=== PATIENT | female | born 1975 | race Caucasian/White ===

== ENCOUNTER 2018-12-16 20:33 | Emergency (ER) | payer MEDICARE, MEDICAID, SELFPAY ==
[2018-12-16 20:46] VITALS: BP 141/91; PULSE 140; RESP 29; TEMP 36.8; O2SAT 97
[2018-12-16 20:51] VITALS: RESP 36
--- NOTE | 2018-12-16 20:58 | ED.GENADUL_ITS ---
Discharge Plan Disposition Patient Disposition: HOME Condition: Stable Discharge Details Chief Complaint: Anxiety Clinical Impression: Panic attack Primary Care Provider: Edie Ellis ED Provider: Taurus Ricardo Tokio Meds and New Rx's Prescriptions: Continued glipizide 5 MG tablet extended release 24hr 10 mg PO BID RF: 0 naproxen 250 MG tablet 500 mg PO BID RF: 0 metoprolol succinate 50 MG tablet extended release 24 hr 125 mg PO DAILY Qty: 225 RF: 3 vitamin W81-ltthu acid 1 EACH tablet 1 ea PO DAILY RF: 0 terconazole 45 GM cream 45 gm VG HS Qty: 7 RF: 0 clonazepam [Klonopin] 1 MG tablet 1 mg PO PRN PRNRF: 0 hydromorphone [Dilaudid] 2 MG tablet 4 mg PO BID RF: 0 paroxetine HCl [Paxil] 20 MG tablet 60 mg PO DAILY RF: 0 rosuvastatin [Crestor] 5 MG tablet 10 mg PO QPM RF: 0 lisinopril 10 MG tablet 10 mg PO DAILY RF: 0 omeprazole [Prilosec] 20 MG capsule,delayed release(DR/EC) 20 mg PO DAILY RF: 0 albuterol sulfate 8.5 GM HFA aerosol inhaler 2 puff Inhalation Q4H PRN PRNRF: 0 naratriptan 2.5 MG tablet 2.5 mg PO PRN PRNRF: 0 aspirin [Aspir-Low] 81 MG tablet,delayed release (DR/EC) 81 mg PO DAILY RF: 0 metformin 500 MG tablet extended release 24 hr 1,000 mg PO BID RF: 0 riboflavin (vitamin B2) [Vitamin B-2] 50 MG tablet 100 mg PO DAILY RF: 0 norethindrone acetate 5 MG tablet 5 mg PO .BID-5 DAYS--QD X 5 RF: 0 Lyrica 75 MG capsule 75 mg PO .2-3 XDAY RF: 0 valacyclovir [Valtrex] 1,000 MG tablet 2 g PO Q12H PRNRF: 0 ondansetron HCl 4 MG tablet 4 mg PO Q8H PRNRF: 0 levothyroxine [Synthroid] 25 MCG tablet 25 mcg PO DAILY RF: 0 nortriptyline 10 MG capsule 20 mg PO HS RF: 0 Januvia 50 MG tablet 50 mg PO DAILY RF: 0 magnesium oxide 400 MG tablet 400 mg PO BID RF: 0 oxycodone 10 MG tablet 10 mg PO Q6H PRN PRNQty: 14 RF: 0 Discharge Instructions Instructions: Panic Attack (ED) Medical Decision Making 43 yo female with hx of anxiety and depression comes in with cc of panic attack. She is speaking very fast and states she can't stop thinking, talking and feels like a volvano is going off in her head with thoughts. She denies drug use. She is very clearly having a panic attack, will treat her with ativan and reassess when calmer pt much more calm now, HR in the 120s but states she still feels anxious but no longer having panic attack. Lab work show shows wbc of 21 and mild anion gap acidosis. She has no fevers, she is caox4 and answering all questions approrpiately and had no fevers at home so I Ssupect this was possibly due to stress response from her panic attack of a day as she has no infectious symptoms and no symptoms or findings to suggest encephalitis. No Hypertension to suggest pheochromcytoma. [facility] evaluated and cleared her to go home and I feel she is safe for d/c, has f/u tomorrow with mental health, she will return if worsening Differential Diagnosis anxiety, panic attack ECG Data Attestation: I personally reviewed and interpreted this ECG (s) as follows: Prior ECG tracings: not available for review Interpretation: sinus tachycardia, rate of 136, pr 128, significant artifact so can't interpret HPI General Mode of arrival: ambulatory . Date/Time Provider Initiated Documentation: 12/16/18 20:34 . Limitations to Documentation: other (anxious) . Information obtained by: patient and family . History of Present Illness 43 year old F presents to the emergency department with the chief complaint of there's a volcano in my head, make it stop, described as moderate, Patient started experiencing this day(s) (1) and it has been constant. No relieving factors improve symptom(s), No exacerbating factors reported . Patient did receive the following treatments prior to arrival, none Related Data Home Medications Medication Instructions Recorded Confirmed clonazepam [Klonopin] 1 mg PO PRN PRN 06/28/13 12/16/18 hydromorphone [Dilaudid] 4 mg PO BID 06/28/13 12/16/18 paroxetine HCl [Paxil] 60 mg PO DAILY 06/28/13 12/16/18 rosuvastatin [Crestor] 10 mg PO QPM 06/28/13 12/16/18 albuterol sulfate 2 puff INHALATION Q4H PRN PRN 12/10/13 12/16/18 lisinopril 10 mg PO DAILY 12/10/13 12/16/18 naratriptan 2.5 mg PO PRN PRN 12/10/13 12/16/18 omeprazole [Prilosec] 20 mg PO DAILY 12/10/13 12/16/18 aspirin [Aspir-Low] 81 mg PO DAILY 01/25/14 12/16/18 glipizide 10 mg PO BID tab-cap 01/15/15 12/16/18 naproxen 500 mg PO BID tab-cap 01/15/15 12/16/18 metformin 1,000 mg PO BID 03/12/15 12/16/18 riboflavin (vitamin B2) [Vitamin 100 mg PO DAILY 03/13/15 12/16/18 B-2] metoprolol succinate 125 mg PO DAILY #225 tab-cap 07/02/15 12/16/18 Januvia 50 mg PO DAILY 03/05/17 12/16/18 levothyroxine [Synthroid] 25 mcg PO DAILY 03/05/17 12/16/18 magnesium oxide 400 mg PO BID 03/05/17 12/16/18 nortriptyline 20 mg PO HS 03/05/17 12/16/18 ondansetron HCl 4 mg PO Q8H PRN 03/05/17 12/16/18 oxycodone 10 mg PO Q6H PRN PRN #14 tab 03/05/17 12/16/18 valacyclovir [Valtrex] 2 g PO Q12H PRN 03/05/17 12/16/18 Lyrica 75 mg PO .2-3 XDAY 03/06/17 12/16/18 norethindrone acetate 5 mg PO .BID-5 DAYS--QD X 5 03/06/17 12/16/18 vitamin B87-hnlbu acid 1 ea PO DAILY 03/11/17 12/16/18 terconazole 45 gm VG HS #7 applic 03/14/17 12/16/18 Previous Rx's Medication Instructions Recorded oxycodone 10 mg PO Q6H PRN PRN #14 tab 03/05/17 Allergies Allergy/AdvReac Type Severity Reaction Status Date / Time Penicillins Allergy Severe throat Unverified 12/16/18 20:50 closes Sulfa (Sulfonamide Allergy Mild Hives Unverified 12/16/18 20:50 Antibiotics) General Stated Complaint: Anxiety RENATO: 3 Review of Systems Review of Systems All systems reviewed & are unremarkable except as noted in HPI and below Constitutional Denies chills, Denies fever(s) and Denies weakness ENT Denies change in voice Cardiovascular Denies dyspnea Respiratory Denies dyspnea Gastrointestinal Denies abdominal pain, Denies nausea and Denies vomiting Musculoskeletal Denies joint swelling Integumentary/Breasts Denies rash Neurologic Denies weakness [facility] Medical History Anxiety CAD (coronary artery disease) Cardiomyopathy Carpal tunnel syndrome Chronic pain syndrome DUB (dysfunctional uterine bleeding) Depression Diabetes Fatty liver Frequent headaches Hepatomegaly Hyperlipidemia Lactose intolerance Morbid obesity Polycystic ovaries Splenomegaly Tachycardia Social History Smoking/Tobacco Use Status: Current every day Exam Const General: anxious Orientation: alert HENMT Head: normal to inspection Ears: external ears normal General nose exam: external nose normal Mouth: moist mucous membranes Eyes General: appearance normal, both eyes and all related structures Neck Neck: normal visual inspection Resp Effort & Inspection: normal respiratory effort and able to speak in complete sentences Cardio Rate: regular rate Skin General skin exam: no rashes or lesions noted Neuro General: alert and oriented x3 Extrem General: normal to inspection Psych Mental Status: mental status grossly normal Course Vital Signs Temperature 36.8 C 12/16/18 20:46 Pulse 140 H 12/16/18 20:46 Respiratory Rate 29 H 12/16/18 20:46 Blood Pressure 141/91 H 12/16/18 20:46 Pulse Oximetry 97 12/16/18 20:46 Temperature 36.8 C 12/16/18 20:46 Temperature Source Temporal Artery Scan 12/16/18 20:46 Pulse 140 H 12/16/18 20:46 Respiratory Rate 36 H 12/16/18 20:51 Respiratory Effort 12/16/18 20:46 Respiratory Pattern Tachypnea 12/16/18 20:51 Blood Pressure 141/91 H 12/16/18 20:46 Blood Pressure Position Sitting 12/16/18 20:46 Pulse Oximetry 97 12/16/18 20:46 Oxygen Delivery Method Room Air 12/16/18 20:46 Oxygen Flow Rate 0 12/16/18 20:46 Pain Level 0 12/16/18 20:46
[2018-12-16] MEDS: LORazepam 2 MG/ML VIAL IVP (21:04)
[2018-12-16] MEDS: Haloperidol 5 MG/ML VIAL 2.5 MG IM/IV (21:16)
[2018-12-16 21:45] LABS: Abs Immature Grans 0.08 k/cumm (0.0-0.09); HCT 42.2 % (36.0-46.0); HGB 14.6 g/dL (12.0-15.5); Mean Corp. HGB Concentration 34.6 g/dL (32.0-36.0); Mean Corpuscular Hemoglobin 29.8 pg (27.0-33.0); Mean Corpuscular Volume 86.1 fL (80-95); Mean Platelet Volume 11.5 fL (8.0-11.0); Platelet Count 277 x1000/uL (130-400); RBC Distribution Width 14.5 % (11.7-14.6); White Blood Cell Count 21.48 k/cumm (4.4-10.8)
[2018-12-16 21:59] LABS: Absolute Neutrophil Count 15.04 k/cumm (1.2-6.7)
[2018-12-16 22:00] LABS: Absolute Eosinophil Count 0.21 k/cumm (0.0-0.7); Absolute Lymphocyte Count 5.58 k/cumm (1.2-3.4); Absolute Monocyte Count 0.64 k/cumm (0.11-0.7); Atypical Lymphocytes % 7; Diff Comment Manual Differential; RBC Morphology Normal
[2018-12-16 22:08] LABS: ALT 29 U/L (12-78); AST 16 U/L (15-37); Alkaline Phosphatase 63 U/L (46-116); Anion Gap 15.1 mmol/L (3-11); BUN 14 mg/dL (7-18); Bilirubin, Total 0.7 mg/dL (0.2-1.0); CO2 20.9 mmol/L (21.0-32.0); CREATININE 0.98 mg/dL (0.55-1.02); Calcium 9.4 mg/dL (8.5-10.1); Chloride 97 mmol/L (98-107); Glucose 352 mg/dL (70-100); Potassium 4.9 mmol/L (3.5-5.1); Sodium 133 mmol/L (136-145); TSH (W/Ref FT4) 1.29 uIU/mL (0.358-3.74); Total Protein 7.8 g/dL (6.4-8.2)
[2018-12-16 22:17] LABS: ETHANOL BLOOD < 3.0 mg/dL (<3); Troponin I < 0.02 ng/mL (0.00-0.06)
[2018-12-16 22:22] LABS: Salicylate 3.3 mg/dL (2.8-20.0)
[2018-12-16 22:33] LABS: Acetaminophen < 2 ug/mL (10-30)
--- NOTE | 2018-12-16 23:05 | PDOC.MHCN ---
Date of service: 12/16/18 Time of Service: 23:05 Mental Health Crisis Note Presenting Issue How did you arrive at the ED and why did you come: Jammie was was having a severe panic attack that she could not deescalate from. She was recommended to come to [facility] by he crisis counselor over the phone after not being able to be redirected or deescalated over the phone. Her boyfriend drove her to the hospital. Precipitating Factors Following the panic attack, she stopped reporting she was suicidal and was committed to going to appointments she had begun making earlier this week to address her mental health and medication difficulties. She does not have a history of mental health inpatient treatment or suicidal attempts. However, she also has been treated for pain and has several medications both controlled and non-controlled. Disposition BEHAVIOR: Panic/needed to be sedated by medical staff EYE CONTACT: fair MOOD: insomnolen AFFECT: constricted APPETITE: fair SLEEP(trouble falling/staying asleep: trouble falling asleep Plan Jammie will be released to her home with her family. She will follow up with [facility] clinician and outreach pillowcase maker due to recent walk-in she had two days ago initiating treatment. She will follow up with her doctor to begin discussing her medications. Finally, she will call [facility] emergency services if she needs assistance in the future with her anxiety/panic symptoms.
--- NOTE | 2018-12-16 23:13 | PDOC.MHCN_ITS ---
Date of service: 12/16/18 Time of Service: 23:05 Mental Health Crisis Note Presenting Issue How did you arrive at the ED and why did you come: Jammie was was having a severe panic attack that she could not deescalate from. She was recommended to come to [facility] by he crisis counselor over the phone after not being able to be redirected or deescalated over the phone. Her boyfriend drove her to the hospital. Precipitating Factors Following the panic attack, she stopped reporting she was suicidal and was committed to going to appointments she had begun making earlier this week to address her mental health and medication difficulties. She does not have a history of mental health inpatient treatment or suicidal attempts. However, she also has been treated for pain and has several medications both controlled and non-controlled. Disposition BEHAVIOR: Panic/needed to be sedated by medical staff EYE CONTACT: fair MOOD: insomnolen AFFECT: constricted APPETITE: fair SLEEP(trouble falling/staying asleep: trouble falling asleep Plan Jammie will be released to her home with her family. She will follow up with [facility] clinician and outreach sample case porter due to recent walk-in she had two days ago initiating treatment. She will follow up with her doctor to begin discussing her medications. Finally, she will call [facility] emergency services if she needs assistance in the future with her anxiety/panic symptoms.
[2018-12-16 23:15] VITALS: BP 141/91; PULSE 140; RESP 36; TEMP 36.8; O2SAT 97
== END 2018-12-16 23:22 | disposition home or self-care (01) ==
PROVIDERS: Emergency Provider Emergency Medicine; PCP Family Medicine
DX: F41.0 Panic disorder [episodic paroxysmal anxiety] (principal); E11.9 Type 2 diabetes mellitus without complications; Z79.84 Long term (current) use of oral hypoglycemic drugs
CPT/HCPCS: 36415; 80053; 93005; 96374; 99284; 80320; 80329; 84443; 84484; 85025; 93010; J1630; J2060

== ENCOUNTER 2018-12-24 15:48 | Emergency (ER) | payer MEDICARE, MEDICAID, SELFPAY ==
[2018-12-24 15:56] VITALS: BP 119/72; PULSE 98; RESP 18; TEMP 36.5; O2SAT 98
--- NOTE | 2018-12-24 16:23 | W.ED.GENAD ---
Discharge Plan Disposition Patient Disposition: [facility] Condition: Stable Discharge Details Chief Complaint: PsychEval Clinical Impression: Depression with suicidal ideation, Anxiety Primary Care Provider: Edie Ellis ED Provider: Kiley Collado Home Meds and New Rx's Prescriptions: No Action glipizide 5 MG tablet extended release 24hr 10 mg PO BID RF: 0 naproxen 250 MG tablet 500 mg PO BID RF: 0 metoprolol succinate 50 MG tablet extended release 24 hr 125 mg PO DAILY Qty: 225 RF: 3 vitamin P04-ivkmk acid 1 EACH tablet 1 ea PO DAILY RF: 0 terconazole 45 GM cream 45 gm VG HS Qty: 7 RF: 0 clonazepam [Klonopin] 1 MG tablet 1 mg PO PRN PRNRF: 0 hydromorphone [Dilaudid] 2 MG tablet 4 mg PO BID RF: 0 paroxetine HCl [Paxil] 20 MG tablet 60 mg PO DAILY RF: 0 rosuvastatin [Crestor] 5 MG tablet 10 mg PO QPM RF: 0 lisinopril 10 MG tablet 10 mg PO DAILY RF: 0 omeprazole [Prilosec] 20 MG capsule,delayed release(DR/EC) 20 mg PO DAILY PRNRF: 0 albuterol sulfate 8.5 GM HFA aerosol inhaler 2 puff Inhalation Q4H PRN PRNRF: 0 naratriptan 2.5 MG tablet 2.5 mg PO PRN PRNRF: 0 aspirin [Aspir-Low] 81 MG tablet,delayed release (DR/EC) 81 mg PO DAILY RF: 0 metformin 500 MG tablet extended release 24 hr 1,000 mg PO BID RF: 0 riboflavin (vitamin B2) [Vitamin B-2] 50 MG tablet 100 mg PO DAILY RF: 0 Lyrica 75 MG capsule 75 mg PO .2-3 XDAY RF: 0 valacyclovir [Valtrex] 1,000 MG tablet 2 g PO Q12H PRNRF: 0 ondansetron HCl 4 MG tablet 4 mg PO Q8H PRNRF: 0 levothyroxine [Synthroid] 25 MCG tablet 25 mcg PO DAILY RF: 0 nortriptyline 10 MG capsule 20 mg PO HS RF: 0 Januvia 50 MG tablet 50 mg PO DAILY RF: 0 magnesium oxide 400 MG tablet 400 mg PO BID RF: 0 Discharge Data Discharge Date/Time-TO BE ENTERED AT DEPARTURE: 12/25/18 13:53 Medical Decision Making <Russell De Luna MD - Last Filed: 12/28/18 20:33> Patient with no significant physical complaint and no major active medical issues. Does have history of cardiomyopathy. EKG today is sinus tach at 101. Normal intervals and axis. Normal ST segments. Laboratory studies from the had some abnormalities. I repeated them here. Her white count is down. Chemistries have normalized. Glucose a little high at 180 but not bad. Liver function normal. Tylenol and aspirin 3 and 4 respectively presumably from cold medications. Patient medically clear. She is here voluntary. She has CPSO and observation because of her suicidal thoughts. She will remain in the department overnight as we continue to work on placement. Patient signed over to Dr. Martinez. Medical Records Medical records reviewed: Yes I reviewed the patient's medical records. Lab Data Lab results reviewed: Yes I reviewed the patient's lab results. ECG Data Attestation: I personally reviewed and interpreted this ECG (s) as follows: Interpretation: Sinus tachycardia. Normal intervals and axis. Normal ST segments. HPI <Russell De Luna MD - Last Filed: 12/28/18 20:33> General Mode of arrival: ambulatory. Date/Time Provider Initiated Documentation: 12/24/18 16:15. Limitations to Documentation: no limitations. Information obtained by: patient and old records reviewed. HPI Narrative: Patient arrives here for mental health evaluation. Patient was seen here on December 16 for panic attack. She is reporting increasing anxiety and depression. She is having persistent suicidal ideation with plan. She reports that she has not carried out this plan because her family has not left her along. She would drive her car into a tree. She has no real physical complaints of. She has a little bit of a cold. She has been following up with mental health. They have convinced her along with her family for voluntary psychiatric admission. Related Data Home Medications Medication Instructions Recorded Confirmed clonazepam [Klonopin] 1 mg PO PRN PRN 06/28/13 12/24/18 hydromorphone [Dilaudid] 4 mg PO BID 06/28/13 12/24/18 paroxetine HCl [Paxil] 60 mg PO DAILY 06/28/13 12/24/18 rosuvastatin [Crestor] 10 mg PO QPM 06/28/13 12/24/18 albuterol sulfate 2 puff INHALATION Q4H PRN PRN 12/10/13 12/24/18 lisinopril 10 mg PO DAILY 12/10/13 12/24/18 naratriptan 2.5 mg PO PRN PRN 12/10/13 12/24/18 omeprazole [Prilosec] 20 mg PO DAILY PRN 12/10/13 12/24/18 aspirin [Aspir-Low] 81 mg PO DAILY 01/25/14 12/24/18 glipizide 10 mg PO BID tab-cap 01/15/15 12/24/18 naproxen 500 mg PO BID tab-cap 01/15/15 12/24/18 metformin 1,000 mg PO BID 03/12/15 12/24/18 riboflavin (vitamin B2) [Vitamin 100 mg PO DAILY 03/13/15 12/24/18 B-2] metoprolol succinate 125 mg PO DAILY #225 tab-cap 07/02/15 12/24/18 Januvia 50 mg PO DAILY 03/05/17 12/24/18 levothyroxine [Synthroid] 25 mcg PO DAILY 03/05/17 12/24/18 magnesium oxide 400 mg PO BID 03/05/17 12/24/18 nortriptyline 20 mg PO HS 03/05/17 12/24/18 ondansetron HCl 4 mg PO Q8H PRN 03/05/17 12/24/18 valacyclovir [Valtrex] 2 g PO Q12H PRN 03/05/17 12/24/18 Lyrica 75 mg PO .2-3 XDAY 03/06/17 12/24/18 vitamin Q30-ztwlu acid 1 ea PO DAILY 03/11/17 12/24/18 terconazole 45 gm VG HS #7 applic 03/14/17 12/24/18 Allergies Allergy/AdvReac Type Severity Reaction Status Date / Time Penicillins Allergy Severe throat Unverified 12/24/18 16:03 closes Sulfa (Sulfonamide Allergy Mild Hives Unverified 12/24/18 16:03 Antibiotics) General Stated Complaint: PsychEval RENATO: 2 Review of Systems <Russell De Luna MD - Last Filed: 12/28/18 20:33> Constitutional Denies chills, Denies fever(s), Denies headache(s) and Denies weakness Eyes Denies change in vision and Denies eye pain ENT Denies otalgia, Denies headache(s), Reports nasal congestion, Denies neck pain and Denies sore throat Cardiovascular Denies chest pain, Denies diaphoresis, Denies syncope, Denies leg edema and Denies dyspnea Respiratory Denies cough and Denies dyspnea Gastrointestinal Denies abdominal pain, Denies diarrhea, Denies nausea and Denies vomiting Genitourinary Denies dysuria and Denies pelvic pain Musculoskeletal Denies back pain and Denies neck pain Neurologic Denies abnormal speech, Denies confusion, Denies syncope, Denies headache(s) and Denies weakness Psychiatric Reports anxiety, Denies confusion, Reports depression, Denies homicidal ideation and Reports suicidal ideation PFS <Russell De Luna MD - Last Filed: 12/28/18 20:33> Medical History Anxiety (Chronic) CAD (coronary artery disease) (Chronic) Cardiomyopathy (Chronic) Carpal tunnel syndrome (Chronic) Chronic pain syndrome (Chronic) DUB (dysfunctional uterine bleeding) (Chronic) Depression (Chronic) Diabetes (Chronic) Fatty liver (Chronic) Frequent headaches (Chronic) Hepatomegaly (Chronic) Hyperlipidemia (Chronic) Lactose intolerance (Chronic) Morbid obesity (Chronic) Polycystic ovaries (Chronic) Splenomegaly (Chronic) Tachycardia (Chronic) Surgical History History of section (Inactive) Previous back surgery (Inactive) Social History Smoking/Tobacco Use Status: Current every day Exam <Russell De Luna MD - Last Filed: 12/28/18 20:33> Const General: cooperative and no acute distress Orientation: alert and oriented x3 HENMT Head: normocephalic and atraumatic Neck Neck: trachea midline and supple Resp Effort & Inspection: normal respiratory effort Auscultation: clear to auscultation bilaterally Cardio Rate: regular rate Rhythm: regular rhythm Heart Sounds: S1 normal and S2 normal Skin General skin exam: no rashes or lesions noted Neuro General: alert, oriented x3, no focal motor deficits and CN's II-XI intact bilaterally Cognition: normal cognition Speech: speech normal Gait: normal gait Extrem General: no clubbing, cyanosis or edema Psych Appearance: grossly normal Mental Status: mental status grossly normal Speech and Movement: speech and movement normal Attitude: cooperative Thought Content: suicidality Course <Russell De Luna MD - Last Filed: 12/28/18 20:33> Vital Signs Temperature 97.7 F 12/24/18 15:56 Pulse 98 H 12/24/18 15:56 Respiratory Rate 18 12/24/18 15:56 Blood Pressure 119/72 12/24/18 15:56 Pulse Oximetry 98 12/24/18 15:56 Temperature 97.7 F 12/24/18 15:56 Temperature Source Temporal Artery Scan 12/24/18 15:56 Pulse 98 H 12/24/18 15:56 Respiratory Rate 18 12/24/18 15:56 Respiratory Effort Non-Labored 12/24/18 16:10 Blood Pressure 119/72 12/24/18 15:56 Blood Pressure Position Sitting 12/24/18 15:56 Pulse Oximetry 98 12/24/18 15:56 Oxygen Delivery Method Room Air 12/24/18 15:56 Oxygen Flow Rate 0 12/24/18 15:56 Pain Level 6 12/24/18 15:56 Comment 12/24/18 15:56 Sign Out <Russell De Luna MD - Last Filed: 12/28/18 20:33> Sign Out Data: Sign Out Comment: signed out pending psych placement Last updated by Russell De Luna MD at 12/24/18 23:53 Post-Handoff Eval: pt signed out pending psychiatric bed placement for SI. Pt is volunatary at this time. SHe is calm and cooperative here, no changes from first hx/physical. Mental health to continue bed search in AM, will remain in ED overnight given no med/surge beds. Pt will be signed out at change of shift pending psych bed placement Sign Out Comment: follow up on mental health placement Last updated by aTurus Ricardo MD at 12/25/18 07:23 Post-Handoff Eval: Patient stable overnight. Awaiting mental health bed placement. Patient received her regular morning medication. 1300 -- pt accepted to [place]. Accepting physician Dr. Abelino Velarde.
[2018-12-24 17:08] LABS: Abs Immature Grans 0.05 k/cumm (0.0-0.09); Absolute Basophil Count 0.06 k/cumm (0.0-0.2); Absolute Eosinophil Count 0.33 k/cumm (0.0-0.7); Absolute Lymphocyte Count 4.83 k/cumm (1.2-3.4); Absolute Monocyte Count 0.53 k/cumm (0.11-0.7); Absolute Neutrophil Count 5.29 k/cumm (1.2-6.7); Basophils % 0.5; HCT 42.6 % (36.0-46.0); HGB 14.3 g/dL (12.0-15.5); Immature Grans % 0.5; Lymphocytes % 43.5; Mean Corp. HGB Concentration 33.6 g/dL (32.0-36.0); Mean Corpuscular Hemoglobin 29.5 pg (27.0-33.0); Mean Corpuscular Volume 87.8 fL (80-95); Mean Platelet Volume 10.9 fL (8.0-11.0); Monocytes % 4.8; Neutrophils % 47.7; Platelet Count 236 x1000/uL (130-400); RBC 4.85 m/cumm (4.00-5.20); RBC Distribution Width 14.8 % (11.7-14.6)
[2018-12-24 17:25] LABS: ALT 31 U/L (12-78); AST 17 U/L (15-37); Albumin 3.9 g/dL (3.4-5.0); Alkaline Phosphatase 56 U/L (46-116); Anion Gap 11.1 mmol/L (3-11); BUN 16 mg/dL (7-18); Bilirubin, Total 0.5 mg/dL (0.2-1.0); CO2 26.9 mmol/L (21.0-32.0); CREATININE 0.75 mg/dL (0.55-1.02); Calcium 9.6 mg/dL (8.5-10.1); Chloride 99 mmol/L (98-107); Glucose 180 mg/dL (70-100); Potassium 4.1 mmol/L (3.5-5.1); Sodium 137 mmol/L (136-145); Total Protein 7.8 g/dL (6.4-8.2)
[2018-12-24 17:42] LABS: Bilirubin Small (Negative); Blood Negative (Negative); Clarity Clear; Glucose Negative (Negative); Ketones 15 mg/dL (Negative); Leukocyte Esterase Negative (Negative); Nitrite Negative (Negative); Specific Gravity >= 1.030 (1.005-1.025)
[2018-12-24 17:44] LABS: ETHANOL BLOOD < 3.0 mg/dL (<3)
[2018-12-24 17:49] LABS: Acetaminophen 3 ug/mL (10-30)
[2018-12-24 17:51] LABS: *AMPHETAMINES SCREEN URINE Negative (Negative); *BARBITURATES SCREEN URINE Negative (Negative); *BENZODIAZEPINES SCREEN URINE Negative (Negative); Cannabinoids THC Negative (Negative); Cocaine Screen,Urine Negative (Negative); METHADONE URINE SCREEN Negative (Negative); OPIATES URINE SCREEN Negative (Negative)
[2018-12-24 17:55] LABS: Tricyclic Antidepressants POSITIVE (Negative)
[2018-12-24 18:05] LABS: Bacteria Rare HPF (Negative); C & S Indicated? No/Sq. Contamination; Casts Negative LPF (Negative); Crystals Negative HPF (Negative); Epithelial Cells Many HPF (Negative); Mucus Trace (Negative); Other Cells Rare Renal (Negative); RBC 0-2 (0-2); WBC 0-2 HPF (0-5)
--- NOTE | 2018-12-24 23:01 | PDOC.ERCMPRO ---
- If Service Date Differs Date of service: 12/24/18 Time of Service: 23:01 Care Management Progress Note Jammie presents to the Emergency room with SI. She reports that her plan is to drive her car off the road. Jammie has had an attempt years ago of an Overdose. Jammie is currently receiving services in the community. She seems Karuna Garcia for therapy through [facility], and sees Isabell Zhujose through [facility]. Jammie has 3 children whom reside locally, and also has a boyfriend and ex- whom are supportive. VOLUNTARY FOR INPATIENT PSYCHIATRIC STABILIZATION. Current behaviors: Jammie has been calm and cooperative with interactions since arriving at [facility]. She has been appropriate throughout her time at [facility]. Huddle Participants: Zoila Muniz, [facility], CHARLY Whyte, CHARLY Lopes Tag Clerk, ADY Boyer. Time and Date: 12/24/18 @ 2230 Safety plan has been established with patient, and care team, to adhere to patient goals, identify restrictions based on behavioral status, address nutrition, and determine allowed personal belongings, tools for hygiene and personal care. Determine level of activity including ambulation, level of supervision, visitors, and determine privileges based on behaviors and level of engagement by pt. SAFETY PLAN: 1. Will remain on suicide precautions, and in paper clothes. 2. Will remain in room under direct supervision of one-on-one staff at all times provided by YOSELIN, RADHAMES material crew supervisor. 3. May have paper cups, plates, finger foods as well as a metal spoon with which to eat meals. [facility] staff will be responsible for accounting of utensils after meals. 4. Follow [facility] Management of the Admitted Behavioral Health Patient policy. 5. Comfort bath system only. 6. No personal belongings all have been removed from the room 7. Visitors- Three children 18 y/o, 23 y/o, 8y/o. Boyfriend and Ex allowed as well. 8. Activities May have crayons/paper for coloring/activities 9. Due to VOLUNTARY status, if patient wishes to leave [facility], the [facility] fruit and vegetable factory worker must be contacted to re-evaluate patient prior to patient exiting the building. 10. Phone May use hospital phone to be removed from room once finished with phone call. Patient is currently voluntarily at [facility] and seeking inpatient admission when a bed becomes available. [facility] Frontline Outsole Splicer will continue seeking placement. Please contact the Manufacturing Job Titles Inpatient Auditor ([phone]) and [facility] Outsole Splicer ([phone]) for any needed changes in the Safety Plan. Safety plan has been provided to interdepartmental care team including Clinical Coordinator, Nursing Tag Clerk. Placement: Referrals have been faxed to: Karli Lyles, [facility], [facility], and [facility].
--- NOTE | 2018-12-24 23:09 | CMPROGNOTE_ITS ---
- If Service Date Differs Date of service: 12/24/18 Time of Service: 23:01 Care Management Progress Note Jammie presents to the Emergency room with SI. She reports that her plan is to drive her car off the road. Jammie has had an attempt years ago of an Overdose. Jammie is currently receiving services in the community. She seems Karuna Garcia for therapy through [facility], and sees Isabell Zhujose through [facility]. Jammie has 3 children whom reside locally, and also has a boyfriend and ex- whom are supportive. VOLUNTARY FOR INPATIENT PSYCHIATRIC STABILIZATION. Current behaviors: Jammie has been calm and cooperative with interactions since arriving at [facility]. She has been appropriate throughout her time at [facility]. Huddle Participants: Zoila Muniz, [facility], CHARLY Whyte, CHARLY Lopes Saturation Equipment Operator, ADY Boyer. Time and Date: 12/24/18 @ 2230 Safety plan has been established with patient, and care team, to adhere to patient goals, identify restrictions based on behavioral status, address nutrition, and determine allowed personal belongings, tools for hygiene and pers onal care. Determine level of activity including ambulation, level of supervision, visitors, and determine privileges based on behaviors and level of engagement by pt. SAFETY PLAN: 1. Will remain on suicide precautions, and in paper clothes. 2. Will remain in room under direct supervision of one-on-one staff at all times provided by YOSELIN, RADHAMES water jet operator. 3. May have paper cups, plates, finger foods as well as a metal spoon with which to eat meals. [facility] staff will be responsible for accounting of utensils after meals. 4. Follow [facility] Management of the Admitted Behavioral Health Patient policy. 5. Comfort bath system only. 6. No personal belongings all have been removed from the room 7. Visitors- Three children 18 y/o, 23 y/o, 8y/o. Boyfriend and Ex allowed as well. 8. Activities May have crayons/paper for coloring/activities 9. Due to VOLUNTARY status, if patient wishes to leave [facility], the [facility] first calender worker must be contacted to re-evaluate patient prior to patient exiting the building. 10. Phone May use hospital phone to be removed from room once finished with phone call. Patient is currently voluntarily at [facility] and seeking inpatient admission when a bed becomes available. [facility] Frontline Flake Miller Helper will continue seeking placement. Please contact the Graphics Software Engineer Doll Surgeon ([phone]) and [facility] Flake Miller Helper ([phone]) for any needed changes in the Safety Plan. Safety plan has been provided to interdepartmental care team including Clinical Coordinator, Nursing Saturation Equipment Operator. Placement: Referrals have been faxed to: Karli Lyles, [facility], [facility], and [facility].
[2018-12-25] MEDS: clonazePAM 1 MG TAB PO (01:03)
[2018-12-25] MEDS: glipiZIDE 10 MG TAB PO ×2 (01:03→10:40)
[2018-12-25] MEDS: HYDROmorphone 4 MG TAB PO ×2 (01:04→09:52)
[2018-12-25] MEDS: Lisinopril 10 MG TAB PO (01:04)
[2018-12-25] MEDS: metFORMIN 500 MG TAB 1000 MG PO (01:08)
[2018-12-25] MEDS: PARoxetine 20 MG TAB 60 MG PO (01:08)
[2018-12-25] MEDS: Pregabalin 50 MG CAP 75 MG PO (01:08)
[2018-12-25] MEDS: Rosuvastatin 10 MG TAB (01:08)
[2018-12-25] MEDS: Magnesium Oxide 400 MG TAB PO (10:36)
[2018-12-25] MEDS: Metoprolol CR 50 MG TABCR (10:37)
[2018-12-25] MEDS: Ondansetron O.D.T. 4 MG TABEF PO (10:39)
[2018-12-25] MEDS: metFORMIN 500 MG TAB (10:40)
[2018-12-25] MEDS: sitaGLIPtin 25 MG TABLET 50 MG PO (10:40)
[2018-12-25 12:51] VITALS: BP 110/73; PULSE 96; RESP 16; TEMP 36.3; O2SAT 95
--- NOTE | 2018-12-25 16:29 | PDOC.MHCN ---
Date of service: 12/25/18 Time of Service: 09:00 Mental Health Crisis Note Presenting Issue How did you arrive at the ED and why did you come: Jammie came to the ED yesterday via her boyfriend as planned with the daytime clinician. Jammie presented with increase in anxiety, depression and SI. Precipitating Factors Jammie continues to have intrusive thoughts to kill herself and she had consequently developed a plan to drive her car off the road. Disposition BEHAVIOR: Jammie is cooperative and quiet. EYE CONTACT: Good eye contact. MOOD: Jammie presents still with depression and anxiety although is appearing less anxious today. AFFECT: flat most of the time but engaging others. APPETITE: Appetite is normal SLEEP(trouble falling/staying asleep: Poor sleep last night. She read quietly in her room all night. Plan Jammie was accepted to [facility] for admission and left [facility] about 2pm. Provisional Diagnosis Depressive d.o nos with SI Signature Clinician's Name/Title: Zoila Muniz MS, [facility] Emergency Services Clinician
--- NOTE | 2018-12-25 16:40 | PDOC.MHCN_ITS ---
Date of service: 12/25/18 Time of Service: 09:00 Mental Health Crisis Note Presenting Issue How did you arrive at the ED and why did you come: Jammie came to the ED yesterday via her boyfriend as planned with the daytime clinician. Jammie presented with increase in anxiety, depression and SI. Precipitating Factors Jammie continues to have intrusive thoughts to kill herself and she had consequently developed a plan to drive her car off the road. Disposition BEHAVIOR: Jammie is cooperative and quiet. EYE CONTACT: Good eye contact. MOOD: Jammie presents still with depression and anxiety although is appearing less anxious today. AFFECT: flat most of the time but engaging others. APPETITE: Appetite is normal SLEEP(trouble falling/staying asleep: Poor sleep last night. She read quietly in her room all night. Plan Jammie was accepted to [facility] for admission and left [facility] about 2pm. Provisional Diagnosis Depressive d.o nos with SI Signature Clinician's Name/Title: Zoila Muniz MS, [facility] Emergency Services Clinician
== END 2018-12-25 13:53 | disposition short-term general hospital (02) ==
PROVIDERS: Emergency Medicine; Emergency Provider Physician Assistant; PCP Family Medicine
DX: F41.8 Other specified anxiety disorders (principal); R45.851 Suicidal ideations; R00.0 Tachycardia, unspecified; E11.9 Type 2 diabetes mellitus without complications; F17.210 Nicotine dependence, cigarettes, uncomplicated
CPT/HCPCS: 36415; 36416; 80053; 80307; 81025; 82962; 93005; 99285; 80320; 80329; 81003; 81015; 85025; 93010; 99284

== ENCOUNTER 2019-01-10 08:44 | Outpatient (CLI) | payer MEDICARE, MEDICAID, SELFPAY ==
[2019-01-10 10:00] LABS: HCT 43.9 % (36.0-46.0); HGB 14.3 g/dL (12.0-15.5); Mean Corp. HGB Concentration 32.6 g/dL (32.0-36.0); Mean Corpuscular Hemoglobin 29.4 pg (27.0-33.0); Mean Corpuscular Volume 90.1 fL (80-95); Mean Platelet Volume 10.8 fL (8.0-11.0); Platelet Count 264 x1000/uL (130-400); RBC 4.87 m/cumm (4.00-5.20); RBC Distribution Width 15.2 % (11.7-14.6); White Blood Cell Count 9.68 k/cumm (4.4-10.8)
[2019-01-10 10:38] LABS: Hemoglobin A1C 6.8 % (4.5-6.2)
[2019-01-10 11:18] LABS: ALT 41 U/L (12-78); AST 22 U/L (15-37); Albumin 3.6 g/dL (3.4-5.0); Alkaline Phosphatase 47 U/L (46-116); Anion Gap 7.3 mmol/L (3-11); BUN 14 mg/dL (7-18); Bilirubin, Total 0.5 mg/dL (0.2-1.0); CO2 30.7 mmol/L (21.0-32.0); CREATININE 0.71 mg/dL (0.55-1.02); Calcium 9.2 mg/dL (8.5-10.1); Chloride 101 mmol/L (98-107); Cholesterol 107 mg/dL (50-200); Glucose 174 mg/dL (70-100); HDL Cholesterol 28 mg/dL (40-60); LDL CHOLESTEROL 55 mg/dL (<100); Magnesium 1.5 mg/dL (1.8-2.4); Potassium 4.9 mmol/L (3.5-5.1); Sodium 139 mmol/L (136-145); TSH (W/Ref FT4) 0.91 uIU/mL (0.358-3.74); Total Protein 6.7 g/dL (6.4-8.2); Triglyceride 188 mg/dL (30-150)
== END 2019-01-10 09:04 ==
PROVIDERS: PCP Family Medicine; Visit Provider Family Medicine
DX: E11.9 Type 2 diabetes mellitus without complications (principal); E83.42 Hypomagnesemia; E03.9 Hypothyroidism, unspecified
CPT/HCPCS: 36415; 80053; 80061; 83721; 85027; 83036; 83735; 84443

== ENCOUNTER 2019-01-20 02:22 | Outpatient (CLI) | payer MEDICARE, MEDICAID, SELFPAY ==
--- NOTE | 2019-01-24 11:57 | HOLTER_ITS ---
DATE OF DICTATION: January 24, 2019 48-Hour Study Baseline rhythm sinus. Rare single PAC. No atrial fibrillation or SVT. No ventricular ectopy. No bradycardia/pause. No symptoms. Average heart rate 93 bpm, range 75-124 bpm.
== END 2019-01-20 02:42 ==
PROVIDERS: PCP Family Medicine; Visit Provider Family Medicine
DX: R00.2 Palpitations (principal); I49.1 Atrial premature depolarization
CPT/HCPCS: 93225

== ENCOUNTER 2019-01-22 22:17 | Emergency (ER) | payer MEDICARE, MEDICAID, SELFPAY ==
[2019-01-22 22:25] VITALS: BP 119/71; PULSE 91; RESP 18; O2SAT 99
--- NOTE | 2019-01-22 22:43 | W.ED.GENAD ---
Discharge Plan Discharge Details Chief Complaint: PsychEval Primary Care Provider: Edie Ellis ED Provider: Jalen Shah Home Meds and New Rx's Prescriptions: No Action glipizide 5 MG tablet extended release 24hr 10 mg PO BID RF: 0 naproxen 250 MG tablet 500 mg PO BID RF: 0 metoprolol succinate 50 MG tablet extended release 24 hr 125 mg PO DAILY Qty: 225 RF: 3 vitamin C12-iojel acid 1 EACH tablet 1 ea PO DAILY RF: 0 clonazepam [Klonopin] 1 MG tablet 1 mg PO PRN PRNRF: 0 hydromorphone [Dilaudid] 2 MG tablet 4 mg PO BID RF: 0 paroxetine HCl [Paxil] 20 MG tablet 60 mg PO DAILY RF: 0 rosuvastatin [Crestor] 5 MG tablet 10 mg PO QPM RF: 0 lisinopril 10 MG tablet 10 mg PO DAILY RF: 0 omeprazole [Prilosec] 20 MG capsule,delayed release(DR/EC) 20 mg PO DAILY PRNRF: 0 albuterol sulfate 8.5 GM HFA aerosol inhaler 2 puff Inhalation Q4H PRN PRNRF: 0 naratriptan 2.5 MG tablet 2.5 mg PO PRN PRNRF: 0 aspirin [Aspir-Low] 81 MG tablet,delayed release (DR/EC) 81 mg PO DAILY RF: 0 metformin 500 MG tablet extended release 24 hr 1,000 mg PO BID RF: 0 riboflavin (vitamin B2) [Vitamin B-2] 50 MG tablet 100 mg PO DAILY RF: 0 Lyrica 75 MG capsule 75 mg PO .2-3 XDAY RF: 0 Bydureon 2 mg/0.65 mL Pen Injector RF: 0 ketorolac 10 mg Tablet 10 mg PO DAILY PRNRF: 0 aripiprazole [Abilify] 5 mg Tablet 5 mg PO HS RF: 0 valacyclovir [Valtrex] 1,000 MG tablet 2 g PO Q12H PRNRF: 0 ondansetron HCl 4 MG tablet 4 mg PO Q8H PRNRF: 0 levothyroxine [Synthroid] 25 MCG tablet 25 mcg PO DAILY RF: 0 nortriptyline 10 MG capsule 20 mg PO HS RF: 0 Januvia 50 MG tablet 50 mg PO DAILY RF: 0 magnesium oxide 400 MG tablet 400 mg PO BID RF: 0 Medical Decision Making 43-year-old female brought from home by state police after they were called when her family could not get a hold of the patient. She had plans to cut her wrists and attempted suicide. States that she has had slowly declining mood since recent discharge from [facility] psychiatric facility the first week of December Medical screening examination including laboratory analysis performed. Patient stable for further evaluation by mental health screener. Patient given evening doses of her regular medications. Patient interviewed and family interviewed by mental health screener. Plan for safety and outpatient plan to achieve a crisis/respite bed placement was made. Patient is to go home with her family this evening. Lab Data Lab results reviewed: Yes I reviewed the patient's lab results. Laboratory Results - last 24 hr 01/22/19 01/22/19 01/22/19 22:50 22:50 22:59 WBC RBC Hgb Hct MCV MCH MCHC RDW Plt Count MPV Immature Gran % Neutrophils % Lymphocytes % Monocytes % Eosinophils % Basophils % Absolute Neutrophils Absolute Lymphocytes Absolute Monocytes Absolute Eosinophils Absolute Basophils Sodium 139 Potassium 4.0 Chloride 100 Carbon Dioxide 32.7 H Anion Gap 6.3 BUN 20 H Creatinine 1.03 H Estimated GFR/1.73 m2 58.48 Glucose 71 Calcium 8.9 Total Bilirubin 0.4 AST 22 ALT 28 Alkaline Phosphatase 47 Total Protein 7.3 Albumin 3.7 TSH 1.08 Urine Color Yellow Urine Clarity Clear Urine pH 5.5 Ur Specific Freeburn 1.010 Urine Protein Negative Urine Ketones Negative Urine Blood Large H Urine Nitrite Negative Urine Bilirubin Negative Urine Urobilinogen 0.2 Ur Leukocyte Esterase Negative Urine RBC 10-20 H Urine WBC 0-2 Ur Epithelial Cells Many Urine Crystals Negative Urine Bacteria Few Urine Casts Negative Urine Mucus Negative Ur Culture Indicated? No Urine Glucose Negative Urine Opiates Screen Positive Urine Methadone Screen Negative Ur Barbiturates Screen Negative Ur Tricyclics Screen Positive Ur Amphetamines Screen Negative U Benzodiazepines Scrn Positive Urine Cocaine Screen Negative Ur THC Screen Negative Ethyl Alcohol < 3.0 01/22/19 22:59 WBC 8.13 RBC 4.64 Hgb 14.1 Hct 42.3 MCV 91.2 MCH 30.4 MCHC 33.3 RDW 15.2 H Plt Count 190 MPV 11.1 H Immature Gran % 0.2 Neutrophils % 43.8 Lymphocytes % 45.9 Monocytes % 5.9 Eosinophils % 3.7 Basophils % 0.5 Absolute Neutrophils 3.56 Absolute Lymphocytes 3.73 H Absolute Monocytes 0.48 Absolute Eosinophils 0.30 Absolute Basophils 0.04 Sodium Potassium Chloride Carbon Dioxide Anion Gap BUN Creatinine Estimated GFR/1.73 m2 Glucose Calcium Total Bilirubin AST ALT Alkaline Phosphatase Total Protein Albumin TSH Urine Color Urine Clarity Urine pH Ur Specific Freeburn Urine Protein Urine Ketones Urine Blood Urine Nitrite Urine Bilirubin Urine Urobilinogen Ur Leukocyte Esterase Urine RBC Urine WBC Ur Epithelial Cells Urine Crystals Urine Bacteria Urine Casts Urine Mucus Ur Culture Indicated? Urine Glucose Urine Opiates Screen Urine Methadone Screen Ur Barbiturates Screen Ur Tricyclics Screen Ur Amphetamines Screen U Benzodiazepines Scrn Urine Cocaine Screen Ur THC Screen Ethyl Alcohol HPI General Mode of arrival: ambulatory. Date/Time Provider Initiated Documentation: 01/22/19 22:43. Limitations to Documentation: no limitations. Information obtained by: police. History of Present Illness 43 year old F presents to the emergency department with the chief complaint of The brought by [facility] police with suicidal plan, described as moderate and severe, Patient started experiencing this day(s) and it has been constant. No relieving factors improve symptom(s), No exacerbating factors reported . Patient notes no other symptoms.. Patient did receive the following treatments prior to arrival, none Related Data Home Medications Medication Instructions Recorded Confirmed clonazepam [Klonopin] 1 mg PO PRN PRN 06/28/13 01/22/19 hydromorphone [Dilaudid] 4 mg PO BID 06/28/13 01/22/19 paroxetine HCl [Paxil] 60 mg PO DAILY 06/28/13 01/22/19 rosuvastatin [Crestor] 10 mg PO QPM 06/28/13 01/22/19 albuterol sulfate 2 puff INHALATION Q4H PRN PRN 12/10/13 01/22/19 lisinopril 10 mg PO DAILY 12/10/13 01/22/19 naratriptan 2.5 mg PO PRN PRN 12/10/13 01/22/19 omeprazole [Prilosec] 20 mg PO DAILY PRN 12/10/13 01/22/19 aspirin [Aspir-Low] 81 mg PO DAILY 01/25/14 01/22/19 glipizide 10 mg PO BID tab-cap 01/15/15 01/22/19 naproxen 500 mg PO BID tab-cap 01/15/15 01/22/19 metformin 1,000 mg PO BID 03/12/15 01/22/19 riboflavin (vitamin B2) [Vitamin 100 mg PO DAILY 03/13/15 01/22/19 B-2] metoprolol succinate 125 mg PO DAILY #225 tab-cap 07/02/15 01/22/19 Januvia 50 mg PO DAILY 03/05/17 01/22/19 levothyroxine [Synthroid] 25 mcg PO DAILY 03/05/17 01/22/19 magnesium oxide 400 mg PO BID 03/05/17 01/22/19 nortriptyline 20 mg PO HS 03/05/17 01/22/19 ondansetron HCl 4 mg PO Q8H PRN 03/05/17 01/22/19 valacyclovir [Valtrex] 2 g PO Q12H PRN 03/05/17 01/22/19 Lyrica 75 mg PO .2-3 XDAY 03/06/17 01/22/19 vitamin L20-pwdpr acid 1 ea PO DAILY 03/11/17 01/22/19 aripiprazole [Abilify] 5 mg PO HS 01/22/19 01/22/19 exenatide microspheres [Bydureon] 01/22/19 ketorolac 10 mg PO DAILY PRN 01/22/19 01/22/19 Allergies Allergy/AdvReac Type Severity Reaction Status Date / Time Penicillins Allergy Severe throat Unverified 01/22/19 22:25 closes Sulfa (Sulfonamide Allergy Mild Hives Unverified 01/22/19 22:25 Antibiotics) General Stated Complaint: PsychEval RENATO: 2 Review of Systems Review of Systems Increased stressors. 6 systems reviewed and otherwise negative [facility] Medical History Anxiety (Chronic) CAD (coronary artery disease) (Chronic) Cardiomyopathy (Chronic) Carpal tunnel syndrome (Chronic) Chronic pain syndrome (Chronic) DUB (dysfunctional uterine bleeding) (Chronic) Depression (Chronic) Diabetes (Chronic) Fatty liver (Chronic) Frequent headaches (Chronic) Hepatomegaly (Chronic) Hyperlipidemia (Chronic) Lactose intolerance (Chronic) Morbid obesity (Chronic) Polycystic ovaries (Chronic) Splenomegaly (Chronic) Tachycardia (Chronic) Surgical History History of section (Inactive) Previous back surgery (Inactive) Social History Smoking and Tabacco status: Current every day Exam Narrative Exam Narrative: GEN: awake, alert, oriented 3. Pleasant, well groomed, interactive. HEAD: Normocephalic, atraumatic ENT: Mucous membranes moist, oropharynx unremarkable, External ear exam unremarkable EYES: PERRL, EOMI NECK: Full ROM, no AP, no menigismus CHEST/RESP: Nontender, clear to auscultation bilateral, no wheeze/rhonchi/rales CARDIOVASCULAR: RRR, no murmur, rub jessica. 2+ Rad pulse bilateral ABDOMEN: Soft, nontender, no mass. +Bowel sounds EXT: Full ROM, no edema, no rash Neuro: Grossly normal neurologic exam, conversant, interactive. Psych: Speech fluent, thoughts congruent, affect flat Course Vital Signs Pulse 91 H 01/22/19 22:25 Respiratory Rate 18 01/22/19 22:25 Blood Pressure 119/71 01/22/19 22:25 Pulse Oximetry 99 01/22/19 22:25 Pulse 91 H 01/22/19 22:25 Respiratory Rate 18 01/22/19 22:25 Respiratory Effort 01/22/19 22:25 Blood Pressure 119/71 01/22/19 22:25 Blood Pressure Position Sitting 01/22/19 22:25 Pulse Oximetry 99 01/22/19 22:25 Oxygen Delivery Method Room Air 01/22/19 22:25 Oxygen Flow Rate 0 01/22/19 22:25
[2019-01-22 22:58] LABS: Bilirubin Negative (Negative); Blood Large (Negative); Clarity Clear; Glucose Negative (Negative); Ketones Negative (Negative); Leukocyte Esterase Negative (Negative); Nitrite Negative (Negative); Urobilinogen 0.2 EU/dL (Up TO 0.2); pH 5.5 (5-8)
[2019-01-22 23:07] LABS: Abs Immature Grans 0.02 k/cumm (0.0-0.09); Absolute Basophil Count 0.04 k/cumm (0.0-0.2); Absolute Lymphocyte Count 3.73 k/cumm (1.2-3.4); Absolute Monocyte Count 0.48 k/cumm (0.11-0.7); Absolute Neutrophil Count 3.56 k/cumm (1.2-6.7); Basophils % 0.5; Eosinophils % 3.7; HCT 42.3 % (36.0-46.0); HGB 14.1 g/dL (12.0-15.5); Immature Grans % 0.2; Lymphocytes % 45.9; Mean Corp. HGB Concentration 33.3 g/dL (32.0-36.0); Mean Corpuscular Hemoglobin 30.4 pg (27.0-33.0); Mean Corpuscular Volume 91.2 fL (80-95); Mean Platelet Volume 11.1 fL (8.0-11.0); Monocytes % 5.9; Neutrophils % 43.8; Platelet Count 190 x1000/uL (130-400); RBC 4.64 m/cumm (4.00-5.20); RBC Distribution Width 15.2 % (11.7-14.6); White Blood Cell Count 8.13 k/cumm (4.4-10.8)
[2019-01-22 23:07] LABS: Bacteria Few HPF (Negative); C & S Indicated? No; Casts Negative LPF (Negative); Crystals Negative HPF (Negative); Epithelial Cells Many HPF (Negative); Mucus Negative (Negative); WBC 0-2 HPF (0-5)
[2019-01-22 23:13] LABS: *AMPHETAMINES SCREEN URINE Negative (Negative); *BARBITURATES SCREEN URINE Negative (Negative); *BENZODIAZEPINES SCREEN URINE POSITIVE (Negative); Cannabinoids THC Negative (Negative); Cocaine Screen,Urine Negative (Negative); METHADONE URINE SCREEN Negative (Negative); OPIATES URINE SCREEN POSITIVE (Negative)
[2019-01-22 23:14] LABS: Tricyclic Antidepressants POSITIVE (Negative)
[2019-01-22 23:26] LABS: ALT 28 U/L (12-78); AST 22 U/L (15-37); Albumin 3.7 g/dL (3.4-5.0); Alkaline Phosphatase 47 U/L (46-116); Anion Gap 6.3 mmol/L (3-11); BUN 20 mg/dL (7-18); Bilirubin, Total 0.4 mg/dL (0.2-1.0); CO2 32.7 mmol/L (21.0-32.0); CREATININE 1.03 mg/dL (0.55-1.02); Calcium 8.9 mg/dL (8.5-10.1); Chloride 100 mmol/L (98-107); Estimated GFR 58.48 (mL/min/1.73m2); Glucose 71 mg/dL (70-100); Sodium 139 mmol/L (136-145); TSH 1.08 uIU/mL (0.358-3.74); Total Protein 7.3 g/dL (6.4-8.2)
[2019-01-22 23:28] LABS: ETHANOL BLOOD < 3.0 mg/dL (<3)
--- NOTE | 2019-01-22 23:35 | NUR.NOTE ---
Nursing Note: Pt sitting on stretcher, direct observation 1:1 CPSO. Son in room. Pt crying, provided with tissues. Calm and appropriate, sad.
[2019-01-22 23:39] LABS: Acetaminophen < 2 ug/mL (10-30); Salicylate 4.5 mg/dL (2.8-20.0)
--- NOTE | 2019-01-22 23:49 | NUR.NOTE ---
Addendum entered by Edith Arrieta 01/23/19 01:00: Given larger size blue pants per pt request. Family presence facilitated by mental health and this nurse. Original Note: Nursing Note: Reviewed meds with pt again- she would like her medications for nighttime, which she states she has not had. MD aware and will order these medications.
--- NOTE | 2019-01-22 23:55 | PDOC.MHCN ---
Date of service: 01/23/19 Mental Health Crisis Note Presenting Issue How did you arrive at the ED and why did you come: Jose arrived coby to the ED via [facility] after a call was placed to [facility] for a welfare check as Jammie had messaged her niece that she loved her. Before Police completely left Jammie's ex found a suicide letter on her bed and Jammie's son stopped police before they pulled out of the yard. It was [facility] who found Jammie after she was picked up by her son in [place]. Jammie's mother is buried in [place] and Jammie said I just wanted to be with her and I couldn't stop myself. She said I haven't been happy but have been putting on a show. In the past month since her last hospital stay she reports that she has had symptoms supporting danna and depression. She reported that she wanted to leave the note to make sure her kids knew that they were not the reason and that she loved them. She attributes her children's change in demeanor to her ex 's brain surgery in April and not thinking that any of her choices have contributed to their stress and mental fragility. When asked about what would happen to her youngest daughter if her ex is unable to care for her and she stated that she thought that the friend and her son would care for her. A discussion was had regarding the possibility of DCF getting involved instead. Jammie has been following her treatment recommendations she said and stated that her ELEVATOR RUNNER, Serene Cunningham (unsure of spelling) has been tweeking her Abilify that she was started on when she was hospitalized. She said her ELEVATOR RUNNER also started her on a mood stabilizer but does not recall the name as well as Valium for sleep. She has been seeing her counselor Karuna Garcia as scheduled and saw her last on . As well she has continued seeing her PCP, Dr. Phan and sees her again this . Precipitating Factors Jammie denied SI at this time. She said that she does not want to she wants to go to the Care Bed where she feels she will get the treatment and support she needs. Disposition BEHAVIOR: Cooperative and planful EYE CONTACT: Good although she appears very tired. MOOD: Depressed and withdrawn AFFECT: flat APPETITE: Pt reported that this has decreased. SLEEP(trouble falling/staying asleep: Pt reported that the past couple of days has been choppy but will use her Valium if needed. Plan This clinician requested a small huddle with the Dr and Nursing sales department supervisor to discuss the concerns and strengths Jammie has shown in the recent past. I explained my concerns of her state of mind tonight that was so bad she wrote a SI letter to her children and sent messages saying goodbye to other loved ones. I expressed her lack of insight as to how her behaviors have impacted her young adult children's lives and how tonight could have turned out much worse thus far. I discussed the worries of her children as they worry about losing their mother. I also shared her son, Micheal's recommendation to support his mother until she is able to go to the Care Bed. we discussed Jammie's willingness to engage in treatment and follow through to date. All of this was taken into account as we agreed that based on Jammie's hx of follow through we would agree to a very specific plan. I typed this up (see below) and Dr. Shah agreed to this plan. The following plan was put in place tonight for Jammie. Safety Plan for Jammie Gottlieb 75 Today?s Date: 01/23/19 I Jammie Gottlieb agree to the following safety plan and understand that if I do not comply with this plan that Law Enforcement will be called and I will be brought back to [facility] for evaluation and hospitalization. This plan stays in effect until Jammie is successfully placed at [facility]. Jammie 1. Will not have access to her or anyone else?s motor vehicle until her treatment team feel it is safe for her to do so and NOT before her placement at the [facility] Care Bed. 2. Will submit all of her medications over to her son who will administer the meds as prescribed on the bottle unless otherwise directed by a medical provider. 3. Will leave all doors open enough so that others can check on her if needed to ensure safety. 4. Will call [facility] 3 times a day to check in and report how she is doing. She will do this in proximity to her family in case the clinician wants to check in with them as well. Micheal: 1. Will lock up all over the counter medications as well as Jammie?s medications to ensure Jammie does not have access to them. He also agrees to administer her meds as prescribed. Should he have questions about how they are to be administered he is to call Jammie?s prescriber of that medication or the PCP office?s after hours line if the clinic is closed for directions on how to do so. 2. Will lock up all of the vehicle keys so that Jamime does not have access to them. 3. Will call 1 or [facility] at [phone] if Jammie is not complying with this plan. Signed this day of January, JammieGermaniaey and my self signed this plan and Jammie's ex witnessed the plan for us. Provisional Diagnosis Depressive d/o nos Signature Clinician's Name/Title: Zoila Muniz MS, [facility] Emergency Services Clinician
[2019-01-23] MEDS: Metoprolol 12.5 MG TAB 125 MG PO (00:45)
[2019-01-23] MEDS: HYDROmorphone 4 MG TAB PO (00:46)
[2019-01-23] MEDS: Lisinopril 10 MG TAB PO (00:47)
[2019-01-23] MEDS: PARoxetine 20 MG TAB 60 MG PO (00:47)
[2019-01-23] MEDS: Levothyroxine 25 MCG TAB PO (00:48)
[2019-01-23] MEDS: ARIPiprazole 5 MG TAB 7 MG PO (00:49)
[2019-01-23] MEDS: glipiZIDE 10 MG TAB PO (00:49)
[2019-01-23] MEDS: Rosuvastatin 10 MG TAB PO (00:49)
[2019-01-23] MEDS: Nortriptyline 10 MG CAP 20 MG PO (00:49)
[2019-01-23 01:43] VITALS: BP 114/78; PULSE 67; RESP 16; O2SAT 97
--- NOTE | 2019-01-23 02:16 | PDOC.MHCN_ITS ---
Date of service: 01/23/19 Mental Health Crisis Note Presenting Issue How did you arrive at the ED and why did you come: Jose arrived coby to the ED via [facility] after a call was placed to [facility] for a welfare check as Jammie had messaged her niece that she loved her. Before Police completely left Jammie's ex found a suicide letter on her bed and Jammie's son stopped police before they pulled out of the yard. It was [facility] who found Jammie after she was picked up by her son in [place]. Jammie's mother is buried in [place] and Jammie said I just wanted to be with her and I couldn't stop myself. She said I haven't been happy but have been putting on a show. In the past month since her last hospital stay she reports that she has had symptoms supporting danna and depression. She reported that she wanted to leave the note to make sure her kids knew that they were not the reason and that she loved them. She attributes her children's change in demeanor to her ex 's brain surgery in April and not thinking that any of her choices have contributed to their stress and mental fragility. When asked about what would happen to her youngest daughter if her ex is unable to care for her and she stated that she thought that the friend and her son would care for her. A discussion was had regarding the possibility of DCF getting involved instead. Jammie has been following her treatment recommendations she said and stated that her MACHINE ADJUSTER, Serene Cunningham (unsure of spelling) has been tweeking her Abilify that she was started on when she was hospitalized. She said her MACHINE ADJUSTER also started her on a mood stabilizer but does not recall the name as well as Valium for sleep. She has been seeing her counselor Karuna Garcia as scheduled and saw her last on . As well she has continued seeing her PCP, Dr. Phan and sees her again this . Precipitating Factors Jammie denied SI at this time. She said that she does not want to she wants to go to the Care Bed where she feels she will get the treatment and support she needs. Disposition BEHAVIOR: Cooperative and planful EYE CONTACT: Good although she appears very tired. MOOD: Depressed and withdrawn AFFECT: flat APPETITE: Pt reported that this has decreased. SLEEP(trouble falling/staying asleep: Pt reported that the past couple of days has been choppy but will use her Valium if needed. Plan This clinician requested a small huddle with the Dr and Nursing transmitter supervisor to discuss the concerns and strengths Jammie has shown in the recent past. I explained my concerns of her state of mind tonight that was so bad she wrote a SI letter to her children and sent messages saying goodbye to other loved ones. I expressed her lack of insight as to how her behaviors have impacted her young adult children's lives and how tonight could have turned out much worse thus f ar. I discussed the worries of her children as they worry about losing their mother. I also shared her son, Micheal's recommendation to support his mother until she is able to go to the Care Bed. we discussed Jammie's willingness to engage in treatment and follow through to date. All of this was taken into account as we agreed that based on Jammie's hx of follow through we would agree to a very specific plan. I typed this up (see below) and Dr. Shah agreed to this plan. The following plan was put in place tonight for Jammie. Safety Plan for Jammie Gottlieb 75 Today?s Date: 01/23/19 I Jammie Gottlieb agree to the following safety plan and understand that if I do not comply with this plan that Law Enforcement will be called and I will be brought back to [facility] for evaluation and hospitalization. This plan stays in effect until Jammie is successfully placed at [facility]. Jammie 1. Will not have access to her or anyone else?s motor vehicle until her treatment team feel it is safe for her to do so and NOT before her placement at the [facility] Care Bed. 2. Will submit all of her medications over to her son who will administer the meds as prescribed on the bottle unless otherwise directed by a medical provider. 3. Will leave all doors open enough so that others can check on her if needed to ensure safety. 4. Will call [facility] 3 times a day to check in and report how she is doing. She will do this in proximity to her family in case the clinician wants to check in with them as well. Micheal: 1. Will lock up all over the counter medications as well as Jammie?s medications to ensure Jammie does not have access to them. He also agrees to administer her meds as prescribed. Should he have questions about how they are to be administered he is to call Jammie?s prescriber of that medication or the PCP office?s after hours line if the clinic is closed for directions on how to do so. 2. Will lock up all of the vehicle keys so that Jammie does not have access to them. 3. Will call [facility] or [facility] at [phone] if Jammie is not complying with this plan. Signed this day January, JammieGermaniaey and my self signed this plan and Jammie's ex witnessed the plan for us. Provisional Diagnosis Depressive d/o nos Signature Clinician's Name/Title: Zoila Muniz MS, [facility] Emergency Services Clinician
== END 2019-01-23 01:55 | disposition home or self-care (01) ==
PROVIDERS: Emergency Provider Emergency Medicine; PCP Family Medicine
DX: F41.8 Other specified anxiety disorders (principal); R45.851 Suicidal ideations; E11.9 Type 2 diabetes mellitus without complications; Z79.84 Long term (current) use of oral hypoglycemic drugs
CPT/HCPCS: 36415; 80053; 80307; 81025; 99285; 80320; 80329; 81003; 81015; 84443; 85025; 93226; 99283; J3490

== ENCOUNTER 2019-01-23 07:44 | Outpatient (CLI) | payer MEDICARE, MEDICAID, SELFPAY | END 2019-01-23 08:04 | PROVIDERS: PCP Family Medicine; Visit Provider Family Medicine | DX: R00.2 Palpitations (principal); I49.1 Atrial premature depolarization | CPT/HCPCS: 93226 ==

== ENCOUNTER 2019-01-24 09:15 | Outpatient (CLI) | payer MEDICARE, MEDICAID, SELFPAY | END 2019-01-24 09:35 | PROVIDERS: PCP Family Medicine; Referring Provider Family Medicine; Visit Provider Internal Medicine Interventional Cardiology | DX: R00.2 Palpitations (principal); I49.1 Atrial premature depolarization | CPT/HCPCS: 93227 ==

== ENCOUNTER 2019-01-27 00:46 | Outpatient (CLI) | payer MEDICARE, MEDICAID, SELFPAY ==
--- NOTE | 2019-01-27 13:40 | MERGE_ITS ---
*[facility]* *[facility]* [address] [place] [address] Date of study: 01/27/2019 Transthoracic Echocardiography M-mode, complete 2D, complete spectral Doppler, and color Doppler *STUDY CONCLUSIONS* Impressions: Compared to the prior study, there has been no significant interval change. Summary: 1. Left ventricle: The cavity size was normal. Wall thickness was increased in a pattern of mild LVH. Systolic function was at the lower limits of normal. The estimated ejection fraction was 50-55%. Wall motion was normal; there were no regional wall motion abnormalities. 2. Mitral valve: There was mild regurgitation. 3. Right ventricle: The cavity size was normal. Wall thickness was normal. Systolic function was normal. *PATIENT PRESENTATION* Height: 162.6cm ((64in) ) S/D Pressure: 83 / 56 Weight: 103.4kg ((227.5lb) ) BSA: 2.21m^2 Test start time: 01:54 PM. Test stop time: 02:55 PM. ORDERING Edie Ellis REFERRING Edie Ellis PERFORMING Unknown PERFORMING [facility] WORKERS COMPENSATION CLAIMS EXAMINER RT Delia Rose)JORGE)ZAN *PROCEDURE DATA* Procedure information: The patient was identified by two identifiers. This study was interpreted by [facility]. Pertinent images and digital data are archived for permanent storage and are available for subsequent review. Comparison was made to the study of 03/31/2016. Study status: Routine. Transthoracic echocardiography. M-mode, complete 2D, complete spectral Doppler, and color Doppler. A Transthoracic Echocardiogram was performed. Scanning was performed from the parasternal, apical, subcostal, and suprasternal notch acoustic windows. Images were obtained using an [id number] cardiac ultrasound machine. Image quality was poor. The study was technically limited due to body habitus. Study completion: The patient tolerated the procedure well. History: PMH: Cardiomyopathy. LVEF 40% 07/2013, 55%2013, 50-55% 2015, i42.9 *CARDIAC ANATOMY* Left ventricle: The cavity size was normal. Wall thickness was increased in a pattern of mild LVH. Systolic function was at the lower limits of normal. The estimated ejection fraction was 50-55%. Wall motion was normal; there were no regional wall motion abnormalities. Aortic valve: Trileaflet; normal thickness leaflets. Mobility was not restricted. Doppler: Transvalvular velocity was within the normal range. There was no stenosis. There was no significant regurgitation. VTI ratio of LVOT to aortic valve: 0.86. Valve area (VTI): 2.6cm^2. Indexed valve area (VTI): 1.2cm^2/m^2. Peak velocity ratio of LVOT to aortic valve: 0.74. Valve area (Vmax): 2.3cm^2. Indexed valve area (Vmax): 1cm^2/m^2. Mean velocity ratio of LVOT to aortic valve: 0.86. Valve area (Vmean): 2.6cm^2. Indexed valve area (Vmean): 1.2cm^2/m^2. Mean gradient (S): 3.4mm Hg. Peak gradient (S): 6.9mm Hg. Aorta: Aortic root: The aortic root was normal in size. Ascending aorta: The ascending aorta was normal in size. Mitral valve: Mildly thickened leaflets. Mobility was not restricted. Doppler: Transvalvular velocity was within the normal range. There was no evidence for stenosis. There was mild regurgitation. Valve area by pressure half-time: 4cm^2. Indexed valve area by pressure half-time: 1.8cm^2/m^2. Peak gradient (D): 5mm Hg. Left atrium: The atrium was normal in size. Right ventricle: The cavity size was normal. Wall thickness was normal. Systolic function was normal. Pulmonic valve: Poorly visualized. Doppler: Transvalvular velocity was within the normal range. There was no evidence for stenosis. There was no significant regurgitation. Peak gradient (S): 5.3mm Hg. Tricuspid valve: Structurally normal valve. Doppler: Transvalvular velocity was within the normal range. There was no evidence for stenosis. There was trivial regurgitation. Pulmonary artery: Poorly visualized. Pulmonary systolic pressure was within the normal range. Right atrium: The atrium was normal in size. Pericardium: There was no pericardial effusion. Systemic veins: Inferior vena cava: Well visualized. The vessel was patent and normal in size. The respirophasic diameter changes were in the normal range (greater than or equal to 50%). Baseline ECG: Normal sinus rhythm. Measurements Left ventricle Value Reference LV ID, ED, PLAX 4.9 cm 3.5 - 6.0 LV ID, ES, PLAX 3.6 cm 2.1 - 4.0 LV PW thickness, ED, PLAX 1.0 cm LV end-diastolic volume, 1-p A2C 88 ml LV ejection fraction, 1-p A2C 56 % LV end-diastolic volume, 1-p A4C 84 ml LV ejection fraction, 1-p A4C 51 % LV e', lateral 0.137 m/sec LV E/e', lateral 8 LV e', medial 0.105 m/sec LV E/e', medial 11 LV e', average 0.121 m/sec LV E/e', average 9 Ventricular septum Value Reference IVS thickness, ED, PLAX 0.9 cm LVOT Value Reference LVOT ID, A-P 2.0 cm LVOT area 3 cm^2 LVOT peak velocity, S 0.97 m/sec LVOT mean velocity, S 0.75 m/sec LVOT VTI, S 21.5 cm LVOT peak gradient, S 3.8 mm Hg LVOT mean gradient, S 2.5 mm Hg Stroke volume (SV), LVOT DP 65 ml Stroke index (SV/bsa), LVOT DP 30 ml/m^2 Aortic valve Value Reference Aortic valve peak velocity, S 1.3 m/sec Aortic valve mean velocity, S 0.88 m/sec Aortic valve VTI, S 25.0 cm Aortic mean gradient, S 3.4 mm Hg Aortic peak gradient, S 6.9 mm Hg VTI ratio, LVOT/AV 0.86 Aortic valve area, VTI 2.6 cm^2 Velocity ratio, peak, LVOT/AV 0.74 Aortic valve area, peak velocity 2.3 cm^2 Velocity ratio, mean, LVOT/AV 0.86 Aortic valve area, mean velocity 2.6 cm^2 Aortic valve area/bsa, mean velocity 1.2 cm^2/m^2 Aorta Value Reference Aortic root ID, ED 2.7 cm Ascending aorta ID, A-P, S 2.9 cm Left atrium Value Reference LA ID, A-P, ES 3.6 cm LA ID/bsa, A-P 1.6 cm/m^2 <=2.2 LA area, ES, A4C 17 cm^2 8.8 - 23.4 LA area, ES, A2C 18 cm^2 LA volume/bsa, ES, 1-p A4C 24 ml/m^2 LA volume, ES, 2-p 53 ml LA volume/bsa, ES, 2-p 24 ml/m^2 LA/aortic root ratio 1.31 Mitral valve Value Reference Mitral E-wave peak velocity 1.12 m/sec Mitral A-wave peak velocity 0.83 m/sec Mitral deceleration time 189 ms 150 - 230 Mitral pressure half-time 55 ms Mitral peak gradient, D 5 mm Hg Mitral E/A ratio, peak 1.35 Mitral valve area, PHT, DP 4 cm^2 Pulmonary veins Value Reference Pulmonary vein peak velocity, S 0.52 m/sec Pulmonary vein peak velocity, D 0.39 m/sec Pulmonary vein velocity ratio, peak, 1.33 S/D Pulmonary arteries Value Reference PA pressure, S, DP 23 mm Hg <=30 Tricuspid valve Value Reference Tricuspid regurg peak velocity 2.1 m/sec Tricuspid peak RV-RA gradient 18.3 mm Hg Right atrium Value Reference RA area, ES, A4C 13.6 cm^2 8.3 - 19.5 Systemic veins Value Reference Estimated CVP 10 mm Hg Right ventricle Value Reference RV pressure, S, DP 28 mm Hg <=30 Pulmonic valve Value Reference Pulmonic peak gradient, S 5.3 mm Hg Legend: (L) and (H) chase values outside specified reference range. I have personally reviewed the images and have reviewed and edited the reported findings. Electronically signed by Evie Hill 01/27/2019 19:36
== END 2019-01-27 01:06 ==
PROVIDERS: PCP Family Medicine; Visit Provider Family Medicine
DX: I42.9 Cardiomyopathy, unspecified (principal); R00.2 Palpitations; I34.0 Nonrheumatic mitral (valve) insufficiency
CPT/HCPCS: 93306

== ENCOUNTER 2019-02-03 08:47 | Inpatient (IN) | payer MEDICARE, MEDICAID, SELFPAY ==
[2019-02-03] VITALS (97 sets, daily range): BP systolic 54–126; BP diastolic 32–105; PULSE 91–143; RESP 11–26; TEMP 36.5–37.1; O2SAT 81–100
[2019-02-03] MEDS: Normal Saline 1,000 ML 2000 ML IV (09:00)
--- NOTE | 2019-02-03 09:00 | DI.CT_ITS ---
SYMPTOM/DIAGNOSIS: DROWSY, SLURRED SPEECH, R/O CVA CT BRAIN: Noncontrast examination. Comparison is 09/13/[address] was performed. The ventricular system is normal in appearance. There is no evidence of an intracranial mass lesion. There is no evidence of a subdural or epidural hematoma. No focal areas of decreased attenuation are seen. CONCLUSION: Normal noncontrast Cranial CT. The findings were discussed with the Emergency Department on the date of the examination.
--- NOTE | 2019-02-03 09:04 | DI.RAD_ITS ---
SYMPTOM/DIAGNOSIS: WEAKNESS, SOB, HYPOXIA, R/O ACUTE DISEASE CHEST X-RAY: Frontal and lateral views. Comparison 07/04/16. The lateral view is suboptimal due to patient motion artifact. There is poor inspiration. Cardiac silhouette is within normal limits as is the pulmonary vasculature. Increased lung markings are seen in the right base and a developing pneumonia or atelectasis cannot be excluded. The left lung is clear. No effusion or pneumothorax is identified. The bones show no acute abnormality. IMPRESSION: 1. Question of a right basilar infiltrate. This may represent atelectasis or pneumonia. 2. Suboptimal lateral view due to patient motion artifact.
[2019-02-03 09:11] LABS: BE 4.7 mmol/L (-3-3); HCO3 29 mmol/L (22-28); pCO2 45 mmHg (34-47); pH 7.42 (7.35-7.45); pO2 76 mmHg (83-108); sO2 95 % (94-98); tCO2 26 mmol/L (22-29)
--- NOTE | 2019-02-03 09:11 | ED.GENADUL_ITS ---
Discharge Plan Disposition Patient Disposition: [facility] INPATIENT Condition: Good Discharge Details Chief Complaint: AMS/LOC Clinical Impression: Sepsis, Pneumonia, Altered mental status, Sedated due to multiple medications, Dehydration Reason For Visit: SEPSIS,PNEUMONIA,HYPOTENSION,AMS,POLYMIA Admit Date/Time: 02/03/19 11:40 Admit Provider: Taurus Davis Attending Provider: Taurus Davis Primary Care Provider: Edie Ellis ED Provider: Kiley Collado Hospital Course Hospital Course: This is a 43-year-old woman who presented to an [facility] on 01/23/2019 with suicidal ideation and was transferred to the [facility] care bed for further monitoring. About 24 hours prior to admission she became confused and was slurring her words. Caregivers noted on the morning of admission she felt drugged and was slurring her words. She agreed to go to the emergency room. In the emergency room initial O2 sat was 83%, she was short of breath and drowsy. She dropped her blood pressure and required fluid resuscitation. Chest x-ray showed a questionable right lower lobe pneumonia. She was started on IV Levaquin and IV fluids and admitted to the ICU. New Quite rapidly she improved to her baseline level of functioning. Her creatinine which had bumped to 1.75 came down to 0.78. Her urine output was adequate, blood pressure had stabilized. Hemoglobin A1c level 6.8%, white blood cell count 7.94, hemoglobin 10.8 hematocrit 34.1. Blood sugar 147. She was back to her baseline level of functioning. She was somewhat anxious and overwhelmed. She denied any suicidality. Mental health came to evaluate and the plan is to return to the care of bed. She is medically cleared to return to the care bed. Her lung exam was completely clear. With resolution of the leukocytosis antibiotics were discontinued. It was felt the patient did not have pneumonia. Furosemide and spironolactone were discontinued this admission. Discharge Instructions Instructions: Dehydration (DC) Discharge Data Discharge Date/Time-TO BE ENTERED AT DEPARTURE: 02/03/19 13:24 Medical Decision Making 43yo F w/ multiple medical problems including atrial fibrillation, diabetes, hypertension, hyperlipidemia, CVA, IA, cardiomyopathy who presents for drowsiness and generalized weakness for the past few days and difficulty breathing this morning. Vitals within normal limits per EMS. Glucose 230s per EMS. Patient arrived to ED extremely drowsy but oriented x3 and able to answer questions. O2 sat 84% on room air. She is diaphoretic. Patient's medication list includes Dilaudid, diazepam, Compazine, clonazepam, and multiple other sedating medications. She denies any alcohol or drug use. EKG notes a rate of 106, sinus tachycardia, no acute ST findings. QTc 467. QRS 84. Differential diagnosis includes medication overdose, CVA, IA, PE, pneumonia, electrolyte abnormality. Fluids, labs, ABG, UDS, salicylate, Tylenol, stat CT head, chest x-ray. 0945 --patient back from CT and hypotensive, systolic with 70s in radiology, systolic not 84. She is significantly drowsy. CT head negative. Will give a small dose of Narcan. Blood culture and lactate added. 1045 --labs and imaging reviewed. White blood cell count 17. Hemoglobin 13. Creatinine 1.41. GFR 31. D-dimer 694. Lactate 1.2. Troponin negative. BNP 375. TSH normal at 1.45. Urinalysis negative for infection, notes opiates, TCAs and benzos which patient is taking. Chest x-ray notes a questionable right basilar infiltrate. With patient's leukocytosis, hypoxia and complaint of difficulty breathing, will treat for pneumonia. She has an allergy to penicillin. Will give Levaquin. BP improving, systolic 110s. Patient stick with a drowsy but arousable and able to answer questions. She was given 4 doses of 0.4 mg Narcan without any response. 1100 --repeat BMP obtained to reassess creatinine and GFR to see if able to obtain a CT chest to rule out PE but still with low GFR, 39. I suspect domenico ochoa's symptoms are likely due to her pneumonia and probably medication overdose, so we will hold on CT chest at this time. I suspect that patient is extremely sedated due to her multiple sedating medications in association with significant dehydration. 1120 --discussed with hospitalist - accepts patient for admission. Medical Records Medical records reviewed: Yes I reviewed the patient's medical records. Imaging Data Radiologic Study: Radiologist's impression: CHEST X-RAY: Frontal and lateral views. Comparison 07/04/16. The lateral view is suboptimal due to patient motion artifact. There is poor inspiration. Cardiac silhouette is within normal limits as is the pulmonary vasculature. Increased lung markings are seen in the right base and a developing pneumonia or atelectasis cannot be excluded. The left lung is clear. No effusion or pneumothorax is identified. The bones show no acute abnormality. IMPRESSION: 1. Question of a right basilar infiltrate. This may represent atelectasis or pneumonia. 2. Suboptimal lateral view due to patient motion artifact. CT BRAIN: Noncontrast examination. Comparison is 09/13/[address] was performed. The ventricular system is normal in appearance. There is no evidence of an intracranial mass lesion. There is no evidence of a subdural or epidural hematoma. No focal areas of decreased attenuation are seen. CONCLUSION: Normal noncontrast Cranial CT. Lab Data Lab results reviewed: Yes I reviewed the patient's lab results. Abnormal Labs 02/03/19 02/03/19 02/03/19 09:00 09:00 09:00 WBC 17.49 H RDW 15.1 H MPV 11.5 H Absolute Neutrophils 10.67 H Absolute Lymphocytes 5.07 H Absolute Monocytes 1.22 H D-Dimer 694 H pO2 ABG HCO3 ABG Base Excess BUN 34 H Creatinine 1.75 H Glucose 228 H Calcium AST 43 H NT-Pro-B Natriuret Pep 375 H Albumin 3.3 L Urine Ketones Acetaminophen 02/03/19 02/03/19 02/03/19 09:00 09:07 09:50 WBC RDW MPV Absolute Neutrophils Absolute Lymphocytes Absolute Monocytes D-Dimer pO2 76 L ABG HCO3 29 H ABG Base Excess 4.7 H BUN Creatinine Glucose Calcium AST NT-Pro-B Natriuret Pep Albumin Urine Ketones Trace H Acetaminophen < 2 L 02/03/19 10:57 WBC RDW MPV Absolute Neutrophils Absolute Lymphocytes Absolute Monocytes D-Dimer pO2 ABG HCO3 ABG Base Excess BUN 32 H Creatinine 1.45 H Glucose 187 H Calcium 8.2 L AST NT-Pro-B Natriuret Pep Albumin Urine Ketones Acetaminophen 02/03/19 10:15 Blood Blood Culture - Pending 02/03/19 10:30 Blood Blood Culture - Pending Laboratory Tests Range/Units 02/03/19 02/03/19 02/03/19 09:00 09:00 09:00 WBC (4.4-10.8) k/cumm 17.49 H RBC (4.00-5.20) m/cumm 4.30 Hgb (12.0-15.5) g/dL 13.2 Hct (36.0-46.0) % 40.7 MCV (80-95) fL 94.7 MCH (27.0-33.0) pg 30.7 MCHC (32.0-36.0) g/dL 32.4 RDW (11.7-14.6) % 15.1 H Plt Count (130-400) x1000/uL 247 MPV (8.0-11.0) fL 11.5 H Immature Gran % See Differential Neutrophils % 61.0 Lymphocytes % 20.0 Atypical Lymphs % 9 Monocytes % 7.0 Eosinophils % 3.0 Basophils % 0.0 Absolute Neutrophils (1.2-6.7) k/cumm 10.67 H Absolute Lymphocytes (1.2-3.4) k/cumm 5.07 H Absolute Monocytes (0.11-0.7) k/cumm 1.22 H Absolute Eosinophils (0.0-0.7) k/cumm 0.52 Absolute Basophils (0.0-0.2) k/cumm 0.00 Differential Comment N RBC Morphology Normal PT (9.3-11.0) sec 9.9 INR (0.9-1.1) 1.0 APTT (21.0-31.4) sec 22.8 D-Dimer (<500) ng/mlFEU 694 H Sample Site pCO2 (34-47) mmHg pO2 (83-108) mmHg O2 Saturation (94-98) % ABG pH (7.35-7.45) ABG HCO3 (22-28) mmol/L ABG Total CO2 (22-29) mmol/L ABG Base Excess (-3-3) mmol/L Oxygen Liter Flow L FiO2 % Sodium (136-145) mmol/L 139 Potassium (3.5-5.1) mmol/L 4.8 Chloride (98-107) mmol/L 101 Carbon Dioxide (21.0-32.0) mmol/L 30.4 Anion Gap (3-11) mmol/L 7.6 BUN (7-18) mg/dL 34 H Creatinine (0.55-1.02) mg/dL 1.75 H Estimated GFR/1.73 m2 (mL/min/1.73m2) 31.72 Glucose (70-100) mg/dL 228 H Lactate (0.6-1.4) mmol/l Calcium (8.5-10.1) mg/dL 9.3 Magnesium (1.8-2.4) mg/dL 2.3 Total Bilirubin (0.2-1.0) mg/dL 0.5 AST (15-37) U/L 43 H ALT (12-78) U/L 25 Alkaline Phosphatase (46-116) U/L 66 Troponin I (0.00-0.06) ng/mL < 0.02 NT-Pro-B Natriuret Pep ( - 299) pg/mL 375 H Total Protein (6.4-8.2) g/dL 6.9 Albumin (3.4-5.0) g/dL 3.3 L Lipase (73-393) U/L 77 TSH (0.358-3.74) uIU/mL Urine Color (Yellow) Urine Clarity Urine pH (5-8) Ur Specific Elma (1.005-1.025) Urine Protein (Negative) mg/dL Urine Ketones (Negative) mg/dL Urine Blood (Negative) Urine Nitrite (Negative) Urine Bilirubin (Negative) Urine Urobilinogen (Up TO 0.2) EU/dL Ur Leukocyte Esterase (Negative) Urine Glucose (Negative) mg/dL Salicylates (2.8-20.0) mg/dL Urine Opiates Screen (Negative) Urine Methadone Screen (Negative) Acetaminophen (10-30) ug/mL Ur Barbiturates Screen (Negative) Ur Tricyclics Screen (Negative) Ur Amphetamines Screen (Negative) U Benzodiazepines Scrn (Negative) Urine Cocaine Screen (Negative) Ur THC Screen (Negative) Range/Units 02/03/19 02/03/19 02/03/19 09:00 09:00 09:07 WBC (4.4-10.8) k/cumm RBC (4.00-5.20) m/cumm Hgb (12.0-15.5) g/dL Hct (36.0-46.0) % MCV (80-95) fL MCH (27.0-33.0) pg MCHC (32.0-36.0) g/dL RDW (11.7-14.6) % Plt Count (130-400) x1000/uL MPV (8.0-11.0) fL Immature Gran % Neutrophils % Lymphocytes % Atypical Lymphs % Monocytes % Eosinophils % Basophils % Absolute Neutrophils (1.2-6.7) k/cumm Absolute Lymphocytes (1.2-3.4) k/cumm Absolute Monocytes (0.11-0.7) k/cumm Absolute Eosinophils (0.0-0.7) k/cumm Absolute Basophils (0.0-0.2) k/cumm Differential Comment RBC Morphology PT (9.3-11.0) sec INR (0.9-1.1) APTT (21.0-31.4) sec D-Dimer (<500) ng/mlFEU Sample Site Left radial pCO2 (34-47) mmHg 45 pO2 (83-108) mmHg 76 L O2 Saturation (94-98) % 95 ABG pH (7.35-7.45) 7.42 ABG HCO3 (22-28) mmol/L 29 H ABG Total CO2 (22-29) mmol/L 26 ABG Base Excess (-3-3) mmol/L 4.7 H Oxygen Liter Flow L 3 FiO2 % Cannula Sodium (136-145) mmol/L Potassium (3.5-5.1) mmol/L Chloride (98-107) mmol/L Carbon Dioxide (21.0-32.0) mmol/L Anion Gap (3-11) mmol/L BUN (7-18) mg/dL Creatinine (0.55-1.02) mg/dL Estimated GFR/1.73 m2 (mL/min/1.73m2) Glucose (70-100) mg/dL Lactate (0.6-1.4) mmol/l Calcium (8.5-10.1) mg/dL Magnesium (1.8-2.4) mg/dL Total Bilirubin (0.2-1.0) mg/dL AST (15-37) U/L ALT (12-78) U/L Alkaline Phosphatase (46-116) U/L Troponin I (0.00-0.06) ng/mL NT-Pro-B Natriuret Pep ( - 299) pg/mL Total Protein (6.4-8.2) g/dL Albumin (3.4-5.0) g/dL Lipase (73-393) U/L TSH (0.358-3.74) uIU/mL 1.45 Urine Color (Yellow) Urine Clarity Urine pH (5-8) Ur Specific Elma (1.005-1.025) Urine Protein (Negative) mg/dL Urine Ketones (Negative) mg/dL Urine Blood (Negative) Urine Nitrite (Negative) Urine Bilirubin (Negative) Urine Urobilinogen (Up TO 0.2) EU/dL Ur Leukocyte Esterase (Negative) Urine Glucose (Negative) mg/dL Salicylates (2.8-20.0) mg/dL 3.6 Urine Opiates Screen (Negative) Urine Methadone Screen (Negative) Acetaminophen (10-30) ug/mL < 2 L Ur Barbiturates Screen (Negative) Ur Tricyclics Screen (Negative) Ur Amphetamines Screen (Negative) U Benzodiazepines Scrn (Negative) Urine Cocaine Screen (Negative) Ur THC Screen (Negative) Range/Units 02/03/19 02/03/19 02/03/19 09:45 09:50 09:50 WBC (4.4-10.8) k/cumm RBC (4.00-5.20) m/cumm Hgb (12.0-15.5) g/dL Hct (36.0-46.0) % MCV (80-95) fL MCH (27.0-33.0) pg MCHC (32.0-36.0) g/dL RDW (11.7-14.6) % Plt Count (130-400) x1000/uL MPV (8.0-11.0) fL Immature Gran % Neutrophils % Lymphocytes % Atypical Lymphs % Monocytes % Eosinophils % Basophils % Absolute Neutrophils (1.2-6.7) k/cumm Absolute Lymphocytes (1.2-3.4) k/cumm Absolute Monocytes (0.11-0.7) k/cumm Absolute Eosinophils (0.0-0.7) k/cumm Absolute Basophils (0.0-0.2) k/cumm Differential Comment RBC Morphology PT (9.3-11.0) sec INR (0.9-1.1) APTT (21.0-31.4) sec D-Dimer (<500) ng/mlFEU Sample Site pCO2 (34-47) mmHg pO2 (83-108) mmHg O2 Saturation (94-98) % ABG pH (7.35-7.45) ABG HCO3 (22-28) mmol/L ABG Total CO2 (22-29) mmol/L ABG Base Excess (-3-3) mmol/L Oxygen Liter Flow L FiO2 % Sodium (136-145) mmol/L Potassium (3.5-5.1) mmol/L Chloride (98-107) mmol/L Carbon Dioxide (21.0-32.0) mmol/L Anion Gap (3-11) mmol/L BUN (7-18) mg/dL Creatinine (0.55-1.02) mg/dL Estimated GFR/1.73 m2 (mL/min/1.73m2) Glucose (70-100) mg/dL Lactate (0.6-1.4) mmol/l 1.2 Calcium (8.5-10.1) mg/dL Magnesium (1.8-2.4) mg/dL Total Bilirubin (0.2-1.0) mg/dL AST (15-37) U/L ALT (12-78) U/L Alkaline Phosphatase (46-116) U/L Troponin I (0.00-0.06) ng/mL NT-Pro-B Natriuret Pep ( - 299) pg/mL Total Protein (6.4-8.2) g/dL Albumin (3.4-5.0) g/dL Lipase (73-393) U/L TSH (0.358-3.74) uIU/mL Urine Color (Yellow) Yellow Urine Clarity Sl cloudy Urine pH (5-8) 6.0 Ur Specific Elma (1.005-1.025) 1.015 Urine Protein (Negative) mg/dL Negative Urine Ketones (Negative) mg/dL Trace H Urine Blood (Negative) Negative Urine Nitrite (Negative) Negative Urine Bilirubin (Negative) Negative Urine Urobilinogen (Up TO 0.2) EU/dL 0.2 Ur Leukocyte Esterase (Negative) Negative Urine Glucose (Negative) mg/dL Negative Salicylates (2.8-20.0) mg/dL Urine Opiates Screen (Negative) Positive Urine Methadone Screen (Negative) Negative Acetaminophen (10-30) ug/mL Ur Barbiturates Screen (Negative) Negative Ur Tricyclics Screen (Negative) Positive Ur Amphetamines Screen (Negative) Negative U Benzodiazepines Scrn (Negative) Positive Urine Cocaine Screen (Negative) Negative Ur THC Screen (Negative) Negative Range/Units 02/03/19 10:57 WBC (4.4-10.8) k/cumm RBC (4.00-5.20) m/cumm Hgb (12.0-15.5) g/dL Hct (36.0-46.0) % MCV (80-95) fL MCH (27.0-33.0) pg MCHC (32.0-36.0) g/dL RDW (11.7-14.6) % Plt Count (130-400) x1000/uL MPV (8.0-11.0) fL Immature Gran % Neutrophils % Lymphocytes % Atypical Lymphs % Monocytes % Eosinophils % Basophils % Absolute Neutrophils (1.2-6.7) k/cumm Absolute Lymphocytes (1.2-3.4) k/cumm Absolute Monocytes (0.11-0.7) k/cumm Absolute Eosinophils (0.0-0.7) k/cumm Absolute Basophils (0.0-0.2) k/cumm Differential Comment RBC Morphology PT (9.3-11.0) sec INR (0.9-1.1) APTT (21.0-31.4) sec D-Dimer (<500) ng/mlFEU Sample Site pCO2 (34-47) mmHg pO2 (83-108) mmHg O2 Saturation (94-98) % ABG pH (7.35-7.45) ABG HCO3 (22-28) mmol/L ABG Total CO2 (22-29) mmol/L ABG Base Excess (-3-3) mmol/L Oxygen Liter Flow L FiO2 % Sodium (136-145) mmol/L 142 Potassium (3.5-5.1) mmol/L 4.6 Chloride (98-107) mmol/L 105 Carbon Dioxide (21.0-32.0) mmol/L 30.5 Anion Gap (3-11) mmol/L 6.5 BUN (7-18) mg/dL 32 H Creatinine (0.55-1.02) mg/dL 1.45 H Estimated GFR/1.73 m2 (mL/min/1.73m2) 39.41 Glucose (70-100) mg/dL 187 H Lactate (0.6-1.4) mmol/l Calcium (8.5-10.1) mg/dL 8.2 L Magnesium (1.8-2.4) mg/dL Total Bilirubin (0.2-1.0) mg/dL AST (15-37) U/L ALT (12-78) U/L Alkaline Phosphatase (46-116) U/L Troponin I (0.00-0.06) ng/mL NT-Pro-B Natriuret Pep ( - 299) pg/mL Total Protein (6.4-8.2) g/dL Albumin (3.4-5.0) g/dL Lipase (73-393) U/L TSH (0.358-3.74) uIU/mL Urine Color (Yellow) Urine Clarity Urine pH (5-8) Ur Specific [place]ma (1.005-1.025) Urine Protein (Negative) mg/dL Urine Ketones (Negative) mg/dL Urine Blood (Negative) Urine Nitrite (Negative) Urine Bilirubin (Negative) Urine Urobilinogen (Up TO 0.2) EU/dL Ur Leukocyte Esterase (Negative) Urine Glucose (Negative) mg/dL Salicylates (2.8-20.0) mg/dL Urine Opiates Screen (Negative) Urine Methadone Screen (Negative) Acetaminophen (10-30) ug/mL Ur Barbiturates Screen (Negative) Ur Tricyclics Screen (Negative) Ur Amphetamines Screen (Negative) U Benzodiazepines Scrn (Negative) Urine Cocaine Screen (Negative) Ur THC Screen (Negative) ECG Data Attestation: I personally reviewed and interpreted this ECG (s) as follows: Interpretation: Rate of 106, sinus tachycardia. No acute ST elevation or depression. QTc 467. QRS 84. T wave inversion in lead III, seen in previous EKG. HPI General Mode of arrival: EMS . Date/Time Provider Initiated Documentation: 02/03/19 08:59 . Limitations to Documentation: altered mental status . Information obtained by: patient . HPI Narrative: Patient is a 43-year-old female with a history of diabetes, atrial fibrillation, hypertension, hyperlipidemia, CVA, IA, cardiomyopathy, anxiety who presents for difficulty breathing and weakness from the care bed. EMS called for a patient at the care bed who is complaining of difficulty breathing. Upon their arrival, patient had complained of feeling weak. Upon arrival to ED, patient states that she has felt generally weak over the past several weeks, getting progressively worse. Patient has been at the care bed for the past 2 weeks for depression. She states she took her Dilaudid and diazepam last night. She takes clonazepam twice daily. She states she has not been eating or drinking much over the past 2 weeks. Related Data Home Medications Medication Instructions Recorded Confirmed clonazepam [Klonopin] 1 mg PO BID 06/28/13 02/03/19 hydromorphone [Dilaudid] 4 mg PO BID 06/28/13 02/03/19 paroxetine HCl [Paxil] 60 mg PO DAILY 06/28/13 02/03/19 rosuvastatin [Crestor] 10 mg PO QPM 06/28/13 02/03/19 albuterol sulfate 2 puff INHALATION Q4H PRN PRN 12/10/13 01/22/19 lisinopril 10 mg PO HS 12/10/13 02/03/19 naratriptan 2.5 mg PO Q2H PRN PRN 12/10/13 02/03/19 aspirin [Aspir-Low] 81 mg PO DAILY 01/25/14 02/03/19 glipizide 10 mg PO BID tab-cap 01/15/15 02/03/19 naproxen 500 mg PO BID tab-cap 01/15/15 02/03/19 metformin 1,000 mg PO BID 03/12/15 02/03/19 riboflavin (vitamin B2) [Vitamin 200 mg PO BID 03/13/15 02/03/19 B-2] metoprolol succinate 150 mg PO HS #225 tab-cap 07/02/15 02/03/19 Januvia 100 mg PO DAILY 03/05/17 02/03/19 levothyroxine [Synthroid] 50 mcg PO HS 03/05/17 02/03/19 magnesium oxide 800 mg PO BID 03/05/17 02/03/19 nortriptyline 20 mg PO HS 03/05/17 02/03/19 ondansetron HCl 4 mg PO Q8H PRN 03/05/17 02/03/19 Lyrica 100 mg PO TID 03/06/17 02/03/19 vitamin [id number] acid 1 ea PO DAILY 03/11/17 02/03/19 Bydureon 2 mg SUBCUT QWEEK 01/22/19 02/03/19 aripiprazole [Abilify] 10 mg PO HS 01/22/19 02/03/19 ketorolac 10 mg PO DAILY PRN 01/22/19 02/03/19 lamotrigine [Lamictal] 50 mg PO HS 02/03/19 02/03/19 Allergies Allergy/AdvReac Type Severity Reaction Status Date / Time Penicillins Allergy Severe throat Unverified 02/03/19 09:02 closes Sulfa (Sulfonamide Allergy Mild Hives Unverified 02/03/19 09:02 Antibiotics) General Stated Complaint: AMS/LOC RENATO: 2 Review of Systems Review of Systems All systems reviewed & are unremarkable except as noted in HPI and below Constitutional Reports as per HPI, Denies chills, Reports fatigue, Denies fever(s), Reports headache(s) and Reports poor appetite Eyes Denies blurry vision ENT Denies dizziness, Reports headache(s), Denies sore throat and Denies throat swelling Cardiovascular Denies chest pain and Reports dyspnea Respiratory Denies cough and Reports dyspnea Gastrointestinal Denies abdominal pain, Denies diarrhea and Denies vomiting Genitourinary Denies hematuria and Denies dysuria Musculoskeletal Denies back pain and Denies numbness Integumentary/Breasts Denies lesions and Denies rash Neurologic Denies dizziness, Reports headache(s), Denies focal weakness and Denies numbness Endocrine Reports fatigue Allergic/Immunologic Denies throat swelling [facility] Medical History Anxiety (Chronic) CAD (coronary artery disease) (Chronic) Cardiomyopathy (Chronic) Carpal tunnel syndrome (Chronic) Chronic pain syndrome (Chronic) DUB (dysfunctional uterine bleeding) (Chronic) Depression (Chronic) Diabetes (Chronic) Fatty liver (Chronic) Frequent headaches (Chronic) Hepatomegaly (Chronic) Hyperlipidemia (Chronic) Lactose intolerance (Chronic) Morbid obesity (Chronic) Polycystic ovaries (Chronic) Splenomegaly (Chronic) Tachycardia (Chronic) Surgical History History of section (Inactive) Previous back surgery (Inactive) Social History Smoking/Tobacco Use Status: Current every day Drug use: Never Do you feel safe in your relationship?: Yes Exam Const General: diaphoretic and lethargic Nutritional Appearance: obese Orientation: oriented x3 HENMT Head: normal to inspection Ears: hearing grossly normal bilaterally, external ears normal and TM's normal bilaterally General nose exam: external nose normal Face and sinus: normal facial exam Mouth: mucous membranes dry (significantly dry) Throat: posterior oropharynx normal Eyes General: appearance normal, both eyes and all related structures Eyelids: eyelids normal Pupils: PERRL EOM: EOM intact bilaterally Neck Neck: normal visual inspection Lymphatic: no lymphadenopathy noted Chest Chest: normal inspection of the chest Resp Effort & Inspection: normal respiratory effort and able to speak in complete sentences Auscultation: diminished lung sounds bilaterally throughout Cardio Rhythm: regular rhythm GI Inspection: normal to inspection Palpation: soft, not firm, no guarding, no hepatosplenomegaly, no masses and nontender Auscultation: normal bowel sounds Skin General skin exam: no rashes or lesions noted Neuro General: oriented x3 Speech: abnormal speech slurred Motor: other (Able to lift both legs, but increased difficulty with lifting right leg.) Sensory Exam: no sensory deficits noted Extrem General: normal to inspection and normal capillary refill Psych Appearance: disheveled Mental Status: mental status grossly normal Speech and Movement: slurred speech Affect: blunted Thought Process: normal Course Vital Signs Temperature 97.7 F 02/03/19 08:49 Pulse 106 H 02/03/19 08:49 Respiratory Rate 16 02/03/19 08:49 Blood Pressure 107/64 02/03/19 08:49 Temperature 97.7 F 02/03/19 08:49 Temperature Source Skin 02/03/19 08:49 Pulse 106 H 02/03/19 08:49 Respiratory Rate 17 02/03/19 09:02 Respiratory Effort 02/03/19 09:02 Respiratory Depth Shallow 02/03/19 09:02 Blood Pressure 107/64 02/03/19 08:49 Blood Pressure Position Sitting 02/03/19 08:49 Oxygen Delivery Method Room Air 02/03/19 08:49 Oxygen Flow Rate 0 02/03/19 08:49
[2019-02-03 09:14] LABS: FIO2 Cannula %; FIO2L 3 L; Site Left Radial
[2019-02-03 09:15] LABS: Abs Immature Grans 0.05 k/cumm (0.0-0.09); HCT 40.7 % (36.0-46.0); HGB 13.2 g/dL (12.0-15.5); Mean Corp. HGB Concentration 32.4 g/dL (32.0-36.0); Mean Corpuscular Hemoglobin 30.7 pg (27.0-33.0); Mean Corpuscular Volume 94.7 fL (80-95); Mean Platelet Volume 11.5 fL (8.0-11.0); Platelet Count 247 x1000/uL (130-400); RBC Distribution Width 15.1 % (11.7-14.6); White Blood Cell Count 17.49 k/cumm (4.4-10.8)
[2019-02-03 09:31] LABS: ALT 25 U/L (12-78); AST 43 U/L (15-37); Albumin 3.3 g/dL (3.4-5.0); Alkaline Phosphatase 66 U/L (46-116); Anion Gap 7.6 mmol/L (3-11); BUN 34 mg/dL (7-18); Bilirubin, Total 0.5 mg/dL (0.2-1.0); CO2 30.4 mmol/L (21.0-32.0); CREATININE 1.75 mg/dL (0.55-1.02); Calcium 9.3 mg/dL (8.5-10.1); Chloride 101 mmol/L (98-107); Estimated GFR 31.72 (mL/min/1.73m2); Glucose 228 mg/dL (70-100); Lipase 77 U/L (73-393); Magnesium 2.3 mg/dL (1.8-2.4); NT-proBNP 375 pg/mL; Potassium 4.8 mmol/L (3.5-5.1); Sodium 139 mmol/L (136-145); Total Protein 6.9 g/dL (6.4-8.2)
[2019-02-03 09:32] LABS: Troponin I < 0.02 ng/mL (0.00-0.06)
[2019-02-03 09:35] LABS: Salicylate 3.6 mg/dL (2.8-20.0); TSH 1.45 uIU/mL (0.358-3.74)
[2019-02-03 09:36] LABS: Acetaminophen < 2 ug/mL (10-30); PTT Activated 22.8 sec (21.0-31.4); Prothrombin Time 9.9 sec (9.3-11.0)
[2019-02-03 09:48] LABS: Lactate-non-spesis 1.2 mmol/l (0.6-1.4)
[2019-02-03 09:55] LABS: D-Dimer 694 ng/mlFEU (<500)
[2019-02-03] MEDS: Naloxone 0.4 MG/ML VIAL IVP (10:02)
[2019-02-03 10:04] LABS: Absolute Neutrophil Count 10.67 k/cumm (1.2-6.7)
[2019-02-03 10:05] LABS: Absolute Eosinophil Count 0.52 k/cumm (0.0-0.7); Absolute Lymphocyte Count 5.07 k/cumm (1.2-3.4); Absolute Monocyte Count 1.22 k/cumm (0.11-0.7); Atypical Lymphocytes % 9; Diff Comment N; RBC Morphology Normal
[2019-02-03 10:12] LABS: Bilirubin Negative (Negative); Blood Negative (Negative); Clarity Sl Cloudy; Glucose Negative (Negative); Ketones Trace mg/dL (Negative); Leukocyte Esterase Negative (Negative); Nitrite Negative (Negative); Specific Gravity 1.015 (1.005-1.025); Urobilinogen 0.2 EU/dL (Up TO 0.2)
[2019-02-03] MEDS: Normal Saline Flush 10 ML SYR IVP (10:13)
[2019-02-03] MEDS: Lactated Ringers 1,000 ML 1000 ML IV (10:20)
[2019-02-03 10:27] LABS: *AMPHETAMINES SCREEN URINE Negative (Negative); *BARBITURATES SCREEN URINE Negative (Negative); *BENZODIAZEPINES SCREEN URINE POSITIVE (Negative); Cannabinoids THC Negative (Negative); Cocaine Screen,Urine Negative (Negative); METHADONE URINE SCREEN Negative (Negative); OPIATES URINE SCREEN POSITIVE (Negative)
[2019-02-03 10:38] LABS: Tricyclic Antidepressants POSITIVE (Negative)
[2019-02-03] MEDS: LEVOFLOXACIN 750 MG/150 ML BAG 100 MG IVPB (10:42)
[2019-02-03] MEDS: Normal Saline 250 ML IV (10:47)
[2019-02-03 11:08] LABS: Anion Gap 6.5 mmol/L (3-11); BUN 32 mg/dL (7-18); CO2 30.5 mmol/L (21.0-32.0); CREATININE 1.45 mg/dL (0.55-1.02); Calcium 8.2 mg/dL (8.5-10.1); Chloride 105 mmol/L (98-107); Estimated GFR 39.41 (mL/min/1.73m2); Glucose 187 mg/dL (70-100); Potassium 4.6 mmol/L (3.5-5.1); Sodium 142 mmol/L (136-145)
--- NOTE | 2019-02-03 12:58 | CMPROGNOTE_ITS ---
Care Management Progress Note 02/03-Jammie is being admitted to the ICU for dehydration/pneumonia. She presented with drowsiness and generalized weakness. At this time, Jammie is unable to communicate with this CM. This CM met with Jammie's son Micheal at bedside. Micheal states that his mom has been at the Care Bed for the past 2-3 weeks for suicidal ideation. Micheal states that Jammie has three children: Micheal is 23, Jody is 18 and a student at [employer], and Sadia who is 8. Jody lives with Micheal and Micheal states she attends school daily and is doing very well. Sadia is temporary living with a friend, Es Ford, while Jammie is seeking help mental illness. Micheal is very supportive of his mom and verbalizes wanting to help any way he can. Jammie has an apartment in [facility] and her three children live there as well. Dr. Ellis is PCP. Jammie does not have any advance directives and she was unable to engage in conversation so no discussion was had about them. Jammie has Medicare and Medicaid. Micheal has this CM's contact information if further assistance is needed.
[2019-02-03] MEDS: Enoxaparin 40 MG/0.4 ML SYR SC (16:57)
[2019-02-03] MEDS: Insulin Aspart 300 UNITS/3 ML PEN SC (17:12)
--- NOTE | 2019-02-03 17:51 | HPE_ITS ---
Date of service: 02/03/19 Time of Service: 17:48 Assessment and Plan (1) Change in mental status: Current visit: Yes Status: Acute Acute mental status change in a patient with polypharmacy. The explanation the patient gives is that she does not normally take furosemide but this was given during her 8-day stay at the care bed. She feels that this caused excessive amount of urination and she became dehydrated and this had some effect on her other medications. She denies taking any form of an overdose of her usual medications, in particular she did not take an excessive amount of the Dilaudid which she was allowed to self carry. At this point she is becoming more alert and does not require any further Narcan. Will ask mental health to reevaluate once she is medically stable. (2) Bipolar disorder: Current visit: Yes Status: Chronic Based on her medication regimen and severe depression it would seem that she has some form of bipolar disorder. I spoke with Yesika Jacinto at [facility] who has known her over the last 6 months. There have been no new medication changes other than the introduction of Lamictal at bedtime. She will see her in follow-up at discharge. (3) Right lower lobe pneumonia: Current visit: Yes Status: Acute She has a faint infiltrate in the right lower lobe. She has a significant leukocytosis. She presented with hypoxia. Empiric treatment with Levaquin, 750 mg in the ER and 500 mg daily. (4) Suicidal ideation: Current visit: Yes Status: Acute History of recent suicidal ideation. She is currently not feeling suicidal and stable. Continue to monitor in the ICU. (5) Discharge planning issues: Current visit: Yes Status: Acute Patient is a full code admitted to the ICU for further monitoring. History of Present Illness Chief Complaint: Altered mental status/right lower lobe pneumonia Narrative: This is a 43-year-old woman with underlying bipolar disorder, anxiety, and depression who was recently at the [facility] care bed following a suicide gesture. She was getting her meds distributed to her on a regular basis except for her narcotics which she was able to self carry. According to family members she was doing well until last evening when she was noted to be slurring her words and acting intoxicated. This morning workers at the care bed noted that she was slurring her words and felt drugged. She agreed to go to the emergency room. In the emergency room she had an initial O2 sat of 83% she was short of breath and drowsy. She was hypotensive with systolic pressures in the 70s which came up after IV fluid bolus to 112. Chest x-ray revealed a right lower lobe pneumonia. The urine drug screen was positive for opiates, TCA, benzodiazepine. She is admitted to the intensive care unit on IV Levaquin, IV fluids. Review of Systems Review of Systems Patient was groggy and unable to give a complete review of systems. She did deny any problems with chest pain. She denied URI symptoms preceding this episode of mental status change. She was otherwise unable to provide any detailed review of systems. [facility] Medical History Anxiety (Chronic) CAD (coronary artery disease) (Chronic) Cardiomyopathy (Chronic) Carpal tunnel syndrome (Chronic) Chronic pain syndrome (Chronic) DUB (dysfunctional uterine bleeding) (Chronic) Depression (Chronic) Diabetes (Chronic) Fatty liver (Chronic) Frequent headaches (Chronic) Hepatomegaly (Chronic) Hyperlipidemia (Chronic) Lactose intolerance (Chronic) Morbid obesity (Chronic) Polycystic ovaries (Chronic) Splenomegaly (Chronic) Tachycardia (Chronic) Surgical History History of section (Inactive) Previous back surgery (Inactive) Social History Smoking/Tobacco Use Status: Current every day Drug use: Never Do you feel safe in your relationship?: Yes Meds Home Medications Medication Instructions Recorded Confirmed Type clonazepam [Klonopin] 1 mg PO BID 06/28/13 02/03/19 History hydromorphone [Dilaudid] 4 mg PO BID 06/28/13 02/03/19 History paroxetine HCl [Paxil] 60 mg PO DAILY 06/28/13 02/03/19 History rosuvastatin [Crestor] 10 mg PO QPM 06/28/13 02/03/19 History albuterol sulfate 2 puff INHALATION Q4H PRN PRN 12/10/13 01/22/19 History lisinopril 10 mg PO HS 12/10/13 02/03/19 History naratriptan 2.5 mg PO Q2H PRN PRN 12/10/13 02/03/19 History aspirin [Aspir-Low] 81 mg PO DAILY 01/25/14 02/03/19 History glipizide 10 mg PO BID tab-cap 01/15/15 02/03/19 History naproxen 500 mg PO BID tab-cap 01/15/15 02/03/19 History metformin 1,000 mg PO BID 03/12/15 02/03/19 History riboflavin (vitamin B2) [Vitamin 200 mg PO BID 03/13/15 02/03/19 History B-2] metoprolol succinate 150 mg PO HS #225 tab-cap 07/02/15 02/03/19 History Januvia 100 mg PO DAILY 03/05/17 02/03/19 History levothyroxine [Synthroid] 50 mcg PO HS 03/05/17 02/03/19 History magnesium oxide 800 mg PO BID 03/05/17 02/03/19 History nortriptyline 20 mg PO HS 03/05/17 02/03/19 History ondansetron HCl 4 mg PO Q8H PRN 03/05/17 02/03/19 History Lyrica 100 mg PO TID 03/06/17 02/03/19 History vitamin Q24-zjqby acid 1 ea PO DAILY 03/11/17 02/03/19 History Bydureon 2 mg SUBCUT QWEEK 01/22/19 02/03/19 History aripiprazole [Abilify] 10 mg PO HS 01/22/19 02/03/19 History ketorolac 10 mg PO DAILY PRN 01/22/19 02/03/19 History furosemide 20 mg PO QAM 02/03/19 02/03/19 History lamotrigine [Lamictal] 50 mg PO HS 02/03/19 02/03/19 History spironolactone 12.5 mg PO DAILY 02/03/19 02/03/19 History Allergies Allergy/AdvReac Type Severity Reaction Status Date / Time Penicillins Allergy Severe throat Unverified 02/03/19 09:02 closes Sulfa (Sulfonamide Allergy Mild Hives Unverified 02/03/19 09:02 Antibiotics) Exam Narrative Exam Narrative: On exam she is moderately obtunded but is arousable and is able to give some form of history. She was not in any significant respiratory distress, respiratory rate was normal. She did not have cough or stridor. Her lung exam was largely normal with good excursion. Heart sounds were somewhat muffled but regular and without significant murmur. Abdomen was quite morbidly obese but overall soft and nontender to palpation. No masses were appreciated. The lower extremities showed no significant edema there were no overlying lesions or drainage. Neurologically she is moving upper and lower extremities in a purposeful manner. Results Labs : 02/03/19 09:00 02/03/19 10:57 Laboratory Results - last 24 hr 02/03/19 02/03/19 02/03/19 09:00 09:00 09:00 WBC 17.49 H RBC 4.30 Hgb 13.2 Hct 40.7 MCV 94.7 MCH 30.7 MCHC 32.4 RDW 15.1 H Plt Count 247 MPV 11.5 H Immature Gran % See Differential Neutrophils % 61.0 Lymphocytes % 20.0 Atypical Lymphs % 9 Monocytes % 7.0 Eosinophils % 3.0 Basophils % 0.0 Absolute Neutrophils 10.67 H Absolute Lymphocytes 5.07 H Absolute Monocytes 1.22 H Absolute Eosinophils 0.52 Absolute Basophils 0.00 Differential Comment N RBC Morphology Normal PT 9.9 INR 1.0 APTT 22.8 D-Dimer 694 H Sample Site pCO2 pO2 O2 Saturation ABG pH ABG HCO3 ABG Total CO2 ABG Base Excess Oxygen Liter Flow FiO2 Sodium 139 Potassium 4.8 Chloride 101 Carbon Dioxide 30.4 Anion Gap 7.6 BUN 34 H Creatinine 1.75 H Estimated GFR/1.73 m2 31.72 Glucose 228 H Lactate Calcium 9.3 Magnesium 2.3 Total Bilirubin 0.5 AST 43 H ALT 25 Alkaline Phosphatase 66 Troponin I < 0.02 NT-Pro-B Natriuret Pep 375 H Total Protein 6.9 Albumin 3.3 L Lipase 77 TSH Urine Color Urine Clarity Urine pH Ur Specific [place] Urine Protein Urine Ketones Urine Blood Urine Nitrite Urine Bilirubin Urine Urobilinogen Ur Leukocyte Esterase Urine Glucose Salicylates Urine Opiates Screen Urine Methadone Screen Acetaminophen Ur Barbiturates Screen Ur Tricyclics Screen Ur Amphetamines Screen U Benzodiazepines Scrn Urine Cocaine Screen Ur THC Screen 02/03/19 02/03/19 02/03/19 09:00 09:00 09:07 WBC RBC Hgb Hct MCV MCH MCHC RDW Plt Count MPV Immature Gran % Neutrophils % Lymphocytes % Atypical Lymphs % Monocytes % Eosinophils % Basophils % Absolute Neutrophils Absolute Lymphocytes Absolute Monocytes Absolute Eosinophils Absolute Basophils Differential Comment RBC Morphology PT INR APTT D-Dimer Sample Site Left radial pCO2 45 pO2 76 L O2 Saturation 95 ABG pH 7.42 ABG HCO3 29 H ABG Total CO2 26 ABG Base Excess 4.7 H Oxygen Liter Flow 3 FiO2 Cannula Sodium Potassium Chloride Carbon Dioxide Anion Gap BUN Creatinine Estimated GFR/1.73 m2 Glucose Lactate Calcium Magnesium Total Bilirubin AST ALT Alkaline Phosphatase Troponin I NT-Pro-B Natriuret Pep Total Protein Albumin Lipase TSH 1.45 Urine Color Urine Clarity Urine pH Ur Specific [place] Urine Protein Urine Ketones Urine Blood Urine Nitrite Urine Bilirubin Urine Urobilinogen Ur Leukocyte Esterase Urine Glucose Salicylates 3.6 Urine Opiates Screen Urine Methadone Screen Acetaminophen < 2 L Ur Barbiturates Screen Ur Tricyclics Screen Ur Amphetamines Screen U Benzodiazepines Scrn Urine Cocaine Screen Ur THC Screen 02/03/19 02/03/19 02/03/19 09:45 09:50 09:50 WBC RBC Hgb Hct MCV MCH MCHC RDW Plt Count MPV Immature Gran % Neutrophils % Lymphocytes % Atypical Lymphs % Monocytes % Eosinophils % Basophils % Absolute Neutrophils Absolute Lymphocytes Absolute Monocytes Absolute Eosinophils Absolute Basophils Differential Comment RBC Morphology PT INR APTT D-Dimer Sample Site pCO2 pO2 O2 Saturation ABG pH ABG HCO3 ABG Total CO2 ABG Base Excess Oxygen Liter Flow FiO2 Sodium Potassium Chloride Carbon Dioxide Anion Gap BUN Creatinine Estimated GFR/1.73 m2 Glucose Lactate 1.2 Calcium Magnesium Total Bilirubin AST ALT Alkaline Phosphatase Troponin I NT-Pro-B Natriuret Pep Total Protein Albumin Lipase TSH Urine Color Yellow Urine Clarity Sl cloudy Urine pH 6.0 Ur Specific [place] 1.015 Urine Protein Negative Urine Ketones Trace H Urine Blood Negative Urine Nitrite Negative Urine Bilirubin Negative Urine Urobilinogen 0.2 Ur Leukocyte Esterase Negative Urine Glucose Negative Salicylates Urine Opiates Screen Positive Urine Methadone Screen Negative Acetaminophen Ur Barbiturates Screen Negative Ur Tricyclics Screen Positive Ur Amphetamines Screen Negative U Benzodiazepines Scrn Positive Urine Cocaine Screen Negative Ur THC Screen Negative 02/03/19 10:57 WBC RBC Hgb Hct MCV MCH MCHC RDW Plt Count MPV Immature Gran % Neutrophils % Lymphocytes % Atypical Lymphs % Monocytes % Eosinophils % Basophils % Absolute Neutrophils Absolute Lymphocytes Absolute Monocytes Absolute Eosinophils Absolute Basophils Differential Comment RBC Morphology PT INR APTT D-Dimer Sample Site pCO2 pO2 O2 Saturation ABG pH ABG HCO3 ABG Total CO2 ABG Base Excess Oxygen Liter Flow FiO2 Sodium 142 Potassium 4.6 Chloride 105 Carbon Dioxide 30.5 Anion Gap 6.5 BUN 32 H Creatinine 1.45 H Estimated GFR/1.73 m2 39.41 Glucose 187 H Lactate Calcium 8.2 L Magnesium Total Bilirubin AST ALT Alkaline Phosphatase Troponin I NT-Pro-B Natriuret Pep Total Protein Albumin Lipase TSH Urine Color Urine Clarity Urine pH Ur Specific [place] Urine Protein Urine Ketones Urine Blood Urine Nitrite Urine Bilirubin Urine Urobilinogen Ur Leukocyte Esterase Urine Glucose Salicylates Urine Opiates Screen Urine Methadone Screen Acetaminophen Ur Barbiturates Screen Ur Tricyclics Screen Ur Amphetamines Screen U Benzodiazepines Scrn Urine Cocaine Screen Ur THC Screen Last Vital Signs Temp 36.5 C 02/03/19 13:43 Pulse 91 H 02/03/19 15:01 Resp 21 02/03/19 15:01 BP 90/55 L 02/03/19 15:01 Pulse Ox 95 02/03/19 15:01
[2019-02-03] MEDS: Magnesium Oxide 400 MG TAB 800 MG PO (19:46)
[2019-02-03] MEDS: Pregabalin 50 MG CAP PO (19:47)
[2019-02-03] MEDS: Levothyroxine 50 MCG TAB PO (21:50)
[2019-02-03] MEDS: ARIPiprazole 5 MG TAB 10 MG PO (21:50)
[2019-02-03] MEDS: Normal Saline 1,000 ML 125 ML IV (21:58)
[2019-02-04] VITALS (30 sets, daily range): BP systolic 101–125; BP diastolic 47–81; PULSE 81–114; RESP 15–26; TEMP 36.8–37.2; O2SAT 88–97
[2019-02-04] MEDS: Normal Saline 1,000 ML 125 ML IV (05:19)
[2019-02-04 07:35] LABS: Abs Immature Grans 0.03 k/cumm (0.0-0.09); Absolute Basophil Count 0.03 k/cumm (0.0-0.2); Absolute Eosinophil Count 0.43 k/cumm (0.0-0.7); Absolute Lymphocyte Count 2.31 k/cumm (1.2-3.4); Absolute Monocyte Count 0.47 k/cumm (0.11-0.7); Absolute Neutrophil Count 4.67 k/cumm (1.2-6.7); Basophils % 0.4; Eosinophils % 5.4; HCT 34.1 % (36.0-46.0); HGB 10.8 g/dL (12.0-15.5); Immature Grans % 0.4; Lymphocytes % 29.1; Mean Corp. HGB Concentration 31.7 g/dL (32.0-36.0); Mean Corpuscular Hemoglobin 30.5 pg (27.0-33.0); Mean Corpuscular Volume 96.3 fL (80-95); Mean Platelet Volume 11.4 fL (8.0-11.0); Monocytes % 5.9; Neutrophils % 58.8; Platelet Count 163 x1000/uL (130-400); RBC 3.54 m/cumm (4.00-5.20); RBC Distribution Width 15.1 % (11.7-14.6); White Blood Cell Count 7.94 k/cumm (4.4-10.8)
[2019-02-04 07:41] LABS: ALT 28 U/L (12-78); AST 61 U/L (15-37); Albumin 2.6 g/dL (3.4-5.0); Alkaline Phosphatase 48 U/L (46-116); Anion Gap 7.5 mmol/L (3-11); BUN 11 mg/dL (7-18); Bilirubin, Total 0.3 mg/dL (0.2-1.0); CO2 27.5 mmol/L (21.0-32.0); CREATININE 0.78 mg/dL (0.55-1.02); Calcium 8.1 mg/dL (8.5-10.1); Chloride 106 mmol/L (98-107); Glucose 147 mg/dL (70-100); Potassium 4.2 mmol/L (3.5-5.1); Sodium 141 mmol/L (136-145); Total Protein 5.8 g/dL (6.4-8.2)
[2019-02-04 08:09] LABS: Hemoglobin A1C 6.8 % (4.5-6.2)
--- NOTE | 2019-02-04 08:55 | PDOC.CMIN ---
- If Service Date Differs Date of service: 02/04/19 Time of Service: 08:55 Care Management Initial Assess REASON FOR HOSPITALIZATION:: Change in mental status PAST MEDICAL HISTORY/PAST SURGICAL HISTORY:: Anxiety (Chronic). CAD (coronary artery disease) (Chronic). Cardiomyopathy (Chronic). Carpal tunnel syndrome (Chronic). Chronic pain syndrome (Chronic). DUB (dysfunctional uterine bleeding) (Chronic). Depression (Chronic). Diabetes (Chronic). Fatty liver (Chronic). Frequent headaches (Chronic). Hepatomegaly (Chronic). Hyperlipidemia (Chronic). Lactose intolerance (Chronic). Morbid obesity (Chronic). Polycystic ovaries (Chronic). Splenomegaly (Chronic). Tachycardia (Chronic). History of section (Inactive). Previous back surgery (Inactive) PREVIOUS FUNCTIONAL STATUS/SOCIAL/FAMILY SUPPORTS:: Jammie has been residing at the care bed for the past 3 weeks. At baseline, she states that she resides with her family in [facility] which include her three children. Jammie states that she has been on disability since , and that she is independent at baseline, manags ADL's, and drives. CURRENT FUNCTIONAL STATUS:: Currently Jammie is sitting up in her bed in the ICU. She states that she is feeling well, and hopeful to be able to return to the care bed today. ADVANCE DIRECTIVES:: None on file Has patient been provided with information about the portal?: Yes Did the patient sign up for the portal?: No CODE STATUS:: Full Code INSURANCE COVERAGE / FINANCIAL ISSUES:: Medicare, Medicaid CURRENT HOME/COMMUNITY SERVICES/EQUIPMENT:: Currently Jammie receives services through [facility]. She states that she sees Serene Coronel, Karuna Garcia, and Isabell for therapy. PRIMARY CARE PHYSICIAN:: Dr. Ellis POTENTIAL DISCHARGE NEEDS:: F/U appointment with PCP. PATIENT/FAMILY EDUCATION NEEDS:: Review DC instructions, any limitations, and ongoing DC planning discussion. Discuss 'Ask Me three' ANTICIPATED BARRIERS TO DISCHARGE:: None identified at this time. TRANSPORTATION:: Via private vehicle with arianna Burton PLAN:: Jammie will return to The Care Bed once medically cleared. She states that her son Micheal will transport when ready. Jammie will F/U with PCP and plan of care as prescribed.
[2019-02-04] MEDS: Magnesium Oxide 400 MG TAB 800 MG PO (09:32)
[2019-02-04] MEDS: Pregabalin 50 MG CAP PO (09:32)
[2019-02-04] MEDS: clonazePAM 1 MG TAB PO (09:33)
[2019-02-04] MEDS: PARoxetine 20 MG TAB PO (09:43)
[2019-02-04] MEDS: Aspirin E.C. 81 MG TABEC PO (09:46)
[2019-02-04] MEDS: HYDROmorphone 2 MG TAB 4 MG PO (09:46)
[2019-02-04] MEDS: metFORMIN C.R. 500 MG TABCR 1000 MG PO (09:47)
--- NOTE | 2019-02-04 11:52 | PDOC.MHCN ---
Date of service: 02/04/19 Time of Service: 11:53 Mental Health Crisis Note Presenting Issue How did you arrive at the ED and why did you come: Patient came to the ER via ambulance yesterday morning due to acute mental status change. She was subsequently admitted to ICU. Precipitating Factors Patient is doing better today. She is alert and oriented. She denies current suicidal ideation but reports still feeling overwhelmed by her home situation. Patient is looking forward to returning to the Care Bed where she feels safe. Disposition BEHAVIOR: Cooperative. EYE CONTACT: Good. MOOD: Reports feeling overwhelmed. AFFECT: Depressed. APPETITE: Good. SLEEP(trouble falling/staying asleep: Good. Plan Plan is for patient to return to the Care Bed upon discharge from [facility].
--- NOTE | 2019-02-04 11:54 | DSE_ITS ---
Date of service: 02/04/19 Time of Service: 11:51 DS: Diagnosis Discharge Diagnosis (1) Change in mental status: Status: Acute (2) Bipolar disorder: Status: Chronic (3) Suicidal ideation: Status: Resolved (4) Dehydration: Status: Acute Discharge Plan Disposition Patient Disposition: [facility] Condition: Good Discharge Details Reason For Visit: SEPSIS,PNEUMONIA,HYPOTENSION,AMS,POLYMIA Admit Date/Time: 02/03/19 11:40 Admit Provider: Taurus Davis Attending Provider: Taurus Davis Primary Care Provider: Edie Ellis [facility] Course Hospital Course: This is a 43-year-old woman who presented to an [facility] on 01/23/2019 with suicidal ideation and was transferred to the [facility] care bed for further monitoring. About 24 hours prior to admission she became confused and was slurring her words. Caregivers noted on the morning of admission she felt drugged and was slurring her words. She agreed to go to the emergency room. In the emergency room initial O2 sat was 83%, she was short of breath and drowsy. She dropped her blood pressure and required fluid resuscitation. Chest x-ray showed a questionable right lower lobe pneumonia. She was started on IV Levaquin and IV fluids and admitted to the ICU. New Quite rapidly she improved to her baseline level of functioning. Her creatinine which had bumped to 1.75 came down to 0.78. Her urine output was adequate, blood pressure had stabilized. Hemoglobin A1c level 6.8%, white blood cell count 7.94, hemoglobin 10.8 hematocrit 34.1. Blood sugar 147. She was back to her baseline level of functioning. She was somewhat anxious and overwhelmed. She denied any suicidality. Mental health came to evaluate and the plan is to return to the care of bed. She is medically cleared to return to the care bed. Her lung exam was completely clear. With resolution of the leukocytosis antibiotics were discontinued. It was felt the patient did not have pneumonia. Furosemide and spironolactone were discontinued this admission. Home Meds and New Rx's Prescriptions: Continued glipizide 5 MG tablet extended release 24hr 10 mg PO BID RF: 0 naproxen 250 MG tablet 500 mg PO BID RF: 0 metoprolol succinate 50 MG tablet extended release 24 hr 150 mg PO HS Qty: 225 RF: 3 vitamin B24-uerht acid 1 EACH tablet 1 ea PO DAILY RF: 0 clonazepam [Klonopin] 1 MG tablet 1 mg PO BID RF: 0 hydromorphone [Dilaudid] 2 MG tablet 4 mg PO BID RF: 0 paroxetine HCl [Paxil] 20 MG tablet 60 mg PO DAILY RF: 0 rosuvastatin [Crestor] 5 MG tablet 10 mg PO QPM RF: 0 lisinopril 10 MG tablet 10 mg PO HS RF: 0 albuterol sulfate 8.5 GM HFA aerosol inhaler 2 puff Inhalation Q4H PRN PRNRF: 0 naratriptan 2.5 MG tablet 2.5 mg PO Q2H PRN PRNRF: 0 aspirin [Aspir-Low] 81 MG tablet,delayed release (DR/EC) 81 mg PO DAILY RF: 0 metformin 500 MG tablet extended release 24 hr 1,000 mg PO BID RF: 0 riboflavin (vitamin B2) [Vitamin B-2] 50 MG tablet 200 mg PO BID RF: 0 Lyrica 75 MG capsule 100 mg PO TID RF: 0 Bydureon 2 mg/0.65 mL Pen Injector 2 mg subcut QWEEK RF: 0 ketorolac 10 mg Tablet 10 mg PO DAILY PRNRF: 0 aripiprazole [Abilify] 5 mg Tablet 10 mg PO HS RF: 0 lamotrigine [Lamictal] 25 mg Tablet, Chewable Dispersible 50 mg PO HS RF: 0 ondansetron HCl 4 MG tablet 4 mg PO Q8H PRNRF: 0 levothyroxine [Synthroid] 25 MCG tablet 50 mcg PO HS RF: 0 nortriptyline 10 MG capsule 20 mg PO HS RF: 0 Januvia 50 MG tablet 100 mg PO DAILY RF: 0 magnesium oxide 400 MG tablet 800 mg PO BID RF: 0 Discontinued spironolactone 25 mg Tablet 12.5 mg PO DAILY RF: 0 furosemide 20 mg Tablet 20 mg PO QAM RF: 0 Discharge Instructions Instructions: Dehydration (DC) Activity:: Activity as Tolerated Equipment/Supplies:: No Equipment Needed Diet:: Carb Counting Discharge Orders Discharge Orders: Discharge Order (Routine); Ordered 02/04/19 Ordered By: Taurus Davis Exam Narrative Exam Narrative: On exam today patient was alert sitting up on the side of the bed. She is taking p.o. well. She had no respiratory difficulty. She denied any cough or URI symptoms. Her lung exam was completely clear on the right and left. Her heart rate was regular, no murmur. Abdomen massively obese nontender lower extremity showed no evidence of edema. Neurologically no focal deficits were noted her mental status appeared to be back to baseline. DS: Data Vitals/I&O Vitals and I&O: Vital Signs Temperature 36.8 C 02/04/19 08:45 Temperature Source Temporal Artery Scan 02/04/19 08:45 Pulse 97 H 02/04/19 10:31 Pulse 90 02/04/19 10:01 Respiratory Rate 17 02/04/19 09:16 Respiratory Effort 02/04/19 08:45 Respiratory Depth Normal 02/04/19 08:45 Respiratory Pattern Normal 02/04/19 08:45 Blood Pressure 101/62 02/04/19 10:31 Blood Pressure Mean 70 02/04/19 10:31 Blood Pressure Position Sitting 02/04/19 08:45 Pulse Oximetry 95 02/04/19 11:10 Oxygen Delivery Method Room Air 02/04/19 11:10 Oxygen Flow Rate 0 02/04/19 11:10 Pain Level 9 02/04/19 08:45 Intake & Output 02/03/19 02/03/19 02/04/19 11:59 23:59 11:59 Intake Total 3000 / 4800 1800 / 4800 1343.75 / 1343.75 Output Total 1300 / 5375 4075 / 5375 875 / 875 Balance 1700 / -575 -2275 / -575 468.75 / 468.75 Weight 107.1 kg 107.1 kg 108.3 kg Intake: IV 3000 / 3300 300 / 3300 918.75 / 918.75 Oral 1500 / 1500 425 / 425 Output: Urine 1300 / 5375 4075 / 5375 875 / 875 Other: Urine Color Dark Laverne Yellow Yellow Urine Appearance Clear Clear Clear Urine Odor Normal None Comment Pt has voided Pt has passed 3 voids since dara was dc'd. Urine dip not done r/t urine mixed with stool. Stool Occult Blood Negative Stool Size Large Stool Characteristics Formed Hard Brown Voiding Methods Bedside Commode Bedside Commode Labs on day of discharge: Labs from last 24 hours 02/04/19 02/04/19 02/04/19 06:40 06:40 06:40 WBC 7.94 D RBC 3.54 L Hgb 10.8 L D Hct 34.1 L MCV 96.3 H MCH 30.5 MCHC 31.7 L RDW 15.1 H Plt Count 163 MPV 11.4 H Immature Gran % 0.4 Neutrophils % 58.8 Lymphocytes % 29.1 Monocytes % 5.9 Eosinophils % 5.4 Basophils % 0.4 Absolute Neutrophils 4.67 Absolute Lymphocytes 2.31 Absolute Monocytes 0.47 Absolute Eosinophils 0.43 Absolute Basophils 0.03 Sodium 141 Potassium 4.2 Chloride 106 Carbon Dioxide 27.5 Anion Gap 7.5 BUN 11 D Creatinine 0.78 D Estimated GFR/1.73 m2 >= 60.00 Glucose 147 H Hemoglobin A1c 6.8 H Calcium 8.1 L Total Bilirubin 0.3 AST 61 H ALT 28 Alkaline Phosphatase 48 Total Protein 5.8 L Albumin 2.6 L 02/03/19 10:15 Blood Blood Culture - Pending 02/03/19 10:30 Blood Blood Culture - Pending Preliminary micro results at discharge 02/03/19 10:15 Blood Culture - Pending Blood 02/03/19 10:30 Blood Culture - Pending Blood [facility] Medical History Anxiety (Chronic) CAD (coronary artery disease) (Chronic) Cardiomyopathy (Chronic) Carpal tunnel syndrome (Chronic) Chronic pain syndrome (Chronic) DUB (dysfunctional uterine bleeding) (Chronic) Depression (Chronic) Diabetes (Chronic) Fatty liver (Chronic) Frequent headaches (Chronic) Hepatomegaly (Chronic) Hyperlipidemia (Chronic) Lactose intolerance (Chronic) Morbid obesity (Chronic) Polycystic ovaries (Chronic) Splenomegaly (Chronic) Tachycardia (Chronic) Surgical History History of section (Inactive) Previous back surgery (Inactive) Social History Smoking/Tobacco Use Status: Current every day Drug use: Never Do you feel safe in your relationship?: Yes
[2019-02-04] MEDS: Insulin Aspart 300 UNITS/3 ML PEN SC (12:37)
--- NOTE | 2019-02-04 12:55 | PDOC.CMDIS ---
- If Service Date Differs Date of service: 02/04/19 Time of Service: 12:55 LACE Index Scoring Tool - Questions: Length of Stay (in days): 1 Acuity (Admit via E.D.?): Yes Comorbidities: Diabetes w/o Complication E.D. Visits: 4 - Answers: Total Score: 9 Risk of Readmission: Low Risk Care Management Discharge Reason for Hospitalization: Change in mental status Discharge Plan: Jammie will return to the care bed today. Shakira [facility], has met with Jammie at [facility] and facilitated return to care bed. Jammie's son Micheal will transport her. Jammie will F/U with PCP, Counselor, and plan of care as prescribed. Patient/Family Education Needs: Review DC instructions, any limitations, and discuss Ask Me Three
== END 2019-02-04 13:40 | disposition designated cancer center or children's hospital (05) | DRG 947 ==
LOC: ER 12:10 → ICU 13:27
PROVIDERS: Admitting Provider Family Medicine; Emergency Provider Physician Assistant; PCP Family Medicine; Visit Provider Family Medicine
DX: R41.82 Altered mental status, unspecified (principal); J18.1 Lobar pneumonia, unspecified organism; R45.851 Suicidal ideations; F31.9 Bipolar disorder, unspecified; E86.0 Dehydration; R09.02 Hypoxemia; F17.210 Nicotine dependence, cigarettes, uncomplicated; E11.9 Type 2 diabetes mellitus without complications
CPT/HCPCS: 36410; 36415; 51702; 80048; 80053; 80307; 81025; 82805; 83690; 87040; 93005; 96361; 96365; 96374; 99223; 99239; 99285; J1650; 36600; 70450; 71046; 80329; 81003; 83036; 83605; 83735; 83880; 84443; 84484; 85025; 85379; 85610; 85730; 93010; J1956; J2310; J3490

== ENCOUNTER 2019-02-14 11:06 | Outpatient (CLI) | payer MEDICARE, MEDICAID, SELFPAY | END 2019-02-14 11:26 | PROVIDERS: PCP Family Medicine; Visit Provider Internal Medicine Interventional Cardiology | DX: R07.9 Chest pain, unspecified (principal); R55 Syncope and collapse; I42.9 Cardiomyopathy, unspecified | CPT/HCPCS: 93005; 93010 ==

== ENCOUNTER 2019-03-09 17:37 | Observation (INO) | payer MEDICARE, MEDICAID, SELFPAY ==
[2019-03-09] VITALS (40 sets, daily range): BP systolic 85–116; BP diastolic 44–74; PULSE 84–104; RESP 10–32; TEMP 36.3; O2SAT 85–100
[2019-03-09 18:04] LABS: Abs Immature Grans 0.04 k/cumm (0.0-0.09); HCT 41.7 % (36.0-46.0); HGB 13.3 g/dL (12.0-15.5); Mean Corp. HGB Concentration 31.9 g/dL (32.0-36.0); Mean Corpuscular Hemoglobin 29.4 pg (27.0-33.0); Mean Corpuscular Volume 92.1 fL (80-95); Mean Platelet Volume 11.4 fL (8.0-11.0); Platelet Count 217 x1000/uL (130-400); RBC 4.53 m/cumm (4.00-5.20); RBC Distribution Width 13.7 % (11.7-14.6); White Blood Cell Count 11.02 k/cumm (4.4-10.8)
[2019-03-09] MEDS: Normal Saline 1,000 ML 1000 ML IV ×3 (18:06→20:38)
[2019-03-09] MEDS: Meclizine 25 MG TAB PO (18:06)
[2019-03-09 18:14] LABS: BE (Venous) 3.3 mmol/L (-3-3); HCO3 (Venous) 30 mmol/L (22-28); O2 Sat (Venous) 62 % (70-80); TCO2 (Venous) 27 mmol/L (22-29); pCO2 (Venous) 60 mm/Hg (34-47); pO2 (Venous) 34 mm/Hg (28-44)
[2019-03-09 18:15] LABS: Absolute Lymphocyte Count 4.63 k/cumm (1.2-3.4); Absolute Monocyte Count 0.88 k/cumm (0.11-0.7); Absolute Neutrophil Count 4.41 k/cumm (1.2-6.7); Atypical Lymphocytes % 6; Diff Comment Manual Differential; RBC Morphology Normal
--- NOTE | 2019-03-09 18:15 | W.ED.GENAD ---
Discharge Plan Disposition Patient Disposition: [facility] INPATIENT Condition: Good Discharge Details Chief Complaint: Chest Pain Clinical Impression: Chest pain, Dehydration, Fatigue Primary Care Provider: Edie Ellis ED Provider: Edin Taylor Home Meds and New Rx's Prescriptions: No Action spironolactone 25 mg tablet 12.5 mg PO DAILY RF: 0 glipizide 5 MG tablet extended release 24hr 10 mg PO BID RF: 0 naproxen 250 MG tablet 500 mg PO BID RF: 0 metoprolol succinate 50 MG tablet extended release 24 hr 150 mg PO HS Qty: 225 RF: 3 vitamin [id number] acid 1 EACH tablet 1 ea PO DAILY RF: 0 hydromorphone [Dilaudid] 2 MG tablet 4 mg PO BID RF: 0 rosuvastatin [Crestor] 5 MG tablet 10 mg PO QPM RF: 0 lisinopril 10 MG tablet 10 mg PO HS RF: 0 albuterol sulfate 8.5 GM HFA aerosol inhaler 2 puff Inhalation Q4H PRN PRNRF: 0 naratriptan 2.5 MG tablet 2.5 mg PO Q2H PRN PRNRF: 0 aspirin [Aspir-Low] 81 MG tablet,delayed release (DR/EC) 81 mg PO DAILY RF: 0 metformin 500 MG tablet extended release 24 hr 1,000 mg PO BID RF: 0 riboflavin (vitamin B2) [Vitamin B-2] 50 MG tablet 200 mg PO BID RF: 0 Lyrica 75 MG capsule 100 mg PO TID RF: 0 Bydureon 2 mg/0.65 mL Pen Injector 2 mg subcut QWEEK RF: 0 ketorolac 10 mg Tablet 10 mg PO DAILY PRNRF: 0 aripiprazole [Abilify] 5 mg Tablet 10 mg PO HS RF: 0 lamotrigine [Lamictal] 25 mg Tablet, Chewable Dispersible 50 mg PO HS RF: 0 ondansetron HCl 4 MG tablet 4 mg PO Q8H PRNRF: 0 levothyroxine [Synthroid] 25 MCG tablet 50 mcg PO HS RF: 0 nortriptyline 10 MG capsule 20 mg PO HS RF: 0 Januvia 50 MG tablet 100 mg PO DAILY RF: 0 magnesium oxide 400 MG tablet 800 mg PO BID RF: 0 Vyvanse 20 mg Capsule 20 mg PO QAM RF: 0 Medical Decision Making This is a 43-year-old female with multiple medical problems including asthma, previous history of dilated cardiomyopathy, thyroid disease, psych problems, high cholesterol, coronary artery disease, who presents today for evaluation of fatigue, and malaise over the last few days. She also admits to some associated chest pain,, shortness of breath, and fatigue. She has no headache, fever, neck pain, abdominal pain, vomiting or diarrhea. She resides at the care bed and has her medications given to her by a professional. Exam demonstrates no focal neurologic deficits, no clinical signs of meningitis, EKG shows no evidence of STEMI. Vital signs demonstrate a low blood pressure in the mid 90s, mild tachycardia, no hypoxemia. She does have mild bradypnea. Differential is broad, but included ACS, severe dehydration, PE, metabolic abnormality, or infectious etiology. 9:[address] angiogram shows no evidence of pulmonary embolism or other significant abnormality. CT head is negative for any acute process or stroke. Laboratory workup demonstrates minimal white count, no bandemia. No left shift. VBG shows mild acidemia with a pH of 7.3, PCO2 is 60, suggesting a mild respiratory acidosis. Normal electrolytes, normal renal function, troponin is negative. ProBNP is normal, TSH is normal. Urinalysis shows no signs of infection. Urine drug screen is positive for opiates, tricyclics, and benzos, which seems to correlate with her medication list. She is not on chronic steroids, so I feel adrenal crisis unlikely, mono is negative. Bedside limited cardiac ultrasound demonstrates no signs of severe global dysfunction, no pericardial effusion. Patient was given 2-1/2 L of normal saline blood pressure is unchanged, but heart rate has slightly improved. She remains in the 90s systolic, with no worsening or improving. Patient denies any illicit drugs, or attempted overdose or any other complaints. She shows no clinical signs of meningitis. I am uncertain as to the etiology the nature of this patient's symptoms including her blood pressure, and slight decreased mental status. She notably demonstrates a GCS of 15, shows no signs of obtundation. I did contact the hospitalist and discussed the case with Dr. Ruff, he agrees with the current plan, he does recommend a trial of Narcan. This has been given and patient has no acute changes. Recommend admission for cardiac echo, medication management, reassessment. EKG 17: 47 Rate 103, KS 170, QTc 479, QRS 88, sinus tachycardia, no significant ST elevations or depressions, there is an inverted T wave in V1, as well as lead III. Q wave is noted in lead III. No broad terminal S wave in lead I. No other significant abnormalities CLINICAL HISTORY: 43 years old, female; Pain and signs and symptoms; Shortness of breath; Chest pain; Type not specified; Patient HX: Shortness of breath, chest pain, palpitations TECHNIQUE: Imaging protocol: Axial computed tomographic angiography images of the chest with intravenous contrast using CT angiography protocol. Coronal and sagittal reformatted images were created and reviewed. 3D rendering: MIP reconstructed images were created and reviewed. Radiation optimization: All CT scans at this facility use at least one of these dose optimization techniques: automated exposure control; mA and/or kV adjustment per patient size (includes targeted exams where dose is matched to clinical indication); or iterative reconstruction. Contrast material: [id number] Contrast volume: 100 ml Contrast route: iv COMPARISON: CR XR CHEST 2V PA LATERAL 02/03/2019 9:30 AM FINDINGS: Pulmonary arteries: Due to late timing of the scan following administration of IV contrast, there is limited evaluation for pulmonary embolus. No embolus within the main pulmonary artery, right and left pulmonary arteries, and the interlobar artery. However, cannot exclude pulmonary emboli within the segmental and subsegmental pulmonary arteries. Aorta: No aortic aneurysm. No aortic dissection. Great vessels off aortic arch: Left common carotid artery arises from the brachiocephalic trunk. Lungs: No consolidation. No masses. Pleural space: Normal. No pneumothorax. No pleural effusion. Heart: No cardiomegaly. No pericardial effusion. Spleen: Spleen is enlarged, measuring 14.4 cm. Lymph nodes: Unremarkable. No enlarged lymph nodes. Bones/joints: Unremarkable. No acute fracture. Soft tissues: Unremarkable. IMPRESSION: 1. Due to late timing of the scan following administration of IV contrast, there is limited evaluation for pulmonary embolus. No embolus within the main pulmonary artery, right and left pulmonary arteries, and the interlobar artery. However, cannot exclude pulmonary emboli within the segmental and subsegmental pulmonary arteries. 2. Spleen is enlarged, measuring 14.4 cm. Dictated and Authenticated by: Jairo Christy MD. Comparison: CT HEAD WO 02/03/2019 9:09 AM Findings: Brain: No evidence for acute transcortical infarct. No mass effect or midline shift. No extra-axial collection. No acute intracranial hemorrhage. Basal cisterns are patent. Ventricles: Normal. No ventriculomegaly. Bones/joints: Unremarkable. No acute fracture. Sinuses: Visualized sinuses are unremarkable. No acute sinusitis. Mastoid air cells: Visualized mastoid air cells are unremarkable. No mastoid effusion. Soft tissues: Unremarkable. Impression: No evidence for acute transcortical infarct, acute intracranial hemorrhage, or mass effect. Dictated and Authenticated by: Jairo Christy MD. Ordering:ANGELA Jesus MD HPI General Date/Time Provider Initiated Documentation: 03/09/19 17:39. 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 She also has some mild dizziness and shortness of breath, as well as chest pain that she describes as a chest squeezing-like sensation. She denies any exertional component to her chest pain. She denies a history of blood clots. She denies any arm, neck, or shoulder pain. She denies any cough, fever, or chills. She denies any headache, neck pain, abdominal pain, vomiting, or diarrhea. She does admit to mild generalized unsteadiness, but denies any focal weakness. She is currently at the care bed, and has her medications given to her by a professional. She denies any IV or illicit drug use. She has no other complaints or modifying factors at this time. Related Data Home Medications Medication Instructions Recorded Confirmed hydromorphone [Dilaudid] 4 mg PO BID 06/28/13 03/09/19 rosuvastatin [Crestor] 10 mg PO QPM 06/28/13 03/09/19 albuterol sulfate 2 puff INHALATION Q4H PRN PRN 12/10/13 03/09/19 lisinopril 10 mg PO HS 12/10/13 03/09/19 naratriptan 2.5 mg PO Q2H PRN PRN 12/10/13 03/09/19 aspirin [Aspir-Low] 81 mg PO DAILY 01/25/14 03/09/19 glipizide 10 mg PO BID tab-cap 01/15/15 03/09/19 naproxen 500 mg PO BID tab-cap 01/15/15 03/09/19 metformin 1,000 mg PO BID 03/12/15 03/09/19 riboflavin (vitamin B2) [Vitamin 200 mg PO BID 03/13/15 03/09/19 B-2] metoprolol succinate 150 mg PO HS #225 tab-cap 07/02/15 03/09/19 Januvia 100 mg PO DAILY 03/05/17 03/09/19 levothyroxine [Synthroid] 50 mcg PO HS 03/05/17 03/09/19 magnesium oxide 800 mg PO BID 03/05/17 03/09/19 nortriptyline 20 mg PO HS 03/05/17 03/09/19 ondansetron HCl 4 mg PO Q8H PRN 03/05/17 03/09/19 Lyrica 100 mg PO TID 03/06/17 03/09/19 vitamin [id number] acid 1 ea PO DAILY 03/11/17 03/09/19 Bydureon 2 mg SUBCUT QWEEK 01/22/19 03/09/19 aripiprazole [Abilify] 10 mg PO HS 01/22/19 03/09/19 ketorolac 10 mg PO DAILY PRN 01/22/19 03/09/19 lamotrigine [Lamictal] 50 mg PO HS 02/03/19 03/09/19 spironolactone 25 mg tablet 12.5 mg PO DAILY tab 02/14/19 03/09/19 lisdexamfetamine [Vyvanse] 20 mg PO QAM 03/09/19 03/09/19 Allergies Allergy/AdvReac Type Severity Reaction Status Date / Time Penicillins Allergy Severe throat Unverified 03/09/19 17:53 closes Sulfa (Sulfonamide Allergy Mild Hives Unverified 03/09/19 17:53 Antibiotics) General Stated Complaint: Chest Pain RENATO: 3 Review of Systems Review of Systems All systems reviewed & are unremarkable except as noted in HPI and below PFSH Social History Smoking/Tobacco Use Status: Current every day Drug use: Never Do you feel safe at home: Yes Do you feel safe in your relationship?: Yes Exam Narrative Exam Narrative: 1.Const: Well-nourished, Well-developed, appearing stated age 2.Eyes: PERRL, no conjunctival injection, and symmetrical lids. No evidence of pinpoint pupils 3.ENT: Atraumatic external nose and ears. Moist MM. Neck: Symmetric, trachea midline, No thyromegaly. Patient demonstrates good movement of cervical neck. There is no nuchal rigidity, no nuchal tenderness. Patient is able to flex the neck without any difficulty or significant pain. Negative Kernig's and Brudzinski sign. 4.CVS: +S1/S2, No murmurs or gallops. Peripheral pulses 2+ and equal in all extremities. Brisk capillary refill in all extremities. 5.RESP: Unlabored respiratory effort. Clear to auscultation bilaterally. No wheezes rales or rhonchi 6.GI: Soft, Nontender/Nondistended, No hepatosplenomegaly. No guarding or rebound. 7.MSK: Normocephalic/Atraumatic, Extremities w/o deformity or ttp No cyanosis or clubbing, Normal movement of all extremities. +1 pitting edema in the lower extremities bilaterally. 8.Skin: Warm, Dry. No rashes or lesions. 9.Neuro: insulation board back tender II-XII grossly intact. Sensation grossly intact, no focal neurologic deficits. All 6 cardinal planes of vision are fully intact. No evidence of rotatory or vertical nystagmus. The patient demonstrated a normal [id number], good dexterity. There was no evidence of dysdiadochokinesia. Patient was able to ambulate without difficulty. There was no wide-based gait. Romberg, and [id number] are both normal on testing. Sensation was intact bilaterally as well as muscle strength bilaterally for all extremities. Patient was able to verbalize butter cup with no slurring, or miss pronunciation. 10.Psych: (AAO) x3. Notable fatigue, no evidence of lethargy or obtundation Course Vital Signs Temperature 36.3 C L 03/09/19 17:40 Pulse 104 H 03/09/19 17:40 Respiratory Rate 16 03/09/19 17:40 Blood Pressure 95/56 L 03/09/19 17:40 Pulse Oximetry 98 03/09/19 17:40 Temperature 36.3 C L 03/09/19 17:40 Pulse 104 H 03/09/19 17:40 Respiratory Rate 16 03/09/19 17:40 Respiratory Effort 03/09/19 17:49 Blood Pressure 95/56 L 03/09/19 17:40 Blood Pressure Position Sitting 03/09/19 17:40 Pulse Oximetry 98 03/09/19 17:40 Oxygen Delivery Method Room Air 03/09/19 17:40 Oxygen Flow Rate 0 03/09/19 17:40 Pain Level 7 03/09/19 17:40 Lab/Test Results Lab/Test Results: Laboratory Tests Range/Units 03/09/19 17:47 VBG pH (7.32-7.43) 7.30 L VBG pCO2 (34-47) mm/Hg 60 H VBG pO2 (28-44) mm/Hg 34 VBG HCO3 (22-28) mmol/L 30 H VBG Total CO2 (22-29) mmol/L 27 VBG O2 Saturation (70-80) % 62 L VBG Base Excess (-3-3) mmol/L 3.3 H
[2019-03-09 18:29] LABS: Ammonia < 10 umol/L (11-32)
[2019-03-09 18:35] LABS: ALT 25 U/L (12-78); AST 22 U/L (15-37); Albumin 3.5 g/dL (3.4-5.0); Alkaline Phosphatase 78 U/L (46-116); Anion Gap 5.5 mmol/L (3-11); BUN 16 mg/dL (7-18); Bilirubin, Total 0.5 mg/dL (0.2-1.0); CO2 30.5 mmol/L (21.0-32.0); CREATININE 1.04 mg/dL (0.55-1.02); Calcium 8.9 mg/dL (8.5-10.1); Chloride 100 mmol/L (98-107); Estimated GFR 57.84 (mL/min/1.73m2); Glucose 79 mg/dL (70-100); NT-proBNP 53 pg/mL; Potassium 4.6 mmol/L (3.5-5.1); Sodium 136 mmol/L (136-145); Total Protein 7.1 g/dL (6.4-8.2)
[2019-03-09 18:43] LABS: ETHANOL BLOOD < 3.0 mg/dL (<3); Troponin I < 0.02 ng/mL (0.00-0.06)
[2019-03-09 19:06] LABS: Bilirubin Negative (Negative); Blood Negative (Negative); Clarity Clear; Glucose Negative (Negative); Ketones Negative (Negative); Leukocyte Esterase Negative (Negative); Nitrite Negative (Negative); Urobilinogen 0.2 EU/dL (Up TO 0.2); pH 5.5 (5-8)
[2019-03-09 19:16] LABS: *AMPHETAMINES SCREEN URINE Negative (Negative); *BARBITURATES SCREEN URINE Negative (Negative); *BENZODIAZEPINES SCREEN URINE POSITIVE (Negative); Cannabinoids THC Negative (Negative); Cocaine Screen,Urine Negative (Negative); METHADONE URINE SCREEN Negative (Negative); OPIATES URINE SCREEN POSITIVE (Negative)
[2019-03-09 19:22] LABS: Tricyclic Antidepressants POSITIVE (Negative)
--- NOTE | 2019-03-09 19:26 | DI.CT_ITS ---
SYMPTOM/DIAGNOSIS: SOB, CHEST PAIN, PALPITATIONS, CONFUSION, DIZZINESS CRANIAL CT (WITHOUT CONTRAST): A noncontrast cranial CT was performed. The ventricular system is normal in appearance. There is no evidence of an intracranial mass lesion. There is no evidence of a subdural or epidural hematoma. No focal areas of decreased attenuation are seen. CONCLUSION: Normal noncontrast Cranial CT. PE CHEST CT: CT angiography was performed with multi slice acquisition and multi planar and 3D reconstruction. CT angiography of the chest was performed with a bolus infusion of 100 cc's of Omnipaque 350. The lungs are predominantly clear but there is a group of small consolidative or nodular opacities of the right upper lobe laterally with nodularity measuring up to about 6 mm. in diameter. No prior chest CT available for comparison. Follow up chest CT recommended in 6 months. Tracheobronchial tree appears intact. No pleural effusion or pneumothorax. Pulmonary arteries are not ideally opacified but no central pulmonary embolus is seen. Thoracic aorta and major branches appear normal. Note is made of splenomegaly. Visualized portions of liver, adrenals and kidneys appear normal. CONCLUSION: Limited study with no gross evidence of pulmonary embolic disease in the large pulmonary arterial vessels. Incidental findings of nodular opacities right upper lobe, 6 month follow up chest CT recommended.
[2019-03-09] MEDS: Omnipaque 350 MG/ML 100 ML BTL IJ (19:29)
--- NOTE | 2019-03-09 19:51 | DI.VRAD_ITS ---
EXAM: CT Head Without Contrast EXAM DATE/TIME: 03/09/2019 5:57 PM CLINICAL HISTORY: 43 years old, female; Signs and symptoms; Dizziness TECHNIQUE: Imaging protocol: Axial computed tomography images of the head/brain without contrast. Coronal and sagittal reformatted images were created and reviewed. Radiation optimization: All CT scans at this facility use at least one of these dose optimization techniques: automated exposure control; mA and/or kV adjustment per patient size (includes targeted exams where dose is matched to clinical indication); or iterative reconstruction. COMPARISON: CT HEAD WO 02/03/2019 9:09 AM FINDINGS: Brain: No evidence for acute transcortical infarct. No mass effect or midline shift. No extra-axial collection. No acute intracranial hemorrhage. Basal cisterns are patent. Ventricles: Normal. No ventriculomegaly. Bones/joints: Unremarkable. No acute fracture. Sinuses: Visualized sinuses are unremarkable. No acute sinusitis. Mastoid air cells: Visualized mastoid air cells are unremarkable. No mastoid effusion. Soft tissues: Unremarkable. IMPRESSION: No evidence for acute transcortical infarct, acute intracranial hemorrhage, or mass effect. Dictated and Authenticated by: Jairo Christy MD. Ordering:ANGELA Jesus MD
--- NOTE | 2019-03-09 19:56 | DI.VRAD_ITS ---
EXAM: CT Angiography Chest With Contrast EXAM DATE/TIME: 03/09/2019 5:57 PM CLINICAL HISTORY: 43 years old, female; Pain and signs and symptoms; Shortness of breath; Chest pain; Type not specified; Patient HX: Shortness of breath, chest pain, palpitations TECHNIQUE: Imaging protocol: Axial computed tomographic angiography images of the chest with intravenous contrast using CT angiography protocol. Coronal and sagittal reformatted images were created and reviewed. 3D rendering: MIP reconstructed images were created and reviewed. Radiation optimization: All CT scans at this facility use at least one of these dose optimization techniques: automated exposure control; mA and/or kV adjustment per patient size (includes targeted exams where dose is matched to clinical indication); or iterative reconstruction. Contrast material: [id number] Contrast volume: 100 ml Contrast route: iv COMPARISON: CR XR CHEST 2V PA LATERAL 02/03/2019 9:30 AM FINDINGS: Pulmonary arteries: Due to late timing of the scan following administration of IV contrast, there is limited evaluation for pulmonary embolus. No embolus within the main pulmonary artery, right and left pulmonary arteries, and the interlobar artery. However, cannot exclude pulmonary emboli within the segmental and subsegmental pulmonary arteries. Aorta: No aortic aneurysm. No aortic dissection. Great vessels off aortic arch: Left common carotid artery arises from the brachiocephalic trunk. Lungs: No consolidation. No masses. Pleural space: Normal. No pneumothorax. No pleural effusion. Heart: No cardiomegaly. No pericardial effusion. Spleen: Spleen is enlarged, measuring 14.4 cm. Lymph nodes: Unremarkable. No enlarged lymph nodes. Bones/joints: Unremarkable. No acute fracture. Soft tissues: Unremarkable. IMPRESSION: 1. Due to late timing of the scan following administration of IV contrast, there is limited evaluation for pulmonary embolus. No embolus within the main pulmonary artery, right and left pulmonary arteries, and the interlobar artery. However, cannot exclude pulmonary emboli within the segmental and subsegmental pulmonary arteries. 2. Spleen is enlarged, measuring 14.4 cm. Dictated and Authenticated by: Jairo Christy MD. Ordering:ANGELA Jesus MD
[2019-03-09 20:13] LABS: Mono Screening Negative (Negative)
[2019-03-09] MEDS: Lactated Ringers 1,000 ML 1000 ML IV (20:30)
[2019-03-09] MEDS: Naloxone 0.4 MG/ML VIAL IVP (21:22)
[2019-03-10] VITALS (35 sets, daily range): BP systolic 94–116; BP diastolic 52–70; PULSE 84–107; RESP 10–32; TEMP 36.1–37.3; O2SAT 91–100
--- NOTE | 2019-03-10 00:12 | HPE_ITS ---
Date of service: 03/09/19 Time of Service: 21:30 Assessment and Plan (1) Change in mental status: Current visit: Yes Status: Acute It appears that she suffered acutely decompensated mental status change from metabolic encephalopathy and hypercarbia probably brought about by polypharmacy use including benzodiazepines, tricyclic antidepressants, narcotic analgesics, Lyrica and a new SSRI (Viibryd). She also may have a component of MENG. She did not initially respond to narcan and her workup was essentially negative inlcuding head CT, CTA of her chest and routine labs. However her VBG demonstrated a respiratory acidosis and her mental status deteriorated in the ER but she responded to use of BIPAP and is now alert and oriented and responding appropriately. She is now admitted on observation for medication adjustment of her psychiatric meds. Qualifiers: Altered mental status type: somnolence Qualified Code(s): R40.0 - Somnolence (2) Dyspnea: Current visit: Yes Status: Acute no clear etiology for her symptomatology. No evidence for MS nor PE and no pneumonia on CTA of her chest. Possibly related to her polypharmacy use of multiple sedating medications. I will check follow up echocardiogram in the a.m. regarding her cardiomyopathy. some contribution to her dyspnea may be untreated/undiagnosed MENG as well as her deconditioning from her obesity Qualifiers: Dyspnea type: dyspnea on exertion Qualified Code(s): R06.09 - Other forms of dyspnea (3) Atypical chest pain: Current visit: Yes Status: Acute no evidence for ACS nor PE. Initial troponin and EKG were negative for ischemia. I will repeat troponin now to be sure that there has been no change. I think that if her repeat troponin is negative and her echo shows no new changes in her CM then she can be discharged in the a.m. 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 For now I am going to hold her lisinopril and her metoprol XL as she presented w/ low blood pressure and required iv fluids. I think that her iv fluids can be held now or reduced to KVO as she no longer appears to be volume depleted. (5) Type 2 diabetes mellitus: Current visit: Yes Status: Acute hold her metformin and her glipizide while and inpatient. Will monitor her glucose AC/HS and cover meals w/ novolog and use corrective scale for elevated glucose readings. check her A1C to assess her group home control. Qualifiers: Diabetes mellitus complication status: without complication Diabetes mellitus group home insulin use: without intermediate accountant use Qualified Code(s): E11.9 - Type 2 diabetes mellitus without complications (6) Bipolar disorder: Current visit: No Status: Chronic she needs her antidepressant and antianxiolytics adjusted to avoid over sedation. History of Present Illness Chief Complaint: tired, short of breath Narrative: 43 yr old female w/ PMH bipolar disorder, suicidal ideation, DM type 2, chronic pain syndrome, post cardiomyopathy who was recently hospitalized at [facility] 02/03-02/04/2019 for acute mental status change secondary to polypharmacy use and RLL pneumonia. She currently is residing at a [facility] bed in [place], [place]. She was brought to the ER tonight by her boyfriend for evaluation of dyspnea and chest pain. Upon arrival she underwent routine labs and EKG. EKG demonstrated sinus tachycardia at 103 bpm w/ diffusely decreased voltage across all leads but no acute ST-T changes and her EKG was essentially unchanged from January 2019. Labs were remarkable for VBG that demonstrated respiratory acidosis w/ PCO2 of 60 and pH of 7.30. Her CMP, TSH and troponin and BNP and ammonia level were all normal. Her CBC showed minimal leukocytosis of 11,000 but no anemia. Urine drug screen was positive for opiates (she is on dilaudid for pain management) and for benzodiazepines (she was taking clonazepam and diazepam), and positive for tri cyclic antidepressants (she is on nortriptyline). She underwent CTA of her chest and this showed no large PE in the main pulmonary artery trunk nor in the right and left pulmonary arteries or interlobar artery. However d/t late timing of the scan PE within the segmental and subsegmental arteries could not be excluded. While in the ER she became rather somnolent and she underwent CT of the head whi ch was negative. Narcan was given but she had really no response to this in terms of improvement in her somnolent state. When I evaluated her in the ER, I requested that she be put on bipap to see if this is CO2 narcosis brought on by her meds and/or underlying MENG that is undiagnosed. It took awhile but after couple of hours of being on the BIPAP she came around and now is more alert and conversant and she is oriented to person/place/time. She ambulated to the bathroom w/ assistance from ER nursing. She is being admitted overnight to the ER as there are insufficient staffing on med/surg and no ICU beds available to accomodate the patient. Review of Systems Review of Systems All systems reviewed & are unremarkable except as noted in HPI and below PFSH Medical History Anxiety (Chronic) CAD (coronary artery disease) (Chronic) Cardiomyopathy (Chronic) Carpal tunnel syndrome (Chronic) Chronic pain syndrome (Chronic) DUB (dysfunctional uterine bleeding) (Chronic) Depression (Chronic) Diabetes (Chronic) Fatty liver (Chronic) Frequent headaches (Chronic) Hepatomegaly (Chronic) Hyperlipidemia (Chronic) Lactose intolerance (Chronic) Morbid obesity (Chronic) Polycystic ovaries (Chronic) Splenomegaly (Chronic) Tachycardia (Chronic) Surgical History History of section (Inactive) Previous back surgery (Inactive) Social History Smoking/Tobacco Use Status: Current every day Drug use: Never Do you feel safe at home: Yes Do you feel safe in your relationship?: Yes Meds Home Medications Medication Instructions Recorded Confirmed Type hydromorphone [Dilaudid] 4 mg PO BID 06/28/13 03/09/19 History rosuvastatin [Crestor] 10 mg PO QPM 06/28/13 03/09/19 History albuterol sulfate 2 puff INHALATION Q4H PRN PRN 12/10/13 03/09/19 History lisinopril 10 mg PO HS 12/10/13 03/09/19 History naratriptan 2.5 mg PO Q2H PRN PRN 12/10/13 03/09/19 History aspirin [Aspir-Low] 81 mg PO DAILY 01/25/14 03/09/19 History glipizide 10 mg PO BID tab-cap 01/15/15 03/09/19 History naproxen 500 mg PO BID tab-cap 01/15/15 03/09/19 History metformin 1,000 mg PO BID 03/12/15 03/09/19 History riboflavin (vitamin B2) [Vitamin 200 mg PO BID 03/13/15 03/09/19 History B-2] metoprolol succinate 150 mg PO HS #225 tab-cap 07/02/15 03/09/19 History Januvia 100 mg PO DAILY 03/05/17 03/09/19 History levothyroxine [Synthroid] 50 mcg PO HS 03/05/17 03/09/19 History magnesium oxide 800 mg PO BID 03/05/17 03/09/19 History nortriptyline 20 mg PO HS 03/05/17 03/09/19 History ondansetron HCl 4 mg PO Q8H PRN 03/05/17 03/09/19 History Lyrica 100 mg PO TID 03/06/17 03/09/19 History vitamin [id number] acid 1 ea PO DAILY 03/11/17 03/09/19 History Bydureon 2 mg SUBCUT QWEEK 01/22/19 03/09/19 History aripiprazole [Abilify] 10 mg PO HS 01/22/19 03/09/19 History ketorolac 10 mg PO DAILY PRN 01/22/19 03/09/19 History lamotrigine [Lamictal] 50 mg PO HS 02/03/19 03/09/19 History spironolactone 25 mg tablet 12.5 mg PO DAILY tab 02/14/19 03/09/19 History vilazodone [Viibryd] 10 mg PO DAILY 03/09/19 03/09/19 History Allergies Allergy/AdvReac Type Severity Reaction Status Date / Time Penicillins Allergy Severe throat Unverified 03/09/19 17:53 closes Sulfa (Sulfonamide Allergy Mild Hives Unverified 03/09/19 17:53 Antibiotics) Exam Const General: no acute distress and lethargic (lethargic at 2130 but after bipap now awake and oriented) Nutritional Appearance: obese Orientation: alert, awake and oriented x3 HENMT Head: normal to inspection, no palpable skull fracture, normocephalic and atraumatic General nose exam: external nose normal Face and sinus: normal facial exam Mouth: oral mucosae normal Eyes General: appearance normal, both eyes and all related structures Alignment and Position: alignment normal Periorbital: periorbital findings normal Eyelids: eyelids normal Conjunctivae: conjunctivae normal Cornea: corneas normal Pupils: PERRL EOM: EOM intact bilaterally Neck Neck: normal visual inspection, full ROM, no lymphadenopathy, no meningeal signs, trachea midline, supple and no JVD Thyroid: thyroid normal Carotids: normal carotid upstroke Lymphatic: no lymphadenopathy noted Resp Effort & Inspection: normal respiratory effort and able to speak in complete sentences Auscultation: clear to auscultation bilaterally Cardio Jugular venous pressure: no JVD Palpation: normal PMI Rate: regular rate Rhythm: regular rhythm Heart Sounds: S1 normal, S2 normal and normal, physiologic split S2 Pulses: normal peripheral pulses GI Inspection: obesity Palpation: soft and no hepatosplenomegaly Percussion: normal to percussion Auscultation: normal bowel sounds Back/Spine/Pelvis Back: no CVA tenderness Cervical Spine: normal cervical lordosis Thoracic/Lumbar Spine: thoracic and lumbar spine normal to inspection Skin General skin exam: no rashes or lesions noted, elasticity normal and turgor normal Lesions: no lesions Rashes: no rashes Trauma: no lacerations or abrasions Wounds: no wounds Extrem General: normal to inspection, full ROM, normal capillary refill, no joint enlargement and no clubbing, cyanosis or edema Results Imaging Abdomen CT scan report/results: report reviewed (MPRESSION: 1. Due to late timing of the scan following administration of IV contrast, there is limited evaluation for pulmonary embolus. No embolus within the main pulmonary artery, right and left pulmonary arteries, and the interlobar artery. However, cannot exclude pulmonary emboli within the ) Additional studies: CT head w/out contrast: IMPRESSION: No evidence for acute transcortical infarct, acute intracranial hemorrhage, or mass effect. Dictated and Authenticated by: Jairo Christy MD. Labs : 03/09/19 17:47 03/10/19 06:00 Laboratory Results - last 24 hr 03/09/19 03/09/19 03/09/19 17:47 17:47 17:47 WBC RBC Hgb Hct MCV MCH MCHC RDW Plt Count MPV Immature Gran % Neutrophils % Lymphocytes % Atypical Lymphs % Monocytes % Eosinophils % Basophils % Absolute Neutrophils Absolute Lymphocytes Absolute Monocytes Absolute Eosinophils Absolute Basophils Differential Comment RBC Morphology VBG pH VBG pCO2 VBG pO2 VBG HCO3 VBG Total CO2 VBG O2 Saturation VBG Base Excess Sodium 136 Potassium 4.6 Chloride 100 Carbon Dioxide 30.5 Anion Gap 5.5 BUN 16 Creatinine 1.04 H Estimated GFR/1.73 m2 57.84 Glucose 79 Calcium 8.9 Total Bilirubin 0.5 AST 22 ALT 25 Alkaline Phosphatase 78 Ammonia < 10 L Troponin I < 0.02 NT-Pro-B Natriuret Pep 53 Total Protein 7.1 Albumin 3.5 TSH 2.30 Urine Color Urine Clarity Urine pH Ur Specific [place] Urine Protein Urine Ketones Urine Blood Urine Nitrite Urine Bilirubin Urine Urobilinogen Ur Leukocyte Esterase Urine Glucose Urine Opiates Screen Urine Methadone Screen Ur Barbiturates Screen Ur Tricyclics Screen Ur Amphetamines Screen U Benzodiazepines Scrn Urine Cocaine Screen Ur THC Screen Ethyl Alcohol < 3.0 Monoscreen 03/09/19 03/09/19 03/09/19 17:47 17:47 17:47 WBC 11.02 H RBC 4.53 Hgb 13.3 Hct 41.7 MCV 92.1 MCH 29.4 MCHC 31.9 L RDW 13.7 Plt Count 217 MPV 11.4 H Immature Gran % 0.0 Neutrophils % 40.0 Lymphocytes % 36.0 Atypical Lymphs % 6 Monocytes % 8.0 Eosinophils % 10.0 Basophils % 0.0 Absolute Neutrophils 4.41 Absolute Lymphocytes 4.63 H Absolute Monocytes 0.88 H Absolute Eosinophils 1.10 H Absolute Basophils 0.00 Differential Comment Manual differential RBC Morphology Normal VBG pH 7.30 L VBG pCO2 60 H VBG pO2 34 VBG HCO3 30 H VBG Total CO2 27 VBG O2 Saturation 62 L VBG Base Excess 3.3 H Sodium Potassium Chloride Carbon Dioxide Anion Gap BUN Creatinine Estimated GFR/1.73 m2 Glucose Calcium Total Bilirubin AST ALT Alkaline Phosphatase Ammonia Troponin I NT-Pro-B Natriuret Pep Total Protein Albumin TSH Urine Color Urine Clarity Urine pH Ur Specific [place] Urine Protein Urine Ketones Urine Blood Urine Nitrite Urine Bilirubin Urine Urobilinogen Ur Leukocyte Esterase Urine Glucose Urine Opiates Screen Urine Methadone Screen Ur Barbiturates Screen Ur Tricyclics Screen Ur Amphetamines Screen U Benzodiazepines Scrn Urine Cocaine Screen Ur THC Screen Ethyl Alcohol Monoscreen Negative 03/09/19 03/09/19 19:00 19:00 WBC RBC Hgb Hct MCV MCH MCHC RDW Plt Count MPV Immature Gran % Neutrophils % Lymphocytes % Atypical Lymphs % Monocytes % Eosinophils % Basophils % Absolute Neutrophils Absolute Lymphocytes Absolute Monocytes Absolute Eosinophils Absolute Basophils Differential Comment RBC Morphology VBG pH VBG pCO2 VBG pO2 VBG HCO3 VBG Total CO2 VBG O2 Saturation VBG Base Excess Sodium Potassium Chloride Carbon Dioxide Anion Gap BUN Creatinine Estimated GFR/1.73 m2 Glucose Calcium Total Bilirubin AST ALT Alkaline Phosphatase Ammonia Troponin I NT-Pro-B Natriuret Pep Total Protein Albumin TSH Urine Color Yellow Urine Clarity Clear Urine pH 5.5 Ur Specific [place] 1.010 Urine Protein Negative Urine Ketones Negative Urine Blood Negative Urine Nitrite Negative Urine Bilirubin Negative Urine Urobilinogen 0.2 Ur Leukocyte Esterase Negative Urine Glucose Negative Urine Opiates Screen Positive Urine Methadone Screen Negative Ur Barbiturates Screen Negative Ur Tricyclics Screen Positive Ur Amphetamines Screen Negative U Benzodiazepines Scrn Positive Urine Cocaine Screen Negative Ur THC Screen Negative Ethyl Alcohol Monoscreen Last Vital Signs Temp 36.3 C L 03/09/19 17:40 Pulse 97 H 03/09/19 23:01 Resp 22 03/09/19 23:01 BP 102/69 03/09/19 23:01 Pulse Ox 100 03/09/19 22:45
[2019-03-10 00:19] LABS: HCO3 24 mmol/L (22-28); pCO2 46 mmHg (34-47); pH 7.33 (7.35-7.45); pO2 99 mmHg (83-108); sO2 97 % (94-98); tCO2 22 mmol/L (22-29)
[2019-03-10 00:21] LABS: FIO2 BiPAP %; FIO2L 30% L; Site Right Radial
[2019-03-10] MEDS: Normal Saline 1,000 ML 50 ML IV (01:21)
[2019-03-10] MEDS: Heparin 5,000 UNITS/ML VIAL 5000 UNITS SC ×2 (01:25→11:13)
[2019-03-10 01:46] LABS: Troponin I < 0.02 ng/mL (0.00-0.06)
[2019-03-10] MEDS: Acetaminophen 325 MG TAB PO (05:38)
[2019-03-10 06:10] LABS: BE -1.5 mmol/L (-3-3); HCO3 24 mmol/L (22-28); pCO2 44 mmHg (34-47); pH 7.35 (7.35-7.45); pO2 101 mmHg (83-108); sO2 97 % (94-98); tCO2 22 mmol/L (22-29)
[2019-03-10 06:13] LABS: Site Left Radial
[2019-03-10 06:22] LABS: BUN 16 mg/dL (7-18); CREATININE 1.32 mg/dL (0.55-1.02); Calcium 8.4 mg/dL (8.5-10.1); Chloride 103 mmol/L (98-107); Estimated GFR 43.92 (mL/min/1.73m2); Glucose 93 mg/dL (70-100); Potassium 5.2 mmol/L (3.5-5.1); Sodium 138 mmol/L (136-145)
--- NOTE | 2019-03-10 09:00 | MERGE_ITS ---
*[facility]* *[facility]* [address] [place] [address] Date of study: 03/10/2019 Transthoracic Echocardiography M-mode, complete 2D, complete spectral Doppler, and color Doppler *STUDY CONCLUSIONS* Summary: 1. Left ventricle: The cavity size was normal. The estimated ejection fraction was 60%. Diastolic parameters were normal. There was no evidence of elevated ventricular filling pressure by Doppler parameters. 2. Mitral valve: There was mild regurgitation. 3. Right ventricle: The cavity size was normal. Wall thickness was normal. Systolic function was normal. 4. Atrial septum: No defect or patent foramen ovale was identified. 5. Pulmonary arteries: Pulmonary systolic pressure was in the range of 25mm Hg to 35mm Hg. 6. Inferior vena cava: The vessel was patent and normal in size. The respirophasic diameter changes were in the normal range (greater than or equal to 50%), consistent with normal central venous pressure. *PATIENT PRESENTATION* Height: 162.6cm ((64in) ) S/D Pressure: 103 / 68 Weight: 105.2kg ((231.5lb) ) BSA: 2.23m^2 Test start time: 09:10 AM. Test stop time: 10:10 AM. CONSULTING Edie Ellis PERFORMING Unknown PERFORMING Nv ORDERING Alfredo Ruff REFERRING Alfredo Ruff TECHNICAL SERVICES LIBRARIAN RT [place] (R)(CT), [facility] *PROCEDURE DATA* Procedure information: The patient was identified by two identifiers. This study was interpreted by [facility]. Pertinent images and digital data are archived for permanent storage and are available for subsequent review. Comparison was made to the study of 01/27/2019. Study status: Routine. Transthoracic echocardiography. M-mode, complete 2D, complete spectral Doppler, and color Doppler. A Transthoracic Echocardiogram was performed. Scanning was performed from the parasternal, apical, subcostal, and suprasternal notch acoustic windows. Images were obtained using an [id number] cardiac ultrasound machine. Image quality was adequate. Study completion: The patient tolerated the procedure well. History: PMH: Follow up post cardiomyopathy. *CARDIAC ANATOMY* Left ventricle: The cavity size was normal. The estimated ejection fraction was 60%. The tissue Doppler parameters were normal. Diastolic parameters were normal. There was no evidence of elevated ventricular filling pressure by Doppler parameters. Aortic valve: Trileaflet. Doppler: There was no stenosis. There was no regurgitation. VTI ratio of LVOT to aortic valve: 0.97. Valve area (VTI): 3cm^2. Indexed valve area (VTI): 1.4cm^2/m^2. Peak velocity ratio of LVOT to aortic valve: 0.83. Indexed valve area (Vmax): 1.2cm^2/m^2. Mean velocity ratio of LVOT to aortic valve: 0.75. Valve area (Vmean): 2.3cm^2. Indexed valve area (Vmean): 1.1cm^2/m^2. Mean gradient (S): 5.3mm Hg. Peak gradient (S): 9.7mm Hg. Aorta: Aortic root: The aortic root was normal in size. Ascending aorta: The ascending aorta was at upper normal limits. Mitral valve: Doppler: There was no evidence for stenosis. There was mild regurgitation. Valve area by pressure half-time: 5.2cm^2. Indexed valve area by pressure half-time: 2.3cm^2/m^2. Peak gradient (D): 5mm Hg. Left atrium: The atrium was normal in size. Atrial septum: No defect or patent foramen ovale was identified. Right ventricle: The cavity size was normal. Wall thickness was normal. Systolic function was normal. Pulmonic valve: Doppler: There was no evidence for stenosis. There was no significant regurgitation. Peak gradient (S): 6.9mm Hg. Tricuspid valve: Doppler: There was mild regurgitation. Pulmonary artery: Poorly visualized. Pulmonary systolic pressure was in the range of 25mm Hg to 35mm Hg. Right atrium: The atrium was normal in size. Pericardium: There was no pericardial effusion. Systemic veins: Inferior vena cava: Well visualized. The vessel was patent and normal in size. The respirophasic diameter changes were in the normal range (greater than or equal to 50%), consistent with normal central venous pressure. Baseline ECG: Normal sinus rhythm. Measurements Left ventricle Value 01/27/2019 Reference LV ID, ED, PLAX 4.9 cm 4.9 3.5 - 6.0 LV ID, ES, PLAX 3.6 cm 3.6 2.1 - 4.0 LV PW thickness, ED, PLAX 1.0 cm 1.0 LV end-diastolic volume, 85 ml 88 1-p A2C LV ejection fraction, 1-p 57 % 56 A2C LV end-diastolic volume, 119 ml 84 1-p A4C LV ejection fraction, 1-p 60 % 51 A4C LV e', lateral 0.204 m/sec 0.137 LV E/e', lateral 5 8 LV e', medial 0.181 m/sec 0.105 LV E/e', medial 6 11 LV e', average 0.193 m/sec 0.121 LV E/e', average 6 9 Ventricular septum Value 01/27/2019 Reference IVS thickness, ED, PLAX 1.1 cm 0.9 LVOT Value 01/27/2019 Reference LVOT ID, A-P 2.0 cm 2.0 LVOT area 3.1 cm^2 3 LVOT peak velocity, S 1.29 m/sec 0.97 LVOT mean velocity, S 0.82 m/sec 0.75 LVOT VTI, S 27.2 cm 21.5 LVOT peak gradient, S 6.7 mm Hg 3.8 LVOT mean gradient, S 3.2 mm Hg 2.5 Stroke volume (SV), LVOT 85 ml 65 DP Stroke index (SV/bsa), 38 ml/m^2 30 LVOT DP Aortic valve Value 01/27/2019 Reference Aortic valve peak 1.6 m/sec 1.3 velocity, S Aortic valve mean 1.1 m/sec 0.88 velocity, S Aortic valve VTI, S 28.0 cm 25.0 Aortic mean gradient, S 5.3 mm Hg 3.4 Aortic peak gradient, S 9.7 mm Hg 6.9 VTI ratio, LVOT/AV 0.97 0.86 Aortic valve area, VTI 3 cm^2 2.6 Velocity ratio, peak, 0.83 0.74 LVOT/AV Velocity ratio, mean, 0.75 0.86 LVOT/AV Aortic valve area, mean 2.3 cm^2 2.6 velocity Aortic valve area/bsa, 1.1 cm^2/m^2 1.2 mean velocity Aorta Value 01/27/2019 Reference Aortic root ID, ED 2.8 cm 2.7 Ascending aorta ID, A-P, S 3.2 cm 2.9 Left atrium Value 01/27/2019 Reference LA ID, A-P, ES 4.0 cm 3.6 LA ID/bsa, A-P 1.8 cm/m^2 1.6 <=2.2 LA area, ES, A4C 18.6 cm^2 17 8.8 - 23.4 LA area, ES, A2C 14 cm^2 18 LA volume/bsa, ES, 1-p A4C 27 ml/m^2 24 LA volume, ES, 2-p 41 ml 53 LA volume/bsa, ES, 2-p 19 ml/m^2 24 LA/aortic root ratio 1.44 1.31 Mitral valve Value 01/27/2019 Reference Mitral E-wave peak 1.12 m/sec 1.12 velocity Mitral A-wave peak 1.23 m/sec 0.83 velocity Mitral deceleration time (L) 146 ms 189 150 - 230 Mitral pressure half-time 42 ms 55 Mitral peak gradient, D 5 mm Hg 5 Mitral E/A ratio, peak 0.91 1.35 Mitral valve area, PHT, DP 5.2 cm^2 4 Tricuspid valve Value 01/27/2019 Reference Tricuspid regurg peak 2.6 m/sec 2.1 velocity Tricuspid peak RV-RA 26.9 mm Hg 18.3 gradient Right atrium Value 01/27/2019 Reference RA area, ES, A4C 15.2 cm^2 13.6 8.3 - 19.5 Pulmonic valve Value 01/27/2019 Reference Pulmonic peak gradient, S 6.9 mm Hg 5.3 Legend: (L) and (H) chase values outside specified reference range. I have personally reviewed the images and have reviewed and edited the reported findings. Electronically signed by Taurus Menjivar MD 03/10/2019 15:57
[2019-03-10] MEDS: Aspirin E.C. 81 MG TABEC PO (11:13)
[2019-03-10] MEDS: Magnesium Oxide 400 MG TAB 800 MG PO ×2 (11:13→19:58)
[2019-03-10] MEDS: Omeprazole 20 MG CAPCR PO (11:14)
[2019-03-10] MEDS: Mylanta Suspension 30 ML CUP PO (11:14)
[2019-03-10] MEDS: Docusate Sodium 100 MG CAP PO (12:02)
[2019-03-10] MEDS: Insulin Aspart 300 UNITS/3 ML PEN SC ×2 (12:07→12:08)
--- NOTE | 2019-03-10 13:43 | W.PM.PROGNOT ---
Date of Service Date of service: 03/10/19 Time of Service: 13:44 Assessment and Plan (1) Change in mental status: Current visit: Yes Status: Acute Appears to be back at baseline today. Altered mental status related to metabolic encephalopathy and hypercarbia probably brought about by polypharmacy use including benzodiazepines, tricyclic antidepressants, narcotic analgesics, Lyrica and a new SSRI (Viibryd). Improved with BiPAP. CT head negative, CTA chest did not show PE. Continue to hold Viibryd, otherwise resume usual psyche medications. Decrease dilaudid. Continue to monitor. She would benefit from sleep study as an outpatient. Qualifiers: Altered mental status type: somnolence Qualified Code(s): R40.0 - Somnolence (2) Dyspnea: Current visit: Yes Status: Acute Improved. Denies shortness of breath. No evidence of OR, PE, or PNA on initial evaluation. Continue to monitor. Qualifiers: Dyspnea type: dyspnea on exertion Qualified Code(s): R06.09 - Other forms of dyspnea (3) Atypical chest pain: Current visit: Yes Status: Acute Denies chest pain this morning. No evidence of PE, OR, PNA. Troponin negative. Echocardiogram done today, results pending. Consider outpatient stress test. Follow up with cardiology after discharge. 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 BNP normal on admission. Her blood pressure has been low, she appears to run low chronically. Conitinue to hold Lisinopril and metoprolol XL. Continue gentle IV fluids as creatinine is elevated today. (5) Acute kidney injury: Current visit: Yes Status: Acute Creatinine elevated today to 1.32. Baseline appears to be around 0.8. Continue gentle IV fluids in the setting of cardiomyopathy history. BMP in the morning. (6) Type 2 diabetes mellitus: Current visit: Yes Status: Acute Blood glucose 104 this morning. Hgb A1c 6.0. Continue to hold her metformin and her glipizide. Continue to monitor blood glucose at and cover with sensitive sliding scale insulin. Continue carbohydrate counting diet. Qualifiers: Diabetes mellitus group home insulin use: without terminal block assembler use Diabetes mellitus complication status: without complication Qualified Code(s): E11.9 - Type 2 diabetes mellitus without complications (7) Bipolar disorder: Current visit: No Status: Chronic Resume medications with adjustments to include holding new Viibryd, continue clonazepam, but hold diazepam. Decrease dilaudid in the setting of over sedation. (8) Chronic back pain: Current visit: Yes Status: Acute No change in chronic low back pain. Continue dilaudid at lower dose. Aqua K pack for comfort. (9) DVT prophylaxis: Current visit: Yes Status: Acute Subcutaneous heparin. (10) Discharge planning issues: Current visit: Yes Status: Acute She is a FULL CODE. This case was discussed with Dr. Stern who is in agreement. Subjective Interval history since last seen: Jammie is awake and alert today, she was nauseated, she vomited once. She is requesting that her medications be restarted. She is agreeable to some adjustments in her medications including holding Viibrya and decreasing dilaudid. She has chronic back pain. She reports feeling like herself, she denies dizziness, headache, shortness of breath, coughing, wheezing, chest pain/pressure, palpitations. She is no longer nauseated, no more vomiting, bowels are moving normally, no diarrhea, she denies dysuria or hematuria. Exam Narrative Exam Narrative: General: Sitting up in bed, awake and alert, in no acute distress, answers questions appropriately. HEENT: normocephalic, atraumatic, pupils equal and round, EOMI, mucous membranes moist. Neck: supple, no JVD. Respiratory: respirations even and unlabored, lung sounds clear to auscultation throughout. Cardiovascular: heart has regular rate and rhythm, no murmur appreciated. Gastrointestinal: soft, normoactive bowel sounds, no masses appreciated. Extremities: no clubbing, cyanosis or edema. Pedal pulses palpable bilaterally. Objective Objective Clinical Data: Abnormal lab results 03/09/19 03/09/19 03/09/19 Range/Units 17:47 17:47 17:47 WBC 11.02 H (4.4-10.8) k/cumm MCHC 31.9 L (32.0-36.0) g/dL MPV 11.4 H (8.0-11.0) fL Absolute Lymphocytes 4.63 H (1.2-3.4) k/cumm Absolute Monocytes 0.88 H (0.11-0.7) k/cumm Absolute Eosinophils 1.10 H (0.0-0.7) k/cumm ABG pH (7.35-7.45) VBG pH (7.32-7.43) VBG pCO2 (34-47) mm/Hg VBG HCO3 (22-28) mmol/L VBG O2 Saturation (70-80) % VBG Base Excess (-3-3) mmol/L Potassium (3.5-5.1) mmol/L Creatinine 1.04 H (0.55-1.02) mg/dL Calcium (8.5-10.1) mg/dL Ammonia < 10 L (11-32) umol/L 03/09/19 03/10/19 03/10/19 Range/Units 17:47 00:15 06:00 WBC (4.4-10.8) k/cumm MCHC (32.0-36.0) g/dL MPV (8.0-11.0) fL Absolute Lymphocytes (1.2-3.4) k/cumm Absolute Monocytes (0.11-0.7) k/cumm Absolute Eosinophils (0.0-0.7) k/cumm ABG pH 7.33 L (7.35-7.45) VBG pH 7.30 L (7.32-7.43) VBG pCO2 60 H (34-47) mm/Hg VBG HCO3 30 H (22-28) mmol/L VBG O2 Saturation 62 L (70-80) % VBG Base Excess 3.3 H (-3-3) mmol/L Potassium 5.2 H (3.5-5.1) mmol/L Creatinine 1.32 H (0.55-1.02) mg/dL Calcium 8.4 L (8.5-10.1) mg/dL Ammonia (11-32) umol/L Vital Signs Temperature 36.1 C L 03/10/19 12:09 Temperature Source Tympanic 03/10/19 12:09 Pulse 92 H 03/10/19 12:09 Pulse 97 H 03/10/19 07:40 Respiratory Rate 16 03/10/19 12:09 Respiratory Effort 03/09/19 17:49 Blood Pressure 100/70 03/10/19 12:09 Blood Pressure Mean 81 03/10/19 05:37 Blood Pressure Position Sitting 03/09/19 17:40 Pulse Oximetry 94 L 03/10/19 12:09 Oxygen Delivery Method Room Air 03/10/19 12:09 Oxygen Flow Rate 0 03/10/19 12:09 Fraction of Inspired Oxygen (FIO2) 25 03/10/19 06:08 Pain Level 10 03/10/19 08:51 Intake & Output 03/09/19 03/10/19 03/10/19 23:59 11:59 23:59 Intake Total 3121.667 / 3121.667 325.833 / 325.833 Output Total 500 / 500 1350 / 1350 Balance 2621.667 / 2621.667 -1024.167 / -1024.167 Weight 105.687 kg 105.687 kg Intake: IV 3121.667 / 3121.667 225.833 / 225.833 Oral 100 / 100 Output: Urine 500 / 500 1350 / 1350 Other: Urine Color Yellow Urine Appearance Clear Urine Odor None Voiding Methods Toilet # Voids 1 Laboratory Results WBC 11.02 k/cumm (4.4-10.8) H 03/09/19 17:47 RBC 4.53 m/cumm (4.00-5.20) 03/09/19 17:47 Hgb 13.3 g/dL (12.0-15.5) 03/09/19 17:47 Hct 41.7 % (36.0-46.0) 03/09/19 17:47 MCV 92.1 fL (80-95) 03/09/19 17:47 MCH 29.4 pg (27.0-33.0) 03/09/19 17:47 MCHC 31.9 g/dL (32.0-36.0) L 03/09/19 17:47 RDW 13.7 % (11.7-14.6) 03/09/19 17:47 Plt Count 217 x1000/uL (130-400) 03/09/19 17:47 MPV 11.4 fL (8.0-11.0) H 03/09/19 17:47 Immature Gran % 0.0 03/09/19 17:47 Neutrophils % 40.0 03/09/19 17:47 Lymphocytes % 36.0 03/09/19 17:47 Atypical Lymphs % 6 03/09/19 17:47 Monocytes % 8.0 03/09/19 17:47 Eosinophils % 10.0 03/09/19 17:47 Basophils % 0.0 03/09/19 17:47 Absolute Neutrophils 4.41 k/cumm (1.2-6.7) 03/09/19 17:47 Absolute Lymphocytes 4.63 k/cumm (1.2-3.4) H 03/09/19 17:47 Absolute Monocytes 0.88 k/cumm (0.11-0.7) H 03/09/19 17:47 Absolute Eosinophils 1.10 k/cumm (0.0-0.7) H 03/09/19 17:47 Absolute Basophils 0.00 k/cumm (0.0-0.2) 03/09/19 17:47 Differential Comment Manual differential 03/09/19 17:47 RBC Morphology Normal 03/09/19 17:47 Sample Site Left radial 03/10/19 06:05 pCO2 44 mmHg (34-47) 03/10/19 06:05 pO2 101 mmHg (83-108) 03/10/19 06:05 O2 Saturation 97 % (94-98) 03/10/19 06:05 ABG pH 7.35 (7.35-7.45) 03/10/19 06:05 ABG HCO3 24 mmol/L (22-28) 03/10/19 06:05 ABG Total CO2 22 mmol/L (22-29) 03/10/19 06:05 ABG Base Excess -1.5 mmol/L (-3-3) 03/10/19 06:05 VBG pH 7.30 (7.32-7.43) L 03/09/19 17:47 VBG pCO2 60 mm/Hg (34-47) H 03/09/19 17:47 VBG pO2 34 mm/Hg (28-44) 03/09/19 17:47 VBG HCO3 30 mmol/L (22-28) H 03/09/19 17:47 VBG Total CO2 27 mmol/L (22-29) 03/09/19 17:47 VBG O2 Saturation 62 % (70-80) L 03/09/19 17:47 VBG Base Excess 3.3 mmol/L (-3-3) H 03/09/19 17:47 Oxygen Liter Flow bipap 25% L 03/10/19 06:05 FiO2 bipap 25% % 03/10/19 06:05 Sodium 138 mmol/L (136-145) 03/10/19 06:00 Potassium 5.2 mmol/L (3.5-5.1) H 03/10/19 06:00 Chloride 103 mmol/L (98-107) 03/10/19 06:00 Carbon Dioxide 27.0 mmol/L (21.0-32.0) 03/10/19 06:00 Anion Gap 8.0 mmol/L (3-11) 03/10/19 06:00 BUN 16 mg/dL (7-18) 03/10/19 06:00 Creatinine 1.32 mg/dL (0.55-1.02) H 03/10/19 06:00 Estimated GFR/1.73 m2 43.92 (mL/min/1.73m2) 03/10/19 06:00 Glucose 93 mg/dL (70-100) 03/10/19 06:00 Hemoglobin A1c 6.0 % (4.5-6.2) 03/10/19 06:00 Calcium 8.4 mg/dL (8.5-10.1) L 03/10/19 06:00 Total Bilirubin 0.5 mg/dL (0.2-1.0) 03/09/19 17:47 AST 22 U/L (15-37) 03/09/19 17:47 ALT 25 U/L (12-78) 03/09/19 17:47 Alkaline Phosphatase 78 U/L (46-116) 03/09/19 17:47 Ammonia < 10 umol/L (11-32) L 03/09/19 17:47 Troponin I < 0.02 ng/mL (0.00-0.06) 03/10/19 01:25 NT-Pro-B Natriuret Pep 53 pg/mL (-299) 03/09/19 17:47 Total Protein 7.1 g/dL (6.4-8.2) 03/09/19 17:47 Albumin 3.5 g/dL (3.4-5.0) 03/09/19 17:47 TSH 2.30 uIU/mL (0.358-3.74) 03/09/19 17:47 Urine Color Yellow (Yellow) 03/09/19 19:00 Urine Clarity Clear 03/09/19 19:00 Urine pH 5.5 (5-8) 03/09/19 19:00 Ur Specific [place] 1.010 (1.005-1.025) 03/09/19 19:00 Urine Protein Negative mg/dL (Negative) 03/09/19 19:00 Urine Ketones Negative mg/dL (Negative) 03/09/19 19:00 Urine Blood Negative (Negative) 03/09/19 19:00 Urine Nitrite Negative (Negative) 03/09/19 19:00 Urine Bilirubin Negative (Negative) 03/09/19 19:00 Urine Urobilinogen 0.2 EU/dL (Up TO 0.2) 03/09/19 19:00 Ur Leukocyte Esterase Negative (Negative) 03/09/19 19:00 Urine Glucose Negative mg/dL (Negative) 03/09/19 19:00 Urine Opiates Screen Positive (Negative) 03/09/19 19:00 Urine Methadone Screen Negative (Negative) 03/09/19 19:00 Ur Barbiturates Screen Negative (Negative) 03/09/19 19:00 Ur Tricyclics Screen Positive (Negative) 03/09/19 19:00 Ur Amphetamines Screen Negative (Negative) 03/09/19 19:00 U Benzodiazepines Scrn Positive (Negative) 03/09/19 19:00 Urine Cocaine Screen Negative (Negative) 03/09/19 19:00 Ur THC Screen Negative (Negative) 03/09/19 19:00 Ethyl Alcohol < 3.0 mg/dL (<3) 03/09/19 17:47 Monoscreen Negative (Negative) 03/09/19 17:47
[2019-03-10] MEDS: Normal Saline 1,000 ML 75 ML IV (16:40)
[2019-03-10] MEDS: Pregabalin 100 MG CAP PO (19:59)
[2019-03-10] MEDS: HYDROmorphone 2 MG TAB PO (19:59)
[2019-03-10] MEDS: Nortriptyline 10 MG CAP 20 MG PO (21:20)
[2019-03-10] MEDS: Levothyroxine 25 MCG TAB 50 MCG PO (21:21)
[2019-03-10] MEDS: ARIPiprazole 5 MG TAB 10 MG PO (21:21)
[2019-03-11] VITALS (7 sets, daily range): BP systolic 95–108; BP diastolic 60–69; PULSE 82–94; RESP 15–17; TEMP 36.6–37.2; O2SAT 95–99
[2019-03-11] MEDS: Normal Saline 1,000 ML 75 ML IV (05:55)
[2019-03-11] MEDS: Acetaminophen 325 MG TAB PO (06:11)
[2019-03-11] MEDS: Omeprazole 20 MG CAPCR PO (06:11)
[2019-03-11 07:07] LABS: HCT 33.2 % (36.0-46.0); HGB 10.8 g/dL (12.0-15.5); Mean Corp. HGB Concentration 32.5 g/dL (32.0-36.0); Mean Corpuscular Hemoglobin 29.3 pg (27.0-33.0); Mean Corpuscular Volume 90.2 fL (80-95); Platelet Count 145 x1000/uL (130-400); RBC 3.68 m/cumm (4.00-5.20); RBC Distribution Width 13.2 % (11.7-14.6); White Blood Cell Count 5.84 k/cumm (4.4-10.8)
--- NOTE | 2019-03-11 07:12 | PHARADMIT ---
Admission Pharmacy Clinical Review hypercarbic respiratory acidosis, metabolic encephalolitis Code Status Full Code Current Weight wgt- 105.2 kg Renally Cleared and Narrow Therapeutic Index Meds CrCl~ 47.4 mL/min Meds -OK QTc Value / Action Taken QTc-479 (Paxil, Prilosec, Nortriptyline) BP Control, Fever BP- 100/63 Tmax- 37.2C Electrolytes reviewed Na- 138 K+5.2 DVT Prophylaxis Heparin SC, ASA Opiate Usage / Scheduled Bowel Regimen Ordered Yes Yes Plt/SCr for Heparin / Enoxaparin Plts-217 SCr-1.32 INR for Warfarin na H/H stable, WBC/Bands H&H- 13.3/41.7 WBC- 11.02 Antibiotic appropriateness none Cultures and Sensitivities none Surgical ABX d/c within 24 hr na DM control / Insulin Dosing BG-93 [id number]-2.0% Aspart Heart Failure (Check EF%) (REEMA's, B-Block, Diuretics) none IV to PO Switch No Home Meds Reviewed Yes Home Meds Not Ordered Diazepam,Clonazepam,Lasix, Glipizide, Toradol, Lamictal, Lisinopril, MagOx, Metformin, Toprol-XL, Naprosyn, Naratriptan, VCompazine,B-2, Crestor, Spironolactone, Teraconaole, Valtrex, Viibryd,B-12/FA Comments [employer]
[2019-03-11 08:40] LABS: Anion Gap 8.1 mmol/L (3-11); BUN 10 mg/dL (7-18); CO2 26.9 mmol/L (21.0-32.0); CREATININE 0.74 mg/dL (0.55-1.02); Calcium 8.3 mg/dL (8.5-10.1); Chloride 104 mmol/L (98-107); Glucose 136 mg/dL (70-100); Potassium 4.6 mmol/L (3.5-5.1); Sodium 139 mmol/L (136-145)
[2019-03-11] MEDS: Insulin Aspart 300 UNITS/3 ML PEN SC ×4 (08:42→12:03)
[2019-03-11] MEDS: Pregabalin 100 MG CAP PO (08:43)
[2019-03-11] MEDS: HYDROmorphone 2 MG TAB PO (08:43)
[2019-03-11] MEDS: Aspirin E.C. 81 MG TABEC PO (08:43)
[2019-03-11] MEDS: Magnesium Oxide 400 MG TAB 800 MG PO (08:43)
[2019-03-11] MEDS: SITagliptin 100 MG TAB PO (08:43)
[2019-03-11] MEDS: PARoxetine 20 MG TAB 40 MG PO (08:43)
--- NOTE | 2019-03-11 08:59 | PDOC.CMIN ---
Care Management Initial Assess REASON FOR HOSPITALIZATION:: change in mental status due to metabol;ic encephalopathy and hypercarbia due to polypharmacy. PAST MEDICAL HISTORY/PAST SURGICAL HISTORY:: Medical: anxiety, CAD, cardiomyopathy, carpal tunnel syndrome, chronic pain syndrome dysfunctional uterine bleeding, depression, DM2, fatty liver, frequent headaches, hepatomegaly, hyperlipidemia, lactose intolerance, obesity, polycystic ovaries, splenomegaly, tachycardia. Surgical: H/O , H/O back surgery. PREVIOUS FUNCTIONAL STATUS/SOCIAL/FAMILY SUPPORTS:: Most recently she has been living at the [facility]. Otherwise, she lives in her own apartment in [facility] with her 18 yo da, 8 yo da and adult son. She is followed by [facility]. They have been adjusting her medications with her, but she does own med management. She has been on disability since 2008, is independent at baseline, manages own ADL's and drives. CURRENT FUNCTIONAL STATUS:: She is sitting on side of bed when CM enters. She easily engages in discussion re plans, stating that she will be going back to her own home and not returning to the Care Bed except to obtain her belongings. She states she has spoken with the Care [facility] staff. ADVANCE DIRECTIVES:: Does not have document but was receptive to information which was given. Has patient been provided with information about the portal?: Yes Did the patient sign up for the portal?: No CODE STATUS:: Full Code INSURANCE COVERAGE / FINANCIAL ISSUES:: Medicare. Medicaid CURRENT HOME/COMMUNITY SERVICES/EQUIPMENT:: Currently receives services through [facility]. States that Mana Augustine NP, Karuna Crespo for therapy. No equipment used. PRIMARY CARE PHYSICIAN:: Edie Ellis MD POTENTIAL DISCHARGE NEEDS:: Will need follow-up with [facility] and PCP. Already has appts with Richy for later this week. PATIENT/FAMILY EDUCATION NEEDS:: Review d/c instructions re meds and activity levels. Discuss Ask me Now questions. ANTICIPATED BARRIERS TO DISCHARGE:: none identified TRANSPORTATION:: via car with sonMicheal. PLAN:: d/c home today as per FLIGHT TEST SUPERVISOR with continued follow-up at [facility].
--- NOTE | 2019-03-11 12:47 | INITIAL_ITS ---
Care Management Initial Assess REASON FOR HOSPITALIZATION:: change in mental status due to metabol;ic encephalopathy and hypercarbia due to polypharmacy. PAST MEDICAL HISTORY/PAST SURGICAL HISTORY:: Medical: anxiety, CAD, cardiomyopathy, carpal tunnel syndrome, chronic pain syndrome dysfunctional uterine bleeding, depression, DM2, fatty liver, frequent headaches, hepatomegaly, hyperlipidemia, lactose intolerance, obesity, polycystic ovaries, splenomegaly, tachycardia. Surgical: H/O , H/O back surgery. PREVIOUS FUNCTIONAL STATUS/SOCIAL/FAMILY SUPPORTS:: Most recently she has been living at the Care [facility]. Otherwise, she lives in her own apartment in [facility] with her 18 yo da, 8 yo da and adult son. She is followed by [facility]. They have been adjusting her medications with her, but she does own med management. She has been on disability since 2008, is independent at baseline, manages own ADL's and drives. CURRENT FUNCTIONAL STATUS:: She is sitting on side of bed when CM enters. She easily engages in discussion re plans, stating that she will be going back to her own home and not returning to the Care [facility] except to obtain her belongings. She states she has spoken with the Care Bed staff. ADVANCE DIRECTIVES:: Does not have document but was receptive to information which was given. Has patient been provided with information about the portal?: Yes Did the patient sign up for the portal?: No CODE STATUS:: Full Code INSURANCE COVERAGE / FINANCIAL ISSUES:: Medicare. Medicaid CURRENT HOME/COMMUNITY SERVICES/EQUIPMENT:: Currently receives services through [facility]. States that Mana Augustine NP, [facility]una Crespo for therapy. No equipment used. PRIMARY CARE PHYSICIAN:: Eide Ellis MD POTENTIAL DISCHARGE NEEDS:: Will need follow-up with [facility] and PCP. Already has appts with Richy for later this week. PATIENT/FAMILY EDUCATION NEEDS:: Review d/c instructions re meds and activity levels. Discuss Ask me Now questions. ANTICIPATED BARRIERS TO DISCHARGE:: none identified TRANSPORTATION:: via car with sonMicheal. PLAN:: d/c home today as per MANAGEMENT RETAIL INTERN with continued follow-up at [facility].
--- NOTE | 2019-03-11 12:47 | PDOC.CMDIS ---
LACE Index Scoring Tool - Questions: Length of Stay (in days): 2 Acuity (Admit via E.D.?): Yes Comorbidities: Diabetes w/o Complication E.D. Visits: 5 - Answers: Total Score: 10 Risk of Readmission: High Risk Care Management Discharge Reason for Hospitalization: change in mental status due to metabol;ic encephalopathy and hypercarbia due to polypharmacy. Discharge Plan: She is being discharged home to her family instead of returning to the Care Bed. Her son is transporting her. ADY has spoken with Mana Augustine BOAT DRIVER at [facility] re plan and she supports decision for Jammie to go home. She has follow-up appt scheduled with her later this week. Patient/Family Education Needs: RN to review d/c instructions re meds and activity levels. Reviewed Ask me Now and Jammie is aware of reason for hospitalization. - MH Services (Omit if N/A) Current MH Services: [facility] (resuming current services at [facility])
--- NOTE | 2019-03-11 12:54 | CMDISCH_ITS ---
LACE Index Scoring Tool - Questions: Length of Stay (in days): 2 Acuity (Admit via E.D.?): Yes Comorbidities: Diabetes w/o Complication E.D. Visits: 5 - Answers: Total Score: 10 Risk of Readmission: High Risk Care Management Discharge Reason for Hospitalization: change in mental status due to metabol;ic encephalopathy and hypercarbia due to polypharmacy. Discharge Plan: She is being discharged home to her family instead of returning to the Care Bed. Her son is transporting her. CM has spoken with Mana Israel on WEALTH MANAGEMENT CONSULTANT at [facility] re plan and she supports decision for Jammie to go home. She has follow-up appt scheduled with her later this week. Patient/Family Education Needs: RN to review d/c instructions re meds and activity levels. Reviewed Ask me Now and Jammie is aware of reason for hospitalization. - MH Services (Omit if N/A) Current MH Services: [facility] (resuming current services at [facility])
--- NOTE | 2019-03-11 12:58 | DSE_ITS ---
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 Course Hospital Course: Jammie Gottlieb is a very pleasant 43 year old female with a past medical history significant for bipolar disorder, suicidal ideation, DM type 2, chronic pain syndrome, post cardiomyopathy who was recently hospitalized at [facility] 02/03- 02/04/2019 for acute mental status change secondary to polypharmacy use and RLL pneumonia. She has since been residing at at a [facility] bed in [place], [place]. She presented to the ED on 03/09/19 with reports of chest pain and dyspnea. Upon arrival she underwent routine labs and EKG. EKG demonstrated sinus tachycardia at 103 bpm w/ diffusely decreased voltage across all leads but no acute ST-T changes and her EKG was essentially unchanged from January 2019. Labs were remarkable for VBG that demonstrated respiratory acidosis w/ PCO2 of 60 and pH of 7.30. Her CMP, TSH and troponin and BNP and ammonia level were all normal. Her CBC showed minimal leukocytosis of 11,000 but no anemia. Urine drug screen was positive for opiates (she is on dilaudid for pain management) and for benzodiazepines (she was taking clonazepam and diazepam), and positive for tricyclic antidepressants (she is on nortriptyline). She underwent CTA of her chest and this showed no large PE in the main pulmonary artery trunk nor in the right and left pulmonary arteries or interlobar artery. While she was in the ED, she became somnolent and underwent CT of the head which was negative. Narcan was given but she had really no response to this in terms of improvement in her somnolent state. She was placed on BiPAP with improvement in her mentation. She was admitted to the med/surg floor for medication adjustment. On admission, she reported that she had recently been started on Viibryd, given that this was a new medication, it was held. Her dilaudid dose was decreased, she was provided with heat for her back pain. She was also noted to have an acute kidney injury and takes both naproxen and toradol. The naproxen and toradol were held and she received IV fluid hydration with improvement in her renal function. The naproxen was restarted, the toradol was held at the time of discharge. Jammie had an echocardiogram while she was in the hospital as she has a history of post cardiomyopathy. Her echo showed an LVEF of 60% with mild mitral regurgitation. Her blood pressure was low, with systolic in the 90s, her heart rate was in the 80s. Her metoprolol and lisinopril were held and will remain on hold at discharge as she has a follow up appointment scheduled with cardiology for 03/15 (4 days). She will discuss these medications with cardiology. Jammie is also scheduled to follow up with Mental health in 6 days (03/17) and w ith her PCP in 2 weeks. She has been staying at the [facility] bed and has been medically cleared to return there with medication changes. Home Meds and New Rx's Prescriptions: Continued glipizide 5 MG tablet extended release 24hr 10 mg PO BID RF: 0 naproxen 250 MG tablet 500 mg PO BID RF: 0 vitamin B75-jgyup acid 1 EACH tablet 1 ea PO DAILY RF: 0 rosuvastatin [Crestor] 5 MG tablet 10 mg PO QPM RF: 0 albuterol sulfate 8.5 GM HFA aerosol inhaler 2 puff Inhalation Q4H PRN PRNRF: 0 naratriptan 2.5 MG tablet 2.5 mg PO Q2H PRN PRNRF: 0 aspirin [Aspir-Low] 81 MG tablet,delayed release (DR/EC) 81 mg PO DAILY RF: 0 metformin 500 MG tablet extended release 24 hr 1,000 mg PO BID RF: 0 riboflavin (vitamin B2) [Vitamin B-2] 50 MG tablet 200 mg PO BID RF: 0 Lyrica 75 MG capsule 100 mg PO TID RF: 0 Bydureon 2 mg/0.65 mL Pen Injector 2 mg subcut QWEEK RF: 0 aripiprazole [Abilify] 5 mg Tablet 10 mg PO HS RF: 0 lamotrigine [Lamictal] 25 mg Tablet, Chewable Dispersible 50 mg PO HS RF: 0 ondansetron HCl 4 MG tablet 4 mg PO Q8H PRNRF: 0 levothyroxine [Synthroid] 25 MCG tablet 50 mcg PO HS RF: 0 nortriptyline 10 MG capsule 20 mg PO HS RF: 0 Januvia 50 MG tablet 100 mg PO DAILY RF: 0 magnesium oxide 400 MG tablet 800 mg PO BID RF: 0 furosemide 20 mg Tablet 20 mg PO DAILY RF: 0 paroxetine HCl 40 mg Tablet 40 mg PO DAILY RF: 0 omeprazole 20 mg Capsule,Delayed Release(Dr/Ec) 20 mg PO DAILY RF: 0 prochlorperazine maleate 10 mg Tablet 10 mg PO PRN PRNRF: 0 valacyclovir 1 gram Tablet 2,000 mg PO Q12H RF: 0 albuterol sulfate [Ventolin HFA] 90 mcg/actuation Hfa Aerosol Inhaler 2 puff INHALATION QID PRNRF: 0 Narcan 4 mg/actuation [place],Non-Aerosol 1 spray INTRANASAL ONCE PRNRF: 0 clonazepam 1 mg Tablet 1 mg PO BID RF: 0 Changed hydromorphone [Dilaudid] 2 MG tablet 2 mg PO BID Qty: 0 RF: 0 Discontinued spironolactone 25 mg tablet 12.5 mg PO DAILY RF: 0 metoprolol succinate 50 MG tablet extended release 24 hr 150 mg PO HS Qty: 225 RF: 3 lisinopril 10 MG tablet 10 mg PO HS RF: 0 ketorolac 10 mg Tablet 10 mg PO DAILY PRNRF: 0 Viibryd 10 mg Tablet 10 mg PO DAILY RF: 0 vilazodone 40 mg Tablet 40 mg PO DAILY RF: 0 diazepam 10 mg Tablet 10 mg PO QHS PRNRF: 0 Discharge Instructions Instructions: Acute Kidney Injury (DC) Additional Instructions: You are medically cleared to return to the care bed. Resume medications as ordered with changes. Use heat for your back pain if it is helpful. Follow up with cardiology as scheduled. Follow up with mental health as scheduled. Follow up with your PCP as scheduled. Activity:: Activity as Tolerated Equipment/Supplies:: No Equipment Needed Diet:: Carb Counting Discharge Orders Discharge Orders: Discharge Order (Routine); Ordered 03/11/19 Ordered By: Moon Rodriguez Exam Narrative Exam Narrative: General: Sitting up in bed, awake and alert, in no acute distress, answers questions appropriately. HEENT: normocephalic, atraumatic, pupils equal and round, EOMI, mucous membranes moist. Neck: supple, no JVD. Respiratory: respirations even and unlabored, lung sounds clear to auscultation throughout. Cardiovascular: heart has regular rate and rhythm, no murmur appreciated. Gastrointestinal: soft, normoactive bowel sounds, no masses appreciated. Extremities: no clubbing, cyanosis or edema. Pedal pulses palpable bilaterally. DS: Data Vitals/I&O Vitals and I&O: Vital Signs Temperature 37.1 C 03/11/19 11:14 Temperature Source Tympanic 03/11/19 11:14 Pulse 87 03/11/19 11:14 Pulse Rhythm Regular 03/11/19 11:26 Pulse 97 H 03/10/19 07:40 Respiratory Rate 17 03/11/19 11:14 Respiratory Effort 03/11/19 11:26 Respiratory Depth Normal 03/11/19 11:26 Respiratory Pattern Normal 03/11/19 11:26 Blood Pressure 98/66 L 03/11/19 11:14 Blood Pressure Mean 81 03/10/19 05:37 Blood Pressure Position Sitting 03/09/19 17:40 Pulse Oximetry 98 03/11/19 11:14 Oxygen Delivery Method Room Air 03/11/19 11:14 Oxygen Flow Rate 0 03/11/19 11:14 Fraction of Inspired Oxygen (FIO2) 25 03/10/19 06:08 Pain Level 7 03/11/19 09:43 Comment 03/11/19 11:14 Intake & Output 03/10/19 03/11/19 03/11/19 23:59 11:59 23:59 Intake Total 800 / 6511.575 4240.75 / 1603.75 Output Total 900 / 2250 1650 / 1650 Balance -100 / -1124.167 -46.25 / -46.25 Weight 105.2 kg Intake: IV 560 / 785.833 993.75 / 993.75 Oral 240 / 340 610 / 610 Output: Urine 900 / 2250 1650 / 1650 Other: Urine Color Yellow Dark Laverne Urine Appearance Clear Clear Urine Odor None None Comment hat in toilet Voiding Methods Toilet Toilet Completed studies during hospitalization [Text1]: 03/09/19: CRANIAL CT (WITHOUT CONTRAST): A noncontrast cranial CT was performed. The ventricular system is normal in appearance. There is no evidence of an intracranial mass lesion. There is no evidence of a subdural or epidural hematoma. No focal areas of decreased attenuation are seen. CONCLUSION: Normal noncontrast Cranial CT. PE CHEST CT: CT angiography was performed with multi slice acquisition and multi planar and 3D reconstruction. CT angiography of the chest was performed with a bolus infusion of 100 cc's of Omnipaque 350. The lungs are predominantly clear but there is a group of small consolidative or nodular opacities of the right upper lobe laterally with nodularity measuring up to about 6 mm. in diameter. No prior chest CT available for comparison. Follow up chest CT recommended in 6 months. Tracheobronchial tree appears intact. No pleural effusion or pneumothorax. Pulmonary arteries are not ideally opacified but no central pulmonary embolus is seen. Thoracic aorta and major branches appear normal. Note is made of splenomegaly. Visualized portions of liver, adrenals and kidneys appear normal. CONCLUSION: Limited study with no gross evidence of pulmonary embolic disease in the large pulmonary arterial vessels. Incidental findings of nodular opacities right upper lobe, 6 month follow up chest CT recommended. Date of study: 03/10/2019 Transthoracic Echocardiography M-mode, complete 2D, complete spectral Doppler, and color Doppler *STUDY CONCLUSIONS* Summary: 1. Left ventricle: The cavity size was normal. The estimated ejection fraction was 60%. Diastolic parameters were normal. There was no evidence of elevated ventricular filling pressure by Doppler parameters. 2. Mitral valve: There was mild regurgitation. 3. Right ventricle: The cavity size was normal. Wall thickness was normal. Systolic function was normal. 4. Atrial septum: No defect or patent foramen ovale was identified. 5. Pulmonary arteries: Pulmonary systolic pressure was in the range of 25mm Hg to 35mm Hg. 6. Inferior vena cava: The vessel was patent and normal in size. The respirophasic diameter changes were in the normal range (greater than or equal to 50%), consistent with normal central venous pressure. Labs on day of discharge: Labs from last 24 hours 03/11/19 03/11/19 06:45 06:45 WBC 5.84 RBC 3.68 L Hgb 10.8 L D Hct 33.2 L D MCV 90.2 MCH 29.3 MCHC 32.5 RDW 13.2 Plt Count 145 MPV 11.0 Sodium 139 Potassium 4.6 Chloride 104 Carbon Dioxide 26.9 Anion Gap 8.1 BUN 10 D Creatinine 0.74 D Estimated GFR/1.73 m2 >= 60.00 Glucose 136 H Calcium 8.3 L PFSH Medical History Anxiety (Chronic) CAD (coronary artery disease) (Chronic) Cardiomyopathy (Chronic) Carpal tunnel syndrome (Chronic) Chronic pain syndrome (Chronic) DUB (dysfunctional uterine bleeding) (Chronic) Depression (Chronic) Diabetes (Chronic) Fatty liver (Chronic) Frequent headaches (Chronic) Hepatomegaly (Chronic) Hyperlipidemia (Chronic) Lactose intolerance (Chronic) Morbid obesity (Chronic) Polycystic ovaries (Chronic) Splenomegaly (Chronic) Tachycardia (Chronic) Surgical History History of section (Inactive) Previous back surgery (Inactive) Social History Smoking/Tobacco Use Status: Current every day Drug use: Never Do you feel safe at home: Yes Do you feel safe in your relationship?: Yes
--- NOTE | 2019-03-11 12:59 | NUR.NOTE ---
Nursing Note: addressed patients concern that she might not have a ride out after discharge, I told her that case mgt, would provide a ride for her
== END 2019-03-11 14:41 | disposition other institution (70) ==
LOC: ER 03-10 00:49 → MS 03-10 08:15
PROVIDERS: Nurse Practitioner; Admitting Provider Internal Medicine; Emergency Provider Student in an Organized Health Care Education/Training Program; PCP Family Medicine; Visit Provider Internal Medicine
DX: J96.02 Acute respiratory failure with hypercapnia (principal); G93.41 Metabolic encephalopathy; R06.09 Other forms of dyspnea; R07.89 Other chest pain; N17.9 Acute kidney failure, unspecified; E11.9 Type 2 diabetes mellitus without complications; I42.0 Dilated cardiomyopathy; O90.3 Peripartum cardiomyopathy; R40.0 Somnolence; E66.01 Morbid (severe) obesity due to excess calories; I95.9 Hypotension, unspecified; I05.1 Rheumatic mitral insufficiency; R91.8 Other nonspecific abnormal finding of lung field; F31.9 Bipolar disorder, unspecified; M54.5 Low back pain; G89.29 Other chronic pain; Z68.39 Body mass index [BMI] 39.0-39.9, adult; Z71.3 Dietary counseling and surveillance; Z79.84 Long term (current) use of oral hypoglycemic drugs
CPT/HCPCS: 36415; 36416; 71275; 80048; 80053; 80307; 81025; 82805; 82962; 85027; 93005; 93306; 96361; 96365; 96366; 99220; 99232; 99239; 99285; 70450; 80320; 81003; 82140; 83036; 83880; 84443; 84484; 85025; 86308; 93010; 99217; G0378; J1644; J2310; J3490

== ENCOUNTER → 2019-03-21 12:58 | Outpatient (BNVA) | payer MEDICARE, MEDICAID, SELFPAY | PROVIDERS: PCP Family Medicine; Visit Provider Student in an Organized Health Care Education/Training Program | DX: I42.8 Other cardiomyopathies (principal); Z82.49 Family history of ischemic heart disease and other diseases of the circulatory system; E11.9 Type 2 diabetes mellitus without complications; Z79.84 Long term (current) use of oral hypoglycemic drugs | CPT/HCPCS: 99204; 99215 ==

== ENCOUNTER 2019-05-16 18:46 | Outpatient (REF) | payer MEDICARE, MEDICAID, SELFPAY ==
[2019-05-16 19:31] LABS: COMMENT (LAB VIEW ONLY) 86.59 mg/dL; Microalb ug/mg Crea 7.9 ug/mg Cr
[2019-05-20 03:10] LABS: Amphetamine 742 ng/mL (Cutoff: 25); Amphetamines Interpretation Positive.; MDA (Ecstasy Metabolite) Negative ng/mL (Cutoff: 25); MDMA (Ecstasy) Negative ng/mL (Cutoff: 25); Methamphetamine Negative ng/mL (Cutoff: 25); Phentermine Negative ng/mL (Cutoff: 25); Pseudoephedrine/Ephedrine Negative ng/mL (Cutoff: 25)
== END 2019-05-16 19:06 ==
LOC: NCHCN 18:46
PROVIDERS: PCP Family Medicine; Visit Provider Family Medicine
DX: M54.5 Low back pain (principal); G89.29 Other chronic pain; F15.20 Other stimulant dependence, uncomplicated; E11.9 Type 2 diabetes mellitus without complications
CPT/HCPCS: 80324; 82043; 82570

== ENCOUNTER 2019-07-26 12:50 | Outpatient (CLI) | payer MEDICARE, MEDICAID, SELFPAY ==
--- NOTE | 2019-07-26 08:47 | DI.RAD_ITS ---
SYMPTOM/DIAGNOSIS: SHOULDER PAIN LEFT SHOULDER: There is a small calcification seen near the humeral head which could represent calcific tendinosis. There is no significant AC joint spurring. There is minimal spurring at the inferior glenoid IMPRESSION: Mild degenerative changes and calcific tendinosis. RIGHT SHOULDER: There is no significant AC joint spurring. There is minimal spurring at the inferior glenoid. The glenohumeral joint space is well maintained. No tendon or joint space calcifications are seen. IMPRESSION: Minimal degenerative changes.
--- NOTE | 2019-07-26 08:59 | DI.RAD_ITS ---
SYMPTOM/DIAGNOSIS: INITIAL EVALUATION. CERVICAL SPINE: There are small end plate osteophytes at C4-5 and C5-6, and slight disc space narrowing. The alignment appears normal. IMPRESSION: Mild degenerative changes at C4-5 and C5-6
== END 2019-07-26 13:10 ==
PROVIDERS: PCP Family Medicine; Referring Provider Family Medicine; Visit Provider Student in an Organized Health Care Education/Training Program
DX: M25.511 Pain in right shoulder (principal); M54.12 Radiculopathy, cervical region; M25.512 Pain in left shoulder; M50.321 Other cervical disc degeneration at C4-C5 level; M50.322 Other cervical disc degeneration at C5-C6 level; M75.32 Calcific tendinitis of left shoulder; M19.012 Primary osteoarthritis, left shoulder; M19.011 Primary osteoarthritis, right shoulder; M75.81 Other shoulder lesions, right shoulder; M67.912 Unspecified disorder of synovium and tendon, left shoulder; M75.51 Bursitis of right shoulder; M75.52 Bursitis of left shoulder
CPT/HCPCS: 99203; 99214; 72020; 73030

== ENCOUNTER 2019-09-15 00:55 | Outpatient (CLI) | payer MEDICARE, MEDICAID, SELFPAY ==
--- NOTE | 2019-09-15 07:58 | DI.MRI_ITS ---
EXAM: MR CERVICAL SPINE WO CLINICAL HISTORY: Radiculopathy cervical, M54.12. TECHNIQUE: Multiplanar multisequence MRI was performed. COMPARISON: No exams were available for comparison FINDINGS: Images obtained through the posterior fossa are unremarkable. No significant findings at C2-3. At C3-4 there is a right paracentral disc herniation with minimal impingement on the cord but no cord deformity. At C4-5 there is prominence of the disc osteophyte complex most prominent left paracentral but broad- based with no focal disc herniation. Minimal contour deformity of anterior cord surface at this leve l. At C5-6 there is prominence of the disc osteophyte complex left paracentral, question minimal cord im pingement but no contour deformity. At C6-7 there is marked prominence of the disc osteophyte complex broad-based left paracentral left c ontour deformity of the cord anteriorly. There may be a component of herniated disc on the left at t his site. There are no significant findings. No significant bony central canal spinal stenosis or neural foraminal stenosis at the levels examined . IMPRESSION: Multilevel disc herniations and prominence of disc osteophyte complex as described above. Please see the above discussion for findings at individual levels.
--- NOTE | 2019-09-15 07:58 | DI.MRI_ITS ---
EXAM: MR UPPER JOINT LT WO CLINICAL HISTORY: bilateral shoulder bursitis, biceps tendinosis, tendinopathy. TECHNIQUE: Multiplanar multisequence MRI was performed. COMPARISON: XR shoulder LT complete 2+V from 07/26/2019 FINDINGS: MR of the shoulder was performed according to the usual protocol. There are mild hypertrophic degene rative changes of the acromioclavicular joint. There is minimal cyst formation in the humeral head p resumably on a degenerative basis. Labrum appears somewhat effaced with no discrete labral tear iden tified on this noncontrast scan. Biceps tendon shows normal signal and biceps anchor appears intact. There is abnormal signal in distal subscapularis tendon consistent with tendinosis. No definite tear seen. There may be a tiny full-thickness anterior attachment tear of the supraspinatus and there is abnormal signal of the supraspinatus consistent with moderate tendinosis. Minimal periattachment te ars of infraspinatus may be present as well. No full-thickness or retracted rotator cuff tear seen. IMPRESSION: Findings suggesting minimal periattachment tears of supraspinatus and infraspinatus tendons. Normal biceps tendon and anchor.
== END 2019-09-15 01:15 ==
PROVIDERS: PCP Family Medicine; Visit Provider Student in an Organized Health Care Education/Training Program
DX: M75.82 Other shoulder lesions, left shoulder (principal); M75.51 Bursitis of right shoulder; M54.12 Radiculopathy, cervical region; M50.20 Other cervical disc displacement, unspecified cervical region; M25.78 Osteophyte, vertebrae
CPT/HCPCS: 72141; 73221

== ENCOUNTER 2019-09-22 20:26 | Outpatient (REF) | payer MEDICARE, MEDICAID, SELFPAY ==
[2019-09-22 20:10] LABS: HCT 41.9 % (36.0-46.0); HGB 13.7 g/dL (12.0-15.5); Mean Corp. HGB Concentration 32.7 g/dL (32.0-36.0); Mean Corpuscular Hemoglobin 28.5 pg (27.0-33.0); Mean Corpuscular Volume 87.1 fL (80-95); Mean Platelet Volume 12.3 fL (8.0-11.0); Platelet Count 226 x1000/uL (130-400); RBC 4.81 m/cumm (4.00-5.20); RBC Distribution Width 14.3 % (11.7-14.6); White Blood Cell Count 9.08 k/cumm (4.4-10.8)
[2019-09-22 20:29] LABS: Anion Gap 9.8 mmol/L (3-11); BUN 15 mg/dL (7-18); CO2 26.2 mmol/L (21.0-32.0); Calcium 8.9 mg/dL (8.5-10.1); Chloride 103 mmol/L (98-107); Glucose 134 mg/dL (70-100); Magnesium 1.7 mg/dL (1.8-2.4); Potassium 4.4 mmol/L (3.5-5.1); Sodium 139 mmol/L (136-145); TSH (W/Ref FT4) 3.32 uIU/mL (0.36-3.74)
[2019-09-22 21:00] LABS: Hemoglobin A1C 5.8 % (4.5-6.2)
== END 2019-09-22 20:46 ==
LOC: NCHCN 20:26
PROVIDERS: PCP Family Medicine; Visit Provider Family Medicine
DX: E11.9 Type 2 diabetes mellitus without complications (principal); E03.9 Hypothyroidism, unspecified; E83.42 Hypomagnesemia
CPT/HCPCS: 80048; 85027; 83036; 83735; 84443

== ENCOUNTER → 2019-09-27 13:14 | Outpatient (BNVA) | payer MEDICARE, MEDICAID, SELFPAY | PROVIDERS: PCP Family Medicine; Referring Provider Family Medicine; Visit Provider Student in an Organized Health Care Education/Training Program | DX: M54.12 Radiculopathy, cervical region; M75.122 Complete rotator cuff tear or rupture of left shoulder, not specified as traumatic; M75.52 Bursitis of left shoulder; E11.9 Type 2 diabetes mellitus without complications | CPT/HCPCS: 99214 ==

== ENCOUNTER 2019-09-30 06:09 | Day surgery (SDC) | payer MEDICARE, MEDICAID, SELFPAY ==
[2019-09-30] VITALS (9 sets, daily range): BP systolic 66–117; BP diastolic 19–72; PULSE 94–106; RESP 16–22; TEMP 36.1–36.9; O2SAT 94–97
[2019-09-30] MEDS: Lactated Ringers 1,000 ML 100 ML IV ×2 (07:14→10:54)
[2019-09-30] MEDS: Bupivacaine 0.5% Pres-Free 30 ML VIAL (07:20)
[2019-09-30] MEDS: Bupivacaine LIPOSOME/PF 133 MG/10 ML VIAL IJ (07:20)
--- NOTE | 2019-09-30 07:32 | ROE_ITS ---
Date of service: 09/30/19 Time of Service: 10:41 Operative Note Operative Note DATE OF PROCEDURE: 09/30/19 PRE-OP DIAGNOSIS: Left: 1. Rotator cuff tear 2. LHB tendinopathy 3. Bursitis 4. Impingement POST-OP DIAGNOSIS: other Left: 1. Rotator cuff tear- partial upper border subscapularis and bursal sided supraspinatus 2. LHB tendinopathy 3. Bursitis 4. Impingement 5. Calcific tendinitis 6. Anterior and superior labral tearing PROCEDURE: Left: 1. Extensive debridement, CPT# 55477. This involved using arthroscopic hand instruments, power instruments, and radiofrequency instruments to debride areas of labral tearing, synovitis, and chondromalacia within the glenohumeral joint anteriorly and posteriorly. 2. Arthroscopic biceps tenodesis, CPT# 10118. This involved arthroscopically reattaching the long head of the biceps tendon to the proximal humerus at the superior margin of the bicipital groove at the correct tension. 3. Subacromial decompression with partial acromioplasty, CPT# 06273. This involved using arthroscopic power instruments and a radiofrequency wand to complete a bursectomy and remove bone spurs on the undersurface of the acromion. 4. Rotator cuff repair, CPT# 18551. This involved repair of the subscapularis and supraspinatus using anchors and sutures to reattach the rotator cuff back to the footprint of the lesser and greater tuberosity. The welder assistant was medically required in order to help assist in techniques above, which require positioning the arm, holding the arthroscope, and manipulating 2 to 4 instruments and sutures at the same time. This cannot be done without the help of an experienced welder assistant. SURGEON: Tee Berg NATIONAL SALES ASSOCIATE: Ngoc Friedman ANESTHESIA: GETA and regional ESTIMATED BLOOD LOSS: 25 PATHOLOGY: none sent COMPLICATIONS: None Patient was transported to: PACU Patient's condition: stable Implants: Arthrex: 4.75mm SwiveLocks x 2 Indications: The patient was diagnosed with the above conditions and appropriately indicated for surgical intervention. Please see complete medical record for details. Findings: Exam under anesthesia: Full symmetric range of motion, no instability Glenohumeral joint: Extensive synovitis anteriorly superiorly and posteriorly. Biceps sling disrupted. Medial subluxation of the biceps and split tearing and tendinitis. Anterior and superior labral tearing. Superior margin subscapularis tear. Small articular sided supraspinatus fraying. Subacromial space: Extensive bursitis and large subacromial bone spur. 1 x 2 cm area of calcific tendinitis deposition and supraspinatus centrally over the greater tuberosity. Procedure Description: The patient was taken to the operating room and transferred to the operating room table. General anesthesia was induced. While under anesthesia, bilateral shoulders were examined. The patient was positioned in the beachchair position. All bony prominences were well-padded. Preoperative antibiotics were administered. The shoulder was prepped and draped in the usual sterile fashion. The correct patient, procedure, and side of the procedure were all verified prior to incision. Starting through the posterior portal a standard complete diagnostic arthroscopy was performed of the glenohumeral joint including inspection of the long head of the biceps, anterior and superior labrum, subscapularis tendon, supraspinatus and infraspinatus tendons, and axillary recess. The glenoid and humeral head cartilage as well as the posterior labrum were inspected from an anterior viewing portal. Significant findings noted above. A Gale cannula was inserted into the anterior portal. Using a loop and tach arthroscopic method, a fiber link suture was passed around the biceps tendon and then through the tendon creating secure fixation. The biceps tendon was amputated from the superior labrum using arthroscopic scissors. A thickened middle glenohumeral ligament was also released using arthroscopic scissors to expose better the subscapularis. The biceps sling was debrided exposing a superior margin subscapularis tear with exposed lesser tuberosity. The subscapularis was retracted off of the lesser tuberosity. The lesser tuberosity footprint was prepared using hand and power instruments for tendon healing. The arm was positioned in neutral. Through the anterior portal a BirdBeak penetrating suture passer was used to pass another fiber link through the anterior margin of the subscapularis and retrieve the looped end and secure fixation and cinch mode. The tap was used to localize placement of the anchor. Both sutures - 1 from the biceps and 1 from the subscapularis - were passed through the anchor eyelet and the anchor was brought down to the bone with the sutures tensioned appropriately. The arm was brought through full external rotation demonstrating no restricted motion from the repair and secure fixation of both tendons and anchor down to bone. The arthroscope was inserted in the anterior Gale cannula and power and hand instruments through the posterior portal to debride areas of synovitis superiorly and posteriorly. Starting through the posterior portal the arthroscope was directed into the suba cromial space. A lateral 50 yard line lateral portal was created. A combination of power instruments and a radiofrequency ablator were used to debride bursitis anteriorly, posteriorly, and laterally as well as expose and smooth bone spurring on the undersurface of the acromion. The coracoacromial ligament was released. The bursectomy was completed viewing laterally and working from posteriorly and the rotator cuff was thoroughly inspected with findings noted above. After a thorough bursectomy, the central area of calcific tendinitis was identified in the supraspinatus tendon laterally over the greater tuberosity. This area was debrided completely of calcific deposition revealing a smal but probably 50% thickness supraspinatus tear may be 1 x 2 cm in area. Given the surrounding tissue quality and the fact that there was a small articular sided tear the decision was made to proceed with repair. The Gale cannula was moved from anterior portal to the lateral portal. 2 sets of #2 FiberWire were passed using a lasso across the tear region from posterior to anterior and brought out a lateral cannula. The punch was used to localize placement of the lateral footprint anchor. Both sets of repair sutures were securely fixated really to this anchor. The arm was taken through full range of motion and the repair was found to be secure and stable. The shoulder was drained of arthroscopic fluid. All portal sites were copiously irrigated. These incisions were closed using 3-0 nylon in a portal [id number] fashion, covered with Xeroform, dry gauze, and ABDs. The dressings were covered and secured with foam tape. The operative extremity was placed into a sling for immobilization. The patient awoke from anesthesia without complication and was transferred to the recovery room in a stable condition.
[2019-09-30] MEDS: CLINDAMYCIN 900 MG/50 ML BAG 50 MG IVPB (07:52)
[2019-09-30] MEDS: EPINEPHrine 30 MG/30 ML VIAL (10:16)
--- NOTE | 2019-09-30 10:41 | PDOC.DSDIS_ITS ---
Discharge Plan Disposition Patient Disposition: HOME Condition: Stable Discharge Details Reason For Visit: RCT,LHB TENDINOP,BURSITIS,IMPINGMENT Attending Provider: Tee Berg Primary Care Provider: Edie Ellis Home Meds and New Rx's Prescriptions: New naproxen 250 mg tablet 250 mg PO BID PRN (Reason: pain, moderate) Qty: 30 RF: 0 aspirin 81 mg tablet,delayed release (DR/EC) 81 mg PO DAILY Qty: 14 RF: 0 oxycodone 5 mg tablet 5 mg PO Q4H PRN (Reason: pain, severe) Qty: 9 RF: 0 Continued metoprolol succinate 50 mg tablet extended release 24 hr 50 mg PO DAILY Qty: 30 RF: 11 glipizide 5 MG tablet extended release 24hr 10 mg PO BID RF: 0 naproxen 250 MG tablet 500 mg PO BID RF: 0 vitamin O46-pmlup acid 1 EACH tablet 1 ea PO DAILY RF: 0 rosuvastatin [Crestor] 5 MG tablet 10 mg PO QPM RF: 0 albuterol sulfate 8.5 GM HFA aerosol inhaler 2 puff Inhalation Q4H PRN PRNRF: 0 naratriptan 2.5 MG tablet 2.5 mg PO Q2H PRN PRNRF: 0 aspirin [Aspir-Low] 81 MG tablet,delayed release (DR/EC) 81 mg PO DAILY RF: 0 metformin 500 MG tablet extended release 24 hr 1,000 mg PO BID RF: 0 riboflavin (vitamin B2) [Vitamin B-2] 50 MG tablet 200 mg PO BID RF: 0 pregabalin [Lyrica] 75 MG capsule 100 mg PO TID RF: 0 Bydureon 2 mg/0.65 mL Pen Injector 2 mg subcut QWEEK RF: 0 ondansetron HCl 4 MG tablet 4 mg PO Q8H PRNRF: 0 levothyroxine [Synthroid] 25 MCG tablet 50 mcg PO HS RF: 0 Januvia 50 MG tablet 100 mg PO DAILY RF: 0 magnesium oxide 400 MG tablet 800 mg PO BID RF: 0 furosemide 20 mg Tablet 20 mg PO DAILY RF: 0 omeprazole 20 mg Capsule,Delayed Release(Dr/Ec) 20 mg PO DAILY RF: 0 prochlorperazine maleate 10 mg Tablet 10 mg PO PRN PRNRF: 0 albuterol sulfate [Ventolin HFA] 90 mcg/actuation Hfa Aerosol Inhaler 2 puff INHALATION QID PRNRF: 0 Narcan 4 mg/actuation Combs,Non-Aerosol 1 spray INTRANASAL ONCE PRNRF: 0 clonazepam 1 mg Tablet 1 mg PO BID RF: 0 hydromorphone [Dilaudid] 2 MG tablet 2 mg PO BID Qty: 0 RF: 0 paroxetine HCl 40 mg tablet 20 mg PO DAILY RF: 0 valacyclovir 1 gram tablet 2,000 mg PO Q12H PRNRF: 0 ketorolac 10 mg Tablet 10 mg PO TID PRNRF: 0 lisinopril 10 mg Tablet 10 mg PO DAILY RF: 0 lamotrigine 100 mg Tablet Extended Release 24hr 100 mg PO HS RF: 0 Discharge Instructions Additional Instructions: Surgery: Shoulder arthroscopy with rotator cuff repair and biceps tenodesis Activity: You should keep your arm at your side in the strike zone at all times except for physical therapy. Do not try to lift or raise your arm using your own muscles. You should use the sling whenever you are out of the house. You may have to adjust the abduction pillow or remove it for comfort. At home it is best to remove the sling and rest the arm on a pillow at your side or support the operative side with your other hand. You may allow the arm to dangle at your side. A physical therapy prescription will be provided separately at your first follow-up visit. Important to fully move elbow, wrist, and hand every day to prevent stiffness. May use left arm for activities of daily living. Prescriptions: Aspirin 81 mg take 1 daily to prevent a blood clot Naproxen 250 mg take 1-2 every 12 hours with a meal as needed for moderate pain Oxycodone 5 mg take 1-2 every 4-6 hours as needed for severe pain You may use myik-gkk-pmcdwna Tylenol (acetaminophen) as needed for mild pain. These pain medications may be taken all at once or in different combinations as needed. Also, recommend Colace (docusate) as a stool softener as surgery and pain medicine cause constipation. Dressings: Leave dressing in place for 2-3 days. May then remove and leave open to air or cover incisions with Band-Aids. Sutures will be removed in the office. May shower after 5 days. Follow-up: 10-[address] Berg Please call the office during business hours with any questions or concerns. Let us know right away if you develop any redness, drainage, fevers, chest pain, or trouble breathing. Do not drink alcohol or drive for at least 24 hours after anesthesia. Referrals: Tee Berg MD [ [facility] STAFF PHYSICIAN] - Discharge Orders Discharge Orders: Discharge Order (Routine); Ordered 09/30/19 Ordered By: Tee Berg DS: Diagnosis Discharge Diagnosis (1) Tendinitis of long head of biceps brachii of left shoulder: Status: Acute (2) Left rotator cuff tear: Status: Acute (3) Bursitis of left shoulder: Status: Acute (4) Impingement syndrome of left shoulder: Status: Acute
[2019-09-30] MEDS: Normal Saline Flush 10 ML SYR IV (11:17)
[2019-09-30] MEDS: HYDROmorphone 2 MG/ML VIAL IVP (11:17)
== END 2019-09-30 13:25 | disposition home or self-care (01) ==
PROVIDERS: PCP Family Medicine; Visit Provider Student in an Organized Health Care Education/Training Program
PROC: (CPT 29805; principal; 2019-09-30 07:30)
PROC: (CPT 23430; 2019-09-30 07:30)
DX: M75.22 Bicipital tendinitis, left shoulder (principal); M75.112 Incomplete rotator cuff tear or rupture of left shoulder, not specified as traumatic; M75.52 Bursitis of left shoulder; M75.42 Impingement syndrome of left shoulder; M75.32 Calcific tendinitis of left shoulder; M65.812 Other synovitis and tenosynovitis, left shoulder; M75.82 Other shoulder lesions, left shoulder; I42.0 Dilated cardiomyopathy; E11.9 Type 2 diabetes mellitus without complications; Z88.0 Allergy status to penicillin; F17.210 Nicotine dependence, cigarettes, uncomplicated; G89.18 Other acute postprocedural pain
CPT/HCPCS: 29827; 29828; 29823; 29826; 76942; 81025; J0131; J1100; J1885; J2250; J2405; J3010; L3670

== ENCOUNTER → 2019-10-11 14:58 | Outpatient (BNVA) | payer MEDICARE, MEDICAID, SELFPAY | PROVIDERS: PCP Family Medicine; Referring Provider Family Medicine; Visit Provider Student in an Organized Health Care Education/Training Program | DX: Z47.89 Encounter for other orthopedic aftercare (principal); M75.52 Bursitis of left shoulder; M75.122 Complete rotator cuff tear or rupture of left shoulder, not specified as traumatic; M75.22 Bicipital tendinitis, left shoulder ==

== ENCOUNTER → 2019-10-25 11:07 | Outpatient (BNVA) | payer MEDICARE, MEDICAID, SELFPAY | PROVIDERS: PCP Family Medicine; Referring Provider Family Medicine; Visit Provider Student in an Organized Health Care Education/Training Program | DX: M75.52 Bursitis of left shoulder (principal); M75.122 Complete rotator cuff tear or rupture of left shoulder, not specified as traumatic; M75.22 Bicipital tendinitis, left shoulder; M75.42 Impingement syndrome of left shoulder; E11.9 Type 2 diabetes mellitus without complications ==

== ENCOUNTER 2019-12-07 01:02 | Outpatient (CLI) | payer MEDICARE, MEDICAID, SELFPAY ==
--- NOTE | 2019-12-07 07:40 | DI.MAMMO_ITS ---
EXAM: MG MAMMO SCREENING CLINICAL HISTORY: SCREENING, [facility], Z00.00. TECHNIQUE: Bilateral full field digital CC and MLO mammographic images were obtained with 3D tomosyn thesis and utilizing computer aided detection (CAD). COMPARISON: Available for comparison. FINDINGS: Masses/Architectural Distortion: None seen. Microcalcifications: No suspicious pleomorphic-type are seen. Skin Thickening/Nipple Retraction: None. IMPRESSION: 1. No significant interval change with no specific features of malignancy noted. 2. Unless there is more urgent need, screening mammography is recommended, as per [place] [employer] guidelines. ACR BI-RAD Category- 1 Negative Breast Density - Category B - Scattered areas of fibroglandular density A negative radiographic report should not delay biopsy if a dominant or clinically suspicious mass is present. Up to ten percent of cancers are not identified on mammography. A negative report may reinforce clinical impression. Adenosis and dense breasts may obscure an underlying neoplasm. False positive reports average 6 to 10%. Patient will receive a letter notifying them of these results.
== END 2019-12-07 01:22 ==
PROVIDERS: PCP Family Medicine; Visit Provider Family Medicine
DX: Z12.31 Encounter for screening mammogram for malignant neoplasm of breast (principal)
CPT/HCPCS: 77063; 77067

== ENCOUNTER 2019-12-15 12:48 | Outpatient (REF) | payer MEDICARE, MEDICAID, SELFPAY ==
[2019-12-15 15:03] LABS: HCT 38.9 % (36.0-46.0); HGB 12.4 g/dL (12.0-15.5); Mean Corp. HGB Concentration 31.9 g/dL (32.0-36.0); Mean Corpuscular Hemoglobin 27.5 pg (27.0-33.0); Mean Corpuscular Volume 86.3 fL (80-95); Platelet Count 169 x1000/uL (130-400); RBC 4.51 m/cumm (4.00-5.20); RBC Distribution Width 14.6 % (11.7-14.6); White Blood Cell Count 8.15 k/cumm (4.4-10.8)
[2019-12-15 15:05] LABS: ALT 26 U/L (14-59); AST 22 U/L (15-37); Albumin 3.6 g/dL (3.4-5.0); Alkaline Phosphatase 61 U/L (46-116); Anion Gap 10.2 mmol/L (3-11); BUN 15 mg/dL (7-18); Bilirubin, Total 0.4 mg/dL (0.2-1.0); CO2 27.8 mmol/L (21.0-32.0); CREATININE 0.69 mg/dL (0.55-1.02); Calcium 8.7 mg/dL (8.5-10.1); Chloride 101 mmol/L (98-107); Glucose 119 mg/dL (74-106); Potassium 4.2 mmol/L (3.5-5.1); Sodium 139 mmol/L (136-145); Total Protein 6.4 g/dL (6.4-8.2)
[2019-12-15 15:40] LABS: Hemoglobin A1C 6.3 % (3.8-5.6)
[2019-12-16 10:28] LABS: FSH 2.4 mIU/mL (See Note); LH 2.3 mIU/mL (See Note)
== END 2019-12-15 13:08 ==
LOC: LBN 12:48
PROVIDERS: PCP Family Medicine; Visit Provider Family Medicine
DX: N95.1 Menopausal and female climacteric states (principal); E11.9 Type 2 diabetes mellitus without complications; K76.0 Fatty (change of) liver, not elsewhere classified
CPT/HCPCS: 80053; 85027; 83001; 83002; 83036

== ENCOUNTER 2019-12-22 10:59 | Emergency (ER) | payer MEDICARE, MEDICAID, SELFPAY ==
[2019-12-22 11:08] VITALS: BP 117/76; PULSE 90; RESP 18; TEMP 36.8; O2SAT 93
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
--- NOTE | 2019-12-22 12:06 | NUR.NOTE ---
Assumed care of pt. Report from Sandra. Pt sitting on bed with son. Stress ball in hand. Aware of BS of 88. States knows when sugar is low, feels well now. Aware she should eat soon. Labs drawn. Awaiting BETY jaeger.
[2019-12-22 12:31] LABS: TSH (W/Ref FT4) 1.01 uIU/mL (0.36-3.74)
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
[2019-12-22 13:55] VITALS: BP 111/69; PULSE 84; RESP 18; TEMP 36.4; O2SAT 98
--- NOTE | 2019-12-22 14:00 | NUR.NOTE ---
Nursing Note: order food for patient, [id number]
--- NOTE | 2019-12-22 14:58 | NUR.NOTE ---
pt resting in room with eyes closed. awaiting dispo.
--- NOTE | 2019-12-22 16:35 | NUR.NOTE ---
Pt sleeping on back. Even, unlabored resp, RR 15.
--- NOTE | 2019-12-22 17:09 | PDOC.MHCN_ITS ---
Date of service: 12/22/19 Time of Service: 17:10 Mental Health Crisis Note Presenting Issue How did you arrive at the ED and why did you come: Patient arrives to ED seeking crisis bed placement in relation to worsening symptoms of depression and anxiety. Precipitating Factors Patient is a 44yo female with history of PTSD, r/o Bipolar D/O NOS, anxiety and depression. She is currently seeking short-term crisis stabilization in order to help worsening issues with decompensation that have been occurring for the past year. Please refer to associated documentation for more details. She denies current SI / Hi, intent or plan. Disposition BEHAVIOR: Appropriate EYE CONTACT: Patient maintains good eye contact. MOOD: Euthymic AFFECT: Congruent to mood APPETITE: No reported issues SLEEP(trouble falling/staying asleep: No reported issues Plan In-patient placement is not warranted at this time as patient does not present as an imminent danger to herself or others. This clinician has faxed information or confirmed capacity status at appropriate placement sites and has attempted to secure placement tonight without success. The patient will be discharged from ED and a follow-up appointment has been scheduled for 12/23 at [facility]. Crisis placement is likely pending documentation review. The patient's son is present along with the son;s girlfriend. They have confirmed that they are able to secure the environment and provide supervision tonight. The patient reports no issues with returning home and following up in the morning. Signature Clinician's Name/Title: Alfredo Garcia, [facility] Emergency Steam Bo[employer] Fireman
--- NOTE | 2019-12-22 17:25 | NUR.NOTE ---
Discharge instructions reviewed with verbal understanding. aware to f/u with [facility] in am. Pt reports she feels safe to go home. All belongings returned to pt.
[2019-12-22 17:28] VITALS: BP 115/72; PULSE 90; RESP 16; TEMP 36.2; O2SAT 95
== END 2019-12-22 17:29 | disposition home or self-care (01) ==
PROVIDERS: Emergency Provider Student in an Organized Health Care Education/Training Program; PCP Family Medicine
DX: F41.8 Other specified anxiety disorders (principal); R44.1 Visual hallucinations; E11.9 Type 2 diabetes mellitus without complications; Z79.84 Long term (current) use of oral hypoglycemic drugs
CPT/HCPCS: 36415; 36416; 80053; 82962; 85027; 99283; 84443

== ENCOUNTER → 2019-12-27 14:57 | Outpatient (BNVA) | payer MEDICARE, MEDICAID, SELFPAY | PROVIDERS: PCP Family Medicine; Referring Provider Family Medicine; Visit Provider Student in an Organized Health Care Education/Training Program | DX: Z47.89 Encounter for other orthopedic aftercare (principal); M75.52 Bursitis of left shoulder; M75.22 Bicipital tendinitis, left shoulder; M75.122 Complete rotator cuff tear or rupture of left shoulder, not specified as traumatic; M75.42 Impingement syndrome of left shoulder | CPT/HCPCS: 99213 ==

== ENCOUNTER 2020-02-29 17:21 | Outpatient (CLI) | payer MEDICARE, MEDICAID, SELFPAY ==
[2020-03-03 04:23] LABS: SARS-CoV-2 RNA Undetected (Undetected); SARS-CoV-2 Specimen Source Nasopharynx
== END 2020-02-29 17:41 ==
PROVIDERS: PCP Family Medicine; Visit Provider Nurse Practitioner Family
DX: J06.9 Acute upper respiratory infection, unspecified (principal)
CPT/HCPCS: U0003

== ENCOUNTER → 2020-03-27 11:13 | Outpatient (BNVA) | payer MEDICARE, MEDICAID, SELFPAY | PROVIDERS: PCP Family Medicine; Referring Provider Family Medicine; Visit Provider Internal Medicine Cardiovascular Disease | DX: R00.2 Palpitations (principal); I25.10 Atherosclerotic heart disease of native coronary artery without angina pectoris; I42.9 Cardiomyopathy, unspecified; E11.9 Type 2 diabetes mellitus without complications | CPT/HCPCS: 99442; 99213 ==

== ENCOUNTER → 2020-05-09 10:19 | Outpatient (BNVA) | payer MEDICARE, MEDICAID, SELFPAY | PROVIDERS: PCP Family Medicine; Visit Provider Student in an Organized Health Care Education/Training Program | DX: M75.22 Bicipital tendinitis, left shoulder (principal); M75.122 Complete rotator cuff tear or rupture of left shoulder, not specified as traumatic; M75.42 Impingement syndrome of left shoulder; Z47.89 Encounter for other orthopedic aftercare | CPT/HCPCS: 99213 ==

== ENCOUNTER → 2020-05-15 14:00 | Outpatient (BNVA) | payer MEDICARE, MEDICAID, SELFPAY | PROVIDERS: PCP Family Medicine; Referring Provider Family Medicine; Visit Provider Internal Medicine Cardiovascular Disease | DX: I25.10 Atherosclerotic heart disease of native coronary artery without angina pectoris (principal); R00.2 Palpitations; I42.9 Cardiomyopathy, unspecified; E11.9 Type 2 diabetes mellitus without complications; Z79.84 Long term (current) use of oral hypoglycemic drugs; Z01.810 Encounter for preprocedural cardiovascular examination | CPT/HCPCS: 99213 ==

== ENCOUNTER 2020-05-24 10:31 | Outpatient (REF) | payer MEDICARE, MEDICAID, SELFPAY ==
[2020-05-24 15:46] LABS: Hemoglobin A1C 6.3 % (3.8-5.6)
== END 2020-05-24 10:51 ==
LOC: NCHCN 10:31
PROVIDERS: PCP Family Medicine; Visit Provider Family Medicine
DX: E11.9 Type 2 diabetes mellitus without complications (principal)
CPT/HCPCS: 82043; 82570; 83036

== ENCOUNTER 2020-06-29 03:44 | Outpatient (CLI) | payer MEDICARE, MEDICAID, SELFPAY ==
--- NOTE | 2020-06-29 10:09 | DI.RAD_ITS ---
EXAM: RF CYSTOGRAM CLINICAL HISTORY: INJURY OF BLADDER,S37.20XD TECHNIQUE: COMPARISON: No exams were available for comparison FINDINGS: Cystogram was performed according to the usual protocol via an indwelling Rao catheter. Bladder wa s filled via drip infusion until the patient experienced significant discomfort, this was approximate ly 300-400 cc. No urinary bladder wall defect seen. No evidence of extravasation. Postvoid images are unremarkable. IMPRESSION: Negative cystogram, no evidence of extravasation at this time.
[2020-06-29] MEDS: Omnipaque 350 MG/ML 50 ML BTL IJ (10:11)
== END 2020-06-29 04:04 ==
PROVIDERS: PCP Family Medicine; Visit Provider Urology
DX: S37.20XD Unspecified injury of bladder, subsequent encounter (principal)
CPT/HCPCS: 74430; Q9967

== ENCOUNTER 2020-08-24 15:24 | Outpatient (REF) | payer MEDICARE, MEDICAID, SELFPAY ==
[2020-08-24 19:31] LABS: HCT 43.6 % (36.0-46.0); HGB 14.2 g/dL (11.2-15.7); MCH 28.5 pg (27.0-33.0); MCHC 32.6 % (32.0-36.0); MCV 87.4 fL (80-95); MPV 11.4 fL (8.0-11.0); Platelet Count 251 10^3/uL (130-400); RBC 4.99 10^6/uL (3.93-5.22); RDW 14.7 % (11.7-14.6); RDW-SD 46.3 fL; WBC 8.73 10^3/uL (4.4-10.8)
[2020-08-24 20:17] LABS: Anion Gap 9.6 mmol/L (3-11); BUN 17 mg/dL (7-18); CO2 28.4 mmol/L (21.0-32.0); CREATININE 0.87 mg/dL (0.55-1.02); Calcium 9.6 mg/dL (8.5-10.1); Chloride 101 mmol/L (98-107); Glucose 59 mg/dL (74-106); Potassium 4.8 mmol/L (3.5-5.1); Sodium 139 mmol/L (136-145); TSH (W/Ref FT4) 1.17 uIU/mL (0.36-3.74)
[2020-08-24 20:25] LABS: Hemoglobin A1C 5.2 % (<5.7)
== END 2020-08-24 15:44 ==
LOC: NCHCN 15:24
PROVIDERS: PCP Family Medicine; Visit Provider Family Medicine
DX: E11.9 Type 2 diabetes mellitus without complications (principal); E03.9 Hypothyroidism, unspecified; E78.5 Hyperlipidemia, unspecified; E83.42 Hypomagnesemia
CPT/HCPCS: 80048; 85027; 83036; 84443

== ENCOUNTER 2020-08-27 22:35 | Observation (INO) | payer MEDICARE, MEDICAID, SELFPAY ==
--- NOTE | 2020-08-27 22:30 | RT.EKG_ITS ---
APPROVED REPORT Exam: Resting ECG Patient Location: E HR:92 bpm ECG Measurements Heart Rate 92 AXIS MS 154 P 60 QRSd 81 QRS 18 QT 396 T 37 QTc 489 Conclusion Sinus rhythm...normal P axis, V-rate 60- 99 Normal Electrocardiogram
[2020-08-27 22:35] VITALS: BP 132/88; PULSE 96; RESP 21; TEMP 36.8; O2SAT 98
--- NOTE | 2020-08-27 23:07 | NUR.NOTE ---
BECK from home with c/o seizure. Pt was not feeling well last night, today went to see PCP. Left and went to store, states she was walking towards her exhusband and then had seizure. Pt states told her she fell to the floor and was unable to wake her for 10. Seen at [facility], pt had fx of elbow. tates head CT done. Splint in place, +CSM. States she has had intermittent dizziness all day feeling floaty. Denies CP, abd pain. Arrives with #20 LAC. A&Ox3.
--- NOTE | 2020-08-27 23:15 | DI.CT_ITS ---
EXAM: CT BRAIN NECK CTA CLINICAL HISTORY: new seizure, headache, dizziness. TECHNIQUE: Imaging Protocol: Axial CT angiography was performed with multi-slice acquisition and mu lti-planar and/or 3D reconstructions. CONTRAST MATERIAL: Intravenous: Omnipaque 350 Contrast volume:structured data in ml COMPARISON: CT CT CHEST PE CTA from 03/09/2019 FINDINGS: CT angiography of the cervical cranial region was performed according to the usual protocol. Initial noncontrast scanning of the head is unremarkable. Visualized lung apices are clear. Visualized portions of thoracic aorta and pulmonary arterial circul ation are unremarkable. There is no evidence of a cervical mass or adenopathy. The tracheal laryngeal structures appear intact. The common, internal, and external carotid arteries are within normal limits in the cervical region w ith no evidence of aneurysm, stenosis, or dissection. The vertebral arteries are unremarkable in appearance in the cervical region with no evidence of aneu rysm, stenosis, or dissection. Intracranial portions of the internal carotid arteries appear normal with no evidence of aneurysm, st enosis, or dissection. Intracranial vertebral arteries and basilar artery appear normal with no evidence of aneurysm, stenos is or dissection. No aneurysm identified in the region of the [id number]. The anterior, middle, and posterior cer ebral arteries and major branches appear intact with no evidence of aneurysm, stenosis, or dissection . No enhancing brain lesion identified. IMPRESSION: Negative CT angiography of the cervical cranial region. RADIATION DOSE DELIVERED: 1,187.43mGy.cmTotal DLP 1,187.43mGy.cmTotal DLP 1,187.43mGy.cmTotal DLP 1,187.43mGy.cm Total DLP DATA REPOSITORY: All CT scans at this facility are submitted to the National Radiology Data Registry (NRDR) Dose Index Registry (DIR) with the [employer] (ACR). RADIATION OPTIMIZATION: All CT scans at this facility use at least one of these dose optimization te chniques: automated exposure control; mA and/or kV adjustment per patient size (includes targeted exa ms where dose is matched to clinical indication); or iterative reconstruction.
[2020-08-27 23:26] LABS: Abs Immature Grans 0.02 10^3/uL (0.0-0.06); Absolute Basophil Count 0.05 10^3/uL (0.0-0.2); Absolute Eosinophil Count 0.28 10^3/uL (0.0-0.7); Absolute Monocyte Count 0.39 10^3/uL (0.1-0.8); Absolute Neutrophil Count 4.17 10^3/uL (1.2-6.7); Basophils % 0.6; Eosinophils % 3.4; HCT 38.6 % (36.0-46.0); HGB 12.3 g/dL (11.2-15.7); Immature Grans % 0.2; Lymphocytes % 40.2; MCH 28.1 pg (27.0-33.0); MCHC 31.9 % (32.0-36.0); MCV 88.3 fL (80-95); MPV 10.4 fL (8.0-11.0); Monocytes % 4.8; Neutrophils % 50.8; Nucleated RBC 0 %; Platelet Count 188 10^3/uL (130-400); RBC 4.37 10^6/uL (3.93-5.22); RDW 14.8 % (11.7-14.6); RDW-SD 47.4 fL; WBC 8.21 10^3/uL (4.4-10.8)
[2020-08-27] MEDS: levETIRAcetam 1,000 MG in Normal Saline 100 ML 400 MG IVPB (23:28)
--- NOTE | 2020-08-27 23:33 | W.ED.GENAD ---
Discharge Plan Disposition Patient Disposition: [facility] INPATIENT Condition: Stable Discharge Details Clinical Impression: Unresponsive episode Primary Care Provider: Edie Ellis ED Provider: Russell De Luna [place] Meds and New Rx's Prescriptions: No Action metoprolol succinate 50 mg tablet extended release 24 hr 50 mg PO DAILY Qty: 30 RF: 11 vitamin A70-ztjxr acid 1 EACH tablet 1 ea PO DAILY RF: 0 clonazepam 1 mg tablet 1 mg PO BID RF: 0 rosuvastatin [Crestor] 5 MG tablet 10 mg PO QPM RF: 0 naratriptan 2.5 mg tablet 2.5 mg PO BID PRNRF: 0 metformin 500 MG tablet extended release 24 hr 1,000 mg PO BID RF: 0 riboflavin (vitamin B2) [Vitamin B-2] 50 MG tablet 200 mg PO BID RF: 0 pregabalin [Lyrica] 75 MG capsule 100 mg PO TID RF: 0 Bydureon 2 mg/0.65 mL Pen Injector 2 mg subcut QWEEK RF: 0 polyethylene glycol 3350 17 gram/dose Powder 17 g PO DAILY PRNRF: 0 paroxetine HCl 20 mg tablet 40 mg PO DAILY RF: 0 levothyroxine [Synthroid] 25 MCG tablet 50 mcg PO HS RF: 0 magnesium oxide 400 MG tablet 800 mg PO BID RF: 0 furosemide 20 mg Tablet 20 mg PO DAILY RF: 0 omeprazole 20 mg Capsule,Delayed Release(Dr/Ec) 20 mg PO DAILY RF: 0 prochlorperazine maleate 10 mg Tablet 10 mg PO DAILY RF: 0 albuterol sulfate [Ventolin HFA] 90 mcg/actuation Hfa Aerosol Inhaler 2 puff INHALATION QID PRNRF: 0 Narcan 4 mg/actuation [place],Non-Aerosol 1 spray INTRANASAL ONCE PRNRF: 0 valacyclovir 1 gram tablet 500 mg PO QHS PRNRF: 0 ketorolac 10 mg Tablet 10 mg PO TID PRNRF: 0 lamotrigine 100 mg Tablet Extended Release 24hr 100 mg PO HS RF: 0 aspirin 81 mg tablet,delayed release (DR/EC) 81 mg PO DAILY Qty: 14 RF: 0 hydromorphone [Dilaudid] 2 MG tablet 4 mg PO BID RF: 0 melatonin 10 mg Tablet 10 mg PO HS PRNRF: 0 Medical Decision Making Patient here after a second unresponsive event tonight. First 1 was this morning and seen at [place]. I did request for those records to be sent to us. I placed a call to her ex- and left a voicemail asking him to call back so I can get a description of the events. Repeat laboratory studies ordered. Because of the head pain and dizziness I am leaning toward this being neurologic. She is not describing thunderclap headache. The head pain comes and goes. It is rather intense currently. Reportedly, head CT from [place] this morning was negative. Consider possibility of subarachnoid hemorrhage but the description of headache and symptoms does not really fit. Patient is obese and has had prior low back surgery. She is not excited to consent to lumbar puncture. Will CTA head and neck especially because of the vertigo. I am going to load her with Keppra assuming this is likely seizure related. Repeat laboratory studies. Patient's EKG is normal. I was able to speak to the ex-. The first event this morning was clearly tonic-clonic grand mal seizure. The event this evening is less clear as he reports that she just collapsed to the ground but did not have any movement. She was just unresponsive. I reviewed the records from [place]. The ED chart mentions nothing about headache or vertigo. They focused more on the fact that she has cardiomyopathy and consider this syncope. She was discharged home. Laboratory studies here are unremarkable. CTA head and neck being performed now. Patient loaded with Keppra. Patient discussed with hospitalist, Dr. Wilcox. Patient to be admitted for telemetry for further monitoring and evaluation of seizure versus syncope. Medical Records Medical records reviewed: Yes I reviewed the patient's medical records. Lab Data Lab results reviewed: Yes I reviewed the patient's lab results. ECG Data Attestation: I personally reviewed and interpreted this ECG (s) as follows: Interpretation: See EKG HPI General Mode of arrival: EMS. Date/Time Provider Initiated Documentation: 08/27/20 22:45. Limitations to Documentation: no limitations. Information obtained by: patient, family, RN notes reviewed and old records reviewed. HPI Narrative: Patient brought in by EMS after unresponsive event at home. Patient now awake and alert and appropriate. She reports that since last night she has had head pain which she describes as different than her previous chronic headaches. She is felt dizzy describing spinning episodes as well. This morning when she woke she felt better. She had an appointment in [place] which she went to without incident. After the appointment she went to [employer] with her ex-. At that store she had an event which to me is unclear whether related to syncope versus seizure. She was seen at [place] ED. Work-up there reportedly negative except for fracture of the proximal ulna. She was discharged home and reports that she had continued dizziness and waxing and waning head pain. At no time was the thunderclap headache. At home her ex- was helping her back to bed when she had another event. EMS reports that it was seizure activity. Again to me not clear and I would like to speak to the ex-. Her episode this morning involved urinary incontinence. Tonight she had just gone to the bathroom so there was no incontinence. She has no prior history of seizures. She does have history of dilated cardiomyopathy related to etiology. She denies fever, cough, shortness of breath, chest pain, vomiting, numbness, weakness. Related Data Home Medications Medication Instructions Recorded Confirmed rosuvastatin [Crestor] 10 mg PO QPM 06/28/13 08/27/20 metformin 1,000 mg PO BID 03/12/15 08/27/20 riboflavin (vitamin B2) [Vitamin 200 mg PO BID 03/13/15 08/27/20 B-2] levothyroxine [Synthroid] 50 mcg PO HS 03/05/17 08/27/20 magnesium oxide 800 mg PO BID 03/05/17 08/27/20 pregabalin [Lyrica] 100 mg PO TID 03/06/17 08/27/20 vitamin O53-cbcys acid 1 ea PO DAILY 03/11/17 08/27/20 Bydureon 2 mg SUBCUT QWEEK 01/22/19 08/27/20 Narcan 1 spray INTRANASAL ONCE PRN 03/10/19 08/27/20 albuterol sulfate [Ventolin HFA] 2 puff INHALATION QID PRN 03/10/19 08/27/20 furosemide 20 mg PO DAILY 03/10/19 08/27/20 omeprazole 20 mg PO DAILY 03/10/19 08/27/20 prochlorperazine maleate 10 mg PO DAILY 03/10/19 08/27/20 metoprolol succinate 50 mg 50 mg PO DAILY #30 tab 03/21/19 08/27/20 tablet,extended release 24 hr valacyclovir 1 gram tablet 500 mg PO QHS PRN 03/21/19 08/27/20 ketorolac 10 mg PO TID PRN 09/28/19 08/27/20 lamotrigine 100 mg PO HS 09/28/19 08/27/20 aspirin 81 mg PO DAILY #14 tab 09/30/19 08/27/20 polyethylene glycol 3350 17 g PO DAILY PRN 12/22/19 08/27/20 clonazepam 1 mg tablet 1 mg PO BID tab 12/28/19 08/27/20 naratriptan 2.5 mg tablet 2.5 mg PO BID PRN 03/27/20 08/27/20 paroxetine HCl 20 mg tablet 40 mg PO DAILY tab 03/27/20 08/27/20 hydromorphone [Dilaudid] 4 mg PO BID 08/27/20 08/27/20 melatonin 10 mg PO HS PRN 08/27/20 08/27/20 Previous Rx's Medication Instructions Recorded metoprolol succinate 50 mg 50 mg PO DAILY #30 tab 03/21/19 tablet,extended release 24 hr aspirin 81 mg PO DAILY #14 tab 09/30/19 Allergies Allergy/AdvReac Type Severity Reaction Status Date / Time Penicillins Allergy Severe throat Verified 05/15/20 14:04 closes Sulfa (Sulfonamide Allergy Mild Hives Verified 05/15/20 14:04 Antibiotics) General Stated Complaint: Seizure RENATO: 2 Review of Systems Narrative: 09/05 Review of Systems completed and is negative except as stated above in HPI (Systems reviewed: Const, Eyes, ENT, Resp, CV, GI, , MSK, Skin, Neuro) [facility] Medical History Anxiety CAD (coronary artery disease) mild non-obstructive disease per cardiac cath report from [facility] [place] 09/07/2013 Cardiomyopathy last echocardiogram 01/27/2019, LVEF 50-55%, no regional wall motion abnormalities, mild LVH, mild MR; normal RV size and function Carpal tunnel syndrome Chronic pain syndrome Depression Diabetes DUB (dysfunctional uterine bleeding) Frequent headaches Hyperlipidemia Hyperthyroidism Lactose intolerance Morbid obesity Polycystic ovaries Splenomegaly Tachycardia Surgical History History of arthroscopy of left shoulder History of section x2 History of endometrial ablation Hx of cardiac catheterization Previous back surgery S/P hysterectomy Social History Smoking/Tobacco Use Status: Current-Occasional Tobacco Type: cigarettes Years smoked: 3 Alcohol Intake: never Drug use: Never Substance use type: does not use Current gender identity: female Do you feel safe at home: Yes Do you feel safe in your relationship?: Yes Exam Narrative Exam Narrative: Vitals: Afebrile with normal vitals and normal room air pulse ox. Const: Obese female in NAD. HEENT: NC/AT. Normal facial exam. Eyes: PERRL and EOMI Neck: Supple. Trachea midline. No midline tenderness. Lungs: Normal respiratory effort. Lungs are clear. Cor: RRR without murmur/gallop. Good radial pulses. GI: Soft. NT/ND. No guarding or rebound. Neuro: A+O x 3. Normal speech, mentation. Cranial nerves II - XII grossly intact. No gross motor or sensory deficit. Non-focal. Ext: No C/C/E. RUE in posterior splint. Skin: Warm and dry without lacs . Course Vital Signs Vital signs: Vital Signs Temperature 98.2 F 08/27/20 22:35 Pulse 96 H 08/27/20 22:35 Respiratory Rate 21 08/27/20 22:35 Blood Pressure 132/88 08/27/20 22:35 Pulse Oximetry 98 08/27/20 22:35 Temperature 98.2 F 08/27/20 22:35 Temperature Source Skin 08/27/20 22:35 Pulse 96 H 08/27/20 22:35 Respiratory Rate 21 08/27/20 22:35 Respiratory Effort 08/27/20 23:04 Respiratory Depth Normal 08/27/20 23:04 Respiratory Pattern Normal 08/27/20 23:04 Blood Pressure 132/88 08/27/20 22:35 Blood Pressure Position Supine 08/27/20 22:35 Pulse Oximetry 98 08/27/20 22:35 Oxygen Delivery Method Room Air 08/27/20 22:35 Oxygen Flow Rate 0 08/27/20 22:35 Pain Level 7 08/27/20 22:35
[2020-08-27 23:48] LABS: ALT 15 U/L (14-59); AST 17 U/L (15-37); Albumin 3.2 g/dL (3.4-5.0); Alkaline Phosphatase 37 U/L (46-116); Anion Gap 8.9 mmol/L (3-11); BUN 12 mg/dL (7-18); Bilirubin, Total 0.3 mg/dL (0.2-1.0); CO2 26.1 mmol/L (21.0-32.0); CREATININE 0.94 mg/dL (0.55-1.02); Calcium 8.7 mg/dL (8.5-10.1); Chloride 102 mmol/L (98-107); Glucose 141 mg/dL (74-106); Sodium 137 mmol/L (136-145); Total Protein 6.3 g/dL (6.4-8.2)
--- NOTE | 2020-08-27 23:51 | W.PM.HP.N ---
Date of service: 08/27/20 Time of Service: 23:51 Assessment and Plan Assessment and plan (1) Unresponsive episode: Status: Acute Assessment and plan: LOC. It will be essential to interview the witness as at this point it is unclear whether we are looking at syncope or seizure; from the evidence available at present I favor former but will reserve judgement. Pending further information I would proceed on both tracks: has already been loaded with Keppra, and will add telemetry. Will also repeat lab w/u and may need to repeat imaging of head. Will update once we have further input from witness. History of Present Illness History of Present Illness Chief Complaint: LOC Narrative: 45 female with multiple problems. Seen [facility] earlier today for spell of LOC. See their notes for full details, but essentially had sudden collapse w/o warning, no seizure like activity, though there was urinary incontinence, and lasted several minutes at which point she regained conciousness with slight confusion. W/U at [facility] negative including labs and head CT, though did suffer right elbow fracture and placed in sling. Admission advised, but declined. Had second such episode this evening and here now for further evaluation. Patient does not recall the spells, the description I have here is from the ER notes at [facility]. At this point we have not been able to contact the ex-, the witness. Here the initial impression in ER was that patient had had a seizure, this being based on patient's own secondhand description of what she states was told to her. She was given 1 gram Keppra. Of note is h/o cardiomyopathy, but according to [facility] her nutrition therapist reported recent normal EF. Also has h/o AF -- evidently paroxysmal. Review of Systems All systems reviewed & are unremarkable except as noted in HPI and below [facility] Medical History Anxiety CAD (coronary artery disease) mild non-obstructive disease per cardiac cath report from [facility] 09/07/2013 Cardiomyopathy last echocardiogram 01/27/2019, LVEF 50-55%, no regional wall motion abnormalities, mild LVH, mild MR; normal RV size and function Carpal tunnel syndrome Chronic pain syndrome Depression Diabetes DUB (dysfunctional uterine bleeding) Frequent headaches Hyperlipidemia Hyperthyroidism Lactose intolerance Morbid obesity Polycystic ovaries Splenomegaly Tachycardia Surgical History History of arthroscopy of left shoulder History of section x2 History of endometrial ablation Hx of cardiac catheterization Previous back surgery S/P hysterectomy Social History Smoking/Tobacco Use Status: Current-Occasional Tobacco Type: cigarettes Years smoked: 3 Alcohol Intake: never Drug use: Never Substance use type: does not use Current gender identity: female Do you feel safe at home: Yes Do you feel safe in your relationship?: Yes Meds Home Medications and Allergies Home Medications Medication Instructions Recorded Confirmed Type rosuvastatin [Crestor] 10 mg PO QPM 06/28/13 08/27/20 History metformin 1,000 mg PO BID 03/12/15 08/27/20 History riboflavin (vitamin B2) [Vitamin 200 mg PO BID 03/13/15 08/27/20 History B-2] levothyroxine [Synthroid] 50 mcg PO HS 03/05/17 08/27/20 History magnesium oxide 800 mg PO BID 03/05/17 08/27/20 History pregabalin [Lyrica] 100 mg PO TID 03/06/17 08/27/20 History vitamin A31-wnyqu acid 1 ea PO DAILY 03/11/17 08/27/20 History Bydureon 2 mg SUBCUT QWEEK 01/22/19 08/27/20 History Narcan 1 spray INTRANASAL ONCE PRN 03/10/19 08/27/20 History albuterol sulfate [Ventolin HFA] 2 puff INHALATION QID PRN 03/10/19 08/27/20 History furosemide 20 mg PO DAILY 03/10/19 08/27/20 History omeprazole 20 mg PO DAILY 03/10/19 08/27/20 History prochlorperazine maleate 10 mg PO DAILY 03/10/19 08/27/20 History metoprolol succinate 50 mg 50 mg PO DAILY #30 tab 03/21/19 08/27/20 Rx tablet,extended release 24 hr valacyclovir 1 gram tablet 500 mg PO QHS PRN 03/21/19 08/27/20 History ketorolac 10 mg PO TID PRN 09/28/19 08/27/20 History lamotrigine 100 mg PO HS 09/28/19 08/27/20 History aspirin 81 mg PO DAILY #14 tab 09/30/19 08/27/20 Rx polyethylene glycol 3350 17 g PO DAILY PRN 12/22/19 08/27/20 History clonazepam 1 mg tablet 1 mg PO BID tab 12/28/19 08/27/20 History naratriptan 2.5 mg tablet 2.5 mg PO BID PRN 03/27/20 08/27/20 History paroxetine HCl 20 mg tablet 40 mg PO DAILY tab 03/27/20 08/27/20 History hydromorphone [Dilaudid] 4 mg PO BID 08/27/20 08/27/20 History melatonin 10 mg PO HS PRN 08/27/20 08/27/20 History Allergies Allergy/AdvReac Type Severity Reaction Status Date / Time Penicillins Allergy Severe throat Verified 05/15/20 14:04 closes Sulfa (Sulfonamide Allergy Mild Hives Verified 05/15/20 14:04 Antibiotics) Exam Narrative Exam Narrative: 132/88, 96, 36.8, 21, 98% RA. HEENT atraumatic, specifically also no tongue injury; neck supple; lungs clear; heart RRR w/o MRG; abdomen soft and NT; etremities w/o edema, sling right elbow, distal CSM intact Results Labs Result diagrams: 08/27/20 22:50 08/27/20 22:50 Labs: Laboratory Results - last 24 hr 08/27/20 22:50 WBC 8.21 RBC 4.37 Hgb 12.3 Hct 38.6 MCV 88.3 MCH 28.1 MCHC 31.9 L RDW 14.8 H Plt Count 188 MPV 10.4 Immature Gran % 0.2 Neutrophils % 50.8 Lymphocytes % 40.2 Monocytes % 4.8 Eosinophils % 3.4 Basophils % 0.6 Nucleated RBC % 0 Absolute Neutrophils 4.17 Absolute Lymphocytes 3.30 Absolute Monocytes 0.39 Absolute Eosinophils 0.28 Absolute Basophils 0.05 Last Vital Signs Temp 36.8 C 08/27/20 22:35 Pulse 96 H 08/27/20 22:35 Resp 21 08/27/20 22:35 BP 132/88 08/27/20 22:35 Pulse Ox 98 08/27/20 22:35 COVID-19 Screening Have you,or household,traveled outside [place] in last 14 days?: No Had IN PERSON contact w/suspected or confirmed C-19 person: No
[2020-08-28] VITALS (8 sets, daily range): BP systolic 104–139; BP diastolic 63–93; PULSE 80–98; RESP 16–18; TEMP 35.8–36.9; O2SAT 94–97
--- NOTE | 2020-08-28 | DI.MRI_ITS ---
EXAM: MR BRAIN WO CLINICAL HISTORY: syncope vs seizure TECHNIQUE: Multiplanar multisequence MRI of the brain was performed. COMPARISON: No exams were available for comparison FINDINGS: The ventricular system is normal in appearance. No signal abnormality identified in the brain. The orbital and temporal bone structures appear intact as does the pituitary. Diffusion weighted imaging shows no evidence of infarction. Susceptibility weighted imaging shows no evidence of intracranial hemorrhage. There is normal flow void in the [place] vasculature. Coronal high-resolution T2 weighted images show no evidence of abnormal signal in the region of the h ippocampus to suggest mesial temporal sclerosis. IMPRESSION: Normal brain MRI DATA REPOSITORY:
[2020-08-28 00:03] LABS: ETHANOL BLOOD < 3.0 mg/dL (<3)
[2020-08-28 00:12] LABS: Troponin I < 0.05 ng/mL (<0.06)
--- NOTE | 2020-08-28 00:34 | NUR.NOTE ---
Returns from CT. remains A&Ox3. Plan to wait for CT results prior to admission to floor. Pt aware of plan. call kelley in reach.
[2020-08-28] MEDS: Omnipaque 350 MG/ML 100 ML BTL IJ (00:44)
[2020-08-28] MEDS: Normal Saline - Diluent 50 ML VIAL IV (00:44)
[2020-08-28] MEDS: Normal Saline Flush 10 ML SYR IVP ×2 (00:45→19:25)
[2020-08-28 00:47] LABS: *AMPHETAMINES SCREEN URINE Negative (Negative); *BARBITURATES SCREEN URINE Negative (Negative); *BENZODIAZEPINES SCREEN URINE Negative (Negative); Cannabinoids THC Negative (Negative); Cocaine Screen,Urine Negative (Negative); METHADONE URINE SCREEN Negative (Negative); OPIATES URINE SCREEN POSITIVE (Negative)
[2020-08-28 00:49] LABS: Tricyclic Antidepressants Negative (Negative)
--- NOTE | 2020-08-28 00:50 | DI.VRAD_ITS ---
PROCEDURE INFORMATION: Exam: CT Angiography Head With Contrast Exam date and time: 08/27/2020 12:00 AM Age: 45 years old Clinical indication: Dizziness and giddiness and headache; Patient HX: New seizure, headache, dizziness TECHNIQUE: Imaging protocol: Computed tomography angiography of the head with intravenous contrast. 3D rendering (Not supervised by radiologist): MIP and/or 3D reconstructed images were created by the technologist. Radiation optimization: All CT scans at this facility use at least one of these dose optimization techniques: automated exposure control; mA and/or kV adjustment per patient size (includes targeted exams where dose is matched to clinical indication); or iterative reconstruction. Contrast material: OMNIPAQUE 350; Contrast volume: 100 ml; Contrast route: INTRAVENOUS (IV); COMPARISON: CT HEAD WO 03/09/2019 7:23 PM FINDINGS: ANTERIOR CIRCULATION: Right internal carotid artery: Unremarkable. Intracranial segment is patent with no significant stenosis. No aneurysm. Right middle cerebral artery: Unremarkable. No occlusion or significant stenosis. No aneurysm. Right anterior cerebral artery: Unremarkable. No occlusion or significant stenosis. No aneurysm. Left internal carotid artery: Unremarkable. Intracranial segment is patent with no significant stenosis. No aneurysm. Left middle cerebral artery: Unremarkable. No occlusion or significant stenosis. No aneurysm. Left anterior cerebral artery: Unremarkable. No occlusion or significant stenosis. No aneurysm. POSTERIOR CIRCULATION: Right vertebral artery: Unremarkable. No occlusion or significant stenosis. No aneurysm. Left vertebral artery: Unremarkable. No occlusion or significant stenosis. No aneurysm. Basilar artery: Unremarkable. No occlusion or significant stenosis. No aneurysm. Right posterior cerebral artery: Unremarkable. No occlusion or significant stenosis. No aneurysm. Left posterior cerebral artery: Unremarkable. No occlusion or significant stenosis. No aneurysm. Brain: No definite mass, mass effect, or midline shift. Cerebral ventricles: Normal. No ventriculomegaly. Bones/joints: Unremarkable. No acute fracture. Soft tissues: Unremarkable. IMPRESSION: No large vessel stenosis or occlusion. PROCEDURE INFORMATION: Exam: CT Angiography Neck With Contrast Exam date and time: 08/27/2020 12:00 AM Age: 45 years old Clinical indication: Dizziness and giddiness and headache; Patient HX: New seizure, headache, dizziness TECHNIQUE: Imaging protocol: Computed tomography angiography of the neck with intravenous contrast. 3D rendering (Not supervised by radiologist): MIP and/or 3D reconstructed images were created by the technologist. Radiation optimization: All CT scans at this facility use at least one of these dose optimization techniques: automated exposure control; mA and/or kV adjustment per patient size (includes targeted exams where dose is matched to clinical indication); or iterative reconstruction. Contrast material: OMNIPAQUE 350; Contrast volume: 100 ml; Contrast route: INTRAVENOUS (IV); COMPARISON: CT HEAD WO 03/09/2019 7:23 PM FINDINGS: Right common carotid artery: No stenosis. No dissection or occlusion. Right internal carotid artery: No stenosis of the extracranial segment. No dissection or occlusion. Right external carotid artery: No occlusion or stenosis of the origin. Right vertebral artery: No stenosis. No dissection or occlusion. Left common carotid artery: No stenosis. No dissection or occlusion. Left internal carotid artery: No stenosis of the extracranial segment. No dissection or occlusion. Left external carotid artery: No occlusion or stenosis of the origin. Left vertebral artery: No stenosis. No dissection or occlusion. Bones/joints: No acute fracture. Soft tissues: Normal. No significant soft tissue swelling. IMPRESSION: No stenosis or occlusion. REFERENCES: NASCET CRITERIA. The degree of internal carotid artery stenosis is based on NASCET criteria. Normal is no stenosis. Mild is less than 50% stenosis. Moderate is 50-69% stenosis. Severe is 70% to 99% stenosis. Total occlusion is no detectable patent lumen. Dictated and Authenticated by: lKeber La MD. Ordering:YAIR Wells MD
[2020-08-28] MEDS: HYDROmorphone 4 MG TAB PO ×3 (00:54→19:21)
[2020-08-28] MEDS: Acetaminophen 325 MG TAB 650 MG PO (01:43)
[2020-08-28] MEDS: levETIRAcetam 500 MG TAB PO ×2 (07:50→19:24)
[2020-08-28] MEDS: Vitamins B Comp w/C TAB 1 TAB PO (07:51)
[2020-08-28] MEDS: PARoxetine 20 MG TAB 40 MG PO (07:51)
[2020-08-28] MEDS: Magnesium Oxide 400 MG TAB 800 MG PO ×2 (07:51→19:23)
[2020-08-28] MEDS: Pregabalin 100 MG CAP PO ×3 (07:51→19:24)
[2020-08-28] MEDS: Metoprolol CR 50 MG TABCR PO (07:51)
[2020-08-28] MEDS: Prochlorperazine 10 MG TAB PO (07:51)
[2020-08-28] MEDS: Omeprazole 20 MG CAPCR PO (07:51)
[2020-08-28] MEDS: Furosemide 20 MG TAB PO (07:52)
[2020-08-28] MEDS: Aspirin E.C. 81 MG TABEC PO (07:52)
--- NOTE | 2020-08-28 08:49 | W.PM.PROGNOT ---
Date of Service Date of service: 08/28/20 Time of Service: 08:49 Assessment and Plan Assessment and plan (1) Unresponsive episode: Status: Acute Assessment and plan: syncope vs seizure. neurology consult pending. EEG pending, MRI with no acute findings. has been sinus rhythm on telemetry with no dysrhythmias, no AMS since admitted. continue to monitor. was started on Keppra in ED. lamotrigine level sent out. (2) Type 2 diabetes mellitus: Status: Acute Assessment and plan: hold metformin (contrast in ED for CTA), diabetic diet, sliding scale ac/hs. 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 discussed with Dr Alvarez who is in agreement Subjective Subjective Patient reports: feels better Interval history since last seen: no headache, no nausea, eating and drinking well. reports that she had no prodromal symptom prior to the event, no similar history, was incontinent of urine, no tongue biting. no seizure history. feels at baseline now. Exam Const General: cooperative, comfortable, no acute distress and ill appearing chronically (older than stated age) Nutritional Appearance: obese Orientation: alert, awake and oriented x3 [facility] Head: normal to inspection, normocephalic and atraumatic Mouth: oral mucosae normal Resp Effort & Inspection: normal respiratory effort Auscultation: clear to auscultation bilaterally Cardio Rate: regular rate Rhythm: regular rhythm GI Inspection: normal to inspection Palpation: soft Auscultation: normal bowel sounds Neuro General: patient alert, patient awake and patient oriented x3 Cranial Nerves: CN's II-XI intact bilaterally Cognition: normal cognition Speech: speech normal Motor: muscle tone normal throughout Sensory Exam: no sensory deficits noted Extrem General: abnormal ROM and edema (fingers, warm, good sensation, good movement) Laterality: right Right upper extremity: normal capillary refill, edema and elbow/forearm (long arm fiberglass splint intact to right upper extremity); no cyanosis Psych Mental Status: mental status grossly normal Speech and Movement: speech and movement normal Mood: congruent mood Affect: normal affect Attitude: cooperative Thought Process: normal Thought Content: normal Objective Last Vital Signs Temp 36.5 C 08/28/20 07:32 Pulse 94 H 08/28/20 07:32 Resp 17 08/28/20 07:32 BP 124/82 08/28/20 07:32 Pulse Ox 96 08/28/20 07:50 Laboratory Results - last 24 hr 08/27/20 08/27/20 08/27/20 22:50 22:50 23:30 WBC 8.21 RBC 4.37 Hgb 12.3 Hct 38.6 MCV 88.3 MCH 28.1 MCHC 31.9 L RDW 14.8 H Plt Count 188 MPV 10.4 Immature Gran % 0.2 Neutrophils % 50.8 Lymphocytes % 40.2 Monocytes % 4.8 Eosinophils % 3.4 Basophils % 0.6 Nucleated RBC % 0 Absolute Neutrophils 4.17 Absolute Lymphocytes 3.30 Absolute Monocytes 0.39 Absolute Eosinophils 0.28 Absolute Basophils 0.05 Sodium 137 Potassium 4.0 Chloride 102 Carbon Dioxide 26.1 Anion Gap 8.9 BUN 12 Creatinine 0.94 Estimated GFR/1.73 m2 >= 60.00 Glucose 141 H Calcium 8.7 Total Bilirubin 0.3 AST 17 ALT 15 Alkaline Phosphatase 37 L Troponin I < 0.05 Total Protein 6.3 L Albumin 3.2 L Urine Opiates Screen Urine Methadone Screen Ur Barbiturates Screen Ur Tricyclics Screen Ur Amphetamines Screen U Benzodiazepines Scrn Urine Cocaine Screen Ur THC Screen Ethyl Alcohol < 3.0 08/28/20 00:30 WBC RBC Hgb Hct MCV MCH MCHC RDW Plt Count MPV Immature Gran % Neutrophils % Lymphocytes % Monocytes % Eosinophils % Basophils % Nucleated RBC % Absolute Neutrophils Absolute Lymphocytes Absolute Monocytes Absolute Eosinophils Absolute Basophils Sodium Potassium Chloride Carbon Dioxide Anion Gap BUN Creatinine Estimated GFR/1.73 m2 Glucose Calcium Total Bilirubin AST ALT Alkaline Phosphatase Troponin I Total Protein Albumin Urine Opiates Screen Positive A Urine Methadone Screen Negative Ur Barbiturates Screen Negative Ur Tricyclics Screen Negative Ur Amphetamines Screen Negative U Benzodiazepines Scrn Negative Urine Cocaine Screen Negative Ur THC Screen Negative Ethyl Alcohol
[2020-08-28 13:09] LABS: COVID-19 RT-PCR UVMMC Result Negative (Negative)
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
--- NOTE | 2020-08-28 16:42 | INITIAL_ITS ---
- If Service Date Differs Date of service: 01/26/21 Time of Service: 19:00 Care Management Initial Assess REASON FOR HOSPITALIZATION:: Loss of consiousness PAST MEDICAL HISTORY/PAST SURGICAL HISTORY:: Medical: anxiety, CAD, cardiomyopathy, carpal tunnel syndrome, chronic pain syndrome dysfunctional uterine bleeding, depression, DM2, fatty liver, frequent headaches, hepatomegaly, hyperlipidemia, lactose intolerance, obesity, polycystic ovaries, splenomegaly, tachycardia. Surgical: H/O , H/O back surgery. PREVIOUS FUNCTIONAL STATUS/SOCIAL/FAMILY SUPPORTS:: Jammie resides in her own apartment in [place] [place] with her 18 yo da, 8 yo da and adult son. She is followed by [facility]. They have been adjusting her medications with her, but she does own med management. She has been on disability since 2008, is independent at baseline, m anages own ADL's and drives. Has patient been provided with info about the portal/API?: Yes Did the patient sign up for the portal?: No CODE STATUS:: Full Code INSURANCE COVERAGE / FINANCIAL ISSUES:: Medicare. Medicaid CURRENT HOME/COMMUNITY SERVICES/EQUIPMENT:: Currently receives services through [facility]. States that Mana Augustine NP, Karuna Crespo for therapy. No equipment used. PRIMARY CARE PHYSICIAN:: Edie Ellis MD POTENTIAL DISCHARGE NEEDS:: Will need follow-up with [facility] and PCP. Already has appts with Richy for later this week. PATIENT/FAMILY EDUCATION NEEDS:: Review d/c instructions re meds and activity levels. Discuss Ask me Now questions. ANTICIPATED BARRIERS TO DISCHARGE:: none identified TRANSPORTATION:: via car with sonMicheal. 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
[2020-08-28] MEDS: clonazePAM 1 MG TAB PO (19:22)
[2020-08-28] MEDS: Rosuvastatin 10 MG TAB PO (19:22)
[2020-08-28] MEDS: Levothyroxine 50 MCG TAB PO (21:20)
[2020-08-28] MEDS: lamoTRIgine 100 MG TAB PO (21:21)
[2020-08-29 03:19] VITALS: BP 106/71; PULSE 84; RESP 17; TEMP 34.5; O2SAT 94
[2020-08-29 07:20] LABS: HCT 39.3 % (36.0-46.0); HGB 12.6 g/dL (11.2-15.7); MCH 28.4 pg (27.0-33.0); MCHC 32.1 % (32.0-36.0); MCV 88.7 fL (80-95); MPV 10.6 fL (8.0-11.0); Platelet Count 178 10^3/uL (130-400); RBC 4.43 10^6/uL (3.93-5.22); RDW-SD 48.3 fL
[2020-08-29 07:28] LABS: Anion Gap 3.3 mmol/L (3-11); BUN 10 mg/dL (7-18); CO2 32.7 mmol/L (21.0-32.0); CREATININE 0.95 mg/dL (0.55-1.02); Calcium 8.9 mg/dL (8.5-10.1); Chloride 103 mmol/L (98-107); Glucose 115 mg/dL (74-106); Potassium 4.3 mmol/L (3.5-5.1); Sodium 139 mmol/L (136-145)
[2020-08-29 07:35] VITALS: BP 100/71; PULSE 83; RESP 18; TEMP 36.3; O2SAT 95
[2020-08-29 07:45] VITALS: O2SAT 95
[2020-08-29] MEDS: Magnesium Oxide 400 MG TAB 800 MG PO (07:45)
[2020-08-29] MEDS: Aspirin E.C. 81 MG TABEC PO (07:46)
[2020-08-29] MEDS: Vitamins B Comp w/C TAB 1 TAB PO (07:46)
[2020-08-29] MEDS: Metoprolol CR 50 MG TABCR PO (07:46)
[2020-08-29] MEDS: Omeprazole 20 MG CAPCR PO (07:46)
[2020-08-29] MEDS: Furosemide 20 MG TAB PO (07:48)
[2020-08-29] MEDS: levETIRAcetam 500 MG TAB PO (07:52)
[2020-08-29] MEDS: Pregabalin 100 MG CAP PO ×2 (07:55→14:18)
[2020-08-29] MEDS: HYDROmorphone 4 MG TAB PO (07:56)
[2020-08-29] MEDS: PARoxetine 20 MG TAB 40 MG PO (07:56)
--- NOTE | 2020-08-29 09:05 | PT.INIE ---
Date of service: 08/29/20 Time of Service: 09:05 PT Notes Visit Reasons: LOSS OF CONCIOUSNESS Physical Therapy Inpatient Initial Evaluation Date: 08/29/2020 Referring Doctor: Kelly Clai NP PT Orders: PT CONSULT: Right elbow fracture Precautions: Fall. Standard. Activity as tolerated. Patient Profile/Admitting Diagnosis: Jammie is a 45-year-old female who presented to the ED on 08/27/2020 with 2 unresponsive events accompanied with headache and dizziness. Head CT negative. Brain MRI negative. EEG unremarkable. PMHX: Medical History Anxiety CAD (coronary artery disease) mild non-obstructive disease per cardiac cath report from [facility] 09/07/2013 Cardiomyopathy last echocardiogram 01/27/2019, LVEF 50-55%, no regional wall motion abnormalities, mild LVH, mild MR; normal RV size and function Carpal tunnel syndrome Chronic pain syndrome Depression Diabetes DUB (dysfunctional uterine bleeding) Frequent headaches Hyperlipidemia Hyperthyroidism Lactose intolerance Morbid obesity Polycystic ovaries Splenomegaly Tachycardia Surgical History History of arthroscopy of left shoulder History of section x2 History of endometrial ablation Hx of cardiac catheterization Previous back surgery S/P hysterectomy Social History/Home Situation: Jammie lives with and kids in a private home. She is independent with all mobility ADL performance without the need for an assistive ambulatory device or adaptive equipment even though she has been disabled since 2004 due to resulting left lower extremity weakness from a back surgery. Equipment Owned/DME: None Subjective: Jammie reports lightheadedness upon sitting up from supine to the edge of bed. She complains of 6/10 L frontotemporal headache and a 4/10 right elbow pain. Denies chest pain and SOB. Objective: General Observation: Telemetry monitoring in place. IV access in left UE. Mental Status: Alert and oriented x4 Pain: 6/10 L frontotemporal area and 4/10 right elbow area ROM: Right Upper Extremity: Shoulder Flexion WFL. Shoulder abduction WFL. Elbow flexion WFL. Wrist flexion WFL. Opening and closing of hand WFL. Left Upper Extremity: Shoulder Flexion allows up to 90 degrees. Shoulder abduction allows up to 90 degrees. Elbow flexion WFL. Wrist flexion WFL. Opening and closing of hand WFL. Right Lower Extremity: Hip flexion WFL. Hip abduction WFL. Knee flexion WFL. Ankle dorsiflexion WFL. Ankle plantarflexion WFL. Left Lower Extremity: Hip flexion WFL. Hip abduction WFL. Knee flexion WFL. Ankle dorsiflexion WFL. Ankle plantarflexion WFL. Strength: Right Upper Extremity: Shoulder flexors 5/5. Shoulder abductors 5/5. Elbow flexors 5/5. Elbow extensors 5/5. Sandfill Operator Surface strong. Left Upper Extremity: Shoulder flexors 3-/5. Shoulder abductors 3-/5. Elbow flexors 5/5. Elbow extensors 5/5. Sandfill Operator Surface strong. Right Lower Extremity: Hip flexors 5/5. Hip abductors 5/5. Knee flexors 5/5. Knee extensors 5/5. Ankle dorsiflexors 5/5. Ankle plantarflexors 5/5. Left Lower Extremity:Hip flexors 4-/5. Hip abductors 4-/5. Knee flexors 4-/5. Knee extensors 4-/5. Ankle dorsiflexors 4-/5. Ankle plantarflexors 4-/5. Sensation: Intact as to pain and pressure on bilateral lower extremities. Bed Mobility/Transfers: Rolling standby assist Supine to sit standby assist Sit to supine standby assist Sit to stand contact-guard assist Stand to sit contact-guard assist Bed to chair contact-guard assist Chair to bed contact-guard assist Gait: No assistive device using front wheeled walker with contact-guard assist for 30 feet with small careful hesitant steps. Balance: Static Sitting: Normal Dynamic Sitting: Normal Static Standing: Good Dynamic Standing: Good Special Tests: Mobility Limitations Standardized Measure [facility] 6 clicks Basic Mobility Inpatient Short Form: Raw Score: 21 CMS Score: 29% deficit Informed Consent/Education: Patient instructed in purpose of PT consult and plan of care. Assessment: Jammie demonstrates gait deviation consisting of small careful hesitant steps due to previous unresponsive events leading to admission, decreased activity tolerance, and increased risk for falls due to admitting diagnosis. Patient presents with clinical signs and symptoms consistent with current/admitting diagnoses that have resulted to mobility limitations, gait instability, generalized weakness, and impairment of motor control as demonstrated by the following impairment level findings: 1. Decreased strength to L shoulder and L LEmajor muscle groups 2. Impaired sitting/standing balance 3. Impaired activity tolerance 4. Limitation of joint range of motion in L shoulder Impairments are contributing to the following functional limitations: 1. Inability to safely ambulate without assistive device 2. Increase completion time for mobility ADL performance 3. Increased fall risk 4. Inability to negotiate steps alone safely Patient is assessed as a 46362 moderate complexity based on the following: History: 45-year-old female with impairment level findings, functional limitations, and past medical history as indicated above Examination: Demonstrable impairment in strength, balance, and mobility level with underlying impairments and functional limitations as documented above Presentation:Evolving Decision Makin moderate complexity Goals: Goals X1 week 1. Supine-Sit independent 2. Sit-Supine independent 3. Sit-Stand independent 4. Stand-Sit independent 5. Bed-Chair independent 6. Chair-Bed independent 7. Independent gait on level surface with use of least restrictive device for at least 300 feet without report of pain nor dyspnea 8. Independent stair negotiation while holding onto bilateral rails for at least 10 steps without report of pain nor dyspnea 9. Independent with home exercise program 10. Good static and dynamic standing balance/tolerance Plan of Care/Treatment Plan: 1-2x/day, 7 days/week x 1 week. Plan of care has been reviewed with the SWING TENDER providing the service under Physical Therapy direction. Initiate Physical Therapy intervention for strengthening, bed mobility, transfers, gait, stairs, balance training, use of assistive device. DISCHARGE RECOMMENDATIONS: Home when medically cleared by hospitalist. TREATMENT CODE/TIME: 49036 x 30 minutes beginning at 9:05 AM. Thank you for the opportunity to participate in the care of this patient. Ani Ragsdale PT, DPT, CLT [facility] [place], [place]
--- NOTE | 2020-08-29 11:39 | PDOC.EEG ---
Neurology EEG EEG: [facility] Department of Neurology INPATIENT EEG REPORT Date of Recordin08/29/20 Interpreting Physician: Dr. Nat Eason Reason for study: Ms. Gottlieb is a 45 year-old woman with a long history of syncopal events admitted after 2 events in a 12 hour period concerning for seizure. Current Medications: Current Medications Acetaminophen (Acetaminophen 325 Mg Tab) 650 mg PO Q4H PRN PRN Last Admin: 08/28/20 01:43 Dose: 650 mg Documented by: Albuterol Sulfate (Albuterol Hfa 8 Gm 60 Puff Inh) 2 puff IH QID PRN PRN Aspirin (Aspirin E.C. 81 Mg Tabec) 81 mg PO DAILY [facility] Last Admin: 08/29/20 07:46 Dose: 81 mg Documented by: Clonazepam (Clonazepam 1 Mg Tab) 1 mg PO BID [facility] Last Admin: 08/29/20 07:45 Dose: Not Given Documented by: Dimethicone/Zinc Oxide (Vanda Protect Cream 142 Gm Tube) 0 gm TP PRN PRN Furosemide (Furosemide 20 Mg Tab) 20 mg PO DAILY [facility] Last Admin: 08/29/20 07:48 Dose: 20 mg Documented by: Hydromorphone HCl (Hydromorphone 4 Mg Tab) 4 mg PO Q6H PRN PRN Last Admin: 08/28/20 00:54 Dose: 4 mg Documented by: Hydromorphone HCl (Hydromorphone 4 Mg Tab) 4 mg PO BID [facility] Last Admin: 08/29/20 07:56 Dose: 4 mg Documented by: Ketorolac Tromethamine (Ketorolac 10 Mg Tab) 10 mg PO TID PRN PRN Lamotrigine (Lamotrigine 100 Mg Tab) 100 mg PO [facility] Last Admin: 08/28/20 21:21 Dose: 100 mg Documented by: Levetiracetam (Levetiracetam 500 Mg Tab) 500 mg PO BID [facility] Last Admin: 08/29/20 07:52 Dose: 500 mg Documented by: Levothyroxine Sodium (Levothyroxine 50 Mcg Tab) 50 mcg PO [facility] Last Admin: 08/28/20 21:20 Dose: 50 mcg Documented by: Magnesium Oxide (Magnesium Oxide 400 Mg Tab) 800 mg PO BID [facility] Last Admin: 08/29/20 07:45 Dose: 800 mg Documented by: Melatonin (Melatonin 3 Mg Tab) 9 mg PO HS PRN PRN Metformin HCl (Metformin C.R. 500 Mg Tabcr) 1,000 mg PO BID [facility] Metoprolol Succinate (Metoprolol Cr 50 Mg Tabcr) 50 mg PO DAILY [facility] Last Admin: 08/29/20 07:46 Dose: 50 mg Documented by: Omeprazole (Omeprazole 20 Mg Capcr) 20 mg PO DAILY@0730 [facility] Last Admin: 08/29/20 07:46 Dose: 20 mg Documented by: Paroxetine HCl (Paroxetine 20 Mg Tab) 40 mg PO DAILY [facility] Last Admin: 08/29/20 07:56 Dose: 40 mg Documented by: Patient's Own Medication 1 Each Misc (Riboflavin ( Vitamin B2) [Vitamin B-2] 50 Mg Tablet 0 each PO BID [facility] Last Admin: 08/29/20 08:11 Dose: Not Given Documented by: Polyethylene Glycol (Polyethylene Glycol 3350 17 Gm Packet) 17 gm PO DAILY PRN PRN Pregabalin (Pregabalin 100 Mg Cap) 100 mg PO TID [facility] Last Admin: 08/29/20 07:55 Dose: 100 mg Documented by: Prochlorperazine Maleate (Prochlorperazine 10 Mg Tab) 10 mg PO DAILY PRN PRN PRN Reason: HEADACHE Rosuvastatin Calcium (Rosuvastatin 10 Mg Tab) 10 mg PO QPM [facility] Last Admin: 08/28/20 19:22 Dose: 10 mg Documented by: Sodium Chloride (Normal Saline Flush 10 Ml Syr) 10 ml IVP PRN PRN Last Admin: 08/28/20 19:25 Dose: 10 ml Documented by: Vitamin B Complex/Vitamin C (Vitamins B Comp W/C Tab) 1 tab PO DAILY [facility] Last Admin: 08/29/20 07:46 Dose: 1 tab Documented by: METHODS: A 21 channel digitized electroencephalogram was performed in the [facility] Med/Surg Floor or ICU. The 10/20 international system of electrode placement was used and bipolar and referential electrode montages were recorded. In addition to EEG the patient was monitored for EKG and lateral/vertical eye movements. Activation procedures of photic stimulation and hyperventilation were performed if applicable. Video was used during activation procedures and during events where applicable. The duration of the recording was 30 minutes. DESCRIPTION OF EEG: The patient was noted to be awake, drowsy, and asleep during the recording. During maximal wakefulness a 9-Hz posterior background rhythm was present which was well-modulated, symmetrical, reactive to eye opening, and of moderate voltage. With eye opening the background activity changed to a low voltage mixture of alpha, beta, and occasional theta range frequencies. Faster frequencies were present in the bilateral anterior head regions. There was a normal anterior-posterior voltage gradient. During drowsiness, there was attenuation of the posterior dominant background rhythm and vertex waves. Stage II sleep was present with symmetrical sleep spindles, K-complexes, and vertex waves. Activating Procedures: Photic stimulation was performed which produced no posterior driving response. Hyperventilation was performed with fair effort and produced mild physiological slowing of the background. EKG: EKG revealed normal sinus rhythm. INTERPRETATION: This EEG is normal during the awake and sleep states as well as during photic stimulation and hyperventilation. PRIOR EEG: none CLINICAL CORRELATION: No focal regions of cerebral dysfunction or epileptiform activity was present. Epilepsy remains a clinical diagnosis and a normal EEG does not rule out epilepsy. Clinical correlation is advised. Nat Eason MD
--- NOTE | 2020-08-29 12:52 | DSE_ITS ---
Date of service: 08/29/20 Time of Service: 12:52 DS: Diagnosis Discharge Diagnosis (1) Spell of altered consciousness: Status: Acute (2) Orthostasis: Status: Acute (3) Dizziness, nonspecific: Status: Acute Discharge Plan Disposition Patient Disposition: HOME Condition: Stable Discharge Details Reason For Visit: LOSS OF CONCIOUSNESS Admit Date/Time: 08/28/20 00:09 Admit Provider: Nikhil Wilcox Attending Provider: Nikhil Wilcox Primary Care Provider: Edie Ellis [facility] Course Hospital Course: This is a 44-year-old woman with a history of nonischemic cardiomyopathy, last echocardiogram in 2019 her ejection fraction had recovered to 55%, on a beta roxana. She was seen at [facility] prior to presentation here for a sudden LOC that occurred without warning, no seizure like activity, though there was urinary incontinence, and lasted several minutes at which point she regained consciousness with slight confusion. She was transported to [facility] with work up including labs and head CT, she was told did suffer right elbow fracture and was placed in a full arm splint and given a sling. Admission advised, but she declined and left. Unfortunately she had another similar episode so presented to the ED here for evaluation. CTA head and neck was ordered and showed no acute findings. EKG was unremarkable, labs also unremarkable. patient was given keppra load and referred to observation monitoring on telemetry. She remained symptom free with no dysrhythmias on telemetry. She was seen by Dr Eason and will continue to follow up outpatient. EEG was unremarkable. she will be advised not to drive. She will be discharged on a cardiac event monitor. She was also instructed to f/u with orthopedics for her right elbow but we received a call from [facility] reporting the elbow was no fractured and that the long arm splint could be removed, she does not need a sling and the outpatient orthopedic f/u could be prn only. discharge plan discussed with Dr Ruff who is in agreement. Home Meds and New Rx's Prescriptions: Continued metoprolol succinate 50 mg tablet extended release 24 hr 50 mg PO DAILY Qty: 30 RF: 11 vitamin A30-cskqu acid 1 EACH tablet 1 ea PO DAILY RF: 0 clonazepam 1 mg tablet 1 mg PO BID RF: 0 rosuvastatin [Crestor] 5 MG tablet 10 mg PO QPM RF: 0 naratriptan 2.5 mg tablet 2.5 mg PO BID PRNRF: 0 metformin 500 MG tablet extended release 24 hr 1,000 mg PO BID RF: 0 riboflavin (vitamin B2) [Vitamin B-2] 50 MG tablet 200 mg PO BID RF: 0 pregabalin [Lyrica] 75 MG capsule 100 mg PO TID RF: 0 Bydureon 2 mg/0.65 mL Pen Injector 2 mg subcut QWEEK RF: 0 polyethylene glycol 3350 17 gram/dose Powder 17 g PO DAILY PRNRF: 0 paroxetine HCl 20 mg tablet 40 mg PO DAILY RF: 0 levothyroxine [Synthroid] 25 MCG tablet 50 mcg PO HS RF: 0 magnesium oxide 400 MG tablet 800 mg PO BID RF: 0 furosemide 20 mg Tablet 20 mg PO DAILY RF: 0 omeprazole 20 mg Capsule,Delayed Release(Dr/Ec) 20 mg PO DAILY RF: 0 prochlorperazine maleate 10 mg Tablet 10 mg PO DAILY PRN (Reason: Headache) RF: 0 albuterol sulfate [Ventolin HFA] 90 mcg/actuation Hfa Aerosol Inhaler 2 puff INHALATION QID PRNRF: 0 Narcan 4 mg/actuation [place],Non-Aerosol 1 spray INTRANASAL ONCE PRNRF: 0 valacyclovir 1 gram tablet 500 mg PO QHS RF: 0 ketorolac 10 mg Tablet 10 mg PO TID PRNRF: 0 lamotrigine 100 mg Tablet Extended Release 24hr 100 mg PO HS RF: 0 aspirin 81 mg tablet,delayed release (DR/EC) 81 mg PO DAILY Qty: 14 RF: 0 hydromorphone [Dilaudid] 2 MG tablet 4 mg PO BID RF: 0 melatonin 10 mg Tablet 10 mg PO HS PRNRF: 0 Discharge Instructions Instructions: Syncope (DC) Additional Instructions: NO DRIVING. Continue pain management, can use ice if needed. Stand Alone Forms: Nursing Discharge Form Referrals: Nat Eason MD [ [facility] STAFF PHYSICIAN] - 10/09/20 1:00 pm Activity:: Activity as Tolerated Equipment/Supplies:: No Equipment Needed Diet:: As Tolerated Discharge Orders Discharge Orders: Discharge Order (Routine); Ordered 08/29/20 Ordered By: Kelly Cali Other Ambulatory Orders: Cardiac Event Recorder (Outpt) (ONCE) Location: None Selected Ordered By: Kelly Cali DS: Summary Status at Discharge Functional status at discharge: independent ambulation Overall status at discharge: patient is back to baseline Mental Status: mental status grossly normal Speech and Movement: speech and movement normal Mood: congruent mood Affect: normal affect Exam Const General: cooperative, comfortable, no acute distress and ill appearing chronically (older than stated age) Nutritional Appearance: obese Orientation: alert, awake and oriented x3 HENMT Head: normal to inspection, normocephalic and atraumatic Mouth: oral mucosae normal Resp Effort & Inspection: normal respiratory effort Auscultation: clear to auscultation bilaterally Cardio Rate: regular rate Rhythm: regular rhythm GI Inspection: normal to inspection Palpation: soft Auscultation: normal bowel sounds Neuro General: patient alert, patient awake and patient oriented x3 Cranial Nerves: CN's II-XI intact bilaterally Cognition: normal cognition Speech: speech normal Motor: muscle tone normal throughout Sensory Exam: no sensory deficits noted Extrem General: abnormal ROM and edema (fingers, warm, good sensation, good movement) Laterality: right Right upper extremity: normal capillary refill, edema and elbow/forearm (long arm fiberglass splint intact to right upper extremity); no cyanosis Psych Mental Status: mental status grossly normal Speech and Movement: speech and movement normal Mood: congruent mood Affect: normal affect Attitude: cooperative Thought Process: normal Thought Content: normal DS: Data Vitals/I&O Vitals and I&O: Vital Signs Temperature 36.3 C L 08/29/20 07:35 Temperature Source Tympanic 08/29/20 07:35 Pulse 83 08/29/20 07:35 Pulse Rhythm Regular 08/29/20 07:45 Respiratory Rate 18 08/29/20 07:35 Respiratory Effort Non-Labored 08/29/20 07:45 Respiratory Depth Normal 08/29/20 07:45 Respiratory Pattern Normal 08/29/20 07:45 Blood Pressure 100/71 08/29/20 07:35 Blood Pressure Position Supine 08/27/20 22:35 Pulse Oximetry 95 08/29/20 07:45 Oxygen Delivery Method Room Air 08/29/20 07:45 Oxygen Flow Rate 0 08/29/20 07:45 Pain Level 5 08/29/20 07:35 Comment 08/29/20 03:19 Intake & Output 08/28/20 08/29/20 08/29/20 23:59 11:59 23:59 Intake Total 490 / 830 120 / 120 Output Total 1050 / 1550 500 / 500 Balance -560 / -720 -380 / -380 Intake: IV Oral 480 / 820 120 / 120 Output: Urine 1050 / 1550 500 / 500 Other: Urine Color Straw Yellow Urine Appearance Clear Clear Urine Odor None None Voiding Methods Toilet Toilet Data Completed and Pending Labs on day of discharge: Labs from last 24 hours 08/29/20 08/29/20 08/28/20 07:00 07:00 00:40 WBC 6.60 RBC 4.43 Hgb 12.6 Hct 39.3 MCV 88.7 MCH 28.4 MCHC 32.1 RDW 15.0 H Plt Count 178 MPV 10.6 Sodium 139 Potassium 4.3 Chloride 103 Carbon Dioxide 32.7 H Anion Gap 3.3 BUN 10 Creatinine 0.95 Estimated GFR/1.73 m2 >= 60.00 Glucose 115 H Calcium 8.9 COVID-19 PCR Negative Nasopharyn COVID-19 PCR Not Applicable Ref Test Perform Site [place] [facility] Medical History Anxiety CAD (coronary artery disease) mild non-obstructive disease per cardiac cath report from [facility] 09/07/2013 Cardiomyopathy last echocardiogram 01/27/2019, LVEF 50-55%, no regional wall motion abnormalities, mild LVH, mild MR; normal RV size and function Carpal tunnel syndrome Chronic pain syndrome Depression Diabetes DUB (dysfunctional uterine bleeding) Frequent headaches Hyperlipidemia Hyperthyroidism Lactose intolerance Morbid obesity Polycystic ovaries Splenomegaly Tachycardia Surgical History History of arthroscopy of left shoulder History of section x2 History of endometrial ablation Hx of cardiac catheterization Previous back surgery S/P hysterectomy Social History Smoking/Tobacco Use Status: Current-Occasional Tobacco Type: cigarettes Years smoked: 3 Alcohol Intake: never Drug use: Never Substance use type: does not use Current gender identity: female Do you feel safe at home: Yes Do you feel safe in your relationship?: Yes
[2020-08-29 13:45] VITALS: BP 99/66; PULSE 65; RESP 18; TEMP 36.7; O2SAT 94
--- NOTE | 2020-08-29 13:49 | PT.INTREAT ---
Date of service: 08/29/20 Time of Service: 13:49 PT Notes Visit Reasons: LOSS OF CONCIOUSNESS Inpatient Physical Therapy Treatment Note [facility] Date: 08/29/2020 PRECAUTIONS: Fall, Seizure SUBJECTIVE: Jammie states that she is feeling much better, although continues to feel a little foggy. She reports that she walked herself back to her room from the shower room this afternoon and felt safe. She feels that she is at her baseline level of function at this point and is happy that she can go home this afternoon to be with her daughter. OBJECTIVE: Patient transferring and ambulating within room and in hallways independently. PAIN: Patient c/o R elbow pain, when asked if she has pain. BED MOBILITY/TRANSFERS Supine-sit: I with HOB flat Sit-supine: I with HOB flat Sit-stand: I Stand-sit: I Bed-Chair: I Chair-bed: I GAIT Assistive Device: No AD Weight bearing: Full Assist: I Distance: 300' Deviation: Short step height on L STAIRS Up/down 9x4 and 6x6 using U rail and a step-over pattern, independently. ASSESSMENT: Patient tolerated session well without complaint. She demonstrates independence with gait, transfers, bed mobility, and stairs at this time. PLAN: Patient to be discharged from PT, as she is at baseline level of function at this time. TREATMENT CODE/TIME: 10 minutes; 98450
--- NOTE | 2020-08-29 14:44 | PHA.REVIEW ---
Pharmacy Admission Review - Admission Clinical Review (Last Reviewed 08/28/20 @ 21:09 by Nat aEson MD) Dizziness, nonspecific (Acute) Orthostasis (Acute) Spell of altered consciousness (Acute) Elbow fracture, right (Acute) Unresponsive episode (Acute) Type 2 diabetes mellitus (Acute) Penicillins Allergy (Severe, Verified 05/15/20 14:04) throat closes Sulfa (Sulfonamide Antibiotics) Allergy (Mild, Verified 05/15/20 14:04) Hives Height 5 ft 4 in Weight 99.79 kg - Renal Dosing Renal Dosing: BUN 10 mg/dL (7-18) 08/29/20 07:00 Creatinine 0.95 mg/dL (0.55-1.02) 08/29/20 07:00 Medications needing adjustments: Reviewed - Anticoagulation Anticoagulation: Hgb 12.6 g/dL (11.2-15.7) 08/29/20 07:00 Hct 39.3 % (36.0-46.0) 08/29/20 07:00 Plt Count 178 10^3/uL (130-400) 08/29/20 07:00 Creatinine 0.95 mg/dL (0.55-1.02) 08/29/20 07:00 DVT Prohphylaxis: N/A Therapeutic Anticoagulation: N/A - Opiate Usage Evaluate Pain Scale/Pains Meds: Reviewed Scheduled Bowel Reg ordered if on Opiates?: Yes (prn) - Relevant Labs Sodium 139 mmol/L (136-145) 08/29/20 07:00 Potassium 4.3 mmol/L (3.5-5.1) 08/29/20 07:00 Chloride 103 mmol/L (98-107) 08/29/20 07:00 Electrolytes, C-Reactive P, ESR: Reviewed - DM Control DM Control: Glucose 115 mg/dL (74-106) H 08/29/20 07:00 - Heart Failure/NE Heart Failure/NE: Troponin I < 0.05 ng/mL (<0.06) 08/27/20 23:30 - BP Control BP Control: Blood Pressure 99/66 Blood Pressure 100/71 Blood Pressure 106/71 If elevated: Reviewed - Qtc Review If Elevated: Reviewed - IV to PO Switch IV Medications: Reviewed - Home Meds Home Med List reviewed: Reviewed Relevent Home Meds Not ordered & why?: Per external med history patient has been getting Ketorolac (10mg 2 tabs BID) filled every month since April, prior to this it was 1 tab TID PRN further concerning is that it appears she fills it early by about a week every month (refills 30 day rx, 120 tabs, every 21 days) -- this medication is NOT recommended for chronic use due to several serious side effects and has even been pulled from the market in multiple countries. Further, this patient is at higher risk of these serious side effects due to her comorbidities/PMH. The use of this medication should be reassessed and our concern has been relayed to the patient's PCP office. - Current meds Current Medication Order Review: Reviewed
[2020-08-29 15:21] VITALS: PULSE 83
--- NOTE | 2020-08-29 16:27 | PT.INDS ---
Date of service: 08/29/20 Time of Service: 16:27 PT Notes Visit Reasons: LOSS OF CONCIOUSNESS Physical Therapy Inpatient Discharge Summary Date: 08/29/2020 Dates of service: 08/29/2020 This is a clinical summary of care provided on the duration of dates listed above. No charge was made in the completion of this documentation. Referring Doctor: Kelly Cali NP PT Orders: PT CONSULT: Right elbow fracture Precautions: Fall. Standard. Activity as tolerated. Patient Profile/Admitting Diagnosis: Jammie is a 45-year-old female who presented to the ED on 08/27/2020 with 2 unresponsive events accompanied with headache and dizziness. Head CT negative. Brain MRI negative. EEG unremarkable. PMHX: Medical History Anxiety CAD (coronary artery disease) mild non-obstructive disease per cardiac [place] [facility] [place] Cardiomyopathy last echocardiogram 01/27/2019, LVEF 50-55%, no regional wall motion abnormalities, mild LVH, mild MR; normal RV size and function Carpal tunnel syndrome Chronic pain syndrome Depression Diabetes DUB (dysfunctional uterine bleeding) Frequent headaches Hyperlipidemia Hyperthyroidism Lactose intolerance Morbid obesity Polycystic ovaries Splenomegaly Tachycardia Surgical History History of arthroscopy of left shoulder History of section x2 History of endometrial ablation Hx of cardiac catheterization Previous back surgery S/P hysterectomy Social History/Home Situation: Jammie lives with and kids in a private home. She is independent with all mobility ADL performance without the need for an assistive ambulatory device or adaptive equipment even though she has been disabled since 2004 due to resulting left lower extremity weakness from a back surgery. Equipment Owned/DME: None Subjective: NT. See most recent H[employer]EL [employer] SERVICE SUPERVISOR notes. Objective: General Observation: NT. See most recent HOTEL [employer]EL [employer]OM SERVICE SUPERVISOR notes. Mental Status: NT. See most recent HOTEL [employer]EL ROOM SERVICE SUPERVISOR notes. Pain: NT. See most recent HOTEL OR [employer]EL [employer]OM SERVICE SUPERVISOR notes. ROM: Right Upper Extremity: Shoulder Flexion WFL. Shoulder abduction WFL. Elbow flexion WFL. Wrist flexion WFL. Opening and closing of hand WFL. Left Upper Extremity: Shoulder Flexion allows up to 90 degrees. Shoulder abduction allows up to 90 degrees. Elbow flexion WFL. Wrist flexion WFL. Opening and closing of hand WFL. Right Lower Extremity: Hip flexion WFL. Hip abduction WFL. Knee flexion WFL. Ankle dorsiflexion WFL. Ankle plantarflexion WFL. Left Lower Extremity: Hip flexion WFL. Hip abduction WFL. Knee flexion WFL. Ankle dorsiflexion WFL. Ankle plantarflexion WFL. Strength: Right Upper Extremity: Shoulder flexors 5/5. Shoulder abductors 5/5. Elbow flexors 5/5. Elbow extensors 5/5. Account Auditor strong. Left Upper Extremity: Shoulder flexors 3-/5. Shoulder abductors 3-/5. Elbow flexors 5/5. Elbow extensors 5/5. Account Auditor strong. Right Lower Extremity: Hip flexors 5/5. Hip abductors 5/5. Knee flexors 5/5. Knee extensors 5/5. Ankle dorsiflexors 5/5. Ankle plantarflexors 5/5. Left Lower Extremity:Hip flexors 4-/5. Hip abductors 4-/5. Knee flexors 4-/5. Knee extensors 4-/5. Ankle dorsiflexors 4-/5. Ankle plantarflexors 4-/5. Sensation: Intact as to pain and pressure on bilateral lower extremities. Bed Mobility/Transfers: Rolling independent Supine to sit independent Sit to supine independent Sit to stand independent Stand to sit independent Bed to chair independent Chair to bed independent Gait: 300 feet without any AD and FWB with step through gait pattern but decreased step height. Balance: Static Sitting: Normal Dynamic Sitting: Normal Static Standing: Normal Dynamic Standing: Good Assessment: Jammie's EEG returned with negative result for any acute abnormality. She is being discharged today to home without any services. Goals: Goals X1 week 1. Supine-Sit independent MET 2. Sit-Supine independent MET 3. Sit-Stand independent MET 4. Stand-Sit independent MET 5. Bed-Chair independent MET 6. Chair-Bed independent MET 7. Independent gait on level surface with use of least restrictive device for at least 300 feet without report of pain nor dyspnea MET 8. Independent stair negotiation while holding onto bilateral rails for at least 10 steps without report of pain nor dyspnea MET 9. Independent with home exercise program MET 10. Good static and dynamic standing balance/tolerance MET DISCHARGE RECOMMENDATIONS: Home when medically cleared by hospitalist. TREATMENT CODE/TIME: TX Thank you for the opportunity to participate in the care of this patient. Ani Ragsdale PT, DPT, CLT [facility], [place]
--- NOTE | 2020-08-29 16:30 | PDOC.CMDIS ---
- If Service Date Differs Date of service: 08/29/20 Time of Service: 16:30 LACE Index Scoring Tool - Questions: Length of Stay (in days): 2 Acuity (Admit via E.D.?): Yes Comorbidities: Diabetes w/o Complication E.D. Visits: 2 - Answers: Total Score: 8 Risk of Readmission: Low Risk Care Management Discharge Reason for Hospitalization: Loss of consiousness Discharge Plan: Jammie will return home with no additional services. She will be driven home by her ex via private vehicle. She will follow up with her PCP and discharge plan of care. She is happy to be going home. Patient/Family Education Needs: Review discharge instructions regarding activity levels and medications, discussion of self care needs including ask me three.
[2020-08-29 16:50] LABS: Lamotrigine 0.6 mcg/mL (2.5 - 15.0)
== END 2020-08-29 15:18 | disposition home or self-care (01) ==
LOC: ER 23:57 → MS 08-28 00:58
PROVIDERS: Nurse Practitioner Acute Care; Admitting Provider General Practice; Emergency Provider Emergency Medicine; PCP Family Medicine; Visit Provider General Practice
DX: R55 Syncope and collapse (principal); I48.0 Paroxysmal atrial fibrillation; R42 Dizziness and giddiness; F41.9 Anxiety disorder, unspecified; I25.10 Atherosclerotic heart disease of native coronary artery without angina pectoris; G89.4 Chronic pain syndrome; E11.9 Type 2 diabetes mellitus without complications; E78.5 Hyperlipidemia, unspecified; E66.01 Morbid (severe) obesity due to excess calories; E28.2 Polycystic ovarian syndrome; R51.9 Headache, unspecified; F17.210 Nicotine dependence, cigarettes, uncomplicated; Z79.84 Long term (current) use of oral hypoglycemic drugs; I42.0 Dilated cardiomyopathy; F31.9 Bipolar disorder, unspecified; F43.10 Post-traumatic stress disorder, unspecified; S52.001A Unspecified fracture of upper end of right ulna, initial encounter for closed fracture; W19.XXXA Unspecified fall, initial encounter; I95.1 Orthostatic hypotension
CPT/HCPCS: 0296T; 36415; 36416; 70496; 70498; 80048; 80053; 80175; 80307; 82962; 85027; 93005; 93270; 95819; 96365; 97162; 97530; 99215; 99217; 99222; 99223; 99226; 99283; 99285; U0003; 70551; 80320; 84484; 85025; 93010; 99219; G0378; J1953; J3490

== ENCOUNTER 2020-08-29 19:02 | Emergency (ER) | payer MEDICARE, MEDICAID, SELFPAY ==
--- NOTE | 2020-08-29 19:00 | RT.EKG_ITS ---
APPROVED REPORT Exam: Resting ECG Patient Location: E HR:79 bpm ECG Measurements Heart Rate 79 AXIS TN 180 P 8 QRSd 74 QRS -4 QT 414 T 11 QTc 475 Conclusion EKG 19: 08 Rate 79, QTc 475, QRS 74, TN 180, sinus rhythm, no significant ST elevations or depressions, no large Q waves, no evidence of STEMI.
[2020-08-29 19:03] VITALS: BP 111/72; PULSE 79; RESP 16; TEMP 36.4; O2SAT 97
[2020-08-29 19:06] VITALS: RESP 16
[2020-08-29 19:49] VITALS: BP 115/68; BP 115/75; BP 120/77; PULSE 82; PULSE 84; PULSE 88
--- NOTE | 2020-08-29 19:53 | W.ED.GENAD ---
Discharge Plan Disposition Patient Disposition: HOME Condition: Stable Discharge Details Clinical Impression: Syncope Primary Care Provider: Edie Ellis ED Provider: Edi Richardson Home Meds and New Rx's Prescriptions: Continued metoprolol succinate 50 mg tablet extended release 24 hr 50 mg PO DAILY Qty: 30 RF: 11 vitamin Q22-fwayk acid 1 EACH tablet 1 ea PO DAILY RF: 0 clonazepam 1 mg tablet 1 mg PO BID RF: 0 rosuvastatin [Crestor] 5 MG tablet 10 mg PO QPM RF: 0 naratriptan 2.5 mg tablet 2.5 mg PO BID PRNRF: 0 metformin 500 MG tablet extended release 24 hr 1,000 mg PO BID RF: 0 riboflavin (vitamin B2) [Vitamin B-2] 50 MG tablet 200 mg PO BID RF: 0 pregabalin [Lyrica] 75 MG capsule 100 mg PO TID RF: 0 Bydureon 2 mg/0.65 mL Pen Injector 2 mg subcut QWEEK RF: 0 polyethylene glycol 3350 17 gram/dose Powder 17 g PO DAILY PRNRF: 0 paroxetine HCl 20 mg tablet 40 mg PO DAILY RF: 0 levothyroxine [Synthroid] 25 MCG tablet 50 mcg PO HS RF: 0 magnesium oxide 400 MG tablet 800 mg PO BID RF: 0 furosemide 20 mg Tablet 20 mg PO DAILY RF: 0 omeprazole 20 mg Capsule,Delayed Release(Dr/Ec) 20 mg PO DAILY RF: 0 prochlorperazine maleate 10 mg Tablet 10 mg PO DAILY PRN (Reason: Headache) RF: 0 albuterol sulfate [Ventolin HFA] 90 mcg/actuation Hfa Aerosol Inhaler 2 puff INHALATION QID PRNRF: 0 Narcan 4 mg/actuation Duncan,Non-Aerosol 1 spray INTRANASAL ONCE PRNRF: 0 valacyclovir 1 gram tablet 500 mg PO QHS RF: 0 ketorolac 10 mg Tablet 10 mg PO TID PRNRF: 0 lamotrigine 100 mg Tablet Extended Release 24hr 100 mg PO HS RF: 0 aspirin 81 mg tablet,delayed release (DR/EC) 81 mg PO DAILY Qty: 14 RF: 0 hydromorphone [Dilaudid] 2 MG tablet 4 mg PO BID RF: 0 melatonin 10 mg Tablet 10 mg PO HS PRNRF: 0 Discharge Instructions Instructions: Syncope (ED) Additional Instructions: At this time you were offered and provided with a medical screening examination. We discussed options such as initiating blood work, repeating troponin and EKG in 3 hours, and even admission for observation of your ongoing symptoms. Given you were recently admitted to our facility, discharged today, had an EEG and are currently wearing a Holter monitor, you have declined any of this. As we discussed, please watch for new or evolving symptoms and return immediately to the ER. Otherwise I recommend follow the instructions given to you after discharge from being inpatient today, follow-up with your outpatient primary care provider, and neurologist. I would contact them both tomorrow to make them aware of your episode this evening. Medical Decision Making 45-year-old female with anxiety, CAD, cardiomyopathy, chronic pain syndrome, depression, diabetes, migraines, recent admission for syncope-seizure activity, subsequently discharged from the hospital today around 3 PM presents via EMS for evaluation. She reports that she got up from the couch, felt as though she may pass out, did pass out and was lowered to the ground by her ex-. No obvious seizure activity was noted. She did not bite her tongue or have any incontinence. Fingerstick glucose of 110. I was able to discuss the Holter monitor being respiratory therapy. They were able to contact the company and at the reading. Patient stayed in sinus rhythm, there was no indication of any dysrhythmias. Currently patient reports a mild dull headache, generalized weakness, otherwise asymptomatic. She appears well, nontoxic and is neurologically intact. Blood pressure 111/72, pulse 79, respirations 16, she is afebrile, O2 sats in the low 90s on room air. EKG was obtained per protocol, please see official report by Dr. Collado. Sinus rhythm, ventricular rate of 79. No STEMI. Patient tells me that she feels at baseline and does not believe that she needs to be here in the ER. We had a lengthy discussion and I explained to her that with her multiple syncopal and/or seizure like activity, I felt as though an observation admission was perfectly reasonable. She makes it very clear that she was in the hospital for 2 days, was discharged earlier today, and does not want to be admitted again. We then discussed that at minimum I would like to obtain a cardiac work-up now and in 3 hours obtain a repeat troponin and EKG for further evaluation of her symptoms and in the meantime she will remain on a sanding machine tender automatic and we could observe her here in the ER. Patient again states as though she does not believe this is necessary and would like to be discharged. I did request that we obtain orthostatics prior to making any additional decisions. Orthostatic vital signs were unremarkable. Patient is awake, alert, oriented x3, of sound mind and can make her own decisions. Patient has been offered and provided with a medical screening examination. Patient appears well, nontoxic, is neurologically intact. She understands the risks and benefits of further work-up here in the ER versus being discharged home. She wishes to be discharged home. Given her admission to our facility, recent EEG, currently wearing a Holter monitor, I do believe that this is a reasonable plan and she is of sound mind to make this decision; therefore, I will respect her wishes and discharge her with proper precautions and not to have her sign out AMA. Patient has no additional questions or concerns and is comfortable with discharge at this time. Patient was able to use her cell phone without difficulty to have a conversation with her ex- who is comfortable picking her up in her current condition. She is encouraged to return to the ER for new or worsening symptoms. Otherwise she will contact her primary care provider and neurologist tomorrow for prompt outpatient reevaluation. Medical Records Medical records reviewed: Yes I reviewed the patient's medical records. ECG Data Attestation: I personally reviewed and interpreted this ECG (s) as follows: Interpretation: Please see official report by Dr. Collado. Sinus rhythm, ventricular rate of 79, no STEMI HPI General Mode of arrival: EMS. Date/Time Provider Initiated Documentation: 08/29/20 19:06. Limitations to Documentation: no limitations. Information obtained by: patient. HPI Narrative: This is a 45-year-old female with past medical history that includes anxiety, CAD, cardiomyopathy, chronic pain syndrome, depression, diabetes, migraines, morbid obesity, presenting to the ER today for potential syncope. She was actually seen in the ER in [place] yesterday for potential syncope and/or seizure. Patient had fallen and was diagnosed with a broken elbow as well. At that time she declined admission to their facility. Subsequently had another episode, came to our ER, and after she had a negative head and neck CTA was admitted to our facility. She subsequently was seen by neurology, had an EEG today, and was set up for a Holter monitor today before discharge. She states that she went home, cleaned the entire house because she had been away for a couple of days, and likely overdid it. She states that she went to get up from the couch, felt weak like she may pass out, and then does not recall anything until waking up on the floor. Apparently she had a syncopal episode, no seizure activity witnessed, was not incontinent, did not bite her tongue. Her ex- was able to lower her to the ground gently and there was no injury. Patient reports that she has had a migraine for the past couple of days which is improving after she took 1 of her triptan's today at home. She reports that she feels generally tired. She denies any visual changes, neck pain, chest pain, shortness of breath abdominal pain, nausea, vomiting, numbness, tingling, weakness, fevers. She tells me that she did not feel as though coming to the ER was necessary and that she came here because her daughter and ex- felt as though she should. Related Data Home Medications Medication Instructions Recorded Confirmed rosuvastatin [Crestor] 10 mg PO QPM 06/28/13 08/27/20 metformin 1,000 mg PO BID 03/12/15 08/27/20 riboflavin (vitamin B2) [Vitamin 200 mg PO BID 03/13/15 08/27/20 B-2] levothyroxine [Synthroid] 50 mcg PO HS 03/05/17 08/27/20 magnesium oxide 800 mg PO BID 03/05/17 08/27/20 pregabalin [Lyrica] 100 mg PO TID 03/06/17 08/27/20 vitamin [id number] acid 1 ea PO DAILY 03/11/17 08/27/20 Bydureon 2 mg SUBCUT QWEEK 01/22/19 08/27/20 Narcan 1 spray INTRANASAL ONCE PRN 03/10/19 08/27/20 albuterol sulfate [Ventolin HFA] 2 puff INHALATION QID PRN 03/10/19 08/27/20 furosemide 20 mg PO DAILY 03/10/19 08/27/20 omeprazole 20 mg PO DAILY 03/10/19 08/27/20 prochlorperazine maleate 10 mg PO DAILY PRN 03/10/19 08/27/20 metoprolol succinate 50 mg 50 mg PO DAILY #30 tab 03/21/19 08/27/20 tablet,extended release 24 hr valacyclovir 1 gram tablet 500 mg PO QHS 03/21/19 08/27/20 ketorolac 10 mg PO TID PRN 09/28/19 08/27/20 lamotrigine 100 mg PO HS 09/28/19 08/27/20 aspirin 81 mg PO DAILY #14 tab 09/30/19 08/27/20 polyethylene glycol 3350 17 g PO DAILY PRN 12/22/19 08/27/20 clonazepam 1 mg tablet 1 mg PO BID tab 12/28/19 08/27/20 naratriptan 2.5 mg tablet 2.5 mg PO BID PRN 03/27/20 08/27/20 paroxetine HCl 20 mg tablet 40 mg PO DAILY tab 03/27/20 08/27/20 hydromorphone [Dilaudid] 4 mg PO BID 08/27/20 08/27/20 melatonin 10 mg PO HS PRN 08/27/20 08/27/20 Previous Rx's Medication Instructions Recorded metoprolol succinate 50 mg 50 mg PO DAILY #30 tab 03/21/19 tablet,extended release 24 hr aspirin 81 mg PO DAILY #14 tab 09/30/19 Allergies Allergy/AdvReac Type Severity Reaction Status Date / Time Penicillins Allergy Severe throat Verified 05/15/20 14:04 closes Sulfa (Sulfonamide Allergy Mild Hives Verified 05/15/20 14:04 Antibiotics) General Stated Complaint: Dizzy/Sync RENATO: 3 Review of Systems Constitutional Constitutional: Reports fatigue, Denies fever(s), Reports headache(s) and Reports weakness (Generalized) Eyes Eyes: Denies change in vision ENT Ears, Nose, Mouth, and Throat: Reports headache(s) and Denies neck pain Cardiovascular Cardiovascular: Denies chest pain and Denies dyspnea Respiratory Respiratory: Denies cough and Denies dyspnea Gastrointestinal Gastrointestinal: Denies abdominal pain, Denies nausea and Denies vomiting Genitourinary Genitourinary: Denies dysuria Musculoskeletal Musculoskeletal: Denies back pain, Denies muscle weakness, Denies neck pain, Denies numbness and Denies tingling Integumentary/Breasts Skin/Breast: Denies rash Neurologic Neurologic: Reports headache(s), Denies numbness and Denies tingling Endocrine Endocrine: Reports fatigue [facility] Medical History Anxiety CAD (coronary artery disease) mild non-obstructive disease per cardiac cath report from [facility] [place] 09/07/2013 Cardiomyopathy last echocardiogram 01/27/2019, LVEF 50-55%, no regional wall motion abnormalities, mild LVH, mild MR; normal RV size and function Carpal tunnel syndrome Chronic pain syndrome Depression Diabetes DUB (dysfunctional uterine bleeding) Frequent headaches Hyperlipidemia Hyperthyroidism Lactose intolerance Morbid obesity Polycystic ovaries Splenomegaly Tachycardia Surgical History History of arthroscopy of left shoulder History of section x2 History of endometrial ablation Hx of cardiac catheterization Previous back surgery S/P hysterectomy Social History Smoking/Tobacco Use Status: Current-Occasional Tobacco Type: cigarettes Years smoked: 3 Alcohol Intake: never Drug use: Never Substance use type: does not use Current gender identity: female Do you feel safe at home: Yes Do you feel safe in your relationship?: Yes Exam Const General: cooperative, healthy appearing, comfortable and no acute distress Orientation: alert, awake and oriented x3 HENMT Head: normal to inspection, no palpable skull fracture, normocephalic and atraumatic Ears: external ears normal, TM's normal bilaterally and EAC's normal Mouth: oral mucosae normal and moist mucous membranes Throat: posterior oropharynx normal Eyes General: appearance normal, both eyes and all related structures Alignment and Position: alignment normal Periorbital: periorbital findings normal Eyelids: eyelids normal Conjunctivae: conjunctivae normal Sclera: sclerae normal Cornea: corneas normal Pupils: PERRL EOM: EOM intact bilaterally Direct ophthalmoscopy: normal light reflex Neck Neck: normal visual inspection, full ROM, no lymphadenopathy, no meningeal signs, trachea midline, supple and nontender Resp Effort & Inspection: normal respiratory effort and able to speak in complete sentences Auscultation: clear to auscultation bilaterally Cardio Rate: regular rate Rhythm: regular rhythm GI Inspection: normal to inspection Palpation: soft, not firm, no guarding, not rigid and nontender Auscultation: normal bowel sounds Back/Spine/Pelvis Back: No back tenderness Skin General skin exam: no rashes or lesions noted Neuro General: patient alert, patient awake, patient oriented x3, moves all extremities and no focal motor deficits Cranial Nerves: CN's II-XI intact bilaterally Speech: speech normal Gait: normal gait Motor: muscle tone normal throughout, strength 5/5 throughout, no pronator drift, no movement abnormalities noted and no fasciculations Sensory Exam: no sensory deficits noted Coordination: Does not sway with eyes open Extrem General: normal to inspection, full ROM, capillary refill normal, no pedal edema and no calf tenderness Psych Appearance: grossly normal Mental Status: mental status grossly normal Course Vital Signs Vital signs: Vital Signs Temperature 36.4 C L 08/29/20 19:03 Pulse 79 08/29/20 19:03 Respiratory Rate 16 08/29/20 19:03 Blood Pressure 111/72 08/29/20 19:03 Pulse Oximetry 97 08/29/20 19:03 Temperature 36.4 C L 08/29/20 19:03 Temperature Source Skin 08/29/20 19:03 Pulse 82 08/29/20 19:49 Respiratory Rate 16 08/29/20 19:06 Respiratory Effort 08/29/20 19:06 Respiratory Depth Normal 08/29/20 19:06 Respiratory Pattern Normal 08/29/20 19:06 Blood Pressure 115/68 08/29/20 19:49 Blood Pressure Position Supine 08/29/20 19:03 Pulse Oximetry 97 08/29/20 19:03 Oxygen Delivery Method Room Air 08/29/20 19:03 Oxygen Flow Rate 0 08/29/20 19:03 Pain Level 5 08/29/20 19:03
== END 2020-08-29 20:00 | disposition home or self-care (01) ==
PROVIDERS: Emergency Provider Physician Assistant; PCP Family Medicine
DX: R55 Syncope and collapse (principal); R53.1 Weakness; R51.9 Headache, unspecified; I42.9 Cardiomyopathy, unspecified; E11.9 Type 2 diabetes mellitus without complications; Z79.84 Long term (current) use of oral hypoglycemic drugs
CPT/HCPCS: 93005; 99283; 93010

== ENCOUNTER 2020-09-03 21:25 | Emergency (ER) | payer MEDICARE, MEDICAID, SELFPAY ==
[2020-09-03] VITALS (25 sets, daily range): BP systolic 120–132; BP diastolic 76–85; PULSE 86–106; RESP 12–26; TEMP 36.7; O2SAT 91–100
[2020-09-03] MEDS: Normal Saline 1,000 ML 1000 ML IV (22:00)
--- NOTE | 2020-09-03 22:00 | ED.GENADUL_ITS ---
Discharge Plan Disposition Patient Disposition: HOME Condition: Fair Discharge Details Clinical Impression: Dehydration, Migraine headache without aura, Acute kidney injury, Syncopal episodes, Hypomagnesemia Primary Care Provider: Edie Ellis ED Provider: Sherrie Apodaca Home Meds and New Rx's Prescriptions: Continued metoprolol succinate 50 mg tablet extended release 24 hr 50 mg PO DAILY Qty: 30 RF: 11 vitamin R09-vdpbw acid 1 EACH tablet 1 ea PO DAILY RF: 0 clonazepam 1 mg tablet 1.5 mg PO HS RF: 0 rosuvastatin [Crestor] 5 MG tablet 10 mg PO QPM RF: 0 naratriptan 2.5 mg tablet 2.5 mg PO BID PRNRF: 0 metformin 500 MG tablet extended release 24 hr 1,000 mg PO BID RF: 0 riboflavin (vitamin B2) [Vitamin B-2] 50 MG tablet 200 mg PO BID RF: 0 pregabalin [Lyrica] 75 MG capsule 100 mg PO TID RF: 0 Bydureon 2 mg/0.65 mL Pen Injector 2 mg subcut QWEEK RF: 0 polyethylene glycol 3350 17 gram/dose Powder 17 g PO DAILY PRNRF: 0 paroxetine HCl 20 mg tablet 40 mg PO DAILY RF: 0 levothyroxine [Synthroid] 25 MCG tablet 50 mcg PO HS RF: 0 magnesium oxide 400 MG tablet 800 mg PO BID RF: 0 furosemide 20 mg Tablet 20 mg PO DAILY RF: 0 omeprazole 20 mg Capsule,Delayed Release(Dr/Ec) 20 mg PO DAILY RF: 0 prochlorperazine maleate 10 mg Tablet 10 mg PO DAILY PRN (Reason: Headache) RF: 0 albuterol sulfate [Ventolin HFA] 90 mcg/actuation Hfa Aerosol Inhaler 2 puff INHALATION QID PRNRF: 0 Narcan 4 mg/actuation [place],Non-Aerosol 1 spray INTRANASAL ONCE PRNRF: 0 valacyclovir 1 gram tablet 500 mg PO QHS RF: 0 ketorolac 10 mg Tablet 10 mg PO TID PRNRF: 0 lamotrigine 100 mg Tablet Extended Release 24hr 100 mg PO HS RF: 0 aspirin 81 mg tablet,delayed release (DR/EC) 81 mg PO DAILY Qty: 14 RF: 0 hydromorphone [Dilaudid] 2 MG tablet 4 mg PO BID RF: 0 melatonin 10 mg Tablet 10 mg PO HS PRNRF: 0 glipizide 10 mg tablet extended release 24hr 10 mg PO BID RF: 0 ondansetron HCl 4 mg tablet 4 mg PO Q8H PRNRF: 0 Discharge Instructions Instructions: Dehydration (ED), Syncope (ED), Hypomagnesemia (ED) Additional Instructions: Please continue to encourage water intake. Do not take any further triptan medications this evening. You labs are concerning for bump in your kidney function, this is consistent with dehydration and acute kidney injury. I would like for you to follow-up closely with your primary care. Please keep your upcoming appointment on Thursday. Please keep your Holter monitor on and continue to record any further events. If you develop fever/chills, shortness of breath, chest pain, recurrent episode or other new/worsening symptoms please seek care urgently once again. Do not drive. Referrals: Edie Ellis MD [Primary Care Provider] - Discharge Data Discharge Date/Time-TO BE ENTERED AT DEPARTURE: 09/04/20 00:20 Medical Decision Making Patient is a 45 year old female, accompanied by signficant other, presenting with c/c of recurrent syncope event. Patient states that she has had multiple of these issues recently. States that today was her first day out of the house since her recent admission for this. Please see recent discharge information dated 08/29/2020. While inpatient, patient underwent head CT, CTA, remain on telemetry, was evaluated by neurology, underwent EEG. None of these showed significant normality. Patient was diagnosed with a right elbow fracture and splinted. She is not currently wearing the splint. Patient has event monitor in place nurse to reported events already in the system without evidence of dysrhythmia. She reports that today while shopping she developed feeling of lightheadedness. Her significant other reports that she began dazed and then fell. Significant other was able to lower her to the ground safely without trauma. He reports that she lay on the ground and was in and out. Patient is currently reporting feeling fatigued. She denies any drug or alcohol use. Denies any fevers or chills. Denies any headache, neck pain, chest pain. No nausea vomiting. Significant other reports that she twitched a few times. But no ailyn seizure activity. On exam, patient appears fatigued but otherwise well. She has an intact neurological exam. I see any evidence of trauma. Normal cardiac exam. She has had quite a significant work-up recently, I do not feel that repeat imaging of her head is warranted at this time particular she is not endorsing any headache and did not suffer any trauma. Labs are reviewed. No leukocytosis, stable H&H. Creatinine is bumped at 1.21. She has been elevated like this historically this is new in the acute setting. She is receiving IV hydration and is drinking. Magnesium is low at 1.4, will replenish this IV. Troponin is less than 0.05. Continue to reassess the patient she continues to wax and wane in regards to her symptoms. Occasionally she can appear quite fatigued and repetitive with this. Almost appears intoxicated. However, this does seem to be dictated by who she is speaking with, particular when she is on the phone her son her complaints seem to be more exaggerated. Her neuro exam continues to be intact. Plan to add on alcohol as well, patient does deny any alcohol usage. Alcohol level is 5.1. She denies any alcohol usage. However, she was with a friend today who the son and significant other reports she often drinks with. I was concerned that maybe she is having withdrawal seizure but the patient is insistent that she does not drink alcohol on a routine basis. I discussed disposition at length with the patient. I am concerned regarding her bump in creatinine. However, she is refusing admission and would like to be discharged home. She does not want to wait to have this rechecked. She does have an appointment with her primary care shortly and will have this rechecked at that time. Strict return precautions were given. I again advised against driving. She has been driving since her discharge. Patient was able to get dressed without assistance. She does state with son and significant other. She will increase water intake. All questions and concerns were addressed, she isin agreement with this plan. HPI General Mode of arrival: EMS . Date/Time Provider Initiated Documentation: 09/03/20 21:26 . Limitations to Documentation: no limitations . Information obtained by: patient, family (significant other), EMS, RN notes reviewed and old records reviewed . HPI Narrative: Patient is a 45-year-old female, brought in via EMS after episode at local grocery store with the patient syncopized. Significant other is at bedside. He was with the patient when this occurred. He reports that the patient began endorsing some lightheadedness. He states that she was foggy. Patient subsequently lost muscle tone and fell. He reports that he lowered to the ground. Did not strike her head. He reports that the patient was then in and out of consciousness speaking between each short lapse. He states that initially she had some shaking to arms and legs. No tongue biting or incontinence was noted by EMS. Patient has been seen here a multitude of times for the same episodes. Was recently admitted. Patient has had an EEG with no seizure activity noted. She currently has a Holter monitor in place. She denies any chest pain, palpitations, shortness of breath. Denies any GI upset. EMS reports the patient was intermittently falling asleep while sitting upright when with them. Patient is otherwise appropriate although appearing fatigued per EMS report. Related Data Home Medications Medication Instructions Recorded Confirmed rosuvastatin [Crestor] 10 mg PO QPM 06/28/13 09/03/20 metformin 1,000 mg PO BID 03/12/15 09/03/20 riboflavin (vitamin B2) [Vitamin 200 mg PO BID 03/13/15 09/03/20 B-2] levothyroxine [Synthroid] 50 mcg PO HS 03/05/17 09/03/20 magnesium oxide 800 mg PO BID 03/05/17 09/03/20 pregabalin [Lyrica] 100 mg PO TID 03/06/17 09/03/20 vitamin Z49-hkqxe acid 1 ea PO DAILY 03/11/17 09/03/20 Bydureon 2 mg SUBCUT QWEEK 01/22/19 09/03/20 Narcan 1 spray INTRANASAL ONCE PRN 03/10/19 09/03/20 albuterol sulfate [Ventolin HFA] 2 puff INHALATION QID PRN 03/10/19 09/03/20 furosemide 20 mg PO DAILY 03/10/19 09/03/20 omeprazole 20 mg PO DAILY 03/10/19 09/03/20 prochlorperazine maleate 10 mg PO DAILY PRN 03/10/19 09/03/20 metoprolol succinate 50 mg 50 mg PO DAILY #30 tab 03/21/19 09/03/20 tablet,extended release 24 hr valacyclovir 1 gram tablet 500 mg PO QHS 03/21/19 09/03/20 ketorolac 10 mg PO TID PRN 09/28/19 09/03/20 lamotrigine 100 mg PO HS 09/28/19 09/03/20 aspirin 81 mg PO DAILY #14 tab 09/30/19 09/03/20 polyethylene glycol 3350 17 g PO DAILY PRN 12/22/19 09/03/20 clonazepam 1 mg tablet 1.5 mg PO HS tab 12/28/19 09/03/20 naratriptan 2.5 mg tablet 2.5 mg PO BID PRN 03/27/20 09/03/20 paroxetine HCl 20 mg tablet 40 mg PO DAILY tab 03/27/20 09/03/20 hydromorphone [Dilaudid] 4 mg PO BID 08/27/20 09/03/20 melatonin 10 mg PO HS PRN 08/27/20 08/27/20 glipizide 10 mg PO BID 09/03/20 09/03/20 ondansetron HCl 4 mg PO Q8H PRN 09/03/20 09/03/20 Previous Rx's Medication Instructions Recorded metoprolol succinate 50 mg 50 mg PO DAILY #30 tab 03/21/19 tablet,extended release 24 hr aspirin 81 mg PO DAILY #14 tab 09/30/19 Allergies Allergy/AdvReac Type Severity Reaction Status Date / Time Penicillins Allergy Severe throat Verified 09/04/20 01:03 closes Sulfa (Sulfonamide Allergy Mild Hives Verified 09/04/20 01:03 Antibiotics) General Stated Complaint: Dizzy/Sync RENATO: 3 Review of Systems Constitutional Constitutional: Reports as per HPI, Denies chills, Reports fatigue, Denies fever(s), Denies frequent falls, Reports headache(s), Denies snoring and Reports weakness (generalized) Eyes Eyes: Reports as per HPI, Denies blurry vision, Denies change in vision and Reports photophobia ENT Ears, Nose, Mouth, and Throat: Denies vertigo, Reports headache(s) and Denies neck pain Cardiovascular Cardiovascular: Reports as per HPI, Denies chest pain, Denies lightheadedness, Denies radiating jaw, neck or arm pain, Denies dyspnea and Denies dyspnea on exertion Respiratory Respiratory: Reports as per HPI, Denies chest congestion, Denies cough, Denies dyspnea, Denies dyspnea on exertion, Denies snoring, Denies stridor and Denies wheezing Gastrointestinal Gastrointestinal: Reports as per HPI, Denies abdominal pain, Denies change in bowel habits, Denies nausea and Denies vomiting Musculoskeletal Musculoskeletal: Reports as per HPI, Denies back pain, Denies myalgias, Denies muscle cramps, Denies neck pain and Denies numbness Integumentary/Breasts Skin/Breast: Reports as per HPI and Denies rash Neurologic Neurologic: Reports as per HPI, Reports abnormal movements, Denies abnormal speech, Denies behavioral changes, Denies confusion, Denies vertigo, Denies frequent falls, Reports headache(s), Denies localized weakness, Denies numbness, Denies sensory deficit and Reports weakness (generalized) Psychiatric Psychiatric: Denies behavioral changes and Denies confusion Endocrine Endocrine: Reports fatigue Allergic/Immunologic Allergic/Immunologic: Denies wheezing PFSH Medical History Anxiety CAD (coronary artery disease) mild non-obstructive disease per cardiac cath report from [facility] [place] 09/07/2013 Cardiomyopathy last echocardiogram 01/27/2019, LVEF 50-55%, no regional wall motion abnormalities, mild LVH, mild MR; normal RV size and function Carpal tunnel syndrome Chronic pain syndrome Depression Diabetes DUB (dysfunctional uterine bleeding) Frequent headaches Hyperlipidemia Hyperthyroidism Lactose intolerance Morbid obesity Polycystic ovaries Splenomegaly Tachycardia Surgical History History of arthroscopy of left shoulder History of section x2 History of endometrial ablation Hx of cardiac catheterization Previous back surgery S/P hysterectomy Social History Smoking/Tobacco Use Status: Current-Occasional Tobacco Type: cigarettes Years smoked: 3 Alcohol Intake: never Drug use: Never Substance use type: does not use Current gender identity: female Do you feel safe at home: Yes Do you feel safe in your relationship?: Yes Exam Const General: cooperative, healthy appearing, comfortable, no acute distress, well developed, well groomed and intoxicated appearing Nutritional Appearance: well nourished and obese Orientation: alert, awake and oriented x3 HENMT Head: normal to inspection, no palpable skull fracture, normocephalic and atraumatic Ears: hearing grossly normal bilaterally, external ears normal and TM's normal bilaterally General nose exam: external nose normal Mouth: oral mucosae normal and moist mucous membranes Throat: posterior oropharynx normal Eyes General: appearance normal, both eyes and all related structures Alignment and Position: alignment normal Periorbital: periorbital findings normal Eyelids: eyelids normal Sclera: sclerae normal Cornea: corneas normal Pupils: PERRL EOM: EOM intact bilaterally Neck Neck: normal visual inspection, full ROM, no lymphadenopathy and no meningeal signs Resp Effort & Inspection: normal respiratory effort, able to speak in complete sentences and no respiratory distress Auscultation: clear to auscultation bilaterally, no rales, no rhonchi and no wheezes Cardio Rate: regular rate Rhythm: regular rhythm Heart Sounds: S1 normal and S2 normal GI Inspection: normal to inspection and non-distended Palpation: soft, no hepatosplenomegaly, not firm, no guarding, not rigid and nontender Percussion: normal to percussion Auscultation: normal bowel sounds Back/Spine/Pelvis Cervical Spine: normal cervical lordosis and cervical ROM normal Skin General skin exam: no rashes or lesions noted Neuro General: patient alert, patient awake and patient oriented x3 Cranial Nerves: CN's II-XI intact bilaterally Cognition: normal cognition Speech: speech normal Gait: normal gait Motor: muscle tone normal throughout, strength 5/5 throughout, no pronator drift, no movement abnormalities noted and no fasciculations Sensory Exam: no sensory deficits noted Coordination: [id number] test normal and [id number] test normal Extrem General: normal to inspection, capillary refill normal, no pedal edema and no calf tenderness Psych Appearance: grossly normal and well kempt Mental Status: mental status grossly normal Speech and Movement: speech and movement normal Course Vital Signs Vital signs: Vital Signs Temperature 36.7 C 09/03/20 21: Pulse 106 H 09/03/20 21:25 Respiratory Rate 20 09/03/20 21:25 Blood Pressure 124/76 09/03/20 21:25 Pulse Oximetry 99 09/03/20 21:25 Temperature 36.7 C 09/03/20 21:25 Temperature Source Skin 09/03/20 21:25 Pulse 106 H 09/03/20 21:25 Respiratory Rate 20 09/03/20 21:25 Blood Pressure 124/76 09/03/20 21:25 Blood Pressure Position Supine 10/12/20 21:25 Pulse Oximetry 99 09/03/20 21:25 Oxygen Delivery Method Room Air 09/03/20 21:25 Oxygen Flow Rate 0 09/03/20 21:25 Pain Level 2 09/03/20 21:25
[2020-09-03 22:09] LABS: Abs Immature Grans 0.02 10^3/uL (0.0-0.06); Absolute Basophil Count 0.05 10^3/uL (0.0-0.2); Absolute Eosinophil Count 0.33 10^3/uL (0.0-0.7); Absolute Lymphocyte Count 4.36 10^3/uL (1.2-3.4); Absolute Monocyte Count 0.42 10^3/uL (0.1-0.8); Absolute Neutrophil Count 4.34 10^3/uL (1.2-6.7); Basophils % 0.5; Eosinophils % 3.5; HCT 41.4 % (36.0-46.0); HGB 13.5 g/dL (11.2-15.7); Immature Grans % 0.2; Lymphocytes % 45.8; MCH 28.5 pg (27.0-33.0); MCHC 32.6 % (32.0-36.0); MCV 87.3 fL (80-95); MPV 10.5 fL (8.0-11.0); Monocytes % 4.4; Neutrophils % 45.6; Nucleated RBC 0 %; Platelet Count 212 10^3/uL (130-400); RBC 4.74 10^6/uL (3.93-5.22); RDW 14.7 % (11.7-14.6); RDW-SD 46.5 fL; WBC 9.52 10^3/uL (4.4-10.8)
[2020-09-03 22:31] LABS: ALT 20 U/L (14-59); AST 16 U/L (15-37); Albumin 3.5 g/dL (3.4-5.0); Alkaline Phosphatase 42 U/L (46-116); Anion Gap 12.7 mmol/L (3-11); BUN 22 mg/dL (7-18); Bilirubin, Total 0.4 mg/dL (0.2-1.0); CO2 26.3 mmol/L (21.0-32.0); CREATININE 1.21 mg/dL (0.55-1.02); Calcium 9.3 mg/dL (8.5-10.1); Chloride 99 mmol/L (98-107); Estimated GFR 48.12 (mL/min/1.73m2); Glucose 124 mg/dL (74-106); Magnesium 1.4 mg/dL (1.8-2.4); Potassium 3.6 mmol/L (3.5-5.1); Sodium 138 mmol/L (136-145); Total Protein 7.4 g/dL (6.4-8.2); Troponin I < 0.05 ng/mL (<0.06)
[2020-09-03 22:37] LABS: ETHANOL BLOOD 5.1 mg/dL (<3)
[2020-09-03] MEDS: MAGNESIUM SULFATE 1 GM/100 ML BAG IVPB (22:40)
[2020-09-03] MEDS: SUMAtriptan 6 MG/0.5 ML VIAL SC (23:36)
[2020-09-04] VITALS: BP 126/79; PULSE 90; PULSE 91; RESP 15; O2SAT 96
[2020-09-04 00:01] VITALS: PULSE 93; RESP 21; O2SAT 95
[2020-09-04 00:10] VITALS: PULSE 98; RESP 20; O2SAT 96
[2020-09-04 00:19] VITALS: BP 126/79; PULSE 95; RESP 18; TEMP 36.3; O2SAT 98
== END 2020-09-04 00:20 | disposition home or self-care (01) ==
PROVIDERS: Emergency Provider Physician Assistant; PCP Family Medicine
DX: E86.0 Dehydration (principal); E83.42 Hypomagnesemia; N17.9 Acute kidney failure, unspecified; G43.909 Migraine, unspecified, not intractable, without status migrainosus; R55 Syncope and collapse; E11.9 Type 2 diabetes mellitus without complications; Z79.84 Long term (current) use of oral hypoglycemic drugs
CPT/HCPCS: 36415; 80053; 96361; 96365; 96372; 99284; 80320; 83735; 84484; 85025; J3475

== ENCOUNTER 2020-09-04 00:47 | Emergency (ER) | payer MEDICARE, MEDICAID, SELFPAY ==
[2020-09-04 00:55] VITALS: BP 137/83; PULSE 96; RESP 16; TEMP 36.3; O2SAT 98
--- NOTE | 2020-09-04 00:59 | ED.GENADUL_ITS ---
Discharge Plan Disposition Patient Disposition: OTHER Condition: Stable Discharge Details Chief Complaint: Recheck Clinical Impression: Change in mental status Primary Care Provider: Edie Ellis ED Provider: Taurus Ricardo [place] Meds and New Rx's Prescriptions: No Action metoprolol succinate 50 mg tablet extended release 24 hr 50 mg PO DAILY Qty: 30 RF: 11 vitamin R10-obewc acid 1 EACH tablet 1 ea PO DAILY RF: 0 clonazepam 1 mg tablet 1.5 mg PO HS RF: 0 rosuvastatin [Crestor] 5 MG tablet 10 mg PO QPM RF: 0 naratriptan 2.5 mg tablet 2.5 mg PO BID PRNRF: 0 metformin 500 MG tablet extended release 24 hr 1,000 mg PO BID RF: 0 riboflavin (vitamin B2) [Vitamin B-2] 50 MG tablet 200 mg PO BID RF: 0 pregabalin [Lyrica] 75 MG capsule 100 mg PO TID RF: 0 Bydureon 2 mg/0.65 mL Pen Injector 2 mg subcut QWEEK RF: 0 polyethylene glycol 3350 17 gram/dose Powder 17 g PO DAILY PRNRF: 0 paroxetine HCl 20 mg tablet 40 mg PO DAILY RF: 0 levothyroxine [Synthroid] 25 MCG tablet 50 mcg PO HS RF: 0 magnesium oxide 400 MG tablet 800 mg PO BID RF: 0 furosemide 20 mg Tablet 20 mg PO DAILY RF: 0 omeprazole 20 mg Capsule,Delayed Release(Dr/Ec) 20 mg PO DAILY RF: 0 prochlorperazine maleate 10 mg Tablet 10 mg PO DAILY PRN (Reason: Headache) RF: 0 albuterol sulfate [Ventolin HFA] 90 mcg/actuation Hfa Aerosol Inhaler 2 puff INHALATION QID PRNRF: 0 Narcan 4 mg/actuation [place],Non-Aerosol 1 spray INTRANASAL ONCE PRNRF: 0 valacyclovir 1 gram tablet 500 mg PO QHS RF: 0 ketorolac 10 mg Tablet 10 mg PO TID PRNRF: 0 lamotrigine 100 mg Tablet Extended Release 24hr 100 mg PO HS RF: 0 aspirin 81 mg tablet,delayed release (DR/EC) 81 mg PO DAILY Qty: 14 RF: 0 hydromorphone [Dilaudid] 2 MG tablet 4 mg PO BID RF: 0 melatonin 10 mg Tablet 10 mg PO HS PRNRF: 0 glipizide 10 mg tablet extended release 24hr 10 mg PO BID RF: 0 ondansetron HCl 4 mg tablet 4 mg PO Q8H PRNRF: 0 Medical Decision Making 45 yo female with hx of recent episodes of unresponsive episodes for which she was admitted for last week and had negative cta, mri, eeg and is on outpatient holter monitor, who was seen in the ED within the last few hours after another episode where she was unresponsive for a few seconds. She had fluids done here and labs showed a mild sue and etoh of 5 but denies alcohol use, and she felt better and requested d/c. She states her son declined to come pick her up and she continues to feel dizziness like the room is spinning that she has felt for a few weeks so did not feel like she could walk home so she checked back into the ED. She denies chest pain, pressure, dyspnea, n/v. She arrives with her boyfriend pushing her in a wheel chair and patient stating I just want to go home. Has no focal motor deficits and reassuring HINTS exam. Unclear etiology for her dizziness and unresponsive episodes the last few weeks and with negative workup. She is declining testing now and has capacity to make her own decisions and wants to find a ride home. I did offer an observation admission for recurrent syncope and her dizziness but she declined. Will reassess after she tries to find a ride PT eloped before I could discuss with her again about possible admission, she had capacity to make her own decisions and was not under the influence of drugs or alcohol and do not feel she needs to be called back Differential Diagnosis Differential Diagnosis: peripheral vertigo, syncope, arrythmia HPI General Mode of arrival: wheelchair . Date/Time Provider Initiated Documentation: 09/04/20 00:48 . Limitations to Documentation: no limitations . Information obtained by: patient . History of Present Illness 45 year old F presents to the emergency department with the chief complaint of dizzy, described as moderate, Patient started experiencing this week(s) (3) and it has been constant. No exacerbating factors reported . Related Data Home Medications Medication Instructions Recorded Confirmed rosuvastatin [Crestor] 10 mg PO QPM 06/28/13 09/03/20 metformin 1,000 mg PO BID 03/12/15 09/03/20 riboflavin (vitamin B2) [Vitamin 200 mg PO BID 03/13/15 09/03/20 B-2] levothyroxine [Synthroid] 50 mcg PO HS 03/05/17 09/03/20 magnesium oxide 800 mg PO BID 03/05/17 09/03/20 pregabalin [Lyrica] 100 mg PO TID 03/06/17 09/03/20 vitamin V96-idkpy acid 1 ea PO DAILY 03/11/17 09/03/20 Bydureon 2 mg SUBCUT QWEEK 01/22/19 09/03/20 Narcan 1 spray INTRANASAL ONCE PRN 03/10/19 09/03/20 albuterol sulfate [Ventolin HFA] 2 puff INHALATION QID PRN 03/10/19 09/03/20 furosemide 20 mg PO DAILY 03/10/19 09/03/20 omeprazole 20 mg PO DAILY 03/10/19 09/03/20 prochlorperazine maleate 10 mg PO DAILY PRN 03/10/19 09/03/20 metoprolol succinate 50 mg 50 mg PO DAILY #30 tab 03/21/19 09/03/20 tablet,extended release 24 hr valacyclovir 1 gram tablet 500 mg PO QHS 03/21/19 09/03/20 ketorolac 10 mg PO TID PRN 09/28/19 09/03/20 lamotrigine 100 mg PO HS 09/28/19 09/03/20 aspirin 81 mg PO DAILY #14 tab 09/30/19 09/03/20 polyethylene glycol 3350 17 g PO DAILY PRN 12/22/19 09/03/20 clonazepam 1 mg tablet 1.5 mg PO HS tab 12/28/19 09/03/20 naratriptan 2.5 mg tablet 2.5 mg PO BID PRN 03/27/20 09/03/20 paroxetine HCl 20 mg tablet 40 mg PO DAILY tab 03/27/20 09/03/20 hydromorphone [Dilaudid] 4 mg PO BID 08/27/20 09/03/20 melatonin 10 mg PO HS PRN 08/27/20 08/27/20 glipizide 10 mg PO BID 09/03/20 09/03/20 ondansetron HCl 4 mg PO Q8H PRN 09/03/20 09/03/20 Previous Rx's Medication Instructions Recorded metoprolol succinate 50 mg 50 mg PO DAILY #30 tab 03/21/19 tablet,extended release 24 hr aspirin 81 mg PO DAILY #14 tab 09/30/19 Allergies Allergy/AdvReac Type Severity Reaction Status Date / Time Penicillins Allergy Severe throat Verified 09/04/20 01:03 closes Sulfa (Sulfonamide Allergy Mild Hives Verified 09/04/20 01:03 Antibiotics) General RENATO: 3 Review of Systems All systems reviewed & are unremarkable except as noted in HPI and below Constitutional Constitutional: Denies chills, Denies fever(s) and Denies weakness Cardiovascular Cardiovascular: Denies chest pain and Denies dyspnea Respiratory Respiratory: Denies cough and Denies dyspnea Gastrointestinal Gastrointestinal: Denies abdominal pain, Denies nausea and Denies vomiting Musculoskeletal Musculoskeletal: Denies joint swelling Neurologic Neurologic: Denies weakness Psychiatric Psychiatric: Denies depression [facility] Medical History Anxiety CAD (coronary artery disease) mild non-obstructive disease [place] [facility] [place] Cardiomyopathy last echocardiogram 01/27/2019, LVEF 50-55%, no regional wall motion abnormalities, mild LVH, mild MR; normal RV size and function Carpal tunnel syndrome Chronic pain syndrome Depression Diabetes DUB (dysfunctional uterine bleeding) Frequent headaches Hyperlipidemia Hyperthyroidism Lactose intolerance Morbid obesity Polycystic ovaries Splenomegaly Tachycardia Surgical History History of arthroscopy of left shoulder History of section x2 History of endometrial ablation Hx of cardiac catheterization Previous back surgery S/P hysterectomy Social History Smoking/Tobacco Use Status: Current-Occasional Tobacco Type: cigarettes Years smoked: 3 Alcohol Intake: never Drug use: Never Substance use type: does not use Current gender identity: female Do you feel safe at home: Yes Do you feel safe in your relationship?: Yes Exam Const General: no acute distress Orientation: alert HENMT Head: normal to inspection Ears: external ears normal General nose exam: external nose normal Mouth: moist mucous membranes Eyes General: appearance normal, both eyes and all related structures Neck Neck: normal visual inspection Resp Effort & Inspection: normal respiratory effort and able to speak in complete sentences Cardio Rate: regular rate Skin General skin exam: no rashes or lesions noted Neuro General: patient alert and patient oriented x3 Extrem General: capillary refill normal Psych Mental Status: mental status grossly normal
== END 2020-09-04 01:15 | disposition other institution (70) ==
PROVIDERS: Emergency Provider Emergency Medicine; PCP Family Medicine
DX: R41.82 Altered mental status, unspecified (principal); Z53.29 Procedure and treatment not carried out because of patient's decision for other reasons
CPT/HCPCS: 99281; 99282

== ENCOUNTER 2020-09-15 05:31 | Emergency (ER) | payer MEDICARE, MEDICAID, SELFPAY ==
--- NOTE | 2020-09-15 05:30 | RT.EKG_ITS ---
APPROVED REPORT Exam: Resting ECG Patient Location: E HR:94 bpm ECG Measurements Heart Rate 94 AXIS IL 164 P 58 QRSd 81 QRS 1 QT 389 T 29 QTc 488 Conclusion EKG 5: 43 Rate 94, sinus rhythm, no significant ST elevation or depression, no evidence of STEMI, no evidence o f epsilon wave, delta wave, Brugada syndrome, Wellens syndrome, or other significant abnormality.
[2020-09-15 05:34] VITALS: BP 131/78; PULSE 90; RESP 16; TEMP 36.4; O2SAT 96
--- NOTE | 2020-09-15 05:57 | ED.GENADUL_ITS ---
Discharge Plan Disposition Patient Disposition: HOME Condition: Good Discharge Details Clinical Impression: Contusion of right shoulder, Syncope, Contusion of head, Fall Primary Care Provider: Edie Ellis ED Provider: Edin Taylor Home Meds and New Rx's Prescriptions: Continued metoprolol succinate 50 mg tablet extended release 24 hr 50 mg PO DAILY Qty: 30 RF: 11 vitamin [id number] acid 1 EACH tablet 1 ea PO DAILY RF: 0 clonazepam 1 mg tablet 1.5 mg PO HS RF: 0 rosuvastatin [Crestor] 5 MG tablet 10 mg PO QPM RF: 0 naratriptan 2.5 mg tablet 2.5 mg PO BID PRNRF: 0 metformin 500 MG tablet extended release 24 hr 500 mg PO BID RF: 0 riboflavin (vitamin B2) [Vitamin B-2] 50 MG tablet 200 mg PO BID RF: 0 pregabalin [Lyrica] 75 MG capsule 100 mg PO TID RF: 0 Bydureon 2 mg/0.65 mL Pen Injector 2 mg subcut QWEEK RF: 0 polyethylene glycol 3350 17 gram/dose Powder 17 g PO DAILY PRNRF: 0 paroxetine HCl 20 mg tablet 40 mg PO DAILY RF: 0 levothyroxine [Synthroid] 25 MCG tablet 50 mcg PO HS RF: 0 magnesium oxide 400 MG tablet 800 mg PO BID RF: 0 furosemide 20 mg Tablet 20 mg PO DAILY RF: 0 omeprazole 20 mg Capsule,Delayed Release(Dr/Ec) 20 mg PO DAILY RF: 0 prochlorperazine maleate 10 mg Tablet 10 mg PO DAILY PRN (Reason: Headache) RF: 0 albuterol sulfate [Ventolin HFA] 90 mcg/actuation Hfa Aerosol Inhaler 2 puff INHALATION QID PRNRF: 0 Narcan 4 mg/actuation [place],Non-Aerosol 1 spray INTRANASAL ONCE PRNRF: 0 valacyclovir 1 gram tablet 500 mg PO QHS RF: 0 ketorolac 10 mg Tablet 10 mg PO TID PRNRF: 0 lamotrigine 100 mg Tablet Extended Release 24hr 100 mg PO HS RF: 0 aspirin 81 mg tablet,delayed release (DR/EC) 81 mg PO DAILY Qty: 14 RF: 0 hydromorphone [Dilaudid] 2 MG tablet 4 mg PO BID RF: 0 melatonin 10 mg Tablet 10 mg PO HS PRNRF: 0 ondansetron HCl 4 mg tablet 4 mg PO Q8H PRNRF: 0 Discharge Instructions Instructions: Syncope (ED), Contusion in Adults (ED) Additional Instructions: At this time the CAT scan of your brain and neck, as well as the x-rays of your elbow and shoulder demonstrate no signs of fracture. 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 If you notice any worsening of your symptoms, or any new symptoms such as vomiting, diarrhea, fever, chills, shortness of breath, chest pain, numbness, weakness, or fainting , please return immediately to the emergency department for reeval uation. Please follow up with your primary care provider as soon as possible for reassessment and reevaluation. As always, it was a pleasure participating in your medical care today. Referrals: Edie Ellis MD [Primary Care Provider] - Medical Decision Making This is a 45-year-old female with a past medical history of multiple episodes of syncope, a nonischemic cardiomyopathy during subsequent resolution with no residual significant deficit in EF per last echocardiogram in 2019 with her ejection fraction having recovered to 55%, and on a betablocker, as well as a recent work-up and admission 2 weeks ago with unremarkable EEG and neurology evaluation here at [facility], including negative cranial imaging including negative MRI. She presents today for evaluation of head pain right shoulder pain right elbow pain after repeat episode of syncope. Patient states that she got up in the middle of the night to go to the bathroom, and the last thing she remembered was waking up on her kitchen floor. She does not recall going to the bathroom or any other symptoms. She did not urinate on herself or defecate on her self. No additional components to her history. Then when 1 was contacted, and EMS brought the patient to the ER for further evaluation. EMS noted stable vital signs, and a good blood sugar. Currently the patient complains of pain in the right side of her head, her neck, and in her right shoulder and elbow. She denies any other significant new pains. She denies any focal numbness tingling or focal weakness. She denies any IV or illicit drug use. No other complaints at this time. Exam is relatively unremarkable. Normal neurologic exam with no signs of focal neurologic deficit. Patient denies any IV or illicit drug use. Exam shows no evidence of significant cranial or musculoskeletal trauma however she does have mild subjective tenderness on her right elbow and right shoulder. Good range of motion for both of these joints, no signs of significant trauma to the head. We will treat the patient's pain, get a CT scan of the head and neck if concern for intrathoracic etiology from fall/syncope. In regards to the etiology for syncope, it appears upon review of records that this is not a new thing for the patient, and she has had multiple notable work-ups with no clear etiology for her symptoms. Screening EKG shows no significant abnormality suggestive of a life-threatening dysrhythmia at this time. Patient has had a prolonged cardiac evaluation here, and neurologic evaluation. We will continue to monitor closely, evaluate for potential electrolyte abnormalities, monitor closely and reassess. 7:24 AM Laboratory work-up is returned notably unremarkable, no electrolyte abnormalities, normal hemoglobin. CT scan and x-rays demonstrate no evidence of acute process per virtual radiology. No signs of bleed or fracture. On reassessment patient C-spine was cleared, she is feeling much better. She does admit to mild neck stiffness and mild right-sided headache but otherwise unremarkable on repeat exam. Repeat neurologic exam continues to be normal. Patient states that she feels well and would like to go home. With the notable extensive work-up that the patient has received on an outpatient and inpatient basis, and with no evidence of neurologic deficit, significant cardiac abnormality on EKG, and an otherwise benign work-up, do feel we can respect this patient's wishes discharge. Did recommend continued Tylenol and Motrin at home for any headache, as well as plenty of rest. Discussed red flags for which to return. was at bedside for all of this. I have extensively reviewed the treatment plan and discharge instructions with the patient and their family. I have addressed all patient concerns at this time. The patient and family was made aware of what symptoms to monitor for that would warrant a return to the emergency department. Discussed the plan with the patient and family, they demonstrate verbal understanding and agreement with our assessment and plan at this time. EKG 5: 43 Rate 94, sinus rhythm, no significant ST elevation or depression, no evidence of STEMI, no evidence of epsilon wave, delta wave, Brugada syndrome, Wellens syndrome, or other significant abnormality. FINDINGS: Brain: Abraham white matter distinction is maintained throughout the brain. No radiographic evidence of intracranial hemorrhage. No CT evidence of mass hemorrhage or acute infarction. Cerebral ventricles: Ventricles are of normal size and configuration. Bones/joints: Unremarkable. No acute fracture. Paranasal sinuses: Visualized sinuses are unremarkable. No fluid levels. Mastoid air cells: Visualized mastoid air cells are well aerated. Soft tissues: Unremarkable. Other findings: No intra or extra-axial masses, lesions or collections. IMPRESSION: No acute intracranial process is appreciated. FINDINGS: Bones/joints: alignment is normal. posterior vertebral line and the spinal laminar line normal odontoid process normal no fracture Discs/Spinal canal/Neural foramina: Mild degenerative disc disease diffusely Soft tissues: Unremarkable. Lungs: Lung apices are normal. IMPRESSION: No fracture. Thank you for allowing us to participate in the care of your patient. Dictated and Authenticated by: Hero Hardy MD 09/15/2020 6:49 AM Eastern Time ([place] & [place]) FINDINGS: Bones/joints: Mild degenerative joint disease is present with small osteophyte formation on the coronoid process of the ulna. No fracture or other acute bone or joint abnormalities are seen. Soft tissues: There is soft tissue swelling over the olecranon. IMPRESSION: No fracture. Thank you for allowing us to participate in the care of your patient. Dictated and Authenticated by: Manohar Mcdonald MD 09/15/2020 6:54 AM Eastern Time ([place] & [place]) FINDINGS: Bones/joints: Normal. Soft tissues: Normal. IMPRESSION: No acute findings. Thank you for allowing us to participate in the care of your patient. Dictated and Authenticated by: Manohar Mcdonald MD 09/15/2020 6:56 AM Eastern Time ([place] & [place]) HPI General Date/Time Provider Initiated Documentation: 09/15/20 05:57 . HPI Narrative: This is a 45-year-old female with a past medical history of multiple episodes of syncope, a nonischemic cardiomyopathy during subsequent resolution with no residual significant deficit in EF per last echocardiogram in 2019 with her ejection fraction having recovered to 55%, and on a betablocker, as well as a recent work-up and admission 2 weeks ago with unremarkable EEG and neurology evaluation here at [facility], including negative cranial imaging including negative MRI. She presents today for evaluation of head pain right shoulder pain right elbow pain after repeat episode of syncope. Patient states that she got up in the middle of the night to go to the bathroom, and the last thing she remembered was waking up on her kitchen floor. She does not recall going to the bathroom or any other symptoms. She did not urinate on herself or defecate on her self. No additional components to her history. Then when 1 was contacted, and EMS brought the patient to the ER for further evaluation. EMS noted stable vital signs, and a good blood sugar. Currently the patient complains of pain in the right side of her head, her neck, and in her right shoulder and elbow. She denies any other significant new pains. She denies any focal numbness tingling or focal weakness. She denies any IV or illicit drug use. No other complaints at this time. Related Data Home Medications Medication Instructions Recorded Confirmed rosuvastatin [Crestor] 10 mg PO QPM 06/28/13 09/15/20 metformin 500 mg PO BID 03/12/15 09/15/20 riboflavin (vitamin B2) [Vitamin 200 mg PO BID 03/13/15 09/15/20 B-2] levothyroxine [Synthroid] 50 mcg PO HS 03/05/17 09/15/20 magnesium oxide 800 mg PO BID 03/05/17 09/15/20 pregabalin [Lyrica] 100 mg PO TID 03/06/17 09/15/20 vitamin [id number]-[id number] acid 1 ea PO DAILY 03/11/17 09/15/20 Bydureon 2 mg SUBCUT QWEEK 01/22/19 09/15/20 Narcan 1 spray INTRANASAL ONCE PRN 03/10/19 09/15/20 albuterol sulfate [Ventolin HFA] 2 puff INHALATION QID PRN 03/10/19 09/15/20 furosemide 20 mg PO DAILY 03/10/19 09/15/20 omeprazole 20 mg PO DAILY 03/10/19 09/15/20 prochlorperazine maleate 10 mg PO DAILY PRN 03/10/19 09/15/20 metoprolol succinate 50 mg 50 mg PO DAILY #30 tab 03/21/19 09/15/20 tablet,extended release 24 hr valacyclovir 1 gram tablet 500 mg PO QHS 03/21/19 09/15/20 ketorolac 10 mg PO TID PRN 09/28/19 09/15/20 lamotrigine 100 mg PO HS 09/28/19 09/15/20 aspirin 81 mg PO DAILY #14 tab 09/30/19 09/15/20 polyethylene glycol 3350 17 g PO DAILY PRN 12/22/19 09/15/20 clonazepam 1 mg tablet 1.5 mg PO HS tab 12/28/19 09/15/20 naratriptan 2.5 mg tablet 2.5 mg PO BID PRN 03/27/20 09/15/20 paroxetine HCl 20 mg tablet 40 mg PO DAILY tab 03/27/20 09/15/20 hydromorphone [Dilaudid] 4 mg PO BID 08/27/20 09/15/20 melatonin 10 mg PO HS PRN 08/27/20 09/15/20 ondansetron HCl 4 mg PO Q8H PRN 09/03/20 09/15/20 Previous Rx's Medication Instructions Recorded metoprolol succinate 50 mg 50 mg PO DAILY #30 tab 03/21/19 tablet,extended release 24 hr aspirin 81 mg PO DAILY #14 tab 09/30/19 Allergies Allergy/AdvReac Type Severity Reaction Status Date / Time Penicillins Allergy Severe throat Verified 09/15/20 05:38 closes Sulfa (Sulfonamide Allergy Mild Hives Verified 09/15/20 05:38 Antibiotics) General Stated Complaint: Dizzy/Sync RENATO: 3 Review of Systems All systems reviewed & are unremarkable except as noted in HPI and below PFSH Medical History Anxiety CAD (coronary artery disease) mild non-obstructive disease [place] [facility] [place] Cardiomyopathy last echocardiogram 01/27/2019, LVEF 50-55%, no regional wall motion abnormalities, mild LVH, mild MR; normal RV size and function Carpal tunnel syndrome Chronic pain syndrome Depression Diabetes DUB (dysfunctional uterine bleeding) Frequent headaches Hyperlipidemia Hyperthyroidism Lactose intolerance Morbid obesity Polycystic ovaries Splenomegaly Tachycardia Surgical History History of arthroscopy of left shoulder History of section x2 History of endometrial ablation Hx of cardiac catheterization Previous back surgery S/P hysterectomy Social History Smoking/Tobacco Use Status: Current-Occasional Tobacco Type: cigarettes Years smoked: 3 Alcohol Intake: never Drug use: Never Substance use type: does not use Current gender identity: female Do you feel safe at home: Yes Do you feel safe in your relationship?: Yes Exam Narrative Exam Narrative: 1.Const: Well-nourished, Well-developed, appearing stated age 2.Eyes: PERRL, no conjunctival injection, and symmetrical lids. 3.ENT: Atraumatic external nose and ears. Moist MM. Neck: Symmetric, trachea midline, No thyromegaly. 4.CVS: +S1/S2, No murmurs or gallops. Peripheral pulses 2+ and equal in all extremities. Brisk capillary refill in all extremities. 5.RESP: Unlabored respiratory effort. Clear to auscultation bilaterally. No wheezes rales or rhonchi 6.GI: Soft, Nontender/Nondistended, No hepatosplenomegaly. No guarding or rebound. 7.MSK: Normocephalic/Atraumatic, Extremities w/o deformity or ttp No cyanosis or clubbing, Normal movement of all extremities. Mild reproducible tenderness on palpation of the right side of the mu-ism, as well as mild tenderness at the base of the head by C1 and C2. No significant midline tenderness. No nuchal rigidity. 8.Skin: Warm, Dry. No rashes or lesions. 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 Sensation grossly intact, no focal neurologic deficits. All 6 cardinal planes of vision are fully intact. No evidence of rotatory or vertical nystagmus. The patient demonstrated a normal [id number]-tiwe-togcre, good dexterity. There was no evidence of dysdiadochokinesia. l. Vwdf-vt-gzqi testing was normal. Sensation was intact bilaterally as well as muscle strength bilaterally for all extremities. Patient was able to verbalize butter cup with no slurring, or miss pronunciation. 10.Psych: (AAO) x3. Appropriate mood and affect Course Vital Signs Vital signs: Vital Signs Temperature 36.4 C L 09/15/20 05:34 Pulse 90 09/15/20 05:34 Respiratory Rate 16 09/15/20 05:34 Blood Pressure 131/78 09/15/20 05:34 Pulse Oximetry 96 09/15/20 05:34 Temperature 36.4 C L 09/15/20 05:34 Temperature Source Skin 09/15/20 05:34 Pulse 90 09/15/20 05:34 Respiratory Rate 16 09/15/20 05:34 Blood Pressure 131/78 09/15/20 05:34 Blood Pressure Position Supine 09/15/20 05:34 Pulse Oximetry 96 09/15/20 05:34 Oxygen Delivery Method Room Air 09/15/20 05:34 Oxygen Flow Rate 0 09/15/20 05:34
[2020-09-15 06:00] LABS: Abs Immature Grans 0.02 10^3/uL (0.0-0.06); Absolute Basophil Count 0.07 10^3/uL (0.0-0.2); Absolute Eosinophil Count 0.45 10^3/uL (0.0-0.7); Absolute Lymphocyte Count 3.33 10^3/uL (1.2-3.4); Absolute Monocyte Count 0.39 10^3/uL (0.1-0.8); Absolute Neutrophil Count 4.32 10^3/uL (1.2-6.7); Basophils % 0.8; Eosinophils % 5.2; HCT 42.5 % (36.0-46.0); HGB 13.6 g/dL (11.2-15.7); Immature Grans % 0.2; Lymphocytes % 38.8; MCH 28.5 pg (27.0-33.0); MCV 89.1 fL (80-95); MPV 10.4 fL (8.0-11.0); Monocytes % 4.5; Neutrophils % 50.5; Nucleated RBC 0 %; Platelet Count 215 10^3/uL (130-400); RBC 4.77 10^6/uL (3.93-5.22); RDW 14.6 % (11.7-14.6); RDW-SD 47.2 fL; WBC 8.58 10^3/uL (4.4-10.8)
[2020-09-15 06:13] LABS: ALT 17 U/L (14-59); AST 13 U/L (15-37); Albumin 3.3 g/dL (3.4-5.0); Alkaline Phosphatase 48 U/L (46-116); Anion Gap 5.5 mmol/L (3-11); BUN 18 mg/dL (7-18); Bilirubin, Total 0.3 mg/dL (0.2-1.0); CO2 28.5 mmol/L (21.0-32.0); Calcium 9.1 mg/dL (8.5-10.1); Chloride 105 mmol/L (98-107); Glucose 145 mg/dL (74-106); Potassium 4.1 mmol/L (3.5-5.1); Sodium 139 mmol/L (136-145); Total Protein 6.9 g/dL (6.4-8.2)
--- NOTE | 2020-09-15 06:20 | DI.RAD_ITS ---
EXAM: XR ELBOW RT COMPLETE CLINICAL HISTORY: fall, right shoulder pain TECHNIQUE: COMPARISON: CR XR ELBOW 2 VIEW RIGHT from 08/27/2020 FINDINGS: Three views were obtained. There is marginal osteophyte formation of the ulnar articulation. There is no evidence of an elbow joint effusion or hemarthrosis. No fracture is seen. IMPRESSION: RADIATION DOSE DELIVERED: Total DLP
--- NOTE | 2020-09-15 06:21 | DI.RAD_ITS ---
EXAM: XR SHOULDER RT COMPLETE 2+V CLINICAL HISTORY: fall, right shoulder pain TECHNIQUE: COMPARISON: CR XR shoulder RT complete 2+V from 07/26/2019 FINDINGS: Five views were obtained. There is no evidence of a fracture or dislocation. IMPRESSION: RADIATION DOSE DELIVERED: Total DLP
--- NOTE | 2020-09-15 06:30 | DI.CT_ITS ---
EXAM: CT HEAD CERVICAL SPINE WO COMPARISON: CT CT BRAIN NECK CTA from 08/28/2020 FINDINGS: CT examination of the cervical spine was performed without contrast administration. There is no evide nce of acute cervical spine fracture or dislocation. Tracheolaryngeal structures appear intact. No ce rvical mass or adenopathy. Intervertebral disc spaces are well maintained. Noncontrast cranial CT was performed. Ventricular system is normal in appearance. No evidence of acut e intracranial hemorrhage, mass effect, or midline shift. No calvarial fracture. The orbital and temp oral bone structures appear intact. IMPRESSION: No evidence of acute cervical spine injury. No evidence of acute intracranial injury. RADIATION DOSE DELIVERED: 1,768.26mGy.cm Total DLP 1,768.26mGy.cm Total DLP DATA REPOSITORY: All CT scans at this facility are submitted to the National Radiology Data Registry (NRDR) Dose Index Registry (DIR) with the [employer] ([employer]). RADIATION OPTIMIZATION: All CT scans at this facility use at least one of these dose optimization te chniques: automated exposure control; mA and/or kV adjustment per patient size (includes targeted exa ms where dose is matched to clinical indication); or iterative reconstruction.
[2020-09-15] MEDS: Normal Saline 500 ML IV (06:35)
[2020-09-15 06:43] VITALS: BP 126/71; PULSE 83; O2SAT 95
[2020-09-15] MEDS: Acetaminophen 500 MG TAB 1000 MG PO (06:43)
--- NOTE | 2020-09-15 06:49 | DI.VRAD_ITS ---
PROCEDURE INFORMATION: Exam: CT Head Without Contrast Exam date and time: 09/15/2020 5:43 AM Age: 45 years old Clinical indication: Injury or trauma; Fall; Blunt trauma (contusions or hematomas); Consciousness not specified; Injury date: 09/15/20 TECHNIQUE: Imaging protocol: Computed tomography of the head without contrast. Radiation optimization: All CT scans at this facility use at least one of these dose optimization techniques: automated exposure control; mA and/or kV adjustment per patient size (includes targeted exams where dose is matched to clinical indication); or iterative reconstruction. COMPARISON: CT HEAD WO CONTRAST 08/27/2020 1:42 PM FINDINGS: Brain: Abraham white matter distinction is maintained throughout the brain. No radiographic evidence of intracranial hemorrhage. No CT evidence of mass hemorrhage or acute infarction. Cerebral ventricles: Ventricles are of normal size and configuration. Bones/joints: Unremarkable. No acute fracture. Paranasal sinuses: Visualized sinuses are unremarkable. No fluid levels. Mastoid air cells: Visualized mastoid air cells are well aerated. Soft tissues: Unremarkable. Other findings: No intra or extra-axial masses, lesions or collections. IMPRESSION: No acute intracranial process is appreciated. PROCEDURE INFORMATION: Exam: CT Cervical Spine Without Contrast Exam date and time: 09/15/2020 5:43 AM Age: 45 years old Clinical indication: Injury or trauma; Fall; Blunt trauma (contusions or hematomas); Consciousness not specified; Injury date: 09/15/20 TECHNIQUE: Imaging protocol: Computed tomography images of the cervical spine without contrast. Radiation optimization: All CT scans at this facility use at least one of these dose optimization techniques: automated exposure control; mA and/or kV adjustment per patient size (includes targeted exams where dose is matched to clinical indication); or iterative reconstruction. COMPARISON: CT HEAD WO CONTRAST 08/27/2020 1:42 PM FINDINGS: Bones/joints: alignment is normal. posterior vertebral line and the spinal laminar line normal odontoid process normal no fracture Discs/Spinal canal/Neural foramina: Mild degenerative disc disease diffusely Soft tissues: Unremarkable. Lungs: Lung apices are normal. IMPRESSION: No fracture. Dictated and Authenticated by: Hero Hardy MD. Ordering:ANGELA Jesus MD
[2020-09-15 06:50] VITALS: O2SAT 94
--- NOTE | 2020-09-15 06:55 | DI.VRAD_ITS ---
PROCEDURE INFORMATION: Exam: XR Right Elbow Exam date and time: 09/15/2020 6:18 AM Age: 45 years old Clinical indication: Injury or trauma; Blunt trauma (contusions or hematomas); Elbow; Right; Injury date: 09/15/20; Injury details: Fall trauma, c-collar in place, supine stretcher exam TECHNIQUE: Imaging protocol: XR Right elbow. Views: 3 or more views. COMPARISON: CR XR ELBOW 2 VIEW RIGHT 08/27/2020 1:57 PM FINDINGS: Bones/joints: Mild degenerative joint disease is present with small osteophyte formation on the coronoid process of the ulna. No fracture or other acute bone or joint abnormalities are seen. Soft tissues: There is soft tissue swelling over the olecranon. IMPRESSION: No fracture. Dictated and Authenticated by: Manohar Mcdonald MD. Ordering:ANGELA Jesus MD
--- NOTE | 2020-09-15 06:56 | DI.VRAD_ITS ---
PROCEDURE INFORMATION: Exam: XR Right Shoulder Exam date and time: 09/15/2020 6:21 AM Age: 45 years old Clinical indication: Injury or trauma; Blunt trauma (contusions or hematomas); Shoulder; Right; Injury date: 09/15/20; Injury details: Fall trauma, c-collar in place, supine stretcher exam TECHNIQUE: Imaging protocol: XR Right shoulder. Views: 2 or more views. COMPARISON: No relevant prior studies available. FINDINGS: Bones/joints: Normal. Soft tissues: Normal. IMPRESSION: No acute findings. Dictated and Authenticated by: Manohar Mcdonald MD. Ordering:ANGELA Jesus MD
[2020-09-15 07:01] VITALS: BP 130/82; PULSE 89; O2SAT 95
[2020-09-15 07:24] VITALS: O2SAT 96
[2020-09-15 07:38] VITALS: BP 130/82; PULSE 89; O2SAT 96
== END 2020-09-15 07:30 | disposition home or self-care (01) ==
PROVIDERS: Emergency Provider Student in an Organized Health Care Education/Training Program; PCP Family Medicine
DX: S40.011A Contusion of right shoulder, initial encounter (principal); S00.03XA Contusion of scalp, initial encounter; M25.521 Pain in right elbow; R55 Syncope and collapse; M54.2 Cervicalgia; W01.190A Fall on same level from slipping, tripping and stumbling with subsequent striking against furniture, initial encounter; E11.9 Type 2 diabetes mellitus without complications; Z79.84 Long term (current) use of oral hypoglycemic drugs
CPT/HCPCS: 36415; 80053; 93005; 96360; 99285; 70450; 72125; 73030; 73080; 85025; 93010

== ENCOUNTER 2020-09-19 02:29 | Outpatient (CLI) | payer MEDICARE, MEDICAID, SELFPAY ==
--- NOTE | 2020-09-19 10:25 | DI.US_ITS ---
APPROVED REPORT EXAM: Comprehensive 2D, Doppler, and color-flow Echocardiogram Patient Location: Out-Patient Production Clerk: Tahmina Beltran RDCS (AE) Indications: SOB, Syncope, Cardiomyopathy Other Information Study Quality: Fair Conclusion Normal left ventricular wall thickness and chamber size. Systolic function is borderline. Estimated ejection fraction is 50 to 55% with mild global hypokinesis Normal right ventricular size and systolic function Both atria are normal in size There are no significant structural valvular abnormalities or hemodynamically significant valvular fi ndings Wall motion Left Ventricle The left ventricle is normal size. Left ventricular systolic function is mildly decreased. Left ventr icular systolic function is borderline. There is normal left ventricular wall thickness. There is cristofer bal hypokinesis of the left ventricle. There is no ventricular septal defect visualized. LVEF is 45-5 0%. LVEF is 50-55%. Right Ventricle The right ventricle is normal size. The right ventricular systolic function is normal. Atria The left atrium size is normal. The right atrium size is normal. The interatrial septum is intact wit h no evidence for an atrial septal defect. Aortic Valve The aortic valve is normal in structure. Aortic valve is trileaflet. There is no aortic valvular sten osis. No aortic regurgitation is present. Mitral Valve The mitral valve is normal in structure. No evidence of mitral valve stenosis. Trace mitral regurgita tion. Tricuspid Valve The tricuspid valve is normal in structure. There is no tricuspid valve stenosis. Trace tricuspid reg urgitation. Unable to assess PA pressure. Pulmonic Valve The pulmonary valve is normal in structure. There is no pulmonic valvular stenosis. Trace pulmonic re gurgitation. Great Vessels The aortic root is normal in size. The ascending aorta is normal in size. Aortic arch is normal in ca liber. IVC is normal in size and collapses >50% with inspiration. Pericardium There is no pericardial effusion. 2D Dimensions IVSD d PLAX 1.01 cm F: 0.6-1.0 LV Vol A2C d MOD 119.5 mL LVPW d PLAX 1.04 cm F: 0.6 - 1.0 LV Vol A4C d MOD 103.5 mL LVID d PLAX 4.80 cm F: 3.8 - 5.2 LA vol/ BSA A2C s A-L 20.9 mL/m2 LVDs 3.80 cm F: 2.2 - 3.5 LA vol/ BSA A4C s A-L 16.1 mL/m2 Ao Root d 2.40 cm F: 2.7 - 3.3 LA Vol/ BSA Biplane s A-L 18.4 mL/m2 RA Area A4C 14.18 cm2 LA Area A4C s MOD 14.14 cm2 RA Vol/ BSA A4C s A-L 19.5 mL/m2 LA Area A2C s MOD 16.16 cm2 Ao Asc Diam d 3.20 cm F: 2.3 - 3.1 LV EF A4C MOD 42.0 % LV EF Teichholz 41.2 % LV EF A2C MOD 41.5 % LVEF (Mobley's) 41.68 % F: 54 - 74 LV EF Biplane MOD 41.7 % LV Volume 85.38 mL F: 46 - 106 SV 46.92 mL LV Volume Index 44.23 mL/m2 F: 29 - 61 SV Index 24.25 mL/m2 LV Vol Biplane MOD 112.6 mL FS 20.15 % M-Mode TAPSE 2.02 cm (M/F) >1.7 LV Diastology MV E' medial 0.084 (>0.07 m/s) E/A Ratio 1.0 LV E/e MED 9.75 (<14) MV E Vmax 0.82 (0.4-1.3 m/s) MV E' lateral 0.105 (>0.1 m/s) MV A Vmax 0.80 (0.4-1.3 m/s) LV E/e LAT 7.75 (<14) MV E/A Ratio 0.98 MV E/E' medial 9.77 MV E/E' lateral 7.80 Aortic Valve LVOT Area 2.83 cm2 AoV Area Vmax 2.26 cm2 LVOT Vmax 0.97 m/s AoV Area/ BSA (Vmax) 1.17 cm2/m2 LVOT Mean Jorge A. 0.65 m/s WILLIAM Mean Jorge A. 2.17 cm2 LVOT Peak Grad 3.8 mmHg WILLIAM Mean Jorge A. Index 1.12 cm2/m2 LVOT Mean Grad 2.0 mmHg LVOT VTI 0.210 m LVOT Diam s 1.85 cm AoV Vmax 1.22 m/s Velocity Ratio 0.79 AoV Mean Jorge A. 0.85 m/s AoV Peak Grad 5.9 mmHg LVOT SV 59.54 mL AoV Mean Grad 3.2 mmHg AoV VTI 0.240 m AoV Area VTI 2.48 cm2 AoV Area/ BSA (VTI) 1.28 cm/m2 Mitral Valve MV DT 228 (160-240 msec) MV PHT 66 msec MV Area PHT 3.33 cm2 Pulmonary Valve PV Vmax 1.06 (0.5-1.5 m/s) RVOT Peak Gr. 1.65 mmHg PV Peak Grad 4.5 mmHg RVOT Mean Gr. 0.90 mmHg PV Mean Grad 2.1 mmHg RVOT VTI 0.138 m PV VTI 0.230 m RVOT Vmax 0.64 m/s
--- NOTE | 2020-09-28 11:54 | W.CARDEVENT ---
Date of service: 09/28/20 Time of Service: 11:54 Cardiac Event Recorder Referring Provider:: kimi Indications:: syncope Cardiac Event Note: This is a 30-day event monitor ordered for the indication of syncope. ?The patient was in normal sinus rhythm for the majority of the recording with an average heart rate of 87 bpm. ?There were no episodes of atrial fibrillation, no pauses greater than 3 seconds and no evidence of high degree heart block. ?There were 3 automatically detected events which were associated with sinus rhythm and sinus tachycardia. ?There were 7 patient triggered events which were mostly associated with sinus rhythm and occasional PVC. The patient had a 4 beat run of NSVT but no symptoms were recorded at the time.
== END 2020-09-19 02:49 ==
PROVIDERS: PCP Family Medicine; Visit Provider Family Medicine
DX: R06.02 Shortness of breath (principal); R55 Syncope and collapse; I42.9 Cardiomyopathy, unspecified
CPT/HCPCS: 93306

== ENCOUNTER 2020-09-26 14:41 | Outpatient (REF) | payer MEDICARE, MEDICAID, SELFPAY ==
[2020-09-26 19:46] LABS: BUN 16 mg/dL (7-18); CREATININE 0.83 mg/dL (0.55-1.02); Calcium 9.2 mg/dL (8.5-10.1); Chloride 103 mmol/L (98-107); Glucose 162 mg/dL (74-106); Potassium 4.3 mmol/L (3.5-5.1); Sodium 140 mmol/L (136-145)
== END 2020-09-26 15:01 ==
LOC: NCHCN 14:41
PROVIDERS: PCP Family Medicine; Visit Provider Family Medicine
DX: E11.9 Type 2 diabetes mellitus without complications (principal); R55 Syncope and collapse
CPT/HCPCS: 80048

== ENCOUNTER 2020-09-28 11:54 | Outpatient (CLI) | payer MEDICARE, MEDICAID, SELFPAY | END 2020-09-28 12:14 | PROVIDERS: PCP Family Medicine; Referring Provider Family Medicine; Visit Provider Internal Medicine Cardiovascular Disease | DX: R55 Syncope and collapse (principal); I47.1 Supraventricular tachycardia; I49.3 Ventricular premature depolarization | CPT/HCPCS: 93272 ==

== ENCOUNTER 2020-10-01 17:00 | Outpatient (REF) | payer MEDICARE, MEDICAID, SELFPAY ==
[2020-10-04 20:07] LABS: SARS-CoV-2 RNA Undetected (Undetected); SARS-CoV-2 Specimen Source Nasal
== END 2020-10-01 17:20 ==
LOC: NCHCN 17:00
PROVIDERS: PCP Family Medicine; Visit Provider Nurse Practitioner Family
DX: Z20.828 Contact with and (suspected) exposure to other viral communicable diseases (principal)
CPT/HCPCS: U0003

== ENCOUNTER 2021-02-04 10:02 | Outpatient (REF) | payer MEDICARE, MEDICAID, SELFPAY ==
[2021-02-04 16:47] LABS: HCT 38.8 % (36.0-46.0); HGB 12.6 g/dL (11.2-15.7); MCH 28.6 pg (27.0-33.0); MCHC 32.5 % (32.0-36.0); MCV 88.2 fL (80-95); MPV 11.7 fL (8.0-11.0); Platelet Count 192 10^3/uL (130-400); RDW 13.9 % (11.7-14.6); RDW-SD 45.1 fL; WBC 7.77 10^3/uL (4.4-10.8)
[2021-02-04 17:23] LABS: Hemoglobin A1C 7.1 % (<5.7)
[2021-02-04 17:40] LABS: Folate 19.9 ng/mL (8.6-20.0); TSH (W/Ref FT4) 2.18 uIU/mL (0.36-3.74); Vitamin B12 832 pg/mL (193-986)
== END 2021-02-04 10:03 | disposition home or self-care (01) ==
LOC: NCHCN 10:02
PROVIDERS: PCP Family Medicine; Visit Provider Family Medicine
DX: E11.9 Type 2 diabetes mellitus without complications (principal); E03.9 Hypothyroidism, unspecified; R53.83 Other fatigue; Z79.899 Other long term (current) drug therapy
CPT/HCPCS: 82306; 85027; 82607; 82746; 83036; 84443

== ENCOUNTER 2021-02-11 15:51 | Outpatient (REF) | payer MEDICARE, MEDICAID, SELFPAY ==
[2021-02-14 16:46] LABS: 2-OH-Ethyl-Flurazepam Negative ng/mL (Cutoff: 10); 7-NH-Clonazepam 22 ng/mL (Cutoff: 10); 7-NH-Flunitrazepam Negative ng/mL (Cutoff: 10); Alpha OH-Alprazolam Negative ng/mL (Cutoff: 10); Alpha-OH Midazolam Negative ng/mL (Cutoff: 10); Alpha-OH-Triazolam Negative ng/mL (Cutoff: 10); Alprazolam Negative ng/mL (Cutoff: 10); Benzodiazepines Interpretation Positive.; Chlordiazepoxide Negative ng/mL (Cutoff: 10); Clobazam Negative ng/mL (Cutoff: 10); Clonazepam Negative ng/mL (Cutoff: 10); Diazepam Negative ng/mL (Cutoff: 10); Flurazepam Negative ng/mL (Cutoff: 10); Lorazepam Negative ng/mL (Cutoff: 10); Midazolam Negative ng/mL (Cutoff: 10); N-Desmethylclobazam Negative ng/mL (Cutoff: 10); Prazepam Negative ng/mL (Cutoff: 10); Temazepam Negative ng/mL (Cutoff: 10); Triazolam Negative ng/mL (Cutoff: 10); Zolpidem Carboxylic acid Negative ng/mL (Cutoff: 10)
== END 2021-02-11 15:52 | disposition home or self-care (01) ==
LOC: NCHCN 15:51
PROVIDERS: PCP Family Medicine; Visit Provider Family Medicine
DX: G89.4 Chronic pain syndrome (principal); Z79.899 Other long term (current) drug therapy
CPT/HCPCS: 80346

== ENCOUNTER → 2021-04-02 09:21 | Outpatient (BNVA) | payer MEDICARE, MEDICAID, SELFPAY | PROVIDERS: PCP Family Medicine; Referring Provider Family Medicine; Visit Provider Internal Medicine Cardiovascular Disease | DX: I42.9 Cardiomyopathy, unspecified (principal); I25.10 Atherosclerotic heart disease of native coronary artery without angina pectoris; R00.2 Palpitations | CPT/HCPCS: 99213 ==

== ENCOUNTER 2021-05-06 13:49 | Outpatient (REF) | payer MEDICARE, MEDICAID, SELFPAY ==
[2021-05-06 19:40] LABS: COMMENT (LAB VIEW ONLY) 13.37 mg/dL
== END 2021-05-06 13:50 | disposition home or self-care (01) ==
LOC: NCHCN 13:49
PROVIDERS: PCP Family Medicine; Visit Provider Family Medicine
DX: E11.9 Type 2 diabetes mellitus without complications (principal)
CPT/HCPCS: 82043; 82570

== ENCOUNTER 2021-06-10 15:56 | Emergency (ER) | payer MEDICARE, MEDICAID, SELFPAY ==
--- NOTE | 2021-06-10 15:45 | RT.EKG_ITS ---
APPROVED REPORT Exam: Resting ECG Reason for Exam: SOB Patient Location: E HR:84 bpm ECG Measurements Heart Rate 84 AXIS NM 164 P 39 QRSd 80 QRS 3 QT 417 T 27 QTc 493 Conclusion Sinus rhythm...normal P axis, V-rate 60- 99 Low voltage, precordial leads...precordial leads <1.0mV
[2021-06-10 15:59] VITALS: BP 149/81; PULSE 84; RESP 20; TEMP 36.4; O2SAT 97
--- NOTE | 2021-06-10 16:00 | DI.RAD_ITS ---
Exam(s) XR CHEST 2V PA LATERAL EXAM: XR CHEST 2V PA LATERAL CLINICAL HISTORY: SOB TECHNIQUE: 2D digital imaging was performed. COMPARISON: CR XR CHEST, 2 VIEWS from 08/27/2020 FINDINGS: Exam is limited by poor pulmonary inflation. There is respiratory motion on the lateral view. The h eart size is within normal limits. There are increased interstitial markings when compared with the previous exam which could indicate mild pulmonary edema.. No focal area of consolidation or effusion is seen. IMPRESSION: Limited exam, question of mild pulmonary edema.. DATA REPOSITORY: RADIATION DOSE DELIVERED:
--- NOTE | 2021-06-10 16:13 | ED.GENADUL_ITS ---
Discharge Plan Disposition Patient Disposition: HOME Condition: Improving Discharge Details Clinical Impression: Elevated brain natriuretic peptide (BNP) level, Shortness of breath, Chest pain Primary Care Provider: Edie Ellis ED Provider: Sherrie Apodaca Home Meds and New Rx's Prescriptions: Continued metoprolol succinate 50 mg tablet extended release 24 hr 50 mg PO DAILY Qty: 30 RF: 11 Trulicity 1.5 mg/0.5 mL pen injector 0.75 mg subcut QWEEK RF: 0 ergocalciferol (vitamin D2) 50 mcg (2,000 unit) capsule 50 mcg PO DAILY RF: 0 vitamin [id number]-[id number] acid 1 EACH tablet 1 ea PO DAILY RF: 0 clonazepam 1 mg tablet 1.5 mg PO HS RF: 0 rosuvastatin [Crestor] 5 MG tablet 10 mg PO QPM RF: 0 naratriptan 2.5 mg tablet 2.5 mg PO BID PRNRF: 0 metformin 500 MG tablet extended release 24 hr 500 mg PO BID RF: 0 riboflavin (vitamin B2) [Vitamin B-2] 50 MG tablet 200 mg PO BID RF: 0 pregabalin [Lyrica] 75 MG capsule 100 mg PO TID RF: 0 polyethylene glycol 3350 17 gram/dose Powder 17 g PO DAILY PRNRF: 0 paroxetine HCl 20 mg tablet 40 mg PO DAILY RF: 0 levothyroxine [Synthroid] 25 MCG tablet 50 mcg PO HS RF: 0 magnesium oxide 400 MG tablet 800 mg PO BID RF: 0 furosemide 20 mg Tablet 20 mg PO DAILY RF: 0 omeprazole 20 mg Capsule,Delayed Release(Dr/Ec) 20 mg PO DAILY RF: 0 prochlorperazine maleate 10 mg Tablet 10 mg PO DAILY PRN (Reason: Headache) RF: 0 albuterol sulfate [Ventolin HFA] 90 mcg/actuation Hfa Aerosol Inhaler 2 puff INHALATION QID PRNRF: 0 Narcan 4 mg/actuation Ronda,Non-Aerosol 1 spray INTRANASAL ONCE PRNRF: 0 valacyclovir 1 gram tablet 500 mg PO QHS RF: 0 ketorolac 10 mg Tablet 10 mg PO TID PRNRF: 0 lamotrigine 100 mg Tablet Extended Release 24hr 100 mg PO HS RF: 0 aspirin 81 mg tablet,delayed release (DR/EC) 81 mg PO DAILY Qty: 14 RF: 0 hydromorphone [Dilaudid] 2 MG tablet 4 mg PO BID RF: 0 melatonin 10 mg Tablet 10 mg PO HS PRNRF: 0 ondansetron HCl 4 mg tablet 4 mg PO Q8H PRNRF: 0 estradiol 1 mg tablet RF: 0 Discharge Instructions Instructions: Chest Pain (ED), Dyspnea (ED) Additional Instructions: Labs are suggestive of you have any excess fluid causing her increased shortness of breath. This does correlate with you having increased shortness of breath when laying flat as well. Please double your dose of Lasix for the next 3 days. Please follow-up with your primary care provider in 3 days for reevaluation. Please keep your upcoming cardiology appointment at [facility]. If you develop increased shortness of breath, increased chest pain or other new/ worsening symptoms please seek care urgently once again. Referrals: Edie Ellis MD [Primary Care Provider] - Discharge Data Discharge Date/Time-TO BE ENTERED AT DEPARTURE: 06/10/21 20:41 Medical Decision Making Patient is a pleasant 45-year-old female, accompanied by significant other, with chief complaint of shortness of breath and chest discomfort x2 days. States that her shortness of breath is slightly improved from yesterday. She states that last evening she was having difficulty sleeping secondary to this. Found that being in a more upright position it was beneficial. States that exertion can worsen his symptoms. States that his chest discomfort radiates from the left side of her chest towards the left shoulder and down the upper aspect of the left arm. No pain with pressure or movement of the left arm. Patient reports that she is been having increased shortness of breath with exertion over the past 7 to 8 months. This initially been attributed to allergies. States that she has been on antihistamine without improvement of her symptoms. Past medical history is pertinent for nonischemic cardiomyopathy with recovered ejection fraction, nonobstructive coronary artery disease, palpitations, anxiety, depression, bipolar, left rotator cuff tear. Patient is an active smoker. Is on estrogen document. She is status post hysterectomy. On exam, patient does appear short of breath. She does not have significant work of breathing but rather for slightly tachypneic. She is still speaking well. Her vital signs are stable lungs are clear. Normal cardiac auscultation. 2+ distal pulses in all extremities. No lower extremity edema. Abdominal exam is benign. No pain to palpation about the chest. EKG was obtained and reviewed by Dr. Shah. Patient is in normal sinus rhythm with a rate of 84. Low voltage in the precordial leads. No acute ischemic changes appreciated. Reviewed recent cardiology note dated 04/02/2021. Reconciliation Accountant notes that patient did have previous cardiac catheterization after her cardiomyopathy event at which time no obstructive disease was noted. There was question if this could be a familial etiology. Last echocardiogram was completed August 2020 showing an EF of 50 to 55% with no significant valvular issues. Referral for [facility] was sent for genetic testing as there was significant, questionable familial history that was slightly unclear. Patient was continued on metoprolol. Patient was seen to be benign after having had multiple cardiac monitors and possibly associated with PVCs. Differential diagnosis at this time is concerning for ACS. Also considered PE, patient was sedentary for the past week when she injured her back. Back pain in the lumbar with no pain in the thoracic region. She does not have pain radiating into the back, her symptoms are not consistent with dissection. Also considered infectious etiology although she is not reporting cough at this time. Also considered GI source versus other. Patient underwent cardiac MRI on May 10, 2021. Patient had normal end- diastolic volume of the left ventricle, normal right ventricle, normal atrium. No abnormal myocardial signal appreciated. Patient does have global left ventricular hypokinesis. No significant valvulopathy noted. No pericardial thickening or effusion. Normal contour and caliber of the aorta. Patient on daily 81 mg aspirin. We will augment this for full dosing. Also give the patient sublingual nitroglycerin. Patient had no change in her discomfort with the sublingual nitroglycerin. Will try IV morphine. Labs reviewed. No leukocytosis. Stable H&H. Coags are normal. D-dimer within normal limits. CMP without significant abnormality. Troponin within normal limits. Will obtain repeat troponin. BNP is elevated at 1330 which is significantly higher than she has been historically. Discussed the findings with the patient. This does correlate with her progressively worsening exertional shortness of breath over the past few months. Will diurese the patient and reassess. FINDINGS: Lungs: Unremarkable. No consolidation. Pleural spaces: Unremarkable. No pleural effusion. No pneumothorax. Heart/Mediastinum: Unremarkable. No cardiomegaly. Bones/joints: Unremarkable. IMPRESSION: No acute findings. Patient was given 20 mg IV Lasix. Reports that her shortness of breath is improving. She certainly looks clinically improved as well. Patient I discussed disposition. She is feeling improved and would prefer outpatient management. I do feel that this is reasonable. We will increase her dosing of Lasix, I have asked her to take 40 mg daily for the next 3 days. I have asked that she follow-up with primary care toward the end of the week for reassessment. She does have an appointment in 1 week with [facility] cardiology for continued monitoring and diagnostic evaluation of her cardiomyopathy. Strict return precautions were discussed. She is able to return promptly with any new/worsneing symptoms. All of her questions and concerns were addressed, he is in agreement with this plan. HPI General Mode of arrival: ambulatory . Date/Time Provider Initiated Documentation: 06/10/21 15:56 . Limitations to Documentation: no limitations . Information obtained by: patient and EMS . History of Present Illness 45 year old F presents to the emergency department with the chief complaint of SOB, chest discomfort, described as severe, with intensity rated at 10. Quality is described as aching, and is localized to the chest. Patient extremity. and it has been constant. Immobilization improves symptom(s), Movement worsens symptoms . Patient notes no other symptoms.. Patient did receive the following treatments prior to arrival, none Related Data Home Medications Medication Instructions Recorded Confirmed rosuvastatin [Crestor] 10 mg PO QPM 06/28/13 06/10/21 metformin 500 mg PO BID 03/12/15 06/10/21 riboflavin (vitamin B2) [Vitamin 200 mg PO BID 03/13/15 06/10/21 B-2] levothyroxine [Synthroid] 50 mcg PO HS 03/05/17 06/10/21 magnesium oxide 800 mg PO BID 03/05/17 06/10/21 pregabalin [Lyrica] 100 mg PO TID 03/06/17 06/10/21 vitamin [id number]-[id number] acid 1 ea PO DAILY 03/11/17 06/10/21 Narcan 1 spray INTRANASAL ONCE PRN 03/10/19 06/10/21 albuterol sulfate [Ventolin HFA] 2 puff INHALATION QID PRN 03/10/19 06/10/21 furosemide 20 mg PO DAILY 03/10/19 06/10/21 omeprazole 20 mg PO DAILY 03/10/19 06/10/21 prochlorperazine maleate 10 mg PO DAILY PRN 03/10/19 09/15/20 metoprolol succinate 50 mg 50 mg PO DAILY #30 tab 03/21/19 06/10/21 tablet,extended release 24 hr valacyclovir 1 gram tablet 500 mg PO QHS 03/21/19 06/10/21 ketorolac 10 mg PO TID PRN 09/28/19 06/10/21 lamotrigine 100 mg PO HS 09/28/19 06/10/21 aspirin 81 mg PO DAILY #14 tab 09/30/19 06/10/21 polyethylene glycol 3350 17 g PO DAILY PRN 12/22/19 06/10/21 clonazepam 1 mg tablet 1.5 mg PO HS tab 12/28/19 06/10/21 naratriptan 2.5 mg tablet 2.5 mg PO BID PRN 03/27/20 06/10/21 paroxetine HCl 20 mg tablet 40 mg PO DAILY tab 03/27/20 06/10/21 hydromorphone [Dilaudid] 4 mg PO BID 08/27/20 06/10/21 melatonin 10 mg PO HS PRN 08/27/20 06/10/21 ondansetron HCl 4 mg PO Q8H PRN 09/03/20 06/10/21 dulaglutide 1.5 mg/0.5 mL 0.75 mg SUBCUT QWEEK ml 04/02/21 06/10/21 subcutaneous pen injector ergocalciferol (vitamin D2) 50 mcg 50 mcg PO DAILY 04/02/21 06/10/21 (2,000 unit) capsule estradiol mg 06/10/21 06/10/21 Previous Rx's Medication Instructions Recorded metoprolol succinate 50 mg 50 mg PO DAILY #30 tab 03/21/19 tablet,extended release 24 hr aspirin 81 mg PO DAILY #14 tab 09/30/19 Allergies Allergy/AdvReac Type Severity Reaction Status Date / Time Penicillins Allergy Severe throat Verified 06/10/21 16:05 closes Sulfa (Sulfonamide Allergy Mild Hives Verified 06/10/21 16:05 Antibiotics) General Stated Complaint: Chest Pain RENATO: 2 Review of Systems Constitutional Constitutional: Reports as per HPI, Denies chills, Denies fever(s), Denies headache(s), Denies lethargy and Denies poor appetite Eyes Eyes: Denies change in vision ENT Ears, Nose, Mouth, and Throat: Denies dizziness and Denies headache(s) Cardiovascular Cardiovascular: Reports as per HPI, Reports chest pain, Reports dyspnea and Reports dyspnea on exertion Respiratory Respiratory: Reports as per HPI, Denies chest congestion, Denies cough, Denies pain on inspiration, Denies pain with cough, Reports dyspnea, Reports dyspnea on exertion and Denies wheezing Gastrointestinal Gastrointestinal: Reports as per HPI, Denies abdominal pain, Denies diarrhea, Denies nausea and Denies vomiting Musculoskeletal Musculoskeletal: Reports as per HPI and Denies back pain Integumentary/Breasts Skin/Breast: Reports as per HPI and Denies rash Neurologic Neurologic: Reports as per HPI, Denies dizziness and Denies headache(s) Allergic/Immunologic Allergic/Immunologic: Denies wheezing [facility] Medical History Anxiety CAD (coronary artery disease) mild non-obstructive disease per cardiac cath report from [facility] [place] [facility] 09/07/2013 Cardiomyopathy last echocardiogram 01/27/2019, LVEF 50-55%, no regional wall motion abnormalities, mild LVH, mild MR; normal RV size and function Carpal tunnel syndrome Chronic pain syndrome Depression Diabetes DUB (dysfunctional uterine bleeding) Frequent headaches Hyperlipidemia Hyperthyroidism Lactose intolerance Morbid obesity Polycystic ovaries Splenomegaly Tachycardia Surgical History History of arthroscopy of left shoulder History of section x2 History of endometrial ablation Hx of cardiac catheterization Previous back surgery S/P hysterectomy Social History Smoking/Tobacco Use Status: Current-Occasional Tobacco Type: cigarettes Smoking risk assessment performed?: Yes Alcohol Intake: never Drug use: Never Substance use type: does not use Current gender identity: female What type of physical activity do you participate in: additional Details: Reports that she cycles when sitting. Do you feel safe at home: Yes Do you feel safe in your relationship?: Yes Exam Const General: cooperative, comfortable, no acute distress, well developed and anxious Nutritional Appearance: well nourished and overweight Orientation: alert, awake and oriented x3 HENMT Head: normal to inspection Ears: hearing grossly normal bilaterally Mouth: moist mucous membranes Chest Chest: normal inspection of the chest, normal palpation of entire chest wall and no crepitus Resp Effort & Inspection: able to speak in complete sentences, no respiratory distress and tachypneic Auscultation: clear to auscultation bilaterally, crackles bilaterally at the base, no rales, no rhonchi and no wheezes Cardio Rate: regular rate Rhythm: regular rhythm Heart Sounds: S1 normal and S2 normal GI Inspection: normal to inspection, no edema and non-distended Palpation: soft, no hepatosplenomegaly, not firm, no guarding, not rigid and nontender Auscultation: normal bowel sounds Skin General skin exam: no rashes or lesions noted Trauma: no lacerations or abrasions Neuro General: patient alert, patient awake and patient oriented x3 Cognition: normal cognition Speech: speech normal Gait: normal gait Extrem General: normal to inspection, capillary refill normal, no pedal edema, no calf tenderness and normal gait Psych Appearance: grossly normal and well kempt Mental Status: mental status grossly normal Speech and Movement: speech and movement normal Course Vital Signs Vital signs: Vital Signs Temperature 36.4 C L 06/10/21 15:59 Pulse 84 06/10/21 15:59 Respiratory Rate 20 06/10/21 15:59 Blood Pressure 149/81 H 06/10/21 15:59 Pulse Oximetry 97 06/10/21 15:59 Temperature 36.4 C L 06/10/21 15:59 Temperature Source Skin 06/10/21 15:59 Pulse 84 06/10/21 15:59 Respiratory Rate 20 06/10/21 15:59 Respiratory Effort Labored 06/10/21 15:59 Blood Pressure 149/81 H 06/10/21 15:59 Blood Pressure Position Supine 06/10/21 15:59 Pulse Oximetry 97 06/10/21 15:59 Oxygen Delivery Method Room Air 06/10/21 15:59 Oxygen Flow Rate 0 06/10/21 15:59 Pain Level 10 06/10/21 15:59
[2021-06-10] MEDS: nitroGLYcerin 0.4 MG TAB (16:26)
[2021-06-10] MEDS: Aspirin 81 MG CHEW ×2 (16:27)
[2021-06-10] MEDS: Normal Saline Flush 10 ML SYR IVP (16:41)
[2021-06-10 16:46] LABS: Abs Immature Grans 0.02 10^3/uL (0.0-0.06); Absolute Basophil Count 0.05 10^3/uL (0.0-0.2); Absolute Eosinophil Count 0.48 10^3/uL (0.0-0.7); Absolute Monocyte Count 0.33 10^3/uL (0.1-0.8); Absolute Neutrophil Count 4.03 10^3/uL (1.2-6.7); Basophils % 0.7; Eosinophils % 6.4; HCT 38.4 % (36.0-46.0); HGB 12.6 g/dL (11.2-15.7); Immature Grans % 0.3; Lymphocytes % 34.6; MCH 29.4 pg (27.0-33.0); MCHC 32.8 % (32.0-36.0); MCV 89.5 fL (80-95); MPV 11.6 fL (8.0-11.0); Monocytes % 4.4; Neutrophils % 53.6; Nucleated RBC 0 %; Platelet Count 156 10^3/uL (130-400); RBC 4.29 10^6/uL (3.93-5.22); RDW 14.7 % (11.7-14.6); WBC 7.51 10^3/uL (4.4-10.8)
[2021-06-10 16:59] LABS: PTT Activated 21.8 sec (21.0-27.5); Prothrombin Time 10.2 sec (9.3-11.0)
[2021-06-10 17:04] LABS: ALT 23 U/L (14-59); AST 13 U/L (15-37); Albumin 3.2 g/dL (3.4-5.0); Alkaline Phosphatase 57 U/L (46-116); Anion Gap 10.1 mmol/L (3-11); BUN 13 mg/dL (7-18); Bilirubin, Total 0.4 mg/dL (0.2-1.0); CO2 24.9 mmol/L (21.0-32.0); CREATININE 0.7 mg/dL (0.55-1.02); Calcium 9.4 mg/dL (8.5-10.1); Chloride 105 mmol/L (98-107); Glucose 88 mg/dL (74-106); Magnesium 1.6 mg/dL (1.8-2.4); NT-proBNP 1330 pg/mL (<300); Potassium 4.1 mmol/L (3.5-5.1); Sodium 140 mmol/L (136-145)
--- NOTE | 2021-06-10 17:04 | DI.VRAD_ITS ---
PROCEDURE INFORMATION: Exam: XR Chest Exam date and time: 06/10/2021 4:53 PM Age: 45 years old Clinical indication: Shortness of breath; Patient HX: SOB TECHNIQUE: Imaging protocol: XR of the chest. Views: 2 views. COMPARISON: CR XR CHEST, 2 VIEWS 08/27/2020 1:54 PM FINDINGS: Lungs: Unremarkable. No consolidation. Pleural spaces: Unremarkable. No pleural effusion. No pneumothorax. Heart/Mediastinum: Unremarkable. No cardiomegaly. Bones/joints: Unremarkable. IMPRESSION: No acute findings. Dictated and Authenticated by: Gómez Witt MD. Ordering:FABIANA Balderas MD
[2021-06-10 17:08] LABS: Troponin I < 0.05 ng/mL (<0.06)
[2021-06-10 17:09] VITALS: BP 129/83; PULSE 88; RESP 20; TEMP 36.6; O2SAT 96
[2021-06-10 17:19] LABS: D-Dimer 401 ng/mlFEU (<500)
[2021-06-10] MEDS: Furosemide 20 MG/2 ML VIAL IVP (18:03)
[2021-06-10 18:47] VITALS: BP 149/83; PULSE 97; RESP 24; O2SAT 94
--- NOTE | 2021-06-10 18:48 | NUR.NOTE ---
ambulated to BR and back to bed x 2
[2021-06-10 19:39] LABS: Troponin I < 0.05 ng/mL (<0.06)
[2021-06-10 20:38] VITALS: BP 144/90; PULSE 89; RESP 22; O2SAT 93
== END 2021-06-10 20:41 | disposition home or self-care (01) ==
PROVIDERS: Emergency Provider Physician Assistant; PCP Family Medicine
DX: R06.02 Shortness of breath (principal); R07.9 Chest pain, unspecified; R79.89 Other specified abnormal findings of blood chemistry
CPT/HCPCS: 36410; 80053; 93005; 96374; 96375; 99284; 71046; 83735; 83880; 84484; 85025; 85379; 85610; 85730; 93010; J1941

== ENCOUNTER 2021-07-26 14:34 | Outpatient (REF) | payer MEDICARE, MEDICAID, SELFPAY ==
[2021-07-25 19:57] LABS: COMMENT (LAB VIEW ONLY) 56.58 mg/dL; Microalb ug/mg Crea 9.2 ug/mg Cr
== END 2021-07-26 14:35 | disposition home or self-care (01) ==
LOC: NCHCN 14:34
PROVIDERS: PCP Family Medicine; Visit Provider Family Medicine
DX: E11.9 Type 2 diabetes mellitus without complications (principal)
CPT/HCPCS: 82043; 82570

== ENCOUNTER 2021-08-07 17:02 | Emergency (ER) | payer MEDICARE, MEDICAID, SELFPAY ==
[2021-08-07] VITALS (24 sets, daily range): BP systolic 88–153; BP diastolic 54–114; PULSE 74–86; RESP 9–33; TEMP 36.4; O2SAT 85–96
--- NOTE | 2021-08-07 17:00 | RT.EKG_ITS ---
APPROVED REPORT Exam: Resting ECG Reason for Exam: chest pain Patient Location: E HR:80 bpm ECG Measurements Heart Rate 80 AXIS [place] 171 P 18 QRSd 81 QRS -10 QT 430 T 5 QTc 496 Conclusion Sinus rhythm...normal P axis, V-rate 60- 99 Low voltage, precordial leads...precordial leads <1.0mV. Sinus. No STEMI. I have reviewed and interpreted ECG and agree with software generated interpretation.
--- NOTE | 2021-08-07 17:21 | ED.GENADUL_ITS ---
Discharge Plan Disposition Patient Disposition: HOME Condition: Stable Discharge Details Clinical Impression: Fatigue, Chest pain Primary Care Provider: Edie Ellis ED Provider: Sherrie Apodaca Home Meds and New Rx's Prescriptions: Continued metoprolol succinate 50 mg tablet extended release 24 hr 50 mg PO DAILY Qty: 30 RF: 11 Trulicity 1.5 mg/0.5 mL pen injector 0.75 mg subcut QWEEK RF: 0 ergocalciferol (vitamin D2) 50 mcg (2,000 unit) capsule 50 mcg PO DAILY RF: 0 vitamin N99-pugto acid 1 EACH tablet 1 ea PO DAILY RF: 0 clonazepam 1 mg tablet 1.5 mg PO HS RF: 0 rosuvastatin [Crestor] 5 MG tablet 10 mg PO QPM RF: 0 naratriptan 2.5 mg tablet 2.5 mg PO BID PRNRF: 0 metformin 500 MG tablet extended release 24 hr 500 mg PO BID RF: 0 riboflavin (vitamin B2) [Vitamin B-2] 50 MG tablet 200 mg PO BID RF: 0 pregabalin [Lyrica] 75 MG capsule 100 mg PO TID RF: 0 polyethylene glycol 3350 17 gram/dose Powder 17 g PO DAILY PRNRF: 0 paroxetine HCl 20 mg tablet 40 mg PO DAILY RF: 0 levothyroxine [Synthroid] 25 MCG tablet 50 mcg PO HS RF: 0 magnesium oxide 400 MG tablet 800 mg PO BID RF: 0 furosemide 20 mg Tablet 20 mg PO DAILY RF: 0 omeprazole 20 mg Capsule,Delayed Release(Dr/Ec) 20 mg PO DAILY RF: 0 prochlorperazine maleate 10 mg Tablet 10 mg PO DAILY PRN (Reason: Headache) RF: 0 albuterol sulfate [Ventolin HFA] 90 mcg/actuation Hfa Aerosol Inhaler 2 puff INHALATION QID PRNRF: 0 Narcan 4 mg/actuation Carmen,Non-Aerosol 1 spray INTRANASAL ONCE PRNRF: 0 valacyclovir 1 gram tablet 500 mg PO QHS RF: 0 ketorolac 10 mg Tablet 10 mg PO TID PRNRF: 0 lamotrigine 100 mg Tablet Extended Release 24hr 100 mg PO HS RF: 0 aspirin 81 mg tablet,delayed release (DR/EC) 81 mg PO DAILY Qty: 14 RF: 0 hydromorphone [Dilaudid] 2 MG tablet 4 mg PO BID RF: 0 ondansetron HCl 4 mg tablet 4 mg PO Q8H PRNRF: 0 estradiol 1 mg tablet RF: 0 Discharge Instructions Instructions: Chest Pain (ED), Fatigue (ED) Additional Instructions: Your labs and imaging are reassuring here today. As we discussed, you will have a tick and Lyme panel pending as well Covid pending. Please quarantine until these results have returned. Please continue with your typical medications. Please follow-up with your primary care in the next 1 to 2 weeks for reevaluation. If you develop any new or worsening symptoms please seek care urgently once again. Referrals: Edie Ellis MD [Primary Care Provider] - Discharge Data Discharge Date/Time-TO BE ENTERED AT DEPARTURE: 08/07/21 20:40 Medical Decision Making Patient is a 46-year-old female presenting today with chief complaint of chest tightness. She reports that it feels like all my ribs are breaking. Has not had pain like the historically although it is slightly similar to when she had CHF exacerbations historically. States that she feel that she is not breath. States that she is been fatigued. All the symptoms began yesterday. Denies any exacerbating factors. States has been more fatigued than normal. No GI upset. Denies any fevers or chills. Reports a dry cough. Patient is vaccinated, no recent sick contacts. On exam, patient appears fatigued but otherwise nontoxic. Vital signs are stable. Upon evaluation, O3 94% on RA without respiratory distress. Lungs are clear, normal cardiac exam. Abdomen is benign. No lower extremity edema. Patient does report that she had lower extremity swelling yesterday but htat it was resolved this AM. She has no calf pain. Past medical history is pertinent for cardiomyopathy, CAD, anxiety, depression, bipolar, type 2 diabetes. Based on history, considered CHF exacerbation, ACS, infectious etiology. Her hx and VS are not consistent with PE. Will obtain ECG, labs, CXR. ECG reviewed by Dr. Collado. No acute ischemic changes noted. Patient requesting to leave. She reports that she is feeling better in regard to her CP but that she is fatigued. Would like to go home and go to bed. Had chat about this with patient and shei s agreeable to stay for return of labs. Labs reviewed. No leukocytosis. Stable H&H. Coags are normal. No abnormality on CMP. Troponin within normal limits. BNP within normal limits. Urinalysis without abnormality. The patient has been unusually fatigued, I did obtain a UDS, this was all negative. X-ray reviewed by radiology: FINDINGS: Lungs: Question mild peribronchial thickening and perihilar stranding suggesting possible bronchitis. Normal pulmonary expansion. Pulmonary vasculature grossly normal. No gross pulmonary infiltrates. Pleural spaces: No pleural effusion. No pneumothorax. Heart/Mediastinum: Heart size normal. No tracheal/mediastinal shift. Bones/joints: No acute osseous abnormalities are identified. IMPRESSION: Question mild peribronchial thickening and perihilar stranding suggesting possible bronchitis. No gross pulmonary infiltrates. Discussed with patient. As her symptoms have been going on since yesterday, I do not believe repeat troponin is warranted at this time. Will add Lyme and COVID. Patient has dog that often brings in ticks. This may account for her fatigue. Return precautions were discussed. Advised close f/u with PCP. She will return with any new/worsneing symptoms. All of her quesitons and concerns were addressed, she is in agreemtn with this plan. HPI General Mode of arrival: EMS . Date/Time Provider Initiated Documentation: 08/07/21 17:21 . Limitations to Documentation: no limitations . Information obtained by: patient, EMS, RN notes reviewed and old records reviewed . History of Present Illness 46 year old F presents to the emergency department with the chief complaint of chest discomfort, fatigue, described as moderate, with intensity rated at 6. Quality is described as aching, and is localized to the chest (reports it feels like rib pain). Patient reports no radiation. Patient started experiencing this day(s) and it has been constant. No relieving factors improve symptom(s), No exacerbating factors reported . Patient notes chest pain; denies cough, diaphoresis, fever/chills, headaches, nausea/vomiting, rash and shortness of breath. Patient did receive the following treatments prior to arrival, none Related Data Home Medications Medication Instructions Recorded Confirmed rosuvastatin [Crestor] 10 mg PO QPM 06/28/13 08/07/21 metformin 500 mg PO BID 03/12/15 08/07/21 riboflavin (vitamin B2) [Vitamin 200 mg PO BID 03/13/15 08/07/21 B-2] levothyroxine [Synthroid] 50 mcg PO HS 03/05/17 08/07/21 magnesium oxide 800 mg PO BID 03/05/17 08/07/21 pregabalin [Lyrica] 100 mg PO TID 03/06/17 08/07/21 vitamin H38-glhut acid 1 ea PO DAILY 03/11/17 08/07/21 Narcan 1 spray INTRANASAL ONCE PRN 03/10/19 08/07/21 albuterol sulfate [Ventolin HFA] 2 puff INHALATION QID PRN 03/10/19 08/07/21 furosemide 20 mg PO DAILY 03/10/19 08/07/21 omeprazole 20 mg PO DAILY 03/10/19 08/07/21 prochlorperazine maleate 10 mg PO DAILY PRN 03/10/19 08/07/21 metoprolol succinate 50 mg 50 mg PO DAILY #30 tab 03/21/19 08/07/21 tablet,extended release 24 hr valacyclovir 1 gram tablet 500 mg PO QHS 03/21/19 08/07/21 ketorolac 10 mg PO TID PRN 09/28/19 08/07/21 lamotrigine 100 mg PO HS 09/28/19 08/07/21 aspirin 81 mg PO DAILY #14 tab 09/30/19 08/07/21 polyethylene glycol 3350 17 g PO DAILY PRN 12/22/19 08/07/21 clonazepam 1 mg tablet 1.5 mg PO HS tab 12/28/19 08/07/21 naratriptan 2.5 mg tablet 2.5 mg PO BID PRN 03/27/20 08/07/21 paroxetine HCl 20 mg tablet 40 mg PO DAILY tab 03/27/20 08/07/21 hydromorphone [Dilaudid] 4 mg PO BID 08/27/20 08/07/21 ondansetron HCl 4 mg PO Q8H PRN 09/03/20 08/07/21 dulaglutide 1.5 mg/0.5 mL 0.75 mg SUBCUT QWEEK ml 04/02/21 08/07/21 subcutaneous pen injector ergocalciferol (vitamin D2) 50 mcg 50 mcg PO DAILY 04/02/21 08/07/21 (2,000 unit) capsule estradiol mg 06/10/21 06/10/21 Previous Rx's Medication Instructions Recorded metoprolol succinate 50 mg 50 mg PO DAILY #30 tab 03/21/19 tablet,extended release 24 hr aspirin 81 mg PO DAILY #14 tab 09/30/19 Allergies Allergy/AdvReac Type Severity Reaction Status Date / Time Penicillins Allergy Severe throat Verified 08/07/21 17:11 closes Sulfa (Sulfonamide Allergy Mild Hives Verified 08/07/21 17:11 Antibiotics) General Stated Complaint: Chest Pain RENATO: 2 Review of Systems Constitutional Constitutional: Reports as per HPI, Denies chills, Reports fatigue, Denies fever(s), Denies headache(s) and Reports lethargy ENT Ears, Nose, Mouth, and Throat: Denies headache(s) Cardiovascular Cardiovascular: Reports as per HPI, Reports chest pain, Reports chest pain at rest, Denies rapid heart rate, Denies edema, Denies dyspnea and Denies dyspnea on exertion Respiratory Respiratory: Reports as per HPI, Denies chest congestion, Reports cough, Denies pain on inspiration, Denies pain with cough, Denies dyspnea, Denies dyspnea on exertion and Denies wheezing Gastrointestinal Gastrointestinal: Reports as per HPI, Denies abdominal pain, Denies diarrhea, Denies nausea and Denies vomiting Musculoskeletal Musculoskeletal: Reports as per HPI and Denies back pain Integumentary/Breasts Skin/Breast: Reports as per HPI and Denies rash Neurologic Neurologic: Reports as per HPI and Denies headache(s) Endocrine Endocrine: Reports fatigue Allergic/Immunologic Allergic/Immunologic: Denies wheezing [facility] Medical History Anxiety CAD (coronary artery disease) mild non-obstructive disease per cardiac cath [place] [facility] [place] [facility] [place] Cardiomyopathy last echocardiogram 01/27/2019, LVEF 50-55%, no regional wall motion abnormalities, mild LVH, mild MR; normal RV size and function Carpal tunnel syndrome Chronic pain syndrome Depression Diabetes DUB (dysfunctional uterine bleeding) Frequent headaches Hyperlipidemia Hyperthyroidism Lactose intolerance Morbid obesity Polycystic ovaries Splenomegaly Tachycardia Surgical History History of arthroscopy of left shoulder History of section x2 History of endometrial ablation Hx of cardiac catheterization Previous back surgery S/P hysterectomy Social History Smoking/Tobacco Use Status: Current every day Tobacco Type: cigarettes Smoking risk assessment performed?: Yes Alcohol Intake: never Drug use: Never Substance use type: does not use Current gender identity: female What type of physical activity do you participate in: additional Details: Reports that she cycles when sitting. Do you feel safe at home: Yes Do you feel safe in your relationship?: Yes Exam Const General: cooperative, healthy appearing, comfortable, no acute distress and well developed Nutritional Appearance: average body habitus and well nourished Orientation: alert, awake and oriented x3 Chest Chest: normal inspection of the chest, normal palpation of entire chest wall and no crepitus Resp Effort & Inspection: normal respiratory effort, able to speak in complete sentences and no respiratory distress Auscultation: clear to auscultation bilaterally, no rales, no rhonchi and no wheezes Cardio Rate: regular rate Rhythm: regular rhythm Heart Sounds: S1 normal and S2 normal GI Inspection: normal to inspection, no edema and non-distended Palpation: soft, no hepatosplenomegaly, not firm, no guarding, not rigid and nontender Auscultation: normal bowel sounds Skin General skin exam: no rashes or lesions noted Trauma: no lacerations or abrasions Neuro General: patient alert, patient awake and patient oriented x3 Cognition: normal cognition Speech: speech normal Gait: normal gait Extrem General: normal to inspection, capillary refill normal, no pedal edema, no calf tenderness and normal gait Psych Appearance: grossly normal and well kempt Mental Status: mental status grossly normal Speech and Movement: speech and movement normal Course Vital Signs Vital signs: Vital Signs Temperature 36.4 C L 08/07/21 17:08 Pulse 85 08/07/21 17:08 Respiratory Rate 18 08/07/21 17:08 Blood Pressure 153/114 H 08/07/21 17:08 Pulse Oximetry 91 L 08/07/21 17:08 Temperature 36.4 C L 08/07/21 17:08 Temperature Source Skin 08/07/21 17:08 Pulse 85 08/07/21 17:08 Respiratory Rate 18 08/07/21 17:08 Respiratory Effort Non-Labored 08/07/21 17:15 Blood Pressure 153/114 H 08/07/21 17:08 Blood Pressure Position Supine 08/07/21 17:08 Pulse Oximetry 91 L 08/07/21 17:08 Oxygen Delivery Method Room Air 08/07/21 17:08 Oxygen Flow Rate 0 08/07/21 17:08 Pain Level 6 08/07/21 17:08
--- NOTE | 2021-08-07 17:30 | DI.RAD_ITS ---
Exam(s) XR CHEST 2V PA LATERAL EXAM: XR CHEST 2V PA LATERAL CLINICAL HISTORY: SOB TECHNIQUE: 2D digital imaging was performed. COMPARISON: CR,XR XR CHEST 2V PA LATERAL from 06/10/2021 FINDINGS: MEDIASTINUM: Normal. HEART: Normal. PULMONARY VASCULATURE: Normal. LUNGS: Clear. PLEURAL SPACE: No pleural effusion or pneumothorax. BONE:Within normal limits for the patient's age. OTHER FINDINGS:Normal. IMPRESSION: No acute pulmonary findings. DATA REPOSITORY: RADIATION DOSE DELIVERED:
[2021-08-07 17:47] LABS: Abs Immature Grans 0.03 10^3/uL (0.0-0.06); Absolute Basophil Count 0.09 10^3/uL (0.0-0.2); Absolute Eosinophil Count 0.41 10^3/uL (0.0-0.7); Absolute Lymphocyte Count 3.83 10^3/uL (1.2-3.4); Absolute Monocyte Count 0.54 10^3/uL (0.1-0.8); Absolute Neutrophil Count 3.32 10^3/uL (1.2-6.7); Basophils % 1.1; HCT 47.5 % (36.0-46.0); HGB 15.2 g/dL (11.2-15.7); Immature Grans % 0.4; Lymphocytes % 46.6; MCH 29.3 pg (27.0-33.0); MCV 91.5 fL (80-95); MPV 11.5 fL (8.0-11.0); Monocytes % 6.6; Neutrophils % 40.3; Nucleated RBC 0 %; Platelet Count 232 10^3/uL (130-400); RBC 5.19 10^6/uL (3.93-5.22); RDW 14.7 % (11.7-14.6); RDW-SD 49.4 fL; WBC 8.22 10^3/uL (4.4-10.8)
[2021-08-07 18:11] LABS: ALT 31 U/L (14-59); AST 24 U/L (15-37); Albumin 3.8 g/dL (3.4-5.0); Alkaline Phosphatase 57 U/L (46-116); Anion Gap 9.5 mmol/L (3-11); BUN 11 mg/dL (7-18); Bilirubin, Total 0.3 mg/dL (0.2-1.0); CO2 29.5 mmol/L (21.0-32.0); CREATININE 0.8 mg/dL (0.55-1.02); Calcium 9.5 mg/dL (8.5-10.1); Chloride 101 mmol/L (98-107); Glucose 98 mg/dL (74-106); Potassium 3.7 mmol/L (3.5-5.1); Sodium 140 mmol/L (136-145); Total Protein 7.8 g/dL (6.4-8.2)
[2021-08-07 18:15] LABS: Magnesium 1.9 mg/dL (1.8-2.4)
[2021-08-07 18:28] LABS: NT-proBNP 139 pg/mL (<300)
[2021-08-07 18:34] LABS: Troponin I < 0.05 ng/mL (<0.06)
[2021-08-07 18:36] LABS: PTT Activated 22.1 sec (21.0-27.5); Prothrombin Time 10.1 sec (9.3-11.0)
[2021-08-07 18:45] LABS: Bilirubin Negative (Negative); Blood Negative (Negative); Clarity Clear (Clear); Glucose 500 mg/dL (Negative); Ketones Negative (Negative); Leukocyte Esterase Negative (Negative); Nitrite Negative (Negative); Urobilinogen 0.2 EU/dL (Up TO 0.2); pH 7.5 (5-8)
[2021-08-07 19:01] LABS: *AMPHETAMINES SCREEN URINE Negative (Negative); *BARBITURATES SCREEN URINE Negative (Negative); *BENZODIAZEPINES SCREEN URINE Negative (Negative); Cannabinoids THC Negative (Negative); Cocaine Screen,Urine Negative (Negative); METHADONE URINE SCREEN Negative (Negative); OPIATES URINE SCREEN Negative (Negative)
[2021-08-07 19:05] LABS: Tricyclic Antidepressants Negative (Negative)
[2021-08-07] MEDS: ACETAMINOPHEN 1,000 MG/100 ML BTL 400 MG IVPB (19:30)
[2021-08-07] MEDS: Normal Saline Flush 10 ML SYR IVP (19:46)
--- NOTE | 2021-08-07 19:49 | DI.VRAD_ITS ---
PROCEDURE INFORMATION: Exam: XR Chest Exam date and time: 08/07/2021 7:24 PM Age: 46 years old Clinical indication: Other: SOB TECHNIQUE: Imaging protocol: XR of the chest. Views: 2 views. Total images: 2 COMPARISON: CR XR CHEST 2V PA LATERAL 06/10/2021 4:52 PM FINDINGS: Lungs: Question mild peribronchial thickening and perihilar stranding suggesting possible bronchitis. Normal pulmonary expansion. Pulmonary vasculature grossly normal. No gross pulmonary infiltrates. Pleural spaces: No pleural effusion. No pneumothorax. Heart/Mediastinum: Heart size normal. No tracheal/mediastinal shift. Bones/joints: No acute osseous abnormalities are identified. IMPRESSION: Question mild peribronchial thickening and perihilar stranding suggesting possible bronchitis. No gross pulmonary infiltrates. Dictated and Authenticated by: Prudencio Pal MD. Ordering:FABIANA Balderas MD
[2021-08-09 10:41] LABS: Lyme Ab w Rflx to Lyme Confirm Negative (Negative)
[2021-08-09 12:11] LABS: COVID-19 RT-PCR UVMMC Result Negative (Negative)
--- NOTE | 2021-08-10 08:25 | NUR.NOTE ---
NuNegqative Covid result given to Jammie. Verbalizes understanding.rsing Note:
[2021-08-11 02:10] LABS: Anaplasma phagocytophilum Negative (Negative); B. miyamotoi PCR Negative (Negative); Babesia divergens/MO-1 Negative (Negative); Babesia duncani Negative (Negative); Babesia microti Negative (Negative); Ehrlichia chaffeensis Negative (Negative); Ehrlichia ewingii/canis Negative (Negative); Ehrlichia muris eauclairensis Negative (Negative)
== END 2021-08-07 20:40 | disposition home or self-care (01) ==
PROVIDERS: Emergency Provider Physician Assistant; PCP Family Medicine
DX: R07.89 Other chest pain (principal); R06.02 Shortness of breath; R53.83 Other fatigue; E11.9 Type 2 diabetes mellitus without complications; Z20.822 Contact with and (suspected) exposure to COVID-19
CPT/HCPCS: 36415; 36416; 80053; 80307; 82962; 87798; 93005; 96374; 99284; U0003; U0005; 71046; 81003; 83735; 83880; 84484; 85025; 85610; 85730; 86618; 93010; J0131

== ENCOUNTER → 2021-11-04 09:53 | Outpatient (BNVA) | payer MEDICARE, MEDICAID, SELFPAY | PROVIDERS: PCP Family Medicine; Referring Provider Family Medicine; Visit Provider Internal Medicine Cardiovascular Disease | DX: I42.9 Cardiomyopathy, unspecified (principal); E11.9 Type 2 diabetes mellitus without complications; F17.210 Nicotine dependence, cigarettes, uncomplicated | CPT/HCPCS: 99214 ==

== ENCOUNTER 2021-11-25 14:15 | Outpatient (REF) | payer MEDICARE, MEDICAID, SELFPAY ==
[2021-11-25 15:40] LABS: Hemoglobin A1C 6.6 % (<5.7)
[2021-11-25 15:50] LABS: TSH (W/Ref FT4) 0.88 uIU/mL (0.36-3.74)
== END 2021-11-25 14:16 | disposition home or self-care (01) ==
LOC: NCHCN 14:15
PROVIDERS: PCP Family Medicine; Visit Provider Family Medicine
DX: E11.9 Type 2 diabetes mellitus without complications (principal)
CPT/HCPCS: 83036; 84443

== ENCOUNTER 2021-11-27 11:55 | Outpatient (REF) | payer MEDICARE, MEDICAID, SELFPAY ==
[2021-11-27 15:20] LABS: C-Reactive Protein 1.32 mg/dL (0.0-0.3)
[2021-11-27 15:23] LABS: ESR 29 mm/hr (0-20)
[2021-11-28 09:09] LABS: Cyclic Citrullinated Peptide <2.5 U/mL (<5.0)
== END 2021-11-27 11:56 | disposition home or self-care (01) ==
LOC: NCHCN 11:55
PROVIDERS: PCP Family Medicine; Visit Provider Family Medicine
DX: M25.59 Pain in other specified joint (principal)
CPT/HCPCS: 85652; 86200; 86140

== ENCOUNTER 2021-12-12 01:03 | Outpatient (CLI) | payer MEDICARE, MEDICAID, SELFPAY ==
--- NOTE | 2021-12-12 | DI.MRI_ITS ---
Exam(s) MR UPPER JOINT RT WO EXAM: MR UPPER JOINT RT WO CLINICAL HISTORY: RT SHOULDER JOINT PAIN M25.511, SEVERAL MONTHS OF PAIN AND LACK OF MOTION TECHNIQUE: Multiplanar multisequence MRI of the shoulder was performed. COMPARISON: MR MR UPPER JOINT LT WO from 09/15/2019 (opposite-left shoulder) CR,XR XR CHEST 2V PA LATERAL from 08/07/2021 FINDINGS: MARROW:There is no evidence of fracture, Hill-Sachs deformity, bony Bankart lesion, nor ominous osseo us lesions. ROTATOR CUFF MECHANISM: AC JOINT/ACROMIUM: No obvious degenerative changes. No downgoing osteophytes.. There is no evidence of os acromiale. There is a small amount of fluid in the subacromial bursa space. Supraspinatus: There is small focus of increased signal at the level of the foot pad insertion which is not traverse the thickness of the tendon.. There is no muscle atrophy. Small amount of fluid is noted in the subacromial bursa. Infraspinatus: Intact. No tear nor atrophy. There are a few degenerative subarticular cysts in the greater tuberosity subjacent to the infraspinatus attachment site. Teres Minor: Intact. No evidence of tear nor muscle atrophy. Subscapularis/anterior cuff: Intact. No abnormal signal at the level of the multipennate insertional fibers. No significant tear nor atrophy. BICEPS TENDON: Normally position in the intertubercular groove. No evidence of tear. No tenosynovitis. LABRUM: No labral tear identified. No evidence of paralabral cyst. LABROLIGAMENTOUS/CAPSULAR COMPLEX: There is no evidence of avulsion of the anterior-inferior labrum, capsule, inferior glenohumeral liga ment complex nor disruption of the scapular periosteum to suggest the presence of a Bankart lesion. GLENOHUMERAL JOINT: There is a small joint effusion. There is some synovial thickening anteriorly. This is actually anterior to the subscapularis tendon. No evidence of capsular tear. The inferior g lenohumeral ligament is intact. QUADRILATERAL SPACE: No evidence of mass in the region of the axillary nerve and dorsal circumflex hu meral vessels. Visualized triceps muscle at this level appears unremarkable. IMPRESSION: 1. Is a small area of signal abnormality in the foot pad insertion of the supraspinatus which does no t have the appearance of a full-thickness tear, despite the presence of some fluid in the subacromial bursa space. May represent partial tearing with bursitis. 2. No obvious abnormal findings in the other 3 muscles of the rotator cuff mechanism. 3. No evidence of biceps tendon tear nor labral tears. No evidence of paralabral cyst. 4. Fluid signal is seen anteriorly, between the subscapularis tendon and the coracoid process. Ther e is no abnormal intraosseous signal seen in the coracoid. DATA REPOSITORY:
== END 2021-12-12 01:23 ==
PROVIDERS: PCP Family Medicine; Visit Provider Family Medicine
DX: M25.511 Pain in right shoulder (principal); M25.411 Effusion, right shoulder; M25.811 Other specified joint disorders, right shoulder
CPT/HCPCS: 73221

== ENCOUNTER → 2021-12-26 10:56 | Outpatient (BNVA) | payer MEDICARE, MEDICAID, SELFPAY | PROVIDERS: PCP Family Medicine; Referring Provider Family Medicine; Visit Provider Physical Therapy Assistant | DX: R19.5 Other fecal abnormalities (principal); E11.9 Type 2 diabetes mellitus without complications | CPT/HCPCS: 99214 ==

== ENCOUNTER 2021-12-30 03:05 | Outpatient (CLI) | payer MEDICARE, MEDICAID, SELFPAY ==
[2021-12-30 10:07] LABS: Source Nasal/Nares
[2021-12-30 12:57] LABS: COVID-19 PCR Negative (Negative)
== END 2021-12-30 03:06 | disposition home or self-care (01) ==
LOC: LBO 03:05
PROVIDERS: PCP Family Medicine; Visit Provider Surgery
DX: Z20.822 Contact with and (suspected) exposure to COVID-19 (principal)
CPT/HCPCS: 87635

== ENCOUNTER 2021-12-31 08:50 | Day surgery (SDC) | payer MEDICARE, MEDICAID, SELFPAY ==
[2021-12-31 08:54] VITALS: BP 115/72; PULSE 95; RESP 16; TEMP 36.8; O2SAT 96
[2021-12-31] MEDS: Lactated Ringers 1,000 ML 80 ML IV (09:36)
--- NOTE | 2021-12-31 09:49 | W.ANESPRE ---
General Info Date of Service Date Performed: 12/31/21 Height: 5 ft 4 in Weight: 96 kg Body Mass Index (BMI): 36.3 Surgical Procedure: Operation Date: 12/31/21 10:20 Proposed Procedures Side Surgeon domenico Corona, Meds Allergies and Home Medications Allergies Allergy/AdvReac Type Severity Reaction Status Date / Time Penicillins Allergy Severe throat Verified 12/31/21 09:04 closes Sulfa (Sulfonamide Allergy Mild Hives Verified 12/31/21 09:04 Antibiotics) lactose AdvReac Diarrhea Verified 12/31/21 09:04 Home Medication Medication Instructions Recorded rosuvastatin [Crestor] 10 mg PO QPM 06/28/13 riboflavin (vitamin B2) [Vitamin 200 mg PO BID 03/13/15 B-2] levothyroxine [Synthroid] 50 mcg PO HS 03/05/17 magnesium oxide 800 mg PO BID 03/05/17 pregabalin [Lyrica] 100 mg PO TID 03/06/17 vitamin F72-vmdwy acid 1 ea PO DAILY 03/11/17 albuterol sulfate [Ventolin HFA] 2 puff INHALATION QID PRN 03/10/19 naloxone [Narcan] 1 spray INTRANASAL ONCE PRN 03/10/19 omeprazole 20 mg PO DAILY 03/10/19 prochlorperazine maleate 10 mg PO DAILY PRN 03/10/19 metoprolol succinate 50 mg 50 mg PO DAILY #30 tab 03/21/19 tablet,extended release 24 hr valacyclovir 1 gram tablet 500 mg PO QHS 03/21/19 lamotrigine 100 mg PO HS 09/28/19 aspirin 81 mg PO DAILY #14 tab 09/30/19 polyethylene glycol 3350 17 g PO DAILY PRN 12/22/19 naratriptan 2.5 mg tablet 2.5 mg PO BID PRN 03/27/20 paroxetine HCl 20 mg tablet 40 mg PO DAILY tab 03/27/20 ergocalciferol (vitamin D2) 50 mcg 50 mcg PO DAILY 04/02/21 (2,000 unit) capsule estradiol 1 mg PO BID 06/10/21 cholecalciferol (vitamin D3) 50 50 mcg PO DAILY 11/21/21 mcg (2,000 unit) capsule hydromorphone 2 mg tablet 2 mg PO BID tab 11/21/21 loratadine 10 mg tablet 10 mg PO DAILY 11/21/21 melatonin 10 mg capsule 10 mg PO HS PRN 11/21/21 metformin 500 mg tablet,extended 1,000 mg PO BID tab 11/21/21 release 24 hr nicotine 10 mg inhalation cartridge 1 inh INHALATION 4-6XD PRN 11/21/21 nicotine 7 mg/24 hr daily 1 patch TRANSDERMAL Q24H 11/21/21 transdermal patch dulaglutide 1.5 mg/0.5 mL 3 mg SUBCUT QWEEK ml 12/18/21 subcutaneous pen injector losartan 25 mg tablet 25 mg PO DAILY 12/18/21 bisacodyl 5 mg tablet,delayed 5 mg PO ONCE #4 tab 12/26/21 release polyethylene glycol 3350 17 17 g PO ONCE #238 g 12/26/21 gram/dose oral powder prednisone 12/31/21 Current Visit Medications: Current Medications Generic Name Dose Route Start Last Admin Trade Name Freq PRN Reason Stop Dose Admin Ringer's Solution 1,000 mls @ 80 mls/hr 12/31/21 06:00 12/31/21 09:36 IV 01/29/22 23:59 80 mls/hr INFUSION URSULA Administration IV Miscellaneous Supplies 1 each 12/31/21 06:00 Iv Access IV 01/29/22 23:59 DIRECTED URSULA Sodium Chloride 0 ml 12/31/21 06:00 Normal Saline Flush 10 Ml Syr IV 01/29/22 23:59 PRN PRN Sodium Chloride 0 ml 12/31/21 06:00 Normal Saline 10 Ml Vial IJ 01/29/22 23:59 DIRECTED PRN Sterile Water 0 ml 12/31/21 06:00 Water,Injection,Sterile 10 Ml Vial IJ 01/29/22 23:59 DIRECTED PRN PFSH Active Problems Active Problems: Problem Status Onset Code CAD (coronary artery disease) Cardiomyopathy Bipolar disorder F31.9 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 01/25/14 O90.3, I42.0 Atypical chest pain R07.89 Type 2 diabetes mellitus E11.9 DVT prophylaxis Palpitations R00.2 Spell of altered consciousness R40.4 Elevated brain natriuretic peptide (BNP) level R79.89 Chest pain R07.9 Screening for colon cancer Z12.11 Tobacco use Z72.0 Fecal occult blood test positive R19.5 Medical History Medical History Acute kidney injury Anxiety 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 (01/25/14) Bursitis of left shoulder (~03/2019) Carpal tunnel syndrome, left Cervical radiculopathy bilateral Change in mental status Chronic migraine (03/07/15) Chronic pain syndrome Dehydration Depression Diabetes Discharge planning issues Dizziness, nonspecific Dyspnea Elbow fracture, right Fatigue Hyperlipidemia Hyperthyroidism Impingement syndrome of left shoulder (~03/2019) Lactose intolerance Left rotator cuff tear (~03/2019) Medication overuse headache (03/07/15) Migraine headache with aura (03/07/15) Migraine headache without aura (03/07/15) Morbid obesity Orthostasis Polycystic ovaries Shortness of breath Splenomegaly Suicidal ideation Tachycardia Tendinitis of long head of biceps brachii of left shoulder (~03/2019) Unresponsive episode Surgical History Surgical History History of arthroscopy of left shoulder History of section x2 History of endometrial ablation Hx of cardiac catheterization 08/2021-no stent placed Previous back surgery S/P hysterectomy Tobacco Smoking/Tobacco Use Status: Current every day Tobacco Type: cigarettes Smoking cigarettes per day: 6 Quit Status: quit date established Alcohol Alcohol Intake: never Substance Use Substance use: Never Substance use type: does not use Vital Signs and Lab Results Vital Signs Most Recent Vital Signs in EMR: Most Recent Vital Signs Temp Pulse Resp BP Pulse Ox 36.8 C 95 H 16 115/72 96 12/31/21 08:54 12/31/21 08:54 12/31/21 08:54 12/31/21 08:54 12/31/21 08:54 Point of Care Results Point of Care Results: Finger Stick Blood Glucose 127 12/31/21 09:00 Lab Results Blood Type / Crossmatch: No Data to Display Complete Blood Count: No Data to Display Complete Metabolic Panel: No Data to Display Liver Function Panel: No Data to Display Coagulation Panel: No Data to Display Cardiac Panel: No Data to Display Arterial Blood Gas: No Data to Display Venous Blood Gas: No Data to Display Pancreas Panel: No Data to Display Thyroid Panel: No Data to Display Infectious Disease: Coronavirus (COVID-19)(PCR) Negative (Negative) 12/30/21 08:45 12/30/21 Coronavirus 2019 Source Nasal/Nares 12/30/21 08:45 12/30/21 Blood Cultures: No Data to Display Toxicology Panel: No Data to Display Panel: No Data to Display Imaging and Studies Imaging and Studies Study information below may be from another EMR and interpreted by another provider. Please see original notes in EMR for more complete details. EKG Summary: Conclusion Sinus rhythm...normal P axis, V-rate 60- 99 Low voltage, precordial leads...precordial leads <1.0mV. Sinus. No STEMI. I have reviewed and interpreted ECG and agree with software generated interpretation. 08/07/21 Echocardiogram Summary: Conclusion Normal left ventricular wall thickness and chamber size. Systolic function is borderline. Estimated ejection fraction is 50 to 55% with mild global hypokinesis Normal right ventricular size and systolic function Both atria are normal in size There are no significant structural valvular abnormalities or hemodynamically significant valvular findings 09/19/20 Anesthesia Assessment and Plan Anesthesia History Personal History: PONV Family History: No Family History of Anesthesia Complications Exercise Tolerance Exercise Tolerance: Metabolic Equivalents>4 Pertinent Negatives Pertinent Negatives: No Symptoms of GERD (Well controlled) Cardiac & Pulmonary Exam Cardiac Exam: Normal S1/S2 Heart Sounds Pulmonary Exam: Clear Bilateral Breath Sounds Cardiac and Pulmonary Comment:: Trying to quit smoking. Using inhaler a bit more frequently. Implantable Cardiac Device Does patient have a Pacemaker or an ICD?: No Airway Exam Known Difficult Airway: No Mallampati Class: 1 Mouth Opening: Normal (> 3cm) Thyromental Distance: Greater than 3 cm Neck Range of Motion: Full ROM Neck Circumference: Normal Teeth Condition: Normal Dentition ASA Classification ASA Score: ASA 2 Emergency Case?: No NPO Status NPO Status: NPO Clears >2 hours, Solids >8 hours Status Status: History of Hysterectomy Anesthesia Plan Resuscitation Status: Full Code Anesthesia Technique: General Anesthesia Airway Planned: Natural Airway Monitors Used: Standard Monitors
[2021-12-31 09:57] VITALS: BMI 36.3
[2021-12-31 11:47] VITALS: BP 101/66; PULSE 92; RESP 16; TEMP 36.5; O2SAT 94
--- NOTE | 2021-12-31 11:53 | W.COLOREPORT ---
Colonoscopy Report Date of procedure: 12/31/21 Pre-op diagnosis general: hemeocult+ Post-op diagnosis procedure note: same Surgeon: Ngco Corona Anesthesia Type: General:No Airway Estimated blood loss (mL): 0 Pathology: none sent Complications: None Disposition: same day Prep: Miralax/Dulcolax Retraction Time: 8 Procedure Description: After informed consent was obtained the patient was taken to the procedure room and placed in a left decubitous position. Monitors were applied and a time out was done. The patients name, date of , procedure, allergies to medications and metal in their body was reviewed. The patient was then sedated. Once sedated and comfortable a rectal exam was done. She has x1 very small external hemorrhoidal remnant. Internal exam revealed a normal sphincter tone and no palpable masses. The scope was then introduced and retrofelexed. No internal hemorrhoids were identified. The scope was then advanced to the cecum w/out difficulty. The TI and appendiceal orifice were identified. The prep was BBPS 1 in transverse colon. BBPS- 2 in left and right colon. Colon is very redundant. The scope was then slowly retracted over 7 minutes back into the rectum. There are no polyps, AVMs, or diverticula visualized today. At 50 cm she does have ESBL submucosal lesion. This is probably a lipoma. The overlying Mucosa appeared normal under NBI. The the scope was removed and the patient was woken up and taken back to Same day surgery in stable condition. The patient tolerated the procedure well and there were no immediate complications. Follow up: The patient should follow up in 10 years unless they develop changes in bowel habits or other new gastrointestinal complaints.
--- NOTE | 2021-12-31 11:57 | W.ANESPOSTOP ---
Postoperative Evaluation Date, Time and Location Date Performed: 12/31/21 Time Performed: 11:47 Patient Location: Day Surgery Unit Vital Signs Most Recent Imported Vital Signs: Most Recent Vital Signs Temp Pulse Resp BP Pulse Ox 36.5 C 92 H 16 101/66 94 12/31/21 11:47 12/31/21 11:47 12/31/21 11:47 12/31/21 11:47 12/31/21 11:47 Pain Score Most Recent Pain Score: Most Recent Pain Score Pain Level 0 12/31/21 11:47 Assessment Mental Status: Awake (Alert & Oriented to Patient Baseline) Airway and Respiratory Function: Patent airway with normal (patient baseline) respiratory exam Cardiovascular Function: Hemodynamically Stable Hydration Status: Adequately Hydrated Nausea & Vomiting: No Nausea or Vomiting Pain: Pt. Denies Any Pain Peripheral Nerve Block: Patient did not receive a nerve block
--- NOTE | 2021-12-31 12:02 | W.PM.DSUDISC ---
Discharge Plan Disposition Patient Disposition: HOME Condition: Good Discharge Details Reason For Visit: colon scope Attending Provider: Ngoc Corona Primary Care Provider: Edie Ellis Home Meds and New Rx's Prescriptions: New hydrocortisone 2.5 % cream 1 applic topical QID Qty: 30 RF: 6 Continued metoprolol succinate 50 mg tablet extended release 24 hr 50 mg PO DAILY Qty: 30 RF: 11 ergocalciferol (vitamin D2) 50 mcg (2,000 unit) capsule 50 mcg PO DAILY RF: 0 vitamin E85-okfzm acid 1 EACH tablet 1 ea PO DAILY RF: 0 loratadine [Allergy Relief (loratadine)] 10 mg tablet 10 mg PO DAILY RF: 0 Nicotrol 10 mg cartridge 1 inh inhalation 4-6XD PRNRF: 0 nicotine 7 mg/24 hr patch 24 hour 1 patch transdermal Q24H RF: 0 cholecalciferol (vitamin D3) 50 mcg (2,000 unit) capsule 50 mcg PO DAILY RF: 0 melatonin 10 mg capsule 10 mg PO HS PRNRF: 0 hydromorphone [Dilaudid] 2 mg tablet 2 mg PO BID RF: 0 metformin 500 mg tablet extended release 24 hr 1,000 mg PO BID RF: 0 Trulicity 1.5 mg/0.5 mL pen injector 3 mg subcut QWEEK RF: 0 losartan 25 mg tablet 25 mg PO DAILY RF: 0 rosuvastatin [Crestor] 5 MG tablet 10 mg PO QPM RF: 0 naratriptan 2.5 mg tablet 2.5 mg PO BID PRNRF: 0 riboflavin (vitamin B2) [Vitamin B-2] 50 MG tablet 200 mg PO BID RF: 0 pregabalin [Lyrica] 75 MG capsule 100 mg PO TID RF: 0 polyethylene glycol 3350 17 gram/dose Powder 17 g PO DAILY PRNRF: 0 paroxetine HCl 20 mg tablet 40 mg PO DAILY RF: 0 levothyroxine [Synthroid] 25 MCG tablet 50 mcg PO HS RF: 0 magnesium oxide 400 MG tablet 800 mg PO BID RF: 0 omeprazole 20 mg Capsule,Delayed Release(Dr/Ec) 20 mg PO DAILY RF: 0 prochlorperazine maleate 10 mg Tablet 10 mg PO DAILY PRN (Reason: Headache) RF: 0 albuterol sulfate [Ventolin HFA] 90 mcg/actuation Hfa Aerosol Inhaler 2 puff INHALATION QID PRNRF: 0 naloxone [Narcan] 4 mg/actuation [place],Non-Aerosol 1 spray INTRANASAL ONCE PRNRF: 0 valacyclovir 1 gram tablet 500 mg PO QHS RF: 0 lamotrigine 100 mg Tablet Extended Release 24hr 100 mg PO HS RF: 0 aspirin 81 mg tablet,delayed release (DR/EC) 81 mg PO DAILY Qty: 14 RF: 0 estradiol 1 mg tablet 1 mg PO BID RF: 0 prednisone 20 mg tablet RF: 0 Discontinued bisacodyl [Dulcolax (bisacodyl)] 5 mg tablet,delayed release (DR/EC) 5 mg PO ONCE Qty: 4 RF: 0 polyethylene glycol 3350 17 gram/dose powder 17 g PO ONCE Qty: 238 RF: 0 Discharge Instructions Additional Instructions: DSU Colonoscopy Post-Op Instructions Instructions for Everyone who is given Anesthesia: For your safety, please do the following for the next twenty-four (24) hours: *Do Not operate a motor vehicle (car, truck, motorcycle, etc.) *Do Not drink alcoholic beverages or use any recreational drugs for the first 24 hours or while taking pain medications. The medications in your body may have a reaction that can be dangerous. *Do Not make any important decisions or sign any important papers. Findings: normal external hemorrhoids. -make sure you are following a high fiber diet. You want to move your bowels daily w/ no straining. -steroid cream as needed for pain and bleeding. Should not be used for more than 14 days in a row Follow up: 1. No lifting over 20 pounds or strenuous activity for the first 24 hours after your procedure. After 24 hours there are no restrictions on your activity but you may feel fatigued for a few days. 2. After you arrive home you may have a light meal and return to your normal diet as you can tolerate it without feeling sick to your stomach. 3. You may have a bloated, gaseous feeling in your belly (abdomen) after a colonoscopy. Passing gas and belching will help. Walking or lying down on your left side with your knees flexed may relieve the discomfort. Call the office at [phone] (Office) or [phone] (Hospital) right away if you notice any of the following: a.Vomiting of blood or ?coffee ground stools?. b.Rectal bleeding 1Tbsp, blood clots or continuous bleeding. c.Severe belly (abdominal) pain. d.A hard distended belly (abdomen) and an inability to pass gas. 4. Please don?t expect to have a normal BM (bowel movement) for 2-3 days after your procedure. 5. If there are questions regarding the findings of your procedure, please contact your doctor 6. If you are unable to contact your doctor with a problem, contact the hospital at [phone]. 7. Continue all your regular medications unless directed otherwise. I understand the above instructions and have no questions. Signature of Patient or Adult Escort Name of Responsible Adult Escort Signature of Nurse Date/Time Activity:: see above Diet:: see above Discharge Orders Discharge Orders: Discharge Order (Routine); Ordered 12/31/21 Ordered By: Ngoc Corona DS: Diagnosis Discharge Diagnosis (1) Hematest positive stools: Status: Acute
[2021-12-31 12:17] VITALS: BP 113/73; PULSE 88; RESP 16; TEMP 36.7; O2SAT 95
== END 2021-12-31 12:50 | disposition home or self-care (01) ==
PROVIDERS: PCP Family Medicine; Visit Provider Surgery
PROC: 0DJD8ZZ Inspection of Lower Intestinal Tract, Via Natural or Artificial Opening Endoscopic (ICD-10-PCS; CPT 45378; principal; 2021-12-31 10:15)
DX: R19.5 Other fecal abnormalities (principal); I42.9 Cardiomyopathy, unspecified; I25.10 Atherosclerotic heart disease of native coronary artery without angina pectoris; E11.9 Type 2 diabetes mellitus without complications; R56.9 Unspecified convulsions; G89.29 Other chronic pain; E03.9 Hypothyroidism, unspecified; F31.9 Bipolar disorder, unspecified
CPT/HCPCS: 45378; J2001; J2405

== ENCOUNTER 2022-01-22 15:39 | Emergency (ER) | payer MEDICARE, MEDICAID, SELFPAY ==
[2022-01-22] VITALS (10 sets, daily range): BP systolic 106–142; BP diastolic 69–90; PULSE 80–98; RESP 14–25; TEMP 36.6; O2SAT 93–96
--- NOTE | 2022-01-22 15:45 | RT.EKG_ITS ---
APPROVED REPORT Exam: Resting ECG Reason for Exam: trauma Patient Location: E HR:88 bpm ECG Measurements Heart Rate 88 AXIS MO 156 P -1 QRSd 81 QRS 4 QT 396 T 23 QTc 479 Conclusion Sinus rhythm...normal P axis, V-rate 60- 99 Low voltage, precordial leads...precordial leads <1.0mV sinus rhythm, normal intervals, non ischemic
--- NOTE | 2022-01-22 16:15 | DI.CT_ITS ---
Exam(s) CT LUMBAR SPINE RECONS CT CHEST/ABD/PEL W EXAM: CT CHEST/ABD/PEL W CLINICAL HISTORY: right scapular pain, flank pain, shortness of christine. TECHNIQUE: Imaging Protocol: Axial computed tomography images with coronal and sagittal reformatted images were created and reviewed CONTRAST MATERIAL: Intravenous: Omnipaque 350 Contrast volume:100 ml Oral: / no COMPARISON: CT CT BRAIN NECK CTA from 08/28/[address] LUMBAR SPINE RECONS from 01/22/2022 FINDINGS: CHEST: Tracheobronchial tree: Patent where visualized. Mediastinum and Kayla: No dominant adenopathy or fluid collection. Pulmonary parenchyma: No consolidation or dominant measurable mass. Pleura: No effusion or pneumothorax. Lymph nodes: Within normal limits. Aorta: Thoracic portion non-dilated. Heart: Normal size. Bones: Unremarkable for age. No lytic or blastic lesions. No fracture of the scapula. ABDOMEN: Liver: Enlarged at 26.5 cm in length. Mild diffuse fatty infiltration.. No measurable mass. Gallbladder and biliary tract: No radiodense calculus or dilation. Pancreas: Normal density, no abnormal calcifications or inflammatory process. Spleen: Enlarged at 14.7 cm in length Kidneys: Normal size, contour and axis. No radiodense stones or obstructive uropathy. No masses seen. Adrenal glands: No masses seen. Aorta: Abdominal portion non-dilated. Lymph nodes: Within normal limits. Soft tissues: Unremarkable. PELVIS: Bladder: Symmetric distention, no gross wall thickening. Bowel: No obstruction or bowel wall thickening. Peritoneal cavity: No ascites, collection or mesenteric inflammatory response. Bones: No fracture. Degenerative changes greatest at L 5 S1. Reproductive organs: Status post hysterectomy.. IMPRESSION: No acute abnormality in the chest abdomen or pelvis.. No evidence of fracture of the scapula lower l umbar spine. Hepatosplenomegaly. RADIATION DOSE DELIVERED: Total DLP DATA REPOSITORY: All CT scans at this facility are submitted to the National Radiology Data Registry (NRDR) Dose Index Registry (DIR) with the [employer] (A[employer]). RADIATION OPTIMIZATION: All CT scans at this facility use at least one of these dose optimization te chniques: automated exposure control; mA and/or kV adjustment per patient size (includes targeted exa ms where dose is matched to clinical indication); or iterative reconstruction.
[2022-01-22 17:05] LABS: Abs Immature Grans 0.03 10^3/uL (0.0-0.06); Absolute Basophil Count 0.05 10^3/uL (0.0-0.2); Absolute Eosinophil Count 0.17 10^3/uL (0.0-0.7); Absolute Lymphocyte Count 3.51 10^3/uL (1.2-3.4); Absolute Monocyte Count 0.44 10^3/uL (0.1-0.8); Absolute Neutrophil Count 3.76 10^3/uL (1.2-6.7); Basophils % 0.6; Eosinophils % 2.1; HCT 43.2 % (36.0-46.0); HGB 14.2 g/dL (11.2-15.7); Immature Grans % 0.4; Lymphocytes % 44.1; MCH 29.8 pg (27.0-33.0); MCHC 32.9 % (32.0-36.0); MCV 90.8 fL (80-95); MPV 10.4 fL (8.0-11.0); Monocytes % 5.5; Neutrophils % 47.3; Nucleated RBC 0 %; Platelet Count 186 10^3/uL (130-400); RBC 4.76 10^6/uL (3.93-5.22); RDW 15.7 % (11.7-14.6); RDW-SD 52.3 fL; WBC 7.96 10^3/uL (4.4-10.8)
[2022-01-22] MEDS: HYDROmorphone 2 MG/ML VIAL 1 MG IVP (17:12)
[2022-01-22] MEDS: Normal Saline 500 ML IV (17:13)
[2022-01-22 17:25] LABS: ALT 23 U/L (14-59); AST 22 U/L (15-37); Albumin 3.4 g/dL (3.4-5.0); Alkaline Phosphatase 57 U/L (46-116); Anion Gap 10.2 mmol/L (3-11); BUN 9 mg/dL (7-18); Bilirubin, Total 0.2 mg/dL (0.2-1.0); CO2 26.8 mmol/L (21.0-32.0); Chloride 105 mmol/L (98-107); Estimated GFR 59.69 (mL/min/1.73m2); Glucose 122 mg/dL (74-106); Lipase 219 U/L (73-393); Magnesium 1.6 mg/dL (1.8-2.4); Potassium 4.2 mmol/L (3.5-5.1); Sodium 142 mmol/L (136-145); Troponin I < 50 ng/L (<or=60)
[2022-01-22] MEDS: Omnipaque 350 MG/ML 100 ML BTL IJ (18:17)
--- NOTE | 2022-01-22 18:17 | DI.VRAD_ITS ---
PROCEDURE INFORMATION: Exam: CT Lumbar Spine Without Contrast Exam date and time: 01/22/2022 5:20 PM Age: 46 years old Clinical indication: Injury or trauma; Fall; Blunt trauma (contusions or hematomas); Injury date: 01/22/22 TECHNIQUE: Imaging protocol: Computed tomography images of the lumbar spine without contrast. Radiation optimization: All CT scans at this facility use at least one of these dose optimization techniques: automated exposure control; mA and/or kV adjustment per patient size (includes targeted exams where dose is matched to clinical indication); or iterative reconstruction. COMPARISON: CT ABD PELVIS WITH CONTRAST 03/05/2017 9:04 PM FINDINGS: Vertebrae: Five lumbar type vertebral bodies with vestigial rib on the right at L1. No evidence of acute fracture or subluxation. No aggressive osseous lesion is identified. Discs/Spinal canal/Neural foramina: There is stable retrolisthesis of L5 on S1 with endplate osteophyte formation resulting in narrowing of the subarticular recesses and neural foramina. Mild discogenic disease at L4-L5 does not appear to result in significant spinal canal stenosis or neural foraminal narrowing. Soft tissues: See the abdomen and pelvis CT. IMPRESSION: 1. No evidence of acute fracture or subluxation of the lumbar spine. 2. Stable degenerative changes greatest at L5-S1. Dictated and Authenticated by: Russell Suarez MD. Ordering:ORAL Walker MD
--- NOTE | 2022-01-22 18:19 | DI.VRAD_ITS ---
PROCEDURE INFORMATION: Exam: CT Head Without Contrast Exam date and time: 01/22/2022 4:26 PM Age: 46 years old Clinical indication: Injury or trauma; Fall; Concussion/head injury TECHNIQUE: Imaging protocol: Computed tomography of the head without contrast. COMPARISON: CT HEAD CERVICAL SPINE WO 09/15/2020 6:08 AM FINDINGS: Brain: No evidence for acute transcortical infarct. No mass effect or midline shift. No extra-axial collection. No acute intracranial hemorrhage. Basal cisterns are patent. Cerebral ventricles: No ventriculomegaly. Paranasal sinuses: Visualized sinuses are unremarkable. No fluid levels. Mastoid air cells: Visualized mastoid air cells are well aerated. Bones/joints: Unremarkable. No acute fracture. Soft tissues: Unremarkable. IMPRESSION: No acute intracranial hemorrhage or mass effect. PROCEDURE INFORMATION: Exam: CT Cervical Spine Without Contrast Exam date and time: 01/22/2022 4:26 PM Age: 46 years old Clinical indication: Injury or trauma; Fall; Concussion/head injury TECHNIQUE: Imaging protocol: Computed tomography images of the cervical spine without contrast. COMPARISON: CT HEAD CERVICAL SPINE WO 09/15/2020 6:08 AM FINDINGS: Bones/joints: No acute fracture or traumatic subluxation. No spondylolisthesis. The atlantooccipital and atlantoaxial articulations are intact. Occipital condyles are intact. Facet joint alignments are maintained. Discs/Spinal canal/Neural foramina: No significant disc protrusion. No severe spinal canal stenosis. No significant neural foraminal narrowing. Prevertebral Space: No prevertebral soft tissue swelling. Lungs: Lung apices are normal. Soft tissues: Unremarkable. IMPRESSION: No acute fracture or traumatic subluxation. Dictated and Authenticated by: Jairo Christy MD. Ordering:ORAL Walker MD
--- NOTE | 2022-01-22 18:38 | ED.GENADUL_ITS ---
Discharge Plan Disposition Patient Disposition: HOME Condition: Stable Discharge Details Clinical Impression: Cervical strain, Lumbar strain, Concussion Primary Care Provider: Edie Ellis ED Provider: Denise Guzman Home Meds and New Rx's Prescriptions: Continued metoprolol succinate 50 mg tablet extended release 24 hr 50 mg PO DAILY Qty: 30 11RF ergocalciferol (vitamin D2) 50 mcg (2,000 unit) capsule 50 mcg PO DAILY 0RF vitamin W46-hyype acid 1 EACH tablet 1 ea PO DAILY 0RF Label Comments: 1000 mcg loratadine [Allergy Relief (loratadine)] 10 mg tablet 10 mg PO DAILY 0RF nicotine 7 mg/24 hr patch 24 hour 1 patch transdermal Q24H 0RF cholecalciferol (vitamin D3) 50 mcg (2,000 unit) capsule 50 mcg PO DAILY 0RF melatonin 10 mg capsule 10 mg PO HS PRN0RF hydromorphone [Dilaudid] 2 mg tablet 2 mg PO BID 0RF metformin 500 mg tablet extended release 24 hr 1,000 mg PO BID 0RF Trulicity 1.5 mg/0.5 mL pen injector 3 mg subcut QWEEK 0RF losartan 25 mg tablet 25 mg PO DAILY 0RF rosuvastatin [Crestor] 5 MG tablet 10 mg PO QPM 0RF naratriptan 2.5 mg tablet 2.5 mg PO BID PRN0RF riboflavin (vitamin B2) [Vitamin B-2] 50 MG tablet 200 mg PO BID 0RF pregabalin [Lyrica] 75 MG capsule 100 mg PO TID 0RF Label Comments: 100 mg am, 100 mg 2 pm, 100 mg at HS polyethylene glycol 3350 17 gram/dose Powder 17 g PO DAILY PRN0RF paroxetine HCl 20 mg tablet 40 mg PO DAILY 0RF levothyroxine [Synthroid] 25 MCG tablet 50 mcg PO HS 0RF magnesium oxide 400 MG tablet 800 mg PO BID 0RF omeprazole 20 mg Capsule,Delayed Release(Dr/Ec) 20 mg PO DAILY 0RF prochlorperazine maleate 10 mg Tablet 10 mg PO DAILY PRN (Reason: Headache) 0RF albuterol sulfate [Ventolin HFA] 90 mcg/actuation Hfa Aerosol Inhaler 2 puff INHALATION QID PRN0RF naloxone [Narcan] 4 mg/actuation [place],Non-Aerosol 1 spray INTRANASAL ONCE PRN0RF Label Comments: Never used. valacyclovir 1 gram tablet 500 mg PO QHS 0RF lamotrigine 100 mg Tablet Extended Release 24hr 100 mg PO HS 0RF aspirin 81 mg tablet,delayed release (DR/EC) 81 mg PO DAILY Qty: 14 0RF Rx Instructions: Take 1 daily with a meal for 30 days estradiol 1 mg tablet 1 mg PO BID 0RF Label Comments: TAKE 1 TABLET BY MOUTH EVERY MORNING THEN 2 TABLETS EVERY EVENING hydrocortisone 2.5 % cream 1 applic topical QID Qty: 30 6RF Discharge Instructions Instructions: Cervical Strain (ED), Concussion (ED), Low Back Strain (ED) Additional Instructions: Take Tylenol as needed for pain and your prescribed medications Discharge Data Discharge Date/Time-TO BE ENTERED AT DEPARTURE: 01/22/22 19:59 Medical Decision Making Patient is diffusely tender and has numerous comorbidities I am therefore ordering CT scans of patient's head, cervical spine, chest, abdomen, and pelvis The do not show evidence of acute abnormality per virtual radiology the patient Patient was given a single dose of Dilaudid and feeling improvement She has p.o. at home prescribed Dilaudid and will take her her prescription She is given a social to return should she have new or worsening complaints Her diagnostic labs acute change from prior She is ambulatory with antalgic but steady gait at time of discharge home Medical Records Medical records reviewed: Yes I reviewed the patient's medical records. Lab Data Lab results reviewed: Yes I reviewed the patient's lab results. HPI General Date/Time Provider Initiated Documentation: 01/22/22 15:57 . HPI Narrative: This 46-year-old female presents fall down 5 stairs. She states her hip gave out. She states that this happens frequently and she is being evaluated for muscular dystrophy. Patient is complaining of neck pain, headache, back pain. He denies any abdominal pain. She denies chance of . Denies any fever or chills. Denies no loss consciousness. Denies any new strength or sensation change. Have chronic left lower extremity paresthesia secondary to neuropathy. Denies history of anticoagulation. Does take a baby aspirin daily. Denies any change in bowel or bladder. Related Data Home Medications Medication Instructions Recorded Confirmed rosuvastatin 5 mg tablet (Crestor) 10 mg PO QPM 06/28/13 01/22/22 riboflavin (vitamin B2) 50 mg 200 mg PO BID 03/13/15 01/22/22 tablet (Vitamin B-2) levothyroxine 25 mcg tablet 50 mcg PO HS 03/05/17 01/22/22 (Synthroid) magnesium oxide 400 mg (241.3 mg 800 mg PO BID 03/05/17 01/22/22 magnesium) tablet pregabalin 75 mg capsule (Lyrica) 100 mg PO TID 03/06/17 01/22/22 vitamin B12 500 mcg-folic acid 400 1 ea PO DAILY 03/11/17 01/22/22 mcg tablet albuterol sulfate 90 mcg/actuation 2 puff INHALATION QID PRN 03/10/19 01/22/22 aerosol inhaler (Ventolin HFA) naloxone 4 mg/actuation nasal 1 spray INTRANASAL ONCE PRN 03/10/19 01/22/22 spray (Narcan) omeprazole 20 mg capsule,delayed 20 mg PO DAILY 03/10/19 01/22/22 release prochlorperazine maleate 10 mg 10 mg PO DAILY PRN 03/10/19 01/22/22 tablet metoprolol succinate 50 mg 50 mg PO DAILY #30 tab 03/21/19 01/22/22 tablet,extended release 24 hr valacyclovir 1 gram tablet 500 mg PO QHS 03/21/19 01/22/22 lamotrigine 100 mg tablet,extended 100 mg PO HS 09/28/19 01/22/22 release 24 hr aspirin 81 mg tablet,delayed 81 mg PO DAILY #14 tab 09/30/19 01/22/22 release polyethylene glycol 3350 17 17 g PO DAILY PRN 12/22/19 01/22/22 gram/dose oral powder naratriptan 2.5 mg tablet 2.5 mg PO BID PRN 03/27/20 01/22/22 paroxetine HCl 20 mg tablet 40 mg PO DAILY tab 03/27/20 01/22/22 ergocalciferol (vitamin D2) 50 mcg 50 mcg PO DAILY 04/02/21 01/22/22 (2,000 unit) capsule estradiol 1 mg tablet 1 mg PO BID 06/10/21 01/22/22 cholecalciferol (vitamin D3) 50 50 mcg PO DAILY 11/21/21 01/22/22 mcg (2,000 unit) capsule hydromorphone 2 mg tablet 2 mg PO BID tab 11/21/21 01/22/22 (Dilaudid) loratadine 10 mg tablet (Allergy 10 mg PO DAILY 11/21/21 01/22/22 Relief (loratadine)) melatonin 10 mg capsule 10 mg PO HS PRN 11/21/21 01/22/22 metformin 500 mg tablet,extended 1,000 mg PO BID tab 11/21/21 01/22/22 release 24 hr nicotine 7 mg/24 hr daily 1 patch TRANSDERMAL Q24H 11/21/21 01/22/22 transdermal patch dulaglutide 1.5 mg/0.5 mL 3 mg SUBCUT QWEEK ml 12/18/21 01/22/22 subcutaneous pen injector (Trulicity) losartan 25 mg tablet 25 mg PO DAILY 12/18/21 01/22/22 hydrocortisone 2.5 % topical cream 1 applic TOPICAL QID #30 g 12/31/21 01/22/22 Previous Rx's Medication Instructions Recorded metoprolol succinate 50 mg 50 mg PO DAILY #30 tab 03/21/19 tablet,extended release 24 hr aspirin 81 mg tablet,delayed 81 mg PO DAILY #14 tab 09/30/19 release hydrocortisone 2.5 % topical cream 1 applic TOPICAL QID #30 g 12/31/21 Allergies Allergy/AdvReac Type Severity Reaction Status Date / Time Penicillins Allergy Severe throat Verified 12/31/21 09:04 closes Sulfa (Sulfonamide Allergy Mild Hives Verified 12/31/21 09:04 Antibiotics) lactose AdvReac Diarrhea Verified 12/31/21 09:04 General Stated Complaint: Trauma RENATO: 3 Review of Systems All systems reviewed & are unremarkable except as noted in HPI and below PFSH All Active Problems (Updated 01/22/22 @ 19:47 by ANNE Baez) Cervical strain (Acute) Lumbar strain (Acute) Concussion (Acute) Hematest positive stools (Acute) CAD (coronary artery disease) (Chronic) mild non-obstructive disease per cardiac cath report from [facility] [place] 09/07/2013 Cardiomyopathy (Chronic) last echocardiogram 01/27/2019, LVEF 50-55%, no regional wall motion abnormalities, mild LVH, mild MR; normal RV size and function Bipolar disorder (Chronic) 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 (Acute 01/25/14) Atypical chest pain (Acute) Type 2 diabetes mellitus (Acute) DVT prophylaxis (Acute) Palpitations (Acute) Spell of altered consciousness (Acute) Elevated brain natriuretic peptide (BNP) level (Acute) Chest pain (Acute) Screening for colon cancer (Acute) Tobacco use (Acute) Fecal occult blood test positive (Acute) Medical History (Updated 01/22/22 @ 19:47 by ANNE Baez) Acute kidney injury Anxiety 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 (01/25/14) Bursitis of left shoulder (~03/2019) Carpal tunnel syndrome, left Cervical radiculopathy bilateral Change in mental status Chronic migraine (03/07/15) Chronic pain syndrome Dehydration Depression Diabetes Discharge planning issues Dizziness, nonspecific Dyspnea Elbow fracture, right Fatigue Hyperlipidemia Hyperthyroidism Impingement syndrome of left shoulder (~03/2019) Lactose intolerance Left rotator cuff tear (~03/2019) Medication overuse headache (03/07/15) Migraine headache with aura (03/07/15) Migraine headache without aura (03/07/15) Morbid obesity Orthostasis Polycystic ovaries Shortness of breath Splenomegaly Suicidal ideation Tachycardia Tendinitis of long head of biceps brachii of left shoulder (~03/2019) Unresponsive episode Surgical History History of arthroscopy of left shoulder History of section x2 History of endometrial ablation Hx of cardiac catheterization 08/2021-no stent placed Previous back surgery S/P hysterectomy Social History (Updated 12/27/21 @ 09:38 by ANNE Palacio) Smoking/Tobacco Use Status: Current every day Tobacco Type: cigarettes Quit status: quit date established Smoking risk assessment performed?: Yes Alcohol Intake: never Drug use: Never Substance use type: does not use Number of Children: 3 Current gender identity: female What is your relationship status?: Panel score (0-1 are the most socially isolated patients): 0 What type of physical activity do you participate in: none Do you feel safe at home: Yes Do you feel safe in your relationship?: Yes Exam Const General: cooperative and in distress HENMT Other: No visible evidence of trauma, occipital tenderness, uvula midline, pupils equal round and reactive to light and accommodation Eyes Pupils: PERRL Neck Other: Mild midline, predominantly paraspinal tenderness trauma, no carotid bruits Chest Other: Palpable posterior thorax pain on the right Resp Effort & Inspection: normal respiratory effort Auscultation: clear to auscultation bilaterally Cardio Rate: regular rate Rhythm: regular rhythm GI Other: No abdominal tenderness, no CVA tenderness Back/Spine/Pelvis Other: Lumbar and thoracic spine tenderness, no visible evidence of trauma Skin General skin exam: no rashes or lesions noted Neuro General: patient alert and patient oriented x3 Other: Strength and sensation intact distally Extrem General: normal to inspection Other: Mild left pelvic pain Distal pulses intact Course Vital Signs Vital signs: Vital Signs Temperature 36.6 C 01/22/22 15:48 Pulse 88 01/22/22 15:48 Respiratory Rate 16 01/22/22 15:48 Blood Pressure 141/88 H 01/22/22 15:48 Pulse Oximetry 95 01/22/22 15:48 Temperature 36.6 C 01/22/22 15:48 Temperature Source Temporal Artery Scan 01/22/22 15:48 Pulse 94 H 01/22/22 18:00 Pulse 80 01/22/22 17:00 Respiratory Rate 14 01/22/22 17:00 Respiratory Effort Non-Labored 01/22/22 15:56 Respiratory Depth Normal 01/22/22 15:56 Respiratory Pattern Normal 01/22/22 15:56 Blood Pressure 130/69 01/22/22 18:00 Blood Pressure Mean 85 01/22/22 18:00 Blood Pressure Position Supine 01/22/22 15:48 Pulse Oximetry 95 01/22/22 18:00 Oxygen Delivery Method Room Air 01/22/22 15:48 Oxygen Flow Rate 0 01/22/22 15:48 Pain Level 8 01/22/22 17:12 Lab/Test Results Lab/Test Results: Laboratory Tests Range/Units 01/22/22 01/22/22 01/22/22 16:57 16:57 16:57 WBC (4.4-10.8) 10^3/uL 7.96 RBC (3.93-5.22) 10^6/uL 4.76 Hgb (11.2-15.7) g/dL 14.2 Hct (36.0-46.0) % 43.2 MCV (80-95) fL 90.8 MCH (27.0-33.0) pg 29.8 MCHC (32.0-36.0) % 32.9 RDW (11.7-14.6) % 15.7 H Plt Count (130-400) 10^3/uL 186 MPV (8.0-11.0) fL 10.4 Immature Gran % 0.4 Neutrophils % 47.3 Lymphocytes % 44.1 Monocytes % 5.5 Eosinophils % 2.1 Basophils % 0.6 Nucleated RBC % % 0 Absolute Neutrophils (1.2-6.7) 10^3/uL 3.76 Absolute Lymphocytes (1.2-3.4) 10^3/uL 3.51 H Absolute Monocytes (0.1-0.8) 10^3/uL 0.44 Absolute Eosinophils (0.0-0.7) 10^3/uL 0.17 Absolute Basophils (0.0-0.2) 10^3/uL 0.05 Sodium (136-145) mmol/L 142 Cancelled Potassium (3.5-5.1) mmol/L 4.2 Cancelled Chloride (98-107) mmol/L 105 Cancelled Carbon Dioxide (21.0-32.0) mmol/L 26.8 Cancelled Anion Gap (3-11) mmol/L 10.2 Cancelled BUN (7-18) mg/dL 9 Cancelled Creatinine (0.55-1.02) mg/dL 1.0 Cancelled Estimated GFR/1.73 m2 (mL/min/1.73m2) 59.69 Cancelled Glucose (74-106) mg/dL 122 H Cancelled Calcium (8.5-10.1) mg/dL 9.0 Cancelled Magnesium (1.8-2.4) mg/dL 1.6 L Total Bilirubin (0.2-1.0) mg/dL 0.2 Cancelled AST (15-37) U/L 22 Cancelled ALT (14-59) U/L 23 Cancelled Alkaline Phosphatase (46-116) U/L 57 Cancelled Troponin I (<or=60) ng/L < 50 Total Protein (6.4-8.2) g/dL 7.0 Cancelled Albumin (3.4-5.0) g/dL 3.4 Cancelled Lipase (73-393) U/L 219
--- NOTE | 2022-01-22 19:35 | DI.VRAD_ITS ---
PROCEDURE INFORMATION: Exam: CT Chest With Contrast; Diagnostic Exam date and time: 01/22/2022 5:19 PM Age: 46 years old Clinical indication: Other: Right scapular pain, flank pain SOB TECHNIQUE: Imaging protocol: Diagnostic computed tomography of the chest with contrast. Radiation optimization: All CT scans at this facility use at least one of these dose optimization techniques: automated exposure control; mA and/or kV adjustment per patient size (includes targeted exams where dose is matched to clinical indication); or iterative reconstruction. Contrast material: OMNIPAQUE 350; Contrast volume: 100 ml; Contrast route: INTRAVENOUS (IV); COMPARISON: 1. CT CHEST PE CTA 03/09/2019 7:26 PM 2. CR XR CHEST 2V PA LATERAL 08/07/2021 7:23 PM FINDINGS: Lungs: Unremarkable. No consolidation. No masses. Pleural spaces: Unremarkable. No pneumothorax. No pleural effusion. Heart: Unremarkable. No cardiomegaly. No pericardial effusion. Aorta: Unremarkable. No aortic aneurysm. Lymph nodes: Unremarkable. No enlarged lymph nodes. Bones/joints: Mild degenerative changes of the thoracic spine, grossly stable. The right scapula appears unremarkable. Soft tissues: Unremarkable. IMPRESSION: No acute abnormality of the chest. PROCEDURE INFORMATION: Exam: CT Abdomen And Pelvis With Contrast Exam date and time: 01/22/2022 5:19 PM Age: 46 years old Clinical indication: Other: Right scapular pain, flank pain SOB TECHNIQUE: Imaging protocol: Computed tomography of the abdomen and pelvis with contrast. Radiation optimization: All CT scans at this facility use at least one of these dose optimization techniques: automated exposure control; mA and/or kV adjustment per patient size (includes targeted exams where dose is matched to clinical indication); or iterative reconstruction. Contrast material: OMNIPAQUE 350; Contrast volume: 100 ml; Contrast route: IV; COMPARISON: CT ABD PELVIS WITH CONTRAST 03/05/2017 9:04 PM FINDINGS: Liver: The liver measures up to 26.5 cm. Gallbladder and bile ducts: Normal. No calcified stones. No ductal dilation. Pancreas: Normal. No ductal dilation. Spleen: Splenomegaly measures 14.7 cm. Adrenal glands: Normal. No mass. Kidneys and ureters: Normal. No hydronephrosis. Stomach and bowel: Unremarkable. No obstruction. No mucosal thickening. Appendix: No evidence of appendicitis. Intraperitoneal space: Unremarkable. No free air. No significant fluid collection. Vasculature: Unremarkable. No abdominal aortic aneurysm. Lymph nodes: Unremarkable. No enlarged lymph nodes. Urinary bladder: Unremarkable as visualized. Reproductive: Status post hysterectomy. Bones/joints: See the lumbar spine CT for evaluation of the lumbar spine. Soft tissues: Unremarkable. IMPRESSION: 1. Hepatosplenomegaly. 2. Status post hysterectomy. Dictated and Authenticated by: Russell Suarez MD. Ordering:ORAL Walker MD
[2022-01-22 19:49] LABS: Troponin I < 50 ng/L (<or=60)
== END 2022-01-22 19:59 | disposition home or self-care (01) ==
PROVIDERS: Emergency Provider Physician Assistant; PCP Family Medicine
DX: S06.0X0A Concussion without loss of consciousness, initial encounter (principal); S16.1XXA Strain of muscle, fascia and tendon at neck level, initial encounter; S39.012A Strain of muscle, fascia and tendon of lower back, initial encounter
CPT/HCPCS: 74177; 80053; 83690; 93005; 96361; 96374; 99285; 71260; 83735; 84484; 85025; 93010; 99284; J3490

== ENCOUNTER 2022-02-11 14:07 | Outpatient (CLI) | payer MEDICARE, MEDICAID, SELFPAY ==
--- NOTE | 2022-02-11 13:45 | DI.RAD_ITS ---
Exam(s) XR SHOULDER RT COMPLETE 2+V EXAM: XR SHOULDER RT COMPLETE 2+V CLINICAL HISTORY: shoulder pain right. TECHNIQUE: 2D digital imaging was performed. Two views COMPARISON: MR MR UPPER JOINT RT WO from 12/12/2021 FINDINGS: BONES: No acute fracture is present. No bony destructive lesion is seen. JOINTS: No dislocation present. No significant spurring at AC joint. Glenohumeral joint space well maintained. SOFT TISSUE: Small calcifications seen on the axillary view projecting near the lesser tuberosity cou ld indicate calcific tendinosis. IMPRESSION: Question calcific tendinosis. DATA REPOSITORY: RADIATION DOSE DELIVERED:
== END 2022-02-11 14:08 | disposition home or self-care (01) ==
LOC: DIORS 14:07
PROVIDERS: PCP Family Medicine; Referring Provider Family Medicine; Visit Provider Student in an Organized Health Care Education/Training Program
DX: M25.511 Pain in right shoulder (principal); R93.7 Abnormal findings on diagnostic imaging of other parts of musculoskeletal system; M77.11 Lateral epicondylitis, right elbow
CPT/HCPCS: 20605; 20610; 99214; 73030; J1030

== ENCOUNTER 2022-03-13 18:11 | Outpatient (REF) | payer MEDICARE, MEDICAID, SELFPAY ==
[2022-03-13 18:27] LABS: ESR 21 mm/hr (0-20)
[2022-03-13 18:45] LABS: C-Reactive Protein 0.89 mg/dL (0.0-0.3); Creatine Kinase 29 U/L (26-192)
== END 2022-03-13 18:12 | disposition home or self-care (01) ==
LOC: NCHCN 18:11
PROVIDERS: PCP Family Medicine; Visit Provider Family Medicine
DX: E11.9 Type 2 diabetes mellitus without complications (principal); M25.511 Pain in right shoulder
CPT/HCPCS: 82550; 85652; 83036; 86140

== ENCOUNTER → 2022-03-19 08:00 | Outpatient (BNVA) | payer MEDICARE, MEDICAID, SELFPAY | PROVIDERS: PCP Family Medicine; Referring Provider Family Medicine | DX: M75.31 Calcific tendinitis of right shoulder (principal) | CPT/HCPCS: 99213 ==

== ENCOUNTER → 2022-04-08 01:07 | Outpatient (CLI) | payer MEDICARE, MEDICAID, SELFPAY ==
--- NOTE | 2022-04-08 09:15 | DI.MRI_ITS ---
Exam(s) MR CERVICAL SPINE WO EXAM: MR CERVICAL SPINE WO CLINICAL HISTORY: RT ARM PAIN, M79.601, RT SHOULDER PAIN, M25.511, PAIN FROM RT EAR TO HAND TECHNIQUE: Multiplanar multisequence MRI of the cervical spine was performed without intravenous con trast. COMPARISON: MR MR CERVICAL SPINE WO from 09/15/2019 FINDINGS: CERVICOMEDULLARY JUNCTION: Intact with no evidence of cerebellar tonsillar ectopia. No obvious abnor mality of the odontoid process. No evidence of Chiari 1 malformation. CERVICAL SPINAL CORD: There is no abnormal signal in the cervical spinal cord and no evidence of foca l cord atrophy nor focal cord swelling. OSSEOUS:There are no cervical fractures evident. No significant osseous lesions in the cervical vert ebrae. INDIVIDUAL LEVELS: C2-3: No disc herniation nor central canal stenosis. No foraminal stenosis. No facet arthropathy. C3-4: There is a central-mildly right paracentral subligamentous disc herniation at this level which extends posteriorly 2 millimeters and is approximately 5 millimeters wide. This indents the thecal s ac and contacts the spinal cord. No abnormal signal in the cord at this level. Central canal dimens ions are lower normal. There is no disc protrusion at the level of the exiting neural foramen on eit her side. There is no facet arthropathy and there is no foraminal stenosis at this level.No facet ar thropathy. No foraminal stenosis. C4-5: No disc herniation nor central canal stenosis.No facet arthropathy. No foraminal stenosis C5-6: No disc herniation or central canal stenosis. No facet arthropathy. No foraminal stenosis. C6-7: There is a significant posterolateral left disc herniation at this level which extends posterio rly 4 millimeters and is approximately 8 millimeters wide. This significantly indents the thecal sac and the spinal cord at this level. Results in mild central canal stenosis. There is no abnormal si gnal in the cord at this level. The disc herniation does not appear to extend appreciably into the e xiting neural foramen. It contacts the undersurface of the exiting nerve root at this level. There is no significant facet arthropathy at this level C7-T1: No disc herniation nor central canal stenosis. No facet arthropathy.No foraminal stenosis. IMPRESSION: 1. There disc herniations at both C6-7 level (posterolateral left) and C3-4 level (central-mildly rig ht paracentral). The larger disc herniation is at C6-7 level, as described above. 2. There is no significant foraminal stenosis. There is no facet arthropathy in the cervical spinal column. 3. No abnormal signal evident in the cervical spinal cord. Also no evidence of cord swelling nor foc al cord atrophy. DATA REPOSITORY:
--- NOTE | 2022-04-08 09:15 | DI.MRI_ITS ---
Exam(s) MR UPPER JOINT RT WO EXAM: MR UPPER JOINT RT WO CLINICAL HISTORY: RT SHOULDER PAIN, M25.511, S/P FALL IN JANUARY 2022 TECHNIQUE: Multiplanar multisequence MRI of the shoulder was performed. COMPARISON: MR MR UPPER JOINT RT WO from 12/12/2021 CR XR SHOULDER RT COMPLETE 2+V from 02/11/2022 FINDINGS: MARROW:There is no evidence of fracture, Hill-Sachs deformity, nor ominous osseous lesions. ROTATOR CUFF MECHANISM: AC JOINT/ACROMIUM: There are no obvious degenerative changes in the AC joint. Undersurface of the ac romion is flat in the acromion is not downsloping. There is no evidence of os acromiale. Supraspinatus: Is a small area of fluid signal abnormality traverses the foot pad insertional aspect supraspinatus just above the greater tuberosity and may be consistent with a small full-thickness tea r at this level. There is minimal amount of fluid in the overlying subacromial bursa region. No mus yaya atrophy. Infraspinatus: Intact. No evidence of tear nor muscle atrophy. Teres Minor: Intact. No evidence of tear nor muscle atrophy. Subscapularis/anterior cuff: Intact. No abnormal signal at the level of the multipennate insertional fibers. The fluid previously present anterior to the tendon is mostly resolved.. No significant tea r nor atrophy. ROTATOR CUFF INTERVAL: Previously present fluid in this area has significantly decreased. BICEPS TENDON: Normally position in the intertubercular groove. No evidence of tear. Minimal fluid in the sheath. LABRUM: No labral tear identified. No evidence of paralabral cyst. LABROLIGAMENTOUS/CAPSULAR COMPLEX: There is no evidence of avulsion of the anterior-inferior labrum, capsule, inferior glenohumeral liga ment complex nor disruption of the scapular periosteum to suggest the presence of a Bankart lesion. GLENOHUMERAL JOINT: No joint effusion nor obvious loose intra-articular bodies. No chondral defects. No osteophytes. No evidence of capsular tear. The inferior glenohumeral ligament is intact. QUADRILATERAL SPACE: No evidence of mass in the region of the axillary nerve and dorsal circumflex hu meral vessels. Visualized triceps muscle at this level appears unremarkable. IMPRESSION: 1. Compared to the prior MRI scan of 12/12/2021 there is a thin focus of fluid signal traversing the supraspinatus-rotator cuff insertion tendon at the foot pad insertional site, just above the greater tuberosity level. Possibly representing a tiny full-thickness tear. No retraction musculotendinous junction and no atrophy. There is a tiny amount of fluid in the subacromial bursal space. No obviou s degenerative changes nor impingement in the subacromial space 2. Other 3 muscular components of the rotator cuff mechanism appear intact and there is improvement i n the appearance of the rotator cuff interval when compared to the prior study; less fluid now eviden t). 3. No evidence of labral tears nor paralabral cyst. Biceps tendon appears intact and nondisplaced. No obvious degenerative changes in the glenohumeral joint. No prominent joint effusion. No loose in tra-articular bodies. No osteophytes evident. DATA REPOSITORY:
== END ==
PROVIDERS: PCP Family Medicine; Visit Provider Family Medicine
DX: M25.511 Pain in right shoulder (principal); M75.101 Unspecified rotator cuff tear or rupture of right shoulder, not specified as traumatic; M79.601 Pain in right arm; M50.223 Other cervical disc displacement at C6-C7 level; M50.21 Other cervical disc displacement, high cervical region
CPT/HCPCS: 72141; 73221

== ENCOUNTER → 2022-04-16 08:51 | Outpatient (BNVA) | payer MEDICARE, MEDICAID, SELFPAY | PROVIDERS: PCP Family Medicine; Referring Provider Family Medicine; Visit Provider Student in an Organized Health Care Education/Training Program | DX: W19.XXXA Unspecified fall, initial encounter (principal); S46.011A Strain of muscle(s) and tendon(s) of the rotator cuff of right shoulder, initial encounter; M75.31 Calcific tendinitis of right shoulder; M75.51 Bursitis of right shoulder; M75.21 Bicipital tendinitis, right shoulder; M79.18 Myalgia, other site | CPT/HCPCS: 99213 ==

== ENCOUNTER → 2022-04-17 13:58 | Outpatient (BNVA) | payer MEDICARE, MEDICAID, SELFPAY | PROVIDERS: PCP Family Medicine; Referring Provider Student in an Organized Health Care Education/Training Program; Visit Provider Nurse Practitioner Adult Health | DX: G56.03 Carpal tunnel syndrome, bilateral upper limbs (principal) | CPT/HCPCS: 95886; 95911; 99203; 99213 ==

== ENCOUNTER → 2022-04-28 10:15 | Outpatient (BNVA) | payer MEDICARE, MEDICAID, SELFPAY | PROVIDERS: PCP Family Medicine; Referring Provider Family Medicine; Visit Provider Student in an Organized Health Care Education/Training Program | DX: G56.03 Carpal tunnel syndrome, bilateral upper limbs (principal) | CPT/HCPCS: 99213 ==

== ENCOUNTER 2022-05-04 10:17 | Emergency (ER) | payer MEDICARE, MEDICAID, SELFPAY ==
[2022-05-04 10:21] VITALS: BP 126/82; PULSE 90; RESP 16; TEMP 36.1; O2SAT 98
--- NOTE | 2022-05-04 10:39 | ED.GENADUL_ITS ---
Discharge Plan Disposition Patient Disposition: HOME Condition: Stable Discharge Details Clinical Impression: Urinary tract infection Primary Care Provider: Edie Ellis ED Provider: Taurus Ricardo Home Meds and New Rx's Prescriptions: New ciprofloxacin HCl 500 mg tablet 500 mg PO BID Qty: 14 0RF phenazopyridine [Pyridium] 200 mg tablet 200 mg PO TID PRNQty: 9 0RF Continued metoprolol succinate 50 mg tablet extended release 24 hr 50 mg PO DAILY Qty: 30 11RF fexofenadine [Allergy Relief (fexofenadine)] 180 mg tablet 180 mg PO DAILY naproxen 250 mg tablet 250 mg PO BID PRN vitamin S34-mocgn acid 1 EACH tablet 1 ea PO DAILY Label Comments: 1000 mcg nicotine 7 mg/24 hr patch 24 hour 1 patch transdermal Q24H cholecalciferol (vitamin D3) 50 mcg (2,000 unit) capsule 50 mcg PO DAILY hydromorphone [Dilaudid] 2 mg tablet 2 mg PO BID metformin 500 mg tablet extended release 24 hr 1,000 mg PO BID Trulicity 1.5 mg/0.5 mL pen injector 3 mg subcut QWEEK losartan 25 mg tablet 25 mg PO DAILY rosuvastatin [Crestor] 5 MG tablet 10 mg PO QPM naratriptan 2.5 mg tablet 2.5 mg PO BID PRN riboflavin (vitamin B2) [Vitamin B-2] 50 MG tablet 200 mg PO BID pregabalin [Lyrica] 75 MG capsule 100 mg PO TID Label Comments: 100 mg am, 100 mg 2 pm, 100 mg at HS polyethylene glycol 3350 17 gram/dose Powder 17 g PO DAILY PRN paroxetine HCl 20 mg tablet 40 mg PO DAILY levothyroxine [Synthroid] 25 MCG tablet 50 mcg PO HS magnesium oxide 400 MG tablet 800 mg PO BID omeprazole 20 mg Capsule,Delayed Release(Dr/Ec) 20 mg PO DAILY prochlorperazine maleate 10 mg Tablet 10 mg PO DAILY PRN (Reason: Headache) albuterol sulfate [Ventolin HFA] 90 mcg/actuation Hfa Aerosol Inhaler 2 puff INHALATION QID PRN naloxone [Narcan] 4 mg/actuation [place],Non-Aerosol 1 spray INTRANASAL ONCE PRN Label Comments: Never used. valacyclovir 1 gram tablet 500 mg PO QHS lamotrigine 100 mg Tablet Extended Release 24hr 100 mg PO HS aspirin 81 mg tablet,delayed release (DR/EC) 81 mg PO DAILY Qty: 14 0RF Rx Instructions: Take 1 daily with a meal for 30 days estradiol 1 mg tablet 1 mg PO BID Label Comments: TAKE 1 TABLET BY MOUTH EVERY MORNING THEN 2 TABLETS EVERY EVENING hydrocortisone 2.5 % cream 1 applic topical QID Qty: 30 6RF Discharge Instructions Instructions: Urinary Tract Infection in Women (ED) Additional Instructions: drink fluids to stay hydrated if you still have symptoms in a week follow up with your primary care provider if you feel more ill, have severe worsening pain or fevers return to the emergency department Medical Decision Making 46 yo female comes in with complaints of pain with urination. She states for 2 days when she tries to urinate she has a sharp stabbing pain in the suprapubic area and sometimes will radiate to her back. She Denies pain when she is not urinating. She denies fevers, chest pain, dyspnea. She arrives stable and appears well. HAs no cva tenderness on exam or abdominal tenderness. Her symptoms seem like cystitis and unlikely kidney stone and unlikely pyelo given no fevers or cva tenderness. Will obtain ua and reassess. ua consistent with uti, has hematuria, leukocytes and bacteria. Will start her on cipro and advised to f/u with pcp and return precautions given Differential Diagnosis Differential Diagnosis: cystitis, bladder spasm, kidney stone Medical Records Medical records reviewed: Yes I reviewed the patient's medical records. Lab Data Lab results reviewed: Yes I reviewed the patient's lab results. HPI General Mode of arrival: ambulatory . Date/Time Provider Initiated Documentation: 05/04/22 10:23 . Limitations to Documentation: no limitations . Information obtained by: patient . History of Present Illness 46 year old F presents to the emergency department with the chief complaint of pain with urination, described as moderate, Patient started experiencing this day(s) (2) and it has been intermittent. No relieving factors improve symptom(s), No exacerbating factors reported . Patient notes denies fever/chills and nausea/vomiting. Patient did receive the following treatments prior to arrival, none Related Data Home Medications Medication Instructions Recorded Confirmed rosuvastatin 5 mg tablet (Crestor) 10 mg PO QPM 06/28/13 05/04/22 riboflavin (vitamin B2) 50 mg 200 mg PO BID 03/13/15 05/04/22 tablet (Vitamin B-2) levothyroxine 25 mcg tablet 50 mcg PO HS 03/05/17 05/04/22 (Synthroid) magnesium oxide 400 mg (241.3 mg 800 mg PO BID 03/05/17 05/04/22 magnesium) tablet pregabalin 75 mg capsule (Lyrica) 100 mg PO TID 03/06/17 05/04/22 vitamin B12 500 mcg-folic acid 400 1 ea PO DAILY 03/11/17 05/04/22 mcg tablet albuterol sulfate 90 mcg/actuation 2 puff inhalation QID PRN 03/10/19 05/04/22 aerosol inhaler (Ventolin HFA) naloxone 4 mg/actuation nasal 1 spray intranasal ONCE PRN 03/10/19 05/04/22 spray (Narcan) omeprazole 20 mg capsule,delayed 20 mg PO DAILY 03/10/19 05/04/22 release prochlorperazine maleate 10 mg 10 mg PO DAILY PRN Headache 03/10/19 05/04/22 tablet metoprolol succinate 50 mg 50 mg PO DAILY #30 tabs 03/21/19 05/04/22 tablet,extended release 24 hr valacyclovir 1 gram tablet 500 mg PO QHS 03/21/19 05/04/22 lamotrigine 100 mg tablet,extended 100 mg PO HS 09/28/19 05/04/22 release 24 hr aspirin 81 mg tablet,delayed 81 mg PO DAILY Prevent blood clot 09/30/19 05/04/22 release #14 tabs polyethylene glycol 3350 17 17 g PO DAILY PRN 12/22/19 05/04/22 gram/dose oral powder naratriptan 2.5 mg tablet 2.5 mg PO BID PRN 03/27/20 05/04/22 paroxetine HCl 20 mg tablet 40 mg PO DAILY 03/27/20 05/04/22 estradiol 1 mg tablet 1 mg PO BID 06/10/21 05/04/22 cholecalciferol (vitamin D3) 50 50 mcg PO DAILY 11/21/21 05/04/22 mcg (2,000 unit) capsule hydromorphone 2 mg tablet 2 mg PO BID 11/21/21 05/04/22 (Dilaudid) metformin 500 mg tablet,extended 1,000 mg PO BID 11/21/21 05/04/22 release 24 hr nicotine 7 mg/24 hr daily 1 patch transdermal Q24H 11/21/21 05/04/22 transdermal patch dulaglutide 1.5 mg/0.5 mL 3 mg subcut QWEEK 12/18/21 05/04/22 subcutaneous pen injector (Trulicity) losartan 25 mg tablet 25 mg PO DAILY 12/18/21 05/04/22 hydrocortisone 2.5 % topical cream 1 applic topical QID #30 grams 12/31/21 05/04/22 naproxen 250 mg tablet 250 mg PO BID PRN 04/16/22 05/04/22 fexofenadine 180 mg tablet 180 mg PO DAILY 04/28/22 05/04/22 (Allergy Relief (fexofenadine)) ciprofloxacin HCl 500 mg tablet 500 mg PO BID #14 tabs 05/04/22 phenazopyridine 200 mg tablet 200 mg PO TID PRN 6 doses #9 tabs 05/04/22 (Pyridium) Previous Rx's Medication Instructions Recorded metoprolol succinate 50 mg 50 mg PO DAILY #30 tabs 03/21/19 tablet,extended release 24 hr aspirin 81 mg tablet,delayed 81 mg PO DAILY Prevent blood clot 09/30/19 release #14 tabs hydrocortisone 2.5 % topical cream 1 applic topical QID #30 grams 12/31/21 ciprofloxacin HCl 500 mg tablet 500 mg PO BID #14 tabs 05/04/22 phenazopyridine 200 mg tablet 200 mg PO TID PRN 6 doses #9 tabs 05/04/22 (Pyridium) Allergies Allergy/AdvReac Type Severity Reaction Status Date / Time Penicillins Allergy Severe throat Verified 05/04/22 10:25 closes Sulfa (Sulfonamide Allergy Mild Hives Verified 05/04/22 10:25 Antibiotics) lactose AdvReac Diarrhea Verified 05/04/22 10:25 General Stated Complaint: Urinary RENATO: 4 Review of Systems All systems reviewed & are unremarkable except as noted in HPI and below Constitutional Constitutional: Denies fever(s) and Denies weakness Cardiovascular Cardiovascular: Denies chest pain and Denies dyspnea Respiratory Respiratory: Denies dyspnea Gastrointestinal Gastrointestinal: Denies abdominal pain, Denies nausea and Denies vomiting Musculoskeletal Musculoskeletal: Denies joint swelling Integumentary/Breasts Skin/Breast: Denies rash Neurologic Neurologic: Denies weakness PFSH All Active Problems (Updated 05/04/22 @ 11:12 by Taurus Ricardo MD) Urinary tract infection (Acute) Bilateral carpal tunnel syndrome (Acute) Amplified musculoskeletal pain (Acute) Tendonitis of long head of biceps brachii of right shoulder (Acute) Bursitis of right shoulder (Acute) Traumatic tear of right rotator cuff (Acute) Calcific tendinitis of right shoulder (Acute) 40mg depo-medrol injection: 02/11/2022 Lateral epicondylitis of right elbow (Acute) 40mg depo-medrol injection: 02/11/2022 Hematest positive stools (Acute) CAD (coronary artery disease) (Chronic) mild non-obstructive disease per cardiac cath report from [facility] 09/07/2013 Cardiomyopathy (Chronic) last echocardiogram 01/27/2019, LVEF 50-55%, no regional wall motion abnormalities, mild LVH, mild MR; normal RV size and function Bipolar disorder (Chronic) 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 (Acute 01/25/14) Atypical chest pain (Acute) Type 2 diabetes mellitus (Acute) DVT prophylaxis (Acute) Palpitations (Acute) Spell of altered consciousness (Acute) Elevated brain natriuretic peptide (BNP) level (Acute) Chest pain (Acute) Screening for colon cancer (Acute) Tobacco use (Acute) Fecal occult blood test positive (Acute) Medical History Acute kidney injury Anxiety 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 (01/25/14) Bursitis of left shoulder (~03/2019) Carpal tunnel syndrome, left Cervical radiculopathy bilateral Change in mental status Chronic migraine (03/07/15) Chronic pain syndrome Dehydration Depression Diabetes Discharge planning issues Dizziness, nonspecific Dyspnea Elbow fracture, right Fatigue Hyperlipidemia Hyperthyroidism Impingement syndrome of left shoulder (~03/2019) Lactose intolerance Left rotator cuff tear (~03/2019) Medication overuse headache (03/07/15) Migraine headache with aura (03/07/15) Migraine headache without aura (03/07/15) Morbid obesity Orthostasis Polycystic ovaries Shortness of breath Splenomegaly Suicidal ideation Tachycardia Tendinitis of long head of biceps brachii of left shoulder (~03/2019) Unresponsive episode Surgical History History of arthroscopy of left shoulder History of section x2 History of endometrial ablation Hx of cardiac catheterization 08/2021-no stent placed Previous back surgery S/P hysterectomy Social History Smoking/Tobacco Use Status: Current every day Tobacco Type: cigarettes Quit status: quit date established Smoking risk assessment performed?: Yes Alcohol Intake: never Drug use: Never Substance use type: does not use Number of Children: 3 Current gender identity: female What is your relationship status?: Panel score (0-1 are the most socially isolated patients): 0 What type of physical activity do you participate in: none Do you feel safe at home: Yes Do you feel safe in your relationship?: Yes Exam Const General: no acute distress Orientation: alert HENMT Head: normal to inspection Ears: external ears normal General nose exam: external nose normal Mouth: moist mucous membranes Eyes General: appearance normal, both eyes and all related structures Neck Neck: normal visual inspection Resp Effort & Inspection: normal respiratory effort and able to speak in complete sentences Cardio Rate: regular rate GI Palpation: soft and nontender General: No CVA tenderness Skin General skin exam: no rashes or lesions noted Neuro General: patient alert and patient oriented x3 Extrem General: normal to inspection Psych Mental Status: mental status grossly normal Course Vital Signs Vital signs: Vital Signs Temperature 36.1 C L 05/04/22 10:21 Pulse 90 05/04/22 10:21 Respiratory Rate 16 05/04/22 10:21 Blood Pressure 126/82 05/04/22 10:21 Pulse Oximetry 98 05/04/22 10:21 Temperature 36.1 C L 05/04/22 10:21 Temperature Source Temporal Artery Scan 05/04/22 10:21 Pulse 90 05/04/22 10:21 Respiratory Rate 16 05/04/22 10:21 Respiratory Effort 05/04/22 10:26 Blood Pressure 126/82 05/04/22 10:21 Pulse Oximetry 98 05/04/22 10:21 Oxygen Delivery Method Room Air 05/04/22 10:21 Oxygen Flow Rate 0 05/04/22 10:21 Pain Level 10 05/04/22 10:21
[2022-05-04 10:50] LABS: Bilirubin Small (Negative); Blood Moderate (Negative); Clarity Cloudy (Clear); Glucose 100 mg/dL (Negative); Ketones 15 mg/dL (Negative); Leukocyte Esterase Small (Negative); Nitrite Negative (Negative); Specific Gravity >= 1.030 (1.005-1.025); pH 5.5 (5-8)
[2022-05-04 10:59] LABS: RBC >50 HPF (0-2)
[2022-05-04 11:01] LABS: C & S Indicated? Yes
== END 2022-05-04 11:21 | disposition home or self-care (01) ==
PROVIDERS: Emergency Provider Emergency Medicine; PCP Family Medicine
DX: N39.0 Urinary tract infection, site not specified (principal); E11.9 Type 2 diabetes mellitus without complications
CPT/HCPCS: 99283; 81003; 81015; 87086

== ENCOUNTER → 2022-05-05 14:11 | Outpatient (BNVA) | payer MEDICARE, MEDICAID, SELFPAY | PROVIDERS: PCP Family Medicine; Visit Provider Internal Medicine Cardiovascular Disease | DX: I25.10 Atherosclerotic heart disease of native coronary artery without angina pectoris (principal); I42.0 Dilated cardiomyopathy; O90.3 Peripartum cardiomyopathy | CPT/HCPCS: 99214; 99213 ==

== ENCOUNTER 2022-05-13 07:53 | Day surgery (SDC) | payer MEDICARE, MEDICAID, SELFPAY ==
--- NOTE | 2022-05-13 07:32 | PDOC.DSDIS_ITS ---
Discharge Plan Disposition Patient Disposition: HOME Condition: Good Discharge Details Reason For Visit: Right ECTR Attending Provider: Car Willoughby Primary Care Provider: Edie Ellis Home Meds and New Rx's Prescriptions: New acetaminophen 500 mg capsule 1,000 mg PO Q8H PRN PRNQty: 30 0RF ibuprofen 600 mg tablet 600 mg PO TID Qty: 30 0RF hydromorphone 2 mg tablet 2 - 4 mg PO Q6H PRN (Reason: pain) Qty: 20 0RF Continued metoprolol succinate 50 mg tablet extended release 24 hr 50 mg PO DAILY Qty: 30 11RF naproxen 250 mg tablet 250 mg PO BID PRN vitamin Q71-lsbks acid 1 EACH tablet 1 ea PO DAILY Label Comments: 1000 mcg nicotine 7 mg/24 hr patch 24 hour 1 patch transdermal Q24H cholecalciferol (vitamin D3) 50 mcg (2,000 unit) capsule 50 mcg PO DAILY hydromorphone [Dilaudid] 2 mg tablet 2 mg PO BID metformin 500 mg tablet extended release 24 hr 1,000 mg PO BID Trulicity 1.5 mg/0.5 mL pen injector 3 mg subcut QWEEK losartan 25 mg tablet 25 mg PO DAILY rosuvastatin [Crestor] 5 MG tablet 10 mg PO QPM naratriptan 2.5 mg tablet 2.5 mg PO BID PRN riboflavin (vitamin B2) [Vitamin B-2] 50 MG tablet 200 mg PO BID pregabalin [Lyrica] 75 MG capsule 100 mg PO TID Label Comments: 100 mg am, 100 mg 2 pm, 100 mg at HS polyethylene glycol 3350 17 gram/dose Powder 17 g PO DAILY PRN paroxetine HCl 20 mg tablet 40 mg PO DAILY levothyroxine [Synthroid] 25 MCG tablet 50 mcg PO HS magnesium oxide 400 MG tablet 800 mg PO BID omeprazole 20 mg Capsule,Delayed Release(Dr/Ec) 20 mg PO DAILY prochlorperazine maleate 10 mg Tablet 10 mg PO DAILY PRN (Reason: Headache) albuterol sulfate [Ventolin HFA] 90 mcg/actuation Hfa Aerosol Inhaler 2 puff INHALATION QID PRN naloxone [Narcan] 4 mg/actuation [place],Non-Aerosol 1 spray INTRANASAL ONCE PRN Label Comments: Never used. valacyclovir 1 gram tablet 500 mg PO QHS lamotrigine 100 mg Tablet Extended Release 24hr 100 mg PO HS aspirin 81 mg tablet,delayed release (DR/EC) 81 mg PO DAILY Qty: 14 0RF Rx Instructions: Take 1 daily with a meal for 30 days estradiol 1 mg tablet 1 mg PO BID Label Comments: TAKE 1 TABLET BY MOUTH EVERY MORNING THEN 2 TABLETS EVERY EVENING hydrocortisone 2.5 % cream 1 applic topical QID Qty: 30 6RF Discharge Instructions Stand Alone Forms: Anesthesia Discharge Inst., Fartun Patterson Tunnel Release, Reena Canas ([facility]U) Referrals: Car Willoughby MD [ [facility] STAFF PHYSICIAN] - Activity:: Activity as Tolerated Remove Dressings/Wound Care:: 72 hours Shower/Bathe:: 72 hours Diet:: As Tolerated Discharge Orders Discharge Orders: Discharge Order (Routine); Ordered 05/13/22 Ordered By: Leticia Soares DS: Diagnosis Discharge Diagnosis (1) Bilateral carpal tunnel syndrome: Status: Acute
[2022-05-13 07:57] VITALS: BP 112/80; PULSE 88; RESP 16; TEMP 36.2; O2SAT 94
--- NOTE | 2022-05-13 08:43 | W.ANESPRE ---
General Info Date of Service Date Performed: 05/13/22 Height: 5 ft 4 in Weight: 98.8 kg Body Mass Index (BMI): 37.3 Surgical Procedure: Operation Date: 05/13/22 09:55 Proposed Procedure Side Surgeon p Wrist ECTR Right Car Willoughby MD Meds Allergies and Home Medications Allergies Allergy/AdvReac Type Severity Reaction Status Date / Time Penicillins Allergy Severe throat Verified 05/13/22 08:20 closes Sulfa (Sulfonamide Allergy Mild Hives Verified 05/13/22 08:20 Antibiotics) lactose AdvReac Diarrhea Verified 05/13/22 08:20 Home Medication Medication Instructions Recorded rosuvastatin 5 mg tablet (Crestor) 10 mg PO QPM 06/28/13 riboflavin (vitamin B2) 50 mg 200 mg PO BID 03/13/15 tablet (Vitamin B-2) levothyroxine 25 mcg tablet 50 mcg PO HS 03/05/17 (Synthroid) magnesium oxide 400 mg (241.3 mg 800 mg PO BID 03/05/17 magnesium) tablet pregabalin 75 mg capsule (Lyrica) 100 mg PO TID 03/06/17 vitamin B12 500 mcg-folic acid 400 1 ea PO DAILY 03/11/17 mcg tablet albuterol sulfate 90 mcg/actuation 2 puff inhalation QID PRN 03/10/19 aerosol inhaler (Ventolin HFA) naloxone 4 mg/actuation nasal 1 spray intranasal ONCE PRN 03/10/19 spray (Narcan) omeprazole 20 mg capsule,delayed 20 mg PO DAILY 03/10/19 release prochlorperazine maleate 10 mg 10 mg PO DAILY PRN Headache 03/10/19 tablet metoprolol succinate 50 mg 50 mg PO DAILY #30 tabs 03/21/19 tablet,extended release 24 hr valacyclovir 1 gram tablet 500 mg PO QHS 03/21/19 lamotrigine 100 mg tablet,extended 100 mg PO HS 09/28/19 release 24 hr aspirin 81 mg tablet,delayed 81 mg PO DAILY Prevent blood clot 09/30/19 release #14 tabs polyethylene glycol 3350 17 17 g PO DAILY PRN 12/22/19 gram/dose oral powder naratriptan 2.5 mg tablet 2.5 mg PO BID PRN 03/27/20 paroxetine HCl 20 mg tablet 40 mg PO DAILY 03/27/20 estradiol 1 mg tablet 1 mg PO BID 06/10/21 cholecalciferol (vitamin D3) 50 50 mcg PO DAILY 11/21/21 mcg (2,000 unit) capsule hydromorphone 2 mg tablet 2 mg PO BID 11/21/21 (Dilaudid) metformin 500 mg tablet,extended 1,000 mg PO BID 11/21/21 release 24 hr nicotine 7 mg/24 hr daily 1 patch transdermal Q24H 11/21/21 transdermal patch dulaglutide 1.5 mg/0.5 mL 3 mg subcut QWEEK 12/18/21 subcutaneous pen injector (Trulicity) losartan 25 mg tablet 25 mg PO DAILY 12/18/21 hydrocortisone 2.5 % topical cream 1 applic topical QID #30 grams 12/31/21 naproxen 250 mg tablet 250 mg PO BID PRN 04/16/22 acetaminophen 500 mg capsule 1,000 mg PO Q8H PRN PRN #30 caps 05/13/22 hydrocodone 5 mg-acetaminophen 325 1 tab PO Q6H PRN #5 tabs 05/13/22 mg tablet ibuprofen 600 mg tablet 600 mg PO TID #30 tabs 05/13/22 Current Visit Medications: Current Medications Generic Name Dose Route Start Last Admin Trade Name Freq PRN Reason Stop Dose Admin Acetaminophen 650 mg 05/13/22 07:30 Acetaminophen 325 Mg Tab PO Q4H PRN PRN Ringer's Solution 1,000 mls @ 80 mls/hr 05/13/22 06:00 IV 06/11/22 23:59 INFUSION URSULA Clindamycin Phosphate/Dextrose 900 mg in 50 mls @ 50 mls/hr 05/13/22 06:00 Cleocin In D5w IVPB 05/13/22 16:00 PREOP URSULA Ondansetron HCl 4 mg/ Sodium 52 mls @ 200 mls/hr 05/13/22 07:30 Chloride IVPB Q6H PRN PRN IV Miscellaneous Supplies 1 each 05/13/22 06:00 Iv Access IV 06/11/22 23:59 DIRECTED URSULA Oxycodone HCl 5 mg 05/13/22 07:30 Oxycodone 5 Mg Tab PO Q3H PRN PRN Pain Sodium Chloride 0 ml 05/13/22 06:00 Normal Saline Flush 10 Ml Syr IV 06/11/22 23:59 PRN PRN Sodium Chloride 0 ml 05/13/22 06:00 Normal Saline 10 Ml Vial IJ 06/11/22 23:59 DIRECTED PRN Sterile Water 0 ml 05/13/22 06:00 Water,Injection,Sterile 10 Ml Vial IJ 06/11/22 23:59 DIRECTED PRN PFSH Active Problems Active Problems: Problem Status Onset Code Urinary tract infection N39.0 Bilateral carpal tunnel syndrome G56.03 Amplified musculoskeletal pain M79.18 Tendonitis of long head of biceps brachii of right shoulder M75.21 Bursitis of right shoulder M75.51 Traumatic tear of right rotator cuff S46.011A Calcific tendinitis of right shoulder M75.31 Lateral epicondylitis of right elbow M77.11 Hematest positive stools R19.5 CAD (coronary artery disease) Cardiomyopathy Bipolar disorder F31.9 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 01/25/14 O90.3, I42.0 Atypical chest pain R07.89 Type 2 diabetes mellitus E11.9 DVT prophylaxis Palpitations R00.2 Spell of altered consciousness R40.4 Elevated brain natriuretic peptide (BNP) level R79.89 Chest pain R07.9 Screening for colon cancer Z12.11 Tobacco use Z72.0 Fecal occult blood test positive R19.5 Medical History Medical History Acute kidney injury Anxiety 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 (01/25/14) Bursitis of left shoulder (~03/2019) Carpal tunnel syndrome, left Cervical radiculopathy bilateral Change in mental status Chronic migraine (03/07/15) Chronic pain syndrome Dehydration Depression Diabetes Discharge planning issues Dizziness, nonspecific Dyspnea Elbow fracture, right Fatigue Hyperlipidemia Hyperthyroidism Impingement syndrome of left shoulder (~03/2019) Lactose intolerance Left rotator cuff tear (~03/2019) Medication overuse headache (03/07/15) Migraine headache with aura (03/07/15) Migraine headache without aura (03/07/15) Morbid obesity Orthostasis Polycystic ovaries Shortness of breath Splenomegaly Suicidal ideation Tachycardia Tendinitis of long head of biceps brachii of left shoulder (~03/2019) Unresponsive episode Surgical History Surgical History History of arthroscopy of left shoulder History of section x2 History of endometrial ablation Hx of cardiac catheterization 08/2021-no stent placed Previous back surgery S/P hysterectomy Tobacco Smoking/Tobacco Use Status: Current every day Tobacco Type: cigarettes Smoking cigarettes per day: 3 Alcohol Alcohol Intake: never Substance Use Substance use: Never Substance use type: does not use Vital Signs and Lab Results Vital Signs Most Recent Vital Signs in EMR: Most Recent Vital Signs Temp Pulse Resp BP Pulse Ox 36.2 C L 88 16 112/80 94 05/13/22 07:57 05/13/22 07:57 05/13/22 07:57 05/13/22 07:57 05/13/22 07:57 Point of Care Results Point of Care Results: Finger Stick Blood Glucose 151 05/13/22 08:30 Lab Results Blood Type / Crossmatch: No Data to Display Complete Blood Count: No Data to Display Complete Metabolic Panel: No Data to Display Liver Function Panel: No Data to Display Coagulation Panel: No Data to Display Cardiac Panel: No Data to Display Arterial Blood Gas: No Data to Display Venous Blood Gas: No Data to Display Pancreas Panel: No Data to Display Thyroid Panel: No Data to Display Infectious Disease: No Data to Display Blood Cultures: No Data to Display Toxicology Panel: No Data to Display Panel: No Data to Display Imaging and Studies Imaging and Studies Study information below may be from another EMR and interpreted by another provider. Please see original notes in EMR for more complete details. EKG Summary: Conclusion Sinus rhythm...normal P axis, V-rate 60- 99 Low voltage, precordial leads...precordial leads <1.0mV. Sinus. No STEMI. I have reviewed and interpreted ECG and agree with software generated interpretation. 08/07/21 Echocardiogram Summary: Conclusion Normal left ventricular wall thickness and chamber size. Systolic function is borderline. Estimated ejection fraction is 50 to 55% with mild global hypokinesis Normal right ventricular size and systolic function Both atria are normal in size There are no significant structural valvular abnormalities or hemodynamically significant valvular findings 09/19/20 Cardiac Catheterization Summary: 09/06/21: Cardiac Cath Anesthesia Assessment and Plan Anesthesia History Personal History: No History of Anesthesia Complications Family History: No Family History of Anesthesia Complications Exercise Tolerance Exercise Tolerance: Metabolic Equivalents>4 Cardiac & Pulmonary Exam Cardiac Exam: Normal S1/S2 Heart Sounds Pulmonary Exam: Clear Bilateral Breath Sounds Implantable Cardiac Device Does patient have a Pacemaker or an ICD?: No Airway Exam Known Difficult Airway: No Mallampati Class: 1 Mouth Opening: Normal (> 3cm) Thyromental Distance: Greater than 3 cm Neck Range of Motion: Full ROM Neck Circumference: Normal Teeth Condition: Normal Dentition ASA Classification ASA Score: ASA 3 Emergency Case?: No NPO Status NPO Status: NPO Clears >2 hours, Solids >8 hours Status Status: History of Hysterectomy Anesthesia Plan Resuscitation Status: Full Code Anesthesia Technique: General Anesthesia Airway Planned: Natural Airway Monitors Used: Standard Monitors
[2022-05-13 08:48] VITALS: BMI 37.3
[2022-05-13] MEDS: Lactated Ringers 1,000 ML 80 ML IV (08:50)
[2022-05-13] MEDS: CLINDAMYCIN 900 MG/50 ML BAG 50 MG IVPB (09:08)
--- NOTE | 2022-05-13 09:20 | HPE_ITS ---
Assessment and Plan Assessment and plan (1) Bilateral carpal tunnel syndrome: Status: Acute Assessment and plan: Jammie is a 46-year-old with bilateral carpal tunnel syndrome. She has significantly more symptoms on the right side. Please Complete Detailed History but She Is Here Today for Carpal Tunnel Release. I discussed the technical details of carpal tunnel release and that I perform an endoscopic release, but would make a larger, open, incision if necessary for visualization. I discussed the risks of the procedure to include, but not limited to, bleeding, infection, palmar pain, stiffness, damage to nerves, damage to vessels, damage to tendons, weakness, recurrence, and incomplete release. Given these risks, Jammie desires to proceed. History of Present Illness History of Present Illness Chief Complaint: Bilateral Carpal tunnel Syndrome Narrative: Jammie is a 46-year-old has bilateral carpal tunnel syndrome, worse on the right. Please see the previous office note for complete detailed history. She has confirmed carpal tunnel syndrome and is here today for right endoscopic carpal tunnel release with potential left carpal tunnel release in the future. Review of Systems All systems reviewed & are unremarkable except as noted in HPI and below PFSH All Active Problems Urinary tract infection (Acute) Bilateral carpal tunnel syndrome (Acute) Amplified musculoskeletal pain (Acute) Tendonitis of long head of biceps brachii of right shoulder (Acute) Bursitis of right shoulder (Acute) Traumatic tear of right rotator cuff (Acute) Calcific tendinitis of right shoulder (Acute) 40mg depo-medrol injection: 02/11/2022 Lateral epicondylitis of right elbow (Acute) 40mg depo-medrol injection: 02/11/2022 Hematest positive stools (Acute) CAD (coronary artery disease) (Chronic) mild non-obstructive disease [place] [facility] [place] Cardiomyopathy (Chronic) last echocardiogram 01/27/2019, LVEF 50-55%, no regional wall motion abnormalities, mild LVH, mild MR; normal RV size and function Bipolar disorder (Chronic) 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 (Acute 01/25/14) Atypical chest pain (Acute) Type 2 diabetes mellitus (Acute) DVT prophylaxis (Acute) Palpitations (Acute) Spell of altered consciousness (Acute) Elevated brain natriuretic peptide (BNP) level (Acute) Chest pain (Acute) Screening for colon cancer (Acute) Tobacco use (Acute) Fecal occult blood test positive (Acute) Medical History Acute kidney injury Anxiety 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 (01/25/14) Bursitis of left shoulder (~03/2019) Carpal tunnel syndrome, left Cervical radiculopathy bilateral Change in mental status Chronic migraine (03/07/15) Chronic pain syndrome Dehydration Depression Diabetes Discharge planning issues Dizziness, nonspecific Dyspnea Elbow fracture, right Fatigue Hyperlipidemia Hyperthyroidism Impingement syndrome of left shoulder (~03/2019) Lactose intolerance Left rotator cuff tear (~03/2019) Medication overuse headache (03/07/15) Migraine headache with aura (03/07/15) Migraine headache without aura (03/07/15) Morbid obesity Orthostasis Polycystic ovaries Shortness of breath Splenomegaly Suicidal ideation Tachycardia Tendinitis of long head of biceps brachii of left shoulder (~03/2019) Unresponsive episode Surgical History History of arthroscopy of left shoulder History of section x2 History of endometrial ablation Hx of cardiac catheterization 08/2021-no stent placed Previous back surgery S/P hysterectomy Social History Smoking/Tobacco Use Status: Current every day Tobacco Type: cigarettes Quit status: quit date established Smoking risk assessment performed?: Yes Alcohol Intake: never Drug use: Never Substance use type: does not use Number of Children: 3 Current gender identity: female What is your relationship status?: Panel score (0-1 are the most socially isolated patients): 0 What type of physical activity do you participate in: none Do you feel safe at home: Yes Do you feel safe in your relationship?: Yes Meds Allergies and Home Medications Allergies Allergy/AdvReac Type Severity Reaction Status Date / Time Penicillins Allergy Severe throat Verified 05/13/22 09:14 closes Sulfa (Sulfonamide Allergy Mild Hives Verified 05/13/22 09:14 Antibiotics) lactose AdvReac Diarrhea Verified 05/13/22 09:14 Home Medications Medication Instructions Recorded Confirmed Type rosuvastatin 5 mg tablet (Crestor) 10 mg PO QPM 06/28/13 05/13/22 History riboflavin (vitamin B2) 50 mg 200 mg PO BID 03/13/15 05/13/22 History tablet (Vitamin B-2) levothyroxine 25 mcg tablet 50 mcg PO HS 03/05/17 05/13/22 History (Synthroid) magnesium oxide 400 mg (241.3 mg 800 mg PO BID 03/05/17 05/13/22 History magnesium) tablet pregabalin 75 mg capsule (Lyrica) 100 mg PO TID 03/06/17 05/13/22 History vitamin B12 500 mcg-folic acid 400 1 ea PO DAILY 03/11/17 05/13/22 History mcg tablet albuterol sulfate 90 mcg/actuation 2 puff inhalation QID PRN 03/10/19 05/13/22 History aerosol inhaler (Ventolin HFA) naloxone 4 mg/actuation nasal 1 spray intranasal ONCE PRN 03/10/19 05/13/22 History spray (Narcan) omeprazole 20 mg capsule,delayed 20 mg PO DAILY 03/10/19 05/13/22 History release prochlorperazine maleate 10 mg 10 mg PO DAILY PRN Headache 03/10/19 05/13/22 History tablet metoprolol succinate 50 mg 50 mg PO DAILY #30 tabs 03/21/19 05/13/22 Rx tablet,extended release 24 hr valacyclovir 1 gram tablet 500 mg PO QHS 03/21/19 05/13/22 History lamotrigine 100 mg tablet,extended 100 mg PO HS 09/28/19 05/13/22 History release 24 hr aspirin 81 mg tablet,delayed 81 mg PO DAILY Prevent blood clot 09/30/19 05/13/22 Rx release #14 tabs polyethylene glycol 3350 17 17 g PO DAILY PRN 12/22/19 05/13/22 History gram/dose oral powder naratriptan 2.5 mg tablet 2.5 mg PO BID PRN 03/27/20 05/13/22 History paroxetine HCl 20 mg tablet 40 mg PO DAILY 03/27/20 05/13/22 History estradiol 1 mg tablet 1 mg PO BID 06/10/21 05/13/22 History cholecalciferol (vitamin D3) 50 50 mcg PO DAILY 11/21/21 05/13/22 History mcg (2,000 unit) capsule hydromorphone 2 mg tablet 2 mg PO BID 11/21/21 05/13/22 History (Dilaudid) metformin 500 mg tablet,extended 1,000 mg PO BID 11/21/21 05/13/22 History release 24 hr nicotine 7 mg/24 hr daily 1 patch transdermal Q24H 11/21/21 05/13/22 History transdermal patch dulaglutide 1.5 mg/0.5 mL 3 mg subcut QWEEK 12/18/21 05/13/22 History subcutaneous pen injector (Trulicity) losartan 25 mg tablet 25 mg PO DAILY 12/18/21 05/13/22 History hydrocortisone 2.5 % topical cream 1 applic topical QID #30 grams 12/31/21 0 05/13/22 Rx naproxen 250 mg tablet 250 mg PO BID PRN 04/16/22 05/13/22 History acetaminophen 500 mg capsule 1,000 mg PO Q8H PRN PRN #30 caps 05/13/22 Rx hydrocodone 5 mg-acetaminophen 325 1 tab PO Q6H PRN #5 tabs 05/13/22 Rx mg tablet ibuprofen 600 mg tablet 600 mg PO TID #30 tabs 05/13/22 Rx Exam Resp Auscultation: clear to auscultation bilaterally Cardio Rate: regular rate Rhythm: regular rhythm Results Last Vital Signs Temp 36.2 C L 05/13/22 07:57 Pulse 88 05/13/22 07:57 Resp 16 05/13/22 07:57 BP 112/80 05/13/22 07:57 Pulse Ox 94 05/13/22 07:57
[2022-05-13] MEDS: Lidocaine 1% Multi-Dose W/EPI 1/100,000 50 ML VIAL (09:37)
[2022-05-13] MEDS: Sodium Bicarbonate 50 MEQ/50 ML VIAL (09:37)
[2022-05-13 09:50] VITALS: BP 112/69; PULSE 89; RESP 15; TEMP 36.4; O2SAT 93
[2022-05-13 10:23] VITALS: BP 129/86; PULSE 92; RESP 17; TEMP 36.3; O2SAT 93
--- NOTE | 2022-05-13 10:24 | ROE_ITS ---
Date of service: 05/13/22 Time of Service: 09:15 Operative Note Operative Note DATE OF PROCEDURE: 05/13/22 PRE-OP DIAGNOSIS: Right Carpal Tunnel Syndrome POST-OP DIAGNOSIS: same PROCEDURE: Right Endoscopic Carpal Tunnel Release SURGEON: Car Willoughby ANESTHESIA TYPE: General:No Airway Refer to Anesthesia Record ESTIMATED BLOOD LOSS: 0 PATHOLOGY: none sent TOURNIQUET TIME: 5 COMPLICATIONS: None Patient was transported to: same day Patient's condition: stable Indications: I have seen Jammie in clinic for symptoms of carpal tunnel syndrome. The numbness, tingling, and pain limited function. Clinical exam findings with nerve conduction tests confirmed the diagnosis of carpal tunnel syndrome. Nonoperative measures such as bracing, time, activity modifications had been tried but disability and pain persisted. I discussed carpal tunnel release with the patient. I reviewed the risks of the procedure to include, but not limited to, bleeding, infection, pain, stiffness, incomplete release, damage to nerves or vessels, persistent numbness, recurrence. Despite these risks, the patient elected to proceed. Findings: There was tightened carpal tunnel. This was dilated and released successfully with the endoscopic with increased space within the tunnel. The antebrachial fascia was released proximally freeing the median nerve at the wrist. Procedure Description: Jammie was greeted in the preoperative holding area where the correct side was identified and marked. The consent was reviewed with the patient and signed. The history and physical was updated. All questions were answered. Jammie was taken back to the operating room. The patient was placed into the supine position on the operating room table with the right arm on an arm board. A nonsterile tourniquet was placed high onto the arm. All bony prominences were well padded. Prophylactic antibiotics in the form of Cefazolin were administered. The right arm was then prepped with Chloraprep and draped in a standard fashion with stockinette and extremity drape. A timeout to confirm correct identity, side and site, procedure, allergies, anesthesia, and medical concerns was performed. The surgical site was marked in the volar wrist creases in line with the radial border of the fourth ray. This area was anesthetized with approximately 6cc of 1% Lidocaine. The limb was then exsanguinated with an Esmarch. The skin was incised with a 15 blade, approximately 1cm. The skin only was cut and the deeper tissue was dissected bluntly with a tenotomy scissor, avoiding passing nerve and venous structures. The fascia was penetrated and opened bluntly. A two-prong skin hook was placed under this proximal fascial edge. A series of hamate finders were used to identify and dilate the carpal tunnel. Synovial elevator was used to free synovial attachments to the underside of the transverse carpal ligament. My thumb was kept in the palm to chase the distal extent of the carpal tunnel and correctly position the hand. The [employer] end oscope was inserted without difficulty and without resistance. Excellent visualization showed horizontally running fibers of the transverse carpal ligament (TCL). The distal extent of the TCL was visualized and the end of the scope palpated with the thumb. The blade was elevated and withdrawn from distal to proximal. The TCL was split into two flaps. The endoscope was reinserted to confirm complete release and any remnant ligament was incised. The scope was withdrawn and the proximal aspect of the carpal tunnel was grossly inspected and appeared release with the median nerve visible. The antebrachial fascia at the level of the wrist was then freed from the overlying skin and then the underlying median nerve with blunt dissection. This was transected longitudinally for about 3cm proximal to the wrist incision. The wound was then irrigated with easy flow of irrigant distally and proximally. The incision was closed with a single 4-0 Nylon suture. The wound was dressed with Xeroform, Gauze, Kerlix and Servando. The tourniquet was deflated with the initial dressing and held with some pressure. Blood flow returned easily to all digits with capillary refill less than 2 seconds. The patient tolerated the procedure well and was returned to the Same Day Surgery area in a stable condition suffering no known complication.
[2022-05-13] MEDS: oxyCODONE 5 MG TAB PO (10:29)
--- NOTE | 2022-05-13 10:42 | W.ANESPOSTOP ---
Postoperative Evaluation Date, Time and Location Date Performed: 05/13/22 Time Performed: 10:42 Patient Location: Day Surgery Unit Vital Signs Most Recent Imported Vital Signs: Most Recent Vital Signs Temp Pulse Resp BP Pulse Ox 36.4 C L 89 15 112/69 93 05/13/22 09:50 05/13/22 09:50 05/13/22 09:50 05/13/22 09:50 05/13/22 09:50 Pain Score Most Recent Pain Score: Most Recent Pain Score Pain Level 7 05/13/22 09:50 Assessment Mental Status: Awake (Alert & Oriented to Patient Baseline) Airway and Respiratory Function: Patent airway with normal (patient baseline) respiratory exam Cardiovascular Function: Hemodynamically Stable Hydration Status: Adequately Hydrated Nausea & Vomiting: No Nausea or Vomiting Pain: Pain is Moderate or Severe Postoperative Pain Management: Pain being addressed with medication Peripheral Nerve Block: Patient did not receive a nerve block
== END 2022-05-13 10:57 | disposition home or self-care (01) ==
PROVIDERS: PCP Family Medicine; Visit Provider Student in an Organized Health Care Education/Training Program
PROC: 01N54ZZ Release Median Nerve, Percutaneous Endoscopic Approach (ICD-10-PCS; CPT 29848; principal; 2022-05-13 09:45)
DX: G56.03 Carpal tunnel syndrome, bilateral upper limbs (principal); E11.9 Type 2 diabetes mellitus without complications; G89.4 Chronic pain syndrome; E78.5 Hyperlipidemia, unspecified
CPT/HCPCS: 29848; 20985; 27130; J2250

== ENCOUNTER 2022-05-16 16:25 | Outpatient (REF) | payer MEDICARE, MEDICAID, SELFPAY ==
[2022-05-16 22:03] LABS: Bilirubin Negative (Negative); Blood Negative (Negative); Clarity Clear (Clear); Glucose Negative (Negative); Ketones 40 mg/dL (Negative); Leukocyte Esterase Negative (Negative); Nitrite Negative (Negative); Specific Gravity >= 1.030 (1.005-1.025); Urobilinogen 0.2 EU/dL (Up TO 0.2)
== END 2022-05-16 16:26 | disposition home or self-care (01) ==
LOC: LBN 16:25
PROVIDERS: PCP Family Medicine; Visit Provider Physician Assistant Medical
DX: R30.9 Painful micturition, unspecified (principal)
CPT/HCPCS: 87329; 81003; 87480; 87510; 87660

== ENCOUNTER → 2022-05-23 09:27 | Outpatient (BNVA) | payer MEDICARE, MEDICAID, SELFPAY | PROVIDERS: PCP Family Medicine; Referring Provider Family Medicine; Visit Provider Physician Assistant Surgical | DX: Z47.89 Encounter for other orthopedic aftercare (principal) ==

== ENCOUNTER 2022-07-09 09:29 | Outpatient (REF) | payer MEDICARE, MEDICAID, SELFPAY ==
[2022-07-09 22:55] LABS: Albumin, Ur < 0.6 mg/dL (See Note)
== END 2022-07-09 09:30 | disposition home or self-care (01) ==
LOC: NCHCN 09:29
PROVIDERS: PCP Family Medicine; Visit Provider Family Medicine
DX: E11.9 Type 2 diabetes mellitus without complications (principal)
CPT/HCPCS: 82043; 82570

== ENCOUNTER 2022-08-03 16:55 | Emergency (ER) | payer MEDICARE, MEDICAID, SELFPAY ==
--- NOTE | 2022-08-03 16:45 | RT.EKG_ITS ---
APPROVED REPORT Exam: Resting ECG Reason for Exam: chest pain Patient Location: E HR:86 bpm ECG Measurements Heart Rate 86 AXIS PA 155 P 4 QRSd 78 QRS -11 QT 409 T 9 QTc 490 Conclusion Sinus rhythm...normal P axis, V-rate 60- 99
[2022-08-03 17:04] VITALS: PULSE 90; RESP 21; TEMP 36.8; O2SAT 93
[2022-08-03] MEDS: Normal Saline 500 ML IV (17:20)
--- NOTE | 2022-08-03 17:30 | DI.CT_ITS ---
Exam(s) CT HEAD WO EXAM: CT HEAD WO CLINICAL HISTORY: [facility], Covid positive. TECHNIQUE: Imaging Protocol: Axial computed tomography images with coronal and sagittal reformatted images were created and reviewed COMPARISON: CT CT HEAD CERVICAL SPINE WO from 01/22/2022 FINDINGS: There are no skull fractures nor fluid in the visualized paranasal sinuses. There is no evidence of intracranial hemorrhage, mass effect, or shift of midline structures. There are no extra-axial fluid collections. The ventricles are not enlarged or shifted and there is no blo od within the ventricular system nor within the basal cisterns. IMPRESSION: No acute intracranial findings on this noninfused CT scan of the brain. RADIATION DOSE DELIVERED: 702.22mGy.cm Total DLP DATA REPOSITORY: All CT scans at this facility are submitted to the National Radiology Data Registry (NRDR) Dose Index Registry (DIR) with the [employer] ([employer]). RADIATION OPTIMIZATION: All CT scans at this facility use at least one of these dose optimization te chniques: automated exposure control; mA and/or kV adjustment per patient size (includes targeted exa ms where dose is matched to clinical indication); or iterative reconstruction.
--- NOTE | 2022-08-03 17:30 | DI.RAD_ITS ---
Exam(s) XR PORTABLE CHEST AP EXAM: XR PORTABLE CHEST AP CLINICAL HISTORY: PUI,Covid, Chest pain, SOB. TECHNIQUE: 2D digital imaging was performed. COMPARISON: CR,XR XR CHEST 2V PA LATERAL from 08/07/2021 FINDINGS: Single AP portable view. Heart size is upper normal. The mediastinum is not widened. Lungs are clear. No infiltrates nor obvious pleural effusions. IMPRESSION: No acute pulmonary findings on this single AP portable view of the chest. Incidentally noted is calcific rotator cuff tendinitis in the left shoulder. DATA REPOSITORY: RADIATION DOSE DELIVERED: All CT scans at this facility use at least one of these dose optimization techniques: automated exposure control; mA and/or kV adjustment per patient size (includes targeted e xams where dose is matched to clinical indication); or iterative reconstruction.
[2022-08-03 17:33] LABS: Abs Immature Grans 0.02 10^3/uL (0.0-0.06); Absolute Basophil Count 0.05 10^3/uL (0.0-0.2); Absolute Eosinophil Count 0.27 10^3/uL (0.0-0.7); Absolute Lymphocyte Count 2.48 10^3/uL (1.2-3.4); Absolute Monocyte Count 0.42 10^3/uL (0.1-0.8); Absolute Neutrophil Count 3.95 10^3/uL (1.2-6.7); Basophils % 0.7; Eosinophils % 3.8; HCT 41.6 % (36.0-46.0); HGB 13.8 g/dL (11.2-15.7); Immature Grans % 0.3; Lymphocytes % 34.5; MCH 30.3 pg (27.0-33.0); MCHC 33.2 % (32.0-36.0); MCV 91 fL (80-95); Monocytes % 5.8; Neutrophils % 54.9; Platelet Count 180 10^3/uL (130-400); RBC 4.55 10^6/uL (3.93-5.22); RDW 13.1 % (11.7-14.6); RDW-SD 43.3 fL; WBC 7.19 10^3/uL (4.4-10.8)
--- NOTE | 2022-08-03 17:34 | ED.GENADUL_ITS ---
Discharge Plan Disposition Patient Disposition: HOME Condition: Stable Discharge Details Clinical Impression: COVID-19 Primary Care Provider: Edie Ellis ED Provider: Cary Griffith Home Meds and New Rx's Prescriptions: Continued metoprolol succinate 50 mg tablet extended release 24 hr 50 mg PO DAILY Qty: 30 11RF naproxen 250 mg tablet 250 mg PO BID PRN vitamin [id number] acid 1 EACH tablet 1 ea PO DAILY Label Comments: 1000 mcg nicotine 7 mg/24 hr patch 24 hour 1 patch transdermal Q24H cholecalciferol (vitamin D3) 50 mcg (2,000 unit) capsule 50 mcg PO DAILY metformin 500 mg tablet extended release 24 hr 1,000 mg PO BID Trulicity 1.5 mg/0.5 mL pen injector 3 mg subcut QWEEK losartan 25 mg tablet 25 mg PO DAILY rosuvastatin [Crestor] 5 MG tablet 10 mg PO QPM naratriptan 2.5 mg tablet 2.5 mg PO BID PRN riboflavin (vitamin B2) [Vitamin B-2] 50 MG tablet 200 mg PO BID pregabalin [Lyrica] 75 MG capsule 100 mg PO TID Label Comments: 100 mg am, 100 mg 2 pm, 100 mg at HS polyethylene glycol 3350 17 gram/dose Powder 17 g PO DAILY PRN paroxetine HCl 20 mg tablet 40 mg PO DAILY levothyroxine [Synthroid] 25 MCG tablet 50 mcg PO HS magnesium oxide 400 MG tablet 800 mg PO BID omeprazole 20 mg Capsule,Delayed Release(Dr/Ec) 20 mg PO DAILY prochlorperazine maleate 10 mg Tablet 10 mg PO DAILY PRN (Reason: Headache) albuterol sulfate [Ventolin HFA] 90 mcg/actuation Hfa Aerosol Inhaler 2 puff INHALATION QID PRN naloxone [Narcan] 4 mg/actuation [place],Non-Aerosol 1 spray INTRANASAL ONCE PRN Label Comments: Never used. valacyclovir 1 gram tablet 500 mg PO QHS lamotrigine 100 mg Tablet Extended Release 24hr 100 mg PO HS aspirin 81 mg tablet,delayed release (DR/EC) 81 mg PO DAILY Qty: 14 0RF Rx Instructions: Take 1 daily with a meal for 30 days estradiol 1 mg tablet 1 mg PO BID Label Comments: TAKE 1 TABLET BY MOUTH EVERY MORNING THEN 2 TABLETS EVERY EVENING hydrocortisone 2.5 % cream 1 applic topical QID Qty: 30 6RF acetaminophen 500 mg capsule 1,000 mg PO Q8H PRN PRNQty: 30 0RF ibuprofen 600 mg tablet 600 mg PO TID Qty: 30 0RF hydromorphone 2 mg tablet 2 - 4 mg PO Q6H PRN (Reason: pain) Qty: 20 0RF Paxlovid (EUA) 150-100 mg tablets,dose pack PO Label Comments: TAKE 1 NIRMATRELVIR TABLET AND 1 RITONAVIR TABLET TOGETHER BY MOUTH BID FOR 5 DAYS. HOLD ROSUVASTATIN FOR 10 DAYS Rx Instructions: started on 08/01/22 Discharge Instructions Instructions: Acute Headache (ED), COVID-19 (Coronavirus Disease 2019) (ED) Additional Instructions: At this time head CT, chest x-ray lab work is largely unremarkable except for a low magnesium. Please take an sznx-nvl-icbedom magnesium supplement daily for the next few days. I do suspect that you have worsened symptoms due to the COVID. You may continue taking the Paxlovid or discuss this with your PCP. Follow up with primary care provider in 3-5 days. Return to ED sooner if any worsening or concerns. Increase oral fluids. Please take Tylenol or Ibuprofen with food every 4-6 hours as needed for pain and swelling. Please take zinc, vitamin D3 and vitamin C [id number]. Referrals: Edie Ellis MD [Primary Care Provider] - 3 days Discharge Data Discharge Date/Time-TO BE ENTERED AT DEPARTURE: 08/03/22 20:59 Medical Decision Making 47-year-old female presents to the ER with chief complaint of dizziness, headache, chest pain which has been ongoing since Thursday. She was diagnosed with COVID on Thursday of this week and started Paxil with on Thursday. She has been on Paxil bid x2 days. She states that she is got left lip numbness no focal neurodeficits noted. She is alert and oriented x4 no pronator drift spring bender are equal bilaterally. She describes her chest pain as tightness. Work-up ordered including serial troponins, D-dimer will add on a proBNP will order chest x-ray will consider head CT and CT chest. 500 cc normal saline and a gram of Tylenol IV ordered. 1928: Work-up is largely unremarkable. Negative head CT negative chest x-ray. Labs are all within normal limits. Patient is continuing to complain of a headache. Patient is received a gram of Tylenol and 500 cc bolus. I will give her 50 mg of Toradol. She is receiving a gram of magnesium IV due to a magnesium result of 1.2. Second troponin within normal limits. Patient discharged home with follow-up care instructions for strict return instructions to follow-up with PCP Medical Records Medical records reviewed: Yes I reviewed the patient's medical records. Lab Data Lab results reviewed: Yes I reviewed the patient's lab results. Labs: Laboratory Tests Range/Units 08/03/22 08/03/22 08/03/22 17:18 17:18 17:18 WBC (4.4-10.8) 10^3/uL 7.19 RBC (3.93-5.22) 10^6/uL 4.55 Hgb (11.2-15.7) g/dL 13.8 Hct (36.0-46.0) % 41.6 MCV (80-95) fL 91 MCH (27.0-33.0) pg 30.3 MCHC (32.0-36.0) % 33.2 RDW (11.7-14.6) % 13.1 Plt Count (130-400) 10^3/uL 180 MPV (8.0-11.0) fL 10.0 Immature Gran % 0.3 Neutrophils % 54.9 Lymphocytes % 34.5 Monocytes % 5.8 Eosinophils % 3.8 Basophils % 0.7 Nucleated RBC % (0.0-0.3) % 0.0 Absolute Neutrophils (1.2-6.7) 10^3/uL 3.95 Absolute Lymphocytes (1.2-3.4) 10^3/uL 2.48 Absolute Monocytes (0.1-0.8) 10^3/uL 0.42 Absolute Eosinophils (0.0-0.7) 10^3/uL 0.27 Absolute Basophils (0.0-0.2) 10^3/uL 0.05 D-Dimer (<500) ng/mlFEU 278 Sodium (136-145) mmol/L 138 Potassium (3.5-5.1) mmol/L 4.0 Chloride (98-107) mmol/L 99 Carbon Dioxide (21.0-32.0) mmol/L 30.4 Anion Gap (3-11) mmol/L 8.6 BUN (7-18) mg/dL 14 Creatinine (0.55-1.02) mg/dL 0.6 Est GFR (CKD-EPI 2020) (mL/min/1.73m2) 111.34 Glucose (74-106) mg/dL 113 H Calcium (8.5-10.1) mg/dL 8.9 Magnesium (1.8-2.4) mg/dL 1.2 L Total Bilirubin (0.2-1.0) mg/dL 0.5 AST (15-37) U/L 28 ALT (14-59) U/L 27 Alkaline Phosphatase (46-116) U/L 65 Troponin I (<or=60) ng/L < 50 NT-Pro-B Natriuret Pep (<300) pg/mL Total Protein (6.4-8.2) g/dL 7.0 Albumin (3.4-5.0) g/dL 3.3 L Range/Units 08/03/22 08/03/22 17:18 20:10 WBC (4.4-10.8) 10^3/uL RBC (3.93-5.22) 10^6/uL Hgb (11.2-15.7) g/dL Hct (36.0-46.0) % MCV (80-95) fL MCH (27.0-33.0) pg MCHC (32.0-36.0) % RDW (11.7-14.6) % Plt Count (130-400) 10^3/uL MPV (8.0-11.0) fL Immature Gran % Neutrophils % Lymphocytes % Monocytes % Eosinophils % Basophils % Nucleated RBC % (0.0-0.3) % Absolute Neutrophils (1.2-6.7) 10^3/uL Absolute Lymphocytes (1.2-3.4) 10^3/uL Absolute Monocytes (0.1-0.8) 10^3/uL Absolute Eosinophils (0.0-0.7) 10^3/uL Absolute Basophils (0.0-0.2) 10^3/uL D-Dimer (<500) ng/mlFEU Sodium (136-145) mmol/L Potassium (3.5-5.1) mmol/L Chloride (98-107) mmol/L Carbon Dioxide (21.0-32.0) mmol/L Anion Gap (3-11) mmol/L BUN (7-18) mg/dL Creatinine (0.55-1.02) mg/dL Est GFR (CKD-EPI 2020) (mL/min/1.73m2) Glucose (74-106) mg/dL Calcium (8.5-10.1) mg/dL Magnesium (1.8-2.4) mg/dL Total Bilirubin (0.2-1.0) mg/dL AST (15-37) U/L ALT (14-59) U/L Alkaline Phosphatase (46-116) U/L Troponin I (<or=60) ng/L < 50 NT-Pro-B Natriuret Pep (<300) pg/mL 140 Total Protein (6.4-8.2) g/dL Albumin (3.4-5.0) g/dL HPI General Mode of arrival: ambulatory . Date/Time Provider Initiated Documentation: 08/03/22 17:00 . Limitations to Documentation: no limitations . Information obtained by: patient, RN notes reviewed and old records reviewed . HPI Narrative: 47-year-old female presents to the ER with chief complaint of dizziness, headache, chest pain which has been ongoing since Thursday. She was diagnosed with COVID on Thursday of this week and started Paxil with on Thursday. She has been on Paxil bid x2 days. She states that she is got left lip numbness no focal neurodeficits noted. She is alert and oriented x4 no pronator drift spring bender are equal bilaterally. She describes her chest pain as tightness. She does have a past medical history of bipolar, cardiomyopathy, coronary artery disease, type 2 diabetes, obesity, hyperlipidemia, hypothyroidism. Patient states that she had a CHF episode on and took a diuretic that she had leftover which improved swelling in her lower extremities. She does take aspirin 81 mg daily. Related Data Home Medications Medication Instructions Recorded Confirmed rosuvastatin 5 mg tablet (Crestor) 10 mg PO QPM 06/28/13 08/03/22 riboflavin (vitamin B2) 50 mg 200 mg PO BID 03/13/15 08/03/22 tablet (Vitamin B-2) levothyroxine 25 mcg tablet 50 mcg PO HS 03/05/17 08/03/22 (Synthroid) magnesium oxide 400 mg (241.3 mg 800 mg PO BID 03/05/17 08/03/22 magnesium) tablet pregabalin 75 mg capsule (Lyrica) 100 mg PO TID 03/06/17 08/03/22 vitamin B12 500 mcg-folic acid 400 1 ea PO DAILY 03/11/17 08/03/22 mcg tablet albuterol sulfate 90 mcg/actuation 2 puff inhalation QID PRN 03/10/19 08/03/22 aerosol inhaler (Ventolin HFA) naloxone 4 mg/actuation nasal 1 spray intranasal ONCE PRN 03/10/19 05/13/22 spray (Narcan) omeprazole 20 mg capsule,delayed 20 mg PO DAILY 03/10/19 08/03/22 release prochlorperazine maleate 10 mg 10 mg PO DAILY PRN Headache 03/10/19 08/03/22 tablet metoprolol succinate 50 mg 50 mg PO DAILY #30 tabs 03/21/19 08/03/22 tablet,extended release 24 hr valacyclovir 1 gram tablet 500 mg PO QHS 03/21/19 08/03/22 lamotrigine 100 mg tablet,extended 100 mg PO HS 09/28/19 08/03/22 release 24 hr aspirin 81 mg tablet,delayed 81 mg PO DAILY Prevent blood clot 09/30/19 08/03/22 release #14 tabs polyethylene glycol 3350 17 17 g PO DAILY PRN 12/22/19 08/03/22 gram/dose oral powder naratriptan 2.5 mg tablet 2.5 mg PO BID PRN 03/27/20 08/03/22 paroxetine HCl 20 mg tablet 40 mg PO DAILY 03/27/20 08/03/22 estradiol 1 mg tablet 1 mg PO BID 06/10/21 08/03/22 cholecalciferol (vitamin D3) 50 50 mcg PO DAILY 11/21/21 08/03/22 mcg (2,000 unit) capsule metformin 500 mg tablet,extended 1,000 mg PO BID 11/21/21 08/03/22 release 24 hr nicotine 7 mg/24 hr daily 1 patch transdermal Q24H 11/21/21 08/03/22 transdermal patch dulaglutide 1.5 mg/0.5 mL 3 mg subcut QWEEK 12/18/21 08/03/22 subcutaneous pen injector (Trulicity) losartan 25 mg tablet 25 mg PO DAILY 12/18/21 08/03/22 hydrocortisone 2.5 % topical cream 1 applic topical QID #30 grams 12/31/21 08/03/22 naproxen 250 mg tablet 250 mg PO BID PRN 04/16/22 08/03/22 acetaminophen 500 mg capsule 1,000 mg PO Q8H PRN PRN #30 caps 05/13/22 08/03/22 hydromorphone 2 mg tablet 2 - 4 mg PO Q6H PRN pain #20 tabs 05/13/22 08/03/22 ibuprofen 600 mg tablet 600 mg PO TID #30 tabs 05/13/22 08/03/22 nirmatrelvir 150 mg-ritonavir 100 dose pk PO 08/03/22 08/03/22 mg tablets in a dose pack (EUA) (Paxlovid) Previous Rx's Medication Instructions Recorded metoprolol succinate 50 mg 50 mg PO DAILY #30 tabs 03/21/19 tablet,extended release 24 hr aspirin 81 mg tablet,delayed 81 mg PO DAILY Prevent blood clot 09/30/19 release #14 tabs hydrocortisone 2.5 % topical cream 1 applic topical QID #30 grams 12/31/21 acetaminophen 500 mg capsule 1,000 mg PO Q8H PRN PRN #30 caps 05/13/22 hydromorphone 2 mg tablet 2 - 4 mg PO Q6H PRN pain #20 tabs 05/13/22 ibuprofen 600 mg tablet 600 mg PO TID #30 tabs 05/13/22 Allergies Allergy/AdvReac Type Severity Reaction Status Date / Time Penicillins Allergy Severe throat Verified 08/03/22 17:08 closes Sulfa (Sulfonamide Allergy Mild Hives Verified 08/03/22 17:08 Antibiotics) lactose AdvReac Diarrhea Verified 08/03/22 17:08 General Stated Complaint: ChemExpose RENATO: 2 Review of Systems All systems reviewed & are unremarkable except as noted in HPI and below Constitutional Constitutional: Reports as per HPI, Reports body ache(s), Reports fatigue and Reports headache(s) ENT Ears, Nose, Mouth, and Throat: Reports dizziness and Reports headache(s) Cardiovascular Cardiovascular: Reports chest pain, Reports leg edema and Reports dyspnea Respiratory Respiratory: Reports dyspnea Neurologic Neurologic: Reports dizziness and Reports headache(s) Endocrine Endocrine: Reports fatigue PFSH All Active Problems (Updated 08/03/22 @ 19:43 by Cary Griffith NP) COVID-19 (Acute) Bilateral carpal tunnel syndrome (Acute) Amplified musculoskeletal pain (Acute) Tendonitis of long head of biceps brachii of right shoulder (Acute) Bursitis of right shoulder (Acute) Traumatic tear of right rotator cuff (Acute) Calcific tendinitis of right shoulder (Acute) 40mg depo-medrol injection: 02/11/2022 Lateral epicondylitis of right elbow (Acute) 40mg depo-medrol injection: 02/11/2022 Hematest positive stools (Acute) CAD (coronary artery disease) (Chronic) mild non-obstructive disease per cardiac cath report from [facility] 09/07/2013 Cardiomyopathy (Chronic) last echocardiogram 01/27/2019, LVEF 50-55%, no regional wall motion abnormalities, mild LVH, mild MR; normal RV size and function Bipolar disorder (Chronic) 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 (Acute 01/25/14) Atypical chest pain (Acute) Type 2 diabetes mellitus (Acute) DVT prophylaxis (Acute) Palpitations (Acute) Spell of altered consciousness (Acute) Elevated brain natriuretic peptide (BNP) level (Acute) Chest pain (Acute) Screening for colon cancer (Acute) Tobacco use (Acute) Fecal occult blood test positive (Acute) Medical History Acute kidney injury Anxiety 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 (01/25/14) Bursitis of left shoulder (~03/2019) Carpal tunnel syndrome, left Cervical radiculopathy bilateral Change in mental status Chronic migraine (03/07/15) Chronic pain syndrome Dehydration Depression Diabetes Discharge planning issues Dizziness, nonspecific Dyspnea Elbow fracture, right Fatigue Hyperlipidemia Hyperthyroidism Impingement syndrome of left shoulder (~03/2019) Lactose intolerance Left rotator cuff tear (~03/2019) Medication overuse headache (03/07/15) Migraine headache with aura (03/07/15) Migraine headache without aura (03/07/15) Morbid obesity Orthostasis Polycystic ovaries Shortness of breath Splenomegaly Suicidal ideation Tachycardia Tendinitis of long head of biceps brachii of left shoulder (~03/2019) Unresponsive episode Surgical History History of arthroscopy of left shoulder History of section x2 History of endometrial ablation Hx of cardiac catheterization 08/2021-no stent placed Previous back surgery S/P hysterectomy Social History Smoking/Tobacco Use Status: Current every day Tobacco Type: cigarettes Quit status: quit date established Smoking risk assessment performed?: Yes Alcohol Intake: never Drug use: Never Substance use type: does not use Number of Children: 3 Current gender identity: female What is your relationship status?: Panel score (0-1 are the most socially isolated patients): 0 What type of physical activity do you participate in: none Do you feel safe at home: Yes Do you feel safe in your relationship?: Yes Exam Narrative Exam Narrative: Constitutional: Alert and oriented x3. Appears stated age. Obese body habitus. Head: Normocephalic, no trauma. Eyes: Pupils PERRL, Red reflex noted, EOM's intact. Eyelids symmetrical without lesions, discharge, or swelling. ENT: Bilateral TM's WNL, External ear normal to inspection, no mastoid TTP, swelling, or erythema, Nasal turbinates WNL, no nasal discharge. Normal dentition, Posterior pharynx WNL, no exudate. Chest: RRR, Normal S1, S2, distal pulses intact. Resp: Lungs clear to auscultation bilaterally, no wheezes, rales, or rhonchi. Abdomen: Soft, non-distended, Normoactive bowel sounds all 4 quads. Musculoskeletal: Normal gait, 5/5 strength to all four extremities. Skin: No suspicious rashes or lesions. Capillary refill less than 2 sec. Neurologic: Cranial nerves II-XII intact. Alert and oriented x 3. Motor: No deficits noted. Sensory: Intact bilaterally all 4 extremities. Reflexes: DTR's intact bilaterally.. No pronator drift no facial droop spring bender equal bilaterally. Hematologic/Lymphatic: No ecchymosis, no lymphadenopathy. Course Vital Signs Vital signs: Vital Signs Temperature 36.8 C 08/03/22 17:04 Pulse 90 08/03/22 17:04 Respiratory Rate 21 08/03/22 17:04 Pulse Oximetry 93 08/03/22 17:04 Temperature 36.8 C 08/03/22 17:04 Temperature Source Temporal Artery Scan 08/03/22 17:04 Pulse 90 08/03/22 17:04 Respiratory Rate 21 08/03/22 17:04 Blood Pressure Position Supine 08/03/22 17:04 Pulse Oximetry 93 08/03/22 17:04 Oxygen Delivery Method Room Air 08/03/22 17:04 Oxygen Flow Rate 0 08/03/22 17:04
[2022-08-03 17:53] LABS: ALT 27 U/L (14-59); AST 28 U/L (15-37); Albumin 3.3 g/dL (3.4-5.0); Alkaline Phosphatase 65 U/L (46-116); Anion Gap 8.6 mmol/L (3-11); BUN 14 mg/dL (7-18); Bilirubin, Total 0.5 mg/dL (0.2-1.0); CO2 30.4 mmol/L (21.0-32.0); CREATININE 0.6 mg/dL (0.55-1.02); Calcium 8.9 mg/dL (8.5-10.1); Chloride 99 mmol/L (98-107); Estimated GFR 111.34 (mL/min/1.73m2); Glucose 113 mg/dL (74-106); Magnesium 1.2 mg/dL (1.8-2.4); Sodium 138 mmol/L (136-145); Troponin I < 50 ng/L (<or=60)
[2022-08-03] MEDS: ACETAMINOPHEN 1,000 MG/100 ML BTL 400 MG IVPB (18:01)
[2022-08-03 18:14] LABS: NT-proBNP 140 pg/mL (<300)
[2022-08-03 18:19] LABS: D-Dimer 278 ng/mlFEU (<500)
--- NOTE | 2022-08-03 18:31 | DI.VRAD_ITS ---
PROCEDURE INFORMATION: Exam: CT Head Without Contrast Exam date and time: 08/03/2022 6:24 PM Age: 47 years old Clinical indication: Other: WATSON, covid positive TECHNIQUE: Imaging protocol: Computed tomography of the head without contrast. Radiation optimization: All CT scans at this facility use at least one of these dose optimization techniques: automated exposure control; mA and/or kV adjustment per patient size (includes targeted exams where dose is matched to clinical indication); or iterative reconstruction. COMPARISON: CT HEAD CERVICAL SPINE WO 01/22/2022 5:13 PM FINDINGS: Brain: Mild volume loss. No hemorrhage. Unremarkable white matter. No mass effect. Cerebral ventricles: No ventriculomegaly. Paranasal sinuses: Visualized sinuses are unremarkable. No fluid levels. Mastoid air cells: Visualized mastoid air cells are well aerated. Bones/joints: Unremarkable. No acute fracture. Soft tissues: Unremarkable. IMPRESSION: No acute intracranial abnormality. Dictated and Authenticated by: Kleber La MD. Ordering:YUE Townsend MD
--- NOTE | 2022-08-03 18:32 | DI.VRAD_ITS ---
PROCEDURE INFORMATION: Exam: XR Chest Exam date and time: 08/03/2022 6:09 PM Age: 47 years old Clinical indication: Other: Pui covid, chest pain, SOB TECHNIQUE: Imaging protocol: Radiologic exam of the chest. Views: 1 view. COMPARISON: CT CHEST/ABD/PEL W 01/22/2022 5:19 PM FINDINGS: Lungs: Mild chronic interstitial prominence. No consolidation. Pleural spaces: Unremarkable. No pleural effusion. No pneumothorax. Heart/Mediastinum: Unremarkable. No cardiomegaly. Bones/joints: Unremarkable. IMPRESSION: No acute findings. Dictated and Authenticated by: Kleber La MD. Ordering:YUE Townsend MD
[2022-08-03] MEDS: MAGNESIUM SULFATE 1 GM/100 ML BAG IVPB (18:38)
[2022-08-03 18:52] VITALS: BP 143/73; PULSE 90; RESP 21; TEMP 36.7; O2SAT 94
[2022-08-03] MEDS: Ketorolac 15 MG/ML VIAL IVP (19:49)
[2022-08-03 20:42] LABS: Troponin I < 50 ng/L (<or=60)
[2022-08-03 20:51] VITALS: BP 143/81; PULSE 95; RESP 19; O2SAT 93
== END 2022-08-03 20:59 | disposition home or self-care (01) ==
PROVIDERS: Emergency Provider Registered Nurse Emergency; PCP Family Medicine
DX: U07.1 COVID-19 (principal); E16.2 Hypoglycemia, unspecified; R07.89 Other chest pain; E11.9 Type 2 diabetes mellitus without complications; E66.9 Obesity, unspecified; R06.02 Shortness of breath; F17.210 Nicotine dependence, cigarettes, uncomplicated; Z79.84 Long term (current) use of oral hypoglycemic drugs; Z79.82 Long term (current) use of aspirin
CPT/HCPCS: 36415; 80053; 93005; 96361; 96365; 96366; 96367; 96375; 99284; 70450; 71045; 83735; 83880; 84484; 85025; 85379; 93010; 99285; J0131; J1885; J3475

== ENCOUNTER → 2022-08-11 10:33 | Outpatient (BNVA) | payer MEDICARE, MEDICAID, SELFPAY | PROVIDERS: PCP Family Medicine; Referring Provider Family Medicine; Visit Provider Student in an Organized Health Care Education/Training Program | DX: Z47.89 Encounter for other orthopedic aftercare (principal); G56.03 Carpal tunnel syndrome, bilateral upper limbs ==

== ENCOUNTER 2022-09-07 15:07 | Inpatient (IN) | payer MEDICARE, MEDICAID, SELFPAY ==
[2022-09-07] VITALS (85 sets, daily range): BP systolic 110–161; BP diastolic 50–102; PULSE 96–138; RESP 1–45; TEMP 36.5; O2SAT 73–98
--- NOTE | 2022-09-07 15:00 | RT.EKG_ITS ---
APPROVED REPORT Exam: Resting ECG Reason for Exam: sob Patient Location: E HR:129 bpm ECG Measurements Heart Rate 129 AXIS MD 141 P 66 QRSd 80 QRS -9 QT 321 T -3 QTc 471 Conclusion Sinus tachycardia...rate> 99 sinus tachycardia, poor r wave progression, consider right heart strain pattern
--- NOTE | 2022-09-07 15:15 | DI.CT_ITS ---
Exam(s) CT CHEST PE CTA EXAM: CT CHEST PE CTA CLINICAL HISTORY: sob, hypoxia. TECHNIQUE: Imaging Protocol: Axial CT angiography was performed with multi-slice acquisition and mu lti-planar and/or 3D reconstructions. CONTRAST MATERIAL: Intravenous: Omnipaque 350 contrast volume:100 mL COMPARISON: CT CT CHEST/ABD/PEL W from 01/22/[address] LUMBAR SPINE RECONS from 01/22/2022 CR,XR XR PORTABLE CHEST AP from 08/03/2022 FINDINGS: The examination is limited due to patient motion artifact. Tracheobronchial tree: Patent where visualized. Pulmonary parenchyma: Multifocal ground-glass opacities are present throughout the lungs. No archite ctural distortion. Pulmonary Arteries: No evidence of filling defect to suggest pulmonary emboli. The subsegmental pulmo nary arteries are difficult to evaluate due to motion artifact. Mediastinum and Kayla: No dominant adenopathy or fluid collection. The esophagus is unremarkable. Th ere is a small hiatal hernia. Visualized thyroid gland: Unremarkable. Pleura: No effusion or pneumothorax. Heart: The heart is not dilated. No coronary artery calcifications are seen. No pericardial effusion. Aorta: Thoracic aorta non-dilated. No evidence of dissection. Upper abdomen: There is diffuse fatty infiltration of the liver. Soft tissues: Unremarkable. Bones: Within normal limits for the patient's age. IMPRESSION: 1. No evidence of pulmonary embolism, thoracic aortic dissection or aneurysm. 2. Diffuse ground-glass opacities throughout both lungs. Differential considerations include pulmona ry infection, pulmonary edema, hypersensitivity pneumonitis or ARDS. Please correlate clinically. RADIATION DOSE DELIVERED: 589.22mGy.cm Total DLP DATA REPOSITORY: All CT scans at this facility are submitted to the National Radiology Data Registry (NRDR) Dose Index Registry (DIR) with the [employer] (A[employer]). RADIATION OPTIMIZATION: All CT scans at this facility use at least one of these dose optimization te chniques: automated exposure control; mA and/or kV adjustment per patient size (includes targeted exa ms where dose is matched to clinical indication); or iterative reconstruction.
--- NOTE | 2022-09-07 15:34 | ED.GENADUL_ITS ---
Discharge Plan Disposition Patient Disposition: [facility] INPATIENT Condition: Serious Discharge Details Chief Complaint: RespSymp Clinical Impression: Pulmonary edema, Acute respiratory distress Primary Care Provider: Edie Ellis ED Provider: Kolby Carter Home Meds and New Rx's Prescriptions: No Action metoprolol succinate 50 mg tablet extended release 24 hr 50 mg PO DAILY Qty: 30 11RF naproxen 250 mg tablet 250 mg PO BID PRN prednisone 10 mg tablet 10 mg PO DAILY Qty: 30 0RF Rx Instructions: si tabs daily for 10 days, then 1 tab daily for 10 days. vitamin K20-httde acid 1 EACH tablet 1 ea PO DAILY Label Comments: 1000 mcg nicotine 7 mg/24 hr patch 24 hour 1 patch transdermal Q24H cholecalciferol (vitamin D3) 50 mcg (2,000 unit) capsule 50 mcg PO DAILY metformin 500 mg tablet extended release 24 hr 1,000 mg PO BID Trulicity 1.5 mg/0.5 mL pen injector 3 mg subcut QWEEK losartan 25 mg tablet 25 mg PO DAILY rosuvastatin [Crestor] 5 MG tablet 10 mg PO QPM naratriptan 2.5 mg tablet 2.5 mg PO BID PRN riboflavin (vitamin B2) [Vitamin B-2] 50 MG tablet 200 mg PO BID pregabalin [Lyrica] 75 MG capsule 100 mg PO TID Label Comments: 100 mg am, 100 mg 2 pm, 100 mg at HS polyethylene glycol 3350 17 gram/dose Powder 17 g PO DAILY PRN paroxetine HCl 20 mg tablet 40 mg PO DAILY levothyroxine [Synthroid] 25 MCG tablet 50 mcg PO HS magnesium oxide 400 MG tablet 800 mg PO BID omeprazole 20 mg Capsule,Delayed Release(Dr/Ec) 20 mg PO DAILY prochlorperazine maleate 10 mg Tablet 10 mg PO DAILY PRN (Reason: Headache) albuterol sulfate [Ventolin HFA] 90 mcg/actuation Hfa Aerosol Inhaler 2 puff INHALATION QID PRN naloxone [Narcan] 4 mg/actuation [place],Non-Aerosol 1 spray INTRANASAL ONCE PRN Label Comments: Never used. valacyclovir 1 gram tablet 500 mg PO QHS lamotrigine 100 mg Tablet Extended Release 24hr 100 mg PO HS aspirin 81 mg tablet,delayed release (DR/EC) 81 mg PO DAILY Qty: 14 0RF Rx Instructions: Take 1 daily with a meal for 30 days estradiol 1 mg tablet 1 mg PO BID Label Comments: TAKE 1 TABLET BY MOUTH EVERY MORNING THEN 2 TABLETS EVERY EVENING hydrocortisone 2.5 % cream 1 applic topical QID Qty: 30 6RF acetaminophen 500 mg capsule 1,000 mg PO Q8H PRN PRNQty: 30 0RF ibuprofen 600 mg tablet 600 mg PO TID Qty: 30 0RF hydromorphone 2 mg tablet 2 - 4 mg PO Q6H PRN (Reason: pain) Qty: 20 0RF Medical Decision Making 47-year-old female history of cardiomyopathy, presents with 1 to 2 days of cough and shortness of breath, of note is at home with upper respiratory symptoms, patient is on supplemental estrogen, notably tachypneic and distressed on arrival, saturating in the 70s on room air, moved to resuscitation bay 3, placed on supplemental oxygen, lungs clear bilaterally no wheezing or rhonchi or rales appreciated however patient is tachypneic speaking short sentences. Patient placed on BiPAP with great improvement of oxygenation and comfort. Nebs dexamethasone been started empirically despite lack of wheezing. Clinical suspicion for PE versus pneumonia versus viral respiratory infection versus CHF versus ACS. Stat labs and imaging close monitoring respiratory at bedside. Admission likely pending results 16: 45 appears more comfortable on BiPAP. Saturating 91 to 92%, persistent tachycardia. No white count. Afebrile. High clinical suspicion for PE. Patient pending CT chest. 18: 02 patient tolerating BiPAP with saturations in the low to mid 90s, however when taken off BiPAP she quickly desaturated as low as the 70s on room air. Awaiting official read for CT chest however appears to have diffuse bilateral interstitial infiltrates, bedside ultrasound showing diffuse B-lines throughout consider CHF exacerbation versus arts. Patient was COVID-positive in May is COVID negative today afebrile without a white count therefore consider more likely CHF. Awaiting official read from CT. We will continue BiPAP and will initiate Lasix as patient was taken off of her diuretics over the last several weeks to months and has noted decreased urine output over the past week. Admission to ICU likely 20: 11 given patient's history of close care at [facility] discussed case with ICU team Dr. Maravilla and Dr. Dumont who agreed the patient sounds appropriate to keep in our ICU here at [facility]. We will continue with diuresis CPAP down titrated as tolerated. If any decompensation ICU team at [facility] is more than willing to be reconsulted to consider transfer if needed. HPI General Date/Time Provider Initiated Documentation: 09/07/22 15:13 . HPI Narrative: 47-year-old female history of cardiomyopathy, currently on supplemental estrogen, presents with cough and shortness of breath over the last day of note her is home sick currently taking azithromycin pack, patient does endorse some chest tightness Related Data Home Medications Medication Instructions Recorded Confirmed rosuvastatin 5 mg tablet (Crestor) 10 mg PO QPM 06/28/13 09/07/22 riboflavin (vitamin B2) 50 mg 200 mg PO BID 03/13/15 09/07/22 tablet (Vitamin B-2) levothyroxine 25 mcg tablet 50 mcg PO HS 03/05/17 09/07/22 (Synthroid) magnesium oxide 400 mg (241.3 mg 800 mg PO BID 03/05/17 09/07/22 magnesium) tablet pregabalin 75 mg capsule (Lyrica) 100 mg PO TID 03/06/17 09/07/22 vitamin B12 500 mcg-folic acid 400 1 ea PO DAILY 03/11/17 09/07/22 mcg tablet albuterol sulfate 90 mcg/actuation 2 puff inhalation QID PRN 03/10/19 09/07/22 aerosol inhaler (Ventolin HFA) naloxone 4 mg/actuation nasal 1 spray intranasal ONCE PRN 03/10/19 09/07/22 spray (Narcan) omeprazole 20 mg capsule,delayed 20 mg PO DAILY 03/10/19 09/07/22 release prochlorperazine maleate 10 mg 10 mg PO DAILY PRN Headache 03/10/19 09/07/22 tablet metoprolol succinate 50 mg 50 mg PO DAILY #30 tabs 03/21/19 09/07/22 tablet,extended release 24 hr valacyclovir 1 gram tablet 500 mg PO QHS 03/21/19 09/07/22 lamotrigine 100 mg tablet,extended 100 mg PO HS 09/28/19 09/07/22 release 24 hr aspirin 81 mg tablet,delayed 81 mg PO DAILY Prevent blood clot 09/30/19 09/07/22 release #14 tabs polyethylene glycol 3350 17 17 g PO DAILY PRN 12/22/19 09/07/22 gram/dose oral powder naratriptan 2.5 mg tablet 2.5 mg PO BID PRN 03/27/20 09/07/22 paroxetine HCl 20 mg tablet 40 mg PO DAILY 03/27/20 09/07/22 estradiol 1 mg tablet 1 mg PO BID 06/10/21 09/07/22 cholecalciferol (vitamin D3) 50 50 mcg PO DAILY 11/21/21 09/07/22 mcg (2,000 unit) capsule metformin 500 mg tablet,extended 1,000 mg PO BID 11/21/21 09/07/22 release 24 hr nicotine 7 mg/24 hr daily 1 patch transdermal Q24H 11/21/21 09/07/22 transdermal patch dulaglutide 1.5 mg/0.5 mL 3 mg subcut QWEEK 12/18/21 09/07/22 subcutaneous pen injector (Trulicity) losartan 25 mg tablet 25 mg PO DAILY 12/18/21 09/07/22 hydrocortisone 2.5 % topical cream 1 applic topical QID #30 grams 12/31/21 09/07/22 naproxen 250 mg tablet 250 mg PO BID PRN 04/16/22 09/07/22 acetaminophen 500 mg capsule 1,000 mg PO Q8H PRN PRN #30 caps 05/13/22 09/07/22 hydromorphone 2 mg tablet 2 - 4 mg PO Q6H PRN pain #20 tabs 05/13/22 09/07/22 ibuprofen 600 mg tablet 600 mg PO TID #30 tabs 05/13/22 09/07/22 prednisone 10 mg tablet 10 mg PO DAILY #30 tabs 08/11/22 09/07/22 Previous Rx's Medication Instructions Recorded metoprolol succinate 50 mg 50 mg PO DAILY #30 tabs 03/21/19 tablet,extended release 24 hr aspirin 81 mg tablet,delayed 81 mg PO DAILY Prevent blood clot 09/30/19 release #14 tabs hydrocortisone 2.5 % topical cream 1 applic topical QID #30 grams 12/31/21 acetaminophen 500 mg capsule 1,000 mg PO Q8H PRN PRN #30 caps 05/13/22 hydromorphone 2 mg tablet 2 - 4 mg PO Q6H PRN pain #20 tabs 05/13/22 ibuprofen 600 mg tablet 600 mg PO TID #30 tabs 05/13/22 prednisone 10 mg tablet 10 mg PO DAILY #30 tabs 08/11/22 Allergies Allergy/AdvReac Type Severity Reaction Status Date / Time Penicillins Allergy Severe throat Verified 09/07/22 15:31 closes Sulfa (Sulfonamide Allergy Mild Hives Verified 09/07/22 15:31 Antibiotics) lactose AdvReac Diarrhea Verified 09/07/22 15:31 General Stated Complaint: RespSymp RENATO: 2 Review of Systems Narrative: Review of Systems Constitutional: negative Eyes: negative ENT: negative Cardiovascular: negative Respiratory: Shortness of breath Gastrointestinal: negative : negative Musculoskeletal: negative Skin: negative Neurologic: negative Psych: negative PFSH All Active Problems (Updated 09/07/22 @ 20:13 by Kolby Carter MD) Pulmonary edema (Acute) Acute respiratory distress (Acute) COVID-19 (Acute) Bilateral carpal tunnel syndrome (Acute) S/P R ECTR: 05/13/2022 Amplified musculoskeletal pain (Acute) Tendonitis of long head of biceps brachii of right shoulder (Acute) Bursitis of right shoulder (Acute) Traumatic tear of right rotator cuff (Acute) Calcific tendinitis of right shoulder (Acute) 40mg depo-medrol injection: 02/11/2022 Lateral epicondylitis of right elbow (Acute) 40mg depo-medrol injection: 02/11/2022 Hematest positive stools (Acute) CAD (coronary artery disease) (Chronic) mild non-obstructive disease [place] [facility] [place] Cardiomyopathy (Chronic) last echocardiogram 01/27/2019, LVEF 50-55%, no regional wall motion abnormalities, mild LVH, mild MR; normal RV size and function Bipolar disorder (Chronic) 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 (Acute 01/25/14) Atypical chest pain (Acute) Type 2 diabetes mellitus (Acute) DVT prophylaxis (Acute) Palpitations (Acute) Spell of altered consciousness (Acute) Elevated brain natriuretic peptide (BNP) level (Acute) Chest pain (Acute) Screening for colon cancer (Acute) Tobacco use (Acute) Fecal occult blood test positive (Acute) Medical History Acute kidney injury Anxiety 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 (01/25/14) Bursitis of left shoulder (~03/2019) Carpal tunnel syndrome, left Cervical radiculopathy bilateral Change in mental status Chronic migraine (03/07/15) Chronic pain syndrome Dehydration Depression Diabetes Discharge planning issues Dizziness, nonspecific Dyspnea Elbow fracture, right Fatigue Hyperlipidemia Hyperthyroidism Impingement syndrome of left shoulder (~03/2019) Lactose intolerance Left rotator cuff tear (~03/2019) Medication overuse headache (03/07/15) Migraine headache with aura (03/07/15) Migraine headache without aura (03/07/15) Morbid obesity Orthostasis Polycystic ovaries Shortness of breath Splenomegaly Suicidal ideation Tachycardia Tendinitis of long head of biceps brachii of left shoulder (~03/2019) Unresponsive episode Surgical History History of arthroscopy of left shoulder History of section x2 History of endometrial ablation Hx of cardiac catheterization 08/2021-no stent placed Previous back surgery S/P hysterectomy Social History Smoking/Tobacco Use Status: Current every day Tobacco Type: cigarettes Quit status: quit date established Smoking risk assessment performed?: Yes Alcohol Intake: never Drug use: Never Substance use type: does not use Number of Children: 3 Current gender identity: female What is your relationship status?: Panel score (0-1 are the most socially isolated patients): 0 What type of physical activity do you participate in: none Do you feel safe at home: Yes Do you feel safe in your relationship?: Yes Exam Narrative Exam Narrative: Physical Examination General: alert, awake, cooperative, in respiratory distress HEENT: normocephalic, atraumatic; PERRL, EOM intact, conjunctiva normal; no nasal discharge; moist mucous membranes, oral and pharyngeal mucosa normal, tolerating secretions Neck: supple, trachea midline; full ROM Chest: normal to inspection Respiratory: Lungs clear bilaterally moving good air no wheezes appreciated, however patient is tachypneic speaking in short sentences Cardiac: Tachycardia, regular rhythm, S1S2 intact, no murmurs rubs or gallops GI: abdomen soft, non-tender, non-distended; no palpable mass or hepatosplenomegaly Skin: no lesions, rashes or trauma appreciated Neuro: AAOx3, normal speech, moving all extremities Psych: Appropriate mood and affect Course Vital Signs Vital signs: Vital Signs Pulse 133 H 09/07/22 15:13 Blood Pressure 114/67 09/07/22 15:13 Pulse Oximetry 73 L 09/07/22 15:13 Pulse 133 H 09/07/22 15:13 Respiratory Effort Labored 09/07/22 15:29 Respiratory Depth Normal 09/07/22 15:29 Blood Pressure 114/67 09/07/22 15:13 Blood Pressure Position Sitting 09/07/22 15:13 Pulse Oximetry 73 L 09/07/22 15:13 Oxygen Delivery Method Room Air 09/07/22 15:13 Oxygen Flow Rate 0 09/07/22 15:13
[2022-09-07 15:43] LABS: BE -4 mmol/L (-2-3); HCO3 21 mmol/L (22-26); pCO2 40 mmHg (35-45); pH 7.34 (7.35-7.45); pO2 105 mmHg (80-105)
[2022-09-07] MEDS: Dexamethasone 10 MG/ML VIAL IVP (15:43)
[2022-09-07] MEDS: Albuterol/Ipratropium 3 ML UPD VIAL 9 ML UPD (15:43)
[2022-09-07 15:45] LABS: sO2 > 99 % (95-98)
[2022-09-07 15:47] LABS: FIO2 50 %; Site Left Radial
[2022-09-07 16:37] LABS: HGB 15.5 g/dL (11.2-15.7); MCH 35.2 pg (27.0-33.0); MCV 89 fL (80-95); Platelet Count 225 10^3/uL (130-400); RDW 13.4 % (11.7-14.6)
[2022-09-07 16:38] LABS: MCHC 39.7 % (32.0-36.0)
[2022-09-07 17:03] LABS: Absolute Eosinophil Count 0.11 10^3/uL (0.0-0.7); Absolute Lymphocyte Count 3.05 10^3/uL (1.2-3.4); Absolute Monocyte Count 0.63 10^3/uL (0.1-0.8); Absolute Neutrophil Count 6.72 10^3/uL (1.2-6.7); Bands % 7
[2022-09-07 17:04] LABS: Diff Comment Manual Differential; RBC Morphology Normal
[2022-09-07 17:07] LABS: ALT 31 U/L (14-59); Albumin 3.4 g/dL (3.4-5.0); Alkaline Phosphatase 99 U/L (46-116); BUN 12 mg/dL (7-18); Bilirubin, Total 0.9 mg/dL (0.2-1.0); CREATININE 0.9 mg/dL (0.55-1.02); Calcium 9.5 mg/dL (8.5-10.1); Chloride 96 mmol/L (98-107); Estimated GFR 79.35 (mL/min/1.73m2); NT-proBNP 156 pg/mL (<300); Potassium 3.9 mmol/L (3.5-5.1); Sodium 135 mmol/L (136-145); Total Protein 7.7 g/dL (6.4-8.2); Troponin I < 50 ng/L (<or=60)
[2022-09-07 17:08] LABS: COVID-19 PCR Negative (Negative); Influenza A PCR Negative (Negative); Influenza B PCR Negative (Negative); RSV PCR Negative (Negative)
[2022-09-07 17:14] LABS: Glucose 301 mg/dL (74-106)
[2022-09-07 17:26] LABS: AST 45 U/L (15-37)
[2022-09-07] MEDS: Omnipaque 350 MG/ML 100 ML BTL IJ (17:39)
[2022-09-07] MEDS: Normal Saline Flush 10 ML SYR IVP (17:41)
[2022-09-07] MEDS: Furosemide 100 MG/10 ML VIAL 80 MG IVP (18:03)
--- NOTE | 2022-09-07 18:27 | DI.VRAD_ITS ---
PROCEDURE INFORMATION: Exam: CTA Chest With Contrast Exam date and time: 09/07/2022 5:38 PM Age: 47 years old Clinical indication: Shortness of breath and other: Hypoxia TECHNIQUE: Imaging protocol: Computed tomographic angiography of the chest with contrast. 3D rendering (Not supervised by radiologist): MIP and/or 3D reconstructed images were created by the technologist. COMPARISON: CT CHEST PE CTA 03/09/2019 7:26 PM FINDINGS: Pulmonary arteries: Within the limits of the exam, no pulmonary embolism is identified. The small and distal pulmonary arteries are partially obscured by artifact from breathing motion and not well evaluated for diagnosis or exclusion of small or distal pulmonary emboli. Aorta: No thoracic aortic aneurysm or dissection. Thyroid: Thyroid gland partially excluded from view but grossly unremarkable through its visualized portion. Lungs: Diffuse symmetric hazy ground-glass opacity throughout both lungs with mild relative peripheral sparing. Moderately extensive superimposed patchy alveolar opacity. Pleural spaces: No pleural effusion or pneumothorax. Heart: Normal sized heart. Lymph nodes: Scattered mildly enlarged mediastinal and hilar lymph nodes, probably reactive given the appearance of the lungs. Diaphragm: Elevation of the right hemidiaphragm. Liver: Liver only partially visualized but suspected to be enlarged. Diffuse fatty infiltration of the visualized portion of the liver. Bones/joints: Lower ribs partially excluded from view and incompletely evaluated. Otherwise, no acute fracture seen among the bones of the chest. Spinal degenerative change with anterior osteophytes at multiple levels Soft tissues: No gross soft tissue mass or fluid collection seen in the chest wall. IMPRESSION: 1. Diffuse symmetrically distributed hazy ground-glass opacity throughout both lungs with relative peripheral sparing. Moderately extensive superimposed patchy alveolar opacity. Diffuse alveolar pulmonary edema is suspected although a diffuse pulmonary infection, hypersensitivity pneumonitis, or ARDS could have a similar appearance. Clinical correlation is recommended. 2. Liver only partially visualized but suspected to be enlarged. Diffuse fatty infiltration of the visualized portion of the liver. Dictated and Authenticated by: Chilo Dobson MD. Ordering:MATT Jarrett MD
--- NOTE | 2022-09-07 21:07 | W.PM.HP.N ---
Date of service: 09/07/22 Time of Service: 21:14 Assessment and Plan Assessment and plan (1) Pulmonary edema: Start date: 09/07/22 Status: Acute Assessment and plan: This is a 47-year-old lady who has an extensive history of cardiomyopathy since 2012 who presents off diuretics and what appears to be pulmonary edema. Oddly her BNP is normal and this appears to be an acute process with hypoxemia. Infectious etiology is a possibility she was covered with IV antibiotic therapy while assessing her response to IV diuretic. 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 She does not appear to be having bronchospasm but will continue HFA/Nebulizers as needed. She was a previous smoker. She is more comfortable after 80 mg IV Lasix and this will be continued at 40 mg twice daily watching for overdiuresis. She has had no weight gain or peripheral edema. She appears to have pulmonary hypertension with her last cardiac catheterization by verbal report from the ED physician after speaking with [facility] cardiology (see ED per report on the physicians who discussed case at [facility] ICU). Patient is a full code. (2) Acute respiratory failure with hypoxia: Start date: 09/07/22 Status: Acute Assessment and plan: Patient is post COVID and this could be an infectious etiology but is appearing to respond to treatment for pulmonary edema with fluid overload. Continue IV furosemide 40 mg twice daily and initiate Rocephin 1 g IV daily with doxycycline 100 mg twice daily. Patien's WBC was not elevated and procalcitonin was negative as well. These go against infectious etiology though we will cover for now. (3) Cardiomyopathy: Status: Chronic Assessment and plan: Patient has tachycardia with what appears to be pulmonary edema off diuretics. Magnesium was low as well and will be repleted with IV magnesium 4 g with follow-up and continue supplement if needed. She is a full code. Repeat echocardiogram may be warranted. Troponins will be trended and have been negative. (4) Pulmonary hypertension: Status: Chronic Assessment and plan: By history verbally reported from [facility] cardiology when reviewed case in the ED. This may be contributing to flash pulmonary edema with diastolic dysfunction. Follow-up echocardiogram and continue IV Lasix. (5) CAD (coronary artery disease): Status: Chronic Assessment and plan: No evidence of acute ischemia with troponins to be trended and cardiac monitoring. Advance beta-blockade with tachycardia if blood pressure allows. Patient had nonocclusive disease by recent cardiac catheterization but will continue on outpatient medical therapy advance beta-roxana as mentioned. Qualifiers: Associated angina: without angina Coronary Disease-Associated Artery/Lesion type: ambler artery [place] vs. transplanted heart: ambler heart Qualified Code(s): I25.10 - Atherosclerotic heart disease of ambler coronary artery without angina pectoris (6) Type 2 diabetes mellitus: Status: Chronic Assessment and plan: Hold outpatient medical therapy and treat glucometers before meals and at bedtime with short acting insulin coverage. Qualifiers: Diabetes mellitus complication status: without complication Diabetes mellitus long term care phlebotomist insulin use: without long term care phlebotomist use Qualified Code(s): E11.9 - Type 2 diabetes mellitus without complications History of Present Illness History of Present Illness Chief Complaint: Cough with shortness of breath Narrative: This is a 47-year-old female patient who has a history of cardiomyopathy with cardiac catheterization in 2012 which showed mild obstructive disease and repeat cardiac catheterization at the end of 2020 at which time she still showed nonocclusive disease and her diuretic has been stopped. She presented to the ED with increasing shortness of breath with exertion and then at rest and exertion for few days prior to this admission. She had no history of weight gain or peripheral edema. She reported to the ED with what appeared to be pulmonary edema by imaging though her BNP was normal and her troponins were negative. She did respond to IV diuretics with 80 mg Lasix given and good diuresis with hypoxemia persisting requiring CPAP with high FiO2 oxygen supplementation. In time she will come off BiPAP her pulse ox will drop in the 70% range. At the time I interviewed her she was comfortable and talking through the CPAP. Of significance is a history of COVID-19 infection with pneumonia and May 2022 which she has had prolonged symptoms with slow recovery but was never hospitalized. The patient had no wheezing was speaking in short sentences with her shortness of breath when first arriving to the ED. She was speaking more clearly though through the CPAP at the time I saw her. With BiPAP and O2 supplementation her pulse oximetry in the mid 90% range. CT of the chest did reveal groundglass opacities suspicious for inflammation or fluid overload with also having curly B-lines suggesting pulmonary edema. As stated she did respond to IV diuretics and this will be continued. She had been off diuretics for the entire year 2021 by history. She denied any chest pain or palpitations though she was persisting with tachycardia. Because of possibility of infection and exacerbation of respiratory status patient was given dexamethasone, currently being on prednisone as an outpatient she will need stress steroid treatment if not steroids for possible COPD exacerbation though she has no evidence of bronchospasm. She also was With IV antibiotic therapy as a possibility of infection. Review of Systems Narrative: 13 point review of systems otherwise unrevealing or stable. PFSH All Active Problems (Updated 09/07/22 @ 22:02 by Nikhil Conner) Pulmonary hypertension (Chronic) Acute respiratory failure with hypoxia (Acute) Pulmonary edema (Acute) Acute respiratory distress (Acute) COVID-19 (Acute) Bilateral carpal tunnel syndrome (Acute) S/P R ECTR: 05/13/2022 Amplified musculoskeletal pain (Acute) Tendonitis of long head of biceps brachii of right shoulder (Acute) Bursitis of right shoulder (Acute) Traumatic tear of right rotator cuff (Acute) Calcific tendinitis of right shoulder (Acute) 40mg depo-medrol injection: 02/11/2022 Lateral epicondylitis of right elbow (Acute) 40mg depo-medrol injection: 02/11/2022 Hematest positive stools (Acute) CAD (coronary artery disease) (Chronic) mild non-obstructive disease per cardiac cath report from [facility] 09/07/2013, more recent repeat cath unchanged but with pulmonary HTN Cardiomyopathy (Chronic) last echocardiogram 01/27/2019, LVEF 50-55%, no regional wall motion abnormalities, mild LVH, mild MR; normal RV size and function Bipolar disorder (Chronic) 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 (Acute 01/25/14) Atypical chest pain (Acute) Type 2 diabetes mellitus (Chronic) DVT prophylaxis (Acute) Palpitations (Acute) Spell of altered consciousness (Acute) Elevated brain natriuretic peptide (BNP) level (Acute) Chest pain (Acute) Screening for colon cancer (Acute) Tobacco use (Acute) Fecal occult blood test positive (Acute) Medical History Acute kidney injury Anxiety 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 (01/25/14) Bursitis of left shoulder (~03/2019) Carpal tunnel syndrome, left Cervical radiculopathy bilateral Change in mental status Chronic migraine (03/07/15) Chronic pain syndrome Dehydration Depression Diabetes Discharge planning issues Dizziness, nonspecific Dyspnea Elbow fracture, right Fatigue Hyperlipidemia Hyperthyroidism Impingement syndrome of left shoulder (~03/2019) Lactose intolerance Left rotator cuff tear (~03/2019) Medication overuse headache (03/07/15) Migraine headache with aura (03/07/15) Migraine headache without aura (03/07/15) Morbid obesity Orthostasis Polycystic ovaries Shortness of breath Splenomegaly Suicidal ideation Tachycardia Tendinitis of long head of biceps brachii of left shoulder (~03/2019) Unresponsive episode Surgical History History of arthroscopy of left shoulder History of section x2 History of endometrial ablation Hx of cardiac catheterization 08/2021-no stent placed Previous back surgery S/P hysterectomy Social History Smoking/Tobacco Use Status: Current every day Tobacco Type: cigarettes Quit status: quit date established Smoking risk assessment performed?: Yes Alcohol Intake: never Drug use: Never Substance use type: does not use Number of Children: 3 Current gender identity: female What is your relationship status?: Panel score (0-1 are the most socially isolated patients): 0 What type of physical activity do you participate in: none Do you feel safe at home: Yes Do you feel safe in your relationship?: Yes Meds Allergies and Home Medications Allergies Allergy/AdvReac Type Severity Reaction Status Date / Time Penicillins Allergy Severe throat Verified 09/07/22 15:31 closes Sulfa (Sulfonamide Allergy Mild Hives Verified 09/07/22 15:31 Antibiotics) lactose AdvReac Diarrhea Verified 09/07/22 15:31 Home Medications Medication Instructions Recorded Confirmed Type rosuvastatin 5 mg tablet (Crestor) 10 mg PO QPM 06/28/13 09/07/22 History riboflavin (vitamin B2) 50 mg 200 mg PO BID 03/13/15 09/07/22 History tablet (Vitamin B-2) levothyroxine 25 mcg tablet 50 mcg PO HS 03/05/17 09/07/22 History (Synthroid) magnesium oxide 400 mg (241.3 mg 800 mg PO BID 03/05/17 09/07/22 History magnesium) tablet pregabalin 75 mg capsule (Lyrica) 100 mg PO TID 03/06/17 09/07/22 History vitamin B12 500 mcg-folic acid 400 1 ea PO DAILY 03/11/17 09/07/22 History mcg tablet albuterol sulfate 90 mcg/actuation 2 puff inhalation QID PRN 03/10/19 09/07/22 History aerosol inhaler (Ventolin HFA) naloxone 4 mg/actuation nasal 1 spray intranasal ONCE PRN 03/10/19 09/07/22 History spray (Narcan) omeprazole 20 mg capsule,delayed 20 mg PO DAILY 03/10/19 09/07/22 History release prochlorperazine maleate 10 mg 10 mg PO DAILY PRN Headache 03/10/19 09/07/22 History tablet metoprolol succinate 50 mg 50 mg PO DAILY #30 tabs 03/21/19 09/07/22 Rx tablet,extended release 24 hr valacyclovir 1 gram tablet 500 mg PO QHS 03/21/19 09/07/22 History lamotrigine 100 mg tablet,extended 100 mg PO HS 09/28/19 09/07/22 History release 24 hr aspirin 81 mg tablet,delayed 81 mg PO DAILY Prevent blood clot 09/30/19 09/07/22 Rx release #14 tabs polyethylene glycol 3350 17 17 g PO DAILY PRN 12/22/19 09/07/22 History gram/dose oral powder naratriptan 2.5 mg tablet 2.5 mg PO BID PRN 03/27/20 09/07/22 History paroxetine HCl 20 mg tablet 40 mg PO DAILY 03/27/20 09/07/22 History estradiol 1 mg tablet 1 mg PO BID 06/10/21 09/07/22 History cholecalciferol (vitamin D3) 50 50 mcg PO DAILY 11/21/21 09/07/22 History mcg (2,000 unit) capsule metformin 500 mg tablet,extended 1,000 mg PO BID 11/21/21 09/07/22 History release 24 hr nicotine 7 mg/24 hr daily 1 patch transdermal Q24H 11/21/21 09/07/22 History transdermal patch dulaglutide 1.5 mg/0.5 mL 3 mg subcut QWEEK 12/18/21 09/07/22 History subcutaneous pen injector (Trulicity) losartan 25 mg tablet 25 mg PO DAILY 12/18/21 09/07/22 History hydrocortisone 2.5 % topical cream 1 applic topical QID #30 grams 12/31/21 09/07/22 Rx naproxen 250 mg tablet 250 mg PO BID PRN 04/16/22 09/07/22 History acetaminophen 500 mg capsule 1,000 mg PO Q8H PRN PRN #30 caps 05/13/22 09/07/22 Rx hydromorphone 2 mg tablet 2 - 4 mg PO Q6H PRN pain #20 tabs 05/13/22 09/07/22 Rx ibuprofen 600 mg tablet 600 mg PO TID #30 tabs 05/13/22 09/07/22 Rx prednisone 10 mg tablet 10 mg PO DAILY #30 tabs 08/11/22 09/07/22 Rx Exam Narrative Exam Narrative: General: Patient appears older than stated age, she is obese only over the abdomen otherwise appears thin over her extremities and upper body, alert and oriented to person, place and time. She is no acute distress on CPAP. She is lying in bed with a head at operative 45 degree angle. HEENT: Normocephalic, eyes with pupils equal and reactive to light symmetrically, extraocular movement intact and sclera anicteric. Oral mucosa dry with fair dentition. Neck: Supple without JVD. Back: Stooped posture without CVA tenderness. Lungs: Fair aeration and clear to auscultation and percussion with no focalizing rales or rhonchi. No expiratory wheeze or increased expiratory phase. Heart: Tachycardic with no murmurs or gallops appreciated. No rubs. Breast: Exam deferred. Abdomen: Obese contour, soft and nontender to palpation with no palpable hepatosplenomegaly. Genitalia/rectal: Exam deferred. Extremities: Without clubbing, cyanosis or pitting edema. Patient had muscle atrophy over lower extremities and upper extremities. Fair capillary refill. Skin: Normal color, warm and dry. Patient is tanned over sun exposed areas. Neuro: Cranial nerves II to XII gross intact, no focalized motor deficits or tremor. Psych: Flattened affect with depressed mood, no abnormal thought processes. Remote and recent memory appear grossly intact. Results Imaging Imaging Studies: Exam: CTA Chest With Contrast Exam date and time: 09/07/2022 5:38 PM Age: 47 years old Clinical indication: Shortness of breath and other: Hypoxia TECHNIQUE: Imaging protocol: Computed tomographic angiography of the chest with contrast. 3D rendering (Not supervised by radiologist): MIP and/or 3D reconstructed images were created by the technologist. COMPARISON: CT CHEST PE CTA 03/09/2019 7:26 PM FINDINGS: Pulmonary arteries: Within the limits of the exam, no pulmonary embolism is identified. The small and distal pulmonary arteries are partially obscured by artifact from breathing motion and not well evaluated for diagnosis or exclusion of small or distal pulmonary emboli. Aorta: No thoracic aortic aneurysm or dissection. Thyroid: Thyroid gland partially excluded from view but grossly unremarkable through its visualized portion. Lungs: Diffuse symmetric hazy ground-glass opacity throughout both lungs with mild relative peripheral sparing. Moderately extensive superimposed patchy alveolar opacity. Pleural spaces: No pleural effusion or pneumothorax. Heart: Normal sized heart. Lymph nodes: Scattered mildly enlarged mediastinal and hilar lymph nodes, probably reactive given the appearance of the lungs. Diaphragm: Elevation of the right hemidiaphragm. Liver: Liver only partially visualized but suspected to be enlarged. Diffuse fatty infiltration of the visualized portion of the liver. Bones/joints: Lower ribs partially excluded from view and incompletely evaluated. Otherwise, no acute fracture seen among the bones of the chest. Spinal degenerative change with anterior osteophytes at multiple levels Soft tissues: No gross soft tissue mass or fluid collection seen in the chest wall. IMPRESSION: 1. Diffuse symmetrically distributed hazy ground-glass opacity throughout both lungs with relative peripheral sparing. Moderately extensive superimposed patchy alveolar opacity. Diffuse alveolar pulmonary edema is suspected although a diffuse pulmonary infection, hypersensitivity pneumonitis, or ARDS could have a similar appearance. Clinical correlation is recommended. 2. Liver only partially visualized but suspected to be enlarged. Diffuse fatty infiltration of the visualized portion of the liver. Labs Result diagrams: 09/07/22 15:30 09/07/22 15:30 Labs: Laboratory Results - last 24 hr 09/07/22 09/07/22 09/07/22 15:30 15:30 15:30 WBC 10.50 RBC 4.40 Hgb 15.5 Hct 39.0 MCV 89 MCH 35.2 H MCHC 39.7 H RDW 13.4 Plt Count 225 MPV Immature Gran % See Differential Neutrophils % 57.0 Band Neutrophils % 7 Lymphocytes % 29.0 Monocytes % 6.0 Eosinophils % 1.0 Basophils % 0.0 Absolute Neutrophils 6.72 H Absolute Lymphocytes 3.05 Absolute Monocytes 0.63 Absolute Eosinophils 0.11 Absolute Basophils 0.00 RBC Morphology Normal PT Not Applicable INR APTT ABG Sample Site ABG pH ABG pCO2 ABG pO2 ABG HCO3 ABG Total CO2 ABG O2 Saturation ABG Base Excess VBG pH VBG pCO2 VBG pO2 VBG HCO3 VBG Total CO2 VBG O2 Saturation VBG Base Excess Oxygen Liter Flow FiO2 Sodium 135 L Potassium 3.9 Chloride 96 L Carbon Dioxide Anion Gap Not Applicable BUN 12 Creatinine 0.9 Est GFR (CKD-EPI 2020) 79.35 Glucose 301 H Calcium 9.5 Total Bilirubin 0.9 AST 45 H ALT 31 Alkaline Phosphatase 99 Troponin I < 50 NT-Pro-B Natriuret Pep 156 Total Protein 7.7 Albumin 3.4 COVID-19 Source SARS-CoV-2 (PCR) Influenza Type A (PCR) Influenza Type B (PCR) RSV (PCR) 09/07/22 09/07/22 09/07/22 15:33 15:36 15:40 WBC RBC Hgb Hct MCV MCH MCHC RDW Plt Count MPV Immature Gran % Neutrophils % Band Neutrophils % Lymphocytes % Monocytes % Eosinophils % Basophils % Absolute Neutrophils Absolute Lymphocytes Absolute Monocytes Absolute Eosinophils Absolute Basophils RBC Morphology PT INR APTT ABG Sample Site Left Radial ABG pH 7.34 L ABG pCO2 40 ABG pO2 105 ABG HCO3 21 L ABG Total CO2 ABG O2 Saturation > 99 H ABG Base Excess -4 L VBG pH Cancelled VBG pCO2 Cancelled VBG pO2 Cancelled VBG HCO3 Cancelled VBG Total CO2 Cancelled VBG O2 Saturation Cancelled VBG Base Excess Cancelled Oxygen Liter Flow BIPAP 10/5 FiO2 50 Sodium Potassium Chloride Carbon Dioxide Anion Gap BUN Creatinine Est GFR (CKD-EPI 2020) Glucose Calcium Total Bilirubin AST ALT Alkaline Phosphatase Troponin I NT-Pro-B Natriuret Pep Total Protein Albumin COVID-19 Source Not Applicable SARS-CoV-2 (PCR) Negative Influenza Type A (PCR) Negative Influenza Type B (PCR) Negative RSV (PCR) Negative Last Vital Signs Temp 36.5 C 09/07/22 15:13 Pulse 128 H 09/07/22 18:31 Resp 35 H 09/07/22 18:40 BP 133/72 09/07/22 18:31 Pulse Ox 95 09/07/22 18:40
[2022-09-07 22:39] LABS: Procalcitonin 0.2 ng/mL
[2022-09-07] MEDS: cefTRIAXone 1 GM/50 ML BAG IVPB (23:33)
[2022-09-07] MEDS: Hydrocortisone SOD SUC. 100 MG VIAL IVP (23:38)
[2022-09-07 23:39] LABS: Source Nasopharynx
[2022-09-07] MEDS: Enoxaparin 40 MG/0.4 ML SYR SC (23:41)
[2022-09-07] MEDS: Levothyroxine 25 MCG TAB 50 MCG PO (23:42)
[2022-09-07] MEDS: Metoprolol 12.5 MG TAB PO (23:42)
[2022-09-07] MEDS: valACYclovir 500 MG TAB PO (23:43)
[2022-09-08] VITALS (106 sets, daily range): BP systolic 49–184; BP diastolic 25–112; PULSE 77–150; RESP 10–52; TEMP 35.6–36.9; O2SAT 85–97
--- NOTE | 2022-09-08 | DI.US_ITS ---
APPROVED REPORT EXAM: Comprehensive 2D, Doppler, and color-flow Echocardiogram Patient Location: In-Patient Room/Bed: JXE341 Concrete Worker: Tahmina Beltran RDCS (AE) Indications: Resp Failure, CAD, Dil CM Other Information Study Quality: Adequate. Technically limited study due to inability to position patient bedside supin e. Conclusion Normal left ventricular wall thickness and chamber size. Estimated ejection fraction is 50 to 55%. Segmental wall motion could not be accurately assessed Right ventricle appears grossly normal in size Both atria are normal in size Trileaflet aortic valve without stenosis or regurgitation Normal mitral valve with trace regurgitation Normal tricuspid valve with moderate regurgitation. Estimated right ventricular systolic pressure is 67 mmHg Wall motion Left Ventricle The left ventricle is normal size. The overall left ventricular systolic function appears normal. The re is normal left ventricular wall thickness. There is no ventricular septal defect visualized. LVEF is 54%. Right Ventricle The right ventricle is normal size. Right ventricular systolic function could not be assessed. The RV SP is 67.3mmHg. Atria The left atrium size is normal. The right atrium size is normal. The interatrial septum is intact wit h no evidence for an atrial septal defect. Aortic Valve The aortic valve is normal in structure. Aortic valve is trileaflet. There is no aortic valvular sten osis. No aortic regurgitation is present. Mitral Valve The mitral valve is normal in structure. No evidence of mitral valve stenosis. Trace mitral regurgita tion. Tricuspid Valve The tricuspid valve is normal in structure. There is no tricuspid valve stenosis. Moderate tricuspid regurgitation. Pulmonic Valve The pulmonary valve is normal in structure. There is no pulmonic valvular stenosis. Trace pulmonic re gurgitation. Great Vessels The aortic root is normal in size. The ascending aorta is normal in size. IVC is normal in size and c ollapses >50% with inspiration. Pericardium There is no pericardial effusion. 2D Dimensions IVSD d PLAX 1.04 cm F: 0.6-1.0 LVPW d PLAX 1.02 cm F: 0.6 - 1.0 LVID d PLAX 4.68 cm F: 3.8 - 5.2 LVDs 3.35 cm F: 2.2 - 3.5 Ao Root d 2.40 cm F: 2.7 - 3.3 Ao Asc Diam d 3.20 cm F: 2.3 - 3.1 LV EF Teichholz 54.0 % FS 27.85 % LV Diastology MV E' lateral 0.139 (>0.1 m/s) Aortic Valve LVOT Area 2.92 cm2 AoV Area Vmax 2.45 cm2 LVOT Vmax 1.11 m/s AoV Area/ BSA (Vmax) 1.20 cm2/m2 LVOT Mean Jorge A. 0.69 m/s WILLIAM Mean Jorge A. 2.16 cm2 LVOT Peak Grad 4.9 mmHg WILLIAM Mean Jorge A. Index 1.06 cm2/m2 LVOT Mean Grad 2.3 mmHg LVOT VTI 0.163 m LVOT Diam s 1.90 cm AoV Vmax 1.32 m/s Velocity Ratio 0.84 AoV Mean Jorge A. 0.93 m/s AoV Peak Grad 7.0 mmHg LVOT SV 47.67 mL AoV Mean Grad 3.8 mmHg AoV VTI 0.215 m AoV Area VTI 2.21 cm2 AoV Area/ BSA (VTI) 1.08 cm/m2 Pulmonary Valve PV Vmax 1.23 (0.5-1.5 m/s) RVOT Peak Gr. 2.42 mmHg PV Peak Grad 6.0 mmHg RVOT Mean Gr. 1.20 mmHg PV Mean Grad 2.9 mmHg RVOT VTI 0.160 m PV VTI 0.196 m RVOT Vmax 0.78 m/s Tricuspid Valve TR Peak Grad 64.2 mmHg TR Vmax 4.01 m/s RA Pressure 3.00 mmHg RVSP (TR) 67.3 mmHg
[2022-09-08] MEDS: Normal Saline Flush 10 ML SYR IVP ×3 (00:08→21:30)
[2022-09-08] MEDS: Insulin Aspart 300 UNITS/3 ML PEN SC ×4 (00:25→17:39)
[2022-09-08] MEDS: DOXYCYCLINE 100 MG in Normal Saline 100 ML IVPB ×2 (00:25→12:42)
[2022-09-08 01:45] LABS: Magnesium 1.4 mg/dL (1.8-2.4)
[2022-09-08 01:55] LABS: Troponin I < 50 ng/L (<or=60)
[2022-09-08] MEDS: MAGNESIUM SULFATE 4 GM/100 ML BAG IVPB (02:43)
[2022-09-08] MEDS: Albuterol 2.5 MG/3 ML INH SOLN VIAL UPD (02:43)
[2022-09-08 04:35] LABS: Bilirubin Negative (Negative); Blood Negative (Negative); Clarity Sl Cloudy (Clear); Glucose 500 mg/dL (Negative); Ketones 80 mg/dL (Negative); Leukocyte Esterase Negative (Negative); Nitrite Negative (Negative); Specific Gravity >= 1.030 (1.005-1.025); Urobilinogen 0.2 EU/dL (Up TO 0.2); pH 5.5 (5-8)
[2022-09-08 05:16] LABS: Bacteria Few HPF (Negative); C & S Indicated? No; Crystals Negative HPF (Negative); Epithelial Cells Few HPF (Negative); Mucus Negative (Negative); RBC 0-2 HPF (0-2); WBC 0-2 HPF (0-5)
[2022-09-08] MEDS: Metoprolol 12.5 MG TAB PO ×2 (06:09→14:02)
[2022-09-08] MEDS: Hydrocortisone SOD SUC. 100 MG VIAL IVP ×3 (06:09→22:28)
[2022-09-08 07:11] LABS: HCT 40.1 % (36.0-46.0); MCV 90 fL (80-95); MPV 11.2 fL (8.0-11.0); Platelet Count 277 10^3/uL (130-400); RBC 4.45 10^6/uL (3.93-5.22); RDW-SD 45.4 fL; WBC 15.45 10^3/uL (4.4-10.8)
[2022-09-08 08:22] LABS: ALT 27 U/L (14-59); AST 81 U/L (15-37); Alkaline Phosphatase 86 U/L (46-116); Anion Gap 18.2 mmol/L (3-11); BUN 11 mg/dL (7-18); Bilirubin, Total 0.5 mg/dL (0.2-1.0); CO2 18.8 mmol/L (21.0-32.0); CREATININE 0.9 mg/dL (0.55-1.02); Calcium 9.4 mg/dL (8.5-10.1); Chloride 104 mmol/L (98-107); Estimated GFR 79.35 (mL/min/1.73m2); Glucose 363 mg/dL (74-106); Magnesium 2.3 mg/dL (1.8-2.4); Potassium 4.6 mmol/L (3.5-5.1); Sodium 141 mmol/L (136-145); Total Protein 7.2 g/dL (6.4-8.2)
[2022-09-08 08:30] LABS: TSH (W/Ref FT4) 0.37 uIU/mL (0.36-3.74); Troponin I < 50 ng/L (<or=60)
--- NOTE | 2022-09-08 08:46 | PDOC.CMIN ---
- If Service Date Differs Date of service: 09/08/22 Time of Service: 08:46 Care Management Initial Assess REASON FOR HOSPITALIZATION:: Pulmonary edema, hypoxic respiratory failure PAST MEDICAL HISTORY/PAST SURGICAL HISTORY:: Medical History . Acute kidney injury. Anxiety. 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 control (01/25/14). Bursitis of left shoulder (~03/2019). Carpal tunnel syndrome, left. Cervical radiculopathy. bilateral. Change in mental status. Chronic migraine (03/07/15). Chronic pain syndrome. Dehydration. Depression. Diabetes. Discharge planning issues. Dizziness, nonspecific. Dyspnea. Elbow fracture, right. Fatigue. Hyperlipidemia. Hyperthyroidism. Impingement syndrome of left shoulder (~03/2019). Lactose intolerance. Left rotator cuff tear (~03/2019). Medication overuse headache (03/07/15). Migraine headache with aura (03/07/15). Migraine headache without aura (03/07/15). Morbid obesity. Orthostasis. Polycystic ovaries. Shortness of breath. Splenomegaly. Suicidal ideation. Tachycardia. Tendinitis of long head of biceps brachii of left shoulder (~03/2019). Unresponsive episode. Surgical History . History of arthroscopy of left shoulder. History of section. x2. History of endometrial ablation. Hx of cardiac catheterization. 08/2021-no stent placed. Previous back surgery. S/P hysterectomy PREVIOUS FUNCTIONAL STATUS/SOCIAL/FAMILY SUPPORTS:: Resides in [facility] with her family, independent at baseline in the community. CURRENT FUNCTIONAL STATUS:: Critically ill, per MD transfer is being sought. ADVANCE DIRECTIVES:: Paperwork provided. Has patient been provided with info about the portal/API?: Yes Did the patient sign up for the portal?: Yes CODE STATUS:: Full Code INSURANCE COVERAGE / FINANCIAL ISSUES:: Medicare. Medicaid CURRENT HOME/COMMUNITY SERVICES/EQUIPMENT:: None at this time. PRIMARY CARE PHYSICIAN:: Edie Ellis POTENTIAL DISCHARGE NEEDS:: Follow up appointments. PATIENT/FAMILY EDUCATION NEEDS:: Review discharge instructions, discuss Ask Me Three. ANTICIPATED BARRIERS TO DISCHARGE:: None identified. TRANSPORTATION:: Via private vehicle with family. PLAN:: Jammie will discharge home when ready per MD. No additional services anticipate at this time. She will follow up with her PCP and plan of care as prescribed. CM continues to follow.
[2022-09-08 08:57] LABS: Diff Comment Manual Differential
[2022-09-08 08:58] LABS: Absolute Lymphocyte Count 1.08 10^3/uL (1.2-3.4); Absolute Monocyte Count 0.15 10^3/uL (0.1-0.8); Absolute Neutrophil Count 14.21 10^3/uL (1.2-6.7); Atypical Lymphocytes % 0; Bands % 18
[2022-09-08 08:59] LABS: RBC Morphology Normal
[2022-09-08 09:11] LABS: BE (Venous) -4 mmol/L (-2-3); HCO3 (Venous) 21 mmol/L (23-28); pCO2 (Venous) 37 mmHg (41-51); pH (Venous) 7.37 (7.31-7.41); pO2 (Venous) 100 mmHg
[2022-09-08] MEDS: PARoxetine 20 MG TAB 40 MG PO (09:54)
[2022-09-08] MEDS: Magnesium Oxide 400 MG TAB 800 MG PO (09:54)
[2022-09-08] MEDS: Estradiol 1 MG TAB PO (09:54)
[2022-09-08] MEDS: Aspirin E.C. 81 MG TABEC PO (09:55)
[2022-09-08] MEDS: Losartan 25 MG TAB PO (09:55)
[2022-09-08] MEDS: Omeprazole 20 MG CAPCR PO (09:55)
[2022-09-08] MEDS: Pregabalin 100 MG CAP PO ×2 (09:55→14:02)
[2022-09-08] MEDS: Prochlorperazine 10 MG/2 ML VIAL IVP (10:18)
[2022-09-08] MEDS: MORPHine 2 MG/ML SYR IVP ×2 (12:23→22:53)
[2022-09-08] MEDS: Furosemide 40 MG/4 ML VIAL IVP ×2 (14:01→16:22)
--- NOTE | 2022-09-08 17:55 | ANES.AIR_ITS ---
Airway Management Note Procedure Date and Time DO NOT use this note for patients in the OR, Use Intraop Record Instead Date Performed: 09/08/22 Procedure Time: 18:17 Procedure Location Procedure Location: Intensive Care Unit (Formerly named [facility]) Requesting Provider: Kolby Yuan Number of Previous Intubation attempts by other providers: 0 Procedure Type Procedure Type: Elective Pre-Induction Setup Sterility: Hand Hygiene, Surgical Cap and Surgical Mask Preinduction Setup: Standard monitors applied, BVM at bedside, Suction ready, Airway equipment ready, Medications ready, IV/IO access patent & flowing and Post induction medications ready Induction Induction Time: 18:19 Induction setup: Pt. evaluated prior to induction, Pt. Ramped, Head of Bed Elevated, Apneic Oxygenation, BiPAP/CPAP, Delayed Sequence Induction and Cricoid Pressure Applied Induction Medications (Indicate Dose Given): Lidocaine 2% IV Dose:: 100 mg, Propofol IV Dose:: 200 mg and Rocuronium IV Dose:: 50 mg Mask Ventilation: Easy and BiPAP/CPAP/Ventilator Used (for preoxygenation) Airway Device Airway Type: Intubation Laryngoscopy: Atraumatic Laryngoscopy, Teeth Intact and Poor Dentition Airway Grade: 2a Airway Blades: Glidescope 3 Endotracheal Tube: Oral, Cuffed and 7.5mm ETT Depth Where Secured (cm): 21 Placement Confirmation: Cuff inflated with minimally occlusive pressure, Secured with commercial device, Bilateral breath sounds, ETCO2 waveform present and Depth to teeth Number of Attempts (See previous attempts in note section): 1 Post Induction Management Post Induction Medications (Indicate Dose Given): Managed by Requesting Provider Gastric Tube Gastric Tube: Placed by Anesthesia Gastric Tube Placement: Oral Tube Size (Fr): 18 Depth Secured (cm): 65 Procedure Complications Procedure Complications: None Procedure Outcome Procedure Outcome: Successful Procedure Comment: NPO time, water 1 hour ago. No food. Proceduralist Performed By: Nikhil Oliva
--- NOTE | 2022-09-08 18:16 | DSE_ITS ---
Date of service: 09/08/22 Time of Service: 18:16 DS: Diagnosis Discharge Diagnosis (1) Pulmonary edema: Status: Acute Asessment and Plan: Ground glass opacities on CT chest, no no peripheral edema, wt gain or elevated BNP. Diuresing without improvement in tachypnea. (2) Acute respiratory failure with hypoxia: Status: Acute Asessment and Plan: Required Noninvasive vent. support initially. However, she remained significantly tachypneic with RR in the low 40's. She was oxygenating well w/o any pH disturbance. For Transportation reasons and the concern that she would not be able to maintain adequate ventilation with the level of tachypnea she was experiencing, anesthesia intubated patient. Echocardiogram showed an EF of 50-55%. RVSP elevated at 67. No dilated cardiomyopathy noted. Segmental wall motion could not be accurately assessed; d/t inability to position patient adequately. (3) Cardiomyopathy: Status: Chronic Asessment and Plan: As above. (4) Pulmonary hypertension: Status: Chronic Asessment and Plan: RVSP of 67mmHg. Known h/o pulmonary hypertension. (5) CAD (coronary artery disease): Status: Chronic Asessment and Plan: No troponin elevations or EKG findings of concern other than possible evidence of right heart strain (poor r wave progression). (6) Type 2 diabetes mellitus: Status: Chronic Asessment and Plan: Exacerbated by steroids. Initially on hydrocortisone 100mg IV Q8H. This was stopped and now on prednisone 40mg daily. Pt on 10mg daily routinely. Basal/bolus insulin. Discharge Plan Disposition Patient Disposition: [facility] Condition: Serious Discharge Details Reason For Visit: Pulmonary Edema,Hpoxic Respiratory Failure Admit Date/Time: 09/07/22 20:19 Admit Provider: Nikhil Conner Attending Provider: Nikhil Conner Primary Care Provider: Edie Ellis [facility] Course Hospital Course: Initial Presentation: This is a 47-year-old female patient who has a history of cardiomyopathy with cardiac catheterization in 2012 which showed mild obstructive disease and repeat cardiac catheterization at the end of 2020 at which time she still showed nonocclusive disease and her diuretic has been stopped.? She presented to the ED with increasing shortness of breath with exertion and then at rest and exertion for few days prior to this admission.? She had no history of weight gain or peripheral edema.? She reported to the ED with what appeared to be pulmonary edema (ground glass opacities on CTA chest) though her BNP was normal and her troponins were negative.? She did respond to IV diuretics with 80 mg Lasix given and good diuresis but with hypoxemia and tachypnea persisting requiring CPAP with high FiO2 oxygen supplementation.?When off BiPAP her pulse ox dropped in the 70% range.? At the time hospitalist interviewed her she was comfortable and talking through the CPAP.? Of significance is a history of COVID-19 infection with pneumonia and May 2022 which she has had prolonged symptoms with slow recovery but was never hospitalized.? The patient had no wheezing and was speaking in short sentences.? With BiPAP and O2 supplementation her pulse oximetry was in the mid 90% range.? Again, CT of the chest did reveal groundglass opacities suspicious for inflammation or fluid overload with also having curly B-lines suggesting pulmonary edema.? She had been off diuretics for the entire year 2021 by history.? She denied any chest pain or palpitations. Because of possibility of infection and exacerbation of respiratory status patient was given dexamethasone, currently being on prednisone as an outpatient she will need stress steroid treatment if not steroids for possible COPD exacerbation though she has no evidence of bronchospasm.? She also was With IV antibiotic therapy as a possibility of infection; ceftriaxone and doxycycline. See Diagnosis: Home Meds and New Rx's Prescriptions: No Action metoprolol succinate 50 mg tablet extended release 24 hr 50 mg PO DAILY Qty: 30 11RF naproxen 250 mg tablet 250 mg PO BID PRN prednisone 10 mg tablet 10 mg PO DAILY Qty: 30 0RF Rx Instructions: si tabs daily for 10 days, then 1 tab daily for 10 days. vitamin [id number] acid 1 EACH tablet 1 ea PO DAILY Label Comments: 1000 mcg nicotine 7 mg/24 hr patch 24 hour 1 patch transdermal Q24H cholecalciferol (vitamin D3) 50 mcg (2,000 unit) capsule 50 mcg PO DAILY metformin 500 mg tablet extended release 24 hr 1,000 mg PO BID Trulicity 1.5 mg/0.5 mL pen injector 3 mg subcut QWEEK losartan 25 mg tablet 25 mg PO DAILY rosuvastatin [Crestor] 5 MG tablet 10 mg PO QPM naratriptan 2.5 mg tablet 2.5 mg PO BID PRN riboflavin (vitamin B2) [Vitamin B-2] 50 MG tablet 200 mg PO BID pregabalin [Lyrica] 75 MG capsule 100 mg PO TID Label Comments: 100 mg am, 100 mg 2 pm, 100 mg at HS polyethylene glycol 3350 17 gram/dose Powder 17 g PO DAILY PRN paroxetine HCl 20 mg tablet 40 mg PO DAILY levothyroxine [Synthroid] 25 MCG tablet 50 mcg PO HS magnesium oxide 400 MG tablet 800 mg PO BID omeprazole 20 mg Capsule,Delayed Release(Dr/Ec) 20 mg PO DAILY prochlorperazine maleate 10 mg Tablet 10 mg PO DAILY PRN (Reason: Headache) albuterol sulfate [Ventolin HFA] 90 mcg/actuation Hfa Aerosol Inhaler 2 puff INHALATION QID PRN naloxone [Narcan] 4 mg/actuation Murray,Non-Aerosol 1 spray INTRANASAL ONCE PRN Label Comments: Never used. valacyclovir 1 gram tablet 500 mg PO QHS aspirin 81 mg tablet,delayed release (DR/EC) 81 mg PO DAILY Qty: 14 0RF Rx Instructions: Take 1 daily with a meal for 30 days estradiol 1 mg tablet 1 mg PO BID Label Comments: TAKE 1 TABLET BY MOUTH EVERY MORNING THEN 2 TABLETS EVERY EVENING hydrocortisone 2.5 % cream 1 applic topical QID Qty: 30 6RF acetaminophen 500 mg capsule 1,000 mg PO Q8H PRN PRNQty: 30 0RF ibuprofen 600 mg tablet 600 mg PO TID Qty: 30 0RF hydromorphone 2 mg tablet 2 - 4 mg PO Q6H PRN (Reason: pain) Qty: 20 0RF lamotrigine [Lamictal] 100 mg tablet 100 mg PO HS Label Comments: TAKE 1 TABLET BY MOUTH EVERY DAY Discharge Instructions Activity:: Intubated Equipment/Supplies:: No Equipment Needed Diet:: NPO Discharge Orders Discharge Orders: Discharge Order (Routine); Ordered 09/08/22 Ordered By: Kolby Yuan DS: Summary Time Spent with Patient providing and/or coordinating discharge services: Greater than 30 minutes Status at Discharge Functional status at discharge: bed bound Overall status at discharge: patient is not back to baseline Mental Status: mental status grossly normal Speech and Movement: speech and movement normal Mood: anxious mood Affect: blunted Exam Narrative Exam Narrative: Pt on BiPAP. Communicates Const General: cooperative and acute distress (tachypnea) moderate Nutritional Appearance: obese Orientation: oriented x3 Eyes General: appearance normal, both eyes and all related structures Sclera: sclerae normal Resp Effort & Inspection: tachypneic (rate in the 40's.) Cardio Rate: tachycardic Rhythm: regular rhythm GI Palpation: soft and nontender Neuro General: no focal motor deficits Cranial Nerves: facial strength normal Psych Mental Status: mental status grossly normal Speech and Movement: speech and movement normal Mood: anxious mood Affect: blunted DS: Data Vitals/I&O Vitals and I&O: Vital Signs Temperature 35.6 C L 09/08/22 17:24 Temperature Source Temporal Artery Scan 09/08/22 17:24 Pulse 115 H 09/08/22 17:24 Pulse 117 H 09/08/22 17:24 Respiratory Rate 17 09/08/22 17:24 Respiratory Effort 09/08/22 12:51 Respiratory Depth Shallow 09/08/22 12:51 Respiratory Pattern Tachypnea 09/08/22 12:51 Blood Pressure 128/77 09/08/22 17:24 Blood Pressure Mean 88 09/08/22 17:24 Blood Pressure Position Supine 09/08/22 12:51 Pulse Oximetry 92 09/08/22 17:24 Oxygen Delivery Method Bi-pap 09/08/22 17:24 Oxygen Flow Rate 18 09/08/22 17:24 Fraction of Inspired Oxygen (FIO2) 5 09/08/22 17:24 Pain Level 0 09/08/22 17:24 Comment 09/08/22 17:24 Intake & Output 09/07/22 09/08/22 09/08/22 23:59 11:59 23:59 Intake Total 700 / 800 100 / 800 Output Total 1965 / 2990 1025 / 2990 Balance -1265 / -2190 -925 / -2190 Weight 99.79 kg 100.9 kg Intake: IV 250 / 350 100 / 350 Oral 450 / 450 Output: Urine 1965 / 2990 1025 / 2990 Other: Urine Color Straw Straw Urine Appearance Clear Clear Urine Odor Normal Comment pt reports hysterectomy Voiding Methods Bedside Commode Bedside Commode Data Completed and Pending Labs on day of discharge: Labs from last 24 hours 09/08/22 09/08/22 09/08/22 09:05 06:11 06:11 WBC 15.45 H RBC 4.45 Hgb TNP Hct 40.1 MCV 90 MCH TNP MCHC TNP RDW 14.0 Plt Count 277 MPV 11.2 H Immature Gran % 0.0 Neutrophils % 74.0 Band Neutrophils % 18 Lymphocytes % 7.0 Atypical Lymphs % 0 Monocytes % 1.0 Eosinophils % 0.0 Basophils % 0.0 Nucleated RBC % 0.0 Absolute Neutrophils 14.21 H Absolute Lymphocytes 1.08 L Absolute Monocytes 0.15 Absolute Eosinophils 0.00 Absolute Basophils 0.00 RBC Morphology Normal VBG pH 7.37 VBG pCO2 37 L VBG pO2 100 VBG HCO3 21 L VBG Total CO2 VBG O2 Saturation VBG Base Excess -4 L Sodium 141 Potassium 4.6 Chloride 104 Carbon Dioxide 18.8 L Anion Gap 18.2 H BUN 11 Creatinine 0.9 Est GFR (CKD-EPI 2020) 79.35 Glucose 363 H Calcium 9.4 Magnesium 2.3 Total Bilirubin 0.5 AST 81 H ALT 27 Alkaline Phosphatase 86 Troponin I Total Protein 7.2 Albumin 3.0 L Procalcitonin TSH Urine Color Urine Clarity Urine pH Ur Specific [place] Urine Protein Urine Ketones Urine Blood Urine Nitrite Urine Bilirubin Urine Urobilinogen Ur Leukocyte Esterase Urine RBC Urine WBC Ur Epithelial Cells Urine Crystals Urine Bacteria Urine Mucus Ur Culture Indicated? Urine Glucose COVID-19 Source 09/08/22 09/08/22 09/08/22 06:11 03:25 01:23 WBC RBC Hgb Hct MCV MCH MCHC RDW Plt Count MPV Immature Gran % Neutrophils % Band Neutrophils % Lymphocytes % Atypical Lymphs % Monocytes % Eosinophils % Basophils % Nucleated RBC % Absolute Neutrophils Absolute Lymphocytes Absolute Monocytes Absolute Eosinophils Absolute Basophils RBC Morphology VBG pH VBG pCO2 VBG pO2 VBG HCO3 VBG Total CO2 VBG O2 Saturation VBG Base Excess Sodium Potassium Chloride Carbon Dioxide Anion Gap BUN Creatinine Est GFR (CKD-EPI 2020) Glucose Calcium Magnesium 1.4 L Total Bilirubin AST ALT Alkaline Phosphatase Troponin I < 50 Total Protein Albumin Procalcitonin TSH 0.37 Urine Color Yellow Urine Clarity Sl Cloudy Urine pH 5.5 Ur Specific [place] >= 1.030 H Urine Protein 30 H Urine Ketones 80 H Urine Blood Negative Urine Nitrite Negative Urine Bilirubin Negative Urine Urobilinogen 0.2 Ur Leukocyte Esterase Negative Urine RBC 0-2 Urine WBC 0-2 Ur Epithelial Cells Few Urine Crystals Negative Urine Bacteria Few Urine Mucus Negative Ur Culture Indicated? No Urine Glucose 500 H COVID-19 Source 09/08/22 09/07/22 09/07/22 01:23 15:36 15:30 WBC RBC Hgb Hct MCV MCH MCHC RDW Plt Count MPV Immature Gran % Neutrophils % Band Neutrophils % Lymphocytes % Atypical Lymphs % Monocytes % Eosinophils % Basophils % Nucleated RBC % Absolute Neutrophils Absolute Lymphocytes Absolute Monocytes Absolute Eosinophils Absolute Basophils RBC Morphology VBG pH VBG pCO2 VBG pO2 VBG HCO3 VBG Total CO2 VBG O2 Saturation VBG Base Excess Sodium Potassium Chloride Carbon Dioxide Anion Gap BUN Creatinine Est GFR (CKD-EPI 2020) Glucose Calcium Magnesium Total Bilirubin AST ALT Alkaline Phosphatase Troponin I < 50 Total Protein Albumin Procalcitonin 0.2 TSH Urine Color Urine Clarity Urine pH Ur Specific [place] Urine Protein Urine Ketones Urine Blood Urine Nitrite Urine Bilirubin Urine Urobilinogen Ur Leukocyte Esterase Urine RBC Urine WBC Ur Epithelial Cells Urine Crystals Urine Bacteria Urine Mucus Ur Culture Indicated? Urine Glucose COVID-19 Source Nasopharynx PFSH All Active Problems Pulmonary hypertension (Chronic) Acute respiratory failure with hypoxia (Acute) Pulmonary edema (Acute) Acute respiratory distress (Acute) COVID-19 (Acute) Bilateral carpal tunnel syndrome (Acute) S/P R ECTR: 05/13/2022 Amplified musculoskeletal pain (Acute) Tendonitis of long head of biceps brachii of right shoulder (Acute) Bursitis of right shoulder (Acute) Traumatic tear of right rotator cuff (Acute) Calcific tendinitis of right shoulder (Acute) 40mg depo-medrol injection: 02/11/2022 Lateral epicondylitis of right elbow (Acute) 40mg depo-medrol injection: 02/11/2022 Hematest positive stools (Acute) CAD (coronary artery disease) (Chronic) mild non-obstructive disease per cardiac cath report from [facility] 09/07/2013, more recent repeat cath unchanged but with pulmonary HTN Cardiomyopathy (Chronic) last echocardiogram 01/27/2019, LVEF 50-55%, no regional wall motion abnormalities, mild LVH, mild MR; normal RV size and function Bipolar disorder (Chronic) 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 (Acute 01/25/14) Atypical chest pain (Acute) Type 2 diabetes mellitus (Chronic) DVT prophylaxis (Acute) Palpitations (Acute) Spell of altered consciousness (Acute) Elevated brain natriuretic peptide (BNP) level (Acute) Chest pain (Acute) Screening for colon cancer (Acute) Tobacco use (Acute) Fecal occult blood test positive (Acute) Medical History Acute kidney injury Anxiety 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 (01/25/14) Bursitis of left shoulder (~03/2019) Carpal tunnel syndrome, left Cervical radiculopathy bilateral Change in mental status Chronic migraine (03/07/15) Chronic pain syndrome Dehydration Depression Diabetes Discharge planning issues Dizziness, nonspecific Dyspnea Elbow fracture, right Fatigue Hyperlipidemia Hyperthyroidism Impingement syndrome of left shoulder (~03/2019) Lactose intolerance Left rotator cuff tear (~03/2019) Medication overuse headache (03/07/15) Migraine headache with aura (03/07/15) Migraine headache without aura (03/07/15) Morbid obesity Orthostasis Polycystic ovaries Shortness of breath Splenomegaly Suicidal ideation Tachycardia Tendinitis of long head of biceps brachii of left shoulder (~03/2019) Unresponsive episode Surgical History History of arthroscopy of left shoulder History of section x2 History of endometrial ablation Hx of cardiac catheterization 08/2021-no stent placed Previous back surgery S/P hysterectomy Social History Smoking/Tobacco Use Status: Current every day Tobacco Type: cigarettes Quit status: quit date established Smoking risk assessment performed?: Yes Alcohol Intake: never Drug use: Never Substance use type: does not use Number of Children: 3 Current gender identity: female What is your relationship status?: Panel score (0-1 are the most socially isolated patients): 0 What type of physical activity do you participate in: none Do you feel safe at home: Yes Do you feel safe in your relationship?: Yes
[2022-09-08] MEDS: PROPOFOL 1,000 MG/100 ML BTL 30.27 MG IV (18:24)
[2022-09-08] MEDS: fentaNYL 100 MCG/2 ML VIAL 25 MCG IVP (18:58)
--- NOTE | 2022-09-08 19:12 | DI.RAD_ITS ---
Exam(s) XR PORTABLE CHEST AP POST LINE EXAM: XR PORTABLE CHEST AP POST LINE CLINICAL HISTORY: OG tube placement TECHNIQUE: 2D digital imaging was performed of the chest. One image was obtained. An AP view was ob tained. COMPARISON: CR,XR XR PORTABLE CHEST AP from 08/03/2022 FINDINGS: MEDIASTINUM: Normal. HEART: Normal. PULMONARY VASCULATURE: Normal. LUNGS: Bilateral pulmonary opacities are present bilaterally. PLEURAL SPACE: No definite pleural effusion or pneumothorax. BONE:Within normal limits for the patient's age. OTHER FINDINGS:The tip of the endotracheal tube is 3.5 cm above the graham. The nasogastric tube pas ses into the stomach. The tip is not included on the examination. IMPRESSION: 1. The tip of the endotracheal tube is in good position 3.5 cm above the graham. 2. The nasogastric tube passes below the hemidiaphragm into the stomach. The tip is not included on the examination. 3. Multifocal ground-glass opacities. Pulmonary edema versus pneumonia. DATA REPOSITORY: RADIATION DOSE DELIVERED:
[2022-09-08] MEDS: dexmedeTOMidine IN 0.9 % NACL 400 MCG/100 ML BTL 25 MCG IVPB (19:25)
[2022-09-08] MEDS: Normal Saline 500 ML IV ×2 (19:50)
[2022-09-08 20:15] LABS: BE 1 mmol/L (-2-3); HCO3 26 mmol/L (22-26); pCO2 44 mmHg (35-45); pH 7.38 (7.35-7.45); pO2 155 mmHg (80-105)
[2022-09-08 20:16] LABS: TCO2 28 mmol/L (23-27); sO2 99 % (95-98)
[2022-09-08 20:17] LABS: FIO2 80
--- NOTE | 2022-09-08 20:25 | DI.VRAD_ITS ---
PROCEDURE INFORMATION: Exam: XR Chest Exam date and time: 09/08/2022 7:06 PM Age: 47 years old Clinical indication: Device placement; Other: Og tube placement TECHNIQUE: Imaging protocol: Radiologic exam of the chest. Views: 1 view. COMPARISON: XR PORTABLE CHEST AP 08/03/2022 6:09 PM FINDINGS: Limitations: The examination is underpenetrated. Tubes, catheters and devices: There is an endotracheal catheter in situ, terminating 4.0 cm above the graham. There is a nasogastric/orogastric catheter in situ extending into the stomach then off the bottom of the image. Lungs: There is diffuse hazy ground-glass pulmonary density. Pulmonary edema? Artifactual appearance created by underpenetration? Pleural spaces: There is increased opacity through the left lower lung zone which obscures the silhouette of the left hemidiaphragm. A pleural effusion is suspected although consolidation at the left base or an artifactual appearance created by overlying soft tissue could produce a similar appearance. No right-sided pleural effusion or pneumothorax is demonstrated. Heart/Mediastinum: The heart appears enlarged. Bones/joints: The visualized bony structures appear grossly intact. There are osteophytes along the spinal margin. Organs: Surgical clips in the right upper quadrant suggest prior cholecystectomy. IMPRESSION: 1. Nasogastric/orogastric catheter in situ extending into the stomach then off the bottom of the image. 2. Diffuse hazy ground-glass pulmonary density. Pulmonary edema suspected. Pulmonary infection or an artifactual appearance created by underpenetration could have a similar appearance. 3. Suspected moderate-sized left pleural effusion. Consolidation at the left base or an artifactual appearance created by overlying soft tissue could mimic this appearance. Dictated and Authenticated by: Chilo Dobson MD. Ordering:DAIVD Jarrett MD
[2022-09-08] MEDS: Normal Saline 1,000 ML 150 ML IV (20:30)
[2022-09-08] MEDS: Midazolam 2 MG/2 ML VIAL 10 MG IVP (21:00)
[2022-09-08] MEDS: MIDAZOLAM 50 MG in Normal Saline 90 ML 20 MG IV (21:20)
--- NOTE | 2022-09-08 22:00 | DI.RAD_ITS ---
Exam(s) XR PORTABLE CHEST AP POST LINE EXAM: XR PORTABLE CHEST AP POST LINE CLINICAL HISTORY: central line placement TECHNIQUE: 2D digital imaging was performed of the chest. One image was obtained. An AP view was ob tained. COMPARISON: CR,XR XR PORTABLE CHEST AP POST LINE from 09/08/2022 FINDINGS: MEDIASTINUM: Normal. HEART: Upper limits of normal to mildly enlarged. PULMONARY VASCULATURE: Normal. LUNGS: There are persistent bilateral ground-glass pulmonary infiltrates present. PLEURAL SPACE: No pleural effusion or pneumothorax. BONE:Within normal limits for the patient's age. OTHER FINDINGS:The tip of the ET tube is 3.2 cm above the graham. The nasogastric tube passes below the hemidiaphragms. The tip is off the inferior border of the image. There has been interval placem ent of a right IJ catheter. The tip is in good position at the junction of the superior vena cava an d right atrium. IMPRESSION: 1. Stable pulmonary findings. 2. The tip of the newly placed right IJ catheter is in good position at the cavoatrial junction. DATA REPOSITORY: RADIATION DOSE DELIVERED:
--- NOTE | 2022-09-08 22:10 | SCONE_ITS ---
Date of service: 09/08/22 Time of Service: 22:10 Assessment and Plan Assessment and plan (1) Hypotension: Status: Acute Assessment and plan: Central line placed for administration of vasoactive medications. History of Present Illness History of Present Illness Chief Complaint: Hypotension Narrative: 47 year old woman with hypoxic respiratory failure requiring intubation and mechanical ventilation. Subsequently she developed hypotension requiring vasoactive medications to support her blood pressure. I was consulted for central intravenous access. Review of Systems Narrative: Unable to obtain because of her mental status. FORMERLY [facility] All Active Problems (Updated 09/08/22 @ 22:14 by Hemant Arrieta MD) Hypotension (Acute) Pulmonary hypertension (Chronic) Acute respiratory failure with hypoxia (Acute) Pulmonary edema (Acute) Acute respiratory distress (Acute) COVID-19 (Acute) Bilateral carpal tunnel syndrome (Acute) S/P R ECTR: 05/13/2022 Amplified musculoskeletal pain (Acute) Tendonitis of long head of biceps brachii of right shoulder (Acute) Bursitis of right shoulder (Acute) Traumatic tear of right rotator cuff (Acute) Calcific tendinitis of right shoulder (Acute) 40mg depo-medrol injection: 02/11/2022 Lateral epicondylitis of right elbow (Acute) 40mg depo-medrol injection: 02/11/2022 Hematest positive stools (Acute) CAD (coronary artery disease) (Chronic) mild non-obstructive disease per cardiac cath report from [facility] [place] 09/07/2013, more recent repeat cath unchanged but with pulmonary HTN Cardiomyopathy (Chronic) last echocardiogram 01/27/2019, LVEF 50-55%, no regional wall motion abnormalities, mild LVH, mild MR; normal RV size and function Bipolar disorder (Chronic) 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 (Acute 01/25/14) Atypical chest pain (Acute) Type 2 diabetes mellitus (Chronic) DVT prophylaxis (Acute) Palpitations (Acute) Spell of altered consciousness (Acute) Elevated brain natriuretic peptide (BNP) level (Acute) Chest pain (Acute) Screening for colon cancer (Acute) Tobacco use (Acute) Fecal occult blood test positive (Acute) Medical History Acute kidney injury Anxiety 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 (01/25/14) Bursitis of left shoulder (~03/2019) Carpal tunnel syndrome, left Cervical radiculopathy bilateral Change in mental status Chronic migraine (03/07/15) Chronic pain syndrome Dehydration Depression Diabetes Discharge planning issues Dizziness, nonspecific Dyspnea Elbow fracture, right Fatigue Hyperlipidemia Hyperthyroidism Impingement syndrome of left shoulder (~03/2019) Lactose intolerance Left rotator cuff tear (~03/2019) Medication overuse headache (03/07/15) Migraine headache with aura (03/07/15) Migraine headache without aura (03/07/15) Morbid obesity Orthostasis Polycystic ovaries Shortness of breath Splenomegaly Suicidal ideation Tachycardia Tendinitis of long head of biceps brachii of left shoulder (~03/2019) Unresponsive episode Surgical History History of arthroscopy of left shoulder History of section x2 History of endometrial ablation Hx of cardiac catheterization 08/2021-no stent placed Previous back surgery S/P hysterectomy Social History Smoking/Tobacco Use Status: Current every day Tobacco Type: cigarettes Quit status: quit date established Smoking risk assessment performed?: Yes Alcohol Intake: never Drug use: Never Substance use type: does not use Number of Children: 3 Current gender identity: female What is your relationship status?: Panel score (0-1 are the most socially isolated patients): 0 What type of physical activity do you participate in: none Do you feel safe at home: Yes Do you feel safe in your relationship?: Yes Results Last Vital Signs Temp 96.1 F L 09/08/22 17:24 Pulse 101 H 09/08/22 20:21 Resp 24 09/08/22 20:21 BP 63/45 L 09/08/22 20:21 Pulse Ox 95 09/08/22 20:21 Labs Result diagrams: 09/08/22 06:11 09/08/22 06:11 Labs: Laboratory Results - last 24 hr 09/07/22 09/07/22 09/08/22 15:30 15:36 01:23 WBC RBC Hgb Hct MCV MCH MCHC RDW Plt Count MPV Immature Gran % Neutrophils % Band Neutrophils % Lymphocytes % Atypical Lymphs % Monocytes % Eosinophils % Basophils % Nucleated RBC % Absolute Neutrophils Absolute Lymphocytes Absolute Monocytes Absolute Eosinophils Absolute Basophils RBC Morphology Sample Site ABG Sample Site ABG pH ABG pCO2 ABG pO2 ABG HCO3 ABG Total CO2 ABG O2 Saturation ABG Base Excess VBG pH VBG pCO2 VBG pO2 VBG HCO3 VBG Total CO2 VBG O2 Saturation VBG Base Excess Oxygen Liter Flow FiO2 Sodium Potassium Chloride Carbon Dioxide Anion Gap BUN Creatinine Est GFR (CKD-EPI 2020) Glucose Calcium Magnesium Total Bilirubin AST ALT Alkaline Phosphatase Troponin I < 50 Total Protein Albumin Procalcitonin 0.2 TSH Urine Color Urine Clarity Urine pH Ur Specific Mary [place] Urine Protein Urine Ketones Urine Blood Urine Nitrite Urine Bilirubin Urine Urobilinogen Ur Leukocyte Esterase Urine RBC Urine WBC Ur Epithelial Cells Urine Crystals Urine Bacteria Urine Mucus Ur Culture Indicated? Urine Glucose COVID-19 Source Nasopharynx 09/08/22 09/08/22 09/08/22 01:23 03:25 06:11 WBC RBC Hgb Hct MCV MCH MCHC RDW Plt Count MPV Immature Gran % Neutrophils % Band Neutrophils % Lymphocytes % Atypical Lymphs % Monocytes % Eosinophils % Basophils % Nucleated RBC % Absolute Neutrophils Absolute Lymphocytes Absolute Monocytes Absolute Eosinophils Absolute Basophils RBC Morphology Sample Site ABG Sample Site ABG pH ABG pCO2 ABG pO2 ABG HCO3 ABG Total CO2 ABG O2 Saturation ABG Base Excess VBG pH VBG pCO2 VBG pO2 VBG HCO3 VBG Total CO2 VBG O2 Saturation VBG Base Excess Oxygen Liter Flow FiO2 Sodium Potassium Chloride Carbon Dioxide Anion Gap BUN Creatinine Est GFR (CKD-EPI 2020) Glucose Calcium Magnesium 1.4 L Total Bilirubin AST ALT Alkaline Phosphatase Troponin I < 50 Total Protein Albumin Procalcitonin TSH 0.37 Urine Color Yellow Urine Clarity Sl Cloudy Urine pH 5.5 Ur Specific Mary Alice >= 1.030 H Urine Protein 30 H Urine Ketones 80 H Urine Blood Negative Urine Nitrite Negative Urine Bilirubin Negative Urine Urobilinogen 0.2 Ur Leukocyte Esterase Negative Urine RBC 0-2 Urine WBC 0-2 Ur Epithelial Cells Few Urine Crystals Negative Urine Bacteria Few Urine Mucus Negative Ur Culture Indicated? No Urine Glucose 500 H COVID-19 Source 09/08/22 09/08/22 09/08/22 06:11 06:11 09:05 WBC 15.45 H RBC 4.45 Hgb TNP Hct 40.1 MCV 90 MCH TNP MCHC TNP RDW 14.0 Plt Count 277 MPV 11.2 H Immature Gran % 0.0 Neutrophils % 74.0 Band Neutrophils % 18 Lymphocytes % 7.0 Atypical Lymphs % 0 Monocytes % 1.0 Eosinophils % 0.0 Basophils % 0.0 Nucleated RBC % 0.0 Absolute Neutrophils 14.21 H Absolute Lymphocytes 1.08 L Absolute Monocytes 0.15 Absolute Eosinophils 0.00 Absolute Basophils 0.00 RBC Morphology Normal Sample Site ABG Sample Site ABG pH ABG pCO2 ABG pO2 ABG HCO3 ABG Total CO2 ABG O2 Saturation ABG Base Excess VBG pH 7.37 VBG pCO2 37 L VBG pO2 100 VBG HCO3 21 L VBG Total CO2 VBG O2 Saturation VBG Base Excess -4 L Oxygen Liter Flow FiO2 Sodium 141 Potassium 4.6 Chloride 104 Carbon Dioxide 18.8 L Anion Gap 18.2 H BUN 11 Creatinine 0.9 Est GFR (CKD-EPI 2020) 79.35 Glucose 363 H Calcium 9.4 Magnesium 2.3 Total Bilirubin 0.5 AST 81 H ALT 27 Alkaline Phosphatase 86 Troponin I Total Protein 7.2 Albumin 3.0 L Procalcitonin TSH Urine Color Urine Clarity Urine pH Ur Specific Mary Alice Urine Protein Urine Ketones Urine Blood Urine Nitrite Urine Bilirubin Urine Urobilinogen Ur Leukocyte Esterase Urine RBC Urine WBC Ur Epithelial Cells Urine Crystals Urine Bacteria Urine Mucus Ur Culture Indicated? Urine Glucose COVID-19 Source 09/08/22 09/08/22 19:35 Unknown WBC RBC Hgb Hct MCV MCH MCHC RDW Plt Count MPV Immature Gran % Neutrophils % Band Neutrophils % Lymphocytes % Atypical Lymphs % Monocytes % Eosinophils % Basophils % Nucleated RBC % Absolute Neutrophils Absolute Lymphocytes Absolute Monocytes Absolute Eosinophils Absolute Basophils RBC Morphology Sample Site Unknown ABG Sample Site Cancelled ABG pH 7.38 ABG pCO2 44 ABG pO2 155 H ABG HCO3 26 ABG Total CO2 28 H ABG O2 Saturation 99 H ABG Base Excess 1 VBG pH VBG pCO2 VBG pO2 VBG HCO3 VBG Total CO2 VBG O2 Saturation VBG Base Excess Oxygen Liter Flow Cancelled FiO2 80 Sodium Potassium Chloride Carbon Dioxide Anion Gap BUN Creatinine Est GFR (CKD-EPI 2020) Glucose Calcium Magnesium Total Bilirubin AST ALT Alkaline Phosphatase Troponin I Total Protein Albumin Procalcitonin TSH Urine Color Urine Clarity Urine pH Ur Specific Mary [place] Urine Protein Urine Ketones Urine Blood Urine Nitrite Urine Bilirubin Urine Urobilinogen Ur Leukocyte Esterase Urine RBC Urine WBC Ur Epithelial Cells Urine Crystals Urine Bacteria Urine Mucus Ur Culture Indicated? Urine Glucose COVID-19 Source Procedures Central Line Placement Right IJ: Time out performed: Yes Patient placed on monitor/pulse ox: Yes prep: mask, gown and gloves Central line prep: Chlorhexidine scrub and sterile drapes applied Local anesthesia used: lidocaine 1% Amount of anesthesia used (ml): 4 Ultrasound used for placement: Yes Central line lumen inserted: triple Post procedure: sutured in place, good blood return, all ports aspirated, flushed, capped and sterile dressing applied Post procedure x-ray: tip of catheter in good position Patient tolerated procedure: well and no complications Complications: none
[2022-09-08] MEDS: Enoxaparin 40 MG/0.4 ML SYR SC (22:28)
[2022-09-08] MEDS: cefTRIAXone 1 GM/50 ML BAG IVPB (22:28)
--- NOTE | 2022-09-08 23:13 | DI.VRAD_ITS ---
PROCEDURE INFORMATION: Exam: XR Chest Exam date and time: 09/08/2022 10:34 PM Age: 47 years old Clinical indication: Other: Central line placement TECHNIQUE: Imaging protocol: Radiologic exam of the chest. Views: 1 view. COMPARISON: XR PORTABLE CHEST AP POST LINE 09/08/2022 7:06 PM FINDINGS: Limitations: The examination is underpenetrated. Tubes, catheters and devices: There has been interval placement of a right internal jugular central venous catheter which terminates in the expected location of the cavoatrial junction. An endotracheal catheter terminates 3.3 cm above the graham. A nasogastric/orogastric catheter extends into the stomach and off the bottom of the film. Lungs: There is diffuse hazy ground-glass pulmonary density. Pulmonary edema could have this appearance; however, an artifactual appearance created by underpenetration is not confidently excluded. Pleural spaces: Possible small left pleural effusion versus an artifactual appearance created by overlying soft tissue. No right-sided pleural effusion. No pneumothorax. Heart/Mediastinum: The heart appears enlarged. Diaphragm: There is elevation of the right hemidiaphragm. Bones/joints: The visualized bony structures appear grossly intact, as seen. IMPRESSION: Interval placement of a right internal jugular central venous catheter, terminating in the expected location of the cavoatrial junction. Dictated and Authenticated by: Chilo Dobson MD. Ordering:MCKINLEY Tejeda MD
[2022-09-08] MEDS: dexmedeTOMidine IN 0.9 % NACL 400 MCG/100 ML BTL 12.5 MCG IVPB (23:17)
[2022-09-09] VITALS (49 sets, daily range): BP systolic 109–134; BP diastolic 67–80; PULSE 107–125; RESP 23–48; TEMP 35.6–37.8; O2SAT 88–97
[2022-09-09] MEDS: PROPOFOL 1,000 MG/100 ML BTL 30.27 MG IV ×2 (00:27→02:49)
[2022-09-09] MEDS: DOXYCYCLINE 100 MG in Normal Saline 100 ML IVPB (00:31)
[2022-09-09] MEDS: Insulin Glargine 300 UNITS/3 ML PEN 10 UNITS SC (01:41)
[2022-09-09] MEDS: Insulin Aspart 300 UNITS/3 ML PEN SC ×2 (01:42→07:09)
[2022-09-09] MEDS: MIDAZOLAM 50 MG in Normal Saline 90 ML 16 MG IV (01:43)
[2022-09-09 02:30] LABS: BE (Venous) -5 mmol/L (-2-3); HCO3 (Venous) 21 mmol/L (23-28); O2 Sat (Venous) 93 %; TCO2 (Venous) 22 mmol/l (24-29); pCO2 (Venous) 38 mmHg (41-51); pH (Venous) 7.35 (7.31-7.41); pO2 (Venous) 69 mmHg
[2022-09-09] MEDS: fentaNYL 100 MCG/2 ML VIAL 25 MCG IVP (02:49)
[2022-09-09] MEDS: PROPOFOL 1,000 MG/100 ML BTL 18.162 MG IV (05:30)
[2022-09-09] MEDS: Normal Saline 1,000 ML 125 ML IV (06:00)
[2022-09-09 06:25] LABS: Abs Immature Grans 0.13 10^3/uL (0.0-0.06); MCV 90 fL (80-95); MPV 11.3 fL (8.0-11.0); Platelet Count 235 10^3/uL (130-400); RBC 3.89 10^6/uL (3.93-5.22); RDW 14.3 % (11.7-14.6); RDW-SD 46.5 fL; WBC 12.64 10^3/uL (4.4-10.8)
[2022-09-09] MEDS: Hydrocortisone SOD SUC. 100 MG VIAL IVP (06:30)
[2022-09-09] MEDS: dexmedeTOMidine IN 0.9 % NACL 400 MCG/100 ML BTL IVPB ×2 (07:01→11:09)
[2022-09-09 08:09] LABS: ALT 23 U/L (14-59); AST 35 U/L (15-37); Albumin 2.6 g/dL (3.4-5.0); Alkaline Phosphatase 80 U/L (46-116); BUN 18 mg/dL (7-18); Bilirubin, Total 0.5 mg/dL (0.2-1.0); CREATININE 0.9 mg/dL (0.55-1.02); Calcium 9.1 mg/dL (8.5-10.1); Chloride 109 mmol/L (98-107); Estimated GFR 79.35 (mL/min/1.73m2); Glucose 312 mg/dL (74-106); Sodium 147 mmol/L (136-145)
[2022-09-09 08:13] LABS: BE -3 mmol/L (-2-3); HCO3 22 mmol/L (22-26); TCO2 23 mmol/L (23-27); pCO2 37 mmHg (35-45); pH 7.38 (7.35-7.45); pO2 205 mmHg (80-105)
[2022-09-09 08:14] LABS: FIO2 75%; sO2 100 % (95-98)
[2022-09-09 08:27] LABS: Anion Gap 21.1 mmol/L (3-11); CO2 16.9 mmol/L (21.0-32.0)
[2022-09-09 08:29] LABS: Potassium 3.5 mmol/L (3.5-5.1)
[2022-09-09] MEDS: PROPOFOL 1,000 MG/100 ML BTL 36.324 MG IV ×2 (09:13→10:24)
[2022-09-09 09:32] LABS: HGB 12.9 g/dL (11.2-15.7)
[2022-09-09 09:33] LABS: MCH 33.2 pg (27.0-33.0); MCHC 36.9 % (32.0-36.0)
[2022-09-09 09:35] LABS: Absolute Lymphocyte Count 1.54 10^3/uL (1.2-3.4); Absolute Monocyte Count 0.38 10^3/uL (0.1-0.8); Absolute Neutrophil Count 10.57 10^3/uL (1.2-6.7); Lymphocytes % 12.2; Neutrophils % 83.6
[2022-09-09 09:36] LABS: Absolute Basophil Count 0.04 10^3/uL (0.0-0.2); Absolute Eosinophil Count 0.01 10^3/uL (0.0-0.7); Basophils % 0.3; Eosinophils % 0.1; Immature Grans % 0.8
[2022-09-09] MEDS: MIDAZOLAM 50 MG in Normal Saline 90 ML 10 MG IV (10:21)
--- NOTE | 2022-09-09 10:47 | NUR.NOTE ---
Spoke with Demarcus Zhouck the son and updated him on the transfer. Nursing Note:
--- NOTE | 2022-09-09 14:39 | PDOC.CMPRO ---
- If Service Date Differs Date of service: 09/09/22 Time of Service: 14:39 Care Management Progress Note Patient intubated and transferred to tertiary. Nursing Social Media Community Manager coordination of transfer/transportation.
== END 2022-09-09 11:30 | DRG 291 ==
LOC: ER 20:13 → ICU 22:35
PROVIDERS: Family Medicine; Admitting Provider Family Medicine; Emergency Provider Emergency Medicine; PCP Family Medicine; Visit Provider Family Medicine
DX: I50.1 Left ventricular failure, unspecified (principal); J96.01 Acute respiratory failure with hypoxia; J44.1 Chronic obstructive pulmonary disease with (acute) exacerbation; I42.9 Cardiomyopathy, unspecified; I27.20 Pulmonary hypertension, unspecified; I25.10 Atherosclerotic heart disease of native coronary artery without angina pectoris; E11.9 Type 2 diabetes mellitus without complications; Z86.16 Personal history of COVID-19; F17.210 Nicotine dependence, cigarettes, uncomplicated; R19.5 Other fecal abnormalities; E78.5 Hyperlipidemia, unspecified; E05.90 Thyrotoxicosis, unspecified without thyrotoxic crisis or storm; E66.01 Morbid (severe) obesity due to excess calories; Z68.38 Body mass index [BMI] 38.0-38.9, adult; Z79.52 Long term (current) use of systemic steroids; E83.42 Hypomagnesemia; Z79.84 Long term (current) use of oral hypoglycemic drugs; R91.8 Other nonspecific abnormal finding of lung field
CPT/HCPCS: 36415; 71045; 71275; 80053; 82803; 82805; 84145; 87637; 93005; 93306; 94640; 96374; 96375; 99285; J1650; 36600; 81003; 81015; 83735; 83880; 84443; 84484; 85025; 85610; 85730; 93010; 94003; 94660; 99223; 99239; J0696; J0780; J1100; J1720; J1940; J2250; J2270; J3010; J3475; J3490; J7613; J7620

== ENCOUNTER 2022-10-28 17:58 | Outpatient (REF) | payer MEDICARE, MEDICAID, SELFPAY ==
[2022-10-28 15:49] LABS: Abs Immature Grans 0.04 10^3/uL (0.0-0.06); Absolute Basophil Count 0.07 10^3/uL (0.0-0.2); Absolute Eosinophil Count 0.19 10^3/uL (0.0-0.7); Absolute Monocyte Count 0.55 10^3/uL (0.1-0.8); Absolute Neutrophil Count 5.06 10^3/uL (1.2-6.7); Basophils % 0.8; Eosinophils % 2.1; HCT 38.2 % (36.0-46.0); HGB 12.7 g/dL (11.2-15.7); Immature Grans % 0.4; Lymphocytes % 34.4; MCH 30.1 pg (27.0-33.0); MCHC 33.2 % (32.0-36.0); MCV 91 fL (80-95); MPV 10.7 fL (8.0-11.0); Monocytes % 6.1; Neutrophils % 56.2; Platelet Count 261 10^3/uL (130-400); RBC 4.22 10^6/uL (3.93-5.22); RDW 14.2 % (11.7-14.6); WBC 9.01 10^3/uL (4.4-10.8)
[2022-10-28 16:19] LABS: ALT 22 U/L (14-59); AST 21 U/L (15-37); Albumin 3.5 g/dL (3.4-5.0); Alkaline Phosphatase 66 U/L (46-116); Anion Gap 11.7 mmol/L (3-11); BUN 16 mg/dL (7-18); Bilirubin, Total 0.5 mg/dL (0.2-1.0); CO2 25.3 mmol/L (21.0-32.0); CREATININE 0.5 mg/dL (0.55-1.02); Calcium 9.3 mg/dL (8.5-10.1); Chloride 100 mmol/L (98-107); Estimated GFR 116.34 (mL/min/1.73m2); Glucose 181 mg/dL (74-106); Magnesium 1.4 mg/dL (1.8-2.4); Potassium 4.5 mmol/L (3.5-5.1); Sodium 137 mmol/L (136-145); Total Protein 6.8 g/dL (6.4-8.2)
[2022-10-28 16:43] LABS: Hemoglobin A1C 7.2 % (<5.7)
== END 2022-10-28 17:59 | disposition home or self-care (01) ==
LOC: LBN 17:58
PROVIDERS: PCP Family Medicine; Visit Provider Family Medicine
DX: M25.531 Pain in right wrist (principal); E11.9 Type 2 diabetes mellitus without complications; E83.42 Hypomagnesemia; R53.83 Other fatigue
CPT/HCPCS: 80053; 83036; 83735; 85025; 86140

== ENCOUNTER → 2022-10-30 10:42 | Outpatient (CLI) | payer MEDICARE, MEDICAID, SELFPAY ==
--- NOTE | 2022-10-30 12:40 | DI.RAD_ITS ---
Exam(s) XR WRIST RT COMPLETE EXAM: XR WRIST RT COMPLETE CLINICAL HISTORY: RT WRIST PAIN M25.561, PAIN WITH ROM. TECHNIQUE: 2D digital imaging was performed of the right wrist. Three views were obtained. PA, lat eral and oblique views were obtained. COMPARISON: No exams were available for comparison FINDINGS: BONES: No acute fracture is present. No bony destructive lesion is seen. JOINTS: The carpal bones are normally aligned. SOFT TISSUE: Normal. IMPRESSION: Unremarkable radiographs of the right wrist. DATA REPOSITORY: RADIATION DOSE DELIVERED:
== END ==
PROVIDERS: PCP Family Medicine; Visit Provider Family Medicine
DX: M25.561 Pain in right knee (principal)
CPT/HCPCS: 73110

== ENCOUNTER 2022-11-27 01:05 | Outpatient (CLI) | payer MEDICARE, MEDICAID, SELFPAY ==
--- NOTE | 2022-11-27 | DI.MAMMO_ITS ---
Exam(s) US BREAST LT COMPLETE MG MAMMO DIAGNOSTIC BI EXAM: MG MAMMO DIAGNOSTIC BI AND COMPLETE LEFT BREAST ULTRASOUND CLINICAL HISTORY: DIAGNOSTIC, LT BREAST PAIN, N64.4,MORE DISCRETE MASS LOWER OUTER QUADRANT. TECHNIQUE: Both CC and MLO mammographic views of both breasts were obtained with 3D tomosynthesis te chnique and utilizing computer aided detection (CAD). We also performed complete left breast ultrasound including all 4 quadrants as well as the retroareol ar region of the left breast as well as the left axilla. COMPARISON: Prior mammograms were reviewed, the most recent being November 2019. This 47-year-old patient is complaining of occasional shooting pains in her left breast, mostly infer iorly. She does not feel an actual lump and she denies nipple discharge. She has been on hormone re placement therapy since hysterectomy 2 years ago and claims this is affecting her breast. FINDINGS: DIAGNOSTIC BILATERAL MAMMOGRAM: There has been no significant change in the appearance and distribution of the fibroglandular tissue. There are no new spiculated masses nor malignant-appearing microcalcification groups in either breast and there is no new architectural distortion or skin thickening-traction. COMPLETE LEFT BREAST ULTRASOUND: There is no evidence of solid or significant cystic lesions in all 4 quadrants. Her area of maximum symptoms is inferiorly in the region of the inferior mammary fold. Only normal breast tissue is seen at this location. Retroareolar region appears unremarkable. Scanning of the left axilla is negative for significant adenopathy. IMPRESSION: 1. No radiographic evidence of malignancy in either breast. 2. Negative complete left breast ultrasound. Appropriate follow-up is to keep this patient yearly mammogram schedule. Earlier imaging can be perf ormed if she starts to feel a lump or remains concerned. The patient was informed of the findings and follow-up recommendations by myself prior to leaving the department today. BI-RADS Category 2 - Benign Findings Breast Density - Category B - Scattered areas of fibroglandular density Breast density Category C or D implies that the patient has dense breast tissue. Dense breast tissue can make it harder to find cancer on a mammogram. Dense breast tissue is also associated with an incr eased risk of breast cancer. This information about the result of the mammogram report was provided to the patient to raise their awareness. Use this report when you speak with the patient about their risks for breast cancer, which includes their family history. At that time, you may recommend additional screening tests (Ultrasoun d or MRI) as these tests may add significant information. A negative radiographic report should not delay biopsy if a dominant or clinically suspicious mass is present. Up to ten percent of cancers are not identified on mammography. A negative report may reinforce clinical impression. Adenosis and dense breasts may obscure an underlying neoplasm. False positive reports average 6 to 10%. Patient will receive a letter notifying them of these results.
== END 2022-11-27 01:25 ==
LOC: DI 01:05
PROVIDERS: PCP Family Medicine; Visit Provider Family Medicine
DX: N64.4 Mastodynia (principal); R92.8 Other abnormal and inconclusive findings on diagnostic imaging of breast
CPT/HCPCS: 76642; 77062; 77066; G0279

== ENCOUNTER 2023-01-08 10:26 | Outpatient (CLI) | payer MEDICARE, MEDICAID, SELFPAY | END 2023-01-08 10:27 | disposition home or self-care (01) | LOC: CARDOPNVT 10:26 | PROVIDERS: PCP Family Medicine; Visit Provider Family Medicine | DX: R00.2 Palpitations (principal) | CPT/HCPCS: 93246 ==

== ENCOUNTER 2023-01-21 15:20 | Outpatient (REF) | payer MEDICARE, MEDICAID, SELFPAY ==
[2023-01-21 15:26] LABS: Hemoglobin A1C 7.2 % (<5.7)
[2023-01-22 10:54] LABS: Lyme Ab w Rflx to Lyme Confirm Negative (Negative)
== END 2023-01-21 15:21 | disposition home or self-care (01) ==
LOC: NCHCN 15:20
PROVIDERS: PCP Family Medicine; Visit Provider Family Medicine
DX: E11.9 Type 2 diabetes mellitus without complications (principal); M25.50 Pain in unspecified joint
CPT/HCPCS: 83036; 86618

== ENCOUNTER 2023-01-23 01:00 | Outpatient (CLI) | payer MEDICARE, MEDICAID, SELFPAY ==
--- NOTE | 2023-01-23 | DI.MRI_ITS ---
Exam(s) MR CERVICAL SPINE WO EXAM: MR CERVICAL SPINE WO CLINICAL HISTORY: FELL,NECK INJURY,RT RADICULAR PAIN,SPONDYLOSIS,M47.812 TECHNIQUE: Multiplanar multisequence MRI of the cervical spine was performed without intravenous con trast. COMPARISON: MR MR CERVICAL SPINE WO from 04/08/2022 FINDINGS: CERVICOMEDULLARY JUNCTION: Intact with no evidence of cerebellar tonsillar ectopia. No obvious abnor mality of the odontoid process. No evidence of Chiari 1 malformation. CERVICAL SPINAL CORD: There is no abnormal signal in the cervical spinal cord and no evidence of foca l cord atrophy nor focal cord swelling. OSSEOUS:There are no cervical fractures evident. No significant osseous lesions in the cervical vert ebrae. INDIVIDUAL LEVELS: C2-3: No disc herniation nor central canal stenosis. No foraminal stenosis. No facet arthropathy. C3-4: There is a central posterior disc herniation at this level again noted. Appears similar to the previous study, extending posteriorly 3 millimeters and approximately 6 millimeters wide. Effaces t he thecal sac and contacts the anterior aspect of the spinal cord at this level. Central canal dimen sions are lower normal. There is no abnormal signal in the cord at this level.Facet joints at this l evel appear unremarkable. No significant foraminal stenosis. The disc herniation does not extend in to the exiting neural foramina on either side. C4-5: No disc herniation nor central canal stenosis.No facet arthropathy. No foraminal stenosis C5-6: Normal disc height and signal. No disc herniation at this level. Central canal dimensions are normal. No significant facet arthropathy. No foraminal stenosis at this level. C6-7: Posterolateral left disc protrusion again noted at this level and superimposed additional this extrusion additional 2.5 millimeters posterior extension by 4 millimeters wide, extending towards the exiting left neural foramen, slightly larger than previous. No disc herniation the right side at th is level. No foraminal stenosis on the right side. There are only minimal degenerative changes in t he facet joints this level. No obvious Luschka joint osteophytes. C7-T1: No disc herniation nor central canal stenosis. No facet arthropathy.No foraminal stenosis. IMPRESSION: 1. Compared to the prior MRI scan March 2022 there is again noted a posterolateral left disc herniation at C6-7 level. This has slightly further increased in size. Extends towards but not into the exiti ng left neural foramen. 2. Central subligamentous disc herniation at C three-four appears unchanged from the prior study. 3. There is no further disc height loss and there are no Luschka joint osteophytes nor significant fa cet arthropathy in the cervical spinal column. 4. No abnormal signal seen in the cervical spinal cord. No cord atrophy. No cord swelling. No Chi abril malformation. DATA REPOSITORY:
--- NOTE | 2023-01-23 | DI.MRI_ITS ---
Exam(s) MR UPPER JOINT RT WO EXAM: MR UPPER JOINT RT WO CLINICAL HISTORY: S/P FALL, RT SHOULDER PAIN,LTD RANGE OF MOTION,M25.511 TECHNIQUE: Multiplanar multisequence MRI of the shoulder was performed. COMPARISON: MR MR UPPER JOINT RT WO from 04/08/2022 CR XR WRIST RT COMPLETE from 10/30/2022 FINDINGS: MARROW:There is no evidence of fracture, Hill-Sachs deformity, nor ominous osseous lesions. Multiple tiny contiguous degenerative cysts in the posterolateral aspect of the humeral head. ROTATOR CUFF MECHANISM: AC JOINT/ACROMIUM: Mild degenerative changes in the AC joint.. There is no evidence of os acromiale. Supraspinatus: There is cystic change in the anterior superior sys open 8 is at and lateral to the mu sculotendinous junction over additions of 2.2 cm from the muscle belly to the musculotendinous juncti on. Lateral to this there is again noted a small focus of signal abnormality at the foot pad inserti onal aspect probably partial surface tear. There is a small amount of fluid in the subdeltoid bursa. This has increased slightly from the previous study. There is no dominant full-thickness tear and no muscle atrophy. Infraspinatus: Intact. No evidence of tear nor muscle atrophy. Teres Minor: Intact. No evidence of tear nor muscle atrophy. Subscapularis/anterior cuff: Some tendinitis signal. No full-thickness tear. No muscle atrophy. BICEPS TENDON: Not displaced from the intertubercular groove. No tear. LABRUM: Somewhat difficult to evaluate because of motion on the axial fat sat sequence. There is no abnormal signal in the superior labrum posterior to the biceps insertion. No evidence of SLAP tear. Anterior and posterior labrum are somewhat blurred by motion artifact. No obvious inferior labral t ear. The inferior glenohumeral ligament appears intact. GLENOHUMERAL JOINT: No prominent joint effusion. No loose intra-articular bodies evident. No degene rative subarticular cysts. No osteophytes. QUADRILATERAL SPACE: No evidence of mass in the region of the axillary nerve and dorsal circumflex hu meral vessels. Visualized triceps muscle at this level appears unremarkable. IMPRESSION: 1. There is some cystic change evident in the supraspinatus muscle-musculotendinous junction as descr ibed above. Tiny area signal abnormality in the foot pad insertion site again noted which is probabl y partial-thickness tear. Although there is no obvious full-thickness tear, there is some fluid in t he subdeltoid bursa. Therefore possibly very small full-thickness tear versus partial cystic changes and subacromial bursitis. 2. Some tendinitis signal also seen in the anterior cuff-subscapularis. 3. Labrum disc focal to assess because of motion artifact. No obvious labral tear nor evidence of pa ralabral cyst. No biceps tendon tear. 4. No obvious osteoarthritic degenerative changes in the glenohumeral joint. DATA REPOSITORY:
== END 2023-01-23 01:20 ==
LOC: DI 01:01
PROVIDERS: PCP Family Medicine; Visit Provider Physician Assistant Medical
DX: M25.511 Pain in right shoulder (principal); M25.811 Other specified joint disorders, right shoulder; M75.81 Other shoulder lesions, right shoulder; M47.812 Spondylosis without myelopathy or radiculopathy, cervical region; M50.223 Other cervical disc displacement at C6-C7 level; M50.21 Other cervical disc displacement, high cervical region
CPT/HCPCS: 72141; 73221

== ENCOUNTER 2023-02-02 08:35 | Outpatient (CLI) | payer MEDICARE, MEDICAID, SELFPAY ==
--- NOTE | 2023-02-02 13:34 | W.CARDEVENT ---
Date of service: 02/02/23 Time of Service: 13:34 Cardiac Event Recorder Referring Provider:: Edie Ellis Indications:: Palpitations Cardiac Event Note: This is a 14-day cardiac event monitor Rhythm throughout is sinus with an average heart rate of 102. Minimum was 78, maximum 148 There are very rare atrial premature beats. There were several self-limited atrial runs lasting 3 beats in duration There were rare ventricular ectopic beats. There was 1 ventricular triplet There was no atrial fibrillation, no SVT, no high-grade AV block, no pauses greater than 3 seconds No patient symptoms were reported
== END 2023-02-02 08:36 | disposition home or self-care (01) ==
LOC: CARDOPNVT 08:35
PROVIDERS: PCP Family Medicine; Visit Provider Internal Medicine Cardiovascular Disease
DX: R00.2 Palpitations (principal); I49.1 Atrial premature depolarization
CPT/HCPCS: 93248

== ENCOUNTER → 2023-03-03 10:09 | Outpatient (BNVA) | payer MEDICARE, MEDICAID, SELFPAY | PROVIDERS: PCP Family Medicine; Referring Provider Family Medicine; Visit Provider Student in an Organized Health Care Education/Training Program | DX: M79.18 Myalgia, other site (principal); M75.21 Bicipital tendinitis, right shoulder; M75.51 Bursitis of right shoulder; M75.31 Calcific tendinitis of right shoulder; S46.011D Strain of muscle(s) and tendon(s) of the rotator cuff of right shoulder, subsequent encounter; X58.XXXD Exposure to other specified factors, subsequent encounter | CPT/HCPCS: 99214 ==

== ENCOUNTER 2023-03-18 08:10 | Emergency (ER) | payer MEDICARE, MEDICAID, SELFPAY ==
[2023-03-18] VITALS (11 sets, daily range): BP systolic 144; BP diastolic 93; PULSE 96–107; RESP 17–27; TEMP 36.6; O2SAT 96
--- NOTE | 2023-03-18 08:00 | RT.EKG_ITS ---
APPROVED REPORT Exam: Resting ECG Reason for Exam: chest pain Patient Location: E HR:93 bpm ECG Measurements Heart Rate [address] 160 P 35 QRSd 84 QRS -1 QT 389 T 30 QTc 485 Conclusion Sinus rhythm...normal P axis, V-rate 60- 99 Atrial premature complex...SV complex w/ short R-R interval Consider anterior infarct...Q >30mS in V2-V5 narrow complex normal sinus rhythm at a rate of 93. Left axis deviation no signs of LVH. CT within normal limits. QTc within normal limits. No significant ST segment elevations. No ST segment depre ssions. No acute injury pattern. Compared to prior dated last fall sinus rhythm has replaced sinus tachycardia.
--- NOTE | 2023-03-18 08:13 | ED.GENADUL_ITS ---
Discharge Plan Disposition Patient Disposition: Home Discharge Details Clinical Impression: Chest pain, unspecified, Hypomagnesemia Primary Care Provider: Edie Ellis ED Provider: Prudencio Sims [place] Meds and New Rx's Prescriptions: Continued metoprolol succinate 50 mg tablet extended release 24 hr 50 mg PO DAILY Qty: 30 11RF naproxen 250 mg tablet 250 mg PO BID PRN clonazepam 1 mg tablet 1 mg PO BID melatonin 10 mg tablet 10 mg PO HS PRN loratadine 10 mg capsule 10 mg PO DAILY duloxetine 40 mg capsule, delayed rel sprinkle 40 mg PO DAILY bupropion HCl [Wellbutrin SR] 150 mg tablet sustained-release 12 hr 150 mg PO BID vitamin [id number] acid 1 EACH tablet 1 ea PO DAILY Patient Comments: 1000 mcg cholecalciferol (vitamin D3) 50 mcg (2,000 unit) capsule 50 mcg PO DAILY metformin 500 mg tablet extended release 24 hr 1,000 mg PO BID Trulicity 1.5 mg/0.5 mL pen injector 3 mg subcut QWEEK losartan 25 mg tablet 25 mg PO DAILY rosuvastatin [Crestor] 5 MG tablet 10 mg PO QPM naratriptan 2.5 mg tablet 2.5 mg PO BID PRN riboflavin (vitamin B2) [Vitamin B-2] 50 MG tablet 200 mg PO BID pregabalin [Lyrica] 75 MG capsule 100 mg PO TID Patient Comments: 100 mg am, 100 mg 2 pm, 100 mg at HS polyethylene glycol 3350 17 gram/dose Powder 17 g PO DAILY PRN levothyroxine [Synthroid] 25 MCG tablet 50 mcg PO HS magnesium oxide 400 MG tablet 800 mg PO BID omeprazole 20 mg Capsule,Delayed Release(Dr/Ec) 20 mg PO DAILY prochlorperazine maleate 10 mg Tablet 10 mg PO DAILY PRN (Reason: Headache) albuterol sulfate [Ventolin HFA] 90 mcg/actuation Hfa Aerosol Inhaler 2 puff INHALATION QID PRN naloxone [Narcan] 4 mg/actuation [place],Non-Aerosol 1 spray INTRANASAL ONCE PRN Patient Comments: Never used. valacyclovir 1 gram tablet 500 mg PO QHS aspirin 81 mg tablet,delayed release (DR/EC) 81 mg PO DAILY Qty: 14 0RF Rx Instructions: Take 1 daily with a meal for 30 days estradiol 1 mg tablet 1 mg PO BID Patient Comments: TAKE 1 TABLET BY MOUTH EVERY MORNING THEN 2 TABLETS EVERY EVENING hydrocortisone 2.5 % cream 1 applic topical QID Qty: 30 6RF acetaminophen 500 mg capsule 1,000 mg PO Q8H PRN PRNQty: 30 0RF ibuprofen 600 mg tablet 600 mg PO TID Qty: 30 0RF hydromorphone 2 mg tablet 2 - 4 mg PO Q6H PRN (Reason: pain) Qty: 20 0RF lamotrigine [Lamictal] 100 mg tablet 100 mg PO HS Patient Comments: TAKE 1 TABLET BY MOUTH EVERY DAY Discharge Instructions Instructions: Chest Pain (ED) Additional Instructions: Please read all of the information that accompanies these instructions. You were seen in the emergency department for your chest pain. Your blood work showed no sign of heart attack. Please schedule an appointment with your primary care provider later this week. Please return to the emergency department if develop any worsening pain if you pass out or if you have any other concerns. Your magnesium was slightly low. This should improve with a regular diet. Medical Decision Making This is an overall well-appearing normothermic and not tachycardic 47-year-old female with history of pulmonary hypertension and nonobstructive coronary artery disease with chest pain concerning for multiple etiologies. Given that she has had symptoms for greater than 3 hours and has a nonischemic EKG will be reassured of her initial troponin is negative. No tearing quality to suggest aortic dissection. Clear lungs and no fever nor cough so doubt pneumonia. Not hypotensive to suggest tamponade nor dialysis patient. No pain out of proportion to suggest necrotizing soft tissue infection. No rash to chest to suggest zoster. No vomiting to suggest esophageal rupture. I considered PE as the patient is on hormone replacement therapy so she is not PERC negative. As a result we will obtain a D-dimer. She is not wheezing to suggest COPD. She has had no lower extremity edema nor hypoxia to suggest acute CHF. Furthermore no lower extremity pitting edema. Will reassess following labs and treat with famotidine and Mylanta in the event that there is a component of reflux. We will also check lipase to assess for pancreatitis given the patient's elevated BMI. 8:53 AM CBC with no anemia or thrombocytopenia nor leukocytosis. 9:10 AM Reassuring negative troponin. Mildly elevated lipase but less than 3 times the upper limit of normal. Very mild hypomagnesemia for which patient will receive oral repletion. Reassuring comprehensive metabolic panel with no MACY and no acute electrolyte abnormalities. Very mild hyperglycemia but no anion gap. D-dimer negative. Given that the patient is not on a potassium sparing diuretic I suspect that her mild hypomagnesemia will improve as an outpatient with regular diet. HEART SCORE Chest pain Diagnostic Protocol: - [History/Physical/Gestalt: Slightly Suspicious (0)] - [EKG: Normal and/or unchanged from prior EKG (0)] - [AGE: 45-65 (+1)] - [RISK FACTORS: 3 or more risk factors and/or known CAD (+2)] - [TROPONIN: <= normal limit (0)] - TOTAL SCORE: 3 - Risk Factors: DM, current or recent smoker, HTN, HLD, family hx of CAD, obesity - INTERPRETATION: With a total score of 3 or less, risk of major cardiac event within six weeks 1.7%, likely lower with two negative troponins. [I explained to the patient that the risk of subsequent major cardiac event within 1 month is not 0, however risk predicted to be less than 2%. Patient verbalized understanding, accepts this risk and shared and the decision for discharge with PCP follow-up for further evaluation and management. They understand to return to the ED immediately with any worsening symptoms, new symptoms or other concerns.] Chronic conditions affecting the care of the patient: Pulmonary hypertension coronary artery disease and elevated BMI. History obtained from an outside historian: N/A External record review: [facility] [place] Diagnostic interpretations performed by me: [Per my independent interpretation chest x-ray shows:] No acute cardiopulmonary process on two-view chest [Per my independent interpretation EKG shows:] narrow complex normal sinus rhythm at a rate of 93. Left axis deviation no sign s of LVH. RI within normal limits. QTc within normal limits. No significant ST segment elevations. No ST segment depressions. No acute injury pattern. Compared to prior dated last fall sinus rhythm has replaced sinus tachycardia. Medications: Famotidine Mylanta Social determinants of health affecting disposition: N/A Management discussed with: N/A Treatment/interventions considered: N/A Response to therapies provided: Persistent symptoms despite famotidine and Mylanta HPI General Date/Time Provider Initiated Documentation: 03/18/23 08:12 . HPI Narrative: This is a 47-year-old female with a history of cardiomyopathy and pulmonary hypertension arriving via private vehicle in the setting of chest pain. She has a history of diabetes hypertension hyperlipidemia. Patient notes that yesterday she felt slightly unwell. She felt as if she was going to get a cold as she was sneezing and coughing. She felt nauseous but did not vomit. She took a nap and went to bed early. She had a burning sensation in her central chest yesterday. Today she woke up and had recurrent burning sensation at approximately 5:30 AM. She said that it radiated into her neck and into her back. It has been constant for the past 3+ hours. It has not been associated with vomiting fevers nor diaphoresis. She does say that it is associated with shortness of breath. She has not had any leg pain or any leg swelling. She has had no unintentional weight gain. She denies history of DVT. She has had a cardiac cath most recently 2 years ago but has not had any stenting. There is no family history of coronary artery disease. She denies routine tobacco, ethanol, and illicits. She took 81 mg of aspirin this morning. Related Data Home Medications Medication Instructions Recorded Confirmed rosuvastatin 5 mg tablet (Crestor) 10 mg PO QPM 06/28/13 03/18/23 riboflavin (vitamin B2) 50 mg 200 mg PO BID 03/13/15 03/18/23 tablet (Vitamin B-2) levothyroxine 25 mcg tablet 50 mcg PO HS 03/05/17 03/18/23 (Synthroid) magnesium oxide 400 mg (241.3 mg 800 mg PO BID 03/05/17 03/18/23 magnesium) tablet pregabalin 75 mg capsule (Lyrica) 100 mg PO TID 03/06/17 03/18/23 vitamin B12 500 mcg-folic acid 400 1 ea PO DAILY 03/11/17 03/18/23 mcg tablet albuterol sulfate 90 mcg/actuation 2 puff inhalation QID PRN 03/10/19 03/18/23 aerosol inhaler (Ventolin HFA) naloxone 4 mg/actuation nasal 1 spray intranasal ONCE PRN 03/10/19 03/18/23 spray (Narcan) omeprazole 20 mg capsule,delayed 20 mg PO DAILY 03/10/19 03/18/23 release prochlorperazine maleate 10 mg 10 mg PO DAILY PRN Headache 03/10/19 03/18/23 tablet metoprolol succinate 50 mg 50 mg PO DAILY #30 tabs 03/21/19 03/18/23 tablet,extended release 24 hr valacyclovir 1 gram tablet 500 mg PO QHS 03/21/19 03/18/23 aspirin 81 mg tablet,delayed 81 mg PO DAILY Prevent blood clot 09/30/19 03/18/23 release #14 tabs polyethylene glycol 3350 17 17 g PO DAILY PRN 12/22/19 03/18/23 gram/dose oral powder naratriptan 2.5 mg tablet 2.5 mg PO BID PRN 03/27/20 03/18/23 estradiol 1 mg tablet 1 mg PO BID 06/10/21 03/18/23 cholecalciferol (vitamin D3) 50 50 mcg PO DAILY 11/21/21 03/18/23 mcg (2,000 unit) capsule metformin 500 mg tablet,extended 1,000 mg PO BID 11/21/21 03/18/23 release 24 hr dulaglutide 1.5 mg/0.5 mL 3 mg subcut QWEEK 12/18/21 03/18/23 subcutaneous pen injector (Trulicity) losartan 25 mg tablet 25 mg PO DAILY 12/18/21 03/18/23 hydrocortisone 2.5 % topical cream 1 applic topical QID #30 grams 12/31/21 03/18/23 naproxen 250 mg tablet 250 mg PO BID PRN 04/16/22 03/18/23 acetaminophen 500 mg capsule 1,000 mg PO Q8H PRN PRN #30 caps 05/13/22 03/18/23 hydromorphone 2 mg tablet 2 - 4 mg PO Q6H PRN pain #20 tabs 05/13/22 03/18/23 ibuprofen 600 mg tablet 600 mg PO TID #30 tabs 05/13/22 03/18/23 lamotrigine 100 mg tablet 100 mg PO HS 09/08/22 03/18/23 (Lamictal) clonazepam 1 mg tablet 1 mg PO BID 11/14/22 03/18/23 melatonin 10 mg tablet 10 mg PO HS PRN 12/23/22 04/26/23 bupropion HCl 150 mg tablet,12 hr 150 mg PO BID 03/03/23 03/18/23 sustained-release (Wellbutrin SR) duloxetine 40 mg capsule,delayed 40 mg PO DAILY 03/03/23 03/18/23 release sprinkle loratadine 10 mg capsule 10 mg PO DAILY 03/03/23 03/18/23 Previous Rx's Medication Instructions Recorded metoprolol succinate 50 mg 50 mg PO DAILY #30 tabs 03/21/19 tablet,extended release 24 hr aspirin 81 mg tablet,delayed 81 mg PO DAILY Prevent blood clot 09/30/19 release #14 tabs hydrocortisone 2.5 % topical cream 1 applic topical QID #30 grams 12/31/21 acetaminophen 500 mg capsule 1,000 mg PO Q8H PRN PRN #30 caps 05/13/22 hydromorphone 2 mg tablet 2 - 4 mg PO Q6H PRN pain #20 tabs 05/13/22 ibuprofen 600 mg tablet 600 mg PO TID #30 tabs 05/13/22 Allergies Allergy/AdvReac Type Severity Reaction Status Date / Time Penicillins Allergy Severe throat Verified 03/18/23 08:14 closes Sulfa (Sulfonamide Allergy Mild Hives Verified 03/18/23 08:14 Antibiotics) lactose AdvReac Diarrhea Verified 03/18/23 08:14 General RENATO: 2 PFSH All Active Problems (Updated 03/18/23 @ 09:10 by Prudencio Sims MD) Chest pain, unspecified (Acute) Hypomagnesemia (Acute) Hypotension (Acute) Pulmonary hypertension (Chronic) Acute respiratory failure with hypoxia (Acute) Pulmonary edema (Acute) Acute respiratory distress (Acute) COVID-19 (Acute) Bilateral carpal tunnel syndrome (Acute) S/P R ECTR: 05/13/2022 Amplified musculoskeletal pain (Acute) Tendonitis of long head of biceps brachii of right shoulder (Acute) Bursitis of right shoulder (Acute) Traumatic tear of right rotator cuff (Acute) Calcific tendinitis of right shoulder (Acute) 40mg depo-medrol injection: 02/11/2022 Lateral epicondylitis of right elbow (Acute) 40mg depo-medrol injection: 02/11/2022 Hematest positive stools (Acute) Cardiomyopathy (Chronic) last echocardiogram 01/27/2019, LVEF 50-55%, no regional wall motion abnormalities, mild LVH, mild MR; normal RV size and function Bipolar disorder (Chronic) 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 (Acute 01/25/14) Atypical chest pain (Acute) Type 2 diabetes mellitus (Chronic) DVT prophylaxis (Acute) Palpitations (Acute) Spell of altered consciousness (Acute) Elevated brain natriuretic peptide (BNP) level (Acute) Chest pain (Acute) Screening for colon cancer (Acute) Tobacco use (Acute) Fecal occult blood test positive (Acute) Medical History (Updated 03/18/23 @ 09:10 by Prudencio Sims MD) Acute kidney injury Anxiety 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 (01/25/14) Bursitis of left shoulder (~03/2019) CAD (coronary artery disease) mild non-obstructive disease per cardiac cath [place] [facility] [place]/07/[place], more recent repeat cath unchanged but with pulmonary HTN Carpal tunnel syndrome, left Cervical radiculopathy bilateral Change in mental status Chronic migraine (03/07/15) Chronic pain syndrome Dehydration Depression Diabetes Discharge planning issues Dizziness, nonspecific Dyspnea Elbow fracture, right Fatigue Hyperlipidemia Hyperthyroidism Impingement syndrome of left shoulder (~03/2019) Lactose intolerance Left rotator cuff tear (~03/2019) Medication overuse headache (03/07/15) Migraine headache with aura (03/07/15) Migraine headache without aura (03/07/15) Morbid obesity Myalgia Orthostasis Polycystic ovaries Shortness of breath Splenomegaly Suicidal ideation Tachycardia Tendinitis of long head of biceps brachii of left shoulder (~03/2019) Unresponsive episode Urinary incontinence Surgical History History of arthroscopy of left shoulder History of section x2 History of endometrial ablation Hx of cardiac catheterization 08/2021-no stent placed Previous back surgery S/P hysterectomy Social History Smoking/Tobacco Use Status: Former Tobacco Use Quit status: quit date established Smoking risk assessment performed?: Yes Alcohol Intake: never Drug use: Never Substance use type: does not use Number of Children: 3 Current gender identity: female What is your relationship status?: Panel score (0-1 are the most socially isolated patients): 0 What type of physical activity do you participate in: none Do you feel safe at home: Yes Do you feel safe in your relationship?: Yes Exam Narrative Exam Narrative: General: Well-appearing in no acute distress speaking in complete sentences. Head: Normocephalic, atraumatic. Eye: Pupils equal, round reactive to light. Extraocular eye movements intact. No conjunctival injection. No scleral icterus. Ear, nose, mouth, throat: Grossly normal inspection. Normal voice, handling secretions normally. Neck: Trachea midline. Cardiovascular: Well-perfused distal extremities. Regular rate and rhythm. No significant lower extremity pitting edema. Difficult to assess JVD secondary to body habitus. Clear lungs bilaterally. Respiratory: Nonlabored respiration. Clear lungs bilaterally. Gastrointestinal: Nondistended abdomen. Soft nontender abdomen. Musculoskeletal: No edema. Moving all 4 extremities spontaneously. Skin: Normal for age and race, grossly normal temperature and turgor. No acute rash. Neurologic: Alert and appropriate, no apparent acute deficits. Psychiatric: Mood and manner are appropriate. Grooming and personal hygiene are appropriate.
--- NOTE | 2023-03-18 08:36 | DI.RAD_ITS ---
Exam(s) XR CHEST 2V PA LATERAL EXAM: XR CHEST 2V PA LATERAL CLINICAL HISTORY: Chest pain TECHNIQUE: 2D digital imaging was performed. COMPARISON: CR,XR XR PORTABLE CHEST AP POST LINE from 09/08/2022 FINDINGS: HEART: Normal size. Aorta: Not dilated. PULMONARY VASCULATURE: Normal. LUNGS: Clear. PLEURAL SPACE: No pleural effusion or pneumothorax. BONE:Unremarkable for age. IMPRESSION: No acute abnormality. DATA REPOSITORY: RADIATION DOSE DELIVERED:
[2023-03-18 08:46] LABS: Abs Immature Grans 0.02 10^3/uL (0.0-0.06); Absolute Basophil Count 0.04 10^3/uL (0.0-0.2); Absolute Eosinophil Count 0.14 10^3/uL (0.0-0.7); Absolute Lymphocyte Count 2.31 10^3/uL (1.2-3.4); Absolute Monocyte Count 0.29 10^3/uL (0.1-0.8); Absolute Neutrophil Count 2.29 10^3/uL (1.2-6.7); Basophils % 0.8; Eosinophils % 2.8; HCT 39.6 % (36.0-46.0); HGB 13.4 g/dL (11.2-15.7); Immature Grans % 0.4; Lymphocytes % 45.4; MCH 30.2 pg (27.0-33.0); MCHC 33.8 % (32.0-36.0); MCV 89 fL (80-95); MPV 9.3 fL (8.0-11.0); Monocytes % 5.7; Neutrophils % 44.9; Platelet Count 230 10^3/uL (130-400); RBC 4.44 10^6/uL (3.93-5.22); RDW 14.4 % (11.7-14.6); RDW-SD 46.7 fL; WBC 5.09 10^3/uL (4.4-10.8)
[2023-03-18] MEDS: Famotidine 20 MG TAB 40 MG PO (08:46)
[2023-03-18] MEDS: Mylanta Suspension 30 ML CUP PO (08:46)
[2023-03-18 09:02] LABS: ALT 23 U/L (14-59); AST 19 U/L (15-37); Albumin 3.3 g/dL (3.4-5.0); Alkaline Phosphatase 62 U/L (46-116); Anion Gap 6.7 mmol/L (3-11); BUN 9 mg/dL (7-18); Bilirubin, Total 0.4 mg/dL (0.2-1.0); CO2 27.3 mmol/L (21.0-32.0); CREATININE 0.7 mg/dL (0.55-1.02); Chloride 103 mmol/L (98-107); Estimated GFR 107.28 (mL/min/1.73m2); Glucose 153 mg/dL (74-106); Lipase 129 U/L (16-77); Magnesium 1.5 mg/dL (1.8-2.4); Potassium 4.2 mmol/L (3.5-5.1); Sodium 137 mmol/L (136-145); Total Protein 6.9 g/dL (6.4-8.2); Troponin I < 50 ng/L (<or=60)
[2023-03-18] MEDS: Magnesium Oxide 400 MG TAB PO (09:34)
[2023-03-18 09:35] LABS: D-Dimer 446 ng/mlFEU (<500)
== END 2023-03-18 09:45 | disposition home or self-care (01) ==
PROVIDERS: Emergency Provider Emergency Medicine; PCP Family Medicine
DX: R07.9 Chest pain, unspecified (principal); E83.42 Hypomagnesemia; E11.65 Type 2 diabetes mellitus with hyperglycemia; R74.8 Abnormal levels of other serum enzymes; I25.10 Atherosclerotic heart disease of native coronary artery without angina pectoris; I10 Essential (primary) hypertension; Z79.82 Long term (current) use of aspirin
CPT/HCPCS: 36415; 80053; 83690; 93005; 99283; 71046; 83735; 84484; 85025; 85379; 93010

== ENCOUNTER 2023-03-21 12:25 | Outpatient (REF) | payer MEDICARE, MEDICAID, SELFPAY ==
[2023-03-21 16:36] LABS: Bacteria Rare HPF (Negative); C & S Indicated? C&S Done As Ordered; Casts Negative LPF (Negative); Crystals Negative HPF (Negative); Epithelial Cells Few HPF (Negative); Mucus Negative (Negative); RBC 0-2 HPF (0-2); WBC 0-2 HPF (0-5)
[2023-03-23 13:01] LABS: Chlamydia Result Negative (Negative); GC Result Negative (Negative)
== END 2023-03-21 12:26 | disposition home or self-care (01) ==
LOC: LBN 12:25
PROVIDERS: PCP Family Medicine; Visit Provider Physician Assistant Medical
DX: R10.2 Pelvic and perineal pain (principal)
CPT/HCPCS: 87491; 87591; 81015; 87086; 87480; 87510; 87660

== ENCOUNTER 2023-03-22 09:48 | Emergency (ER) | payer MEDICARE, MEDICAID, SELFPAY ==
[2023-03-22 09:56] VITALS: BP 141/82; PULSE 105; RESP 15; TEMP 36.4; O2SAT 95
--- NOTE | 2023-03-22 10:17 | ED.GENADUL_ITS ---
Discharge Plan Disposition Patient Disposition: Home Condition: Stable Discharge Details Clinical Impression: Acute vulvovaginitis Primary Care Provider: Edie Ellis ED Provider: Oscar Lorenzana Home Meds and New Rx's Prescriptions: New fluconazole [Diflucan] 150 mg tablet 150 mg PO ONCE Qty: 1 0RF Rx Instructions: as a single dose to take on 5/3 if not improving Continued metoprolol succinate 50 mg tablet extended release 24 hr 50 mg PO DAILY Qty: 30 11RF naproxen 250 mg tablet 250 mg PO BID PRN clonazepam 1 mg tablet 1 mg PO BID melatonin 10 mg tablet 10 mg PO HS PRN loratadine 10 mg capsule 10 mg PO DAILY duloxetine 40 mg capsule, delayed rel sprinkle 40 mg PO DAILY bupropion HCl [Wellbutrin SR] 150 mg tablet sustained-release 12 hr 150 mg PO BID vitamin [id number] acid 1 EACH tablet 1 ea PO DAILY Patient Comments: 1000 mcg cholecalciferol (vitamin D3) 50 mcg (2,000 unit) capsule 50 mcg PO DAILY metformin 500 mg tablet extended release 24 hr 1,000 mg PO BID Trulicity 1.5 mg/0.5 mL pen injector 3 mg subcut QWEEK losartan 25 mg tablet 25 mg PO DAILY rosuvastatin [Crestor] 5 MG tablet 10 mg PO QPM naratriptan 2.5 mg tablet 2.5 mg PO BID PRN riboflavin (vitamin B2) [Vitamin B-2] 50 MG tablet 200 mg PO BID pregabalin [Lyrica] 75 MG capsule 100 mg PO TID Patient Comments: 100 mg am, 100 mg 2 pm, 100 mg at HS polyethylene glycol 3350 17 gram/dose Powder 17 g PO DAILY PRN levothyroxine [Synthroid] 25 MCG tablet 50 mcg PO HS magnesium oxide 400 MG tablet 800 mg PO BID omeprazole 20 mg Capsule,Delayed Release(Dr/Ec) 20 mg PO DAILY prochlorperazine maleate 10 mg Tablet 10 mg PO DAILY PRN (Reason: Headache) albuterol sulfate [Ventolin HFA] 90 mcg/actuation Hfa Aerosol Inhaler 2 puff INHALATION QID PRN naloxone [Narcan] 4 mg/actuation [place],Non-Aerosol 1 spray INTRANASAL ONCE PRN Patient Comments: Never used. valacyclovir 1 gram tablet 500 mg PO QHS aspirin 81 mg tablet,delayed release (DR/EC) 81 mg PO DAILY Qty: 14 0RF Rx Instructions: Take 1 daily with a meal for 30 days estradiol 1 mg tablet 1 mg PO BID Patient Comments: TAKE 1 TABLET BY MOUTH EVERY MORNING THEN 2 TABLETS EVERY EVENING hydrocortisone 2.5 % cream 1 applic topical QID Qty: 30 6RF acetaminophen 500 mg capsule 1,000 mg PO Q8H PRN PRNQty: 30 0RF ibuprofen 600 mg tablet 600 mg PO TID Qty: 30 0RF hydromorphone 2 mg tablet 2 - 4 mg PO Q6H PRN (Reason: pain) Qty: 20 0RF lamotrigine [Lamictal] 100 mg tablet 100 mg PO HS Patient Comments: TAKE 1 TABLET BY MOUTH EVERY DAY Discharge Instructions Instructions: Yeast Infection (ED) Additional Instructions: Please continue to monitor symptoms and if you have any new or significant worsening of symptoms feel free to return to the emergency department or follow- up with primary care for reassessment. Otherwise take medication as prescribed and keep area dry. Referrals: Edie Ellis MD [Primary Care Provider] - 5 days (If not improving) Medical Decision Making Patient presenting to the emergency department for chief complaint of vaginal discomfort. She states 4 days ago she started having some pain and discomfort around her vagina. She does state that it hurts the skin when she urinates but denies any burning with actual urination. She does state some vaginal discharge along with some nausea. Patient reports that she was seen by urgent care yesterday for similar complaint which they performed urinalysis and urine culture, and multiple vaginal swabs. Patient denies any significant change in symptoms except for slight bleeding when she wipes. Patient has history of hysterectomy and is on hormone therapy. Did review patient's labs from urgent care visit and patient is positive for Paola preliminary urine culture shows no concerning findings and patient still pending GC chlamydia. Discussed with both patient and partner risk for potential STI which they both deny at this time. We will treat patient with Diflucan. Patient did defer on examination which I feel is appropriate given that she just was examined yesterday and had all the appropriate work-up done at that evaluation. After discussion of diagnosis and plan of care patient has no further needs, questions, or concerns and states clear understanding to return to the emergency department for any worsening symptoms. This documentation was generated using [employer] system, please disregard any oddities of phrase or misspellings. Lab Data Lab results reviewed: Yes I reviewed the patient's lab results. HPI General Mode of arrival: ambulatory . Date/Time Provider Initiated Documentation: 03/22/23 09:50 . Limitations to Documentation: no limitations . Information obtained by: patient and RN notes reviewed . History of Present Illness 47 year old F presents to the emergency department with the chief complaint of Vaginal burning and discomfort, described as moderate and severe, with intensity rated at 9. Quality is described as burning, and is localized to the genitals. Patient reports no radiation. Patient started experiencing this day(s) (4) and it has been constant. No relieving factors improve symptom(s), No exacerbating factors reported . Patient notes no other symptoms.. Patient did receive the following treatments prior to arrival, none Related Data Home Medications Medication Instructions Recorded Confirmed rosuvastatin 5 mg tablet (Crestor) 10 mg PO QPM 06/28/13 03/22/23 riboflavin (vitamin B2) 50 mg 200 mg PO BID 03/13/15 03/22/23 tablet (Vitamin B-2) levothyroxine 25 mcg tablet 50 mcg PO HS 03/05/17 03/22/23 (Synthroid) magnesium oxide 400 mg (241.3 mg 800 mg PO BID 03/05/17 03/22/23 magnesium) tablet pregabalin 75 mg capsule (Lyrica) 100 mg PO TID 03/06/17 03/22/23 vitamin B12 500 mcg-folic acid 400 1 ea PO DAILY 03/11/17 03/22/23 mcg tablet albuterol sulfate 90 mcg/actuation 2 puff inhalation QID PRN 03/10/19 03/22/23 aerosol inhaler (Ventolin HFA) naloxone 4 mg/actuation nasal 1 spray intranasal ONCE PRN 03/10/19 03/22/23 spray (Narcan) omeprazole 20 mg capsule,delayed 20 mg PO DAILY 03/10/19 03/22/23 release prochlorperazine maleate 10 mg 10 mg PO DAILY PRN Headache 03/10/19 03/22/23 tablet metoprolol succinate 50 mg 50 mg PO DAILY #30 tabs 03/21/19 03/22/23 tablet,extended release 24 hr valacyclovir 1 gram tablet 500 mg PO QHS 03/21/19 03/22/23 aspirin 81 mg tablet,delayed 81 mg PO DAILY Prevent blood clot 09/30/19 03/22/23 release #14 tabs polyethylene glycol 3350 17 17 g PO DAILY PRN 12/22/19 03/22/23 gram/dose oral powder naratriptan 2.5 mg tablet 2.5 mg PO BID PRN 03/27/20 03/22/23 estradiol 1 mg tablet 1 mg PO BID 06/10/21 03/22/23 cholecalciferol (vitamin D3) 50 50 mcg PO DAILY 11/21/21 03/22/23 mcg (2,000 unit) capsule metformin 500 mg tablet,extended 1,000 mg PO BID 11/21/21 03/22/23 release 24 hr dulaglutide 1.5 mg/0.5 mL 3 mg subcut QWEEK 12/18/21 03/22/23 subcutaneous pen injector (Trulicity) losartan 25 mg tablet 25 mg PO DAILY 12/18/21 03/22/23 hydrocortisone 2.5 % topical cream 1 applic topical QID #30 grams 12/31/21 03/22/23 naproxen 250 mg tablet 250 mg PO BID PRN 04/16/22 03/22/23 acetaminophen 500 mg capsule 1,000 mg PO Q8H PRN PRN #30 caps 05/13/22 03/22/23 hydromorphone 2 mg tablet 2 - 4 mg PO Q6H PRN pain #20 tabs 05/13/22 03/22/23 ibuprofen 600 mg tablet 600 mg PO TID #30 tabs 05/13/22 03/22/23 lamotrigine 100 mg tablet 100 mg PO HS 09/08/22 03/22/23 (Lamictal) clonazepam 1 mg tablet 1 mg PO BID 11/14/22 03/22/23 melatonin 10 mg tablet 10 mg PO HS PRN 11/14/22 03/22/23 bupropion HCl 150 mg tablet,12 hr 150 mg PO BID 03/03/23 03/22/23 sustained-release (Wellbutrin SR) duloxetine 40 mg capsule,delayed 40 mg PO DAILY 03/03/23 03/22/23 release sprinkle loratadine 10 mg capsule 10 mg PO DAILY 03/03/23 03/22/23 fluconazole 150 mg tablet 150 mg PO ONCE #1 tab 03/22/23 (Diflucan) Previous Rx's Medication Instructions Recorded metoprolol succinate 50 mg 50 mg PO DAILY #30 tabs 03/21/19 tablet,extended release 24 hr aspirin 81 mg tablet,delayed 81 mg PO DAILY Prevent blood clot 09/30/19 release #14 tabs hydrocortisone 2.5 % topical cream 1 applic topical QID #30 grams 12/31/21 acetaminophen 500 mg capsule 1,000 mg PO Q8H PRN PRN #30 caps 05/13/22 hydromorphone 2 mg tablet 2 - 4 mg PO Q6H PRN pain #20 tabs 05/13/22 ibuprofen 600 mg tablet 600 mg PO TID #30 tabs 05/13/22 fluconazole 150 mg tablet 150 mg PO ONCE #1 tab 03/22/23 (Diflucan) Allergies Allergy/AdvReac Type Severity Reaction Status Date / Time Penicillins Allergy Severe throat Verified 03/18/23 08:14 closes Sulfa (Sulfonamide Allergy Mild Hives Verified 03/18/23 08:14 Antibiotics) lactose AdvReac Diarrhea Verified 03/18/23 08:14 General Stated Complaint: [employer]: 3 Review of Systems Constitutional Constitutional: Denies body ache(s), Denies chills, Denies fever(s) and Denies malaise Cardiovascular Cardiovascular: Denies chest pain Respiratory Respiratory: Reports system reviewed and no additional complaints, except as documented Gastrointestinal Gastrointestinal: Denies abdominal pain, Reports nausea and Denies vomiting Genitourinary Genitourinary: Reports as per HPI, Denies hematuria, Denies genital lesions, Reports dysuria, Denies urinary incontinence, Denies urinary hesitancy, Denies urinary urgency, Denies vaginal discharge and Reports other (Labial pain) Neurologic Neurologic: Denies confusion Psychiatric Psychiatric: Denies confusion PFSH All Active Problems (Updated 03/22/23 @ 10:18 by Oscar Lorenzana NP) Chest pain, unspecified (Acute) Hypomagnesemia (Acute) Acute vulvovaginitis (Acute) Hypotension (Acute) Pulmonary hypertension (Chronic) Acute respiratory failure with hypoxia (Acute) Pulmonary edema (Acute) Acute respiratory distress (Acute) COVID-19 (Acute) Bilateral carpal tunnel syndrome (Acute) S/P R ECTR: 05/13/2022 Amplified musculoskeletal pain (Acute) Tendonitis of long head of biceps brachii of right shoulder (Acute) Bursitis of right shoulder (Acute) Traumatic tear of right rotator cuff (Acute) Calcific tendinitis of right shoulder (Acute) 40mg depo-medrol injection: 02/11/2022 Lateral epicondylitis of right elbow (Acute) 40mg depo-medrol injection: 02/11/2022 Hematest positive stools (Acute) Cardiomyopathy (Chronic) last echocardiogram 01/27/2019, LVEF 50-55%, no regional wall motion abnormalities, mild LVH, mild MR; normal RV size and function Bipolar disorder (Chronic) 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 (Acute 01/25/14) Atypical chest pain (Acute) Type 2 diabetes mellitus (Chronic) DVT prophylaxis (Acute) Palpitations (Acute) Spell of altered consciousness (Acute) Elevated brain natriuretic peptide (BNP) level (Acute) Chest pain (Acute) Screening for colon cancer (Acute) Tobacco use (Acute) Fecal occult blood test positive (Acute) Medical History (Updated 03/22/23 @ 10:18 by Oscar Lorenzana NP) Acute kidney injury Anxiety 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 (01/25/14) Bursitis of left shoulder (~03/2019) CAD (coronary artery disease) mild non-obstructive disease [place] cardiac [place] [facility] [place], more recent repeat cath unchanged but with pulmonary HTN Carpal tunnel syndrome, left Cervical radiculopathy bilateral Change in mental status Chronic migraine (03/07/15) Chronic pain syndrome Dehydration Depression Diabetes Discharge planning issues Dizziness, nonspecific Dyspnea Elbow fracture, right Fatigue Hyperlipidemia Hyperthyroidism Impingement syndrome of left shoulder (~03/2019) Lactose intolerance Left rotator cuff tear (~03/2019) Medication overuse headache (03/07/15) Migraine headache with aura (03/07/15) Migraine headache without aura (03/07/15) Morbid obesity Myalgia Orthostasis Polycystic ovaries Shortness of breath Splenomegaly Suicidal ideation Tachycardia Tendinitis of long head of biceps brachii of left shoulder (~03/2019) Unresponsive episode Urinary incontinence Surgical History History of arthroscopy of left shoulder History of section x2 History of endometrial ablation Hx of cardiac catheterization 08/2021-no stent placed Previous back surgery S/P hysterectomy Social History Smoking/Tobacco Use Status: Former Tobacco Use Quit status: quit date established Smoking risk assessment performed?: Yes Alcohol Intake: never Drug use: Never Substance use type: does not use Number of Children: 3 Current gender identity: female What is your relationship status?: Panel score (0-1 are the most socially isolated patients): 0 What type of physical activity do you participate in: none Do you feel safe at home: Yes Do you feel safe in your relationship?: Yes Female Reproductive History Menstrual control method: permanent sterilization Exam Const General: cooperative, no acute distress and not ill appearing Orientation: alert, awake and oriented x3 HENMT Mouth: moist mucous membranes Resp Effort & Inspection: normal respiratory effort, able to speak in complete sentences and no respiratory distress Auscultation: clear to auscultation bilaterally Cardio Rate: regular rate Rhythm: regular rhythm Heart Sounds: S1 normal and S2 normal General: deferred Neuro General: patient alert, patient awake, patient oriented x3, moves all extremities and no focal motor deficits Course Vital Signs Vital signs: Vital Signs Temperature 36.4 C L 03/22/23 09:56 Pulse 105 H 03/22/23 09:56 Respiratory Rate 15 03/22/23 09:56 Blood Pressure 141/82 H 03/22/23 09:56 Pulse Oximetry 95 03/22/23 09:56 Temperature 36.4 C L 03/22/23 09:56 Temperature Source Temporal Artery Scan 03/22/23 09:56 Pulse 105 H 03/22/23 09:56 Respiratory Rate 15 03/22/23 09:56 Respiratory Effort Normal 03/22/23 09:58 Blood Pressure 141/82 H 03/22/23 09:56 Blood Pressure Position Sitting 03/22/23 09:56 Pulse Oximetry 95 03/22/23 09:56 Oxygen Delivery Method Room Air 03/22/23 09:56 Oxygen Flow Rate 0 03/22/23 09:56 Pain Level 9 03/22/23 09:56
[2023-03-22] MEDS: Fluconazole 150 MG TAB PO (10:20)
== END 2023-03-22 10:29 | disposition home or self-care (01) ==
PROVIDERS: Emergency Provider Nurse Practitioner Family; PCP Family Medicine
DX: N76.0 Acute vaginitis (principal)
CPT/HCPCS: 99283

== ENCOUNTER 2023-04-08 13:43 | Outpatient (CLI) | payer MEDICARE, MEDICAID, SELFPAY ==
--- NOTE | 2023-04-08 | DI.RAD_ITS ---
Exam(s) XR KNEE LT 3V AP,LAT,ARON EXAM: XR KNEE LT 3V AP,LAT,ARON CLINICAL HISTORY: LT KNEE JT PAIN > 3 MOS, M25.562. TECHNIQUE: 2D digital imaging was performed. Three views. COMPARISON: No exams were available for comparison FINDINGS: BONES: No acute fracture is present. No bony destructive lesion is seen. JOINTS: The knee is normally aligned. No joint effusion is seen. Mild periarticular spurring, great est at patellofemoral joint.. SOFT TISSUE: Normal. IMPRESSION: Mild degenerative changes. DATA REPOSITORY: RADIATION DOSE DELIVERED:
== END 2023-04-08 14:03 ==
LOC: DI 13:47
PROVIDERS: PCP Family Medicine; Visit Provider Family Medicine
DX: M25.562 Pain in left knee (principal)
CPT/HCPCS: 73562

== ENCOUNTER 2023-04-13 15:03 | Outpatient (CLI) | payer MEDICARE, MEDICAID, SELFPAY ==
--- NOTE | 2023-04-13 | DI.MRI_ITS ---
Exam(s) MR LOWER JOINT LT WO EXAM: MR LOWER JOINT LT WO CLINICAL HISTORY: LT KNEE INTERNAL DERANGEMENT M23.92 LT KNEE JOINT PAIN < 3 MONTHS M25.562. TECHNIQUE: Multiplanar multisequence MRI was performed. COMPARISON: MR MRI L LOWER JOINT WO CONT from 04/10/2014 CR XR KNEE LT 3V AP,LAT,ARON from 04/08/2023 FINDINGS: BONES: There is no fracture or contusion pattern. JOINTS: There is loss of the articular cartilage in the lateral patellar facet with subchondral edema present. There is also thinning of the articular cartilage overlying the medial femoral condyle. N o effusion is present. TENDONS: Extensor mechanism: Unremarkable. Medial retinaculum: Unremarkable. Lateral retinaculum: Unremarkable. Popliteus: Unremarkable. MUSCLES: Unremarkable. MENISCI: The medial meniscus is unremarkable. The lateral meniscus is unremarkable. SOFT TISSUES: There is a small popliteal cyst. LIGAMENTS: Anterior Cruciate: Unremarkable. Posterior Cruciate: Unremarkable. Medial Collateral:Unremarkable. Lateral Collateral: Unremarkable. OTHER: IMPRESSION: 1. There is no evidence of a meniscal or ligament tear. 2. 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 DATA REPOSITORY:
== END 2023-04-13 15:23 ==
PROVIDERS: PCP Family Medicine; Visit Provider Family Medicine
DX: M23.92 Unspecified internal derangement of left knee (principal); M25.562 Pain in left knee; M94.262 Chondromalacia, left knee
CPT/HCPCS: 73721

== ENCOUNTER 2023-04-15 15:45 | Outpatient (REF) | payer MEDICARE, MEDICAID, SELFPAY ==
[2023-04-15 20:17] LABS: COMMENT (LAB VIEW ONLY) 69.65 mg/dL; Microalb ug/mg Crea 15.6 ug/mg Cr
== END 2023-04-15 15:46 | disposition home or self-care (01) ==
LOC: NCHCN 15:45
PROVIDERS: PCP Family Medicine; Visit Provider Family Medicine
DX: E11.9 Type 2 diabetes mellitus without complications (principal)
CPT/HCPCS: 82043; 82570

== ENCOUNTER → 2023-04-28 13:42 | Outpatient (BNVA) | payer MEDICARE, MEDICAID, SELFPAY | PROVIDERS: PCP Family Medicine; Referring Provider Family Medicine; Visit Provider Student in an Organized Health Care Education/Training Program | DX: M17.12 Unilateral primary osteoarthritis, left knee (principal) | CPT/HCPCS: 99213 ==

== ENCOUNTER 2023-05-04 04:52 | Outpatient (CLI) | payer MEDICARE, MEDICAID, SELFPAY ==
[2023-05-04 15:25] LABS: Anion Gap 8.3 mmol/L (3-11); BUN 10 mg/dL (7-18); CO2 28.7 mmol/L (21.0-32.0); CREATININE 0.8 mg/dL (0.55-1.02); Calcium 9.3 mg/dL (8.5-10.1); Chloride 99 mmol/L (98-107); Glucose 178 mg/dL (74-106); Potassium 4.2 mmol/L (3.5-5.1); Sodium 136 mmol/L (136-145)
== END 2023-05-04 04:53 | disposition home or self-care (01) ==
PROVIDERS: PCP Family Medicine; Visit Provider Physician Assistant
DX: I50.20 Unspecified systolic (congestive) heart failure (principal)
CPT/HCPCS: 36415; 80048

== ENCOUNTER 2023-08-12 16:07 | Inpatient (IN) | payer MEDICARE, MEDICAID, SELFPAY ==
[2023-08-12] VITALS (43 sets, daily range): BP systolic 83–124; BP diastolic 49–77; PULSE 81–101; RESP 11–20; TEMP 36.3–36.6; O2SAT 93–100
--- NOTE | 2023-08-12 16:00 | RT.EKG_ITS ---
APPROVED REPORT Exam: Resting ECG Reason for Exam: overdose Patient Location: E HR:108 bpm ECG Measurements Heart Rate 108 AXIS WV 154 P 8 QRSd 77 QRS 60 QT 350 T 32 QTc 469 Conclusion Sinus tachycardia...rate> 99 Low voltage, precordial leads...precordial leads <1.0mV Consider anteroseptal infarct...Q >30mS, dimin R, V1-V2 little change vs 03/15
[2023-08-12 16:21] LABS: Abs Immature Grans 0.03 10^3/uL (0.0-0.06); Absolute Basophil Count 0.05 10^3/uL (0.0-0.2); Absolute Eosinophil Count 0.29 10^3/uL (0.0-0.7); Absolute Lymphocyte Count 3.43 10^3/uL (1.2-3.4); Absolute Monocyte Count 0.52 10^3/uL (0.1-0.8); Basophils % 0.6; Eosinophils % 3.4; HCT 43.7 % (36.0-46.0); HGB 14.9 g/dL (11.2-15.7); Immature Grans % 0.3; Lymphocytes % 39.8; MCHC 34.1 % (32.0-36.0); MCV 88 fL (80-95); Neutrophils % 49.9; Platelet Count 231 10^3/uL (130-400); RBC 4.97 10^6/uL (3.93-5.22); RDW 13.4 % (11.7-14.6); RDW-SD 43.6 fL; WBC 8.62 10^3/uL (4.4-10.8)
--- NOTE | 2023-08-12 16:26 | W.ED.GENAD ---
Discharge Plan Discharge Details Chief Complaint: OD/Poison Admit Date/Time: 08/12/23 17:43 Admit Provider: Bonnie Joe Attending Provider: Bonnie Joe Primary Care Provider: Edie Ellis ED Provider: Destiney Miller Discharge Data Discharge Date/Time-TO BE ENTERED AT DEPARTURE: 08/12/23 18:20 Medical Decision Making Poison control advised that the patient could get mildly hypotensive from all the clonazepam. They advised that they probably would not give her flumazenil. I did say I do not think she has contraindications to this except the fact that she is on the med at baseline. 1720 Patient appears to be intermittently desatting. Wonder if she has MENG. We have placed her on a couple of liters of oxygen by nasal cannula and her oxygen saturation is 99%. She appears to be breathing fine but I will obtain a VBG to assure that she is not retaining CO2. We will admit her. Blood pressure is in the 90s but this was to be expected. Case d/w female hospitalist who concurred with admit for obs and then psych eval. This was an intentional OD. Medical Records Medical records reviewed: Yes I reviewed the patient's medical records. Lab Data Lab results reviewed: Yes I reviewed the patient's lab results. Lab results narrative: WNL Labs: Note VBG was acceptable. ECG Data Attestation: I personally reviewed and interpreted this ECG (s) as follows: (ST 110, low voltage, little change vs 03/18/23) HPI General Date/Time Provider Initiated Documentation: 08/12/23 16:11. HPI Narrative: This 48-year-old female patient presents with a chief complaint of clonazepam overdose sustained about an hour ago. Patient reports that been family issues and her older children who are in their 20s took her 13-year-old from the house. [place] suicidal and took 30-45 clonazepam, may be more. The patient is drowsy in the ER but has good vital signs. She is mildly tachycardic. I discussed the case with [place] poison control. This is mostly symptomatic and supportive care. They concurred that we will not give charcoal or sorbitol at this time due to the patient's drowsiness. The patient does have 2 clean incisions from a recently placed AICD. This is for dilated cardiomyopathy. The patient has no other complaints at this time. Related Data Home Medications Medication Instructions Recorded Confirmed rosuvastatin 5 mg tablet (Crestor) 10 mg PO QPM 06/28/13 08/13/23 riboflavin (vitamin B2) 50 mg 200 mg PO BID 03/13/15 08/13/23 tablet (Vitamin B-2) levothyroxine 25 mcg tablet 50 mcg PO HS 03/05/17 08/13/23 (Synthroid) magnesium oxide 400 mg (241.3 mg 400 mg PO DAILY 03/05/17 08/13/23 magnesium) tablet albuterol sulfate 90 mcg/actuation 2 puff inhalation QID PRN 03/10/19 08/13/23 aerosol inhaler (Ventolin HFA) naloxone 4 mg/actuation nasal 1 spray intranasal ONCE PRN 03/10/19 08/13/23 spray (Narcan) omeprazole 20 mg capsule,delayed 20 mg PO DAILY 03/10/19 08/13/23 release prochlorperazine maleate 10 mg 10 mg PO DAILY PRN Headache 03/10/19 08/13/23 tablet valacyclovir 1 gram tablet 500 mg PO QHS 03/21/19 08/13/23 aspirin 81 mg tablet,delayed 81 mg PO DAILY Prevent blood clot 09/30/19 08/13/23 release #14 tabs polyethylene glycol 3350 17 17 g PO DAILY PRN 12/22/19 08/13/23 gram/dose oral powder naratriptan 2.5 mg tablet 2.5 mg PO BID PRN 03/27/20 08/13/23 estradiol 1 mg tablet See Rx Instructions .Route .COMPLEX 06/10/21 08/13/23 cholecalciferol (vitamin D3) 50 50 mcg PO DAILY 11/21/21 08/13/23 mcg (2,000 unit) capsule metformin 500 mg tablet,extended 1,000 mg PO BID 11/21/21 08/13/23 release 24 hr dulaglutide 1.5 mg/0.5 mL 3 mg subcut QWEEK 12/18/21 08/13/23 [facility] hydrocortisone 2.5 % topical cream 1 applic topical QID #30 grams 12/31/21 08/13/23 naproxen 250 mg tablet 500 mg PO BID PRN 04/16/22 08/13/23 acetaminophen 500 mg capsule 1,000 mg PO Q8H PRN PRN #30 caps 05/13/22 08/13/23 lamotrigine 100 mg tablet 100 mg PO HS 09/08/22 08/13/23 (Lamictal) clonazepam 1 mg tablet 1 mg PO BID PRN 11/14/22 08/13/23 melatonin 10 mg tablet 10 mg PO HS PRN 11/14/22 08/13/23 bupropion HCl 150 mg tablet,12 hr 150 mg PO BID 03/03/23 08/13/23 sustained-release (Wellbutrin SR) loratadine 10 mg capsule 10 mg PO DAILY 03/03/23 08/13/23 cyanocobalamin (vitamin B-12) 1,000 mcg PO DAILY 08/13/23 08/13/23 1,000 mcg tablet dapagliflozin propanediol 5 mg 5 mg PO DAILY 08/13/23 08/13/23 tablet (Farxiga) duloxetine 30 mg capsule,delayed 30 mg PO DAILY 08/13/23 08/13/23 release hydromorphone 2 mg tablet 4 mg PO BID 08/13/23 08/13/23 icosapent ethyl 1 gram capsule 2 g PO BID 08/13/23 08/13/23 (Vascepa) metoprolol succinate 100 mg 100 mg PO DAILY 08/13/23 08/13/23 tablet,extended release 24 hr pregabalin 100 mg capsule 100 mg PO TID 08/13/23 08/13/23 sacubitril 97 mg-valsartan 103 mg 1 tab PO BID 08/13/23 08/13/23 tablet (Entresto) Previous Rx's Medication Instructions Recorded aspirin 81 mg tablet,delayed 81 mg PO DAILY Prevent blood clot 09/30/19 release #14 tabs hydrocortisone 2.5 % topical cream 1 applic topical QID #30 grams 12/31/21 acetaminophen 500 mg capsule 1,000 mg PO Q8H PRN PRN #30 caps 05/13/22 Allergies Allergy/AdvReac Type Severity Reaction Status Date / Time Penicillins Allergy Severe throat Verified 04/28/23 13:54 closes Sulfa (Sulfonamide Allergy Mild Hives Verified 04/28/23 13:54 Antibiotics) lactose AdvReac Diarrhea Verified 04/28/23 13:54 General Stated Complaint: OD/Poison RENATO: 2 Review of Systems Constitutional Constitutional: Reports as per HPI, Denies chills, Denies fever(s), Denies headache(s) and Denies weakness Comments: somnolent but responds to verbal stimuli Eyes Eyes: Denies diplopia and Reports other (no redness) ENT Ears, Nose, Mouth, and Throat: Denies otalgia, Denies headache(s), Denies nasal congestion, Denies nasal discharge, Denies neck pain and Denies sore throat Cardiovascular Cardiovascular: Denies chest pain, Denies palpitations and Denies dyspnea Respiratory Respiratory: Denies cough and Denies dyspnea Gastrointestinal Gastrointestinal: Denies abdominal pain, Denies diarrhea, Denies nausea and Denies vomiting Genitourinary Genitourinary: Denies dysuria Musculoskeletal Musculoskeletal: Denies myalgias, Denies muscle weakness, Denies neck pain, Denies numbness and Reports other (edema) Integumentary/Breasts Skin/Breast: Denies change in pigmentation and Denies rash Neurologic Neurologic: Denies headache(s), Denies numbness and Denies weakness Endocrine Endocrine: Denies palpitations PFSH All Active Problems (Updated 08/12/23 @ 19:30 by Bonnie Joe MD) Hypomagnesemia (Acute) Toxic metabolic encephalopathy (Acute) Suicide attempt by benzodiazepine overdose (Acute) Intentional benzodiazepine overdose (Acute) Patellofemoral arthritis of left knee (Acute) Hypotension (Acute) Pulmonary hypertension (Chronic) Acute respiratory failure with hypoxia (Acute) Pulmonary edema (Acute) Acute respiratory distress (Acute) COVID-19 (Acute) Bilateral carpal tunnel syndrome (Acute) S/P R ECTR: 05/13/2022 Amplified musculoskeletal pain (Acute) Tendonitis of long head of biceps brachii of right shoulder (Acute) Bursitis of right shoulder (Acute) Traumatic tear of right rotator cuff (Acute) Calcific tendinitis of right shoulder (Acute) 40mg depo-medrol injection: 02/11/2022 Lateral epicondylitis of right elbow (Acute) 40mg depo-medrol injection: 02/11/2022 Hematest positive stools (Acute) Cardiomyopathy (Chronic) last echocardiogram 01/27/2019, LVEF 50-55%, no regional wall motion abnormalities, mild LVH, mild MR; normal RV size and function Bipolar disorder (Chronic) 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 (Acute 01/25/14) Atypical chest pain (Acute) Type 2 diabetes mellitus (Chronic) DVT prophylaxis (Acute) Palpitations (Acute) Spell of altered consciousness (Acute) Elevated brain natriuretic peptide (BNP) level (Acute) Chest pain (Acute) Screening for colon cancer (Acute) Tobacco use (Acute) Fecal occult blood test positive (Acute) Medical History (Updated 08/12/23 @ 19:30 by Bonnie Joe MD) Acute kidney injury Anxiety 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 (01/25/14) Bursitis of left shoulder (~03/2019) CAD (coronary artery disease) mild non-obstructive disease per cardiac cath report from [facility] 09/07/2013, more recent repeat cath unchanged but with pulmonary HTN Carpal tunnel syndrome, left Cervical radiculopathy bilateral Change in mental status Chronic migraine (03/07/15) Chronic pain syndrome Dehydration Depression Diabetes Discharge planning issues Dizziness, nonspecific Dyspnea Elbow fracture, right Fatigue Hyperlipidemia Hyperthyroidism Impingement syndrome of left shoulder (~03/2019) Lactose intolerance Left rotator cuff tear (~03/2019) Medication overuse headache (03/07/15) Migraine headache with aura (03/07/15) Migraine headache without aura (03/07/15) Morbid obesity Myalgia Orthostasis Polycystic ovaries Shortness of breath Splenomegaly Suicidal ideation Tachycardia Tendinitis of long head of biceps brachii of left shoulder (~03/2019) Unresponsive episode Urinary incontinence Surgical History History of arthroscopy of left shoulder History of section x2 History of endometrial ablation Hx of cardiac catheterization 08/2021-no stent placed Previous back surgery S/P hysterectomy Social History Smoking/Tobacco Use Status: Former Tobacco Use Quit status: quit date established Smoking risk assessment performed?: Yes Alcohol Intake: never Drug use: Never Substance use type: does not use Number of Children: 3 Current gender identity: female What is your relationship status?: Panel score (0-1 are the most socially isolated patients): 0 What type of physical activity do you participate in: none Do you feel safe at home: Yes Do you feel safe in your relationship?: Yes Female Reproductive History Menstrual control method: permanent sterilization Exam Const General: well developed, well groomed, not in acute distress and other (obese) Nutritional Appearance: well nourished Orientation: oriented x3 Limitations: altered mental status (somnolent) [facility] Head: normocephalic and atraumatic Ears: external ears normal Mouth: oropharynx normal and moist mucous membranes Throat: posterior oropharynx normal Eyes Conjunctivae: conjunctivae normal Neck Neck: full ROM and supple Chest Chest: normal inspection of the chest Resp Effort & Inspection: normal respiratory effort Auscultation: clear to auscultation bilaterally Cardio Rate: regular rate Rhythm: regular rhythm Heart Sounds: no murmurs and no rubs GI Inspection: normal to inspection Palpation: soft, nontender and other (non distended) Auscultation: normal bowel sounds Skin General skin exam: no rashes or lesions noted and other (pink, warm, dry) Neuro General: patient alert, patient awake and patient oriented x3 Speech: speech normal Motor: other ([place]) Sensory Exam: no sensory deficits noted Extrem General: normal to inspection, full ROM and pedal edema present Psych Mental Status: mental status grossly normal Speech and Movement: speech and movement normal Affect: normal affect Course Vital Signs Vital signs: Vital Signs Temperature 36.5 C 08/12/23 16:10 Pulse 101 H 08/12/23 16:10 Respiratory Rate 16 08/12/23 16:10 Blood Pressure 120/75 08/12/23 16:10 Pulse Oximetry 95 08/12/23 16:10 Temperature 36.5 C 08/12/23 16:10 Temperature Source Oral 08/12/23 16:10 Pulse 101 H 08/12/23 16:10 Respiratory Rate 20 08/12/23 16:14 Respiratory Effort Normal 08/12/23 16:14 Respiratory Depth Normal 08/12/23 16:14 Respiratory Pattern Normal 08/12/23 16:14 Blood Pressure 120/75 08/12/23 16:10 Blood Pressure Position Sitting 08/12/23 16:10 Pulse Oximetry 95 08/12/23 16:10 Oxygen Delivery Method Room Air 08/12/23 16:10 Oxygen Flow Rate 0 08/12/23 16:10 Pain Level 0 08/12/23 16:10 Lab/Test Results Lab/Test Results: Laboratory Tests Range/Units 08/12/23 16:14 WBC (4.4-10.8) 10^3/uL 8.62 RBC (3.93-5.22) 10^6/uL 4.97 Hgb (11.2-15.7) g/dL 14.9 Hct (36.0-46.0) % 43.7 MCV (80-95) fL 88 MCH (27.0-33.0) pg 30.0 MCHC (32.0-36.0) % 34.1 RDW (11.7-14.6) % 13.4 Plt Count (130-400) 10^3/uL 231 MPV (8.0-11.0) fL 10.0 Immature Gran % 0.3 Neutrophils % 49.9 Lymphocytes % 39.8 Monocytes % 6.0 Eosinophils % 3.4 Basophils % 0.6 Nucleated RBC % (0.0-0.3) % 0.0 Absolute Neutrophils (1.2-6.7) 10^3/uL 4.30 Absolute Lymphocytes (1.2-3.4) 10^3/uL 3.43 H Absolute Monocytes (0.1-0.8) 10^3/uL 0.52 Absolute Eosinophils (0.0-0.7) 10^3/uL 0.29 Absolute Basophils (0.0-0.2) 10^3/uL 0.05
[2023-08-12] MEDS: Normal Saline 1,000 ML 1000 ML IV (16:37)
[2023-08-12 16:38] LABS: ALT 25 U/L (14-59); AST 17 U/L (15-37); Albumin 3.3 g/dL (3.4-5.0); Alkaline Phosphatase 51 U/L (46-116); Anion Gap 9.6 mmol/L (3-11); BUN 14 mg/dL (7-18); Bilirubin, Total 0.3 mg/dL (0.2-1.0); CO2 25.4 mmol/L (21.0-32.0); CREATININE 0.6 mg/dL (0.55-1.02); Calcium 9.3 mg/dL (8.5-10.1); Chloride 102 mmol/L (98-107); Estimated GFR 110.65 (mL/min/1.73m2); Glucose 145 mg/dL (74-106); Magnesium 1.5 mg/dL (1.8-2.4); Potassium 3.8 mmol/L (3.5-5.1); Sodium 137 mmol/L (136-145)
[2023-08-12 16:39] LABS: ETHANOL BLOOD < 3.0 mg/dL (<10)
[2023-08-12 16:55] LABS: Acetaminophen < 2 ug/mL (10-30); Salicylate < 2.8 mg/dL (<2.8)
[2023-08-12 16:59] LABS: TSH (W/Ref FT4) 0.91 uIU/mL (0.36-3.74)
--- NOTE | 2023-08-12 17:46 | HPE_ITS ---
Date of service: 08/12/23 Time of Service: 17:46 Assessment and Plan Assessment and plan (1) Suicide attempt by benzodiazepine overdose: Status: Acute Assessment and plan: Admit to the ICU for monitoring. Concern for respiratory depression and possibly requiring advanced airway management. For now, the patient seems to be ventilating on her own. I did ask for end-tidal CO2 monitoring and for the RTs to be placed on alert. I've also asked to notify anesthesia. I did ask for a BiPAP to be placed in the room, but may require intubation if completely obtunded. We are not going to give flumazenil, as we were warned against this by poison control. We will trend VBGs every 4 hrs. NPO. Mental health consult once medically cleared. (2) Toxic metabolic encephalopathy: Status: Acute Assessment and plan: Due to benzodiazepine overdose. Monitor as we are treating the overdose. (3) Hypomagnesemia: Status: Acute Assessment and plan: Replete, recheck in am (4) Hypotension: Status: Acute Assessment and plan: In setting of benzodiazepine overdose, this is expected. Supportive care - IVF for now, but may require vasopressors. (5) Type 2 diabetes mellitus: Status: Chronic Assessment and plan: Hold metformin and monitor for lactic acidosis. Hold dulaglutide. Qualifiers: Diabetes mellitus intermediate teacher insulin use: without senior care use Diabetes mellitus complication status: without complication Qualified Code(s): E11.9 - Type 2 diabetes mellitus without complications (6) DVT prophylaxis: Status: Acute Assessment and plan: SCDs. Abstain from chemical DVT ppx for now due to h/o heme Positive stools (Which we will repeat). (7) Discharge planning issues: Assessment and plan: Full code admit to the ICU. Total Critical Care Time 45 minutes History of Present Illness History of Present Illness Chief Complaint: Suicide attempt by clonazepam overdose Narrative: Ms Gottlieb is a 48 year old female with PMHx of Bipolar d/o, pulmonary hypertension, dilated cardiomyopathy, T2Dm, who was brought to [facility] ED after an intentional overdose of 30-45 1 mg of clonazepam about an hour prior to presentation. Per ED provider, her respiratory status appears stable with a VBG pending, but she is drowsy. Hospitalist admission was requested. Poison control did warn the patient might become hypotensive. Her last recorded BP is 120/75. The patient is being admitted to the ICU. Reportedly, prior to this the patient's sisters had taken away her daughter, perhaps serving as a stressor prior to today's events. On my visit with her, Jammie knows she is in the hospital but cannot tell me what happened and falls promptly asleep. Review of Systems Unobtainable due to mental status PFSH All Active Problems (Updated 08/12/23 @ 19:30 by Bonnie Joe MD) Hypomagnesemia (Acute) Toxic metabolic encephalopathy (Acute) Suicide attempt by benzodiazepine overdose (Acute) Intentional benzodiazepine overdose (Acute) Patellofemoral arthritis of left knee (Acute) Hypotension (Acute) Pulmonary hypertension (Chronic) Acute respiratory failure with hypoxia (Acute) Pulmonary edema (Acute) Acute respiratory distress (Acute) COVID-19 (Acute) Bilateral carpal tunnel syndrome (Acute) S/P R ECTR: 05/13/2022 Amplified musculoskeletal pain (Acute) Tendonitis of long head of biceps brachii of right shoulder (Acute) Bursitis of right shoulder (Acute) Traumatic tear of right rotator cuff (Acute) Calcific tendinitis of right shoulder (Acute) 40mg depo-medrol injection: 02/11/2022 Lateral epicondylitis of right elbow (Acute) 40mg depo-medrol injection: 02/11/2022 Hematest positive stools (Acute) Cardiomyopathy (Chronic) last echocardiogram 01/27/2019, LVEF 50-55%, no regional wall motion abnormalities, mild LVH, mild MR; normal RV size and function Bipolar disorder (Chronic) 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 (Acute 01/25/14) Atypical chest pain (Acute) Type 2 diabetes mellitus (Chronic) DVT prophylaxis (Acute) Palpitations (Acute) Spell of altered consciousness (Acute) Elevated brain natriuretic peptide (BNP) level (Acute) Chest pain (Acute) Screening for colon cancer (Acute) Tobacco use (Acute) Fecal occult blood test positive (Acute) Medical History (Updated 08/12/23 @ 19:30 by Bonnie Joe MD) Acute kidney injury Anxiety 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 (01/25/14) Bursitis of left shoulder (~03/2019) CAD (coronary artery disease) mild non-obstructive disease per cardiac cath report from [facility] [place] [place] 09/07/2013, more recent repeat cath unchanged but with pulmonary HTN Carpal tunnel syndrome, left Cervical radiculopathy bilateral Change in mental status Chronic migraine (03/07/15) Chronic pain syndrome Dehydration Depression Diabetes Discharge planning issues Dizziness, nonspecific Dyspnea Elbow fracture, right Fatigue Hyperlipidemia Hyperthyroidism Impingement syndrome of left shoulder (~03/2019) Lactose intolerance Left rotator cuff tear (~03/2019) Medication overuse headache (03/07/15) Migraine headache with aura (03/07/15) Migraine headache without aura (03/07/15) Morbid obesity Myalgia Orthostasis Polycystic ovaries Shortness of breath Splenomegaly Suicidal ideation Tachycardia Tendinitis of long head of biceps brachii of left shoulder (~03/2019) Unresponsive episode Urinary incontinence Surgical History History of arthroscopy of left shoulder History of section x2 History of endometrial ablation Hx of cardiac catheterization 08/2021-no stent placed Previous back surgery S/P hysterectomy Social History Smoking/Tobacco Use Status: Former Tobacco Use Quit status: quit date established Smoking risk assessment performed?: Yes Alcohol Intake: never Drug use: Never Substance use type: does not use Number of Children: 3 Current gender identity: female What is your relationship status?: Panel score (0-1 are the most socially isolated patients): 0 What type of physical activity do you participate in: none Do you feel safe at home: Yes Do you feel safe in your relationship?: Yes Female Reproductive History Menstrual control method: permanent sterilization Meds Allergies and Home Medications Allergies Allergy/AdvReac Type Severity Reaction Status Date / Time Penicillins Allergy Severe throat Verified 04/28/23 13:54 closes Sulfa (Sulfonamide Allergy Mild Hives Verified 04/28/23 13:54 Antibiotics) lactose AdvReac Diarrhea Verified 04/28/23 13:54 Home Medications Medication Instructions Recorded Confirmed Type rosuvastatin 5 mg tablet (Crestor) 10 mg PO QPM 06/28/13 04/28/23 History riboflavin (vitamin B2) 50 mg 200 mg PO BID 03/13/15 04/28/23 History tablet (Vitamin B-2) levothyroxine 25 mcg tablet 50 mcg PO HS 03/05/17 04/28/23 History (Synthroid) magnesium oxide 400 mg (241.3 mg 800 mg PO BID 03/05/17 04/28/23 History magnesium) tablet pregabalin 75 mg capsule (Lyrica) 100 mg PO TID 03/06/17 04/28/23 History vitamin B12 500 mcg-folic acid 400 1 ea PO DAILY 03/11/17 04/28/23 History mcg tablet albuterol sulfate 90 mcg/actuation 2 puff inhalation QID PRN 03/10/19 04/28/23 History aerosol inhaler (Ventolin HFA) naloxone 4 mg/actuation nasal 1 spray intranasal ONCE PRN 03/10/19 04/28/23 History spray (Narcan) omeprazole 20 mg capsule,delayed 20 mg PO DAILY 03/10/19 04/28/23 History release prochlorperazine maleate 10 mg 10 mg PO DAILY PRN Headache 03/10/19 04/28/23 History tablet metoprolol succinate 50 mg 50 mg PO DAILY #30 tabs 03/21/19 04/28/23 Rx tablet,extended release 24 hr valacyclovir 1 gram tablet 500 mg PO QHS 03/21/19 04/28/23 History aspirin 81 mg tablet,delayed 81 mg PO DAILY Prevent blood clot 09/30/19 04/28/23 Rx release #14 tabs polyethylene glycol 3350 17 17 g PO DAILY PRN 12/22/19 04/28/23 History gram/dose oral powder naratriptan 2.5 mg tablet 2.5 mg PO BID PRN 03/27/20 04/28/23 History estradiol 1 mg tablet 1 mg PO BID 06/10/21 04/28/23 History cholecalciferol (vitamin D3) 50 50 mcg PO DAILY 11/21/21 04/28/23 History mcg (2,000 unit) capsule metformin 500 mg tablet,extended 1,000 mg PO BID 11/21/21 04/28/23 History release 24 hr dulaglutide 1.5 mg/0.5 mL 3 mg subcut QWEEK 12/18/21 04/28/23 History subcutaneous pen injector (Trulicity) hydrocortisone 2.5 % topical cream 1 applic topical QID #30 grams 12/31/21 04/28/23 Rx naproxen 250 mg tablet 250 mg PO BID PRN 04/16/22 04/28/23 History acetaminophen 500 mg capsule 1,000 mg PO Q8H PRN PRN #30 caps 05/13/22 04/28/23 Rx hydromorphone 2 mg tablet 2 - 4 mg PO Q6H PRN pain #20 tabs 05/13/22 04/28/23 Rx ibuprofen 600 mg tablet 600 mg PO TID #30 tabs 05/13/22 04/28/23 Rx lamotrigine 100 mg tablet 100 mg PO HS 09/08/22 04/28/23 History (Lamictal) clonazepam 1 mg tablet 1 mg PO BID 11/14/22 04/28/23 History melatonin 10 mg tablet 10 mg PO HS PRN 11/14/22 04/28/23 History bupropion HCl 150 mg tablet,12 hr 150 mg PO BID 03/03/23 04/28/23 History sustained-release (Wellbutrin SR) duloxetine 40 mg capsule,delayed 40 mg PO DAILY 03/03/23 04/28/23 History release sprinkle loratadine 10 mg capsule 10 mg PO DAILY 03/03/23 04/28/23 History fluconazole 150 mg tablet 150 mg PO ONCE #1 tab 03/22/23 04/28/23 Rx (Diflucan) sacubitril 24 mg-valsartan 26 mg 1 tab PO BID 04/28/23 04/28/23 History tablet (Entresto) Exam Narrative Exam Narrative: General: Obese female who is lethargic, arousable with painful repetitive stimuli only, promptly falls asleep Neurological: A&Ox2 when awake; lethargic, nonfocal exam Psychiatric: difficult to assess due to mental status Skin: two incisions (RUQ, under L breast) are healing well and are dressed, dry, intact HEENT: Atraumatic, normocephalic, EOMI, dry MM, clear oropharynx, no submadibular or cervical lymphadenopathy, no goiter or JVD Cardiovascular: RRR, no m/r/g Lungs: CTAB Gastrointestinal: soft, nontender, nondistended Genitourinary: deferred (no diamond yet) Extremities: no edema BLEs, 2+ pedal pulses B, no c/c Results Imaging Additional studies: EKG: ST HR 108, no acute ischemia Labs 08/12/23 16:14 08/12/23 16:14 Labs: Laboratory Results - last 24 hr 08/12/23 08/12/23 08/12/23 16:14 16:14 16:14 WBC 8.62 RBC 4.97 Hgb 14.9 Hct 43.7 MCV 88 MCH 30.0 MCHC 34.1 RDW 13.4 Plt Count 231 MPV 10.0 Immature Gran % 0.3 Neutrophils % 49.9 Lymphocytes % 39.8 Monocytes % 6.0 Eosinophils % 3.4 Basophils % 0.6 Nucleated RBC % 0.0 Absolute Neutrophils 4.30 Absolute Lymphocytes 3.43 H Absolute Monocytes 0.52 Absolute Eosinophils 0.29 Absolute Basophils 0.05 Sodium 137 Potassium 3.8 Chloride 102 Carbon Dioxide 25.4 Anion Gap 9.6 BUN 14 Creatinine 0.6 Est GFR (CKD-EPI 2020) 110.65 Glucose 145 H Calcium 9.3 Magnesium 1.5 L Total Bilirubin 0.3 AST 17 ALT 25 Alkaline Phosphatase 51 Total Protein 7.0 Albumin 3.3 L TSH Salicylates < 2.8 Acetaminophen < 2 Ethyl Alcohol < 3.0 08/12/23 16:14 WBC RBC Hgb Hct MCV MCH MCHC RDW Plt Count MPV Immature Gran % Neutrophils % Lymphocytes % Monocytes % Eosinophils % Basophils % Nucleated RBC % Absolute Neutrophils Absolute Lymphocytes Absolute Monocytes Absolute Eosinophils Absolute Basophils Sodium Potassium Chloride Carbon Dioxide Anion Gap BUN Creatinine Est GFR (CKD-EPI 2020) Glucose Calcium Magnesium Total Bilirubin AST ALT Alkaline Phosphatase Total Protein Albumin TSH 0.91 Salicylates Acetaminophen Ethyl Alcohol Last Vital Signs Temp 36.5 C 08/12/23 16:10 Pulse 101 H 08/12/23 16:10 Resp 20 08/12/23 16:14 BP 120/75 08/12/23 16:10 Pulse Ox 95 08/12/23 16:10 Time Spent Time spent with Patient: 40-54 minutes Time was spent: preparing to see the patient(eg.review tests), obtaining and/or reviewing separately otained hiistory, ordering medications,tests, procedures, referring, communicating with other health daycare teacher, indepentently interpreting results, counseling the patient and care coordination
[2023-08-12 17:53] LABS: BE (Venous) 0 mmol/L (-2-3); HCO3 (Venous) 26 mmol/L (23-28); O2 Sat (Venous) 80 %; TCO2 (Venous) 23 mmol/L (24-29); pCO2 (Venous) 48 mmHg (41-51); pH (Venous) 7.33 (7.31-7.41); pO2 (Venous) 49 mmHg
[2023-08-12 18:06] LABS: Source Nasal/Nares
[2023-08-12 18:42] LABS: COVID-19 PCR Negative (Negative)
[2023-08-12] MEDS: Normal Saline 1,000 ML 125 ML IV (19:09)
[2023-08-12] MEDS: MAGNESIUM SULFATE 4 GM/100 ML BAG IVPB (19:09)
[2023-08-12 19:48] LABS: Lactate 1.4 mmol/L (0.6-1.4)
[2023-08-12] MEDS: Lactated Ringers 1,000 ML 150 ML IV (19:50)
[2023-08-12] MEDS: Normal Saline Flush 10 ML SYR IVP ×2 (20:22→22:52)
[2023-08-12] MEDS: Pantoprazole 40 MG VIAL IVP (20:22)
[2023-08-12] MEDS: Lactated Ringers 250 ML 1000 ML IV (20:30)
[2023-08-12 20:47] LABS: *AMPHETAMINES SCREEN URINE Negative (Negative); *BARBITURATES SCREEN URINE Negative (Negative); *BENZODIAZEPINES SCREEN URINE Negative (Negative); Cannabinoids THC Negative (Negative); Cocaine Screen,Urine Negative (Negative); METHADONE URINE SCREEN Negative (Negative); OPIATES URINE SCREEN Negative (Negative)
[2023-08-12 20:49] LABS: Tricyclic Antidepressants Negative (Negative)
[2023-08-12 21:48] LABS: BE (Venous) 0 mmol/L (-2-3); HCO3 (Venous) 26 mmol/L (23-28); O2 Sat (Venous) 97 %; TCO2 (Venous) 23 mmol/L (24-29); pCO2 (Venous) 43 mmHg (41-51); pH (Venous) 7.38 (7.31-7.41); pO2 (Venous) 118 mmHg
[2023-08-12 21:50] LABS: Lactate 1.1 mmol/L (0.6-1.4)
--- NOTE | 2023-08-12 22:10 | NUR.NOTE ---
[facility] [place] to report family unable to assist with med rec at this time, will call tomorrow to attempt pt contact againNursing Note:
[2023-08-13] VITALS (87 sets, daily range): BP systolic 75–115; BP diastolic 45–76; PULSE 70–94; RESP 12–25; TEMP 36.2–37.1; O2SAT 90–98
[2023-08-13] MEDS: Lactated Ringers 1,000 ML 150 ML IV ×2 (00:18→03:31)
[2023-08-13] MEDS: Lactated Ringers 500 ML 1000 ML IV (00:50)
--- NOTE | 2023-08-13 01:20 | NUR.NOTE ---
Nursing Note: Poison Control called to check on patient(Lori). Reported Vital Signs as documented, not uncommon for patient to test negative for Benzodiazepines on toxicology screening. Primary symptoms are sleepiness and hypotension as noted. Continue to monitor lactate levels and if concern for fluid overload consider treatment of hypotension with low-dose norepinephrine.
[2023-08-13] MEDS: Normal Saline Flush 10 ML SYR IVP ×5 (01:42→23:46)
[2023-08-13 02:04] LABS: BE (Venous) 1 mmol/L (-2-3); HCO3 (Venous) 26 mmol/L (23-28); O2 Sat (Venous) 97 %; TCO2 (Venous) 24 mmol/L (24-29); pCO2 (Venous) 42 mmHg (41-51); pO2 (Venous) 109 mmHg
[2023-08-13 02:06] LABS: Lactate 1.2 mmol/L (0.6-1.4)
[2023-08-13 06:30] LABS: BE (Venous) 0 mmol/L (-2-3); HCO3 (Venous) 25 mmol/L (23-28); O2 Sat (Venous) 96 %; TCO2 (Venous) 23 mmol/L (24-29); pCO2 (Venous) 37 mmHg (41-51); pH (Venous) 7.43 (7.31-7.41); pO2 (Venous) 89 mmHg
[2023-08-13 06:32] LABS: Abs Immature Grans 0.01 10^3/uL (0.0-0.06); Absolute Basophil Count 0.03 10^3/uL (0.0-0.2); Absolute Eosinophil Count 0.21 10^3/uL (0.0-0.7); Absolute Lymphocyte Count 2.26 10^3/uL (1.2-3.4); Absolute Monocyte Count 0.26 10^3/uL (0.1-0.8); Absolute Neutrophil Count 1.83 10^3/uL (1.2-6.7); Basophils % 0.7; Eosinophils % 4.6; HCT 33.8 % (36.0-46.0); HGB 11.3 g/dL (11.2-15.7); Immature Grans % 0.2; Lymphocytes % 49.1; MCH 30.4 pg (27.0-33.0); MCHC 33.4 % (32.0-36.0); MCV 91 fL (80-95); MPV 9.8 fL (8.0-11.0); Monocytes % 5.7; Neutrophils % 39.7; Platelet Count 155 10^3/uL (130-400); RBC 3.72 10^6/uL (3.93-5.22); RDW 13.6 % (11.7-14.6); RDW-SD 45.1 fL
[2023-08-13 06:43] LABS: Anion Gap -0.6 mmol/L (3-11); BUN 10 mg/dL (7-18); CO2 25.6 mmol/L (21.0-32.0); CREATININE 0.4 mg/dL (0.55-1.02); Calcium 7.9 mg/dL (8.5-10.1); Chloride 110 mmol/L (98-107); Estimated GFR 122.01 (mL/min/1.73m2); Glucose 130 mg/dL (74-106); Magnesium 1.6 mg/dL (1.8-2.4); Potassium 3.5 mmol/L (3.5-5.1); Sodium 135 mmol/L (136-145)
[2023-08-13] MEDS: MAGNESIUM SULFATE 2 GM/50 ML BAG IVPB (08:04)
--- NOTE | 2023-08-13 08:24 | W.PM.PROGNOT ---
Date of Service Date of service: 08/13/23 Time of Service: 08:24 Assessment and Plan Assessment and plan (1) Suicide attempt by benzodiazepine overdose: Status: Acute Assessment and plan: Mental status is better. BPs still low. Not requiring respiratory support/ventilating well on her own. Keep in the ICU. Continue monitoring end-tidal CO2. Trial a clear liquid diet. Mental health consult once medically cleared. (2) Toxic metabolic encephalopathy: Status: Acute Assessment and plan: Due to benzodiazepine overdose. Improved. Continue to monitor mental status. (3) Hypomagnesemia: Status: Acute Assessment and plan: Replete, recheck in am (4) Hypotension: Status: Acute Assessment and plan: In setting of benzodiazepine overdose, this is expected. Continue IVF while monitoring respiratory status. Does have a h/o cardiomyopathy s/p recent AICD. NO evidence of an infectious process or that this is a cardiogenic shock. (5) Type 2 diabetes mellitus: Status: Chronic Assessment and plan: Hold metformin and monitor for lactic acidosis. Hold dulaglutide. Cover with SSI. Qualifiers: Diabetes mellitus shelter insulin use: without shelter use Diabetes mellitus complication status: without complication Qualified Code(s): E11.9 - Type 2 diabetes mellitus without complications (6) DVT prophylaxis: Status: Acute Assessment and plan: SCDs. Abstain from chemical DVT ppx for now due to h/o heme Positive stools (repeat ordered). (7) Discharge planning issues: Assessment and plan: Full code Keep in the ICU. Total Critical Care Time [address] Lopez. Subjective Subjective Interval history since last seen: Still somnolent, but more alert this morning than she was yesterday. She states that the incisions we saw on her abdomen yesterday are from an AICD which was placed at [facility] [place] on 07/10/23. She denies dizziness, CP, SOB, n/v. She still feels sleepy and states she is not hungry. While wearing an NC, she is not actually getting supplemental O2 - it is being worn for the end-tidal CO2 monitoring. She has not required O2 supplementation/CPAP/BiPAP overnight. Exam Narrative Exam Narrative: General: Obese female who is lethargic, but much more arousable today just to voice, able to answer questions in full sentences, does not fall asleep during conversation, A&Ox3. Appears comfortable HEENT: EOMI, MMM Cardiovascular: RRR, no m/r/g Lungs: CTAB Gastrointestinal: soft, nontender, nondistended Genitourinary: has a diamond Extremities: no edema BLEs, 2+ pedal pulses B, no c/c Objective Last Vital Signs Temp 36.3 C L 08/13/23 06:08 Pulse 76 08/13/23 06:00 Resp 20 08/13/23 06:01 BP 91/66 L 08/13/23 06:00 Pulse Ox 95 08/13/23 06:01 Laboratory Results - last 24 hr 08/12/23 08/12/23 08/12/23 16:14 16:14 16:14 WBC 8.62 RBC 4.97 Hgb 14.9 Hct 43.7 MCV 88 MCH 30.0 MCHC 34.1 RDW 13.4 Plt Count 231 MPV 10.0 Immature Gran % 0.3 Neutrophils % 49.9 Lymphocytes % 39.8 Monocytes % 6.0 Eosinophils % 3.4 Basophils % 0.6 Nucleated RBC % 0.0 Absolute Neutrophils 4.30 Absolute Lymphocytes 3.43 H Absolute Monocytes 0.52 Absolute Eosinophils 0.29 Absolute Basophils 0.05 VBG pH VBG pCO2 VBG pO2 VBG HCO3 VBG Total CO2 VBG O2 Saturation VBG Base Excess VBG Lactate Sodium 137 Potassium 3.8 Chloride 102 Carbon Dioxide 25.4 Anion Gap 9.6 BUN 14 Creatinine 0.6 Est GFR (CKD-EPI 2020) 110.65 Glucose 145 H Calcium 9.3 Magnesium 1.5 L Total Bilirubin 0.3 AST 17 ALT 25 Alkaline Phosphatase 51 Total Protein 7.0 Albumin 3.3 L TSH Salicylates < 2.8 Urine Opiates Screen Urine Methadone Screen Acetaminophen < 2 Ur Barbiturates Screen Ur Tricyclics Screen Ur Amphetamines Screen U Benzodiazepines Scrn Urine Cocaine Screen Ur THC Screen Ethyl Alcohol < 3.0 COVID-19 Source SARS-CoV-2 (PCR) 08/12/23 08/12/23 08/12/23 16:14 17:50 17:55 WBC RBC Hgb Hct MCV MCH MCHC RDW Plt Count MPV Immature Gran % Neutrophils % Lymphocytes % Monocytes % Eosinophils % Basophils % Nucleated RBC % Absolute Neutrophils Absolute Lymphocytes Absolute Monocytes Absolute Eosinophils Absolute Basophils VBG pH 7.33 VBG pCO2 48 VBG pO2 49 VBG HCO3 26 VBG Total CO2 23 L VBG O2 Saturation 80 VBG Base Excess 0 VBG Lactate Sodium Potassium Chloride Carbon Dioxide Anion Gap BUN Creatinine Est GFR (CKD-EPI 2020) Glucose Calcium Magnesium Total Bilirubin AST ALT Alkaline Phosphatase Total Protein Albumin TSH 0.91 Salicylates Urine Opiates Screen Urine Methadone Screen Acetaminophen Ur Barbiturates Screen Ur Tricyclics Screen Ur Amphetamines Screen U Benzodiazepines Scrn Urine Cocaine Screen Ur THC Screen Ethyl Alcohol COVID-19 Source Nasal/Nares SARS-CoV-2 (PCR) Negative 08/12/23 08/12/23 08/12/23 19:40 20:13 21:43 WBC RBC Hgb Hct MCV MCH MCHC RDW Plt Count MPV Immature Gran % Neutrophils % Lymphocytes % Monocytes % Eosinophils % Basophils % Nucleated RBC % Absolute Neutrophils Absolute Lymphocytes Absolute Monocytes Absolute Eosinophils Absolute Basophils VBG pH VBG pCO2 VBG pO2 VBG HCO3 VBG Total CO2 VBG O2 Saturation VBG Base Excess VBG Lactate 1.4 1.1 Sodium Potassium Chloride Carbon Dioxide Anion Gap BUN Creatinine Est GFR (CKD-EPI 2020) Glucose Calcium Magnesium Total Bilirubin AST ALT Alkaline Phosphatase Total Protein Albumin TSH Salicylates Urine Opiates Screen Negative Urine Methadone Screen Negative Acetaminophen Ur Barbiturates Screen Negative Ur Tricyclics Screen Negative Ur Amphetamines Screen Negative U Benzodiazepines Scrn Negative Urine Cocaine Screen Negative Ur THC Screen Negative Ethyl Alcohol COVID-19 Source SARS-CoV-2 (PCR) 08/12/23 08/13/23 08/13/23 21:43 01:55 01:55 WBC RBC Hgb Hct MCV MCH MCHC RDW Plt Count MPV Immature Gran % Neutrophils % Lymphocytes % Monocytes % Eosinophils % Basophils % Nucleated RBC % Absolute Neutrophils Absolute Lymphocytes Absolute Monocytes Absolute Eosinophils Absolute Basophils VBG pH 7.38 7.40 VBG pCO2 43 42 VBG pO2 118 109 VBG HCO3 26 26 VBG Total CO2 23 L 24 VBG O2 Saturation 97 97 VBG Base Excess 0 1 VBG Lactate 1.2 Sodium Potassium Chloride Carbon Dioxide Anion Gap BUN Creatinine Est GFR (CKD-EPI 2020) Glucose Calcium Magnesium Total Bilirubin AST ALT Alkaline Phosphatase Total Protein Albumin TSH Salicylates Urine Opiates Screen Urine Methadone Screen Acetaminophen Ur Barbiturates Screen Ur Tricyclics Screen Ur Amphetamines Screen U Benzodiazepines Scrn Urine Cocaine Screen Ur THC Screen Ethyl Alcohol COVID-19 Source SARS-CoV-2 (PCR) 08/13/23 08/13/2308/13/23 06:15 06:15 06:15 WBC RBC Hgb Hct MCV MCH MCHC RDW Plt Count MPV Immature Gran % Neutrophils % Lymphocytes % Monocytes % Eosinophils % Basophils % Nucleated RBC % Absolute Neutrophils Absolute Lymphocytes Absolute Monocytes Absolute Eosinophils Absolute Basophils VBG pH 7.43 H VBG pCO2 37 L VBG pO2 89 VBG HCO3 25 VBG Total CO2 23 L VBG O2 Saturation 96 VBG Base Excess 0 VBG Lactate 1.0 Sodium 135 L Potassium 3.5 Chloride 110 H Carbon Dioxide 25.6 Anion Gap -0.6 L BUN 10 Creatinine 0.4 L Est GFR (CKD-EPI 2020) 122.01 Glucose 130 H Calcium 7.9 L Magnesium 1.6 L Total Bilirubin AST ALT Alkaline Phosphatase Total Protein Albumin TSH Salicylates Urine Opiates Screen Urine Methadone Screen Acetaminophen Ur Barbiturates Screen Ur Tricyclics Screen Ur Amphetamines Screen U Benzodiazepines Scrn Urine Cocaine Screen Ur THC Screen Ethyl Alcohol COVID-19 Source SARS-CoV-2 (PCR) 08/13/23 06:15 WBC 4.60 RBC 3.72 L Hgb 11.3 D Hct 33.8 L MCV 91 MCH 30.4 MCHC 33.4 RDW 13.6 Plt Count 155 MPV 9.8 Immature Gran % 0.2 Neutrophils % 39.7 Lymphocytes % 49.1 Monocytes % 5.7 Eosinophils % 4.6 Basophils % 0.7 Nucleated RBC % 0.0 Absolute Neutrophils 1.83 Absolute Lymphocytes 2.26 Absolute Monocytes 0.26 Absolute Eosinophils 0.21 Absolute Basophils 0.03 VBG pH VBG pCO2 VBG pO2 VBG HCO3 VBG Total CO2 VBG O2 Saturation VBG Base Excess VBG Lactate Sodium Potassium Chloride Carbon Dioxide Anion Gap BUN Creatinine Est GFR (CKD-EPI 2020) Glucose Calcium Magnesium Total Bilirubin AST ALT Alkaline Phosphatase Total Protein Albumin TSH Salicylates Urine Opiates Screen Urine Methadone Screen Acetaminophen Ur Barbiturates Screen Ur Tricyclics Screen Ur Amphetamines Screen U Benzodiazepines Scrn Urine Cocaine Screen Ur THC Screen Ethyl Alcohol COVID-19 Source SARS-CoV-2 (PCR) Multi-Disciplinary Checklist Lines/Tubes CENTRAL LINE: no ARTERIAL LINE: no DIAMOND: yes, Diamond Day#: 1 Note: inserted on 08/12/23 ENDOTRACHEAL TUBE: no ICU Maintenance GLUCOSE 140-180mg/dL: no, Reason/Intervention: was NPO; now has a clear liquid diet ordered NUTRITION AT GOAL: no, Reason/Intervention: Advancing diet to clears from NPO PRESSURE ULCER: no RESTRAINTS: no ANTIBIOTICS(if yes, consider Stewardship): No Social Issues FAMILY UPDATED: yes PT/OT: no, Reason/Intervention: Not clinically relevant GOALS/DISPOSITION/VIDEO GAME ENGINEER: yes CODE STATUS: Full Prophylaxis DVT PROPHYLAXIS: yes GI PROPHYLAXIS: yes, Indication: d/c'ing once she is tolerating a diet Time Spent with Patient Time Spent with Patient: 35-49 minutes Time was spent: preparing to see the patient(eg.review tests), obtaining and/or reviewing separately otained hiistory, ordering medications,tests, procedures, referring, communicating with other health customer care representative, indepentently interpreting results, counseling the patient and care coordination
--- NOTE | 2023-08-13 08:37 | PDOC.CMIN ---
Date of service: 08/13/23 Time of Service: 08:37 Care Management Initial Assmt Initial Assessment REASON FOR HOSPITALIZATION:: Clonazepam overdose; suicide attempt PREVIOUS FUNCTIONAL STATUS/SOCIAL/FAMILY SUPPORTS:: Jammie lives in [facility] with her , Yoni, and their 13 year old child. Jammie has two adult children who live outside the home. Jammie is independent at baseline in the community. CURRENT FUNCTIONAL STATUS:: CM first met Jammie when a code cristiano was called, as she was threatening to leave. Jammie minimally engaged with CM, but did state that her is her main support, and she advocated for him being able to visit. CM also spoke to Yoni on the phone, and he reported that he is interested in her well being, and he felt that he could be a positive support for her. CM discussed this with her RN and the RN Plane Captain, while Jammie spoke to Yoni on the phone. During the huddle, Jammie threw the phone on the ground. CM responded and Jammie stated that he was told he could not visit. CM advised that he can, in fact visit. At that time, Jammie agreed to remain at [facility]. A second code quinonez was called after Jammie's arrived, and Jammie reportedly demanded that he take her home. Yoni refused, and left. CM had called [facility] in order to screen Jammie, as she was threatening to leave [place]. CM and Zoila [facility], responded to the code quinonez, and were unable to redirect Jammie. Security was present and supported her RN to have Jammie lay down on the bed. Jammie was kicking and biting at staff, at which point she was put into restraints, for her own safety, and the safety of staff. Per report, the restraints were removed once she was able to keep herself safe. Zoila [facility], began the process to hold Jammie involuntarily. Dr. Joe agrees to this plan and filled out the EE forms; ADY has submitted the paperwork to [facility]. CM will continue to follow. ADVANCE DIRECTIVES:: Not on file. Has patient been provided with info about the portal/API?: Yes Did the patient sign up for the portal?: Yes CODE STATUS:: Full Code INSURANCE COVERAGE / FINANCIAL ISSUES:: MCR. HAN. CURRENT HOME/COMMUNITY SERVICES/EQUIPMENT:: [facility] PRIMARY CARE PHYSICIAN:: Edie Ellis POTENTIAL DISCHARGE NEEDS:: [facility] crisis screening, once Jammie is medically cleared. PATIENT/FAMILY EDUCATION NEEDS:: Expectations for hospitalization; review discharge instructions and limitations, discussion of self care needs including ask me three. ANTICIPATED BARRIERS TO DISCHARGE:: Jammie is being held involuntarily at this time. TRANSPORTATION:: To be determined by disposition. PLAN:: Jammie is being closely monitored at ICU level of care. She is not yet medically cleared, but [facility] was asked to meet with her, as she was attempting to leave [facility]. Jammie did not engage with Zoila, and became dysregulated. Zoila and Dr. Joe filled out EE paperwork, and submitted it for review for an involuntary hold. Her transportation will be determined by her disposition. She will follow up with her PCP and discharge plan of care. CM will continue to follow. [facility] All Active Problems (Updated 08/12/23 @ 19:30 by Bonnie Joe MD) Hypomagnesemia (Acute) Toxic metabolic encephalopathy (Acute) Suicide attempt by benzodiazepine overdose (Acute) Intentional benzodiazepine overdose (Acute) Patellofemoral arthritis of left knee (Acute) Hypotension (Acute) Pulmonary hypertension (Chronic) Acute respiratory failure with hypoxia (Acute) Pulmonary edema (Acute) Acute respiratory distress (Acute) COVID-19 (Acute) Bilateral carpal tunnel syndrome (Acute) S/P R ECTR: 05/13/2022 Amplified musculoskeletal pain (Acute) Tendonitis of long head of biceps brachii of right shoulder (Acute) Bursitis of right shoulder (Acute) Traumatic tear of right rotator cuff (Acute) Calcific tendinitis of right shoulder (Acute) 40mg depo-medrol injection: 02/11/2022 Lateral epicondylitis of right elbow (Acute) 40mg depo-medrol injection: 02/11/2022 Hematest positive stools (Acute) Cardiomyopathy (Chronic) last echocardiogram 01/27/2019, LVEF 50-55%, no regional wall motion abnormalities, mild LVH, mild MR; normal RV size and function Bipolar disorder (Chronic) 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 (Acute 01/25/14) Atypical chest pain (Acute) Type 2 diabetes mellitus (Chronic) DVT prophylaxis (Acute) Palpitations (Acute) Spell of altered consciousness (Acute) Elevated brain natriuretic peptide (BNP) level (Acute) Chest pain (Acute) Screening for colon cancer (Acute) Tobacco use (Acute) Fecal occult blood test positive (Acute) Medical History (Updated 08/12/23 @ 19:30 by Bonnie Joe MD) Acute kidney injury Anxiety 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 (01/25/14) Bursitis of left shoulder (~03/2019) CAD (coronary artery disease) mild non-obstructive disease per cardiac cath report from [facility] 09/07/2013, more recent repeat cath unchanged but with pulmonary HTN Carpal tunnel syndrome, left Cervical radiculopathy bilateral Change in mental status Chronic migraine (03/07/15) Chronic pain syndrome Dehydration Depression Diabetes Discharge planning issues Dizziness, nonspecific Dyspnea Elbow fracture, right Fatigue Hyperlipidemia Hyperthyroidism Impingement syndrome of left shoulder (~03/2019) Lactose intolerance Left rotator cuff tear (~03/2019) Medication overuse headache (03/07/15) Migraine headache with aura (03/07/15) Migraine headache without aura (03/07/15) Morbid obesity Myalgia Orthostasis Polycystic ovaries Shortness of breath Splenomegaly Suicidal ideation Tachycardia Tendinitis of long head of biceps brachii of left shoulder (~03/2019) Unresponsive episode Urinary incontinence Surgical History History of arthroscopy of left shoulder History of section x2 History of endometrial ablation Hx of cardiac catheterization 08/2021-no stent placed Previous back surgery S/P hysterectomy Social History Smoking/Tobacco Use Status: Former Tobacco Use Quit status: quit date established Smoking risk assessment performed?: Yes Alcohol Intake: never Drug use: Never Substance use type: does not use Number of Children: 3 Current gender identity: female What is your relationship status?: Panel score (0-1 are the most socially isolated patients): 0 What type of physical activity do you participate in: none Do you feel safe at home: Yes Do you feel safe in your relationship?: Yes Female Reproductive History Menstrual control method: permanent sterilization
--- NOTE | 2023-08-13 10:43 | NUR.NOTE ---
Pt persevering about calling her . No interim care plan in place to allow this. Pt escalating behavior to get to a phone- stating that she will be violent if she can't use a phone, jodee rutherford called, pt meeting with lead case manager at this time.
--- NOTE | 2023-08-13 10:58 | TELEP.MEDR_ITS ---
Date of service: 08/13/23 [facility] 10[facility] All[facility] Allergies: Penicillins Allergy (Severe, Verified 04/28/23 13:54) throat closes Sulfa (Sulfonamide Antibiotics) Allergy (Mild, Verified 04/28/23 13:54) Hives lactose Adverse Reaction (Verified 04/28/23 13:54) Diarrhea Interview Person Interviewed: * Patient Quality Quality of Interview/Accuracy of Medication List: Fair Sources Sources used to compile medication list: [place] Medication List and Keelr Changes made to Home Medication List: ADDITIONS: * Farxiga 5mg PO daily * Vascepa 2gm PO BID DELETIONS: * Fluconazole * Ibuprofen CHANGES: * Duloxetine 30mg PO daily * Estradiol PO BID --> 1mg qAM and 1.5mg qPM * Hydromorphone 4mg PO BID * Magnesium oxide 400mg PO daily * Naproxen 500mg PO BID * Entresto (97-103mg) - 1 tab PO BID Additional Notes Additional Notes: * none Recommended Changes Recommended Changes(reason for recommendation): * none Attestation: The home medication list is now updated to the best of my knowledge and is ready to be reconciled by the provider. Please contact the [facility] Medication R econciliation Pharmacist at for any questions.
--- NOTE | 2023-08-13 10:58 | TELEP.MEDREC ---
Date of service: 08/13/23 Time of Service: 10:58 Telepharmacy Home Med Rec Allergies Allergies: Penicillins Allergy (Severe, Verified 04/28/23 13:54) throat closes Sulfa (Sulfonamide Antibiotics) Allergy (Mild, Verified 04/28/23 13:54) Hives lactose Adverse Reaction (Verified 04/28/23 13:54) Diarrhea Interview Person Interviewed: Patient Quality Quality of Interview/Accuracy of Medication List: Fair Sources Sources used to compile medication list: [employer]ocean Medication List and [employer] Changes made to Home Medication List: ADDITIONS: Farxiga 5mg PO daily Vascepa 2gm PO BID DELETIONS: Fluconazole Ibuprofen CHANGES: Duloxetine 30mg PO daily Estradiol PO BID --> 1mg qAM and 1.5mg qPM Hydromorphone 4mg PO BID Magnesium oxide 400mg PO daily Naproxen 500mg PO BID Entresto (97-103mg) - 1 tab PO BID Additional Notes Additional Notes: none Recommended Changes Recommended Changes(reason for recommendation): none Attestation: The home medication list is now updated to the best of my knowledge and is ready to be reconciled by the provider. Please contact the [facility] Medication Reconciliation Pharmacist at for any questions.
--- NOTE | 2023-08-13 11:33 | CMSP_ITS ---
Date of service: 08/13/23 Time of Service: 11:33 Care Management Safety Plan Status Status: Interim Reason for Wait Reason for Wait: Medical Clearance Safety Plan Safety Plan: Chief Complaint: Jammie presented to [facility] after taking 30-45 1mg tablets of her own clonazepam. Jammie reports that she was having family issues with her children prior to her taking the presumed intentional overdose (her s/o, Yoni reported to the provider that this was intentional). Jammie is currently admitted to the ICU, and is being closely monitored, following guidance from poison co ntrol. After two code corey this morning, and Jammie not willing to interact with JONES Cummings; an EE was completed to hold Jammie involuntarily for her safety. At this time, Jammie is not medically cleared, and continues to be monitored closely at ICU level of care. INVOLUNTARY FOR INPATIENT PSYCHIATRIC STABILIZATION. Safety plan has been established to meet the needs of the patient, and consideration of the care team, to adhere to patient goals, identify restrictions based on behavioral status, address nutrition, and determine allowed personal belongings, tools for hygiene and personal care. Determine level of activity including ambulation, level of supervision, visitors, and determine privileges based on behaviors and level of engagement by pt. SAFETY PLAN: 1. Will remain on SI/HI precautions. In Paper Clothes or hospital gown. 2. Will remain in room under direct supervision of one-on-one staff at all times provided by [employer]; YOSELIN, ENGINEERING INSPECTION ASSISTANT grants administrator. 3. May have paper cups, plates, finger foods as well as a cardboard spoon 4. Follow [facility] Management of the Admitted Behavioral Health Patient policy. 5. Comfort bath system only. 6. No personal belongings 7. Visitors: limited to Yoni dillard, at RN discretion. 8. Activities: soft cart items, at RN discretion. 9. ?Bathroom privileges with supervision 10. Phone: Yoni ([phone]) and legal. 11. Due to INVOLUNTARY status, patient is being held at [facility] by the Department of Mental Health (DM) until 2nd certification by [facility] Psychiatrist can be performed (within 24 hours). Staff will provide de-escalation support (CPI) as needed. If patient wishes to leave [facility], staff will contact [facility] Crisis Screener ([phone]) and On-Call Marine Oiler ([phone]) as soon as possible. In the event of elopement, notify [facility] Police ([phone]). Patient is currently involuntarily at [facility]. [facility] Frontline Rag Willow Operator will continue seeking placement. Please contact the Inner Tube Inserter Marine Oiler ([phone]) for any needed changes to Safety Plan. Safety plan has been provided to interdepartmental care team. Patient will be transported by deputy sheriff chief at time of discharge.
[2023-08-13] MEDS: OLANZapine 10 MG VIAL 5 MG IM (11:50)
[2023-08-13] MEDS: Water,Injection,Sterile 10 ML VIAL (11:51)
[2023-08-13] MEDS: Pantoprazole 40 MG VIAL IVP (19:47)
--- NOTE | 2023-08-13 20:17 | NUR.NOTE ---
Nursing Note: [facility] and requesting Progress Note to be faxed to [phone]. Progress note time stamped 08/13/23 0837 and signed by Bonnie Joe MD was faxed as requested.
[2023-08-14] VITALS (64 sets, daily range): BP systolic 88–129; BP diastolic 46–86; PULSE 70–106; RESP 11–23; TEMP 36.3–37.2; O2SAT 93–99
--- NOTE | 2023-08-14 05:59 | NUR.NOTE ---
Addendum entered by Kimberley Mcbride RN 08/14/23 06:10: Correction[facility] Original Note: Nursing Note: Update to Abdon Patel @ [facility], patient was cooperative overnight with care, required significant encouragement to participate in patient care activities but was compliant.
--- NOTE | 2023-08-14 06:46 | NUR.NOTE ---
Nursing Note:Patient voided x 1 at midnight. PVR was 48 at the time. Offered BSC h8wiral with vital signs. Average urine output was 50ml/hr. [employer] changed over at this time.
[2023-08-14 07:10] LABS: Abs Immature Grans 0.01 10^3/uL (0.0-0.06); Absolute Basophil Count 0.02 10^3/uL (0.0-0.2); Absolute Eosinophil Count 0.19 10^3/uL (0.0-0.7); Absolute Lymphocyte Count 1.91 10^3/uL (1.2-3.4); Absolute Monocyte Count 0.25 10^3/uL (0.1-0.8); Absolute Neutrophil Count 2.15 10^3/uL (1.2-6.7); Basophils % 0.4; Eosinophils % 4.2; HCT 39.1 % (36.0-46.0); Immature Grans % 0.2; Lymphocytes % 42.2; MCH 30.2 pg (27.0-33.0); MCHC 33.2 % (32.0-36.0); MCV 91 fL (80-95); MPV 10.5 fL (8.0-11.0); Monocytes % 5.5; Neutrophils % 47.5; Platelet Count 160 10^3/uL (130-400); RDW 13.6 % (11.7-14.6); RDW-SD 45.4 fL; WBC 4.53 10^3/uL (4.4-10.8)
[2023-08-14 07:23] LABS: Anion Gap 8.9 mmol/L (3-11); BUN 10 mg/dL (7-18); CO2 27.1 mmol/L (21.0-32.0); CREATININE 0.5 mg/dL (0.55-1.02); Calcium 8.6 mg/dL (8.5-10.1); Chloride 106 mmol/L (98-107); Estimated GFR 115.62 (mL/min/1.73m2); Glucose 114 mg/dL (74-106); Magnesium 1.5 mg/dL (1.8-2.4); Potassium 3.8 mmol/L (3.5-5.1); Sodium 142 mmol/L (136-145)
--- NOTE | 2023-08-14 08:22 | PGE_ITS ---
Date of Service Date of service: 08/14/23 Time of Service: : Assessment and Plan Assessment and plan (1) Suicide attempt by benzodiazepine overdose: Status: Acute Assessment and plan: Mental status is improving. BPs dropped off of IVF, so I am doing a small bolus of IVF and cautious MIVF until the BPs normalize and PO intake improves. Not requiring respiratory support. Keep in the ICU. Advance diet and encourage ambulation. 'ed for an involuntary psychiatric admission. (2) Toxic metabolic encephalopathy: Status: Acute Assessment and plan: Due to benzodiazepine overdose. Improved. Continue to monitor mental status. (3) Hypomagnesemia: Status: Acute Assessment and plan: Replete, recheck in am (4) Hypotension: Status: Acute Assessment and plan: In setting of benzodiazepine overdose, this is expected. Resume LR @ 75 cc/hr after a 250 cc bolus. Keep in the ICU. We are holding entresto, BB. Does have a h/o cardiomyopathy s/p recent AICD. No evidence of an infectious process or that this is a cardiogenic shock. (5) Type 2 diabetes mellitus: Status: Chronic Assessment and plan: Hold metformin and monitor for lactic acidosis. Hold dulaglutide. Cover with SSI. Qualifiers: Diabetes mellitus sweatband separator insulin use: without sweatband separator use Diabetes mellitus complication status: without complication Qualified Code(s): E11.9 - Type 2 diabetes mellitus without complications (6) DVT prophylaxis: Status: Acute Assessment and plan: SCDs. Abstain from chemical DVT ppx for now due to h/o heme Positive stools (repeat ordered). (7) Discharge planning issues: Assessment and plan: Full code Keep in the ICU. Total Critical Care Time 30 minutes 'ed for an involuntary psychiatric admission. Subjective Subjective Interval history since last seen: DANIEL after the 2 code corey yesterday. Apparently, the leaving after a 5 minute visit precipitated one of the code corey. She did have a 2nd certification yesterday evening and remains EE'ed. Denies dizziness, CP, SOB, n/v. Not hungry. Not having good PO intake. Not in pain. Has been cooperative. BPs on the lower side w/o IVF. Not retaining urine by bladder scans. Exam Narrative Exam Narrative: General: Obese female who is more awake, but still somnolent, A&Ox3, appears comfortable in bed HEENT: EOMI, MMM Cardiovascular: RRR, no m/r/g Lungs: CTAB Gastrointestinal: soft, nontender, nondistended Genitourinary: diamond has been removed Extremities: no edema BLEs, 2+ pedal pulses B, no c/c Objective Last Vital Signs Temp 36.4 C L 08/14/23 06:01 Pulse 83 08/14/23 06:01 Resp 14 08/14/23 06:01 BP 100/69 08/14/23 06:01 Pulse Ox 96 08/14/23 06:01 Laboratory Results - last 24 hr 08/14/23 08/14/23 05:30 05:30 WBC 4.53 RBC 4.30 Hgb 13.0 Hct 39.1 MCV 91 MCH 30.2 MCHC 33.2 RDW 13.6 Plt Count 160 MPV 10.5 Immature Gran % 0.2 Neutrophils % 47.5 Lymphocytes % 42.2 Monocytes % 5.5 Eosinophils % 4.2 Basophils % 0.4 Nucleated RBC % 0.0 Absolute Neutrophils 2.15 Absolute Lymphocytes 1.91 Absolute Monocytes 0.25 Absolute Eosinophils 0.19 Absolute Basophils 0.02 Sodium 142 Potassium 3.8 Chloride 106 Carbon Dioxide 27.1 Anion Gap 8.9 BUN 10 Creatinine 0.5 L Est GFR (CKD-EPI 2020) 115.62 Glucose 114 H Calcium 8.6 Magnesium 1.5 L Time Spent with Patient Time Spent with Patient: 25-34 minutes Time was spent: preparing to see the patient(eg.review tests), obtaining and/or reviewing separately otained hiistory, ordering medications,tests, procedures, referring, communicating with other health memory care program resident, indepentently interpreting results, counseling the patient and care coordination
--- NOTE | 2023-08-14 08:22 | NUR.NOTE ---
Patient is set up with her breakfast tray of fruit, eggs, toast, a fruit drink. Patient is feeding herself.Nursing Note:
[2023-08-14] MEDS: Lactated Ringers 250 ML IV (08:51)
[2023-08-14] MEDS: buPROPion-CR 150 MG TABCR PO ×2 (09:23→19:59)
[2023-08-14] MEDS: Cholecalciferol (Vitamin D3) 1,000 UNIT TAB 2000 UNITS PO (09:23)
[2023-08-14] MEDS: Aspirin E.C. 81 MG TABEC PO (09:23)
[2023-08-14] MEDS: Magnesium Chloride 64 MG TABCR PO ×2 (09:24→19:59)
[2023-08-14] MEDS: DULoxetine 30 MG CAP PO (09:24)
[2023-08-14] MEDS: Omeprazole 20 MG CAPCR PO (09:24)
[2023-08-14] MEDS: Cyanocobalamin 500 MCG TAB 1000 MCG PO (09:24)
[2023-08-14] MEDS: Pregabalin 100 MG CAP PO ×3 (09:25→19:59)
[2023-08-14] MEDS: Docusate Sodium 100 MG CAP PO (09:35)
[2023-08-14] MEDS: Lactated Ringers 1,000 ML 75 ML IV ×2 (09:42→19:24)
[2023-08-14] MEDS: MAGNESIUM SULFATE 4 GM/100 ML BAG IVPB (09:43)
--- NOTE | 2023-08-14 10:01 | CMSP_ITS ---
Date of service: 08/14/23 Time of Service: 10:01 Care Management Safety Plan Status Status: Involuntary Reason for Wait Reason for Wait: Medical Clearance Safety Plan Safety Plan: Chief Complaint: Jammie presented to [facility] after taking 30-45 1mg tablets of her own clonazepam. Jammie reports that she was having family issues with her children prior to her taking the presumed intentional overdose (her s/o, Yoni reported to the provider that this was intentional). Jammie is currently admitted to the ICU, and is being closely monitored, following guidance from poison control. After two code corey, and Jammie not willing to interact with JONES Cummings; an EE was completed to hold Jammie involuntarily for her safety. A second certification was completed on 08/13/23, in which the involuntary hold was certified. ADY signed the AIT, at the request of [facility], this morning. At this time, Jammie is not medically cleared, and continues to be monitored closely at ICU level of care. INVOLUNTARY?FOR INPATIENT PSYCHIATRIC STABILIZATION. Safety plan?has been established to meet the needs of the patient, and consideration of the care team, to adhere to patient goals, identify restrictions based on behavioral status, address nutrition, and determine allowed personal belongings, tools for hygiene and personal care. Determine level of activity including ambulation, level of supervision, visitors, and determine privileges based on behaviors and level of engagement by pt. SAFETY PLAN: 1. Will remain on SI/HI precautions. In Paper Clothes or hospital gown. 2. Will remain in room under direct supervision of one-on-one staff at all times provided by [employer]; YOSELIN, RESIDENTIAL MONITOR drapery inspector. 3. May have paper cups, plates, finger foods as well as a cardboard spoon 4. Follow [facility] Management of the Admitted Behavioral Health Patient policy. 5. Comfort bath system only. 6. No personal belongings 7. Visitors: limited to Yoni dillard, at RN discretion. 8. Activities: soft cart items, at RN discretion. 9. ?Bathroom privileges with supervision 10. Phone: Yoni ([phone]) and legal. 11. Due to INVOLUNTARY status, patient is being held at [facility] by the Department of Mental Health ([facility]) until 2nd certification by [facility] Psychiatrist can be performed (within 24 hours). Staff will provide de-escalation support (CPI) as needed. If patient wishes to leave [facility], staff will contact [facility] Crisis Screener ([phone]) and On-Call Manufacturing Industrial Engineer ([phone]) as soon as possible. In the event of elopement, notify [facility] Police ([phone]). Patient is currently involuntarily at [facility]. [facility] Frontline Location Manager will continue seeking placement. Please contact the Synchro Assembler Manufacturing Industrial Engineer ([phone]) for any needed changes to Safety Plan. Safety plan has been provided to interdepartmental care team. Patient will be transported by [employer] at time of discharge.
--- NOTE | 2023-08-14 10:05 | CMPROGNOTE_ITS ---
Date of service: 08/14/23 Time of Service: 10:05 Care Management Progress Note Progress Note Text Progress Note Text: S/O: Jammie was lying in bed when ADY met with her. She stated that she is doing ok today, and feels much better than yesterday. She met with Andriy, JONES, telehealth, and advocated for going to the [facility] care bed, as she has had success there in the past. She is currently involuntary, and [facility] is seeking inpatient level of care, but Andriy agreed to consider it with his team at [facility]. Andriy later called and spoke to Jammie, letting her know that she would not be eligible to go to the care bed, and as she is involuntary, she will be placed at the first facility that has a bed available. [facility] called and inquired about Jammie, asking if she would want to go to their facility. As she is not yet medically cleared, they are not willing to extend a bed offer, and have asked for updated clinical notes to be sent tomorrow. [facility] has tentatively accepted her for tomorrow, when she is medically cleared. ADY communicated this information with [facility] staff. CM will continue to follow. A: Jammie is a 48 year old female admitted to [facility] on 08/12/23 for an intentional clonazepam overdose. P: Jammie is being held involuntarily by [facility], after an EE was completed by [facility] and the [facility] MD. She is not yet medically cleared. Once she is medically cleared, [facility] will resume their daily screening, and will support her transfer to another facility for inpatient psychiatric stabilization. She will travel by secure transport, coordinated by [facility]. She will follow up with her PCP and discharge plan of care. CM will continue to follow.
--- NOTE | 2023-08-14 10:05 | PDOC.CMPRO ---
Date of service: 08/14/23 Time of Service: 10:05 Care Management Progress Note Progress Note Text Progress Note Text: S/O: Jammie was lying in bed when ADY met with her. She stated that she is doing ok today, and feels much better than yesterday. She met with Andriy, JONES, telehealth, and advocated for going to the [facility] care bed, as she has had success there in the past. She is currently involuntary, and [facility] is seeking inpatient level of care, but Andriy agreed to consider it with his team at [facility]. Andriy later called and spoke to Jammie, letting her know that she would not be eligible to go to the care bed, and as she is involuntary, she will be placed at the first facility that has a bed available. [facility] called and inquired about Jammie, asking if she would want to go to their facility. As she is not yet medically cleared, they are not willing to extend a bed offer, and have asked for updated clinical notes to be sent tomorrow. [facility] has tentatively accepted her for tomorrow, when she is medically cleared. ADY communicated this information with [facility] staff. CM will continue to follow. A: Jammie is a 48 year old female admitted to [facility] on 08/12/23 for an intentional clonazepam overdose. P: Jammie is being held involuntarily by [facility], after an EE was completed by [facility] and the [facility] MD. She is not yet medically cleared. Once she is medically cleared, [facility] will resume their daily screening, and will support her transfer to another facility for inpatient psychiatric stabilization. She will travel by secure transport, coordinated by [facility]. She will follow up with her PCP and discharge plan of care. CM will continue to follow.
--- NOTE | 2023-08-14 11:34 | NUR.NOTE ---
RN gives SUBACUTE NURSE from [facility] an update on patient's condition.Nursing Note:
--- NOTE | 2023-08-14 11:37 | NUR.NOTE ---
Patient is now speaking openly and honestly with care management coordinator from [facility] of her desire to voluntarily go to a care bed in [place], [place]. Patient feels fearful of [facility] since she has had a bad experience at said location in the past.Nursing Note:
[2023-08-14] MEDS: Estradiol 1 MG TAB PO (11:41)
--- NOTE | 2023-08-14 12:01 | NUR.NOTE ---
RN faxes nursing notes to [facility].Nursing Note:
--- NOTE | 2023-08-14 12:50 | NUR.NOTE ---
Patient receives a call from [facility] and is informed she will be going to [place] in the morning. Patient had hoped to go to a care bed in [place], [place]. Patient tells RN she knows where things are in [facility] and will kill herself in said facility.Nursing Note:
[2023-08-14] MEDS: Estradiol 1 MG TAB 1.5 MG PO (19:57)
[2023-08-14] MEDS: Rosuvastatin 10 MG TAB PO (19:59)
[2023-08-14] MEDS: HYDROmorphone 2 MG TAB PO (20:00)
[2023-08-14] MEDS: valACYclovir 500 MG TAB PO (21:18)
[2023-08-14] MEDS: Levothyroxine 50 MCG TAB PO (21:18)
[2023-08-14] MEDS: lamoTRIgine 100 MG TAB PO (21:18)
--- NOTE | 2023-08-14 21:50 | NUR.NOTE ---
Nursing Note:Patient's brought in home medication--Farxiga. Pharmacy already gone for the day, so I put in a bag with patient's label on it. Gaming Floor Supervisor area. Medicine bottle still has seal on.
[2023-08-15] VITALS (43 sets, daily range): BP systolic 103–140; BP diastolic 58–81; PULSE 75–101; RESP 8–25; TEMP 36.5–36.8; O2SAT 95–98
[2023-08-15] MEDS: Acetaminophen 325 MG TAB PO ×2 (05:49→21:10)
[2023-08-15] MEDS: Prochlorperazine 5 MG TAB 10 MG PO (05:49)
[2023-08-15 07:14] LABS: Anion Gap 8.7 mmol/L (3-11); BUN 11 mg/dL (7-18); CO2 28.3 mmol/L (21.0-32.0); CREATININE 0.6 mg/dL (0.55-1.02); Calcium 9.2 mg/dL (8.5-10.1); Chloride 104 mmol/L (98-107); Estimated GFR 110.65 (mL/min/1.73m2); Glucose 162 mg/dL (74-106); Magnesium 1.3 mg/dL (1.8-2.4); Potassium 3.8 mmol/L (3.5-5.1); Sodium 141 mmol/L (136-145)
[2023-08-15] MEDS: Insulin Aspart 300 UNITS/3 ML PEN SC ×3 (08:42→21:15)
[2023-08-15] MEDS: buPROPion-CR 150 MG TABCR PO ×2 (09:09→21:00)
[2023-08-15] MEDS: Aspirin E.C. 81 MG TABEC PO (09:09)
[2023-08-15] MEDS: Cholecalciferol (Vitamin D3) 1,000 UNIT TAB 2000 UNITS PO (09:09)
[2023-08-15] MEDS: Cyanocobalamin 500 MCG TAB 1000 MCG PO (09:10)
[2023-08-15] MEDS: Estradiol 1 MG TAB PO (09:10)
[2023-08-15] MEDS: Loratidine 10 MG TAB PO (09:10)
[2023-08-15] MEDS: DULoxetine 30 MG CAP PO (09:10)
[2023-08-15] MEDS: Omeprazole 20 MG CAPCR PO (09:11)
[2023-08-15] MEDS: Magnesium Chloride 64 MG TABCR 128 MG PO ×2 (09:11→20:20)
[2023-08-15] MEDS: Pregabalin 100 MG CAP PO ×3 (09:13→21:00)
[2023-08-15] MEDS: MAGNESIUM SULFATE 4 GM/100 ML BAG IVPB (09:14)
[2023-08-15] MEDS: HYDROmorphone 2 MG TAB PO ×2 (09:34→21:10)
--- NOTE | 2023-08-15 09:46 | CMSP_ITS ---
Date of service: 08/15/23 Time of Service: 09:46 Care Management Safety Plan Status Status: Involuntary Reason for Wait Reason for Wait: Medical Clearance Safety Plan Safety Plan: Chief Complaint: Jammie presented to [facility] after taking 30-45 1mg tablets of her own clonazepam. Jammie reports that she was having family issues with her children prior to her taking the presumed intentional overdose (her s/o, Yoni reported to the provider that this was intentional). Jammie is currently admitted to the ICU, and is being closely monitored, following guidance from poison control. After two code corey, and Jammie not willing to interact with JONES Cummings; an EE was completed to hold Jammie involuntarily for her safety. A second certification was completed on 08/13/23, in which the involuntary hold was certified. signed the AIT, at the request of [facility], on 08/14/2023. At this time, Jammie is not medically cleared, and continues to be monitored closely at ICU level of care. INVOLUNTARY?FOR INPATIENT PSYCHIATRIC STABILIZATION. Safety plan?has been established to meet the needs of the patient, and cons ideration of the care team, to adhere to patient goals, identify restrictions based on behavioral status, address nutrition, and determine allowed personal belongings, tools for hygiene and personal care. Determine level of activity including ambulation, level of supervision, visitors, and determine privileges based on behaviors and level of engagement by pt. SAFETY PLAN: 1. Will remain on SI/HI precautions. In Paper Clothes or hospital gown. 2. Will remain in room under direct supervision of one-on-one staff at all times provided by CPSO, DIRECTOR PHONE, AIR DEFENSE ARTILLERY OFFICER tour narrator. 3. May have paper cups, plates, finger foods as well as a cardboard spoon 4. Follow [facility] Management of the Admitted Behavioral Health Patient policy. 5. Comfort bath system only. 6. No personal belongings 7. Visitors: limited to Yoni, at RN discretion. 8. Activities: soft cart items, at RN discretion. 9. ?Bathroom privileges with supervision 10. Phone: Yoni ([phone]) and legal. 11. Due to INVOLUNTARY status, patient is being held at [facility] by the Department of Mental Health ([facility]). A 2nd certification by [facility] Psychiatrist was performed and the involuntary hold was certified. Staff will provide de-escalation support (CPI) as needed. If patient wishes to leave [facility], staff will contact [facility] Crisis Screener ([phone]) and On-Call Pen Tester ([phone]) as soon as possible. In the event of elopement, notify [facility] Police ([phone]). Patient is currently involuntarily at [facility]. [facility] Frontline Outreach Worker will continue seeking placement. Please contact the Appetizer Packer Pen Tester ([phone]) for any needed changes to Safety Plan. Safety plan has been provided to interdepartmental care team. Patient will be transported by photographic process screen maker at time of discharge.
--- NOTE | 2023-08-15 09:46 | PDOC.CMSAFE ---
Date of service: 08/15/23 Time of Service: 09:46 Care Management Safety Plan Status Status: Involuntary Reason for Wait Reason for Wait: Medical Clearance Safety Plan Safety Plan: Chief Complaint: Jammie presented to [facility] after taking 30-45 1mg tablets of her own clonazepam. Jammie reports that she was having family issues with her children prior to her taking the presumed intentional overdose (her s/o, Yoni reported to the provider that this was intentional). Jammie is currently admitted to the ICU, and is being closely monitored, following guidance from poison control. After two code corey, and Jammie not willing to interact with JONES Cummings; an EE was completed to hold Jammie involuntarily for her safety. A second certification was completed on 08/13/23, in which the involuntary hold was certified. ADY signed the AIT, at the request of [facility], on 08/14/2023. At this time, Jammie is not medically cleared, and continues to be monitored closely at ICU level of care. INVOLUNTARY?FOR INPATIENT PSYCHIATRIC STABILIZATION. Safety plan?has been established to meet the needs of the patient, and consideration of the care team, to adhere to patient goals, identify restrictions based on behavioral status, address nutrition, and determine allowed personal belongings, tools for hygiene and personal care. Determine level of activity including ambulation, level of supervision, visitors, and determine privileges based on behaviors and level of engagement by pt. SAFETY PLAN: 1. Will remain on SI/HI precautions. In Paper Clothes or hospital gown. 2. Will remain in room under direct supervision of one-on-one staff at all times provided by CPSO, SCHOOL DIRECTOR, CLEANER AND PREPARER musical instrument maker or repairer. 3. May have paper cups, plates, finger foods as well as a cardboard spoon 4. Follow [facility] Management of the Admitted Behavioral Health Patient policy. 5. Comfort bath system only. 6. No personal belongings 7. Visitors: limited to gilma Yoni, at RN discretion. 8. Activities: soft cart items, at RN discretion. 9. ?Bathroom privileges with supervision 10. Phone: Yoni ([phone]) and legal. 11. Due to INVOLUNTARY status, patient is being held at [facility] by the Department of Mental Health ([facility]). A 2nd certification by [facility] Psychiatrist was performed and the involuntary hold was certified. Staff will provide de-escalation support (CPI) as needed. If patient wishes to leave [facility], staff will contact [facility] Crisis Screener ([phone]) and On-Call Community Advocate ([phone]) as soon as possible. In the event of elopement, notify [facility] Police ([phone]). Patient is currently involuntarily at [facility]. [facility] Frontline Manufacturing Intern will continue seeking placement. Please contact the Medical Librarian Community Advocate ([phone]) for any needed changes to Safety Plan. Safety plan has been provided to interdepartmental care team. Patient will be transported by verification manager at time of discharge.
[2023-08-15] MEDS: Polyethylene Glycol 3350 17 GM PACKET PO (10:03)
[2023-08-15] MEDS: Docusate Sodium 100 MG CAP PO ×2 (10:03→21:10)
--- NOTE | 2023-08-15 10:04 | NUR.NOTE ---
Patient is given Miralax and Docusate to assist with bowel movement.Nursing Note:
--- NOTE | 2023-08-15 12:13 | CMPROGNOTE_ITS ---
Date of service: 08/15/23 Time of Service: 12:13 Care Management Progress Note Progress Note Text Progress Note Text: S/O: Jammie is sitting in a chair when CM comes to see her. She states she continues to improve and denies feeling depressed. She goes on to say she never was suicidal and talks about the events that led to her taking an overdose of medication. She further explains that she did not take the medication in a suicide attempt but took it because she felt overwhelmed by the events that had just occurred. CM advises her she is still on involuntary status at this time and that the plan remains for [facility] to seek placement for her. [facility] [place] again to inquire about Jammie. Nursing staff advised them that Jammie is not currently medically cleared due to a low magnesium level of 1.3 but that placement is still being sought for her. Jammie reportedly has a bed offer at [facility] when medically cleared. Per [facility], patient's preference would be to go to [facility] [place]. CM contacted [facility] at the request of medical provider to request a reassessment of patient to see if she can be walked off of the EE. The reassessment by an [facility] QMHP is expected to occur this afternoon. A: Jammie is a 48 year old female admitted to [facility] on 08/12/2023 for an intentional Clonazepam overdose. P: Jammie remains at [facility] on EE status. Per a phone conversation with Juan [facility] crisis screener, the plan is unlikely to change but at the request of medical provider, patient will be reassessed this afternoon by a QMHP. Jammie is not yet medically cleared. Once she is medically cleared for placement, she will be transferred to either [place] or [facility] when a bed is available for inpatient psychiatric stabilization. She will be transported by secure transport, coordinated by [facility]. CM will continue to follow. Status Status: Involuntary Reason for Wait: Inpatient Admission
--- NOTE | 2023-08-15 12:13 | PDOC.CMPRO ---
Date of service: 08/15/23 Time of Service: 12:13 Care Management Progress Note Progress Note Text Progress Note Text: S/O: Jammie is sitting in a chair when CM comes to see her. She states she continues to improve and denies feeling depressed. She goes on to say she never was suicidal and talks about the events that led to her taking an overdose of medication. She further explains that she did not take the medication in a suicide attempt but took it because she felt overwhelmed by the events that had just occurred. CM advises her she is still on involuntary status at this time and that the plan remains for [facility] to seek placement for her. [facility] called again to inquire about Jammie. Nursing staff advised them that Jammie is not currently medically cleared due to a low magnesium level of 1.3 but that placement is still being sought for her. Jammie reportedly has a bed offer at [facility] when medically cleared. Per [facility], patient's preference would be to go to [facility] over [place]. CM contacted [facility] at the request of medical provider to request a reassessment of patient to see if she can be walked off of the EE. The reassessment by an [facility] QMHP is expected to occur this afternoon. A: Jammie is a 48 year old female admitted to [facility] on 08/12/2023 for an intentional Clonazepam overdose. P: Jammie remains at [facility] on EE status. Per a phone conversation with Juan [facility] crisis screener, the plan is unlikely to change but at the request of medical provider, patient will be reassessed this afternoon by a QMHP. Jammie is not yet medically cleared. Once she is medically cleared for placement, she will be transferred to either [place] or [facility] when a bed is available for inpatient psychiatric stabilization. She will be transported by secure transport, coordinated by [facility]. CM will continue to follow. Status Status: Involuntary Reason for Wait: Inpatient Admission
--- NOTE | 2023-08-15 12:35 | PGE_ITS ---
Date of Service Date of service: 08/15/23 Time of Service: 12:35 Assessment and Plan Assessment and plan (1) Suicide attempt by benzodiazepine overdose: Status: Acute Assessment and plan: Mental status continues to improve. BPs improved - not requiring IVF support. Ok to transfer out of the ICU[facility] I discussed the patient's quest ion with care management, and mental health was asked to come reevaluate. (2) Toxic metabolic encephalopathy: Status: Acute Assessment and plan: Due to benzodiazepine overdose. Improved. Continue to monitor mental status. (3) Hypomagnesemia: Status: Acute Assessment and plan: Replete, recheck in am (4) Hypotension: Status: Resolved Assessment and plan: In setting of benzodiazepine overdose, this is expected. D/c IVF. Not yet ready for resumption of metoprolol and entresto. Does have a h/o cardiomyopathy s/p recent AICD. No evidence of an infectious process or that this is a cardiogenic shock at this time. Her wounds no longer appear infected. (5) Type 2 diabetes mellitus: Status: Chronic Assessment and plan: Hold metformin and monitor for lactic acidosis. Hold dulaglutide. Cover with SSI. 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 Abstain from chemical DVT ppx for now due to h/o heme Positive stools (repeat ordered). (7) Discharge planning issues: Assessment and plan: Full code Transfer out of the ICU. [facility]. Subjective Subjective Interval history since last seen: I'm not suicidal anymore. Can I just go home? Denies dizziness, CP, SOB, n/v. Less somnolent. BP stable off of IVF. The patient tells me that her baseline BP runs in low 100s-110s, even when on metoprolol and entresto, so she is not quite ready to resume those yet. She states she just finished her 2nd course of clindamycin for the infected sites of the AICD as an outpatient. Being transferred to the medical surgical floor. Exam Narrative Exam Narrative: General: Obese female who is much more alert and engaged, A&Ox3, appears comfortable in bed Skin: incisions in epigastrium and on L chest wall appear to be healing well. The incision under the L breast still has a tiny area of an opening which does not appear to be actively draining. There is dry serosanguenous discharge (a tiny amount) on the dressing of that wound. HEENT: EOMI, MMM Cardiovascular: RRR, no m/r/g Lungs: CTAB Gastrointestinal: soft, nontender, nondistended Extremities: no edema BLEs, 2+ pedal pulses B, no c/c Objective Last Vital Signs Temp 36.5 C 08/15/23 08:51 Pulse 81 08/15/23 10:01 Resp 15 08/15/23 11:30 BP 109/69 08/15/23 10:01 Pulse Ox 95 08/15/23 08:51 Laboratory Results - last 24 hr 08/15/23 05:36 Sodium 141 Potassium 3.8 Chloride 104 Carbon Dioxide 28.3 Anion Gap 8.7 BUN 11 Creatinine 0.6 Est GFR (CKD-EPI 2020) 110.65 Glucose 162 H Calcium 9.2 Magnesium 1.3 L Time Spent with Patient Time Spent with Patient: 25-34 minutes Time was spent: preparing to see the patient(eg.review tests), obtaining and/or reviewing separately otained hiistory, ordering medications,tests, procedures, referring, communicating with other health direct support professional caregiver, indepentently interpreting results, counseling the patient and care coordination
--- NOTE | 2023-08-15 13:08 | NUR.NOTE ---
Patient's status changes to Med/Surg level.Nursing Note:
--- NOTE | 2023-08-15 13:55 | NUR.NOTE ---
Alizeet's pajamas and phone are given to patient's to take home.Nursing Note:
[2023-08-15] MEDS: Rosuvastatin 10 MG TAB PO (20:18)
[2023-08-15] MEDS: Estradiol 1 MG TAB 1.5 MG PO (20:59)
[2023-08-15] MEDS: lamoTRIgine 100 MG TAB PO (20:59)
[2023-08-15] MEDS: valACYclovir 500 MG TAB PO (20:59)
[2023-08-15] MEDS: Levothyroxine 50 MCG TAB PO (20:59)
[2023-08-15] MEDS: Melatonin 3 MG TAB 9 MG PO (21:00)
[2023-08-15] MEDS: Normal Saline Flush 10 ML SYR IVP (21:00)
[2023-08-16 07:10] LABS: Anion Gap 8.4 mmol/L (3-11); BUN 16 mg/dL (7-18); CO2 28.6 mmol/L (21.0-32.0); CREATININE 0.7 mg/dL (0.55-1.02); Calcium 9.2 mg/dL (8.5-10.1); Chloride 104 mmol/L (98-107); Estimated GFR 106.62 (mL/min/1.73m2); Glucose 127 mg/dL (74-106); Magnesium 1.5 mg/dL (1.8-2.4); Potassium 3.7 mmol/L (3.5-5.1); Sodium 141 mmol/L (136-145)
[2023-08-16] MEDS: Cholecalciferol (Vitamin D3) 1,000 UNIT TAB 2000 UNITS PO (08:43)
[2023-08-16] MEDS: Cyanocobalamin 500 MCG TAB 1000 MCG PO (08:43)
[2023-08-16] MEDS: Normal Saline Flush 10 ML SYR IVP ×2 (08:43→21:41)
[2023-08-16] MEDS: MAGNESIUM SULFATE 4 GM/100 ML BAG IVPB (08:43)
[2023-08-16] MEDS: buPROPion-CR 150 MG TABCR PO ×2 (08:44→21:38)
[2023-08-16] MEDS: Pregabalin 100 MG CAP PO ×3 (08:44→21:40)
[2023-08-16] MEDS: Magnesium Chloride 64 MG TABCR 128 MG PO ×2 (08:44→21:40)
[2023-08-16] MEDS: Estradiol 1 MG TAB PO (08:44)
[2023-08-16] MEDS: DULoxetine 30 MG CAP PO (08:44)
[2023-08-16] MEDS: Loratidine 10 MG TAB PO (08:44)
[2023-08-16] MEDS: Omeprazole 20 MG CAPCR PO (08:44)
[2023-08-16] MEDS: Aspirin E.C. 81 MG TABEC PO (08:44)
[2023-08-16] MEDS: HYDROmorphone 2 MG TAB PO ×2 (08:52→20:00)
[2023-08-16 09:10] VITALS: BP 106/71; PULSE 85; RESP 18; TEMP 36.2; O2SAT 94
[2023-08-16] MEDS: Metoprolol 12.5 MG TAB PO ×2 (13:11→21:39)
[2023-08-16] MEDS: Acetaminophen 325 MG TAB PO ×2 (13:11→20:00)
[2023-08-16 13:12] VITALS: BP 113/78; PULSE 98; RESP 18; TEMP 36.3; O2SAT 98
--- NOTE | 2023-08-16 14:24 | PDOC.CMSAFE ---
Date of service: 08/16/23 Time of Service: 14:25 Care Management Safety Plan Status Status: Involuntary Reason for Wait Reason for Wait: Inpatient Admission Safety Plan Safety Plan: Chief Complaint: Jammie presented to [facility] after taking 30-45 1mg tablets of her own clonazepam. Jammie reports that she was having family issues with her children prior to her taking the presumed intentional overdose (her s/o, Yoni reported to the provider that this was intentional). Jammie is currently admitted to the ICU, and is being closely monitored, following guidance from poison control. After two code corey, and Jammie not willing to interact with JONES Cummings; an EE was completed to hold Jammie involuntarily for her safety. A second certification was completed on 08/13/23, in which the involuntary hold was certified. signed the AIT, at the request of [facility], on 08/14/2023. At this time, Jammie is not medically cleared, and continues to be monitored closely. INVOLUNTARY?FOR INPATIENT PSYCHIATRIC STABILIZATION. Safety plan?has been established to meet the needs of the patient, and consideration of the care team, to adhere to patient goals, identify restrictions based on behavioral status, address nutrition, and determine allowed personal belongings, tools for hygiene and personal care. Determine level of activity including ambulation, level of supervision, visitors, and determine privileges based on behaviors and level of engagement by pt. SAFETY PLAN: 1. Will remain on SI/HI precautions. In Paper Clothes or hospital gown. ?2. Will remain in room under direct supervision of one-on-one staff at all times provided by CPSO, STONER HAND, ERP DEVELOPER hay rake operator. ?3. May have paper cups, plates, finger foods as well as a cardboard spoon to eat meals with. ?4. Follow [facility] Management of the Admitted Behavioral Health Patient policy. ?5. Comfort bath system only, shower permitted at RN discretion. ?6. No personal belongings with the exception of shampoo, conditioner and body wash which are to be removed from patient's room once she is done showering. ?7. Visitors: Per [facility] Visitor Policy and at RN discretion. ?8. Activities: soft cart items, television and other activities at RN discretion. ?9. Bathroom available in room without limitation on M/S. ?10. Phone: may use hospital phone to contact Yoni ([phone]), 13 year old daughter and legal at RN discretion. ?11. Due to INVOLUNTARY status, patient is being held at [facility] by the Department of Mental Health ([facility]).? A 2nd certification by [facility] Psychiatrist was performed and the involuntary hold was certified.? Staff will provide de-escalation support (CPI) as needed. If patient wishes to leave [facility], staff will contact [facility] Crisis Screener ([phone]) and On-Call Body Component Engineer ([phone]) as soon as possible. In the event of elopement, notify [facility] Police ([phone]). Patient is currently involuntarily at [facility]. [facility] Frontline Field Cane Scale Clerk will continue seeking placement. Please contact the Neurophysiological Technician Body Component Engineer ([phone]) for any needed changes to Safety Plan. Safety plan has been provided to interdepartmental care team. Patient will be transported by winding rack operator at time of discharge.
--- NOTE | 2023-08-16 16:02 | CMPROGNOTE_ITS ---
Date of service: 08/16/23 Time of Service: 16:02 Care Management Progress Note Progress Note Text Progress Note Text: S/O: Jammie is sitting up in bed when CM comes to meet with her. She shares she has been inpatient at the [facility] twice in the past and did not have a good experience either time. CM advises her she likely is returning to [place] and Jammie is accepting of this. We spend some time discussing the importance of learning good coping skills in order to appropriately deal with stress without becoming overwhelmed. Jammie acknowledges that she needs to get back into counseling and states she used to see a counselor at [facility] but the counselor left the agency. She reports she has been trying to find a therapist in the community who does [id number] therapy but thus far, she has had no luck. CM provides her with a list of community therapists, along with their contact numbers, to assist her in her search. A: Jammie is a 48 year old female admitted to [facility] on 08/12/23 for an intentional Clonazepam overdose. P: Jammie remains at [facility] on EE status. Jammie is not yet medically cleared as her magnesium level has improved but remains low at 1.5 L.? Once she is medically cleared for placement, she will be transferred to [place] when a bed is available for inpatient psychiatric stabilization.? She will be transported by secure transport, coordinated by [facility].? CM will continue to follow. MH Services (Omit if N/A) Current MH Services: [facility] Status Status: Involuntary Reason for Wait: Inpatient Admission
[2023-08-16] MEDS: clonazePAM 1 MG TAB PO (17:58)
--- NOTE | 2023-08-16 18:41 | W.PM.PROGNOT ---
Date of Service Date of service: 08/16/23 Time of Service: 18:41 Assessment and Plan Assessment and plan (1) Suicide attempt by benzodiazepine overdose: Status: Acute Assessment and plan: Mental status continues to improve. BPs improved - not requiring IVF support. Medically cleared from this stand point[facility] I discussed the patient's question with care management, and mental health was asked to come reevaluate. (2) Toxic metabolic encephalopathy: Status: Acute Assessment and plan: Due to benzodiazepine overdose. Improved. Continue to monitor mental status. (3) Hypomagnesemia: Status: Acute Assessment and plan: Replete, recheck in am (4) Hypotension: Status: Resolved Assessment and plan: In setting of benzodiazepine overdose, this is expected. Metoprolol restarted today - at a lower dose. Would uptitrate as BP permits and restart entresto tomorrow. Does have a h/o cardiomyopathy s/p recent AICD. No evidence of an infectious process or that this is a cardiogenic shock at this time. Her wounds no longer appear infected. (5) Type 2 diabetes mellitus: Status: Chronic Assessment and plan: Hold metformin and monitor for lactic acidosis. Hold dulaglutide. Cover with SSI. Qualifiers: Diabetes mellitus bed bug exterminator insulin use: without bed bug exterminator use Diabetes mellitus complication status: without complication Qualified Code(s): E11.9 - Type 2 diabetes mellitus without complications (6) DVT prophylaxis: Status: Acute Assessment and plan: SCDs. Abstain from chemical DVT ppx for now due to h/o heme Positive stools (repeat ordered). (7) Discharge planning issues: Assessment and plan: Full code [facility]. Subjective Subjective Interval history since last seen: When I saw the patient, she was inconsolable, crying after her daughter came to see her. She is unable to stop crying to talk to me. She is not answering my questions. Exam Narrative Exam Narrative: General: Obese female who is inconsolable, sitting up in bed, not answering my questions HEENT: covering eyes (crying) Cardiovascular: not cooperating with exam Lungs: appropriate breathing pattern considering crying. Gastrointestinal: soft, nontender, nondistended Extremities: no edema BLEs Objective Last Vital Signs Temp 36.3 C L 08/16/23 13:12 Pulse 98 H 08/16/23 13:12 Resp 18 08/16/23 13:12 BP 113/78 08/16/23 13:12 Pulse Ox 98 08/16/23 13:12 Laboratory Results - last 24 hr 08/16/23 05:50 Sodium 141 Potassium 3.7 Chloride 104 Carbon Dioxide 28.6 Anion Gap 8.4 BUN 16 Creatinine 0.7 Est GFR (CKD-EPI 2020) 106.62 Glucose 127 H Calcium 9.2 Magnesium 1.5 L Time Spent with Patient Time Spent with Patient: <25 minutes Time was spent: preparing to see the patient(eg.review tests), obtaining and/or reviewing separately otained hiistory, ordering medications,tests, procedures, referring, communicating with other health home health aide caregiver, indepentently interpreting results, counseling the patient and care coordination
[2023-08-16 19:37] VITALS: BP 110/78; PULSE 80; RESP 18; TEMP 36; O2SAT 94
[2023-08-16] MEDS: Prochlorperazine 5 MG TAB 10 MG PO (19:38)
[2023-08-16] MEDS: Estradiol 1 MG TAB 1.5 MG PO (21:38)
[2023-08-16] MEDS: Levothyroxine 50 MCG TAB PO (21:39)
[2023-08-16] MEDS: Melatonin 3 MG TAB 9 MG PO (21:39)
[2023-08-16] MEDS: lamoTRIgine 100 MG TAB PO (21:40)
[2023-08-16] MEDS: Rosuvastatin 10 MG TAB PO (21:40)
[2023-08-16] MEDS: valACYclovir 500 MG TAB PO (21:40)
[2023-08-16 23:44] VITALS: BP 105/72; PULSE 75; RESP 18; TEMP 35.2; O2SAT 93
[2023-08-17 05:50] VITALS: BP 106/72; PULSE 82; RESP 18; TEMP 36.1; O2SAT 92
[2023-08-17 06:32] LABS: Anion Gap 7.8 mmol/L (3-11); BUN 16 mg/dL (7-18); CO2 28.2 mmol/L (21.0-32.0); CREATININE 0.6 mg/dL (0.55-1.02); Calcium 9.2 mg/dL (8.5-10.1); Chloride 104 mmol/L (98-107); Estimated GFR 110.65 (mL/min/1.73m2); Glucose 133 mg/dL (74-106); Magnesium 1.6 mg/dL (1.8-2.4); Potassium 3.9 mmol/L (3.5-5.1); Sodium 140 mmol/L (136-145)
[2023-08-17] MEDS: Loratidine 10 MG TAB PO (08:03)
[2023-08-17] MEDS: HYDROmorphone 2 MG TAB PO ×2 (08:03→09:37)
[2023-08-17] MEDS: buPROPion-CR 150 MG TABCR PO ×2 (08:03→20:30)
[2023-08-17] MEDS: Acetaminophen 325 MG TAB PO (08:03)
[2023-08-17] MEDS: Cholecalciferol (Vitamin D3) 1,000 UNIT TAB 2000 UNITS PO (08:04)
[2023-08-17] MEDS: Metoprolol 12.5 MG TAB PO ×2 (08:04→20:30)
[2023-08-17] MEDS: Pregabalin 100 MG CAP PO ×3 (08:04→20:30)
[2023-08-17] MEDS: Estradiol 1 MG TAB PO (08:04)
[2023-08-17] MEDS: Aspirin E.C. 81 MG TABEC PO (08:04)
[2023-08-17] MEDS: Omeprazole 20 MG CAPCR PO (08:04)
[2023-08-17] MEDS: Cyanocobalamin 500 MCG TAB 1000 MCG PO (08:04)
[2023-08-17] MEDS: DULoxetine 30 MG CAP PO (08:04)
[2023-08-17] MEDS: Magnesium Chloride 64 MG TABCR 128 MG PO ×2 (08:04→20:29)
[2023-08-17 08:05] VITALS: BP 97/67; PULSE 78; RESP 18; TEMP 36.5; O2SAT 96
[2023-08-17 11:06] VITALS: BP 116/78; PULSE 76; RESP 18; TEMP 36; O2SAT 96
[2023-08-17] MEDS: MAGNESIUM SULFATE 4 GM/100 ML BAG IVPB (11:49)
--- NOTE | 2023-08-17 14:28 | NUR.NOTE ---
nurse to nurse was called and completed with this nurse and CHARLY Lugo at [facility]. Transportation will be at 7pm Nursing Note:
[2023-08-17 15:12] VITALS: BP 107/71; PULSE 81; RESP 18; TEMP 35.9; O2SAT 96
--- NOTE | 2023-08-17 16:25 | DSE_ITS ---
Date of service: 08/17/23 Time of Service: 16:26 DS: Diagnosis Discharge Diagnosis (1) Suicide attempt by benzodiazepine overdose: Status: Acute Asessment and Plan: Mental status continues to improve. BPs improved - not requiring IVF support. Medically cleared from this stand point[facility] (2) Toxic metabolic encephalopathy: Status: Acute Asessment and Plan: Due to benzodiazepine overdose. Resolved. (3) Hypomagnesemia: Status: Acute Asessment and Plan: Repleted. (4) Hypotension: Status: Resolved Asessment and Plan: Does have a h/o cardiomyopathy s/p recent AICD. No evidence of an infectious process or that this is a cardiogenic shock at this time. Her wounds no longer appear infected. Improving with low normal BP. Adequate MAP. (5) Type 2 diabetes mellitus: Status: Chronic Asessment and Plan: Resume metformin and dulaglutide. Discharge Plan Disposition Patient Disposition: Psychiatric Hospital/Unit Specific Psychiatric Facility: [facility] Condition: Stable Discharge Details Reason For Visit: Suicide Attempt,Clonazepam Overdose Admit Date/Time: 08/12/23 17:43 Admit Provider: Bonnie Joe Attending Provider: Bonnie Joe Primary Care Provider: Edie Ellis [facility] Course Hospital Course: Ms Gottlieb is a 48 year old female with PMHx of Bipolar d/o, pulmonary hypertension, dilated cardiomyopathy, T2Dm, who was brought to [facility] ED after an intentional overdose of 30-45 1 mg of clonazepam about an hour prior to presentation. Per ED provider, her respiratory status appears stable with a VBG pending, but she was drowsy. Hospitalist admission was requested. Poison control did warn the patient might become hypotensive. Her last recorded BP is 120/75. The patient admitted to the ICU. Reportedly, prior to this the patient's sisters had taken away her daughter, perhaps serving as a stressor prior to today's events. On my hospitalist's with her, Jammie knows she is in the hospital but cannot relate what happened and fell promptly asleep. See Diagnosis Transferring to [facility]. ? Home Meds and New Rx's Prescriptions: New metoprolol tartrate 25 mg Tablet 12.5 mg PO BID Qty: 0 0RF Continued clonazepam 1 mg tablet 1 mg PO BID PRN melatonin 10 mg tablet 10 mg PO HS PRN loratadine 10 mg capsule 10 mg PO DAILY bupropion HCl [Wellbutrin SR] 150 mg tablet sustained-release 12 hr 150 mg PO BID cholecalciferol (vitamin D3) 50 mcg (2,000 unit) capsule 50 mcg PO DAILY metformin 500 mg tablet extended release 24 hr 1,000 mg PO BID rosuvastatin [Crestor] 5 MG tablet 10 mg PO QPM naratriptan 2.5 mg tablet 2.5 mg PO BID PRN riboflavin (vitamin B2) [Vitamin B-2] 50 MG tablet 200 mg PO BID polyethylene glycol 3350 17 gram/dose Powder 17 g PO DAILY PRN cyanocobalamin (vitamin B-12) 1,000 mcg tablet 1,000 mcg PO DAILY Patient Comments: TAKE ONE TABLET BY MOUTH EVERY DAY duloxetine 30 mg capsule,delayed release(DR/EC) 30 mg PO DAILY Patient Comments: Take 1 capsule by mouth once a day to replace paxil which she will wean off icosapent ethyl [Vascepa] 1 gram capsule 2 g PO BID Patient Comments: TAKE TWO CAPSULES BY MOUTH TWICE A DAY Farxiga 5 mg tablet 5 mg PO DAILY Patient Comments: Take 1 tablet by mouth once a day hydromorphone 2 mg tablet 4 mg PO BID Patient Comments: TAKE TWO TABLETS BY MOUTH TWICE A DAY pregabalin 100 mg capsule 100 mg PO TID Patient Comments: Take 1 capsule by mouth three times a day levothyroxine [Synthroid] 25 MCG tablet 50 mcg PO HS omeprazole 20 mg Capsule,Delayed Release(Dr/Ec) 20 mg PO DAILY prochlorperazine maleate 10 mg Tablet 10 mg PO DAILY PRN (Reason: Headache) albuterol sulfate [Ventolin HFA] 90 mcg/actuation Hfa Aerosol Inhaler 2 puff INHALATION QID PRN naloxone [Narcan] 4 mg/actuation [place],Non-Aerosol 1 spray INTRANASAL ONCE PRN Patient Comments: Never used. valacyclovir 1 gram tablet 500 mg PO QHS aspirin 81 mg tablet,delayed release (DR/EC) 81 mg PO DAILY Qty: 14 0RF Rx Instructions: Take 1 daily with a meal for 30 days estradiol 1 mg tablet See Rx Instructions .ROUTE .COMPLEX Patient Comments: TAKE 1 TABLET BY MOUTH EVERY MORNING THEN 2 TABLETS EVERY EVENING Rx Instructions: --> 1mg qAM and 1.5m,g qPM hydrocortisone 2.5 % cream 1 applic topical QID Qty: 30 6RF acetaminophen 500 mg capsule 1,000 mg PO Q8H PRN PRNQty: 30 0RF lamotrigine [Lamictal] 100 mg tablet 100 mg PO HS Patient Comments: TAKE 1 TABLET BY MOUTH EVERY DAY Changed magnesium oxide 400 MG tablet 400 mg PO HS Qty: 0 0RF Held naproxen 250 mg tablet 500 mg PO BID PRN Hold Instructions: Hold until PCP f/u Trulicity 1.5 mg/0.5 mL pen injector 3 mg subcut QWEEK Hold Instructions: Until f/u with PCP or if blood glucose levels begin to rise Rx Instructions: - on Entresto 97-103 mg tablet 1 tab PO BID Hold Instructions: Hold until PCP f/u or if SBP is consistently > 120 mmHg Patient Comments: TAKE ONE TABLET BY MOUTH TWICE A DAY Discontinued metoprolol succinate 100 mg tablet extended release 24 hr 100 mg PO DAILY Patient Comments: TAKE ONE TABLET BY MOUTH EVERY DAY Discharge Instructions Activity:: Activity as Tolerated Equipment/Supplies:: No Equipment Needed Diet:: Heart Healthy Discharge Orders Discharge Orders: Discharge Order (Routine); Ordered 08/17/23 Ordered By: Kolby Yuan DS: Summary Time Spent with Patient providing and/or coordinating discharge services: Greater than 30 minutes Status at Discharge Functional status at discharge: independent ambulation Overall status at discharge: patient is not back to baseline Mental Status: mental status grossly normal Speech and Movement: speech clear Mood: euthymic mood Affect: blunted Exam Narrative Exam Narrative: General: Obese female sitting up in bed. Cooperative. HEENT:sclera clear. MMM Cardiovascular:RRR Lungs: Clear. Nonlabored breathing. Gastrointestinal: soft, nontender, nondistended Extremities: no edema BLEs Psych Mental Status: mental status grossly normal Speech and Movement: speech clear Mood: euthymic mood Affect: blunted DS: Data Vitals/I&O Vitals and I&O: Vital Signs Temperature 35.9 C L 08/17/23 15:12 Temperature Source Tympanic 08/17/23 15:12 Pulse 81 08/17/23 15:12 Pulse Rhythm Regular 08/17/23 15:19 Pulse 86 08/15/23 15:00 Respiratory Rate 18 08/17/23 15:12 Respiratory Effort Normal, Non-Labored 08/17/23 15:19 Respiratory Depth Normal 08/17/23 15:19 Respiratory Pattern Normal 08/17/23 15:19 Blood Pressure 107/71 08/17/23 15:12 Blood Pressure Mean 86 08/15/23 15:17 Blood Pressure Position Supine 08/15/23 08:51 Pulse Oximetry 96 08/17/23 15:12 Respiratory End-tidal CO2 37 08/13/23 11:30 Oxygen Delivery Method Room Air 08/17/23 15:12 Oxygen Flow Rate 0 08/17/23 15:12 Pain Level 0 08/17/23 11:06 Intake & Output 08/16/23 08/17/23 08/17/23 23:59 11:59 23:59 Intake Total 100 / 350 360 / 360 Balance 100 / 350 360 / 360 Intake: IV 100 / 100 Oral 360 / 360 Other: Urine Color Yellow Urine Appearance Clear Clear Comment voids independently voids independently. Voiding Methods Toilet Toilet Data Completed and Pending Labs on day of discharge: Labs from last 24 hours 08/17/23 05:44 Sodium 140 Potassium 3.9 Chloride 104 Carbon Dioxide 28.2 Anion Gap 7.8 BUN 16 Creatinine 0.6 Est GFR (CKD-EPI 2020) 110.65 Glucose 133 H Calcium 9.2 Magnesium 1.6 L PFSH All Active Problems Hypomagnesemia (Acute) Toxic metabolic encephalopathy (Acute) Suicide attempt by benzodiazepine overdose (Acute) Intentional benzodiazepine overdose (Acute) Patellofemoral arthritis of left knee (Acute) Pulmonary hypertension (Chronic) Acute respiratory failure with hypoxia (Acute) Pulmonary edema (Acute) Acute respiratory distress (Acute) COVID-19 (Acute) Bilateral carpal tunnel syndrome (Acute) S/P R ECTR: 05/13/2022 Amplified musculoskeletal pain (Acute) Tendonitis of long head of biceps brachii of right shoulder (Acute) Bursitis of right shoulder (Acute) Traumatic tear of right rotator cuff (Acute) Calcific tendinitis of right shoulder (Acute) 40mg depo-medrol injection: 02/11/2022 Lateral epicondylitis of right elbow (Acute) 40mg depo-medrol injection: 02/11/2022 Hematest positive stools (Acute) Cardiomyopathy (Chronic) last echocardiogram 01/27/2019, LVEF 50-55%, no regional wall motion abnormalities, mild LVH, mild MR; normal RV size and function Bipolar disorder (Chronic) 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 (Acute 01/25/14) Atypical chest pain (Acute) Type 2 diabetes mellitus (Chronic) DVT prophylaxis (Acute) Palpitations (Acute) Spell of altered consciousness (Acute) Elevated brain natriuretic peptide (BNP) level (Acute) Chest pain (Acute) Screening for colon cancer (Acute) Tobacco use (Acute) Fecal occult blood test positive (Acute) Medical History Acute kidney injury Anxiety 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 (01/25/14) Bursitis of left shoulder (~03/2019) CAD (coronary artery disease) mild non-obstructive disease per cardiac cath report from [facility] 09/07/2013, more recent repeat cath unchanged but with pulmonary HTN Carpal tunnel syndrome, left Cervical radiculopathy bilateral Change in mental status Chronic migraine (03/07/15) Chronic pain syndrome Dehydration Depression Diabetes Discharge planning issues Dizziness, nonspecific Dyspnea Elbow fracture, right Fatigue Hyperlipidemia Hyperthyroidism Impingement syndrome of left shoulder (~03/2019) Lactose intolerance Left rotator cuff tear (~03/2019) Medication overuse headache (03/07/15) Migraine headache with aura (03/07/15) Migraine headache without aura (03/07/15) Morbid obesity Myalgia Orthostasis Polycystic ovaries Shortness of breath Splenomegaly Suicidal ideation Tachycardia Tendinitis of long head of biceps brachii of left shoulder (~03/2019) Unresponsive episode Urinary incontinence Surgical History History of arthroscopy of left shoulder History of section x2 History of endometrial ablation Hx of cardiac catheterization 08/2021-no stent placed Previous back surgery S/P hysterectomy Social History Smoking/Tobacco Use Status: Former Tobacco Use Quit status: quit date established Smoking risk assessment performed?: Yes Alcohol Intake: never Drug use: Never Substance use type: does not use Number of Children: 3 Current gender identity: female What is your relationship status?: Panel score (0-1 are the most socially isolated patients): 0 What type of physical activity do you participate in: none Do you feel safe at home: Yes Do you feel safe in your relationship?: Yes Female Reproductive History Menstrual control method: permanent sterilization Time Spent with Patient Time Spent with Patient: <45 minutes Time was spent: preparing to see the patient(eg.review tests), obtaining and/or reviewing separately otained hiistory, indepentently interpreting results, counseling the patient and care coordination
[2023-08-17] MEDS: Insulin Aspart 300 UNITS/3 ML PEN SC (17:43)
--- NOTE | 2023-08-17 18:40 | PDOC.CMDIS ---
Date of service: 08/17/23 Time of Service: 18:40 LACE Index Scoring Tool Questions: Length of Stay (in days): 4 - 6 Was the patient admitted via the E.D.?: Yes Comorbidities: Diabetes w/o Complication E.D. Visits: 2 Answers: Total Score: 10 Risk of Readmission: High Risk Care Management Discharge Plan Reason for Hospitalization: Clonazepam overdose; suicide attempt Discharge Plan: Jammie was transferred to [facility] for inpatient psychiatric stabilization. She was transported by [facility], coordinated by [facility], as she was an involuntary patient. She met with [facility] today, who will continue to follow her, and have discussed the possibility of her going to a step down at the Care [facility], if it is available when she discharges from . She is agreeable to the plan to go to for treatment. She will follow up with her PCP and discharge plan of care. Patient/Family Education Needs: Review discharge instructions and limitations, expectations for inpatient psychiatric care; discussion of self care needs including ask me three. Services Needed at Discharge: Psychiatric Facility ([facility]) Disposition Disposition: [place] Transport via of: Other ([facility] transport, coordinated by [facility])
[2023-08-17 20:22] VITALS: BP 103/67; PULSE 75; RESP 18; TEMP 36.1; O2SAT 94
[2023-08-17] MEDS: Estradiol 1 MG TAB 1.5 MG PO (20:27)
[2023-08-17] MEDS: Levothyroxine 50 MCG TAB PO (20:28)
[2023-08-17] MEDS: HYDROmorphone 4 MG TAB PO (20:29)
[2023-08-17] MEDS: Rosuvastatin 10 MG TAB PO (20:30)
[2023-08-17] MEDS: valACYclovir 500 MG TAB PO (20:30)
[2023-08-17] MEDS: lamoTRIgine 100 MG TAB PO (20:30)
[2023-08-18 02:35] VITALS: BP 106/70; PULSE 78; RESP 18; TEMP 36.3; O2SAT 95
[2023-08-18 07:34] VITALS: BP 112/73; PULSE 82; RESP 16; TEMP 35.6; O2SAT 96
[2023-08-18] MEDS: Normal Saline Flush 10 ML SYR IVP (07:34)
[2023-08-18] MEDS: Magnesium Chloride 64 MG TABCR 128 MG PO (07:35)
[2023-08-18] MEDS: Loratidine 10 MG TAB PO (07:35)
[2023-08-18] MEDS: Pregabalin 100 MG CAP PO ×2 (07:35→11:39)
[2023-08-18] MEDS: Cyanocobalamin 500 MCG TAB 1000 MCG PO (07:35)
[2023-08-18] MEDS: Estradiol 1 MG TAB PO (07:35)
[2023-08-18] MEDS: Cholecalciferol (Vitamin D3) 1,000 UNIT TAB 2000 UNITS PO (07:35)
[2023-08-18] MEDS: Metoprolol 12.5 MG TAB PO (07:35)
[2023-08-18] MEDS: Aspirin E.C. 81 MG TABEC PO (07:35)
[2023-08-18] MEDS: Omeprazole 20 MG CAPCR PO (07:36)
[2023-08-18] MEDS: HYDROmorphone 4 MG TAB PO (07:36)
[2023-08-18] MEDS: DULoxetine 30 MG CAP PO (07:36)
[2023-08-18] MEDS: buPROPion-CR 150 MG TABCR PO (07:36)
--- NOTE | 2023-08-18 11:02 | PDOC.CMPRO ---
Date of service: 08/18/23 Time of Service: 11:02 Care Management Progress Note Progress Note Text Progress Note Text: Jammie was scheduled to discharge last evening, but the transportation fell through, and she was not able to transfer to [facility], as expected. [facility] has coordinated transport for Jammie this afternoon, and [facility] is expecting her for admission today. She is agreeable with this plan.
[2023-08-18 11:25] VITALS: BP 107/74; PULSE 85; RESP 17; TEMP 35.5; O2SAT 93
== END 2023-08-18 12:29 | DRG 917 ==
LOC: ER 18:16 → ICU 08-13 11:38 → MS 08-15 22:03
PROVIDERS: General Practice; Admitting Provider Internal Medicine; Emergency Provider Emergency Medicine; PCP Family Medicine; Visit Provider Internal Medicine
DX: T42.4X2A Poisoning by benzodiazepines, intentional self-harm, initial encounter (principal); G92.8 Other toxic encephalopathy; I42.0 Dilated cardiomyopathy; E83.42 Hypomagnesemia; I95.9 Hypotension, unspecified; E11.9 Type 2 diabetes mellitus without complications; Z95.810 Presence of automatic (implantable) cardiac defibrillator; Z79.84 Long term (current) use of oral hypoglycemic drugs; I27.20 Pulmonary hypertension, unspecified; F31.9 Bipolar disorder, unspecified; E78.5 Hyperlipidemia, unspecified; E05.90 Thyrotoxicosis, unspecified without thyrotoxic crisis or storm; G43.909 Migraine, unspecified, not intractable, without status migrainosus; F41.9 Anxiety disorder, unspecified; M54.12 Radiculopathy, cervical region; G89.4 Chronic pain syndrome; M17.12 Unilateral primary osteoarthritis, left knee; E28.2 Polycystic ovarian syndrome; Z87.891 Personal history of nicotine dependence; E66.9 Obesity, unspecified; Z68.33 Body mass index [BMI] 33.0-33.9, adult
CPT/HCPCS: 36415; 80048; 80053; 80307; 82805; 87635; 93005; 96360; 99285; 80320; 80329; 83605; 83735; 84443; 85025; 93010; 94667; 99231; 99232; 99239; 99291; J3475; J3490

== ENCOUNTER 2023-12-01 21:50 | Emergency (ER) | payer MEDICARE, MEDICAID, SELFPAY ==
[2023-12-01 21:55] VITALS: BP 110/71; PULSE 89; RESP 18; TEMP 36.7; O2SAT 98
--- NOTE | 2023-12-01 21:57 | W.ED.GENAD ---
HPI General Stated Complaint: GenMedical Mode of arrival: ambulatory. RENATO: 5 Date/Time Provider Initiated Documentation: 12/01/23 21:51. Limitations to Documentation: no limitations. Information obtained by: patient, RN notes reviewed and old records reviewed. HPI Narrative: PAtient here with daughter who is also a patient, is requesting to have a covid test. Not feeling well x 2 weeks. Related Data Home Medications Medication Instructions Recorded Confirmed rosuvastatin 5 mg tablet (Crestor) 10 mg PO QPM 06/28/13 12/01/23 riboflavin (vitamin B2) 50 mg 200 mg PO BID 03/13/15 12/01/23 tablet (Vitamin B-2) levothyroxine 25 mcg tablet 50 mcg PO HS 03/05/17 12/01/23 (Synthroid) albuterol sulfate 90 mcg/actuation 2 puff inhalation QID PRN 03/10/19 12/01/23 aerosol inhaler (Ventolin HFA) naloxone 4 mg/actuation nasal 1 spray intranasal ONCE PRN 03/10/19 12/01/23 spray (Narcan) omeprazole 20 mg capsule,delayed 20 mg PO DAILY 03/10/19 12/01/23 release prochlorperazine maleate 10 mg 10 mg PO DAILY PRN Headache 03/10/19 12/01/23 tablet valacyclovir 1 gram tablet 500 mg PO QHS 03/21/19 12/01/23 aspirin 81 mg tablet,delayed 81 mg PO DAILY Prevent blood clot 09/30/19 12/01/23 release #14 tabs polyethylene glycol 3350 17 17 g PO DAILY PRN 12/22/19 12/01/23 gram/dose oral powder naratriptan 2.5 mg tablet 2.5 mg PO BID PRN 03/27/20 12/01/23 estradiol 1 mg tablet See Rx Instructions .Route .COMPLEX 06/10/21 12/01/23 cholecalciferol (vitamin D3) 50 50 mcg PO DAILY 11/21/21 12/01/23 mcg (2,000 unit) capsule metformin 500 mg tablet,extended 1,000 mg PO BID 11/21/21 12/01/23 release 24 hr dulaglutide 1.5 mg/0.5 mL 3 mg subcut QWEEK 12/18/21 12/01/23 subcutaneous pen [facility] hydrocortisone 2.5 % topical cream 1 applic topical QID #30 grams 12/31/21 12/01/23 naproxen 250 mg tablet 500 mg PO BID PRN 04/16/22 12/01/23 acetaminophen 500 mg capsule 1,000 mg (2 x 500 mg) PO Q8H PRN 05/13/22 12/01/23 PRN #30 caps lamotrigine 100 mg tablet 100 mg PO HS 09/08/22 12/01/23 (Lamictal) clonazepam 1 mg tablet 1 mg PO BID PRN 11/14/22 12/01/23 melatonin 10 mg tablet 10 mg PO HS PRN 11/14/22 12/01/23 bupropion HCl 150 mg tablet,12 hr 150 mg PO BID 03/03/23 12/01/23 sustained-release (Wellbutrin SR) loratadine 10 mg capsule 10 mg PO DAILY 03/03/23 12/01/23 cyanocobalamin (vitamin B-12) 1,000 mcg PO DAILY 08/13/23 12/01/23 1,000 mcg tablet dapagliflozin propanediol 5 mg 5 mg PO DAILY 08/13/23 12/01/23 tablet (Farxiga) duloxetine 30 mg capsule,delayed 30 mg PO DAILY 08/13/23 12/01/23 release hydromorphone 2 mg tablet 4 mg PO BID 08/13/23 12/01/23 icosapent ethyl 1 gram capsule 2 g PO BID 08/13/23 12/01/23 (Vascepa) pregabalin 100 mg capsule 100 mg PO TID 08/13/23 12/01/23 sacubitril 97 mg-valsartan 103 mg 1 tab PO BID 08/13/23 12/01/23 tablet (Entresto) magnesium oxide 400 mg (241.3 mg 400 mg PO HS #0 tabs 08/17/23 12/01/23 magnesium) tablet metoprolol tartrate 25 mg tablet 12.5 mg (1/2 x 25 mg) PO BID #0 08/17/23 12/01/23 tabs Previous Rx's Medication Instructions Recorded aspirin 81 mg tablet,delayed 81 mg PO DAILY Prevent blood clot 09/30/19 release #14 tabs hydrocortisone 2.5 % topical cream 1 applic topical QID #30 grams 12/31/21 acetaminophen 500 mg capsule 1,000 mg (2 x 500 mg) PO Q8H PRN 05/13/22 PRN #30 caps magnesium oxide 400 mg (241.3 mg 400 mg PO HS #0 tabs 08/17/23 magnesium) tablet metoprolol tartrate 25 mg tablet 12.5 mg (1/2 x 25 mg) PO BID #0 08/17/23 tabs Allergies Allergy/AdvReac Type Severity Reaction Status Date / Time Penicillins Allergy Severe throat Verified 12/01/23 21:57 closes Sulfa (Sulfonamide Allergy Mild Hives Verified 12/01/23 21:57 Antibiotics) lactose AdvReac Diarrhea Verified 12/01/23 21:57 Review of Systems All systems reviewed & are unremarkable except as noted in HPI and below PFSH All Active Problems (Updated 12/01/23 @ 22:28 by Cary Griffith NP) Viral URI (Acute) Intentional benzodiazepine overdose (Acute) Patellofemoral arthritis of left knee (Acute) Pulmonary hypertension (Chronic) Acute respiratory failure with hypoxia (Acute) Pulmonary edema (Acute) Acute respiratory distress (Acute) COVID-19 (Acute) Bilateral carpal tunnel syndrome (Acute) S/P R ECTR: 05/13/2022 Amplified musculoskeletal pain (Acute) Tendonitis of long head of biceps brachii of right shoulder (Acute) Bursitis of right shoulder (Acute) Traumatic tear of right rotator cuff (Acute) Calcific tendinitis of right shoulder (Acute) 40mg depo-medrol injection: 02/11/2022 Lateral epicondylitis of right elbow (Acute) 40mg depo-medrol injection: 02/11/2022 Hematest positive stools (Acute) Cardiomyopathy (Chronic) last echocardiogram 01/27/2019, LVEF 50-55%, no regional wall motion abnormalities, mild LVH, mild MR; normal RV size and function Bipolar disorder (Chronic) 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 (Acute 01/25/14) Atypical chest pain (Acute) Type 2 diabetes mellitus (Chronic) Palpitations (Acute) Spell of altered consciousness (Acute) Elevated brain natriuretic peptide (BNP) level (Acute) Chest pain (Acute) Screening for colon cancer (Acute) Tobacco use (Acute) Fecal occult blood test positive (Acute) Medical History Acute kidney injury Anxiety 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 (01/25/14) Bursitis of left shoulder (~03/2019) CAD (coronary artery disease) mild non-obstructive disease per cardiac cath report from [facility] [place] 09/07/2013, more recent repeat cath unchanged but with pulmonary HTN Carpal tunnel syndrome, left Cervical radiculopathy bilateral Change in mental status Chronic migraine (03/07/15) Chronic pain syndrome Dehydration Depression Diabetes Discharge planning issues Dizziness, nonspecific Dyspnea Elbow fracture, right Fatigue Hyperlipidemia Hyperthyroidism Impingement syndrome of left shoulder (~03/2019) Lactose intolerance Left rotator cuff tear (~03/2019) Medication overuse headache (03/07/15) Migraine headache with aura (03/07/15) Migraine headache without aura (03/07/15) Morbid obesity Myalgia Orthostasis Polycystic ovaries Shortness of breath Splenomegaly Suicidal ideation Tachycardia Tendinitis of long head of biceps brachii of left shoulder (~03/2019) Unresponsive episode Urinary incontinence Surgical History History of arthroscopy of left shoulder History of section x2 History of endometrial ablation Hx of cardiac catheterization 08/2021-no stent placed Previous back surgery S/P hysterectomy Social History Smoking/Tobacco Use Status: Former Tobacco Use Quit status: quit date established Smoking risk assessment performed?: Yes Alcohol Intake: never Drug use: Never Substance use type: does not use Number of Children: 3 Current gender identity: female What is your relationship status?: Panel score (0-1 are the most socially isolated patients): 0 What type of physical activity do you participate in: none Do you feel safe at home: Yes Do you feel safe in your relationship?: Yes Female Reproductive History Menstrual control method: permanent sterilization Exam Narrative Exam Narrative: Constitutional: Alert and oriented x3. Appears stated age. Normal body habitus. Head: Normocephalic, no trauma. Eyes: Pupils PERRL, Red reflex noted, EOM's intact. Eyelids symmetrical without lesions, discharge, or swelling. ENT: Bilateral TM's WNL, External ear normal to inspection, no mastoid TTP, swelling, or erythema, Nasal turbinates WNL, no nasal discharge. Normal dentition, Posterior pharynx WNL, no exudate. Chest: RRR, Normal S1, S2, distal pulses intact. Resp: Lungs clear to auscultation bilaterally, no wheezes, rales, or rhonchi. Abdomen: Soft, non-distended, Normoactive bowel sounds all 4 quads. Musculoskeletal: Normal gait, 5/5 strength to all four extremities. Skin: No suspicious rashes or lesions. Capillary refill less than 2 sec. Neurologic: Cranial nerves II-XII intact. Alert and oriented x 3. Motor: No deficits noted. Sensory: Intact bilaterally all 4 extremities. Reflexes: DTR's intact bilaterally.. Hematologic/Lymphatic: No ecchymosis, no lymphadenopathy. Course Vital Signs Vital signs: Vital Signs Temperature 36.7 C 12/01/23 21:55 Pulse 89 12/01/23 21:55 Respiratory Rate 18 12/01/23 21:55 Blood Pressure 110/71 12/01/23 21:55 Pulse Oximetry 98 12/01/23 21:55 Temperature 36.7 C 12/01/23 21:55 Pulse 89 12/01/23 21:55 Respiratory Rate 18 12/01/23 21:55 Blood Pressure 110/71 12/01/23 21:55 Pulse Oximetry 98 12/01/23 21:55 Pain Level 0 12/01/23 21:55 Medical Decision Making PAtient here with daughter who is also a patient, is requesting to have a covid test. Not feeling well x 2 weeks. Quality:SDOH Health Related Social Needs: No Data to Display Discharge Plan Disposition Patient Disposition: Home Condition: Stable Discharge Details Clinical Impression: Viral URI Primary Care Provider: dEie Ellis ED Provider: Cary Griffith Home Meds and New Rx's Prescriptions: No Action naproxen 250 mg tablet 500 mg PO BID PRN Hold Instructions: Hold until PCP f/u clonazepam 1 mg tablet 1 mg PO BID PRN melatonin 10 mg tablet 10 mg PO HS PRN loratadine 10 mg capsule 10 mg PO DAILY bupropion HCl [Wellbutrin SR] 150 mg tablet sustained-release 12 hr 150 mg PO BID cholecalciferol (vitamin D3) 50 mcg (2,000 unit) capsule 50 mcg PO DAILY metformin 500 mg tablet extended release 24 hr 1,000 mg PO BID Trulicity 1.5 mg/0.5 mL pen injector 3 mg subcut QWEEK Hold Instructions: Until f/u with PCP or if blood glucose levels begin to rise Rx Instructions: - on rosuvastatin [Crestor] 5 MG tablet 10 mg PO QPM naratriptan 2.5 mg tablet 2.5 mg PO BID PRN riboflavin (vitamin B2) [Vitamin B-2] 50 MG tablet 200 mg PO BID polyethylene glycol 3350 17 gram/dose Powder 17 g PO DAILY PRN cyanocobalamin (vitamin B-12) 1,000 mcg tablet 1,000 mcg PO DAILY Patient Comments: TAKE ONE TABLET BY MOUTH EVERY DAY duloxetine 30 mg capsule,delayed release(DR/EC) 30 mg PO DAILY Patient Comments: Take 1 capsule by mouth once a day to replace paxil which she will wean off icosapent ethyl [Vascepa] 1 gram capsule 2 g PO BID Patient Comments: TAKE TWO CAPSULES BY MOUTH TWICE A DAY Farxiga 5 mg tablet 5 mg PO DAILY Patient Comments: Take 1 tablet by mouth once a day hydromorphone 2 mg tablet 4 mg PO BID Patient Comments: TAKE TWO TABLETS BY MOUTH TWICE A DAY Entresto 97-103 mg tablet 1 tab PO BID Hold Instructions: Hold until PCP f/u or if SBP is consistently > 120 mmHg Patient Comments: TAKE ONE TABLET BY MOUTH TWICE A DAY pregabalin 100 mg capsule 100 mg PO TID Patient Comments: Take 1 capsule by mouth three times a day metoprolol tartrate 25 mg Tablet 12.5 mg PO BID Qty: 0 0RF magnesium oxide 400 MG tablet 400 mg PO HS Qty: 0 0RF levothyroxine [Synthroid] 25 MCG tablet 50 mcg PO HS omeprazole 20 mg Capsule,Delayed Release(Dr/Ec) 20 mg PO DAILY prochlorperazine maleate 10 mg Tablet 10 mg PO DAILY PRN (Reason: Headache) albuterol sulfate [Ventolin HFA] 90 mcg/actuation Hfa Aerosol Inhaler 2 puff INHALATION QID PRN naloxone [Narcan] 4 mg/actuation [place],Non-Aerosol 1 spray INTRANASAL ONCE PRN Patient Comments: Never used. valacyclovir 1 gram tablet 500 mg PO QHS aspirin 81 mg tablet,delayed release (DR/EC) 81 mg PO DAILY Qty: 14 0RF Rx Instructions: Take 1 daily with a meal for 30 days estradiol 1 mg tablet See Rx Instructions .ROUTE .COMPLEX Patient Comments: TAKE 1 TABLET BY MOUTH EVERY MORNING THEN 2 TABLETS EVERY EVENING Rx Instructions: --> 1mg qAM and 1.5m,g qPM hydrocortisone 2.5 % cream 1 applic topical QID Qty: 30 6RF acetaminophen 500 mg capsule 1,000 mg PO Q8H PRN PRNQty: 30 0RF lamotrigine [Lamictal] 100 mg tablet 100 mg PO HS Patient Comments: TAKE 1 TABLET BY MOUTH EVERY DAY Discharge Instructions Instructions: Upper Respiratory Infection (ED) Additional Instructions: COVID and flu swab was negative. Follow up with primary care provider in 3-5 days. Return to ED sooner if any worsening or concerns. Increase oral fluids. Please take Tylenol or Ibuprofen with food every 4-6 hours as needed for pain and swelling. Referrals: Edie Ellis MD [Primary Care Provider] - 5 days
== END 2023-12-01 22:30 | disposition home or self-care (01) ==
PROVIDERS: Emergency Provider Registered Nurse Emergency; PCP Family Medicine
DX: R53.81 Other malaise (principal); J06.9 Acute upper respiratory infection, unspecified; B97.89 Other viral agents as the cause of diseases classified elsewhere; E11.9 Type 2 diabetes mellitus without complications; Z79.84 Long term (current) use of oral hypoglycemic drugs; Z87.891 Personal history of nicotine dependence
CPT/HCPCS: 87426; 99283

== ENCOUNTER 2023-12-02 17:08 | Emergency (ER) | payer MEDICARE, MEDICAID, SELFPAY ==
[2023-12-02 17:12] VITALS: BP 131/79; PULSE 97; RESP 20; TEMP 37.1; O2SAT 99
--- NOTE | 2023-12-02 17:15 | DI.CT_ITS ---
Exam(s) CT THORACIC LUMBAR SPINE WO EXAM: CT THORACIC LUMBAR SPINE WO CLINICAL HISTORY: Fall, Back pain. TECHNIQUE: Imaging Protocol: Axial computed tomography images with coronal and sagittal reformatted images were created and reviewed. CONTRAST MATERIAL: Intravenous: None COMPARISON: No exams were available for comparison FINDINGS: THORACIC SPINAL COLUMN: No fractures nor listhesis. No facet malalignment. No acute compromise of t he canal. No osseous lesions. LUMBOSACRAL SPINAL COLUMN: No evidence of acute fracture. No listhesis. Advanced disc space narrowi ng L5-S1 level and posterior bony ridging evident at this level. Mild canal stenosis at this level a s well as mild-moderate bilateral foraminal stenosis. IMPRESSION: No fractures in the thoracolumbar spine. Advanced disc space narrowing at L5-S1 level. There appears to be bilateral mild-moderate foraminal stenosis at this level. Called by myself to ER for provider. RADIATION DOSE DELIVERED: 1,848.22mGy.cm Total DLP DATA REPOSITORY: All CT scans at this facility are submitted to the National Radiology Data Registry (NRDR) Dose Index Registry (DIR) with the [employer] ([employer]). RADIATION OPTIMIZATION: All CT scans at this facility use at least one of these dose optimization te chniques: automated exposure control; mA and/or kV adjustment per patient size (includes targeted exa ms where dose is matched to clinical indication); or iterative reconstruction.
--- NOTE | 2023-12-02 17:30 | ED.GENADUL_ITS ---
HPI General Stated Complaint: Nk/Back Pain Mode of arrival: EMS. RENATO: 3 Date/Time Provider Initiated Documentation: 12/02/23 17:19. Limitations to Documentation: no limitations. Information obtained by: patient, EMS, RN notes reviewed and old records reviewed. HPI Narrative: 48-year-old female presents to the ER via EMS with a chief complaint of lower back pain status post a fall which occurred today at noon. Patient slipped on ice and did a split while walking her dog she was able to crawl back into her house up 2 flights of stairs and into her bed. She did take naproxen Lyrica after the fall. She did have Dilaudid 4 mg at 8 AM this morning. She is complaining of lower back pain. She denies any saddle anesthesia, she denies any loss of bowel or bladder control. She also reports that the numbness and tingling in her legs has improved with the Lyrica. Related Data Home Medications Medication Instructions Recorded Confirmed rosuvastatin 5 mg tablet (Crestor) 10 mg PO QPM 06/28/13 12/01/23 riboflavin (vitamin B2) 50 mg 200 mg PO BID 03/13/15 12/01/23 tablet (Vitamin B-2) levothyroxine 25 mcg tablet 50 mcg PO HS 03/05/17 12/01/23 (Synthroid) albuterol sulfate 90 mcg/actuation 2 puff inhalation QID PRN 03/10/19 12/01/23 aerosol inhaler (Ventolin HFA) naloxone 4 mg/actuation nasal 1 spray intranasal ONCE PRN 03/10/19 12/01/23 spray (Narcan) omeprazole 20 mg capsule,delayed 20 mg PO DAILY 03/10/19 12/01/23 release prochlorperazine maleate 10 mg 10 mg PO DAILY PRN Headache 03/10/19 12/01/23 tablet valacyclovir 1 gram tablet 500 mg PO QHS 03/21/19 12/01/23 aspirin 81 mg tablet,delayed 81 mg PO DAILY Prevent blood clot 09/30/19 12/01/23 release #14 tabs polyethylene glycol 3350 17 17 g PO DAILY PRN 12/22/19 12/01/23 gram/dose oral powder naratriptan 2.5 mg tablet 2.5 mg PO BID PRN 03/27/20 12/01/23 estradiol 1 mg tablet See Rx Instructions .Route .COMPLEX 06/10/21 12/01/23 cholecalciferol (vitamin D3) 50 50 mcg PO DAILY 11/21/21 12/01/23 mcg (2,000 unit) capsule metformin 500 mg tablet,extended 1,000 mg PO BID 11/21/21 12/01/23 release 24 hr dulaglutide 1.5 mg/0.5 mL 3 mg subcut QWEEK 12/18/21 12/01/23 subcutaneous pen injector (Trulicity) hydrocortisone 2.5 % topical cream 1 applic topical QID #30 grams 12/31/21 12/01/23 naproxen 250 mg tablet 500 mg PO BID PRN 04/16/22 12/01/23 acetaminophen 500 mg capsule 1,000 mg (2 x 500 mg) PO Q8H PRN 05/13/22 12/01/23 PRN #30 caps lamotrigine 100 mg tablet 100 mg PO HS 09/08/22 12/01/23 (Lamictal) clonazepam 1 mg tablet 1 mg PO BID PRN 11/14/22 12/01/23 melatonin 10 mg tablet 10 mg PO HS PRN 11/14/22 12/01/23 bupropion HCl 150 mg tablet,12 hr 150 mg PO BID 03/03/23 12/01/23 sustained-release (Wellbutrin SR) loratadine 10 mg capsule 10 mg PO DAILY 03/03/23 12/01/23 cyanocobalamin (vitamin B-12) 1,000 mcg PO DAILY 08/13/23 12/01/23 1,000 mcg tablet dapagliflozin propanediol 5 mg 5 mg PO DAILY 08/13/23 12/01/23 tablet (Farxiga) duloxetine 30 mg capsule,delayed 30 mg PO DAILY 08/13/23 12/01/23 release hydromorphone 2 mg tablet 4 mg PO BID 08/13/23 12/01/23 icosapent ethyl 1 gram capsule 2 g PO BID 08/13/23 12/01/23 (Vascepa) pregabalin 100 mg capsule 100 mg PO TID 08/13/23 12/01/23 sacubitril 97 mg-valsartan 103 mg 1 tab PO BID 08/13/23 12/01/23 tablet (Entresto) magnesium oxide 400 mg (241.3 mg 400 mg PO HS #0 tabs 08/17/23 12/01/23 magnesium) tablet metoprolol tartrate 25 mg tablet 12.5 mg (1/2 x 25 mg) PO BID #0 08/17/23 12/01/23 tabs Previous Rx's Medication Instructions Recorded aspirin 81 mg tablet,delayed 81 mg PO DAILY Prevent blood clot 09/30/19 release #14 tabs hydrocortisone 2.5 % topical cream 1 applic topical QID #30 grams 12/31/21 acetaminophen 500 mg capsule 1,000 mg (2 x 500 mg) PO Q8H PRN 05/13/22 PRN #30 caps magnesium oxide 400 mg (241.3 mg 400 mg PO HS #0 tabs 08/17/23 magnesium) tablet metoprolol tartrate 25 mg tablet 12.5 mg (1/2 x 25 mg) PO BID #0 08/17/23 tabs Allergies Allergy/AdvReac Type Severity Reaction Status Date / Time Penicillins Allergy Severe throat Verified 12/01/23 21:57 closes Sulfa (Sulfonamide Allergy Mild Hives Verified 12/01/23 21:57 Antibiotics) lactose AdvReac Diarrhea Verified 12/01/23 21:57 Review of Systems All systems reviewed & are unremarkable except as noted in HPI and below Musculoskeletal Musculoskeletal: Reports back pain and Reports radiating pain into limb Neurologic Neurologic: Reports as per HPI and Reports other (Patient has chronic sensory loss, sensation at baseline, ) PFSH All Active Problems (Updated 12/03/23 @ 00:24 by Cary Griffith NP) Fall (Acute) Lumbar back pain with radiculopathy affecting left lower extremity (Acute) Viral URI (Acute) Intentional benzodiazepine overdose (Acute) Patellofemoral arthritis of left knee (Acute) Pulmonary hypertension (Chronic) Acute respiratory failure with hypoxia (Acute) Pulmonary edema (Acute) Acute respiratory distress (Acute) COVID-19 (Acute) Bilateral carpal tunnel syndrome (Acute) S/P R ECTR: 05/13/2022 Amplified musculoskeletal pain (Acute) Tendonitis of long head of biceps brachii of right shoulder (Acute) Bursitis of right shoulder (Acute) Traumatic tear of right rotator cuff (Acute) Calcific tendinitis of right shoulder (Acute) 40mg depo-medrol injection: 02/11/2022 Lateral epicondylitis of right elbow (Acute) 40mg depo-medrol injection: 02/11/2022 Hematest positive stools (Acute) Cardiomyopathy (Chronic) last echocardiogram 01/27/2019, LVEF 50-55%, no regional wall motion abnormalities, mild LVH, mild MR; normal RV size and function Bipolar disorder (Chronic) 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 (Acute 01/25/14) Atypical chest pain (Acute) Type 2 diabetes mellitus (Chronic) Palpitations (Acute) Spell of altered consciousness (Acute) Elevated brain natriuretic peptide (BNP) level (Acute) Chest pain (Acute) Screening for colon cancer (Acute) Tobacco use (Acute) Fecal occult blood test positive (Acute) Medical History Acute kidney injury Anxiety 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 (01/25/14) Bursitis of left shoulder (~03/2019) CAD (coronary artery disease) mild non-obstructive disease per cardiac cath report from [facility] 09/07/2013, more recent repeat cath unchanged but with pulmonary HTN Carpal tunnel syndrome, left Cervical radiculopathy bilateral Change in mental status Chronic migraine (03/07/15) Chronic pain syndrome Dehydration Depression Diabetes Discharge planning issues Dizziness, nonspecific Dyspnea Elbow fracture, right Fatigue Hyperlipidemia Hyperthyroidism Impingement syndrome of left shoulder (~03/2019) Lactose intolerance Left rotator cuff tear (~03/2019) Medication overuse headache (03/07/15) Migraine headache with aura (03/07/15) Migraine headache without aura (03/07/15) Morbid obesity Myalgia Orthostasis Polycystic ovaries Shortness of breath Splenomegaly Suicidal ideation Tachycardia Tendinitis of long head of biceps brachii of left shoulder (~03/2019) Unresponsive episode Urinary incontinence Surgical History History of arthroscopy of left shoulder History of section x2 History of endometrial ablation Hx of cardiac catheterization 08/2021-no stent placed Previous back surgery S/P hysterectomy Social History Smoking/Tobacco Use Status: Former Tobacco Use Quit status: quit date established Smoking risk assessment performed?: Yes Alcohol Intake: never Drug use: Never Substance use type: does not use Number of Children: 3 Current gender identity: female What is your relationship status?: Panel score (0-1 are the most socially isolated patients): 0 What type of physical activity do you participate in: none Do you feel safe at home: Yes Do you feel safe in your relationship?: Yes Female Reproductive History Menstrual control method: permanent sterilization Exam Narrative Exam Narrative: Constitutional: Alert and oriented x3. Appears stated age. Normal body habitus. Head: Normocephalic, no trauma. Eyes: Pupils PERRL, Red reflex noted, EOM's intact. Eyelids symmetrical without lesions, discharge, or swelling. ENT: Bilateral TM's WNL, External ear normal to inspection, no mastoid TTP, swelling, or erythema, Nasal turbinates WNL, no nasal discharge. Normal dentition, Posterior pharynx WNL, no exudate. Chest: RRR, Normal S1, S2, distal pulses intact. Resp: Lungs clear to auscultation bilaterally, no wheezes, rales, or rhonchi. Abdomen: Soft, non-distended, Normoactive bowel sounds all 4 quads. Musculoskeletal: Guarded, stiff gait, 5/5 strength to all four extremities. Skin: No suspicious rashes or lesions. Capillary refill less than 2 sec. Neurologic: Cranial nerves II-XII intact. Alert and oriented x 3. Motor: No deficits noted. Sensory: Intact bilaterally all 4 extremities. Reflexes: DTR's intact bilaterally.. Intact dorsal and pedal flexion, intact sensation at baseline. Hematologic/Lymphatic: No ecchymosis, no lymphadenopathy. Course Vital Signs Vital signs: Vital Signs Temperature 37.1 C 12/02/23 17:12 Pulse 97 H 12/02/23 17:12 Respiratory Rate 20 12/02/23 17:12 Blood Pressure 131/79 12/02/23 17:12 Pulse Oximetry 99 12/02/23 17:12 Temperature 37.1 C 12/02/23 17:12 Temperature Source Temporal Artery Scan 12/02/23 17:12 Pulse 97 H 12/02/23 17:12 Respiratory Rate 20 12/02/23 17:12 Blood Pressure 131/79 12/02/23 17:12 Blood Pressure Position Supine 12/02/23 17:12 Pulse Oximetry 99 12/02/23 17:12 Oxygen Delivery Method Room Air 12/02/23 17:12 Oxygen Flow Rate 0 12/02/23 17:12 Pain Level 10 12/02/23 17:12 Medical Decision Making 48-year-old female presents to the ER via EMS with a chief complaint of lower ba ck pain status post a fall which occurred today at noon. Patient slipped on ice and did a split while walking her dog she was able to crawl back into her house up 2 flights of stairs and into her bed. She did take naproxen Lyrica after the fall. She did have Dilaudid 4 mg at 8 AM this morning. She is complaining of lower back pain. She denies any saddle anesthesia, she denies any loss of bowel or bladder control. She also reports that the numbness and tingling in her legs has improved with the Lyrica. CT T and L-spine without contrast ordered, IV Tylenol 1 g IV piggyback, and lidocaine patch. I did offer some Dilaudid which patient is normally on she reports that she does not want any narcotics while she is here, she did burst out in tears and states that I just want real care and want help. 1903: Spoke with Dr. Granger radiologist regarding CT T and L-spine he reports no new fractures no listhesis, he does have some advanced disc space narrowing at L5-S1 level, some mild to moderate bilateral foraminal stenosis bilaterally at this level. At this time patient has no signs of cauda equina. She is requesting more pain medication 30 mg of Toradol IV ordered. I will discuss the results with her and family. And do a road challenge. On patient re-evaluation, she is still complaining of muscle spasm and pain however she is reports that her symptoms are better. I did discuss CT results with her and follow-up care and home care. She agrees to have 0.5 of Dilaudid and to go home with Flexeril. Patient got up to the bathroom via wheelchair and assistance of her . Patient is up for discharge. She was discharged to the care of her . Discussed strict return instructions, follow up and home care. This text was generated using [employer] system, please disregard any oddities of phrase or misspellings. Medical Records Medical records reviewed: Yes I reviewed the patient's medical records. Imaging Data Radiologic Study: Imaging: CT Scan Radiologist's impression: FINDINGS: THORACIC SPINAL COLUMN: No fractures nor listhesis. No facet malalignment. No acute compromise of the canal. No osseous lesions. LUMBOSACRAL SPINAL COLUMN: No evidence of acute fracture. No listhesis. Advanced disc space narrowing L5-S1 level and posterior bony ridging evident at this level. Mild canal stenosis at this level as well as mild-moderate bilateral foraminal stenosis. IMPRESSION: No fractures in the thoracolumbar spine. Advanced disc space narrowing at L5-S1 level. There appears to be bilateral mild-moderate foraminal stenosis at this level. Quality:[facility] Health Related Social Needs: No Data to Display Discharge Plan Disposition Patient Disposition: Home Condition: Stable Discharge Details Clinical Impression: Lumbar back pain with radiculopathy affecting left lower extremity, Fall Primary Care Provider: Edie Ellis ED Provider: Cary Griffith Home Meds and New Rx's Prescriptions: Continued naproxen 250 mg tablet 500 mg PO BID PRN Hold Instructions: Hold until PCP f/u clonazepam 1 mg tablet 1 mg PO BID PRN melatonin 10 mg tablet 10 mg PO HS PRN loratadine 10 mg capsule 10 mg PO DAILY bupropion HCl [Wellbutrin SR] 150 mg tablet sustained-release 12 hr 150 mg PO BID cholecalciferol (vitamin D3) 50 mcg (2,000 unit) capsule 50 mcg PO DAILY metformin 500 mg tablet extended release 24 hr 1,000 mg PO BID Trulicity 1.5 mg/0.5 mL pen injector 3 mg subcut QWEEK Hold Instructions: Until f/u with PCP or if blood glucose levels begin to rise Rx Instructions: - on rosuvastatin [Crestor] 5 MG tablet 10 mg PO QPM naratriptan 2.5 mg tablet 2.5 mg PO BID PRN riboflavin (vitamin B2) [Vitamin B-2] 50 MG tablet 200 mg PO BID polyethylene glycol 3350 17 gram/dose Powder 17 g PO DAILY PRN cyanocobalamin (vitamin B-12) 1,000 mcg tablet 1,000 mcg PO DAILY Patient Comments: TAKE ONE TABLET BY MOUTH EVERY DAY duloxetine 30 mg capsule,delayed release(DR/EC) 30 mg PO DAILY Patient Comments: Take 1 capsule by mouth once a day to replace paxil which she will wean off icosapent ethyl [Vascepa] 1 gram capsule 2 g PO BID Patient Comments: TAKE TWO CAPSULES BY MOUTH TWICE A DAY Farxiga 5 mg tablet 5 mg PO DAILY Patient Comments: Take 1 tablet by mouth once a day hydromorphone 2 mg tablet 4 mg PO BID Patient Comments: TAKE TWO TABLETS BY MOUTH TWICE A DAY Entresto 97-103 mg tablet 1 tab PO BID Hold Instructions: Hold until PCP f/u or if SBP is consistently > 120 mmHg Patient Comments: TAKE ONE TABLET BY MOUTH TWICE A DAY pregabalin 100 mg capsule 100 mg PO TID Patient Comments: Take 1 capsule by mouth three times a day metoprolol tartrate 25 mg Tablet 12.5 mg PO BID Qty: 0 0RF magnesium oxide 400 MG tablet 400 mg PO HS Qty: 0 0RF levothyroxine [Synthroid] 25 MCG tablet 50 mcg PO HS omeprazole 20 mg Capsule,Delayed Release(Dr/Ec) 20 mg PO DAILY prochlorperazine maleate 10 mg Tablet 10 mg PO DAILY PRN (Reason: Headache) albuterol sulfate [Ventolin HFA] 90 mcg/actuation Hfa Aerosol Inhaler 2 puff INHALATION QID PRN naloxone [Narcan] 4 mg/actuation [place],Non-Aerosol 1 spray INTRANASAL ONCE PRN Patient Comments: Never used. valacyclovir 1 gram tablet 500 mg PO QHS aspirin 81 mg tablet,delayed release (DR/EC) 81 mg PO DAILY Qty: 14 0RF Rx Instructions: Take 1 daily with a meal for 30 days estradiol 1 mg tablet See Rx Instructions .ROUTE .COMPLEX Patient Comments: TAKE 1 TABLET BY MOUTH EVERY MORNING THEN 2 TABLETS EVERY EVENING Rx Instructions: --> 1mg qAM and 1.5m,g qPM hydrocortisone 2.5 % cream 1 applic topical QID Qty: 30 6RF acetaminophen 500 mg capsule 1,000 mg PO Q8H PRN PRNQty: 30 0RF lamotrigine [Lamictal] 100 mg tablet 100 mg PO HS Patient Comments: TAKE 1 TABLET BY MOUTH EVERY DAY Discharge Instructions Instructions: Low Back Strain (ED), Fall Prevention (ED) Additional Instructions: No acute fractures on the CT scan. You do have some foramin narrowing at the level of your previous surgery. I do not suspect that you have exacerbated previous injury. Which explains the muscle spasm. Please alternate ice and heat. You may take your normal pain medications as directed and per previously prescribed. You were given Flexeril here to take at home. Follow up with primary care provider in 3-5 days. Return to ED sooner if any worsening loss of bowel or bladder control, feeling as if you need to urinate but you cannot, new numbness or tingling in your groin or rectal area or concerns. Increase oral fluids. Please take Tylenol or Ibuprofen with food every 4-6 hours as needed for pain and swelling. Referrals: Edie Ellis MD [Primary Care Provider] - 3 days
[2023-12-02] MEDS: ACETAMINOPHEN 1,000 MG/100 ML BTL 400 MG IVPB (18:18)
[2023-12-02] MEDS: diazePAM 10 MG/2 ML SYR 2.5 MG IVP (18:19)
[2023-12-02] MEDS: Lidocaine 5% Patch 1 PATCH TP (18:20)
[2023-12-02] MEDS: Normal Saline 500 ML IV (18:20)
[2023-12-02] MEDS: Ketorolac 30 MG/ML VIAL IVP (19:08)
[2023-12-02] MEDS: Cyclobenzaprine 10 MG TAB, 3 TABS/BTL PO (19:27)
[2023-12-02] MEDS: HYDROmorphone 2 MG/ML SYR 0.5 MG IVP (19:27)
--- NOTE | 2023-12-02 20:12 | NUR.NOTE ---
PT was assisted to WC to get to BR. Nursing Note:
== END 2023-12-02 20:42 | disposition home or self-care (01) ==
PROVIDERS: Emergency Provider Registered Nurse Emergency; PCP Family Medicine
DX: M54.50 Low back pain, unspecified (principal); M54.16 Radiculopathy, lumbar region; W00.0XXA Fall on same level due to ice and snow, initial encounter; M48.061 Spinal stenosis, lumbar region without neurogenic claudication; Y93.K1 Activity, walking an animal; E11.9 Type 2 diabetes mellitus without complications; E78.5 Hyperlipidemia, unspecified; I25.10 Atherosclerotic heart disease of native coronary artery without angina pectoris; Z72.0 Tobacco use; Z79.84 Long term (current) use of oral hypoglycemic drugs; Z79.899 Other long term (current) drug therapy; Z98.890 Other specified postprocedural states
CPT/HCPCS: 96374; 96375; 99284; 72128; 72131; J0131; J1170; J1885; J3360

== ENCOUNTER 2023-12-31 12:14 | Emergency (ER) | payer MEDICARE, MEDICAID, SELFPAY ==
[2023-12-31 12:21] VITALS: BP 108/81; PULSE 92; RESP 15; TEMP 36.6; O2SAT 98
--- NOTE | 2023-12-31 13:27 | W.ED.GENAD ---
HPI General Mode of arrival: ambulatory. Date/Time Provider Initiated Documentation: 12/31/23 13:00. Limitations to Documentation: no limitations. Information obtained by: patient. History of Present Illness 48 year old F presents to the emergency department with the chief complaint of depression, described as moderate, Patient started experiencing this month(s) (1) and it has been constant. No relieving factors improve symptom(s), No exacerbating factors reported . Patient notes denies chest pain, fever/chills and shortness of breath. Patient did receive the following treatments prior to arrival, none Related Data Home Medications Medication Instructions Recorded Confirmed rosuvastatin 5 mg tablet (Crestor) 10 mg PO QPM 06/28/13 12/31/23 riboflavin (vitamin B2) 50 mg 200 mg PO BID 03/13/15 12/31/23 tablet (Vitamin B-2) levothyroxine 25 mcg tablet 50 mcg PO HS 03/05/17 12/31/23 (Synthroid) albuterol sulfate 90 mcg/actuation 2 puff inhalation QID PRN 03/10/19 12/31/23 aerosol inhaler (Ventolin HFA) naloxone 4 mg/actuation nasal 1 spray intranasal ONCE PRN 03/10/19 12/31/23 spray (Narcan) omeprazole 20 mg capsule,delayed 20 mg PO DAILY 03/10/19 12/31/23 release prochlorperazine maleate 10 mg 10 mg PO DAILY PRN Headache 03/10/19 12/31/23 tablet valacyclovir 1 gram tablet 500 mg PO QHS 03/21/19 12/31/23 aspirin 81 mg tablet,delayed 81 mg PO DAILY Prevent blood clot 09/30/19 12/31/23 release #14 tabs polyethylene glycol 3350 17 17 g PO DAILY PRN 12/22/19 12/31/23 gram/dose oral powder naratriptan 2.5 mg tablet 2.5 mg PO BID PRN 03/27/20 12/31/23 estradiol 1 mg tablet See Rx Instructions .Route .COMPLEX 06/10/21 12/31/23 cholecalciferol (vitamin D3) 50 50 mcg PO DAILY 11/21/21 12/31/23 mcg (2,000 unit) capsule metformin 500 mg tablet,extended 1,000 mg PO BID 11/21/21 12/31/23 release 24 hr dulaglutide 1.5 mg/0.5 mL 3 mg subcut QWEEK 12/18/21 12/31/23 subcutaneous pen injector (Trulicity) hydrocortisone 2.5 % topical cream 1 applic topical QID #30 grams 12/31/21 12/31/23 naproxen 250 mg tablet 500 mg PO BID PRN 04/16/22 12/31/23 acetaminophen 500 mg capsule 1,000 mg (2 x 500 mg) PO Q8H PRN 05/13/22 12/31/23 PRN #30 caps lamotrigine 100 mg tablet 100 mg PO HS 09/08/22 12/31/23 (Lamictal) clonazepam 1 mg tablet 1 mg PO BID PRN 11/14/22 12/31/23 melatonin 10 mg tablet 10 mg PO HS PRN 11/14/22 12/31/23 bupropion HCl 150 mg tablet,12 hr 150 mg PO BID 03/03/23 12/31/23 sustained-release (Wellbutrin SR) loratadine 10 mg capsule 10 mg PO DAILY 03/03/23 12/31/23 cyanocobalamin (vitamin B-12) 1,000 mcg PO DAILY 08/13/23 12/31/23 1,000 mcg tablet dapagliflozin propanediol 5 mg 5 mg PO DAILY 08/13/23 12/31/23 tablet (Farxiga) duloxetine 30 mg capsule,delayed 30 mg PO DAILY 08/13/23 12/31/23 release hydromorphone 2 mg tablet 4 mg PO BID 08/13/23 12/31/23 icosapent ethyl 1 gram capsule 2 g PO BID 08/13/23 12/31/23 (Vascepa) pregabalin 100 mg capsule 100 mg PO TID 08/13/23 12/31/23 sacubitril 97 mg-valsartan 103 mg 1 tab PO BID 08/13/23 12/31/23 tablet (Entresto) magnesium oxide 400 mg (241.3 mg 400 mg PO HS #0 tabs 08/17/23 12/31/23 magnesium) tablet metoprolol tartrate 25 mg tablet 12.5 mg (1/2 x 25 mg) PO BID #0 08/17/23 12/31/23 tabs Previous Rx's Medication Instructions Recorded aspirin 81 mg tablet,delayed 81 mg PO DAILY Prevent blood clot 11/08/19 release #14 tabs hydrocortisone 2.5 % topical cream 1 applic topical QID #30 grams 12/31/21 acetaminophen 500 mg capsule 1,000 mg (2 x 500 mg) PO Q8H PRN 05/13/22 PRN #30 caps magnesium oxide 400 mg (241.3 mg 400 mg PO HS #0 tabs 08/17/23 magnesium) tablet metoprolol tartrate 25 mg tablet 12.5 mg (1/2 x 25 mg) PO BID #0 08/17/23 tabs Allergies Allergy/AdvReac Type Severity Reaction Status Date / Time Penicillins Allergy Severe throat Verified 12/01/23 21:57 closes Sulfa (Sulfonamide Allergy Mild Hives Verified 12/01/23 21:57 Antibiotics) lactose AdvReac Diarrhea Verified 12/01/23 21:57 General Stated Complaint: PsychEval RENATO: 2 Review of Systems All systems reviewed & are unremarkable except as noted in HPI and below Constitutional Constitutional: Denies chills, Denies fever(s) and Denies weakness Cardiovascular Cardiovascular: Denies chest pain and Denies dyspnea Respiratory Respiratory: Denies cough and Denies dyspnea Gastrointestinal Gastrointestinal: Denies abdominal pain, Denies nausea and Denies vomiting Musculoskeletal Musculoskeletal: Denies joint swelling Neurologic Neurologic: Denies weakness Psychiatric Psychiatric: Reports depression Exam Const General: no acute distress Orientation: alert HENNM Head: normal to inspection Ears: external ears normal General nose exam: external nose normal Mouth: moist mucous membranes Eyes General: appearance normal, both eyes and all related structures Neck Neck: normal visual inspection, full ROM and nontender Resp Effort & Inspection: normal respiratory effort and able to speak in complete sentences Cardio Rate: regular rate GI Palpation: soft and nontender Skin General skin exam: no rashes or lesions noted Neuro General: patient alert and patient oriented x3 Extrem General: normal to inspection Psych Attitude: cooperative Course Vital Signs Vital signs: Vital Signs Temperature 36.6 C 12/31/23 12:21 Pulse 92 H 12/31/23 12:21 Respiratory Rate 15 12/31/23 12:21 Blood Pressure 108/81 12/31/23 12:21 Pulse Oximetry 98 12/31/23 12:21 Temperature 36.6 C 12/31/23 12:21 Temperature Source Temporal Artery Scan 12/31/23 12:21 Pulse 92 H 12/31/23 12:21 Respiratory Rate 15 12/31/23 12:21 Respiratory Effort Normal 12/31/23 13:18 Blood Pressure 108/81 12/31/23 12:21 Blood Pressure Position Sitting 12/31/23 12:21 Pulse Oximetry 98 12/31/23 12:21 Oxygen Delivery Method Room Air 12/31/23 12:21 Oxygen Flow Rate 0 12/31/23 12:21 Pain Level 6 12/31/23 12:21 Medical Decision Making 48-year-old female with a history of chronic depression and prior suicidal ideations comes in with worsening depression and suicidal ideations. She states she has been more depressed and then last night actually tried to hang herself,/the rope was too long so she did not actually hang herself. She arrives conscious and alert and oriented x 4 speaking clearly and no signs of distress. She has no signs of trauma to the neck no tenderness speaking clearly and swallowing normally nonfocal neurological exam, denies any attempts at overdosing. Will proceed with lab screening given her suicidal ideation. Given lack of traumatic findings of the neck no bruits no swelling or other concerning findings do not feel any acute imaging of her neck is indicated. Labs unremarkable patient stable, medically cleared to see mental health. Mental health has evaluated her and she will be seeking voluntary placement at this time Differential Diagnosis Differential Diagnosis: depression, si Medical Records Medical records reviewed: Yes I reviewed the patient's medical records. Lab Data Lab results reviewed: Yes I reviewed the patient's lab results. Quality:SDOH Health Related Social Needs: No Data to Display PFSH All Active Problems (Updated 12/31/23 @ 14:26 by Taurus Ricardo MD) Depression (Chronic) Fall (Acute) Lumbar back pain with radiculopathy affecting left lower extremity (Acute) Viral URI (Acute) Intentional benzodiazepine overdose (Acute) Patellofemoral arthritis of left knee (Acute) Pulmonary hypertension (Chronic) Acute respiratory failure with hypoxia (Acute) Pulmonary edema (Acute) Acute respiratory distress (Acute) COVID-19 (Acute) Bilateral carpal tunnel syndrome (Acute) S/P R ECTR: 05/13/2022 Amplified musculoskeletal pain (Acute) Tendonitis of long head of biceps brachii of right shoulder (Acute) Bursitis of right shoulder (Acute) Traumatic tear of right rotator cuff (Acute) Calcific tendinitis of right shoulder (Acute) 40mg depo-medrol injection: 02/11/2022 Lateral epicondylitis of right elbow (Acute) 40mg depo-medrol injection: 02/11/2022 Hematest positive stools (Acute) Cardiomyopathy (Chronic) last echocardiogram 01/27/2019, LVEF 50-55%, no regional wall motion abnormalities, mild LVH, mild MR; normal RV size and function Bipolar disorder (Chronic) 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 (Acute 01/25/14) Atypical chest pain (Acute) Type 2 diabetes mellitus (Chronic) Palpitations (Acute) Spell of altered consciousness (Acute) Elevated brain natriuretic peptide (BNP) level (Acute) Chest pain (Acute) Screening for colon cancer (Acute) Tobacco use (Acute) Fecal occult blood test positive (Acute) Medical History Acute kidney injury Anxiety 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 (01/25/14) Bursitis of left shoulder (~03/2019) CAD (coronary artery disease) mild non-obstructive disease [place] [facility] [place], more recent repeat cath unchanged but with pulmonary HTN Carpal tunnel syndrome, left Cervical radiculopathy bilateral Change in mental status Chronic migraine (03/07/15) Chronic pain syndrome Dehydration Depression Diabetes Discharge planning issues Dizziness, nonspecific Dyspnea Elbow fracture, right Fatigue Hyperlipidemia Hyperthyroidism Impingement syndrome of left shoulder (~03/2019) Lactose intolerance Left rotator cuff tear (~03/2019) Medication overuse headache (03/07/15) Migraine headache with aura (03/07/15) Migraine headache without aura (03/07/15) Morbid obesity Myalgia Orthostasis Polycystic ovaries Shortness of breath Splenomegaly Suicidal ideation Tachycardia Tendinitis of long head of biceps brachii of left shoulder (~03/2019) Unresponsive episode Urinary incontinence Surgical History History of arthroscopy of left shoulder History of section x2 History of endometrial ablation Hx of cardiac catheterization 08/2021-no stent placed Previous back surgery S/P hysterectomy Social History Smoking/Tobacco Use Status: Former Tobacco Use Quit status: quit date established Smoking risk assessment performed?: Yes Alcohol Intake: never Drug use: Never Substance use type: does not use Number of Children: 3 Current gender identity: female What is your relationship status?: Panel score (0-1 are the most socially isolated patients): 0 What type of physical activity do you participate in: none Do you feel safe at home: Yes Do you feel safe in your relationship?: Yes Female Reproductive History Menstrual control method: permanent sterilization Discharge Plan Discharge Details Chief Complaint: PsychEval Clinical Impression: Depression Primary Care Provider: Edie Ellis ED Provider: Taurus Ricardo Hamilton Meds and New Rx's Prescriptions: No Action naproxen 250 mg tablet 500 mg PO BID PRN Hold Instructions: Hold until PCP f/u clonazepam 1 mg tablet 1 mg PO BID PRN melatonin 10 mg tablet 10 mg PO HS PRN loratadine 10 mg capsule 10 mg PO DAILY bupropion HCl [Wellbutrin SR] 150 mg tablet sustained-release 12 hr 150 mg PO BID cholecalciferol (vitamin D3) 50 mcg (2,000 unit) capsule 50 mcg PO DAILY metformin 500 mg tablet extended release 24 hr 1,000 mg PO BID Trulicity 1.5 mg/0.5 mL pen injector 3 mg subcut QWEEK Hold Instructions: Until f/u with PCP or if blood glucose levels begin to rise Rx Instructions: - on rosuvastatin [Crestor] 5 MG tablet 10 mg PO QPM naratriptan 2.5 mg tablet 2.5 mg PO BID PRN riboflavin (vitamin B2) [Vitamin B-2] 50 MG tablet 200 mg PO BID polyethylene glycol 3350 17 gram/dose Powder 17 g PO DAILY PRN cyanocobalamin (vitamin B-12) 1,000 mcg tablet 1,000 mcg PO DAILY Patient Comments: TAKE ONE TABLET BY MOUTH EVERY DAY duloxetine 30 mg capsule,delayed release(DR/EC) 30 mg PO DAILY Patient Comments: Take 1 capsule by mouth once a day to replace paxil which she will wean off icosapent ethyl [Vascepa] 1 gram capsule 2 g PO BID Patient Comments: TAKE TWO CAPSULES BY MOUTH TWICE A DAY Farxiga 5 mg tablet 5 mg PO DAILY Patient Comments: Take 1 tablet by mouth once a day hydromorphone 2 mg tablet 4 mg PO BID Patient Comments: TAKE TWO TABLETS BY MOUTH TWICE A DAY Entresto 97-103 mg tablet 1 tab PO BID Hold Instructions: Hold until PCP f/u or if SBP is consistently > 120 mmHg Patient Comments: TAKE ONE TABLET BY MOUTH TWICE A DAY pregabalin 100 mg capsule 100 mg PO TID Patient Comments: Take 1 capsule by mouth three times a day metoprolol tartrate 25 mg Tablet 12.5 mg PO BID Qty: 0 0RF magnesium oxide 400 MG tablet 400 mg PO HS Qty: 0 0RF levothyroxine [Synthroid] 25 MCG tablet 50 mcg PO HS omeprazole 20 mg Capsule,Delayed Release(Dr/Ec) 20 mg PO DAILY prochlorperazine maleate 10 mg Tablet 10 mg PO DAILY PRN (Reason: Headache) albuterol sulfate [Ventolin HFA] 90 mcg/actuation Hfa Aerosol Inhaler 2 puff INHALATION QID PRN naloxone [Narcan] 4 mg/actuation [place],Non-Aerosol 1 spray INTRANASAL ONCE PRN Patient Comments: Never used. valacyclovir 1 gram tablet 500 mg PO QHS aspirin 81 mg tablet,delayed release (DR/EC) 81 mg PO DAILY Qty: 14 0RF Rx Instructions: Take 1 daily with a meal for 30 days estradiol 1 mg tablet See Rx Instructions .ROUTE .COMPLEX Patient Comments: TAKE 1 TABLET BY MOUTH EVERY MORNING THEN 2 TABLETS EVERY EVENING Rx Instructions: --> 1mg qAM and 1.5m,g qPM hydrocortisone 2.5 % cream 1 applic topical QID Qty: 30 6RF acetaminophen 500 mg capsule 1,000 mg PO Q8H PRN PRNQty: 30 0RF lamotrigine [Lamictal] 100 mg tablet 100 mg PO HS Patient Comments: TAKE 1 TABLET BY MOUTH EVERY DAY
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
[2023-12-31 13:57] LABS: Abs Immature Grans 0.01 10^3/uL (0.0-0.06); Absolute Basophil Count 0.07 10^3/uL (0.0-0.2); Absolute Eosinophil Count 0.14 10^3/uL (0.0-0.7); Absolute Lymphocyte Count 3.21 10^3/uL (1.2-3.4); Absolute Monocyte Count 0.39 10^3/uL (0.1-0.8); Absolute Neutrophil Count 3.09 10^3/uL (1.2-6.7); HCT 44.5 % (36.0-46.0); HGB 15.1 g/dL (11.2-15.7); Immature Grans % 0.1; Lymphocytes % 46.5; MCH 30.1 pg (27.0-33.0); MCHC 33.9 % (32.0-36.0); MCV 89 fL (80-95); MPV 9.6 fL (8.0-11.0); Monocytes % 5.6; Neutrophils % 44.8; Platelet Count 235 10^3/uL (130-400); RBC 5.01 10^6/uL (3.93-5.22); RDW 13.6 % (11.7-14.6); WBC 6.91 10^3/uL (4.4-10.8)
[2023-12-31 14:21] LABS: ALT 23 U/L (14-59); AST 21 U/L (15-37); Albumin 3.5 g/dL (3.4-5.0); Alkaline Phosphatase 42 U/L (46-116); BUN 13 mg/dL (7-18); Bilirubin, Total 0.4 mg/dL (0.2-1.0); CREATININE 0.6 mg/dL (0.55-1.02); Calcium 9.1 mg/dL (8.5-10.1); Chloride 101 mmol/L (98-107); Estimated GFR 110.65 (mL/min/1.73m2); Glucose 133 mg/dL (74-106); Potassium 4.2 mmol/L (3.5-5.1); Sodium 139 mmol/L (136-145); TSH (W/Ref FT4) 1.05 uIU/mL (0.36-3.74); Total Protein 7.1 g/dL (6.4-8.2)
[2023-12-31 14:22] LABS: ETHANOL BLOOD < 3.0 mg/dL (<10)
[2023-12-31 14:25] LABS: Acetaminophen < 2 ug/mL (10-30)
--- NOTE | 2023-12-31 16:23 | NUR.NOTE ---
and son in to visit with pt Nursing Note:
--- NOTE | 2023-12-31 19:21 | CMSP_ITS ---
Date of service: 12/31/23 Time of Service: 19:21 Care Management Safety Plan Status Status: Voluntary Reason for Wait Reason for Wait: Inpatient Admission Safety Plan Safety Plan: Per report, Jammie is voluntary, awaiting admission for inpatient psychiatric stabilization. She reported that she attempted to end her life by hanging yesterday, but was unsuccessful. She was screened by [facility] at their [facility] office, and due to her acuity, she was brought to [facility] for inpatient admission. Referrals were placed with all facilities in [place], and are pending review. CM will continue to follow. VOLUNTARY FOR INPATIENT PSYCHIATRIC STABILIZATION.? Patient is appropriate in all interactions since arriving at [facility]; Pt has demonstrated appropriate coping and communication skills, has articulated his or her needs and concerns and is fully engaged during staff interactions. Safety plan has been established with patient, and care team, to adhere to patient goals, identify restrictions based on behavioral status, address nutrition, and determine allowed personal belongings, tools for hygiene and personal care. Determine level of activity including ambulation, level of supervision, visitors, and determine privileges based on behaviors and level of engagement by pt. SAFETY PLAN: 1. Will remain on suicide precautions, in paper clothes 2. Will remain in Zone B under direct supervision of one-on-one staff at all times provided by [employer]; YOSELIN, [employer]AMPING [employer]IE MAKER actor understudy. 3. May have paper cups, plates, finger foods as well as a cardboard spoon with which to eat meals. 4. Follow [facility] Management of the Admitted Behavioral Health Patient policy. 5. Shower available in Zone B without restriction. 6. Personal belongings-soft items permitted at RN discretion. 7. Visitors- at RN discretion. 8. Activities: soft cart items approved per RN discretion. 9.? Bathroom available in Zone B without restriction. 10. Phone: limited to [facility] cordless phone at RN discretion. Due to VOLUNTARY status, if patient wishes to leave [facility], staff will contact [facility] Crisis Screener ([phone]) and On-Call Transformation Consultant ([phone]) as soon as possible. In the event of elopement, notify [facility] Police ([phone]). Patient is currently voluntarily at [facility] and seeking inpatient admission when a bed becomes available. [facility] Frontline Meat Seafood Associate will continue seeking place ment. Please contact the Service Line Bus Cleaner Transformation Consultant ([phone]) and [facility] Meat Seafood Associate ([phone]) for any needed changes in the Safety Plan. Safety plan has been provided to interdepartmental care team.
--- NOTE | 2023-12-31 19:21 | PDOC.CMSAFE ---
Date of service: 12/31/23 Time of Service: 19:21 Care Management Safety Plan Status Status: Voluntary Reason for Wait Reason for Wait: Inpatient Admission Safety Plan Safety Plan: Per report, Jammie is voluntary, awaiting admission for inpatient psychiatric stabilization. She reported that she attempted to end her life by hanging yesterday, but was unsuccessful. She was screened by [facility] at their [facility] office, and due to her acuity, she was brought to [facility] for inpatient admission. Referrals were placed with all facilities in [place], and are pending review. CM will continue to follow. VOLUNTARY FOR INPATIENT PSYCHIATRIC STABILIZATION.? Patient is appropriate in all interactions since arriving at [facility]; Pt has demonstrated appropriate coping and communication skills, has articulated his or her needs and concerns and is fully engaged during staff interactions. Safety plan has been established with patient, and care team, to adhere to patient goals, identify restrictions based on behavioral status, address nutrition, and determine allowed personal belongings, tools for hygiene and personal care. Determine level of activity including ambulation, level of supervision, visitors, and determine privileges based on behaviors and level of engagement by pt. SAFETY PLAN: 1. Will remain on suicide precautions, in paper clothes 2. Will remain in Zone B under direct supervision of one-on-one staff at all times provided by [employer]; [employer], MANAGER STRATE[employer]IC MARKETING customer relations advisor. 3. May have paper cups, plates, finger foods as well as a cardboard spoon with which to eat meals. 4. Follow [facility] Management of the Admitted Behavioral Health Patient policy. 5. Shower available in Zone B without restriction. 6. Personal belongings-soft items permitted at RN discretion. 7. Visitors- at RN discretion. 8. Activities: soft cart items approved per RN discretion. 9.? Bathroom available in Zone B without restriction. 10. Phone: limited to [facility] cordless phone at RN discretion. Due to VOLUNTARY status, if patient wishes to leave [facility], staff will contact [facility] Crisis Screener ([phone]) and On-Call Interior Wall Assembler ([phone]) as soon as possible. In the event of elopement, notify [facility] Police ([phone]). Patient is currently voluntarily at [facility] and seeking inpatient admission when a bed becomes available. [facility] Frontline Fur Repairer will continue seeking placement. Please contact the Boat Builder Interior Wall Assembler ([phone]) and [facility] Fur Repairer ([phone]) for any needed changes in the Safety Plan. Safety plan has been provided to interdepartmental care team.
[2023-12-31] MEDS: clonazePAM 1 MG TAB PO (20:25)
[2023-12-31] MEDS: metFORMIN C.R. 500 MG TABCR PO (20:25)
[2023-12-31] MEDS: buPROPion-CR 150 MG TABCR PO (20:25)
[2023-12-31] MEDS: Sacubitril/Valsartan 24 mg/26 mg TAB 1 EACH PO (20:26)
[2023-12-31] MEDS: Metoprolol 25 MG TAB 12.5 MG PO (20:26)
[2023-12-31] MEDS: Pregabalin 100 MG CAP PO (20:26)
[2023-12-31] MEDS: Rosuvastatin 10 MG TAB PO (20:26)
[2024-01-01] MEDS: Aspirin 81 MG CHEW PO (08:16)
[2024-01-01] MEDS: clonazePAM 0.5 MG TAB 1 MG PO (08:17)
[2024-01-01] MEDS: Loratidine 10 MG TAB PO (08:17)
[2024-01-01] MEDS: Metoprolol 25 MG TAB 12.5 MG PO (08:18)
[2024-01-01] MEDS: Omeprazole 20 MG CAPCR PO (08:18)
[2024-01-01] MEDS: metFORMIN C.R. 500 MG TABCR PO (08:18)
[2024-01-01] MEDS: buPROPion-CR 150 MG TABCR PO (08:51)
[2024-01-01] MEDS: DULoxetine 30 MG CAP PO (08:52)
[2024-01-01] MEDS: Pregabalin 100 MG CAP PO ×2 (08:52→14:18)
[2024-01-01] MEDS: Sacubitril/Valsartan 24 mg/26 mg TAB 1 EACH PO (08:53)
[2024-01-01 09:13] VITALS: BP 100/71; PULSE 78; RESP 16; TEMP 35.9; O2SAT 100
[2024-01-01 10:43] LABS: Bilirubin Negative (Negative); Blood Negative (Negative); Clarity Clear (Clear); Glucose >=1000 mg/dL (Negative); Ketones Negative (Negative); Leukocyte Esterase Negative (Negative); Nitrite Negative (Negative); Specific Gravity 1.015 (1.005-1.025); pH 6.5 (5-8)
[2024-01-01 10:52] LABS: *AMPHETAMINES SCREEN URINE Negative (Negative); *BARBITURATES SCREEN URINE Negative (Negative); *BENZODIAZEPINES SCREEN URINE Negative (Negative); Cannabinoids THC Negative (Negative); Cocaine Screen,Urine Negative (Negative); METHADONE URINE SCREEN Negative (Negative); OPIATES URINE SCREEN Negative (Negative)
[2024-01-01 11:02] LABS: Tricyclic Antidepressants Negative (Negative)
--- NOTE | 2024-01-01 13:15 | W.EDPROG ---
Date of service: 01/01/24 Time of Service: 13:15 Medical Decision Making Patient resting actively no acute distress. Patient has been accepted by Dr. Tellez at [place] for inpatient treatment. Physician to physician sign off given between myself and Dr. Caldwell. Bed is available patient awaiting transport Quality:[facility] Health Related Social Needs: No Data to Display Sign Out Sign Out Data: Sign Out Comment: voluntary for si, calm and cooperative Last updated by Taurus Ricardo MD at 12/31/23 15:57 Sign Out Comment: voluntary for si, awaiting reeval for placement Last updated by Kolby Carter MD at 12/31/23 22:12 Sign Out Comment: Voluntary for SI, waiting placement. Stable throughout the night. No interventions needed. Last updated by Edin Taylor DO at 01/01/24 05:12 Discharge Plan Disposition Patient Disposition: Psychiatric Hospital/Unit Specific Psychiatric Facility: [facility] Medical-Psychiatric Unit Condition: Stable Discharge Details Chief Complaint: PsychEval Clinical Impression: Depression Primary Care Provider: Edie Ellis ED Provider: Kolby Carter Home Meds and New Rx's Prescriptions: No Action naproxen 250 mg tablet 500 mg PO BID PRN Hold Instructions: Hold until PCP f/u clonazepam 1 mg tablet 1 mg PO BID PRN melatonin 10 mg tablet 10 mg PO HS PRN loratadine 10 mg capsule 10 mg PO DAILY bupropion HCl [Wellbutrin SR] 150 mg tablet sustained-release 12 hr 150 mg PO BID cholecalciferol (vitamin D3) 50 mcg (2,000 unit) capsule 50 mcg PO DAILY metformin 500 mg tablet extended release 24 hr 1,000 mg PO BID Trulicity 1.5 mg/0.5 mL pen injector 3 mg subcut QWEEK Hold Instructions: Until f/u with PCP or if blood glucose levels begin to rise Rx Instructions: - on rosuvastatin [Crestor] 5 MG tablet 10 mg PO QPM naratriptan 2.5 mg tablet 2.5 mg PO BID PRN riboflavin (vitamin B2) [Vitamin B-2] 50 MG tablet 200 mg PO BID polyethylene glycol 3350 17 gram/dose Powder 17 g PO DAILY PRN cyanocobalamin (vitamin B-12) 1,000 mcg tablet 1,000 mcg PO DAILY Patient Comments: TAKE ONE TABLET BY MOUTH EVERY DAY duloxetine 30 mg capsule,delayed release(DR/EC) 30 mg PO DAILY Patient Comments: Take 1 capsule by mouth once a day to replace paxil which she will wean off icosapent ethyl [Vascepa] 1 gram capsule 2 g PO BID Patient Comments: TAKE TWO CAPSULES BY MOUTH TWICE A DAY Farxiga 5 mg tablet 5 mg PO DAILY Patient Comments: Take 1 tablet by mouth once a day hydromorphone 2 mg tablet 4 mg PO BID Patient Comments: TAKE TWO TABLETS BY MOUTH TWICE A DAY Entresto 97-103 mg tablet 1 tab PO BID Hold Instructions: Hold until PCP f/u or if SBP is consistently > 120 mmHg Patient Comments: TAKE ONE TABLET BY MOUTH TWICE A DAY pregabalin 100 mg capsule 100 mg PO TID Patient Comments: Take 1 capsule by mouth three times a day metoprolol tartrate 25 mg Tablet 12.5 mg PO BID Qty: 0 0RF magnesium oxide 400 MG tablet 400 mg PO HS Qty: 0 0RF levothyroxine [Synthroid] 25 MCG tablet 50 mcg PO HS omeprazole 20 mg Capsule,Delayed Release(Dr/Ec) 20 mg PO DAILY prochlorperazine maleate 10 mg Tablet 10 mg PO DAILY PRN (Reason: Headache) albuterol sulfate [Ventolin HFA] 90 mcg/actuation Hfa Aerosol Inhaler 2 puff INHALATION QID PRN naloxone [Narcan] 4 mg/actuation [place],Non-Aerosol 1 spray INTRANASAL ONCE PRN Patient Comments: Never used. valacyclovir 1 gram tablet 500 mg PO QHS aspirin 81 mg tablet,delayed release (DR/EC) 81 mg PO DAILY Qty: 14 0RF Rx Instructions: Take 1 daily with a meal for 30 days estradiol 1 mg tablet See Rx Instructions .ROUTE .COMPLEX Patient Comments: TAKE 1 TABLET BY MOUTH EVERY MORNING THEN 2 TABLETS EVERY EVENING Rx Instructions: --> 1mg qAM and 1.5m,g qPM hydrocortisone 2.5 % cream 1 applic topical QID Qty: 30 6RF acetaminophen 500 mg capsule 1,000 mg PO Q8H PRN PRNQty: 30 0RF lamotrigine [Lamictal] 100 mg tablet 100 mg PO HS Patient Comments: TAKE 1 TABLET BY MOUTH EVERY DAY
[2024-01-01 14:22] VITALS: BP 100/71; PULSE 78; RESP 16; TEMP 35.9; O2SAT 100
--- NOTE | 2024-01-01 15:41 | PDOC.CMPRO ---
Date of service: 01/01/24 Time of Service: 15:41 Care Management Progress Note Progress Note Text Progress Note Text: Jammie was transferred to [place] via [facility] for voluntary psychiatric admission. SDOH(Care Management) Screening Will the Patient Participate in the Screening?: Unable to obtain
== END 2024-01-01 14:20 ==
PROVIDERS: Emergency Medicine; Emergency Provider Emergency Medicine; PCP Family Medicine
DX: R45.851 Suicidal ideations (principal); F32.A Depression, unspecified; I25.10 Atherosclerotic heart disease of native coronary artery without angina pectoris; E11.9 Type 2 diabetes mellitus without complications; Z79.82 Long term (current) use of aspirin; Z79.84 Long term (current) use of oral hypoglycemic drugs; Z87.891 Personal history of nicotine dependence
CPT/HCPCS: 00123; 80053; 80307; 99285; 80320; 80329; 81003; 84443; 85025

== ENCOUNTER 2024-01-07 12:54 | Emergency (ER) | payer MEDICARE, MEDICAID, SELFPAY ==
[2024-01-07 12:59] VITALS: BP 116/72; PULSE 112; RESP 18; TEMP 36.4; O2SAT 94
--- NOTE | 2024-01-07 13:55 | NUR.NOTE ---
Sitter at bedside for SI
--- NOTE | 2024-01-07 13:59 | ED.GENADUL_ITS ---
HPI General Mode of arrival: ambulatory . Date/Time Provider Initiated Documentation: 01/07/24 13:26 . Limitations to Documentation: no limitations . Information obtained by: patient . HPI Narrative: 48-year-old female with history of depression presents voluntarily for suicidal ideation. Patient was seen here and evaluated for suicidal ideation on 12/31/2023. She was transferred to [facility] for ongoing psychiatric treatment. She notes the care she was receiving at [facility] was excellent but that she had to leave given concerns about her daughter's wellbeing. Her daughter suffers from psychiatric illness herself and the patient felt that she was in need while she was away. Patient states that since she left the hospital she has had continued depression and recently had thoughts of jumping off of her roof or slitting her wrist. Depression is severe. Patient is requesting to be transferred back to [facility] if possible but understands that if this is not possible she is willing to receive treatment at another facility. Patient does have complex medical history including hypertrophic cardiomyopathy. No active medical concerns at this time. Related Data Home Medications Medication Instructions Recorded Confirmed rosuvastatin 5 mg tablet (Crestor) 10 mg PO QPM 06/28/13 01/07/24 riboflavin (vitamin B2) 50 mg 200 mg PO BID 03/13/15 01/07/24 tablet (Vitamin B-2) levothyroxine 25 mcg tablet 50 mcg PO HS 03/05/17 01/07/24 (Synthroid) albuterol sulfate 90 mcg/actuation 2 puff inhalation QID PRN 03/10/19 01/07/24 aerosol inhaler (Ventolin HFA) naloxone 4 mg/actuation nasal 1 spray intranasal ONCE PRN 03/10/19 01/07/24 spray (Narcan) omeprazole 20 mg capsule,delayed 20 mg PO DAILY 03/10/19 01/07/24 release prochlorperazine maleate 10 mg 10 mg PO DAILY PRN Headache 03/10/19 01/07/24 tablet valacyclovir 1 gram tablet 500 mg PO QHS 03/21/19 01/07/24 aspirin 81 mg tablet,delayed 81 mg PO DAILY Prevent blood clot 09/30/19 01/07/24 release #14 tabs polyethylene glycol 3350 17 17 g PO DAILY PRN 12/22/19 01/07/24 gram/dose oral powder naratriptan 2.5 mg tablet 2.5 mg PO BID PRN 03/27/20 01/07/24 estradiol 1 mg tablet See Rx Instructions .Route .COMPLEX 06/10/21 01/07/24 cholecalciferol (vitamin D3) 50 50 mcg PO DAILY 11/21/21 01/07/24 mcg (2,000 unit) capsule metformin 500 mg tablet,extended 1,000 mg PO BID 11/21/21 01/07/24 release 24 hr dulaglutide 1.5 mg/0.5 mL 3 mg subcut QWEEK 12/18/21 01/07/24 subcutaneous pen injector (Trulicity) hydrocortisone 2.5 % topical cream 1 applic topical QID #30 grams 12/31/21 01/07/24 naproxen 250 mg tablet 500 mg PO BID PRN 04/16/22 01/07/24 acetaminophen 500 mg capsule 1,000 mg (2 x 500 mg) PO Q8H PRN 05/13/22 01/07/24 PRN #30 caps lamotrigine 100 mg tablet 150 mg PO HS 09/08/22 01/07/24 (Lamictal) clonazepam 1 mg tablet 1 mg PO BID PRN 11/14/22 01/07/24 melatonin 10 mg tablet 10 mg PO HS PRN 11/14/22 01/07/24 bupropion HCl 150 mg tablet,12 hr 150 mg PO BID 03/03/23 01/07/24 sustained-release (Wellbutrin SR) loratadine 10 mg capsule 10 mg PO DAILY 03/03/23 01/07/24 cyanocobalamin (vitamin B-12) 1,000 mcg PO DAILY 08/13/23 01/07/24 1,000 mcg tablet dapagliflozin propanediol 5 mg 5 mg PO DAILY 08/13/23 01/07/24 tablet (Farxiga) duloxetine 30 mg capsule,delayed 30 mg PO DAILY 08/13/23 01/07/24 release hydromorphone 2 mg tablet 4 mg PO BID 08/13/23 01/07/24 icosapent ethyl 1 gram capsule 2 g PO BID 08/13/23 01/07/24 (Vascepa) pregabalin 100 mg capsule 100 mg PO TID 08/13/23 01/07/24 sacubitril 97 mg-valsartan 103 mg 1 tab PO BID 08/13/23 01/07/24 tablet (Entresto) magnesium oxide 400 mg (241.3 mg 400 mg PO HS #0 tabs 08/17/23 01/07/24 magnesium) tablet metoprolol tartrate 25 mg tablet 12.5 mg (1/2 x 25 mg) PO BID #0 08/17/23 01/07/24 tabs bupropion HCl 150 mg 24 hr tablet, 150 mg PO BID 01/07/24 01/07/24 extended release Previous Rx's Medication Instructions Recorded aspirin 81 mg tablet,delayed 81 mg PO DAILY Prevent blood clot 09/30/19 release #14 tabs hydrocortisone 2.5 % topical cream 1 applic topical QID #30 grams 12/31/21 acetaminophen 500 mg capsule 1,000 mg (2 x 500 mg) PO Q8H PRN 05/13/22 PRN #30 caps magnesium oxide 400 mg (241.3 mg 400 mg PO HS #0 tabs 08/17/23 magnesium) tablet metoprolol tartrate 25 mg tablet 12.5 mg (1/2 x 25 mg) PO BID #0 08/17/23 tabs Allergies Allergy/AdvReac Type Severity Reaction Status Date / Time Penicillins Allergy Severe throat Verified 01/07/24 13:02 closes Sulfa (Sulfonamide Allergy Mild Hives Verified 01/07/24 13:02 Antibiotics) lactose AdvReac Diarrhea Verified 01/07/24 13:02 General Stated Complaint: PsychEval RENATO: 2 Review of Systems All systems reviewed & are unremarkable except as noted in HPI and below Psychiatric Psychiatric: Reports as per HPI Comments: Chronic low back pain Exam Const General: cooperative Orientation: alert and awake HENMT Mouth: moist mucous membranes Eyes Conjunctivae: normal conjunctivae Sclera: normal sclerae Neck Neck: trachea midline and supple Resp Auscultation: clear to auscultation bilaterally, no rales, no rhonchi and no wheezes Cardio Rate: regular rate and tachycardic Rhythm: regular rhythm GI Palpation: soft, not firm, no guarding, no masses, not rigid and nontender Skin General skin exam: no rashes or lesions noted Neuro General: patient alert, patient awake, patient oriented x3 and tone normal Extrem General: no edema Psych Appearance: grossly normal Mental Status: mental status grossly normal and other (depressed) Mood: anxious mood and other (depressed) Affect: sad and blunted Attitude: cooperative Thought Process: normal Thought Content: suicidality Insight: insight good Course Vital Signs Vital signs: Vital Signs Temperature 36.4 C L 01/07/24 12:59 Pulse 112 H 01/07/24 12:59 Respiratory Rate 18 01/07/24 12:59 Blood Pressure 116/72 01/07/24 12:59 Pulse Oximetry 94 01/07/24 12:59 Temperature 36.4 C L 01/07/24 12:59 Temperature Source Tympanic 01/07/24 12:59 Pulse 112 H 01/07/24 12:59 Respiratory Rate 18 01/07/24 12:59 Respiratory Effort Normal, Non-Labored 01/07/24 13:07 Blood Pressure 116/72 01/07/24 12:59 Pulse Oximetry 94 01/07/24 12:59 Oxygen Delivery Method Room Air 01/07/24 12:59 Oxygen Flow Rate 0 01/07/24 12:59 Medical Decision Making 1404 -- 48-year-old female with history of depression, recently hospitalized for suicidal ideation, left prior to completing treatment to care for her daughter, returns now with persistent and worsening suicidality, here voluntarily requesting inpatient treatment. Patient is tachycardic which I suspect is secondary to her anxiety. Diagnostic labs sent as part of medical screening. -- Medical screening exam was performed and no acute medical condition was identified. Patient seen by crisis screener and plan will be for inpatient psychiatric treatment. Lab Data Lab results reviewed: Yes I reviewed the patient's lab results. Labs: Laboratory Tests Range/Units 01/07/24 01/07/24 13:13 13:22 WBC (4.4-10.8) 10^3/uL 8.49 RBC (3.93-5.22) 10^6/uL 5.20 Hgb (11.2-15.7) g/dL 15.6 Hct (36.0-46.0) % 47.1 H MCV (80-95) fL 91 MCH (27.0-33.0) pg 30.0 MCHC (32.0-36.0) % 33.1 RDW (11.7-14.6) % 13.2 Plt Count (130-400) 10^3/uL 251 MPV (8.0-11.0) fL 10.4 Immature Gran % 0.1 Neutrophils % 47.4 Lymphocytes % 43.5 Monocytes % 5.5 Eosinophils % 2.7 Basophils % 0.8 Nucleated RBC % (0.0-0.3) % 0.0 Absolute Neutrophils (1.2-6.7) 10^3/uL 4.02 Absolute Lymphocytes (1.2-3.4) 10^3/uL 3.69 H Absolute Monocytes (0.1-0.8) 10^3/uL 0.47 Absolute Eosinophils (0.0-0.7) 10^3/uL 0.23 Absolute Basophils (0.0-0.2) 10^3/uL 0.07 Sodium (136-145) mmol/L 142 Potassium (3.5-5.1) mmol/L 3.9 Chloride (98-107) mmol/L 103 Carbon Dioxide (21.0-32.0) mmol/L 28.6 Anion Gap (3-11) mmol/L 10.4 BUN (7-18) mg/dL 12 Creatinine (0.55-1.02) mg/dL 0.8 Est GFR (CKD-EPI 2020) (mL/min/1.73m2) 90.83 Glucose (74-106) mg/dL 114 H Calcium (8.5-10.1) mg/dL 9.3 Total Bilirubin (0.2-1.0) mg/dL 0.6 AST (15-37) U/L 18 ALT (14-59) U/L 28 Alkaline Phosphatase (46-116) U/L 52 Total Protein (6.4-8.2) g/dL 7.6 Albumin (3.4-5.0) g/dL 4.0 TSH (0.36-3.74) uIU/mL 1.76 Urine Color (Yellow) Dark Yellow Urine Clarity (Clear) Clear Urine pH (5-8) 5.5 Ur Specific [place] (1.005-1.025) >= 1.030 H Urine Protein (Neg-Trace) mg/dL 30 H Urine Ketones (Negative) mg/dL 15 H Urine Blood (Negative) Negative Urine Nitrite (Negative) Negative Urine Bilirubin (Negative) Small H Urine Urobilinogen (Up to 0.2) mg/dL 1.0 H Ur Leukocyte Esterase (Negative) Negative Urine RBC (0-2) HPF Negative Urine WBC (0-5) HPF Negative Ur Epithelial Cells (Negative) HPF Moderate Urine Crystals (Negative) HPF Negative Urine Bacteria (Negative) HPF Rare Urine Casts (Negative) LPF 10-20 Hyaline Urine Mucus (Negative) Moderate Ur Culture Indicated? No Urine Glucose (Negative) mg/dL 500 H Salicylates (<2.8) mg/dL < 2.8 Acetaminophen (10-30) ug/mL < 2 Ethyl Alcohol (<10) mg/dL < 3.0 Quality:SDOH Health Related Social Needs: No Data to Display PFSH All Active Problems (Updated 01/02/24 @ 00:01 by SHARMAINE ECHOLS) Depression (Chronic) Intentional benzodiazepine overdose (Acute) Patellofemoral arthritis of left knee (Acute) Pulmonary hypertension (Chronic) Acute respiratory failure with hypoxia (Acute) Pulmonary edema (Acute) Acute respiratory distress (Acute) COVID-19 (Acute) Bilateral carpal tunnel syndrome (Acute) S/P R ECTR: 05/13/2022 Amplified musculoskeletal pain (Acute) Tendonitis of long head of biceps brachii of right shoulder (Acute) Bursitis of right shoulder (Acute) Traumatic tear of right rotator cuff (Acute) Calcific tendinitis of right shoulder (Acute) 40mg depo-medrol injection: 02/11/2022 Lateral epicondylitis of right elbow (Acute) 40mg depo-medrol injection: 02/11/2022 Hematest positive stools (Acute) Cardiomyopathy (Chronic) last echocardiogram 01/27/2019, LVEF 50-55%, no regional wall motion abnormalities, mild LVH, mild MR; normal RV size and function Bipolar disorder (Chronic) 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 (Acute 01/25/14) Atypical chest pain (Acute) Type 2 diabetes mellitus (Chronic) Palpitations (Acute) Spell of altered consciousness (Acute) Elevated brain natriuretic peptide (BNP) level (Acute) Chest pain (Acute) Screening for colon cancer (Acute) Tobacco use (Acute) Fecal occult blood test positive (Acute) Medical History Acute kidney injury Anxiety 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 (01/25/14) Bursitis of left shoulder (~03/2019) CAD (coronary artery disease) mild non-obstructive disease [place] cardiac [place] [facility] [place], more recent repeat cath unchanged but with pulmonary HTN Carpal tunnel syndrome, left Cervical radiculopathy bilateral Change in mental status Chronic migraine (03/07/15) Chronic pain syndrome Dehydration Depression Diabetes Discharge planning issues Dizziness, nonspecific Dyspnea Elbow fracture, right Fatigue Hyperlipidemia Hyperthyroidism Impingement syndrome of left shoulder (~03/2019) Lactose intolerance Left rotator cuff tear (~03/2019) Medication overuse headache (03/07/15) Migraine headache with aura (03/07/15) Migraine headache without aura (03/07/15) Morbid obesity Myalgia Orthostasis Polycystic ovaries Shortness of breath Splenomegaly Suicidal ideation Tachycardia Tendinitis of long head of biceps brachii of left shoulder (~03/2019) Unresponsive episode Urinary incontinence Surgical History History of arthroscopy of left shoulder History of section x2 History of endometrial ablation Hx of cardiac catheterization 08/2021-no stent placed Previous back surgery S/P hysterectomy Social History Smoking/Tobacco Use Status: Former Tobacco Use Quit status: quit date established Smoking risk assessment performed?: Yes Alcohol Intake: never Drug use: Never Substance use type: does not use Number of Children: 3 Current gender identity: female What is your relationship status?: Panel score (0-1 are the most socially isolated patients): 0 What type of physical activity do you participate in: none Do you feel safe at home: Yes Do you feel safe in your relationship?: Yes Female Reproductive History Menstrual control method: permanent sterilization Discharge Plan Discharge Details Chief Complaint: PsychEval Primary Care Provider: Edie Ellis ED Provider: Cisco French Home Meds and New Rx's Prescriptions: No Action naproxen 250 mg tablet 500 mg PO BID PRN Hold Instructions: Hold until PCP f/u clonazepam 1 mg tablet 1 mg PO BID PRN melatonin 10 mg tablet 10 mg PO HS PRN loratadine 10 mg capsule 10 mg PO DAILY bupropion HCl [Wellbutrin SR] 150 mg tablet sustained-release 12 hr 150 mg PO BID cholecalciferol (vitamin D3) 50 mcg (2,000 unit) capsule 50 mcg PO DAILY metformin 500 mg tablet extended release 24 hr 1,000 mg PO BID Trulicity 1.5 mg/0.5 mL pen injector 3 mg subcut QWEEK Hold Instructions: Until f/u with PCP or if blood glucose levels begin to rise Rx Instructions: - on rosuvastatin [Crestor] 5 MG tablet 10 mg PO QPM naratriptan 2.5 mg tablet 2.5 mg PO BID PRN riboflavin (vitamin B2) [Vitamin B-2] 50 MG tablet 200 mg PO BID polyethylene glycol 3350 17 gram/dose Powder 17 g PO DAILY PRN cyanocobalamin (vitamin B-12) 1,000 mcg tablet 1,000 mcg PO DAILY Patient Comments: TAKE ONE TABLET BY MOUTH EVERY DAY duloxetine 30 mg capsule,delayed release(DR/EC) 30 mg PO DAILY Patient Comments: Take 1 capsule by mouth once a day to replace paxil which she will wean off icosapent ethyl [Vascepa] 1 gram capsule 2 g PO BID Patient Comments: TAKE TWO CAPSULES BY MOUTH TWICE A DAY Farxiga 5 mg tablet 5 mg PO DAILY Patient Comments: Take 1 tablet by mouth once a day hydromorphone 2 mg tablet 4 mg PO BID Patient Comments: TAKE TWO TABLETS BY MOUTH TWICE A DAY Entresto 97-103 mg tablet 1 tab PO BID Hold Instructions: Hold until PCP f/u or if SBP is consistently > 120 mmHg Patient Comments: TAKE ONE TABLET BY MOUTH TWICE A DAY pregabalin 100 mg capsule 100 mg PO TID Patient Comments: Take 1 capsule by mouth three times a day metoprolol tartrate 25 mg Tablet 12.5 mg PO BID Qty: 0 0RF magnesium oxide 400 MG tablet 400 mg PO HS Qty: 0 0RF levothyroxine [Synthroid] 25 MCG tablet 50 mcg PO HS omeprazole 20 mg Capsule,Delayed Release(Dr/Ec) 20 mg PO DAILY prochlorperazine maleate 10 mg Tablet 10 mg PO DAILY PRN (Reason: Headache) albuterol sulfate [Ventolin HFA] 90 mcg/actuation Hfa Aerosol Inhaler 2 puff INHALATION QID PRN naloxone [Narcan] 4 mg/actuation [place],Non-Aerosol 1 spray INTRANASAL ONCE PRN Patient Comments: Never used. valacyclovir 1 gram tablet 500 mg PO QHS aspirin 81 mg tablet,delayed release (DR/EC) 81 mg PO DAILY Qty: 14 0RF Rx Instructions: Take 1 daily with a meal for 30 days estradiol 1 mg tablet See Rx Instructions .ROUTE .COMPLEX Patient Comments: TAKE 1 TABLET BY MOUTH EVERY MORNING THEN 2 TABLETS EVERY EVENING Rx Instructions: --> 1mg qAM and 1.5m,g qPM hydrocortisone 2.5 % cream 1 applic topical QID Qty: 30 6RF acetaminophen 500 mg capsule 1,000 mg PO Q8H PRN PRNQty: 30 0RF lamotrigine [Lamictal] 100 mg tablet 150 mg PO HS Patient Comments: TAKE 1 TABLET BY MOUTH EVERY DAY bupropion HCl 150 mg tablet extended release 24 hr 150 mg PO BID Patient Comments: TAKE ONE TABLET BY MOUTH TWICE A DAY WITH MEALS
[2024-01-07 14:11] LABS: Abs Immature Grans 0.01 10^3/uL (0.0-0.06); Absolute Basophil Count 0.07 10^3/uL (0.0-0.2); Absolute Eosinophil Count 0.23 10^3/uL (0.0-0.7); Absolute Lymphocyte Count 3.69 10^3/uL (1.2-3.4); Absolute Monocyte Count 0.47 10^3/uL (0.1-0.8); Absolute Neutrophil Count 4.02 10^3/uL (1.2-6.7); Basophils % 0.8; Eosinophils % 2.7; HCT 47.1 % (36.0-46.0); HGB 15.6 g/dL (11.2-15.7); Immature Grans % 0.1; Lymphocytes % 43.5; MCHC 33.1 % (32.0-36.0); MCV 91 fL (80-95); MPV 10.4 fL (8.0-11.0); Monocytes % 5.5; Neutrophils % 47.4; Platelet Count 251 10^3/uL (130-400); RDW 13.2 % (11.7-14.6); RDW-SD 43.8 fL; WBC 8.49 10^3/uL (4.4-10.8)
[2024-01-07 14:27] LABS: Bilirubin Small (Negative); Blood Negative (Negative); Clarity Clear (Clear); Glucose 500 mg/dL (Negative); Ketones 15 mg/dL (Negative); Leukocyte Esterase Negative (Negative); Nitrite Negative (Negative); Specific Gravity >= 1.030 (1.005-1.025); pH 5.5 (5-8)
[2024-01-07 14:28] LABS: Salicylate < 2.8 mg/dL (<2.8)
[2024-01-07 14:33] LABS: Acetaminophen < 2 ug/mL (10-30)
[2024-01-07 14:36] LABS: ALT 28 U/L (14-59); AST 18 U/L (15-37); Alkaline Phosphatase 52 U/L (46-116); Anion Gap 10.4 mmol/L (3-11); BUN 12 mg/dL (7-18); Bilirubin, Total 0.6 mg/dL (0.2-1.0); CO2 28.6 mmol/L (21.0-32.0); CREATININE 0.8 mg/dL (0.55-1.02); Calcium 9.3 mg/dL (8.5-10.1); Chloride 103 mmol/L (98-107); Estimated GFR 90.83 (mL/min/1.73m2); Glucose 114 mg/dL (74-106); Potassium 3.9 mmol/L (3.5-5.1); Sodium 142 mmol/L (136-145); TSH (W/Ref FT4) 1.76 uIU/mL (0.36-3.74); Total Protein 7.6 g/dL (6.4-8.2)
[2024-01-07 14:37] LABS: ETHANOL BLOOD < 3.0 mg/dL (<10)
[2024-01-07 14:37] LABS: Bacteria Rare HPF (Negative); C & S Indicated? No; Casts 10-20 Hyaline LPF (Negative); Crystals Negative HPF (Negative); Epithelial Cells Moderate HPF (Negative); Mucus Moderate (Negative); RBC Negative HPF (0-2); WBC Negative HPF (0-5)
--- NOTE | 2024-01-07 16:17 | PDOC.MHCN ---
Date of service: 01/07/24 Time of Service: 14:31 PHQ-9 Over the last 2 weeks, how often have you been bothered by any of the following problems? 1. Little interest or pleasure in doing things: nearly every day 2. Feeling down, depressed, or hopeless: nearly every day 3. Trouble falling or staying asleep, or sleeping too much: nearly every day 4. Feeling tired or having little energy: nearly every day 5. Poor appetite or overeating: nearly every day 6. Feeling bad about yourself - or that you are a failure or have let yourself and your family down: nearly every day 7. Trouble concentrating on things, such as reading the newspaper or watching television: nearly every day 8. Moving or speaking so slowly that other people could have noticed? - Or the opposite - being so fidgety or restless that you have been moving around a lot more than usual: several days 9. Thoughts that you would be better off or of hurting yourself in some way: nearly every day Total score: 25 Source: Developed by Drs. Russell Early, Jennifer Armstrong, Jaydon Friedman and colleagues, with an educational amadeo from [employer]. Suicide Severity Rate CSSRS Have you wished you were or wished you could go to sleep and not wake up?: Yes Have you actually had any thoughts of killing yourself?: Yes CSSRS2 Have you been thinking about how you might do this?: Yes Have you had these thoughts and had some intention of acting on them?: Yes Have you started to work out or worked out the details of how to kill yourself? Do you intend to carry out this plan?: Yes CSSRS3 Have you ever done anything, started to do anything or prepared to do anything to end your life?: Yes CSSRS4 Was this within the past three months?: Yes Screening Score Total Score: 8 Screening: Positive Mental Health Emergency Note Release [facility] release signed:: Yes Reason for Visit In the last 2 weeks has the pt presented for ES prior to today?: Yes, presented at [facility] ED Non Suicidal Self Injury Current: No Safety Risk/Harm to Self or Others Current Ideation to Harm Self or Others: Yes to self. Intent: yes, has intent. Plan: yes,has a plan. History of suicide attempt: yes,history of suicide attempt reported. Details of previous suicide attempt: attempt 12/30/23 Asssessment/Mental Status Appearance: Disheveled Attitude: Cooperative Behavior: Unremarkable Speech: Normal and Soft Affect: Normal Mood: Depressed Thought process: Unremarkable Hallucinations: No evidence Delusions: No evidence Attention: Unremarkable Perception: Not impaired Orientation: Fully orientated Memory: Intact Insight: Good Judgement: Good Neurovegetative Symptoms Sleep: Increase Appetitie: Decrease Interests: Decrease Energy: Decrease Libido: Not applicable Substance Use: Have you used substances in the last 7 days?: No Impression Client reported to this technical proposal writer that she has recently left [facility]. Client believed that she received all the services and support that she needed to be safe in her day to day. Client released from [facility] and began to struggle again with her mental health. Client reported that she is experiencing an increase in her SI and is 'scared' of her thoughts. Client reported plans, intent, and access to this technical proposal writer. Client reported the plans of jumping off her building's roof, jumping off [employer], drive her car really fast and get into an accident, and trying to hang herself again. Client reported access to medications and sharps, client does not have access to anything she can hang herself with. Client reported no substance use at this time. Client reported having a support system of her ex- and friends. Client appeared to this technical proposal writer as depressed. Client reported to this technical proposal writer that she regrets leaving [facility] so soon, and needs further support offered in a inpatient facility. Client scored a 25/27 on the PHQ-9 and answered yes to all the CSSRS questions. Client was cooperative during the assessment process and answered all this writers? questions. Plan/Disposition Recommended Disposition: Hospitalization No. Plan: Client will remain at [facility] ED in Zone B until placement is found for her current persistent SI. Client will need daily reassessments until placement is found. Reports/communication Outcome discussed with: ED/Personnel
[2024-01-07] MEDS: metFORMIN C.R. 500 MG TABCR 1000 MG PO (16:50)
[2024-01-07 17:09] LABS: *AMPHETAMINES SCREEN URINE Negative (Negative); *BARBITURATES SCREEN URINE Negative (Negative); *BENZODIAZEPINES SCREEN URINE Positive (Negative); Cannabinoids THC Negative (Negative); Cocaine Screen,Urine Negative (Negative); METHADONE URINE SCREEN Negative (Negative); OPIATES URINE SCREEN Positive (Negative)
--- NOTE | 2024-01-07 17:27 | NUR.NOTE ---
brought in patient's home meds which were given to pharmacy family in to visit with patient Nursing Note:
[2024-01-07 17:30] LABS: Tricyclic Antidepressants Negative (Negative)
[2024-01-07] MEDS: buPROPion-XL 150 MG TABCR PO (17:57)
[2024-01-07] MEDS: clonazePAM 0.5 MG TAB 1 MG PO (19:53)
[2024-01-07 20:15] VITALS: PULSE 92; RESP 20; TEMP 36.6; O2SAT 99
[2024-01-07] MEDS: Naproxen 500 MG TAB PO (21:42)
[2024-01-07] MEDS: lamoTRIgine 100 MG TAB 150 MG PO (21:42)
[2024-01-07] MEDS: Metoprolol 12.5 MG TAB PO (21:42)
[2024-01-07] MEDS: Rosuvastatin 10 MG TAB PO (21:43)
[2024-01-07] MEDS: Pregabalin 100 MG CAP PO (21:43)
[2024-01-07] MEDS: Magnesium Oxide 400 MG TAB PO (21:43)
[2024-01-07] MEDS: Levothyroxine 50 MCG TAB PO (21:43)
[2024-01-07] MEDS: HYDROmorphone 4 MG TAB PO (22:13)
[2024-01-07] MEDS: Patient's Own Medication 1 EACH MISC PO (22:43)
--- NOTE | 2024-01-07 23:20 | W.EDPROG ---
Date of service: 01/07/24 Time of Service: 23:20 Medical Decision Making This patient was signed out to me. Please see previous notes for H&P and initial eval. In brief, 48yo F presents voluntarily with SI. Medically cleared, [facility] voluntary inpatient placement. Signed out awaiting placement. Overnight appeared to be sleeping restfully. Did not wake patient for assessment. Signed out to oncoming physician, plan remains as above. Quality:[facility] Health Related Social Needs: No Data to Display Sign Out Sign Out Data: Sign Out Comment: Care signed out to Dr. Jeremiah Garibay, please see my documentation regarding initial ED presentation and course. Plan at signout is to continue to monitor until inpatient treatment can be identified. Psychiatric consult pending. Patient is bringing in her home medications that we do not have these in pharmacy. Other home medications have been ordered. Last updated by Cisco French MD at 01/07/24 17:16 Sign Out Comment: depression, SI, awaiting placement Last updated by Kolby Carter MD at 01/07/24 22:49 Discharge Plan Discharge Details Chief Complaint: PsychEval Primary Care Provider: Edie Ellis ED Provider: Ioana Mcintyre Home Meds and New Rx's Prescriptions: No Action naproxen 250 mg tablet 500 mg PO BID PRN Hold Instructions: Hold until PCP f/u clonazepam 1 mg tablet 1 mg PO BID PRN melatonin 10 mg tablet 10 mg PO HS PRN loratadine 10 mg capsule 10 mg PO DAILY bupropion HCl [Wellbutrin SR] 150 mg tablet sustained-release 12 hr 150 mg PO BID cholecalciferol (vitamin D3) 50 mcg (2,000 unit) capsule 50 mcg PO DAILY metformin 500 mg tablet extended release 24 hr 1,000 mg PO BID Trulicity 1.5 mg/0.5 mL pen injector 3 mg subcut QWEEK Hold Instructions: Until f/u with PCP or if blood glucose levels begin to rise Rx Instructions: - on rosuvastatin [Crestor] 5 MG tablet 10 mg PO QPM naratriptan 2.5 mg tablet 2.5 mg PO BID PRN riboflavin (vitamin B2) [Vitamin B-2] 50 MG tablet 200 mg PO BID polyethylene glycol 3350 17 gram/dose Powder 17 g PO DAILY PRN cyanocobalamin (vitamin B-12) 1,000 mcg tablet 1,000 mcg PO DAILY Patient Comments: TAKE ONE TABLET BY MOUTH EVERY DAY duloxetine 30 mg capsule,delayed release(DR/EC) 30 mg PO DAILY Patient Comments: Take 1 capsule by mouth once a day to replace paxil which she will wean off icosapent ethyl [Vascepa] 1 gram capsule 2 g PO BID Patient Comments: TAKE TWO CAPSULES BY MOUTH TWICE A DAY Farxiga 5 mg tablet 5 mg PO DAILY Patient Comments: Take 1 tablet by mouth once a day hydromorphone 2 mg tablet 4 mg PO BID Patient Comments: TAKE TWO TABLETS BY MOUTH TWICE A DAY Entresto 97-103 mg tablet 1 tab PO BID Hold Instructions: Hold until PCP f/u or if SBP is consistently > 120 mmHg Patient Comments: TAKE ONE TABLET BY MOUTH TWICE A DAY pregabalin 100 mg capsule 100 mg PO TID Patient Comments: Take 1 capsule by mouth three times a day metoprolol tartrate 25 mg Tablet 12.5 mg PO BID Qty: 0 0RF magnesium oxide 400 MG tablet 400 mg PO HS Qty: 0 0RF levothyroxine [Synthroid] 25 MCG tablet 50 mcg PO HS omeprazole 20 mg Capsule,Delayed Release(Dr/Ec) 20 mg PO DAILY prochlorperazine maleate 10 mg Tablet 10 mg PO DAILY PRN (Reason: Headache) albuterol sulfate [Ventolin HFA] 90 mcg/actuation Hfa Aerosol Inhaler 2 puff INHALATION QID PRN naloxone [Narcan] 4 mg/actuation [place],Non-Aerosol 1 spray INTRANASAL ONCE PRN Patient Comments: Never used. valacyclovir 1 gram tablet 500 mg PO QHS aspirin 81 mg tablet,delayed release (DR/EC) 81 mg PO DAILY Qty: 14 0RF Rx Instructions: Take 1 daily with a meal for 30 days estradiol 1 mg tablet See Rx Instructions .ROUTE .COMPLEX Patient Comments: TAKE 1 TABLET BY MOUTH EVERY MORNING THEN 2 TABLETS EVERY EVENING Rx Instructions: --> 1mg qAM and 1.5m,g qPM hydrocortisone 2.5 % cream 1 applic topical QID Qty: 30 6RF acetaminophen 500 mg capsule 1,000 mg PO Q8H PRN PRNQty: 30 0RF lamotrigine [Lamictal] 100 mg tablet 150 mg PO HS Patient Comments: TAKE 1 TABLET BY MOUTH EVERY DAY bupropion HCl 150 mg tablet extended release 24 hr 150 mg PO BID Patient Comments: TAKE ONE TABLET BY MOUTH TWICE A DAY WITH MEALS
--- NOTE | 2024-01-08 07:09 | ED.PROG_ITS ---
Date of service: 01/08/24 Time of Service: 07:09 Medical Decision Making 48-year-old female seeking voluntary placement for depression and suicidal ideations, no reported issues overnight. No acute complaints. Will continue to monitor until safe disposition found Quality:[facility] Health Related Social Needs: No Data to Display Sign Out Sign Out Data: Sign Out Comment: Care signed out to Dr. Jeremiah Garibay, please see my documentation regarding initial ED presentation and course. Plan at signout is to continue to monitor until inpatient treatment can be identified. Psychiatric consult pending. Patient is bringing in her home medications that we do not have these in pharmacy. Other home medications have been ordered. Last updated by Cisco French MD at 01/07/24 17:16 Sign Out Comment: depression, SI, awaiting placement Last updated by Kolby Carter MD at 01/07/24 22:49 Sign Out Comment: 48yo F, SI, medically cleared, home meds in, pending voluntary placement. Last updated by Ioana Mcintyre MD at 01/08/24 06:53 Discharge Plan Discharge Details Chief Complaint: PsychEval Primary Care Provider: Edie [facility] ED Provider: Taurus Ricardo Home Meds and New Rx's Prescriptions: No Action naproxen 250 mg tablet 500 mg PO BID PRN Hold Instructions: Hold until PCP f/u clonazepam 1 mg tablet 1 mg PO BID PRN melatonin 10 mg tablet 10 mg PO HS PRN loratadine 10 mg capsule 10 mg PO DAILY bupropion HCl [Wellbutrin SR] 150 mg tablet sustained-release 12 hr 150 mg PO BID cholecalciferol (vitamin D3) 50 mcg (2,000 unit) capsule 50 mcg PO DAILY metformin 500 mg tablet extended release 24 hr 1,000 mg PO BID Trulicity 1.5 mg/0.5 mL pen injector 3 mg subcut QWEEK Hold Instructions: Until f/u with PCP or if blood glucose levels begin to rise Rx Instructions: - on rosuvastatin [Crestor] 5 MG tablet 10 mg PO QPM naratriptan 2.5 mg tablet 2.5 mg PO BID PRN riboflavin (vitamin B2) [Vitamin B-2] 50 MG tablet 200 mg PO BID polyethylene glycol 3350 17 gram/dose Powder 17 g PO DAILY PRN cyanocobalamin (vitamin B-12) 1,000 mcg tablet 1,000 mcg PO DAILY Patient Comments: TAKE ONE TABLET BY MOUTH EVERY DAY duloxetine 30 mg capsule,delayed release(DR/EC) 30 mg PO DAILY Patient Comments: Take 1 capsule by mouth once a day to replace paxil which she will wean off icosapent ethyl [Vascepa] 1 gram capsule 2 g PO BID Patient Comments: TAKE TWO CAPSULES BY MOUTH TWICE A DAY Farxiga 5 mg tablet 5 mg PO DAILY Patient Comments: Take 1 tablet by mouth once a day hydromorphone 2 mg tablet 4 mg PO BID Patient Comments: TAKE TWO TABLETS BY MOUTH TWICE A DAY Entresto 97-103 mg tablet 1 tab PO BID Hold Instructions: Hold until PCP f/u or if SBP is consistently > 120 mmHg Patient Comments: TAKE ONE TABLET BY MOUTH TWICE A DAY pregabalin 100 mg capsule 100 mg PO TID Patient Comments: Take 1 capsule by mouth three times a day metoprolol tartrate 25 mg Tablet 12.5 mg PO BID Qty: 0 0RF magnesium oxide 400 MG tablet 400 mg PO HS Qty: 0 0RF levothyroxine [Synthroid] 25 MCG tablet 50 mcg PO HS omeprazole 20 mg Capsule,Delayed Release(Dr/Ec) 20 mg PO DAILY prochlorperazine maleate 10 mg Tablet 10 mg PO DAILY PRN (Reason: Headache) albuterol sulfate [Ventolin HFA] 90 mcg/actuation Hfa Aerosol Inhaler 2 puff INHALATION QID PRN naloxone [Narcan] 4 mg/actuation [place],Non-Aerosol 1 spray INTRANASAL ONCE PRN Patient Comments: Never used. valacyclovir 1 gram tablet 500 mg PO QHS aspirin 81 mg tablet,delayed release (DR/EC) 81 mg PO DAILY Qty: 14 0RF Rx Instructions: Take 1 daily with a meal for 30 days estradiol 1 mg tablet See Rx Instructions .ROUTE .COMPLEX Patient Comments: TAKE 1 TABLET BY MOUTH EVERY MORNING THEN 2 TABLETS EVERY EVENING Rx Instructions: --> 1mg qAM and 1.5m,g qPM hydrocortisone 2.5 % cream 1 applic topical QID Qty: 30 6RF acetaminophen 500 mg capsule 1,000 mg PO Q8H PRN PRNQty: 30 0RF lamotrigine [Lamictal] 100 mg tablet 150 mg PO HS Patient Comments: TAKE 1 TABLET BY MOUTH EVERY DAY bupropion HCl 150 mg tablet extended release 24 hr 150 mg PO BID Patient Comments: TAKE ONE TABLET BY MOUTH TWICE A DAY WITH MEALS
[2024-01-08] MEDS: Loratidine 10 MG TAB PO (08:14)
[2024-01-08] MEDS: valACYclovir 500 MG TAB PO (08:14)
[2024-01-08] MEDS: Metoprolol 12.5 MG TAB PO ×2 (08:14→21:07)
[2024-01-08] MEDS: buPROPion-XL 150 MG TABCR PO ×2 (08:14→17:20)
[2024-01-08] MEDS: DULoxetine 30 MG CAP PO (08:14)
[2024-01-08] MEDS: Omeprazole 20 MG CAPCR PO (08:14)
[2024-01-08] MEDS: Pregabalin 100 MG CAP PO ×3 (08:15→21:11)
[2024-01-08] MEDS: metFORMIN C.R. 500 MG TABCR 1000 MG PO ×2 (08:15→17:20)
[2024-01-08 08:49] VITALS: BP 100/69; PULSE 78; RESP 20; TEMP 36.2; O2SAT 97
[2024-01-08] MEDS: Cyanocobalamin 500 MCG TAB 1000 MCG PO (09:13)
[2024-01-08] MEDS: Cholecalciferol (Vitamin D3) 1,000 UNIT TAB 2000 UNITS PO (09:13)
[2024-01-08] MEDS: Estradiol 1 MG TAB PO (09:14)
--- NOTE | 2024-01-08 12:42 | CMSP_ITS ---
Date of service: 01/08/24 Time of Service: 12:42 Care Management Safety Plan Status Status: Voluntary Reason for Wait Reason for Wait: Inpatient Admission Safety Plan Safety Plan: VOLUNTARY FOR INPATIENT PSYCHIATRIC STABILIZATION.? Patient is appropriate in all interactions since arriving at [facility]; Pt has demonstrated appropriate coping and communication skills, has articulated his or her needs and concerns and is fully engaged during staff interactions. Safety plan has been established with patient, and care team, to adhere to patient goals, identify restrictions based on behavioral status, address nutrition, and determine allowed personal belongings, tools for hygiene and personal care. Determine level of activity including ambulation, level of superv ision, visitors, and determine privileges based on behaviors and level of engagement by pt. SAFETY PLAN: 1. Will remain on suicide precautions, in paper clothes 2. Will remain in Zone B under direct supervision of one-on-one staff at all times provided by [employer]; [employer]OSEL[employer], ENERGY ADVISOR customer services supervisor. 3. May have paper cups, plates, finger foods as well as a cardboard spoon with which to eat meals. 4. Follow [facility] Management of the Admitted Behavioral Health Patient policy. 5. Shower available in Zone B without restriction. 6. Personal belongings-soft items permitted at RN discretion. 7. Visitors-none at this time. 8. Activities: soft cart items approved per RN discretion. 9.? Bathroom available in Zone B without restriction. 10. Phone: limited to [facility] cordless phone at RN discretion. Due to VOLUNTARY status, if patient wishes to leave [facility], staff will contact [facility] Crisis Screener ([phone]) and On-Call Complaint Investigator ([phone]) as soon as possible. In the event of elopement, notify [facility] Police ([phone]). Patient is currently voluntarily at [facility] and seeking inpatient admission when a bed becomes available. [facility] Frontline Slunk Skinner will continue seeking placement. Please contact the Metal Caster Complaint Investigator ([phone]) and [facility] Slunk Skinner ([phone]) for any needed changes in the Safety Plan. Safety plan has been provided to interdepartmental care team.
--- NOTE | 2024-01-08 12:42 | PDOC.CMSAFE ---
Date of service: 01/08/24 Time of Service: 12:42 Care Management Safety Plan Status Status: Voluntary Reason for Wait Reason for Wait: Inpatient Admission Safety Plan Safety Plan: VOLUNTARY FOR INPATIENT PSYCHIATRIC STABILIZATION.? Patient is appropriate in all interactions since arriving at [facility]; Pt has demonstrated appropriate coping and communication skills, has articulated his or her needs and concerns and is fully engaged during staff interactions. Safety plan has been established with patient, and care team, to adhere to patient goals, identify restrictions based on behavioral status, address nutrition, and determine allowed personal belongings, tools for hygiene and personal care. Determine level of activity including ambulation, level of supervision, visitors, and determine privileges based on behaviors and level of engagement by pt. SAFETY PLAN: 1. Will remain on suicide precautions, in paper clothes 2. Will remain in Zone B under direct supervision of one-on-one staff at all times provided by [employer]; YOSELIN, SPLICER HELPER kiln head house operator. 3. May have paper cups, plates, finger foods as well as a cardboard spoon with which to eat meals. 4. Follow [facility] Management of the Admitted Behavioral Health Patient policy. 5. Shower available in Zone B without restriction. 6. Personal belongings-soft items permitted at RN discretion. 7. Visitors-none at this time. 8. Activities: soft cart items approved per RN discretion. 9.? Bathroom available in Zone B without restriction. 10. Phone: limited to [facility] cordless phone at RN discretion. Due to VOLUNTARY status, if patient wishes to leave [facility], staff will contact [facility] Crisis Screener ([phone]) and On-Call [employer] ([phone]) as soon as possible. In the event of elopement, notify [facility] Police ([phone]). Patient is currently voluntarily at [facility] and seeking inpatient admission when a bed becomes available. [facility] Frontline Tier Truck Driver will continue seeking placement. Please contact the Collection Systems Modeler [employer] ([phone]) and [facility] Tier Truck Driver ([phone]) for any needed changes in the Safety Plan. Safety plan has been provided to interdepartmental care team.
--- NOTE | 2024-01-08 16:49 | W.EDPROG ---
Date of service: 01/08/24 Time of Service: 16:49 Medical Decision Making I received signout on this 48-year-old female in the emergency department in setting of suicidal ideation. She is medically cleared. She is voluntary. No active behavioral issues/shift. Will update documentation as clinically warranted and sign patient out to the oncoming overnight provider. 8:04 PM Patient had several episodes of nausea and 1 episode of vomiting at 6 PM. She requested her outpatient prochlorperazine which I ordered at 10 mg every 8 hours as needed. 9:55 PM No active behavioral issues/shift. Will sign patient out to oncoming overnight provider. Quality:[facility] Health Related Social Needs: No Data to Display Sign Out Sign Out Data: Sign Out Comment: Care signed out to Dr. Jeremiah Garibay, please see my documentation regarding initial ED presentation and course. Plan at signout is to continue to monitor until inpatient treatment can be identified. Psychiatric consult pending. Patient is bringing in her home medications that we do not have these in pharmacy. Other home medications have been ordered. Last updated by Cisco French MD at 01/07/24 17:16 Sign Out Comment: depression, SI, awaiting placement Last updated by Kolby Carter MD at 01/07/24 22:49 Sign Out Comment: 48yo F, SI, medically cleared, home meds in, pending voluntary placement. Last updated by Ioana Mcintyre MD at 01/08/24 06:53 Sign Out Comment: pending voluntary placement for SI/depression, stable during shift Last updated by Taurus Ricardo MD at 01/08/24 16:14 Discharge Plan Discharge Details Chief Complaint: PsychEval Primary Care Provider: Edie Ellis ED Provider: Prudencio Sims Home Meds and New Rx's Prescriptions: No Action naproxen 250 mg tablet 500 mg PO BID PRN Hold Instructions: Hold until PCP f/u clonazepam 1 mg tablet 1 mg PO BID PRN melatonin 10 mg tablet 10 mg PO HS PRN loratadine 10 mg capsule 10 mg PO DAILY bupropion HCl [Wellbutrin SR] 150 mg tablet sustained-release 12 hr 150 mg PO BID cholecalciferol (vitamin D3) 50 mcg (2,000 unit) capsule 50 mcg PO DAILY metformin 500 mg tablet extended release 24 hr 1,000 mg PO BID Trulicity 1.5 mg/0.5 mL pen injector 3 mg subcut QWEEK Hold Instructions: Until f/u with PCP or if blood glucose levels begin to rise Rx Instructions: - on rosuvastatin [Crestor] 5 MG tablet 10 mg PO QPM naratriptan 2.5 mg tablet 2.5 mg PO BID PRN riboflavin (vitamin B2) [Vitamin B-2] 50 MG tablet 200 mg PO BID polyethylene glycol 3350 17 gram/dose Powder 17 g PO DAILY PRN cyanocobalamin (vitamin B-12) 1,000 mcg tablet 1,000 mcg PO DAILY Patient Comments: TAKE ONE TABLET BY MOUTH EVERY DAY duloxetine 30 mg capsule,delayed release(DR/EC) 30 mg PO DAILY Patient Comments: Take 1 capsule by mouth once a day to replace paxil which she will wean off icosapent ethyl [Vascepa] 1 gram capsule 2 g PO BID Patient Comments: TAKE TWO CAPSULES BY MOUTH TWICE A DAY Farxiga 5 mg tablet 5 mg PO DAILY Patient Comments: Take 1 tablet by mouth once a day hydromorphone 2 mg tablet 4 mg PO BID Patient Comments: TAKE TWO TABLETS BY MOUTH TWICE A DAY Entresto 97-103 mg tablet 1 tab PO BID Hold Instructions: Hold until PCP f/u or if SBP is consistently > 120 mmHg Patient Comments: TAKE ONE TABLET BY MOUTH TWICE A DAY pregabalin 100 mg capsule 100 mg PO TID Patient Comments: Take 1 capsule by mouth three times a day metoprolol tartrate 25 mg Tablet 12.5 mg PO BID Qty: 0 0RF magnesium oxide 400 MG tablet 400 mg PO HS Qty: 0 0RF levothyroxine [Synthroid] 25 MCG tablet 50 mcg PO HS omeprazole 20 mg Capsule,Delayed Release(Dr/Ec) 20 mg PO DAILY prochlorperazine maleate 10 mg Tablet 10 mg PO DAILY PRN (Reason: Headache) albuterol sulfate [Ventolin HFA] 90 mcg/actuation Hfa Aerosol Inhaler 2 puff INHALATION QID PRN naloxone [Narcan] 4 mg/actuation [place],Non-Aerosol 1 spray INTRANASAL ONCE PRN Patient Comments: Never used. valacyclovir 1 gram tablet 500 mg PO QHS aspirin 81 mg tablet,delayed release (DR/EC) 81 mg PO DAILY Qty: 14 0RF Rx Instructions: Take 1 daily with a meal for 30 days estradiol 1 mg tablet See Rx Instructions .ROUTE .COMPLEX Patient Comments: TAKE 1 TABLET BY MOUTH EVERY MORNING THEN 2 TABLETS EVERY EVENING Rx Instructions: --> 1mg qAM and 1.5m,g qPM hydrocortisone 2.5 % cream 1 applic topical QID Qty: 30 6RF acetaminophen 500 mg capsule 1,000 mg PO Q8H PRN PRNQty: 30 0RF lamotrigine [Lamictal] 100 mg tablet 150 mg PO HS Patient Comments: TAKE 1 TABLET BY MOUTH EVERY DAY bupropion HCl 150 mg tablet extended release 24 hr 150 mg PO BID Patient Comments: TAKE ONE TABLET BY MOUTH TWICE A DAY WITH MEALS
[2024-01-08] MEDS: Prochlorperazine 10 MG TAB PO (20:18)
[2024-01-08 21:00] VITALS: BP 100/67; PULSE 92; RESP 18; TEMP 36.1; O2SAT 99
[2024-01-08] MEDS: Naproxen 500 MG TAB PO (21:07)
[2024-01-08] MEDS: lamoTRIgine 100 MG TAB 150 MG PO (21:07)
[2024-01-08] MEDS: Magnesium Oxide 400 MG TAB PO (21:10)
[2024-01-08] MEDS: HYDROmorphone 4 MG TAB PO (21:10)
[2024-01-08] MEDS: Estradiol 1 MG TAB 1.5 MG PO (21:11)
[2024-01-08] MEDS: Levothyroxine 50 MCG TAB PO (21:12)
[2024-01-08] MEDS: Rosuvastatin 10 MG TAB PO (21:57)
--- NOTE | 2024-01-08 22:00 | NUR.NOTE ---
Nursing NoteSpoke with Riya about possible Rafal placement:
--- NOTE | 2024-01-08 23:12 | W.EDPROG ---
Date of service: 01/08/24 Time of Service: 23:12 Medical Decision Making This patient was signed out to me. Please see previous notes for H&P and initial eval. In brief, 48yo F awaiting voluntary psych placement for SI. Overnight appeared to be sleeping comfortably. No behavioral issues. Did not wake patient for assessment. Signed out to oncoming physician, plan remains as above. Quality:[facility] Health Related Social Needs: No Data to Display Sign Out Sign Out Data: Sign Out Comment: Care signed out to Dr. Jeremiah Garibay, please see my documentation regarding initial ED presentation and course. Plan at signout is to continue to monitor until inpatient treatment can be identified. Psychiatric consult pending. Patient is bringing in her home medications that we do not have these in pharmacy. Other home medications have been ordered. Last updated by Cisco French MD at 01/07/24 17:16 Sign Out Comment: depression, SI, awaiting placement Last updated by Kolby Carter MD at 01/07/24 22:49 Sign Out Comment: 48yo F, SI, medically cleared, home meds in, pending voluntary placement. Last updated by Ioana Mcintyre MD at 01/08/24 06:53 Sign Out Comment: pending voluntary placement for SI/depression, stable during shift Last updated by Taurus Ricardo MD at 01/08/24 16:14 Sign Out Comment: Medically cleared voluntary patient with suicidal ideation. No active behavioral issues last shift. Last updated by Prudencio Sims MD at 01/08/24 21:56 Discharge Plan Discharge Details Chief Complaint: PsychEval Primary Care Provider: Edie Ellis ED Provider: Ioana Mcintyre Home Meds and New Rx's Prescriptions: No Action naproxen 250 mg tablet 500 mg PO BID PRN Hold Instructions: Hold until PCP f/u clonazepam 1 mg tablet 1 mg PO BID PRN melatonin 10 mg tablet 10 mg PO HS PRN loratadine 10 mg capsule 10 mg PO DAILY bupropion HCl [Wellbutrin SR] 150 mg tablet sustained-release 12 hr 150 mg PO BID cholecalciferol (vitamin D3) 50 mcg (2,000 unit) capsule 50 mcg PO DAILY metformin 500 mg tablet extended release 24 hr 1,000 mg PO BID Trulicity 1.5 mg/0.5 mL pen injector 3 mg subcut QWEEK Hold Instructions: Until f/u with PCP or if blood glucose levels begin to rise Rx Instructions: - on rosuvastatin [Crestor] 5 MG tablet 10 mg PO QPM naratriptan 2.5 mg tablet 2.5 mg PO BID PRN riboflavin (vitamin B2) [Vitamin B-2] 50 MG tablet 200 mg PO BID polyethylene glycol 3350 17 gram/dose Powder 17 g PO DAILY PRN cyanocobalamin (vitamin B-12) 1,000 mcg tablet 1,000 mcg PO DAILY Patient Comments: TAKE ONE TABLET BY MOUTH EVERY DAY duloxetine 30 mg capsule,delayed release(DR/EC) 30 mg PO DAILY Patient Comments: Take 1 capsule by mouth once a day to replace paxil which she will wean off icosapent ethyl [Vascepa] 1 gram capsule 2 g PO BID Patient Comments: TAKE TWO CAPSULES BY MOUTH TWICE A DAY Farxiga 5 mg tablet 5 mg PO DAILY Patient Comments: Take 1 tablet by mouth once a day hydromorphone 2 mg tablet 4 mg PO BID Patient Comments: TAKE TWO TABLETS BY MOUTH TWICE A DAY Entresto 97-103 mg tablet 1 tab PO BID Hold Instructions: Hold until PCP f/u or if SBP is consistently > 120 mmHg Patient Comments: TAKE ONE TABLET BY MOUTH TWICE A DAY pregabalin 100 mg capsule 100 mg PO TID Patient Comments: Take 1 capsule by mouth three times a day metoprolol tartrate 25 mg Tablet 12.5 mg PO BID Qty: 0 0RF magnesium oxide 400 MG tablet 400 mg PO HS Qty: 0 0RF levothyroxine [Synthroid] 25 MCG tablet 50 mcg PO HS omeprazole 20 mg Capsule,Delayed Release(Dr/Ec) 20 mg PO DAILY prochlorperazine maleate 10 mg Tablet 10 mg PO DAILY PRN (Reason: Headache) albuterol sulfate [Ventolin HFA] 90 mcg/actuation Hfa Aerosol Inhaler 2 puff INHALATION QID PRN naloxone [Narcan] 4 mg/actuation [place],Non-Aerosol 1 spray INTRANASAL ONCE PRN Patient Comments: Never used. valacyclovir 1 gram tablet 500 mg PO QHS aspirin 81 mg tablet,delayed release (DR/EC) 81 mg PO DAILY Qty: 14 0RF Rx Instructions: Take 1 daily with a meal for 30 days estradiol 1 mg tablet See Rx Instructions .ROUTE .COMPLEX Patient Comments: TAKE 1 TABLET BY MOUTH EVERY MORNING THEN 2 TABLETS EVERY EVENING Rx Instructions: --> 1mg qAM and 1.5m,g qPM hydrocortisone 2.5 % cream 1 applic topical QID Qty: 30 6RF acetaminophen 500 mg capsule 1,000 mg PO Q8H PRN PRNQty: 30 0RF lamotrigine [Lamictal] 100 mg tablet 150 mg PO HS Patient Comments: TAKE 1 TABLET BY MOUTH EVERY DAY bupropion HCl 150 mg tablet extended release 24 hr 150 mg PO BID Patient Comments: TAKE ONE TABLET BY MOUTH TWICE A DAY WITH MEALS
[2024-01-09 07:15] VITALS: BP 101/70; PULSE 99; RESP 16; TEMP 36.6; O2SAT 95
--- NOTE | 2024-01-09 07:22 | W.EDPROG ---
Date of service: 01/09/24 Time of Service: 07:22 Medical Decision Making Patient signed out to me with no reported incidents overnight, still seeking voluntary placement for depression and suicidal ideations. Patient currently without acute complaints, will continue to monitor until safe disposition found Quality:[facility] Health Related Social Needs: No Data to Display Sign Out Sign Out Data: Sign Out Comment: Care signed out to Dr. Jeremiah Garibay, please see my documentation regarding initial ED presentation and course. Plan at signout is to continue to monitor until inpatient treatment can be identified. Psychiatric consult pending. Patient is bringing in her home medications that we do not have these in pharmacy. Other home medications have been ordered. Last updated by Cisco French MD at 01/07/24 17:16 Sign Out Comment: depression, SI, awaiting placement Last updated by Kolby Carter MD at 01/07/24 22:49 Sign Out Comment: 48yo F, SI, medically cleared, home meds in, pending voluntary placement. Last updated by Ioana Mcintyre MD at 01/08/24 06:53 Sign Out Comment: pending voluntary placement for SI/depression, stable during shift Last updated by Taurus Ricardo MD at 01/08/24 16:14 Sign Out Comment: Medically cleared voluntary patient with suicidal ideation. No active behavioral issues last shift. Last updated by Prudencio Sims MD at 01/08/24 21:56 Discharge Plan Discharge Details Chief Complaint: PsychEval Primary Care Provider: Edie Ellis ED Provider: Taurus Ricardo Home Meds and New Rx's Prescriptions: No Action naproxen 250 mg tablet 500 mg PO BID PRN Hold Instructions: Hold until PCP f/u clonazepam 1 mg tablet 1 mg PO BID PRN melatonin 10 mg tablet 10 mg PO HS PRN loratadine 10 mg capsule 10 mg PO DAILY bupropion HCl [Wellbutrin SR] 150 mg tablet sustained-release 12 hr 150 mg PO BID cholecalciferol (vitamin D3) 50 mcg (2,000 unit) capsule 50 mcg PO DAILY metformin 500 mg tablet extended release 24 hr 1,000 mg PO BID Trulicity 1.5 mg/0.5 mL pen injector 3 mg subcut QWEEK Hold Instructions: Until f/u with PCP or if blood glucose levels begin to rise Rx Instructions: - on rosuvastatin [Crestor] 5 MG tablet 10 mg PO QPM naratriptan 2.5 mg tablet 2.5 mg PO BID PRN riboflavin (vitamin B2) [Vitamin B-2] 50 MG tablet 200 mg PO BID polyethylene glycol 3350 17 gram/dose Powder 17 g PO DAILY PRN cyanocobalamin (vitamin B-12) 1,000 mcg tablet 1,000 mcg PO DAILY Patient Comments: TAKE ONE TABLET BY MOUTH EVERY DAY duloxetine 30 mg capsule,delayed release(DR/EC) 30 mg PO DAILY Patient Comments: Take 1 capsule by mouth once a day to replace paxil which she will wean off icosapent ethyl [Vascepa] 1 gram capsule 2 g PO BID Patient Comments: TAKE TWO CAPSULES BY MOUTH TWICE A DAY Farxiga 5 mg tablet 5 mg PO DAILY Patient Comments: Take 1 tablet by mouth once a day hydromorphone 2 mg tablet 4 mg PO BID Patient Comments: TAKE TWO TABLETS BY MOUTH TWICE A DAY Entresto 97-103 mg tablet 1 tab PO BID Hold Instructions: Hold until PCP f/u or if SBP is consistently > 120 mmHg Patient Comments: TAKE ONE TABLET BY MOUTH TWICE A DAY pregabalin 100 mg capsule 100 mg PO TID Patient Comments: Take 1 capsule by mouth three times a day metoprolol tartrate 25 mg Tablet 12.5 mg PO BID Qty: 0 0RF magnesium oxide 400 MG tablet 400 mg PO HS Qty: 0 0RF levothyroxine [Synthroid] 25 MCG tablet 50 mcg PO HS omeprazole 20 mg Capsule,Delayed Release(Dr/Ec) 20 mg PO DAILY prochlorperazine maleate 10 mg Tablet 10 mg PO DAILY PRN (Reason: Headache) albuterol sulfate [Ventolin HFA] 90 mcg/actuation Hfa Aerosol Inhaler 2 puff INHALATION QID PRN naloxone [Narcan] 4 mg/actuation [place],Non-Aerosol 1 spray INTRANASAL ONCE PRN Patient Comments: Never used. valacyclovir 1 gram tablet 500 mg PO QHS aspirin 81 mg tablet,delayed release (DR/EC) 81 mg PO DAILY Qty: 14 0RF Rx Instructions: Take 1 daily with a meal for 30 days estradiol 1 mg tablet See Rx Instructions .ROUTE .COMPLEX Patient Comments: TAKE 1 TABLET BY MOUTH EVERY MORNING THEN 2 TABLETS EVERY EVENING Rx Instructions: --> 1mg qAM and 1.5m,g qPM hydrocortisone 2.5 % cream 1 applic topical QID Qty: 30 6RF acetaminophen 500 mg capsule 1,000 mg PO Q8H PRN PRNQty: 30 0RF lamotrigine [Lamictal] 100 mg tablet 150 mg PO HS Patient Comments: TAKE 1 TABLET BY MOUTH EVERY DAY bupropion HCl 150 mg tablet extended release 24 hr 150 mg PO BID Patient Comments: TAKE ONE TABLET BY MOUTH TWICE A DAY WITH MEALS
[2024-01-09] MEDS: metFORMIN C.R. 500 MG TABCR 1000 MG PO ×2 (07:51→17:00)
[2024-01-09] MEDS: Pregabalin 100 MG CAP PO ×3 (07:51→19:05)
[2024-01-09] MEDS: DULoxetine 30 MG CAP PO (07:51)
[2024-01-09] MEDS: Estradiol 1 MG TAB PO (07:51)
[2024-01-09] MEDS: Metoprolol 12.5 MG TAB PO ×2 (07:51→19:05)
[2024-01-09] MEDS: buPROPion-XL 150 MG TABCR PO ×2 (07:51→16:59)
[2024-01-09] MEDS: Cyanocobalamin 500 MCG TAB 1000 MCG PO (07:51)
[2024-01-09] MEDS: Loratidine 10 MG TAB PO (07:52)
[2024-01-09] MEDS: HYDROmorphone 4 MG TAB PO ×2 (07:52→20:17)
[2024-01-09] MEDS: Omeprazole 20 MG CAPCR PO (07:52)
[2024-01-09] MEDS: Cholecalciferol (Vitamin D3) 1,000 UNIT TAB 2000 UNITS PO (07:52)
[2024-01-09] MEDS: valACYclovir 500 MG TAB PO (07:52)
--- NOTE | 2024-01-09 10:17 | PDOC.MHPN2 ---
Date of service: 01/09/24 Time of Service: 10:00 PHQ-9 Over the last 2 weeks, how often have you been bothered by any of the following problems? 1. Little interest or pleasure in doing things: nearly every day 2. Feeling down, depressed, or hopeless: nearly every day 3. Trouble falling or staying asleep, or sleeping too much: nearly every day 4. Feeling tired or having little energy: nearly every day 5. Poor appetite or overeating: nearly every day 6. Feeling bad about yourself - or that you are a failure or have let yourself and your family down: nearly every day 7. Trouble concentrating on things, such as reading the newspaper or watching television: nearly every day 8. Moving or speaking so slowly that other people could have noticed? - Or the opposite - being so fidgety or restless that you have been moving around a lot more than usual: several days 9. Thoughts that you would be better off or of hurting yourself in some way: nearly every day Total score: 25 Source: Developed by Drs. Russell Early, Jennifer Armstrong, Jaydon Friedman and colleagues, with an educational amadeo from [employer]. Suicide Severity Rate CSSRS Have you wished you were or wished you could go to sleep and not wake up?: Yes Have you actually had any thoughts of killing yourself?: Yes CSSRS2 Have you been thinking about how you might do this?: Yes Have you had these thoughts and had some intention of acting on them?: Yes Have you started to work out or worked out the details of how to kill yourself? Do you intend to carry out this plan?: Yes CSSRS3 Have you ever done anything, started to do anything or prepared to do anything to end your life?: Yes CSSRS4 Was this within the past three months?: Yes Screening Score Total Score: 8 Screening: Positive Mental Health Emergency Note Release [facility] release signed:: Yes Reason for Visit In the last 2 weeks has the pt presented for ES prior to today?: Yes, presented at [facility] ED Non Suicidal Self Injury Current: No Safety Risk/Harm to Self or Others Current Ideation to Harm Self or Others: Yes to self. Intent: yes, has intent. Plan: yes,has a plan. History of suicide attempt: yes,history of suicide attempt reported. Details of previous suicide attempt: attempt 12/30/23 Asssessment/Mental Status Appearance: Disheveled Attitude: Cooperative Behavior: Unremarkable Speech: Normal and Soft Affect: Normal Mood: Depressed Thought process: Unremarkable Hallucinations: No evidence Delusions: No evidence Attention: Unremarkable Perception: Not impaired Orientation: Fully orientated Memory: Intact Insight: Good Judgement: Good Neurovegetative Symptoms Sleep: Decrease (broken sleep patterns, difficulty with onset) Appetitie: Decrease Interests: Decrease Energy: Decrease Libido: Not applicable Substance Use: Have you used substances in the last 7 days?: No Impression Client is a 48 year old caucsion female presenting via [facility] at [facility] for reassessment while awaiting voluntary placement. This report writer consulted with clients [facility] nurse Hesham, stated client had a uneventful night and no behavioral concerns. Client presents orientated across all spheres, denies HI, reported ongoing passive SI, thoughts of not wanting to be here. Client reported on Likert scale 0/10 SI being a 5-6, client reported difficulty to control and lingering. Client amendable for awaiting continued voluntary placement. Client reported broken sleep patterns and difficulty onset, stated falling asleep around 11:00pm and waking up throughout the night. Client report eating breakfast this morning and feeling okay when asked to describe mood. This report writer checked in with [facility], client under review, [facility] client under review, [facility] declined client and [facility] is at capacity however will keep client on this list. This report writer will send updated reassessment to all hospital.s Plan/Disposition Recommended Disposition: Hospitalization (referrals submitted for voluntary placement ) facilities contacted. Plan: Client will remain at [facility] ED in Zone B until placement is found for her current persistent SI. Client will need daily reassessments until placement is found. Facilities contacted if Applicable [facility] (Under review) Not accepted, (under review ) Other [facility] (will continue to have client on list, [facility] at capacity ) Not accepted, No bed available [facility] Not [facility], [facility]under review [facility], [facility] Other Reports/communication Outcome discussed with: ED/Personnel (KANNAN Dahl)
--- NOTE | 2024-01-09 14:32 | PDOC.CMSAFE ---
Date of service: 01/09/24 Time of Service: 14:32 Care Management Safety Plan Status Status: Voluntary Reason for Wait Reason for Wait: Inpatient Admission Safety Plan Safety Plan: VOLUNTARY FOR INPATIENT PSYCHIATRIC STABILIZATION.? Patient is appropriate in all interactions since arriving at [facility]; Pt has demonstrated appropriate coping and communication skills, has articulated his or her needs and concerns and is fully engaged during staff interactions. Safety plan has been established with patient, and care team, to adhere to patient goals, identify restrictions based on behavioral status, address nutrition, and determine allowed personal belongings, tools for hygiene and personal care. Determine level of activity including ambulation, level of supervision, visitors, and determine privileges based on behaviors and level of engagement by pt. SAFETY PLAN: 1. Will remain on suicide precautions, in paper clothes 2. Will remain in Zone B under direct supervision of one-on-one staff at all times provided by [employer]; [employer], [employer] coding compliance auditor. 3. May have paper cups, plates, finger foods as well as a cardboard spoon with which to eat meals. 4. Follow [facility] Management of the Admitted Behavioral Health Patient policy. 5. Shower available in Zone B without restriction. 6. Personal belongings-soft items permitted at RN discretion. 7. Visitors-family may visit at nursing's discretion 8. Activities: soft cart items approved per RN discretion. 9.? Bathroom available in Zone B without restriction. 10. Phone: limited to [facility] cordless phone at RN discretion. Due to VOLUNTARY status, if patient wishes to leave [facility], staff will contact [facility] Crisis Screener ([phone]) and On[employer]Call International Representative ([phone]) as soon as possible. In the event of elopement, notify [facility] Police ([phone]). Patient is currently voluntarily at [facility] and seeking inpatient admission when a bed becomes available. [facility] Frontline Tandem Mill Operator will continue seeking placement. Please contact the House Superintendent International Representative ([phone]) and [facility] Tandem Mill Operator ([phone]) for any needed changes in the Safety Plan. Safety plan has been provided to interdepartmental care team.
[2024-01-09] MEDS: Rosuvastatin 10 MG TAB PO (19:05)
[2024-01-09] MEDS: Estradiol 1 MG TAB 1.5 MG PO (20:17)
[2024-01-09] MEDS: Levothyroxine 50 MCG TAB PO (20:17)
[2024-01-09] MEDS: lamoTRIgine 100 MG TAB 150 MG PO (20:17)
[2024-01-09] MEDS: Magnesium Oxide 400 MG TAB PO (20:17)
--- NOTE | 2024-01-09 23:27 | W.EDPROG ---
Date of service: 01/09/24 Time of Service: 23:27 Medical Decision Making This patient was signed out to me. Please see previous notes for H&P and initial eval. In brief, 48you F medically cleared pending voluntary psych placement for SI. Overnight no behavioral events, appeared to be sleeping comfortably. Did not wake patient for assessment. Signed out to oncoming physician, plan remains as above. Quality:[facility] Health Related Social Needs: No Data to Display Sign Out Sign Out Data: Sign Out Comment: Care signed out to Dr. Jeremiah Garibay, please see my documentation regarding initial ED presentation and course. Plan at signout is to continue to monitor until inpatient treatment can be identified. Psychiatric consult pending. Patient is bringing in her home medications that we do not have these in pharmacy. Other home medications have been ordered. Last updated by Cisco French MD at 01/07/24 17:16 Sign Out Comment: depression, SI, awaiting placement Last updated by Kolby Carter MD at 01/07/24 22:49 Sign Out Comment: 48yo F, SI, medically cleared, home meds in, pending voluntary placement. Last updated by Ioana Mcintyre MD at 01/08/24 06:53 Sign Out Comment: pending voluntary placement for SI/depression, stable during shift Last updated by Taurus Ricardo MD at 01/08/24 16:14 Sign Out Comment: Medically cleared voluntary patient with suicidal ideation. No active behavioral issues last shift. Last updated by Prudencio Sims MD at 01/08/24 21:56 Sign Out Comment: voluntary for SI/depression, pending placement, no issues during shift Last updated by Taurus Ricardo MD at 01/09/24 09:34 Sign Out Comment: voluntary for SI/depression, pending placement, no issues during shift Last updated by Shaw Pelaez MD at 01/09/24 22:31 Sign Out Comment: voluntary SI, pending placement, no behavioral issues overnight Last updated by Ioana Mcintyre MD at 01/10/24 04:51 Discharge Plan Discharge Details Chief Complaint: PsychEval Primary Care Provider: Edie Ellis ED Provider: Ioana Mcintyre Home Meds and New Rx's Prescriptions: No Action naproxen 250 mg tablet 500 mg PO BID PRN Hold Instructions: Hold until PCP f/u clonazepam 1 mg tablet 1 mg PO BID PRN melatonin 10 mg tablet 10 mg PO HS PRN loratadine 10 mg capsule 10 mg PO DAILY bupropion HCl [Wellbutrin SR] 150 mg tablet sustained-release 12 hr 150 mg PO BID cholecalciferol (vitamin D3) 50 mcg (2,000 unit) capsule 50 mcg PO DAILY metformin 500 mg tablet extended release 24 hr 1,000 mg PO BID Trulicity 1.5 mg/0.5 mL pen injector 3 mg subcut QWEEK Hold Instructions: Until f/u with PCP or if blood glucose levels begin to rise Rx Instructions: - on rosuvastatin [Crestor] 5 MG tablet 10 mg PO QPM naratriptan 2.5 mg tablet 2.5 mg PO BID PRN riboflavin (vitamin B2) [Vitamin B-2] 50 MG tablet 200 mg PO BID polyethylene glycol 3350 17 gram/dose Powder 17 g PO DAILY PRN cyanocobalamin (vitamin B-12) 1,000 mcg tablet 1,000 mcg PO DAILY Patient Comments: TAKE ONE TABLET BY MOUTH EVERY DAY duloxetine 30 mg capsule,delayed release(DR/EC) 30 mg PO DAILY Patient Comments: Take 1 capsule by mouth once a day to replace paxil which she will wean off icosapent ethyl [Vascepa] 1 gram capsule 2 g PO BID Patient Comments: TAKE TWO CAPSULES BY MOUTH TWICE A DAY Farxiga 5 mg tablet 5 mg PO DAILY Patient Comments: Take 1 tablet by mouth once a day hydromorphone 2 mg tablet 4 mg PO BID Patient Comments: TAKE TWO TABLETS BY MOUTH TWICE A DAY Entresto 97-103 mg tablet 1 tab PO BID Hold Instructions: Hold until PCP f/u or if SBP is consistently > 120 mmHg Patient Comments: TAKE ONE TABLET BY MOUTH TWICE A DAY pregabalin 100 mg capsule 100 mg PO TID Patient Comments: Take 1 capsule by mouth three times a day metoprolol tartrate 25 mg Tablet 12.5 mg PO BID Qty: 0 0RF magnesium oxide 400 MG tablet 400 mg PO HS Qty: 0 0RF levothyroxine [Synthroid] 25 MCG tablet 50 mcg PO HS omeprazole 20 mg Capsule,Delayed Release(Dr/Ec) 20 mg PO DAILY prochlorperazine maleate 10 mg Tablet 10 mg PO DAILY PRN (Reason: Headache) albuterol sulfate [Ventolin HFA] 90 mcg/actuation Hfa Aerosol Inhaler 2 puff INHALATION QID PRN naloxone [Narcan] 4 mg/actuation [place],Non-Aerosol 1 spray INTRANASAL ONCE PRN Patient Comments: Never used. valacyclovir 1 gram tablet 500 mg PO QHS aspirin 81 mg tablet,delayed release (DR/EC) 81 mg PO DAILY Qty: 14 0RF Rx Instructions: Take 1 daily with a meal for 30 days estradiol 1 mg tablet See Rx Instructions .ROUTE .COMPLEX Patient Comments: TAKE 1 TABLET BY MOUTH EVERY MORNING THEN 2 TABLETS EVERY EVENING Rx Instructions: --> 1mg qAM and 1.5m,g qPM hydrocortisone 2.5 % cream 1 applic topical QID Qty: 30 6RF acetaminophen 500 mg capsule 1,000 mg PO Q8H PRN PRNQty: 30 0RF lamotrigine [Lamictal] 100 mg tablet 150 mg PO HS Patient Comments: TAKE 1 TABLET BY MOUTH EVERY DAY bupropion HCl 150 mg tablet extended release 24 hr 150 mg PO BID Patient Comments: TAKE ONE TABLET BY MOUTH TWICE A DAY WITH MEALS
--- NOTE | 2024-01-10 07:27 | W.EDPROG ---
Date of service: 01/10/24 Time of Service: 07:27 Medical Decision Making Patient still awaiting placement for SI and depression, no events overnight per signout, no acute complaints, will continue to monitor until safe disposition found Quality:SDIA Health Related Social Needs: No Data to Display Sign Out Sign Out Data: Sign Out Comment: Care signed out to Dr. Jeremiah Garibay, please see my documentation regarding initial ED presentation and course. Plan at signout is to continue to monitor until inpatient treatment can be identified. Psychiatric consult pending. Patient is bringing in her home medications that we do not have these in pharmacy. Other home medications have been ordered. Last updated by Cisco French MD at 01/07/24 17:16 Sign Out Comment: depression, SI, awaiting placement Last updated by Kolby Carter MD at 01/07/24 22:49 Sign Out Comment: 48yo F, SI, medically cleared, home meds in, pending voluntary placement. Last updated by Ioana Mcintyre MD at 01/08/24 06:53 Sign Out Comment: pending voluntary placement for SI/depression, stable during shift Last updated by Taurus Ricardo MD at 01/08/24 16:14 Sign Out Comment: Medically cleared voluntary patient with suicidal ideation. No active behavioral issues last shift. Last updated by Prudencio Sims MD at 01/08/24 21:56 Sign Out Comment: voluntary for SI/depression, pending placement, no issues during shift Last updated by Taurus Ricardo MD at 01/09/24 09:34 Sign Out Comment: voluntary for SI/depression, pending placement, no issues during shift Last updated by Shaw Pelaez MD at 01/09/24 22:31 Sign Out Comment: voluntary SI, pending placement, no behavioral issues overnight Last updated by Ioana Mcintyre MD at 01/10/24 04:51 Discharge Plan Discharge Details Chief Complaint: PsychEval Primary Care Provider: Edie Ellis ED Provider: Taurus Ricardo Home Meds and New Rx's Prescriptions: No Action naproxen 250 mg tablet 500 mg PO BID PRN Hold Instructions: Hold until PCP f/u clonazepam 1 mg tablet 1 mg PO BID PRN melatonin 10 mg tablet 10 mg PO HS PRN loratadine 10 mg capsule 10 mg PO DAILY bupropion HCl [Wellbutrin SR] 150 mg tablet sustained-release 12 hr 150 mg PO BID cholecalciferol (vitamin D3) 50 mcg (2,000 unit) capsule 50 mcg PO DAILY metformin 500 mg tablet extended release 24 hr 1,000 mg PO BID Trulicity 1.5 mg/0.5 mL pen injector 3 mg subcut QWEEK Hold Instructions: Until f/u with PCP or if blood glucose levels begin to rise Rx Instructions: - on rosuvastatin [Crestor] 5 MG tablet 10 mg PO QPM naratriptan 2.5 mg tablet 2.5 mg PO BID PRN riboflavin (vitamin B2) [Vitamin B-2] 50 MG tablet 200 mg PO BID polyethylene glycol 3350 17 gram/dose Powder 17 g PO DAILY PRN cyanocobalamin (vitamin B-12) 1,000 mcg tablet 1,000 mcg PO DAILY Patient Comments: TAKE ONE TABLET BY MOUTH EVERY DAY duloxetine 30 mg capsule,delayed release(DR/EC) 30 mg PO DAILY Patient Comments: Take 1 capsule by mouth once a day to replace paxil which she will wean off icosapent ethyl [Vascepa] 1 gram capsule 2 g PO BID Patient Comments: TAKE TWO CAPSULES BY MOUTH TWICE A DAY Farxiga 5 mg tablet 5 mg PO DAILY Patient Comments: Take 1 tablet by mouth once a day hydromorphone 2 mg tablet 4 mg PO BID Patient Comments: TAKE TWO TABLETS BY MOUTH TWICE A DAY Entresto 97-103 mg tablet 1 tab PO BID Hold Instructions: Hold until PCP f/u or if SBP is consistently > 120 mmHg Patient Comments: TAKE ONE TABLET BY MOUTH TWICE A DAY pregabalin 100 mg capsule 100 mg PO TID Patient Comments: Take 1 capsule by mouth three times a day metoprolol tartrate 25 mg Tablet 12.5 mg PO BID Qty: 0 0RF magnesium oxide 400 MG tablet 400 mg PO HS Qty: 0 0RF levothyroxine [Synthroid] 25 MCG tablet 50 mcg PO HS omeprazole 20 mg Capsule,Delayed Release(Dr/Ec) 20 mg PO DAILY prochlorperazine maleate 10 mg Tablet 10 mg PO DAILY PRN (Reason: Headache) albuterol sulfate [Ventolin HFA] 90 mcg/actuation Hfa Aerosol Inhaler 2 puff INHALATION QID PRN naloxone [Narcan] 4 mg/actuation [place],Non-Aerosol 1 spray INTRANASAL ONCE PRN Patient Comments: Never used. valacyclovir 1 gram tablet 500 mg PO QHS aspirin 81 mg tablet,delayed release (DR/EC) 81 mg PO DAILY Qty: 14 0RF Rx Instructions: Take 1 daily with a meal for 30 days estradiol 1 mg tablet See Rx Instructions .ROUTE .COMPLEX Patient Comments: TAKE 1 TABLET BY MOUTH EVERY MORNING THEN 2 TABLETS EVERY EVENING Rx Instructions: --> 1mg qAM and 1.5m,g qPM hydrocortisone 2.5 % cream 1 applic topical QID Qty: 30 6RF acetaminophen 500 mg capsule 1,000 mg PO Q8H PRN PRNQty: 30 0RF lamotrigine [Lamictal] 100 mg tablet 150 mg PO HS Patient Comments: TAKE 1 TABLET BY MOUTH EVERY DAY bupropion HCl 150 mg tablet extended release 24 hr 150 mg PO BID Patient Comments: TAKE ONE TABLET BY MOUTH TWICE A DAY WITH MEALS
[2024-01-10 07:42] VITALS: BP 92/64; PULSE 89; RESP 16; TEMP 36.9; O2SAT 95
[2024-01-10] MEDS: Estradiol 1 MG TAB PO (07:49)
[2024-01-10] MEDS: Cyanocobalamin 500 MCG TAB 1000 MCG PO (07:49)
[2024-01-10] MEDS: valACYclovir 500 MG TAB PO (07:49)
[2024-01-10] MEDS: Metoprolol 12.5 MG TAB PO ×2 (07:49→20:41)
[2024-01-10] MEDS: buPROPion-XL 150 MG TABCR PO ×2 (07:49→18:11)
[2024-01-10] MEDS: Pregabalin 100 MG CAP PO ×3 (07:50→20:40)
[2024-01-10] MEDS: metFORMIN C.R. 500 MG TABCR 1000 MG PO ×2 (07:50→18:11)
[2024-01-10] MEDS: DULoxetine 30 MG CAP PO (07:50)
[2024-01-10] MEDS: Loratidine 10 MG TAB PO (07:50)
[2024-01-10] MEDS: Cholecalciferol (Vitamin D3) 1,000 UNIT TAB 2000 UNITS PO (07:50)
[2024-01-10] MEDS: Omeprazole 20 MG CAPCR PO (07:50)
[2024-01-10] MEDS: HYDROmorphone 4 MG TAB PO ×2 (08:08→20:37)
[2024-01-10] MEDS: Naproxen 500 MG TAB PO (14:54)
--- NOTE | 2024-01-10 15:42 | PDOC.CMSAFE ---
Date of service: 01/10/24 Time of Service: 15:42 Care Management Safety Plan Status Status: Voluntary Reason for Wait Reason for Wait: Inpatient Admission Safety Plan Safety Plan: VOLUNTARY FOR INPATIENT PSYCHIATRIC STABILIZATION.? Patient is appropriate in all interactions since arriving at [facility]; Pt has demonstrated appropriate coping and communication skills, has articulated his or her needs and concerns and is fully engaged during staff interactions. Safety plan has been established with patient, and care team, to adhere to patient goals, identify restrictions based on behavioral status, address nutrition, and determine allowed personal belongings, tools for hygiene and personal care. Determine level of activity including ambulation, level of supervision, visitors, and determine privileges based on behaviors and level of engagement by pt. SAFETY PLAN: 1. Will remain on suicide precautions, in paper clothes 2. Will remain in Zone B under direct supervision of one-on-one staff at all times provided by [employer]; [employer], [employer] kindergarten tutor. 3. May have paper cups, plates, finger foods as well as a cardboard spoon with which to eat meals. 4. Follow [facility] Management of the Admitted Behavioral Health Patient policy. 5. Shower available in Zone B without restriction. 6. Personal belongings-soft items permitted at RN discretion. 7. Visitors-family may visit at nursing's discretion 8. Activities: soft cart items approved per RN discretion. 9.? Bathroom available in Zone B without restriction. 10. Phone: limited to [facility] cordless phone at RN discretion. Due to VOLUNTARY status, if patient wishes to leave [facility], staff will contact [facility] Crisis Screener ([phone]) and On-Call Concierge Receptionist ([phone]) as soon as possible. In the event of elopement, notify [facility] Police ([phone]). Patient is currently voluntarily at [facility] and seeking inpatient admission when a bed becomes available. [facility] Frontline Grab Jack Man will continue seeking placement. Please contact the [employer] Concierge Receptionist ([phone]) and [facility] Grab Jack Man ([phone]) for any needed changes in the Safety Plan. Safety plan has been provided to interdepartmental care team.
--- NOTE | 2024-01-10 16:20 | PDOC.MHPN2 ---
Date of service: 01/10/24 Time of Service: 09:40 PHQ-9 Over the last 2 weeks, how often have you been bothered by any of the following problems? 1. Little interest or pleasure in doing things: nearly every day 2. Feeling down, depressed, or hopeless: nearly every day 3. Trouble falling or staying asleep, or sleeping too much: nearly every day 4. Feeling tired or having little energy: nearly every day 5. Poor appetite or overeating: nearly every day 6. Feeling bad about yourself - or that you are a failure or have let yourself and your family down: nearly every day 7. Trouble concentrating on things, such as reading the newspaper or watching television: nearly every day 8. Moving or speaking so slowly that other people could have noticed? - Or the opposite - being so fidgety or restless that you have been moving around a lot more than usual: several days 9. Thoughts that you would be better off or of hurting yourself in some way: nearly every day Total score: 25 Source: Developed by Drs. Russell Early, Jennifer Armstrong, Jaydon Friedman and colleagues, with an educational amadeo from [employer]. Suicide Severity Rate CSSRS Have you wished you were or wished you could go to sleep and not wake up?: Yes Have you actually had any thoughts of killing yourself?: Yes CSSRS2 Have you been thinking about how you might do this?: Yes Have you had these thoughts and had some intention of acting on them?: Yes Have you started to work out or worked out the details of how to kill yourself? Do you intend to carry out this plan?: Yes CSSRS3 Have you ever done anything, started to do anything or prepared to do anything to end your life?: Yes CSSRS4 Was this within the past three months?: Yes Screening Score Total Score: 8 Screening: Positive Mental Health Emergency Note Release HS release signed:: Yes Reason for Visit reassessment for voluntary placement due to endorsing SI/ Depression In the last 2 weeks has the pt presented for ES prior to today?: Yes, presented at [facility] ED Non Suicidal Self Injury Current: No Safety Risk/Harm to Self or Others Current Ideation to Harm Self or Others: Yes to self. Intent: yes, has intent. Plan: yes,has a plan. History of suicide attempt: yes,history of suicide attempt reported. Details of previous suicide attempt: attempt 12/30/23 Asssessment/Mental Status Appearance: Unremarkable Attitude: Cooperative Behavior: Unremarkable Speech: Normal and Soft Affect: Cogruent with mood Mood: Sad and Depressed Thought process: Goal directed Hallucinations: No evidence Delusions: No evidence Attention: Unremarkable Perception: Not impaired Orientation: Fully orientated Memory: Intact Insight: Fair Judgement: Fair Neurovegetative Symptoms Sleep: Increase Appetitie: Decrease Interests: Decrease Energy: Decrease Libido: Not applicable Substance Use: Have you used substances in the last 7 days?: No Impression Client is a 48 year old female presenting at [facility] for reassessment awaiting voluntary admission at [facility] ED. Client orientated across all spheres, denies HI, reported SI stated intent 5-6 on Likert scale, Speech soft, normal rate and rhythm, WNL gait and posture. No evidence of thought dx. Client reported no changes since last assessment, indicated ongoing SI and elevated depression i.e., hopelessness, worthlessness, fatigue, negative self image and low motivation. Client continues to be amendable to voluntary placement. Plan/Disposition Recommended Disposition: Hospitalization facilities contacted. Plan: awaiting voluntary placement [facility]- Stated to check in tomorrow WC decliend BR decliend due to medical complexity and continuity in treatment based of [facility] stay [facility] no capacity Reports/communication Outcome discussed with: ED/Personnel (Dr. Ricardo, RN Aurea )
[2024-01-10] MEDS: Acetaminophen 500 MG TAB 1000 MG PO (18:13)
[2024-01-10] MEDS: clonazePAM 0.5 MG TAB 1 MG PO (19:45)
[2024-01-10] MEDS: Magnesium Oxide 400 MG TAB PO (20:39)
[2024-01-10] MEDS: Estradiol 1 MG TAB 1.5 MG PO (20:39)
[2024-01-10] MEDS: lamoTRIgine 100 MG TAB 150 MG PO (20:40)
[2024-01-10] MEDS: Levothyroxine 50 MCG TAB PO (20:40)
[2024-01-10] MEDS: Rosuvastatin 10 MG TAB PO (20:41)
--- NOTE | 2024-01-11 00:03 | ED.PROG_ITS ---
Date of service: 01/10/24 Time of Service: 23:30 Medical Decision Making This patient was signed out to me. Please see previous notes for H&P and initial eval. In brief, 48yo F presenting with SI, medically cleared, pending voluntary psychiatric placement. Overnight no acute behavioral events. Did not wake patient for evaluation. Signed out to oncoming physician, plan remains as above. Quality:[facility] Health Related Social Needs: No Data to Display Sign Out Sign Out Data: Sign Out Comment: Care signed out to Dr. Jeremiah Garibay, please see my documentation regarding initial ED presentation and course. Plan at signout is to continue to monitor until inpatient treatment can be identified. Psychiatric consult pending. Patient is bringing in her home medications that we do not have these in pharmacy. Other home medications have been ordered. Last updated by Cisco French MD at 01/07/24 17:16 Sign Out Comment: Still waiting for placement for SI is voluntary, no issues during shift Ordered her home triptan medication for [place] Last updated by Shaw Pelaez MD at 01/10/24 21:36 Sign Out Comment: 48F, SI, voluntary, medically cleared, pending placement. Last updated by Ioana Mcintyre MD at 01/11/24 06:12 Sign Out Comment: depression, SI, awaiting placement Last updated by Kolby Carter MD at 01/07/24 22:49 Sign Out Comment: 48yo F, SI, medically cleared, home meds in, pending voluntary placement. Last updated by Ioana Mcintyre MD at 01/08/24 06:53 Sign Out Comment: pending voluntary placement for SI/depression, stable during shift Last updated by Taurus Ricardo MD at 01/08/24 16:14 Sign Out Comment: Medically cleared voluntary patient with suicidal ideation. No active behavioral issues last shift. Last updated by Prudencio Sims MD at 01/08/24 21:56 Sign Out Comment: voluntary for SI/depression, pending placement, no issues during shift Last updated by Taurus Ricardo MD at 01/09/24 09:34 Sign Out Comment: voluntary for SI/depression, pending placement, no issues during shift Last updated by Shaw Pelaez MD at 01/09/24 22:31 Sign Out Comment: voluntary SI, pending placement, no behavioral issues overnight Last updated by Ioana Mcintyre MD at 01/10/24 04:51 Sign Out Comment: Still waiting for placement for SI is voluntary, no issues during shift Last updated by Taurus Ricardo MD at 01/10/24 15:42 Discharge Plan Discharge Details Chief Complaint: PsychEval Primary Care Provider: Edie Ellis ED Provider: Ioana Mcintyre Home Meds and New Rx's Prescriptions: No Action naproxen 250 mg tablet 500 mg PO BID PRN Hold Instructions: Hold until PCP f/u clonazepam 1 mg tablet 1 mg PO BID PRN melatonin 10 mg tablet 10 mg PO HS PRN loratadine 10 mg capsule 10 mg PO DAILY bupropion HCl [Wellbutrin SR] 150 mg tablet sustained-release 12 hr 150 mg PO BID cholecalciferol (vitamin D3) 50 mcg (2,000 unit) capsule 50 mcg PO DAILY metformin 500 mg tablet extended release 24 hr 1,000 mg PO BID Trulicity 1.5 mg/0.5 mL pen injector 3 mg subcut QWEEK Hold Instructions: Until f/u with PCP or if blood glucose levels begin to rise Rx Instructions: - on rosuvastatin [Crestor] 5 MG tablet 10 mg PO QPM naratriptan 2.5 mg tablet 2.5 mg PO BID PRN riboflavin (vitamin B2) [Vitamin B-2] 50 MG tablet 200 mg PO BID polyethylene glycol 3350 17 gram/dose Powder 17 g PO DAILY PRN cyanocobalamin (vitamin B-12) 1,000 mcg tablet 1,000 mcg PO DAILY Patient Comments: TAKE ONE TABLET BY MOUTH EVERY DAY duloxetine 30 mg capsule,delayed release(DR/EC) 30 mg PO DAILY Patient Comments: Take 1 capsule by mouth once a day to replace paxil which she will wean off icosapent ethyl [Vascepa] 1 gram capsule 2 g PO BID Patient Comments: TAKE TWO CAPSULES BY MOUTH TWICE A DAY Farxiga 5 mg tablet 5 mg PO DAILY Patient Comments: Take 1 tablet by mouth once a day hydromorphone 2 mg tablet 4 mg PO BID Patient Comments: TAKE TWO TABLETS BY MOUTH TWICE A DAY Entresto 97-103 mg tablet 1 tab PO BID Hold Instructions: Hold until PCP f/u or if SBP is consistently > 120 mmHg Patient Comments: TAKE ONE TABLET BY MOUTH TWICE A DAY pregabalin 100 mg capsule 100 mg PO TID Patient Comments: Take 1 capsule by mouth three times a day metoprolol tartrate 25 mg Tablet 12.5 mg PO BID Qty: 0 0RF magnesium oxide 400 MG tablet 400 mg PO HS Qty: 0 0RF levothyroxine [Synthroid] 25 MCG tablet 50 mcg PO HS omeprazole 20 mg Capsule,Delayed Release(Dr/Ec) 20 mg PO DAILY prochlorperazine maleate 10 mg Tablet 10 mg PO DAILY PRN (Reason: Headache) albuterol sulfate [Ventolin HFA] 90 mcg/actuation Hfa Aerosol Inhaler 2 puff INHALATION QID PRN naloxone [Narcan] 4 mg/actuation [place],Non-Aerosol 1 spray INTRANASAL ONCE PRN Patient Comments: Never used. valacyclovir 1 gram tablet 500 mg PO QHS aspirin 81 mg tablet,delayed release (DR/EC) 81 mg PO DAILY Qty: 14 0RF Rx Instructions: Take 1 daily with a meal for 30 days estradiol 1 mg tablet See Rx Instructions .ROUTE .COMPLEX Patient Comments: TAKE 1 TABLET BY MOUTH EVERY MORNING THEN 2 TABLETS EVERY EVENING Rx Instructions: --> 1mg qAM and 1.5m,g qPM hydrocortisone 2.5 % cream 1 applic topical QID Qty: 30 6RF acetaminophen 500 mg capsule 1,000 mg PO Q8H PRN PRNQty: 30 0RF lamotrigine [Lamictal] 100 mg tablet 150 mg PO HS Patient Comments: TAKE 1 TABLET BY MOUTH EVERY DAY bupropion HCl 150 mg tablet extended release 24 hr 150 mg PO BID Patient Comments: TAKE ONE TABLET BY MOUTH TWICE A DAY WITH MEALS
--- NOTE | 2024-01-11 07:18 | W.EDPROG ---
Date of service: 01/11/24 Time of Service: 07:18 Medical Decision Making I received signout on this 48-year-old female in the emergency department voluntarily in the setting of suicidal ideation. No active behavioral issues last shift. Patient is pending placement. Will update documentation as clinically warranted and signed patient out to the oncoming evening provider. 5:10 PM No active behavioral issues last shift. Will sign patient out to oncoming evening provider. Quality:SDOH Health Related Social Needs: No Data to Display Sign Out Sign Out Data: Sign Out Comment: Care signed out to Dr. Jeremiah Garibay, please see my documentation regarding initial ED presentation and course. Plan at signout is to continue to monitor until inpatient treatment can be identified. Psychiatric consult pending. Patient is bringing in her home medications that we do not have these in pharmacy. Other home medications have been ordered. Last updated by Cisco French MD at 01/07/24 17:16 Sign Out Comment: Still waiting for placement for SI is voluntary, no issues during shift Ordered her home triptan medication for [place] Last updated by Shaw Pelaez MD at 01/10/24 21:36 Sign Out Comment: 48F, SI, voluntary, medically cleared, pending placement. Last updated by Ioana Mcintyre MD at 01/11/24 06:12 Sign Out Comment: depression, SI, awaiting placement Last updated by Kolby Carter MD at 01/07/24 22:49 Sign Out Comment: 48yo F, SI, medically cleared, home meds in, pending voluntary placement. Last updated by Ioana Mcintyre MD at 01/08/24 06:53 Sign Out Comment: pending voluntary placement for SI/depression, stable during shift Last updated by Taurus Ricardo MD at 01/08/24 16:14 Sign Out Comment: Medically cleared voluntary patient with suicidal ideation. No active behavioral issues last shift. Last updated by Prudencio Sims MD at 01/08/24 21:56 Sign Out Comment: voluntary for SI/depression, pending placement, no issues during shift Last updated by Taurus Ricardo MD at 01/09/24 09:34 Sign Out Comment: voluntary for SI/depression, pending placement, no issues during shift Last updated by Shaw Pelaez MD at 01/09/24 22:31 Sign Out Comment: voluntary SI, pending placement, no behavioral issues overnight Last updated by Ioana Mcnityre MD at 01/10/24 04:51 Sign Out Comment: Still waiting for placement for SI is voluntary, no issues during shift Last updated by Taurus Ricardo MD at 01/10/24 15:42 Discharge Plan Discharge Details Chief Complaint: PsychEval Primary Care Provider: Edie Ellis ED Provider: Prudencio Sims [place] Meds and New Rx's Prescriptions: No Action naproxen 250 mg tablet 500 mg PO BID PRN Hold Instructions: Hold until PCP f/u clonazepam 1 mg tablet 1 mg PO BID PRN melatonin 10 mg tablet 10 mg PO HS PRN loratadine 10 mg capsule 10 mg PO DAILY bupropion HCl [Wellbutrin SR] 150 mg tablet sustained-release 12 hr 150 mg PO BID cholecalciferol (vitamin D3) 50 mcg (2,000 unit) capsule 50 mcg PO DAILY metformin 500 mg tablet extended release 24 hr 1,000 mg PO BID Trulicity 1.5 mg/0.5 mL pen injector 3 mg subcut QWEEK Hold Instructions: Until f/u with PCP or if blood glucose levels begin to rise Rx Instructions: - on rosuvastatin [Crestor] 5 MG tablet 10 mg PO QPM naratriptan 2.5 mg tablet 2.5 mg PO BID PRN riboflavin (vitamin B2) [Vitamin B-2] 50 MG tablet 200 mg PO BID polyethylene glycol 3350 17 gram/dose Powder 17 g PO DAILY PRN cyanocobalamin (vitamin B-12) 1,000 mcg tablet 1,000 mcg PO DAILY Patient Comments: TAKE ONE TABLET BY MOUTH EVERY DAY duloxetine 30 mg capsule,delayed release(DR/EC) 30 mg PO DAILY Patient Comments: Take 1 capsule by mouth once a day to replace paxil which she will wean off icosapent ethyl [Vascepa] 1 gram capsule 2 g PO BID Patient Comments: TAKE TWO CAPSULES BY MOUTH TWICE A DAY Farxiga 5 mg tablet 5 mg PO DAILY Patient Comments: Take 1 tablet by mouth once a day hydromorphone 2 mg tablet 4 mg PO BID Patient Comments: TAKE TWO TABLETS BY MOUTH TWICE A DAY Entresto 97-103 mg tablet 1 tab PO BID Hold Instructions: Hold until PCP f/u or if SBP is consistently > 120 mmHg Patient Comments: TAKE ONE TABLET BY MOUTH TWICE A DAY pregabalin 100 mg capsule 100 mg PO TID Patient Comments: Take 1 capsule by mouth three times a day metoprolol tartrate 25 mg Tablet 12.5 mg PO BID Qty: 0 0RF magnesium oxide 400 MG tablet 400 mg PO HS Qty: 0 0RF levothyroxine [Synthroid] 25 MCG tablet 50 mcg PO HS omeprazole 20 mg Capsule,Delayed Release(Dr/Ec) 20 mg PO DAILY prochlorperazine maleate 10 mg Tablet 10 mg PO DAILY PRN (Reason: Headache) albuterol sulfate [Ventolin HFA] 90 mcg/actuation Hfa Aerosol Inhaler 2 puff INHALATION QID PRN naloxone [Narcan] 4 mg/actuation [place],Non-Aerosol 1 spray INTRANASAL ONCE PRN Patient Comments: Never used. valacyclovir 1 gram tablet 500 mg PO QHS aspirin 81 mg tablet,delayed release (DR/EC) 81 mg PO DAILY Qty: 14 0RF Rx Instructions: Take 1 daily with a meal for 30 days estradiol 1 mg tablet See Rx Instructions .ROUTE .COMPLEX Patient Comments: TAKE 1 TABLET BY MOUTH EVERY MORNING THEN 2 TABLETS EVERY EVENING Rx Instructions: --> 1mg qAM and 1.5m,g qPM hydrocortisone 2.5 % cream 1 applic topical QID Qty: 30 6RF acetaminophen 500 mg capsule 1,000 mg PO Q8H PRN PRNQty: 30 0RF lamotrigine [Lamictal] 100 mg tablet 150 mg PO HS Patient Comments: TAKE 1 TABLET BY MOUTH EVERY DAY bupropion HCl 150 mg tablet extended release 24 hr 150 mg PO BID Patient Comments: TAKE ONE TABLET BY MOUTH TWICE A DAY WITH MEALS
[2024-01-11] MEDS: Estradiol 1 MG TAB PO (07:53)
[2024-01-11] MEDS: buPROPion-XL 150 MG TABCR PO ×2 (07:53→17:31)
[2024-01-11] MEDS: Cholecalciferol (Vitamin D3) 1,000 UNIT TAB 2000 UNITS PO (07:53)
[2024-01-11] MEDS: Loratidine 10 MG TAB PO (07:54)
[2024-01-11] MEDS: metFORMIN C.R. 500 MG TABCR 1000 MG PO ×2 (07:54→17:31)
[2024-01-11] MEDS: Omeprazole 20 MG CAPCR PO (07:54)
[2024-01-11] MEDS: Cyanocobalamin 500 MCG TAB 1000 MCG PO (07:54)
[2024-01-11] MEDS: valACYclovir 500 MG TAB PO (07:54)
[2024-01-11 07:55] VITALS: BP 92/62; PULSE 87; TEMP 36.3; O2SAT 96
[2024-01-11] MEDS: Pregabalin 100 MG CAP PO ×3 (07:55→21:04)
[2024-01-11] MEDS: DULoxetine 30 MG CAP PO (07:55)
[2024-01-11] MEDS: HYDROmorphone 4 MG TAB PO ×2 (08:14→21:03)
[2024-01-11] MEDS: Naproxen 500 MG TAB PO ×2 (12:40→21:02)
[2024-01-11] MEDS: clonazePAM 0.5 MG TAB 1 MG PO ×2 (13:16→21:02)
[2024-01-11 20:50] VITALS: BP 96/65; PULSE 95; RESP 18; TEMP 37.1; O2SAT 96
[2024-01-11] MEDS: lamoTRIgine 100 MG TAB 150 MG PO (21:00)
[2024-01-11] MEDS: Estradiol 1 MG TAB 1.5 MG PO (21:01)
[2024-01-11] MEDS: Rosuvastatin 10 MG TAB PO (21:01)
[2024-01-11] MEDS: Levothyroxine 50 MCG TAB PO (21:03)
[2024-01-11] MEDS: Magnesium Oxide 400 MG TAB PO (21:04)
--- NOTE | 2024-01-11 23:00 | W.EDPROG ---
Date of service: 01/11/24 Time of Service: 23:01 Medical Decision Making Patient still seeking voluntary placement for depression and SI, reported issues during prior shift and currently calm and cooperative. No acute complaints. Will continue to monitor until safe disposition found Quality:SDOH Health Related Social Needs: No Data to Display Sign Out Sign Out Data: Sign Out Comment: Care signed out to Dr. Jeremiah Garibay, please see my documentation regarding initial ED presentation and course. Plan at signout is to continue to monitor until inpatient treatment can be identified. Psychiatric consult pending. Patient is bringing in her home medications that we do not have these in pharmacy. Other home medications have been ordered. Last updated by Cisco French MD at 01/07/24 17:16 Sign Out Comment: Still waiting for placement for SI is voluntary, no issues during shift Ordered her home triptan medication for [place] Last updated by Shaw Pelaez MD at 01/10/24 21:36 Sign Out Comment: 48F, SI, voluntary, medically cleared, pending placement. Last updated by Ioana Mcintyre MD at 01/11/24 06:12 Sign Out Comment: No active behavioral issues last shift. Continues to be voluntary medically cleared in the setting of suicidal ideation. Last updated by Prudencio Sims MD at 01/11/24 17:12 Sign Out Comment: No active behavioral issues during my shift pending voluntary placement for SI medically cleared Last updated by Shaw Pelaez MD at 01/11/24 22:37 Sign Out Comment: depression, SI, awaiting placement Last updated by Kolby Carter MD at 01/07/24 22:49 Sign Out Comment: 48yo F, SI, medically cleared, home meds in, pending voluntary placement. Last updated by Ioana Mcintyre MD at 01/08/24 06:53 Sign Out Comment: pending voluntary placement for SI/depression, stable during shift Last updated by Taurus Ricardo MD at 01/08/24 16:14 Sign Out Comment: Medically cleared voluntary patient with suicidal ideation. No active behavioral issues last shift. Last updated by Prudencio Sims MD at 01/08/24 21:56 Sign Out Comment: voluntary for SI/depression, pending placement, no issues during shift Last updated by Taurus Ricardo MD at 01/09/24 09:34 Sign Out Comment: voluntary for SI/depression, pending placement, no issues during shift Last updated by Shaw Pelaez MD at 01/09/24 22:31 Sign Out Comment: voluntary SI, pending placement, no behavioral issues overnight Last updated by Ioana Mcintyre MD at 01/10/24 04:51 Sign Out Comment: Still waiting for placement for SI is voluntary, no issues during shift Last updated by Taurus Ricardo MD at 01/10/24 15:42 Discharge Plan Discharge Details Chief Complaint: PsychEval Primary Care Provider: Edie Ellis ED Provider: Taurus Ricardo Home Meds and New Rx's Prescriptions: No Action naproxen 250 mg tablet 500 mg PO BID PRN Hold Instructions: Hold until PCP f/u clonazepam 1 mg tablet 1 mg PO BID PRN melatonin 10 mg tablet 10 mg PO HS PRN loratadine 10 mg capsule 10 mg PO DAILY bupropion HCl [Wellbutrin SR] 150 mg tablet sustained-release 12 hr 150 mg PO BID cholecalciferol (vitamin D3) 50 mcg (2,000 unit) capsule 50 mcg PO DAILY metformin 500 mg tablet extended release 24 hr 1,000 mg PO BID Trulicity 1.5 mg/0.5 mL pen injector 3 mg subcut QWEEK Hold Instructions: Until f/u with PCP or if blood glucose levels begin to rise Rx Instructions: - on rosuvastatin [Crestor] 5 MG tablet 10 mg PO QPM naratriptan 2.5 mg tablet 2.5 mg PO BID PRN riboflavin (vitamin B2) [Vitamin B-2] 50 MG tablet 200 mg PO BID polyethylene glycol 3350 17 gram/dose Powder 17 g PO DAILY PRN cyanocobalamin (vitamin B-12) 1,000 mcg tablet 1,000 mcg PO DAILY Patient Comments: TAKE ONE TABLET BY MOUTH EVERY DAY duloxetine 30 mg capsule,delayed release(DR/EC) 30 mg PO DAILY Patient Comments: Take 1 capsule by mouth once a day to replace paxil which she will wean off icosapent ethyl [Vascepa] 1 gram capsule 2 g PO BID Patient Comments: TAKE TWO CAPSULES BY MOUTH TWICE A DAY Farxiga 5 mg tablet 5 mg PO DAILY Patient Comments: Take 1 tablet by mouth once a day hydromorphone 2 mg tablet 4 mg PO BID Patient Comments: TAKE TWO TABLETS BY MOUTH TWICE A DAY Entresto 97-103 mg tablet 1 tab PO BID Hold Instructions: Hold until PCP f/u or if SBP is consistently > 120 mmHg Patient Comments: TAKE ONE TABLET BY MOUTH TWICE A DAY pregabalin 100 mg capsule 100 mg PO TID Patient Comments: Take 1 capsule by mouth three times a day metoprolol tartrate 25 mg Tablet 12.5 mg PO BID Qty: 0 0RF magnesium oxide 400 MG tablet 400 mg PO HS Qty: 0 0RF levothyroxine [Synthroid] 25 MCG tablet 50 mcg PO HS omeprazole 20 mg Capsule,Delayed Release(Dr/Ec) 20 mg PO DAILY prochlorperazine maleate 10 mg Tablet 10 mg PO DAILY PRN (Reason: Headache) albuterol sulfate [Ventolin HFA] 90 mcg/actuation Hfa Aerosol Inhaler 2 puff INHALATION QID PRN naloxone [Narcan] 4 mg/actuation [place],Non-Aerosol 1 spray INTRANASAL ONCE PRN Patient Comments: Never used. valacyclovir 1 gram tablet 500 mg PO QHS aspirin 81 mg tablet,delayed release (DR/EC) 81 mg PO DAILY Qty: 14 0RF Rx Instructions: Take 1 daily with a meal for 30 days estradiol 1 mg tablet See Rx Instructions .ROUTE .COMPLEX Patient Comments: TAKE 1 TABLET BY MOUTH EVERY MORNING THEN 2 TABLETS EVERY EVENING Rx Instructions: --> 1mg qAM and 1.5m,g qPM hydrocortisone 2.5 % cream 1 applic topical QID Qty: 30 6RF acetaminophen 500 mg capsule 1,000 mg PO Q8H PRN PRNQty: 30 0RF lamotrigine [Lamictal] 100 mg tablet 150 mg PO HS Patient Comments: TAKE 1 TABLET BY MOUTH EVERY DAY bupropion HCl 150 mg tablet extended release 24 hr 150 mg PO BID Patient Comments: TAKE ONE TABLET BY MOUTH TWICE A DAY WITH MEALS
[2024-01-12 08:18] VITALS: BP 90/59; PULSE 95; RESP 15; TEMP 35.6; O2SAT 99
[2024-01-12] MEDS: Estradiol 1 MG TAB PO (08:29)
[2024-01-12] MEDS: Cholecalciferol (Vitamin D3) 1,000 UNIT TAB 2000 UNITS PO (08:29)
[2024-01-12] MEDS: buPROPion-XL 150 MG TABCR PO ×2 (08:29→17:24)
[2024-01-12] MEDS: Cyanocobalamin 500 MCG TAB 1000 MCG PO (08:30)
[2024-01-12] MEDS: Pregabalin 100 MG CAP PO ×3 (08:30→21:10)
[2024-01-12] MEDS: valACYclovir 500 MG TAB PO (08:30)
[2024-01-12] MEDS: DULoxetine 30 MG CAP PO (08:30)
[2024-01-12] MEDS: metFORMIN C.R. 500 MG TABCR 1000 MG PO ×2 (08:31→17:24)
[2024-01-12] MEDS: Loratidine 10 MG TAB PO (08:31)
[2024-01-12] MEDS: Omeprazole 20 MG CAPCR PO (08:31)
[2024-01-12] MEDS: HYDROmorphone 4 MG TAB PO ×2 (08:31→21:08)
--- NOTE | 2024-01-12 15:05 | PSYCO_ITS ---
Date of service: 01/12/24 Time of Service: 15:04 Summary Note Psychiatry phone note Received telepsychiatry consult for this patient, reviewed chart and discussed clinical information with CHARLY Delong. Soaping Machine Back Tender and site joined video meeting but unfortunately only audio component is working. Staff member Xochilt Ennis assisted in troubleshooting but unable to get video portion to work at this time. Therefore, consult will be postponed until technical issue resolved. Staff to please contact [facility] center when consult can proceed.
--- NOTE | 2024-01-12 16:33 | PSYCO_ITS ---
Date of service: 01/12/24 Time of Service: 16:29 Summary Note Psychiatry phone note Web Marketing Strategist was informed that the technical issue had hopefully been resolved. Spoke with staff members Yesika and Xochilt, multiple additional attempts were made to join meeting but unfortunately technical issues persist. Xochilt reports that the issue cannot be fixed at the present time. Staff has requested for case to remain in delayed status as further attempts are made to resolve the problem. Staff to please contact [facility] center with updates.
--- NOTE | 2024-01-12 16:59 | CMSP_ITS ---
Care Management Safety Plan Status Status: Voluntary Reason for Wait Reason for Wait: Inpatient Admission Safety Plan Safety Plan: VOLUNTARY FOR INPATIENT PSYCHIATRIC STABILIZATION.? Patient is appropriate in all interactions since arriving at [facility]; Pt has demonstrated appropriate coping and communication skills, has articulated his or her needs and concerns and is fully engaged during staff interactions. Safety plan has been established with patient, and care team, to adhere to patient goals, identify restrictions based on behavioral status, address nutrition, and determine allowed personal belongings, tools for hygiene and personal care. Determine level of activity including ambulation, level of supervision, visitors, and determine privileges based on behaviors and level of engagement by pt. SAFETY PLAN: 1. Will remain on suicide precautions, in paper clothes 2. Will remain in Zone B under direct supervision of one-on-one staff at all times provided by [employer]; YOSELIN, BASE FILLER OPERATOR dehydration unit operator. 3. May have paper cups, plates, finger foods as well as a cardboard spoon with which to eat meals. 4. Follow [facility] Management of the Admitted Behavioral Health Patient policy. 5. Shower available in Zone B without restriction. 6. Personal belongings-soft items permitted at RN discretion. 7. Visitors-family may visit at nursing's discretion 8. Activities: soft cart items approved per RN discretion. 9.? Bathroom available in Zone B without restriction. 10. Phone: limited to [facility] cordless phone at RN discretion. Due to VOLUNTARY status, if patient wishes to leave [facility], staff will contact [facility] Crisis Screener ([phone]) and On-Call Bull Gang Supervisor ([phone]) as soon as possible. In the event of elopement, notify [facility] Police ([phone]). Patient is currently voluntarily at [facility] and seeking inpatient admission when a bed becomes available. [facility] Frontline Diesel Engine Pipe Fitter will continue seeking placement. Please contact the Reuse Technician Bull Gang Supervisor ([phone]) and [facility] Diesel Engine Pipe Fitter ([phone]) for any needed changes in the Safety Plan. Safety plan has been provided to interdepartmental care team.
--- NOTE | 2024-01-12 16:59 | PDOC.CMSAFE ---
Care Management Safety Plan Status Status: Voluntary Reason for Wait Reason for Wait: Inpatient Admission Safety Plan Safety Plan: VOLUNTARY FOR INPATIENT PSYCHIATRIC STABILIZATION.? Patient is appropriate in all interactions since arriving at [facility]; Pt has demonstrated appropriate coping and communication skills, has articulated his or her needs and concerns and is fully engaged during staff interactions. Safety plan has been established with patient, and care team, to adhere to patient goals, identify restrictions based on behavioral status, address nutrition, and determine allowed personal belongings, tools for hygiene and personal care. Determine level of activity including ambulation, level of supervision, visitors, and determine privileges based on behaviors and level of engagement by pt. SAFETY PLAN: 1. Will remain on suicide precautions, in paper clothes 2. Will remain in Zone B under direct supervision of one-on-one staff at all times provided by [employer]; YOSELIN, PLATE AND WELD INSPECTOR oxidation operator. 3. May have paper cups, plates, finger foods as well as a cardboard spoon with which to eat meals. 4. Follow [facility] Management of the Admitted Behavioral Health Patient policy. 5. Shower available in Zone B without restriction. 6. Personal belongings-soft items permitted at RN discretion. 7. Visitors-family may visit at nursing's discretion 8. Activities: soft cart items approved per RN discretion. 9.? Bathroom available in Zone B without restriction. 10. Phone: limited to [facility] cordless phone at RN discretion. Due to VOLUNTARY status, if patient wishes to leave [facility], staff will contact [facility] Crisis Screener ([phone]) and On-Call Baby Sitter ([phone]) as soon as possible. In the event of elopement, notify [facility] Police ([phone]). Patient is currently voluntarily at [facility] and seeking inpatient admission when a bed becomes available. [facility] Frontline House Wirer Helper will continue seeking placement. Please contact the Lead Advisor Baby Sitter ([phone]) and [facility] House Wirer Helper ([phone]) for any needed changes in the Safety Plan. Safety plan has been provided to interdepartmental care team.
[2024-01-12] MEDS: Docusate Sodium 100 MG CAP PO (17:30)
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
--- NOTE | 2024-01-12 20:35 | W.EDPROG ---
Date of service: 01/12/24 Time of Service: 20:35 Medical Decision Making Patient with no acute needs during my shift today. Patient here voluntarily for depression and suicidality awaiting placement in a psychiatric treatment facility that has capacity and capability to care for her. Quality:[facility] Health Related Social Needs: No Data to Display Sign Out Sign Out Data: Sign Out Comment: Care signed out to Dr. Jeremiah Garibay, please see my documentation regarding initial ED presentation and course. Plan at signout is to continue to monitor until inpatient treatment can be identified. Psychiatric consult pending. Patient is bringing in her home medications that we do not have these in pharmacy. Other home medications have been ordered. Last updated by Cisco French MD at 01/07/24 17:16 Sign Out Comment: Still waiting for placement for SI is voluntary, no issues during shift Ordered her home triptan medication for [place] Last updated by Shaw Pelaez MD at 01/10/24 21:36 Sign Out Comment: 48F, SI, voluntary, medically cleared, pending placement. Last updated by Ioana Mcintyre MD at 01/11/24 06:12 Sign Out Comment: No active behavioral issues last shift. Continues to be voluntary medically cleared in the setting of suicidal ideation. Last updated by Prudencio Sims MD at 01/11/24 17:12 Sign Out Comment: No active behavioral issues during my shift pending voluntary placement for SI medically cleared Last updated by Shaw Pelaez MD at 01/11/24 22:37 Sign Out Comment: Patient seeking voluntary placement for depression and SI Last updated by Taurus Ricardo MD at 01/11/24 23:04 Sign Out Comment: depression, SI, awaiting placement Last updated by Kolby Carter MD at 01/07/24 22:49 Sign Out Comment: 48yo F, SI, medically cleared, home meds in, pending voluntary placement. Last updated by Ioana Mcintyre MD at 01/08/24 06:53 Sign Out Comment: pending voluntary placement for SI/depression, stable during shift Last updated by Taurus Ricardo MD at 01/08/24 16:14 Sign Out Comment: Medically cleared voluntary patient with suicidal ideation. No active behavioral issues last shift. Last updated by Prudencio Sims MD at 01/08/24 21:56 Sign Out Comment: voluntary for SI/depression, pending placement, no issues during shift Last updated by Taurus Ricardo MD at 01/09/24 09:34 Sign Out Comment: voluntary for SI/depression, pending placement, no issues during shift Last updated by Shaw Pelaez MD at 01/09/24 22:31 Sign Out Comment: voluntary SI, pending placement, no behavioral issues overnight Last updated by Ioana Mcintyre MD at 01/10/24 04:51 Sign Out Comment: Still waiting for placement for SI is voluntary, no issues during shift Last updated by Taurus Ricardo MD at 01/10/24 15:42 Discharge Plan Discharge Details Chief Complaint: PsychEval Primary Care Provider: Edie Ellis ED Provider: Cisco French Home Meds and New Rx's Prescriptions: No Action naproxen 250 mg tablet 500 mg PO BID PRN Hold Instructions: Hold until PCP f/u clonazepam 1 mg tablet 1 mg PO BID PRN melatonin 10 mg tablet 10 mg PO HS PRN loratadine 10 mg capsule 10 mg PO DAILY bupropion HCl [Wellbutrin SR] 150 mg tablet sustained-release 12 hr 150 mg PO BID cholecalciferol (vitamin D3) 50 mcg (2,000 unit) capsule 50 mcg PO DAILY metformin 500 mg tablet extended release 24 hr 1,000 mg PO BID Trulicity 1.5 mg/0.5 mL pen injector 3 mg subcut QWEEK Hold Instructions: Until f/u with PCP or if blood glucose levels begin to rise Rx Instructions: - on rosuvastatin [Crestor] 5 MG tablet 10 mg PO QPM naratriptan 2.5 mg tablet 2.5 mg PO BID PRN riboflavin (vitamin B2) [Vitamin B-2] 50 MG tablet 200 mg PO BID polyethylene glycol 3350 17 gram/dose Powder 17 g PO DAILY PRN cyanocobalamin (vitamin B-12) 1,000 mcg tablet 1,000 mcg PO DAILY Patient Comments: TAKE ONE TABLET BY MOUTH EVERY DAY duloxetine 30 mg capsule,delayed release(DR/EC) 30 mg PO DAILY Patient Comments: Take 1 capsule by mouth once a day to replace paxil which she will wean off icosapent ethyl [Vascepa] 1 gram capsule 2 g PO BID Patient Comments: TAKE TWO CAPSULES BY MOUTH TWICE A DAY Farxiga 5 mg tablet 5 mg PO DAILY Patient Comments: Take 1 tablet by mouth once a day hydromorphone 2 mg tablet 4 mg PO BID Patient Comments: TAKE TWO TABLETS BY MOUTH TWICE A DAY Entresto 97-103 mg tablet 1 tab PO BID Hold Instructions: Hold until PCP f/u or if SBP is consistently > 120 mmHg Patient Comments: TAKE ONE TABLET BY MOUTH TWICE A DAY pregabalin 100 mg capsule 100 mg PO TID Patient Comments: Take 1 capsule by mouth three times a day metoprolol tartrate 25 mg Tablet 12.5 mg PO BID Qty: 0 0RF magnesium oxide 400 MG tablet 400 mg PO HS Qty: 0 0RF levothyroxine [Synthroid] 25 MCG tablet 50 mcg PO HS omeprazole 20 mg Capsule,Delayed Release(Dr/Ec) 20 mg PO DAILY prochlorperazine maleate 10 mg Tablet 10 mg PO DAILY PRN (Reason: Headache) albuterol sulfate [Ventolin HFA] 90 mcg/actuation Hfa Aerosol Inhaler 2 puff INHALATION QID PRN naloxone [Narcan] 4 mg/actuation [place],Non-Aerosol 1 spray INTRANASAL ONCE PRN Patient Comments: Never used. valacyclovir 1 gram tablet 500 mg PO QHS aspirin 81 mg tablet,delayed release (DR/EC) 81 mg PO DAILY Qty: 14 0RF Rx Instructions: Take 1 daily with a meal for 30 days estradiol 1 mg tablet See Rx Instructions .ROUTE .COMPLEX Patient Comments: TAKE 1 TABLET BY MOUTH EVERY MORNING THEN 2 TABLETS EVERY EVENING Rx Instructions: --> 1mg qAM and 1.5m,g qPM hydrocortisone 2.5 % cream 1 applic topical QID Qty: 30 6RF acetaminophen 500 mg capsule 1,000 mg PO Q8H PRN PRNQty: 30 0RF lamotrigine [Lamictal] 100 mg tablet 150 mg PO HS Patient Comments: TAKE 1 TABLET BY MOUTH EVERY DAY bupropion HCl 150 mg tablet extended release 24 hr 150 mg PO BID Patient Comments: TAKE ONE TABLET BY MOUTH TWICE A DAY WITH MEALS
[2024-01-12] MEDS: Estradiol 1 MG TAB 1.5 MG PO (21:08)
[2024-01-12] MEDS: lamoTRIgine 100 MG TAB 150 MG PO (21:09)
[2024-01-12] MEDS: Magnesium Oxide 400 MG TAB PO (21:09)
[2024-01-12] MEDS: Metoprolol 12.5 MG TAB PO (21:09)
[2024-01-12] MEDS: Levothyroxine 50 MCG TAB PO (21:09)
[2024-01-12] MEDS: Rosuvastatin 10 MG TAB PO (21:10)
--- NOTE | 2024-01-13 03:27 | ED.PROG_ITS ---
Date of service: 01/12/24 Time of Service: 20:00 Medical Decision Making Quality:[facility] Health Related Social Needs: No Data to Display Narrative This is a 48-year-old female who is awaiting voluntary placement for suicidal ideation. I have received signout. 01/13/24 at 3:21 AM the patient is awake and going to the bathroom. She has no complaints. Sign Out Sign Out Data: Sign Out Comment: Care signed out to Dr. Jeremiah Garibay, please see my documentation regarding initial ED presentation and course. Plan at signout is to continue to monitor until inpatient treatment can be identified. Psychiatric consult pending. Patient is bringing in her home medications that we do not have these in pharmacy. Other home medications have been ordered. Last updated by Cisco French MD at 01/07/24 17:16 Sign Out Comment: Still waiting for placement for SI is voluntary, no issues du ring shift Ordered her home triptan medication for [place] Last updated by Shaw Pelaez MD at 01/10/24 21:36 Sign Out Comment: 48F, SI, voluntary, medically cleared, pending placement. Last updated by Ioana Mcintyre MD at 01/11/24 06:12 Sign Out Comment: No active behavioral issues last shift. Continues to be vol untary medically cleared in the setting of suicidal ideation. Last updated by Prudencio Sims MD at 01/11/24 17:12 Sign Out Comment: No active behavioral issues during my shift pending voluntary placement for SI medically cleared Last updated by Shaw Pelaez MD at 01/11/24 22:37 Sign Out Comment: Patient seeking voluntary placement for depression and SI Last updated by Taurus Ricardo MD at 01/11/24 23:04 Sign Out Comment: Patient here seeking voluntary placement for depression and SI. No update on inpatient bed availability. Last updated by Cisco French MD at 01/12/24 20:37 Sign Out Comment: depression, SI, awaiting placement Last updated by Kolby Carter MD at 01/07/24 22:49 Sign Out Comment: 48yo F, SI, medically cleared, home meds in, pending voluntary placement. Last updated by Ioana Mcintyre MD at 01/08/24 06:53 Sign Out Comment: pending voluntary placement for SI/depression, stable during shift Last updated by Taurus Ricardo MD at 01/08/24 16:14 Sign Out Comment: Medically cleared voluntary patient with suicidal ideation. No active behavioral issues last shift. Last updated by Prudencio Sims MD at 01/08/24 21:56 Sign Out Comment: voluntary for SI/depression, pending placement, no issues during shift Last updated by Taurus Ricardo MD at 01/09/24 09:34 Sign Out Comment: voluntary for SI/depression, pending placement, no issues during shift Last updated by Shaw Pelaez MD at 01/09/24 22:31 Sign Out Comment: voluntary SI, pending placement, no behavioral issues overnight Last updated by Ioana Mcintyre MD at 01/10/24 04:51 Sign Out Comment: Still waiting for placement for SI is voluntary, no issues during shift Last updated by Taurus Ricardo MD at 01/10/24 15:42 Discharge Plan Discharge Details Chief Complaint: PsychEval Primary Care Provider: Edie Ellis ED Provider: Isela Salamanca Home Meds and New Rx's Prescriptions: No Action naproxen 250 mg tablet 500 mg PO BID PRN Hold Instructions: Hold until PCP f/u clonazepam 1 mg tablet 1 mg PO BID PRN melatonin 10 mg tablet 10 mg PO HS PRN loratadine 10 mg capsule 10 mg PO DAILY bupropion HCl [Wellbutrin SR] 150 mg tablet sustained-release 12 hr 150 mg PO BID cholecalciferol (vitamin D3) 50 mcg (2,000 unit) capsule 50 mcg PO DAILY metformin 500 mg tablet extended release 24 hr 1,000 mg PO BID Trulicity 1.5 mg/0.5 mL pen injector 3 mg subcut QWEEK Hold Instructions: Until f/u with PCP or if blood glucose levels begin to rise Rx Instructions: - on rosuvastatin [Crestor] 5 MG tablet 10 mg PO QPM naratriptan 2.5 mg tablet 2.5 mg PO BID PRN riboflavin (vitamin B2) [Vitamin B-2] 50 MG tablet 200 mg PO BID polyethylene glycol 3350 17 gram/dose Powder 17 g PO DAILY PRN cyanocobalamin (vitamin B-12) 1,000 mcg tablet 1,000 mcg PO DAILY Patient Comments: TAKE ONE TABLET BY MOUTH EVERY DAY duloxetine 30 mg capsule,delayed release(DR/EC) 30 mg PO DAILY Patient Comments: Take 1 capsule by mouth once a day to replace paxil which she will wean off icosapent ethyl [Vascepa] 1 gram capsule 2 g PO BID Patient Comments: TAKE TWO CAPSULES BY MOUTH TWICE A DAY Farxiga 5 mg tablet 5 mg PO DAILY Patient Comments: Take 1 tablet by mouth once a day hydromorphone 2 mg tablet 4 mg PO BID Patient Comments: TAKE TWO TABLETS BY MOUTH TWICE A DAY Entresto 97-103 mg tablet 1 tab PO BID Hold Instructions: Hold until PCP f/u or if SBP is consistently > 120 mmHg Patient Comments: TAKE ONE TABLET BY MOUTH TWICE A DAY pregabalin 100 mg capsule 100 mg PO TID Patient Comments: Take 1 capsule by mouth three times a day metoprolol tartrate 25 mg Tablet 12.5 mg PO BID Qty: 0 0RF magnesium oxide 400 MG tablet 400 mg PO HS Qty: 0 0RF levothyroxine [Synthroid] 25 MCG tablet 50 mcg PO HS omeprazole 20 mg Capsule,Delayed Release(Dr/Ec) 20 mg PO DAILY prochlorperazine maleate 10 mg Tablet 10 mg PO DAILY PRN (Reason: Headache) albuterol sulfate [Ventolin HFA] 90 mcg/actuation Hfa Aerosol Inhaler 2 puff INHALATION QID PRN naloxone [Narcan] 4 mg/actuation [place],Non-Aerosol 1 spray INTRANASAL ONCE PRN Patient Comments: Never used. valacyclovir 1 gram tablet 500 mg PO QHS aspirin 81 mg tablet,delayed release (DR/EC) 81 mg PO DAILY Qty: 14 0RF Rx Instructions: Take 1 daily with a meal for 30 days estradiol 1 mg tablet See Rx Instructions .ROUTE .COMPLEX Patient Comments: TAKE 1 TABLET BY MOUTH EVERY MORNING THEN 2 TABLETS EVERY EVENING Rx Instructions: --> 1mg qAM and 1.5m,g qPM hydrocortisone 2.5 % cream 1 applic topical QID Qty: 30 6RF acetaminophen 500 mg capsule 1,000 mg PO Q8H PRN PRNQty: 30 0RF lamotrigine [Lamictal] 100 mg tablet 150 mg PO HS Patient Comments: TAKE 1 TABLET BY MOUTH EVERY DAY bupropion HCl 150 mg tablet extended release 24 hr 150 mg PO BID Patient Comments: TAKE ONE TABLET BY MOUTH TWICE A DAY WITH MEALS
[2024-01-13] MEDS: Omeprazole 20 MG CAPCR PO (08:17)
[2024-01-13] MEDS: metFORMIN C.R. 500 MG TABCR 1000 MG PO (08:18)
[2024-01-13] MEDS: Cholecalciferol (Vitamin D3) 1,000 UNIT TAB 2000 UNITS PO (08:18)
[2024-01-13] MEDS: buPROPion-XL 150 MG TABCR PO (08:18)
[2024-01-13] MEDS: Estradiol 1 MG TAB PO (08:19)
[2024-01-13] MEDS: Cyanocobalamin 500 MCG TAB 1000 MCG PO (08:19)
[2024-01-13] MEDS: DULoxetine 30 MG CAP PO (08:19)
[2024-01-13] MEDS: valACYclovir 500 MG TAB PO (08:20)
[2024-01-13] MEDS: Pregabalin 100 MG CAP PO (08:20)
[2024-01-13] MEDS: Loratidine 10 MG TAB PO (08:20)
[2024-01-13] MEDS: HYDROmorphone 4 MG TAB PO (08:34)
--- NOTE | 2024-01-13 08:44 | ED.PROG_ITS ---
Date of service: 01/13/24 Time of Service: 08:45 Medical Decision Making I received signout on this 48-year-old female in the emergency department voluntarily in the setting of suicidal ideation. No active behavioral issues last shift. Patient is pending placement. Her home metoprolol and REEMA/ARB have been held given her soft blood pressure this morning. Will update documentation as clinically warranted and signed patient out to the [facility] [place]. 11:30 AM Prior psychiatry consultation last night advised changing patient's bupropion XL to 300 mg daily. 12:18 PM Patient was accepted to [facility]. I spoke with [facility] [employer] [place]. No need for a doc to doc. patient was reportedly feeling lightheaded and anxious with some shortness of breath. Her heart rate was 91 she was satting 95% on room air. Blood pressure was 111/75. Will order her hydroxyzine. Patient was accepted to [facility] by Rosa Lockwood. 12:41 PM I signed paperwork to have the patient transferred to [facility]. Quality:[facility] Health Related Social Needs: No Data to Display Sign Out Sign Out Data: Sign Out Comment: Care signed out to Dr. Jeremiah Garibay, please see my documentation regarding initial ED presentation and course. Plan at signout is to continue to monitor until inpatient treatment can be identified. Psychiatric consult pending. Patient is bringing in her home medications that we do not have these in pharmacy. Other home medications have been ordered. Last updated by Cisco French MD at 01/07/24 17:16 Sign Out Comment: Still waiting for placement for SI is voluntary, no issues during shift Ordered her home triptan medication for [place] Last updated by Shaw Pelaez MD at 01/10/24 21:36 Sign Out Comment: 48F, SI, voluntary, medically cleared, pending placement. Last updated by Ioana Mcintyre MD at 01/11/24 06:12 Sign Out Comment: No active behavioral issues last shift. Continues to be voluntary medically cleared in the setting of suicidal ideation. Last updated by Prudencio Sims MD at 01/11/24 17:12 Sign Out Comment: No active behavioral issues during my shift pending voluntary placement for SI medically cleared Last updated by Shaw Pelaez MD at 01/11/24 22:37 Sign Out Comment: Patient seeking voluntary placement for depression and SI Last updated by Taurus Ricardo MD at 01/11/24 23:04 Sign Out Comment: Patient here seeking voluntary placement for depression and SI. No update on inpatient bed availability. Last updated by Cisco French MD at 01/12/24 20:37 Sign Out Comment: depression, SI, awaiting placement Last updated by Kolby Carter MD at 01/07/24 22:49 Sign Out Comment: 48yo F, SI, medically cleared, home meds in, pending voluntary placement. Last updated by Ioana Mcintyre MD at 01/08/24 06:53 Sign Out Comment: pending voluntary placement for SI/depression, stable during shift Last updated by Taurus Ricardo MD at 01/08/24 16:14 Sign Out Comment: Medically cleared voluntary patient with suicidal ideation. No active behavioral issues last shift. Last updated by Prudencio Sims MD at 01/08/24 21:56 Sign Out Comment: voluntary for SI/depression, pending placement, no issues during shift Last updated by Taurus Ricardo MD at 01/09/24 09:34 Sign Out Comment: voluntary for SI/depression, pending placement, no issues during shift Last updated by Shaw Pelaez MD at 01/09/24 22:31 Sign Out Comment: voluntary SI, pending placement, no behavioral issues overnight Last updated by Ioana Mcintyre MD at 01/10/24 04:51 Sign Out Comment: Still waiting for placement for SI is voluntary, no issues during shift Last updated by Taurus Ricardo MD at 01/10/24 15:42 Discharge Plan Discharge Details Chief Complaint: PsychEval Primary Care Provider: Edie Ellis ED Provider: Prudencio Sims Home Meds and New Rx's Prescriptions: No Action naproxen 250 mg tablet 500 mg PO BID PRN Hold Instructions: Hold until PCP f/u clonazepam 1 mg tablet 1 mg PO BID PRN melatonin 10 mg tablet 10 mg PO HS PRN loratadine 10 mg capsule 10 mg PO DAILY bupropion HCl [Wellbutrin SR] 150 mg tablet sustained-release 12 hr 150 mg PO BID cholecalciferol (vitamin D3) 50 mcg (2,000 unit) capsule 50 mcg PO DAILY metformin 500 mg tablet extended release 24 hr 1,000 mg PO BID Trulicity 1.5 mg/0.5 mL pen injector 3 mg subcut QWEEK Hold Instructions: Until f/u with PCP or if blood glucose levels begin to rise Rx Instructions: - on rosuvastatin [Crestor] 5 MG tablet 10 mg PO QPM naratriptan 2.5 mg tablet 2.5 mg PO BID PRN riboflavin (vitamin B2) [Vitamin B-2] 50 MG tablet 200 mg PO BID polyethylene glycol 3350 17 gram/dose Powder 17 g PO DAILY PRN cyanocobalamin (vitamin B-12) 1,000 mcg tablet 1,000 mcg PO DAILY Patient Comments: TAKE ONE TABLET BY MOUTH EVERY DAY duloxetine 30 mg capsule,delayed release(DR/EC) 30 mg PO DAILY Patient Comments: Take 1 capsule by mouth once a day to replace paxil which she will wean off icosapent ethyl [Vascepa] 1 gram capsule 2 g PO BID Patient Comments: TAKE TWO CAPSULES BY MOUTH TWICE A DAY Farxiga 5 mg tablet 5 mg PO DAILY Patient Comments: Take 1 tablet by mouth once a day hydromorphone 2 mg tablet 4 mg PO BID Patient Comments: TAKE TWO TABLETS BY MOUTH TWICE A DAY Entresto 97-103 mg tablet 1 tab PO BID Hold Instructions: Hold until PCP f/u or if SBP is consistently > 120 mmHg Patient Comments: TAKE ONE TABLET BY MOUTH TWICE A DAY pregabalin 100 mg capsule 100 mg PO TID Patient Comments: Take 1 capsule by mouth three times a day metoprolol tartrate 25 mg Tablet 12.5 mg PO BID Qty: 0 0RF magnesium oxide 400 MG tablet 400 mg PO HS Qty: 0 0RF levothyroxine [Synthroid] 25 MCG tablet 50 mcg PO HS omeprazole 20 mg Capsule,Delayed Release(Dr/Ec) 20 mg PO DAILY prochlorperazine maleate 10 mg Tablet 10 mg PO DAILY PRN (Reason: Headache) albuterol sulfate [Ventolin HFA] 90 mcg/actuation Hfa Aerosol Inhaler 2 puff INHALATION QID PRN naloxone [Narcan] 4 mg/actuation [place],Non-Aerosol 1 spray INTRANASAL ONCE PRN Patient Comments: Never used. valacyclovir 1 gram tablet 500 mg PO QHS aspirin 81 mg tablet,delayed release (DR/EC) 81 mg PO DAILY Qty: 14 0RF Rx Instructions: Take 1 daily with a meal for 30 days estradiol 1 mg tablet See Rx Instructions .ROUTE .COMPLEX Patient Comments: TAKE 1 TABLET BY MOUTH EVERY MORNING THEN 2 TABLETS EVERY EVENING Rx Instructions: --> 1mg qAM and 1.5m,g qPM hydrocortisone 2.5 % cream 1 applic topical QID Qty: 30 6RF acetaminophen 500 mg capsule 1,000 mg PO Q8H PRN PRNQty: 30 0RF lamotrigine [Lamictal] 100 mg tablet 150 mg PO HS Patient Comments: TAKE 1 TABLET BY MOUTH EVERY DAY bupropion HCl 150 mg tablet extended release 24 hr 150 mg PO BID Patient Comments: TAKE ONE TABLET BY MOUTH TWICE A DAY WITH MEALS
[2024-01-13 11:58] VITALS: BP 111/75; PULSE 91; RESP 18; O2SAT 95
[2024-01-13] MEDS: hydrOXYzine HCL 25 MG TAB PO (12:46)
[2024-01-13] MEDS: Prochlorperazine 10 MG TAB PO (12:46)
--- NOTE | 2024-01-13 12:53 | MHPN_ITS ---
Date of service: 01/13/24 Time of Service: 12:53 Mental Health Emergency Note Release [facility] release signed:: Yes Reason for Visit Client presented into [facility] due to SI on 01.07.24 seeking voluntary inpatient care. Client recently left [facility], she believed that she received all the services that she needed. The client is known to the agency, client was screened and assessed. Client was reassessed today while at [facility] due to suicidal ideation which she is denied experiencing currently however, reported that this was because I feel safe here and does not have the access she would at home. She stated I wish I was not here but denied active intent or plan. In the last 2 weeks has the pt presented for ES prior to today?: Yes, presented at [facility] ED Client Information Client is: Adult Outpatient Well Housed: Yes Non Suicidal Self Injury Current: No History: yes, scratching Safety Risk/Harm to Self or Others Current Ideation to Harm Self or Others: No Risk: Does risk to harm exist?: yes. Access to means: Yes. Types of Means: Other weapons and Medication. Details: while at home. . Counseling provided: No Risk: High Risk Duty to warn indicated: No Asssessment/Mental Status Appearance: Unremarkable Attitude: Cooperative Behavior: Unremarkable and Other (Staff reported she is anxious due to another patient in the B Zone who has been agitated.) Speech: Slow Affect: Flat and Cogruent with mood Mood: Anxious Thought process: Unremarkable Hallucinations: No Delusions: No Attention: Unremarkable Perception: Not impaired Orientation: Fully orientated Memory: Intact Insight: Fair Judgement: Fair Neurovegetative Symptoms Sleep: No change Appetitie: No change Substance Use: Do you use nicotine?: No Have you used substances in the last 7 days?: No Additional Issues: Assaultive/Threatening Behavior: No Medical Concerns: No Client engaged in active self harm w/weapon: No Threatening to run away: No Child reported abuse/neglect: No Voluntarily presenting for services: Yes Domestic violence is a concern: No Extreme Psychosis or extreme behavior is present: No Impression The client reported that she has had recent attempts to by suicide to include hanging and has reported many other plans if she were to go home. She has been at the ED since 01.07 after being discharged without additional support i.e. CARE Bed just days prior. She engaged in screening tools upon her initial current episode assessment. No CAM's support was able to be offered due to lack of current CAM's trained staff. She presented as anxious this am due to another client who is disregulated and very symptomatic and impulsive on the unit. She is reported to not even be able to go to the rest room without someone standing outside of the door. This is not unreasonable based on the other client's presentation. She is short with her answers with this clinician as well based on her reports in the recent past that she does not want to speak with this clinician. This is likely due to an EE that needed to be written on the client during her past suicide attempt and the client wanted to leave the hospital AMA. The client identifies as a , heterosexual female who is a single mother. She still however, lives with her ex- who is present during the assessment and supportive. All underrepresented categories are r espected during her assessment. Plan/Disposition Recommended Disposition: Hospitalization facilities contacted. Plan: The client will remain at [facility] pending admission to an accepting facility or until she is able to safely safety plan home. She will be assessed daily until either or are agreed upon. Person reported agreement to plan: Yes Reports/communication Outcome discussed with: ED/Personnel
--- NOTE | 2024-01-13 14:32 | PDOC.MHPN2 ---
Date of service: 01/13/24 Time of Service: 14:32 Mental Health Emergency Note Release [facility] release signed:: Yes Reason for Visit Client presented into [facility] due to SI on 01.07.24 seeking voluntary inpatient care. Client recently left [facility] inpatient facility, she believed that she received all the services that she needed. The client was reassessed today while at [facility] due to suicidal ideation which she is denied experiencing currently however, reported that if she were to return home she would rate her risk a 3/10. She still endorsed I wish I was not here but denied active intent or plan. In the last 2 weeks has the pt presented for ES prior to today?: Yes, presented at [facility] ED Impression The client is sitting on her bed quietly and staring at the wall. She made good eye contact when this clinician entered the room. She reported that she is not feeling well and noted that her stomach was hurting some and wondered if it was related to her anxiety. She noted that she is still not having SI at the time as she is in a safe place and rates her risk level at a 4/10. She noted she is sleeping okay and that her appetite is slightly less today due to her stomach hurting.The client identifies as a , heterosexual female who is a single mother. She still however, lives with her ex- who is present during the assessment and supportive. All underrepresented categories are respected during her assessment. Plan/Disposition Recommended Disposition: Hospitalization facilities contacted. Plan: The client accepted to [facility]. Client was transported at 1300 hours via the director report. Person reported agreement to plan: Yes Reports/communication Outcome discussed with: ED/Personnel
== END 2024-01-13 13:05 ==
PROVIDERS: Student in an Organized Health Care Education/Training Program; Emergency Provider Emergency Medicine; PCP Family Medicine
DX: R45.851 Suicidal ideations (principal); F32.A Depression, unspecified; I25.10 Atherosclerotic heart disease of native coronary artery without angina pectoris; E11.9 Type 2 diabetes mellitus without complications; E78.5 Hyperlipidemia, unspecified; Z79.84 Long term (current) use of oral hypoglycemic drugs; Z79.82 Long term (current) use of aspirin; Z87.891 Personal history of nicotine dependence
CPT/HCPCS: 00123; 36415; 80053; 80307; 81025; 96127; 99285; 80320; 80329; 81003; 81015; 84443; 85025; J3490

== ENCOUNTER 2024-01-27 22:13 | Outpatient (REF) | payer MEDICARE, MEDICAID, SELFPAY ==
[2024-01-27 19:52] LABS: Hemoglobin A1C 5.6 % (<5.7)
== END 2024-01-27 22:14 | disposition home or self-care (01) ==
LOC: NCHCN 22:13
PROVIDERS: PCP Family Medicine; Visit Provider Family Medicine
DX: E11.9 Type 2 diabetes mellitus without complications (principal)
CPT/HCPCS: 83036

== ENCOUNTER 2024-05-27 18:57 | Outpatient (REF) | payer MEDICARE, MEDICAID, SELFPAY ==
[2024-05-27 19:08] LABS: COMMENT (LAB VIEW ONLY) 83.09 mg/dL; Microalb ug/mg Crea 2.8 ug/mg Cr
== END 2024-05-27 18:58 | disposition home or self-care (01) ==
LOC: NCHCN 18:57
PROVIDERS: PCP Family Medicine; Visit Provider Family Medicine
DX: E11.9 Type 2 diabetes mellitus without complications (principal)
CPT/HCPCS: 82043; 82570

== ENCOUNTER → 2024-06-03 00:09 | Outpatient (CLI) | payer MEDICARE, MEDICAID, SELFPAY ==
--- OUTSIDE RECORDS SUMMARY | 2024-06-03 00:22 | XMS_ITS | Encounter Summary ---
[facility] [place] [address] Care Team Providers Care Workers' Compensation Mediator Name Role Phone Edie Ellis MD Primary Care Provider [phone] Encounter Details Date Type Department Care Team (Latest Contact Info) Description 01/29/2024 Travel Social History Tobacco Use Types Packs/Day Years Used Date Smoking Tobacco: Former Cigarettes 1 - 08/2022 Smokeless Tobacco: Never Comments:no more than 5 a da y - 01/02/2022 Alcohol Use Standard Drinks/Week Comments Yes 0 (1 standard drink = 0.6 oz pur e alcohol) rarely DH IPV Inpatient Questions Answer Date Recorded Does Anyone Try to Keep You From Having Contact with Others or Doing Things Outside Your Home? no 08/07/2023 Feels Threatened by Someone no 07/24 Feels Unsafe at Home or Work/School no 08/07/2023 Physical Signs of Abuse Present no 08/07/2023 Sex and Gender Information Value Date Recorded Sex Assigned at Female 10/05/2021 11:32 AM EST Gender Identity Female 10/05/2021 11:32 AM EST Sexual Orientation Straight 10/05/2021 11 :32 AM EST documented as of this encounter Plan of Treatment Upcoming Encounters Date Type Department Care Team (Late st Contact Info) Description 07/09/2024 10:00 AM EDT Hospital Encounter Non-Invasive [place] [id number] Arrived documented as of this encounter Visit Diagnoses Not on filedocumented in this encounter Care Teams Workers' Compensation Mediator Relationship Specialty Start Date End Date Edie Ellis MD [address] [facility] [address] [place] [address] PCP - General 10/15/10 documented as of this encounter
--- OUTSIDE RECORDS SUMMARY | 2024-06-03 00:22 | XMS_ITS | Continuity of Care Document ---
Author Organization [place] - [facility], [facility] Address [address] [place] [address] Assessment Encounter Date Assessment Date Assessment LastModified by Organization Details LastModified Time 05/27/2024 05/27/2024 Patient presente d to office today for their Medicare Annual Wellness Visit. Education was provided on healthy nutrition, including a diet rich in fruits and vegetables, minimizing simple carbohydrates, salt, and saturated fats. Encouraged regular cardiovascular exercise such as walking at least 30 minutes daily, 5 times per week. Emphasized preventive health measures and educated pt on fall prevention and community-based lifestyle interventions to help reduce health risks and promote healthy living. Personalized prevention plan (PPP) completed and reviewed with patient. Patient was given written copy of PPP at conclusion of visit, detailing prior screening and 5-10 year future screening plan including: screenings for breast cancer and colorectal cancer, immunizations, and other age appropriate screenings consistent with USPSTF and ACIP guidelines [facility] Not available 05/27/2024 14:23:59 Plan of Treatment Reminders Order Date Submit Date Provider Last Modified By Organization Details Last Modified Time Details Appointments Follow Up 20 2023 04:20P M Edie Rhonda Not available Not available Not available Lab drug screen, urine 2023 024 [facility], [address], [place], [address], 05/27/2024 16:05:20 hemoglobi n A1C, fingersti ck 2023 024 [facility], [address], [place], [address], 05/27/2024 16:05:20 microalbu min, urine 2023 024 [facility], [address], [place], [address], 05/27/2024 16:05:14 Referral None recorded. Procedures None recorded. Surgeries None recorded. Imaging MAMMO, screening , digital, bilateral 2023 024 [email or web address] [facility], [address], [place], [address], 05/31/2024 09:32:34 Medication Orders Vascepa 1 gram capsule 2023 024 [email or web address] [facility], [address] [place] [address], [id number], 05/27/2024 16:10:30 Adult Low Dose Aspirin 81 mg tablet,de layed release 2023 024 FELISA [facility], [address] [place] [address], [id number], 05/27/2024 16:34:36 melatonin 10 mg sublingua l tablet 2023 024 [facility], [address] [place] [address], [id number], 05/27/2024 16:10:30 pregabali n 100 mg capsule 2023 024 FELISA [facility], [address] [place] [address], [id number], 05/27/2024 16:35:19 lamotrigi ne 200 mg tablet 2023 024 [facility], [address] [place] [address], [id number], 05/27/2024 16:10:30 magnesium oxide 400 mg (241.3 mg magnesium ) tablet 2023 024 [email or web address] [facility], [address] [place] [address], [id number], 05/27/2024 16:10:30 Vitamin B-2 100 mg tablet 2023 024 [email or web address] [facility], [address] [place] [address], [id number], 05/27/2024 16:10:30 bupropion HCl XL 150 mg 24 hr tablet, extended release 2023 024 [email or web address] [facility], [address] [place] [address], [id number], 05/27/2024 16:10:30 bupropion HCl XL 300 mg 24 hr tablet, extended release 2023 024 chepe [facility], [address] [place] [address], [id number], 05/27/2024 16:10:30 ketoconaz ole 2 % topical cream 2023 024 [email or web address] [facility], [address] [place] [address], [id number], 05/27/2024 16:10:30 valacyclo vir 500 mg tablet 2023 024 [email or web address] [facility], [address] [place] [address], [id number], 05/27/2024 16:10:30 omeprazol e 20 mg capsule,d elayed release 2023 024 [email or web address] [facility], [address] [place] [address], [id number], 05/27/2024 16:10:30 rosuvasta tin 10 mg tablet 2023 024 [facility], [address] [place] [address], [id number], 05/27/2024 16:10:30 albuterol sulfate HFA 90 mcg/actua tion aerosol inhaler 2023 024 [facility], [address] [place] [address], [id number], 05/27/2024 16:10:30 cyanocoba ronna (vit B-12) 1,000 mcg tablet 2023 024 [facility], [address] [place] [address], [id number], 05/27/2024 16:10:30 metoprolo l succinate ER 100 mg tablet,ex tended release 24 hr 2023 024 [email or web address] [facility], [address] [place] [address], [id number], 05/27/2024 16:10:30 Farxiga 5 mg tablet 2023 024 FELISA [facility], [address] [place] [address], [id number], 05/27/2024 16:34:49 fluconazo le 150 mg tablet 2023 024 [email or web address] [facility], [address] [place] [address], [address], 05/27/2024 16:10:30 hydromorp romain 4 mg tablet 2023 024 FELISA [facility], [address] [place] [address], [id number], 05/27/2024 16:35:24 hydromorp romain 4 mg tablet 2023 024 FELISA [facility], [address] [place] [address], [id number], 05/27/2024 16:35:24 hydromorp romain 4 mg tablet 2023 024 FELISA [facility], [address] [place] [address], [address], 05/27/2024 16:35:16 naratript an 2.5 mg tablet 2023 024 [facility], [address] [place] [address], [id number], 05/27/2024 16:10:30 prochlorp erazine maleate 10 mg tablet 2023 024 [facility], [address] [place] [address], [id number], 05/27/2024 16:10:30 estradiol 1 mg tablet 2023 024 [facility], [address] [place] [address], [id number], 05/27/2024 16:10:30 metformin ER 500 mg tablet,ex tended release 24 hr 2023 024 FELISA [facility], [address] [place] [address], [id number], 05/27/2024 16:37:18 Trulicity 3 mg/0.5 mL subcutane ous pen injector 2023 024 [facility], [address] [place] [address], [id number], 05/27/2024 16:10:30 levothyro xine 50 mcg tablet 2023 024 [facility], [address] [place] [address], [id number], 05/27/2024 16:10:30 Patient TargetsNo targets recorded. Patient Instructions Encounter Date Encounter Id Patient Instructions Last Modified By Organization Details Last Modified Time 05/27/2024 [id number] Continue walking and choosing fruits and vegetables over junk food. Not available 05/27/2024 15:10:03 Reason for Referral Psychiatrist Referral for Re current major depression Jammie has longstanding recurrent depression, she has had suicidal attempts, and was recently hospitalized with suicidal intent. She has a lot of stressors with her own illness and a daughter with mental health issues as well. She has been seen by both rn ent and a prescriber in the past at [facility]. I am feeling that having a psychiatrist involved with her medication decisions would be very helpful. She was on paxil for many years, we transitioned her to DULOXETINE to help with pain and she feels that works equally well. Lamictal has been very beneficial, that dose was just increased from 100 mg to 150 mg during recent hospitalization, and her wellbutrin was changed from 150 mg BID SR to 150 mg XL once a day. Referring Physician: Edie Ellis, Family Medicine, Encounter Date: 01/06/2024 Urologist Referral for Urina ry incontinence Worsening incontinence. S/p hysterectomy. 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, most recent ECHO 03/2023 EF 42% Referring Physician: Edie Ellis, Family Medicine, Encounter Date: 03/31/2024 Results Created Date Observation Date Name Description Value Unit Range Abnormal Flag LastModifiedBy Organization Detail LastModifiedTime 05/27/2005/27/2024 drug scree n, urine Amphetamines : negati ve Not Available [facility] [address], [place], [address], 05/27/2024 14:50:14 05/27/2005/27/2024 drug scree n, urine Barbiturates : negati ve Not Available [facility] [address], [place], [address], 05/27/2024 14:50:14 05/27/20 24 05/27/2024 drug scree n, urine BUP: negati ve Not Available [facility] [address], [place], [address], 05/27/2024 14:50:14 05/27/20 24 05/27/2024 drug scree n, urine Benzodiazepi lucas: negati ve Not Available [facility] [address], [place], [address], 05/27/2024 14:50:14 05/27/20 24 05/27/2024 drug scree n, urine Cocaine: negati ve Not Available [facility] [address], [place], [address], 05/27/2024 14:50:14 05/27/20 24 05/27/2024 drug scree n, urine EDDP (Methadone Metabolite) negati ve Not Available [facility] [address], [place], [address], 05/27/2024 14:50:14 05/27/20 24 05/27/2024 drug scree n, urine (MET) Methamphetam ine: negati ve Not Available [facility] [address], [place], [address], 05/27/2024 14:50:14 05/27/20 24 05/27/2024 drug scree n, urine MDMA: negati ve Not Available [facility] [address], [place], [address], 05/27/2024 14:50:14 05/27/20 24 05/27/2024 drug scree n, urine MTD (Methadone): negati ve Not Available [facility] [address], [place], [address], 05/27/2024 14:50:14 05/27/20 24 05/27/2024 drug scree n, urine Kyr728 (Opiate): positi ve Not Available [facility] [address], [place], [address], 05/27/2024 14:50:14 05/27/20 24 05/27/2024 drug scree n, urine OXY (Oxycodone): negati ve Not Available [facility] [address], [place], [address], 05/27/2024 14:50:14 05/27/20 24 05/27/2024 drug scree n, urine TCA: negati ve Not Available [facility] [address], [place], [address], 05/27/2024 14:50:14 05/27/20 24 05/27/2024 drug scree n, urine THC: negati ve Not Available [facility] [address], [place], [address], 05/27/2024 14:50:14 05/27/20 24 05/27/2024 drug scree n, urine Temperature: wnl Not Available [facility] [address], [place], [address], 05/27/2024 14:50:14 05/27/20 24 05/27/2024 hemog lobin A1C, finge rstic k hemoglobin A1C 5.4 % <5.7 Not Available [facility] [address], [place], [address], 05/27/2024 14:46:09 Result Notes None recorded. Problems Name Status Onset Date Resolution Date Notes Provider Name and Address Organization Details Recorded Time Hyperlipidemi a Active 2004 EDIE RHONDA, MD [address], [place], [address] , [facility] 4 17:39:18 Chronic tension-type headache Active 2005 Jessica Sepanch[address] light, [facility] 4 14:11:03 Polycystic ovary syndrome Active [address], [place], [address] , [facility] 4 17:42:00 Recurrent major depression Active [address], [place], [address] [place] [address] 3 21:49:59 Carpal tunnel syndrome of right wrist Active [address], [place], [address] , [facility] 3 21:56:06 Obesity Active [address], [place], [address] , [facility] 3 21:50:41 Steatosis of liver Active 2005 FIB4 score 0.51 2017, 0.86 [address], [place], [address] , [facility] 4 17:46:29 Type 2 diabetes mellitus without complication Active [address], [place], [address] , [facility] 3 21:49:31 Intolerance to lactose Active [address], [place], [address] , [facility] 4 17:40:28 Chronic pain syndrome Active 2010 MME [address], [place], [address] , [facility] 4 17:43:50 Tachycardia Active [address], [facility] [address] , [facility] 3 21:49:45 Atheroscleros is of coronary artery without angina pectoris Active 2012 Jessica light, [facility] 4 14:10:47 Discharge from nipple Completed 201406/20/2015 Problem Code: N64.52; Problem Code Type: ICD-10; Not Available [facility] 3 05:12:22 Amenorrhea Completed 201406/20/2015 05/23/2015 - Comments only - Edie Ellis MD - and nipple discharge. Negative urine test in the office, but will check serum HCG , as well as prolactin level. Problem Code: N91.2; Problem Code Type: ICD-10; Not Available [facility] 3 05:12:23 Adult health examination Active [address], [place], [address] , [facility] 4 17:32:17 Hypothyroidis m Active [address], [place], [address] , [facility] 3 21:51:31 Hypomagnesemi a Active [address], [place], [address] , [facility] 3 21:51:39 Arthralgia of the ankle and/or foot Completed 201511/12/2016 Problem Code: M25.572; Problem Code Type: ICD-10; Not Available [facility] 3 05:12:23 Nausea and vomiting Completed 201604/30/2017 04/23/2017 - Comments only - Edie Ellis MD - Heart no wet at this is simply a recurrent gastroenterit is. She is not having diarrhea, so C. difficile for Giardia and no longer likely. We will draw her blood today for CBC and CMP. Also amylase and lipase given extent of her nausea and vomiting. Problem Code: R11.2; Problem Code Type: ICD-10; Not Available [facility] 3 05:12:23 Dysuria Completed 201604/30/2017 04/23/2017 - Comments only - Edie Ellis MD - We will check urinalysis to be sure this is not UTI/pyeloneph ritis. Problem Code: R30.0; Problem Code Type: ICD-10; Not Available [facility] 3 05:12:23 Primary amenorrhea Completed 201610/02/2017 09/25/2017 - Comments only - Edie Ellis MD - Negative urine test here in the office. I lectured her again on the importance of using condoms, as she does not want to use any other form of control. If her menses continues to be absent, we could check serum hCG. Problem Code: N91.0; Problem Code Type: ICD-10; Not Available [facility] 3 05:12:24 Acute bronchitis Completed 201610/09/2017 09/25/2017 - Comments only - Edie Ellis MD - She has some wheezing on exam. Her symptoms have been persistent for over a month. I do not want to treat her with prednisone as it will make her blood sugars even worse. I have opted to trial of antibiotics with azithromycin Z-Kamari, and she is to use her albuterol with spacer 2 puffs 4 times a day until her breathing improves. Problem Code: J20.9; Problem Code Type: ICD-10; Not Available [facility] 3 05:12:24 Screening for malignant neoplasm of cervix Completed 201703/01/2018 Problem Code: Z12.4; Problem Code Type: ICD-10; Not Available [facility] 3 05:12:24 Tobacco user Active [address], [place], [address] , [facility]. 3 21:49:37 Hypertrophic condition of skin Completed 201708/25/2018 08/20/2018 - Comments only - Edie Ellis MD - Sites are consistent with silver nitrate application with slight irritation. To avoid infection I suggested applying mupirocin Problem Code: L91.8; Problem Code Type: ICD-10; Not Available [facility] 3 05:12:24 Acute bronchitis Completed 201711/08/2018 10/25/2018 - Comments only - Edie Ellis MD - Persistent symptoms for 4 weeks, we will go ahead and start antibiotics, azithromycin given penicillin allergy Problem Code: J20.9; Problem Code Type: ICD-10; Not Available [facility] 3 05:12:24 Pain in left arm Active [address], [facility] [address] , [facility] 3 21:50:31 Posttraumatic stress disorder Active [address], [facility] [address] , [facility] 3 21:50:08 Fatigue Active [address], [facility] [address] , [facility] 3 21:52:27 Diarrhea Completed 201901/05/2020 12/22/2019 - Comments only - Edie Ellis MD - She has had lots of diarrhea for the last few weeks. Certainly this could be related to her anxiety, but need to rule out infectious causes. Stool kit given and instructions. If she were in the care bed they might be able to help her obtain those samples, as she is quite averse to dealing with her own stools. Problem Code: R19.7; Problem Code Type: ICD-10; Not Available [facility] 3 05:12:25 Herpesvirus infection Active 2019 Jessica light, [facility] 4 14:11:26 Disorder of external ear Completed 201903/08/2020 Problem Code: H60.10; Problem Code Type: ICD-10; Not Available [facility] 3 05:12:25 Lumbago with sciatica Active [address], [place], [address] , [facility] 4 17:40:39 Pain of right shoulder joint Active 2021 MRI 12/[address], [place], [address] , [facility] 4 17:41:50 Dysuria Completed 202102/03/2022 01/20/2022 - Comments only - Edie Ellis MD - and urinary incontinence, referral back to urology. Problem Code: R30.0; Problem Code Type: ICD-10; Not Available [facility] 3 05:12:26 Muscle pain Active 2021 deep muscle biopsy, awaiting results. 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 MD [address], [place], [address] , [facility] 4 17:41:01 Displacement of cervical intervertebra l disc Active 2021 Jessica light, [facility] 4 14:11:08 Pre-surgery evaluation Completed 202104/23/2022 04/16/2022 - Comments only - Edie Ellis MD - She is medically stable for proposed low risk surgery. She does have known cardiomyopath y, but her last ejection fraction was good, and she has nonobstructiv e disease based on cardiac catheterizati on. She does not have any orthopnea or dyspnea or ankle edema. Problem Code: Z01.818; Problem Code Type: ICD-10; Not Available [facility] 3 05:12:27 Anxiety disorder Active [address], [facility] [address] , [facility] 4 17:32:23 Seasonal allergic rhinitis Active [address], [facility] [address] [place] [address] 4 17:42:04 Urinary incontinence Active [address], [facility] [address] [place] [address] 3 21:49:24 Dyspnea Completed 202110/06/2022 Problem Code: R06.09; Problem Code Type: ICD-10; Not Available [facility] 3 05:12:28 Screening mammography Completed 202111/03/2023 Problem Code: Z12.31; Problem Code Type: ICD-10; MD [address], [facility] [address] , [facility] 3 21:49:52 Chondromalaci a of left knee Active [address], [facility] [address] [place] [address] 4 17:32:37 Acute vaginitis Completed 202210/06/2023 Problem Code: N76.0; Problem Code Type: ICD-10; Removal Reason: resolved MD [address], [facility] [address] , [facility] 3 12:54:07 Dyspnea Completed 202006/17/2021 Problem Code: R06.02; Problem Code Type: ICD-10; Not Available [facility] 3 05:12:35 Lactose intolerance Completed 200408/19/2023 Not Available [facility] 3 05:12:36 Dysthymia Completed 201705/16/2019 Problem Code: F34.1; Problem Code Type: ICD-10; Not Available [facility] 3 05:12:36 Acute upper respiratory infection Completed 201903/22/2020 Problem Code: J06.9; Problem Code Type: ICD-10; Not Available [facility] 3 05:12:38 Low back pain Completed 201610/25/2021 Problem Code: M54.5; Problem Code Type: ICD-10; Not Available [facility] 3 05:12:38 Right upper quadrant pain Completed 201607/30/2017 Problem Code: R10.11; Problem Code Type: ICD-10; Not Available [facility] 3 05:12:38 Anxiety Completed 200408/19/2023 Problem Code: F41.8; Problem Code Type: ICD-10; Not Available [facility] 3 05:12:39 Pelvic and perineal pain Completed 201810/03/2019 Problem Code: R10.2; Problem Code Type: ICD-10; Not Available [facility] 3 05:12:39 Atrial flutter Completed 202006/17/2021 Problem Code: I48.92; Problem Code Type: ICD-10; Not Available [facility] 3 05:12:39 Hyperglycemia due to type 2 diabetes mellitus Completed 200508/19/2023 12/18/2017 - Comments only - Edie Ellis MD - check labs prior to follow up visit. Problem Code: E11.65; Problem Code Type: ICD-10; Not Available [facility] 3 05:12:40 Splenomegaly Completed 200608/19/2023 Not Available [facility] 3 05:12:40 Morbid obesity Completed 200408/19/2023 Not Available [facility] 3 05:12:40 Derangement of left knee Completed 202204/15/2023 Problem Code: M23.92; Problem Code Type: ICD-10; Not Available [facility] 3 05:12:41 Pain of left shoulder joint Completed 201805/06/2021 Problem Code: M25.512; Problem Code Type: ICD-10; Not Available [facility] 3 05:12:41 Noninflammato ry disorder of the vagina Completed 202204/20/2023 Problem Code: N89.8; Problem Code Type: ICD-10; Not Available [facility] 3 05:12:42 Pelvic and perineal pain Completed 201607/30/2017 Problem Code: R10.2; Problem Code Type: ICD-10; Not Available [facility] 3 05:12:42 Dysuria Completed 202107/09/2022 Problem Code: R30.9; Problem Code Type: ICD-10; Not Available [facility] 3 05:12:42 Polycystic ovaries Completed 200508/19/2023 Not Available [facility] 3 05:12:43 Coronary arteriosclero sis Completed 201208/19/2023 Not Available [facility] 3 05:12:43 Localized edema Completed 201607/30/2017 Problem Code: R60.0; Problem Code Type: ICD-10; Not Available [facility] 3 05:12:44 Diarrhea Completed 201604/10/2017 Problem Code: R19.7; Problem Code Type: ICD-10; Not Available [facility] 3 05:12:44 Pain of right wrist Completed 202104/15/2023 Problem Code: M25.531; Problem Code Type: ICD-10; Not Available [facility] 3 05:12:45 Nicotine dependence Completed 201708/19/2023 10/03/2019 - Comments only - Edie Ellis MD - congratulated on quitting. Problem Code: Z87.891; Problem Code Type: ICD-10; Not Available [facility] 3 05:12:45 Headache Completed 200508/19/2023 Not Available [facility] 3 05:12:45 Cyst of ovary Completed 201607/30/2017 Problem Code: N83.20; Problem Code Type: ICD-10; Not Available [facility] 3 05:12:47 Diabetes mellitus Completed 200508/19/2023 08/08/2015 - Comments only - Edie Ellis MD - with poor control based on hemoglobin A1c, despite significant recent weight loss. I have recommended that she increase her dose of metformin to 1000 mg twice daily. We discussed the role of checking blood sugars and initiating insulin, she is adamant that she would be unable to do so at this time. Not Available [facility] 3 05:12:48 Fatigue Completed 201508/08/2016 Problem Code: R53.83; Problem Code Type: ICD-10; MD [address], [place], [address] , [facility] 21:52:27 Generalized anxiety disorder Completed 200408/19/2023 10/23/2017 - Comments only - Edie Ellis MD - clonazepam is renewed for 8 weeks. Problem Code: F41.1; Problem Code Type: ICD-10; Not Available [facility] 3 05:12:49 Carpal tunnel syndrome Completed 201108/19/2023 Problem Code: 354.0; Problem Code Type: ICD-9; MD [address], [place], [address] , [facility] 3 21:56:13 Pneumocystosi s Completed 202111/06/2022 Problem Code: B59; Problem Code Type: ICD-10; Not Available [facility] 3 05:12:50 Acute pharyngitis Completed 201510/29/2016 Problem Code: J02.9; Problem Code Type: ICD-10; Not Available [facility] 3 05:12:50 Dysfunctional uterine bleeding Completed 200410/03/2019 Not Available [facility] 3 05:12:51 Active immunization Completed 201709/29/2019 Problem Code: Z23; Problem Code Type: ICD-10; Not Available [facility] 3 05:12:51 Pain of left knee joint Completed 202208/19/2023 Problem Code: M25.562; Problem Code Type: ICD-10; Not Available [facility] 3 05:12:52 Pain in right arm Completed 202108/19/2023 03/13/2022 - Comments only - Edie Ellis MD - and right shoulder pain. Pain radiates into the right arm. Did have improvement with injections into the shoulder and lateral epicondyle, which make shoulder impingement/r otator cuff tear more likely, however pain from ear radiating down entire arm more worrisome for cervical spine inovement. Will repeat MRI of shoulder given significant fall since last MRI, and also MRI of cervical spine. She should call [facility] neurology to see if she can be on their cancellation list. Labs were drawn today for CPK, inflammatory markers. Reminded her that smoking lowers pain threshold. Problem Code: M79.601; Problem Code Type: ICD-10; Not Available [facility] 3 05:12:53 Palpitations Completed 202104/15/2023 Problem Code: R00.2; Problem Code Type: ICD-10; Not Available [facility] 3 05:12:54 Palpitations Completed 201805/16/2019 Problem Code: R00.2; Problem Code Type: ICD-10; Not Available [facility] 3 05:12:54 Glycosuria Completed 202204/15/2023 Problem Code: R81; Problem Code Type: ICD-10; Not Available [facility] 3 05:12:55 Mixed anxiety and depressive disorder Completed 200408/19/2023 10/05/2015 - Comments only - Edie Ellis MD - I reminded her that every time she avoids a situation that gives her anxiety, she increases her anxiety, and that she should continue to try exposure therapy. Not Available [facility] 3 05:12:56 Exposure to sexually transmissible disorder Completed 201406/20/2015 Problem Code: Z20.2; Problem Code Type: ICD-10; Not Available [facility] 3 05:12:57 Syncope and collapse Completed 201902/11/2021 Problem Code: R55; Problem Code Type: ICD-10; Not Available [facility] 3 05:12:57 Dyspnea Completed 201904/15/2023 Problem Code: R06.02; Problem Code Type: ICD-10; Not Available [facility] 3 05:12:58 Severe obesity Completed 200408/19/2023 08/24/2020 - Comments only - Edie Ellis MD - She is congratulated on her recent weight loss. Problem Code: E66.01; Problem Code Type: ICD-10; Not Available [facility] 3 05:12:58 Menopause present Completed 201801/11/2020 Problem Code: N95.1; Problem Code Type: ICD-10; Not Available [facility] 3 05:12:59 Exposure to communicable disease Completed 201910/05/2020 Problem Code: Z20.828; Problem Code Type: ICD-10; Not Available [facility] 3 05:13:00 Pain of breast Completed 202104/15/2023 Problem Code: N64.4; Problem Code Type: ICD-10; Not Available [facility] 3 05:13:01 Exposure to communicable disease Completed 202111/06/2022 Problem Code: Z20.828; Problem Code Type: ICD-10; Not Available [facility] 3 05:13:02 Recurrent herpes simplex Active [address], [place], [address] , [facility] 3 12:52:56 Herniation of nucleus pulposus of cervical intervertebra l disc Active 2021 cervical spine MD [address], [place], [address] , [facility] 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% in 03/[address], [address] 4 20:14:59 Cardiac defibrillator in situ Active [address], [address] 3 22:00:00 Localized infection of skin AND/OR subcutaneous tissue Completed 202208/28/2023 Problem Code: L08.9; Problem Code Type: ICD-10; Not Available [facility] 4 05:38:00 Injury due to suicide attempt Completed 202201/05/2024 Problem Code: T14.91xD; Problem Code Type: ICD-10; MD [address], [address] 4 17:42:23 Suicidal Active 2023 recurrent MD [address], [address] 4 17:43:22 Heart failure with reduced ejection fraction Active 2022 Jessica light, [facility] 4 14:11:13 Problem Notes None recorded. Procedures Surgical History Date Name Laterality Status Provider Name and Address Organization Details Recorded Time 0 hysterectomy completed MD Gonzalo [address]LE Dr, [address] 12/09/2023 20:53:39 Imaging Results None recorded. Procedure Notes None recorded. Medical Equipment None Reported. Allergies Allergen ID Allergen Name Allergen Category Reaction Reaction Severity Criticality Documentation Date Start Date Code Code System Note Provider Name and Address Organization Details Recorded Time 85529 Medicinal product containin g penicilli n and acting as antibacte rial agent (product) medicatio n anaphylax is Not available Not available 10/02/20232004 35211 05 SNOMED anaph ylact ic shock Aller gyCod e: '8340 61'; Aller gyNam e: 'PENI CILLI N'; Aller gyCon ceptT ype: 'RX Norm' ; Aller gyRea ction : 'anap hylac tic shock '; Not Available [facility] 3 16:14:27 13789 Substance with sulfonami de structure and antibacte rial mechanism of action (substanc e) medicatio n diarrhea nausea mild mild low 10/07/2023 34833 [id number] SNOMED ELLIE LYNN LPN [facility], [place] - [facility] 3 11:21:44 Medications Name Sig Start Date Stop Date Status Note LastModified by Organization Details LastModified Time Prescript ion - Clarifica tion active Therapy Duplicat ion Not Available Not Available Not Available cyclobenz aprine 10 mg tablet 1 TAB TID 02/10 completed Not Available Not Available Not Available Miralax 17 gram/dose oral powder Take 17 gram by mouth once a day as needed 2017 active Not Available Not Available Not Avai lable lamotrigi ne 150 mg tablet Take 1 tablet every day by oral route. 01/26 completed Not Available Not Available Not Available metformin 500 mg tablet 1 qd 07/19 completed Not Available Not Available Not Available Vitamin B-2 100 mg tablet TAKE TWO TABLETS BY MOUTH EVERY DAY TWO TIMES A DAY active Not Available Not Available No t Available bupropion HCl SR 150 mg tablet,12 hr sustained -release TAKE ONE TABLET BY MOUTH TWICE A DAY 01/06 completed changed to XL Not Available Not Available Not Available clonidine HCl 0.1 mg tablet 1TAB tid 08/01 completed Not Available Not Available Not Available paroxetin e 10 mg tablet Take 1 tablet by mouth once a day as per weaning instruct ions 03/21 completed Not Available Not Available Not Available atorvasta tin 20 mg tablet Take 1 tab by mouth daily at bedtime 2019 active Not Available Not Available Not Avai lable lamotrigi ne 200 mg tablet Take 1 tablet every day by oral route at bedtime. 2023 active Not Available Not Available Not Avai lable Neurontin 300 mg capsule 1cap tid 02/10 completed Not Available Not Available Not Available clindamyc in HCl 300 mg capsule Take 1 cap by mouth three times daily 03/01 completed Not Available Not Available Not Available trazodone 50 mg tablet TAKE 0.5 TABLET (25 MG) BY ORAL ROUTE ONCE DAILY AT BEDTIME, can increase to 50 mg if needed 05/27 completed Per Melvina Bond Not Available Not Available Not Available metoprolo l succinate ER 100 mg tablet,ex tended release 1 TAB DAILY 2013 active Not Available Not Available Not Avai lable Topamax 25 mg tablet 1 TAB twice daily 06/16 completed Not Available Not Available Not Available azithromy laura 250 mg tablet Take 2 by mouth now, then take 1 by mouth daily x 4 days 10/30 completed Not Available Not Available Not Available Blood Pressure Cuff 12/16 completed Not Available Not Available Not Available Morphine Sulfate IR 15 mg tablet 1 TAB EVERY FOUR HOURS 06/02 completed Not Available Not Available Not Available alprazola m 1 mg tablet TAKE ONE TABLET BY MOUTH ONCE A DAY NEEDED FOR ANXIETY , USE SPARINGL Y 05/27 completed Not Available Not Available Not Available fluconazo le 150 mg tablet TAKE ONE TABLET BY MOUTH ONCE WEEKLY NEEDED FOR PAIN FOR YEAST INFECTIO N active Not Available Not Available No t Available metoprolo l succinate ER 50 mg tablet,ex tended release 24 hr Take 1 tablet by mouth once a day 2019 active Not Available Not Available Not Avai lable valacyclo vir 1 gram tablet Take 2 tablet by mouth every twelve hours 09/05 completed Not Available Not Available Not Available metoprolo l succinate ER 50 mg tablet,ex tended release 1 TAB DAILY 04/07 completed Not Available Not Available Not Available glipizide ER 10 mg tablet, extended release 24 hr TAKE 1 TABLET BY MOUTH TWICE DAILY 08/27 completed Not Available Not Available Not Available Remeron 15 mg tablet 1 . qd anxiety/ depressi on 05/13 completed Not Available Not Available Not Available Zonegran 100 mg capsule 2 TABS daily 06/12 completed Outside medicati on Not Available Not Available Not Available ondansetr on HCl 4 mg tablet TAKE 1 TABLET BY MOUTH EVERY 8 HOURS NEEDED FOR NAUSEA 09/28 completed Not Available Not Available Not Available prednison e 20 mg tablet 2 tablets daily for 5 days, then 1 tablet daily for 5 days Then 10 mg tablets 1 tablet daily for 5 days. 02/11 completed Not Available Not Available Not Available clonazepa m 0.5 mg tablet TAKE ONE TABLET BY MOUTH THREE TIMES A DAY NEEDED FOR ANXIETY AND PANIC ATTACK active Melvina Bond Not Available Not Available Not Available metoprolo l succinate ER 100 mg tablet,ex tended release 24 hr TAKE ONE TABLET BY MOUTH EVERY DAY active Not Available Not Available No t Available olanzapin e 5 mg tablet TAKE ONE TABLET BY MOUTH THREE TIMES A DAY NEEDED FOR ANXIETY AND AGITATIO N 05/27 completed Not Available Not Available Not Available metronida zole 250 mg tablet Take 1 tab by mouth three times daily 06/11 completed Not Available Not Available Not Available clonazepa m 1 mg tablet TAKE ONE TABLET BY MOUTH EVERY DAY FOR ANXIETY 05/27 completed Not Available Not Available Not Available Pyridium 200 mg tablet Take 1 tablet by mouth three times a day as needed 05/18 completed Not Available Not Available Not Available Mag-Oxide 400 mg tablet 1 TAB twice daily 02/02 completed Not Available Not Available Not Available Mobic 7.5 mg tablet 1TAB twice daily 05/09 completed Not Available Not Available Not Available clindamyc in HCl 150 mg capsule TAKE ONE CAPSULE BY MOUTH THREE TIMES A DAY FOR 5 DAYS 10/07 completed Not Available Not Available Not Available cyanocoba ronna (vit B-12) 1,000 mcg tablet TAKE ONE TABLET BY MOUTH EVERY DAY 2023 active Not Available Not Available Not Avai lable fexofenad ine 180 mg tablet Take 1 tablet by mouth once a day 11/06 completed Not Available Not Available Not Available Aygestin 5 mg tablet Take one po BID for 5 days, then one daily for 5 days. 03/16 completed Not Available Not Available Not Available prochlorp erazine maleate 10 mg tablet TAKE ONE TABLET BY MOUTH EVERY DAY NEEDED FOR MIGRAINE S 2023 active Not Available Not Available Not Avai lable valacyclo vir 500 mg tablet TAKE ONE TABLET BY MOUTH EVERY DAY FOR SUPRESSI ON 2023 active Not Available Not Available Not Avai lable ciproflox acin 500 mg tablet Take 1 tablet by mouth twice a day 05/12 completed Not Available Not Available Not Available Nicotrol 10 mg inhalatio n cartridge Inhale 1 cartridg e as needed 09/22 completed Not Available Not Available Not Available spironola ctone 25 mg tablet take 1/2 tablet by mouth once daily 04/01 completed Not Available Not Available Not Available bupropion HCl SR 100 mg tablet,12 hr sustained -release TAKE ONE TABLET BY MOUTH TWICE A DAY 10/07 completed Not Available Not Available Not Available ketorolac 10 mg tablet Take 1 tablet by mouth three times a day as needed for pain 11/27 completed Not Available Not Available Not Available MS Contin 15 mg tablet,ex tended release 1 TAB BID 11/21 completed Not Available Not Available Not Available Imitrex 50 mg tablet 1TAB 12/19 completed Not Available Not Available Not Available [facility] Use 1 strip daily as directed . Dx: E11.9 2016 active Not Available Not Available Not Avai lable hydromorp romain 2 mg tablet TAKE TWO TABLETS BY MOUTH TWICE A DAY 10/07 completed Not Available Not Available Not Available magnesium oxide 400 mg (241.3 mg magnesium ) tablet TAKE TWO TABLETS BY MOUTH TWICE A DAY 2023 active Not Available Not Available Not Avai lable estradiol 1 mg tablet TAKE ONE TABLET BY MOUTH EVERY MORNING AND 1 & 1/2 TABLETS BY MOUTH EVERY EVENING 2023 active Not Available Not Available Not Avai lable Lice Treatment (permethr in) 1 % topical liquid 03/25 completed Not Available Not Available Not Available Synthroid 25 mcg tablet Take 1 tab by mouth daily 2015 active Not Available Not Available Not Avai lable baclofen 10 mg tablet 1TAB three times daily 10/04 completed Not Available Not Available Not Available Lamictal 25 mg tablet Take 2 tabs by mouth daily 2018 active per [facility] Not Available Not Available Not Available levothyro xine 50 mcg tablet TAKE ONE TABLET BY MOUTH EVERY DAY active Not Available Not Available No t Available paroxetin e 20 mg tablet take 1 tablet by mouth once daily 2018 active Not Available Not Available Not Avai lable nortripty line 10 mg capsule 2 tabs at bedtime 01/27 completed Not Available Not Available Not Available oseltamiv ir 75 mg capsule Take 1 capsule by mouth twice a day for 5 days 11/02 completed Not Available Not Available Not Available fluoxetin e 20 mg tablet 1CAP daily 04/09 completed Not Available Not Available Not Available Norflex 100 mg tablet,ex tended release 1 TAB BID 01/16 completed Not Available Not Available Not Available buspirone 10 mg tablet TAKE ONE TABLET BY MOUTH TWICE A DAY active Hart Bond Not Available Not Available Not Available lisinopri l 10 mg tablet take 1 tablet by mouth once daily 04/01 completed Not Available Not Available Not Available promethaz ine 25 mg tablet 1tab [id number] 03/16 completed Not Available Not Available Not Available losartan 25 mg tablet TAKE ONE TABLET BY MOUTH EVERY DAY active Not Available Not Available No t Available omeprazol e 20 mg capsule,d elayed release TAKE 1 CAPSULE BY MOUTH EVERY DAY active Not Available Not Available No t Available lisinopri l 5 mg tablet Take 1 tablet by mouth once a day 11/27 completed [facility] cardiolo gy Not Available Not Available Not Available mupirocin 2 % topical ointment Apply a small amount to skin three times a day 03/02 completed Not Available Not Available Not Available furosemid e 20 mg tablet TAKE 1 TABLET BY MOUTH EVERY DAY 10/23 completed Not Available Not Available Not Available metoprolo l succinate ER 25 mg tablet,ex tended release 24 hr 1 po daily along with 100 mg for total of 125 mg daily 2014 active Outside prescrib er Not Available Not Available Not Available ergocalci ferol (vitamin D2) 1,250 mcg (50,000 unit) capsule Take 1 capsule once a week 04/03 completed Not Available Not Available Not Available ibuprofen 600 mg tablet 1tab TID 10/15 completed Not Available Not Available Not Available cefuroxim e axetil 500 mg tablet TAKE ONE TABLET BY MOUTH TWICE A DAY X 10/07 completed Not Available Not Available Not Available fentanyl 25 mcg/hr transderm al patch Patch - change every 72 hrs 06/20 completed Not Available Not Available Not Available Valium 10 mg tablet 1 daily Take as needed. 04/01 completed per [facility] Not Available Not Available Not Available albuterol sulfate HFA 90 mcg/actua tion aerosol inhaler INHALE TWO PUFFS BY MOUTH EVERY 4 TO 6 HOURS NEEDED active Not Available Not Available No t Available paroxetin e 40 mg tablet TAKE 1 TABLET BY MOUTH DAILY 01/21 completed Not Available Not Available Not Available OxyContin 10 mg tablet,ex tended release 1 TAB twice daily 04/19 completed Not Available Not Available Not Available ketoconaz ole 2 % topical cream APPLY TO AFFECTED AREA(S) ONCE DAILY active Not Available Not Available No t Available hydromorp romain 4 mg tablet TAKE ONE TABLET BY MOUTH TWICE A DAY FOR PAIN active Not Available Not Available No t Available Zocor 40 mg tablet 1 TAB QHS 04/15 completed Not Available Not Available Not Available metformin ER 500 mg tablet,ex tended release 24 hr TAKE ONE TABLET BY MOUTH TWICE A DAY active Not Available Not Available No t Available naratript an 2.5 mg tablet TAKE ONE TABLET BY MOUTH TWO TIMES A DAY NEEDED FOR HEADACHE ; MAY REPEAT ONE TIME AFTER 2 HOURS +MAX 2 TABLETS PER DAY+ active Not Available Not Available No t Available doxycycli ne hyclate 100 mg tablet Take 1 tablet by mouth twice daily. 03/20 completed Not Available Not Available Not Available lamotrigi ne 100 mg tablet TAKE ONE TABLET BY MOUTH EVERY DAY 01/06 completed dose increase d to 150 mg Not Available Not Available Not Available Paxil 30 mg tablet 1 TAB every morning 02/07 completed Not Available Not Available Not Available loratadin e 10 mg tablet TAKE ONE TABLET BY MOUTH EVERY DAY active OTC Not Available Not Available No t Available naproxen 500 mg tablet TAKE ONE TABLET BY MOUTH TWICE A DAY active Not Available Not Available No t Available diazepam 5 mg tablet 1 TAB q6h * 02/05 completed Not Available Not Available Not Available nicotine 7 mg/24 hr daily transderm al patch Apply to skin once a day 09/22 completed Not Available Not Available Not Available Adult Low Dose Aspirin 81 mg tablet,de layed release Take 1 tablet every day by oral route. 2023 active Not Available Not Available Not Avai lable Abilify 10 mg tablet Take 1 tab by mouth daily 2018 active per [facility] Not Available Not Available Not Available aripipraz ole 5 mg tablet TAKE ONE TABLET BY MOUTH AT BEDTIME 05/27 completed Not Available Not Available Not Available rosuvasta tin 10 mg tablet TAKE ONE TABLET BY MOUTH AT BEDTIME 2023 active Not Available Not Available Not Avai lable bupropion HCl XL 300 mg 24 hr tablet, extended release Take 1 tablet every day by oral route. 2023 active Not Available Not Available Not Avai lable bupropion HCl XL 150 mg 24 hr tablet, extended release Take 1 tablet every day by oral route. 2023 active Not Available Not Available Not Avai lable metoprolo l tartrate 25 mg tablet 1tab daily 02/28 completed Not Available Not Available Not Available Topamax 50 mg tablet 1 TAB twice daily 10/12 completed Not Available Not Available Not Available metformin ER 500 mg tablet,ex tended release 24hr (osmotic) 1 TAB daily 2014 active Not Available Not Available Not Avai lable Glipizide XL 5 mg tablet,ex tended release 1 TAB daily 01/31 completed Not Available Not Available Not Available Glipizide XL 10 mg tablet,ex tended release 1 TAB twice daily 2014 active Not Available Not Available Not Avai lable duloxetin e 20 mg capsule,d elayed release TAKE ONE CAPSULE BY MOUTH EVERY DAY FOR 7 DAYS 10/07 completed Not Available Not Available Not Available duloxetin e 30 mg capsule,d elayed release TAKE ONE CAPSULE BY MOUTH EVERY DAY REPLACES PAXIL 01/26 completed Not Available Not Available Not Available levalbute rol HFA 45 mcg/actua tion aerosol inhaler 2 puffs .q4-6 hrs prn 07/17 completed Not Available Not Available Not Available Duragesic 12 mcg/hr transderm al patch apply 2 patches, change q3d. Fill only at [facility] 2014 active Not Available Not Available Not Avai lable pregabali n 100 mg capsule Take 1 capsule by mouth three times a day 2023 active Not Available Not Available Not Avai lable Lyrica 25 mg capsule Take 1 cap by mouth twice daily 08/21 completed Not Available Not Available Not Available Lyrica 50 mg capsule Take 1 tablet by mouth twice daily. 2015 active Not Available Not Available Not Avai lable Lyrica 75 mg capsule Take 1 cap by mouth2-3 times daily 2015 active Not Available Not Available Not Avai lable spironola ctone 1 TAB daily 11/25 completed Not Available Not Available Not Available Vitamin D one qd 01/03 completed Not Available Not Available Not Available Ortho Tri-Cycle n (28) 1 TAB QD 08/15 completed Not Available Not Available Not Available Cyclessa (28) 1 qd 11/21 completed Not Available Not Available Not Available Aerochamb er Plus Z Stat spacer Use 1 spacer as directed once a day 2021 active Not Available Not Available Not Avai lable pen needle, diabetic 31 gauge x 3/16 Use once a week 2017 active Not Available Not Available Not Avai lable Abilify 2 mg tablet Take 1 tab by mouth daily 2018 active Not Available Not Available Not Avai lable Januvia 50 mg tablet Take 1 tab by mouth daily. 2016 active Not Available Not Available Not Avai lable Januvia 100 mg tablet take 1 tablet by mouth once daily 09/29 completed Not Available Not Available Not Available NAC 600 mg capsule Take 1-2 capsule by mouth twice a day OTC-TWIC E A DAY or as needed. 03/21 completed Not Available Not Available Not Available FreeStyle Lite Meter kit Use as needed 2019 active Not Available Not Available Not Avai lable FreeStyle Lite Strips Use as needed 2019 active Not Available Not Available Not Avai lable FreeStyle Lite Strips 1 strip daily 03/02 completed Not Available Not Available Not Available omeprazol e 20 mg tablet,de layed release 1 qd 01/03 completed Not Available Not Available Not Available oxycodone 10 mg tablet 1 tab two times a day for pain 07/18 completed Not Available Not Available Not Available cholecalc iferol (vitamin D3) 50 mcg (2,000 unit) capsule TAKE ONE CAPSULE BY MOUTH EVERY DAY active Not Available Not Available No t Available Viibryd 10 mg tablet 1 tab x's 7 days 03/14 completed Not Available Not Available Not Available Viibryd 40 mg tablet 1 tab a day 04/01 completed Not Available Not Available Not Available melatonin 10 mg tablet 1 tab qhs 2020 active Not Available Not Available Not Avai lable Myrbetriq 25 mg tablet,ex tended release TAKE ONE TABLET BY MOUTH EVERY DAY active Not Available Not Available No t Available bupropion HCl XL 450 mg 24 hr tablet, extended release TAKE ONE TABLET BY MOUTH EVERY DAY 03/31 completed Not Available Not Available Not Available Vascepa 1 gram capsule TAKE TWO CAPSULES BY MOUTH TWICE A DAY active Not Available Not Available No t Available melatonin 1 mg sublingua l tablet Dissolve 1 tab under tongue at bedtime 03/02 completed Not Available Not Available Not Available Farxiga 10 mg tablet Take 1 tablet by mouth once a day 11/06 completed [facility] cardiolo gy Not Available Not Available Not Available Farxiga 5 mg tablet Take 1 tablet every day by oral route, for heart failure. 2023 active Not Available Not Available Not Avai lable Bydureon 2 mg/0.65 mL subcutane ous pen injector INJECT 2 MILLIGRA M SUBCUTAN EOUSLY EVERY WEEK 02/11 completed Not Available Not Available Not Available Jardiance 10 mg tablet Take 1 tablet by mouth once a day 07/10 completed Not Available Not Available Not Available Trulicity 1.5 mg/0.5 mL subcutane ous pen injector 1.5 mg once a week 11/27 completed Inject one time a week Not Available Not Available Not Available Trulicity 0.75 mg/0.5 mL subcutane ous pen injector inject .75 mg SQ weekly 02/11 completed Not Available Not Available Not Available Flonase Allergy Relief 50 mcg/actua tion nasal spray,acosta pension 1 spray twice a day 06/10 completed Not Available Not Available Not Available OxyContin 10 mg tablet,cr ush resistant ,extended release 1 tab twice daily 08/08 completed Not Available Not Available Not Available duloxetin e 40 mg capsule,d elayed release TAKE ONE CAPSULE BY MOUTH EVERY DAY TO REPLACE PAXIL 10/07 completed Not Available Not Available Not Available Entresto 97 mg-103 mg tablet TAKE ONE TABLET BY MOUTH TWICE A DAY active [facility] cardiolo gy Not Available Not Available Not Available Entresto 49 mg-51 mg tablet TAKE ONE TABLET BY MOUTH TWICE A DAY 10/07 completed Not Available Not Available Not Available Entresto 24 mg-26 mg tablet 07/10 completed Not Available Not Available Not Available Vitamin B12 1CAP daily 01/10 completed Not Available Not Available Not Available melatonin 10 mg-lemon balm leaf extract 1 mg tablet 1 tablet every night 04/24 completed Not Available Not Available Not Available melatonin 10 mg sublingua l tablet take 1 tablet by mouth under tongue at bedtime 2023 active Not Available Not Available Not Avsarahi labtata Narcan 4 mg/actuat ion nasal spray Administ er 1 into both nostrils as needed 2016 active Not Available Not Available Not Avai lable melatonin 10 mg disintegr ating tablet 1 tablet by mouth at bedtime 10/07 completed Not Available Not Available Not Available Trintelli x 10 mg tablet TAKE ONE AND ONE-HALF TABLETS BY MOUTH EVERY DAY active Melvina Bond. Not Available Not Available Not Available magnesium 400 mg (as magnesium oxide) tablet Take 2 tablet by mouth twice a day 10/07 completed Not Available Not Available Not Available Trulicity 3 mg/0.5 mL subcutane ous pen injector INJECT 3MG UNDER THE SKIN ONCE A WEEK 2023 active Not Available Not Available Not Avai lable Paxlovid 300 mg (150 mg x 2)-100 mg tablets in a dose pack Take 3 tablet by mouth twice a day for 5 days 07/31 completed Not Available Not Available Not Available Paxlovid 150 mg-100 mg tablets in a dose pack (Renal Dose) Take 2 tablet by mouth twice a day HOLD (do not take) Rosuvast atin for 10 days 08/05 completed Not Available Not Available Not Available Vitals Date Recorded Body height Body mass index (BMI) Body weight Body temperature Heart rate Respiratory rate Systolic blood pressure Diastolic blood pressure Provider Name and Address Organization Details Last Updated DateTime 4 165.1 cm 29.6 kg/m2 34176.4 4 g 97.7 [degF] 78 /min 16 /min 104 mm[Hg] 70 mm[Hg] ELLIE LYNN LPN [facility] 14:36:47 Social History Question Answer Notes LastModified by Organizat ion Details LastModified Time Tobacco Smoking Status Former Smoker ELLIE LYNN LPN [facility] 05/27/2024 14:30:57 When Did You Quit Smoking? 1-5yearssinjuan [place] Information not available 05/27/2024 Date Of Most Recent HSA 05/27/2024 Information not available 05/27/2024 1) Date Of Last VPMS Check? 05/27/2024 Information not available 05/27/2024 2) VPMS Findings No Concerns Informa tion not available 05/27/2024 4) Daily MME 37.33 Information not available 05/27/2024 3) Date Of Last Contract: 05/27/2024 Information not available 05/27/2024 5) Date Of Last UDS 05/27/2024 Information not available 05/27/2024 Would You Say That, In General, Your Health Is Very Good Information not available 05/27/2024 How Often Does Anyone, Including Family, Physically Hurt You? Never Information not available 05/27/2024 How Often Does Anyone, Including Family, Insult Or Talk Down To You? Never Information no t available 05/27/2024 How Often Does Anyone, Including Family, Threaten You With Harm? Never Information not available 05/27/2024 How Often Does Anyone, Including Family, Scream Or Curse At You? Never Information not available 05/27/2024 Within The Past 12 Months, You Worried That Your Food Would Run Out Before You Got Money To Buy More. Sometimes True Information n ot available 05/27/2024 Within The Past 12 Months, The Food You Bought Just Didn't Last And You Didn't Have Money To Get More. Sometimes True Information n ot available 05/27/2024 How Hard Is It For You To Pay For The Very Basics Like Food, Housing, Medical Care, And Heating? Would You Say It Is: Somewhat Hard Information not available 05/27/2024 In The Past 12 Months, Has Lack Of Reliable Transportation Kept You From Medical Appointments, Meetings, Work Or From Getting Things Needed For Daily Living? No Information not available 05/27/2024 What Is Your Housing Situation Today? I Have Housing. Information not available 05/27/2024 How Often In The Past Year Have You Used Marijuana (including Smoking, Vaping, Dabbing, Or Edibles)? Never Information not available 05/27/2024 How Often In The Past Year Have You Used Prescription Medications That Were Not Prescribed To You? Never Information n ot available 05/27/2024 How Often In The Past Year Have You Taken Your Own Prescription Medication More Than The Way It Was Prescribed Or For Different Reasons Than Its Intended Purpose? Never Information no t available 05/27/2024 How Often In The Past Year Have You Used Other Drugs (for Example, Heroin, Cocaine, Meth, Salvia, Inhalants)? Never Information not available 05/27/2024 Have You Ever Used IV Drugs? No Information not available 05/27/2024 What Matters Most To You? Controlling Anxiety Information not available 05/27/2024 During The Past Four Weeks Has Your Physical And Emotional Health Limited Your Social Activities With Family And Friends, Neighbors, Or Groups? Quite A Bit Information not available 05/27/2024 During The Past Four Weeks, Was Someone Available To Help You If You Needed And Wanted Help? (For Example, If You [place] Very Nervous, Lonely, Or Blue; Got Sick And Had To Stay In Bed; Needed Someone To Talk To; Needed Help With Daily Chores; Or Needed Help Just Taking Care Of Yourself.) Yes- As Much As I Wanted Information not available 05/27/2024 During The Past Four Weeks, What Was The Hardest Physical Activity You Could Do For At Least 2 Minutes? Moderate Information not available 05/27/2024 Can You Get To Places Out Of Walking Distance Without Help? (For Example, Can You Travel Alone On Buses Or Taxis, Or Drive Your Own Car?) Yes Information not available 05/27/2024 Can You Go Shopping For Groceries Or Clothes Without Someone? s Help? Yes Information not available 05/27/2024 Can You Prepare Your Own Meals? Yes Information not available 05/27/2024 Can You Do Your Housework Without Help? Yes Information not available 05/27/2024 Because Of Any Health Problems, Do You Need The Help Of Another Person With Your Personal Care Needs Such As Eating, Bathing, Dressing, Or Getting Around The House? No Information not available 05/27/2024 Can You Handle Your Own Money Without Help? Yes Information not available 05/27/2024 Are You Having Difficulties Driving Your Car? No Information no t available 05/27/2024 Do You Always Fasten Your Seat Belt When You Are In A Car? Yes- Usually Information not available 05/27/2024 How Often During The Past Four Weeks Have You Been Bothered By Any Of The Following Problems? Falling Or Dizzy When Standing Up? Sometimes Information not available 05/27/2024 Sexual Problems? Never Informat ion not available 05/27/2024 Trouble Eating Well? Sometimes Information not available 05/27/2024 Teeth Or Denture Problems? Never Information not available 05/27/2024 Problems Using The Telephone? Never Information not available 05/27/2024 Tiredness Or Fatigue? Sometimes Information not available 05/27/2024 Have You Had 2 Or More Falls Or Sustained An Injury With A Fall In The Last Year? Yes Information no t available 05/27/2024 Do You Have Difficulty With Walking Or Balance? No Information not available 05/27/2024 Do You Currently Use A Hearing Device? No Information not available 05/27/2024 Do You Currently Have Any Trouble With Your Vision? Yes Information no t available 05/27/2024 Do You Exercise For About 20 Minutes Three Or More Days A Week? Yes- Most Of The Time Information not available 05/27/2024 Are There Any Safety Concerns In Your Home (see Attached CDC Pamphlet)? No Information not available 05/27/2024 How Often Do You Have Trouble Taking Medicines The Way You Have Been Told To Take Them? I Always Take Them As Prescribed Information not available 05/27/2024 How Confident Are You That You Can Control And Manage Most Of Your Health Problems? Somewhat Confident Information not available 05/27/2024 Do You Currently Have Any Difficulty With Your Hearing? No Information not available 05/27/2024 Date Of Most Recent SBINS 05/27/2024 Information not available 05/27/2024 What Was The Date Of Your Most Recent Tobacco Screening? 05/27/2024 Information not available 05/27/2024 Has Tobacco Cessation Counseling Been Provided? No Information not available 05/27/2024 Do You Or Have You Ever Used Any Other Forms Of Tobacco Or Nicotine? No Information not available 05/27/2024 Sex: Female Functional Status None recorded. Mental Status None recorded. Family History Relationship Description Onset Age of this Age Resolved Age Notes Mother Family history of alcoholism Mother Family history of di abetes mellitus type 1 Notes:*Problem: 03/02/13 Mot her: ETOH abuse, V-tach, DM Type II MGM: CVA PGF: CAD, AL lots of DMII on both sides. Medical History No medical history recorded. Gynecological HistoryNo gynecological history recorded. Obstetrics History GPAL:G 0 P 0 0 0 0 Immunizations Vaccine Type Date Status Provider Name and Address Organization Details Recorded Time Hep B, adult 05/27/2024 completed EDIE ELLIS MD [address], [place], [address], [facility] 05/27/2024 16:56:26 Td (adult), 5 Lf tetanus toxoid, preservative free, adsorbed 03/04/2019 completed Not Available [facility] 10/02/2023 05:15:00 Tdap 02/08/2009 completed Not Available [facility] 05:15:00 Novel [id number], all formulations 10/08/2009 completed Not Available [facility] 10/02/2023 05:15:00 Td(adult) unspecified formulation 03/27/2003 completed Not Available [facility] 10/02/2023 05:15:00 Influenza, split virus, trivalent, preservative 09/05/2015 completed Not Available [facility] 10/02/2023 05:15:00 Influenza, split virus, trivalent, preservative 10/29/2016 completed Not Available [facility] 10/02/2023 05:15:00 Influenza, split virus, quadrivalent, PF 08/08/2019 completed Not Available [facility] 10/02/2023 05:15:01 Influenza, split virus, quadrivalent, PF 08/24/2020 completed Not Available [facility] 10/02/2023 05:15:01 Influenza, split virus, quadrivalent, PF 09/29/2022 completed Not Available [facility] 10/02/2023 05:15:01 Influenza, split virus, quadrivalent, preservative 08/11/2018 completed Not Available [facility] 10/02/2023 05:15:01 Influenza, split virus, quadrivalent, preservative 08/27/2017 completed Not Available [facility] 10/02/2023 05:15:01 COVID-19, mRNA, LNP-S, PF, 30 mcg/0.3 mL dose 06/17/2021 completed Not Available [facility] 10/02/2023 05:15:01 COVID-19, mRNA, LNP-S, PF, 30 mcg/0.3 mL dose 07/09/2021 completed Not Available [facility] 10/02/2023 05:15:01 Pneumococcal conjugate PCV20, polysaccharide [id number] conjugate, adjuvant, PF 09/22/2022 completed Not Available [facility] 10/02/2023 05:15:02 COVID-19, mRNA, LNP-S, PF, 30 mcg/0.3 mL dose, leticia-sucrose 04/16/2022 completed Not Available [facility] 10/02/2023 05:15:02 COVID-19, mRNA, LNP-S, bivalent, PF, 30 mcg/0.3 mL dose 09/22/2022 completed Not Available [facility] 10/02/20 05:15:02 pneumococcal polysaccharide PPV23 03/27/2003 completed Not Available [facility] 2022 05:15:02 Hep B, adult 02/15/2018 completed Not Available [facility] 10/02/2023 05:15:02 Hep B, adult 04/16/2018 completed Not Available [facility] 10/02/2023 05:15:02 influenza, unspecified formulation 07/28/2014 completed Not Available [facility] 10/02/2023 05:15:02 Influenza, split virus, quadrivalent, PF 08/28/2023 completed Not Available [facility] 12/04/2023 05:33:21 Past Encounters Encounter ID Performer Location Encounter Start Date Encounter Closed Date Diagnosis/Indication Diagnosis SNOMED-CT Code [id number] EDIE ELLIS MD [place] [address] [place] [address] 05/27/2024 14:18:46 05/27/2024 15:14:54 Chronic pain syndrome 232057530 Adult heal th examination 342922282 Screening mammography 24 997557 Type 2 ketty betes mellitus without complication 493444871 Obesity 325274697 Chronic depression 64700 0009 Polycystic ovary syndrome 780869971 Vaginitis 80222590 Candidiasis of skin 4988 3006 Depressive disorder 3548 9007 Hypothyroidism 54211760 Chronic te nsion-type headache 982495672 Insomnia 300363108 Migraine 02411760 Gastroesop hageal reflux disease 379179908 Joint pain 69044040 Hyperlipidemia 84236795 Herpesvirus infection 23 506892 Seasonal a llergic rhinitis 095688440 Heart fail ure with reduced ejection fraction 343848895 Atheroscle rosis of coronary artery without angina pectoris 60555486415998 3 Active or passive immunization 579905829 Health Concerns Section Related Observation LastModified by Organization Detai ls LastModified Time None Recorded Concern Status LastModified by Organization Details LastModified Time None Recorded Payers Encounter Date Sequence Insurance Name Policy Number Policy Mack Covered Member ID Mack Member ID Guarantor Name 05/27/2024 1 [place] [employer] Jammie Gottlieb [id number] 1 Jammie Gottlieb 05/27/2024 2 [facility] (MEDICAID) Jammie Gottlieb [id number] Jammie Gottlieb Notes Date Note Type Note Provider Name and Address Organization Details Recorded Time 05/27/2024 text/html HPI Notes: Here for Medicare Wellness visit. SBINS and Medicare Wellness Self Assessment form were reviewed. The following concerns were noted: none The following chronic and or new problems were addressed: Diabetes states she is still using the trulicity... Last A1C in January was 5.6%, today it is 5.4% Has changed her eating- eating much better, fruits and vegetables. Usually has protein at dinner. Not very hungry. Anxiety/PTSD/depre ssion- seeing Melvina Bond NP. Leaving the house is starting to become a problem again. Tried trazadone, too sedating, so stopped. Stopped the abilify, BP was low. Now on trintellix 10 mg and buspirone. Still on lamictal and high dose bupropion. Still seeing Stefania Garcia, not sure about that fit, not convinced that is helpful, hopes to find a new counsellor at some point. Was socializing for a bit after her hospital stay and increased dose of lamictal, but stopped, Kind of slid backwards a bit. chronic pain- pain is still bad BUT she is doing more- walking almost 3 miles a day- two in the morning and another mile in the evening. Alone in the morning, listens to music. Has a loop around town that she does. 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 Followed closely by cardiology. low magnesium- taking daily supplement. Hypothyroid- TSH was normal in December of 2023 obesity- has now lost enough weight, BMI is under 30! urinary incontinence- Melvina Bond started her on Myrbetriq 25 mg. That has helped a lot, I can sneeze now. Daughter is also doing better, not having panic attacks. Son is getting today. EDIE ELLIS MD [address], [place], [address], [place] [facility]. 05/27/2024 17:16:04 OBGyn Episode No OBEpisode recorded.
--- OUTSIDE RECORDS SUMMARY | 2024-06-03 00:22 | XMS_ITS | Data Portability ---
Author Organization [facility], [facility] [place] [address] Assessment Encounter Date Assessment Date Assessment LastModified by Organization Details LastModified Time 01/06/2024 01/06/2024 The total time devoted to today's encounter, including both the tomi-mo-dfwq time with the patient and/or family/caregiver and lpx-sysv-me-face time I personally spent is 32 minutes. Not available 01/06/2024 17:05:42 01/27/2024 01/27/2024 Note created by Shabbir Fall, medical student at [employer] I took a history and did an exam on the patient. Manisha Ellis MD The total time devoted to today's encounter, including both the ctrb-ji-sont time with the patient and/or family/caregiver and hyl-nlgc-ma-face time I personally spent is 32 minutes. Not available 01/27/2024 15:30:32 05/27/2024 05/27/2024 Patient presente d to office [...] screenings consistent with USPSTF and ACIP guidelines [email or web address] Not available 05/27/2024 14:23:59 Plan of Treatment Reminders Order Date Submit Date Provider Last Modified By Organization Details Last Modified Time Details Appointments Follow Up 2023 04:20P Cam Ellis Not available Not available Not available Lab hemoglobi n A1C, fingersti ck [email or web address], [address], [place], [address], 10/07/2023 14:10:47 drug screen, urine [email or web address], [address], [place], [address], 10/07/2023 17:46:35 HbA1c (hemoglob in A1c), blood [address] , [place], [address], 01/28/2024 18:39:36 drug screen, urine 2023 024 [facility], [address], [place], [address], 05/27/2024 16:05:20 hemoglobi n A1C, fingersti ck 2023 024 [facility], [address], [place], [address], 05/27/2024 16:05:20 microalbu min, urine [address] , [place], [address], 05/27/2024 16:05:14 Referral psychiatr ist referral - Jammie has longstand ing recurrent depressio n, she has had suicidal attempts, and was recently hospitali zed with suicidal intent. She has a lot of stressors with her own illness and a daughter with mental health issues as well. She has been seen by both counsello rs and a prescribe r in the past at [facility]. I am feeling that having a psychiatr ist involved with her medicatio n decisions would be very helpful. She was on paxil for many years, we transitio ene her to DULOXETIN E to help with pain and she feels that works equally well. Lamictal has been very beneficia l, that dose was just increased from 100 mg to 150 mg during recent hospitali zation, and her wellbutri n was changed from 150 mg BID SR to 150 mg XL once a day. 2023 024 [email or web address] [facility], [address] [place], [address], 04/13/2024 11:20:56 Procedures None recorded. Surgeries None recorded. Imaging MAMMO, screening , digital, bilateral 2023 024 [email or web address] [facility], [address], [place], [address], 05/31/2024 09:32:34 Medication Orders hydromorp romain 4 mg tablet 2022 023 jack [facility], [address] [place] [address], [address], 10/07/2023 12:12:03 hydromorp romain 4 mg tablet 2022 023 FELISA [facility], [address] [place] [address], [address], 10/07/2023 17:46:30 hydromorp romain 4 mg tablet 2022 023 FELISA [facility], [address] [place], [address], 10/07/2023 17:46:30 Dilaudid 4 mg tablet 2023 024 FELISA [facility], [address] [place] [address], [address], 01/06/2024 17:03:04 lamotrigi ne 150 mg tablet 2023 024 [email or web address] [facility], [address] [place] [address], [address], 01/27/2024 11:20:48 ketoconaz ole 2 % topical cream 2023 FELISA [facility], [address] [place] [address], [address], 01/27/2024 12:01:34 hydromorp romain 4 mg tablet 2023 FELISA [facility], [address] [place] [address], [address], 03/02/2024 15:20:13 hydromorp romain 4 mg tablet 2023 024 [facility], [address] [place] [address], [address], 03/02/2024 16:33:22 hydromorp romain 4 mg tablet 2023 024 FELISA [facility], [address] [place] [address], [address], 03/02/2024 15:22:08 melatonin 10 mg sublingua l tablet 2023 FELISA [facility], [address] [place] [address], [address], 03/02/2024 15:19:52 clonazepa m 1 mg tablet 2023 024 FELISA [facility], [address] [place] [address], [address], 05/27/2024 14:27:54 Vascepa 1 gram capsule 2023 024 [email or web address] [facility], [address] [place] [address], [address], 05/27/2024 16:10:30 Adult Low Dose Aspirin 81 mg tablet,de layed release 2023 024 FELISA [facility], [address] [place] [address], [address], 05/27/2024 16:34:36 melatonin 10 mg sublingua l tablet 2023 024 [email or web address] [facility], [address] [place] [address], [address], 05/27/2024 16:10:30 pregabali n 100 mg capsule 2023 024 [email or web address] [facility], [address] [place] [address], [address], 05/27/2024 16:35:19 lamotrigi ne 200 mg tablet 2023 024 [email or web address] [facility], [address] [place] [address], [address], 05/27/2024 16:10:30 magnesium oxide 400 mg (241.3 mg magnesium ) tablet 2023 024 [email or web address] [facility], [address] [place] [address], [address], 05/27/2024 16:10:30 Vitamin B-2 100 mg tablet 2023 024 [email or web address] [facility], [address] [place] [address], [address], 05/27/2024 16:10:30 bupropion HCl XL 150 mg 24 hr tablet, extended release 2023 024 [email or web address] [facility], [address] [place] [address], [address], 05/27/2024 16:10:30 bupropion HCl XL 300 mg 24 hr tablet, extended release 2023 024 [facility], [address] [place] [address], [address], 05/27/2024 16:10:30 ketoconaz ole 2 % topical cream 2023 024 [facility], [address] [place] [address], [address], 05/27/2024 16:10:30 valacyclo vir 500 mg tablet 2023 024 [facility], [address] [place] [address], [address], 05/27/2024 16:10:30 omeprazol e 20 mg capsule,d elayed release 2023 024 [facility], [address] [place] [address], [address], 05/27/2024 16:10:30 rosuvasta tin 10 mg tablet 2023 024 [facility], [address] [place] [address], [address], 05/27/2024 16:10:30 albuterol sulfate HFA 90 mcg/actua tion aerosol inhaler 2023 024 [facility], [address] [place] [address], [address], 05/27/2024 16:10:30 cyanocoba ronna (vit B-12) 1,000 mcg tablet 2023 024 [facility], [address] [place] [address], [address], 05/27/2024 16:10:30 metoprolo l succinate ER 100 mg tablet,ex tended release 24 hr 2023 024 [email or web address] [facility], [address] [place] [address], [address], 05/27/2024 16:10:30 Farxiga 5 mg tablet 2023 024 FELISA [facility], [address] [place] [address], [address], 05/27/2024 16:34:49 fluconazo le 150 mg tablet 2023 024 emelyned [facility], [address] [place] [address], [address], 05/27/2024 16:10:30 hydromorp romain 4 mg tablet 2023 024 FELISA [facility], [address] [place] [address], [address], 05/27/2024 16:35:24 hydromorp romain 4 mg tablet 2023 024 FELISA [facility], [address] [place] [address], [address], 05/27/2024 16:35:24 hydromorp romain 4 mg tablet 2023 024 FELISA [facility], [address] [place] [address], [address], 05/27/2024 16:35:16 naratript an 2.5 mg tablet 2023 024 [email or web address] [facility], [address] [place] [address], [address], 05/27/2024 16:10:30 prochlorp erazine maleate 10 mg tablet 2023 024 [facility], [address] [place], [address], 05/27/2024 16:10:30 estradiol 1 mg tablet 2023 024 [facility], [address] [place] [address], [address], 05/27/2024 16:10:30 metformin ER 500 mg tablet,ex tended release 24 hr 2023 024 FELISA [facility], [address] [place], [address], 05/27/2024 16:37:18 Trulicity 3 mg/0.5 mL subcutane ous pen injector 2023 024 [facility], [address] [place], [address], 05/27/2024 16:10:30 levothyro xine 50 mcg tablet 2023 024 [facility], [address] [place], [address], 05/27/2024 16:10:30 Patient TargetsNo targets recorded. Patient Instructions Encounter Date Encounter Id Patient Instructions Last Modified By Organization Details Last Modified Time 01/06/2024 [id number] Your home work i s to walk the dog three times a week. Call Randi Nugent [phone] I made a referral to [facility] for a psychiatrist. back to dilaudid 2 mg pills. Not available 01/06/2024 11:23:04 01/27/2024 [id number] Take lamictal 200mg once a day in the morning instead of evening. Call back if you continue to have sleep issues so we can reduce the dose back to 175mg Please return to the ED if you start to feel unsafe or have suicidal thoughts. [facility] will call you to schedule an appointment. Please call Randi as well. Walk your dog outside 2-3x a week [email or web address] Not available 01/27/2024 14:43:31 05/27/2024 [id number] Continue walking and choosing fruits and vegetables [...] well. She has been seen by both farmworker livestock and a prescriber in the past at [facility]. I am feeling that having a psychiatrist [...] mg XL once a day. Referring Physician: Manisha Ellis, Family Medicine, Encounter Date: 01/06/2024 Urologist Referral for Urina ry incontinence Worsening incontinence. S/p hysterectomy. 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, most recent ECHO 03/2023 EF 42% Referring Physician: Manisha Ellis, Family Medicine, Encounter Date: 03/31/2024 Results Created Date Observation Date Name Description Value Unit Range Abnormal Flag LastModifiedBy Organization Detail LastModifiedTime 10/07/2010/07/2023 hemog lobin A1C, finge rstic k HbA1C 7.3 Not Available [facility] [address], [place], [address], 10/07/2023 12:09:35 10/07/20 23 10/07/2023 drug scree n, urine Amphetamines : negati ve Not Available [facility] [address], [place], [address], 10/07/2023 11:28:03 10/07/20 23 10/07/2023 drug scree n, urine Barbiturates : negati ve Not Available [facility] [address], [place], [address], 10/07/2023 11:28:03 10/07/20 23 10/07/2023 drug scree n, urine BUP: negati ve Not Available [facility] [address], [place], [address], 10/07/2023 11:28:03 10/07/20 23 10/07/2023 drug scree n, urine Benzodiazepi lucas: negati ve Not Available [facility] [address], [place], [address], 10/07/2023 11:28:03 10/07/20 23 10/07/2023 drug scree n, urine Cocaine: negati ve Not Available [facility] [address], [place], [address], 10/07/2023 11:28:03 10/07/20 23 10/07/2023 drug scree n, urine EDDP (Methadone Metabolite) negati ve Not Available [facility] [address], [place], [address], 10/07/2023 11:28:03 10/07/20 23 10/07/2023 drug scree n, urine (MET) Methamphetam ine: negati ve Not Available [facility] [address], [place], [address], 10/07/2023 11:28:03 10/07/20 23 10/07/2023 drug scree n, urine MDMA: negati ve Not Available [facility] [address], [place], [address], 10/07/2023 11:28:03 10/07/20 23 10/07/2023 drug scree n, urine MTD (Methadone): negati ve Not Available [facility] [address], [place], [address], 10/07/2023 11:28:03 10/07/20 23 10/07/2023 drug scree n, urine [id number] (Opiate): positi ve Not Available [facility] [address], [place], [address], 10/07/2023 11:28:03 10/07/20 23 10/07/2023 drug scree n, urine OXY (Oxycodone): negati ve Not Available [facility] [address], [place], [address], 10/07/2023 11:28:03 10/07/20 23 10/07/2023 drug scree n, urine TCA: negati ve Not Available [facility] [address], [place], [address], 10/07/2023 11:28:03 10/07/20 23 10/07/2023 drug scree n, urine THC: negati ve Not Available [facility] [address], [place], [address], 10/07/2023 11:28:03 10/07/20 23 10/07/2023 drug scree n, urine Temperature: 92 Not Available [facility] [address], [place], [address], 10/07/2023 11:28:03 12/31/19 24 12/31/2023 COMPL ETE BLOOD COUNT W/DIF F WBC 6.91 10_3/ uL 4.4-10 .8 normal Not Available [address] [place], [address] 12/31/2023 14:02:01 12/31/19 24 12/31/2023 COMPL ETE BLOOD COUNT W/DIF F RBC 5.01 10_6/ uL 3.93-5 .22 normal Not Available [address] [place], [address] 12/31/2023 14:02:01 12/31/19 24 12/31/2023 COMPL ETE BLOOD COUNT W/DIF F HGB 15.1 g/dL 11.2-1 5.7 normal Not Available [address] [place], [address] 12/31/2023 14:02:01 12/31/19 24 12/31/2023 COMPL ETE BLOOD COUNT W/DIF F HCT 44.5 % 36.0-4 6.0 normal Not Available [address] [place], [address] 12/31/2023 14:02:01 12/31/19 24 12/31/2023 COMPL ETE BLOOD COUNT W/DIF F MCV 89 fL 80-95 normal Not Available [address] [place], [address] 12/31/2023 14:02:01 12/31/19 24 12/31/2023 COMPL ETE BLOOD COUNT W/DIF F MCH 30.1 pg 27.0-3 3.0 normal Not Available [address] [place], [address] 12/31/2023 14:02:01 12/31/19 24 12/31/2023 COMPL ETE BLOOD COUNT W/DIF F MCHC 33.9 % 32.0-3 6.0 normal Not Available [address] [place], [address] 12/31/2023 14:02:01 12/31/19 24 12/31/2023 COMPL ETE BLOOD COUNT W/DIF F RDW 13.6 % 11.7-1 4.6 normal Not Available [address] [place], [address] 12/31/2023 14:02:01 12/31/19 24 12/31/2023 COMPL ETE BLOOD COUNT W/DIF F platelet count 235 10_3/ uL 130-40 0 normal Not Available [address] [place], [address] 12/31/2023 14:02:01 12/31/19 24 12/31/2023 COMPL ETE BLOOD COUNT W/DIF F MPV 9.6 fL 8.0-11 .0 normal Not Available [address] [place], [address] 12/31/2023 14:02:01 12/31/19 24 12/31/2023 COMPL ETE BLOOD COUNT W/DIF F neutrophils % 44.8 Not Available [address] [place], [address] 12/31/2023 14:02:01 12/31/19 24 12/31/2023 COMPL ETE BLOOD COUNT W/DIF F lymphocytes % 46.5 Not Available [address] [place], [address] 12/31/2023 14:02:01 12/31/19 24 12/31/2023 COMPL ETE BLOOD COUNT W/DIF F monocytes % 5.6 Not Available [address] [place], [address] 12/31/2023 14:02:01 12/31/19 24 12/31/2023 COMPL ETE BLOOD COUNT W/DIF F eosinophils % 2.0 Not Available [address] [place], [address] 12/31/2023 14:02:01 12/31/19 24 12/31/2023 COMPL ETE BLOOD COUNT W/DIF F basophils % 1.0 Not Available [address] [place], [address] 12/31/2023 14:02:01 12/31/19 24 12/31/2023 COMPL ETE BLOOD COUNT W/DIF F immature grans % 0.1 Not Available [address] [place], [address] 12/31/2023 14:02:01 12/31/19 24 12/31/2023 COMPL ETE BLOOD COUNT W/DIF F nucleated RBC 0.0 % 0.0-0. 3 normal Not Available [address] [place], [address] 12/31/2023 14:02:01 12/31/19 24 12/31/2023 COMPL ETE BLOOD COUNT W/DIF F absolute neutrophil count 3.09 10_3/ uL 1.2-6. 7 normal Not Available [address] [place], [address] 12/31/2023 14:02:01 12/31/19 24 12/31/2023 COMPL ETE BLOOD COUNT W/DIF F absolute lymphocyte count 3.21 10_3/ uL 1.2-3. 4 normal Not Available [address] [place], [address] 12/31/2023 14:02:01 12/31/19 24 12/31/2023 COMPL ETE BLOOD COUNT W/DIF F absolute monocyte count 0.39 10_3/ uL 0.1-0. 8 normal Not Available [address] [place], [address] 12/31/2023 14:02:01 12/31/19 24 12/31/2023 COMPL ETE BLOOD COUNT W/DIF F absolute eosinophil count 0.14 10_3/ uL 0.0-0. 7 normal Not Available [address] [place], [address] 12/31/2023 14:02:01 12/31/19 24 12/31/2023 COMPL ETE BLOOD COUNT W/DIF F absolute basophil count 0.07 10_3/ uL 0.0-0. 2 normal Not Available [address] [place], [address] 12/31/2023 14:02:01 12/31/19 24 12/31/2023 COMPR EHENS VIVIANA METAB OLIC PANEL calcium 9.1 mg/dL 8.5-10 .1 normal Not Available [address] [place], [address] 12/31/2023 14:24:03 12/31/19 24 12/31/2023 COMPR EHENS VIVIANA METAB OLIC PANEL glucose 133 mg/dL 74-106 high Not Available [address] [place], [address] 12/31/2023 14:24:03 12/31/19 24 12/31/2023 COMPR EHENS VIVIANA METAB OLIC PANEL BUN 13 mg/dL 7-18 normal Not Available [address] [place], [address] 12/31/2023 14:24:03 12/31/19 24 12/31/2023 COMPR EHENS VIVIANA METAB OLIC PANEL creatinine 0.6 mg/dL 0.55-1 .02 normal Not Available [address] [place], [address] 12/31/2023 14:24:03 12/31/19 24 12/31/2023 COMPR EHENS VIVIANA METAB OLIC PANEL estimated GFR 110.65 mL/min /1.73m 2 Not Available [address] [place], [address] 12/31/2023 14:24:03 12/31/19 24 12/31/2023 COMPR EHENS VIVIANA METAB OLIC PANEL total protein 7.1 g/dL 6.4-8. 2 normal Not Available [address] [place], [address] 12/31/2023 14:24:03 12/31/19 24 12/31/2023 COMPR EHENS VIVIANA METAB OLIC PANEL albumin 3.5 g/dL 3.4-5. 0 normal Not Available [address] [place], [address] 12/31/2023 14:24:03 12/31/19 24 12/31/2023 COMPR EHENS VIVIANA METAB OLIC PANEL bilirubin, total 0.4 mg/dL 0.2-1. 0 normal Not Available [address] [place], [address] 12/31/2023 14:24:03 12/31/19 24 12/31/2023 COMPR EHENS VIVIANA METAB OLIC PANEL alk phos 42 U/L 46-116 low Not Available [address] [place], [address] 12/31/2023 14:24:03 12/31/19 24 12/31/2023 COMPR EHENS VIVIANA METAB OLIC PANEL sodium 139 mmol/ L 136-14 5 normal Not Available [address] [place], [address] 12/31/2023 14:24:03 12/31/19 24 12/31/2023 COMPR EHENS VIVIANA METAB OLIC PANEL potassium 4.2 mmol/ L 3.5-5. 1 normal Not Available [address] [place], [address] 12/31/2023 14:24:03 12/31/19 24 12/31/2023 COMPR EHENS VIVIANA METAB OLIC PANEL chloride 101 mmol/ L 98-107 normal Not Available [address] [place], [address] 12/31/2023 14:24:03 12/31/19 24 12/31/2023 COMPR EHENS VIVIANA METAB OLIC PANEL CO2 27.0 mmol/ L 21.0-3 2.0 normal Not Available [address] [place], [address] 12/31/2023 14:24:03 12/31/19 24 12/31/2023 COMPR EHENS VIVIANA METAB OLIC PANEL anion gap 11.0 mmol/ L 3-11 normal Not Available [address] [place], [address] 12/31/2023 14:24:03 12/31/19 24 12/31/2023 COMPR EHENS VIVIANA METAB OLIC PANEL AST 21 U/L 15-37 normal Not Available [address] [place], [address] 12/31/2023 14:24:03 12/31/19 24 12/31/2023 COMPR EHENS VIVIANA METAB OLIC PANEL ALT 23 U/L 14-59 normal Not Available [address] [place], [address] 12/31/2023 14:24:03 02/08/12/31/2023 ETHYL ALCOH OL ethyl alcohol < 3.0 mg/dL <10 Not Available [address] [place], [address] 12/31/2023 14:24:04 12/31/19 24 12/31/2023 TSH (W/RE F FT4) TSH (w/ref FT4) 1.05 uIU/m L 0.36-3 .74 normal Not Available [address] [place], [address] 12/31/2023 14:24:04 12/31/19 24 12/31/2023 ACETA MINOP HEN acetaminophe n < 2 ug/mL 10-30 Not Available [address] [place], [address] 12/31/2023 14:28:02 12/31/19 24 12/31/2023 SALIC YLATE salicylate 3.0 mg/dL <2.8 Not Available [address] [place], [address] 12/31/2023 14:28:02 01/01/20 24 01/01/2024 URINA LYSIS color Yellow yellow Not Available [address] [place], [address] 01/01/2024 10:47:41 01/01/20 24 01/01/2024 URINA LYSIS clarity Clear clear Not Available [address] [place], [address] 01/01/2024 10:47:41 01/01/20 24 01/01/2024 URINA LYSIS specific gravity 1.015 1.005- 1.025 normal Not Available [address] [place], [address] 01/01/2024 10:47:41 01/01/20 24 01/01/2024 URINA LYSIS pH 6.5 5-8 normal Not Available [address] [place], [address] 01/01/2024 10:47:41 01/01/20 24 01/01/2024 URINA LYSIS leukocyte esterase Negati ve negati ve Not Available [address] [place], [address] 01/01/2024 10:47:41 01/01/20 24 01/01/2024 URINA LYSIS nitrite Negati ve negati ve Not Available [address] [place], [address] 01/01/2024 10:47:41 01/01/20 24 01/01/2024 URINA LYSIS protein Negati ve mg/dL negati ve Not Available [address] [place], [address] 01/01/2024 10:47:41 01/01/20 24 01/01/2024 URINA LYSIS glucose >=1000 mg/dL negati ve abnormal Not Available [address] [place], [address] 01/01/2024 10:47:41 01/01/20 24 01/01/2024 URINA LYSIS ketones Negati ve mg/dL negati ve Not Available [address] [place], [address] 01/01/2024 10:47:41 01/01/20 24 01/01/2024 URINA LYSIS urobilinogen 1.0 mg/dL up to 0.2 abnormal Not Available [address] [place], [address] 01/01/2024 10:47:41 01/01/20 24 01/01/2024 URINA LYSIS bilirubin Negati ve negati ve Not Available [address] [place], [address] 01/01/2024 10:47:41 01/01/20 24 01/01/2024 URINA LYSIS blood Negati ve negati ve Not Available [address] [place], [address] 01/01/2024 10:47:41 01/01/20 24 01/01/2024 URINE DRUG SCREE N ([facility] ) methadone Negati ve negati ve Not Available [address] [place], [address] 01/01/2024 11:04:44 01/01/20 24 01/01/2024 URINE DRUG SCREE N ([facility] ) benzodiazepi lucas Negati ve negati ve Not Available [address] [place], [address] 01/01/2024 11:04:44 01/01/20 24 01/01/2024 URINE DRUG SCREE N ([facility] ) cocaine Negati ve negati ve Not Available [address] [place], [address] 01/01/2024 11:04:44 01/01/20 24 01/01/2024 URINE DRUG SCREE N ([facility] ) amphetamines Negati ve negati ve Not Available [address] [place], [address] 01/01/2024 11:04:44 01/01/20 24 01/01/2024 URINE DRUG SCREE N ([facility] ) tetrahydroca nnabinol Negati ve negati ve Not Available [address] [place], [address] 01/01/2024 11:04:44 01/01/20 24 01/01/2024 URINE DRUG SCREE N ([facility] ) opiates Negati ve negati ve Not Available [address] [place], [address] 01/01/2024 11:04:44 01/01/20 24 01/01/2024 URINE DRUG SCREE N ([facility] ) barbiturates Negati ve negati ve Not Available [address] [place], [address] 01/01/2024 11:04:44 01/01/20 24 01/01/2024 URINE DRUG SCREE N ([facility] ) tricyclic antidepressa nts Negati ve negati ve Not Available [address] [place], [address] 01/01/2024 11:04:44 01/07/20 24 01/07/2024 COMPL ETE BLOOD COUNT W/DIF F WBC 8.49 10_3/ uL 4.4-10 .8 normal Not Available [address] [place], [address] 01/07/2024 14:15:32 01/07/20 24 01/07/2024 COMPL ETE BLOOD COUNT W/DIF F RBC 5.20 10_6/ uL 3.93-5 .22 normal Not Available [address] [place], [address] 01/07/2024 14:15:32 01/07/20 24 01/07/2024 COMPL ETE BLOOD COUNT W/DIF F HGB 15.6 g/dL 11.2-1 5.7 normal Not Available [address] [place], [address] 01/07/2024 14:15:32 01/07/20 24 01/07/2024 COMPL ETE BLOOD COUNT W/DIF F HCT 47.1 % 36.0-4 6.0 high Not Available [address] [place], [address] 01/07/2024 14:15:32 01/07/20 24 01/07/2024 COMPL ETE BLOOD COUNT W/DIF F MCV 91 fL 80-95 normal Not Available [address] [place], [address] 01/07/2024 14:15:32 01/07/20 24 01/07/2024 COMPL ETE BLOOD COUNT W/DIF F MCH 30.0 pg 27.0-3 3.0 normal Not Available [address] [place], [address] 01/07/2024 14:15:32 01/07/20 24 01/07/2024 COMPL ETE BLOOD COUNT W/DIF F MCHC 33.1 % 32.0-3 6.0 normal Not Available [address] [place], [address] 01/07/2024 14:15:32 01/07/20 24 01/07/2024 COMPL ETE BLOOD COUNT W/DIF F RDW 13.2 % 11.7-1 4.6 normal Not Available [address] [place], [address] 01/07/2024 14:15:32 01/07/20 24 01/07/2024 COMPL ETE BLOOD COUNT W/DIF F platelet count 251 10_3/ uL 130-40 0 normal Not Available [address] [place], [address] 01/07/2024 14:15:32 01/07/20 24 01/07/2024 COMPL ETE BLOOD COUNT W/DIF F MPV 10.4 fL 8.0-11 .0 normal Not Available [address] [place], [address] 01/07/2024 14:15:32 01/07/20 24 01/07/2024 COMPL ETE BLOOD COUNT W/DIF F neutrophils % 47.4 Not Available [address] [place], [address] 01/07/2024 14:15:32 01/07/20 24 01/07/2024 COMPL ETE BLOOD COUNT W/DIF F lymphocytes % 43.5 Not Available 00 [address] [place], [address] 01/07/2024 14:15:32 01/07/20 24 01/07/2024 COMPL ETE BLOOD COUNT W/DIF F monocytes % 5.5 Not Available [address] [place], [address] 01/07/2024 14:15:32 01/07/20 24 01/07/2024 COMPL ETE BLOOD COUNT W/DIF F eosinophils % 2.7 Not Available [address] [place], [address] 01/07/2024 14:15:32 01/07/20 24 01/07/2024 COMPL ETE BLOOD COUNT W/DIF F basophils % 0.8 Not Available [address] [place], [address] 01/07/2024 14:15:32 01/07/20 24 01/07/2024 COMPL ETE BLOOD COUNT W/DIF F immature grans % 0.1 Not Available [address] [place], [address] 01/07/2024 14:15:32 01/07/20 24 01/07/2024 COMPL ETE BLOOD COUNT W/DIF F nucleated RBC 0.0 % 0.0-0. 3 normal Not Available [address] [place], [address] 01/07/2024 14:15:32 01/07/20 24 01/07/2024 COMPL ETE BLOOD COUNT W/DIF F absolute neutrophil count 4.02 10_3/ uL 1.2-6. 7 normal Not Available [address] [place], [address] 01/07/2024 14:15:32 01/07/20 24 01/07/2024 COMPL ETE BLOOD COUNT W/DIF F absolute lymphocyte count 3.69 10_3/ uL 1.2-3. 4 high Not Available [address] [place], [address] 01/07/2024 14:15:32 01/07/20 24 01/07/2024 COMPL ETE BLOOD COUNT W/DIF F absolute monocyte count 0.47 10_3/ uL 0.1-0. 8 normal Not Available [address] [place], [address] 01/07/2024 14:15:32 01/07/20 24 01/07/2024 COMPL ETE BLOOD COUNT W/DIF F absolute eosinophil count 0.23 10_3/ uL 0.0-0. 7 normal Not Available [address] [place], [address] 01/07/2024 14:15:32 01/07/20 24 01/07/2024 COMPL ETE BLOOD COUNT W/DIF F absolute basophil count 0.07 10_3/ uL 0.0-0. 2 normal Not Available [address] [place], [address] 01/07/2024 14:15:32 01/07/20 24 01/07/2024 ACETA MINOP HEN acetaminophe n < 2 ug/mL 10-30 Not Available [address] [place], [address] 01/07/2024 14:34:33 01/07/20 24 01/07/2024 SALIC YLATE salicylate < 2.8 mg/dL <2.8 Not Available [address] [place], [address] 01/07/2024 14:34:34 01/07/20 24 01/07/2024 URINA LYSIS color Dark Yellow yellow Not Available [address] [place], [address] 01/07/2024 14:35:36 01/07/20 24 01/07/2024 URINA LYSIS clarity Clear clear Not Available Rebecca woodall [address] [place], [address] 01/07/2024 14:35:36 01/07/20 24 01/07/2024 URINA LYSIS specific gravity >= 1.030 1.005- 1.025 high Not Available [address] [place], [address] 01/07/2024 14:35:36 01/07/20 24 01/07/2024 URINA LYSIS pH 5.5 5-8 normal Not Available Rebecca woodall [address] [place], [address] 01/07/2024 14:35:36 01/07/20 24 01/07/2024 URINA LYSIS leukocyte esterase Negati ve negati ve Not Available [address] [place], [address] 01/07/2024 14:35:36 01/07/20 24 01/07/2024 URINA LYSIS nitrite Negati ve negati ve Not Available [address] [place], [address] 01/07/2024 14:35:36 01/07/20 24 01/07/2024 URINA LYSIS protein 30 mg/dL neg-tr mario abnormal Not Available [address] [place], [address] 01/07/2024 14:35:36 01/07/20 24 01/07/2024 URINA LYSIS glucose 500 mg/dL negati ve abnormal Not Available [address] [place] [place], [address] 01/07/2024 14:35:36 01/07/20 24 01/07/2024 URINA LYSIS ketones 15 mg/dL negati ve abnormal Not Available [address] [place], [address] 01/07/2024 14:35:36 01/07/20 24 01/07/2024 URINA LYSIS urobilinogen 1.0 mg/dL up to 0.2 abnormal Not Available [address] [place], [address] 01/07/2024 14:35:36 01/07/20 24 01/07/2024 URINA LYSIS bilirubin Small negati ve abnormal Not Available [address] [place], [address] 01/07/2024 14:35:36 01/07/20 24 01/07/2024 URINA LYSIS blood Negati ve negati ve Not Available [address] [place], [address] 01/07/2024 14:35:36 01/07/20 24 01/07/2024 COMPR EHENS VIVIANA METAB OLIC PANEL calcium 9.3 mg/dL 8.5-10 .1 normal Not Available [address] [place], [address] 01/07/2024 14:40:36 01/07/20 24 01/07/2024 COMPR EHENS VIVIANA METAB OLIC PANEL glucose 114 mg/dL 74-106 high Not Available [address] [place], [address] 01/07/2024 14:40:36 01/07/20 24 01/07/2024 COMPR EHENS VIVIANA METAB OLIC PANEL BUN 12 mg/dL 7-18 normal Not Available [address] [place], [address] 01/07/2024 14:40:36 01/07/20 24 01/07/2024 COMPR EHENS VIVIANA METAB OLIC PANEL creatinine 0.8 mg/dL 0.55-1 .02 normal Not Available [address] [place], [address] 01/07/2024 14:40:36 01/07/20 24 01/07/2024 COMPR EHENS VIVIANA METAB OLIC PANEL estimated GFR 90.83 mL/min /1.73m 2 Not Available [address] [place], [address] 01/07/2024 14:40:36 01/07/20 24 01/07/2024 COMPR EHENS VIVIANA METAB OLIC PANEL total protein 7.6 g/dL 6.4-8. 2 normal Not Available [address] [place], [address] 01/07/2024 14:40:36 01/07/20 24 01/07/2024 COMPR EHENS VIVIANA METAB OLIC PANEL albumin 4.0 g/dL 3.4-5. 0 normal Not Available [address] [place], [address] 01/07/2024 14:40:36 01/07/20 24 01/07/2024 COMPR EHENS VIVIANA METAB OLIC PANEL bilirubin, total 0.6 mg/dL 0.2-1. 0 normal Not Available [address] [place], [address] 01/07/2024 14:40:36 01/07/20 24 01/07/2024 COMPR EHENS VIVIANA METAB OLIC PANEL alk phos 52 U/L 46-116 normal Not Available [address] [place], [address] 01/07/2024 14:40:36 01/07/20 24 01/07/2024 COMPR EHENS VIVIANA METAB OLIC PANEL sodium 142 mmol/ L 136-14 5 normal Not Available [address] [place], [address] 01/07/2024 14:40:36 01/07/20 24 01/07/2024 COMPR EHENS VIVIANA METAB OLIC PANEL potassium 3.9 mmol/ L 3.5-5. 1 normal Not Available [address] [place], [address] 01/07/2024 14:40:36 01/07/20 24 01/07/2024 COMPR EHENS VIVIANA METAB OLIC PANEL chloride 103 mmol/ L 98-107 normal Not Available [address] [place], [address] 01/07/2024 14:40:36 01/07/20 24 01/07/2024 COMPR EHENS VIVIANA METAB OLIC PANEL CO2 28.6 mmol/ L 21.0-3 2.0 normal Not Available [address] [place], [address] 01/07/2024 14:40:36 01/07/20 24 01/07/2024 COMPR EHENS VIVIANA METAB OLIC PANEL anion gap 10.4 mmol/ L 3-11 normal Not Available [address] [place], [address] 01/07/2024 14:40:36 01/07/20 24 01/07/2024 COMPR EHENS VIVIANA METAB OLIC PANEL AST 18 U/L 15-37 normal Not Available [address] [place], [address] 01/07/2024 14:40:36 01/07/20 24 01/07/2024 COMPR EHENS VIVIANA METAB OLIC PANEL ALT 28 U/L 14-59 normal Not Available [address] [place], [address] 01/07/2024 14:40:36 01/07/20 24 01/07/2024 ETHYL ALCOH OL ethyl alcohol < 3.0 mg/dL <10 Not Available [address] [place], [address] 01/07/2024 14:40:36 01/07/20 24 01/07/2024 TSH (W/RE F FT4) TSH (w/ref FT4) 1.76 uIU/m L 0.36-3 .74 normal Not Available [address] [place], [address] 01/07/2024 14:40:37 01/07/20 24 01/07/2024 URINA LYSIS color Dark Yellow yellow Not Available [address] [place], [address] 01/07/2024 14:40:39 01/07/20 24 01/07/2024 URINA LYSIS clarity Clear clear Not Available [address] [place], [address] 01/07/2024 14:40:39 01/07/20 24 01/07/2024 URINA LYSIS specific gravity >= 1.030 1.005- 1.025 high Not Available [address] [place], [address] 01/07/2024 14:40:39 01/07/20 24 01/07/2024 URINA LYSIS pH 5.5 5-8 normal Not Available Rebecca woodall [address] [place], [address] 01/07/2024 14:40:39 01/07/20 24 01/07/2024 URINA LYSIS leukocyte esterase Negati ve negati ve Not Available [address] [place], [address] 01/07/2024 14:40:39 01/07/20 24 01/07/2024 URINA LYSIS nitrite Negati ve negati ve Not Available [address] [place], [address] 01/07/2024 14:40:39 01/07/20 24 01/07/2024 URINA LYSIS protein 30 mg/dL neg-tr mario abnormal Not Available [address] [place], [address] 01/07/2024 14:40:39 01/07/20 24 01/07/2024 URINA LYSIS glucose 500 mg/dL negati ve abnormal Not Available [address] [place], [address] 01/07/2024 14:40:39 01/07/20 24 01/07/2024 URINA LYSIS ketones 15 mg/dL negati ve abnormal Not Available [address] [place], [address] 01/07/2024 14:40:39 01/07/20 24 01/07/2024 URINA LYSIS urobilinogen 1.0 mg/dL up to 0.2 abnormal Not Available [address] [place], [address] 01/07/2024 14:40:39 01/07/20 24 01/07/2024 URINA LYSIS bilirubin Small negati ve abnormal Not Available [address] [place], [address] 01/07/2024 14:40:39 01/07/20 24 01/07/2024 URINA LYSIS blood Negati ve negati ve Not Available [address] [place], [address] 01/07/2024 14:40:39 01/07/20 24 01/07/2024 MICRO SCOPI C FINDI NGS WBC Negati ve hpf 0-5 Not Available [address] [place], [address] 01/07/2024 14:40:40 01/07/20 24 01/07/2024 MICRO SCOPI C FINDI NGS RBC Negati ve hpf 0-2 Not Available [address] [place], [address] 01/07/2024 14:40:40 01/07/20 24 01/07/2024 MICRO SCOPI C FINDI NGS epithelial cells Modera te hpf negati ve Not Available [address] [place], [address] 01/07/2024 14:40:40 01/07/20 24 01/07/2024 MICRO SCOPI C FINDI NGS bacteria Rare hpf negati ve Not Available [address] [place] [place], [address] 01/07/2024 14:40:40 01/07/20 24 01/07/2024 MICRO SCOPI C FINDI NGS crystals Negati ve hpf negati ve Not Available [address] [place], [address] 01/07/2024 14:40:40 01/07/20 24 01/07/2024 MICRO SCOPI C FINDI NGS mucus Modera te negati ve Not Available [address] [place], [address] 01/07/2024 14:40:40 01/07/20 24 01/07/2024 MICRO SCOPI C FINDI NGS casts 10-20 Hyalin e lpf negati ve Not Available [address] [place], [address] 01/07/2024 14:40:40 01/07/20 24 01/07/2024 MICRO SCOPI C FINDI NGS C S indicated? No Not Available [address] [place], [address] 01/07/2024 14:40:40 01/07/20 24 01/07/2024 URINE DRUG SCREE N ([facility] ) methadone Negati ve negati ve Not Available [address] [place], [address] 01/07/2024 17:32:01 01/07/20 24 01/07/2024 URINE DRUG SCREE N ([facility] ) benzodiazepi lucas Positi ve negati ve abnormal Not Available [address] [place], [address] 01/07/2024 17:32:01 01/07/20 24 01/07/2024 URINE DRUG SCREE N ([facility] ) cocaine Negati ve negati ve Not Available [address] [place], [address] 01/07/2024 17:32:01 01/07/20 24 01/07/2024 URINE DRUG SCREE N ([facility] ) amphetamines Negati ve negati ve Not Available [address] [place], [address] 01/07/2024 17:32:01 01/07/20 24 01/07/2024 URINE DRUG SCREE N ([facility] ) tetrahydroca nnabinol Negati ve negati ve Not Available [address] [place], [address] 01/07/2024 17:32:01 01/07/20 24 01/07/2024 URINE DRUG SCREE N ([facility] ) opiates Positi ve negati ve abnormal Not Available [address] [place], [address] 01/07/2024 17:32:01 01/07/20 24 01/07/2024 URINE DRUG SCREE N ([facility] ) barbiturates Negati ve negati ve Not Available [address] [place], [address] 01/07/2024 17:32:01 01/07/20 24 01/07/2024 URINE DRUG SCREE N ([facility] ) tricyclic antidepressa nts Negati ve negati ve Not Available [id number] [facility] , [place], [address] 01/07/2024 17:32:01 01/27/20 24 01/27/2024 HEMOG LOBIN A1C hemoglobin A1C 5.6 % <5.7 Not Available [address] , [place], [address], 01/27/2024 19:56:56 05/27/2005/27/2024 drug scree n, urine Amphetamines : negati ve Not Available [facility] [address], [place], [address], 05/27/2024 14:50:14 05/27/20 24 05/27/2024 drug scree n, urine Barbiturates : negati ve Not Available [facility] [address], [place], [address], 05/27/2024 14:50:14 05/27/20 24 05/27/2024 drug scree n, urine BUP: negati ve Not Available [facility] [address], [place], [address], 05/27/2024 14:50:14 05/27/20 24 05/27/2024 drug scree n, urine Benzodiazepi lucas: negati ve Not Available [facility] [address], [place], [address], 05/27/2024 14:50:14 05/27/20 24 05/27/2024 drug scree n, urine Cocaine: negati ve Not Available [facility] [address], [place], [address], 05/27/2024 14:50:14 05/27/20 24 05/27/2024 drug scree n, urine EDDP (Methadone Metabolite) negati ve Not Available [facility] [address], [place], [address], 05/27/2024 14:50:14 05/27/20 24 05/27/2024 drug scree n, urine (MET) Methamphetam ine: negati ve Not Available [facility] [address], [place], [address], 05/27/2024 14:50:14 05/27/20 24 05/27/2024 drug scree n, urine MDMA: negati ve Not Available [facility] [address], [place], [address], 05/27/2024 14:50:14 05/27/20 24 05/27/2024 drug scree n, urine MTD (Methadone): negati ve Not Available [facility] [address], [place], [address], 05/27/2024 14:50:14 05/27/20 24 05/27/2024 drug scree n, urine Jac729 (Opiate): positi ve Not Available [facility] [address], [place], [address], 05/27/2024 14:50:14 05/27/20 24 05/27/2024 drug scree n, urine OXY (Oxycodone): negati ve Not Available [facility] [address], [place], [address], 05/27/2024 14:50:14 05/27/20 24 05/27/2024 drug scree n, urine TCA: negati ve Not Available [facility] [address], [place], [address], 05/27/2024 14:50:14 05/27/20 24 05/27/2024 drug scree n, urine THC: negati ve Not Available [facility] [address], [place], [address], 05/27/2024 14:50:14 05/27/20 24 05/27/2024 drug scree n, urine Temperature: wnl Not Available [facility] [address], [place], [address], 05/27/2024 14:50:14 05/27/20 24 05/27/2024 hemog lobin A1C, finge rstic k hemoglobin A1C 5.4 % <5.7 Not Available [facility] [address], [place], [address], 05/27/2024 14:46:09 12/01/19 24 12/01/2023 ED visit note ED Visit Note SURENDRA Olmedo NAME: Edgardo Naya coffey UNIT #: [id number] ADMITT ING PROVID ER: Jaskaran Wells 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 RENATO: 5 Date/T renan Provid er Initia salty Docume ntatio n: 21:51. Limita tions to Docume ntatio n: no limita tions. Inform ation obtain ed by: surendra olmedo, RN notes review ed and old record s review ed. HPI Narrat viviana: Surendra olmedo here with daught er who is also a surendra olmedo, is reques ting to have a covid test. Not feelin g well x 2 weeks. Relate d Data Home Medica tions Medica tion Instru ctions Record ed Confir med rosuva statin 5 mg tablet (Crest or) 10 mg PO QPM ribofl liliam (vitam in B2) 50 mg 200 mg PO BID tablet (Vitam in B-2) levoth yroxin e 25 mcg tablet 50 mcg PO HS (Synth roid) albute rol sulfat e 90 mcg/ac tuatio n 2 puff inhala tion QID PRN aeroso l inhale r (Alvaro janet HFA) naloxo ne 4 mg/act uation nasal 1 spray intran neela ONCE PRN spray (Narca n) omepra zole 20 mg capsul e,karina yed 20 mg PO DAILY releas e prochl orpera zine maleat e 10 mg 10 mg PO DAILY PRN Headac he tablet valacy clovir 1 gram tablet 500 mg PO QHS aspiri n 81 mg tablet ,delay ed 81 mg PO DAILY Preven t blood clot releas e #14 tabs polyet hylene glycol 3350 17 17 g PO DAILY PRN gram/d ose oral powder naratr iptan 2.5 mg tablet 2.5 mg PO BID PRN estrad iol 1 mg tablet See Rx Instru ctions .Route .COMPL EX cholec alcife rol (vitam in D3) 50 50 mcg PO DAILY mcg (2,000 unit) capsul e metfor min 500 mg tablet ,exten ded 1,000 mg PO BID releas e 24 hr dulagl utide 1.5 mg/0.5 mL 3 mg subcut QWEEK subcut aneous pen inject or ([facility]) hydroc ortiso ne 2.5 % topica l cream 1 applic topica l QID #30 grams naprox en 250 mg tablet 500 mg PO BID PRN acetam inophe n 500 mg capsul e 1,000 mg (2 x 500 mg) PO Q8H PRN PRN #30 caps lamotr igine 100 mg tablet 100 mg PO HS (Lamic karla) clonaz epam 1 mg tablet 1 mg PO BID PRN melato jerry 10 mg tablet 10 mg PO HS PRN buprop ion HCl 150 mg tablet ,12 hr 150 mg PO BID sustai ene-re lease (Wellb utrin SR) lorata dine 10 mg capsul e 10 mg PO DAILY cyanoc obalam in (vitam in B-12) 1,000 mcg PO DAILY 1,000 mcg tablet dapagl iflozi n propan ediol 5 mg 5 mg PO DAILY tablet (Farxi ga) duloxe sonny 30 mg capsul e,karina yed 30 mg PO DAILY releas e hydrom orphon e 2 mg tablet 4 mg PO BID icosap ent ethyl 1 gram capsul e 2 g PO BID (Herlinda desir) pregab deonna 100 mg capsul e 100 mg PO TID sacubi tril 97 mg-nichelle sartan 103 mg 1 tab PO BID tablet (Entre sto) magnes ium oxide 400 mg (241.3 mg 400 mg PO HS #0 tabs magnes ium) tablet metopr olol tartra te 25 mg tablet 12.5 mg (1/2 x 25 mg) PO BID #0 tabs Previo us Rx's Medica tion Instru ctions Record ed aspiri n 81 mg tablet ,delay ed 81 mg PO DAILY Preven t blood clot releas e #14 tabs hydroc ortiso ne 2.5 % topica l cream 1 applic topica l QID #30 grams acetam inophe n 500 mg capsul e 1,000 mg (2 x 500 mg) PO Q8H PRN PRN #30 caps magnes ium oxide 400 mg (241.3 mg 400 mg PO HS #0 tabs magnes ium) tablet metopr olol tartra te 25 mg tablet 12.5 mg (1/2 x 25 mg) PO BID #0 tabs Allerg ies Allerg y/AdvR eac Type Severi ty Reacti on Status Date / Time Penici llins Allerg y Severe throat Verifi ed 21:57 closes Sulfa (Sulfo namide Allerg y Mild Hives Verifi ed 21:57 Antibi otics) lactos e AdvRea c Diarrh ea Verifi ed 21:57 Review of System s All system s review ed are unrema rkable except as noted in HPI and below PFSH All Active Proble ms (Updat ed @ 22:28 by Cary Benavidez on, 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) Viral URI (Acute ) Intent ional benzod iazepi ne overdo se (Acute ) Patell ofstefan al arthri tis of left knee (Acute ) Pulmon verona hypert ension (Chron ic) Acute respir atory failur e with hypoxi a (Acute ) Pulmon verona edema (Acute ) Acute respir atory distre ss (Acute ) COVID- 19 (Acute ) Bilate ral carpal tunnel syndro me (Acute ) S/P R ECTR: 022 Amplif ied muscul oskele karla pain (Acute ) Tendon itis of long head of biceps brachi i of right should er (Acute ) Bursit is of right should er (Acute ) Trauma tic tear of right rotato r cuff (Acute ) Calcif ic tendin itis of right should er (Acute ) 40mg depo-m edrol inject ion: 2021 Latera l epicon dyliti s of right elbow (Acute ) 40mg depo-m edrol inject ion: [address] positi ve stools (Acute ) Cardio myopat hy (Chron ic) last echoca rdiogr am 01/28/20 19, LVEF 50-55% , no region al wall motion abnorm alitie s, mild LVH, mild MR; normal RV size and functi on Bipola r disord er (Chron ic) Dilate d cardio myopat hy second verona to peripa rtum heart diseas e (Acute ) Atypic al chest pain (Acute ) Type 2 diabet es mellit us (Chron ic) Palpit ations (Acute ) Spell of altere d consci ousnes s (Acute ) Elevat ed brain natriu retic peptid e (BNP) level (Acute ) Chest pain (Acute ) Screen ing for colon cancer (Acute ) Tobacc o use (Acute ) Fecal occult blood test positi ve (Acute ) Medica l Histor y (Revie thu @ 16:26 by Ajay Yuan MD) Acute kidney injury Anxiet y Basila r migrai ne (03/07) contro l (01/25) Bursit is of left should er ( ) CAD (coron verona artery diseas e) mild non-ob struct viviana diseas e per cardia c cath report from [facility] 2012, more recent repeat cath unchan ged but with pulmon verona HTN Carpal tunnel syndro me, left 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 Change in mental status Chroni c migrai ne (03/07) Chroni c pain syndro me Dehydr ation Depres gladis Diabet es Discha rge planni ng issues Dizzin ess, nonspe cific Dyspne a Elbow fractu re, right Fatigu e Hyperl ipidem ia Hypert hyroid ism Imping ement syndro me of left should er ( ) Lactos e intole polo Left rotato r cuff tear ( ) Medica tion overus e headac he (03/07) Migrai ne headac he with aura (03/07) Migrai ne headac he withou t aura (03/07) Morbid obesit y Myalgi a Orthos tasis Polycy stic ovarie s Shortn ess of breath Spleno megaly Suicid al ideati on Tachyc ardia Tendin itis of long head of biceps brachi i of left should er ( 9) Unresp onsive episod e Urinar y incont inence Surgic al Histor y (Revie thu @ 16:26 by Ajay Yuan MD) Histor y of arthro scopy of left should er Histor y of robert an sectio n x2 Histor y of endome trial ablati on Hx of cardia c cathet erizat ion 1-no stent placed Previo us back surger y S/P hyster ectomy Social Histor y (Revie thu @ 16:26 by Ajay Yuan MD) 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 : Former Tobacc o Use Quit status : quit date establ ished Smokin g risk assess ment perfor med?: Yes Alcoho l Intake : never Drug use: Never Substa nce use type: does not use Number of Childr en: 3 Curren t gender identi ty: female What is your relati onship status ?: divorc ed Panel score (0-1 are the most social ly isolat ed patien ts): 0 What type of physic al activi ty do you partic ipate in: none Do you feel safe at home: Yes Do you feel safe in your relati onship ?: Yes Female Reprod uctive Histor y Menstr ual contro l method : perman ent steril izatio n Exam Narrat viviana Exam Narrat viviana: Consti tution al: Alert and orient ed x3. Appear s stated age. Normal body habitu s. Head: Normoc ephali c, no trauma . Eyes: Pupils PERRL, Red reflex noted, EOM's intact . Eyelid s symmet rical withou t lesion s, discha rge, or swelli ng. ENT: Bilate ral TM's WNL, Special Librarian al ear normal to inspec tion, no mastoi d TTP, swelli ng, or erythe ma, Nasal turbin ates WNL, no nasal discha rge. Normal dentit ion, Cocoa Press Operator ior pharyn x WNL, no exudat e. Chest: RRR, Normal S1, S2, distal pulses intact . Resp: Lungs clear to auscul tation bilate rally, no wheeze s, rales, or rhonch i. Abdome n: Soft, non-di stende d, Normoa ctive bowel sounds all 4 quads. Muscul oskele karla: Normal gait, 5/5 streng th to all four extrem ities. Skin: No suspic ious rashes or lesion s. Capill verona refill less than 2 sec. Neurol ogic: Crania l nerves II-XII intact . Alert and orient ed x 3. Motor: No defici ts noted. Sensor y: Intact bilate rally all 4 extrem ities. Reflex es: DTR's intact bilate rally. . Hemato logic/ Lympha tic: No ecchym osis, no lympha denopa thy. Course Vital Signs Vital signs: Vital Signs Temper ature 36.7 C 21:55 Pulse 89 21:55 Respir atory Rate 18 21:55 Blood Pressu re 110/71 21:55 Pulse Oximet ry 98 21:55 Temper ature 36.7 C 21:55 Pulse 89 21:55 Respir atory Rate 18 21:55 Blood Pressu re 110/71 21:55 Pulse Oximet ry 98 21:55 Pain Level 0 21:55 Medica l Decisi on Making PAtien t here with daught er who is also a patien t, is reques ting to have a covid test. Not feelin g well x 2 weeks. Qualit y:SDOH Health Relate d Social Needs: No Data to Displa y Discha rge Plan Dispos ition Patien t Dispos ition: Home Condit ion: Stable Discha rge Detail s Clinic al Impres gladis: Viral URI Primar y Care Provid er: Manisha Ellis ED Provid er: Johnst on,Sha wna Home Meds and New Rx's Prescr iption s: No Action naprox en 250 mg tablet 500 mg PO BID PRN Hold Instru ctions : Hold until PCP f/u clonaz epam 1 mg tablet 1 mg PO BID PRN melato jerry 10 mg tablet 10 mg PO HS PRN lorata dine 10 mg capsul e 10 mg PO DAILY buprop ion HCl [Wellb utrin SR] 150 mg tablet sustai ene-re lease 12 hr 150 mg PO BID cholec alcife rol (vitam in D3) 50 mcg (2,000 unit) capsul e 50 mcg PO DAILY metfor min 500 mg tablet extend ed releas e 24 hr 1,000 mg PO BID Trulic ity 1.5 mg/0.5 mL pen inject or 3 mg subcut QWEEK Hold Instru ctions : Until f/u with PCP or if blood glucos e levels begin to rise Rx Instru ctions : - on ays rosuva statin [Crest or] 5 MG tablet 10 mg PO QPM naratr iptan 2.5 mg tablet 2.5 mg PO BID PRN ribofl liliam (vitam in B2) [Vitam in B-2] 50 MG tablet 200 mg PO BID polyet hylene glycol 3350 17 gram/d ose Powder 17 g PO DAILY PRN cyanoc obalam in (vitam in B-12) 1,000 mcg tablet 1,000 mcg PO DAILY Patien t Commen ts: TAKE ONE TABLET BY MOUTH EVERY DAY duloxe sonny 30 mg capsul e,karina yed releas e(DR/E C) 30 mg PO DAILY Patien t Commen ts: Take 1 capsul e by mouth once a day to replac e paxil which she will wean off icosap ent ethyl [Herlinda pa] 1 gram capsul e 2 g PO BID Patien t Commen ts: TAKE TWO CAPSUL ES BY MOUTH TWICE A DAY Farxig a 5 mg tablet 5 mg PO DAILY Patien t Commen ts: Take 1 tablet by mouth once a day hydrom orphon e 2 mg tablet 4 mg PO BID Patien t Commen ts: TAKE TWO TABLET S BY MOUTH TWICE A DAY Entres to 97-103 mg tablet 1 tab PO BID Hold Instru ctions : Hold until PCP f/u or if SBP is consis tently > 120 mmHg Patien t Commen ts: TAKE ONE TABLET BY MOUTH TWICE A DAY pregab deonna 100 mg capsul e 100 mg PO TID Patien t Commen ts: Take 1 capsul e by mouth three times a day metopr olol tartra te 25 mg Tablet 12.5 mg PO BID Qty: 0 0RF magnes ium oxide 400 MG tablet 400 mg PO HS Qty: 0 0RF levoth yroxin e [Synth roid] 25 MCG tablet 50 mcg PO HS omepra zole 20 mg Capsul e,Karina yed Releas e(Dr/E c) 20 mg PO DAILY prochl orpera zine maleat e 10 mg Tablet 10 mg PO DAILY PRN (Reaso n: Headac he) albute rol sulfat e [Alvaro janet HFA] 90 mcg/ac tuatio n Hfa Aeroso l Inhale r 2 puff INHALA TION QID PRN naloxo ne [Narca n] 4 mg/act uation Camak, Non-Ae rosol 1 spray INTRAN NEELA ONCE PRN Patien t Commen ts: Never used. valacy clovir 1 gram tablet 500 mg PO QHS aspiri n 81 mg tablet ,delay ed releas e (DR/EC ) 81 mg PO DAILY Qty: 14 0RF Rx Instru ctions : Take 1 daily with a meal for 30 days estrad iol 1 mg tablet See Rx Instru ctions .ROUTE .COMPL EX Patien t Commen ts: TAKE 1 TABLET BY MOUTH EVERY MORNIN G THEN 2 TABLET S EVERY EVENIN G Rx Instru ctions : --> 1mg qAM and 1.5m,g qPM hydroc ortiso ne 2.5 % cream 1 applic topica l QID Qty: 30 6RF acetam inophe n 500 mg capsul e 1,000 mg PO Q8H PRN PRNQty : 30 0RF lamotr igine [Lamic karla] 100 mg tablet 100 mg PO HS Patien t Commen ts: TAKE 1 TABLET BY MOUTH EVERY DAY Discha rge Instru ctions Instru ctions : Upper Respir atory Infect ion (ED) Additi onal Instru ctions : COVID and flu swab was negati ve. Follow up with primar y care provid er in 3-5 days. Return to ED sooner if any worsen ing or concer ns. Increa se oral fluids . Please take Tyleno l or Ibupro fen with food every 4-6 hours as needed for pain and swelli ng. Referr als: Manisha Ellis MD [Prima ry Care Provid er] - 5 days cc: MANISHA ELLIS MD ------ ------ ------ ------ ------ ------ ------ ------ ------ ------ ------ --- Dictat ed by: JASKARAN WELLS NP Dictat ed: Time: Date: 2227 Date: Date: Transc ribed Date: Transc ribed Time: 2156 By: ANGEL Rodriguez This is privil eged, confid ential inform ation, intend ed only for the provid er named. Any use or distri bution by any person other than this provid er is strict ly prohib ited. If you receiv e this report in error, please notify us immedi ately at and return the origin al report to us at the addres s above. Thank you. [facility] [address], [place], [address] 12/02/2023 09:20:38 12/02/19 24 12/02/2023 CT imagi ng bruno olmedo Name: Naya Andrea Unit #: [id number] Loc: ER Orderi ng Provid er: Pramod reillyJaskaran pierson NP Accoun t #: [id number] Status : REG ER Primar y Care Provid er: Manisha Ellis M.D. Date of Exam: 09/15 Sex: F : 1974 Age: 48 Exam(s ) a CT:CT thorac ic lumbar spine wo Exam(s ) CT THORAC IC LUMBAR SPINE WO EXAM: CT THORAC IC LUMBAR SPINE WO CLINIC AL HISTOR Y: Fall, Back pain. TECHNI QUE: Imagin g Protoc ol: Axial comput ed tomogr aphy images with patino l and sagitt al reform atted images were create d and review ed. CONTRA ST MATERI AL: Intrav enous: None COMPAR SOO: No exams were availa ble for compar soo FINDIN GS: THORAC IC SPINAL COLUMN : No fractu res nor listhe sis. No facet malali gnment . No acute compro mise of the canal. No osseou s lesion s. LUMBOS ACRAL SPINAL COLUMN : No eviden ce of acute fractu re. No listhe sis. Advanc ed disc space narrow ing L5-S1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 client having no motiva tion. Client report ed ongoin g pain in body, neurop athy in legs which contri butes to feelin gs of SI. Client indica salty strugg ling with parent al respon sibili ties and suppor t daught er whom strugg les with ID which also increa ses feelin gs of being a burden and worthl essnes s. Client is hesita nt to [facility], and [facility] Direct or joined assess ment due to client presen salty escala salty when discus sing suppor t option s and clinic al recomm endati on of inpati ent. Client was amenda ble to volunt verona treatm ent. Client will be arrivi ng to [facility] and joanna bruce in ED, pendin g medica l cleara nce and volunt verona placem ent. 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 Plan/D isposi tion Recomm ended Dispos ition: Hospit alizat ion (Inpat ient volunt verona admiss ion, referr al sent to , [facility] [place], [facility], ) facili ties contac salty. Plan: Referr al for [facility] placem ent, EE should be strong ly consid ered if client it so change their mind. Referr ed to , [facility], [place], [facility] and Facili ties contac salty if Applic able CEFERINO DRAKE (refer ral submit salty) Accept ed, Pendin g review . Inform ation Sent to Benny juan: Referr peri [facility] (Refer ral submit salty, pendin g review ) Accept ed, Pendin g review . Inform ation Sent to [facility]: Referr peri [facility] (Refer ral submit salty ) Accept ed, Pendin g review . Inform ation Sent to [facility] M [facility]: [facility]er [facility] salty ) Accept ed, Pendin g review . Inform ation Sent to Chris roth: Referr peri Report s/comm unicat ion Outcom e discus sed with: ED/Per robert and Other ([facility] clinic al Direct or Macairo Sutherland t Specal ist Me[place]han [facility]) cc: ------ ------ ------ ------ ------ ------ ------ ------ ------ ------ ------ --- Dictat ed by: Azalea Ritchie Dictat ed: Time: 1340 Date: 1407 Date: Date: Transc ribed Date: Transc ribed Time: 134 By: CONCHITA This is privil eged, confid ential inform ation, intend ed only for the provid er named. Any use or distri bution by any person other than this provid er is strict ly prohib ited. If you receiv e this report in error, please notify us immedi ately at and return the origin al report to us at the addres s above. Thank you. [facility] [address], [place], [address] 12/31/2023 17:21:42 12/31/19 24 12/31/2023 ED visit note ED Visit Note SURENDRA Olmedo NAME: Naya Andrea UNIT #: [id number] ADMITT ING PROVID ER: Wanda Ricardo M.D. ACCOUN T #: [id number] PRIMAR Y CARE PROVID ER: MANISHA ELLIS MD DATE OF ADMIT: : 1974 HPI Genera l Mode of arriva l: ambula tory . Date/T renan Provid er Initia salty Docume ntatio n: 13:00 . Limita tions to Docume ntatio n: no limita tions . Inform ation obtain ed by: surendra olmedo . Histor y of Ady Serrano s 48 year old F presen ts to the emerge ncy depart ment with the chief compla int of fabiana guzman bed as modera teSurendra starte d experi encing this month( s) (1) and it has been consta nt. No reliev ing factor s improv e sympto m(s), No exacer bating factor s report ed . Surendra olmedo notes denies chest pain, fever/ chills and shortn ess of breath . Surendra olmedo did receiv e the follow ing treatm ents prior to arriva l, none Relate d Data Home Medica tions Medica tion Instru ctions Record ed Confir med rosuva statin 5 mg tablet (Crest or) 10 mg PO QPM ribofl liliam (vitam in B2) 50 mg 200 mg PO BID tablet (Vitam in B-2) levoth yroxin e 25 mcg tablet 50 mcg PO HS (Synth roid) albute rol sulfat e 90 mcg/ac tuatio n 2 puff inhala tion QID PRN aeroso l inhale r (Alvaro janet HFA) naloxo ne 4 mg/act uation nasal 1 spray intran neela ONCE PRN spray (Narca n) omepra zole 20 mg capsul e,karina yed 20 mg PO DAILY releas e prochl orpera zine maleat e 10 mg 10 mg PO DAILY PRN Headac he tablet valacy clovir 1 gram tablet 500 mg PO QHS aspiri n 81 mg tablet ,delay ed 81 mg PO DAILY Preven t blood clot releas e #14 tabs polyet hylene glycol 3350 17 17 g PO DAILY PRN gram/d ose oral powder naratr iptan 2.5 mg tablet 2.5 mg PO BID PRN estrad iol 1 mg tablet See Rx Instru ctions .Route .COMPL EX cholec alcife rol (vitam in D3) 50 50 mcg PO DAILY mcg (2,000 unit) capsul e metfor min 500 mg tablet ,exten ded 1,000 mg PO BID releas e 24 hr dulagl utide 1.5 mg/0.5 mL 3 mg subcut QWEEK subcut aneous pen inject or ([facility]) hydroc ortiso ne 2.5 % topica l cream 1 applic topica l QID #30 grams naprox en 250 mg tablet 500 mg PO BID PRN acetam inophe n 500 mg capsul e 1,000 mg (2 x 500 mg) PO Q8H PRN PRN #30 caps lamotr igine 100 mg tablet 100 mg PO HS (Lamic karla) clonaz epam 1 mg tablet 1 mg PO BID PRN melato jerry 10 mg tablet 10 mg PO HS PRN buprop ion HCl 150 mg tablet ,12 hr 150 mg PO BID sustai ene-re lease (Wellb utrin SR) lorata dine 10 mg capsul e 10 mg PO DAILY cyanoc obalam in (vitam in B-12) 1,000 mcg PO DAILY 1,000 mcg tablet dapagl iflozi n propan ediol 5 mg 5 mg PO DAILY tablet (Farxi ga) duloxe sonny 30 mg capsul e,karina yed 30 mg PO DAILY releas e hydrom orphon e 2 mg tablet 4 mg PO BID icosap ent ethyl 1 gram capsul e 2 g PO BID (Herlinda desir) pregab deonna 100 mg capsul e 100 mg PO TID sacubi tril 97 mg-nichelle sartan 103 mg 1 tab PO BID tablet (Entre sto) magnes ium oxide 400 mg (241.3 mg 400 mg PO HS #0 tabs magnes ium) tablet metopr olol tartra te 25 mg tablet 12.5 mg (1/2 x 25 mg) PO BID #0 tabs Previo us Rx's Medica tion Instru ctions Record ed aspiri n 81 mg tablet ,delay ed 81 mg PO DAILY Preven t blood clot releas e #14 tabs hydroc ortiso ne 2.5 % topica l cream 1 applic topica l QID #30 grams acetam inophe n 500 mg capsul e 1,000 mg (2 x 500 mg) PO Q8H PRN PRN #30 caps magnes ium oxide 400 mg (241.3 mg 400 mg PO HS #0 tabs magnes ium) tablet metopr olol tartra te 25 mg tablet 12.5 mg (1/2 x 25 mg) PO BID #0 tabs Allerg ies Allerg y/AdvR eac Type Severi ty Reacti on Status Date / Time Penici llins Allerg y Severe throat Verifi ed 21:57 closes Sulfa (Sulfo namide Allerg y Mild Hives Verifi ed 21:57 Antibi otics) lactos e AdvRea c Diarrh ea Verifi ed 21:57 Genera l Stated Compla int: PsychE nichelle RENATO: 2 Review of System s All system s review ed are unrema rkable except as noted in HPI and below Consti tution al Consti tution al: Denies chills , Denies fever( s) and Denies weakne ss Cardio vascul ar Cardio vascul ar: Denies chest pain and Denies dyspne a Respir atory Respir atory: Denies cough and Denies dyspne a Gastro intest inal Gastro intest inal: Denies abdomi nal pain, Denies nausea and Denies vomiti ng Muscul oskele karla Muscul oskele karla: Denies joint swelli ng Neurol ogic Neurol ogic: Denies weakne ss Psychi atric Psychi atric: Report s depres gladis Exam Const Genera l: no acute distre ss Harbeson ation: alert HENMT Head: normal to inspec tion Ears: life skills worker al ears normal Genera l nose exam: life skills worker al nose normal Mouth: moist mucous membra lucas Eyes Genera l: appear ance normal , both eyes and all relate d struct ures Neck Neck: normal visual inspec tion, full ROM and nonten antonio Resp Effort Inspec tion: normal respir atory effort and able to speak in comple te senten jose Cardio Rate: regula r rate GI Palpat ion: soft and nonten antonio Skin Genera l skin exam: no rashes or lesion s noted Neuro Genera l: patien t alert and patien t orient ed x3 Extrem Genera l: normal to inspec tion Psych Attitu de: izaiah ative Course Vital Signs Vital signs: Vital Signs Temper ature 36.6 C 12:21 Pulse 92 H 12:21 Respir atory Rate 15 12:21 Blood Pressu re 108/81 12:21 Pulse Oximet ry 98 12:21 Temper ature 36.6 C 12:21 Temper ature Source Tempor al Artery Scan 12:21 Pulse 92 H 12:21 Respir atory Rate 15 12:21 Respir atory Effort Normal 13:18 Blood Pressu re 108/81 12:21 Blood Pressu re Positi on Sittin g 12:21 Pulse Oximet ry 98 12:21 Oxygen Delive ry Method Room Air 12:21 Oxygen Flow Rate 0 12:21 Pain Level 6 12:21 Medica l Decisi on Making 48-yea r-old female with a 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 She states she has been more depres sed and then last night actual ly tried to hang hersel f,/the rope was too long so she did not actual ly hang hersel f. She arrive s consci ous and alert and orient ed x 4 speaki ng clearl y and no signs of distre ss. She has no signs of trauma to the neck no tender ness speaki ng clearl y and swallo wing normal ly nonfoc al neurol ogical exam, denies any attemp ts at overdo sing. Will procee d with lab screen ing given her suicid al ideati on. Given lack of trauma tic findin gs of the neck no bruits no swelli ng or other concer sotero findin gs do not feel any acute imagin g of her neck is indica salty. Labs unrema rkable patien t stable , medica lly cleare d to see mental health . Mental health has evalua salty her and she will be seekin g volunt verona flores ent at this time Differ ential Diagno sis Differ ential Diagno sis: depres gladis, si Medica l Record s Medica l record s review ed: Yes I review ed the patien t's medica l record s. Lab Data Lab result s review ed: Yes I review ed the patien t's lab result s. Qualit y:SDOH Health Relate d Social Needs: No Data to Displa y PFSH All Active Proble ms (Updat ed @ 14:26 by Wanda Ricardo MD) Lili griffith (Chron ic) Fall (Acute ) Lumbar back pain with radicu lopath y affect ing left lower extrem ity (Acute ) Viral URI (Acute ) Intent ional benzod iazepi ne overdo se (Acute ) Patell ofemor al arthri tis of left knee (Acute ) Pulmon verona hypert ension (Chron ic) Acute respir atory failur e with hypoxi a (Acute ) Pulmon verona edema (Acute ) Acute respir atory distre ss (Acute ) COVID- 19 (Acute ) Bilate ral carpal tunnel syndro me (Acute ) S/P R ECTR: 022 Amplif ied muscul oskele karla pain (Acute ) Tendon itis of long head of biceps brachi i of right should er (Acute ) Bursit is of right should er (Acute ) Trauma tic tear of right rotato r cuff (Acute ) Calcif ic tendin itis of right should er (Acute ) 40mg depo-m edrol inject ion: 2021 Latera l epicon dyliti s of right elbow (Acute ) 40mg depo-m edrol inject ion: [address] positi ve stools (Acute ) Cardio myopat hy (Chron ic) last echoca rdiogr am 01/28/20 19, LVEF 50-55% , no region al wall motion abnorm alitie s, mild LVH, mild MR; normal RV size and functi on Bipola r disord er (Chron ic) Dilate d cardio myopat hy second verona to peripa rtum heart diseas e (Acute ) Atypic al chest pain (Acute ) Type 2 diabet es mellit us (Chron ic) Palpit ations (Acute ) Spell of altere d consci ousnes s (Acute ) Elevat ed brain natriu retic peptid e (BNP) level (Acute ) Chest pain (Acute ) Screen ing for colon cancer (Acute ) Tobacc o use (Acute ) Fecal occult blood test positi ve (Acute ) Medica l Histor y (Revie wed @ 16:26 by Ajay Yuan MD) Acute kidney injury Anxiet y Basila r migrai ne (03/07) contro l (01/25) Bursit is of left should er ( ) CAD (coron verona artery diseas e) mild non-ob struct viviana diseas e per cardia c cath report from [facility] 2012, more recent repeat cath unchan ged but with pulmon verona HTN Carpal tunnel syndro me, left 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 Change in mental status Chroni c migrai ne (03/07) Chroni c pain syndro me Dehydr ation Depres gladis Diabet es Discha rge planni ng issues Dizzin ess, nonspe cific Dyspne a Elbow fractu re, right Fatigu e Hyperl ipidem ia Hypert hyroid ism Imping ement syndro me of left should er ( ) Lactos e intole polo Left rotato r cuff tear ( ) Medica tion overus e headac he (03/07) Migrai ne headac he with aura (03/07) Migrai ne headac he withou t aura (03/07) Morbid obesit y Myalgi a Orthos tasis Polycy stic ovarie s Shortn ess of breath Spleno megaly Suicid al ideati on Tachyc ardia Tendin itis of long head of biceps brachi i of left should er ( 05/201 9) Unresp onsive episod e Urinar y incont inence Surgic al Histor y (Revie thu @ 16:26 by Ajay Yuan MD) Histor y of arthro scopy of left should er Histor y of robert an sectio n x2 Histor y of endome trial ablati on Hx of cardia c cathet erizat ion 1-no stent placed Previo us back surger y S/P hyster ectomy Social Histor y (Revie thu @ 16:26 by Ajay Yuan MD) 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 : Former Tobacc o Use Quit status : quit date establ ished Smokin g risk assess ment perfor med?: Yes Alcoho l Intake : never Drug use: Never Substa nce use type: does not use Number of Childr en: 3 Curren t gender identi ty: female What is your relati onship status ?: divorc ed Panel score (0-1 are the most social ly isolat ed patien ts): 0 What type of physic al activi ty do you partic ipate in: none Do you feel safe at home: Yes Do you feel safe in your relati onship ?: Yes Female Reprod uctive Histor y Menstr ual contro l method : perman ent steril izatio n Discha rge Plan Discha rge Detail s Chief Compla int: PsychE nichelle Clinic al Impres gladis: Depres gladis Primar y Care Provid er: Manisha Ellis ED Provid er: Wanda Ricardo Home Meds and New Rx's Prescr iption s: No Action naprox en 250 mg tablet 500 mg PO BID PRN Hold Instru ctions : Hold until PCP f/u clonaz epam 1 mg tablet 1 mg PO BID PRN melato jerry 10 mg tablet 10 mg PO HS PRN lorata dine 10 mg capsul e 10 mg PO DAILY buprop ion HCl [Wellb utrin SR] 150 mg tablet sustai ene-re lease 12 hr 150 mg PO BID cholec alcife rol (vitam in D3) 50 mcg (2,000 unit) capsul e 50 mcg PO DAILY metfor min 500 mg tablet extend ed releas e 24 hr 1,000 mg PO BID Trulic ity 1.5 mg/0.5 mL pen inject or 3 mg subcut QWEEK Hold Instru ctions : Until f/u with PCP or if blood glucos e levels begin to rise Rx Instru ctions : - on Thursd ays rosuva statin [Crest or] 5 MG tablet 10 mg PO QPM naratr iptan 2.5 mg tablet 2.5 mg PO BID PRN ribofl liliam (vitam in B2) [Vitam in B-2] 50 MG tablet 200 mg PO BID polyet hylene glycol 3350 17 gram/d ose Powder 17 g PO DAILY PRN cyanoc obalam in (vitam in B-12) 1,000 mcg tablet 1,000 mcg PO DAILY Patien t Commen ts: TAKE ONE TABLET BY MOUTH EVERY DAY duloxe sonny 30 mg capsul e,karina yed releas e(DR/E C) 30 mg PO DAILY Patien t Commen ts: Take 1 capsul e by mouth once a day to replac e paxil which she will wean off icosap ent ethyl [Vasce pa] 1 gram capsul e 2 g PO BID Patien t Commen ts: TAKE TWO CAPSUL ES BY MOUTH TWICE A DAY Farxig a 5 mg tablet 5 mg PO DAILY Patien t Commen ts: Take 1 tablet by mouth once a day hydrom orphon e 2 mg tablet 4 mg PO BID Patien t Commen ts: TAKE TWO TABLET S BY MOUTH TWICE A DAY Entres to 97-103 mg tablet 1 tab PO BID Hold Instru ctions : Hold until PCP f/u or if SBP is consis tently > 120 mmHg Patien t Commen ts: TAKE ONE TABLET BY MOUTH TWICE A DAY pregab deonna 100 mg capsul e 100 mg PO TID Patien t Commen ts: Take 1 capsul e by mouth three times a day metopr olol tartra te 25 mg Tablet 12.5 mg PO BID Qty: 0 0RF magnes ium oxide 400 MG tablet 400 mg PO HS Qty: 0 0RF levoth yroxin e [Synth roid] 25 MCG tablet 50 mcg PO HS omepra zole 20 mg Capsul e,Karina yed Releas e(Dr/E c) 20 mg PO DAILY prochl orpera zine maleat e 10 mg Tablet 10 mg PO DAILY PRN (Reaso n: Headac he) albute rol sulfat e [Alvaro janet HFA] 90 mcg/ac tuatio n Hfa Aeroso l Inhale r 2 puff INHALA TION QID PRN naloxo ne [Narca n] 4 mg/act uation [place], Non-Ae rosol 1 spray INTRAN NEELA ONCE PRN Patien t Commen ts: Never used. valacy clovir 1 gram tablet 500 mg PO QHS aspiri n 81 mg tablet ,delay ed releas e (DR/EC ) 81 mg PO DAILY Qty: 14 0RF Rx Instru ctions : Take 1 daily with a meal for 30 days estrad iol 1 mg tablet See Rx Instru ctions .ROUTE .COMPL EX Patien t Commen ts: TAKE 1 TABLET BY MOUTH EVERY MORNIN G THEN 2 TABLET S EVERY EVENIN G Rx Instru ctions : --> 1mg qAM and 1.5m,g qPM hydroc ortiso ne 2.5 % cream 1 applic topica l QID Qty: 30 6RF acetam inophe n 500 mg capsul e 1,000 mg PO Q8H PRN PRNQty : 30 0RF lamotr igine [Lamic karla] 100 mg tablet 100 mg PO HS Patien t Commen ts: TAKE 1 TABLET BY MOUTH EVERY DAY cc: CIRILO GROVER, MANISHA ------ ------ ------ ------ ------ ------ ------ ------ ------ ------ ------ --- Dictat ed by: BRADEN GROVER, WANDA Suarez Dictat ed: Time: 132 7 Date: 1503 Date: Date: Transc ribed Date: Transc ribed Time: 1327 By: FELICITAS This is privil eged, confid ential inform ation, intend ed only for the provid er named. Any use or distri bution by any person other than this provid er is strict ly prohib ited. If you receiv e this report in error, please notify us immleela bernardo at and return the origin al report to us at the [facility] s above. Thank you. [facility] [address], [facility] [place], [address] 12/31/2023 17:21:41 12/31/19 24 12/31/2023 care manag ement safet y plan Care Manage ment Safety Plan SURENDRA Olmedo NAME: Naya Andrea UNIT #: [id number] ADMITT ING PROVID ER: Chemo Louis ACCOUN T #: [id number] PRIMAR Y CARE PROVID ER: MANISHA ELLIS MD DATE OF ADMIT: : 1974 Date of servic e: Time of Servic e: 19:21 Care Manage ment Safety Plan Status Status : Volunt verona Reason for Wait Reason for Wait: Inpati ent Admiss ion Safety Plan Safety Plan: Per report , Jammie is volunt verona, awabrandie ng admiss ion for inpati ent psychi atric stabil izatio n. She report ed that she attemp salty to end her life by valente yee yester day, but was unsucc essful . She was screen ed by [facility] at their [facility] ur office , and due to her acuity , she was jimena t to [facility] for inpati ent admiss ion. Referr als were placed with all facili ties in [place], and are pendin g review . CM will contin ue to follow . [facility] FOR INPATI ENT PSYCHI ATRIC STABIL IZATIO N.??? Surendra olmedo is approp riana in all intera ctions since arrivi janis at [facility]; Pt has demons trated approp riate coping and commun icatio n skills , has articu lated his or her needs and concer ns and is fully engage d during staff intera ctions . Safety plan has been establ ished with surendra olmedo, and care team, to adhere to surendra olmedo goals, identi fy restri ctions based on behavi oral status , addres s nutrit ion, and determ ine allowe d person al be longin gs, tools for hygien e and person al care. Determ ine level of activi ty includ ing ambula tion, level of superv ision, visito rs, and determ ine privil eges based on behavi ors and level of engage ment by pt. SAFETY PLAN: 1. Will remain on suicid e precau tions, in paper clothe s 2. 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 3. May have paper cups, plates , finger foods as well as a cardbo tesfaye spoon with which to eat meals. 4. Follow [facility] Manage ment of the Admitt ed Behavi oral Health Surendra olmedo policy . 5. Shower availa ble in [facility] B with t restri ction. 6. Person al belong ings-s oft items permit salty at RN discre tion. 7. Visito rs- at RN discre tion. 8. Activi ties: soft cart items approv ed per RN discre tion. 9.??? Bathro om availa ble in [facility] B with t restri ction. 10. Phone: limite d to [facility] nenita ss phone at RN discre tion. Due to V[facility] status , if surendra olmedo wishes to leave [facility], staff will contac t [facility] Crisis Screen er ([phone]) and On-Karin l Care Manage r ([phone]) as soon as possib tata. In the event of elopem ent, notify [employer] ([phone]). Surendra olmedo is curren tly volunt arily at [facility] a bed become s availa ble. [facility] Frontl ine [address] [place] will contin ue seekin g [facility] ent. Please contac t the Check Examiner Care Manage r ([phone]) and [facility] [address] [place] ([phone]) for any needed change s in the Safety Plan. Safety plan has been provid ed to [facility] ental care team. cc: ------ ------ ------ ------ ------ ------ ------ ------ ------ ------ ------ --- Dictat ed by: Chemo Louis Dictat ed: Time: 1920 Date: 1927 Date: Date: Transc ribed Date: Transc ribed Time: 1920 By: YELITZA Coffey This is privil eged, confid ential inform ation, intend ed only for the provid er named. Any use or distri bution by any person other than this provid er is strict ly prohib ited. If you receiv e this report in error, please notify us immedi ately at and return the origin al report to us at the addres s above. Thank you. [facility] [address] [place], [address] 01/01/2024 12:01:18 01/01/20 24 01/01/2024 ED progr ess note ED Progre ss Note PATIEN T NAME: Naya Andrea UNIT #: [id number] ADMITT ING PROVID ER: Shelli Pratt M.D. ACCOUN T #: [id number] PRIMAR Y CARE PROVID ER: MANISHA ELLIS MD DATE OF ADMIT: : 1974 Date of servic e: Time of Servic e: 13:15 Medica l Decisi on Making Patien t restin g active ly no acute distre ss. Patien t has been accept ed by Dr. Tellez at [facility] for inpati ent treatm ent. Physic ketan to physic ketan sign off given nestor fontenot myself and Dr. Mara odonnell Bed is availa ble patien t awaiti ng transp ort Qualit y:SDOH Health Relate d Social Needs: No Data to Displa y Sign Out Sign Out Data: Sign Out Commen t: volunt verona for si, calm and izaiah ative Last update d by Wanda Ricardo MD at 15:57 Sign Out Commen t: volunt verona for si, awaiti ng reeval for placem ent Last update d by Shelli Pratt MD at 22:12 Sign Out Commen t: Volunt verona for SI, waitin g placem ent. Stable throug hout the night. No interv ention s needed . Last update d by Martir Taylor DO at 05:12 Discha rge Plan Dispos ition Patien t Dispos ition: Psychi atric Hospit al/Uni t Specif ic Psychi atric Fac[facility] Condit ion: Stable Discha rge Detail s Chief Compla int: [facility] Impres gladis: Depres gladis Primar y Care Provid er: Manisha Ellis ED Provid er: Shelli Pratt Home Meds and New Rx's Prescr iption s: No Action naprox en 250 mg tablet 500 mg PO BID PRN Hold Instru ctions : Hold until PCP f/u clonaz epam 1 mg tablet 1 mg PO BID PRN melato jerry 10 mg tablet 10 mg PO HS PRN lorata dine 10 mg capsul e 10 mg PO DAILY buprop ion HCl [Wellb utrin SR] 150 mg tablet sustai ene-re lease 12 hr 150 mg PO BID cholec alcife rol (vitam in D3) 50 mcg (2,000 unit) capsul e 50 mcg PO DAILY metfor min 500 mg tablet extend ed releas e 24 hr 1,000 mg PO BID Trulic ity 1.5 mg/0.5 mL pen inject or 3 mg subcut QWEEK Hold Instru ctions : Until f/u with PCP or if blood glucos e levels begin to rise Rx Instru ctions : - on d ays rosuva statin [Crest or] 5 MG tablet 10 mg PO QPM naratr iptan 2.5 mg tablet 2.5 mg PO BID PRN ribofl liliam (vitam in B2) [Vitam in B-2] 50 MG tablet 200 mg PO BID polyet hylene glycol 3350 17 gram/d ose Powder 17 g PO DAILY PRN cyanoc obalam in (vitam in B-12) 1,000 mcg tablet 1,000 mcg PO DAILY Patien t Commen ts: TAKE ONE TABLET BY MOUTH EVERY DAY duloxe sonny 30 mg capsul e,karina yed releas e(DR/E C) 30 mg PO DAILY Patien t Commen ts: Take 1 capsul e by mouth once a day to replac e paxil which she will wean off icosap ent ethyl [Vasce pa] 1 gram capsul e 2 g PO BID Patien t Comm ts: TAKE TWO CAPSUL ES BY MOUTH TWICE A DAY Farxig a 5 mg tablet 5 mg PO DAILY Patien t Comm ts: Take 1 tablet by mouth once a day hydrom orphon e 2 mg tablet 4 mg PO BID Patien t Commen ts: TAKE TWO TABLET S BY MOUTH TWICE A DAY Entres to 97-103 mg tablet 1 tab PO BID Hold Instru ctions : Hold until PCP f/u or if SBP is consis tently > 120 mmHg Patien t Comm ts: TAKE ONE TABLET BY MOUTH TWICE A DAY pregab deonna 100 mg capsul e 100 mg PO TID Patien t Comm ts: Take 1 capsul e by mouth three times a day metopr olol tartra te 25 mg Tablet 12.5 mg PO BID Qty: 0 0RF magnes ium oxide 400 MG tablet 400 mg PO HS Qty: 0 0RF levoth yroxin e [Synth roid] 25 MCG tablet 50 mcg PO HS omepra zole 20 mg Capsul e,Karina yoko Releas e(Dr/E c) 20 mg PO DAILY prochl orpera zine maleat e 10 mg Tablet 10 mg PO DAILY PRN (Reaso n: Headac he) albute rol sulfat e [Alvaro janet HFA] 90 mcg/ac tuatio n Hfa Aeroso l Inhale r 2 puff INHALA TION QID PRN naloxo ne [Narca n] 4 mg/act uation [place], Non-Ae rosol 1 spray INTRAN NEELA ONCE PRN Patien t Comm ts: Never used. valacy clovir 1 gram tablet 500 mg PO QHS aspiri n 81 mg tablet ,delay ed releas e (DR/EC ) 81 mg PO DAILY Qty: 14 0RF Rx Instru ctions : Take 1 daily with a meal for 30 days estrad iol 1 mg tablet See Rx Instru ctions .ROUTE .COMPL EX Patien t Commen ts: TAKE 1 TABLET BY MOUTH EVERY MORNIN G THEN 2 TABLET S EVERY EVENIN G Rx Instru ctions : --> 1mg qAM and 1.5m,g qPM hydroc ortiso ne 2.5 % cream 1 applic topica l QID Qty: 30 6RF acetam inophe n 500 mg capsul e 1,000 mg PO Q8H PRN PRNQty : 30 0RF lamotr igine [Lamic karla] 100 mg tablet 100 mg PO HS Patien t Commen ts: TAKE 1 TABLET BY MOUTH EVERY DAY cc: MANISHA ELLIS MD ------ ------ ------ ------ ------ ------ ------ ------ ------ ------ ------ --- Dictat ed by: Shelli Pratt M.D. Dictat ed: Hosea e: 1315 Date: 1 316 Date: Date: Transc ribed Date: Transc ribed Time: 1314 By: TABITHA Olmedo This is privil eged, confid ential inform ation, intend ed only for the provid er named. Any use or distri bution by any person other than this provid er is strict ly prohib ited. If you receiv e this report in error, please notify us immjadei tova at [phone] and return the origin al report to us at the addres s above. Thank you. [facility] [address], [place], [address] 01/01/2024 14:32:57 01/01/20 24 01/01/2024 care manag ement progr ess note Care Manage ment Progre ss Note PATIEN T NAME: Naya Andrea UNIT #: [id number] ADMITT ING PROVID ER: Soha Tobias T #: [id number] PRIMAR Y CARE PROVID ER: MANISHA ELLIS MD DATE OF ADMIT: : 1974 Date of servic e: Time of Servic e: 15:41 Care Manage ment Progre ss Note Progre ss Note Text Progre ss Note Text: Jammie was transf [facility] for volunt verona psychi atric admiss ion. JAVIER(C are Manage ment) Screen ing Will the Surendra olmedo Partic ipate in the Screen ing?: Unable to obtain cc: ------ ------ ------ ------ ------ ------ ------ ------ ------ ------ ------ --- Dictat ed by: Melany Tobias Dictat ed: Time: 154 Date: 154 Date: Date: Transc ribed Date: Transc ribed Time: 1540 By: JIMBO This is privil eged, confid ential inform ation, intend ed only for the provid er named. Any use or distri bution by any person other than this provid er is strict ly prohib ited. If you receiv e this report in error, please notify us immedi russly at and return the origin al report to us at the addres s above. Thank you. [facility] [address] [place], [address] 01/01/2024 16:24:41 01/07/20 24 01/07/2024 komal gonzalez s note Mental Health Crisis Note SURENDRA Olmedo NAME: Naya Andrea UNIT #: [id number] ADMITT ING PROVID ER: Shireen Patino ACCOUN T #: [id number] PRIMAR Y CARE PROVID ER: MANISHA ELLIS MD DATE OF ADMIT: : 1974 Date of servic e: Time of Servic e: 14:31 PHQ-9 Over the last 2 weeks, how often have you been bother ed by any of the follow ing proble ms? 1. Little intere st or pleasu re in doing things : nearly every day 2. Feelin g down, depres sed, or hopele ss: nearly every day 3. Troubl e fallin g or stayin g asleep , or sleepi ng too much: nearly every day 4. Feelin g tired or having little energy : nearly every day 5. Poor appeti te or overea ting: nearly every day 6. Feelin g bad about yourse lf - or that you are a failur e or have let yourse lf and your family down: nearly every day 7. Troubl e concen tratin g on things , such as readin g the newspa per or watchi ng televi gladis: nearly every day 8. Moving or speaki ng so slowly that other people could have notice d? - Or the opposi te - being so fidget y or restle ss that you have been moving around a lot more than usual: julya l days 9. Though ts that you would be better off or of hurtin g yourse lf in some way: nearly every day Total score: 25 Source : Leilao ped by Drs. Russell pulido, Jennifer Seay ms, Jaydon power and mikki staton, with an educat ional amadeo from [employer]. Suicid e Severi ty Rate CSSRS Have you wished you were or wished you could go to sleep and not wake up?: Yes Have you actual ly had any though ts of killin g yourse lf?: Yes CSSRS2 Have you been thinki ng about how you might do this?: Yes Have you had these though ts and had some intent ion of acting on them?: Yes Have you starte d to work out or worked out the detail s of how to kill yourse lf? Do you intend to carry out this plan?: Yes CSSRS3 Have you ever done anythi ng, starte d to do anythi ng or prepar ed to do anythi ng to end your life?: Yes CSSRS4 Was this within the past three months ?: Yes Screen ing Score Total Score: 8 Screen ing: Positi ve Mental Health Emerge ncy Note Releas e [facility] releas e signed :: Yes Reason for Visit In the last 2 weeks has the pt ady pond for ES prior to today? : Yes, ady pond at [facility] ED Non Suicid al Self Injury Liz t: No Safety Risk/H arm to Self or Others Curren t Ideati on to Harm Self or Others : Yes to self. Intent : yes, has intent . Plan: yes,cisneros s a plan. Histor y of suicid e attemp t: yes,hi story of suicid e attemp t report ed. Detail s of previo us suicid e attemp t: attemp t 12/30/23 Assses sment/ Mental Status Appear ance: Dishev eled Attitu de: Izaiah ative Behavi or: Unrema rkable Speech : Normal and Soft Affect : Normal Mood: Depres sed Though t proces s: Unrema rkable Halluc inatio ns: No eviden ce Delusi ons: No eviden ce Attent ion: Unrema rkable Percep tion: Not impair ed Harbeson ation: Fully orient ated Memory : Intact Insigh t: Good Judgem ent: Good Neurov egetat viviana Sympto ms Sleep: Increa se Appeti tie: Decrea se Intere sts: Decrea se Energy : Decrea se Libido : Not applic able Substa nce Use: Have you used substa nces in the last 7 days?: No Impres gladis Client report ed to this short story writer that she has recent ly left [facility]. Client believ ed that she receiv ed all the servic es and suppor t that she needed to be safe in her day to day. Client releas ed from [facility] and began to strugg le again with her mental health . Client report ed that she is experi encing an increa se in her SI and is 'scare d' of her though ts. Client report ed plans, intent , and access to this short story writer . Client report ed the plans of jumpkristofer g off her buildi ng's roof, jumpin g off [place] , drive her car really fast and get into an accide nt, and trying to hang hersel f again. Client report ed access to medica tions and sharps , client does not have access to anythi ng she can hang hersel f with. Client report ed no substa nce use at this time. Client report ed having a suppor t system of her ex- husban d and friend s. Client appear ed to this short story writer as depres sed. Client report ed to this short story writer that she regret s sushma yee [facility] so soon, and needs furthe r suppor t offere d in a inpati ent facili ty. Client scored a 25/27 on the PHQ-9 and answer ed yes to all the CSSRS questi ons. Client was izaiah ative during the assess ment proces s and answer ed all this short story writer s??? questi ons. Plan/D isposi tion Recomm ended Dispos ition: Hospit alizat ion No. Plan: Client will remain at [facility] ED in Zone B until placem ent is found for her liz olmedo persis tent SI. Client will need daily reasse ssment s until placem ent is found. Report s/comm unicat ion Outcom e discus sed with: ED/Per sonnel cc: ------ ------ ------ ------ ------ ------ ------ ------ ------ ------ ------ --- Dictat ed by: Shireen Patino itjanet Dictat ed: Time: 16 17 Date: 1621 Date: Date: Transc ribed Date: Transc ribed Time: 161 By: TOPHER This is privil eged, confid ential inform ation, intend ed only for the provid er named. Any use or distri bution by any person other than this provid er is strict ly prohib ited. If you receiv e this report in error, please notify us immedi russly at [phone] and return the origin al report to us at the addres s above. Thank you. [facility] [address] [place], [address] 01/08/2024 11:00:44 01/07/20 24 01/07/2024 ED visit note ED Visit Note SURENDRA Olmedo NAME: Edgardo alexNaya power Sherice UNIT #: [id number] ADMITT ING PROVID ER: Cisco French M.D. ACCOUN T #: [id number] PRIMAR Y CARE PROVID ER: MANISHA ELLIS MD DATE OF ADMIT: : 1974 HPI Genera l Mode of arriva l: ambula tory . Date/T renan Provid er Initia salty Docume ntatio n: 13:26 . Limita tions to Docume ntatio n: no limita tions . Inform ation obtain ed by: surendra olmedo . HPI Narrat viviana: 48-yea r-old female with histor y of depres gladis presen ts volunt arily for suicid al ideati on. Surendra olmedo was seen here and evalua salty for suicid al ideati on on 12/31/19. She was transf erred to [facility] for ongoin g psychi atric treatm ent. She notes the care she was receiv ing at [facility] was excell ent but that she had to leave given concer ns about her daught er's wellbe ing. Her daught er suffer s from psychi atric illnes s hersel f and the surendra olmedo felt that she was in need while she was away. Surendra olmedo states that since she left the hospit mo she has had contin ued depres gladis and recent ly had though ts of jumpin g off of her roof or slitti ng her wrist. 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 Surendra olmedo is reques ting to be transf erred back to [facility] if possib le but unders tands that if this is not possib le she is willin g to receiv e treatm ent at [facility]. Surendra olmedo does have comple x medica l histor y includ ing hypert rophic cardio myopat hy. No active medica l concer ns at this time. Relate d Data Home Medica tions Medica tion Instru ctions Record ed Confir med rosuva statin 5 mg tablet (Crest or) 10 mg PO QPM ribofl liliam (vitam in B2) 50 mg 200 mg PO BID tablet (Vitam in B-2) levoth yroxin e 25 mcg tablet 50 mcg PO HS (Synth roid) albute rol sulfat e 90 mcg/ac tuatio n 2 puff inhala tion QID PRN aeroso l inhale r (Alvaro janet HFA) naloxo ne 4 mg/act uation nasal 1 spray intran neela ONCE PRN spray (Narca n) omepra zole 20 mg capsul e,karina yed 20 mg PO DAILY releas e prochl orpera zine maleat e 10 mg 10 mg PO DAILY PRN Headac he tablet valacy clovir 1 gram tablet 500 mg PO QHS aspiri n 81 mg tablet ,delay ed 81 mg PO DAILY Preven t blood clot releas e #14 tabs polyet hylene glycol 3350 17 17 g PO DAILY PRN gram/d ose oral powder naratr iptan 2.5 mg tablet 2.5 mg PO BID PRN estrad iol 1 mg tablet See Rx Instru ctions .Route .COMPL EX cholec alcife rol (vitam in D3) 50 50 mcg PO DAILY mcg (2,000 unit) capsul e metfor min 500 mg tablet ,exten ded 1,000 mg PO BID releas e 24 hr dulagl utide 1.5 mg/0.5 mL 3 mg subcut QWEEK subcut aneous pen inject or ([facility]) hydroc ortiso ne 2.5 % topica l cream 1 applic topica l QID #30 grams naprox en 250 mg tablet 500 mg PO BID PRN acetam inophe n 500 mg capsul e 1,000 mg (2 x 500 mg) PO Q8H PRN PRN #30 caps lamotr igine 100 mg tablet 150 mg PO HS (Lamic karla) clonaz epam 1 mg tablet 1 mg PO BID PRN melato jerry 10 mg tablet 10 mg PO HS PRN buprop ion HCl 150 mg tablet ,12 hr 150 mg PO BID sustai ene-re lease (Wellb utrin SR) lorata dine 10 mg capsul e 10 mg PO DAILY cyanoc obalam in (vitam in B-12) 1,000 mcg PO DAILY 1,000 mcg tablet dapagl iflozi n propan ediol 5 mg 5 mg PO DAILY tablet (Far ga) duloxe sonny 30 mg capsul e,karina yed 30 mg PO DAILY releas e hydrom orphon e 2 mg tablet 4 mg PO BID icosap ent ethyl 1 gram capsul e 2 g PO BID (Herlinda desir) pregab deonna 100 mg capsul e 100 mg PO TID sacubi tril 97 mg-nichelle sartan 103 mg 1 tab PO BID tablet (Entre sto) magnes ium oxide 400 mg (241.3 mg 400 mg PO HS #0 tabs magnes ium) tablet metopr olol tartra te 25 mg tablet 12.5 mg (1/2 x 25 mg) PO BID #0 tabs buprop ion HCl 150 mg 24 hr tablet , 150 mg PO BID extend ed releas e Previo us Rx's Medica tion Instru ctions Record ed aspiri n 81 mg tablet ,delay ed 81 mg PO DAILY Preven t blood clot releas e #14 tabs hydroc ortiso ne 2.5 % topica l cream 1 applic topica l QID #30 grams acetam inophe n 500 mg capsul e 1,000 mg (2 x 500 mg) PO Q8H PRN PRN #30 caps magnes ium oxide 400 mg (241.3 mg 400 mg PO HS #0 tabs magnes ium) tablet metopr olol tartra te 25 mg tablet 12.5 mg (1/2 x 25 mg) PO BID #0 tabs Allerg ies Allerg y/AdvR eac Type Severi ty Reacti on Status Date / Time Penici llins Allerg y Severe throat Verifi ed 13:02 closes Sulfa (Sulfo namide Allerg y Mild Hives Verifi ed 13:02 Antibi otics) lactos e AdvRea c Diarrh ea Verifi ed 13:02 Genera l Stated Compla int: PsychE nichelle RENATO: 2 Review of System s All system s review ed are unrema rkable except as noted in HPI and below Psychi atric Psychi atric: Report s as per HPI Commen ts: Chroni c low back pain Exam Const Genera l: izaiah ative Harbeson ation: alert and awake HENMT Mouth: moist mucous membra lucas Eyes Conjun ctivae : normal conjun ctivae Sclera : normal sclera e Neck Neck: trache a midlin e and supple Resp Auscul tation : clear to auscul tation bilate rally, no rales, no rhonch i and no wheeze s Cardio Rate: regula r rate and tachyc ardic Rhythm : regula r rhythm GI Palpat ion: soft, not firm, no guardi ng, no masses , not rigid and nonten antonio Skin Genera l skin exam: no rashes or lesion s noted Neuro Genera l: patien t alert, patien t awake, patien t orient ed x3 and tone normal Extrem Genera l: no edema Psych Appear ance: grossl y normal Mental Status : mental status grossl y normal and other (depre ssed) Mood: anxiou s mood and other (depre ssed) Affect : sad and blunte d Attitu de: izaiah ative Though t Proces s: normal Though t Conten t: suicid ality Insigh t: insigh t good Course Vital Signs Vital signs: Vital Signs Temper ature 36.4 C L 02/15/ 24 12:59 Pulse 112 H 12:59 Respir atory Rate 18 12:59 Blood Pressu re 116/72 12:59 Pulse Oximet ry 94 12:59 Temper ature 36.4 C L 12:59 Temper ature Source Tympan ic 12:59 Pulse 112 H 12:59 Respir atory Rate 18 12:59 Respir atory Effort Normal , Non-La bored 13:07 Blood Pressu re 116/72 12:59 Pulse Oximet ry 94 12:59 Oxygen Delive ry Method Room Air 12:59 Oxygen Flow Rate 0 12:59 Medica l Decisi on Making 1404 -- 48-yea r-old female with histor y of depres gladis, recent ly hospit alized for suicid al ideati on, left prior to comple ting treatm ent to care for her daught er, return s now with persis tent and worsen ing suicid ality, here volunt arily reques ting inpati ent treatm ent. Surendra olmedo is tachyc ardic which I suspec t is second verona to her anxiet y. Diagno stic labs sent as part of medica l screen ing. -- Medica l screen ing exam was perfor med and no acute medica l condit ion was identi fied. Surendra olmedo seen by crisis screen er and plan will be for inpati ent psychi atric treatm ent. Lab Data Lab result s review ed: Yes I review ed the surendra olmedo's lab result s. Labs: Valentinaa reggie Tests Range/ Units 13:13 13:22 WBC (4.4-1 0.8) 10 3/uL 8.49 RBC (3.93- 5.22) 10 6/uL 5.20 Hgb (11.2- 15.7) g/dL 15.6 Hct (36.0- 46.0) % 47.1 H MCV (80-95 ) fL 91 MCH (27.0- 33.0) pg 30.0 MCHC (32.0- 36.0) % 33.1 RDW (11.7- 14.6) % 13.2 Plt Count (130-4 00) 10 3/uL 251 MPV (8.0-1 1.0) fL 10.4 Immatu re Gran % 0.1 Neutro phils % 47.4 Lympho cytes % 43.5 Monocy willy % 5.5 Eosino phils % 2.7 Basoph ils % 0.8 Nuclea salty RBC % (0.0-0 .3) % 0.0 Absolu te Neutro phils (1.2-6 .7) 10 3/uL 4.02 Absolu te Lympho cytes (1.2-3 .4) 10 3/uL 3.69 H Absolu te Monocy willy (0.1-0 .8) 10 3/uL 0.47 Absolu te Eosino phils (0.0-0 .7) 10 3/uL 0.23 Absolu te Basoph ils (0.0-0 .2) 10 3/uL 0.07 Sodium (136-1 45) mmol/L 142 Potass ium (3.5-5 .1) mmol/L 3.9 Chlori de (98-10 7) mmol/L 103 Carbon Dioxid e (21.0- 32.0) mmol/L 28.6 Anion Gap (3-11) mmol/L 10.4 BUN (7-18) mg/dL 12 Creati nine (0.55- 1.02) mg/dL 0.8 Est GFR (CKD-E PI 2020) (mL/mi n/1.73 m2) 90.83 Glucos e (74-10 6) mg/dL 114 H Calciu m (8.5-1 0.1) mg/dL 9.3 Total Biliru bin (0.2-1 .0) mg/dL 0.6 AST (15-37 ) U/L 18 ALT (14-59 ) U/L 28 Alkali ne Phosph atase (46-11 6) U/L 52 Total Protei n (6.4-8 .2) g/dL 7.6 Albumi n (3.4-5 .0) g/dL 4.0 TSH (0.36- 3.74) uIU/mL 1.76 Urine Color (Yello w) Dark Yellow Urine Clarit y (Clear ) Clear Urine pH (5-8) 5.5 Ur Specif ic Gravit y (1.005 -1.025 ) >= 1.030 H Urine Protei n (Neg-T race) mg/dL 30 H Urine Ketone s (Negat viviana) mg/dL 15 H Urine Blood (Negat viviana) Negati ve Urine Nitrit e (Negat viviana) Negati ve Urine Biliru bin (Negat viviana) Small H Urine Urobil inogen (Up to 0.2) mg/dL 1.0 H Ur Leukoc yte Estera se (Negat viviana) Negati ve Urine RBC (0-2) HPF Negati ve Urine WBC (0-5) HPF Negati ve Ur Epithe lial Cells (Negat viviana) HPF Modera te Urine Narcisa ls (Negat viviana) HPF Negati ve Urine Bacter ia (Negat viviana) HPF Rare Urine Casts (Negat viviana) LPF 10-20 Hyalin e Urine Mucus (Negat viviana) Modera te Ur Cultur e Indica salty? No Urine Glucos e (Negat viviana) mg/dL 500 H Salicy lates (<2.8) mg/dL < 2.8 Acetam inophe n (10-30 ) ug/mL < 2 Ethyl Alcoho l (<10) mg/dL < 3.0 Qualit y:SDOH Health Relate d Social Needs: No Data to Displa y PFSH All Active Proble ms (Updat ed @ 00:01 by SHARMAINE ECHOLS ) Depres gladis (Chron ic) Intent ional benzod iazepi ne overdo se (Acute ) Patell ofemor al arthri tis of left knee (Acute ) Pulmon verona hypert ension (Chron ic) Acute respir atory failur e with hypoxi a (Acute ) Pulmon verona edema (Acute ) Acute respir atory distre ss (Acute ) COVID- 19 (Acute ) Bilate ral carpal tunnel syndro me (Acute ) S/P R ECTR: 022 Amplif ied muscul oskele karla pain (Acute ) Tendon itis of long head of biceps brachi i of right should er (Acute ) Bursit is of right should er (Acute ) Trauma tic tear of right rotato r cuff (Acute ) Calcif ic tendin itis of right should er (Acute ) 40mg depo-m edrol inject ion: 2021 Latera l epicon dyliti s of right elbow (Acute ) 40mg depo-m edrol inject ion: [address] positi ve stools (Acute ) Cardio myopat hy (Chron ic) last echoca rdiogr am 01/28/20 19, LVEF 50-55% , no region al wall motion abnorm alitie s, mild LVH, mild MR; normal RV size and functi on Bipola r disord er (Chron ic) Dilate d cardio myopat hy second verona to peripa rtum heart diseas e (Acute ) Atypic al chest pain (Acute ) Type 2 diabet es mellit us (Chron ic) Palpit ations (Acute ) Spell of altere d consci ousnes s (Acute ) Elevat ed brain natriu retic peptid e (BNP) level (Acute ) Chest pain (Acute ) Screen ing for colon cancer (Acute ) Tobacc o use (Acute ) Fecal occult blood test positi ve (Acute ) Medica l Histor y (Revie thu @ 16:26 by Ajay Yuan MD) Acute kidney injury Anxiet y Basila r migrai ne (03/07) contro l (01/25) Bursit is of left should er ( 9) CAD (coron verona artery diseas e) mild non-ob struct viviana diseas e per cardia c cath report from [facility] 2012, more recent repeat cath unchan ged but with pulmon verona HTN Carpal tunnel syndro me, left 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 Change in mental status Chroni c migrai ne (03/07) Chroni c pain syndro me Dehydr ation Depres gladis Diabet es Discha rge planni ng issues Dizzin ess, nonspe cific Dyspne a Elbow fractu re, right Fatigu e Hyperl ipidem ia Hypert hyroid ism Imping ement syndro me of left should er ( ) Lactos e intole polo Left rotato r cuff tear ( ) Medica tion overus e headac he (03/07) Migrai ne headac he with aura (03/07) Migrai ne headac he withou t aura (03/07) Morbid obesit y Myalgi a Orthos tasis Polycy stic ovarie s Shortn ess of breath Spleno megaly Suicid al ideati on Tachyc ardia Tendin itis of long head of biceps brachi i of left should er ( ) Unresp onsive episod e Urinar y incont inence Surgic al Histor y (Revie thu @ 16:26 by Ajay Yuan MD) Histor y of arthro scopy of left should er Histor y of robert an sectio n x2 Histor y of endome trial ablati on Hx of cardia c cathet erizat ion 1-no stent placed Previo us back surger y S/P hyster ectomy Social Histor y (Revie thu @ 16:26 by Ajay Yuan MD) 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 : Former [place] o Use Quit status : quit date establ ished Smokin g risk assess ment perfor med?: Yes Alcoho l Intake : never Drug use: Never Substa nce use type: does not use Number of Childr en: 3 Curren t gender identi ty: female What is your relati onship status ?: divorc ed Panel score (0-1 are the most social ly isolat ed patien ts): 0 What type of physic al activi ty do you partic ipate in: none Do you feel safe at home: Yes Do you feel safe in your relati onship ?: Yes Female Reprod uctive Histor y Menstr ual contro l method : perman ent steril izatio n Discha rge Plan Discha rge Detail s Chief Compla int: PsychE nichelle Primar y Care Provid er: Manisha Ellis ED Provid er: Cisco French Home Meds and New Rx's Prescr iption s: No Action naprox en 250 mg tablet 500 mg PO BID PRN Hold Instru ctions : Hold until PCP f/u clonaz epam 1 mg tablet 1 mg PO BID PRN melato jerry 10 mg tablet 10 mg PO HS PRN lorata dine 10 mg capsul e 10 mg PO DAILY buprop ion HCl [Wellb utrin SR] 150 mg tablet sustai ene-re lease 12 hr 150 mg PO BID cholec alcife rol (vitam in D3) 50 mcg (2,000 unit) capsul e 50 mcg PO DAILY metfor min 500 mg tablet extend ed releas e 24 hr 1,000 mg PO BID Trulic ity 1.5 mg/0.5 mL pen inject or 3 mg subcut QWEEK Hold Instru ctions : Until f/u with PCP or if blood glucos e levels begin to rise Rx Instru ctions : - on ays rosuva statin [Crest or] 5 MG tablet 10 mg PO QPM naratr iptan 2.5 mg tablet 2.5 mg PO BID PRN ribofl liliam (vitam in B2) [Vitam in B-2] 50 MG tablet 200 mg PO BID polyet hylene glycol 3350 17 gram/d ose Powder 17 g PO DAILY PRN cyanoc obalam in (vitam in B-12) 1,000 mcg tablet 1,000 mcg PO DAILY Patien t Commen ts: TAKE ONE TABLET BY MOUTH EVERY DAY duloxe sonny 30 mg capsul e,karina yed releas e(DR/E C) 30 mg PO DAILY Patien t Commen ts: Take 1 capsul e by mouth once a day to replac e paxil which she will wean off icosap ent ethyl [Herlinda pa] 1 gram capsul e 2 g PO BID Patien t Commen ts: TAKE TWO CAPSUL ES BY MOUTH TWICE A DAY Farxig a 5 mg tablet 5 mg PO DAILY Patien t Commen ts: Take 1 tablet by mouth once a day hydrom orphon e 2 mg tablet 4 mg PO BID Patien t Commen ts: TAKE TWO TABLET S BY MOUTH TWICE A DAY Entres to 97-103 mg tablet 1 tab PO BID Hold Instru ctions : Hold until PCP f/u or if SBP is consis tently > 120 mmHg Patien t Commen ts: TAKE ONE TABLET BY MOUTH TWICE A DAY pregab deonna 100 mg capsul e 100 mg PO TID ts: Take 1 capsul e by mouth three times a day metopr olol tartra te 25 mg Tablet 12.5 mg PO BID Qty: 0 0RF magnes ium oxide 400 MG tablet 400 mg PO HS Qty: 0 0RF levoth yroxin e [Synth roid] 25 MCG tablet 50 mcg PO HS omepra zole 20 mg Capsul e,Karina yed Releas e(/E c) 20 mg PO DAILY prochl orpera zine maleat e 10 mg Tablet 10 mg PO DAILY PRN (Reaso n: Headac he) albute rol sulfat e [Alvaro janet HFA] 90 mcg/ac tuatio n Hfa Aeroso l Inhale r 2 puff INHALA TION QID PRN naloxo ne [Narca n] 4 mg/act uation Camak, Non-Ae rosol 1 spray INTRAN NEELA ONCE PRN ts: Never used. valacy clovir 1 gram tablet 500 mg PO QHS aspiri n 81 mg tablet ,delay ed releas e (DR/EC ) 81 mg PO DAILY Qty: 14 0RF Rx Instru ctions : Take 1 daily with a meal for 30 days estrad iol 1 mg tablet See Rx Instru ctions .ROUTE .COMPL EX ts: TAKE 1 TABLET BY MOUTH EVERY MORNIN G THEN 2 TABLET S EVERY EVENIN G Rx Instru ctions : --> 1mg qAM and 1.5m,g qPM hydroc ortiso ne 2.5 % cream 1 applic topica l QID Qty: 30 6RF acetam inophe n 500 mg capsul e 1,000 mg PO Q8H PRN PRNQty : 30 0RF lamotr igine [Lamic karla] 100 mg tablet 150 mg PO HS ts: TAKE 1 TABLET BY MOUTH EVERY DAY buprop ion HCl 150 mg tablet extend ed releas e 24 hr 150 mg PO BID Pati ts: TAKE ONE TABLET BY MOUTH TWICE A DAY WITH MEALS cc: CIRILO GROVER, MANISHA ------ ------ ------ ------ ------ ------ ------ ------ ------ ------ ------ --- Dictat ed by: SHAHRAM GROVER,DIMAS Bishnu Dictat ed: Time: 1359 Date: 1656 Date: Date: Transc ribed Date: Transc ribed Time: 135 By: BLAIR Javier This is privil eged, confid ential inform ation, intend ed only for the provid er named. Any use or distri bution by any person other than this provid er is strict ly prohib ited. If you receiv e this report in error, please notify us immedi ately at and return the origin al report to us at the addres s above. Thank you. [facility] [address] [facility] [place], [address] 01/08/2024 11:00:43 01/08/20 24 01/07/2024 ED progr ess note ED Progre ss Note PATIEN T NAME: Naya Andrea UNIT #: [id number] ADMITT ING PROVID ER: Andie Mcintyre M.D. ACCOUN T #: [id number] PRIMAR Y CARE PROVID ER: MANISHA ELLIS MD DATE OF ADMIT: : 1974 Date of servic e: Time of Servic e: 23:20 Medica efrain Owens on Making This patien t was signed out to me. Please see previo us notes for H P and initia l eval. In brief, 48yo F presen ts volunt arily with SI. Medica janee west, [facility] recc volunt verona inpati ent placem ent. Signed out awabrandie bruce place ent. Overni ght appear ed to be sleepi ng restfu lly. Did not wake patien t for assess ment. Signed out to oneil chambersn, plan remain s as above. Qualit y:SDOH Health Relate d Social Needs: No Data to Displa y Sign Out Sign Out Data: Sign Out Commen t: Care signed out to Dr. D. Sabati no, please see my docume elenitihéctor n regard ing initia l ED presen tation and course . Plan at signou t is to contin ue to monito r until inpati ent treatm ent can be identi fied. Psychi atric consul t lesa jaclyn Barber t is bringi ng in her home medica tions that we do not have these in [facility]. Other home medica tions have been ordere d. Last update d by Cisco French MD at 17:16 Sign Out Commen t: lili griffith, SI, awabrandie ng placem ent Last update d by Shelli Pratt MD at 22:49 Discha rge Plan Discha rge Detail s Chief Compla int: PsychE nichelle Primar y Care Provid er: Manisha Ellis ED Provid er: Andie Mcintyre Home Meds and New Rx's Prescr iption s: No Action naprox en 250 mg tablet 500 mg PO BID PRN Hold Instru ctions : Hold until PCP f/u clonaz epam 1 mg tablet 1 mg PO BID PRN melato jerry 10 mg tablet 10 mg PO HS PRN lorata dine 10 mg capsul e 10 mg PO DAILY buprop ion HCl [Wellb utrin SR] 150 mg tablet sustai ene-re lease 12 hr 150 mg PO BID cholec alcife rol (vitam in D3) 50 mcg (2,000 unit) capsul e 50 mcg PO DAILY metfor min 500 mg tablet extend ed releas e 24 hr 1,000 mg PO BID Trulic ity 1.5 mg/0.5 mL pen inject or 3 mg subcut QWEEK Hold Instru ctions : Until f/u with PCP or if blood glucos e levels begin to rise Rx Instru ctions : - on ursd ays rosuva statin [Crest or] 5 MG tablet 10 mg PO QPM naratr iptan 2.5 mg tablet 2.5 mg PO BID PRN ribofl liliam (vitam in B2) [Vitam in B-2] 50 MG tablet 200 mg PO BID polyet hylene glycol 3350 17 gram/d ose Powder 17 g PO DAILY PRN cyanoc obalam in (vitam in B-12) 1,000 mcg tablet 1,000 mcg PO DAILY Patien t Comm ts: TAKE ONE TABLET BY MOUTH EVERY DAY duloxe sonny 30 mg capsul e,karina yoko releas e(/E C) 30 mg PO DAILY Patien t Comm ts: Take 1 capsul e by mouth once a day to replac e paxil which she will wean off icosap ent ethyl [Vasce pa] 1 gram capsul e 2 g PO BID Patien t Comm ts: TAKE TWO CAPSUL ES BY MOUTH TWICE A DAY Farxig a 5 mg tablet 5 mg PO DAILY Patien t Comm ts: Take 1 tablet by mouth once a day hydrom orphon e 2 mg tablet 4 mg PO BID Patien t Comm ts: TAKE TWO TABLET S BY MOUTH TWICE A DAY Entres to 97-103 mg tablet 1 tab PO BID Hold Instru ctions : Hold until PCP f/u or if SBP is consis tently > 120 mmHg Patien t Comm ts: TAKE ONE TABLET BY MOUTH TWICE A DAY pregab deonna 100 mg capsul e 100 mg PO TID Patien t ts: Take 1 capsul e by mouth three times a day metopr olol tartra te 25 mg Tablet 12.5 mg PO BID Qty: 0 0RF magnes ium oxide 400 MG tablet 400 mg PO HS Qty: 0 0RF levoth yroxin e [Synth roid] 25 MCG tablet 50 mcg PO HS omepra zole 20 mg Capsul e,Karina yoko Releas e(/E c) 20 mg PO DAILY prochl orpera zine maleat e 10 mg Tablet 10 mg PO DAILY PRN (Reaso n: Headac he) albute rol sulfat e [Alvaro janet HFA] 90 mcg/ac tuatio n Hfa Aeroso l Inhale r 2 puff INHALA TION QID PRN naloxo ne [Narca n] 4 mg/act uation Camak, Non-Ae rosol 1 spray INTRAN NEELA ONCE PRN Patien t ts: Never used. valacy clovir 1 gram tablet 500 mg PO QHS aspiri n 81 mg tablet ,delay ed releas e (/EC ) 81 mg PO DAILY Qty: 14 0RF Rx Instru ctions : Take 1 daily with a meal for 30 days estrad iol 1 mg tablet See Rx Instru ctions .ROUTE .COMPL EX Patien t Commen ts: TAKE 1 TABLET BY MOUTH EVERY MORNIN G THEN 2 TABLET S EVERY EVENIN G Rx Instru ctions : --> 1mg qAM and 1.5m,g qPM hydroc ortiso ne 2.5 % cream 1 applic topica l QID Qty: 30 6RF acetam inophe n 500 mg capsul e 1,000 mg PO Q8H PRN PRNQty : 30 0RF lamotr igine [Lamic karla] 100 mg tablet 150 mg PO HS Patistephanie olmedo Commen ts: TAKE 1 TABLET BY MOUTH EVERY DAY buprop ion HCl 150 mg tablet extend ed releas e 24 hr 150 mg PO BID Patistephanie t Commen ts: TAKE ONE TABLET BY MOUTH TWICE A DAY WITH MEALS cc: MANISHA ELLIS MD ------ ------ ------ ------ ------ ------ ------ ------ ------ ------ ------ --- Dictat ed by: Andie Mcintyre M.D. Dictat ed: Time: 2319 Date: 650 Date: Date: Transc ribed Date: Transc ribed Time: 2319 By: LA This is privil eged, confid ential inform ation, intend ed only for the provid er named. Any use or distri bution by any person other than this provid er is strict ly prohib ited. If you receiv e this report in error, please notify us immedi tova at and return the origin al report to us at the addres s above. Thank you. [facility] [address] [place], [address] 01/08/2024 11:00:44 01/08/20 24 01/08/2024 ED progr ess note ED Progre ss Note PATISTEPHANIE Olmedo NAME: Edgardo alexNaya power Sherice UNIT #: [id number] ADMITT ING PROVID ER: Wanda Ricardo M.D. ACCOUN T #: [id number] PRIMAR Y CARE PROVID ER: MANISHA ELLIS MD DATE OF ADMIT: : 1974 Date of servic e: Time of Servic e: 07:09 Medica l Sarthaki on Making 48-yea r-old female seekin g volunt [place] placem ent for depres gladis and suicid al ideati ons, no report ed issues overni ght. No acute compla ints. Will contin ue to monito r until safe dispos ition found Qualit y:SDOH Health Relate d Social Needs: No Data to Displa y Sign Out Sign Out Data: Sign Out Commen t: Care signed out to Dr. Jeremiah Metz no, please see my docume ntatio n regard ing initia l ED presen tation and course . Plan at signou t is to contin ue to monito r until inpati ent treatm ent can be identi fied. Psychi atric consul t pendkristofer g. Patien t is bringi ng in her home medica tions that we do not have these in [facility]. Other home medica tions have been ordere d. Last update d by Cisco French MD at 17:16 Sign Out Commen t: depres gladis, SI, awaiti ng placem ent Last update d by Shelli Pratt MD at 22:49 Sign Out Commen t: 48yo F, SI, medica lly cleare d, home meds in, pendin g volunt [place] placem ent. Last update d by Andie Mcintyre MD at 06:53 Discha rge Plan Discha rge Detail s Chief Compla int: PsychE nichelle Primar y Care Provid er: Manisha Ellis ED Provid er: Wanda Ricardo Home Meds and New Rx's Prescr iption s: No Action naprox en 250 mg tablet 500 mg PO BID PRN Hold Instru ctions : Hold until PCP f/u clonaz epam 1 mg tablet 1 mg PO BID PRN melato jerry 10 mg tablet 10 mg PO HS PRN lorata dine 10 mg capsul e 10 mg PO DAILY buprop ion HCl [Wellb utrin SR] 150 mg tablet sustai ene-re lease 12 hr 150 mg PO BID cholec alcife rol (vitam in D3) 50 mcg (2,000 unit) capsul e 50 mcg PO DAILY metfor min 500 mg tablet extend ed releas e 24 hr 1,000 mg PO BID Trulic ity 1.5 mg/0.5 mL pen inject or 3 mg subcut QWEEK Hold Instru ctions : Until f/u with PCP or if blood glucos e levels begin to rise Rx Instru ctions : - on Thursd ays rosuva statin [Crest or] 5 MG tablet 10 mg PO QPM naratr iptan 2.5 mg tablet 2.5 mg PO BID PRN ribofl liliam (vitam in B2) [Vitam in B-2] 50 MG tablet 200 mg PO BID polyet hylene glycol 3350 17 gram/d ose Powder 17 g PO DAILY PRN cyanoc obalam in (vitam in B-12) 1,000 mcg tablet 1,000 mcg PO DAILY Patien t Commen ts: TAKE ONE TABLET BY MOUTH EVERY DAY duloxe sonny 30 mg capsul e,karina yed releas e(DR/E C) 30 mg PO DAILY Patien t Commen ts: Take 1 capsul e by mouth once a day to replac e paxil which she will wean off icosap ent ethyl [Herlinda desir] 1 gram capsul e 2 g PO BID Patien t Commen ts: TAKE TWO CAPSUL ES BY MOUTH TWICE A DAY Farxig a 5 mg tablet 5 mg PO DAILY Patien t Comm ts: Take 1 tablet by mouth once a day hydrom orphon e 2 mg tablet 4 mg PO BID Patien t Commen ts: TAKE TWO TABLET S BY MOUTH TWICE A DAY Entres to 97-103 mg tablet 1 tab PO BID Hold Instru ctions : Hold until PCP f/u or if SBP is consis tently > 120 mmHg Patien t Commen ts: TAKE ONE TABLET BY MOUTH TWICE A DAY pregab deonna 100 mg capsul e 100 mg PO TID Patien t Commen ts: Take 1 capsul e by mouth three times a day metopr olol tartra te 25 mg Tablet 12.5 mg PO BID Qty: 0 0RF magnes ium oxide 400 MG tablet 400 mg PO HS Qty: 0 0RF levoth yroxin e [Synth roid] 25 MCG tablet 50 mcg PO HS omepra zole 20 mg Capsul e,Karina yed Releas e(Dr/E c) 20 mg PO DAILY prochl orpera zine maleat e 10 mg Tablet 10 mg PO DAILY PRN (Reaso n: Headac he) albute rol sulfat e [Alvaro janet HFA] 90 mcg/ac tuatio n Hfa Aeroso l Inhale r 2 puff INHALA TION QID PRN naloxo ne [Narca n] 4 mg/act uation Camak, Non-Ae rosol 1 spray INTRAN NEELA ONCE PRN Patien t Comm ts: Never used. valacy clovir 1 gram tablet 500 mg PO QHS aspiri n 81 mg tablet ,delay ed releas e (DR/EC ) 81 mg PO DAILY Qty: 14 0RF Rx Instru ctions : Take 1 daily with a meal for 30 days estrad iol 1 mg tablet See Rx Instru ctions .ROUTE .COMPL EX Patien t Comm ts: TAKE 1 TABLET BY MOUTH EVERY MORNIN G THEN 2 TABLET S EVERY EVENIN G Rx Instru ctions : --> 1mg qAM and 1.5m,g qPM hydroc ortiso ne 2.5 % cream 1 applic topica l QID Qty: 30 6RF acetam inophe n 500 mg capsul e 1,000 mg PO Q8H PRN PRNQty : 30 0RF lamotr igine [Lamic karla] 100 mg tablet 150 mg PO HS Pati t Comm ts: TAKE 1 TABLET BY MOUTH EVERY DAY buprop ion HCl 150 mg tablet extend ed releas e 24 hr 150 mg PO BID Patien t Comm ts: TAKE ONE TABLET BY MOUTH TWICE A DAY WITH MEALS cc: MANISHA ELLIS MD ------ ------ ------ ------ ------ ------ ------ ------ ------ ------ ------ --- Dictat ed by: WANDA RICARDO MD ed: Time: 070 9 Date: 02708 Date: Date: Transc ribed Date: Transc ribed Time: 708 By: FELICITAS This is privil eged, confid ential inform ation, intend ed only for the provid er named. Any use or distri bution by any person other than this provid er is strict ly prohib ited. If you receiv e this report in error, please notify us immedi ately at [phone] and return the origin al report to us at the addres s above. Thank you. [facility] [address] [facility] [place], [address] 01/08/2024 11:00:45 01/08/20 24 01/08/2024 ED progr ess note ED Progre ss Note SURENDRA Olmedo NAME: Naya Andrea UNIT #: [id number] ADMITT ING PROVID ER: Prudencio Babcock M.D. ACCOUN T #: [id number] PRIMAR Y CARE PROVID ER: MANISHA ELLIS MD DATE OF ADMIT: : 1974 Date of servic e: Time of Servic e: 16:49 Medica l Decisi on Making I receiv ed signou t on this 48-yea r-old female in the emerge ncy depart ment in settin g of suicid al ideati on. She is medica lly cleare d. She is volunt [place]. No active behavi oral issues /shift . Will update docalie [facility] [place] and sign patien t out to the oncomi ng overni ght provid er. 8:04 PM Surendra olmedo had severa l episod es of nausea and 1 episod e of vomiti ng at 6 PM. She reques salty her outpat ient prochl orpera zine which I ordere d at 10 mg every 8 hours as needed . 9:55 PM No active behavi oral issues /shift . Will sign patien t out to oncomi ng overni ght provid er. Qualit y:SDOH Health Relate d Social Needs: No Data to Displa y Sign Out Sign Out Data: Sign Out Commen t: Care signed out to Dr. Jeremiah block, please see my docume magali n regard ing initia l ED presen tation and course . Plan at signou t is to contin ue to monito r until inpati ent treatm ent can be identi fied. Psychi atric consul t lesa eye. Patistephanie t is bringi ng in her home medica tions that we do not have these in [facility]. Other home medica tions have been ordere d. Last update d by Cisoc French MD at 17:16 Sign Out Commen t: depres gladis, SI, awaiti ng placem ent Last update d by Shelli Pratt MD at 22:49 Sign Out Commen t: 48yo F, SI, medica lly cleare d, home meds in, pendin g [facility] [place] placem ent. Last update d by Andie Mcintyre MD at 06:53 Sign Out Commen t: pendin g [facility] [place] placem ent for SI/dep ressio n, stable during shift Last update d by Wanda Ricardo MD at 16:14 Discha rge Plan Discha rge Detail s Chief Compla int: PsychE nichelle Primar y Care Provid er: Manisha Ellis ED Provid er: Prudencio Babcock Home Meds and New Rx's Prescr iption s: No Action naprox en 250 mg tablet 500 mg PO BID PRN Hold Instru ctions : Hold until PCP f/u clonaz epam 1 mg tablet 1 mg PO BID PRN melato jerry 10 mg tablet 10 mg PO HS PRN lorata dine 10 mg capsul e 10 mg PO DAILY buprop ion HCl [Wellb utrin SR] 150 mg tablet sustai ene-re lease 12 hr 150 mg PO BID cholec alcife rol (vitam in D3) 50 mcg (2,000 unit) capsul e 50 mcg PO DAILY metfor min 500 mg tablet extend ed releas e 24 hr 1,000 mg PO BID Trulic ity 1.5 mg/0.5 mL pen inject or 3 mg subcut QWEEK Hold Instru ctions : Until f/u with PCP or if blood glucos e levels begin to rise Rx Instru ctions : - on d ays rosuva statin [Crest or] 5 MG tablet 10 mg PO QPM naratr iptan 2.5 mg tablet 2.5 mg PO BID PRN ribofl liliam (vitam in B2) [Vitam in B-2] 50 MG tablet 200 mg PO BID polyet hylene glycol 3350 17 gram/d ose Powder 17 g PO DAILY PRN cyanoc obalam in (vitam in B-12) 1,000 mcg tablet 1,000 mcg PO DAILY Patien t Commen ts: TAKE ONE TABLET BY MOUTH EVERY DAY duloxe sonny 30 mg capsul e,karina yechristina releas e(DR/E C) 30 mg PO DAILY Patien t Commen ts: Take 1 capsul e by mouth once a day to replac e paxil which she will wean off icosap ent ethyl [Vasce pa] 1 gram capsul e 2 g PO BID Patien t Commen ts: TAKE TWO CAPSUL ES BY MOUTH TWICE A DAY Farxig a 5 mg tablet 5 mg PO DAILY Patien t Commen ts: Take 1 tablet by mouth once a day hydrom orphon e 2 mg tablet 4 mg PO BID Patien t Commen ts: TAKE TWO TABLET S BY MOUTH TWICE A DAY Entres to 97-103 mg tablet 1 tab PO BID Hold Instru ctions : Hold until PCP f/u or if SBP is consis tently > 120 mmHg Patien t Commen ts: TAKE ONE TABLET BY MOUTH TWICE A DAY pregab deonna 100 mg capsul e 100 mg PO TID Patien t Commen ts: Take 1 capsul e by mouth three times a day metopr olol tartra te 25 mg Tablet 12.5 mg PO BID Qty: 0 0RF magnes ium oxide 400 MG tablet 400 mg PO HS Qty: 0 0RF levoth yroxin e [Synth roid] 25 MCG tablet 50 mcg PO HS omepra zole 20 mg Capsul e,Karina yed Releas e(Dr/E c) 20 mg PO DAILY prochl orpera zine maleat e 10 mg Tablet 10 mg PO DAILY PRN (Reaso n: Headac he) albute rol sulfat e [Alvaro janet HFA] 90 mcg/ac tuatio n Hfa Aeroso l Inhale r 2 puff INHALA TION QID PRN naloxo ne [Narca n] 4 mg/act uation Camak, Non-Ae rosol 1 spray INTRAN NEELA ONCE PRN Patien t ts: Never used. valacy clovir 1 gram tablet 500 mg PO QHS aspiri n 81 mg tablet ,delay ed releas e (DR/EC ) 81 mg PO DAILY Qty: 14 0RF Rx Instru ctions : Take 1 daily with a meal for 30 days estrad iol 1 mg tablet See Rx Instru ctions .ROUTE .COMPL EX Patien t Comm ts: TAKE 1 TABLET BY MOUTH EVERY MORNIN G THEN 2 TABLET S EVERY EVENIN G Rx Instru ctions : --> 1mg qAM and 1.5m,g qPM hydroc ortiso ne 2.5 % cream 1 applic topica l QID Qty: 30 6RF acetam inophe n 500 mg capsul e 1,000 mg PO Q8H PRN PRNQty : 30 0RF lamotr igine [Lamic karla] 100 mg tablet 150 mg PO HS Pati t ts: TAKE 1 TABLET BY MOUTH EVERY DAY buprop ion HCl 150 mg tablet extend ed releas e 24 hr 150 mg PO BID Patien t ts: TAKE ONE TABLET BY MOUTH TWICE A DAY WITH MEALS cc: MANISHA ELLIS MD ------ ------ ------ ------ ------ ------ ------ ------ ------ ------ ------ --- Dictat ed by: Prudencio Babcock M.D. Dictat ed: Time: 164 9 Date: 2155 Date: Date: Transc ribed Date: Transc ribed Time: 1648 By: RUDY This is privil eged, confid ential inform ation, intend ed only for the provid er named. Any use or distri bution by any person other than this provid er is strict ly prohib ited. If you receiv e this report in error, please notify us immjadei tova at [phone] and return the origin al report to us at the addres s above. Thank you. [facility] [address] [facility] [place], [address] 01/09/2024 17:04:48 01/08/20 24 01/08/2024 ED progr ess note ED Progre ss Note SURENDRA Olmedo NAME: Naya Andrea UNIT #: [id number] ADMITT ING PROVID ER: Wanda Ricardo M.D. ACCOUN T #: [id number] PRIMAR Y CARE PROVID ER: MANISHA ELLIS MD DATE OF ADMIT: : 1974 Addend a I receiv ed signou t on this patien t. Please see my separa te note for detail s. Addend um dictat ed by Prudencio Babcock M.D. 2322 Transc ribed By: Prudencio olmedo 2322 Cosign ed by Date of servic e: Time of Servic e: 07:09 Medica l Decisi on Making 48-yea r-old female seekin g [facility] [place] placem ent for depres gladis and suicid al ideati ons, no report ed issues overni ght. No acute compla ints. Will contin ue to monito r until safe dispos ition found Qualit y:SDOH Health Relate d Social Needs: No Data to Displa y Sign Out Sign Out Data: Sign Out Commen t: Care signed out to Dr. Jeremiah Metz no, please see my docume ntatio n regard ing initia l ED presen tation and course . Plan at signou t is to contin ue to monito r until inpati ent treatm ent can be identi fied. Psychi atric consul t pendin jaclyn olmedo is bringi ng in her home medica tions that we do not have these in [facility]. Other home medica tions have been ordere d. Last update d by Cisco French MD at 17:16 Sign Out Commen t: depres gladis, SI, awaiti ng placem ent Last update d by Shelli Pratt MD at 22:49 Sign Out Commen t: 48yo F, SI, medica lly cleare d, home meds in, pendin g [facility] [place] placem ent. Last update d by Andie Mcintyre MD at 06:53 Discha rge Plan Discha rge Detail s Chief Compla int: PsychE nichelle Primar y Care Provid er: Manisha Ellis ED Provid er: Wanda Ricardo Home Meds and New Rx's Prescr iption s: No Action naprox en 250 mg tablet 500 mg PO BID PRN Hold Instru ctions : Hold until PCP f/u clonaz epam 1 mg tablet 1 mg PO BID PRN melato jerry 10 mg tablet 10 mg PO HS PRN lorata dine 10 mg capsul e 10 mg PO DAILY buprop ion HCl [Wellb utrin SR] 150 mg tablet sustai ene-re lease 12 hr 150 mg PO BID cholec alcife rol (vitam in D3) 50 mcg (2,000 unit) capsul e 50 mcg PO DAILY metfor min 500 mg tablet extend ed releas e 24 hr 1,000 mg PO BID Trulic ity 1.5 mg/0.5 mL pen inject or 3 mg subcut QWEEK Hold Instru ctions : Until f/u with PCP or if blood glucos e levels begin to rise Rx Instru ctions : - on Thursd ays rosuva statin [Crest or] 5 MG tablet 10 mg PO QPM naratr iptan 2.5 mg tablet 2.5 mg PO BID PRN ribofl liliam (vitam in B2) [Vitam in B-2] 50 MG tablet 200 mg PO BID polyet hylene glycol 3350 17 gram/d ose Powder 17 g PO DAILY PRN cyanoc obalam in (vitam in B-12) 1,000 mcg tablet 1,000 mcg PO DAILY Patien t Commen ts: TAKE ONE TABLET BY MOUTH EVERY DAY duloxe sonny 30 mg capsul e,karina yed releas e(DR/E C) 30 mg PO DAILY Patien t Commen ts: Take 1 capsul e by mouth once a day to replac e paxil which she will wean off icosap ent ethyl [Herlinda pa] 1 gram capsul e 2 g PO BID Patien t Commen ts: TAKE TWO CAPSUL ES BY MOUTH TWICE A DAY Farxig a 5 mg tablet 5 mg PO DAILY Patien t Comm ts: Take 1 tablet by mouth once a day hydrom orphon e 2 mg tablet 4 mg PO BID Patien t Comm ts: TAKE TWO TABLET S BY MOUTH TWICE A DAY Entres to 97-103 mg tablet 1 tab PO BID Hold Instru ctions : Hold until PCP f/u or if SBP is consis tently > 120 mmHg Patien t Comm ts: TAKE ONE TABLET BY MOUTH TWICE A DAY pregab deonna 100 mg capsul e 100 mg PO TID Patien t Comm ts: Take 1 capsul e by mouth three times a day metopr olol tartra te 25 mg Tablet 12.5 mg PO BID Qty: 0 0RF magnes ium oxide 400 MG tablet 400 mg PO HS Qty: 0 0RF levoth yroxin e [Synth roid] 25 MCG tablet 50 mcg PO HS omepra zole 20 mg Capsul e,Karina yed Releas e(Dr/E c) 20 mg PO DAILY prochl orpera zine maleat e 10 mg Tablet 10 mg PO DAILY PRN (Reaso n: Headac he) albute rol sulfat e [Alvaro janet HFA] 90 mcg/ac tuatio n Hfa Aeroso l Inhale r 2 puff INHALA TION QID PRN naloxo ne [Narca n] 4 mg/act uation Camak, Non-Ae rosol 1 spray INTRAN NEELA ONCE PRN Pati ts: Never used. valacy clovir 1 gram tablet 500 mg PO QHS aspiri n 81 mg tablet ,delay ed releas e (DR/EC ) 81 mg PO DAILY Qty: 14 0RF Rx Instru ctions : Take 1 daily with a meal for 30 days estrad iol 1 mg tablet See Rx Instru ctions .ROUTE .COMPL EX Patien t ts: TAKE 1 TABLET BY MOUTH EVERY MORNIN G THEN 2 TABLET S EVERY EVENIN G Rx Instru ctions : --> 1mg qAM and 1.5m,g qPM hydroc ortiso ne 2.5 % cream 1 applic topica l QID Qty: 30 6RF acetam inophe n 500 mg capsul e 1,000 mg PO Q8H PRN PRNQty : 30 0RF lamotr igine [Lamic karla] 100 mg tablet 150 mg PO HS Patien t Commen ts: TAKE 1 TABLET BY MOUTH EVERY DAY buprop ion HCl 150 mg tablet extend ed releas e 24 hr 150 mg PO BID Patistephanie t Commen ts: TAKE ONE TABLET BY MOUTH TWICE A DAY WITH MEALS cc: MANISHA ELLIS MD ------ ------ ------ ------ ------ ------ ------ ------ ------ ------ ------ --- Dictat ed by: BRADEN GROVER, WANDA Suarez Dictat ed: Time: 070 9 Date: 708 Date: Date: Transc ribed Date: Transc ribed Time: 708 By: FELICITAS This is privil eged, confid ential inform ation, intend ed only for the provid er named. Any use or distri bution by any person other than this provid er is strict ly prohib ited. If you receiv e this report in error, please notify us immedi ately at and return the origin al report to us at the addres s above. Thank you. [facility] [address] [place], [address] 01/09/2024 17:04:48 01/09/20 24 01/08/2024 ED progr ess note ED Progre ss Note SURENDRA Olmedo NAME: Naya Andrea UNIT #: [id number] ADMITT ING PROVID ER: Andie Mcintrye M.D. ACCOUN T #: [id number] PRIMAR Y CARE PROVID ER: MANISHA ELLIS MD DATE OF ADMIT: : 1974 Date of servic e: Time of Servic e: 23:12 Medica efrain Owens on Making This surendra olmedo was signed out to me. Please see previo us notes for H P and initia l eval. In brief, 48yo F awaiti ng [facility] ent for SI. Overmed ght appear ed to be sleepi ng comfor tably. No behavi oral issues . Did not wake patien t for assess ment. Signed out to oncomchai bruce physic ketan, plan remain s as above. Qualit y:SDOH Health Relate d Social Needs: No Data to Displa y Sign Out Sign Out Data: Sign Out Commen t: Care signed out to Dr. Jeremiah Metz no, please see my docume ntatio n regard ing initia l ED presen tation and course . Plan at signou t is to contin ue to monito r until inpati ent treatm ent can be identi fied. Psychi atric consul t pendin g. Patien t is bringi ng in her home medica tions that we do not have these in pharma [facility]. Other home medica tions have been ordere d. Last update d by Cisco French MD at 17:16 Sign Out Commen t: depres gladis, SI, awaiti ng placem ent Last update d by Shelli Pratt MD at 22:49 Sign Out Commen t: 48yo F, SI, medica lly cleare d, home meds in, pendin g [facility]. Last update d by Andie Mcintyre MD at 06:53 Sign Out Commen t: pendin g [facility] placem ent for SI/dep ressio n, stable during shift Last update d by Wanda Ricardo MD at 16:14 Sign Out Commen t: Medica lly cleare d [facility] patien t with suicid al ideati on. No active behavi oral issues last shift. Last update d by Prudencio Babcock MD at 21:56 Discha rge Plan Discha rge Detail s Chief Compla int: PsychE nichelle Primar y Care Provid er: Manisha Ellis ED Provid er: Andie Mcintyre Home Meds and New Rx's Prescr iption s: No Action naprox en 250 mg tablet 500 mg PO BID PRN Hold Instru ctions : Hold until PCP f/u clonaz epam 1 mg tablet 1 mg PO BID PRN melato jerry 10 mg tablet 10 mg PO HS PRN lorata dine 10 mg capsul e 10 mg PO DAILY buprop ion HCl [Wellb utrin SR] 150 mg tablet sustai ene-re lease 12 hr 150 mg PO BID cholec alcife rol (vitam in D3) 50 mcg (2,000 unit) capsul e 50 mcg PO DAILY metfor min 500 mg tablet extend ed releas e 24 hr 1,000 mg PO BID Trulic ity 1.5 mg/0.5 mL pen inject or 3 mg subcut QWEEK Hold Instru ctions : Until f/u with PCP or if blood glucos e levels begin to rise Rx Instru ctions : - on ays rosuva statin [Crest or] 5 MG tablet 10 mg PO QPM naratr iptan 2.5 mg tablet 2.5 mg PO BID PRN ribofl liliam (vitam in B2) [Vitam in B-2] 50 MG tablet 200 mg PO BID polyet hylene glycol 3350 17 gram/d ose Powder 17 g PO DAILY PRN cyanoc obalam in (vitam in B-12) 1,000 mcg tablet 1,000 mcg PO DAILY Patien t Commen ts: TAKE ONE TABLET BY MOUTH EVERY DAY duloxe sonny 30 mg capsul e,karina yed releas e(DR/E C) 30 mg PO DAILY Patien t Commen ts: Take 1 capsul e by mouth once a day to replac e paxil which she will wean off icosap ent ethyl [Herlinda desir] 1 gram capsul e 2 g PO BID Patien t Commen ts: TAKE TWO CAPSUL ES BY MOUTH TWICE A DAY Farxig a 5 mg tablet 5 mg PO DAILY Patien t Commen ts: Take 1 tablet by mouth once a day hydrom orphon e 2 mg tablet 4 mg PO BID Patien t Commen ts: TAKE TWO TABLET S BY MOUTH TWICE A DAY Entres to 97-103 mg tablet 1 tab PO BID Hold Instru ctions : Hold until PCP f/u or if SBP is consis tently > 120 mmHg Patien t Commen ts: TAKE ONE TABLET BY MOUTH TWICE A DAY pregab deonna 100 mg capsul e 100 mg PO TID Patien t Commen ts: Take 1 capsul e by mouth three times a day metopr olol tartra te 25 mg Tablet 12.5 mg PO BID Qty: 0 0RF magnes ium oxide 400 MG tablet 400 mg PO HS Qty: 0 0RF levoth yroxin e [Synth roid] 25 MCG tablet 50 mcg PO HS omepra zole 20 mg Capsul e,Karina yed Releas e(Dr/E c) 20 mg PO DAILY prochl orpera zine maleat e 10 mg Tablet 10 mg PO DAILY PRN (Reaso n: Headac he) albute rol sulfat e [Alvaro janet HFA] 90 mcg/ac tuatio n Hfa Aeroso l Inhale r 2 puff INHALA TION QID PRN naloxo ne [Narca n] 4 mg/act uation Camak, Non-Ae rosol 1 spray INTRAN NEELA ONCE PRN Patien t Comm ts: Never used. valacy clovir 1 gram tablet 500 mg PO QHS aspiri n 81 mg tablet ,delay ed releas e (DR/EC ) 81 mg PO DAILY Qty: 14 0RF Rx Instru ctions : Take 1 daily with a meal for 30 days estrad iol 1 mg tablet See Rx Instru ctions .ROUTE .COMPL EX Patien t Comm ts: TAKE 1 TABLET BY MOUTH EVERY MORNIN G THEN 2 TABLET S EVERY EVENIN G Rx Instru ctions : --> 1mg qAM and 1.5m,g qPM hydroc ortiso ne 2.5 % cream 1 applic topica l QID Qty: 30 6RF acetam inophe n 500 mg capsul e 1,000 mg PO Q8H PRN PRNQty : 30 0RF lamotr igine [Lamic karla] 100 mg tablet 150 mg PO HS Patien t Comm ts: TAKE 1 TABLET BY MOUTH EVERY DAY buprop ion HCl 150 mg tablet extend ed releas e 24 hr 150 mg PO BID Patien t Comm ts: TAKE ONE TABLET BY MOUTH TWICE A DAY WITH MEALS cc: MANISHA ELLIS MD ------ ------ ------ ------ ------ ------ ------ ------ ------ ------ ------ --- Dictat ed by: Andie Mcintyre M.D. Dictat ed: Time: 2311 Date: 628 Date: Date: Transc ribed Date: Transc ribed Time: 2311 By: LA This is privil eged, confid ential inform ation, intend ed only for the provid er named. Any use or distri bution by any person other than this provid er is strict ly prohib ited. If you receiv e this report in error, please notify us immedi ately at [phone] and return the origin al report to us at the addres s above. Thank you. [facility] [address] [place], [address] 01/09/2024 17:04:49 01/09/20 24 01/09/2024 ED progr ess note ED Progre ss Note SURENDRA Olmedo NAME: Naya Andrea UNIT #: [id number] ADMITT ING PROVID ER: Wanda Ricardo M.D. ACCOUN T #: [id number] PRIMAR Y CARE PROVID ER: MANISHA ELLIS MD DATE OF ADMIT: : 1974 Date of servic e: Time of Servic e: 07:22 Medica l Decisi on Making Surendra t signed out to me with no report ed incide nts overni ght, still seekin g [facility] plac[facility] ent for depres gladis and suicid al ideati ons. Patien t curren tly withou t acute compla ints, will contin ue to monito r until safe dispos ition found Qualit y:SDOH Health Relate d Social Needs: No Data to Displa y Sign Out Sign Out Data: Sign Out Commen t: Care signed out to Dr. Jeremiah Metz no, please see my docume ntatio n regard ing initia l ED presen tation and course . Plan at signou t is to contin ue to monito r until inpati ent treatm ent can be identi fied. Psychi atric consul t pendkristofer g. Patien t is bringi ng in her home medica tions that we do not have these in ph[facility]. Other home medica tions have been ordere d. Last update d by Cisco French MD at 17:16 Sign Out Commen t: depres gladis, SI, awaiti ng placem ent Last update d by Shelli Pratt MD at 22:49 Sign Out Commen t: 48yo F, SI, medica lly cleare d, home meds in, pendin g [facility]. Last update d by Andie Mcintyre MD at 06:53 Sign Out Commen t: pendin g [facility] plac[facility] ent for SI/dep ressio n, stable during shift Last update d by Wanda Ricardo MD at 16:14 Sign Out Commen t: Medica lly cleare d [facility] patien t with suicid al ideati on. No active behavi oral issues last shift. Last update d by Prudencio Babcock MD at 21:56 Discha rge Plan Discha rge Detail s Chief Compla int: PsychE nichelle Primar y Care Provid er: Manisha Ellis ED Provid er: Wanda Ricardo Home Meds and New Rx's Prescr iption s: No Action naprox en 250 mg tablet 500 mg PO BID PRN Hold Instru ctions : Hold until PCP f/u clonaz epam 1 mg tablet 1 mg PO BID PRN melato jerry 10 mg tablet 10 mg PO HS PRN lorata dine 10 mg capsul e 10 mg PO DAILY buprop ion HCl [Wellb utrin SR] 150 mg tablet sustai ene-re lease 12 hr 150 mg PO BID cholec alcife rol (vitam in D3) 50 mcg (2,000 unit) capsul e 50 mcg PO DAILY metfor min 500 mg tablet extend ed releas e 24 hr 1,000 mg PO BID Trulic ity 1.5 mg/0.5 mL pen inject or 3 mg subcut QWEEK Hold Instru ctions : Until f/u with PCP or if blood glucos e levels begin to rise Rx Instru ctions : - on Thursd ays rosuva statin [Crest or] 5 MG tablet 10 mg PO QPM naratr iptan 2.5 mg tablet 2.5 mg PO BID PRN ribofl liliam (vitam in B2) [Vitam in B-2] 50 MG tablet 200 mg PO BID polyet hylene glycol 3350 17 gram/d ose Powder 17 g PO DAILY PRN cyanoc obalam in (vitam in B-12) 1,000 mcg tablet 1,000 mcg PO DAILY Patien t Commen ts: TAKE ONE TABLET BY MOUTH EVERY DAY duloxe sonny 30 mg capsul e,karina yed releas e(/E C) 30 mg PO DAILY Patien t Commen ts: Take 1 capsul e by mouth once a day to replac e paxil which she will wean off icosap ent ethyl [Vasce pa] 1 gram capsul e 2 g PO BID Patien t Commen ts: TAKE TWO CAPSUL ES BY MOUTH TWICE A DAY Farxig a 5 mg tablet 5 mg PO DAILY Patien t Commen ts: Take 1 tablet by mouth once a day hydrom orphon e 2 mg tablet 4 mg PO BID Patien t Commen ts: TAKE TWO TABLET S BY MOUTH TWICE A DAY Entres to 97-103 mg tablet 1 tab PO BID Hold Instru ctions : Hold until PCP f/u or if SBP is consis tently > 120 mmHg Patien t Commen ts: TAKE ONE TABLET BY MOUTH TWICE A DAY pregab deonna 100 mg capsul e 100 mg PO TID Patien t Commen ts: Take 1 capsul e by mouth three times a day metopr olol tartra te 25 mg Tablet 12.5 mg PO BID Qty: 0 0RF magnes ium oxide 400 MG tablet 400 mg PO HS Qty: 0 0RF levoth yroxin e [Synth roid] 25 MCG tablet 50 mcg PO HS omepra zole 20 mg Capsul e,Karina yed Releas e(Dr/E c) 20 mg PO DAILY prochl orpera zine maleat e 10 mg Tablet 10 mg PO DAILY PRN (Reaso n: Headac he) albute rol sulfat e [Alvaro janet HFA] 90 mcg/ac tuatio n Hfa Aeroso l Inhale r 2 puff INHALA TION QID PRN naloxo ne [Narca n] 4 mg/act uation Camak, Non-Ae rosol 1 spray INTRAN NEELA ONCE PRN Patien t Comm ts: Never used. valacy clovir 1 gram tablet 500 mg PO QHS aspiri n 81 mg tablet ,delay ed releas e (DR/EC ) 81 mg PO DAILY Qty: 14 0RF Rx Instru ctions : Take 1 daily with a meal for 30 days estrad iol 1 mg tablet See Rx Instru ctions .ROUTE .COMPL EX Patien t Comm ts: TAKE 1 TABLET BY MOUTH EVERY MORNIN G THEN 2 TABLET S EVERY EVENIN G Rx Instru ctions : --> 1mg qAM and 1.5m,g qPM hydroc ortiso ne 2.5 % cream 1 applic topica l QID Qty: 30 6RF acetam inophe n 500 mg capsul e 1,000 mg PO Q8H PRN PRNQty : 30 0RF lamotr igine [Lamic karla] 100 mg tablet 150 mg PO HS Patien t Comm ts: TAKE 1 TABLET BY MOUTH EVERY DAY buprop ion HCl 150 mg tablet extend ed releas e 24 hr 150 mg PO BID Patien t ts: TAKE ONE TABLET BY MOUTH TWICE A DAY WITH MEALS cc: MANISHA ELLIS MD ------ ------ ------ ------ ------ ------ ------ ------ ------ ------ ------ --- Dictat ed by: BRADEN GROVER, WANDA Suarez Dictat ed: Time: 0712 25 Date: 721 Date: Date: Transc ribed Date: Transc ribed Time: 721 By: FELICITAS This is privil eged, confid ential inform ation, intend ed only for the provid er named. Any use or distri bution by any person other than this provid er is strict ly prohib ited. If you receiv e this report in error, please notify us immleela bernardo at [phone] and return the origin al report to us at the addres s above. Thank you. [facility] [address] [place], [address] 01/09/2024 17:04:49 01/09/20 24 01/09/2024 komal mack h progr ess note MENTAL HEALTH PROGRE SS NOTE SURENDRA Olmedo NAME: Naya Andrea UNIT #: [id number] ADMITT ING PROVID ER: Tai Azalea west T #: [id number] PRIMAR Y CARE PROVID ER: MANISHA ELLIS MD DATE OF ADMIT: : 1974 Date of servic e: Time of Servic e: 10:00 PHQ-9 Over the last 2 weeks, how often have you been bother ed by any of the follow ing proble ms? 1. Little intere st or pleasu re in doing things : nearly every day 2. Feelin g down, depres sed, or hopele ss: nearly every day 3. Troubl e fallin g or stayin g asleep , or sleepi ng too much: nearly every day 4. Feelin g tired or having little energy : nearly every day 5. Poor appeti te or overea ting: nearly every day 6. Feelin g bad about yourse lf - or that you are a failur e or have let yourse lf and your family down: nearly every day 7. Troubl e concen tratin g on things , such as readin g the newspa per or watchi ng televi gladis: nearly every day 8. Moving or speaki ng so slowly that other people could have notice d? - Or the opposi te - being so fidget y or restle ss that you have been moving around a lot more than usual: severa l days 9. Though ts that you would be better off or of hurtin g yourse lf in some way: nearly every day Total score: 25 Source : Facundo ped by Drs. Russell pulido, Jennifer Seay ms, Jaydon power and mikki staton, with an educat ional amadeo from [employer]. Suicid e Severi ty Rate CSSRS Have you wished you were or wished you could go to sleep and not wake up?: Yes Have you actual ly had any though ts of killin g yourse lf?: Yes CSSRS2 Have you been thinki ng about how you might do this?: Yes Have you had these though ts and had some intent ion of acting on them?: Yes Have you starte d to work out or worked out the detail s of how to kill yourse lf? Do you intend to carry out this plan?: Yes CSSRS3 Have you ever done anythi ng, starte d to do anythi ng or prepar ed to do anythi ng to end your life?: Yes CSSRS4 Was this within the past three months ?: Yes Screen ing Score Total Score: 8 Screen ing: [facility] Emerge ncy Note Releas e [facility] releas e signed :: Yes Reason for Visit In the last 2 weeks has the pt ady pond for ES prior to today? : Yes, ady pond at [facility] ED Non Suicid al Self Injury Curren t: No Safety Risk/H arm to Self or Others Curren t Ideati on to Harm Self or Others : Yes to self. Intent : yes, has intent . Plan: yes,cisneros s a plan. Histor y of suicid e attemp t: yes,de story of suicid e attemp t report ed. Detail s of previo us suicid e attemp t: attemp t 12/30/23 Assses sment/ Mental Status Appear ance: Dishev eled Attitu de: Izaiah ative Behavi or: Unrema rkable Speech : Normal and Soft Affect : Normal Mood: Depres sed Though t proces s: Unrema rkable Halluc inatio ns: No eviden ce Delusi ons: No eviden ce Attent ion: Unrema rkable Percep tion: Not impair ed Harbeson ation: Fully orient ated Memory : Intact Insigh t: Good Judgem ent: Good Neurov egetat viviana Sympto ms Sleep: Decrea se (broke n sleep patter ns, diffic ulty with onset) Appeti tie: Decrea se Intere sts: Decrea se Energy : Decrea se Libido : Not applic able Substa nce Use: Have you used substa nces in the last 7 days?: No Impres gladis Client is a 48 year old caucsi on female presen ting via [facility] at [facility] for reasse ssment while awaiti ng [facility] placem ent. This short story writer consul salty with client s [facility] nurse Hesham, stated client had a uneve ntful night and no behavi oral concer ns. Client presen ts orient ated across all sphere s, denies HI, report ed ongoin g passiv e SI, though ts of not wantin g to be here. Client report ed on Likert scale 0/10 SI being a 5-6, client report ed diffic ulty to contro l and linger ing. Client amenda ble for awaiti ng contin ued [facility] placem ent. Client report ed broken sleep patter ns and diffic ulty onset, stated fallin g asleep around 11:00p m and waking up throug hout the night. Client report eating breakf ast this mornin g and feelin g okay when asked to descri be mood. This short story writer checke d in with BR, client under review , [facility] client under review , WC declin ed client and [facility] [place] [place] is at [facility] yolanda pulido will keep client on this list. This short story writer will send update d reasse ssment to all [facility].s Plan/D isposi tion Recomm ended Dispos ition: Hospit alizat ion (refer [facility] submit salty for [facility] placem ent ) facili ties contac salty. Plan: Client will remain at [facility] ED in Zone B until placem ent is found for her liz t persis tent SI. Client will need daily reasse ssment s until placem ent is found. Facili ties contac salty if Applic able [facility] (Under review ) Not accept ed, (under review ) Other [facility] (will contin ue to have client on list, [facility] [place] at [facility] ) Not accept ed, No bed availa ble [facility] Not accept ed, (under review ) Other, [facility] Not accept ed, (decli ene) Other Report s/comm unicat ion Outcom e discus sed with: ED/Per robert (KANNAN Dahl) cc: ------ ------ ------ ------ ------ ------ ------ ------ ------ ------ ------ --- Dictat ed by: Tai westWillyefrain smiley Dictat ed: Time: 1017 Date: 1026 Date: Date: Transc ribed Date: Transc ribed Time: 1017 By: CONCHITA This is privil eged, confid ential inform ation, intend ed only for the provid er named. Any use or distri bution by any person other than this provid er is strict ly prohib ited. If you receiv e this report in error, please notify us immedi ately at [phone] and return the origin al report to us at the addres s above. Thank you. [facility] [address] [place], [address] 01/09/2024 17:04:49 01/09/20 24 01/09/2024 care manag ement safet y plan Care Manage ment Safety Plan SURENDRA Olmedo NAME: Naya Andrea UNIT #: [id number] ADMITT ING PROVID ER: Melany Tobias ACCOUN T #: [id number] PRIMAR Y CARE PROVID ER: MANISHA ELLIS MD DATE OF ADMIT: : 1974 Date of servic e: Time of Servic e: 14:32 Care Manage ment Safety Plan Status Status : [facility] Reason for Wait Reason for Wait: Inpati ent Admiss ion Safety Plan Safety Plan: [facility] FOR INPATI ENT PSYCHI ATRIC STABIL IZATIO N.??? Surendra olmedo is approp riana in all intera ctions since arrivi ng at [facility]; Pt has demons trated approp riate coping and commun icatio n skills , has articu lated his or her needs and concer ns and is fully engage d during staff intera ctions . Safety plan has been establ ished with surendra olmedo, and care team, to adhere to surendra olmedo goals, identi fy restri ctions based on behavi oral status , addres s nutrit ion, and determ ine allowe d person al belong ings, tools for hygien e and person al care. Determ ine level of activi ty includ ing ambula tion, level of superv ision, visito rs, and determ ine privil eges based on behavi ors and level of engage ment by pt. SAFETY PLAN: 1. Will remain on suicid e precau tions, in paper clothe s 2. 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 3. May have paper cups, plates , finger foods as well as a cardbo tesfaye spoon with which to eat meals. 4. Follow [facility] Manage ment of the Admitt ed Behavi oral Health Patien t policy . 5. Shower availa ble in Zone B withou t restri ction. 6. Person al belong ings-s oft items permit salty at RN discre tion. 7. Visito rs-fam maria esther may visit at [facility]'s discre tion 8. Activi ties: soft cart items approv ed per RN discre tion. 9.??? [place] om availa ble in Zone B withou t restri ction. 10. Phone: limite d to [facility] nenita ss phone at RN discre tion. Due to [facility] status , if surendra olmedo wishes to leave [facility], staff will contac t [facility] Crisis Screen er ([phone]) and On-Karin l Care Manage r ([phone]) as soon as possib le. In the event of elopem ent, notify [employer] [employer] ([phone]). Surendra olmedo is curren tly volunt arily at [facility] a bed become s availa ble. [facility] Frontl ine [place] will contin ue seekin g [facility] ent. Please contac t the Check Examiner Care Manage r ([phone]) and [facility] [place] ([phone]) for any needed change s in the Safety Plan. Safety plan has been provid ed to [facility] ental care team. cc: ------ ------ ------ ------ ------ ------ ------ ------ ------ ------ ------ --- Dictat ed by: Melany Tobias Dictat ed: Time: 1432 Date: 1432 Date: Date: Transc ribed Date: Transc ribed Time: 1431 By: JIMBO This is privil eged, confid ential inform ation, intend ed only for the provid er named. Any use or distri bution by any person other than this provid er is strict ly prohib ited. If you receiv e this report in error, please notify us immjadei tova at and return the origin al report to us at the addres s above. Thank you. [facility] [address] [place], [address] 01/09/2024 17:04:50 01/09/20 24 01/08/2024 care manag ement safet y plan Care Manage ment Safety Plan SURENDRA Olmedo NAME: Naya Andrea UNIT #: [id number] ADMITT ING PROVID ER: Melany Tobias ACCOUN T #: [id number] 21 PRIMAR Y CARE PROVID ER: MANISHA ELLIS MD DATE OF ADMIT: : 1974 Date of servic e: Time of Servic e: 12:42 Care Manage ment Safety Plan Status Status : [facility] Reason for Wait Reason for Wait: Inpati ent Admiss ion Safety Plan Safety Plan: [facility]PATI ENT PSYCHI ATRIC STABIL IZATIO N.??? Surendra olmedo is approp kylee in all intera ctions since arrivchai bruce at [facility]; Pt has demons trated approp riate coping and commun icatio n skills , has articu lated his or her needs and concer ns and is fully engage d during staff intera ctions . Safety plan has been establ ished with surendra olmedo, and care team, to adhere to patien t goals, identi fy restri ctions based on behavi oral status , addres s nutrit ion, and determ ine allowe d person al belong ings, tools for hygien e and person al care. Determ ine level of activi ty includ ing ambula tion, level of superv ision, visito rs, and determ ine privil eges based on behavi ors and level of engage ment by pt. SAFETY PLAN: 1. Will remain on suicid e precau tions, in paper clothe s 2. 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 3. May have paper cups, plates , finger foods as well as a cardbo tesfaye spoon with which to eat meals. 4. Follow [facility] Manage ment of the Admitt ed Behavi oral Health Patien t policy . 5. Shower availa ble in Zone B withou t restri ction. 6. Person al belong ings-s oft items permit salty at RN discre tion. 7. Visito rs-non e at this time. 8. Activi ties: soft cart items approv ed per RN discre tion. 9.??? Bathro om availa ble in Zone B withou t restri ction. 10. Phone: limite d to [facility] nenita ss phone at RN discre tion. Due to [facility] status , if surendra olmedo wishes to leave [facility], staff will contac t [facility] Crisis Screen er ([phone]) and On-Karin l Care Manage r ([phone]) as soon as possib le. In the event of elopem ent, notify [place] [employer] ([phone]). Surendra olmedo is curren tly volunt arily at [facility] and [facility] a bed become s availa ble. [facility] Frontl ine [address] [place] [employer] will contin ue seekin g placem ent. Please contac t the Check Examiner Care Manage r ([phone]) and [facility] [place] ([phone]) for any needed change s in the Safety Plan. Safety plan has been provid ed to [facility] ental care team. cc: ------ ------ ------ ------ ------ ------ ------ ------ ------ ------ ------ --- Dictat ed by: Michaelle albertoMelany tono Dictat ed: Time: 1242 Date: 1434 Date: Date: Transc ribed Date: Transc ribed Time: 124 By: JIMBO This is privil eged, confid ential inform ation, intend ed only for the provid er named. Any use or distri bution by any person other than this provid er is strict ly prohib ited. If you receiv e this report in error, please notify us immedi russly at [phone] and return the origin al report to us at the addres s above. Thank you. [facility] [address], [place], [address] 01/09/2024 17:04:48 01/10/20 24 01/09/2024 ED progr ess note ED Progre ss Note PATIEN T NAME: Naya Andrea UNIT #: [id number] ADMITT ING PROVID ER: Andie Mcintyre M.D. ACCOUN T #: [id number] PRIMAR Y CARE PROVID ER: MANISHA ELILS MD DATE OF ADMIT: : 1974 Date of servic e: Time of Servic e: 23:27 Medica l Roman on Making This patien t was signed out to me. Please see previo us notes for H P and initia l eval. In brief, 48you F medica lly cleare d pendin g [facility] psych placem ent for SI. Overni ght no behavi oral events , appear ed to be sleepi ng comfor tably. Did not wake patien t for assess ment. Signed out to oncomchai rbuce physic ketan, plan remain s as above. Qualit y:SDOH Health Relate d Social Needs: No Data to Displa y Sign Out Sign Out Data: Sign Out Commen t: Care signed out to Dr. eJremiah Metz no, please see my docume ntatio n regard ing initia l ED presen tation and course . Plan at signou t is to contin ue to monito r until inpati ent treatm ent can be identi fied. Psychi atric consul t pendin g. Patien t is bringi ng in her home medica tions that we do not have these in pharma cy. Other home medica tions have been ordere d. Last update d by Cisco French MD at 17:16 Sign Out Commen t: depres gladis, SI, awaiti ng placem ent Last update d by Shelli Pratt MD at 22:49 Sign Out Commen t: 48yo F, SI, medica lly cleare d, home meds in, pendin g [facility] placem ent. Last update d by Andie Mcintyre MD at 06:53 Sign Out Commen t: pendin g [facility] placem ent for SI/dep ressio n, stable during shift Last update d by Wanda Ricardo MD at 16:14 Sign Out Commen t: Medica lly cleare d [facility] patien t with suicid al ideati on. No active behavi oral issues last shift. Last update d by Prudencio Babcock MD at 21:56 Sign Out Commen t: [facility] for SI/dep ressio n, pendin g placem ent, no issues during shift Last update d by Wanda Ricardo MD at 09:34 Sign Out Commen t: [facility] for SI/dep ressio n, pendin g placem ent, no issues during shift Last update d by Frankie Pelaez i, MD at 22:31 Sign Out Commen t: [facility] SI, pendin g placem ent, no behavi oral issues overni ght Last update d by Andie Mcintyre MD at 02/18/ 24 04:51 Discha rge Plan Discha rge Detail s Chief Compla int: PsychE nichelle Primar y Care Provid er: Manisha Ellis ED Provid er: Andie Mcintyre vanda Home Meds and New Rx's Prescr iption s: No Action naprox en 250 mg tablet 500 mg PO BID PRN Hold Instru ctions : Hold until PCP f/u clonaz epam 1 mg tablet 1 mg PO BID PRN melato jerry 10 mg tablet 10 mg PO HS PRN lorata dine 10 mg capsul e 10 mg PO DAILY buprop ion HCl [Wellb utrin SR] 150 mg tablet sustai ene-re lease 12 hr 150 mg PO BID cholec alcife rol (vitam in D3) 50 mcg (2,000 unit) capsul e 50 mcg PO DAILY metfor min 500 mg tablet extend ed releas e 24 hr 1,000 mg PO BID Trulic ity 1.5 mg/0.5 mL pen inject or 3 mg subcut QWEEK Hold Instru ctions : Until f/u with PCP or if blood glucos e levels begin to rise Rx Instru ctions : - on Thursd ays rosuva statin [Crest or] 5 MG tablet 10 mg PO QPM naratr iptan 2.5 mg tablet 2.5 mg PO BID PRN ribofl liliam (vitam in B2) [Vitam in B-2] 50 MG tablet 200 mg PO BID polyet hylene glycol 3350 17 gram/d ose Powder 17 g PO DAILY PRN cyanoc obalam in (vitam in B-12) 1,000 mcg tablet 1,000 mcg PO DAILY Patien t Commen ts: TAKE ONE TABLET BY MOUTH EVERY DAY duloxe sonny 30 mg capsul e,karina yed releas e(DR/E C) 30 mg PO DAILY Patien t Commen ts: Take 1 capsul e by mouth once a day to replac e paxil which she will wean off icosap ent ethyl [Vasce pa] 1 gram capsul e 2 g PO BID Patien t Commen ts: TAKE TWO CAPSUL ES BY MOUTH TWICE A DAY Farxig a 5 mg tablet 5 mg PO DAILY Patien t Commen ts: Take 1 tablet by mouth once a day hydrom orphon e 2 mg tablet 4 mg PO BID Patien t Commen ts: TAKE TWO TABLET S BY MOUTH TWICE A DAY Entres to 97-103 mg tablet 1 tab PO BID Hold Instru ctions : Hold until PCP f/u or if SBP is consis tently > 120 mmHg Patien t Commen ts: TAKE ONE TABLET BY MOUTH TWICE A DAY pregab deonna 100 mg capsul e 100 mg PO TID Patien t Commen ts: Take 1 capsul e by mouth three times a day metopr olol tartra te 25 mg Tablet 12.5 mg PO BID Qty: 0 0RF magnes ium oxide 400 MG tablet 400 mg PO HS Qty: 0 0RF levoth yroxin e [Synth roid] 25 MCG tablet 50 mcg PO HS omepra zole 20 mg Capsul e,Karina yed Releas e(Dr/E c) 20 mg PO DAILY prochl orpera zine maleat e 10 mg Tablet 10 mg PO DAILY PRN (Reaso n: Headac he) albute rol sulfat e [Alvaro janet HFA] 90 mcg/ac tuatio n Hfa Aeroso l Inhale r 2 puff INHALA TION QID PRN naloxo ne [Narca n] 4 mg/act uation Camak, Non-Ae rosol 1 spray INTRAN NEELA ONCE PRN Patien t Commen ts: Never used. valacy clovir 1 gram tablet 500 mg PO QHS aspiri n 81 mg tablet ,delay ed releas e (DR/EC ) 81 mg PO DAILY Qty: 14 0RF Rx Instru ctions : Take 1 daily with a meal for 30 days estrad iol 1 mg tablet See Rx Instru ctions .ROUTE .COMPL EX Patien t Commen ts: TAKE 1 TABLET BY MOUTH EVERY MORNIN G THEN 2 TABLET S EVERY EVENIN G Rx Instru ctions : --> 1mg qAM and 1.5m,g qPM hydroc ortiso ne 2.5 % cream 1 applic topica l QID Qty: 30 6RF acetam inophe n 500 mg capsul e 1,000 mg PO Q8H PRN PRNQty : 30 0RF lamotr igine [Lamic karla] 100 mg tablet 150 mg PO HS Patien t Commen ts: TAKE 1 TABLET BY MOUTH EVERY DAY buprop ion HCl 150 mg tablet extend ed releas e 24 hr 150 mg PO BID Patien t Commen ts: TAKE ONE TABLET BY MOUTH TWICE A DAY WITH MEALS cc: MANISHA ELLIS MD ------ ------ ------ ------ ------ ------ ------ ------ ------ ------ ------ --- Dictat ed by: Andie Mcintyre M.D. Dictat ed: Time: 2326 Date: 0650 Date: Date: Transc ribed Date: Transc ribed Time: 2326 By: LA This is privil eged, confid ential inform ation, intend ed only for the provid er named. Any use or distri bution by any person other than this provid er is strict ly prohib ited. If you receiv e this report in error, please notify us immedi ately at and return the origin al report to us at the addres s above. Thank you. [facility] [address], [place], [address] 01/10/2024 10:35:39 01/10/20 24 01/10/2024 ED progr ess note ED Progre ss Note SURENDRA Olmedo NAME: Naya Andrea UNIT #: [id number] ADMITT ING PROVID ER: Wanda Ricardo M.D. ACCOUN T #: [id number] PRIMAR Y CARE PROVID ER: MANISHA ELLIS MD DATE OF ADMIT: : 1974 Date of servic e: Time of Servic e: 07:27 Medica l Decisi on Making Patistephanie t still awaiti placem ent for SI and depres gladis, no events overni ght per signou t, no acute compla ints, will contin ue to monito r until safe dispos ition found Qualit y:SDOH Health Relate d Social Needs: No Data to Displa y Sign Out Sign Out Data: Sign Out Commen t: Care signed out to Dr. Jeremiah Metz no, please see my docume ntatio n regard ing initia l ED presen tation and course . Plan at signou t is to contin ue to monito r until inpati ent treatm ent can be identi fied. Psychi atric consul t pendin g. Patien t is bringi ng in her home medica tions that we do not have these in pharma cy. Other home medica tions have been ordere d. Last update d by Cisco French MD at 17:16 Sign Out Commen t: depres gladis, SI, awaiti ng placem ent Last update d by Shelli Pratt MD at 22:49 Sign Out Commen t: 48yo F, SI, medica lly cleare d, home meds in, pendin g [facility] placem ent. Last update d by Andie Mcintyre MD at 06:53 Sign Out Commen t: pendin g [facility] placem ent for SI/dep ressio n, stable during shift Last update d by Wanda Ricardo MD at 16:14 Sign Out Commen t: Medica lly cleare d [facility] patien t with suicid al ideati on. No active behavi oral issues last shift. Last update d by Prudencio Babcock MD at 21:56 Sign Out Commen t: [facility] for SI/dep ressio n, pendin g placem ent, no issues during shift Last update d by Wanda Ricardo MD at 09:34 Sign Out Commen t: [facility] for SI/dep ressio n, pendin g placem ent, no issues during shift Last update d by Frankie Pelaez i, MD at 22:31 Sign Out Commen t: [facility] SI, pendin g placem ent, no behavi oral issues overni ght Last update d by Andie Mcintyre MD at 04:51 Discha rge Plan Discha rge Detail s Chief Compla int: PsychE nichelle Primar y Care Provid er: Manisha Ellis ED Provid er: Wanda Ricardo Home Meds and New Rx's Prescr iption s: No Action naprox en 250 mg tablet 500 mg PO BID PRN Hold Instru ctions : Hold until PCP f/u clonaz epam 1 mg tablet 1 mg PO BID PRN melato jerry 10 mg tablet 10 mg PO HS PRN lorata dine 10 mg capsul e 10 mg PO DAILY buprop ion HCl [Wellb utrin SR] 150 mg tablet sustai ene-re lease 12 hr 150 mg PO BID cholec alcife rol (vitam in D3) 50 mcg (2,000 unit) capsul e 50 mcg PO DAILY metfor min 500 mg tablet extend ed releas e 24 hr 1,000 mg PO BID Trulic ity 1.5 mg/0.5 mL pen inject or 3 mg subcut QWEEK Hold Instru ctions : Until f/u with PCP or if blood glucos e levels begin to rise Rx Instru ctions : - on ays rosuva statin [Crest or] 5 MG tablet 10 mg PO QPM naratr iptan 2.5 mg tablet 2.5 mg PO BID PRN ribofl liliam (vitam in B2) [Vitam in B-2] 50 MG tablet 200 mg PO BID polyet hylene glycol 3350 17 gram/d ose Powder 17 g PO DAILY PRN cyanoc obalam in (vitam in B-12) 1,000 mcg tablet 1,000 mcg PO DAILY Patien t Commen ts: TAKE ONE TABLET BY MOUTH EVERY DAY duloxe sonny 30 mg capsul e,karina yed releas e(DR/E C) 30 mg PO DAILY Patien t Commen ts: Take 1 capsul e by mouth once a day to replac e paxil which she will wean off icosap ent ethyl [Vasce pa] 1 gram capsul e 2 g PO BID Patien t Commen ts: TAKE TWO CAPSUL ES BY MOUTH TWICE A DAY Farxig a 5 mg tablet 5 mg PO DAILY Patien t Commen ts: Take 1 tablet by mouth once a day hydrom orphon e 2 mg tablet 4 mg PO BID Patien t Commen ts: TAKE TWO TABLET S BY MOUTH TWICE A DAY Entres to 97-103 mg tablet 1 tab PO BID Hold Instru ctions : Hold until PCP f/u or if SBP is consis tently > 120 mmHg Patien t Comm ts: TAKE ONE TABLET BY MOUTH TWICE A DAY pregab deonna 100 mg capsul e 100 mg PO TID Pati t Comm ts: Take 1 capsul e by mouth three times a day metopr olol tartra te 25 mg Tablet 12.5 mg PO BID Qty: 0 0RF magnes ium oxide 400 MG tablet 400 mg PO HS Qty: 0 0RF levoth yroxin e [Synth roid] 25 MCG tablet 50 mcg PO HS omepra zole 20 mg Capsul e,Karina yed Releas e(Dr/E c) 20 mg PO DAILY prochl orpera zine maleat e 10 mg Tablet 10 mg PO DAILY PRN (Reaso n: Headac he) albute rol sulfat e [Alvaro janet HFA] 90 mcg/ac tuatio n Hfa Aeroso l Inhale r 2 puff INHALA TION QID PRN naloxo ne [Narca n] 4 mg/act uation Camak, Non-Ae rosol 1 spray INTRAN NEELA ONCE PRN Pati t ts: Never used. valacy clovir 1 gram tablet 500 mg PO QHS aspiri n 81 mg tablet ,delay ed releas e (DR/EC ) 81 mg PO DAILY Qty: 14 0RF Rx Instru ctions : Take 1 daily with a meal for 30 days estrad iol 1 mg tablet See Rx Instru ctions .ROUTE .COMPL EX Patien t Comm ts: TAKE 1 TABLET BY MOUTH EVERY MORNIN G THEN 2 TABLET S EVERY EVENIN G Rx Instru ctions : --> 1mg qAM and 1.5m,g qPM hydroc ortiso ne 2.5 % cream 1 applic topica l QID Qty: 30 6RF acetam inophe n 500 mg capsul e 1,000 mg PO Q8H PRN PRNQty : 30 0RF lamotr igine [Lamic karla] 100 mg tablet 150 mg PO HS Pati t ts: TAKE 1 TABLET BY MOUTH EVERY DAY buprop ion HCl 150 mg tablet extend ed releas e 24 hr 150 mg PO BID Patien t ts: TAKE ONE TABLET BY MOUTH TWICE A DAY WITH MEALS cc: CIRILO GROVER, MANISHA ------ ------ ------ ------ ------ ------ ------ ------ ------ ------ ------ --- Dictat ed by: BRADEN GROVER, WANDA Suarez Dictat ed: Time: 072 7 Date: 727 Date: Date: Transc ribed Date: Transc ribed Time: 726 By: FELICITAS This is privil eged, confid ential inform ation, intend ed only for the provid er named. Any use or distri bution by any person other than this provid er is strict ly prohib ited. If you receiv e this report in error, please notify us immedi otva at and return the origin al report to us at the addres s above. Thank you. [facility] [address], [place], [address] 01/10/2024 10:35:40 01/10/20 24 01/10/2024 care manag ement safet y plan Care Manage ment Safety Plan SURENDRA Olmedo NAME: Naya Andrea UNIT #: [id number] ADMITT ING PROVID ER: Melany Tobias ACCOUN T #: [id number] PRIMAR Y CARE PROVID ER: CIRILO GROVER, MANISHA DATE OF ADMIT: : 1974 Date of servic e: Time of Servic e: 15:42 Care Manage ment Safety Plan Status Status : [facility] Reason for Wait Reason for Wait: Inpati ent Admiss ion Safety Plan Safety Plan: [facility] FOR INPATI ENT PSYCHI ATRIC STABIL IZATIO N.??? Surendra olmedo is approp kylee in all intera ctions since arrivi janis at [facility]; Pt has demons trated approp riate coping and commun icatio n skills , has articu lated his or her needs and concer ns and is fully engage d during staff intera ctions . Safety plan has been establ ished with surendra olmedo, and care team, to adhere to patien t goals, identi fy restri ctions based on behavi oral status , addres s nutrit ion, and determ ine allowe d person al belong ings, tools for hygien e and person al care. Determ ine level of activi ty includ ing ambula tion, level of superv ision, visito rs, and determ ine privil eges based on behavi ors and level of engage ment by pt. SAFETY PLAN: 1. Will remain on suicid e precau tions, in paper clothe s 2. 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 3. May have paper cups, plates , finger foods as well as a cardbo tesfaye spoon with which to eat meals. 4. Follow [facility] Manage ment of the Admitt ed Behavi oral Health Patien t policy . 5. Shower availa ble in Zone B withou t restri ction. 6. Person al belong ings-s oft items permit salty at RN discre tion. 7. Visito rs-fam maria esther may visit at [facility]'s discre tion 8. Activi ties: soft cart items approv ed per RN discre tion. 9.??? Bathro om availa ble in Zone B withou t restri ction. 10. Phone: limite d to [facility] nenita ss phone at RN discre tion. Due to [facility] status , if surendra olmedo wishes to leave [facility], staff will contac t [facility] Crisis Screen er ([phone]) and On-Karin l Care Manage r ([phone]) as soon as possib le. In the event of elopem ent, notify [place] [employer] ([phone]). Surendra t is curren tly volunt arily at [facility] a bed become s availa ble. [facility] Frontl ine [place] will contin ue seekin g place ent. Please contac t the Check Examiner Care Manage r ([phone]) and [facility] [place] ([phone]) for any needed change s in the Safety Plan. Safety plan has been provid ed to [facility] ental care team. cc: ------ ------ ------ ------ ------ ------ ------ ------ ------ ------ ------ --- Dictat ed by: Melany Tobias Dictat ed: Time: 1542 Date: 154 Date: Date: Transc ribed Date: Transc ribed Time: 1541 By: JIMBO This is privil eged, confid ential inform ation, intend ed only for the provid er named. Any use or distri bution by any person other than this provid er is strict ly prohib ited. If you receiv e this report in error, please notify us immedi russly at [phone] and return the origin al report to us at the addres s above. Thank you. [facility] [address], [place], [address] 01/11/2024 07:54:44 01/10/20 24 01/10/2024 menta l healt h progr ess note MENTAL HEALTH PROGRE SS NOTE PATISTEPHANIE T NAME: Naya Andrea UNIT #: [id number] ADMITT ING PROVID ER: Azalea Ritchie ACCOUN T #: [id number] PRIMAR Y CARE PROVID ER: MANISHA ELLIS MD DATE OF ADMIT: : 1974 Date of servic e: Time of Servic e: 09:40 PHQ-9 Over the last 2 weeks, how often have you been bother ed by any of the follow ing proble ms? 1. Little intere st or pleasu re in doing things : nearly every day 2. Feelin g down, depres sed, or hopele ss: nearly every day 3. Troubl e fallin g or stayin g asleep , or sleepi ng too much: nearly every day 4. Feelin g tired or having little energy : nearly every day 5. Poor appeti te or overea ting: nearly every day 6. Feelin g bad about yourse lf - or that you are a failur e or have let yourse lf and your family down: nearly every day 7. Troubl e concen tratin g on things , such as readin g the newspa per or watchi ng televi gladis: nearly every day 8. Moving or speaki ng so slowly that other people could have notice d? - Or the opposi te - being so fidget y or restle ss that you have been moving around a lot more than usual: severa l days 9. Though ts that you would be better off or of hurtin g yourse lf in some way: nearly every day Total score: 25 Source : Facundo ped by Drs. Russell pulido, Jennifer Seay ms, Jaydon power and mikki staton, with an educat ional amadeo from [employer]. Suicid e Severi ty Rate CSSRS Have you wished you were or wished you could go to sleep and not wake up?: Yes Have you actual ly had any though ts of killin g yourse lf?: Yes CSSRS2 Have you been thinki ng about how you might do this?: Yes Have you had these though ts and had some intent ion of acting on them?: Yes Have you starte d to work out or worked out the detail s of how to kill yourse lf? Do you intend to carry out this plan?: Yes CSSRS3 Have you ever done anythi ng, starte d to do anythi ng or prepar ed to do anythi ng to end your life?: Yes CSSRS4 Was this within the past three months ?: Yes Screen ing Score Total Score: 8 Screen ing: [facility] ve [facility] Emerge ncy Note Releas e [facility] releas e signed :: Yes Reason for Visit reasse ssment for [facility] placem ent due to endors ing SI/ Depres gladis In the last 2 weeks has the pt presstephanie pond for ES prior to today? : Yes, ady pond at [facility] ED Non Suicid al Self Injury Curren t: No Safety Risk/H arm to Self or Others Currstephanie t Ideati on to Harm Self or Others : Yes to self. Intent : yes, has intent . Plan: yes,cisneros s a plan. Histor y of suicid e attemp t: yes,hi story of suicid e attemp t report ed. Detail s of previo us suicid e attemp t: attemp t 12/30/23 Assses sment/ Mental Status Appear ance: Unrema rkable Attitu de: Izaiah ative Behavi or: Unrema rkable Speech : Normal and Soft Affect : Cogrue nt with mood Mood: Sad and Depres sed Though t proces s: Goal direct ed Halluc inatio ns: No eviden ce Delusi ons: No eviden ce Attent ion: Unrema rkable Percep tion: Not impair ed Harbeson ation: Fully orient ated Memory : Intact Insigh t: Fair Judgem ent: Fair Neurov egetat viviana Sympto ms Sleep: Increa se Appeti tie: Decrea se Intere sts: Decrea se Energy : Decrea se Libido : Not applic able Substa nce Use: Have you used substa nces in the last 7 days?: No Impres gladis Client is a 48 year old Caucas ketan female presen roneng at [facility] for reasse ssment awaiti ng [facility]ona admiss ion at [facility] ED. Client orient ated across all sphere s, denies HI, report ed SI stated intent 5-6 on Likert scale, Speech soft, normal rate and rhythm , WNL gait and postur e. No eviden ce of though t dx. Client report ed no change s since last assess ment, indica salty ongoin g SI and elevat ed depres gladis i.e., hopele ssness , worthl essnes s, fatigu e, negati ve self image and low motiva tion. Client contin ues to be amenda ble to [facility] placem ent. Plan/D isposi tion Recomm ended Dispos ition: Hospit alizat ion facili ties contac salty. Plan: awaiti ng [facility] placem ent [facility]- Stated to check in tomorr ow WC declie nd BR declie nd due to medica l comple xity and contin uity in treatm ent based of [facility] stay [facility] no capaci ty Report s/comm unicat ion Outcom e discus sed with: ED/Per ariannanel (Dr. Ricardo, CHARLY Madrigal cc: ------ ------ ------ ------ ------ ------ ------ ------ ------ ------ ------ --- Dictat ed by: Tai westAzalea Dictat ed: Time: 1620 Date: 163 Date: Date: Transc ribed Date: Transc ribed Time: 1619 By: CONCHITA This is privil eged, confid ential inform ation, intend ed only for the provid er named. Any use or distri bution by any person other than this provid er is strict ly prohib ited. If you receiv e this report in error, please notify us immedi russly at [phone] and return the origin al report to us at the addres s above. Thank you. [facility] [address], [place], [address] 01/11/2024 07:54:44 01/11/20 24 01/11/2024 ED progr ess note ED Progre ss Note PATIEN T NAME: Naya Andrea UNIT #: [id number] ADMITT ING PROVID ER: Andie Mcintyre M.D. ACCOUN T #: [id number] PRIMAR Y CARE PROVID ER: MANISHA ELLIS MD DATE OF ADMIT: : 1974 Date of servic e: Time of Servic e: 23:30 Medica l Roman on Making This patien t was signed out to me. Please see previo us notes for H P and initia l eval. In brief, 48yo F presen ting with SI, medica lly cleare d, pendin g [facility] psych[facility] placem ent. Overni ght no acute behavi oral events . Did not wake patien t for evalua tion. Signed out to oncomchai bruce physic ketan, plan remain s as above. Qualit y:SDOH Health Relate d Social Needs: No Data to Displa y Sign Out Sign Out Data: Sign Out Commen t: Care signed out to Dr. Jeremiah Metz no, please see my docume ntatio n regard ing initia l ED presen tation and course . Plan at signou t is to contin ue to monito r until inpati ent treatm ent can be identi fied. Psychi atric consul t pendin g. Patien t is bringi ng in her home medica tions that we do not have these in [facility]. Other home medica tions have been ordere d. Last update d by Cisco French MD at 17:16 Sign Out Commen t: Still waitin g for placem ent for SI is [facility], no issues during shift Ordere d her home tripta n medica tion for [facility] Last update d by Frankie Pelaez i, MD at 21:36 Sign Out Commen t: 48F, SI, [facility], medica lly cleare d, pendin g placem ent. Last update d by Andie Mcintyre MD at 06:12 Sign Out Commen t: depres gladis, SI, awaiti ng placem ent Last update d by Shelli Pratt MD at 22:49 Sign Out Commen t: 48yo F, SI, medica lly cleare d, home meds in, pendin g [facility] placem ent. Last update d by Andie Mcintyre MD at 06:53 Sign Out Commen t: pendin g [facility] placem ent for SI/dep ressio n, stable during shift Last update d by Wanda Ricardo MD at 16:14 Sign Out Commen t: Medica lly cleare d [facility] patien t with suicid al ideati on. No active behavi oral issues last shift. Last update d by Prudencio Babcock MD at 21:56 Sign Out Commen t: [facility] for SI/dep ressio n, pendin g placem ent, no issues during shift Last update d by Wanda Ricardo MD at 09:34 Sign Out Commen t: [facility] for SI/dep ressio n, pendin g placem ent, no issues during shift Last update d by Frankie Pelaez i, MD at 22:31 Sign Out Commen t: [facility] SI, pendin g placem ent, no behavi oral issues overni ght Last update d by Andie Mcintyre MD at 04:51 Sign Out Commen t: Still waitin g for placem ent for SI is [facility], no issues during shift Last update d by Wanda Ricardo MD at 15:42 Discha rge Plan Discha rge Detail s Chief Compla int: PsychE nichelle Primar y Care Provid er: Manisha Ellis ED Provid er: Andie Mcintyre Home Meds and New Rx's Prescr iption s: No Action naprox en 250 mg tablet 500 mg PO BID PRN Hold Instru ctions : Hold until PCP f/u clonaz epam 1 mg tablet 1 mg PO BID PRN melato jerry 10 mg tablet 10 mg PO HS PRN lorata dine 10 mg capsul e 10 mg PO DAILY buprop ion HCl [Wellb utrin SR] 150 mg tablet sustai ene-re lease 12 hr 150 mg PO BID cholec alcife rol (vitam in D3) 50 mcg (2,000 unit) capsul e 50 mcg PO DAILY metfor min 500 mg tablet extend ed releas e 24 hr 1,000 mg PO BID Trulic ity 1.5 mg/0.5 mL pen inject or 3 mg subcut QWEEK Hold Instru ctions : Until f/u with PCP or if blood glucos e levels begin to rise Rx Instru ctions : - on d ays rosuva statin [Crest or] 5 MG tablet 10 mg PO QPM naratr iptan 2.5 mg tablet 2.5 mg PO BID PRN ribofl liliam (vitam in B2) [Vitam in B-2] 50 MG tablet 200 mg PO BID polyet hylene glycol 3350 17 gram/d ose Powder 17 g PO DAILY PRN cyanoc obalam in (vitam in B-12) 1,000 mcg tablet 1,000 mcg PO DAILY Patien t Commen ts: TAKE ONE TABLET BY MOUTH EVERY DAY duloxe sonny 30 mg capsul e,karina yoko releas e(/E C) 30 mg PO DAILY Patien t Comm ts: Take 1 capsul e by mouth once a day to replac e paxil which she will wean off icosap ent ethyl [Vasce pa] 1 gram capsul e 2 g PO BID Pati t Comm ts: TAKE TWO CAPSUL ES BY MOUTH TWICE A DAY Farxig a 5 mg tablet 5 mg PO DAILY Patien t Comm ts: Take 1 tablet by mouth once a day hydrom orphon e 2 mg tablet 4 mg PO BID Patien t Comm ts: TAKE TWO TABLET S BY MOUTH TWICE A DAY Entres to 97-103 mg tablet 1 tab PO BID Hold Instru ctions : Hold until PCP f/u or if SBP is consis tently > 120 mmHg Patien t Comm ts: TAKE ONE TABLET BY MOUTH TWICE A DAY pregab deonna 100 mg capsul e 100 mg PO TID Patien t ts: Take 1 capsul e by mouth three times a day metopr olol tartra te 25 mg Tablet 12.5 mg PO BID Qty: 0 0RF magnes ium oxide 400 MG tablet 400 mg PO HS Qty: 0 0RF levoth yroxin e [Synth roid] 25 MCG tablet 50 mcg PO HS omepra zole 20 mg Capsul e,Karina yoko Releas e(/E c) 20 mg PO DAILY prochl orpera zine maleat e 10 mg Tablet 10 mg PO DAILY PRN (Reaso n: Headac he) albute rol sulfat e [Alvaro janet HFA] 90 mcg/ac tuatio n Hfa Aeroso l Inhale r 2 puff INHALA TION QID PRN naloxo ne [Narca n] 4 mg/act uation [place], Non-Ae rosol 1 spray INTRAN NEELA ONCE PRN Patien t Comm ts: Never used. valacy clovir 1 gram tablet 500 mg PO QHS aspiri n 81 mg tablet ,delay ed releas e (/EC ) 81 mg PO DAILY Qty: 14 0RF Rx Instru ctions : Take 1 daily with a meal for 30 days estrad iol 1 mg tablet See Rx Instru ctions .ROUTE .COMPL EX Surendra olmedo Commen ts: TAKE 1 TABLET BY MOUTH EVERY MORNIN G THEN 2 TABLET S EVERY EVENIN G Rx Instru ctions : --> 1mg qAM and 1.5m,g qPM hydroc ortiso ne 2.5 % cream 1 applic topica l QID Qty: 30 6RF acetam inophe n 500 mg capsul e 1,000 mg PO Q8H PRN PRNQty : 30 0RF lamotr igine [Lamic karla] 100 mg tablet 150 mg PO HS Patien honorio Commen ts: TAKE 1 TABLET BY MOUTH EVERY DAY buprop ion HCl 150 mg tablet extend ed releas e 24 hr 150 mg PO BID Patistephanie olmedo Commen ts: TAKE ONE TABLET BY MOUTH TWICE A DAY WITH MEALS cc: MANISHA ELLIS MD ------ ------ ------ ------ ------ ------ ------ ------ ------ ------ ------ --- Dictat ed by: Andie Mcintyre M.D. Dictat ed: Time: 2 Date: 640 Date: Date: Transc ribed Date: Transc ribed Time: 2 By: LA This is privil eged, confid ential inform ation, intend ed only for the provid er named. Any use or distri bution by any person other than this provid er is strict ly prohib ited. If you receiv e this report in error, please notify us immleela bernardo at and return the origin al report to us at the addres s above. Thank you. [facility] [address] [place], [address] 01/11/2024 07:54:44 01/11/20 24 01/11/2024 ED progr ess note ED Progre ss Note SURENDRA Olmedo NAME: Naya Andrea UNIT #: [id number] ADMITT ING PROVID ER: Prudencio Babcock M.D. ACCOUN T #: [id number] PRIMAR Y CARE PROVID ER: MANISHA ELLIS MD DATE OF ADMIT: : 1974 Date of servic e: Time of Servic e: 07:18 Medica l Decisi on Making I receiv ed signou t on this 48-yea r-old female in the emerge ncy depart ment [facility] in the settin g of suicid al ideati on. No active behavi oral issues last shift. Patien t is pendin g placem ent. Will update docume ntatio n as [facility] and signed patien t out to the oncomi ng evenin g provid er. 5:10 PM No active behavi oral issues last shift. Will sign patien t out to oncomi ng evenin g provid er. Qualit y:SDOH Health Relate d Social Needs: No Data to Displa y Sign Out Sign Out Data: Sign Out Commen t: Care signed out to Dr. Jeremiah Metz no, please see my docume magali fontenot regard ing initia l ED presen tation and course . Plan at signou t is to contin ue to monito r until inpati ent treatm ent can be identi fied. Psychi atric consul t pendin g. Patien t is bringi janis in her home medica tions that we do not have these in [facility]. Other home medica tions have been ordere d. Last update d by Cisco French MD at 17:16 Sign Out Commen t: Still waitin g for placem ent for SI is [facility], no issues during shift Ordere d her home tripta n medica tion for [facility] Last update d by Frankie Pelaez i, MD at 21:36 Sign Out Commen t: 48F, SI, [facility], medica lly cleare d, pendin g placem ent. Last update d by Andie Mcintyre MD at 06:12 Sign Out Commen t: depres gladis, SI, awaiti ng placem ent Last update d by Shelli Pratt MD at 22:49 Sign Out Commen t: 48yo F, SI, medica lly cleare d, home meds in, pendin g [facility] placem ent. Last update d by Andie Mcintyre MD at 06:53 Sign Out Commen t: pendin g [facility] placem ent for SI/dep ressio n, stable during shift Last update d by Wanda Ricardo MD at 16:14 Sign Out Commen t: Medica lly cleare d [facility] patien t with suicid al ideati on. No active behavi oral issues last shift. Last update d by Prudencio Babcock MD at 21:56 Sign Out Commen t: [facility] for SI/dep ressio n, pendin g placem ent, no issues during shift Last update d by Wanda Ricardo MD at 09:34 Sign Out Commen t: [facility] for SI/dep ressio n, pendin g placem ent, no issues during shift Last update d by Frankie Pelaez i, MD at 22:31 Sign Out Commen t: [facility] SI, pendin g placem ent, no behavi oral issues overni ght Last update d by Andie Mcintyre MD at 04:51 Sign Out Commen t: Still waitin g for placem ent for SI is [facility], no issues during shift Last update d by Wanda Ricardo MD at 15:42 Discha rge Plan Discha rge Detail s Chief Compla int: PsychE nichelle Primar y Care Provid er: Manisha Ellis ED Provid er: Prudencio Babcock Home Meds and New Rx's Prescr iption s: No Action naprox en 250 mg tablet 500 mg PO BID PRN Hold Instru ctions : Hold until PCP f/u clonaz epam 1 mg tablet 1 mg PO BID PRN melato jerry 10 mg tablet 10 mg PO HS PRN lorata dine 10 mg capsul e 10 mg PO DAILY buprop ion HCl [Wellb utrin SR] 150 mg tablet sustai ene-re lease 12 hr 150 mg PO BID cholec alcife rol (vitam in D3) 50 mcg (2,000 unit) capsul e 50 mcg PO DAILY metfor min 500 mg tablet extend ed releas e 24 hr 1,000 mg PO BID Trulic ity 1.5 mg/0.5 mL pen inject or 3 mg subcut QWEEK Hold Instru ctions : Until f/u with PCP or if blood glucos e levels begin to rise Rx Instru ctions : - on ursd ays rosuva statin [Crest or] 5 MG tablet 10 mg PO QPM naratr iptan 2.5 mg tablet 2.5 mg PO BID PRN ribofl liliam (vitam in B2) [Vitam in B-2] 50 MG tablet 200 mg PO BID polyet hylene glycol 3350 17 gram/d ose Powder 17 g PO DAILY PRN cyanoc obalam in (vitam in B-12) 1,000 mcg tablet 1,000 mcg PO DAILY Patien t Commen ts: TAKE ONE TABLET BY MOUTH EVERY DAY duloxe sonny 30 mg capsul e,karina yed releas e(DR/E C) 30 mg PO DAILY Patien t Commen ts: Take 1 capsul e by mouth once a day to replac e paxil which she will wean off icosap ent ethyl [Herlinda pa] 1 gram capsul e 2 g PO BID Patien t Commen ts: TAKE TWO CAPSUL ES BY MOUTH TWICE A DAY Farxig a 5 mg tablet 5 mg PO DAILY Patien t Commen ts: Take 1 tablet by mouth once a day hydrom orphon e 2 mg tablet 4 mg PO BID Patien t Commen ts: TAKE TWO TABLET S BY MOUTH TWICE A DAY Entres to 97-103 mg tablet 1 tab PO BID Hold Instru ctions : Hold until PCP f/u or if SBP is consis tently > 120 mmHg Patien t Commen ts: TAKE ONE TABLET BY MOUTH TWICE A DAY pregab deonna 100 mg capsul e 100 mg PO TID Patien t Commen ts: Take 1 capsul e by mouth three times a day metopr olol tartra te 25 mg Tablet 12.5 mg PO BID Qty: 0 0RF magnes ium oxide 400 MG tablet 400 mg PO HS Qty: 0 0RF levoth yroxin e [Synth roid] 25 MCG tablet 50 mcg PO HS omepra zole 20 mg Capsul e,Karina yed Releas e(Dr/E c) 20 mg PO DAILY prochl orpera zine maleat e 10 mg Tablet 10 mg PO DAILY PRN (Reaso n: Headac he) albute rol sulfat e [Alvaro janet HFA] 90 mcg/ac tuatio n Hfa Aeroso l Inhale r 2 puff INHALA TION QID PRN naloxo ne [Narca n] 4 mg/act uation [place], Non-Ae rosol 1 spray INTRAN NEELA ONCE PRN Patien t ts: Never used. valacy clovir 1 gram tablet 500 mg PO QHS aspiri n 81 mg tablet ,delay ed releas e (DR/EC ) 81 mg PO DAILY Qty: 14 0RF Rx Instru ctions : Take 1 daily with a meal for 30 days estrad iol 1 mg tablet See Rx Instru ctions .ROUTE .COMPL EX Patien t Comm ts: TAKE 1 TABLET BY MOUTH EVERY MORNIN G THEN 2 TABLET S EVERY EVENIN G Rx Instru ctions : --> 1mg qAM and 1.5m,g qPM hydroc ortiso ne 2.5 % cream 1 applic topica l QID Qty: 30 6RF acetam inophe n 500 mg capsul e 1,000 mg PO Q8H PRN PRNQty : 30 0RF lamotr igine [Lamic karla] 100 mg tablet 150 mg PO HS Patien t ts: TAKE 1 TABLET BY MOUTH EVERY DAY buprop ion HCl 150 mg tablet extend ed releas e 24 hr 150 mg PO BID Pati t ts: TAKE ONE TABLET BY MOUTH TWICE A DAY WITH MEALS cc: MANISHA ELLIS MD ------ ------ ------ ------ ------ ------ ------ ------ ------ ------ ------ --- Dictat ed by: Prudencio Babcock M.D. Dictat ed: Time: 071 8 Date: 1710 Date: Date: Transc ribed Date: Transc ribed Time: 717 By: P.NESJ This is privil eged, confid ential inform ation, intend ed only for the provid er named. Any use or distri bution by any person other than this provid er is strict ly prohib ited. If you receiv e this report in error, please notify us immedi tova at [phone] and return the origin al report to us at the addres s above. Thank you. [facility] [address] [place], [address] 01/11/2024 17:26:01 01/11/20 24 01/07/2024 ED progr ess note ED Progre ss Note PATIEN T NAME: Naya Andrea UNIT #: [id number] ADMITT ING PROVID ER: Andie Mcintyre M.D. ACCOUN T #: [id number] PRIMAR Y CARE PROVID ER: MANISHA ELLIS MD DATE OF ADMIT: : 1974 Addend a I receiv ed signou t on this patien t. Please see my separa te note for detail s. Addend um dictat ed by Prudencio Babcock M.D. 1921 Transc ribed By: Prudencio olmedo 1921 Cosign ed by Date of servic e: Time of Servic e: 23:20 Medica efrain Owens on Making This patien t was signed out to me. Please see previo us notes for H P and initia l eval. In brief, 48yo F presen ts [facility] with SI. Medica lly cleare d, [facility] recc [facility] inpati ent placem ent. Signed out awaiti ng placem ent. Overni ght appear ed to be sleepi ng restfu lly. Did not wake patien t for assess ment. Signed out to oncmissy bruce physic ketan, plan remain s as above. Qualit y:SDOH Health Relate d Social Needs: No Data to Displa y Sign Out Sign Out Data: Sign Out Commen t: Care signed out to Dr. Jeremiah Metz no, please see my docume ntatio n regard ing initia l ED presen tation and course . Plan at signou t is to contin ue to monito r until inpati ent treatm ent can be identi fied. Psychi atric consul t lesa yee. Patistephanie t is bringi janis in her home medica tions that we do not have these in [facility]. Other home medica tions have been ordere d. Last update d by Cisco French MD at 17:16 Sign Out Commen t: lili griffith SI, erika rbuce placem ent Last update d by Shelli Pratt MD at 22:49 Discha rge Plan Discha rge Detail s Chief Compla int: PsychE nichelle Primar y Care Provid er: Manisha Ellis ED Provid er: Andie Mcintyre Home Meds and New Rx's Prescr iption s: No Action naprox en 250 mg tablet 500 mg PO BID PRN Hold Instru ctions : Hold until PCP f/u clonaz epam 1 mg tablet 1 mg PO BID PRN melato jerry 10 mg tablet 10 mg PO HS PRN lorata dine 10 mg capsul e 10 mg PO DAILY buprop ion HCl [Wellb utrin SR] 150 mg tablet sustai ene-re lease 12 hr 150 mg PO BID cholec alcife rol (vitam in D3) 50 mcg (2,000 unit) capsul e 50 mcg PO DAILY metfor min 500 mg tablet extend ed releas e 24 hr 1,000 mg PO BID Trulic ity 1.5 mg/0.5 mL pen inject or 3 mg subcut QWEEK Hold Instru ctions : Until f/u with PCP or if blood glucos e levels begin to rise Rx Instru ctions : - on Thursd ays rosuva statin [Crest or] 5 MG tablet 10 mg PO QPM naratr iptan 2.5 mg tablet 2.5 mg PO BID PRN ribofl liliam (vitam in B2) [Vitam in B-2] 50 MG tablet 200 mg PO BID polyet hylene glycol 3350 17 gram/d ose Powder 17 g PO DAILY PRN cyanoc obalam in (vitam in B-12) 1,000 mcg tablet 1,000 mcg PO DAILY Patien t Commen ts: TAKE ONE TABLET BY MOUTH EVERY DAY duloxe sonny 30 mg capsul e,karina yed releas e(DR/E C) 30 mg PO DAILY Patien t Comm ts: Take 1 capsul e by mouth once a day to replac e paxil which she will wean off icosap ent ethyl [Vasce pa] 1 gram capsul e 2 g PO BID Patien t ts: TAKE TWO CAPSUL ES BY MOUTH TWICE A DAY Farxig a 5 mg tablet 5 mg PO DAILY Patien t Comm ts: Take 1 tablet by mouth once a day hydrom orphon e 2 mg tablet 4 mg PO BID Patien t Comm ts: TAKE TWO TABLET S BY MOUTH TWICE A DAY Entres to 97-103 mg tablet 1 tab PO BID Hold Instru ctions : Hold until PCP f/u or if SBP is consis tently > 120 mmHg Patien t ts: TAKE ONE TABLET BY MOUTH TWICE A DAY pregab deonna 100 mg capsul e 100 mg PO TID Patien t ts: Take 1 capsul e by mouth three times a day metopr olol tartra te 25 mg Tablet 12.5 mg PO BID Qty: 0 0RF magnes ium oxide 400 MG tablet 400 mg PO HS Qty: 0 0RF levoth yroxin e [Synth roid] 25 MCG tablet 50 mcg PO HS omepra zole 20 mg Capsul e,Karina yed Releas e(/E c) 20 mg PO DAILY prochl orpera zine maleat e 10 mg Tablet 10 mg PO DAILY PRN (Reaso n: Headac he) albute rol sulfat e [Alvaro janet HFA] 90 mcg/ac tuatio n Hfa Aeroso l Inhale r 2 puff INHALA TION QID PRN naloxo ne [Narca n] 4 mg/act uation [place], Non-Ae rosol 1 spray INTRAN NEELA ONCE PRN Patien t ts: Never used. valacy clovir 1 gram tablet 500 mg PO QHS aspiri n 81 mg tablet ,delay ed releas e (DR/EC ) 81 mg PO DAILY Qty: 14 0RF Rx Instru ctions : Take 1 daily with a meal for 30 days estrad iol 1 mg tablet See Rx Instru ctions .ROUTE .COMPL EX Patien t Commen ts: TAKE 1 TABLET BY MOUTH EVERY MORNIN G THEN 2 TABLET S EVERY EVENIN G Rx Instru ctions : --> 1mg qAM and 1.5m,g qPM hydroc ortiso ne 2.5 % cream 1 applic topica l QID Qty: 30 6RF acetam inophe n 500 mg capsul e 1,000 mg PO Q8H PRN PRNQty : 30 0RF lamotr igine [Lamic karla] 100 mg tablet 150 mg PO HS Patien t Commen ts: TAKE 1 TABLET BY MOUTH EVERY DAY buprop ion HCl 150 mg tablet extend ed releas e 24 hr 150 mg PO BID Patien t Commen ts: TAKE ONE TABLET BY MOUTH TWICE A DAY WITH MEALS cc: MANISHA ELLIS MD ------ ------ ------ ------ ------ ------ ------ ------ ------ ------ ------ --- Dictat ed by: Andie Mcintyre M.D. Dictat ed: Time: 2319 Date: 650 Date: Date: Transc ribed Date: Transc ribed Time: 2319 By: LA This is privil eged, confid ential inform ation, intend ed only for the provid er named. Any use or distri bution by any person other than this provid er is strict ly prohib ited. If you receiv e this report in error, please notify us immedi russly at and return the origin al report to us at the addres s above. Thank you. [facility] [address] [place], [address] 01/12/2024 19:02:28 01/11/20 24 01/11/2024 ED progr ess note ED Progre ss Note SURENDRA Olmedo NAME: Naya Andrea UNIT #: [id number] ADMITT ING PROVID ER: Andie Mcintyre M.D. ACCOUN T #: [id number] PRIMAR Y CARE PROVID ER: MANISHA ELLIS MD DATE OF ADMIT: : 1974 Addend a I receiv ed signou t on this patien t. Please see my separa te note for detail s. Addend um dictat ed by Prudencio Babcock M.D. 1921 Transc ribed By: Prudencio olmedo 1921 Cosign ed by Date of servic e: Time of Servic e: 23:30 Medica l Decisi on Making This patien t was signed out to me. Please see previo us notes for H P and initia l eval. In brief, 48yo F presen ting with SI, medica [place]ly [place], pendin g [facility] psychi atric placem ent. Overni ght no acute behavi oral events . Did not wake patien t for evalua tion. Signed out to oncmissy aceves, plan remain s as above. Qualit y:SDOH Health Relate d Social Needs: No Data to Displa y Sign Out Sign Out Data: Sign Out Commen t: Care signed out to Dr. Jeremiah Metz no, please see my docume ntatio n regard ing initia l ED presen tation and course . Plan at signou t is to contin ue to monito r until inpati ent treatm ent can be identi fied. Psychi atric consul t pendin g. Patien t is daniela bruce in her home medica tions that we do not have these in [facility]. Other home medica tions have been ordere d. Last update d by Cisco French MD at 17:16 Sign Out Commen t: Still waitin g for placem ent for SI is [facility], no issues during shift Ordere d her home tripta n medica tion for [facility] Last update d by Frankie Pelaez i, MD at 21:36 Sign Out Commen t: 48F, SI, [facility], medica [place]ly [place]art[place], pendin g placem ent. Last update d by Andie Mcintyre MD at 06:12 Sign Out Commen t: depres gladis, SI, awaiti ng placem ent Last update d by Shelli Pratt MD at 22:49 Sign Out Commen t: 48yo F, SI, medica lly cleare d, home meds in, pendin g [facility] placem ent. Last update d by Andie Mcintyre MD at 06:53 Sign Out Commen t: pendin g [facility] placem ent for SI/dep ressio n, stable during shift Last update d by Wanda Ricardo MD at 16:14 Sign Out Commen t: Medica lly cleare d [facility] patien t with suicid al ideati on. No active behavi oral issues last shift. Last update d by Prudencio Babcock MD at 21:56 Sign Out Commen t: [facility] for SI/dep ressio n, pendin g placem ent, no issues during shift Last update d by Wanda Ricardo MD at 09:34 Sign Out Commen t: [facility] for SI/dep ressio n, pendin g placem ent, no issues during shift Last update d by Frankie Pelaez i, MD at 22:31 Sign Out Commen t: [facility] SI, pendin g placem ent, no behavi oral issues overni ght Last update d by Andie Mcintyre MD at 04:51 Sign Out Commen t: Still waitin g for placem ent for SI is [facility], no issues during shift Last update d by Wanda Ricardo MD at 15:42 Discha rge Plan Discha rge Detail s Chief Compla int: PsychE nichelle Primar y Care Provid er: Manisha Ellis ED Provid er: Andie Mcintyre Home Meds and New Rx's Prescr iption s: No Action naprox en 250 mg tablet 500 mg PO BID PRN Hold Instru ctions : Hold until PCP f/u clonaz epam 1 mg tablet 1 mg PO BID PRN melato jerry 10 mg tablet 10 mg PO HS PRN lorata dine 10 mg capsul e 10 mg PO DAILY buprop ion HCl [Wellb utrin SR] 150 mg tablet sustai ene-re lease 12 hr 150 mg PO BID cholec alcife rol (vitam in D3) 50 mcg (2,000 unit) capsul e 50 mcg PO DAILY metfor min 500 mg tablet extend ed releas e 24 hr 1,000 mg PO BID Trulic ity 1.5 mg/0.5 mL pen inject or 3 mg subcut QWEEK Hold Instru ctions : Until f/u with PCP or if blood glucos e levels begin to rise Rx Instru ctions : - on ays rosuva statin [Crest or] 5 MG tablet 10 mg PO QPM naratr iptan 2.5 mg tablet 2.5 mg PO BID PRN ribofl liliam (vitam in B2) [Vitam in B-2] 50 MG tablet 200 mg PO BID polyet hylene glycol 3350 17 gram/d ose Powder 17 g PO DAILY PRN cyanoc obalam in (vitam in B-12) 1,000 mcg tablet 1,000 mcg PO DAILY Patien t Commen ts: TAKE ONE TABLET BY MOUTH EVERY DAY duloxe sonny 30 mg capsul e,karina yed releas e(DR/E C) 30 mg PO DAILY Patien t Commen ts: Take 1 capsul e by mouth once a day to replac e paxil which she will wean off icosap ent ethyl [Mariece pa] 1 gram capsul e 2 g PO BID Patien t Commen ts: TAKE TWO CAPSUL ES BY MOUTH TWICE A DAY Farxig a 5 mg tablet 5 mg PO DAILY Patien t Commen ts: Take 1 tablet by mouth once a day hydrom orphon e 2 mg tablet 4 mg PO BID Patien t Commen ts: TAKE TWO TABLET S BY MOUTH TWICE A DAY Entres to 97-103 mg tablet 1 tab PO BID Hold Instru ctions : Hold until PCP f/u or if SBP is consis tently > 120 mmHg Patien t Commen ts: TAKE ONE TABLET BY MOUTH TWICE A DAY pregab deonna 100 mg capsul e 100 mg PO TID Patien t Commen ts: Take 1 capsul e by mouth three times a day metopr olol tartra te 25 mg Tablet 12.5 mg PO BID Qty: 0 0RF magnes ium oxide 400 MG tablet 400 mg PO HS Qty: 0 0RF levoth yroxin e [Synth roid] 25 MCG tablet 50 mcg PO HS omepra zole 20 mg Capsul e,Karina yed Releas e(Dr/E c) 20 mg PO DAILY prochl orpera zine maleat e 10 mg Tablet 10 mg PO DAILY PRN (Reaso n: Headac he) albute rol sulfat e [Alvaro janet HFA] 90 mcg/ac tuatio n Hfa Aeroso l Inhale r 2 puff INHALA TION QID PRN naloxo ne [Narca n] 4 mg/act uation [place], Non-Ae rosol 1 spray INTRAN NEELA ONCE PRN Patien t Comm ts: Never used. valacy clovir 1 gram tablet 500 mg PO QHS aspiri n 81 mg tablet ,delay ed releas e (DR/EC ) 81 mg PO DAILY Qty: 14 0RF Rx Instru ctions : Take 1 daily with a meal for 30 days estrad iol 1 mg tablet See Rx Instru ctions .ROUTE .COMPL EX Patien t Comm ts: TAKE 1 TABLET BY MOUTH EVERY MORNIN G THEN 2 TABLET S EVERY EVENIN G Rx Instru ctions : --> 1mg qAM and 1.5m,g qPM hydroc ortiso ne 2.5 % cream 1 applic topica l QID Qty: 30 6RF acetam inophe n 500 mg capsul e 1,000 mg PO Q8H PRN PRNQty : 30 0RF lamotr igine [Lamic karla] 100 mg tablet 150 mg PO HS Patien t Comm ts: TAKE 1 TABLET BY MOUTH EVERY DAY buprop ion HCl 150 mg tablet extend ed releas e 24 hr 150 mg PO BID Patien t Comm ts: TAKE ONE TABLET BY MOUTH TWICE A DAY WITH MEALS cc: MANISHA ELLIS MD ------ ------ ------ ------ ------ ------ ------ ------ ------ ------ ------ --- Dictat ed by: Andie Mcintyre M.D. Dictat ed: Time: 0003 Date: 0641 Date: Date: Transc ribed Date: Transc ribed Time: 2 By: LA This is privil eged, confid ential inform ation, intend ed only for the provid er named. Any use or distri bution by any person other than this provid er is strict ly prohib ited. If you receiv e this report in error, please notify us immedi ately at [phone] and return the origin al report to us at the addres s above. Thank you. [facility] [address], [place], [address] 01/12/2024 19:02:29 01/11/20 24 01/09/2024 ED progr ess note ED Progre ss Note PATIEN T NAME: Naya Andrea UNIT #: [id number] ADMITT ING PROVID ER: Andie Mcintyre M.D. ACCOUN T #: [id number] PRIMAR Y CARE PROVID ER: MANISHA ELLIS MD DATE OF ADMIT: : 1974 Addend a I receiv ed signou t on this patien t. Please see my separa te note for detail s. Addend um dictat ed by Prudencio Babcock M.D. 1922 Transc ribed By: Prudencio olmedo 1922 Cosign ed by Date of servic e: Time of Servic e: 23:27 Medica l Decisi on Making This patien t was signed out to me. Please see previo us notes for H P and initia l eval. In brief, 48you F medica lly cleare d pendin g [facility] for SI. Overni ght no behavi oral events , appear ed to be sleepi ng comfor tably. Did not wake patien t for assess ment. Signed out to oncomi ng physic ketan, plan remain s as above. Qualit y:SDOH Health Relate d Social Needs: No Data to Displa y Sign Out Sign Out Data: Sign Out Commen t: Care signed out to Dr. Jeremiah Metz no, please see my docume ntatio n regard ing initia l ED presen tation and course . Plan at signou t is to contin ue to monito r until inpati ent treatm ent can be identi fied. Psychi atric consul t pendin g. Patien t is bringi ng in her home medica tions that we do not have these in [facility]. Other home medica tions have been ordere d. Last update d by Cisco French MD at 17:16 Sign Out Commen t: depres gladis, SI, awaiti ng placem ent Last update d by Shelli Pratt MD at 22:49 Sign Out Commen t: 48yo F, SI, medica lly cleare d, home meds in, pendin g [facility]. Last update d by Andie Mcintyre MD at 06:53 Sign Out Commen t: pendin g [facility] plac[facility] for SI/dep ressio n, stable during shift Last update d by Wanda Ricardo MD at 16:14 Sign Out Commen t: Medica lly cleare d [facility] patien t with suicid al ideati on. No active behavi oral issues last shift. Last update d by Prudencio Babcock MD at 21:56 Sign Out Commen t: [facility] for SI/dep ressio n, pendin g placem ent, no issues during shift Last update d by Wanda Ricardo MD at 09:34 Sign Out Commen t: [facility] for SI/dep ressio n, pendin g placem ent, no issues during shift Last update d by Frankie Pelaez i, MD at 22:31 Sign Out Commen t: [facility] SI, pendin g placem ent, no behavi oral issues overni ght Last update d by Andie Mcintyre MD at 04:51 Discha rge Plan Discha rge Detail s Chief Compla int: PsychE nichelle Primar y Care Provid er: Manisha Ellis ED Provid er: Andie Mcintyre vanda Home Meds and New Rx's Prescr iption s: No Action naprox en 250 mg tablet 500 mg PO BID PRN Hold Instru ctions : Hold until PCP f/u clonaz epam 1 mg tablet 1 mg PO BID PRN melato jerry 10 mg tablet 10 mg PO HS PRN lorata dine 10 mg capsul e 10 mg PO DAILY buprop ion HCl [Wellb utrin SR] 150 mg tablet sustai ene-re lease 12 hr 150 mg PO BID cholec alcife rol (vitam in D3) 50 mcg (2,000 unit) capsul e 50 mcg PO DAILY metfor min 500 mg tablet extend ed releas e 24 hr 1,000 mg PO BID Trulic ity 1.5 mg/0.5 mL pen inject or 3 mg subcut QWEEK Hold Instru ctions : Until f/u with PCP or if blood glucos e levels begin to rise Rx Instru ctions : - on Thursd ays rosuva statin [Crest or] 5 MG tablet 10 mg PO QPM naratr iptan 2.5 mg tablet 2.5 mg PO BID PRN ribofl liliam (vitam in B2) [Vitam in B-2] 50 MG tablet 200 mg PO BID polyet hylene glycol 3350 17 gram/d ose Powder 17 g PO DAILY PRN cyanoc obalam in (vitam in B-12) 1,000 mcg tablet 1,000 mcg PO DAILY Patien t Commen ts: TAKE ONE TABLET BY MOUTH EVERY DAY duloxe sonny 30 mg capsul e,karina yed releas e(DR/E C) 30 mg PO DAILY Patien t Commen ts: Take 1 capsul e by mouth once a day to replac e paxil which she will wean off icosap ent ethyl [Vasce pa] 1 gram capsul e 2 g PO BID Patien t Commen ts: TAKE TWO CAPSUL ES BY MOUTH TWICE A DAY Farxig a 5 mg tablet 5 mg PO DAILY Patien t Commen ts: Take 1 tablet by mouth once a day hydrom orphon e 2 mg tablet 4 mg PO BID Patien t Commen ts: TAKE TWO TABLET S BY MOUTH TWICE A DAY Entres to 97-103 mg tablet 1 tab PO BID Hold Instru ctions : Hold until PCP f/u or if SBP is consis tently > 120 mmHg Patien t Commen ts: TAKE ONE TABLET BY MOUTH TWICE A DAY pregab deonna 100 mg capsul e 100 mg PO TID Patien t Commen ts: Take 1 capsul e by mouth three times a day metopr olol tartra te 25 mg Tablet 12.5 mg PO BID Qty: 0 0RF magnes ium oxide 400 MG tablet 400 mg PO HS Qty: 0 0RF levoth yroxin e [Synth roid] 25 MCG tablet 50 mcg PO HS omepra zole 20 mg Capsul e,Karina yed Releas e(Dr/E c) 20 mg PO DAILY prochl orpera zine maleat e 10 mg Tablet 10 mg PO DAILY PRN (Reaso n: Headac he) albute rol sulfat e [Alvaro janet HFA] 90 mcg/ac tuatio n Hfa Aeroso l Inhale r 2 puff INHALA TION QID PRN naloxo ne [Narca n] 4 mg/act uation Camak, Non-Ae rosol 1 spray INTRAN NEELA ONCE PRN Patien t Commen ts: Never used. valacy clovir 1 gram tablet 500 mg PO QHS aspiri n 81 mg tablet ,delay ed releas e (DR/EC ) 81 mg PO DAILY Qty: 14 0RF Rx Instru ctions : Take 1 daily with a meal for 30 days estrad iol 1 mg tablet See Rx Instru ctions .ROUTE .COMPL EX Patien t Commen ts: TAKE 1 TABLET BY MOUTH EVERY MORNIN G THEN 2 TABLET S EVERY EVENIN G Rx Instru ctions : --> 1mg qAM and 1.5m,g qPM hydroc ortiso ne 2.5 % cream 1 applic topica l QID Qty: 30 6RF acetam inophe n 500 mg capsul e 1,000 mg PO Q8H PRN PRNQty : 30 0RF lamotr igine [Lamic karla] 100 mg tablet 150 mg PO HS Patien t Commen ts: TAKE 1 TABLET BY MOUTH EVERY DAY buprop ion HCl 150 mg tablet extend ed releas e 24 hr 150 mg PO BID Patien t Commen ts: TAKE ONE TABLET BY MOUTH TWICE A DAY WITH MEALS cc: MANISHA ELLIS MD ------ ------ ------ ------ ------ ------ ------ ------ ------ ------ ------ --- Dictat ed by: Andie Mcintyre M.D. Dictat ed: Time: 2326 Date: 50 Date: Date: Transc ribed Date: Transc ribed Time: 2326 By: LA This is privil eged, confid ential inform ation, intend ed only for the provid er named. Any use or distri bution by any person other than this provid er is strict ly prohib ited. If you receiv e this report in error, please notify us immedi russly at and return the origin al report to us at the addres s above. Thank you. [facility] [address], [place], [address] 01/12/2024 19:02:29 01/11/20 24 01/08/2024 ED progr ess note ED Progre ss Note SURENDRA Olmedo NAME: Naya Andrea UNIT #: [id number] ADMITT ING PROVID ER: Andie Mcintyre M.D. ACCOUN T #: [id number] [facility]IM[facility] CARE PROVID ER: MANISHA ELLIS MD DATE OF ADMIT: : 1974 Addend a I receiv ed signou t on this patien t. Please see my separa te note for detail s. Addend um dictat ed by Prudencio Babcock M.D. 1923 Transc ribed By: Prudencio olmedo 1923 Cosign ed by Date of servic e: Time of Servic e: 23:12 Medica l Decisi on Making This patistephanie t was signed out to me. Please see previo us notes for H P and initia l eval. In brief, 48yo F awaiti ng [facility] for SI. Overni ght appear ed to be sleepi ng comfor tably. No behavi oral issues . Did not wake patien t for assess ment. Signed out to oncomi ng physic ketan, plan remain s as above. Qualit y:SDOH Health Relate d Social Needs: No Data to Displa y Sign Out Sign Out Data: Sign Out Commen t: Care signed out to Dr. Jeremiah Metz no, please see my docume ntatio n regard ing initia l ED presen tation and course . Plan at signou t is to contin ue to monito r until inpati ent treatm ent can be identi fied. Psychi atric consul t pendin g. Patien t is bringi ng in her home medica tions that we do not have these in [facility]. Other home medica tions have been ordere d. Last update d by Cicso French MD at 17:16 Sign Out Commen t: depres gladis, SI, awaiti ng placem ent Last update d by Shelli Pratt MD at 22:49 Sign Out Commen t: 48yo F, SI, medica lly cleare d, home meds in, pendin [facility]. Last update d by Andie Mcintyre MD at 06:53 Sign Out Commen t: pendin g [facility] for SI/dep ressio n, stable during shift Last update d by Wanda Ricardo MD at 16:14 Sign Out Commen t: Medica lly cleare d [facility] patien t with suicid al ideati on. No active behavi oral issues last shift. Last update d by Prudencio Babcock MD at 21:56 Discha rge Plan Discha rge Detail s Chief Compla int: PsychE nichelle Primar y Care Provid er: Manisha Ellis ED Provid er: Andie Mcintyre Home Meds and New Rx's Prescr iption s: No Action naprox en 250 mg tablet 500 mg PO BID PRN Hold Instru ctions : Hold until PCP f/u clonaz epam 1 mg tablet 1 mg PO BID PRN melato jerry 10 mg tablet 10 mg PO HS PRN lorata dine 10 mg capsul e 10 mg PO DAILY buprop ion HCl [Wellb utrin SR] 150 mg tablet sustai ene-re lease 12 hr 150 mg PO BID cholec alcife rol (vitam in D3) 50 mcg (2,000 unit) capsul e 50 mcg PO DAILY metfor min 500 mg tablet extend ed releas e 24 hr 1,000 mg PO BID Trulic ity 1.5 mg/0.5 mL pen inject or 3 mg subcut QWEEK Hold Instru ctions : Until f/u with PCP or if blood glucos e levels begin to rise Rx Instru ctions : - on ays rosuva statin [Crest or] 5 MG tablet 10 mg PO QPM naratr iptan 2.5 mg tablet 2.5 mg PO BID PRN ribofl liliam (vitam in B2) [Vitam in B-2] 50 MG tablet 200 mg PO BID polyet hylene glycol 3350 17 gram/d ose Powder 17 g PO DAILY PRN cyanoc obalam in (vitam in B-12) 1,000 mcg tablet 1,000 mcg PO DAILY Patien t Commen ts: TAKE ONE TABLET BY MOUTH EVERY DAY duloxe sonny 30 mg capsul e,karina yed releas e(DR/E C) 30 mg PO DAILY Patien t Commen ts: Take 1 capsul e by mouth once a day to replac e paxil which she will wean off icosap ent ethyl [Herlinda pa] 1 gram capsul e 2 g PO BID Patien t Commen ts: TAKE TWO CAPSUL ES BY MOUTH TWICE A DAY Farxig a 5 mg tablet 5 mg PO DAILY Patien t Commen ts: Take 1 tablet by mouth once a day hydrom orphon e 2 mg tablet 4 mg PO BID Patien t Commen ts: TAKE TWO TABLET S BY MOUTH TWICE A DAY Entres to 97-103 mg tablet 1 tab PO BID Hold Instru ctions : Hold until PCP f/u or if SBP is consis tently > 120 mmHg Patien t Commen ts: TAKE ONE TABLET BY MOUTH TWICE A DAY pregab deonna 100 mg capsul e 100 mg PO TID ts: Take 1 capsul e by mouth three times a day metopr olol tartra te 25 mg Tablet 12.5 mg PO BID Qty: 0 0RF magnes ium oxide 400 MG tablet 400 mg PO HS Qty: 0 0RF levoth yroxin e [Synth roid] 25 MCG tablet 50 mcg PO HS omepra zole 20 mg Capsul e,Karina yed Releas e(Dr/E c) 20 mg PO DAILY prochl orpera zine maleat e 10 mg Tablet 10 mg PO DAILY PRN (Reaso n: Headac he) albute rol sulfat e [Alvaro janet HFA] 90 mcg/ac tuatio n Hfa Aeroso l Inhale r 2 puff INHALA TION QID PRN naloxo ne [Narca n] 4 mg/act uation Camak, Non-Ae rosol 1 spray INTRAN NEELA ONCE PRN ts: Never used. valacy clovir 1 gram tablet 500 mg PO QHS aspiri n 81 mg tablet ,delay ed releas e (DR/EC ) 81 mg PO DAILY Qty: 14 0RF Rx Instru ctions : Take 1 daily with a meal for 30 days estrad iol 1 mg tablet See Rx Instru ctions .ROUTE .COMPL EX ts: TAKE 1 TABLET BY MOUTH EVERY MORNIN G THEN 2 TABLET S EVERY EVENIN G Rx Instru ctions : --> 1mg qAM and 1.5m,g qPM hydroc ortiso ne 2.5 % cream 1 applic topica l QID Qty: 30 6RF acetam inophe n 500 mg capsul e 1,000 mg PO Q8H PRN PRNQty : 30 0RF lamotr igine [Lamic karla] 100 mg tablet 150 mg PO HS ts: TAKE 1 TABLET BY MOUTH EVERY DAY buprop ion HCl 150 mg tablet extend ed releas e 24 hr 150 mg PO BID ts: TAKE ONE TABLET BY MOUTH TWICE A DAY WITH MEALS cc: MANISHA ELLIS MD ------ ------ ------ ------ ------ ------ ------ ------ ------ ------ ------ --- Dictat ed by: Andie Mcintyre M.D. Dictat ed: Time: 2311 Date: 628 Date: Date: Transc ribed Date: Transc ribed Time: 2311 By: LA This is privil eged, confid ential inform ation, intend ed only for the provid er named. Any use or distri bution by any person other than this provid er is strict ly prohib ited. If you receiv e this report in error, please notify us immedi ately at and return the origin al report to us at the addres s above. Thank you. [facility] [address] [place] [address] [place], [address] 01/12/2024 19:02:29 01/11/20 24 01/11/2024 ED progr ess note ED Progre ss Note PATIEN T NAME: Naya Andrea UNIT #: [id number] ADMITT ING PROVID ER: Wanda Ricardo M.D. ACCOUN T #: [id number] PRIMAR Y CARE PROVID ER: MANISHA ELLIS MD DATE OF ADMIT: : 1974 Date of servic e: Time of Servic e: 23:01 Medica l Decisi on Making Patien t still seekin g [facility] plac[facility] for depres gladis and SI, report ed issues during prior shift and curren tly calm and izaiah ative. No acute compla ints. Will contin ue to monito r until safe dispos ition found Qualit y:SDOH Health Relate d Social Needs: No Data to Displa y Sign Out Sign Out Data: Sign Out Commen t: Care signed out to Dr. Jeremiah Metz no, please see my docume ntatihéctor n regard ing initia l ED presen tation and course . Plan at signou t is to contin ue to monito r until inpati ent treatm ent can be identi fied. Psychi atric consul t pendin g. Patien t is bringi ng in her home medica tions that we do not have these in [facility]. Other home medica tions have been ordere d. Last update d by Cisco French MD at 17:16 Sign Out Commen t: Still waitin g for placem ent for SI is [facility], no issues during shift Ordere d her home tripta n medica tion for [facility] Last update d by Frankie Pelaez i, MD at 21:36 Sign Out Commen t: 48F, SI, [facility], medica lly cleare d, pendin g placem ent. Last update d by Andie Mcintyre MD at 06:12 Sign Out Commen t: No active behavi oral issues last shift. Contin ues to be [facility] medica lly cleare d in the settin g of suicid al ideati on. Last update d by Prudencio Babcock MD at 17:12 Sign Out Commen t: No active behavi oral issues during my shift pendin g [facility] plac[facility] for SI medica lly cleare d Last update d by Frankie Pelaez i, MD at 22:37 Sign Out Commen t: depres gladis, SI, awaiti ng placem ent Last update d by Shelli Pratt MD at 22:49 Sign Out Commen t: 48yo F, SI, medica lly cleare d, home meds in, pendin g [facility]. Last update d by Andie Mcintyre MD at 06:53 Sign Out Commen t: pendin g [facility] plac[facility] for SI/dep ressio n, stable during shift Last update d by Wanda Ricardo MD at 16:14 Sign Out Commen t: Medica lly cleare d [facility] patien t with suicid al ideati on. No active behavi oral issues last shift. Last update d by Prudencio Babcock MD at 21:56 Sign Out Commen t: [facility] for SI/dep ressio n, pendin g placem ent, no issues during shift Last update d by Wanda Ricardo MD at 09:34 Sign Out Commen t: [facility] for SI/dep ressio n, pendin g placem ent, no issues during shift Last update d by Frankie Pelaez i, MD at 22:31 Sign Out Commen t: [facility] SI, pendin g placem ent, no behavi oral issues overni ght Last update d by Andie Mcintyre MD at 04:51 Sign Out Commen t: Still waitin g for placem ent for SI is [facility], no issues during shift Last update d by Wanda Ricrado MD at 15:42 Discha rge Plan Discha rge Detail s Chief Compla int: PsychE nichelle Primar y Care Provid er: Manisha Ellis ED Provid er: Wanda Ricardo Home Meds and New Rx's Prescr iption s: No Action naprox en 250 mg tablet 500 mg PO BID PRN Hold Instru ctions : Hold until PCP f/u clonaz epam 1 mg tablet 1 mg PO BID PRN melato jerry 10 mg tablet 10 mg PO HS PRN lorata dine 10 mg capsul e 10 mg PO DAILY buprop ion HCl [Wellb utrin SR] 150 mg tablet sustai ene-re lease 12 hr 150 mg PO BID cholec alcife rol (vitam in D3) 50 mcg (2,000 unit) capsul e 50 mcg PO DAILY metfor min 500 mg tablet extend ed releas e 24 hr 1,000 mg PO BID Trulic ity 1.5 mg/0.5 mL pen inject or 3 mg subcut QWEEK Hold Instru ctions : Until f/u with PCP or if blood glucos e levels begin to rise Rx Instru ctions : - on ays rosuva statin [Crest or] 5 MG tablet 10 mg PO QPM naratr iptan 2.5 mg tablet 2.5 mg PO BID PRN ribofl liliam (vitam in B2) [Vitam in B-2] 50 MG tablet 200 mg PO BID polyet hylene glycol 3350 17 gram/d ose Powder 17 g PO DAILY PRN cyanoc obalam in (vitam in B-12) 1,000 mcg tablet 1,000 mcg PO DAILY Pati t Comm ts: TAKE ONE TABLET BY MOUTH EVERY DAY duloxe sonny 30 mg capsul e,karina lenad releas e(DR/E C) 30 mg PO DAILY Patien t Comm ts: Take 1 capsul e by mouth once a day to replac e paxil which she will wean off icosap ent ethyl [Vasce pa] 1 gram capsul e 2 g PO BID Pati Comm ts: TAKE TWO CAPSUL ES BY MOUTH TWICE A DAY Farxig a 5 mg tablet 5 mg PO DAILY Pati ts: Take 1 tablet by mouth once a day hydrom orphon e 2 mg tablet 4 mg PO BID Pati ts: TAKE TWO TABLET S BY MOUTH TWICE A DAY Entres to 97-103 mg tablet 1 tab PO BID Hold Instru ctions : Hold until PCP f/u or if SBP is consis tently > 120 mmHg Pati Comm ts: TAKE ONE TABLET BY MOUTH TWICE A DAY pregab deonna 100 mg capsul e 100 mg PO TID Pati ts: Take 1 capsul e by mouth three times a day metopr olol tartra te 25 mg Tablet 12.5 mg PO BID Qty: 0 0RF magnes ium oxide 400 MG tablet 400 mg PO HS Qty: 0 0RF levoth yroxin e [Synth roid] 25 MCG tablet 50 mcg PO HS omepra zole 20 mg Capsul e,Karina lenad Releas e(Dr/E c) 20 mg PO DAILY prochl orpera zine maleat e 10 mg Tablet 10 mg PO DAILY PRN (Reaso n: Headac he) albute rol sulfat e [Alvaro janet HFA] 90 mcg/ac tuatio n Hfa Aeroso l Inhale r 2 puff INHALA TION QID PRN naloxo ne [Narca n] 4 mg/act uation Camak, Non-Ae rosol 1 spray INTRAN NEELA ONCE PRN Pati ts: Never used. valacy clovir 1 gram tablet 500 mg PO QHS aspiri n 81 mg tablet ,delay ed releas e (DR/EC ) 81 mg PO DAILY Qty: 14 0RF Rx Instru ctions : Take 1 daily with a meal for 30 days estrad iol 1 mg tablet See Rx Instru ctions .ROUTE .COMPL EX Surendra olmedo Commstephanie ts: TAKE 1 TABLET BY MOUTH EVERY MORNIN G THEN 2 TABLET S EVERY EVENIN G Rx Instru ctions : --> 1mg qAM and 1.5m,g qPM hydroc ortiso ne 2.5 % cream 1 applic topica l QID Qty: 30 6RF acetam inophe n 500 mg capsul e 1,000 mg PO Q8H PRN PRNQty : 30 0RF lamotr igine [Lamic karla] 100 mg tablet 150 mg PO HS Patistephanie olmedo Commen ts: TAKE 1 TABLET BY MOUTH EVERY DAY buprop ion HCl 150 mg tablet extend ed releas e 24 hr 150 mg PO BID Patistephanie olmedo Commstephanie ts: TAKE ONE TABLET BY MOUTH TWICE A DAY WITH MEALS cc: MANISHA ELLIS MD ------ ------ ------ ------ ------ ------ ------ ------ ------ ------ ------ --- Dictat ed by: WANDA RICARDO MD Dictat ed: Time: 230 0 Date: 2300 Date: Date: Transc ribed Date: Transc ribed Time: 2299 By: EFLICITAS This is privil eged, confid ential inform ation, intend ed only for the provid er named. Any use or distri bution by any person other than this provid er is strict ly prohib ited. If you receiv e this report in error, please notify us immedi ately at [phone] and return the origin al report to us at the addres s above. Thank you. [facility] [address] [facility] [place], [address] 01/12/2024 19:02:30 01/12/20 24 01/11/2024 ED progr ess note ED Progre ss Note PATISTEPHANIE Olmedo NAME: Zayda Andrea #: [id number] ADMITT ING PROVID ER: Wanda Ricardo M.D. ACCOUN T #: [id number] PRIMAR Y CARE PROVID ER: MANISHA ELLIS MD DATE OF ADMIT: : 1974 Addend a See separa te note Addend um dictat ed by Cisco French M.D. [id number] Transc ribed By: Cisco French 838 Cosign ed by Date of servic e: Time of Servic e: 23:01 Medica l Decisi on Making Patien t still seekin g [facility] placem ent for depres gladis and SI, report ed issues during prior shift and curren tly calm and izaiah ative. No acute compla ints. Will contin ue to monito r until safe dispos ition found Qualit y:SDOH Health Relate d Social Needs: No Data to Displa y Sign Out Sign Out Data: Sign Out Commen t: Care signed out to Dr. Jeremiah Metz no, please see my docume ntatio n regard ing initia l ED presen tation and course . Plan at signou t is to contin ue to monito r until inpati ent treatm ent can be identi fied. Psychi atric consul t pendin g. Patien t is bringi ng in her home medica tions that we do not have these in [facility]. Other home medica tions have been ordere d. Last update d by Cisco French MD at 17:16 Sign Out Commen t: Still waitin g for placem ent for SI is [facility], no issues during shift Ordere d her home tripta n medica tion for [facility] Last update d by Frankie Pelaez i, MD at 21:36 Sign Out Commen t: 48F, SI, [facility], medica lly cleare d, pendin g placem ent. Last update d by Andie Mcintyre MD at 06:12 Sign Out Commen t: No active behavi oral issues last shift. Contin ues to be [facility] medica lly cleare d in the settin g of suicid al ideati on. Last update d by Prudencio Babcock MD at 17:12 Sign Out Commen t: No active behavi oral issues during my shift pendin g [facility] placem ent for SI medica lly cleare d Last update d by Frankie Pelaez i, MD at 22:37 Sign Out Commen t: depres gladis, SI, awaiti ng placem ent Last update d by Shelli Pratt MD at 22:49 Sign Out Commen t: 48yo F, SI, medica lly cleare d, home meds in, pendin g [facility] plac[facility] ent. Last update d by Andie Mcintyre MD at 06:53 Sign Out Commen t: pendin g [facility] placem ent for SI/dep ressio n, stable during shift Last update d by Wanda Ricardo MD at 16:14 Sign Out Commen t: Medica lly cleare d [facility] patien t with suicid al ideati on. No active behavi oral issues last shift. Last update d by Prudencio Babcock MD at 21:56 Sign Out Commen t: [facility] for SI/dep ressio n, pendin g placem ent, no issues during shift Last update d by Wanda Ricardo MD at 09:34 Sign Out Commen t: [facility] for SI/dep ressio n, pendin g placem ent, no issues during shift Last update d by Frankie Pelaez i, MD at 22:31 Sign Out Commen t: [facility] SI, pendin g placem ent, no behavi oral issues overni ght Last update d by Andie Mcintyre MD at 04:51 Sign Out Commen t: Still waitin g for placem ent for SI is [facility], no issues during shift Last update d by Wanda Ricardo MD at 15:42 Discha rge Plan Discha rge Detail s Chief Compla int: PsychE nichelle Primar y Care Provid er: Manisha Ellis ED Provid er: Wanda Ricardo Home Meds and New Rx's Prescr iption s: No Action naprox en 250 mg tablet 500 mg PO BID PRN Hold Instru ctions : Hold until PCP f/u clonaz epam 1 mg tablet 1 mg PO BID PRN melato jerry 10 mg tablet 10 mg PO HS PRN lorata dine 10 mg capsul e 10 mg PO DAILY buprop ion HCl [Wellb utrin SR] 150 mg tablet sustai ene-re lease 12 hr 150 mg PO BID cholec alcife rol (vitam in D3) 50 mcg (2,000 unit) capsul e 50 mcg PO DAILY metfor min 500 mg tablet extend ed releas e 24 hr 1,000 mg PO BID Trulic ity 1.5 mg/0.5 mL pen inject or 3 mg subcut QWEEK Hold Instru ctions : Until f/u with PCP or if blood glucos e levels begin to rise Rx Instru ctions : - on Thursd ays rosuva statin [Crest or] 5 MG tablet 10 mg PO QPM naratr iptan 2.5 mg tablet 2.5 mg PO BID PRN ribofl liliam (vitam in B2) [Vitam in B-2] 50 MG tablet 200 mg PO BID polyet hylene glycol 3350 17 gram/d ose Powder 17 g PO DAILY PRN cyanoc obalam in (vitam in B-12) 1,000 mcg tablet 1,000 mcg PO DAILY Patien t Commen ts: TAKE ONE TABLET BY MOUTH EVERY DAY duloxe sonny 30 mg capsul e,karina yed releas e(DR/E C) 30 mg PO DAILY Patien t Commen ts: Take 1 capsul e by mouth once a day to replac e paxil which she will wean off icosap ent ethyl [Mariece pa] 1 gram capsul e 2 g PO BID Patien t Commen ts: TAKE TWO CAPSUL ES BY MOUTH TWICE A DAY Farxig a 5 mg tablet 5 mg PO DAILY Patien t Commen ts: Take 1 tablet by mouth once a day hydrom orphon e 2 mg tablet 4 mg PO BID Patien t Commen ts: TAKE TWO TABLET S BY MOUTH TWICE A DAY Entres to 97-103 mg tablet 1 tab PO BID Hold Instru ctions : Hold until PCP f/u or if SBP is consis tently > 120 mmHg Patien t Commen ts: TAKE ONE TABLET BY MOUTH TWICE A DAY pregab deonna 100 mg capsul e 100 mg PO TID Patien t Commen ts: Take 1 capsul e by mouth three times a day metopr olol tartra te 25 mg Tablet 12.5 mg PO BID Qty: 0 0RF magnes ium oxide 400 MG tablet 400 mg PO HS Qty: 0 0RF levoth yroxin e [Synth roid] 25 MCG tablet 50 mcg PO HS omepra zole 20 mg Capsul e,Karina yed Releas e(Dr/E c) 20 mg PO DAILY prochl orpera zine maleat e 10 mg Tablet 10 mg PO DAILY PRN (Reaso n: Headac he) albute rol sulfat e [Alvaro janet HFA] 90 mcg/ac tuatio n Hfa Aeroso l Inhale r 2 puff INHALA TION QID PRN naloxo ne [Narca n] 4 mg/act uation [place], Non-Ae rosol 1 spray INTRAN NEELA ONCE PRN Patien t Commen ts: Never used. valacy clovir 1 gram tablet 500 mg PO QHS aspiri n 81 mg tablet ,delay ed releas e (DR/EC ) 81 mg PO DAILY Qty: 14 0RF Rx Instru ctions : Take 1 daily with a meal for 30 days estrad iol 1 mg tablet See Rx Instru ctions .ROUTE .COMPL EX Patien t Commen ts: TAKE 1 TABLET BY MOUTH EVERY MORNIN G THEN 2 TABLET S EVERY EVENIN G Rx Instru ctions : --> 1mg qAM and 1.5m,g qPM hydroc ortiso ne 2.5 % cream 1 applic topica l QID Qty: 30 6RF acetam inophe n 500 mg capsul e 1,000 mg PO Q8H PRN PRNQty : 30 0RF lamotr igine [Lamic karla] 100 mg tablet 150 mg PO HS Patien t Commen ts: TAKE 1 TABLET BY MOUTH EVERY DAY buprop ion HCl 150 mg tablet extend ed releas e 24 hr 150 mg PO BID Patien t Commen ts: TAKE ONE TABLET BY MOUTH TWICE A DAY WITH MEALS cc: MANISHA ELLIS MD ------ ------ ------ ------ ------ ------ ------ ------ ------ ------ ------ --- Dictat ed by: BRADEN GROVER, WANDA Suarez Dictat ed: Time: 230 0 Date: 2300 Date: Date: Transc ribed Date: Transc ribed Time: 2299 By: FELICITAS This is privil eged, confid ential inform ation, intend ed only for the provid er named. Any use or distri bution by any person other than this provid er is strict ly prohib ited. If you receiv e this report in error, please notify us immedi russly at [phone] and return the origin al report to us at the addres s above. Thank you. [facility] [address], [place], [address] 01/12/2024 19:02:30 01/12/20 24 01/12/2024 psych iatri c consu ltati on PSYCHI ATRIC CONSUL TATION SURENDRA Olmedo NAME: Naya Andrea UNIT #: [id number] ADMITT ING PROVID ER: Lynne valerio,Nicholas ole DO ACCOUN T #: [id number] PRIMAR Y CARE PROVID ER: MANISHA ELLIS MD DATE OF ADMIT: : 1974 Date of servic e: Time of Servic e: 15:04 Summar y Note Psychi atry phone note Receiv ed teleps ychiat ry consul t for this surendra olmedo, review ed chart and discus sed clinic al inform ation with CHARLY Delong . Battery Inspector and site joined video paulino yee but unfort unatel y only audio compon ent is workin g. Staff member Xochilt Ennis assist ed in troubl eshoot ing but unable to get video portio n to work at this time. Theref ore, consul t will be postpo ene until techni karin issue resolv ed. Staff to please [facility] access center when consul t can procee d. cc: Nicholas Lew MD, DANA ------ ------ ------ ------ ------ ------ ------ ------ ------ ------ ------ --- Dictat ed by: Nicholas Lew DO Dictat ed: Time: 15 05 Date: 1506 Date: Date: Transc ribed Date: Transc ribed Time: 1504 By: APURVA This is privil eged, confid ential inform ation, intend ed only for the provid er named. Any use or distri bution by any person other than this provid er is strict ly prohib ited. If you receiv e this report in error, please notify us immedi russly at and return the origin al report to us at the addres s above. Thank you. [facility] [address], [place], [address] 01/12/2024 19:02:30 01/12/20 24 01/12/2024 psych iatri c consu ltati on PSYCHI ATRIC CONSUL KALEN Olmedo NAME: Naya Andrea UNIT #: [id number] ADMITT ING PROVID ER: Nicholas Lew DO ACCOUN T #: [id number] PRIMAR Y CARE PROVID ER: MANISHA ELLIS MD DATE OF ADMIT: : 1974 Date of servic e: Time of Servic e: 16:29 Summar y Note Psychi atry phone note Battery Inspector was inform ed that the techni karin issue had hopefu lly been resolv ed. Spoke with staff member shelli gay and Xochilt, multip le additi onal attemp ts were made to join paulino yee but unfort unatel y techni karin issues persis t. Xochilt report s that the issue cannot be fixed at the presen t time. Staff has reques salty for case to remain in delaye d status as oneil panda ts are made to yvonne e [facility]. Staff to please [facility] access center with update s. cc: Nicholas Lew MD, DANA ------ ------ ------ ------ ------ ------ ------ ------ ------ ------ ------ --- Dictat ed by: Nicholas Lew DO Dictat ed: Time: Date: 1633 Date: Date: Transc ribed Date: Transc ribed Time: 1632 By: APURVA This is privil eged, confid ential inform ation, intend ed only for the provid er named. Any use or distri bution by any person other than this provid er is strict ly prohib ited. If you receiv e this report in error, please notify us immedi ately at and return the origin al report to us at the addres s above. Thank you. [facility] [address], [place], [address] 01/12/2024 19:02:31 01/12/20 24 01/12/2024 care manag ement safet y plan Care Manage ment Safety Plan SURENDRA Olmedo NAME: Naya Andrea UNIT #: [id number] ADMITT ING PROVID ER: Chemo Louis ACCOUN T #: [id number] PRIMAR Y CARE PROVID ER: MANISHA ELLIS MD DATE OF ADMIT: : 1974 Care Manage ment Safety Plan Status Status : Volunt verona Reason for Wait Reason for Wait: Inpati ent Admiss ion Safety Plan Safety Plan: VOL[place]T [place] FOR INPATI ENT PSYCHI ATRIC STABIL IZATIO N.??? Surendra olmedo is approp riate in all intera ctions since arrivchai bruce at [facility]; Pt has demons jessica approp riate coping and commun icatio n skills , has articu lated his or her needs and concer ns and is fully engage d during staff intera ctions . Safety plan has been establ ished with surendra olmedo, and care team, to adhere to patien t goals, identi fy restri ctions based on behavi oral status , addres s nutrit ion, and determ ine allowe d person al belong ings, tools for hygien e and person al care. Determ ine level of activi ty includ ing ambula tion, level of superv ision, visito rs, and determ ine privil eges based on behavi ors and level of engage ment by pt. SAFETY PLAN: 1. Will remain on suicid e precau tions, in paper clothe s 2. 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 3. May have paper cups, plates , finger foods as well as a cardbo tesfaye spoon with which to eat meals. 4. Follow [facility] Manage ment of the Admitt ed Behavi oral Health Patien t policy . 5. Shower availa ble in Zone B withou t restri ction. 6. Person al belong ings-s oft items permit salty at RN discre tion. 7. Visito rs-santhosh roblesy may visit at nursin 's discre tion 8. Activi ties: soft cart items approv ed per RN discre tion. 9.??? Bathro om availa ble in Zone B withou t restri ction. 10. Phone: limite d to [facility] nenita ss phone at RN discre tion. Due to VOLUNT [place] status , if surendra olmedo wishes to leave [facility], staff will contac t [facility] Crisis Screen er ([phone]) and On-Karin l Care Manage r ([phone]) as soon as possib le. In the event of elopem ent, notify Adiel olmedo [employer] ([phone]). Surendra olmedo is curren tly volunt arily at [facility] a bed become s availa ble. [facility] Frontl ine [facility] [place] will contin gumaro flores ent. Please contac t the Check Examiner Care Manage r ([phone]) and [facility] [place] ([phone]) for any needed change s in the Safety Plan. Safety plan has been provid ed to [facility] ental care team. cc: ------ ------ ------ ------ ------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 ordere d. Last update d by Cisco French MD at 17:16 Sign Out Commen t: Still waitin g for placem ent for SI is volunt verona, no issues during shift Ordere d her home tripta n medica tion for [facility] Last update d by Frankie Pelaez i, MD at 21:36 Sign Out Commen t: 48F, SI, volunt verona, medica lly cleare d, pendin g placem ent. Last update d by Andie Mcintyre MD at 06:12 Sign Out Commen t: No active behavi oral issues last shift. Contin ues to be volunt verona medica lly cleare d in the settin g of suicid al ideati on. Last update d by Prudencio Babcock MD at 17:12 Sign Out Commen t: No active behavi oral issues during my shift pendin g volunt verona placem ent for SI medica lly cleare d Last update d by Frankie Pelaez i, MD at 22:37 Sign Out Commen t: Patien t seekin g volunt verona placem ent for depres gladis and SI Last update d by Wanda Ricardo MD at 23:04 Sign Out Commen t: Patien t here seekin g volunt verona placem ent for depres gladis and SI. No update on inpati ent bed availa bility . Last update d by Cisco French MD at 20:37 Sign Out Commen t: depres gladis, SI, awaiti ng placem ent Last update d by Shelli Pratt MD at 22:49 Sign Out Commen t: 48yo F, SI, medica lly cleare d, home meds in, pendin g volunt verona placem ent. Last update d by Andie Mcintyre MD at 06:53 Sign Out Commen t: pendin g [facility] verona placem ent for SI/dep ressio n, stable during shift Last update d by Wanda Ricardo MD at 16:14 Sign Out Commen t: Medica lly cleare d volunt verona patien t with suicid al ideati on. No active behavi oral issues last shift. Last update d by Prudencio Babcock MD at 21:56 Sign Out Commen t: volunt verona for SI/dep ressio n, pendin g placem ent, no issues during shift Last update d by Wanda Ricardo MD at 09:34 Sign Out Commen t: volunt verona for SI/dep ressio n, pendin g placem ent, no issues during shift Last update d by Frankie Pelaez i, MD at 22:31 Sign Out Commen t: volunt verona SI, pendin g placem ent, no behavi oral issues overni ght Last update d by Andie Mcintyre MD at 04:51 Sign Out Commen t: Still waitin g for placem ent for SI is volunt verona, no issues during shift Last update d by Wnada Ricardo MD at 15:42 Discha rge Plan Discha rge Detail s Chief Compla int: PsychE nichelle Primar y Care Provid er: Manisha Ellis ED Provid er: Prudencio Babcock Home Meds and New Rx's Prescr iption s: No Action naprox en 250 mg tablet 500 mg PO BID PRN Hold Instru ctions : Hold until PCP f/u clonaz epam 1 mg tablet 1 mg PO BID PRN melato jerry 10 mg tablet 10 mg PO HS PRN lorata dine 10 mg capsul e 10 mg PO DAILY buprop ion HCl [Wellb utrin SR] 150 mg tablet sustai ene-re lease 12 hr 150 mg PO BID cholec alcife rol (vitam in D3) 50 mcg (2,000 unit) capsul e 50 mcg PO DAILY metfor min 500 mg tablet extend ed releas e 24 hr 1,000 mg PO BID Trulic ity 1.5 mg/0.5 mL pen inject or 3 mg subcut QWEEK Hold Instru ctions : Until f/u with PCP or if blood glucos e levels begin to rise Rx Instru ctions : - on ursd ays rosuva statin [Crest or] 5 MG tablet 10 mg PO QPM naratr iptan 2.5 mg tablet 2.5 mg PO BID PRN ribofl liliam (vitam in B2) [Vitam in B-2] 50 MG tablet 200 mg PO BID polyet hylene glycol 3350 17 gram/d ose Powder 17 g PO DAILY PRN cyanoc obalam in (vitam in B-12) 1,000 mcg tablet 1,000 mcg PO DAILY Patien t Commen ts: TAKE ONE TABLET BY MOUTH EVERY DAY duloxe sonny 30 mg capsul e,karina yed releas e(DR/E C) 30 mg PO DAILY Patien t Commen ts: Take 1 capsul e by mouth once a day to replac e paxil which she will wean off icosap ent ethyl [Herlinda pa] 1 gram capsul e 2 g PO BID Patien t Commen ts: TAKE TWO CAPSUL ES BY MOUTH TWICE A DAY Farxig a 5 mg tablet 5 mg PO DAILY Patien t Commen ts: Take 1 tablet by mouth once a day hydrom orphon e 2 mg tablet 4 mg PO BID Patien t Commen ts: TAKE TWO TABLET S BY MOUTH TWICE A DAY Entres to 97-103 mg tablet 1 tab PO BID Hold Instru ctions : Hold until PCP f/u or if SBP is consis tently > 120 mmHg Patien t Commen ts: TAKE ONE TABLET BY MOUTH TWICE A DAY pregab deonna 100 mg capsul e 100 mg PO TID Patien t Commen ts: Take 1 capsul e by mouth three times a day metopr olol tartra te 25 mg Tablet 12.5 mg PO BID Qty: 0 0RF magnes ium oxide 400 MG tablet 400 mg PO HS Qty: 0 0RF levoth yroxin e [Synth roid] 25 MCG tablet 50 mcg PO HS omepra zole 20 mg Capsul e,Karina yed Releas e(Dr/E c) 20 mg PO DAILY prochl orpera zine maleat e 10 mg Tablet 10 mg PO DAILY PRN (Reaso n: Headac he) albute rol sulfat e [Alvaro janet HFA] 90 mcg/ac tuatio n Hfa Aeroso l Inhale r 2 puff INHALA TION QID PRN naloxo ne [Narca n] 4 mg/act uation Camak, Non-Ae rosol 1 spray INTRAN NEELA ONCE PRN Patien t Comm ts: Never used. valacy clovir 1 gram tablet 500 mg PO QHS aspiri n 81 mg tablet ,delay ed releas e (DR/EC ) 81 mg PO DAILY Qty: 14 0RF Rx Instru ctions : Take 1 daily with a meal for 30 days estrad iol 1 mg tablet See Rx Instru ctions .ROUTE .COMPL EX Patien t Comm ts: TAKE 1 TABLET BY MOUTH EVERY MORNIN G THEN 2 TABLET S EVERY EVENIN G Rx Instru ctions : --> 1mg qAM and 1.5m,g qPM hydroc ortiso ne 2.5 % cream 1 applic topica l QID Qty: 30 6RF acetam inophe n 500 mg capsul e 1,000 mg PO Q8H PRN PRNQty : 30 0RF lamotr igine [Lamic karla] 100 mg tablet 150 mg PO HS Patien t ts: TAKE 1 TABLET BY MOUTH EVERY DAY buprop ion HCl 150 mg tablet extend ed releas e 24 hr 150 mg PO BID Pati t ts: TAKE ONE TABLET BY MOUTH TWICE A DAY WITH MEALS cc: CIRILO GROVER, MANISHA ------ ------ ------ ------ ------ ------ ------ ------ ------ ------ ------ --- Dictat ed by: Prudencio Babcock M.D. Dictat ed: Time: 084 4 Date: 1611 Date: Date: Transc rib Date: Transc ribed Time: 0844 By: RUDY This is privil eged, confid ential inform ation, intend ed only for the provid er named. Any use or distri bution by any person other than this provid er is strict ly prohib ited. If you receiv e this report in error, please notify us immedi russly at and return the origin al report to us at the addres s above. Thank you. [facility] [address], [place], [address] 01/13/2024 17:29:32 01/13/20 24 01/13/2024 menta l healt h progr ess note MENTAL HEALTH PROGRE SS NOTE SURENDRA Olmedo NAME: Naya Andrea UNIT #: [id number] ADMITT ING PROVID ER: Zoila Paez ACCJAMISON T #: [id number] PRIMAR Y CARE PROVID ER: MANISHA ELLIS MD DATE OF ADMIT: : 1974 Date of servic e: Time of Servic e: 14:32 Mental Health Emerge ncy Note Releas e [facility] releas e signed :: Yes Reason for Visit Client ady pond into [facility] due to SI on 01.07.2 4 [facility]. [facility], she believ ed that she receiv ed all the servic es that she needed . The client was reasse ssed today while at [facility] due to suicid al ideati on which she is denied experi encing liz pulido, report ed that if she were to return home she would rate her risk a 3/10. She still endors ed I wish I was not here but denied active intent or plan. In the last 2 weeks has the pt presstephanie pond for ES prior to today? : Yes, ady pond at [facility] ED Impres gladis The client is sittin g on her bed quietl y and starin g at the wall. She made good eye contac t when this clinic ketan entere d the room. She report ed that she is not feelin g well and noted that her stomac h was hurtin g some and wonder ed if it was relate d to her anxiet y. She noted that she is still not having SI at the time as she is in a safe place and rates her risk level at a 4/10. She noted she is sleepi ng okay and that her appeti te is slight ly less today due to her stomac h sam yee.The client identi quin as a divorc ed, Caucas ketan hetero sexual female who is a single mother . She still yolanda pulido, lives with her ex-hus band who is presen t during the assess ment and suppor tive. All underr eprese nted catego cherry are respec salty during her assess ment. Plan/D isposi tion Recomm ended Dispos ition: Hospit alizat ion facili ties contac salty. Plan: The client accept ed to [facility]. Client was transp orted at 1300 hours via the cathie f. Person report ed agreem ent to plan: Yes Report s/comm unicat ion Outcom e discus sed with: ED/Per robert cc: ------ ------ ------ ------ ------ ------ ------ ------ ------ ------ ------ --- Dictat ed by: ESTHER Rodriguez MS QMHP,R OSE Dictat ed: Time: 143 Date: 1854 Date: Date: Transc ribed Date: Transc ribed Time: 1431 By: TONYA This is privil eged, confid ential inform ation, intend ed only for the provid er named. Any use or distri bution by any person other than this provid er is strict ly prohib ited. If you receiv e this report in error, please notify us immedi ately at [phone] and return the origin al report to us at the addres s above. Thank you. [place] [id number] , [place], [address] 01/14/2024 16:09:29 01/14/20 24 01/13/2024 ED progr ess note ED Progre ss Note PATIEN T NAME: Naya Andrea UNIT #: [id number] ADMITT ING PROVID ER: Shweta Salamanca M.D. ACCOUN T #: [id number] PRIMAR Y CARE PROVID ER: MANISHA ELLIS MD DATE OF ADMIT: : 1974 Date of servic e: Time of Servic e: 20:00 Medica l Decisi on Making Qualit y:SDOH Health Relate d Social Needs: No Data to Displa y Narrat viviana This is a 48-yea r-old female who is awaiti ng volunt verona placem ent for suicid al ideati on. I have receiv ed signou t. 4 at 3:21 AM the patien honorio is awake and going to the [facility]. She has no compla ints. Sign Out Sign Out Data: Sign Out Commen t: Care signed out to Dr. Jeremiah Metz no, please see my docume ntatio n regard ing initia l ED presen tation and course . Plan at signou t is to contin ue to monito r until inpati ent treatm ent can be identi fied. Psychi atric consul t pendin g. Surendra olmedo is bringi ng in her home medica tions that we do not have these in [facility]. Other home medica tions have been ordere d. Last update d by Cisco French MD at 17:16 Sign Out Commen t: Still waitin g for placem ent for SI is volunt verona, no issues during shift Ordere d her home tripta n medica tion for [facility] Last update d by Frankie Pealez i, MD at 21:36 Sign Out Commen t: 48F, SI, volunt verona, medica lly cleare d, pendin g placem ent. Last update d by Andie Mcintyre MD at 06:12 Sign Out Commen t: No active behavi oral issues last shift. Contin ues to be volunt verona medica lly cleare d in the settin g of suicid al ideati on. Last update d by Prudencio Babcock MD at 17:12 Sign Out Commen t: No active behavi oral issues during my shift pendin g volunt verona placem ent for SI medica lly cleare d Last update d by Frankie Pelaez i, MD at 22:37 Sign Out Commen t: Patien t seekin g volunt verona placem ent for depres gladis and SI Last update d by Wanda Ricardo MD at 23:04 Sign Out Commen t: Patien t here seekin g volunt verona placem ent for depres gladis and SI. No update on inpati ent bed availa bility . Last update d by Cisco French MD at 20:37 Sign Out Commen t: depres gladis, SI, awaiti ng placem ent Last update d by Shelli Pratt MD at 22:49 Sign Out Commen t: 48yo F, SI, medica lly cleare d, home meds in, pendin g volunt verona placem ent. Last update d by Andie Mcintyre MD at 06:53 Sign Out Commen t: pendin g volunt verona placem ent for SI/dep ressio n, stable during shift Last update d by Wanda Ricardo MD at 16:14 Sign Out Commen t: Medica lly cleare d volunt verona patien t with suicid al ideati on. No active behavi oral issues last shift. Last update d by Prudencio Babcock MD at 21:56 Sign Out Commen t: volunt verona for SI/dep ressio n, pendin g placem ent, no issues during shift Last update d by Wanda Ricardo MD at 09:34 Sign Out Commen t: volunt verona for SI/dep ressio n, pendin g placem ent, no issues during shift Last update d by Frankie Pelaez i, MD at 22:31 Sign Out Commen t: volunt verona SI, pendin g placem ent, no behavi oral issues overni ght Last update d by Andie Mcintyre MD at 04:51 Sign Out Commen t: Still waitin g for placem ent for SI is volunt verona, no issues during shift Last update d by Wanda Ricardo MD at 15:42 Discha rge Plan Discha rge Detail s Chief Compla int: PsychE nichelle Primar y Care Provid er: Manisha Ellis ED Provid er: Shweta Salamanca Home Meds and New Rx's Prescr iption s: No Action naprox en 250 mg tablet 500 mg PO BID PRN Hold Instru ctions : Hold until PCP f/u clonaz epam 1 mg tablet 1 mg PO BID PRN melato jerry 10 mg tablet 10 mg PO HS PRN lorata dine 10 mg capsul e 10 mg PO DAILY buprop ion HCl [Wellb utrin SR] 150 mg tablet sustai ene-re lease 12 hr 150 mg PO BID cholec alcife rol (vitam in D3) 50 mcg (2,000 unit) capsul e 50 mcg PO DAILY metfor min 500 mg tablet extend ed releas e 24 hr 1,000 mg PO BID Trulic ity 1.5 mg/0.5 mL pen inject or 3 mg subcut QWEEK Hold Instru ctions : Until f/u with PCP or if blood glucos e levels begin to rise Rx Instru ctions : - on ays rosuva statin [Crest or] 5 MG tablet 10 mg PO QPM naratr iptan 2.5 mg tablet 2.5 mg PO BID PRN ribofl liliam (vitam in B2) [Vitam in B-2] 50 MG tablet 200 mg PO BID polyet hylene glycol 3350 17 gram/d ose Powder 17 g PO DAILY PRN cyanoc obalam in (vitam in B-12) 1,000 mcg tablet 1,000 mcg PO DAILY Patien t Commen ts: TAKE ONE TABLET BY MOUTH EVERY DAY duloxe sonny 30 mg capsul e,karina yed releas e(DR/E C) 30 mg PO DAILY Patien t Commen ts: Take 1 capsul e by mouth once a day to replac e paxil which she will wean off icosap ent ethyl [Vasce pa] 1 gram capsul e 2 g PO BID Pati t ts: TAKE TWO CAPSUL ES BY MOUTH TWICE A DAY Farxig a 5 mg tablet 5 mg PO DAILY Pati ts: Take 1 tablet by mouth once a day hydrom orphon e 2 mg tablet 4 mg PO BID Pati t ts: TAKE TWO TABLET S BY MOUTH TWICE A DAY Entres to 97-103 mg tablet 1 tab PO BID Hold Instru ctions : Hold until PCP f/u or if SBP is consis tently > 120 mmHg Pati ts: TAKE ONE TABLET BY MOUTH TWICE A DAY pregab deonna 100 mg capsul e 100 mg PO TID Pati ts: Take 1 capsul e by mouth three times a day metopr olol tartra te 25 mg Tablet 12.5 mg PO BID Qty: 0 0RF magnes ium oxide 400 MG tablet 400 mg PO HS Qty: 0 0RF levoth yroxin e [Synth roid] 25 MCG tablet 50 mcg PO HS omepra zole 20 mg Capsul e,Karina yed Releas e(Dr/E c) 20 mg PO DAILY prochl orpera zine maleat e 10 mg Tablet 10 mg PO DAILY PRN (Reaso n: Headac he) albute rol sulfat e [Alvaro janet HFA] 90 mcg/ac tuatio n Hfa Aeroso l Inhale r 2 puff INHALA TION QID PRN naloxo ne [Narca n] 4 mg/act uation Camak, Non-Ae rosol 1 spray INTRAN NEELA ONCE PRN ts: Never used. valacy clovir 1 gram tablet 500 mg PO QHS aspiri n 81 mg tablet ,delay ed releas e (DR/EC ) 81 mg PO DAILY Qty: 14 0RF Rx Instru ctions : Take 1 daily with a meal for 30 days estrad iol 1 mg tablet See Rx Instru ctions .ROUTE .COMPL EX Pati ts: TAKE 1 TABLET BY MOUTH EVERY MORNIN G THEN 2 TABLET S EVERY EVENIN G Rx Instru ctions : --> 1mg qAM and 1.5m,g qPM hydroc ortiso ne 2.5 % cream 1 applic topica l QID Qty: 30 6RF acetam inophe n 500 mg capsul e 1,000 mg PO Q8H PRN PRNQty : 30 0RF lamotr igine [Lamic karla] 100 mg tablet 150 mg PO HS Patien t Commen ts: TAKE 1 TABLET BY MOUTH EVERY DAY buprop ion HCl 150 mg tablet extend ed releas e 24 hr 150 mg PO BID Patien t Commen ts: TAKE ONE TABLET BY MOUTH TWICE A DAY WITH MEALS cc: MANISHA ELLIS MD ------ ------ ------ ------ ------ ------ ------ ------ ------ ------ ------ --- Dictat ed by: Shweta Salamanca M.D. Dictat ed: Hosea e: 326 Date: 1 509 Date: Date: Transc ribed Date: Transc ribed Time: 326 By: BLANCA This is privil eged, confid ential inform ation, intend ed only for the provid er named. Any use or distri bution by any person other than this provid er is strict ly prohib ited. If you receiv e this report in error, please notify us immleela bernardo at and return the origin al report to us at the addres s above. Thank you. [facility] [address] [facility] , [place], [address] 01/14/2024 16:09:29 01/15/20 24 01/14/2024 rhyth m strip , EKG* No observ ation record ed. [email or web address] [facility] [address] [place], [address], 01/15/2024 11:50:15 01/22/20 24 01/13/2024 rhyth m strip , EKG* No observ ation record ed. [email or web address] [facility] [address] [place], [address], 01/24/2024 08:02:11 Result Notes None recorded. Problems Name Status Onset Date Resolution Date Notes Provider Name and Address Organization Details Recorded Time Hyperlipidemi a Active [address], [facility] [address] , [facility] 4 17:39:18 Chronic tension-type headache Active 2005 Jessica light, [facility] 4 14:11:03 Polycystic ovary syndrome Active [address], [facility] [address] , [facility] 4 17:42:00 Recurrent major depression Active [address], [facility] [address] , [facility] 3 21:49:59 Carpal tunnel syndrome of right wrist Active [address], [facility] [address] , [facility] 3 21:56:06 Obesity Active [address], [facility] [address] , [facility] 3 21:50:41 Steatosis of liver Active 2005 FIB4 score 0.51 2017, 0.86 [address], [facility] [address] , [facility] 4 17:46:29 Type 2 diabetes mellitus without complication Active [address], [facility] [address] , [facility] 3 21:49:31 Intolerance to lactose Active [address], [facility] [address] , [facility] 4 17:40:28 Chronic pain syndrome Active 2010 MME [address], [facility] [address] , [facility] 4 17:43:50 Tachycardia Active [address], [facility] [address] , [facility] 3 21:49:45 Atheroscleros is of coronary artery without angina pectoris Active 2012 Jessica pancho light, [facility] 4 14:10:47 Discharge from nipple Completed 201406/20/2015 Problem Code: N64.52; Problem Code Type: ICD-10; Not Available [facility] 3 05:12:22 Amenorrhea Completed 201406/20/2015 05/23/2015 - Comments only - Manisha Ellis MD - and nipple discharge. Negative urine test in the office, but will check serum HCG , as well as prolactin level. Problem Code: N91.2; Problem Code Type: ICD-10; Not Available [facility] 3 05:12:23 Adult health examination Active [address], [place], [address] , [facility] 4 17:32:17 Hypothyroidis m Active [address], [facility] [address] , [facility] 3 21:51:31 Hypomagnesemi a Active [address], [facility] [address] , [facility] 3 21:51:39 Arthralgia of the ankle and/or foot Completed 201511/12/2016 Problem Code: M25.572; Problem Code Type: ICD-10; Not Available [facility] 3 05:12:23 Nausea and vomiting Completed 201604/30/2017 04/23/2017 - Comments only - Manisha Ellis MD - Heart no wet at this is simply a recurrent gastroenterit is. She is not having diarrhea, so C. difficile for Giardia and no longer likely. We will draw her blood today for CBC and CMP. Also amylase and lipase given extent of her nausea and vomiting. Problem Code: R11.2; Problem Code Type: ICD-10; Not Available [facility] 3 05:12:23 Dysuria Completed 201604/30/2017 04/23/2017 - Comments only - Manisha Ellis MD - We will check urinalysis to be sure this is not UTI/pyeloneph ritis. Problem Code: R30.0; Problem Code Type: ICD-10; Not Available [facility] 3 05:12:23 Primary amenorrhea Completed 201610/02/2017 09/25/2017 - Comments only - Manisha Ellis MD - Negative urine test here in the office. I lectured her again on the importance of using condoms, as she does not want to use any other form of control. If her menses continues to be absent, we could check serum hCG. Problem Code: N91.0; Problem Code Type: ICD-10; Not Available [facility] 3 05:12:24 Acute bronchitis Completed 201610/09/2017 09/25/2017 - Comments only - Manisha Ellis MD - She has some wheezing [...] J20.9; Problem Code Type: ICD-10; Not Available [facility] 3 05:12:24 Screening for malignant neoplasm of cervix Completed 201703/01/2018 Problem Code: Z12.4; Problem Code Type: ICD-10; Not Available [facility] 3 05:12:24 Tobacco user Active [address], [place], [address] , [facility] 3 21:49:37 Hypertrophic condition of skin Completed 201708/25/2018 08/20/2018 - Comments only - Manisha Ellis MD - Sites are consistent with silver nitrate application with slight irritation. To avoid infection I suggested applying mupirocin Problem Code: L91.8; Problem Code Type: ICD-10; Not Available [facility] 3 05:12:24 Acute bronchitis Completed 201711/08/2018 10/25/2018 - Comments only - Manisha Ellis MD - Persistent symptoms for 4 weeks, we will go ahead and start antibiotics, azithromycin given penicillin allergy Problem Code: J20.9; Problem Code Type: ICD-10; Not Available [facility] 3 05:12:24 Pain in left arm Active [address], [place], [address] , [facility] 3 21:50:31 Posttraumatic stress disorder Active [address], [place], [address] , [facility] 3 21:50:08 Fatigue Active [address], [place], [address] , [facility] 3 21:52:27 Diarrhea Completed 201901/05/2020 12/22/2019 - Comments only - Manisha Ellis MD - She has had lots [...] R19.7; Problem Code Type: ICD-10; Not Available [facility] 3 05:12:25 Herpesvirus infection Active 2019 Jessica Toussaint nadege, [facility] 4 14:11:26 Disorder of external ear Completed 201903/08/2020 Problem Code: H60.10; Problem Code Type: ICD-10; Not Available [facility] 3 05:12:25 Lumbago with sciatica Active [address], [place], [address] , [facility] 4 17:40:39 Pain of right shoulder joint Active 2021 MRI 12/[address], [place], [address] , [facility] 4 17:41:50 Dysuria Completed 202102/03/2022 01/20/2022 - Comments only - Manisha Ellis MD - and urinary incontinence, referral back to urology. Problem Code: R30.0; Problem Code Type: ICD-10; Not Available [facility] 3 05:12:26 Muscle pain Active 2021 deep muscle biopsy, awaiting results. 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 She does have known cardiomyopath y, but her last ejection fraction was good, and she has nonobstructiv e disease based on cardiac catheterizati on. She does not have any orthopnea or dyspnea or ankle edema. Problem Code: Z01.818; Problem Code Type: ICD-10; Not Available [facility] 3 05:12:27 Anxiety disorder Active [address], [address] 4 17:32:23 Seasonal allergic rhinitis Active [address], [address] 4 17:42:04 Urinary incontinence Active [address], [address] 3 21:49:24 Dyspnea Completed 202110/06/2022 Problem Code: R06.09; Problem Code Type: ICD-10; Not Available [facility] 3 05:12:28 Screening mammography Completed 202111/03/2023 Problem Code: Z12.31; Problem Code Type: ICD-10; MD Gonzalo R[address]LE Dr, [address] 3 21:49:52 Chondromalaci a of left knee Active [address], [address] 4 17:32:37 Acute vaginitis Completed 202210/06/2023 Problem Code: N76.0; Problem Code Type: ICD-10; Removal Reason: resolved MD Gonzalo R[address] Dr, [address] 3 12:54:07 Dyspnea Completed 202006/17/2021 Problem Code: R06.02; Problem Code Type: ICD-10; Not Available [facility] 3 05:12:35 Lactose intolerance Completed 200408/19/2023 Not Available [facility] 3 05:12:36 Dysthymia Completed 201705/16/2019 Problem Code: F34.1; Problem Code Type: ICD-10; Not Available [facility] 3 05:12:36 Acute upper respiratory infection Completed 201903/22/2020 Problem Code: J06.9; Problem Code Type: ICD-10; Not Available [facility] 3 05:12:38 Low back pain Completed 201610/25/2021 Problem Code: M54.5; Problem Code Type: ICD-10; Not Available [facility] 3 05:12:38 Right upper quadrant pain Completed 201607/30/2017 Problem Code: R10.11; Problem Code Type: ICD-10; Not Available [facility] 3 05:12:38 Anxiety Completed 200408/19/2023 Problem Code: F41.8; Problem Code Type: ICD-10; Not Available [facility] 3 05:12:39 Pelvic and perineal pain Completed 201810/03/2019 Problem Code: R10.2; Problem Code Type: ICD-10; Not Available [facility] 3 05:12:39 Atrial flutter Completed 202006/17/2021 Problem Code: I48.92; Problem Code Type: ICD-10; Not Available [facility] 3 05:12:39 Hyperglycemia due to type 2 diabetes mellitus Completed 200508/19/2023 12/18/2017 - Comments only - Manisha Ellis MD - check labs prior to follow up visit. Problem Code: E11.65; Problem Code Type: ICD-10; Not Available [facility] 3 05:12:40 Splenomegaly Completed 200608/19/2023 Not Available [facility] 3 05:12:40 Morbid obesity Completed 200408/19/2023 Not Available [facility] 3 05:12:40 Derangement of left knee Completed 202204/15/2023 Problem Code: M23.92; Problem Code Type: ICD-10; Not Available [facility] 3 05:12:41 Pain of left shoulder joint Completed 201805/06/2021 Problem Code: M25.512; Problem Code Type: ICD-10; Not Available [facility] 3 05:12:41 Noninflammato ry disorder of the vagina Completed 202204/20/2023 Problem Code: N89.8; Problem Code Type: ICD-10; Not Available [facility] 3 05:12:42 Pelvic and perineal pain Completed 201607/30/2017 Problem Code: R10.2; Problem Code Type: ICD-10; Not Available [facility] 3 05:12:42 Dysuria Completed 202107/09/2022 Problem Code: R30.9; Problem Code Type: ICD-10; Not Available [facility] 3 05:12:42 Polycystic ovaries Completed 200508/19/2023 Not Available [facility] 3 05:12:43 Coronary arteriosclero sis Completed 201208/19/2023 Not Available [facility] 3 05:12:43 Localized edema Completed 201607/30/2017 Problem Code: R60.0; Problem Code Type: ICD-10; Not Available [facility] 3 05:12:44 Diarrhea Completed 201604/10/2017 Problem Code: R19.7; Problem Code Type: ICD-10; Not Available [facility] 3 05:12:44 Pain of right wrist Completed 202104/15/2023 Problem Code: M25.531; Problem Code Type: ICD-10; Not Available [facility] 3 05:12:45 Nicotine dependence Completed 201708/19/2023 10/03/2019 - Comments only - Manisha Ellis MD - congratulated on quitting. Problem Code: Z87.891; Problem Code Type: ICD-10; Not Available [facility] 3 05:12:45 Headache Completed 200508/19/2023 Not Available [facility] 3 05:12:45 Cyst of ovary Completed 201607/30/2017 Problem Code: N83.20; Problem Code Type: ICD-10; Not Available [facility] 3 05:12:47 Diabetes mellitus Completed 200508/19/2023 08/08/2015 - Comments only - Manisha Ellis MD - with poor control based on hemoglobin A1c, despite significant recent weight loss. I have recommended that she increase her dose of metformin to 1000 mg twice daily. We discussed the role of checking blood sugars and initiating insulin, she is adamant that she would be unable to do so at this time. Not Available [facility] 3 05:12:48 Fatigue Completed 201508/08/2016 Problem Code: R53.83; Problem Code Type: ICD-10; MD [address]alo [address], [place], [address] , [facility] 21:52:27 Generalized anxiety disorder Completed 200408/19/2023 10/23/2017 - Comments only - Manisha Ellis MD - clonazepam is renewed for 8 weeks. Problem Code: F41.1; Problem Code Type: ICD-10; Not Available [facility] 3 05:12:49 Carpal tunnel syndrome Completed 201108/19/2023 Problem Code: 354.0; Problem Code Type: ICD-9; MD Gonzalo [address], [place], [address] , [facility] 21:56:13 Pneumocystosi s Completed 202111/06/2022 Problem Code: B59; Problem Code Type: ICD-10; Not Available [facility] 3 05:12:50 Acute pharyngitis Completed 201510/29/2016 Problem Code: J02.9; Problem Code Type: ICD-10; Not Available [facility] 3 05:12:50 Dysfunctional uterine bleeding Completed 200410/03/2019 Not Available [facility] 3 05:12:51 Active immunization Completed 201709/29/2019 Problem Code: Z23; Problem Code Type: ICD-10; Not Available [facility] 3 05:12:51 Pain of left knee joint Completed 202208/19/2023 Problem Code: M25.562; Problem Code Type: ICD-10; Not Available [facility] 3 05:12:52 Pain in right arm Completed 202108/19/2023 03/13/2022 - Comments only - Manisha Ellis MD - and right shoulder pain. [...] MRI of cervical spine. She should call [facility] neurology to see if she can be on their cancellation list. Labs were drawn today for CPK, inflammatory markers. Reminded her that smoking lowers pain threshold. Problem Code: M79.601; Problem Code Type: ICD-10; Not Available [facility] 3 05:12:53 Palpitations Completed 202104/15/2023 Problem Code: R00.2; Problem Code Type: ICD-10; Not Available [facility] 3 05:12:54 Palpitations Completed 201805/16/2019 Problem Code: R00.2; Problem Code Type: ICD-10; Not Available [facility] 3 05:12:54 Glycosuria Completed 202204/15/2023 Problem Code: R81; Problem Code Type: ICD-10; Not Available [facility] 3 05:12:55 Mixed anxiety and depressive disorder Completed 200408/19/2023 10/05/2015 - Comments only - Mnaisha Ellis MD - I reminded her that every time she avoids a situation that gives her anxiety, she increases her anxiety, and that she should continue to try exposure therapy. Not Available [facility] 3 05:12:56 Exposure to sexually transmissible disorder Completed 201406/20/2015 Problem Code: Z20.2; Problem Code Type: ICD-10; Not Available [facility] 3 05:12:57 Syncope and collapse Completed 201902/11/2021 Problem Code: R55; Problem Code Type: ICD-10; Not Available [facility] 3 05:12:57 Dyspnea Completed 201904/15/2023 Problem Code: R06.02; Problem Code Type: ICD-10; Not Available [facility] 3 05:12:58 Severe obesity Completed 200408/19/2023 08/24/2020 - Comments only - Manisha Ellis MD - She is congratulated on her recent weight loss. Problem Code: E66.01; Problem Code Type: ICD-10; Not Available [facility] 3 05:12:58 Menopause present Completed 201801/11/2020 Problem Code: N95.1; Problem Code Type: ICD-10; Not Available [facility] 3 05:12:59 Exposure to communicable disease Completed 201910/05/2020 Problem Code: Z20.828; Problem Code Type: ICD-10; Not Available [facility] 3 05:13:00 Pain of breast Completed 202104/15/2023 Problem Code: N64.4; Problem Code Type: ICD-10; Not Available [facility] 3 05:13:01 Exposure to communicable disease Completed 202111/06/2022 Problem Code: Z20.828; Problem Code Type: ICD-10; Not Available [facility] 3 05:13:02 Recurrent herpes simplex Active [address], [place], [address] , [facility] 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% in 03/[address], [facility] [address] , [facility] 4 20:14:59 Cardiac defibrillator in situ Active [address], [facility] [address] , [facility] 3 22:00:00 Localized infection of skin AND/OR subcutaneous tissue Completed 202208/28/2023 Problem Code: L08.9; Problem Code Type: ICD-10; Not Available [facility] 4 05:38:00 Injury due to suicide attempt Completed 202201/05/2024 Problem Code: T14.91xD; Problem Code Type: ICD-10; MD Gonzalo [address] Dr, [facility] [address] , [facility] 4 17:42:23 Suicidal Active 2023 recurrent MD [address], [facility] [address] , [facility] 4 17:43:22 Heart failure with reduced ejection fraction Active 2022 Jessica light, [facility] 4 14:11:13 Problem Notes None recorded. Procedures Surgical History Date Name Laterality Status Provider Name and Address Organization Details Recorded Time 0 hysterectomy completed MD Gonzalo [address], [place], [address], [facility] 12/09/2023 20:53:39 Imaging Results Imaging Date Name Status LastModified by Organization Details LastModified Time 12/01/2023 ED visit note completed [address] [place], [address] 12/02/2023 09:20:38 12/02/2023 CT imaging report completed [email or web address] [address] [place], [address] 12/03/2023 13:23:11 12/02/2023 ED visit note completed [address] [place], [address] 12/03/2023 13:23:11 12/31/2023 mental health crisis note completed [address] [place], [address] 12/31/2023 17:21:42 12/31/2023 ED visit note completed [address] [place], [address] 12/31/2023 17:21:41 12/31/2023 care management safety plan completed [email or web address] [address] [place], [address] 01/01/2024 12:01:18 01/01/2024 ED progress note completed [address] [place], [address] 01/01/2024 14:32:57 01/01/2024 care management progress note completed [email or web address] [address] [place], [address] 01/01/2024 16:24:41 01/07/2024 mental health crisis note completed [address] [place], [address] 01/08/2024 11:00:44 01/07/2024 ED visit note completed [address] [place], [address] 01/08/2024 11:00:43 01/07/2024 ED progress note completed [address] [place], [address] 01/08/2024 11:00:44 01/08/2024 ED progress note completed [address] [place], [address] 01/08/2024 11:00:45 01/08/2024 ED progress note completed [address] [place], [address] 01/09/2024 17:04:48 01/08/2024 ED progress note completed [address] [place], [address] 01/09/2024 17:04:48 01/08/2024 ED progress note completed [address] [place], [address] 01/09/2024 17:04:49 01/09/2024 ED progress note completed [address] [place], [address] 01/09/2024 17:04:49 01/09/2024 mental health progress note completed [address] [place], [address] 01/09/2024 17:04:49 01/09/2024 care management safety plan completed [email or web address] [place], [address] 01/09/2024 17:04:50 01/08/2024 care management safety plan completed [email or web address] [place], [address] 01/09/2024 17:04:48 01/09/2024 ED progress note completed [address] [place], [address] 01/10/2024 10:35:39 01/10/2024 ED progress note completed [address] [place], [address] 01/10/2024 10:35:40 01/10/2024 care management safety plan completed [email or web address] [place], [address] 01/11/2024 07:54:44 01/10/2024 mental health progress note completed [email or web address] [address] [place], [address] 01/11/2024 07:54:44 01/11/2024 ED progress note completed [email or web address] [place], [address] 01/11/2024 07:54:44 01/11/2024 ED progress note completed [email or web address] [place], [address] 01/11/2024 17:26:01 01/07/2024 ED progress note completed [email or web address] [place], [address] 01/12/2024 19:02:28 01/11/2024 ED progress note completed [email or web address] [place], [address] 01/12/2024 19:02:29 01/09/2024 ED progress note completed [email or web address] [place], [address] 01/12/2024 19:02:29 01/08/2024 ED progress note completed [email or web address] [place], [address] 01/12/2024 19:02:29 01/11/2024 ED progress note completed [email or web address] [place], [address] 01/12/2024 19:02:30 01/11/2024 ED progress note completed [email or web address] [place], [address] 01/12/2024 19:02:30 01/12/2024 psychiatric consultation completed [address] [place], [address] 01/12/2024 19:02:30 01/12/2024 psychiatric consultation completed [address] [place], [address] 01/12/2024 19:02:31 01/12/2024 care management safety plan completed [email or web address] [place], [address] 01/12/2024 19:02:31 01/12/2024 psychiatric consultation completed [address] [place], [address] 01/12/2024 19:02:31 01/12/2024 ED progress note completed [email or web address] [place], [address] 01/13/2024 07:40:16 01/13/2024 mental health progress note completed [address] [place], [address] 01/13/2024 14:08:53 01/13/2024 ED progress note completed [email or web address] [place], [address] 01/13/2024 17:29:32 01/13/2024 mental health progress note completed [address] [place], [address] 01/14/2024 16:09:29 01/13/2024 ED progress note completed [address] [place], [address] 01/14/2024 16:09:29 01/14/2024 rhythm strip, EKG* completed [address] [place], [address], 01/15/2024 11:50:15 01/13/2024 rhythm strip, EKG* completed [address] [place], [address], 01/24/2024 08:02:11 Procedure Notes None recorded. Medical Equipment None Reported. Allergies Allergen ID Allergen Name Allergen Category Reaction Reaction Severity Criticality Documentation Date Start Date Code Code System Note Provider Name and Address Organization Details Recorded Time 06828 Medicinal product containin g penicilli n and acting as antibacte rial agent (product) medicatio n anaphylax is Not available Not available 10/02/20232004 98885 05 SNOMED anaph ylact ic shock Aller gyCod e: '8340 61'; Aller gyNam e: 'PENI CILLI N'; Aller gyCon ceptT ype: 'RX Norm' ; Aller gyRea ction : 'anap hylac tic shock '; Not Available [facility] 3 16:14:27 04558 Substance with sulfonami de structure and antibacte rial mechanism of action (substanc e) medicatio n diarrhea nausea mild mild low 10/07/2023 21317 8003 SNOMED RADHAMES SARAH, [place] [facility] 3 11:21:44 Medications Name Sig Start [...] completed Not Available Not Available Not Available [facility] Use 1 strip daily as directed . [...] TABLET BY MOUTH TWICE A DAY active Melvina Bond Not Available Not Available Not Available lisinopri l 10 mg tablet take 1 tablet by mouth once daily 04/01 completed Not Available Not Available Not Available promethaz ine 25 mg tablet 1tab [id number] 03/16 completed Not Available Not Available Not [...] by mouth once a day 11/27 completed [facility] cardiolo gy Not Available Not Available Not [...] tab by mouth daily 2018 active per [facility] Not Available Not Available Not Available aripipraz [...] 2 patches, change q3d. Fill only at [facility] 2014 active Not Available Not Available [...] by mouth once a day 11/06 completed [facility] [facility] [place] [facility] Not Available Not Available Not [...] TABLET BY MOUTH TWICE A DAY active [facility] [place] [facility] Not Available Not Available Not [...] Not Available Not Available Not Avai lable Narcan 4 mg/actuat ion nasal spray Administ [...] and Address Organization Details Last Updated DateTime 3 165.1 cm 32.6 kg/m2 54845.1 g 97.7 [degF] 88 /min 18 /min 104 mm[Hg] 62 mm[Hg] ELLIE LYNN LPN [facility] 3 11:23:52 Date Recorded Body height Body mass index (BMI) Body weight Body temperature Heart rate Respiratory rate Systolic blood pressure Diastolic blood pressure Provider Name and Address Organization Details Last Updated DateTime 4 165.1 cm 32.3 kg/m2 36181.9 2 g 96.6 [degF] 92 /min 16 /min 100 mm[Hg] 62 mm[Hg] ELLIE LYNN LPN [facility] 4 10:51:19 Date Recorded Body height Body mass index (BMI) Body weight Body temperature Oxygen saturation Oxygen saturation in Arterial blood by Pulse oximetry Respiratory rate Heart rate Systolic blood pressure Diastolic blood pressure Provider Name and Address Organization Details Last Updated DateTime 4 165.1 cm 31.5 kg/m2 35373.9 6 g 97.1 [degF] 96 % 96 % 16 /min 92 /min 112 mm[Hg] 68 mm[Hg] ELLIE LYNN LPN [facility] 4 11:24:51 Date Recorded Body height Body mass index (BMI) Body weight Heart rate Respiratory rate Body temperature Oxygen saturation Oxygen saturation in Arterial blood by Pulse oximetry Systolic blood pressure Diastolic blood pressure Provider Name and Address Organization Details Last Updated DateTime 4 165.1 cm 31 kg/m2 38569.1 8 g 84 /min 16 /min 97.7 [degF] 99 % 99 % 104 mm[Hg] 68 mm[Hg] ELLIE LYNN LPN [facility] 4 14:43:33 Date Recorded Body height Body mass index (BMI) Body weight Body temperature Heart rate Respiratory rate Systolic blood pressure Diastolic blood pressure Provider Name and Address Organization Details Last Updated DateTime 4 165.1 cm 29.6 kg/m2 05618.4 4 g 97.7 [degF] 78 /min 16 /min 104 mm[Hg] 70 mm[Hg] ELLIE LYNN LPN [facility] 4 14:36:47 Social History Question Answer Notes LastModified by Organizat ion Details LastModified Time Tobacco Smoking Status Former Smoker ELLIE LYNN LPN [facility], [facility] 05/27/2024 14:30:57 When Did You Quit Smoking? 1-5yearsmichael [place] Information not available 05/27/2024 Date Of [...] And Wanted Help? (For Example, If You [place] Very Nervous, Lonely, Or Blue; Got Sick [...] DM Type II MGM: CVA PGF: CAD, ID lots of DMII on both sides. Medical History No medical history recorded. Gynecological HistoryNo gynecological history recorded. Obstetrics History GPAL:G 0 P 0 0 0 0 Immunizations Vaccine Type Date Status Provider Name and Address Organization Details Recorded Time Hep B, adult 05/27/2024 completed MANISHA ELLIS MD [address], [place], [address], [facility] 05/27/2024 16:56:26 Td (adult), 5 Lf tetanus toxoid, preservative free, adsorbed 03/04/2019 completed Not Available [facility] 10/02/2023 05:15:00 Tdap 02/08/2009 completed Not Available [facility] 05:15:00 Novel Awiybijao-[id number], all formulations 10/08/2009 completed Not Available [facility] 10/02/2023 05:15:00 Td(adult) unspecified formulation 03/27/2003 completed Not Available [facility] 10/02/2023 05:15:00 Influenza, split virus, trivalent, preservative 09/05/2015 completed Not Available [facility] 10/02/2023 05:15:00 Influenza, split virus, trivalent, preservative 10/29/2016 completed Not Available [facility] 10/02/2023 05:15:00 Influenza, split virus, quadrivalent, PF 08/08/2019 completed Not Available [facility] 10/02/2023 05:15:01 Influenza, split virus, quadrivalent, PF 08/24/2020 completed Not Available [facility] 10/02/2023 05:15:01 Influenza, split virus, quadrivalent, PF 09/29/2022 completed Not Available [facility] 10/02/2023 05:15:01 Influenza, split virus, quadrivalent, preservative 08/11/2018 completed Not Available [facility] 10/02/2023 05:15:01 Influenza, split virus, quadrivalent, preservative 08/27/2017 completed Not Available [facility] 10/02/2023 05:15:01 COVID-19, mRNA, LNP-S, PF, 30 mcg/0.3 mL dose 06/17/2021 completed Not Available [facility] 10/02/2023 05:15:01 COVID-19, mRNA, LNP-S, PF, 30 mcg/0.3 mL dose 07/09/2021 completed Not Available [facility] 10/02/2023 05:15:01 Pneumococcal conjugate PCV20, polysaccharide OCE390 conjugate, adjuvant, PF 09/22/2022 completed Not Available [facility] 10/02/2023 05:15:02 COVID-19, mRNA, LNP-S, PF, 30 mcg/0.3 mL dose, leticia-sucrose 04/16/2022 completed Not Available [facility] 10/02/2023 05:15:02 COVID-19, mRNA, LNP-S, bivalent, PF, 30 mcg/0.3 mL dose 09/22/2022 completed Not Available [facility] 10/02/20 05:15:02 pneumococcal polysaccharide PPV23 03/27/2003 completed Not Available [facility] 2022 05:15:02 Hep B, adult 02/15/2018 completed Not Available [facility] 10/02/2023 05:15:02 Hep B, adult 04/16/2018 completed Not Available [facility] 10/02/2023 05:15:02 influenza, unspecified formulation 07/28/2014 completed Not Available [facility] 10/02/2023 05:15:02 Influenza, split virus, quadrivalent, PF 08/28/2023 completed Not Available [facility] 12/04/2023 05:33:21 Past Encounters Encounter ID Performer Location Encounter Start Date Encounter Closed Date Diagnosis/Indication Diagnosis SNOMED-CT Code [id number] MANISHA ELLIS MD [address] [place] [address] 10/07/2023 11:05:46 10/07/2023 12:08:55 Chronic pain syndrome 490393329 Diabetes m ellitus without complication 253843451 Recurrent candidiasis of vagina 261094666 Depressive disorder 9510 6583 [id number] MANISHA ELLIS MD [facility] [address] [place] [address] 01/06/2024 10:37:57 01/06/2024 11:32:57 Recurrent major depression 90070847 Lumbago with sciatica 20 0357220 [id number] MANISHA ELLIS MD [facility] [address] [place] [address] 01/27/2024 10:52:59 01/27/2024 12:13:44 Recurrent major depression 15110165 Candidiasis of skin 4906 3006 Type 2 ketty betes mellitus without complication 535189365 [id number] MANISHA ELLIS MD [facility] [address] [place] [address] 03/02/2024 14:33:16 03/02/2024 15:20:10 Recurrent major depression 32383332 Anxiety disorder 5115089 06 Chronic pain syndrome 37 0148486 Insomnia 355513598 Type 2 ketty betes mellitus without complication 171673200 [id number] MANISHA ELLIS MD [facility] [address] [place] [address] 05/27/2024 14:18:46 05/27/2024 15:14:54 Chronic pain syndrome 317460080 Adult [facility] th examination 364782093 Screening mammography 24 286471 Type 2 ketty betes mellitus without complication 027215373 Obesity 518512378 Chronic depression 83351 0009 Polycystic ovary syndrome 428381708 Vaginitis 59578921 Candidiasis of skin 4988 3006 Depressive disorder 3548 9007 Hypothyroidism 46473192 Chronic te nsion-type headache 048844625 Insomnia 218515572 Migraine 36340487 Gastroesop hageal reflux disease 771350970 Joint pain 09103288 Hyperlipidemia 05779811 Herpesvirus infection 23 665401 Seasonal a llergic rhinitis 224357320 Heart fail ure with reduced ejection fraction 229961183 Atheroscle rosis of coronary artery without angina pectoris 26852169537631 3 Active or passive immunization 307557945 Health Concerns Section Related Observation LastModified by Organization Detai ls LastModified Time None Recorded Concern Status LastModified by Organization Details LastModified Time None Recorded Advance Directives Directive None Recorded Payers Encounter Date Sequence Insurance Name Policy Number Policy Mack Covered Member ID Mack Member ID Guarantor Name 10/07/2023 1 [place] [facility] Jammie Gottlieb [id number] 1 Jammie Gottlieb 10/07/2023 2 [place] [facility] (MEDICAID) Jammei Zhouck [id number] Jammie [place] 01/06/2024 1 [place] [employer] Jammie Zhouck [id number] 1 Jammie Smiley [place] 01/06/2024 2 [employer] ([place]ICAID) Jammie [place] [id number] Jammie Smiley [place] 01/27/2024 1 [place] [facility] Jammie Zhouck [id number] 1 Jammie Smiley [place] 01/27/2024 2 [facility] [facility] ([place]ICA[place]) Jammie Zhouck [id number] Jammie Smiley [place] 03/02/2024 1 [place] [facility] Jammie Gottlieb [id number] 1 Jammie Smiley [place] 03/02/2024 2 [employer] (MEDICAID) Jammie Zhouck [id number] Jammie Smiley [place] 05/27/2024 1 [place] [facility] Jammie Gottlieb [id number] 1 Jammie Smiley [place] 05/27/2024 2 [facility] (MEDICAID) Jammie [place] [id number] Jammie Smiley Chery Notes Date Note Type Note Provider Name and Address Organization Details Recorded Time 10/07/2023 text/html HPI Notes: Anxiety/Depression Reported by patient. Notes: Depression- mood is still not good, up and down. Seeing Stefania Garcia in person, once a week, only a few times, getting to know each other, some help with her daughter. DM- she is not checking her blood sugars at home. Continues to use trulicity, and continues to lose weight. Cravings have gotten better. She has had 3 yeast infections since last visit. Thinks perhaps a bit less often on FARXIGA than she was having on the JARDIANCE... She uses fluconazole when she gets symptoms, usually takes 2 doses. No discharge, but she gets burning and itching. Has been tested at least twice with confirmed yeast. She had a hard time opening a Baylee tea bottle, sore on left palm. It was red and green on top, but that has diminished. Top came off yesterday and in fact it looks better. She has not done veggie van go, does have flyer at home. She is using 1 week pill box in lock box. Medications continue to help with depression and anxiety. Dilaudid continues to help with pain. Having some discomfort at site of her defibrillator, has follow up soon. MD [address], [place], [address], [facility]. 10/07/2023 17:52:33 01/06/2024 text/html HPI Notes: Elliot mejias was admitted [facility] psych on 01/01 for depression and suicidal ideation. She was discharged 01/05. Today she is not having any suicidal ideation, but she is not doing well, shaky. Discuss medications, She is concerned she has dementia, she has been for a long time. She denies suicidal thoughts currently, though she still feels that everything is difficult. She is having a very hard time leaving the house, has not even been walking the dogs. Her lamotrigine dose was increased from 100 mg to 150 mg, and her wellbutrin was changed from SR to XL formulation. There was a mix up at the pharmacy- while she got 150 mg as inpatient, the 150 was not at the pharmacy so the last day or two she was back down to 100 mg. She did have an ECG prior to dose increase without any QT prolongation. They would like her to have an EKG on the new dose. She has been seeing Stefania [place], but not convinced that it is the correct dose. Discuss psychiatrist. She feels that I have managed her meds in the past- though we discussed that she is not doing all that well, and insight from psychiatry would be helpful to me. For some reason if she takes dilaudid 4 mg BID it makes her feel much more drowsy than when she took 2 of the 2 mg pills twice a day. MD [address], [place], [address], [facility]. 01/06/2024 17:06:12 01/27/2024 text/html HPI Notes: Elliot mejias is here for f/u after recently admitted to [facility] for depression and SI. She initially left immediately but went back after realizing she was still suicidal. Was hospitalized for 15 days. They changed her wellbutrin to XL version to 450mg daily during first hospitalization. Sleep got much better after changing to XL. They increased lamictal to 200mg daily. She feels this has helped her mood but has been keeping her up at night. Has problems with both falling and staying sleep. Didn't have sleep issues when she was on 175mg. She takes the med in the evening. She was weaned off the CYMBALTA during most recent hopstial stay. She feels much better today: had SI as recently as last week. Those feelings have resolved over the last week. Recent stressors include the of her stepfather last week. She left the hospital because she felt she needed to plan for the . Planning to have celebration of life in a few months. She feels safe at home. No firearms in house, medicine locked in file cabinet. Partner is actively involved in care and support at home. She is still anxious about leaving the house due to agoraphobia. Has not been able to walk her dog. Never got a chance to call Randi MITCHELL she has seen in the past) due to going to hospital but has her number and planning to call soon. Still interested in referral to [facility] for a psychiatrist. Pain same as usual 5-05/02. Taking dilaudid 4mg once a day. Makes her feel nauseous and dizzy. Didn't have this side effect when she was taking 2mg twice a day. Pharmacy doesn't carry 2mg tablets anymore. Side effects have been getting better and is willing to tolerate for now. Reports a yeast infection under belly. Occurs in same place every couple of years. Tender but not itchy or bleeding. MANISHA ELLIS MD [address], [place], [address], [facility], [facility]. 01/27/2024 15:33:11 03/02/2024 text/html HPI Notes: Here for follow up of multiple problems as noted below: Depression- Mood has been pretty good. [facility] protective services case worker called to let us know that she has been accepted for counselling and medication provider. She has been going out for some walks with her daughter (She can not control the dogs on her own). She has been good about going to her appointments, she has been going shopping (which she had not been able to do for a long time) took her daughter to the movies. her daughter is also getting better, she is also on lamotrigine Still worries about things all the time. clonanazepam and dilaudid is locked in partners lock box, just gets enough for one dose at a time. Chronic pain- She has been taking 1/2 dilaudid bid for the last 4 days, and has been having a hard time. She can not get over how helpful 4 mg bid is for pain. VPMS appropriate. Back pain is manageable but the left leg pain is terrible. MANISHA ELLIS MD [address], [place], [address], [facility]. 03/02/2024 16:37:09 05/27/2024 text/html HPI Notes: Here for Medicare [...] having panic attacks. Son is getting today. MANISHA ELLIS MD [address], [place], [address], [place] [facility]. 05/27/2024 17:16:04 OBGyn Episode No OBEpisode recorded.
--- OUTSIDE RECORDS SUMMARY | 2024-06-03 00:22 | XMS_ITS | Clinical Summary ---
Author Organization [facility] Address [facility] [place] [address] Care Team Providers Care Advertising Vice President Name Role Phone Edie Ellis MD Primary Care Provider [phone] Allergies Active Allergy Reactions Criticality Noted Date Comments Penicillins Anaphylaxis High 04/02/2021 Other reaction(s): throat closes Sulfa (Sulfonamide Antibiotics) Hives Low 04/02/2021 Other reaction(s): Hives Medications Medication Sig Dispensed Refills Start Date End Date Status albuterol (PROVENTIL HFA;VENTOLIN HFA) 90 mcg/Actuation inhaler Inhale 2 puffs into the lungs every 4 hours as needed. Use with spacer Active omeprazole (PRILOSEC) 20 mg capsule Take 20 mg by mouth daily. Active naratriptan (AMERGE) 2.5 mg tablet Take 2.5 mg by mouth as needed. Take one (1) tablet at onset of headache; if returns or does not resolve, may repeat after 4 hours; do not exceed five (5) mg in 24 hours. Active polyethylene glycol (MIRALAX) 17 gram packet Take 17 g by mouth as needed. Active rosuvastatin (CRESTOR) 10 mg tablet Take 10 mg by mouth every evening. Active magnesium oxide (MAG-OX) 400 mg tablet Take 400 mg by mouth 2 times daily. Active Riboflavin 25 mg Tablet Take 200 mg by mouth 2 times daily. Active VITAMIN B COMPLEX & VIT C NO.3 (VITAMIN B COMP & C NO.3 ORAL) Take 1 mg by mouth. Active valACYclovir (VALTREX) 1 g tablet Take 1,000 mg by mouth as needed. Active aspirin 81 mg EC tablet Take 81 mg by mouth daily. Active cyanocobalamin, Vitamin B-12, (Vitamin B-12) 1,000 mcg Tablet TAKE 1 TABLET BY MOUTH EVERY DAY 04/23/2021 Active estradioL (Estrace) 1 mg Tablet 2 times daily. 06/10/2021 Active Aerochamber Max with Flow-VU Spacer USE DIRECTED 04/17/2021 Active lamoTRIgine (LaMICtal) 100 mg Tablet Take 200 mg by mouth daily. 05/23/2021 Active levothyroxine (Synthroid) 25 mcg Tablet Bedtime 03/05/2017 Active loratadine (Claritin) 10 mg Tablet TAKE 1 TABLET BY MOUTH EVERY DAY NEEDED 06/05/2021 Active metFORMIN XR (Glucophage XR) 500 mg Tablet Sustained Release 24 hr Twice a day 03/12/2015 Active naloxone (Narcan) 4 mg/actuation [place], Non-Aerosol Once 03/10/2019 Active cholecalciferol, Vitamin D3, 50 mcg (2,000 unit) Capsule TAKE 1 CAPSULE BY MOUTH DAILY 07/31/2021 Active Trulicity 3 mg/0.5 mL Pen Injector once a week. 01/01/2022 Active prochlorperazine (Compazine) 10 mg Tablet Take 10 mg by mouth as needed. 12/18/2021 Active valACYclovir (Valtrex) 500 mg Tablet Take 500 mg by mouth nightly. 12/24/2021 Active naproxen (NAPROSYN) 500 mg Tablet 2 times daily. 12/24/2021 Active hydrocortisone 2.5 % Cream as needed. 12/31/2021 Active duloxetine HCl (CYMBALTA ORAL) Take 30 mg by mouth daily. New dose from 40 mg to 30 mg Active metoprolol succinate XL (Toprol-XL) 100 mg ER 24 hr tablet Take 1 tablet by mouth daily. 90 tablet 3 03/12/2023 Active omega-3 acid ethyl esters (Lovaza) 1 gram capsule Take 2 capsules by mouth 2 times daily. 120 capsule 5 03/16/2023 Active icosapent ethyL (Vascepa) 1 gram capsule Take 2 g by mouth 2 times daily. 120 capsule 11 03/19/2023 Active pregabalin (Lyrica) 100 mg capsule Take 100 mg by mouth 2 times daily. 07/01/2023 Active fluconazole (Diflucan) 150 mg tablet Take 150 mg by mouth as needed. 06/11/2023 Active clonazePAM (KlonoPIN) 1 mg tablet Take 1 mg by mouth 2 times daily as needed. 07/01/2023 Active sacubitriL-valsart an (Entresto) 97-103 mg tabletIndications: HFrEF (heart failure with reduced ejection fraction) Take 1 tablet by mouth 2 times daily. 180 tablet 3 07/07/2023 Active multivitamin Capsule Take 1 capsule by mouth daily. Active dapagliflozin propanediol (Farxiga) 5 mg tablet Take 5 mg by mouth daily. Active Biotin 5 mg capsule As directed, every three days 0 07/15/2023 Active HYDROmorphone (Dilaudid) 2 mg tablet Take 1 tablet by mouth every 4 hours as needed for Pain. 20 tablet 07/15/2023 Active Additional Information Patient taking differently: 4 mgOral2 TIMES DAILY, Reported on 03/09/2024 clindamycin (Cleocin) 150 mg capsuleIndications :ICD (implantable cardioverter-defib rillator), single, in situ,Skin wound from surgical incision Take 1 capsule by mouth 3 times daily. 15 capsule 08/03/2023 Active buPROPion HCL (Forfivo XL) 450 mg XL 24 hr tablet Take 1 tablet by mouth Daily at Noon. 01/22/2024 Active Active Problems Problem Noted Date Diagnosed Date SQ ICD, [employer], single lead 3 Overview (07/15/2023): Device Repair Technician Model # Serial # Generator [employer] [id number] Ventricular Lead [employer] [id number] HFrEF (heart failure with reduced ejection fract ion) 07/14/2023 Chronic pain in right shoulder 07/03/2023 T2DM 06/09/2021 Essential hypertension 06/09/2021 Syncope 06/09/2021 Post laminectomy syndrome 03/20/2015 Cardiomyopathy 03/30/2014 Atrial fibrillation 03/30/2014 Lumbar radiculopathy 12/08/2011 Encounters Date Type Department Care Team Description 04/10/2024 10:00 AM EDT - 04/10/2024 11:59 PM EDT Hospital Encounter [place] [address] Discharge Disposition: Home 03/09/2024 10:00 AM EDT Office Visit Cardiology at [facility] [address] [place] [address] Jonathan Willson MD ICD (implantable cardioverter-defibri llator) in place 03/09/2024 Travel from Last 3 Months Immunizations Name Administration Dates Next Due Influenza Quadrivalent, Preservative Free 2020 Influenza Vaccine, Whole 08/28/2009,10/28/2008 MMR Vaccine LIVE 02/18/2010 Family History Medical History Relation Comments Cancer Maternal Aunt overian Diabetes Maternal Grandfather Diabetes Maternal Grandmother Stroke Maternal Grandmother Diabetes Maternal Uncle Alcohol Use Disorder Mother Diabetes Mother plus others Diabetes Paternal Grandmother Relation Status Comments Maternal Aunt Maternal Grandfather Maternal Grandmother Maternal Uncle Mother Paternal Grandmother Social History Tobacco Use Types Packs/Day Years Used Date Smoking Tobacco: Former Cigarettes 1 - 08/2022 Smokeless Tobacco: Never Tobacco Cessation:Counseling Given: Not Answered Comments:no more than 5 a day - 01/02/2022 Alcohol Use Standard Drinks/Week Comments Yes 0 (1 standard drink = 0.6 oz pur e alcohol) rarely [facility] Inpatient Questions Answer Date Recorded Does Anyone [...] Orientation Straight 10/05/2021 11 :32 AM EST Last Filed Vital Signs Vital Sign [place] Time Taken Comments Blood Pressure 103/70 03/09/2024 9:58 AM EDT Pulse 91 03/09/2024 9:58 AM EDT Temperature 36.1 ??C (97 ??F) 08/07/2023 9:04 AM EDT Respiratory Rate 14 08/07/2023 9:45 AM EDT Oxygen Saturation 99% 03/09/2024 9:58 AM EDT Inhaled Oxygen Concentration - - Weight 129.3 kg (285 lb) 03/09/2024 9:58 AM EDT Height 162.6 cm (5' 4) 03/09/2024 9:58 AM EDT Body Mass Index 48.92 03/09/2024 9:58 AM EDT Plan of Treatment Upcoming Encounters Date Type Department Care Team (Late st Contact Info) Description 07/09/2024 10:00 AM EDT Hospital Encounter [place] [address] Arrived Health Maintenance Due Date Last Done Comments CT Colonography 1975 Colonoscopy 1975 Colorectal Cancer Screening 1975 FIT DNA 1975 FIT 1975 Sigmoidoscopy (10 year) with FIT yearly 1975 Sigmoidoscopy 1975 Pneumococcal Vaccine: At-Ris k 5-64yrs (1 of 2 - PCV) 1981 DM Hemoglobin A1c 1985 DM Opthalmology Exam 1985 DM Urine Microalbumin yearly 1985 HIV screen 1993 Hepatitis C Screening 1993 Hepatitis B vaccine (0-59 yrs) (1) 1994 Tdap adult 1994 Tetanus vaccine 1994 HPV test 2005 PAP Smear 2005 Breast Cancer Share Decision Needed 2015 Breast Cancer screening 2015 Covid-19 Vaccine (1 - 2022-2 4 season) 2023 Influenza (Flu) vaccine (1 o f 1 - Influenza standard series) 07/24/2024 09/06/2021, 08/28/2009, 10/28/2008 DM Creatinine yearly 08/07/2024 08/07/2023, 07/14/2023, 05/04/2023, Additional history exists Medical Devices Implanted Type Area Device Repair Technician Device Identifier Shelf Expiration Date Model / Serial / Lot Bsx: [id number]: [id number]/22/2 023 Implanted: by Jonathan Willson MD (Quantity not on file) Defibrillator Chest Wall [employer] A219 / [id number] / Bsx: [id number]: [id number]/22/2 023 Implanted: by Jonathan Willson MD (Quantity not on file) Lead Heart [employer] 3501 / [id number] / Explanted Type Area Device Repair Technician Device Identifier Shelf Expiration Date Model / Serial / Lot Lead,Trial,St,. 0014,Stylt,50cm ([id number]) - [id number] Implanted:Qty: 1 on 06/03/[address] [facility] Explanted:Qty: 1 on 06/03/2012 IMPLANTS Left: Back DO NOT USE [employer] - [id number] 04/03/2014 [id number] / [id number] / Description:Per note in charity t. Lead looks to have been pulled same day. Had radiologist look at CT and confirmed no leads in place. Francis Garcia RT(R)(CT)(MR)(ARRT), MRI Safety Technologist, 04/09/2021 Procedures Procedure Name Priority Date/Time Associated Diagnosis Comments CARDIAC DEVICE CHECK - REMOTE Routine 05/17/2024 1:41 PM EDT HC VENIPUNCTURE STAT 08/07/2023 7:38 AM EDT from Last 3 Months or Most Recently Relevant to Health Maintenance Results * Cardiac Device Check - Remote (05/17/2024 1:41 PM EDT) Anatomical Region Laterality Modality Other 05/17/2024 1:41 PM EDT Hero Taylor MD IMPLANTABLE CARDIAC DEVICE * (ABNORMAL) BMP w/fasting Glucose (08/07/2023 7:38 AM EDT) Glucose Fasting 165(H) 65 - 99 mg/dL [facility] Comment: ?Fasting* Glucose Interpretive Criteria Normal ?65-99 mg/dL Impaired Fasting glucose ?100-125 mg/dL Consistent with Diabetes Mellitus ? >or= 126 mg/dL *Fasting is defined as no caloric intake for at least 8 hours In the absence of unequivocal hyperglycemia a plasma glucose value of >or= 126 mg/dL should be repeated on a subsequent day. Diagnosis and Classification of Diabetes Mellitus, Position Statement from the [place] [employer]. ??Diabetes Care, Volume 33, Supplement 1, Nov 2009 BUN 17 8 - 18 mg/dL [facility] Creatinine 0.52(L) 0.70 - 1.20 mg/dL [facility] Sodium 137 135 - 145 mmol/L [facility] Potassium 4.7 3.5 - 5.0 mmol/L [facility] Comment: Please note: ??Patients with WBC >100,000 may have falsely elevated Potassium levels. ??For accurate Potassium quantification in these patients send serum separator tube (gold top) for subsequent determinations. ??Contact the Clinical Chemistry Laboratory if there are any questions. Chloride 102 98 - 107 mmol/L [facility] CO2 26 22 - 31 mmol/L [facility] Anion Gap 9 5 - 15 mmol/L [facility] Calcium 9.1 8.5 - 10.5 mg/dL [facility] Estimated GFR 115 >=60 mL/min/1. 73 m?? [facility] Comment: This patient's estimated GFR was calculated using the 2020 CKD-EPI equation. The estimated GFR can vary from the measured GFR by up to 30% in the absence of rapidly changing kidney function. Assessment of the estimated GFR is not appropriate when creatinine concentrations are rapidly changing. For clinical situations in which a more precise estimate of GFR is necessary, consider alternative methods of GFR estimation such as a 24-hour urine creatinine clearance. Assignment of CKD stage 1-5 for patients with an eGFR near the transition point between stages may be based on clinical assessment of muscle mass and symptoms in addition to eGFR. Blood 08/07/2023 7:38 AM EDT 08/07/2023 7:40 AM EDT Narrative Resulting Agency Comment Spec In Lab Hero Taylor MD CHEMISTRY ORDERABLES [facility] [place] [address] from Last 3 Months or Most Recently Relevant to Health Maintenance Advance Directives Documents on File Type Date Recorded Patient Check Scaler Expl anation Personal Check Scaler 07/03/2023 3:24 PM YONI GOTTLIEB/SPOUSE * Attempt Cardiopulmonary Resuscitation - Inpatient (Latest Code Status on File) Date Activated Date Inactivated Comments 08/07/2023 7:58 AM 08/07/2023 12:21 PM Question Answer Comments Code Status decision made by: Patient * Attempt Cardiopulmonary Resuscitation - Inpatient Date Activated Date Inactivated Comments 09/06/2021 10:30 AM 09/06/2021 5:08 PM Question Answer Comments Code Status decision made by: Patient * Full Code Date Activated Date Inactivated Comments 06/03/2012 1:53 PM 07/01/2021 9:25 AM Question Answer Comments Does patient have decision m aking capacity? Yes, Order is based on Patients wishes. * Full Code Date Activated Date Inactivated Comments 06/03/2012 10:05 AM 06/03/2012 1:53 PM Question Answer Comments Order Status: Initial Order Does patient have decision m aking capacity? Yes, Order is based on Patients wishes. Care Teams Advertising Vice President Relationship Specialty Start Date End Date Edie Ellis MD [address] [place] [address] PCP - General 10/15/10
--- OUTSIDE RECORDS SUMMARY | 2024-06-03 00:22 | XMS_ITS | Encounter Summary ---
[place] [address] Care Team Providers Care Sueding Machine Tender Name Role Phone Edie Ellis MD Primary Care Provider [phone] Encounter Details Date Type Department Care Team (Latest Contact Info) Description 04/10/2024 10:00 AM EDT - 04/10/2024 11:59 PM EDT Hospital Encounter [place] [address] Discharge Disposition: Home Social History Tobacco Use Types Packs/Day Years [...] AM EST documented as of this encounter Medications at Time of Discharge Medication Sig Dispensed Refills Start Date End Date buPROPion HCL (Forfivo XL) 450 mg XL 24 hr tablet Take 1 tablet by mouth Daily at Noon. 01/22/2024 clindamycin (Cleocin) 150 mg capsuleIndications:ICD (implantable cardioverter-defibrilla tor), single, in situ,Skin wound from surgical incision Take 1 capsule by mouth 3 times daily. 15 capsule 08/03/2023 Biotin 5 mg capsule As directed, every three days 0 07/15/2023 HYDROmorphone (Dilaudid) 2 mg tablet Take 1 tablet by mouth every 4 hours as needed for Pain. 20 tablet 07/15/2023 multivitamin Capsule Take 1 capsule by mouth daily. dapagliflozin propanediol (Farxiga) 5 mg tablet Take 5 mg by mouth daily. sacubitriL-valsartan (Entresto) 97-103 mg tabletIndications:HFrEF (heart failure with reduced ejection fraction) Take 1 tablet by mouth 2 times daily. 180 tablet 3 07/07/2023 pregabalin (Lyrica) 100 mg capsule Take 100 mg by mouth 2 times daily. 07/01/2023 fluconazole (Diflucan) 150 mg tablet Take 150 mg by mouth as needed. 06/11/2023 clonazePAM (KlonoPIN) 1 mg tablet Take 1 mg by mouth 2 times daily as needed. 07/01/2023 icosapent ethyL (Vascepa) 1 gram capsule Take 2 g by mouth 2 times daily. 120 capsule 11 03/19/2023 omega-3 acid ethyl esters (Lovaza) 1 gram capsule Take 2 capsules by mouth 2 times daily. 120 capsule 5 03/16/2023 metoprolol succinate XL (Toprol-XL) 100 mg ER 24 hr tablet Take 1 tablet by mouth daily. 90 tablet 3 03/12/2023 duloxetine HCl (CYMBALTA ORAL) Take 30 mg by mouth daily. New dose from 40 mg to 30 mg Trulicity 3 mg/0.5 mL Pen Injector once a week. 01/01/2022 prochlorperazine (Compazine) 10 mg Tablet Take 10 mg by mouth as needed. 12/18/2021 valACYclovir (Valtrex) 500 mg Tablet Take 500 mg by mouth nightly. 12/24/2021 naproxen (NAPROSYN) 500 mg Tablet 2 times daily. 12/24/2021 hydrocortisone 2.5 % Cream as needed. 12/31/2021 cholecalciferol, Vitamin D3, 50 mcg (2,000 unit) Capsule TAKE 1 CAPSULE BY MOUTH DAILY 07/31/2021 cyanocobalamin, Vitamin B-12, (Vitamin B-12) 1,000 mcg Tablet TAKE 1 TABLET BY MOUTH EVERY DAY 04/23/2021 estradioL (Estrace) 1 mg Tablet 2 times daily. 06/10/2021 Aerochamber Max with Flow-VU Spacer USE DIRECTED 04/17/2021 lamoTRIgine (LaMICtal) 100 mg Tablet Take 200 mg by mouth daily. 05/23/2021 levothyroxine (Synthroid) 25 mcg Tablet Bedtime 03/05/2017 loratadine (Claritin) 10 mg Tablet TAKE 1 TABLET BY MOUTH EVERY DAY NEEDED 06/05/2021 metFORMIN XR (Glucophage XR) 500 mg Tablet Sustained Release 24 hr Twice a day 03/12/2015 naloxone (Narcan) 4 mg/actuation [place], Non-Aerosol Once 03/10/2019 magnesium oxide (MAG-OX) 400 mg tablet Take 400 mg by mouth 2 times daily. Riboflavin 25 mg Tablet Take 200 mg by mouth 2 times daily. VITAMIN B COMPLEX & VIT C NO.3 (VITAMIN B COMP & C NO.3 ORAL) Take 1 mg by mouth. valACYclovir (VALTREX) 1 g tablet Take 1,000 mg by mouth as needed. aspirin 81 mg EC tablet Take 81 mg by mouth daily. rosuvastatin (CRESTOR) 10 mg tablet Take 10 mg by mouth every evening. naratriptan (AMERGE) 2.5 mg tablet Take 2.5 mg by mouth as needed. Take one (1) tablet at onset of headache; if returns or does not resolve, may repeat after 4 hours; do not exceed five (5) mg in 24 hours. polyethylene glycol (MIRALAX) 17 gram packet Take 17 g by mouth as needed. albuterol (PROVENTIL HFA;VENTOLIN HFA) 90 mcg/Actuation inhaler Inhale 2 puffs into the lungs every 4 hours as needed. Use with spacer omeprazole (PRILOSEC) 20 mg capsule Take 20 mg by mouth daily. documented as of this encounter Plan of Treatment Upcoming Encounters Date Type Department Care Team (Late st Contact Info) Description 07/09/2024 10:00 AM EDT Hospital Encounter [place] [address] Arrived documented as of this encounter Procedures Procedure Name Priority Date/Time Associated Diagnosis Comments PRO ICD INTERROGATION REMOTE UP TO 90 DAYS Routine 02/16/2024 7:37 PM EDT documented in this encounter Results * Cardiac Device Check - Remote (02/16/2024 7:37 PM EDT) Anatomical Region Laterality Modality Other 02/16/2024 7:37 PM EDT Jonathan Willson MD IMPLANTABLE CARDIAC DEVICE documented in this encounter Visit Diagnoses Not on filedocumented in this encounter Care Teams Sueding Machine Tender Relationship Specialty Start Date End Date Edie Ellis MD [address] [place] [address] [address] [place] [address] PCP - General 10/15/10 documented as of this encounter
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
--- OUTSIDE RECORDS SUMMARY | 2024-06-03 00:22 | XMS_ITS | Encounter Summary ---
Author Organization [facility] [place] [address] Care Team Providers Care Online Merchandising Coordinator Name Role Phone Edie Ellis MD Primary Care Provider [phone] Encounter Details Date Type Department Care Team (Latest Contact Info) Description 03/09/2024 Travel Social History Tobacco Use Types Packs/Day [...] AM EDT Hospital Encounter Non-Invasive [place] [phone] Arrived documented as of this encounter Visit Diagnoses Not on filedocumented in this encounter Care Teams Online Merchandising Coordinator Relationship Specialty Start Date End Date Edie Ellis MD [address] [facility] [address] [place] [address] PCP - General 10/15/10 documented as of this encounter
--- OUTSIDE RECORDS SUMMARY | 2024-06-03 00:22 | XMS_ITS | Encounter Summary ---
Author Organization [facility] [place] [address] Care Team Providers Care Hot Die Press Operator Name Role Phone Edie Ellis MD Primary Care Provider [phone] Encounter Details Date Type Department Care Team (Late st Contact Info) Description 02/08/2024 Telephone Cardiology at [address] [phone] Andreina Gardner Social History Tobacco Use Types Packs/Day Years [...] AM EST documented as of this encounter Miscellaneous Notes * Telephone Encounter - Andreina Gardner - 02/08/2024 10:23 AM EDT Jammie would like a call back to discuss what she should do moving forward - see 01/29/24 Tammy Casarez she would speak to Dr. Willson. documented in this encounter Plan of Treatment Upcoming Encounters Date Type Department Care Team (Late st Contact Info) Description 07/09/2024 10:00 AM EDT Hospital Encounter Non-[place] [address] Arrived documented as of this encounter Visit Diagnoses Not on filedocumented in this encounter Care Teams Hot Die Press Operator Relationship Specialty Start Date End Date Edie Ellis MD [address] [place] [address] PCP - General 10/15/10 documented as of this encounter
--- OUTSIDE RECORDS SUMMARY | 2024-06-03 00:23 | XMS_ITS | Encounter Summary ---
Author Organization [facility] [place] [address] Care Team Providers Care Chief Physical Therapist Name Role Phone Edie Ellis MD Primary Care Provider [phone] Encounter Details Date Type Department Care Team (Late st Contact Info) Description 07/24/2023 9:30 AM EDT Office Visit Cardiology at [address] [address] Tila Elmore RN SQ ICD, [employer], single lead Social History Tobacco Use Types Packs/Day Years Used Date Smoking Tobacco: Former Cigarettes 1 - 08/2022 Smokeless Tobacco: Never Comments:no more than 5 a da y - 01/02/2022 Alcohol Use Standard Drinks/Week Comments Yes 0 (1 standard drink = 0.6 oz pur e alcohol) rarely Sex and Gender Information Value Date Recorded Sex Assigned at Female 10/05/2021 11:32 AM EST Gender Identity Female 10/05/2021 11:32 AM EST Sexual Orientation Straight 10/05/2021 11 :32 AM EST documented as of this encounter Last Filed Vital Signs Vital Sign Reading Time Taken Comments Blood Pressure 105/69 07/24/2023 9:19 AM EDT Pulse 102 07/24/2023 9:19 AM EDT Temperature - - Respiratory Rate - - Oxygen Saturation 98% 07/24/2023 9:19 AM EDT Inhaled Oxygen Concentration - - Weight 92.9 kg (204 lb 11.2 oz) 07/24/2023 9:19 AM EDT Height 162.6 cm (5' 4) 07/24/2023 9:19 AM EDT Body Mass Index 35.14 07/24/2023 9:19 AM EDT documented in this encounter Progress Notes * Tila Elmore RN - 07/24/2023 9:30 AM EDT Images from the original note were not included. Clinical Electrophysiology Device Service Note Jammie Gottlieb [id number] 07/24/2023 History: 48 y.o. female with a history of non-ischemic cardiomyopathy with known TTN gene, HTN, DM2, syncope, EF 42%, ICD implanted for primary prevention on 07/15/2023. Presents today for 10 day evaluation. Denies any issues. States she is less sore. Device Interrogation: Data Device Model#: A219 EMBLEM??? MRI S-ICD Alerts None Diagnostics Therapy: ON Therapy: ON Shock Zone: 240 bpm Shock Zone: 240 bpm Conditional Shock Zone: 200 bpm Conditional Shock Zone: 200 bpm Post Shock Pacing: ON Post Shock Pacing: ON SMART Pass: ON System Impedance = 70 Ohms AF Monitor 07/15/2023 - 07/24/2023 Days with measured AF: 0 Days Estimate of measured AF: 0% Untreated Episodes: 0 Untreated Episodes: 0 Treated Episodes: 0 Treated Episodes: 0 # of Shocks Delivered: 0 Battery 100% Comments: -Incision is healing, some areas of redness noted. Site cleaned with NS, new mepilex applied. Second site above xiphoid process had some areas requiring bacitracin. Site cleaned w NS, new bandage applied. Patient will call if sites worsen. - Device is functioning appropriately - Programming changes None - Follow up: in clinic in 90 days, will continue to utilize remote monitoring Tila Elmore RN Attending MD Pereyra 07/24/2023 documented in this encounter Plan of Treatment Upcoming Encounters Date Type Department Care Team (Late st Contact Info) Description 07/09/2024 10:00 AM EDT Hospital Encounter Non-[place] [address] Arrived documented as of this encounter Visit Diagnoses Diagnosis SQ ICD, [employer], single lead documented in this encounter Care Teams Chief Physical Therapist Relationship Specialty Start Date End Date Edie Ellis MD [facility] [address] [place] [address] PCP - General 10/15/10 documented as of this encounter
--- OUTSIDE RECORDS SUMMARY | 2024-06-03 00:23 | XMS_ITS | Encounter Summary ---
Author Organization [facility] Address [facility] [place] [address] Care Team Providers Care Laboratory Chemical Assistant Name Role Phone Edie Ellis MD Primary Care Provider Encounter Details Date Type Department Care Team (Late st Contact Info) Description 08/07/2023 8:36 AM EDT Anesthesia Event [place] [address] Saundra Smith MD [facility] [place] [address] Coty Magallon MD [facility] DR [place] [address] Anesthesia Record Procedure Summary Procedure Name Responsible Anesthesiologist Anesthesia Start Time Anesthesia Stop Time ELECTROPHYSIOLOGY PROCEDURE Saundra Smith MD 08/07/23 0836 08/07/23 0908 Events Date Time Event Comment 08/07/2023 0832 0836 AN Verify 0836 Start 0836 An Start Data 0844 Anesthesia Ready 0904 an stop data 0907 Recovery or ICU Handoff Alize ent care was transferred to the destination unit staff after review of the patient's medical history, current anesthetic/surgical status and plan, according to the Provider Handoff Checklist. 0908 Stop Meds Name Total Midazolam 2 mg fentaNYL 75 mcg Propofol 200 mg Propofol INF 101.75 mg meTOPROLOL (LOPRESSOR) injection 5 mg * Agents Name O2 * Blood No blood administrations on file. Lines, Drains, and Airways Type Details Placement Removal Incision 07/07/22; 1309; Left , lateral; thigh 07/07/22 1309 by Manohar Bacon RN Incision 07/14/23; 0805; lowe r; sternal; horizontal; lead puncture site 07/14/23 0805 by Alecia Clark RN Incision 07/14/23; 0805; Left , upper; flank; horizontal; device pocket 07/14/23 0805 by Alecia Clark RN documented in this encounter Social History Tobacco Use Types Packs/Day Years Used Date Smoking Tobacco: Former Cigarettes 1 - 08/2022 Smokeless Tobacco: Never Comments:no more than 5 a da y - 01/02/2022 Alcohol Use Standard Drinks/Week Comments Yes 0 (1 standard drink = 0.6 oz pur e alcohol) rarely IPV Inpatient Questions Answer Date Recorded Does [...] AM EST documented as of this encounter OR Notes * Anesthesia Postprocedure Evaluation - Saundra Smith MD - 08/07/2023 10:05 AM EDT Department of Anesthesiology Post-procedure Note Patient: Jammie Gottlieb Procedure Summary Date: 08/07/23 Room / Location: EP B-LAB ROOM 4 / [facility] EP LABS Anesthesia Start: 835 Anesthesia Stop: 907 Procedure: ELECTROPHYSIOLOGY PROCEDURE Diagnosis: Dilated cardiomyopathy (Dilated cardiomyopathy [I42.0]) Providers: Jonathan Willson MD Responsible Provider: Saundra Smith MD Anesthesia Type: MAC ASA Status: 3 All Anesthesia Providers: Anesthesiologist: Saundra Smith MD Instrument Installer: Coty Magallon MD Vitals Value Taken Time BP 98/82 08/07/23 0945 Temp 36.1 ??C (97 ??F) 08/07/23 0904 Pulse 88 08/07/23 0957 Resp 21 08/07/23 0957 SpO2 96 % 08/07/23 1003 Pain Level 0 08/07/23 0945 Vitals shown include unvalidated device data. Patient Location: PACU/[facility] Level of Consciousness: Awake and Alert Pain Management: Satisfactory Analgesia PONV: None Cardiovascular Status: At Baseline and Hemodynamically Stable Respiratory Status: At Baseline and Room Air Postoperative Fluid Status: Intravascular EUvolemia Possible Anesthetic Complications: NONE apparent at time of evaluation Final Primary Anesthesia Type: MAC (The anesthetic type performed was the same as planned.) Comments: Saundra Smith MD * Anesthesia Preprocedure Evaluation - Saundra Smith MD - 08/06/2023 1:17 PM EDT Pre-Anesthesia Evaluation for: Jammie Gottlieb a 48 y.o. female. Procedure(s): ELECTROPHYSIOLOGY PROCEDURE Patient Active Problem List Diagnosis Date Noted ??? SQ ICD, [employer], single lead 07/15/2023 ??? HFrEF (heart failure with reduced ejection fraction) 07/14/2023 ??? Chronic pain in right shoulder 07/03/2023 ??? T2DM 06/09/2021 ??? Essential hypertension 06/09/2021 ??? Syncope 06/09/2021 ??? Post laminectomy syndrome 03/20/2015 ??? Cardiomyopathy 03/30/2014 ??? Atrial fibrillation 03/30/2014 ??? Lumbar radiculopathy 12/08/2011 Past Medical History: Diagnosis Date ??? Allergy pennicillin sulfer ??? Anxiety ??? 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 Diabetes mellitus ??? Elevated cholesterol ??? Headache(784.0) migraine 1/2 month ??? Hypercholesterolemia ??? Hypertensive disease ??? Lumbar radiculopathy ??? Mental or behavioral problem ??? T2DM 06/09/2021 Past Surgical History: Procedure Laterality Date ??? SECTION ??? LUMBAR LAMINECTOMY ??? PRO PERCUT IMPLNT NEUROELECT, EPIDURAL 06/03/2012 PERC IMPLANTATION NEUROSTIMULATOR ELECTRODE ARRAY, EPIDURAL performed by CARINE CHATTERJEE at [facility] MAIN OR ??? PRO UNLISTED PROCEDURE, MUSCULOSKELETAL SYSTEM, GENERAL 04/26 L4- L5? disk surgery ??? PRO UNLISTED PX FEMALE GEN SYS 09/15/00 02/17/10 c-sections Social History Tobacco Use ??? Smoking status: Former Years: 3.00 Types: Cigarettes Quit date: 08/2022 Years since quittin.9 ??? Smokeless tobacco: Never ??? Tobacco comments: no more than 5 a day - 01/02/2022 Substance Use Topics ??? Alcohol use: Yes Comment: rarely Social History Substance and Sexual Activity Drug Use No Allergies Allergen Reactions ??? Penicillins Anaphylaxis Other reaction(s): throat closes ??? Sulfa (Sulfonamide Antibiotics) Hives Other reaction(s): Hives Medications: MAR and/or home medications have been reviewed. Physical Exam: Preprocedure Vitals Current as of 08/06/23 1317 No BP, pulse, respiration, SpO2, or temperature recorded. Height: Weight: BMI: IBW: Airway Assessment: Mallampati: II TM distance: >3 FB Neck ROM: full Cardiovascular Assessment: system normal Pulmonary Assessment: unlabored breathing Dental Assessment: Misc Assessment: Last Filed Perioperative Cognitive Screening None Anesthesia Plan: ASA 3 MAC, with a(n) intravenous induction Jammie Gottlieb is a 48 y.o. female (body mass index 34) with Dilated cardiomyopathy presenting forelectrophysiology procedure. PMHx: A-fib, T2DM, HTN, syncope related to cardiomyopathy s/p ICD placement, HFrEF (Genetic mutation with TTN gene), Lumbar radiculopathy s/p lami Meds: Aspirin, clindamycin, clonazepam, dapagliflozin, dilaudid, metformin, prilosec, Entresto Allergies: -- Penicillins -- Anaphylaxis -- Other reaction(s): throat closes -- Sulfa (Sulfonamide Antibiotics) -- Hives -- Other reaction(s): Hives EK08/03/2023 sinus tachycardia Echo: 03/2023 TTE EF 42% Anesthesia Hx: 06/2023 GA with ETT size 7, no complications Labs (reviewed): 06/2023 unremarkable Plan is for VIRGINIE Magallon MD 08/06/2023 Region - Other Informed Consent: Anesthetic plan and risks discussed with patient. Plan discussed with resident. Anesthesia Screening documented in this encounter Plan of Treatment Upcoming Encounters Date Type Department Care Team (Late st Contact Info) Description 07/09/2024 10:00 AM EDT Hospital Encounter Non-[place] [address] Arrived documented as of this encounter Visit Diagnoses Not on filedocumented in this encounter Administered Medications Inactive Administered Medications - up to 3 most recent administrations Medication Order MAR Action Action Date Dose Rate Site fentaNYL (pf) (50 mcg/mL) multi-dose injection Intravenous, PRN, Starting on Thu08/07/23 at 0846, Until Thu08/07/23 at 0916, Anesthesia Intra-op, Routine Given 08/07/2023 8:49 AM EDT 25 mcg Given 08/07/2023 8:46 AM EDT 25 mcg Given 08/07/2023 8:40 AM EDT 25 mcg metoprolol (LOPRESSOR) injection Intravenous, PRN, Starting on Thu08/07/23 at 0857, Until Thu08/07/23 at 0916, Anesthesia Intra-op, Routine Given 08/07/2023 8:57 AM EDT 5 mg midazolam (pf) (Versed) (1 mg/mL) multi-dose injection Intravenous, PRN, Starting on Thu08/07/23 at 0832, Until Thu08/07/23 at 09, Anesthesia Intra-op, Routine Given 08/07/2023 8:32 AM EDT 2 mg propofoL (Diprivan) (10 mg/mL) infusion Intravenous, CONTINUOUS PRN, Starting on Thu08/07/23 at 0837, Until Thu08/07/23 at 0916, Anesthesia Intra-op, Routine Rate/Dose Change 08/07/2023 8:49 AM EDT 100 mcg/kg/min 55.5 mL/hr New Bag 08/07/2023 8:37 AM EDT 50 mcg/kg/min 27.75 mL/h r propofoL (Diprivan) 10 mg/mL bolus injection (Anesthesia) Intravenous, PRN, Starting on Thu08/07/23 at 0838, Until Thu08/07/23 at 0916, Anesthesia Intra-op Given 08/07/2023 8:45 AM EDT 100 mg Given 08/07/2023 8:38 AM EDT 100 mg documented in this encounter Care Teams Laboratory Chemical Assistant Relationship Specialty Start Date End Date Edie Ellis MD [address] [place] [address] PCP - General 10/15/10 documented as of this encounter
--- OUTSIDE RECORDS SUMMARY | 2024-06-03 00:23 | XMS_ITS | Encounter Summary ---
Author Organization [facility] Address [facility] [place] [address] Care Team Providers Care Health Coach Name Role Phone Edie Ellis MD Primary Care Provider [phone] Encounter Details Date Type Department Care Team (Late st Contact Info) Description 01/29/2024 4:00 PM EST Office Visit Cardiology at [address] [address] Andreina Schneider, [employer] [facility] [place] [address] SQ ICD, [employer], single lead; HFrEF (heart failure with reduced ejection fraction) Social History Tobacco Use Types Packs/Day Years [...] Sign Reading Time Taken Comments Blood Pressure 112/74 01/29/2024 4:01 PM EST Pulse 75 01/29/2024 4:01 PM EST Temperature - - Respiratory Rate - - Oxygen Saturation 100% 01/29/2024 4:01 PM EST Inhaled Oxygen Concentration - - Weight 86.6 kg (191 lb) 01/29/2024 4:01 PM EST Height 162.6 cm (5' 4) 01/29/2024 4:01 PM EST Body Mass Index 32.79 01/29/2024 4:01 PM EST documented in this encounter Progress Notes * Andreina Schneider APRN - 01/29/2024 4:00 PM EST Images from the original note were not included. Cardiac Device Interrogation Jammie Gottlieb [id number] 01/28/2024 History: 48 y.o. female with a history of non-ischemic cardiomyopathy with known TTN gene, HTN, DM2, syncope, EF 42%, subcutaneous ICD implanted for primary prevention on 07/14/[address] Willson. She presents in EP clinic today for device follow up, and question about an ECG. She follows with Kina Awad APRN in heart failure, and is overdue. 1) Her left flank SQ-ICD device has been bothering her, it never really settled into place like she thought it would. She claims it sticks out and can move, sticking further out if she lies on her side. She can get her fingers under the edge. (See photos below). She has lost 35 pounds and her A1c is 5.6% now, no longer diabetic, so she thinks her wound healingis better. She had previous infection at the device and lead sites and was treated with clindamycin. Device Interrogation: Lead and Generator Data: from implant 07/14/23 Piercing Specialist Model # Serial # Generator [employer] [id number] Ventricular Lead [employer] [id number] Data: Impedance (ohms) Shock (10J) 87 Programming: Rate Detection enhancements First shock energy Shock zone 240 - 80J x 5 Conditional shock zone: 200 INSIGHT 80J x 5 Defibrillation Testing: Attempted but unable to induce ventricular fibrillation. Defibrillation Testing reattempted 08/07/23 and unable to induce ventricular fibrillation, system impedance stable. Settings AF monitor: ON Conditional shock zone: 200 bpm Shock zone: 240 bpm Sensing configuration: Primary Battery and Leads Battery status: 95% Electrode impedance: 90 ohms 2) She had a recent hospitalization in [place] in December, for depression with some medication changes (wellbutrin was increased to 450 mg daily, lamotrigine was increased to 200 mg daily, and duloxetine was discontinued). She was noted to have QTc prolongation. Reviewed ECGs in Media section. 01/02/24 SR 77 bpm, QTc 441 ms 01/14/24 SR 76 bpm, QTc 465 ms. 01/21/24 SR 93 bpm, QTc 507 ms ECG today shows SR 75 bpm, VT 168 ms, QRS 78 ms, QT 426 ms, QTc 475 ms. Comments: - Pocket incision is well healed without signs or symptoms of infection - Discussed potential device pocket revision, which may be discouraged due to previous infection, and that to try an abdominal binder for support in the interim. Will relay to Dr. Willson. - Device is functioning appropriately - Programming changes Interrogation only - QTc improving, 475 ms on today's ECG. - Discussed importance of measurement of the QTc and if prolonged can precipitate ventricular arrhythmias, which if sustained, she could receive an ICD shock. QTc prolongation can often occur with many types of drugs, specifically some antidepressants, antibiotics, antifungals, antiemetics, antianxiety,. - Per additional review through [employer] joe for longQTc syndrome and QT drug interactions- wellbutrin and lamotrigine do not fit into specific risk categories, but that should not be construedas carrying no risk. - Follow up: SQ-ICD remote checks as scheduled (weekly), and in clinic yearly. Will forward to Dr. Willson for his review. Andreina Schneider APRN 01/29/24 Pager: [phone] documented in this encounter Plan of Treatment Upcoming Encounters Date Type Department Care Team (Late st Contact Info) Description 07/09/2024 10:00 AM EDT Hospital Encounter Non[place] [address] Arrived documented as of this encounter Procedures Procedure Name Priority Date/Time Associated Diagnosis Comments EKG 12-LEAD Routine 01/29/2024 4:11 PM EST SQ ICD, [employer], single lead HFrEF (heart failure with reduced ejection fraction) documented in this encounter Results * EKG 12 Lead (01/29/2024 4:11 PM EST) Ventricular rate 75 BPM MUSE SYSTEM Atrial Rate 75 BPM MUSE SYSTEM P-R Interval 168 ms MUSE SYSTEM QRS Duration 78 ms MUSE SYSTEM Q-T Interval 426 ms MUSE SYSTEM QTC Calculated (Bezet) 475 ms MUSE SYSTEM Calculated P [place] 34 degrees MUSE SYSTEM Calculated R [place] 23 degrees MUSE SYSTEM Calculated T [place] 48 degrees MUSE SYSTEM INTERPRETATION Normal sinus rhythm Low voltage QRS Cannot rule out Septal infarct , age undetermined Abnormal ECG When compared with ECG of 03-AUG-2023 13:57, Vent. rate has decreased BY ??39 BPM Questionable change in initial forces of Septal leads Confirmed by Rohini GROVER, [facility] ([id number]) on 01/30/2024 1:33:36 PM MUSE SYSTEM 01/29/2024 4:11 PM EST 01/30/2024 1:33 PM EST Andreina Schneider APRN ECG ORDERABLES MUSE SYSTEM documented in this encounter Visit Diagnoses Diagnosis SQ ICD, [employer], single lead HFrEF (heart failure with reduced ejection fraction) documented in this encounter Care Teams Health Coach Relationship Specialty Start Date End Date Edie Ellis MD [facility] [address] [place] [address] PCP - General 10/15/10 documented as of this encounter
--- OUTSIDE RECORDS SUMMARY | 2024-06-03 00:23 | XMS_ITS | Encounter Summary ---
[place] [address] Care Team Providers Care Space Systems Operations Superintendent Name Role Phone Edie Ellis MD Primary Care Provider [phone] Encounter Details Date Type Department Care Team (Latest Contact Info) Description 01/11/2024 10:00 AM EST - 01/11/2024 11:59 PM EST Hospital Encounter [place] [address] Discharge Disposition: Home Social History Tobacco Use [...] Sig Dispensed Refills Start Date End Date clindamycin (Cleocin) 150 mg capsuleIndications:ICD (implantable cardioverter-defibrill ator), single, in situ,Skin wound from surgical incision [...] by mouth daily. sacubitriL-valsartan (Entresto) 97-103 mg tabletIndications:HFrE F (heart failure with reduced ejection fraction) Take [...] a day 03/12/2015 naloxone (Narcan) 4 mg/actuation Edison, Non-Aerosol Once 03/10/2019 magnesium oxide (MAG-OX) 400 [...] capsule Take 20 mg by mouth daily. bupropion HCl (WELLBUTRIN ORAL) Take 450 mg by mouth 2 times daily. 01/29/2024 documented as of this encounter Plan of Treatment Upcoming Encounters Date Type Department Care Team (Late st Contact Info) Description 07/09/2024 10:00 AM EDT Hospital Encounter [place] [address] Arrived documented as of this encounter Procedures Procedure Name Priority Date/Time Associated Diagnosis Comments PRO ICD INTERROGATION REMOTE UP TO 90 DAYS Routine 12/01/2023 2:40 PM EST documented in this encounter Results * Cardiac Device Check - Remote (12/01/2023 2:40 PM EST) Anatomical Region Laterality Modality Other 12/01/2023 2:40 PM EST Jonathan Willson MD IMPLANTABLE CARDIAC DEVICE documented in this encounter Visit Diagnoses Not on filedocumented in this encounter Care Teams Space Systems Operations Superintendent Relationship Specialty Start Date End Date Edie Ellis MD [address] [place] [address] PCP - General 10/15/10 documented as of this encounter
--- OUTSIDE RECORDS SUMMARY | 2024-06-03 00:23 | XMS_ITS | Encounter Summary ---
Author Organization [facility] [place] [address] Care Team Providers Care Suppression Crew Leader Name Role Phone Edie Ellis MD Primary Care Provider [phone] Reason for Visit * Auth/Cert (Routine) Specialty Diagnoses / Procedures Referred By Geraldine t Referred To Contact Diagnoses Cardiomyopathy, unspecified type [I42.9]Syncope, unspecified syncope type [R55]Family history of sudden cardiac [Z82.41] Procedures ELECTROPHYSIOLOGY PROCEDURE Jonathan Willson MD [facility] [place] [address] [facility] Referral ID Status Reason Start Date Expiration Date Visits Re quested Visits Authorized [id number] 1 1 Encounter Details Date Type Department Care Team (Late st Contact Info) Description 07/14/2023 7:43 AM EDT Anesthesia Event [place] [address] Sae Morel MD [facility] [place] [address] Anesthesia Record Procedure Summary Procedure Name Responsible Anesthesiologist Anesthesia Start Time Anesthesia Stop Time ELECTROPHYSIOLOGY PROCEDURE Sae Morel MD 07/14/23 0743 07/14/23 1055 Events Date Time Event Comment 07/14/2023 0743 Start 0746 AN Verify 0746 An Start Data 0758 Quick Note Pre-induction x -rays 0814 An Induction 0818 An Intubation 0821 Anesthesia Ready 0847 Procedure Start 0902 Break/Relief In I assumed ca re for Break Relief before which we: 1. Identified the patient 2. Identified the responsible provider(s) 3. Reviewed the pertinent medical history 4. Discussed the surgical plan and course 5. Reviewed intra-op anesthesia management and issues during anesthesia 6. Set expectations for the relief (and/or post-procedure) period 7. Allowed opportunity for questions and acknowledgement of understanding Yessi Gautam, BUILDING ENERGY RETROFIT TECHNICIAN 0919 Break/Relief Out 0949 AN Defib 10 J via ICD 0952 Quick Note Attempted to in duce v-fib via ICD, unsuccessful. Vitals stable throughout. 1036 Extubation/LMA Out Patient t aking adequate tidal volumes (>300ml), respiratory rate regular (10-14). Opens eyes to command. Oropharynx suctioned, ETT removed, spontaneous ventilations maintained. 1041 an stop data 1054 Recovery or ICU Handoff Alize ent care was transferred to the destination unit staff after review of the patient's medical history, current anesthetic/surgical status and plan, according to the Provider Handoff Checklist. 1055 Stop Patient brought to recovery with 6L/min O2 via face mask. Spontaneous ventilations maintained. Patient opening eyes to voice, resting comfortably. 07/15/2023 0922 Meds Name Total Midazolam 2 mg fentaNYL 100 mcg IV Lidocaine 100 mg Propofol 350 mg Rocuronium 10 mg PHENYLephrine 560 mcg Ondansetron 8 mg vancomycin (Vancocin) 1.5 gram in sodium chloride 0.9% 500 mL infusion 0 g Succinylcholine 100 mg Propofol INF 1,160.22 mg lactated ringers infusion 900 mL * Agents Name O2 * Blood No blood administrations on file. Lines, Drains, and Airways Type Details Placement Removal Incision 07/07/22; 1309; Left , lateral; thigh 07/07/22 1309 by Manohar Bacon RN Incision 07/14/23; 0805; lowe r; sternal; horizontal; lead puncture site 07/14/23 0805 by Alecia Clark, CHARLY Incision 07/14/23; 0805; Left , upper; flank; horizontal; device pocket 07/14/23 0805 by Alecia Clark, RN (RETIRED) Peripheral IV Line - Single Lumen 07/14/23; 0701; cephalic vein (lateral side of arm), left; 20 gauge; distraction, intradermal injection, tolerated well; removed per physician, removed per policy/procedure, catheter/device intact; 07/15/23; 10507/14/23 0701 by Nesha Vargas RN 07/15/23 1059 by Donna Lemus, RN ETT Mask Ventilation: Ea sy (1); ETT Type: Oral, Cuffed; ETT Size: 7 mm; Mac Blade: 3; Notes: Asleep, Pre-O2, Stylette; Attempts: 1; Laryngoscopy Grade: 1; ETT Placement Verified By: Capnometry, Auscultation; Secured at Teeth: 20 cm; Inserted by: Willie Pittman CRNA; Removal Date: 07/14/23; Removal Time: 10307/14/23 0818 by Michelle Pittman CRNA 07/14/23 103 by Michelle Pittman CRNA (RETIRED) Peripheral IV Line - Single Lumen 07/14/23; 08; dorsal arch vein (top of hand), right; [id number] catheter system; 18 gauge; MD Jack; removed per physician, removed per policy/procedure, catheter/device intact; 07/15/23; 10507/14/23 08 by Michelle Pittman CRNA 07/15/23 105 by Donna Lemus, RN documented in this encounter Social History [...] OR Notes * Anesthesia Postprocedure Evaluation - Sae Morel MD - 07/14/2023 11:02 AM EDT Department of Anesthesiology Post-procedure Note Patient: Jammie Gottlieb Procedure Summary Date: 07/14/23 Room / Location: [facility] A-LAB ROOM 3 / [facility] EP LABS Anesthesia Start: 742 Anesthesia Stop: 1054 Procedure: ELECTROPHYSIOLOGY PROCEDURE Diagnosis: Cardiomyopathy, unspecified type Syncope, unspecified syncope type Family history of sudden cardiac (Cardiomyopathy, unspecified type [I42.9]Syncope, unspecified syncope type [R55]Family history of sudden cardiac [Z82.41]) Providers: Jonathan Willson MD Responsible Provider: Sae Morel MD Anesthesia Type: general ASA Status: 3 All Anesthesia Providers: Anesthesiologist: Sae Morel MD BUILDING ENERGY RETROFIT TECHNICIAN: Michelle Pittman CRNA Vitals Value Taken Time BP 110/74 07/14/23 1200 Temp 36.3 ??C (97.3 ??F) 07/14/23 1051 Pulse 84 07/14/23 1224 Resp 24 07/14/23 1224 SpO2 93 % 07/14/23 1224 Pain Level 6 07/14/23 1214 Vitals shown include unvalidated device data. Patient Location: PACU/[facility] Level of Consciousness: Conscious but Sleepy Pain Management: Satisfactory Analgesia PONV: None Cardiovascular Status: At Baseline and Hemodynamically Stable Respiratory Status: Stable Respiratory Status and Supplemental O2 (NC or FM) Postoperative Fluid Status: Intravascular EUvolemia Possible Anesthetic Complications: NONE apparent at time of evaluation Final Primary Anesthesia Type: General (The anesthetic type performed was the same as planned.) Comments: SAE MOREL MD * Anesthesia Preprocedure Evaluation - Sae Morel MD - 07/13/2023 6:39 PM EDT Pre-Anesthesia Evaluation for: Jammie levine 48 y.o. female. Procedure(s): ELECTROPHYSIOLOGY PROCEDURE Patient Active Problem List Diagnosis Date Noted Chronic pain in right shoulder 07/03/2023 T2DM 06/09/2021 Essential hypertension 06/09/2021 Syncope 06/09/2021 Post laminectomy syndrome 03/20/2015 Cardiomyopathy 03/30/2014 Atrial fibrillation 03/30/2014 Lumbar radiculopathy 12/08/2011 Past Medical History: Diagnosis Date Allergy pennicillin sulfer Anxiety Chronic pain left back and left leg arm sholder Diabetes mellitus Elevated cholesterol Headache(784.0) migraine 1/2 month Hypercholesterolemia Hypertensive disease Lumbar radiculopathy Mental or behavioral problem T2DM 06/09/2021 Past Surgical History: Procedure Laterality Date SECTION LUMBAR LAMINECTOMY PRO PERCUT IMPLNT NEUROELECT, EPIDURAL 06/03/2012 PERC IMPLANTATION NEUROSTIMULATOR ELECTRODE ARRAY, EPIDURAL performed by CARINE CHATTERJEE at [facility] MAIN OR PRO UNLISTED PROCEDURE, MUSCULOSKELETAL SYSTEM, GENERAL 04/26 L4- L5? disk surgery PRO UNLISTED PX FEMALE GEN SYS 09/15/00 02/17/10 c-sections Social History Tobacco Use Smoking status: Former Years: 3.00 Types: Cigarettes Quit date: 08/2022 Years since quittin.8 Smokeless tobacco: Never Tobacco comments: no more than 5 a day - 01/02/2022 Substance Use Topics Alcohol use: Yes Comment: rarely Social History Substance and Sexual Activity Drug Use No Allergies Allergen Reactions Penicillins Anaphylaxis Other reaction(s): throat closes Sulfa (Sulfonamide Antibiotics) Hives Other reaction(s): Hives Medications: MAR and/or home medications have been reviewed. Physical Exam: Preprocedure Vitals Current as of 07/13/23 1839 No BP, pulse, respiration, SpO2, or temperature recorded. Height: 162.6 cm (5' 4) (07/02/23) Weight: 92 kg (202 lb 12.8 oz) (07/02/23) BMI: 34.81 IBW: 54.7 kg (120 lb 10.7 oz) Airway Assessment: Mallampati: II TM distance: >3 FB Neck ROM: full Cardiovascular Assessment: Rhythm: regular Rate: normal Pulmonary Assessment: unlabored breathing Dental Assessment: Misc Assessment: Patient is wearing No contact(s). IV access: Peripheral line Last Filed Perioperative Cognitive Screening None Anesthesia Plan: ASA 3 general, with a(n) intravenous induction Region - Intrathoracic Cardiac Informed Consent: Anesthetic plan and risks discussed with patient and spouse. Use of blood products discussed with patient and spouse who consented to blood products. Plan discussed with BUILDING ENERGY RETROFIT TECHNICIAN. Attending Note: Jammie Gottlieb is a 48 y.o. 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 Notes that she was intubated without issue last fall for PNA(2 wk intubation, no residual pulmonary deficits per pt) NPO: Appropriate-- ROS positive for: nil METS: >4 Cardiac: No CP or SOB with 2 FOS exertion ECHO 04/14: LV mild global hypokinesis. The left ventricular ejection fraction is 42% by Mobley's biplane. Right ventricular function is probably normal. No significant valvular disease noted on this study. Compared with the prior TTE of 01/02/2022, LV systolic function has declined (prior EF 52%). Of note, the patient was tachycardiac at baseline (HR 105 bpm). Stress testing was canceled. Labs: Lab Results Component Value Date WBC 11.1 (H) 09/06/2021 HCT 45.1 09/06/2021 K 4.2 05/04/2023 CREATININE 0.8 05/04/2023 No results for input(s): ABORH in the last 7068 hours. Anesthestic Plan: Plan GETA, standard ASA monitors, PIV after discussion of benefits, indications, and risks (including but not limited to sore throat, dental injury, prolonged intubation, cardiac or neurologic event). Sae Morel MD Anesthesia Screening documented in this encounter Plan of Treatment Upcoming Encounters Date Type Department Care Team (Late st Contact Info) Description 07/09/2024 10:00 AM EDT Hospital Encounter Non-Invasive [place] [address] Arrived documented as of this encounter Visit Diagnoses Not on filedocumented in this encounter Administered Medications Inactive Administered Medications - up to 3 most recent administrations Medication Order MAR Action Action Date Dose Rate Site fentaNYL (pf) (50 mcg/mL) multi-dose injection Intravenous, PRN, Starting on Thu07/14/23 at 0900, Until Thu07/14/23 at 1053, Anesthesia Intra-op, Routine Given 07/14/2023 9:17 AM EDT 25 mcg Given 07/14/2023 9:05 AM EDT 50 mcg Given 07/14/2023 9:00 AM EDT 25 mcg lactated ringers infusion 1,000 mL, at 100 mL/hr, Intravenous, CONTINUOUS, Starting on Thu07/14/23 at 0700, Until Thu07/14/23 at 1153, Day of Surgery (Day of Procedure) New Bag 07/14/2023 7:43 AM EDT lidocaine (pf) (Xylocaine) (20 mg/mL) 2% injection syringe Intravenous, PRN, Starting on Thu07/14/23 at 0814, Until Thu07/14/23 at 1102, Anesthesia Intra-op, Routine Given 07/14/2023 8:14 AM EDT 100 mg midazolam (pf) (Versed) (1 mg/mL) multi-dose injection Intravenous, PRN, Starting on Thu07/14/23 at 0743, Until Thu07/14/23 at 1102, Anesthesia Intra-op, Routine Given 07/14/2023 7:43 AM EDT 2 mg ondansetron (pf) (Zofran) (2 mg/mL) injection Intravenous, PRN, Starting on Thu07/14/23 at 1013, Until Thu07/14/23 at 1102, Anesthesia Intra-op, Routine Given 07/14/2023 10:13 AM EDT 8 mg PHENYLephrine in NS (PF) (BENI-SYNEPHRINE) 0.8 mg/10 mL (80 mcg/mL) multi-dose injection Syringe Intravenous, PRN, Starting on Thu07/14/23 at 0846, Until Thu07/14/23 at 1102, Anesthesia Intra-op, Routine Given 07/14/2023 10:01 AM EDT 160 mcg Given 07/14/2023 9:40 AM EDT 160 mcg Given 07/14/2023 9:28 AM EDT 80 mcg propofoL (Diprivan) (10 mg/mL) infusion Intravenous, CONTINUOUS PRN, Starting on Thu07/14/23 at 0821, Until Thu07/14/23 at 1053, Anesthesia Intra-op, Routine Rate/Dose Change 07/14/2023 10:04 AM EDT 50 mcg/kg/min 28.53 mL/hr Rate/Dose Change 07/14/2023 9:34 AM EDT 100 mcg/kg/min 57. 06 mL/hr Rate/Dose Change 07/14/2023 9:22 AM EDT 125 mcg/kg/min 71. 325 mL/hr propofoL (Diprivan) 10 mg/mL bolus injection (Anesthesia) Intravenous, PRN, Starting on Thu07/14/23 at 0814, Until Thu07/14/23 at 1053, Anesthesia Intra-op Given 07/14/2023 10:24 AM EDT 50 mg Given 07/14/2023 10:21 AM EDT 50 mg Given 07/14/2023 10:15 AM EDT 30 mg rocuronium (Zemuron) (10 mg/mL) multi-dose injection Intravenous, PRN, Starting on Thu07/14/23 at 0814, Until Thu07/14/23 at 1102, Anesthesia Intra-op, Routine Given 07/14/2023 8:14 AM EDT 10 mg succinylcholine (Anectine;Quelicin) (20 mg/mL) injection Intravenous, PRN, Starting on Thu07/14/23 at 0816, Until Thu07/14/23 at 1102, Anesthesia Intra-op, Routine Given 07/14/2023 8:16 AM EDT 100 mg documented in this encounter Care Teams Suppression Crew Leader Relationship Specialty Start Date End Date Edie Ellis MD [address] [place] [address] PCP - General 10/15/10 documented as of this encounter
--- OUTSIDE RECORDS SUMMARY | 2024-06-03 00:23 | XMS_ITS | Encounter Summary ---
Author Organization [place] [address] Care Team Providers Care Hemmer Automatic Name Role Phone Edie Ellis MD Primary Care Provider [phone] Encounter Details Date Type Department Care Team (Late st Contact Info) Description 08/03/2023 1:30 PM EDT Office Visit Cardiology at [address] [address] Tila Elmore RN SQ ICD, [employer], single lead Social History Tobacco Use [...] Sign Reading Time Taken Comments Blood Pressure 115/76 08/03/2023 1:30 PM EDT Pulse 117 08/03/2023 1:30 PM EDT Temperature 37 ??C (98.6 ??F) 08/03/2023 1:30 PM EDT Respiratory Rate 18 08/03/2023 1:30 PM EDT Oxygen Saturation 96% 08/03/2023 1:30 PM EDT Inhaled Oxygen Concentration - - Weight 92.1 kg ( lb 1.6 oz) 08/03/2023 1:30 P M EDT Height 162.6 cm (5' 4) 08/03/2023 1:30 PM EDT Body Mass Index 34.86 08/03/2023 1:30 PM EDT documented in this encounter Progress Notes * Tila Elmore RN - 08/03/2023 1:30 PM EDT Images from the original note were not included. Clinical Electrophysiology Device Service Note Jammie Gottlieb [id number] 08/03/2023 History: 48 y.o. female with a history of non-ischemic cardiomyopathy with known TTN gene, HTN, DM2, syncope, EF 42%, ICD implanted for primary prevention on 07/15/2023. Presents today for follow up on implant sites. Patient was seen at urgent care last week for signs of infection, clindamycin ordered, last dose ordered taken today. Patient has been taking tylenol and ibuprofen, temp currently 98.6, HR 116. ANNE Miller assessed sites today, EKG ordered. Device Interrogation: Data Device Model#: A219 EMBLEM??? MRI S-ICD Alerts None Diagnostics Therapy: ON Therapy: ON Shock Zone: 240 bpm Shock Zone: 240 bpm Conditional Shock Zone: 200 bpm Conditional Shock Zone: 200 bpm Post Shock Pacing: ON Post Shock Pacing: ON SMART Pass: ON System Impedance = 65 Ohms AF Monitor 07/24/2023-08/03/2023 Days with measured AF: 0 Days Estimate of measured AF: 0% Untreated Episodes: 0 Untreated Episodes: 0 Treated Episodes: 0 Treated Episodes: 0 # of Shocks Delivered: 0 Battery 100% Comments: -Device site has small area that has been bleeding, currently not. Area is more open than evaluation on 07/24. Upper abdominal site is more open than assessed on 07/24. Granulation present and redness along perimeter of wound. Sites cleaned w iodine and steristrips placed on both sites. Clindamycin re-ordered for second course. Patient will be seen in EP on Tuesday 08/07. - Device is functioning appropriately - Programming changes None - Follow up: in clinic in 90 days, will continue to utilize remote monitoring Tila Elmore RN and ANNE Morales Attending MD Pereyra 08/03/2023 documented in this encounter Plan of Treatment Upcoming Encounters Date Type Department Care Team (Late st Contact Info) Description 07/09/2024 10:00 AM EDT Hospital Encounter Non-Invasive [place] [address] Arrived documented as of this encounter Procedures Procedure Name Priority Date/Time Associated Diagnosis Comments EKG 12-LEAD Routine 08/03/2023 1:57 PM EDT documented in this encounter Results * EKG 12 Lead (08/03/2023 1:57 PM EDT) Ventricular rate 114 BPM MUSE SYSTEM Atrial Rate 114 BPM MUSE SYSTEM P-R Interval 144 ms MUSE SYSTEM QRS Duration 74 ms MUSE SYSTEM Q-T Interval 338 ms MUSE SYSTEM QTC Calculated (Bezet) 465 ms MUSE SYSTEM Calculated P [place] 49 degrees MUSE SYSTEM Calculated R [place] 20 degrees MUSE SYSTEM Calculated T [place] 50 degrees MUSE SYSTEM INTERPRETATION Sinus tachycardia Low voltage QRS Borderline ECG When compared with ECG of 14-JUL-2023 06:51, No significant change was found Confirmed by MD Norm, Torrey ([id number]) on 08/03/2023 4:09:11 PM MUSE SYSTEM 08/03/2023 1:57 PM EDT 08/03/2023 4:09 PM EDT Unknown ECG ORDERABLES MUSE SYSTEM documented in this encounter Visit Diagnoses Diagnosis SQ ICD, D [employer], single lead documented in this encounter Care Teams Hemmer Automatic Relationship Specialty Start Date End Date Edie Ellis MD [address] [place] [address] PCP - General 10/15/10 documented as of this encounter
--- OUTSIDE RECORDS SUMMARY | 2024-06-03 00:23 | XMS_ITS | Encounter Summary ---
Author Organization [facility] Address [facility] [place] [address] Care Team Providers Care Lotus Notes Administrator Name Role Phone Edie Ellis MD Primary Care Provider [phone] Reason for Visit * Reason Comments Establish Care RT SHOULDER PARTIAL ROTATOR CUFF TEAR DISCUSS SURGICAL OPTIONS 2ND OPINION TRA * Consultation (Routine) - Closed Specialty Diagnoses / Procedures Referred By Geraldine olmedo Referred To Contact Orthopaedics Diagnoses RIGHT SHOULDER PARTIAL ROTATOR CUFF TEAR Edie Ellis MD [facility] [address] [place] [address] [facility] [address] [place] [phone] Referral ID Status Reason Start Date Expiration Date V isits Requested Visits Authorized [id number] Closed Consult, Test & Treat PCP Updated and/or Approved 04/10/2023 04/09/2024 6 6 Encounter Details Date Type Department Care Team (Late st Contact Info) Description 07/03/2023 11:40 AM EDT Office [place] [address] Rory Kaminski MD [facility] DR ORTHOPAEDIC [place] [address] Chronic pain in right shoulder Social History Tobacco Use Types Packs/Day Years [...] Sign Reading Time Taken Comments Blood Pressure - - Pulse - - Temperature - - Respiratory Rate - - Oxygen Saturation - - Inhaled Oxygen Concentration - - Weight 91.6 kg (202 lb) 07/03/2023 11:16 AM EDT Height 162.6 cm (5' 4.02) 07/03/2023 11:16 AM E DT Body Mass Index 34.66 07/03/2023 11:16 AM EDT documented in this encounter Progress Notes * Loyda Alvarado Darshan - 07/03/2023 11:40 AM EDT Pre-Operative Patient Education Procedure: Right RCR Post-op Imaging order placed: No H&P: To be completed PCP Consent: The surgical consent was reviewed with Jammie by Dr. Rory Kaminski. Procedure, risks, and benefits were reviewed. Questions were solicited and answered. The Jammie understands these and the surgical consent was signed. Personal or Family Hx of blood clot?: no History of problems with anesthetics: no Problems with pain medication in the past?: no DME/Physical Therapy: Jammie has sling and will bring it DOS. She will be given a referral for physical therapy and a post operative protocol for their procedureafter surgery.. Jammie understands the expectations around post operative physical therapy and that this is an important component of their recovery. She was instructed to schedule the first post operative appointment prior to the day of surgery. Jammie was instructed that PT start time will be TBD after surgery. Jammie plans to pursue PT at [facility] in [facility] Discussed making sure they take care of child nurse, sleeping situations, and having help with ADL'sbefore day of surgery. Dicussed time frame for sling . Jammie was given a bottle of Hibiclens to be used in the shower the night before and the morning of their procedure. Showering instructions were reviewed. Medications and Pain Management: Reviewed with Jammie to discontinue use of NSAIDS and Aspirin 7 days before surgery. Anticoagulation plan post op: TBD by cardio Patient has narcotic contract with PCP Call out to to discuss post op pain management 07/03/2023 11:40 AM Opioid PDMP Comment Hydromorphone 06/23/23 from PCP who she has a contract with Jammie Gottlieb is being prescribed a prescription opioid for the treatment of acute post-operativepain related to Orthopedic surgery. Jammie Gottlieb has been advised to take the smallest dose possible to control their pain and as their pain improves to take smaller doses and increase the time between doses. In addition to this medication, non-opioid medications have been prescribed for adjunct treatment of their pain. Non-pharmacological treatment such as ice, elevation and activity modification have been recommended as appropriate. The Acute Opioid Therapy Informed Consent form has been completed and sent to medical records for scanning to chart. Jammie will call to schedule this procedure if he has not heard from them in 72 hours, she was giventhe surgical schedulers direct number Loyda Alvarado Turnaround Planner Department of Orthopaedics Division of Sports Medicine * Rory Kaminski MD - 07/03/2023 11:40 AM EDT Chief complaint: Right shoulder pain HPI: 48-year-old female, patient of Dr. Berg in [place] who is status post left shoulder arthroscopy with debridement and subacromial decompression, biceps tenotomy with good results severalyears ago. She has now progressive onset of symptoms in the right shoulder which are exactly the same as what she experienced on the left. She has had treatment with Dr. Berg with physical therapy, corticosteroid injection, MRI scan demonstrating partial-thickness rotator cuff tears, subacromial bursitis, no osteoarthritis. She had a discussion with Dr. Berg and was indicated for right shoulderarthroscopy with direct evaluation of the rotator cuff for debridement or repair, possible biceps tenotomy and debridement. The plan had been to do this in [place] but she has an underlying muscular dystrophy as well as underlying congestive heart failure. She was therefore directed to pursue care here at [facility]. On exam she is pleasant 48-year-old female. No distress. BMI 35. She has painful but full active range of motion of the right shoulder. She has pain and mild weakness the empty can position. Intact strength in external rotation with the arm at the side. She has positive impingement signs. She is tender to palpation over the biceps tendon. She is only mildly tender to palpation over the AC joint. Imaging: Personal review and interpretation of her x-rays demonstrate normal bony anatomy. Personalreview and interpretation of her MRI scan demonstrates some bursal fluid in the subacromial space. There is partial-thickness tearing of her supraspinatus which is mild to moderate. Otherwise her glenohumeral joint is well-maintained. Her subscapularis is intact. She has some inflammation and fluidsignal in her biceps tendon. A/P: 48-year-old female with signs symptoms consistent with partial-thickness rotator cuff tear andsubacromial impingement. We discussed at length. I will discuss with my anesthesia colleagues aboutthe appropriate location for surgical treatment. Given her excellent result to surgical intervention on the left side this seems like a reasonable approach to the right side. The specific goals risk and benefits of her surgery were reviewed with her in detail. Risks including but limited to infection, blood clot, incomplete relief of symptoms. Informed consent was obtained. documented in this encounter Miscellaneous Notes * Addendum Note - Rory Kaminski MD - 07/03/2023 11:40 AM EDTAddended by: RORY KAMINSKI on: 07/03/2023 07:46 PM Modules accepted: Orders documented in this encounter Plan of Treatment Upcoming Encounters Date Type Department Care Team (Late st Contact Info) Description 07/09/2024 10:00 AM EDT Hospital Encounter Non-Invasive [place] [address] Arrived documented as of this encounter Visit Diagnoses Diagnosis Chronic pain in right shoulder Pain in joint, shoulder region documented in this encounter Care Teams Lotus Notes Administrator Relationship Specialty Start Date End Date Edie Ellis MD [address] [place] [address] PCP - General 10/15/10 documented as of this encounter
--- OUTSIDE RECORDS SUMMARY | 2024-06-03 00:23 | XMS_ITS | Encounter Summary ---
[place] [address] Care Team Providers Care Epic Cadence Specialists Name Role Phone Edie Ellis MD Primary Care Provider [phone] Reason for Visit * Reason Onset Date Comments Pre Procedure Call 07/21/2023 Encounter Details Date Type Department Care Team (Late st Contact Info) Description 07/21/2023 Telephone Cardiology at [address] [phone] Loretta Carreon, RN Pre Procedure Call Social History Tobacco Use Types Packs/Day Years [...] encounter Miscellaneous Notes * Telephone Encounter - Loretta Carreon RN - 07/21/2023 9:46 AM EDTSummary: Pre Procedure Call: Defibrillator Function Testing SABAS RESIDENT CARE MANAGER RN COORDINATION CHECKLIST Patient Name: Jammie Gottleib Patient Performing Biodiesel Engineering Manager: Jonathan Willson Referring Provider: Hero Taylor Date of Procedure: 08/07/23 Arrival Time/ Case Time: 7:00 am / 8:30 am Check In Location: Interdisciplinary Professor Desk 4W Date Patient was Called: 07/21/23 Procedure: Defibrillator Function Threshold Testing Company: [facility] Orders: Yes Lab Orders: Yes Anesthesia: GA Discharge Plan/Disposition: SAME DAY DISCHARGE Med Instructions: ARB - hold Entresto the AM of procedure OTHER - STOP Farxiga beginning 3 days prior to procedure (no doses 08/04 - 08/07) Anticoag Type: N/A DM: Yes Instructions for DM medications: Hold metformin the AM of procedure Contrast Allergy: N/A ABX allergies: Sulfas & Penicillins (ANAPHYLAXIS) Coming from an assisted living facility?: No Any recent S/S of infection (fevers, on oral ABX)?: No Other Instructions: Clear liquids (water, apple juice, kristen kimberlee) OK up until 2 hrs prior to procedure, nothing to eatafter midnight on day of procedure.Same Day will call 08/06. Will be going home same day , understands that they will need forklift driver on day of discharge documented in this encounter Plan of Treatment Upcoming Encounters Date Type Department Care Team (Late st Contact Info) Description 07/09/2024 10:00 AM EDT Hospital Encounter Non-Invasive [place]iology [place] [address] Arrived documented as of this encounter Visit Diagnoses Not on filedocumented in this encounter Care Teams Epic Cadence Specialists Relationship Specialty Start Date End Date Edie Ellis MD [address] [place] [address] PCP - General 10/15/10 documented as of this encounter
--- OUTSIDE RECORDS SUMMARY | 2024-06-03 00:23 | XMS_ITS | Encounter Summary ---
Author Organization [facility] Address [facility] [place] [address] Care Team Providers Care Physical Therapy Aide Name Role Phone Edie Ellis MD Primary Care Provider [phone] Encounter Details Date Type Department Care Team (Late st Contact Info) Description 07/06/2023 Orders Only Cardiology at [address] [phone] Kina Awad PA [facility] [place] [address] Social History Tobacco Use Types Packs/Day Years [...] AM EST documented as of this encounter Progress Notes * Kina Awad PA - 07/06/2023 5:20 PM EDT Opened in error documented in this encounter Plan of Treatment Upcoming Encounters Date Type Department Care Team (Late st Contact Info) Description 07/09/2024 10:00 AM EDT Hospital Encounter Non-[place] [phone] Arrived documented as of this encounter Visit Diagnoses Not on filedocumented in this encounter Care Teams Physical Therapy Aide Relationship Specialty Start Date End Date Edie Ellis MD [address] [facility] [address] [place] [address] PCP - General 10/15/10 documented as of this encounter
--- OUTSIDE RECORDS SUMMARY | 2024-06-03 00:23 | XMS_ITS | Encounter Summary ---
[place] [address] Care Team Providers Care Hotel Receptionist Name Role Phone Edie Ellis MD Primary Care Provider [phone] Encounter Details Date Type Department Care Team (Latest Contact Info) Description 07/02/2023 Travel Social History Tobacco Use Types Packs/Day Years Used Date Smoking Tobacco: Former Cigarettes 1 - 08/2022 Smokeless Tobacco: Never Comments:no more than 5 a da y - 01/02/2022 Alcohol Use Standard Drinks/Week Comments Not Currently 0 (1 standard drink = 0.6 oz [...] AM EDT Hospital Encounter Non-[place] [phone] Arrived documented as of this encounter Visit Diagnoses Not on filedocumented in this encounter Care Teams Hotel Receptionist Relationship Specialty Start Date End Date Edie Ellis MD [address] [place] [address] PCP - General 10/15/10 documented as of this encounter
--- OUTSIDE RECORDS SUMMARY | 2024-06-03 00:23 | XMS_ITS | Encounter Summary ---
Author Organization Formerly [facility] [place] [address] Care Team Providers Care Fish Liver Sorter Name Role Phone Edie Ellis MD Primary Care Provider [phone] Reason for Visit * Auth/Cert (Routine) Specialty Diagnoses / Procedures Referred By Geraldine t Referred To Contact Diagnoses Cardiomyopathy, unspecified type [I42.9]Syncope, unspecified syncope type [R55]Family history of sudden cardiac [Z82.41] Procedures ELECTROPHYSIOLOGY PROCEDURE Tigre Whiteside MD [facility] [address] [facility] Referral ID Status Reason Start Date Expiration Date Visits Re quested Visits Authorized [id number] 1 1 Encounter Details Date Type Department Care Team (Latest Contact Info) Description 07/14/2023 6:25 AM EDT - 07/15/2023 12:59 PM EDT Hospital Encounter [place] [address] Tigre Whiteside MD [facility] [address] Cardiomyopathy, unspecified type; Syncope, unspecified syncope type; Family history of sudden cardiac Discharge Disposition: Home Social History Tobacco Use [...] Sign Reading Time Taken Comments Blood Pressure 111/80 07/15/2023 11:57 AM EDT Pulse 92 07/15/2023 7:43 AM EDT Temperature 36.9 ??C (98.4 ??F) 07/15/2023 1 1:57 AM EDT Respiratory Rate 16 07/15/2023 11:5 7 AM EDT Oxygen Saturation 97% 07/15/2023 11: 57 AM EDT Inhaled Oxygen Concentration - - Weight 95.1 kg (209 lb 11.2 oz) 07/14/2023 6:37 AM EDT Height - - Body Mass Index 35.98 07/03/2023 11:16 AM EDT documented in this encounter Discharge Summaries * Hunter Mcclain PA - 07/15/2023 10:32 AM EDT Images from the original note were not included. Discharge Summary Patient Name: Jammie Gottlieb Patient Age: 48 y.o. Language: Palauan Race: White Ethnicity: Not nor Admit date: 07/14/2023 Discharge date and time: 07/15/2023 1100 Attending Physician: Tigre Whiteside MD Discharge Physician: Tigre Whiteside MD Follow-up Recommendations for Providers: [employer] - ZIIBRA subcutaneous ICD Device function is normal Stable for discharge to home Scheduled for ~ day post implant device follow up in device clinic Scheduled for DFT test - Arrive 0700 to Same Day for DFT on Thursday, August 07 Reports moderate pain(expected at implant site), refractory to acetaminophen/ice - #20 hyrdomorphone Refill provided; zero refills Inpatient Provider Contact Information: Cardiac Electrophysiology [phone], option #3 Discharge Diagnoses (Hospital Problems) and Secondary Diagnoses (Chronic Problems): Active Hospital Problems Diagnosis HFrEF (heart failure with reduced ejection fraction) SQ ICD, [employer], single lead Resolved Hospital Problems No resolved problems to display. Active Non-Hospital Problems Diagnosis Chronic pain in right shoulder T2DM Essential hypertension Syncope Post laminectomy syndrome Cardiomyopathy Atrial fibrillation Lumbar radiculopathy Operations/Major Procedures: Operations: Procedure(s): ELECTROPHYSIOLOGY PROCEDURE 07/14/2023 SQ ICD implantation 07/14/2023 History of Presentation: 48 y.o. female with a history of non-ischemic cardiomyopathy with known TTN gene, HTN, DM2, syncope, EF 42%, admitted for primary prevention subcutaneous ICD. Hospital Course: [employer] SQ ICD implanted without complication. Non-inducible for VT/VF. 10j shock impedance = 87 ohms. Mild incisional pain; no hematoma; dressings intact Vital Signs at Discharge: BP: 100/68, Heart Rate: 92, Temp: 36.9 ??C (98.4 ??F), Resp: 17, Weight: 95.1 kg (209 lb 11.2 oz) (07/14/23 0637) Functional and Cognitive Status: functional; alert and oriented Admission Diagnoses: HFrEF (heart failure with reduced ejection fraction) [I50.20] Discharge Diagnoses: HFrEF Admission Condition: fair Indication for Admission: Cardiomyopathy; hx of syncope; +TTN gene Consults: none Important Studies and Lab Data: Latest Reference Range & Units 07/14/23 07:00 Sodium 135 - 145 mmol/L 139 Potassium 3.5 - 5.0 mmol/L 4.6 Chloride 98 - 107 mmol/L 105 CO2 22 - 31 mmol/L 25 Anion Gap 5 - 15 mmol/L 9 BUN 8 - 18 mg/dL 14 Creatinine 0.70 - 1.20 mg/dL 0.44 (L) Estimated GFR >=60 mL/min/1.73 m?? 119 Calcium 8.5 - 10.5 mg/dL 8.9 Glucose Lvl 65 - 199 mg/dL 161 (L): Data is abnormally low Treatments: Device Data: Diet Assistant Model # Serial # Generator ZIIBRA [id number] Ventricular Lead ZIIBRA [id number] Impedance (ohms) Shock (10J) 87 Programming: Rate Detection enhancements First shock energy Shock zone 240 - 80J x 5 Conditional shock zone: 200 INSIGHT 80J x 5 Discharge Exam: Last value Range last 12 hrs Temperature Temp: 36.9 ??C (98.4 ??F) Temp: [36.7 ??C (98.1 ??F)-36.9 ??C (98.4 ??F)] Heart Rate Heart Rate: 92 Heart Rate: [92-101] Blood Pressure BP: 100/68 BP: (100-102)/(63-68) Respiratory Rate Resp: 17 Resp: [11-17] SpO2 SpO2: 93 % SpO2: [93 %-96 %] Constitutional: Appearance: Normal appearance. Cardiovascular: Rate and Rhythm: Normal rate and regular rhythm. Pulses: Normal pulses. Heart sounds: Normal heart sounds. Comments: Parasternal incision site with Mepilex dressing in place Left mid axillary incision site - no hematoma; Clozex closure with Mepilex AG covering Pulmonary: Effort: Pulmonary effort is normal. Breath sounds: Normal breath sounds. Musculoskeletal: General: Normal range of motion. Skin: General: Skin is warm and dry. Neurological: General: No focal deficit present. Mental Status: She is alert and oriented to person, place, and time. Discharge Conditions/Prognosis: good Discharge to: home Updated Allergies/ADRs: Allergies Allergen Reactions Penicillins Anaphylaxis Other reaction(s): throat closes Sulfa (Sulfonamide Antibiotics) Hives Other reaction(s): Hives Immunizations Given this Hospitalization: Immunization History Administered Date(s) Administered Influenza Vaccine PF, Quadrivalent 09/06/2021 Influenza Vaccine, Whole 10/28/2008, 08/28/2009 MMR Vaccine, Live 02/18/2010 Discharge Medications: Your Medications Continued medications with new dosing Dose Details Biotin 5 mg capsule As directed, every three days What changed: how much to take how to take this additional instructions Refills: 0 Continued medications, unchanged Dose Details Aerochamber Max with Flow-VU Spacer USE DIRECTED Generic drug: inhalational spacing device Refills: 0 albuteroL 90 mcg/actuation HFA Aerosol Inhaler Inhale 2 puffs into the lungs every 4 hours as needed. Use with spacer 2 puff Refills: 0 aspirin EC 81 mg EC (DR) tablet Take 81 mg by mouth daily. 81 mg Refills: 0 cholecalciferol (Vitamin D3) 50 mcg (2,000 unit) Capsule TAKE 1 CAPSULE BY MOUTH DAILY Refills: 0 clonazePAM 1 mg tablet Commonly known as: KlonoPIN Take 1 mg by mouth 2 times daily as needed. 1 mg Refills: 0 cyanocobalamin (Vitamin B-12) 1,000 mcg tablet Commonly known as: Vitamin B-12 TAKE 1 TABLET BY MOUTH EVERY DAY Refills: 0 CYMBALTA ORAL Take 40 mg by mouth daily. 40 mg Refills: 0 dapagliflozin propanediol 5 mg tablet Commonly known as: Farxiga Take 5 mg by mouth daily. 5 mg Refills: 0 estradioL 1 mg tablet Commonly known as: Estrace 2 times daily. Refills: 0 fluconazole 150 mg tablet Commonly known as: Diflucan Take 150 mg by mouth daily. 150 mg Refills: 0 hydrocortisone 2.5 % Cream as needed. Refills: 0 icosapent ethyL 1 gram capsule Commonly known as: Vascepa Take 2 g by mouth 2 times daily. 2 g Quantity: 120 capsule Refills: 11 lamoTRIgine 100 mg tablet Commonly known as: LaMICtal TAKE 1 TABLET BY MOUTH EVERY DAY Refills: 0 levothyroxine 25 mcg tablet Commonly known as: Synthroid Bedtime Refills: 0 loratadine 10 mg Tablet Commonly known as: Claritin TAKE 1 TABLET BY MOUTH EVERY DAY NEEDED Refills: 0 magnesium oxide 400 mg (241.3 mg magnesium) Tablet Commonly known as: Mag-Ox Take 400 mg by mouth 2 times daily. 400 mg Refills: 0 metFORMIN XR 500 mg ER 24 hr tablet Commonly known as: Glucophage XR Twice a day Refills: 0 metoprolol succinate XL 100 mg ER 24 hr tablet Commonly known as: Toprol-XL Take 1 tablet by mouth daily. 100 mg Quantity: 90 tablet Refills: 3 multivitamin Capsule Take 1 capsule by mouth daily. 1 capsule Refills: 0 naloxone 4 mg/actuation [place], Non-Aerosol Commonly known as: Narcan Once Refills: 0 naproxen 500 mg tablet Commonly known as: Naprosyn 2 times daily. Refills: 0 naratriptan 2.5 mg tablet Commonly known as: Amerge Take 2.5 mg by mouth as needed. Take one (1) tablet at onset of headache; if returns or does not resolve, may repeat after 4 hours; do not exceed five (5) mg in 24 hours. 2.5 mg Refills: 0 omega-3 acid ethyl esters 1 gram capsule Commonly known as: Lovaza Take 2 capsules by mouth 2 times daily. 2 g Quantity: 120 capsule Refills: [address] capsule Commonly known as: PriLOSEC Take 20 mg by mouth daily. 20 mg Refills: 0 polyethylene glycoL 17 gram oral powder packet Commonly known as: Miralax Take 17 g by mouth as needed. 17 g Refills: 0 pregabalin 100 mg capsule Commonly known as: Lyrica Take 100 mg by mouth 2 times daily. 100 mg Refills: 0 prochlorperazine 10 mg tablet Commonly known as: Compazine Take 10 mg by mouth as needed. 10 mg Refills: 0 Riboflavin 25 mg tablet Commonly known as: Vitamin B2 Take 200 mg by mouth 2 times daily. 200 mg Refills: 0 rosuvastatin 10 mg tablet Commonly known as: Crestor Take 10 mg by mouth every evening. 10 mg Refills: 0 sacubitriL-valsartan 97-103 mg tablet Commonly known as: Entresto Take 1 tablet by mouth 2 times daily. 1 tablet Quantity: 180 tablet Refills: 3 Trulicity 3 mg/0.5 mL Pen Injector once a week. Generic drug: dulaglutide Refills: 0 * valACYclovir 1 gram tablet Commonly known as: Valtrex Take 1,000 mg by mouth as needed. 1,000 mg Refills: 0 * valACYclovir 500 mg tablet Commonly known as: Valtrex Take 500 mg by mouth nightly. 500 mg Refills: 0 VITAMIN B COMP & C NO.3 ORAL Take 1 mg by mouth. 1 mg Refills: 0 WELLBUTRIN ORAL Take 150 mg by mouth 2 times daily. 150 mg Refills: 0 * This list has 2 medication(s) that are the same as other medications prescribed for you. Read thedirections carefully, and ask your doctor or other care provider to review them with you. UNREVIEWED medications - Discuss With Your Provider Dose Details HYDROmorphone 2 mg tablet Commonly known as: Dilaudid Take 1 tablet by mouth every 4 hours as needed for Pain. 2 mg Quantity: 20 tablet Refills: 0 Smoking Status at Discharge: Social History Tobacco Use Smoking Status Former Years: 3.00 Types: Cigarettes Quit date: 08/2022 Years since quittin.8 Smokeless Tobacco Never Tobacco Comments no more than 5 a day - 01/02/2022 Instructions Given to Patient at Discharge: Patient Instructions FINAL ICD RECOMMENDATIONS: 1. Standard post implant discharge instructions (see below): 2. Medications as listed above. 3. You may use ice packs over the incision. Make sure to use a dish cloth inspector (such as a towel) in between the ice pack and the bare skin and that it stays DRY. 4. Follow up in pacemaker clinic for a wound check and device check. 5. YOU HAVE BEEN SCHEDULED FOR DEFIBRILLATION THRESHOLD TEST on Monday August 07, 2023 with 0700 arrival at Same Day. PLEASE DO NOT EAT AFTER MIDNIGHT PRIOR TO THE PROCEDURE DEVICE CLINIC 1. You will be scheduled for a wound check in the Device Clinic for: ?? Incision check ?? Device interrogation ?? Review of remote follow up and set up of home monitor 2. Your device will be checked every 3 months (either in clinic or by remote). 3. Prior to discharge, you will be given a home monitor so that your device can send clinical data to the device clinic nurses. If you are unable to set this up at home prior to your wound check, we will review this at the time of your appointment NOTE: The device data we review from your home monitor is comparable to an in- office appointment. Therefore, your insurance company will be billed for review of your data. Depending on your coverage,you may be responsible for a portion of his charge. We recommend that you contact your insurance carrier for more details about your particular coverage. WOUND CARE FOR YOUR INCISION: Your wound will usually heal in 7-10 days. Your wound may be tender, it may appear slightly red andbumpy and there may be dry, crusty scabbing. These are all normal. How to Care for your Incision: - Either you or someone with you needs to look at the wound every day. - Report any signs of infection immediately: Drainage Swelling Warmth Increased pain Fevers/chills - Call if you are concerned about infection or the edges of the wound separate - A needle should not be put into the wound area because this can damage the device. You may need to remind your healthcare provider of this concern - There are sutures inside the incision that will dissolve on their own - Do not scratch or rub the wound - Do not apply creams, lotions, or ointments to the incision until is completely healed. - You may cover the wound with gauze if it rubs on clothing and causes discomfort - Protect your wound from injury until the skin has had sufficient time to heal -Your small front chest incision has been covered with a Mepilex dressing. - This dressing will stay on for 7 days. - Please remove the dressing on: 07/21/23 - If the edges pull up substantially or fluid gets underneath the Mepilex dressing, remove it sooner - Once removed, you may notice some grayish discoloration. This is normal. Your incision has been closed with: Dermabond - This is a sterile, liquid skin adhesive that holds wound edges together. The film will usually remain in place for a few weeks, then naturally sloughs (falls) off your skin. - Do not scratch, rub, or pick at the Dermabond adhesive film. This may loosen the film before yourwound is healed. - Protect the wound from prolonged exposure to sunlight or tanning lamps while the film is in place - You may occasionally and briefly wet your wound in the shower or bath. Do not soak or scrub your wound, do not swim, and avoid periods of heavy perspiration until the Dermabond adhesive has naturally fallen off. After showering or bathing, gently blot your wound dry with a soft towel CALL IMMEDIATELY: If you develop chest pain, shortness of breath, bleeding, discharge from the incision, opening of the incision and/or fever/temperature >100 degrees F. Patient Instructions - for Clozex?? Skin Closures Clozex?? Skin Closures are made of polymeric (plastic) components coated with a pressure sensitive skin adhesive. The device is made to stay in place from 7 to 10 days and then, naturally slough (fall) off your skin. At all times try to keep your wound area protected and dry. Day 1. Some tenderness and swelling is common in all wounds, but if you have any personal concerns, contact [facility] Electrophysiology at [phone]. Do not attempt to readjust the Clozex?? device once applied, however you may gently re-attach a corner that has accidentally been lifted. Day 2 and beyond. You may take brief showers with your Clozex?? device, but try to avoid letting the direct force from the stream of water contact the device. Avoid soaking in a bath, swimming, or use of a hot tub while the device is in place. If your wound is wet, gently pat the area dry with a towel. Do not scrub or soak your wound. Avoid activities producing heavy perspiration. Never place adhesive tape directly onto the Clozex?? device because removal of the tape may inadvertently remove your device. If discomfort increases, or if your wound area is reddened, or is excessively warm to the touch, this may be a sign of infection and you should consult your physician immediately. Some discoloration around the outer perimeter of the Clozex?? device from exposure to the environment is normal and varies depending on cover dressings used. Device Removal: The Clozex?? device should be worn for 7-10 days, please remove on July 24 When removing the device from the skin, gently pull along (parallel to) the length of the incision or laceration. Never peel the device off across (perpendicular to) the length of the incision or laceration as this could result in wound edge separation. Wear and hold time vary depending on patient care, skin location, and skin type. After device removal, check the wound and consult your physicianif there are any questions. The office scheduling phone number is [phone]. If you have any questions or concerns about this product, please call the device clinic at [phone]. General Instructions None Future Appointments and Orders Future Appointments and Orders Future Appointments Provider Department Dept Phone 07/20/2023 1:00 PM PRE ANESTHESIA, CONSULT Same Day at [facility] Arrive at: Home [phone] To view instructions for your video visit, click here, or visit this website: [email or web address] If you have not previously downloaded the [facility] patient portal software, Jiongji App, or the Eveo joe, please do so by clicking one of these links below or searching in your device's joe store. For all desktops/laptops; for Android devices; for Apple/iOS devices FAQs: Join Video Visit button not connecting? - This may be due to pop-up blockers. - Click this link to see: How to Disable Pop-Up Block for [facility] Video Visits Zoom asking for a meeting password? - Exit out of the Zoom program and try the link again 07/24/2023 9:30 AM Tila Elmore RN Cardiology at [facility] Arrive at: [facility] [phone] 10/13/2023 9:30 AM Tila Elmore RN Cardiology at [facility] Arrive at: [facility] [phone] Discharge References/Attachments None documented in this encounter Discharge Instructions * Patient Instructions* Hunter Mcclain PA - 07/14/2023 10:55 AM EDT FINAL ICD RECOMMENDATIONS: 1. Standard post implant discharge instructions (see below): 2. Medications as listed above. 3. You may use ice packs over the incision. Make sure to use a dish cloth inspector (such as a towel) in between the ice pack and the bare skin and that it stays DRY. 4. Follow up in pacemaker clinic for a wound check and device check. 5. YOU HAVE BEEN SCHEDULED FOR DEFIBRILLATION THRESHOLD TEST on Monday August 07, 2023 with 0700 arrival at Same Day. PLEASE DO NOT EAT AFTER MIDNIGHT PRIOR TO THE PROCEDURE DEVICE CLINIC 1. You will be scheduled for a wound check in the Device Clinic for: ?? Incision check ?? Device interrogation ?? Review of remote follow up and set up of home monitor 2. Your device will be checked every 3 months (either in clinic or by remote). 3. Prior to discharge, you will be given a home monitor so that your device can send clinical data to the device clinic nurses. If you are unable to set this up at home prior to your wound check, we will review this at the time of your appointment NOTE: The device data we review from your home monitor is comparable to an in- office appointment. Therefore, your insurance company will be billed for review of your data. Depending on your coverage,you may be responsible for a portion of his charge. We recommend that you contact your insurance carrier for more details about your particular coverage. WOUND CARE FOR YOUR INCISION: Your wound will usually heal in 7-10 days. Your wound may be tender, it may appear slightly red andbumpy and there may be dry, crusty scabbing. These are all normal. How to Care for your Incision: - Either you or someone with you needs to look at the wound every day. - Report any signs of infection immediately: Drainage Swelling Warmth Increased pain Fevers/chills - Call if you are concerned about infection or the edges of the wound separate - A needle should not be put into the wound area because this can damage the device. You may need to remind your healthcare provider of this concern - There are sutures inside the incision that will dissolve on their own - Do not scratch or rub the wound - Do not apply creams, lotions, or ointments to the incision until is completely healed. - You may cover the wound with gauze if it rubs on clothing and causes discomfort - Protect your wound from injury until the skin has had sufficient time to heal -Your small front chest incision has been covered with a Mepilex dressing. - This dressing will stay on for 7 days. - Please remove the dressing on: 07/21/23 - If the edges pull up substantially or fluid gets underneath the Mepilex dressing, remove it sooner - Once removed, you may notice some grayish discoloration. This is normal. Your incision has been closed with: Dermabond - This is a sterile, liquid skin adhesive that holds wound edges together. The film will usually remain in place for a few weeks, then naturally sloughs (falls) off your skin. - Do not scratch, rub, or pick at the Dermabond adhesive film. This may loosen the film before yourwound is healed. - Protect the wound from prolonged exposure to sunlight or tanning lamps while the film is in place - You may occasionally and briefly wet your wound in the shower or bath. Do not soak or scrub your wound, do not swim, and avoid periods of heavy perspiration until the Dermabond adhesive has naturally fallen off. After showering or bathing, gently blot your wound dry with a soft towel CALL IMMEDIATELY: If you develop chest pain, shortness of breath, bleeding, discharge from the incision, opening of the incision and/or fever/temperature >100 degrees F. Patient Instructions - for Clozex?? Skin Closures Clozex?? Skin Closures are made of polymeric (plastic) components coated with a pressure sensitive skin adhesive. The device is made to stay in place from 7 to 10 days and then, naturally slough (fall) off your skin. At all times try to keep your wound area protected and dry. Day 1. Some tenderness and swelling is common in all wounds, but if you have any personal concerns, contact [facility] Electrophysiology at [phone]. Do not attempt to readjust the Clozex?? device once applied, however you may gently re-attach a corner that has accidentally been lifted. Day 2 and beyond. You may take brief showers with your Clozex?? device, but try to avoid letting the direct force from the stream of water contact the device. Avoid soaking in a bath, swimming, or use of a hot tub while the device is in place. If your wound is wet, gently pat the area dry with a towel. Do not scrub or soak your wound. Avoid activities producing heavy perspiration. Never place adhesive tape directly onto the Clozex?? device because removal of the tape may inadvertently remove your device. If discomfort increases, or if your wound area is reddened, or is excessively warm to the touch, this may be a sign of infection and you should consult your physician immediately. Some discoloration around the outer perimeter of the Clozex?? device from exposure to the environment is normal and varies depending on cover dressings used. Device Removal: The Clozex?? device should be worn for 7-10 days, please remove on July 24 When removing the device from the skin, gently pull along (parallel to) the length of the incision or laceration. Never peel the device off across (perpendicular to) the length of the incision or laceration as this could result in wound edge separation. Wear and hold time vary depending on patient care, skin location, and skin type. After device removal, check the wound and consult your physicianif there are any questions. The office scheduling phone number is [phone]. If you have any questions or concerns about this product, please call the device clinic at [phone]. documented in this encounter Medications at Time of Discharge Medication Sig Dispensed Refills Start Date End Date Biotin 5 mg capsule As directed, every [...] a day 03/12/2015 naloxone (Narcan) 4 mg/actuation [place], Non-Aerosol Once 03/10/2019 magnesium oxide (MAG-OX) 400 [...] daily. 01/29/2024 documented as of this encounter Progress Notes * Donna Lemus RN - 07/15/2023 12:51 PM EDT [facility] Short Stay Unit Discharge Note All relevant discharge milestones have been met by the patent. After Visit Summary and discharge teaching reviewed with the patient and a family member. IV access has been discontinued. All personal belongings have been returned to the patient/family upon their departure from the unit. Patient has been discharged to home The patient has been discharged without VNA services. * Hunter Mcclain PA - 07/15/2023 7:58 AM EDT Inpatient Cardiac Electrophysiology Discharge Day Note Patient Name: Jammie Gottlieb Service: EP Responsible Attending: Tigre Whiteside MD Reason for continued hospitalization: Cardiomyopathy; POD#1 SQ ICD implantation Active Problems: Active Hospital Problems Diagnosis HFrEF (heart failure with reduced ejection fraction) SQ ICD, [employer], single lead Resolved Hospital Problems No resolved problems to display. Interval History: 48 y.o. female with a history of non-ischemic cardiomyopathy with known TTN gene, HTN, DM2, syncope, EF 42%, admitted for primary prevention subcutaneous ICD. [employer] SQ ICD implanted without complication. Non-inducible for VT/VF. 10j shock impedance = 87 ohms. Mild incisional pain; no hematoma; dressings intact Review of Systems Constitutional: Negative for chills, diaphoresis and fatigue. Respiratory: Negative for chest tightness and shortness of breath. Gastrointestinal: Negative for diarrhea, nausea and vomiting. Genitourinary: Negative for dysuria and frequency. Neurological: Negative for syncope and light-headedness. Telemetry: HR: 88-100 sinus rhythm Meds: Scheduled Meds: sacubitriL-valsartan 1 tablet Oral BID rosuvastatin 10 mg Oral QPM fluconazole 150 mg Oral Daily pregabalin 100 mg Oral BID metoprolol succinate XL 100 mg Oral Daily metFORMIN XR 500 mg Oral BID magnesium oxide 400 mg Oral BID levothyroxine 25 mcg Oral QAM icosapent ethyL 2 g Oral BID buPROPion 150 mg Oral BID estradioL 1 mg Oral Daily estradioL 1.5 mg Oral QPM aspirin EC 81 mg Oral QPM DULoxetine DR 40 mg Oral QPM lamoTRIgine 100 mg Oral QPM pantoprazole EC 20 mg Oral QPM Continuous Infusions: PRN Meds:clonazePAM, polyethylene glycoL, naratriptan, loratadine, HYDROmorphone, acetaminophen Physical Exam: Last value Range last 12 hrs Temperature Temp: 36.9 ??C (98.4 ??F) Temp: [36.7 ??C (98.1 ??F)-36.9 ??C (98.4 ??F)] Heart Rate Heart Rate: 92 Heart Rate: [92-101] Blood Pressure BP: 100/68 BP: (100-102)/(63-68) Respiratory Rate Resp: 17 Resp: [11-17] SpO2 SpO2: 93 % SpO2: [93 %-96 %] Physical Exam Vitals and nursing note reviewed. Constitutional: Appearance: Normal appearance. Cardiovascular: Rate and Rhythm: Normal rate and regular rhythm. Pulses: Normal pulses. Heart sounds: Normal heart sounds. Comments: Parasternal incision site with Mepilex dressing in place Left mid axillary incision site - no hematoma; Clozex closure with Mepilex AG covering Pulmonary: Effort: Pulmonary effort is normal. Breath sounds: Normal breath sounds. Musculoskeletal: General: Normal range of motion. Skin: General: Skin is warm and dry. Neurological: General: No focal deficit present. Mental Status: She is alert and oriented to person, place, and time. Lab Comments: Recent Results (from the past 24 hour(s)) POCT Glucose Result Value Ref Range POC Glucose 135 65 - 199 mg/dL Pertinent Radiographic/Diagnostic Results: Device Data: Diet Assistant Model # Serial # Generator [employer] [id number] Ventricular Lead [employer] [id number] Impedance (ohms) Shock (10J) 87 Programming: Rate Detection enhancements First shock energy Shock zone 240 - 80J x 5 Conditional shock zone: 200 INSIGHT 80J x 5 CXR: 07/15/2023 SQ ICD; Good can and lead position Assessment: Jammie Gottlieb is a 48 y.o. female with a history of non-ischemic cardiomyopathy with known TTN gene, HTN, DM2, syncope, EF 42%, admitted for primary prevention subcutaneous ICD. [employer] SQ ICD implanted without complication. Non-inducible for VT/VF. 10j shock impedance = 87 ohms. Plan: Device function is normal Stable for discharge to home Scheduled for DFT test - Arrive 0700 to Same Day for DFT on August 07 Provider: ANNE Oneal EP Consult attending physician: Juan Taylor MD EP Consult positional pager #[phone](EPMD) EP Device interrogation positional pager # [phone] Associated attestation - Hero Taylor MD - 07/15/2023 11:45 AM EDT Cardiac Electrophysiology Attending Addendum: The patient was seen, interviewed and examined by me, and Hunter Mcclain PA-C's note above was reviewed by me and agreed with. Jammie is a 48 yo woman w/ obesity, DM, Titan-gene related hypertrophic cardiomyopathy, family history of suspected malignant tachyarrhythmia and personal history of syncope who is post- op day #1 from SQ ICD placement under general anesthesia. Unable to induce VF to test DFT at that time. Dr. Whiteside requesting rescheduling for dedicated DFT testing in ~ 1month. Tentatively scheduled for Aug 07. Patient w/ only expected post-op wound tenderness. No evidence of hematoma. Will request abdominal binder for comfort. Patient ready to be discharged home in good and stable condition with discharge plans as outlined, incl wound check in ~ 10 days. Hero Taylor MD, PhD, [facility] Cardiac Electrophysiology * Leelee Barone RN - 07/14/2023 11:10 AM EDT 1050: Jammie Gottlieb arrived from in a bed to PACU 1. Pt was attached to monitors, alarms set appropriately & audible. NSR on surveillance monitor, lungs are clear. Sternal & Flank sites are both clean and dry, with mepilex intact. Blood sugar 135. Bladder scan 237. 1145: Phase 2 criteria met. 1225: Report given to SSU CHARLY Thompson. documented in this encounter H&P Notes * Tigre Whiteside MD - 07/14/2023 7:20 AM EDT Images from the original note were not included. Clinical Cardiac Electrophysiology Interval History and Physical Exam For Planned Procedure HISTORY OF PRESENT ILLNESS: Jammie Gottlieb is a 48 y.o. female with a history of non-ischemic cardiomyopathy with known TTN gene, HTN, DM2, syncope, EF 42%, presents for primary prevention subcutaneous ICD. Echocardiogram: 42% ROS: Denies recent fevers or chills No syncope No orthopnea No bleeding No neurological changes PHYSICAL EXAM: Vital Signs: BP 131/86 Pulse 79 Temp 36.1 ??C (97 ??F) (Temporal) Resp 16 Wt 95.1 kg (209 lb 11.2 oz) LMP (LMP Unknown) SpO2 97% BMI 35.98 kg/m?? A&O x 3, calm conversant, no acute distress Lung: normal respiratory effort Heart: regular pulse PROBLEM LIST: Patient Active Problem List Diagnosis Code Lumbar radiculopathy M54.16 Cardiomyopathy I42.9 Atrial fibrillation I48.91 Post laminectomy syndrome M96.1 T2DM E11.9 Essential hypertension I10 Syncope R55 Chronic pain in right shoulder M25.511, G89.29 ALLERGIES: Allergies Allergen Reactions Penicillins Anaphylaxis Other reaction(s): throat closes Sulfa (Sulfonamide Antibiotics) Hives Other reaction(s): Hives MEDICATIONS: Current Facility-Administered Medications Medication Dose Route Frequency Provider Last Rate Last Admin sodium chloride 0.9 % (flush) (BD PosiFlush Normal Saline 0.9) flush 5-20 mL 5- 20 mL Intravenous Q1Min PRN Ngoc Santiago MD lidocaine (Xylocaine) 1% (10 mg/mL) injection 3 mg 0.3 mL Subcutaneous Once PRN Ngoc Santiago MD lactated ringers infusion 1,000 mL Intravenous Continuous Ngoc Santiago MD lidocaine (Xylocaine) (20 mg/mL) 2% injection 400 mg 20 mL Subcutaneous Once Tigre Whiteside MD vancomycin (Vancocin) injection 1,000 mg 1 g Topical (Top) Once Tigre Whiteside MD iohexoL (Omnipaque) (350 mg/mL) solution 5-100 mL 5-100 mL Intravenous Q5 Min PRN Tigre Whiteside MD BUpivacaine (pf) (Marcaine) (5 mg/mL) 0.5% injection 150 mg 30 mL Subcutaneous Once Tigre Whiteside MD vancomycin (Vancocin) 1.5 gram in sodium chloride 0.9% 500 mL infusion 1.5 g Intravenous Once Tigre Whiteside MD PAST SURGICAL HISTORY: Past Surgical History: Procedure Laterality Date SECTION LUMBAR LAMINECTOMY PRO PERCUT IMPLNT NEUROELECT, EPIDURAL 06/03/2012 PERC IMPLANTATION NEUROSTIMULATOR ELECTRODE ARRAY, EPIDURAL performed by CARINE CHATTERJEE at [facility] MAIN OR PRO UNLISTED PROCEDURE, MUSCULOSKELETAL SYSTEM, GENERAL 04/26 L4- L5? disk surgery PRO UNLISTED PX FEMALE GEN SYS 09/15/00 02/17/10 c-sections LAB VALUES: Laboratory Data: Lab Results Component Value Date WBC 11.1 (H) 09/06/2021 HGB 14.8 09/06/2021 HCT 45.1 09/06/2021 MCV 89.1 09/06/2021 Lab Results Component Value Date NA 136 05/04/2023 K 4.2 05/04/2023 CL 99 05/04/2023 CO2 29 05/04/2023 BUN 10 05/04/2023 CREATININE 0.8 05/04/2023 GLUCOSE 178 05/04/2023 GLUCFASTING 112 (H) 09/06/2021 CALCIUM 9.3 05/04/2023 ESTGFR 91.40 05/04/2023 Lab Results Component Value Date TSH 0.85 06/17/2021 Lab Results Component Value Date INR 1.0 09/06/2021 ASSESSMENT AND PLAN: Jammie Gottlieb is a 48 y.o. female with a history of non-ischemic cardiomyopathy with known TTN gene, HTN, DM2, syncope, EF 42%, presents for primary prevention subcutaneous ICD. Rationales for, intended benefits and potential risk of planned procedures reviewed. The patient indicated understanding and agreement with the plan. Informed consent signed. Procedure checklist completed. Hola Mahan MD Cardiac Electrophysiology Fellow [facility] Pager [phone] 07/14/2023 Addendum 48 y.o.woman with longstanding NICM, with variable ejection fraction, and more recently diagnosed TTN cardiomyopathy. This, together with her history of syncope, LVEF < 45% at first diagnosis and family history of SCD prompted a clinic evaluation for consideration for primary prevention ICD implantation. She met with members of the EP team and Dr Taylor guided discussion re: ICD indications. TTN cardiomyopathy may confer a higher risk of ventricular arrhythmias. A shared decision making approach was used at that visit. Recommendations and plan as above TIGRE WHITESIDE MD documented in this encounter Miscellaneous Notes * Care Management Discharge - Prudencio Rudolph RN - 07/15/2023 9:47 AM EDT CARE MANAGEMENT FINAL DISCHARGE NOTE Chart reviewed, care reviewed with primary team and at interdisciplinary rounds. Patient is medically ready for discharge to home. Per care team, Patient with no apparent RNCM/SW needs at this time. No housing, transportation, insurance, resources concerns identified at this time. Supports in place to achieve a safe post-hospital transition. No identified barriers to accessing necessary care and/or follow-up after discharge. Needs for Transition of Care: Plan for discharge is: Home w/o Services Outpatient Agency/Support Group Needs: None Agency Referrals & Follow-up Care: D-H Scheduled Appointments D-H Scheduled Appointments JUL 20 myD-H New Video Visit Thursday 1:00 PM (Arrive by 12:45 PM) To view instructions for your video visit, click here, or visit this website: [email or web address] If you have not previously downloaded the [facility] patient portal software, Jiongji App, or the Eveo joe, please do so by clicking one of these links below or searching in your device's joe store. For all desktops/laptops; for Android devices; for Apple/iOS devices FAQs: Join Video Visit button not connecting? - This may be due to pop-up blockers. - Click this link to see: How to Disable Pop-Up Block for myDH Video Visits Zoom asking for a meeting password? - Exit out of the Zoom program and try the link again JUL 24 Hospital Check with Tila Anand RN Thursday 9:30 AM (Arrive by 9:10 AM) Cardiology at [address] [phone] Arrive at: [facility] OCT 13 Office Visit with Tila Anand RN Thursday 9:30 AM (Arrive by 9:10 AM) Cardiology at [address] [phone] Arrive at: [facility] Transportation: family or friend will provide Functional status prior to admission: Independent Home Environment: . . Accessibility Concerns: . na Current Functional Ability: Independent DME used at home: none DME Needed at Discharge: none Patient is insured through: Primary Insurance: MEDICARE Payor: MEDICARE / Plan: MEDICARE PART A & B / Product Type: *No Product type* / Secondary Insurance: MEDICAID [place] Prescription Coverage: This plan was formulated with input from patient, and team. All are in agreement with plan. Prudencio Rudolph RN documented in this encounter Plan of Treatment Upcoming Encounters Date Type Department Care Team (Late st Contact Info) Description 07/09/2024 10:00 AM EDT Hospital Encounter Non-[place] [address] Arrived documented as of this encounter Procedures Procedure Name Priority Date/Time Associated Diagnosis Comments XR CHEST PA AND LATERAL Routine 07/15/20 6:54 AM EDT POCT GLUCOSE Routine 07/14/2023 10:55 AM EDT ELECTROPHYSIOLOGY PROCEDURE Routine 07/14/2023 8:45 AM EDT Cardiomyopathy, unspecified type Syncope, unspecified syncope type Family history of sudden cardiac BASIC METABOLIC PANEL (NON-FASTING) STAT 07/14/2023 7:00 AM EDT EKG 12-LEAD Routine 07/14/2023 6:51 AM EDT Cardiomyopathy, unspecified type POCT GLUCOSE Routine 07/14/2023 6:37 AM EDT documented in this encounter Results * XR Chest PA & Lateral (Generic) (07/15/2023 6:54 AM EDT) Anatomical Region Laterality Modality Chest N/A Digital Radiogra phy Impressions 07/15/2023 8:35 AM EDT Interval placement of ICD with lead in proper position. No pneumothorax. No acute cardiopulmonary pathology. I have personally reviewed the image(s) and the resident's interpretation and agree with the findings, Radha Brown MD at 07/15/2023 8:35 AM Thank you for letting us participate in the care of this patient. ??If you are a health care provider and have any questions regarding this report, please contact the number below. ??For patients who have questions please contact the health pet caregiver that requested your imaging first. ? Narrative 07/15/2023 8:35 AM EDT EXAMINATION: XR CHEST PA AND LATERAL (GENERIC) CLINICAL HISTORY: Post CIED implantation, assess for lead placement and rule out pneumothorax TECHNIQUE: PA and lateral views of the chest COMPARISON: Chest radiograph 03/12/2023. FINDINGS: Support devices: Interval placement of ICD with right atrial lead in proper position. The trachea is midline. The cardiomediastinal silhouette is within normal limits. No discrete mass, consolidation, pleural effusion or pneumothorax Procedure Note Radha Brown MD - 07/15/2023 EXAMINATION: XR CHEST PA AND LATERAL (GENERIC) CLINICAL HISTORY: Post CIED implantation, assess for lead placement andrule out pneumothorax TECHNIQUE: PA and lateral views of the chest COMPARISON: Chest radiograph 03/12/2023. FINDINGS: Support devices: Interval placement of ICD with right atrial lead inproper position. The trachea is midline. The cardiomediastinal silhouette is withinnormal limits. No discrete mass, consolidation, pleural effusion or pneumothorax IMPRESSION Interval placement of ICD with lead in proper position. No pneumothorax. No acute cardiopulmonary pathology. I have personally reviewed the image(s) and the resident's interpretationand agree with the findings, Radha Brown MD at 07/15/2023 8:35 AM Thank you for letting us participate in the care of this patient. If youare a health care provider and have any questions regarding this report,please contact the number below. For patients who have questions please contactthe health pet caregiver that requested your imaging first. Tigre Whiteside MD IMG DX ORDERABLES * POCT Glucose (07/14/2023 10:55 AM EDT) POC Glucose 135 65 - 199 mg/dL [facility] Comment: Supplemental ranges: <140 mg/dL before meals <180 mg/dL all other times of the day Blood 07/14/2023 10:5 5 AM EDT 07/14/2023 10:55 AM EDT Tigre Whiteside MD POINT OF CARE TEST O RDERABLES Performing Organization Address City/State/[facility] Co de Phone Number [facility] [place] [address] * ELECTROPHYSIOLOGY PROCEDURE (07/14/2023 8:45 AM EDT) Anatomical Region Laterality Modality Other Narrative 07/14/2023 3:32 PM EDT Table formatting from the original result was not included. [facility] Electrophysiology Procedure Note Patient Name: Jammie Gottlieb Patient : 1975 Program Clinician: Tigre Whiteside MD Fellow: Hola Mahan MD Procedure: subcutaneous ICD implantation Procedure Date: 07/14/2023 Procedure: The patient was brought to the cardiac electrophysiology laboratory in a post-absorptive, fasting state after receiving 3 scrubs to the implant area. A peripheral IV was in place. Continuous electrocardiographic, blood pressure, oxygen saturation, and CO2 monitoring was initiated. Self-adhesive cardioversion patches were positioned on the chest. Sedation was administered by anesthesia and the patient was intubated. Fluoroscopy was used to confirm appropriate placement of the ICD generator and lead and these sites were marked. The implant site was then prepped and draped in the usual sterile fashion. IV antibiotics were administered. The implant areas were infiltrated with a 50/50 mixture of lidocaine (2%) and bupivicaine (0.5%). Two incisions were made: one at the left aspect of the xyphoid process (down to the fascia overlying the sternum) and one in the mid-axillary line at the level of the cardiac apex (confirmed via fluoroscopy). At the mid-axillary incision, sharp and blunt dissection was used down to the level of the pre-latissimus dorsi fascia and a device pocket was fashioned. Hemostasis was maintained with electrocautery. Using the tunneling device, the subcutaneous defibrillator lead was pulled first from the axillary incision to the xyphoid incision and then (using a peel-away sheath) pushed over the sternum and under the subcutaneous tissue towards the sternal notch. The lead was sutured in place at the supraxyphoid incision using a suture sleeve and 0 silk, non-absorbable suture. Both incisions/pockets were flushed with antibiotic solution. The generator was connected to the lead, tested and found to be functioning satisfactorily. The generator was implanted in the pocket. The generator was sutured to the floor of the pocket with 0 silk. The initial fascial layers were closed with 2-0 Monocryl. Impedance with a low amplitude shock (10J unsynchronized) was 87J. We attempted DFTs but were unable to induce ventricular arrhythmia despite using a combination of the device as well as low voltage (10J) unsynchronized cardioversion from the external Zoll defibrillator during 50 hz stimulation. During one of these attempts we transiently induced atrial fibrillation. Induction of ventricular fibrillation was unsuccessful. The incisions were then further closed using a middle layer of 2-0 Monocryl and then 4-0 Monocryl absorbable sutures. The skin was closed using a sub-cuticular technique. Over the xyphoid incision, the incision was covered with dermabond and then a Mepilex Ag. Over the mid-axillary incision, it was covered with dermabond, this was allowed to dry, and then Clozex tension adhesive dressing was placed. A Mepilex Ag was placed over this. Te patient remained hemodynamically stable, tolerated the procedure well and was transferred in stable condition. Dr. Whiteside was present for and participated in the entire procedure. Lead and Generator Data: Diet Assistant Model # Serial # Generator [id number] Ventricular Lead [employer] [id number] Data: Impedance (ohms) Shock (10J) 87 Programming: Rate Detection enhancements First shock energy Shock zone 240 - 80J x 5 Conditional shock zone: 200 INSIGHT 80J x 5 Defibrillation Testing: Attempted but unable to induce ventricular fibrillation. RADIOLOGY SUMMARY: Total Fluoro time (minutes) 0.4 Dose Area Product (cGycm2) 1 CONCLUSIONS: Successful placement of subcutaneous ICD Inability to induce ventricular arrhythmia during DFT testing CXR, Device interrogation tomorrow AM, NPO Procedures performed: subcutaneous ICD implantation, defibrillation threshold testing (attempted) I was the surface mount technology operator, present for the entire procedure and personally edited this note TIGRE WHITESIDE MD Tigre Whiteside MD EP PROCEDURE ORDERAB LES * (ABNORMAL) Basic Metabolic Panel (non-fasting) (07/14/2023 7:00 AM EDT) Glucose Lvl 161 65 - 199 mg/dL [facility] Comment:Diabetes: >=200 mg/d L plus symptoms BUN 14 8 - 18 mg/dL [facility] Creatinine 0.44(L) 0.70 - 1.20 mg/dL [facility] Sodium 139 135 - 145 mmol/L [facility] Potassium 4.6 3.5 - 5.0 mmol/L [facility] Comment: Please note: ??Patients with WBC >100,000 may have falsely elevated Potassium levels. ??For accurate Potassium quantification in these patients send serum separator tube (gold top) for subsequent determinations. ??Contact the Clinical Chemistry Laboratory if there are any questions. Chloride 105 98 - 107 mmol/L [facility] CO2 25 22 - 31 mmol/L [facility] Anion Gap 9 5 - 15 mmol/L [facility] Calcium 8.9 8.5 - 10.5 mg/dL [facility] Estimated GFR 119 >=60 mL/min/1. 73 m?? [facility] Comment: This patient's estimated GFR was [...] and symptoms in addition to eGFR. Blood 07/14/2023 7:00 AM EDT 07/14/2023 7:20 AM EDT Narrative Resulting Agency Comment Spec In Lab Tigre Whiteside MD CHEMISTRY ORDERABLES Performing Organization Address [facility] Co de Phone Number [facility] [place] [address] * EKG 12 Lead (07/14/2023 6:51 AM EDT) Ventricular rate 79 BPM MUSE SYSTEM Atrial Rate 79 BPM MUSE SYSTEM P-R Interval 180 ms MUSE SYSTEM QRS Duration 78 ms MUSE SYSTEM Q-T Interval 408 ms MUSE SYSTEM QTC Calculated (Bezet) 467 ms MUSE SYSTEM Calculated P [place] 2 degrees MUSE SYSTEM Calculated R [place] -14 degrees MUSE SYSTEM Calculated T [place] 16 degrees MUSE SYSTEM INTERPRETATION Normal sinus rhythm Septal infarct , age undetermined Poor R wave progression Abnormal ECG When compared with ECG of 02-JUL-2023 14:20, Septal infarct is now Present I personally reviewed the tracing and edited the fellows interpretation Confirmed by fellow Oscar Kidd ([id number]) on 07/14/2023 9:20:46 AM Confirmed by MD Sophie, Loyda ([id number]) on 07/14/2023 5:28:26 PM MUSE SYSTEM 07/14/2023 6:51 AM EDT 07/14/2023 5:28 PM EDT Tonia Crystal MD ECG ORDERABLES Performing Organization Address City/[facility]/ZIP Co de Phone Number MUSE SYSTEM * POCT Glucose (07/14/2023 6:37 AM EDT) POC Glucose 156 65 - 199 mg/dL [facility] Comment: Supplemental ranges: <140 mg/dL before meals <180 mg/dL all other times of the day Blood 07/14/2023 6:37 AM EDT 07/14/2023 6:37 AM EDT Tigre Whiteside MD POINT OF CARE TEST O RDERABLES [facility] [place] [address] documented in this encounter Visit Diagnoses Diagnosis HFrEF (heart failure with reduced ejection fraction)- Primary Cardiomyopathy, unspecified type Syncope, unspecified syncope type Family history of sudden cardiac Family history of sudden cardiac (SCD) SQ ICD, [employer], single lead Cardiomyopathy, unspecified type Syncope, unspecified syncope type Family history of sudden cardiac Family history of sudden cardiac (SCD) documented in this encounter Admitting Diagnoses Diagnosis HFrEF (heart failure with reduced ejection fraction) documented in this encounter Administered Medications Inactive Administered Medications - up to 3 most recent administrations Medication Order MAR Action Action Date Dose Rate Site acetaminophen (Tylenol) tablet 650 mg 650 mg, Oral, EVERY 6 HOURS PRN, Starting on Thu07/14/23 at 1606, Until Thu07/15/23 at 1459, Pain, Maximum dose of acetaminophen is 4,000 mg from all sources in 24 hours. When ordered for pain, acetaminophen should be given even when other ordered pain medications are indicated. , Routine Given 07/15/2023 12:45 PM EDT 650 mg Given 07/15/2023 7:32 AM EDT 650 mg Given 07/14/2023 10:21 PM EDT 650 mg acetaminophen (Tylenol) tablet 975 mg 975 mg, Oral, ONCE, 1 dose, On Thu07/14/23 at 0700, Administer with a SIP of water only. Maximum dose of acetaminophen is 4,000 mg from all sources in 24 hours., Day of Surgery (Day of Procedure), Routine Given 07/14/2023 6:42 AM EDT 975 mg aspirin EC tablet 81 mg 81 mg, Oral, EVERY EVENING, First dose (after last modification) on Thu07/14/23 at 1700, Until Discontinued, Routine buPROPion (Wellbutrin) tablet 150 mg 150 mg, Oral, 2 TIMES DAILY, First dose on Thu07/14/23 at 1500, Until Discontinued, Routine Given 07/15/2023 8:03 AM EDT [address] (Cymbalta) capsule 40 mg 40 mg, Oral, EVERY EVENING, First dose (after last modification) on Thu07/14/23 at 1700, Until Discontinued Given 07/14/2023 8:25 PM EDT 40 mg estradioL (Estrace) tablet 1 mg 1 mg, Oral, DAILY, First dose on Thu07/15/23 at 0900, Until Discontinued, DO NOT SPLIT, CRUSH OR OPEN, Routine Given 07/15/2023 8:04 AM EDT 1 mg estradioL (Estrace) tablet 1.5 mg 1.5 mg, Oral, EVERY EVENING, First dose on Thu07/14/23 at 1700, Until Discontinued, DO NOT SPLIT, CRUSH OR OPEN, Routine Given 07/14/2023 8:25 PM EDT 1.5 mg HYDROmorphone (Dilaudid) tablet 2 mg 2 mg, Oral, EVERY 4 HOURS PRN, Starting on Thu07/14/23 at 1212, Until Thu07/15/23 at 1459, Pain, Routine Given 07/15/2023 9:14 AM EDT 2 mg Given 07/15/2023 5:17 AM EDT 2 mg Given 07/15/2023 12:25 AM EDT 2 mg lamoTRIgine (LaMICtal) tablet 100 mg 100 mg, Oral, EVERY EVENING, First dose (after last modification) on Thu07/14/23 at 1700, Until Discontinued, Routine Given 07/14/2023 8:25 PM EDT 100 mg levothyroxine (Synthroid) tablet 25 mcg 25 mcg, Oral, EVERY MORNING, First dose on Thu07/15/23 at 0600, Until Discontinued, Routine Given 07/15/2023 5:17 AM EDT 25 mcg magnesium oxide (Mag-Ox) tablet 400 mg 400 mg, Oral, 2 TIMES DAILY, First dose on Thu07/14/23 at 1330, Until Discontinued, Routine Given 07/15/2023 8:05 AM EDT 400 mg Given 07/14/2023 8:24 PM EDT 400 mg pantoprazole EC (Protonix) tablet 20 mg 20 mg, Oral, EVERY EVENING, First dose (after last modification) on Thu07/14/23 at 1700, Until Discontinued Given 07/14/2023 8:24 PM EDT 20 mg pregabalin (Lyrica) capsule 100 mg 100 mg, Oral, 2 TIMES DAILY, First dose on Thu07/14/23 at 1330, Until Discontinued, Routine Given 07/15/2023 8:04 AM EDT 100 mg Given 07/14/2023 8:24 PM EDT 100 mg rosuvastatin (Crestor) tablet 10 mg 10 mg, Oral, EVERY EVENING, First dose on Thu07/14/23 at 1700, Until Discontinued, Routine Given 07/14/2023 5:03 PM EDT 10 mg sacubitriL-valsartan (Entresto) 97-103 mg per tablet 1 tablet 1 tablet, Oral, 2 TIMES DAILY, First dose on Thu07/14/23 at 1330, Until Discontinued, Routine, Is this a continuation of home medication? Yes Given 07/15/2023 8:03 AM EDT 1 tablet Given 07/14/2023 8:23 PM EDT 1 tablet vancomycin (Vancocin) 1.5 gram in sodium chloride 0.9% 500 mL infusion 1.5 g, Intravenous, at 333.3 mL/hr, ONCE, 1 dose, On Thu07/14/23 at 0745, For use in the electrophysiology lab (EP lab) only with direct provider supervision and verbal order., EP (Intra-Procedure), STAT New Bag 07/14/2023 7:40 AM EDT 1.5 g 333.3 m L/hr documented in this encounter Active and Recently Administered Medications Times are shown in EDT. Scheduled Medication Order 07/13/2023 07/14/2023 07/15/2023 acetaminophen (Tylenol) tablet 975 mg (COMPLETED) 975 mg, Oral, ONCE, 1 dose, On Thu07/14/23 at 0700, Administer with a SIP of water only. Maximum dose of acetaminophen is 4,000 mg from all sources in 24 hours., Day of Surgery (Day of Procedure), Routine 0642 (Given - Provider: Nesha Vargas RN) aspirin EC tablet 81 mg 81 mg, Oral, EVERY EVENING, First dose (after last modification) on Thu07/14/23 at 1700, Until Discontinued, Routine 2022 (Not Given - Provider: Carmen Barnett RN - Reason: Patient/family refused - Comment: STATES TOOK DOSE ALREADY) buPROPion (Wellbutrin) tablet 150 mg 150 mg, Oral, 2 TIMES DAILY, First dose on Thu07/14/23 at 1500, Until Discontinued, Routine 1500 (Not Given - Provider: Donna Lemus RN - Reason: Contraindicated - Comment: pt took this AM) 08 (Given - Provider: Donna Lemus, RN) DULoxetine DR (Cymbalta) capsule 40 mg 40 mg, Oral, EVERY EVENING, First dose (after last modification) on Thu07/14/23 at 1700, Until Discontinued 2024 (Given - Provider: Carmen Barnett RN) estradioL (Estrace) tablet 1 mg 1 mg, Oral, DAILY, First dose on Thu07/15/23 at 0900, Until Discontinued, DO NOT SPLIT, CRUSH OR OPEN, Routine 1329 (Not Given - Provider: Donna Lemus RN - Reason: Medication not available) 803 (Given - Provider: Donna Lemus, CHARLY) estradioL (Estrace) tablet 1.5 mg 1.5 mg, Oral, EVERY EVENING, First dose on Thu07/14/23 at 1700, Until Discontinued, DO NOT SPLIT, CRUSH OR OPEN, Routine 2024 (Given - Provider: Carmen Barnett, CHARLY) fluconazole (Diflucan) tablet 150 mg 150 mg, Oral, DAILY, First dose on Thu07/14/23 at 1330, Until Discontinued, DO NOT SPLIT, CRUSH OR OPEN, Routine, Indication for (Active or Suspected): Prophylaxis 1330 (Not Given - Provider: Donna Lemus RN - Reason: Medication not available) 0900 (Not Given - Provider: Donna Lemus RN - Reason: Medication not available) icosapent ethyL (Vascepa) Capsule 2 g 2 g, Oral, 2 TIMES DAILY, First dose on Thu07/14/23 at 1330, Until Discontinued 1329 (Not Given - Provider: Donna Lemus RN - Reason: Medication not available)2100 (Not Given - Provider: Carmen Barnett RN - Reason: Patient/family refused) 0900 (Not Given - Provider: Donna Lemus RN - Reason: Medication not available) lamoTRIgine (LaMICtal) tablet 100 mg 100 mg, Oral, EVERY EVENING, First dose (after last modification) on Thu07/14/23 at 1700, Until Discontinued, Routine 2024 (Given - Provider: Carmen Barnett RN) levothyroxine (Synthroid) tablet 25 mcg 25 mcg, Oral, EVERY MORNING, First dose on Thu07/15/23 at 0600, Until Discontinued, Routine 0517 (Given - Provider: Carmen Barnett RN) magnesium oxide (Mag-Ox) tablet 400 mg 400 mg, Oral, 2 TIMES DAILY, First dose on Thu07/14/23 at 1330, Until Discontinued, Routine 1330 (Not Given - Provider: Donna Lemus RN - Reason: Patient/family refused)2023 (Given - Provider: Carmen Barnett RN) 0805 (Given - Provider: Donna Lemus RN) metFORMIN XR (Glucophage XR) tablet 500 mg 500 mg, Oral, 2 TIMES DAILY, First dose on Thu07/14/23 at 1700, Until Discontinued, Routine 170 (Not Given - Provider: Donna Lemus RN - Reason: Medication not available) 0900 (Not Given - Provider: Donna Lemus RN - Reason: Medication not available) metoprolol succinate XL (Toprol-XL) tablet 100 mg 100 mg, Oral, DAILY, First dose on Thu07/14/23 at 1330, Until Discontinued, DO NOT CRUSH OR OPEN, Routine 1330 (Not Given - Provider: Donna Lemus RN - Reason: Patient/family refused - Comment: pt states that she no longer takes) 0900 (Not Given - Provider: Donna Lemus RN - Reason: Patient/family refused - Comment: pt states she no longer takes) pantoprazole EC (Protonix) tablet 20 mg 20 mg, Oral, EVERY EVENING, First dose (after last modification) on Thu07/14/23 at 1700, Until Discontinued 2023 (Given - Provider: Carmen Barnett RN) pregabalin (Lyrica) capsule 100 mg 100 mg, Oral, 2 TIMES DAILY, First dose on Thu07/14/23 at 1330, Until Discontinued, Routine 1330 (Not Given - Provider: Donna Lemus RN - Reason: Medication not available)2023 (Given - Provider: Carmen Barnett RN) 0804 (Given - Provider: Donna Lemus, RN) rosuvastatin (Crestor) tablet 10 mg 10 mg, Oral, EVERY EVENING, First dose on Thu07/14/23 at 1700, Until Discontinued, Routine 170 (Given - Provider: Donna Lemus, RN) sacubitriL-valsartan (Entresto) 97-103 mg per tablet 1 tablet 1 tablet, Oral, 2 TIMES DAILY, First dose on Thu07/14/23 at 1330, Until Discontinued, Routine, Is this a continuation of home medication? Yes 1330 (Not Given - Provider: Donna Lemus RN - Reason: Patient/family refused)2022 (Given - Provider: Carmen Barnett RN) 0803 (Given - Provider: Donna Lemus, CHARLY) vancomycin (Vancocin) 1.5 gram in sodium chloride 0.9% 500 mL infusion (COMPLETED) 1.5 g, Intravenous, at 333.3 mL/hr, ONCE, 1 dose, On Thu07/14/23 at 0745, For use in the electrophysiology lab (EP lab) only with direct provider supervision and verbal order., EP (Intra-Procedure), STAT 0740 (New Bag - Provider: Nesha Vargas RN)0910 (Due: Stopped - Provider: Nesha Vargas RN) Continuous Medication Order 07/13/2023 07/14/2023 07/15/2023 lactated ringers infusion (CANCELED) 1,000 mL, at 100 mL/hr, Intravenous, CONTINUOUS, Starting on Thu07/14/23 at 0700, Until Thu07/14/23 at 1153, Day of Surgery (Day of Procedure) 0743 (New Bag - Provider: Michelle Pittman CRNA)1037 (Anesthesia Volume Adjustment - Provider: Michelle Pittman CRNA) PRN Medication Order 07/13/2023 07/14/2023 07/15/2023 acetaminophen (Tylenol) tablet 650 mg 650 mg, Oral, EVERY 6 HOURS PRN, Starting on Thu07/14/23 at 1606, Until Thu07/15/23 at 1459, Pain, Maximum dose of acetaminophen is 4,000 mg from all sources in 24 hours. When ordered for pain, acetaminophen should be given even when other ordered pain medications are indicated. , Routine 1623 (Given - Provider: Dia Barajas RN)2221 (Given - Provider: Carmen Barnett RN) 0732 (Given - Provider: Donna Lemus, CHARLY)1245 (Given - Provider: Donna Lemus RN) clonazePAM (KlonoPIN) tablet 1 mg 1 mg, Oral, 2 TIMES DAILY PRN, Starting on Thu07/14/23 at 1242, Until Thu07/15/23 at 1459, Anxiety, DO NOT SPLIT, CRUSH OR OPEN, Routine HYDROmorphone (Dilaudid) tablet 2 mg 2 mg, Oral, EVERY 4 HOURS PRN, Starting on Thu07/14/23 at 1212, Until Thu07/15/23 at 1459, Pain, Routine 1214 (Given - Provider: Leelee Barone RN)1623 (Given - Provider: Dia Barajas RN)2024 (Given - Provider: Carmen Barnett RN) 0025 (Given - Provider: Carmen Barnett RN)0517 (Given - Provider: Carmen Barnett RN)0914 (Given - Provider: Mary Robles RN) loratadine (Claritin) tablet 10 mg 10 mg, Oral, DAILY PRN, Starting on Thu07/14/23 at 1242, Until Thu07/15/23 at 1459, allergies, Routine naratriptan (Amerge) tablet 2.5 mg 2.5 mg, Oral, ONCE PRN, 1 dose, Starting on Thu07/14/23 at 1242, Until Thu07/15/23 at 1459, Migraine, Do not exceed 5mg/24 hours, Routine polyethylene glycoL (Miralax) packet 17 g 17 g, Oral, DAILY PRN, Starting on Thu07/14/23 at 1242, Until 07/15/23 at 1459, Constipation, Routine documented in this encounter Care Teams Fish Liver Sorter Relationship Specialty Start Date End Date Edie Ellis MD [facility] [address] [facility] [address] [place] [address] PCP - General 10/15/10 documented as of this encounter
--- OUTSIDE RECORDS SUMMARY | 2024-06-03 00:23 | XMS_ITS | Encounter Summary ---
Author Organization [facility] Address [facility] [place] [address] Care Team Providers Care Patrol Agent Name Role Phone Edie Ellis MD Primary Care Provider Reason for Visit * Reason Onset Date Comments Medication Refill 07/07/2023 Entresto 97-10 3 mg bid. Encounter Details Date Type Department Care Team (Late st Contact Info) Description 07/07/2023 Refill Cardiology at [address] [address] Kina Awad PA [facility] [place] [address] Medication Refill (Entresto 97-103 mg bid./) Social History Tobacco Use Types Packs/Day Years [...] encounter Miscellaneous Notes * Telephone Encounter - Angélica Polo RN - 07/07/2023 4:54 PM EDT Pt contacted to see what is going on with the Entresto increase. States her pharmacy did not get the prescription increase for the 97-103 mg bid. Prescription pended to ANNE Awad. Pt to call back with any questions/concerns. documented in this encounter Plan of Treatment Upcoming Encounters Date Type Department Care Team (Late st Contact Info) Description 07/09/2024 10:00 AM EDT Hospital Encounter [place] [address] Arrived documented as of this encounter Visit Diagnoses Diagnosis HFrEF (heart failure with reduced ejection fraction) documented in this encounter Care Teams Patrol Agent Relationship Specialty Start Date End Date Edie Ellis MD [address] [place] [address] PCP - General 10/15/10 documented as of this encounter
--- OUTSIDE RECORDS SUMMARY | 2024-06-03 00:23 | XMS_ITS | Encounter Summary ---
[place] [address] Care Team Providers Care Meat Passer Name Role Phone Edie Ellis MD Primary Care Provider [phone] Encounter Details Date Type Department Care Team (Latest Contact Info) Description 10/13/2023 10:00 AM EST - 10/13/2023 11:59 PM EST Hospital Encounter Non-[place] [address] Discharge Disposition: Home Social History Tobacco Use [...] a day 03/12/2015 naloxone (Narcan) 4 mg/actuation [place], Non-Aerosol Once 03/10/2019 magnesium oxide (MAG-OX) [...] AM EDT Hospital Encounter Non-Invasive [place] [address] Arrived documented as of this encounter Procedures Procedure Name Priority Date/Time Associated Diagnosis Comments PRO ICD INTERROGATION REMOTE UP TO 90 DAYS Routine 08/22/2023 2:23 PM EDT documented in this encounter Results * Cardiac Device Check - Remote (08/22/2023 2:23 PM EDT) Anatomical Region Laterality Modality Other 08/22/2023 2:23 PM EDT Tonia Crystal MD IMPLANTABLE CARDIAC DEVICE documented in this encounter Visit Diagnoses Not on filedocumented in this encounter Care Teams Meat Passer Relationship Specialty Start Date End Date Edie Ellis MD [address] [facility] [address] [place] [address] PCP - General 10/15/10 documented as of this encounter
--- OUTSIDE RECORDS SUMMARY | 2024-06-03 00:23 | XMS_ITS | Encounter Summary ---
Author Organization [facility] [place] [address] Care Team Providers Care Cold Water Machine Operator Name Role Phone Edie Ellis MD Primary Care Provider Encounter Details Date Type Department Care Team (Late st Contact Info) Description 01/28/2024 Telephone Cardiology at [address] [phone] Libertad Krishnan Social History Tobacco Use Types Packs/Day Years Used Date Smoking Tobacco: Former Cigarettes 1 - 08/2022 Smokeless Tobacco: Never Comments:no more than 5 a da y - 01/02/2022 Alcohol Use Standard Drinks/Week Comments Yes 0 (1 standard drink = 0.6 oz pur e alcohol) rarely [facility] Inpatient Questions Answer Date Recorded Does Anyone [...] encounter Miscellaneous Notes * Telephone Encounter - Libertad Krishnan - 01/28/2024 12:04 PM EST Request sent to [facility] for EKG strips and Cardiology consult notes from her recent inpatient stays, January 01 & January 14January 21. Her stay was unrelated to cardiac issues, but she had a couple abnormal EKG's and they did have cardiology consult with her while there. Libertad Krishnan EP Scheduling documented in this encounter Plan of Treatment Upcoming Encounters Date Type Department Care Team (Late st Contact Info) Description 07/09/2024 10:00 AM EDT Hospital Encounter Non-Invasive [place] [address] Arrived documented as of this encounter Visit Diagnoses Not on filedocumented in this encounter Care Teams Cold Water Machine Operator Relationship Specialty Start Date End Date Edie Ellis MD [address] [place] [address] PCP - General 10/15/10 documented as of this encounter
--- OUTSIDE RECORDS SUMMARY | 2024-06-03 00:23 | XMS_ITS | Encounter Summary ---
[place] [address] Care Team Providers Care Drugless Physician Name Role Phone Edie Ellis MD Primary Care Provider [phone] Encounter Details Date Type Department Care Team (Latest Contact Info) Description 08/03/2023 Travel Social History Tobacco Use Types Packs/Day [...] AM EDT Hospital Encounter Non-[place] [address] Arrived documented as of this encounter Visit Diagnoses Not on filedocumented in this encounter Care Teams Drugless Physician Relationship Specialty Start Date End Date Edie Ellis MD [address] [place] [address] PCP - General 10/15/10 documented as of this encounter
--- OUTSIDE RECORDS SUMMARY | 2024-06-03 00:23 | XMS_ITS | Encounter Summary ---
Author Organization [facility] Address [facility] [place] [address] Care Team Providers Care Programmer Business Name Role Phone Edie Ellis MD Primary Care Provider [phone] Encounter Details Date Type Department Care Team (Late st Contact Info) Description 07/15/2023 Orders Only Cardiology at [address] [place] [address] Hero Taylor MD [facility] [place] [address] Dilated cardiomyopathy Social History Tobacco Use Types Packs/Day Years [...] as of this encounter Progress Notes * Hero Taylor MD - 07/15/2023 8:33 AM EDT Pt s/p SQ ICD. Non-inducible at time for DFT determination. Scheduling for repeat attempt at DFT per Dr. Willson. documented in this encounter Plan of Treatment Upcoming Encounters Date Type Department Care Team (Late st Contact Info) Description 07/09/2024 10:00 AM EDT Hospital Encounter Non-[place] [address] Arrived documented as of this encounter Visit Diagnoses Diagnosis Dilated cardiomyopathy Other primary cardiomyopathies documented in this encounter Care Teams Programmer Business Relationship Specialty Start Date End Date Edie Ellis MD [facility] [address] [place] [address] PCP - General 10/15/10 documented as of this encounter
--- OUTSIDE RECORDS SUMMARY | 2024-06-03 00:23 | XMS_ITS | Encounter Summary ---
[place] [address] Care Team Providers Care Manager [employer] Name Role Phone Edie Ellis MD Primary Care Provider [phone] Encounter Details Date Type Department Care Team (Latest Contact Info) Description 07/23/2023 Travel Social History Tobacco Use Types Packs/Day [...] AM EDT Hospital Encounter Non[place] [address] Arrived documented as of this encounter Visit Diagnoses Not on filedocumented in this encounter Care Teams Manager [employer] Sigma Relationship Specialty Start Date End Date Edie Ellis MD [address] [place] [address] PCP - General 10/15/10 documented as of this encounter
--- OUTSIDE RECORDS SUMMARY | 2024-06-03 00:23 | XMS_ITS | Encounter Summary ---
Author Organization [facility] [place] [address] Care Team Providers Care Environmental Health Inspector Name Role Phone Edie Ellis MD Primary Care Provider [phone] Reason for Visit * Auth/Cert (Routine) Specialty Diagnoses / Procedures Referred By Geraldine t Referred To Contact Diagnoses Cardiomyopathy, unspecified type [I42.9]Syncope, unspecified syncope type [R55]Family history of sudden cardiac [Z82.41] Procedures ELECTROPHYSIOLOGY PROCEDURE Tigre Whiteside MD [facility] [place] [address] [facility] Referral ID Status Reason Start Date Expiration Date Visits Re quested Visits Authorized [id number] 1 1 Encounter Details Date Type Department Care Team (Late st Contact Info) Description 07/14/2023 7:30 AM EDT - 07/14/2023 11:00 AM EDT Surgery [place] [address] Tigre Whiteside MD [facility] DR CARDIOLOGY DEPT. [place], [place] [id number] ELECTROPHYSIOLOGY PROCEDURE Social History Tobacco Use Types Packs/Day Years [...] Sign Reading Time Taken Comments Blood Pressure 120/79 07/14/2023 11:00 AM EDT Pulse 82 07/14/2023 11:00 AM EDT Temperature 36.3 ??C (97.3 ??F) 07/14/2023 1 0:51 AM EDT Respiratory Rate 16 07/14/2023 11:0 0 AM EDT Oxygen Saturation 99% 07/14/2023 11: 00 AM EDT Inhaled Oxygen Concentration - - Weight 95.1 kg (209 lb 11.2 oz) 07/14/2023 6:37 AM EDT Height - - Body Mass Index 35.98 07/03/2023 11:16 AM EDT documented in this encounter Discharge Summaries * Hunter Mcclain PA - 07/15/2023 10:32 AM EDT Images from the original note were not included. Discharge Summary Patient Name: Jammie Gottlieb Patient Age: 48 y.o. Language: Argentine Race: White Ethnicity: Not nor Admit date: 07/14/2023 Discharge date and time: 07/15/2023 1100 Attending Physician: Tigre Whiteside MD Discharge Physician: Tigre Whiteside MD Follow-up Recommendations for Providers: NEW - [employer] subcutaneous ICD Device function is normal Stable for discharge to home Scheduled for ~ day post implant device follow up in device clinic Scheduled for DFT test - Arrive 0700 to Same Day for DFT on Thursday, August 07 Reports moderate pain(expected at implant site), refractory to acetaminophen/ice - #20 hyrdomorphone Refill provided; zero refills Inpatient Provider Contact Information: Cardiac Electrophysiology [phone], option #3 Discharge Diagnoses (Hospital Problems) and Secondary Diagnoses (Chronic Problems): Active Hospital Problems Diagnosis HFrEF (heart failure with reduced ejection fraction) SQ ICD, [employer], single lead Resolved Hospital Problems No [...] for primary prevention subcutaneous ICD. Hospital Course: [employer] SQ ICD implanted without complication. Non-inducible [...] Data is abnormally low Treatments: Device Data: School Clerk Model # Serial # Generator [employer] [id number] Ventricular Lead [employer] [id number] Impedance (ohms) Shock (10J) 87 Programming: Rate [...] 1 capsule Refills: 0 naloxone 4 mg/actuation Challis, Non-Aerosol Commonly known as: Narcan Once Refills: [...] the incision. Make sure to use a machine cloth measurer (such as a towel) in between the [...] if you have any personal concerns, contact [facility] Electrophysiology at [phone]. Do not attempt to readjust the Clozex?? [...] questions. The office scheduling phone number is [phone]. If you have any questions or concerns about this product, please call the device clinic at [phone]. General Instructions None Future Appointments and Orders Future Appointments and Orders Future Appointments Provider Department Dept Phone 07/20/2023 1:00 PM PRE ANESTHESIA, CONSULT Same Day at [facility] Arrive at: Home [phone] To view instructions for your video visit, click here, or visit this website: [email or web address] If you have not previously downloaded the [facility] patient portal software, Wochacha, or the My eShoe joe, please do so by clicking one [...] 9:30 AM Tila Elmore RN Cardiology at [facility] Arrive at: [place] [facility] [phone] 10/13/2023 9:30 AM Tila Elmore RN Cardiology at [facility] Arrive at: [place] [facility] [phone] Discharge References/Attachments None documented in this encounter Discharge Instructions * Patient Instructions* Hunter Mcclain PA - 07/14/2023 10:55 AM EDT FINAL ICD RECOMMENDATIONS: 1. Standard post implant discharge instructions (see below): 2. Medications as listed above. 3. You may use ice packs over the incision. Make sure to use a machine cloth measurer (such as a towel) in between the [...] if you have any personal concerns, contact [facility] Electrophysiology at [phone]. Do not attempt to readjust the Clozex?? [...] questions. The office scheduling phone number is [phone]. If you have any questions or concerns about this product, please call the device clinic at [phone]. documented in this encounter Medications at Time [...] a day 03/12/2015 naloxone (Narcan) 4 mg/actuation Challis, Non-Aerosol Once 03/10/2019 magnesium oxide (MAG-OX) 400 [...] Lemus RN - 07/15/2023 12:51 PM EDT [facility] Short Stay Unit Discharge Note All relevant [...] failure with reduced ejection fraction) SQ ICD, [employer], single lead Resolved Hospital Problems No resolved problems to display. Interval History: 48 y.o. female with a history of non-ischemic cardiomyopathy with known TTN gene, HTN, DM2, syncope, EF 42%, admitted for primary prevention subcutaneous ICD. [employer] SQ ICD implanted without complication. Non-inducible [...] 199 mg/dL Pertinent Radiographic/Diagnostic Results: Device Data: School Clerk Model # Serial # Generator [employer] [id number] Ventricular Lead [employer] [id number] Impedance (ohms) Shock (10J) 87 Programming: Rate [...] 42%, admitted for primary prevention subcutaneous ICD. [employer] SQ ICD implanted without complication. Non-inducible for VT/VF. 10j shock impedance = 87 ohms. Plan: Device function is normal Stable for discharge to home Scheduled for DFT test - Arrive 0700 to Same Day for DFT on August 07 Provider: ANNE Oneal EP Consult attending physician: Juan Taylor MD EP Consult positional pager #[phone](EPMD) EP Device interrogation positional pager # [phone] Associated attestation - Hero Taylor MD - [...] ~ 10 days. Hero Taylor MD, PhD, [facility] Cardiac Electrophysiology * Leelee Barone RN - 07/14/2023 11:10 AM EDT 1050: aJmmie Gottlieb arrived from in a bed to PACU 1. Pt was attached to monitors, alarms set appropriately & audible. NSR on physician neonatology, lungs are clear. Sternal & Flank sites [...] injection 150 mg 30 mL Subcutaneous Once Tgire Whiteside MD vancomycin (Vancocin) 1.5 gram in sodium chloride 0.9% 500 mL infusion 1.5 g Intravenous Once Tigre Whiteside MD PAST SURGICAL HISTORY: Past Surgical History: Procedure Laterality Date SECTION LUMBAR LAMINECTOMY PRO PERCUT IMPLNT NEUROELECT, EPIDURAL 06/03/2012 PERC IMPLANTATION NEUROSTIMULATOR ELECTRODE ARRAY, EPIDURAL performed by CARINE CHATTERJEE at [facility] MAIN OR PRO UNLISTED PROCEDURE, MUSCULOSKELETAL SYSTEM, [...] completed. Hola Mahan MD Cardiac Electrophysiology Fellow [facility] Pager [phone] 07/14/2023 Addendum 48 y.o.woman with longstanding NICM, [...] visit, click here, or visit this website: [email or web address] If you have not previously downloaded the [facility] patient portal software, Wochacha, or the My eShoe joe, please do so by clicking one [...] AM (Arrive by 9:10 AM) Cardiology at [address] [address] Arrive at: [place] [facility] 4A OCT 13 Office Visit with Tila Anand RN Thursday 9:30 AM (Arrive by 9:10 AM) Cardiology at [address] [address] Arrive at: [place] [facility] 4A Transportation: family or friend will [...] AM EDT Hospital Encounter Non-Invasive [place] [address] Arrived documented as of this encounter Procedures [...] who have questions please contact the health small animal caretaker that requested your imaging first. ? Electronically signed by: Radha Brown MD, [facility] ??([phone]), at 07/15/2023 8:35 AM Narrative 07/15/2023 8:35 AM EDT EXAMINATION: XR [...] patients who have questions please contactthe health small animal caretaker that requested your imaging first. Electronically signed by: Radha Brown MD, [facility]([phone]), at 07/15/2023 8:35 AM Tigre Whiteside MD IMG DX ORDERABLES * POCT Glucose (07/14/2023 10:55 AM EDT) POC Glucose 135 65 - 199 mg/dL [facility] Comment: Supplemental ranges: <140 mg/dL before meals <180 mg/dL all other times of the day Blood 07/14/2023 10:5 5 AM EDT 07/14/2023 10:55 AM EDT Tigre Whiteside MD POINT OF CARE TEST O RDERABLES Performing Organization Address City/State/[facility] Co de Phone Number [facility] [place] [address] * ELECTROPHYSIOLOGY PROCEDURE (07/14/2023 8:45 AM EDT) Anatomical Region Laterality Modality Other Narrative 07/14/2023 3:32 PM EDT Table formatting from the original result was not included. [facility] Electrophysiology Procedure Note Patient Name: Jammie Gottlieb Patient : 1975 Pocket Setter Lockstitch: Tigre Whiteside MD Fellow: Hola Mahan MD [...] the entire procedure. Lead and Generator Data: School Clerk Model # Serial # Generator [employer] [id number] Ventricular Lead [employer] [id number] Data: Impedance (ohms) Shock (10J) 87 Programming: [...] defibrillation threshold testing (attempted) I was the vertical lathe operator, present for the entire procedure and personally edited this note TIGRE WHITESIDE MD Tigre Whiteside MD EP PROCEDURE ORDERAB LES * (ABNORMAL) Basic Metabolic Panel (non-fasting) (07/14/2023 7:00 AM EDT) Glucose Lvl 161 65 - 199 mg/dL [facility] Comment:Diabetes: >=200 mg/d L plus symptoms BUN 14 8 - 18 mg/dL [facility] Creatinine 0.44(L) 0.70 - 1.20 mg/dL [facility] Sodium 139 135 - 145 mmol/L [facility] Potassium 4.6 3.5 - 5.0 mmol/L [facility] Comment: Please note: ??Patients with WBC >100,000 may have falsely elevated Potassium levels. ??For accurate Potassium quantification in these patients send serum separator tube (gold top) for subsequent determinations. ??Contact the Clinical Chemistry Laboratory if there are any questions. Chloride 105 98 - 107 mmol/L [facility] CO2 25 22 - 31 mmol/L [facility] Anion Gap 9 5 - 15 mmol/L [facility] Calcium 8.9 8.5 - 10.5 mg/dL [facility] Estimated GFR 119 >=60 mL/min/1. 73 m?? [facility] Comment: This patient's estimated GFR [...] Whiteside MD CHEMISTRY ORDERABLES Performing Organization Address City/[facility]/ZIP Co de Phone Number [facility] [place] [address] * EKG 12 Lead (07/14/2023 6:51 AM EDT) Ventricular rate 79 BPM MUSE SYSTEM Atrial Rate 79 BPM MUSE SYSTEM P-R Interval 180 ms MUSE SYSTEM QRS Duration 78 ms MUSE SYSTEM Q-T Interval 408 ms MUSE SYSTEM QTC Calculated (Bezet) 467 ms MUSE SYSTEM Calculated P [place] 2 degrees MUSE SYSTEM Calculated R [place] -14 degrees MUSE SYSTEM Calculated T [place] 16 degrees MUSE SYSTEM INTERPRETATION Normal sinus rhythm Septal infarct , age undetermined Poor R wave progression Abnormal ECG When compared with ECG of 02-JUL-2023 14:20, Septal infarct is now Present I personally reviewed the tracing and edited the fellows interpretation Confirmed by fellow Oscar Kidd ([id number]) on 07/14/2023 9:20:46 AM Confirmed by MD Sophie, Loyda ([id number]) on 07/14/2023 5:28:26 PM MUSE SYSTEM 07/14/2023 6:51 AM EDT 07/14/2023 5:28 PM EDT Tonia Crystal MD ECG ORDERABLES Performing Organization Address City/[facility]/ZIP Co de Phone Number MUSE SYSTEM * POCT Glucose (07/14/2023 6:37 AM EDT) POC Glucose 156 65 - 199 mg/dL [facility] Comment: Supplemental ranges: <140 mg/dL before meals <180 mg/dL all other times of the day Blood 07/14/2023 6:37 AM EDT 07/14/2023 6:37 AM EDT Tigre Whiteside MD POINT OF CARE [place] [address] documented in this encounter Visit Diagnoses Diagnosis HFrEF (heart failure with reduced ejection fraction)- Primary Cardiomyopathy, unspecified type Syncope, unspecified syncope type Family history of sudden cardiac Family history of sudden cardiac (SCD) Cardiomyopathy, unspecified type Syncope, unspecified syncope type [...] on Thu07/14/23 at 1700, Until Discontinued, Routine 2023 (Not Given - Provider: Carmen Barnett RN - Reason: Patient/family refused - Comment: STATES TOOK DOSE ALREADY) buPROPion (Wellbutrin) tablet 150 mg 150 mg, Oral, 2 TIMES DAILY, First dose on Thu07/14/23 at 1500, Until Discontinued, Routine 1500 (Not Given - Provider: Donna Lemus RN - Reason: Contraindicated - Comment: pt took this AM) 08 (Given - Provider: Donna Lemus RN) DULoxetine DR (Cymbalta) capsule 40 mg [...] Lemus RN - Reason: Medication not available) 08 (Given - Provider: Donna Lemus RN) estradioL (Estrace) tablet 1.5 mg 1.5 mg, Oral, EVERY EVENING, First dose on Thu07/14/23 at 1700, Until Discontinued, DO NOT SPLIT, CRUSH OR OPEN, Routine 2024 (Given - Provider: Carmen Barnett RN) fluconazole (Diflucan) tablet 150 mg 150 mg, Oral, DAILY, First dose on Thu07/14/23 at 1330, Until Discontinued, DO NOT SPLIT, CRUSH OR OPEN, Routine, Indication for (Active or Suspected): Prophylaxis 1330 (Not Given - Provider: Donna Lemus RN - Reason: Medication not available) 0900 (Not Given - Provider: Donna Lemus, CHARLY - Reason: Medication not available) icosapent ethyL (Vascepa) Capsule 2 g 2 g, Oral, 2 TIMES DAILY, First dose on Thu07/14/23 at 1330, Until Discontinued 1330 (Not Given - Provider: Donna Lemus [...] Discontinued, Routine 2024 (Given - Provider: Carmen Barnett, CHARLY) levothyroxine (Synthroid) tablet 25 mcg 25 mcg, Oral, EVERY MORNING, First dose on Thu07/15/23 at 0600, Until Discontinued, Routine 0517 (Given - Provider: Carmen Barnett, CHARLY) magnesium oxide (Mag-Ox) tablet 400 mg 400 mg, Oral, 2 TIMES DAILY, First dose on Thu07/14/23 at 1330, Until Discontinued, Routine 133 (Not Given - Provider: Donna Lemus RN [...] Until Discontinued 2023 (Given - Provider: Carmen Barnett, CHARLY) pregabalin (Lyrica) capsule 100 mg 100 mg, Oral, 2 TIMES DAILY, First dose on Thu07/14/23 at 1330, Until Discontinued, Routine 1330 (Not Given - Provider: Donna Lemus, RN - Reason: Medication not available)2023 (Given - Provider: Carmen Barnett, CHARLY) 0804 (Given - Provider: Donna Lemus, RN) [...] Dia Barajas RN)2221 (Given - Provider: Carmen Barnett, CHARLY) 0732 (Given - Provider: Donna Lemus, CHARLY)1245 [...] Barone RN)1623 (Given - Provider: Dia Barajas RN)2025 (Given - Provider: Carmen Barnett RN) 0025 [...] Thu07/14/23 at 1242, Until Thu07/15/23 at 1459, Constipation, Routine documented in this encounter Care Teams Environmental Health Inspector Relationship Specialty Start Date End Date Edie Ellis MD [address] [place] [address] PCP - General 10/15/10 documented as of this encounter
--- OUTSIDE RECORDS SUMMARY | 2024-06-03 00:23 | XMS_ITS | Encounter Summary ---
Author Organization [facility] Address [facility] [place] [address] Care Team Providers Care Agricultural Crop Farm Manager Name Role Phone Edie Ellis MD Primary Care Provider [phone] Reason for Visit * Reason Onset Date Comments Pre Procedure Call 09/08/2023 Encounter Details Date Type Department Care Team (Late st Contact Info) Description 09/08/2023 [place] [phone] Shabbir Kaminski MD [facility] [place] [address] Pre Procedure Call Social History Tobacco Use [...] encounter Miscellaneous Notes * Telephone Encounter - Annette May - 09/08/2023 10:15 AM EDT I called and left a message for patient to call [phone] directly and schedule surgery with Dr. KAMINSKI. documented in this encounter Plan of Treatment Upcoming Encounters Date Type Department Care Team (Late st Contact Info) Description 07/09/2024 10:00 AM EDT Hospital Encounter Non-Invasive [place] [address] Arrived documented as of this encounter Visit Diagnoses Not on filedocumented in this encounter Care Teams Agricultural Crop Farm Manager Relationship Specialty Start Date End Date Edie Ellis MD [facility] [address] [place] [address] PCP - General 10/15/10 documented as of this encounter
--- OUTSIDE RECORDS SUMMARY | 2024-06-03 00:23 | XMS_ITS | Encounter Summary ---
Author Organization [facility] [place] [address] Care Team Providers Care Solicitor Patent Name Role Phone Edie Ellis MD Primary Care Provider [phone] Encounter Details Date Type Department Care Team (Late st Contact Info) Description 07/30/2023 Telephone Cardiology at [address] [phone] Alexandria Cornell, RN Social History Tobacco Use Types Packs/Day Years [...] encounter Miscellaneous Notes * Telephone Encounter - Alexandria Cornell RN - 07/30/2023 1:12 PM EDT RTC to patient who reports that yesterday she noticed both surgical incisions were red, warm, painful, and had green discharge. She went to [facility] in [facility] and was treated for infection. States they cleaned both incisions, applied a similar dressing, and prescribed Clindamycin 450 mg TID. Patient is calling to inquire on how long she needs to leave this dressing in place and wound care instructions after removing. Alexandria Cornell hotel operation manager Clinic at [facility] [phone] documented in this encounter Plan of Treatment Upcoming Encounters Date Type Department Care Team (Late st Contact Info) Description 07/09/2024 10:00 AM EDT Hospital Encounter [place] [address] Arrived documented as of this encounter Visit Diagnoses Not on filedocumented in this encounter Care Teams Solicitor Patent Relationship Specialty Start Date End Date Edie Ellis MD [address] [place] [address] PCP - General 10/15/10 documented as of this encounter
--- OUTSIDE RECORDS SUMMARY | 2024-06-03 00:23 | XMS_ITS | Encounter Summary ---
Author Organization [facility] [place] [address] Care Team Providers Care Plant Superintendent Name Role Phone Edie Ellis MD Primary Care Provider [phone] Encounter Details Date Type Department Care Team (Late st Contact Info) Description 07/06/2023 Telephone Cardiology at [address] [phone] Loretta Carreon, RN Social History Tobacco Use Types Packs/Day [...] Telephone Encounter - Loretta Carreon RN - 07/06/2023 11:26 AM EDTSummary: Pre Procedure Call: SQ ICD implant EP MEDICAL RECORD SPECIALIST COORDINATION CHECKLIST Patient Name: Jammie Gottlieb Patient Performing Metal Riveter: Jonathan Willson Referring Provider: Kina Awad Date of Procedure:07/14/23 Arrival Time/ Case Time: 6:00 am / 7:30 am Check In Location: Utility Operator Desk 4W Date Patient was Called: 07/06/23 Procedure: ICD [place] [facility] [place] SQ ICD Laterality: LEFT Orders: Yes Lab Orders: Yes Anesthesia: GA Discharge Plan/Disposition: OVERNIGHT/SSU Med Instructions: ARB - hold Entresto the AM of procedure OTHER - STOP Jardiance beginning 3 days prior to procedure (no doses from 07/11-07/14) Anticoag Type: N/A DM: Yes Instructions for DM medications: Hold metformin beginning 48 hrs prior to procedure (no doses from 07/12 - 07/14) HIBICLENS?: Yes Contrast Allergy: N/A ABX allergies: Penicillins (anaphylaxis), Sulfas Coming from an assisted living facility?: No Any recent S/S of infection (fevers, on oral ABX)?: No Other Instructions: Clear liquids (water, apple juice, kristen kimberlee) OK up until 2 hrs prior to procedure, nothing to eatafter midnight on day of procedure.Same Day will call 07/13. If applicable will bring CPAP from home. Will be staying overnight , understands that they will need driver supervisor on day of discharge Notified pt that Rao catheter may be placed on day of procedure depending on type & duration of case. documented in this encounter Plan of Treatment Upcoming Encounters Date Type Department Care Team (Late st Contact Info) Description 07/09/2024 10:00 AM EDT Hospital Encounter Non-[place] [phone] Arrived documented as of this encounter Visit Diagnoses Not on filedocumented in this encounter Care Teams Plant Superintendent Relationship Specialty Start Date End Date Edie Ellis MD [address] [place] [address] PCP - General 10/15/10 documented as of this encounter
--- OUTSIDE RECORDS SUMMARY | 2024-06-03 00:23 | XMS_ITS | Encounter Summary ---
Author Organization [facility] Address [facility] [place] [address] Care Team Providers Care Station Cook Name Role Phone Edie Ellis MD Primary Care Provider [phone] Encounter Details Date Type Department Care Team (Latest Contact Info) Description 08/07/2023 6:55 AM EDT - 08/07/2023 10:20 AM EDT Hospital Encounter [place] [address] Jonathan Willson MD [facility] [place] [address] Dilated cardiomyopathy Discharge Disposition: Home Social History Tobacco Use [...] Sign Reading Time Taken Comments Blood Pressure 98/82 08/07/2023 9:45 AM EDT Pulse 91 08/07/2023 9:45 AM EDT Temperature 36.1 ??C (97 ??F) 08/07/2023 9:04 AM EDT Respiratory Rate 14 08/07/2023 9:45 AM EDT Oxygen Saturation 93% 08/07/2023 9:45 AM EDT Inhaled Oxygen Concentration - - Weight 92.5 kg (204 lb) 08/07/2023 7:41 AM EDT Height 162.6 cm (5' 4) 08/07/2023 7:41 AM EDT Body Mass Index 35.02 08/07/2023 7:41 AM EDT documented in this encounter Discharge Instructions * Patient Instructions* Miguel Connelly MD - 08/07/2023 9:51 AM EDT FINAL ICD/PACEMAKER RECOMMENDATIONS: DEVICE CLINIC 1. You will be scheduled for a ~10 day wound check in the Device Clinic for: [...] particular coverage. WOUND CARE FOR YOUR INCISION: How to Care for your Incision: - [...] skin has had sufficient time to heal - You may wash the wound gently with soap and water (unless there is DermaBond on the incision - see below) - Do not submerge the incision (bathtubs, hot tubs, or swimming) for at least two weeks Your incision has been covered with a Mepilex dressing. - This dressing will stay on for 7 days. - If the edges pull up substantially or fluid gets underneath the Mepilex dressing, remove it sooner - Once removed, you may notice some grayish discoloration. This is normal. Your incision has been closed with: SteriStrips - These are thin adhesive strips placed over your incision to help it heal. - Leave them in place until they fall off (approximately 10-14 days) - Do not scratch, rub, or pick at them. This may pull at your incision before it is completely healed, which can increase the risk of infection. CALL IMMEDIATELY: If you develop chest pain, shortness of breath, bleeding, discharge from the incision, opening of the incision and/or fever/temperature >100 degrees F. The office scheduling phone number is [phone]. documented in this encounter Medications at Time [...] a day 03/12/2015 naloxone (Narcan) 4 mg/actuation [place], Non-Aerosol Once 03/10/2019 magnesium oxide (MAG-OX) 400 [...] daily. 01/29/2024 documented as of this encounter H&P Notes * Jonathan Willson MD - 08/07/2023 7:58 AM EDT Images from the original note were not included. Jammie Gottlieb 1975 [id number] Primary Care Physician Edie Ellis MD 08/07/23 Cardiology Electrophysiology History and Physical - Same Day History Jammie Gottlieb is here for elective SQ ICD DFT test They were seen in the EP clinic 08/03/2023 From that visit '.. 48 y.o. female with a history of [...] ANNE Miller assessed sites today, EKG ordered. 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 15 capsule 0 08/06/2023 Biotin 5 mg capsule As directed, every three days 0 08/06/2023 multivitamin Capsule Take 1 capsule by mouth daily. 08/06/2023 dapagliflozin propanediol (Farxiga) 5 mg tablet Take 5 mg by mouth daily. Past Week sacubitriL-valsartan (Entresto) 97-103 mg tablet Take 1 tablet by mouth 2 times daily. 180 tablet 3Past Week pregabalin (Lyrica) 100 mg capsule Take 100 mg by mouth 2 times daily. 08/06/2023 fluconazole (Diflucan) 150 mg tablet Take 150 mg by mouth as needed. Past Month clonazePAM (KlonoPIN) 1 mg tablet Take 1 mg by mouth 2 times daily as needed. Past Month icosapent ethyL (Vascepa) 1 gram capsule Take 2 g by mouth 2 times daily. 120 capsule 11 08/06/2023 omega-3 acid ethyl esters (Lovaza) 1 gram capsule Take 2 capsules by mouth 2 times daily. 120 capsule 5 08/06/2023 metoprolol succinate XL (Toprol-XL) 100 mg ER 24 hr tablet Take 1 tablet by mouth daily. 90 tablet 3 08/06/2023 duloxetine HCl (CYMBALTA ORAL) Take 30 mg by mouth daily. New dose from 40 mg to 30 mg 08/06/2023 bupropion HCl (WELLBUTRIN ORAL) Take 150 mg by mouth 2 times daily. 08/06/2023 Trulicity 3 mg/0.5 mL Pen Injector once a week. Past Week prochlorperazine (Compazine) 10 mg Tablet Take 10 mg by mouth as needed. 08/06/2023 valACYclovir (Valtrex) 500 mg Tablet Take 500 mg by mouth nightly. 08/06/2023 cholecalciferol, Vitamin D3, 50 mcg (2,000 unit) Capsule TAKE 1 CAPSULE BY MOUTH DAILY 08/06/2023 cyanocobalamin, Vitamin B-12, (Vitamin B-12) 1,000 mcg Tablet TAKE 1 TABLET BY MOUTH EVERY DAY 08/06/2023 estradioL (Estrace) 1 mg Tablet 2 times daily. 08/06/2023 lamoTRIgine (LaMICtal) 100 mg Tablet TAKE 1 TABLET BY MOUTH EVERY DAY 08/06/2023 levothyroxine (Synthroid) 25 mcg Tablet Bedtime 08/06/2023 loratadine (Claritin) 10 mg Tablet TAKE 1 TABLET BY MOUTH EVERY DAY NEEDED 08/06/2023 metFORMIN XR (Glucophage XR) 500 mg Tablet Sustained Release 24 hr Twice a day 08/06/2023 magnesium oxide (MAG-OX) 400 mg tablet Take 400 mg by mouth 2 times daily. 08/06/2023 Riboflavin 25 mg Tablet Take 200 mg by mouth 2 times daily. 08/06/2023 VITAMIN B COMPLEX & VIT C NO.3 (VITAMIN B COMP & C NO.3 ORAL) Take 1 mg by mouth. 08/06/2023 aspirin 81 mg EC tablet Take 81 mg by mouth daily. 08/06/2023 rosuvastatin (CRESTOR) 10 mg tablet Take 10 mg by mouth every evening. 08/06/2023 omeprazole (PRILOSEC) 20 mg capsule Take 20 mg by mouth daily. 08/06/2023 HYDROmorphone (Dilaudid) 2 mg tablet Take 1 tablet by mouth every 4 hours as needed for Pain. 20 tablet 0 naproxen (NAPROSYN) 500 mg Tablet 2 times daily. Unknown hydrocortisone 2.5 % Cream as needed. Aerochamber Max with Flow-VU Spacer USE DIRECTED naloxone (Narcan) 4 mg/actuation [place], Non-Aerosol Once valACYclovir (VALTREX) 1 g tablet Take 1,000 mg by mouth as needed. naratriptan (AMERGE) 2.5 mg tablet Take 2.5 mg by mouth as needed. Take one (1) tablet at onset of headache; if returns or does not resolve, may repeat after 4 hours; do not exceed five (5) mg in 24 hours. Unknown polyethylene glycol (MIRALAX) 17 gram packet Take 17 g by mouth as needed. More than a month albuterol (PROVENTIL HFA;VENTOLIN HFA) 90 mcg/Actuation inhaler Inhale 2 puffs into the lungs every4 hours as needed. Use with spacer Family History Problem Relation Age of Onset Alcohol Use Disorder Mother Diabetes Mother plus others Cancer Maternal Aunt overian Diabetes Maternal Grandmother Stroke Maternal Grandmother Diabetes Maternal Grandfather Diabetes Maternal Uncle Diabetes Paternal Grandmother Social History Socioeconomic History Marital status: Spouse name: Not on file Number of children: Not on file Years of education: Not on file Highest education level: Not on file Occupational History Not on file Tobacco Use Smoking status: Former Years: 3.00 Types: Cigarettes Quit date: 08/2022 Years since quittin.9 Smokeless tobacco: Never Tobacco comments: no more [...] on file Physical Activity: Not on file Housing Stability: Not on file Exam Patient Vitals for the past 24 hrs: Temp Pulse Resp BP SpO2 08/07/23 0741 36.9 ??C (98.4 ??F) 87 18 109/76 97 % Physical Exam Constitutional: Comments: Body mass index is 35.02 kg/m??. Cardiovascular: Rate and Rhythm: Normal rate. Pulmonary: Effort: Pulmonary effort is normal. Skin: General: Skin is warm. Neurological: General: No focal deficit present. Mental Status: She is alert. Impression This is a 48 y.o. woman with a primary prevention ICD here for DFT testing. She was not inducible at initial implant, with GETA. This is to test for induction of DFT and appropriate rescue, with a briefer period of sedation. If VF is not inducible today, no further DFT testing would be planned (as this is a primary prevention device) We discussed risks of the procedure. Written consent obtained Will record changer her dressings today JONATHAN WILLSON MD 08/07/2023 Pager [phone] Plan 1) Anticipate DFT test 2) Discharge to home later today 3) Consent in physical chart ASA: 3: Patient with severe systemic disease Mallampati: III: only the base of the uvula can be seen Sedation Plan: anesthesia JONATHAN WILLSON MD Recent Results (from the past 24 hour(s)) POCT Glucose Result Value Ref Range POC Glucose 152 65 - 199 mg/dL Addendum - labs Latest Reference Range & Units 08/07/23 07:38 Sodium 135 - 145 mmol/L 137 Potassium 3.5 - 5.0 mmol/L 4.7 Chloride 98 - 107 mmol/L 102 CO2 22 - 31 mmol/L 26 Anion Gap 5 - 15 mmol/L 9 BUN 8 - 18 mg/dL 17 Creatinine 0.70 - 1.20 mg/dL 0.52 (L) Estimated GFR >=60 mL/min/1.73 m?? 115 Calcium 8.5 - 10.5 mg/dL 9.1 (L): Data is abnormally low documented in this encounter Plan of Treatment Upcoming Encounters Date Type Department Care Team (Late st Contact Info) Description 07/09/2024 10:00 AM EDT Hospital Encounter Non-[place]vasive [place] [phone] Arrived documented as of this encounter Procedures Procedure Name Priority Date/Time Associated Diagnosis Comments ELECTROPHYSIOLOGY PROCEDURE Routine 08/07/2023 8:37 AM EDT Dilated cardiomyopathy POCT GLUCOSE Routine 08/07/2023 7:46 AM EDT HC VENIPUNCTURE STAT 08/07/2023 7:38 AM EDT documented in this encounter Results * ELECTROPHYSIOLOGY PROCEDURE (08/07/2023 8:37 AM EDT) Anatomical Region Laterality Modality Other Impressions 08/07/2023 3:16 PM EDT : Acceptable ICD function. System impedance is acceptable VF not inducible (at implant and today) I was the electric furnace operator, present for the entire procedure and personally edited this note JONATHAN WILLSON MD Narrative 08/07/2023 3:16 PM EDT SQ ICD Surveillance, Monitored Anesthesia Care Indication: Assessment of defibrillation thresholds, unable to induce VF at initial implant Operators: ??Reinaldo Connelly MD; Jonathan DIXON.[facility]. Procedure: The patient was brought to the Electrophysiology Lab in the fasting state and continuous electrocardiographic monitoring was instituted. ICD evaluation and DFT testing was performed under moderate sedation with monitored anesthesia care ICD Evaluation: [employer] Emblem A219 Device Serial Number: [id number] Battery: 100% to LISA A 10 joule test shock showed system impedance of 75 ohms 50 hz stimulation was performed twice (the first time induced AF but not VF) On both occasions, there was no induction of VF AF was induced by the first induction attempt, after the second induction attempt this was converted with a 150 joule synchronised cardioversion to sinus rhythm 80 bpm Jonathan Willson MD EP PROCEDURE ORDERAB LES * POCT Glucose (08/07/2023 7:46 AM EDT) [facility] POC Glucose 152 65 - 199 mg/dL [facility] Comment: Supplemental ranges: <140 mg/dL before meals <180 mg/dL all other times of the day Blood 08/07/2023 7:46 AM EDT 08/07/2023 7:46 AM EDT Jonathan iWllson MD POINT OF CARE TEST O RDERABLES [facility] [place] [address] * (ABNORMAL) BMP w/fasting Glucose (08/07/2023 7:38 AM EDT) Pathologist [facility] Glucose Fasting 165(H) 65 - 99 mg/dL [facility] Comment: ?Fasting* Glucose Interpretive Criteria [...] of Diabetes Mellitus, Position Statement from the [place] Diabetes Association. ??Diabetes Care, Volume 33, Supplement 1, Nov 2009 BUN 17 8 - 18 mg/dL [facility] Creatinine 0.52(L) 0.70 - 1.20 mg/dL [facility] Sodium 137 135 - 145 mmol/L [facility] Potassium 4.7 3.5 - 5.0 mmol/L [facility] Comment: Please note: ??Patients with WBC >100,000 may have falsely elevated Potassium levels. ??For accurate Potassium quantification in these patients send serum separator tube (gold top) for subsequent determinations. ??Contact the Clinical Chemistry Laboratory if there are any questions. Chloride 102 98 - 107 mmol/L [facility] CO2 26 22 - 31 mmol/L [facility] Anion Gap 9 5 - 15 mmol/L [facility] Calcium 9.1 8.5 - 10.5 mg/dL [facility] Estimated GFR 115 >=60 mL/min/1. 73 m?? [facility] Comment: This patient's estimated GFR [...] In Lab Hero Taylor MD CHEMISTRY ORDERABLES Performing Organization Address City/State/[facility] Co de Phone Number [facility] [place] [address] documented in this encounter Visit Diagnoses Diagnosis Dilated cardiomyopathy Other primary cardiomyopathies Dilated cardiomyopathy Other primary cardiomyopathies documented in this encounter Active and Recently Administered Medications Care Teams Station Cook Relationship Specialty Start Date End Date Edie Ellis MD [address] [place] [address] PCP - General 10/15/10 documented as of this encounter
--- OUTSIDE RECORDS SUMMARY | 2024-06-03 00:23 | XMS_ITS | Encounter Summary ---
Author Organization [facility] Address [facility] [place] [address] Care Team Providers Care Director Child Development Center Name Role Phone Edie Ellis MD Primary Care Provider [phone] Encounter Details Date Type Department Care Team (Late st Contact Info) Description 08/03/2023 Orders Only Cardiology at [address] [place] [address] Leelee Miller [place] [facility] [place] [address] ICD, [employer], single lead; Skin wound from surgical incision Social History Tobacco Use Types Packs/Day Years [...] as of this encounter Progress Notes * Leelee Miller PA - 08/03/2023 2:18 PM EDT Please see Emilie Elmore's note for further details. Clindamycin 150mg po TID x 5 days Unable to treat with cephalexin or dicloxacillin given PCN allergy associated with anaphylaxis. Re-eval on 08/07/23 at time of EP procedure. ANNE Ramos 2:22 PM 08/03/23 documented in this encounter Plan of Treatment Upcoming Encounters Date Type Department Care Team (Late st Contact Info) Description 07/09/2024 10:00 AM EDT Hospital Encounter Non-[place] [address] Arrived documented as of this encounter Visit Diagnoses Diagnosis SQ ICD, [employer], single lead Skin wound from surgical incision documented in this encounter Care Teams Director Child Development Center Relationship Specialty Start Date End Date Edie Ellis MD [facility] [address] [place] [address] PCP - General 10/15/10 documented as of this encounter
--- OUTSIDE RECORDS SUMMARY | 2024-06-03 00:23 | XMS_ITS | Encounter Summary ---
Author Organization [facility] [place] [address] Care Team Providers Care Gasoline Engine Assembler Name Role Phone Edie Ellis MD Primary Care Provider [phone] Encounter Details Date Type Department Care Team (Late st Contact Info) Description 07/20/2023 1:00 PM EDT TH Visit (TeleHealth) [place] [phone] Social History Tobacco Use Types Packs/Day Years [...] AM EDT Hospital Encounter Non-[place]vasive [place] [phone] Arrived documented as of this encounter Visit Diagnoses Not on filedocumented in this encounter Care Teams Gasoline Engine Assembler Relationship Specialty Start Date End Date Edie Ellis MD [facility] [address] [place] [address] PCP - General 10/15/10 documented as of this encounter
--- OUTSIDE RECORDS SUMMARY | 2024-06-03 00:23 | XMS_ITS | Encounter Summary ---
Author Organization [facility] Address [facility] [place] [address] Care Team Providers Care Gun Welder Name Role Phone Edie Ellis MD Primary Care Provider [phone] Encounter Details Date Type Department Care Team (Late st Contact Info) Description 08/07/2023 8:30 AM EDT - 08/07/2023 10:00 AM EDT Surgery [place] [address] Jonathan Willson MD [facility] [place] [address] ELECTROPHYSIOLOGY PROCEDURE Social History Tobacco Use Types [...] F. The office scheduling phone number is [phone]. documented in this encounter Medications at Time [...] a day 03/12/2015 naloxone (Narcan) 4 mg/actuation [place], Non-Aerosol Once 03/10/2019 magnesium oxide (MAG-OX) 400 [...] note were not included. 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 Written consent obtained Will plant changer her dressings today JONATHAN WILLSON MD 08/07/2023 Pager [phone] Plan 1) Anticipate DFT test 2) Discharge [...] AM EDT Hospital Encounter Non[place] [address] Arrived documented as of this encounter Procedures [...] (at implant and today) I was the team primary care physician, present for the entire procedure and personally edited this note JONATHAN WILLSON MD Narrative 08/07/2023 3:16 PM EDT SQ ICD Surveillance, Monitored Anesthesia Care Indication: Assessment of defibrillation thresholds, unable to induce VF at initial implant Operators: ??Reinaldo Connelly MD; Jonathan DIXON.[facility]. Procedure: The patient was brought to the Electrophysiology Lab in the fasting state and continuous electrocardiographic monitoring was instituted. ICD evaluation and DFT testing was performed under moderate sedation with monitored anesthesia care ICD Evaluation: [employer] Emblem A219 Device Serial Number: [id number] Battery: 100% to LISA A 10 joule [...] * POCT Glucose (08/07/2023 7:46 AM EDT) [facility] POC Glucose 152 65 - 199 mg/dL [facility] Comment: Supplemental ranges: <140 mg/dL before meals <180 mg/dL all other times of the day Blood 08/07/2023 7:46 AM EDT 08/07/2023 7:46 AM EDT Jonathan Willson MD POINT OF CARE TEST O RDERABLES [facility] [place] [address] * (ABNORMAL) BMP w/fasting Glucose (08/07/2023 7:38 AM EDT) Glucose Fasting 165(H) 65 - 99 mg/dL [facility] Comment: ?Fasting* Glucose Interpretive Criteria Normal [...] of Diabetes Mellitus, Position Statement from the [place] Diabetes [employer]. ??Diabetes Care, Volume 33, Supplement 1, Nov 2009 BUN 17 8 - 18 mg/dL [facility] Creatinine 0.52(L) 0.70 - 1.20 mg/dL [facility] Sodium 137 135 - 145 mmol/L [facility] Potassium 4.7 3.5 - 5.0 mmol/L [facility] Comment: Please note: ??Patients with WBC >100,000 may have falsely elevated Potassium levels. ??For accurate Potassium quantification in these patients send serum separator tube (gold top) for subsequent determinations. ??Contact the Clinical Chemistry Laboratory if there are any questions. Chloride 102 98 - 107 mmol/L [facility] CO2 26 22 - 31 mmol/L [facility] Anion Gap 9 5 - 15 mmol/L [facility] Calcium 9.1 8.5 - 10.5 mg/dL [facility] Estimated GFR 115 >=60 mL/min/1. 73 m?? [facility] Comment: This patient's [...] Taylor MD CHEMISTRY ORDERABLES Performing Organization Address City/State/[facility] Co de Phone Number [facility] [place] [address] documented in this encounter Visit Diagnoses Diagnosis Dilated cardiomyopathy Other primary cardiomyopathies Dilated cardiomyopathy Other primary cardiomyopathies documented in this encounter Active and Recently Administered Medications Care Teams Gun Welder Relationship Specialty Start Date End Date Edie Ellis MD [address] [place] [address] PCP - General 10/15/10 documented as of this encounter
--- OUTSIDE RECORDS SUMMARY | 2024-06-03 00:23 | XMS_ITS | Encounter Summary ---
[place] [address] Care Team Providers Care Strategic Marketing Leader Name Role Phone Edie Ellis MD Primary Care Provider [phone] Encounter Details Date Type Department Care Team (Latest Contact Info) Description 07/03/2023 Travel Social History Tobacco Use Types Packs/Day [...] AM EDT Hospital Encounter Non-Invasive [place] [address] Arrived documented as of this encounter Visit Diagnoses Not on filedocumented in this encounter Care Teams Strategic Marketing Leader Relationship Specialty Start Date End Date Edie Ellis MD [address] [place] [address] PCP - General 10/15/10 documented as of this encounter
--- OUTSIDE RECORDS SUMMARY | 2024-06-03 00:23 | XMS_ITS | Encounter Summary ---
Author Organization [facility] Address [facility] [place] [address] Care Team Providers Care Superintendent Menagerie Name Role Phone Edie Ellis MD Primary Care Provider [phone] Encounter Details Date Type Department Care Team (Late st Contact Info) Description 07/06/2029 11:59 PM EDT Anesthesia Event Main [place] [address] [facility] [place] [address] Anesthesia Record Procedure Summary Procedure Name Responsible Anesthesiologist Anesthesia Start Time Anesthesia Stop Time ARTHROSCOPY SHOULDER, SUBACROMIAL DECOMPRESSION (WRVU 3) (Right: Shoulder) Events No events on file. Meds * Agents No agents on file. * Blood No blood administrations on file. [...] of this encounter OR Notes * Anesthesia Preprocedure Evaluation - Jackelyn Iqbal APRN - 07/20/2023 3:48 PM EDT Pre-Anesthesia Evaluation for: Jammie levine 48 y.o. female. Procedure(s): ARTHROSCOPY SHOULDER, SUBACROMIAL DECOMPRESSION (WRVU 3) [facility] Patient Active Problem List Diagnosis Date Noted SQ ICD, [employer], single lead 07/15/2023 HFrEF (heart failure with reduced ejection fraction) 07/14/2023 Chronic pain in right shoulder 07/03/2023 [...] ARRAY, EPIDURAL performed by CARINE CHATTERJEE at [facility] MAIN OR PRO UNLISTED PROCEDURE, MUSCULOSKELETAL [...] Physical Exam: Preprocedure Vitals Current as of 07/20/23 1548 No BP, pulse, respiration, SpO2, or temperature recorded. Height: 162.6 cm (5' 4.02) (07/03/23) Weight: 91.6 kg (202 lb) (07/03/23) BMI: 34.65 IBW: 54.7 kg (120 lb 10.7 oz) Anesthesia Physical Exam Last Filed Perioperative Cognitive Screening None Anesthesia Plan Anesthesia Screening Note: Date and Time of Entry: 07/20/2023 3:48 PM Entered By: Jackelyn Iqbal APRN Reason for Evaluation: OSC Anesthesia Clearance and Surgeon Request Other Reason: Cardiac Issue, Muscular Distorophy, Opiod use Findings, Assessment and Plan: 48 y.o. female BMI 36 with partial-thickness rotator cuff tear and subacromial impingement presenting for pre-anesthesia video consultation prior to arthroscopic shoulder surgery with Dr. Kaminski, not yet scheduled. 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 with hx of depressed EF and syncope (last occurred in October), [employer] ICD placed 07/14/23 for primary prevention: entresto, metoprolol #CAD: non-obstructive on coronary cath from 09/06/21 #Afib: not at present, no AC #HTN: well-controlled #asthma: worse in spring - rarely uses albuterol #DM2: on metformin, trulicity, farxiga (states recent A1C 7.0) #Lumbar radiculopathy s/p lami: has chronic back pain, takes dilaudid 4mg bid, lyrica #Depression/anxiety: clonazepam prn, duloxetine, lamictal #hypothyroidism: levothyroxine #GERD: well controlled on omeprazole Reports a history of muscle stiffness. Previously, there was question of possible TTN gene mutationrelated muscular dystrophy. Patient underwent a muscle biopsy which was negative.Reports a history of chest tightness which has been stable for many years. Occurs independent of activity. Can last from an hour to an entire day. Has remained unchanged since cardiac catheterization in 2020. Denies SOB, palpitations, orthopnea, dizziness or syncope since October 2022. Reports being able to climb two flights of stairs without difficulty. Followed by Kina RODRÍGUEZ in cardiology, last seen 03/12/23. Per this note, recommended stress echo in anticipation of shoulder surgery. Metoprolol increased to 100mg daily d/t elevated HR and palpitations. Echo was performed (results below) but stress test was canceled due to tachycardia (HR 105bpm). Social History: Tobacco Use: Quit August 2022, smoked 1-1.5ppd for 10 years Alcohol: Rarely SURGICAL HISTORY: ICD placement, left shoulder surgery 3 years ago, neurostimulator placement (has since been removed), hysterectomy ANESTHETIC HISTORY: History of motion sickness, denies a history of PONV 07/14/23 Mac3, gr 1 view, easy mask Echo 03/23/23 Interpretation Summary LV mild global hypokinesis. The left ventricular ejection fraction is 42% by Mobley's biplane. Right ventricular function is probably normal. No significant valvular disease noted on this study. Compared with the prior TTE of 01/02/2022, LV systolic function has declined (prior EF 52%). Of note, the patient was tachycardiac at baseline (HR 105 bpm). Stress testing was canceled. 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 Patient reports a history of chest tightness which has been stable for many years. Cardiac catheterization performed 2020 showed non-obstructive CAD, mild pulmonary hypertension. A stress echo performed 03/23/23 showed an EF of 42%, LV mild global hypokinesis, no significant valvular disease, stress test cancelled. Patient reports >4METs without concerning cardiopulmonary symptoms with activity. Will reach out to cardiology to ensure no additional testing is recommended prior to surgery. Given patient's cardiac history, would recommend surgery be scheduled for Main OR. Patient would also prefer to have surgery at this location. Dis cussed the risks and benefits of anesthesia. Made aware final anesthetic plan to be determined by primary team on day of surgery. Patient advised to stop farxiga three days prior to surgery. All question's answered to the patient's satisfaction. Jackelyn Iqbal APRN 07/20/23 (Update 07/22/23) Reached out to cardiology ANNE Awad, no additional testing recommended before surgery. EP advised waiting 6 weeks from ICD placement, surgery is now scheduled for 08/27/23 which is over 6 weeks from ICD placement. documented in this encounter Plan of Treatment Upcoming Encounters Date Type Department Care Team (Late st Contact Info) Description 07/09/2024 10:00 AM EDT Hospital Encounter Non-Invasive [place]iology [place] [address] Arrived documented as of this encounter Visit Diagnoses Not on filedocumented in this encounter Care Teams Superintendent Menagerie Relationship Specialty Start Date End Date Edie Ellis MD [address] [place] [address] PCP - General 10/15/10 documented as of this encounter
--- OUTSIDE RECORDS SUMMARY | 2024-06-03 00:24 | XMS_ITS | Encounter Summary ---
Author Organization Formerly [facility] Address [facility] [place] [address] Care Team Providers Care Traffic Operator Name Role Phone Edie Ellis MD Primary Care Provider [phone] Encounter Details Date Type Department Care Team (Late st Contact Info) Description 07/02/2023 2:00 PM EDT Office Visit Cardiology at [address] [place] [address] Leelee Miller PA [facility] [place] [address] Cardiomyopathy, unspecified type; Syncope, unspecified syncope type; Family history of sudden cardiac Social History Tobacco Use Types Packs/Day Years [...] Sign Reading Time Taken Comments Blood Pressure 126/91 07/02/2023 2:11 PM EDT Pulse 108 07/02/2023 2:11 PM EDT Temperature - - Respiratory Rate - - Oxygen Saturation 98% 07/02/2023 2:11 PM EDT Inhaled Oxygen Concentration - - Weight 92 kg (202 lb 12.8 oz) 07/02/2023 2:11 PM EDT Height 162.6 cm (5' 4) 07/02/2023 2:11 PM EDT Body Mass Index 34.81 07/02/2023 2:11 PM EDT documented in this encounter Progress Notes * Leelee Miller PA - 07/02/2023 2:00 PM EDT Images from the original note were not included. Cardiac Electrophysiology Clinic Visit Subjective: Patient ID: Jammie Gottlieb is a 48 y.o. female. Indication: Consideration of primary prevention ICD HPI: 48 y.o. 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 Ms. Gottlieb has been followed by the Advanced Heart Failure team at [facility] for her familial dilated cardiomyopathy with presence of TTN gene. Index LVEF was 40% in 2012. Improvement was noted on a 2019 TTE to 50-55%. A cMRI in April 2021 demonstrated an LVEF of 41% without evidence of ischemia, infiltrative, or infectious cardiomyopathy. Her most recent LVEF was 42% per a March 2023 TTE. Completed genetic testing and counseling. She had an episode of syncope in August 2020 and has several episodes similar to this since that time. Her most recent episode of complete loss of consciousness was sometime around [place]. She believes that since starting the Entresto she has felt much better without presyncope or syncope. She has pursued an optimized BMI with exercise and diet. She has lost ~50 lbs. A few months ago she switched from Paxil to Cymbalta and Wellbutrin which has aided in her weight loss journey and her smoking cravings (quit in August 2022). She knows that an ICD has been discussed in the past and over the past several months she has considered all that she has to live for, particularly for her four children. Reported history of atrial fibrillation. She explains that in 2007 she was hospitalized and afib was noted on monitoring briefly. Then, in 2009 during her C section, she was noted to afib again. She reports that she has had palpitations since she was a kid. Ambulatory monitoring in January 2023 did not demonstrate persistent atrial arrhythmias. She continues to have palpitations infrequently. She was born in [place], [place]. Now lives in [place], [place]. She has 4 children, her youngest (13) lives at home with her and her ex. She does not work due to [employer] limitations. She has 2 dogs, Cody and Shell. Patient Active Problem List Diagnosis T2DM Essential hypertension Syncope Post laminectomy syndrome Cardiomyopathy Atrial fibrillation Lumbar radiculopathy Medications: Current Outpatient Medications Medication Sig Note Dispense Refill pregabalin (Lyrica) 100 mg capsule Take 100 mg by mouth 2 times daily. fluconazole (Diflucan) 150 mg tablet Take 150 mg by mouth daily. clonazePAM (KlonoPIN) 1 mg tablet Take 1 mg by mouth 2 times daily as needed. sacubitriL-valsartan (Entresto) 97-103 mg tablet Take 97-103 tablets by mouth 2 times daily. icosapent ethyL (Vascepa) 1 gram capsule Take 2 g by mouth 2 times daily. 120 capsule 11 omega-3 acid ethyl esters (Lovaza) 1 gram capsule Take 2 capsules by mouth 2 times daily. 120 capsule 5 empagliflozin (Jardiance) 10 mg tablet Take 10 mg by mouth daily. metoprolol succinate XL (Toprol-XL) 100 mg ER 24 hr tablet Take 1 tablet by mouth daily. 90 tablet 3 duloxetine HCl (CYMBALTA ORAL) Take 40 mg by mouth daily. bupropion HCl (WELLBUTRIN ORAL) Take 150 mg by mouth 2 times daily. Trulicity 3 mg/0.5 mL Pen Injector once a week. prochlorperazine (Compazine) 10 mg Tablet Take 10 mg by mouth as needed. valACYclovir (Valtrex) 500 mg Tablet Take 500 mg by mouth nightly. 07/02/2023: PRN. naproxen (NAPROSYN) 500 mg Tablet 2 times daily. hydrocortisone 2.5 % Cream as needed. cholecalciferol, Vitamin D3, 50 mcg (2,000 unit) Capsule TAKE 1 CAPSULE BY MOUTH DAILY cyanocobalamin, Vitamin B-12, (Vitamin B-12) 1,000 mcg Tablet TAKE 1 TABLET BY MOUTH EVERY DAY estradioL (Estrace) 1 mg Tablet 2 times daily. 01/02/2022: 1 mg Morning & 1.5 mg Nightly Aerochamber Max with Flow-VU Spacer USE DIRECTED lamoTRIgine (LaMICtal) 100 mg Tablet TAKE 1 TABLET BY MOUTH EVERY DAY levothyroxine (Synthroid) 25 mcg Tablet Bedtime loratadine (Claritin) 10 mg Tablet TAKE 1 TABLET BY MOUTH EVERY DAY NEEDED metFORMIN XR (Glucophage XR) 500 mg Tablet Sustained Release 24 hr Twice a day naloxone (Narcan) 4 mg/actuation [place], Non-Aerosol Once magnesium oxide (MAG-OX) 400 mg tablet Take 400 mg by mouth 2 times daily. Riboflavin 25 mg Tablet Take 200 mg by mouth 2 times daily. VITAMIN B COMPLEX & VIT C NO.3 (VITAMIN B COMP & C NO.3 ORAL) Take 1 mg by mouth. aspirin 81 mg EC tablet Take 81 mg by mouth daily. rosuvastatin (CRESTOR) 10 mg tablet Take 10 mg by mouth every evening. HYDROmorphone (DILAUDID) 2 mg tablet Take 1 tablet by mouth every 4 hours as needed for Pain. (Patient taking differently: Take 2 mg by mouth 2 times daily.) 20 tablet 0 naratriptan (AMERGE) 2.5 mg tablet Take 2.5 [...] capsule Take 20 mg by mouth daily. sacubitriL-valsartan (Entresto) 49-51 mg tablet Take 1 tablet by mouth 2 times daily. (Patient not taking: Reported on 07/02/2023) 180 tablet 3 pregabalin (Lyrica) 75 mg Capsule Three times a day valACYclovir (VALTREX) 1 g tablet Take 1,000 mg by mouth as needed. Objective: Vitals: Vitals: 07/02/23 1411 BP: (!) 126/91 BP Location (NBP): Left arm Patient Position: Sitting BP Cuff Sizes: Adult (25-34 cm) Pulse: (!) 108 SpO2: 98% Weight: 92 kg (202 lb 12.8 oz) Height: 162.6 cm (5' 4) Physical Exam: General- No acute distress, sitting comfortably in exam room chair HEENT- Head atraumatic, normocephalic Skin- Warm, dry Neck- No JVD noted Cardiovascular- S1/S2 regular rate and regular rhythm. Lungs- Clear to auscultation bilaterally Extremities- Pulses equal bilaterally. No edema noted Neuro- A&Ox3 ECG in office today shows sinus rhythm at 98 bpm, OK 134ms, QRS 80ms, QT 376ms, QTc 480ms. Ambulatory Monitoring January 2023 Echo 03/23/2023 Interpretation Summary LV mild global hypokinesis. The left ventricular ejection fraction is 42% by Mobley's biplane. Right ventricular function is probably normal. No significant valvular disease noted on this study. Compared with the prior TTE of 01/02/2022, LV systolic function has declined (prior EF 52%). Of note, the patient was tachycardiac at baseline (HR 105 bpm). Stress testing was canceled. Cardiac Cath 09/06/2021 Conclusions: * Nonobstructive coronary artery disease * Mild pulmonary hypertension Cardiac MRI 05/08/2021 IMPRESSION Normal size of the cardiac chambers. Generalized left ventricular hypokinesis resulting in a decreased ejection fraction of 41%. No abnormal postcontrast enhancement that would indicate a postischemic change or infectious/infiltrative cardiomyopathy. LVEF, RV function, Valve disease LVEF 41% Etiology, Ischemic Evaluation Familial cardiomyopathy, TTN + NYHA functional class NYHA class II Beta Peggy and/or Ivabradine Metoprolol succinate 100mg daily REEMA or ARB or Entresto Entresto Aldosterone antagonist Discontinued in setting of MACY Diuretic Discontinued SGLT2i Jardiance ICD or BOLT LOADER-D if indicated SCD in PGF, personal syncope, TTN +, mildly reduced LVEF on tolerated GDMT BSI S-ICD Screening Assessment and Plan: 48 y.o. female with past medical history of non-ischemic dilated cardiomyopathy (LVEF 41% per March TTE), TTN positive, nonobstructive CAD, syncope (August 2020), atrial fibrillation (remote 2009 without recurrence on monitoring, not anticoagulated), HTN, and T2DM, who presents to discuss primary prevention ICD. Given known TTN gene, persistent mildly reduced LVEF despite GDMT, personal history of syncope in 2019, and SCD in her PGF, she has risk factors to be considered for a primary prevention ICD. Her sinus rates are normal to tachycardic (CTA chest done in August 2022 to r/o PE), and she has not demonstrated high grade AV block. Her QRS is narrow. For these reasons, she does not have pacing indications at this time. Therefore, a subcutaneous ICD was considered and she has passed the S-ICD screening (please see details above). The subcutaneous implantable cardioverter-defibrillator procedure and risks were discussed in detail. I informed her that she may not utilize this device, though she has about a 25% chance of experiencing a shock (appropriate for VT/VF) in the next couple years, and that we can generally keep these shocks to a minimum. We discussed the fact that we avoid complications 95% of the time, but these treatable complications include infection requiring device explantation, internal bleeding requiring blo od transfusion very rarely, lead malfunction requiring early surgical revision, and the potential for a device recall. In addition, the post-procedure acute limitations including activity restriction(arm lifting and movement, carrying) and driving restrictions were discussed with the patient. Benefits include the prolongation of survival due to appropriate treatment of malignant sustained ventricular arrhythmia if it occurs in future. Plan: 1. No medication changes 2. Schedule S-ICD implant - Sed: GA - Abx: Vanco - Temp pacing: Not indicated - AC: N/A I appreciate the opportunity to be involved with Ms. Gottlieb's care. Please do not hesitate to contact EP with any further questions (pager [phone]). ANNE Ramos 4:26 PM 07/02/23 * Rpual Mendez - 07/02/2023 2:00 PM EDTSumolimpia: JOSEPHINE Clinical Note Cardiac Electrophysiology Clinic Visit Subjective: Patient ID: Jammie Gottlieb is a 48 y.o. female. CC: Follow up of nonischemic cardiomyopathy and discuss possible ICD placement HPI: 48 y.o. female with past medical history of nonischemic cardiomyopathy with known TTN gene, HTN, DMII, syncope, chronic low back pain s/p lumbar spine surgery, migraines, depression, and fatty liver disease who presents discuss possible ICD implantation due to increased risk of ventricular arrhythmias from TTN gene. Her last syncopal episode was in August of 2020 and has had several episodes since then. Last one was in [place] time. Ambulatory monitoring holter monitor in January 2023 didnot show any significant findings. She also has a reported history of atrial fibrillation. In 2007 was hospitalized and a-fib was noted on monitor briefly. In 2009 during her they noted another episode. She reports palpitations as a child Previous echo in 2012 revealed mildly dialated LV and EF of 40%. TTE in 2019 showed in increase in LVEF 50-55%. 41% by cMRI in April of 2021. TTN gene was then found as genetic testing was done (2020). Echo 01/02/22 revealed an EF of 52% and echo on 03/23/23 revealed an EF of 42% which has decreased since 2021. Family history: Paternal Grandfather- unexpectedly at 58 year Paternal great grandfather 63 also had CMP Aunt has a pacemaker Daughter confirmed positive for TTN gene Today she is doing well. Acknowledges that she would like to have a defibrillator at this time and has discussed it with structural heart team in the past. She admits Sometimes get scared I am not going to wake up and I want to be here with my daughter. Thought getting something to keep my heartgoing would be a good idea. She recently lost 50 lbs in the last year and has quit smoking after she got out of the hospital for pneumonia and was intubated in August. Patient Active Problem List Diagnosis T2DM Essential hypertension Syncope Post laminectomy syndrome Cardiomyopathy Atrial fibrillation Lumbar radiculopathy ROS: Constitutional: - fatigue, - fever, - chills Respiratory: - shortness of breath, - cough, - apnea, - wheezing Cardiovascular: - chest pain, - palpitations, - unusual rates Gastrointestinal: - nausea, - vomiting, - abdominal pain, - diarrhea Neurological: - lightheadedness, - dizziness, - syncope, - weakness Psychiatric: - anxious Medications: Current Outpatient Medications Medication Sig Note Dispense Refill pregabalin (Lyrica) 100 mg capsule Take 100 mg by mouth 2 times daily. fluconazole (Diflucan) 150 mg tablet Take 150 mg by mouth daily. clonazePAM (KlonoPIN) 1 mg tablet Take 1 mg by mouth 2 times daily as needed. sacubitriL-valsartan (Entresto) 97-103 mg tablet Take 97-103 tablets by mouth 2 times daily. icosapent ethyL (Vascepa) 1 gram capsule Take 2 g by mouth 2 times daily. 120 capsule 11 omega-3 acid ethyl esters (Lovaza) 1 gram capsule Take 2 capsules by mouth 2 times daily. 120 capsule 5 empagliflozin (Jardiance) 10 mg tablet Take 10 mg by mouth daily. metoprolol succinate XL (Toprol-XL) 100 mg ER 24 hr tablet Take 1 tablet by mouth daily. 90 tablet 3 duloxetine HCl (CYMBALTA ORAL) Take 40 mg by mouth daily. bupropion HCl (WELLBUTRIN ORAL) Take 150 mg by mouth 2 times daily. Trulicity 3 mg/0.5 mL Pen Injector once a week. prochlorperazine (Compazine) 10 mg Tablet Take 10 mg by mouth as needed. valACYclovir (Valtrex) 500 mg Tablet Take 500 mg by mouth nightly. 07/02/2023: PRN. naproxen (NAPROSYN) 500 mg Tablet 2 times daily. hydrocortisone 2.5 % Cream as needed. cholecalciferol, Vitamin D3, 50 mcg (2,000 unit) Capsule TAKE 1 CAPSULE BY MOUTH DAILY cyanocobalamin, Vitamin B-12, (Vitamin B-12) 1,000 mcg Tablet TAKE 1 TABLET BY MOUTH EVERY DAY estradioL (Estrace) 1 mg Tablet 2 times daily. 01/02/2022: 1 mg Morning & 1.5 mg Nightly Aerochamber Max with Flow-VU Spacer USE DIRECTED lamoTRIgine (LaMICtal) 100 mg Tablet TAKE 1 TABLET BY MOUTH EVERY DAY levothyroxine (Synthroid) 25 mcg Tablet Bedtime loratadine (Claritin) 10 mg Tablet TAKE 1 TABLET BY MOUTH EVERY DAY NEEDED metFORMIN XR (Glucophage XR) 500 mg Tablet Sustained Release 24 hr Twice a day naloxone (Narcan) 4 mg/actuation [place], Non-Aerosol Once magnesium oxide (MAG-OX) 400 mg tablet Take 400 mg by mouth 2 times daily. Riboflavin 25 mg Tablet Take 200 mg by mouth 2 times daily. VITAMIN B COMPLEX & VIT C NO.3 (VITAMIN B COMP & C NO.3 ORAL) Take 1 mg by mouth. aspirin 81 mg EC tablet Take 81 mg by mouth daily. rosuvastatin (CRESTOR) 10 mg tablet Take 10 mg by mouth every evening. HYDROmorphone (DILAUDID) 2 mg tablet Take 1 tablet by mouth every 4 hours as needed for Pain. (Patient taking differently: Take 2 mg by mouth 2 times daily.) 20 tablet 0 naratriptan (AMERGE) 2.5 mg tablet Take 2.5 [...] capsule Take 20 mg by mouth daily. sacubitriL-valsartan (Entresto) 49-51 mg tablet Take 1 tablet by mouth 2 times daily. (Patient not taking: Reported on 07/02/2023) 180 tablet 3 pregabalin (Lyrica) 75 mg Capsule Three times a day valACYclovir (VALTREX) 1 g tablet Take 1,000 mg by mouth as needed. Objective: Vitals: Vitals: 07/02/23 1411 BP: (!) 126/91 BP Location (NBP): Left arm Patient Position: Sitting BP Cuff Sizes: Adult (25-34 cm) Pulse: (!) 108 SpO2: 98% Weight: 92 kg (202 lb 12.8 oz) Height: 162.6 cm (5' 4) Physical Exam: General- No acute distress, sitting comfortably in exam room chair HEENT- Head atraumatic, normocephalic Neck- No JVD noted Cardiovascular- S1/S2 regular rate and rhythm. No murmur, rub or gallop Lungs- Clear to auscultation bilaterally Extremities- Pulses equal bilaterally. No edema noted Neuro- A&Ox3 ECG in office today (07/02/23) shows normal sinus rhythm with low voltage QRS. QT/ QTc 376/480 ms Echo 03/23/2023 Interpretation Summary LV mild global hypokinesis. The left ventricular ejection fraction is 42% by Mobley's biplane. Right ventricular function is probably normal. No significant valvular disease noted on this study. Compared with the prior TTE of 01/02/2022, LV systolic function has declined (prior EF 52%). Of note, the patient was tachycardiac at baseline (HR 105 bpm). Stress testing was canceled. Assessment and Plan: 48 y.o. with medical history significant for nonischemic cardiomyopathy with known TTN gene, HTN, DMII, syncope, chronic low back pain s/p lumbar spine surgery, migraines, depression, and fatty liverdisease who presents discuss possible ICD implantation due to increased risk of ventricular arrhythmias from TTN gene. Last LVEF on 03/23 revealed 42% which has declined since 2021. Patient stated she was already aware about needing a pacemaker. Indications for implantation including avoiding ventricular arrhythmias were discussed in detail with the patient and at this point the benefits outweigh the risks. SICD would be indicated at this time due to her history of her age, no pacing indications, and less infection risk. She is on board as her daughter is her main motivator and wants to be around for her. Plan: 1. Schedule SICD implant 2. No medication changes at this time Advised patient to reach out if she has any questions or concerns. Rupal RODRÍGUEZ-S documented in this encounter Plan of Treatment Upcoming Encounters Date Type Department Care Team (Late st Contact Info) Description 07/09/2024 10:00 AM EDT Hospital Encounter [place] [phone] Arrived documented as of this encounter Procedures Procedure Name Priority Date/Time Associated Diagnosis Comments EKG 12-LEAD Routine 07/02/2023 2:20 PM EDT documented in this encounter Results * EKG 12 Lead (07/14/2023 6:51 AM EDT) Ventricular rate 79 BPM MUSE SYSTEM Atrial Rate 79 BPM MUSE SYSTEM P-R Interval 180 ms MUSE SYSTEM QRS Duration 78 ms MUSE SYSTEM Q-T Interval 408 ms MUSE SYSTEM QTC Calculated (Bezet) 467 ms MUSE SYSTEM Calculated P [place] 2 degrees MUSE SYSTEM Calculated R [place] -14 degrees MUSE SYSTEM Calculated T [place] 16 degrees MUSE SYSTEM INTERPRETATION Normal sinus rhythm Septal infarct , age undetermined Poor R wave progression Abnormal ECG When compared with ECG of 02-JUL-2023 14:20, Septal infarct is now Present I personally reviewed the tracing and edited the fellows interpretation Confirmed by fellow Oscar Kidd ([id number]) on 07/14/2023 9:20:46 AM Confirmed by MD Sophie, Loyda ([id number]) on 07/14/2023 5:28:26 PM MUSE SYSTEM 07/14/2023 6:51 AM EDT 07/14/2023 5:28 PM EDT Tonia Crystal MD ECG ORDERABLES Performing Organization Address [facility] Co de Phone Number MUSE SYSTEM * EKG 12 Lead (07/02/2023 2:20 PM EDT) Ventricular rate 98 BPM MUSE SYSTEM Atrial Rate 98 BPM MUSE SYSTEM P-R Interval 134 ms MUSE SYSTEM QRS Duration 80 ms MUSE SYSTEM Q-T Interval 376 ms MUSE SYSTEM QTC Calculated (Bezet) 480 ms MUSE SYSTEM Calculated P [place] 51 degrees MUSE SYSTEM Calculated R [place] -3 degrees MUSE SYSTEM Calculated T [place] 37 degrees MUSE SYSTEM INTERPRETATION Normal sinus rhythm Low voltage QRS Prolonged QT Abnormal ECG When compared with ECG of 12-MAR-2023 09:46, No significant change was found Confirmed by MD Helder, Nikhil ([id number]) on 07/02/2023 4:46:49 PM MUSE SYSTEM 07/02/2023 2:20 PM EDT 07/02/2023 4:46 PM EDT Unknown ECG ORDERABLES Performing Organization Address [facility] Co de Phone Number MUSE SYSTEM documented in this encounter Visit Diagnoses Diagnosis Cardiomyopathy, unspecified type Syncope, unspecified syncope type Family history of sudden cardiac Family history of sudden cardiac (SCD) documented in this encounter Care Teams Traffic Operator Relationship Specialty Start Date End Date Edie Ellis MD [address] [place] [address] PCP - General 10/15/10 documented as of this encounter
--- OUTSIDE RECORDS SUMMARY | 2024-06-03 00:24 | XMS_ITS | Encounter Summary ---
Author Organization [facility] [place] [address] Care Team Providers Care Classifier Tender Name Role Phone Edie Ellis MD Primary Care Provider [phone] Reason for Visit * Reason Onset Date Comments Follow-up 06/26/2023 Up titration of Entresto Encounter Details Date Type Department Care Team (Late st Contact Info) Description 06/26/2023 Telephone Cardiology at [address] [phone] Angélica Polo, RN Follow-up (Up titration of Entresto) Social History Tobacco Use Types Packs/Day Years [...] Telephone Encounter - Angélica Polo RN - 06/26/2023 12:50 PM EDT Pt returning this junior copywriter's call. States she has enough of the 49-51 mg tabs to do 2 tabs bid for a week to see how she tolerates it. Pt reminded to monitor her BP, keep hydrated and to call next week with an update, sooner with any questions/concerns. If tolerating the higher dose will send a new prescription for the 97-103 mg bid at that time, to her pharmacy. * Telephone Encounter - Angélica Polo RN - 06/26/2023 11:53 AM EDT Call placed to the home/mobile number listed. No answer. Message left asking that the pt call back to discuss the dose increase. Awaiting a call back. [facility] message sent as well. * Telephone Encounter - Angélica Polo RN - 06/26/2023 11:51 AM EDT ----- Message from Andreina David APRN sent at 06/26/2023 10:48 AM EDT ----- Regarding: RE: Blood pressure Contact: Would increase to 97/103 BID - no labs - watch BPs sd ----- Message ----- From: Angélica Polo RN Sent: 06/25/2023 6:07 PM EDT To: Andreina David APRN Subject: FW: Blood pressure She is on Entresto 49-51 bid. Do we leave her here or go up more? Angélica Peace ----- Message ----- From: Angélica Polo RN Sent: 06/24/2023 1:06 PM EDT To: Angélica Polo RN Subject: FW: Blood pressure ----- Message ----- From: Jammie Gottlieb Sent: 06/23/2023 11:47 AM EDT To: [facility] Nurse Subject: Blood pressure I'm sending in my blood pressure after my bump up on entresto that you asked for 121 91 81 113 76 90 111 79 86 107 83 86 109 79 90 108 86 97 115 76 91 113 80 102 113 76 117 102 77 88 103 73 93 102 71 102 107 73 85 107 75 85 109 76 89 No adverse symptoms Thank you Jammie Gottlieb 1974 documented in this encounter Plan of Treatment Upcoming Encounters Date Type Department Care Team (Late st Contact Info) Description 07/09/2024 10:00 AM EDT Hospital Encounter Non-Invasive [place] [phone] Arrived documented as of this encounter Visit Diagnoses Not on filedocumented in this encounter Care Teams Classifier Tender Relationship Specialty Start Date End Date Edie Ellis MD [facility] [address] [facility] [address] [place] [address] PCP - General 10/15/10 documented as of this encounter
--- OUTSIDE RECORDS SUMMARY | 2024-06-03 00:24 | XMS_ITS | Encounter Summary ---
[place] [address] Care Team Providers Care Cosmetics Counter Manager Name Role Phone Edie Ellis MD Primary Care Provider [phone] Encounter Details Date Type Department Care Team (Latest Contact Info) Description 03/12/2023 Travel Social History Tobacco Use Types Packs/Day [...] AM EDT Hospital Encounter Non[place] [phone] Arrived documented as of this encounter Visit Diagnoses Not on filedocumented in this encounter Care Teams Cosmetics Counter Manager Relationship Specialty Start Date End Date Edie Ellis MD [address] [place] [address] PCP - General 10/15/10 documented as of this encounter
--- OUTSIDE RECORDS SUMMARY | 2024-06-03 00:24 | XMS_ITS | Encounter Summary ---
Author Organization [facility] [place] [address] Care Team Providers Care Operations Assistant Name Role Phone Edie Ellis MD Primary Care Provider [phone] Reason for Visit * Reason Onset Date Comments Questions 03/26/2023 Cardiac clearanc e for orthopedic surgery Encounter Details Date Type Department Care Team (Late Contact Info) Description 03/26/2023 Telephone Cardiology at [address] [phone] Angélica Polo, RN Questions (Cardiac clearance for orthopedic surgery) Social History Tobacco Use Types Packs/Day Years [...] Telephone Encounter - Angélica Polo RN - 03/26/2023 2:01 PM EDT Call received from Angélica at [address] [place] [address] Orthopedics in [facility] (phone [phone]) stating that the pt has had the Stress echo and is wanting ANNE Awad to review the results to see if they cango forward with scheduling her for Rt shoulder arthroscopic rotator cuff repair? Message forwarded to ANNE Awad to review and respond. documented in this encounter Plan of Treatment Upcoming Encounters Date Type Department Care Team (Late st Contact Info) Description 07/09/2024 10:00 AM EDT Hospital Encounter Non-Invasive [place] [phone] Arrived documented as of this encounter Visit Diagnoses Not on filedocumented in this encounter Care Teams Operations Assistant Relationship Specialty Start Date End Date Edie Ellis MD [facility] [address] [place] [address] PCP - General 10/15/10 documented as of this encounter
--- OUTSIDE RECORDS SUMMARY | 2024-06-03 00:24 | XMS_ITS | Encounter Summary ---
[facility] [place] [address] Care Team Providers Care Ballet Master/Mistress Name Role Phone Edie Ellis MD Primary Care Provider [phone] Encounter Details Date Type Department Care Team (Late st Contact Info) Description 04/08/2022 Ancillary Procedure Radiology at [facility] [address] [place] [address] Parker Mederos MD [address] [place] [address] Social History Tobacco Use Types Packs/Day Years Used Date Smoking Tobacco: Some Days Cigarettes Smokeless Tobacco: Never Comments:no more than 5 [...] AM EDT Hospital Encounter Non-[place] [address] Arrived documented as of this encounter Procedures Procedure Name Priority Date/Time Associated Diagnosis Comments FILM LIBRARY STORAGE ONLY MR SPINE Routine 04/08/2022 12:00 AM EDT documented in this encounter Results * Film Library- Storage Only MR Spine (04/08/2022 12:00 AM EDT) Narrative [facility] - 04/11/2022 5:14 PM EDT This exam is auto-finalizing. It's purpose is for storage only. Parker Mederos MD IMG FILM LIBRARY ORD ERABLES [place], [place] documented in this encounter Visit Diagnoses Not on filedocumented in this encounter Care Teams Ballet Master/Mistress Relationship Specialty Start Date End Date Edie Ellis MD [address] [place] [address] PCP - General 10/15/10 documented as of this encounter
--- OUTSIDE RECORDS SUMMARY | 2024-06-03 00:24 | XMS_ITS | Encounter Summary ---
Author Organization [facility] [place] [address] Care Team Providers Care Orthotic Fitter Name Role Phone Edie Ellis MD Primary Care Provider [phone] Encounter Details Date Type Department Care Team (Late st Contact Info) Description 01/23/2023 12:05 AM EST Ancillary Procedure [place] [phone] Edie Ellis MD [facility] [address] [place], [place] [id number] Social History Tobacco Use Types Packs/Day Years [...] AM EDT Hospital Encounter Non-[place] [phone] Arrived documented as of this encounter Procedures Procedure Name Priority Date/Time Associated Diagnosis Comments FILM LIBRARY STORAGE ONLY MR SHOULDER Routine 01/23/2023 12:05 AM EST documented in this encounter Results * Film Library- Storage Only MR Shoulder (01/23/2023 12:05 AM EST) Narrative [facility] - 01/25/2023 8:57 PM EST This exam is auto-finalizing. It's purpose is for storage only. Edie Ellis MD IMG FILM LIBRARY ORD ERABLES Performing Organization Address City/State/[facility] Co de Phone Number [place], [place] documented in this encounter Visit Diagnoses Not on filedocumented in this encounter Care Teams Orthotic Fitter Relationship Specialty Start Date End Date Edie Ellis MD [address] [place] [address] [address] [place] [address] PCP - General 10/15/10 documented as of this encounter
--- OUTSIDE RECORDS SUMMARY | 2024-06-03 00:24 | XMS_ITS | Encounter Summary ---
[place] [address] Care Team Providers Care Lacquer Dipping Machine Operator Name Role Phone Edie Ellis MD Primary Care Provider Reason for Visit * Reason Comments Prior Authorization Entresto 24-26mg tab let Encounter Details Date Type Department Care Team (Late st Contact Info) Description 04/13/2023 Specialty [place] [address] Alex Bhagat, ASSOCIATE PROFESSOR COMPUTER SCIENCE Social History Tobacco Use Types Packs/Day Years [...] as of this encounter Progress Notes * Alex Bhagat - 04/13/2023 1:16 PM EDT [facility], Benefits Investigation Patient: Jammie Gottlieb Patient : [id number] Patient Address: [address] [facility] [address] Phone: [phone] (home) Medication Name: ENTRESTO 24 MG-26 MG TABLET Medication ID: [id number] Patient Location: [facility] Patient Location Comment: Medication Strength Frequency Requested: sacubitriL-valsartan (Entresto) 24-26 mg tablet, 1 tablet twice Qty/Day Supply: / New Start: New to Therapy Diagnosis & ICD-10 Code: HFrEF (heart failure with reduced ejection fraction) I50.20 Subscriber Insurance: [employer]) Subscriber Insurance Comment: Phone: Fax: Physician: JOANA CHOI Physician Comment : PA Status: PA Not Needed Insurance mandated Pharmacy: Unknown Fillable at [facility]: Yes Insurance requirements/notes: None Copay: $0.00 Copay assistance: Copay assistance comment: Pharmacy staff will be reaching out to the patient to inform them of their [facility]. If applicable, a pharmacist will speak with the patient to offer our specialty pharmacy services and to arrange delivery of their medication. Alex Bhagat 04/13/23 1:38 PM documented in this encounter Plan of Treatment Upcoming Encounters Date Type Department Care Team (Late st Contact Info) Description 07/09/2024 10:00 AM EDT Hospital Encounter Non-[place] [phone] Arrived documented as of this encounter Visit Diagnoses Not on filedocumented in this encounter Care Teams Lacquer Dipping Machine Operator Relationship Specialty Start Date End Date Edie Ellis MD [address] [place] [address] PCP - General 10/15/10 documented as of this encounter
--- OUTSIDE RECORDS SUMMARY | 2024-06-03 00:24 | XMS_ITS | Encounter Summary ---
Author Organization [facility] Address [facility] [place] [address] Care Team Providers Care Wood Mechanist Name Role Phone Edie Ellis MD Primary Care Provider Encounter Details Date Type Department Care Team (Latest Contact Info) Description 07/07/2022 12:18 PM EDT - 07/07/2022 1:51 PM EDT Hospital Encounter [place] [address] Denisse Pelaez MD [facility] [place] [address] Discharge Disposition: Home Social History Tobacco Use [...] Sign Reading Time Taken Comments Blood Pressure 122/85 07/07/2022 1:39 PM EDT Pulse 85 07/07/2022 1:39 PM EDT Temperature 37 ??C (98.6 ??F) 07/07/2022 1:00 PM EDT Respiratory Rate - - Oxygen Saturation 93% 07/07/2022 1:39 PM EDT Inhaled Oxygen Concentration - - Weight - - Height - - Body Mass Index - - documented in this encounter Discharge Instructions * Patient Instructions* Denisse Pelaez MD - 07/07/2022 7:29 AM EDT Minor Surgery Home Care Instructions Wound Care: X Keep incision and/or bandage clean and dry for 3 days Removed dressing prior to shower and leave off X You may shower in 36 hours. Wash with warm water and soap. Pat the incision dry X No swimming, tub baths, or hot tubs for 10-12 days X Steri-strips will fall off on their own Apply Bacitracin as directed by your doctor ___ X Use an ice pack as needed on the first day; keep it on for 20 minutes every 1 or 2 hours X No strenuous activity for 5 days Activity as tolerated ___ X Make follow-up appointment with PCP for suture removal in 10-12 days Your doctor will call you with pathology results if specimen was taken Signs and Symptoms of Infection: Wound infection can happen at any time, but happens more often about 4-7 days after surgery. Signs and symptoms may include one or more of the following: Fever. Temperature greater than 100.5??F Body chills or flu-like symptoms Swelling, redness, or warmth in or around the incision Red streaks in the skin near the incision Pus or fouls smelling drainage from the incision Pain or discomfort around the incision Bleeding or oozing that doesn't lessen Post Procedure Bleeding: If you have bleeding, elevate the area with the incision, and apply direct pressure for at least 10minutes. If you think you have an infection, are having any of the above symptoms, bleeding that does not stop after 10 minutes of direct pressure, or have any other problems, questions, or concerns please call Dr. Pelaez at our office at [phone] 8am-5pm (weekdays) or after hours call and ask to have the occasional caregiver for Neurology paged. These instructions have been verbally reviewed by provider with patient and all patient questions answered. documented in this encounter Medications at Time of Discharge Medication Sig Dispensed Refills Start Date End Date Trulicity 3 mg/0.5 mL Pen Injector once [...] a day 03/12/2015 naloxone (Narcan) 4 mg/actuation [place], Non-Aerosol Once 03/10/2019 magnesium oxide (MAG-OX) 400 [...] capsule Take 20 mg by mouth daily. PARoxetine (PAXIL) 40 mg Tablet Take 40 mg by mouth daily. 11/25/2021 03/09/2023 losartan (Cozaar) 25 mg Tablet Take 25 mg by mouth daily. 11/27/2021 05/12/2023 pregabalin (Lyrica) 75 mg Capsule Three times a day 03/06/2017 07/13/2023 nicotine (NICODERM CQ) 7 mg/24 hr Patch 24 hr APPLY 1 PATCH TOPCAILLY TO HAIRLESS SKIN DAILY ROTATE SKIN SITES 05/27/2021 03/09/2023 Nicotrol 10 mg Cartridge INHALE CONTENTS FROM 1 CARTRIDGE PER HOUR NEEDED 05/27/2021 03/09/2023 metoprolol succinate (TOPROL-XL) 50 mg 24 hr tablet Take 50 mg by mouth daily. 03/12/2023 HYDROmorphone (DILAUDID) 2 mg tablet Take 1 tablet by mouth every 4 hours as needed for Pain. 20 tablet 0 06/03/2012 07/15/2023 documented as of this encounter H&P Notes * Denisse Pelaez MD - 07/07/2022 1:47 PM EDT Patient here for muscle biopsy at the request of Dr. Harkins. ?? No c/o SOB, CP or Abd pain. No blood thinners. No prostheses. ?? Cor S1S2 without murmurs Lungs clear with good BS Abd benign No peripheral cyanosis with good pulses. ? As) Stable for muscle biopsy ?? P) Proceed with muscle biopsy documented in this encounter Nursing Notes * Manohar Bacon RN - 07/07/2022 1:50 PM EDT 1350 - Procedure procedure complete. Lab specimen and labels to pathology in room. Dressing placed by Dr. Pelaez. Post op instructions given to patient by Dr. Pelaez. Discharge instructions and AVSgiven to patient. All questions answered. Patient provided with ice pack. Wheelchair to patient ride for discharge. documented in this encounter Miscellaneous Notes * Op Note - Denisse Pelaez MD - 07/07/2022 1:06 PM EDT [facility] Operative Note Patient Name: Jammie Gottlieb : [id number] MR#: [id number] Case Date: 07/07/2022 Surgeon: Surgeon(s) and Role: * Denisse Pelaez MD - Primary Preoperative diagnosis: Muscular dystrophy Postoperative diagnosis: Muscular dystrophy Procedure(s) (LRB): (MSURG) MUSCLE BIOPSY, DEEP (N/A) Surgeon: Surgeon(s) and Role: * DENISSE PELAEZ MD - Primary Procedure(s): BIOPSY OF MUSCLE, DEEP, LOWER EXTREMITY Local: 13 cc 1%lido with epi Estimated Blood Loss: 1cc Drains: none Disposition: home Condition: stable (Please see the Surgical Encounter Summary for any Implant and Specimen details pertinent to this patient.) HPI/Surgical Indications: muscle weakness Procedure Description: A time-out was conducted just before the start of the procedure to verify the correct patient and procedure, procedure location, and all relevant clinical/critical information. The patient was put in a supine position on the operating table. her left lateral thigh was prepped with antiseptic solution, and 13-14 mL of 1% lidocaine was injected into the skin overlying the vastus lateralis muscle. Sterile drapes were applied. With a 15.0 scalpel blade, the skin was incised and then the subcutaneous tissue bluntly dissected down to the muscle fascia, which was opened with Metzenbaum scissors. Four specimens of bright red muscle were obtained using muscle clamps, two of which were frozen at the bedside in liquid nitrogen. The muscle, fascia, and subcutaneous tissue were then approximated with 3-0 Vicryl sutures. The skin was closed with a running 3-0 Ethilon suture. Mastisol solution was applied to the skin and Steri-Strips applied over the wound. A sterile dressing was then applied. The patient tolerated the procedure with no obvious complications. Postoperative instructions were given to the Patient. Attestation: I did the procedure myself. documented in this encounter Plan of Treatment Upcoming Encounters Date Type Department Care Team (Late st Contact Info) Description 07/09/2024 10:00 AM EDT Hospital Encounter Non-Invasive [place] [address] Arrived documented as of this encounter Procedures Procedure Name Priority Date/Time Associated Diagnosis Comments SPECIMEN TO PATHOLOGY Routine 07/07/2022 1:06 PM EDT (MSURG) MUSCLE BIOPSY, DEEP Yes 07/07/2022 12:59 PM EDT (muscular dystrophy) SURGICAL PATHOLOGY REPORT Routine 07/07/2022 12:35 PM EDT documented in this encounter Results * Specimen to Pathology (07/07/2022 1:06 PM EDT) AP Specimen 07/07/2022 1:06 PM EDT 07/07/2022 1:06 PM EDT Narrative [facility] - 07/07/2022 1:06 PM EDT Specimen requisition ordered. ??Separate Pathology report to follow Denisse Pelaez MD PATHOLOGY/CYTOLOGY O RDERABLES [facility] [place] [address] * Surgical Pathology Report (07/07/2022 12:35 PM EDT) Surgical Pathology Report [id number] ? Location: OR; [facility]; A The signing pathologist has (i) examined the relevant preparation(s) for the specimen(s) and (ii) rendered or confirmed the diagnosis(es). . ?Surgical Pathology DIAGNOSIS A- Left vastus lateralis, biopsy: Skeletal muscle with mild, nonspecific changes (see comment). Comment: This muscle biopsy fails to reveal any alterations that would suggest a myopathic process. Electronically signed by: ?Derrell GROVER, Jarad Garcia Verified: ??07/18/2022 16:14 ??Pathologist Performed at: ??-[facility] Dept. of Pathology, [place], [place] SYNOPTIC none DISCUSSION Paraffin-embedded fragments of skeletal muscle stained with H&E show mild variation in muscle fiber size and shape. Highly atrophic fibers are not conspicuous. There are no necrotic, degenerating or regenerating fibers. There is no increase in internal nuclei. There is adipose tissue in the perimysium. There is no evidence of inflammation or vasculitis. ADDITIONAL STUDIES Multiple frozen sections of skeletal muscle were obtained and stained with a variety of histochemical stains. The features exhibited are as follows: H&E stain: The muscle shows very mild variation of fiber size and shape. It is negative for fiber necrosis, degeneration or regeneration. There is no increase in internal nuclei. There is no inflammation or vasculitis. There are rare large muscle cell nuclei. Trichrome stain: There is no increase in endomysial collagen. There are no definite ragged red fibers. There are rare cytoplasmic bodies. NADH stain: There is a mild type II fiber predominance. The internal architecture of the muscle fibers is within normal limits. ATPase stain (pH 9.4): There is no fiber type grouping ?in the background of mild type 2 predominance. PAS: The muscle fibers contain a normal amount of glycogen. There is no evidence of a glycogen storage disorder. Oil red ??'O' stain: There is a mild increase in the number and size of the lipid droplets in the muscle fibers. Esterase: There is increased esterase staining in a small subset of scattered atrophic, angulated fibers. Acid phosphatase: no abnormally aggregated enzymatic reactivity in sarcoplasm. Myophosphorylase, phosphofructokinase and myoadenylate deaminase: histochemically normal. Immunohistochemistry Studies: . ADDITIONAL STUDIES Formalin-fixed, paraffin-embedded tissue sections are studied using the polymer technique with appropriate positive and negative controls. ?These IHC studies provide the pathologist with adjunctive diagnostic information. Antibody specificity has been verified by testing antibodies on a series of in-house tissues with known immunohistochemical performance characteristics. The clinical interpretation of any antibody positive staining or its absence is evaluated within the context of clinical presentation, morphology, histopathological criteria and other diagnostic tests. Block ??Antibody ??Result A2 ?desmin ? Normal expression. Cytoplasmic aggregates are not conspicuous. Electron microscopy is deferred for the present due to the nonspecific nature of the changes observed. Appropriately prepared tissue is retained should ultrastructural studies be needed in the future. SPECIMEN(S) SUBMITTED A - Left vastus lateralis, biopsy (4) CLINICAL INFORMATION Left vastus lateralis SPECIMEN PROCESSING A - Labeled/Fixative: Left vastus lateralis, fresh. Quantity/Size: Four, averaging 1.2 x 0.4 cm. Tissue Description: Red-brown biopsies of skeletal muscle received on muscle biopsy clamps. Also received are a few detached adipose tissue fragments. Sections/Processing: Open Winder sections in 2 cassettes as follows: ?A1: ??Frozen in OCT for histochemistry. ?A2: ??Fixed in formalin for light microscopy. ??sns [facility] 07/07/2022 12:3 5 PM EDT Denisse Pelaez MD PATHOLOGY/CYTOLOGY O RDERABLES [facility] [place] [address] documented in this encounter Visit Diagnoses Not on filedocumented in this encounter Active and Recently Administered Medications Times are shown in EDT. PRN Medication Order 07/05/2022 07/06/2022 07/07/2022 lidocaine-EPINEPHrine (1% - 1:100,000) injection (CANCELED) ONCE PRN, Starting on Thu07/07/22 at 1307, Until Thu07/07/22 at 1511, Intra-Operative (Intra-Procedure), Routine 1307 (Given - Provid er: Denisse Pelaez MD) documented in this encounter Care Teams Wood Mechanist Relationship Specialty Start Date End Date Edie Ellis MD [address] [place] [address] PCP - General 10/15/10 documented as of this encounter
--- OUTSIDE RECORDS SUMMARY | 2024-06-03 00:24 | XMS_ITS | Encounter Summary ---
Author Organization [facility] [place] [address] Care Team Providers Care Account Officer Name Role Phone Edie Ellis MD Primary Care Provider [phone] Reason for Visit * Reason Onset Date Comments Medication Refill 06/03/2023 Entresto dose increase to 49-51 bid Encounter Details Date Type Department Care Team (Late st Contact Info) Description 06/03/2023 Refill Cardiology at [address] [address] Kina Awad PA [facility] [place] [address] Medication Refill (Entresto dose increase to 49-51 bid) Social History Tobacco Use Types Packs/Day Years [...] AM EDT Hospital Encounter Non-[place] [address] Arrived documented as of this encounter Visit Diagnoses Diagnosis HFrEF (heart failure with reduced ejection fraction) documented in this encounter Care Teams Account Officer Relationship Specialty Start Date End Date Edie Ellis MD [address] [place] [address] PCP - General 10/15/10 documented as of this encounter
--- OUTSIDE RECORDS SUMMARY | 2024-06-03 00:24 | XMS_ITS | Encounter Summary ---
Author Organization [facility] [place] [address] Care Team Providers Care Dross Skimmer Name Role Phone Edie Ellis MD Primary Care Provider [phone] Encounter Details Date Type Department Care Team (Late st Contact Info) Description 06/03/2022 Notes [place] [address] Tila Berry Social History Tobacco Use Types Packs/Day Years [...] as of this encounter Progress Notes * Tila Berry - 06/03/2022 8:29 AM EDT Patient provided assistance in returning home from her scheduled appointment. documented in this encounter Plan of Treatment Upcoming Encounters Date Type Department Care Team (Late st Contact Info) Description 07/09/2024 10:00 AM EDT Hospital Encounter Non-[place] [address] Arrived documented as of this encounter Visit Diagnoses Not on filedocumented in this encounter Care Teams Dross Skimmer Relationship Specialty Start Date End Date Edie Ellis MD [facility] [address] [facility] [address] [place] [address] PCP - General 10/15/10 documented as of this encounter
--- OUTSIDE RECORDS SUMMARY | 2024-06-03 00:24 | XMS_ITS | Encounter Summary ---
Author Organization [facility] [place] [address] Care Team Providers Care Parts Back Counter Man Name Role Phone Edie Ellis MD Primary Care Provider [phone] Encounter Details Date Type Department Care Team (Late st Contact Info) Description 09/07/2022 7:40 PM EDT Ancillary Procedure [place] [address] Nogc Hernandez MD [facility] [place] [address] Social History Tobacco Use Types Packs/Day Years [...] AM EDT Hospital Encounter Non-Invasive [place] [address] Arrived documented as of this encounter Procedures Procedure Name Priority Date/Time Associated Diagnosis Comments FILM LIBRARY STORAGE ONLY CT CHEST Routine 09/07/2022 7:35 PM EDT documented in this encounter Results * Film Library- Storage Only CT Chest (09/07/2022 7:35 PM EDT) Narrative RAD - 09/07/2022 7:35 PM EDT This exam is auto-finalizing. It's purpose is for storage only. Ngoc Hernandez MD IMG FILM LIBRARY ORD ERABLES [place], [place] documented in this encounter Visit Diagnoses Not on filedocumented in this encounter Care Teams Parts Back Counter Man Relationship Specialty Start Date End Date Edie Ellis MD [facility] [address] [place] [address] PCP - General 10/15/10 documented as of this encounter
--- OUTSIDE RECORDS SUMMARY | 2024-06-03 00:24 | XMS_ITS | Encounter Summary ---
Author Organization [facility] [place] [address] Care Team Providers Care J2Ee Android Developer Name Role Phone Edie Ellis MD Primary Care Provider [phone] Encounter Details Date Type Department Care Team (Late Contact Info) Description 08/05/2022 Telephone Neurology at [facility] [place] [place] [phone] Kieran Harkins MD [facility] [place] [address] Social History Tobacco Use Types Packs/Day Years [...] encounter Miscellaneous Notes * Telephone Encounter - Kieran Harkins MD - 08/05/2022 1:07 PM EDT Called and informed negative muscle biopsy results Kieran Harkins MD Department of Neurology documented in this encounter Plan of Treatment Upcoming Encounters Date Type Department Care Team (Late st Contact Info) Description 07/09/2024 10:00 AM EDT Hospital Encounter Non-Invasive [place] [phone] Arrived documented as of this encounter Visit Diagnoses Not on filedocumented in this encounter Care Teams J2Ee Android Developer Relationship Specialty Start Date End Date Edie Ellis MD [facility] [address] [place] [address] PCP - General 10/15/10 documented as of this encounter
--- OUTSIDE RECORDS SUMMARY | 2024-06-03 00:24 | XMS_ITS | Encounter Summary ---
Author Organization [facility] [place] [address] Care Team Providers Care Scada Technician Name Role Phone Edie Ellis MD Primary Care Provider [phone] Encounter Details Date Type Department Care Team (Late st Contact Info) Description 01/23/2023 Ancillary Procedure [place] [phone] Edie Ellis MD [facility] [address] [place], [place] [id number] Social History Tobacco Use Types Packs/Day Years [...] AM EDT Hospital Encounter Non-Invasive [place] [phone] Arrived documented as of this encounter Procedures Procedure Name Priority Date/Time Associated Diagnosis Comments FILM LIBRARY STORAGE ONLY MR SPINE Routine 01/23/2023 12:00 AM EST documented in this encounter Results * Film Library- Storage Only MR Spine (01/23/2023 12:00 AM EST) Narrative [facility] - 01/25/2023 8:57 PM EST This exam is auto-finalizing. It's purpose is for storage only. Edie Ellis MD G FILM LIBRARY ORD ERABLES Performing Organization Address City/State/[facility] Co de Phone Number [place], [place] documented in this encounter Visit Diagnoses Not on filedocumented in this encounter Care Teams Scada Technician Relationship Specialty Start Date End Date Edie Ellis MD [facility] [address] [place] [address] PCP - General 10/15/10 documented as of this encounter
--- OUTSIDE RECORDS SUMMARY | 2024-06-03 00:24 | XMS_ITS | Encounter Summary ---
Author Organization [facility] [place] [address] Care Team Providers Care Supervisor Brine Name Role Phone Edie Ellis MD Primary Care Provider [phone] Encounter Details Date Type Department Care Team (Late st Contact Info) Description 04/08/2022 Ancillary Procedure [place] [phone] Edie Ellis MD [facility] [address] [place], [place] [phone] Social History Tobacco Use Types Packs/Day Years [...] AM EDT Hospital Encounter Non-[place]vasive [place] [phone] Arrived documented as of this encounter Procedures Procedure Name Priority Date/Time Associated Diagnosis Comments FILM LIBRARY STORAGE ONLY MR SHOULDER Routine 04/08/2022 12:00 AM EDT documented in this encounter Results * Film Library- Storage Only MR Shoulder (04/08/2022 12:00 AM EDT) Narrative [facility] - 04/11/2022 10:37 AM EDT This exam is auto-finalizing. It's purpose is for storage only. Edie Ellis MD G FILM LIBRARY ORD ERABLES [place], [place] documented in this encounter Visit Diagnoses Not on filedocumented in this encounter Care Teams Supervisor Brine Relationship Specialty Start Date End Date Edie Ellis MD [facility] [address] [place] [address] PCP - General 10/15/10 documented as of this encounter
--- OUTSIDE RECORDS SUMMARY | 2024-06-03 00:24 | XMS_ITS | Encounter Summary ---
[place] [address] Care Team Providers Care Biomedical Specialist Name Role Phone Edie Ellis MD Primary Care Provider [phone] Reason for Referral * Consultation (Routine) - Closed Specialty Diagnoses / Procedures Referred By Geraldine olmedo Referred To Contact Orthopaedics Diagnoses RIGHT SHOULDER PARTIAL ROTATOR CUFF TEAR Edie Ellis MD [address] [place] [address] [facility]opa[facility] [address] [place] [phone] Referral ID Status Reason Start Date Expiration Date V isits Requested Visits Authorized [id number] Closed Consult, Test & Treat PCP Updated and/or Approved 04/10/2023 04/09/2024 6 6 Encounter Details Date Type Department Care Team (Latest Contact Info) Description 04/10/2023 Transcribe Orders eDH Incoming Referrals [phone] Edie Ellis MD [address] [place] [address] Traumatic rotator cuff tear, unspecified laterality, unspecified tear extent, subsequent encounter Social History Tobacco Use Types Packs/Day [...] AM EDT Hospital Encounter Non[place] [address] Arrived Scheduled Referrals Name Type Priority Associated Diagnoses Orde r Schedule Referral to Orthopaedics Outpatient Referral Routine Traumatic rotator cuff tear, unspecified laterality, unspecified tear extent, subsequent encounter Ordered: 04/10/2023 documented as of this encounter Visit Diagnoses Diagnosis Traumatic rotator cuff tear, unspecified laterality, unspecified tear extent, subsequent encounter documented in this encounter Care Teams Biomedical Specialist Relationship Specialty Start Date End Date Edie Ellis MD [address] [place] [address] PCP - General 10/15/10 documented as of this encounter
--- OUTSIDE RECORDS SUMMARY | 2024-06-03 00:24 | XMS_ITS | Encounter Summary ---
Author Organization [facility] Address [facility] [place] [address] Care Team Providers Care Physical Education Department Chair Name Role Phone Edie Ellis MD Primary Care Provider [phone] Encounter Details Date Type Department Care Team (Latest Contact Info) Description 03/12/2023 10:26 AM EDT - 03/12/2023 11:59 PM EDT Hospital Encounter XRay at [address] [place] [address] Loyda Barrios MD [facility] [place] [address] Community acquired pneumonia, unspecified laterality Discharge Disposition: Home Social History Tobacco Use [...] Sig Dispensed Refills Start Date End Date omega-3 acid ethyl esters (Lovaza) 1 gram [...] a day 03/12/2015 naloxone (Narcan) 4 mg/actuation [place], Non-Aerosol Once 03/10/2019 magnesium oxide (MAG-OX) 400 [...] capsule Take 20 mg by mouth daily. empagliflozin (Jardiance) 10 mg tablet Take 10 mg by mouth daily. 07/13/2023 bupropion HCl (WELLBUTRIN ORAL) Take 450 mg by mouth 2 times daily. 01/29/2024 losartan (Cozaar) 25 mg Tablet Take 25 mg by mouth daily. 11/27/2021 05/12/2023 pregabalin (Lyrica) 75 mg Capsule Three times a day 03/06/2017 07/13/2023 HYDROmorphone (DILAUDID) 2 mg tablet Take 1 tablet by mouth every 4 hours as needed for Pain. 20 tablet 0 06/03/2012 07/15/2023 documented as of this encounter Plan of Treatment Upcoming Encounters Date Type Department Care Team (Late st Contact Info) Description 07/09/2024 10:00 AM EDT Hospital Encounter Non-Invasive [place] [address] Arrived documented as of this encounter Procedures Procedure Name Priority Date/Time Associated Diagnosis Comments XR CHEST PA AND LATERAL Routine 03/12/2023 10:34 AM EDT Community acquired pneumonia, unspecified laterality documented in this encounter Results * XR Chest PA & Lateral (Generic) (03/12/2023 10:34 AM EDT) Anatomical Region Laterality Modality Chest N/A Digital Radiogra phy Impressions 03/12/2023 11:56 AM EDT 1. ??Normal radiographic appearance of the chest. Thank you for letting us participate in the care of this patient. ??If you are a health care provider and have any questions regarding this report, please contact the number below. ??For patients who have questions please contact the health college and career counselor that requested your imaging first. ? Electronically signed by: Felisa Carlisle MD, [facility] ([phone]), at 03/12/2023 11:56 AM Narrative 03/12/2023 11:56 AM EDT EXAMINATION: XR CHEST PA AND LATERAL (GENERIC) CLINICAL HISTORY: Follow up after treatment for PNA in the fall, describes chest pain (as entered by ordering provider in the order requisition) TECHNIQUE: PA and lateral views of the chest COMPARISON: CT of the chest 09/07/2019. Chest radiograph 07/01/2021 FINDINGS: Normal size of the cardiac silhouette. Normal contour of the cardiac mediastinal and hilar silhouettes. No focal consolidation. No pleural effusion or pneumothorax. Procedure Note Felisa Carlisle MD - 03/12/2023 EXAMINATION: XR CHEST PA AND LATERAL (GENERIC) CLINICAL HISTORY: Follow up after treatment for PNA in the fall, describeschest pain (as entered by ordering provider in the order requisition) TECHNIQUE: PA and lateral views of the chest COMPARISON: CT of the chest 09/07/2019. Chest radiograph 07/01/2021 FINDINGS: Normal size of the cardiac silhouette. Normal contour of the cardiacmediastinal and hilar silhouettes. No focal consolidation. No pleural effusion or pneumothorax. IMPRESSION 1. Normal radiographic appearance of the chest. Thank you for letting us participate in the care of this patient. If youare a health care provider and have any questions regarding this report,please contact the number below. For patients who have questions please contactthe health college and career counselor that requested your imaging first. Loyda Barrios MD IMG DX ORDERABLES documented in this encounter Visit Diagnoses Diagnosis Community acquired pneumonia, unspecified laterality documented in this encounter Care Teams Physical Education Department Chair Relationship Specialty Start Date End Date Edie Ellis MD [address] [place] [address] [address] [place] [address] PCP - General 10/15/10 documented as of this encounter
--- OUTSIDE RECORDS SUMMARY | 2024-06-03 00:24 | XMS_ITS | Encounter Summary ---
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 Muscle weakness Kina Awad PA [facility] [place] [address] [facility] Neurology [address] [place] [phone] Referral ID Status Reason Start Date Expiration Date V isits Requested Visits Authorized [id number] Closed Consult, Test & Treat 01/02/2022 01/02/2023 1 1 Encounter Details Date Type Department Care Team (Late st Contact Info) Description 06/03/2022 8:30 AM EDT Office [place] [address] Kieran Harkins MD [facility] [place] [address] Muscular dystrophy Social History Tobacco Use Types Packs/Day Years [...] as of this encounter Progress Notes * Kiearn Harkins MD - 06/03/2022 8:30 AM EDT NEUROLOGY CLINIC [facility] [place] [address] 06/03/2022 Patient name: Jammie Gottlieb Date of : 1975 Referring provider: Kina Awad PA [facility] [place] [address] HISTORY REASON FOR REFERRAL/CHIEF COMPLAINT: TTN gene mutation. HISTORY OF PRESENTING COMPLAINTS: Referred from cardiology for evaluation of ? TTN gene mutation related muscular dystrophy She had genetic testing done following palpitation and diagnosis of CMP in 2009. She says that her muscles aches, she has fallen few times. She has aching in her hip shoulders back. She has tingling all over. Her father, aunt and uncles have the same condition. Her aunt had muscle disease but was never diagnosed with genetic testing. She has 2 brothers. She has not spoken to them for a long time and doesn't know if they have the condition. Her daughter has been diagnosed with cardiomyopathy. She was seenby genetic counselor and advised to have further genetic testing. There was some concern for her having Pompe in the past but now the concern was for muscular dystrophy. She says she was recommended muscle biopsy. 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 Had a back surgery for radiculopathy in the past. Her aching and pain started 2 years ago and has gotten progressively worse. She is now having disc issues in her neck. She feels like her legs and hips give out. She could just drop down following that. She had a seizure episode 2 years ago and was put on Keppra. She is now off of it. She used to haveheadaches and takes naratriptan. She had previously seen Neurology at [facility] and had UE testing done showing CTS. PMHx: Past Medical History: Diagnosis Date ??? Allergy pennicillin sulfer ??? Anxiety ??? 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 Diabetes mellitus ??? Elevated cholesterol ??? Headache(784.0) migraine 1/2 month ??? Hypercholesterolemia ??? Hypertensive disease ??? Lumbar radiculopathy ??? Mental or behavioral problem ??? T2DM 06/09/2021 CTS : s/p release. Past Surgical History: Procedure Laterality Date ??? SECTION ??? LUMBAR LAMINECTOMY ??? PRO PERCUT IMPLNT NEUROELECT, EPIDURAL 06/03/2012 PERC IMPLANTATION NEUROSTIMULATOR ELECTRODE ARRAY, EPIDURAL performed by CARINE CHATTERJEE at [facility] ??? PRO UNLISTED PROCEDURE, MUSCULOSKELETAL SYSTEM, GENERAL 04/26 L4- L5? disk surgery ??? PRO UNLISTED PX FEMALE GEN SYS 09/15/00 02/17/10 c-sections Family History: Family History Problem Relation Age of Onset ??? Alcohol Use Disorder Mother ??? Diabetes Mother plus others ??? Cancer Maternal Aunt overian ??? Diabetes Maternal Grandmother ??? Stroke Maternal Grandmother ??? Diabetes Maternal Grandfather ??? Diabetes Maternal Uncle ??? Diabetes Paternal Grandmother Social History: reports that she has been smoking cigarettes. She has smoked for the past 3.00 years. She has neverused smokeless tobacco. She reports previous alcohol use. She reports that she does not use drugs. No flowsheet data found. Has been on disability since 2007. Review of systems: [x] Review of systems otherwise negative Medications: Current Outpatient Medications on File Prior to Visit Medication Sig Dispense Refill ??? Trulicity 3 mg/0.5 mL Pen Injector once a week. ??? prochlorperazine (Compazine) 10 mg Tablet Take 10 mg by mouth as needed. ??? PARoxetine (PAXIL) 40 mg Tablet Take 40 mg by mouth daily. ??? valACYclovir (Valtrex) 500 mg Tablet Take 500 mg by mouth nightly. ??? naproxen (NAPROSYN) 500 mg Tablet 2 times daily. ??? hydrocortisone 2.5 % Cream as needed. ??? losartan (Cozaar) 25 mg Tablet Take 25 mg by mouth daily. ??? cholecalciferol, Vitamin D3, 50 mcg (2,000 unit) Capsule TAKE 1 CAPSULE BY MOUTH DAILY ??? pregabalin (Lyrica) 75 mg Capsule Three times a day ??? cyanocobalamin, Vitamin B-12, (Vitamin B-12) 1,000 mcg Tablet TAKE 1 TABLET BY MOUTH EVERY DAY ??? estradioL (Estrace) 1 mg Tablet 2 times daily. ??? Aerochamber Max with Flow-VU Spacer USE DIRECTED ??? lamoTRIgine (LaMICtal) 100 mg Tablet TAKE 1 TABLET BY MOUTH EVERY DAY ??? levothyroxine (Synthroid) 25 mcg Tablet Bedtime ??? loratadine (Claritin) 10 mg Tablet TAKE 1 TABLET BY MOUTH EVERY DAY NEEDED ??? metFORMIN XR (Glucophage XR) 500 mg Tablet Sustained Release 24 hr Twice a day ??? naloxone (Narcan) 4 mg/actuation [place], Non-Aerosol Once ??? nicotine (NICODERM CQ) 7 mg/24 hr Patch 24 hr APPLY 1 PATCH TOPCAILLY TO HAIRLESS SKIN DAILY ROTATE SKIN SITES ??? Nicotrol 10 mg Cartridge INHALE CONTENTS FROM 1 CARTRIDGE PER HOUR NEEDED ??? magnesium oxide (MAG-OX) 400 mg tablet Take 400 mg by mouth 2 times daily. ??? metoprolol succinate (TOPROL-XL) 50 mg 24 hr tablet Take 50 mg by mouth daily. ??? Riboflavin 25 mg Tablet Take 200 mg by mouth 2 times daily. ? ? VITAMIN B COMPLEX & VIT C NO.3 (VITAMIN B COMP & C NO.3 ORAL) Take 1 mg by mouth. ??? valACYclovir (VALTREX) 1 g tablet Take 1,000 mg by mouth as needed. ??? aspirin 81 mg EC tablet Take 81 mg by mouth daily. ??? rosuvastatin (CRESTOR) 10 mg tablet Take 10 mg by mouth every evening. ??? HYDROmorphone (DILAUDID) 2 mg tablet Take 1 tablet by mouth every 4 hours as needed for Pain. (Patient taking differently: Take 2 mg by mouth 2 times daily.) 20 tablet 0 ??? naratriptan (AMERGE) 2.5 mg tablet Take 2.5 mg by mouth as needed. Take one (1) tablet at onsetof headache; if returns or does not resolve, may repeat after 4 hours; do not exceed five (5) mg in24 hours. ??? polyethylene glycol (MIRALAX) 17 gram packet Take 17 g by mouth as needed. ??? albuterol (PROVENTIL HFA;VENTOLIN HFA) 90 mcg/Actuation inhaler Inhale 2 puffs into the lungs every 4 hours as needed. Use with spacer ??? omeprazole (PRILOSEC) 20 mg capsule Take 20 mg by mouth daily. No current facility-administered medications on file prior to visit. Allergies: Allergies Allergen Reactions ??? Penicillins Anaphylaxis Other reaction(s): throat closes ??? Sulfa (Sulfonamide Antibiotics) Hives Other reaction(s): Hives EXAMINATION Vitals: There were no vitals taken for this visit. General Examination: Appearance: alert, no distress. High BMI Cardiovascular: Rate regular, S1S2 normal, no murmur Respiratory: Symmetric expansion, lungs clear to auscultation Extremity: no edema Skin: No rashes noted Neurological Examination o Higher functions: - Speech: fluent, no aphasia/dysarthria or dysphonia - Alert and oriented. o Cranial Nerves - II-XII: Pupils bilaterally equal and symmetric conjugate gaze, reacting to light. No ptosis/nystagmus. Vision normal. No field deficits. EOMI. No facial droop. o Reflexes - +2 Bilaterally biceps, BR , knee and +1 ankles. o Motor and Coordination - Proximal muscle wasting + with slight weakness. o Sensory - Normal sensations bilaterally. o Skull and Spine/ Gait - Normal - Normal gait LABS AND IMAGING Labs GENERAL THYROID: Lab Results Component Value Date TSH 0.85 06/17/2021 FolateNo results found for: SFOLATE ESRNo results found for: SEDRATE CRPNo results found for: CRP B12No results found for: [id number] CK Lab Results Component Value Date CK 32 01/02/2022 Angiotensin ConvertaseNo results found for: REEMA INFECTIONS HIVNo results found for: HIV12 HEPATITIS PANELNo results found for: HAV, HEPBSAB, HBEAG, HEPBSAG, HEPCAB AUTOIMMUNE PANEL ANANo results found for: SHARATH DSDNANo results found for: DNAABDS Maxine results found for: ROMY C3,C4, COMPLEMENTSNo results found for: C3, C4 CARDIOLIPIN, LUPUSNo components found for: CARDIOLIPINANTIBODY, LUPUS, ANTICOAGULANT CELIAC: TTG, GLIADIN, ENDOMYSIALNo components found for: TTRANSGLUTAMINASEANTIBODY ANTIGLIADINANTIBODY VASCULITIS: C,P,ANCA, MPONo results found for: PANCA, CANCA, MYELOP, PR3AB NMONo components found for: NEUROMYELITISOPTICAANTIBODY MG: ACHRAB, Anit MuSK, LEMSNo components found for: ACETYLCHOLINERECEPTORABBINDING, LEMSANTIBODY, ANTISKELETALMUSCLEANTIBODY CRYOGLOBULINSNo components found for: CRYOGLOBULINS METABOLIC CERULOPLASMINNo components found for: CERULOPLASMIN BETA 2 MICROGLOBULINNo results found for: B2MG No results found for: TPROTEINPEP, ALBELECT, ALPHA1, ALPHA2, GAMMAGLOB, APB1 CORTISOLNo results found for: CORTISOL LDH No results found for: LDH NUTRITIONAL VITAMIN DNo results found for: 25OHVITD PRE ALBUMINNo results found for: PREALBUMIN FERRITINNo results found for: IRON COPPERNo results found for: COPPER PERIPHERAL NEUROPATHY HEMOGLOBIN A1CNo results found for: HA1C LIPID PROFILE Lab Results Component Value Date CHLPL 144 06/17/2021 HDL 30 06/17/2021 CHOLHDL 4.8 06/17/2021 TRIG 489 06/17/2021 LDLCHOL Not Calculated 06/17/2021 LDLDIRECT 60 06/17/2021 SHAHAB 65No results found for: ZPL82KH ANTI GM1,ANTI SGPG, MAG@RESUFAST (MAGAUTOAB,SGPG,MAGWB,GM1AB)@ HEAVY METAL SCREENNo results found for: LEAD, ARSENIC METHYLMLONIC ACIDNo results found for: METHYLMAL IgA, IGG No results found for: IGA, IGG CSF PANEL No results found for: NUCCELMANCSF, RBCCSFCT, SEGSCSF, LYMPHSCSF, NUMCELLCTCSF, CSFGLUC, CSFPROTEIN, XANTHOCHROM, MCSBFTYPE, MCS, CSFIGGINDEX, LYMEAB, VDRLSCRNCSF, OLIGOCSF, HSVDNA, ARBOWNILECSF, ENTVPCR, VZVPCR PARANEOPLASTIC PANEL No results found for: PARANEOINTRP, ANNA1, ANNA2, ANNA3, AGNA1, PCA1, PCA2, PCATYPETR, AMPHIPHYSIN,HVMO0YIE, STRIATMSCLAB, CACHABPQTYPE, CACHABNTYPE, ACHRBINDAB, NEUROKCHAB, NMDARECEPTOR, VBJ34RL THROMBOSIS HOMEOCYSTEINENo results found for: HOMOCYSTEINE THROMBOSIS PANELNo results found for: ACAIGM, [id number] FACTOR V LEIDEN No components found for: FACTORVLEIDEN PROTEIN C,SNo components found for: PROTEINC, PROTEINS ANTITHROMBIN IIINo components found for: ANTITHROMBINIII Miscellaneous Send outs Lab Results Component Value Date MISCSENDOUT See Note 10/25/2021 ASSESSMENT, PLAN & RECOMMENDATIONS ASSESSMENT: 46 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 On evaluation she has proximal muscle wasting with slight weakness. CK levels normal. EMG doesn't show any obvious myopathic features at this time. Old radiculopathy changes + IMPRESSION: ? Titin Gene Mutation related Muscular Dystrophy PLAN/RECOMMENDATIONS: ??? Clinically there is possibility of her having titin gene mutation related muscular dystrophy, even though no obvious EMG changes or elevation in CK at this time ??? Will obtain muscle biopsy to evaluate further. ??? Will arrange visits and follow up with [facility] clinic if muscle biopsy findings are positive. ??? Physical therapy recommended for strengthening. ??? Follow ups based on above. Kieran Harkins MD Department of Neurology [facility] documented in this encounter Plan of Treatment Upcoming Encounters Date Type Department Care Team (Late st Contact Info) Description 07/09/2024 10:00 AM EDT Hospital Encounter Non[place] [address] Arrived documented as of this encounter Procedures Procedure Name Priority Date/Time Associated Diagnosis Comments EMG WITH F-WAVE Routine 06/03/2022 documented in this encounter Results * EMG WITH F-WAVE (06/03/2022) Historical Provider NEUROLOGY ORDERAB LES documented in this encounter Visit Diagnoses Diagnosis Muscular dystrophy Hereditary progressive muscular dystrophy documented in this encounter Care Teams Handkerchief Sample Clerk Relationship Specialty Start Date End Date Rhonda, Edie C, MD [address] [place] [address] PCP - General 10/15/10 documented as of this encounter
--- OUTSIDE RECORDS SUMMARY | 2024-06-03 00:24 | XMS_ITS | Encounter Summary ---
Author Organization Formerly [facility] [place] [address] Care Team Providers Care Cattle Sorter Name Role Phone Edie Ellis MD Primary Care Provider [phone] Encounter Details Date Type Department Care Team (Late st Contact Info) Description 02/11/2022 Ancillary Procedure [place] [phone] Edie Ellis MD [facility] [address] [place], [place] [id number] Social History Tobacco Use Types Packs/Day Years [...] AM EDT Hospital Encounter Non-Invasive [place] [phone] Arrived documented as of this encounter Procedures Procedure Name Priority Date/Time Associated Diagnosis Comments FILM LIBRARY STORAGE ONLY DX SHOULDER Routine 02/11/2022 12:00 AM EDT documented in this encounter Results * Film Library- Storage Only DX Shoulder (02/11/2022 12:00 AM EDT) Narrative [facility][NOTE 3] - 04/11/2022 10:39 AM EDT This exam is auto-finalizing. It's purpose is for storage only. Edie Ellis MD G FILM LIBRARY ORD ERABLES [place], [place] documented in this encounter Visit Diagnoses Not on filedocumented in this encounter Care Teams Cattle Sorter Relationship Specialty Start Date End Date Edie Ellis MD [facility] [address] [place] [address] PCP - General 10/15/10 documented as of this encounter
--- OUTSIDE RECORDS SUMMARY | 2024-06-03 00:24 | XMS_ITS | Encounter Summary ---
Author Organization [facility] [place] [address] Care Team Providers Care Laboratory Monitor Name Role Phone Edie Ellis MD Primary Care Provider [phone] Encounter Details Date Type Department Care Team (Late st Contact Info) Description 04/10/2023 Orders Only Cardiology at [address] [phone] Kina Awad PA [facility] [place] [address] Social History Tobacco Use Types Packs/Day Years [...] AM EDT Hospital Encounter Non-Invasive [place]iology [place] [phone] Arrived documented as of this encounter Visit Diagnoses Not on filedocumented in this encounter Care Teams Laboratory Monitor Relationship Specialty Start Date End Date Edie Ellis MD [address] [place] [address] PCP - General 10/15/10 documented as of this encounter
--- OUTSIDE RECORDS SUMMARY | 2024-06-03 00:24 | XMS_ITS | Encounter Summary ---
[place] [address] Care Team Providers Care Lap Hand Tool Name Role Phone Edie Ellis MD Primary Care Provider [phone] Encounter Details Date Type Department Care Team (Latest Contact Info) Description 03/23/2023 Travel Social History Tobacco Use Types Packs/Day [...] AM EDT Hospital Encounter Non-[place] [phone] Arrived documented as of this encounter Visit Diagnoses Not on filedocumented in this encounter Care Teams Lap Hand Tool Relationship Specialty Start Date End Date Edie Ellis MD [address] [place] [address] PCP - General 10/15/10 documented as of this encounter
--- OUTSIDE RECORDS SUMMARY | 2024-06-03 00:24 | XMS_ITS | Encounter Summary ---
Author Organization [facility] Address [facility] [place] [address] Care Team Providers Care Desulfurizer Operator Name Role Phone Edie Ellis MD Primary Care Provider [phone] Encounter Details Date Type Department Care Team (Late st Contact Info) Description 04/30/2023 Orders Only Cardiology at [address] [phone] Kina Awad PA [facility] [place] [address] HFrEF (heart failure with reduced ejection fraction) [...] AM EDT Hospital Encounter Non-Invasive [place] [phone] Arrived documented as of this encounter Visit Diagnoses Diagnosis HFrEF (heart failure with reduced ejection fraction) documented in this encounter Care Teams Desulfurizer Operator Relationship Specialty Start Date End Date Edie Ellis MD [address] [facility] [address] [place] [address] PCP - General 10/15/10 documented as of this encounter
--- OUTSIDE RECORDS SUMMARY | 2024-06-03 00:24 | XMS_ITS | Encounter Summary ---
Author Organization Formerly [facility] Address [facility] [place] [address] Care Team Providers Care Nursery Supervisor Name Role Phone Edie Ellis MD Primary Care Provider [phone] Encounter Details Date Type Department Care Team (Late st Contact Info) Description 07/07/2022 1:00 PM EDT - 07/07/2022 2:05 PM EDT Surgery [place] [address] Denisse Pelaez MD [facility] [place] [address] (MSURG) MUSCLE BIOPSY, DEEP Social History Tobacco Use Types Packs/Day Years [...] call Dr. Pelaez at our office at [phone] 8am-5pm (weekdays) or after hours call and ask to have the bronzer for Neurology paged. These instructions have been [...] a day 03/12/2015 naloxone (Narcan) 4 mg/actuation [place], Non-Aerosol Once 03/10/2019 magnesium oxide (MAG-OX) 400 [...] Pelaez MD - 07/07/2022 1:06 PM EDT [facility] [place] Patient Name: Jammie Gottlieb : [id number] MR#: [id number] Case Date: 07/07/2022 Surgeon: Surgeon(s) and Role: [...] AM EDT Hospital Encounter [place] [address] Arrived documented as of this encounter Procedures [...] PM EDT 07/07/2022 1:06 PM EDT Narrative [facility] - 07/07/2022 1:06 PM EDT Specimen requisition ordered. ??Separate Pathology report to follow Denisse Pelaez MD PATHOLOGY/CYTOLOGY O RDERABLES [facility] [place] [address] * Surgical Pathology Report (07/07/2022 12:35 PM EDT) Surgical Pathology Report [id number] ? Location: OR; ORMN; A The signing pathologist has (i) examined the relevant preparation(s) for the specimen(s) and (ii) rendered or confirmed the diagnosis(es). . ?Surgical Pathology DIAGNOSIS A- Left vastus lateralis, biopsy: Skeletal muscle with mild, nonspecific changes (see comment). Comment: This muscle biopsy fails to reveal any alterations that would suggest a myopathic process. Electronically signed by: ?Jarad Dove MD Verified: ??07/18/2022 16:14 ??Pathologist Performed at: ??-[facility] Dept. [place], [place], [place] SYNOPTIC none DISCUSSION Paraffin-embedded fragments of [...] a few detached adipose tissue fragments. Sections/Processing: Environmental Services Associate sections in 2 cassettes as follows: ?A1: ??Frozen in OCT for histochemistry. ?A2: ??Fixed in formalin for light microscopy. 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 PRN Medication Order 07/05/2022 07/06/2022 07/07/2022 lidocaine-EPINEPHrine (1% - 1:100,000) injection (CANCELED) ONCE PRN, Starting on Thu07/07/22 at 1307, Until Thu07/07/22 at 1511, Intra-Operative (Intra-Procedure), Routine 1307 (Given - Provid er: Denisse Pelaez MD) documented in this encounter Care Teams Nursery Supervisor Relationship Specialty Start Date End Date Edie Ellis MD [facility] [address] [facility] [address] [place] [address] PCP - General 10/15/10 documented as of this encounter
--- OUTSIDE RECORDS SUMMARY | 2024-06-03 00:24 | XMS_ITS | Encounter Summary ---
[place] [address] Care Team Providers Care Trolley Car Mechanic Name Role Phone Edie Ellis MD Primary Care Provider [phone] Reason for Visit * Reason Onset Date Comments Follow-up 05/12/2023 Entresto start s /p bmp results Encounter Details Date Type Department Care Team (Late st Contact Info) Description 05/12/2023 Telephone Cardiology at [address] [phone] Angélica Polo, RN Follow-up (Entresto start s/p bmp results) Social History Tobacco Use Types Packs/Day Years [...] Miscellaneous Notes * Telephone Encounter - Angélica Polo, RN - 05/15/2023 12:21 PM EDT Pt contacted with the following response from ANNE Awad: Lets try 1.5 tabs bid of the Entresto 24-26 mg tabs. No need to update BMP just BPs. If tolerating, could go to 49-51 bid. Can you let her know that I have discussed her case with Dr Newton. No additional recommendations for adjusting medication until we have a stable dose of Entresto. I will message the scheduling team to have her see Dr Newton in about 3 months. Pt agreeable to the above.She will send BP reading next week via myD-H. Pt to call the HF team sooner with any questions/concerns. * Telephone Encounter - Angélica Polo RN - 05/12/2023 1:08 PM EDT Pt returning this gag writer's call to report that she is doing well. BMP results received from [facility], scanned and entered into eD-H. Results WNL. Pt reports the following home BP readings: 105/83, 111/84, 124/88, 109/84, 124/85 & 110/87. Confirms that she has stopped the losartan, as instructed. Is currently taking Entresto 24-26 mg po BID. Denies any s/s of low BP and is feeling good. Message forwarded to ANNE Awad for next steps. documented in this encounter Plan of Treatment Upcoming Encounters Date Type Department Care Team (Late st Contact Info) Description 07/09/2024 10:00 AM EDT Hospital Encounter Non-[place]vasive [place] [address] Arrived documented as of this encounter Visit Diagnoses Not on filedocumented in this encounter Care Teams Trolley Car Mechanic Relationship Specialty Start Date End Date Edie Ellis MD [address] [place] [address] PCP - General 10/15/10 documented as of this encounter
--- OUTSIDE RECORDS SUMMARY | 2024-06-03 00:24 | XMS_ITS | Encounter Summary ---
Author Organization [facility] [place] [address] Care Team Providers Care Inspector Machined Parts Name Role Phone Edie Ellis MD Primary Care Provider [phone] Encounter Details Date Type Department Care Team (Latest Contact Info) Description 01/02/2022 10:30 AM EST Laboratory Appointment Lab [address] [place] [phone] HFrEF (heart failure with reduced ejection fraction) [...] AM EDT Hospital Encounter Non-[place] [phone] Arrived documented as of this encounter Procedures Procedure Name Priority Date/Time Associated Diagnosis Comments HC PROBNP Routine 01/02/2022 10:43 AM EST HFrEF (heart failure with reduced ejection fraction) HC VENIPUNCTURE Routine 01/02/2022 10:43 AM EST HFrEF (heart failure with reduced ejection fraction) BASIC METABOLIC PANEL (NON-FASTING) Routine 01/02/2022 10:43 AM EST HFrEF (heart failure with reduced ejection fraction) documented in this encounter Results * (ABNORMAL) Basic Metabolic Panel (non-fasting) (01/02/2022 10:43 AM EST) Glucose Lvl 209(H) 65 - 199 mg/dL [facility] Comment:Diabetes: >=200 mg/d L plus symptoms BUN 10 8 - 18 mg/dL [facility] Creatinine 0.64(L) 0.70 - 1.20 mg/dL [facility] Sodium 137 135 - 145 mmol/L [facility] Potassium 4.4 3.5 - 5.0 mmol/L [facility] Comment: Please note: ??Patients with WBC >100,000 may have falsely elevated Potassium levels. ??For accurate Potassium quantification in these patients send serum separator tube (gold top) for subsequent determinations. ??Contact the Clinical Chemistry Laboratory if there are any questions. Chloride 101 98 - 107 mmol/L [facility] CO2 23 22 - 31 mmol/L [facility] Anion Gap 13 5 - 15 mmol/L [facility] Calcium 8.7 8.5 - 10.5 mg/dL [facility] Estimated GFR 107 >=60 mL/min/1. 73 m?? [facility] Comment: This patient? s estimated glomerular filtration rate (eGFR) is between 107 mL/min/1.73 m2 (patients with less muscle mass) and 124 mL/min/1.73 m2 (patients with more muscle mass) as determined by the CKD-EPI equation. Assessment of eGFR is not appropriate when creatinine concentrations are rapidly changing. For clinical decisions where creatinine clearance will affect therapy, a 24-hour urine creatinine clearance may be advised. Assignment of CKD stage 1 - 5 for patients with an eGFR near the transition point between stages may be based on clinical assessment of muscle mass and symptoms in addition to eGFR. Blood 01/02/2022 10:4 3 AM EST 01/02/2022 10:52 AM EST Narrative Resulting Agency Comment Spec In Lab Alla Richardson MD CHEMISTRY OR DERABLES Performing Organization Address [facility]/ZIP Co de Phone Number [facility] [place] [address] * (ABNORMAL) pro-Brain Natriuretic Peptide (01/02/2022 10:43 AM EST) ProBNP 140(H) <=124 pg/mL [facility] Blood 01/02/2022 10:4 3 AM EST 01/02/2022 10:52 AM EST Narrative Resulting Agency Comment Spec In Lab Alla Rihcardson MD CHEMISTRY OR DERABLES Performing Organization Address [facility] Co de Phone Number [facility] [place] [address] * CK (01/02/2022 10:43 AM EST) CK, Total 32 0 - 160 unit/L [facility] Blood 01/02/2022 10:4 3 AM EST 01/02/2022 10:52 AM EST Narrative Resulting Agency Comment Spec In Lab Alla Richardson MD CHEMISTRY OR DERABLES Performing Organization Address [facility] Co de Phone Number [facility] [place] [address] documented in this encounter Visit Diagnoses Diagnosis HFrEF (heart failure with reduced ejection fraction) documented in this encounter Care Teams Inspector Machined Parts Relationship Specialty Start Date End Date Edie Ellis MD [address] [place] [address] PCP - General 10/15/10 documented as of this encounter
--- OUTSIDE RECORDS SUMMARY | 2024-06-03 00:24 | XMS_ITS | Encounter Summary ---
[place] [address] Care Team Providers Care Institute Scientist Name Role Phone Edie Ellis MD Primary Care Provider [phone] Reason for Visit * Reason Onset Date Comments Follow-up 04/30/2023 Entresto start Encounter Details Date Type Department Care Team (Late st Contact Info) Description 04/30/2023 Telephone Cardiology at [address] [phone] Angélica Polo, RN Follow-up (Entresto start/) Social History Tobacco Use Types Packs/Day Years [...] Telephone Encounter - Angélica Polo RN - 04/30/2023 2:31 PM EDT Pt returning this sba underwriter's call. She is feeling well. Home BP readings are mostly good. Lowest 99/77, up to 123/87. Denies any swelling in legs or abd. Weights are steadily going done. She will get BMP at [facility], will call to make an appointment for early next week. Confirmed that she stopped the Losartan the day before she started the Entresto 24-26 mg bid. Pt to call when she has gotten the lab test done. * Telephone Encounter - Angélica Polo RN - 04/30/2023 11:17 AM EDT Call placed to pt to see if she has gotten the Entresto, stopped the Losartan and has gotten BMP (if she has started the Entresto). No answer. Message left for her to call the sba underwriter with an update. Call placed to [facility] abreu, pt has gotten the Entresto she has $0 co-pay. Pharmacist directed to stop the Losartan refill they have on file, pt will not be taking both meds. Awaiting a call back. * Telephone Encounter - Angélica Polo RN - 04/30/2023 11:16 AM EDT ----- Message from ANNE Gant sent at 04/10/2023 2:57 PM EDT ----- Hi - New Entresto start. In place of losartan. Thank you! documented in this encounter Plan of Treatment Upcoming Encounters Date Type Department Care Team (Late st Contact Info) Description 07/09/2024 10:00 AM EDT Hospital Encounter Non-Invasive [place] [address] Arrived documented as of this encounter Visit Diagnoses Not on filedocumented in this encounter Care Teams Institute Scientist Relationship Specialty Start Date End Date Edie Ellis MD [facility] [address] [place] [address] PCP - General 10/15/10 documented as of this encounter
--- OUTSIDE RECORDS SUMMARY | 2024-06-03 00:24 | XMS_ITS | Encounter Summary ---
Author Organization [facility] [place] [address] Care Team Providers Care Assembler Truck Trailer Name Role Phone Edie Ellis MD Primary Care Provider [phone] Encounter Details Date Type Department Care Team (Late st Contact Info) Description 03/19/2023 Orders Only Cardiology at [address] [phone] Kina Awad PA [facility] [place] [address] Social History Tobacco Use Types Packs/Day Years [...] AM EDT Hospital Encounter Non-[place] [phone] Arrived documented as of this encounter Visit Diagnoses Not on filedocumented in this encounter Care Teams Assembler Truck Trailer Relationship Specialty Start Date End Date Edie Ellis MD [address] [place] [address] PCP - General 10/15/10 documented as of this encounter
--- OUTSIDE RECORDS SUMMARY | 2024-06-03 00:24 | XMS_ITS | Encounter Summary ---
[place] [address] Care Team Providers Care Underground Production Foreperson Name Role Phone Edie Ellis MD Primary Care Provider Encounter Details Date Type Department Care Team (Latest Contact Info) Description 01/02/2022 10:48 AM EST - 01/02/2022 11:59 PM EST Hospital [place] [address] Pulmonary hypertension Discharge Disposition: Home Social History Tobacco Use [...] day 03/12/2015 naloxone (Narcan) 4 mg/actuation [facility], Non-Aerosol Once 03/10/2019 magnesium oxide (MAG-OX) 400 [...] AM EDT Hospital Encounter Non-Invasive [place] [address] Arrived documented as of this encounter Procedures Procedure Name Priority Date/Time Associated Diagnosis Comments COMMON PULMONARY FUNCTION TEST Routine 01/02/2022 10:57 AM EST Pulmonary hypertension documented in this encounter Results * Pulmonary Function Testing (01/02/2022 10:57 AM EST) FVC Actual Pre-BD 2.91 L COMPAS PFT FVC Pre-BD % of Predicted 82 % COMPAS PFT FVC Predicted 3.55 L COMPAS PFT FVC Pre-BD Z-Score -1.40 COMPAS PFT FVC Lower Limits of Normal 2.80 L COMPAS PFT FEV1 Actual Pre-BD 2.45 L COMPAS PFT FEV1 Pre-BD % of Predicted 86 % COMPAS PFT FEV1 Predicted 2.86 L COMPAS PFT FEV1 Pre-BD Z-Score -1.11 COMPAS PFT FEV1 Lower Limits of Normal 2.25 L COMPAS PFT FEV1 / FVC Actual Pre-BD 84 % COMPAS PFT FEV1/FVC Pre-BD Z-Score 0.51 COMPAS PFT FEV1 / FVC LLN 70 % COMPAS PFT SYS90-78 Actual Pre-BD 3.54 L/s COMPAS PFT RDC27-09 Pre-BD % of Predicted 122 % COMPAS PFT PAM53-95 Predicted 2.90 L/s COMPAS PFT MID25-92 Pre-BD Z-Score 0.73 COMPAS PFT DLCO Hb Actual Pre-BD 18.12 mL/min/mmHg COMPAS PFT DLCO Hb Pre-BD % of Predicted 85 % COMPAS PFT DLCO Hb Pre-BD Z-Score -1.05 COMPAS PFT DLCO Hb Predicted 21.43 mL/min/mmHg COMPAS PFT DLCO UNC ACT PRE-BD 18.12 mL/min/mmHg COMPAS PFT DLCO UNC PRE-BD % of PRED 85 % COMPAS PFT DLCO [facility]C PRE-BD Z-SCORE -1.05 % COMPAS PFT DLCO UNC Predicted 21.43 mL/min/mmHg COMPAS PFT DLCO/VA Actual Pre-BD 4.94 mL/min/mmHg /L COMPAS PFT DLCO/VA Pre-BD % of Predicted 113 % COMPAS PFT DLCO/VA Pre-BD Z-Score 0.85 COMPAS PFT DLCO/VA Predicted 4.39 mL/min/mmHg /L COMPAS PFT Narrative COMPAS PFT - 01/02/2022 10:57 AM EST FINDINGS: FEV1, FVC, and FEV1/VC are within normal limits. Diffusion capacity is normal. IMPRESSION: Normal spirometry. No diffusion impairment. Normal resting oximetry. Procedure Note Akil Carroll MD - 01/03/2022 FINDINGS: FEV1, FVC, and FEV1/VC are within normal limits. Diffusioncapacity is normal. IMPRESSION: Normal spirometry. No diffusion impairment. Normal restingoximetry. Alla Richardson MD PFT ORDERABL ES COMPAS PFT documented in this encounter Visit Diagnoses Diagnosis Pulmonary hypertension Other chronic pulmonary heart diseases documented in this encounter Care Teams Underground Production Foreperson Relationship Specialty Start Date End Date Edie Ellis MD [address] [place] [address] PCP - General 10/15/10 documented as of this encounter
--- OUTSIDE RECORDS SUMMARY | 2024-06-03 00:24 | XMS_ITS | Encounter Summary ---
[place] [address] Care Team Providers Care Cloth Desizing Range Operator Chief Name Role Phone Edie Ellis MD Primary Care Provider [phone] Reason for Visit * Reason Onset Date Comments Questions 03/04/2023 Pre-op clearance Encounter Details Date Type Department Care Team (Late st Contact Info) Description 03/04/2023 Telephone Cardiology at [address] [phone] Angélica Polo, RN Questions (Pre-op clearance) Social History Tobacco Use Types Packs/Day Years [...] Telephone Encounter - Angélica Polo RN - 03/04/2023 11:47 AM EDT Pt contacted to see what we can do to help her. Pt states she is going to have rt shoulder surgery but ortho needs pre-op clearance from cardiologyprior. Pt is aware that she is past due for f/u with the HF team, will need a F2F visit with labs for the evaluation. She wanted ANNE Awad to know that her PCP ordered a cardiac event monitor d/t her having intermittent palpitations and an occasional episode of chest pain. Was told not significant events noted. Results are in eD-H. Pt scheduled to see ANNE Awad on 03/12/23. * Telephone Encounter - Angélica Polo RN - 03/04/2023 11:46 AM EDT ----- Message from Annette Abraham sent at 03/03/2023 11:26 AM EDT ----- Regarding: Having Heart Palpatations Jammie Lindsay called and tried to leave you a VM, not sure if it went thru. What she wanted was to talk to a nurse about recent issues she is having with her Heart.. Also she wanted me to book her for an Echo and labs and FUV with Kina, I told her there was no order in her chart for the echo.. She was a cancel from last Sep 2022. Annette documented in this encounter Plan of Treatment Upcoming Encounters Date Type Department Care Team (Late st Contact Info) Description 07/09/2024 10:00 AM EDT Hospital Encounter Non-Invasive [place] [address] Arrived documented as of this encounter Visit Diagnoses Not on filedocumented in this encounter Care Teams Cloth Desizing Range Operator Chief Relationship Specialty Start Date End Date Edie Ellis MD [address] [place] [address] PCP - General 10/15/10 documented as of this encounter
--- OUTSIDE RECORDS SUMMARY | 2024-06-03 00:24 | XMS_ITS | Encounter Summary ---
[place] [address] Care Team Providers Care Health Facilities Surveyor Name Role Phone Edie Ellis MD Primary Care Provider Encounter Details Date Type Department Care Team (Latest Contact Info) Description 06/30/2023 Travel Social History Tobacco Use Types Packs/Day [...] AM EDT Hospital Encounter Non-[place] [phone] Arrived documented as of this encounter Visit Diagnoses Not on filedocumented in this encounter Care Teams Health Facilities Surveyor Relationship Specialty Start Date End Date Edie Ellis MD [address] [place] [address] PCP - General 10/15/10 documented as of this encounter
--- OUTSIDE RECORDS SUMMARY | 2024-06-03 00:24 | XMS_ITS | Encounter Summary ---
Author Organization [facility] Address [facility]enna [facility] [place] [address] Care Team Providers Care Rug Measurer Name Role Phone Edie Ellis MD Primary Care Provider [phone] Reason for Visit * Diagnostic Test (Routine) - Closed Specialty Diagnoses / Procedures Referred By Geraldine olmedo Referred To Contact Diagnoses HFrEF (heart failure with reduced ejection fraction) Other chest pain Procedures Echocardiogram Transthoracic Echocardiogram Stress (Treadmill) Kina Choi PA [facility] [place] [address] [facility] [place] [address] Referral ID Status Reason Start Date Expiration Date V isits Requested Visits Authorized [id number] Closed Specialty Service Requested 03/12/2023 03/11/2024 1 1 Encounter Details Date Type Department Care Team (Latest Contact Info) Description 03/23/2023 9:00 AM EDT - 03/23/2023 11:59 PM EDT Hospital Encounter Non[place] [address] Loyda Mendoza MD [facility] [place] [address] HFrEF (heart failure with reduced ejection fraction); Other chest pain Discharge Disposition: Home Social History Tobacco Use [...] Sig Dispensed Refills Start Date End Date icosapent ethyL (Vascepa) 1 gram capsule Take [...] a day 03/12/2015 naloxone (Narcan) 4 mg/actuation [place], Non-Aerosol Once 03/10/2019 magnesium oxide (MAG-OX) 400 [...] AM EDT Hospital Encounter [place] [address] Arrived documented as of this encounter Procedures Procedure Name Priority Date/Time Associated Diagnosis Comments ECHO COMPLETE W CONTRAST Routine 03/23/2023 10:09 AM EDT HFrEF (heart failure with reduced ejection fraction) Other chest pain documented in this encounter Results * ECHO COMPLETE W CONTRAST (03/23/2023 10:09 AM EDT) EF 42 [employer] SYSTEM Anatomical Region Laterality Modality Cardiac Other 03/23/2023 9:28 AM EDT Narrative 03/23/2023 10:21 AM EDT ? Echocardiogram Report Name: RAMY GOTTLIEB Sherice ?Study Date: 03/23/2023 09:28 AM ? Patient Location: 4A : 1975 ? Height: 163 cm ? Account: [id number] Age: 47 yrs ? Weight: 99 kg Gender: Female ?BSA: 2.0 m2 Ordering Physician: LOYDA MENDOZA Referring Physician: KINA CHOI Performed By: Kate Arellano RDCS Reason For Study: HFrEF (heart failure with reduced ejection fraction), Other chest pain Exam Location: [facility]. Interpretation Summary LV mild global hypokinesis. The left ventricular ejection fraction is 42% by Mobley's biplane. Right ventricular function is probably normal. No significant valvular disease noted on this study. Compared with the prior TTE of 01/02/2022, LV systolic function has declined (prior EF 52%). Of note, the patient was tachycardiac at baseline (HR 105 bpm). Stress testing was canceled. Procedure Complete-[id number]. Image enhancement Optison was used for left ventricular opacification. Suboptimal quality. Left Ventricle Left ventricle is of normal size. Wall thickness is normal. There is no left ventricular outflow tract obstruction. Left ventricular systolic function is mildly reduced. The left ventricular ejection fraction is 42% by Mobley's biplane. Mild global hypokinesis. Right Ventricle The right ventricle is of normal size. Right ventricular function is probably normal. Left Atrium The left atrium is normal. No abnormality of the interatrial septum is identified. Right Atrium The right atrium is normal. Aortic Valve The aortic valve is not well visualized. The aortic valve is probably trileaflet. The aortic valve is mildly thickened. There is no aortic stenosis. There is no aortic regurgitation. Mitral Valve The mitral valve leaflets are thickened. There is no mitral stenosis. There is trace mitral regurgitation. Tricuspid Valve The tricuspid valve is structurally normal. There is trace tricuspid regurgitation. Pulmonic Valve The pulmonic valve is not well visualized. Great Arteries The aortic root is of normal size. No abnormalities are identified. Ascending aorta is normal in size. The pulmonary artery is not well visualized. Venous Inferior vena cava is normal in size. Inferior vena cava collapse greater than 50% with respiration. Pericardium/Pleural There is no pericardial effusion. Hemodynamics Pulmonary artery hypertension could not be assessed due to inadequate tricuspid regurgitation jet. The estimated right atrial pressure is 3mmHg. Left ventricular diastolic function is indeterminate. Left ventricular filling pressure is normal. Ejection Fraction ?2D Measurements ? Volumes EF(MOD-bp): 41.7 % ?IVSd: 1.0 cm ? LAV(MOD- bp) Indexed: ?LVIDd: 4.3 cm ?LVIDs: 3.3 cm ?15.1 ml/m2 ?LVPWd: 1.1 cm ?RA A4Cs_phl: 8.8 cm2 ? EDV (MOD-bp) Index: 55.8 ?LV mass(C)d: 157.4 grams ? ESV (MOD-bp) Index: 32.6 ?LV mass(C)dI: 77.6 grams/m2 ?SV(LVOT): 55.3 ml ?Ao root diam: 2.8 cm ?Ao root diam index: 1.4 ?SI(LVOT): 27.3 ml/m2 ?asc Aorta Diam: 3.1 cm ?LVOT diam: 2.0 cm ?TAPSE_phl: 1.6 cm Doppler LV V1 VTI: 18.3 cm Ao V2 VTI: 17.4 cm Ao Max: 120.8 cm/sec Ao valve max: 5.8 mmHg Ao valve mean: 3.3 mmHg MV E max jorge a: 46.9 cm/sec MV A max jorge a: 98.1 cm/sec MV E/A: 0.48 MV dec time: 0.07 sec Lat Peak E' Jorge A: 9.8 cm/sec E/ e' (lat): 4.8 Med Peak E' Jorge A: 6.0 cm/sec E/e' (med): 7.8 E/e' Average: 6.3 WILLIAM(I,D): 3.2 cm2 Dimensionless index Aov: 1.0 I ?WMSI = 2.00 ? % Normal = 0 ?Segments ??Size X - Cannot ?2 - ?4 - ?1-2 ? small Interpret ?1 - Normal ?? Hypokinetic 3 - Akinetic Dyskinetic ?? 3-5 ? moderate 5 - ? 6-14 ?large Aneurysmal ?15-16 ?? diffuse Procedure Note Jaqui Saleh MD - 03/23/2023 Echocardiogram Report Name: RAMY GOTTLIEB Study Date: 309:28 AM Patient Location: 4A : 1975 Height: 163 cm Account: [id number] Age: 47 yrs Weight: 99 kg Gender: Female BSA: 2.0 m2 Ordering Physician: LOYDA MENDOZA Referring Physician: KINA CHOI Performed By: Kate Arellano RDCS Reason For Study: HFrEF (heart failure with reduced ejection fraction),Other chest pain Exam Location: [facility]. Interpretation Summary LV mild global hypokinesis. The left ventricular ejection fraction is 42%by Mobley's biplane. Right ventricular function is probably normal. No significant valvular disease noted on this study. Compared with the prior TTE of 01/02/2022, LV systolic function hasdeclined (prior EF 52%). Of note, the patient was tachycardiac at baseline (HR 105 bpm). Stresstesting was canceled. Procedure Complete-[id number]. Image enhancement Optison was used for left ventricular opacification. Suboptimal quality. Left Ventricle Left ventricle is of normal size. Wall thickness is normal. There is noleft ventricular outflow tract obstruction. Left ventricular systolic functionis mildly reduced. The left ventricular ejection fraction is 42% bySimpson's biplane. Mild global hypokinesis. Right Ventricle The right ventricle is of normal size. Right ventricular function isprobably normal. Left Atrium The left atrium is normal. No abnormality of the interatrial septum isidentified. Right Atrium The right atrium is normal. Aortic Valve The aortic valve is not well visualized. The aortic valve is probablytrileaflet. The aortic valve is mildly thickened. There is no aortic stenosis. Thereis no aortic regurgitation. Mitral Valve The mitral valve leaflets are thickened. There is no mitral stenosis.There is trace mitral regurgitation. Tricuspid Valve The tricuspid valve is structurally normal. There is trace tricuspid regurgitation. Pulmonic Valve The pulmonic valve is not well visualized. Great Arteries The aortic root is of normal size. No abnormalities are identified.Ascending aorta is normal in size. The pulmonary artery is not well visualized. Venous Inferior vena cava is normal in size. Inferior vena cava collapse greaterthan 50% with respiration. Pericardium/Pleural There is no pericardial effusion. Hemodynamics Pulmonary artery hypertension could not be assessed due to inadequatetricuspid regurgitation jet. The estimated right atrial pressure is 3mmHg. Leftventricular diastolic function is indeterminate. Left ventricular filling pressure isnormal. Ejection Fraction 2D Measurements Volumes EF(MOD-bp): 41.7 % IVSd: 1.0 cm LAV(MOD-bp)Indexed: LVIDd: 4.3 cm LVIDs: 3.3 cm 15.1 ml/m2 LVPWd: 1.1 cm RA A4Cs_phl: 8.8cm2 EDV (MOD-bp)Index: 55.8 LV mass(C)d: 157.4 grams ESV (MOD-bp)Index: 32.6 LV mass(C)dI: 77.6 grams/m2 SV(LVOT): 55.3ml Ao root diam: 2.8 cm Ao root diam index: 1.4 SI(LVOT): 27.3ml/m2 asc Aorta Diam: 3.1 cm LVOT diam: 2.0 cm TAPSE_phl: 1.6 cm Doppler LV V1 VTI: 18.3 cm Ao V2 VTI: 17.4 cm Ao Max: 120.8 cm/sec Ao valve max: 5.8 mmHg Ao valve mean: 3.3 mmHg MV E max jorge a: 46.9 cm/sec MV A max jorge a: 98.1 cm/sec MV E/A: 0.48 MV dec time: 0.07 sec Lat Peak E' Jorge A: 9.8 cm/sec E/ e' (lat): 4.8 Med Peak E' Jorge A: 6.0 cm/sec E/e' (med): 7.8 E/e' Average: 6.3 WILLIAM(I,D): 3.2 cm2 Dimensionless index Aov: 1.0 I WMSI = 2.00 % Normal = 0 SegmentsSize X - Cannot 2 - 4 - 1-2small Interpret 1 - Normal Hypokinetic 3 - Akinetic Dyskinetic 3-5moderate 5 - 6-14large Aneurysmal 15-16diffuse Loyda Mendoza MD ECHO ORDERABLES documented in this encounter Visit Diagnoses Diagnosis HFrEF (heart failure with reduced ejection fraction) Other chest pain documented in this encounter Administered Medications Inactive Administered Medications - up to 3 most recent administrations Medication Order MAR Action Action Date Dose Rate Site perflutren protein-A microsphers (Optison) (0.22 mg/mL) injection 3 mL 3 mL, Intravenous, ONCE PRN, 1 dose, Starting on Thu03/23/23 at 1009, Until Thu03/23/23 at 0940, for enhancement of sub-optimal echo images, Echo Lab (Intra-Procedure), Routine Given 03/23/2023 9:40 AM EDT 3 mLs documented in this encounter Care Teams Rug Measurer Relationship Specialty Start Date End Date Edie Ellis MD [address] [place] [address] PCP - General 10/15/10 documented as of this encounter
--- OUTSIDE RECORDS SUMMARY | 2024-06-03 00:24 | XMS_ITS | Encounter Summary ---
Author Organization [facility] [place] [address] Care Team Providers Care Hardness Tester Name Role Phone Edie Ellis MD Primary Care Provider [phone] Encounter Details Date Type Department Care Team (Latest Contact Info) Description 03/12/2023 8:00 AM EDT Laboratory Appointment Lab [address] [place] [phone] HFrEF (heart failure with reduced ejection fraction) [...] AM EDT Hospital Encounter Non-[place] [phone] Arrived documented as of this encounter Procedures Procedure Name Priority Date/Time Associated Diagnosis Comments HC VENIPUNCTURE Routine 03/12/2023 8:10 AM EDT HFrEF (heart failure with reduced ejection fraction) LDL CHOLESTEROL, DIRECT Routine 03/12/2023 8:10 AM EDT LIPID PANEL (REFLEX DIRECT LDL) Routine 03/12/2023 8:10 AM EDT HFrEF (heart failure with reduced ejection fraction) COMPREHENSIVE METABOLIC PANEL (NON-FASTING) Routine 03/12/2023 8:10 AM EDT HFrEF (heart failure with reduced ejection fraction) documented in this encounter Results * LDL Cholesterol, Direct (03/12/2023 8:10 AM EDT) LDL Chol Direct 37 mg/dL [facility] Comment: Lowest Risk: <100 mg/dL Lower Risk: 100-129 mg/dL Borderline High Risk: 130-159 mg/dL High Risk: 160-189 mg/dL Very High Risk: >zm=920 mg/dL Blood 03/12/2023 8:10 AM EDT 03/12/2023 8:26 AM EDT Narrative Resulting Agency Comment Spec In Lab Kina RODRÍGUEZ CHEMISTRY ORDERABLES [facility] [place] [address] * Lipid Panel (Reflex Direct LDL) (03/12/2023 8:10 AM EDT) Chol, Total 124 mg/dL [facility] Comment: Lower Risk: <200 mg/dL Average Risk: 200-239 mg/dL Higher Risk: >nn=223 mg/dL Triglycerides 609 mg/dL [facility] Comment: Average Risk/Lower Risk: <150 mg/dL Borderline High Risk: 150-199 mg/dL High Risk: 200-499 mg/dL Very High Risk: >gk=374 mg/dL HDL 27 mg/dL [facility] Comment: Males: ?? Higher Risk: <40 mg/dL Females: ?? Higher Risk: <50 mg/dL LDL Cholesterol Not Calculated [facility] Comment: Calculated LDL value is not valid for triglycerides greater than 400 mg/dl. Lowest Risk: <100 mg/dL Lower Risk: 100-129 mg/dL Borderline High Risk: 130-159 mg/dL High Risk: 160-189 mg/dL Very High Risk: >yo=683 mg/dL Chol/HDL Ratio 4.6 ratio [facility] Lipid Interpretation See Note [facility] Comment: Lipid management should be guided by a patient? s ASCVD risk, goals and preferences. ACC/AHA Guidelines recommend high intensity statin if clinical ASCVD or LDL greater than or equal to 190 mg/dL. http://[employer]com/JKS-PTN-Jpnutvbzj Adults aged 40-75 with LDL 70-189 mg/dL should have their 10 year ASCVD risk estimated with the ACC/AHA ASCVD risk shopper http://tools.acc.org/OMCPF-Vjkz-Tlhcjomxc/ Statin should be discussed if risk greater than or equal to 7.5% in non-diabetics. With diabetes, moderate intensity statin is recommended if risk less than 7.5%, high intensity if risk greater than or equal to 7.5%. Annual lipid monitoring on statins is not necessary. Evaluate secondary causes of Triglycerides greater than 500 mg/dL or LDL greater than 190 mg/dL: See table 6 of ACC/AHA Guideline. Lifestyle modification is a critical component of ASCVD risk reduction. Blood 03/12/2023 8:10 AM EDT 03/12/2023 8:19 AM EDT Narrative Resulting Agency Comment Spec In Lab Loyda Barrios MD CHEMISTRY ORDERABL ES [facility] [place] [address] * (ABNORMAL) Comprehensive metabolic panel (non-fasting) (03/12/2023 8:10 AM EDT) Glucose Lvl 193 65 - 199 mg/dL [facility] Comment:Diabetes: >=200 mg/d L plus symptoms BUN 10 8 - 18 mg/dL [facility] Creatinine 0.53(L) 0.70 - 1.20 mg/dL [facility] Sodium 137 135 - 145 mmol/L [facility] Potassium 3.9 3.5 - 5.0 mmol/L [facility] Comment: Please note: ??Patients with WBC >100,000 may have falsely elevated Potassium levels. ??For accurate Potassium quantification in these patients send serum separator tube (gold top) for subsequent determinations. ??Contact the Clinical Chemistry Laboratory if there are any questions. Chloride 99 98 - 107 mmol/L [facility] CO2 26 22 - 31 mmol/L [facility] Anion Gap 12 5 - 15 mmol/L [facility] Calcium 9.2 8.5 - 10.5 mg/dL [facility] Total Protein 6.7 6.1 - 8.0 g/dL [facility] Albumin 4.0 3.2 - 5.2 g/dL [facility] AST 22 0 - 30 unit/L [facility] ALT 16 0 - 30 unit/L [facility] Alk Phos 59 35 - 105 unit/L [facility] Total Bilirubin 0.4 0.2 - 1.3 mg/dL [facility] Estimated GFR 115 >=60 mL/min/1. 73 m?? [facility] Comment: This patient's estimated GFR [...] and symptoms in addition to eGFR. Blood 03/12/2023 8:10 AM EDT 03/12/2023 8:19 AM EDT Narrative Resulting Agency Comment Spec In Lab Loyda Barrios MD CHEMISTRY ORDERABL ES Performing Organization Address City/[facility]/ZIP Co de Phone Number [facility] [place] [address] * pro-Brain Natriuretic Peptide (03/12/2023 8:10 AM EDT) ProBNP 49 <=124 pg/mL [facility] Blood 03/12/2023 8:10 AM EDT 03/12/2023 8:19 AM EDT Narrative Resulting Agency Comment Spec In Lab Loyda Barrios MD CHEMISTRY ORDERABL ES Performing Organization Address [facility] Co de Phone Number [facility] [place] [address] documented in this encounter Visit Diagnoses Diagnosis HFrEF (heart failure with reduced ejection fraction) documented in this encounter Care Teams Hardness Tester Relationship Specialty Start Date End Date Edie Ellis MD [facility] [address] [place] [address] PCP - General 10/15/10 documented as of this encounter
--- OUTSIDE RECORDS SUMMARY | 2024-06-03 00:24 | XMS_ITS | Encounter Summary ---
Author Organization Formerly [facility] [place] [address] Care Team Providers Care Race Board Attendant Name Role Phone Edie Ellis MD Primary Care Provider [phone] Encounter Details Date Type Department Care Team (Late st Contact Info) Description 04/17/2023 Refill Cardiology at [address] [phone] Kina Awad PA [facility] [place] [address] Social History Tobacco Use Types Packs/Day Years [...] AM EDT Hospital Encounter Non-[place] [phone] Arrived documented as of this encounter Visit Diagnoses Not on filedocumented in this encounter Care Teams Race Board Attendant Relationship Specialty Start Date End Date Edie Ellis MD [address] [place] [address] PCP - General 10/15/10 documented as of this encounter
--- OUTSIDE RECORDS SUMMARY | 2024-06-03 00:24 | XMS_ITS | Encounter Summary ---
Author Organization [facility] [place] [address] Care Team Providers Care Autographer Name Role Phone Edie Ellis MD Primary Care Provider [phone] Encounter Details Date Type Department Care Team (Late st Contact Info) Description 06/03/2023 Telephone Cardiology at [address] [phone] Angélica Polo RN Social History Tobacco Use Types Packs/Day [...] Telephone Encounter - Angélica Polo RN - 06/03/2023 5:17 PM EDT Pt contacted with the message form ANNE Awad as written below. She will send BP readings next week after being the increased dose a week. Pt to call sooner with any questions/concerns. New prescription pended to ANNE Awad to go to the [facility]. * Telephone Encounter - Angélica Polo RN - 06/03/2023 5:17 PM EDT ----- Message from ANNE Gant sent at 06/03/2023 8:52 AM EDT ----- Regarding: RE: My blood pressures Contact: I think we should continue to increase the dose. Yes to the 49-51 mg tabs. Thanks. No labs until after the new dose adjustment. AV ----- Message ----- From: Angélica Polo RN Sent: 06/02/2023 8:03 PM EDT To: ANNE Gant Subject: My blood pressures ----- Message from Angélica Polo RN sent at 06/02/2023 8:03 PM EDT ----- Do you want her to go to 49-51 mg bid. Do you want repeat BMP at this dose? If yes will need to send an order to [facility]. Angélica Peace ----- Message from Jammie Gottlieb to Kina Awad PA sent at 05/25/2023 2:02 PM ----- Hi I am Jammie Gottlieb 75 these are my blood pressures from the last week on the new MG of entresto. 109/82 89 108/81 81 113/82 88 115/89 101 104/76 110 108/79 91 98/78 91 108/79 80 110/81 94 121/79/ 110 102/81 89 104/74 91 114/81 91 Thank you Phone number [phone] documented in this encounter Plan of Treatment Upcoming Encounters Date Type Department Care Team (Late st Contact Info) Description 07/09/2024 10:00 AM EDT Hospital Encounter Non-Invasive Cardiology [place] [address] Arrived documented as of this encounter Visit Diagnoses Not on filedocumented in this encounter Care Teams Autographer Relationship Specialty Start Date End Date Edie Ellis MD [address] [place] [address] PCP - General 10/15/10 documented as of this encounter
--- OUTSIDE RECORDS SUMMARY | 2024-06-03 00:24 | XMS_ITS | Encounter Summary ---
[place] [address] Care Team Providers Care Program Engagement Director Name Role Phone Edie Ellis MD Primary Care Provider [phone] Reason for Visit * Reason Onset Date Comments Follow-up 05/08/2023 Entresto start B MP results Encounter Details Date Type Department Care Team ([facility] Contact Info) Description 05/08/2023 Telephone Cardiology at [address] [phone] Angélica Polo, RN Follow-up (Entresto start BMP results) Social History Tobacco Use Types Packs/Day [...] Telephone Encounter - Angélica Polo RN - 05/08/2023 2:46 PM EDT Call placed to the home number listed to see how the pt is tolerating current dose of Entresto and to review the BMP results with her. No answer. Message left asking she call back with the above message. Awaiting a call back. documented in this encounter Plan of Treatment Upcoming Encounters Date Type Department Care Team (Late st Contact Info) Description 07/09/2024 10:00 AM EDT Hospital Encounter Non-[place] [phone] Arrived documented as of this encounter Procedures Procedure Name Priority Date/Time Associated Diagnosis Comments BASIC METABOLIC PANEL (NON-FASTING) Routine 05/04/2023 2:50 PM EDT documented in this encounter Results * (ABNORMAL) Basic Metabolic Panel (non-fasting) (05/04/2023 2:50 PM EDT) Glucose Lvl 178 EXTERNAL LAB BUN 10 EXTERNAL LAB Creatinine 0.8 EXTERNAL LAB Estimated GFR 91.40 EXTERNAL LAB Sodium 136 EXTERNAL LAB Potassium 4.2 EXTERNAL LAB Chloride 99 EXTERNAL LAB CO2 29 EXTERNAL LAB Calcium 9.3 EXTERNAL LAB Anion Gap 8 EXTERNAL LAB Blood 05/04/2023 2:50 PM EDT Historical Provider CHEMISTRY ORDERAB LES EXTERNAL LAB documented in this encounter Visit Diagnoses Not on filedocumented in this encounter Care Teams Program Engagement Director Relationship Specialty Start Date End Date Edie Ellis MD [address] [place] [address] PCP - General 10/15/10 documented as of this encounter
--- OUTSIDE RECORDS SUMMARY | 2024-06-03 00:24 | XMS_ITS | Encounter Summary ---
Author Organization [facility] [place] [address] Care Team Providers Care Stem Threshing Machine Operator Name Role Phone Edie Ellis MD Primary Care Provider [phone] Reason for Visit * Reason Onset Date Comments Prior Authorization 03/18/2023 Tzsyz-3-[id number] Ethyl Esters 1GM capsules Encounter Details Date Type Department Care Team (Late st Contact Info) Description 03/18/2023 Telephone Cardiology at [address] [phone] Rasta Grewal CMA Prior Authorization (Rltjg-[id number] Ethyl Esters 1GM capsules) Social History Tobacco Use Types Packs/Day Years [...] encounter Miscellaneous Notes * Telephone Encounter - Edilia Anderson CMA - 03/18/2023 1:33 PM EDTSummary: Denied Images from the original note were not included. Submitted Date: Submitted Date: 03/18/2023 PA Outcome: PA Denial [place] [address] DENIED: Djuci-6-kkko Ethyl Esters 1GM capsules Case/Reference #: ANNE Additional Information from Insurance: * Telephone Encounter - Rasta Grewal CMA - 03/18/2023 8:22 AM EDT Images from the original note were not included. ANNE Submitted Submitted Date: Submitted Date: 03/18/2023 Medication Prior Authorization Patient: Jammie Gottlieb Patient : 1975 Insurance Company: [employer] Sent via: [employer] Bhakta: [id number] Physician: Kina Awad PA Medication Requested: omega-3 acid ethyl esters (Lovaza) 1 gram capsule Frequency/Sig: Take 2 capsules by mouth 2 times daily. Disp: 120 capsule Refills: 5 Currently taking: no If yes, how long: Diagnosis for this medication: E78.1 Prior medications trialed in this patient: Additional Notes: TGs 609 - recommend prescription fish oil Add fish oil for elevated TGs documented in this encounter Plan of Treatment Upcoming Encounters Date Type Department Care Team (Late st Contact Info) Description 07/09/2024 10:00 AM EDT Hospital Encounter Non-[place] [address] Arrived documented as of this encounter Visit Diagnoses Not on filedocumented in this encounter Care Teams Stem Threshing Machine Operator Relationship Specialty Start Date End Date Edie Ellis MD [address] [place] [address] PCP - General 10/15/10 documented as of this encounter
--- OUTSIDE RECORDS SUMMARY | 2024-06-03 00:24 | XMS_ITS | Encounter Summary ---
Author Organization [facility] Address [facility] [place] [address] Care Team Providers Care Diamond Expert Name Role Phone Edie Ellis MD Primary Care Provider [phone] Encounter Details Date Type Department Care Team (Late st Contact Info) Description 03/12/2023 9:00 AM EDT Office Visit Cardiology at [address] [id number] Kina Awad PA [facility] [place] [address] HFrEF (heart failure with reduced ejection fraction); Community acquired pneumonia, unspecified laterality; Other chest pain Social History Tobacco Use Types Packs/Day Years [...] Sign Reading Time Taken Comments Blood Pressure 129/78 03/12/2023 8:53 AM EDT Pulse 103 03/12/2023 8:53 AM EDT Temperature - - Respiratory Rate 14 03/12/2023 8:53 AM EDT Oxygen Saturation 98% 03/12/2023 8:53 AM EDT Inhaled Oxygen Concentration - - Weight 98.6 kg (217 lb 6.4 oz) 03/12/2023 8:53 A M EDT Height 162.6 cm (5' 4) 03/12/2023 8:53 AM EDT Body Mass Index 37.32 03/12/2023 8:53 AM EDT documented in this encounter Progress Notes * Kina Awad PA - 03/12/2023 9:00 AM EDT Images from the original note were not included. [facility] Section of Advanced Heart Failure Cardiology [facility] [place] [id number] OUTPATIENT VISIT DATE: 06/09/21 OUTPATIENT VISIT TYPE: Follow up OV PRIMARY CARE PHYSICIAN: Edie Ellis MD REFERRING PHYSICIAN: None HISTORY OF PRESENT ILLNESS: Jammie Gottlieb is a 47 y.o. female referred by Jeremiah Eid MD for evaluation of nonischemic cardiomyopathy and request for referral for genetic testing. Index presentation in 2012 with mildly dilated LV and EF 40%. LVEF 50-55% on TTE in 2019. 41% by cMR performed in April 2021. Several possible etiologies identified at that time including peripartum where was complicated by HTN and DM and an echocardiogram showed a low normal LVEF months prior to giving and viral syndrome x2 prior to diagnosis as well as reported family h/o CMP in multiple family members on her father's side (no genetic testing completed). Other medical conditions include: HTN, DM, syncope, chronic low back pain s/p lumbar spine surgery,migraines, depression, fatty liver. Last syncopal event Aug 2020, admitted to [facility]. Loss of urine. Placed on Keppra, released with cardiac event monitor, worn for 30 days without significant findings. Tobacco use - 1/2 ppd, started at the age of 40. No alcohol or drug use. Disabled due to chronic back pain. Reports that she is actively trying to quit smoking. She reports being more tired recently. No limiting shortness of breath. Does have SSCP described astightness. Chest tight after 1 flight of stairs. H/o cardiac cath in 2012 showing non-obstructive disease. Long history of palpitations, overall unchanged and notably rare. Recommended R/LHC to further evaluate. Non-obstructive disease seen. See below for report. Genetic counseling completed. 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 She has 3 children,so far 1 daughter tested positive. 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 This used to present as aches and pains and LBP with some joint pain. More recently, c/o muscle weakness. 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 No obvious EMG changes or elevation in CK and had a negative muscle biopsy. Discussed today: Admitted to [facility] in August, transferred to [place]. PNA, required intubation. Since that time, hashad intermittent palpitations. Feels her heart stop and then start with a forceful beat and then describes quickenings. She wore a 2 week event recorder. See chart, no findings. 1-2 times per month. Rate ~100 on average. New CP through to her back, feels like she needs to stretch her sternum but this does not make a difference in intensity. No obvious pattern. No alleviating or exacerbating factors. No significant volume expansion. Markedly improved breathing. Of note, will need shoulder surgery. No date set yet. Patient Active Problem List Diagnosis ??? T2DM ??? Essential hypertension ??? Syncope ??? Post laminectomy syndrome ??? Cardiomyopathy ??? Atrial fibrillation ??? Lumbar radiculopathy OUTPATIENT MEDICATIONS: Current Outpatient Medications Medication Sig Note Dispense Refill ??? topiramate (TOPAMAX) 25 mg sprinkle capsule Take 25 mg by mouth 2 times daily. ??? magnesium oxide (MAG-OX) 400 mg tablet Take 400 mg by mouth 2 times daily. ??? glipiZIDE (GLUCOTROL) 5 mg 24 hr tablet Take 5 mg by mouth daily. ??? metoprolol succinate (TOPROL-XL) 50 mg 24 hr tablet Take 50 mg by mouth daily. ??? Riboflavin (VITAMIN B-2) 25 mg Tab Take 200 mg by mouth 2 times daily. ??? meloxicam (MOBIC) 7.5 mg tablet Take by mouth 2 times daily. ? ? VITAMIN B COMPLEX & VIT C NO.3 (VITAMIN B COMP & C NO.3 ORAL) Take 1 mg by mouth. ??? valACYclovir (VALTREX) 1 g tablet Take 1,000 mg by mouth 2 times daily. ??? aspirin 81 mg EC tablet Take 81 mg by mouth daily. ??? promethazine (PHENERGAN) 25 mg tablet Take 25 mg by mouth every 6 hours as needed. ??? rosuvastatin (CRESTOR) 10 mg tablet Take 10 mg by mouth every evening. ??? spironolactone (ALDACTONE) 25 mg tablet Take 12.5 mg by mouth daily. ??? metoprolol tartrate (LOPRESSOR) 25 mg tablet Take 12.5 mg by mouth daily. 03/30/2014: Taking 100mg daily ??? HYDROmorphone (DILAUDID) 2 mg tablet Take 1 tablet by mouth every 4 hours as needed for Pain. 20 tablet 0 ??? PARoxetine (PAXIL) 20 mg tablet Take 20 mg by mouth every morning. 03/30/2014: Taking 30 mg daily ??? naratriptan (AMERGE) 2.5 mg tablet Take 2.5 mg by mouth as needed. Take one (1) tablet at onsetof headache; if returns or does not resolve, may repeat after 4 hours; do not exceed five (5) mg in24 hours. ??? lisinopril (PRINIVIL;ZESTRIL) 5 mg tablet Take 5 mg by mouth daily. 09/06/2013: 10 mg ??? polyethylene glycol (MIRALAX) 17 gram packet Take 17 g by mouth daily. ??? Lancets Misc by [facility].(Non-Drug; Combo Route) route daily. ??? Miscellaneous Medical Supply [facility] 1 strip by [facility].(Non-Drug; Combo Route) route daily. ??? clonAZEpam (KLONOPIN) 1 mg tablet Take 1 mg by mouth 2 times daily as needed. ??? albuterol (PROVENTIL HFA;VENTOLIN HFA) 90 mcg/Actuation inhaler Inhale 2 puffs into the lungs every 4 hours as needed. Use with spacer ??? omeprazole (PRILOSEC) 20 mg capsule Take 20 mg by mouth daily. ??? ibuprofen (ADVIL;MOTRIN) 600 mg tablet 600 MG = 1 Tablet(s), PO, Q6H FAMILY HISTORY: All diagnosed with CMP per patient Paternal great grandfather Paternal GF - unexpectedly at 62 yo Uncle, 2 aunts (Her father without known CMP but relationship strained) All information obtained through her grandmother No known heart transplants in her family Only SCD in paternal GF 3 children 26 son awaiting results, 21 daughter negative, 11 daughter positive for TTN ALLERGIES: Allergies Allergen Reactions ??? Penicillins Anaphylaxis ??? Sulfa (Sulfonamide Antibiotics) PMHx, Surgical Hx, Social Hx were reviewed and updated REVIEW OF SYSTEMS: See HPI above for pertinent positives and negatives. All other ROS negative by system (including general, HEENT, pulmonary, gastrointestinal, genitourinary, musculoskeletal, endocrine, hematologic, extremity, skin, neurology, and psychiatric) with exceptions below. PHYSICAL EXAMINATION: Vitals: 03/12/23 0853 BP: 129/78 BP Location (NBP): Right arm Patient Position: Sitting Pulse: (!) 103 Resp: 14 SpO2: 98% Weight: 98.6 kg (217 lb 6.4 oz) Height: 162.6 cm (5' 4) GENERAL: Pleasant and in no acute distress HEENT: PERRL, anicteric sclerae, no injection. NECK: Supple with full ROM. No LAD. Trachea midline. JVP visualized and is not elevated. CARDIAC: No abnormal precordial movements. RRR with normal S1 and S2. No murmurs, rub, or gallops noted. PULMONARY: Symmetrical expansion. Clear lungs bilaterally. ABDOMEN: Positive bowel sounds. Soft, NT, ND. EXTREMITY: Warm and well perfused. No edema. No erythema. SKIN: No concerning lesions noted on areas of skin visualized during exam. Tattoos. NEUROLOGICAL: Alert and oriented to person, place, date PSYCH: Mood appropriate. LABS: Latest Reference Range & Units 03/12/23 08:10 Sodium 135 - 145 mmol/L 137 Potassium 3.5 - 5.0 mmol/L 3.9 Chloride 98 - 107 mmol/L 99 CO2 22 - 31 mmol/L 26 Anion Gap 5 - 15 mmol/L 12 BUN 8 - 18 mg/dL 10 Creatinine 0.70 - 1.20 mg/dL 0.53 (L) Estimated GFR >=60 mL/min/1.73 m?? 115 Calcium 8.5 - 10.5 mg/dL 9.2 Glucose Lvl 65 - 199 mg/dL 193 ProBNP <=124 pg/mL 49 Total Protein 6.1 - 8.0 g/dL 6.7 Albumin 3.2 - 5.2 g/dL 4.0 Total Bilirubin 0.2 - 1.3 mg/dL 0.4 Alk Phos 35 - 105 unit/L 59 AST 0 - 30 unit/L 22 ALT 0 - 30 unit/L 16 Chol, Total mg/dL 124 HDL mg/dL 27 Chol/HDL Ratio ratio 4.6 Triglycerides mg/dL 609 LDL Cholesterol Not Calculated LDL Chol Direct mg/dL 37 Lipid Interpretation See Note (L): Data is abnormally low CARDIOLOGY RELEVANT STUDIES: CXR 03/13/23: Clear EKG EKG 03/13/23: ST at 100 bpm, low voltage QRS Holter monitor 02/04/23 - see scanned docs Rare ectopy Echo and JACQUES 2012 LVEF 40%. LVEDD 5.2 08/2020 LVEF 50-55%. Mild global HK. RV OK. 01/02/22: LVEF 52%, GLS -11%, RV normal, LVIDd 3.99 Stress test Coronary Angiography 08/2013 Mild diffuse disease. LVEDP 17 09/06/21 Mild diffuse disease Right Heart Catheterization 09/06/21 RA 5, PA 45/20 (27), PCW 4, CI/CO 2.75/5.47 ALCANTAR - 4.2 Endomyocardial Biopsy Cardiac MRI 04/2021 IMPRESSION Normal size of the cardiac chambers. Generalized left ventricular hypokinesis resulting in a decreased ejection fraction of 41%. No abnormal postcontrast enhancement that would indicate a postischemic change or infectious/infiltrative cardiomyopathy. Stable enlargement of the spleen. CPET PFT's Sleep Study I thoroughly reviewed the patient's current clinical status, the pertinent laboratory and recent cardiovascular or imaging studies, and the active management plan. Clinical summary ?? A Likely Pathogenic variant, [id number] ([id number]*), was identified in TTN. The TTN gene is associated with autosomal dominant dilated cardiomyopathy (DCM) (MedGen UID: 2880).Additionally, the TTN gene is associated with a diverse group of disorders affecting skeletal muscles, including autosomal dominant tibial muscular dystrophy (TMD) (MedGen UID: 047696) and autosomal recessive limb- girdle muscular dystrophy type 2J (LGMD2J) (MedGen UID: 940502), autosomal recessive centronuclear myopathy (CNM) (PMID: 32003148), and autosomal dominant hereditary myopathy with earlyrespiratory failure (HMERF)(MedGen UID: 857936). Additional TTN-related conditions have also been reported (OMIM: 505661).This result is consistent with a predisposition to, or diagnosis of, autosomal dominant TTN-related conditions. TTN is associated with a clinically heterogeneous group of disorders, collectively known as the titinopathies, which can have distinct and/or overlapping features (PMID: 92795589, 52590412, 44543108). Correlation with a particular condition should include a review of the Variant. Details section of the report below. Pathogenic [id number] variants in the A-band are associated with an increased risk of autosomal dominant DCM, although associations with other types of cardiomyopathy have been suggested (PMID: 39330284, 55242772). DCM is defined by left ventricular dilation and systolic dysfunction. Symptoms include palpitations, dizziness, syncope, chestpain, shortness of breath, heart failure and in some cases sudden cardiac arrest/ (PMID: 94149085, 33203523). For more information about diagnosis and management of dilated cardiomyopathy, please visit [employer]'s website at [email or web address]. Some pathogenic missense variants in exon 343 ofthe A band are only known to be associated with HMERF. HMERF is an early adult-onsetdisorder characterized by proximal and distal skeletal muscle weakness of the upper and lower extremities and respiratory insufficiency (PMID: 72812267, 18936647). Muscle histopathology frequentlyiden tifies inclusion bodies and rimmed vacuoles (PMID: 65285894). Disease progression often includes loss of the ability to walk and the need for permanent ventilatory support relatively early in life (PMID: 82967736). Clinical, MRI, and histopathology similarities exist between HMERF and myofibrillar myopathies (PMID: 69494739). Pathogenic variants in the A-band may also be associated with autosomalrecessive neuromusculardisorders, including centronuclear myopathy and limb-girdle muscular dystrophy (PMID: 90490986, 05426765). Biological relatives have a chance of being at risk for autosomal dominant TTN- related conditions and have a chance of being carriers for autosomal recessive TTN-related conditions. Those at risk should consider testing. IMPRESSION / PLAN: Jammie Gottlieb is a 47 y.o. female with history as above, seen with the following impression and plan: L/RHC completed. Non-obstructive disease on cath. Low filling pressures with evidence of mild PH. Genetic testing completed - TTN gene identified 1. 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 Chronic systolic CHF, HFmrEF; well compensated, euvolemic on exam today NYHA functional class ACC/AHA Stage Dry Weight NYHA class II; ACC/AHA Stage C Dry Weight 216 lbs - normal ProBNP Beta Peggy and/or Ivabradine Metoprolol succinate 50 mg daily - Inc to 100 mg daily REEMA or ARB or Entresto Losartan 25 mg daily Aldosterone antagonist Discontinued possibly in the setting of MACY With LVEF >50% currently not indicated Diuretic Stopped Lasix 2/2 intravasculation volume depletion ICD or STAINED GLASS INSTALLER-D if indicated Not indicated with LVEF >35% Other considerations Jardiance 10 mg daily - tolerating, had stopped Farxiga in the past due to recurrent yeast infections 3. HTN Well controlled 4. DM Trulicity Metformin 5. HLD - Low HDL, high TG On Crestor with LDL of 37 HDL 27 TGs 609 - recommend prescription fish oil RECOMMENDATIONS: 1. I would like to have her complete a CXR today (done, clear) and schedule a stress echo in anticipation of shoulder surgery 2. Inc metoprolol to 100 mg daily, elevated resting HR and palpitations 3. Add fish oil for elevated TGs COUNSELING: The signs and symptoms to be aware of for more urgent evaluation were discussed and all questions addressed. The patient was counseled to continue cardiovascular care management and self management principles and to notify providers of any change in clinical status. Additionally, we discussed the fo llowing non-pharmacological measures during this visit: ??? Smoking and alcohol abstinence/cessation, if applicable ??? Dietary and medication compliance ??? Monitoring daily weights and blood pressures ??? Exercise regimen ??? When to call our office FOLLOW UP: 6 months in clinic with attending Kina Awad PA-C documented in this encounter Plan of Treatment Upcoming Encounters Date Type Department Care Team (Late st Contact Info) Description 07/09/2024 10:00 AM EDT Hospital Encounter Non[place] [address] Arrived documented as of this encounter Results * XR Chest PA [...] who have questions please contact the health customer care representative that requested your imaging first. ? Electronically signed by: Felisa Carlisle MD, [facility] ([phone]), at 03/12/2023 11:56 AM Narrative 03/12/2023 11:56 [...] patients who have questions please contactthe health customer care representative that requested your imaging first. Electronically signed by: Felisa Carlisle MD, [facility]([phone]), at 03/12/2023 11:56 AM Loyda Barrios MD IMG DX ORDERABLES * pro-Brain Natriuretic Peptide (03/12/2023 8:10 AM EDT) ProBNP 49 <=124 pg/mL [facility] Blood 03/12/2023 8:10 AM EDT 03/12/2023 8:19 AM EDT Narrative Resulting Agency Comment Spec In Lab Loyda Barrios MD CHEMISTRY ORDERABL ES [facility] [place] [address] * (ABNORMAL) Comprehensive metabolic panel (non-fasting) (03/12/2023 8:10 AM EDT) Glucose Lvl 193 65 - 199 mg/dL [facility] Comment:Diabetes: >=200 mg/d L plus symptoms BUN 10 8 - 18 mg/dL [facility] Creatinine 0.53(L) 0.70 - 1.20 mg/dL [facility] Sodium 137 135 - 145 mmol/L [facility] Potassium 3.9 3.5 - 5.0 mmol/L [facility] Comment: Please note: ??Patients with WBC >100,000 may have falsely elevated Potassium levels. ??For accurate Potassium quantification in these patients send serum separator tube (gold top) for subsequent determinations. ??Contact the Clinical Chemistry Laboratory if there are any questions. Chloride 99 98 - 107 mmol/L [facility] CO2 26 22 - 31 mmol/L [facility] Anion Gap 12 5 - 15 mmol/L [facility] Calcium 9.2 8.5 - 10.5 mg/dL [facility] Total Protein 6.7 6.1 - 8.0 g/dL [facility] Albumin 4.0 3.2 - 5.2 g/dL [facility] AST 22 0 - 30 unit/L [facility] ALT 16 0 - 30 unit/L [facility] Alk Phos 59 35 - 105 unit/L [facility] Total Bilirubin 0.4 0.2 - 1.3 mg/dL [facility] Estimated GFR 115 >=60 mL/min/1. 73 m?? [facility] Comment: This patient's estimated [...] Lab Loyda Barrios MD CHEMISTRY ORDERABL ES [facility] [place] [address] * Lipid Panel (Reflex Direct LDL) (03/12/2023 8:10 AM EDT) Chol, Total 124 mg/dL [facility] Comment: Lower Risk: <200 mg/dL Average Risk: 200-239 mg/dL Higher Risk: >nx=791 mg/dL Triglycerides 609 mg/dL [facility] Comment: Average Risk/Lower Risk: <150 mg/dL Borderline High Risk: 150-199 mg/dL High Risk: 200-499 mg/dL Very High Risk: >rk=861 mg/dL HDL 27 mg/dL [facility] Comment: Males: ?? Higher Risk: <40 mg/dL Females: ?? Higher Risk: <50 mg/dL LDL Cholesterol Not Calculated [facility] Comment: Calculated LDL value is not valid for triglycerides greater than 400 mg/dl. Lowest Risk: <100 mg/dL Lower Risk: 100-129 mg/dL Borderline High Risk: 130-159 mg/dL High Risk: 160-189 mg/dL Very High Risk: >ri=155 mg/dL Chol/HDL Ratio 4.6 ratio [facility] Lipid Interpretation See Note [facility] Comment: Lipid management should be guided by a patient? s ASCVD risk, goals and preferences. ACC/AHA Guidelines recommend high intensity statin if clinical ASCVD or LDL greater than or equal to 190 mg/dL. http://[email or web address].com/VQC-WRX-Hzapmppfm Adults aged 40-75 with LDL 70-189 mg/dL should have their 10 year ASCVD risk estimated with the ACC/AHA ASCVD risk supervisor vacuum metalizing http://tools.acc.org/CMGLQ-Qhpu-Fzmrnljaj/ Statin should be discussed if risk greater [...] Lab Loyda Barrios MD CHEMISTRY ORDERABL ES [facility] [place] [address] documented in this encounter Visit Diagnoses Diagnosis HFrEF (heart failure with reduced ejection fraction) Community acquired pneumonia, unspecified laterality Other chest pain Community acquired pneumonia, unspecified laterality documented in this encounter Care Teams Diamond Expert Relationship Specialty Start Date End Date Edie Ellis MD [address] [place] [address] PCP - General 10/15/10 documented as of this encounter
--- OUTSIDE RECORDS SUMMARY | 2024-06-03 00:25 | XMS_ITS | Encounter Summary ---
Author Organization Formerly [facility] [place] [address] Care Team Providers Care Management Manager Name Role Phone Edie Ellis MD Primary Care Provider [phone] Encounter Details Date Type Department Care Team (Late st Contact Info) Description 11/11/2021 Telephone Medical Genetics at [address] [phone] [facility] 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 Other family members are at increased risk to have this variant and can have testing if desired. Testing can be done for no charge for 150 days. We discussed how genetic testing can impact the ability to obtain insurance. A federal law called the Genetic Information Nondiscrimination Act (BC) is designed to protect people from being discriminated against due to their genetic testing results in obtaining health insurance and employment. However, the BC protections do not extendto life, fpc care, or disability insurance policies. We reviewed how a positive genetic testing result may cause an individual difficulty obtaining these types of insurance policies, especiallyif they do not already have them in place. I recommended that her children consider setting up any policies prior to testing. Her children will need to request a referral if they want testing. 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 As new information becomes available our interpretation of the VUS may change, so they should contact us periodically to askfor reinterpretation if desired. Other family members are also at increased risk to be carriers, however it can be controversial to order carrier testing for a VUS due to lack of clinical utility. We do not plan to schedule a follow up visit at this time but remain available upon request should new questions or concerns arise. We agreed she would call me with additional questions. * Telephone Encounter - [facility] - 11/11/2021 8:51 AM EST [facility] Panel: Clinical summary A Likely Pathogenic variant, c.62208Y>T (p.Vhh91060*), was identified in TTN. The TTN gene is associated with autosomal dominant dilated cardiomyopathy (DCM) ([facility]Gen UID: 2880).Additionally, the TTN gene is associated with a diverse group of disorders affecting skeletal muscles, including autosomal dominant tibial muscular dystrophy (TMD) ([facility] UID: 899846) and autosomal recessive limb-girdle musculardystrophy type 2J (LGMD2J) ([facility]Gen UID: 050634), autosomal recessive centronuclear myopathy (CNM) (PMID: 60196656), and autosomal dominant hereditary myopathy with early respiratory failure (HMERF)([employer] UID: 200852). Additional TTN-related conditions have also been reported (OMIM: 332307). This result is consistent with a predisposition to, or diagnosis of, autosomal dominant TTN-relatedconditions. TTN is associated with a clinically heterogeneous group of disorders, collectively known as the titinopathies, which can have distinct and/or overlapping features (PMID: 53484486, 47441994, 07750337). Correlation with a particular condition should include a review of the Variant Details section of the report below. Pathogenic qwix-kp-clhkhgmi variants in the A-band are associated with an increased risk of autosomal dominant DCM, although associations with other types of cardiomyopathy have been suggested (PMID: 99691690, 30332417). DCM is defined by left ventricular dilation and systolic dysfunction. Symptoms include palpitations, dizziness, syncope, chest pain, shortness of breath, heart failure and in some cases sudden cardiac arrest/ (PMID: 66287888, 64909483). For more information about diagnosis and management of dilated cardiomyopathy, please visit [employer]'s website at [email or web address]. Some pathogenic missense variants in exon 343 ofthe A band are only known to be associated with HMERF. HMERF is an early adult-onset disorder characterized by proximal and distal skeletal muscle weakness of the upper and lower extremities and respiratory insufficiency (PMID: 59263413, 56813815). Muscle histopathology frequentlyidentifies inclusion bodies and rimmed vacuoles (PMID: 49174645). Disease progression often includes loss of the ability to walk and the need for permanent ventilatory support relatively early in life (PMID: 16357890). Clinical, MRI, and histopathology similarities exist between HMERF and myofibrillar myopathies (PMID: 78800103). Pathogenic variants in the A-band may also be associated with autosomal recessive neuromusculardisorders, including centronuclear myopathy and limb-girdle muscular dystrophy (PMID: 74054276, 84038713). Biological relatives have a chance of being at risk for autosomal dominant TTN- related conditions and have a chance of being carriers for autosomal recessive TTN-related conditions. Those at risk should consider testing. A Variant of Uncertain Significance, c.1392G>C (p.Knd739Uix), was identified in GAA. The GAA gene is associated with autosomal recessive Pompe disease, also known as glycogen storage disease type II (GSDII) ([facility] UID: 5340).Not all variants present in a gene cause disease. The clinical significance of the variant(s) identified in this gene is uncertain. Until this uncertainty canbe resolved, caution should be exercised before using this result to inform clinical management decisions. Familial VUS testing is not offered. Testing family members for this variant will not contribute evidence to allow variant reclassification. Details on our VUS Resolution and Family Variant Testing Programs can be found at [email or web address]. Variant details TTN, Exon 326, c.96612G>T (p.Pqd95835*), heterozygous, Likely Pathogenic This sequence change creates a premature translational stop signal (p.Plh18309*) in the TTN gene. While this is not anticipated to result in nonsense mediated decay, it is expected to create a truncated TTN protein. This variant is not present in population databases (NextlyD no frequency). This premature translational stop signal has been observed in individual(s) with dilated cardiomyopathy (PMID: 42250203). This variant is also known as c.88472Y>T (p.Wzu09192maam). ClinVar contains an entry for this variant (Variation ID: [id number]). Algorithms developed to predict the effect of sequence changes on RNA splicing suggest that this variant may create or strengthen a splice site. This variant is located in the A band of TTN (PMID: 42831564). Truncating variants in this region are significantly overrepresented in patients affected with dilated cardiomyopathy (PMID: 36483613). Truncating variants in this region have alsobeen reported in individuals affected with autosomal recessive centronuclear myopathy (PMID: 56624929). In summary, the currently available evidence indicates that the variant is pathogenic, but additional data are needed to prove that conclusively. Therefore, this variant has been classified as Likely Pathogenic. 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 This variant is present in population databases ([id number], gnomAD 0.01%). This missense change has been observed in individual(s) with a positive screening result for GAA-related disease (PMID: 59278094). ClinVar contains an entry for this variant (Variation ID: [id number]). Algorithms developed to predict the effect of missense changes on protein structure and function are either unavailable or do not agree on the potential impact of this missense change (SIFT: Deleterious; PolyPhen-2: Possibly Damaging; Align-GVGD: Class C15). In summary, the available evidence is currently insufficient to determine the role of this variant in disease. Therefore, it has been classified as a Variant of Uncertain Significance. documented in this encounter Plan of Treatment Upcoming Encounters Date Type Department Care Team (Late st Contact Info) Description 07/09/2024 10:00 AM EDT Hospital Encounter [place] [phone] Arrived documented as of this encounter Visit Diagnoses Not on filedocumented in this encounter Care Teams Management Manager Relationship Specialty Start Date End Date Edie Ellis MD [address] [place] [address] PCP - General 10/15/10 documented as of this encounter
--- OUTSIDE RECORDS SUMMARY | 2024-06-03 00:25 | XMS_ITS | Encounter Summary ---
[place] [address] Care Team Providers Care Boom Supervisor Name Role Phone Edie Ellis MD Primary Care Provider [phone] Encounter Details Date Type Department Care Team (Late st Contact Info) Description 10/22/2021 [place] [phone] Edie Kaba Social History Tobacco Use Types Packs/Day Years [...] AM EDT Hospital Encounter Non[place] [address] Arrived documented as of this encounter Visit Diagnoses Not on filedocumented in this encounter Care Teams Boom Supervisor Relationship Specialty Start Date End Date Edie Ellis MD [address] [place], [place] [address] PCP - General 10/15/10 documented as of this encounter
--- OUTSIDE RECORDS SUMMARY | 2024-06-03 00:25 | XMS_ITS | Encounter Summary ---
Author Organization Formerly [facility] Address [facility] [place] [address] Care Team Providers Care Casing Machine Operator Name Role Phone Edie Ellis MD Primary Care Provider [phone] Encounter Details Date Type Department Care Team (Late st Contact Info) Description 09/06/2021 9:00 AM EDT - 09/06/2021 10:00 AM EDT [place] [address] Justino Washburn MD [facility] [place] [address] CARDIAC CATHETERIZATION Social History Tobacco Use Types Packs/Day Years Used Date Smoking Tobacco: Former Cigarettes 1 3 1 - 08/27/2021 Smokeless Tobacco: Never Tobacco Cessation:Counseling Given: Yes Alcohol Use Standard Drinks/Week Comments Not Currently [...] Sign Reading Time Taken Comments Blood Pressure 117/85 09/06/2021 7:30 AM EDT Pulse 91 09/06/2021 7:30 AM EDT Temperature 36.7 ??C (98.1 ??F) 09/06/2021 7:30 AM ED T Respiratory Rate - - Oxygen Saturation 93% 09/06/2021 7:30 AM EDT Inhaled Oxygen Concentration - - Weight - - Height - - Body Mass Index - - documented in this encounter Discharge Instructions * Discharge Instructions* Vianey Fernandez, RN - 09/06/2021 2:41 PM EDT Radial Access for Heart Cath Activity If you are discharged the same day as your procedure, do not drive yourself home. Arrange to have another person drive. You may walk around when you get home, but keep your activity at a minimum until the morning. Try to avoid bending your wrist for the first 12-24 hours after the procedure to allow the artery to fully heal. Do not participate in active sports for 48 hours. Do not lift anything greater than 5 lbs. You may engage in sexual activity after 48 hours. Catheter Insertion Area Care Take the dressing off of the catheter insertion site the morning following the procedure. Leave thesite open to air. If the site is oozing you may cover it with a band aid. You may take a shower if you wish. Look for signs of infection over the next several days. It is uncommon to have any visible blood at the site, any obvious bleeding is abnormal. A bruise around the wrist or small lump under the skin is normal: they generally disappear in 3-5 days. Expect some mild tenderness over the area where the catheter was inserted. You will notice this after the local anesthetic (numbing medicine) wears off. This should improve during the 24-48 hours after the procedure. You may use acetaminophen (tylenol) if needed. Contact your doctor if the discomfort worsens. Problems to Watch for If there is bright red blood flowing from the catheter insertion area: *stop what you are doing *hold pressure steadily on the area for 15 minutes *call for help *if the bleeding does not stop in 15 minutes call 911 for an ambulance. If there is swelling with black and blue color at the catheter insertion site, there may be bleeding inside. Contact the doctor if there is any increase in size. Look at the insertion site for the first few days at home. Signs of infection are: *redness *swelling *yellow, white, green or brown foul smelling drainage. *increased soreness If you think there is an infection, take your temperature. Then call your doctor. The limb on the side where you had your catheterization should look and feel normal in color, sensation, and temperature. If your hand or fingers become cool, pale, blue or change color contact your doctor. If you are having numbness or tingling in your fingers or hand contact your doctor. If you feel faint or dizzy, lie down with your feet elevated. Have someone call the doctor. If you are alert, drink fluids. How to Deal with Chest Pain If you had only the cardiac catheterization, treat any angina or chest discomfort as instructed. Stop what you are doing, and sit or lie down. If prescribed, take nitroglycerin under your tongue. If the angina isn't relieved, take another nitroglycerin in 5 minutes. After another 5 minutes, a third nitroglycerin may be taken. If the angina isn't improved you should call for an ambulance to bring you to the nearest hospital emergency room. If your angina is more frequent or severe than before, contact your doctor. We usually would not expect you to have angina after an angioplasty. If you do get angina, treat itas you did before, but also contact your doctor. Return to Work The doctor will usually have told you when to return to work. If you do not perform heavy physical labor, most people can return to work in a few days. Diet Follow your previous diet unless otherwise instructed. Cardiac Risk Factor If you have coronary artery disease, it is important that you help control it by reducing your cardiac risk factors. If you smoke, we urge you to stop now. If you think this is going to be a problem,let us know so that we may help you. We have dieticians who can help you learn about a low fat, lowcholesterol diet. Cardiac rehabilitation programs can help you set up a regular exercise program. Work with your doctor if you have high blood pressure or sugar diabetes to keep these under control. Medications Take your usual medications medication changes If you are taking medications prescribed by your doctor, do not take any [id number] medicinesor herbal preparations without first discussing this with your doctor or pharmacist. There is the possibility of side effects and interactions when these are combined. Follow Up Care Who to call with questions or problems If there are any questions or problems that you think might be related to your cardiac cath or angioplasty, contact the commissary clerk director international by calling [facility] at . documented in this encounter Medications at Time of Discharge Medication Sig Dispensed Refills Start Date End Date cholecalciferol, Vitamin D3, 50 mcg (2,000 unit) [...] a day 03/12/2015 naloxone (Narcan) 4 mg/actuation [place], Non-Aerosol Once 03/10/2019 magnesium oxide (MAG-OX) 400 [...] capsule Take 20 mg by mouth daily. dapagliflozin (Farxiga) 10 mg TabletIndications:Type 2 diabetes mellitus without complication, unspecified whether care home insulin use Take 10 mg by mouth daily. 90 tablet 3 07/23/2021 01/02/2022 pregabalin (Lyrica) 75 mg Capsule Three times a day 03/06/2017 07/13/2023 dulaglutide (Trulicity) 1.5 mg/0.5 mL Pen Injector every week 04/02/2021 01/02/2022 furosemide (Lasix) 20 mg Tablet Take 20 mg by mouth daily as needed. 04/01/2021 01/02/2022 ketorolac (Toradol) 10 mg Tablet Three times a day 09/28/2019 01/02/2022 melatonin 10 mg Tablet, Rapid Dissolve DISSOLVE 1 TABLET UNDER THE TONGUE AT BEDTIME 04/24/2021 01/02/2022 nicotine (NICODERM CQ) 7 mg/24 hr Patch 24 hr APPLY 1 PATCH TOPCAILLY TO HAIRLESS SKIN DAILY ROTATE SKIN SITES 05/27/2021 03/09/2023 Nicotrol 10 mg Cartridge INHALE CONTENTS FROM 1 CARTRIDGE PER HOUR NEEDED 05/27/2021 03/09/2023 ondansetron (Zofran) 4 mg Tablet TAKE 1 TABLET BY MOUTH EVERY 8 HOURS NEEDED FOR NAUSEA 06/05/2021 01/02/2022 lisinopriL (Zestril) 5 mg Tablet Take 1 tablet by mouth daily. 90 tablet 3 06/17/2021 01/02/2022 metoprolol succinate (TOPROL-XL) 50 mg 24 hr tablet Take 50 mg by mouth daily. 03/12/2023 HYDROmorphone (DILAUDID) 2 mg tablet Take 1 tablet by mouth every 4 hours as needed for Pain. 20 tablet 0 06/03/2012 07/15/2023 PARoxetine (PAXIL) 20 mg tablet Take 60 mg by mouth every morning. 01/02/2022 clonAZEpam (KLONOPIN) 1 mg tablet Take 1 mg by mouth 2 times daily as needed. 01/02/2022 documented as of this encounter Progress Notes * Vianey Fernandez, RN - 09/06/2021 2:55 PM EDT Pt back to sdp via stretcher. Sling provided to pt after discharge instructions given. Ambulated tobathroom. Gait steady. Right wrist benign. documented in this encounter H&P Notes * Miguel Ly MD - 09/05/2021 7:16 PM EDT Images from the original note were not included. Jammie Gottlieb is a 46 y.o. female with a PMH of HTN, DM, syncope, chronic low back pain s/p lumbar spine surgery, migraines, depression, fatty liver referred for cardiac catheterization by Kina Awad for evaluation of established cardiomyopathy. In brief, patient was initially dx with cardiomyopathy in 2012. Cardiac cath at that time showed non-obstructive disease. She has recently been having exertional chest tightness and frequent SOB with climbing stairs (can only walk up 3 steps). Most recent cMR showed EF of 41% in 04/2021. There have not been any changes in health status since last seen in clinic. No recent or current illnesses. Patient denies fevers, chills. Patient denies any history of bleeding issues and specifically denies hematochezia, melena, hematemesis, intraabdominal bleeding, intracddranial bleeding. Planned/pending surgeries: None Has some kidney disease but stable. Current antiplatelets/anticoagulants: Aspirin Diabetic medications: Metformin Current Smoker NPO status: Since 3pm on 09/05. Outpatient Medications Marked as Taking for the 09/06/21 encounter (Hospital Encounter) Medication Sig Dispense Refill ??? cholecalciferol, Vitamin D3, 50 mcg (2,000 unit) Capsule TAKE 1 CAPSULE BY MOUTH DAILY ??? dapagliflozin (Farxiga) 10 mg Tablet Take 10 mg by mouth daily. 90 tablet 3 ??? pregabalin (Lyrica) 75 mg Capsule Three times a day ??? cyanocobalamin, Vitamin B-12, (Vitamin B-12) 1,000 mcg Tablet TAKE 1 TABLET BY MOUTH EVERY DAY ??? dulaglutide (Trulicity) 1.5 mg/0.5 mL Pen Injector every week ??? estradioL (Estrace) 1 mg Tablet ??? furosemide (Lasix) 20 mg Tablet TAKE 1 TABLET BY MOUTH EVERY DAY ??? ketorolac (Toradol) 10 mg Tablet Three times a day ??? lamoTRIgine (LaMICtal) 100 mg Tablet TAKE 1 TABLET BY MOUTH EVERY DAY ??? levothyroxine (Synthroid) 25 mcg Tablet Bedtime ??? loratadine (Claritin) 10 mg Tablet TAKE 1 TABLET BY MOUTH EVERY DAY NEEDED ??? melatonin 10 mg Tablet, Rapid Dissolve DISSOLVE 1 TABLET UNDER THE TONGUE AT BEDTIME ??? metFORMIN XR (Glucophage XR) 500 mg Tablet Sustained Release 24 hr Twice a day ??? nicotine (NICODERM CQ) 7 mg/24 hr Patch 24 hr APPLY 1 PATCH TOPCAILLY TO HAIRLESS SKIN DAILY ROTATE SKIN SITES ??? Nicotrol 10 mg Cartridge INHALE CONTENTS FROM 1 CARTRIDGE PER HOUR NEEDED ??? ondansetron (Zofran) 4 mg Tablet TAKE 1 TABLET BY MOUTH EVERY 8 HOURS NEEDED FOR NAUSEA ??? lisinopriL (Zestril) 5 mg Tablet Take 1 tablet by mouth daily. 90 tablet 3 ??? magnesium oxide (MAG-OX) 400 mg tablet [...] ??? PARoxetine (PAXIL) 20 mg tablet Take 60 mg by mouth every morning. ??? naratriptan (AMERGE) 2.5 mg tablet Take 2.5 mg by mouth as needed. Take one (1) tablet at onsetof headache; if returns or does not resolve, may repeat after 4 hours; do not exceed five (5) mg in24 hours. ??? clonAZEpam (KLONOPIN) 1 mg tablet Take 1 mg by mouth 2 times daily as needed. ??? albuterol (PROVENTIL HFA;VENTOLIN HFA) 90 mcg/Actuation inhaler Inhale 2 puffs into the lungs every 4 hours as needed. Use with spacer ??? omeprazole (PRILOSEC) 20 mg capsule Take 20 mg by mouth daily. BP 117/85 (BP Location (NBP): Right arm) Pulse 91 Temp 36.7 ??C (98.1 ??F) (Temporal) SpO2 93% General - No acute distress. Well-groomed/nourished. Speech is normal HEENT - EOMI. Not jaundiced. Noninjected. Mouth moist without lesions. Respiratory - Clear to auscultation bilaterally. Cardiac - RRR, normal S1/S2, no audible murmur, gallop or rubs. No DOANVON JVD WNL Vasc: 2+ bilat radial. 2+ bilat DP pulses Abdomen - Soft, nontender/nondistended, normal active bowel sounds, neg hsm or masses. Extremities - No clubbing or cyanosis. Pulses intact. Neuro - Limited exam. No deficits. ASA: 3: Patient with severe systemic disease Mallampati: Class III Labs reviewed and notable for: Lab Results Component Value Date WBC 8.7 07/01/2021 HGB 12.9 07/01/2021 HCT 39.4 07/01/2021 MCV 91.0 07/01/2021 PLATELET 183 07/01/2021 Lab Results Component Value Date CREATININE 0.66 (L) 08/16/2021 BUN 12 08/16/2021 NA 135 08/16/2021 K 4.6 08/16/2021 CL 98 08/16/2021 CO2 28 08/16/2021 Cardiac MRI 04/2021 Normal size of the cardiac chambers. Generalized left ventricular hypokinesis resulting in a decreased ejection fraction of 41%. No abnormal postcontrast enhancement that would indicate a postischemic change or infectious/infiltrative cardiomyopathy. Stable enlargement of the spleen. Echocardiogram: 2012 LVEF 40%. LVEDD 5.2 ?? 08/2020 LVEF 50-55%. Mild global HK. RV OK. ECG: Results for orders placed or performed during the hospital encounter of 07/01/21 EKG 12 Lead Result Value Ref Range Ventricular rate 75 BPM Atrial Rate 75 BPM P-R Interval 180 ms QRS Duration 70 ms Q-T Interval 420 ms QTC Calculated (Bezet) 469 ms Calculated P Ponce 9 degrees Calculated R Ponce -5 degrees Calculated T Ponce 18 degrees INTERPRETATION Normal sinus rhythm Low voltage QRS Low septal forces Poor R-wave progression Abnormal ECG When compared with ECG of 07-SEP-2013 09:28, No significant change was found Confirmed by Rainer Nova MD ([id number]) on 07/01/2021 12:26:28 PM Cardiac Cath 08/2013 Mild diffuse disease. LVEDP 17 A/P Jammie Gottlieb is a 46 y.o. female who is presenting for cardiac catheterization for evaluation ofSOB/chest tightness in the setting of known cardiomyopathy The indications, expected benefits, and potential risks of diagnostic or therapeutic catheterization were reviewed in detail with the patient. The potential for , myocardial infarction, arrhythmias, stroke, kidney failure, hemorrhage, allergic reaction to contrast, vascular complications and infection were reviewed in detail. The possibility of stenting and other percutaneous intervention, with associated risk, was reviewed. The possible need for emergent coronary artery bypass surgery wasreviewed. Alternatives were discussed and the patient's questions were answered. Following this discussion, the patient consented to the procedure and signed a form attesting to this. - Proceed as planned - Consent reviewed and signed - No obvious CI to DAPT - Sedation plan: moderate/conscious sedation - FULL CODE Miguel Ly MD 09/06/2021 10:29 AM documented in this encounter Miscellaneous Notes * Brief Op Note - Justino Washburn MD - 09/06/2021 12:29 PM EDT Images from the original note were not included. [facility] [place] [address] [address] CORONARY ANGIOGRAM AND PERCUTANEOUS CORONARY INTERVENTION REPORT Patient: Jammie Gottlieb : 1975 MR number: [id number] Date of Service: 09/06/2021 Addiction Specialist: Justino Washburn MD Fellow: Femi Koroma MD INDICATION: Jammie Gottlieb is a 46 y.o. female with a PMH of HTN, DM, syncope, chronic low back pain s/p lumbar spine surgery, migraines, depression, fatty liver referred for cardiac catheterizationby Kina Awad for evaluation of established cardiomyopathy. In brief, patient was initially dx with cardiomyopathy in 2012. Cardiac cath at that time showed non-obstructive disease. She has recently been having exertional chest tightness and frequent SOB with climbing stairs (can only walk up 3steps). Most recent cMR showed EF of 41% in 04/2021. She is now undergoing cardiac catheterization to evaluate her CMP. PROCEDURES PERFORMED: ??? Left heart cath, coronary angiogram. ??? Right heart cath PROCEDURE: ??? The risks, benefits and alternatives of the procedures and moderate sedation were explained to the patient and informed consent was obtained. The patient was brought to the metallurgy laboratory technician and placed onthe table. Time out was performed. The planned puncture sites were prepped and draped in the usual sterile fashion. The patient was sedated for the procedure. Cardiac catheterization performed. ??? Rt Radial artery access. The puncture site was infiltrated with 2 % lidocaine. The vessel was accessed using the modified Seldinger technique, a wire was threaded into the vessel, and a 6 Fr glide sheath slender was advanced over the wire into the vessel. Vasodilators and heparin were given after access obtained. ??? Left coronary artery angiography. A 5 Fr Jana catheter was advanced to the aorta and positioned in the vessel ostia under fluoroscopic guidance. Angiography was performed in multiple projections. Intracoronary nitroglycerin was given in order to achieve maximal vasodilatation. ??? Right coronary artery angiography. A 5 Fr Jana catheter was advanced to the aorta and positioned in the vessel ostia under fluoroscopic guidance. Angiography was performed in multiple projections. Intracoronary nitroglycerin was given in order to achieve maximal vasodilatation. ??? Right heart catheterization. A 6 Fr 100 PA catheter was advanced to the right atrium, right ventricle, pulmonary artery and pulmonary artery wedge position. Measurements of arterial and venous oxygen saturation and cardiac output (by Rashida using assumed VO2) were obtained. ??? Weight-based heparin was given for procedural anticoagulation to maintain an ACT of 250 secondsby Hemochron throughout the case. ??? Contrast given. 50 ml Optiray 350. ??? At the end of the case, a Trans Radial Band was applied to the right wrist and the arterial sheath was removed with hemostasis obtained. The patient was transported to the post-procedure holding area in stable condition. ??? There were no procedural complications. ??? I provided direct [id number] monitoring of conscious sedation which was administered by an independent trained nurse. RESULTS: Hemodynamics: PCWP 5 mmHg, LVEDP 4 mmHg, normal CI. Coronary circulation: The coronary circulation is right dominant. There was mild, non-obstructive coronary disease: ?? Left main: Angiography showed mild diffuse disease. ?? LAD: Angiography showed mild diffuse disease. ?? Circumflex: Angiography showed mild diffuse disease. ?? RCA: Angiography showed mild diffuse disease. SUMMARY AND THERAPEUTIC RECOMMENDATIONS: ??? Jammie Gottlieb has well optimized hemodynamics and mild, non-obstructive coronary disease. D/Liv RODRÍGUEZ. ??? I was present during the entire procedure and personally dictated or confirmed the above report. Justino Washburn MD MS ANNIE 09/06/2021 12:29 PM documented in this encounter Plan of Treatment Upcoming Encounters Date Type Department Care Team (Late st Contact Info) Description 07/09/2024 10:00 AM EDT Hospital Encounter Non-[place] [address] Arrived documented as of this encounter Procedures Procedure Name Priority Date/Time Associated Diagnosis Comments CARDIAC CATHETERIZATION Routine 09/06/20 12:30 PM EDT HFrEF (heart failure with reduced ejection fraction) Cardiomyopathy, unspecified type POCT GLUCOSE Routine 09/06/2021 8:23 AM EDT BMP W/FASTING GLUCOSE STAT 09/06/2021 8:10 AM EDT HEMOGRAM STAT 09/06/2021 8:10 AM EDT DIFFERENTIAL, AUTOMATED STAT 09/06/20 8:10 AM EDT HC PROTHROMBIN TIME STAT 09/06/2021 8 :10 AM EDT HC CBC,PLT & AUTO DIFF STAT 8:10 AM EDT documented in this encounter Results * CARDIAC CATHETERIZATION (09/06/2021 12:30 PM EDT) Anatomical Region Laterality Modality Other Narrative 09/06/2021 12:54 PM EDT ?[facility] ? Cardiac Catheterization/Intervention Report ? Patient Name: Jammie Gottlieb. ? Procedure Date: 09/06/2021 ? A #: [id number] ? Primary Physician: Justino Washburn ? Case #: [id number] ? File Name: [id number] ? Catheterization Order Number: [id number] ? [facility] ? Final Report [place], [place] ? Patient Name: ? Jammie A. [place] ? ID#: ?[id number] ? : ?1975 ? Procedure Date: ? September 06, 2021 ? Case #: ? [id number] ? Room: ? 1 ? Case Physician: ? Justino P Washburn, M.D. ?Start: ?11:54 ?Fellow: ? Randy Koroma M.D. ?Admission: ??09/06/2021 ? Referring ? Sanchez Gant ? Physicians: ?Alla Juárez M.D. ? Procedures: ?* Coronary Angiography ?* Left Heart Catheterization ?* Right Heart Catheterization ?* Oximetry ? History ?Jammie Gottlieb is a 46 year old woman. She has hypertension and morbid ?obesity. The patient's smoking status is Former. She has ?hypercholesterolemia managed with lipid therapy. The patient has diabetes ?controlled by diet. She has a history of dilated cardiomyopathy. The ?patient has a history of CHF. The CHF is NYHA Functional Class II and is ?classified as Systolic. Prior to the initiation of this procedure, the ?patient was designated as ASA Class II. The CSHA clinical frailty scale ?is 3: Managing Well. ? Diagnostic Tests: ?Prior Coronary Angiography: ? LV ejection fraction within 6 months is 41%. ?Medications Prior to Procedure: ? Angiotensin Converting Enzyme Inhibitor, Aspirin, Beta Peggy and ? Statin. ? Indications for Diagnostic Cath: ?The priority of the diagnostic procedure was Elective. The indication for ?the metallurgy laboratory technician visit is cardiomyopathy. Chest pain symptom assessment was: ?Asymptomatic. ? Technique: ?A 6 SLFr sheath was inserted in the right radial artery utilizing the ?Seldinger technique. A 6 SLFr sheath was inserted in the right median ?antecubital vein utilizing the Seldinger technique. Right heart ?catheterization was performed utilizing a 6Fr BALLOON WEDGE catheter. The ?left coronary artery was injected utilizing a 5Fr JANA RADIAL catheter. ?A 5Fr JANA RADIAL catheter was used to inject the right coronary artery. ?Left ventricular pressure was performed utilizing a 5Fr JANA RADIAL ?catheter. 6,000 units of heparin were administered. A total of 100cc of ?Omnipaque were opened, 65cc of Omnipaque were administered and 35cc of ?Omnipaque were wasted. Radiation: Fluoro time was 7.7 minutes, dose area ?product was 23 mGYcm2 and air kerma was 303 mGY. See the case log for ?additional details. ?The patient received the following medications prior to and during the ?procedure: ? Unfractionated Heparin. ? Hemodynamics: ?Right Heart Pressures ? Resting: ? Syst Diast ? EDP ?a ?v ? m ?RA ? 9 ?6 ? 5 ?RV 46 ?10 ?PA 45 ?20 ?27 ?PCW ?7 ?5 ? 4 ? Hemodynamic Profile: ?Profile 1 ?CO ? 5.47 ?CI ? 2.75 ?TSR ? 1,258 ?SVR ? 1,185 ?TPR ?395 ?PVR ?336 ?Technique ?Estimated Rashida ?Left Heart Pressures ? Resting: ? Syst Diast ? EDP ?a ?v ? m ?Ao 106 ?? 69 ?86 ?LV 102 ? 6 ? Oximetry: ?Location ? %Sat ?Location ?%Sat ?Main Pulmonary Artery ??62.0 ?radial art ?86.0 ? Coronary Angiography: ?Dominance: Right ?Left Main ? There was mild diffuse (<=25% stenosis) disease of the entire vessel ? segment of the left main artery. ?Left Anterior Descending ? There was mild diffuse (<=25% stenosis) disease of the entire vessel ? segment of the left anterior descending artery (LAD). ?Left Circumflex ? There was mild diffuse (<=25% stenosis) disease of the entire vessel ? segment of the left circumflex artery (LCX). ?Right Coronary Artery ? There was mild diffuse (<=25% stenosis) disease of the entire vessel ? segment of the right coronary artery (RCA). ? Vascular Access: ?Vascular Access Management: ? Manual Compression of the right median antecubital vein access site ? was performed. ? Mechanical Compression of the right radial artery access site was ? performed. ? Conclusions: ?* Nonobstructive coronary artery disease ?* Mild pulmonary hypertension ? Complications/Events: ?The patient had no complications during these procedures. ?The attending physician was present for the entire procedure. ?Dr. Justino Washburn M.D. performed the coronary angiography, left heart ?catheterization, right heart catheterization and oximetry. ? Justino P Washburn, M.D. ? Electronically Signed by: Justino P Washburn, M.D. ? Report Finalized: 09/06/2021 ??12:46 ? Procedure Note Justino Washburn, MD - 09/06/2021 [facility] Cardiac Catheterization/Intervention Report Patient Name: Jammie Gottlieb Procedure Date: 09/06/2021 A #: [id number] Primary Physician: Justino Washburn Case #: [id number] File Name: [id number] Catheterization Order Number: [id number] [facility] FinalReport [place], [place] Patient Name: Jammie Gottlieb ID#:[id number] :1975 Procedure Date: September 06, 2021 Case #: [id number] Room: 1 Case Physician: Justino Washburn M.D. Start: 11:54 Fellow: Randy Koroma M.D. Admission:09/06/2021 Referring Sanchez Gant Physicians: Alla Juárze M.D. Procedures: * Coronary Angiography * Left Heart Catheterization * Right Heart Catheterization * Oximetry History Jammie Gottlieb is a 46 year old woman. She has hypertension andmorbid obesity. The patient's smoking status is Former. She has hypercholesterolemia managed with lipid therapy. The patient hasdiabetes controlled by diet. She has a history of dilated cardiomyopathy. The patient has a history of CHF. The CHF is NYHA Functional Class IIand is classified as Systolic. Prior to the initiation of this procedure,the patient was designated as ASA Class II. The [facility] clinical frailtyscale is 3: Managing Well. Diagnostic Tests: Prior Coronary Angiography: LV ejection fraction within 6 months is 41%. Medications Prior to Procedure: Angiotensin Converting Enzyme Inhibitor, Aspirin, Beta Blockerand Statin. Indications for Diagnostic Cath: The priority of the diagnostic procedure was Elective. 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 Chest pain symptom assessmentwas: Asymptomatic. Technique: A 6 SLFr sheath was inserted in the right radial artery utilizingthe Seldinger technique. A 6 SLFr sheath was inserted in the rightmedian antecubital vein utilizing the Seldinger technique. Right heart catheterization was performed utilizing a 6Fr BALLOON WEDGEcatheter. The left coronary artery was injected utilizing a 5Fr JANA RADIALcatheter. A 5Fr JANA RADIAL catheter was used to inject the right coronaryartery. Left ventricular pressure was performed utilizing a 5Fr JANA RADIAL catheter. 6,000 units of heparin were administered. A total of 100ccof Omnipaque were opened, 65cc of Omnipaque were administered and 35ccof Omnipaque were wasted. Radiation: Fluoro time was 7.7 minutes, dosearea product was 23 mGYcm2 and air kerma was 303 mGY. See the case logfor additional details. The patient received the following medications prior to and duringthe procedure: Unfractionated Heparin. Hemodynamics: Right Heart Pressures Resting: Syst Diast EDP a v m RA 9 6 5 RV 46 10 PA 45 20 27 PCW 7 5 4 Hemodynamic Profile: Profile 1 CO 5.47 CI 2.75 TSR 1,258 SVR 1,185 TPR 395 PVR 336 Technique Estimated Rashida Left Heart Pressures Resting: Syst Diast EDP a v m Ao 106 69 86 LV 102 6 Oximetry: Location %Sat Location %Sat Main Pulmonary Artery 62.0 radial art 86.0 Coronary Angiography: Dominance: Right Left Main There was mild diffuse (<=25% stenosis) disease of the entirevessel segment of the left main artery. Left Anterior Descending There was mild diffuse (<=25% stenosis) disease of the entirevessel segment of the left anterior descending artery (LAD). Left Circumflex There was mild diffuse (<=25% stenosis) disease of the entirevessel segment of the left circumflex artery (LCX). Right Coronary Artery There was mild diffuse (<=25% stenosis) disease of the entirevessel segment of the right coronary artery (RCA). Vascular Access: Vascular Access Management: Manual Compression of the right median antecubital vein accesssite was performed. Mechanical Compression of the right radial artery access sitewas performed. Conclusions: * Nonobstructive coronary artery disease * Mild pulmonary hypertension Complications/Events: The patient had no complications during these procedures. The attending physician was present for the entire procedure. Dr. Justino Washburn M.D. performed the coronary angiography, left heart catheterization, right heart catheterization and oximetry. Justino Washburn M.D. Electronically Signed by: Justino Washburn M.D. Report Finalized: 09/06/2021 12:46 Justino Washburn MD CARDIAC CATH ORDERAB LES * POCT Glucose (09/06/2021 8:23 AM EDT) [facility] POC Glucose 109 65 - 199 mg/dL [facility] Comment: Supplemental ranges: <140 mg/dL before meals <180 mg/dL all other times of the day Blood 09/06/2021 8:23 AM EDT 09/06/2021 8:23 AM EDT Justino Washburn MD POINT OF CARE TEST O RDERABLES [facility] [place] [id number] * (ABNORMAL) Differential, Automated (09/06/2021 8:10 AM EDT) [facility] Neutrophils % 65.0 % [facility] Neutr Abs (ANC) 7.22(H) 1.70 - 6.10 x10(3)/mc L [facility] Lymphocytes % 27.0 % [facility] Lymphocytes Abs 3.0 0.9 - 3.2 x10(3)/mc L [facility] Monocytes % 5.0 % [facility] Monocyte Abs 0.6 0.3 - 0.9 x10(3)/mc L [facility] Eosinophils % 1.9 % [facility] Eosinophils Abs 0.2 0.0 - 0.4 x10(3)/mc L [facility] Basophils % 0.7 % [facility] Basophils Abs 0.1 0.0 - 0.1 x10(3)/ L [facility] Immature Gran % 0.40 % [facility] Comment: Immature granulocytes(IG's)percentage and absolute count will include metamyelocytes, myelocytes, and promyelocytes. Blood smears from CBCs yielding IG's will be scanned manually for concordance. If this scan disagrees with the automated IG or if promyelocytes are noted, a manual differential will be performed. Rylee Gran Abs 0.04 0.00 - 0.04 x10(3)/ L [facility] Blood 09/06/2021 8:10 AM EDT 09/06/2021 8:28 AM EDT Narrative Resulting Agency Comment Spec In Lab Kina RODRÍGUEZ HEMATOLOGY ORDERABLE S Performing Organization Address City/State/[facility] Co de Phone Number [facility] [place] [address] * (ABNORMAL) Hemogram (09/06/2021 8:10 AM EDT) WBC 11.1(H) 4.0 - 9.5 x10(3)/[facility] RBC 5.06 4.00 - 5.21 x10(6)/[facility] Hemoglobin 14.8 11.7 - 15.5 g/dL [facility] Hematocrit 45.1 35.7 - 45.8 % [facility] MCV 89.1 82.6 - 94.4 fL [facility] MCH 29.2 27.1 - 32.0 pg [facility] MCHC 32.8 31.7 - 35.0 g/dL [facility] Platelets 255 145 - 357 x10(3)/[facility] RDWSD 44.4 37.0 - 46.0 fL [facility] RDWCV 13.6 11.5 - 14.1 % [facility] MPV 10.3 7.6 - 12.9 fL [facility] nRBC % Auto 0.0 % [facility] nRBC Abs Auto 0.000 0.000 - 0.000 x10(3)/mcL [facility] Blood 09/06/2021 8:10 AM EDT 09/06/2021 8:28 AM EDT Narrative Resulting Agency Comment Spec In Lab Kina RODRÍGUEZ HEMATOLOGY ORDERABLE S Performing Organization Address [facility] de Phone Number [facility] [place] [address] * Prothrombin Time (09/06/2021 8:10 AM EDT) PT 11.8 9.4 - 12.5 sec [facility] INR 1.0 [facility] Comment: An INR <2.0 indicates adequate procoagulant activity for hemostasis in most patients without underlying bleeding disorders, though the INR may not adequately reflect hemostatic capacity in patients with liver disease and synthetic impairment. The recommended target INR range for therapeutic anticoagulation is 2.0 ? 3.0 for most applications, though lower and higher ranges may be appropriate depending on clinical circumstances. Blood 09/06/2021 8:10 AM EDT 09/06/2021 8:28 AM EDT Narrative Resulting Agency Comment Spec In Lab Alla Richardson MD HEMATOLOGY O RDERABLES Performing Organization Address [facility] de Phone Number [facility] [place] [address] * (ABNORMAL) BMP w/fasting Glucose (09/06/2021 8:10 AM EDT) Glucose Fasting 112(H) 65 - 99 mg/dL [facility] Comment: ?Fasting* Glucose Interpretive [...] of Diabetes Mellitus, Position Statement from the [place] [employer]. ??Diabetes Care, Volume 33, Supplement 1, Nov 2009 BUN 20(H) 8 - 18 mg/dL [facility] Creatinine 0.68(L) 0.70 - 1.20 mg/dL [facility] Sodium 139 135 - 145 mmol/L [facility] Potassium 4.4 3.5 - 5.0 mmol/L [facility] Comment: Please note: ??Patients with WBC >100,000 may have falsely elevated Potassium levels. ??For accurate Potassium quantification in these patients send serum separator tube (gold top) for subsequent determinations. ??Contact the Clinical Chemistry Laboratory if there are any questions. Chloride 99 98 - 107 mmol/L [facility] CO2 26 22 - 31 mmol/L [facility] Anion Gap 14 5 - 15 mmol/L [facility] Calcium 9.8 8.5 - 10.5 mg/dL [facility] Estimated GFR 105 >=60 mL/min/1. 73 m?? [facility] Comment: This patient? s estimated glomerular filtration rate (eGFR) is between 105 mL/min/1.73 m2 (patients with less muscle mass) and 122 mL/min/1.73 m2 (patients with more muscle mass) [...] and symptoms in addition to eGFR. Blood 09/06/2021 8:10 AM EDT 09/06/2021 8:28 AM EDT Narrative Resulting Agency Comment Spec In Lab Alla Richardson MD [place] [address] documented in this encounter Visit Diagnoses Diagnosis HFrEF (heart failure with reduced ejection fraction) Cardiomyopathy, unspecified type HFrEF (heart failure with reduced ejection fraction) Cardiomyopathy, unspecified type documented in this encounter Administered Medications Inactive Administered Medications - up to 3 most recent administrations Medication Order MAR Action Action Date Dose Rate Site heparin (porcine) (1,000 units/mL) injection ONCE PRN, Starting on Thu09/06/21 at 1207, Until Thu09/06/21 at 1501, Cath (Intra-Procedure), Routine Given 09/06/2021 12:07 PM EDT 6,000 Units iohexoL (Omnipaque) (350 mg/mL) injection solution ONCE PRN, Starting on Thu09/06/21 at 1217, Until Thu09/06/21 at 1501, Cath (Intra-Procedure), Routine Given 09/06/2021 12:17 PM EDT 65 mLs midazolam (pf) (Versed) (1 mg/mL) multi-dose injection ONCE PRN, Starting on Thu09/06/21 at 1152, Until Thu09/06/21 at 1501, Cath (Intra-Procedure), Routine Given 09/06/2021 11:52 AM EDT 1 mg morphine (10 mg/mL) injection 4 mg 4 mg, Intravenous, EVERY 1 HOUR PRN, 2 doses, Starting on Thu09/06/21 at 1150, Until Thu09/06/21 at 1703, 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, 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, Routine Given 09/06/2021 11:53 AM EDT 2 mg nitroGLYcerin 100 mcg/mL intracoronary dilution ONCE PRN, Starting on Thu09/06/21 at 1209, Until Thu09/06/21 at 1501, Cath (Intra-Procedure), Routine Given 09/06/2021 12:09 PM EDT 50 mcg sodium chloride 0.9 % (flush) (BD PosiFlush Normal Saline 0.9) flush 5 mL 5 mL, Intravenous, EVERY 12 HOURS, First dose on Thu09/06/21 at 0745, Until Discontinued, Cath (Day of Procedure), Routine Given 09/06/2021 7:45 AM EDT 5 mLs sodium chloride 0.9% infusion CONTINUOUS PRN, Starting on Thu09/06/21 at 1219, Until Thu09/06/21 at 1501, Intra-Operative (Intra-Procedure) New Bag 09/06/2021 12:19 PM EDT 100 mL/hr 100 mL/hr sodium chloride 0.9% infusion CONTINUOUS PRN, Starting on Thu09/06/21 at 1218, Until Thu09/06/21 at 1501, Cath (Intra-Procedure) New Bag 09/06/2021 12:18 PM EDT 100 mLs sodium chloride 0.9% infusion 100 mL/hr, Intravenous, CONTINUOUS, Starting on Thu09/06/21 at 1300, Until Thu09/06/21 at 1559, Recovery (Recovery-Hospital Unit) New Bag 09/06/2021 12:30 PM EDT 100 mL/hr 100 mL/hr documented in this encounter Active and Recently Administered Medications Times are shown in EDT. Scheduled Medication Order 09/04/2021 09/05/2021 09/06/2021 sodium chloride 0.9 % (flush) (BD PosiFlush Normal Saline 0.9) flush 5 mL (CANCELED) 5 mL, Intravenous, EVERY 12 HOURS, First dose on Thu09/06/21 at 0745, Until Discontinued, Cath (Day of Procedure), Routine 0745 (Given - Provid er: Shantel Sommer RN - Comment: 0.9 NS UP) Continuous Medication Order 09/04/2021 09/05/2021 09/06/2021 sodium chloride 0.9% infusion 100 mL/hr, Intravenous, CONTINUOUS, Starting on Thu09/06/21 at 1300, Until Thu09/06/21 at 1559, Recovery (Recovery-Hospital Unit) 1230 (New Bag - Prov ider: Ani Meade RN) PRN Medication Order 09/04/2021 09/05/2021 09/06/2021 heparin (porcine) (1,000 units/mL) injection (CANCELED) ONCE PRN, Starting on Thu09/06/21 at 1207, Until Thu09/06/21 at 1501, Cath (Intra-Procedure), Routine 1207 (Given - Provid er: Maria L Pickett RN) iohexoL (Omnipaque) (350 mg/mL) injection solution (CANCELED) ONCE PRN, Starting on Thu09/06/21 at 1217, Until Thu09/06/21 at 1501, Cath (Intra-Procedure), Routine 1217 (Given - Provid er: Justino Washburn MD) midazolam (pf) (Versed) (1 mg/mL) multi-dose injection (CANCELED) ONCE PRN, Starting on Thu09/06/21 at 1152, Until Thu09/06/21 at 1501, Cath (Intra-Procedure), Routine 115 (Given - Provid er: Maria L Pickett RN) morphine (10 mg/mL) injection 4 mg 4 mg, Intravenous, EVERY 1 HOUR PRN, 2 doses, Starting on Thu09/06/21 at 1150, Until Thu09/06/21 at 1703, 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, 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, Routine 1153 (Given - Provid er: Maria L Pickett RN) nitroGLYcerin 100 mcg/mL intracoronary dilution (CANCELED) ONCE PRN, Starting on Thu09/06/21 at 1209, Until Thu09/06/21 at 1501, Cath (Intra-Procedure), Routine 1209 (Given - Provid er: Justino Washburn MD) sodium chloride 0.9% infusion (CANCELED) CONTINUOUS PRN, Starting on Thu09/06/21 at 1219, Until Thu09/06/21 at 1501, Intra-Operative (Intra-Procedure) 1219 (New Bag - Prov ider: Viry Baker - Comment: for 3 hours) sodium chloride 0.9% infusion (CANCELED) CONTINUOUS PRN, Starting on Thu09/06/21 at 1218, Until Thu09/06/21 at 1501, Cath (Intra-Procedure) 1218 (New Bag - Prov ider: Viry Baker) documented in this encounter Care Teams Casing Machine Operator Relationship Specialty Start Date End Date Edie Ellis MD [address] [place] [address] PCP - General 10/15/10 documented as of this encounter
--- OUTSIDE RECORDS SUMMARY | 2024-06-03 00:25 | XMS_ITS | Encounter Summary ---
Author Organization [facility] Address [facility] [place] [address] Care Team Providers Care Bus Assistant Name Role Phone Edie Ellis MD Primary Care Provider [phone] Reason for Visit * Consultation (Routine) - Closed Specialty Diagnoses / Procedures Referred By Geraldine olmedo Referred To Contact Genetics Diagnoses Cardiomyopathy, unspecified type Kina Awad PA [facility] [place] [address] [address] Referral ID Status Reason Start Date Expiration Date V isits Requested Visits Authorized [id number] Closed Consult, Test & Treat 06/17/2021 06/17/2022 1 1 Encounter Details Date Type Department Care Team (Latest Contact Info) Description 10/07/2021 10:00 AM EST TH Visit (TeleHealth) Medical Genetics at [address] [phone] Jyoti Bay, [facility] [address] [place] [address] Dilated cardiomyopathy Social History Tobacco Use Types [...] as of this encounter Progress Notes * Sukhdeep Bayllketan Ruby, [facility] - 10/07/2021 10:00 AM EST Jammie has a history of dilated cardiomyopathy, which was diagnosed in 2012. The paternal history isalso significant for individuals with cardiomyopathy. Due to this history a genetic consultation was recommended to review the genetic testing options. A three generation pedigree was obtained at the visit today. The family history was significant formultiple paternal family members with cardiomyopathy(at least 5). Nonsyndromic isolated dilated cardiomyopathy (DCM) is characterized by left ventricular enlargementand systolic dysfunction, a reduction in the myocardial force of contraction. Genetic forms of DCM must be distinguished from other identifiable causes. After ischemic injury, other common forms of DCM include valvular and congenital heart disease, toxins, thyroid disease, inflammatory conditions, myocarditis, severe long-standing hypertension, and radiation. Most of these can be detected with a careful medical history, a targeted physical examination, results of laboratory testing, an echocardiogram, and (if indicated) coronary angiography to exclude coronary artery disease. After exclusion of all identifiable non-genetic causes, DCM is traditionally referred to as idiopathic dilated cardiomyopathy (IDC). When two or more closely related family members meet a formal diagnostic standard for IDC, the diagnosis of familial dilated cardiomyopathy (LONGTERM) is made. It usually takes many years for symptoms of familial dilated cardiomyopathy to cause health problems. They typically begin in mid-adulthood, but can occur at any time from infancy to late adulthood. Signs and symptoms of familial dilated cardiomyopathy can include cardiac arrhythmia, shortness of breath, extreme fatigue, fainting episodes, and swelling of the legs and feet. In some cases, the first sign of the disorder is sudden cardiac . The severity of the condition and age of onset varies among affected individuals, even in members of the same family. Mutations in more than 30 genes have been found to cause familial dilated cardiomyopathy. In 80 to 90 percent of cases, familial dilated cardiomyopathy is inherited in an autosomal dominant pattern.Mutations in one gene, TTN, account for approximately 20 percent of cases of familial dilated cardiomyopathy. In rare instances, this condition is inherited in an autosomal recessive pattern or X-linked. Many people with familial dilated cardiomyopathy do not have an identified mutation in any of theknown associated genes. The cause of the condition in these individuals is unknown When the gene in the family is not known we often recommend a panel for the most common associated genes. If Jammie would like to proceed with testing I would recommend the invitae cardiomyopathy and arrhythmia panel. I explained the available genetic testing options and addressed any questions or concerns. We discussed the benefits, risks, costs and limitations of the genetic testing. If Jammie s testing is positive then her children will have a 50% risk to inherit the gene and can have testing if desired. Other family members will also be at increased risk. If however the testing is negative this does not exclude the possibility that the condition is genetic in his family. We also reviewed the implications of a variant of uncertain significance. There are three different options for testing including testing for a panel billed through his insurance, self pay testing and a research program that is no cost. We also discussed that the testing may not be covered by insurance and they could be responsible for the cost of testing. Prior authorization can be attempted to determine if this would be a covered benefit. Alternatively I could arrange a self pay option or research testing and proceed with testing today. After informed consent Jammie elected genetic testing through the sponsored testing program. I sent her a consent form to sign and return by mail so we can proceed. I encouraged her to call with additional questions. This was a 30-minute consultation, of which 25 minutes of the visit were spent in [id number] discussions regarding the clinical diagnosis and care planning. Family agreed with the plans discussed. Jyoti Bay MS, [facility] Licensed Senior Genetic Counselor documented in this encounter Plan of Treatment Upcoming Encounters Date Type Department Care Team (Late st Contact Info) Description 07/09/2024 10:00 AM EDT Hospital Encounter Non-[place] [phone] Arrived Scheduled Referrals Name Type Priority Associated Diagnoses Orde r Schedule Referral to Genetics Outpatient Referral Routine Cardiomyopathy, unspecified type Ordered: 06/17/2021 documented as of this encounter Visit Diagnoses Diagnosis Dilated cardiomyopathy Other primary cardiomyopathies documented in this encounter Care Teams Bus Assistant Relationship Specialty Start Date End Date Edie Ellis MD [address] [facility] [address] [place] [address] PCP - General 10/15/10 documented as of this encounter
--- OUTSIDE RECORDS SUMMARY | 2024-06-03 00:25 | XMS_ITS | Encounter Summary ---
Author Organization [facility] Address [facility] [place] [address] Care Team Providers Care Binder Stripper Machine Name Role Phone Edie Ellis MD Primary Care Provider [phone] Encounter Details Date Type Department Care Team (Latest Contact Info) Description 09/06/2021 7:13 AM EDT - 09/06/2021 3:02 PM EDT Hospital Encounter [place] [address] Justino Washburn MD [facility] [place] [address] HFrEF (heart failure with reduced ejection fraction); Cardiomyopathy, unspecified type Discharge Disposition: Home Social History Tobacco Use [...] Sign Reading Time Taken Comments Blood Pressure 121/59 09/06/2021 2:21 PM EDT Pulse 96 09/06/2021 2:21 PM EDT Temperature 36.8 ??C (98.2 ??F) 09/06/2021 2:21 PM ED T Respiratory Rate 16 09/06/2021 2:21 PM EDT Oxygen Saturation 94% 09/06/2021 2:21 PM EDT Inhaled Oxygen Concentration - - [...] by your doctor, do not take any yqxq-koh-zohqybn medicinesor herbal preparations without first discussing this with your doctor or pharmacist. There is the possibility of side effects and interactions when these are combined. Follow Up Care Who to call with questions or problems If there are any questions or problems that you think might be related to your cardiac cath or angioplasty, contact the fitness director refrigeration repair supervisor by calling [facility] at . documented in this encounter Medications [...] a day 03/12/2015 naloxone (Narcan) 4 mg/actuation [place], Non-Aerosol Once 03/10/2019 magnesium oxide (MAG-OX) 400 [...] 2 diabetes mellitus without complication, unspecified whether jail insulin use Take 10 mg by mouth [...] of this encounter Progress Notes * Vianey Fernandez RN - 09/06/2021 2:55 PM EDT Pt [...] no audible murmur, gallop or rubs. No DONAVON JVD WNL Vasc: 2+ bilat radial. 2+ [...] QTC Calculated (Bezet) 469 ms Calculated P Greenway 9 degrees Calculated R [place] -5 degrees Calculated T [place] 18 degrees INTERPRETATION Normal sinus rhythm Low [...] from the original note were not included. Formerly [facility] [place] [address] [address] CORONARY ANGIOGRAM AND PERCUTANEOUS CORONARY INTERVENTION REPORT Patient: Jammie Gottlieb : 1975 MR number: [id number] Date of Service: 09/06/2021 Contract Coordinator: Justino Washburn MD Fellow: Femi Koroma MD [...] obtained. The patient was brought to the director geophysical laboratory and placed onthe table. Time out was [...] no procedural complications. ??? I provided direct ssdr-ob-sxhw monitoring of conscious sedation which was administered [...] AM EDT Hospital Encounter Non-Invasive [place] [address] Arrived documented as of this [...] Modality Other Narrative 09/06/2021 12:54 PM EDT ?[facility] ? Cardiac Catheterization/Intervention Report ? Patient Name: Jammie Gottlieb. ? Procedure Date: 09/06/2021 ? A #: [id number] ? Primary Physician: Washburn, Justino P ? Case #: [id number] ? File Name: [id number] ? Catheterization Order Number: [id number] ? [facility] ? Final Report [place], [place] ? Patient Name: ? Jammie Gottlieb ? ID#: ?[id number] ? : ?1975 ? Procedure Date: ? September 06, 2021 ? Case #: ? [id number] ? Room: ? 1 ? Case Physician: ? Justino Washburn M.D. ?Start: ?11:54 ?Fellow: ? Randy Koroma M.D. ?Admission: ??09/06/2021 ? Referring ? Betina Gant. ? Physicians: ?Alla Juárez M.D. ? Procedures: ?* Coronary Angiography ?* Left Heart Catheterization ?* Right Heart Catheterization ?* Oximetry ? History ?Jammie SmileyNing Gottlieb is a 46 year old woman. [...] procedure was Elective. The indication for ?the director geophysical laboratory visit is cardiomyopathy. Chest pain symptom assessment [...] Finalized: 09/06/2021 ??12:46 ? Procedure Note Justino Washburn MD - 09/06/2021 [facility] Cardiac Catheterization/Intervention Report Patient Name: Jammie Gottlieb Procedure Date: 09/06/2021 A #: [id number] Primary Physician: Justino Washburn Case #: [id number] File Name: [id number] Catheterization Order Number: [id number] [facility] FinalReport [place], [place] Patient Name: Jammie Gottlieb ID#:[id number] :1975 Procedure Date: September 06, 2021 Case #: [id number] Room: 1 Case Physician: Justino Washburn M.D. Start: 11:54 Fellow: Randy Koroma M.D. Admission:09/06/2021 Referring Sanchez Gant Physicians: Alla Juárez M.D. Procedures: * Coronary Angiography * Left [...] was designated as ASA Class II. The [facility] clinical frailtyscale is 3: Managing Well. Diagnostic Tests: Prior Coronary Angiography: LV ejection fraction within 6 months is 41%. Medications Prior to Procedure: Angiotensin Converting Enzyme Inhibitor, Aspirin, Beta Blockerand Statin. Indications for Diagnostic Cath: The priority of the diagnostic procedure was Elective. Theindication for the director geophysical laboratory visit is cardiomyopathy. Chest pain symptom assessmentwas: [...] * POCT Glucose (09/06/2021 8:23 AM EDT) [facility] POC Glucose 109 65 - 199 mg/dL [facility] Comment: Supplemental ranges: <140 mg/dL before meals <180 mg/dL all other times of the day Blood 09/06/2021 8:23 AM EDT 09/06/2021 8:23 AM EDT Justino Washburn MD POINT OF CARE TEST O RDERABLES [facility] [place] [address] * (ABNORMAL) Differential, Automated (09/06/2021 8:10 AM EDT) [facility] Neutrophils % 65.0 % [facility] Neutr Abs (ANC) 7.22(H) 1.70 - 6.10 x10(3)/mc L [facility] Lymphocytes % 27.0 % [facility] Lymphocytes Abs 3.0 0.9 - 3.2 x10(3)/mc L [facility] Monocytes % 5.0 % [facility] Monocyte Abs 0.6 0.3 - 0.9 x10(3)/mc L [facility] Eosinophils % 1.9 % [facility] Eosinophils Abs 0.2 0.0 - 0.4 x10(3)/mc L [facility] Basophils % 0.7 % [facility] Basophils Abs 0.1 0.0 - 0.1 x10(3)/[facility] Immature Gran % 0.40 % [facility] Comment: Immature granulocytes(IG's)percentage and absolute count will include metamyelocytes, myelocytes, and promyelocytes. Blood smears from CBCs yielding IG's will be scanned manually for concordance. If this scan disagrees with the automated IG or if promyelocytes are noted, a manual differential will be performed. Rylee Gran Abs 0.04 0.00 - 0.04 x10(3)/[facility] Blood 09/06/2021 8:10 AM EDT 09/06/2021 8:28 AM EDT Narrative Resulting Agency Comment Spec In Lab Kina RODRÍGUEZ HEMATOLOGY ORDERABLE S [facility] [place] [address] * (ABNORMAL) Hemogram (09/06/2021 8:10 AM EDT) WBC 11.1(H) 4.0 - 9.5 x10(3)/[facility] RBC 5.06 4.00 - 5.21 x10(6)/[facility] Hemoglobin 14.8 11.7 - 15.5 g/dL [facility] Hematocrit 45.1 35.7 - 45.8 % [facility] MCV 89.1 82.6 - 94.4 fL [facility] MCH 29.2 27.1 - 32.0 pg [facility] MCHC 32.8 31.7 - 35.0 g/dL [facility] Platelets 255 145 - 357 x10(3)/[facility] RDWSD 44.4 37.0 - 46.0 fL [facility] RDWCV 13.6 11.5 - 14.1 % [facility] MPV 10.3 7.6 - 12.9 fL [facility] nRBC % Auto 0.0 % [facility] nRBC Abs Auto 0.000 0.000 - 0.000 x10(3)/mcL [facility] Blood 09/06/2021 8:10 AM EDT 09/06/2021 8:28 AM EDT Narrative Resulting Agency Comment Spec In Lab Kina RODRÍGUEZ HEMATOLOGY ORDERABLE S Performing Organization Address [facility] Co de Phone Number [facility] [place] [address] * Prothrombin Time (09/06/2021 8:10 AM EDT) PT 11.8 9.4 - 12.5 sec [facility] INR 1.0 [facility] Comment: An INR <2.0 indicates [...] MD HEMATOLOGY O RDERABLES Performing Organization Address City/[facility]/ZIP Co de Phone Number [facility] [place] [address] * (ABNORMAL) BMP w/fasting Glucose (09/06/2021 8:10 AM EDT) Glucose Fasting 112(H) 65 - 99 mg/dL [facility] Comment: ?Fasting* Glucose Interpretive Criteria [...] of Diabetes Mellitus, Position Statement from the [employer]. ??Diabetes Care, Volume 33, Supplement 1, Nov 2009 BUN 20(H) 8 - 18 mg/dL [facility] Creatinine 0.68(L) 0.70 - 1.20 mg/dL [facility] Sodium 139 135 - 145 mmol/L [facility] Potassium 4.4 3.5 - 5.0 mmol/L [facility] Comment: Please note: ??Patients with WBC >100,000 may have falsely elevated Potassium levels. ??For accurate Potassium quantification in these patients send serum separator tube (gold top) for subsequent determinations. ??Contact the Clinical Chemistry Laboratory if there are any questions. Chloride 99 98 - 107 mmol/L [facility] CO2 26 22 - 31 mmol/L [facility] Anion Gap 14 5 - 15 mmol/L [facility] Calcium 9.8 8.5 - 10.5 mg/dL [facility] Estimated GFR 105 >=60 mL/min/1. 73 m?? [facility] Comment: This patient? s estimated [...] Lab Alla Richardson MD CHEMISTRY OR DERABLES [facility] [place] [address] documented in this encounter Visit Diagnoses Diagnosis HFrEF (heart failure with reduced ejection fraction) Cardiomyopathy, unspecified type HFrEF (heart failure with reduced ejection fraction) Cardiomyopathy, unspecified type documented in this encounter Administered Medications Inactive Administered Medications - up to 3 most recent administrations Medication Order MAR Action Action Date Dose Rate Site morphine (10 mg/mL) injection 4 mg 4 mg, Intravenous, EVERY 1 HOUR PRN, 2 doses, Starting on Thu09/06/21 at 1150, Until Thu09/06/21 at 1703, Pain, while in director geophysical laboratory, Routine Given 09/06/2021 11:53 AM EDT 2 mg sodium chloride 0.9 % (flush) (BD PosiFlush Normal Saline 0.9) flush 5 mL 5 mL, Intravenous, EVERY 12 HOURS, First dose on Thu09/06/21 at 0745, Until Discontinued, Cath (Day of Procedure), Routine Given 09/06/2021 7:45 AM EDT 5 mLs sodium chloride 0.9% infusion 100 mL/hr, [...] Until Thu09/06/21 at 1501, Cath (Intra-Procedure), Routine 1152 (Given - Provid er: Maria L Pickett RN) morphine (10 mg/mL) injection 4 mg 4 mg, Intravenous, EVERY 1 HOUR PRN, 2 doses, Starting on Thu09/06/21 at 1150, Until Thu09/06/21 at 1703, Pain, while in director geophysical laboratory, Routine 1153 (Given - Provid er: Maria [...] Baker) documented in this encounter Care Teams Binder Stripper Machine Relationship Specialty Start Date End Date Edie Ellis MD [facility] [address] [place] [address] PCP - General 10/15/10 documented as of this encounter
--- OUTSIDE RECORDS SUMMARY | 2024-06-03 00:25 | XMS_ITS | Encounter Summary ---
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 Muscle weakness Kina Awad PA [facility] [place] [address] [facility] Neurology [address] [place] [id number] Referral ID Status Reason Start Date Expiration Date V isits Requested Visits Authorized [id number] Closed Consult, Test & Treat 01/02/2022 01/02/2023 1 1 Encounter Details Date Type Department Care Team (Late st Contact Info) Description 01/02/2022 11:30 AM EST Office Visit Cardiology at [address] [phone] Alla Nash MD [facility] [place] [address] Kina Awad PA [facility] [place] [address] HFrEF (heart failure with reduced ejection fraction); 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 [facility] Section of Advanced Heart Failure Cardiology [facility] [place] [address] OUTPATIENT VISIT DATE: 06/09/21 OUTPATIENT VISIT TYPE: Follow up OV PRIMARY CARE PHYSICIAN: Edie Ellis MD REFERRING PHYSICIAN: None HISTORY OF PRESENT ILLNESS: Jammie Gottlieb is a 46 y.o. female referred by Jeremiah Eid MD for evaluation of nonischemic cardiomyopathy and request for referral for genetic testing. Index presentation in 2012 with mildly dilated LV and EF 40%. LVEF 50-55% on TTE in 2019. Most recently 41% by cMR performed in April 2021. Several possible etiologies identified at that time including peripartum where was complicated by HTN and DM and an echocardiogram showed a low normalLVEF months prior to giving and viral syndrome x2 prior to diagnosis as well as reported family h/o CMP in multiple family members on her father's side (no genetic testing completed). Other medical conditions include: HTN, DM, syncope, chronic low back pain s/p lumbar spine surgery,migraines, depression, fatty liver. Last syncopal event Aug 2020, admitted to [facility]. Loss of urine. Placed on Keppra, released [...] palpitations, overall unchanged and notably rare. Recommended R/C to further evaluate. Non-obstructive disease seen. See below for report. Genetic counseling completed. 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 She has 3 children,so far 1 daughter tested positive, she is waiting for results on her son. She states that she has has serious muscle problems in that she states she feels like she can't vegetable picker her arms or move her neck well. This used to present as aches and pains and LBP with some joint pain. More recently, c/o muscle weakness. Of note, plans to complete a sleep study. Patient Active Problem List Diagnosis ??? T2DM [...] by mouth daily. ??? Lancets Misc by [facility]Non-Drug; Combo Route) route daily. ??? Miscellaneous Medical Supply Mis 1 strip by [facility]Non-Drug; Combo Route) route daily. ??? clonAZEpam (KLONOPIN) [...] and psychiatric) with exceptions below. PHYSICAL EXAMINATION: VITALS: Wt Readings from Last 3 Encounters: 03/30/14 (!) 121.2 kg (267 lb 4.8 oz) 05/19/11 (!) 106.1 kg (234 lb) 03/28/11 (!) 106.6 kg (235 lb) Temp Readings from Last 3 Encounters: No data found for Temp BP Readings from Last 3 Encounters: 06/04/12 (!) 146/94 12/08/11 (!) 134/96 05/19/11 121/83 Pulse Readings from Last 3 Encounters: 06/04/12 82 12/08/11 99 05/19/11 107 Patient Vitals for the past 24 hrs: Pulse BP SpO2 01/02/22 1142 (!) 107 130/85 98 % GENERAL: Pleasant and in no acute distress HEENT: PERRL, anicteric sclerae, no injection. NECK: Supple with full ROM. No LAD. Trachea midline. JVP visualized and is not elevated. CARDIAC: No abnormal precordial movements. RRR with normal S1 and S2. No murmurs, rub, or gallops noted. VASCULAR: Normal carotid upstroke, no bruits. Normal radial pulse b/l. Normal DP and PT pulses b/l. PULMONARY: Symmetrical expansion. Clear lungs bilaterally. ABDOMEN: Positive bowel sounds. Soft, NT, ND. EXTREMITY: Warm and well perfused. No clubing, cyanosis. No edema. No erythema. SKIN: No concerning lesions noted on areas of skin visualized during exam. Tattoos. NEUROLOGICAL: Alert and oriented to person, place, date PSYCH: Mood appropriate. LABS: Recent Results (from the past 24 hour(s)) CK Result Value Ref Range CK, Total 32 0 - 160 unit/L pro-Brain Natriuretic Peptide Result Value Ref Range ProBNP 140 (H) <=124 pg/mL Basic Metabolic Panel (non-fasting) Result Value Ref Range Glucose Lvl 209 (H) 65 - 199 mg/dL BUN 10 8 - 18 mg/dL Creatinine 0.64 (L) 0.70 - 1.20 mg/dL Sodium 137 135 - 145 mmol/L Potassium 4.4 3.5 - 5.0 mmol/L Chloride 101 98 - 107 mmol/L CO2 23 22 - 31 mmol/L Anion Gap 13 5 - 15 mmol/L Calcium 8.7 8.5 - 10.5 mg/dL Estimated GFR 107 >=60 mL/min/1.73 m?? CARDIOLOGY RELEVANT STUDIES: CXR EKG Holter monitor Echo and JACQUES 2012 LVEF 40%. LVEDD [...] Clinical summary ?? A Likely Pathogenic variant, [id number] ([id number]*), was identified in TTN. The TTN gene is associated with autosomal dominant dilated cardiomyopathy (DCM) (MedGen UID: 2880).Additionally, the TTN gene is associated with a diverse group of disorders affecting skeletal muscles, including autosomal dominant tibial muscular dystrophy (TMD) (MedGen UID: 813503) and autosomal recessive limb- girdle muscular dystrophy type 2J (LGMD2J) (MedGen UID: 290127), autosomal recessive centronuclear myopathy (CNM) (PMID: 45131608), and autosomal dominant hereditary myopathy with earlyrespiratory failure (HMERF)(MedGen UID: 154208). Additional TTN-related conditions have also been reported (OMIM: 904566).This result is consistent with a predisposition to, or diagnosis of, autosomal dominant TTN-related conditions. TTN is associated with a clinically heterogeneous group of disorders, collectively known as the titinopathies, which can have distinct and/or overlapping features (PMID: 88411475, 84084804, 66787501). Correlation with a particular condition should include a review of the Variant. Details section of the report below. Pathogenic roef-ow-kzpeayoh variants in the A-band are associated with an increased risk of autosomal dominant DCM, although associations with other types of cardiomyopathy have been suggested (PMID: 63353518, 99910471). DCM is defined by left ventricular dilation and systolic dysfunction. Symptoms include palpitations, dizziness, syncope, chestpain, shortness of breath, heart failure and in some cases sudden cardiac arrest/ (PMID: 46182879, 77730946). For more information about diagnosis and management of dilated cardiomyopathy, please visit [employer]'s website at [email or web address]. Some pathogenic missense variants in exon 343 ofthe A band are only known to be associated with HMERF. HMERF is an early adult-onsetdisorder characterized by proximal and distal skeletal muscle weakness of the upper and lower extremities and respiratory insufficiency (PMID: 66092096, 50195243). Muscle histopathology frequentlyiden tifies inclusion bodies and rimmed vacuoles (PMID: 36959908). Disease progression often includes loss of the ability to walk and the need for permanent ventilatory support relatively early in life (PMID: 49181655). Clinical, MRI, and histopathology similarities exist between HMERF and myofibrillar myopathies (PMID: 63255828). Pathogenic variants in the A-band may also be associated with autosomalrecessive neuromusculardisorders, including centronuclear myopathy and limb-girdle muscular dystrophy (PMID: 50956982, 03416917). Biological relatives have a chance of being at risk for autosomal dominant TTN- related conditions and have a chance of being carriers for autosomal recessive TTN-related conditions. Those at risk should consider testing. IMPRESSION / PLAN: Jammie Gottlieb is a 46 y.o. female with history as above, seen with the following impression and plan: L/RHC completed. Non-obstructive disease on cath. Low filling pressures with evidence of mild PH. Genetic testing completed - TTN gene identified 1. 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 Chronic systolic CHF, HFmrEF; well compensated, euvolemic on exam today NYHA functional class ACC/AHA Stage Dry Weight NYHA class II-IIIb; ACC/AHA Stage C Dry Weight 216 lbs Beta Peggy and/or Ivabradine Metoprolol succinate 50 mg daily REEMA or ARB or Entresto Losartan 25 mg daily Aldosterone antagonist Discontinued possibly in the setting of MACY With LVEF >50% currently not indicated Diuretic Stopped Lasix 2/2 intravasculation volume depletion ICD or HEALTH ECONOMIST-D if indicated Not indicated with LVEF >35% Other considerations Farxiga 10 mg daily stopped 2/2 recurrent yeast infections. 3. HTN BP: (130)/(85) Well controlled 4. DM Trulicity Metformin 5. HLD - Low HDL, high TG On Crestor with LDL of 60 05/2021 Moderate elevation in TG, consider icosapent ethyl Update lipid profile at next visit for decision making RECOMMENDATIONS: No change to current medical regimen Referral to neurology to evaluate for conditions like muscular dystrophy, conditions associated with TTN gene variant Will consider evaluation at [facility] with the genetics/cardiology team COUNSELING: The signs and symptoms to be [...] FOLLOW UP: 6 months in clinic with labs Kina Awad PA-C documented in this encounter Plan of Treatment Upcoming Encounters Date Type Department Care Team (Late st Contact Info) Description 07/09/2024 10:00 AM EDT Hospital Encounter Non-[place] [address] Arrived Scheduled Referrals Name Type Priority Associated Diagnoses Orde r Schedule Referral to Neurology Outpatient Referral Routine 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 Muscle weakness Ordered: 01/02/2022 documented as of this encounter Results * CK (01/02/2022 10:43 AM EST) Pathologist [facility] CK, Total 32 0 - 160 unit/L [facility] Blood 01/02/2022 10:4 3 AM EST 01/02/2022 10:52 AM EST Narrative Resulting Agency Comment Spec In Lab Alla Richardson MD CHEMISTRY OR DERABLES [facility] [place] [address] * (ABNORMAL) pro-Brain Natriuretic Peptide (01/02/2022 10:43 AM EST) ProBNP 140(H) <=124 pg/mL [facility] Blood 01/02/2022 10:4 3 AM EST 01/02/2022 10:52 AM EST Narrative Resulting Agency Comment Spec In Lab Alla Richardson MD CHEMISTRY OR DERABLES [facility] [place] [address] * (ABNORMAL) Basic Metabolic Panel (non-fasting) (01/02/2022 10:43 AM EST) Glucose Lvl 209(H) 65 - 199 mg/dL [facility] Comment:Diabetes: >=200 mg/d L plus symptoms BUN 10 8 - 18 mg/dL [facility] Creatinine 0.64(L) 0.70 - 1.20 mg/dL [facility] Sodium 137 135 - 145 mmol/L [facility] Potassium 4.4 3.5 - 5.0 mmol/L [facility] Comment: Please note: ??Patients with WBC >100,000 may have falsely elevated Potassium levels. ??For accurate Potassium quantification in these patients send serum separator tube (gold top) for subsequent determinations. ??Contact the Clinical Chemistry Laboratory if there are any questions. Chloride 101 98 - 107 mmol/L [facility] CO2 23 22 - 31 mmol/L [facility] Anion Gap 13 5 - 15 mmol/L [facility] Calcium 8.7 8.5 - 10.5 mg/dL [facility] Estimated GFR 107 >=60 mL/min/1. 73 m?? [facility] Comment: This patient? 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
--- OUTSIDE RECORDS SUMMARY | 2024-06-03 00:25 | XMS_ITS | Encounter Summary ---
[place] [address] Care Team Providers Care Online Marketing Analyst Name Role Phone Edie Ellis MD Primary Care Provider [phone] Encounter Details Date Type Department Care Team (Latest Contact Info) Description 10/25/2021 10:50 AM EST - 10/25/2021 11:59 PM EST Hospital [place] [address] Discharge Disposition: Home Social History Tobacco Use [...] a day 03/12/2015 naloxone (Narcan) 4 mg/actuation [place], Non-Aerosol Once 03/10/2019 magnesium oxide (MAG-OX) 400 [...] 2 diabetes mellitus without complication, unspecified whether prison insulin use Take 10 mg by mouth [...] needed. 01/02/2022 documented as of this encounter Plan of Treatment Upcoming Encounters Date Type Department Care Team (Late st Contact Info) Description 07/09/2024 10:00 AM EDT Hospital Encounter Non[place] [address] Arrived documented as of this encounter Procedures Procedure Name Priority Date/Time Associated Diagnosis Comments [facility] Routine 10/25/2021 1:52 PM EST documented in this encounter Results * [facility] (10/25/2021 1:52 PM EST) [facility] Send[facility] See Note [facility] Comment: The ordered test is: Cardiomyopathy and Arrhythmia Panel [place], [address] [place] [address] [place] [address] See Scanned Report. Buccal Swab Other / Unknown 10/25/2021 1 :52 PM EST 11/11/2021 1:53 PM EST Nora Fernandes MD CHEMISTRY ORDERABLE S [facility] [place] [address] documented in this encounter Visit Diagnoses Not on filedocumented in this encounter Care Teams Online Marketing Analyst Relationship Specialty Start Date End Date Edie Ellis MD [address] [place] [address] PCP - General 10/15/10 documented as of this encounter
--- OUTSIDE RECORDS SUMMARY | 2024-06-03 00:25 | XMS_ITS | Encounter Summary ---
Author Organization [facility] [place] [address] Care Team Providers Care Portrait Photographer Name Role Phone Edie Ellis MD Primary Care Provider [phone] Encounter Details Date Type Department Care Team (Latest Contact Info) Description 08/16/2021 9:40 AM EDT Laboratory Appointment Lab [address] [place] [phone] HFrEF (heart failure with reduced ejection fraction) Social History Tobacco Use Types Packs/Day Years Used Date Smoking Tobacco: Every Day Cigarettes 1 3 Started: 06/03/2007; Last attempted to quit: 06/03/2010 Smokeless Tobacco: Never Alcohol Use Standard Drinks/Week Comments No 0 (1 standard drink = 0.6 oz pur e alcohol) Sex and Gender Information Value Date Recorded Sex Assigned at Female 10/05/2021 11:32 AM EST Gender Identity Female 10/05/2021 11:32 AM EST Sexual Orientation Straight 10/05/2021 11 :32 AM EST documented as of this encounter Plan of Treatment Upcoming Encounters Date Type Department Care Team (Late st Contact Info) Description 07/09/2024 10:00 AM EDT Hospital Encounter Non-[place] [phone] Arrived documented as of this encounter Procedures Procedure Name Priority Date/Time Associated Diagnosis Comments [facility] VENIPUNCTURE Routine 08/16/2021 9:45 AM EDT HFrEF (heart failure with reduced ejection fraction) BASIC METABOLIC PANEL (NON-FASTING) Routine 08/16/2021 9:45 AM EDT HFrEF (heart failure with reduced ejection fraction) documented in this encounter Results * (ABNORMAL) Basic Metabolic Panel (non-fasting) (08/16/2021 9:45 AM EDT) Glucose Lvl 122 65 - 199 mg/dL [facility] Comment:Diabetes: >=200 mg/d L plus symptoms BUN 12 8 - 18 mg/dL [facility] Creatinine 0.66(L) 0.70 - 1.20 mg/dL [facility] Sodium 135 135 - 145 mmol/L [facility] Potassium 4.6 3.5 - 5.0 mmol/L [facility] Comment: Please note: ??Patients with WBC >100,000 may have falsely elevated Potassium levels. ??For accurate Potassium quantification in these patients send serum separator tube (gold top) for subsequent determinations. ??Contact the Clinical Chemistry Laboratory if there are any questions. Chloride 98 98 - 107 mmol/L [facility] CO2 28 22 - 31 mmol/L [facility] Anion Gap 9 5 - 15 mmol/L [facility] Calcium 9.5 8.5 - 10.5 mg/dL [facility] Estimated GFR 106 >=60 mL/min/1. 73 m?? [facility] Comment: This patient? s estimated glomerular filtration rate (eGFR) is between 106 mL/min/1.73 m2 (patients with less muscle mass) and 123 mL/min/1.73 m2 (patients with more muscle mass) [...] and symptoms in addition to eGFR. Blood 08/16/2021 9:45 AM EDT 08/16/2021 10:01 AM EDT Narrative Resulting Agency Comment Spec In Lab Alla Richardson MD CHEMISTRY OR DERABLES Performing Organization Address City/[facility]/ZIP Co de Phone Number [facility] [place] [address] * pro-Brain Natriuretic Peptide (08/16/2021 9:45 AM EDT) ProBNP 34 <=124 pg/mL [facility] Blood 08/16/2021 9:45 AM EDT 08/16/2021 10:01 AM EDT Narrative Resulting Agency Comment Spec In Lab Alla Richardson MD CHEMISTRY OR DERABLES Performing Organization Address [facility] [place] [address] documented in this encounter Visit Diagnoses Diagnosis HFrEF (heart failure with reduced ejection fraction) documented in this encounter Care Teams Portrait Photographer Relationship Specialty Start Date End Date Edie Ellis MD [facility] [address] [place] [address] PCP - General 10/15/10 documented as of this encounter
--- OUTSIDE RECORDS SUMMARY | 2024-06-03 00:25 | XMS_ITS | Encounter Summary ---
Author Organization [facility] Address [facility] [place] [address] Care Team Providers Care Medical Office Receptionist Name Role Phone Edie Ellis MD Primary Care Provider [phone] Reason for Referral * Diagnostic Test (Routine) - Closed Specialty Diagnoses / Procedures Referred By Contac t Referred To Contact Cardiology Diagnoses HFrEF (heart failure with reduced ejection fraction) Pulmonary hypertension Procedures Echocardiogram Transthoracic([facility] or [facility]) Kina Awad PA [facility] [place] [address] [facility] [place] [address] Referral ID Status Reason Start Date Expiration Date V isits Requested Visits Authorized [id number] Closed Specialty Service Requested 09/09/2021 09/09/2022 1 1 Encounter Details Date Type Department Care Team (Late st Contact Info) Description 09/06/2021 10:40 AM EDT Office Visit Cardiology at [address] [address] Kina Awad PA [facility] [place] [address] HFrEF (heart failure with reduced ejection fraction); Pulmonary hypertension Social History Tobacco Use Types Packs/Day Years [...] Progress Notes * Kina Awad PA - 09/06/2021 10:40 AM EDT Images from the original note were not included. [facility] Section of Advanced Heart Failure Cardiology [facility] [place] Dempsey [id number] OUTPATIENT VISIT DATE: 06/09/21 OUTPATIENT VISIT TYPE: [...] syncopal event Aug 2020, admitted to [facility]. Loss of urine. Placed on Keppra, released [...] flight of stairs. H/o cardiac cath in 2013 showing non-obstructive disease. Long history of palpitations, overall unchanged and notably rare. Recommended /[facility] to further evaluate. Upcoming appointment with a genetic counselor. Patient Active Problem List Diagnosis ??? T2DM [...] by mouth daily. ??? Lancets Misc by [facility].(Non-Drug; Combo Route) route daily. ??? Miscellaneous Medical Supply Misc 1 strip by [facility].(Non-Drug; Combo Route) route daily. ??? clonAZEpam (KLONOPIN) [...] Only SCD in paternal GF 3 children 25, 21, 11 - no screening TTE as of yet ALLERGIES: Allergies Allergen Reactions ??? Penicillins Anaphylaxis [...] Encounters: 06/04/12 82 12/08/11 99 05/19/11 107 No data found. GENERAL: Pleasant and in no acute distress [...] b/l. PULMONARY: Symmetrical expansion. Clear lungs bilaterally. + Upper airway wheeze. ABDOMEN: Obese. Positive bowel sounds. Soft, NT, ND. No rebound or guarding. No masses or hepatosplenomegaly. EXTREMITY: Warm and well perfused. No clubing, cyanosis. No edema. No erythema. SKIN: No concerning lesions noted on areas of skin visualized during exam. Tattoos. NEUROLOGICAL: Alert and oriented to person, place, date. Normal strength. Normal sensation. PSYCH: Mood appropriate. LABS: Recent Results (from the past 24 hour(s)) BMP w/fasting Glucose Result Value Ref Range Glucose Fasting 112 (H) 65 - 99 mg/dL BUN 20 (H) 8 - 18 mg/dL Creatinine 0.68 (L) 0.70 - 1.20 mg/dL Sodium 139 135 - 145 mmol/L Potassium 4.4 3.5 - 5.0 mmol/L Chloride 99 98 - 107 mmol/L CO2 26 22 - 31 mmol/L Anion Gap 14 5 - 15 mmol/L Calcium 9.8 8.5 - 10.5 mg/dL Estimated GFR 105 >=60 mL/min/1.73 m?? Prothrombin Time Result Value Ref Range PT 11.8 9.4 - 12.5 sec INR 1.0 Hemogram Result Value Ref Range WBC 11.1 (H) 4.0 - 9.5 x10(3)/mcL RBC 5.06 4.00 - 5.21 x10(6)/mcL Hemoglobin 14.8 11.7 - 15.5 g/dL Hematocrit 45.1 35.7 - 45.8 % MCV 89.1 82.6 - 94.4 fL MCH 29.2 27.1 - 32.0 pg MCHC 32.8 31.7 - 35.0 g/dL Platelets 255 145 - 357 x10(3)/mcL RDWSD 44.4 37.0 - 46.0 fL RDWCV 13.6 11.5 - 14.1 % MPV 10.3 7.6 - 12.9 fL nRBC % Auto 0.0 % nRBC Abs Auto 0.000 0.000 - 0.000 x10(3)/mcL Differential, Automated Result Value Ref Range Neutrophils % 65.0 % Neutr Abs (ANC) 7.22 (H) 1.70 - 6.10 x10(3)/mcL Lymphocytes % 27.0 % Lymphocytes Abs 3.0 0.9 - 3.2 x10(3)/mcL Monocytes % 5.0 % Monocyte Abs 0.6 0.3 - 0.9 x10(3)/mcL Eosinophils % 1.9 % Eosinophils Abs 0.2 0.0 - 0.4 x10(3)/mcL Basophils % 0.7 % Basophils Abs 0.1 0.0 - 0.1 x10(3)/mcL Immature Gran % 0.40 % Rylee Gran Abs 0.04 0.00 - 0.04 x10(3)/mcL POCT Glucose Result Value Ref Range POC Glucose 109 65 - 199 mg/dL CARDIOLOGY RELEVANT STUDIES: CXR EKG Holter monitor Echo and JACQUES 2012 LVEF 40%. LVEDD 5.2 08/2020 LVEF 50-55%. Mild global HK. RV OK. Stress test Coronary Angiography 08/2013 Mild diffuse [...] of the spleen. CPET PFT's Sleep Study PH Risk Factor Review Risk Factor Yes No Comments Family hx of PH like illness Anorexic drug use Cocaine use Prior thromboembolism Chronic Lung disease Symptoms of sleep apnea Connective tissue disease Raynaud's phenomenon Chronic liver lisease Congenital heart disease Malignancy Splenectomy Hemoglobinopathy Myeloproliferative disorder Hereditary Hemorrhaghic Telectangasia Thyroid disease Parasitic infection Chronic high altitude I thoroughly reviewed the patient's current clinical status, the pertinent laboratory and recent cardiovascular or imaging studies, and the active management plan. IMPRESSION / PLAN: Jammie Gottlieb is a 46 y.o. female with history as above, seen with the following impression and plan: Patient for L/RHC today. Non-obstructive disease on cath. Low filling pressures with evidence of mild PH. 1. 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 Chronic systolic CHF, HFmrEF; well compensated, euvolemic on exam today NYHA functional class ACC/AHA Stage Dry Weight NYHA class II-IIIb; ACC/AHA Stage C Dry Weight 207 lbs Beta Peggy and/or Ivabradine Metoprolol succinate 50 mg daily REEMA or ARB or Entresto Lisinopril 5 mg daily Aldosterone antagonist Discontinued possibly in the setting of MACY Diuretic Stop Lasix today ICD or COTTON CHOPPER-D if indicated Not indicated with LVEF >35% Other considerations Farxiga 10 mg daily Genetics appt in Sep 3. HTN BP: (117-119)/(79-85) Well controlled 4. DM Lisinopril 5 mg daily Farxiga 10 mg daily 5. HLD - Low HDL, high TG On Crestor with LDL of 60 Moderate elevation in TG, consider icosapent ethyl RECOMMENDATIONS: Stop Lasix and use PRN. Recommend additional work up for PH. Repeat TTE, get PFTs additional labs to be completed and consult with PH team. COUNSELING: The signs and symptoms to be [...] When to call our office FOLLOW UP: Follow up visit with TTE, labs and PFTs. Kina Awad PA-C documented in this encounter Plan of Treatment Upcoming Encounters Date Type Department Care Team (Late st Contact Info) Description 07/09/2024 10:00 AM EDT Hospital Encounter Non-[place] [address] Arrived documented as of this encounter Results * ECHO COMPLETE (01/02/2022 10:18 AM EST) EF 52 HEARTLAB SYSTEM Anatomical Region Laterality Modality Other 01/02/2022 Narrative 01/02/2022 10:32 AM EST Procedure: ?Transthoracic Echocardiogram Patient: ?CARSON MCCANN A ? (Age): 1975(46y) Med Rec#: ? [id number] ?Sex: ?F ? Site Loc: ? [facility] ?Ht / Wt: ??163(cm)/94(kg) Pt. Loc: ?Echo Lab ?BSA: ?1.99 Study Date: ?? 01/02/2022 ?Pt. Type: Outpatient Tape: ? Referring: PRECIOUS Reading: Jesse Luevanon Cam ??([id number]) Flying Ii Instructor: Wil Cuellar RDCS, FASE Diagnosis: *Cardiomyopathy, unspecified (I42.9) Rhythm: ? Tachycardia BP: ? 120/62 HR: ? 110 SUMMARY: 1. The left ventricular chamber size is normal. Global left ventricular systolic function is very mildly reduced. The quantitative left ventricular ejection fraction by biplane Mobley's method is 52%. Global longitudinal strain is abnormal at -11%. 2. The right ventricle is normal in size. Right ventricular global systolic function is normal. Pulmonary artery hypertension could not be assessed due to inadequate tricuspid regurgitation jet. 3. There is no valve disease. 4. See remainder of report for additional findings. There is no prior study for comparison. Findings ? : Study Quality: ? Adequate Left Ventricle: ? The left ventricular chamber size is normal. ?Left ventricular wall thickness is normal. ?Global left ventricular systolic function is mildly reduced. GLS -11.0%(GE) ?The quantitative left ventricular ejection fraction by biplane Mobley's method is 52%. ?There is diffuse hypokinesis present. ?Assessment of diastolic function is indeterminate. E-A fusion due to high heart rates limits sensitivity of diastolic evaluation. ?Doppler assessment is consistent with normal left sided filling pressure. Left Atrium: ? The left atrium is normal in size. Right Ventricle: ? The right ventricle is normal in size. ?Right ventricular global systolic function is normal. ?Pulmonary artery hypertension could not be assessed due to inadequate tricuspid regurgitation jet. Right Atrium: ? The right atrium is normal in size. Aortic Valve: ? The aortic valve is tricuspid. ?There is no evidence of aortic valve stenosis. ?There is no evidence of aortic regurgitation. Mitral Valve: ? The mitral valve leaflets appear normal. ?There is trace mitral regurgitation present. Tricuspid Valve: ? The tricuspid valve leaflets are morphologically normal. ?There is trace tricuspid regurgitation present. Pulmonic Valve: ? The pulmonic valve appears normal. Pericardium: ? There is no pericardial effusion. Aorta: ? The aortic root is normal in size. ?The ascending aorta is normal in size. Pulmonary Artery: ? The main pulmonary artery appears normal. Venous: ? The inferior vena cava appears normal in size. ?There is less than 50% respiratory change in the inferior vena cava dimension consistent with elevated right atrial pressure. Misc: ? There is no hemodynamically significant valve disease. ?See remainder of report for additional findings. ?Two-dimensional echo, spectral Doppler and color Doppler performed. ?Myocardial Strain Imaging Chambers 2D ?Value ?Units (Range) ? IVSd (2D) ? 1.06 ? cm ? LVPWd (2D) ?1.11 ? cm ? IVS:LVPW ratio (2D) 0.95 ? ratio ? RWT (2D) ?0.55 ? ratio ? RWT PW (2D) ? 0.56 ? ratio ? LVIDd (2D) ?3.99 ? cm ? LVIDs (2D) ?3.1 ?cm ? LVIDd (2D) index ?2 ?cm/m2 ? LVIDs (2D) index ?1.56 ? cm/m2 ? LV FS (2D) ?22.21 ?% ? EF Teichholz (2D) ?? 45.34 ?% ? Ao root diameter (2D2.8 ?cm (2.1 - 3.6) ? Ascending Ao ?3.01 ? cm (2 - 3.5) ? Volumes/Mass ?Value ?Units (Range) ? LA Area 4 CH ?16 ? cm2 (<21) ? LA ESV BP (A/L) inde18.76 ?ml/m2 ? RA AREA 4CH ? 15 ? cm2 ? LA ESV BP (MOD) inde19 ? ml/m2 ? LV ESV SP 4CH (MOD) 58.52 ?ml ? LV ESV SP 2CH (MOD) 54.52 ?ml ? LV EDV BP ? 117.46 ? ml ? LV ESV BP ? 56.82 ?ml ? LV EDV BP index ? 59.03 ?ml/m2 ? LV ESV BP index ? 28.56 ?ml/m2 ? BP EF (MOD) ? 52 ? % ? Global Longiitudinal-11 ?% (-30 - -10) ? LV mass (2D) ?142.77 ? g ? LV mass (2D) index ??71.76 ?g/m2 ? Diastolic/Systolic Function ?Value ?Units (Range) ? MV E-wave Vmax ?0.97 ? m/sec ? MV deceleration time77.28 ?msec ? MV A-wave Vmax ?1.16 ? m/sec ? MV E:A ratio ?0.83 ? ratio ? LV septal e' Vmax ?? 0.11 ? m/sec ? LV lateral e' Vmax ??0.11 ? m/sec ? LV average e' Vmax ??0.11 ? m/sec ? LV E:e' septal ratio8.78 ? ratio ? LV E:e' lateral rati8.78 ? ratio ? LV average E:e' rati8.78 ? ratio ? Aortic Valve ?Value ?Units (Range) ? AV Vmax ? 1.46 ? m/sec ? AV peak gradient ?8.5 ?mmHg ? LVOT diameter ? 2.04 ? cm ? LVOT Vmax ? 1.05 ? m/sec ? LVOT peak gradient ??4.41 ? mmHg ? DOI (Vmax) ?0.72 ? ratio ? WILLIAM (continuity Vmax2.37 ? cm2 ? WILLIAM (continuity Vmax1.19 ? cm2/m2 ? Tricuspid Valve ?Value ?Units (Range) ? TAPSE ? 1.6 ?cm ? RV lateral s' Vmax ??0.12 ? m/sec ? This report has been electronically signed by: Luke Luevano MD ? 01/02/2022 10:31:41 Images reviewed and interpretation verified [facility] Cardiac Ultrasound Laboratory Procedure Note Luke Luevano MD - 01/02/2022 Procedure: Transthoracic Echocardiogram Patient: CARSON METZGER(Age): 1975(46y) Med Rec#: [id number] Sex: F Site Loc: [facility] Ht / Wt: 163(cm)/94(kg) Pt. Loc: Echo Lab BSA: 1.99 Study Date: 01/02/2022 Pt. Type: Outpatient Tape: Referring: PRECIOUS Reading: Luke Luevano ([id number]) Flying Ii Instructor: Wil Cuellar RDCS, FASE Diagnosis: *Cardiomyopathy, unspecified (I42.9) Rhythm: Tachycardia BP: 120/62 HR: 110 SUMMARY: 1. The left ventricular chamber size is normal. Global left ventricular systolic function is very mildly reduced. The quantitative left ventricular ejection fraction by biplane Ombley's method is 52%. Global longitudinal strain is abnormal at -11%. 2. The right ventricle is normal in size. Right ventricular global systolic function is normal. Pulmonary artery hypertension could not be assessed due to inadequate tricuspid regurgitation jet. 3. There is no valve disease. 4. See remainder of report for additional findings. There is no prior study for comparison. Findings : Study Quality: Adequate Left Ventricle: The left ventricular chamber size is normal. Left ventricular wall thickness is normal. Global left ventricular systolic function is mildly reduced. GLS -11.0%(GE) The quantitative left ventricular ejection fraction by biplane Mobley's method is 52%. There is diffuse hypokinesis present. Assessment of diastolic function is indeterminate. E-A fusion due to high heart rates limits sensitivity of diastolic evaluation. Doppler assessment is consistent with normal left sided filling pressure. Left Atrium: The left atrium is normal in size. Right Ventricle: The right ventricle is normal in size. Right ventricular global systolic function is normal. Pulmonary artery hypertension could not be assessed due to inadequate tricuspid regurgitation jet. Right Atrium: The right atrium is normal in size. Aortic Valve: The aortic valve is tricuspid. There is no evidence of aortic valve stenosis. There is no evidence of aortic regurgitation. Mitral Valve: The mitral valve leaflets appear normal. There is trace mitral regurgitation present. Tricuspid Valve: The tricuspid valve leaflets are morphologically normal. There is trace tricuspid regurgitation present. Pulmonic Valve: The pulmonic valve appears normal. Pericardium: There is no pericardial effusion. Aorta: The aortic root is normal in size. The ascending aorta is normal in size. Pulmonary Artery: The main pulmonary artery appears normal. Venous: The inferior vena cava appears normal in size. There is less than 50% respiratory change in the inferior vena cava dimension consistent with elevated right atrial pressure. Misc: There is no hemodynamically significant valve disease. See remainder of report for additional findings. Two-dimensional echo, spectral Doppler and color Doppler performed. Myocardial Strain Imaging Chambers 2D Value Units (Range) IVSd (2D) 1.06 cm LVPWd (2D) 1.11 cm IVS:LVPW ratio (2D) 0.95 ratio RWT (2D) 0.55 ratio RWT PW (2D) 0.56 ratio LVIDd (2D) 3.99 cm LVIDs (2D) 3.1 cm LVIDd (2D) index 2 cm/m2 LVIDs (2D) index 1.56 cm/m2 LV FS (2D) 22.21 % EF Teichholz (2D) 45.34 % Ao root diameter (2D2.8 cm (2.1 - 3.6) Ascending Ao 3.01 cm (2 - 3.5) Volumes/Mass Value Units (Range) LA Area 4 CH 16 cm2 (<21) LA ESV BP (A/L) inde18.76 ml/m2 RA AREA 4CH 15 cm2 LA ESV BP (MOD) inde19 ml/m2 LV ESV SP 4CH (MOD) 58.52 ml LV ESV SP 2CH (MOD) 54.52 ml LV EDV BP 117.46 ml LV ESV BP 56.82 ml LV EDV BP index 59.03 ml/m2 LV ESV BP index 28.56 ml/m2 BP EF (MOD) 52 % Global Longiitudinal-11 % (-30 - -10) LV mass (2D) 142.77 g LV mass (2D) index 71.76 g/m2 Diastolic/Systolic Function Value Units (Range) MV E-wave Vmax 0.97 m/sec MV deceleration time77.28 msec MV A-wave Vmax 1.16 m/sec MV E:A ratio 0.83 ratio LV septal e' Vmax 0.11 m/sec LV lateral e' Vmax 0.11 m/sec LV average e' Vmax 0.11 m/sec LV E:e' septal ratio8.78 ratio LV E:e' lateral rati8.78 ratio LV average E:e' rati8.78 ratio Aortic Valve Value Units (Range) AV Vmax 1.46 m/sec AV peak gradient 8.5 mmHg LVOT diameter 2.04 cm LVOT Vmax 1.05 m/sec LVOT peak gradient 4.41 mmHg DOI (Vmax) 0.72 ratio WILLIAM (continuity Vmax2.37 cm2 WILLIAM (continuity Vmax1.19 cm2/m2 Tricuspid Valve Value Units (Range) TAPSE 1.6 cm RV lateral s' Vmax 0.12 m/sec This report has been electronically signed by: Luke Luevano MD 01/02/2022 10:31:41 Images reviewed and interpretation verified [facility] Cardiac Ultrasound Laboratory Alla Richardson MD ECHO ORDERAB LES documented in this encounter Visit Diagnoses Diagnosis HFrEF (heart failure with reduced ejection fraction) Pulmonary hypertension Other chronic pulmonary heart diseases HFrEF (heart failure with reduced ejection fraction) Pulmonary hypertension Other chronic pulmonary heart diseases documented in this encounter Care Teams Medical Office Receptionist Relationship Specialty Start Date End Date Edie Ellis MD [facility] [address] [place] [address] PCP - General 10/15/10 documented as of this encounter
--- OUTSIDE RECORDS SUMMARY | 2024-06-03 00:25 | XMS_ITS | Encounter Summary ---
Author Organization [facility] [place] [address] Care Team Providers Care Chief General Pediatric Clinic Name Role Phone Edie Ellis MD Primary Care Provider [phone] Reason for Visit * Reason Onset Date Comments Medication Refill 07/22/2021 Farxiga, insur ance requesting 90 day supply Encounter Details Date Type Department Care Team (Late st Contact Info) Description 07/22/2021 Refill Cardiology at [address] [address] Andreina David, [employer] [facility] [place] [address] Medication Refill (Farxiga, insurance requesting 90 day supply) Social History Tobacco Use Types Packs/Day Years [...] AM EDT Hospital Encounter Non-Invasive [place] [address] Arrived documented as of this encounter Visit Diagnoses Diagnosis Type 2 diabetes mellitus without complication, unspecified whether intermodal customer service insulin use documented in this encounter Care Teams Chief General Pediatric Clinic Relationship Specialty Start Date End Date Edie Ellis MD [address] [place] [address] PCP - General 10/15/10 documented as of this encounter
--- OUTSIDE RECORDS SUMMARY | 2024-06-03 00:25 | XMS_ITS | Encounter Summary ---
Author Organization [facility] [place] [address] Care Team Providers Care Emergency Room Orderly Name Role Phone Edie Ellis MD Primary Care Provider Encounter Details Date Type Department Care Team (Late st Contact Info) Description 10/15/2021 Orders Only Medical Genetics at [address] [address] [place], [facility] [place] [address] Dilated cardiomyopathy Social History Tobacco Use Types [...] AM EDT Hospital Encounter Non-Invasive [place] [address] Arrived documented as of this encounter Visit Diagnoses Diagnosis Dilated cardiomyopathy Other primary cardiomyopathies documented in this encounter Care Teams Emergency Room Orderly Relationship Specialty Start Date End Date Edie Ellis MD [address] [facility] [address] [place] [address] PCP - General 10/15/10 documented as of this encounter
--- OUTSIDE RECORDS SUMMARY | 2024-06-03 00:25 | XMS_ITS | Encounter Summary ---
Author Organization [facility] [place] [address] Care Team Providers Care Kennel Manager Name Role Phone Edie Ellis MD Primary Care Provider [phone] Encounter Details Date Type Department Care Team (Late st Contact Info) Description 09/12/2021 Orders Only Cardiology at [address] [phone] Kina Awad PA [facility] [place] [address] Pulmonary hypertension Social History Tobacco Use Types [...] AM EDT Hospital Encounter Non-[place] [phone] Arrived documented as of this encounter Results * Pulmonary Function Testing [...] / FVC LLN 70 % COMPAS PFT [id number] Actual Pre-BD 3.54 L/s COMPAS PFT [id number] Pre-BD % of Predicted 122 % COMPAS PFT [id number] Predicted 2.90 L/s COMPAS PFT [id number] Pre-BD Z-Score 0.73 COMPAS PFT DLCO Hb [...] Pulmonary hypertension Other chronic pulmonary heart diseases Pulmonary hypertension Other chronic pulmonary heart diseases documented in this encounter Care Teams Kennel Manager Relationship Specialty Start Date End Date Edie Ellis MD [address] [place] [address] PCP - General 10/15/10 documented as of this encounter
--- OUTSIDE RECORDS SUMMARY | 2024-06-03 00:25 | XMS_ITS | Encounter Summary ---
[place] [address] Care Team Providers Care Truck Loader And Unloader Name Role Phone Edie Ellis MD Primary Care Provider [phone] Reason for Referral * Diagnostic Test (Routine) - Closed Specialty Diagnoses / Procedures Referred By Contac t Referred To Contact Radiology Diagnoses Cardiomyopathy, unspecified type Procedures MRI Cardiac Morphology Function o Nikhil Huntley MD [address] [place] [address] [place] [address] [place] [address] Referral ID Status Reason Start Date Expiration Date V isits Requested Visits Authorized [id number] Closed Specialty Service Requested 04/04/2021 10/05/2022 1 1 Reason for Visit * Diagnostic Test (Routine) - Closed Specialty Diagnoses / Procedures Referred By Contac t Referred To Contact Radiology Diagnoses Cardiomyopathy, unspecified type Procedures MRI Cardiac Morphology Function eduardo Nikhil Huntley MD [address] [place] [address] [facility] [place] [place] [address] [place] [address] Referral ID Status Reason Start Date Expiration Date V isits Requested Visits Authorized [id number] Closed Specialty Service Requested 04/04/2021 10/05/2022 1 1 Encounter Details Date Type Department Care Team (Latest Contact Info) Description 05/08/2021 8:47 AM EDT - 05/08/2021 11:59 PM EDT Hospital Encounter MRI at [facility] [place] [address] Nikhil Eid MD [address] [place] [address] [place] [address] Cardiomyopathy, unspecified type Discharge Disposition: Home Social History Tobacco Use Types Packs/Day Years Used Date Smoking Tobacco: Former Cigarettes 1 3 0 06/03/2007 - 06/03/2010 Smokeless Tobacco: Never Alcohol Use Standard [...] Sig Dispensed Refills Start Date End Date cyanocobalamin, Vitamin B-12, (Vitamin B-12) 1,000 mcg Tablet TAKE 1 TABLET BY MOUTH EVERY DAY 04/23/2021 Aerochamber Max with Flow-VU Spacer USE DIRECTED 04/17/2021 levothyroxine (Synthroid) 25 mcg Tablet Bedtime 03/05/2017 metFORMIN XR (Glucophage XR) 500 mg Tablet Sustained Release 24 hr Twice a day 03/12/2015 naloxone (Narcan) 4 mg/actuation [place], Non-Aerosol Once 03/10/2019 magnesium oxide (MAG-OX) 400 [...] capsule Take 20 mg by mouth daily. pregabalin (Lyrica) 75 mg Capsule Three times [...] UNDER THE TONGUE AT BEDTIME 04/24/2021 01/02/2022 topiramate (TOPAMAX) 25 mg sprinkle capsule Take 25 mg by mouth 2 times daily. 06/17/2021 glipiZIDE (GLUCOTROL) 5 mg 24 hr tablet Take 5 mg by mouth daily. 06/17/2021 metoprolol succinate (TOPROL-XL) 50 mg 24 hr tablet Take 50 mg by mouth daily. 03/12/2023 meloxicam (MOBIC) 7.5 mg tablet Take by mouth 2 times daily. 06/17/2021 promethazine (PHENERGAN) 25 mg tablet Take 25 mg by mouth every 6 hours as needed. 06/17/2021 spironolactone (ALDACTONE) 25 mg tablet Take 12.5 mg by mouth daily. 06/17/2021 HYDROmorphone (DILAUDID) 2 mg tablet Take 1 tablet by mouth every 4 hours as needed for Pain. 20 tablet 0 06/03/2012 07/15/2023 PARoxetine (PAXIL) 20 mg tablet Take 60 mg by mouth every morning. 01/02/2022 lisinopril (PRINIVIL;ZESTRIL) 5 mg tablet Take 5 mg by mouth daily. 06/17/2021 Lancets Misc [place] [facility]Non-Drug; Combo Route) route daily. 06/17/2021 Miscellaneous Medical Supply Misc 1 strip by Mis.(Non-Drug; Combo Route) route daily. 06/17/2021 clonAZEpam (KLONOPIN) 1 mg tablet Take 1 mg by mouth 2 times daily as needed. 01/02/2022 ibuprofen (ADVIL;MOTRIN) 600 mg tablet 600 MG = 1 Tablet(s), PO, Q6H 03/05/2010 06/17/2021 documented as of this encounter Plan of Treatment Upcoming Encounters Date Type Department Care Team (Late st Contact Info) Description 07/09/2024 10:00 AM EDT Hospital Encounter Non-Invasive [place] [address] Arrived documented as of this encounter Procedures Procedure Name Priority Date/Time Associated Diagnosis Comments MRI CARDIAC MORPHOLOGY FUNCTION WWO CONTRAST Routine 05/08/2021 10:41 AM EDT Cardiomyopathy, unspecified type documented in this encounter Results * MRI Cardiac Morphology Function wwo Contrast (05/08/2021 10:41 AM EDT) Anatomical Region Laterality Modality Magnetic Resonan ce Impressions 05/08/2021 12:16 PM EDT Normal size of the cardiac chambers. Generalized left ventricular hypokinesis resulting in a decreased ejection fraction of 41%. No abnormal postcontrast enhancement that would indicate a postischemic change or infectious/infiltrative cardiomyopathy. Stable enlargement of the spleen. Thank you for letting us participate in the care of this patient. ??If you are a health care provider and have any questions regarding this report, please contact the number below. ??For patients who have questions please contact the health school childcare attendant that requested your imaging first. ? Electronically signed by: Laisha Leiva MD, [facility] ([phone]), at 05/08/2021 12:16 PM Narrative 05/08/2021 12:16 PM EDT EXAMINATION: MRI CARDIAC MORPHOLOGY FUNCTION WWO CONTRAST CLINICAL HISTORY: Cardiomyopathy. COMPARISON: None. TECHNIQUE: Axial HASTE without contrast. Short and long axis cine steady-state free precession without contrast. ?? Short and long axis rest perfusion and delayed enhancement after intravenous administration of 44 cc of Dotarem Post-processing performed on an independent computer workstation. Patient's calculated body surface area: 2.35 m^2 FINDINGS: Chambers Left ventricle: After correction for the patient's body surface area the left ventricular end diastolic volume index of 75 mL/m^2 is well within the normal range (56-100 mL/m^2 ). Right ventricle: Normal morphology and structure. Atria: Normal size of the left and right atrium. Myocardium Non-contrast series: No abnormal myocardial signal on non-contrast imaging. Post-contrast series: Normal left ventricular myocardial enhancement during rest perfusion. Normal myocardial signal nulling on the postcontrast inversion recovery images. No abnormal delayed enhancement. Wall motion abnormalities: Global left ventricular hypokinesis. Valves: No significant valvulopathy identified. Pericardium: No pericardial thickening or effusion. Aorta: Normal contour and caliber. Other thoracic great vessels: Normal contour and caliber. Non-cardiovascular structures: Enlargement of the spleen with a longitudinal diameter of 16 cm (this was also already seen on the prior outside CT from 2017). QUANTITATIVE DATA: LEFT VENTRICLE: LV Mass: 123 g LV End-Diastolic Volume: 175 mL LV End-Systolic Volume: 104 mL Stroke Volume: 71 mL LV Ejection Fraction: 41% Cardiac Output: 7 L/min Anteroseptal Wall Thickness: 7 mm Posterolateral Wall Thickness: 7 mm End-Diastolic Dimension: 5.6 cm End-Systolic Dimension: 4.3 cm RIGHT VENTRICLE: RV End-Diastolic Volume: 133 mL RV End-Systolic Volume: 63 mL RV Stroke Volume: 70 mL RV Ejection Fraction: 53% Procedure Note Laisha Mariscal MD - 05/08/2021 EXAMINATION: MRI CARDIAC MORPHOLOGY FUNCTION WWO CONTRAST CLINICAL HISTORY: Cardiomyopathy. COMPARISON: None. TECHNIQUE: Axial HASTE without contrast. Short and long axis cine steady-state free precession without contrast. Short and long axis rest perfusion and delayed enhancement afterintravenous administration of 44 cc of Dotarem Post-processing performed on an independent computer workstation. Patient's calculated body surface area: 2.35 m^2 FINDINGS: Chambers Left ventricle: After correction for the patient's body surface area theleft ventricular end diastolic volume index of 75 mL/m^2 is well within thenormal range (56-100 mL/m^2 ). Right ventricle: Normal morphology and structure. Atria: Normal size of the left and right atrium. Myocardium Non-contrast series: No abnormal myocardial signal on non-contrastimaging. Post-contrast series: Normal left ventricular myocardial enhancementduring rest perfusion. Normal myocardial signal nulling on the postcontrastinversion recovery images. No abnormal delayed enhancement. Wall motion abnormalities: Global left ventricular hypokinesis. Valves: No significant valvulopathy identified. Pericardium: No pericardial thickening or effusion. Aorta: Normal contour and caliber. Other thoracic great vessels: Normal contour and caliber. Non-cardiovascular structures: Enlargement of the spleen with alongitudinal diameter of 16 cm (this was also already seen on the prior outside [facility] 2017). QUANTITATIVE DATA: LEFT VENTRICLE: LV Mass: 123 g LV End-Diastolic Volume: 175 mL LV End-Systolic Volume: 104 mL Stroke Volume: 71 mL LV Ejection Fraction: 41% Cardiac Output: 7 L/min Anteroseptal Wall Thickness: 7 mm Posterolateral Wall Thickness: 7 mm End-Diastolic Dimension: 5.6 cm End-Systolic Dimension: 4.3 cm RIGHT VENTRICLE: RV End-Diastolic Volume: 133 mL RV End-Systolic Volume: 63 mL RV Stroke Volume: 70 mL RV Ejection Fraction: 53% IMPRESSION Normal size of the cardiac chambers. Generalized left ventricular hypokinesis resulting in a decreasedejection fraction of 41%. No abnormal postcontrast enhancement that would indicate a postischemicchange or infectious/infiltrative cardiomyopathy. Stable enlargement of the spleen. Thank you for letting us participate in the care of this patient. If youare a health care provider and have any questions regarding this report,please contact the number below. For patients who have questions please contactthe health school childcare attendant that requested your imaging first. Electronically signed by: Laisha Leiva MD, [facility] ([phone]), at 05/08/2021 12:16 PM Nikhil Eid MD IMG MRI ORDERABLES documented in this encounter Visit Diagnoses Diagnosis Cardiomyopathy, unspecified type documented in this encounter Administered Medications Inactive Administered Medications - up to 3 most recent administrations Medication Order MAR Action Action Date Dose Rate Site gadoterate meglumine (Dotarem) (0.5 mMol/mL) injection solution 0-100 mL 0-100 mL, Intravenous, ONCE PRN, 1 dose, Starting on Thu05/08/21 at 1039, Until Thu05/08/21 at 1006, Per Protocol, Radiology Contrast, Routine Given 05/08/2021 10:06 AM EDT 44 mLs documented in this encounter Care Teams Truck Loader And Unloader Relationship Specialty Start Date End Date Edie Ellis MD [address] [place] [address] PCP - General 10/15/10 documented as of this encounter
--- OUTSIDE RECORDS SUMMARY | 2024-06-03 00:25 | XMS_ITS | Encounter Summary ---
Author Organization [facility] [place] [address] Care Team Providers Care Wheel Inspector Name Role Phone Edie Ellis MD Primary Care Provider [phone] Encounter Details Date Type Department Care Team (Late st Contact Info) Description 06/14/2021 Orders Only Cardiology at [address] [address] Maryam Crouch RN Social History Tobacco Use Types Packs/Day [...] AM EDT Hospital Encounter Non[place] [address] Arrived documented as of this encounter Visit Diagnoses Not on filedocumented in this encounter Additional Health Concerns Infection Onset Date Last Indicated Resolved Time Rule Out COVID-19 07/01/2021 07/01/2021 07/01/2021 12:54 PM EDT documented as of this encounter Care Teams Wheel Inspector Relationship Specialty Start Date End Date Edie Ellis MD [address] [place] [address] PCP - General 10/15/10 documented as of this encounter
--- OUTSIDE RECORDS SUMMARY | 2024-06-03 00:25 | XMS_ITS | Encounter Summary ---
Author Organization [facility] Address [facility] [place] [address] Care Team Providers Care Baseball Sewer Hand Name Role Phone Edie Ellis MD Primary Care Provider [phone] Reason for Referral * Consultation (Routine) - Closed Specialty Diagnoses / Procedures Referred By Geraldine olmedo Referred To Contact Cardiology Diagnoses SOB (shortness of breath) Seen in the ED for SOB, BNP 666 Procedures From: Kina Awad PA Sent: 07/01/2021 5:15 PM EDT To: Rachel Yusuf Subject: RE: referral She is already established with Dr Eid who referred her to our team for genetic testing. I would recommend reaching out to the patient regarding current complaint and who she would want to see. She sees Dr Eid at [facility]. This seems confusing that we would get a referral. Thanks! Vani Evangelista MD [facility] [place] [address] Alla Nash MD [facility] [place] [address] Referral ID Status Reason Start Date Expiration Date V isits Requested Visits Authorized [id number] Closed Consult, Test & Treat 07/01/2021 07/01/2022 1 1 Reason for Visit * Reason Comments Shortness of Breath Dizziness Encounter Details Date Type Department Care Team ([facility] Contact Info) Description 07/01/2021 9:26 AM EDT - 07/01/2021 1:38 PM EDT Emergency Emergency Department [facility] [place] [address] Fior Little MD [facility] [address] [place] [address] SOB (shortness of breath) Discharge Disposition: Home Social History Tobacco Use [...] Sign Reading Time Taken Comments Blood Pressure 126/78 07/01/2021 12:00 PM EDT Pulse 73 07/01/2021 12:00 PM EDT Temperature 36.7 ??C (98.1 ??F) 07/01/2021 9:33 AM ED T Respiratory Rate 20 07/01/2021 12:00 PM EDT Oxygen Saturation 95% 07/01/2021 12:00 PM EDT Inhaled Oxygen Concentration - - Weight 99.8 kg (220 lb) 07/01/2021 9:33 AM EDT Height - - Body Mass Index 37.76 06/17/2021 8:52 AM EDT documented in this encounter Discharge Instructions * Discharge Instructions* Vani Foster MD - 07/01/2021 12:58 PM EDT You were seen in the emergency room today for shortness of breath and lightheadedness. We did multiple tests to check for possible reasons for this to be happening. You did not have any blood work orEKG findings suggesting a heart attack. We also check a blood marker for blood clots in your lungs,this level was normal. We also did a chest XR that did not show anything concerning. We think this may be a small flare-up of your CHF. You should continue to weigh yourself at home. If your weight is elevated from your normal (214lbs) you should double your lasix dosage until your weight goes back to normal. We would like you to follow up with cardiology here, we have sent a referral to them. If you do not get a call from them by tomorrow please call their office. Return to the ED if any symptoms concern you. Reasons would include chest pain, worsening shortnessof breath, feeling of fluid in your lungs, fever/chills or new dizziness/weakness. documented in this encounter Medications at Time [...] a day 03/12/2015 naloxone (Narcan) 4 mg/actuation [place], Non-Aerosol Once 03/10/2019 magnesium oxide (MAG-OX) 400 [...] 8 HOURS NEEDED FOR NAUSEA 06/05/2021 01/02/2022 dapagliflozin (Farxiga) 10 mg Tablet Take 10 mg by mouth daily. 30 tablet 11 06/17/2021 07/22/2021 lisinopriL (Zestril) 5 mg Tablet Take 1 [...] needed. 01/02/2022 documented as of this encounter ED Notes * Vani Foster MD - 07/01/2021 10:39 AM EDT ED Resident Note HPI: Jammie Gottlieb is a 46 y.o. female with history of cardiomyopathy, CHF, A. fib [facility] tightness and lightheadedness. Symptoms started last night with chest tightness, leg swelling and shortness of breath. This morning she woke up with a headache and some lightheadedness. She came to [facility] for blood work where she was extremely fatigued and lightheaded sent her to the emergency room. Now describing the chest tightness is being in the center of her chest and just tight. No pain. Also complaining of shortness of breath, no cough. She does have inhalers at home which she has not used the shortness of breath. Endorses some recent fever/chills. Pt was seen under the supervision of an attending physician. Review of Systems Pertinent positives and negatives are included in the HPI, otherwise at least ten systems were reviewed and negative. Past Medical and Surgical Histories, Social History, Medications, Allergies were reviewed in the chart. Vitals: ED Triage Vitals [07/01/21 0933] BP: (!) 132/93 Heart Rate: 77 Resp: 18 Temp: 36.7 ??C (98.1 ??F) Temp src: Oral SpO2: 96 % O2 Device: O2 Flow Rate (L/min): n/a Physical Exam HENT: Head: Normocephalic and atraumatic. Nose: Nose normal. Mouth/Throat: Mouth: Mucous membranes are moist. Eyes: Extraocular Movements: Extraocular movements intact. Cardiovascular: Rate and Rhythm: Normal rate and regular rhythm. Pulses: Normal pulses. Heart sounds: Normal heart sounds. Pulmonary: Effort: Pulmonary effort is normal. Breath sounds: Examination of the right-lower field reveals rales. Examination of the left-lower field reveals decreased breath sounds. Decreased breath sounds and rales present. Abdominal: General: Abdomen is flat. Tenderness: There is no abdominal tenderness. Skin: General: Skin is warm. Capillary Refill: Capillary refill takes less than 2 seconds. Neurological: General: No focal deficit present. Mental Status: She is alert and oriented to person, place, and time. Cranial Nerves: No cranial nerve deficit. Psychiatric: Mood and Affect: Mood normal. Assessment and Plan: 46 y.o. female with history of CHF coming in with shortness of breath, lightheadedness and chest tightness. Vital signs were reassuring when she got here she is normotensive, satting 96% on room air with a normal heart rate. DDx: ACS, PE, CHF exacerbation, COVID-19, pneumonia, electrolyte abnormality ACS-has a history of NE. Troponin negative and EKG shows no signs of acute ischemia. EKG unchanged from previous EKGs. PE-concern with chest tightness and shortness of breath. Satting well on room air. No risk factors for pulmonary embolism. D-dimer was within normal limits. CHF exacerbation-known cardiomyopathy and CHF with recent EF of 45-50%. Did note that yesterday herlegs were swelling up at the around the same time that she is having chest tightness and shortness of breath. On physical exam she does not look fluid overloaded no peripheral edema. Lung exam did reveal some rales in the right lower lobe. Chest x-ray did not show any cardiomegaly or pulmonary edema. Still likely that she may be having a small CHF exacerbation. Patient has previously been seen bycardiology here and instructed to increase her Lasix when her weight is above normal weight for her. She is currently been taking 1 dose of Lasix per day. BNP is elevated to 666. [id number] has been partially vaccinated. Receiving her first dose 2 weeks ago. Shortness of breath and chest tightness. Does endorse some fever/chills. Covid test ordered. Saturating 96 to 97% on room air, nontachypneic. No need for inpatient treatment of possible Covid. She will be called with her Covid results when they are available. Minimally displaced proximal fibula fracture. Pneumonia-is complaining of some subjective fevers and chills, and does have focal lung findings onphysical exam. X-ray negative for infiltrate. Electrolyte abnormality-consider electrolyte abnormality leading to this weakness/lightheadedness. BMP was reassuring. At this point the patient was instructed to continue as per her last cardiology instructions, to increase her Lasix dosage if her weight at home is elevated. She will follow up with cardiology outpatient. We have sent in a referral to expedite this process. The visit findings, diagnosis, and care plan were discussed with the patient. The diagnosis and care plans discussions were outlined in the discharge instructions. The patient expressed understanding of the details of the visit, the return precautions and that she should return to the ER at any time for worsening symptoms, new symptoms, or other concerns. she agrees with thefollow- up plan. Vani Foster MD Resident 07/01/21 1724 Associated attestation - Fior Little MD - 07/02/2021 6:47 AM EDT ED ATTENDING ATTESTATION NOTE The patient was seen in conjunction with the resident physician. I have independently performed thekey portions of the history and physical exam. I have reviewed the nursing notes, vital signs, and all diagnostic studies personally including labs, imaging studies and EKGs. I have discussed the details of the case with the resident and agree with the assessment and plan as described in the resident note unless noted otherwise. documented in this encounter Plan of Treatment Upcoming Encounters Date Type Department Care Team (Late st Contact Info) Description 07/09/2024 10:00 AM EDT Hospital Encounter [place] [address] Arrived Scheduled Orders Name Type Priority Associated Diagnoses Orde r Schedule EKG 12 Lead ECG STAT One Time for 1 Occurrences starting 07/01/2021 until 07/01/2021 EKG 12 Lead ECG STAT One Time for 1 Occurrences starting 07/01/2021 until 07/01/2021 Scheduled Referrals Name Type Priority Associated Diagnoses Order Schedule Referral to Cardiology Outpatient Referral Routine SOB (shortness of breath) Ordered: 07/01/2021 documented as of this encounter Procedures Procedure Name Priority Date/Time Associated Diagnosis Comments XR CHEST ONE VIEW STAT 07/01/2021 11: 00 AM EDT ABRAHAM TUBE HOLD STAT 07/01/2021 10:00 AM EDT HEMOGRAM STAT 07/01/2021 10:00 AM EDT DIFFERENTIAL, AUTOMATED STAT 07/01/2021 10:00 AM EDT D-DIMER, QUANTITATIVE STAT 07/01/2021 10:00 AM EDT GOLD TUBE HOLD STAT 07/01/2021 10:00 AM EDT BLUE TUBE HOLD STAT 07/01/2021 10:00 AM EDT HC CBC,PLT & AUTO DIFF STAT 07/01/2021 10:00 AM EDT HC TROPONIN T STAT 07/01/2021 10:00 AM EDT HC PROBNP STAT 07/01/2021 10:00 AM EDT BASIC METABOLIC PANEL (NON-FASTING) STAT 07/01/2021 10:00 AM EDT EKG 12-LEAD STAT 07/01/2021 9:59 AM EDT RAPID COVID-19 PCR ([facility]) STAT 07/01/2021 9:59 AM EDT documented in this encounter Results * XR Chest One View (07/01/2021 11:00 AM EDT) Anatomical Region Laterality Modality Chest N/A Digital Radiogra phy Impressions 07/01/2021 11:07 AM EDT No pulmonary edema. No pneumonia. Thank you for letting us participate in the care of this patient. ??If you are a health care provider and have any questions regarding this report, please contact the number below. ??For patients who have questions please contact the health manager critical care that requested your imaging first. ? Narrative 07/01/2021 11:07 AM EDT EXAMINATION: XR CHEST ONE VIEW CLINICAL HISTORY: SOB h/o CHF TECHNIQUE: 1 view of the chest COMPARISON: None FINDINGS: No pleural effusion. No pneumothorax. No consolidation. No parenchymal mass. Cardiac, mediastinal and hilar contours are within normal limits. No acute rib fracture. Procedure Note Jamee Kearney MD - 07/01/2021 EXAMINATION: XR CHEST ONE VIEW CLINICAL HISTORY: SOB h/o CHF TECHNIQUE: 1 view of the chest COMPARISON: None FINDINGS: No pleural effusion. No pneumothorax. No consolidation. No parenchymalmass. Cardiac, mediastinal and hilar contours are within normal limits. No acuterib fracture. IMPRESSION No pulmonary edema. No pneumonia. Thank you for letting us participate in the care of this patient. If youare a health care provider and have any questions regarding this report,please contact the number below. For patients who have questions please contactthe health manager critical care that requested your imaging first. Fior Little MD IMG DX ORDERABLES * D-Dimer, Quantitative (07/01/2021 10:00 AM EDT) D-Dimer, Quant 251 0 - 500 FEU ng/ml [facility] Comment: The D-Dimer assay is used to aid in the diagnosis of deep vein thrombosis and pulmonary embolism. A normal D-Dimer result (less than 500 FEU ng/ml) has a negative predictive value of approximately 95% for the exclusion of acute PE and DVT when there is low to moderate pretest probability. To use age adjusted cutoff: Age x 10 ng/ml. Blood Venous Draw / Unknown 07/01/2021 10:00 AM EDT 07/01/2021 10:10 AM EDT Narrative Resulting Agency Comment Spec In Lab Fior Little MD HEMATOLOGY ORDERABL ES [facility] [place] [address] * Abraham Tube Hold (07/01/2021 10:00 AM EDT) Abraham Hold Sample in lab. [facility] Blood Venous Draw / Unknown 07/01/2021 10:00 AM EDT 07/01/2021 10:11 AM EDT Vani Evangelista MD CHEMISTRY ORDERAB LES Performing Organization Address City/[facility]/ZIP Co de Phone Number [facility] [place] [address] * Gold Tube HOLD (07/01/2021 10:00 AM EDT) Gold Hold Sample in lab. [facility] Blood Venous Draw / Unknown 07/01/2021 10:00 AM EDT 07/01/2021 10:10 AM EDT Vani Evangelista MD CHEMISTRY ORDERAB LES Performing Organization Address City/[facility]/ZIP Co de Phone Number [facility] [place] [address] * Blue Tube HOLD (07/01/2021 10:00 AM EDT) Blue Hold Sample in lab. [facility] Blood Venous Draw / Unknown 07/01/2021 10:00 AM EDT 07/01/2021 10:10 AM EDT Vani Evangelista MD HEMATOLOGY ORDERA BLES Performing Organization Address City/[facility]/ZIP Co de Phone Number [facility] [place] [address] * Differential, Automated (07/01/2021 10:00 AM EDT) Neutrophils % 56.0 % [facility] Neutr Abs (ANC) 4.88 1.70 - 6.10 x10(3)/[facility] Lymphocytes % 33.6 % [facility] Lymphocytes Abs 2.9 0.9 - 3.2 x10(3)/[facility] Monocytes % 4.5 % [facility] Monocyte Abs 0.4 0.3 - 0.9 x10(3)/[facility] Eosinophils % 4.7 % [facility] Eosinophils Abs 0.4 0.0 - 0.4 x10(3)/[facility] Basophils % 1.0 % [facility] Basophils Abs 0.1 0.0 - 0.1 x10(3)/[facility] Immature Gran % 0.20 % [facility] Comment: Immature granulocytes(IG's)percentage and absolute count will include metamyelocytes, myelocytes, and promyelocytes. Blood smears from CBCs yielding IG's will be scanned manually for concordance. If this scan disagrees with the automated IG or if promyelocytes are noted, a manual differential will be performed. Rylee Gran Abs 0.02 0.00 - 0.04 x10(3)/[facility] Blood 07/01/2021 10:0 0 AM EDT 07/01/2021 10:09 AM EDT Narrative Resulting Agency Comment Spec In Lab Vani Evangelista MD HEMATOLOGY ORDERA BLES [facility] [place] [address] * (ABNORMAL) Hemogram (07/01/2021 10:00 AM EDT) WBC 8.7 4.0 - 9.5 x10(3)/[facility] RBC 4.33 4.00 - 5.21 x10(6)/[facility] Hemoglobin 12.9 11.7 - 15.5 gm/dL [facility] Hematocrit 39.4 35.7 - 45.8 % [facility] MCV 91.0 82.6 - 94.4 fL [facility] MCH 29.8 27.1 - 32.0 pg [facility] MCHC 32.7 31.7 - 35.0 gm/dL [facility] Platelets 183 145 - 357 x10(3)/[facility] RDWSD 46.7(H) 37.0 - 46.0 fL [facility] RDWCV 14.1 11.5 - 14.1 % [facility] MPV 10.6 7.6 - 12.9 fL [facility] nRBC % Auto 0.0 % [facility] nRBC Abs Auto 0.000 0.000 - 0.000 x10(3)/[facility] Blood 07/01/2021 10:0 0 AM EDT 07/01/2021 10:09 AM EDT Narrative Resulting Agency Comment Spec In Lab Vani Evangelista MD HEMATOLOGY ORDERA BLES Performing Organization Address City/[facility]/ZIP Co de Phone Number [facility] [place] [address] * (ABNORMAL) pro-Brain Natriuretic Peptide (07/01/2021 10:00 AM EDT) ProBNP 666(H) <=124 pg/mL [facility] Blood 07/01/2021 10:0 0 AM EDT 07/01/2021 10:09 AM EDT Narrative Resulting Agency Comment Spec In Lab Fior Little MD CHEMISTRY ORDERABLE S Performing Organization Address City/[facility]/ZIP Co de Phone Number [facility] [place] [address] * Troponin (07/01/2021 10:00 AM EDT) Pathologist [facility] Troponin-T <0.01 0.00 - 0.00 ng/mL [facility] Comment: The 99th percentile for Troponin T is less than 0.01 ng/mL, any detectable cTnT concentration using this assay should be considered elevated. According to the third universal definition of myocardial infarction the following criteria with a clinical presentation consistent with acute myocardial ischemia meets the diagnosis for a myocardial infarction (NE). Detection of a rise and/or fall of cTnT, with at least one value greater than the 99th percentile (> or = 0.01) and with at least one of the following ?? Symptoms of ischemia ?? New or presumed new significant PI-llazhzh-F wave (ST-T) changes or new left bundle branch block (LBBB) ?? Development of pathologic Q waves in the ECG ?? Imaging evidence of new loss of viable myocardium or new regional wall motion abnormality ?? Identification of an intracoronary thrombus by angiography or autopsy Samples for cTnT testing should be obtained serially upon first assessment and again 3 to 6 hours later. If the clinical suspicion is high and previous samples have been negative an additional sample may be indicated. Reference: Third Draper Definition of Myocardial Infarction. Journal of the [employer] [employer] 2012;60:1581-98 Blood 07/01/2021 10:0 0 AM EDT 07/01/2021 10:09 AM EDT Narrative Resulting Agency Comment Spec In Lab Fior Little MD CHEMISTRY ORDERABLE S [facility] [place] [address] * Basic Metabolic Panel (non-fasting) (07/01/2021 10:00 AM EDT) [facility] Glucose Lvl 121 65 - 199 mg/dL [facility] Comment:Diabetes: >=200 mg/d L plus symptoms BUN 18 8 - 18 mg/dL [facility] Creatinine 0.72 0.70 - 1.20 mg/dL [facility] Sodium 138 135 - 145 mmol/L [facility] Potassium 4.6 3.5 - 5.0 mmol/L [facility] Comment: Please note: ??Patients with WBC >100,000 may have falsely elevated Potassium levels. ??For accurate Potassium quantification in these patients send serum separator tube (gold top) for subsequent determinations. ??Contact the Clinical Chemistry Laboratory if there are any questions. Chloride 101 98 - 107 mmol/L [facility] CO2 26 22 - 31 mmol/L [facility] Anion Gap 11 5 - 15 mmol/L [facility] Calcium 8.9 8.5 - 10.5 mg/dL [facility] Estimated GFR 100 >=60 mL/min/1. 73 m?? [facility] Comment: This patient? s estimated glomerular filtration rate (eGFR) is between 100 mL/min/1.73 m2 (patients with less muscle mass) and 116 mL/min/1.73 m2 (patients with more muscle mass) [...] and symptoms in addition to eGFR. Blood 07/01/2021 10:0 0 AM EDT 07/01/2021 10:09 AM EDT Narrative Resulting Agency Comment Spec In Lab Fior Little MD CHEMISTRY ORDERABLE S [facility] [place] [address] * EKG 12 Lead (07/01/2021 9:59 AM EDT) Ventricular rate 75 BPM MUSE SYSTEM Atrial Rate 75 BPM MUSE SYSTEM P-R Interval 180 ms MUSE SYSTEM QRS Duration 70 ms MUSE SYSTEM Q-T Interval 420 ms MUSE SYSTEM QTC Calculated (Bezet) 469 ms MUSE SYSTEM Calculated P [place] 9 degrees MUSE SYSTEM Calculated R [place] -5 degrees MUSE SYSTEM Calculated T [place] 18 degrees MUSE SYSTEM INTERPRETATION Normal sinus rhythm Low voltage QRS Low septal forces Poor R-wave progression Abnormal ECG When compared with ECG of 07-SEP-2013 09:28, No significant change was found Confirmed by Rainer Nova MD ([id number]) on 07/01/2021 12:26:28 PM MUSE SYSTEM 07/01/2021 9:59 AM EDT 07/01/2021 12:26 PM EDT Fior Little MD ECG ORDERABLES MUSE SYSTEM * COVID-19 PCR (07/01/2021 9:59 AM EDT) SARS-CoV-2 RNA PCR Not Detected Not Detected [facility] Comment: This result should be interpreted in combination with the clinical observations, patient history and epidemiological information. For testing of asymptomatic individuals, assay performance characteristics and clinical utility have not been evaluated. Testing for SARS-CoV-2 (Severe acute respiratory syndrome coronavirus 2, formerly known as 2019 novel coronavirus or 2019-nCoV) to aid in the diagnosis of COVID-19 is performed using the Simplexa COVID-19 Direct Assay by [employer] as authorized by the FDA issued Emergency Use Authorization (EUA). This assay is intended for In-vitro Diagnostic (IVD) use with nasopharyngeal swabs collected from individuals meeting the CDC criteria for testing. The assay is performed based on the instructions for use and additional guidance provided by the FDA. Testing is performed in the Microbiology Laboratory within the Department of Pathology and Laboratory Medicine at [facility], certified under the Clinical Laboratory Improvement Amendments of 1988 (CLIA), 42 U.S.C. section 263a, to perform high complexity tests. Assay performance has been verified according to clinical laboratory regulatory requirements. Test results are provided above. A result of Not Detected indicates that the viral RNA target is not present but does not preclude SARS-CoV-2 infection. False negative results may occur if a specimen is improperly collected, transported or handled; if amplification inhibitors are present; or if inadequate numbers of viral particles are present in the specimen. A result of Detected suggests a current or recent infection and the patient is presumed to be infected. Positive and negative predictive values for this test are highly dependent on disease prevalence. A result of Invalid indicates the inability to conclusively determine the presence or absence of SARS-CoV-2 RNA in the sample which can be due to a variety of factors. Recollection is recommended in the case of an invalid result. CDC COVID-19 criteria for testing on human specimens and clinical management guidance information are available at the CDC Coronavirus Disease 2019 (COVID-19) webpage under Information for Healthcare Professionals (https://www.cdc.gov/coronavirus/2019-ncov/hcp/index.html). Additional information about this and other EUA tests can be found in provider and patient fact sheets at the following FDA website: https://www.fda.gov/medical-devices/attbbtgfxoh-ldjnqit-6451-xmude-57-lzsdqwvpi- use-a vlaqkwhvectos-vbexoxq-thqtxcv/tixga-cezklcmofgx-ypxb SARS-CoV-2 Source [employer] Swab [facility] Nasopharyngeal Swab 07/01/20 9:59 AM EDT 07/01/2021 10:52 AM EDT Comment:Symptoms->COVID-19 S uspected Narrative Resulting Agency Comment Spec In Lab Fior Little MD MICROBIOLOGY - [facility] ORDERABLES Performing Organization Address City/State/[facility] Co de Phone Number [facility] [place] [phone] documented in this encounter Visit Diagnoses Diagnosis SOB (shortness of breath) Shortness of breath documented in this encounter Additional Health Concerns Infection Onset Date Last Indicated Resolved Time Rule Out COVID-19 07/01/2021 07/01/2021 07/01/2021 12:54 PM EDT documented as of this encounter Care Teams Baseball Sewer Hand Relationship Specialty Start Date End Date Edie Ellis MD [address] [place] [address] PCP - General 10/15/10 documented as of this encounter
--- OUTSIDE RECORDS SUMMARY | 2024-06-03 00:25 | XMS_ITS | Encounter Summary ---
Author Organization [facility] Address [facility] [place] [address] Care Team Providers Care Senior Software Engineer Analytics Name Role Phone Edie Ellis MD Primary Care Provider Reason for Referral * Consultation (Routine) - Closed Specialty Diagnoses / Procedures Referred By Geraldine olmedo Referred To Contact Genetics Diagnoses Cardiomyopathy, unspecified type Kina Griffin PA [facility] [place] [address] [address] Referral ID Status Reason Start Date Expiration Date V isits Requested Visits Authorized [id number] Closed Consult, Test & Treat 06/17/2021 06/17/2022 1 1 Reason for Visit * Consultation (Routine) - Closed Specialty Diagnoses / Procedures Referred By Geraldine olmedo Referred To Contact Cardiology Diagnoses Cardiomyopathy, unspecified Cardiomyopathy. Needs CMRI and referral to HF for family hx of CM *SCANNED DOCS Edie Ellis MD [address] [place] [address] Alla Nash MD [facility] [place] [address] Referral ID Status Reason Start Date Expiration Date Visits Re quested Visits Authorized [id number] Closed 04/09/2021 04/09/2022 1 1 Encounter Details Date Type Department Care Team (Late st Contact Info) Description 06/17/2021 9:00 AM EDT Office Visit Cardiology at [address] [place] [address] Alla Nash MD [facility] [place] [address] Kina Griffin PA [facility] [place] [address] Cardiomyopathy, unspecified type Social History Tobacco Use Types Packs/Day Years [...] Sign Reading Time Taken Comments Blood Pressure 122/72 06/17/2021 8:52 AM EDT Pulse 86 06/17/2021 8:52 AM EDT Temperature - - Respiratory Rate - - Oxygen Saturation 97% 06/17/2021 8:52 AM EDT Inhaled Oxygen Concentration - - Weight 97.1 kg (214 lb 1.6 oz) 06/17/2021 8:52 A M EDT Height 162.6 cm (5' 4) 06/17/2021 8:52 AM EDT Body Mass Index 36.75 06/17/2021 8:52 AM EDT documented in this encounter Patient Instructions * Patient Instructions* Kina Griffin PA - 06/17/2021 9:00 AM EDT 1. Start lisinopril 5 mg daily. Please check your blood pressure. 2. Blood test on July 01. 3. We will check the cost of Farxiga. Please expect a call from our pharmacy. 4. Referral placed to genetic testing. 5. Weigh yourself daily. For weight gain of 2-3 pounds overnight or 5 pounds in 5 days. Ok to take an extra tablet of Lasix until you return to your dry weight, ~214 lbs. Please call if you have questions or concerns. documented in this encounter Progress Notes * Kina Griffin PA - 06/17/2021 9:00 AM EDT Images from the original note were not included. [facility] Section of Advanced Heart Failure Cardiology [facility] [place] [address] OUTPATIENT VISIT DATE: 06/09/21 OUTPATIENT VISIT TYPE: New patient PRIMARY CARE PHYSICIAN: Edie Ellis MD REFERRING [...] Last syncopal event Aug 2020, admitted to [facility]. Loss of urine. Placed on Keppra, released with cardiac event monitor, worn for 30 days without significant findings. Tobacco use - 1/2 ppd, started at the age of 40. No alcohol or drug use. Disabled due to chronic back pain. Most recent admission was last week Thursday. She states Thursday and Thursday, she was markedly short of breath. Syncope x2. Did not want to call 911 thus delayed admission. Called PCP. Directed to [facility]. Told this was a CHF exacerbation. CXR, labs, no results to refer to. Treated with diuretics. Increased Lasix to 40 mg for 3 days. Per patient, reports reasonable results/weight loss. Patient Active Problem List Diagnosis ??? T2DM [...] by mouth daily. ??? Lancets Misc by [facility].(Non-Drug; Combo Route) route daily. ??? Miscellaneous Medical Supply Misc 1 strip by [facility].(Non-Drug; Combo Route) route daily. ??? clonAZEpam (KLONOPIN) [...] the past 24 hrs: Pulse BP SpO2 06/17/21 0852 86 122/72 97 % GENERAL: Pleasant and in no acute [...] Recent Results (from the past 24 hour(s)) Lipid Panel (Reflex Direct LDL) Result Value Ref Range Chol, Total 144 mg/dL Triglycerides 489 mg/dL HDL 30 mg/dL LDL Cholesterol Not Calculated Chol/HDL Ratio 4.8 ratio Lipid Interpretation See Note TSH Result Value Ref Range TSH 0.85 0.27 - 4.20 mcIU/mL pro-Brain Natriuretic Peptide Result Value Ref Range ProBNP 79 <=124 pg/mL Comprehensive metabolic panel (non-fasting) Result Value Ref Range Glucose Lvl 189 65 - 199 mg/dL BUN 14 8 - 18 mg/dL Creatinine 0.72 0.70 - 1.20 mg/dL Sodium 137 135 - 145 mmol/L Potassium 4.0 3.5 - 5.0 mmol/L Chloride 99 98 - 107 mmol/L CO2 26 22 - 31 mmol/L Anion Gap 12 5 - 15 mmol/L Calcium 9.2 8.5 - 10.5 mg/dL Total Protein 7.4 6.1 - 8.0 gm/dL Albumin 4.6 3.2 - 5.2 gm/dL AST 26 0 - 30 unit/L ALT 23 0 - 30 unit/L Alk Phos 62 35 - 105 unit/L Total Bilirubin 0.3 0.2 - 1.3 mg/dL Estimated GFR 100 >=60 mL/min/1.73 m?? Hemogram Result Value Ref Range WBC 10.4 (H) 4.0 - 9.5 x10(3)/mcL RBC 5.12 4.00 - 5.21 x10(6)/mcL Hemoglobin 15.0 11.7 - 15.5 gm/dL Hematocrit 46.7 (H) 35.7 - 45.8 % MCV 91.2 82.6 - 94.4 fL MCH 29.3 27.1 - 32.0 pg MCHC 32.1 31.7 - 35.0 gm/dL Platelets 256 145 - 357 x10(3)/mcL RDWSD 48.0 (H) 37.0 - 46.0 fL RDWCV 14.5 (H) 11.5 - 14.1 % MPV 10.6 7.6 - 12.9 fL nRBC % Auto 0.0 % nRBC Abs Auto 0.000 0.000 - 0.000 x10(3)/mcL Differential, Automated Result Value Ref Range Neutrophils % 54.2 % Neutr Abs (ANC) 5.65 1 - 6 x10(3)/mcL Lymphocytes % 32.2 % Lymphocytes Abs 3.4 (H) 0.9 - 3.2 x10(3)/mcL Monocytes % 5.2 % Monocyte Abs 0.5 0.3 - 0.9 x10(3)/mcL Eosinophils % 6.8 % Eosinophils Abs 0.7 (H) 0.0 - 0.4 x10(3)/mcL Basophils % 1.3 % Basophils Abs 0.1 0.0 - 0.1 x10(3)/mcL Immature Gran % 0.30 % Rylee Gran Abs 0.03 0.00 - 0.04 x10(3)/mcL LDL Cholesterol, Direct Result Value Ref Range LDL Chol Direct 60 mg/dL CARDIOLOGY RELEVANT STUDIES: CXR EKG Holter monitor Echo and JACQUES 2012 LVEF 40%. LVEDD 5.2 08/2020 LVEF 50-55%. Mild global HK. RV OK. Stress test Coronary Angiography 08/2013 Mild diffuse disease. LVEDP 17 Right Heart Catheterization Endomyocardial Biopsy Cardiac MRI 04/2021 IMPRESSION Normal [...] y.o. female with history as above, seen in the cardiology clinic today withthe following impression and plan: 1. 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 Chronic systolic CHF, HFmrEF; well compensated, euvolemic on exam today NYHA functional class ACC/AHA Stage Dry Weight NYHA class II-IIIb; ACC/AHA Stage C Dry Weight 214 lbs Beta Peggy and/or Ivabradine Metoprolol succinate 50 mg daily REEMA or ARB or Entresto Discontinued possibly in the setting of MACY Plan to restart ACEi for renal protection given DM Aldosterone antagonist Discontinued possibly in the setting of MACY Diuretic Lasix 20 mg daily ICD or SHODDY MILL WORKER-D if indicated Not indicated with LVEF >35% Other considerations Not indicated for SGLT2i with LVEF >35% however, with DM, would ask that this be considered 3. HTN BP: (122)/(72) Well controlled today in office, reports that BP approaches 140/90 at home Add lisinopril as recommended for tighter control in DM 4. DM Add lisinopril for renal protection Add Farxiga 10 mg daily 5. HLD - Low HDL, high TG On Crestor with LDL of 60 Moderate elevation in TG, consider icosapent ethyl RECOMMENDATIONS: Patient Instructions 1. Start lisinopril 5 mg daily. Please check your blood pressure. 2. Blood test on July 01. 3. We will check the cost of Farxiga. Please expect a call from our pharmacy. 4. Referral placed to genetic testing. 5. Weigh yourself daily. For weight gain of 2-3 pounds overnight or 5 pounds in 5 days. Ok to take an extra tablet of Lasix until you return to your dry weight, ~214 lbs. Please call if you have questions or concerns. COUNSELING: The signs and symptoms to be [...] When to call our office FOLLOW UP: OV in Jul with labs TTE, labs, OV in 6 months Cardiology Attending Addendum I was the assigned attending scale and skip car operator for this clinical encounter. For the purposes of billing,I was directly involved in the clinical decision making and the plan of care is reasonable. Please see the note by ANNE Griffin for full details, in brief: Jammie Gottlieb is a 46 y.o. 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 Given family history, very reasonable to pursue genetic testing, we will make referral and coordinate results. For now, given DM, reasonable to restart ACEi and SGLT-2. Unfortunately she has no other indications for GDMT with EF 41% at this time. Low threshold for RHC/LHC in the future, especially if needed to sort out lasix dosing. No need for repeat cMR at thistime. Recommendations: 1. Lisinopril 5mg QD 2. Dapa 10mg QD 3. Genetic testing referral We will see her back in clinic after genetic testing to determine oil heaterman plan for follow up. Thank you for allowing us to participate in the care of this patient. For any additional questions,my pager is #[phone]. Alla Juárez MD MPH Advanced Heart Disease & Cardiac Transplant Attending 06/17/2021, 12:43 PM documented in this encounter Plan of Treatment Upcoming Encounters Date Type Department Care Team (Late st Contact Info) Description 07/09/2024 10:00 AM EDT Hospital Encounter Non-[place] [address] Arrived Scheduled Referrals Name Type Priority Associated Diagnoses Orde r Schedule Referral to Genetics Outpatient Referral Routine Cardiomyopathy, unspecified type Ordered: 06/17/2021 documented as of this encounter Visit Diagnoses Diagnosis Cardiomyopathy, unspecified type documented in this encounter Care Teams Senior Software Engineer Analytics Relationship Specialty Start Date End Date Edie Ellis MD [facility] [address] [place] [address] PCP - General 10/15/10 documented as of this encounter
--- OUTSIDE RECORDS SUMMARY | 2024-06-03 00:25 | XMS_ITS | Encounter Summary ---
[place] [address] Care Team Providers Care Cashier Ticket Selling Name Role Phone Edie Ellis MD Primary Care Provider [phone] Encounter Details Date Type Department Care Team (Latest Contact Info) Description 03/05/2017 - 03/05/2017 11:59 PM EDT Hospital Encounter [place] [address] Edie Ellis MD [facility] [address] [place], [place] [id number] Pain Discharge Disposition: Home Social History Tobacco Use [...] Sig Dispensed Refills Start Date End Date levothyroxine (Synthroid) 25 mcg Tablet Bedtime 03/05/2017 metFORMIN XR (Glucophage XR) 500 mg Tablet Sustained Release 24 hr Twice a day 03/12/2015 magnesium oxide (MAG-OX) 400 mg tablet Take [...] capsule Take 20 mg by mouth daily. topiramate (TOPAMAX) 25 mg sprinkle capsule Take [...] by mouth daily. 06/17/2021 Lancets Misc by Misc.(Non-Drug; Combo Route) route daily. 06/17/2021 Miscellaneous Medical [...] AM EDT Hospital Encounter Non-[place] [address] Arrived documented as of this encounter Procedures Procedure Name Priority Date/Time Associated Diagnosis Comments FILM LIBRARY STORAGE ONLY CT ABDOMEN AND PELVIS Routine 03/05/2017 12:00 AM EDT Pain documented in this encounter Results * Film Library- Storage Only CT Abdomen & Pelvis (03/05/2017 12:00 AM EDT) Narrative [facility] - 03/18/2017 2:28 PM EDT This exam is for storage only and is auto-finalizing. Edie Ellis MD IMG FILM LIBRARY ORD ERABLES [place], [place] documented in this encounter Visit Diagnoses Diagnosis Pain Generalized pain documented in this encounter Care Teams Cashier Ticket Selling Relationship Specialty Start Date End Date Edie Ellis MD [facility] [address] [place] [address] PCP - General 10/15/10 documented as of this encounter
--- OUTSIDE RECORDS SUMMARY | 2024-06-03 00:25 | XMS_ITS | Encounter Summary ---
[place] [address] Care Team Providers Care Fiction And Nonfiction Writer Prose Name Role Phone Edie Ellis MD Primary Care Provider [phone] Encounter Details Date Type Department Care Team (Latest Contact Info) Description 03/06/2017 - 03/06/2017 11:59 PM EDT Hospital Encounter [place] [address] [facility] [address] [place], [place] [id number] Pain Discharge Disposition: Home Social History Tobacco [...] Capsule Three times a day 03/06/2017 07/13/2023 topiramate (TOPAMAX) 25 mg sprinkle capsule Take [...] by mouth daily. 06/17/2021 Lancets Misc by [facility].(Non-Drug; Combo Route) route daily. 06/17/2021 Miscellaneous Medical Supply Misc 1 strip by [facility].(Non-Drug; Combo Route) route daily. 06/17/2021 clonAZEpam (KLONOPIN) [...] AM EDT Hospital Encounter Non-[place] [address] Arrived documented as of this encounter Procedures Procedure Name Priority Date/Time Associated Diagnosis Comments FILM LIBRARY STORAGE ONLY ULTRASOUND STUDY Routine 03/06/2017 12:00 AM EDT Pain documented in this encounter Results * Film Library- Storage Only Ultrasound Study (03/06/2017 12:00 AM EDT) Narrative [facility] - 03/18/2017 2:29 PM EDT This exam is for storage only and is auto-finalizing. Edie Ellis MD [facility] FILM LIBRARY ORD ERABLES [place], [place] documented in this encounter Visit Diagnoses Diagnosis Pain Generalized pain documented in this encounter Care Teams Fiction And Nonfiction Writer Prose Relationship Specialty Start Date End Date Edie Ellis MD [address] [place] [address] PCP - General 10/15/10 documented as of this encounter
--- OUTSIDE RECORDS SUMMARY | 2024-06-03 00:25 | XMS_ITS | Encounter Summary ---
[place] [address] Care Team Providers Care Automatic Trimming Sewer Name Role Phone Edie Ellis MD Primary Care Provider Encounter Details Date Type Department Care Team (Latest Contact Info) Description 06/17/2021 8:00 AM EDT Laboratory Appointment Lab [address] [place] [phone] Other cardiomyopathy; ASCVD (arteriosclerotic cardiovascular disease); AMARO (dyspnea on exertion) Social History Tobacco Use Types Packs/Day Years [...] AM EDT Hospital Encounter Non-Invasive [place] [address] Arrived documented as of this encounter Procedures Procedure Name Priority Date/Time Associated Diagnosis Comments HEMOGRAM STAT 06/17/2021 8:09 AM EDT Other cardiomyopathy DIFFERENTIAL, AUTOMATED STAT 06/17/2021 8:09 AM EDT Other cardiomyopathy HC CBC,PLT & AUTO DIFF STAT 06/17/2021 8:09 AM EDT Other cardiomyopathy HC THYROID STIMULATING HORMONE, SERUM STAT 06/17/2021 8:09 AM EDT Other cardiomyopathy AMARO (dyspnea on exertion) HC PROBNP STAT 06/17/2021 8:09 AM EDT Other cardiomyopathy AMARO (dyspnea on exertion) LDL CHOLESTEROL, DIRECT STAT 06/17/2021 8:09 AM EDT HC VENIPUNCTURE STAT 06/17/2021 8:09 AM EDT Other cardiomyopathy ASCVD (arteriosclerotic cardiovascular disease) COMPREHENSIVE METABOLIC PANEL (NON-FASTING) STAT 06/17/2021 8:09 AM EDT Other cardiomyopathy documented in this encounter Results * LDL Cholesterol, Direct (06/17/2021 8:09 AM EDT) LDL Chol Direct 60 mg/dL [facility] Comment: Lowest Risk: <100 mg/dL Lower Risk: 100-129 mg/dL Borderline High Risk: 130-159 mg/dL High Risk: 160-189 mg/dL Very High Risk: >ox=942 mg/dL Blood 06/17/2021 8:09 AM EDT 06/17/2021 8:20 AM EDT Narrative Resulting Agency Comment Spec In Lab Andreina David APRN CHEMISTRY ORDERABLES [facility] [place] [address] * (ABNORMAL) Differential, Automated (06/17/2021 8:09 AM EDT) Neutrophils % 54.2 % [facility] Neutr Abs (ANC) 5.65 1.70 - 6.10 x10(3)/mc L [facility] Lymphocytes % 32.2 % [facility] Lymphocytes Abs 3.4(H) 0.9 - 3.2 x10(3)/[facility] Monocytes % 5.2 % [facility] Monocyte Abs 0.5 0.3 - 0.9 x10(3)/[facility] Eosinophils % 6.8 % [facility] Eosinophils Abs 0.7(H) 0.0 - 0.4 x10(3)/[facility] Basophils % 1.3 % [facility] Basophils Abs 0.1 0.0 - 0.1 x10(3)/[facility] Immature Gran % 0.30 % [facility] Comment: Immature granulocytes(IG's)percentage and absolute count will include metamyelocytes, myelocytes, and promyelocytes. Blood smears from CBCs yielding IG's will be scanned manually for concordance. If this scan disagrees with the automated IG or if promyelocytes are noted, a manual differential will be performed. Rylee Gran Abs 0.03 0.00 - 0.04 x10(3)/[facility] Blood 06/17/2021 8:09 AM EDT 06/17/2021 8:17 AM EDT Narrative Resulting Agency Comment Spec In Lab Andreina David APRN HEMATOLOGY ORDERABLE S [facility] [place] [address] * (ABNORMAL) Hemogram (06/17/2021 8:09 AM EDT) WBC 10.4(H) 4.0 - 9.5 x10(3)/[facility] RBC 5.12 4.00 - 5.21 x10(6)/[facility] Hemoglobin 15.0 11.7 - 15.5 gm/dL [facility] Hematocrit 46.7(H) 35.7 - 45.8 % [facility] MCV 91.2 82.6 - 94.4 fL [facility] MCH 29.3 27.1 - 32.0 pg [facility] MCHC 32.1 31.7 - 35.0 gm/dL [facility] Platelets 256 145 - 357 x10(3)/[facility] RDWSD 48.0(H) 37.0 - 46.0 [facility] RDWCV 14.5(H) 11.5 - 14.1 % [facility] MPV 10.6 7.6 - 12.9 [facility] nRBC % Auto 0.0 % [facility] nRBC Abs Auto 0.000 0.000 - 0.000 x10(3)/[facility] Blood 06/17/2021 8:09 AM EDT 06/17/2021 8:17 AM EDT Narrative Resulting Agency Comment Spec In Lab Andreina David APRN HEMATOLOGY ORDERABLE S [facility] [place] [address] * Comprehensive metabolic panel (non-fasting) (06/17/2021 8:09 AM EDT) Glucose Lvl 189 65 - 199 mg/dL [facility] Comment:Diabetes: >=200 mg/d L plus symptoms BUN 14 8 - 18 mg/dL [facility] Creatinine 0.72 0.70 - 1.20 mg/dL [facility] Sodium 137 135 - 145 mmol/L [facility] Potassium 4.0 3.5 - 5.0 mmol/L [facility] Comment: Please note: ??Patients with WBC >100,000 may have falsely elevated Potassium levels. ??For accurate Potassium quantification in these patients send serum separator tube (gold top) for subsequent determinations. ??Contact the Clinical Chemistry Laboratory if there are any questions. Chloride 99 98 - 107 mmol/L [facility] CO2 26 22 - 31 mmol/L [facility] Anion Gap 12 5 - 15 mmol/L [facility] Calcium 9.2 8.5 - 10.5 mg/dL [facility] Total Protein 7.4 6.1 - 8.0 gm/dL [facility] Albumin 4.6 3.2 - 5.2 gm/dL [facility] AST 26 0 - 30 unit/L [facility] ALT 23 0 - 30 unit/L [facility] Alk Phos 62 35 - 105 unit/L [facility] Total Bilirubin 0.3 0.2 - 1.3 mg/dL [facility] Estimated GFR 100 >=60 mL/min/1. 73 m?? [facility] Comment: This patient? s estimated [...] and symptoms in addition to eGFR. Blood 06/17/2021 8:09 AM EDT 06/17/2021 8:17 AM EDT Narrative Resulting Agency Comment Spec In Lab Andreina David APRN CHEMISTRY ORDERABLES [facility] [place] [address] * pro-Brain Natriuretic Peptide (06/17/2021 8:09 AM EDT) ProBNP 79 <=124 pg/mL [facility] Blood 06/17/2021 8:09 AM EDT 06/17/2021 8:17 AM EDT Narrative Resulting Agency Comment Spec In Lab Andreina David APRN CHEMISTRY ORDERABLES Performing Organization Address City/[facility]/ZIP Co de Phone Number [facility] [place] [address] * TSH (06/17/2021 8:09 AM EDT) TSH 0.85 0.27 - 4.20 mcIU/mL [facility] Comment: Reference Interval (mcIU/mL): Females: ??First Trimester: 0.23-3.88 ??Second Trimester: 0.22-3.90 ??Third Trimester: 0.44-4.66 Blood 06/17/2021 8:09 AM EDT 06/17/2021 8:17 AM EDT Narrative Resulting Agency Comment Spec In Lab Andreina David APRN CHEMISTRY ORDERABLES Performing Organization Address City/[facility]/ZIP Co de Phone Number [facility] [place] [address] * Lipid Panel (Reflex Direct LDL) (06/17/2021 8:09 AM EDT) Chol, Total 144 mg/dL [facility] Comment: Lower Risk: <200 mg/dL Average Risk: 200-239 mg/dL Higher Risk: >ww=979 mg/dL Triglycerides 489 mg/dL [facility] Comment: Average Risk/Lower Risk: <150 mg/dL Borderline High Risk: 150-199 mg/dL High Risk: 200-499 mg/dL Very High Risk: >hd=697 mg/dL HDL 30 mg/dL [facility] Comment: Males: ?? Higher Risk: <40 mg/dL Females: ?? Higher Risk: <50 mg/dL LDL Cholesterol Not Calculated [facility] Comment: Lowest Risk: <100 mg/dL Lower Risk: 100-129 mg/dL Borderline High Risk: 130-159 mg/dL High Risk: 160-189 mg/dL Very High Risk: >ha=212 mg/dL Calculated LDL value is not valid for triglycerides greater than 400 mg/dl.06/17/21 08:56 Chol/HDL Ratio 4.8 ratio [facility] Lipid Interpretation See Note [facility] Comment: Lipid management should be guided by a patient? s ASCVD risk, goals and preferences. ACC/AHA Guidelines recommend high intensity statin if clinical ASCVD or LDL greater than or equal to 190 mg/dL. http://[employer].com/XLP-RNT-Sshnmzhna Adults aged 40-75 with LDL 70-189 mg/dL should have their 10 year ASCVD risk estimated with the ACC/AHA ASCVD risk upholstery estimator http://tools.acc.org/HGHAQ-Ehdp-Igwkigbcq/ Statin should be discussed if risk greater [...] critical component of ASCVD risk reduction. Blood 06/17/2021 8:09 AM EDT 06/17/2021 8:17 AM EDT Narrative Resulting Agency Comment Spec In Lab Andreina David APRN CHEMISTRY ORDERABLES [facility] [place] [address] documented in this encounter Visit Diagnoses Diagnosis Other cardiomyopathy ASCVD (arteriosclerotic cardiovascular disease) Unspecified cardiovascular disease AMARO (dyspnea on exertion) Other dyspnea and respiratory abnormality documented in this encounter Care Teams Automatic Trimming Sewer Relationship Specialty Start Date End Date Edie Ellis MD [address] [place] [address] PCP - General 10/15/10 documented as of this encounter
--- OUTSIDE RECORDS SUMMARY | 2024-06-03 00:25 | XMS_ITS | Encounter Summary ---
Author Organization [place] [address] Care Team Providers Care Monitor Tech Name Role Phone Edie Ellis MD Primary Care Provider [phone] Reason for Referral * Diagnostic Test (Routine) - Closed Specialty Diagnoses / Procedures Referred By Contac t Referred To Contact Cardiology Diagnoses HFrEF (heart failure with reduced ejection fraction) Pulmonary hypertension Procedures Echocardiogram Transthoracic([facility] or [facility]) Kina Awad PA [facility] [place] [address] [facility] [place] [address] Referral ID Status Reason Start Date Expiration Date V isits Requested Visits Authorized [id number] Closed Specialty Service Requested 09/09/2021 09/09/2022 1 1 Reason for Visit * Diagnostic Test (Routine) - Closed Specialty Diagnoses / Procedures Referred By Contac t Referred To Contact Cardiology Diagnoses HFrEF (heart failure with reduced ejection fraction) Pulmonary hypertension Procedures Echocardiogram Transthoracic([facility] or [facility]) Kina Awad PA [facility] [place] [address] [facility] [place] [address] Referral ID Status Reason Start Date Expiration Date V isits Requested Visits Authorized [id number] Closed Specialty Service Requested 09/09/2021 09/09/2022 1 1 Encounter Details Date Type Department Care Team (Latest Contact Info) Description 01/02/2022 9:28 AM EST - 01/02/2022 10:47 AM EST Hospital Encounter Non-Invasive Cardiology Lab [facility], [facility] [place] [address] Alla Nash MD [facility] [place] [address] HFrEF (heart failure with reduced ejection fraction); Pulmonary hypertension Discharge Disposition: Home Social History [...] a day 03/12/2015 naloxone (Narcan) 4 mg/actuation Alloway, Non-Aerosol Once 03/10/2019 magnesium oxide (MAG-OX) 400 [...] AM EDT Hospital Encounter Non[place] [address] Arrived documented as of this encounter Procedures Procedure Name Priority Date/Time Associated Diagnosis Comments ECHO COMPLETE Routine 01/02/2022 10:18 AM EST HFrEF (heart failure with reduced ejection fraction) Pulmonary hypertension documented in this encounter Results * ECHO COMPLETE (01/02/2022 10:18 AM EST) EF 52 HEARTLAB SYSTEM Anatomical Region Laterality Modality Other 01/02/2022 Narrative 01/02/2022 10:32 AM EST Procedure: ?Transthoracic Echocardiogram Patient: ?CARSON MCCANN Sherice ? (Age): 1975(46y) Med Rec#: ? [id number] ?Sex: ?F ? Site Loc: ? [facility] ?Ht / Wt: ??163(cm)/94(kg) Pt. Loc: ?Echo Lab ?BSA: ?1.99 Study Date: ?? 01/02/2022 ?Pt. Type: Outpatient Tape: ? Referring: PRECIOUS Reading: Luke Luevano ??([id number]) Flour Worker: Wil Cuellar RDCS, BETHEL Diagnosis: *Cardiomyopathy, unspecified (I42.9) Rhythm: ? Tachycardia [...] 01/02/2022 10:31:41 Images reviewed and interpretation verified [facility] Cardiac Ultrasound Laboratory Procedure Note Luke Luevano MD - 01/02/2022 Procedure: Transthoracic Echocardiogram Patient: CARSON METZGER(Age): 1975(46y) Med Rec#: [id number] Sex: F Site Loc: [facility] Ht / Wt: 163(cm)/94(kg) Pt. Loc: Echo Lab BSA: 1.99 Study Date: 01/02/2022 Pt. Type: Outpatient Tape: Referring: PRECIOUS Reading: Luke Luevano ([id number]) Flour Worker: Wil Cuellar RDCS, FASE Diagnosis: *Cardiomyopathy, unspecified [...] 01/02/2022 10:31:41 Images reviewed and interpretation verified [facility] Cardiac Ultrasound Laboratory Alla Richardson MD ECHO ORDERAB LES documented in this encounter Visit Diagnoses Diagnosis HFrEF (heart failure with reduced ejection fraction) Pulmonary hypertension Other chronic pulmonary heart diseases documented in this encounter Care Teams Monitor Tech Relationship Specialty Start Date End Date Edie Ellis MD [address] [place] [address] PCP - General 10/15/10 documented as of this encounter
--- OUTSIDE RECORDS SUMMARY | 2024-06-03 00:25 | XMS_ITS | Encounter Summary ---
Author Organization [facility] Address [facility] [place] [address] Care Team Providers Care Playground Supervisor Name Role Phone Edie Ellis MD Primary Care Provider [phone] Reason for Visit * Consultation (Routine) - [...] to see. She sees Dr Eid at [facility]. This seems confusing that we would get a referral. Thanks! Vani Evangelista MD [facility] [place] [address] Alla Nash MD [facility] [place] [address] Referral ID Status Reason Start Date Expiration Date V isits Requested Visits Authorized [id number] Closed Consult, Test & Treat 07/01/2021 07/01/2022 1 1 Encounter Details Date Type Department Care Team ([facility] Contact Info) Description 08/16/2021 10:40 AM EDT Office Visit Cardiology at [address] [address] Kina Awad PA [facility] [place] [address] HFrEF (heart failure with reduced ejection fraction); Cardiomyopathy, unspecified type Social History Tobacco Use [...] Sign Reading Time Taken Comments Blood Pressure 104/67 08/16/2021 10:23 AM EDT Pulse 80 08/16/2021 10:23 AM EDT Temperature - - Respiratory Rate - - Oxygen Saturation 97% 08/16/2021 10:23 AM EDT Inhaled Oxygen Concentration - - Weight 93.9 kg (207 lb) 08/16/2021 10:23 AM EDT Height 162.6 cm (5' 4) 08/16/2021 10:23 AM EDT Body Mass Index 35.53 08/16/2021 10:23 AM EDT documented in this encounter Patient Instructions * Patient Instructions* Kina Awad PA - 08/16/2021 10:40 AM EDT Cardiac catheterization with Dr Gann - No metformin morning of the appointment - ThursdayAug 27, arrive at 8 am at 4W - Nothing to eat or drink after midnight documented in this encounter Progress Notes * Kina Awad PA - 08/16/2021 10:40 AM EDT Images from the original note were not included. [facility] [place] Section of Advanced Heart Failure Cardiology [facility] [place] [address] OUTPATIENT VISIT DATE: 06/09/21 OUTPATIENT VISIT TYPE: [...] Last syncopal event Aug 2020, admitted to [facility]. Loss of urine. Placed on [...] of palpitations, overall unchanged and notably rare. Patient Active Problem List Diagnosis ??? T2DM [...] by mouth daily. ??? Lancets Misc by [facility].(Non-Drug; Combo Route) route daily. ??? Miscellaneous Medical Supply [facility] 1 strip by [facility].(Non-Drug; Combo Route) route daily. ??? [...] the past 24 hrs: Pulse BP SpO2 08/16/21 1023 80 104/67 97 % GENERAL: Pleasant and in no [...] Recent Results (from the past 24 hour(s)) pro-Brain Natriuretic Peptide Result Value Ref Range ProBNP 34 <=124 pg/mL Basic Metabolic Panel (non-fasting) Result Value Ref Range Glucose Lvl 122 65 - 199 mg/dL BUN 12 8 - 18 mg/dL Creatinine 0.66 (L) 0.70 - 1.20 mg/dL Sodium 135 135 - 145 mmol/L Potassium 4.6 3.5 - 5.0 mmol/L Chloride 98 98 - 107 mmol/L CO2 28 22 - 31 mmol/L Anion Gap 9 5 - 15 mmol/L Calcium 9.5 8.5 - 10.5 mg/dL Estimated GFR 106 >=60 mL/min/1.73 m?? CARDIOLOGY RELEVANT STUDIES: CXR [...] clinic today withthe following impression and plan: Patient returns today appearing well compensated. Marked downtrend in ProBNP. She is reporting exertional chest tightness. Plan to repeat coronary angiography with [facility]. Will discuss Entresto after right heart numbers, now with mid-range reduction, she is indicated for Entresto. May not need Lasix dosing at this point. 1. Non-ischemic cardiomyopathy LVEF, RV function, Valve [...] Diuretic Lasix 20 mg daily ICD or LEAD ADVISOR-D if indicated Not indicated with LVEF >35% Other considerations Farxiga 10 mg daily Genetics appt in Sep 3. HTN BP: (104)/(67) Well controlled today in office 4. DM Lisinopril 5 mg daily Add Farxiga 10 mg daily 5. HLD - Low HDL, high TG On Crestor with LDL of 60 Moderate elevation in TG, consider icosapent ethyl RECOMMENDATIONS: Patient Instructions Cardiac catheterization with Dr Gann - No metformin morning of the appointment - ThursdayAug 27, arrive at 8 am at 4W - Nothing to eat or drink after midnight COUNSELING: The signs and symptoms to be [...] When to call our office FOLLOW UP: See after cardiac cath on Aug 27. Kina Awad PA-C documented in this encounter Plan of Treatment Upcoming Encounters Date Type Department Care Team (Late st Contact Info) Description 07/09/2024 10:00 AM EDT Hospital Encounter Non-[place] [phone] Arrived documented as of this encounter Results * pro-Brain Natriuretic Peptide (08/16/2021 9:45 AM EDT) ProBNP 34 <=124 pg/mL [facility] Blood 08/16/2021 9:45 AM EDT 08/16/2021 10:01 AM EDT Narrative Resulting Agency Comment Spec In Lab Alla Richardson MD CHEMISTRY OR DERABLES [facility] [place] [address] * (ABNORMAL) Basic Metabolic Panel (non-fasting) (08/16/2021 9:45 AM EDT) Glucose Lvl 122 65 - 199 mg/dL [facility] Comment:Diabetes: >=200 mg/d L plus symptoms BUN 12 8 - 18 mg/dL [facility] Creatinine 0.66(L) 0.70 - 1.20 mg/dL [facility] Sodium 135 135 - 145 mmol/L [facility] Potassium 4.6 3.5 - 5.0 mmol/L [facility] Comment: Please note: ??Patients with WBC >100,000 may have falsely elevated Potassium levels. ??For accurate Potassium quantification in these patients send serum separator tube (gold top) for subsequent determinations. ??Contact the Clinical Chemistry Laboratory if there are any questions. Chloride 98 98 - 107 mmol/L [facility] CO2 28 22 - 31 mmol/L [facility] Anion Gap 9 5 - 15 mmol/L [facility] Calcium 9.5 8.5 - 10.5 mg/dL [facility] Estimated GFR 106 >=60 mL/min/1. 73 m?? [facility] Comment: This patient? s estimated [...] MD CHEMISTRY OR DERABLES Performing Organization Address City/State/[facility] Co de Phone Number [facility] [place] [address] documented in this encounter Visit Diagnoses Diagnosis HFrEF (heart failure with reduced ejection fraction) Cardiomyopathy, unspecified type documented in this encounter Care Teams Playground Supervisor Relationship Specialty Start Date End Date Edie Ellis MD [address] [place] [address] PCP - General 10/15/10 documented as of this encounter
--- OUTSIDE RECORDS SUMMARY | 2024-06-03 00:26 | XMS_ITS | Encounter Summary ---
Author Organization [facility] Address [address] [place] [address] Care Team Providers Care Dental Assistant Instructor Name Role Phone Edie Ellis MD Primary Care Provider [phone] Encounter Details Date Type Department Care Team (Late st Contact Info) Description 06/11/2020 Lab Requisition [facility] Pathology & Laboratory Medicine - [facility] [address] [place] [address] Oscar Keen MD [address] [place] [address] Infection following a procedure, organ and space surgical site, subsequent encounter; Lower abdominal pain, unspecified Social History Tobacco Use Types Packs/Day Years Used Date Smoking Tobacco: Never Assessed Sex and Gender Information Value Date Recorded Sex Assigned at Not on file Gender Identity Not on file Sexual Orientation Not on file documented as of this encounter Plan of Treatment Not on file documented as of this encounter Visit Diagnoses Diagnosis Infection following a procedure, organ and space surgical site, subsequent encounter Lower abdominal pain, unspecified documented in this encounter Care Teams Dental Assistant Instructor Relationship Specialty Start Date End Date Edie Ellis MD [facility] [address] [phone] PCP - General 03/21/19 documented as of this encounter
--- OUTSIDE RECORDS SUMMARY | 2024-06-03 00:26 | XMS_ITS | Encounter Summary ---
Author Organization [facility] Address [address] [place] [address] Care Team Providers Care Advertising Material Distributor Name Role Phone Edie Ellis MD Primary Care Provider [phone] Encounter Details Date Type Department Care Team ([facility] st Contact Info) Description 08/08/2021 Lab Requisition [facility] Pathology & Laboratory Medicine - [facility] [address] [place], [place] [address] Outr Resulting Lab, Provider Social History Tobacco Use Types Packs/Day Years Used Date Smoking Tobacco: Never Assessed Interpersonal Safety Answer Date Record ed Physically Hurt Never 06/24/2020 Verbally Threaten Not on file 06/24/2020 Sex and Gender Information Value Date Recorded Sex Assigned at Not on file Gender Identity Not on file Sexual Orientation Not on file documented as of this encounter Plan of Treatment Not on file documented as of this encounter Procedures Procedure Name Priority Date/Time Associated Diagnosis Comments ZZCOVID-19 TEST [facility] PCR Today 08/07/2021 20:10 EDT COVID-19 TESTING Routine 08/07/2021 20:1 0 EDT documented in this encounter Results * COVID-19 TEST [facility] PCR (08/07/2021 20:10 EDT) Swab ENTIRE NASOPHARYNX / Unknown 08/07/2021 20:10 EDT 08/08/2021 16:02 EDT Provider Outr Resulting Lab MICROBIOLOGY - GENERAL ORDERABLES [facility] [address] [place] [address] * COVID-19 TESTING (08/07/2021 20:10 EDT) COVID-19 rt-PCR Result Negative Negative 08/09/2021 12:04 EDT [facility] Comment: This test has not been FDA cleared or approved. This test has been authorized by FDA under an EUA for use by authorized laboratories. This test has been authorized only for detection of nucleic acid from 2019-nCoV, not for any other viruses or pathogens. This test is only authorized for the duration of the declaration that circumstances exist justifying the authorization of emergency use of in vitro diagnostic tests for detection and/or diagnosis of 2019-nCoV under section 564(b)(1) of Act, 21 U.S.C ?? 360bbb-3(b) (1), unless the authorization is terminated or revoked sooner. Negative results do not preclude 2019-nCoV infection and should not be used as the sole basis for treatment or other patient management decisions. Negative results must be combined with clinical observations, patient history, and epidemiological information. Testing was performed using the julieta SARS-CoV-2 assay ([employer] on the Julieta 6800 System Performing Lab Julieta 68[address] [facility] Lab 08/09/2021 12:04 EDT [facility] Swab 08/07/2021 20:1 0 EDT 08/08/2021 16:02 EDT Provider Outr Resulting Lab MICROBIOLOGY - GENERAL ORDERABLES [facility] [address] [place] [address] documented in this encounter Visit Diagnoses Not on filedocumented in this encounter Care Teams Advertising Material Distributor Relationship Specialty Start Date End Date Edie Ellis MD [address] [place] [id number] PCP - General 03/21/19 documented as of this encounter
--- OUTSIDE RECORDS SUMMARY | 2024-06-03 00:26 | XMS_ITS | Encounter Summary ---
[place] [address] Care Team Providers Care Social Work Professor Name Role Phone Edie Ellis MD Primary Care Provider [phone] Reason for Visit * Reason Comments Back Pain Encounter Details Date Type Department Care Team (Late st Contact Info) Description 01/30/2012 Telephone [place] [address] Madelyn Campa, RN Back Pain Social History Tobacco Use Types Packs/Day Years Used Date Smoking Tobacco: Former Alcohol Use Standard Drinks/Week Comments Not Asked 0 (1 standard drink = 0.6 oz pur e alcohol) Sex and Gender Information Value Date Recorded Sex Assigned at Female 10/05/2021 11:32 AM EST Gender Identity Female 10/05/2021 11:32 AM EST Sexual Orientation Straight 10/05/2021 11 :32 AM EST documented as of this encounter Miscellaneous Notes * Telephone Encounter - Madelyn Campa, RN - 01/30/2012 2:47 PM EST Ms. Gotltieb called in tears stating she is in excruciating pain and doesn't know what to do. She had an MRI at [facility] but doesn't think she could tolerate the ride here, but if she goes to the local EDthey won't have the most current MRI to review if they decide to do another one. I tried to calm her down and told her that she should go to the local ED and they could call for the report or perhaps the radiology department would be able to digitally send the images. She voiced understanding. Patient knows how to contact the [facility] with any further questions or concerns. documented in this encounter Plan of Treatment Upcoming Encounters Date Type Department Care Team (Late st Contact Info) Description 07/09/2024 10:00 AM EDT Hospital Encounter Non-[place] [address] Arrived documented as of this encounter Visit Diagnoses Not on filedocumented in this encounter Care Teams Social Work Professor Relationship Specialty Start Date End Date Edie Ellis MD [address] [facility] [address] [place] [address] PCP - General 10/15/10 documented as of this encounter
--- OUTSIDE RECORDS SUMMARY | 2024-06-03 00:26 | XMS_ITS | Encounter Summary ---
Author Organization [facility] Address [address] [place] [address] Care Team Providers Care Code Enforcement Officer Name Role Phone Edie Ellis MD Primary Care Provider [phone] Encounter Details Date Type Department Care Team (Late st Contact Info) Description 08/28/2020 Lab Requisition [facility] Pathology & Laboratory Medicine - [facility] [address] [place], [place] [address] Outr Resulting Lab, Provider Social History Tobacco [...] Comments ZZCOVID-19 TEST [facility] PCR Today 08/28/2020 0:40 EDT COVID-19 TESTING Routine 08/28/2020 0:40 EDT documented in this encounter Results * COVID-19 TEST [facility] PCR (08/28/2020 0:40 EDT) Swab ENTIRE NASOPHARYNX / Unknown 08/28/2020 0:40 EDT 08/28/2020 8:59 EDT Provider Outr Resulting Lab MICROBIOLOGY - GENERAL ORDERABLES [facility] [address] [place] [address] * COVID-19 TESTING (08/28/2020 0:40 EDT) COVID-19 rt-PCR Result Negative Negative 08/28/2020 12:58 EDT [facility] Comment: This test has [...] clinical observations, patient history, and epidemiological information. Performed on the [employer] instrument Performing Lab [facility] Lab 08/28/2020 12:58 EDT [facility] Swab 08/28/2020 0:40 EDT 08/28/2020 8:59 EDT Provider Outr Resulting Lab MICROBIOLOGY - GENERAL ORDERABLES [facility] [address] [place] [address] documented in this encounter Visit Diagnoses Not on filedocumented in this encounter Care Teams Code Enforcement Officer Relationship Specialty Start Date End Date Edie Ellis MD [address] [place] [phone] PCP - General 03/21/19 documented as of this encounter
--- OUTSIDE RECORDS SUMMARY | 2024-06-03 00:26 | XMS_ITS | Encounter Summary ---
Author Organization Pending Sale To [facility] Address [facility] [place] [address] Care Team Providers Care Show Jumping Instructor Name Role Phone Edie Ellis MD Primary Care Provider [phone] Encounter Details Date Type Department Care Team (Late st Contact Info) Description 06/03/2012 10:58 AM EDT - 06/03/2012 12:26 PM EDT [place] [address] Carine Gill MD [facility] [place] [address] PERC IMPLANTATION NEUROSTIMULATOR ELECTRODE ARRAY, EPIDURAL (WRVU 7.15) Social History Tobacco Use Types Packs/Day Years [...] Sign Reading Time Taken Comments Blood Pressure 114/81 06/03/2012 10:16 AM EDT Pulse 78 06/03/2012 10:16 AM EDT Temperature 36.1 ??C (97 ??F) 06/03/2012 10:16 AM EDT Respiratory Rate 20 06/03/2012 10:16 AM EDT Oxygen Saturation 99% 06/03/2012 10:16 AM EDT Inhaled Oxygen Concentration - - Weight 99.8 kg (220 lb) 06/03/2012 10:16 AM EDT Height 162.6 cm (5' 4) 06/03/2012 10:16 AM EDT Body Mass Index 37.76 06/03/2012 10:16 AM EDT documented in this encounter Discharge Instructions * Discharge Instructions* Mackenzie Wright RN - 06/03/2012 1:57 PM EDT PATIENT INSTRUCTIONS POST-ANESTHESIA IMMEDIATELY FOLLOWING SURGERY: Do not drive or operate machinery for the first twenty four hours after surgery. Do not make any important decisions for twenty four hours after surgery or while takingnarcotic pain medications or sedatives. If you develop intractable nausea and vomiting or a severe headache please notify your doctor immediately. FOLLOW-UP: Please make an appointment with your surgeon as instructed. You do not need to follow upwith anesthesia unless specifically instructed to do so. WOUND CARE INSTRUCTIONS (if applicable): Keep a dry clean dressing on the anesthesia/puncture woundsite if there is drainage. Once the wound has quit draining you may leave it open to air. Generallyyou should leave the bandage intact for twenty four hours unless there is drainage. If the epiduralsite drains for more than 36-48 hours please call the anesthesia department. QUESTIONS?: Please feel free to call your physician or the hospital bench assembler operator if you have any questions, and they will be happy to assist you. [facility] Anesthesia Department [address] [place] [address] * Patient Instructions* Heaven Mariano MD - 06/03/2012 2:01 PM EDT We will see you on 06/09 at 2:15 in the afternoon to follow up with your trial. Please call us if you have increased pain, bleeding, pus, swelling or any other concerning finding over your dressing site. Also, if you have any sign of infection such as fevers or chills call us right away. Avoid bending, twisting motions while undergoing the trial. Do not soak in a bath, hot tub or pool until after the trial. Please do not get the dressing wet. If possible, use sponge baths until we see you in clinic. Call [phone] with any questions. documented in this encounter Medications at Time of Discharge Medication Sig Dispensed Refills Start Date End Date naratriptan (AMERGE) 2.5 mg tablet Take 2.5 [...] capsule Take 20 mg by mouth daily. HYDROmorphone (DILAUDID) 2 mg tablet Take 1 tablet by mouth every 4 hours as needed for Pain. 20 tablet 0 06/03/2012 07/15/2023 PARoxetine (PAXIL) 20 mg tablet Take 60 mg by mouth every morning. 01/02/2022 lisinopril (PRINIVIL;ZESTRIL) 5 mg tablet Take 5 mg by mouth daily. 06/17/2021 diaZEPam (VALIUM) 5 mg tablet Take 5 mg by mouth every 6 hours as needed. 04/29/2014 Lancets Misc by [facility].(Non-Drug; Combo Route) route daily. 06/17/2021 Miscellaneous Medical Supply [facility] 1 strip by [facility].(Non-Drug; Combo Route) route daily. 06/17/2021 clonAZEpam (KLONOPIN) 1 mg tablet Take 1 mg by mouth 2 times daily as needed. 01/02/2022 cyclobenzaprine (FLEXERIL) 10 mg tablet Take 10 mg by mouth 3 times daily as needed. 04/29/2014 HYDROmorphone (DILAUDID) 2 mg tablet Take 2 mg by mouth 2 times daily as needed. 03/26/2011 03/30/2014 gabapentin (NEURONTIN) 300 mg capsule Take 300 mg by mouth 3 times daily. 03/30/2014 ibuprofen (ADVIL;MOTRIN) 600 mg tablet 600 MG = 1 Tablet(s), PO, Q6H 03/05/2010 06/17/2021 documented as of this encounter H&P Notes * Heaven aMriano MD - 06/03/2012 12:03 PM EDT Patient's health status has not changed since her pre-op H+P. She denies any signs or symptoms of infection. documented in this encounter Procedure Notes * Provider, Scanning - 06/04/2012 1:25 AM EDTAssociated Order(s): SCAN DOC: IMPLANTABLE DEVICES documented in this encounter Miscellaneous Notes * Miscellaneous - Provider, Scanning - 06/04/2012 1:18 AM EDT * Miscellaneous - Provider, Scanning - 06/04/2012 1:14 AM EDT * OR Attestation - Carine Gill MD - 06/03/2012 1:31 PM EDT Attestation: Case Date: 06/03/2012 I was present and I participated during the entire procedure (does not need to include opening and closing). CARINE GILL MD 06/03/2012 * Brief Op Note - Carine Gill MD - 06/03/2012 1:30 PM EDT Brief Operative Note Patient Name: Jammie Gottlieb : [id number] MR#: [id number] Case Date: 06/03/2012 Surgeon: Surgeon(s) and Role: * CARINE GILL MD - Primary * WINSTON KERR MD Preoperative diagnosis: lumbar radiculopathy Postoperative diagnosis: lumbar radiculopathy Procedure(s): PERC IMPLANTATION NEUROSTIMULATOR ELECTRODE ARRAY, EPIDURAL Anesthesia: MAC Estimated Blood Loss: Minimal Disposition: aroused from sedation, and taken to the recovery room in a stable condition Condition: doing well without problems (Please see the Surgical Encounter Summary for any Implant and Specimen details pertinent to this patient.) * Miscellaneous - Provider, Scanning - 06/03/2012 1:16 PM EDT * Op Note - Heaven Mariano MD - 06/03/2012 12:00 AM EDT [facility] Operative Note Patient Name: Jammie Gottlieb : [id number] MR#: [id number] Case Date: 06/03/2012 Surgeon: Surgeon(s) and Role: * CARINE GILL MD - Primary * MD Juvenal GOODMAN MD Preoperative diagnosis: lumbar radiculopathy Postoperative diagnosis: lumbar radiculopathy Procedure(s): PERC IMPLANTATION NEUROSTIMULATOR ELECTRODE ARRAY, EPIDURAL Anesthesia: MAC Estimated Blood Loss: 2cc Drains: none Disposition: aroused from sedation, and taken to the recovery room in a stable condition Condition: doing well without problems (Please see the Surgical Encounter Summary for any Implant and Specimen details pertinent to this patient.) HPI/Surgical Indications: Left leg and low back pain that is chronic and refractory to conservativetherapy. Procedure Description: Patient was brought into OR 6. She placed herself in the prone position. Herback was prepped and draped in sterile fashion. The L2 pedicle on the right side was identified andanesthetized with 1% lidocaine with epinephrine. The 14G touhy was advanced until lamina was encountered. Using JOSHUA technique with air, the epidural space was identified and an 8 contact cylidrical lead was advanced into the epidural space. It was advanced to the base of the T8 endplate. The lead was then secured to the skin with steri-strips and mastisol. A tegaderm was applied over the skin andthe patient was taken to the recover room. When in the same day area, patient complained about right foot pain which was new from previous pain which is more left leg pain. Her coverage with the SCS then changed to abdominal instead of left leg and low back which she initially had in the same day area with the BS rep. Therefore, the lead was pulled. The skin was cleaned and bandaids were applied to the skin. Patient was given 20 2mg dilaudid tablets - 2-4 mg every 6 hours prn pain and then sent home. She will return tomorrow to the pain clinic at [address] Gill to make sure the new right foot pain is improving. documented in this encounter Plan of Treatment Upcoming Encounters Date Type Department Care Team (Late st Contact Info) Description 07/09/2024 10:00 AM EDT Hospital Encounter [place] [id number] Arrived Pending Results Name Type Priority Associated Diagnoses Date /Time XR Fluoro OR c-arm storage only Imaging Routine 06/03/2012 1:47 PM EDT Scheduled Orders Name Type Priority Associated Diagnoses Orde r Schedule XR Fluoro OR c-arm storage only Imaging Routine Once PRN (for Ra diant use) for 1 Occurrences starting 06/03/2012 until 06/03/2012 documented as of this encounter Procedures Procedure Name Priority Date/Time Associated Diagnosis Comments IMPLANTABLE DEVICES SCAN 06/04/2012 1:25 AM EDT PERC IMPLANTATION NEUROSTIMULATOR ELECTRODE ARRAY, EPIDURAL (WRVU 7.15) 06/03/2012 11:59 AM EDT lumbar radiculopathy documented in this encounter Results * SCAN DOC: IMPLANTABLE DEVICES (06/04/2012 1:25 AM EDT) Narrative 06/04/2012 1:25 AM EDT Procedure Note Provider, Scanning - 06/04/2012 1:25 AM EDT Scanning Provider MEDIA MGR SCAN EXT O RDR/RSLT documented in this encounter Visit Diagnoses Not on filedocumented in this encounter Administered Medications Inactive Administered Medications - up to 3 most recent administrations Medication Order MAR Action Action Date Dose Rate Site bacitracin injection ONCE PRN, Starting on Bell 06/03/12 at 1238, Until Bell 06/03/12 at 2148, Intra-Operative (Intra-Procedure), Routine Given 06/03/2012 12:38 PM EDT 10,000 Units 19- Surgical Site lidocaine-epiNEPHrin e 1 %-1:200,000 injection ONCE PRN, Starting on Bell 06/03/12 at 1238, Until Bell 06/03/12 at 2148, Intra-Operative (Intra-Procedure), Routine Given 06/03/2012 12:38 PM EDT 7 mLs 19- Surgical Site vancomycin 1 g in sodium chloride 0.9% 250 mL 1,000 mg (1 g), Intravenous, at 166.7 mL/hr, ONCE, 1 dose, On Bell 06/03/12 at 1030, Give over 60-90 minutes. Do not exceed 1 gram/hour. Vancomycin should be administered within 2 hours prior to incision. Re-dose after 8 hours., Day of Surgery (Day of Procedure), Routine Given 06/03/2012 11:50 AM EDT 1,000 mg 166.7 mL/hr documented in this encounter Active and Recently Administered Medications Times are shown in EDT. Scheduled Medication Order 06/01/2012 06/02/2012 06/03/2012 vancomycin 1 g in sodium chloride 0.9% 250 mL (COMPLETED) 1,000 mg (1 g), Intravenous, at 166.7 mL/hr, ONCE, 1 dose, On Bell 06/03/12 at 1030, Give over 60-90 minutes. Do not exceed 1 gram/hour. Vancomycin should be administered within 2 hours prior to incision. Re-dose after 8 hours., Day of Surgery (Day of Procedure), Routine 1030 (Due)1150 (Give n - Provider: Leticia Rodriguez RN - Comment: started by Richie Kaiser CRNA) PRN Medication Order 06/01/2012 06/02/2012 06/03/2012 bacitracin injection (CANCELED) ONCE PRN, Starting on Bell 06/03/12 at 1238, Until Bell 06/03/12 at 2148, Intra-Operative (Intra-Procedure), Routine 1238 (Given - Provid er: Carine Gill MD) lidocaine-epiNEPHrine 1 %-1:200,000 injection (CANCELED) ONCE PRN, Starting on Bell 06/03/12 at 1238, Until Bell 06/03/12 at 2148, Intra-Operative (Intra-Procedure), Routine 1238 (Given - Provid er: Carine Gill MD) documented in this encounter Care Teams Show Jumping Instructor Relationship Specialty Start Date End Date Edie Ellis MD [facility] MORALES GRANADOS [facility] [address] [place] [address] PCP - General 10/15/10 documented as of this encounter
--- OUTSIDE RECORDS SUMMARY | 2024-06-03 00:26 | XMS_ITS | Encounter Summary ---
Author Organization [facility] [place] [address] Care Team Providers Care Core Filer Name Role Phone Edie Ellis MD Primary Care Provider [phone] Encounter Details Date Type Department Care Team (Late st Contact Info) Description 09/07/2013 9:00 AM EDT - 09/07/2013 10:00 AM EDT [place] [address] Suhas Tavares MD [facility] [place] [address] CARDIAC CATHETERIZATION Social History Tobacco Use Types [...] Sign Reading Time Taken Comments Blood Pressure 122/68 09/07/2013 3:25 PM EDT Pulse 74 09/07/2013 3:25 PM EDT Temperature 36.2 ??C (97.2 ??F) 09/07/2013 11:48 AM E DT Respiratory Rate 16 09/07/2013 3:25 PM EDT Oxygen Saturation 97% 09/07/2013 3:25 PM EDT Inhaled Oxygen Concentration - - Weight 110.9 kg (244 lb 8 oz) 09/07/2013 8:44 AM EDT Height 162.6 cm (5' 4) 09/07/2013 8:44 AM EDT Body Mass Index 41.97 09/07/2013 8:44 AM EDT documented in this encounter Discharge Instructions * Discharge Instructions* Adriana Trinh RN - 09/07/2013 2:56 PM EDT Activity If you are discharged the same day as your procedure, do not drive yourself home. Arrange to have another person drive. You may walk around when you get home, but keep your activity at a minimum until the morning. Do not bend over, strain, or lift heavy objects for 24 hours after the procedure. Do not participate in active sports for 48 hours. You may engage in sexual activity after 48 hours. These restrictions will not apply if the catheter was placed in a blood vessel in your arm. Catheter Insertion Area Care Take the band-aid off the catheter insertion area the morning following the procedure. You may takea shower if you wish. Wash the area with soap and water. Look for signs of infection over the next several days. A little spot of blood at the catheter insertion area is not unusual. A bruise or small lump under the skin is normal; they generally disappear in 3-4 days. For the first several days at home if you cough or sneeze, hold your groin to help prevent bleeding. Expect some mild tenderness over the area where the catheter was inserted. You will notice this after the local anesthetic (numbing medicine) wears off. This should improve during the 24-48 hours after the procedure. Take tylenol if needed. Contact your doctor if the discomfort worsens. Problems to Watch For If there is bright red blood flowing from the catheter insertion area: *stop what you are doing and lie down *Hold pressure steadily on the area for 15 minutes *Call for Help *If the bleeding does not stop in 15 minutes call 911 for an ambulance. If there is swelling with black and blue color at the catheter insertion area, there may be bleeding inside. Contact the doctor if there is any increase in size. Look at the insertion site for the first few days at home. Signs of infection are: *redness *Swelling *Yellow, white, green or brown foul smelling drainage. *increased soreness If you think there is an infection, take your temperature. Then call your doctor. The limb on the side where you had your catheterization should look and feel normal in its color, sensation, and temperature. If your leg becomes cool, pale, blue or changing color with numbness and tingling, contact your doctor. If you feel faint or dizzy, lie down with your feet elevated. Have someone call the doctor. If you are alert, drink fluids. How to Deal with Chest pain If you had only the cardiac catheterization, treat any angina or chest discomfort as instructed. Stop what you are doing, and sit or lie down. If prescribed, take nitroglycerin under your tongue. If the angina isn't relieved, take another nitroglycerine in 5 minutes. After another 5 minutes, a third nitroglycerine may be taken. If the angina isn't improved you should call for an ambulance to bring you to the nearest hospital emergency room. If your angina is more frequent or more sever than before, contact your doctor. We usually would not expect to have angina after an angioplasty. If you do get angina, treat it as you did before but also contact your doctor. Return to Work The doctor will usually have told you when to return to work. If you do not perform heavy physical labor, most people can return to work in a few days. Diet Follow your previous diet unless otherwise instructed. Cardiac Risk Factors If you have coronary artery disease, it is important that you help control it by reducing your cardiac risk factors. If you smoke, we urge you to stop now. If you think this is going to be a problem,let us know so that we may help you. We have dieticians who can help you learn about low fat, low cholesterol diet. Cardiac rehabilitation programs can help you set up a regular exercise program. Work with your doctor if you have high blood pressure or sugar diabetes to keep these under control. Medications ____Take your usual medications ____Medication changes: If you are taking medicines prescribed by your doctor, do not take any [id number]-[id number] medicines or herbal preparations without first discussing this with your doctor or pharmacist. There is the possibility of side effect and interactions when these are combined. Follow up Care Who to Call with Questions or Problems If there are any questions or problems that you think might be related to your cardiac cath or angioplasty, contact the process tech product operations associate by calling [facility] at . documented in this encounter Medications at Time of Discharge Medication Sig Dispensed Refills Start Date End Date rosuvastatin (CRESTOR) 10 mg tablet Take 10 [...] capsule Take 20 mg by mouth daily. promethazine (PHENERGAN) 25 mg tablet Take 25 mg by mouth every 6 hours as needed. 06/17/2021 clopidogrel (PLAVIX) 75 mg tablet Take 75 mg by mouth daily. 03/30/2014 spironolactone (ALDACTONE) 25 mg tablet Take 12.5 [...] hours as needed. 04/29/2014 [place]isc [place] [facility]; Combo Route) route daily. 06/17/2021 Miscellaneous Medical Supply [facility] 1 strip by [facility]Non-Drug; Combo Route) route daily. 06/17/2021 clonAZEpam (KLONOPIN) [...] 03/05/2010 06/17/2021 documented as of this encounter Progress Notes * Adriana Trinh RN - 09/07/2013 3:32 PM EDT Pt OOB, AMB to BR without diff, voided qs site clean and dry * Adriana Trinh RN - 09/07/2013 12:[address] PM [address]T Seen by Dr Tavares * Shantel Sommer RN - 09/07/2013 12:35 PM EDT Pt sipping coffee. Yoni at her side. Eating a sandwich. Groin site negative. * Hemant Muniz - 09/07/2013 10:46 AM EDT ABSORB III SCREEN FAILURE NOTE ABSORB III RANDOMIZED CONTROLLED TRIAL A Clinical Evaluation of Absorb??? BVS, the Everolimus Eluting Bioresorbable Vascular Scaffold in the Treatment of Subjects with de daniel [place] Coronary Artery Lesions PI: Jonathan Silva MD Pager #:[phone] Research Coordinators: Hemant Muniz, BS, BA, MECHANICAL PIPING DESIGNER Pager #:[phone] Santos Quach, CHARLY Pager #: [phone] Purpose: The pivotal trial to support the [place] pre-market approval (PMA) of Absorb BVS. ABSORB III will evaluate the safety and effectiveness of the Absorb BVS System compared to the XIENCE in the treatment of subjects, including those with diabetes mellitus, with ischemic heart disease caused by up to two denovo [place] coronary artery lesions in separate epicardial vessels. Study Design: A prospective, randomized (2:1 ABSORB BVS to XIENCE), single-blind, multi-center trial registering ~2250 patients. Angiographic Inclusion Criteria: 1. One or two de daniel target lesion(s): a. If there is one target lesion, a second non-target lesion may be treated but the non-target lesion must be present in a different epicardial vessel, and must be treated first with a successful, uncomplicated result prior to randomization of the target lesion. b. If two target lesions are present, they must be present in different epicardial vessels and bothmust satisfy the angiographic eligibility criteria. c. The definition of epicardial vessels means the LAD, LCX and RCA and their branches. Thus, the patient must not have lesions requiring treatment in e.g. both the LAD and a diagonal branch. 2. Target lesion(s) must be located in a [place] coronary artery with a visually estimated or quantitatively assessed %DS of ? 50% and < 100% with a TONYA flow of ? 1 and one of the following: stenosis ? 70%, an abnormal functional test (e.g., fractional flow reserve, stress test), unstable anginaor post-infarct angina. a. Lesion(s) must be located in a [place] coronary artery with RVD by visual estimation of ? 2.50 mmand ? 3.75 mm. b. Lesion(s) must be located in a [place] coronary artery with length by visual estimation of ? 24 mm. Angiographic Exclusion Criteria: 1. Lesion which prevents successful balloon pre-dilatation, defined as full balloon expansion with the following outcomes: - Residual %DS is a maximum < 40% (per visual estimation), ? 20% is strongly recommended. -TONYA Grade-3 flow (per visual estimation). - No angiographic complications (e.g. distal embolization, side branch closure). - No dissections NHLBI grade D-F. - No chest pain lasting > 5 minutes. - No ST depression or elevation lasting > 5 minutes. 2. Lesion is located in left main. 3. Aorto-ostial RCA lesion (within 3 mm of the ostium). 4. Lesion located within 3 mm of the origin of the LAD or LCX. 5. Lesion involving a bifurcation with a: a. side branch ? 2 mm in diameter, or b. side branch with either an ostial or non-ostial lesion with diameter stenosis > 50%, or c. side branch requiring pre-dilatation or protection guide wire 6. Anatomy proximal to or within the lesion that may impair delivery of the Absorb BVS or XIENCE stent: b. Extreme angulation (? 90??) proximal to or within the target lesion. c. Excessive tortuosity (? two 45?? angles) proximal to or within the target lesion. d. Moderate or heavy calcification proximal to or within the target lesion. If IVUS used, subject must be excluded if calcium ARC in the vessel prior to the lesion or within the lesion is ? 180??. 7. Vessel contains thrombus as indicated in the angiographic images or by IVUS or OCT. 8. Lesion or vessel involves a myocardial bridge. 9. Vessel has been previously treated with a stent at any time prior to the index procedure such that the Absorb BVS or XIENCE would need to cross the stent to reach the target lesion. 10. Vessel has been previously treated and the target lesion is within 5 mm proximal or distal to apreviously treated lesion. 11. Target lesion located within an arterial or saphenous vein graft or distal to any arterial or saphenous vein graft. The subject was deemed ineligible for participation in the ABSORB III clinical trial based on Angiographic Inclusion Criteria number(s): 1 referenced above. Non-obstructed coronary arteries (no target lesion). * Hemant Muniz - 09/07/2013 8:42 AM EDT ABSORB III RANDOMIZED CONTROLLED TRIAL A Clinical Evaluation of Absorb??? BVS, the Everolimus Eluting Bioresorbable Vascular Scaffold in the Treatment of Subjects with de daniel [place] Coronary Artery Lesions PI: Jonathan Silva MD Pager #:[phone] Research Coordinators: Hemant Muniz, BS, BA, MECHANICAL PIPING DESIGNER Pager #:[phone] Santos Quach RN Pager #: [phone] Purpose: The pivotal trial to support the [place] pre-market approval (PMA) of Absorb BVS. ABSORB III will evaluate the safety and effectiveness of the Absorb BVS System compared to the XIENCE in the treatment of subjects, including those with diabetes mellitus, with ischemic heart disease caused by up to two denovo [place] coronary artery lesions in separate epicardial vessels. Study Design: A prospective, randomized (2:1 ABSORB BVS to XIENCE), single-blind, multi-center trial registering ~2250 patients. Consent: Following the determination this potential participant did not have any obvious evidence of clinical exclusion to the ABSORB III Randomized Controlled Trial, the subject was provided with a written informed consent. The purpose, procedures, risks, potential benefits of the study, as well as alternatives to participation were reviewed and questions were answered. The subject signed the informed consent agreeing to participate, providing angiographic inclusion criteria are satisfied. The subject was provided with a copy of the signed informed consent document. documented in this encounter H&P Notes * Luke Luevano M - 09/07/2013 8:41 AM EDT Pre-Cardiac Catheterization 24 hr Update Please see Dr. Taurus Menjivar note dated 08/31/13 for full details regarding reason for referral for cardiac catheterization. There has been no significant interval change in clinical status since thatvisit. Patient referred for LHC and RHC for cardiomyopathy of unclear etiology and recurrent chest pain. Labs dated 08/31/13 reviewed and within normal limits proceed to cath. Luke Luevano MD Pager [phone] High School Science Tutor documented in this encounter Procedure Notes * Provider, Scanning - 09/07/2013 7:22 PM EDTAssociated Order(s): SCAN DOC: CARDIAC CATH documented in this encounter Miscellaneous Notes * Miscellaneous - Provider, Scanning - 09/07/2013 7:22 PM EDT * Miscellaneous - Provider, Scanning - 09/07/2013 3:29 PM EDT * Discharge Summary - Suhas Tavares MD - 09/07/2013 11:44 AM EDT [facility] SAME DAY DISCHARGE SUMMARY Jammie Gottlieb 09/07/2013 Primary Care Provider: EDIE ELLIS MD Referring Claims Vice President: Taurus Menjivar MD Procedures: Left heart catheterization, coronary angiography, peripheral angiography. Indication: Jammie Gottlieb is a 38 y.o. female with cardiomyopathy (TTE 07/2013 LVEF=40%, LVEDD=52 , generalized LV hypokinesis, normal PA pressures) felt to possibly be vanessa-, diabetes, hyperlipidemia, obesity and smoking referred for cardiac catheterization because of worsening chest discomfort.. Hospital Course: The procedure, risks, benefits and alternative approaches were reviewed with Ms. Gottlieb and her questions answered. Subsequently, cardiac catheterization was performed via the right femoral artery using 4 Fr catheters. Hemostasis was obtained with local compression. The procedure was well tolerated and there were no complications. The findings were reviewed with Ms. Gottlieb and her . After observation and ambulation in Same Day Surgery, Ms. Gottlieb was discharged. She was discharged on her usual medications. Cardiology follow-up will continue with Dr. Menjivar, who was contacted. Findings: 1. Nonobstructive coronary artery disease with mild diffuse disease, left coronary dominance. 2. Left ventricular pressure = 115/17 mmHg. Suhas Tavares M.D. documented in this encounter Plan of Treatment Upcoming Encounters Date Type Department Care Team (Late st Contact Info) Description 07/09/2024 10:00 AM EDT Hospital Encounter Non-[place] [address] Arrived documented as of this encounter Procedures Procedure Name Priority Date/Time Associated Diagnosis Comments CARDIAC CATH SCAN 09/07/2013 7:2 2 PM EDT EKG 12-LEAD Routine 09/07/2013 9:28 AM EDT CAD (coronary artery disease) documented in this encounter Results * SCAN DOC: CARDIAC CATH (09/07/2013 7:22 PM EDT) Anatomical Region Laterality Modality Other Narrative 09/07/2013 7:24 PM EDT Procedure Note Provider, Scanning - 09/07/2013 7:22 PM EDT Scanning Provider MEDIA MGR SCAN EXT O RDR/RSLT * EKG 12 Lead (09/07/2013 9:28 AM EDT) Ventricular rate 78 BPM MUSE SYSTEM Atrial Rate 78 BPM MUSE SYSTEM P-R Interval 144 ms MUSE SYSTEM QRS Duration 80 ms MUSE SYSTEM Q-T Interval 412 ms MUSE SYSTEM QTC Calculated (Bezet) 469 ms MUSE SYSTEM Calculated P [place] 14 degrees MUSE SYSTEM Calculated R [place] 7 degrees MUSE SYSTEM Calculated T [place] 13 degrees MUSE SYSTEM INTERPRETATION Normal sinus rhythm Normal ECG When compared with ECG of 19-DEC-2009 12:47, No significant change was found Confirmed by Rainer Nova MD ([id number]) on 09/09/2013 8:09:14 AM MUSE SYSTEM 09/07/2013 9:28 AM EDT 09/09/2013 8:09 AM EDT Jonathan Tapia MD ECG ORDERABLES MUSE SYSTEM documented in this encounter Visit Diagnoses Diagnosis Cardiomyopathy Other primary cardiomyopathies CAD (coronary artery disease) Coronary atherosclerosis of unspecified type of vessel, [place] or graft Cardiomyopathy Other primary cardiomyopathies documented in this encounter Administered Medications Inactive Administered Medications - up to 3 most recent administrations Medication Order MAR Action Action Date Dose Rate Site clonAZEpam (KLONOPIN) tablet 1 mg 1 mg, Oral, ONCE, 1 dose, On Thu09/07/13 at 0915, Routine Given 09/07/2013 9:32 AM EDT 1 mg diphenhydrAMINE (BENADRYL) capsule 25 mg 25 mg, Oral, ONCE, 1 dose, On Thu09/07/13 at 0900, Cath (Day of Procedure), Routine Given 09/07/2013 9:50 AM EDT 25 mg fentaNYL 50mcg/mL injection ONCE PRN, Starting on Thu09/07/13 at 1017, Until Thu09/07/13 at 1037, Pain, Intra-Operative (Intra-Procedure), Routine Given 09/07/2013 10:17 AM EDT 25 mcg iohexol (OMNIPAQUE) 350 mg iodine/mL injection ONCE PRN, Starting on Thu09/07/13 at 1037, Until Thu09/07/13 at 1037, Per Protocol, Cath (Intra-Procedure), Routine Given 09/07/2013 10:37 AM EDT 50 mLs lidocaine (XYLOCAINE) 10 mg/mL (1 %) injection ONCE PRN, Starting on Thu09/07/13 at 1018, Until Thu09/07/13 at 1037, Cath (Intra-Procedure), Routine Given 09/07/2013 10:18 AM EDT 30 mg midazolam (VERSED) injection ONCE PRN, Starting on Thu09/07/13 at 1017, Until Thu09/07/13 at 1037, Sleep, Cath (Intra-Procedure), Routine Given 09/07/2013 10:17 AM EDT 1 mg sodium chloride 0.9% infusion 200 mL/hr, Intravenous, CONTINUOUS, Starting on Thu09/07/13 at 0900, Until Thu09/07/13 at 1837, Cath (Day of Procedure) New Bag 09/07/2013 9:20 AM EDT 200 mL/hr 200 mL/hr sodium chloride 0.9% infusion 100 mL/hr, Intravenous, CONTINUOUS, Starting on Thu09/07/13 at 1145, Until Thu09/07/13 at 1837 New Bag 09/07/2013 11:27 AM EDT 100 mL/hr 100 mL/hr documented in this encounter Active and Recently Administered Medications Times are shown in EDT. Scheduled Medication Order 09/05/2013 09/06/2013 09/07/2013 clonAZEpam (KLONOPIN) tablet 1 mg (COMPLETED) 1 mg, Oral, ONCE, 1 dose, On Thu09/07/13 at 0915, Routine 0932 (Given - Provid er: Holly Carrion RN) diphenhydrAMINE (BENADRYL) capsule 25 mg (COMPLETED) 25 mg, Oral, ONCE, 1 dose, On Thu09/07/13 at 0900, Cath (Day of Procedure), Routine 0950 (Given - Provid er: Holly Carrion RN) Continuous Medication Order 09/05/2013 09/06/2013 09/07/2013 sodium chloride 0.9% infusion (CANCELED) 200 mL/hr, Intravenous, CONTINUOUS, Starting on Thu09/07/13 at 0900, Until Thu09/07/13 at 1837, Cath (Day of Procedure) 0920 (New Bag - Prov ider: Holly Carrion RN) sodium chloride 0.9% infusion (CANCELED) 100 mL/hr, Intravenous, CONTINUOUS, Starting on Thu09/07/13 at 1145, Until Thu09/07/13 at 1837 1127 (New Bag - Prov ider: Iza Pacheco RN) PRN Medication Order 09/05/2013 09/06/2013 09/07/2013 fentaNYL 50mcg/mL injection (CANCELED) ONCE PRN, Starting on Thu09/07/13 at 1017, Until Thu09/07/13 at 1037, Pain, Intra-Operative (Intra-Procedure), Routine 1017 (Given - Provid er: Leena Aviles RN) iohexol (OMNIPAQUE) 350 mg iodine/mL injection (CANCELED) ONCE PRN, Starting on Thu09/07/13 at 1037, Until Thu09/07/13 at 1037, Per Protocol, Cath (Intra-Procedure), Routine 1037 (Given - Provid er: Suhas Tavares MD) lidocaine (XYLOCAINE) 10 mg/mL (1 %) injection (CANCELED) ONCE PRN, Starting on Thu09/07/13 at 1018, Until Thu09/07/13 at 1037, Cath (Intra-Procedure), Routine 1018 (Given - Provid er: Suhas Tavares MD) midazolam (VERSED) injection (CANCELED) ONCE PRN, Starting on Thu09/07/13 at 1017, Until Thu09/07/13 at 1037, Sleep, Cath (Intra-Procedure), Routine 1017 (Given - Provid er: Leena Aviles RN) documented in this encounter Care Teams Core Filer Relationship Specialty Start Date End Date Edie Ellis MD Tsering SCHULTZ [address] [place] [id number] PCP - General 10/15/10 documented as of this encounter
--- OUTSIDE RECORDS SUMMARY | 2024-06-03 00:26 | XMS_ITS | Encounter Summary ---
Author Organization [facility] Address [address] [place] [address] Care Team Providers Care Principal Systems Architect Name Role Phone Edie Ellis MD Primary Care Provider [phone] Encounter Details Date Type Department Care Team ([facility] st Contact Info) Description 03/22/2023 Lab Requisition [facility] Pathology & Laboratory Medicine - [facility] [address], [place] [address] Outr Resulting Lab, Provider Social History Tobacco [...] Procedure Name Priority Date/Time Associated Diagnosis Comments CHLAMYDIA/N. GONORRHOEAE AMPLIFIED NUCLEIC ACID Routine 03/21/2023 12:27 EDT documented in this encounter Results * CHLAMYDIA/N. GONORRHOEAE AMPLIFIED RNA (03/21/2023 12:27 EDT) Neisseria gonorrhoeae Result Negative Negative 03/23/2023 12:55 EDT [facility] Chlamydia trachomatis Result Negative Negative 03/23/2023 12:55 EDT [facility] Swab ENTIRE VAGINA / Unknown 03/21/2023 12:27 EDT 03/22/2023 17:27 EDT Provider Outr Resulting Lab MICROBIOLOGY - GENERAL ORDERABLES [facility] [address] [place] [address] documented in this encounter Visit Diagnoses Not on filedocumented in this encounter Care Teams Principal Systems Architect Relationship Specialty Start Date End Date Edie Ellis MD [address] [place] [phone] PCP - General 03/21/19 documented as of this encounter
--- OUTSIDE RECORDS SUMMARY | 2024-06-03 00:26 | XMS_ITS | Encounter Summary ---
Author Organization [facility] Address [address] [place] [address] Care Team Providers Care Salesperson Art Objects Name Role Phone Edie Ellis MD Primary Care Provider [phone] Encounter Details Date Type Department Care Team ([facility] st Contact Info) Description 07/09/2022 Lab Requisition [facility] Pathology & Laboratory Medicine - [facility] [address] [place], [place] [address] Outr Resulting Lab, Provider Social History Tobacco [...] Procedure Name Priority Date/Time Associated Diagnosis Comments URINE [id number] NE RATIO (ACR) Routine 07/09/2022 8:55 EDT documented in this encounter Results * URINE [id number] RATIO (ACR) (07/09/2022 8:55 EDT) Albumin, Urine <0.6 See Note mg/dL 07/09/2022 22:49 EDT [facility] Comment: NOTE: Reference range not established Creatinine, Urine 105.0 See Note mg/dL 07/09/2022 22:49 EDT [facility] Comment: NOTE: Reference range not established Lab Urine Albumin to Creatinine Ratio 07/09/2022 22:49 EDT [facility] Comment: Unable to calculate due to albumin result <0.6. Urine Albumin/Creatinine Ratio: Normal: <30 ug/mg Creatinine Moderately increased albuminuria: 30-300 ug/mg Creatinine Alisia increased albuminuria: >300 ug/mg Creatinine Urine URINE SPECIMEN COLLECTION, CLEAN CATCH / Unknown 07/09/2022 8:55 EDT 07/09/2022 21:18 EDT Provider Outr Resulting Lab CHEMISTRY & BLOOD GAS ORDERABLES [facility] [address] [place] [address] documented in this encounter Visit Diagnoses Not on filedocumented in this encounter Care Teams Salesperson Art Objects Relationship Specialty Start Date End Date Edie Ellis MD [address] [place] [phone] PCP - General 03/21/19 documented as of this encounter
--- OUTSIDE RECORDS SUMMARY | 2024-06-03 00:26 | XMS_ITS | Encounter Summary ---
Author Organization Formerly [facility] Address [facility] [place] [address] Care Team Providers Care Volleyball Commentator Name Role Phone Edie Ellis MD Primary Care Provider [phone] Encounter Details Date Type Department Care Team (Latest Contact Info) Description 06/03/2012 9:45 AM EDT - 06/03/2012 5:26 PM EDT Hospital [place] [address] Carine Gill MD [facility] [place] [address] Discharge Disposition: Home Social History Tobacco Use [...] Sign Reading Time Taken Comments Blood Pressure 90/54 06/03/2012 4:00 PM EDT Pulse 72 06/03/2012 1:45 PM EDT Temperature 36.5 ??C (97.7 ??F) 06/03/2012 1:45 PM ED T Respiratory Rate 12 06/03/2012 3:00 PM EDT Oxygen Saturation 94% 06/03/2012 2:14 PM EDT Inhaled Oxygen Concentration - - [...] to call your physician or the hospital stiff leg operator if you have any questions, and they will be happy to assist you. [facility] Anesthesia Department [address] [place] [address] * Patient Instructions* Heaven Mariano MD - [...] until we see you in clinic. Call [phone] with any questions. documented in this encounter [...] hours as needed. 04/29/2014 Lancets Misc by [facility].(Non-Drug; Combo Route) route daily. 06/17/2021 Miscellaneous Medical Supply [facility] 1 strip by [facility].(Non-Drug; Combo Route) route daily. 06/17/2021 clonAZEpam (KLONOPIN) [...] of this encounter H&P Notes * Heaven Mariano MD - 06/03/2012 12:03 PM EDT Patient's [...] Operative Note Patient Name: Jammie Gottlieb : [id number] MR#: [id number] Case Date: 06/03/2012 Surgeon: Surgeon(s) and Role: [...] Mariano MD - 06/03/2012 12:00 AM EDT [facility] Operative Note Patient Name: Jammie Gottlieb : [id number] MR#: [id number] Case Date: 06/03/2012 Surgeon: Surgeon(s) and Role: [...] AM EDT Hospital Encounter [place] [address] Arrived Pending Results Name Type Priority Associated [...] MAR Action Action Date Dose Rate Site vancomycin 1 g in sodium chloride [...] 166.7 mL/hr, ONCE, 1 dose, On Bell 12 at 1030, Give over 60-90 minutes. Do not exceed 1 gram/hour. Vancomycin should be administered within 2 hours prior to incision. Re-dose after 8 hours., Day of Surgery (Day of Procedure), Routine 1030 (Due)1150 (Give n - Provider: Leticia Rodriguez RN - Comment: started by Richie Kaiser CRNA) PRN Medication Order 06/01/2012 06/02/2012 06/03/2012 bacitracin injection (CANCELED) ONCE PRN, Starting on Bell 7//12 at 1238, Until Bell 712 at 2148, Intra-Operative (Intra-Procedure), Routine 1238 (Given - Provid er: Carine Gill MD) lidocaine-epiNEPHrine 1 %-1:200,000 injection (CANCELED) ONCE PRN, Starting on Bell 712 at 1238, Until Bell 712 at 2148, Intra-Operative (Intra-Procedure), Routine 1238 (Given - Provid er: Carine Gill MD) documented in this encounter Care Teams Volleyball Commentator Relationship Specialty Start Date End Date Edie Ellis MD [address] [place] [address] PCP - General 10/15/10 documented as of this encounter
--- OUTSIDE RECORDS SUMMARY | 2024-06-03 00:26 | XMS_ITS | Encounter Summary ---
Author Organization [facility] [place] [address] Care Team Providers Care Associate Professor Of Biology Name Role Phone Edie Ellis MD Primary Care Provider [phone] Reason for Visit * Reason Comments Backache Left Leg Pain Encounter Details Date Type Department Care Team (Late st Contact Info) Description 06/04/2012 3:15 PM EDT [place] [address] [facility] [place] [address] Lumbar radiculopathy (Primary Dx) Discharge Disposition: Home Social History Tobacco Use [...] Sign Reading Time Taken Comments Blood Pressure 146/94 06/04/2012 3:46 PM EDT Pulse 82 06/04/2012 3:46 PM EDT Temperature - - Respiratory Rate - - Oxygen Saturation 100% 06/04/2012 3:46 PM EDT Inhaled Oxygen Concentration - - Weight - - Height - - Body Mass Index - - documented in this encounter Progress Notes * Andreea Whyte MD - 06/05/2012 8:05 PM EDT I was the attending physician supervising the resident in the above care. For the purposes of billing, the resident provided the care. ANDREEA WHYTE MD * Hemant Rivera MD - 06/04/2012 4:46 PM EDT Pt seen today after SCS trial yesterday. She developed foot pain in the PACU yesterday and had the lead pulled--see that note. Today she is having less pain in her foot. It still feels like a slight tinglinig pain. She is having lots of pain from her back needle sticks and didn't sleep last night. She received a rx for 20 dilaudid pills but has not filled this yet because she did not realize she could take these above her pre-procedure pain med routine. She appears fatigued, but is speaking clearly and coherently. Needle stick locations on back look clear and well healing, I changed the bandaids per her request. I let her know that she can fill her rx we provided her and take this in addition to her nml dilaudid rx. She can resume her ibuprofen. If her foot pain does not continue to improve she can come backfor re-evaluation. She will consider making another appt with Dr. Gill for further discussion . I spent 25min of this 30 min appt discussing the link between pain and emotions, stress, mental health, and physical health, as well as the treatment for chronic pain with medications, CBT, and exercise. documented in this encounter Plan of Treatment Upcoming Encounters Date Type Department Care Team (Late st Contact Info) Description 07/09/2024 10:00 AM EDT Hospital Encounter [place] [address] Arrived documented as of this encounter Visit Diagnoses Diagnosis Lumbar radiculopathy- Primary Thoracic or lumbosacral neuritis or radiculitis, unspecified documented in this encounter Care Teams Associate Professor Of Biology Relationship Specialty Start Date End Date Edie Ellis MD [address] [place] [address] PCP - General 10/15/10 documented as of this encounter
--- OUTSIDE RECORDS SUMMARY | 2024-06-03 00:26 | XMS_ITS | Encounter Summary ---
Author Organization [facility] Address [address] [place] [address] Care Team Providers Care Supervisor Rubber Covering Name Role Phone Edie Ellis MD Primary Care Provider [phone] Encounter Details Date Type Department Care Team (Late st Contact Info) Description 05/18/2022 Lab Requisition [facility] Pathology & Laboratory Medicine - [facility] [address] [place] [address] Outr Resulting Lab, Provider Social History Tobacco [...] filedocumented in this encounter Care Teams Supervisor Rubber Covering Relationship Specialty Start Date End Date Edie Ellis MD [address] [place] [phone] PCP - General 03/21/19 documented as of this encounter
--- OUTSIDE RECORDS SUMMARY | 2024-06-03 00:26 | XMS_ITS | Encounter Summary ---
Author Organization [facility] Address [address] [place] [address] Care Team Providers Care Cdl Flatbed Truck Driver Name Role Phone Edie Ellis MD Primary Care Provider [phone] Encounter Details Date Type Department Care Team (Late st Contact Info) Description 05/12/2022 Lab Requisition [facility] Pathology & Laboratory Medicine - [facility] [address] [place] [address] Ioana Khan MD [address] [place] [address],[place] [address] Encounter for other general examination Social History Tobacco Use Types Packs/Day Years [...] Procedure Name Priority Date/Time Associated Diagnosis Comments SURGICAL PATHOLOGY Today 05/09/2022 12 :47 EDT Encounter for other general examination documented in this encounter Results * SURGICAL PATHOLOGY (05/09/2022 12:47 EDT) Note to Patient The following pathology results have been interpreted by your pathologist and may be available to you before your health provider has had the opportunity to review them. Please allow time for your provider to receive these results and explore management options, if applicable. 05/15/2022 8:54 EDT [facility] Final Diagnosis A. URINARY BLADDER, POSTERIOR WALL, BIOPSY: - Urothelial tissue with sub-epithelial capillary congestion and surface reactive epithelial changes. See comment. - Muscularis propria is present. 05/15/2022 8:54 [facility] Diagnosis Comment The biopsies consists of urothelial tissue with sub-epithelial capillary congestion. The surface urothelium is partially denuded, however, where intact shows mild reactive changes. There is no evidence of carcinoma or high grade dysplasia in the biopsy material. Logging Engineer slides of this case were reviewed at the intradepartmental consultation conference. Deeper sections have been examined of block A1 and A2. 05/15/2022 8:54 [facility] Attestation There was significant resident/fellow involvement in the diagnostic evaluation of this case. By the signature below, the attending physician certifies that they have personally conducted a gross and/or microscopic examination of the described specimens and rendered or confirmed the above diagnosis. 05/15/2022 8:54 [facility] at 0854 Clinical History Erythematous patch posterior bladder wall, smoker 05/15/2022 8:54 [facility] Gross Description A. Received in formalin labelled with proper patient identification (initials B, J) and A. Posterior bladder wall are two johnson focally brown and purple-quinonez focally brown rubbery tissues (0.5 x 0.3 x 0.3 cm and 0.4 x 0.3 x 0.3 cm). The larger tissue is bisected and entirely submitted in A1 and the smaller tissue is bisected and entirely submitted in A2. CAESAR OSEI 05/12/2022 13:53 05/15/2022 8:54 [facility] Resident/Fell ow: Andressa Orlando DO 05/15/2022 8:54 T [facility] Performing Lab [facility] 05/15/2022 8:54 [facility] Scanned Images 05/15/2022 8:54 [facility] Tissue URINARY BLADDER BIOPSY SPECIMEN / Unknown 05/09/2022 12:47 EDT 05/12/2022 8:16 EDT Ioana Khan MD PATHOLOGY ORDERABLES [facility] [address] [place] [address] documented in this encounter Visit Diagnoses Diagnosis Encounter for other general examination documented in this encounter Care Teams Cdl Flatbed Truck Driver Relationship Specialty Start Date End Date Edie Ellis MD [address] [place] [phone] PCP - General 03/21/19 documented as of this encounter
--- OUTSIDE RECORDS SUMMARY | 2024-06-03 00:26 | XMS_ITS | Encounter Summary ---
Author Organization [facility] Address [facility] [place] [address] Care Team Providers Care Search Advertising Strategist Name Role Phone Edie Ellis MD Primary Care Provider [phone] Encounter Details Date Type Department Care Team (Late st Contact Info) Description 05/19/2011 9:30 AM EDT - 05/19/2011 9:59 AM EDT Hospital Encounter XRay at [address] [place] [address] Social History Tobacco Use Types Packs/Day Years [...] Sig Dispensed Refills Start Date End Date albuterol (PROVENTIL HFA;VENTOLIN HFA) 90 mcg/Actuation inhaler Inhale 2 puffs into the lungs every 4 hours as needed. Use with spacer omeprazole (PRILOSEC) 20 mg capsule Take 20 mg by mouth daily. cyclobenzaprine (FLEXERIL) 10 mg tablet Take 10 mg by mouth 3 times daily as needed. 04/29/2014 diaZEPam (VALIUM) 5 mg tablet Take 5 mg by mouth 2 times daily as needed. 03/26/2011 12/08/2011 HYDROmorphone (DILAUDID) 2 mg tablet Take 2 mg by mouth 2 times daily as needed. 03/26/2011 03/30/2014 gabapentin (NEURONTIN) 300 mg capsule Take 300 mg by mouth 3 times daily. 03/30/2014 ibuprofen (ADVIL;MOTRIN) 600 mg tablet 600 MG = 1 Tablet(s), PO, Q6H 03/05/2010 06/17/2021 PARoxetine (PAXIL) 20 mg tablet 20 MG = 1 Tablet(s), PO, Once daily 03/05/2010 12/08/2011 documented as of this encounter Plan of Treatment Upcoming Encounters Date Type Department Care Team (Late st Contact Info) Description 07/09/2024 10:00 AM EDT Hospital Encounter [place] [phone] Arrived documented as of this encounter Visit Diagnoses Not on filedocumented in this encounter Care Teams Search Advertising Strategist Relationship Specialty Start Date End Date Edie Ellis MD [facility] [address] [place] [address] PCP - General 10/15/10 documented as of this encounter
--- OUTSIDE RECORDS SUMMARY | 2024-06-03 00:26 | XMS_ITS | Encounter Summary ---
Author Organization [facility] Address [address] [place] [address] Care Team Providers Care Assistant Business Manager Name Role Phone Edie Ellis MD Primary Care Provider [phone] Encounter Details Date Type Department Care Team ([facility] st Contact Info) Description 01/21/2023 Lab Requisition [facility] Pathology & Laboratory Medicine - [facility] [address] [place], [place] [address] Outr Resulting Lab, Provider Social History Tobacco [...] Procedure Name Priority Date/Time Associated Diagnosis Comments LYME AB Routine 01/21/2023 10:44 EST documented in this encounter Results * LYME AB (01/21/2023 10:44 EST) Lyme Ab Negative Negative 01/22/2023 10:50 EST [facility] Blood VENOUS BLOOD / Unknown 01/21/2023 10:44 EST 01/21/2023 22:08 EST Provider Outr Resulting Lab IMMUNOLOGY A ND SEROLOGY ORDERABLES [facility] [address] [place] [address] documented in this encounter Visit Diagnoses Not on filedocumented in this encounter Care Teams Assistant Business Manager Relationship Specialty Start Date End Date Edie Ellis MD [address] [place] [phone] PCP - General 03/21/19 documented as of this encounter
--- OUTSIDE RECORDS SUMMARY | 2024-06-03 00:26 | XMS_ITS | Encounter Summary ---
Author Organization Formerly [facility] Address [facility] [place] [address] Care Team Providers Care Manufacturing Area Manager Name Role Phone Edie Ellis MD Primary Care Provider [phone] Encounter Details Date Type Department Care Team (Latest Contact Info) Description 03/28/2011 2:38 PM EDT - 03/28/2011 11:59 PM EDT Hospital [place] [address] CLINIC, Kelby Bravo MD [facility] [place] [address] Lumbar radiculopathy Discharge Disposition: Home Social History Tobacco Use [...] - Inhaled Oxygen Concentration - - Weight 106.6 kg (235 lb) 03/28/2011 3:00 PM EDT Height - - Body Mass Index 39.11 03/28/2011 10:55 AM EDT documented in this encounter Medications at Time [...] 03/05/2010 12/08/2011 documented as of this encounter Miscellaneous Notes * Miscellaneous - Provider, Scanning - 04/17/2011 2:34 PM EDT documented in this encounter Plan of Treatment Upcoming Encounters Date Type Department Care Team (Late st Contact Info) Description 07/09/2024 10:00 AM EDT Hospital Encounter Non-[place] [phone] Arrived documented as of this encounter Procedures Procedure Name Priority Date/Time Associated Diagnosis Comments MRI LUMBAR SPINE WITH/WO CONTRAST Routine 03/28/2011 3:50 PM EDT Thoracic or lumbosacral neuritis or radiculitis, unspecified documented in this encounter Results * MRI LUMBAR SPINE WITH/WO CONTRAST (03/28/2011 3:50 PM EDT) Anatomical Region Laterality Modality L-spine Magnetic Resonan ce 03/28/2011 3:50 PM EDT Narrative 04/02/2011 10:31 AM EDT LUMBAR MRI: HISTORY: ?? Post L5 laminotomy with lumbar radiculopathy. ??Evaluate for change. TECHNIQUE: ??Examination is done before and after intravenous administration of 20 mL of Magnevist. ?? COMPARISON: ??The study his compared to that of 02/23/08. ?? FINDINGS: ??There is still narrowing of the medial left L5 foramen. ??Tissue enhancement is less conspicuous now after contrast than it had been on the earlier study. ??Some further height loss of the L5-S1 disc has occurred, along with marginal osteophyte production and a fairly broad ridge of disc osteophyte remains visible at that level. ??While narrowed moderately, the right L5-S1 foramen is less narrowed than that on the left. ??No major central canal narrowing can be seen at any level. ??Marrow and prevertebral soft tissues are generally normal. OPINION: Persistence of narrowing of particularly the left L5-S1 foramen. ??Lesser narrowing is seen on the right at that level. ??Relative decrease in enhancing tissue seen when compared to the prior study. Procedure Note Chito Gaona MD - 04/02/2011 LUMBAR MRI: HISTORY: Post L5 laminotomy with lumbar radiculopathy. Evaluate forchange. TECHNIQUE: Examination is done before and after intravenousadministration of 20 mL of Magnevist. COMPARISON: The study his compared to that of 02/23/08. FINDINGS: There is still narrowing of the medial left L5 foramen. Tissue enhancement is less conspicuous now after contrast than it had been on the earlier study. Some further height loss of the L5-S1 disc has occurred,along with marginal osteophyte production and a fairly broad ridge of discosteophyte remains visible at that level. While narrowed moderately, the right L5-S1 foramen is less narrowed than that on the left. No major central canal narrowing can be seen at any level. Marrow and prevertebral soft tissuesare generally normal. OPINION: Persistence of narrowing of particularly the left L5-S1 foramen. Lesser narrowing is seen on the right at that level. Relative decrease inenhancing tissue seen when compared to the prior study. Kelby Gill MD [facility] ORDERABLE S documented in this encounter Visit Diagnoses Diagnosis Lumbar radiculopathy Thoracic or lumbosacral neuritis or radiculitis, unspecified documented in this encounter Administered Medications Inactive Administered Medications - up to 3 most recent administrations Medication Order MAR Action Action Date Dose Rate Site gadopentetate dimeglumine (MAGNEVIST) 10 mmol/20 mL (469.01 mg/mL) injection 21.32 mL 21.32 mL (0.2 mL/kg/dose ? 106.6 kg), Intravenous, ONCE PRN, 1 dose, Starting on Thu03/28/11 at 1500, Until Thu03/28/11 at 1535, Per Protocol, Routine Given 03/28/2011 3:35 PM EDT 20 mLs Right Arm documented in this encounter Care Teams Manufacturing Area Manager Relationship Specialty Start Date End Date Edie Ellis MD [address] [place] [address] PCP - General 10/15/10 documented as of this encounter
--- OUTSIDE RECORDS SUMMARY | 2024-06-03 00:26 | XMS_ITS | Encounter Summary ---
Author Organization [facility] [place] [address] Care Team Providers Care Net Wpf Developer Name Role Phone Edie Ellis MD Primary Care Provider [phone] Encounter Details Date Type Department Care Team (Late st Contact Info) Description 05/19/2011 Orders [place] [phone] Kelby Gill MD [facility] [place] [address] Social History Tobacco Use Types Packs/Day Years [...] AM EDT Hospital Encounter Non-Invasive [place] [phone] Arrived documented as of this encounter Procedures Procedure Name Priority Date/Time Associated Diagnosis Comments FILM LIBRARY STORAGE ONLY PAIN CLINIC C ARM Routine 05/19/2011 5:52 PM EDT documented in this encounter Results * FILM LIBRARY-STORAGE ONLY PAIN CLINIC C-ARM (05/19/2011 5:52 PM EDT) 05/19/2011 5:52 PM EDT Narrative RAD - 03/28/2014 7:50 PM EDT This is a non-reportable exam. Procedure Note [place] - 03/28/2014 This is a non-reportable exam. Kelby Gill MD [facility] FILM LIBRARY ORDERABLES [facility] [address] [facility] [place] [address] documented in this encounter Visit Diagnoses Not on filedocumented in this encounter Care Teams Net Wpf Developer Relationship Specialty Start Date End Date Edie Ellis MD [address] [place] [address] PCP - General 10/15/10 documented as of this encounter
--- OUTSIDE RECORDS SUMMARY | 2024-06-03 00:26 | XMS_ITS | Encounter Summary ---
Author Organization [facility] [place] [address] Care Team Providers Care Material Control Manager Name Role Phone Edie Ellis MD Primary Care Provider [phone] Encounter Details Date Type Department Care Team (Late st Contact Info) Description 12/26/2011 Abstract [place] [phone] [facility] [place] [address] Social History Tobacco Use Types Packs/Day Years [...] AM EDT Hospital Encounter Non-[place] [phone] Arrived documented as of this encounter Visit Diagnoses Not on filedocumented in this encounter Care Teams Material Control Manager Relationship Specialty Start Date End Date Edie Ellis MD [address] [place] [address] [address] [place] [address] PCP - General 10/15/10 documented as of this encounter
--- OUTSIDE RECORDS SUMMARY | 2024-06-03 00:26 | XMS_ITS | Encounter Summary ---
Author Organization [facility] Address [facility] Jenna [place] [place] [address] Care Team Providers Care Ceo & Co Founder Name Role Phone Edie Ellis MD Primary Care Provider [phone] Encounter Details Date Type Department Care Team (Late st Contact Info) Description 06/03/2012 11:59 AM EDT Anesthesia [place] [address] Chika Suárez MD [facility] [place] [address] Cra Kaiser, UPTWIST SPINNER [address] [place] [address] Anesthesia Record Procedure Summary Procedure Name Responsible Anesthesiologist Anesthesia Start Time Anesthesia Stop Time PERC IMPLANTATION NEUROSTIMULATOR ELECTRODE ARRAY, EPIDURAL (WRVU 7.15) (Back) Chika Suárez MD 06/03/12 1159 06/03/12 1356 Events Date Time Event Comment 06/03/2012 1159 Start 1356 Stop 06/21/2012 1515 Meds * Agents No agents on file. * Blood No blood administrations on file. Lines, Drains, and Airways Type Details Placement Removal Incision 06/03/12; (back); 07/21/22 (LDA cleanup utility RA#[id number]); 1715 (LDA cleanup utility RA#[id number]) 06/03/12 0000 by Tahmina Kent RN 07/21/22 1715 by Andrew Orozco (RETIRED) Peripheral IV Line - Single Lumen 06/03/12; 1012; 06/03/12; 1729 06/03/12 1012 by Paty Lawrence RN 06/03/12 1729 by Prudencio Beatty RN documented in this encounter Social History [...] OR Notes * Anesthesia Postprocedure Evaluation - Car Kaiser CRNA - 06/03/2012 3:01 PM EDT Patient: Jammie Gottlieb Procedure(s) Performed: Procedure(s): PERC IMPLANTATION NEUROSTIMULATOR ELECTRODE ARRAY, EPIDURAL Patient location: PACU Post-op pain: Adequate analgesia Post-op nausea: no nausea or vomiting Last Vitals: Filed Vitals: 06/03/12 1345 BP: 95/54 Pulse: 72 Temp: 36.5 ??C (97.7 ??F) Resp: 16 Post-op cardiovascular and respiratory status: is stable Level of consciousness: alert , oriented and lethargic Complications: no apparent complications and tolerated the procedure well Fluid Status: normal Pt easily roused, somnolent. VSS. Complaining of right toe pain when awoken. Will defer to primary service for further workup. Pt reports satisfaction with anesthetic care. * Anesthesia Preprocedure Evaluation - Chika Suárez MD - 06/03/2012 8:06 AM EDT Anesthesia Evaluation Patient summary reviewed Hx of anesthetic complications (possible awareness during previous surgery at outside hospital) Airway Dental Pulmonary Cardiovascular (+) hypertension, Neuro/Psych (+) neuromuscular disease, headaches, GI/Hepatic/Renal Endo/Other (+) Type II DM, Comments: obesity Abdominal (+) obesity, Other findings: Patient Active Problem List: Lumbar radiculopathy (724.4F) No results found for this or any previous visit (from the past 72 hour(s)). Anesthesia Plan ASA 3 MAC with intravenous induction Plan discussed with medical student and UPTWIST SPINNER. documented in this encounter Miscellaneous Notes * Addendum Note - Chika Suárez MD - 06/21/2012 3:15 PM EDT Addendum created 06/21/121514 by Chika Suárez MD Modules edited:Anesthesia Review and Sign Navigator Section, Flowsheet VN, Inpatient Notes Flowsheet [id number] Procedural Verification * Addendum Note - Chika Suárez MD - 06/21/2012 3:15 PM EDT Addendum created 06/21/121514 by Chika Suárez MD Modules edited:Anesthesia Review and Sign Navigator Section, Flowsheet VN, Inpatient Notes Flowsheet [id number] Procedural Verification documented in this encounter Plan of Treatment Upcoming Encounters Date Type Department Care Team (Late st Contact Info) Description 07/09/2024 10:00 AM EDT Hospital Encounter [place] [address] Arrived documented as of this encounter Visit Diagnoses Not on filedocumented in this encounter Care Teams Ceo & Co Founder Relationship Specialty Start Date End Date Edie Ellis MD [address] [place] [address] PCP - General 10/15/10 documented as of this encounter
--- OUTSIDE RECORDS SUMMARY | 2024-06-03 00:26 | XMS_ITS | Encounter Summary ---
[place] [address] Care Team Providers Care Laboratory Director Name Role Phone Edie Ellis MD Primary Care Provider [phone] Reason for Visit * Reason Onset Date Comments Back Pain 05/29/2011 s/p LESI 05/19/11 Encounter Details Date Type Department Care Team (Late st Contact Info) Description 05/29/2011 [place] [address] Tesha Wong RN Back Pain (s/p LESI 05/19/11) Social History Tobacco Use Types Packs/Day Years [...] encounter Miscellaneous Notes * Telephone Encounter - Tesha Wong RN - 05/29/2011 12:08 PM EDT [facility] Post-Procedure Phone Note Patient: Jammie Gottlieb [id number] Post-procedure phone call from patient to report her response to the lumbar epidural steroid injection procedure performed on 05/19/11 in the Pain Management Center by Kelby Gill MD and Dr. Efren Figueroa. Patient reports that she has experienced about a 75% improvement in her left foot since the shot, but starting the next day she experienced an increase in her blood sugar, a decrease in her blood pressure and feels tired. She has diet controlled diabetes and a history of episodes of low blood pressure. Based on the information provided above and after discussion with the patient, the following actions will be taken: She was advised to contact her PCP or the provider that manages her diabetes. She stated, I am notsure if the benefits out weigh the side effects. I have an appointment next week with my PCP. I will discuss it with her then. I reiterated to her to call the PCP before the scheduled appointment with an update and to discuss treatment plans. Patient agreed with this plan. Patient has the appropriate phone number and understands that she may contact the Pain Management Center at any time with questions or concerns. Tesha Wong RN documented in this encounter Plan of Treatment Upcoming Encounters Date Type Department Care Team (Late st Contact Info) Description 07/09/2024 10:00 AM EDT Hospital Encounter Non-[place] [address] Arrived documented as of this encounter Visit Diagnoses Not on filedocumented in this encounter Care Teams Laboratory Director Relationship Specialty Start Date End Date Edie Ellis MD [address] [place] [address] PCP - General 10/15/10 documented as of this encounter
--- OUTSIDE RECORDS SUMMARY | 2024-06-03 00:26 | XMS_ITS | Encounter Summary ---
Author Organization [facility] Address [address] [place] [address] Care Team Providers Care Enterprise Manager Name Role Phone Edie Ellis MD Primary Care Provider [phone] Encounter Details Date Type Department Care Team (Late st Contact Info) Description 11/27/2021 Lab Requisition [facility] Pathology & Laboratory Medicine - [facility] [address] [place] [address] Outr Resulting Lab, Provider Social History Tobacco [...] Procedure Name Priority Date/Time Associated Diagnosis Comments CCP ANTIBODIES Routine 11/27/2021 10:45 EST documented in this encounter Results * CCP ANTIBODIES (11/27/2021 10:45 EST) CCP Antibodies <2.5 <5.0 U/mL 11/28/2021 9:04 EST [facility] Blood VENOUS BLOOD / Unknown 11/27/2021 10:45 EST 11/27/2021 21:22 EST Provider Outr Resulting Lab IMMUNOLOGY A ND SEROLOGY ORDERABLES [facility] [address] [place] [address] documented in this encounter Visit Diagnoses Not on filedocumented in this encounter Care Teams Enterprise Manager Relationship Specialty Start Date End Date Edei Ellis MD [address] [place] [id number] PCP - General 03/21/19 documented as of this encounter
--- OUTSIDE RECORDS SUMMARY | 2024-06-03 00:26 | XMS_ITS | Encounter Summary ---
[place] [address] Care Team Providers Care Law Clerk Name Role Phone Edie Ellis MD Primary Care Provider [phone] Reason for Visit * Reason Comments Pre Procedure Call Encounter Details Date Type Department Care Team (Late st Contact Info) Description 05/31/2012 Telephone [place] [phone] Madelyn Campa, RN Pre Procedure Call Social History Tobacco Use Types Packs/Day Years Used Date Smoking Tobacco: Former Cigarettes Smokeless Tobacco: Never Alcohol Use Standard Drinks/Week [...] Telephone Encounter - Madelyn Campa, RN - 05/31/2012 10:16 AM EDT Pain [facility] Pre-Operative Information Phone Note Patient: Jammie Gottlieb [id number] Call placed to Jammie Gottlieb with information and instructions prior to her SCS trial surgery with Kelby Gill MD scheduled on 06/03/12. This conversation included confirmation of procedure, date, arrival of preoperative letter, cleansing solution, completion of preoperative requirements, review of general postoperative instructions, confirmation of postoperative appointment, and instructions to call prior to surgery date if she should become ill, develop an infection, or be placed on antibiotics for any reason. She was instructed to stop ibuprofen. All questions were answered to Jammie Gottlieb satisfaction and she voiced understanding. Jammie Gottlieb knows how to contact the Pain Management Center with any further questions or concerns. Madelyn Campa CHEMISTRY INSTRUCTOR documented in this encounter Plan of Treatment Upcoming Encounters Date Type Department Care Team (Late st Contact Info) Description 07/09/2024 10:00 AM EDT Hospital Encounter Non-Invasive [place] [address] Arrived documented as of this encounter Visit Diagnoses Not on filedocumented in this encounter Care Teams Law Clerk Relationship Specialty Start Date End Date Edie Ellis MD [address] [place] [address] PCP - General 10/15/10 documented as of this encounter
--- OUTSIDE RECORDS SUMMARY | 2024-06-03 00:26 | XMS_ITS | Encounter Summary ---
Author Organization [facility] Address [facility] [place] [address] Care Team Providers Care Laminator Printed Circuit Boards Name Role Phone Edie Ellis MD Primary Care Provider [phone] Reason for Visit * Reason Comments Backache Pain In Limb Encounter Details Date Type Department Care Team (Late st Contact Info) Description 03/28/2011 10:45 AM EDT Office [place] [address] Deysi Sterling MD [facility] [place] [address] Lumbar radiculopathy (Primary Dx) Discharge Disposition: Home [...] Sign Reading Time Taken Comments Blood Pressure 128/87 03/28/2011 10:55 AM EDT Pulse 96 03/28/2011 10:55 AM EDT Temperature - - Respiratory Rate - - Oxygen Saturation 100% 03/28/2011 10:55 AM EDT Inhaled Oxygen Concentration - - Weight 106.6 kg (235 lb) 03/28/2011 10:55 AM EDT Height 165.1 cm (5' 5) 03/28/2011 10:55 AM EDT Body Mass Index 39.11 03/28/2011 10:55 AM EDT documented in this encounter Progress Notes * Kelby Gill MD - 03/28/2011 3:04 PM EDT I have seen the patient and reviewed the resident's above history and I agree with the details as written. The assessment and plan were formulated in discussion with me and I agree with them as documented. * Deysi Sterling MD - 03/28/2011 11:15 AM EDT Reason for Visit: I am seeing Ms. Gottlieb at the request of Dr. Edie Ellis to evaluate and treat her low back pain. Chief Complaint: Ms Gottlieb is a 33-year-old woman with a chief complaint of pain primarily in her left low back, radiating into her left buttock, her left leg, her left posterior and lateral calf and foot, and into her lateral toes. She has been seen in the pain clinic previously by Dr Gill in 2008 and returns to clinic with progressive pain. History of Present Illness: She has had three epidural steroid inections in the past, which helped,but after that, she got minimal help from subsequent injections. The first two helped both the backand leg pain, the second helped the leg pain only, and the third injection did not help at all. Theinjections really wreaked havoc with her diabetes, causing her sugars to be quite elevated. However, her current A1C is much improved and she has lost 60 lbs. Over the past year, she states that her pain is worsening episodically. She states that the shooting pain in her left leg can come on and cause severe pain, where she has actually fallen down twice over the past year. Neurontin does a good job managing the electric sensations but she continues to have signficant baseline pain. The pain is located in the left L4 region goes down in iwona SI joint inthe left. That is about 90% of her pain, and is described as a raw, sharp, like a hack saw in her back. It is worse with: prolonged sitting, prolonged standing. Sleeping is difficult. Improving factors include sitting on the right side. Her pain on average is a 6 or a 7 on a 0 to 10 verbal numerical scale. At its worse it is an 8 and at its least it is a 5. Medications that improve the pain include her prn dilaudid which she tries not to take. She does take the flexeril which helps her movement and she limits her use of valium. The ibuprofen can help at times. She was recently tried on morphine which helped her pain but she did not like the cognitive side effects, so stopped. The other 10% of the pain is the pain that goes down the leg and is very happy with the symptom relief with the neurontin. The discomfort is mostly in her left lateral leg and posterior thigh extending into the left leg and lateral three toes. She has numbness along this distribution as well. Has also tried: PT TENS unit She has had back pain since 2003 and had a diskectomy in 2003 which helped the pain that goes down her left leg. She has an MRI, which was done in 2007, which I personally looked at and read, and which shows substantial scarring around the left S1 nerve root. Past Medical History: Diabetes mellitus, high cholesterol. Past Surgical History: Back surgery and a . Family History: Very strongly positive for diabetes mellitus. Social History: She lives in [place], [place] with her and 3 children. She has no prior history of alcoholism or drug abuse. She does not smoke cigarettes. She states she probably could work if her work were close to home, but she prefers to stay home right now and take care of her children. When asked about her mood, she states it is sometimes good and sometimes bad, she is being seen bypsychiatrist for PTSD, anxiety and depression. Review of Systems: Constitutionally, she has lost 60 lbst. She states that she has had some difficulty hearing in her right ear and thinks she had an infection, although it is getting better now. Shedenies chest pain. She does have shortness of breath, and her doctors have been trying to rule out whether or not she has asthma, much improved since she lost weight. Can get constipated with dilaudid. All other systems reviewed and were negative. Physical Examination: On physical examination, she is an obese female, who moves around the room with great difficulty. Her sclerae are non-icteric. Her throat is clear. I am unable to appreciate anyabnormal masses in her neck. Distal pulses are palpable. Her abdomen is obese, soft, and nontender without palpable masses or pulsations. There is no edema of her lower extremities. No rashes. Musculoskeletally, she has decreased range of motion of her back in all directions. She can forward flex to 30 degrees with discomfort in her low back, extend her spine to 5 degrees with pain in her right low back, facet loading produces pain in her left buttock and left low back bilaterally. SLR is positive on the left, negative on the right. FABERs and Patricks are positive on the left for SI joint and low back pain. She has tenderness to palpation around the L5 and S1 foramina on the left, as well as some left SI joint pain. Neurologically, I am unable to elicit an ankle jerk on the left, but theright and the patellae and the biceps, triceps and brachioradialis are all 2+ and symmetrical with d istraction. Gait is antalgic favoring her left leg. She is able to toe and heel walk with assistance secondary to the pain in her back. Her affect is normal. She is smiling. Imaging: MRI OF THE LUMBOSACRAL SPINE, 02/23/08: HISTORY: Rule out acute disc herniation. Acute back pain and left S1 radiculopathy. TECHNIQUE: MRI of the lumbar spine was performed per standard protocol per postoperative patients both before and after administration of intravenous contrast. COMPARISON: Similar study of 05/10/04. FINDINGS: There has been substantial interval decrease in the extent of enhancing tissue at the site of the left L5-S1 foraminotomy. There is persistent enhancing tissue in the central anterior and left anterior epidural space. This material surrounds the left S1 nerve root . There is a small amount of nonenhancing material, most of which appears to be disc osteophyte. The nerve root is not visibly displaced. The remainder of the intervertebral discs are of normal appearance. Vertebral height and marrow signal are normal, with the exception of degenerative endplate changes about the L5-S1 disc space. The conus medullaris is of normal contour and signal characteristics terminating at the level of L1. IMPRESSION: Status post left L5-S1 foraminotomy. There is decrease in the extent of abnormal enhancing tissue in the epidural space at this site. The material that remains is largely enhancing, though a small amount of nonenhancing material consistent with disc osteophyte is present. While enhancing material surrounds the left S1 nerve root, there is no visible displacement. Assessment: Chronic low back pain, lumbar radiculopathy, neuropathic pain, agoraphobia, fear avoidance. Plan: 1. Medication: I would recommend that she increase her neurontin to a target dose of 2700mg per day. Advance as tolerated and minimal side effects. We agree with continuing her on her current regimenof narcotic medications. 2. Injections: We would recommend trying one LESI. She will get an MRI of the lumbar spine done prior to scheduling the LESI. Should the LESI not help, we can consider doing a left L4 and S1 MBB withpossible RF and and left SI joint injection. We will make every attempt to limit her steroid exposure given her history of diabetes. 3. Behavioral: The patient will be seeing her psychologist to help with coping with anxiety, PTSD and chronic pain. We agree that this would be and excellent addition to her treatment regimen. She can follow up with us 6-8 weeks following her LESI. Thank you for referring this patient to our care. DEYSI STERLING documented in this encounter Plan of Treatment Upcoming Encounters Date Type Department Care Team (Late st Contact Info) Description 07/09/2024 10:00 AM EDT Hospital Encounter Non-[place] [address] Arrived documented as of this encounter Visit Diagnoses Diagnosis Lumbar radiculopathy- Primary Thoracic or lumbosacral neuritis or radiculitis, unspecified documented in this encounter Care Teams Laminator Printed Circuit Boards Relationship Specialty Start Date End Date Edie Ellis MD [address] [place] [address] PCP - General 10/15/10 documented as of this encounter
--- OUTSIDE RECORDS SUMMARY | 2024-06-03 00:26 | XMS_ITS | Encounter Summary ---
Author Organization [facility] Address [facility] [place] [address] Care Team Providers Care Salon Assistant Name Role Phone Edie Ellis MD Primary Care Provider [phone] Encounter Details Date Type Department Care Team (Late st Contact Info) Description 09/06/2013 Orders Only Cardiology at [address] [address] Kika David PA [facility] [place] [address] Cardiomyopathy (Primary Dx) Social History Tobacco Use Types Packs/Day Years [...] AM EST documented as of this encounter Procedure Notes * Provider, Scanning - 09/07/2013 10:59 AM EDTAssociated Order(s): CARDIAC CATHETERIZATION documented in this encounter Plan of Treatment Upcoming Encounters Date Type Department Care Team (Late st Contact Info) Description 07/09/2024 10:00 AM EDT Hospital Encounter [place] [address] Arrived documented as of this encounter Procedures Procedure Name Priority Date/Time Associated Diagnosis Comments CARDIAC CATHETERIZATION Routine 09/07/20 13 10:38 AM EDT Cardiomyopathy documented in this encounter Results * Cardiac Catheterization (09/07/2013 10:38 AM EDT) Anatomical Region Laterality Modality Other Narrative 09/07/2013 12:07 PM EDT Procedure Note Provider, Scanning - 09/07/2013 10:59 AM EDT Prudencio Dean MD CARDIAC CATH ORDERAB LES documented in this encounter Visit Diagnoses Diagnosis Cardiomyopathy- Primary Other primary cardiomyopathies Cardiomyopathy Other primary cardiomyopathies documented in this encounter Care Teams Salon Assistant Relationship Specialty Start Date End Date Edie Ellis MD [address] [place] [address] PCP - General 10/15/10 documented as of this encounter
--- OUTSIDE RECORDS SUMMARY | 2024-06-03 00:26 | XMS_ITS | Referral Summary ---
Author Organization [facility] Address [address] [place] [address] Care Team Providers Care Sprinkling System Irrigator Name Role Phone Edie Ellis MD Primary Care Provider [phone] Social History Tobacco Use Types Packs/Day Years Used Date Smoking Tobacco: Never Assessed Interpersonal Safety Answer Date Record ed Physically Hurt Never 06/24/2020 Verbally Threaten Not on file 06/24/2020 Sex and Gender Information Value Date Recorded Sex Assigned at Not on file Gender Identity Not on file Sexual Orientation Not on file Plan of Treatment Not on file Care Teams Sprinkling System Irrigator Relationship Specialty Start Date End Date Edie Ellis MD [address] [place] [address] [address] [place] [address] PCP - General 03/21/19
--- OUTSIDE RECORDS SUMMARY | 2024-06-03 00:26 | XMS_ITS | Encounter Summary ---
Author Organization [facility] [place] [address] Care Team Providers Care Tube Draw Helper Name Role Phone Edie Ellis MD Primary Care Provider [phone] Encounter Details Date Type Department Care Team (Late st Contact Info) Description 03/26/2011 Abstract [place] [address] Kelby Gill MD [facility] [place] [address] Social History Tobacco Use Types Packs/Day Years [...] AM EDT Hospital Encounter Non-Invasive [place] [address] Arrived documented as of this encounter Visit Diagnoses Not on filedocumented in this encounter Care Teams Tube Draw Helper Relationship Specialty Start Date End Date Edie Ellis MD [facility] [address] [place], [place] [id number] PCP - General 10/15/10 documented as of this encounter
--- OUTSIDE RECORDS SUMMARY | 2024-06-03 00:26 | XMS_ITS | Encounter Summary ---
Author Organization [facility] [place] [address] Care Team Providers Care Mercerizing Range Feeder Name Role Phone Edie Ellis MD Primary Care Provider [phone] Reason for Visit * Reason Comments Backache Encounter Details Date Type Department Care Team (Late st Contact Info) Description 12/08/2011 10:45 AM EST Follow[place] [address] Kelby Gill MD [facility] [place] [address] Lumbar radiculopathy (Primary Dx) Discharge Disposition: Home [...] Sign Reading Time Taken Comments Blood Pressure 134/96 12/08/2011 11:32 AM EST Pulse 99 12/08/2011 11:32 AM EST Temperature - - Respiratory Rate - - Oxygen Saturation 96% 12/08/2011 11:32 AM EST Inhaled Oxygen Concentration - - Weight - - Height - - Body Mass Index - - documented in this encounter Progress Notes * Kelby Gill MD - 12/08/2011 12:31 PM EST Ms. Gottlieb presents today with a chief complaint of pain in her left lower extremity. She has a recent MRI which I personally reviewed which shows scarring of the left L5 nerve root which is consistent with her pain complaints. Her mood is reasonably good. She is seeing a therapist at home. Her activity level is severely restricted and she continues to gain unwanted and unneeded weight. She is optimally managed pharmacologically and I think from a procedural perspective her only real option is a trial and possible implantation of a spinal cord stimulating device or consideration of another surgical procedure. I have discussed both of these options with her in detail today and the plan is that I will have her visit with Dr. Jamie Dickinson for his advice regarding whether or not she has any surgical options. She has pain in both her low back and her left lower extremity, but the predominance of her pain is lateralized to the left buttock down. She is also a reasonable candidate for a trial and possible implantation of the spinal cord stimulating device and I am going to get the paperwork rolling on that as well. She is going to be obtaining a letter from her therapist advising me whether or not it is appropriate for us to proceed and if that is the case we will go ahead. I have discussed the procedure with her in detail and given her DVDs to review today. We spent 25 minutes together today 20 of which was spent with my explaining the trial and permanent implantation phases and talking about complications including paralysis, loss of control of bladder and bowel, , worse pain, infection, and bleeding. She will be seeing Dr. Dickinson and then we will go ahead with the trial of spinal cord stimulation if she is not a surgical candidate. * Kelby Gill MD - 12/08/2011 12:25 PM EST documented in this encounter Plan of Treatment Upcoming Encounters Date Type Department Care Team (Late st Contact Info) Description 07/09/2024 10:00 AM EDT Hospital Encounter Non-[place] [address] Arrived documented as of this encounter Visit Diagnoses Diagnosis Lumbar radiculopathy- Primary Thoracic or lumbosacral neuritis or radiculitis, unspecified documented in this encounter Care Teams Mercerizing Range Feeder Relationship Specialty Start Date End Date Edie Ellis MD [address] [facility] [address] [place] [address] PCP - General 10/15/10 documented as of this encounter
--- OUTSIDE RECORDS SUMMARY | 2024-06-03 00:26 | XMS_ITS | Encounter Summary ---
Author Organization [facility] [place] [address] Care Team Providers Care Operator Vacuum Name Role Phone Edie Ellis MD Primary Care Provider [phone] Encounter Details Date Type Department Care Team (Late st Contact Info) Description 01/30/2012 Abstract [place] [phone] Jamie Dickinson MD [facility] [place] [address] Social History Tobacco Use Types Packs/Day Years [...] AM EDT Hospital Encounter Non[place] [phone] Arrived documented as of this encounter Visit Diagnoses Not on filedocumented in this encounter Care Teams Operator Vacuum Relationship Specialty Start Date End Date Edie Ellis MD [address] [place] [address] [address] [place] [address] PCP - General 10/15/10 documented as of this encounter
--- OUTSIDE RECORDS SUMMARY | 2024-06-03 00:26 | XMS_ITS | Clinical Summary ---
Author Organization [facility] Address [address] [place] [address] Care Team Providers Care Distributed Generation Project Manager Name Role Phone Edie Ellis MD Primary Care Provider [phone] Social History Tobacco Use Types Packs/Day Years Used Date Smoking Tobacco: Never Assessed Interpersonal Safety Answer Date Record ed Physically Hurt Never 06/24/2020 Verbally Threaten Not on file 06/24/2020 Sex and Gender Information Value Date Recorded Sex Assigned at Not on file Gender Identity Not on file Sexual Orientation Not on file Plan of Treatment Health Maintenance Due Date Last Done Comments Hepatitis C Screen 1975 Hepatitis B Vaccine (1 of 3 - 19+ 3-dose series) 06/15 COVID-19 Vaccine ( season) 2023 Care Teams Distributed Generation Project Manager Relationship Specialty Start Date End Date Edie Ellis MD [address] [place] [phone] PCP - General 03/21/19
--- OUTSIDE RECORDS SUMMARY | 2024-06-03 00:26 | XMS_ITS | Encounter Summary ---
Author Organization [facility] Address [facility] [place] [address] Care Team Providers Care Dinkey Locomotive Engineer Name Role Phone Edie Ellis MD Primary Care Provider [phone] Reason for Visit * Reason Comments Backache Encounter Details Date Type Department Care Team (Latest Contact Info) Description 05/19/2011 9:00 AM EDT Office [place] [address] Kelby Gill MD [facility] [place] [address] Lumbar radiculopathy (Primary Dx) Discharge Disposition: Home [...] Sign Reading Time Taken Comments Blood Pressure 121/83 05/19/2011 9:55 AM EDT Pulse 107 05/19/2011 9:55 AM EDT Temperature - - Respiratory Rate 16 05/19/2011 9:55 AM EDT Oxygen Saturation 97% 05/19/2011 9:55 AM EDT Inhaled Oxygen Concentration - - Weight 106.1 kg (234 lb) 05/19/2011 9:18 AM EDT Height 162.6 cm (5' 4) 05/19/2011 9:18 AM EDT Body Mass Index 40.17 05/19/2011 9:18 AM EDT documented in this encounter Patient Instructions * Patient Instructions* Adriana Alexander LPN - 05/19/2011 9:43 AM EDT Pain Management Center Discharge Instructions: You were seen by Dr. Kelby Gill MD who performed lumbar epidural steroid injection. [x] You may resume your normal activities: tomorrow. You may shower today. DO NOT tub bathe, use whirlpools, hot tubs or pool therapy for 2 days. RemoveBand-Aid(s) later today/tomorrow. Do not drive until tomorrow. Use caution walking/climbing stairs as you may be unsteady on your feet. You may use your usual medications, including pain medications, as directed, unless otherwise instructed. You may use an ice pack as needed for the first 24 hours, on for 20 minutes then off for 20 minutes. Do not apply heat today. Attempt to empty your bladder 4-6 hours after your procedure. [x] If you have diabetes, monitor your blood sugars frequently. If your blood sugar increases and is of concern, contact your Primary Care Provider. You received the following medications: Depo-Medrol 120 mg, Lidocaine and Omnipaque (contrast dye). During regular business hours, please phone the Pain Management Center at for appointments or with any questions or if the following or other troubling symptoms develop: 1) Prolonged dizziness or weakness (more than 1 day). 2) Localized swelling, redness or drainage at the injection site(s). 3) Temperature of 101 degrees that lasts for more than 4 hours. After 5 PM or on weekends, call and ask for Pain Clinic provider on-call. If you are unable to reach the Pain Management Center and have a complication, please call your Primary Care Provider or proceed to your local emergency department. Adriana Alexander LPN Special instructions documented in this encounter Progress Notes * Kelby Gill MD - 05/19/2011 10:16 AM EDT I was the attending physician supervising the resident in the above care and I was present with theresident for the entire procedure. * Adriana Alexander LPN - 05/19/2011 9:21 AM EDT Pre-Procedure Screening Questions: 1. Status: No 2. 3. Patient states they have a commercial driver to transport after procedure? Yes 4. Patient taking antibiotics at present? No 5. NPO per Pain Management Center protocol? No 6. 7. Patient diabetic: Yes __x borderline (not treated with medications) __ managed with oral medications __ managed with injected medications 8. Patient routinely taking anticoagulants ? No Date stopped Current INR Patient Vital Signs documented in Doc Flowsheets associated with this encounter. Patient Discharge Instructions were reviewed with patient and copy provided to patient. documented in this encounter Procedure Notes * Efren Figueroa MD - 05/19/2011 10:01 AM EDTAssociated Order(s): EPIDURAL STEROID INJECTION Procedure(s): EPIDURAL STEROID INJECTION Pre-Procedure Diagnose(s): Lumbar radiculopathy STERIOID INJECTION PROCEDURE NOTE Jammie Gottlieb has been referred to the Pain Management Center for lumbar epidural steroid injection. Jammie Gottlieb was greeted by the nurse who verified patients name and . Patient was then takento the fluoroscopy suite. Jammie Gottlieb was interviewed and the medical record reviewed. There were no medical, pharmacologic, radiographic, or other structural contraindications to attempting fluoroscopically guided L4-L5 injection. Risks and expected side effects as well as potential benefits of the procedure were reviewed with Jammie Gottlieb and her voiced concerns addressed. The patient consent form was signed and witnessed. Standard time-out procedure was performed. Jammie Gottlieb was placed in the prone position on the fluoroscopy table and automated blood pressure cuff and pulse oximeter applied. The skin entry point for entering/approaching the epidural space by a left L4-L5 and marked. Following thorough Chlorhexidine preparation of the skin and draping and 1% lidocaine infiltration of the skin entry point and subcutaneous tissues, a 18 gauge Tuohy needle was placed under fluoroscopic guidance and with loss of resistance technique into the epidural space. Needle tip placement and depth were aided and confirmed by fluoroscopy. There was no paresthesia or return of blood or CSF through the needle. 1 cc's of Omnipaque 240 were injected with clear epidural spread confirmed with fluoroscopy. Depomedrol followed by 1 ml sterile normal saline was injected. There was not any unusual discomfort expressed by Jammie Gottlieb. Jammie Gottlieb's vital signs were stable throughout the procedure and were as recorded in nursing records. Intravenous drugs for sedation and analgesia were not given as ordered by me. Follow up plans and appointments were discussed with Jammie Gottlieb. Post procedure instruction was given as documented in nursing records and having met discharge criteria she was discharged from the Pain Management Center. COMMENTS: Pt will call next Thursday if not better. If she does not receive good relief we will try Left Lumbar MBB then followed by an SI joint injection . documented in this encounter Miscellaneous Notes * Miscellaneous - Ethan Kaminski - 05/22/2011 1:14 PM EDT documented in this encounter Plan of Treatment Upcoming Encounters Date Type Department Care Team (Late st Contact Info) Description 07/09/2024 10:00 AM EDT Hospital Encounter Non-Invasive [place] [address] Arrived documented as of this encounter Results * Epidural steroid injection (05/27/2011 2:02 PM EDT) Kelby Gill MD NEUROLOGY ORDERAB LES documented in this encounter Visit Diagnoses Diagnosis Lumbar radiculopathy- Primary Thoracic or lumbosacral neuritis or radiculitis, unspecified documented in this encounter Administered Medications Inactive Administered Medications - up to 3 most recent administrations Medication Order MAR Action Action Date Dose Rate Site iohexol (OMNIPAQUE) injection 1 mL 1 mL, Intravenous, ONCE PRN, 1 dose, Starting on Thu05/19/11 at 0908, Until Thu05/19/11 at 0959, Per Protocol, Routine Given 05/19/2011 9:59 AM EDT 1 mL methylPREDNISolone acetate (depo-MEDROL) injection 120 mg 120 mg, Intramuscular, ONCE, 1 dose, On Thu05/19/11 at 0930, Routine Given 05/19/2011 9:30 AM EDT 120 mg documented in this encounter Care Teams Dinkey Locomotive Engineer Relationship Specialty Start Date End Date Edie Ellis MD [facility] [address] [place] [address] PCP - General 10/15/10 documented as of this encounter
--- OUTSIDE RECORDS SUMMARY | 2024-06-03 00:26 | XMS_ITS | Encounter Summary ---
[place] [address] Care Team Providers Care Geothermal Powerplant Supervisor Name Role Phone Edie Ellis MD Primary Care Provider [phone] Reason for Visit * Reason Onset Date Comments Other 09/01/2013 PHONE CALL PRE C ATH Encounter Details Date Type Department Care Team (Late st Contact Info) Description 09/01/2013 Telephone Cardiology at [address] [phone] Rachel Arrieta Other (PHONE CALL PRE CATH) Social History Tobacco Use Types Packs/Day Years [...] encounter Miscellaneous Notes * Telephone Encounter - Rachel Arrieta - 09/01/2013 2:26 PM EDT Name: Jammie Gottlieb Referring Doctor: DUNIA SORTO Procedure Date: 09/07/2013 Diagnosis: CM Diabetic Y/N, meds: ? Coumadin present Y/N: ? IV Dye or Contrast Allergy Y/N:? Hx: En route Order status: not done Patient will be expecting phone teaching call RACHEL ARRIETA 09/01/2013 documented in this encounter Plan of Treatment Upcoming Encounters Date Type Department Care Team (Late st Contact Info) Description 07/09/2024 10:00 AM EDT Hospital Encounter [place] [address] Arrived documented as of this encounter Visit Diagnoses Not on filedocumented in this encounter Care Teams Geothermal Powerplant Supervisor Relationship Specialty Start Date End Date Edie Ellis MD [facility] [address] [facility] [address] [place] [address] PCP - General 10/15/10 documented as of this encounter
--- OUTSIDE RECORDS SUMMARY | 2024-06-03 00:26 | XMS_ITS | Encounter Summary ---
[place] [address] Care Team Providers Care Plating Tank Operator Name Role Phone Edie Ellis MD Primary Care Provider [phone] Reason for Visit * Reason Comments Back Pain ongoing pain, not re lieved by LESI Encounter Details Date Type Department Care Team (Late st Contact Info) Description 06/27/2011 Telephone [place] [phone] Tesha Wong RN Back Pain (ongoing pain, not relieved by LESI ) Social History Tobacco Use Types Packs/Day Years [...] Telephone Encounter - Tesha Wong RN - 06/27/2011 3:03 PM EDT I received a call from Jammie Gottlieb stating that she had a follow-up with her doctor and was advised to do the next recommended procedure. She had an LESI with Dr. Gill and Dr. Figueroa on 05/29/11at didn't go well. She stated that her blood sugars were out high. She felt terrible and ended up with an infection (?UTI). She requested some information before she scheduled anything. After review of her record, it was noted on Dr. Figueroa's plan was that if the LESI did not work to try left LMBB, followed by left SI joint injection. I provided her with information regarding the LMBB procedure. All her questions were answered. She was transferred to [place] to schedule left LMBB's with Dr. Gill. Anticoagulants: No. Patient knows how to contact the Pain Management Center if any further questions or concerns occur. documented in this encounter Plan of Treatment Upcoming Encounters Date Type Department Care Team (Late st Contact Info) Description 07/09/2024 10:00 AM EDT Hospital Encounter [place] [address] Arrived documented as of this encounter Visit Diagnoses Not on filedocumented in this encounter Care Teams Plating Tank Operator Relationship Specialty Start Date End Date Edie Ellis MD [address] [place] [address] PCP - General 10/15/10 documented as of this encounter
--- OUTSIDE RECORDS SUMMARY | 2024-06-03 00:26 | XMS_ITS | Encounter Summary ---
Author Organization [facility] Address [facility] [place] [address] Care Team Providers Care Pipeline Dispatcher Name Role Phone Edie Ellis MD Primary Care Provider [phone] Encounter Details Date Type Department Care Team (Latest Contact Info) Description 09/07/2013 8:10 AM EDT - 09/07/2013 3:32 PM EDT Hospital [place] [address] Suhas Tavares MD [facility] [place] [address] Cardiomyopathy; CAD (coronary artery disease) Discharge Disposition: Home Social History Tobacco Use [...] by your doctor, do not take any kyvp-bhs-[id number] medicines or herbal preparations without first discussing this with your doctor or pharmacist. There is the possibility of side effect and interactions when these are combined. Follow up Care Who to Call with Questions or Problems If there are any questions or problems that you think might be related to your cardiac cath or angioplasty, contact the culinary instructor microelectronics assembler by calling [facility] at . documented in this encounter [...] hours as needed. 04/29/2014 Lancets Misc by [facility].(Non-Drug; Combo Route) route daily. 06/17/2021 Miscellaneous Medical Supply Mis 1 strip by [facility].(Non-Drug; Combo Route) route daily. 06/17/2021 clonAZEpam (KLONOPIN) [...] the Treatment of Subjects with de daniel [place] Coronary Artery Lesions PI: Jonathan Silva MD Pager #:[phone] Research Coordinators: Hemant Muniz, BS, BA, LEASE OUT MAN Pager #:[phone] Santos Quach RN Pager #: [phone] Purpose: The pivotal trial to support the [place] pre-market approval (PMA) of Absorb BVS. ABSORB III will evaluate the safety and effectiveness of the Absorb BVS System compared to the XIENCE in the treatment of subjects, including those with diabetes mellitus, with ischemic heart disease caused by up to two denovo salt river coronary artery lesions in separate epicardial vessels. [...] Target lesion(s) must be located in a salt river coronary artery with a visually estimated or quantitatively assessed %DS of ? 50% and < 100% with a TONYA flow of ? 1 and one of the following: stenosis ? 70%, an abnormal functional test (e.g., fractional flow reserve, stress test), unstable anginaor post-infarct angina. a. Lesion(s) must be located in a salt river coronary artery with RVD by visual estimation of ? 2.50 mmand ? 3.75 mm. b. Lesion(s) must be located in a salt river coronary artery with length by visual estimation [...] the Treatment of Subjects with de daniel [place] Coronary Artery Lesions PI: Jonathan Silva MD Pager #:[phone] Research Coordinators: Hemant Muniz, BS, BA, LEASE OUT MAN Pager #:[phone] Santos Quach RN Pager #: [phone] Purpose: The pivotal trial to support the [place] pre-market approval (PMA) of Absorb BVS. ABSORB III will evaluate the safety and effectiveness of the Absorb BVS System compared to the XIENCE in the treatment of subjects, including those with diabetes mellitus, with ischemic heart disease caused by up to two denovo salt river coronary artery lesions in separate epicardial vessels. [...] this encounter H&P Notes * Luke Luevano - 09/07/2013 8:41 AM EDT Pre-Cardiac Catheterization [...] proceed to cath. Luke Luevano MD Pager [phone] Rail Car Repairman documented in this encounter Procedure Notes * Provider, Scanning - 09/07/2013 7:22 PM EDTAssociated Order(s): SCAN DOC: CARDIAC CATH documented in this encounter Miscellaneous Notes * Miscellaneous - Provider, Scanning - 09/07/2013 7:22 PM EDT * Miscellaneous - Provider, Scanning - 09/07/2013 3:29 PM EDT * Discharge Summary - Suhas Tavares MD - 09/07/2013 11:44 AM EDT [facility] SAME DAY DISCHARGE SUMMARY Jammie Gottlieb 09/07/2013 Primary Care Provider: EDIE ELLIS MD Referring Shoder Filler: Taurus Menjivar MD Procedures: Left heart catheterization, coronary angiography, peripheral angiography. Indication: Jammie Gottlieb is a 38 y.o. female with cardiomyopathy (TTE 07/2013 LVEF=40%, LVEDD=52 , generalized LV hypokinesis, normal PA pressures) felt to possibly be vaenssa-, diabetes, hyperlipidemia, obesity and smoking referred for [...] AM EDT Hospital Encounter [place] [address] Arrived documented as of this encounter Procedures [...] (Bezet) 469 ms MUSE SYSTEM Calculated P [place] 14 degrees MUSE SYSTEM Calculated R [place] 7 degrees MUSE SYSTEM Calculated T [place] 13 degrees MUSE SYSTEM INTERPRETATION Normal sinus [...] Coronary atherosclerosis of unspecified type of vessel, salt river or graft documented in this encounter Administered Medications Inactive [...] Given 09/07/2013 9:50 AM EDT 25 mg sodium chloride 0.9% infusion 200 mL/hr, [...] RN) documented in this encounter Care Teams Pipeline Dispatcher Relationship Specialty Start Date End Date Edie Ellis MD [facility] [address] [place] [address] PCP - General 10/15/10 documented as of this encounter
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
--- OUTSIDE RECORDS SUMMARY | 2024-06-03 00:26 | XMS_ITS | Encounter Summary ---
Author Organization [facility] Address [facility] Jenna choco [place] [id number] Care Team Providers Care Appellate Conferee Name Role Phone Edie Ellis MD Primary Care Provider [phone] Reason for Referral * Psychiatric (Routine) - Complete - Patient Seen (External Appt Consult Notes Rcv'd) Specialty Diagnoses / Procedures Referred By Geraldine olmedo Referred To Contact Psychiatry Diagnoses Thoracic or lumbosacral neuritis or radiculitis, unspecified Kelby Gill MD [facility] [place] [address] Jazmin Angulo, PhD [facility] [place] [address] Referral ID Status Reason Start Date Expiration Date Visits Requested Visits Authorized [id number] Complete - Patient Seen (External Appt Consult Notes Rcv'd) Consult, Test & Treat 12/12/2011 06/09/2012 1 1 Encounter Details Date Type Department Care Team (Late st Contact Info) Description 12/12/2011 Orders [place] [address] Kelby Gill MD [facility] [place] [address] Thoracic or lumbosacral neuritis or radiculitis, unspecified (Primary Dx) Social History Tobacco Use Types [...] AM EDT Hospital Encounter Non-[place] [address] Arrived Scheduled Referrals Name Type Priority Associated Diagnoses Orde r Schedule REFERRAL TO PSYCHIATRY Outpatient Referral Routine Thoracic or lumbosacral neuritis or radiculitis, unspecified Ordered: 12/12/2011 documented as of this encounter Visit Diagnoses Diagnosis Thoracic or lumbosacral neuritis or radiculitis, unspecified- Primary documented in this encounter Care Teams Appellate Conferee Relationship Specialty Start Date End Date Edie Ellis MD [address] [place] [address] PCP - General 10/15/10 documented as of this encounter
--- OUTSIDE RECORDS SUMMARY | 2024-06-03 00:26 | XMS_ITS | Encounter Summary ---
Author Organization [facility] Address [facility] [place] [address] Care Team Providers Care Bladder Trimmer Name Role Phone Edie Ellis MD Primary Care Provider [phone] Reason for Visit * Reason Comments Sterilization Encounter Details Date Type Department Care Team (Late st Contact Info) Description 03/30/2014 2:30 PM EDT Office Visit Obstetrics [place] [address] Hola Valdez MD [facility] [place] [address] General counseling and advice on female contraception (Primary Dx) Discharge Disposition: Home Social History [...] - Inhaled Oxygen Concentration - - Weight 121.2 kg (267 lb 4.8 oz) 03/30/2014 2:21 PM EDT Height 163.8 cm (5' 4.5) 03/30/2014 2:21 PM EDT Body Mass Index 45.17 03/30/2014 2:21 PM EDT documented in this encounter Progress Notes * Hola Valdez MD - 03/30/2014 2:50 PM EDT COPY: Edie Ellis M.D. Jammie Gottlieb is a 38-year-old patient seen at the request of Edie Ellis for dependable form of contraception. She is para 3 with three vaginal deliveries. Her youngest child is 4 years old. She is not using any contraception but does not want to get . She has only had one period in the last eight months. She has multiple medical problems including diabetes, cardiomyopathy and atrial fibrillation although she is not on an anticoagulant. Her last Pap smear was two years ago and so her next Pap smear is due in one year. She has never had any cervical dysplasia treated. On examination, she is quite overweight. Examination of the head and neck, cardiovascular and respiratory systems is normal. Her rhythm is regular today. She is a little on the pale side. Breasts and axillae are normal. Abdomen and groin are normal. A large Graves speculum is used. Vulva, vagina and cervix are normal. Uterus is anteverted and normal. The adnexa are unremarkable. I discussed both the Mirena IUD and Essure. She is quite nervous and will probably have some difficulty with office hysteroscopy and placement of Essure. I therefore tried to guide her to the Mirena IUD. The added benefit is that she may have some heavy periods in the future and the Mirena IUD would take care of that. She has had that before and has had some problems with it. I recommended we do this under ultrasound guidance, and we will put in some numbing medication in her cervix to make her more comfortable as she remembers it being uncomfortable. I will schedule her as a hysterosonogram, possible Mirena IUD insertion under ultrasound guidance as she agreed that she will give that a try before Essure. Thirty minutes were spent on the visit and 20 minutes of that were spent in [id number] discussion. documented in this encounter Plan of Treatment Upcoming Encounters Date Type Department Care Team (Brian st Contact Info) Description 07/09/2024 10:00 AM EDT Hospital Encounter Non-Invasive [place] [phone] Arrived documented as of this encounter Visit Diagnoses Diagnosis General counseling and advice on female contraception- Primary Other general counseling and advice for contraceptive management documented in this encounter Care Teams Bladder Trimmer Relationship Specialty Start Date End Date Edie Ellis MD [facility] [address] [facility] [address] [place] [address] PCP - General 10/15/10 documented as of this encounter
--- OUTSIDE RECORDS SUMMARY | 2024-06-03 00:26 | XMS_ITS | Encounter Summary ---
Author Organization [facility] [place] [facility] [place] [address] Care Team Providers Care Family Services Manager Name Role Phone Edie Ellis MD Primary Care Provider Encounter Details Date Type Department Care Team (Late st Contact Info) Description 05/19/2011 Orders [place] [phone] Kelby Gill MD [facility] [place] [address] Social History Tobacco Use Types Packs/Day Years [...] AM EDT Hospital Encounter Non-Invasive [place] [phone] Arrived documented as of this encounter Visit Diagnoses Not on filedocumented in this encounter Care Teams Family Services Manager Relationship Specialty Start Date End Date Edie Ellis MD [facility] [address] [place] [address] PCP - General 10/15/10 documented as of this encounter
--- OUTSIDE RECORDS SUMMARY | 2024-06-03 00:26 | XMS_ITS | Encounter Summary ---
Author Organization [facility] Address [address] [place] [address] Care Team Providers Care Tire Service Technician Name Role Phone Edie Ellis MD Primary Care Provider [phone] Encounter Details Date Type Department Care Team ([facility] st Contact Info) Description 08/08/2021 Lab Requisition [facility] Pathology & Laboratory Medicine - [facility] [address] [place], [place] [id number] Outr Resulting Lab, Provider Social History Tobacco [...] Date/Time Associated Diagnosis Comments LYME AB Routine 08/07/2021 16:48 EDT documented in this encounter Results * LYME AB (08/07/2021 16:48 EDT) Lyme Ab Negative Negative 08/09/2021 10:37 EDT [facility] Blood VENOUS BLOOD / Unknown 08/07/2021 16:48 EDT 08/08/2021 16:06 EDT Provider Outr Resulting Lab IMMUNOLOGY A ND SEROLOGY ORDERABLES [facility] [address] [place] [address] documented in this encounter Visit Diagnoses Not on filedocumented in this encounter Care Teams Tire Service Technician Relationship Specialty Start Date End Date Edie Ellis MD [address] [place] [phone] PCP - General 03/21/19 documented as of this encounter
--- OUTSIDE RECORDS SUMMARY | 2024-06-03 00:26 | XMS_ITS | Encounter Summary ---
Author Organization [facility] [place] [address] Care Team Providers Care Outsole Tacker Name Role Phone Edie Ellis MD Primary Care Provider [phone] Encounter Details Date Type Department Care Team (Late st Contact Info) Description 09/02/2013 Telephone Cardiology at [address] [phone] Zaina Adkins CMA Social History Tobacco Use Types Packs/Day Years [...] encounter Miscellaneous Notes * Telephone Encounter - Zaina Adkins CMA - 09/02/2013 12:21 PM EDT Pre Cardiac Cath/PTCA Nursing Note Date of Cath:_09/07/2013 Indication:____CM Date of Labs:(within 30 days) Date of EKG: Medications: Stop Metformin 48 hour prior ( ) Last dose Insulin orders given Stop Coumadin days prior ( )Last dose Does patient have a contrast or shellfish allergy? _N If yes, was Prednisone RX given? Back Pain management: Understands potential for back pain.(Y ) Identifies pain management strategies. (Y ) Teach 0-10 pain intensity scale. (Y ) Education: Patient understands purpose of cardiac cath/PTCA. (Y ) Patient understands pre and post procedure care. (Y ) Patient receives SDP pre-procedure instruction card. (N ) Comments:Phone teaching. Pt has full understanding of procedure and feels well prepared. documented in this encounter Plan of Treatment Upcoming Encounters Date Type Department Care Team (Late st Contact Info) Description 07/09/2024 10:00 AM EDT Hospital Encounter Non-Invasive [place] [address] Arrived documented as of this encounter Visit Diagnoses Not on filedocumented in this encounter Care Teams Outsole Tacker Relationship Specialty Start Date End Date Edie Ellis MD [address] [place] [address] PCP - General 10/15/10 documented as of this encounter
--- OUTSIDE RECORDS SUMMARY | 2024-06-03 00:26 | XMS_ITS | Encounter Summary ---
Author Organization [facility] [place] [address] Care Team Providers Care Road Mixer Operator Name Role Phone Edie Ellis MD Primary Care Provider [phone] Reason for Visit * Reason Onset Date Comments Medication Refill 03/20/2015 Encounter Details Date Type Department Care Team (Late st Contact Info) Description 03/20/2015 Refill [place] [phone] Estrada Parikh MD [facility] [place] [address] Post laminectomy syndrome Social History Tobacco Use Types Packs/Day Years [...] AM EDT Hospital Encounter [place] [phone] Arrived documented as of this encounter Visit Diagnoses Diagnosis Post laminectomy syndrome Postlaminectomy syndrome, unspecified region documented in this encounter Care Teams Road Mixer Operator Relationship Specialty Start Date End Date Edie Ellis MD [address] [facility] [address] [place] [address] PCP - General 10/15/10 documented as of this encounter
--- OUTSIDE RECORDS SUMMARY | 2024-06-03 00:26 | XMS_ITS | Encounter Summary ---
Author Organization [facility] [place] [address] Care Team Providers Care Filament Coil Winder Name Role Phone Edie Ellis MD Primary Care Provider [phone] Encounter Details Date Type Department Care Team (Late st Contact Info) Description 02/15/2010 Orders Only Obstetrics [place] [address] Jessica Buchanan MD [facility] DR OBSTETRICS & [place] [address] Social History Tobacco Use Types Packs/Day Years Used Date Smoking Tobacco: Never Assessed [facility] Inpatient Questions Answer Date Recorded Does [...] AM EDT Hospital Encounter Non-Invasive [place] [phone] Arrived documented as of this encounter Procedures Procedure Name Priority Date/Time Associated Diagnosis Comments SURGICAL PATHOLOGY REPORT Routine 02/18/2010 10:26 AM EDT documented in this encounter Results * Surgical Pathology Report (02/18/2010 10:26 AM EDT) Surgical Pathology Report [id number] ? Location: BP; BP15; A The signing pathologist has (i) examined the relevant preparation(s) for the specimen(s) and (ii) rendered or confirmed the diagnosis(es). . ?Pathology Surgical Pathology Final Report Clinical Information Specimen Submitted: A - Placenta Clinical History: PPROM @ 35-1/7 weeks diabetes Clinical Diagnosis: Not provided Gross Description Labeled/Fixative: ? Placenta, fresh. Qty/Size/Weight: ?One, 11.2 x 13.9 x 2.5 cm, 377 g. Tissue Description: ?? [place] and discoid shaped. ?? Membranes: ? Marginal insertion. ??Mai-pink, semitransparent. ?? Cord: ?36.0 x 1.2 cm (attached) and 30.0 x 1.4 cm ?(detached); three vessels; eccentric insertion. ?? Surface: ? Brown and semitransparent. ?? Maternal Surface: ??Intact. ?? Parenchyma: ?The specimen is serially sectioned at 0.5-cm to ?1.0-cm intervals. ??Sections show spongy, brown ?parenchyma. Sections/Processing: ??Sections are submitted as follows: ??(1) membrane ?roll; (2) proximal and distal cord; (3) surface with parenchyma; (4) maternal surface with parenchyma; (5-8) credit resolution representative sections of surface with parenchyma; (5-8) maternal surface with parenchyma; (9-12) surface with parenchyma. ??(R12) ??aje/YX Microscopic Description Slides reviewed, microscopic description not recorded. Diagnosis placenta, cord and membranes: Positive for chorioamnionitis and funisitis. Villitis of unknown etiology is present (see Comment). maternal hemorrhages are present (2-3 ML.) CR-0 02/20/10 KO 02/22/10 Verified by: ? Radha Velázquez MD ?Pathologist ?(Electronic Signature) The attending pathologist whose signature appears on this report has reviewed all diagnostic slides and has edited the gross and/or microscopic portion of the report in rendering the final pathologic diagnosis. Comment Perivillous fibrin is focally present, but nor excessively so. Furthermore, grossly, the maternal surface does not look like Maternal Floor Infarction Immunohistochemistry Studies: . Comment Formalin-fixed, paraffin-embedded tissue sections are studied using the B-SA system technique with appropriate positive and negative controls. Block ? Antibody ?Result (Positive/Negative) C10 ?CMV ?negative C10 ? CD3, CD68 ?Both positive The T-cell(CD3) and macrophage(CD68) marker positivity is consistent with MALLIKA. These immunohistochemical studies provide ancillary information and are used only in conjunction with standard diagnostic procedures. [facility] 02/18/2010 10:2 6 AM EDT Jessica Buchanan MD PATHOLOGY/CYTOLOGY [facility] documented in this encounter Visit Diagnoses Not on filedocumented in this encounter Additional Health Concerns Infection Onset Date Last Indicated Resolved Time Rule Out COVID-19 07/01/2021 07/01/2021 07/01/2021 12:54 PM EDT documented as of this encounter Care Teams Filament Coil Winder Relationship Specialty Start Date End Date Edie Ellis MD [facility] [address] [facility] [address] [place] [address] PCP - General 10/15/10 documented as of this encounter
--- OUTSIDE RECORDS SUMMARY | 2024-06-03 00:27 | XMS_ITS | Encounter Summary ---
Author Organization [facility] Address [address] [place] [address] Care Team Providers Care Spa Director/Finance Name Role Phone Unavailable Primary Care Provider Unavailabl e Encounter Details Date Type Department Care Team (Late st Contact Info) Description 03/27/2003 Results Only [facility] conversion [address] [place] [address] Edie Kerr MD [address] [facility] [address] [place] [address] Social History Tobacco Use Types Packs/Day Years Used Date Smoking Tobacco: Never Assessed Sex and Gender Information Value Date Recorded Sex Assigned at Not on file Gender Identity Not on file Sexual Orientation Not on file documented as of this encounter Plan of Treatment Not on file documented as of this encounter Procedures Procedure Name Priority Date/Time Associated Diagnosis Comments CYTOPATHOLOGY Routine 03/27/2003 0:00 EDT documented in this encounter Results * CYTOPATHOLOGY (03/27/2003 0:00 EDT) Pathology Report: CYTOPATHOLOGY REPORT Reports generated via electronic interface contain original data; however they are lacking the format of the original report. Caution should be taken when reading/interpreti ng unformatted reports. Name: ? RAMY GOTTLIEB ? Accession #: ? [id number] : ? 1975 (Age: 27) ??F ?Collect Date: ? 03/27/2003 Location: ? [facility] ? Receive Date: ? 03/29/2003 Provider: ?EDIE KERR MD Copy to: ? Specimen/Source: ?ThinPrep Pap Test, Cervix/Endocervix Last Menstrual Period: ? 03/20/03 Previous Gynecologic Pathology: ? Yes: ? abnl 2000, pap redone per pt Other: ? HPVL - HPV testing requested if LSIL/ASCUS/IZZY on the current ThinPrep Pap test. ? SPECIMEN ADEQUACY ? Satisfactory for Evaluation - transformation zone component present GENERAL CATEGORIZATION ? Negative for Intraepithelial Lesion or Malignancy INTERPRETATION ? Fungal organisms present morphologically consistent with Paola species. ? Document reviewed and electronically signed by: ? MICHAEL Powell(ASCP) ? Report Date: ??04/04/2003 08:56 End of Report [facility] 03/27/2003 03/29/2003 Edie Kerr MD PATHOLOGY ORDERABLES [facility] [address] [place] [address] documented in this encounter Visit Diagnoses Not on filedocumented in this encounter
--- OUTSIDE RECORDS SUMMARY | 2024-06-03 00:27 | XMS_ITS | Encounter Summary ---
Author Organization [facility] Address [address] [place] [address] Care Team Providers Care Recreation Adviser Name Role Phone Unknown, Provider Primary Care Provider [phone] Encounter Details Date Type Department Care Team (Late st Contact Info) Description 03/15/2019 Results Only [facility]- PRISM [phone] Oscar Irene MD [address] [place] [address] Social History Tobacco Use Types Packs/Day Years Used Date Smoking Tobacco: Never Assessed Sex and Gender Information Value Date Recorded Sex Assigned at Not on file Gender Identity Not on file Sexual Orientation Not on file documented as of this encounter Plan of Treatment Not on file documented as of this encounter Procedures Procedure Name Priority Date/Time Associated Diagnosis Comments SURGICAL PATHOLOGY Routine 03/15/2019 15 :41 EDT documented in this encounter Results * SURGICAL PATHOLOGY (03/15/2019 15:41 EDT) Pathology Report: SURGICAL PATHOLOGY REPORT Reports generated via electronic interface contain original data; however they are lacking the format of the original report. Caution should be taken when reading/interpreting unformatted reports. Name: ? RAMY GOTTLIEB ? Accession #: ? [id number] ? : ? 1975 (Age: 43) ??F ? Collect Date: ? 03/15/2019 ? Location: ? [facility] ? Receive Date: ? 03/16/2019 ? Provider: OSCAR IRENE MD Copy to: MANISHA KERR MD ? Final Pathologic Diagnosis: ENDOMETRIUM, CURETTAGE: - Inactive to weakly proliferative endometrium with papillary syncytial metaplasia and glandular and stromal breakdown. See comment. - Scant fragments of benign endocervical tissue. Comment: Bench Jeweler slides of this case were reviewed at the intradepartmental consultation conference. Dr. Vazquez 03/19/2019 4:28 PM Document reviewed and electronically signed by: SPENCER VAZQUEZ MD Report ??Date: 03/19/2019 16:29 By the signature above, the attending physician certifies that he/she has personally conducted a gross and/or microscopic examination of the described specimens and rendered or confirmed the above diagnosis. Specimen(s) Received: Endometrial curettings Clinical History: Menorrhagia, dysmenorrhea; clinical diagnosis code: ??N92.0, N94.6, N94.10 Gross Description: ? Received in formalin labelled with proper patient identification (initials B, J) and endometrial curettings is an aggregate of mucus and blood clot, 2.0 x 2.0 x 1.8 cm. Entirely submitted in 1-4. ANNE Cuadra (ASCP) 03/16/2019 4:20 PM End of Report [facility] 03/15/2019 15:4 1 EDT 03/16/2019 15:41 EDT Oscar Irene MD PATHOLOGY ORDERABLES [facility] [address] [place] [address] documented in this encounter Visit Diagnoses Not on filedocumented in this encounter Care Teams Recreation Adviser Relationship Specialty Start Date End Date Unknown, Provider, PCP - General 10/04/15 03/20/19 documented as of this encounter
--- OUTSIDE RECORDS SUMMARY | 2024-06-03 00:27 | XMS_ITS | Encounter Summary ---
Author Organization [facility] Address [address] [place] [address] Care Team Providers Care Data Modeling Specialist Name Role Phone Edie Ellis MD Primary Care Provider [phone] Encounter Details Date Type Department Care Team (Late st Contact Info) Description 05/21/2020 Lab Requisition [facility] Pathology & Laboratory Medicine - [facility] [address] [place] [address] Oscar Keen MD [address] [place] [address] Excessive and frequent menstruation with regular cycle; Other specified postprocedural states Social History Tobacco Use Types Packs/Day Years Used Date Smoking Tobacco: Never Assessed Sex and Gender Information Value Date Recorded Sex Assigned at Not on file Gender Identity Not on file Sexual Orientation Not on file documented as of this encounter Plan of Treatment Not on file documented as of this encounter Procedures Procedure Name Priority Date/Time Associated Diagnosis Comments SURGICAL PATHOLOGY Today 05/18/2020 14 :35 EDT Excessive and frequent menstruation with regular cycle Other specified postprocedural states documented in this encounter Results * SURGICAL PATHOLOGY (05/18/2020 14:35 EDT) Final Diagnosis A. UTERUS, CERVIX, BILATERAL FALLOPIAN TUBES AND OVARIES, TOTAL HYSTERECTOMY AND BILATERAL SALPINGO-OOPHOREC BRANDIE: - Uterus: - Endometrium: - Secretory endometrium with tubal metaplasia. - Myometrium: - No specific pathologic features. - Serosa: - Peritoneal inclusion cyst. - Cervix: - Focal tubal metaplasia. - Fallopian tubes: - No specific pathologic features. - Ovaries: - No specific pathologic features. 05/27/2020 8:42 [facility] at 0842 Attestation There was significant resident/fellow involvement in the diagnostic evaluation of this case. By the signature below, the attending physician certifies that they have personally conducted a gross and/or microscopic examination of the described specimens and rendered or confirmed the above diagnosis. 05/27/2020 8:42 [facility] at 0842 Clinical History Menorrhagia, dysmenorrhea, history of endometrial ablation 05/27/2020 8:42 [facility] Gross Description A. Received in formalin labelled with proper patient identification (initials B, J) and uterus, bilateral fallopian tubes, bilateral ovaries is an intact uterus and cervix (I144 g, 11.0 cm cervix to fundus x 5.5 cm cornu to cornu x 4.9 cm anterior to posterior) with attached right fallopian tube (7.5 x 0.5 cm) and ovary (3.5 x 2.0 x 1.5 cm) and detached presumed left fallopian tube (9.5 x 0.5 cm) and ovary (5.0 x 2.0 x 1.5 cm). The uterine serosa is johnson-brown and smooth and disrupted significantly on the anterior surface. There is also a cystic structure measuring up to 1.0 cm in the anterior myometrium/serosa . The endometrium is johnson-white and atrophic and has a thickness of less than 0.1 cm. The myometrium is johnson-white and trabeculated and ranges from 1.0 cm to 3.0 cm in thickness. The ectocervix is johnson-white and smooth, and the endocervix is johnson-white with a herringbone pattern. The cut surface of the cervixlower uterine segment reveals multiple small cystic spaces predominantly in the posterior aspect. The left and right ovaries have a johnson-white lobulated outer surface and sectioning discloses multiple cystic spaces of the left ovary without excrescences. The left and right fallopian tubes have red blue and smooth serosa and sectioning discloses an unremarkable cut surface with keep that. Note, fimbriated ends are not definitively identified bilaterally. [employer] Support Planner sections are submitted as follows: BLOCK RUSSELL A1- service support representative right ovary A2- service support representative right fallopian tube including sections from each end A3- service support representative left ovary to include cystic spaces A4- service support representative left fallopian tube including sections from each end A5- anterior cervix A6-A7- service support representative full thickness anterior endomyometrium A8- anterior lower uterine segment A9- anterior myometrial/serosa l cyst A10- posterior cervix A11-A12- full-thickness posterior endomyometrium A13-14 posterior lower uterine segment Emmanuel Arnold, 05/22/2020 14:25 05/27/2020 8:42 EDT [facility] Resident/Sukhjinder w: Emmanuel Arnold, 05/27/2020 8:42 EDT [facility] Scanned Images 05/27/2020 8:42 EDT [facility] Tissue SPECIMEN FROM UTERUS / Unknown 05/18/2020 14:35 EDT 05/21/2020 17:54 EDT Oscar Keen MD PATHOLOGY ORDERABLES [facility] [address] [place] [address] documented in this encounter Visit Diagnoses Diagnosis Excessive and frequent menstruation with regular cycle Excessive or frequent menstruation Other specified postprocedural states documented in this encounter Care Teams Data Modeling Specialist Relationship Specialty Start Date End Date Edie Ellis MD [address] [place] [phone] PCP - General 03/21/19 documented as of this encounter
--- OUTSIDE RECORDS SUMMARY | 2024-06-03 00:27 | XMS_ITS | Encounter Summary ---
Author Organization [facility] Address [address] [place] [address] Care Team Providers Care Loft Worker Name Role Phone Unknown, Provider Primary Care Provider Encounter Details Date Type Department Care Team (Latest Contact Info) Description 03/15/2019 9:46 EDT - 03/15/2019 23:59 EDT Hospital Encounter [address] [address] Unknown, Provider, Discharge Disposition: Home or Self Care Social History Tobacco Use Types Packs/Day Years Used Date Smoking Tobacco: Never Assessed Sex and Gender Information Value Date Recorded Sex Assigned at Not on file Gender Identity Not on file Sexual Orientation Not on file documented as of this encounter Discharge Disposition Disposition Code Departure Means Destination Home or Self Shelter documented in this encounter Plan of Treatment Not on file documented as of this encounter Visit Diagnoses Not on filedocumented in this encounter Care Teams Loft Worker Relationship Specialty Start Date End Date Unknown, Provider, PCP - General 10/04/15 03/20/19 documented as of this encounter
--- OUTSIDE RECORDS SUMMARY | 2024-06-03 00:27 | XMS_ITS | Encounter Summary ---
Author Organization [facility] Address [address] [place] [address] Care Team Providers Care Fire Claims Adjuster Name Role Phone Edie Ellis MD Primary Care Provider [phone] Encounter Details Date Type Department Care Team ([facility] Contact Info) Description 12/15/2019 Lab Requisition [facility] Pathology & Laboratory Medicine - [facility] [address] [place] [address] Unknown, Provider, Social History Tobacco Use Types Packs/Day Years Used Date Smoking Tobacco: Never Assessed Sex and Gender Information Value Date Recorded Sex Assigned at Not on file Gender Identity Not on file Sexual Orientation Not on file documented as of this encounter Plan of Treatment Not on file documented as of this encounter Procedures Procedure Name Priority Date/Time Associated Diagnosis Comments HOLD SST Routine 12/15/2019 21:31 EST LH Routine 12/15/2019 9:54 EST FSH Routine 12/15/2019 9:54 EST documented in this encounter Results * HOLD SST (12/15/2019 21:31 EST) Hold Hold 12/15/2019 22:45 EST [facility] Blood VENOUS BLOOD / Unknown 12/15/2019 21:31 EST 12/15/2019 21:31 EST Provider Unknown LAB INFO SERVICE AND SUPPORT & PHONE RESULT [facility] [address] [place] [address] * LH (12/15/2019 9:54 EST) Luteinizing Hormone 2.3 See Note mIU/mL 12/16/2019 10:24 EST [facility] Comment: NOTE: Female Reference Ranges: Pre-Pubertal: ?<6.0 mIU/mL Menstruating: Follicular Phase(-12 to -4 days: ??1.9 - 12.5 mIU/mL Midcycle(-3 to +2 days): ?8.7 - 76.3 mIU/mL Luteal Phase(+4 to +12 days): ? 0.5 - 16.9 mIU/mL Post Menopausal: 15.9 - 54.0 mIU/mL Blood VENOUS BLOOD / Unknown 12/15/2019 9:54 EST 12/15/2019 21:30 EST Provider Unknown MD CHEMISTRY & BLOOD GA S ORDERABLES Performing Organization Address City/State/[facility] Co de Phone Number [facility] [address] [place] [address] * FSH (12/15/2019 9:54 EST) FSH 2.4 See Note mIU/mL 12/16/2019 10:24 EST [facility] Blood VENOUS BLOOD / Unknown 12/15/2019 9:54 EST 12/15/2019 21:30 EST Narrative [facility] - 12/16/2019 10:24 EST NOTE: Female FSH Reference Ranges (>= 13 Menstruating): PHYSIOLOGICAL STATUS ? REFERENCE RANGE ? Follicular (-12 to -4 days): ?? 2.5 - 10.2 mIU/mL Midcycle (-3 to +2 days): ?3.4 - 33.4 mIU/mL Luteal (+4 to +12 days): ? 1.5 - 9.1 mIU/mL Postmenopausal: ?23.0 - 116.3 mIU/mL Reference Ranges for female patients <13 years old have not been established. Provider Unknown CHEMISTRY & BLOOD GA S ORDERABLES [facility] [address] [place] [address] documented in this encounter Visit Diagnoses Not on filedocumented in this encounter Care Teams Fire Claims Adjuster Relationship Specialty Start Date End Date Edie Ellis MD [address] [place] [phone] PCP - General 03/21/19 documented as of this encounter
--- OUTSIDE RECORDS SUMMARY | 2024-06-03 00:27 | XMS_ITS | Encounter Summary ---
Author Organization [facility] Address [address] [place] [address] Care Team Providers Care Digital Photographic Printer Name Role Phone Unavailable Primary Care Provider Unavailabl e Encounter Details Date Type Department Care Team (Late st Contact Info) Description 02/21/2000 Results Only [facility] - Map conversion [address] [place] [address] Melodie Salguero CNM [facility] [place], [place] [id number] Social History Tobacco Use Types Packs/Day Years Used Date Smoking Tobacco: Never Assessed Sex and Gender Information Value Date Recorded Sex Assigned at Not on file Gender Identity Not on file Sexual Orientation Not on file documented as of this encounter Plan of Treatment Not on file documented as of this encounter Procedures Procedure Name Priority Date/Time Associated Diagnosis Comments CYTOPATHOLOGY Routine 02/21/2000 13:38 EST documented in this encounter Results * CYTOPATHOLOGY (02/21/2000 13:38 EST) Pathology Report: CYTOPATHOLOGY REPORT Reports generated via electronic interface contain original data; however they are lacking the format of the original report. Caution should be taken when reading/interpreti ng unformatted reports. Name: ? RAMY GOTTLIEB ? Accession #: ? [id number] : ? 1975 (Age: 24) ??F ?Collect Date: ? 02/21/2000 Location: ?Receive Date: ? 02/21/2000 Provider: ?ANEA LELONG CNM Copy to: ?ANEA LELONG CNM ? Specimen/Source: ?Pap Smear (One Slide) Last Menstrual Period: ? GYNECOLOGIC ??CYTOPATHOLOGY ??REPORT Name: JELLY GOTTLIEBVISHAL Smiley ?[facility] : 1975 ?? 24Y F ?Client ID: [id number] SS#: [id number] ? Clinician: LELONG CNM, ANEA ?? Location: [facility] ??Copy to: ?? Specimen: ?Pap Smear (One Slide) ? Source: Cervix/Endocervix ?Collected: 02/19/00 ? Received: 02/21/2000 ?LMP: 12/23/99 ? Hormone Therapy: No ? : Yes ?Radiation Therapy: No ?? Post : No ?Chemotherapy: No ?IUD: No ? Prev Abnormal Pap: No ?? Clinical Hx: ?(Blank bartlett indicate information not provided on requisition) SPECIMEN ADEQUACY: ? Satisfactory For Evaluation ?? GENERAL CATEGORIZATION: ? WITHIN NORMAL LIMITS ? Reviewed And Electronically Signed By: ? Gita Ruiz, CT(ASCP) ? Report Date: ?? 03/02/2000 [facility] Archived Tests - Final Diagnosis Text Field: Clinical History : ? Document reviewed and electronically signed by: ? Conversion ? Report Date: ??03/02/2000 00:00 End of Report [facility] 02/21/2000 13:3 8 EST 02/21/2000 13:39 EST Melodie Salguero CNM PATHOLOGY ORDERABLES [facility] [address] [place] [address] documented in this encounter Visit Diagnoses Not on filedocumented in this encounter
--- OUTSIDE RECORDS SUMMARY | 2024-06-03 00:27 | XMS_ITS | Encounter Summary ---
Author Organization [facility] Address [address] [place] [address] Care Team Providers Care Home Restoration Service Supervisor Name Role Phone Unavailable Primary Care Provider Unavailabl e Encounter Details Date Type Department Care Team (Late st Contact Info) Description 10/27/2000 Results Only [facility] - Maple conversion [address] [place] [address] Tom Koehler MD [address] [place] [address] Social History Tobacco Use Types Packs/Day Years Used Date Smoking Tobacco: Never Assessed Sex and Gender Information Value Date Recorded Sex Assigned at Not on file Gender Identity Not on file Sexual Orientation Not on file documented as of this encounter Plan of Treatment Not on file documented as of this encounter Procedures Procedure Name Priority Date/Time Associated Diagnosis Comments CYTOPATHOLOGY Routine 10/27/2000 0:00 EST documented in this encounter Results * CYTOPATHOLOGY (10/27/2000 0:00 EST) Pathology Report: CYTOPATHOLOGY REPORT Reports generated via electronic interface contain original data; however they are lacking the format of the original report. Caution should be taken when reading/interpreti ng unformatted reports. Name: ? RAMY GOTTLIEB ? Accession #: ? [id number] : ? 1975 (Age: 25) ??F ?Collect Date: ? 10/27/2000 Location: ? [facility] ? Receive Date: ? 11/02/2000 Provider: ?TOM KOEHLER MD Copy to: ? Specimen/Source: ?Conventional Pap Test, Cervix/Endocervix Last Menstrual Period: ? Menstrual/Pregnanc y Status: ? Post ? SPECIMEN ADEQUACY ? Satisfactory for evaluation. GENERAL CATEGORIZATION ? Within Normal Limits ? Document reviewed and electronically signed by: ? CHANDLER Partida(ASCP) ? Report Date: ??11/02/2000 14:46 End of Report [facility] 10/27/2000 11/02/2000 Tom Koehler MD PATHOLOGY ORDERABLES [facility] [address] [place] [address] documented in this encounter Visit Diagnoses Not on filedocumented in this encounter
--- OUTSIDE RECORDS SUMMARY | 2024-06-03 00:27 | XMS_ITS | Encounter Summary ---
Author Organization [facility] Address [address] [place] [address] Care Team Providers Care Aircraft Rigging And Controls Mechanic Name Role Phone Unknown, Provider Primary Care Provider Encounter Details Date Type Department Care Team (Late st Contact Info) Description 02/15/2018 Results Only [facility] [phone] Edie Kerr MD [address] [facility] [address] [place] [address] Social History Tobacco Use Types Packs/Day Years Used Date Smoking Tobacco: Never Assessed Sex and Gender Information Value Date Recorded Sex Assigned at Not on file Gender Identity Not on file Sexual Orientation Not on file documented as of this encounter Plan of Treatment Not on file documented as of this encounter Procedures Procedure Name Priority Date/Time Associated Diagnosis Comments PAP TEST- RESULT ONLY Routine 02/15/2018 0:00 EDT documented in this encounter Results * PAP TEST- RESULT ONLY (02/15/2018 0:00 EDT) Pathology Report: CYTOPATHOLOGY REPORT Reports generated via electronic interface contain original data; however they are lacking the format of the original report. Caution should be taken when reading/interpreti ng unformatted reports. Name: ? RAMY GOTTLIEB ? Accession #: ? [id number] ? : ? 1975 (Age: 42) ??F ?Collect Date: ? 02/15/2018 ? Location: ? [facility] ? Receive Date: ? 02/16/2018 ? Provider: EDIE KERR MD Copy to: ? Final Report SPECIMEN ADEQUACY ? Satisfactory for Evaluation - transformation zone component present GENERAL CATEGORIZATION ? Negative for Intraepithelial Lesion or Malignancy INTERPRETATION ? Fungal organisms present morphologically consistent with Paola species. Last Menstrual Period: 01/2018 Specimen/Source: ??Pap Test, Cervix, ThinPrep Imaging System with manual evaluation Document reviewed and electronically signed by: ? MICHAEL Robb(ASCP) ? Report ??Date: 02/18/2018 08:54 HPV with Pap Test ? Date Ordered: ? 02/18/2018 ? Status: ?? Signed Out ?Date Complete: ? 02/19/2018 ? By: ??System Interface ? Date Reported: ? 02/19/2018 ? Interpretation RESULT: Negative for HPV. No E6 or E7 mRNA is detected from HPV types 16,18,31,33,35, 39,45,51,52,56,58, 59,66, and 68 by clerical proofreader mediated amplification. Comments Document reviewed and electronically signed by: ? System Interface ? Report date: 02/19/2018 By the signature above, the attending physician certifies that he/she has personally conducted a gross and/or microscopic examination of the described specimens and rendered or confirmed the above diagnosis. End of Report [facility] 02/15/2018 02/16/2018 Edie Kerr MD PATHOLOGY ORDERABLES [facility] [address] [place] [address] documented in this encounter Visit Diagnoses Not on filedocumented in this encounter Care Teams Aircraft Rigging And Controls Mechanic Relationship Specialty Start Date End Date Unknown, Provider, PCP - General 10/04/15 03/20/19 documented as of this encounter
--- OUTSIDE RECORDS SUMMARY | 2024-06-03 00:27 | XMS_ITS | Encounter Summary ---
Author Organization [facility] Address [address] [place] [address] Care Team Providers Care Horticulture Supervisor Name Role Phone Unavailable Primary Care Provider Unavailabl e Encounter Details Date Type Department Care Team (Late st Contact Info) Description 03/02/2013 Results Only [facility] - [facility] ([facility] [address] [place], [place] [address] Edie Kerr MD [address] [facility] [address] [place] [address] Social History Tobacco Use Types [...] Diagnosis Comments PAP TEST- RESULT ONLY Routine 03/02/2013 0:00 EDT documented in this encounter Results * PAP TEST- RESULT ONLY (03/02/2013 0:00 EDT) Pathology Report: CYTOPATHOLOGY REPORT Reports generated via electronic interface contain original data; however they are lacking the format of the original report. Caution should be taken when reading/interpreti ng unformatted reports. Name: ? RAMY GOTTLIEB ? Accession #: ? [id number] ? : ? 1975 (Age: 37) ??F ?Collect Date: ? 03/02/2013 ? Location: ? [facility] ? Receive Date: ? 03/03/2013 ? Provider: EDIE KERR MD Copy to: ? Final Report SPECIMEN ADEQUACY ? Satisfactory for Evaluation - transformation zone component present GENERAL CATEGORIZATION ? Negative for Intraepithelial Lesion or Malignancy ?? Last Menstrual Period: 02/19/13 Specimen/Source: ??Pap Test, Cervix/Endocervix, ThinPrep Imaging System with manual evaluation Document reviewed and electronically signed by: ? MICHAEL Miller(ASCP) ? Report ??Date: 03/07/2013 12:31 HPV with Pap Test ? Date Ordered: ? 03/07/2013 ? Status: ?? Signed Out ?Date Complete: ? 03/09/2013 ? By: ??System Interface ? Date Reported: ? 03/09/2013 ? Interpretation RESULT: Negative for HPV. No E6 or E7 mRNA is detected from HPV types 16,18,31,33,35, 39,45,51,52,56,58, 59,66, and 68 by account planner mediated amplification. Comments Document reviewed and electronically signed by: ? System Interface ? Report date: 03/09/2013 By the signature above, the attending physician certifies that he/she has personally conducted a gross and/or microscopic examination of the described specimens and rendered or confirmed the above diagnosis. End of Report [facility] 03/02/2013 03/03/2013 Edie Kerr MD PATHOLOGY ORDERABLES [facility] [address] [place] [address] documented in this encounter Visit Diagnoses Not on filedocumented in this encounter
--- OUTSIDE RECORDS SUMMARY | 2024-06-03 00:27 | XMS_ITS | Encounter Summary ---
Author Organization [facility] Address [address] [place] [address] Care Team Providers Care Assistant Manager Bilingual Name Role Phone Unavailable Primary Care Provider Unavailabl e Encounter Details Date Type Department Care Team (Late st Contact Info) Description 01/05/2006 Results Only [facility] [place] [facility] [address] [place] [address] Edie Kerr MD [address] [facility] [address] [place] [address] Social History Tobacco Use Types [...] Priority Date/Time Associated Diagnosis Comments CYTOPATHOLOGY Routine 01/05/2006 0:00 EST documented in this encounter Results * CYTOPATHOLOGY (01/05/2006 0:00 EST) Pathology Report: CYTOPATHOLOGY REPORT Reports generated via electronic interface contain original data; however they are lacking the format of the original report. Caution should be taken when reading/interpreti ng unformatted reports. Name: ? RAMY GOTTLIEB ? Accession #: ? [id number] : ? 1975 (Age: 30) ??F ?Collect Date: ? 01/05/2006 Location: ? [facility] ? Receive Date: ? 01/06/2006 Provider: ?EDIE KERR MD Copy to: ? Specimen/Source: ?ThinPrep Pap Test, Cervix/Endocervix, processed on [employer] ThinPrep Imaging System, with manual evaluation Last Menstrual Period: ? 11/23/05 Other: ? HPVA - HPV testing requested if ASC-US on the current ThinPrep Pap test. ? SPECIMEN ADEQUACY ? Satisfactory for Evaluation - transformation zone component present GENERAL CATEGORIZATION ? Negative for Intraepithelial Lesion or Malignancy INTERPRETATION ? Fungal organisms present morphologically consistent with Paola species. ? Document reviewed and electronically signed by: ? CHANDLER Partida(ASCP) ? Report Date: ??01/08/2006 11:21 End of Report [facility] 01/05/2006 01/06/2006 Edie Kerr MD PATHOLOGY ORDERABLES Performing Organization Address City/State/[facility] Co de Phone Number [facility] [address] [place] [address] documented in this encounter Visit Diagnoses Not on filedocumented in this encounter
--- OUTSIDE RECORDS SUMMARY | 2024-06-03 00:27 | XMS_ITS | Encounter Summary ---
Author Organization [facility] Address [address] [place] [address] Care Team Providers Care Marine Equipment Engineer Name Role Phone Unavailable Primary Care Provider Unavailabl e Encounter Details Date Type Department Care Team (Late st Contact Info) Description 05/05/2004 Results Only [facility] [place] [facility] [place] conversion [address] [place] [address] Gaudencio Calvin, DO [facility] [place] [address] Social History Tobacco Use Types Packs/Day Years Used Date Smoking Tobacco: Never Assessed Sex and Gender Information Value Date Recorded Sex Assigned at Not on file Gender Identity Not on file Sexual Orientation Not on file documented as of this encounter Plan of Treatment Not on file documented as of this encounter Procedures Procedure Name Priority Date/Time Associated Diagnosis Comments SURGICAL PATHOLOGY Routine 05/05/2004 0:00 EDT documented in this encounter Results * SURGICAL PATHOLOGY (05/05/2004 0:00 EDT) Pathology Report: SURGICAL PATHOLOGY REPORT Reports generated via electronic interface contain original data; however they are lacking the format of the original report. Caution should be taken when reading/interpreting unformatted reports. Name: ? RAMY GOTTLIEB ? Accession #: ? [id number] ? : ? 1975 (Age: 28) ??F ? Collect Date: ? 05/05/2004 ? Location: ? [facility] ? Receive Date: ? 05/06/2004 ? Provider: GAUDENCIO CALVIN DO Copy to: ? Final Pathologic Diagnosis: ? Disc material, L5-S1, excision: - Fibrocartilaginous tissue consistent with intervertebral disc material. ??Gross only. ?? Document reviewed and electronically signed by: NILTON JUNIOR MD Report ??Date: 05/07/2004 16:10 By the signature above, the attending physician certifies that he/she has personally conducted a gross and/or microscopic examination of the described specimens and rendered or confirmed the above diagnosis. Specimen(s) Received: ? L5-S1 L Clinical History: ? L5-S1 L Gross Description: ? Received in formalin labeled [place] and L5-S1 disc are four johnson-yellow to white portions of fibrocartilaginous tissue which measure 1.5 x 1.5 x 1.0 cm in aggregate. ??No definitive nodule is identified. ??No sections submitted. Gross only. ??(Ihsan Bailey/[facility] End of Report [facility] 05/05/2004 05/06/2004 14: 39 EDT Gaudencio Calvin DO PATHOLOGY ORDERAB LES [facility] [address] [place] [address] documented in this encounter Visit Diagnoses Not on filedocumented in this encounter
--- OUTSIDE RECORDS SUMMARY | 2024-06-03 00:27 | XMS_ITS | Encounter Summary ---
Author Organization [facility] Address [address] [place] [address] Care Team Providers Care Engine Inspector Name Role Phone Unavailable Primary Care Provider Unavailabl e Encounter Details Date Type Department Care Team (Late st Contact Info) Description 09/14/2000 Results Only [facility] [place] conversion [address] [place] [address] Unknown, Provider, Social History Tobacco Use Types Packs/Day Years Used Date Smoking Tobacco: Never Assessed Sex and Gender Information Value Date Recorded Sex Assigned at Not on file Gender Identity Not on file Sexual Orientation Not on file documented as of this encounter Plan of Treatment Not on file documented as of this encounter Procedures Procedure Name Priority Date/Time Associated Diagnosis Comments FLM AMNIOTIC FLUID Routine 09/14/2000 9:27 EDT documented in this encounter Results * FLM AMNIOTIC FLUID (09/14/2000 9:27 EDT) Appearance, amn. fld. STRAW AND HAZY (POST CENTRIFUGA TION) [facility] Lung Maturity 70 mg/g [facility] Comment: Mature: 55 mg/g and above. Borderline: 40-54 mg/g Immature: less than or equal to 39 mg/g. Result may be invalid with renal anomaly. Note new reference range. 09/14/2000 9:27 EDT 09/14/2000 16:00 EDT Provider Unknown [facility] UNIT COLLECT ORDERABLES [facility] [address] [place] [address] documented in this encounter Visit Diagnoses Not on filedocumented in this encounter
--- NOTE | 2024-06-03 08:23 | DI.MAMMO_ITS ---
Exam(s) MAMMO SCREENING EXAM: MAMMO SCREENING CLINICAL HISTORY: SCREENING, Z12.31 TECHNIQUE: Mammograms were interpreted according to the usual protocol including computer analysis w [employer] VISION CAD system, tomosynthesis and C-view imaging. COMPARISON: 2014 through 2022 FINDINGS: The breasts are composed of mainly fatty density , Breast Density category A. No suspicious masses or suspicious microcalcifications are seen. No skin thickening or abnormal axillary lymph nodes are seen. There has been no significant change from prior exams. IMPRESSION: BI-RADS Category 1, Negative mammogram Yearly screening mammography is recommended. Breast Density - Category A, fatty density. A negative radiographic report should not delay biopsy if a dominant or clinically suspicious mass is present. Up to ten percent of cancers are not identified on mammography. A negative report may reinforce clinical impression. Adenosis and dense breasts may obscure an underlying neoplasm. False positive reports average 6 to 10%. Patient will receive a letter notifying them of these results.
== END ==
PROVIDERS: PCP Family Medicine; Visit Provider Family Medicine
DX: Z12.31 Encounter for screening mammogram for malignant neoplasm of breast (principal)
CPT/HCPCS: 77063; 77067

== ENCOUNTER 2024-07-05 19:12 | Emergency (ER) | payer MEDICARE, MEDICAID, SELFPAY ==
[2024-07-05] VITALS (21 sets, daily range): BP systolic 103–161; BP diastolic 57–128; PULSE 82–146; RESP 19–62; TEMP 36.1; O2SAT 92–97
--- NOTE | 2024-07-05 19:00 | RT.EKG_ITS ---
APPROVED REPORT Exam: Resting ECG Reason for Exam: FALL Patient Location: E HR:88 bpm ECG Measurements Heart Rate 88 AXIS OR 157 P 55 QRSd 90 QRS 12 QT 396 T 33 QTc 479 Conclusion Sinus rhythm...normal P axis, V-rate 60- 99 Low voltage, extremity and precordial leads...extremity<0.5mV, precordial<1.0mV Consider anteroseptal infarct...Q >30mS, dimin R, V1-V2 Narrow complex normal sinus rhythm at a rate of 88. Normal axis. Intervals within normal limits. L ow voltage. Voltage appears slightly lower compared to prior dated last year.
--- NOTE | 2024-07-05 19:15 | DI.RAD_ITS ---
Exam(s) XR FOREARM LT EXAM: XR FOREARM LT CLINICAL HISTORY: Left forearm pain. TECHNIQUE: 2D digital imaging was performed of the left forearm. Two views were obtained. AP and l ateral views were obtained. COMPARISON: No exams were available for comparison FINDINGS: BONES: No acute fracture is present. No bony destructive lesion is seen. Visualized portion of elbow and wrist joints are unremarkable. SOFT TISSUE: Normal. IMPRESSION: Unremarkable radiographs of the left forearm. DATA REPOSITORY: RADIATION DOSE DELIVERED:
--- NOTE | 2024-07-05 19:15 | DI.RAD_ITS ---
Exam(s) XR SHOULDER RT 1V EXAM: XR SHOULDER RT 1V CLINICAL HISTORY: Right shoulder pain. TECHNIQUE: 2D digital imaging was performed of the right shoulder. One images were obtained. AP vi ews were obtained. COMPARISON: CR XR SHOULDER RT COMPLETE 2+V from 02/11/2022 FINDINGS: This is a limited AP view of the right shoulder. There is normal alignment of the acromioclavicular and glenohumeral joint. No displaced fracture is identified. IMPRESSION: Limited single view of the right shoulder shows no acute abnormality. DATA REPOSITORY: RADIATION DOSE DELIVERED:
--- NOTE | 2024-07-05 19:15 | DI.RAD_ITS ---
Exam(s) XR ELBOW RT COMPLETE EXAM: XR ELBOW RT COMPLETE CLINICAL HISTORY: Right shoulder pain. TECHNIQUE: 2D digital imaging was performed of the left elbow. Two images were obtained. AP and la teral views were obtained. COMPARISON: CR,XR XR ELBOW RT COMPLETE from 09/15/2020 FINDINGS: Only two views were obtained. No gross alignment abnormalities identified. No acute fracture or dis location is seen. The soft tissues are unremarkable. IMPRESSION: Two views of the right elbow were obtained. No acute fracture or dislocation. DATA REPOSITORY: RADIATION DOSE DELIVERED:
[2024-07-05] MEDS: fentaNYL 100 MCG/2 ML VIAL 50 MCG IVP (19:25)
--- NOTE | 2024-07-05 19:30 | DI.CT_ITS ---
Exam(s) CT HEAD CERVICAL SPINE WO EXAM: CT HEAD CERVICAL SPINE WO CLINICAL HISTORY: cervical tenderness. TECHNIQUE: Imaging Protocol: Axial computed tomography images with coronal and sagittal reformatted images were created and reviewed COMPARISON: CT CT HEAD WO from 08/03/2022 FINDINGS: BRAIN: There is significant artifact over the posterior fossa There are no skull fractures nor fluid in the visualized paranasal sinuses. There is no evidence of intracranial hemorrhage, mass effect, or shift of midline structures. There are no extra-axial fluid collections. The ventricles are not enlarged or shifted and there is no blo od within the ventricular system nor within the basal cisterns. CERVICAL SPINE: There is no evidence of fracture nor listhesis. No significant prevertebral soft tissue swelling. No prominent disc space narrowing. No significant facet arthropathy nor facet fusion. There is no significant facet joint malalignment. No significant osseous lesions evident. IMPRESSION: No obvious acute intracranial findings on this noninfused CT scan of the brain.Evaluation of the post erior fossa is somewhat limited due to significant artifact. No evidence of cervical spine fracture, malalignment, nor acute compromise of the cervical spinal can al. RADIATION DOSE DELIVERED: Total DLP DATA REPOSITORY: All CT scans at this facility are submitted to the National Radiology Data Registry (NRDR) Dose Index Registry (DIR) with the [employer] (ACR). RADIATION OPTIMIZATION: All CT scans at this facility use at least one of these dose optimization te chniques: automated exposure control; mA and/or kV adjustment per patient size (includes targeted exa ms where dose is matched to clinical indication); or iterative reconstruction.
--- NOTE | 2024-07-05 19:32 | DI.CT_ITS ---
Exam(s) CT CHEST/ABD/PEL W CT THORACIC LUMBAR SPINE REC EXAM: CT CHEST/ABD/PEL W CLINICAL HISTORY: Abdominal pain trauma TECHNIQUE: Imaging Protocol: Axial computed tomography images with coronal and sagittal reformatted images were created and reviewed CONTRAST MATERIAL: Intravenous: Omnipaque 350 contrast volume:100 mL Oral: No COMPARISON: CT CT CHEST PE CTA from 09/07/[address] THORACIC LUMBAR SPINE REC from 07/05/2024 FINDINGS: CHEST: Tracheobronchial tree: Patent where visualized. Pulmonary parenchyma: No consolidation or dominant measurable mass. No architectural distortion. Visualized thyroid gland: Unremarkable. Mediastinum and Kayla: No dominant adenopathy or fluid collection. The esophagus is unremarkable. Pleura: No effusion or pneumothorax. Heart: The heart is not dilated. No coronary artery calcifications are seen. No pericardial effusion. Pulmonary arteries: Due to the timing of the bolus, peripheral pulmonary artery evaluation is subopti mal. No large central pulmonary embolism is present. Aorta: Thoracic aorta non-dilated. No evidence of dissection. Lymph nodes: Within normal limits. Tubes, Catheters, and Lines: There is a monitoring device in the soft tissues of the left lateral asad st wall. Soft tissues: Unremarkable. Bones:Within normal limits for the patient's age. CT thoracic spine recons: Age-appropriate degenerative changes are present. No acute fracture or sub luxation is present. CT lumbar spine recons: Age-appropriate degenerative changes are present. No acute fracture or sublu xation is present. ABDOMEN: Liver: Normal density. No measurable mass. Portal, Superior Mesenteric, and Splenic Veins: Unremarkable. Gallbladder and Biliary Tract: No radiodense calculus or dilation. Pancreas: Normal density, no abnormal calcifications or inflammatory process. Spleen: Normal. Adrenals: No masses seen. Kidneys: Normal size, contour and axis. No radiodense stones or obstructive uropathy. No masses seen. Abdominal Aorta: Abdominal portion non-dilated. Atherosclerotic calcification is present. Bowel: No obstruction or bowel wall thickening. Appendix is unremarkable. Peritoneal Cavity: No ascites, collection or mesenteric inflammatory response. No free air. Lymph Nodes: Within normal limits. Bones: Within normal limits for the patient's age. Soft Tissues: Unremarkable. PELVIS: Bladder: Symmetric distention, no gross wall thickening. Reproductive Organs: Unremarkable as visualized. Lymph Nodes: Within normal limits. Bones: Within normal limits. IMPRESSION: 1. No evidence of acute thoracic injury. 2. No acute abdominal or pelvic organ injury. 3. No acute fracture or subluxation is seen in the thoracic or lumbar spine. RADIATION DOSE DELIVERED: Total DLP DATA REPOSITORY: All CT scans at this facility are submitted to the National Radiology Data Registry (NRDR) Dose Index Registry (DIR) with the [employer] (ACR). RADIATION OPTIMIZATION: All CT scans at this facility use at least one of these dose optimization te chniques: automated exposure control; mA and/or kV adjustment per patient size (includes targeted exa ms where dose is matched to clinical indication); or iterative reconstruction.
[2024-07-05] MEDS: HYDROmorphone 2 MG/ML SYR 0.5 MG IVP (19:34)
[2024-07-05 19:45] LABS: Abs Immature Grans 0.01 10^3/uL (0.0-0.06); Absolute Basophil Count 0.04 10^3/uL (0.0-0.2); Absolute Eosinophil Count 0.11 10^3/uL (0.0-0.7); Absolute Lymphocyte Count 3.46 10^3/uL (1.2-3.4); Absolute Monocyte Count 0.41 10^3/uL (0.1-0.8); Basophils % 0.6 %; Eosinophils % 1.5 %; HCT 40.2 % (36.0-46.0); Immature Grans % 0.1 %; Lymphocytes % 47.9 %; MCH 31.7 pg (27.0-33.0); MCHC 34.8 % (32.0-36.0); MCV 91 fL (80-95); MPV 10.3 fL (8.0-11.0); Monocytes % 5.7 %; Neutrophils % 44.2 %; Platelet Count 187 10^3/uL (130-400); RBC 4.41 10^6/uL (3.93-5.22); RDW 12.5 % (11.7-14.6); RDW-SD 41.7 fL; WBC 7.23 10^3/uL (4.4-10.8)
--- OUTSIDE RECORDS SUMMARY | 2024-07-05 19:46 | XMS_ITS | Data Portability ---
Author Organization [facility], [facility] [place] [address] Assessment Encounter Date Assessment Date Assessment LastModified by Organization Details LastModified Time 01/06/2024 01/06/2024 The total time devoted to today's encounter, including both the xaoo-je-dduz time with the patient and/or family/caregiver and fjd-eeak-mt-face time I personally spent is 32 minutes. Not available 01/06/2024 17:05:42 01/27/2024 01/27/2024 Note created by Shabbir Fall, medical student at [employer] I took a history and did an exam on the patient. Manisha Ellis MD The total time devoted to today's encounter, including both the vbee-bz-knfj time with the patient and/or family/caregiver and rkm-ohdt-mo-face time I personally spent is 32 minutes. [...] screenings consistent with USPSTF and ACIP guidelines [facility] Not available 05/27/2024 14:23:59 Plan of Treatment Reminders Order Date Submit Date Provider Last Modified By Organization Details Last Modified Time Details Appointments Follow Up 2023 04:20P M Not available Not available Not available Lab HbA1c (hemoglob in A1c), blood 2023 [address] , [place], [address], 01/28/2024 18:39:36 drug screen, urine 2023 024 [facility], [address], [place], [address], 05/27/2024 16:05:20 hemoglobi n A1C, fingersti ck 2023 024 [facility], [address], [place], [address], 05/27/2024 16:05:20 microalbu min, urine [email or web address] [place] [address] , [place], [address], 06/03/2024 11:57:28 Referral psychiatr ist referral - Jammie has longstand ing recurrent depressio n, she has had suicidal attempts, and was recently hospitali zed with suicidal intent. She has a lot of stressors with her own illness and a daughter with mental health issues as well. She has been seen by both counsello rs and a prescribe r in the past at [facility]. I am feeling that having a psychiatr [...] XL once a day. 2023 024 [email or web address] [facility], [address] [place], [address], 04/13/2024 11:20:56 Procedures None recorded. Surgeries None recorded. Imaging MAMMO, screening , digital, bilateral 2023 [email or web address] [facility], [address], [place], [address], 06/03/2024 16:03:35 Medication Orders Dilaudid 4 mg tablet 2023 024 FELISA [facility], [address] [place] [address], [id number], 01/06/2024 17:03:04 lamotrigi ne 150 mg tablet 2023 024 jack [facility], [address] [place] [address], [id number], 01/27/2024 11:20:48 ketoconaz ole 2 % topical cream 2023 024 FELISA [facility], [address] [place] [address], [id number], 01/27/2024 12:01:34 hydromorp romain 4 mg tablet 2023 024 FELISA [facility], [address] [place] [address], [id number], 03/02/2024 15:20:13 hydromorp romain 4 mg tablet 2023 024 [email or web address] [facility], [address] [place] [address], [id number], 03/02/2024 16:33:22 hydromorp romain 4 mg tablet 2023 024 FELISA [facility], [address] [place] [address], [address], 03/02/2024 15:22:08 melatonin 10 mg sublingua l tablet 2023 024 FELISA [facility], [address] [place] [address], [address], 03/02/2024 15:19:52 clonazepa m 1 mg tablet 2023 024 FELISA [facility], [address] [place] [address], [address], 05/27/2024 14:27:54 Vascepa 1 gram capsule 2023 024 [email or web address] [facility], [address] [place] [address], [address], 05/27/2024 16:10:30 Adult Low Dose Aspirin 81 mg tablet,de layed release 2023 024 FELISA [facility], [address] [place] [address], [address], 05/27/2024 16:34:36 melatonin 10 mg sublingua l tablet 2023 024 [email or web address] [facility], [address] [place] [address], [id number], 05/27/2024 16:10:30 pregabali n 100 mg capsule 2023 024 FELISA [facility], [address] [place] [address], [id number], 05/27/2024 16:35:19 lamotrigi ne 200 mg tablet 2023 024 [email or web address] [facility], [address] [place] [address], [address], 05/27/2024 16:10:30 magnesium oxide 400 mg (241.3 mg magnesium ) tablet 2023 024 [email or web address] [facility], [address] [place] [address], [id number], 05/27/2024 16:10:30 Vitamin B-2 100 mg tablet 2023 024 [email or web address] [facility], [address] [place] [address], [id number], 05/27/2024 16:10:30 bupropion HCl XL 150 mg 24 hr tablet, extended release 2023 024 FELISA [facility], [address] [place] [address], [address], 07/04/2024 16:54:32 bupropion HCl XL 300 mg 24 hr tablet, extended release 2023 024 FELISA [facility], [address] [place] [address], [address], 07/04/2024 16:54:36 ketoconaz ole 2 % topical cream 2023 024 [email or web address] [facility], [address] [place] [address], [address], 05/27/2024 16:10:30 valacyclo vir 500 mg tablet 2023 024 [email or web address] [facility], [address] [place] [address], [address], 05/27/2024 16:10:30 omeprazol e 20 mg capsule,d elayed release 2023 024 [email or web address] [facility], [address] [place] [address], [address], 05/27/2024 16:10:30 rosuvasta tin 10 mg tablet 2023 024 [email or web address] [facility], [address] [place] [address], [address], 05/27/2024 16:10:30 albuterol sulfate HFA 90 mcg/actua tion aerosol inhaler 2023 024 [email or web address] [facility], [address] [place] [address], [address], 05/27/2024 16:10:30 cyanocoba ronna (vit B-12) 1,000 mcg tablet 2023 024 [email or web address] [facility], [address] [place] [address], [id number], 05/27/2024 16:10:30 metoprolo l succinate ER 100 mg tablet,ex tended release 24 hr 2023 024 chepe [facility], [address] [place] [address], [id number], 05/27/2024 16:10:30 Farxiga 5 mg tablet 2023 024 FELISA [facility], [address] [place] [address], [address], 05/27/2024 16:34:49 fluconazo le 150 mg tablet 2023 024 chepe [facility], [address] [place] [address], [address], 05/27/2024 16:10:30 hydromorp romain 4 mg tablet 2023 024 FELISA [facility], [address] [place] [address], [address], 05/27/2024 16:35:24 hydromorp romain 4 mg tablet 2023 024 FELISA [facility], [address] [place] [address], [address], 05/27/2024 16:35:24 hydromorp romain 4 mg tablet 2023 024 FELISA [facility], [address] [place] [address], [place], [address], 05/27/2024 16:35:16 naratript an 2.5 mg tablet 2023 024 [facility], [address] [place] [address], [address], 05/27/2024 16:10:30 prochlorp erazine maleate 10 mg tablet 2023 024 [facility], [address] [place] [address], [address], 05/27/2024 16:10:30 estradiol 1 mg tablet 2023 024 [facility], [address] [place] [address], [place], [address], 05/27/2024 16:10:30 metformin ER 500 mg tablet,ex tended release 24 hr 2023 024 [facility], [address] [place] [address], [address], 07/04/2024 17:03:24 Trulicity 3 mg/0.5 mL subcutane ous pen injector 2023 024 [facility], [address] [place] [address], [address], 05/27/2024 16:10:30 levothyro xine 50 mcg tablet 2023 024 [facility], [address] [place] [address], [address], 05/27/2024 16:10:30 ketoconaz ole 2 % topical cream 2023 024 FELISA [facility], [address] [place], [address], 07/04/2024 17:05:43 valacyclo vir 500 mg tablet 2023 024 FELISA [facility], [address] [place], [address], 07/04/2024 17:11:55 Patient TargetsNo targets recorded. Patient Instructions Encounter Date Encounter Id Patient Instructions Last Modified By Organization Details Last Modified Time 01/06/2024 [id number] Your home work i s to walk the dog three times a week. Call Randi Nugent [phone] I made a referral to [facility] for a psychiatrist. back to dilaudid 2 mg pills. Not available 01/06/2024 11:23:04 01/27/2024 [id number] Take lamictal 200mg once a day in the morning instead of evening. Call back if you continue to have sleep issues so we can reduce the dose back to 175mg Please return to the ED if you start to feel unsafe or have suicidal thoughts. [facility] will call you to schedule an appointment. Please call Randi as well. Walk your dog outside 2-3x a week [email or web address] Not available 01/27/2024 14:43:31 05/27/2024 [id number] Continue walking and choosing fruits and vegetables [...] well. She has been seen by both medical office manager and a prescriber in the past at [facility]. I am feeling that having a [...] XL once a day. Referring Physician: Manisha Ellis [facility], Encounter Date: 01/06/2024 Urologist Referral for Urina ry incontinence Worsening incontinence. S/p hysterectomy. 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, most recent ECHO 03/2023 EF 42% Referring Physician: Manisha Ellis [facility], Encounter Date: 03/31/2024 Results Created Date Observation Date Name Description Value Unit Range Abnormal Flag LastModifiedBy Organization Detail LastModifiedTime 12/31/1912/31/2023 COMPL ETE BLOOD COUNT W/DIF F WBC 6.91 10_3/ uL 4.4-10 .8 normal Not Available [address] [place], [address] 12/31/2023 14:02:01 12/31/19 24 12/31/2023 COMPL ETE BLOOD COUNT W/DIF F RBC 5.01 10_6/ uL 3.93-5 .22 normal Not Available [address] [place], [address] 12/31/2023 14:02:01 12/31/19 24 12/31/2023 COMPL ETE BLOOD COUNT W/DIF F HGB 15.1 g/dL 11.2-1 5.7 normal Not Available [address] [place], [address] 12/31/2023 14:02:01 12/31/19 24 12/31/2023 COMPL ETE BLOOD COUNT W/DIF F HCT 44.5 % 36.0-4 6.0 normal Not Available [address] [place], [address] 12/31/2023 14:02:01 12/31/19 24 12/31/2023 COMPL ETE BLOOD COUNT W/DIF F MCV 89 fL 80-95 normal Not Available Rebecca woodall [address] [place], [address] 12/31/2023 14:02:01 12/31/19 24 12/31/2023 COMPL ETE BLOOD COUNT W/DIF F MCH 30.1 pg 27.0-3 3.0 normal Not Available [address] [place], [address] 12/31/2023 14:02:01 12/31/19 24 12/31/2023 COMPL ETE BLOOD COUNT W/DIF F MCHC 33.9 % 32.0-3 6.0 normal Not Available [address] [place], [address] 12/31/2023 14:02:01 12/31/19 24 12/31/2023 COMPL ETE BLOOD COUNT W/DIF F RDW 13.6 % 11.7-1 4.6 normal Not Available [address] [place], [address] 12/31/2023 14:02:01 12/31/19 24 12/31/2023 COMPL ETE BLOOD COUNT W/DIF F platelet count 235 10_3/ uL 130-40 0 normal Not Available [address] [place], [address] 12/31/2023 14:02:01 12/31/19 24 12/31/2023 COMPL ETE BLOOD COUNT W/DIF F MPV 9.6 fL 8.0-11 .0 normal Not Available [address] [place], [address] 12/31/2023 14:02:01 12/31/19 24 12/31/2023 COMPL ETE BLOOD COUNT W/DIF F neutrophils % 44.8 Not Available [address] [place], [address] 12/31/2023 14:02:01 12/31/19 24 12/31/2023 COMPL ETE BLOOD COUNT W/DIF F lymphocytes % 46.5 Not Available [address] [place], [address] 12/31/2023 14:02:01 12/31/19 24 12/31/2023 COMPL ETE BLOOD COUNT W/DIF F monocytes % 5.6 Not Available Mario heck [address] [place], [address] 12/31/2023 14:02:01 12/31/19 24 12/31/2023 COMPL ETE BLOOD COUNT W/DIF F eosinophils % 2.0 Not Available [address] [place], [address] 12/31/2023 14:02:01 12/31/19 24 12/31/2023 COMPL ETE BLOOD COUNT W/DIF F basophils % 1.0 Not Available Mario heck [address] [place], [address] 12/31/2023 14:02:01 12/31/19 24 12/31/2023 COMPL ETE BLOOD COUNT W/DIF F immature grans % 0.1 Not Available [address] [place], [address] 12/31/2023 14:02:01 12/31/19 24 12/31/2023 COMPL ETE BLOOD COUNT W/DIF F nucleated RBC 0.0 % 0.0-0. 3 normal Not Available [address] [place], [address] 12/31/2023 14:02:01 12/31/19 24 12/31/2023 COMPL ETE BLOOD COUNT W/DIF F absolute neutrophil count 3.09 10_3/ uL 1.2-6. 7 normal Not Available [address] [place], [address] 12/31/2023 14:02:01 12/31/19 24 12/31/2023 COMPL ETE BLOOD COUNT W/DIF F absolute lymphocyte count 3.21 10_3/ uL 1.2-3. 4 normal Not Available [address] [place], [address] 12/31/2023 14:02:01 12/31/19 24 12/31/2023 COMPL ETE BLOOD COUNT W/DIF F absolute monocyte count 0.39 10_3/ uL 0.1-0. 8 normal Not Available [address] [place], [address] 12/31/2023 14:02:01 12/31/19 24 12/31/2023 COMPL ETE BLOOD COUNT W/DIF F absolute eosinophil count 0.14 10_3/ uL 0.0-0. 7 normal Not Available [address] [place], [address] 12/31/2023 14:02:01 12/31/19 24 12/31/2023 COMPL ETE BLOOD COUNT W/DIF F absolute basophil count 0.07 10_3/ uL 0.0-0. 2 normal Not Available [address] [place], [address] 12/31/2023 14:02:01 12/31/19 24 12/31/2023 COMPR EHENS VIVIANA METAB OLIC PANEL calcium 9.1 mg/dL 8.5-10 .1 normal Not Available [address] [place], [address] 12/31/2023 14:24:03 12/31/19 24 12/31/2023 COMPR EHENS VIVIANA METAB OLIC PANEL glucose 133 mg/dL 74-106 high Not Available [address] [place], [address] 12/31/2023 14:24:03 12/31/19 24 12/31/2023 COMPR EHENS VIVIANA METAB OLIC PANEL BUN 13 mg/dL 7-18 normal Not Available [address] [place], [address] 12/31/2023 14:24:03 12/31/19 24 12/31/2023 COMPR EHENS VIVIANA METAB OLIC PANEL creatinine 0.6 mg/dL 0.55-1 .02 normal Not Available [address] [place], [address] 12/31/2023 14:24:03 12/31/19 24 12/31/2023 COMPR EHENS VIVIANA METAB OLIC PANEL estimated GFR 110.65 mL/min /1.73m 2 Not Available [address] [place], [address] 12/31/2023 14:24:03 12/31/19 24 12/31/2023 COMPR EHENS VIVIANA METAB OLIC PANEL total protein 7.1 g/dL 6.4-8. 2 normal Not Available [address] [place], [address] 12/31/2023 14:24:03 12/31/19 24 12/31/2023 COMPR EHENS VIVIANA METAB OLIC PANEL albumin 3.5 g/dL 3.4-5. 0 normal Not Available [address] [place], [address] 12/31/2023 14:24:03 12/31/19 24 12/31/2023 COMPR EHENS VIVIANA METAB OLIC PANEL bilirubin, total 0.4 mg/dL 0.2-1. 0 normal Not Available [address] [place], [address] 12/31/2023 14:24:03 12/31/19 24 12/31/2023 COMPR EHENS VIVIANA METAB OLIC PANEL alk phos 42 U/L 46-116 low Not Available [address] [place], [address] 12/31/2023 14:24:03 12/31/19 24 12/31/2023 COMPR EHENS VIVIANA METAB OLIC PANEL sodium 139 mmol/ L 136-14 5 normal Not Available [address] [place], [address] 12/31/2023 14:24:03 12/31/19 24 12/31/2023 COMPR EHENS VIVIANA METAB OLIC PANEL potassium 4.2 mmol/ L 3.5-5. 1 normal Not Available [address] [place], [address] 12/31/2023 14:24:03 12/31/19 24 12/31/2023 COMPR EHENS VIVIANA METAB OLIC PANEL chloride 101 mmol/ L 98-107 normal Not Available [address] [place], [address] 12/31/2023 14:24:03 12/31/19 24 12/31/2023 COMPR EHENS VIVIANA METAB OLIC PANEL CO2 27.0 mmol/ L 21.0-3 2.0 normal Not Available [address] [place], [address] 12/31/2023 14:24:03 12/31/19 24 12/31/2023 COMPR EHENS VIVIANA METAB OLIC PANEL anion gap 11.0 mmol/ L 3-11 normal Not Available [address] [place], [address] 12/31/2023 14:24:03 12/31/19 24 12/31/2023 COMPR EHENS VIVIANA METAB OLIC PANEL AST 21 U/L 15-37 normal Not Available [address] [place], [address] 12/31/2023 14:24:03 12/31/19 24 12/31/2023 COMPR EHENS VIVIANA METAB OLIC PANEL ALT 23 U/L 14-59 normal Not Available [address] [place], [address] 12/31/2023 14:24:03 12/31/19 24 12/31/2023 ETHYL ALCOH OL ethyl alcohol < 3.0 mg/dL <10 Not Available [address] [place], [address] 12/31/2023 14:24:04 12/31/19 24 12/31/2023 TSH (W/RE F FT4) TSH (w/ref FT4) 1.05 uIU/m L 0.36-3 .74 normal Not Available [address] [place], [address] 12/31/2023 14:24:04 12/31/19 24 12/31/2023 ACETA MINOP HEN acetaminophe n < 2 ug/mL 10-30 Not Available [address] [place], [address] 12/31/2023 14:28:02 12/31/19 24 12/31/2023 SALIC YLATE salicylate 3.0 mg/dL <2.8 Not Available [address] [place], [address] 12/31/2023 14:28:02 01/01/20 24 01/01/2024 URINA LYSIS color Yellow yellow Not Available [address] [place], [address] 01/01/2024 10:47:41 01/01/20 24 01/01/2024 URINA LYSIS clarity Clear clear Not Available Rebecca woodall [address] [place], [address] 01/01/2024 10:47:41 01/01/20 24 01/01/2024 URINA LYSIS specific gravity 1.015 1.005- 1.025 normal Not Available [address] [place], [address] 01/01/2024 10:47:41 01/01/20 24 01/01/2024 URINA LYSIS pH 6.5 5-8 normal Not Available Rebecca woodall [address] [place], [address] 01/01/2024 10:47:41 01/01/20 24 01/01/2024 URINA LYSIS leukocyte esterase Negati ve negati ve Not Available [address] [place], [address] 01/01/2024 10:47:41 01/01/20 24 01/01/2024 URINA LYSIS nitrite Negati ve negati ve Not Available [address] [place], [address] 01/01/2024 10:47:41 01/01/20 24 01/01/2024 URINA LYSIS protein Negati ve mg/dL negati ve Not Available [address] [place], [address] 01/01/2024 10:47:41 01/01/20 24 01/01/2024 URINA LYSIS glucose >=1000 mg/dL negati ve abnormal Not Available [address] [place], [address] 01/01/2024 10:47:41 01/01/20 24 01/01/2024 URINA LYSIS ketones Negati ve mg/dL negati ve Not Available [address] [place], [address] 01/01/2024 10:47:41 01/01/20 24 01/01/2024 URINA LYSIS urobilinogen 1.0 mg/dL up to 0.2 abnormal Not Available [address] [place], [address] 01/01/2024 10:47:41 01/01/20 24 01/01/2024 URINA LYSIS bilirubin Negati ve negati ve Not Available [address] [place], [address] 01/01/2024 10:47:41 01/01/20 24 01/01/2024 URINA LYSIS blood Negati ve negati ve Not Available [address] [place], [address] 01/01/2024 10:47:41 01/01/20 24 01/01/2024 URINE DRUG SCREE N ([facility] ) methadone Negati ve negati ve Not Available [address] [place], [address] 01/01/2024 11:04:44 01/01/20 24 01/01/2024 URINE DRUG SCREE N ([facility] ) benzodiazepi lucas Negati ve negati ve Not Available [address] [place], [address] 01/01/2024 11:04:44 01/01/20 24 01/01/2024 URINE DRUG SCREE N ([facility] ) cocaine Negati ve negati ve Not Available [address] [place], [address] 01/01/2024 11:04:44 01/01/20 24 01/01/2024 URINE DRUG SCREE N ([facility] ) amphetamines Negati ve negati ve Not Available [address] [place], [address] 01/01/2024 11:04:44 01/01/20 24 01/01/2024 URINE DRUG SCREE N ([facility] ) tetrahydroca nnabinol Negati ve negati ve Not Available [address] [place], [address] 01/01/2024 11:04:44 01/01/20 24 01/01/2024 URINE DRUG SCREE N ([facility] ) opiates Negati ve negati ve Not Available [address] [place], [address] 01/01/2024 11:04:44 01/01/20 24 01/01/2024 URINE DRUG SCREE N ([facility] ) barbiturates Negati ve negati ve Not Available [address] [place], [address] 01/01/2024 11:04:44 01/01/20 24 01/01/2024 URINE DRUG SCREE N ([facility] ) tricyclic antidepressa nts Negati ve negati ve Not Available [address] [place], [address] 01/01/2024 11:04:44 01/07/20 24 01/07/2024 COMPL ETE BLOOD COUNT W/DIF F WBC 8.49 10_3/ uL 4.4-10 .8 normal Not Available [address] [place], [address] 01/07/2024 14:15:32 01/07/20 24 01/07/2024 COMPL ETE BLOOD COUNT W/DIF F RBC 5.20 10_6/ uL 3.93-5 .22 normal Not Available [address] [place], [address] 01/07/2024 14:15:32 01/07/20 24 01/07/2024 COMPL ETE BLOOD COUNT W/DIF F HGB 15.6 g/dL 11.2-1 5.7 normal Not Available [address] [place], [address] 01/07/2024 14:15:32 01/07/20 24 01/07/2024 COMPL ETE BLOOD COUNT W/DIF F HCT 47.1 % 36.0-4 6.0 high Not Available [address] [place], [address] 01/07/2024 14:15:32 01/07/20 24 01/07/2024 COMPL ETE BLOOD COUNT W/DIF F MCV 91 fL 80-95 normal Not Available [address] [place], [address] 01/07/2024 14:15:32 01/07/20 24 01/07/2024 COMPL ETE BLOOD COUNT W/DIF F MCH 30.0 pg 27.0-3 3.0 normal Not Available [address] [place], [address] 01/07/2024 14:15:32 01/07/20 24 01/07/2024 COMPL ETE BLOOD COUNT W/DIF F MCHC 33.1 % 32.0-3 6.0 normal Not Available [address] [place], [address] 01/07/2024 14:15:32 01/07/20 24 01/07/2024 COMPL ETE BLOOD COUNT W/DIF F RDW 13.2 % 11.7-1 4.6 normal Not Available [address] [place], [address] 01/07/2024 14:15:32 01/07/20 24 01/07/2024 COMPL ETE BLOOD COUNT W/DIF F platelet count 251 10_3/ uL 130-40 0 normal Not Available [address] [place], [address] 01/07/2024 14:15:32 01/07/20 24 01/07/2024 COMPL ETE BLOOD COUNT W/DIF F MPV 10.4 fL 8.0-11 .0 normal Not Available [address] [place], [address] 01/07/2024 14:15:32 01/07/20 24 01/07/2024 COMPL ETE BLOOD COUNT W/DIF F neutrophils % 47.4 Not Available [address] [place], [address] 01/07/2024 14:15:32 01/07/20 24 01/07/2024 COMPL ETE BLOOD COUNT W/DIF F lymphocytes % 43.5 Not Available [address] [place], [address] 01/07/2024 14:15:32 01/07/20 24 01/07/2024 COMPL ETE BLOOD COUNT W/DIF F monocytes % 5.5 Not Available Mario [email or web address] [place], [address] 01/07/2024 14:15:32 01/07/20 24 01/07/2024 COMPL ETE BLOOD COUNT W/DIF F eosinophils % 2.7 Not Available [address] [place], [address] 01/07/2024 14:15:32 01/07/20 24 01/07/2024 COMPL ETE BLOOD COUNT W/DIF F basophils % 0.8 Not Available Mario [email or web address] [address] [place], [address] 01/07/2024 14:15:32 01/07/20 24 01/07/2024 COMPL ETE BLOOD COUNT W/DIF F immature grans % 0.1 Not Available [address] [place], [address] 01/07/2024 14:15:32 01/07/20 24 01/07/2024 COMPL ETE BLOOD COUNT W/DIF F nucleated RBC 0.0 % 0.0-0. 3 normal Not Available [address] [place], [address] 01/07/2024 14:15:32 01/07/20 24 01/07/2024 COMPL ETE BLOOD COUNT W/DIF F absolute neutrophil count 4.02 10_3/ uL 1.2-6. 7 normal Not Available [address] [place], [address] 01/07/2024 14:15:32 01/07/20 24 01/07/2024 COMPL ETE BLOOD COUNT W/DIF F absolute lymphocyte count 3.69 10_3/ uL 1.2-3. 4 high Not Available [address] [place], [address] 01/07/2024 14:15:32 01/07/20 24 01/07/2024 COMPL ETE BLOOD COUNT W/DIF F absolute monocyte count 0.47 10_3/ uL 0.1-0. 8 normal Not Available [address] [place], [address] 01/07/2024 14:15:32 01/07/20 24 01/07/2024 COMPL ETE BLOOD COUNT W/DIF F absolute eosinophil count 0.23 10_3/ uL 0.0-0. 7 normal Not Available [address] [place], [address] 01/07/2024 14:15:32 01/07/20 24 01/07/2024 COMPL ETE BLOOD COUNT W/DIF F absolute basophil count 0.07 10_3/ uL 0.0-0. 2 normal Not Available [address] [place], [address] 01/07/2024 14:15:32 01/07/20 24 01/07/2024 ACETA MINOP HEN acetaminophe n < 2 ug/mL 10-30 Not Available [address] [place], [address] 01/07/2024 14:34:33 01/07/20 24 01/07/2024 SALIC YLATE salicylate < 2.8 mg/dL <2.8 Not Available [address] [place], [address] 01/07/2024 14:34:34 01/07/20 24 01/07/2024 URINA LYSIS color Dark Yellow yellow Not Available [address] [place], [address] 01/07/2024 14:35:36 01/07/20 24 01/07/2024 URINA LYSIS clarity Clear clear Not Available [facility] [address] [place], [address] 01/07/2024 14:35:36 01/07/20 24 01/07/2024 URINA LYSIS specific gravity >= 1.030 1.005- 1.025 high Not Available [address] [place], [address] 01/07/2024 14:35:36 01/07/20 24 01/07/2024 URINA LYSIS pH 5.5 5-8 normal Not Available [facility] [address] [place], [address] 01/07/2024 14:35:36 01/07/20 24 01/07/2024 URINA LYSIS leukocyte esterase Negati ve negati ve Not Available [address] [place], [address] 01/07/2024 14:35:36 01/07/20 24 01/07/2024 URINA LYSIS nitrite Negati ve negati ve Not Available [address] [place], [address] 01/07/2024 14:35:36 01/07/20 24 01/07/2024 URINA LYSIS protein 30 mg/dL neg-tr mario abnormal Not Available [address] [place], [address] 01/07/2024 14:35:36 01/07/20 24 01/07/2024 URINA LYSIS glucose 500 mg/dL negati ve abnormal Not Available [address] [place], [address] 01/07/2024 14:35:36 01/07/20 24 01/07/2024 URINA LYSIS ketones 15 mg/dL negati ve abnormal Not Available [address] [place], [address] 01/07/2024 14:35:36 01/07/20 24 01/07/2024 URINA LYSIS urobilinogen 1.0 mg/dL up to 0.2 abnormal Not Available [address] [place], [address] 01/07/2024 14:35:36 01/07/20 24 01/07/2024 URINA LYSIS bilirubin Small negati ve abnormal Not Available [address] [place], [address] 01/07/2024 14:35:36 01/07/20 24 01/07/2024 URINA LYSIS blood Negati ve negati ve Not Available [address] [place], [address] 01/07/2024 14:35:36 01/07/20 24 01/07/2024 COMPR EHENS VIVIANA METAB OLIC PANEL calcium 9.3 mg/dL 8.5-10 .1 normal Not Available [address] [place], [address] 01/07/2024 14:40:36 01/07/20 24 01/07/2024 COMPR EHENS VIVIANA METAB OLIC PANEL glucose 114 mg/dL 74-106 high Not Available Rebecca woodall [address] [place], [address] 01/07/2024 14:40:36 01/07/20 24 01/07/2024 COMPR EHENS VIVIANA METAB OLIC PANEL BUN 12 mg/dL 7-18 normal Not Available [address] [place], [address] 01/07/2024 14:40:36 01/07/20 24 01/07/2024 COMPR EHENS VIVIANA METAB OLIC PANEL creatinine 0.8 mg/dL 0.55-1 .02 normal Not Available [address] [place], [address] 01/07/2024 14:40:36 01/07/20 24 01/07/2024 COMPR EHENS VIVIANA METAB OLIC PANEL estimated GFR 90.83 mL/min /1.73m 2 Not Available [address] [place], [address] 01/07/2024 14:40:36 01/07/20 24 01/07/2024 COMPR EHENS VIVIANA METAB OLIC PANEL total protein 7.6 g/dL 6.4-8. 2 normal Not Available [address] [place], [address] 01/07/2024 14:40:36 01/07/20 24 01/07/2024 COMPR EHENS VIVIANA METAB OLIC PANEL albumin 4.0 g/dL 3.4-5. 0 normal Not Available [address] [place], [address] 01/07/2024 14:40:36 01/07/20 24 01/07/2024 COMPR EHENS VIVIANA METAB OLIC PANEL bilirubin, total 0.6 mg/dL 0.2-1. 0 normal Not Available [address] [place], [address] 01/07/2024 14:40:36 01/07/20 24 01/07/2024 COMPR EHENS VIVIANA METAB OLIC PANEL alk phos 52 U/L 46-116 normal Not Available [address] [place], [address] 01/07/2024 14:40:36 01/07/20 24 01/07/2024 COMPR EHENS VIVIANA METAB OLIC PANEL sodium 142 mmol/ L 136-14 5 normal Not Available [address] [place], [address] 01/07/2024 14:40:36 01/07/20 24 01/07/2024 COMPR EHENS VIVIANA METAB OLIC PANEL potassium 3.9 mmol/ L 3.5-5. 1 normal Not Available [address] [place], [address] 01/07/2024 14:40:36 01/07/20 24 01/07/2024 COMPR EHENS VIVIANA METAB OLIC PANEL chloride 103 mmol/ L 98-107 normal Not Available [address] [place], [address] 01/07/2024 14:40:36 01/07/20 24 01/07/2024 COMPR EHENS VIVIANA METAB OLIC PANEL CO2 28.6 mmol/ L 21.0-3 2.0 normal Not Available [address] [place], [address] 01/07/2024 14:40:36 01/07/20 24 01/07/2024 COMPR EHENS VIVIANA METAB OLIC PANEL anion gap 10.4 mmol/ L 3-11 normal Not Available [address] [place], [address] 01/07/2024 14:40:36 01/07/20 24 01/07/2024 COMPR EHENS VIVIANA METAB OLIC PANEL AST 18 U/L 15-37 normal Not Available [address] [place], [address] 01/07/2024 14:40:36 01/07/20 24 01/07/2024 COMPR EHENS VIVIANA METAB OLIC PANEL ALT 28 U/L 14-59 normal Not Available [address] [place], [address] 01/07/2024 14:40:36 01/07/20 24 01/07/2024 ETHYL ALCOH OL ethyl alcohol < 3.0 mg/dL <10 Not Available [address] [place], [address] 01/07/2024 14:40:36 01/07/20 24 01/07/2024 TSH (W/RE F FT4) TSH (w/ref FT4) 1.76 uIU/m L 0.36-3 .74 normal Not Available [address] [place], [address] 01/07/2024 14:40:37 01/07/20 24 01/07/2024 URINA LYSIS color Dark Yellow yellow Not Available [address] [place], [address] 01/07/2024 14:40:39 01/07/20 24 01/07/2024 URINA LYSIS clarity Clear clear Not Available Rebecca woodall [address] [place], [address] 01/07/2024 14:40:39 01/07/20 24 01/07/2024 URINA LYSIS specific gravity >= 1.030 1.005- 1.025 high Not Available [address] [place], [address] 01/07/2024 14:40:39 01/07/20 24 01/07/2024 URINA LYSIS pH 5.5 5-8 normal Not Available Rebecca woodall [address] [place], [address] 01/07/2024 14:40:39 01/07/20 24 01/07/2024 URINA LYSIS leukocyte esterase Negati ve negati ve Not Available [address] [place], [address] 01/07/2024 14:40:39 01/07/20 24 01/07/2024 URINA LYSIS nitrite Negati ve negati ve Not Available [address] [place], [address] 01/07/2024 14:40:39 01/07/20 24 01/07/2024 URINA LYSIS protein 30 mg/dL neg-tr mario abnormal Not Available [address] [place], [address] 01/07/2024 14:40:39 01/07/20 24 01/07/2024 URINA LYSIS glucose 500 mg/dL negati ve abnormal Not Available [address] [place], [address] 01/07/2024 14:40:39 01/07/20 24 01/07/2024 URINA LYSIS ketones 15 mg/dL negati ve abnormal Not Available [address] [place], [address] 01/07/2024 14:40:39 01/07/20 24 01/07/2024 URINA LYSIS urobilinogen 1.0 mg/dL up to 0.2 abnormal Not Available [address] [place], [address] 01/07/2024 14:40:39 01/07/20 24 01/07/2024 URINA LYSIS bilirubin Small negati ve abnormal Not Available [address] [place], [address] 01/07/2024 14:40:39 01/07/20 24 01/07/2024 URINA LYSIS blood Negati ve negati ve Not Available [address] [place], [address] 01/07/2024 14:40:39 01/07/20 24 01/07/2024 MICRO SCOPI C FINDI NGS WBC Negati ve hpf 0-5 Not Available [address] [place], [address] 01/07/2024 14:40:40 01/07/20 24 01/07/2024 MICRO SCOPI C FINDI NGS RBC Negati ve hpf 0-2 Not Available [address] [place], [address] 01/07/2024 14:40:40 01/07/20 24 01/07/2024 MICRO SCOPI C FINDI NGS epithelial cells Modera te hpf negati ve Not Available [address] [place], [address] 01/07/2024 14:40:40 01/07/20 24 01/07/2024 MICRO SCOPI C FINDI NGS bacteria Rare hpf negati ve Not Available [address] [place], [address] 01/07/2024 14:40:40 01/07/20 24 01/07/2024 MICRO SCOPI C FINDI NGS crystals Negati ve hpf negati ve Not Available [address] [place], [address] 01/07/2024 14:40:40 01/07/20 24 01/07/2024 MICRO SCOPI C FINDI NGS mucus Modera te negati ve Not Available [address] [place], [address] 01/07/2024 14:40:40 01/07/20 24 01/07/2024 MICRO SCOPI C FINDI NGS casts 10-20 Hyalin e lpf negati ve Not Available [address] [place], [address] 01/07/2024 14:40:40 01/07/20 24 01/07/2024 MICRO SCOPI C FINDI NGS C S indicated? No Not Available [address] [place], [address] 01/07/2024 14:40:40 01/07/20 24 01/07/2024 URINE DRUG SCREE N ([facility] ) methadone Negati ve negati ve Not Available [address] [place], [address] 01/07/2024 17:32:01 01/07/20 24 01/07/2024 URINE DRUG SCREE N ([facility] ) benzodiazepi lucas Positi ve negati ve abnormal Not Available [address] [place], [address] 01/07/2024 17:32:01 01/07/20 24 01/07/2024 URINE DRUG SCREE N ([facility] ) cocaine Negati ve negati ve Not Available [address] [place], [address] 01/07/2024 17:32:01 01/07/20 24 01/07/2024 URINE DRUG SCREE N ([facility] ) amphetamines Negati ve negati ve Not Available [address] [place], [address] 01/07/2024 17:32:01 01/07/20 24 01/07/2024 URINE DRUG SCREE N ([facility] ) tetrahydroca nnabinol Negati ve negati ve Not Available [address] [place], [address] 01/07/2024 17:32:01 01/07/20 24 01/07/2024 URINE DRUG SCREE N ([facility] ) opiates Positi ve negati ve abnormal Not Available [address] [place], [address] 01/07/2024 17:32:01 01/07/20 24 01/07/2024 URINE DRUG SCREE N ([facility] ) barbiturates Negati ve negati ve Not Available [address] [place], [address] 01/07/2024 17:32:01 01/07/20 24 01/07/2024 URINE DRUG SCREE N ([facility] ) tricyclic antidepressa nts Negati ve negati ve Not Available [address] [place], [address] 01/07/2024 17:32:01 01/27/20 24 01/27/2024 HEMOG LOBIN A1C hemoglobin A1C 5.6 % <5.7 Not Available [address] [place], [address], 01/27/2024 19:56:56 05/27/20 24 05/27/2024 MICRO ALBUM IN microalbumin 2.3 mg/L 1.30-2 0.0 normal Not Available [address] [place], [address] 05/27/2024 19:11:01 05/27/20 24 05/27/2024 MICRO ALBUM IN creatinine urine 83.09 mg/dL Not Available [address] [place], [address] 05/27/2024 19:11:01 05/27/20 24 05/27/2024 MICRO ALBUM IN microalb ug/mg crea 2.8 ug/mg _cr Not Available [address] [place], [address] 05/27/2024 19:11:01 05/27/20 24 05/27/2024 drug scree n, urine Amphetamines : negati ve Not Available [facility] [address], [place], [address], 05/27/2024 14:50:14 05/27/20 24 05/27/2024 drug scree n, urine Barbiturates : negati ve Not Available [facility] [address], [place], [address], 05/27/2024 14:50:14 05/27/20 24 05/27/2024 drug scree n, urine BUP: negati ve Not Available [facility] [address], [place], [address], 05/27/2024 14:50:14 05/27/20 24 05/27/2024 drug scree n, urine Benzodiazepi lucas: negati ve Not Available [facility] [address], [place], [address], 05/27/2024 14:50:14 05/27/20 24 05/27/2024 drug scree n, urine Cocaine: negati ve Not Available [facility] [address], [place], [address], 05/27/2024 14:50:14 05/27/20 24 05/27/2024 drug scree n, urine EDDP (Methadone Metabolite) negati ve Not Available [facility] [address], [place], [address], 05/27/2024 14:50:14 05/27/20 24 05/27/2024 drug scree n, urine (MET) Methamphetam ine: negati ve Not Available [facility] [address], [place], [address], 05/27/2024 14:50:14 05/27/20 24 05/27/2024 drug scree n, urine MDMA: negati ve Not Available [facility] [address], [place], [address], 05/27/2024 14:50:14 05/27/20 24 05/27/2024 drug scree n, urine MTD (Methadone): negati ve Not Available [facility] [address], [place], [address], 05/27/2024 14:50:14 05/27/20 24 05/27/2024 drug scree n, urine [id number] (Opiate): positi ve Not Available [facility] [address], [place], [address], 05/27/2024 14:50:14 05/27/20 24 05/27/2024 drug scree n, urine OXY (Oxycodone): negati ve Not Available [facility] [address], [place], [address], 05/27/2024 14:50:14 05/27/20 24 05/27/2024 drug scree n, urine TCA: negati ve Not Available [facility] [address], [place], [address], 05/27/2024 14:50:14 05/27/20 24 05/27/2024 drug scree n, urine THC: negati ve Not Available [facility] [address], [place], [address], 05/27/2024 14:50:14 05/27/20 24 05/27/2024 drug scree n, urine Temperature: wnl Not Available [facility] [address], [place], [address], 05/27/2024 14:50:14 05/27/20 24 05/27/2024 hemog lobin A1C, finge rstic k hemoglobin A1C 5.4 % <5.7 Not Available [facility] [address], [place], [address], 05/27/2024 14:46:09 12/31/19 24 12/31/2023 komal mack h crischai s note Mental Health Crisis Note ELISABETH Olmedo NAME: Naya Andrea UNIT #: [id number] ADMITT ING PROVID ER: Azalea Ritchie ACCOUN T #: [id number] 15 90 PRIMAR Y CARE PROVID ER: [...] Mental Health Emerge ncy Note Releas e [facility] releas e signed :: No Reason for Visit SI, recent attemp t 12/30/23 , depres gladis In the last 2 weeks has the pt ady pond for ES prior to today? : Yes, ady pond at [facility] Client Inform ation Client is: New Well Housed : Yes Liz olmedo Treatm ent Team if applic able First care telesales team leader : Name: Stefania Grace Role: Privat e Therap ist Contac t Info: Non Suicid al Self Injury Curren t: Yes, Report ed scratc evgeny and [...] ed recent attemp t via hangin g 12/30/19, attemp t Octobe r 2022 via OD, attemp t 2010 via OD per report from client . and to others . Intent : No Plan: no, does not have a plan. Histor y of becomi ng violen t with anothe r person (any age): no histor y of violen ce with others . Risk: Does risk to harm exist? : yes. Access to means: No. Risk: High Risk (Risk to harm self; Access to means in home, report ed resear walt ways to harm self one identi fied as jumpin g out of 3rd story window , recent attemp t via hangin g on 12/30/23 ) Duty to warn indica [...] Unrema rkable Percep tion: Not impair ed Hutchins ation: Fully orient ated Memory : Intact [...] 48 year old female presen ting to [facility] office for Mobile crisis assess ment. Client [...] of social suppor t, identi fying ex husban d [facility] k as suppor t, I reache d out [...] t daught er whom strugg les with [place] which also increa ses feelin gs of [...] volunt verona treatm ent. Client will be arrrodneyi ng to [facility] and joanna bruce in ED, pendin g medica l cleara nce and volunt verona placem ent. Due to severi ty in depres gladis, SI, recent attemp t and a inabil ity to contra ct for safety it is this [facility] al recomm endati on that if client is to change mind on volunt verona status a EE should be strong ly consid ered. Plan/D isposi tion Recomm ended Dispos ition: Hospit alizat ion (Inpat ient volunt verona admiss ion, referr al sent to , [facility], [facility], ) facili ties contac salty. Plan: Referr al for volunt verona placem ent, EE should be strong ly consid ered if client it so change their mind. Referr ed to , [facility], [facility] and Facili ties contac salty if Applic able BENNY JUAN (refer ral submit salty) Accept ed, Pendin g review . Inform ation Sent to Benny juan: Referr peri [facility] (Refer ral submit salty, pendin g review ) Accept ed, Pendin g review . Inform ation Sent to [facility] [place]: Referr peri [facility] (Refer ral submit salty ) Accept edLesa g review . Inform ation Sent to [facility]: [facility] (Refer wendy submit salty ) Accept edLesa review . Inform ation Sent to Jordyn : Referr peri Report s/comm unicat ion Outcom e discus sed with: ED/Per sonnel and Other ([facility] clinic al Direct or Angel Garner, Macario Suppor t Specal ist [facility]) cc: ------ ------ ------ ------ ------ ------ ------ ------ ------ ------ ------ --- Dictat ed by: Azalea Ritchie Dictat ed: Time: 1340 Date: 1407 Date: Date: Transc ribed Date: Transc ribed Time: 1340 By: CONCHITA This is privil eged, confid ential inform ation, intend ed only for the provid er named. Any use or distri bution by any person other than this provid er is strict ly prohib ited. If you receiv e this report in error, please notify us immedi russly at [phone] and return the origin al report to us at the addres s above. Thank you. [facility] [address], [address] 12/31/2023 17:21:42 12/31/19 24 12/31/2023 ED visit note ED Visit Note ELISABETH T NAME: Naya Andrea UNIT #: [id number] ADMITT ING PROVID ER: Wanda Ricardo M.D. T #: [id number] PRIMAR Y CARE PROVID ER: MANISHA ELLIS MD DATE OF ADMIT: : 1974 HPI Genera l Mode of arriva l: ambula tory . Date/T renan Provid er Initia salty Docume ntatio n: 02/08/ 24 13:00 . Limita tions to Docume ntatio n: no limita tions . Inform ation obtain ed by: elisabeth olmedo . Histor y of Ady Serrano s 48 year old F ady ts to the emerge ncy depart ment with the chief compla int of lili griffith, descri bed as modera te, Elisabeth olmedo starte d experi encing this month( s) (1) and it has been consta nt. No reliev ing factor s improv e sympto m(s), No exacer bating factor s report ed . Elisabeth olmedo notes denies chest pain, fever/ chills and shortn ess of breath . 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 Thank you. [facility] [address], [place], [address] 12/31/2023 17:21:41 12/31/19 24 12/31/2023 care manag ement safet y plan Care Manage ment Safety Plan ELISABETH T NAME: Naya Andrea UNIT #: [id number] ADMITT ING PROVID ER: Chemo Louis ACCOUN T #: [id number] 90 PRIMAR Y CARE PROVID ER: MANISHA ELLIS MD DATE OF ADMIT: : 1974 Date of servic e: Time of Servic e: 19:21 Care Manage ment Safety Plan Status Status : Volunt verona Reason for Wait Reason for Wait: Inpati ent Admiss ion Safety Plan Safety Plan: Per report , Jammie is volunt verona, awaiti ng admiss ion for inpati ent psychi atric stabil izatio n. She report ed that she attemp salty to end her life by valente yee yester day, but was unsucc essful . She was screen ed by [facility] at their [facility] ury office , and due to her acuity , she was jimena t to [facility] for inpati ent admiss ion. Referr als were placed with all facili ties in [place], and are pendin g review . CM will contin ue to follow . [place] FOR INPATI ENT PSYCHI ATRIC STABIL IZATIO N.??? Elisabeth olmedo is approp riate in all intera ctions since arrivi ng at [facility]; Pt has demons trated approp riate coping and commun icatio n skills , has articu lated his or her needs and concer ns and is fully engage d during staff intera ctions . 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 3. May have paper cups, plates , finger foods as well as a cardbo tesfaye spoon with which to eat meals. 4. Follow [facility] Manage ment [facility] Behavi oral Health Patien t policy [...] restri ction. 10. Phone: limite d to [facility] nenita ss phone at RN discre tion. Due to VOLUNT VERONA status , if elisabeth olmedo wishes to leave [facility], staff will contac t [facility] Crisis Screen er ([phone]) and On-Karin l Care Manage r ([phone]) as soon as possib le. In the event of elopem ent, notify Adiel olmedo [employer] ([phone]). Elisabeth olmedo is liz quachy reema arily at [facility] and [facility] admiss ion when a bed become s availa ble. [facility] Frontl ine Data Center Technician will contin ue arun yee placegonzalez ent. Please contac t the Order Picker/Assembler Care Manage r ([phone]) and [facility] Data Center Technician ([phone]) for any needed change s in the Safety Plan. Safety plan has been provid ed to [facility] ental care team. cc: ------ ------ ------ [...] at the addres s above. Thank you. [facility] [address], [place], [address] 01/01/2024 12:01:18 01/01/20 24 01/01/2024 ED progr ess note ED Progre ss Note ELISABETH Olmedo NAME: Naya Andrea UNIT #: [id number] ADMITT ING PROVID ER: Shelli Pratt M.D. ACCOUN T #: [id number] PRIMAR Y CARE PROVID ER: MANISHA ELLIS MD DATE OF ADMIT: : 1974 Date of servic e: Time of Servic e: 13:15 Medica l Decisi on Making Patien t restin g active ly no acute distre ss. Patien t has been accept ed by Dr. Tellez at [facility] for inpati ent treatm ent. Physic ketan [...] t Specif ic Psychi atric Facili ty: [facility] Medica l-Psyc hiatri c Unit [...] naloxo ne [Narca n] 4 mg/act uation Bryan, Non-Ae rosol 1 spray INTRAN NEELA ONCE [...] 1 TABLET BY MOUTH EVERY DAY cc: RHONDA GROVER, MANISHA ------ ------ ------ ------ ------ [...] at the addres s above. Thank you. [address] [place], [address] 01/01/2024 14:32:57 01/01/20 24 01/01/2024 care manag ement progr ess note Care Manage ment Progre ss Note ELISABETH Olmedo NAME: Naya Andrea UNIT #: [id number] ADMITT ING PROVID ER: Melany Tobias ACCOUN T #: [id number] PRIMAR Y CARE PROVID ER: MANISHA ELLIS MD DATE OF ADMIT: : 1974 Date of servic e: Time of Servic e: 15:41 Care Manage ment Progre ss Note Progre ss Note Text Progre ss Note Text: Jammie was transf erred to [facility] via [facility] for volunt verona psychi atric admiss ion. SDOH(C are Manage ment) Screen ing Will the Elisabeth olmedo Partic ipate in the Screen ing?: Unable to obtain cc: ------ ------ ------ ------ ------ ------ ------ ------ ------ ------ ------ --- Dictat ed by: Melany Tobias Dictat ed: Time: 1541 Date: 1542 Date: Date: Transc ribed Date: Transc ribed Time: 154 By: JIMBO This is privil eged, confid ential inform ation, intend ed only for the provid er named. Any use or distri bution by any person other than this provid er is strict ly prohib ited. If you receiv e this report in error, please notify us immedi ately at [phone] and return the origin al report to us at the addres s above. Thank you. [address] [place], [address] 01/01/2024 16:24:41 01/07/20 24 01/07/2024 komal marques note Mental Health Crisis Note ELISABETH Olmedo NAME: Naya Andrea UNIT #: [id number] ADMITT ING PROVID ER: Gabriela tijerinaShireen faustino ACCOUN T #: [id number] PRIMAR Y CARE PROVID ER: MANISHA ELLIS [...] day Total score: 25 Source : Facundo frye by Drs. Russell pulido, Jennifer Seay ms, Jaydon power and mikki staton, with an educat ional amadeo from [employer]. Suicid e Severi ty Rate CSSRS Have [...] to today? : Yes, ady pond at [facility] ED Non Suicid al Self Injury Curren [...] Unrema rkable Percep tion: Not impair ed Hutchins ation: Fully orient ated Memory : Intact Insigh t: Good Judgem ent: Good Neurov egetat viviana Sympto ms Sleep: Increa se Appeti tie: Decrea se Intere sts: Decrea se Energy : Decrea se Libido : Not applic able Substa nce Use: Have you used substa nces in the last 7 days?: No Impres gladis Client report ed to this comic book writer that she has recent ly left [facility]. Client believ ed that she receiv ed all the servic es and suppor t that she needed to be safe in her day to day. Client releas ed from [facility] and began to strugg le again with her mental health . Client report ed that she is experi encing an increa se in her SI and is 'scare d' of her though ts. Client report ed plans, intent , and access to this comic book writer . Client report ed the plans of rachid yee off her buildi ng's roof, rachid yee off [place] [address] , drive her [...] friend s. Client appear ed to this comic book writer as depres sed. Client report ed to this comic book writer that she regret shelli yee [facility] so soon, and needs furthe r suppor t offere d in a inpati ent facili ty. Client scored a 25/27 on the PHQ-9 and answer ed yes to all the CSSRS questi ons. Client was izaiah ative during the assess ment proces s and answer ed all this comic book writer s??? questi ons. Plan/D isposi tion Recomm ended Dispos ition: Hospit alijocyt stephane No. Plan: Client will remain at [facility] ED in Zone B until placem ent is found for her curren t persis tent SI. Client will need daily reasse ssment s until placem ent is found. Report s/comm unicat ion Outcom e discus sed with: ED/Isiah jones cc: ------ ------ ------ ------ ------ ------ ------ ------ ------ ------ ------ --- Dictat ed by: Shireen Patino Dictat ed: Time: Date: 162 Date: Date: Transc ribed Date: Transc ribed [...] at the addres s above. Thank you. [facility] [address], [place], [address] 01/08/2024 11:00:44 01/07/2001/07/2024 ED visit note ED Visit Note ELISABETH Olmedo NAME: Naya Andrea UNIT #: [id number] ADMITT ING PROVID ER: Cisco French M.D. ACCOUN T #: [id number] PRIMAR Y CARE PROVID ER: MANISHA ELLIS MD DATE OF ADMIT: : 1974 HPI Genera l Mode of arriva l: ambula tory . Date/T renan Provid er Initia salty Docume ntatio n: 13:26 . Limita tions to Docume ntatio n: no limita tions . Inform ation obtain ed by: elisabeth olmedo . HPI Narrat viviana: 48-yea r-old female with histor y of depres gladis presen ts volunt arily for suicid al ideati on. Elisabeth olmedo was seen here and evalua salty for suicid al ideati on on 12/31/19. She was transf erred to [facility] for ongoin g psychi atric treatm ent. She notes the care she was receiv ing at [facility] was excell ent but that she had to leave given concer ns about her daught er's wellbe ing. Her daught er suffer s from psychi atric illnes s hersel f and the elisabeth olmedo felt that she was in need while she was away. Elisabeth honorio states that since she left the hospit al she has had contin ued depres gladis and recent ly had though ts of jumpin g off of her roof or slitti ng her wrist. 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 Elisabeth olmedo is reques ting to be transf erred back to [facility] if possib le but unders tands that if this is not possib le she is kirt g to receiv e treatm ent at [facility]. Elisabeth olmedo does have comple x medica l [...] subcut QWEEK subcut aneous pen inject or ([facility]) hydroc ortiso ne 2.5 % topica [...] pain Exam Const Genera l: izaiah ative Hutchins ation: alert and awake HENMT Mouth: moist [...] Vital Signs Temper ature 36.4 C L 12:59 Pulse 112 H 12:59 Respir atory [...] arily reques ting inpati ent treatm ent. Patien t is tachyc ardic which I suspec t is second verona to her anxiet y. Diagno stic labs sent as part of medica l screen ing. -- Medica l screen ing exam was perfor med and no acute medica l condit ion was identi fied. Elisabeth olmedo seen by crisis screen er and plan will be for inpati ent psychi atric treatm ent. Lab Data Lab result s review ed: Yes I review ed the elisabeth olmedo's lab result s. 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 Any use or distri bution by any person other than this provid er is strict ly prohib ited. If you receiv e this report in error, please notify us immedi russly at [phone] and return the origin al report to us at the addres s above. Thank you. [facility] [address] [place], [address] 01/08/2024 11:00:43 01/08/20 24 01/07/2024 ED progr ess note ED Progre ss Note PATISTEPHANIE T NAME: Edgardo alexNaya UNIT #: [id number] ADMITT ING PROVID ER: Andie Mcintyre M.D. ACCOUN T #: [id number] PRIMAR Y CARE PROVID ER: MANISHA ELLIS MD DATE OF ADMIT: : 1974 Date of servic e: Time of Servic e: 23:20 Medica l Roman on Making This patien t was signed out to me. Please see previo us notes for H P and initia l eval. In brief, 48yo F presen ts volunt arily with SI. Medica lly cleare d, [facility] recc volunt verona inpati ent placem ent. Signed out awaiti ng place ent. Overni ght appear ed to [...] to contin [facility] be [facility]i f[facility]. Psychi atric consul t pendin g. Elisabeth olmedo is bringi ng in her home medica tions that we do not have these in pharma [facility]. Other home medica tions have been ordere d. Last update d by Cisco French MD at 17:16 Sign Out Commen t: deprminna griffith, SI, awaiti ng [facility] ent Last update d by Shelli Pratt [...] naloxo ne [Narca n] 4 mg/act uation Bryan, Non-Ae rosol 1 spray INTRAN NEELA ONCE [...] at the addres s above. Thank you. [facility] [address], [place], [address] 01/08/2024 11:00:44 01/08/20 24 01/08/2024 ED progr ess note ED Progre ss Note ELISABETH Olmedo NAME: Naya Andrea UNIT #: [id number] ADMITT ING PROVID ER: Wanda Ricardo M.D. ACCOUN T #: [id number] PRIMAR Y CARE PROVID ER: RHONDA GROVER, MANISHA DATE OF ADMIT: : 1974 [...] identi fied. Psychi atric consul t pendkristofer jaclyn olmedo is bringi ng in her home medica tions that we do not have these in pharma [facility]. Other home medica tions have been ordere dNing Last update d by Cisco French MD at 17:16 Sign Out Commen t: depres gladis, SI, awaiti ng placem ent Last update d by Shelli Pratt MD at 22:49 Sign Out Commen t: 48yo F, SI, medica lly cleare d, home meds in, pendin g volunt verona place ent. Last update d by Andie Mcintyre [...] mg tablet 5 mg PO DAILY Pati t ts: Take 1 tablet by mouth once a day hydrom orphon e 2 mg tablet 4 mg PO BID Patien t ts: TAKE TWO TABLET S BY MOUTH TWICE A DAY Entres to 97-103 mg tablet 1 tab PO BID Hold Instru ctions : Hold until PCP f/u or if SBP is consis tently > 120 mmHg Pati t ts: TAKE ONE TABLET BY MOUTH TWICE A DAY pregab deonna 100 mg capsul e 100 mg PO TID Pati t ts: Take 1 capsul e by [...] naloxo ne [Narca n] 4 mg/act uation Bryan, Non-Ae rosol 1 spray INTRAN NEELA ONCE [...] 100 mg tablet 150 mg PO HS Elisabeth olmedo Commen ts: TAKE 1 TABLET BY MOUTH EVERY DAY buprop ion HCl 150 mg tablet extend ed releas e 24 hr 150 mg PO BID Elisabeth olmedo Commstephanie ts: TAKE ONE TABLET BY MOUTH TWICE A DAY WITH MEALS cc: MANISHA ELLIS MD ------ ------ ------ ------ ------ ------ ------ ------ ------ ------ ------ --- Dictat ed by: WANDA RICARDO MD Dictat ed: Time: 070 9 Date: 708 [...] error, please notify us immedi russly at [phone] and return the origin al report to us at the addres s above. Thank you. [facility] [address] [place], [address] 01/08/2024 11:00:45 01/08/20 24 01/08/2024 ED progr ess note ED Progre ss Note ELISABETH T NAME: Naya Andrea UNIT #: [id number] ADMITT ING PROVID ER: Prudencio Babcock M.D. ACCOUN T #: [id number] PRIMAR Y CARE PROVID ER: MANISHA ELLIS MD DATE OF ADMIT: : 1974 Date of servic e: Time of Servic e: 16:49 Medica efrain Owens on Making I receiv ed signou t on this 48-yea r-old female in the emerge ncy depart ment in settin g of suicid al ideati on. She is medica lly cleare d. She is volunt verona. No active behavi oral issues /shift . Will update docume elenitio po as [facility] and sign patien t out to the oncomi ng overni ght provid er. 8:04 PM Elisabeth olmedo had severa l episod es of [...] fied. Psychi atric consul t pendin g. Elisabeth olmedo is bringi ng in her home [...] Provid er: Manisha Ellis ED Provid er: Burak t,Prudencio Taylor Meds and New Rx's Prescr iption s: [...] naloxo ne [Narca n] 4 mg/act uation Bryan, Non-Ae rosol 1 spray INTRAN NEELA ONCE [...] MOUTH TWICE A DAY WITH MEALS cc: RHONDA GROVER, MANISHA ------ ------ ------ ------ ------ [...] at the addres s above. Thank you. [facility] [address], [place], [address] 01/09/2024 17:04:48 01/08/20 24 01/08/2024 ED progr ess note ED Progre ss Note PATIEN T NAME: Naya Andrea UNIT #: [id number] ADMITT ING PROVID ER: Wanda Ricardo M.D. ACCOUN T #: [id number] PRIMAR Y CARE PROVID ER: MANISHA [...] Metz no, please see my docume magali n regard [...] Sign Out Commen t: lili griffith, SI, awaiti ng placem ent Last update [...] naloxo ne [Narca n] 4 mg/act uation Bryan, Non-Ae rosol 1 spray INTRAN NEELA ONCE [...] MOUTH TWICE A DAY WITH MEALS cc: RHONDA GROVER, MANISAH ------ ------ ------ ------ ------ ------ ------ [...] at the addres s above. Thank you. [facility] [address] [place], [address] 01/09/2024 17:04:48 01/09/20 24 01/08/2024 ED progr ess note ED Progre ss Note ELISABETH Olmedo NAME: Naya Andrea UNIT #: [id number] ADMITT ING PROVID ER: Andie Mcintyre M.D. ACCOUN T #: [id number] PRIMAR Y CARE PROVID ER: MANISHA ELLIS MD DATE OF ADMIT: : 1974 Date of servic e: Time of Servic e: 23:12 Medica l Roman on Making This elisabeth olmedo was signed out to me. Please see previo us notes for H P and initia l eval. In brief, 48yo F awaiti ng volunt verona psych placem ent for SI. Overni ght appear ed to be sleepi ng comfor tably. No behavi oral issues . Did not wake patistephanie t for assess ment. Signed out to oncomi janis physic ketan, plan remain s as above. Qualit y:SDOH Health Relate d Social Needs: No Data to Displa y Sign Out Sign Out Data: Sign Out Commen t: Care signed out to Dr. Jeremiah Mezt no, please see my docume ntatio n regard ing initia l ED presen tation and course . Plan at signou t is to contin ue to monito r until inpati ent treatm ent can be identi fied. Psychi atric consul t pendin g. Elisabeth olmedo is bringi ng in her home medica tions that we do not have these in [facility]. Other home medica tions have been ordere d. Last update d by Cisco French MD at 17:16 Sign Out Commen t: lili gladis, SI, awaiti ng placem ent Last [...] HS omepra zole 20 mg Capsul e,Karina babcock Releas e(Dr/E c) 20 mg PO DAILY prochl orpera zine maleat e 10 mg Tablet 10 mg PO DAILY PRN (Reaso n: Headac he) albute rol sulfat e [Alvaro janet HFA] 90 mcg/ac tuatio n Hfa Aeroso l Inhale r 2 puff INHALA TION QID PRN naloxo ne [Narca n] 4 mg/act uation Bryan, Non-Ae rosol 1 spray INTRAN NEELA ONCE [...] at the addres s above. Thank you. [facility] [address] [place], [address] 01/09/2024 17:04:49 01/09/20 24 01/09/2024 ED progr ess note ED Progre ss Note ELISABETH Olmedo NAME: Naya Andrea UNIT #: [id number] ADMITT ING PROVID ER: Wanda Ricardo M.D. ACCOUN T #: [id number] PRIMAR Y CARE PROVID ER: MANISHA ELLIS MD DATE OF ADMIT: : 1974 Date of servic e: Time of Servic e: 07:22 Medica l Decisi on Making Patien t signed out to me with no [...] fied. Psychi atric consul t pendin g. Elisabeth olmedo is bringi ng in her home [...] naloxo ne [Narca n] 4 mg/act uation Bryan, Non-Ae rosol 1 spray INTRAN NEELA ONCE [...] --- Dictat ed by: BRADEN GROVER, WANDA Efrain Dictat ed: Time: 072 2 Date: 721 Date: Date: Transc ribed Date: [...] at the addres s above. Thank you. [facility] [address], [place], [address] 01/09/2024 17:04:49 01/09/20 24 01/09/2024 komal mack h progr ess note MENTAL HEALTH PROGRE SS NOTE PATIEN T NAME: Naya Andrea UNIT #: [id number] ADMITT ING PROVID ER: Azalea Ritchie T #: [id number] 21 PRIMAR Y CARE PROVID ER: [...] staton, with an educat ional amadeo from [employer]. Suicid e Severi ty Rate CSSRS Have [...] to today? : Yes, ady pond at [facility] ED Non Suicid al Self Injury Curren [...] Unrema rkable Percep tion: Not impair ed Hutchins ation: Fully orient ated Memory : Intact [...] on female presen ting via [facility] at [facility] for reasse ssment while awaiti ng volunt verona placem ent. This comic book writer consul salty with client s [facility] nurse Hesham, stated client had a uneve [...] when asked to descri be mood. This comic book writer checke d in with [facility], client under review , [facility] client under review , [facility] declin ed client and [facility] [place] yolanda pulido will keep client on this list. This comic book writer will send update d reasse ssment to all hospit al.s Plan/D isposi tion Recomm ended Dispos ition: Hospit alizat ion (refer [facility] submit salty for volunt verona placem ent ) facili ties contac salty. Plan: Client will remain at [facility] ED in Zone B until placem ent is found for her liz olmedo persis tent SI. Client will need daily reasse ssment s until placem ent is found. Facili ties contac salty if Applic able [facility] (Under review ) Not accept ed, (under review ) Other [facility] (will contin ue to have client on list, [facility] [place] ) Not accept ed, No bed availa ble [facility] Not accept ed, (under review ) Other, [facility] Not accept ed, (decli ene) Other Report s/comm unicat ion Outcom e discus sed with: ED/Per robert (KANNAN Dahl) cc: ------ ------ ------ ------ ------ ------ ------ ------ ------ ------ ------ --- Dictat ed by: Azalea Ritchie Dictat ed: Time: 1017 Date: 1026 Date: [...] at the addres s above. Thank you. [facility] [address] [place], [address] 01/09/2024 17:04:49 01/09/20 24 01/09/2024 care manag ement safet y plan Care Manage ment Safety Plan ELISABETH Olmedo NAME: Edgardo alexNaya peter Smiley UNIT #: [id number] ADMITT ING PROVID ER: Soha Tobias T #: [id number] 21 PRIMAR Y CARE PROVID ER: MANISHA ELLIS MD DATE OF ADMIT: : 1974 Date of servic e: Time of Servic e: 14:32 Care Manage ment Safety Plan Status Status : Volunt verona Reason for Wait Reason for Wait: Inpati ent Admiss ion Safety Plan Safety Plan: [place] FOR INPATI ENT PSYCHI ATRIC STABIL IZATIO N.??? Elisabeth honorio is approp riate in all intera ctions since arrivi ng at [facility]; Pt has demons trated approp riate coping and commun icatio n skills , has articu lated his or her needs and concer ns and is fully engage d during staff intera ctions . 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 3. May have paper cups, plates , finger foods as well as a cardbo tesfaye spoon with which to eat meals. 4. Follow [facility] Manage ment of the Admitt ed Behavi oral Health Patien t policy . 5. Shower availa ble in Zone B withou t restri ction. 6. Person al belong ings-s oft items permit salty at RN discre tion. 7. Visito rs-santhosh maria esther may visit at nursin g's discre tion 8. Activi ties: soft cart items approv ed per RN discre tion. 9.??? [place] om availa ble in Zone B withou t restri ction. 10. Phone: limite d to [facility] nenita ss phone at RN discre tion. Due to VOL[place] status , if elisabeth olmedo wishes to leave [facility], staff will contac t [facility] Crisis Screen er ([phone]) and On-Karin l Care Manage r ([phone]) as soon as arsh payton. In the event of elopem ent, notify Adiel olmedo [employer] ([phone]). Elisabeth olmedo is curren tly volunt arily at [facility] and [facility] admiss ion when a bed become s availa ble. [facility] Frontl ine Data Center Technician will contin ue seekin g placem ent. Please contac t the Order Picker/Assembler Care Manage r ([phone]) and [facility] Data Center Technician ([phone]) for any needed change s in the Safety Plan. Safety plan [facility] prov[facility]. cc: ------ ------ ------ [...] at the addres s above. Thank you. [facility] [address], [address] 01/09/2024 17:04:50 01/09/20 24 01/08/2024 care manag ement safet y plan Care Manage ment Safety Plan ELISABETH Olmedo NAME: Naya Andrea UNIT #: [id number] ADMITT ING PROVID ER: Melany Tobias ACCOUN T #: [id number] 21 PRIMAR Y CARE PROVID ER: MANISHA ELLIS MD DATE OF ADMIT: : 1974 Date of servic e: Time of Servic e: 12:42 Care Manage ment Safety Plan Status Status : Volunt verona Reason for Wait Reason for Wait: Inpati ent Admiss ion Safety Plan Safety Plan: [place] FOR INPATI ENT PSYCHI ATRIC STABIL IZATIO N.??? Patien t is approp riate in all intera ctions since arrivi ng at [facility]; Pt has demons trated approp riate coping and commun icatio n skills , has articu lated his or her needs and concer ns and is fully engage d during staff intera ctions . Safety plan has been establ ished with patien t, and care team, to adhere to patien [...] at all times provid ed by [employer]; QUARTER SECTION IRONER, GREEN BUILDING MATERIALS DISTRIBUTOR belt and link assembly supervisor. 3. May have paper cups, plates , finger foods as well as a cardbo tesfaye spoon with which to eat meals. 4. Follow [facility] Manage ment of the Admitt ed Behavi [...] restri ction. 10. Phone: limite d to [facility] nenita ss phone at RN discre tion. Due to V[place] status , if elisabeth olmedo wishes to leave [facility], staff will contac t [facility] Crisis Screen er ([phone]) and On-Karin l Care Manage r ([phone]) as soon as possib le. In the event of elopem ent, notify Adiel olmedo [employer] ([phone]). Elisabeth olmedo is curren tly volunt arily at [facility] and [facility] admiss ion when a bed become s availa ble. [facility] Frontl ine Data Center Technician will contin ue seekin g placem ent. Please contac t the Order Picker/Assembler Care Manage r ([phone]) and [facility] Data Center Technician ([phone]) for any needed change s in the Safety Plan. Safety plan has been provid ed to [facility]. cc: ------ ------ ------ ------ ------ ------ ------ ------ ------ ------ ------ --- Dictat ed by: Melany Tobias Dictat ed: Time: 1242 Date: 1434 Date: Date: Transc ribed Date: Transc ribed Time: 1242 By: JIMBO This is privil eged, confid ential inform ation, intend ed only for the provid er named. Any use or distri bution by any person other than this [facility] er is strict ly prohib ited. If you receiv e this report in error, please notify us immedi russly at [phone] and return the origin al report to us at the addres s above. Thank you. [facility] [address] [place], [address] 01/09/2024 17:04:48 01/10/20 24 01/09/2024 ED progr ess note ED Progre ss Note ELISABETH Olmedo NAME: Naya Andrea UNIT #: [id number] ADMITT ING PROVID ER: Andie Mcintyre M.D. ACCOUN T #: [id number] PRIMAR Y CARE PROVID ER: MANISHA ELLIS MD DATE OF ADMIT: : 1974 Date of servic e: Time of Servic e: 23:27 Medica l Terrellisi on Making This patien t was signed [...] for assess ment. Signed out to oncomi janis physic ktean, plan remain s as above. Qualit y:SDOH [...] Commen t: 48yo F, SI, medica lly clearpeter d, home meds in, pendin g volunt [...] sonny 30 mg capsul e,karina yoko releas e(/Peter C) 30 mg PO DAILY Patien t [...] tablet 4 mg PO BID Pati t Comm ts: TAKE TWO TABLET S [...] zole 20 mg Capsul e,Karina yoko Releas e(/Peter c) 20 mg PO DAILY prochl orpera zine maleat e 10 mg Tablet 10 mg PO DAILY PRN (Reaso n: Headac he) albute rol sulfat e [Alvaro janet HFA] 90 mcg/ac tuatio n Hfa Aeroso l Inhale r 2 puff INHALA TION QID PRN naloxo ne [Narca n] 4 mg/act uation Bryan, Non-Ae rosol 1 spray INTRAN NEELA ONCE PRN Pati t Comm ts: Never used. valacy clovir 1 gram tablet 500 mg PO QHS aspiri n 81 mg tablet ,delay ed christi power (/EC ) 81 mg PO DAILY Qty: 14 0RF Rx Instru ctions : Take 1 daily with a meal for 30 days estrad iol 1 mg tablet See Rx Instru ctions .ROUTE .COMPL EX Elisabeth Dumas ts: TAKE 1 TABLET BY MOUTH EVERY [...] tablet 150 mg PO HS Patistephanie olmedo Commstephanie ts: TAKE 1 TABLET BY [...] at the addres s above. Thank you. [facility] [address] [place], [address] 01/10/2024 10:35:39 01/10/20 24 01/10/2024 ED progr ess note ED Progre ss Note PATIEN T NAME: Naya Andrea UNIT #: [id number] ADMITT ING PROVID ER: Wanda Ricardo M.D. ACCOUN T #: [id number] PRIMAR Y CARE PROVID ER: MANISHA ELLIS MD DATE OF ADMIT: : 1974 Date of servic e: Time of Servic e: 07:27 Medica l Decisi on Making Patistephanie t still awaiti ng placem ent for SI and depres gladis, [...] identi fied. Psychi atric consul t pendin gNing olmedo is bringi ng in her home [...] placem ent. Last update d by Andie cMintyre MD at 06:53 Sign Out Commen t: [...] naloxo ne [Narca n] 4 mg/act uation Bryan, Non-Ae rosol 1 spray INTRAN NEELA ONCE [...] See Rx Instru ctions .ROUTE .COMPL EX Elisabeth olmedo Commen ts: TAKE 1 TABLET BY [...] error, please notify us immedi russly at [phone] and return the origin al report to us at the addres s above. Thank you. [place] [id number] [place], [address] 01/10/2024 10:35:40 01/10/20 24 01/10/2024 care manag ement safet y plan Care Manage ment Safety Plan ELISABETH Olmedo NAME: Naya Andrea peter Smiley UNIT #: [id number] ADMITT ING PROVID ER: Melany Tobias ACCOUN T #: [id number] 21 PRIMAR Y CARE PROVID ER: MANISHA ELLIS MD DATE OF ADMIT: : 1974 Date of servic e: Time of Servic e: 15:42 Care Manage ment Safety Plan Status Status : Volunt verona Reason for Wait Reason for Wait: Inpati ent Admiss ion Safety Plan Safety Plan: [place] FOR INPATI ENT PSYCHI ATRIC STABIL IZATIO N.??? Patien t is approp riate in all intera ctions since arrivi ng at [facility]; Pt has demons trated approp riate coping and commun icatio n skills , has articu lated his or her needs and concer ns and is fully engage d during staff intera ctions . Safety plan has been establ ished with patien t, and care team, to adhere to patien [...] at all times provid ed by [employer]; QUARTER SECTION IRONER, GREEN BUILDING MATERIALS DISTRIBUTOR belt and link assembly supervisor. 3. May have paper cups, plates , finger foods as well as a cardbo tesfaye spoon with which to eat meals. 4. Follow [facility] Manage ment of the Admitt ed Behavi oral Health Patien t policy . 5. Shower availa ble in Zone B withou t restri ction. 6. Person al belong ings-s oft items permit salty at RN discre tion. 7. Visito rs-fam maria esther may visit at nursin g's discre tion 8. Activi ties: soft cart items approv ed per RN discre tion. 9.??? Bathro om availa ble in Zone B withou t restri ction. 10. Phone: limite d to [facility] nenita ss phone at [place]. Due to VOLUNT VERONA status , if elisabeth olmedo wishes to leave [facility], staff will contac t [facility] Crisis Screen er ([phone]) and On-Karin l Care Manage r ([phone]) as soon as possib le. In the event of elopem ent, notify Adiel olmedo [employer] ([phone]). Elisabeth olmedo is curren tly volunt arily at [facility] and [facility] admiss ion when a bed become s availa ble. [facility] Frontl ine Data Center Technician will contin ue seekin g place ent. Please contac t the Order Picker/Assembler Care Manage r ([phone]) and [facility] Data Center Technician ([phone]) for any needed change s in the Safety Plan. Safety plan has been provid ed to [facility] ental care team. cc: ------ ------ ------ ------ ------ ------ ------ ------ ------ ------ ------ --- Dictat ed by: Melany Tobias Dictat ed: Time: 1542 Date: 154 Date: Date: Transc ribed Date: Transc ribed Time: 154 By: JIMBO This is privil eged, confid [...] at the addres s above. Thank you. [facility] [id number] [place], [address] 01/11/2024 07:54:44 01/10/20 24 01/10/2024 menta l healt h progr ess note MENTAL HEALTH PROGRE SS NOTE LEISABETH Olmedo NAME: Naya Andrea UNIT #: [id number] ADMITT ING PROVID ER: Tai Willy westefrain sherice MANNING T #: [id number] PRIMAR Y CARE PROVID ER: [...] every day Total score: 25 Source : Develo ped by Drs. Russell pulido, Jennifer Seay ms, Jaydon power and mikki staton, with an educat ional amadeo from [employer]. Suicid e Severi ty Rate CSSRS Have [...] for ES prior to today? : Yes, presen salty at [facility] ED Non Suicid al Self Injury Curren [...] Unrema rkable Percep tion: Not impair ed Hutchins ation: Fully orient ated Memory : Intact [...] old Caucas ketan female presen roneng at [facility] for reasse ssment awaiti ng volunt verona admiss ion at [facility] ED. Client orient ated across all sphere [...] Plan: awaiti ng volunt verona placem ent [facility]- Stated to check in tomorr ow WC declie nd BR declie nd due to medica l comple xity and contin uity in treatm ent based of [facility] stay [facility] no capaci ty Report s/comm unicat ion Outcom e discus sed with: ED/Per robert (Dr. Ricardo, RN Aurea ) cc: ------ ------ ------ ------ ------ ------ ------ ------ ------ ------ ------ --- Dictat ed by: Azalea Ritchie Dictat ed: Time: 1620 Date: 163 Date: Date: Transc ribed Date: Transc ribed Time: 162 By: CONCHITA This is privil eged, confid [...] at the addres s above. Thank you. [facility] [address] [place], [address] 01/11/2024 07:54:44 01/11/20 24 01/11/2024 ED progr ess note ED Progre ss Note PATIEN T NAME: Naya Andrea UNIT #: [id number] ADMITT ING PROVID ER: Andie Mcintyre M.D. ACCOUN T #: [id number] PRIMAR Y CARE PROVID ER: MANISHA ELLIS MD DATE OF ADMIT: : 1974 Date of servic e: Time of Servic e: 23:30 Medica l Terrellisi on Making This patien t was signed out to me. Please see previo us notes for H P and initia l eval. In brief, 48yo F presen ting with SI, medica lly cleare christina, pendin g volunt verona psychi atric placem ent. Overni ght no acute behavi oral events . Did not wake patien t for evalua tion. Signed out to oncomchai chambersn, plan remain s as above. Qualit [...] naloxo ne [Narca n] 4 mg/act uation Bryan, Non-Ae rosol 1 spray INTRAN NEELA ONCE [...] Date: Transc ribed Date: Transc ribed Time: 0003 By: LA This is privil eged, confid ential inform ation, intend ed only for the provid er named. Any use or distri bution by any person other than this provid er is strict ly prohib ited. If you receiv e this report in error, please notify us immedi ately at [phone] and return the origin al report to us at the addres s above. Thank you. [facility] [address], [place], [address] 01/11/2024 07:54:44 01/11/20 24 01/11/2024 ED progr ess note ED Progre ss Note ELISABETH Olmedo NAME: Naya Andrea UNIT #: [id number] ADMITT ING PROVID ER: Prudencio Babcock M.D. ACCOUN T #: [id number] PRIMAR Y CARE PROVID ER: MANISHA ELLIS [...] oral issues last shift. Patien t is lesa yee placem ent. Will update docume ntatio n as [facility] [place] and signed patien t out to the oncomi janis evenin g provid er. 5:10 PM No active behavi oral issues last shift. Will sign patien t out to oncomi ng evenin g provid er. Qualit y:SDOH Health Relate d Social Needs: No Data to Displa y Sign Out Sign Out Data: Sign Out Commen t: Care signed out to Dr. Jeremiah Metz no, please see my docume magali n regard ing initia l ED presen tation and course . Plan at signou t is to contin ue to monito r until inpati ent treatm ent can be identi fied. Psychi atric consul t pendin g. Patistephanie olmedo is daniela bruce in her home medica [...] PsychE nichelle Primar y Care Provid er: RhondaManisha ED Provid er: Burak t,[facility] Meds and New Rx's Prescr iption s: [...] naloxo ne [Narca n] 4 mg/act uation Bryan, Non-Ae rosol 1 spray INTRAN NEELA ONCE PRN Pati t Comm ts: Never used. valacy clovir [...] 100 mg tablet 150 mg PO HS Elisabeth olmedo Commstephanie ts: TAKE 1 TABLET BY MOUTH EVERY DAY buprop ion HCl 150 mg tablet extend ed releas e 24 hr 150 mg PO BID Elisabeth olmedo Commstephanie ts: TAKE ONE TABLET BY MOUTH TWICE A DAY WITH MEALS cc: MANISHA ELLIS MD ------ ------ ------ ------ ------ ------ ------ ------ ------ ------ ------ --- Dictat ed by: Prudencio Babcock M.D. Dictat ed: Time: 071 8 Date: 1710 Date: Date: Transc ribed Date: Transc ribed Time: 717 By: RUDY This is privil eged, confid ential inform ation, intend ed only for the provid er named. Any use or distri bution by any person other than this provid er is strict ly prohib ited. If you receiv e this report in error, please notify us immedi ately at [phone] and return the origin al report to us at the addres s above.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 and return the origin al report to us at the addres s above. Thank you. [facility] [address], [place], [address] 01/14/2024 16:09:29 01/14/20 24 01/13/2024 ED progr ess note ED Progre ss Note PATISTEPHNAIE T NAME: Naya Andrea UNIT #: [id number] ADMITT ING PROVID ER: Shweta Salamanca M.D. ACCOUN T #: [id number] PRIMAR Y CARE PROVID ER: MANISHA [...] t. 4 at 3:21 AM the patien t is awake and going to the [facility]. She has no compla ints. Sign Out Sign Out Data: Sign Out Commen t: Care signed out to Dr. Jeremiah Metz no, please see my docume ntatio n regard ing initia l ED presen tation and course . Plan at signou t is to contin ue to monito r until inpati ent treatm ent can be identi fied. Psychi atric consul t pendkristofer yee. Elisabeth olmedo is bringi ng in her home [...] naloxo ne [Narca n] 4 mg/act uation Bryan, Non-Ae rosol 1 spray INTRAN NEELA ONCE [...] MOUTH TWICE A DAY WITH MEALS cc: RHONDA GROVER, MANISHA ------ ------ ------ ------ ------ [...] at the addres s above. Thank you. [facility] [address] [place], [address] 01/14/2024 16:09:29 01/15/20 24 01/14/2024 rhyth m strip , EKG* No observ ation record ed. [email or web address] [place], [address], 01/15/2024 11:50:15 01/22/20 24 01/13/2024 rhyth m strip , EKG* No observ ation record ed. [email or web address] [place], [address], 01/24/2024 08:02:11 06/03/20 24 06/03/2024 MAMMO , scree sotero, digit al, bilat eral Patistephanie t Name: Naya Andera Unit #: [id number] Loc: DI Orderi ng Provid er: Manisha Ellis M.D. Accoun t #: [id number] Status : REG CLI Primar y Care Provid er: Manisha Ellis M.D. Date of Exam: 11/15 Sex: F Admiss ion Date: : 1974 Age: 48 Exam(s ) MG MAMMO SCREEN ING EXAM: MG MAMMO SCREEN ING CLINIC AL HISTOR Y: SCREEN ING, Z12.31 TECHNI QUE: Mammog jordan were interp reted accord ing to the usual protoc ol includ ing comput er analys is with CAD system , tomosy nthesi s and C-view imagin g. COMPAR CITLALY: 2014 throug h 2022 FINDIN GS: The breast s are compos ed of mainly fatty densit y , Breast Densit y catego ry A. No suspic ious masses or suspic ious microc alcifi cation s are seen. No skin thicke sotero or abnorm al axilla ry lymph nodes are seen. There has been no signif icant change from prior exams. IMPRES GLADIS: BI-RAD S Catego ry 1, Negati ve mammog mervin Yearly screen ing mammog damir is recomm ended. Breast Densit y - Catego ry A, fatty densit y. A negati ve radiog raphic report should not delay biopsy if a domina nt or clinic ally suspic ious mass is presen t. Up to ten percen t of cancer s are not identi fied on mammog damir. A negati ve report may reinfo rce clinic al impres gladis. Adenos is and dense breast s may obscur e an underl cynthia neopla sm. False positi ve report s averag e 6 to 10%. Patien t will receiv e a letter notify ing them of these result s. Ordere d By: Manisha Ellis M.D. CC: ------ ------ ------ ------ ------ ------ ------ ------ ------ ------ ------ ------ - Dictat ed By: Marc Lao [id number] Transc ribed By: Sobia Montoya 1216 This is privil eged, confid ential inform ation intend ed only for the provid er named. Any use or distri bution by any person other than this provid er is strict ly prohib ited. If you receiv e this report in error, please notify us immjadei tova at [phone] and return the origin al report to us at the addres s above. Thank- you. [email or web address] [facility] [address], [place], [address], 06/07/2024 13:10:46 Result Notes None recorded. Problems Name Status Onset Date Resolution Date Notes Provider Name and Address Organization Details Recorded Time Hyperlipidemi a Active 2004 MANISHA ELLIS MD [address], [place], [address] , [facility] 02/13/202 4 17:39:18 Chronic tension-type headache Active 2005 Jessica Toussaint nadege, [facility] 4 14:11:03 Polycystic ovary syndrome Active [address], [facility] [address] , [facility] 4 17:42:00 Recurrent major depression Active [address], [address] 3 21:49:59 Carpal tunnel syndrome of right wrist Active [address], [address] 3 21:56:06 Obesity Active [address], [address] 3 21:50:41 Steatosis of liver Active 2005 FIB4 score 0.51 2017, 0.86 [address], [place] [address] , [facility] 4 17:46:29 Type 2 diabetes mellitus without complication Active [address], [facility] [address] , [facility] 3 21:49:31 Intolerance to lactose Active [address], [place] [address] , [facility] 4 17:40:28 Chronic pain syndrome Active 2010 MME [address], [facility] [address] , [facility] 4 17:43:50 Tachycardia Active [address], [facility] [address] , [facility] 3 21:49:45 Atheroscleros is of coronary artery without angina pectoris Active 2012 Jessica Toussaint nadege, [facility] 4 14:10:47 Discharge from nipple Completed 201406/20/2015 Problem Code: N64.52; Problem Code Type: ICD-10; Not Available [facility] 3 05:12:22 Amenorrhea Completed 201406/20/2015 05/23/2015 - Comments only - Manisha Ellis MD - and nipple discharge. Negative urine test in the office, but will check serum HCG , as well as prolactin level. Problem Code: N91.2; Problem Code Type: ICD-10; Not Available [facility] 3 05:12:23 Adult health examination Active [address], [facility] [address] , [facility] 4 17:32:17 Hypothyroidis m Active [address], [place], [address] , [facility] 3 21:51:31 Hypomagnesemi a Active [address], [facility] [address] , [facility] 3 21:51:39 Arthralgia of the ankle and/or foot Completed 201511/12/2016 Problem Code: M25.572; Problem Code Type: ICD-10; Not Available [facility] 3 05:12:23 Nausea and vomiting Completed 201604/30/2017 04/23/2017 - Comments only - Manisah Ellis MD - Heart no wet at this is simply a recurrent gastroenterit is. She is not having diarrhea, so C. difficile for Giardia and no longer likely. We will draw her blood today for CBC and CMP. Also amylase and lipase given extent of her nausea and vomiting. Problem Code: R11.2; Problem Code Type: ICD-10; Not Available [facility] 3 05:12:23 Dysuria Completed 201604/30/2017 04/23/2017 - Comments only - Manisha Ellis MD - We will check urinalysis to be sure this is not UTI/pyeloneph ritis. Problem Code: R30.0; Problem Code Type: ICD-10; Not Available [facility] 3 05:12:23 Primary amenorrhea Completed 201610/02/2017 [...] N91.0; Problem Code Type: ICD-10; Not Available [facility] 3 05:12:24 Acute bronchitis Completed 201610/09/2017 [...] J20.9; Problem Code Type: ICD-10; Not Available [facility] 3 05:12:24 Screening for malignant neoplasm of cervix Completed 201703/01/2018 Problem Code: Z12.4; Problem Code Type: ICD-10; Not Available [facility] 3 05:12:24 Tobacco user Active [address], [place], [address] , [facility]. 3 21:49:37 Hypertrophic condition of skin Completed 201708/25/2018 08/20/2018 - Comments only - Manisha Ellis MD - Sites are consistent with silver nitrate application with slight irritation. To avoid infection I suggested applying mupirocin Problem Code: L91.8; Problem Code Type: ICD-10; Not Available [facility] 3 05:12:24 Acute bronchitis Completed 201711/08/2018 10/25/2018 - Comments only - Manisha Ellis MD - Persistent symptoms for 4 weeks, we will go ahead and start antibiotics, azithromycin given penicillin allergy Problem Code: J20.9; Problem Code Type: ICD-10; Not Available [facility] 3 05:12:24 Pain in left arm Active [address], [facility] [address] , [facility] 3 21:50:31 Posttraumatic stress disorder Active [address], [facility] [address] , [facility] 3 21:50:08 Fatigue Active [address], [place], [address] , [facility] 3 21:52:27 Diarrhea Completed 201901/05/2020 12/22/2019 - [...] R19.7; Problem Code Type: ICD-10; Not Available [facility] 3 05:12:25 Herpesvirus infection Active 2019 Jessica light, [facility] 4 14:11:26 Disorder of external ear Completed 201903/08/2020 Problem Code: H60.10; Problem Code Type: ICD-10; Not Available [facility] 3 05:12:25 Lumbago with sciatica Active [address], [place], [address] , [facility] 4 17:40:39 Pain of right shoulder joint Active 2021 MRI 12/[address], [place], [address] , [facility] 4 17:41:50 Dysuria Completed 202102/03/2022 01/20/2022 - Comments only - Manisha Ellis MD - and urinary incontinence, referral back to urology. Problem Code: R30.0; Problem Code Type: ICD-10; Not Available [facility] 3 05:12:26 Muscle pain Active 2021 deep muscle biopsy, awaiting results. 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 MD [address], [place], [address] , [facility] 4 17:41:01 Displacement of cervical intervertebra l disc Active 2021 Jessica light, [facility] 4 14:11:08 Pre-surgery evaluation Completed 202104/23/2022 [...] Z01.818; Problem Code Type: ICD-10; Not Available [facility] 3 05:12:27 Anxiety disorder Active [address], [place], [address] , [facility] 4 17:32:23 Seasonal allergic rhinitis Active [address], [facility] [address] , [facility] 4 17:42:04 Urinary incontinence Active [address], [facility] [address] , [facility] 3 21:49:24 Dyspnea Completed 202110/06/2022 Problem Code: R06.09; Problem Code Type: ICD-10; Not Available [facility] 3 05:12:28 Screening mammography Completed 202111/03/2023 Problem Code: Z12.31; Problem Code Type: ICD-10; MD [address], [facility] [address] , [facility] 3 21:49:52 Chondromalaci a of left knee Active [address], [facility] [address] , [facility] 4 17:32:37 Acute vaginitis Completed 202210/06/2023 Problem Code: N76.0; Problem Code Type: ICD-10; Removal Reason: resolved MD [address], [facility] [address] , [facility] 3 12:54:07 Dyspnea Completed 202006/17/2021 Problem Code: R06.02; Problem Code Type: ICD-10; Not Available [facility] 3 05:12:35 Lactose intolerance Completed 200408/19/2023 Not Available [facility] 3 05:12:36 Dysthymia Completed 201705/16/2019 Problem Code: F34.1; Problem Code Type: ICD-10; Not Available [facility] 3 05:12:36 Acute upper respiratory infection Completed 201903/22/2020 Problem Code: J06.9; Problem Code Type: ICD-10; Not Available [facility] 3 05:12:38 Low back pain Completed 201610/25/2021 Problem Code: M54.5; Problem Code Type: ICD-10; Not Available [facility] 3 05:12:38 Right upper quadrant pain Completed 201607/30/2017 Problem Code: R10.11; Problem Code Type: ICD-10; Not Available [facility] 3 05:12:38 Anxiety Completed 200408/19/2023 Problem Code: F41.8; Problem Code Type: ICD-10; Not Available [facility] 3 05:12:39 Pelvic and perineal pain Completed 201810/03/2019 Problem Code: R10.2; Problem Code Type: ICD-10; Not Available [facility] 3 05:12:39 Atrial flutter Completed 202006/17/2021 Problem Code: I48.92; Problem Code Type: ICD-10; Not Available [facility] 3 05:12:39 Hyperglycemia due to type 2 diabetes mellitus Completed 200508/19/2023 12/18/2017 - Comments only - Manisha Ellis MD - check labs prior to follow up visit. Problem Code: E11.65; Problem Code Type: ICD-10; Not Available [facility] 3 05:12:40 Splenomegaly Completed 200608/19/2023 Not Available [facility] 3 05:12:40 Morbid obesity Completed 200408/19/2023 Not Available [facility] 3 05:12:40 Derangement of left knee Completed 202204/15/2023 Problem Code: M23.92; Problem Code Type: ICD-10; Not Available [facility] 3 05:12:41 Pain of left shoulder joint Completed 201805/06/2021 Problem Code: M25.512; Problem Code Type: ICD-10; Not Available [facility] 3 05:12:41 Noninflammato ry disorder of the vagina Completed 202204/20/2023 Problem Code: N89.8; Problem Code Type: ICD-10; Not Available [facility] 3 05:12:42 Pelvic and perineal pain Completed 201607/30/2017 Problem Code: R10.2; Problem Code Type: ICD-10; Not Available [facility] 3 05:12:42 Dysuria Completed 202107/09/2022 Problem Code: R30.9; Problem Code Type: ICD-10; Not Available [facility] 3 05:12:42 Polycystic ovaries Completed 200508/19/2023 Not Available [facility] 3 05:12:43 Coronary arteriosclero sis Completed 201208/19/2023 Not Available [facility] 3 05:12:43 Localized edema Completed 201607/30/2017 Problem Code: R60.0; Problem Code Type: ICD-10; Not Available [facility] 3 05:12:44 Diarrhea Completed 201604/10/2017 Problem Code: R19.7; Problem Code Type: ICD-10; Not Available [facility] 3 05:12:44 Pain of right wrist Completed 202104/15/2023 Problem Code: M25.531; Problem Code Type: ICD-10; Not Available [facility] 3 05:12:45 Nicotine dependence Completed 201708/19/2023 10/03/2019 - Comments only - Manisha Ellis MD - congratulated on quitting. Problem Code: Z87.891; Problem Code Type: ICD-10; Not Available [facility] 3 05:12:45 Headache Completed 200508/19/2023 Not Available [facility] 3 05:12:45 Cyst of ovary Completed 201607/30/2017 Problem Code: N83.20; Problem Code Type: ICD-10; Not Available [facility] 3 05:12:47 Diabetes mellitus Completed 200508/19/2023 [...] do so at this time. Not Available [facility] 3 05:12:48 Fatigue Completed 201508/08/2016 Problem Code: R53.83; Problem Code Type: ICD-10; MD [address], [place], [address] , [facility] 21:52:27 Generalized anxiety disorder Completed 200408/19/2023 10/23/2017 - Comments only - Manisha Ellis MD - clonazepam is renewed for 8 weeks. Problem Code: F41.1; Problem Code Type: ICD-10; Not Available [facility] 3 05:12:49 Carpal tunnel syndrome Completed 201108/19/2023 Problem Code: 354.0; Problem Code Type: ICD-9; MD [address], [place], [address] , [facility] 21:56:13 Pneumocystosi s Completed 202111/06/2022 Problem Code: B59; Problem Code Type: ICD-10; Not Available [facility] 3 05:12:50 Acute pharyngitis Completed 201510/29/2016 Problem Code: J02.9; Problem Code Type: ICD-10; Not Available [facility] 3 05:12:50 Dysfunctional uterine bleeding Completed 200410/03/2019 Not Available [facility] 3 05:12:51 Active immunization Completed 201709/29/2019 Problem Code: Z23; Problem Code Type: ICD-10; Not Available [facility] 3 05:12:51 Pain of left knee joint Completed 202208/19/2023 Problem Code: M25.562; Problem Code Type: ICD-10; Not Available [facility] 3 05:12:52 Pain in right arm [...] MRI of cervical spine. She should call [facility] neurology to see if she can be on their cancellation list. Labs were drawn today for CPK, inflammatory markers. Reminded her that smoking lowers pain threshold. Problem Code: M79.601; Problem Code Type: ICD-10; Not Available [facility] 3 05:12:53 Palpitations Completed 202104/15/2023 Problem Code: R00.2; Problem Code Type: ICD-10; Not Available [facility] 3 05:12:54 Palpitations Completed 201805/16/2019 Problem Code: R00.2; Problem Code Type: ICD-10; Not Available [facility] 3 05:12:54 Glycosuria Completed 202204/15/2023 Problem Code: R81; Problem Code Type: ICD-10; Not Available [facility] 3 05:12:55 Mixed anxiety and depressive disorder Completed 200408/19/2023 10/05/2015 - Comments only - Manisha Ellis MD - I reminded her that every time she avoids a situation that gives her anxiety, she increases her anxiety, and that she should continue to try exposure therapy. Not Available [facility] 3 05:12:56 Exposure to sexually transmissible disorder Completed 201406/20/2015 Problem Code: Z20.2; Problem Code Type: ICD-10; Not Available [facility] 3 05:12:57 Syncope and collapse Completed 201902/11/2021 Problem Code: R55; Problem Code Type: ICD-10; Not Available [facility] 3 05:12:57 Dyspnea Completed 201904/15/2023 Problem Code: R06.02; Problem Code Type: ICD-10; Not Available [facility] 3 05:12:58 Severe obesity Completed 200408/19/2023 08/24/2020 - Comments only - Manisha Ellis MD - She is congratulated on her recent weight loss. Problem Code: E66.01; Problem Code Type: ICD-10; Not Available [facility] 3 05:12:58 Menopause present Completed 201801/11/2020 Problem Code: N95.1; Problem Code Type: ICD-10; Not Available [facility] 3 05:12:59 Exposure to communicable disease Completed 201910/05/2020 Problem Code: Z20.828; Problem Code Type: ICD-10; Not Available [facility] 3 05:13:00 Pain of breast Completed 202104/15/2023 Problem Code: N64.4; Problem Code Type: ICD-10; Not Available [facility] 3 05:13:01 Exposure to communicable disease Completed 202111/06/2022 Problem Code: Z20.828; Problem Code Type: ICD-10; Not Available [facility] 3 05:13:02 Recurrent herpes simplex Active [address], [place], [address] , [facility]. 3 12:52:56 Herniation of nucleus pulposus of cervical intervertebra l disc Active 2021 cervical spine MD [address], [place], [address] , [facility]. 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% in 03/[address], [place], [address] , [facility] 4 20:14:59 Cardiac defibrillator in situ Active [address], [place], [address] , [facility] 3 22:00:00 Localized infection of skin AND/OR subcutaneous tissue Completed 202208/28/2023 Problem Code: L08.9; Problem Code Type: ICD-10; Not Available [facility] 4 05:38:00 Injury due to suicide attempt Completed 202201/05/2024 Problem Code: T14.91xD; Problem Code Type: ICD-10; MD [address], [place], [address] , [facility] 4 17:42:23 Suicidal Active 2023 recurrent MD [address], [place], [address] , [facility] 4 17:43:22 Heart failure with reduced ejection fraction Active 2022 Jessica light, [facility] 4 14:11:13 Problem Notes None recorded. Procedures Surgical History Date Name Laterality Status Provider Name and Address Organization Details Recorded Time 0 hysterectomy completed MD [address], [place], [address], [facility] 12/09/2023 20:53:39 Imaging Results Imaging Date Name Status LastModified by Organization Details LastModified Time 12/31/2023 mental health crisis note completed [email or web address] [address] [place], [address] 12/31/2023 17:21:42 12/31/2023 ED visit note completed [email or web address] [address] [place], [address] 12/31/2023 17:21:41 12/31/2023 care management safety plan completed [address] [place], [address] 01/01/2024 12:01:18 01/01/2024 ED progress note completed [address] [place], [address] 01/01/2024 14:32:57 01/01/2024 care management progress note completed [address] [place], [address] 01/01/2024 16:24:41 01/07/2024 mental health crisis note completed [address] [place], [address] 01/08/2024 11:00:44 01/07/2024 ED visit note completed [address] [place], [address] 01/08/2024 11:00:43 01/07/2024 ED progress note completed [address] [place], [address] 01/08/2024 11:00:44 01/08/2024 ED progress note completed [address] [place], [address] 01/08/2024 11:00:45 01/08/2024 ED progress note completed [address] [place], [address] 01/09/2024 17:04:48 01/08/2024 ED progress note completed [address] [place], [address] 01/09/2024 17:04:48 01/08/2024 ED progress note completed [address] [place], [address] 01/09/2024 17:04:49 01/09/2024 ED progress note completed [address] [place], [address] 01/09/2024 17:04:49 01/09/2024 mental health progress note completed [address] [place], [address] 01/09/2024 17:04:49 01/09/2024 care management safety plan completed [email or web address] [place], [address] 01/09/2024 17:04:50 01/08/2024 care management safety plan completed [email or web address] [place], [address] 01/09/2024 17:04:48 01/09/2024 ED progress note completed [email or web address] [place] [place], [address] 01/10/2024 10:35:39 01/10/2024 ED progress note completed [address] [place], [address] 01/10/2024 10:35:40 01/10/2024 care management safety plan completed [email or web address] [place], [address] 01/11/2024 07:54:44 01/10/2024 mental health progress note completed [email or web address] [place], [address] 01/11/2024 07:54:44 01/11/2024 ED progress note completed [address] [place], [address] 01/11/2024 07:54:44 01/11/2024 ED progress note completed [email or web address] [place], [address] 01/11/2024 17:26:01 01/07/2024 ED progress note completed [email or web address] [place], [address] 01/12/2024 19:02:28 01/11/2024 ED progress note completed [address] [place], [address] 01/12/2024 19:02:29 01/09/2024 ED progress note completed [address] [place], [address] 01/12/2024 19:02:29 01/08/2024 ED progress note completed [address] [place], [address] 01/12/2024 19:02:29 01/11/2024 ED progress note completed [email or web address] [place] [address] [place], [address] 01/12/2024 19:02:30 01/11/2024 ED progress note completed [email or web address] [place], [address] 01/12/2024 19:02:30 01/12/2024 psychiatric consultation completed [address] [place], [address] 01/12/2024 19:02:30 01/12/2024 psychiatric consultation completed [address] [place], [address] 01/12/2024 19:02:31 01/12/2024 care management safety plan completed [address] [place], [address] 01/12/2024 19:02:31 01/12/2024 psychiatric consultation completed [address] [place], [address] 01/12/2024 19:02:31 01/12/2024 ED progress note completed [email or web address] [place], [address] 01/13/2024 07:40:16 01/13/2024 mental health progress note completed [address] [place], [address] 01/13/2024 14:08:53 01/13/2024 ED progress note completed [email or web address] [address] [place], [address] 01/13/2024 17:29:32 01/13/2024 mental health progress note completed [address] [place], [address] 01/14/2024 16:09:29 01/13/2024 ED progress note completed [email or web address] [place], [address] 01/14/2024 16:09:29 01/14/2024 rhythm strip, EKG* completed [address] [place], [address], 01/15/2024 11:50:15 01/13/2024 rhythm strip, EKG* completed [address] [place], [address], 01/24/2024 08:02:11 06/03/2024 MAMMO, screening, digital, bilateral [place] [address] [facility] [address], [place], [address], 06/07/2024 13:10:46 Procedure Notes None recorded. Medical Equipment None Reported. Allergies Allergen ID Allergen Name Allergen Category Reaction Reaction Severity Criticality Documentation Date Start Date Code Code System Note Provider Name and Address Organization Details Recorded Time 01497 Medicinal product containin g penicilli n and acting as antibacte rial agent (product) medicatio n anaphylax is Not available Not available 10/02/20232004 87887 05 SNOMED anaph ylact ic shock Aller gyCod e: '8340 61'; Aller gyNam e: 'PENI CILLI N'; Aller gyCon ceptT ype: 'RX Norm' ; Aller gyRea ction : 'anap hylac tic shock '; Not Available [facility] 16:14:27 37933 Substance with sulfonami de structure and antibacte rial mechanism of action (substanc e) medicatio n diarrhea nausea mild mild low 10/07/2023 50936 8005 SNVIRIDIANA LYNN LPN null, [place] - [facility] 3 11:21:44 Medications Name Sig Start Date [...] Avai lable lamotrigi ne 200 mg tablet TAKE ONE TABLET BY MOUTH AT BEDTIME active Not Available Not Available No t Available Neurontin 300 mg capsule 1cap tid 02/10 [...] NEEDED FOR ANXIETY AND PANIC ATTACK active Not Available Not Available No t Available metoprolo l succinate ER 100 mg [...] MOUTH EVERY DAY NEEDED FOR MIGRAINE S active Not Available Not Available No t Available Paxil 40 mg tablet Take 1 tablet every day by oral route. active Melvina W Not Available Not Available No t Available valacyclo vir 500 mg tablet take 4 tablets (2000 mg) q 12 hours for 2 doses PRN cold sore 2023 active Not Available Not Available Not Avai lable ciproflox acin 500 mg tablet Take 1 tablet by mouth twice a day 05/12 completed Not Available Not Available Not Available aspirin 81 mg tablet,de layed release TAKE ONE TABLET BY MOUTH EVERY DAY active Not Available Not Available No t Available Nicotrol 10 mg inhalatio n cartridge [...] Available Not Available Not Available lamotrigi ne 25 mg tablet TAKE ONE TABLET BY MOUTH EVERY DAY active Not Available Not Available No t Available ketorolac 10 mg tablet Take 1 tablet by mouth three times a day as needed for pain 11/27 completed Not Available Not Available Not Available MS Contin 15 mg tablet,ex tended release 1 TAB BID 11/21 completed Not Available Not Available Not Available Imitrex 50 mg tablet 1TAB 12/19 completed Not Available Not Available Not Available lancets Use 1 strip daily as directed . Dx: E11.9 2016 active Not Available Not Available Not Avai lable hydromorp romain 2 mg tablet TAKE TWO TABLETS BY MOUTH TWICE A DAY 10/07 completed Not Available Not Available Not Available magnesium oxide 400 mg (241.3 mg magnesium ) tablet TAKE TWO TABLETS BY MOUTH TWICE A DAY active Not Available Not Available No t Available estradiol 1 mg tablet TAKE ONE TABLET BY MOUTH EVERY MORNING AND ONE AND ONE-HALF TABLET BY MOUTH EVERY EVENING active Not Available Not Available No t Available Lice Treatment (permethr in) 1 % topical liquid 03/25 completed Not Available Not Available Not Available Synthroid 25 mcg tablet Take 1 tab by mouth daily 2015 active Not Available Not Available Not Avai lable baclofen 10 mg tablet 1TAB three times daily 10/04 completed Not Available Not Available Not Available levothyro xine 50 mcg tablet TAKE ONE TABLET BY MOUTH EVERY DAY active Not Available Not Available No t Available paroxetin e 20 mg tablet TAKE ONE TABLET BY MOUTH EVERY MORNING 07/04 completed Not Available Not Available Not Available nortripty line 10 mg capsule 2 tabs [...] TABLET BY MOUTH THREE TIMES A DAY 06/17 completed Not Available Not Available Not Available lisinopri l 10 mg tablet take 1 tablet by mouth once daily 04/01 completed Not Available Not Available Not Available promethaz ine 25 mg tablet 1tab [id number] 03/16 completed Not Available Not Available Not [...] by mouth once a day 11/27 completed [facility] cardiolo gy Not Available Not Available Not [...] daily Take as needed. 04/01 completed per [facility] Not Available Not Available Not Available albuterol sulfate HFA 90 mcg/actua tion aerosol inhaler INHALE TWO PUFFS BY MOUTH EVERY 4 TO 6 HOURS NEEDED active Not Available Not Available No t Available OxyContin 10 mg tablet,ex tended release 1 TAB twice daily 04/19 completed Not Available Not Available Not Available ketoconaz ole 2 % topical cream APPLY TO THE AFFECTED AREA(S) BY TOPICAL ROUTE ONCE DAILY 2023 active Not Available Not Available Not Avai lable hydromorp romain 4 mg tablet TAKE ONE TABLET BY MOUTH TWICE A DAY FOR PAIN active Not Available Not Available No t Available Zocor 40 mg tablet 1 TAB QHS 04/15 completed Not Available Not Available Not Available metformin ER 500 mg tablet,ex tended release 24 hr TAKE ONE TABLET BY MOUTH TWICE A DAY 07/04 completed diarhea, A1C is excellen t Not Available Not Available Not Available naratript an 2.5 mg tablet TAKE [...] completed Not Available Not Available Not Available Abilify 10 mg tablet Take 1 tab by mouth daily 2018 active per [facility] Not Available Not Available Not Available aripipraz [...] 1 tablet every day by oral route. 07/04 completed Not Available Not Available Not Available bupropion HCl XL 150 mg 24 hr tablet, extended release Take 1 tablet every day by oral route. 07/04 completed Not Available Not Available Not Available metoprolo l tartrate 25 mg tablet 1tab [...] 2 patches, change q3d. Fill only at [facility] 2014 active Not Available Not Available Not Avai lable pregabali n 100 mg capsule TAKE ONE CAPSULE BY MOUTH THREE TIMES A DAY active Not Available Not Available No t Available Lyrica 25 mg capsule Take 1 cap [...] by mouth once a day 11/06 completed [facility] cardiolo gy Not Available Not Available Not Available Farxiga 5 mg tablet TAKE ONE TABLET BY MOUTH EVERY DAY FOR HEART FAILURE active Not Available Not Available No t Available Bydureon 2 mg/0.65 mL subcutane ous pen [...] TABLET BY MOUTH TWICE A DAY active [facility] cardiolo gy Not Available Not Available Not [...] AND ONE-HALF TABLETS BY MOUTH EVERY DAY 07/04 completed Melvina Bond. Not Available Not Available Not Available Trintelli x 20 mg tablet TAKE ONE TABLET BY MOUTH EVERY DAY active Not Available Not Available No t Available magnesium 400 mg (as magnesium oxide) tablet Take 2 tablet by mouth twice a day 10/07 completed Not Available Not Available Not Available Trulicity 3 mg/0.5 mL subcutane ous pen injector INJECT 3MG UNDER THE SKIN ONCE WEEKLY active Not Available Not Available No t Available Paxlovid 300 mg (150 mg x 2)-100 [...] Updated DateTime 4 165.1 cm 32.3 kg/m2 39440.9 2 g 96.6 [degF] 92 /min 16 /min 100 mm[Hg] 62 mm[Hg] ELLIE LYNN LPN [facility] 4 10:51:19 Date Recorded Body height Body mass index (BMI) Body weight Body temperature Oxygen saturation Oxygen saturation in Arterial blood by Pulse oximetry Respiratory rate Heart rate Systolic blood pressure Diastolic blood pressure Provider Name and Address Organization Details Last Updated DateTime 4 165.1 cm 31.5 kg/m2 69909.9 6 g 97.1 [degF] 96 % 96 % 16 /min 92 /min 112 mm[Hg] 68 mm[Hg] ELLIE LYNN LPN [facility] 4 11:24:51 Date Recorded Body height Body mass index (BMI) Body weight Heart rate Respiratory rate Body temperature Oxygen saturation Oxygen saturation in Arterial blood by Pulse oximetry Systolic blood pressure Diastolic blood pressure Provider Name and Address Organization Details Last Updated DateTime 4 165.1 cm 31 kg/m2 57200.1 8 g 84 /min 16 /min 97.7 [degF] 99 % 99 % 104 mm[Hg] 68 mm[Hg] ELLIE LYNN LPN [facility] 4 14:43:33 Date Recorded Body height Body mass index (BMI) Body weight Body temperature Heart rate Respiratory rate Systolic blood pressure Diastolic blood pressure Provider Name and Address Organization Details Last Updated DateTime 165.1 cm 29.6 kg/m2 96169.4 4 g 97.7 [degF] 78 /min 16 /min 104 mm[Hg] 70 mm[Hg] ELLIE LYNN LPN [facility] 14:36:47 Date Recorded Body height Body mass index (BMI) Body weight Body temperature Oxygen saturation Oxygen saturation in Arterial blood by Pulse oximetry Respiratory rate Heart rate Systolic blood pressure Diastolic blood pressure Provider Name and Address Organization Details Last Updated DateTime 165.1 cm 30.1 kg/m2 35738.2 2 g 97.9 [degF] 96 % 96 % 16 /min 86 /min 110 mm[Hg] 68 mm[Hg] ELLIE LYNN LPN [facility] 16:53:19 Social History Question Answer Notes LastModified by Organizat ion Details LastModified Time Tobacco Smoking Status Former Smoker ELLIE LYNN LPN [facility] 05/27/2024 14:30:57 When Did You Quit Smoking? [...] And Wanted Help? (For Example, If You Dunbar Very Nervous, Lonely, Or Blue; Got Sick [...] Safety Concerns In Your Home (see Attached [facility][NOTE 3] Pamphlet)? No Information not available 05/27/2024 How [...] DM Type II MGM: CVA PGF: CAD, [place] lots of DMII on both sides. Medical History No medical history recorded. Gynecological HistoryNo gynecological history recorded. Obstetrics History GPAL:G 0 P 0 0 0 0 Immunizations Vaccine Type Date Status Provider Name and Address Organization Details Recorded Time Hep B, adult 05/27/2024 completed MD [address], [place], [address], [facility]. 05/27/2024 16:56:26 Td (adult), 5 Lf tetanus toxoid, preservative free, adsorbed 03/04/2019 completed Not Available [facility] 10/02/2023 05:15:00 Tdap 02/08/2009 completed Not Available [facility] 05:15:00 Novel [id number], all formulations 10/08/2009 completed Not Available [facility] 10/02/2023 05:15:00 Td(adult) unspecified formulation 03/27/2003 completed Not Available [facility] 10/02/2023 05:15:00 Influenza, split virus, trivalent, preservative 09/05/2015 completed Not Available [facility] 10/02/2023 05:15:00 Influenza, split virus, trivalent, preservative 10/29/2016 completed Not Available [facility] 10/02/2023 05:15:00 Influenza, split virus, quadrivalent, PF 08/08/2019 completed Not Available [facility] 10/02/2023 05:15:01 Influenza, split virus, quadrivalent, PF 08/24/2020 completed Not Available [facility] 10/02/2023 05:15:01 Influenza, split virus, quadrivalent, PF 09/29/2022 completed Not Available [facility] 10/02/2023 05:15:01 Influenza, split virus, quadrivalent, preservative 08/11/2018 completed Not Available [facility] 10/02/2023 05:15:01 Influenza, split virus, quadrivalent, preservative 08/27/2017 completed Not Available [facility] 10/02/2023 05:15:01 COVID-19, mRNA, LNP-S, PF, 30 mcg/0.3 mL dose 06/17/2021 completed Not Available [facility] 10/02/2023 05:15:01 COVID-19, mRNA, LNP-S, PF, 30 mcg/0.3 mL dose 07/09/2021 completed Not Available [facility] 10/02/2023 05:15:01 Pneumococcal conjugate PCV20, polysaccharide [id number] conjugate, adjuvant, PF 09/22/2022 completed Not Available [facility] 10/02/2023 05:15:02 COVID-19, mRNA, LNP-S, PF, 30 mcg/0.3 mL dose, leticia-sucrose 04/16/2022 completed Not Available [facility] 10/02/2023 05:15:02 COVID-19, mRNA, LNP-S, bivalent, PF, 30 mcg/0.3 mL dose 09/22/2022 completed Not Available [facility] 10/02/20 05:15:02 pneumococcal polysaccharide PPV23 03/27/2003 completed Not Available [facility] 2022 05:15:02 Hep B, adult 02/15/2018 completed Not Available [facility] 10/02/2023 05:15:02 Hep B, adult 04/16/2018 completed Not Available [facility] 10/02/2023 05:15:02 influenza, unspecified formulation 07/28/2014 completed Not Available [facility] 10/02/2023 05:15:02 Influenza, split virus, quadrivalent, PF 08/28/2023 completed Not Available [facility] 12/04/2023 05:33:21 Past Encounters Encounter ID Performer Location Encounter Start Date Encounter Closed Date Diagnosis/Indication Diagnosis SNOMED-CT Code [id number] MANISHA ELLIS MD [facility] [address] [place] [address] 10/07/2023 11:05:46 10/07/2023 12:08:55 Chronic pain syndrome 155728221 Diabetes m ellitus without complication 101980517 Recurrent candidiasis of vagina 085932463 Depressive disorder 6493 0339 [id number] MANISHA ELLIS MD [facility] [address] [place] [address] 01/06/2024 10:37:57 01/06/2024 11:32:57 Recurrent major depression 62805012 Lumbago with sciatica 20 5804075 [id number] MANISHA ELLIS MD [facility] [address] [place] [address] 01/27/2024 10:52:59 01/27/2024 12:13:44 Recurrent major depression 98118252 Candidiasis of skin 0727 7512 Type 2 ketty betes mellitus without complication 860648615 [id number] MANISHA ELLIS MD [facility] [address] [place] [address] 03/02/2024 14:33:16 03/02/2024 15:20:10 Recurrent major depression 91188624 Anxiety disorder 0725244 06 Chronic pain syndrome 37 2977006 Insomnia 616719682 Type 2 ketty betes mellitus without complication 103180558 [id number] MANISHA ELLIS MD [address] [place] [place] [address] 05/27/2024 14:18:46 05/27/2024 15:14:54 Chronic pain syndrome 290091677 Adult heal th examination 467623727 Screening mammography 24 452134 Type 2 ketty betes mellitus without complication 935309298 Obesity 675556851 Chronic depression 75081 0009 Polycystic ovary syndrome 504166844 Vaginitis 91947473 Candidiasis of skin 4988 3006 Depressive disorder 3548 9007 Hypothyroidism 27158802 Chronic te nsion-type headache 986434854 Insomnia 143298165 Migraine 10904824 Gastroesop hageal reflux disease 111530155 Joint pain 85323520 Hyperlipidemia 36251321 Herpesvirus infection 23 050184 Seasonal a llergic rhinitis 780132087 Heart fail ure with reduced ejection fraction 015964754 Atheroscle rosis of coronary artery without angina pectoris 78433461320018 3 Active or passive immunization 896404767 [id number] MANISHA ELLIS MD [address] [place] [address] 07/04/2024 16:32:47 07/04/2024 17:18:00 Candidiasis of skin 36721943 Herpesvirus infection 23 757219 Type 2 ketty betes mellitus without complication 867538372 Health Concerns Section Related Observation LastModified by Organization Detai ls LastModified Time None Recorded Concern Status LastModified by Organization Details LastModified Time None Recorded Advance Directives Directive None Recorded Payers Encounter Date Sequence Insurance Name Policy Number Policy Mack Covered Member ID Mack Member ID Guarantor Name 01/06/2024 1 [place] [employer] Jammie Gottlieb [id number] Jammie Gottlieb 01/06/2024 2 [facility] (MEDICAID) Jammie Gottlieb [id number] Jammie Gottlieb 01/27/2024 1 [place] [facility] Jammie Gottlieb [id number] 1 Jammie Smiley Grayson 01/27/2024 2 [facility] (MEDICAID) Jammie Gottlieb [id number] Jammie Smiley Grayson 03/02/2024 1 [place] [facility] Jammie Zhouck [id number] 1 Jammie Smiley Grayson 03/02/2024 2 [facility] (MEDICAID) Jammie Zhouck [id number] Jammie Smiley Grayson 05/27/2024 1 [place] [facility] Jammie Zhouck [id number] Jammie Smiley Grayson 05/27/2024 2 [facility] (MEDICAID) Jammie Zhouck [id number] Jammie Smiley Grayson 07/04/2024 1 [place] [facility] Jammie Gottlieb [id number] 1 Jammie Smiley Grayson 07/04/2024 2 [facility] (MEDICAID) Jammie Zhouck [id number] Jammie Gottlieb Notes Date Note Type Note Provider Name and Address Organization Details Recorded Time 01/06/2024 text/html HPI Notes: Elliot mejias was admitted [facility] psych on 01/01 for depression and suicidal [...] the 2 mg pills twice a day. MANISHA ELLIS MD [address], [place], [address], [facility]. 01/06/2024 17:06:12 01/27/2024 text/html HPI Notes: Elliot mejias is here for f/u after recently admitted to [facility] for depression and SI. She initially [...] bleeding. MANISHA ELLIS MD [address], [place], [address], [facility]. 01/27/2024 15:33:11 03/02/2024 text/html HPI Notes: Here for follow up of multiple problems as noted below: Depression- Mood has been pretty good. BETY case managers called to let us know that she [...] but the left leg pain is terrible. MD [address], [place], [address], [facility]. 03/02/2024 16:37:09 05/27/2024 text/html HPI Notes: Here [...] today. MANISHA ELLIS MD [address], [place], [address], [facility]. 05/27/2024 17:16:04 07/04/2024 text/html HPI Notes: Patie nt c/o yeast infection under belly, she had Ketoconazole cream 2.0 % left, and wants to make sure that is what she should use. In the future she would like to remove excess skin, so she has less yeast infections. She does not have any vaginal symptoms at this time Discuss getting off some medications. Would like to stop metformin as it causes some loose stools. Would like to stop daily acyclovir, has not had recent cold sores. Some medications have changed. She sees Melvina Bond NP for her mood. Added 25 mg to the lamotrigine for a total of 225 mg daily, plus paxil, increased recently from 20 to 40 mg. Denies suicidal thoughts. DM- last A1C was 5.4 a month ago. Still taking trulicity. Portions are smaller. Next step is to decrease carbs and sugars. She is still walking. Since mood is better she is more active. MANISHA ELLIS MD [address], [place], [address], [facility]. 07/04/2024 17:17:57 OBGyn Episode No OBEpisode recorded.
--- OUTSIDE RECORDS SUMMARY | 2024-07-05 19:47 | XMS_ITS | Encounter Summary ---
Author Organization [facility] Address [facility] [place] [address] Care Team Providers Care Educational Paraprofessional Name Role Phone Edie Ellis MD Primary Care Provider [phone] Encounter Details Date Type Department Care Team (Latest Contact Info) Description 08/07/2023 6:55 AM EDT - 08/07/2023 10:20 AM EDT Hospital Encounter [place] [address] Jonathan Willson MD [facility] [place] [address] Dilated cardiomyopathy Discharge Disposition: Home Social History [...] F. The office scheduling phone number is [phone]. documented in this encounter Medications at Time [...] a day 03/12/2015 naloxone (Narcan) 4 mg/actuation [place], Non-Aerosol Once 03/10/2019 magnesium oxide (MAG-OX) 400 [...] note were not included. 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 Written consent obtained Will regional climate change analyst her dressings today JONATHAN WILLSON MD 08/07/2023 Pager [phone] Plan 1) Anticipate DFT test 2) Discharge [...] AM EDT Hospital Encounter Non-Invasive [place] [address] Arrived documented as of this encounter Procedures Procedure Name Priority Date/Time Associated Diagnosis Comments ELECTROPHYSIOLOGY PROCEDURE Routine 08/07/2023 8:37 AM EDT Dilated cardiomyopathy POCT GLUCOSE Routine 08/07/2023 7:46 AM EDT BMP W/FASTING GLUCOSE STAT 08/07/2023 7:38 AM EDT documented in this encounter Results * ELECTROPHYSIOLOGY PROCEDURE (08/07/2023 8:37 AM EDT) Anatomical Region Laterality Modality Other Impressions 08/07/2023 3:16 PM EDT : Acceptable ICD function. System impedance is acceptable VF not inducible (at implant and today) I was the cable machine operator, present for the entire procedure and personally edited this note JONATHAN WILLSON MD Narrative 08/07/2023 3:16 PM EDT SQ ICD Surveillance, Monitored Anesthesia Care Indication: Assessment of defibrillation thresholds, unable to induce VF at initial implant Operators: ??Reinaldo Connelly MD; Jonathan DIXON.[facility]. Procedure: The patient was brought to the Electrophysiology Lab in the fasting state and continuous electrocardiographic monitoring was instituted. ICD evaluation and DFT testing was performed under moderate sedation with monitored anesthesia care ICD Evaluation: [employer] Emblem A219 Device Serial Number: [id number] Battery: 100% to LISA A 10 joule [...] * POCT Glucose (08/07/2023 7:46 AM EDT) Glucose, POC 152 65 - 199 mg/dL [facility] Comment: Supplemental ranges: <140 mg/dL before meals <180 mg/dL all other times of the day Blood 08/07/2023 7:46 AM EDT 08/07/2023 7:46 AM EDT Jonathan Willson MD POINT OF CARE TEST O RDERABLES [facility] [place] [address] * (ABNORMAL) BMP w/fasting Glucose (08/07/2023 7:38 AM EDT) Glucose Fasting 165(H) 65 - 99 mg/dL [facility] Comment: ?Fasting* Glucose Interpretive [...] of Diabetes Mellitus, Position Statement from the [place] [employer]. ??Diabetes Care, Volume 33, Supplement 1, Nov 2009 Blood Urea Nitrogen 17 8 - 18 mg/dL [facility] Creatinine 0.52(L) 0.70 - 1.20 mg/dL [facility] Sodium 137 135 - 145 mmol/L [facility] Potassium 4.7 3.5 - 5.0 mmol/L [facility] Comment: Please note: ??Patients with WBC >100,000 may have falsely elevated Potassium levels. ??For accurate Potassium quantification in these patients send serum separator tube (gold top) for subsequent determinations. ??Contact the Clinical Chemistry Laboratory if there are any questions. Chloride 102 98 - 107 mmol/L [facility] Carbon Dioxide 26 22 - 31 mmol/L [facility] Anion Gap 9 5 - 15 mmol/L [facility] Calcium 9.1 8.5 - 10.5 mg/dL [facility] Est Glomerular Filtration Rate 115 >=60 mL/min/1. 73 m?? [facility] Comment: This patient's estimated [...] In Lab Hero Taylor MD CHEMISTRY ORDERABLES [facility] [place] [address] documented in this encounter Visit Diagnoses Diagnosis Dilated cardiomyopathy Other primary cardiomyopathies Dilated cardiomyopathy Other primary cardiomyopathies documented in this encounter Active and Recently Administered Medications Care Teams Educational Paraprofessional Relationship Specialty Start Date End Date Edie Ellis MD [facility] [address] [place] [address] PCP - General 10/15/10 documented as of this encounter
--- OUTSIDE RECORDS SUMMARY | 2024-07-05 19:47 | XMS_ITS | Encounter Summary ---
Author Organization [facility] [place] [address] Care Team Providers Care Family Medicine Chair Name Role Phone Edie Ellis MD Primary Care Provider [phone] Encounter Details Date Type Department Care Team (Late st Contact Info) Description 01/28/2024 Telephone Cardiology at [address] [phone] Libertad Krishnan Social History Tobacco Use Types Packs/Day Years Used Date Smoking Tobacco: Former Cigarettes 1 - 08/2022 Smokeless Tobacco: Never Comments:no more than 5 a da y - 01/02/2022 Alcohol Use Standard Drinks/Week Comments Yes 0 (1 standard drink = 0.6 oz pur e alcohol) rarely [facility] Inpatient Questions Answer Date Recorded Does Anyone [...] 01/28/2024 12:04 PM EST Request sent to [facility] for EKG strips and Cardiology consult notes from her recent inpatient stays, January 01 & January 14January 21. Her stay was unrelated to cardiac issues, but she had a couple abnormal EKG's and they did have cardiology consult with her while there. Libertad rKishnan EP Scheduling documented in this encounter Plan of Treatment Upcoming Encounters Date Type Department Care Team (Late st Contact Info) Description 07/09/2024 10:00 AM EDT Hospital Encounter Non-Invasive [place] [address] Arrived documented as of this encounter Visit Diagnoses Not on filedocumented in this encounter Care Teams Family Medicine Chair Relationship Specialty Start Date End Date Edie Ellis MD [address] [place] [address] PCP - General 10/15/10 documented as of this encounter
--- OUTSIDE RECORDS SUMMARY | 2024-07-05 19:47 | XMS_ITS | Encounter Summary ---
Author Organization [facility] Address [facility] [place] [address] Care Team Providers Care Md Physician Dermatologist Name Role Phone Edie Ellis MD Primary Care Provider [phone] Encounter Details Date Type Department Care Team (Late st Contact Info) Description 01/29/2024 4:00 PM EST Office Visit Cardiology at [address] [address] Andreina Schneider, YARDING ENGINEER [facility] [place] [address] ICD, [employer], single lead; HFrEF (heart failure with [...] not included. Cardiac Device Interrogation Jammie Gottlieb [id number] 01/28/2024 History: 48 y.o. 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 - Per additional review through [employer] for longQTc syndrome and QT drug interactions- wellbutrin and lamotrigine do not fit into specific risk categories, but that should not be construedas carrying no risk. - Follow up: SQ-ICD remote checks as scheduled (weekly), and in clinic yearly. Will forward to Dr. Willson for his review. Andreina Schneider APRN 01/29/24 Pager: [phone] documented in this encounter Plan of Treatment Upcoming Encounters Date Type Department Care Team (Late st Contact Info) Description 07/09/2024 10:00 AM EDT Hospital Encounter Non-Invasive [place] [address] Arrived documented as of this encounter Procedures Procedure Name Priority Date/Time Associated Diagnosis Comments EKG 12-LEAD Routine 01/29/2024 4:11 PM EST SQ ICD, [employer], single lead HFrEF (heart failure with reduced ejection fraction) documented in this encounter Results * EKG 12 Lead (01/29/2024 4:11 PM EST) Ventricular rate 75 BPM MUSE SYSTEM Atrial Rate 75 BPM MUSE SYSTEM P-R Interval 168 ms MUSE SYSTEM QRS Duration 78 ms MUSE SYSTEM Q-T Interval 426 ms MUSE SYSTEM QTC Calculated (Bezet) 475 ms MUSE SYSTEM Calculated P [place]uster 34 degrees MUSE SYSTEM Calculated R [place] 23 degrees MUSE SYSTEM Calculated T [place] 48 degrees MUSE SYSTEM INTERPRETATION Normal sinus rhythm Low voltage QRS Cannot rule out Septal infarct , age undetermined Abnormal ECG When compared with ECG of 03-AUG-2023 13:57, Vent. rate has decreased BY ??39 BPM Questionable change in initial forces of Septal leads Confirmed by Rohini GROVER, [facility] ([id number]) on 01/30/2024 1:33:36 PM MUSE SYSTEM 01/29/2024 4:11 PM EST 01/30/2024 1:33 PM EST Andreina Schneider APRN ECG ORDERABLES MUSE SYSTEM documented in this encounter Visit Diagnoses Diagnosis SQ ICD, [employer], single lead HFrEF (heart failure with reduced ejection fraction) documented in this encounter Care Teams Md Physician Dermatologist Relationship Specialty Start Date End Date Edie Ellis MD [facility] [address] [place] [address] PCP - General 10/15/10 documented as of this encounter
--- OUTSIDE RECORDS SUMMARY | 2024-07-05 19:47 | XMS_ITS | Encounter Summary ---
Author Organization [facility] [place] [address] Care Team Providers Care Behavior Interventionist Name Role Phone Edie Ellis MD Primary Care Provider [phone] Encounter Details Date Type Department Care Team (Late st Contact Info) Description 08/03/2023 1:30 PM EDT Office Visit Cardiology at [address] [address] Tila Elmore RN SQ ICD, [employer], single lead Social History Tobacco Use [...] Clinical Electrophysiology Device Service Note Jammie Gottlieb [id number] 08/03/2023 History: 48 y.o. female with a [...] AM EDT Hospital Encounter [place] [address] Arrived documented as of this encounter Procedures [...] (Bezet) 465 ms MUSE SYSTEM Calculated P [place] 49 degrees MUSE SYSTEM Calculated R [place] 20 degrees MUSE SYSTEM Calculated T [place] 50 degrees MUSE SYSTEM INTERPRETATION Sinus tachycardia Low voltage QRS Borderline ECG When compared with ECG of 14-JUL-2023 06:51, No significant change was found Confirmed by MD Norm, [place] ([id number]) on 08/03/2023 4:09:11 PM MUSE SYSTEM 08/03/2023 1:57 PM EDT 08/03/2023 4:09 PM EDT Unknown ECG ORDERABLES MUSE SYSTEM documented in this encounter Visit Diagnoses Diagnosis SQ ICD, [employer], single lead documented in this encounter Care Teams Behavior Interventionist Relationship Specialty Start Date End Date Edie Ellis MD [address] [place] [address] PCP - General 10/15/10 documented as of this encounter
--- OUTSIDE RECORDS SUMMARY | 2024-07-05 19:47 | XMS_ITS | Encounter Summary ---
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 Patient Name: Jammie Gottlieb Patient Performing Wool Hanker: Jonathan Willson Referring Provider: Hero Taylor Date of Procedure: 08/07/23 Arrival Time/ Case Time: 7:00 am / 8:30 am Check In Location: [employer] Desk 4W Date Patient was Called: 07/21/23 Procedure: Defibrillator Function Threshold Testing Company: [facility] Orders: Yes Lab Orders: Yes Anesthesia: [...] day , 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
--- OUTSIDE RECORDS SUMMARY | 2024-07-05 19:47 | XMS_ITS | Continuity of Care Document ---
Author Organization [facility] [place] [address] Assessment No assessment recorded. Plan of Treatment Reminders Order Date Submit Date Provider Last Modified By Organization Details Last Modified Time Details Appointments Follow Up 2023 04:20P M Not available Not available Not available Lab None recorded. Referral None recorded. Procedures None recorded. Surgeries None recorded. Imaging None recorded. Medication Orders ketoconaz ole 2 % topical cream 2023 024 [facility], [address] [place], [address], 07/04/2024 17:05:43 valacyclo vir 500 mg tablet 2023 024 [facility], [address] [place], [address], 07/04/2024 17:11:55 Patient TargetsNo targets recorded. Patient InstructionsNo instructions recorded. Reason for Referral Psychiatrist Referral for Re current major depression Jammie has longstanding recurrent depression, she has had suicidal attempts, and was recently hospitalized with suicidal intent. She has a lot of stressors with her own illness and a daughter with mental health issues as well. She has been seen by both horse racer and a prescriber in the past at [facility]. I am feeling that having a [...] XL once a day. Referring Physician: Edie Ellis [facility] Medicine, Encounter Date: 01/06/2024 Urologist Referral for Urina ry incontinence Worsening incontinence. S/p hysterectomy. 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 Accoun t #: [id number] Status : REG CLI Primar y Care Provid er: Edie Ellis M.D. Date of Exam: 11/15 Sex: [...] signif icant change from prior exams. IMPRES IDRIS: BI-RAD S Catego ry 1, Negati ve [...] report may reinfo rce clinic al impres idris. Adenos is and dense breast s may obscur e an underl cynthia neopla sm. False positi ve report s averag e 6 to 10%. Patien t will receiv e a letter notify ing them of these result s. Ordere d By: Edie Ellis M.D. CC: ------ ------ ------ ------ ------ ------ ------ ------ ------ ------ ------ ------ - Dictat ed By: Marc Lao [id number] Transc ribed By: Sobia Montoya 7 This is privil eged, confid ential inform ation intend ed only for the provid er named. Any use or distri bution by any person other than this provid er is strict ly prohib ited. If you receiv e this report in error, please notify us immedi russly at [phone] and return the origin al report to us at the addres s above. Thank- you. [email or web address] [facility] [address], [place], [address], 06/07/2024 13:10:46 Result Notes None recorded. Problems Name Status Onset Date Resolution Date Notes Provider Name and Address Organization Details Recorded Time Hyperlipidemi a Active [address], [place], [address] , [facility] 4 17:39:18 Chronic tension-type headache Active 2005 Jessica light, [facility] 4 14:11:03 Polycystic ovary syndrome Active [address], [facility] [address] , [facility] 4 17:42:00 Recurrent major depression Active [address], [facility] [address] [place] [address] 3 21:49:59 Carpal tunnel syndrome of right wrist Active [address], [address] 3 21:56:06 Obesity Active [address], [address] 3 21:50:41 Steatosis of liver Active 2005 FIB4 score 0.51 2017, 0.86 [address], [address] 4 17:46:29 Type 2 diabetes mellitus without complication Active [address], [address] 3 21:49:31 Intolerance to lactose Active [address], [facility] [address] , [facility] 4 17:40:28 Chronic pain syndrome Active 2010 MME [address], [facility] [address] [place] [address] 4 17:43:50 Tachycardia Active [address], [facility] [address] [place] [address] 3 21:49:45 Atheroscleros is of coronary artery without angina pectoris Active 2012 Jessica Toussaint nadege, [facility] 4 14:10:47 Discharge from nipple Completed 201406/20/2015 Problem Code: N64.52; Problem Code Type: ICD-10; Not Available [facility] 3 05:12:22 Amenorrhea Completed 201406/20/2015 05/23/2015 - Comments only - Edie Ellis MD - and nipple discharge. Negative urine test in the office, but will check serum HCG , as well as prolactin level. Problem Code: N91.2; Problem Code Type: ICD-10; Not Available [facility] 3 05:12:23 Adult health examination Active [address], [facility] [address] , [facility] 4 17:32:17 Hypothyroidis m Active [address], [facility] [address] , [facility] 3 21:51:31 Hypomagnesemi a Active [address], [facility] [address] , [facility] 3 21:51:39 Arthralgia of the ankle and/or foot Completed 201511/12/2016 Problem Code: M25.572; Problem Code Type: ICD-10; Not Available [facility] 3 05:12:23 Nausea and vomiting Completed 201604/30/2017 [...] R11.2; Problem Code Type: ICD-10; Not Available [facility] 3 05:12:23 Dysuria Completed 201604/30/2017 04/23/2017 - Comments only - Edie Ellis MD - We will check urinalysis to be sure this is not UTI/pyeloneph ritis. Problem Code: R30.0; Problem Code Type: ICD-10; Not Available [facility] 3 05:12:23 Primary amenorrhea Completed 201610/02/2017 09/25/2017 [...] N91.0; Problem Code Type: ICD-10; Not Available [facility] 3 05:12:24 Acute bronchitis Completed 201610/09/2017 09/25/2017 - Comments only - Edie lElis MD - She has some wheezing on [...] J20.9; Problem Code Type: ICD-10; Not Available [facility] 3 05:12:24 Screening for malignant neoplasm of cervix Completed 201703/01/2018 Problem Code: Z12.4; Problem Code Type: ICD-10; Not Available [facility] 3 05:12:24 Tobacco user Active 2017 EDIE ELLIS MD [address], [place], [address] , [facility]. 3 21:49:37 Hypertrophic condition of skin Completed 201708/25/2018 08/20/2018 - Comments only - Edie Ellis MD - Sites are consistent with silver nitrate application with slight irritation. To avoid infection I suggested applying mupirocin Problem Code: L91.8; Problem Code Type: ICD-10; Not Available [facility] 3 05:12:24 Acute bronchitis Completed 201711/08/2018 10/25/2018 - Comments only - Edie Ellis MD - Persistent symptoms for 4 weeks, we will go ahead and start antibiotics, azithromycin given penicillin allergy Problem Code: J20.9; Problem Code Type: ICD-10; Not Available [facility] 3 05:12:24 Pain in left arm Active [address], [facility] [address] , [facility] 3 21:50:31 Posttraumatic stress disorder Active [address], [facility] [address] , [facility] 3 21:50:08 Fatigue Active [address], [facility] [address] , [facility] 3 21:52:27 Diarrhea Completed 201901/05/2020 12/22/2019 - [...] R19.7; Problem Code Type: ICD-10; Not Available [facility] 3 05:12:25 Herpesvirus infection Active 2019 Jessica light, [facility] 4 14:11:26 Disorder of external ear Completed 201903/08/2020 Problem Code: H60.10; Problem Code Type: ICD-10; Not Available [facility] 3 05:12:25 Lumbago with sciatica Active [address], [facility] [address] , [facility] 4 17:40:39 Pain of right shoulder joint Active 2021 MRI 12/[address], [place], [address] , [facility] 4 17:41:50 Dysuria Completed 202102/03/2022 01/20/2022 - Comments only - Edie Ellis MD - and urinary incontinence, referral back to urology. Problem Code: R30.0; Problem Code Type: ICD-10; Not Available [facility] 3 05:12:26 Muscle pain Active 2021 deep muscle biopsy, awaiting results. 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 MD [address], [place], [address] , [facility] 4 17:41:01 Displacement of cervical intervertebra l disc Active 2021 Jessica light, [facility] 4 14:11:08 Pre-surgery evaluation Completed 202104/23/2022 [...] Z01.818; Problem Code Type: ICD-10; Not Available [facility] 3 05:12:27 Anxiety disorder Active [address], [place], [address] , [facility] 4 17:32:23 Seasonal allergic rhinitis Active [address], [place], [address] , [facility] 4 17:42:04 Urinary incontinence Active [address], [place], [address] , [facility] 3 21:49:24 Dyspnea Completed 202110/06/2022 Problem Code: R06.09; Problem Code Type: ICD-10; Not Available [facility] 3 05:12:28 Screening mammography Completed 202111/03/2023 Problem Code: Z12.31; Problem Code Type: ICD-10; MD [address], [address] , [facility] 3 21:49:52 Chondromalaci a of left knee Active [address], [address] 4 17:32:37 Acute vaginitis Completed 202210/06/2023 Problem Code: N76.0; Problem Code Type: ICD-10; Removal Reason: resolved MD [address], [address] 3 12:54:07 Dyspnea Completed 202006/17/2021 Problem Code: R06.02; Problem Code Type: ICD-10; Not Available [facility] 3 05:12:35 Lactose intolerance Completed 200408/19/2023 Not Available [facility] 3 05:12:36 Dysthymia Completed 201705/16/2019 Problem Code: F34.1; Problem Code Type: ICD-10; Not Available [facility] 3 05:12:36 Acute upper respiratory infection Completed 201903/22/2020 Problem Code: J06.9; Problem Code Type: ICD-10; Not Available [facility] 3 05:12:38 Low back pain Completed 201610/25/2021 Problem Code: M54.5; Problem Code Type: ICD-10; Not Available [facility] 3 05:12:38 Right upper quadrant pain Completed 201607/30/2017 Problem Code: R10.11; Problem Code Type: ICD-10; Not Available [facility] 3 05:12:38 Anxiety Completed 200408/19/2023 Problem Code: F41.8; Problem Code Type: ICD-10; Not Available [facility] 3 05:12:39 Pelvic and perineal pain Completed 201810/03/2019 Problem Code: R10.2; Problem Code Type: ICD-10; Not Available [facility] 3 05:12:39 Atrial flutter Completed 202006/17/2021 Problem Code: I48.92; Problem Code Type: ICD-10; Not Available [facility] 3 05:12:39 Hyperglycemia due to type 2 diabetes mellitus Completed 200508/19/2023 12/18/2017 - Comments only - Edie Ellis MD - check labs prior to follow up visit. Problem Code: E11.65; Problem Code Type: ICD-10; Not Available [facility] 3 05:12:40 Splenomegaly Completed 200608/19/2023 Not Available [facility] 3 05:12:40 Morbid obesity Completed 200408/19/2023 Not Available [facility] 3 05:12:40 Derangement of left knee Completed 202204/15/2023 Problem Code: M23.92; Problem Code Type: ICD-10; Not Available [facility] 3 05:12:41 Pain of left shoulder joint Completed 201805/06/2021 Problem Code: M25.512; Problem Code Type: ICD-10; Not Available [facility] 3 05:12:41 Noninflammato ry disorder of the vagina Completed 202204/20/2023 Problem Code: N89.8; Problem Code Type: ICD-10; Not Available [facility] 3 05:12:42 Pelvic and perineal pain Completed 201607/30/2017 Problem Code: R10.2; Problem Code Type: ICD-10; Not Available [facility] 3 05:12:42 Dysuria Completed 202107/09/2022 Problem Code: R30.9; Problem Code Type: ICD-10; Not Available [facility] 3 05:12:42 Polycystic ovaries Completed 200508/19/2023 Not Available [facility] 3 05:12:43 Coronary arteriosclero sis Completed 201208/19/2023 Not Available [facility] 3 05:12:43 Localized edema Completed 201607/30/2017 Problem Code: R60.0; Problem Code Type: ICD-10; Not Available [facility] 3 05:12:44 Diarrhea Completed 201604/10/2017 Problem Code: R19.7; Problem Code Type: ICD-10; Not Available [facility] 3 05:12:44 Pain of right wrist Completed 202104/15/2023 Problem Code: M25.531; Problem Code Type: ICD-10; Not Available [facility] 3 05:12:45 Nicotine dependence Completed 201708/19/2023 10/03/2019 - Comments only - Edie Ellis MD - congratulated on quitting. Problem Code: Z87.891; Problem Code Type: ICD-10; Not Available [facility] 3 05:12:45 Headache Completed 200508/19/2023 Not Available [facility] 3 05:12:45 Cyst of ovary Completed 201607/30/2017 Problem Code: N83.20; Problem Code Type: ICD-10; Not Available [facility] 3 05:12:47 Diabetes mellitus Completed 200508/19/2023 08/08/2015 [...] do so at this time. Not Available [facility] 3 05:12:48 Fatigue Completed 201508/08/2016 Problem Code: R53.83; Problem Code Type: ICD-10; MD [address], [facility] [address] , [facility] 3 21:52:27 Generalized anxiety disorder Completed 200408/19/2023 10/23/2017 - Comments only - Edie Ellis MD - clonazepam is renewed for 8 weeks. Problem Code: F41.1; Problem Code Type: ICD-10; Not Available [facility] 3 05:12:49 Carpal tunnel syndrome Completed 201108/19/2023 Problem Code: 354.0; Problem Code Type: ICD-9; MD [address], [place], [address] , [facility] 3 21:56:13 Pneumocystosi s Completed 202111/06/2022 Problem Code: B59; Problem Code Type: ICD-10; Not Available [facility] 3 05:12:50 Acute pharyngitis Completed 201510/29/2016 Problem Code: J02.9; Problem Code Type: ICD-10; Not Available [facility] 3 05:12:50 Dysfunctional uterine bleeding Completed 200410/03/2019 Not Available [facility] 3 05:12:51 Active immunization Completed 201709/29/2019 Problem Code: Z23; Problem Code Type: ICD-10; Not Available [facility] 3 05:12:51 Pain of left knee joint Completed 202208/19/2023 Problem Code: M25.562; Problem Code Type: ICD-10; Not Available [facility] 3 05:12:52 Pain in right arm Completed [...] MRI of cervical spine. She should call [facility] neurology to see if she can be on their cancellation list. Labs were drawn today for CPK, inflammatory markers. Reminded her that smoking lowers pain threshold. Problem Code: M79.601; Problem Code Type: ICD-10; Not Available [facility] 3 05:12:53 Palpitations Completed 202104/15/2023 Problem Code: R00.2; Problem Code Type: ICD-10; Not Available [facility] 3 05:12:54 Palpitations Completed 201805/16/2019 Problem Code: R00.2; Problem Code Type: ICD-10; Not Available [facility] 3 05:12:54 Glycosuria Completed 202204/15/2023 Problem Code: R81; Problem Code Type: ICD-10; Not Available [facility] 3 05:12:55 Mixed anxiety and depressive disorder Completed 200408/19/2023 10/05/2015 - Comments only - Edie Ellis MD - I reminded her that every time she avoids a situation that gives her anxiety, she increases her anxiety, and that she should continue to try exposure therapy. Not Available [facility] 3 05:12:56 Exposure to sexually transmissible disorder Completed 201406/20/2015 Problem Code: Z20.2; Problem Code Type: ICD-10; Not Available [facility] 3 05:12:57 Syncope and collapse Completed 201902/11/2021 Problem Code: R55; Problem Code Type: ICD-10; Not Available [facility] 3 05:12:57 Dyspnea Completed 201904/15/2023 Problem Code: R06.02; Problem Code Type: ICD-10; Not Available [facility] 3 05:12:58 Severe obesity Completed 200408/19/2023 08/24/2020 - Comments only - Edie Ellis MD - She is congratulated on her recent weight loss. Problem Code: E66.01; Problem Code Type: ICD-10; Not Available [facility] 3 05:12:58 Menopause present Completed 201801/11/2020 Problem Code: N95.1; Problem Code Type: ICD-10; Not Available [facility] 3 05:12:59 Exposure to communicable disease Completed 201910/05/2020 Problem Code: Z20.828; Problem Code Type: ICD-10; Not Available [facility] 3 05:13:00 Pain of breast Completed 202104/15/2023 Problem Code: N64.4; Problem Code Type: ICD-10; Not Available [facility] 3 05:13:01 Exposure to communicable disease Completed 202111/06/2022 Problem Code: Z20.828; Problem Code Type: ICD-10; Not Available [facility] 3 05:13:02 Recurrent herpes simplex Active [address], [place], [address] , [facility]. 3 12:52:56 Herniation of nucleus pulposus of cervical intervertebra l disc Active 2021 cervical spine MD [address], [place], [address] , [facility]. 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 4 20:14:59 Cardiac defibrillator in situ Active [address], [facility] [address] , [facility] 3 22:00:00 Localized infection of skin AND/OR subcutaneous tissue Completed 202208/28/2023 Problem Code: L08.9; Problem Code Type: ICD-10; Not Available [facility] 4 05:38:00 Injury due to suicide attempt Completed 202201/05/2024 Problem Code: T14.91xD; Problem Code Type: ICD-10; MD [address], [address] 4 17:42:23 Suicidal Active 2023 recurrent MD [address], [address] 4 17:43:22 Heart failure with reduced ejection fraction Active 2022 Jessica light, [facility] 4 14:11:13 Problem Notes None recorded. Procedures Surgical History Date Name Laterality Status Provider Name and Address Organization Details Recorded Time 0 hysterectomy completed MD Gonzalo [address], [address] 12/09/2023 20:53:39 Imaging Results None recorded. Procedure Notes None recorded. Medical Equipment None Reported. Allergies Allergen ID Allergen Name Allergen Category Reaction Reaction Severity Criticality Documentation Date Start Date Code Code System Note Provider Name and Address Organization Details Recorded Time 89615 Medicinal product containin g penicilli n and acting as antibacte rial agent (product) medicatio n anaphylax is Not available Not available 10/02/20232004 06515 05 SNOMED anaph ylact ic shock Aller gyCod e: '8340 61'; Aller gyNam e: 'PENI CILLI N'; Aller gyCon ceptT ype: 'RX Norm' ; Aller gyRea ction : 'anap hylac tic shock '; Not Available [facility] 3 16:14:27 11167 Substance with sulfonami de structure and antibacte rial mechanism of action (substanc e) medicatio n diarrhea nausea mild mild low 10/07/2023 86726 8003 WESTON LYNN LPN null, [place] - [facility]. 3 11:21:44 Medications Name Sig Start Date [...] Available promethaz ine 25 mg tablet 1tab [id number] 03/16 completed Not Available Not Available Not [...] by mouth once a day 11/27 completed [facility] cardiolo gy Not Available Not Available Not [...] 2 patches, change q3d. Fill only at [facility] 2014 active Not Available Not Available Not [...] by mouth once a day 11/06 completed [facility] cardiolo gy Not Available Not Available Not [...] TABLET BY MOUTH TWICE A DAY active [facility] cardiolo gy Not Available Not Available Not [...] BY MOUTH EVERY DAY 07/04 completed Melvina Sorensen Not Available Not Available Not Available Trintelli [...] Last Updated DateTime 165.1 cm 30.1 kg/m2 82271.2 2 g 97.9 [degF] 96 % 96 % 16 /min 86 /min 110 mm[Hg] 68 mm[Hg] ELLIE LYNN LPN [facility] 16:53:19 Social History Question Answer Notes LastModified by Organizat ion Details LastModified Time Tobacco Smoking Status Former Smoker ELLIE LYNN LPN [facility] 05/27/2024 14:30:57 When Did You Quit [...] And Wanted Help? (For Example, If You Allen Very Nervous, Lonely, Or Blue; Got Sick [...] DM Type II MGM: CVA PGF: CAD, OR lots of DMII on both sides. Medical History No medical history recorded. Gynecological HistoryNo gynecological history recorded. Obstetrics History GPAL:G 0 P 0 0 0 0 Immunizations Vaccine Type Date Status Provider Name and Address Organization Details Recorded Time Hep B, adult 05/27/2024 completed EDIE ELLIS MD [address], [place], [address], [facility] 05/27/2024 16:56:26 Td (adult), 5 Lf tetanus toxoid, preservative free, adsorbed 03/04/2019 completed Not Available [facility] 10/02/2023 05:15:00 Tdap 02/08/2009 completed Not Available [facility] 05:15:00 Novel Ankdqvrcb-[id number], all formulations 10/08/2009 completed Not Available [facility] 10/02/2023 05:15:00 Td(adult) unspecified formulation 03/27/2003 completed Not Available [facility] 10/02/2023 05:15:00 Influenza, split virus, trivalent, preservative 09/05/2015 completed Not Available [facility] 10/02/2023 05:15:00 Influenza, split virus, trivalent, preservative 10/29/2016 completed Not Available [facility] 10/02/2023 05:15:00 Influenza, split virus, quadrivalent, PF 08/08/2019 completed Not Available [facility] 10/02/2023 05:15:01 Influenza, split virus, quadrivalent, PF 08/24/2020 completed Not Available [facility] 10/02/2023 05:15:01 Influenza, split virus, quadrivalent, PF 09/29/2022 completed Not Available [facility] 10/02/2023 05:15:01 Influenza, split virus, quadrivalent, preservative 08/11/2018 completed Not Available [facility] 10/02/2023 05:15:01 Influenza, split virus, quadrivalent, preservative 08/27/2017 completed Not Available [facility] 10/02/2023 05:15:01 COVID-19, mRNA, LNP-S, PF, 30 mcg/0.3 mL dose 06/17/2021 completed Not Available [facility] 10/02/2023 05:15:01 COVID-19, mRNA, LNP-S, PF, 30 mcg/0.3 mL dose 07/09/2021 completed Not Available [facility] 10/02/2023 05:15:01 Pneumococcal conjugate PCV20, polysaccharide BLC045 conjugate, adjuvant, PF 09/22/2022 completed Not Available [facility] 10/02/2023 05:15:02 COVID-19, mRNA, LNP-S, PF, 30 mcg/0.3 mL dose, leticia-sucrose 04/16/2022 completed Not Available [facility] 10/02/2023 05:15:02 COVID-19, mRNA, LNP-S, bivalent, PF, 30 mcg/0.3 mL dose 09/22/2022 completed Not Available [facility] 10/02/20 05:15:02 pneumococcal polysaccharide PPV23 03/27/2003 completed Not Available [facility] 2022 05:15:02 Hep B, adult 02/15/2018 completed Not Available [facility] 10/02/2023 05:15:02 Hep B, adult 04/16/2018 completed Not Available [facility] 10/02/2023 05:15:02 influenza, unspecified formulation 07/28/2014 completed Not Available [facility] 10/02/2023 05:15:02 Influenza, split virus, quadrivalent, PF 08/28/2023 completed Not Available [facility] 12/04/2023 05:33:21 Past Encounters Encounter ID Performer Location Encounter Start Date Encounter Closed Date Diagnosis/Indication Diagnosis SNOMED-CT Code [id number] EDIE ELLIS MD [place] [address] [place] [facility] [place] [address] 07/04/2024 16:32:47 07/04/2024 17:18:00 Candidiasis of skin [id number] Herpesvirus infection 23 095996 Type 2 ketty betes mellitus without complication [id number] Health Concerns Section Related Observation LastModified by Organization Detai ls LastModified Time None Recorded Concern Status LastModified by Organization Details LastModified Time None Recorded Payers Encounter Date Sequence Insurance Name Policy Number Policy Mack Covered Member ID Mack Member ID Guarantor Name 07/04/2024 1 [place]: [employer] Jammie Gottlieb [id number] 1 Jammie Gottlieb 07/04/2024 2 [facility] (MEDICAID) Jammie Gottlieb [id number] Jammie Gottlieb Notes Date Note Type Note Provider Name and Address Organization Details Recorded Time 07/04/2024 text/html HPI Notes: Patie nt c/o [...] mood is better she is more active. EDIE ELLIS MD [address], [place], [address], [place] - [facility]. 07/04/2024 17:17:57 OBGyn Episode No OBEpisode recorded.
--- OUTSIDE RECORDS SUMMARY | 2024-07-05 19:47 | XMS_ITS | Encounter Summary ---
[place] [address] Care Team Providers Care Paint Department Supervisor Name Role Phone Edie Ellis MD Primary Care Provider [phone] Encounter Details Date Type Department Care Team (Latest Contact Info) Description 04/10/2024 10:00 AM EDT - 04/10/2024 11:59 PM EDT Hospital Encounter [place] [address] Discharge Disposition: Home Social History Tobacco Use [...] a day 03/12/2015 naloxone (Narcan) 4 mg/actuation [place], Non-Aerosol Once 03/10/2019 magnesium oxide (MAG-OX) 400 [...] AM EDT Hospital Encounter [place] [address] Arrived documented as of this encounter Procedures [...] on filedocumented in this encounter Care Teams Paint Department Supervisor Relationship Specialty Start Date End Date Edie Ellis MD [address] [place] [address] [address] [place] [address] PCP - General 10/15/10 documented as of this encounter
--- OUTSIDE RECORDS SUMMARY | 2024-07-05 19:47 | XMS_ITS | Clinical Summary ---
Author Organization [facility] Address [facility] [place] [address] Care Team Providers Care Side Seam Tender Name Role Phone Edie Ellis MD Primary Care Provider [phone] Allergies Active Allergy Reactions Criticality Noted Date [...] day 03/12/2015 Active naloxone (Narcan) 4 mg/actuation [place], Non-Aerosol Once 03/10/2019 Active cholecalciferol, Vitamin D3, [...] Problem Noted Date Diagnosed Date SQ ICD, [employer], single lead 3 Overview (07/15/2023): Steel Rule Die Maker Apprentice Model # Serial # Generator [employer] Scientific [id number] Ventricular Lead [employer] Scientific [id number] HFrEF (heart failure with reduced ejection fract ion) 07/14/2023 Chronic pain in right shoulder 07/03/2023 T2DM 06/09/2021 Essential hypertension 06/09/2021 Syncope 06/09/2021 Post laminectomy syndrome 03/20/2015 Cardiomyopathy 03/30/2014 Atrial fibrillation 03/30/2014 Lumbar radiculopathy 12/08/2011 Encounters Date Type Department Care Team Description 04/10/2024 10:00 AM EDT - 04/10/2024 11:59 PM EDT Hospital Encounter [place] [address] Discharge Disposition: Home from Last 3 Months Immunizations Name Administration [...] AM EDT Hospital Encounter [place] [address] Arrived Health Maintenance Due Date [...] history exists Medical Devices Implanted Type Area Steel Rule Die Maker Apprentice Device Identifier Shelf Expiration Date Model / Serial / Lot Bsx: [id number]: [id number]/22/2 023 Implanted: by Jonathan Willson MD (Quantity not on file) Defibrillator Chest Wall [employer] A219 / [id number] / Bsx: [id number]: [id number]/22/2 023 Implanted: by Jonathan Willson MD (Quantity not on file) Lead Heart [employer] 3501 / [id number] / Explanted Type Area Steel Rule Die Maker Apprentice Device Identifier Shelf Expiration Date Model / Serial / Lot Lead,Trial,St,. 0014,Stylt,50cm ([id number]) - [id number] Implanted:Qty: 1 on 06/03/2012 at [facility] Explanted:Qty: 1 on 06/03/2012 IMPLANTS Left: Back DO NOT USE [employer] - [id number] 04/03/2014 [id number] / [id number] / Description:Per note in charity t. Lead looks to have been pulled same day. Had radiologist look at CT and confirmed no leads in place. Farncis Garcia RT(R)(CT)(MR)(ARRT), MRI Safety Technologist, 04/09/2021 Procedures Procedure Name Priority Date/Time Associated Diagnosis Comments CARDIAC DEVICE CHECK - REMOTE Routine 05/17/2024 1:41 PM EDT BMP W/FASTING GLUCOSE STAT 08/07/2023 7:38 AM EDT from Last 3 Months or Most Recently Relevant to Health Maintenance Results * Cardiac Device Check - Remote (05/17/2024 1:41 PM EDT) Anatomical Region Laterality Modality Other 05/17/2024 1:41 PM EDT Hero Taylor MD IMPLANTABLE CARDIAC DEVICE * (ABNORMAL) BMP w/fasting Glucose (08/07/2023 7:38 AM EDT) Glucose Fasting 165(H) 65 - 99 mg/dL [facility] Comment: ?Fasting* Glucose Interpretive Criteria [...] of Diabetes Mellitus, Position Statement from the [place] Diabetes Association. ??Diabetes Care, Volume 33, Supplement 1, Nov 2009 Blood Urea Nitrogen 17 8 - 18 mg/dL [facility] Creatinine 0.52(L) 0.70 - 1.20 mg/dL [facility] Sodium 137 135 - 145 mmol/L [facility] Potassium 4.7 3.5 - 5.0 mmol/L [facility] Comment: Please note: ??Patients with WBC >100,000 may have falsely elevated Potassium levels. ??For accurate Potassium quantification in these patients send serum separator tube (gold top) for subsequent determinations. ??Contact the Clinical Chemistry Laboratory if there are any questions. Chloride 102 98 - 107 mmol/L [facility] Carbon Dioxide 26 22 - 31 mmol/L [facility] Anion Gap 9 5 - 15 mmol/L [facility] Calcium 9.1 8.5 - 10.5 mg/dL [facility] Est Glomerular Filtration Rate 115 >=60 mL/min/1. 73 m?? [facility] Comment: This patient's estimated GFR [...] Lab Hero Taylor MD CHEMISTRY ORDERABLES [facility] [place] [address] from Last 3 Months or Most Recently Relevant to Health Maintenance Advance Directives Documents on File Type Date Recorded Patient Clinical Nursing Assistant Expl anation Personal Clinical Nursing Assistant 07/03/2023 3:24 PM YONI GOTTLIEB/SPOUSE * Attempt [...] is based on Patients wishes. Care Teams Side Seam Tender Relationship Specialty Start Date End Date Edie Ellis MD [facility] [address] [place] [address] PCP - General 10/15/10
--- OUTSIDE RECORDS SUMMARY | 2024-07-05 19:47 | XMS_ITS | Encounter Summary ---
Author Organization [facility] [place] [address] Care Team Providers Care Capsule Filler Name Role Phone Edie Ellis MD Primary Care Provider [phone] Encounter Details Date Type Department Care Team (Late st Contact Info) Description 07/06/2029 11:59 PM EDT Anesthesia Event [place] [address] Emmanuel Duran MD [facility] [place] [address] Anesthesia Record Procedure Summary Procedure Name Responsible [...] pocket 07/14/23 0805 by Alecia Clark, RN documented in this encounter Social History [...] 3:48 PM EDT Pre-Anesthesia Evaluation for: Jammie Gottlieb a 48 y.o. female. Procedure(s): ARTHROSCOPY SHOULDER, SUBACROMIAL DECOMPRESSION (WRVU 3) MODIFIER [facility] Patient Active Problem List Diagnosis Date Noted SQ ICD, [employer], single lead 07/15/2023 HFrEF (heart failure [...] ARRAY, EPIDURAL performed by CARINE CHATTERJEE at [facility] MAIN OR PRO UNLISTED PROCEDURE, MUSCULOSKELETAL SYSTEM, [...] EF and syncope (last occurred in October), Huayi ICD placed 07/14/23 for primary prevention: entresto, [...] AM EDT Hospital Encounter Non-Invasive [place] [address] Arrived documented as of this encounter Visit Diagnoses Not on filedocumented in this encounter Care Teams Capsule Filler Relationship Specialty Start Date End Date Edie Ellis MD [address] [place] [address] PCP - General 10/15/10 documented as of this encounter
--- OUTSIDE RECORDS SUMMARY | 2024-07-05 19:47 | XMS_ITS | Encounter Summary ---
[place] [address] Care Team Providers Care Soil Technologist Name Role Phone Edie Ellis MD Primary Care Provider [phone] Encounter Details Date Type Department Care Team [...] AM EDT Hospital Encounter Non[place] [address] Arrived documented as of this encounter Visit Diagnoses Not on filedocumented in this encounter Care Teams Soil Technologist Relationship Specialty Start Date End Date Edie Ellis MD [address] [place] [address] PCP - General 10/15/10 documented as of this encounter
--- OUTSIDE RECORDS SUMMARY | 2024-07-05 19:47 | XMS_ITS | Encounter Summary ---
Author Organization [facility] Address [facility] [place] [address] Care Team Providers Care Busboy Name Role Phone Edie Ellis MD Primary Care Provider [phone] Encounter Details Date Type Department Care Team (Late st Contact Info) Description 08/03/2023 Orders Only Cardiology at [address] [address] Leelee Miller PA [facility] [place] [address] ICD, [employer], single lead; Skin wound from surgical [...] AM EDT Hospital Encounter Non[place] [address] Arrived documented as of this encounter Visit Diagnoses Diagnosis SQ ICD, [employer], single lead Skin wound from surgical incision documented in this encounter Care Teams Busboy Relationship Specialty Start Date End Date Edie Ellis MD [facility] [address] [place] [address] PCP - General 10/15/10 documented as of this encounter
--- OUTSIDE RECORDS SUMMARY | 2024-07-05 19:47 | XMS_ITS | Encounter Summary ---
Author Organization [facility] [place] [address] Care Team Providers Care Special Event Assistant Name Role Phone Edie Ellis MD Primary Care Provider [phone] Encounter Details Date Type Department Care Team [...] AM EDT Hospital Encounter Non-Invasive [place] [address] Arrived documented as of this encounter Visit Diagnoses Not on filedocumented in this encounter Care Teams Special Event Assistant Relationship Specialty Start Date End Date Edie Ellis MD [address] [facility] 1 [place] [address] PCP - General 10/15/10 documented as of this encounter
--- OUTSIDE RECORDS SUMMARY | 2024-07-05 19:47 | XMS_ITS | Encounter Summary ---
Author Organization [facility] [place] [address] Care Team Providers Care Needle Felt Making Machine Operator Name Role Phone Edie Ellis MD Primary Care Provider [phone] Encounter Details Date Type Department Care Team (Late st Contact Info) Description 02/08/2024 Telephone Cardiology at [address] [phone] Andreina Gardner Social History Tobacco Use Types [...] AM EDT Hospital Encounter Non[place] [address] Arrived documented as of this encounter Visit Diagnoses Not on filedocumented in this encounter Care Teams Needle Felt Making Machine Operator Relationship Specialty Start Date End Date Edie Ellis MD [address] [place] [address] PCP - General 10/15/10 documented as of this encounter
--- OUTSIDE RECORDS SUMMARY | 2024-07-05 19:47 | XMS_ITS | Encounter Summary ---
[place] [address] Care Team Providers Care Marketing Analytics Manager Name Role Phone Edie Ellis MD Primary Care Provider [phone] Encounter Details Date Type Department Care Team (Latest Contact Info) Description 10/13/2023 10:00 AM EST - 10/13/2023 11:59 PM EST Hospital Encounter [place] [address] Discharge Disposition: Home Social History Tobacco Use [...] a day 03/12/2015 naloxone (Narcan) 4 mg/actuation [place], Non-Aerosol Once 03/10/2019 magnesium oxide (MAG-OX) 400 [...] Hospital Encounter [place] [address] Arrived documented as of this encounter Procedures [...] on filedocumented in this encounter Care Teams Marketing Analytics Manager Relationship Specialty Start Date End Date Edie Ellis MD [address] [facility] 1 [place] [address] PCP - General 10/15/10 documented as of this encounter
--- OUTSIDE RECORDS SUMMARY | 2024-07-05 19:47 | XMS_ITS | Encounter Summary ---
Author Organization [facility] Address [facility] [place] [address] Care Team Providers Care Regional Sales Trainer Name Role Phone Edie Ellis MD Primary Care Provider [phone] Encounter Details Date Type Department Care Team (Late st Contact Info) Description 03/09/2024 10:00 AM EDT Office Visit Cardiology at [address] [address] Jonathan Willson MD [facility] [place] [address] ICD (implantable cardioverter-defibril lator) in place Social [...] Follow Up Patient ID Jammie Gottlieb [id number] Jammie Gottlieb is following up in EP [...] Patient Active Problem List Diagnosis SQ ICD, [employer], single lead Order Administrator Model # Serial # Generator [employer] [id number] [id number] Ventricular Lead [employer] 3501 [id number] HFrEF (heart failure with reduced ejection fraction) [...] Twice a day naloxone (Narcan) 4 mg/actuation [place], Non-Aerosol Once magnesium oxide (MAG-OX) 400 mg [...] device Neurological: Mental Status: She is alert. Mela Gottlieb is seen in the EP clinic [...] device clinic JONATHAN WILLSON MD Cardiac Electrophysiology [facility] T: [phone] F: [phone] 20 minutes were spent preparing to see [...] AM EDT Hospital Encounter Non-Invasive [place] [address] Arrived documented as of this encounter Visit Diagnoses Diagnosis ICD (implantable cardioverter-defibrillator) in place documented in this encounter Care Teams Regional Sales Trainer Relationship Specialty Start Date End Date Edie Ellis MD [facility] [address] [place] [address] PCP - General 10/15/10 documented as of this encounter
--- OUTSIDE RECORDS SUMMARY | 2024-07-05 19:47 | XMS_ITS | Encounter Summary ---
[place] [address] Care Team Providers Care Production Supv Name Role Phone Edie Ellis MD Primary Care Provider [phone] Encounter Details Date Type Department Care Team [...] AM EDT Hospital Encounter Non-[place]vasive [place] [address] Arrived documented as of this encounter Visit Diagnoses Not on filedocumented in this encounter Care Teams Production Supv Relationship Specialty Start Date End Date Edie Ellis MD [address] [place] [address] PCP - General 10/15/10 documented as of this encounter
--- OUTSIDE RECORDS SUMMARY | 2024-07-05 19:47 | XMS_ITS | Encounter Summary ---
Author Organization [facility] [place] [address] Care Team Providers Care Business Risk Consultant Name Role Phone Edie Ellis MD Primary Care Provider [phone] Encounter Details Date Type Department Care Team (Late st Contact Info) Description 07/20/2023 1:00 PM EDT TH Visit (TeleHealth) [place] [address] Social History Tobacco Use Types Packs/Day Years [...] AM EDT Hospital Encounter Non[place] [address] Arrived documented as of this encounter Visit Diagnoses Not on filedocumented in this encounter Care Teams Business Risk Consultant Relationship Specialty Start Date End Date Edie Ellis MD [facility] [address] [place] [address] PCP - General 10/15/10 documented as of this encounter
--- OUTSIDE RECORDS SUMMARY | 2024-07-05 19:47 | XMS_ITS | Encounter Summary ---
Author Organization [place] [address] Care Team Providers Care Mobile Home Laborer Name Role Phone Edie Ellis MD Primary Care Provider [phone] Encounter Details Date Type Department Care Team (Late st Contact Info) Description 08/07/2023 8:36 AM EDT Anesthesia Event [place] [address] Saundra Smith MD [facility] [place] [address] Coty Magallon MD [facility] [place] [address] Anesthesia Record Procedure Summary Procedure Name Responsible [...] / Location: EP B-LAB ROOM 4 / [facility] EP LABS Anesthesia Start: 835 Anesthesia Stop: 907 Procedure: ELECTROPHYSIOLOGY PROCEDURE Diagnosis: Dilated cardiomyopathy (Dilated cardiomyopathy [I42.0]) Providers: Jonathan Willson MD Responsible Provider: Saundra Smith MD Anesthesia Type: MAC ASA Status: 3 All Anesthesia Providers: Anesthesiologist: Saundra Smith MD Hot Box Checker: Coty Mgaallon MD Vitals Value Taken Time BP 98/82 08/07/23 0945 Temp 36.1 ??C (97 ??F) 08/07/23 0904 Pulse 88 08/07/23 0957 Resp 21 08/07/23 0957 SpO2 96 % 08/07/23 1003 Pain Level 0 08/07/23 0945 Vitals shown include unvalidated device data. Patient Location: PACU/[facility] Level of Consciousness: Awake and Alert Pain [...] List Diagnosis Date Noted ??? SQ ICD, [employer], single lead 07/15/2023 ??? HFrEF (heart failure [...] ARRAY, EPIDURAL performed by CARINE CHATTERJEE at [facility] MAIN OR ??? PRO UNLISTED PROCEDURE, MUSCULOSKELETAL [...] AM EDT Hospital Encounter Non-[place] [address] Arrived documented as of this encounter Visit [...] mg documented in this encounter Care Teams Mobile Home Laborer Relationship Specialty Start Date End Date Edie Ellis MD [address] [facility] 1 [place] [address] PCP - General 10/15/10 documented as of this encounter
--- OUTSIDE RECORDS SUMMARY | 2024-07-05 19:47 | XMS_ITS | Encounter Summary ---
Author Organization [facility] Address [facility] [place] [address] Care Team Providers Care Oncologist Name Role Phone Edie Ellis MD Primary Care Provider [phone] Reason for Visit * Reason Onset Date Comments Pre Procedure Call 09/08/2023 Encounter Details Date Type Department Care Team (Late st Contact Info) Description 09/08/2023 Telephone [place] [address] Shabbir Kaminski MD [facility] [place] [address] Pre Procedure Call Social History Tobacco Use [...] left a message for patient to call [phone] directly and schedule surgery with Dr. KAMINSKI. documented in this encounter Plan of Treatment Upcoming Encounters Date Type Department Care Team (Late st Contact Info) Description 07/09/2024 10:00 AM EDT Hospital Encounter Non-[place] [address] Arrived documented as of this encounter Visit Diagnoses Not on filedocumented in this encounter Care Teams Oncologist Relationship Specialty Start Date End Date Edie Ellis MD [facility] [address] [place] [address] PCP - General 10/15/10 documented as of this encounter
--- OUTSIDE RECORDS SUMMARY | 2024-07-05 19:47 | XMS_ITS | Encounter Summary ---
Author Organization [facility] [place] [address] Care Team Providers Care Assistant Editor Name Role Phone Edie Ellis MD Primary Care Provider [phone] Encounter Details Date Type Department Care Team (Late st Contact Info) Description 07/24/2023 9:30 AM EDT Office Visit Cardiology at [address] [address] Tila Elmore RN SQ ICD, [employer], single lead Social History Tobacco Use [...] Clinical Electrophysiology Device Service Note Jammie Gottlieb [id number] 07/24/2023 History: 48 y.o. female with a [...] AM EDT Hospital Encounter Non-[place] [address] Arrived documented as of this encounter Visit Diagnoses Diagnosis SQ ICD, [employer], single lead documented in this encounter Care Teams Assistant Editor Relationship Specialty Start Date End Date Edie Ellis MD [facility] [address] [place] [address] PCP - General 10/15/10 documented as of this encounter
--- OUTSIDE RECORDS SUMMARY | 2024-07-05 19:47 | XMS_ITS | Encounter Summary ---
Author Organization [facility] [place] [address] Care Team Providers Care Senior Quality Assurance Analyst Name Role Phone Edie Ellis MD Primary Care Provider [phone] Encounter Details Date Type Department Care Team [...] AM EDT Hospital Encounter Non-Invasive [place] [address] Arrived documented as of this encounter Visit Diagnoses Not on filedocumented in this encounter Care Teams Senior Quality Assurance Analyst Relationship Specialty Start Date End Date Edie Ellis MD [address] [facility] 1 [place] [address] PCP - General 10/15/10 documented as of this encounter
--- OUTSIDE RECORDS SUMMARY | 2024-07-05 19:47 | XMS_ITS | Encounter Summary ---
Author Organization [facility] [place] [address] Care Team Providers Care Virtual Recruiter Name Role Phone Edie Ellis MD Primary Care Provider [phone] Encounter Details Date Type Department Care Team (Late st Contact Info) Description 07/30/2023 Telephone Cardiology at [address] [address] Alexandria Cornell, RN Social History Tobacco Use [...] discharge. She went to [facility] in [facility] and was treated for infection. States they cleaned both incisions, applied a similar dressing, and prescribed Clindamycin 450 mg TID. Patient is calling to inquire on how long she needs to leave this dressing in place and wound care instructions after removing. Alexandria Cornell supervisor [facility] [address] documented in this encounter Plan of Treatment Upcoming Encounters Date Type Department Care Team (Late st Contact Info) Description 07/09/2024 10:00 AM EDT Hospital Encounter Non-[place] [address] Arrived documented as of this encounter Visit Diagnoses Not on filedocumented in this encounter Care Teams Virtual Recruiter Relationship Specialty Start Date End Date Edie Ellis MD [address] [place] [address] PCP - General 10/15/10 documented as of this encounter
--- OUTSIDE RECORDS SUMMARY | 2024-07-05 19:47 | XMS_ITS | Continuity of Care Document ---
Author Organization [place] [facility], [facility] Address [address] [place] [address] Assessment Encounter Date Assessment Date Assessment LastModified [...] screenings consistent with USPSTF and ACIP guidelines jack Not available 05/27/2024 14:23:59 Plan of Treatment Reminders Order Date Submit Date Provider Last Modified By Organization Details Last Modified Time Details Appointments Follow Up 2023 04:20P M Not available Not available Not available Lab drug screen, urine 2023 024 [facility], [address], [place], [address], 05/27/2024 16:05:20 hemoglobi n A1C, fingersti ck 2023 024 [facility], [address], [place], [address], 05/27/2024 16:05:20 microalbu min, urine 2023 024 [email or web address] [facility], [address], [place], [address], 06/03/2024 11:57:28 Referral None recorded. Procedures None recorded. Surgeries None recorded. Imaging MAMMO, screening , digital, bilateral 2023 024 [email or web address] [facility], [address], [place], [address], 06/03/2024 16:03:35 Medication Orders Vascepa 1 gram capsule 2023 024 [facility], [address] [place] [address], [id number], 05/27/2024 16:10:30 Adult Low Dose Aspirin 81 mg tablet,de layed release 2023 024 FELISA [facility], [address] [place] [address], [id number], 05/27/2024 16:34:36 melatonin 10 mg sublingua l tablet 2023 024 [facility], [address] [place] [address], [address], 05/27/2024 16:10:30 pregabali n 100 mg capsule 2023 024 FELISA [facility], [address] [place] [address], 94[address], 05/27/2024 16:35:19 lamotrigi ne 200 mg tablet 2023 024 [facility], [address] [place] [address], [address], 05/27/2024 16:10:30 magnesium oxide 400 mg (241.3 mg magnesium ) tablet 2023 024 [email or web address] [facility], [address] [place] [address], [address], 05/27/2024 16:10:30 Vitamin B-2 100 mg tablet 2023 024 [email or web address] [facility], [address] [place] [address], [address], 05/27/2024 16:10:30 bupropion HCl XL 150 mg 24 hr tablet, extended release 2023 024 FELISA [facility], [address] [place] [address], [address], 07/04/2024 16:54:32 bupropion HCl XL 300 mg 24 hr tablet, extended release 2023 024 FELISA [facility], [address] [place] [address], [address], 07/04/2024 16:54:36 ketoconaz ole 2 % topical cream 2023 024 [email or web address] [facility], [address] [place] [address], [address], 05/27/2024 16:10:30 valacyclo vir 500 mg tablet 2023 024 [email or web address] [facility], [address] [place] [address], [address], 05/27/2024 16:10:30 omeprazol e 20 mg capsule,d elayed release 2023 024 [email or web address] [facility], [address] [place] [address], 75[address], 05/27/2024 16:10:30 rosuvasta tin 10 mg tablet 2023 024 [facility], [address] [place] [address], [address], 05/27/2024 16:10:30 albuterol sulfate HFA 90 mcg/actua tion aerosol inhaler 2023 024 [facility], [address] [place] [address], [address], 05/27/2024 16:10:30 cyanocoba ronna (vit B-12) 1,000 mcg tablet 2023 024 [email or web address] [facility], [address] [place] [address], 316[address], 05/27/2024 16:10:30 metoprolo l succinate ER 100 mg tablet,ex tended release 24 hr 2023 024 [email or web address] [facility], [address] [place] [address], [address], 05/27/2024 16:10:30 Farxiga 5 mg tablet 2023 024 FELISA [facility], [address] [place] [address], 223[address], 05/27/2024 16:34:49 fluconazo le 150 mg tablet 2023 024 chepe [facility], [address] [place] [address], [address], 05/27/2024 16:10:30 hydromorp romain 4 mg tablet 2023 024 FELISA [facility], [address] [place] [address], 209[address], 05/27/2024 16:35:24 hydromorp romain 4 mg tablet 2023 024 FELISA [facility], [address] [place] [address], [address], 05/27/2024 16:35:24 hydromorp romain 4 mg tablet 2023 024 FELISA [facility], [address] [place] [address], [address], 05/27/2024 16:35:16 naratript an 2.5 mg tablet 2023 024 [facility], [address] [place] [address], 8[address], 05/27/2024 16:10:30 prochlorp erazine maleate 10 mg tablet 2023 024 [facility], [address] [place] [address], [address], 05/27/2024 16:10:30 estradiol 1 mg tablet 2023 024 [facility], [address] [place] [address], 58[address], 05/27/2024 16:10:30 metformin ER 500 mg tablet,ex tended release 24 hr 2023 024 [facility], [address] [place] [address], [address], 07/04/2024 17:03:24 Trulicity 3 mg/0.5 mL subcutane ous pen injector 2023 024 [facility], [address] [place] [address], [address], 05/27/2024 16:10:30 levothyro xine 50 mcg tablet 2023 024 [facility], [address] [place] [address], [address], 05/27/2024 16:10:30 Patient TargetsNo targets recorded. Patient Instructions Encounter Date Encounter Id Patient Instructions Last Modified By Organization Details Last Modified Time 05/27/2024 [id number] Continue walking and choosing fruits and vegetables [...] well. She has been seen by both global program manager and a prescriber in the past at [facility]. I am feeling that having a psychiatrist [...] XL once a day. Referring Physician: Edie Kerr, Family Medicine, Encounter Date: 01/06/2024 Urologist Referral for Urina ry incontinence Worsening incontinence. S/p hysterectomy. 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, most recent ECHO 03/2023 EF 42% Referring Physician: Edie Kerr, Family Medicine, Encounter Date: 03/31/2024 Results Created Date Observation Date Name Description Value Unit Range Abnormal Flag LastModifiedBy Organization Detail LastModifiedTime 05/27/2005/27/2024 drug scree n, urine Amphetamines : negati ve Not Available [facility] [address], [place], [address], 05/27/2024 14:50:14 05/27/2005/27/2024 drug scree n, urine Barbiturates : negati ve Not Available [facility] [address], [place], [address], 05/27/2024 14:50:14 05/27/20 24 05/27/2024 drug scree n, urine BUP: negati ve Not Available [facility] [address], [place], [address], 05/27/2024 14:50:14 05/27/20 24 05/27/2024 drug scree n, urine Benzodiazepi lucsa: negati ve Not Available [facility] [address], [place], [address], 05/27/2024 14:50:14 05/27/20 24 05/27/2024 drug scree n, urine Cocaine: negati ve Not Available [facility] [address], [place], [address], 05/27/2024 14:50:14 05/27/20 24 05/27/2024 drug scree n, urine EDDP (Methadone Metabolite) negati ve Not Available [facility] [address], [place], [address], 05/27/2024 14:50:14 05/27/20 24 05/27/2024 drug scree n, urine (MET) Methamphetam ine: negati ve Not Available [facility] [address], [place], [address], 05/27/2024 14:50:14 05/27/20 24 05/27/2024 drug scree n, urine MDMA: negati ve Not Available [facility] [address], [place], [address], 05/27/2024 14:50:14 05/27/20 24 05/27/2024 drug scree n, urine MTD (Methadone): negati ve Not Available [facility] [address], [place], [address], 05/27/2024 14:50:14 05/27/20 24 05/27/2024 drug scree n, urine [id number] (Opiate): positi ve Not Available [facility] [address], [place], [address], 05/27/2024 14:50:14 05/27/20 24 05/27/2024 drug scree n, urine OXY (Oxycodone): negati ve Not Available [facility] [address], [place], [address], 05/27/2024 14:50:14 05/27/20 24 05/27/2024 drug scree n, urine TCA: negati ve Not Available [facility] [address], [place], [address], 05/27/2024 14:50:14 05/27/20 24 05/27/2024 drug scree n, urine THC: negati ve Not Available [facility] [address], [place], [address], 05/27/2024 14:50:14 05/27/20 24 05/27/2024 drug scree n, urine Temperature: wnl Not Available [facility] [address], [place], [address], 05/27/2024 14:50:14 05/27/20 24 05/27/2024 hemog lobin A1C, finge rstic k hemoglobin A1C 5.4 % <5.7 Not Available [facility] [address], [place], [address], 05/27/2024 14:46:09 06/03/20 24 06/03/2024 MAMMO , scree sotero, digit al, bilat eral Patien t Name: Naya Andrea Unit #: [id number] Loc: DI Orderi ng Provid er: Edie Kerr M.D. Accoun t #: [id number] Status : REG CLI Primar y Care Provid er: Edie Kerr M.D. Date of Exam: 11/15 Sex: F [...] these result s. Ordere d By: Edie Kerr M.D. CC: ------ ------ ------ ------ ------ ------ ------ ------ ------ ------ ------ ------ - Dictat ed By: Marc Lao 1217 1216 Transc ribed By: Sobia Montoya 1217 This is privil eged, confid ential inform [...] [email or web address] [facility] [address], [place], [address], 06/07/2024 13:10:46 Result Notes None recorded. Problems Name Status Onset Date Resolution Date Notes Provider Name and Address Organization Details Recorded Time Hyperlipidemi a Active [address], [facility] [address] , [facility] 4 17:39:18 Chronic tension-type headache Active 2005 Jessica light, [facility] 4 14:11:03 Polycystic ovary syndrome Active [address], [place], [address] , [facility] 4 17:42:00 Recurrent major depression Active [address], [facility] [address] , [facility] 3 21:49:59 Carpal tunnel syndrome of right wrist Active [address], [place], [address] , [facility] 3 21:56:06 Obesity Active [address], [facility] [address] , [facility] 3 21:50:41 Steatosis of liver Active 2005 FIB4 score 0.51 2017, 0.86 [address], [facility] [address] , [facility] 4 17:46:29 Type 2 diabetes mellitus without complication Active [address], [facility] [address] , [facility] 3 21:49:31 Intolerance to lactose Active [address], [place], [address] [place] [address] , [facility] 4 17:40:28 Chronic pain syndrome Active 2010 MME [address], [place], [address] , [facility] 4 17:43:50 Tachycardia Active [address], [place], [address] , [facility] 3 21:49:45 Atheroscleros is of coronary artery without angina pectoris Active 2012 Jessica light, [facility] 4 14:10:47 Discharge from nipple Completed 201406/20/2015 Problem Code: N64.52; Problem Code Type: ICD-10; Not Available [facility] 3 05:12:22 Amenorrhea Completed 201406/20/2015 05/23/2015 - Comments only - Edie Kerr MD - and nipple discharge. Negative urine test in the office, but will check serum HCG , as well as prolactin level. Problem Code: N91.2; Problem Code Type: ICD-10; Not Available [facility] 3 05:12:23 Adult health examination Active [address], [place], [address] , [facility] 4 17:32:17 Hypothyroidis m Active [address], [facility] [address] , [facility] 3 21:51:31 Hypomagnesemi a Active [address], [place], [address] , [facility] 3 21:51:39 Arthralgia of the ankle and/or foot Completed 201511/12/2016 Problem Code: M25.572; Problem Code Type: ICD-10; Not Available [facility] 3 05:12:23 Nausea and vomiting Completed 201604/30/2017 04/23/2017 - Comments only - Edie Kerr MD - Heart no wet at this is simply a recurrent gastroenterit is. She is not having diarrhea, so C. difficile for Giardia and no longer likely. We will draw her blood today for CBC and CMP. Also amylase and lipase given extent of her nausea and vomiting. Problem Code: R11.2; Problem Code Type: ICD-10; Not Available [facility] 3 05:12:23 Dysuria Completed 201604/30/2017 04/23/2017 - Comments only - Edie Kerr MD - We will check urinalysis to be sure this is not UTI/pyeloneph ritis. Problem Code: R30.0; Problem Code Type: ICD-10; Not Available [facility] 3 05:12:23 Primary amenorrhea Completed 201610/02/2017 09/25/2017 - Comments only - Edie Kerr MD - Negative urine test here in the office. I lectured her again on the importance of using condoms, as she does not want to use any other form of control. If her menses continues to be absent, we could check serum hCG. Problem Code: N91.0; Problem Code Type: ICD-10; Not Available [facility] 3 05:12:24 Acute bronchitis Completed 201610/09/2017 09/25/2017 - Comments only - Edie Kerr MD - She has some wheezing on [...] J20.9; Problem Code Type: ICD-10; Not Available [facility] 3 05:12:24 Screening for malignant neoplasm of cervix Completed 201703/01/2018 Problem Code: Z12.4; Problem Code Type: ICD-10; Not Available [facility] 3 05:12:24 Tobacco user Active [address], [place], [address] , [facility] 3 21:49:37 Hypertrophic condition of skin Completed 201708/25/2018 08/20/2018 - Comments only - Edie Kerr MD - Sites are consistent with silver nitrate application with slight irritation. To avoid infection I suggested applying mupirocin Problem Code: L91.8; Problem Code Type: ICD-10; Not Available [facility] 3 05:12:24 Acute bronchitis Completed 201711/08/2018 10/25/2018 - Comments only - Edie Kerr MD - Persistent symptoms for 4 weeks, we will go ahead and start antibiotics, azithromycin given penicillin allergy Problem Code: J20.9; Problem Code Type: ICD-10; Not Available [facility] 3 05:12:24 Pain in left arm Active [address], [place], [address] , [facility] 3 21:50:31 Posttraumatic stress disorder Active [address], [place], [address] , [facility] 3 21:50:08 Fatigue Active [address], [place], [address] , [facility] 3 21:52:27 Diarrhea Completed 201901/05/2020 12/22/2019 - Comments only - Edie Kerr MD - She has had lots of [...] R19.7; Problem Code Type: ICD-10; Not Available [facility] 3 05:12:25 Herpesvirus infection Active 2019 Jessica light, [facility] 4 14:11:26 Disorder of external ear Completed 201903/08/2020 Problem Code: H60.10; Problem Code Type: ICD-10; Not Available [facility] 3 05:12:25 Lumbago with sciatica Active [address], [place], [address] , [facility] 4 17:40:39 Pain of right shoulder joint Active 2021 MRI 12/[address], [place], [address] , [facility] 4 17:41:50 Dysuria Completed 202102/03/2022 01/20/2022 - Comments only - Edie Kerr MD - and urinary incontinence, referral back to urology. Problem Code: R30.0; Problem Code Type: ICD-10; Not Available [facility] 3 05:12:26 Muscle pain Active 2021 deep muscle biopsy, awaiting results. 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 MD [address], [place], [address] , [facility] 4 17:41:01 Displacement of cervical intervertebra l disc Active 2021 Jessica light, [facility] 4 14:11:08 Pre-surgery evaluation Completed 202104/23/2022 04/16/2022 - Comments only - Edie Kerr MD - She is medically stable for proposed low risk surgery. She does have known cardiomyopath y, but her last ejection fraction was good, and she has nonobstructiv e disease based on cardiac catheterizati on. She does not have any orthopnea or dyspnea or ankle edema. Problem Code: Z01.818; Problem Code Type: ICD-10; Not Available [facility] 3 05:12:27 Anxiety disorder Active [address], [facility] [address] , [facility] 4 17:32:23 Seasonal allergic rhinitis Active [address], [place], [address] , [facility] 4 17:42:04 Urinary incontinence Active [address], [facility] [address] , [facility] 3 21:49:24 Dyspnea Completed 202110/06/2022 Problem Code: R06.09; Problem Code Type: ICD-10; Not Available [facility] 3 05:12:28 Screening mammography Completed 202111/03/2023 Problem Code: Z12.31; Problem Code Type: ICD-10; MD [address], [facility] [address] , [facility] 3 21:49:52 Chondromalaci a of left knee Active 2022 EDIE KERR MD [address], [place], [address] , [facility] 4 17:32:37 Acute vaginitis Completed 202210/06/2023 Problem Code: N76.0; Problem Code Type: ICD-10; Removal Reason: resolved EDIE KERR MD [address], [place], [address] , [facility] 3 12:54:07 Dyspnea Completed 202006/17/2021 Problem Code: R06.02; Problem Code Type: ICD-10; Not Available [facility] 3 05:12:35 Lactose intolerance Completed 200408/19/2023 Not Available [facility] 3 05:12:36 Dysthymia Completed 201705/16/2019 Problem Code: F34.1; Problem Code Type: ICD-10; Not Available [facility] 3 05:12:36 Acute upper respiratory infection Completed 201903/22/2020 Problem Code: J06.9; Problem Code Type: ICD-10; Not Available [facility] 3 05:12:38 Low back pain Completed 201610/25/2021 Problem Code: M54.5; Problem Code Type: ICD-10; Not Available [facility] 3 05:12:38 Right upper quadrant pain Completed 201607/30/2017 Problem Code: R10.11; Problem Code Type: ICD-10; Not Available [facility] 3 05:12:38 Anxiety Completed 200408/19/2023 Problem Code: F41.8; Problem Code Type: ICD-10; Not Available [facility] 3 05:12:39 Pelvic and perineal pain Completed 201810/03/2019 Problem Code: R10.2; Problem Code Type: ICD-10; Not Available [facility] 3 05:12:39 Atrial flutter Completed 202006/17/2021 Problem Code: I48.92; Problem Code Type: ICD-10; Not Available [facility] 3 05:12:39 Hyperglycemia due to type 2 diabetes mellitus Completed 200508/19/2023 12/18/2017 - Comments only - Edie Kerr MD - check labs prior to follow up visit. Problem Code: E11.65; Problem Code Type: ICD-10; Not Available [facility] 3 05:12:40 Splenomegaly Completed 200608/19/2023 Not Available [facility] 3 05:12:40 Morbid obesity Completed 200408/19/2023 Not Available [facility] 3 05:12:40 Derangement of left knee Completed 202204/15/2023 Problem Code: M23.92; Problem Code Type: ICD-10; Not Available [facility] 3 05:12:41 Pain of left shoulder joint Completed 201805/06/2021 Problem Code: M25.512; Problem Code Type: ICD-10; Not Available [facility] 3 05:12:41 Noninflammato ry disorder of the vagina Completed 202204/20/2023 Problem Code: N89.8; Problem Code Type: ICD-10; Not Available [facility] 3 05:12:42 Pelvic and perineal pain Completed 201607/30/2017 Problem Code: R10.2; Problem Code Type: ICD-10; Not Available [facility] 3 05:12:42 Dysuria Completed 202107/09/2022 Problem Code: R30.9; Problem Code Type: ICD-10; Not Available [facility] 3 05:12:42 Polycystic ovaries Completed 200508/19/2023 Not Available [facility] 3 05:12:43 Coronary arteriosclero sis Completed 201208/19/2023 Not Available [facility] 3 05:12:43 Localized edema Completed 201607/30/2017 Problem Code: R60.0; Problem Code Type: ICD-10; Not Available [facility] 3 05:12:44 Diarrhea Completed 201604/10/2017 Problem Code: R19.7; Problem Code Type: ICD-10; Not Available [facility] 3 05:12:44 Pain of right wrist Completed 202104/15/2023 Problem Code: M25.531; Problem Code Type: ICD-10; Not Available [facility] 3 05:12:45 Nicotine dependence Completed 201708/19/2023 10/03/2019 - Comments only - Edie Kerr MD - congratulated on quitting. Problem Code: Z87.891; Problem Code Type: ICD-10; Not Available [facility] 3 05:12:45 Headache Completed 200508/19/2023 Not Available [facility] 3 05:12:45 Cyst of ovary Completed 201607/30/2017 Problem Code: N83.20; Problem Code Type: ICD-10; Not Available [facility] 3 05:12:47 Diabetes mellitus Completed 200508/19/2023 08/08/2015 - Comments only - Edie Kerr MD - with poor control based on hemoglobin A1c, despite significant recent weight loss. I have recommended that she increase her dose of metformin to 1000 mg twice daily. We discussed the role of checking blood sugars and initiating insulin, she is adamant that she would be unable to do so at this time. Not Available [facility] 3 05:12:48 Fatigue Completed 201508/08/2016 Problem Code: R53.83; Problem Code Type: ICD-10; EDIE KERR MD [address], [place], [address] , [facility] 3 21:52:27 Generalized anxiety disorder Completed 200408/19/2023 10/23/2017 - Comments only - Edie Kerr MD - clonazepam is renewed for 8 weeks. Problem Code: F41.1; Problem Code Type: ICD-10; Not Available [facility] 3 05:12:49 Carpal tunnel syndrome Completed 201108/19/2023 Problem Code: 354.0; Problem Code Type: ICD-9; EDIE KERR MD [address], [place], [address] , [facility] 21:56:13 Pneumocystosi s Completed 202111/06/2022 Problem Code: B59; Problem Code Type: ICD-10; Not Available [facility] 3 05:12:50 Acute pharyngitis Completed 201510/29/2016 Problem Code: J02.9; Problem Code Type: ICD-10; Not Available [facility] 3 05:12:50 Dysfunctional uterine bleeding Completed 200410/03/2019 Not Available [facility] 3 05:12:51 Active immunization Completed 201709/29/2019 Problem Code: Z23; Problem Code Type: ICD-10; Not Available [facility] 3 05:12:51 Pain of left knee joint Completed 202208/19/2023 Problem Code: M25.562; Problem Code Type: ICD-10; Not Available [facility] 3 05:12:52 Pain in right arm Completed 202108/19/2023 03/13/2022 - Comments only - Edie Kerr MD - and right shoulder pain. Pain [...] MRI of cervical spine. She should call [facility] to see if she can be on their cancellation list. Labs were drawn today for CPK, inflammatory markers. Reminded her that smoking lowers pain threshold. Problem Code: M79.601; Problem Code Type: ICD-10; Not Available [facility] 3 05:12:53 Palpitations Completed 202104/15/2023 Problem Code: R00.2; Problem Code Type: ICD-10; Not Available [facility] 3 05:12:54 Palpitations Completed 201805/16/2019 Problem Code: R00.2; Problem Code Type: ICD-10; Not Available [facility] 3 05:12:54 Glycosuria Completed 202204/15/2023 Problem Code: R81; Problem Code Type: ICD-10; Not Available [facility] 3 05:12:55 Mixed anxiety and depressive disorder Completed 200408/19/2023 10/05/2015 - Comments only - Edie Kerr MD - I reminded her that every time she avoids a situation that gives her anxiety, she increases her anxiety, and that she should continue to try exposure therapy. Not Available [facility] 3 05:12:56 Exposure to sexually transmissible disorder Completed 201406/20/2015 Problem Code: Z20.2; Problem Code Type: ICD-10; Not Available [facility] 3 05:12:57 Syncope and collapse Completed 201902/11/2021 Problem Code: R55; Problem Code Type: ICD-10; Not Available [facility] 3 05:12:57 Dyspnea Completed 201904/15/2023 Problem Code: R06.02; Problem Code Type: ICD-10; Not Available [facility] 3 05:12:58 Severe obesity Completed 200408/19/2023 08/24/2020 - Comments only - Edie Kerr MD - She is congratulated on her recent weight loss. Problem Code: E66.01; Problem Code Type: ICD-10; Not Available [facility] 3 05:12:58 Menopause present Completed 201801/11/2020 Problem Code: N95.1; Problem Code Type: ICD-10; Not Available [facility] 3 05:12:59 Exposure to communicable disease Completed 201910/05/2020 Problem Code: Z20.828; Problem Code Type: ICD-10; Not Available [facility] 3 05:13:00 Pain of breast Completed 202104/15/2023 Problem Code: N64.4; Problem Code Type: ICD-10; Not Available [facility] 3 05:13:01 Exposure to communicable disease Completed 202111/06/2022 Problem Code: Z20.828; Problem Code Type: ICD-10; Not Available [facility] 3 05:13:02 Recurrent herpes simplex Active [address], [facility] [address] , [facility] 3 12:52:56 Herniation of nucleus pulposus of cervical intervertebra l disc Active 2021 cervical spine MD [address], [facility] [address] , [facility] 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% in 03/[address], [place] [address] , [facility] 4 20:14:59 Cardiac defibrillator in situ Active [address], [facility] [address] , [facility] 3 22:00:00 Localized infection of skin AND/OR subcutaneous tissue Completed 202208/28/2023 Problem Code: L08.9; Problem Code Type: ICD-10; Not Available [facility] 4 05:38:00 Injury due to suicide attempt Completed 202201/05/2024 Problem Code: T14.91xD; Problem Code Type: ICD-10; MD [address], [facility] [address] , [facility] 4 17:42:23 Suicidal Active 2023 recurrent MD [address], [facility] [address] , [facility] 4 17:43:22 Heart failure with reduced ejection fraction Active 2022 Jessica Toussaint [facility] 4 14:11:13 Problem Notes None recorded. Procedures Surgical History Date Name Laterality Status Provider Name and Address Organization Details Recorded Time 0 hysterectomy completed MD Gonzalo [address], [place], [address], [facility] 12/09/2023 20:53:39 Imaging Results None recorded. Procedure Notes None recorded. Medical Equipment None Reported. Allergies Allergen ID Allergen Name Allergen Category Reaction Reaction Severity Criticality Documentation Date Start Date Code Code System Note Provider Name and Address Organization Details Recorded Time Medicinal product containin g penicilli n and acting as antibacte rial agent (product) medicatio n anaphylax is Not available Not available 10/02/20232004 21718 05 SNOMED anaph ylact ic shock Aller gyCod e: '8340 61'; Aller gyNam e: 'PENI CILLI N'; Aller gyCon ceptT ype: 'RX Norm' ; Aller gyRea ction : 'anap hylac tic shock '; Not Available [facility] 3 16:14:27 17252 Substance with sulfonami de structure and antibacte rial mechanism of action (substanc e) medicatio n diarrhea nausea mild mild low 10/07/2023 37794 8003 SNOMED ELLIE LYNN LPN [facility] 3 11:21:44 Medications Name Sig Start Date [...] 2019 active Not Available Not Available Not Avsarahi labtata lamotrigi ne 200 mg tablet TAKE ONE [...] 2013 active Not Available Not Available Not Avsarahi labtata Topamax 25 mg tablet 1 TAB twice [...] tablet every day by oral route. active [place] [facility] Not Available Not Available No t [...] Available promethaz ine 25 mg tablet 1tab [id number] 03/16 completed Not Available Not Available Not [...] by mouth once a day 11/27 completed [facility] Not Available Not Available Not [...] daily Take as needed. 04/01 completed per [facility] Not Available Not Available Not Available albuterol [...] patches, change q3d. Fill only at [facility] 2014 active Not Available Not Available Not [...] lable pen needle, diabetic 31 gauge x 02/05 Use once a week 2017 active Not [...] active Not Available Not Available Not Avai ginger Myrbetriq 25 mg tablet,ex tended release TAKE [...] by mouth once a day 11/06 completed [facility] Not Available Not Available Not [...] TABLET BY MOUTH TWICE A DAY active [facility] Not Available Not Available Not [...] Last Updated DateTime 165.1 cm 29.6 kg/m2 37231.4 4 g 97.7 [degF] 78 /min 16 /min 104 mm[Hg] 70 mm[Hg] ELLIE LYNN LPN [facility] 14:36:47 Social History Question Answer Notes LastModified by Organizat ion Details LastModified Time Tobacco Smoking Status Former Smoker ELLIE LYNN LPN [facility], [facility] 05/27/2024 14:30:57 When Did You Quit [...] And Wanted Help? (For Example, If You [place] Very Nervous, Lonely, Or Blue; Got Sick [...] Safety Concerns In Your Home (see Attached [facility] Pamphlet)? No Information not available 05/27/2024 How [...] DM Type II MGM: CVA PGF: CAD, MT lots of DMII on both sides. Medical History No medical history recorded. Gynecological HistoryNo gynecological history recorded. Obstetrics History GPAL:G 0 P 0 0 0 0 Immunizations Vaccine Type Date Status Provider Name and Address Organization Details Recorded Time Hep B, adult 05/27/2024 completed MD [address]alo [address], [place], [address], [facility] 05/27/2024 16:56:26 Td (adult), 5 Lf tetanus toxoid, preservative free, adsorbed 03/04/2019 completed Not Available [facility] 10/02/2023 05:15:00 Tdap 02/08/2009 completed Not Available [facility] 05:15:00 Novel Qqscehlab-[id number], all formulations 10/08/2009 completed Not Available [facility] 10/02/2023 05:15:00 Td(adult) unspecified formulation 03/27/2003 completed Not Available [facility] 10/02/2023 05:15:00 Influenza, split virus, trivalent, preservative 09/05/2015 completed Not Available [facility] 10/02/2023 05:15:00 Influenza, split virus, trivalent, preservative 10/29/2016 completed Not Available [facility] 10/02/2023 05:15:00 Influenza, split virus, quadrivalent, PF 08/08/2019 completed Not Available [facility] 10/02/2023 05:15:01 Influenza, split virus, quadrivalent, PF 08/24/2020 completed Not Available [facility] 10/02/2023 05:15:01 Influenza, split virus, quadrivalent, PF 09/29/2022 completed Not Available [facility] 10/02/2023 05:15:01 Influenza, split virus, quadrivalent, preservative 08/11/2018 completed Not Available [facility] 10/02/2023 05:15:01 Influenza, split virus, quadrivalent, preservative 08/27/2017 completed Not Available [facility] 10/02/2023 05:15:01 COVID-19, mRNA, LNP-S, PF, 30 mcg/0.3 mL dose 06/17/2021 completed Not Available [facility] 10/02/2023 05:15:01 COVID-19, mRNA, LNP-S, PF, 30 mcg/0.3 mL dose 07/09/2021 completed Not Available [facility] 10/02/2023 05:15:01 Pneumococcal conjugate PCV20, polysaccharide BDR177 conjugate, adjuvant, PF 09/22/2022 completed Not Available [facility] 10/02/2023 05:15:02 COVID-19, mRNA, LNP-S, PF, 30 mcg/0.3 mL dose, leticia-sucrose 04/16/2022 completed Not Available [facility] 10/02/2023 05:15:02 COVID-19, mRNA, LNP-S, bivalent, PF, 30 mcg/0.3 mL dose 09/22/2022 completed Not Available [facility] 10/02/20 05:15:02 pneumococcal polysaccharide PPV23 03/27/2003 completed Not Available [facility] 2022 05:15:02 Hep B, adult 02/15/2018 completed Not Available [facility] 10/02/2023 05:15:02 Hep B, adult 04/16/2018 completed Not Available [facility] 10/02/2023 05:15:02 influenza, unspecified formulation 07/28/2014 completed Not Available [facility] 10/02/2023 05:15:02 Influenza, split virus, quadrivalent, PF 08/28/2023 completed Not Available [facility] 12/04/2023 05:33:21 Past Encounters Encounter ID Performer Location Encounter Start Date Encounter Closed Date Diagnosis/Indication Diagnosis SNOMED-CT Code [id number] EDIE KERR MD [address] [place] [address] 05/27/2024 14:18:46 05/27/2024 15:14:54 Chronic pain syndrome 831578879 Adult heal th examination 059555460 Screening mammography 24 853085 Type 2 ketty betes mellitus without complication 312817479 Obesity 994024302 Chronic depression 31202 0009 Polycystic ovary syndrome 727239173 Vaginitis 28114122 Candidiasis of skin 4988 3006 Depressive disorder 3548 9007 Hypothyroidism 61285323 Chronic te nsion-type headache 533515983 Insomnia 725953573 Migraine 58859131 Gastroesop hageal reflux disease 870350082 Joint pain 16528363 Hyperlipidemia 67914658 Herpesvirus infection 23 522928 Seasonal a llergic rhinitis 732059555 Heart fail ure with reduced ejection fraction 136023074 Atheroscle rosis of coronary artery without angina pectoris 32557258146016 3 Active or passive immunization 683254986 Health Concerns Section Related Observation LastModified by Organization Detai ls LastModified Time None Recorded Concern Status LastModified by Organization Details LastModified Time None Recorded Payers Encounter Date Sequence Insurance Name Policy Number Policy Mack Covered Member ID Mack Member ID Guarantor Name 05/27/2024 1 [place] [employer] Jammie Gottlieb [id number] 1 Jammie Gottlieb 05/27/2024 2 [facility] (MEDICAID) Jammie Gottlieb [id number] Jammie Gottlieb Notes Date Note Type Note [...] Not very hungry. Anxiety/PTSD/depre ssion- seeing Melvina Bond, JEREMIAH. Leaving the house is starting to become [...] panic attacks. Son is getting today. EDIE KERR MD [address], [place], [address], [facility]. 05/27/2024 17:16:04 OBGyn Episode No OBEpisode recorded.
--- OUTSIDE RECORDS SUMMARY | 2024-07-05 19:47 | XMS_ITS | Encounter Summary ---
Author Organization [facility] Address [facility] [place] [address] Care Team Providers Care Investment Broker Name Role Phone Edie Ellis MD Primary Care Provider [phone] Encounter Details Date Type Department Care Team (Late st Contact Info) Description 08/07/2023 8:30 AM EDT - 08/07/2023 10:00 AM EDT Surgery Electrophys[place] [address] Jonathan Willson MD [facility] [place] [address] ELECTROPHYSIOLOGY PROCEDURE Social History Tobacco Use Types [...] F. The office scheduling phone number is [phone]. documented in this encounter Medications at Time [...] a day 03/12/2015 naloxone (Narcan) 4 mg/actuation [place], Non-Aerosol Once 03/10/2019 magnesium oxide (MAG-OX) 400 [...] note were not included. Jammie Gottlieb 1975 [id number] Primary Care Physician Edie Ellis MD 08/07/23 [...] Patient Active Problem List Diagnosis SQ ICD, [employer], single lead Economic Specialist Model # Serial # Generator [employer] A219 [id number] Ventricular Lead [employer] 3501 860863 HFrEF (heart failure with reduced ejection fraction) [...] Spacer USE DIRECTED naloxone (Narcan) 4 mg/actuation [place], Non-Aerosol Once valACYclovir (VALTREX) 1 g tablet [...] of the procedure. Written consent obtained Will change management facilitator her dressings today JONATHAN WILLSON MD 08/07/2023 Pager [phone] Plan 1) Anticipate DFT test 2) Discharge [...] AM EDT Hospital Encounter Non-Invasive [place] [address] Arrived documented as of this encounter Procedures [...] (at implant and today) I was the primary teaching assistant, present for the entire procedure and personally edited this note JONATHAN WILLSON MD Narrative 08/07/2023 3:16 PM EDT SQ ICD Surveillance, Monitored Anesthesia Care Indication: Assessment of defibrillation thresholds, unable to induce VF at initial implant Operators: ??Reinaldo Connelly MD; Jonathan DIXON.[facility]. Procedure: The patient was brought to the Electrophysiology Lab in the fasting state and continuous electrocardiographic monitoring was instituted. ICD evaluation and DFT testing was performed under moderate sedation with monitored anesthesia care ICD Evaluation: [employer] A219 Device Serial Number: [id number] Battery: 100% to LISA A 10 joule [...] Glucose, POC 152 65 - 199 mg/dL [facility] Comment: Supplemental ranges: <140 mg/dL before meals <180 mg/dL all other times of the day Blood 08/07/2023 7:46 AM EDT 08/07/2023 7:46 AM EDT Jonathan Willson MD POINT OF CARE TEST O RDERABLES [facility] [place] [address] * (ABNORMAL) BMP w/fasting Glucose (08/07/2023 7:38 AM EDT) Glucose Fasting 165(H) 65 - 99 mg/dL [facility] Comment: ?Fasting* Glucose Interpretive Criteria Normal [...] of Diabetes Mellitus, Position Statement from the [place] [employer]. ??Diabetes Care, Volume 33, Supplement 1, Nov 2009 Blood Urea Nitrogen 17 8 - 18 mg/dL [facility] Creatinine 0.52(L) 0.70 - 1.20 mg/dL [facility] Sodium 137 135 - 145 mmol/L [facility] Potassium 4.7 3.5 - 5.0 mmol/L [facility] Comment: Please note: ??Patients with WBC >100,000 may have falsely elevated Potassium levels. ??For accurate Potassium quantification in these patients send serum separator tube (gold top) for subsequent determinations. ??Contact the Clinical Chemistry Laboratory if there are any questions. Chloride 102 98 - 107 mmol/L [facility] Carbon Dioxide 26 22 - 31 mmol/L [facility] Anion Gap 9 5 - 15 mmol/L [facility] Calcium 9.1 8.5 - 10.5 mg/dL [facility] Est Glomerular Filtration Rate 115 >=60 mL/min/1. 73 m?? [facility] Comment: This patient's estimated GFR was [...] In Lab Hero Taylor MD CHEMISTRY ORDERABLES [facility] [place] [address] documented in this encounter Visit Diagnoses Diagnosis Dilated cardiomyopathy Other primary cardiomyopathies Dilated cardiomyopathy Other primary cardiomyopathies documented in this encounter Active and Recently Administered Medications Care Teams Investment Broker Relationship Specialty Start Date End Date Edie Ellis MD [address] [place] [address] PCP - General 10/15/10 documented as of this encounter
--- OUTSIDE RECORDS SUMMARY | 2024-07-05 19:47 | XMS_ITS | Encounter Summary ---
[place] [address] Care Team Providers Care Gum Maker Name Role Phone Edie Ellis MD Primary Care Provider [phone] Encounter Details Date Type Department Care Team (Latest Contact Info) Description 01/11/2024 10:00 AM EST - 01/11/2024 11:59 PM EST Hospital Encounter [place] [address] Discharge Disposition: Home Social History Tobacco Use [...] a day 03/12/2015 naloxone (Narcan) 4 mg/actuation [place], Non-Aerosol Once 03/10/2019 magnesium oxide (MAG-OX) 400 [...] AM EDT Hospital Encounter Non[place] [address] Arrived documented as of this encounter Procedures [...] on filedocumented in this encounter Care Teams Gum Maker Relationship Specialty Start Date End Date Edie Ellis MD [address] [facility] [address] [place] [address] PCP - General 10/15/10 documented as of this encounter
--- OUTSIDE RECORDS SUMMARY | 2024-07-05 19:48 | XMS_ITS | Encounter Summary ---
[place] [address] Care Team Providers Care Restaurant Supervisor Name Role Phone Edie Ellis MD Primary Care Provider [phone] Encounter Details Date Type Department Care Team [...] AM EDT Hospital Encounter Non-Invasive [place] [address] Arrived documented as of this encounter Visit Diagnoses Not on filedocumented in this encounter Care Teams Restaurant Supervisor Relationship Specialty Start Date End Date Edie Ellis MD [address] [place] [address] PCP - General 10/15/10 documented as of this encounter
--- OUTSIDE RECORDS SUMMARY | 2024-07-05 19:48 | XMS_ITS | Encounter Summary ---
Author Organization [facility] [place] [address] Care Team Providers Care Boiler Fitter Name Role Phone Edie Ellis MD Primary Care Provider [phone] Encounter Details Date Type Department Care Team (Late st Contact Info) Description 07/06/2023 Telephone Cardiology at [address] [phone] Loretta Carreon, RN Social History Tobacco Use [...] Pre Procedure Call: SQ ICD implant EP GOLF TEACHER COORDINATION CHECKLIST Patient Name: Jammie Gottlieb Patient Performing Music Store Manager: Jonathan Willson Referring Provider: Kina Awad Date of Procedure:07/14/23 Arrival Time/ Case Time: 6:00 am / 7:30 am Check In Location: Aircraft Maintenance Engineer Desk 4W Date Patient was Called: 07/06/23 Procedure: ICD implant Company: [facility] Type: SQ ICD Laterality: LEFT Orders: Yes [...] , understands that they will need driver guide on day of discharge Notified pt that Rao catheter may be placed on day of procedure depending on type & duration of case. documented in this encounter Plan of Treatment Upcoming Encounters Date Type Department Care Team (Late st Contact Info) Description 07/09/2024 10:00 AM EDT Hospital Encounter Non-[place] [address] Arrived documented as of this encounter Visit Diagnoses Not on filedocumented in this encounter Care Teams Boiler Fitter Relationship Specialty Start Date End Date Edie Ellis MD [address] [place] [address] PCP - General 10/15/10 documented as of this encounter
--- OUTSIDE RECORDS SUMMARY | 2024-07-05 19:48 | XMS_ITS | Encounter Summary ---
Author Organization Counts Include [address] [address] Care Team Providers Care Assistant Professor Of Art Name Role Phone Edie Ellis MD Primary Care Provider [phone] Reason for Visit * Reason Onset Date Comments Questions 03/26/2023 Cardiac clearanc e for orthopedic surgery Encounter Details Date Type Department Care Team (Late Contact Info) Description 03/26/2023 Telephone Cardiology at [address] [phone] Angélica Polo, RN Questions (Cardiac clearance for [...] PM EDT Call received from Angélica at [address] [place], [place] [address]s Orthopedics in [facility] (phone [phone]) stating that the pt has had the [...] AM EDT Hospital Encounter Non-Invasive [place] [address] Arrived documented as of this encounter Visit Diagnoses Not on filedocumented in this encounter Care Teams Assistant Professor Of Art Relationship Specialty Start Date End Date Edie Ellis MD [facility] [address] [place] [address] PCP - General 10/15/10 documented as of this encounter
--- OUTSIDE RECORDS SUMMARY | 2024-07-05 19:48 | XMS_ITS | Encounter Summary ---
Author Organization [facility] [place] [address] Care Team Providers Care Machine Or Machinery Mechanic Name Role Phone Edie Ellis MD Primary Care Provider [phone] Encounter Details Date Type Department Care Team (Late st Contact Info) Description 04/30/2023 Orders Only Cardiology at [address] [phone] Kina Awad PA [facility] [place] [address] HFrEF (heart failure with reduced ejection fraction) [...] AM EDT Hospital Encounter Non-Invasive [place] [address] Arrived documented as of this encounter Visit Diagnoses Diagnosis HFrEF (heart failure with reduced ejection fraction) documented in this encounter Care Teams Machine Or Machinery Mechanic Relationship Specialty Start Date End Date Edie Ellis MD [facility] [address] [facility] [address] [place] [address] PCP - General 10/15/10 documented as of this encounter
--- OUTSIDE RECORDS SUMMARY | 2024-07-05 19:48 | XMS_ITS | Encounter Summary ---
[place] [address] Care Team Providers Care Marketing Services Manager Name Role Phone Edie Ellis MD Primary Care Provider [phone] Reason for Visit * Reason Onset Date Comments Follow-up 04/30/2023 Entresto start Encounter Details Date Type Department Care Team (Late st Contact Info) Description 04/30/2023 Telephone Cardiology at [address] [phone] Angélica Polo, RN Follow-up (Entresto start/) Social [...] 04/30/2023 2:31 PM EDT Pt returning this machine sign writer's call. She is feeling well. Home BP readings are mostly good. Lowest 99/77, up to 123/87. Denies any swelling in legs or abd. Weights are steadily going done. She will get BMP at [facility], will call to make an appointment for [...] Message left for her to call the machine sign writer with an update. Call placed to Rosmery [...] AM EDT Hospital Encounter [place] [address] Arrived documented as of this encounter Visit Diagnoses Not on filedocumented in this encounter Care Teams Marketing Services Manager Relationship Specialty Start Date End Date Edie Ellis MD [facility] [address] [place] [address] PCP - General 10/15/10 documented as of this encounter
--- OUTSIDE RECORDS SUMMARY | 2024-07-05 19:48 | XMS_ITS | Encounter Summary ---
Author Organization [facility] [place] [address] Care Team Providers Care Hydraulic Plumber Helper Name Role Phone Edie Ellis MD Primary Care Provider [phone] Encounter Details Date Type Department Care Team (Late Contact Info) Description 08/05/2022 Telephone Neurology at [facility] [place] [phone] Kieran Harkins MD [facility] [place] [address] Social History Tobacco Use Types Packs/Day Years [...] AM EDT Hospital Encounter [place] [phone] Arrived documented as of this encounter Visit Diagnoses Not on filedocumented in this encounter Care Teams Hydraulic Plumber Helper Relationship Specialty Start Date End Date Edie Ellis MD [facility] [address] [place] [address] PCP - General 10/15/10 documented as of this encounter
--- OUTSIDE RECORDS SUMMARY | 2024-07-05 19:48 | XMS_ITS | Encounter Summary ---
Author Organization [facility] Address [facility] [place] [address] Care Team Providers Care Embedded Linux Developer Name Role Phone Edie Ellis MD Primary Care Provider [phone] Reason for Visit * Reason Onset Date Comments Medication Refill 06/03/2023 Entresto dose increase to 49-51 bid Encounter Details Date Type Department Care Team (Late st Contact Info) Description 06/03/2023 Refill Cardiology at [address] [address] Kina Awad PA [facility] [place] [address] Medication Refill (Entresto dose increase to 49-51 [...] AM EDT Hospital Encounter Non-Invasive Cardiology [place] [address] Arrived documented as of this encounter Visit Diagnoses Diagnosis HFrEF (heart failure with reduced ejection fraction) documented in this encounter Care Teams Embedded Linux Developer Relationship Specialty Start Date End Date Edie Ellis MD [address] [place] [address] PCP - General 10/15/10 documented as of this encounter
--- OUTSIDE RECORDS SUMMARY | 2024-07-05 19:48 | XMS_ITS | Encounter Summary ---
Author Organization [facility] [place] [address] Care Team Providers Care Deburrer Machine Name Role Phone Edie Ellis MD Primary Care Provider [phone] Encounter Details Date Type Department Care Team (Late st Contact Info) Description 01/23/2023 12:05 AM EST Ancillary Procedure [place] [phone] Edie Ellis MD [facility] [address] [place], [place] [id number] Social History Tobacco Use Types Packs/Day Years [...] AM EDT Hospital Encounter Non-[place] [address] Arrived documented as of this encounter Procedures [...] FILM LIBRARY ORD ERABLES Performing Organization Address City/State/[facility] Co de Phone Number [place], [place] documented in this encounter Visit Diagnoses Not on filedocumented in this encounter Care Teams Deburrer Machine Relationship Specialty Start Date End Date Edie Ellis MD [address] [place] [address] [address] [place] [address] PCP - General 10/15/10 documented as of this encounter
--- OUTSIDE RECORDS SUMMARY | 2024-07-05 19:48 | XMS_ITS | Encounter Summary ---
Author Organization [facility] [place] [address] Care Team Providers Care Oyster Grower Name Role Phone Edie Ellis MD Primary Care Provider [phone] Encounter Details Date Type Department Care Team (Late st Contact Info) Description 04/17/2023 Refill Cardiology at [address] [phone] Kina Awad PA [facility] [place] [address] Social History Tobacco Use Types Packs/Day Years [...] AM EDT Hospital Encounter Non-[place] [phone] Arrived documented as of this encounter Visit Diagnoses Not on filedocumented in this encounter Care Teams Oyster Grower Relationship Specialty Start Date End Date Edie Ellis MD [employer] [address] [place] [address] PCP - General 10/15/10 documented as of this encounter
--- OUTSIDE RECORDS SUMMARY | 2024-07-05 19:48 | XMS_ITS | Encounter Summary ---
[place] [address] Care Team Providers Care Clinical Trial Coordinator Name Role Phone Edie Ellis MD Primary Care Provider [phone] Reason for Visit * Reason Onset Date Comments Follow-up 05/12/2023 Entresto start s /p bmp results Encounter Details Date Type Department Care Team (Late st Contact Info) Description 05/12/2023 Telephone Cardiology at [address] [phone] Angélica Polo, RN Follow-up (Entresto start s/p [...] 05/12/2023 1:08 PM EDT Pt returning this junior copywriter's call to report that she is doing well. BMP results received from [facility], scanned and entered into eD-H. Results WNL. [...] AM EDT Hospital Encounter Non-Invasive [place] [address] Arrived documented as of this encounter Visit Diagnoses Not on filedocumented in this encounter Care Teams Clinical Trial Coordinator Relationship Specialty Start Date End Date Edie Ellis MD [address] [place] [address] PCP - General 10/15/10 documented as of this encounter
--- OUTSIDE RECORDS SUMMARY | 2024-07-05 19:48 | XMS_ITS | Encounter Summary ---
Author Organization [facility] [place] [address] Care Team Providers Care Drugless Doctor Name Role Phone Edie Ellis MD Primary Care Provider [phone] Encounter Details Date Type Department Care Team (Latest Contact Info) Description 03/12/2023 8:00 AM EDT Laboratory Appointment Lab [address] [place] [phone] HFrEF (heart failure with reduced ejection fraction) [...] AM EDT Hospital Encounter Non-[place] [phone] Arrived documented as of this encounter Procedures Procedure Name Priority Date/Time Associated Diagnosis Comments HC VENIPUNCTURE Routine 03/12/2023 8:10 AM EDT HFrEF (heart failure with reduced ejection fraction) LDL CHOLESTEROL, DIRECT Routine 03/12/2023 8:10 AM EDT LIPID PANEL (REFLEX DIRECT LDL) Routine 03/12/2023 8:10 AM EDT HFrEF (heart failure with reduced ejection fraction) COMPREHENSIVE METABOLIC PANEL Routine 03/12/2023 8:10 AM EDT HFrEF (heart failure with reduced ejection fraction) documented in this encounter Results * LDL Cholesterol, Direct (03/12/2023 8:10 AM EDT) LDL Cholesterol, Direct 37 mg/dL [facility] Comment: Lowest Risk: <100 mg/dL Lower Risk: 100-129 mg/dL Borderline High Risk: 130-159 mg/dL High Risk: 160-189 mg/dL Very High Risk: >qj=507 mg/dL Blood 03/12/2023 8:10 AM EDT 03/12/2023 8:26 AM EDT Narrative Resulting Agency Comment Spec In Lab Kina RODRÍGUEZ CHEMISTRY ORDERABLES Performing Organization Address City/State/[facility] Co de Phone Number [facility] [place] [address] * Lipid Panel (Reflex Direct LDL) (03/12/2023 8:10 AM EDT) Cholesterol, Total 124 mg/dL [facility] Comment: Lower Risk: <200 mg/dL Average Risk: 200-239 mg/dL Higher Risk: >ok=202 mg/dL Triglyceride 609 mg/dL [facility] Comment: Average Risk/Lower Risk: <150 mg/dL Borderline High Risk: 150-199 mg/dL High Risk: 200-499 mg/dL Very High Risk: >ao=001 mg/dL HDL Cholesterol 27 mg/dL [facility] Comment: Males: ?? Higher Risk: <40 mg/dL Females: ?? Higher Risk: <50 mg/dL LDL Cholesterol Not Calculated [facility] Comment: Calculated LDL value is not valid for triglycerides greater than 400 mg/dl. Lowest Risk: <100 mg/dL Lower Risk: 100-129 mg/dL Borderline High Risk: 130-159 mg/dL High Risk: 160-189 mg/dL Very High Risk: >rn=115 mg/dL Cholesterol/HDL Ratio 4.6 ratio [facility] Lipid Interpretation See Note [facility] Comment: Lipid management should be guided by a patient? s ASCVD risk, goals and preferences. ACC/AHA Guidelines recommend high intensity statin if clinical ASCVD or LDL greater than or equal to 190 mg/dL. http://Talasim.com/DUO-TCI-Lxgddgmwi Adults aged 40-75 with LDL 70-189 mg/dL should have their 10 year ASCVD risk estimated with the ACC/AHA ASCVD risk claims vice president http://tools.acc.org/UYOCV-Nefk-Zuuqijrwc/ Statin should be discussed if risk greater [...] Lab Loyda Barrios MD CHEMISTRY ORDERABL ES [facility] [place] [address] * (ABNORMAL) Comprehensive metabolic panel (non-fasting) (03/12/2023 8:10 AM EDT) Glucose 193 65 - 199 mg/dL [facility] Comment:Diabetes: >=200 mg/d L plus symptoms Blood Urea Nitrogen 10 8 - 18 mg/dL [facility] Creatinine 0.53(L) 0.70 - 1.20 mg/dL [facility] Sodium 137 135 - 145 mmol/L [facility] Potassium 3.9 3.5 - 5.0 mmol/L [facility] Comment: Please note: ??Patients with WBC >100,000 may have falsely elevated Potassium levels. ??For accurate Potassium quantification in these patients send serum separator tube (gold top) for subsequent determinations. ??Contact the Clinical Chemistry Laboratory if there are any questions. Chloride 99 98 - 107 mmol/L [facility] Carbon Dioxide 26 22 - 31 mmol/L [facility] Anion Gap 12 5 - 15 mmol/L [facility] Calcium 9.2 8.5 - 10.5 mg/dL [facility] Protein, Total 6.7 6.1 - 8.0 g/dL [facility] Albumin 4.0 3.2 - 5.2 g/dL [facility] Aspartate Aminotransferase 22 0 - 30 unit/L [facility] Alanine Aminotransferase 16 0 - 30 unit/L [facility] Alkaline Phosphatase 59 35 - 105 unit/L [facility] Bilirubin, Total 0.4 0.2 - 1.3 mg/dL [facility] Est Glomerular Filtration Rate 115 >=60 mL/min/1. 73 m?? [facility] Comment: This patient's estimated GFR was [...] Narrative Resulting Agency Comment Spec In Lab oLyda Barrios MD CHEMISTRY ORDERABL ES [facility] [place] [address] * pro-Brain Natriuretic Peptide (03/12/2023 8:10 AM EDT) NT-proBNP 49 <=124 pg/mL [facility] Blood 03/12/2023 8:10 AM EDT 03/12/2023 8:19 AM EDT Narrative Resulting Agency Comment Spec In Lab Loyda Barrios MD CHEMISTRY ORDERABL ES Performing Organization Address City/State/[facility] Co de Phone Number [facility] [place] [address] documented in this encounter Visit Diagnoses Diagnosis HFrEF (heart failure with reduced ejection fraction) documented in this encounter Care Teams Drugless Doctor Relationship Specialty Start Date End Date Edie Ellis MD [address] [place] [address] PCP - General 10/15/10 documented as of this encounter
--- OUTSIDE RECORDS SUMMARY | 2024-07-05 19:48 | XMS_ITS | Encounter Summary ---
Author Organization [facility] [place] [address] Care Team Providers Care Instant Printer Operator Name Role Phone Edie Ellis MD Primary Care Provider [phone] Reason for Visit * Auth/Cert (Routine) Specialty Diagnoses / Procedures Referred By Geraldine olmedo Referred To Contact Diagnoses Cardiomyopathy, unspecified type [I42.9]Syncope, unspecified syncope type [R55]Family history of sudden cardiac [Z82.41] Procedures ELECTROPHYSIOLOGY PROCEDURE Jonathan Willson MD [facility] [place] [address] [facility] Referral ID Status Reason Start Date Expiration Date Visits Re quested Visits Authorized [id number] 1 1 Encounter Details Date Type Department Care Team (Late st Contact Info) Description 07/14/2023 7:43 AM EDT Anesthesia [place] [address] Sae Morel MD [facility] [place] [address] Anesthesia Record Procedure Summary Procedure Name Responsible [...] questions and acknowledgement of understanding Yessi Gautam, PREVENTION COORDINATOR 0919 Break/Relief Out 0949 AN Defib 10 [...] device pocket 07/14/23 0805 by Alecia Clark, CHARLY (RETIRED) Peripheral IV Line - Single Lumen 07/14/23; 0701; cephalic vein (lateral side of arm), left; 20 gauge; distraction, intradermal injection, tolerated well; removed per physician, removed per policy/procedure, catheter/device intact; 07/15/23; 10507/14/23 0701 by Nesha Vargas RN 07/15/23 1059 by Donna Lemus RN ETT Mask Ventilation: Ea sy (1); ETT Type: Oral, Cuffed; ETT Size: 7 mm; Mac Blade: 3; Notes: Asleep, Pre-O2, Stylette; Attempts: 1; Laryngoscopy Grade: 1; ETT Placement Verified By: Capnometry, Auscultation; Secured at Teeth: 20 cm; Inserted by: Willie Pittman CRNA; Removal Date: 07/14/23; Removal Time: 10307/14/23 0818 by Michelle Pittman CRNA 07/14/23 1036 by Michelle Pittman CRNA (RETIRED) Peripheral IV Line - Single Lumen 07/14/23; 08; dorsal arch vein (top of hand), right; [id number]-mog-[id number] catheter system; 18 gauge; MD Jack; removed per physician, removed per policy/procedure, catheter/device intact; 07/15/23; 10507/14/23 08 by Michelle Pittman CRNA 07/15/23 1059 by Donna Lemus, CHARLY documented in this encounter Social History Tobacco [...] Procedure Summary Date: 07/14/23 Room / Location: [facility] A-LAB ROOM 3 / [facility] EP LABS Anesthesia Start: 742 Anesthesia Stop: 1054 Procedure: ELECTROPHYSIOLOGY PROCEDURE Diagnosis: Cardiomyopathy, unspecified type Syncope, unspecified syncope type Family history of sudden cardiac (Cardiomyopathy, unspecified type [I42.9]Syncope, unspecified syncope type [R55]Family history of sudden cardiac [Z82.41]) Providers: Jonathan Willson MD Responsible Provider: Sae Morel MD Anesthesia Type: general ASA Status: 3 All Anesthesia Providers: Anesthesiologist: Sae Morel MD PREVENTION COORDINATOR: Michelle Pittman CRNA Vitals Value Taken Time BP 110/74 07/14/23 1200 Temp 36.3 ??C (97.3 ??F) 07/14/23 1051 Pulse 84 07/14/23 1224 Resp 24 07/14/23 1224 SpO2 93 % 07/14/23 1224 Pain Level 6 07/14/23 1214 Vitals shown include unvalidated device data. Patient Location: PACU/[facility] Level of Consciousness: Conscious but Sleepy [...] ARRAY, EPIDURAL performed by CARINE CHATTERJEE at [facility] MAIN OR PRO UNLISTED PROCEDURE, MUSCULOSKELETAL SYSTEM, [...] consented to blood products. Plan discussed with PREVENTION COORDINATOR. Attending Note: Jammie Gottlieb is a 48 [...] AM EDT Hospital Encounter Non-In[place] [address] Arrived documented as of [...] mg documented in this encounter Care Teams Instant Printer Operator Relationship Specialty Start Date End Date Edie Ellis MD [address] [place] [address] PCP - General 10/15/10 documented as of this encounter
--- OUTSIDE RECORDS SUMMARY | 2024-07-05 19:48 | XMS_ITS | Encounter Summary ---
Author Organization [facility] Address [facility] [place] [address] Care Team Providers Care Music Composer Name Role Phone Edie Ellis MD Primary Care Provider [phone] Encounter Details Date Type Department Care Team (Late st Contact Info) Description 07/02/2023 2:00 PM EDT Office Visit Cardiology at [address] [address] Leelee Miller PA [facility] [place] [address] Cardiomyopathy, unspecified type; Syncope, unspecified syncope type; [...] by the Advanced Heart Failure team at [facility] for her familial dilated cardiomyopathy with presence [...] complete loss of consciousness was sometime around Yeni. She believes that since starting the Entresto [...] have palpitations infrequently. She was born in [place], [place]. Now lives in [place], [place]. She has 4 children, her youngest (13) lives at home with her and her ex. She does not work due to [employer] limitations. She has 2 dogs, Cody and [...] Twice a day naloxone (Narcan) 4 mg/actuation [place], Non-Aerosol Once magnesium oxide (MAG-OX) 400 mg [...] today shows sinus rhythm at 98 bpm, ID 134ms, QRS 80ms, QT 376ms, QTc 480ms. [...] MACY Diuretic Discontinued SGLT2i Jardiance ICD or DATA GOVERNANCE ANALYST-D if indicated SCD in PGF, personal syncope, [...] contact EP with any further questions (pager [phone]). ANNE Ramos 4:26 PM 07/02/23 * Rupal Mendez - 07/02/2023 2:00 PM EDTSumolimpia: JOSEPHINE [...] episodes since then. Last one was in yeni time. Ambulatory monitoring holter monitor in January [...] Twice a day naloxone (Narcan) 4 mg/actuation [place], Non-Aerosol Once magnesium oxide (MAG-OX) 400 mg [...] AM EDT Hospital Encounter [place] [phone] Arrived documented as of this encounter Procedures [...] (Bezet) 467 ms MUSE SYSTEM Calculated P [place] 2 degrees MUSE SYSTEM Calculated R [place] -14 degrees MUSE SYSTEM Calculated T [place] 16 degrees MUSE SYSTEM INTERPRETATION Normal sinus rhythm Septal infarct , age undetermined Poor R wave progression Abnormal ECG When compared with ECG of 02-JUL-2023 14:20, Septal infarct is now Present I personally reviewed the tracing and edited the fellows interpretation Confirmed by fellow Oscar Kidd ([id number]) on 07/14/2023 9:20:46 AM Confirmed by MD Sophie, Loyda ([id number]) on 07/14/2023 5:28:26 PM MUSE SYSTEM 07/14/2023 6:51 AM EDT 07/14/2023 5:28 PM EDT Tonia Crystal MD ECG ORDERABLES Performing Organization Address City/[facility] Co de Phone Number MUSE SYSTEM * EKG 12 Lead (07/02/2023 2:20 PM EDT) Ventricular rate 98 BPM MUSE SYSTEM Atrial Rate 98 BPM MUSE SYSTEM P-R Interval 134 ms MUSE SYSTEM QRS Duration 80 ms MUSE SYSTEM Q-T Interval 376 ms MUSE SYSTEM QTC Calculated (Bezet) 480 ms MUSE SYSTEM Calculated P [place] 51 degrees MUSE SYSTEM Calculated R [place] -3 degrees MUSE SYSTEM Calculated T [place] 37 degrees MUSE SYSTEM INTERPRETATION Normal sinus rhythm Low voltage QRS Prolonged QT Abnormal ECG When compared with ECG of 12-MAR-2023 09:46, No significant change was found Confirmed by MD Helder, Nikhil ([id number]) on 07/02/2023 4:46:49 PM MUSE SYSTEM 07/02/2023 2:20 PM EDT 07/02/2023 4:46 PM EDT Unknown ECG ORDERABLES Performing Organization Address City/[facility] Co de Phone Number MUSE SYSTEM documented in this encounter Visit Diagnoses Diagnosis Cardiomyopathy, unspecified type Syncope, unspecified syncope type Family history of sudden cardiac Family history of sudden cardiac (SCD) documented in this encounter Care Teams Music Composer Relationship Specialty Start Date End Date Edie Ellis MD [address] [place] [address] PCP - General 10/15/10 documented as of this encounter
--- OUTSIDE RECORDS SUMMARY | 2024-07-05 19:48 | XMS_ITS | Encounter Summary ---
Author Organization [facility] [place] [address] Care Team Providers Care Auto Body Repairer Name Role Phone Edie Ellis MD Primary Care Provider [phone] Encounter Details Date Type Department Care Team (Late st Contact Info) Description 06/03/2023 Telephone Cardiology at [address] [phone] Angélica Polo RN Social History Tobacco Use [...] to [facility]NE [facility]ad [facility]. * Telephone Encounter - Angélica Polo RN [...] will need to send an order to [facility]. Angélica Peace ----- Message from Jammie [...] [phone] Thank you Phone number [phone] documented in this encounter Plan of Treatment Upcoming Encounters Date Type Department Care Team (Late st Contact Info) Description 07/09/2024 10:00 AM EDT Hospital Encounter Non-[place] [address] Arrived documented as of this encounter Visit Diagnoses Not on filedocumented in this encounter Care Teams Auto Body Repairer Relationship Specialty Start Date End Date Edie Ellis MD [address] [place] [address] PCP - General 10/15/10 documented as of this encounter
--- OUTSIDE RECORDS SUMMARY | 2024-07-05 19:48 | XMS_ITS | Encounter Summary ---
Author Organization [facility] Address [facility] [place] [id number] Care Team Providers Care High School Counselor Name Role Phone Edie Ellis MD Primary Care Provider [phone] Encounter Details Date Type Department Care Team (Latest Contact Info) Description 03/12/2023 10:26 AM EDT - 03/12/2023 11:59 PM EDT Hospital Encounter XRay at [address] [place] [phone] Loyda Barrios MD [facility] [place] [address] Community acquired pneumonia, unspecified laterality Discharge Disposition: [...] a day 03/12/2015 naloxone (Narcan) 4 mg/actuation [place], Non-Aerosol Once 03/10/2019 magnesium oxide (MAG-OX) 400 [...] AM EDT Hospital Encounter Non[place] [address] Arrived documented as of this encounter Procedures [...] who have questions please contact the health regular senior care provider that requested your imaging first. ? Electronically signed by: Felisa Carlisle MD, [facility] ([phone]), at 03/12/2023 11:56 AM Narrative 03/12/2023 11:56 [...] patients who have questions please contactthe health regular senior care provider that requested your imaging first. Loyda Barrios MD IMG DX ORDERABLES documented in this encounter Visit Diagnoses Diagnosis Community acquired pneumonia, unspecified laterality documented in this encounter Care Teams High School Counselor Relationship Specialty Start Date End Date Edie Ellis MD [address] [place] [address] [address] [place] [address] PCP - General 10/15/10 documented as of this encounter
--- OUTSIDE RECORDS SUMMARY | 2024-07-05 19:48 | XMS_ITS | Encounter Summary ---
Author Organization [facility] [place] [address] Care Team Providers Care Vamper Name Role Phone Edie Ellis MD Primary Care Provider [phone] Encounter Details Date Type Department Care Team (Late st Contact Info) Description 01/23/2023 Ancillary Procedure [place] [address] Edie Ellis MD [employer] [address] [place], [place] [id number] Social History Tobacco Use Types Packs/Day Years [...] AM EDT Hospital Encounter Non[place] [phone] Arrived documented as of this encounter Procedures Procedure Name Priority Date/Time Associated Diagnosis Comments FILM LIBRARY STORAGE ONLY MR SPINE Routine 01/23/2023 12:00 AM EST documented in this encounter Results * Film Library- Storage Only MR Spine (01/23/2023 12:00 AM EST) Narrative [facility] - 01/25/2023 8:57 PM EST This exam is auto-finalizing. It's purpose is for storage only. Edie Ellis MD G FILM LIBRARY ORD ERABLES Performing Organization Address City/State/[facility] Co de Phone Number [place], [place] documented in this encounter Visit Diagnoses Not on filedocumented in this encounter Care Teams Vamper Relationship Specialty Start Date End Date Edie Ellis MD [employer] [address] [place] [address] PCP - General 10/15/10 documented as of this encounter
--- OUTSIDE RECORDS SUMMARY | 2024-07-05 19:48 | XMS_ITS | Encounter Summary ---
[place] [address] Care Team Providers Care Imaging Specialist Name Role Phone Edie Ellis MD Primary Care Provider [phone] Reason for Referral * Consultation (Routine) - Closed Specialty Diagnoses / Procedures Referred By Geraldine olmedo Referred To Contact Orthopaedics Diagnoses RIGHT SHOULDER PARTIAL ROTATOR CUFF TEAR Edie Ellis MD [address] [place] [address] [facility] [address] [place] [id number] Referral ID Status Reason Start Date Expiration Date V isits Requested Visits Authorized [id number] Closed Consult, Test & Treat PCP Updated and/or Approved 04/10/2023 04/09/2024 6 6 Encounter Details Date Type Department Care Team (Latest Contact Info) Description 04/10/2023 Transcribe Orders eDH Incoming Referrals [phone] Edie Ellis MD [address] [place] [address] Traumatic rotator cuff tear, unspecified [...] AM EDT Hospital Encounter [place] [address] Arrived Scheduled Referrals Name Type Priority Associated Diagnoses Orde r Schedule Referral to Orthopaedics Outpatient Referral Routine Traumatic rotator cuff tear, unspecified laterality, unspecified tear extent, subsequent encounter Ordered: 04/10/2023 documented as of this encounter Visit Diagnoses Diagnosis Traumatic rotator cuff tear, unspecified laterality, unspecified tear extent, subsequent encounter documented in this encounter Care Teams Imaging Specialist Relationship Specialty Start Date End Date Edie Ellis MD [address] [place] [address] PCP - General 10/15/10 documented as of this encounter
--- OUTSIDE RECORDS SUMMARY | 2024-07-05 19:48 | XMS_ITS | Encounter Summary ---
[place] [address] Care Team Providers Care Com Writer Name Role Phone Edie Ellis MD Primary Care Provider [phone] Reason for Visit * Reason Onset Date Comments Questions 03/04/2023 Pre-op clearance Encounter Details Date Type Department Care Team (Late st Contact Info) Description 03/04/2023 Telephone Cardiology at [address] [phone] Angélica Polo, RN Questions (Pre-op clearance) Social [...] EDT Hospital Encounter Non-[place]vasive [place] [address] Arrived documented as of this encounter Visit Diagnoses Not on filedocumented in this encounter Care Teams Com Writer Relationship Specialty Start Date End Date Edie Ellis MD [address] [place] [address] PCP - General 10/15/10 documented as of this encounter
--- OUTSIDE RECORDS SUMMARY | 2024-07-05 19:48 | XMS_ITS | Encounter Summary ---
Author Organization [facility] [place] [address] Care Team Providers Care Supervisor Carding Name Role Phone Edie Ellis MD Primary Care Provider [phone] Reason for Visit * Auth/Cert (Routine) Specialty Diagnoses / Procedures Referred By Geraldine t Referred To Contact Diagnoses Cardiomyopathy, unspecified type [I42.9]Syncope, unspecified syncope type [R55]Family history of sudden cardiac [Z82.41] Procedures ELECTROPHYSIOLOGY PROCEDURE Tiger Whiteside MD [facility] [place] [address] [facility] Referral ID Status Reason Start Date Expiration Date Visits Re quested Visits Authorized [id number] 1 1 Encounter Details Date Type Department Care Team (Late st Contact Info) Description 07/14/2023 7:30 AM EDT - 07/14/2023 11:00 AM EDT Surgery [place] [address] Tigre Whiteside MD [facility] [place] [address] ELECTROPHYSIOLOGY PROCEDURE Social History Tobacco Use Types [...] Jammie Gottlieb Patient Age: 48 y.o. Language: Anguill[place] Race: White Ethnicity: Not nor Admit date: 07/14/2023 Discharge date and time: 07/15/2023 1100 Attending Physician: Tigre Whiteside MD Discharge Physician: Tigre Whiteside MD Follow-up Recommendations for Providers: NEW - [employer] subcutaneous ICD Device function is normal Stable for discharge to home Scheduled for ~ day post implant device follow up in device clinic Scheduled for DFT test - Arrive 0700 to Same Day for DFT on Thursday, August 07 Reports moderate pain(expected at implant site), refractory to acetaminophen/ice - #20 hyrdomorphone Refill provided; zero refills Inpatient Provider Contact Information: Cardiac Electrophysiology [phone], option #3 Discharge Diagnoses (Hospital Problems) and Secondary Diagnoses (Chronic Problems): Active Hospital Problems Diagnosis HFrEF (heart failure with reduced ejection fraction) SQ ICD, [employer], single lead Resolved Hospital Problems No [...] for primary prevention subcutaneous ICD. Hospital Course: [employer] SQ ICD implanted without complication. Non-inducible [...] Data is abnormally low Treatments: Device Data: Concrete Hopper Operator Model # Serial # Generator [employer] [id number] Ventricular Lead [employer] 3501 [id number] Impedance (ohms) Shock (10J) 87 Programming: Rate [...] 1 capsule Refills: 0 naloxone 4 mg/actuation [place], Non-Aerosol Commonly known as: Narcan Once Refills: [...] the incision. Make sure to use a cloth framer (such as a towel) in between the [...] if you have any personal concerns, contact [facility] Electrophysiology at [phone]. Do not attempt to readjust the Clozex?? [...] questions. The office scheduling phone number is [phone]. If you have any questions or concerns about this product, please call the device clinic at [phone]. General Instructions None Future Appointments and Orders Future Appointments and Orders Future Appointments Provider Department Dept Phone 07/20/2023 1:00 PM PRE ANESTHESIA, CONSULT Same Day at [facility] Arrive at: Home [phone] To view instructions for your video visit, click here, or visit this website: [email or web address] If you have not previously downloaded the [facility] patient portal software, [employer], or the [employer] joe, please do so by clicking one of these links below or searching in your device's joe store. For all desktops/laptops; for Android devices; for Apple/Brille24S devices FAQs: Join Video Visit button not connecting? - This may be due to pop-up blockers. - Click this link to see: How to Disable Pop-Up Block for myDH Video Visits Zoom asking for a meeting password? - Exit out of the Zoom program and try the link again 07/24/2023 9:30 AM Tila Elmore RN Cardiology at [facility] Arrive at: Clinical Education Specialist Area [phone] 10/13/2023 9:30 AM Tila Elmore RN Cardiology at [facility] Arrive at: Clinical Education Specialist Area [phone] Discharge References/Attachments None documented in this encounter Discharge Instructions * Patient Instructions* Hunter Mcclain PA - 07/14/2023 10:55 AM EDT FINAL ICD RECOMMENDATIONS: 1. Standard post implant discharge instructions (see below): 2. Medications as listed above. 3. You may use ice packs over the incision. Make sure to use a cloth framer (such as a towel) in between the [...] if you have any personal concerns, contact [facility] Electrophysiology at [phone]. Do not attempt to readjust the Clozex?? [...] questions. The office scheduling phone number is [phone]. If you have any questions or concerns about this product, please call the device clinic at [phone]. documented in this encounter Medications at Time [...] a day 03/12/2015 naloxone (Narcan) 4 mg/actuation [place], Non-Aerosol Once 03/10/2019 magnesium oxide (MAG-OX) 400 [...] Lemus RN - 07/15/2023 12:51 PM EDT [facility] Short Stay Unit Discharge Note All [...] Electrophysiology Discharge Day Note Patient Name: Jammie Gottlibe Service: EP Responsible Attending: Tigre Whiteside MD Reason for continued hospitalization: Cardiomyopathy; POD#1 SQ ICD implantation Active Problems: Active Hospital Problems Diagnosis HFrEF (heart failure with reduced ejection fraction) SQ ICD, [employer], single lead Resolved Hospital Problems No resolved problems to display. Interval History: 48 y.o. female with a history of non-ischemic cardiomyopathy with known TTN gene, HTN, DM2, syncope, EF 42%, admitted for primary prevention subcutaneous ICD. [employer] SQ ICD implanted without complication. Non-inducible [...] 199 mg/dL Pertinent Radiographic/Diagnostic Results: Device Data: Concrete Hopper Operator Model # Serial # Generator [employer] [id number] Ventricular Lead [employer] 3501 [id number] Impedance (ohms) Shock (10J) 87 Programming: Rate [...] 42%, admitted for primary prevention subcutaneous ICD. [employer] SQ ICD implanted without complication. Non-inducible for VT/VF. 10j shock impedance = 87 ohms. Plan: Device function is normal Stable for discharge to home Scheduled for DFT test - Arrive 0700 to Same Day for DFT on Thursday, August 07 Provider: ANNE Oneal EP Consult attending physician: Juan Taylor MD EP Consult positional pager #[phone](EPMD) EP Device interrogation positional pager # [phone] Associated attestation - Hero Taylor MD - [...] ~ 10 days. Hero Taylor MD, PhD, [facility] Cardiac Electrophysiology * Leelee Barone RN - 07/14/2023 11:10 AM EDT 1050: Jammie Gottlieb arrived from in a bed to PACU 1. Pt was attached to monitors, alarms set appropriately & audible. NSR on court monitor, lungs are clear. Sternal & Flank [...] ARRAY, EPIDURAL performed by CARINE CHATTERJEE at [facility] MAIN OR PRO UNLISTED PROCEDURE, MUSCULOSKELETAL [...] completed. Hola Mahan MD Cardiac Electrophysiology Fellow [facility] Pager [phone] 07/14/2023 Addendum 48 y.o.woman with longstanding NICM, [...] visit, click here, or visit this website: [email or web address] If you have not previously downloaded the [facility] patient portal software, [employer], or the [employer] joe, please do so by clicking one of these links below or searching in your device's joe store. For all desktops/laptops; for Android devices; for Apple/Brille24S devices FAQs: Join Video Visit button not [...] AM (Arrive by 9:10 AM) Cardiology at [address] [address] Arrive at: Clinical Education Specialist Area 4A OCT 13 Office Visit with Tila Anand RN Thursday 9:30 AM (Arrive by 9:10 AM) Cardiology at [address] [phone] Arrive at: Clinical Education Specialist Area 4A Transportation: family or friend will [...] Encounter Non-In[place] [address] Arrived documented as of this encounter Procedures Procedure Name Priority Date/Time Associated Diagnosis Comments XR CHEST PA AND LATERAL Routine 07/15/20 6:54 AM EDT POCT GLUCOSE Routine 07/14/2023 10:55 AM EDT ELECTROPHYSIOLOGY PROCEDURE Routine 07/14/2023 8:45 AM EDT Cardiomyopathy, unspecified type Syncope, unspecified syncope type Family history of sudden cardiac BASIC METABOLIC PANEL STAT 07/14/2023 7:00 AM EDT EKG 12-LEAD [...] who have questions please contact the health day care teacher that requested your imaging first. ? Electronically signed by: Radha Brown MD, [facility] ??([phone]), at 07/15/2023 8:35 AM Narrative 07/15/2023 8:35 [...] patients who have questions please contactthe health day care teacher that requested your imaging first. Electronically signed by: Radha Brown MD, [facility]([phone]), at 07/15/2023 8:35 AM Tigre Whiteside MD IMG DX ORDERABLES * POCT Glucose (07/14/2023 10:55 AM EDT) Glucose, POC 135 65 - 199 mg/dL [facility] Comment: Supplemental ranges: <140 mg/dL before meals <180 mg/dL all other times of the day Blood 07/14/2023 10:5 5 AM EDT 07/14/2023 10:55 AM EDT Tigre Whiteside MD POINT OF CARE TEST O RDERABLES Performing Organization Address City/State/[facility] Co de Phone Number [facility] [place] [address] * ELECTROPHYSIOLOGY PROCEDURE (07/14/2023 8:45 AM EDT) Anatomical Region Laterality Modality Other Narrative 07/14/2023 3:32 PM EDT Table formatting from the original result was not included. [facility] Electrophysiology Procedure Note Patient Name: Jammie Gottlieb Patient : 1975 [employer] Door Liner: Tigre Whiteside MD Fellow: Hola Mahan MD [...] the entire procedure. Lead and Generator Data: Concrete Hopper Operator Model # Serial # Generator [employer] [id number] Ventricular Lead [employer] 3501 [id number] Data: Impedance (ohms) Shock (10J) 87 Programming: [...] defibrillation threshold testing (attempted) I was the freezing machine operator, present for the entire procedure and personally edited this note TIGRE WHITESIDE MD Tigre Whiteside MD EP PROCEDURE ORDERAB LES * (ABNORMAL) Basic Metabolic Panel (non-fasting) (07/14/2023 7:00 AM EDT) Glucose 161 65 - 199 mg/dL [facility] Comment:Diabetes: >=200 mg/d L plus symptoms Blood Urea Nitrogen 14 8 - 18 mg/dL [facility] Creatinine 0.44(L) 0.70 - 1.20 mg/dL [facility] Sodium 139 135 - 145 mmol/L [facility] Potassium 4.6 3.5 - 5.0 mmol/L [facility] Comment: Please note: ??Patients with WBC >100,000 may have falsely elevated Potassium levels. ??For accurate Potassium quantification in these patients send serum separator tube (gold top) for subsequent determinations. ??Contact the Clinical Chemistry Laboratory if there are any questions. Chloride 105 98 - 107 mmol/L [facility] Carbon Dioxide 25 22 - 31 mmol/L [facility] Anion Gap 9 5 - 15 mmol/L [facility] Calcium 8.9 8.5 - 10.5 mg/dL [facility] Est Glomerular Filtration Rate 119 >=60 mL/min/1. 73 m?? [facility] Comment: This patient's estimated GFR was [...] Whiteside MD CHEMISTRY ORDERABLES Performing Organization Address City/[facility]/ZIP Co de Phone Number [facility] [place] [place] [address] * EKG 12 Lead (07/14/2023 6:51 AM EDT) Ventricular rate 79 BPM MUSE SYSTEM Atrial Rate 79 BPM MUSE SYSTEM P-R Interval 180 ms MUSE SYSTEM QRS Duration 78 ms MUSE SYSTEM Q-T Interval 408 ms MUSE SYSTEM QTC Calculated (Bezet) 467 ms MUSE SYSTEM Calculated P [place] 2 degrees MUSE SYSTEM Calculated R [place] -14 degrees MUSE SYSTEM Calculated T [place] 16 degrees MUSE SYSTEM INTERPRETATION Normal sinus rhythm Septal infarct , age undetermined Poor R wave progression Abnormal ECG When compared with ECG of 02-JUL-2023 14:20, Septal infarct is now Present I personally reviewed the tracing and edited the fellows interpretation Confirmed by fellow Oscar Kidd ([id number]) on 07/14/2023 9:20:46 AM Confirmed by MD Sophie, Shelbiana ([id number]) on 07/14/2023 5:28:26 PM MUSE SYSTEM 07/14/2023 6:51 AM EDT 07/14/2023 5:28 PM EDT Tonia Crystal MD ECG ORDERABLES Performing Organization Address City/[facility]/ZIP Co de Phone Number MUSE SYSTEM * POCT Glucose (07/14/2023 6:37 AM EDT) Glucose, POC 156 65 - 199 mg/dL [facility] Comment: Supplemental ranges: <140 mg/dL before meals <180 mg/dL all other times of the day Blood 07/14/2023 6:37 AM EDT 07/14/2023 6:37 AM EDT Tigre Whiteside MD POINT [place] [address] documented in this encounter Visit Diagnoses Diagnosis [...] Contraindicated - Comment: pt took this AM) 802 (Given - Provider: Donna Lemus RN) DULoxetine DR (Cymbalta) capsule 40 mg 40 mg, Oral, EVERY EVENING, First dose (after last modification) on Thu07/14/23 at 1700, Until Discontinued 2024 (Given - Provider: Carmen Barnett, CHARLY) estradioL (Estrace) tablet 1 mg 1 mg, Oral, DAILY, First dose on Thu07/15/23 at 0900, Until Discontinued, DO NOT SPLIT, CRUSH OR OPEN, Routine 1329 (Not Given - Provider: Donna Lemus RN - Reason: Medication not available) 803 (Given - Provider: Donna Lemus RN) estradioL [...] Routine, Indication for (Active or Suspected): Prophylaxis 1329 (Not Given - Provider: Donna Lemus [...] refused)2023 (Given - Provider: Carmen Barnett RN) 08 (Given - Provider: Donna Lemus, CHARLY) metFORMIN XR (Glucophage XR) tablet 500 mg 500 mg, Oral, 2 TIMES DAILY, First dose on Thu07/14/23 at 1700, Until Discontinued, Routine 1700 (Not Given - Provider: Donna Lemus RN [...] available)2023 (Given - Provider: Carmen Barnett RN) 08 (Given - Provider: Donna Lemus RN) rosuvastatin (Crestor) tablet 10 mg 10 mg, Oral, EVERY EVENING, First dose on Thu07/14/23 at 1700, Until Discontinued, Routine 1703 (Given - Provider: Donna Lemus, CHARLY) sacubitriL-valsartan (Entresto) 97-103 mg per tablet 1 tablet 1 tablet, Oral, 2 TIMES DAILY, First dose on Thu07/14/23 at 1330, Until Discontinued, Routine, Is this a continuation of home medication? Yes 1330 (Not Given - Provider: Donna Lemus, RN - Reason: Patient/family refused)2022 (Given - Provider: Carmen Barnett, CHARLY) 08 (Given - Provider: Donna Lemus, CHARLY) vancomycin [...] RN) 0732 (Given - Provider: Donna Lemus, RN)1245 (Given - Provider: Donna Lemus, CHARLY) clonazePAM (KlonoPIN) tablet 1 mg 1 mg, [...] Routine documented in this encounter Care Teams Supervisor Carding Relationship Specialty Start Date End Date Edie Ellis MD [address] [place] [address] PCP - General 10/15/10 documented as of this encounter
--- OUTSIDE RECORDS SUMMARY | 2024-07-05 19:48 | XMS_ITS | Encounter Summary ---
Author Organization [facility] Address [facility] [place] [address] Care Team Providers Care Case Coordinator Name Role Phone Edie Ellis MD Primary Care Provider [phone] Encounter Details Date Type Department Care Team (Late st Contact Info) Description 03/12/2023 9:00 AM EDT Office Visit Cardiology at [address] [address] Kina Awad PA [facility] [address] HFrEF (heart failure with reduced ejection fraction); [...] the original note were not included. [facility] Section of Advanced Heart Failure Cardiology [facility] [place] [address] OUTPATIENT VISIT DATE: 06/09/21 OUTPATIENT VISIT TYPE: [...] Last syncopal event Aug 2020, admitted to [facility]. Loss of urine. Placed on Keppra, released [...] she states she feels like she can't case picker her arms or move her neck well. This used to present as aches and pains and LBP with some joint pain. More recently, c/o muscle weakness. 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 No obvious EMG changes or elevation in CK and had a negative muscle biopsy. Discussed today: Admitted to [facility] in August, transferred to [place]. PNA, required intubation. Since that time, hashad [...] by mouth daily. ??? Lancets Misc by [facility]Non-Drug; Combo Route) route daily. ??? Miscellaneous Medical Supply Mis 1 strip by [facility]Non-Drug; Combo Route) route daily. ??? clonAZEpam (KLONOPIN) [...] Clinical summary ?? A Likely Pathogenic variant, [id number].[id number]>T ([id number]*), was identified in TTN. The TTN gene is associated with autosomal dominant dilated cardiomyopathy (DCM) (MedGen UID: 2880).Additionally, the TTN gene is associated with a diverse group of disorders affecting skeletal muscles, including autosomal dominant tibial muscular dystrophy (TMD) (MedGen UID: 892582) and autosomal recessive limb- girdle muscular dystrophy type 2J (LGMD2J) (MedGen UID: 667266), autosomal recessive centronuclear myopathy (CNM) (PMID: 75316702), and autosomal dominant hereditary myopathy with earlyrespiratory failure (HMERF)(MedGen UID: 822388). Additional TTN-related conditions have also been reported (OMIM: 243820).This result is consistent with a predisposition to, or diagnosis of, autosomal dominant TTN-related conditions. TTN is associated with a clinically heterogeneous group of disorders, collectively known as the titinopathies, which can have distinct and/or overlapping features (PMID: 65853604, 29698220, 01744611). Correlation with a particular condition should include a review of the Variant. Details section of the report below. Pathogenic cjcg-jb-gaoywssw variants in the A-band are associated with an increased risk of autosomal dominant DCM, although associations with other types of cardiomyopathy have been suggested (PMID: 51680501, 33807833). DCM is defined by left ventricular dilation and systolic dysfunction. Symptoms include palpitations, dizziness, syncope, chestpain, shortness of breath, heart failure and in some cases sudden cardiac arrest/ (PMID: 79087005, 34816574). For more information about diagnosis and management of dilated cardiomyopathy, please visit [employer]'s website at [email or web address]. Some pathogenic missense variants in exon 343 ofthe A band are only known to be associated with HMERF. HMERF is an early adult-onsetdisorder characterized by proximal and distal skeletal muscle weakness of the upper and lower extremities and respiratory insufficiency (PMID: 34435656, 12419701). Muscle histopathology frequentlyiden tifies inclusion bodies and rimmed vacuoles (PMID: 35070527). Disease progression often includes loss of the ability to walk and the need for permanent ventilatory support relatively early in life (PMID: 26053305). Clinical, MRI, and histopathology similarities exist between HMERF and myofibrillar myopathies (PMID: 18654554). Pathogenic variants in the A-band may also be associated with autosomalrecessive neuromusculardisorders, including centronuclear myopathy and limb-girdle muscular dystrophy (PMID: 48656387, 16835442). Biological relatives have a chance of being [...] Lasix 2/2 intravasculation volume depletion ICD or PARKING LINE PAINTER-D if indicated Not indicated with LVEF >35% [...] AM EDT Hospital Encounter Non[place] [address] Arrived documented as of this encounter Results [...] who have questions please contact the health respiratory care specialist that requested your imaging first. ? Electronically signed by: Felisa Carlisle MD, [facility] ([phone]), at 03/12/2023 11:56 AM Narrative 03/12/2023 11:56 [...] patients who have questions please contactthe health respiratory care specialist that requested your imaging first. Loyda Barrios MD IMG DX ORDERABLES * pro-Brain Natriuretic Peptide (03/12/2023 8:10 AM EDT) NT-proBNP 49 <=124 pg/mL [facility] Blood 03/12/2023 8:10 AM EDT 03/12/2023 8:19 AM EDT Narrative Resulting Agency Comment Spec In Lab Loyda Barrios MD CHEMISTRY ORDERABL ES [facility] [place] [address] * (ABNORMAL) Comprehensive metabolic panel (non-fasting) (03/12/2023 8:10 AM EDT) Glucose 193 65 - 199 mg/dL [facility] Comment:Diabetes: >=200 mg/d L plus symptoms Blood Urea Nitrogen 10 8 - 18 mg/dL [facility] Creatinine 0.53(L) 0.70 - 1.20 mg/dL [facility] Sodium 137 135 - 145 mmol/L [facility] Potassium 3.9 3.5 - 5.0 mmol/L [facility] Comment: Please note: ??Patients with WBC >100,000 may have falsely elevated Potassium levels. ??For accurate Potassium quantification in these patients send serum separator tube (gold top) for subsequent determinations. ??Contact the Clinical Chemistry Laboratory if there are any questions. Chloride 99 98 - 107 mmol/L [facility] Carbon Dioxide 26 22 - 31 mmol/L [facility] Anion Gap 12 5 - 15 mmol/L [facility] Calcium 9.2 8.5 - 10.5 mg/dL [facility] Protein, Total 6.7 6.1 - 8.0 g/dL [facility] Albumin 4.0 3.2 - 5.2 g/dL [facility] Aspartate Aminotransferase 22 0 - 30 unit/L [facility] Alanine Aminotransferase 16 0 - 30 unit/L [facility] Alkaline Phosphatase 59 35 - 105 unit/L [facility] Bilirubin, Total 0.4 0.2 - 1.3 mg/dL [facility] Est Glomerular Filtration Rate 115 >=60 mL/min/1. 73 m?? [facility] Comment: This patient's estimated GFR [...] Lab Loyda Barrios MD CHEMISTRY ORDERABL ES [facility] [place] [address] * Lipid Panel (Reflex Direct LDL) (03/12/2023 8:10 AM EDT) Cholesterol, Total 124 mg/dL [facility] Comment: Lower Risk: <200 mg/dL Average Risk: 200-239 mg/dL Higher Risk: >ww=068 mg/dL Triglyceride 609 mg/dL [facility] Comment: Average Risk/Lower Risk: <150 mg/dL Borderline High Risk: 150-199 mg/dL High Risk: 200-499 mg/dL Very High Risk: >mr=643 mg/dL HDL Cholesterol 27 mg/dL [facility] Comment: Males: ?? Higher Risk: <40 mg/dL Females: ?? Higher Risk: <50 mg/dL LDL Cholesterol Not Calculated [facility] Comment: Calculated LDL value is not valid for triglycerides greater than 400 mg/dl. Lowest Risk: <100 mg/dL Lower Risk: 100-129 mg/dL Borderline High Risk: 130-159 mg/dL High Risk: 160-189 mg/dL Very High Risk: >yi=839 mg/dL Cholesterol/HDL Ratio 4.6 ratio [facility] Lipid Interpretation See Note [facility] Comment: Lipid management should be guided by a patient? s ASCVD risk, goals and preferences. ACC/AHA Guidelines recommend high intensity statin if clinical ASCVD or LDL greater than or equal to 190 mg/dL. http://tinyurl.com/ZSN-FVT-Wfgcvehzt Adults aged 40-75 with LDL 70-189 mg/dL should have their 10 year ASCVD risk estimated with the ACC/AHA ASCVD risk yardage estimator http://tools.acc.org/BISZT-Pjed-Wsblgvhec/ Statin should be discussed if risk greater [...] MD CHEMISTRY ORDERABL ES Performing Organization Address City/State/[facility] Co de Phone Number [facility] [place] [address] documented in this encounter Visit Diagnoses Diagnosis HFrEF (heart failure with reduced ejection fraction) Community acquired pneumonia, unspecified laterality Other chest pain Community acquired pneumonia, unspecified laterality documented in this encounter Care Teams Case Coordinator Relationship Specialty Start Date End Date Edie Ellis MD [facility] [address] [place] [address] PCP - General 10/15/10 documented as of this encounter
--- OUTSIDE RECORDS SUMMARY | 2024-07-05 19:48 | XMS_ITS | Encounter Summary ---
Author Organization [facility] [place] [address] Care Team Providers Care Executive Director Contract Shop Name Role Phone Edie Ellis MD Primary Care Provider [phone] Encounter Details Date Type Department Care Team (Late st Contact Info) Description 09/07/2022 7:40 PM EDT Ancillary Procedure [place] [address] Ngoc Hernandez MD [facility] [place] [address] Social History Tobacco Use Types Packs/Day Years [...] AM EDT Hospital Encounter Non[place] [address] Arrived documented as of this encounter Procedures [...] Hernandez MD IMG FILM LIBRARY ORD ERABLES [place], [place] documented in this encounter Visit Diagnoses Not on filedocumented in this encounter Care Teams Executive Director Contract Shop Relationship Specialty Start Date End Date Edie Ellis MD [facility] [address] [place] [address] PCP - General 10/15/10 documented as of this encounter
--- OUTSIDE RECORDS SUMMARY | 2024-07-05 19:48 | XMS_ITS | Encounter Summary ---
Author Organization [facility] [place] [address] Care Team Providers Care Dispersion Mixer Name Role Phone Edie Ellis MD Primary Care Provider [phone] Reason for Visit * Reason Onset Date Comments Prior Authorization 03/18/2023 Zufkk-2-uyhy Ethyl Esters 1GM capsules Encounter Details Date Type Department Care Team (Late st Contact Info) Description 03/18/2023 Telephone Cardiology at [address] [address] Rasta Grewal CMA Prior Authorization (Ekgqd-2-gtuw Ethyl Esters 1GM capsules) Social History Tobacco [...] PA Outcome: PA Denial [place] [address] DENIED: Shkvy-1-ptjb Ethyl Esters 1GM capsules Case/Reference #: ANNE Additional Information from Insurance: * Telephone Encounter - Rasta Grewal CMA - 03/18/2023 8:22 AM EDT Images from the original note were not included. ANNE Submitted Submitted Date: Submitted Date: 03/18/2023 Medication Prior Authorization Patient: Jammie Gottlieb Patient : 1975 Insurance Company: [employer] Medicare Sent via: Purple Binder Bhakta: [id number] Physician: Kina Awad PA Medication [...] AM EDT Hospital Encounter Non[place] [address] Arrived documented as of this encounter Visit Diagnoses Not on filedocumented in this encounter Care Teams Dispersion Mixer Relationship Specialty Start Date End Date Edie Ellis MD [address] [place] [address] PCP - General 10/15/10 documented as of this encounter
--- OUTSIDE RECORDS SUMMARY | 2024-07-05 19:48 | XMS_ITS | Encounter Summary ---
Author Organization [facility] Address [facility] [place] [address] Care Team Providers Care Oil Change Technician Name Role Phone Edie Ellis MD Primary Care Provider [phone] Reason for Visit * Reason Onset Date Comments Medication Refill 07/07/2023 Entresto 97-10 3 mg bid. Encounter Details Date Type Department Care Team (Late st Contact Info) Description 07/07/2023 Refill Cardiology at [address] [address] Kina Awad PA [facility] [place] [address] Medication Refill (Entresto 97-103 mg bid./) Social [...] AM EDT Hospital Encounter Non-Invasive [place] [address] Arrived documented as of this encounter Visit Diagnoses Diagnosis HFrEF (heart failure with reduced ejection fraction) documented in this encounter Care Teams Oil Change Technician Relationship Specialty Start Date End Date Edie Ellis MD [address] [place] [address] PCP - General 10/15/10 documented as of this encounter
--- OUTSIDE RECORDS SUMMARY | 2024-07-05 19:48 | XMS_ITS | Encounter Summary ---
Author Organization [facility] Address [facility] [address] Care Team Providers Care Marine Fire Fighter Name Role Phone Edie Ellis MD Primary Care Provider [phone] Encounter Details Date Type Department Care Team (Late st Contact Info) Description 07/06/2023 Orders Only Cardiology at [address] [address] Kina Awad PA [facility] [place] [address] Social History Tobacco Use Types Packs/Day Years [...] AM EDT Hospital Encounter Non-[place] [address] Arrived documented as of this encounter Visit Diagnoses Not on filedocumented in this encounter Care Teams Marine Fire Fighter Relationship Specialty Start Date End Date Edie Ellis MD [address] [facility] [address] [place] [address] PCP - General 10/15/10 documented as of this encounter
--- OUTSIDE RECORDS SUMMARY | 2024-07-05 19:48 | XMS_ITS | Encounter Summary ---
[place] [address] Care Team Providers Care Senior It Auditor Name Role Phone Edie Ellis MD Primary Care Provider [phone] Reason for Visit * Reason Comments Prior Authorization Entresto 24-26mg tab let Encounter Details Date Type Department Care Team (Late st Contact Info) Description 04/13/2023 Specialty [place] [address] Alex Bhagat, MUSIC LIBRARY ASSISTANT Social History Tobacco Use Types Packs/Day Years [...] : 1975 Patient Address: [address] [facility] [address] Phone: [phone] (home) Medication Name: ENTRESTO 24 MG-26 MG TABLET Medication ID: [id number] Patient Location: [facility] Patient Location Comment: Medication Strength Frequency Requested: sacubitriL-valsartan (Entresto) 24-26 mg tablet, 1 tablet twice Qty/Day Supply: / New Start: New to Therapy Diagnosis & ICD-10 Code: HFrEF (heart failure with reduced ejection fraction) I50.20 Subscriber Insurance: Dr. TATTOFF) Subscriber Insurance Comment: Phone: Fax: Physician: JOANA CHOI Physician Comment : PA Status: PA Not Needed Insurance mandated Pharmacy: Unknown Fillable at [facility]: Yes Insurance requirements/notes: None Copay: $0.00 Copay assistance: Copay assistance comment: Pharmacy staff will be reaching out to the patient to inform them of their medication's [facility]. If applicable, a pharmacist will speak with the patient to offer our specialty pharmacy services and to arrange delivery of their medication. Alex Bhagat 04/13/23 1:38 PM documented in this encounter Plan of Treatment Upcoming Encounters Date Type Department Care Team (Late st Contact Info) Description 07/09/2024 10:00 AM EDT Hospital Encounter Non-[place] [address] Arrived documented as of this encounter Visit Diagnoses Not on filedocumented in this encounter Care Teams Senior It Auditor Relationship Specialty Start Date End Date Edie Ellis MD [address] [place] [address] PCP - General 10/15/10 documented as of this encounter
--- OUTSIDE RECORDS SUMMARY | 2024-07-05 19:48 | XMS_ITS | Encounter Summary ---
[place] [address] Care Team Providers Care Sexual Health Physician Name Role Phone Edie Ellis MD Primary Care Provider [phone] Encounter Details Date Type Department Care Team [...] AM EDT Hospital Encounter Non-[place]vasive [place] [address] Arrived documented as of this encounter Visit Diagnoses Not on filedocumented in this encounter Care Teams Sexual Health Physician Relationship Specialty Start Date End Date Edie Ellis MD [address] [place] [address] PCP - General 10/15/10 documented as of this encounter
--- OUTSIDE RECORDS SUMMARY | 2024-07-05 19:48 | XMS_ITS | Encounter Summary ---
Author Organization [facility] [place] [address] Care Team Providers Care Stock Transfer Clerk Name Role Phone Edie Ellis MD Primary Care Provider [phone] Encounter Details Date Type Department Care Team (Late st Contact Info) Description 03/19/2023 Orders Only Cardiology at [address] [phone] Kina Awad PA [facility] [place] [address] Social History Tobacco Use Types Packs/Day Years [...] AM EDT Hospital Encounter Non-[place] [address] Arrived documented as of this encounter Visit Diagnoses Not on filedocumented in this encounter Care Teams Stock Transfer Clerk Relationship Specialty Start Date End Date Edie Ellis MD [facility] [address] [place] [address] PCP - General 10/15/10 documented as of this encounter
--- OUTSIDE RECORDS SUMMARY | 2024-07-05 19:48 | XMS_ITS | Encounter Summary ---
[place] [address] Care Team Providers Care Restaurant Busser Name Role Phone Edie Ellis MD Primary Care Provider [phone] Encounter Details Date Type Department Care Team [...] AM EDT Hospital Encounter Non-[place] [address] Arrived documented as of this encounter Visit Diagnoses Not on filedocumented in this encounter Care Teams Restaurant Busser Relationship Specialty Start Date End Date Edie Ellis MD [address] [place] [address] PCP - General 10/15/10 documented as of this encounter
--- OUTSIDE RECORDS SUMMARY | 2024-07-05 19:48 | XMS_ITS | Encounter Summary ---
Author Organization [facility] [place] [address] Care Team Providers Care Metal Cans Supervisor Name Role Phone Edie Ellis MD Primary Care Provider [phone] Reason for Visit * Auth/Cert (Routine) Specialty Diagnoses / Procedures Referred By Geraldine t Referred To Contact Diagnoses Cardiomyopathy, unspecified type [I42.9]Syncope, unspecified syncope type [R55]Family history of sudden cardiac [Z82.41] Procedures ELECTROPHYSIOLOGY PROCEDURE Tigre Whiteside MD [facility] [place] [address] [facility] Referral ID Status Reason Start Date Expiration Date Visits Re quested Visits Authorized [id number] 1 1 Encounter Details Date Type Department Care Team (Latest Contact Info) Description 07/14/2023 6:25 AM EDT - 07/15/2023 12:59 PM EDT Hospital Encounter [place] [address] Tigre Whiteside MD [facility] [place] [address] Cardiomyopathy, unspecified type; Syncope, unspecified syncope type; [...] Jammie Gottlieb Patient Age: 48 y.o. Language: Uzbek Race: White Ethnicity: Not nor Admit date: 07/14/2023 Discharge date and time: 07/15/2023 1100 Attending Physician: Tigre Whiteside MD Discharge Physician: Tigre Whiteside MD Follow-up Recommendations for Providers: NEW - [employer] subcutaneous ICD Device function is normal Stable for discharge to home Scheduled for ~ day post implant device follow up in device clinic Scheduled for DFT test - Arrive 0700 to Same Day for DFT on Thursday, August 07 Reports moderate pain(expected at implant site), refractory to acetaminophen/ice - #20 hyrdomorphone Refill provided; zero refills Inpatient Provider Contact Information: Cardiac Electrophysiology [phone], option #3 Discharge Diagnoses (Hospital Problems) and Secondary Diagnoses (Chronic Problems): Active Hospital Problems Diagnosis HFrEF (heart failure with reduced ejection fraction) SQ ICD, [employer], single lead Resolved Hospital Problems No [...] for primary prevention subcutaneous ICD. Hospital Course: [employer] SQ ICD implanted without complication. Non-inducible [...] Data is abnormally low Treatments: Device Data: Director Of Orthopedics Model # Serial # Generator [employer] [id number] Ventricular Lead [employer] [id number] Impedance (ohms) Shock (10J) 87 Programming: Rate [...] 1 capsule Refills: 0 naloxone 4 mg/actuation [place], Non-Aerosol Commonly known as: Narcan Once Refills: [...] incision. Make sure to use a cloth tester quality (such as a towel) in between the [...] if you have any personal concerns, contact [facility] Electrophysiology at [phone]. Do not attempt to readjust the Clozex?? [...] questions. The office scheduling phone number is [phone]. If you have any questions or concerns about this product, please call the device clinic at [phone]. General Instructions None Future Appointments and Orders Future Appointments and Orders Future Appointments Provider Department Dept Phone 07/20/2023 1:00 PM PRE ANESTHESIA, CONSULT Same Day at [facility] Arrive at: Home [phone] To view instructions for your video visit, click here, or visit this website: [email or web address] If you have not previously downloaded the [facility] patient portal software, Restaro, or the [employer] joe, please do so by clicking one [...] 9:30 AM Tila Elmore RN Cardiology at [facility] Arrive at: Regional Wildlife Agent Area [phone] 10/13/2023 9:30 AM Tila Elmore RN Cardiology at [facility] Arrive at: [facility] Area [phone] Discharge References/Attachments None documented in this encounter Discharge Instructions * Patient Instructions* Hunter Mcclain PA - 07/14/2023 10:55 AM EDT FINAL ICD RECOMMENDATIONS: 1. Standard post implant discharge instructions (see below): 2. Medications as listed above. 3. You may use ice packs over the incision. Make sure to use a cloth tester quality (such as a towel) in between the [...] if you have any personal concerns, contact [facility] Electrophysiology at [phone]. Do not attempt to readjust the Clozex?? [...] questions. The office scheduling phone number is [phone]. If you have any questions or concerns about this product, please call the device clinic at [phone]. documented in this encounter Medications at Time [...] a day 03/12/2015 naloxone (Narcan) 4 mg/actuation [place], Non-Aerosol Once 03/10/2019 magnesium oxide (MAG-OX) 400 [...] Lemus RN - 07/15/2023 12:51 PM EDT [facility] Short Stay Unit Discharge Note [...] failure with reduced ejection fraction) SQ ICD, [employer], single lead Resolved Hospital Problems No resolved problems to display. Interval History: 48 y.o. female with a history of non-ischemic cardiomyopathy with known TTN gene, HTN, DM2, syncope, EF 42%, admitted for primary prevention subcutaneous ICD. [employer] SQ ICD implanted without complication. Non-inducible [...] 199 mg/dL Pertinent Radiographic/Diagnostic Results: Device Data: Director Of Orthopedics Model # Serial # Generator [employer] [id number] Ventricular Lead [employer] [id number] Impedance (ohms) Shock (10J) 87 Programming: Rate [...] 42%, admitted for primary prevention subcutaneous ICD. [employer] SQ ICD implanted without complication. Non-inducible for VT/VF. 10j shock impedance = 87 ohms. Plan: Device function is normal Stable for discharge to home Scheduled for DFT test - Arrive 0700 to Same Day for DFT on Thursday, August 07 Provider: ANNE Oneal EP Consult attending physician: Juan Taylor MD EP Consult positional pager #[phone](EPMD) EP Device interrogation positional pager # [phone] Associated attestation - Hero Taylor MD - [...] ~ 10 days. Hero Taylor MD, PhD, [facility] Cardiac Electrophysiology * Leelee Barone RN - 07/14/2023 11:10 AM EDT 1050: Jammie Gottlieb arrived from in a bed to PACU 1. Pt was attached to monitors, alarms set appropriately & audible. NSR on site monitor, lungs are clear. Sternal & Flank [...] ARRAY, EPIDURAL performed by CARINE CHATTERJEE at [facility] MAIN OR PRO UNLISTED PROCEDURE, [...] completed. Hola Mahan MD Cardiac Electrophysiology Fellow [facility] Pager [phone] 07/14/2023 Addendum 48 y.o.woman with longstanding NICM, [...] visit, click here, or visit this website: [email or web address] If you have not previously downloaded the [facility] patient portal software, Restaro, or the [employer] joe, please do so by clicking one [...] AM (Arrive by 9:10 AM) Cardiology at [address] [address] Arrive at: Regional Wildlife [facility] Area 4A OCT 13 Office Visit with Tila Anand RN Thursday 9:30 AM (Arrive by 9:10 AM) Cardiology at [address] [address] Arrive at: [facility] 4A Transportation: family or friend will [...] AM EDT Hospital Encounter Non-[place] [address] Arrived documented as of this [...] have questions please contact the health manager care that requested your imaging first. ? [...] who have questions please contactthe health manager care that requested your imaging first. Tigre Whiteside MD IMG DX ORDERABLES * POCT Glucose (07/14/2023 10:55 AM EDT) [facility] Signature Glucose, POC 135 65 - 199 mg/dL [facility] Comment: Supplemental ranges: <140 mg/dL before meals <180 mg/dL all other times of the day Blood 07/14/2023 10:5 5 AM EDT 07/14/2023 10:55 AM EDT Tigre Whiteside MD POINT OF CARE TEST O RDERABLES Performing Organization Address City/State/[facility] Co de Phone Number [facility] [place] [address] * ELECTROPHYSIOLOGY PROCEDURE (07/14/2023 8:45 AM EDT) Anatomical Region Laterality Modality Other Narrative 07/14/2023 3:32 PM EDT Table formatting from the original result was not included. [facility] Electrophysiology Procedure Note Patient Name: Jammie Gottlieb Patient : 1975 Pta: Tigre Whiteside MD Fellow: Hola Mahan MD [...] the entire procedure. Lead and Generator Data: Director Of Orthopedics Model # Serial # Generator [employer] [id number] Ventricular Lead [employer] [id number] Data: Impedance (ohms) Shock (10J) 87 Programming: [...] defibrillation threshold testing (attempted) I was the carbon coating machine operator, present for the entire procedure and personally edited this note TIGRE WHITESIDE MD Tigre Whiteside MD EP PROCEDURE ORDERAB LES * (ABNORMAL) Basic Metabolic Panel (non-fasting) (07/14/2023 7:00 AM EDT) Glucose 161 65 - 199 mg/dL [facility] Comment:Diabetes: >=200 mg/d L plus symptoms Blood Urea Nitrogen 14 8 - 18 mg/dL [facility] Creatinine 0.44(L) 0.70 - 1.20 mg/dL [facility] Sodium 139 135 - 145 mmol/L [facility] Potassium 4.6 3.5 - 5.0 mmol/L [facility] Comment: Please note: ??Patients with WBC >100,000 may have falsely elevated Potassium levels. ??For accurate Potassium quantification in these patients send serum separator tube (gold top) for subsequent determinations. ??Contact the Clinical Chemistry Laboratory if there are any questions. Chloride 105 98 - 107 mmol/L [facility] Carbon Dioxide 25 22 - 31 mmol/L [facility] Anion Gap 9 5 - 15 mmol/L [facility] Calcium 8.9 8.5 - 10.5 mg/dL [facility] Est Glomerular Filtration Rate 119 >=60 mL/min/1. 73 m?? [facility] Comment: This patient's estimated GFR [...] In Lab Tigre Whiteside MD CHEMISTRY ORDERABLES [facility] [place] [address] * EKG 12 Lead (07/14/2023 6:51 AM EDT) Ventricular rate 79 BPM MUSE SYSTEM Atrial Rate 79 BPM MUSE SYSTEM P-R Interval 180 ms MUSE SYSTEM QRS Duration 78 ms MUSE SYSTEM Q-T Interval 408 ms MUSE SYSTEM QTC Calculated (Bezet) 467 ms MUSE SYSTEM Calculated P [place] 2 degrees MUSE SYSTEM Calculated R [place] -14 degrees MUSE SYSTEM Calculated T [place] 16 degrees MUSE SYSTEM INTERPRETATION Normal sinus rhythm Septal infarct , age undetermined Poor R wave progression Abnormal ECG When compared with ECG of 02-JUL-2023 14:20, Septal infarct is now Present I personally reviewed the tracing and edited the fellows interpretation Confirmed by fellow Oscar Kidd ([id number]) on 07/14/2023 9:20:46 AM Confirmed by MD Sophie, [place] ([id number]) on 07/14/2023 5:28:26 PM MUSE SYSTEM 07/14/2023 6:51 AM EDT 07/14/2023 5:28 PM EDT Tonia Crystal MD ECG ORDERABLES MUSE SYSTEM * POCT Glucose (07/14/2023 6:37 AM EDT) Glucose, POC 156 65 - 199 mg/dL [facility] Comment: Supplemental ranges: <140 mg/dL before meals <180 mg/dL all other times of the day Blood 07/14/2023 6:37 AM EDT 07/14/2023 6:37 AM EDT Tigre Whiteside MD POINT OF CARE TEST O RDERABLES [facility] [place] [address] documented in this encounter Visit Diagnoses Diagnosis HFrEF (heart failure with reduced ejection fraction)- Primary Cardiomyopathy, unspecified type Syncope, unspecified syncope type Family history of sudden cardiac Family history of sudden cardiac (SCD) SQ ICD, [employer], single lead Cardiomyopathy, unspecified type Syncope, [...] this AM) 802 (Given - Provider: Donna Lemus, CHARLY) DULoxetine DR (Cymbalta) capsule 40 mg 40 [...] Routine 1703 (Given - Provider: Donna Lemus, RN) sacubitriL-valsartan (Entresto) 97-103 mg per tablet 1 tablet 1 tablet, Oral, 2 TIMES DAILY, First dose on Thu07/14/23 at 1330, Until Discontinued, Routine, Is this a continuation of home medication? Yes 1330 (Not Given - Provider: Donna Lemus, RN - Reason: Patient/family refused)2022 (Given - Provider: Carmen Barnett RN) 0803 (Given - Provider: Donna Lemus, RN) vancomycin (Vancocin) 1.5 gram in sodium chloride [...] Carmen Barnett RN)0517 (Given - Provider: Carmen Barnett, CHARLY)0914 (Given - Provider: Mary Robles RN) loratadine [...] Routine documented in this encounter Care Teams Metal Cans Supervisor Relationship Specialty Start Date End Date Edie Ellis MD [facility] [address] [place] [address] PCP - General 10/15/10 documented as of this encounter
--- OUTSIDE RECORDS SUMMARY | 2024-07-05 19:48 | XMS_ITS | Encounter Summary ---
[place] [address] Care Team Providers Care Industrial Boilermaker Name Role Phone Edie Ellis MD Primary Care Provider [phone] Reason for Visit * Reason Onset Date Comments Follow-up 05/08/2023 Entresto start B MP results Encounter Details Date Type Department Care Team ([facility] Contact Info) Description 05/08/2023 Telephone Cardiology at [address] [phone] Angélica Polo, RN Follow-up (Entresto start BMP [...] Hospital Encounter [place] [address] Arrived documented as of this encounter Procedures Procedure Name Priority Date/Time Associated Diagnosis Comments BASIC METABOLIC PANEL Routine 05/04/2023 2:50 PM EDT documented in this encounter Results * (ABNORMAL) Basic Metabolic Panel (non-fasting) (05/04/2023 2:50 PM EDT) Glucose 178 [facility] Blood Urea Nitrogen 10 [facility] Creatinine 0.8 [facility] Est Glomerular Filtration Rate 91.40 [facility] Sodium 136 [facility] Potassium 4.2 [facility] Chloride 99 [facility] Carbon Dioxide 29 [facility] Calcium 9.3 [facility] Anion Gap 8 [facility] Blood 05/04/2023 2:50 PM EDT Historical Provider CHEMISTRY ORDERAB LES [facility] documented in this encounter Visit Diagnoses Not on filedocumented in this encounter Care Teams Industrial Boilermaker Relationship Specialty Start Date End Date Edie Ellis MD [address] [place] [address] PCP - General 10/15/10 documented as of this encounter
--- OUTSIDE RECORDS SUMMARY | 2024-07-05 19:48 | XMS_ITS | Encounter Summary ---
Author Organization [facility] Address [facility] [place] [address] Care Team Providers Care Second Watch Sergeant Name Role Phone Edie Ellis MD Primary Care Provider [phone] Reason for Visit * Reason Comments Establish Care RT SHOULDER PARTIAL ROTATOR CUFF TEAR DISCUSS SURGICAL OPTIONS 2ND OPINION TRA * Consultation (Routine) - Closed Specialty Diagnoses / Procedures Referred By Geraldine olmedo Referred To Contact Orthopaedics Diagnoses RIGHT SHOULDER PARTIAL ROTATOR CUFF TEAR Edie Ellis MD [facility] [address] [place] [address] [facility] [address] [place] [phone] Referral ID Status Reason Start Date Expiration Date V isits Requested Visits Authorized [id number] Closed Consult, Test & Treat PCP Updated and/or Approved 04/10/2023 04/09/2024 6 6 Encounter Details Date Type Department Care Team (Late st Contact Info) Description 07/03/2023 11:40 AM EDT Office Visit [place] [address] Rory Kaminski MD [facility] [place] [address] Chronic pain in right shoulder [...] surgery. Jammie plans to pursue PT at [facility] in [facility] Discussed making sure they take care of child welfare social worker, sleeping situations, and having help with ADL'sbefore [...] giventhe surgical schedulers direct number Loyda Alvarado Contract Project Manager Department of Orthopaedics Division of Sports Medicine * Rory Kaminski MD - 07/03/2023 11:40 AM EDT Chief complaint: Right shoulder pain HPI: 48-year-old female, patient of Dr. Berg in [place] who is status post left shoulder arthroscopy [...] plan had been to do this in [place] but she has an underlying muscular dystrophy as well as underlying congestive heart failure. She was therefore directed to pursue care here at [facility]. On exam she is pleasant 48-year-old [...] AM EDT Hospital Encounter Non-[place] [address] Arrived documented as of this encounter Visit Diagnoses Diagnosis Chronic pain in right shoulder Pain in joint, shoulder region documented in this encounter Care Teams Second Watch Sergeant Relationship Specialty Start Date End Date Edie Ellis MD [address] [place] [address] PCP - General 10/15/10 documented as of this encounter
--- OUTSIDE RECORDS SUMMARY | 2024-07-05 19:48 | XMS_ITS | Encounter Summary ---
Author Organization [facility] Address [facility] [place] [address] Care Team Providers Care Materials Director Name Role Phone Edie Ellis MD Primary Care Provider [phone] Reason for Visit * Diagnostic Test (Routine) - Closed Specialty Diagnoses / Procedures Referred By Geraldine olmedo Referred To Contact Diagnoses HFrEF (heart failure with reduced ejection fraction) Other chest pain Procedures Echocardiogram Transthoracic Echocardiogram Stress (Treadmill) Kina Choi PA [facility] [place] [address] [facility] [place] [address] Referral ID Status Reason Start Date Expiration Date V isits Requested Visits Authorized [id number] Closed Specialty Service Requested 03/12/2023 03/11/2024 1 1 Encounter Details Date Type Department Care Team (Latest Contact Info) Description 03/23/2023 9:00 AM EDT - 03/23/2023 11:59 PM EDT Hospital Encounter Non[place] [address] Loyda Mendoza MD [facility] [place] [address] HFrEF (heart failure with reduced [...] a day 03/12/2015 naloxone (Narcan) 4 mg/actuation [place], Non-Aerosol Once 03/10/2019 magnesium oxide (MAG-OX) 400 [...] AM EDT Hospital Encounter Non[place] [address] Arrived documented as of this encounter Procedures Procedure Name Priority Date/Time Associated Diagnosis Comments ECHO COMPLETE W CONTRAST Routine 03/23/2023 10:09 AM EDT HFrEF (heart failure with reduced ejection fraction) Other chest pain documented in this encounter Results * ECHO COMPLETE W CONTRAST (03/23/2023 10:09 AM EDT) EF 42 HEARTLAB SYSTEM Anatomical Region Laterality Modality Cardiac Other 03/23/2023 9:28 AM EDT Narrative 03/23/2023 10:21 AM EDT ? Echocardiogram Report Name: RAMY GOTTLIEB Sherice ?Study Date: 03/23/2023 09:28 AM ? Patient Location: 4A : 1975 ? Height: 163 cm ? Account: [id number] Age: 47 yrs ? Weight: 99 kg Gender: Female ?BSA: 2.0 m2 Ordering Physician: LOYDA MENDOZA Referring Physician: KINA CHOI Performed By: Kate Arellano RDCS Reason For Study: HFrEF (heart failure with reduced ejection fraction), Other chest pain Exam Location: [facility]. Interpretation Summary LV mild global hypokinesis. The left ventricular ejection fraction is 42% by Mobley's biplane. Right ventricular function is probably normal. No significant valvular disease noted on this study. Compared with the prior TTE of 01/02/2022, LV systolic function has declined (prior EF 52%). Of note, the patient was tachycardiac at baseline (HR 105 bpm). Stress testing was canceled. Procedure Complete-[id number]. Image enhancement Optison was used for left [...] 4A : 1975 Height: 163 cm Account: [id number] Age: 47 yrs Weight: 99 kg Gender: Female BSA: 2.0 m2 Ordering Physician: LOYDA MENDOZA Referring Physician: KINA CHOI Performed By: Kate Arellano RDCS Reason For Study: HFrEF (heart failure with reduced ejection fraction),Other chest pain Exam Location: [facility]. Interpretation Summary LV mild global hypokinesis. The left ventricular ejection fraction is 42%by Mobley's biplane. Right ventricular function is probably normal. No significant valvular disease noted on this study. Compared with the prior TTE of 01/02/2022, LV systolic function hasdeclined (prior EF 52%). Of note, the patient was tachycardiac at baseline (HR 105 bpm). Stresstesting was canceled. Procedure Complete-[id number]. Image enhancement Optison was used for left [...] mLs documented in this encounter Care Teams Materials Director Relationship Specialty Start Date End Date Edie Ellis MD [address] [place] [address] PCP - General 10/15/10 documented as of this encounter
--- OUTSIDE RECORDS SUMMARY | 2024-07-05 19:48 | XMS_ITS | Encounter Summary ---
Author Organization [facility] [place] [address] Care Team Providers Care Ore Smelter Name Role Phone Edie Ellis MD Primary Care Provider [phone] Encounter Details Date Type Department Care Team (Late st Contact Info) Description 04/10/2023 Orders Only Cardiology at [address] [phone] Kina Awad PA [facility] [place] [address] Social History Tobacco Use Types Packs/Day Years [...] AM EDT Hospital Encounter Non-[place] [address] Arrived documented as of this encounter Visit Diagnoses Not on filedocumented in this encounter Care Teams Ore Smelter Relationship Specialty Start Date End Date Edie Ellis MD [facility] [address] [place] [address] PCP - General 10/15/10 documented as of this encounter
--- OUTSIDE RECORDS SUMMARY | 2024-07-05 19:48 | XMS_ITS | Encounter Summary ---
Author Organization [facility] [place] [address] Care Team Providers Care Computer Systems Administrator Name Role Phone Edie Ellis MD Primary Care Provider [phone] Reason for Visit * Reason Onset Date Comments Follow-up 06/26/2023 Up titration of Entresto Encounter Details Date Type Department Care Team (Late st Contact Info) Description 06/26/2023 Telephone Cardiology at [address] [phone] Angélica Polo, RN Follow-up (Up titration of [...] 06/26/2023 12:50 PM EDT Pt returning this continuity writer's call. States she has enough of the [...] the dose increase. Awaiting a call back. [facility] message sent as well. * Telephone [...] Gottlieb Sent: 06/23/2023 11:47 AM EDT To: [facility] Cardiology Nurse Subject: Blood pressure I'm sending [...] AM EDT Hospital Encounter Non-Invasive [place] [address] Arrived documented as of this encounter Visit Diagnoses Not on filedocumented in this encounter Care Teams Computer Systems Administrator Relationship Specialty Start Date End Date Edie Ellis MD [facility] [address]AL[address]NA[address] [facility] [address] [place] [address] PCP - General 10/15/10 documented as of this encounter
--- OUTSIDE RECORDS SUMMARY | 2024-07-05 19:48 | XMS_ITS | Encounter Summary ---
[place] [address] Care Team Providers Care Wheel Truer Name Role Phone Edie Ellis MD Primary Care Provider [phone] Encounter Details Date Type Department Care Team [...] AM EDT Hospital Encounter Non-[place] [address] Arrived documented as of this encounter Visit Diagnoses Not on filedocumented in this encounter Care Teams Wheel Truer Relationship Specialty Start Date End Date Edie Ellis MD [address] [place] [address] PCP - General 10/15/10 documented as of this encounter
--- OUTSIDE RECORDS SUMMARY | 2024-07-05 19:48 | XMS_ITS | Encounter Summary ---
[place] [address] Care Team Providers Care Gas Welding Machine Operator Name Role Phone Edie Ellsi MD Primary Care Provider [phone] Encounter Details Date Type Department Care Team [...] AM EDT Hospital Encounter Non-[place] [phone] Arrived documented as of this encounter Visit Diagnoses Not on filedocumented in this encounter Care Teams Gas Welding Machine Operator Relationship Specialty Start Date End Date Edie Ellis MD [address] [place] [address] PCP - General 10/15/10 documented as of this encounter
--- OUTSIDE RECORDS SUMMARY | 2024-07-05 19:48 | XMS_ITS | Encounter Summary ---
Author Organization [facility] Address [facility] [place] [address] Care Team Providers Care Folding Rules Printing Machine Operator Name Role Phone Edie Ellis MD Primary Care Provider [phone] Encounter Details Date Type Department Care Team (Late st Contact Info) Description 07/15/2023 Orders Only Cardiology at [address] [address] Hero [place] MD [facility] [place] [address] Dilated cardiomyopathy Social History Tobacco Use Types [...] AM EDT Hospital Encounter Non-Invasive [place] [address] Arrived documented as of this encounter Visit Diagnoses Diagnosis Dilated cardiomyopathy Other primary cardiomyopathies documented in this encounter Care Teams Folding Rules Printing Machine Operator Relationship Specialty Start Date End Date Edie Ellis MD [facility] [address] [place] [address] PCP - General 10/15/10 documented as of this encounter
--- OUTSIDE RECORDS SUMMARY | 2024-07-05 19:49 | XMS_ITS | Encounter Summary ---
Author Organization Formerly [facility] [place] [address] Care Team Providers Care Inspector Machine Parts Name Role Phone Edie Ellis MD Primary Care Provider [phone] Encounter Details Date Type Department Care Team (Late st Contact Info) Description 09/12/2021 Orders Only Cardiology at [address] [phone] [facility] [place] [address] Pulmonary hypertension Social History Tobacco Use Types [...] EDT Hospital Encounter Non-Invasive [place] [address] Arrived documented as of this encounter Results [...] / FVC LLN 70 % COMPAS PFT [id number] Actual Pre-BD 3.54 L/s COMPAS PFT LAP01-48 Pre-BD % of Predicted 122 % COMPAS PFT BTH63-41 Predicted 2.90 L/s COMPAS PFT GOC13-16 Pre-BD Z-Score 0.73 COMPAS PFT DLCO Hb [...] diseases documented in this encounter Care Teams Inspector Machine Parts Relationship Specialty Start Date End Date Edie Ellis MD [address] [place] [address] PCP - General 10/15/10 documented as of this encounter
--- OUTSIDE RECORDS SUMMARY | 2024-07-05 19:49 | XMS_ITS | Encounter Summary ---
Author Organization [facility] [place] [address] Care Team Providers Care Pharmaceutical Salesperson Name Role Phone Edie Ellis MD Primary Care Provider [phone] Encounter Details Date Type Department Care Team (Late st Contact Info) Description 10/15/2021 Orders Only Medical Genetics at [address] [address] [place], [facility] [place] [address] Dilated cardiomyopathy Social History Tobacco Use Types [...] AM EDT Hospital Encounter [place] [address] Arrived documented as of this encounter Visit Diagnoses Diagnosis Dilated cardiomyopathy Other primary cardiomyopathies documented in this encounter Care Teams Pharmaceutical Salesperson Relationship Specialty Start Date End Date Edie Ellis MD [address] [facility] [place] [address] PCP - General 10/15/10 documented as of this encounter
--- OUTSIDE RECORDS SUMMARY | 2024-07-05 19:49 | XMS_ITS | Encounter Summary ---
Author Organization [facility] [place] [address] Care Team Providers Care Airset Molder Name Role Phone Edie Ellis MD Primary Care Provider [phone] Encounter Details Date Type Department Care Team (Latest Contact Info) Description 01/02/2022 10:30 AM EST Laboratory Appointment Lab [address] [place] [phone] HFrEF (heart failure with reduced ejection fraction) [...] AM EDT Hospital Encounter [place] [phone] Arrived documented as of this encounter Procedures Procedure Name Priority Date/Time Associated Diagnosis Comments HC PROBNP Routine 01/02/2022 10:43 AM EST HFrEF (heart failure with reduced ejection fraction) HC VENIPUNCTURE Routine 01/02/2022 10:43 AM EST HFrEF (heart failure with reduced ejection fraction) BASIC METABOLIC PANEL Routine 01/02/2022 10:43 AM EST HFrEF (heart failure with reduced ejection fraction) documented in this encounter Results * (ABNORMAL) Basic Metabolic Panel (non-fasting) (01/02/2022 10:43 AM EST) Glucose 209(H) 65 - 199 mg/dL [facility] Comment:Diabetes: >=200 mg/d L plus symptoms Blood Urea Nitrogen 10 8 - 18 mg/dL [facility] Creatinine 0.64(L) 0.70 - 1.20 mg/dL [facility] Sodium 137 135 - 145 mmol/L [facility] Potassium 4.4 3.5 - 5.0 mmol/L [facility] Comment: Please note: ??Patients with WBC >100,000 may have falsely elevated Potassium levels. ??For accurate Potassium quantification in these patients send serum separator tube (gold top) for subsequent determinations. ??Contact the Clinical Chemistry Laboratory if there are any questions. Chloride 101 98 - 107 mmol/L [facility] Carbon Dioxide 23 22 - 31 mmol/L [facility] Anion Gap 13 5 - 15 mmol/L [facility] Calcium 8.7 8.5 - 10.5 mg/dL [facility] Est Glomerular Filtration Rate 107 >=60 mL/min/1. 73 m?? [facility] Comment: This patient? s estimated [...] MD CHEMISTRY OR DERABLES Performing Organization Address [facility] Co de Phone Number [facility] [place] [address] * (ABNORMAL) pro-Brain Natriuretic Peptide (01/02/2022 10:43 AM EST) NT-proBNP 140(H) <=124 pg/mL [facility] Blood 01/02/2022 10:4 3 AM EST 01/02/2022 10:52 AM EST Narrative Resulting Agency Comment Spec In Lab Alla Richardson MD CHEMISTRY OR DERABLES Performing Organization Address [facility] Co de Phone Number [facility] [place] [address] * CK (01/02/2022 10:43 AM EST) Creatine Kinase 32 0 - 160 unit/L [facility] Blood 01/02/2022 10:4 3 AM EST 01/02/2022 10:52 AM EST Narrative Resulting Agency Comment Spec In Lab Alla Richardson MD CHEMISTRY OR DERABLES Performing Organization Address [facility] Co de Phone Number [facility] [place] [address] documented in this encounter Visit Diagnoses Diagnosis HFrEF (heart failure with reduced ejection fraction) documented in this encounter Care Teams Airset Molder Relationship Specialty Start Date End Date Edie Ellis MD [address] [place] [address] PCP - General 10/15/10 documented as of this encounter
--- OUTSIDE RECORDS SUMMARY | 2024-07-05 19:49 | XMS_ITS | Encounter Summary ---
Author Organization [facility] Address [facility] [place] [address] Care Team Providers Care Motor Generator Set Operator Name Role Phone Edie Ellis MD Primary Care Provider [phone] Encounter Details Date Type Department Care Team (Late st Contact Info) Description 09/06/2021 9:00 AM EDT - 09/06/2021 10:00 AM EDT Surgery [place] [address] Justino Washburn MD [facility] [place] [address] CARDIAC CATHETERIZATION Social History Tobacco Use Types [...] by your doctor, do not take any lgcp-vsx-fieocef medicinesor herbal preparations without first discussing this with your doctor or pharmacist. There is the possibility of side effects and interactions when these are combined. Follow Up Care Who to call with questions or problems If there are any questions or problems that you think might be related to your cardiac cath or angioplasty, contact the radiation oncology nurse calibration specialist by calling [facility] at . documented in this encounter [...] a day 03/12/2015 naloxone (Narcan) 4 mg/actuation [place], Non-Aerosol Once 03/10/2019 magnesium oxide (MAG-OX) [...] 2 diabetes mellitus without complication, unspecified whether mill washer insulin use Take 10 mg by mouth [...] QTC Calculated (Bezet) 469 ms Calculated P [place] 9 degrees Calculated R [place] -5 degrees Calculated T [place] 18 degrees INTERPRETATION Normal sinus rhythm Low [...] from the original note were not included. [facility] [place] [address] CORONARY ANGIOGRAM AND PERCUTANEOUS CORONARY INTERVENTION REPORT Patient: Jammie Gottlieb : 1975 MR number: [id number] Date of Service: 09/06/2021 Death Claim Clerk: Justino Washburn MD Fellow: Femi Koroma MD [...] obtained. The patient was brought to the manufacturing lab technician and placed onthe table. Time out [...] no procedural complications. ??? I provided direct nvaj-mu-xxaf monitoring of conscious sedation which was administered [...] AM EDT Hospital Encounter Non-Invasive [place] [address] Arrived documented as of this encounter Procedures [...] Modality Other Narrative 09/06/2021 12:54 PM EDT ?[facility] ? Cardiac Catheterization/Intervention Report ? Patient Name: Jammie Gottlieb. ? Procedure Date: 09/06/2021 ? A #: [id number] ? Primary Physician: Justino Washburn ? Case #: [id number] ? File Name: [id number] ? Catheterization Order Number: [id number] ? [facility] ? Final Report [place], [place] ? Patient Name: ? Jammie A. [place] ? ID#: ?[id number] ? : ?1975 ? Procedure Date: ? September 06, 2021 ? Case #: ? [id number] ? Room: ? 1 ? Case Physician: [...] procedure was Elective. The indication for ?the manufacturing lab technician visit is cardiomyopathy. Chest pain symptom [...] Procedure Note Justino Washburn, MD - 09/06/2021 [facility] Cardiac Catheterization/Intervention Report Patient Name: Jammie Gottlieb Procedure Date: 09/06/2021 A #: [id number] Primary Physician: Justino Washburn Case #: [id number] File Name: [id number] Catheterization Order Number: [id number] [facility] FinalReport [place], [place] Patient Name: Jammie Gottlieb ID#:[id number] :1975 Procedure Date: September 06, 2021 Case [...] was designated as ASA Class II. The [facility] clinical frailtyscale is 3: Managing Well. Diagnostic Tests: Prior Coronary Angiography: LV ejection fraction within 6 months is 41%. Medications Prior to Procedure: Angiotensin Converting Enzyme Inhibitor, Aspirin, Beta Blockerand Statin. Indications for Diagnostic Cath: The priority of the diagnostic procedure was Elective. Theindication for the manufacturing lab technician visit is cardiomyopathy. Chest pain symptom [...] * POCT Glucose (09/06/2021 8:23 AM EDT) [facility] Glucose, POC 109 65 - 199 mg/dL [facility] Comment: Supplemental ranges: <140 mg/dL before meals <180 mg/dL all other times of the day Blood 09/06/2021 8:23 AM EDT 09/06/2021 8:23 AM EDT Justino Washburn MD POINT OF CARE TEST O RDERABLES [facility] [place] [address] * (ABNORMAL) Differential, Automated (09/06/2021 8:10 AM EDT) [facility] Neutrophil % 65.0 % [facility] Neutrophil Absolute 7.22(H) 1.70 - 6.10 x10(3)/mc L [facility] Lymph % 27.0 % [facility] Lymphocytes Abs 3.0 0.9 - 3.2 x10(3)/mc L [facility] Monocyte % 5.0 % [facility] Monocyte Abs 0.6 0.3 - 0.9 x10(3)/mc L [facility] Eos % 1.9 % [facility] Eosinophils Abs 0.2 0.0 - 0.4 x10(3)/mc L [facility] Basophil % 0.7 % [facility] Baso Absolute 0.1 0.0 - 0.1 x10(3)/mc L [facility] Immature Gran % 0.40 % [facility] Comment: Immature granulocytes(IG's)percentage and absolute count will include metamyelocytes, myelocytes, and promyelocytes. Blood smears from CBCs yielding IG's will be scanned manually for concordance. If this scan disagrees with the automated IG or if promyelocytes are noted, a manual differential will be performed. Immature Gran Absolute 0.04 0.00 - 0.04 x10(3)/ L [facility] Blood 09/06/2021 8:10 AM EDT 09/06/2021 8:28 AM EDT Narrative Resulting Agency Comment Spec In Lab Kina RODRÍGUEZ HEMATOLOGY ORDERABLE S Performing Organization Address City/State/[facility] Co de Phone Number [facility] [place] [address] * (ABNORMAL) Hemogram (09/06/2021 8:10 AM EDT) White Blood Cell 11.1(H) 4.0 - 9.5 x10(3)/ L [facility] Red Blood Cell 5.06 4.00 - 5.21 x10(6)/ L [facility] Hemoglobin 14.8 11.7 - 15.5 g/dL [facility] Hematocrit 45.1 35.7 - 45.8 % [facility] Mean Cell Volume 89.1 82.6 - 94.4 fL [facility] Mean Cell Hemoglobin 29.2 27.1 - 32.0 pg [facility] Mean Cell Hemoglobin Concentration 32.8 31.7 - 35.0 g/dL [facility] Platelet 255 145 - 357 x10(3)/mc L [facility] RDW Standard Deviation 44.4 37.0 - 46.0 fL [facility] RDW coefficient of variation 13.6 11.5 - 14.1 % [facility] Mean Platelet Volume 10.3 7.6 - 12.9 fL [facility] NRBC% auto 0.0 % [facility] NRBC Absolute 0.000 0.000 - 0.000 x10(3)/mc L [facility] Blood 09/06/2021 8:10 AM EDT 09/06/2021 8:28 AM EDT Narrative Resulting Agency Comment Spec In Lab Kina RODRÍGUEZ HEMATOLOGY ORDERABLE S Performing Organization Address [facility] de Phone Number [facility] [place] [address] * Prothrombin Time (09/06/2021 8:10 AM EDT) Prothrombin Time 11.8 9.4 - 12.5 sec [facility] International Normalization Ratio 1.0 [facility] Comment: An INR <2.0 [...] MD HEMATOLOGY O RDERABLES Performing Organization Address [facility] Co de Phone Number [facility] [place] [address] * (ABNORMAL) BMP w/fasting Glucose (09/06/2021 8:10 AM EDT) Glucose Fasting 112(H) 65 - 99 mg/dL [facility] Comment: ?Fasting* Glucose Interpretive Criteria [...] of Diabetes Mellitus, Position Statement from the [place] [employer]. ??Diabetes Care, Volume 33, Supplement 1, Nov 2009 Blood Urea Nitrogen 20(H) 8 - 18 mg/dL [facility] Creatinine 0.68(L) 0.70 - 1.20 mg/dL [facility] Sodium 139 135 - 145 mmol/L [facility] Potassium 4.4 3.5 - 5.0 mmol/L [facility] Comment: Please note: ??Patients with WBC >100,000 may have falsely elevated Potassium levels. ??For accurate Potassium quantification in these patients send serum separator tube (gold top) for subsequent determinations. ??Contact the Clinical Chemistry Laboratory if there are any questions. Chloride 99 98 - 107 mmol/L [facility] Carbon Dioxide 26 22 - 31 mmol/L [facility] Anion Gap 14 5 - 15 mmol/L [facility] Calcium 9.8 8.5 - 10.5 mg/dL [facility] Est Glomerular Filtration Rate 105 >=60 mL/min/1. 73 m?? [facility] Comment: This patient? s [...] Lab Alla Richardson MD CHEMISTRY OR DERABLES [facility] [place] [address] documented in this encounter Visit Diagnoses Diagnosis [...] Until Thu09/06/21 at 1703, Pain, while in manufacturing lab technician, Routine Given 09/06/2021 11:53 AM EDT [...] Until Thu09/06/21 at 1501, Cath (Intra-Procedure), Routine 121 (Given - Provid er: Justino Washburn MD) [...] Until Thu09/06/21 at 1703, Pain, while in manufacturing lab technician, Routine 1153 (Given - Provid er: Maria L Pickett RN) nitroGLYcerin 100 mcg/mL intracoronary dilution (CANCELED) ONCE PRN, Starting on Thu09/06/21 at 1209, Until Thu09/06/21 at 1501, Cath (Intra-Procedure), Routine 1209 (Given - Provid er: Justino Washburn MD) sodium chloride 0.9% infusion (CANCELED) CONTINUOUS PRN, Starting on Thu09/06/21 at 1219, Until Thu09/06/21 at 1501, Intra-Operative (Intra-Procedure) 1219 (New Bag - Prov ider: Gaylin Baker - Comment: for 3 hours) sodium chloride 0.9% infusion (CANCELED) CONTINUOUS PRN, Starting on Thu09/06/21 at 1218, Until Thu09/06/21 at 1501, Cath (Intra-Procedure) 1218 (New Bag - Prov ider: Gaylin Baker) documented in this encounter Care Teams Motor Generator Set Operator Relationship Specialty Start Date End Date Edie Ellis MD [facility] [address] [address] PCP - General 10/15/10 documented as of this encounter
--- OUTSIDE RECORDS SUMMARY | 2024-07-05 19:49 | XMS_ITS | Encounter Summary ---
[place] [address] Care Team Providers Care Pipe Organ Mechanic Name Role Phone Edie Ellis MD Primary Care Provider [phone] Encounter Details Date Type Department Care Team (Latest Contact Info) Description 01/02/2022 10:48 AM EST - 01/02/2022 11:59 PM EST Hospital Encounter [place] [address] Pulmonary hypertension Discharge Disposition: Home Social History [...] a day 03/12/2015 naloxone (Narcan) 4 mg/actuation [place], Non-Aerosol Once 03/10/2019 magnesium oxide (MAG-OX) 400 [...] AM EDT Hospital Encounter Non-[place] [address] Arrived documented as of this encounter Procedures [...] / FVC LLN 70 % COMPAS PFT [id number] Actual Pre-BD 3.54 L/s COMPAS PFT UJA48-91 Pre-BD % of Predicted 122 % COMPAS PFT KZN44-24 Predicted 2.90 L/s COMPAS PFT LJZ35-75 Pre-BD Z-Score 0.73 COMPAS PFT DLCO Hb [...] diseases documented in this encounter Care Teams Pipe Organ Mechanic Relationship Specialty Start Date End Date Edie Ellis MD [address] [place] [address] PCP - General 10/15/10 documented as of this encounter
--- OUTSIDE RECORDS SUMMARY | 2024-07-05 19:49 | XMS_ITS | Encounter Summary ---
Author Organization [facility] [address] Care Team Providers Care Engine Designer Name Role Phone Edie Ellis MD Primary Care Provider [phone] Encounter Details Date Type Department Care Team (Late st Contact Info) Description 06/03/2022 [place] [address] Tila Berry Social History Tobacco [...] AM EDT Hospital Encounter Non[place] [address] Arrived documented as of this encounter Visit Diagnoses Not on filedocumented in this encounter Care Teams Engine Designer Relationship Specialty Start Date End Date Edie Ellis MD [facility] [address] [facility] [address] [place] [address] PCP - General 10/15/10 documented as of this encounter
--- OUTSIDE RECORDS SUMMARY | 2024-07-05 19:49 | XMS_ITS | Encounter Summary ---
Author Organization [facility] [place] [address] Care Team Providers Care Carriage Setter Name Role Phone Edie Ellis MD Primary Care Provider [phone] Encounter Details Date Type Department Care Team (Late st Contact Info) Description 02/11/2022 Ancillary Procedure [place] [address] Edie Ellis MD [facility] [address] [place], [place] [id number] Social History Tobacco Use Types Packs/Day Years [...] EDT Hospital Encounter Non-Invasive Cardiology [place] [address] Arrived documented as of this encounter Procedures [...] Ellis MD G FILM LIBRARY ORD ERABLES [place], [place] documented in this encounter Visit Diagnoses Not on filedocumented in this encounter Care Teams Carriage Setter Relationship Specialty Start Date End Date Edie Ellis MD [facility] [address] [place] [address] PCP - General 10/15/10 documented as of this encounter
--- OUTSIDE RECORDS SUMMARY | 2024-07-05 19:49 | XMS_ITS | Encounter Summary ---
[place] [address] Care Team Providers Care Supervisor Public Health Nursing Name Role Phone Edie Ellis MD Primary Care Provider [phone] Encounter Details Date Type Department Care Team (Latest Contact Info) Description 06/17/2021 8:00 AM EDT Laboratory Appointment Lab [address] [place] [phone] Other cardiomyopathy; ASCVD (arteriosclerotic cardiovascular disease); AMARO [...] AM EDT Hospital Encounter [place] [phone] Arrived documented as of this encounter Procedures [...] ASCVD (arteriosclerotic cardiovascular disease) COMPREHENSIVE METABOLIC PANEL STAT 06/17/2021 8:09 AM EDT Other cardiomyopathy documented in this encounter Results * LDL Cholesterol, Direct (06/17/2021 8:09 AM EDT) LDL Cholesterol, Direct 60 mg/dL [facility] Comment: Lowest Risk: <100 mg/dL Lower Risk: 100-129 mg/dL Borderline High Risk: 130-159 mg/dL High Risk: 160-189 mg/dL Very High Risk: >fp=036 mg/dL Blood 06/17/2021 8:09 AM EDT 06/17/2021 8:20 AM EDT Narrative Resulting Agency Comment Spec In Lab Andreina David APRN CHEMISTRY ORDERABLES [facility] [place] [address] * (ABNORMAL) Differential, Automated (06/17/2021 8:09 AM EDT) Neutrophil % 54.2 % [facility] Neutrophil Absolute 5.65 1.70 - 6.10 x10(3)/mc L [facility] Lymph % 32.2 % [facility] Lymphocytes Abs 3.4(H) 0.9 - 3.2 x10(3)/[facility] Monocyte % 5.2 % [facility] Monocyte Abs 0.5 0.3 - 0.9 x10(3)/[facility] Eos % 6.8 % [facility] Eosinophils Abs 0.7(H) 0.0 - 0.4 x10(3)/[facility] Basophil % 1.3 % [facility] Baso Absolute 0.1 0.0 - 0.1 x10(3)/[facility] Immature Gran % 0.30 % [facility] Comment: Immature granulocytes(IG's)percentage and absolute count will include metamyelocytes, myelocytes, and promyelocytes. Blood smears from CBCs yielding IG's will be scanned manually for concordance. If this scan disagrees with the automated IG or if promyelocytes are noted, a manual differential will be performed. Immature Gran Absolute 0.03 0.00 - 0.04 x10(3)/[facility] Blood 06/17/2021 8:09 AM EDT 06/17/2021 8:17 AM EDT Narrative Resulting Agency Comment Spec In Lab Andreina David APRN HEMATOLOGY ORDERABLE S [facility] [place] [address] * (ABNORMAL) Hemogram (06/17/2021 8:09 AM EDT) White Blood Cell 10.4(H) 4.0 - 9.5 x10(3)/[facility] Red Blood Cell 5.12 4.00 - 5.21 x10(6)/[facility] Hemoglobin 15.0 11.7 - 15.5 gm/dL [facility] Hematocrit 46.7(H) 35.7 - 45.8 % [facility] Mean Cell Volume 91.2 82.6 - 94.4 fL [facility] Mean Cell Hemoglobin 29.3 27.1 - 32.0 pg [facility] Mean Cell Hemoglobin Concentration 32.1 31.7 - 35.0 gm/dL [facility] Platelet 256 145 - 357 x10(3)/mc L [facility] RDW Standard Deviation 48.0(H) 37.0 - 46.0 fL [facility] RDW coefficient of variation 14.5(H) 11.5 - 14.1 % [facility] Mean Platelet Volume 10.6 7.6 - 12.9 fL [facility] NRBC% auto 0.0 % [facility] NRBC Absolute 0.000 0.000 - 0.000 x10(3)/mc L [facility] Blood 06/17/2021 8:09 AM EDT 06/17/2021 8:17 AM EDT Narrative Resulting Agency Comment Spec In Lab Andreina David APRN HEMATOLOGY ORDERABLE S [facility] [place] [address] * Comprehensive metabolic panel (non-fasting) (06/17/2021 8:09 AM EDT) Glucose 189 65 - 199 mg/dL [facility] Comment:Diabetes: >=200 mg/d L plus symptoms Blood Urea Nitrogen 14 8 - 18 mg/dL [facility] Creatinine 0.72 0.70 - 1.20 mg/dL [facility] Sodium 137 135 - 145 mmol/L [facility] Potassium 4.0 3.5 - 5.0 mmol/L [facility] Comment: Please note: ??Patients with WBC >100,000 may have falsely elevated Potassium levels. ??For accurate Potassium quantification in these patients send serum separator tube (gold top) for subsequent determinations. ??Contact the Clinical Chemistry Laboratory if there are any questions. Chloride 99 98 - 107 mmol/L [facility] Carbon Dioxide 26 22 - 31 mmol/L [facility] Anion Gap 12 5 - 15 mmol/L [facility] Calcium 9.2 8.5 - 10.5 mg/dL [facility] Protein, Total 7.4 6.1 - 8.0 gm/dL [facility] Albumin 4.6 3.2 - 5.2 gm/dL [facility] Aspartate Aminotransferase 26 0 - 30 unit/L [facility] Alanine Aminotransferase 23 0 - 30 unit/L [facility] Alkaline Phosphatase 62 35 - 105 unit/L [facility] Bilirubin, Total 0.3 0.2 - 1.3 mg/dL [facility] Est Glomerular Filtration Rate 100 >=60 mL/min/1. 73 m?? [facility] [...] In Lab Andreina David APRN CHEMISTRY ORDERABLES [facility] [place] [place] [address] * pro-Brain Natriuretic Peptide (06/17/2021 8:09 AM EDT) NT-proBNP 79 <=124 pg/mL [facility] Blood 06/17/2021 8:09 AM EDT 06/17/2021 8:17 AM EDT Narrative Resulting Agency Comment Spec In Lab Andreina David APRN CHEMISTRY ORDERABLES Performing Organization Address City/[facility]/ZIP Co de Phone Number [facility] [place] [place] [address] * TSH (06/17/2021 8:09 AM EDT) Thyroid Stimulating Hormone 0.85 0.27 - 4.20 mcIU/mL [facility] Comment: Reference Interval (mcIU/mL): Females: ??First Trimester: 0.23-3.88 ??Second Trimester: 0.22-3.90 ??Third Trimester: 0.44-4.66 Blood 06/17/2021 8:09 AM EDT 06/17/2021 8:17 AM EDT Narrative Resulting Agency Comment Spec In Lab Andreina David APRN CHEMISTRY ORDERABLES Performing Organization Address [facility] Co de Phone Number [facility] [place] [place] [address] * Lipid Panel (Reflex Direct LDL) (06/17/2021 8:09 AM EDT) Cholesterol, Total 144 mg/dL [facility] Comment: Lower Risk: <200 mg/dL Average Risk: 200-239 mg/dL Higher Risk: >qk=101 mg/dL Triglyceride 489 mg/dL [facility] Comment: Average Risk/Lower Risk: <150 mg/dL Borderline High Risk: 150-199 mg/dL High Risk: 200-499 mg/dL Very High Risk: >xa=379 mg/dL HDL Cholesterol 30 mg/dL [facility] Comment: Males: ?? Higher Risk: <40 mg/dL Females: ?? Higher Risk: <50 mg/dL LDL Cholesterol Not Calculated [facility] Comment: Lowest Risk: <100 mg/dL Lower Risk: 100-129 mg/dL Borderline High Risk: 130-159 mg/dL High Risk: 160-189 mg/dL Very High Risk: >rz=199 mg/dL Calculated LDL value is not valid for triglycerides greater than 400 mg/dl.06/17/21 08:56 Cholesterol/HDL Ratio 4.8 ratio [facility] Lipid Interpretation See Note [facility] Comment: Lipid management should be guided by a patient? s ASCVD risk, goals and preferences. ACC/AHA Guidelines recommend high intensity statin if clinical ASCVD or LDL greater than or equal to 190 mg/dL. http://[employer].com/ATM-AEC-Hupzfiuua Adults aged 40-75 with LDL 70-189 mg/dL should have their 10 year ASCVD risk estimated with the ACC/AHA ASCVD risk microarray specialist http://tools.acc.org/UHQMG-Uelw-Oljrjqada/ Statin should be discussed if risk greater [...] In Lab Andreina David APRN CHEMISTRY ORDERABLES [facility] [place] [address] documented in this encounter Visit Diagnoses Diagnosis Other cardiomyopathy ASCVD (arteriosclerotic cardiovascular disease) Unspecified cardiovascular disease AMARO (dyspnea on exertion) Other dyspnea and respiratory abnormality documented in this encounter Care Teams Supervisor Public Health Nursing Relationship Specialty Start Date End Date Edie Ellis MD [address] [place] [address] PCP - General 10/15/10 documented as of this encounter
--- OUTSIDE RECORDS SUMMARY | 2024-07-05 19:49 | XMS_ITS | Encounter Summary ---
Author Organization Formerly [facility], [facility] Address [facility] [place] [address] Care Team Providers Care Acetylene Plant Operator Name Role Phone Edie Ellis MD Primary Care Provider [phone] Reason for Referral * Diagnostic Test (Routine) - Closed Specialty Diagnoses / Procedures Referred By Contac t Referred To Contact Cardiology Diagnoses HFrEF (heart failure with reduced ejection fraction) Pulmonary hypertension Procedures Echocardiogram Transthoracic([facility]) Kina Awad PA [facility] [place] [address] [place] [address] [facility] [place] [address] Referral ID Status Reason Start Date Expiration Date V isits Requested Visits Authorized [id number] Closed Specialty Service Requested 09/09/2021 09/09/2022 1 1 Reason for Visit * Diagnostic Test (Routine) - Closed Specialty Diagnoses / Procedures Referred By Contac t Referred To Contact Cardiology Diagnoses HFrEF (heart failure with reduced ejection fraction) Pulmonary hypertension Procedures Echocardiogram Transthoracic([facility] or [facility]) Kina Awad PA [facility] [place] [address] [place] [address] [facility] [place] [address] Referral ID Status Reason Start Date Expiration Date V isits Requested Visits Authorized [id number] Closed Specialty Service Requested 09/09/2021 09/09/2022 1 1 Encounter Details Date Type Department Care Team (Latest Contact Info) Description 01/02/2022 9:28 AM EST - 01/02/2022 10:47 AM EST Hospital Encounter Non-Invasive Cardiology Lab [facility] [place] [phone] [place] Nash [place] [address] HFrEF (heart failure with reduced ejection fraction); [...] a day 03/12/2015 naloxone (Narcan) 4 mg/actuation [place], Non-Aerosol Once 03/10/2019 magnesium oxide (MAG-OX) 400 [...] AM EDT Hospital Encounter Non-[place] [address] Arrived documented as of this [...] AM EST Procedure: ?Transthoracic Echocardiogram Patient: ?CARSON Smiley ? (Age): 1975(46y) Med Rec#: ? [id number] ?Sex: ?F ? Site Loc: ? [facility] ?Ht / Wt: ??163(cm)/94(kg) Pt. Loc: ?Echo Lab ?BSA: ?1.99 Study Date: ?? 01/02/2022 ?Pt. Type: Outpatient Tape: ? Referring: PRECIOUS Reading: Luke Luevano ??([id number]) Computational Linguist: Wil Cuellar RDCS, BETHEL Diagnosis: *Cardiomyopathy, unspecified [...] 01/02/2022 10:31:41 Images reviewed and interpretation verified [facility] Cardiac Ultrasound Laboratory Procedure Note Luke Luevano MD - 01/02/2022 Procedure: Transthoracic Echocardiogram Patient: CARSON METZGER(Age): 1975(46y) Med Rec#: [id number] Sex: F Site Loc: [facility] Ht / Wt: 163(cm)/94(kg) Pt. Loc: Echo Lab BSA: 1.99 Study Date: 01/02/2022 Pt. Type: Outpatient Tape: Referring: PRECIOUS Reading: Luke Luevano ([id number]) Computational Linguist: Wil Cuellar RDCS, FASE Diagnosis: *Cardiomyopathy, unspecified [...] 01/02/2022 10:31:41 Images reviewed and interpretation verified [facility] Cardiac Ultrasound Laboratory Alla Richardson MD ECHO ORDERAB LES documented in this encounter Visit Diagnoses Diagnosis HFrEF (heart failure with reduced ejection fraction) Pulmonary hypertension Other chronic pulmonary heart diseases documented in this encounter Care Teams Acetylene Plant Operator Relationship Specialty Start Date End Date Edie Ellis MD [facility] [address] [place] [address] PCP - General 10/15/10 documented as of this encounter
--- OUTSIDE RECORDS SUMMARY | 2024-07-05 19:49 | XMS_ITS | Encounter Summary ---
Author Organization [facility] Address [facility] [place] [address] Care Team Providers Care Beam Department Supervisor Name Role Phone Edie Ellis MD Primary Care Provider [phone] Reason for Visit * Consultation (Routine) - [...] to see. She sees Dr Eid at [facility]. This seems confusing that we would get a referral. Thanks! Vani Evangelista MD [facility] [place] [address] Alla Nash [place] [facility] [place] [address] Referral ID Status Reason Start Date Expiration Date V isits Requested Visits Authorized [id number] Closed Consult, Test & Treat 07/01/2021 07/01/2022 1 1 Encounter Details Date Type Department Care Team ([facility] [address] Contact Info) Description 08/16/2021 10:40 AM EDT Office Visit Cardiology at [address] [address] Kina Awad PA [facility] [address] HFrEF (heart failure with reduced ejection fraction); [...] from the original note were not included. [facility] [place] Section of Advanced Heart Failure Cardiology [facility] [place] [address] OUTPATIENT VISIT DATE: 06/09/21 OUTPATIENT VISIT TYPE: [...] syncopal event Aug 2020, admitted to [facility]. Loss of urine. Placed on Keppra, released [...] by mouth daily. ??? Lancets Misc by [facility].(Non-Drug; Combo Route) route daily. ??? Miscellaneous Medical Supply Mis 1 strip by [facility].(Non-Drug; Combo Route) route daily. ??? clonAZEpam (KLONOPIN) [...] and/or Ivabradine Metoprolol succinate 50 mg daily EREMA or ARB or Entresto Lisinopril 5 mg daily Aldosterone antagonist Discontinued possibly in the setting of MACY Diuretic Lasix 20 mg daily ICD or MACHINE HEEL SEAT FITTER-D if indicated Not indicated with LVEF >35% [...] AM EDT Hospital Encounter Non[place] [phone] Arrived documented as of this encounter Results * pro-Brain Natriuretic Peptide (08/16/2021 9:45 AM EDT) NT-proBNP 34 <=124 pg/mL [facility] Blood 08/16/2021 9:45 AM EDT 08/16/2021 10:01 AM EDT Narrative Resulting Agency Comment Spec In Lab Alla Richardson MD CHEMISTRY OR DERABLES [facility] [place] [address] * (ABNORMAL) Basic Metabolic Panel (non-fasting) (08/16/2021 9:45 AM EDT) Glucose 122 65 - 199 mg/dL [facility] Comment:Diabetes: >=200 mg/d L plus symptoms Blood Urea Nitrogen 12 8 - 18 mg/dL [facility] Creatinine 0.66(L) 0.70 - 1.20 mg/dL [facility] Sodium 135 135 - 145 mmol/L [facility] Potassium 4.6 3.5 - 5.0 mmol/L [facility] Comment: Please note: ??Patients with WBC >100,000 may have falsely elevated Potassium levels. ??For accurate Potassium quantification in these patients send serum separator tube (gold top) for subsequent determinations. ??Contact the Clinical Chemistry Laboratory if there are any questions. Chloride 98 98 - 107 mmol/L [facility] Carbon Dioxide 28 22 - 31 mmol/L [facility] Anion Gap 9 5 - 15 mmol/L [facility] Calcium 9.5 8.5 - 10.5 mg/dL [facility] Est Glomerular Filtration Rate 106 >=60 mL/min/1. 73 m?? [facility] [...] Lab Alla Richardson MD CHEMISTRY OR DERABLES [facility] [place] [address] documented in this encounter Visit Diagnoses Diagnosis HFrEF (heart failure with reduced ejection fraction) Cardiomyopathy, unspecified type documented in this encounter Care Teams Beam Department Supervisor Relationship Specialty Start Date End Date Edie Ellis MD [address] [place] [address] PCP - General 10/15/10 documented as of this encounter
--- OUTSIDE RECORDS SUMMARY | 2024-07-05 19:49 | XMS_ITS | Encounter Summary ---
Author Organization [facility] [place] [address] Care Team Providers Care Aviation Ordnance Officer Name Role Phone Edie Ellis MD Primary Care Provider [phone] Encounter Details Date Type Department Care Team (Late st Contact Info) Description 04/08/2022 Ancillary Procedure Radiology at [facility] [address] [place] [address] Parker Mederos MD [address] [place] [address] Social History Tobacco Use Types Packs/Day Years [...] AM EDT Hospital Encounter [place] [address] Arrived documented as of this encounter Procedures Procedure Name Priority Date/Time Associated Diagnosis Comments FILM LIBRARY STORAGE ONLY MR SPINE Routine 04/08/2022 12:00 AM EDT documented in this encounter Results * Film Library- Storage Only MR Spine (04/08/2022 12:00 AM EDT) Narrative [facility] - 04/11/2022 5:14 PM EDT This exam is auto-finalizing. It's purpose is for storage only. Parker Mederos MD IMG FILM LIBRARY ORD ERABLES [place], [place] documented in this encounter Visit Diagnoses Not on filedocumented in this encounter Care Teams Aviation Ordnance Officer Relationship Specialty Start Date End Date Edie Ellis MD [address] [place] [address] PCP - General 10/15/10 documented as of this encounter
--- OUTSIDE RECORDS SUMMARY | 2024-07-05 19:49 | XMS_ITS | Encounter Summary ---
Author Organization Formerly [facility] Address [facility] [place] [address] Care Team Providers Care Credit Rating Checker Name Role Phone Edie Ellis MD Primary Care Provider [phone] Reason for Visit * Consultation (Routine) - Closed Specialty Diagnoses / Procedures Referred By Geraldine olmedo Referred To Contact Genetics Diagnoses Cardiomyopathy, unspecified type Kina Awad PA [facility] [place] [address] [address] Referral ID Status Reason Start Date Expiration Date V isits Requested Visits Authorized [id number] Closed Consult, Test & Treat 06/17/2021 06/17/2022 1 1 Encounter Details Date Type Department Care Team (Latest Contact Info) Description 10/07/2021 10:00 AM EST TH Visit (TeleHealth) Medical Genetics at [address] [address] Jyoti Bay, [facility] [address] Dilated cardiomyopathy Social History Tobacco [...] as of this encounter Progress Notes * PhuAnanyaJyoti R, [facility] - 10/07/2021 10:00 AM EST Jammie has [...] IDC, the diagnosis of familial dilated cardiomyopathy (JAIL) is made. It usually takes many years [...] minutes of the visit were spent in [id number] discussions regarding the clinical diagnosis and care planning. Family agreed with the plans discussed. Jyoti Bay MS, [facility] Licensed Senior Genetic Counselor documented in this encounter Plan of Treatment Upcoming Encounters Date Type Department Care Team (Late st Contact Info) Description 07/09/2024 10:00 AM EDT Hospital Encounter Non-[place] [address] Arrived Scheduled Referrals Name Type Priority Associated Diagnoses Orde r Schedule Referral to Genetics Outpatient Referral Routine Cardiomyopathy, unspecified type Ordered: 06/17/2021 documented as of this encounter Visit Diagnoses Diagnosis Dilated cardiomyopathy Other primary cardiomyopathies documented in this encounter Care Teams Credit Rating Checker Relationship Specialty Start Date End Date Edie Ellis MD [address] [facility] [address] [place] [address] PCP - General 10/15/10 documented as of this encounter
--- OUTSIDE RECORDS SUMMARY | 2024-07-05 19:49 | XMS_ITS | Encounter Summary ---
Author Organization [facility] [place] [address] Care Team Providers Care Marble Machine Tender Name Role Phone Edie Ellis MD Primary Care Provider Encounter Details Date Type Department Care Team (Late st Contact Info) Description 04/08/2022 Ancillary Procedure [place] [phone] Edie Ellis MD [facility] [address] [place], [place] [id number] Social History Tobacco Use Types Packs/Day Years [...] AM EDT Hospital Encounter Non-[place] [phone] Arrived documented as of this encounter Procedures Procedure Name Priority Date/Time Associated Diagnosis Comments FILM LIBRARY STORAGE ONLY MR SHOULDER Routine 04/08/2022 12:00 AM EDT documented in this encounter Results * Film Library- Storage Only MR Shoulder (04/08/2022 12:00 AM EDT) Narrative [facility] - 04/11/2022 10:37 AM EDT This exam is auto-finalizing. It's purpose is for storage only. Edie Ellis MD G FILM LIBRARY ORD ERABLES [place], [place] documented in this encounter Visit Diagnoses Not on filedocumented in this encounter Care Teams Marble Machine Tender Relationship Specialty Start Date End Date Edie Ellis MD [facility] [address] [place] [address] PCP - General 10/15/10 documented as of this encounter
--- OUTSIDE RECORDS SUMMARY | 2024-07-05 19:49 | XMS_ITS | Encounter Summary ---
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 Muscle weakness Kina Awad PA [facility] [place] [address] [facility] [address] [place] [phone] Referral ID Status Reason Start Date Expiration Date V isits Requested Visits Authorized [id number] Closed Consult, Test & Treat 01/02/2022 01/02/2023 1 1 Encounter Details Date Type Department Care Team (Late st Contact Info) Description 01/02/2022 11:30 AM EST Office Visit Cardiology at [address] [phone] Alla Nash MD [facility] [place] [address] Kina Awad PA [facility] [place] [address] HFrEF (heart failure with reduced [...] from the original note were not included. [facility] Section of Advanced Heart Failure Cardiology [facility] [place] [address] OUTPATIENT VISIT DATE: 06/09/21 OUTPATIENT VISIT TYPE: [...] syncopal event Aug 2020, admitted to [facility]. Loss of urine. Placed on Keppra, released [...] she states she feels like she can't sweet pickle maker her arms or move her neck well. [...] by mouth daily. ??? Lancets Misc by [facility].(Non-Drug; Combo Route) route daily. ??? Miscellaneous Medical Supply [facility] 1 strip by [facility].(Non-Drug; Combo Route) route daily. ??? clonAZEpam (KLONOPIN) [...] Clinical summary ?? A Likely Pathogenic variant, [id number] ([id number]*), was identified in TTN. The TTN gene is associated with autosomal dominant dilated cardiomyopathy (DCM) (MedGen UID: 2880).Additionally, the TTN gene is associated with a diverse group of disorders affecting skeletal muscles, including autosomal dominant tibial muscular dystrophy (TMD) (MedGen UID: 955575) and autosomal recessive limb- girdle muscular dystrophy type 2J (LGMD2J) (MedGen UID: 643790), autosomal recessive centronuclear myopathy (CNM) (PMID: 24819682), and autosomal dominant hereditary myopathy with earlyrespiratory failure (HMERF)(MedGen UID: 596770). Additional TTN-related conditions have also been reported (OMIM: 165110).This result is consistent with a predisposition to, or diagnosis of, autosomal dominant TTN-related conditions. TTN is associated with a clinically heterogeneous group of disorders, collectively known as the titinopathies, which can have distinct and/or overlapping features (PMID: 25045182, 98211253, 01857741). Correlation with a particular condition should include a review of the Variant. Details section of the report below. Pathogenic petz-tk-rcrdqmgm variants in the A-band are associated with an increased risk of autosomal dominant DCM, although associations with other types of cardiomyopathy have been suggested (PMID: 83999570, 44649347). DCM is defined by left ventricular dilation and systolic dysfunction. Symptoms include palpitations, dizziness, syncope, chestpain, shortness of breath, heart failure and in some cases sudden cardiac arrest/ (PMID: 39788683, 85915488). For more information about diagnosis and management of dilated cardiomyopathy, please visit [employer]'s website at [email or web address]. Some pathogenic missense variants in exon 343 ofthe A band are only known to be associated with HMERF. HMERF is an early adult-onsetdisorder characterized by proximal and distal skeletal muscle weakness of the upper and lower extremities and respiratory insufficiency (PMID: 74879824, 07341083). Muscle histopathology frequentlyiden tifies inclusion bodies and rimmed vacuoles (PMID: 07106544). Disease progression often includes loss of the ability to walk and the need for permanent ventilatory support relatively early in life (PMID: 93704578). Clinical, MRI, and histopathology similarities exist between HMERF and myofibrillar myopathies (PMID: 79479964). Pathogenic variants in the A-band may also be associated with autosomalrecessive neuromusculardisorders, including centronuclear myopathy and limb-girdle muscular dystrophy (PMID: 55835076, 64917902). 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 Muscle weakness Ordered: 01/02/2022 documented as of this encounter Results * CK (01/02/2022 10:43 AM EST) Creatine Kinase 32 0 - 160 unit/L [facility] Blood 01/02/2022 10:4 3 AM EST 01/02/2022 10:52 AM EST Narrative Resulting Agency Comment Spec In Lab Alla Richardson MD CHEMISTRY OR DERABLES [facility] [place] [address] * (ABNORMAL) pro-Brain Natriuretic Peptide (01/02/2022 10:43 AM EST) NT-proBNP 140(H) <=124 pg/mL [facility] Blood 01/02/2022 10:4 3 AM EST 01/02/2022 10:52 AM EST Narrative Resulting Agency Comment Spec In Lab Alla Richardson MD CHEMISTRY OR DERABLES [facility] [place] [address] * (ABNORMAL) Basic Metabolic Panel (non-fasting) (01/02/2022 10:43 AM EST) Glucose 209(H) 65 - 199 mg/dL [facility] Comment:Diabetes: >=200 mg/d L plus symptoms Blood Urea Nitrogen 10 8 - 18 mg/dL [facility] Creatinine 0.64(L) 0.70 - 1.20 mg/dL [facility] Sodium 137 135 - 145 mmol/L [facility] Potassium 4.4 3.5 - 5.0 mmol/L [facility] Comment: Please note: ??Patients with WBC >100,000 may have falsely elevated Potassium levels. ??For accurate Potassium quantification in these patients send serum separator tube (gold top) for subsequent determinations. ??Contact the Clinical Chemistry Laboratory if there are any questions. Chloride 101 98 - 107 mmol/L [facility] Carbon Dioxide 23 22 - 31 mmol/L [facility] Anion Gap 13 5 - 15 mmol/L [facility] Calcium 8.7 8.5 - 10.5 mg/dL [facility] Est Glomerular Filtration Rate 107 >=60 mL/min/1. 73 m?? [facility] Comment: This patient? 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
--- OUTSIDE RECORDS SUMMARY | 2024-07-05 19:49 | XMS_ITS | Encounter Summary ---
Author Organization [facility] [place] [address] Care Team Providers Care Hot Mill Worker Name Role Phone Edie Ellis MD Primary Care Provider [phone] Encounter Details Date Type Department Care Team (Latest Contact Info) Description 08/16/2021 9:40 AM EDT Laboratory Appointment Lab [address] [place] [phone] HFrEF (heart failure with reduced ejection fraction) [...] AM EDT Hospital Encounter Non-[place] [phone] Arrived documented as of this encounter Procedures Procedure Name Priority Date/Time Associated Diagnosis Comments HC VENIPUNCTURE Routine 08/16/2021 9:45 AM EDT HFrEF (heart failure with reduced ejection fraction) BASIC METABOLIC PANEL Routine 08/16/2021 9:45 AM EDT HFrEF (heart failure with reduced ejection fraction) documented in this encounter Results * (ABNORMAL) Basic Metabolic Panel (non-fasting) (08/16/2021 9:45 AM EDT) Glucose 122 65 - 199 mg/dL [facility] Comment:Diabetes: >=200 mg/d L plus symptoms Blood Urea Nitrogen 12 8 - 18 mg/dL [facility] Creatinine 0.66(L) 0.70 - 1.20 mg/dL [facility] Sodium 135 135 - 145 mmol/L [facility] Potassium 4.6 3.5 - 5.0 mmol/L [facility] Comment: Please note: ??Patients with WBC >100,000 may have falsely elevated Potassium levels. ??For accurate Potassium quantification in these patients send serum separator tube (gold top) for subsequent determinations. ??Contact the Clinical Chemistry Laboratory if there are any questions. Chloride 98 98 - 107 mmol/L [facility] Carbon Dioxide 28 22 - 31 mmol/L [facility] Anion Gap 9 5 - 15 mmol/L [facility] Calcium 9.5 8.5 - 10.5 mg/dL [facility] Est Glomerular Filtration Rate 106 >=60 mL/min/1. 73 m?? [facility] Comment: This patient? s estimated [...] MD CHEMISTRY OR DERABLES Performing Organization Address City/[facility]/ZIP Co de Phone Number [facility] [place] [address] * pro-Brain Natriuretic Peptide (08/16/2021 9:45 AM EDT) NT-proBNP 34 <=124 pg/mL [facility] Blood 08/16/2021 9:45 AM EDT 08/16/2021 10:01 AM EDT Narrative Resulting Agency Comment Spec In Lab Alla Richardson MD CHEMISTRY OR DERABLES Performing Organization Address City/[facility] [place] [address] documented in this encounter Visit Diagnoses Diagnosis HFrEF (heart failure with reduced ejection fraction) documented in this encounter Care Teams Hot Mill Worker Relationship Specialty Start Date End Date Edie Ellis MD [facility] [address] [place] [address] PCP - General 10/15/10 documented as of this encounter
--- OUTSIDE RECORDS SUMMARY | 2024-07-05 19:49 | XMS_ITS | Encounter Summary ---
[place] [address] Care Team Providers Care Meter Installer Name Role Phone Edie Ellis MD Primary Care Provider [phone] Encounter Details Date Type Department Care Team (Latest Contact Info) Description 10/25/2021 10:50 AM EST - 10/25/2021 11:59 PM EST [place] [address] Discharge Disposition: Home Social History Tobacco Use [...] a day 03/12/2015 naloxone (Narcan) 4 mg/actuation [place], Non-Aerosol Once 03/10/2019 magnesium oxide (MAG-OX) 400 [...] 2 diabetes mellitus without complication, unspecified whether remote computer terminal operator insulin use Take 10 mg by mouth [...] EDT Hospital Encounter Non-Invasive [place] [address] Arrived documented as of this encounter Procedures Procedure Name Priority Date/Time Associated Diagnosis Comments [facility] SENDOUT Routine 10/25/2021 1:52 PM EST documented in this encounter Results * [facility] Sendout (10/25/2021 1:52 PM EST) [facility] Sendout See Note [facility] Comment: The ordered test is: Cardiomyopathy and Arrhythmia Panel [facility], [address] [place] [address] [place] [address] See Scanned Report. Buccal Swab Other / Unknown 10/25/2021 1 :52 PM EST 11/11/2021 1:53 PM EST Nora Fernandes MD LAB SEND OUT [facility] [facility] [place] [phone] documented in this encounter Visit Diagnoses Not on filedocumented in this encounter Care Teams Meter Installer Relationship Specialty Start Date End Date Edie Ellis MD [address] [place] [address] PCP - General 10/15/10 documented as of this encounter
--- OUTSIDE RECORDS SUMMARY | 2024-07-05 19:49 | XMS_ITS | Encounter Summary ---
Author Organization Replaced By [facility] Address [facility] [place] [address] Care Team Providers Care Flatbed Press Operator Name Role Phone Edie Ellis MD Primary Care Provider [phone] Encounter Details Date Type Department Care Team (Late st Contact Info) Description 07/07/2022 1:00 PM EDT - 07/07/2022 2:05 PM EDT Surgery [place] [address] Denisse Pelaez MD [facility] [place] [address] (MSURG) MUSCLE BIOPSY, DEEP Social History Tobacco [...] call Dr. Pelaez at our office at [phone] 8am-5pm (weekdays) or after hours call and ask to have the electrical engineering draftsperson for Neurology paged. These instructions have been [...] a day 03/12/2015 naloxone (Narcan) 4 mg/actuation [place], Non-Aerosol Once 03/10/2019 magnesium oxide (MAG-OX) 400 [...] Pelaez MD - 07/07/2022 1:06 PM EDT [facility] Operative Note Patient Name: Jammie Gottlieb : [id number] MR#: [id number] Case Date: 07/07/2022 Surgeon: Surgeon(s) and Role: [...] AM EDT Hospital Encounter Non-Invasive [place] [address] Arrived documented as of this encounter Procedures [...] PM EDT 07/07/2022 1:[address] [facility] - 07/07/2022 1:06 PM EDT Specimen requisition ordered. ??Separate Pathology report to follow Denisse Pelaez MD PATHOLOGY/CYTOLOGY O RDERABLES [facility] [place] [address] * Surgical Pathology Report (07/07/2022 12:35 PM EDT) Final Diagnosis [id number] ? Location: OR; ORMN; A The signing [...] MD Verified: ??07/18/2022 16:14 ??Pathologist Performed at: ??-[facility] Dept. of Pathology, [place], [place] SYNOPTIC none DISCUSSION Paraffin-embedded fragments of [...] a few detached adipose tissue fragments. Sections/Processing: Infrastructure Director sections in 2 cassettes as follows: ?A1: ??Frozen in OCT for histochemistry. ?A2: ??Fixed in formalin for light microscopy. ??sns 07/18/2022 4:[address] [facility] MUSCLE SPECIMEN / Unknown 07/07/2022 12:35 PM EDT 07/07/2022 12:35 PM EDT Denisse Pelaez MD PATHOLOGY/CYTOLOGY O RDERABLES Performing Organization Address City/State/[facility] Co de Phone Number [facility] [place] [address] documented in this encounter Visit Diagnoses Diagnosis (muscular dystrophy) Hereditary progressive muscular dystrophy documented [...] MD) documented in this encounter Care Teams Flatbed Press Operator Relationship Specialty Start Date End Date Edie Ellis MD [address] [place] [address] PCP - General 10/15/10 documented as of this encounter
--- OUTSIDE RECORDS SUMMARY | 2024-07-05 19:49 | XMS_ITS | Encounter Summary ---
Author Organization [facility] Address [facility] [place] [address] Care Team Providers Care Quality Assurance Practice Manager Name Role Phone Edie Ellis MD Primary Care Provider [phone] Reason for Referral * Consultation (Routine) - Closed Specialty Diagnoses / Procedures Referred By Geraldine olmedo Referred To Contact Genetics Diagnoses Cardiomyopathy, unspecified type Kina Griffin PA [facility] [place] [address] [address] Referral ID Status Reason Start Date Expiration Date V isits Requested Visits Authorized [id number] Closed Consult, Test & Treat 06/17/2021 06/17/2022 1 1 Reason for Visit * Consultation (Routine) - Closed Specialty Diagnoses / Procedures Referred By Geraldine olmedo Referred To Contact Cardiology Diagnoses Cardiomyopathy, unspecified Cardiomyopathy. Needs CMRI and referral to HF for family hx of CM *SCANNED DOCS Edie Ellis MD [address] [place] [address] Alla Nash MD [facility] [place] [address] Referral ID Status Reason Start Date Expiration Date Visits Re quested Visits Authorized [id number] Closed 04/09/2021 04/09/2022 1 1 Encounter Details Date Type Department Care Team (Late st Contact Info) Description 06/17/2021 9:00 AM EDT Office Visit Cardiology at [address] [place] [address] Alla Nash MD [facility] [place] [address] Kina Griffin PA [facility] [place] [address] Cardiomyopathy, unspecified type Social History Tobacco Use [...] documented in this encounter Progress Notes * Knia Griffin PA - 06/17/2021 9:00 AM EDT Images from the original note were not included. [facility] Section of Advanced Heart Failure Cardiology [facility] [address] [place], [place] [address] OUTPATIENT VISIT DATE: 06/09/21 OUTPATIENT VISIT TYPE: [...] Last syncopal event Aug 2020, admitted to [facility]. Loss of urine. Placed on Keppra, [...] thus delayed admission. Called PCP. Directed to [facility]. Told this was a CHF exacerbation. [...] by mouth daily. ??? Lancets Misc by [facility] [place].(Non-Drug; Combo Route) route daily. ??? Miscellaneous Medical Supply Misc 1 strip by [facility] [place].(Non-Drug; Combo Route) route daily. [...] Diuretic Lasix 20 mg daily ICD or CLOSING AGENT-D if indicated Not indicated with LVEF >35% [...] Attending Addendum I was the assigned attending purse maker for this clinical encounter. For the purposes of billing,I was directly involved in the clinical decision making and the plan of care is reasonable. Please see the note by ANNE Griffin for full details, in brief: aJmmie Gottlieb is a 46 y.o. year old [...] in clinic after genetic testing to determine terminal gauger supervisor plan for follow up. Thank you for allowing us to participate in the care of this patient. For any additional questions,my pager is #[phone]. Alla Juárez MD MPH Advanced Heart Disease & Cardiac Transplant Attending 06/17/2021, 12:43 PM documented in this encounter Plan of Treatment Upcoming Encounters Date Type Department Care Team (Late st Contact Info) Description 07/09/2024 10:00 AM EDT Hospital Encounter Non-[place] [address] Arrived Scheduled Referrals Name Type Priority Associated Diagnoses Orde r Schedule Referral to Genetics Outpatient Referral Routine Cardiomyopathy, unspecified type Ordered: 06/17/2021 documented as of this encounter Visit Diagnoses Diagnosis Cardiomyopathy, unspecified type documented in this encounter Care Teams Quality Assurance Practice Manager Relationship Specialty Start Date End Date Edie Ellis MD [facility] [address] [place] [address] PCP - General 10/15/10 documented as of this encounter
--- OUTSIDE RECORDS SUMMARY | 2024-07-05 19:49 | XMS_ITS | Encounter Summary ---
Author Organization [facility] [place] [address] Care Team Providers Care Wax Specialist Name Role Phone Edie Ellis MD Primary Care Provider [phone] Encounter Details Date Type Department Care Team (Late st Contact Info) Description 06/14/2021 Orders Only Cardiology at [address] [address] Maryam Crouch RN Social History [...] AM EDT Hospital Encounter Non-[place] [address] Arrived documented as of this encounter Visit Diagnoses Not on filedocumented in this encounter Additional Health Concerns Infection Onset Date Last Indicated Resolved Time Rule Out COVID-19 07/01/2021 07/01/2021 07/01/2021 12:54 PM EDT documented as of this encounter Care Teams Wax Specialist Relationship Specialty Start Date End Date Edie Ellis MD [address] [place] [address] PCP - General 10/15/10 documented as of this encounter
--- OUTSIDE RECORDS SUMMARY | 2024-07-05 19:49 | XMS_ITS | Encounter Summary ---
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 Muscle weakness Kina Awad PA [facility] [place] [address] [facility] [address] [place] [address] Referral ID Status Reason Start Date Expiration Date V isits Requested Visits Authorized [id number] Closed Consult, Test & Treat 01/02/2022 01/02/2023 1 1 Encounter Details Date Type Department Care Team (Late st Contact Info) Description 06/03/2022 8:30 AM EDT Office [place] [address] Kieran Harkins MD [facility] [place] [address] Muscular dystrophy Social History Tobacco Use [...] as of this encounter Progress Notes * Kieran Harkins MD - 06/03/2022 8:30 AM EDT NEUROLOGY CLINIC [facility] [place] [address] 06/03/2022 Patient name: Jammie Gottlieb Date of : 1975 Referring provider: Kina Awad PA [facility] [place] [address] HISTORY REASON FOR REFERRAL/CHIEF COMPLAINT: TTN gene [...] naratriptan. She had previously seen Neurology at [facility] and had UE testing done showing [...] ARRAY, EPIDURAL performed by CARINE CHATTERJEE at [facility] MAIN OR ??? PRO UNLISTED PROCEDURE, [...] a day ??? naloxone (Narcan) 4 mg/actuation [place], Non-Aerosol Once ??? nicotine (NICODERM CQ) 7 [...] found for: CRP B12No results found for: [id number] CK Lab Results Component Value Date CK [...] 60 06/17/2021 SHAHAB 65No results found for: [id number] ANTI GM1,ANTI SGPG, MAG@RESUFAST (MAGAUTOAB,SGPG,MAGWB,GM1AB)@ HEAVY METAL [...] ANNA1, ANNA2, ANNA3, AGNA1, PCA1, PCA2, PCATYPETR, AMPHIPHYSIN,OWDY0COD, STRIATMSCLAB, CACHABPQTYPE, CACHABNTYPE, ACHRBINDAB, NEUROKCHAB, NMDARECEPTOR, MSC34CY THROMBOSIS HOMEOCYSTEINENo results found for: HOMOCYSTEINE THROMBOSIS PANELNo results found for: ACAIGM, [id number] FACTOR V LEIDEN No components found for: [...] Will arrange visits and follow up with [facility] clinic if muscle biopsy findings are positive. ??? Physical therapy recommended for strengthening. ??? Follow ups based on above. Kieran Harkins MD Department of Neurology [facility] documented in this encounter Plan of Treatment Upcoming Encounters Date Type Department Care Team (Late st Contact Info) Description 07/09/2024 10:00 AM EDT Hospital Encounter Non-[place] [address] Arrived documented as of this encounter Procedures Procedure Name Priority Date/Time Associated Diagnosis Comments EMG WITH F-WAVE Routine 06/03/2022 documented in this encounter Results * EMG WITH F-WAVE (06/03/2022) Historical Provider NEUROLOGY ORDERAB LES documented in this encounter Visit Diagnoses Diagnosis Muscular dystrophy Hereditary progressive muscular dystrophy documented in this encounter Care Teams Vp Software Support Relationship Specialty Start Date End Date Edie Ellis MD [address] [place] [address] PCP - General 10/15/10 documented as of this encounter
--- OUTSIDE RECORDS SUMMARY | 2024-07-05 19:49 | XMS_ITS | Encounter Summary ---
Author Organization [facility] Address [facility] [place] [address] Care Team Providers Care Software Licensing Analyst Name Role Phone Edie Ellis MD Primary Care Provider [phone] Encounter Details Date Type Department Care Team (Latest Contact Info) Description 09/06/2021 7:13 AM EDT - 09/06/2021 3:02 PM EDT Hospital Encounter [place] [address] Justino Washburn MD [facility] [place] [address] HFrEF (heart failure with reduced ejection fraction); [...] by your doctor, do not take any hnnk-tov-pyyxiuz medicinesor herbal preparations without first discussing this with your doctor or pharmacist. There is the possibility of side effects and interactions when these are combined. Follow Up Care Who to call with questions or problems If there are any questions or problems that you think might be related to your cardiac cath or angioplasty, contact the manager animal excavating contractor by calling [facility] at . documented in this encounter [...] a day 03/12/2015 naloxone (Narcan) 4 mg/actuation [place], Non-Aerosol Once 03/10/2019 magnesium oxide (MAG-OX) 400 [...] 2 diabetes mellitus without complication, unspecified whether longwall machine operator helper insulin use Take 10 mg by mouth [...] QTC Calculated (Bezet) 469 ms Calculated P [place] 9 degrees Calculated R [place] -5 degrees Calculated T [place] 18 degrees INTERPRETATION Normal sinus rhythm Low [...] from the original note were not included. [facility] [place] [address] CORONARY ANGIOGRAM AND PERCUTANEOUS CORONARY INTERVENTION REPORT Patient: Jammie Gottlieb : 1975 MR number: [id number] Date of Service: 09/06/2021 Physical Therapy Professor: Justino Washburn MD Fellow: Femi Koroma MD [...] obtained. The patient was brought to the engineering laboratory technician and placed onthe table. Time [...] no procedural complications. ??? I provided direct tygg-uv-hjje monitoring of conscious sedation which was administered [...] AM EDT Hospital Encounter Non[place] [address] Arrived documented as of this [...] Modality Other Narrative 09/06/2021 12:54 PM EDT ?[facility] ? Cardiac Catheterization/Intervention Report ? Patient Name: Jammie Gottlieb. ? Procedure Date: 09/06/2021 ? A #: [id number] ? Primary Physician: Washburn, Justino P ? Case #: [id number] ? File Name: [id number] ? Catheterization Order Number: [id number] ? [facility] ? Final Report [place], [place] ? Patient Name: ? Jammie Gottlieb ? ID#: ?[id number] ? : ?1975 ? Procedure Date: ? September 06, 2021 ? Case #: ? [id number] ? Room: ? 1 ? Case Physician: [...] procedure was Elective. The indication for ?the engineering laboratory technician visit is cardiomyopathy. Chest pain [...] Procedure Note Justino Washburn MD - 09/06/2021 [facility] Cardiac Catheterization/Intervention Report Patient Name: Jammie Gottlieb Procedure Date: 09/06/2021 A #: [id number] Primary Physician: Justino Washburn Case #: [id number] File Name: [id number] Catheterization Order Number: [id number] [facility] FinalReport [place], [place] Patient Name: Jammie Gottlieb ID#:[id number] :1975 Procedure Date: September 06, 2021 Case [...] was designated as ASA Class II. The [facility] clinical frailtyscale is 3: Managing Well. Diagnostic Tests: Prior Coronary Angiography: LV ejection fraction within 6 months is 41%. Medications Prior to Procedure: Angiotensin Converting Enzyme Inhibitor, Aspirin, Beta Blockerand Statin. Indications for Diagnostic Cath: The priority of the diagnostic procedure was Elective. Theindication for the engineering laboratory technician visit is cardiomyopathy. Chest pain [...] * POCT Glucose (09/06/2021 8:23 AM EDT) [facility] Glucose, POC 109 65 - 199 mg/dL [facility] Comment: Supplemental ranges: <140 mg/dL before meals <180 mg/dL all other times of the day Blood 09/06/2021 8:23 AM EDT 09/06/2021 8:23 AM EDT Justino Washburn MD POINT OF CARE TEST O RDERABLES [facility] [place] [address] * (ABNORMAL) Differential, Automated (09/06/2021 8:10 AM EDT) [facility] Neutrophil % 65.0 % [facility] Neutrophil Absolute 7.22(H) 1.70 - 6.10 x10(3)/mc L [facility] Lymph % 27.0 % [facility] Lymphocytes Abs 3.0 0.9 - 3.2 x10(3)/mc L [facility] Monocyte % 5.0 % [facility] Monocyte Abs 0.6 0.3 - 0.9 x10(3)/mc L [facility] Eos % 1.9 % [facility] Eosinophils Abs 0.2 0.0 - 0.4 x10(3)/mc L [facility] Basophil % 0.7 % [facility] Baso Absolute 0.1 0.0 - 0.1 x10(3)/[facility] Immature Gran % 0.40 % [facility] Comment: Immature granulocytes(IG's)percentage and absolute count will include metamyelocytes, myelocytes, and promyelocytes. Blood smears from CBCs yielding IG's will be scanned manually for concordance. If this scan disagrees with the automated IG or if promyelocytes are noted, a manual differential will be performed. Immature Gran Absolute 0.04 0.00 - 0.04 x10(3)/[facility] Blood 09/06/2021 8:10 AM EDT 09/06/2021 8:28 AM EDT Narrative Resulting Agency Comment Spec In Lab Kina RODRÍGUEZ HEMATOLOGY ORDERABLE S [facility] [place] [address] * (ABNORMAL) Hemogram (09/06/2021 8:10 AM EDT) White Blood Cell 11.1(H) 4.0 - 9.5 x10(3)/[facility] Red Blood Cell 5.06 4.00 - 5.21 x10(6)/[facility] Hemoglobin 14.8 11.7 - 15.5 g/dL [facility] Hematocrit 45.1 35.7 - 45.8 % [facility] Mean Cell Volume 89.1 82.6 - 94.4 fL [facility] Mean Cell Hemoglobin 29.2 27.1 - 32.0 pg [facility] Mean Cell Hemoglobin Concentration 32.8 31.7 - 35.0 g/dL [facility] Platelet 255 145 - 357 x10(3)/[facility] RDW Standard Deviation 44.4 37.0 - 46.0 fL [facility] RDW coefficient of variation 13.6 11.5 - 14.1 % [facility] Mean Platelet Volume 10.3 7.6 - 12.9 fL [facility] NRBC% auto 0.0 % [facility] NRBC Absolute 0.000 0.000 - 0.000 x10(3)/mc L [facility] Blood 09/06/2021 8:10 AM EDT 09/06/2021 8:28 AM EDT Narrative Resulting Agency Comment Spec In Lab Kina RODRÍGUEZ HEMATOLOGY ORDERABLE S Performing Organization Address [facility] Co de Phone Number [facility] [place] [address] * Prothrombin Time (09/06/2021 8:10 AM EDT) Prothrombin Time 11.8 9.4 - 12.5 sec [facility] International Normalization Ratio 1.0 [facility] Comment: An INR <2.0 indicates [...] MD HEMATOLOGY O RDERABLES Performing Organization Address City/[facility]/ZIP Co de Phone Number [facility] [place] [address] * (ABNORMAL) BMP w/fasting Glucose (09/06/2021 8:10 AM EDT) Glucose Fasting 112(H) 65 - 99 mg/dL [facility] Comment: ?Fasting* Glucose Interpretive Criteria [...] of Diabetes Mellitus, Position Statement from the [place] [employer]. ??Diabetes Care, Volume 33, Supplement 1, Nov 2009 Blood Urea Nitrogen 20(H) 8 - 18 mg/dL [facility] Creatinine 0.68(L) 0.70 - 1.20 mg/dL [facility] Sodium 139 135 - 145 mmol/L [facility] Potassium 4.4 3.5 - 5.0 mmol/L [facility] Comment: Please note: ??Patients with WBC >100,000 may have falsely elevated Potassium levels. ??For accurate Potassium quantification in these patients send serum separator tube (gold top) for subsequent determinations. ??Contact the Clinical Chemistry Laboratory if there are any questions. Chloride 99 98 - 107 mmol/L [facility] Carbon Dioxide 26 22 - 31 mmol/L [facility] Anion Gap 14 5 - 15 mmol/L [facility] Calcium 9.8 8.5 - 10.5 mg/dL [facility] Est Glomerular Filtration Rate 105 >=60 mL/min/1. 73 m?? [facility] Comment: This patient? s estimated [...] Lab Alla Richardson MD [place] [address] documented in this encounter Visit Diagnoses Diagnosis [...] Until Thu09/06/21 at 1703, Pain, while in engineering laboratory technician, Routine Given 09/06/2021 11:53 AM [...] Until Thu09/06/21 at 1703, Pain, while in engineering laboratory technician, Routine 1153 (Given - Provid [...] Baker) documented in this encounter Care Teams Software Licensing Analyst Relationship Specialty Start Date End Date Edie Ellis MD [facility] [address] [place] [address] PCP - General 10/15/10 documented as of this encounter
--- OUTSIDE RECORDS SUMMARY | 2024-07-05 19:49 | XMS_ITS | Encounter Summary ---
Author Organization [facility] [place] [address] Care Team Providers Care Rotary Drier Name Role Phone Edie Ellis MD Primary Care Provider [phone] Encounter Details Date Type Department Care Team (Late st Contact Info) Description 11/11/2021 Telephone Medical Genetics at [address] [phone] [place] [facility] [place] [address] Social History Tobacco Use Types Packs/Day Years [...] the BC protections do not extendto life, superintendent marine oil terminal care, or disability insurance policies. 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 The TTN gene is associated with autosomal dominant dilated cardiomyopathy (DCM) (MedGen UID: 2880).Additionally, the TTN gene is associated with a diverse group of disorders affecting skeletal muscles, including autosomal dominant tibial muscular dystrophy (TMD) (MedGen UID: 288505) and autosomal recessive limb-girdle musculardystrophy type 2J (LGMD2J) (MedGen UID: 997855), autosomal recessive centronuclear myopathy (CNM) (PMID: 15024839), and autosomal dominant hereditary myopathy with early respiratory failure (HMERF)(MedGen UID: 778711). Additional TTN-related conditions have also been reported (OMIM: 590798). This result is consistent with a predisposition to, or diagnosis of, autosomal dominant TTN-relatedconditions. TTN is associated with a clinically heterogeneous group of disorders, collectively known as the titinopathies, which can have distinct and/or overlapping features (PMID: 53531198, 70017417, 92269426). Correlation with a particular condition should include a review of the Variant Details section of the report below. Pathogenic ioty-lr-baznmxbs variants in the A-band are associated with an increased risk of autosomal dominant DCM, although associations with other types of cardiomyopathy have been suggested (PMID: 87271420, 82774162). DCM is defined by left ventricular dilation and systolic dysfunction. Symptoms include palpitations, dizziness, syncope, chest pain, shortness of breath, heart failure and in some cases sudden cardiac arrest/ (PMID: 30342248, 71755052). For more information about diagnosis and management of dilated cardiomyopathy, please visit [employer]'s website at [email or web address]. Some pathogenic missense variants in exon 343 ofthe A band are only known to be associated with HMERF. HMERF is an early adult-onset disorder characterized by proximal and distal skeletal muscle weakness of the upper and lower extremities and respiratory insufficiency (PMID: 13255430, 27345159). Muscle histopathology frequentlyidentifies inclusion bodies and rimmed vacuoles (PMID: 83436495). Disease progression often includes loss of the ability to walk and the need for permanent ventilatory support relatively early in life (PMID: 07344068). Clinical, MRI, and histopathology similarities exist between HMERF and myofibrillar myopathies (PMID: 23900945). Pathogenic variants in the A-band may also be associated with autosomal recessive neuromusculardisorders, including centronuclear myopathy and limb-girdle muscular dystrophy (PMID: 82100048, 73021640). Biological relatives have a chance of being at risk for autosomal dominant TTN- related conditions and have a chance of being carriers for autosomal recessive TTN-related conditions. Those at risk should consider testing. A Variant of Uncertain Significance, c.1392G>C (p.Zaq373Fyw), was identified in GAA. The GAA gene is associated with autosomal recessive Pompe disease, also known as glycogen storage disease type II (GSDII) ([facility] UID: 5340).Not all variants present in [...] Variant Testing Programs can be found at https://www.ChipIn/family. 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 While this is not anticipated to result in nonsense mediated decay, it is expected to create a truncated TTN protein. This variant is not present in population databases (NeuroTronikD no frequency). This premature translational stop signal has been observed in individual(s) with dilated cardiomyopathy (PMID: 38195533). This variant is also known as c.13258L>T (p.Ycl37195elin). ClinVar contains an entry for this variant (Variation ID: [id number]). Algorithms developed to predict the effect of sequence changes on RNA splicing suggest that this variant may create or strengthen a splice site. This variant is located in the A band of TTN (PMID: 58818754). Truncating variants in this region are significantly overrepresented in patients affected with dilated cardiomyopathy (PMID: 72394377). Truncating variants in this region have alsobeen reported in individuals affected with autosomal recessive centronuclear myopathy (PMID: 89850164). In summary, the currently available evidence indicates that the variant is pathogenic, but additional data are needed to prove that conclusively. Therefore, this variant has been classified as Likely Pathogenic. 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 This variant is present in population databases ([id number], gnomAD 0.01%). This missense change has been observed in individual(s) with a positive screening result for GAA-related disease (PMID: 41612388). ClinVar contains an entry for this variant (Variation ID: [id number]). Algorithms developed to predict the effect of [...] AM EDT Hospital Encounter [place] [address] Arrived documented as of this encounter Visit Diagnoses Not on filedocumented in this encounter Care Teams Rotary Drier Relationship Specialty Start Date End Date Edie Ellis MD [address] [place] [address] PCP - General 10/15/10 documented as of this encounter
--- OUTSIDE RECORDS SUMMARY | 2024-07-05 19:49 | XMS_ITS | Encounter Summary ---
Author Organization [facility] Address [facility] [place] [address] Care Team Providers Care Regulatory And Compliance Technician Name Role Phone Edie Ellis MD Primary Care Provider [phone] Reason for Referral * Diagnostic Test (Routine) - Closed Specialty Diagnoses / Procedures Referred By Geraldine t Referred To Contact Cardiology Diagnoses HFrEF (heart failure with reduced ejection fraction) Pulmonary hypertension Procedures Echocardiogram Transthoracic([facility] Kina Awad PA [facility] [place] [address] [facility] [place] [address] Referral ID Status Reason Start Date Expiration Date V isits Requested Visits Authorized [id number] Closed Specialty Service Requested 09/09/2021 09/09/2022 1 1 Encounter Details Date Type Department Care Team (Late st Contact Info) Description 09/06/2021 10:40 AM EDT Office Visit Cardiology at [address] [address] Kina Awad PA [facility] [place] [address] HFrEF (heart failure with reduced [...] from the original note were not included. [facility] Section of Advanced Heart Failure Cardiology [facility] [place] [address] OUTPATIENT VISIT DATE: 06/09/21 OUTPATIENT VISIT TYPE: [...] palpitations, overall unchanged and notably rare. Recommended /[facility] to further evaluate. Upcoming appointment with a [...] by mouth daily. ??? Lancets Misc by [facility].(Non-Drug; Combo Route) route daily. ??? Miscellaneous Medical Supply Misc 1 strip by [facility].(Non-Drug; Combo Route) route daily. ??? clonAZEpam [...] MACY Diuretic Stop Lasix today ICD or MATERIAL MAN-D if indicated Not indicated with LVEF >35% [...] AM EDT Hospital Encounter Non[place] [address] Arrived documented as of this encounter Results * ECHO COMPLETE (01/02/2022 10:18 AM EST) EF 52 HEARTLAB SYSTEM Anatomical Region Laterality Modality Other 01/02/2022 Narrative 01/02/2022 10:32 AM EST Procedure: ?Transthoracic Echocardiogram Patient: ?CARSON MCCANN A ? (Age): 1975(46y) Med Rec#: ? [id number] ?Sex: ?F ? Site Loc: ? [facility] ?Ht / Wt: ??163(cm)/94(kg) Pt. Loc: ?Echo Lab ?BSA: ?1.99 Study Date: ?? 01/02/2022 ?Pt. Type: Outpatient Tape: ? Referring: PRECIOUS Reading: Bassem Luke Levy ??([id number]) Miniature Set Designer: Wil Cuellar [facility] Diagnosis: *Cardiomyopathy, unspecified (I42.9) Rhythm: ? Tachycardia [...] 01/02/2022 10:31:41 Images reviewed and interpretation verified [facility] Cardiac Ultrasound Laboratory Procedure Note Luke Luevano MD - 01/02/2022 Procedure: Transthoracic Echocardiogram Patient: CARSON METZGER(Age): 1975(46y) Med Rec#: [id number] Sex: F Site Loc: [facility] Ht / Wt: 163(cm)/94(kg) Pt. Loc: Echo Lab BSA: 1.99 Study Date: 01/02/2022 Pt. Type: Outpatient Tape: Referring: PRECIOUS Reading: Luke Luevano ([id number]) Miniature Set Designer: Wil Cuellar RDCS, FASE Diagnosis: *Cardiomyopathy, unspecified [...] 01/02/2022 10:31:41 Images reviewed and interpretation verified [facility] Cardiac Ultrasound Laboratory Alla Richardson MD ECHO ORDERAB LES documented in this encounter Visit Diagnoses Diagnosis HFrEF (heart failure with reduced ejection fraction) Pulmonary hypertension Other chronic pulmonary heart diseases HFrEF (heart failure with reduced ejection fraction) Pulmonary hypertension Other chronic pulmonary heart diseases documented in this encounter Care Teams Regulatory And Compliance Technician Relationship Specialty Start Date End Date Edie Ellis MD [facility] [address] [place] [address] PCP - General 10/15/10 documented as of this encounter
--- OUTSIDE RECORDS SUMMARY | 2024-07-05 19:49 | XMS_ITS | Encounter Summary ---
Author Organization [facility] Address [facility] [place] [address] Care Team Providers Care Archivist Name Role Phone Edie Ellis MD Primary Care Provider [phone] Encounter Details Date Type Department Care Team (Latest Contact Info) Description 07/07/2022 12:18 PM EDT - 07/07/2022 1:51 PM EDT Hospital Encounter [place] [address] Denisse Pelaez MD [facility] [place] [address] Discharge Disposition: Home Social History Tobacco Use [...] call Dr. Pelaez at our office at [phone] 8am-5pm (weekdays) or after hours call and ask to have the interventional sale consultant for Neurology paged. These instructions have been [...] a day 03/12/2015 naloxone (Narcan) 4 mg/actuation [place], Non-Aerosol Once 03/10/2019 magnesium oxide (MAG-OX) 400 [...] Pelaez MD - 07/07/2022 1:06 PM EDT [facility] Operative Note Patient Name: Jammie Gottlieb : [id number] MR#: [id number] Case Date: 07/07/2022 Surgeon: Surgeon(s) and Role: [...] AM EDT Hospital Encounter Non-Invasive [place] [address] Arrived documented as of this encounter Procedures [...] PM EDT 07/07/2022 1:06 PM EDT Narrative [facility] - 07/07/2022 1:06 PM EDT Specimen requisition ordered. ??Separate Pathology report to follow Denisse Pelaez MD PATHOLOGY/CYTOLOGY O RDERABLES [facility] [place] [address] * Surgical Pathology Report (07/07/2022 12:35 PM EDT) Final Diagnosis [id number] ? Location: OR; ORMN; A The signing [...] MD Verified: ??07/18/2022 16:14 ??Pathologist Performed at: ??-[facility] Dept. of Pathology, [place], [place] SYNOPTIC none DISCUSSION Paraffin-embedded fragments of [...] a few detached adipose tissue fragments. Sections/Processing: Outcome Analyst sections in 2 cassettes as follows: ?A1: ??Frozen in OCT for histochemistry. ?A2: ??Fixed in formalin for light microscopy. ??sns 07/18/2022 4:14 PM EDT [facility] MUSCLE SPECIMEN / Unknown 07/07/2022 12:35 PM EDT 07/07/2022 12:35 PM EDT Denisse Pelaez MD PATHOLOGY/CYTOLOGY O RDERABLES [facility] [place] [address] documented in this encounter Visit Diagnoses Not on filedocumented in this encounter Active and Recently Administered Medications Times are shown in EDT. PRN Medication Order 07/05/2022 07/06/2022 07/07/2022 lidocaine-EPINEPHrine (1% - 1:100,000) injection (CANCELED) ONCE PRN, Starting on Thu07/07/22 at 1307, Until Thu07/07/22 at 1511, Intra-Operative (Intra-Procedure), Routine 1307 (Given - Provid er: Denisse Pelaez MD) documented in this encounter Care Teams Archivist Relationship Specialty Start Date End Date Edie Ellis MD [address] [facility] [address] [place] [address] PCP - General 10/15/10 documented as of this encounter
--- OUTSIDE RECORDS SUMMARY | 2024-07-05 19:49 | XMS_ITS | Encounter Summary ---
Author Organization [facility] Address [facility] [place] [address] Care Team Providers Care Engineering Project Designer Name Role Phone Edie Ellis MD Primary Care Provider [phone] Reason for Referral * Consultation (Routine) - [...] to see. She sees Dr Eid at [facility]. This seems confusing that we would get a referral. Thanks! Vani Evangelista MD [facility] [place] [address] Alla Nash MD [facility] [place] [address] Referral ID Status Reason Start Date Expiration Date V isits Requested Visits Authorized [id number] Closed Consult, Test & Treat 07/01/2021 07/01/2022 1 1 Reason for Visit * Reason Comments Shortness of Breath Dizziness Encounter Details Date Type Department Care Team ([facility] Contact Info) Description 07/01/2021 9:26 AM EDT - 07/01/2021 1:38 PM EDT Emergency Emergency Department [facility] [place] [address] Fior Little MD [facility] [place] [address] SOB (shortness of breath) Discharge Disposition: Home [...] a day 03/12/2015 naloxone (Narcan) 4 mg/actuation [place], Non-Aerosol Once 03/10/2019 magnesium oxide (MAG-OX) 400 [...] cardiomyopathy, CHF, A. fib [facility] tightness and lightheadedness. Symptoms started last night with chest tightness, leg swelling and shortness of breath. This morning she woke up with a headache and some lightheadedness. She came to [facility] for blood work where she was extremely [...] pneumonia, electrolyte abnormality ACS-has a history of OK. Troponin negative and EKG shows no signs [...] per day. BNP is elevated to 666. [id number] has been partially vaccinated. Receiving her first [...] AM EDT Hospital Encounter [place] [address] Arrived Scheduled Orders Name Type Priority Associated [...] 07/01/2021 10:00 AM EDT BASIC METABOLIC PANEL STAT 07/01/2021 10:00 AM EDT EKG 12-LEAD STAT 07/01/2021 9:59 AM EDT RAPID COVID-19 PCR ([facility]) STAT 07/01/2021 9:59 AM EDT documented [...] who have questions please contact the health vehicle care specialist that requested your imaging first. ? Narrative [...] patients who have questions please contactthe health vehicle care specialist that requested your imaging first. Fior Little MD IMG DX ORDERABLES * D-Dimer, Quantitative (07/01/2021 10:00 AM EDT) D-Dimer 251 0 - 500 FEU ng/ml [facility] Comment: The D-Dimer assay is [...] Lab Fior Little MD HEMATOLOGY ORDERABL ES Performing Organization Address City/Va Hospital/ZIP Co de Phone Number [facility] [place] [address] * Abraham Tube Hold (07/01/2021 10:00 AM EDT) Abraham Hold Sample in lab. [facility] Blood Venous Draw / Unknown 07/01/2021 10:00 AM EDT 07/01/2021 10:11 AM EDT Vani Evangelista MD CHEMISTRY ORDERAB LES Performing Organization Address [facility]/Va Hospital/[facility] Co de Phone Number [facility] [place] [address] * Gold Tube HOLD (07/01/2021 10:00 AM EDT) Gold Hold Sample in lab. [facility] Blood Venous Draw / Unknown 07/01/2021 10:00 AM EDT 07/01/2021 10:10 AM EDT Vani Evangelista MD CHEMISTRY ORDERAB LES Performing Organization Address City/Va Hospital/ZIP Co de Phone Number [facility] [place] [address] * Blue Tube HOLD (07/01/2021 10:00 AM EDT) Blue Hold Sample in lab. [facility] Blood Venous Draw / Unknown 07/01/2021 10:00 AM EDT 07/01/2021 10:10 AM EDT Vani Evangelista MD HEMATOLOGY ORDERA BLES Performing Organization Address City/Va Hospital/ZIP Co de Phone Number [facility] [place] [address] * Differential, Automated (07/01/2021 10:00 AM EDT) Pathologist [facility] Neutrophil % 56.0 % [facility] Neutrophil Absolute 4.88 1.70 - 6.10 x10(3)/[facility] Lymph % 33.6 % [facility] Lymphocytes Abs 2.9 0.9 - 3.2 x10(3)/[facility] Monocyte % 4.5 % [facility] Monocyte Abs 0.4 0.3 - 0.9 x10(3)/[facility] Eos % 4.7 % [facility] Eosinophils Abs 0.4 0.0 - 0.4 x10(3)/[facility] Basophil % 1.0 % [facility] Baso Absolute 0.1 0.0 - 0.1 x10(3)/[facility] Immature Gran % 0.20 % [facility] Comment: Immature granulocytes(IG's)percentage and absolute count will include metamyelocytes, myelocytes, and promyelocytes. Blood smears from CBCs yielding IG's will be scanned manually for concordance. If this scan disagrees with the automated IG or if promyelocytes are noted, a manual differential will be performed. Immature Gran Absolute 0.02 0.00 - 0.04 x10(3)/[facility] Blood 07/01/2021 10:0 0 AM EDT 07/01/2021 10:09 AM EDT Narrative Resulting Agency Comment Spec In Lab Vani Evangelista MD HEMATOLOGY ORDERA BLES [facility] [place] [address] * (ABNORMAL) Hemogram (07/01/2021 10:00 AM EDT) [facility] White Blood Cell 8.7 4.0 - 9.5 x10(3)/[facility] Red Blood Cell 4.33 4.00 - 5.21 x10(6)/mc L [facility] Hemoglobin 12.9 11.7 - 15.5 gm/dL [facility] Hematocrit 39.4 35.7 - 45.8 % [facility] Mean Cell Volume 91.0 82.6 - 94.4 fL [facility] Mean Cell Hemoglobin 29.8 27.1 - 32.0 pg [facility] Mean Cell Hemoglobin Concentration 32.7 31.7 - 35.0 gm/dL [facility] Platelet 183 145 - 357 x10(3)/mc L [facility] RDW Standard Deviation 46.7(H) 37.0 - 46.0 fL [facility] RDW coefficient of variation 14.1 11.5 - 14.1 % [facility] Mean Platelet Volume 10.6 7.6 - 12.9 fL [facility] NRBC% auto 0.0 % [facility] NRBC Absolute 0.000 0.000 - 0.000 x10(3)/mc L [facility] Blood 07/01/2021 10:0 0 AM EDT 07/01/2021 10:09 AM EDT Narrative Resulting Agency Comment Spec In Lab Vani Evangelista MD HEMATOLOGY ORDERA BLES Performing Organization Address City/Va Hospital/[place] [address] * (ABNORMAL) pro-Brain Natriuretic Peptide (07/01/2021 10:00 AM EDT) NT-proBNP 666(H) <=124 pg/mL [facility] Blood 07/01/2021 10:0 0 AM EDT 07/01/2021 10:09 AM EDT Narrative Resulting Agency Comment Spec In Lab Fior Little MD CHEMISTRY ORDERABLE S [facility] [place] [address] * Troponin (07/01/2021 10:00 AM EDT) [facility] Troponin-T <0.01 0.00 - 0.00 ng/mL [facility] Comment: The 99th percentile for Troponin T is less than 0.01 ng/mL, any detectable cTnT concentration using this assay should be considered elevated. According to the third universal definition of myocardial infarction the following criteria with a clinical presentation consistent with acute myocardial ischemia meets the diagnosis for a myocardial infarction (OK). Detection of a rise and/or fall of cTnT, with at least one value greater than the 99th percentile (> or = 0.01) and with at least one of the following ?? Symptoms of ischemia ?? New or presumed new significant [id number]-G wave (ST-T) changes or new left bundle [...] additional sample may be indicated. Reference: Third [place] Definition of Myocardial Infarction. Journal of the [place] [employer]iology 2012;60:1581-98 Blood 07/01/2021 10:0 0 AM EDT 07/01/2021 10:09 AM EDT Narrative Resulting Agency Comment Spec In Lab Fior Little MD CHEMISTRY ORDERABLE S [facility] [place] [address] * Basic Metabolic Panel (non-fasting) (07/01/2021 10:00 AM EDT) [facility] Glucose 121 65 - 199 mg/dL [facility] Comment:Diabetes: >=200 mg/d L plus symptoms Blood Urea Nitrogen 18 8 - 18 mg/dL [facility] Creatinine 0.72 0.70 - 1.20 mg/dL [facility] Sodium 138 135 - 145 mmol/L [facility] [...] questions. Chloride 101 98 - 107 mmol/L [facility] Carbon Dioxide 26 22 - 31 mmol/L [facility] Anion Gap 11 5 - 15 mmol/L [facility] Calcium 8.9 8.5 - 10.5 mg/dL [facility] Est Glomerular Filtration Rate 100 >=60 mL/min/1. 73 m?? [facility] [...] Lab Fior Little MD CHEMISTRY ORDERABLE S [facility] [place] [address] * EKG 12 Lead (07/01/2021 9:59 AM EDT) Ventricular rate 75 BPM MUSE SYSTEM Atrial Rate 75 BPM MUSE SYSTEM P-R Interval 180 ms MUSE SYSTEM QRS Duration 70 ms MUSE SYSTEM Q-T Interval 420 ms MUSE SYSTEM QTC Calculated (Bezet) 469 ms MUSE SYSTEM Calculated P [place] 9 degrees MUSE SYSTEM Calculated R [place] -5 degrees MUSE SYSTEM Calculated T [place] 18 degrees MUSE SYSTEM INTERPRETATION Normal sinus [...] PCR (07/01/2021 9:59 AM EDT) SARS-CoV-2 RNA (Rapid) Not Detected Not Detected [facility] Comment: This result should be [...] using the Simplexa COVID-19 Direct Assay by [employer] as authorized by the FDA issued Emergency [...] Department of Pathology and Laboratory Medicine at [facility], certified under the Clinical Laboratory Improvement Amendments [...] fact sheets at the following FDA website: https://www.fda.gov/medical-devices/cbaxoerhtne-cjjuoiq-1938-goqvi-21-wgxozbjms- use-a pwxzrpqeoxgqp-alvychc-culgeed/eivwg-qswfsufzhxz-otud SARS-CoV-2 Source GUIDE Swab MA RY [facility] Nasopharyngeal Swab 07/01/20 9:59 AM EDT 07/01/2021 10:52 AM EDT Comment:Symptoms->COVID-19 S uspected Narrative Resulting Agency Comment Spec In Lab Fior Little MD MICROBIOLOGY - [facility] ORDERABLES Performing Organization Address City/State/[facility] Co de Phone Number [facility] [place] [address] documented in this encounter Visit Diagnoses Diagnosis SOB (shortness of breath) Shortness of breath documented in this encounter Additional Health Concerns Infection Onset Date Last Indicated Resolved Time Rule Out COVID-19 07/01/2021 07/01/2021 07/01/2021 12:54 PM EDT documented as of this encounter Care Teams Engineering Project Designer Relationship Specialty Start Date End Date Edie Ellis MD [address] [place] [address] PCP - General 10/15/10 documented as of this encounter
--- OUTSIDE RECORDS SUMMARY | 2024-07-05 19:49 | XMS_ITS | Encounter Summary ---
Author [place] [address] Care Team Providers Care Keymodule Assembly Supervisor Name Role Phone Edie Ellis MD Primary Care Provider [phone] Encounter Details Date Type Department Care Team (Late st Contact Info) Description 10/22/2021 [place] [address] Edie Kaba Social History Tobacco [...] AM EDT Hospital Encounter Non[place] [address] Arrived documented as of this encounter Visit Diagnoses Not on filedocumented in this encounter Care Teams Keymodule Assembly Supervisor Relationship Specialty Start Date End Date Edie Ellis MD [address] [place], [place] [address] PCP - General 10/15/10 documented as of this encounter
--- OUTSIDE RECORDS SUMMARY | 2024-07-05 19:49 | XMS_ITS | Encounter Summary ---
Author Organization [facility] [place] [address] Care Team Providers Care Diesel Pile Hammer Operator Name Role Phone Edie Ellis MD Primary Care Provider [phone] Reason for Visit * Reason Onset Date Comments Medication Refill 07/22/2021 Farxiga, insur ance requesting 90 day supply Encounter Details Date Type Department Care Team (Late st Contact Info) Description 07/22/2021 Refill Cardiology at [address] [address] Andreina David, BRIMMING MACHINE OPERATOR [facility] [place] [address] Medication Refill (Farxiga, insurance requesting 90 day [...] EDT Hospital Encounter Non-Invasive Cardiology [place] [address] Arrived documented as of this encounter Visit Diagnoses Diagnosis Type 2 diabetes mellitus without complication, unspecified whether assisted insulin use documented in this encounter Care Teams Diesel Pile Hammer Operator Relationship Specialty Start Date End Date Edie Ellis MD [address] [place] [address] PCP - General 10/15/10 documented as of this encounter
--- OUTSIDE RECORDS SUMMARY | 2024-07-05 19:50 | XMS_ITS | Clinical Summary ---
Author Organization [facility] Address [address] [place] [address] Care Team Providers Care Adult Parole Officer Name Role Phone Edie Ellis MD Primary Care Provider [phone] Social History Tobacco Use Types Packs/Day Years [...] COVID-19 Vaccine ( season) 2023 Care Teams Adult Parole Officer Relationship Specialty Start Date End Date Edie Ellis MD [address] [place] [id number] PCP - General 03/21/19
--- OUTSIDE RECORDS SUMMARY | 2024-07-05 19:50 | XMS_ITS | Encounter Summary ---
Author Organization [facility] Address [address] [place] [address] Care Team Providers Care Circuit Rider Name Role Phone Edie Ellis MD Primary Care Provider [phone] Encounter Details Date Type Department Care Team (Late st Contact Info) Description 05/18/2022 Lab Requisition [facility] Pathology & Laboratory Medicine - [facility] [address] [place] [address] Outr Resulting Lab, Provider Social History Tobacco [...] on filedocumented in this encounter Care Teams Circuit Rider Relationship Specialty Start Date End Date Edie Ellis MD [address] [place] [phone] PCP - General 03/21/19 documented as of this encounter
--- OUTSIDE RECORDS SUMMARY | 2024-07-05 19:50 | XMS_ITS | Encounter Summary ---
Author Organization [facility] Address [facility] [place] [address] Care Team Providers Care Foam Caster Name Role Phone Edie Ellis MD Primary Care Provider [phone] Reason for Visit * Reason Comments Backache Pain In Limb Encounter Details Date Type Department Care Team (Late st Contact Info) Description 03/28/2011 10:45 AM EDT Office [place] [address] Deysi Sterling MD [facility] [place] [address] Lumbar radiculopathy (Primary Dx) Discharge Disposition: Home [...] diabetes mellitus. Social History: She lives in [place], [place] with her and 3 children. She [...] AM EDT Hospital Encounter [place] [address] Arrived documented as of this encounter Visit Diagnoses Diagnosis Lumbar radiculopathy- Primary Thoracic or lumbosacral neuritis or radiculitis, unspecified documented in this encounter Care Teams Foam Caster Relationship Specialty Start Date End Date Edie Ellis MD [address] [place] [address] PCP - General 10/15/10 documented as of this encounter
--- OUTSIDE RECORDS SUMMARY | 2024-07-05 19:50 | XMS_ITS | Encounter Summary ---
[place] [address] Care Team Providers Care Mid Level Project Manager Name Role Phone Edie Ellis MD Primary Care Provider Encounter Details Date Type Department Care Team (Latest Contact Info) Description 03/05/2017 - 03/05/2017 11:59 PM EDT Hospital Encounter [place] [address] Edie Ellis MD [facility] [address] [place], [place] [id number] Pain Discharge Disposition: Home Social History Tobacco [...] AM EDT Hospital Encounter Non-Invasive [place] [address] Arrived documented as of this encounter Procedures Procedure Name Priority Date/Time Associated Diagnosis Comments FILM LIBRARY STORAGE ONLY CT ABDOMEN AND PELVIS Routine 03/05/2017 12:00 AM EDT Pain documented in this encounter Results * Film Library- Storage Only CT Abdomen & Pelvis (03/05/2017 12:00 AM EDT) Narrative [facility] - 03/18/2017 2:28 PM EDT This exam is for storage only and is auto-finalizing. Edie Ellis MD IMG FILM LIBRARY ORD ERABLES [place], [place] documented in this encounter Visit Diagnoses Diagnosis Pain Generalized pain documented in this encounter Care Teams Mid Level Project Manager Relationship Specialty Start Date End Date Edie Ellis MD [facility] [address] [place] [address] PCP - General 10/15/10 documented as of this encounter
--- OUTSIDE RECORDS SUMMARY | 2024-07-05 19:50 | XMS_ITS | Encounter Summary ---
Author Organization [facility] Address [address] [place] [address] Care Team Providers Care Vertical Boring Mill Operator Name Role Phone Edie Ellis MD Primary Care Provider [phone] Encounter Details Date Type Department Care Team ([facility] st Contact Info) Description 07/09/2022 Lab Requisition [facility] Pathology & Laboratory Medicine - [facility] [address] [place], [place] [address] Outr Resulting Lab, Provider Social History Tobacco [...] Name Priority Date/Time Associated Diagnosis Comments URINE [id number] NE RATIO (ACR) Routine 07/09/2022 8:55 EDT documented in this encounter Results * URINE [id number] RATIO (ACR) (07/09/2022 8:55 EDT) Albumin, Urine <0.6 See Note mg/dL 07/09/2022 22:49 EDT [facility] Comment: NOTE: Reference range not established Creatinine, Urine 105.0 See Note mg/dL 07/09/2022 22:49 EDT [facility] Comment: NOTE: Reference range not established Lab Urine Albumin to Creatinine Ratio 07/09/2022 22:49 EDT [facility] Comment: Unable to calculate due to albumin result <0.6. Urine Albumin/Creatinine Ratio: Normal: <30 ug/mg Creatinine Moderately increased albuminuria: 30-300 ug/mg Creatinine Aliisa increased albuminuria: >300 ug/mg Creatinine Urine URINE SPECIMEN COLLECTION, CLEAN CATCH / Unknown 07/09/2022 8:55 EDT 07/09/2022 21:18 EDT Provider Outr Resulting Lab CHEMISTRY & BLOOD GAS ORDERABLES [facility] [address] [place] [address] documented in this encounter Visit Diagnoses Not on filedocumented in this encounter Care Teams Vertical Boring Mill Operator Relationship Specialty Start Date End Date Edie Ellis MD [address] [place] [phone] PCP - General 03/21/19 documented as of this encounter
--- OUTSIDE RECORDS SUMMARY | 2024-07-05 19:50 | XMS_ITS | Encounter Summary ---
Author Organization [facility] Address [facility] [place] [address] Care Team Providers Care Test Fixture Assembler Name Role Phone Edie Ellis MD Primary Care Provider [phone] Encounter Details Date Type Department Care Team (Latest Contact Info) Description 06/03/2012 9:45 AM EDT - 06/03/2012 5:26 PM EDT Hospital En[place] [address] Carine Gill MD [facility] [place] [address] Discharge Disposition: Home Social History Tobacco Use [...] to call your physician or the hospital custom feed mill operator if you have any questions, and they will be happy to assist you. [facility] Anesthesia Department [address] [place] [address] * Patient Instructions* Heaven Mariano MD - [...] until we see you in clinic. Call [phone] with any questions. documented in this encounter [...] hours as needed. 04/29/2014 Lancets Misc by [facility]Non-Drug; Combo Route) route daily. 06/17/2021 Miscellaneous Medical Supply [facility] 1 strip by [facility]Non-Drug; Combo Route) route daily. 06/17/2021 clonAZEpam (KLONOPIN) [...] Operative Note Patient Name: Jammie Gottlieb : [id number] MR#: [id number] Case Date: 06/03/2012 Surgeon: Surgeon(s) and Role: [...] Mariano MD - 06/03/2012 12:00 AM EDT [facility] Operative Note Patient Name: Jammie Gottlieb : [id number] MR#: [id number] Case Date: 06/03/2012 Surgeon: Surgeon(s) and Role: [...] AM EDT Hospital Encounter Non[place] [address] Arrived Pending Results Name Type Priority Associated [...] MD) documented in this encounter Care Teams Test Fixture Assembler Relationship Specialty Start Date End Date Edie Ellis MD [address] [place] [address] PCP - General 10/15/10 documented as of this encounter
--- OUTSIDE RECORDS SUMMARY | 2024-07-05 19:50 | XMS_ITS | Encounter Summary ---
Author Organization [facility] Address [address] [place] [address] Care Team Providers Care Minilab Operator Name Role Phone Edie Ellis MD Primary Care Provider [phone] Encounter Details Date Type Department Care Team (Late st Contact Info) Description 05/21/2020 Lab Requisition [facility] Pathology & Laboratory Medicine - [facility] [address] [place] [address] Oscar Keen MD [address] [place] [address] Excessive and frequent menstruation with regular cycle; [...] - No specific pathologic features. 05/27/2020 8:42 [facility] at 0842 Attestation There was significant resident/fellow involvement in the diagnostic evaluation of this case. By the signature below, the attending physician certifies that they have personally conducted a gross and/or microscopic examination of the described specimens and rendered or confirmed the above diagnosis. 05/27/2020 8:42 [facility] at 0842 Clinical History Menorrhagia, dysmenorrhea, history of endometrial ablation 05/27/2020 8:42 [facility] Gross Description A. Received [...] fimbriated ends are not definitively identified bilaterally. Knotter Hand sections are submitted as follows: BLOCK RUSSELL A1- sales representative graphic art right ovary A2- sales representative graphic art right fallopian tube including sections from each end A3- sales representative graphic art left ovary to include cystic spaces A4- sales representative graphic art left fallopian tube including sections from each end A5- anterior cervix A6-A7- sales representative graphic art full thickness anterior endomyometrium A8- anterior lower uterine segment A9- anterior myometrial/serosa l cyst A10- posterior cervix A11-A12- full-thickness posterior endomyometrium A13-14 posterior lower uterine segment Emmanuel Arnold, 05/22/2020 14:25 05/27/2020 8:42 EDT [facility] Resident/Sukhjinder w: Emmanuel Arnold, 05/27/2020 8:42 EDT [facility] Scanned Images 05/27/2020 8:42 EDT [facility] Tissue SPECIMEN FROM UTERUS / Unknown 05/18/2020 14:35 EDT 05/21/2020 17:54 EDT Oscar Keen MD PATHOLOGY ORDERABLES [facility] [address] [place] [address] documented in this encounter Visit Diagnoses Diagnosis Excessive and frequent menstruation with regular cycle Excessive or frequent menstruation Other specified postprocedural states documented in this encounter Care Teams Minilab Operator Relationship Specialty Start Date End Date Edie Ellis MD [address] [place] [phone] PCP - General 03/21/19 documented as of this encounter
--- OUTSIDE RECORDS SUMMARY | 2024-07-05 19:50 | XMS_ITS | Encounter Summary ---
Author Organization [facility] [place] [address] Care Team Providers Care Spindle Maker Name Role Phone Edie Ellis MD Primary Care Provider [phone] Encounter Details Date Type Department Care Team (Late st Contact Info) Description 03/26/2011 Abstract [place] [phone] Kelby Gill MD [facility] [place] [address] Social History Tobacco Use Types Packs/Day Years [...] AM EDT Hospital Encounter [place] [address] Arrived documented as of this encounter Visit Diagnoses Not on filedocumented in this encounter Care Teams Spindle Maker Relationship Specialty Start Date End Date Edie Ellis MD [facility] [address] [place], [place] [phone] PCP - General 10/15/10 documented as of this encounter
--- OUTSIDE RECORDS SUMMARY | 2024-07-05 19:50 | XMS_ITS | Encounter Summary ---
[place] [address] Care Team Providers Care Convention Planner Name Role Phone Edie Ellis MD Primary Care Provider [phone] Reason for Visit * Reason Comments Pre Procedure Call Encounter Details Date Type Department Care Team (Late st Contact Info) Description 05/31/2012 Telephone [place] [phone] Madelyn Campa, RN Pre Procedure Call Social [...] Pre-Operative Information Phone Note Patient: Jammie Gottlieb [id number] Call placed to Jammie Gottlieb with information [...] any further questions or concerns. Madelyn Campa STRATEGIC PARTNERSHIP MANAGER documented in this encounter Plan of Treatment Upcoming Encounters Date Type Department Care Team (Late st Contact Info) Description 07/09/2024 10:00 AM EDT Hospital Encounter Non-[place] [phone] Arrived documented as of this encounter Visit Diagnoses Not on filedocumented in this encounter Care Teams Convention Planner Relationship Specialty Start Date End Date Edie Ellis MD [address] [place] [address] PCP - General 10/15/10 documented as of this encounter
--- OUTSIDE RECORDS SUMMARY | 2024-07-05 19:50 | XMS_ITS | Encounter Summary ---
[place] [address] Care Team Providers Care Maintenance Of Way Superintendent Name Role Phone Edie Ellis MD Primary Care Provider [phone] Reason for Visit * Reason Onset Date Comments Back Pain 05/29/2011 s/p LESI 05/19/11 Encounter Details Date Type Department Care Team (Late st Contact Info) Description 05/29/2011 [place]phone [place] [address] Tesha Wong RN Back Pain (s/p LESI [...] Center Post-Procedure Phone Note Patient: Jammie Gottlieb [id number] Post-procedure phone call from patient to report [...] AM EDT Hospital Encounter [place] [phone] Arrived documented as of this encounter Visit Diagnoses Not on filedocumented in this encounter Care Teams Maintenance Of Way Superintendent Relationship Specialty Start Date End Date Edie Ellis MD [address] [place] [address] PCP - General 10/15/10 documented as of this encounter
--- OUTSIDE RECORDS SUMMARY | 2024-07-05 19:50 | XMS_ITS | Encounter Summary ---
Author Organization [facility] [place] [address] Care Team Providers Care Apparel Manager Name Role Phone Edie Ellis MD Primary Care Provider [phone] Encounter Details Date Type Department Care Team (Late st Contact Info) Description 05/19/2011 Orders [place] [phone] Kelby Gill MD [facility] [place] [address] Social History Tobacco Use Types Packs/Day Years [...] AM EDT Hospital Encounter Non-Invasive [place] [phone] Arrived documented as of this encounter Procedures [...] [facility] FILM LIBRARY ORDERABLES [facility] [address] [facility] [place] [address] documented in this encounter Visit Diagnoses Not on filedocumented in this encounter Care Teams Apparel Manager Relationship Specialty Start Date End Date Edie Ellis MD [address] [place] [address] PCP - General 10/15/10 documented as of this encounter
--- OUTSIDE RECORDS SUMMARY | 2024-07-05 19:50 | XMS_ITS | Encounter Summary ---
Author Organization [facility] Address [facility] [place] [address] Care Team Providers Care Elementary School Tutor Name Role Phone Edie Ellis MD Primary Care Provider [phone] Encounter Details Date Type Department Care Team (Late st Contact Info) Description 06/03/2012 10:58 AM EDT - 06/03/2012 12:26 PM EDT Surgery [place] [address] Carine Gill MD [facility] [place] [address] PERC IMPLANTATION NEUROSTIMULATOR ELECTRODE ARRAY, EPIDURAL (WRVU [...] to call your physician or the hospital button attaching machine operator if you have any questions, and they will be happy to assist you. [facility] Anesthesia Department [address] [place] [address] * Patient Instructions* Heaven Mariano MD - [...] until we see you in clinic. Call [phone] with any questions. documented in this encounter [...] hours as needed. 04/29/2014 Lancets Misc by [facility]Non-Drug; Combo Route) route daily. 06/17/2021 Miscellaneous Medical Supply [facility] 1 strip by [facility]Non-Drug; Combo Route) route daily. 06/17/2021 clonAZEpam (KLONOPIN) [...] Operative Note Patient Name: Jammie Gottlieb : [id number] MR#: [id number] Case Date: 06/03/2012 Surgeon: Surgeon(s) and Role: [...] Mariano MD - 06/03/2012 12:00 AM EDT [facility] Operative Note Patient Name: Jammie Gottlieb : [id number] MR#: [id number] Case Date: 06/03/2012 Surgeon: Surgeon(s) and Role: [...] AM EDT Hospital Encounter Non-[place]vasive [place] [phone] Arrived Pending Results Name Type Priority Associated [...] MD) documented in this encounter Care Teams Elementary School Tutor Relationship Specialty Start Date End Date Edie Ellis MD [facility] [address] [facility] [address] [place] [address] PCP - General 10/15/10 documented as of this encounter
--- OUTSIDE RECORDS SUMMARY | 2024-07-05 19:50 | XMS_ITS | Encounter Summary ---
Author Organization [facility] Address [address] [place] [address] Care Team Providers Care Fabric Designer Name Role Phone Edie Ellis MD Primary Care Provider [phone] Encounter Details Date Type Department Care Team ([facility] st Contact Info) Description 03/22/2023 Lab Requisition [facility] Pathology & Laboratory Medicine - [facility] [address] [place], [place] [address] Outr Resulting Lab, Provider Social History Tobacco [...] gonorrhoeae Result Negative Negative 03/23/2023 12:55 EDT [facility] Chlamydia trachomatis Result Negative Negative 03/23/2023 12:55 EDT [facility] Swab ENTIRE VAGINA / Unknown 03/21/2023 12:27 EDT 03/22/2023 17:27 EDT Provider Outr Resulting Lab MICROBIOLOGY - GENERAL ORDERABLES [facility] [address] [place] [address] documented in this encounter Visit Diagnoses Not on filedocumented in this encounter Care Teams Fabric Designer Relationship Specialty Start Date End Date Edie Ellis MD [address] [place] [phone] PCP - General 03/21/19 documented as of this encounter
--- OUTSIDE RECORDS SUMMARY | 2024-07-05 19:50 | XMS_ITS | Encounter Summary ---
Author Organization [facility] Address [facility] [place] [address] Care Team Providers Care Ground Control Approach Technician Name Role Phone Edie Ellis MD Primary Care Provider [phone] Encounter Details Date Type Department Care Team (Late st Contact Info) Description 05/19/2011 9:30 AM EDT - 05/19/2011 9:59 AM EDT Hospital Encounter XRay at [address] [place] [address] Social History Tobacco Use Types Packs/Day Years [...] AM EDT Hospital Encounter Non[place] [phone] Arrived documented as of this encounter Visit Diagnoses Not on filedocumented in this encounter Care Teams Ground Control Approach Technician Relationship Specialty Start Date End Date Edie Ellis MD [facility] [address] [place] [address] PCP - General 10/15/10 documented as of this encounter
--- OUTSIDE RECORDS SUMMARY | 2024-07-05 19:50 | XMS_ITS | Encounter Summary ---
Author Organization [facility] [place] [address] Care Team Providers Care Circulating Process Inspector Name Role Phone Edie Ellis MD Primary Care Provider [phone] Encounter Details Date Type Department Care Team (Late st Contact Info) Description 09/07/2013 9:00 AM EDT - 09/07/2013 10:00 AM [place] [address] Suhas Tavares MD [facility] [place] [address] CARDIAC CATHETERIZATION Social History Tobacco Use Types [...] by your doctor, do not take any ycuz-ygj-qjhrjwh medicines or herbal preparations without first discussing this with your doctor or pharmacist. There is the possibility of side effect and interactions when these are combined. Follow up Care Who to Call with Questions or Problems If there are any questions or problems that you think might be related to your cardiac cath or angioplasty, contact the manager administrative carton packaging machine operator by calling [facility] at . documented in this encounter [...] hours as needed. 04/29/2014 Lancets Misc by [facility]Non-Drug; Combo Route) route daily. 06/17/2021 Miscellaneous Medical Supply [facility] 1 strip by [facility].(Non-Drug; Combo Route) route [...] the Treatment of Subjects with de daniel Minto Coronary Artery Lesions PI: Jonathan Silva MD Pager #:[phone] Research Coordinators: Hemant Muniz, BS, BA, OFFICE SUPPORT ASSISTANT Pager #:[phone] Santos Quach, CHARLY Pager #: [phone] Purpose: The pivotal trial to support the [place] pre-market approval (PMA) of Absorb BVS. ABSORB III will evaluate the safety and effectiveness of the Absorb BVS System compared to the XIENCE in the treatment of subjects, including those with diabetes mellitus, with ischemic heart disease caused by up to two denovo little river coronary artery lesions in separate epicardial [...] Target lesion(s) must be located in a little river coronary artery with a visually estimated or quantitatively assessed %DS of ? 50% and < 100% with a TONYA flow of ? 1 and one of the following: stenosis ? 70%, an abnormal functional test (e.g., fractional flow reserve, stress test), unstable anginaor post-infarct angina. a. Lesion(s) must be located in a little river coronary artery with RVD by visual estimation of ? 2.50 mmand ? 3.75 mm. b. Lesion(s) must be located in a little river coronary artery with length by visual [...] the Treatment of Subjects with de daniel Minto Coronary Artery Lesions PI: Jonathan Silva MD Pager #:[phone] Research Coordinators: Hemant Muniz, BS, BA, OFFICE SUPPORT ASSISTANT Pager #:[phone] Santos Quach RN Pager #: [phone] Purpose: The pivotal trial to support the [place] pre-market approval (PMA) of Absorb BVS. ABSORB III will evaluate the safety and effectiveness of the Absorb BVS System compared to the XIENCE in the treatment of subjects, including those with diabetes mellitus, with ischemic heart disease caused by up to two denovo little river coronary artery lesions in separate epicardial [...] proceed to cath. Luke Luevano MD Pager [phone] Policy Writer documented in this encounter Procedure Notes * Provider, Scanning - 09/07/2013 7:22 PM EDTAssociated Order(s): SCAN DOC: CARDIAC CATH documented in this encounter Miscellaneous Notes * Miscellaneous - Provider, Scanning - 09/07/2013 7:22 PM EDT * Miscellaneous - Provider, Scanning - 09/07/2013 3:29 PM EDT * Discharge Summary - Suhas Tavares MD - 09/07/2013 11:44 AM EDT [facility] SAME DAY DISCHARGE SUMMARY Jammie Gottlieb 09/07/2013 Primary Care Provider: EDIE ELLIS MD Referring Ground Support Equipment Mechanic: Taurus Menjivar MD Procedures: Left heart catheterization, [...] AM EDT Hospital Encounter [place] [address] Arrived documented as of this encounter Procedures [...] (Bezet) 469 ms MUSE SYSTEM Calculated P [place] 14 degrees MUSE SYSTEM Calculated R [place] 7 degrees MUSE SYSTEM Calculated T [place] 13 degrees MUSE SYSTEM INTERPRETATION Normal sinus rhythm Normal ECG When compared with ECG of 19-DEC-2009 12:47, No significant change was found Confirmed by Rainer Nova MD ([id number]) on 09/09/2013 8:09:14 AM MUSE SYSTEM 09/07/2013 9:28 AM EDT 09/09/2013 8:09 AM EDT Jonathan Tapai MD ECG ORDERABLES MUSE SYSTEM documented in this encounter Visit Diagnoses Diagnosis Cardiomyopathy Other primary cardiomyopathies CAD (coronary artery disease) Coronary atherosclerosis of unspecified type of vessel, little river or graft Cardiomyopathy Other primary cardiomyopathies documented [...] RN) documented in this encounter Care Teams Circulating Process Inspector Relationship Specialty Start Date End Date Edie Ellis MD [address] [place] [address] PCP - General 10/15/10 documented as of this encounter
--- OUTSIDE RECORDS SUMMARY | 2024-07-05 19:50 | XMS_ITS | Encounter Summary ---
Author Organization [facility] Address [address] [place] [address] Care Team Providers Care Receiving Dock Checker Name Role Phone Edie Ellis MD Primary Care Provider [phone] Encounter Details Date Type Department Care Team (Late st Contact Info) Description 05/12/2022 Lab Requisition [facility] Pathology & Laboratory Medicine - [facility] [address] [place] [address] Ioana Khan MD [address] [place] [address],[place] [address] Encounter for other general examination Social History [...] management options, if applicable. 05/15/2022 8:54 EDT [facility] Final Diagnosis A. URINARY BLADDER, POSTERIOR WALL, BIOPSY: - Urothelial tissue with sub-epithelial capillary congestion and surface reactive epithelial changes. See comment. - Muscularis propria is present. 05/15/2022 8:54 [facility] Diagnosis Comment The biopsies consists of urothelial tissue with sub-epithelial capillary congestion. The surface urothelium is partially denuded, however, where intact shows mild reactive changes. There is no evidence of carcinoma or high grade dysplasia in the biopsy material. Communications Manager slides of this case were reviewed at the intradepartmental consultation conference. Deeper sections have been examined of block A1 and A2. 05/15/2022 8:54 [facility] Attestation There was significant resident/fellow involvement in the diagnostic evaluation of this case. By the signature below, the attending physician certifies that they have personally conducted a gross and/or microscopic examination of the described specimens and rendered or confirmed the above diagnosis. 05/15/2022 8:54 [facility] at 0854 Clinical History Erythematous patch posterior bladder wall, smoker 05/15/2022 8:54 [facility] Gross Description A. Received in [...] A2. CAESAR OSEI 05/12/2022 13:53 05/15/2022 8:54 [facility] Resident/Fell ow: Andressa Orlando DO 05/15/2022 8:54 T [facility] Performing Lab [facility] 05/15/2022 8:54 [facility] Scanned Images 05/15/2022 8:54 [facility] Tissue URINARY BLADDER BIOPSY SPECIMEN / Unknown 05/09/2022 12:47 EDT 05/12/2022 8:16 EDT Ioana Khan MD PATHOLOGY ORDERABLES [facility] [address] [place] [address] documented in this encounter Visit Diagnoses Diagnosis Encounter for other general examination documented in this encounter Care Teams Receiving Dock Checker Relationship Specialty Start Date End Date Edie Ellis MD [address] [place] [phone] PCP - General 03/21/19 documented as of this encounter
--- OUTSIDE RECORDS SUMMARY | 2024-07-05 19:50 | XMS_ITS | Encounter Summary ---
Author Organization Formerly [facility], [facility] Address [facility] [place] [address] Care Team Providers Care Relief Manager Name Role Phone Edie Ellis MD Primary Care Provider [phone] Encounter Details Date Type Department Care Team (Latest Contact Info) Description 09/07/2013 8:10 AM EDT - 09/07/2013 3:32 PM EDT Hospital Encounter [place] [address] Suhas Tavares MD [facility] [place] [address] Cardiomyopathy; CAD (coronary artery disease) Discharge Disposition: [...] by your doctor, do not take any qnme-iow-vcsvygx medicines or herbal preparations without first discussing this with your doctor or pharmacist. There is the possibility of side effect and interactions when these are combined. Follow up Care Who to Call with Questions or Problems If there are any questions or problems that you think might be related to your cardiac cath or angioplasty, contact the health information manager client relation specialist by calling [facility] at . documented in this encounter Medications [...] hours as needed. 04/29/2014 Lancets Misc by [facility].(Non-Drug; Combo Route) route daily. 06/17/2021 Miscellaneous Medical Supply Mis 1 strip by [facility].(Non-Drug; Combo Route) route daily. 06/17/2021 clonAZEpam (KLONOPIN) [...] the Treatment of Subjects with de daniel Kasaan Coronary Artery Lesions PI: Jonathan Silva MD Pager #:[phone] Research Coordinators: Hemant Muniz, BS, BA, SPECTRAL SCIENTIST Pager #:[phone] Santos Quach RN Pager #: [phone] Purpose: The pivotal trial to support the [place] pre-market approval (PMA) of Absorb BVS. ABSORB III will evaluate the safety and effectiveness of the Absorb BVS System compared to the XIENCE in the treatment of subjects, including those with diabetes mellitus, with ischemic heart disease caused by up to two denovo deering coronary artery lesions in separate epicardial vessels. [...] Target lesion(s) must be located in a deering coronary artery with a visually estimated or quantitatively assessed %DS of ? 50% and < 100% with a TONYA flow of ? 1 and one of the following: stenosis ? 70%, an abnormal functional test (e.g., fractional flow reserve, stress test), unstable anginaor post-infarct angina. a. Lesion(s) must be located in a deering coronary artery with RVD by visual estimation of ? 2.50 mmand ? 3.75 mm. b. Lesion(s) must be located in a deering coronary artery with length by visual estimation [...] the Treatment of Subjects with de daniel Kasaan Coronary Artery Lesions PI: Jonathan Silva MD Pager #:[phone] Research Coordinators: Hemant Muniz, BS, BA, SPECTRAL SCIENTIST Pager #:[phone] Santos Quach RN Pager #: [phone] Purpose: The pivotal trial to support the [place] pre-market approval (PMA) of Absorb BVS. ABSORB III will evaluate the safety and effectiveness of the Absorb BVS System compared to the XIENCE in the treatment of subjects, including those with diabetes mellitus, with ischemic heart disease caused by up to two denovo deering coronary artery lesions in separate epicardial vessels. [...] proceed to cath. Luke Luevano MD Pager [phone] Record Tester documented in this encounter Procedure Notes * Provider, Scanning - 09/07/2013 7:22 PM EDTAssociated Order(s): SCAN DOC: CARDIAC CATH documented in this encounter Miscellaneous Notes * Miscellaneous - Provider, Scanning - 09/07/2013 7:22 PM EDT * Miscellaneous - Provider, Scanning - 09/07/2013 3:29 PM EDT * Discharge Summary - Suhas Tavares MD - 09/07/2013 11:44 AM EDT [facility] SAME DAY DISCHARGE SUMMARY Jammie Gottlieb 09/07/2013 Primary Care Provider: EDIE ELLIS MD Referring Energy Infrastructure Engineer: Taurus Menjivar MD Procedures: Left heart catheterization, [...] AM EDT Hospital Encounter [place] [address] Arrived documented as of this encounter Procedures [...] (Bezet) 469 ms MUSE SYSTEM Calculated P Pine Level 14 degrees MUSE SYSTEM Calculated R Pine Level 7 degrees MUSE SYSTEM Calculated T Pine Level 13 degrees MUSE SYSTEM INTERPRETATION Normal sinus [...] Coronary atherosclerosis of unspecified type of vessel, deering or graft documented in this encounter Administered [...] RN) documented in this encounter Care Teams Relief Manager Relationship Specialty Start Date End Date Edie Ellis MD [facility] [address] [place] [address] PCP - General 10/15/10 documented as of this encounter
--- OUTSIDE RECORDS SUMMARY | 2024-07-05 19:50 | XMS_ITS | Encounter Summary ---
Author Organization [facility] Address [facility] [address]enna [address] [place] [id number] Care Team Providers Care General Repairer Name Role Phone Edie Ellis MD Primary Care Provider [phone] Reason for Referral * Psychiatric (Routine) - Complete - Patient Seen (External Appt Consult Notes Rcv'd) Specialty Diagnoses / Procedures Referred By Geraldine olmedo Referred To Contact Psychiatry Diagnoses Thoracic or lumbosacral neuritis or radiculitis, unspecified Kelby Gill MD [facility] [place] [address] Jazmin Angulo, PhD [facility] [place] [address] Referral ID Status Reason Start Date Expiration Date Visits Requested Visits Authorized [id number] Complete - Patient Seen (External Appt Consult Notes Rcv'd) Consult, Test & Treat 12/12/2011 06/09/2012 1 1 Encounter Details Date Type Department Care Team (Late st Contact Info) Description 12/12/2011 Orders [place] [address] Kelby Gill MD [facility] [place] [address] Thoracic or lumbosacral neuritis or [...] AM EDT Hospital Encounter [place] [address] Arrived Scheduled Referrals Name Type Priority Associated Diagnoses Orde r Schedule REFERRAL TO PSYCHIATRY Outpatient Referral Routine Thoracic or lumbosacral neuritis or radiculitis, unspecified Ordered: 12/12/2011 documented as of this encounter Visit Diagnoses Diagnosis Thoracic or lumbosacral neuritis or radiculitis, unspecified- Primary documented in this encounter Care Teams General Repairer Relationship Specialty Start Date End Date Edie Ellis MD [address] [place] [address] PCP - General 10/15/10 documented as of this encounter
--- OUTSIDE RECORDS SUMMARY | 2024-07-05 19:50 | XMS_ITS | Encounter Summary ---
Author Organization [facility] Address [facility] [place] [address] Care Team Providers Care Manager Government Name Role Phone Edie Ellis MD Primary Care Provider [phone] Encounter Details Date Type Department Care Team (Late st Contact Info) Description 09/06/2013 Orders Only Cardiology at [address] [address] Kika David PA [facility] [place] [address] Cardiomyopathy (Primary Dx) Social History Tobacco Use [...] AM EDT Hospital Encounter [place] [address] Arrived documented as of this encounter Procedures [...] cardiomyopathies documented in this encounter Care Teams Manager Government Relationship Specialty Start Date End Date Edie Ellis MD [address] [place] [address] PCP - General 10/15/10 documented as of this encounter
--- OUTSIDE RECORDS SUMMARY | 2024-07-05 19:50 | XMS_ITS | Encounter Summary ---
Author Organization [facility] Address [address] [place] [address] Care Team Providers Care Comb Setter Name Role Phone Edie Ellis MD Primary Care Provider [phone] Encounter Details Date Type Department Care Team ([facility] Contact Info) Description 12/15/2019 Lab Requisition [facility] Pathology & Laboratory Medicine - [facility] [address] [place] [address] Unknown, Provider, Social History Tobacco Use Types [...] 21:31 EST) Hold Hold 12/15/2019 22:45 EST [facility] Blood VENOUS BLOOD / Unknown 12/15/2019 21:31 EST 12/15/2019 21:31 EST Provider Unknown LAB INFO SERVICE AND SUPPORT & PHONE RESULT [facility] [address] [place] [address] * LH (12/15/2019 9:54 EST) Luteinizing Hormone 2.3 See Note mIU/mL 12/16/2019 10:24 EST [facility] Comment: NOTE: Female Reference [...] BLOOD GA S ORDERABLES Performing Organization Address City/State/[facility] Co de Phone Number [facility] [address] [place] [address] * FSH (12/15/2019 9:54 EST) FSH 2.4 See Note mIU/mL 12/16/2019 10:24 EST [facility] Blood VENOUS BLOOD / Unknown 12/15/2019 9:54 EST 12/15/2019 21:30 EST Narrative [facility] - 12/16/2019 10:24 EST [...] Unknown CHEMISTRY & BLOOD GA S ORDERABLES [facility] [address] [place] [address] documented in this encounter Visit Diagnoses Not on filedocumented in this encounter Care Teams Comb Setter Relationship Specialty Start Date End Date Edie Ellis MD [address] [place] [phone] PCP - General 03/21/19 documented as of this encounter
--- OUTSIDE RECORDS SUMMARY | 2024-07-05 19:50 | XMS_ITS | Encounter Summary ---
Author Organization [facility] [place] [address] Care Team Providers Care Territory Sales Consultant Name Role Phone Edie Ellis MD Primary Care Provider [phone] Encounter Details Date Type Department Care Team (Late st Contact Info) Description 09/02/2013 Telephone Cardiology at [address] [phone] Zaina Adkins CMA Social History Tobacco Use [...] AM EDT Hospital Encounter Non-Invasive [place] [address] Arrived documented as of this encounter Visit Diagnoses Not on filedocumented in this encounter Care Teams Territory Sales Consultant Relationship Specialty Start Date End Date Edie Ellis MD [address] [place] [address] PCP - General 10/15/10 documented as of this encounter
--- OUTSIDE RECORDS SUMMARY | 2024-07-05 19:50 | XMS_ITS | Encounter Summary ---
[place] [address] Care Team Providers Care Knockdown Worker Name Role Phone Edie Ellis MD Primary Care Provider [phone] Reason for Visit * Reason Comments Back Pain Encounter Details Date Type Department Care Team (Late st Contact Info) Description 01/30/2012 Telephone [place] [address] Madelyn Campa, RN Back Pain Social History [...] RN - 01/30/2012 2:47 PM EST Ms. Gottlieb called in tears stating she is in excruciating pain and doesn't know what to do. She had an MRI at [facility] but doesn't think she could tolerate the [...] AM EDT Hospital Encounter Non-[place] [address] Arrived documented as of this encounter Visit Diagnoses Not on filedocumented in this encounter Care Teams Knockdown Worker Relationship Specialty Start Date End Date Edie Ellis MD [address] [facility] 1 [place] [address] PCP - General 10/15/10 documented as of this encounter
--- OUTSIDE RECORDS SUMMARY | 2024-07-05 19:50 | XMS_ITS | Encounter Summary ---
Author Organization [facility] Address [address] [place] [address] Care Team Providers Care Willow Machine Tender Name Role Phone Edie Ellis MD Primary Care Provider [phone] Encounter Details Date Type Department Care Team (Late st Contact Info) Description 11/27/2021 Lab Requisition [facility] Pathology & Laboratory Medicine - [facility] [address] [place], [place] [address] Outr Resulting Lab, Provider Social History Tobacco [...] Antibodies <2.5 <5.0 U/mL 11/28/2021 9:04 EST [facility] Blood VENOUS BLOOD / Unknown 11/27/2021 10:45 EST 11/27/2021 21:22 EST Provider Outr Resulting Lab IMMUNOLOGY A ND SEROLOGY ORDERABLES [facility] [address] [place] [address] documented in this encounter Visit Diagnoses Not on filedocumented in this encounter Care Teams Willow Machine Tender Relationship Specialty Start Date End Date Edie Ellis MD [address] [place] [phone] PCP - General 03/21/19 documented as of this encounter
--- OUTSIDE RECORDS SUMMARY | 2024-07-05 19:50 | XMS_ITS | Encounter Summary ---
Author Organization [facility] Address [facility] [place] [address] Care Team Providers Care Marine Photographer Name Role Phone Edie Ellis MD Primary Care Provider [phone] Reason for Visit * Reason Comments Sterilization Encounter Details Date Type Department Care Team (Late st Contact Info) Description 03/30/2014 2:30 PM EDT Office Visit Obstetrics [place] [address] Hola Valdez MD [facility] OBSTETRICS [place] [address] General counseling and advice on female contraception [...] 20 minutes of that were spent in [id number] discussion. documented in this encounter Plan of Treatment Upcoming Encounters Date Type Department Care Team (Brian st Contact Info) Description 07/09/2024 10:00 AM EDT Hospital Encounter Non-[place] [address] Arrived documented as of this encounter Visit Diagnoses Diagnosis General counseling and advice on female contraception- Primary Other general counseling and advice for contraceptive management documented in this encounter Care Teams Marine Photographer Relationship Specialty Start Date End Date Edie Ellis MD [facility] [address] [facility] [address] [place] [address] PCP - General 10/15/10 documented as of this encounter
--- OUTSIDE RECORDS SUMMARY | 2024-07-05 19:50 | XMS_ITS | Encounter Summary ---
Author Organization [facility] Address [address] [place] [address] Care Team Providers Care Hand Rug Cleaner Name Role Phone Edie Ellis MD Primary Care Provider [phone] Encounter Details Date Type Department Care Team (Late st Contact Info) Description 06/11/2020 Lab Requisition [facility] Pathology & Laboratory Medicine - [facility] [address] [place] [address] Oscar Keen MD [address] [place] [address] Infection following a procedure, organ and space [...] unspecified documented in this encounter Care Teams Hand Rug Cleaner Relationship Specialty Start Date End Date Edie Ellis MD [facility] [address] [phone] PCP - General 03/21/19 documented as of this encounter
--- OUTSIDE RECORDS SUMMARY | 2024-07-05 19:50 | XMS_ITS | Encounter Summary ---
Author Organization [facility] [place] [address] Care Team Providers Care Feather Mixer Name Role Phone Edie Ellis MD Primary Care Provider [phone] Reason for Visit * Reason Onset Date Comments Medication Refill 03/20/2015 Encounter Details Date Type Department Care Team (Late st Contact Info) Description 03/20/2015 Refill [place] [phone] Estrada Parikh MD [facility] [place] [address] Post laminectomy syndrome Social History Tobacco Use [...] AM EDT Hospital Encounter Non-Invasive [place] [address] Arrived documented as of this encounter Visit Diagnoses Diagnosis Post laminectomy syndrome Postlaminectomy syndrome, unspecified region documented in this encounter Care Teams Feather Mixer Relationship Specialty Start Date End Date Edie Ellis MD [address] [facility] 1 [place] [address] PCP - General 10/15/10 documented as of this encounter
--- OUTSIDE RECORDS SUMMARY | 2024-07-05 19:50 | XMS_ITS | Encounter Summary ---
Author Organization [facility] Address [address] [place] [address] Care Team Providers Care Crowd Controller Name Role Phone Edie Ellis MD Primary Care Provider [phone] Encounter Details Date Type Department Care Team ([facility] st Contact Info) Description 08/08/2021 Lab Requisition [facility] Pathology & Laboratory Medicine - [facility] [address] [place], [place] [address] Outr Resulting Lab, Provider Social History Tobacco [...] Outr Resulting Lab MICROBIOLOGY - GENERAL ORDERABLES [facility] [address] [place] [address] * COVID-19 TESTING (08/07/2021 20:10 EDT) COVID-19 rt-PCR Result Negative Negative 08/09/2021 12:04 EDT [facility] Comment: This test has [...] performed using the julieta SARS-CoV-2 assay ([employer] on the Julieta 6800 System Performing Lab Julieta 6800 [facility] Lab 08/09/2021 12:04 EDT [facility] Swab 08/07/2021 20:1 0 EDT 08/08/2021 16:02 EDT Provider Outr Resulting Lab MICROBIOLOGY - GENERAL ORDERABLES [facility] [address] [place] [address] documented in this encounter Visit Diagnoses Not on filedocumented in this encounter Care Teams Crowd Controller Relationship Specialty Start Date End Date Edie Ellis MD [address] [place] [phone] PCP - General 03/21/19 documented as of this encounter
--- OUTSIDE RECORDS SUMMARY | 2024-07-05 19:50 | XMS_ITS | Encounter Summary ---
Author Organization [facility] Address [address] [place] [address] Care Team Providers Care Video Recorder Mechanic Name Role Phone Edie Ellis MD Primary Care Provider [phone] Encounter Details Date Type Department Care Team ([facility] st Contact Info) Description 08/08/2021 Lab Requisition [facility] Pathology & Laboratory Medicine - [facility] [address] [place], [place] [id number] Outr Resulting Lab, Provider Social History Tobacco [...] Lyme Ab Negative Negative 08/09/2021 10:37 EDT [facility] Blood VENOUS BLOOD / Unknown 08/07/2021 16:48 EDT 08/08/2021 16:06 EDT Provider Outr Resulting Lab IMMUNOLOGY A ND SEROLOGY ORDERABLES [facility] [address] [place] [address] documented in this encounter Visit Diagnoses Not on filedocumented in this encounter Care Teams Video Recorder Mechanic Relationship Specialty Start Date End Date Edie Ellis MD [address] [place] [phone] PCP - General 03/21/19 documented as of this encounter
--- OUTSIDE RECORDS SUMMARY | 2024-07-05 19:50 | XMS_ITS | Encounter Summary ---
[place] [address] Care Team Providers Care Hearing Care Practitioner Name Role Phone Edie Ellis MD Primary Care Provider [phone] Reason for Referral * Diagnostic Test (Routine) - Closed Specialty Diagnoses / Procedures Referred By Contac t Referred To Contact Radiology Diagnoses Cardiomyopathy, unspecified type Procedures MRI Cardiac Morphology Function o Nikhil Huntley MD [address] [place] [address] [place] [address] [place] [address] Referral ID Status Reason Start Date Expiration Date V isits Requested Visits Authorized [id number] Closed Specialty Service Requested 04/04/2021 10/05/2022 1 1 Reason for Visit * Diagnostic Test (Routine) - Closed Specialty Diagnoses / Procedures Referred By Contac t Referred To Contact Radiology Diagnoses Cardiomyopathy, unspecified type Procedures MRI Cardiac Morphology Function eduardo Nikhil Huntley MD [address] [place] [address] [facility] [place] [address] [place] [address] Referral ID Status Reason Start Date Expiration Date V isits Requested Visits Authorized [id number] Closed Specialty Service Requested 04/04/2021 10/05/2022 1 1 Encounter Details Date Type Department Care Team (Latest Contact Info) Description 05/08/2021 8:47 AM EDT - 05/08/2021 11:59 PM EDT Hospital Encounter MRI at [facility] [place] [address] Nikhil Eid MD [address] [place] [address] [place] [address] Cardiomyopathy, unspecified type Discharge Disposition: Home Social [...] a day 03/12/2015 naloxone (Narcan) 4 mg/actuation [place], Non-Aerosol Once 03/10/2019 magnesium oxide (MAG-OX) 400 [...] by mouth daily. 06/17/2021 Lancets Misc by [facility].(Non-Drug; Combo Route) route daily. 06/17/2021 Miscellaneous Medical [...] AM EDT Hospital Encounter Non-[place] [address] Arrived documented as of this encounter Procedures [...] who have questions please contact the health child day care center worker that requested your imaging first. ? Narrative 05/08/2021 12:16 PM EDT EXAMINATION: MRI [...] also already seen on the prior outside [facility] 2017). QUANTITATIVE DATA: LEFT VENTRICLE: LV Mass: [...] patients who have questions please contactthe health child day care center worker that requested your imaging first. Nikhil Eid MD IMG MRI ORDERABLES documented [...] mLs documented in this encounter Care Teams Hearing Care Practitioner Relationship Specialty Start Date End Date Edie Ellis MD [address] [place] [address] PCP - General 10/15/10 documented as of this encounter
--- OUTSIDE RECORDS SUMMARY | 2024-07-05 19:50 | XMS_ITS | Encounter Summary ---
Author Organization [facility] [place] [address] Care Team Providers Care Metal Model Builder Name Role Phone Edie Ellis MD Primary Care Provider [phone] Encounter Details Date Type Department Care Team (Late st Contact Info) Description 01/30/2012 [place] [address] Jamie Dickinson MD [facility] [place] [address] Social History Tobacco Use Types Packs/Day Years [...] AM EDT Hospital Encounter Non-[place] [address] Arrived documented as of this encounter Visit Diagnoses Not on filedocumented in this encounter Care Teams Metal Model Builder Relationship Specialty Start Date End Date Edie Ellis MD [address] [place] [address] [address] [place] [address] PCP - General 10/15/10 documented as of this encounter
--- OUTSIDE RECORDS SUMMARY | 2024-07-05 19:50 | XMS_ITS | Encounter Summary ---
Author Organization [facility] [place] [address] Care Team Providers Care Boiler Control Technician Name Role Phone Edie Ellis MD Primary Care Provider [phone] Reason for Visit * Reason Comments Backache Encounter Details Date Type Department Care Team (Late st Contact Info) Description 12/08/2011 10:45 AM EST Follow-[place] [address] Kelby Gill MD [facility] [place] [address] Lumbar radiculopathy (Primary Dx) Discharge Disposition: Home [...] AM EDT Hospital Encounter Non-[place] [address] Arrived documented as of this encounter Visit Diagnoses Diagnosis Lumbar radiculopathy- Primary Thoracic or lumbosacral neuritis or radiculitis, unspecified documented in this encounter Care Teams Boiler Control Technician Relationship Specialty Start Date End Date Edie Ellis MD [address] [facility] 1 [place] [address] PCP - General 10/15/10 documented as of this encounter
--- OUTSIDE RECORDS SUMMARY | 2024-07-05 19:50 | XMS_ITS | Encounter Summary ---
[place] [address] Care Team Providers Care Software Release Manager Name Role Phone Edie Ellis MD Primary Care Provider [phone] Reason for Visit * Reason Comments Back Pain ongoing pain, not re lieved by [facility] Encounter Details Date Type Department Care Team (Late st Contact Info) Description 06/27/2011 Telephone [place] [phone] Tesha Wong RN Back Pain (ongoing pain, [...] questions were answered. She was transferred to [place] to schedule left LMBB's with Dr. Gill. Anticoagulants: No. Patient knows how to contact the Pain Management Center if any further questions or concerns occur. documented in this encounter Plan of Treatment Upcoming Encounters Date Type Department Care Team (Late st Contact Info) Description 07/09/2024 10:00 AM EDT Hospital Encounter Non-Invasive [place] [address] Arrived documented as of this encounter Visit Diagnoses Not on filedocumented in this encounter Care Teams Software Release Manager Relationship Specialty Start Date End Date Edie Ellis MD [address] [place] [address] PCP - General 10/15/10 documented as of this encounter
--- OUTSIDE RECORDS SUMMARY | 2024-07-05 19:50 | XMS_ITS | Encounter Summary ---
Author Organization [facility] [place] [address] Care Team Providers Care Cigar Packer And Picker Name Role Phone Edie Ellis MD Primary Care Provider [phone] Reason for Visit * Reason Comments Low Back Pain Back Pain Encounter Details Date Type Department Care Team (Late st Contact Info) Description 02/02/2012 8:20 AM EDT [place] [address] Jamie Dickinson MD [facility] [place] [place] [address] Back pain (Primary Dx) Discharge Disposition: Home [...] 10:24 AM EDT Copy: Kelby Gill M.D. [facility] Chief Complaint: Jammie Gottlieb is a 36-year-old woman, seen in referral from Kelby Gill M.D. for back and left leg pain. History of Present Illness: She underwent surgery in 2003 for left sciatica at [facility]. This was not a good experience for [...] back and tenderness with palpation of the [id number]. Imaging Studies: Review of her lumbar MRI [...] AM EDT Hospital Encounter Non[place] [address] Arrived documented as of this encounter Visit Diagnoses Diagnosis Back pain- Primary Backache, unspecified documented in this encounter Care Teams Cigar Packer And Picker Relationship Specialty Start Date End Date Edie Ellis MD [address] [place] [address] PCP - General 10/15/10 documented as of this encounter
--- OUTSIDE RECORDS SUMMARY | 2024-07-05 19:50 | XMS_ITS | Encounter Summary ---
[place] [address] Care Team Providers Care Restaurant Lead Name Role Phone Edie Ellis MD Primary Care Provider [phone] Reason for Visit * Reason Onset Date Comments Other 09/01/2013 PHONE CALL PRE C ATH Encounter Details Date Type Department Care Team (Late st Contact Info) Description 09/01/2013 Telephone Cardiology at [address] [phone] Rachel Arrieta Other (PHONE CALL PRE CATH) [...] AM EDT Hospital Encounter Non-[place] [address] Arrived documented as of this encounter Visit Diagnoses Not on filedocumented in this encounter Care Teams Restaurant Lead Relationship Specialty Start Date End Date Edie Ellis MD [facility] MORALES GRANADOS [facility] [address] [place] [address] PCP - General 10/15/10 documented as of this encounter
--- OUTSIDE RECORDS SUMMARY | 2024-07-05 19:50 | XMS_ITS | Encounter Summary ---
Author Organization [facility] Address [facility] [place] [address] Care Team Providers Care Media Planner / Buyer Name Role Phone Edie Ellis MD Primary Care Provider [phone] Encounter Details Date Type Department Care Team (Late st Contact Info) Description 06/03/2012 11:59 AM EDT Anesthesia Event [place] [address] Chika Suárez MD [facility] [place] [address] Car Kaiser, MILKING MACHINE TECHNICIAN [address] [place] [address] Anesthesia Record Procedure Summary Procedure Name Responsible [...] induction Plan discussed with medical student and MILKING MACHINE TECHNICIAN. documented in this encounter Miscellaneous Notes * Addendum Note - Chika Suárez MD - 06/21/2012 3:15 PM EDT Addendum created 06/21/121514 by Chika Suárez MD Modules edited:Anesthesia Review and Sign Navigator Section, Flowsheet VN, Inpatient Notes Flowsheet [id number] Procedural Verification * Addendum Note - Chika Suárze MD - 06/21/2012 3:15 PM EDT Addendum created 06/21/121514 by Chika Suárez MD Modules edited:Anesthesia Review and Sign Navigator Section, Flowsheet VN, Inpatient Notes Flowsheet [id number] Procedural Verification documented in this encounter Plan of Treatment Upcoming Encounters Date Type Department Care Team (Late st Contact Info) Description 07/09/2024 10:00 AM EDT Hospital Encounter Non-[place]vasive [place] [address] Arrived documented as of this encounter Visit Diagnoses Not on filedocumented in this encounter Care Teams Media Planner / Buyer Relationship Specialty Start Date End Date Edie Ellis MD [facility] [address] [place] [address] PCP - General 10/15/10 documented as of this encounter
--- OUTSIDE RECORDS SUMMARY | 2024-07-05 19:50 | XMS_ITS | Encounter Summary ---
Author Organization [facility] [place] [address] Care Team Providers Care Truss Designer Name Role Phone Edie Ellis MD Primary Care Provider [phone] Encounter Details Date Type Department Care Team (Late st Contact Info) Description 05/19/2011 Orders [place] [address] Kelby Gill MD [facility] [place] [address] Social History Tobacco Use Types Packs/Day Years [...] AM EDT Hospital Encounter Non-[place] [address] Arrived documented as of this encounter Visit Diagnoses Not on filedocumented in this encounter Care Teams Truss Designer Relationship Specialty Start Date End Date Edie Ellis MD [facility] [address] [place] [address] PCP - General 10/15/10 documented as of this encounter
--- OUTSIDE RECORDS SUMMARY | 2024-07-05 19:50 | XMS_ITS | Encounter Summary ---
Author Organization [facility] [place] [address] Care Team Providers Care Lead Esthetician Name Role Phone Edie Ellis MD Primary Care Provider [phone] Reason for Visit * Reason Comments Backache Left Leg Pain Encounter Details Date Type Department Care Team (Late st Contact Info) Description 06/04/2012 3:15 PM EDT Follow-[place] [address] Hemant Rivera MD [facility] [place] [address] Lumbar radiculopathy (Primary Dx) Discharge Disposition: Home [...] AM EDT Hospital Encounter Non[place] [address] Arrived documented as of this encounter Visit Diagnoses Diagnosis Lumbar radiculopathy- Primary Thoracic or lumbosacral neuritis or radiculitis, unspecified documented in this encounter Care Teams Lead Esthetician Relationship Specialty Start Date End Date Edie Ellis MD [address] [place] [address] PCP - General 10/15/10 documented as of this encounter
--- OUTSIDE RECORDS SUMMARY | 2024-07-05 19:50 | XMS_ITS | Encounter Summary ---
Author Organization [facility] Address [facility] [place] [address] Care Team Providers Care Electrician Crane Maintenance Name Role Phone Edie Ellis MD Primary Care Provider Reason for Visit * Reason Comments Backache Encounter Details Date Type Department Care Team (Latest Contact Info) Description 05/19/2011 9:00 AM EDT Office [place] [address] Kelby Gill MD [facility] [place] [address] Lumbar radiculopathy (Primary Dx) Discharge Disposition: Home [...] 2. 3. Patient states they have a flag car driver to transport after procedure? Yes 4. [...] AM EDT Hospital Encounter Non-[place]vasive [place] [address] Arrived documented as of this encounter Results [...] mg documented in this encounter Care Teams Electrician Crane Maintenance Relationship Specialty Start Date End Date Edie Ellis MD [facility] [address] [place] [address] PCP - General 10/15/10 documented as of this encounter
--- OUTSIDE RECORDS SUMMARY | 2024-07-05 19:50 | XMS_ITS | Encounter Summary ---
[place] [address] Care Team Providers Care Director Targeted Marketing Name Role Phone Edie Ellis MD Primary Care Provider [phone] Encounter Details Date Type Department Care Team (Latest Contact Info) Description 03/06/2017 - 03/06/2017 11:59 PM EDT Hospital Encounter [place] [address] Edie Ellis MD [employer] [address] [place], [place] [address] Pain Discharge Disposition: Home Social History Tobacco [...] by mouth daily. 06/17/2021 Lancets Misc by [facility].(Non-Drug; Combo Route) route daily. 06/17/2021 Miscellaneous Medical Supply Misc 1 strip by [facility].(Non-Drug; Combo Route) route daily. 06/17/2021 clonAZEpam (KLONOPIN) [...] AM EDT Hospital Encounter Non-Invasive [place] [address] Arrived documented as of this encounter Procedures Procedure Name Priority Date/Time Associated Diagnosis Comments FILM LIBRARY STORAGE ONLY ULTRASOUND STUDY Routine 03/06/2017 12:00 AM EDT Pain documented in this encounter Results * Film Library- Storage Only Ultrasound Study (03/06/2017 12:00 AM EDT) Narrative [facility] - 03/18/2017 2:29 PM EDT This exam is for storage only and is auto-finalizing. Edie Ellis MD [facility] FILM LIBRARY ORD ERABLES [place], [place] documented in this encounter Visit Diagnoses Diagnosis Pain Generalized pain documented in this encounter Care Teams Director Targeted Marketing Relationship Specialty Start Date End Date Edie Ellis MD [address] [place] [address] PCP - General 10/15/10 documented as of this encounter
--- OUTSIDE RECORDS SUMMARY | 2024-07-05 19:50 | XMS_ITS | Encounter Summary ---
Author Organization [facility] Address [address] [place] [address] Care Team Providers Care Account Manager B2B Name Role Phone Edie Ellis MD Primary Care Provider [phone] Encounter Details Date Type Department Care Team ([facility] st Contact Info) Description 01/21/2023 Lab Requisition [facility] Pathology & Laboratory Medicine - [facility] [address] [place], [place] [address] Outr Resulting Lab, Provider Social History Tobacco [...] Lyme Ab Negative Negative 01/22/2023 10:50 EST [facility] Blood VENOUS BLOOD / Unknown 01/21/2023 10:44 EST 01/21/2023 22:08 EST Provider Outr Resulting Lab IMMUNOLOGY A ND SEROLOGY ORDERABLES [facility] [address] [place] [address] documented in this encounter Visit Diagnoses Not on filedocumented in this encounter Care Teams Account Manager B2B Relationship Specialty Start Date End Date Edie Ellis MD [address] [place] [phone] PCP - General 03/21/19 documented as of this encounter
--- OUTSIDE RECORDS SUMMARY | 2024-07-05 19:50 | XMS_ITS | Encounter Summary ---
Author Organization [facility] [place] [address] Care Team Providers Care Electrician Chief Name Role Phone Edie Ellis MD Primary Care Provider [phone] Encounter Details Date Type Department Care Team (Late st Contact Info) Description 02/15/2010 Orders Only Obstetrics [place] [address] Jessica Buchanan MD [facility] DR OBSTETRICS & [place] [address] Social History Tobacco Use Types Packs/Day Years Used Date Smoking Tobacco: Never Assessed [facility] Inpatient Questions Answer Date Recorded Does Anyone [...] EDT Hospital Encounter Non-Invasive [place] [address] Arrived documented as of this encounter Procedures Procedure Name Priority Date/Time Associated Diagnosis Comments SURGICAL PATHOLOGY REPORT Routine 02/18/2010 10:26 AM EDT documented in this encounter Results * Surgical Pathology Report (02/18/2010 10:26 AM EDT) Surgical Pathology Report [id number] ? Location: BP; BP15; A The signing [...] discoid shaped. ?? Membranes: ? Marginal insertion. ??Mia-pink, semitransparent. ?? Cord: ?36.0 x 1.2 cm [...] parenchyma; (4) maternal surface with parenchyma; (5-8) quality audit representative sections of surface with parenchyma; (5-8) [...] only in conjunction with standard diagnostic procedures. [facility] 02/18/2010 10:2 6 AM EDT Jessica Buchanan MD PATHOLOGY/CYTOLOGY [facility] documented in this encounter Visit Diagnoses Not on filedocumented in this encounter Additional Health Concerns Infection Onset Date Last Indicated Resolved Time Rule Out COVID-19 07/01/2021 07/01/2021 07/01/2021 12:54 PM EDT documented as of this encounter Care Teams Electrician Chief Relationship Specialty Start Date End Date Edie Ellis MD [facility] MORALES GRANADOS [facility] 1 [place] [address] PCP - General 10/15/10 documented as of this encounter
--- OUTSIDE RECORDS SUMMARY | 2024-07-05 19:50 | XMS_ITS | Encounter Summary ---
Author Organization [facility] Address [address] [place] [address] Care Team Providers Care Vp Design Name Role Phone Edie Ellis MD Primary Care Provider [phone] Encounter Details Date Type Department Care Team ([facility] st Contact Info) Description 08/28/2020 Lab Requisition [facility] Pathology & Laboratory Medicine - [facility] [address] [place], [place] [address] Outr Resulting Lab, Provider Social History Tobacco [...] Outr Resulting Lab MICROBIOLOGY - GENERAL ORDERABLES [facility] [address] [place] [address] * COVID-19 TESTING (08/28/2020 0:40 EDT) COVID-19 rt-PCR Result Negative Negative 08/28/2020 12:58 EDT [facility] Comment: This test has not [...] history, and epidemiological information. Performed on the [employer] Fusion instrument Performing Lab [place] [facility] Lab 08/28/2020 12:58 EDT [facility] Swab 08/28/2020 0:40 EDT 08/28/2020 8:59 EDT Provider Outr Resulting Lab MICROBIOLOGY - GENERAL ORDERABLES [facility] [address] [place] [address] documented in this encounter Visit Diagnoses Not on filedocumented in this encounter Care Teams Vp Design Relationship Specialty Start Date End Date Edie Ellis MD [address] [place] [phone] PCP - General 03/21/19 documented as of this encounter
--- OUTSIDE RECORDS SUMMARY | 2024-07-05 19:50 | XMS_ITS | Referral Summary ---
Author Organization [facility] Address [address] [place] [address] Care Team Providers Care Carpet Or Rug Layer Helper Name Role Phone Edie Ellis MD Primary Care Provider [phone] Social History Tobacco Use Types Packs/Day Years Used Date Smoking Tobacco: Never Assessed Interpersonal Safety Answer Date Record ed Physically Hurt Never 06/24/2020 Verbally Threaten Not on file 06/24/2020 Sex and Gender Information Value Date Recorded Sex Assigned at Not on file Gender Identity Not on file Sexual Orientation Not on file Plan of Treatment Not on file Care Teams Carpet Or Rug Layer Helper Relationship Specialty Start Date End Date Edie Ellis MD [address] [place] [address] [address] [place] [address] PCP - General 03/21/19
--- OUTSIDE RECORDS SUMMARY | 2024-07-05 19:50 | XMS_ITS | Encounter Summary ---
Author Organization [facility] Address [facility] [place] [address] Care Team Providers Care Slab Polisher Name Role Phone Edie Ellis MD Primary Care Provider [phone] Encounter Details Date Type Department Care Team (Latest Contact Info) Description 03/28/2011 2:38 PM EDT - 03/28/2011 11:59 PM EDT Hospital [place] [address] CLINIC, Kelby Bravo MD [facility] [place] [address] Lumbar radiculopathy Discharge Disposition: Home Social History [...] AM EDT Hospital Encounter Non-[place] [address] Arrived documented as of this encounter Procedures [...] to the prior study. Kelby Gill MD [facility] MRI ORDERABLE S documented in this encounter [...] Arm documented in this encounter Care Teams Slab Polisher Relationship Specialty Start Date End Date Edie Ellis MD [address] [place] [address] PCP - General 10/15/10 documented as of this encounter
--- OUTSIDE RECORDS SUMMARY | 2024-07-05 19:50 | XMS_ITS | Encounter Summary ---
Author Organization [facility] [place] [address] Care Team Providers Care Sports Editor Name Role Phone Edie Ellis MD Primary Care Provider [phone] Encounter Details Date Type Department Care Team (Late st Contact Info) Description 12/26/2011 Abstract [place] [address] Jamie Dickinson MD [facility] [place] [address] Social History Tobacco Use Types Packs/Day Years [...] AM EDT Hospital Encounter Non-Invasive [place] [address] Arrived documented as of this encounter Visit Diagnoses Not on filedocumented in this encounter Care Teams Sports Editor Relationship Specialty Start Date End Date Edie Ellis MD [address] [place] [address] [address] [place] [address] PCP - General 10/15/10 documented as of this encounter
--- OUTSIDE RECORDS SUMMARY | 2024-07-05 19:51 | XMS_ITS | Encounter Summary ---
Author Organization [facility] Address [address] [place] [address] Care Team Providers Care Support Specialist Name Role Phone Unknown, Provider Primary Care Provider Encounter Details Date Type Department Care Team (Latest Contact Info) Description 03/15/2019 9:46 EDT - 03/15/2019 23:59 EDT Hospital Encounter [address] [address] Unknown, Provider, Discharge Disposition: Home or Self Care Social History Tobacco Use Types Packs/Day Years Used Date Smoking Tobacco: Never Assessed Sex and Gender Information Value Date Recorded Sex Assigned at Not on file Gender Identity Not on file Sexual Orientation Not on file documented as of this encounter Discharge Disposition Disposition Code Departure Means Destination Home or Self Skilled Nursing documented in this encounter Plan of Treatment Not on file documented as of this encounter Visit Diagnoses Not on filedocumented in this encounter Care Teams Support Specialist Relationship Specialty Start Date End Date Unknown, Provider, PCP - General 10/04/15 03/20/19 documented as of this encounter
--- OUTSIDE RECORDS SUMMARY | 2024-07-05 19:51 | XMS_ITS | Encounter Summary ---
Author Organization [facility] Address [address] [place] [address] Care Team Providers Care Gravel Hauler Name Role Phone Unavailable Primary Care Provider Unavailabl e Encounter Details Date Type Department Care Team (Late st Contact Info) Description 09/14/2000 Results Only [facility] conversion [address] [place] [address] Unknown, Provider, Social History Tobacco Use Types [...] UNIT COLLECT ORDERABLES [facility] [address] [place] [address] documented in this encounter Visit Diagnoses Not on filedocumented in this encounter
--- OUTSIDE RECORDS SUMMARY | 2024-07-05 19:51 | XMS_ITS | Encounter Summary ---
Author Organization [facility] Address [address] [place] [address] Care Team Providers Care Insulation Mechanic Name Role Phone Unavailable Primary Care Provider Unavailabl e Encounter Details Date Type Department Care Team (Late st Contact Info) Description 10/27/2000 Results Only [facility] - [place] conversion [address] [place] [address] Tom Koehler MD [address] [place] [address] Social History Tobacco Use Types [...] ? RAMY GOTTLIEB ? Accession #: ? [id number] : ? 1975 (Age: 25) ??F ?Collect [...] Koehler MD PATHOLOGY ORDERABLES [facility] [address] [place] [address] documented in this encounter Visit Diagnoses Not on filedocumented in this encounter
--- OUTSIDE RECORDS SUMMARY | 2024-07-05 19:51 | XMS_ITS | Encounter Summary ---
Author Organization [facility] Address [address] [place] [address] Care Team Providers Care Calender Machine Operator Name Role Phone Unavailable Primary Care Provider Unavailabl e Encounter Details Date Type Department Care Team (Late st Contact Info) Description 02/21/2000 Results Only [facility] - Map conversion [address] [place] [address] Melodie Salguero CNM [facility] [place], [place] [id number] Social History Tobacco Use Types Packs/Day Years [...] ? RAMY GOTTLIEB ? Accession #: ? [id number] : ? 1975 (Age: 24) ??F ?Collect Date: ? 02/21/2000 Location: ?Receive Date: ? 02/21/2000 Provider: ?ANEA LELONG CNM Copy to: ?ANEA LELONG CNM ? Specimen/Source: ?Pap Smear (One Slide) Last Menstrual Period: ? GYNECOLOGIC ??CYTOPATHOLOGY ??REPORT Name: JELLY GOTTLIEBVISHAL Smiley ?[facility] : 1975 ?? 24Y F ?Client ID: [id number] SS#: [id number] ? Clinician: LELONG CNM, ANEA ?? Location: [facility] ??Copy to: ?? Specimen: ?Pap Smear [...] Salguero CNM PATHOLOGY ORDERABLES [facility] [address] [place] [address] documented in this encounter Visit Diagnoses Not on filedocumented in this encounter
--- OUTSIDE RECORDS SUMMARY | 2024-07-05 19:51 | XMS_ITS | Encounter Summary ---
Author Organization [facility] Address [address] [place] [address] Care Team Providers Care Electrical And Instrument Technician Name Role Phone Unavailable Primary Care Provider Unavailabl e Encounter Details Date Type Department Care Team (Late st Contact Info) Description 01/05/2006 Results Only [facility] [place] conversion [address] [place] [address] Edie Kerr MD [address] [facility] [address] [place] [address] Social History Tobacco Use Types [...] ? RAMY GOTTLIEB ? Accession #: ? [id number] : ? 1975 (Age: 30) ??F ?Collect Date: ? 01/05/2006 Location: ? [facility] ? Receive Date: ? 01/06/2006 Provider: ?EDIE KERR MD Copy to: ? Specimen/Source: ?ThinPrep Pap Test, Cervix/Endocervix, processed on [employer] ThinPrep Imaging System, with manual evaluation Last [...] Kerr MD PATHOLOGY ORDERABLES Performing Organization Address City/State/[facility] de Phone Number [facility] [address] [place] [address] documented in this encounter Visit Diagnoses Not on filedocumented in this encounter
--- OUTSIDE RECORDS SUMMARY | 2024-07-05 19:51 | XMS_ITS | Encounter Summary ---
Author Organization [facility] Address [address] [place] [address] Care Team Providers Care Senior Core Java Developer Name Role Phone Unavailable Primary Care Provider Unavailabl e Encounter Details Date Type Department Care Team (Late st Contact Info) Description 05/05/2004 Results Only [facility] [place] conversion [address] [place] [address] Gaudencio Calvin, DO [facility] [place] [address] Social History Tobacco Use Types Packs/Day Years [...] ? RAMY GOTTLIEB ? Accession #: ? [id number] ? : ? 1975 (Age: 28) ??F [...] Gross Description: ? Received in formalin labeled [place] and L5-S1 disc are four johnson-yellow to white portions of fibrocartilaginous tissue which measure 1.5 x 1.5 x 1.0 cm in aggregate. ??No definitive nodule is identified. ??No sections submitted. Gross only. ??(Ihsan Bailey/[facility] End of Report [facility] 05/05/2004 05/06/2004 14: 39 EDT Gaudencio Calvin DO PATHOLOGY ORDERAB LES [facility] [address] [place] [address] documented in this encounter Visit Diagnoses Not on filedocumented in this encounter
--- OUTSIDE RECORDS SUMMARY | 2024-07-05 19:51 | XMS_ITS | Encounter Summary ---
Author Organization [facility] Address [address] [place] [address] Care Team Providers Care Pit Shovel Operator Name Role Phone Unavailable Primary Care Provider Unavailabl e Encounter Details Date Type Department Care Team (Late st Contact Info) Description 03/27/2003 Results Only [facility] [place] conversion [address] [place] [address] Edie Kerr MD [address] [facility] [address] [place] [address] Social History Tobacco Use Types [...] ? RAMY GOTTLIEB ? Accession #: ? [id number] : ? 1975 (Age: 27) ??F ?Collect [...] Kerr MD PATHOLOGY ORDERABLES [facility] [address] [place] [address] documented in this encounter Visit Diagnoses Not on filedocumented in this encounter
--- OUTSIDE RECORDS SUMMARY | 2024-07-05 19:51 | XMS_ITS | Encounter Summary ---
Author Organization [facility] Address [address] [place] [address] Care Team Providers Care Meat Pickler Name Role Phone Unknown, Provider Primary Care Provider [phone] Encounter Details Date Type Department Care Team (Late st Contact Info) Description 03/15/2019 Results Only [facility] [phone] Oscar Irene MD [address] [place] [address] Social History Tobacco Use Types Packs/Day Years [...] ? RAMY GOTTLIEB ? Accession #: ? [id number] ? : ? 1975 (Age: 43) ??F ? Collect Date: ? 03/15/2019 ? Location: ? [facility] ? Receive Date: ? 03/16/2019 ? Provider: OSCAR IRENE MD Copy to: MANISHA KERR MD ? Final Pathologic Diagnosis: ENDOMETRIUM, CURETTAGE: - Inactive to weakly proliferative endometrium with papillary syncytial metaplasia and glandular and stromal breakdown. See comment. - Scant fragments of benign endocervical tissue. Comment: Conduit Bender slides of this case were reviewed at [...] (ASCP) 03/16/2019 4:20 PM End of Report [facility] 03/15/2019 15:4 1 EDT 03/16/2019 15:41 EDT Oscar Irene MD PATHOLOGY ORDERABLES [facility] [address] [place] [address] documented in this encounter Visit Diagnoses Not on filedocumented in this encounter Care Teams Meat Pickler Relationship Specialty Start Date End Date Unknown, Provider, PCP - General 10/04/15 03/20/19 documented as of this encounter
--- OUTSIDE RECORDS SUMMARY | 2024-07-05 19:51 | XMS_ITS | Encounter Summary ---
Author Organization [facility] Address [address] [place] [address] Care Team Providers Care Clamshell Operator Name Role Phone Unavailable Primary Care Provider Unavailabl e Encounter Details Date Type Department Care Team (Late st Contact Info) Description 03/02/2013 Results Only [facility] Laboratory [facility] - [facility] ([facility] [address] [place], [place] [address] Edie Kerr MD [address] [facility] [address] [place] [address] Social History Tobacco Use Types [...] ? RAMY GOTTLIEB ? Accession #: ? [id number] ? : ? 1975 (Age: 37) ??F [...] types 16,18,31,33,35, 39,45,51,52,56,58, 59,66, and 68 by climate change analyst mediated amplification. Comments Document reviewed and electronically signed by: ? System Interface ? Report date: 03/09/2013 By the signature above, the attending physician certifies that he/she has personally conducted a gross and/or microscopic examination of the described specimens and rendered or confirmed the above diagnosis. End of Report [facility] 03/02/2013 03/03/2013 Edie Kerr MD PATHOLOGY ORDERABLES [facility] [address] [place] [address] documented in this encounter Visit Diagnoses Not on filedocumented in this encounter
--- OUTSIDE RECORDS SUMMARY | 2024-07-05 19:51 | XMS_ITS | Encounter Summary ---
Author Organization [facility] Address [address] [place] [address] Care Team Providers Care Rollway Man Name Role Phone Unknown, Provider Primary Care Provider Encounter Details Date Type Department Care Team (Late st Contact Info) Description 02/15/2018 Results Only [facility] [phone] Edie Kerr MD [address] [facility] [address] [place] [address] Social History Tobacco Use Types [...] ? RAMY GOTTLIEB ? Accession #: ? [id number] ? : ? 1975 (Age: 42) ??F [...] types 16,18,31,33,35, 39,45,51,52,56,58, 59,66, and 68 by casting operator mediated amplification. Comments Document reviewed and electronically signed by: ? System Interface ? Report date: 02/19/2018 By the signature above, the attending physician certifies that he/she has personally conducted a gross and/or microscopic examination of the described specimens and rendered or confirmed the above diagnosis. End of Report [facility] 02/15/2018 02/16/2018 Edie Kerr MD PATHOLOGY ORDERABLES [facility] [address] [place] [address] documented in this encounter Visit Diagnoses Not on filedocumented in this encounter Care Teams Rollway Man Relationship Specialty Start Date End Date Unknown, Provider, PCP - General 10/04/15 03/20/19 documented as of this encounter
--- NOTE | 2024-07-05 19:58 | ED.GENADUL_ITS ---
Discharge Plan Disposition Patient Disposition: Home Discharge Details Clinical Impression: Acute pain of right shoulder, Hx of falling Primary Care Provider: Edie Ellis ED Provider: Prudencio Sims [place] Meds and New Rx's Prescriptions: Continued naproxen 250 mg tablet 500 mg PO BID PRN clonazepam 1 mg tablet 1 mg PO BID PRN melatonin 10 mg tablet 10 mg PO HS PRN loratadine 10 mg capsule 10 mg PO DAILY bupropion HCl [Wellbutrin SR] 150 mg tablet sustained-release 12 hr 150 mg PO BID cholecalciferol (vitamin D3) 50 mcg (2,000 unit) capsule 50 mcg PO DAILY metformin 500 mg tablet extended release 24 hr 1,000 mg PO BID Trulicity 1.5 mg/0.5 mL pen injector 3 mg subcut QWEEK Rx Instructions: - on rosuvastatin [Crestor] 5 MG tablet 10 mg PO QPM naratriptan 2.5 mg tablet 2.5 mg PO BID PRN riboflavin (vitamin B2) [Vitamin B-2] 50 MG tablet 200 mg PO BID polyethylene glycol 3350 17 gram/dose Powder 17 g PO DAILY PRN cyanocobalamin (vitamin B-12) 1,000 mcg tablet 1,000 mcg PO DAILY Patient Comments: TAKE ONE TABLET BY MOUTH EVERY DAY duloxetine 30 mg capsule,delayed release(DR/EC) 30 mg PO DAILY Patient Comments: Take 1 capsule by mouth once a day to replace paxil which she will wean off icosapent ethyl [Vascepa] 1 gram capsule 2 g PO BID Patient Comments: TAKE TWO CAPSULES BY MOUTH TWICE A DAY dapagliflozin propanediol [Farxiga] 5 mg tablet 5 mg PO DAILY Patient Comments: Take 1 tablet by mouth once a day hydromorphone 2 mg tablet 4 mg PO BID Patient Comments: TAKE TWO TABLETS BY MOUTH TWICE A DAY Entresto 97-103 mg tablet 1 tab PO BID Patient Comments: TAKE ONE TABLET BY MOUTH TWICE A DAY pregabalin 100 mg capsule 100 mg PO TID Patient Comments: Take 1 capsule by mouth three times a day metoprolol tartrate 25 mg Tablet 12.5 mg PO BID Qty: 0 0RF magnesium oxide 400 MG tablet 400 mg PO HS Qty: 0 0RF levothyroxine [Synthroid] 25 MCG tablet 50 mcg PO HS omeprazole 20 mg Capsule,Delayed Release(Dr/Ec) 20 mg PO DAILY prochlorperazine maleate 10 mg Tablet 10 mg PO DAILY PRN (Reason: Headache) albuterol sulfate [Ventolin HFA] 90 mcg/actuation Hfa Aerosol Inhaler 2 puff INHALATION QID PRN naloxone [Narcan] 4 mg/actuation [place],Non-Aerosol 1 spray INTRANASAL ONCE PRN Patient Comments: Never used. valacyclovir 1 gram tablet 500 mg PO QHS aspirin 81 mg tablet,delayed release (DR/EC) 81 mg PO DAILY Qty: 14 0RF Rx Instructions: Take 1 daily with a meal for 30 days estradiol 1 mg tablet See Rx Instructions .ROUTE .COMPLEX Patient Comments: TAKE 1 TABLET BY MOUTH EVERY MORNING THEN 2 TABLETS EVERY EVENING Rx Instructions: --> 1mg qAM and 1.5m,g qPM hydrocortisone 2.5 % cream 1 applic topical QID Qty: 30 6RF acetaminophen 500 mg capsule 1,000 mg PO Q8H PRN PRNQty: 30 0RF lamotrigine [Lamictal] 100 mg tablet 150 mg PO HS Patient Comments: TAKE 1 TABLET BY MOUTH EVERY DAY bupropion HCl 150 mg tablet extended release 24 hr 150 mg PO BID Patient Comments: TAKE ONE TABLET BY MOUTH TWICE A DAY WITH MEALS Discharge Instructions Instructions: Shoulder Pain ED Additional Instructions: You are seen in the emergency department for your shoulder pain. Your x-ray showed no sign of any fractures. You may wear a sling but please do not do so for more than 24 hours as this can cause decreased range of motion. Your CAT scan showed no sign of any internal bleeding or any broken bones in your neck or back. Please follow-up as needed next week with your primary care provider. Discharge Data Discharge Date/Time-TO BE ENTERED AT DEPARTURE: 07/05/24 23:09 HPI General Date/Time Provider Initiated Documentation: 07/05/24 19:13 . HPI Narrative: MDM Primary survey intact. Reassuring shock index. Secondary survey patient has cervical spinal tenderness and lumbar spinal tenderness with loss of bowel control concerning for possibility of spinal cord injury. Based on mechanism will obtain CT head cervical spine chest abdomen pelvis with T and L recons. Also obtain plain films right shoulder right elbow and left forearm given tenderness and abrasions. Tetanus has been updated. Will reassess following cross-sectional imaging. Will provide 500 cc crystalloid fluid bolus check trauma labs and treat pain with fentanyl and hydromorphone. Patient is to 18- gauge IVs. Comprehensive metabolic panel showing no MACY. Mild hyperglycemia mild anion gap and normal bicarbonate?does not consistent with DKA. No acute electrolyte abnormalities. No acute LFT abnormalities. Reassuring normal coags. CBC lacks anemia thrombocytopenia and leukocytosis. Negative hCG. Negative ethanol. Patient CT head and cervical spine were read as negative. I cleared her cervical spinal collar. CT chest abdomen pelvis with no acute abnormalities. CT thoracic and lumbar spine negative for any acute osseous abnormalities. Negative left forearm. 10:30 PM Will attempt to ambulate patient and p.o. trial. She has a reassuring trauma evaluation. She was provided a right upper extremity sling for comfort as she is having pain in the right shoulder. She is able to touch her right hand to her left shoulder so I am not suspicious for dislocation. She had a reassuring x-ray. No clavicular tenderness to suggest clavicular fracture. Chronic conditions affecting the care of the patient: Cardiomyopathy hypertension diabetes History obtained from an outside historian: Paramedics External record [place] [facility] [place] Medications: Analgesia Social determinants of health affecting disposition: N/A Management discussed with: N/A Treatment/interventions considered: N/A Response to therapies provided: N/A HPI This is a 49-year-old female with history of dilated cardiomyopathy diabetes and subcutaneous ICD arrived to the emergency department via EMS in the setting of a fall. Patient was reportedly out for a hike and fell approximately 8 feet onto some rocks. She has pain in her neck and lower back. She also has pain in her right shoulder. She did not lose consciousness. She did strike her head. She received 100 mcg of fentanyl en route. No preceding chest pain or syncope. Exam General: Uncomfortable-appearing in no acute distress speaking in complete sentences. Head: Normocephalic, atraumatic. Eye:[Pupils equal, round reactive to light.] Extraocular eye movements intact. No conjunctival injection. No scleral icterus. Ear, nose, mouth, throat: Grossly normal inspection. Normal voice, handling secretions normally. No hemotympanum bilaterally. No septal hematoma. Neck: Trachea midline. Midline cervical spinal tenderness. Wearing a cervical collar. Cardiovascular: Well-perfused distal extremities. Regular rate and rhythm. Chest wall: No chest wall tenderness. Left-sided subcutaneous ICD in place. Respiratory: Nonlabored respiration. Clear lungs bilaterally. Back: Midline thoracic and lumbar spinal tenderness. Gastrointestinal: Nondistended abdomen. Minimal suprapubic tenderness. No rebound. No guarding. Musculoskeletal: Right upper extremity Tenderness throughout right shoulder and clavicle. No obvious deformity. Right elbow tenderness. No lacerations. Limited range of motion right elbow second [place]ona to tenderness. Right hand nontender. Left upper extremity Superficial dorsal hand abrasions. Otherwise left upper extremity nontender. Lower extremities Pelvis stable to anterior posterior compression. Bilateral lower extremities nontender. Skin: Normal for age and race, grossly normal temperature and turgor. No acute rash. Neurologic: Alert and appropriate, no apparent acute deficits. GCS 15. Psychiatric: Mood and manner are appropriate. Grooming and personal hygiene are appropriate. Related Data Home Medications ?Medication ?Instructions ?Recorded ?Confirmed rosuvastatin 5 mg tablet (Crestor) 10 mg PO QPM 06/28/13 07/05/24 riboflavin (vitamin B2) 50 mg 200 mg PO BID 03/13/15 07/05/24 tablet (Vitamin B-2) levothyroxine 25 mcg tablet 50 mcg PO HS 03/05/17 07/05/24 (Synthroid) albuterol sulfate 90 mcg/actuation 2 puff inhalation QID PRN 03/10/19 07/05/24 aerosol inhaler (Ventolin HFA) naloxone 4 mg/actuation nasal 1 spray intranasal ONCE PRN 03/10/19 07/05/24 spray (Narcan) omeprazole 20 mg capsule,delayed 20 mg PO DAILY 03/10/19 07/05/24 release prochlorperazine maleate 10 mg 10 mg PO DAILY PRN Headache 03/10/19 07/05/24 tablet valacyclovir 1 gram tablet 500 mg PO QHS 03/21/19 07/05/24 aspirin 81 mg tablet,delayed 81 mg PO DAILY Prevent blood clot 09/30/19 07/05/24 release #14 tabs polyethylene glycol 3350 17 17 g PO DAILY PRN 12/22/19 07/05/24 gram/dose oral powder naratriptan 2.5 mg tablet 2.5 mg PO BID PRN 03/27/20 07/05/24 estradiol 1 mg tablet See Rx Instructions .Route .COMPLEX 06/10/21 07/05/24 cholecalciferol (vitamin D3) 50 50 mcg PO DAILY 11/21/21 07/05/24 mcg (2,000 unit) capsule metformin 500 mg tablet,extended 1,000 mg PO BID 11/21/21 07/05/24 release 24 hr dulaglutide 1.5 mg/0.5 mL 3 mg subcut QWEEK 12/18/21 07/05/24 subcutaneous pen injector (Trulicity) hydrocortisone 2.5 % topical cream 1 applic topical QID #30 grams 12/31/21 07/05/24 naproxen 250 mg tablet 500 mg PO BID PRN 04/16/22 07/05/24 acetaminophen 500 mg capsule 1,000 mg (2 x 500 mg) PO Q8H PRN 05/13/22 07/05/24 PRN #30 caps lamotrigine 100 mg tablet 150 mg PO HS 09/08/22 07/05/24 (Lamictal) clonazepam 1 mg tablet 1 mg PO BID PRN 11/14/22 07/05/24 melatonin 10 mg tablet 10 mg PO HS PRN 11/14/22 07/05/24 bupropion HCl 150 mg tablet,12 hr 150 mg PO BID 03/03/23 07/05/24 sustained-release (Wellbutrin SR) loratadine 10 mg capsule 10 mg PO DAILY 03/03/23 07/05/24 cyanocobalamin (vitamin B-12) 1,000 mcg PO DAILY 08/13/23 07/05/24 1,000 mcg tablet dapagliflozin propanediol 5 mg 5 mg PO DAILY 08/13/23 07/05/24 tablet (Farxiga) duloxetine 30 mg capsule,delayed 30 mg PO DAILY 08/13/23 07/05/24 release hydromorphone 2 mg tablet 4 mg PO BID 08/13/23 07/05/24 icosapent ethyl 1 gram capsule 2 g PO BID 08/13/23 07/05/24 (Vascepa) pregabalin 100 mg capsule 100 mg PO TID 08/13/23 07/05/24 sacubitril 97 mg-valsartan 103 mg 1 tab PO BID 08/13/23 07/05/24 tablet (Entresto) magnesium oxide 400 mg (241.3 mg 400 mg PO HS #0 tabs 08/17/23 07/05/24 magnesium) tablet metoprolol tartrate 25 mg tablet 12.5 mg (1/2 x 25 mg) PO BID #0 08/17/23 07/05/24 tabs bupropion HCl 150 mg 24 hr tablet, 150 mg PO BID 01/07/24 07/05/24 extended release Previous Rx's ?Medication ?Instructions ?Recorded aspirin 81 mg tablet,delayed 81 mg PO DAILY Prevent blood clot 09/30/19 release #14 tabs hydrocortisone 2.5 % topical cream 1 applic topical QID #30 grams 12/31/21 acetaminophen 500 mg capsule 1,000 mg (2 x 500 mg) PO Q8H PRN 05/13/22 PRN #30 caps magnesium oxide 400 mg (241.3 mg 400 mg PO HS #0 tabs 08/17/23 magnesium) tablet metoprolol tartrate 25 mg tablet 12.5 mg (1/2 x 25 mg) PO BID #0 08/17/23 tabs Allergies Allergy/AdvReac Type Severity Reaction Status Date / Time Penicillins Allergy Severe throat Verified 07/05/24 19:44 closes Sulfa (Sulfonamide Allergy Mild Hives Verified 07/05/24 19:44 Antibiotics) lactose AdvReac Diarrhea Verified 07/05/24 19:44 General Stated Complaint: Trauma RENATO: 2 Course Vital Signs Vital signs: Vital Signs Pulse 89 07/05/24 19:08 Respiratory Rate 30 H 07/05/24 19:08 Blood Pressure 118/78 07/05/24 19:08 Pulse Oximetry 97 07/05/24 19:08 Pulse 89 07/05/24 19:08 Respiratory Rate 30 H 07/05/24 19:08 Respiratory Effort Normal, Non-Labored 07/05/24 19:49 Blood Pressure 118/78 07/05/24 19:08 Blood Pressure Position Supine 07/05/24 19:08 Pulse Oximetry 97 07/05/24 19:08 Oxygen Delivery Method Room Air 07/05/24 19:08 Oxygen Flow Rate 0 07/05/24 19:08 Pain Level 8 07/05/24 19:34 Lab/Test Results Lab/Test Results: Laboratory Tests Range/Units 07/05/24 19:15 WBC (4.4-10.8) 10^3/uL 7.23 RBC (3.93-5.22) 10^6/uL 4.41 Hgb (11.2-15.7) g/dL 14.0 Hct (36.0-46.0) % 40.2 MCV (80-95) fL 91 MCH (27.0-33.0) pg 31.7 MCHC (32.0-36.0) % 34.8 RDW (11.7-14.6) % 12.5 Plt Count (130-400) 10^3/uL 187 MPV (8.0-11.0) fL 10.3 Immature Gran % % 0.1 Neutrophils % % 44.2 Lymphocytes % % 47.9 Monocytes % % 5.7 Eosinophils % % 1.5 Basophils % % 0.6 Nucleated RBC % (0.0-0.3) % 0.0 Absolute Neutrophils (1.2-6.7) 10^3/uL 3.20 Absolute Lymphocytes (1.2-3.4) 10^3/uL 3.46 H Absolute Monocytes (0.1-0.8) 10^3/uL 0.41 Absolute Eosinophils (0.0-0.7) 10^3/uL 0.11 Absolute Basophils (0.0-0.2) 10^3/uL 0.04 Medical Decision Making Quality:SDOH Health Related Social Needs: No Data to Display PFSH All Active Problems (Updated 07/05/24 @ 23:07 by Prudencio Sims MD) Hx of falling (Acute) Acute pain of right shoulder (Acute) Intentional benzodiazepine overdose (Acute) Patellofemoral arthritis of left knee (Acute) Pulmonary hypertension (Chronic) Acute respiratory failure with hypoxia (Acute) Pulmonary edema (Acute) Acute respiratory distress (Acute) COVID-19 (Acute) Bilateral carpal tunnel syndrome (Acute) S/P R ECTR: 05/13/2022 Amplified musculoskeletal pain (Acute) Tendonitis of long head of biceps brachii of right shoulder (Acute) Bursitis of right shoulder (Acute) Traumatic tear of right rotator cuff (Acute) Calcific tendinitis of right shoulder (Acute) 40mg depo-medrol injection: 02/11/2022 Lateral epicondylitis of right elbow (Acute) 40mg depo-medrol injection: 02/11/2022 Hematest positive stools (Acute) Cardiomyopathy (Chronic) last echocardiogram 01/27/2019, LVEF 50-55%, no regional wall motion abnormalities, mild LVH, mild MR; normal RV size and function Bipolar disorder (Chronic) 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 (Acute 01/25/14) Atypical chest pain (Acute) Type 2 diabetes mellitus (Chronic) Palpitations (Acute) Spell of altered consciousness (Acute) Elevated brain natriuretic peptide (BNP) level (Acute) Chest pain (Acute) Screening for colon cancer (Acute) Tobacco use (Acute) Fecal occult blood test positive (Acute) Medical History Acute kidney injury Anxiety 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 (01/25/14) Bursitis of left shoulder (~03/2019) CAD (coronary artery disease) mild non-obstructive disease per cardiac [place] [facility] [place], more recent repeat cath unchanged but with pulmonary HTN Carpal tunnel syndrome, left Cervical radiculopathy bilateral Change in mental status Chronic migraine (03/07/15) Chronic pain syndrome Dehydration Depression Diabetes Discharge planning issues Dizziness, nonspecific Dyspnea Elbow fracture, right Fatigue Hyperlipidemia Hyperthyroidism Impingement syndrome of left shoulder (~03/2019) Lactose intolerance Left rotator cuff tear (~03/2019) Medication overuse headache (03/07/15) Migraine headache with aura (03/07/15) Migraine headache without aura (03/07/15) Morbid obesity Myalgia Orthostasis Polycystic ovaries Shortness of breath Splenomegaly Suicidal ideation Tachycardia Tendinitis of long head of biceps brachii of left shoulder (~03/2019) Unresponsive episode Urinary incontinence Surgical History History of arthroscopy of left shoulder History of section x2 History of endometrial ablation Hx of cardiac catheterization 08/2021-no stent placed Previous back surgery S/P hysterectomy Social History Smoking/Tobacco Use Status: Former Tobacco Use Quit status: quit date established Smoking risk assessment performed?: Yes Alcohol Intake: never Drug use: Never Substance use type: does not use Number of Children: 3 Current gender identity: female What is your relationship status?: Panel score (0-1 are the most socially isolated patients): 0 What type of physical activity do you participate in: none Do you feel safe at home: Yes Do you feel safe in your relationship?: Yes Female Reproductive History Menstrual control method: permanent sterilization
[2024-07-05 19:59] LABS: Prothrombin Time 10.4 sec (9.1-11.1)
[2024-07-05 20:13] LABS: HCG Qual (Serum) Negative
[2024-07-05 20:15] LABS: ALT 27 U/L (14-59); AST 20 U/L (15-37); Albumin 3.2 g/dL (3.4-5.0); Alkaline Phosphatase 41 U/L (46-116); Anion Gap 12.7 mmol/L (3-11); BUN 18 mg/dL (7-18); Bilirubin, Total 0.39 mg/dL (0.2-1.0); CO2 23.3 mmol/L (21.0-32.0); CREATININE 0.9 mg/dL (0.55-1.02); Chloride 102 mmol/L (98-107); Estimated GFR 78.37 (mL/min/1.73m2); Glucose 141 mg/dL (74-106); Potassium 3.8 mmol/L (3.5-5.1); Sodium 138 mmol/L (136-145); Total Protein 6.2 g/dL (6.4-8.2)
[2024-07-05 20:28] LABS: ETHANOL BLOOD < 3.0 mg/dL (<10)
[2024-07-05] MEDS: Omnipaque 350 MG/ML 100 ML BTL IJ (20:33)
[2024-07-05] MEDS: Normal Saline - Diluent 50 ML VIAL IJ (20:34)
--- NOTE | 2024-07-05 21:31 | DI.VRAD_ITS ---
PROCEDURE INFORMATION: Exam: CT Head Without Contrast Exam date and time: 07/05/2024 8:19 PM Age: 49 years old Clinical indication: Other: Cervical tenderness TECHNIQUE: Imaging protocol: Computed tomography of the head without contrast. COMPARISON: CT HEAD WO 08/03/2022 6:24 PM FINDINGS: Brain: Normal. No hemorrhage. Unremarkable white matter. No mass effect. Cerebral ventricles: No ventriculomegaly. Paranasal sinuses: Visualized sinuses are unremarkable. No fluid levels. Mastoid air cells: Visualized mastoid air cells are well aerated. Bones: Unremarkable. No acute fracture. Soft tissues: Unremarkable. IMPRESSION: No acute intracranial abnormality. PROCEDURE INFORMATION: Exam: CT Cervical Spine Without Contrast Exam date and time: 07/05/2024 8:19 PM Age: 49 years old Clinical indication: Other: Cervical tenderness TECHNIQUE: Imaging protocol: Computed tomography of the cervical spine without contrast. COMPARISON: MR CERVICAL SPINE WO 01/23/2023 1:07 PM FINDINGS: Bones: No acute fracture. Normal alignment. Straightening of lordosis. No significant disc bulge or herniation. No severe spinal canal stenosis. No significant neural foraminal narrowing. Lungs: Lung apices are normal. Soft tissues: Unremarkable. IMPRESSION: 1. No acute fracture or subluxation. 2. Straightening of lordosis. Dictated and Authenticated by: Bentley Posada MD. Ordering:RUDY Flannery MD
--- NOTE | 2024-07-05 21:35 | DI.VRAD_ITS ---
PROCEDURE INFORMATION: Exam: CT Chest With Contrast; Diagnostic Exam date and time: 07/05/2024 8:28 PM Age: 49 years old Clinical indication: Other: Abdominal pain trauma TECHNIQUE: Imaging protocol: Diagnostic computed tomography of the chest with contrast. 3D rendering (Not supervised by radiologist): MIP and/or 3D reconstructed images were created by the technologist. Contrast material: OMNIPAQUE; Contrast volume: 100 ml; Contrast route: INTRAVENOUS (IV); COMPARISON: CT CHEST PE CTA 09/07/2022 5:38 PM FINDINGS: Lungs: Unremarkable. No consolidation. No masses. Pleural spaces: Unremarkable. No pneumothorax. No pleural effusion. Heart: Unremarkable. No cardiomegaly. No pericardial effusion. Lymph nodes: Unremarkable. No enlarged lymph nodes. Vasculature: Unremarkable. No aortic aneurysm. Bones/joints: Moderate anterior osteophyte formation throughout the lower thoracic spine. Osseous alignment appears normal. No vertebral body compression or acute fracture. Soft tissues: Unremarkable. IMPRESSION: No acute abnormality PROCEDURE INFORMATION: Exam: CT Abdomen And Pelvis With Contrast Exam date and time: 07/05/2024 8:28 PM Age: 49 years old Clinical indication: Other: Abdominal pain trauma TECHNIQUE: Imaging protocol: Computed tomography of the abdomen and pelvis with contrast. 3D rendering (Not supervised by radiologist): MIP and/or 3D reconstructed images were created by the technologist. Contrast material: OMNIPAQUE; Contrast volume: 100 ml; Contrast route: INTRAVENOUS (IV); COMPARISON: CT CHEST/ABD/PEL W 01/22/2022 5:19 PM FINDINGS: Liver: Normal. No mass. Gallbladder and biliary ducts: Normal. No calcified stones. No ductal dilation. Pancreas: Normal. No ductal dilation. Spleen: Normal. No splenomegaly. Adrenal glands: Normal. No mass. Kidneys and ureters: Normal. No hydronephrosis. Stomach and bowel: Unremarkable. No obstruction. No mucosal thickening. Appendix: The appendix is visualized and appears normal. Intraperitoneal space: Unremarkable. No free air. No significant fluid collection. Vasculature: Unremarkable. No abdominal aortic aneurysm. Lymph nodes: Unremarkable. No enlarged lymph nodes. Urinary bladder: Unremarkable as visualized. Reproductive: Uterus is absent. No adnexal abnormality. Bones/joints: Significant degenerative disc changes including disc bulge and uncovertebral spurring produce moderate central canal and bilateral neural foramen narrowing at the lumbosacral junction. Mild degenerative disc changes noted throughout the remainder of the lumbar spine. No vertebral body compression or acute fracture. Mild degenerative changes in the bilateral sacroiliac joints. Soft tissues: Unremarkable. IMPRESSION: No acute abnormality. Significant degenerative changes noted at the lumbosacral junction. Dictated and Authenticated by: Cheo Alcantara MD. Ordering:RUDY Flannery MD
--- NOTE | 2024-07-05 21:38 | DI.VRAD_ITS ---
PROCEDURE INFORMATION: Exam: XR Left Forearm Exam date and time: 07/05/2024 8:59 PM Age: 49 years old Clinical indication: Injury or trauma; Fall; Blunt trauma (contusions or hematomas); Arm, lower; Left; Injury date: 07/05/24 TECHNIQUE: Imaging protocol: Radiologic exam of the left forearm. Views: 2 views. COMPARISON: MR UPPER JOINT LT WO 09/15/2019 8:08 AM FINDINGS: Bones/joints: Osseous alignment is normal. No acute fracture. No significant arthritic change. Soft tissues: Normal. IMPRESSION: Negative left forearm Dictated and Authenticated by: Cheo Alcantara MD. Ordering:RUDY Flannery MD
--- NOTE | 2024-07-05 21:50 | DI.VRAD_ITS ---
PROCEDURE INFORMATION: Exam: CT Thoracic Spine Without Contrast Exam date and time: 07/05/2024 8:28 PM Age: 49 years old Clinical indication: Other: Lumbar spine pain TECHNIQUE: Imaging protocol: Computed tomography of the thoracic spine without contrast. COMPARISON: CT THORACIC LUMBAR SPINE WO 12/02/2023 6:24 PM FINDINGS: Bones/joints: Moderate multilevel anterior osteophyte formation throughout the lower thoracic spine. Mild multilevel degenerative disc changes. Osseous alignment is normal. No vertebral body compression or acute fracture. Soft tissues: Unremarkable. IMPRESSION: No acute abnormality. Chronic findings as noted. PROCEDURE INFORMATION: Exam: CT Lumbar Spine Without Contrast Exam date and time: 07/05/2024 8:28 PM Age: 49 years old Clinical indication: Other: Lumbar spine pain TECHNIQUE: Imaging protocol: Computed tomography of the lumbar spine without contrast. COMPARISON: CT THORACIC LUMBAR SPINE WO 12/02/2023 6:24 PM FINDINGS: Bones/joints: Significant degenerative disc changes including disc bulge and uncovertebral spurring at the lumbosacral junction, producing moderate central canal and bilateral neural foramen narrowing. More mild disc bulge and uncovertebral spurring throughout the remainder of the lumbar spine. No vertebral body compression or acute fracture. Moderate degenerative changes in the bilateral sacroiliac joints. Soft tissues: Unremarkable. IMPRESSION: No acute abnormality. Chronic findings as noted. Dictated and Authenticated by: Cheo Alcantara MD. Ordering:RUDY Flannery MD
--- NOTE | 2024-07-05 21:53 | DI.VRAD_ITS ---
PROCEDURE INFORMATION: Exam: XR Right Shoulder Exam date and time: 07/05/2024 8:51 PM Age: 49 years old Clinical indication: Injury or trauma; Fall; Blunt trauma (contusions or hematomas); Shoulder; Right TECHNIQUE: Imaging protocol: Radiologic exam of the right shoulder. Views: 2 or more views. COMPARISON: CR XR SHOULDER RT COMPLETE 2+V 02/11/2022 2:11 PM FINDINGS: Bones/joints: Osseous alignment is normal. No acute fracture. No significant arthritic changes. Soft tissues: Normal. IMPRESSION: Negative right shoulder Dictated and Authenticated by: Cheo Alcantara MD. Ordering:RUDY Flannery MD
--- NOTE | 2024-07-05 21:54 | DI.VRAD_ITS ---
PROCEDURE INFORMATION: Exam: XR Right Elbow Exam date and time: 07/05/2024 8:55 PM Age: 49 years old Clinical indication: Injury or trauma; Fall; Blunt trauma (contusions or hematomas); Elbow; Right TECHNIQUE: Imaging protocol: Radiologic exam of the right elbow. Views: 3 or more views. COMPARISON: MR UPPER JOINT RT WO 01/23/2023 1:36 PM FINDINGS: Bones/joints: Osseous alignment is normal. No acute fracture. No significant arthritic change. No evidence of joint fluid. Soft tissues: Normal. IMPRESSION: Negative right elbow Dictated and Authenticated by: Cheo Alcantara MD. Ordering:RUDY Flannery MD
[2024-07-05] MEDS: clonazePAM 0.5 MG TAB PO (22:04)
[2024-07-05] MEDS: Ketorolac 15 MG/ML VIAL IVP (22:05)
[2024-07-05] MEDS: Gabapentin 300 MG CAP PO (22:40)
[2024-07-05] MEDS: Acetaminophen 500 MG TAB 1000 MG PO (22:41)
[2024-07-05] MEDS: HYDROmorphone 4 MG TAB PO (23:23)
[2024-07-05] MEDS: SUMAtriptan 25 MG TAB PO (23:24)
--- NOTE | 2024-07-07 17:22 | NUR.NOTE ---
Chart opened to see pts date of to print a facesheet. Nursing Note:
--- NOTE | 2024-07-09 15:35 | NUR.NOTE ---
Access chart to get billing information for [facility] requisitions. Nursing Note:
== END 2024-07-05 23:09 | disposition home or self-care (01) ==
PROVIDERS: Emergency Provider Emergency Medicine; PCP Family Medicine
DX: M25.511 Pain in right shoulder (principal); S09.90XA Unspecified injury of head, initial encounter; M54.2 Cervicalgia; M54.50 Low back pain, unspecified; M25.531 Pain in right wrist; W17.89XA Other fall from one level to another, initial encounter; Y93.01 Activity, walking, marching and hiking; I11.9 Hypertensive heart disease without heart failure; I43 Cardiomyopathy in diseases classified elsewhere; E11.65 Type 2 diabetes mellitus with hyperglycemia; Z79.84 Long term (current) use of oral hypoglycemic drugs; Z79.899 Other long term (current) drug therapy; I25.10 Atherosclerotic heart disease of native coronary artery without angina pectoris; E78.5 Hyperlipidemia, unspecified; E05.90 Thyrotoxicosis, unspecified without thyrotoxic crisis or storm; Z79.85 Long-term (current) use of injectable non-insulin antidiabetic drugs; Z79.82 Long term (current) use of aspirin; Z95.810 Presence of automatic (implantable) cardiac defibrillator
CPT/HCPCS: 74177; 80053; 86850; 86900; 86901; 90471; 90715; 93005; 96374; 96375; 99285; 70450; 71260; 72125; 73020; 73080; 73090; 80320; 84703; 85025; 85610; 85730; 93010; 99284; J1170; J1885; J3010; J3490

== ENCOUNTER 2024-08-15 11:49 | Observation (INO) | payer MEDICARE, MEDICAID, SELFPAY ==
[2024-08-15] VITALS (44 sets, daily range): BP systolic 100–122; BP diastolic 55–79; PULSE 63–88; RESP 12–29; TEMP 36.2–36.9; O2SAT 86–100
[2024-08-15 12:26] LABS: Abs Immature Grans 0.01 10^3/uL (0.0-0.06); Absolute Basophil Count 0.06 10^3/uL (0.0-0.2); Absolute Eosinophil Count 0.18 10^3/uL (0.0-0.7); Absolute Lymphocyte Count 2.57 10^3/uL (1.2-3.4); Absolute Monocyte Count 0.41 10^3/uL (0.1-0.8); Absolute Neutrophil Count 4.46 10^3/uL (1.2-6.7); Basophils % 0.8 %; Eosinophils % 2.3 %; HCT 44.7 % (36.0-46.0); HGB 14.9 g/dL (11.2-15.7); Immature Grans % 0.1 %; Lymphocytes % 33.4 %; MCH 30.9 pg (27.0-33.0); MCHC 33.3 % (32.0-36.0); MCV 93 fL (80-95); MPV 10.2 fL (8.0-11.0); Monocytes % 5.3 %; Neutrophils % 58.1 %; Platelet Count 193 10^3/uL (130-400); RBC 4.82 10^6/uL (3.93-5.22); RDW 11.9 % (11.7-14.6); RDW-SD 40.5 fL; WBC 7.69 10^3/uL (4.4-10.8)
[2024-08-15] MEDS: levETIRAcetam 1,000 MG in Normal Saline 100 ML 400 MG IVPB ×2 (12:29→18:47)
[2024-08-15 12:50] LABS: ALT 29 U/L (14-59); AST 27 U/L (15-37); Albumin 3.5 g/dL (3.4-5.0); Alkaline Phosphatase 51 U/L (46-116); Anion Gap 6.4 mmol/L (3-11); BUN 21 mg/dL (7-18); Bilirubin, Total 0.44 mg/dL (0.2-1.0); CO2 29.6 mmol/L (21.0-32.0); CREATININE 0.8 mg/dL (0.55-1.02); Calcium 9.2 mg/dL (8.5-10.1); Chloride 103 mmol/L (98-107); Estimated GFR 90.27 (mL/min/1.73m2); Glucose 79 mg/dL (74-106); Potassium 4.3 mmol/L (3.5-5.1); Sodium 139 mmol/L (136-145); TSH (W/Ref FT4) 0.62 uIU/mL (0.36-3.74); Total Protein 6.8 g/dL (6.4-8.2)
--- NOTE | 2024-08-15 13:21 | DI.CT_ITS ---
Exam(s) CT HEAD WO EXAM: CT HEAD WO CLINICAL HISTORY: seizure. TECHNIQUE: Imaging Protocol: Axial computed tomography images with coronal and sagittal reformatted images were created and reviewed COMPARISON: CT CT HEAD CERVICAL SPINE WO from 07/05/2024 FINDINGS: Ventricles and Extra axial spaces: Normal in size and morphology for the patient's age. Hemorrhage: None. Cerebral parenchyma: Normal. Midline shift: None. Brainstem/Cerebellum: Normal. Calvarium: Normal. Visualized Paranasal sinuses/Mastoids: Clear. Soft Tissues: Unremarkable. IMPRESSION: No acute intracranial process. RADIATION DOSE DELIVERED: 805.04mGy.cm Total DLP DATA REPOSITORY: All CT scans at this facility are submitted to the National Radiology Data Registry (NRDR) Dose Index Registry (DIR) with the [employer] (A[employer]). RADIATION OPTIMIZATION: All CT scans at this facility use at least one of these dose optimization te chniques: automated exposure control; mA and/or kV adjustment per patient size (includes targeted exa ms where dose is matched to clinical indication); or iterative reconstruction.
[2024-08-15 14:04] LABS: *AMPHETAMINES SCREEN URINE Negative (Negative); *BARBITURATES SCREEN URINE Negative (Negative); *BENZODIAZEPINES SCREEN URINE Positive (Negative); Cannabinoids THC Negative (Negative); Cocaine Screen,Urine Negative (Negative); METHADONE URINE SCREEN Negative (Negative); OPIATES URINE SCREEN Negative (Negative)
[2024-08-15 14:06] LABS: Tricyclic Antidepressants Negative (Negative)
--- NOTE | 2024-08-15 14:38 | W.ED.GENAD ---
Discharge Plan Disposition Patient Disposition: Admit to [facility] Condition: Stable Discharge Details Clinical Impression: Seizure Admit Date/Time: 08/15/24 16:12 Admit Provider: Nicolas Clemente Attending Provider: Nicolas Clemente Primary Care Provider: Edie Ellis ED Provider: Cisco French Discharge Data Discharge Date/Time-TO BE ENTERED AT DEPARTURE: 08/15/24 16:57 HPI General Mode of arrival: ambulatory. Date/Time Provider Initiated Documentation: 08/15/24 11:53. Limitations to Documentation: altered mental status. Information obtained by: patient and EMS. HPI Narrative: 49-year-old female with multiple medical problems including history of seizures, on Keppra, here after having multiple seizures this morning. Seizures were generalized, longest lasting 2 minutes, witnessed. EMS witnessed seizure and administered midazolam 10 mg. Patient is now fatigued and altered. Patient does note she had some mild headache this morning which has persisted. Headache localized to right frontal. Related Data Home Medications ?Medication ?Instructions ?Recorded ?Confirmed levothyroxine 25 mcg tablet 50 mcg PO HS 03/05/17 08/15/24 (Synthroid) albuterol sulfate 90 mcg/actuation 2 puff inhalation QID PRN 03/10/19 08/15/24 aerosol inhaler (Ventolin HFA) naloxone 4 mg/actuation nasal 1 spray intranasal ONCE PRN 03/10/19 08/15/24 spray (Narcan) omeprazole 20 mg capsule,delayed 20 mg PO DAILY 03/10/19 08/15/24 release prochlorperazine maleate 10 mg 10 mg PO DAILY PRN Headache 03/10/19 08/15/24 tablet aspirin 81 mg tablet,delayed 81 mg PO DAILY Prevent blood clot 09/30/19 08/15/24 release #14 tabs polyethylene glycol 3350 17 17 g PO DAILY PRN 12/22/19 08/15/24 gram/dose oral powder naratriptan 2.5 mg tablet 2.5 mg PO BID PRN 03/27/20 08/15/24 estradiol 1 mg tablet See Rx Instructions .Route .COMPLEX 06/10/21 08/15/24 cholecalciferol (vitamin D3) 50 50 mcg PO DAILY 11/21/21 08/15/24 mcg (2,000 unit) capsule hydrocortisone 2.5 % topical cream 1 applic topical QID #30 grams 12/31/21 08/15/24 acetaminophen 500 mg capsule 1,000 mg (2 x 500 mg) PO Q8H PRN 05/13/22 08/15/24 PRN #30 caps clonazepam 1 mg tablet 1 mg PO BID PRN 11/14/22 08/15/24 melatonin 10 mg tablet 10 mg PO HS PRN 11/14/22 08/15/24 loratadine 10 mg capsule 10 mg PO DAILY 03/03/23 08/15/24 cyanocobalamin (vitamin B-12) 1,000 mcg PO DAILY 08/13/23 08/15/24 1,000 mcg tablet dapagliflozin propanediol 5 mg 5 mg PO DAILY 08/13/23 08/15/24 tablet (Farxiga) icosapent ethyl 1 gram capsule 2 g PO BID 08/13/23 08/15/24 (Vascepa) pregabalin 100 mg capsule 100 mg PO TID 08/13/23 08/15/24 sacubitril 97 mg-valsartan 103 mg 1 tab PO BID 08/13/23 08/15/24 tablet (Entresto) magnesium oxide 400 mg (241.3 mg 400 mg PO HS #0 tabs 08/17/23 08/15/24 magnesium) tablet bupropion HCl 150 mg 24 hr tablet, 150 mg PO BID 01/07/24 08/15/24 extended release mirabegron 25 mg tablet,extended 25 mg PO Q24H 08/05/24 08/15/24 release 24 hr (Myrbetriq) vortioxetine 20 mg tablet 20 mg PO DAILY 08/05/24 08/15/24 (Trintellix) bupropion HCl 300 mg 24 hr tablet, 300 mg PO DAILY 08/15/24 08/15/24 extended release dulaglutide 3 mg/0.5 mL 3 mg subcut QWEEK 08/15/24 08/15/24 subcutaneous pen injector (Trulicity) hydromorphone 4 mg tablet 4 mg PO BID 08/15/24 08/15/24 lamotrigine 200 mg tablet 200 mg PO HS 08/15/24 08/15/24 levothyroxine 50 mcg tablet 50 mcg PO DAILY 08/15/24 08/15/24 metoprolol succinate 100 mg 100 mg PO DAILY 08/15/24 08/15/24 tablet,extended release 24 hr naproxen 500 mg tablet 500 mg PO BID 08/15/24 08/15/24 paroxetine HCl 40 mg tablet 40 mg PO DAILY 08/15/24 08/15/24 riboflavin (vitamin B2) 100 mg 200 mg PO BID 08/15/24 08/15/24 tablet (Vitamin B-2) rosuvastatin 10 mg tablet 10 mg PO HS 08/15/24 08/15/24 lamotrigine 100 mg tablet 50 mg (1/2 x 100 mg) PO DAILY #4 08/16/24 (Lamictal) tabs levetiracetam 500 mg tablet 750 mg (1.5 x 500 mg) PO BID #90 08/16/24 tabs docusate sodium 100 mg capsule 100 mg PO DAILY #30 caps 08/17/24 (Colace) Previous Rx's ?Medication ?Instructions ?Recorded aspirin 81 mg tablet,delayed 81 mg PO DAILY Prevent blood clot 09/30/19 release #14 tabs hydrocortisone 2.5 % topical cream 1 applic topical QID #30 grams 12/31/21 acetaminophen 500 mg capsule 1,000 mg (2 x 500 mg) PO Q8H PRN 05/13/22 PRN #30 caps magnesium oxide 400 mg (241.3 mg 400 mg PO HS #0 tabs 08/17/23 magnesium) tablet lamotrigine 100 mg tablet 50 mg (1/2 x 100 mg) PO DAILY #4 08/16/24 (Lamictal) tabs levetiracetam 500 mg tablet 750 mg (1.5 x 500 mg) PO BID #90 08/16/24 tabs docusate sodium 100 mg capsule 100 mg PO DAILY #30 caps 08/17/24 (Colace) Allergies Allergy/AdvReac Type Severity Reaction Status Date / Time Penicillins Allergy Severe throat Verified 08/05/24 18:29 closes Sulfa (Sulfonamide Allergy Mild Hives Verified 08/05/24 18:29 Antibiotics) General Stated Complaint: Seizure RENATO: 3 Review of Systems All systems reviewed & are unremarkable except as noted in HPI and below Cardiovascular Cardiovascular: Denies chest pain Gastrointestinal Gastrointestinal: Denies abdominal pain Neurologic Neurologic: Reports as per HPI Exam Const General: cooperative HENMT Head: normocephalic and atraumatic Eyes Conjunctivae: normal conjunctivae Sclera: normal sclerae Pupils: PERRL Neck Neck: trachea midline and supple Resp Auscultation: clear to auscultation bilaterally, no rales, no rhonchi and no wheezes Cardio Rate: regular rate and not tachycardic Rhythm: regular rhythm GI Palpation: soft, not firm, no guarding, no masses, not rigid and nontender Skin General skin exam: no rashes or lesions noted Neuro General: patient alert, patient awake and tone normal Cognition: abnormal cognition (somnolent) Speech: abnormal speech slurred Motor: strength 5/5 throughout Sensory Exam: no sensory deficits noted Extrem General: no edema Course Vital Signs Vital signs: Vital Signs Temperature 36.8 C 08/15/24 11:47 Pulse 84 08/15/24 11:47 Blood Pressure 115/76 08/15/24 11:47 Pulse Oximetry 95 08/15/24 11:47 Temperature 36.8 C 08/15/24 11:47 Pulse 75 08/15/24 14:18 Pulse 78 08/15/24 14:18 Respiratory Rate 29 H 08/15/24 14:18 Respiratory Effort Normal 08/15/24 12:04 Respiratory Depth Normal 08/15/24 12:02 Blood Pressure 121/73 08/15/24 14:18 Blood Pressure Mean 85 08/15/24 14:18 Pulse Oximetry 96 08/15/24 14:18 Oxygen Delivery Method Room Air 08/15/24 11:47 Oxygen Flow Rate 0 08/15/24 11:47 Pain Level 0 08/15/24 11:47 Lab/Test Results Lab/Test Results: Laboratory Tests Range/Units 08/15/24 08/15/24 12:00 13:30 WBC (4.4-10.8) 10^3/uL 7.69 RBC (3.93-5.22) 10^6/uL 4.82 Hgb (11.2-15.7) g/dL 14.9 Hct (36.0-46.0) % 44.7 MCV (80-95) fL 93 MCH (27.0-33.0) pg 30.9 MCHC (32.0-36.0) % 33.3 RDW (11.7-14.6) % 11.9 Plt Count (130-400) 10^3/uL 193 MPV (8.0-11.0) fL 10.2 Immature Gran % % 0.1 Neutrophils % % 58.1 Lymphocytes % % 33.4 Monocytes % % 5.3 Eosinophils % % 2.3 Basophils % % 0.8 Nucleated RBC % (0.0-0.3) % 0.0 Absolute Neutrophils (1.2-6.7) 10^3/uL 4.46 Absolute Lymphocytes (1.2-3.4) 10^3/uL 2.57 Absolute Monocytes (0.1-0.8) 10^3/uL 0.41 Absolute Eosinophils (0.0-0.7) 10^3/uL 0.18 Absolute Basophils (0.0-0.2) 10^3/uL 0.06 Sodium (136-145) mmol/L 139 Potassium (3.5-5.1) mmol/L 4.3 Chloride (98-107) mmol/L 103 Carbon Dioxide (21.0-32.0) mmol/L 29.6 Anion Gap (3-11) mmol/L 6.4 BUN (7-18) mg/dL 21 H Creatinine (0.55-1.02) mg/dL 0.8 Est GFR (CKD-EPI 2020) (mL/min/1.73m2) 90.27 Glucose (74-106) mg/dL 79 Calcium (8.5-10.1) mg/dL 9.2 Total Bilirubin (0.2-1.0) mg/dL 0.44 AST (15-37) U/L 27 ALT (14-59) U/L 29 Alkaline Phosphatase (46-116) U/L 51 Total Protein (6.4-8.2) g/dL 6.8 Albumin (3.4-5.0) g/dL 3.5 TSH (0.36-3.74) uIU/mL 0.62 Urine Opiates Screen (Negative) Negative Urine Methadone Screen (Negative) Negative Ur Barbiturates Screen (Negative) Negative Ur Tricyclics Screen (Negative) Negative Ur Amphetamines Screen (Negative) Negative U Benzodiazepines Scrn (Negative) Positive A Urine Cocaine Screen (Negative) Negative Ur THC Screen (Negative) Negative Medical Decision Making 49-year-old female with multimedical problems including history of seizure disorder, compliant with Keppra, here after multiple seizures as, witnessed, generalized, now with altered mental status, no focal neurologic deficits. Patient received midazolam by EMS. Suspect altered mental status related to postictal versus side effect of midazolam. Plan to give Keppra bolus [address] of the head was interpreted by radiology: No acute intracranial process. Labs reviewed and nondiagnostic. Given mulitple seizures, plan to hospitalize for continued monitoring. Lab Data Lab results reviewed: Yes I reviewed the patient's lab results. Labs: Laboratory Tests Range/Units 08/15/24 08/15/24 12:00 13:30 WBC (4.4-10.8) 10^3/uL 7.69 RBC (3.93-5.22) 10^6/uL 4.82 Hgb (11.2-15.7) g/dL 14.9 Hct (36.0-46.0) % 44.7 MCV (80-95) fL 93 MCH (27.0-33.0) pg 30.9 MCHC (32.0-36.0) % 33.3 RDW (11.7-14.6) % 11.9 Plt Count (130-400) 10^3/uL 193 MPV (8.0-11.0) fL 10.2 Immature Gran % % 0.1 Neutrophils % % 58.1 Lymphocytes % % 33.4 Monocytes % % 5.3 Eosinophils % % 2.3 Basophils % % 0.8 Nucleated RBC % (0.0-0.3) % 0.0 Absolute Neutrophils (1.2-6.7) 10^3/uL 4.46 Absolute Lymphocytes (1.2-3.4) 10^3/uL 2.57 Absolute Monocytes (0.1-0.8) 10^3/uL 0.41 Absolute Eosinophils (0.0-0.7) 10^3/uL 0.18 Absolute Basophils (0.0-0.2) 10^3/uL 0.06 Sodium (136-145) mmol/L 139 Potassium (3.5-5.1) mmol/L 4.3 Chloride (98-107) mmol/L 103 Carbon Dioxide (21.0-32.0) mmol/L 29.6 Anion Gap (3-11) mmol/L 6.4 BUN (7-18) mg/dL 21 H Creatinine (0.55-1.02) mg/dL 0.8 Est GFR (CKD-EPI 2020) (mL/min/1.73m2) 90.27 Glucose (74-106) mg/dL 79 Calcium (8.5-10.1) mg/dL 9.2 Total Bilirubin (0.2-1.0) mg/dL 0.44 AST (15-37) U/L 27 ALT (14-59) U/L 29 Alkaline Phosphatase (46-116) U/L 51 Total Protein (6.4-8.2) g/dL 6.8 Albumin (3.4-5.0) g/dL 3.5 TSH (0.36-3.74) uIU/mL 0.62 Urine Opiates Screen (Negative) Negative Urine Methadone Screen (Negative) Negative Ur Barbiturates Screen (Negative) Negative Ur Tricyclics Screen (Negative) Negative Ur Amphetamines Screen (Negative) Negative U Benzodiazepines Scrn (Negative) Positive A Urine Cocaine Screen (Negative) Negative Ur THC Screen (Negative) Negative Quality:SDOH Health Related Social Needs: No Data to Display PFSH All Active Problems (Updated 08/18/24 @ 00:07 by SHARMAINE ECHOLS) Contraindication to deep vein thrombosis (DVT) prophylaxis (Acute) Seizure (Acute) Intentional benzodiazepine overdose (Acute) Patellofemoral arthritis of left knee (Acute) Pulmonary hypertension (Chronic) Acute respiratory failure with hypoxia (Acute) Pulmonary edema (Acute) Acute respiratory distress (Acute) COVID-19 (Acute) Bilateral carpal tunnel syndrome (Acute) S/P R ECTR: 05/13/2022 Amplified musculoskeletal pain (Acute) Tendonitis of long head of biceps brachii of right shoulder (Acute) Bursitis of right shoulder (Acute) Traumatic tear of right rotator cuff (Acute) Calcific tendinitis of right shoulder (Acute) 40mg depo-medrol injection: 02/11/2022 Lateral epicondylitis of right elbow (Acute) 40mg depo-medrol injection: 02/11/2022 Hematest positive stools (Acute) Cardiomyopathy (Chronic) last echocardiogram 01/27/2019, LVEF 50-55%, no regional wall motion abnormalities, mild LVH, mild MR; normal RV size and function Bipolar disorder (Chronic) 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 (Acute 01/25/14) Atypical chest pain (Acute) Type 2 diabetes mellitus (Chronic) Palpitations (Acute) Spell of altered consciousness (Acute) Elevated brain natriuretic peptide (BNP) level (Acute) Chest pain (Acute) Screening for colon cancer (Acute) Tobacco use (Acute) Fecal occult blood test positive (Acute) Medical History Myalgia Urinary incontinence Fatigue Shortness of breath Dizziness, nonspecific Orthostasis Elbow fracture, right Unresponsive episode Hyperthyroidism Carpal tunnel syndrome, left Impingement syndrome of left shoulder (~03/2019) Left rotator cuff tear (~03/2019) Tendinitis of long head of biceps brachii of left shoulder (~03/2019) Bursitis of left shoulder (~03/2019) Cervical radiculopathy bilateral Acute kidney injury DVT prophylaxis Discharge planning issues Dyspnea 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) Chronic migraine (03/07/15) Medication overuse headache (03/07/15) Migraine headache with aura (03/07/15) Migraine headache without aura (03/07/15) control (01/25/14) Dehydration Suicidal ideation Change in mental status Tachycardia Splenomegaly Lactose intolerance Hyperlipidemia Depression Anxiety Chronic pain syndrome CAD (coronary artery disease) mild non-obstructive disease per cardiac cath report from [facility] [place] 09/07/2013, more recent repeat cath unchanged but with pulmonary HTN Morbid obesity Diabetes Polycystic ovaries Surgical History S/P hysterectomy History of arthroscopy of left shoulder Hx of cardiac catheterization 08/2021-no stent placed History of endometrial ablation History of section x2 Previous back surgery Social History Smoking/Tobacco Use Status: Former Tobacco Use Quit status: quit date established Smoking risk assessment performed?: Yes Alcohol Intake: never Drug use: Never Substance use type: does not use Housing: apartment Number of Children: 3 Current gender identity: female What is your relationship status?: Panel score (0-1 are the most socially isolated patients): 0 What type of physical activity do you participate in: none Do you feel safe at home: Yes Do you feel safe in your relationship?: Yes Female Reproductive History Menstrual control method: permanent sterilization
--- NOTE | 2024-08-15 15:57 | HPE_ITS ---
Date of service: 08/15/24 Time of Service: 16:15 Assessment and Plan Assessment and plan (1) Seizure: Status: Acute Assessment and plan: Already on Keppra at home Keppra 1 gm IV in ED Will continue the dosing Q12 h Keppra and Lamictal levels pending Continue home lamictal dose Tele-neurology consult with Dr. Watkins from [facility] ? Load with a total of 200 mg of IV Keppra?1 more to be given ? Increase Lamictal by 50 mg AM every week until maximum dose of 200 mg for the morning has been reach- then patient would be on 200mg in AM and 200 mg at HS - With max dose of lamictal - Neurologist or OPT provider should discontinue Keppra: patient reported tiredness with Keppra- not conducive of compliance -EEG - MRI w and w/o - No driving for 6 months On opiods at home chronically for back pain- will continue inpatient d/t risk of seizures with opioids -Might need reviewing with opt pain team (2) Type 2 diabetes mellitus: Status: Chronic Assessment and plan: A1C 5.6 in 01/2024 Gluc AC and HS Continue home medicine regimen Trulicity not due before Qualifiers: Diabetes mellitus complication status: without complication 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 Clemente History of Present Illness History of Present Illness Chief Complaint: Seizure Narrative: This 49 years old female patient with a past medical history of seizure disorder on Lamictal and Keppra, pulmonary hypertension, past intentional benzodiazepine overdose, CAD, diabetes presented to the ED at [facility] for evaluation of seizures. Patient reportedly having multiple witnessed generalized seizures lasting longer than 2-minute this morning; EMS witnessed 1 seizure administer midazolam 10 mg the patient. On presentation to the ED patient was altered and fatigue but no focal deficit as per ED provider's assessment. Patient is also still reporting mild persistent right frontal headache starting prior to seizures. Blood work in the ED was asked not significant for any abnormality. The head CT was negative for any acute intracranial process. The patient received Keppra 1 g IV in the ED; a level was sent. Teleneuro consultation was initiated and pending. The hospitalist was consulted and the patient was admitted for evaluation and management of seizures. When met, the patient was alert, vague about the date and slow to follow commands. The patient reported initial aura prior to seizure including change in vision such as sparkles, fainting sensation, a feeling of nystagmus and dissociation. The patient also reported urinary incontinence at the time of the seizures but no fecal incontinence. Patient denied any other pain besides the headache. Patient denied nausea vomiting and dysuria. Patient confirms her full CODE STATUS. Review of Systems All systems reviewed & are unremarkable except as noted in HPI and below PFSH All Active Problems (Updated 08/15/24 @ 17:05 by Diane Blas APRN) Contraindication to deep vein thrombosis (DVT) prophylaxis (Acute) Seizure (Acute) Intentional benzodiazepine overdose (Acute) Patellofemoral arthritis of left knee (Acute) Pulmonary hypertension (Chronic) Acute respiratory failure with hypoxia (Acute) Pulmonary edema (Acute) Acute respiratory distress (Acute) COVID-19 (Acute) Bilateral carpal tunnel syndrome (Acute) S/P R ECTR: 05/13/2022 Amplified musculoskeletal pain (Acute) Tendonitis of long head of biceps brachii of right shoulder (Acute) Bursitis of right shoulder (Acute) Traumatic tear of right rotator cuff (Acute) Calcific tendinitis of right shoulder (Acute) 40mg depo-medrol injection: 02/11/2022 Lateral epicondylitis of right elbow (Acute) 40mg depo-medrol injection: 02/11/2022 Hematest positive stools (Acute) Cardiomyopathy (Chronic) last echocardiogram 01/27/2019, LVEF 50-55%, no regional wall motion abnormalities, mild LVH, mild MR; normal RV size and function Bipolar disorder (Chronic) 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 (Acute 01/25/14) Atypical chest pain (Acute) Type 2 diabetes mellitus (Chronic) Palpitations (Acute) Spell of altered consciousness (Acute) Elevated brain natriuretic peptide (BNP) level (Acute) Chest pain (Acute) Screening for colon cancer (Acute) Tobacco use (Acute) Fecal occult blood test positive (Acute) Medical History Myalgia Urinary incontinence Fatigue Shortness of breath Dizziness, nonspecific Orthostasis Elbow fracture, right Unresponsive episode Hyperthyroidism Carpal tunnel syndrome, left Impingement syndrome of left shoulder (~03/2019) Left rotator cuff tear (~03/2019) Tendinitis of long head of biceps brachii of left shoulder (~03/2019) Bursitis of left shoulder (~03/2019) Cervical radiculopathy bilateral Acute kidney injury DVT prophylaxis Discharge planning issues Dyspnea 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) Chronic migraine (03/07/15) Medication overuse headache (03/07/15) Migraine headache with aura (03/07/15) Migraine headache without aura (03/07/15) control (01/25/14) Dehydration Suicidal ideation Change in mental status Tachycardia Splenomegaly Lactose intolerance Hyperlipidemia Depression Anxiety Chronic pain syndrome CAD (coronary artery disease) mild non-obstructive disease [place] [facility] [place] more recent repeat cath unchanged but with pulmonary HTN Morbid obesity Diabetes Polycystic ovaries Surgical History S/P hysterectomy History of arthroscopy of left shoulder Hx of cardiac catheterization 08/2021-no stent placed History of endometrial ablation History of section x2 Previous back surgery Social History Smoking/Tobacco Use Status: Former Tobacco Use Quit status: quit date established Smoking risk assessment performed?: Yes Alcohol Intake: never Drug use: Never Substance use type: does not use Housing: apartment Number of Children: 3 Current gender identity: female What is your relationship status?: Panel score (0-1 are the most socially isolated patients): 0 What type of physical activity do you participate in: none Do you feel safe at home: Yes Do you feel safe in your relationship?: Yes Female Reproductive History Menstrual control method: permanent sterilization Meds Allergies and Home Medications Allergies Allergy/AdvReac Type Severity Reaction Status Date / Time Penicillins Allergy Severe throat Verified 08/05/24 18:29 closes Sulfa (Sulfonamide Allergy Mild Hives Verified 08/05/24 18:29 Antibiotics) lactose AdvReac Diarrhea Verified 08/05/24 18:29 Home Medications ?Medication ?Instructions ?Recorded ?Confirmed ?Type levothyroxine 25 mcg tablet 50 mcg PO HS 03/05/17 08/15/24 History (Synthroid) albuterol sulfate 90 mcg/actuation 2 puff inhalation QID PRN 03/10/19 08/15/24 History aerosol inhaler (Ventolin HFA) naloxone 4 mg/actuation nasal 1 spray intranasal ONCE PRN 03/10/19 08/15/24 History spray (Narcan) omeprazole 20 mg capsule,delayed 20 mg PO DAILY 03/10/19 08/15/24 History release prochlorperazine maleate 10 mg 10 mg PO DAILY PRN Headache 03/10/19 08/15/24 History tablet aspirin 81 mg tablet,delayed 81 mg PO DAILY Prevent blood clot 09/30/19 08/15/24 Rx release #14 tabs polyethylene glycol 3350 17 17 g PO DAILY PRN 12/22/19 08/15/24 History gram/dose oral powder naratriptan 2.5 mg tablet 2.5 mg PO BID PRN 03/27/20 08/15/24 History estradiol 1 mg tablet See Rx Instructions .Route .COMPLEX 06/10/21 08/15/24 History cholecalciferol (vitamin D3) 50 50 mcg PO DAILY 11/21/21 08/15/24 History mcg (2,000 unit) capsule hydrocortisone 2.5 % topical cream 1 applic topical QID #30 grams 12/31/21 08/15/24 Rx acetaminophen 500 mg capsule 1,000 mg (2 x 500 mg) PO Q8H PRN 05/13/22 08/15/24 Rx PRN #30 caps clonazepam 1 mg tablet 1 mg PO BID PRN 11/14/22 08/15/24 History melatonin 10 mg tablet 10 mg PO HS PRN 11/14/22 08/15/24 History loratadine 10 mg capsule 10 mg PO DAILY 03/03/23 08/15/24 History cyanocobalamin (vitamin B-12) 1,000 mcg PO DAILY 08/13/23 08/15/24 History 1,000 mcg tablet dapagliflozin propanediol 5 mg 5 mg PO DAILY 08/13/23 08/15/24 History tablet (Farxiga) icosapent ethyl 1 gram capsule 2 g PO BID 08/13/23 08/15/24 History (Vascepa) pregabalin 100 mg capsule 100 mg PO TID 08/13/23 08/15/24 History sacubitril 97 mg-valsartan 103 mg 1 tab PO BID 08/13/23 08/15/24 History tablet (Entresto) magnesium oxide 400 mg (241.3 mg 400 mg PO HS #0 tabs 08/17/23 08/15/24 Rx magnesium) tablet bupropion HCl 150 mg 24 hr tablet, 150 mg PO BID 01/07/24 08/15/24 History extended release mirabegron 25 mg tablet,extended 25 mg PO Q24H 08/05/24 08/15/24 History release 24 hr (Myrbetriq) vortioxetine 20 mg tablet 20 mg PO DAILY 08/05/24 08/15/24 History (Trintellix) bupropion HCl 300 mg 24 hr tablet, 300 mg PO DAILY 08/15/24 08/15/24 History extended release dulaglutide 3 mg/0.5 mL 3 mg subcut QWEEK 08/15/24 08/15/24 History subcutaneous pen injector (Trulicity) hydromorphone 4 mg tablet 4 mg PO BID 08/15/24 08/15/24 History lamotrigine 200 mg tablet 200 mg PO HS 08/15/24 08/15/24 History levetiracetam 500 mg tablet 500 mg PO BID 08/15/24 08/15/24 History levothyroxine 50 mcg tablet 50 mcg PO DAILY 08/15/24 08/15/24 History metoprolol succinate 100 mg 100 mg PO DAILY 08/15/24 08/15/24 History tablet,extended release 24 hr naproxen 500 mg tablet 500 mg PO BID 08/15/24 08/15/24 History paroxetine HCl 40 mg tablet 40 mg PO DAILY 08/15/24 08/15/24 History riboflavin (vitamin B2) 100 mg 200 mg PO BID 08/15/24 08/15/24 History tablet (Vitamin B-2) rosuvastatin 10 mg tablet 10 mg PO HS 08/15/24 08/15/24 History Exam Narrative Exam Narrative: Constitutional The patient is slow to follow directions, ataxia notes s/p seizures- feeling out of it , move all 4 extremities The patient is without acute distress HENMT: Head is atraumatic, normocephalic, no lymphadenopathy. Facial structures with normal appearance Eyes: Well aligned, intact ROM, no nystagmus Neck: Normal ROM, no meningeal signs Neuro:alert and oriented to self, person, place and situation. No neurological focal deficit, PERRLA on ambient light Chest:Chest is symmetrical and normal appearance Resp: Speaks in full sentences, unlabored breathing, clear lung bilaterally Cardio: regular rhythm, S1, S2, bilateral radial and dorsalis pedis pulses are positive GI: Abdomen is not distended, soft and non tender, bowel sounds are present : Negative Costovertebral angle tenderness, Back/spine/Pelvis: No back tenderness, normal alignment Integumentary: No skin lesions or rash Extremities: strength 4/5 to bilateral lower and upper extremities Psych: RASS 0, congruent mood and normal affect. Results Labs 08/15/24 12:00 08/15/24 12:00 Labs: Laboratory Results - last 24 hr 08/15/24 08/15/24 12:00 13:30 WBC 7.69 RBC 4.82 Hgb 14.9 Hct 44.7 MCV 93 MCH 30.9 MCHC 33.3 RDW 11.9 Plt Count 193 MPV 10.2 Immature Gran % 0.1 Neutrophils % 58.1 Lymphocytes % 33.4 Monocytes % 5.3 Eosinophils % 2.3 Basophils % 0.8 Nucleated RBC % 0.0 Absolute Neutrophils 4.46 Absolute Lymphocytes 2.57 Absolute Monocytes 0.41 Absolute Eosinophils 0.18 Absolute Basophils 0.06 Sodium 139 Potassium 4.3 Chloride 103 Carbon Dioxide 29.6 Anion Gap 6.4 BUN 21 H Creatinine 0.8 Est GFR (CKD-EPI 2020) 90.27 Glucose 79 Calcium 9.2 Total Bilirubin 0.44 AST 27 ALT 29 Alkaline Phosphatase 51 Total Protein 6.8 Albumin 3.5 TSH 0.62 Urine Opiates Screen Negative Urine Methadone Screen Negative Ur Barbiturates Screen Negative Ur Tricyclics Screen Negative Ur Amphetamines Screen Negative U Benzodiazepines Scrn Positive A Urine Cocaine Screen Negative Ur THC Screen Negative Last Vital Signs Temp 36.8 C 08/15/24 11:47 Pulse 76 08/15/24 15:31 Resp 13 08/15/24 15:40 BP 116/68 08/15/24 15:31 Pulse Ox 93 08/15/24 15:40 Time Spent Time spent with Patient: >75 minutes Time was spent: preparing to see the patient(eg.review tests), obtaining and/or reviewing separately otained hiistory, ordering medications,tests, procedures, referring, communicating with other health critical care unit manager, indepentently interpreting results, counseling the patient and care coordination
--- OUTSIDE RECORDS SUMMARY | 2024-08-15 16:56 | XMS_ITS | Continuity of Care Document ---
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 Name Role Phone Edie Ellis Primary Care Physician [phone] Encounter [facility] [id number] Date(s): 07/19/24 - 07/19/24 [place] [id number] Encounter Diagnosis Epilepsy, unspecified, not intractable, without status epilepticus(Discharge Diagnosis) - 07/19/24 Discharge Disposition: Home or Self Care Attending Physician: Shola Song MD Admitting Physician: Shola Song MD Referring Physician: Edie Ellis Allergies, Adverse Reactions, Alerts Substance Criticality Severity Reaction Reaction Severity Status penicillin Low criticality Mild Act ck sulfamethoxazole-trim ethoprim SS Unable to assess criticality Unknown Active Functional Status 07/19/24 COVID-19 Screening None Family Member Travel History No recent t ravel Recent Travel History No recent travel Medications hydrOXYzine hydrochloride 25 mg oral tablet TAKE ONE TABLET BY MOUTH THREE TIMES A DAY NEEDED FOR ANXIETY Start Date: 07/19/24 Status: Ordered lamoTRIgine 25 mg oral tablet 25 mg = 1 tab, Oral, BID, # 60 tab, 0 Refill(s) Start Date: 07/19/24 Status: Ordered levETIRAcetam 500 mg oral tablet 500 mg = 1 tab, Oral, BID, # 60 tab, 0 Refill(s), 08/17/24 8:16:00 PM CDT, Pharmacy: [id number], 162.56, cm, 07/19/24 18:34:00 EDT, Height, 81.65, kg, 07/19/24 18:40:00 EDT, Weight Dosing Start Date: 07/19/24 Stop Date: 08/17/24 Status: Ordered PARoxetine 40 mg oral tablet TAKE ONE TABLET BY MOUTH EVERY DAY Start Date: 07/19/24 Status: Ordered Trintellix 20 mg oral tablet TAKE ONE TABLET BY MOUTH EVERY DAY Start Date: 07/19/24 Status: Ordered valACYclovir 500 mg oral tablet TAKE 4 TABLETS BY MOUTH EVERY 12 HOURS FOR TWO DOSES NEEDED FOR COLD SORE Start Date: 07/19/24 Status: Ordered Mental Status 07/19/24 Eye Opening Response Dewayne Spontaneous ly Best Verbal Response Dewayne Oriented Best Motor Response Dewayne Obeys comman ds Hamer Coma Score 15 Results Laboratory List Name Date Automated Diff 07/19/24 CBC w/ Diff 07/19/24 Comprehensive Metabolic Panel 07/19/24 Most recent to oldest [Reference Range]: 1 WBC [4.80-10.80 x10^3/mcL] 7.27 x10^3/mc L (07/19/24 7:49 PM) RBC [3.90-5.03 x10^6/mcL] 4.67 x10^6/mcL (07/19/24 7:49 PM) Neutro Auto [40.0-74.0 /100(WBCs)] 53.6 /100(WBCs) (07/19/24 7:49 PM) Lymph Auto [19.0-48.0 /100(WBCs)] 38.7 / 100(WBCs) (07/19/24 7:49 PM) [place] Auto [3.0-10.0 /100(WBCs)] 4.7 /100 (WBCs) (07/19/24 7:49 PM) Basophil Auto [0.00-2.00 /100(WBCs)] 0.6 0 /100(WBCs) (07/19/24 7:49 PM) BUN [6.0-20.0 mg/dL] 16.3 mg/dL (07/19/24 7:49 PM) Glucose Level [70-100 mg/dL] 94 mg/dL (07/19/24 7:49 PM) Potassium Level [3.5-5.0 mmol/L] 4.2 mmo l/L (07/19/24 7:49 PM) Baso Absolute [0.00-0.20 x10^3/mcL] 0.04 x10^3/mcL (07/19/24 7:49 PM) MCV [81.0-99.0 fL] 92.1 fL (07/19/24 7:49 PM) AST [10-35 unit/L] 22 unit/L (07/19/24 7:49 PM) ALT [5-35 unit/L] 14 unit/L (07/19/24 7:49 PM) MCHC [33.0-36.0 g/dL] 34.0 g/dL (07/19/24 7:49 PM) Sodium Level [136-145 mmol/L] 136 mmol/L (07/19/24 7:49 PM) Lymph Absolute [1.20-3.40 x10^3/mcL] 2.8 1 x10^3/mcL (07/19/24 7:49 PM) Hct [36.0-46.0 %] 43.0 % (07/19/24 7:49 PM) Calcium Level [8.6-10.0 mg/dL] 9.4 mg/dL (07/19/24 7:49 PM) [place] Absolute [0.11-0.70 x10^3/mcL] 0.34 x10^3/mcL (07/19/24 7:49 PM) Albumin Level [3.5-5.2 g/dL] 4.0 g/dL (07/19/24 7:49 PM) Protein Total [6.1-8.0 g/dL] 6.4 g/dL (07/19/24 7:49 PM) MCH [27.1-32.0 pg] 31.3 pg (07/19/24 7:49 PM) Neutro Absolute [1.20-6.70 x10^3/mcL] 3. 90 x10^3/mcL (07/19/24 7:49 PM) Bilirubin Total [<=1.20 mg/dL] 0.28 mg/d L (07/19/24 7:49 PM) Hgb [12.0-15.5 g/dL] 14.6 g/dL (07/19/24 7:49 PM) Alk Phos [35-104 unit/L] 51 unit/L (07/19/24 7:49 PM) MPV [6.0-10.0 fL] 10.0 fL (07/19/24 7:49 PM) Platelets [150-400 x10^3/mcL] 188 x10^3/ mcL (07/19/24 7:49 PM) CO2 [22-29 mmol/L] 25 mmol/L (07/19/24 7:49 PM) Eos Absolute [0.00-0.70 x10^3/mcL] 0.17 x10^3/mcL (07/19/24 7:49 PM) eGFR AA [>=60 mL/min/1.73 m2] 129 mL/min /1.73 m2 (07/19/24 7:49 PM) Chloride Level [98-107 mmol/L] 101 mmol/ L (07/19/24 7:49 PM) A/G Ratio 1.7 *NA* (07/19/24 7:49 PM) BUN/Creat Ratio 27 ratio *NA* (07/19/24 7:49 PM) Imm Gran Absolute [0.00-0.04 x10^3/mcL] 0.01 x10^3/mcL (07/19/24 7:49 PM) Imm Gran Auto 0.1 /100(WBCs) *NA* (07/19/24 7:49 PM) Creatinine Level [0.50-0.90 mg/dL] 0.60 mg/dL (07/19/24 7:49 PM) RDW-CV [11.6-14.8 %] 12.2 % (07/19/24 7:49 PM) Anion Gap [5-15 mmol/L] 14 mmol/L (07/19/24 7:49 PM) Eos, Auto [1.0-7.0 /100(WBCs)] 2.3 /100( WBCs) (07/19/24 7:49 PM) Radiology Reports * Exam Date Time Procedure Performing Provider Status 07/19/24 7:[address] Head w/o Contrast Alea Giron; Eleazar (Verified) Notes: (CT Head w/o Contrast) Reason For Exam: concussion w neg head ct s/p trauma 2 wks ago, vomiting, 4rth lifetime siezure today CT Head w/o Contrast EXAMINATION: CT Head w/o Contrast CLINICAL HISTORY: concussion w neg head ct s/p trauma 2 wks ago, vomiting, 4rth lifetime siezure today TECHNIQUE: CT head performed without intravenous contrast administration. COMPARISON: None FINDINGS: Normal ventricles and sulci. No masses, mass effect or extra-axial collections. No acute hemorrhages. Intact quinonez-white differentiation. The visualized paranasal sinuses are clear. Clear otomastoid spaces. No aggressive osseous lesions. IMPRESSION: No acute intracranial processes. Thank you for letting us participate in the care of this patient. If you are a health care provider and have any questions regarding this report, please contact the number below. For patients who have questions please contact the health career representative that requested your imaging first. Final Dictated by: Louisa Pearl Dictated DT/TM: 07/19/2024 7:47 pm Signed by: Ryanne, Generated Signed (Electronic Signature): 07/19/2024 7:38 pm Transcribed by: [facility] Vital Signs Most recent to oldest [Reference Range]: 1 2 3 Temperature Temporal Artery [36-38 Deg C] 37.3 Deg C (07/19/24 6:34 PM) Peripheral Pulse Rate [60-100 bpm] 84 bpm (07/19/24 9:18 PM) 84 bpm (07/19/24 8:24 PM) 88 bpm (07/19/24 8:10 PM) Respiratory Rate [12-24 br/min] 16 br/min (07/19/24 9:18 PM) 16 br/min (07/19/24 8:24 PM) 16 br/min (07/19/24 8:10 PM) Blood Pressure [90-140/60-90 mmHg] 114/67mmHg (07/19/24 9:18 PM) 110/68mmHg (07/19/24 8:24 PM) 114/73mmHg (07/19/24 8:10 PM) Weight Dosing 81.650 kg (07/19/24 6:34 PM) Body Mass Index 30.9 kg/m2 (07/19/24 6:34 PM) Height 162.56 cm (07/19/24 6:34 PM) Weight 81.65 kg (07/19/24 6:34 PM) Social History Social History Type Response Tobacco Former tobacco user Tobacco Use:. Sex Female Hospital Discharge Instructions Patient Education 07/19/2024 20:18:42 Epilepsy, Pkcc-dw-Ghro Epilepsy Epilepsy is when a person keeps having seizures. A seizure is a burst of abnormal activity in the brain. This condition can cause problems such as: ??? A change in how you think or behave. ??? Trouble knowing what is happening. ??? Falls, accidents, and injury. ??? Sadness (depression). ??? Poor memory. In rare cases, this condition can be life-threatening. But most people with epilepsy lead normal lives. What are the causes? A head injury or an injury that happens at . ??? A high fever during childhood. ??? A stroke. ??? Bleeding into or around the brain. ??? Some medicines and drugs. ??? Having too little oxygen for a long time. ??? Abnormal brain development. ??? Conditions such as: ??? Brain infection. ??? Brain tumors. ??? Conditions that are passed from parent to child. Many times, the cause is not known. What are the signs or symptoms? Symptoms of a seizure vary from person to person. They may include: Symptoms during a seizure ??? Shaking with fast, jerky movements of muscles (convulsions). ??? Stiffness of the body. ??? Breathing problems. ??? Being mixed up (confused). ??? Staring or being hard to wake up (being unresponsive). ??? Head nodding, eye blinking, eye twitching, or fast eye movements. ??? Drooling, grunting, or making clicking sounds with your mouth. ??? Not being able to control when you pee or poop. Symptoms before a seizure ??? Feeling afraid, worried, or nervous. ??? Feeling like you may vomit. ??? Vertigo. This feels like: ??? You are moving when you are not. ??? Things around you are moving when they are not. ??? D??j?? vu. This is a feeling of having seen or heard something before. ??? Odd tastes or smells. ??? Changes in how you see, such as seeing flashing lights or spots. Symptoms after a seizure ??? Being confused. ??? Being sleepy. ??? A headache. ??? Sore muscles. How is this treated? Treatment can control seizures. It may include: ??? Taking medicines. ??? Having a device put in the chest (vagus nerve stimulator). ??? Brain surgery. ??? Having blood tests often. ??? Eating foods that are low in carbohydrates and high in fat (ketogenic diet). If you are diagnosed with this condition, you should start treatment as soon as you can. Follow these instructions at home: Medicines ??? Take trdm-hyy-xtixzhi and prescription medicines only as told by your doctor. ??? Avoid anything that may keep your medicine from working, such as alcohol. Activity ??? Get enough rest. ??? Follow your doctor's advice about driving, swimming, and doing other things that would be dangerous if you had a seizure. ??? If you live in the [place] ask your local department of [employer] about local driving laws for people with epilepsy. Teaching others ??? Teach friends and family what to do if you have a seizure. Tell them to: ??? Help you get down to the ground. ??? Put a pillow under your head and body. ??? Loosen any clothing around your neck. ??? Turn you on your side. ??? Stay with you until you are better. ??? Know whether or not you need emergency care. ??? Also, tell them what not to do if you have a seizure. Tell them: ??? They should not hold you down. ??? They should not put anything in your mouth. General instructions ??? Avoid things that cause you to have seizures. ??? Keep a seizure diary. Write down: ??? What you remember about each seizure. ??? What might have caused the seizure. ??? Keep all follow-up visits. Where to find more information ??? Epilepsy Foundation: epilepsy.com ??? International League Against Epilepsy: ilae.org Contact a doctor if: ??? You have a change in how often or when you have seizures. ??? You get an infection or start to feel sick. ??? You are not able to take your medicine. Get help right away if: ??? A seizure does not stop after 5 minutes. ??? You have more than one seizure in a row, and you do not have enough time between the seizures to feel better. ??? A seizure makes it harder to breathe. ??? A seizure is different from other seizures you have had. ??? A seizure makes you unable to speak or use a part of your body. ??? You did not wake up right away after a seizure. ??? You feel sad, and this does not get better. These symptoms may be an emergency. Get help right away. Call your local emergency services (755 int [place] ??? Do not wait to see if the symptoms will go away. ??? Do not drive yourself to the hospital. Get help right awayif you feel like you may hurt yourself or others, or have thoughts about taking your own life. Go to your nearest emergency room or: ??? Call your local emergency services (218 in the [place] ??? Call the National Suicide Prevention Lifeline at or 238 in the [place] This is open24 hours a day. ??? Text the Crisis Text Line at 266124. Summary ??? Epilepsy is when a person keeps having seizures. ??? Seizures can cause many symptoms, such as brief staring and shaking or jerky muscle movements. ??? Treatment can control seizures. Take xbsv-ypf-yptivyn and prescription medicines only as told by your doctor. ??? Follow your doctor's advice about driving, swimming, and doing other things that would be dangerous if you had a seizure. ??? Teach friends and family what to do if you have a seizure. This information is not intended to replace advice given to you by your health care provider. Make sure you discuss any questions you have with your health care provider. Document Revised: 06/04/2022 Document Reviewed: 05/13/2021 [employer] Patient Education ?? 2022 [employer] Follow Up Care 07/19/2024 18:26:39 With:Edie Ellis Address: [address] [place] [address] [place] [address]- When:1 to 2 weeks Comments:I have called [facility] neurology and they agree with starting you on a seizure medication. ??I will start you on Keppra otherwise known as levetiracetam.?? Take 500 mg pill??twice a day. ??I have given a 1 month supply. ??Please follow-up with Edie Ellis your PCP.?? I am calling the coverage for Dr. Javier tenorio to see if they might arrange an outpatient MRI??of your brain. ??Return here for recurrent seizure.?? [facility] will call you at [phone]??with an appointment to the epilepsy clinic.It is very important that you do not operate a motor vehicle or other machinery as you might havea seizure??and if this happens this will cause an accident which can cause harm to you or someone else.?This restriction usually goes on??until follow-up with neurology and/or??seizure-free for 6 months without changes to seizure medications Physician Emergency department Note * Shola Song MD: PERFORM Event Display: ED Note Physician Authored Date: [id number] RAMY BYRD :1975 Age:49 years Sex:Female Visit Date:07/19/2024 Primary Care Physician: Edie Ellis Basic Information Time Seen: Shola Song MD / 07/19/2024 18:31 Chief Complaint Patient arrived via [facility] with complaints of a near syncopal episode. She started feeling lighted and her assisted her to ground at [facility]. History Of Present Illness: This patient comes in??because of what sounds like likely syncope??while she was at the [facility].?? Before that, about??an hour and a half ago she was at the [employer] and felt her eyes do a funny dance which seem to jumble her vision??for about 5 seconds??and then that happened again??also at the [employer].?? She then went to the [facility]??and??felt better??but then when she bent over or wasthinking of bending over??to??look at that shampoos,??the next thing she knew she was on the floor with people around her.?? Evidently her was at her side and he eased her to the ground so that she did not??hit herself or have any injuries from falling. ??Ambulance was called and she was brought here.?? 2 weeks ago she had a tumble down a incline outside and came to a stop??by hitting herhead against a rock.?? She went [place]??and was evaluated with head CT and other CTs??and had a negative workup and was discharged home.?? She currently denies headache. ??She denies chest pain or difficulty breathing. ??She denies abdominal pain nausea,??but she did vomit once this morning. ??She is49 years old and has had previous??hysterectomy. ??She has no burning or frequency of urination. ??She has no flank pain. ??She has a couple scratches on her bartlett and feet from the tumble 2 weeks agobut no redness warmth and some swelling surrounding these.??//Now spoken with the patient's?? and daughter who witnessed the event.?? It now seems??that??she??was eased to the ground but had stiffness and shaking for a full minute and a half and now we have as well discovered that she has incontinence of urine evidence on her pants even though she did not realize it. ??Therefore this is very most likely a seizure. ??In further talking to them, this is the fourth or fifth??lifetime seizure this patient has had or likely seizure has had??over the last 15 years or so.?? She has not been on antiepileptics at any point. Physical Exam Vitals & Measurements T:??37.3?C ??(Temporal Artery)?? HR:??84??(Peripheral)?? RR:??16?? BP:??114/67?? SpO2:??97%?? HT:??162.56??cm?? WT:??81.65??kg?? BMI:??30.9?? O2 Therapy:??Room air?? Eyes: Pupils equally round.?? Extraocular movements intact. No periorbital swelling, redness or edema.?? Head / Face: No injuries, no lesions. Neck: supple. Respiratory: Clear to auscultation bilaterally, no increased work of breathing, no wheezing rhonchior stridor. Cardiac: Normal rate and regular rhythm without murmurs rubs or gallops.?Patient's heart rate isin the high 90s while sitting in bed and went up to 110 when I had her sit up??simply to listen to her lungs. Abdomen: Soft, nontender, nondistended with normal active bowel sounds. Extremities: Normal range of motion, no lesions, normal strength, no pain with range of motion. Skin: No lesions on visualized areas. Neurologic: Awake, alert, oriented, cranial nerves II through XII grossly intact, no deficits in strength, normal gait. Psychiatric: Calm, pleasant and interactive. Medical Decision Making: Patient has an excellent description based on eyewitness account of tonic-clonic seizure.?? This was a minute and a half of rigidity??with consistent??rigid shaking motions and loss of urine.?? Family believes this is the fourth or fifth time this has happened over the last 15 years.?? I loaded with 1.5 g of Keppra based on about a 20 mg/kg??dosing.?? I started Keppra 500 twice daily. ??I consulted with [facility] neurology and the patient will be called by the epilepsy clinic.?? She will returnhere for recurrent seizure. ??Her head CT is negative and her labs are normal.?? She had no furtherseizures,??here in the emergency department a totally benign exam with normal vital signs. ??She had no postictal state even upon arrival. Procedure No Qualifying Data Assessment/Plan 1.??Epilepsy, unspecified, not intractable, without status epilepticus??G40.909 Orders: levETIRAcetam 500 mg oral tablet, 500 mg = 1 tab, Oral, BID, # 60 tab, 0 Refill(s), 08/17/24 21:16:00 EDT, Pharmacy: [facility], 162.56, cm, 07/19/24 18:34:00 EDT, Height, 81.65, kg, 07/19/24 18:40:00 EDT, Weight Dosing Cardiac Monitoring, 07/19/24 19:13:00 EDT Diet Order, 07/19/24 19:13:00 EDT, NPO Discharge Patient, 07/19/24 21:15:00 EDT Vital Signs, 07/19/24 19:13:00 EDT, Stop date 07/19/24 19:13:00 EDT, Per Protocol Patient Education Epilepsy, Ngtt-er-Xadh Follow Up With When Contact Information Edie Ellis Within 1 to [address] [place] [id number]- Additional Instructions: I have called [facility] neurology and they agree with starting you on a seizure medication. ??I will start you on Keppra otherwise known as levetiracetam.?? Take 500 mg pill??twice a day. ??I have given a 1 month supply. ??Please follow-up with Edie Ellis your PCP.?? I am calling the coverage for Dr. Javier tenorio to see if they might arrange an outpatient MRI??of your brain. ??Return here for recurrent seizure.?? [facility] will call you at [phone]??with an appointment to the epilepsy clinic. ?? It is very important that you do not operate a motor vehicle or other machinery as you might have a seizure??and if this happens this will cause an accident which can cause harm to you or someone else.?This restriction usually goes on??until follow-up with neurology and/or??seizure-free for 6months without changes to seizure medications Medication Reconciliation New Prescription levETIRAcetam (levETIRAcetam 500 mg oral tablet)1 tab Oral (given by mouth) 2 times a day. Refills:0. ?? Unchanged hydrOXYzine (hydrOXYzine hydrochloride 25 mg oral tablet)TAKE ONE TABLET BY MOUTH THREE TIMES A DAYAS NEEDED FOR ANXIETY. ?? lamoTRIgine (lamoTRIgine 25 mg oral tablet)1 tab Oral (given by mouth) 2 times a day. ?? PARoxetine (PARoxetine 40 mg oral tablet)TAKE ONE TABLET BY MOUTH EVERY DAY. ?? valACYclovir (valACYclovir 500 mg oral tablet)TAKE 4 TABLETS BY MOUTH EVERY 12 HOURS FOR TWO DOSES NEEDED FOR COLD SORE. ?? vortioxetine (Trintellix 20 mg oral tablet)TAKE ONE TABLET BY MOUTH EVERY DAY. Problem List/Past Medical History Ongoing No qualifying data Historical No qualifying data Medication Administration Given levETIRAcetam, 1500 mg, IV Piggyback sodium chloride 0.9% bolus, 1000 mL, Hydration Bolus Allergies penicillin sulfamethoxazole-trimethoprim SS Social History Electronic Cigarette/Vaping Electronic Cigarette Use: Never. Tobacco Former tobacco user Tobacco Use:. Diagnostic Results CT Head w/o Contrast 07/19/2024 19:[address] Head w/o Contrast ?? 07/19/24 19:38:38 IMPRESSION: No acute intracranial processes. ?? Thank you for letting us participate in the care of this patient. If you are a health care provider and have any questions regarding this report, please contact the number below. For patients who have questions please contact the health career representative that requested your imaging first. ?? Electronically signed by: ?? Signed By: DomainUser, Generated Lab Results CBC and Differential?? LATEST RESULTS?? WBC?? 07/19/24 19:49?? 7.27?? RBC?? 07/19/24 19:49?? 4.67?? Hgb?? 07/19/24 19:49?? 14.6?? Hct?? 07/19/24 19:49?? 43.0?? MCV?? 07/19/24 19:49?? 92.1?? MCH?? 07/19/24 19:49?? 31.3?? MCHC?? 07/19/24 19:49?? 34.0?? RDW-CV?? 07/19/24 19:49?? 12.2?? Platelets?? 07/19/24 19:49?? 188?? MPV?? 07/19/24 19:49?? 10.0?? Neutro Auto?? 07/19/24 19:49?? 53.6?? Lymph Auto?? 07/19/24 19:49?? 38.7?? [place] Auto?? 07/19/24 19:49?? 4.7?? Eos, Auto?? 07/19/24 19:49?? 2.3?? Basophil Auto?? 07/19/24 19:49?? 0.60?? Imm Gran Auto?? 07/19/24 19:49?? 0.1?? Neutro Absolute?? 07/19/24 19:49?? 3.90?? Lymph Absolute?? 07/19/24 19:49?? 2.81?? [place] Absolute?? 07/19/24 19:49?? 0.34?? Eos Absolute?? 07/19/24 19:49?? 0.17?? Baso Absolute?? 07/19/24 19:49?? 0.04?? Imm Gran Absolute?? 07/19/24 19:49?? 0.01? Routine Chemistry?? LATEST RESULTS?? Glucose Level?? 07/19/24 19:49?? 94?? BUN?? 07/19/24 19:49?? 16.3?? Creatinine Level?? 07/19/24 19:49?? 0.60?? eGFR AA?? 07/19/24 19:49?? 129?? BUN/Creat Ratio?? 07/19/24 19:49?? 27?? Calcium Level?? 07/19/24 19:49?? 9.4?? CO2?? 07/19/24 19:49?? 25?? Chloride Level?? 07/19/24 19:49?? 101?? Sodium Level?? 07/19/24 19:49?? 136?? Potassium Level?? 07/19/24 19:49?? 4.2?? Anion Gap?? 07/19/24 19:49?? 14?? Alk Phos?? 07/19/24 19:49?? 51?? AST?? 07/19/24 19:49?? 22?? ALT?? 07/19/24 19:49?? 14?? Protein Total?? 07/19/24 19:49?? 6.4?? Albumin Level?? 07/19/24 19:49?? 4.0?? Bilirubin Total?? 07/19/24 19:49?? 0.28?? A/G Ratio?? 07/19/24 19:49?? 1.7? Electronically Signed on 07/19/2024 22:16 EDT Shola Song MD Emergency department Discharge instructions * Shola Song MD: PERFORM Event Display: ED Discharge Information Authored Date: [id number] RAMY BYRD :1975 Age:49 years Sex:Female Visit Date:07/19/2024 Primary Care Physician: Edie Ellis Discharge Instructions We would like to thank you for allowing us to assist you with your healthcare needs. The following includes patient education materials and information regarding your injury/illness. Diagnosis from Today's Visit Epilepsy, unspecified, not intractable, without status epilepticus Discharge Vitals Temperature??(Temporal Artery) 99.1 ??F (37.3 ??C) Heart Rate??(Peripheral) 84 Respiratory Rate?? 16 Blood Pressure?? 114/67?? SpO2?? 97% Height?? 64.00 in (162.56 cm) Weight?? 180.04 lb (81.65 kg) BMI?? 30.9 Allergies penicillin sulfamethoxazole-trimethoprim SS What to Do Next You Need to Schedule the Following Appointments Follow Up with??Edie Ellis When:??Within 1 to 2 weeks Why: I have called [facility] neurology and they agree with starting you on a seizure medication. ??I will start you on Keppra otherwise known as levetiracetam.?? Take 500 mg pill??twice a day. ??I have given a 1 month supply. ??Please follow- up with Edie Ellis your PCP.?? I am calling the coverage for Dr. Javier tenorio to see if they might arrange an outpatient MRI??of your brain. ??Return here for recurrent seizure.?? [facility] will call you at [phone]??with an appointment to the epilepsy clinic. ?? It is very important that you do not operate a motor vehicle or other machinery as you might have a seizure??and if this happens this will cause an accident which can cause harm to you or someone else.?This restriction usually goes on??until follow-up with neurology and/or??seizure-free for 6months without changes to seizure medications Where: [place] [id number]- You were treated today on an emergency basis; it may be vasquez to contact your primary care provider to notify them of your visit today. You may have been referred to your regular doctor or a specialist, please follow up as instructed. If your condition worsens or you can't get in to see the doctor, contact the Emergency Department. Medications What How Much When Instructions Next Dose New levETIRAcetam (levETIRAcetam 500 mg oral tablet) 1 tab Oral (given by mouth) 2 times a day Pickup at [facility] Pharmacy Information [facility]: [address] [facility] [place] [id number] [phone] Education Materials Epilepsy Epilepsy is when a person keeps having seizures. A seizure is a burst of abnormal activity in the brain. This condition can cause problems such as: ? A change in how you think or behave. ? Trouble knowing what is happening. ? Falls, accidents, and injury. ? Sadness (depression). ? Poor memory. In rare cases, this condition can be life-threatening. But most people with epilepsy lead normal lives. What are the causes? A head injury or an injury that happens at . ? A high fever during childhood. ? A stroke. ? Bleeding into or around the brain. ? Some medicines and drugs. ? Having too little oxygen for a long time. ? Abnormal brain development. ? Conditions such as: ? Brain infection. ? Brain tumors. ? Conditions that are passed from parent to child. Many times, the cause is not known. What are the signs or symptoms? Symptoms of a seizure vary from person to person. They may include: Symptoms during a seizure ? Shaking with fast, jerky movements of muscles (convulsions). ? Stiffness of the body. ? Breathing problems. ? Being mixed up (confused). ? Staring or being hard to wake up (being unresponsive). ? Head nodding, eye blinking, eye twitching, or fast eye movements. ? Drooling, grunting, or making clicking sounds with your mouth. ? Not being able to control when you pee or poop. Symptoms before a seizure ? Feeling afraid, worried, or nervous. ? Feeling like you may vomit. ? Vertigo. This feels like: ? You are moving when you are not. ? Things around you are moving when they are not. ? D??j?? vu. This is a feeling of having seen or heard something before. ? Odd tastes or smells. ? Changes in how you see, such as seeing flashing lights or spots. Symptoms after a seizure ? Being confused. ? Being sleepy. ? A headache. ? Sore muscles. How is this treated? Treatment can control seizures. It may include: ? Taking medicines. ? Having a device put in the chest (vagus nerve stimulator). ? Brain surgery. ? Having blood tests often. ? Eating foods that are low in carbohydrates and high in fat (ketogenic diet). If you are diagnosed with this condition, you should start treatment as soon as you can. Follow these instructions at home: Medicines ? Take bbcg-boy-jazqdix and prescription medicines only as told by your doctor. ? Avoid anything that may keep your medicine from working, such as alcohol. Activity ? Get enough rest. ? Follow your doctor's advice about driving, swimming, and doing other things that would be dangerousif you had a seizure. ? If you live in the [place] ask your local department of motor vehicles about local driving laws for people with epilepsy. Teaching others ? Teach friends and family what to do if you have a seizure. Tell them to: ? Help you get down to the ground. ? Put a pillow under your head and body. ? Loosen any clothing around your neck. ? Turn you on your side. ? Stay with you until you are better. ? Know whether or not you need emergency care. ? Also, tell them what not to do if you have a seizure. Tell them: ? They should not hold you down. ? They should not put anything in your mouth. General instructions ? Avoid things that cause you to have seizures. ? Keep a seizure diary. Write down: ? What you remember about each seizure. ? What might have caused the seizure. ? Keep all follow-up visits. Where to find more information ? Epilepsy Foundation: [employer] ? International League Against Epilepsy: ilae.org Contact a doctor if: ? You have a change in how often or when you have seizures. ? You get an infection or start to feel sick. ? You are not able to take your medicine. Get help right away if: ? A seizure does not stop after 5 minutes. ? You have more than one seizure in a row, and you do not have enough time between the seizures to feel better. ? A seizure makes it harder to breathe. ? A seizure is different from other seizures you have had. ? A seizure makes you unable to speak or use a part of your body. ? You did not wake up right away after a seizure. ? You feel sad, and this does not get better. These symptoms may be an emergency. Get help right away. Call your local emergency services ([address] int [place] ? Do not wait to see if the symptoms will go away. ? Do not drive yourself to the hospital. Get help right awayif you feel like you may hurt yourself or others, or have thoughts about taking your own life. Go to your nearest emergency room or: ? Call your local emergency services (771 in the [place] ? Call the National Suicide Prevention Lifeline at or 988 in the [place] This is open 24 hours a day. ? Text the Crisis Text Line at 637232. Summary ? Epilepsy is when a person keeps having seizures. ? Seizures can cause many symptoms, such as brief staring and shaking or jerky muscle movements. ? Treatment can control seizures. Take oldk-xgo-sgkrpso and prescription medicines only as told by your doctor. ? Follow your doctor's advice about driving, swimming, and doing other things that would be dangerousif you had a seizure. ? Teach friends and family what to do if you have a seizure. This information is not intended to replace advice given to you by your health care provider. Make sure you discuss any questions you have with your health care provider. Document Revised: 06/04/2022 Document Reviewed: 05/13/2021 [employer] Patient Education ?? 2022 [employer] Tests Performed Radiology CT Head w/o Contrast 07/19/2024 19:47 EDT Medications and Immunizations Administered Given levETIRAcetam, 1500 mg, IV Piggyback sodium chloride 0.9% bolus, 1000 mL, Hydration Bolus Lab Test Name Test Result Date/Time WBC 7.27 x10^3/mcL 07/19/2024 19:49 EDT RBC 4.67 x10^6/mcL 07/19/2024 19:49 EDT Hgb 14.6 g/dL 07/19/2024 19:49 EDT Hct 43.0 % 07/19/2024 19:49 EDT MCV 92.1 fL 07/19/2024 19:49 EDT MCH 31.3 pg 07/19/2024 19:49 EDT MCHC 34.0 g/dL 07/19/2024 19:49 EDT RDW-CV 12.2 % 07/19/2024 19:49 EDT Platelets 188 x10^3/mcL 07/19/2024 19:49 EDT MPV 10.0 fL 07/19/2024 19:49 EDT Neutro Auto 53.6 /100(WBCs) 07/19/2024 19:49 EDT Lymph Auto 38.7 /100(WBCs) 07/19/2024 19:49 EDT [place] Auto 4.7 /100(WBCs) 07/19/2024 19:49 EDT Eos, Auto 2.3 /100(WBCs) 07/19/2024 19:49 EDT Basophil Auto 0.60 /100(WBCs) 07/19/2024 19:49 EDT Imm Gran Auto 0.1 /100(WBCs) 07/19/2024 19:49 EDT Neutro Absolute 3.90 x10^3/mcL 07/19/2024 19:49 EDT Lymph Absolute 2.81 x10^3/mcL 07/19/2024 19:49 EDT [place] Absolute 0.34 x10^3/mcL 07/19/2024 19:49 EDT Eos Absolute 0.17 x10^3/mcL 07/19/2024 19:49 EDT Baso Absolute 0.04 x10^3/mcL 07/19/2024 19:49 EDT Imm Gran Absolute 0.01 x10^3/mcL 07/19/2024 19:49 EDT Glucose Level 94 mg/dL 07/19/2024 19:49 EDT BUN 16.3 mg/dL 07/19/2024 19:49 EDT Creatinine Level 0.60 mg/dL 07/19/2024 19:49 EDT eGFR AA 129 mL/min/1.73 m2 07/19/2024 19:49 EDT BUN/Creat Ratio 27 ratio 07/19/2024 19:49 EDT Calcium Level 9.4 mg/dL 07/19/2024 19:49 EDT CO2 25 mmol/L 07/19/2024 19:49 EDT Chloride Level 101 mmol/L 07/19/2024 19:49 EDT Sodium Level 136 mmol/L 07/19/2024 19:49 EDT Potassium Level 4.2 mmol/L 07/19/2024 19:49 EDT Anion Gap 14 mmol/L 07/19/2024 19:49 EDT Alk Phos 51 unit/L 07/19/2024 19:49 EDT AST 22 unit/L 07/19/2024 19:49 EDT ALT 14 unit/L 07/19/2024 19:49 EDT Protein Total 6.4 g/dL 07/19/2024 19:49 EDT Albumin Level 4.0 g/dL 07/19/2024 19:49 EDT Bilirubin Total 0.28 mg/dL 07/19/2024 19:49 EDT A/G Ratio 1.7 07/19/2024 19:49 EDT Patient/Machine Specialist Signature Patient Name:CARSON RAMY Smiley I have received this information and my questions have been answered. Patient/Machine Specialist Name: Patient/Machine Specialist Signature: Relationship to Patient: Witness Name/Signature: Date: Electronically Signed on 07/19/2024 21:18 EDT Shola Song MD Patient Care team information Care Team Personnel Name: Edie Ellis Position: No Access Member Role: Primary Care Physician Address: Address: [address] [place] [address] [place] [id number] [place] Care Team Related Persons Name: EARLINE BYRD
--- OUTSIDE RECORDS SUMMARY | 2024-08-15 16:56 | XMS_ITS | Continuity of Care Document ---
Author Organization Psych Address Unknown Care Team Providers Care Accountant Manager Name Role Phone EDIE KERR Primary Care Physician Encounter Date(s): 01/13/24 - 01/22/24 [address] [place], [place] [address] - Encounter Diagnosis Agoraphobia(Discharge Diagnosis) - 01/19/24 Diabetes(Discharge Diagnosis) - 01/14/24 Cardiomyopathy(Discharge Diagnosis) - 01/14/24 Social phobia(Discharge Diagnosis) - 01/19/24 Afib(Discharge Diagnosis) - 01/14/24 Hypotension(Discharge Diagnosis) - 01/19/24 Major depressive disorder, recurrent severe without psychotic features(Discharge Diagnosis) - 01/19/24 Discharge Disposition: Home or Self Care Attending Physician: CHALINO CONTRERAS NP Admitting Physician: CHALINO CONTRERAS NP Allergies, Adverse Reactions, Alerts Substance Criticality Severity Reaction Reaction Severity Status penicillins High criticality Severe Swelling of throat Active sulfa drugs Active Assessment and Plan Extracted from: Title:Physician Progress Note - Psychiatric Auth or:RAMY GIFFORD MD Date:01/21/24 The patient's mood was stabi lizing. She denied suicidal ideations. However, she is sad because her step father just and she wants to go home to be with her family. She is preparing discharge for??tomorrow. 1.??Major depressive disorder, recurrent severe without psychotic features 2.??Social phobia 3.??Agoraphobia 4.??Hypotension 5.??Afib 6.??Cardiomyopathy 7.??Diabetes Orders: buPROPion, 450 mg = 1 tab(s), Oral, Daily, # 30 tab(s), 0 Refill(s), Pharmacy: [facility] #[id number], 153.5, cm, 01/13/24 17:54:00 EST, Height/Length Dosing, 88.7, kg, 01/13/24 17:54:00 EST, Weight Dosing lamoTRIgine, 200 mg = 2 tab(s), Tab, Oral, qHS, Start date 01/20/24 21:00:00 EST, Routine lamoTRIgine, 200 mg = 1 tab(s), Oral, qHS, # 30 tab(s), 0 Refill(s), Pharmacy: [facility] #[id number], 153.5, cm, 01/13/24 17:54:00 EST, Height/Length Dosing, 88.7, kg, 01/13/24 17:54:00 EST, Weight Dosing EKG Inpatient buPROPion XL, 450 mg= 3 tab(s), Oral, Daily cetirizine, 10 mg= 1 tab(s), Oral, Daily cholecalciferol, 50 mcg= 2 tab(s), Oral, Daily cyanocobalamin, 1000 mcg= 1 tab(s), Oral, Daily D10W (25 gm) ivpb, 250 mL, IV Piggyback, Protocol, PRN Dilaudid, 4 mg= 1 tab(s), Oral, BID estradiol, 1.5 mg= 3 tab(s), Oral, qEvening estradiol, 1 mg= 1 tab(s), Oral, qAM Farxiga, 5 mg= 1 tab(s), Oral, Daily glucagon, 1 mg= 1 ea, IM, Protocol, PRN HumaLOG Sliding Scale - Low Dose, 1-5 units, Subcutaneous, TID Before Meals KlonoPIN, 1 mg= 1 tab(s), Oral, BID, PRN LaMICtal, 200 mg= 2 tab(s), Oral, qHS levothyroxine, 50 mcg= 1 tab(s), Oral, qHS magnesium oxide, 400 mg= 1 tab(s), Oral, qHS melatonin, 6 mg= 2 tab(s), Oral, qHS, PRN metFORMIN, 1000 mg= 2 tab(s), Oral, BID With Meals Milk of Magnesia, 30 mL, Oral, Daily, PRN Mylanta, 30 mL, Oral, QID, PRN naproxen, 500 mg= 2 tab(s), Oral, BID, PRN PANToprazole, 40 mg= 1 tab(s), Oral, Daily pregabalin, 100 mg= 1 cap(s), Oral, TID prochlorperazine, 10 mg= 1 tab(s), Oral, Daily, PRN rosuvastatin, 10 mg= 1 tab(s), Oral, qEvening valACYclovir, 500 mg= 1 tab(s), Oral, qHS ?? I certify that inpatient psychiatric hospital admission is medically necessary for treatment which could reasonably be expected to improve the patient's condition: yes In need of ILOC due to: suicidal ideations, depression Is the patient involuntary? no ?? Treatment Plan Discussed and Reviewed with Patient:_y Receiving active treatment through medication, individual, group, and milieu therapy Extracted from: Title:Physician Progress Note - Psychiatric Auth or:RAMY GIFFORD MD Date:01/20/24 The patient's mood is improv ing. She remains anxious and needs encouragements to go to group therapy. She takes medications and benefits from wellbutrin and lamictal, she is now at the therapeutic doses of both. ?? Her blood pressure remains low, but she is asymptomatic. EKG ordered. ?? She is interested to step down to a care bed when available. 1.??Major depressive disorder, recurrent severe without psychotic features 2.??Social phobia 3.??Agoraphobia 4.??Hypotension 5.??Afib 6.??Cardiomyopathy 7.??Diabetes Inpatient buPROPion XL, 450 mg= 3 tab(s), Oral, Daily cetirizine, 10 mg= 1 tab(s), Oral, Daily cholecalciferol, 50 mcg= 2 tab(s), Oral, Daily cyanocobalamin, 1000 mcg= 1 tab(s), Oral, Daily D10W (25 gm) ivpb, 250 mL, IV Piggyback, Protocol, PRN Dilaudid, 4 mg= 1 tab(s), Oral, BID estradiol, 1.5 mg= 3 tab(s), Oral, qEvening estradiol, 1 mg= 1 tab(s), Oral, qAM Farxiga, 5 mg= 1 tab(s), Oral, Daily glucagon, 1 mg= 1 ea, IM, Protocol, PRN HumaLOG Sliding Scale - Low Dose, 1-5 units, Subcutaneous, TID Before Meals KlonoPIN, 1 mg= 1 tab(s), Oral, BID, PRN lamoTRIgine, 175 mg= 7 tab(s), Oral, qHS levothyroxine, 50 mcg= 1 tab(s), Oral, qHS magnesium oxide, 400 mg= 1 tab(s), Oral, qHS melatonin, 6 mg= 2 tab(s), Oral, qHS, PRN metFORMIN, 1000 mg= 2 tab(s), Oral, BID With Meals Milk of Magnesia, 30 mL, Oral, Daily, PRN Mylanta, 30 mL, Oral, QID, PRN naproxen, 500 mg= 2 tab(s), Oral, BID, PRN PANToprazole, 40 mg= 1 tab(s), Oral, Daily pregabalin, 100 mg= 1 cap(s), Oral, TID prochlorperazine, 10 mg= 1 tab(s), Oral, Daily, PRN rosuvastatin, 10 mg= 1 tab(s), Oral, qEvening valACYclovir, 500 mg= 1 tab(s), Oral, qHS ?? I certify that inpatient psychiatric hospital admission is medically necessary for treatment which could reasonably be expected to improve the patient's condition: yes In need of ILOC due to: suicidal ideations, depression Is the patient involuntary? no ?? Treatment Plan Discussed and Reviewed with Patient:_y Receiving active treatment through medication, individual, group, and milieu therapy Extracted from: Title:Physician Progress Note - Psychiatric Auth or:RAMY GIFFORD MD Date:01/19/24 The patient's mood is slowly improving and stabilizing. The suicidal ideations are decreasing in intensity. She remains anxious and avoidant. She takes medications without side effects and appears to benefit from it. She??makes an effort to??go to??group and milieu therapy but social phobia and agoraphobia limit her ability to engage. She continues to benefit from hospitalization for safety and stabilization. 1.??Depression 2.??Afib 3.??Diabetes 4.??Cardiomyopathy Inpatient buPROPion XL, 450 mg= 3 tab(s), Oral, Daily cetirizine, 10 mg= 1 tab(s), Oral, Daily cholecalciferol, 50 mcg= 2 tab(s), Oral, Daily cyanocobalamin, 1000 mcg= 1 tab(s), Oral, Daily D10W (25 gm) ivpb, 250 mL, IV Piggyback, Protocol, PRN Dilaudid, 4 mg= 1 tab(s), Oral, BID estradiol, 1.5 mg= 3 tab(s), Oral, qEvening estradiol, 1 mg= 1 tab(s), Oral, qAM Farxiga, 5 mg= 1 tab(s), Oral, Daily glucagon, 1 mg= 1 ea, IM, Protocol, PRN HumaLOG Sliding Scale - Low Dose, 1-5 units, Subcutaneous, TID Before Meals KlonoPIN, 1 mg= 1 tab(s), Oral, BID, PRN lamoTRIgine, 175 mg= 7 tab(s), Oral, qHS levothyroxine, 50 mcg= 1 tab(s), Oral, qHS magnesium oxide, 400 mg= 1 tab(s), Oral, qHS melatonin, 6 mg= 2 tab(s), Oral, qHS, PRN metFORMIN, 1000 mg= 2 tab(s), Oral, BID With Meals Milk of Magnesia, 30 mL, Oral, Daily, PRN Mylanta, 30 mL, Oral, QID, PRN naproxen, 500 mg= 2 tab(s), Oral, BID, PRN PANToprazole, 40 mg= 1 tab(s), Oral, Daily pregabalin, 100 mg= 1 cap(s), Oral, TID prochlorperazine, 10 mg= 1 tab(s), Oral, Daily, PRN rosuvastatin, 10 mg= 1 tab(s), Oral, qEvening valACYclovir, 500 mg= 1 tab(s), Oral, qHS I certify that inpatient psychiatric hospital admission is medically necessary for treatment which could reasonably be expected to improve the patient's condition: yes In need of ILOC due to: suicidal ideations, depression Is the patient involuntary? no ?? Treatment Plan Discussed and Reviewed with Patient:_y Receiving active treatment through medication, individual, group, and milieu therapy Extracted from: Title:Physician Progress Note - Psychiatric Auth or:RAMY GIFFORD MD Date:01/18/24 The patient continues to rep ort depression and suicidal ideations. She??continues to??require??medications management??and engages well in group, milieu and individual therapy. Her mood is slowly improving, but she continues to require inpatient level of care for safety and stabilization. 1.??Depression 2.??Afib 3.??Diabetes 4.??Cardiomyopathy Inpatient buPROPion XL, 450 mg= 3 tab(s), Oral, Daily cetirizine, 10 mg= 1 tab(s), Oral, Daily cholecalciferol, 50 mcg= 2 tab(s), Oral, Daily cyanocobalamin, 1000 mcg= 1 tab(s), Oral, Daily D10W (25 gm) ivpb, 250 mL, IV Piggyback, Protocol, PRN Dilaudid, 4 mg= 1 tab(s), Oral, BID DULoxetine, 20 mg= 1 cap(s), Oral, Daily estradiol, 1.5 mg= 3 tab(s), Oral, qEvening estradiol, 1 mg= 1 tab(s), Oral, qAM Farxiga, 5 mg= 1 tab(s), Oral, Daily glucagon, 1 mg= 1 ea, IM, Protocol, PRN HumaLOG Sliding Scale - Low Dose, 1-5 units, Subcutaneous, TID Before Meals KlonoPIN, 1 mg= 1 tab(s), Oral, BID, PRN lamoTRIgine, 175 mg= 7 tab(s), Oral, qHS levothyroxine, 50 mcg= 1 tab(s), Oral, qHS magnesium oxide, 400 mg= 1 tab(s), Oral, qHS melatonin, 6 mg= 2 tab(s), Oral, qHS, PRN metFORMIN, 1000 mg= 2 tab(s), Oral, BID With Meals Milk of Magnesia, 30 mL, Oral, Daily, PRN Mylanta, 30 mL, Oral, QID, PRN naproxen, 500 mg= 2 tab(s), Oral, BID, PRN PANToprazole, 40 mg= 1 tab(s), Oral, Daily pregabalin, 100 mg= 1 cap(s), Oral, TID prochlorperazine, 10 mg= 1 tab(s), Oral, Daily, PRN rosuvastatin, 10 mg= 1 tab(s), Oral, qEvening valACYclovir, 500 mg= 1 tab(s), Oral, qHS ?? I certify that inpatient psychiatric hospital admission is medically necessary for treatment which could reasonably be expected to improve the patient's condition: yes In need of ILOC due to: suicidal ideations, depression Is the patient involuntary? no ?? Treatment Plan Discussed and Reviewed with Patient: yes Receiving active treatment through medication, individual, group, and milieu therapy Extracted from: Title:Physician Progress Note - Psychiatric Auth or:CHALINO CONTRERAS NP Date:01/17/24 Patient continues to??experi ence passive SI with depressed mood,??low motivation,??social anxiety with panic attacks.?? As needed Klonopin available??and managed by her outpatient team. ??Tolerating medication adjustments including increased dose of Lamictal to??175 mg. ??This can be increased to 200 mg??in the next 1 to 2 days??for mood management.?? Tolerating increased dose of Wellbutrin to 450 mg.?? Continuing to taper??Cymbalta, currently at 20 mg. ??Plan to discontinue in the next 1 to 2 days??as tolerated??to??consolidate psychiatric regimen.?? Social work is coordinating referral for stepdown placement when??appropriate. ??Patient continues to be in need of treatment for safety and stabilization.?? Discharge plan remains ongoing. ??Treatment team will follow-up tomorrow.?? 1.??Depression 2.??Afib 3.??Diabetes 4.??Cardiomyopathy Orders: DULoxetine, 20 mg = 1 cap(s), Cap-EC, Oral, Daily, Start date 01/18/24 8:00:00 EST, Routine Inpatient buPROPion XL, 450 mg= 3 tab(s), Oral, Daily cetirizine, 10 mg= 1 tab(s), Oral, Daily cholecalciferol, 50 mcg= 2 tab(s), Oral, Daily cyanocobalamin, 1000 mcg= 1 tab(s), Oral, Daily D10W (25 gm) ivpb, 250 mL, IV Piggyback, Protocol, PRN Dilaudid, 4 mg= 1 tab(s), Oral, BID DULoxetine, 20 mg= 1 cap(s), Oral, Daily estradiol, 1.5 mg= 3 tab(s), Oral, qEvening estradiol, 1 mg= 1 tab(s), Oral, qAM Farxiga, 5 mg= 1 tab(s), Oral, Daily glucagon, 1 mg= 1 ea, IM, Protocol, PRN HumaLOG Sliding Scale - Low Dose, 1-5 units, Subcutaneous, TID Before Meals KlonoPIN, 1 mg= 1 tab(s), Oral, BID, PRN lamoTRIgine, 175 mg= 7 tab(s), Oral, qHS levothyroxine, 50 mcg= 1 tab(s), Oral, qHS magnesium oxide, 400 mg= 1 tab(s), Oral, qHS melatonin, 6 mg= 2 tab(s), Oral, qHS, PRN metFORMIN, 1000 mg= 2 tab(s), Oral, BID With Meals Milk of Magnesia, 30 mL, Oral, Daily, PRN Mylanta, 30 mL, Oral, QID, PRN naproxen, 500 mg= 2 tab(s), Oral, BID, PRN PANToprazole, 40 mg= 1 tab(s), Oral, Daily pregabalin, 100 mg= 1 cap(s), Oral, TID prochlorperazine, 10 mg= 1 tab(s), Oral, Daily, PRN rosuvastatin, 10 mg= 1 tab(s), Oral, qEvening valACYclovir, 500 mg= 1 tab(s), Oral, qHS Home acetaminophen 500 mg oral tablet, 1000 mg= 2 tab(s), Oral, q8hr, PRN Albuterol (Eqv-ProAir HFA) 90 mcg/inh inhalation aerosol, 2 puff(s), Inhaled, q6hr, PRN aspirin 81 mg oral enteric coated tablet, 81 mg= 1 tab(s), Oral, Daily, with meal B-12 1000 mcg oral tablet, 1000 mcg= 1 tab(s), Oral, Daily buPROPion 150 mg/24 hours (XL) oral tablet, extended release, 150 mg= 1 tab(s), Oral, BID With Meals, 1 refills cholecalciferol 50 mcg (2000 intl units) oral tablet, 50 mcg= 1 tab(s), Oral, Daily clonazePAM 1 mg oral tablet, 1 mg= 1 tab(s), Oral, BID, PRN Dilaudid 2 mg oral tablet, 4 mg= 2 tab(s), Oral, BID, PRN docusate sodium 100 mg oral capsule, 100 mg= 1 cap(s), Oral, TID, PRN DULoxetine 30 mg oral delayed release capsule, 30 mg= 1 cap(s), Oral, Daily Entresto 97 mg-103 mg oral tablet, 1 tab(s), Oral, BID estradiol 0.5 mg oral tablet, 1 mg= 2 tab(s), Oral, qAM, in addition to 3 tabs (1.5mg) in evening estradiol 0.5 mg oral tablet, 1.5 mg= 3 tab(s), Oral, qEvening, in addition to 2 tabs (1mg) in AM Farxiga 5 mg oral tablet, 5 mg= 1 tab(s), Oral, Daily hydrocortisone topical 2.5% cream, 1 joe, Topical, QID icosapent 1 g oral capsule, 2 gm= 2 cap(s), Oral, BID lamoTRIgine 100 mg oral tablet, 150 mg= 1.5 tab(s), Oral, qHS, 1 refills levothyroxine 50 mcg (0.05 mg) oral tablet, 50 mcg= 1 tab(s), Oral, qHS loratadine 10 mg oral tablet, 10 mg= 1 tab(s), Oral, Daily magnesium oxide 400 mg oral capsule, 400 mg= 1 cap(s), Oral, qHS melatonin 10 mg oral tablet, 10 mg= 1 tab(s), Oral, qHS, PRN metFORMIN 500 mg oral tablet, extended release, 1000 mg= 2 tab(s), Oral, BID metoprolol tartrate 25 mg oral tablet, 12.5 mg= 0.5 tab(s), Oral, BID naproxen 250 mg oral tablet, 500 mg= 2 tab(s), Oral, BID, PRN naratriptan 2.5 mg oral tablet, 2.5 mg= 1 tab(s), Oral, BID, PRN Narcan 4 mg/0.1 mL nasal spray, 1 spray(s), Nasal, Once, PRN, for overdose- may repeat every 2 to 3 minutes until patient responds omeprazole 20 mg oral delayed release capsule, 20 mg= 1 cap(s), Oral, Daily polyethylene glycol 3350 oral powder for reconstitution, 17 gm, Oral, Daily, PRN pregabalin 100 mg oral capsule, 100 mg= 1 cap(s), Oral, TID prochlorperazine 10 mg oral tablet, 10 mg= 1 tab(s), Oral, Daily, PRN rosuvastatin 10 mg oral tablet, 10 mg= 1 tab(s), Oral, qEvening Trulicity Pen 3 mg/0.5 mL subcutaneous solution, 3 mg, Subcutaneous, Thur, once weekly, rotate injection sites valACYclovir 500 mg oral tablet, 500 mg= 1 tab(s), Oral, Daily Vitamin B2, 1 tab(s), Oral, BID, 200mg tablets ?? I certify that inpatient psychiatric hospital admission is medically necessary for treatment which could reasonably be expected to improve the patient's condition: _Yes In need of ILOC due to:_SI prevention Is the patient involuntary? _No ?? Treatment Plan Discussed and Reviewed with Patient:_yes Receiving active treatment through medication, individual, group, and milieu therapy Extracted from: Title:History & Physical - Psychiatric Author:ME SANGEETHA CONTRERAS NP Date:01/14/24 Reason for Admission SI. Substance Abuse History Denies illicit drug use. ??Formal tobacco user. Mental Status Exam General appearance: Fairly kept, good eye contact, sitting on side of bed Mood and Affect:??Depressed; mood congruent affect Gait:??Not observed Muscle strength and tone:??No tremor or weakness observed Speech:??Nonpressured Thought content:??Passive SI without plan or intent; no reports of HI/AVH;??no evidence of delusion or paranoia Thought process:??Organized Orientation:??X 3 Language:??Able to verbally articulate??needs Attention span and concentration:??Adequate for interview Fundamentals of knowledge:??Average Associations:??Intact Recent and Remote memory:??Intact Judgement and Insight:??Fair/fair ? Assessment/Plan 48-year-old female??with history of depression,??anxiety,??multiple medical comorbidities -readmitted to [facility] [place] after being??discharged??on January 05. ??Patient reported that she discharged prematurely and continued to feel suicidal.?? Ongoing into intrafamilial??stressors, decrease in ADLs, hypersomnia,??decreased appetite, low energy/motivation, anhedonia.?Endorses passive SI. ??No evidence of danna or psychosis. ??Resumed home medications.?? Discussed increase of Wellbutrin to 450 mg for management of depression.?? Pharmacy does not carry??Trulicity??for management of her diabetes. ??She receives this every . ??Will place endocrinology consult for follow-up. ??Patient does have a primary care provider and therapist. ??She had a pending referral for a psychiatric prescriber??from her last departure??but had not made contact. ??In patient's current condition, inpatient care remains warranted for safety and stabilization.?? Discharge planning remains ongoing. ?? Pending labs/EKG. ?? The patient was admitted on a voluntary basis and placed on 15 minute checks for safety and stabilization. Pt will be evaluated by nursing, social work and occupational therapy.??Pt will be enrolled in individual, group and milieu therapies. We will contact collaterals and outpatient providers for continuity of care and will work with patient on discharge planning. ? Diagnosis 1.??Depression Ordered: Al hydroxide/Mg hydroxide/simethicone, 30 mL, Susp, Start date 01/13/24 16:25:00 EST, Oral, QID PRN dyspepsia, Routine, 01/13/24 16:25:00 EST magnesium hydroxide, 30 mL, Susp, Start date 01/13/24 16:25:00 EST, Oral, Daily PRN constipation, Routine, 01/13/24 16:25:00 EST Admit to Psychiatric Unit [facility] Quality Measures Resuscitation Status Safety Checks Substance Abuse Quality Measures Tobacco Cessation Quality Measures Up ad Joyce ?? 2.??Afib ?? 3.??Diabetes ?? 4.??Cardiomyopathy ?? Orders: buPROPion, 450 mg = 3 tab(s), Tab-XL, Oral, Daily, Start date 01/15/24 8:00:00 EST, Routine cetirizine, 10 mg = 1 tab(s), Tab, Oral, Daily, Start date 01/14/24 8:00:00 EST, Routine cholecalciferol, 50 mcg = 2 tab(s), Tab, Oral, Daily, Start date 01/14/24 8:00:00 EST, Routine clonazePAM, 1 mg = 1 tab(s), Tab, Oral, BID PRN agitation/anxiety, Start date 01/13/24 16:37:00 EST, Routine cyanocobalamin, 1,000 mcg = 1 tab(s), Tab, Oral, Daily, Start date 01/14/24 8:00:00 EST, Routine dapagliflozin, 5 mg = 1 tab(s), Tab, Oral, Daily, Start date 01/14/24 8:00:00 EST, Routine DULoxetine, 30 mg = 1 cap(s), Cap-EC, Oral, Daily, Start date 01/14/24 8:00:00 EST, Routine estradiol, 1.5 mg = 3 tab(s), Tab, Oral, qEvening, Start date 01/13/24 21:00:00 EST, Routine estradiol, 1 mg = 1 tab(s), Tab, Oral, qAM, Start date 01/14/24 8:00:00 EST, Routine HYDROmorphone, 4 mg = 1 tab(s), Tab, Oral, BID, Start date 01/13/24 21:00:00 EST, Routine lamoTRIgine, 150 mg = 6 tab(s), Tab, Oral, qHS, Start date 01/13/24 21:00:00 EST, Routine levothyroxine, 50 mcg = 1 tab(s), Tab, Oral, qHS, Start date 01/13/24 21:00:00 EST, Routine magnesium oxide, 400 mg = 1 tab(s), Tab, Oral, qHS, Start date 01/13/24 21:00:00 EST, Routine metFORMIN, 1,000 mg = 2 tab(s), Tab, Oral, BID With Meals, Start date 01/13/24 17:00:00 EST, Routine metoprolol, 12.5 mg = 0.5 tab(s), Tab, Oral, BID, Start date 01/13/24 21:00:00 EST, Routine naproxen, 500 mg = 2 tab(s), Tab, Oral, BID PRN pain, Start date 01/13/24 16:41:00 EST, Routine PANToprazole, 40 mg = 1 tab(s), Tab-EC, Oral, Daily, Start date 01/14/24 8:00:00 EST, Routine pregabalin, 100 mg = 1 cap(s), Cap, Oral, TID, Start date 01/13/24 21:00:00 EST, Routine prochlorperazine, 10 mg = 1 tab(s), Tab, Oral, Daily PRN headache, Start date 01/13/24 16:44:00 EST, Routine rosuvastatin, 10 mg = 1 tab(s), Tab, Oral, qEvening, Start date 01/13/24 21:00:00 EST, Routine valACYclovir, 500 mg = 1 tab(s), Tab, Oral, qHS, Start date 01/13/24 21:00:00 EST, Routine CBC Comprehensive Metabolic Panel Consult Director Vaccine Home Meds in Pharmacy Nursing Communication Nursing Communication Thyroid [place] Vitamin D Total (25 Hydroxy) Functional Status 01/22/24 ADLs Independent Medications acetaminophen 500 mg oral tablet 1,000 mg = 2 tab(s), Oral, q8hr, PRN PRN: fever/pain/headache Start Date: 01/15/24 Status: Ordered Albuterol (Eqv-ProAir HFA) 90 mcg/inh inhalation aerosol 2 puff(s), Inhaled, q6hr, PRN PRN shortness of breath or wheezing Start Date: 01/01/24 Status: Ordered aspirin 81 mg oral enteric coated tablet 81 mg = 1 tab(s), Oral, Daily, with meal Start Date: 01/01/24 Status: Ordered B-12 1000 mcg oral tablet 1,000 mcg = 1 tab(s), Oral, Daily Start Date: 01/01/24 Status: Ordered buPROPion 450 mg/24 hours (XL) oral tablet, extended release 450 mg = 1 tab(s), Oral, Daily, # 30 tab(s), 0 Refill(s), Pharmacy: [facility] #[id number], 153.5, cm, 01/13/24 17:54:00 EST, Height/Length Dosing, 88.7, kg, 01/13/24 17:54:00 EST, Weight Dosing Start Date: 01/21/24 Stop Date: 02/20/24 Status: Ordered cholecalciferol 50 mcg (2000 intl units) oral tablet 50 mcg = 1 tab(s), Oral, Daily Start Date: 01/01/24 Status: Ordered clonazePAM 1 mg oral tablet 1 mg = 1 tab(s), Oral, BID, PRN PRN: agitation/anxiety Start Date: 01/15/24 Status: Ordered Dilaudid 2 mg oral tablet 4 mg = 2 tab(s), Oral, BID, PRN PRN: pain, 0 Refill(s) Start Date: 12/28/18 Status: Ordered docusate sodium 100 mg oral capsule 100 mg = 1 cap(s), Oral, TID, PRN PRN: for constipation Start Date: 01/15/24 Status: Ordered Entresto 97 mg-103 mg oral tablet 1 tab(s), Oral, BID Start Date: 01/01/24 Status: Ordered estradiol 0.5 mg oral tablet 1 mg = 2 tab(s), Oral, qAM, in addition to 3 tabs (1.5mg) in evening Start Date: 01/01/24 Status: Ordered estradiol 0.5 mg oral tablet 1.5 mg = 3 tab(s), Oral, qEvening, in addition to 2 tabs (1mg) in AM Start Date: 01/01/24 Status: Ordered Farxiga 5 mg oral tablet 5 mg = 1 tab(s), Oral, Daily Start Date: 01/01/24 Status: Ordered hydrocortisone topical 2.5% cream 1 joe, Topical, QID Start Date: 01/01/24 Status: Ordered icosapent 1 g oral capsule 2 gm = 2 cap(s), Oral, BID Start Date: 01/01/24 Status: Ordered LaMICtal 200 mg oral tablet 200 mg = 1 tab(s), Oral, qHS, # 30 tab(s), 0 Refill(s), Pharmacy: [email or web address] #[id number], 153.5, cm, 01/13/24 17:54:00 EST, Height/Length Dosing, 88.7, kg, 01/13/24 17:54:00 EST, Weight Dosing Start Date: 01/21/24 Stop Date: 02/20/24 Status: Ordered levothyroxine 50 mcg (0.05 mg) oral tablet 50 mcg = 1 tab(s), Oral, qHS Start Date: 01/01/24 Status: Ordered loratadine 10 mg oral tablet 10 mg = 1 tab(s), Oral, Daily Start Date: 01/01/24 Status: Ordered magnesium oxide 400 mg oral capsule 400 mg = 1 cap(s), Oral, qHS Start Date: 01/01/24 Status: Ordered melatonin 10 mg oral tablet 10 mg = 1 tab(s), Oral, qHS, PRN PRN: as needed for insomnia Start Date: 01/01/24 Status: Ordered metFORMIN 500 mg oral tablet, extended release 1,000 mg = 2 tab(s), Oral, BID Start Date: 01/01/24 Status: Ordered metoprolol tartrate 25 mg oral tablet 12.5 mg = 0.5 tab(s), Oral, BID Start Date: 01/01/24 Status: Ordered naproxen 250 mg oral tablet 500 mg = 2 tab(s), Oral, BID, PRN PRN: as needed for pain Start Date: 01/15/24 Status: Ordered naratriptan 2.5 mg oral tablet 2.5 mg = 1 tab(s), Oral, BID, PRN PRN: headache Start Date: 01/01/24 Status: Ordered Narcan 4 mg/0.1 mL nasal spray = 1 spray(s), Nasal, Once, PRN PRN: other (see comment), for overdose- may repeat every 2 to 3 minutes until patient responds Start Date: 01/01/24 Status: Ordered omeprazole 20 mg oral delayed release capsule 20 mg = 1 cap(s), Oral, Daily Start Date: 01/01/24 Status: Ordered polyethylene glycol 3350 oral powder for reconstitution 17 gm =, Oral, Daily, PRN PRN constipation Start Date: 01/01/24 Status: Ordered pregabalin 100 mg oral capsule 100 mg = 1 cap(s), Oral, TID Start Date: 01/01/24 Status: Ordered prochlorperazine 10 mg oral tablet 10 mg = 1 tab(s), Oral, Daily, PRN PRN: nausea/vomiting Start Date: 01/01/24 Status: Ordered rosuvastatin 10 mg oral tablet 10 mg = 1 tab(s), Oral, qEvening Start Date: 01/01/24 Status: Ordered Trulicity Pen 3 mg/0.5 mL subcutaneous solution 3 mg, Subcutaneous, Thur, once weekly, rotate injection sites Start Date: 01/01/24 Status: Ordered valACYclovir 500 mg oral tablet 500 mg = 1 tab(s), Oral, Daily Start Date: 01/15/24 Status: Ordered Vitamin B2 = 1 tab(s), Oral, BID, 200mg tablets Start Date: 01/01/24 Status: Ordered Mental Status 01/22/24 Level of Consciousness Alert Orientation Assessment Oriented x 4 Problem List Condition Confirmation Course Effective Dates Status H ealth Status Informant ICD (implantable cardioverter-defibril lator) in place Confirmed Active Diabetes Confirmed Active Cardiomyopathy, familial Confirmed Active Anxiety and depression Confirmed Active Nonocclusive coronary atherosclerosis of [place] coronary artery Confirmed Active Results Laboratory List Name Date POC Glucose 01/22/24 Blood Glucose Monitoring POC 01/22/24 POC Glucose 01/22/24 POC Glucose 01/21/24 Blood Glucose Monitoring POC 01/21/24 Blood Glucose Monitoring POC 01/19/24 Blood Glucose Monitoring POC 01/19/24 CBC 01/14/24 Comprehensive Metabolic Panel (CMP) 01/14 Thyroid [place] 01/14/24 Vitamin D Total (25 Hydroxy) 01/14/24 .Estimated Glomerular Filtration Rate Most recent to oldest [Reference Range]: 1 2 3 POC Glucose [74-106 mg/dL] 95 mg/dL 1 (01/22/24 11:38 AM) 104 mg/dL 2 (01/22/24 7:22 AM) 79 mg/dL 3 (01/21/24 4:44 PM) AGAP 8 *NA* (01/14/24 2:50 PM) A/G Ratio 0.9 *NA* (01/14/24 2:50 PM) BUN/Creat Ratio 23 *NA* (01/14/24 2:50 PM) RBC [4.00-5.20 x10(6)/mcL] 4.38 x10(6)/mcL (01/14/24 2:50 PM) RDW [11.5-14.5 %] 13.6 % (01/14/24 2:50 PM) Sodium Level [136-145 mmol/L] 137 mmol/L (01/14/24 2:50 PM) Total Protein [6.4-8.2 gm/dL] 6.5 gm/dL (01/14/24 2:50 PM) TSH [0.360-3.740 mcIU/mL] 1.290 mcIU/mL (01/14/24 2:50 PM) AST [15-37 IU/L] 16 IU/L 4 (01/14/24 2:50 PM) Bili Total [0.20-1.00 mg/dL] 0.47 mg/dL (01/14/24 2:50 PM) CO2 [21-32 mmol/L] 30 mmol/L (01/14/24 2:50 PM) Albumin Level [3.4-5.0 gm/dL] 3.1 gm/dL *LOW* (01/14/24 2:50 PM) Alk Phos [48-129 unit/L] 44 unit/L *LOW* (01/14/24 2:50 PM) ALT [13-61 IU/L] 23 IU/L 5 (01/14/24 2:50 PM) Hct [36.0-46.0 %] 41.4 % (01/14/24 2:50 PM) Hgb [12.0-15.0 gm/dL] 13.6 gm/dL (01/14/24 2:50 PM) MCH [26.0-34.0 pg] 31.1 pg (01/14/24 2:50 PM) MCHC [31.0-37.0 gm/dL] 32.9 gm/dL (01/14/24 2:50 PM) MCV [80-100 fL] 95 fL (01/14/24 2:50 PM) MPV [9.2-12.7 fL] 10.5 fL (01/14/24 2:50 PM) Glucose Level [74-106 mg/dL] 91 mg/dL 6 (01/14/24 2:50 PM) Platelet [150-350 x10(3)/mcL] 169 x10(3)/mcL (01/14/24 2:50 PM) Potassium Level [3.5-5.1 mmol/L] 4.0 mmol/L (01/14/24 2:50 PM) WBC [4.5-11.0 x10(3)/mcL] 5.2 x10(3)/mcL (01/14/24 2:50 PM) BUN [7-18 mg/dL] 14 mg/dL (01/14/24 2:50 PM) Calcium Level [8.5-10.1 mg/dL] 9.2 mg/dL (01/14/24 2:50 PM) Chloride [98-107 mmol/L] 103 mmol/L (01/14/24 2:50 PM) eGFR AA >60 mL/min/1.73 m2 7 *NA* (01/14/24 2:50 PM) eGFR KURT >60 mL/min/1.73 m2 8 *NA* (01/14/24 2:50 PM) NRBC % [0.0-0.2 %] 0.0 % (01/14/24 2:50 PM) Osmol Calculated 274 mOsm/kg *NA* (01/14/24 2:50 PM) Vitamin D Total (25 Hydroxy) [30.0-100.0 ng/mL] 71.8 ng/mL (01/14/24 2:50 PM) Creatinine [0.6-1.3 mg/dL] 0.6 mg/dL (01/14/24 2:50 PM) Blood Glucose Interventions Administered agent to decrease blood sugar (01/15/24 11:42 AM) Blood Glucose Stick Site Right (01/22/24 7:24 AM) Finger, Left (01/21/24 4:44 PM) Finger (01/21/24 8:20 AM) Blood Glucose Testing Reason Routine (01/22/24 7:24 AM) Routine (01/21/24 4:44 PM) Routine (01/21/24 7:50 AM) Blood Glucose Meter Serial Number [id number] (01/22/24 7:24 AM) 73 (01/19/24 4:45 PM) [id number] (01/19/24 7:25 AM) 1Result Comment: AnalyzeDat-[id number] [id number] 2Result Comment: AnalyzeDat-[id number] [id number] 3Result Comment: AnalyzeDat-[id number] [id number] 4Interpretive Data: Falsely decreased results of up to 19% may be seen in patients taking sulfasalazine or sulfapyridine. 5Interpretive Data: Falsely decreased results of up to 72% may be seen in patients taking sulfasalazine and falsely decreased results of up to 19% may be seen in patients taking sulfapyridine. 6Interpretive Data: Falsely decreased results of up to 21% may be seen in patients taking sulfasalazine. 7Interpretive Data: Estimated GFR values are reported for both (AA) and Non AfricanAmerican (KURT) populations. The eGFR has been validated only in healthy adults 18 - 70 years of age. The calculation has not been validated for women, patients of extreme body mass, or for patients with unusual dietary intake. 8Interpretive Data: Estimated GFR values are reported for both (AA) and Non AfricanAmerican (KURT) populations. The eGFR has been validated only in healthy adults 18 - 70 years of age. The calculation has not been validated for women, patients of extreme body mass, or for patients with unusual dietary intake. Vital Signs Most recent to oldest [Reference Range]: 1 2 3 Temperature Temporal Artery [36.3-37.8 DegC] 35.9 DegC *LOW* (01/22/24 8:56 AM) 36.3 DegC (01/21/24 12:36 PM) 36.5 DegC (01/21/24 8:00 AM) Peripheral Pulse Rate [60-100 bpm] 87 bpm (01/22/24 8:56 AM) 78 bpm (01/21/24 12:36 PM) 85 bpm (01/21/24 8:00 AM) Respiratory Rate [14-20 br/min] 18 br/min (01/22/24 8:56 AM) 18 br/min (01/21/24 8:00 AM) 18 br/min (01/20/24 7:58 AM) Blood Pressure [90-140/60-90 mmHg] 104/63mmHg (01/22/24 8:56 AM) 105/73mmHg (01/21/24 12:36 PM) 101/71mmHg (01/21/24 8:00 AM) Mean Arterial Pressure, Cuff 69 mmHg (01/14/24 10:57 AM) 64 mmHg (01/14/24 9:02 AM) Blood Pressure 100/74mmHg (01/15/24 10:21 AM) 88/66mmHg (01/15/24 9:58 AM) 96/60mmHg (01/14/24 7:25 AM) Mean Arterial Presure, Manual 73 mmHg (01/15/24 9:58 AM) 75 mmHg (01/13/24 5:48 PM) Social History Social History Type Response Smoking Status Current every day sm oker; Type: Cigarettes 1 entered on: 12/25/18 Sex Female 1half pack a day Consult note * HAL BO MD: PERFORM, MODIFY Event Display: Consultation Authored Date: [id number] Consultation Note History of Present Illness Patient is a 48-year-old female seen in consultation for type 2 diabetes mellitus.?She was admitted today for??depression and suicidal ideation.?She has had??diabetes for??20 years.?No knownneuropathy or??retinopathy or??nephropathy??but she does have a??history of cardiomyopathy.?She??is on Farxiga 5 mg daily??Trulicity 3 mg weekly??and metformin??1000 mg twice a day.?She does not monitor her blood sugars at home.?She reports no recent hypoglycemia.?She thinks her most recent hemoglobin A1c was 6.4%.?Blood glucose??this??afternoon at admission was 91.?She usually takes her??Trulicity on . Physical Exam Vitals & Measurements T:??37?C??(Temporal Artery)?? HR:??86??(Peripheral)?? BP:??95/61?? SpO2:??97%?? Lab Results Chemistry BUN: 14 mg/dL (01/14/24 14:50:03) Calcium Level: 9.2 mg/dL (01/14/24 14:50:03) Chloride: 103 mmol/L (01/14/24 14:50:03) Creatinine: 0.6 mg/dL (01/14/24 14:50:03) Glucose Level: 91 mg/dL (01/14/24 14:50:03) Potassium Level: 4 mmol/L (01/14/24 14:50:03) Sodium Level: 137 mmol/L (01/14/24 14:50:03) TSH: 1.29 mcIU/mL (01/14/24 14:50:03) LFT Albumin Level:??3.1 gm/dL??Low (01/14/24 14:50:03) Alk Phos:??44 unit/L??Low (01/14/24 14:50:03) ALT: 23 IU/L (01/14/24 14:50:03) AST: 16 IU/L (01/14/24 14:50:03) Bili Total: 0.47 mg/dL (01/14/24 14:50:03) Total Protein: 6.5 gm/dL (01/14/24 14:50:03) Hematology Hct: 41.4 % (01/14/24 14:50:03) Hgb: 13.6 gm/dL (01/14/24 14:50:03) Platelet: 169 x10(3)/mcL (01/14/24 14:50:03) RBC: 4.38 x10(6)/mcL (01/14/24 14:50:03) WBC: 5.2 x10(3)/mcL (01/14/24 14:50:03) Assessment/Plan 1.?Type 2 diabetes mellitus??currently??well-controlled on Farxiga metformin and Trulicity.?The effects of Trulicity??may last longer than 1 week??so??her blood glucose may range??mainly in target range even without additional medications.?Would recommend checking??fingerstick blood sugar twice a day??before breakfast and supper.?Will??order??low-dose sliding scale if blood glucose level is over??150.?If blood glucose??levels are??persistently high could increase dose of Farxiga??temporarily.?Dr. Raza will follow-up with patient tomorrow. Problem List/Past Medical History Ongoing Anxiety and depression Cardiomyopathy, familial Diabetes ICD (implantable cardioverter-defibrillator) in place Nonocclusive coronary atherosclerosis of [place] coronary artery Historical No qualifying data Medications Inpatient buPROPion XL, 450 mg= 3 tab(s), Oral, Daily cetirizine, 10 mg= 1 tab(s), Oral, Daily cholecalciferol, 50 mcg= 2 tab(s), Oral, Daily cyanocobalamin, 1000 mcg= 1 tab(s), Oral, Daily Dilaudid, 4 mg= 1 tab(s), Oral, BID DULoxetine, 30 mg= 1 cap(s), Oral, Daily estradiol, 1.5 mg= 3 tab(s), Oral, qEvening estradiol, 1 mg= 1 tab(s), Oral, qAM Farxiga, 5 mg= 1 tab(s), Oral, Daily KlonoPIN, 1 mg= 1 tab(s), Oral, BID, PRN lamoTRIgine, 150 mg= 6 tab(s), Oral, qHS levothyroxine, 50 mcg= 1 tab(s), Oral, qHS magnesium oxide, 400 mg= 1 tab(s), Oral, qHS metFORMIN, 1000 mg= 2 tab(s), Oral, BID With Meals metoprolol tartrate, 12.5 mg= 0.5 tab(s), Oral, BID Milk of Magnesia, 30 mL, Oral, Daily, PRN Mylanta, 30 mL, Oral, QID, PRN naproxen, 500 mg= 2 tab(s), Oral, BID, PRN PANToprazole, 40 mg= 1 tab(s), Oral, Daily pregabalin, 100 mg= 1 cap(s), Oral, TID prochlorperazine, 10 mg= 1 tab(s), Oral, Daily, PRN rosuvastatin, 10 mg= 1 tab(s), Oral, qEvening valACYclovir, 500 mg= 1 tab(s), Oral, qHS Home Albuterol (Eqv-ProAir HFA) 90 mcg/inh inhalation aerosol, 2 puff(s), Inhaled, q6hr, PRN aspirin 81 mg oral enteric coated tablet, 81 mg= 1 tab(s), Oral, Daily, with meal B-12 1000 mcg oral tablet, 1000 mcg= 1 tab(s), Oral, Daily buPROPion 150 mg/24 hours (XL) oral tablet, extended release, 150 mg= 1 tab(s), Oral, BID With Meals, 1 refills cholecalciferol 50 mcg (2000 intl units) oral tablet, 50 mcg= 1 tab(s), Oral, Daily Dilaudid 2 mg oral tablet, 4 mg= 2 tab(s), Oral, BID, PRN DULoxetine 30 mg oral delayed release capsule, 30 mg= 1 cap(s), Oral, Daily Entresto 97 mg-103 mg oral tablet, 1 tab(s), Oral, BID estradiol 0.5 mg oral tablet, 1 mg= 2 tab(s), Oral, qAM, in addition to 3 tabs (1.5mg) in evening estradiol 0.5 mg oral tablet, 1.5 mg= 3 tab(s), Oral, qEvening, in addition to 2 tabs (1mg) in AM Farxiga 5 mg oral tablet, 5 mg= 1 tab(s), Oral, Daily hydrocortisone topical 2.5% cream, 1 joe, Topical, QID icosapent 1 g oral capsule, 2 gm= 2 cap(s), Oral, BID KlonoPIN 1 mg oral tablet, 1 mg= 1 tab(s), Oral, BID, PRN lamoTRIgine 100 mg oral tablet, 150 mg= 1.5 tab(s), Oral, qHS, 1 refills levothyroxine 50 mcg (0.05 mg) oral tablet, 50 mcg= 1 tab(s), Oral, qHS loratadine 10 mg oral tablet, 10 mg= 1 tab(s), Oral, Daily magnesium oxide 400 mg oral capsule, 400 mg= 1 cap(s), Oral, qHS melatonin 10 mg oral tablet, 10 mg= 1 tab(s), Oral, qHS, PRN metFORMIN 500 mg oral tablet, extended release, 1000 mg= 2 tab(s), Oral, BID metoprolol tartrate 25 mg oral tablet, 12.5 mg= 0.5 tab(s), Oral, BID naproxen 250 mg oral tablet, 500 mg= 2 tab(s), Oral, BID, PRN naratriptan 2.5 mg oral tablet, 2.5 mg= 1 tab(s), Oral, BID, PRN Narcan 4 mg/0.1 mL nasal spray, 1 spray(s), Nasal, Once, PRN, for overdose- may repeat every 2 to 3minutes until patient responds omeprazole 20 mg oral delayed release capsule, 20 mg= 1 cap(s), Oral, Daily polyethylene glycol 3350 oral powder for reconstitution, 17 gm, Oral, Daily, PRN pregabalin 100 mg oral capsule, 100 mg= 1 cap(s), Oral, TID prochlorperazine 10 mg oral tablet, 10 mg= 1 tab(s), Oral, Daily, PRN rosuvastatin 10 mg oral tablet, 10 mg= 1 tab(s), Oral, qEvening Trulicity Pen 3 mg/0.5 mL subcutaneous solution, 3 mg, Subcutaneous, Thur, once weekly, rotate injection sites valACYclovir 500 mg oral tablet, 500 mg= 1 tab(s), Oral, qHS Vitamin B2, 1 tab(s), Oral, BID, 200mg tablets Allergies penicillins??(Swelling of throat) sulfa drugs Social History Smoking Status Current every day smoker Alcohol Current Tobacco Tobacco Use: Current every day smoker. Cigarettes Electronically Signed By: HAL BO MD Date and Time Signed: 01/14/24 18:14 EST Physician Progress Note * RAMY GIFFORD MD: PERFORM Event Display: Physician Progress Note Authored Date: [id number] Progress Note Subjective/24 Hour Events EMR reviewed. Discussed with nurses and elementary school social worker. The patient was seen in her room ?? She was on the phone crying. She said that she just learned that her step grandfather . She is sad and crying. She feels that she needs to go home to be with her family and grieve. She would liketo discharge tomorrow. She denied suicidal ideations. She would be safe at home. She has no suicidal plans or intent. She is able to care for herself. She remains depressed and this news makes her mood worse. She remains anxious and takes klonopin 1mg prn at times. She is on lamictal 200mg qHs and wellbutrin 450mg daily and tolerates well, no side effects. She completed an EKG yesterday and it was sinus rythm but the QTc was elevated at 507. Will repeat EKG today. Review of Systems Slept 6.75h, eat meals, does ADLs, no pain reported. Objective Vitals & Measurements T:??36.3?C??(Temporal Artery)?? TMIN:??36.3?C??(Temporal Artery)?? TMAX:??36.5?C??(Temporal Artery)?? HR:??78??(Peripheral)?? RR:??18?? BP:??105/73?? SpO2:??96%?? Mental Status Examination General Appearance: good eye contact, engages well in??interview with psychiatrist Muscle Strength and Tone:??No abnormal movements, no tremors Gait:??Normal Mood and Affect:??Mood sad, affect crying Speech:??Average rate, volume and prosody Thought Process:??Logical, goal-directed Associations:??Intact Thought Content:??denied SI, safe in the hospital, no homicidal ideations, no apparent delusion, paranoia or hallucinations Orientation:??oriented to time, place, date and situation Attention Span and Concentration:??Fair for interview Recent and Remote Memory:??Fair for interview Language:??Normal Fund of Knowledge:??Average Judgment and Insight:??Fair Results Lab Results Chemistry POC Glucose: 88 mg/dL Assessment/Plan The patient's mood was stabilizing. She denied suicidal ideations. However, she is sad because her step father just and she wants to go home to be with her family. She is preparing discharge for??tomorrow. Diagnosis 1.??Major depressive disorder, recurrent severe without psychotic features 2.??Social phobia 3.??Agoraphobia 4.??Hypotension 5.??Afib 6.??Cardiomyopathy 7.??Diabetes Orders: buPROPion, 450 mg = 1 tab(s), Oral, Daily, # 30 tab(s), 0 Refill(s), Pharmacy: [id number], 153.5, cm, 01/13/24 17:54:00 EST, Height/Length Dosing, 88.7, kg, 01/13/24 17:54:00 EST, Weight Dosing lamoTRIgine, 200 mg = 2 tab(s), Tab, Oral, qHS, Start date 01/20/24 21:00:00 EST, Routine lamoTRIgine, 200 mg = 1 tab(s), Oral, qHS, # 30 tab(s), 0 Refill(s), Pharmacy: [id number], 153.5, cm, 01/13/24 17:54:00 EST, Height/Length Dosing, 88.7, kg, 01/13/24 17:54:00 EST, Weight Dosing EKG Medications Inpatient buPROPion XL, 450 mg= 3 tab(s), Oral, Daily cetirizine, 10 mg= 1 tab(s), Oral, Daily cholecalciferol, 50 mcg= 2 tab(s), Oral, Daily cyanocobalamin, 1000 mcg= 1 tab(s), Oral, Daily D10W (25 gm) ivpb, 250 mL, IV Piggyback, Protocol, PRN Dilaudid, 4 mg= 1 tab(s), Oral, BID estradiol, 1.5 mg= 3 tab(s), Oral, qEvening estradiol, 1 mg= 1 tab(s), Oral, qAM Farxiga, 5 mg= 1 tab(s), Oral, Daily glucagon, 1 mg= 1 ea, IM, Protocol, PRN HumaLOG Sliding Scale - Low Dose, 1-5 units, Subcutaneous, TID Before Meals KlonoPIN, 1 mg= 1 tab(s), Oral, BID, PRN LaMICtal, 200 mg= 2 tab(s), Oral, qHS levothyroxine, 50 mcg= 1 tab(s), Oral, qHS magnesium oxide, 400 mg= 1 tab(s), Oral, qHS melatonin, 6 mg= 2 tab(s), Oral, qHS, PRN metFORMIN, 1000 mg= 2 tab(s), Oral, BID With Meals Milk of Magnesia, 30 mL, Oral, Daily, PRN Mylanta, 30 mL, Oral, QID, PRN naproxen, 500 mg= 2 tab(s), Oral, BID, PRN PANToprazole, 40 mg= 1 tab(s), Oral, Daily pregabalin, 100 mg= 1 cap(s), Oral, TID prochlorperazine, 10 mg= 1 tab(s), Oral, Daily, PRN rosuvastatin, 10 mg= 1 tab(s), Oral, qEvening valACYclovir, 500 mg= 1 tab(s), Oral, qHS Physician Re-Certification of Medical Necessity ?? I certify that inpatient psychiatric hospital admission is medically necessary for treatment which could reasonably be expected to improve the patient's condition: yes In need of ILOC due to: suicidal ideations, depression Is the patient involuntary? no Treatment Plan: ?? Treatment Plan Discussed and Reviewed with Patient:_y Receiving active treatment through medication, individual, group, and milieu therapy Electronically Signed By: RAMY GIFFORD MD Date and Time Signed: 01/21/24 13:48 EST * RAMY GIFFORD MD: PERFORM Event Display: Physician Progress Note Authored Date: [id number] Progress Note Subjective/24 Hour Events EMR reviewed. Discussed with nurses and elementary school social worker. The patient was seen in her room. ?? She said her mood is improving. No suicidal ideations for the past two days.??She is sleeping well.She remains anxious and isolative. She feels guilt for not being home. She said that she will ask afriend to help take care of her daughter and her on weekends. She takes wellbutrin 450mg daily and lamictal 175mg qHS. She agreed to increase lamictal to 200mg qHS. No side effects noted. Shewas encouraged to go to group therapy after talking with the group therapist. She has a meeting with her outpatient team tomorrow to discuss discharge to a care bed. Review of Systems Slept 10.5h, eat meals, does ADLs, no pain reported. Objective Vitals & Measurements T:??36.5?C??(Temporal Artery)?? HR:??84??(Peripheral)?? RR:??18?? BP:??100/61?? SpO2:??100%?? Mental Status Examination General Appearance: good eye contact, engages well in??interview with psychiatrist Muscle Strength and Tone:??No abnormal movements, no tremors Gait:??Normal Mood and Affect:??Mood better, affect flat, calm Speech:??Average rate, volume and prosody Thought Process:??Logical, goal-directed Associations:??Intact Thought Content:??denied SI, safe in the hospital, no homicidal ideations, no apparent delusion, paranoia or hallucinations Orientation:??oriented to time, place, date and situation Attention Span and Concentration:??Fair for interview Recent and Remote Memory:??Fair for interview Language:??Normal Fund of Knowledge:??Average Judgment and Insight:??Fair Results Lab Results Chemistry POC Glucose: 88 mg/dL Assessment/Plan The patient's mood is improving. She remains anxious and needs encouragements to go to group therapy. She takes medications and benefits from wellbutrin and lamictal, she is now at the therapeutic doses of both. ?? Her blood pressure remains low, but she is asymptomatic. EKG ordered. ?? She is interested to step down to a care bed when available. Diagnosis 1.??Major depressive disorder, recurrent severe without psychotic features 2.??Social phobia 3.??Agoraphobia 4.??Hypotension 5.??Afib 6.??Cardiomyopathy 7.??Diabetes Medications Inpatient buPROPion XL, 450 mg= 3 tab(s), Oral, Daily cetirizine, 10 mg= 1 tab(s), Oral, Daily cholecalciferol, 50 mcg= 2 tab(s), Oral, Daily cyanocobalamin, 1000 mcg= 1 tab(s), Oral, Daily D10W (25 gm) ivpb, 250 mL, IV Piggyback, Protocol, PRN Dilaudid, 4 mg= 1 tab(s), Oral, BID estradiol, 1.5 mg= 3 tab(s), Oral, qEvening estradiol, 1 mg= 1 tab(s), Oral, qAM Farxiga, 5 mg= 1 tab(s), Oral, Daily glucagon, 1 mg= 1 ea, IM, Protocol, PRN HumaLOG Sliding Scale - Low Dose, 1-5 units, Subcutaneous, TID Before Meals KlonoPIN, 1 mg= 1 tab(s), Oral, BID, PRN lamoTRIgine, 175 mg= 7 tab(s), Oral, qHS levothyroxine, 50 mcg= 1 tab(s), Oral, qHS magnesium oxide, 400 mg= 1 tab(s), Oral, qHS melatonin, 6 mg= 2 tab(s), Oral, qHS, PRN metFORMIN, 1000 mg= 2 tab(s), Oral, BID With Meals Milk of Magnesia, 30 mL, Oral, Daily, PRN Mylanta, 30 mL, Oral, QID, PRN naproxen, 500 mg= 2 tab(s), Oral, BID, PRN PANToprazole, 40 mg= 1 tab(s), Oral, Daily pregabalin, 100 mg= 1 cap(s), Oral, TID prochlorperazine, 10 mg= 1 tab(s), Oral, Daily, PRN rosuvastatin, 10 mg= 1 tab(s), Oral, qEvening valACYclovir, 500 mg= 1 tab(s), Oral, qHS Physician Re-Certification of Medical Necessity ?? I certify that inpatient psychiatric hospital admission is medically necessary for treatment which could reasonably be expected to improve the patient's condition: yes In need of ILOC due to: suicidal ideations, depression Is the patient involuntary? no Treatment Plan: ?? Treatment Plan Discussed and Reviewed with Patient:_y Receiving active treatment through medication, individual, group, and milieu therapy Electronically Signed By: RAMY GIFFORD MD Date and Time Signed: 01/20/24 14:45 EST * RAMY GIFFORD MD: MODIFY, PERFORM Event Display: Physician Progress Note Authored Date: [id number] Progress Note Subjective/24 Hour Events EMR reviewed. Discussed with nurses. The patient was seen in her room. She was awake, calm and cooperative. ?? She feels her mood is slowly improving with wellbutrin 450mg dialy and lamictal 175mg daily. Cymbalta was discontinued. She tolerates the medications well. She was informed that lamictal will be increased to 200mg toward the end of the week. ?? She denied active suicidal ideations and is safe to herself in the hospital, but she continues to have passive wishes and does not see a purpose to myself. She thinks that her family would bebetter off without her. She is also feeling that they only rely on her as her is like a 12yo since his brain surgeries for cancer and her 14yo daughter may have schizophrenia. ?? She has severe anxiety, social phobia and agoraphobia. She went to group therapy and cried when people asked her to talk to the group about herself and left the room. We talked about avoidance and phobia and how to maintain control of her anxiety, expose herself and learn to tolerate anxiety so that she will continue to be functional and able to go places she needs to go to in the future. ?? Her blood pressure remains low. She pas poor appetite and does not eat much. She tried to drink fluids. She has blood pressure medication at home, but is not able to have it now due to hypotension. She denied feeling lightheaded or dizzy. Review of Systems Slept 7h, eat meals, does ADLs, no pain reported. Objective Vitals & Measurements T:??35.7?C??(Temporal Artery)?? HR:??83??(Peripheral)?? BP:??97/64?? SpO2:??96%?? Mental Status Examination General Appearance: good eye contact, engages well in??interview with psychiatrist Muscle Strength and Tone:??No abnormal movements, no tremors Gait:??Normal Mood and Affect:??Mood depressed, affect flat, sad Speech:??Average rate, volume and prosody Thought Process:??Logical, goal-directed Associations:??Intact Thought Content:??Admitted having passive?? wishes, safe in the hospital, no homicidal ideations, no apparent delusion, paranoia or hallucinations Orientation:??oriented to time, place, date and situation Attention Span and Concentration:??Fair for interview Recent and Remote Memory:??Fair for interview Language:??Normal Fund of Knowledge:??Average Judgment and Insight:??Fair Results Lab Results Chemistry POC Glucose:??73 mg/dL??Low Assessment/Plan The patient's mood is slowly improving and stabilizing. The suicidal ideations are decreasing in intensity. She remains anxious and avoidant. She takes medications without side effects and appears tobenefit from it. She??makes an effort to??go to??group and milieu therapy but social phobia and agoraphobia limit her ability to engage. She continues to benefit from hospitalization for safety and stabilization. Diagnosis 1.??Depression 2.??Afib 3.??Diabetes 4.??Cardiomyopathy Medications Inpatient buPROPion XL, 450 mg= 3 tab(s), Oral, Daily cetirizine, 10 mg= 1 tab(s), Oral, Daily cholecalciferol, 50 mcg= 2 tab(s), Oral, Daily cyanocobalamin, 1000 mcg= 1 tab(s), Oral, Daily D10W (25 gm) ivpb, 250 mL, IV Piggyback, Protocol, PRN Dilaudid, 4 mg= 1 tab(s), Oral, BID estradiol, 1.5 mg= 3 tab(s), Oral, qEvening estradiol, 1 mg= 1 tab(s), Oral, qAM Farxiga, 5 mg= 1 tab(s), Oral, Daily glucagon, 1 mg= 1 ea, IM, Protocol, PRN HumaLOG Sliding Scale - Low Dose, 1-5 units, Subcutaneous, TID Before Meals KlonoPIN, 1 mg= 1 tab(s), Oral, BID, PRN lamoTRIgine, 175 mg= 7 tab(s), Oral, qHS levothyroxine, 50 mcg= 1 tab(s), Oral, qHS magnesium oxide, 400 mg= 1 tab(s), Oral, qHS melatonin, 6 mg= 2 tab(s), Oral, qHS, PRN metFORMIN, 1000 mg= 2 tab(s), Oral, BID With Meals Milk of Magnesia, 30 mL, Oral, Daily, PRN Mylanta, 30 mL, Oral, QID, PRN naproxen, 500 mg= 2 tab(s), Oral, BID, PRN PANToprazole, 40 mg= 1 tab(s), Oral, Daily pregabalin, 100 mg= 1 cap(s), Oral, TID prochlorperazine, 10 mg= 1 tab(s), Oral, Daily, PRN rosuvastatin, 10 mg= 1 tab(s), Oral, qEvening valACYclovir, 500 mg= 1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
--- OUTSIDE RECORDS SUMMARY | 2024-08-15 16:56 | XMS_ITS | Continuity of Care Document ---
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 Name Role Phone EDIE KERR Primary Care Physician Encounter Date(s): 01/01/24 - 01/05/24 [address], [place] [address] - Encounter Diagnosis Adjustment disorder with mixed anxiety and depressed mood(Discharge Diagnosis) - 01/02/24 Depression(Discharge Diagnosis) - 01/01/24 Cardiomyopathy(Discharge Diagnosis) - 01/02/24 Diabetes(Discharge Diagnosis) - 01/02/24 Chronic pain disorder(Discharge Diagnosis) - 01/02/24 Herpes labialis without complication(Discharge Diagnosis) - 01/02/24 Discharge Disposition: Home or Self Care Attending Physician: Guille Cobian MD Admitting Physician: Guille Cobian MD Allergies, Adverse Reactions, Alerts Substance Criticality Severity Reaction Reaction Severity Status penicillins High criticality Severe Swelling of throat Active sulfa drugs Active Assessment and Plan Extracted from: Title:Physician Progress Note - Psychiatric 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 she tolerates medications well with no c/o side effects. blood pressure remains on low side. no medication changes indicated today. will look into step down respite bed as she requests. She is willing to have psychiatrist referral to manage her medications. Adjustment disorder with mixed anxiety and depressed mood Cardiomyopathy Chronic pain disorder Depression Diabetes Herpes labialis without complication Inpatient acetaminophen, 1000 mg= 2 tab(s), Oral, q8hr, PRN albuterol inhaler, 2 puff(s), Inhaled, q4hr, PRN aspirin, 81 mg= 1 tab(s), Oral, Daily buPROPion XL, 150 mg= 1 tab(s), Oral, BID With Meals cetirizine, 10 mg= 1 tab(s), Oral, Daily cholecalciferol, 50 mcg= 2 tab(s), Oral, Daily Crestor, 10 mg= 1 tab(s), Oral, qHS Dilaudid, 4 mg= 1 tab(s), Oral, BID DULoxetine, 30 mg= 1 cap(s), Oral, Daily Entresto 97 mg-103 mg oral tablet, 1 tab(s), Oral, BID estradiol, 1 mg= 1 tab(s), Oral, BID Farxiga, 5 mg= 1 tab(s), Oral, Daily hydrOXYzine, 25 mg= 1 tab(s), Oral, q4hr, PRN KlonoPIN, 1 mg= 1 tab(s), Oral, Daily, PRN lamoTRIgine, 150 mg= 1.5 tab(s), Oral, qHS levothyroxine, 50 mcg= 1 tab(s), Oral, qHS Lyrica, 100 mg= 1 cap(s), Oral, TID magnesium oxide, 400 mg= 1 tab(s), Oral, qHS melatonin, 9 mg= 3 tab(s), Oral, qHS, PRN metFORMIN, 1000 mg= 2 tab(s), Oral, BID With Meals metoprolol tartrate, 12.5 mg= 0.5 tab(s), Oral, BID Milk of Magnesia, 30 mL, Oral, qHS, PRN naproxen, 500 mg= 2 tab(s), Oral, BID, PRN PANToprazole, 40 mg= 1 tab(s), Oral, Daily polyethylene glycol 3350, 17 gm= 1 packet(s), Oral, Daily, PRN prochlorperazine, 10 mg= 1 tab(s), Oral, Daily, PRN SUMAtriptan, 100 mg= 2 tab(s), Oral, BID, PRN valACYclovir, 500 mg= 1 tab(s), Oral, qHS Vitamin B12, 1000 mcg= 1 tab(s), Oral, Daily Home acetaminophen 500 mg oral tablet, 1000 mg= 2 tab(s), Oral, q8hr, PRN Albuterol (Eqv-ProAir HFA) 90 mcg/inh inhalation aerosol, 2 puff(s), Inhaled, q6hr, PRN aspirin 81 mg oral enteric coated tablet, 81 mg= 1 tab(s), Oral, Daily, with meal B-12 1000 mcg oral tablet, 1000 mcg= 1 tab(s), Oral, Daily cholecalciferol 50 mcg [...] BID, PRN lamoTRIgine 100 mg oral tablet, 100 mg= 1 tab(s), Oral, qHS levothyroxine 50 mcg (0.05 mg) oral tablet, [...] B2, 1 tab(s), Oral, BID, 200mg tablets Wellbutrin SR 150 mg/12 hours oral tablet, extended release, 150 mg= 1 tab(s), Oral, BID ?? I certify that inpatient psychiatric hospital admission is medically necessary for treatment which could reasonably be expected to improve the patient's condition: y_ In need of ILOC due to:_recent SI Is the patient involuntary? _n Did the patient receive a court order for involuntary medication? _n ?? Treatment Plan Discussed and Reviewed with Patient:y_ Receiving active treatment through medication, individual, group, and milieu therapy TBD Extracted from: Title:Physician Progress Note - Psychiatric Auth or:Guille Cobian MD Date:01/03/24 We now have the cardiology g o ahead to??advance the medication changes and wanted to make.?? We learned that the??pacemaker??is apparently functioning satisfactorily and has not??active??except in severe dysrhythmias.?? There is follow-up appropriate??and she apparently has missed 3??standard appointments for follow-up.?? This can be??done as an outpatient and no further cardiology??input is required unless the QTc??increases in which case we need to review the medications. Adjustment disorder with mixed anxiety and depressed mood Cardiomyopathy Chronic pain disorder Depression Diabetes Herpes labialis without complication Orders: buPROPion, 150 mg = 1 tab(s), Tab-XL, Oral, Daily, Start date 01/04/24 8:00:00 EST, Routine lamoTRIgine, 150 mg = 6 tab(s), Tab, Oral, qHS, Start date 01/03/24 21:00:00 EST, Routine EKG Advance medications as proposed Inpatient acetaminophen, 1000 mg= 2 tab(s), Oral, q8hr, PRN albuterol inhaler, 2 puff(s), Inhaled, q4hr, PRN aspirin, 81 mg= 1 tab(s), Oral, Daily buPROPion XL, 150 mg= 1 tab(s), Oral, BID With Meals buPROPion XL, 150 mg= 1 tab(s), Oral, Daily cetirizine, 10 mg= 1 tab(s), Oral, Daily cholecalciferol, 50 mcg= 2 tab(s), Oral, Daily Crestor, 10 mg= 1 tab(s), Oral, qHS Dilaudid, 4 mg= 1 tab(s), Oral, BID DULoxetine, 30 mg= 1 cap(s), Oral, Daily Entresto 97 mg-103 mg oral tablet, 1 tab(s), Oral, BID estradiol, 1 mg= 1 tab(s), Oral, BID Farxiga, 5 mg= 1 tab(s), Oral, Daily hydrOXYzine, 25 mg= 1 tab(s), Oral, q4hr, PRN KlonoPIN, 1 mg= 1 tab(s), Oral, Daily, PRN lamoTRIgine, 150 mg= 6 tab(s), Oral, qHS levothyroxine, 50 mcg= 1 tab(s), Oral, qHS Lyrica, 100 mg= 1 cap(s), Oral, TID magnesium oxide, 400 mg= 1 tab(s), Oral, qHS melatonin, 9 mg= 3 tab(s), Oral, qHS, PRN metFORMIN, 1000 mg= 2 tab(s), Oral, BID With Meals metoprolol tartrate, 12.5 mg= 0.5 tab(s), Oral, BID Milk of Magnesia, 30 mL, Oral, qHS, PRN naproxen, 500 mg= 2 tab(s), Oral, BID, PRN PANToprazole, 40 mg= 1 tab(s), Oral, Daily polyethylene glycol 3350, 17 gm= 1 packet(s), Oral, Daily, PRN prochlorperazine, 10 mg= 1 tab(s), Oral, Daily, PRN SUMAtriptan, 100 mg= 2 tab(s), Oral, BID, PRN valACYclovir, 500 mg= 1 tab(s), Oral, qHS Vitamin B12, 1000 mcg= 1 tab(s), Oral, Daily Home acetaminophen 500 mg oral tablet, 1000 mg= 2 tab(s), Oral, q8hr, PRN Albuterol (Eqv-ProAir HFA) 90 mcg/inh inhalation aerosol, 2 puff(s), Inhaled, q6hr, PRN aspirin 81 mg oral enteric coated tablet, 81 mg= 1 tab(s), Oral, Daily, with meal B-12 1000 mcg oral tablet, 1000 mcg= 1 tab(s), Oral, Daily cholecalciferol 50 mcg [...] BID, PRN lamoTRIgine 100 mg oral tablet, 100 mg= 1 tab(s), Oral, qHS levothyroxine 50 mcg (0.05 mg) oral tablet, [...] B2, 1 tab(s), Oral, BID, 200mg tablets Wellbutrin SR 150 mg/12 hours oral tablet, extended release, 150 mg= 1 tab(s), Oral, BID ?? I certify that inpatient psychiatric hospital admission is medically necessary for treatment which could reasonably be expected to improve the patient's condition: _Yes In need of ILOC due to??depression Is the patient involuntary? ??No_ ?? Treatment Plan Discussed and Reviewed with Patient:??Yes_ Receiving active treatment through medication, individual, group, and milieu therapy Midweek next Extracted from: Title:History & Physical - Psychiatric Author:Blanca Cobian MD Date:01/02/24 Reason for Admission Crisis reports??that they responded due to the client endorsing symptoms of??SI and depression??client reported??suicide attempt on??12/30/23??by hanging??but the??cord broke Substance Abuse History Patient scored 0 on the??CAGE.?? She is a former??tobacco user??does not use alcohol or drugs Mental Status Exam We meet in the day room with primary nurse in attendance. ??The patient is alert??and oriented in all 4 spheres,??and to situation.?? They are??casually dressed??with acceptable hygiene.?? The behavior is appropriate and they are engaged in the interview.?? Psychomotor energy is normal and there are no tics,??tremors, or involuntary movements.?? Speech??is normal dillan, tone, and volume??without conversational lag.?? Mood is??depressed??and affect is congruent and appropriate. ??Thought process is logical and goal oriented, sequential in nature??with tight associations??and it is future oriented.?? Thought content is without??expressed or observed??hallucination or delusion. ??Memory is intact to recent events as tested by known items. There is no self-harm expression.?There is no current suicidal??fantasy intent or plan, or homicidal expression.?? There are no prominent cognitive distortions.?? Insight and judgment are fair, attention and concentration are intact.??Impulse control is intact. ??Knowledge is appropriate for level of education. ?? Assessment/Plan The diagnosis of best fit is adjustment disorder with depressed mood.?? She is dealing with 3??significant stressors: The first being her??medical problems, the second being a carrier of a 13-year-old??special needs??teenager with??mental health and behavioral issues??requiring??programmatic assistance??and the third is??her ex-/life partner who has??a traumatic brain injury.?? The daughter is currently safely housed with??extended family resources??and the is able to manage himself.?? She presents with??anxiety depression??and hopelessness.?? The suicidal thinking has past??and??there were no complications from??her self- reported event.?? We talked about??options for her treatment and she requires redirection??from talking about her and daughter.?? Once we are able to focus??her attention??upon her situation??she identifies that the medication change??from long-term paroxetine??has lost some of its initial success and we should evaluate medication changes.?? She also request that the??hydromorphone dosing be scheduled rather than as needed.?? I will consult cardiology but there is no urgency and??it can wait until??the weekday to be sorted out. Diagnosis Depression Adjustment disorder with depressed mood Orders: Medication History Documented Cardiomyopathy??with congestive heart failure Diabetes type 2 Chronic pain ?? Plan We will need to consult with cardiology before increasing the lamotrigine or the??bupropion doses. ??Ideally we will be able to accomplish medication adjustment??of psychotropics. ??Cardiology consult??electively to review postoperative??status of defibrillator??and??medication treatment options, Functional Status 01/05/24 ADLs Independent Medications Albuterol (Eqv-ProAir HFA) 90 mcg/inh inhalation aerosol 2 puff(s), Inhaled, q6hr, PRN PRN shortness of breath or wheezing Start Date: 01/01/24 Status: Ordered aspirin 81 mg oral enteric coated tablet 81 mg = 1 tab(s), Oral, Daily, with meal Start Date: 01/01/24 Status: Ordered B-12 1000 mcg oral tablet 1,000 mcg = 1 tab(s), Oral, Daily Start Date: 01/01/24 Status: Ordered buPROPion 150 mg/24 hours (XL) oral tablet, extended release 150 mg = 1 tab(s), Oral, BID With Meals, # 28 tab(s), 1 Refill(s), Pharmacy: [id number], 153.5, cm, Height/Length Dosing, 01/01/24 17:31:00 EST, 89, kg, 01/01/24 17:31:00 EST, Weight Dosing Start Date: 01/05/24 Stop Date: 02/02/24 Status: Ordered cholecalciferol 50 mcg (2000 intl units) oral tablet 50 mcg = 1 tab(s), Oral, Daily Start Date: 01/01/24 Status: Ordered Dilaudid 2 mg oral tablet 4 mg = 2 tab(s), Oral, BID, PRN PRN: pain, 0 Refill(s) Start Date: 12/28/18 Status: Ordered DULoxetine 30 mg oral delayed release capsule 30 mg = 1 cap(s), Oral, Daily Start Date: 01/01/24 Status: Ordered Entresto 97 mg-103 mg oral [...] Oral, BID Start Date: 01/01/24 Status: Ordered KlonoPIN 1 mg oral tablet 1 mg = 1 tab(s), Oral, BID, PRN PRN: agitation/anxiety, 0 Refill(s) Start Date: 12/28/18 Status: Ordered lamoTRIgine 100 mg oral tablet 150 mg = 1.5 tab(s), Oral, qHS, # 21 tab(s), 1 Refill(s), Pharmacy: [id number], 153.5, cm, 01/01/24 17:31:00 EST, Height/Length Dosing, 89, kg, 01/01/24 17:31:00 EST, Weight Dosing Start Date: 01/05/24 Stop Date: 02/02/24 Status: Ordered levothyroxine 50 mcg (0.05 mg) [...] Start Date: 01/01/24 Status: Ordered metoprolol tartrate 12.5 mg = 0.5 tab(s), Tab, Oral, Start date 01/03/24 9:00:00 PM EST Start Date: 01/03/24 Stop Date: 01/03/24 Status: Completed metoprolol tartrate 25 mg oral tablet 12.5 mg = 0.5 tab(s), Oral, BID Start Date: 01/01/24 Status: Ordered naproxen 250 mg oral tablet 500 mg = 2 tab(s), Oral, BID, PRN PRN: pain, 0 Refill(s) Start Date: 12/28/18 Status: Ordered naratriptan 2.5 mg oral tablet [...] = 1 tab(s), Oral, Daily, PRN PRN: headache Start Date: 01/01/24 Status: Ordered rosuvastatin 10 mg oral tablet 10 mg = 1 tab(s), Oral, qEvening Start Date: 01/01/24 Status: Ordered Trulicity Pen 3 mg/0.5 mL subcutaneous solution 3 mg, Subcutaneous, Thur, once weekly, rotate injection sites Start Date: 01/01/24 Status: Ordered valACYclovir 500 mg oral tablet 500 mg = 1 tab(s), Oral, qHS, 0 Refill(s) Start Date: 12/28/18 Status: Ordered Vitamin B2 = 1 tab(s), Oral, BID, 200mg tablets Start Date: 01/01/24 Status: Ordered Mental Status 01/05/24 Level of Consciousness Alert Orientation Assessment Oriented x 4 Problem List Condition Confirmation Course Effective Dates Status H ealth Status Informant ICD (implantable cardioverter-defibril lator) in place Confirmed Active Diabetes Confirmed Active Cardiomyopathy, familial Confirmed Active Anxiety and depression Confirmed Active Nonocclusive coronary atherosclerosis of [place] coronary artery Confirmed Active Vital Signs Most recent to oldest [Reference Range]: 1 2 3 Temperature Temporal Artery [36.3-37.8 DegC] 36.9 DegC (01/05/24 7:46 AM) 36.2 DegC *LOW* (01/04/24 7:33 AM) 36.1 DegC *LOW* (01/03/24 7:30 AM) Peripheral Pulse Rate [60-100 bpm] 78 bpm (01/05/24 9:02 AM) 81 bpm (01/05/24 7:46 AM) 83 bpm (01/04/24 8:20 PM) Respiratory Rate [14-20 br/min] 18 br/min (01/04/24 8:20 PM) 16 br/min (01/01/24 5:31 PM) Blood Pressure [90-140/60-90 mmHg] 96/57mmHg (01/04/24 8:20 PM) 96/61mmHg (01/04/24 7:33 AM) 98/72mmHg (01/03/24 7:59 PM) Blood Pressure 86/60mmHg (01/05/24 9:02 AM) 88/62mmHg (01/05/24 7:46 AM) 90/66mmHg (01/04/24 9:10 AM) Mean Arterial Presure, Manual 88 mmHg (01/01/24 5:31 PM) Social History Social History Type Response Smoking Status Current every day sm timier; Type: Cigarettes 1 entered on: 12/25/18 Sex Female 1half pack a day Hospital Discharge Instructions Patient Education 01/05/2024 09:25:00 Mindfulness-Based Stress Reduction Mindfulness-Based Stress Reduction Mindfulness-based stress reduction (MBSR) is a program that helps people learn to practice mindfulness. Mindfulness is the practice of consciously paying attention to the present moment. MBSR focuseson developing self-awareness, which lets you respond to life stress without judgment or negative feelings. It can be learned and practiced through techniques such as education, breathing exercises, meditation, and yoga. MBSR includes several mindfulness techniques in one program. MBSR works best when you understand the treatment, are willing to try new things, and can commit tospending time practicing what you learn. MBSR training may include learning about: ??? How your feelings, thoughts, and reactions affect your body. ??? New ways to respond to things that cause negative thoughts to start (triggers). ??? How to notice your thoughts and let go of them. ??? Practicing awareness of everyday things that you normally do without thinking. ??? The techniques and goals of different types of meditation. What are the benefits of MBSR? MBSR can have many benefits, which include helping you to: ??? Develop self-awareness. This means knowing and understanding yourself. ??? Learn skills and attitudes that help you to take part in your own health care. ??? Learn new ways to care for yourself. ??? Be more accepting about how things are, and let things go. ??? Be less judgmental and approach things with an open mind. ??? Be patient with yourself and trust yourself more. MBSR has also been shown to: ??? Reduce negative emotions, such as sadness, overwhelm, and worry. ??? Improve memory and focus. ??? Change how you sense and react to pain. ??? Boost your body's ability to fight infections. ??? Help you connect better with other people. ??? Improve your sense of well-being. How to practice mindfulness To do a basic awareness exercise: ??? Find a comfortable place to sit. ??? Pay attention to the present moment. Notice your thoughts, feelings, and surroundings just as they are. ??? Avoid judging yourself, your feelings, or your surroundings. Make note of any judgment that comes up and let it go. ??? Your mind may wander, and that is okay. Make note of when your thoughts drift, and return your attention to the present moment. To do basic mindfulness meditation: ??? Find a comfortable place to sit. This may include a stable chair or a firm floor cushion. ??? Sit upright with your back straight. Let your arms fall next to your sides, with your hands resting on your legs. ??? If you are sitting in a chair, rest your feet flat on the floor. ??? If you are sitting on a cushion, cross your legs in front of you. ??? Keep your head in a neutral position with your chin dropped slightly. Relax your jaw and rest the tip of your tongue on the roof of your mouth. Drop your gaze to the floor or close your eyes. ??? Breathe normally and pay attention to your breath. Feel the air moving in and out of your nose.Feel your belly expanding and relaxing with each breath. ??? Your mind may wander, and that is okay. Make note of when your thoughts drift, and return your attention to your breath. ??? Avoid judging yourself, your feelings, or your surroundings. Make note of any judgment or feelings that come up, let them go, and bring your attention back to your breath. ??? When you are ready, lift your gaze or open your eyes. Pay attention to how your body feels after the meditation. Follow these instructions at home: ??? Find a local in-person or online MBSR program. ??? Set aside some time regularly for mindfulness practice. Practice every day if you can. Even 10 minutes of practice is helpful. ??? Find a mindfulness practice that works best for you. This may include one or more of the following: ??? Meditation. This involves focusing your mind on a certain thought or activity. ??? Breathing awareness exercises. These help you to stay present by focusing on your breath. ??? Body scan. For this practice, you lie down and pay attention to each part of your body from head to toe. You can identify tension and soreness and consciously relax parts of your body. ??? Yoga. Yoga involves stretching and breathing, and it can improve your ability to move and be flexible. It can also help you to test your body's limits, which can help you release stress. ??? Mindful eating. This way of eating involves focusing on the taste, texture, color, and smell ofeach bite of food. This slows down eating and helps you feel full sooner. For this reason, it can be an important part of a weight loss plan. ??? Find a podcast or recording that provides guidance for breathing awareness, body scan, or meditation exercises. You can listen to these any time when you have a free moment to rest without distractions. ??? Follow your treatment plan as told by your health care provider. This may include taking regular medicines and making changes to your diet or lifestyle as recommended. Where to find more information You can find more information about MBSR from: ??? Your health care provider. ??? Community-based meditation centers or programs. ??? Programs offered near you. Summary ??? Mindfulness-based stress reduction (MBSR) is a program that teaches you how to consciously pay attention to the present moment. It is used to help you deal better with daily stress, feelings, andpain. ??? MBSR focuses on developing self-awareness, which allows you to respond to life stress without judgment or negative feelings. ??? MBSR programs may involve learning different mindfulness practices, such as breathing exercises, meditation, yoga, body scan, or mindful eating. Find a mindfulness practice that works best for you, and set aside time for it on a regular basis. This information is not intended to replace advice given to you by your health care provider. Make sure you discuss any questions you have with your health care provider. Document Revised: 06/19/2022 Document Reviewed: 06/19/2022 [email or web address] Patient Education ?? 2022 [email or web address]. 01/05/2024 09:25:00 Diabetes Mellitus Basics Diabetes Mellitus Basics Diabetes mellitus, or diabetes, is a long-term (chronic) disease. It occurs when the body does not properly use sugar (glucose) that is released from food after you eat. Diabetes mellitus may be caused by one or both of these problems: ??? Your pancreas does not make enough of a hormone called insulin. ??? Your body does not react in a normal way to the insulin that it makes. Insulin lets glucose enter cells in your body. This gives you energy. If you have diabetes, glucosecannot get into cells. This causes high blood glucose (hyperglycemia). How to treat and manage diabetes You may need to take insulin or other diabetes medicines daily to keep your glucose in balance. If you are prescribed insulin, you will learn how to give yourself insulin by injection. You may need to adjust the amount of insulin you take based on the foods that you eat. You will need to check your blood glucose levels using a glucose monitor as told by your health care provider. The readings can help determine if you have low or high blood glucose. Generally, you should have these blood glucose levels: ??? Before meals (preprandial): 80???130 mg/dL (4.4???7.2 mmol/L). ??? After meals (postprandial): below 180 mg/dL (10 mmol/L). ??? Hemoglobin A1c (HbA1c) level: less than 7%. Your health care provider will set treatment goals for you. Keep all follow-up visits. This is important. Follow these instructions at home: Diabetes medicines Take your diabetes medicines every day as told by your health care provider. List your diabetes medicines here: ??? Name of medicine: ??? Amount (dose): Time (a.m./p.m.): Notes: ??? Name of medicine: ??? Amount (dose): Time (a.m./p.m.): Notes: ??? Name of medicine: ??? Amount (dose): Time (a.m./p.m.): Notes: Insulin If you use insulin, list the types of insulin you use here: ??? Insulin type: ??? Amount (dose): Time (a.m./p.m.): Notes: ??? Insulin type: ??? Amount (dose): Time (a.m./p.m.): Notes: ??? Insulin type: ??? Amount (dose): Time (a.m./p.m.): Notes: ??? Insulin type: ??? Amount (dose): Time (a.m./p.m.): Notes: ??? Insulin type: ??? Amount (dose): Time (a.m./p.m.): Notes: Managing blood glucose Check your blood glucose levels using a glucose monitor as told by your health care provider. Write down the times that you check your glucose levels here: ??? Time: Notes: ??? Time: Notes: ??? Time: Notes: ??? Time: Notes: ??? Time: Notes: ??? Time: Notes: Low blood glucose Low blood glucose (hypoglycemia) is when glucose is at or below 70 mg/dL (3.9 mmol/L). Symptoms mayinclude: ??? Feeling: ??? Hungry. ??? Sweaty and clammy. ??? Irritable or easily upset. ??? Dizzy. ??? Sleepy. ??? Having: ??? A fast heartbeat. ??? A headache. ??? A change in your vision. ??? Numbness around the mouth, lips, or tongue. ??? Having trouble with: ??? Moving (coordination). ??? Sleeping. Treating low blood glucose To treat low blood glucose, eat or drink something containing sugar right away. If you can think clearly and swallow safely, follow the 15:15 rule: ??? Take 15 grams of a fast-acting carb (carbohydrate), as told by your health care provider. ??? Some fast-acting carbs are: ??? Glucose tablets: take 3???4 tablets. ??? Hard candy: eat 3???5 pieces. ??? Fruit juice: drink 4 oz (120 mL). ??? Regular (not diet) soda: drink 4???6 oz (120???180 mL). ??? Honey or sugar: eat 1 Tbsp (15 mL). ??? Check your blood glucose levels 15 minutes after you take the carb. ??? If your glucose is still at or below 70 mg/dL (3.9 mmol/L), take 15 grams of a carb again. ??? If your glucose does not go above 70 mg/dL (3.9 mmol/L) after 3 tries, get help right away. ??? After your glucose goes back to normal, eat a meal or a snack within 1 hour. Treating very low blood glucose If your glucose is at or below 54 mg/dL (3 mmol/L), you have very low blood glucose (severe hypoglycemia). This is an emergency. Do not wait to see if the symptoms will go away. Get medical help right away.Call your local emergency services (911 in the [place] Do not drive yourself to the hospital. Questions to ask your health care provider ??? Should I talk with a environmental educator? What equipment will I need to care for myself at home? What diabetes medicines do I need? When should I take them? How often do I need to check my blood glucose levels? What number can I call if I have questions? When is my follow-up visit? Where can I find a support group for people with diabetes? Where to find more information ??? [place] [employer]: www.diabetes.org ??? Association of Diabetes Care and Education Specialists: www.diabeteseducator.org Contact a health care provider if: ??? Your blood glucose is at or above 240 mg/dL (13.3 mmol/L) for 2 days in a row. ??? You have been sick or have had a fever for 2 days or more, and you are not getting better. ??? You have any of these problems for more than 6 hours: ??? You cannot eat or drink. ??? You feel nauseous. ??? You vomit. ??? You have diarrhea. Get help right away if: ??? Your blood glucose is lower than 54 mg/dL (3 mmol/L). ??? You get confused. ??? You have trouble thinking clearly. ??? You have trouble breathing. These symptoms may represent a serious problem that is an emergency. Do not wait to see if the symptoms will go away. Get medical help right away. Call your local emergency services (911 in the [place] Do not drive yourself to the hospital. Summary ??? Diabetes mellitus is a chronic disease that occurs when the body does not properly use sugar (glucose) that is released from food after you eat. ??? Take insulin and diabetes medicines as told. ??? Check your blood glucose every day, as often as told. ??? Keep all follow-up visits. This is important. This information is not intended to replace advice given to you by your health care provider. Make sure you discuss any questions you have with your health care provider. Document Revised: 03/12/2021 Document Reviewed: 03/12/2021 [email or web address] Patient Education ?? 2022 [email or web address]. 01/05/2024 09:25:00 Cardiomyopathy, Adult Cardiomyopathy, Adult Cardiomyopathy is a disease of the heart muscle. The disease makes the heart muscle thick, weak, orstiff. As a result, the heart works harder to pump blood. Over time, cardiomyopathy can lead to an irregular heartbeat (arrhythmia) and a condition in which the heart has trouble pumping blood throughout the body (heart failure). There are several types of cardiomyopathy. The kind of cardiomyopathy that you have depends on how the heart is affected and which part of the heart is affected. What are the causes? This condition may be caused by: ??? A medical condition that damages the heart, such as diabetes, high blood pressure, heart attack, or a viral infection. ??? Diseases of the immune system, connective tissues, or endocrine system. ??? Too much iron in the body (hemochromatosis). ??? Cancer treatments. ??? Environmental exposure to toxins such as lead or mercury. ??? A leaking or tight heart valve. Other causes may include: ??? Heavy use of alcohol or drugs, or taking certain medicines. ??? . ??? Extreme stress. In some cases, the cause is not known. What increases the risk? You are more likely to develop this condition if: ??? You have a gene that is passed down (inherited) from a family member. ??? You are overweight or obese. What are the signs or symptoms? Often, people with this condition have no symptoms. If you do have symptoms, they may include: ??? Shortness of breath, especially during activity. ??? Tiredness (fatigue). ??? An arrhythmia. ??? Feeling dizzy or light-headed, or fainting. ??? Chest pain. ??? Coughing. ??? Swelling of the legs, feet, or abdomen. How is this diagnosed? This condition is diagnosed based on: ??? Your symptoms and medical history. ??? A physical exam. ??? Blood tests. ??? A chest X-ray. ??? Other tests, such as: ??? An echocardiogram, which is an ultrasound of the heart. ??? A cardiac stress test. ??? Cardiac catheterization and coronary angiogram. ??? Heart tissue biopsy. ??? An MRI of the heart. ??? A portable heart monitor that records your heart's electrical activity (event monitor). ??? An electrocardiogram (ECG or EKG). How is this treated? Your treatment depends on the type and severity of your symptoms. Treatment may include: ??? Healthy lifestyle changes. ??? Medicines to: ??? Treat high blood pressure, abnormal heart rate, or inflammation. ??? Strengthen your heart muscle. ??? Remove excess fluids from your body. ??? Balance minerals (electrolytes) in your body and get rid of extra sodium in your body. ??? Prevent blood clots. ??? Surgery to: ??? Repair a heart defect, remove heart tissue, or destroy tissues in the area of abnormal electrical activity (ablation). ??? Implant a device to treat serious heart rhythm problems such as a pacemaker or a defibrillator. ??? Implant a pressure monitoring system to monitor your fluid balance. ??? Fix or replace a bad heart valve in your heart. ??? Replace your heart with a healthy heart. This is done if all other treatments have failed. Other treatments may include cardiac resynchronization therapy (DOOR LINER). This involves a type of pacemaker or defibrillator that restores the heart's normal beating pattern and helps strengthen the heart's ability to contract. Follow these instructions at home: Medicines ??? Take tgwf-ika-gxshhuy and prescription medicines only as told by your health care provider. Some medicines can be dangerous for your heart. ??? If you are prescribed a blood thinner, make sure you understand what to do in a bleeding situation. Lifestyle ??? Eat a heart-healthy diet that includes plenty of fruits, vegetables, whole grains, and foods that are low in salt (sodium). ??? Maintain a healthy weight. ??? Stay physically active. Ask your health care provider what activities are safe for you. ??? Do not use any products that contain nicotine or tobacco. These products include cigarettes, chewing tobacco, and vaping devices, such as e-cigarettes. If you need help quitting, ask your health care provider. ??? Try to get at least 7 hours of sleep each night. ??? Find healthy ways to manage stress. ??? Weigh yourself every day in the morning. Alcohol use ??? Do not drink alcohol if: ??? Your health care provider tells you not to drink. ??? You are , may be , or are planning to become . ??? If you drink alcohol: ??? Limit how much you have to: ??? 0???1 drink a day for women. ??? 0???2 drinks a day for men. ??? Know how much alcohol is in your drink. In the [place] one drink equals one 12 oz bottle of beer (355 mL), one 5 oz glass of wine (148 mL), or one 1?? oz glass of hard liquor (44 mL). General instructions ??? Ask your health care provider if you should wear a medical identification bracelet. This may beimportant if you have a pacemaker or a defibrillator. ??? Get all needed vaccines. Get a flu shot every year. ??? Work closely with your health care provider to manage any other chronic conditions. ??? If you plan to start a family, talk with a genetic counselor to discuss the risk of having a child with cardiomyopathy. ??? Keep all follow-up visits. This is important, even if you do not have any symptoms. Your healthcare provider may need to make sure your condition is not getting worse. Where to find more information ??? [place] [employer]: www.heart.org ??? National Institutes of Health; National Heart, Lung, and Blood [place]: www.nhlbi.nih.gov Contact a health care provider if: ??? You gain 2???3 lb (1???1.4 kg) overnight or 4???5 lb (1.8???2.3 kg) in a week. ??? You have new symptoms. ??? Your symptoms get worse. Get help right away if: ??? You have severe chest pain. ??? You have shortness of breath. ??? You cough up a pink, bubbly substance. ??? You feel nauseous and you vomit. ??? You suddenly become light-headed or dizzy. ??? You feel your heart beating very quickly. ??? You feel like your heart is skipping beats. These symptoms may represent a serious problem that is an emergency. Do not wait to see if the symptoms will go away. Get medical help right away. Call your local emergency services (911 in the [place] Do not drive yourself to the hospital. Summary ??? Cardiomyopathy is a disease of the heart muscle. ??? Over time, cardiomyopathy can lead to an irregular heartbeat (arrhythmia) and heart failure. ??? A number of treatments are available for this condition. Your treatment will depend on the typeand severity of your symptoms. ??? Follow your health care provider's instructions on diet, medicines, physical activity, and whento seek help. This information is not intended to replace advice given to you by your health care provider. Make sure you discuss any questions you have with your health care provider. Document Revised: 03/09/2022 Document Reviewed: 03/09/2022 [email or web address] Patient Education ?? 2022 [email or web address]. 01/05/2024 09:25:00 Chronic Pain, Adult Chronic Pain, Adult Chronic pain is a type of pain that lasts or keeps coming back for at least 3???6 months. You may have headaches, pain in the abdomen, or pain in other areas of the body. Chronic pain may be related to an illness, injury, or a health condition. Sometimes, the cause of chronic pain is not known. Chronic pain can make it hard for you to do daily activities. If it is not treated, chronic pain can lead to anxiety and depression. Treatment depends on the cause of your pain and how severe it is. You may need to work with a pain specialist to come up with a treatment plan. Many people benefit from two or more types of treatment to control their pain. Follow these instructions at home: Treatment plan Follow your treatment plan as told by your health care provider. This may include: ??? Gentle, regular exercise. ??? Eating a healthy diet that includes foods such as vegetables, fruits, fish, and lean meats. ??? Mental health therapy (cognitive or behavioral therapy) that changes the way you think or act in response to the pain. This may help improve how you feel. ??? Doing physical therapy exercises to improve movement and strength. ??? Meditation, yoga, acupuncture, or massage therapy. ??? Using the oils from plants in your environment or on your skin (aromatherapy). Other treatments may include: ??? Fswn-zlx-qurktpe or prescription medicines. ??? Color, light, or sound therapy. ??? Local electrical stimulation. The electrical pulses help to relieve pain by temporarily stopping the nerve impulses that cause you to feel pain. ??? Injections. These deliver numbing or pain-relieving medicines into the spine or the area of pain. Medicines ??? Take qsqf-zzb-oxqhyoc and prescription medicines only as told by your health care provider. ??? Ask your health care provider if the medicine prescribed to you: ??? Requires you to avoid driving or using machinery. ??? Can cause constipation. You may need to take these actions to prevent or treat constipation: ??? Drink enough fluid to keep your urine pale yellow. ??? Take vamq-ucb-hkkgego or prescription medicines. ??? Eat foods that are high in fiber, such as beans, whole grains, and fresh fruits and vegetables. ??? Limit foods that are high in fat and processed sugars, such as fried or sweet foods. Lifestyle ??? Ask your health care provider whether you should keep a pain diary. Your health care provider will tell you what information to write in the diary. This may include: ??? When you have pain. ??? What the pain feels like. ??? How medicines and other behaviors or treatments help to reduce the pain. ??? Consider talking with a mental health care provider about how to help manage chronic pain. ??? Consider joining a chronic pain support group. ??? Try to control or lower your stress levels. Talk with your health care provider about ways to do this. General instructions ??? Learn as much as you can about how to manage your chronic pain. Ask your health care provider if an intensive pain rehabilitation program or a chronic pain specialist would be helpful. ??? Check your pain level as told by your health care provider. Ask your health care provider if you should use a pain scale. Contact a health care provider if: ??? Your pain is not controlled with treatment. ??? You have new pain. ??? You have side effects from pain medicine. ??? You feel weak or you have trouble doing your normal activities. ??? You have trouble sleeping or you develop confusion. ??? You lose feeling or have numbness in your body. ??? You lose control of your bowels or bladder. Get help right away if: ??? Your pain suddenly gets much worse. ??? You develop chest pain. ??? You have trouble breathing or shortness of breath. ??? You faint, or another person sees you faint. These symptoms may be an emergency. Get help right away. Call 911. ??? Do not wait to see if the symptoms will go away. ??? Do not drive yourself to the hospital. Also, get help right away if: ??? You have thoughts about hurting yourself or others. Take one of these steps if you feel like you may hurt yourself or others, or have thoughts about taking your own life: ??? Go to your nearest emergency room. ??? Call 911. ??? Call the National Suicide Prevention Lifeline at or 380. This is open 24 hours aday. ??? Text the Crisis Text Line at 659028. This information is not intended to replace advice given to you by your health care provider. Make sure you discuss any questions you have with your health care provider. Document Revised: 07/01/2023 Document Reviewed: 06/03/2023 [email or web address] Patient Education ?? 2022 [employer]. 01/05/2024 09:25:00 Adjustment Disorder, Adult Adjustment Disorder, Adult Adjustment disorder is a group of symptoms that can develop after a stressful life event, such as the loss of a job or a serious physical illness. The symptoms can affect how you feel, think, and act. They may also interfere with your relationships. Adjustment disorder increases your risk of suicide and substance abuse. If adjustment disorder is not managed early, it can make medical conditions that you already have worse. If the stressful life event persists, the disorder may continue and become a persistent form of adjustment disorder. What are the causes? This condition is caused by difficulty recovering from or coping with a stressful life event. What increases the risk? You are more likely to develop this condition if: ??? You have had previous problems coping with life stressors. ??? You are being treated for a long-term (chronic) illness. ??? You are being treated for an illness that cannot be cured (terminal illness). ??? You have a family history of mental illness. What are the signs or symptoms? Symptoms of this condition include: ??? Behavioral symptoms such as: ??? Trouble doing daily tasks. ??? Reckless driving. ??? Poor work performance. ??? Ignoring bills. ??? Avoiding family and friends. ??? Impulsive actions. ??? Emotional symptoms such as: ??? Sadness, depression, or crying spells. ??? Worrying a lot, or feeling nervous or anxious. ??? Loss of enjoyment. ??? Feelings of loss or hopelessness. ??? Irritability. ??? Thoughts of suicide. ??? Physical symptoms such as: ??? Change in appetite or weight. ??? Complaining of feeling sick without being ill. ??? Feeling dazed or disconnected. ??? Nightmares. ??? Trouble sleeping. Symptoms of this condition start within 3 months of the stressful event. They do not last more than6 months, unless the stressful circumstances last longer. Normal grieving after the of a loved one is not a symptom of this condition. How is this diagnosed? To diagnose this condition, your health care provider will ask about what has happened in your lifeand how it has affected you. He or she may also ask about your medical history and your use of medicines, alcohol, and other substances. Your health care provider may do a physical exam and order labtests or other studies. You may be referred to a mental health specialist. How is this treated? Treatment options for this condition include: ??? Counseling or talk therapy. Talk therapy is usually provided by mental health specialists. Thistherapy may be individual or may involve family members. ??? Medicines. Certain medicines may help with depression, anxiety, and sleep. ??? Support groups. These offer emotional support, advice, and guidance. They are made up of peoplewho have had similar experiences. ??? Observation and time. This is sometimes called watchful waiting. In this treatment, health careproviders monitor your health and behavior without other treatment. Adjustment disorder sometimes gets better on its own with time. Follow these instructions at home: ??? Take xdna-qci-lbpjmus and prescription medicines only as told by your health care provider. ??? Keep all follow-up visits. This is important. ??? Contact trusted family and friends for support. Let them know what is going on with you and howthey can help. Contact a health care provider if: ??? Your symptoms do not improve in 6 months. ??? Your symptoms get worse. Get help right away if: ??? You have serious thoughts about hurting yourself or someone else. If you ever feel like you may hurt yourself or others, or have thoughts about taking your own life,get help right away. Go to your nearest emergency department or: ??? Call your local emergency services (618 in the [place] ??? Call a suicide crisis helpline, such as the National Suicide Prevention Lifeline at or 762 in the [place] This is open 24 hours a day in the [place] ??? Text the Crisis Text Line at 124495 (in the [place] Summary ??? Adjustment disorder is a group of symptoms that can develop after a stressful life event, such as the loss of a job or a serious physical illness. The symptoms can affect how you feel, think, andact. They may interfere with your relationships. ??? Symptoms of this condition start within 3 months of the stressful event. They do not last more than 6 months, unless the stressful circumstances last longer. ??? Treatment may include talk therapy, medicines, participation in a support group, or observationto see if symptoms improve. ??? Contact your health care provider if your symptoms get worse or do not improve in 6 months. ??? If you ever feel like you may hurt yourself or others, or have thoughts about taking your own life, get help right away. This information is not intended to replace advice given to you by your health care provider. Make sure you discuss any questions you have with your health care provider. Document Revised: 06/04/2022 Document Reviewed: 03/22/2021 [email or web address] Patient Education ?? 2022 [email or web address] Consult note * TK DICKINSON MD: PERFORM Event Display: Consultation Authored Date: [id number] Consultation Note History of Present Illness CARDIOLOGY CONSULT NOTE Cardiology has been consulted for the assessment of medication therapy changes in setting of known cardiomyopathy ? This is a 48-year-old female patient with a reported history of nonischemic familial cardiomyopathy followed at [facility]??(EF 37 to 43%), chronic heart failure with reduced ejection fraction,??nonocclusive coronary artery disease, preventative subcutaneous ICD, history of tobacco use nowquit, diabetes and obesity who presents??to the psychiatric team at [facility]??electively for??symptoms of suicidal ideations and depression.?? The patient??has agreed to inpatient treatment to adjust her medical therapies.?? Cardiology has been consulted by the psychiatric team??to aid??in the unders tanding of any??potential risk to??titrating her medical therapies in light of her??known cardiomyopathy.?? The patient's??full medical records are unavailable at this time??but she is followed by the [facility] team.?? She has been dealing with a cardiomyopathy for a long time since at least 2010.?? The patient??recently had a subcutaneous ICD for preventative??acknowledgment of??the risk for ventricular arrhythmias.?? She has had cardiac catheterizations that showed no significant??progressionof coronary disease although she is known to have some mild??nonocclusive blockages.?? She has no active cardiac symptoms at the moment.?? We reviewed??the psychiatric team's concern regarding her heart today. Review of Systems GEN/CONST: No fevers, chills, malaise. No weight changes. HEENT: No visual defects. No change in taste, smell or hearing. No rhinorrhea. No sore throats. NECK: No neck pain. CV: No chest pain; No palpitations; No lightheadedness, dizziness or feinting.?? PULM: No SOB; No AMARO; No coughing, wheezing or secretions. ABDN/GI: No abdominal pain; No nausea, vomiting, diarrhea or constipation.?? : No dysuria, no hematuria BACK: No back pain; no CVA tenderness. MSK: No arm pains; No generalized aches; No arthritis NEURO: No focal neurological changes; No weakness ENDO: No night sweats; no hot or cold flashes. DERM: No skin rashes or lesions. PSYCH: + Depressed mood or anxiety *ALL OTHER SYSTEMS REVIEWED ARE NEGATIVE* Physical Exam Vitals & Measurements T:??36.1?C??(Temporal Artery)?? HR:??80??(Peripheral)?? BP:??85/61?? SpO2:??95%?? GEN: Middle-aged overweight female patient appears to be stated age; NAD; Resting upright??comfortably in psychiatric??bed HEENT: EOMI; No scleral icterus or erythema NECK: Supple; No JVD; No carotid bruits. CV: Normal S1/S2; RRR; No murmurs, rubs or gallops. PULM: Anterior and posterior breath sounds are normal; No wheezes, rhonchi or crackles. ABDOM/GI: Soft, Non-tender; Non-distended; BS+?? MSK: AROM x 4; Strength grossly normal. Gait normal. EXT: No LE edema; no cyanosis; capillary refill is normal. Radial Pulses 2+ NEURO: AAO x 3; No focal deficits noted. Sensation grossly intact. DERM: No rashes. No lesions. PSYCH: Mood is??flat; Affect is normal. Speech is normal. Lab Results No up-to-date lab work Diagnostic Results # EKG: Normal sinus rhythm,??low voltage,??poor R wave progression, QT??444 Additional Data Reviewed Previous records not available Assessment/Plan ? 48-year-old female patient??with familial cardiomyopathy followed at [facility]??(EF 37 to 43%), chronic heart failure with reduced ejection fraction,??nonocclusive coronary artery disease, preventative subcutaneous ICD, history of tobacco use now quit, diabetes and obesity.?? She appears to be clinically stable at the moment with regards to her cardiac disease.?? She is presenting to thehospital??for elective psychiatric??medication titration.?? Specifically they were considering increasing??her lamotrigine??and potentially adding Wellbutrin.?? While most??psychiatric medicines havewarnings regarding??potential cardiac effects,??these medicines are not known to be a??strict contraindication??to patients with??cardiomyopathy.?? All medicines trialed should be evaluated for potential??changes to her cardiac status.?? A??twelve-lead EKG to determine QT??changes??or potential rhythm changes is recommended??when making dose adjustments.?? There is always risk benefit when adjusting medical therapies especially in light??of the patient's current medication list.?? I would be cautious suggesting??or adding any medicines??that potentially prolong the QT??to abnormal levels??given the possibility of??ventricular arrhythmias.?? Please review any??new medications for potential QT interactions??and dose??cautiously and appropriately following protocol.?? With regards to the patient's??ICD follow-up,??apparently she has missed??her most routine visit. ??I reviewed that she needs to follow-up with them.?? She is not happy about the pocket??where the subcutaneous ICD has??formed and it is a little bit uncomfortable.?? She may need to have this adjusted.?? She is otherwise reporting no significant problems with the device.?? Outpatient follow-up is appropriate for this. ?? Plan: #1:?? Medication titration??in setting of known cardiomyopathy: -Certainly there exist the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 complication Discharge Medication List Home Medications (32) Active Albuterol (Eqv-ProAir HFA) 90 mcg/inh inhalation aerosol??2 puff(s), PRN, Inhaled, q6hr aspirin 81 mg oral enteric coated tablet??81 mg = 1 tab(s), Oral, Daily B-12 1000 mcg oral tablet??1,000 mcg = 1 tab(s), Oral, Daily buPROPion 150 mg/24 hours (XL) oral tablet, extended release??150 mg = 1 tab(s), Oral, BID With Meals cholecalciferol 50 mcg (2000 intl units) oral tablet??50 mcg = 1 tab(s), Oral, Daily Dilaudid 2 mg oral tablet??4 mg = 2 tab(s), PRN, Oral, BID DULoxetine 30 mg oral delayed release capsule??30 mg = 1 cap(s), Oral, Daily Entresto 97 mg-103 mg oral tablet??1 tab(s), Oral, BID estradiol 0.5 mg oral tablet??1 mg = 2 tab(s), Oral, qAM estradiol 0.5 mg oral tablet??1.5 mg = 3 tab(s), Oral, qEvening Farxiga 5 mg oral tablet??5 mg = 1 tab(s), Oral, Daily hydrocortisone topical 2.5% cream??1 joe, Topical, QID icosapent 1 g oral capsule??2 gm = 2 cap(s), Oral, BID KlonoPIN 1 mg oral tablet??1 mg = 1 tab(s), PRN, Oral, BID lamoTRIgine 100 mg oral tablet??150 mg = 1.5 tab(s), Oral, qHS levothyroxine 50 mcg (0.05 [...] oral tablet??500 mg = 1 tab(s), Oral, qHS Vitamin B2??1 tab(s), Oral, BID Condition at Discharge improved Prognosis favorable Physician Discharge Instructions Discharge Patient Diet: ADA Diet Depart Patient Activity Level Restrict: As Tolerated Follow Up Edie Kerr 01/06 @ 1040am (PCP) Discharge Disposition return home with and daughter Hospital Course according to H&P: Crisis reports??that she was seen in their [facility] office??for symptoms of depression??suicidal thinking with plan and intent.?? She reported symptoms of feeling worthless, hopeless,??hypersomnia, fatigue, and with low motivation.?? Client reported lingering suicidal thoughts with plan and intent for the past 2 days.?? Client reported struggling with interpersonal and familial??relationships that are highly contributing to distress.?? The client indicated lack of social support. Crisis reports that??the patient was not complying with??self-care??including showering, disrupted eating, periods of no appetite and periods of binge eating.?? They reported that she canceled her last appointment with hand scudder??reported??my heart is working only 50%??and I have a pacemaker.?? She reported ongoing pain in her body neuropathy in her legs??and is struggling with parental responsibilities and??support of her daughter??who struggles with mental illness.?? Crisis reports that she agreed to voluntary placement??and recommended that if the??client??changes her mind??that??an EEG should be strongly considered.?? Client scored??23/27??on the PHQ???9??and??6/6??on the CSSR Patient denied having any suicidal ideation since admission to hospital. She discussed concerns about her cardiac status and consult was completed by hand scudder. EKG was completed and QTc waves were WNL. Since no EKG contraindications were identified she could continue with psychotropic medications. Lamictal was increased to 150mg daily and Wellbutrin was changed to XL. She tolerated these medication changes well. She reported having a lot of stress at home including special needs child with severe mental health illness and ex- having TBI and medical problems. She stated she would not kill herself because it would be detrimental to her 13yo daughter. She verbalized desire to go to step down placement where she has been in the past and??found beneficial. On day of discharge, she requested to be released from hospital because she was missing her daughter and felt her daughter would benefit from her being home. She stated she would still like to explore step down placement as this is closer to her home. She stated she is aware on how to access this placement as she has done this in the past. She adamantly denied having any suicidal ideation. Discussed cardiac concerns and importance of her attending outpatient appointments. She agreed with this. She was informed that she will need to have EKG completed in near future. She has appt with PCP tomorrow and will discuss this further. She reports positive response from medication changes. Her thoughts are clear, organized, and future oriented. No evidence of psychosis or paranoia noted. mood good affect full range. judgement improved, insight and impulse control good. She has full decision making capability and does not meet criteria for involuntary hospitalization. She will return home with her ex- whom she states is supportive. She participated in completion of safety/crisis plan ?? Electronically Signed By: Jammie Kumari APRN Date and Time Signed: 01/05/24 11:43 EST Patient Care team information Care Team Personnel Name: EDIE KERR, Member Role: Primary Care Physician Address: Address: [facility] [address] [place] [address]- Care Team Related Persons Name: RU BYRD Address: Home [address] [place] [id number]
--- OUTSIDE RECORDS SUMMARY | 2024-08-15 16:58 | XMS_ITS | Encounter Summary ---
[place] [address] Care Team Providers Care Transformation Architect Name Role Phone Edie Ellis MD Primary Care Provider [phone] Encounter Details Date Type Department Care Team (Latest Contact Info) Description 01/11/2024 10:00 AM EST - 01/11/2024 11:59 PM EST Hospital Encounter Non-[place] [address] Discharge Disposition: Home Social History Tobacco Use [...] a day 03/12/2015 naloxone (Narcan) 4 mg/actuation [place], Non-Aerosol Once 03/10/2019 magnesium oxide (MAG-OX) 400 [...] Care Team (Late st Contact Info) Description 10/05/2024 11:00 AM EST Appointment XRay at [address] [place] [address] 10/05/2024 1:10 PM EST Appointment MRI at [place] [phone] Pricilla Finney MD [facility] [place] [address] 10/05/2024 1:10 PM EST Appointment MRI at [place] [phone] Pricilla Finney MD [facility] [place] [address] 10/07/2024 10:00 AM EST Hospital Encounter Non-Invasive Cardiology Lab [place] [phone] Arrived documented as of this encounter Procedures [...] on filedocumented in this encounter Care Teams Transformation Architect Relationship Specialty Start Date End Date Edie Ellis MD [address] [place] [address] PCP - General 10/15/10 documented as of this encounter
--- OUTSIDE RECORDS SUMMARY | 2024-08-15 16:58 | XMS_ITS | Encounter Summary ---
Author Organization [facility] Address [facility] [place] [address] Care Team Providers Care Airfield Defence Guard Name Role Phone Edie Ellis MD Primary Care Provider [phone] Encounter Details Date Type Department Care Team [...] 10/05/2024 11:00 AM EST Appointment XRay at [address] [place] [address] 10/05/2024 1:10 PM EST Appointment MRI at [facility] [place] [phone] Pricilla Finney MD [facility] [address] 10/05/2024 1:10 PM EST [place] [address] Pricilla Finney MD [facility] [place] [address] 10/07/2024 10:00 AM EST Hospital Encounter Non-[place] [address] Arrived documented as of this encounter Visit Diagnoses Not on filedocumented in this encounter Care Teams Airfield Defence Guard Relationship Specialty Start Date End Date Edie Ellis MD [facility] [address] [place] [address] PCP - General 10/15/10 documented as of this encounter
--- OUTSIDE RECORDS SUMMARY | 2024-08-15 16:58 | XMS_ITS | Encounter Summary ---
Author Organization [facility] Address [facility] [place] [address] Care Team Providers Care Coach Wirer Name Role Phone Edie Ellis MD Primary Care Provider [phone] Encounter Details Date Type Department Care Team (Late st Contact Info) Description 07/31/2024 Telephone MRI at [facility] [place] [address] Linda Cardenas Social History Tobacco Use Types Packs/Day Years [...] 10/05/2024 11:00 AM EST Appointment XRay at [address] [place] [address] 10/05/2024 1:10 PM EST Appointment MRI at [place] [phone] Pricilla Finney MD [facility] [place] [address] 10/05/2024 1:10 PM [place] [address] Pricilla Finney MD [facility] [place] [address] 10/07/2024 10:00 AM EST Hospital Encounter Non-[place] [phone] Arrived documented as of this encounter Visit Diagnoses Not on filedocumented in this encounter Care Teams Coach Wirer Relationship Specialty Start Date End Date Edie Ellis MD [address] [place] [address] PCP - General 10/15/10 documented as of this encounter
--- OUTSIDE RECORDS SUMMARY | 2024-08-15 16:58 | XMS_ITS | Encounter Summary ---
[place] [address] Care Team Providers Care Maintenance And Engineering Manager Name Role Phone Edie Ellis MD Primary Care Provider [phone] Reason for Referral * Diagnostic Test (Routine) - Authorized Specialty Diagnoses / Procedures Referred By Geraldine olmedo Referred To Contact Radiology Diagnoses Seizure Procedures MRI Brain wwo Contrast (Generic) Pricilla Finney MD [facility] [place] [address] [place] [address] Referral ID Status Reason Start Date Expiration Date Visits Requested Visits Authorized [id number] Authorized Specialty Service Requested 07/19/2024 01/19/2026 1 1 Encounter Details Date Type Department Care Team (Late st Contact Info) Description 07/19/2024 [place] [address] Pricilla Finney MD [facility] [place] [place] [address] Social History Tobacco Use Types Packs/Day Years [...] encounter Miscellaneous Notes * Telephone Encounter - Pricilla Finney MD - 07/19/2024 9:15 PM EDT July 19, 2024 Neurology Attending [facility] Neurology Transfer Center Call Documentation Caller: Hospital: [facility] Reason for call: patient seemed to have seizure with urinary incontinence. CT neg Narrative: Transfer Decision Made: No transfer Discussion and disposition: Will set up in epilepsy clinic. ED provider will start Keppra. This is not a consultation and we have not established a patient relationship with this patient. The patient was not examined or evaluated at [facility]. The advice provided represents how neurologic patients are generally approached based on the information is provided. Pricilla Finney MD Professor of Neurology [facility] documented in this encounter Plan of Treatment Upcoming Encounters Date Type Department Care Team (Late st Contact Info) Description 10/05/2024 11:00 AM EST Appointment XRay at [address] [place] [address] 10/05/2024 1:10 PM EST Appointment MRI at [facility] [place] [address] Pricilla Finney MD [facility] NEUROLOGY [place] [address] 10/05/2024 1:10 PM [place] [address] Pricilla Finney MD [facility] [place] [address] 10/07/2024 10:00 AM EST Hospital Encounter Non-[place] [phone] Arrived Scheduled Orders Name Type Priority Associated Diagnoses Orde r Schedule MRI Brain wwo Contrast (Generic) Imaging Routine Seizure Expected: 07/20/2024, Expires: 01/19/2025 EEG Neurology Routine Seizure Expected: 07/20/2024, Expires: 01/19/2025 documented as of this encounter Visit Diagnoses Diagnosis Seizure Other convulsions documented in this encounter Care Teams Maintenance And Engineering Manager Relationship Specialty Start Date End Date Edie Ellis MD [address] [place], [place] [address] [address] [place] [address] PCP - General 10/15/10 documented as of this encounter
--- OUTSIDE RECORDS SUMMARY | 2024-08-15 16:58 | XMS_ITS | Encounter Summary ---
[place] [address] Care Team Providers Care Agent Name Role Phone Edie Ellis MD Primary Care Provider [phone] Reason for Referral * Consultation (Routine) - Authorized Specialty Diagnoses / Procedures Referred By Geraldine t Referred To Contact Neurology Diagnoses Seizures Edie Ellis MD [address] [place] [address] [facility] Neurology [address] [place] [phone] Referral ID Status Reason Start Date Expiration Date Visits Requested Visits Authorized [id number] Authorized Consult, Test & Treat 08/10/2024 08/10/2025 1 1 Encounter Details Date Type Department Care Team (Late st Contact Info) Description 08/10/2024 Transcribe Orders eDH Incoming Referrals [phone] Edie Ellis MD [address] [place] [address] Seizures Social History Tobacco Use Types Packs/Day Years [...] 11:00 AM EST Appointment XRay at [address] [place] [address] 10/05/2024 1:10 PM EST Appointment MRI at [place] [phone] Pricilla Finney MD [facility] [place] [address] 10/05/2024 1:10 PM [place] [phone] Pricilla Finney MD [facility] [place] [address] 10/07/2024 10:00 AM EST Hospital Encounter Non-[place]vasive [place] [phone] Arrived Scheduled Referrals Name Type Priority Associated Diagnoses Orde r Schedule Referral to Neurology Outpatient Referral Routine Seizures Ordered: 08/10/2024 documented as of this encounter Visit Diagnoses Diagnosis Seizures Other convulsions documented in this encounter Care Teams Agent Relationship Specialty Start Date End Date Edie Ellis MD [facility] MORALES [address] [place] [address] PCP - General 10/15/10 documented as of this encounter
--- OUTSIDE RECORDS SUMMARY | 2024-08-15 16:58 | XMS_ITS | Encounter Summary ---
Author Organization [facility] Address [facility] [place] [address] Care Team Providers Care Cvor Nurse Name Role Phone Edie Ellis MD Primary Care Provider [phone] Encounter Details Date Type Department Care Team (Late st Contact Info) Description 08/04/2024 Orders [place] [address] Kieran Lucero MD [facility] [place] [address] Atrial fibrillation, unspecified type Social History Tobacco Use Types Packs/Day Years Used Date Smoking Tobacco: Former Cigarettes 1 - 08/2022 Smokeless Tobacco: Never Comments:no more than 5 a da y - 01/02/2022 Alcohol Use Standard Drinks/Week Comments Yes 0 (1 standard drink = 0.6 oz pur e alcohol) rarely [facility] Inpatient Questions Answer Date Recorded Does [...] 10/05/2024 11:00 AM EST Appointment XRay at [address] [place] [address] 10/05/2024 1:10 PM EST Appointment MRI at [place] [phone] Pricilla Finney MD [facility] [place] [address] 10/05/2024 1:10 PM EST Appointment MRI at [place] [phone] Pricilla Finney MD [facility] [place] [address] 10/07/2024 10:00 AM EST Hospital Encounter Non-Invasive Cardiology Lab [place] [phone] Arrived Scheduled Orders Name Type Priority Associated Diagnoses Orde r Schedule XR Chest PA & Lateral (Generic) Imaging Routine Atrial fibrillation, unspecified type Expected: 08/05/2024 (Approximate), Expires: 02/04/2025 documented as of this encounter Visit Diagnoses Diagnosis Atrial fibrillation, unspecified type documented in this encounter Care Teams Cvor Nurse Relationship Specialty Start Date End Date Edie Ellis MD [address] [place] [address] PCP - General 10/15/10 documented as of this encounter
--- OUTSIDE RECORDS SUMMARY | 2024-08-15 16:58 | XMS_ITS | Encounter Summary ---
[place] [address] Care Team Providers Care Jira Administrator Name Role Phone Edie Ellis MD Primary Care Provider [phone] Encounter Details Date Type Department Care Team (Latest Contact Info) Description 10/13/2023 10:00 AM EST - 10/13/2023 11:59 PM EST Hospital Encounter Non-[place] [address] Discharge Disposition: Home Social History Tobacco Use [...] a day 03/12/2015 naloxone (Narcan) 4 mg/actuation [place], Non-Aerosol Once 03/10/2019 magnesium oxide (MAG-OX) 400 [...] 10/05/2024 11:00 AM EST Appointment XRay at [address] [place] [address] 10/05/2024 1:10 PM EST Appointment MRI at [place] [phone] Pricilla Finney MD [facility] [place] [address] 10/05/2024 1:10 PM EST Appointment MRI at [place] [phone] Pricilla Finney MD [facility] [place] [address] 10/07/2024 10:00 AM EST Hospital Encounter Non-Invasive Cardiology Lab [place] [phone] Arrived documented as of this encounter Procedures [...] on filedocumented in this encounter Care Teams Jira Administrator Relationship Specialty Start Date End Date Edie Ellis MD [address] [place] [address] PCP - General 10/15/10 documented as of this encounter
--- OUTSIDE RECORDS SUMMARY | 2024-08-15 16:58 | XMS_ITS | Encounter Summary ---
Author Organization [facility] Address [facility] [place] [address] Care Team Providers Care Machine Deicer Element Winder Name Role Phone Edie Ellis MD Primary Care Provider [phone] Encounter Details Date Type Department Care Team (Late st Contact Info) Description 07/19/2024 Notes Only [place] [address] Pricilla Finney MD [facility] [place] [address] Social History Tobacco Use Types Packs/Day Years Used Date Smoking Tobacco: Former Cigarettes 1 - 08/2022 Smokeless Tobacco: Never Comments:no more than 5 a da y - 01/02/2022 Alcohol Use Standard Drinks/Week Comments Yes 0 (1 standard drink = 0.6 oz pur e alcohol) rarely [facility] Inpatient Questions Answer Date Recorded Does Anyone [...] 10/05/2024 11:00 AM EST Appointment XRay at [address] [place] [address] 10/05/2024 1:10 PM EST Appointment MRI at [place] [phone] Pricilla Finney MD [facility] [place] [address] 10/05/2024 1:10 PM EST Appointment MRI at [place] [phone] Pricilla Finney MD [facility] [place] [address] 10/07/2024 10:00 AM EST Hospital Encounter Non-Invasive Cardiology Lab [place] [phone] Arrived documented as of this encounter Visit Diagnoses Not on filedocumented in this encounter Care Teams Machine Deicer Element Winder Relationship Specialty Start Date End Date Edie Ellis MD [facility] MORALES SCHULTZ [address] [place] [address] PCP - General 10/15/10 documented as of this encounter
--- OUTSIDE RECORDS SUMMARY | 2024-08-15 16:58 | XMS_ITS | Clinical Summary ---
Author Organization [facility] Address [facility] [place] [address] Care Team Providers Care Preschool Teacher Name Role Phone Edie Ellis MD Primary Care Provider [phone] Allergies Active Allergy Reactions Criticality Noted Date [...] day 03/12/2015 Active naloxone (Narcan) 4 mg/actuation [place], Non-Aerosol Once 03/10/2019 Active cholecalciferol, Vitamin D3, [...] Problem Noted Date Diagnosed Date SQ ICD, [employer], single lead 3 Overview (07/15/2023): Focused Factory Manager Model # Serial # Generator [email or web address] A219 [id number] Ventricular Lead [email or web address] 3501 [id number] HFrEF (heart failure with reduced ejection fract ion) 07/14/2023 Chronic pain in right shoulder 07/03/2023 T2DM 06/09/2021 Essential hypertension 06/09/2021 Syncope 06/09/2021 Post laminectomy syndrome 03/20/2015 Cardiomyopathy 03/30/2014 Atrial fibrillation 03/30/2014 Lumbar radiculopathy 12/08/2011 Encounters Date Type Department Care Team Description 08/15/2024 4:10 PM EDT Telehealth [place] [address] Telehealth, Neurology Arrived 08/10/2024 Transcribe Orders eDH Incoming Referrals [phone] Edie Ellis MD Seizures 08/04/2024 [place] [address] Kieran Lucero MD Atrial fibrillation, unspecified type 07/31/2024 [place] [address] Linda Cardenas 07/19/2024 Interpretation Only [address] [phone] Shola Song MD 07/19/2024 [place] [address] Pricilla Finney MD 07/19/2024 [place] [address] Pricilla Finney MD 07/09/2024 10:00 AM EDT - 07/09/2024 11:59 PM EDT Hospital Encounter Non-Invasive [place] [address] Discharge Disposition: Home from Last 3 Months [...] = 0.6 oz pur e alcohol) rarely [facility] Inpatient Questions Answer Date Recorded [...] 11:00 AM EST Appointment XRay at [address] [place] [address] 10/05/2024 1:10 PM [place] [phone] Pricilla Finney MD [facility] [place] [address] 10/05/2024 1:10 PM [place] [address] Pricilla Finney MD [facility] [place] [address] 10/07/2024 10:00 AM EST Hospital Encounter Non-Invasive [place] [address] Arrived Health Maintenance Due Date Last Done [...] Hepatitis B vaccine (0-59 yrs) (1) 1994 Tetanus/Diphtheria/Pertussis Vaccines (1 - Tdap) 1994 HPV test 2005 PAP Smear 2005 Breast Cancer Share Decision Needed 2015 Breast Cancer screening 2015 Covid-19 Vaccine (1 - 2022-2 4 season) 2024 Influenza (Flu) vaccine (1 o f 1 - Influenza standard series) 07/24/2024 09/06/2021, 08/28/2009, 10/28/2008 DM Creatinine yearly 08/07/2024 08/07/2023, 07/14/2023, 05/04/2023, Additional history exists Medical Devices Implanted Type Area Focused Factory Manager Device Identifier Shelf Expiration Date Model / Serial / Lot Bsx [place] A219-07/14/2023 Implanted:Qty: 1 on 07/14/2023 by Jonathan Willson MD Defibrillator Chest Wall [employer] A219 / [id number] / Description:When scanned at [facility] the above implant (A219, 350) is MR Conditional up to 3T. The following parameters must be followed when scanning: MRI magnet strength 1.5 T only. RF field Approximately 64 MHz. Maximum spatial gradient 30 T/m (3,000 G/cm). MRI equipment specification Horizontal, 1H proton, closed bore scanners only. Specific Absorption Rate (NESTOR) limits for the entire active scan. Normal Operating Modea: Whole body averaged, less than or equal to 2.0 kirk/kilogram (W/kg), Head, less than or equal to 3.2 W/kg. Maximum specified gradient slew rate less than or equal to 200 T/m/s per axis. The use of local receive-only coils is not restricted. Local transmit-only coils or local transmit/receive coils may be used, but should not be placed directly over the ImageReady S-ICD System. Patient in supine or prone position only. Patient must be continuously monitored by pulse oximetry and electrocardiography (ECG) for the entire duration in which the pulse generator is in MRI Protection Mode by an ACLS Certified Nurse. Ensure backup therapy is available (external rescue). Patient will need to have the device placed into MRI Protection Mode by EP lainey to the beginning of the scan and taken out of at the conclusion. Patient will need a two view chest x-ray within one year of the MRI Exam. Francis Garcia RT(R)(CT)(MR)(ARRT) [facility] MRI Safety Technologist, 08/04/2024 Bsx S-Icd 3501 Lead-07/14/2023 Implanted:Qty: 1 on 07/14/2023 by Jonathan Willson MD Lead Heart [employer] 3501 / [id number] / Description:See S-ICD for MR I Conditions: Francis DEE(R)(CT)(MR)(ARRT), MRI Safety Technologist, 08/04/2024 Explanted Type Area Focused Factory Manager Device Identifier Shelf Expiration Date Model / Serial / Lot Lead,Trial,St,. 0014,Stylt,50cm ([id number]) - [id number] Implanted:Qty: 1 on 06/03/2012 at [facility] Explanted:Qty: 1 on 06/03/2012 IMPLANTS Left: Back DO NOT USE [employer] - [id number] 04/03/2014 HI-[id number] 0E / [id number] / Description:Per note in charity t. Lead looks to have been pulled same day. Had radiologist look at CT and confirmed no leads in place. Francis Garcia RT(R)(CT)(MR)(ARRT), MRI Safety Technologist, 04/09/2021 Procedures Procedure Name Priority Date/Time Associated Diagnosis Comments CARDIAC DEVICE CHECK - REMOTE Routine 07/26/2024 7:55 PM EDT ORDS - PROVIDER CARE SCAN 07/26/2024 12:[address] HEAD WO CONTRAST (GENERIC) STAT 07/19/2024 7:38 PM EDT PRO ICD INTERROGATION REMOTE UP TO 90 DAYS Routine 05/17/2024 1:41 PM EDT BMP W/FASTING GLUCOSE STAT 08/07/2023 7:38 AM EDT from Last 3 Months or Most Recently Relevant to Health Maintenance Results * Cardiac Device Check - Remote (07/26/2024 7:55 PM EDT) Only the most recent of2 resultswithin the time period is included. Anatomical Region Laterality Modality Other 07/26/2024 7:55 PM EDT Andreina Schneider APRN IMPLANTABLE CARDIAC DEVICE * Scan Doc: Ords - Provider Care (07/26/2024 12:00 AM EDT) Narrative 07/26/2024 12:00 AM EDT Ordered by an unspecified provider. Scanning Provider MEDIA MGR SCAN EXT O RDR/RSLT * CT Head wo Contrast (Generic) (07/19/2024 7:38 PM EDT) PT CLASS E RAD ADMITDTTM [id number] RAD PT [facility] INFO [id number]^Haniss ketan^Shola RAD EXAM DESC CTHEAD^CT Head w/o Contrast^RIS [facility] WORKSTATION ID [id number] RAD Anatomical Region Laterality Modality Head Computed Tomogra phy 07/19/2024 7:38 PM EDT Impressions 07/19/2024 7:42 PM EDT No acute intracranial processes. Thank you for letting us participate in the care of this patient. ??If you are a health care provider and have any questions regarding this report, please contact the number below. ??For patients who have questions please contact the health workforce investment act career manager that requested your imaging first. ? Narrative 07/19/2024 7:42 PM EDT EXAMINATION: CT Head w/o Contrast CLINICAL HISTORY: concussion w neg head ct s/p trauma 2 wks ago, vomiting, 4rth lifetime siezure today TECHNIQUE: CT head performed without intravenous contrast administration. COMPARISON: None FINDINGS: Normal ventricles and sulci. No masses, mass effect or extra-axial collections. No acute hemorrhages. Intact quinonez-white differentiation. The visualized paranasal sinuses are clear. Clear otomastoid spaces. No aggressive osseous lesions. Procedure Note Nikhil Borja MD - 07/19/2024 EXAMINATION: CT Head w/o Contrast CLINICAL HISTORY: concussion w neg head ct s/p trauma 2 wks ago, vomiting,4rth lifetime siezure today TECHNIQUE: CT head performed without intravenous contrast administration. COMPARISON: None FINDINGS: Normal ventricles and sulci. No masses, mass effect or extra-axialcollections. No acute hemorrhages. Intact quinonez-white differentiation. The visualized paranasal sinuses are clear. Clear otomastoid spaces. No aggressiveosseous lesions. IMPRESSION No acute intracranial processes. Thank you for letting us participate in the care of this patient. If youare a health care provider and have any questions regarding this report,please contact the number below. For patients who have questions please contactthe health workforce investment act career manager that requested your imaging first. Shola Song MD IMG CT ORDERABLES * (ABNORMAL) BMP w/fasting Glucose (08/07/2023 7:38 AM EDT) Glucose Fasting 165(H) 65 - 99 mg/dL [facility] Comment: ?Fasting* Glucose Interpretive Criteria [...] of Diabetes Mellitus, Position Statement from the [place] [employer]. ??Diabetes Care, Volume 33, Supplement 1, Nov 2009 Blood Urea Nitrogen 17 8 - 18 mg/dL [facility] Creatinine 0.52(L) 0.70 - 1.20 mg/dL [facility] Sodium 137 135 - 145 mmol/L [facility] Potassium 4.7 3.5 - 5.0 mmol/L [facility] Comment: Please note: ??Patients with WBC >100,000 may have falsely elevated Potassium levels. ??For accurate Potassium quantification in these patients send serum separator tube (gold top) for subsequent determinations. ??Contact the Clinical Chemistry Laboratory if there are any questions. Chloride 102 98 - 107 mmol/L [facility] Carbon Dioxide 26 22 - 31 mmol/L [facility] Anion Gap 9 5 - 15 mmol/L [facility] Calcium 9.1 8.5 - 10.5 mg/dL [facility] Est Glomerular Filtration Rate 115 >=60 mL/min/1. 73 m?? [facility] Comment: This patient's estimated GFR [...] In Lab Hero Taylor MD CHEMISTRY ORDERABLES [facility] [place] [address] from Last 3 Months or Most Recently Relevant to Health Maintenance Advance Directives Documents on File Type Date Recorded Patient Supervisor Concrete Pipe Plant Expl anation Personal Supervisor Concrete Pipe Plant 07/03/2023 3:24 PM YONI BYRD/SPOUSE * Attempt Cardiopulmonary Resuscitation - Inpatient (Latest [...] is based on Patients wishes. Care Teams Preschool Teacher Relationship Specialty Start Date End Date Edie Ellis MD [address] [facility] [address] [place] [address] PCP - General 10/15/10
--- OUTSIDE RECORDS SUMMARY | 2024-08-15 16:58 | XMS_ITS | Encounter Summary ---
Author Organization [facility] Address [facility] [place] [address] Care Team Providers Care Construction Area Manager Name Role Phone Edie Ellis MD Primary Care Provider [phone] Encounter Details Date Type Department Care Team (Late st Contact Info) Description 03/09/2024 10:00 AM EDT Office Visit Cardiology at [address] [address] Jonathan Willson MD [facility] [place] [address] ICD (implantable cardioverter-defibril lator) in place Social [...] Follow Up Patient ID Jammie Gottlieb [id number] Jammie Gottlieb is following up in EP [...] Patient Active Problem List Diagnosis SQ ICD, [employer], single lead Medical Records Receptionist Model # Serial # Generator [employer] [id number] Ventricular Lead [employer] 3501 [id number] HFrEF (heart failure with reduced ejection fraction) [...] Twice a day naloxone (Narcan) 4 mg/actuation [place], Non-Aerosol Once magnesium oxide (MAG-OX) 400 mg [...] device clinic JONATHAN WILLSON MD Cardiac Electrophysiology [facility] T: [phone] F: [phone] 20 minutes were spent preparing to see [...] 10/05/2024 11:00 AM EST Appointment XRay at [address] [place] [address] 10/05/2024 1:10 PM EST App[place]ment [place] [address] Pricilla Finney MD [facility] [place] [address] 10/05/2024 1:10 PM EST Appointment [place] [address] Pricilla Finney MD [facility] [place] [address] 10/07/2024 10:00 AM EST Hospital Encounter Non-Invasive [place] [address] Arrived documented as of this encounter Visit Diagnoses Diagnosis ICD (implantable cardioverter-defibrillator) in place documented in this encounter Care Teams Construction Area Manager Relationship Specialty Start Date End Date Edie Ellis MD [facility] [address] [place] [address] PCP - General 10/15/10 documented as of this encounter
--- OUTSIDE RECORDS SUMMARY | 2024-08-15 16:58 | XMS_ITS | Encounter Summary ---
Author Organization [facility] Address [facility] [place] [address] Care Team Providers Care Senior Data Warehouse Architect Name Role Phone Edie Ellis MD Primary Care Provider [phone] Encounter Details Date Type Department Care Team (Late st Contact Info) Description 08/15/2024 4:10 PM EDT Telehealth notes only TeleHealth [facility] [place] [address] Telehealth, Neurology None Arrived Social History Tobacco Use Types Packs/Day Years [...] 10/05/2024 11:00 AM EST Appointment XRay at [address] [place] [address] 10/05/2024 1:10 PM EST Appointment MRI at [place] [phone] Pricilla Finney MD [facility] [place] [address] 10/05/2024 1:10 PM EST Appointment MRI at [place] [phone] Pricilla Finney MD [facility] [place] [address] 10/07/2024 10:00 AM EST Hospital Encounter Non-Invasive Cardiology Lab [place] [phone] Arrived documented as of this encounter Visit Diagnoses Not on filedocumented in this encounter Care Teams Senior Data Warehouse Architect Relationship Specialty Start Date End Date Edie Ellis MD [address] [place] [address] PCP - General 10/15/10 documented as of this encounter
--- OUTSIDE RECORDS SUMMARY | 2024-08-15 16:58 | XMS_ITS | Encounter Summary ---
Author Organization [facility] Address [facility] [place] [address] Care Team Providers Care Cutter Operator Asbestos Shingle Name Role Phone Edie Ellis MD Primary Care Provider [phone] Encounter Details Date Type Department Care Team [...] 10/05/2024 11:00 AM EST Appointment XRay at [address] [place] [address] 10/05/2024 1:10 PM EST Appointment MRI at [facility] [place] [phone] Pricilla Finney MD [facility] [place] [address] 10/05/2024 1:10 PM [place] [address] Pricilla Finney MD [facility] [place] [address] 10/07/2024 10:00 AM EST Hospital Encounter Non-[place] [address] Arrived documented as of this encounter Visit Diagnoses Not on filedocumented in this encounter Care Teams Cutter Operator Asbestos Shingle Relationship Specialty Start Date End Date Edie Ellis MD [facility] [address] [place] [address] PCP - General 10/15/10 documented as of this encounter
--- OUTSIDE RECORDS SUMMARY | 2024-08-15 16:58 | XMS_ITS | Encounter Summary ---
Author Organization [facility] Address [facility] [place] [address] Care Team Providers Care Mine Safety Manager Name Role Phone Edie Ellis MD Primary Care Provider [phone] Reason for Visit * Reason Onset Date Comments Pre Procedure Call 09/08/2023 Encounter Details Date Type Department Care Team (Late st Contact Info) Description 09/08/2023 Tele[place] [phone] Shabbir Kaminski MD [facility] [place] [address] Pre Procedure Call Social History Tobacco Use [...] encounter Miscellaneous Notes * Telephone Encounter - [place], Annette Suarez - 09/08/2023 10:15 AM EDT I called and left a message for patient to call [phone] directly and schedule surgery with Dr. KAMINSKI. documented in this encounter Plan of Treatment Upcoming Encounters Date Type Department Care Team (Late st Contact Info) Description 10/05/2024 11:00 AM EST Appointment XRay at [address] [place] [address] 10/05/2024 1:10 PM EST Appointment MRI at [place] [phone] Pricilla Finney MD [facility] [place] [address] 10/05/2024 1:10 PM [place] [address] Pricilla Finney MD [facility] [place] [address] 10/07/2024 10:00 AM EST Hospital Encounter Non-Invasive Cardiology Lab [place] [phone] Arrived documented as of this encounter Visit Diagnoses Not on filedocumented in this encounter Care Teams Mine Safety Manager Relationship Specialty Start Date End Date Edie Ellis MD [facility] [address] [place] [address] PCP - General 10/15/10 documented as of this encounter
--- OUTSIDE RECORDS SUMMARY | 2024-08-15 16:58 | XMS_ITS | Encounter Summary ---
Author Organization [facility] [place] [address] Care Team Providers Care Liner Installer Name Role Phone Edie Ellis MD Primary Care Provider Encounter Details Date Type Department Care Team (Late st Contact Info) Description 01/28/2024 Telephone Cardiology at [address] [phone] Libertad Krishnan Social History Tobacco Use Types Packs/Day Years Used Date Smoking Tobacco: Former Cigarettes 1 - 08/2022 Smokeless Tobacco: Never Comments:no more than 5 a da y - 01/02/2022 Alcohol Use Standard Drinks/Week Comments Yes 0 (1 standard drink = 0.6 oz pur e alcohol) rarely [facility] Inpatient Questions Answer Date Recorded Does [...] 01/28/2024 12:04 PM EST Request sent to [facility] for EKG strips and Cardiology consult notes [...] 10/05/2024 11:00 AM EST Appointment XRay at [address] [place] [address] 10/05/2024 1:10 PM EST Appointment MRI at [place] [phone] Pricilla Finney MD [facility] [place] [address] 10/05/2024 1:10 PM [place] [address] Pricilla Finney MD [facility] [place] [address] 10/07/2024 10:00 AM EST Hospital Encounter Non-[place] [address] Arrived documented as of this encounter Visit Diagnoses Not on filedocumented in this encounter Care Teams Liner Installer Relationship Specialty Start Date End Date Edie Ellis MD [address] [place] [address] PCP - General 10/15/10 documented as of this encounter
--- OUTSIDE RECORDS SUMMARY | 2024-08-15 16:58 | XMS_ITS | Encounter Summary ---
Author Organization [facility] [place] [address] Care Team Providers Care Forgesmith Name Role Phone Edie Ellis MD Primary Care Provider [phone] Encounter Details Date Type Department Care Team (Latest Contact Info) Description 07/09/2024 10:00 AM EDT - 07/09/2024 11:59 PM EDT Hospital Encounter Non-Invasive [place] [address] Discharge Disposition: Home Social History Tobacco Use [...] a day 03/12/2015 naloxone (Narcan) 4 mg/actuation [place], Non-Aerosol Once 03/10/2019 magnesium oxide (MAG-OX) 400 [...] 10/05/2024 11:00 AM EST Appointment XRay at [address] [place] [address] 10/05/2024 1:10 PM EST Appointment MRI at [place] [phone] Pricilla Finney MD [facility] [place] [address] 10/05/2024 1:10 PM EST Appointment MRI at [place] [phone] Pricilla Finney MD [facility] [place] [address] 10/07/2024 10:00 AM EST Hospital Encounter Non-Invasive Cardiology Lab [place] [phone] Arrived documented as of this encounter Procedures Procedure Name Priority Date/Time Associated Diagnosis Comments PRO ICD INTERROGATION REMOTE UP TO 90 DAYS Routine 05/17/2024 1:41 PM EDT documented in this encounter Results * Cardiac Device Check - Remote (05/17/2024 1:41 PM EDT) Anatomical Region Laterality Modality Other 05/17/2024 1:41 PM EDT Hero Taylor MD IMPLANTABLE CARDIAC DEVICE documented in this encounter Visit Diagnoses Not on filedocumented in this encounter Care Teams Forgesmith Relationship Specialty Start Date End Date Edie Ellis MD [address] [place] [address] PCP - General 10/15/10 documented as of this encounter
--- OUTSIDE RECORDS SUMMARY | 2024-08-15 16:58 | XMS_ITS | Encounter Summary ---
Author Organization [facility] Address [facility] [place] [address] Care Team Providers Care Hebrew Cantor Name Role Phone Edie Ellis MD Primary Care Provider [phone] Encounter Details Date Type Department Care Team (Late st Contact Info) Description 07/19/2024 Interpretation Only [facility] [address] [place] [address] Shola Song MD [address] [place] [address] Social History Tobacco Use Types Packs/Day Years Used Date Smoking Tobacco: Never Assessed [facility] Inpatient Questions Answer Date Recorded [...] 10/05/2024 11:00 AM EST Appointment XRay at [address] [place] [address] 10/05/2024 1:10 PM [place] [address] Pricilla Finney MD [facility] [place] [address] 10/05/2024 1:10 PM [place] [address] Pricilla Finney MD [facility] [place] [address] 10/07/2024 10:00 AM EST Hospital Encounter Non-[place] [phone] Arrived documented as of this encounter Procedures Procedure Name Priority Date/Time Associated Diagnosis Comments CT HEAD WO CONTRAST (GENERIC) STAT 07/19/2024 7:38 PM EDT documented in this encounter Results * CT Head wo Contrast (Generic) (07/19/2024 7:38 PM EDT) PT CLASS E RAD ADMITDTTM [id number] [facility] PT [facility] INFO [id number]^Haniss ketan^Shola RAD EXAM DESC CTHEAD^CT Head w/o Contrast^RIS [facility] WORKSTATION ID [id number] [facility] Anatomical Region Laterality Modality Head Computed Tomogra phy 07/19/2024 7:38 PM EDT Impressions 07/19/2024 7:42 PM EDT No acute intracranial processes. Thank you for letting us participate in the care of this patient. ??If you are a health care provider and have any questions regarding this report, please contact the number below. ??For patients who have questions please contact the health elderly caregiver that requested your imaging first. ? [...] patients who have questions please contactthe health elderly caregiver that requested your imaging first. Shola Song MD IMG CT ORDERABLES documented in this encounter Visit Diagnoses Not on filedocumented in this encounter Care Teams Hebrew Cantor Relationship Specialty Start Date End Date Edie Ellis MD [facility] [address] [place] [phone] PCP - General 10/15/10 documented as of this encounter
--- OUTSIDE RECORDS SUMMARY | 2024-08-15 16:58 | XMS_ITS | Encounter Summary ---
[place] [address] Care Team Providers Care Machinist Helper Marine Name Role Phone Edie Ellis MD Primary Care Provider [phone] Encounter Details Date Type Department Care Team (Latest Contact Info) Description 04/10/2024 10:00 AM EDT - 04/10/2024 11:59 PM EDT Hospital Encounter [place] [address] Discharge Disposition: Home Social History Tobacco Use [...] a day 03/12/2015 naloxone (Narcan) 4 mg/actuation [place], Non-Aerosol Once 03/10/2019 magnesium oxide (MAG-OX) 400 [...] 10/05/2024 11:00 AM EST Appointment XRay at [address] [place] [address] 10/05/2024 1:10 PM EST Appointment MRI at [place] [phone] Pricilla Finney MD [facility] [place] [address] 10/05/2024 1:10 PM EST Appointment MRI at [place] [phone] Pricilla Finney MD [facility] [place] [address] 10/07/2024 10:00 AM EST Hospital Encounter Non-Invasive Cardiology Lab [place] [address] Arrived documented as of this encounter Procedures [...] on filedocumented in this encounter Care Teams Machinist Helper Marine Relationship Specialty Start Date End Date Edie Ellis MD [address] [place] [address] PCP - General 10/15/10 documented as of this encounter
--- OUTSIDE RECORDS SUMMARY | 2024-08-15 16:58 | XMS_ITS | Encounter Summary ---
Author Organization [facility] Address [facility] [place] [address] Care Team Providers Care Cotton Tier Name Role Phone Edie Ellis MD Primary Care Provider [phone] Encounter Details Date Type Department Care Team (Late st Contact Info) Description 01/29/2024 4:00 PM EST Office Visit Cardiology at [address] [address] Andreina Schneider, CASING GRADER [facility] [place] [address] ICD, [employer], single lead; HFrEF (heart failure with [...] note were not included. Cardiac Device Interrogation aJmmie Gottlieb [id number] 01/28/2024 History: 48 y.o. female with a [...] Lead and Generator Data: from implant 07/14/23 Weatherization Coordinator Model # Serial # Generator [employer] [id number] Ventricular Lead [employer] [id number] Data: Impedance (ohms) Shock (10J) 87 Programming: [...] 2) She had a recent hospitalization in [place] in December, for depression with some medication [...] ms ECG today shows SR 75 bpm, ND 168 ms, QRS 78 ms, QT 426 [...] antiemetics, antianxiety,. 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 - Follow up: SQ-ICD remote checks as scheduled (weekly), and in clinic yearly. Will forward to Dr. Willson for his review. Andreina Schneider APRN 01/29/24 Pager: [phone] documented in this encounter Plan of Treatment Upcoming Encounters Date Type Department Care Team (Late st Contact Info) Description 10/05/2024 11:00 AM EST Appointment XRay at [address] [place] [address] 10/05/2024 1:10 PM [place] [address] Pricilla Finney MD [facility] [place] [address] 10/05/2024 1:10 PM [place] [address] Pricilla Finney MD [facility] [place] [address] 10/07/2024 10:00 AM EST Hospital Encounter Non-Invasive [place] [address] Arrived documented as of this encounter Procedures Procedure Name Priority Date/Time Associated Diagnosis Comments EKG 12-LEAD Routine 01/29/2024 4:11 PM EST SQ ICD, [employer], single lead HFrEF (heart failure with reduced ejection fraction) documented in this encounter Results * EKG 12 Lead (01/29/2024 4:11 PM EST) Ventricular rate 75 BPM MUSE SYSTEM Atrial Rate 75 BPM MUSE SYSTEM P-R Interval 168 ms MUSE SYSTEM QRS Duration 78 ms MUSE SYSTEM Q-T Interval 426 ms MUSE SYSTEM QTC Calculated (Bezet) 475 ms MUSE SYSTEM Calculated P Starks 34 degrees MUSE SYSTEM Calculated R Starks 23 degrees MUSE SYSTEM Calculated T Starks 48 degrees MUSE SYSTEM INTERPRETATION Normal sinus rhythm Low voltage QRS Cannot rule out Septal infarct , age undetermined Abnormal ECG When compared with ECG of 03-AUG-2023 13:57, Vent. rate has decreased BY ??39 BPM Questionable change in initial forces of Septal leads Confirmed by Rainer Nova MD (49) on 01/30/2024 1:33:36 PM MUSE SYSTEM 01/29/2024 4:11 PM EST 01/30/2024 1:33 PM EST Andreina Schneider CASING GRADER ECG ORDERABLES MUSE SYSTEM documented in this encounter Visit Diagnoses Diagnosis SQ ICD, [employer], single lead HFrEF (heart failure with reduced ejection fraction) documented in this encounter Care Teams Cotton Tier Relationship Specialty Start Date End Date Edie Ellis MD [facility] [address] [place] [address] PCP - General 10/15/10 documented as of this encounter
--- OUTSIDE RECORDS SUMMARY | 2024-08-15 16:58 | XMS_ITS | Encounter Summary ---
Author Organization [facility] [place] [address] Care Team Providers Care Superintendent Logging Name Role Phone Edie Ellis MD Primary Care Provider [phone] Encounter Details Date Type Department Care Team (Late st Contact Info) Description 07/06/2029 11:59 PM EDT Anesthesia [place] [address] Emmanuel Duran MD [facility] DR ANESTHESI[place] [address] Anesthesia Record Procedure Summary Procedure Name Responsible [...] ARTHROSCOPY SHOULDER, SUBACROMIAL DECOMPRESSION (WRVU 3) MODIFIER [facility] Patient Active Problem List Diagnosis Date Noted SQ ICD, [employer], single lead 07/15/2023 HFrEF (heart failure [...] ARRAY, EPIDURAL performed by CARINE CHATTERJEE at [facility] MAIN OR PRO UNLISTED PROCEDURE, MUSCULOSKELETAL [...] EF and syncope (last occurred in October), [employer] ICD placed 07/14/23 for primary prevention: entresto, [...] 11:00 AM EST Appointment XRay at [address] [place] [phone] 10/05/2024 1:10 PM [place] [address] Pricilla Finney MD [facility] [place] [address] 10/05/2024 1:10 PM [place] [address] Pricilla Finney MD [facility] [place] [address] 10/07/2024 10:00 AM EST Hospital Encounter Non-[place] [address] Arrived documented as of this encounter Visit Diagnoses Not on filedocumented in this encounter Care Teams Superintendent Logging Relationship Specialty Start Date End Date Edie Ellis MD [address] [facility] 1 [place] [address] PCP - General 10/15/10 documented as of this encounter
--- OUTSIDE RECORDS SUMMARY | 2024-08-15 16:58 | XMS_ITS | Encounter Summary ---
Author Organization [facility] [place] [address] Care Team Providers Care Reformatory Attendant Name Role Phone Edie Ellis MD Primary Care Provider [phone] Encounter Details Date Type Department Care Team (Late st Contact Info) Description 02/08/2024 Telephone Cardiology at [address] [phone] Andreina Gardner Social History Tobacco Use Types [...] 10/05/2024 11:00 AM EST Appointment XRay at [address] [place] [address] 10/05/2024 1:10 PM [place] [address] Pricilla Finney MD [facility] [place] [address] 10/05/2024 1:10 [place] [address] Pricilla Finney MD [facility] [place] [address] 10/07/2024 10:00 AM EST Hospital Encounter Non-[place] [address] Arrived documented as of this encounter Visit Diagnoses Not on filedocumented in this encounter Care Teams Reformatory Attendant Relationship Specialty Start Date End Date Edie Ellis MD [facility] [address] [place] [address] PCP - General 10/15/10 documented as of this encounter
--- OUTSIDE RECORDS SUMMARY | 2024-08-15 16:59 | XMS_ITS | Encounter Summary ---
Author Organization [facility] [place] [address] Care Team Providers Care Epic Ambulatory Analysts Name Role Phone Edie Ellis MD Primary Care Provider [phone] Encounter Details Date Type Department Care Team [...] 10/05/2024 11:00 AM EST Appointment XRay at [address] [place] [address] 10/05/2024 1:10 PM [place] [address] Pricilla Finney MD [facility] [place] [address] 10/05/2024 1:10 PM [place] [address] Pricilla Finney MD [facility] [place] [address] 10/07/2024 10:00 AM EST Hospital Encounter Non-Invasive [place] [address] Arrived documented as of this encounter Visit Diagnoses Not on filedocumented in this encounter Care Teams Epic Ambulatory Analysts Relationship Specialty Start Date End Date Edie Ellis MD [facility] [address] [facility] 1 [place] [address] PCP - General 10/15/10 documented as of this encounter
--- OUTSIDE RECORDS SUMMARY | 2024-08-15 16:59 | XMS_ITS | Encounter Summary ---
Author Organization [facility] [place] [address] Care Team Providers Care Supervisor Screen Making Name Role Phone Edie Ellis MD Primary Care Provider [phone] Reason for Visit * Auth/Cert (Routine) Specialty Diagnoses / Procedures Referred By Geraldine t Referred To Contact Diagnoses Cardiomyopathy, unspecified type [I42.9]Syncope, unspecified syncope type [R55]Family history of sudden cardiac [Z82.41] Procedures ELECTROPHYSIOLOGY PROCEDURE Jonathan Willson MD [facility] [place] [address] [facility] Referral ID Status Reason Start Date Expiration Date Visits Re quested Visits Authorized [id number] 1 1 Encounter Details Date Type Department Care Team (Late st Contact Info) Description 07/14/2023 7:43 AM EDT Anesthesia Event [place] [address] Sae Morel MD [facility] [place] [address] Anesthesia Record Procedure Summary Procedure Name Responsible [...] questions and acknowledgement of understanding Yessi Gautam, RECORDS CLERK 0919 Break/Relief Out 0949 AN Defib 10 [...] Nesha Vargas RN 07/15/23 1059 by Donna Miguel RN ETT Mask Ventilation: Ea sy (1); [...] dorsal arch vein (top of hand), right; [id number] catheter system; 18 gauge; MD Jack; removed per physician, removed per policy/procedure, catheter/device intact; 07/15/23; 10507/14/23 08 by Michelle Pittman CRNA 07/15/23 105 by Donna Miguel, CHARLY documented in this encounter Social History [...] Procedure Summary Date: 07/14/23 Room / Location: [facility] A-LAB ROOM 3 / [facility] EP LABS Anesthesia Start: 742 Anesthesia Stop: 1054 Procedure: ELECTROPHYSIOLOGY PROCEDURE Diagnosis: Cardiomyopathy, unspecified type Syncope, unspecified syncope type Family history of sudden cardiac (Cardiomyopathy, unspecified type [I42.9]Syncope, unspecified syncope type [R55]Family history of sudden cardiac [Z82.41]) Providers: Jonathan Willson MD Responsible Provider: Sae Morel MD Anesthesia Type: general ASA Status: 3 All Anesthesia Providers: Anesthesiologist: Sae Morel MD RECORDS CLERK: Michelle Pittman CRNA Vitals Value Taken Time BP 110/74 07/14/23 1200 Temp 36.3 ??C (97.3 ??F) 07/14/23 1051 Pulse 84 07/14/23 1224 Resp 24 07/14/23 1224 SpO2 93 % 07/14/23 1224 Pain Level 6 07/14/23 1214 Vitals shown include unvalidated device data. Patient Location: PACU/[facility] Level of Consciousness: Conscious but Sleepy [...] ARRAY, EPIDURAL performed by CARINE CHATTERJEE at [facility] MAIN OR PRO UNLISTED PROCEDURE, MUSCULOSKELETAL SYSTEM, [...] consented to blood products. Plan discussed with RECORDS CLERK. Attending Note: Jammie Gottlieb is a 48 [...] 10/05/2024 11:00 AM EST Appointment XRay at [address] [place] [address] 10/05/2024 1:10 PM [place] [address] Pricilla Finney MD [facility] [address] 10/05/2024 1:10 PM [place] [address]-1000 Pricilla Finney MD [facility] [place] [address] 10/07/2024 10:00 AM EST Hospital Encounter Non-[place] [address] Arrived documented as of this encounter Visit [...] mg documented in this encounter Care Teams Supervisor Screen Making Relationship Specialty Start Date End Date Edie Ellis MD [address] [facility] 1 [place] [address] PCP - General 10/15/10 documented as of this encounter
--- OUTSIDE RECORDS SUMMARY | 2024-08-15 16:59 | XMS_ITS | Encounter Summary ---
Author Organization [facility] Address [facility] [place] [address] Care Team Providers Care Wearing Apparel Presser Name Role Phone Edie Ellis MD Primary Care Provider [phone] Encounter Details Date Type Department Care Team (Late st Contact Info) Description 08/07/2023 8:30 AM EDT - 08/07/2023 10:00 AM EDT Surgery [place] [address] Jonathan Willson MD [facility] [place] [address] ELECTROPHYSIOLOGY PROCEDURE Social History Tobacco Use Types [...] F. The office scheduling phone number is [phone]. documented in this encounter Medications at Time [...] a day 03/12/2015 naloxone (Narcan) 4 mg/actuation [place], Non-Aerosol Once 03/10/2019 magnesium oxide (MAG-OX) 400 [...] note were not included. Jammie Gottlieb 1975 [id number] Primary Care Physician Edie Ellis MD 08/07/23 [...] Patient Active Problem List Diagnosis SQ ICD, [employer], single lead Machine Finisher Model # Serial # Generator [employer] [id number] Ventricular Lead [employer] [id number] HFrEF (heart failure with reduced ejection fraction) [...] Spacer USE DIRECTED naloxone (Narcan) 4 mg/actuation [place], Non-Aerosol Once valACYclovir (VALTREX) 1 g tablet [...] the procedure. Written consent obtained Will change lead her dressings today JONATHAN WILLSON MD 08/07/2023 Pager [phone] Plan 1) Anticipate DFT test 2) Discharge [...] 10/05/2024 11:00 AM EST Appointment XRay at [address] [place] [address] 10/05/2024 1:10 PM [place] [address] Pricilla Finney MD [facility] [place] [address] 10/05/2024 1:10 PM [place] [address]1000 Pricilla Finney MD [facility] [place] [address] 10/07/2024 10:00 AM EST Hospital Encounter Non-Invasive Cardiology Lab [facility] [place] [address] Arrived documented as of this encounter Procedures [...] (at implant and today) I was the reducing system operator, present for the entire procedure and personally edited this note JONATHAN WILLSON MD Narrative 08/07/2023 3:16 PM EDT SQ ICD Surveillance, Monitored Anesthesia Care Indication: Assessment of defibrillation thresholds, unable to induce VF at initial implant Operators: ??Reinaldo Connelly MD; Jonathan DIXON.[facility]. Procedure: The patient was brought to the Electrophysiology Lab in the fasting state and continuous electrocardiographic monitoring was instituted. ICD evaluation and DFT testing was performed under moderate sedation with monitored anesthesia care ICD Evaluation: [employer] Emblem A219 Device Serial Number: [id number] Battery: 100% to LISA A 10 joule [...] - 199 mg/dL [facility] Comment: Supplemental ranges: <140 mg/dL before meals <180 mg/dL all other times of the day Blood 08/07/2023 7:46 AM EDT 08/07/2023 7:46 AM EDT Jonathan Willson MD POINT OF CARE TEST O RDERABLES [facility] [place] [address] * (ABNORMAL) BMP w/fasting Glucose (08/07/2023 7:38 AM EDT) Glucose Fasting 165(H) 65 - 99 mg/dL [facility] Comment: ?Fasting* Glucose Interpretive Criteria Normal [...] of Diabetes Mellitus, Position Statement from the [place] [employer]. ??Diabetes Care, Volume 33, Supplement 1, Nov 2009 Blood Urea Nitrogen 17 8 - 18 mg/dL [facility] Creatinine 0.52(L) 0.70 - 1.20 mg/dL [facility] Sodium 137 135 - 145 mmol/L [facility] Potassium 4.7 3.5 - 5.0 mmol/L [facility] Comment: Please note: ??Patients with WBC >100,000 may have falsely elevated Potassium levels. ??For accurate Potassium quantification in these patients send serum separator tube (gold top) for subsequent determinations. ??Contact the Clinical Chemistry Laboratory if there are any questions. Chloride 102 98 - 107 mmol/L [facility] Carbon Dioxide 26 22 - 31 mmol/L [facility] Anion Gap 9 5 - 15 mmol/L [facility] Calcium 9.1 8.5 - 10.5 mg/dL [facility] Est Glomerular Filtration Rate 115 >=60 mL/min/1. 73 m?? [facility] Comment: This patient's estimated GFR was [...] MD CHEMISTRY ORDERABLES [facility] [place] [address] documented in this encounter Visit Diagnoses Diagnosis Dilated cardiomyopathy Other primary cardiomyopathies Dilated cardiomyopathy Other primary cardiomyopathies documented in this encounter Active and Recently Administered Medications Care Teams Wearing Apparel Presser Relationship Specialty Start Date End Date Edie Ellis MD [address] [place] [address] PCP - General 10/15/10 documented as of this encounter
--- OUTSIDE RECORDS SUMMARY | 2024-08-15 16:59 | XMS_ITS | Encounter Summary ---
[place] [address] Care Team Providers Care Wheel And Caster Repairer Name Role Phone Edie Ellis MD Primary Care Provider [phone] Reason for Referral * Consultation (Routine) - Closed Specialty Diagnoses / Procedures Referred By Geraldine olmedo Referred To Contact Orthopaedics Diagnoses RIGHT SHOULDER PARTIAL ROTATOR CUFF TEAR Edie Ellis MD [address] [place] [address] [facility] [address] [place] [phone] Referral ID Status Reason Start Date Expiration Date V isits Requested Visits Authorized [id number] Closed Consult, Test & Treat PCP Updated and/or Approved 04/10/2023 04/09/2024 6 6 Encounter Details Date Type Department Care Team (Latest Contact Info) Description 04/10/2023 Transcribe Orders eDH Incoming Referrals [phone] Edie Ellis MD [address] [place] [address] Traumatic rotator cuff tear, unspecified [...] 10/05/2024 11:00 AM EST Appointment XRay at [address] [place] [address] 10/05/2024 1:10 PM EST Appointment MRI at [place] [phone] Pricilla Finney MD [facility] [place] [address] 10/05/2024 1:10 PM EST Appointment MRI at [place] [phone] Pricilla Finney MD [facility] [place] [address] 10/07/2024 10:00 AM EST Hospital Encounter Non-Invasive Cardiology Lab [place] [phone] Arrived Scheduled Referrals Name Type Priority Associated Diagnoses Orde r Schedule Referral to Orthopaedics Outpatient Referral Routine Traumatic rotator cuff tear, unspecified laterality, unspecified tear extent, subsequent encounter Ordered: 04/10/2023 documented as of this encounter Visit Diagnoses Diagnosis Traumatic rotator cuff tear, unspecified laterality, unspecified tear extent, subsequent encounter documented in this encounter Care Teams Wheel And Caster Repairer Relationship Specialty Start Date End Date Edie Ellis MD [address] [place] [address] PCP - General 10/15/10 documented as of this encounter
--- OUTSIDE RECORDS SUMMARY | 2024-08-15 16:59 | XMS_ITS | Encounter Summary ---
[place] [address] Care Team Providers Care Army Senior Officer Name Role Phone Edie Ellis MD Primary Care Provider [phone] Reason for Visit * Reason Onset Date Comments Pre Procedure Call 07/21/2023 Encounter Details Date Type Department Care Team (Late st Contact Info) Description 07/21/2023 Telephone Cardiology at [address] [phone] Loretta Carreon, RN Pre Procedure Call Social [...] Pre Procedure Call: Defibrillator Function Testing SABAS TURNER SPLITTER MACHINE OPERATOR COORDINATION CHECKLIST Patient Name: Jammie Gottlieb Patient Performing Casino Gaming Inspector: Jonathan Willson Referring Provider: Hero Taylor Date of Procedure: 08/07/23 Arrival Time/ Case Time: 7:00 am / 8:30 am Check In Location: Test Eng Desk 4W Date Patient was Called: 07/21/23 Procedure: Defibrillator Function Threshold Testing Company: [facility] Orders: Yes Lab Orders: Yes Anesthesia: GA [...] day , understands that they will need city route driver on day of discharge documented in this encounter Plan of Treatment Upcoming Encounters Date Type Department Care Team (Late st Contact Info) Description 10/05/2024 11:00 AM EST Appointment XRay at [address] [place] [address] 10/05/2024 1:10 PM [place] [address] Pricilla Finney MD [facility] [place] [address] 10/05/2024 1:10 PM [place] [address] Pricilla Finney MD [facility] [place] [address] 10/07/2024 10:00 AM EST Hospital Encounter Non-Invasive [place] [address] Arrived documented as of this encounter Visit Diagnoses Not on filedocumented in this encounter Care Teams Army Senior Officer Relationship Specialty Start Date End Date Edie Ellis MD [facility] [address] [place] [address] PCP - General 10/15/10 documented as of this encounter
--- OUTSIDE RECORDS SUMMARY | 2024-08-15 16:59 | XMS_ITS | Encounter Summary ---
Author Organization [facility] [place] [address] Care Team Providers Care Ware Cleaner Name Role Phone Edie Ellis MD Primary Care Provider [phone] Encounter Details Date Type Department Care Team [...] 10/05/2024 11:00 AM EST Appointment XRay at [address] [place] [address] 10/05/2024 1:10 PM [place] [address] Pricilla Finney MD [facility] [address] 10/05/2024 1:10 PM [place] [address] Pricilla Finney MD [facility] [place] [address] 10/07/2024 10:00 AM EST Hospital Encounter Non-[place] [address] Arrived documented as of this encounter Visit Diagnoses Not on filedocumented in this encounter Care Teams Ware Cleaner Relationship Specialty Start Date End Date Edie Ellis MD [facility] [address] [facility] 1 [place] [address] PCP - General 10/15/10 documented as of this encounter
--- OUTSIDE RECORDS SUMMARY | 2024-08-15 16:59 | XMS_ITS | Encounter Summary ---
Author Organization [facility] [place] [address] Care Team Providers Care Transportation Escort Name Role Phone Edie Ellis MD Primary Care Provider [phone] Reason for Visit * Auth/Cert (Routine) Specialty Diagnoses / Procedures Referred By Geraldine t Referred To Contact Diagnoses Cardiomyopathy, unspecified type [I42.9]Syncope, unspecified syncope type [R55]Family history of sudden cardiac [Z82.41] Procedures ELECTROPHYSIOLOGY PROCEDURE Tigre Whiteside MD [facility] [place] [address] [facility] Referral ID Status Reason Start Date Expiration Date Visits Re quested Visits Authorized [id number] 1 1 Encounter Details Date Type Department Care Team (Latest Contact Info) Description 07/14/2023 6:25 AM EDT - 07/15/2023 12:59 PM EDT Hospital Encounter Short [place] Unit [place] [address] Tigre Whiteside MD [facility] [place] [address] Cardiomyopathy, unspecified type; Syncope, unspecified syncope type; [...] Jammie Gottlieb Patient Age: 48 y.o. Language: Comoran Race: White Ethnicity: Not nor Admit date: 07/14/2023 Discharge date and time: 07/15/2023 1100 Attending Physician: Tigre Whiteside MD Discharge Physician: Tigre Whiteside MD Follow-up Recommendations for Providers: NEW - Small [employer] subcutaneous ICD Device function is normal Stable for discharge to home Scheduled for ~ day post implant device follow up in device clinic Scheduled for DFT test - Arrive 0700 to Same Day for DFT on Thursday, August 07 Reports moderate pain(expected at implant site), refractory to acetaminophen/ice - #20 hyrdomorphone Refill provided; zero refills Inpatient Provider Contact Information: Cardiac Electrophysiology [phone], option #3 Discharge Diagnoses (Hospital Problems) and Secondary Diagnoses (Chronic Problems): Active Hospital Problems Diagnosis HFrEF (heart failure with reduced ejection fraction) SQ ICD, [employer], single lead Resolved Hospital Problems No [...] for primary prevention subcutaneous ICD. Hospital Course: [employer] SQ ICD implanted without complication. Non-inducible [...] Data is abnormally low Treatments: Device Data: Hospital Cook Model # Serial # Generator [employer] 24 [id number] Ventricular Lead [employer] 24 [id number] Impedance (ohms) Shock (10J) 87 Programming: Rate [...] 1 capsule Refills: 0 naloxone 4 mg/actuation [place], Non-Aerosol Commonly known as: Narcan Once Refills: [...] the incision. Make sure to use a personal clothing laundry aide (such as a towel) in between the [...] if you have any personal concerns, contact [facility] Electrophysiology at [phone]. Do not attempt to readjust the Clozex?? [...] questions. The office scheduling phone number is [phone]. If you have any questions or concerns about this product, please call the device clinic at [phone]. General Instructions None Future Appointments and Orders Future Appointments and Orders Future Appointments Provider Department Dept Phone 07/20/2023 1:00 PM PRE ANESTHESIA, CONSULT Same Day at [facility] Arrive at: Home [phone] To view instructions for your video visit, click here, or visit this website: [email or web address] If you have not previously downloaded the [facility] patient portal software, Clear Standards, or the DGIT joe, please do so by clicking one [...] 9:30 AM Tila Elmore RN Cardiology at [facility] Arrive at: Care Mgr Area [phone] 10/13/2023 9:30 AM Tila Elmore RN Cardiology at [facility] Arrive at: Care Mgr Area [phone] Discharge References/Attachments None documented in this encounter Discharge Instructions * Patient Instructions* Hunter Mcclain PA - 07/14/2023 10:55 AM EDT FINAL ICD RECOMMENDATIONS: 1. Standard post implant discharge instructions (see below): 2. Medications as listed above. 3. You may use ice packs over the incision. Make sure to use a personal clothing laundry aide (such as a towel) in between the [...] if you have any personal concerns, contact [facility] Electrophysiology at [phone]. Do not attempt to readjust the Clozex?? [...] questions. The office scheduling phone number is [phone]. If you have any questions or concerns about this product, please call the device clinic at [phone]. documented in this encounter Medications at Time [...] a day 03/12/2015 naloxone (Narcan) 4 mg/actuation [place], Non-Aerosol Once 03/10/2019 magnesium oxide (MAG-OX) 400 [...] of this encounter Progress Notes * Donna Miguel RN - 07/15/2023 12:[address] [facility] Short Stay Unit Discharge Note All relevant [...] failure with reduced ejection fraction) SQ ICD, [employer], single lead Resolved Hospital Problems No resolved problems to display. Interval History: 48 y.o. female with a history of non-ischemic cardiomyopathy with known TTN gene, HTN, DM2, syncope, EF 42%, admitted for primary prevention subcutaneous ICD. [employer] SQ ICD implanted without complication. Non-inducible [...] 199 mg/dL Pertinent Radiographic/Diagnostic Results: Device Data: Hospital Cook Model # Serial # Generator [employer] [id number] [id number] Ventricular Lead [employer] [id number] [id number] Impedance (ohms) Shock (10J) 87 Programming: Rate [...] 42%, admitted for primary prevention subcutaneous ICD. [employer] SQ ICD implanted without complication. Non-inducible for VT/VF. 10j shock impedance = 87 ohms. Plan: Device function is normal Stable for discharge to home Scheduled for DFT test - Arrive 0700 to Same Day for DFT on August 07 Provider: ANNE Oneal EP Consult attending physician: Juan Taylor MD EP Consult positional pager #[phone](EPMD) EP Device interrogation positional pager # [phone] Associated attestation - Hero Taylor MD - [...] ~ 10 days. Hero Taylor MD, PhD, [facility] Cardiac Electrophysiology * Leelee Barone RN - 07/14/2023 11:10 AM EDT 1050: Jammie Gottlieb arrived from in a bed to PACU 1. Pt was attached to monitors, alarms set appropriately & audible. NSR on property assessment monitor, lungs are clear. Sternal & Flank [...] ARRAY, EPIDURAL performed by CARINE CHATTERJEE at [facility] MAIN OR PRO UNLISTED PROCEDURE, MUSCULOSKELETAL [...] completed. Hola Mahan MD Cardiac Electrophysiology Fellow [facility] Pager [phone] 07/14/2023 Addendum 48 y.o.woman with longstanding NICM, [...] visit, click here, or visit this website: [email or web address] If you have not previously downloaded the [facility] patient portal software, Clear Standards, or the DGIT joe, please do so by clicking one [...] AM (Arrive by 9:10 AM) Cardiology at [address] [address] Arrive at: Care Mgr Area 4A OCT 13 Office Visit with Tila Anand RN Thursday 9:30 AM (Arrive by 9:10 AM) Cardiology at [address] [address] Arrive at: Care Mgr Area 4A Transportation: family or friend will [...] 10/05/2024 11:00 AM EST Appointment XRay at [address] [place] [address] 10/05/2024 1:10 PM [place] [address] Pricilla Finney MD [facility] [place] [address] 10/05/2024 1:10 PM [place] [address] Pricilla Finney MD [facility] [place] [address] 10/07/2024 10:00 AM EST Hospital Encounter Non-Invasive Cardiology [place] [address] Arrived documented as of this encounter Procedures [...] who have questions please contact the health wound care center consultant that requested your imaging first. ? Narrative [...] patients who have questions please contactthe health wound care center consultant that requested your imaging first. Electronically signed by: Radha Brown MD, [facility]([phone]), at 07/15/2023 8:35 AM Tigre Whiteside MD IMG DX ORDERABLES * POCT Glucose (07/14/2023 10:55 AM EDT) Glucose, POC 135 65 - 199 mg/dL [facility] Comment: Supplemental ranges: <140 mg/dL before meals <180 mg/dL all other times of the day Blood 07/14/2023 10:5 5 AM EDT 07/14/2023 10:55 AM EDT Tigre Whiteside MD POINT OF CARE TEST O RDERABLES [facility] [place] [address] * ELECTROPHYSIOLOGY PROCEDURE (07/14/2023 8:45 AM EDT) Anatomical Region Laterality Modality Other Narrative 07/14/2023 3:32 PM EDT Table formatting from the original result was not included. [facility] Electrophysiology Procedure Note Patient Name: Jammie Gottlieb Patient : 1975 Mortgage Loan Processor: Tigre Whiteside MD Fellow: Hola Mahan MD [...] the entire procedure. Lead and Generator Data: Hospital Cook Model # Serial # Generator [employer] 24 [id number] [id number] Ventricular Lead [employer] 24 3501 [id number] Data: Impedance (ohms) Shock (10J) 87 Programming: [...] defibrillation threshold testing (attempted) I was the jig box operator, present for the entire procedure and personally edited this note TIGRE WHITESIDE MD Tigre Whiteside MD EP PROCEDURE ORDERAB LES * (ABNORMAL) Basic Metabolic Panel (non-fasting) (07/14/2023 7:00 AM EDT) Glucose 161 65 - 199 mg/dL [facility] Comment:Diabetes: >=200 mg/d L plus symptoms Blood Urea Nitrogen 14 8 - 18 mg/dL [facility] Creatinine 0.44(L) 0.70 - 1.20 mg/dL [facility] Sodium 139 135 - 145 mmol/L [facility] Potassium 4.6 3.5 - 5.0 mmol/L [facility] Comment: Please note: ??Patients with WBC >100,000 may have falsely elevated Potassium levels. ??For accurate Potassium quantification in these patients send serum separator tube (gold top) for subsequent determinations. ??Contact the Clinical Chemistry Laboratory if there are any questions. Chloride 105 98 - 107 mmol/L [facility] Carbon Dioxide 25 22 - 31 mmol/L [facility] Anion Gap 9 5 - 15 mmol/L [facility] Calcium 8.9 8.5 - 10.5 mg/dL [facility] Est Glomerular Filtration Rate 119 >=60 mL/min/1. 73 m?? [facility] Comment: This patient's estimated GFR was [...] In Lab Tigre Whiteside MD CHEMISTRY ORDERABLES [facility] [place] [address] * EKG 12 Lead (07/14/2023 6:51 AM EDT) Ventricular rate 79 BPM MUSE SYSTEM Atrial Rate 79 BPM MUSE SYSTEM P-R Interval 180 ms MUSE SYSTEM QRS Duration 78 ms MUSE SYSTEM Q-T Interval 408 ms MUSE SYSTEM QTC Calculated (Bezet) 467 ms MUSE SYSTEM Calculated P [place] 2 degrees MUSE SYSTEM Calculated R [place] -14 degrees MUSE SYSTEM Calculated T [place] 16 degrees MUSE SYSTEM INTERPRETATION Normal sinus rhythm Septal infarct , age undetermined Poor R wave progression Abnormal ECG When compared with ECG of 02-JUL-2023 14:20, Septal infarct is now Present I personally reviewed the tracing and edited the fellows interpretation Confirmed by fellow Oscar Kidd ([id number]) on 07/14/2023 9:20:46 AM Confirmed by MD Sophie, Loyda ([id number]) on 07/14/2023 5:28:26 PM MUSE SYSTEM 07/14/2023 6:51 AM EDT 07/14/2023 5:28 PM EDT Tonia Crystal MD ECG ORDERABLES MUSE SYSTEM * POCT Glucose (07/14/2023 6:37 AM EDT) Glucose, POC 156 65 - 199 mg/dL [facility] Comment: Supplemental ranges: <140 mg/dL before meals <180 mg/dL all other times of the day Blood 07/14/2023 6:37 AM EDT 07/14/2023 6:37 AM EDT Tigre Whiteside MD POINT OF CARE TEST O RDERABLES [facility] [place] [address] documented in this encounter Visit Diagnoses Diagnosis HFrEF (heart failure with reduced ejection fraction)- Primary Cardiomyopathy, unspecified type Syncope, unspecified syncope type Family history of sudden cardiac Family history of sudden cardiac (SCD) SQ ICD, [employer], single lead Cardiomyopathy, unspecified type Syncope, [...] provider supervision and verbal order., EP (Intra-Procedure), STAT, Indication for (Active or Suspected): Prophylaxis New Bag 07/14/2023 7:40 AM EDT 1.5 [...] Routine 1500 (Not Given - Provider: Donna Miguel RN - Reason: Contraindicated - Comment: pt took this AM) 08 (Given - Provider: Donna Miguel RN) DULoxetine DR (Cymbalta) capsule 40 mg 40 mg, Oral, EVERY EVENING, First dose (after last modification) on Thu07/14/23 at 1700, Until Discontinued 2024 (Given - Provider: Carmen Barnett RN) estradioL (Estrace) tablet 1 mg 1 mg, Oral, DAILY, First dose on Thu07/15/23 at 0900, Until Discontinued, DO NOT SPLIT, CRUSH OR OPEN, Routine 1330 (Not Given - Provider: Donna Miguel RN - Reason: Medication not available) 08 (Given - Provider: Donna Miguel RN) estradioL (Estrace) tablet 1.5 mg 1.5 [...] Prophylaxis 1330 (Not Given - Provider: Donna Miguel RN - Reason: Medication not available) 0900 (Not Given - Provider: Donna Miguel RN - Reason: Medication not available) icosapent ethyL (Vascepa) Capsule 2 g 2 g, Oral, 2 TIMES DAILY, First dose on Thu07/14/23 at 1330, Until Discontinued 1329 (Not Given - Provider: Donna Miguel RN - Reason: Medication not available)2100 (Not Given - Provider: Carmen Barnett RN - Reason: Patient/family refused) 0900 (Not Given - Provider: Donna Miguel RN - Reason: Medication not available) lamoTRIgine (LaMICtal) tablet 100 mg 100 mg, Oral, EVERY EVENING, First dose (after last modification) on Thu07/14/23 at 1700, Until Discontinued, Routine 2024 (Given - Provider: Carmen Barnett RN) levothyroxine (Synthroid) tablet 25 mcg 25 mcg, Oral, EVERY MORNING, First dose on Thu07/15/23 at 0600, Until Discontinued, Routine 05 (Given - Provider: Carmen Barnett RN) magnesium oxide (Mag-Ox) tablet 400 mg 400 mg, Oral, 2 TIMES DAILY, First dose on Thu07/14/23 at 1330, Until Discontinued, Routine 1329 (Not Given - Provider: Donna Miguel RN - Reason: Patient/family refused)2023 (Given - Provider: Carmen Barnett RN) 08 (Given - Provider: Donna Miguel RN) metFORMIN XR (Glucophage XR) tablet 500 mg 500 mg, Oral, 2 TIMES DAILY, First dose on Thu07/14/23 at 1700, Until Discontinued, Routine 170 (Not Given - Provider: Donna Miguel RN - Reason: Medication not available) 0900 (Not Given - Provider: Donna Miguel RN - Reason: Medication not available) metoprolol succinate XL (Toprol-XL) tablet 100 mg 100 mg, Oral, DAILY, First dose on Thu07/14/23 at 1330, Until Discontinued, DO NOT CRUSH OR OPEN, Routine 1330 (Not Given - Provider: Donna Miguel RN - Reason: Patient/family refused - Comment: pt states that she no longer takes) 0900 (Not Given - Provider: Donna Miguel RN - Reason: Patient/family refused - Comment: [...] Routine 1330 (Not Given - Provider: Donna Miguel RN - Reason: Medication not available)2023 (Given - Provider: Carmen Barnett RN) 0804 (Given - Provider: Donna Miguel RN) rosuvastatin (Crestor) tablet 10 mg 10 mg, Oral, EVERY EVENING, First dose on Thu07/14/23 at 1700, Until Discontinued, Routine 1702 (Given - Provider: Donna Miguel, CHARLY) sacubitriL-valsartan (Entresto) 97-103 mg per tablet 1 tablet 1 tablet, Oral, 2 TIMES DAILY, First dose on Thu07/14/23 at 1330, Until Discontinued, Routine, Is this a continuation of home medication? Yes 1330 (Not Given - Provider: Donna Miguel RN - Reason: Patient/family refused)2022 (Given - Provider: Carmen Barnett RN) 0803 (Given - Provider: Donna Miguel, CHARLY) vancomycin (Vancocin) 1.5 gram in sodium chloride 0.9% 500 mL infusion (COMPLETED) 1.5 g, Intravenous, at 333.3 mL/hr, ONCE, 1 dose, On Thu07/14/23 at 0745, For use in the electrophysiology lab (EP lab) only with direct provider supervision and verbal order., EP (Intra-Procedure), STAT, Indication for (Active or Suspected): Prophylaxis 0740 (New Bag - Provider: Nesha Vargas [...] Barnett RN) 0732 (Given - Provider: Donna Miguel RN)1245 (Given - Provider: Donna Miguel RN) clonazePAM (KlonoPIN) tablet 1 mg 1 [...] Barnett RN)0517 (Given - Provider: Carmen Barnett RN)4059 (Given - Provider: Mary Robles, CHARLY) loratadine (Claritin) tablet 10 mg 10 mg, [...] Routine documented in this encounter Care Teams Transportation Escort Relationship Specialty Start Date End Date Edie Ellis MD [facility] [address] [place] [address] PCP - General 10/15/10 documented as of this encounter
--- OUTSIDE RECORDS SUMMARY | 2024-08-15 16:59 | XMS_ITS | Encounter Summary ---
Author Organization Formerly [facility] Address [facility] [place] [address] Care Team Providers Care Coin Machine Mechanic Name Role Phone Edie Ellis MD Primary Care Provider [phone] Encounter Details Date Type Department Care Team [...] 11:00 AM EST Appointment XRay at [address] [place] [address] 10/05/2024 1:10 PM [place] [address] Pricilla Finney MD [facility] [place] [address] 10/05/2024 1:10 PM [place] [address] Pricilla Finney MD [facility] [place] [address] 10/07/2024 10:00 AM EST Hospital Encounter [place] [address] Arrived documented as of this encounter Visit Diagnoses Not on filedocumented in this encounter Care Teams Coin Machine Mechanic Relationship Specialty Start Date End Date Edie Ellis MD [facility] [address] [facility] [address] [place] [address] PCP - General 10/15/10 documented as of this encounter
--- OUTSIDE RECORDS SUMMARY | 2024-08-15 16:59 | XMS_ITS | Encounter Summary ---
Author Organization [facility] Address [facility] [place] [address] Care Team Providers Care Mangle Operator Garments Name Role Phone Edie Ellis MD Primary Care Provider [phone] Encounter Details Date Type Department Care Team (Latest Contact Info) Description 08/07/2023 6:55 AM EDT - 08/07/2023 10:20 AM EDT Hospital [place] [address] Jonathan Willson MD [facility] [place] [address] Dilated cardiomyopathy Discharge Disposition: Home Social History [...] F. The office scheduling phone number is [phone]. documented in this encounter Medications at Time [...] a day 03/12/2015 naloxone (Narcan) 4 mg/actuation [place], Non-Aerosol Once 03/10/2019 magnesium oxide (MAG-OX) 400 [...] note were not included. Jammie Gottlieb 1975 [id number] Primary Care Physician Edie Ellis MD 08/07/23 [...] Patient Active Problem List Diagnosis SQ ICD, [employer], single lead Florist Designer Model # Serial # Generator [employer] [id number] Ventricular Lead [employer] 3501 [id number] HFrEF (heart failure with reduced ejection fraction) [...] Spacer USE DIRECTED naloxone (Narcan) 4 mg/actuation [place], Non-Aerosol Once valACYclovir (VALTREX) 1 g tablet [...] of the procedure. Written consent obtained Will global climate change researcher her dressings today JONATHAN WILLSON MD 08/07/2023 Pager [phone] Plan 1) Anticipate DFT test 2) Discharge [...] 10/05/2024 11:00 AM EST Appointment XRay at [address] [place] [address] 10/05/2024 1:10 PM [place] [address] Pricilla Finney MD [facility] [place] [address] 10/05/2024 1:10 PM [place] [address] Pricilla Finney MD [facility] [place] [address] 10/07/2024 10:00 AM EST Hospital Encounter Non-Invasive Cardiology Lab [facility] [place] [address] Arrived documented as of this encounter Procedures [...] (at implant and today) I was the paper cutting machine operator, present for the entire procedure and personally edited this note JONATHAN WILLSON MD Narrative 08/07/2023 3:16 PM EDT SQ ICD Surveillance, Monitored Anesthesia Care Indication: Assessment of defibrillation thresholds, unable to induce VF at initial implant Operators: ??Reinaldo Connelly MD; Jonathan DIXON.[facility]. Procedure: The patient was brought to the Electrophysiology Lab in the fasting state and continuous electrocardiographic monitoring was instituted. ICD evaluation and DFT testing was performed under moderate sedation with monitored anesthesia care ICD Evaluation: [employer] Emblem A219 Device Serial Number: [id number] Battery: 100% to LISA A 10 joule [...] Glucose, POC 152 65 - 199 mg/dL [facility] Comment: Supplemental ranges: <140 mg/dL before meals <180 mg/dL all other times of the day Blood 08/07/2023 7:46 AM EDT 08/07/2023 7:46 AM EDT Jonathan Willson MD POINT OF CARE TEST O RDERABLES [facility] [place] [address] * (ABNORMAL) BMP w/fasting Glucose (08/07/2023 7:38 AM EDT) Glucose Fasting 165(H) 65 - 99 mg/dL [facility] Comment: ?Fasting* Glucose Interpretive Criteria [...] Urea Nitrogen 17 8 - 18 mg/dL [facility] Creatinine 0.52(L) 0.70 - 1.20 mg/dL [facility] Sodium 137 135 - 145 mmol/L [facility] Potassium 4.7 3.5 - 5.0 mmol/L [facility] Comment: Please note: ??Patients with WBC >100,000 may have falsely elevated Potassium levels. ??For accurate Potassium quantification in these patients send serum separator tube (gold top) for subsequent determinations. ??Contact the Clinical Chemistry Laboratory if there are any questions. Chloride 102 98 - 107 mmol/L [facility] Carbon Dioxide 26 22 - 31 mmol/L [facility] Anion Gap 9 5 - 15 mmol/L [facility] Calcium 9.1 8.5 - 10.5 mg/dL [facility] Est Glomerular Filtration Rate 115 >=60 mL/min/1. 73 m?? [facility] Comment: This patient's estimated GFR [...] In Lab Hero Taylor MD CHEMISTRY ORDERABLES [facility] [address] documented in this encounter Visit Diagnoses Diagnosis Dilated cardiomyopathy Other primary cardiomyopathies Dilated cardiomyopathy Other primary cardiomyopathies documented in this encounter Active and Recently Administered Medications Care Teams Mangle Operator Garments Relationship Specialty Start Date End Date Edie Ellis MD [address] [place] [address] PCP - General 10/15/10 documented as of this encounter
--- OUTSIDE RECORDS SUMMARY | 2024-08-15 16:59 | XMS_ITS | Encounter Summary ---
Author Organization [facility] Address [facility] [place] [address] Care Team Providers Care Contractor Field Hauling Name Role Phone Edie Ellis MD Primary Care Provider [phone] Encounter Details Date Type Department Care Team [...] 10/05/2024 11:00 AM EST Appointment XRay at [address] [place] [address] 10/05/2024 1:10 PM [place] [address] Pricilla Finney MD [facility] [address] 10/05/2024 1:10 PM [place] [address] Pricilla Finney MD [facility] [address] 10/07/2024 10:00 AM EST Hospital Encounter Non-Invasive [place] [address] Arrived documented as of this encounter Visit Diagnoses Not on filedocumented in this encounter Care Teams Contractor Field Hauling Relationship Specialty Start Date End Date Edie Ellis MD [facility] [address] [facility] [address] [place] [address] PCP - General 10/15/10 documented as of this encounter
--- OUTSIDE RECORDS SUMMARY | 2024-08-15 16:59 | XMS_ITS | Encounter Summary ---
Author Organization [facility] Address [facility] [place] [address] Care Team Providers Care Small Craft Operator Name Role Phone Edie Ellis MD Primary Care Provider [phone] Encounter Details Date Type Department Care Team (Late st Contact Info) Description 07/15/2023 Orders Only Cardiology at [address] [address] Hero Taylor MD [facility] [place] [place] [address] Dilated cardiomyopathy Social History Tobacco Use Types [...] 10/05/2024 11:00 AM EST Appointment XRay at [address] [place] [address] 10/05/2024 1:10 PM [place] [address] Pricilla Finney MD [facility] [place] [address] 10/05/2024 1:10 PM [place] [address] Pricilla Finney MD [facility] [place] [address] 10/07/2024 10:00 AM EST Hospital Encounter Non-[place]vasive [place] [address] Arrived documented as of this encounter Visit Diagnoses Diagnosis Dilated cardiomyopathy Other primary cardiomyopathies documented in this encounter Care Teams Small Craft Operator Relationship Specialty Start Date End Date Edie Ellis MD [address] [place] [address] PCP - General 10/15/10 documented as of this encounter
--- OUTSIDE RECORDS SUMMARY | 2024-08-15 16:59 | XMS_ITS | Encounter Summary ---
[place] [address] Care Team Providers Care Eclectic Doctor Name Role Phone Edie Ellis MD Primary Care Provider [phone] Reason for Visit * Reason Onset Date Comments Follow-up 04/30/2023 Entresto start Encounter Details Date Type Department Care Team (Late st Contact Info) Description 04/30/2023 Telephone Cardiology at [address] [phone] Angélica Polo, RN Follow-up (Entresto start/) Social [...] 04/30/2023 2:31 PM EDT Pt returning this rfp writer's call. She is feeling well. Home BP readings are mostly good. Lowest 99/77, up to 123/87. Denies any swelling in legs or abd. Weights are steadily going done. She will get BMP at [facility], will call to make an appointment for [...] Message left for her to call the rfp writer with an update. Call placed to [...] 10/05/2024 11:00 AM EST Appointment XRay at [address] [place] [address] 10/05/2024 1:10 PM EST Appointment MRI at [facility] [address] Pricilla Finney MD [facility] [place] [address] 10/05/2024 1:10 PM [place] [address] Pricilla Finney MD [facility] [place] [address] 10/07/2024 10:00 AM EST Hospital Encounter Non-Invasive [place] [address] Arrived documented as of this encounter Visit Diagnoses Not on filedocumented in this encounter Care Teams Eclectic Doctor Relationship Specialty Start Date End Date Edie Ellis MD [address] [place] [address] [address] [place] [address] PCP - General 10/15/10 documented as of this encounter
--- OUTSIDE RECORDS SUMMARY | 2024-08-15 16:59 | XMS_ITS | Encounter Summary ---
Author Organization [facility] Address [facility] [place] [address] Care Team Providers Care Trip Follower Name Role Phone Edie Ellis MD Primary Care Provider [phone] Encounter Details Date Type Department Care Team (Late st Contact Info) Description 08/03/2023 Orders Only Cardiology at [address] [address] Leelee Miller PA [facility] [place] [address] ICD, [employer] Scientific, single lead; Skin wound from surgical [...] 10/05/2024 11:00 AM EST Appointment XRay at [address] [place] [address] 10/05/2024 1:10 PM [place] [phone] Pricilla Finney MD [facility] [place] [address] 10/05/2024 1:10 PM [place] [address] Pricilla Finney MD [facility] [place] [address] 10/07/2024 10:00 AM EST Hospital Encounter Non[place] [address] Arrived documented as of this encounter Visit Diagnoses Diagnosis SQ ICD, [employer], single lead Skin wound from surgical incision documented in this encounter Care Teams Trip Follower Relationship Specialty Start Date End Date Edie Ellis MD [address] [place] [address] PCP - General 10/15/10 documented as of this encounter
--- OUTSIDE RECORDS SUMMARY | 2024-08-15 16:59 | XMS_ITS | Encounter Summary ---
Author Organization [facility] [place] [address] Care Team Providers Care Ferry Hand Name Role Phone Edie Ellis MD Primary Care Provider [phone] Encounter Details Date Type Department Care Team (Late st Contact Info) Description 07/06/2023 Telephone Cardiology at [address] [phone] Loretta Carreon, RN Social History Tobacco Use [...] Pre Procedure Call: SQ ICD implant EP [employer] MANAGEMENT OFFICER COORDINATION CHECKLIST Patient Name: Jammie Gottlieb Patient Performing Media Monitor: Jonathan Willson Referring Provider: Kina Awad Date of Procedure:07/14/23 Arrival Time/ Case Time: 6:00 am / 7:30 am Check In Location: [employer] Hand Desk 4W Date Patient was Called: 07/06/23 Procedure: ICD implant Company: [facility] Type: SQ ICD Laterality: LEFT Orders: Yes [...] overnight , understands that they will need local driver on day of discharge Notified pt that Rao catheter may be placed on day of procedure depending on type & duration of case. documented in this encounter Plan of Treatment Upcoming Encounters Date Type Department Care Team (Late st Contact Info) Description 10/05/2024 11:00 AM EST Appointment XRay at [address] [place] [address] 10/05/2024 1:10 PM [place] [address] Pricilla Finney MD [facility] [place] [address] 10/05/2024 1:10 PM [place] [phone] Pricilla Finney MD [facility] [place] [address] 10/07/2024 10:00 AM EST Hospital Encounter Non-Invasive [place] [address] Arrived documented as of this encounter Visit Diagnoses Not on filedocumented in this encounter Care Teams Ferry Hand Relationship Specialty Start Date End Date Edie Ellis MD [address] [facility] 1 [place] [address] PCP - General 10/15/10 documented as of this encounter
--- OUTSIDE RECORDS SUMMARY | 2024-08-15 16:59 | XMS_ITS | Encounter Summary ---
Author Organization [facility] Address [facility] [place] [address] Care Team Providers Care Stereotyper Name Role Phone Edie Ellis MD Primary Care Provider [phone] Encounter Details Date Type Department Care Team (Late st Contact Info) Description 07/06/2023 Orders Only Cardiology at [address] [address] Kina Awad PA [facility] [place] [address] Social History Tobacco Use Types Packs/Day Years [...] 10/05/2024 11:00 AM EST Appointment XRay at [address] [place] [address] 10/05/2024 1:10 PM [place] [address] Pricilla Finney MD [facility] [place] [address] 10/05/2024 1:10 PM [place] [address] Pricilla Finney MD [facility] [place] [address] 10/07/2024 10:00 AM EST Hospital Encounter Non-Invasive [place] [address] Arrived documented as of this encounter Visit Diagnoses Not on filedocumented in this encounter Care Teams Stereotyper Relationship Specialty Start Date End Date Edie Ellis MD [facility] M[address] [place] [address] PCP - General 10/15/10 documented as of this encounter
--- OUTSIDE RECORDS SUMMARY | 2024-08-15 16:59 | XMS_ITS | Encounter Summary ---
Author Organization [facility] [place] [address] Care Team Providers Care Form Setter/Driver Name Role Phone Edie Ellis MD Primary Care Provider [phone] Encounter Details Date Type Department Care Team (Late st Contact Info) Description 08/03/2023 1:30 PM EDT Office Visit Cardiology at [address] [address] Tila Elmore RN SQ ICD, [employer], single lead Social History Tobacco Use [...] Clinical Electrophysiology Device Service Note Jammie Gottlieb [id number] 08/03/2023 History: 48 y.o. female with a [...] 11:00 AM EST Appointment XRay at [address] [place] [address] 10/05/2024 1:10 PM [place] [address] Pricilla Finney MD [facility] [place] [address] 10/05/2024 1:10 PM [place] [address] Pricilla Finney MD [facility] [place] [address] 10/07/2024 10:00 AM EST Hospital Encounter Non-[place] [address] Arrived documented as of this [...] (Bezet) 465 ms MUSE SYSTEM Calculated P [place] 49 degrees MUSE SYSTEM Calculated R [place] 20 degrees MUSE SYSTEM Calculated T [place] 50 degrees MUSE SYSTEM INTERPRETATION Sinus tachycardia Low voltage QRS Borderline ECG When compared with ECG of 14-JUL-2023 06:51, No significant change was found Confirmed by MD Norm, Torrey ([id number]) on 08/03/2023 4:09:11 PM MUSE SYSTEM 08/03/2023 1:57 PM EDT 08/03/2023 4:09 PM EDT Unknown ECG ORDERABLES MUSE SYSTEM documented in this encounter Visit Diagnoses Diagnosis SQ ICD, [employer], single lead documented in this encounter Care Teams Form Setter/Driver Relationship Specialty Start Date End Date Edie Ellis MD [facility] [address] [place] [address] PCP - General 10/15/10 documented as of this encounter
--- OUTSIDE RECORDS SUMMARY | 2024-08-15 16:59 | XMS_ITS | Encounter Summary ---
[place] [address] Care Team Providers Care Vice President Network Name Role Phone Edie Ellis MD Primary Care Provider [phone] Reason for Visit * Reason Comments Prior Authorization Entresto 24-26mg tab let Encounter Details Date Type Department Care Team (Late st Contact Info) Description 04/13/2023 Specialty [place] [address] Alex Bhagat, STEAM HEATING INSTALLER Social History Tobacco Use Types Packs/Day Years [...] : 1975 Patient Address: [address] [facility] [address] Phone: [phone] (home) Medication Name: ENTRESTO 24 MG-26 MG TABLET Medication ID: [id number] Patient Location: [facility] Patient Location Comment: Medication Strength Frequency Requested: sacubitriL-valsartan (Entresto) 24-26 mg tablet, 1 tablet twice Qty/Day Supply: / New Start: New to Therapy Diagnosis & ICD-10 Code: HFrEF (heart failure with reduced ejection fraction) I50.20 Subscriber Insurance: [employer]) Subscriber Insurance Comment: Phone: Fax: Physician: JOANA CHOI Physician Comment : PA Status: PA Not Needed Insurance mandated Pharmacy: Unknown Fillable at - Specialty Pharmacy: Yes Insurance requirements/notes: None Copay: $0.00 Copay assistance: Copay assistance comment: Pharmacy staff will be reaching out to the patient to inform them of their medication's approval byuc healthir insurance. If applicable, a pharmacist will speak with the patient to offer our specialty pharmacy services and to arrange delivery of their medication. Alex Bhagat 04/13/23 1:38 PM documented in this encounter Plan of Treatment Upcoming Encounters Date Type Department Care Team (Late st Contact Info) Description 10/05/2024 11:00 AM EST Appointment XRay at [address] [place] [address] 10/05/2024 1:10 PM EST [place] [address] Priiclla Finney MD [facility] [place] [address] 10/05/2024 1:10 PM EST [place] [address] Pricilla Finney MD [facility] [place] [address] 10/07/2024 10:00 AM EST Hospital Encounter Non-Invasive [place] [address] Arrived documented as of this encounter Visit Diagnoses Not on filedocumented in this encounter Care Teams Vice President Network Relationship Specialty Start Date End Date Edie Ellis MD [address] [place] [address] [address] [place] [address] PCP - General 10/15/10 documented as of this encounter
--- OUTSIDE RECORDS SUMMARY | 2024-08-15 16:59 | XMS_ITS | Encounter Summary ---
Author Organization [facility] Address [facility] [place] [address] Care Team Providers Care Heel Cover Splitter Name Role Phone Edie Ellis MD Primary Care Provider Reason for Visit * Reason Comments Establish Care RT SHOULDER PARTIAL ROTATOR CUFF TEAR DISCUSS SURGICAL OPTIONS 2ND OPINION TRA * Consultation (Routine) - Closed Specialty Diagnoses / Procedures Referred By Geraldine olmedo Referred To Contact Orthopaedics Diagnoses RIGHT SHOULDER PARTIAL ROTATOR CUFF TEAR Edie Ellis MD [facility] [address] [place] [address] [facility] Orth[facility]ics [address] [place] [address] Referral ID Status Reason Start Date Expiration Date V isits Requested Visits Authorized [id number] Closed Consult, Test & Treat PCP Updated and/or Approved 04/10/2023 04/09/2024 6 6 Encounter Details Date Type Department Care Team (Late st Contact Info) Description 07/03/2023 11:40 AM EDT Office [place] [address] Rory Kaminski MD [facility] [place] [address] Chronic pain in right shoulder [...] surgery. Jammie plans to pursue PT at [facility] in [facility] Discussed making sure they take care of child support investigator, sleeping situations, and having help with ADL'sbefore [...] giventhe surgical schedulers direct number Loyda Alvarado Director Of Career Services Department of Orthopaedics Division of Sports Medicine * Rory Kaminski MD - 07/03/2023 11:40 AM EDT Chief complaint: Right shoulder pain HPI: 48-year-old female, patient of Dr. Berg in [place] who is status post left shoulder arthroscopy [...] plan had been to do this in [place] but she has an underlying muscular dystrophy as well as underlying congestive heart failure. She was therefore directed to pursue care here at [facility]. On exam she is pleasant 48-year-old [...] 10/05/2024 11:00 AM EST Appointment XRay at [address] [place] [address] 10/05/2024 1:10 PM EST Appointment MRI at [facility] [place] [address] Pricilla Finney MD [facility] [place] [address] 10/05/2024 1:10 PM [place] [address] Pricilla Finney MD [facility] [place] [address] 10/07/2024 10:00 AM EST Hospital Encounter Non-[place] [address] Arrived documented as of this encounter Visit Diagnoses Diagnosis Chronic pain in right shoulder Pain in joint, shoulder region documented in this encounter Care Teams Heel Cover Splitter Relationship Specialty Start Date End Date Edie Ellis MD [facility] [address] [place] [address] PCP - General 10/15/10 documented as of this encounter
--- OUTSIDE RECORDS SUMMARY | 2024-08-15 16:59 | XMS_ITS | Encounter Summary ---
Author Organization [facility] [place] [address] Care Team Providers Care Lock Fitter Name Role Phone Edie Ellis MD Primary Care Provider [phone] Encounter Details Date Type Department Care Team (Late st Contact Info) Description 08/07/2023 8:36 AM EDT Anesthesia Event [place] [address] Saundra Smith MD [facility] [place] [address] Coty Magallon MD [facility] [place] [address] Anesthesia Record Procedure Summary Procedure Name Responsible [...] / Location: EP B-LAB ROOM 4 / [facility] EP LABS Anesthesia Start: 835 Anesthesia Stop: 907 Procedure: ELECTROPHYSIOLOGY PROCEDURE Diagnosis: Dilated cardiomyopathy (Dilated cardiomyopathy [I42.0]) Providers: Jonathan Willson MD Responsible Provider: Saundra Smith MD Anesthesia Type: MAC ASA Status: 3 All Anesthesia Providers: Anesthesiologist: Saundra Smith MD Terrazzo Finisher Helper: Coty Magallon MD Vitals Value Taken Time BP 98/82 08/07/23 0945 Temp 36.1 ??C (97 ??F) 08/07/23 0904 Pulse 88 08/07/23 0957 Resp 21 08/07/23 0957 SpO2 96 % 08/07/23 1003 Pain Level 0 08/07/23 0945 Vitals shown include unvalidated device data. Patient Location: PACU/[facility] Level of Consciousness: Awake and Alert [...] List Diagnosis Date Noted ??? SQ ICD, Hats[employer], single lead 07/15/2023 ??? HFrEF (heart failure [...] ARRAY, EPIDURAL performed by CARINE CHATTERJEE at [facility] MAIN OR ??? PRO UNLISTED PROCEDURE, [...] 10/05/2024 11:00 AM EST Appointment XRay at [address] [place] [address] 10/05/2024 1:10 PM [place] [address] Pricilla Finney MD [facility] [place] [place] [address] 10/05/2024 1:10 PM [place] [address] Pricilla Finney MD [facility] [place] [address] 10/07/2024 10:00 AM EST Hospital Encounter Non-[place] [address] Arrived documented as of this encounter Visit [...] on Thu08/07/23 at 0832, Until Thu08/07/23 at 0916, Anesthesia Intra-op, Routine Given 08/07/2023 8:32 AM [...] mg documented in this encounter Care Teams Lock Fitter Relationship Specialty Start Date End Date Edie Ellis MD [facility] [address] [place] [address] PCP - General 10/15/10 documented as of this encounter
--- OUTSIDE RECORDS SUMMARY | 2024-08-15 16:59 | XMS_ITS | Encounter Summary ---
Author Organization [facility] [place] [address] Care Team Providers Care Biology Internship Name Role Phone Edie Ellis MD Primary Care Provider [phone] Reason for Visit * Reason Onset Date Comments Follow-up 06/26/2023 Up titration of Entresto Encounter Details Date Type Department Care Team (Late st Contact Info) Description 06/26/2023 Telephone Cardiology at [address] [address] Angélica Polo, RN Follow-up (Up titration of [...] 06/26/2023 12:50 PM EDT Pt returning this specification writer's call. States she has enough of [...] the dose increase. Awaiting a call back. [facility] message sent as well. * Telephone [...] Gottlieb Sent: 06/23/2023 11:47 AM EDT To: [facility] Cardiology Nurse Subject: Blood pressure I'm sending [...] 10/05/2024 11:00 AM EST Appointment XRay at [address] [place] [address] 10/05/2024 1:10 PM EST Appointment MRI at [place] [phone] Pricilla Finney MD [facility] [place] [address] 10/05/2024 1:10 PM [place] [address] Pricilla Finney MD [facility] [place] [address] 10/07/2024 10:00 AM EST Hospital Encounter Non-Invasive [place] [address] Arrived documented as of this encounter Visit Diagnoses Not on filedocumented in this encounter Care Teams Biology Internship Relationship Specialty Start Date End Date Edie Ellis MD [facility] [address] [place] [address] PCP - General 10/15/10 documented as of this encounter
--- OUTSIDE RECORDS SUMMARY | 2024-08-15 16:59 | XMS_ITS | Encounter Summary ---
Author Organization [facility] Address [facility] [place] [address] Care Team Providers Care Exhibitor Sales Name Role Phone Edie Ellis MD Primary Care Provider [phone] Encounter Details Date Type Department Care Team [...] 10/05/2024 11:00 AM EST Appointment XRay at [address] [place] [address] 10/05/2024 1:10 PM [place] [address] Pricilla Finney MD [facility] [place] [address] 10/05/2024 1:10 PM [place] [address] Pricilla Finney MD [facility] [place] [address] 10/07/2024 10:00 AM EST Hospital Encounter Non-Invasive [place] [address] Arrived documented as of this encounter Visit Diagnoses Not on filedocumented in this encounter Care Teams Exhibitor Sales Relationship Specialty Start Date End Date Edie Ellis MD [facility] [address] [facility] 1 [place] [address] PCP - General 10/15/10 documented as of this encounter
--- OUTSIDE RECORDS SUMMARY | 2024-08-15 16:59 | XMS_ITS | Encounter Summary ---
[place] [address] Care Team Providers Care Ramp Attendant Name Role Phone Edie Ellis MD Primary Care Provider [phone] Reason for Visit * Reason Onset Date Comments Follow-up 05/12/2023 Entresto start s /p bmp results Encounter Details Date Type Department Care Team (Late st Contact Info) Description 05/12/2023 Telephone Cardiology at [address] [phone] Angélica Polo, RN Follow-up (Entresto start s/p [...] Telephone Encounter - Angélica Polo RN - 05/15/2023 12:21 PM EDT Pt [...] 05/12/2023 1:08 PM EDT Pt returning this telegraphic typewriter mechanic's call to report that she is doing well. BMP results received from [facility], scanned and entered into eD-H. Results [...] 10/05/2024 11:00 AM EST Appointment XRay at [address] [place] [address] 10/05/2024 1:10 PM [place] [address] Pricilla Finney MD [facility] [place] [address] 10/05/2024 1:10 PM [place] [address] Pricilla Finney MD [facility] [place] [address] 10/07/2024 10:00 AM EST Hospital Encounter Non-[place] [address] Arrived documented as of this encounter Visit Diagnoses Not on filedocumented in this encounter Care Teams Ramp Attendant Relationship Specialty Start Date End Date Edie Ellis MD [facility] [address]ES [address] [facility] 1 [place] [address] PCP - General 10/15/10 documented as of this encounter
--- OUTSIDE RECORDS SUMMARY | 2024-08-15 16:59 | XMS_ITS | Encounter Summary ---
Author Organization [facility] Address [facility] [place] [address] Care Team Providers Care Metal Model Builder Name Role Phone Edie Ellis MD Primary Care Provider [phone] Encounter Details Date Type Department Care Team (Late st Contact Info) Description 07/02/2023 2:00 PM EDT Office Visit Cardiology at [address] [address] Leelee Miller PA [facility] [place] [address] Cardiomyopathy, unspecified type; Syncope, unspecified syncope type; [...] by the Advanced Heart Failure team at [facility] for her familial dilated cardiomyopathy with presence [...] complete loss of consciousness was sometime around [place]. She believes that since starting the Entresto [...] have palpitations infrequently. She was born in [place], [place]. Now lives in [place], [place]. She has 4 children, her youngest (13) lives at home with her and her ex. She does not work due to [employer] limitations. She has 2 dogs, Cody and [...] Twice a day naloxone (Narcan) 4 mg/actuation [place], Non-Aerosol Once magnesium oxide (MAG-OX) 400 mg [...] today shows sinus rhythm at 98 bpm, [place] 134ms, QRS 80ms, QT 376ms, QTc 480ms. [...] MACY Diuretic Discontinued SGLT2i Jardiance ICD or FAMILY PRACTICE PHYSICIAN ASSISTANT-D if indicated SCD in PGF, personal syncope, [...] contact EP with any further questions (pager [phone]). ANNE Ramos 4:26 PM 07/02/23 * Rupal [...] Twice a day naloxone (Narcan) 4 mg/actuation [place], Non-Aerosol Once magnesium oxide (MAG-OX) 400 mg [...] 11:00 AM EST Appointment XRay at [address] [place] [address] 10/05/2024 1:10 PM [place] [address] Pricilla Finney MD [facility] [place] [address] 10/05/2024 1:10 PM [place] [address] Pricilla Finney MD [facility] [place] [address] 10/07/2024 10:00 AM EST Hospital Encounter Non-Invasive Cardiology Lab [facility] [place] [address] Arrived documented as of this encounter Procedures [...] (Bezet) 467 ms MUSE SYSTEM Calculated P [place] 2 degrees MUSE SYSTEM Calculated R [place] -14 degrees MUSE SYSTEM Calculated T [place] 16 degrees MUSE SYSTEM INTERPRETATION Normal sinus rhythm Septal infarct , age undetermined Poor R wave progression Abnormal ECG When compared with ECG of 02-JUL-2023 14:20, Septal infarct is now Present I personally reviewed the tracing and edited the fellows interpretation Confirmed by fellow Oscar Kidd ([id number]) on 07/14/2023 9:20:46 AM Confirmed by MD Sophie, [place] ([id number]) on 07/14/2023 5:28:26 PM MUSE SYSTEM 07/14/2023 6:51 AM EDT 07/14/2023 5:28 PM EDT Tonia Crystal MD ECG ORDERABLES MUSE SYSTEM * EKG 12 Lead (07/02/2023 2:20 PM EDT) Ventricular rate 98 BPM MUSE SYSTEM Atrial Rate 98 BPM MUSE SYSTEM P-R Interval 134 ms MUSE SYSTEM QRS Duration 80 ms MUSE SYSTEM Q-T Interval 376 ms MUSE SYSTEM QTC Calculated (Bezet) 480 ms MUSE SYSTEM Calculated P [place] 51 degrees MUSE SYSTEM Calculated R [place] -3 degrees MUSE SYSTEM Calculated T [place] 37 degrees MUSE SYSTEM INTERPRETATION Normal sinus rhythm Low voltage QRS Prolonged QT Abnormal ECG When compared with ECG of 12-MAR-2023 09:46, No significant change was found Confirmed by MD Pendleton David ([id number]) on 07/02/2023 4:46:49 PM MUSE SYSTEM 07/02/2023 2:20 PM EDT 07/02/2023 4:46 PM EDT Unknown ECG ORDERABLES MUSE SYSTEM documented in this encounter Visit Diagnoses Diagnosis Cardiomyopathy, unspecified type Syncope, unspecified syncope type Family history of sudden cardiac Family history of sudden cardiac (SCD) documented in this encounter Care Teams Metal Model Builder Relationship Specialty Start Date End Date Edie Ellis MD [facility] [address] [place] [address] PCP - General 10/15/10 documented as of this encounter
--- OUTSIDE RECORDS SUMMARY | 2024-08-15 16:59 | XMS_ITS | Encounter Summary ---
Author Organization [facility] [place] [address] Care Team Providers Care Memory Care Program Director Name Role Phone Edie Ellis MD Primary Care Provider [phone] Encounter Details Date Type Department Care Team (Late st Contact Info) Description 06/03/2023 Telephone Cardiology at [address] [phone] Angélica Polo RN Social History Tobacco Use [...] to ANNE Awad to go to the [place]. * Telephone Encounter - Angélica Polo RN [...] send an order to [facility]. Kobi, Angélica ----- Message from Jammie Gottlieb to Kina [...] [phone] Thank you Phone number [phone] documented in this encounter Plan of Treatment Upcoming Encounters Date Type Department Care Team (Late st Contact Info) Description 10/05/2024 11:00 AM EST Appointment XRay at [address] [place] [address] 10/05/2024 1:10 PM EST Appointment MRI at [facility] [place] [address] Pricilla Finney MD [facility] [address] 10/05/2024 1:10 PM [place] [address] Pricilla Finney MD [facility] [place] [address] 10/07/2024 10:00 AM EST Hospital Encounter Non-[place] [address] Arrived documented as of this encounter Visit Diagnoses Not on filedocumented in this encounter Care Teams Memory Care Program Director Relationship Specialty Start Date End Date Edie Ellis MD [facility] [address] [place] [address] PCP - General 10/15/10 documented as of this encounter
--- OUTSIDE RECORDS SUMMARY | 2024-08-15 16:59 | XMS_ITS | Encounter Summary ---
Author Organization [facility] [place] [address] Care Team Providers Care Mva Operator Name Role Phone Edie Ellis MD Primary Care Provider [phone] Reason for Visit * Auth/Cert (Routine) Specialty Diagnoses / Procedures Referred By Geraldine t Referred To Contact Diagnoses Cardiomyopathy, unspecified type [I42.9]Syncope, unspecified syncope type [R55]Family history of sudden cardiac [Z82.41] Procedures ELECTROPHYSIOLOGY PROCEDURE Tigre Whiteside MD [facility] [place] [address] [facility] Referral ID Status Reason Start Date Expiration Date Visits Re quested Visits Authorized [id number] 1 1 Encounter Details Date Type Department Care Team (Late st Contact Info) Description 07/14/2023 7:30 AM EDT - 07/14/2023 11:00 AM EDT Surgery [place] [address] Tigre Whiteside MD [facility] [place] [address] ELECTROPHYSIOLOGY PROCEDURE Social History Tobacco Use Types [...] Jammie Gottlieb Patient Age: 48 y.o. Language: Nigerian Race: White Ethnicity: Not nor Admit date: 07/14/2023 Discharge date and time: 07/15/2023 1100 Attending Physician: Tigre Whiteside MD Discharge Physician: Tigre Whiteside MD Follow-up Recommendations for Providers: NEW - [employer] subcutaneous ICD Device function is normal Stable for discharge to home Scheduled for ~ day post implant device follow up in device clinic Scheduled for DFT test - Arrive 0700 to Same Day for DFT on Thursday, August 07 Reports moderate pain(expected at implant site), refractory to acetaminophen/ice - #20 hyrdomorphone Refill provided; zero refills Inpatient Provider Contact Information: Cardiac Electrophysiology [phone], option #3 Discharge Diagnoses (Hospital Problems) and Secondary Diagnoses (Chronic Problems): Active Hospital Problems Diagnosis HFrEF (heart failure with reduced ejection fraction) SQ ICD, [employer], single lead Resolved Hospital Problems No [...] for primary prevention subcutaneous ICD. Hospital Course: [employer] SQ ICD implanted without complication. Non-inducible [...] Data is abnormally low Treatments: Device Data: American Indian Policy Specialist Model # Serial # Generator [employer] [id number] Ventricular Lead [employer] 3501 [id number] Impedance (ohms) Shock (10J) 87 Programming: Rate [...] 1 capsule Refills: 0 naloxone 4 mg/actuation [place], Non-Aerosol Commonly known as: Narcan Once Refills: [...] incision. Make sure to use a cloth printer helper (such as a towel) in between the [...] if you have any personal concerns, contact [facility] Electrophysiology at [phone]. Do not attempt to readjust the Clozex?? [...] questions. The office scheduling phone number is [phone]. If you have any questions or concerns about this product, please call the device clinic at [phone]. General Instructions None Future Appointments and Orders Future Appointments and Orders Future Appointments Provider Department Dept Phone 07/20/2023 1:00 PM PRE ANESTHESIA, CONSULT Same Day at [facility] Arrive at: Home [phone] To view instructions for your video visit, click here, or visit this website: [email or web address] If you have not previously downloaded the [facility] patient portal software, [employer], or the In1001.com joe, please do so by clicking one of these links below or searching in your device's joe store. For all desktops/laptops; for Android devices; for Apple/InfoflowS devices FAQs: Join Video Visit button not connecting? - This may be due to pop-up blockers. - Click this link to see: How to Disable Pop-Up Block for myDH Video Visits Zoom asking for a meeting password? - Exit out of the Zoom program and try the link again 07/24/2023 9:30 AM Tila Elmore RN Cardiology at [facility] Arrive at: Recycling Assistant Area [phone] 10/13/2023 9:30 AM Tila Elmore RN Cardiology at [facility] Arrive at: Recycling Assistant Area [phone] Discharge References/Attachments None documented in this encounter Discharge Instructions * Patient Instructions* Hunter Mcclain PA - 07/14/2023 10:55 AM EDT FINAL ICD RECOMMENDATIONS: 1. Standard post implant discharge instructions (see below): 2. Medications as listed above. 3. You may use ice packs over the incision. Make sure to use a cloth printer helper (such as a towel) in between the [...] if you have any personal concerns, contact [facility] Electrophysiology at [phone]. Do not attempt to readjust the Clozex?? [...] questions. The office scheduling phone number is [phone]. If you have any questions or concerns about this product, please call the device clinic at [phone]. documented in this encounter Medications at Time [...] a day 03/12/2015 naloxone (Narcan) 4 mg/actuation [place], Non-Aerosol Once 03/10/2019 magnesium oxide (MAG-OX) 400 [...] Miguel RN - 07/15/2023 12:51 PM EDT [facility] Short Stay Unit Discharge Note All [...] failure with reduced ejection fraction) SQ ICD, [employer], single lead Resolved Hospital Problems No resolved problems to display. Interval History: 48 y.o. female with a history of non-ischemic cardiomyopathy with known TTN gene, HTN, DM2, syncope, EF 42%, admitted for primary prevention subcutaneous ICD. [employer] SQ ICD implanted without complication. Non-inducible [...] 199 mg/dL Pertinent Radiographic/Diagnostic Results: Device Data: American Indian Policy Specialist Model # Serial # Generator [employer] [id number] Ventricular Lead [employer] 3501 [id number] Impedance (ohms) Shock (10J) 87 Programming: Rate [...] 42%, admitted for primary prevention subcutaneous ICD. [employer] SQ ICD implanted without complication. Non-inducible for VT/VF. 10j shock impedance = 87 ohms. Plan: Device function is normal Stable for discharge to home Scheduled for DFT test - Arrive 0700 to Same Day for DFT on Thursday, August 07 Provider: ANNE Oneal EP Consult attending physician: Juan Taylor MD EP Consult positional pager #[phone](EPPR) EP Device interrogation positional pager # [phone] Associated attestation - Hero Taylor MD - [...] ~ 10 days. Hero Taylor MD, PhD, [facility] Cardiac Electrophysiology * Leelee Barone RN - 07/14/2023 11:10 AM EDT 1050: Jammie Gottlieb arrived from in a bed to PACU 1. Pt was attached to monitors, alarms set appropriately & audible. NSR on cardiac technologist, lungs are clear. Sternal & Flank sites [...] ARRAY, EPIDURAL performed by CARINE CHATTERJEE at [facility] MAIN OR PRO UNLISTED PROCEDURE, MUSCULOSKELETAL [...] completed. Hola Mahan MD Cardiac Electrophysiology Fellow [facility] Pager [phone] 07/14/2023 Addendum 48 y.o.woman with longstanding NICM, [...] visit, click here, or visit this website: [email or web address] If you have not previously downloaded the [facility] patient portal software, [employer], or the In1001.com joe, please do so by clicking one [...] AM (Arrive by 9:10 AM) Cardiology at [address] [address] Arrive at: Recycling Assistant Area 4A OCT 13 Office Visit with Tila Anand RN Thursday 9:30 AM (Arrive by 9:10 AM) Cardiology at [address] [address] Arrive at: Recycling Assistant Area 4A Transportation: family or friend will [...] 11:00 AM EST Appointment XRay at [address] [place] [address] 10/05/2024 1:10 PM [place] [address] Pricilla Finney MD [facility] [place] [address] 10/05/2024 1:10 PM [place] [address] rPicilla Finney MD [facility] [place] [address] 10/07/2024 10:00 AM EST Hospital Encounter Non[place] [address] Arrived documented as of this encounter Procedures [...] who have questions please contact the health cattle care worker that requested your imaging first. ? [...] patients who have questions please contactthe health cattle care worker that requested your imaging first. Tigre Whiteside MD IMG DX ORDERABLES * POCT Glucose (07/14/2023 10:55 AM EDT) [facility] Signature Glucose, POC 135 65 - 199 mg/dL [facility] Comment: Supplemental ranges: <140 mg/dL before meals <180 mg/dL all other times of the day Blood 07/14/2023 10:5 5 AM EDT 07/14/2023 10:55 AM EDT Tigre Whiteside MD POINT OF CARE TEST O RDERABLES [facility] [place] [address] * ELECTROPHYSIOLOGY PROCEDURE (07/14/2023 8:45 AM EDT) Anatomical Region Laterality Modality Other Narrative 07/14/2023 3:32 PM EDT Table formatting from the original result was not included. [facility] Electrophysiology Procedure Note Patient Name: Jammie Gottlieb Patient : 1975 Yard Conductor: Tigre Whiteside MD Fellow: Hola Mahan MD [...] the entire procedure. Lead and Generator Data: American Indian Policy Specialist Model # Serial # Generator [employer] A219 [id number] Ventricular Lead [employer] [id number] Data: Impedance (ohms) Shock (10J) 87 Programming: [...] defibrillation threshold testing (attempted) I was the whey department operator, present for the entire procedure and personally edited this note TIGRE WHITESIDE MD Tigre Whiteside MD EP PROCEDURE ORDERAB LES * (ABNORMAL) Basic Metabolic Panel (non-fasting) (07/14/2023 7:00 AM EDT) Glucose 161 65 - 199 mg/dL [facility] Comment:Diabetes: >=200 mg/d L plus symptoms Blood Urea Nitrogen 14 8 - 18 mg/dL [facility] Creatinine 0.44(L) 0.70 - 1.20 mg/dL [facility] Sodium 139 135 - 145 mmol/L [facility] Potassium 4.6 3.5 - 5.0 mmol/L [facility] Comment: Please note: ??Patients with WBC >100,000 may have falsely elevated Potassium levels. ??For accurate Potassium quantification in these patients send serum separator tube (gold top) for subsequent determinations. ??Contact the Clinical Chemistry Laboratory if there are any questions. Chloride 105 98 - 107 mmol/L [facility] Carbon Dioxide 25 22 - 31 mmol/L [facility] Anion Gap 9 5 - 15 mmol/L [facility] Calcium 8.9 8.5 - 10.5 mg/dL [facility] Est Glomerular Filtration Rate 119 >=60 mL/min/1. 73 m?? [facility] Comment: This patient's estimated [...] In Lab Tigre Whiteside MD CHEMISTRY ORDERABLES [facility] [place] [address] * EKG 12 Lead (07/14/2023 6:51 AM EDT) Ventricular rate 79 BPM MUSE SYSTEM Atrial Rate 79 BPM MUSE SYSTEM P-R Interval 180 ms MUSE SYSTEM QRS Duration 78 ms MUSE SYSTEM Q-T Interval 408 ms MUSE SYSTEM QTC Calculated (Bezet) 467 ms MUSE SYSTEM Calculated P [place] 2 degrees MUSE SYSTEM Calculated R [place] -14 degrees MUSE SYSTEM Calculated T [place] 16 degrees MUSE SYSTEM INTERPRETATION Normal sinus rhythm Septal infarct , age undetermined Poor R wave progression Abnormal ECG When compared with ECG of 02-JUL-2023 14:20, Septal infarct is now Present I personally reviewed the tracing and edited the fellows interpretation Confirmed by fellow Oscar Kidd ([id number]) on 07/14/2023 9:20:46 AM Confirmed by MD Sophie, [place] ([id number]) on 07/14/2023 5:28:26 PM MUSE SYSTEM 07/14/2023 6:51 AM EDT 07/14/2023 5:28 PM EDT Tonia Crystal MD ECG ORDERABLES MUSE SYSTEM * POCT Glucose (07/14/2023 6:37 AM EDT) Glucose, POC 156 65 - 199 mg/dL [facility] Comment: Supplemental ranges: <140 mg/dL before meals <180 mg/dL all other times of the day Blood 07/14/2023 6:37 AM EDT 07/14/2023 6:37 AM EDT Tigre Whiteside MD POINT OF CARE TEST O RDERABLES [facility] [address] documented in this encounter Visit Diagnoses Diagnosis [...] Day of Surgery (Day of Procedure), Routine 06 (Given - Provider: Nesha Vargas RN) aspirin [...] this AM) 802 (Given - Provider: Donna Miguel RN) DULoxetine [...] Miguel RN - Reason: Medication not available) 803 (Given - Provider: Donna Miguel RN) estradioL [...] dose on Thu07/14/23 at 1330, Until Discontinued 133 (Not Given - Provider: Donna Miguel RN [...] Barnett RN) 0805 (Given - Provider: Donna Miguel RN) metFORMIN XR (Glucophage XR) tablet 500 mg 500 mg, Oral, 2 TIMES DAILY, First dose on Thu07/14/23 at 1700, Until Discontinued, Routine 1700 (Not Given - Provider: Donna Miguel RN [...] Discontinued, Routine 1702 (Given - Provider: Donna Miguel RN) sacubitriL-valsartan (Entresto) 97-103 mg per tablet 1 tablet 1 tablet, Oral, 2 TIMES DAILY, First dose on Thu07/14/23 at 1330, Until Discontinued, Routine, Is this a continuation of home medication? Yes 1330 (Not Given - Provider: Donna Miguel RN - Reason: Patient/family refused)2022 (Given - Provider: Carmen Barnett RN) 0803 (Given - Provider: Donna Miguel RN) vancomycin (Vancocin) 1.5 gram in sodium [...] Barnett RN) 0732 (Given - Provider: Donna Miguel, CHARLY)1245 (Given - Provider: Donna Miguel RN) clonazePAM [...] Routine documented in this encounter Care Teams Mva Operator Relationship Specialty Start Date End Date Edie Ellis MD [facility] [address] [place] [address] PCP - General 10/15/10 documented as of this encounter
--- OUTSIDE RECORDS SUMMARY | 2024-08-15 16:59 | XMS_ITS | Encounter Summary ---
[place] [address] Care Team Providers Care Hot Plate Plywood Press Operator Name Role Phone Edie Ellis MD Primary Care Provider [phone] Reason for Visit * Reason Onset Date Comments Follow-up 05/08/2023 Entresto start B MP results Encounter Details Date Type Department Care Team ([facility] Contact Info) Description 05/08/2023 Telephone Cardiology at [address] [phone] Angélica Polo, RN Follow-up (Entresto start BMP [...] 10/05/2024 11:00 AM EST Appointment XRay at [address] [place] [address] 10/05/2024 1:10 PM [place] [address] Pricilla Finney MD [facility] [place] [address] 10/05/2024 1:10 PM [place] [address] Pricilla Finney MD [facility] DR NEUROLOGY DEPT [place], [place] [address] 10/07/2024 10:00 AM EST Hospital Encounter Non-[place] [address] Arrived documented as of this [...] filedocumented in this encounter Care Teams Hot Plate Plywood Press Operator Relationship Specialty Start Date End Date Edie Ellis MD [facility] MORALES GRANADOS [facility] [address] [place] [address] PCP - General 10/15/10 documented as of this encounter
--- OUTSIDE RECORDS SUMMARY | 2024-08-15 16:59 | XMS_ITS | Encounter Summary ---
Author Organization [facility] Address [facility] [place] [address] Care Team Providers Care Mechanical Detailer Name Role Phone Edie Ellis MD Primary Care Provider [phone] Encounter Details Date Type Department Care Team (Late st Contact Info) Description 07/20/2023 1:00 PM EDT TH Visit (TeleHealth) [place] [address] Social History Tobacco Use Types Packs/Day Years [...] 10/05/2024 11:00 AM EST Appointment XRay at [address] [place] [phone] 10/05/2024 1:10 PM [place] [phone] Pricilla Finney MD [facility] [place] [address] 10/05/2024 1:10 PM [place] [address] Pricilla Finney MD [facility] [place] [address] 10/07/2024 10:00 AM EST Hospital Encounter Non-Invasive [place] [address] Arrived documented as of this encounter Visit Diagnoses Not on filedocumented in this encounter Care Teams Mechanical Detailer Relationship Specialty Start Date End Date Edie Ellis MD [address] [place] [address] [address] [place] [address] PCP - General 10/15/10 documented as of this encounter
--- OUTSIDE RECORDS SUMMARY | 2024-08-15 16:59 | XMS_ITS | Encounter Summary ---
Author Organization [facility] Address [facility] [place] [address] Care Team Providers Care Bi Architect Name Role Phone Edie Ellis MD Primary Care Provider [phone] Reason for Visit * Reason Onset Date Comments Medication Refill 07/07/2023 Entresto 97-10 3 mg bid. Encounter Details Date Type Department Care Team (Late st Contact Info) Description 07/07/2023 Refill Cardiology at [address] [address] Kina Awad PA [facility] [place] [address] Medication Refill (Entresto 97-103 mg bid./) Social [...] 10/05/2024 11:00 AM EST Appointment XRay at [address] [place] [address] 10/05/2024 1:10 PM EST Appointment MRI at [place] [phone] Pricilla Finney MD [facility] [place] [address] 10/05/2024 1:10 PM [place] [phone] Pricilla Finney MD [facility] [place] [address] 10/07/2024 10:00 AM EST Hospital Encounter Non-Invasive Cardiology Lab [place] [phone] Arrived documented as of this encounter Visit Diagnoses Diagnosis HFrEF (heart failure with reduced ejection fraction) documented in this encounter Care Teams Bi Architect Relationship Specialty Start Date End Date Edie Ellis MD [address] [place] [address] PCP - General 10/15/10 documented as of this encounter
--- OUTSIDE RECORDS SUMMARY | 2024-08-15 16:59 | XMS_ITS | Encounter Summary ---
Author Organization [facility] Address [facility] [place] [address] Care Team Providers Care Manager Statistical Programming Name Role Phone Edie Ellis MD Primary Care Provider [phone] Encounter Details Date Type Department Care Team (Late st Contact Info) Description 04/17/2023 Refill Cardiology at [address] [phone] Kina Awad PA [facility] [place] [address] Social History Tobacco Use Types Packs/Day Years [...] 11:00 AM EST Appointment XRay at [address] [place] [address] 10/05/2024 1:10 PM [place] [address] Pricilla Finney MD [facility] [place] [address] 10/05/2024 1:10 PM [place] [phone] Pricilla Finney MD [facility] [place] [address] 10/07/2024 10:00 AM EST Hospital Encounter Non-Invasive [place] [address] Arrived documented as of this encounter Visit Diagnoses Not on filedocumented in this encounter Care Teams Manager Statistical Programming Relationship Specialty Start Date End Date Edie Ellis MD [facility] [address] [place] [address] PCP - General 10/15/10 documented as of this encounter
--- OUTSIDE RECORDS SUMMARY | 2024-08-15 16:59 | XMS_ITS | Encounter Summary ---
Author Organization [facility] Address [facility] [place] [address] Care Team Providers Care Payroll Coordinator Name Role Phone Edie Ellis MD Primary Care Provider [phone] Reason for Visit * Reason Onset Date Comments Medication Refill 06/03/2023 Entresto dose increase to 49-51 bid Encounter Details Date Type Department Care Team (Late st Contact Info) Description 06/03/2023 Refill Cardiology at [address] [place] [address] Kina Awad PA [facility] [place] [address] Medication Refill (Entresto dose increase to 49-51 [...] 11:00 AM EST Appointment XRay at [address] [place] [address] 10/05/2024 1:10 PM EST Appointment MRI at [place] [phone] Pricilla Finney MD [facility] [place] [address] 10/05/2024 1:10 PM EST Appointment MRI at [place] [phone] Pricilla Finney MD [facility] [place] [address] 10/07/2024 10:00 AM EST Hospital Encounter Non-Invasive Cardiology Lab [place] [phone] Arrived documented as of this encounter Visit Diagnoses Diagnosis HFrEF (heart failure with reduced ejection fraction) documented in this encounter Care Teams Payroll Coordinator Relationship Specialty Start Date End Date Edie Ellis MD [facility] [address] [place] [address] PCP - General 10/15/10 documented as of this encounter
--- OUTSIDE RECORDS SUMMARY | 2024-08-15 16:59 | XMS_ITS | Encounter Summary ---
Author Organization [facility] Address [facility] [place] [address] Care Team Providers Care Veneer Redrier Name Role Phone Edie Ellis MD Primary Care Provider Encounter Details Date Type Department Care Team (Late st Contact Info) Description 04/30/2023 Orders Only Cardiology at [address] [address] Kina Awad PA [facility] [place] [address] HFrEF (heart failure with reduced ejection fraction) [...] 10/05/2024 11:00 AM EST Appointment XRay at [address] [place] [address] 10/05/2024 1:10 PM [place] [address] Pricilla Finney MD [facility] [place] [address] 10/05/2024 1:10 PM [place] [phone] Pricilla Finney MD [facility] [place] [address] 10/07/2024 10:00 AM EST Hospital Encounter Non-[place] [address] Arrived documented as of this encounter Visit Diagnoses Diagnosis HFrEF (heart failure with reduced ejection fraction) documented in this encounter Care Teams Veneer Redrier Relationship Specialty Start Date End Date Edie Ellis MD [facility] [address] [place] [address] PCP - General 10/15/10 documented as of this encounter
--- OUTSIDE RECORDS SUMMARY | 2024-08-15 16:59 | XMS_ITS | Encounter Summary ---
Author Organization [facility] [place] [address] Care Team Providers Care Outdoor Advertising Leasing Agent Name Role Phone Edie Ellis MD Primary Care Provider [phone] Encounter Details Date Type Department Care Team (Late st Contact Info) Description 07/24/2023 9:30 AM EDT Office Visit Cardiology at [address] [address] Tila Elmore RN SQ ICD, [employer], single lead Social History Tobacco Use [...] Clinical Electrophysiology Device Service Note Jammie Gottlieb [id number] 07/24/2023 History: 48 y.o. female with a [...] will continue to utilize remote monitoring Tila Elomre RN Attending MD Pereyra 07/24/2023 documented in this encounter Plan of Treatment Upcoming Encounters Date Type Department Care Team (Late st Contact Info) Description 10/05/2024 11:00 AM EST Appointment XRay at [address] [place] [address] 10/05/2024 1:10 PM EST Appointment MRI at [place] [address] Pricilla Finney MD [facility] [place] [address] 10/05/2024 1:10 PM [place] [phone] Pricilla Finney MD [facility] [place] [address] 10/07/2024 10:00 AM EST Hospital Encounter Non-[place] [address] Arrived documented as of this encounter Visit Diagnoses Diagnosis SQ ICD, [place] [employer], single lead documented in this encounter Care Teams Outdoor Advertising Leasing Agent Relationship Specialty Start Date End Date Edie Ellis MD [facility] [address] [place] [address] PCP - General 10/15/10 documented as of this encounter
--- OUTSIDE RECORDS SUMMARY | 2024-08-15 16:59 | XMS_ITS | Encounter Summary ---
Author Organization [facility] [place] [address] Care Team Providers Care Funeral Home General Manager Name Role Phone Edie Ellis MD Primary Care Provider [phone] Encounter Details Date Type Department Care Team (Late st Contact Info) Description 07/30/2023 Telephone Cardiology at [address] [phone] Alexandria Cornell, RN Social History Tobacco Use [...] discharge. She went to [facility] in [facility] and was treated for infection. States they cleaned both incisions, applied a similar dressing, and prescribed Clindamycin 450 mg TID. Patient is calling to inquire on how long she needs to leave this dressing in place and wound care instructions after removing. Alexandria Cornell magnetic prospecting supervisor [facility] at [facility] [address] documented in this encounter Plan of Treatment Upcoming Encounters Date Type Department Care Team (Late st Contact Info) Description 10/05/2024 11:00 AM EST Appointment XRay at [address] [place] [phone] 10/05/2024 1:10 PM EST Appointment MRI at [place] [address] Pricilla Finney MD [facility] [place] [address] 10/05/2024 1:10 PM EST Appointment MRI at [place] [phone] Pricilla Finney MD [facility] [place] [address] 10/07/2024 10:00 AM EST Hospital Encounter Non-[place] [address] Arrived documented as of this encounter Visit Diagnoses Not on filedocumented in this encounter Care Teams Funeral Home General Manager Relationship Specialty Start Date End Date Edie Ellis MD [address] [place] [address] PCP - General 10/15/10 documented as of this encounter
[2024-08-15 17:00] LABS: Magnesium 1.8 mg/dL (1.8-2.4)
--- OUTSIDE RECORDS SUMMARY | 2024-08-15 17:00 | XMS_ITS | Encounter Summary ---
Author Organization [facility] Address [facility] [place] [address] Care Team Providers Care Speech/Language Therapist Name Role Phone Edie Ellis MD Primary Care Provider [phone] Encounter Details Date Type Department Care Team (Late st Contact Info) Description 07/07/2022 1:00 PM EDT - 07/07/2022 2:05 PM EDT Surgery [place] [address] Denisse Pelaez MD [facility] [place] [address] (MSURG) MUSCLE BIOPSY, DEEP Social History Tobacco [...] call Dr. Pelaez at our office at [phone] 8am-5pm (weekdays) or after hours call and ask to have the concrete pipe machine operator for Neurology paged. These instructions have been [...] a day 03/12/2015 naloxone (Narcan) 4 mg/actuation [place], Non-Aerosol Once 03/10/2019 magnesium oxide (MAG-OX) 400 [...] Pelaez MD - 07/07/2022 1:06 PM EDT [facility] [place] Patient Name: Jammie Gottlieb : [id number] MR#: [id number] Case Date: 07/07/2022 Surgeon: Surgeon(s) and Role: [...] 10/05/2024 11:00 AM EST Appointment XRay at [address] [place] [address] 10/05/2024 1:10 PM [place] [phone] Pricilla Finney MD [facility] [place] [address] 10/05/2024 1:10 PM [place] [address] Pricilla Finney MD [facility] [place] [address] 10/07/2024 10:00 AM EST Hospital Encounter Non-[place] [address] Arrived documented as of this encounter Procedures [...] PM EDT 07/07/2022 1:06 PM EDT Narrative [facility] - 07/07/2022 1:06 PM EDT Specimen requisition ordered. ??Separate Pathology report to follow Denisse Pelaez MD PATHOLOGY/CYTOLOGY O CHRISTA [facility] [place] [address] * Surgical Pathology Report (07/07/2022 12:35 PM EDT) Final Diagnosis [id number] ? Location: OR; ORMN; A The signing [...] MD Verified: ??07/18/2022 16:14 ??Pathologist Performed at: ??-[facility], [place], [place] SYNOPTIC none DISCUSSION Paraffin-embedded fragments of [...] a few detached adipose tissue fragments. Sections/Processing: Farm Mortgage Agent sections in 2 cassettes as follows: ?A1: ??Frozen in OCT for histochemistry. ?A2: ??Fixed in formalin for light microscopy. ??sns 07/18/2022 4:14 PM EDT [facility] MUSCLE SPECIMEN / Unknown 07/07/2022 12:35 PM EDT 07/07/2022 12:35 PM EDT Denisse Pelaez MD PATHOLOGY/CYTOLOGY O [place]STA [facility] [place] [address] documented in this encounter Visit Diagnoses Diagnosis [...] MD) documented in this encounter Care Teams Speech/Language Therapist Relationship Specialty Start Date End Date Edie Ellis MD [address] [place] [address] PCP - General 10/15/10 documented as of this encounter
--- OUTSIDE RECORDS SUMMARY | 2024-08-15 17:00 | XMS_ITS | Encounter Summary ---
Author Organization [facility] Address [facility] [place] [address] Care Team Providers Care Toll Repairer Central Office Name Role Phone Edie Ellis MD Primary Care Provider [phone] Reason for Visit * Diagnostic Test (Routine) - Closed Specialty Diagnoses / Procedures Referred By Geraldine olmedo Referred To Contact Diagnoses HFrEF (heart failure with reduced ejection fraction) Other chest pain Procedures Echocardiogram Transthoracic Echocardiogram Stress (Treadmill) Kina Choi PA [facility] [place] [address] [facility] [place] [address] Referral ID Status Reason Start Date Expiration Date V isits Requested Visits Authorized [id number] Closed Specialty Service Requested 03/12/2023 03/11/2024 1 1 Encounter Details Date Type Department Care Team (Latest Contact Info) Description 03/23/2023 9:00 AM EDT - 03/23/2023 11:59 PM EDT Hospital Encounter Non-[place] [address] Loyda Mendoza MD [facility] [place] [address] HFrEF (heart failure with reduced [...] a day 03/12/2015 naloxone (Narcan) 4 mg/actuation [place], Non-Aerosol Once 03/10/2019 magnesium oxide (MAG-OX) 400 [...] 11:00 AM EST Appointment XRay at [address] [place] [address] 10/05/2024 1:10 PM [place] [address] Pricilla Finney MD [facility] [place] [address] 10/05/2024 1:10 PM [place] [address] Pricilla Finney MD [facility] [place] [address] 10/07/2024 10:00 AM EST Hospital Encounter Non-[place] [address] Arrived documented as of this encounter Procedures Procedure Name Priority Date/Time Associated Diagnosis Comments ECHO COMPLETE W CONTRAST Routine 03/23/2023 10:09 AM EDT HFrEF (heart failure with reduced ejection fraction) Other chest pain documented in this encounter Results * ECHO COMPLETE W CONTRAST (03/23/2023 10:09 AM EDT) Pathologist [facility] EF 42 HEARTLAB SYSTEM Anatomical Region Laterality Modality Cardiac Other 03/23/2023 9:28 AM EDT Narrative 03/23/2023 10:21 AM EDT ? Echocardiogram Report Name: RAMY GOTTLIEB ?Study Date: 03/23/2023 09:28 AM ? Patient Location: : 1975 ? Height: 163 cm ? Account: [id number] Age: 47 yrs ? Weight: 99 kg Gender: Female ?BSA: 2.0 m2 Ordering Physician: LOYDA MENDOZA Referring Physician: KINA CHOI Performed By: Kate Arellano RDCS Reason For Study: HFrEF (heart failure with reduced ejection fraction), Other chest pain Exam Location: [facility]. Interpretation Summary LV mild global hypokinesis. The left ventricular ejection fraction is 42% by Mobley's biplane. Right ventricular function is probably normal. No significant valvular disease noted on this study. Compared with the prior TTE of 01/02/2022, LV systolic function has declined (prior EF 52%). Of note, the patient was tachycardiac at baseline (HR 105 bpm). Stress testing was canceled. Procedure Complete-[id number]. Image enhancement Optison was used for left [...] Saleh MD - 03/23/2023 Echocardiogram Report Name: CECILIORAMY ASHFORD Sherice Study Date: 309:28 AM Patient Location: : 1975 Height: 163 cm Account: [id number] Age: 47 yrs Weight: 99 kg Gender: Female BSA: 2.0 m2 Ordering Physician: LOYDA MENDOZA Referring Physician: KINA CHOI Performed By: Kate Arellano RDCS Reason For Study: HFrEF (heart failure with reduced ejection fraction),Other chest pain Exam Location: [facility]. Interpretation Summary LV mild global hypokinesis. The left ventricular ejection fraction is 42%by Mobley's biplane. Right ventricular function is probably normal. No significant valvular disease noted on this study. Compared with the prior TTE of 01/02/2022, LV systolic function hasdeclined (prior EF 52%). Of note, the patient was tachycardiac at baseline (HR 105 bpm). Stresstesting was canceled. Procedure Complete-[id number]. Image enhancement Optison was used for left [...] mLs documented in this encounter Care Teams Toll Repairer Central Office Relationship Specialty Start Date End Date Edie Ellis MD [facility] [address] [place] [address] PCP - General 10/15/10 documented as of this encounter
--- OUTSIDE RECORDS SUMMARY | 2024-08-15 17:00 | XMS_ITS | Encounter Summary ---
Author Organization [facility] [place] [address] Care Team Providers Care Landscape Architect Name Role Phone Edie Ellis MD Primary Care Provider [phone] Encounter Details Date Type Department Care Team (Late st Contact Info) Description 11/11/2021 Telephone Medical Genetics at [address] [phone] [place] [facility] [place] [address] Social History Tobacco Use Types Packs/Day Years [...] the BC protections do not extendto life, group home care, or disability insurance policies. 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 The TTN gene is associated with autosomal dominant dilated cardiomyopathy (DCM) (MedGen UID: 2880).Additionally, the TTN gene is associated with a diverse group of disorders affecting skeletal muscles, including autosomal dominant tibial muscular dystrophy (TMD) (MedGen UID: 083069) and autosomal recessive limb-girdle musculardystrophy type 2J (LGMD2J) (MedGen UID: 766266), autosomal recessive centronuclear myopathy (CNM) (PMID: 89464498), and autosomal dominant hereditary myopathy with early respiratory failure (HMERF)(MedGen UID: 784666). Additional TTN-related conditions have also been reported (OMIM: 785777). This result is consistent with a predisposition to, or diagnosis of, autosomal dominant TTN-relatedconditions. TTN is associated with a clinically heterogeneous group of disorders, collectively known as the titinopathies, which can have distinct and/or overlapping features (PMID: 62254623, 91245423, 15992664). Correlation with a particular condition should include a review of the Variant Details section of the report below. Pathogenic mzbs-rl-ocnmfsrd variants in the A-band are associated with an increased risk of autosomal dominant DCM, although associations with other types of cardiomyopathy have been suggested (PMID: 06874515, 99609731). DCM is defined by left ventricular dilation and systolic dysfunction. Symptoms include palpitations, dizziness, syncope, chest pain, shortness of breath, heart failure and in some cases sudden cardiac arrest/ (PMID: 91537656, 21963822). For more information about diagnosis and management of dilated cardiomyopathy, please visit [employer]'s website at [email or web address]. Some pathogenic missense variants in exon 343 ofthe A band are only known to be associated with HMERF. HMERF is an early adult-onset disorder characterized by proximal and distal skeletal muscle weakness of the upper and lower extremities and respiratory insufficiency (PMID: 64200227, 55577318). Muscle histopathology frequentlyidentifies inclusion bodies and rimmed vacuoles (PMID: 03362478). Disease progression often includes loss of the ability to walk and the need for permanent ventilatory support relatively early in life (PMID: 57235066). Clinical, MRI, and histopathology similarities exist between HMERF and myofibrillar myopathies (PMID: 58236322). Pathogenic variants in the A-band may also be associated with autosomal recessive neuromusculardisorders, including centronuclear myopathy and limb-girdle muscular dystrophy (PMID: 89789279, 45537116). Biological relatives have a chance of being at risk for autosomal dominant TTN- related conditions and have a chance of being carriers for autosomal recessive TTN-related conditions. Those at risk should consider testing. A Variant of Uncertain Significance, c.1392G>C (p.Hcn894Ste), was identified in GAA. The GAA gene is associated with autosomal recessive Pompe disease, also known as glycogen storage disease type II (GSDII) ([facility] UID: 5340).Not all variants present in [...] Variant Testing Programs can be found at [email or web address]://www.[employer]/family. 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 While this is not anticipated to result in nonsense mediated decay, it is expected to create a truncated TTN protein. This variant is not present in population databases ([employer] no frequency). This premature translational stop signal has been observed in individual(s) with dilated cardiomyopathy (PMID: 38799721). This variant is also known as c.20688D>T (p.Kbv47797clvw). ClinVar contains an entry for this variant (Variation ID: [id number]). Algorithms developed to predict the effect of sequence changes on RNA splicing suggest that this variant may create or strengthen a splice site. This variant is located in the A band of TTN (PMID: 93073669). Truncating variants in this region are significantly overrepresented in patients affected with dilated cardiomyopathy (PMID: 31981319). Truncating variants in this region have alsobeen reported in individuals affected with autosomal recessive centronuclear myopathy (PMID: 54665063). In summary, the currently available evidence indicates that the variant is pathogenic, but additional data are needed to prove that conclusively. Therefore, this variant has been classified as Likely Pathogenic. 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 This variant is present in population databases ([id number], gnomAD 0.01%). This missense change has been observed in individual(s) with a positive screening result for GAA-related disease (PMID: 99674813). ClinVar contains an entry for this variant (Variation ID: [id number]). Algorithms developed to predict the effect of [...] 10/05/2024 11:00 AM EST Appointment XRay at [address] [place] [address] 10/05/2024 1:10 PM EST Appointment MRI at [address] Pricilla Finney MD [facility] [place] [address] 10/05/2024 1:10 PM EST Appointment MRI at [place] [phone] Pricilla Finney MD [facility] [place] [address] 10/07/2024 10:00 AM EST Hospital Encounter Non-Invasive Cardiology Lab [address]1000 Arrived documented as of this encounter Visit Diagnoses Not on filedocumented in this encounter Care Teams Landscape Architect Relationship Specialty Start Date End Date Edie Ellis MD [address] [place] [address] PCP - General 10/15/10 documented as of this encounter
--- OUTSIDE RECORDS SUMMARY | 2024-08-15 17:00 | XMS_ITS | Encounter Summary ---
Author Organization [facility] Address [facility] [place] [address] Care Team Providers Care Network Designer Name Role Phone Edie Ellis MD Primary Care Provider [phone] Encounter Details Date Type Department Care Team (Late st Contact Info) Description 06/03/2022 Notes Only Care Management [facility] [place] [address] Tila Berry Social History Tobacco Use Types [...] 10/05/2024 11:00 AM EST Appointment XRay at [address] [place] [address] 10/05/2024 1:10 PM [place] [address] Pricilla Finney MD [facility] [place] [address] 10/05/2024 1:10 PM [place] [address] Pricilla Finney MD [facility] [place] [address] 10/07/2024 10:00 AM EST Hospital Encounter Non-Invasive [place] [address] Arrived documented as of this encounter Visit Diagnoses Not on filedocumented in this encounter Care Teams Network Designer Relationship Specialty Start Date End Date Edie Ellis MD [address] [place] [address] PCP - General 10/15/10 documented as of this encounter
--- OUTSIDE RECORDS SUMMARY | 2024-08-15 17:00 | XMS_ITS | Encounter Summary ---
Author Organization [facility] Address [facility] [place] [address] Care Team Providers Care Window Unit Air Conditioning Mechanic Name Role Phone Edie Ellis MD Primary Care Provider [phone] Encounter Details Date Type Department Care Team (Latest Contact Info) Description 03/12/2023 10:26 AM EDT - 03/12/2023 11:59 PM EDT Hospital Encounter XRay at [address] [place] [address] Loyda Barrios MD [facility] [place] [address] Community acquired pneumonia, unspecified laterality Discharge Disposition: [...] a day 03/12/2015 naloxone (Narcan) 4 mg/actuation [place], Non-Aerosol Once 03/10/2019 magnesium oxide (MAG-OX) 400 [...] 10/05/2024 11:00 AM EST Appointment XRay at [address] [place] [address] 10/05/2024 1:10 PM [place] [address] Pricilla Finney MD [facility] [place] [address] 10/05/2024 1:10 [place] [address] Pricilla Finney MD [facility] [place] [address] 10/07/2024 10:00 AM EST Hospital Encounter Non-Invasive Cardiology [place] [address] Arrived documented as of this encounter Procedures [...] who have questions please contact the health home visit field care manager that requested your imaging first. ? Electronically signed by: Felisa Carlisle MD, [facility] ([phone]), at 03/12/2023 11:56 AM Narrative 03/12/2023 11:56 [...] patients who have questions please contactthe health home visit field care manager that requested your imaging first. Electronically signed by: Felisa Carlisle MD, [facility]([phone]), at 03/12/2023 11:56 AM Loyda Barrios MD IMG DX ORDERABLES documented in this encounter Visit Diagnoses Diagnosis Community acquired pneumonia, unspecified laterality documented in this encounter Care Teams Window Unit Air Conditioning Mechanic Relationship Specialty Start Date End Date Edie Ellis MD [address] [place] [address] PCP - General 10/15/10 documented as of this encounter
--- OUTSIDE RECORDS SUMMARY | 2024-08-15 17:00 | XMS_ITS | Encounter Summary ---
Author Organization [facility] [place] [address] Care Team Providers Care Roustabout Name Role Phone Edie Ellis MD Primary Care Provider [phone] Encounter Details Date Type Department Care Team (Late st Contact Info) Description 04/08/2022 Ancillary Procedure Radiology at [facility] [address] [place] [address] Parker Mederos MD [address] [place] [address] Social History Tobacco Use Types Packs/Day Years [...] 10/05/2024 11:00 AM EST Appointment XRay at [address] [place] [address] 10/05/2024 1:10 PM EST Appointment MRI at [facility] [place] [address] Pricilla Finney MD [facility] [place] [address] 10/05/2024 1:10 PM [place] [address] Pricilla Finney MD [facility] [place] [place] [address] 10/07/2024 10:00 AM EST Hospital Encounter Non[place] [address] Arrived documented as of this encounter Procedures Procedure Name Priority Date/Time Associated Diagnosis Comments FILM LIBRARY STORAGE ONLY MR SPINE Routine 04/08/2022 12:00 AM EDT documented in this encounter Results * Film Library- Storage Only MR Spine (04/08/2022 12:00 AM EDT) Narrative [facility] - 04/11/2022 5:14 PM EDT This exam is auto-finalizing. It's purpose is for storage only. Parker Mederos MD IMG FILM LIBRARY ORD ERABLES [place], [place] documented in this encounter Visit Diagnoses Not on filedocumented in this encounter Care Teams Roustabout Relationship Specialty Start Date End Date Edie Ellis MD [facility] [address] [place] [address] PCP - General 10/15/10 documented as of this encounter
--- OUTSIDE RECORDS SUMMARY | 2024-08-15 17:00 | XMS_ITS | Encounter Summary ---
Author Organization [facility] Address [facility] [place] [address] Care Team Providers Care Final Inspector Truck Trailer Name Role Phone Edie Ellis MD Primary Care Provider [phone] Reason for Referral * Diagnostic Test (Routine) - Closed Specialty Diagnoses / Procedures Referred By Contac t Referred To Contact Cardiology Diagnoses HFrEF (heart failure with reduced ejection fraction) Pulmonary hypertension Procedures Echocardiogram Transthoracic([facility]) Kina Awad PA [facility] [place] [address] [facility] [place] [address] Referral ID Status Reason Start Date Expiration Date V isits Requested Visits Authorized [id number] Closed Specialty Service Requested 09/09/2021 09/09/2022 1 1 Reason for Visit * Diagnostic Test (Routine) - Closed Specialty Diagnoses / Procedures Referred By Contac t Referred To Contact Cardiology Diagnoses HFrEF (heart failure with reduced ejection fraction) Pulmonary hypertension Procedures Echocardiogram Transthoracic([facility]) Kina Awad PA [facility] [place] [address] [facility] [place] [address] Referral ID Status Reason Start Date Expiration Date V isits Requested Visits Authorized [id number] Closed Specialty Service Requested 09/09/2021 09/09/2022 1 1 Encounter Details Date Type Department Care Team (Latest Contact Info) Description 01/02/2022 9:28 AM EST - 01/02/2022 10:47 AM EST Hospital Encounter Non-Invasive Cardiology Lab [facility] [place] [address] Alla Nash MD [facility] [place] [address] HFrEF (heart failure with reduced ejection fraction); [...] a day 03/12/2015 naloxone (Narcan) 4 mg/actuation [place], Non-Aerosol Once 03/10/2019 magnesium oxide (MAG-OX) 400 [...] 11:00 AM EST Appointment XRay at [address] [place] [address] 10/05/2024 1:10 PM [place] [address] Pricilla Finney MD [facility] [place] [address] 10/05/2024 1:10 PM [place] [address] Pricilla Finney MD [facility] [place] [address] 10/07/2024 10:00 AM EST Hospital Encounter Non-Invasive [place] [address] Arrived documented as of this encounter Procedures [...] Smiley ? (Age): 1975(46y) Med Rec#: ? [id number] ?Sex: ?F ? Site Loc: ? [facility] ?Ht / Wt: ??163(cm)/94(kg) Pt. Loc: ?Echo Lab ?BSA: ?1.99 Study Date: ?? 01/02/2022 ?Pt. Type: Outpatient Tape: ? Referring: PRECIOUS Reading: Luke Luevano ??([id number]) Rn Labor Delivery: Wil Cuellar RDCS, FASE Diagnosis: *Cardiomyopathy, unspecified [...] 01/02/2022 10:31:41 Images reviewed and interpretation verified [facility] Cardiac Ultrasound Laboratory Procedure Note Luke Luevano MD - 01/02/2022 Procedure: Transthoracic Echocardiogram Patient: CARSON METZGER(Age): 1975(46y) Med Rec#: [id number] Sex: F Site Loc: [facility] Ht / Wt: 163(cm)/94(kg) Pt. Loc: Echo Lab BSA: 1.99 Study Date: 01/02/2022 Pt. Type: Outpatient Tape: Referring: PRECIOUS Reading: Luke Luevano ([id number]) Rn Labor Delivery: Wil Cuellar RDCS, FASE Diagnosis: *Cardiomyopathy, unspecified [...] 01/02/2022 10:31:41 Images reviewed and interpretation verified [facility] Cardiac Ultrasound Laboratory Alla Richardson MD ECHO ORDERAB LES documented in this encounter Visit Diagnoses Diagnosis HFrEF (heart failure with reduced ejection fraction) Pulmonary hypertension Other chronic pulmonary heart diseases documented in this encounter Care Teams Final Inspector Truck Trailer Relationship Specialty Start Date End Date Edie Ellis MD [address] [place] [address] PCP - General 11/23/10 documented as of this encounter
--- OUTSIDE RECORDS SUMMARY | 2024-08-15 17:00 | XMS_ITS | Encounter Summary ---
Author Organization [facility] Address [facility] [place] [address] Care Team Providers Care Mud Trucker Name Role Phone Edie Ellis MD Primary Care Provider [phone] Encounter Details Date Type Department Care Team (Late st Contact Info) Description 03/12/2023 9:00 AM EDT Office Visit Cardiology at [address] [place] [address] [address] Kina Awad PA [facility] [place] [address] HFrEF (heart failure with reduced ejection fraction); [...] from the original note were not included. [facility] Section of Advanced Heart Failure Cardiology [facility] [place] [address] OUTPATIENT VISIT DATE: 06/09/21 OUTPATIENT VISIT TYPE: [...] Last syncopal event Aug 2020, admitted to [facility]. Loss of urine. Placed on [...] she states she feels like she can't chart picker her arms or move her neck well. This used to present as aches and pains and LBP with some joint pain. More recently, c/o muscle weakness. 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 No obvious EMG changes or elevation in CK and had a negative muscle biopsy. Discussed today: Admitted to [facility] in August, transferred to [place]. PNA, required intubation. Since that time, hashad [...] Clinical summary ?? A Likely Pathogenic variant, [id number] ([id number]*), was identified in TTN. The TTN gene is associated with autosomal dominant dilated cardiomyopathy (DCM) (MedGen UID: 2880).Additionally, the TTN gene is associated with a diverse group of disorders affecting skeletal muscles, including autosomal dominant tibial muscular dystrophy (TMD) (MedGen UID: 369987) and autosomal recessive limb- girdle muscular dystrophy type 2J (LGMD2J) (MedGen UID: 013184), autosomal recessive centronuclear myopathy (CNM) (PMID: 07743761), and autosomal dominant hereditary myopathy with earlyrespiratory failure (HMERF)(MedGen UID: 182078). Additional TTN-related conditions have also been reported (OMIM: 220551).This result is consistent with a predisposition to, or diagnosis of, autosomal dominant TTN-related conditions. TTN is associated with a clinically heterogeneous group of disorders, collectively known as the titinopathies, which can have distinct and/or overlapping features (PMID: 96389760, 70103309, 56846861). Correlation with a particular condition should include a review of the Variant. Details section of the report below. Pathogenic nitl-dp-fkmydavl variants in the A-band are associated with an increased risk of autosomal dominant DCM, although associations with other types of cardiomyopathy have been suggested (PMID: 23700609, 18928391). DCM is defined by left ventricular dilation and systolic dysfunction. Symptoms include palpitations, dizziness, syncope, chestpain, shortness of breath, heart failure and in some cases sudden cardiac arrest/ (PMID: 43638011, 21678918). For more information about diagnosis and management of dilated cardiomyopathy, please visit [employer]'s website at [email or web address].[email or web address]-[email or web address]. Some pathogenic missense variants in exon 343 ofthe A band are only known to be associated with HMERF. HMERF is an early adult-onsetdisorder characterized by proximal and distal skeletal muscle weakness of the upper and lower extremities and respiratory insufficiency (PMID: 21207133, 41750383). Muscle histopathology frequentlyiden tifies inclusion bodies and rimmed vacuoles (PMID: 74949029). Disease progression often includes loss of the ability to walk and the need for permanent ventilatory support relatively early in life (PMID: 75036118). Clinical, MRI, and histopathology similarities exist between HMERF and myofibrillar myopathies (PMID: 95691524). Pathogenic variants in the A-band may also be associated with autosomalrecessive neuromusculardisorders, including centronuclear myopathy and limb-girdle muscular dystrophy (PMID: 85492337, 67951660). Biological relatives have a chance of being [...] Lasix 2/2 intravasculation volume depletion ICD or PLASTIC INJECTION MOLD MAKER-D if indicated Not indicated with LVEF >35% [...] 11:00 AM EST Appointment XRay at [address] [place] [address] 10/05/2024 1:10 PM [place] [address] Pricilla Finney MD [facility] [place] [place] [address] 10/05/2024 1:10 PM [place] [address] Pricilla Finney MD [facility] [place] [address] 10/07/2024 10:00 AM EST Hospital Encounter Non[place] [address] Arrived documented as of this encounter Results [...] who have questions please contact the health health care sanitary technician that requested your imaging first. ? Electronically signed by: Felisa Carlisle MD, [facility] ([phone]), at 03/12/2023 11:56 AM Narrative 03/12/2023 11:56 [...] patients who have questions please contactthe health health care sanitary technician that requested your imaging first. Loyda Barrios MD IMG DX ORDERABLES * pro-Brain Natriuretic Peptide (03/12/2023 8:10 AM EDT) NT-proBNP 49 <=124 pg/mL [facility] Blood 03/12/2023 8:10 AM EDT 03/12/2023 8:19 AM EDT Narrative Resulting Agency Comment Spec In Lab Loyda Barrios MD CHEMISTRY ORDERABL ES [facility] [place] [address] * (ABNORMAL) Comprehensive metabolic panel (non-fasting) (03/12/2023 8:10 AM EDT) Glucose 193 65 - 199 mg/dL [facility] Comment:Diabetes: >=200 mg/d L plus symptoms Blood Urea Nitrogen 10 8 - 18 mg/dL [facility] Creatinine 0.53(L) 0.70 - 1.20 mg/dL [facility] Sodium 137 135 - 145 mmol/L [facility] Potassium 3.9 3.5 - 5.0 mmol/L [facility] Comment: Please note: ??Patients with WBC >100,000 may have falsely elevated Potassium levels. ??For accurate Potassium quantification in these patients send serum separator tube (gold top) for subsequent determinations. ??Contact the Clinical Chemistry Laboratory if there are any questions. Chloride 99 98 - 107 mmol/L [facility] Carbon Dioxide 26 22 - 31 mmol/L [facility] Anion Gap 12 5 - 15 mmol/L [facility] Calcium 9.2 8.5 - 10.5 mg/dL [facility] Protein, Total 6.7 6.1 - 8.0 g/dL [facility] Albumin 4.0 3.2 - 5.2 g/dL [facility] Aspartate Aminotransferase 22 0 - 30 unit/L [facility] Alanine Aminotransferase 16 0 - 30 unit/L [facility] Alkaline Phosphatase 59 35 - 105 unit/L [facility] Bilirubin, Total 0.4 0.2 - 1.3 mg/dL [facility] Est Glomerular Filtration Rate 115 >=60 mL/min/1. 73 m?? [facility] Comment: This patient's estimated GFR [...] MD CHEMISTRY ORDERABL ES Performing Organization Address City/State/[facility] Co de Phone Number [facility] [place] [address] * Lipid Panel (Reflex Direct LDL) (03/12/2023 8:10 AM EDT) Pathologist [facility] Cholesterol, Total 124 mg/dL [facility] Comment: Lower Risk: <200 mg/dL Average Risk: 200-239 mg/dL Higher Risk: >na=363 mg/dL Triglyceride 609 mg/dL [facility] Comment: Average Risk/Lower Risk: <150 mg/dL Borderline High Risk: 150-199 mg/dL High Risk: 200-499 mg/dL Very High Risk: >vq=590 mg/dL HDL Cholesterol 27 mg/dL [facility] Comment: Males: ?? Higher Risk: <40 mg/dL Females: ?? Higher Risk: <50 mg/dL LDL Cholesterol Not Calculated [facility] Comment: Calculated LDL value is not valid for triglycerides greater than 400 mg/dl. Lowest Risk: <100 mg/dL Lower Risk: 100-129 mg/dL Borderline High Risk: 130-159 mg/dL High Risk: 160-189 mg/dL Very High Risk: >jx=155 mg/dL Cholesterol/HDL Ratio 4.6 ratio [facility] Lipid Interpretation See Note [facility] Comment: Lipid management should be guided by a patient? s ASCVD risk, goals and preferences. ACC/AHA Guidelines recommend high intensity statin if clinical ASCVD or LDL greater than or equal to 190 mg/dL. http://SCADA Access.com/WFC-EHZ-Pgjedjgev Adults aged 40-75 with LDL 70-189 mg/dL should have their 10 year ASCVD risk estimated with the ACC/AHA ASCVD risk software installation engineer http://tools.acc.org/WLNDB-Ytos-Dsplyoike/ Statin should be discussed if risk greater [...] Lab Loyda Barrios MD CHEMISTRY ORDERABL ES [facility] [place] [address] documented in this encounter Visit Diagnoses Diagnosis HFrEF (heart failure with reduced ejection fraction) Community acquired pneumonia, unspecified laterality Other chest pain Community acquired pneumonia, unspecified laterality documented in this encounter Care Teams Mud Trucker Relationship Specialty Start Date End Date Edie Ellis MD [address] [place] [address] PCP - General 10/15/10 documented as of this encounter
--- OUTSIDE RECORDS SUMMARY | 2024-08-15 17:00 | XMS_ITS | Encounter Summary ---
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 Muscle weakness Kina Awad PA [facility] [place] [place] [address] [facility] [address] [place] [address] Referral ID Status Reason Start Date Expiration Date V isits Requested Visits Authorized [id number] Closed Consult, Test & Treat 01/02/2022 01/02/2023 1 1 Encounter Details Date Type Department Care Team (Late st Contact Info) Description 06/03/2022 8:30 AM EDT Office [place] [address] Kieran Harkins MD [facility] [place] [address] Muscular dystrophy Social History Tobacco Use [...] 8:30 AM EDT NEUROLOGY CLINIC [facility] [place] [address] 06/03/2022 Patient name: Jammie Gottlieb Date of : 1975 Referring provider: Kina Awad PA [facility] [place] [address] HISTORY REASON FOR REFERRAL/CHIEF COMPLAINT: TTN gene [...] naratriptan. She had previously seen Neurology at 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 [...] ARRAY, EPIDURAL performed by CARINE CHATTERJEE at [facility] MAIN OR ??? PRO UNLISTED PROCEDURE, [...] a day ??? naloxone (Narcan) 4 mg/actuation [place], Non-Aerosol Once ??? nicotine (NICODERM CQ) 7 [...] found for: CRP B12No results found for: GHQCOPAS85 CK Lab Results Component Value Date CK [...] 60 06/17/2021 SHAHAB 65No results found for: FEW95OS ANTI GM1,ANTI SGPG, MAG@RESUFAST (MAGAUTOAB,SGPG,MAGWB,GM1AB)@ HEAVY METAL [...] ANNA1, ANNA2, ANNA3, AGNA1, PCA1, PCA2, PCATYPETR, AMPHIPHYSIN,XFTP6RNF, STRIATMSCLAB, CACHABPQTYPE, CACHABNTYPE, ACHRBINDAB, NEUROKCHAB, NMDARECEPTOR, RUA22DA THROMBOSIS HOMEOCYSTEINENo results found for: HOMOCYSTEINE THROMBOSIS PANELNo results found for: ACAIGM, A2EKADHLOKI FACTOR V LEIDEN No components found for: [...] Will arrange visits and follow up with [facility] clinic if muscle biopsy findings are positive. ??? Physical therapy recommended for strengthening. ??? Follow ups based on above. Kieran Harkins MD Department of Neurology [facility] documented in this encounter Plan of Treatment Upcoming Encounters Date Type Department Care Team (Late st Contact Info) Description 10/05/2024 11:00 AM EST Appointment XRay at [address] [place] [address] 10/05/2024 1:10 PM [place] [address] Pricilla Finney MD [facility] [place] [address] 10/05/2024 1:10 PM [place] [address] Pricilla Finney MD [facility] [place] [address] 10/07/2024 10:00 AM EST Hospital Encounter Non-[place]vasive [place] [address] Arrived documented as of this encounter Procedures Procedure Name Priority Date/Time Associated Diagnosis Comments EMG WITH F-WAVE Routine 06/03/2022 documented in this encounter Results * EMG WITH F-WAVE (06/03/2022) Historical Provider NEUROLOGY ORDERAB LES documented in this encounter Visit Diagnoses Diagnosis Muscular dystrophy Hereditary progressive muscular dystrophy documented in this encounter Care Teams Bus And Rail Operator Relationship Specialty Start Date End Date Edie Ellis MD [address] [place] [address] PCP - General 10/15/10 documented as of this encounter
--- OUTSIDE RECORDS SUMMARY | 2024-08-15 17:00 | XMS_ITS | Encounter Summary ---
Author Organization [facility] Address [facility] [place] [address] Care Team Providers Care Market Research Manager Name Role Phone Edie Ellis MD Primary Care Provider [phone] Encounter Details Date Type Department Care Team (Late st Contact Info) Description 09/12/2021 Orders Only Cardiology at [address] [address] Kina Awad PA [facility] [place] [address] Pulmonary hypertension Social History Tobacco Use Types [...] 10/05/2024 11:00 AM EST Appointment XRay at [address] [place] [address] 10/05/2024 1:10 PM EST [place] [address] Pricilla Finney MD [facility] [place] [address] 10/05/2024 1:10 PM EST [place] [address] Pricilla Finney MD [facility] [place] [address] 10/07/2024 10:00 AM EST Hospital Encounter Non-[place] [address] Arrived documented as of this [...] / FVC LLN 70 % COMPAS PFT UPA96-00 Actual Pre-BD 3.54 L/s COMPAS PFT VRR48-20 Pre-BD % of Predicted 122 % COMPAS PFT EUZ95-77 Predicted 2.90 L/s COMPAS PFT TPW41-00 Pre-BD Z-Score 0.73 COMPAS PFT DLCO Hb [...] diseases documented in this encounter Care Teams Market Research Manager Relationship Specialty Start Date End Date Edie Ellis MD [address] [place] [address] PCP - General 10/15/10 documented as of this encounter
--- OUTSIDE RECORDS SUMMARY | 2024-08-15 17:00 | XMS_ITS | Encounter Summary ---
Author Organization [place] [address] Care Team Providers Care Sewer Builder Name Role Phone Edie Ellis MD Primary Care Provider [phone] Encounter Details Date Type Department Care Team (Late st Contact Info) Description 01/23/2023 12:05 AM EST Ancillary Procedure Radiology Library at [place] [address] Edie Ellis MD [facility] MORALES SCH[address]Z [address] [place], [place] [id number] Social History Tobacco Use Types Packs/Day Years [...] 10/05/2024 11:00 AM EST Appointment XRay at [address] [place] [address] 10/05/2024 1:10 PM EST Appointment MRI at [facility] [place] [address] Pricilla Finney MD [facility] [place] [address] 10/05/2024 1:10 PM [place] [address] Pricilla Finney MD [facility] [place] [address] 10/07/2024 10:00 AM EST Hospital Encounter Non-[place] [address] Arrived documented as of this encounter Procedures Procedure Name Priority Date/Time Associated Diagnosis Comments FILM LIBRARY STORAGE ONLY MR SHOULDER Routine 01/23/2023 12:05 AM EST documented in this encounter Results * Film Library- Storage Only MR Shoulder (01/23/2023 12:05 AM EST) Narrative [facility] - 01/25/2023 8:57 PM EST This exam is auto-finalizing. It's purpose is for storage only. Edie Ellis MD IMG FILM LIBRARY ORD ERABLES [place], [place] documented in this encounter Visit Diagnoses Not on filedocumented in this encounter Care Teams Sewer Builder Relationship Specialty Start Date End Date Edie Ellis MD [facility] M[address] [place] [address] PCP - General 10/15/10 documented as of this encounter
--- OUTSIDE RECORDS SUMMARY | 2024-08-15 17:00 | XMS_ITS | Encounter Summary ---
Author Organization [facility] Address [facility] [place] [address] Care Team Providers Care Vba Developer Name Role Phone Edie Ellis MD Primary Care Provider [phone] Reason for Visit * Consultation (Routine) - Closed Specialty Diagnoses / Procedures Referred By Geraldine olmedo Referred To Contact Genetics Diagnoses Cardiomyopathy, unspecified type Kina Awad PA [facility] [place] [address] [address] Referral ID Status Reason Start Date Expiration Date V isits Requested Visits Authorized [id number] Closed Consult, Test & Treat 06/17/2021 06/17/2022 1 1 Encounter Details Date Type Department Care Team (Latest Contact Info) Description 10/07/2021 10:00 AM EST TH Visit (TeleHealth) Medical Genetics at [address] [address] Jyoti Bay, [facility] [place] [address] Dilated cardiomyopathy Social History Tobacco [...] this encounter Progress Notes * PhuAnanyaJyoti R, [facility] - 10/07/2021 10:00 AM EST Jammie has [...] IDC, the diagnosis of familial dilated cardiomyopathy (LONG-TERM) is made. It usually takes many years [...] minutes of the visit were spent in [id number] discussions regarding the clinical diagnosis and care planning. Family agreed with the plans discussed. Jyoti Bay MS, [facility] Licensed Senior Genetic Counselor documented in this encounter Plan of Treatment Upcoming Encounters Date Type Department Care Team (Late st Contact Info) Description 10/05/2024 11:00 AM EST Appointment XRay at [address] [place] [address] 10/05/2024 1:10 PM EST Appointment MRI at [facility] [place] [address] Pricilla Finney MD [facility] [place] [address] 10/05/2024 1:10 PM [place] [address] Pricilla Finney MD [facility] [place] [address] 10/07/2024 10:00 AM EST Hospital Encounter Non-Invasive [place] [address] Arrived Scheduled Referrals Name Type Priority Associated Diagnoses Orde r Schedule Referral to Genetics Outpatient Referral Routine Cardiomyopathy, unspecified type Ordered: 06/17/2021 documented as of this encounter Visit Diagnoses Diagnosis Dilated cardiomyopathy Other primary cardiomyopathies documented in this encounter Care Teams Vba Developer Relationship Specialty Start Date End Date Edie Ellis MD [facility] M[address]AL[address] [place] [address] PCP - General 10/15/10 documented as of this encounter
--- OUTSIDE RECORDS SUMMARY | 2024-08-15 17:00 | XMS_ITS | Encounter Summary ---
Author Organization [facility] [place] [address] Care Team Providers Care Commercial Insurance Underwriter Name Role Phone Edie Ellis MD Primary Care Provider Encounter Details Date Type Department Care Team (Late st Contact Info) Description 01/23/2023 Ancillary Procedure Radiology Library at [facility] [place] [address] Edie Ellis MD [facility] MORALES GRANADOS [address] [place], [place] [address] Social History Tobacco Use Types Packs/Day Years [...] 10/05/2024 11:00 AM EST Appointment XRay at [address] [place] [address] 10/05/2024 1:10 PM EST Appointment MRI at [facility] [place] [phone] Pricilla Finney MD [facility] [place] [address] 10/05/2024 1:10 PM [place] [address] Pricilla Finney MD [facility] [place] [address] 10/07/2024 10:00 AM EST Hospital Encounter Non-[place] [address] Arrived documented as of this encounter Procedures Procedure Name Priority Date/Time Associated Diagnosis Comments FILM LIBRARY STORAGE ONLY MR SPINE Routine 01/23/2023 12:00 AM EST documented in this encounter Results * Film Library- Storage Only MR Spine (01/23/2023 12:00 AM EST) Narrative [facility] - 01/25/2023 8:57 PM EST This exam is auto-finalizing. It's purpose is for storage only. Edie Ellis MD IMG FILM LIBRARY ORD ERABLES Performing Organization Address City/State/[facility] Co de Phone Number [place], [place] documented in this encounter Visit Diagnoses Not on filedocumented in this encounter Care Teams Commercial Insurance Underwriter Relationship Specialty Start Date End Date Edie Ellis MD [facility] MORAL[address] [place] [address] PCP - General 10/15/10 documented as of this encounter
--- OUTSIDE RECORDS SUMMARY | 2024-08-15 17:00 | XMS_ITS | Encounter Summary ---
Author Organization [facility] [place] [address] Care Team Providers Care Warehouse Operations Manager Name Role Phone Edie Ellis MD Primary Care Provider [phone] Reason for Visit * Reason Onset Date Comments Questions 03/26/2023 Cardiac clearanc e for orthopedic surgery Encounter Details Date Type Department Care Team (Late Contact Info) Description 03/26/2023 Telephone Cardiology at [address] [phone] Angélica Polo, RN Questions (Cardiac clearance for [...] PM EDT Call received from Angélica at [address] [place] [address] Orthopedics in [facility] (phone [phone]) stating that the pt has had the [...] 11:00 AM EST Appointment XRay at [address] [place] [address] 10/05/2024 1:10 PM [place] [address] Pricilla Finney MD [facility] [place] [address] 10/05/2024 1:10 PM [place] [phone] Pricilla Finney MD [facility] [place] [address] 10/07/2024 10:00 AM EST Hospital Encounter Non-[place] [address] Arrived documented as of this encounter Visit Diagnoses Not on filedocumented in this encounter Care Teams Warehouse Operations Manager Relationship Specialty Start Date End Date Edie Ellis MD [facility] [place] [address] PCP - General 10/15/10 documented as of this encounter
--- OUTSIDE RECORDS SUMMARY | 2024-08-15 17:00 | XMS_ITS | Encounter Summary ---
Author Organization [facility] Address [facility] [place] [address] Care Team Providers Care Cut Off Saw Operator Metal Name Role Phone dEie Ellis MD Primary Care Provider [phone] Encounter Details Date Type Department Care Team (Late st Contact Info) Description 09/07/2022 7:40 PM EDT Ancillary Procedure Radiology Library at [facility] [place] [address] Ngoc Hernandez MD [facility] PULMONARY [place] [address] Social History Tobacco Use Types Packs/Day Years [...] 11:00 AM EST Appointment XRay at [address] [place] [address] 10/05/2024 1:10 PM EST Appointment MRI at [facility] [place] [phone] Pricilla Finney MD [facility] [place] [address] 10/05/2024 1:10 PM [place] [address] Pricilla Finney MD [facility] [place] [address] 10/07/2024 10:00 AM EST Hospital Encounter Non-Invasive [place] [address] Arrived documented as of this encounter Procedures Procedure Name Priority Date/Time Associated Diagnosis Comments FILM LIBRARY STORAGE ONLY CT CHEST Routine 09/07/2022 7:35 PM EDT documented in this encounter Results * Film Library- Storage Only CT Chest (09/07/2022 7:35 PM EDT) Narrative [facility] - 09/07/2022 7:35 PM EDT This exam is auto-finalizing. It's purpose is for storage only. Ngoc Hernandez MD IMG FILM LIBRARY ORD ERABLES [place], [place] documented in this encounter Visit Diagnoses Not on filedocumented in this encounter Care Teams Cut Off Saw Operator Metal Relationship Specialty Start Date End Date Edie Ellis MD [facility] MORALES [address] [place] [address] PCP - General 10/15/10 documented as of this encounter
--- OUTSIDE RECORDS SUMMARY | 2024-08-15 17:00 | XMS_ITS | Encounter Summary ---
Author Organization [facility] Address [facility] [place] [address] Care Team Providers Care Joint Machine Operator Name Role Phone Edie Ellis MD Primary Care Provider [phone] Encounter Details Date Type Department Care Team (Late st Contact Info) Description 04/10/2023 Orders Only Cardiology at [address] [phone] Kina Awad PA [facility] [place] [place] [address] Social History Tobacco Use Types Packs/Day Years [...] 11:00 AM EST Appointment XRay at [address] [place] [address] 10/05/2024 1:10 PM [place] [address] Pricilla Finney MD [facility] [place] [address] 10/05/2024 1:10 PM [place] [address] Pricilla Finney MD [facility] [place] [address] 10/07/2024 10:00 AM EST Hospital Encounter Non-Invasive [place] [address] Arrived documented as of this encounter Visit Diagnoses Not on filedocumented in this encounter Care Teams Joint Machine Operator Relationship Specialty Start Date End Date Edie Ellis MD [facility] MORALES [address]Z [address] [place] [address] PCP - General 10/15/10 documented as of this encounter
--- OUTSIDE RECORDS SUMMARY | 2024-08-15 17:00 | XMS_ITS | Encounter Summary ---
Author Organization [facility] [place] [address] Care Team Providers Care Pecan Cleaner Name Role Phone Edie Ellis MD Primary Care Provider [phone] Encounter Details Date Type Department Care Team (Late st Contact Info) Description 10/15/2021 Orders Only Medical Genetics at [address] [address] Jyoti Bay, [facility] [place] [address] Dilated cardiomyopathy Social History Tobacco Use Types [...] 10/05/2024 11:00 AM EST Appointment XRay at [address] [place] [address] 10/05/2024 1:10 PM EST Appointment MRI at [facility] [place] [address] Pricilla Finney MD [facility] [place] [address] 10/05/2024 1:10 PM [place] [address] Pricilla Finney MD [facility] [place] [address] 10/07/2024 10:00 AM EST Hospital Encounter Non-[place]vasive [place] [address] Arrived documented as of this encounter Visit Diagnoses Diagnosis Dilated cardiomyopathy Other primary cardiomyopathies documented in this encounter Care Teams Pecan Cleaner Relationship Specialty Start Date End Date Edie Ellis MD [facility] MORALES [address] [place] [address] PCP - General 10/15/10 documented as of this encounter
--- OUTSIDE RECORDS SUMMARY | 2024-08-15 17:00 | XMS_ITS | Encounter Summary ---
Author Organization [facility] [place] [address] Care Team Providers Care Business Affairs Manager Name Role Phone Edie Ellis MD Primary Care Provider [phone] Reason for Visit * Reason Onset Date Comments Prior Authorization 03/18/2023 [id number] Ethyl Esters 1GM capsules Encounter Details Date Type Department Care Team (Late st Contact Info) Description 03/18/2023 Telephone Cardiology at [address] [address] Rasta Grewal CMA Prior Authorization ([id number] Ethyl Esters 1GM capsules) Social History Tobacco [...] PA Outcome: PA Denial [place] [address] DENIED: [id number] Ethyl Esters 1GM capsules Case/Reference #: [id number] Additional Information from Insurance: * Telephone Encounter - Rasta Grewal CMA - 03/18/2023 8:22 AM EDT Images from the original note were not included. PA Submitted Submitted Date: Submitted Date: 03/18/2023 Medication Prior Authorization Patient: Jammie Gottlieb Patient : [id number] Insurance Company: [employer] Medicare Sent via: [employer] Bhakta: [id number] Physician: Kina Awad PA Medication [...] 11:00 AM EST Appointment XRay at [address] [place] [address] 10/05/2024 1:10 PM EST [place] [address] Pricilla Finney MD [facility] [place] [address] 10/05/2024 1:10 PM EST [place] [address] Pricilla Finney MD [facility] [place] [address] 10/07/2024 10:00 AM EST Hospital Encounter Non-[place] [address] Arrived documented as of this encounter Visit Diagnoses Not on filedocumented in this encounter Care Teams Business Affairs Manager Relationship Specialty Start Date End Date Edie Ellis MD [facility] M[facility]ES [facility] 1 [place] [address] PCP - General 10/15/10 documented as of this encounter
--- OUTSIDE RECORDS SUMMARY | 2024-08-15 17:00 | XMS_ITS | Encounter Summary ---
[place] [address] Care Team Providers Care Hopper Feeder Name Role Phone Edie Ellis MD Primary Care Provider Encounter Details Date Type Department Care Team (Latest Contact Info) Description 10/25/2021 10:50 AM EST - 10/25/2021 11:59 PM EST [place] [address] Discharge Disposition: Home Social History Tobacco Use [...] a day 03/12/2015 naloxone (Narcan) 4 mg/actuation Jber, Non-Aerosol Once 03/10/2019 magnesium oxide (MAG-OX) 400 [...] 2 diabetes mellitus without complication, unspecified whether terminal computer operator insulin use Take 10 mg by [...] 10/05/2024 11:00 AM EST Appointment XRay at [address] [place] [address] 10/05/2024 1:10 PM [place] [address] Pricilla Finney MD [facility] [place] [address] 10/05/2024 1:10 PM [place] [address] Pricilla Finney MD [facility] [place] [address] 10/07/2024 10:00 AM EST Hospital Encounter Non-[place]vasive [place] [address] Arrived documented as of this encounter Procedures Procedure Name Priority Date/Time Associated Diagnosis Comments [facility] SENDOUT Routine 10/25/2021 1:52 PM EST documented in this encounter Results * [facility] Sendout (10/25/2021 1:52 PM EST) [facility] Sendout See Note [facility] Comment: The ordered test is: Cardiomyopathy and Arrhythmia Panel [employer], [address] [place] [id number] See Scanned Report. Buccal Swab Other / Unknown 10/25/2021 1 :52 PM EST 11/11/2021 1:53 PM EST Nroa Fernandes MD LAB SEND OUT [facility] [address] documented in this encounter Visit Diagnoses Not on filedocumented in this encounter Care Teams Hopper Feeder Relationship Specialty Start Date End Date Edie Ellis MD [address] [place] [address] PCP - General 10/15/10 documented as of this encounter
--- OUTSIDE RECORDS SUMMARY | 2024-08-15 17:00 | XMS_ITS | Encounter Summary ---
Author Organization [facility] [place] [address] Care Team Providers Care Blood Bank Technician Name Role Phone Edie Ellis MD Primary Care Provider [phone] Encounter Details Date Type Department Care Team (Late st Contact Info) Description 02/11/2022 Ancillary Procedure Radiology Library at [facility] [place] [address] Edie Ellis MD [facility] MORALES GRANADOS [address]TOINE [address] [place], [place] [address] Social History Tobacco Use Types Packs/Day Years [...] 11:00 AM EST Appointment XRay at [address] [place] [address] 10/05/2024 1:10 PM EST Appointment MRI at [facility] [place] [phone] Pricilla Finney MD [facility] [place] [address] 10/05/2024 1:10 PM [place] [address] Pricilla Finney MD [facility] [place] [address] 10/07/2024 10:00 AM EST Hospital Encounter Non-[place] [address] Arrived documented as of this encounter Procedures Procedure Name Priority Date/Time Associated Diagnosis Comments FILM LIBRARY STORAGE ONLY DX SHOULDER Routine 02/11/2022 12:00 AM EDT documented in this encounter Results * Film Library- Storage Only DX Shoulder (02/11/2022 12:00 AM EDT) Narrative [facility] - 04/11/2022 10:39 AM EDT This exam is auto-finalizing. It's purpose is for storage only. Edie Ellis MD IMG FILM LIBRARY ORD ERABLES [place], [place] documented in this encounter Visit Diagnoses Not on filedocumented in this encounter Care Teams Blood Bank Technician Relationship Specialty Start Date End Date Edie Ellis MD [facility] MORAL[address] [place] [address] PCP - General 10/15/10 documented as of this encounter
--- OUTSIDE RECORDS SUMMARY | 2024-08-15 17:00 | XMS_ITS | Encounter Summary ---
Author Organization [facility] [place] [address] Care Team Providers Care Carousel Operator Name Role Phone Edie Ellis MD Primary Care Provider [phone] Encounter Details Date Type Department Care Team [...] 11:00 AM EST Appointment XRay at [address] [place] [address] 10/05/2024 1:10 PM [place] [address] Pricilla Finney MD [facility] [place] [address] 10/05/2024 1:10 PM [place] [address] Pricilla Finney MD [facility] [place] [address] 10/07/2024 10:00 AM EST Hospital Encounter Non-[place] [address] Arrived documented as of this encounter Visit Diagnoses Not on filedocumented in this encounter Care Teams Carousel Operator Relationship Specialty Start Date End Date Edie Ellis MD [facility] MORALES GRANADOS [facility] 1 [place] [address] PCP - General 10/15/10 documented as of this encounter
--- OUTSIDE RECORDS SUMMARY | 2024-08-15 17:00 | XMS_ITS | Encounter Summary ---
Author Organization [facility] [place] [address] Care Team Providers Care Glue Line Operator Name Role Phone Edie Ellis MD Primary Care Provider [phone] Encounter Details Date Type Department Care Team [...] 11:00 AM EST Appointment XRay at [address] [place] [address] 10/05/2024 1:10 PM [place] [address] Pricilla Finney MD [facility] [place] [address] 10/05/2024 1:10 PM [place] [address] Pricilla Finney MD [facility] [place] [address] 10/07/2024 10:00 AM EST Hospital Encounter Non-[place] [address] Arrived documented as of this encounter Visit Diagnoses Not on filedocumented in this encounter Care Teams Glue Line Operator Relationship Specialty Start Date End Date Edie Ellis MD [facility] MORALES GRANADOS [facility] 1 [place] [address] PCP - General 10/15/10 documented as of this encounter
--- OUTSIDE RECORDS SUMMARY | 2024-08-15 17:00 | XMS_ITS | Encounter Summary ---
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 Neurology [address] [place] [phone] Referral ID Status Reason Start Date Expiration Date V isits Requested Visits Authorized [id number] Closed Consult, Test & Treat 01/02/2022 01/02/2023 1 1 Encounter Details Date Type Department Care Team (Late st Contact Info) Description 01/02/2022 11:30 AM EST Office Visit Cardiology at [address] [phone] Alla Nash MD [facility] [place] [address] Kina Awad PA [facility] [place] [address] HFrEF (heart failure with reduced [...] from the original note were not included. [facility] Section of Advanced Heart Failure Cardiology [facility] [place] [phone] OUTPATIENT VISIT DATE: 06/09/21 OUTPATIENT VISIT TYPE: [...] event Aug 2020, admitted to [facility]. Loss of urine. 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 [...] mouth daily. ??? Lancets Misc by [facility].(Non-Drug; Combo Route) route daily. ??? Miscellaneous Medical Supply [facility] 1 strip by [facility].(Non-Drug; Combo Route) route daily. ??? clonAZEpam (KLONOPIN) [...] Clinical summary ?? A Likely Pathogenic variant, [id number] ([id number]*), was identified in TTN. The TTN gene is associated with autosomal dominant dilated cardiomyopathy (DCM) (MedGen UID: 2880).Additionally, the TTN gene is associated with a diverse group of disorders affecting skeletal muscles, including autosomal dominant tibial muscular dystrophy (TMD) (MedGen UID: 469364) and autosomal recessive limb- girdle muscular dystrophy type 2J (LGMD2J) (MedGen UID: 794523), autosomal recessive centronuclear myopathy (CNM) (PMID: 67684321), and autosomal dominant hereditary myopathy with earlyrespiratory failure (HMERF)(MedGen UID: 877623). Additional TTN-related conditions have also been reported (OMIM: 825835).This result is consistent with a predisposition to, or diagnosis of, autosomal dominant TTN-related conditions. TTN is associated with a clinically heterogeneous group of disorders, collectively known as the titinopathies, which can have distinct and/or overlapping features (PMID: 26363148, 65313393, 89338516). Correlation with a particular condition should include a review of the Variant. Details section of the report below. Pathogenic yiha-er-ivkrjtfp variants in the A-band are associated with an increased risk of autosomal dominant DCM, although associations with other types of cardiomyopathy have been suggested (PMID: 65140267, 14969124). DCM is defined by left ventricular dilation and systolic dysfunction. Symptoms include palpitations, dizziness, syncope, chestpain, shortness of breath, heart failure and in some cases sudden cardiac arrest/ (PMID: 16958046, 18439524). For more information about diagnosis and management of dilated cardiomyopathy, please visit [employer]'s website at [email or web address]. Some pathogenic missense variants in exon 343 ofthe A band are only known to be associated with HMERF. HMERF is an early adult-onsetdisorder characterized by proximal and distal skeletal muscle weakness of the upper and lower extremities and respiratory insufficiency (PMID: 96061093, 03100123). Muscle histopathology frequentlyiden tifies inclusion bodies and rimmed vacuoles (PMID: 01739604). Disease progression often includes loss of the ability to walk and the need for permanent ventilatory support relatively early in life (PMID: 28379787). Clinical, MRI, and histopathology similarities exist between HMERF and myofibrillar myopathies (PMID: 19914672). Pathogenic variants in the A-band may also be associated with autosomalrecessive neuromusculardisorders, including centronuclear myopathy and limb-girdle muscular dystrophy (PMID: 53096171, 42063883). Biological relatives have a chance of being [...] Lasix 2/2 intravasculation volume depletion ICD or ROVING FRAME TENDER-D if indicated Not indicated with LVEF >35% [...] TTN gene variant Will consider evaluation at [facility] with the genetics/cardiology team COUNSELING: The [...] 11:00 AM EST Appointment XRay at [address] [place] [address] 10/05/2024 1:10 PM [place] [phone] Pricilla Finney MD [facility] [place] [address] 10/05/2024 1:10 PM [place] [phone] Pricilla Finney MD [facility] [place] [address] 10/07/2024 10:00 AM EST Hospital Encounter Non[place] [address] Arrived Scheduled Referrals Name Type Priority Associated Diagnoses Orde r Schedule Referral to Neurology Outpatient Referral Routine 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 Muscle weakness Ordered: 01/02/2022 documented as of this encounter Results * CK (01/02/2022 10:43 AM EST) Creatine Kinase 32 0 - 160 unit/L [facility] Blood 01/02/2022 10:4 3 AM EST 01/02/2022 10:52 AM EST Narrative Resulting Agency Comment Spec In Lab Alla Richardson MD CHEMISTRY OR DERABLES Performing Organization Address [facility] Co de Phone Number [facility] [place] [address] * (ABNORMAL) pro-Brain Natriuretic Peptide (01/02/2022 10:43 AM EST) NT-proBNP 140(H) <=124 pg/mL [facility] Blood 01/02/2022 10:4 3 AM EST 01/02/2022 10:52 AM EST Narrative Resulting Agency Comment Spec In Lab Alla Richardson MD CHEMISTRY OR DERABLES Performing Organization Address [facility] Co de Phone Number [facility] [place] [address] * (ABNORMAL) Basic Metabolic Panel (non-fasting) (01/02/2022 10:43 AM EST) Glucose 209(H) 65 - 199 mg/dL [facility] Comment:Diabetes: >=200 mg/d L plus symptoms Blood Urea Nitrogen 10 8 - 18 mg/dL [facility] Creatinine 0.64(L) 0.70 - 1.20 mg/dL [facility] Sodium 137 135 - 145 mmol/L [facility] Potassium 4.4 3.5 - 5.0 mmol/L [facility] Comment: Please note: ??Patients with WBC >100,000 may have falsely elevated Potassium levels. ??For accurate Potassium quantification in these patients send serum separator tube (gold top) for subsequent determinations. ??Contact the Clinical Chemistry Laboratory if there are any questions. Chloride 101 98 - 107 mmol/L [facility] Carbon Dioxide 23 22 - 31 mmol/L [facility] Anion Gap 13 5 - 15 mmol/L [facility] Calcium 8.7 8.5 - 10.5 mg/dL [facility] Est Glomerular Filtration Rate 107 >=60 mL/min/1. 73 m?? [facility] Comment: This patient? 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
--- OUTSIDE RECORDS SUMMARY | 2024-08-15 17:00 | XMS_ITS | Encounter Summary ---
[place] [address] Care Team Providers Care School Laboratory Technician Name Role Phone Edie Ellis MD Primary Care Provider [phone] Encounter Details Date Type Department Care Team (Latest Contact Info) Description 01/02/2022 10:48 AM EST - 01/02/2022 11:59 PM EST Hospital [place] [address] Pulmonary hypertension Discharge Disposition: Home Social History [...] day 03/12/2015 naloxone (Narcan) 4 mg/actuation [place], Non-Aerosol Once 03/10/2019 magnesium oxide (MAG-OX) 400 [...] 11:00 AM EST Appointment XRay at [address] [place] [address] 10/05/2024 1:10 PM [place] [address] Pricilla Finney MD [facility] [place] [address] 10/05/2024 1:10 PM [place] [address] Pricilla Finney MD [facility] [place] [address] 10/07/2024 10:00 AM EST Hospital Encounter Non-Invasive [place] [address] Arrived documented as of this encounter Procedures [...] / FVC LLN 70 % COMPAS PFT MGU43-01 Actual Pre-BD 3.54 L/s COMPAS PFT GUJ51-61 Pre-BD % of Predicted 122 % COMPAS PFT YNT63-30 Predicted 2.90 L/s COMPAS PFT ZPK84-01 Pre-BD Z-Score 0.73 COMPAS PFT DLCO Hb [...] diseases documented in this encounter Care Teams School Laboratory Technician Relationship Specialty Start Date End Date Edie Ellis MD [address] [place] [address] PCP - General 10/15/10 documented as of this encounter
--- OUTSIDE RECORDS SUMMARY | 2024-08-15 17:00 | XMS_ITS | Encounter Summary ---
Author Organization [facility] [place] [address] Care Team Providers Care Potato Peeler Name Role Phone Edie Ellis MD Primary Care Provider [phone] Encounter Details Date Type Department Care Team (Latest Contact Info) Description 03/12/2023 8:00 AM EDT Laboratory Appointment Lab [address] [place] [phone] HFrEF (heart failure with reduced ejection fraction) [...] 10/05/2024 11:00 AM EST Appointment XRay at [address] [place] [phone] 10/05/2024 1:10 PM EST [place] [phone] Pricilla Finney MD [facility] [address] 10/05/2024 1:10 PM [place] [address] Pricilla Finney MD [facility] [place] [address] 10/07/2024 10:00 AM EST Hospital Encounter Non-Invasive [place] [address] Arrived documented as of this [...] AM EDT) LDL Cholesterol, Direct 37 mg/dL [facility] Comment: Lowest Risk: <100 mg/dL Lower Risk: 100-129 mg/dL Borderline High Risk: 130-159 mg/dL High Risk: 160-189 mg/dL Very High Risk: >zg=504 mg/dL Blood 03/12/2023 8:10 AM EDT 03/12/2023 8:26 AM EDT Narrative Resulting Agency Comment Spec In Lab Kina RODRÍGUEZ CHEMISTRY ORDERABLES [facility] [place] [address] * Lipid Panel (Reflex Direct LDL) (03/12/2023 8:10 AM EDT) Cholesterol, Total 124 mg/dL [facility] Comment: Lower Risk: <200 mg/dL Average Risk: 200-239 mg/dL Higher Risk: >jz=763 mg/dL Triglyceride 609 mg/dL [facility] Comment: Average Risk/Lower Risk: <150 mg/dL Borderline High Risk: 150-199 mg/dL High Risk: 200-499 mg/dL Very High Risk: >ur=918 mg/dL HDL Cholesterol 27 mg/dL [facility] Comment: Males: ?? Higher Risk: <40 mg/dL Females: ?? Higher Risk: <50 mg/dL LDL Cholesterol Not Calculated [facility] Comment: Calculated LDL value is not valid for triglycerides greater than 400 mg/dl. Lowest Risk: <100 mg/dL Lower Risk: 100-129 mg/dL Borderline High Risk: 130-159 mg/dL High Risk: 160-189 mg/dL Very High Risk: >yd=561 mg/dL Cholesterol/HDL Ratio 4.6 ratio [facility] Lipid Interpretation See Note [facility] Comment: Lipid management should be guided by a patient? s ASCVD risk, goals and preferences. ACC/AHA Guidelines recommend high intensity statin if clinical ASCVD or LDL greater than or equal to 190 mg/dL. http://Unique Property.Soysuper/AAO-FPV-Mqlzojchu Adults aged 40-75 with LDL 70-189 mg/dL should have their 10 year ASCVD risk estimated with the ACC/AHA ASCVD risk construction estimator http://tools.acc.org/XSHTG-Hsmb-Wzothrxxc/ Statin should be discussed if risk greater [...] Resulting Agency Comment Spec In Lab Loyda Barrois MD CHEMISTRY ORDERABL ES [facility] [place] [address] * (ABNORMAL) Comprehensive metabolic panel (non-fasting) (03/12/2023 8:10 AM EDT) Glucose 193 65 - 199 mg/dL [facility] Comment:Diabetes: >=200 mg/d L plus symptoms Blood Urea Nitrogen 10 8 - 18 mg/dL [facility] Creatinine 0.53(L) 0.70 - 1.20 mg/dL [facility] Sodium 137 135 - 145 mmol/L [facility] Potassium 3.9 3.5 - 5.0 mmol/L [facility] Comment: Please note: ??Patients with WBC >100,000 may have falsely elevated Potassium levels. ??For accurate Potassium quantification in these patients send serum separator tube (gold top) for subsequent determinations. ??Contact the Clinical Chemistry Laboratory if there are any questions. Chloride 99 98 - 107 mmol/L [facility] Carbon Dioxide 26 22 - 31 mmol/L [facility] Anion Gap 12 5 - 15 mmol/L [facility] Calcium 9.2 8.5 - 10.5 mg/dL [facility] Protein, Total 6.7 6.1 - 8.0 g/dL [facility] Albumin 4.0 3.2 - 5.2 g/dL [facility] Aspartate Aminotransferase 22 0 - 30 unit/L [facility] Alanine Aminotransferase 16 0 - 30 unit/L [facility] Alkaline Phosphatase 59 35 - 105 unit/L [facility] Bilirubin, Total 0.4 0.2 - 1.3 mg/dL [facility] Est Glomerular Filtration Rate 115 >=60 mL/min/1. 73 m?? [facility] Comment: This patient's estimated [...] MD CHEMISTRY ORDERABL ES Performing Organization Address [facility]/[place] [address] * pro-Brain Natriuretic Peptide (03/12/2023 8:10 AM EDT) NT-proBNP 49 <=124 pg/mL [facility] Blood 03/12/2023 8:10 AM EDT 03/12/2023 8:19 AM EDT Narrative Resulting Agency Comment Spec In Lab Loyda Barrios MD CHEMISTRY ORDERABL ES Performing Organization Address [facility] [place] [address] documented in this encounter Visit Diagnoses Diagnosis HFrEF (heart failure with reduced ejection fraction) documented in this encounter Care Teams Potato Peeler Relationship Specialty Start Date End Date Edie Ellis MD [address] [place] [address] PCP - General 10/15/10 documented as of this encounter
--- OUTSIDE RECORDS SUMMARY | 2024-08-15 17:00 | XMS_ITS | Encounter Summary ---
Author Organization [facility] Address [facility] [place] [address] Care Team Providers Care Cargo Service Supervisor Name Role Phone Edie Ellis MD Primary Care Provider Encounter Details Date Type Department Care Team (Late st Contact Info) Description 03/19/2023 Orders Only Cardiology at [address] [phone] Kina Awad PA [facility] [place] [address] Social History Tobacco Use Types Packs/Day Years [...] 11:00 AM EST Appointment XRay at [address] [place] [address] 10/05/2024 1:10 PM [place] [address] Pricilla Finney MD [facility] [place] [place] [address] 10/05/2024 1:10 PM [place] [address] Pricilla Finney MD [facility] [place] [place] [address] 10/07/2024 10:00 AM EST Hospital Encounter Non-[place]vasive [place] [address] Arrived documented as of this encounter Visit Diagnoses Not on filedocumented in this encounter Care Teams Cargo Service Supervisor Relationship Specialty Start Date End Date Edie Ellis MD [facility] [address] [place] [address] PCP - General 10/15/10 documented as of this encounter
--- OUTSIDE RECORDS SUMMARY | 2024-08-15 17:00 | XMS_ITS | Encounter Summary ---
[place] [address] Care Team Providers Care Roofer Assistant Name Role Phone Edie Ellis MD Primary Care Provider Reason for Visit * Reason Onset Date Comments Questions 03/04/2023 Pre-op clearance Encounter Details Date Type Department Care Team (Late st Contact Info) Description 03/04/2023 Telephone Cardiology at [address] [phone] Angélica Polo, RN Questions (Pre-op clearance) Social [...] 11:00 AM EST Appointment XRay at [address] [place] [address] 10/05/2024 1:10 PM [place] [address] Pricilla Finney MD [facility] [address] 10/05/2024 1:10 [place] [address] Pricilla Finney MD [facility] [place] [address] 10/07/2024 10:00 AM EST Hospital Encounter Non-[place] [address] Arrived documented as of this encounter Visit Diagnoses Not on filedocumented in this encounter Care Teams Roofer Assistant Relationship Specialty Start Date End Date Edie Ellis MD [facility] [address] [place] [address] PCP - General 10/15/10 documented as of this encounter
--- OUTSIDE RECORDS SUMMARY | 2024-08-15 17:00 | XMS_ITS | Encounter Summary ---
Author Organization [facility] [place] [address] Care Team Providers Care Evp Name Role Phone Edie Ellis MD Primary Care Provider [phone] Encounter Details Date Type Department Care Team (Late st Contact Info) Description 04/08/2022 Ancillary Procedure Radiology Library at [facility] [place] [address] Edie Ellis MD [facility] [address] [place], [place] [address] Social History Tobacco Use Types Packs/Day Years [...] 11:00 AM EST Appointment XRay at [address] [place] [address] 10/05/2024 1:10 PM EST Appointment MRI at [facility] [place] [phone] Pricilla Finney MD [facility] [place] [place] [address] 10/05/2024 1:10 PM [place] [address] Pricilla Finney MD [facility] [place] [place] [address] 10/07/2024 10:00 AM EST Hospital Encounter Non-[place] [address] Arrived documented as of this encounter Procedures Procedure Name Priority Date/Time Associated Diagnosis Comments FILM LIBRARY STORAGE ONLY MR SHOULDER Routine 04/08/2022 12:00 AM EDT documented in this encounter Results * Film Library- Storage Only MR Shoulder (04/08/2022 12:00 AM EDT) Narrative [facility] - 04/11/2022 10:37 AM EDT This exam is auto-finalizing. It's purpose is for storage only. Edie Ellis MD IMG FILM LIBRARY ORD ERABLES [place], [place] documented in this encounter Visit Diagnoses Not on filedocumented in this encounter Care Teams Evp Relationship Specialty Start Date End Date Edie Ellis MD [facility] [address] [place] [address] PCP - General 10/15/10 documented as of this encounter
--- OUTSIDE RECORDS SUMMARY | 2024-08-15 17:00 | XMS_ITS | Encounter Summary ---
Author Organization [facility] Address [facility] [place] [address] Care Team Providers Care Foundry Manager Name Role Phone Edie Ellis MD Primary Care Provider [phone] Encounter Details Date Type Department Care Team (Latest Contact Info) Description 07/07/2022 12:18 PM EDT - 07/07/2022 1:51 PM EDT Hospital Encounter [place] [address] Denisse Pelaez MD [facility] [place] [address] Discharge Disposition: Home Social History Tobacco Use [...] call Dr. Pelaez at our office at [phone] 8am-5pm (weekdays) or after hours call and ask to have the rn on site for Neurology paged. These instructions have been [...] a day 03/12/2015 naloxone (Narcan) 4 mg/actuation [place], Non-Aerosol Once 03/10/2019 magnesium oxide (MAG-OX) 400 [...] Pelaez MD - 07/07/2022 1:06 PM EDT [facility] Operative Note Patient Name: Jammie Gottlieb : [id number] MR#: [id number] Case Date: 07/07/2022 Surgeon: Surgeon(s) and Role: [...] 11:00 AM EST Appointment XRay at [address] [place] [address] 10/05/2024 1:10 PM [place] [address] Pricilla Finney MD [facility] [place] [address] 10/05/2024 1:10 PM [place] [address] Pricilla Finney MD [facility] [place] [address] 10/07/2024 10:00 AM EST Hospital Encounter Non-[place] [address] Arrived documented as of this encounter Procedures [...] PM EDT 07/07/2022 1:06 PM EDT Narrative [facility] - 07/07/2022 1:06 PM EDT Specimen requisition ordered. ??Separate Pathology report to follow Denisse Pelaez MD PATHOLOGY/CYTOLOGY O CHRISTA [facility] [place] [address] * Surgical Pathology Report (07/07/2022 12:35 PM EDT) Final Diagnosis [id number] ? Location: OR; ORMN; A The signing [...] MD Verified: ??07/18/2022 16:14 ??Pathologist Performed at: ??-[facility] Dept. of Pathology, [place], [place] SYNOPTIC none DISCUSSION Paraffin-embedded fragments of [...] a few detached adipose tissue fragments. Sections/Processing: Art Psychotherapist sections in 2 cassettes as follows: ?A1: ??Frozen in OCT for histochemistry. ?A2: ??Fixed in formalin for light microscopy. ??sns 07/18/2022 4:14 PM EDT [facility] MUSCLE SPECIMEN / Unknown 07/07/2022 12:35 PM EDT 07/07/2022 12:35 PM EDT Denisse Pelaez MD PATHOLOGY/CYTOLOGY O RDERABLES [facility] [place] [address] documented in this encounter Visit Diagnoses Not on filedocumented in this encounter Active and Recently Administered Medications Times are shown in EDT. PRN Medication Order 07/05/2022 07/06/2022 07/07/2022 lidocaine-EPINEPHrine (1% - 1:100,000) injection (CANCELED) ONCE PRN, Starting on Thu07/07/22 at 1307, Until Thu07/07/22 at 1511, Intra-Operative (Intra-Procedure), Routine 1307 (Given - Provid er: Denisse Pelaez MD) documented in this encounter Care Teams Foundry Manager Relationship Specialty Start Date End Date Edie Ellis MD [facility] [address] [place] [address] PCP - General 10/15/10 documented as of this encounter
--- OUTSIDE RECORDS SUMMARY | 2024-08-15 17:00 | XMS_ITS | Encounter Summary ---
Author Organization [facility] [place] [address] Care Team Providers Care Reinsurance Accountant Name Role Phone Edie Ellis MD Primary Care Provider [phone] Encounter Details Date Type Department Care Team (Late st Contact Info) Description 10/22/2021 [place] [address] Edie Kaba Social History Tobacco [...] 11:00 AM EST Appointment XRay at [address] [place] [phone] 10/05/2024 1:10 PM [place] [address] Pricilla Finney MD [facility] [place] [address] 10/05/2024 1:10 PM [place] [address] Pricilla Finney MD [facility] [place] [address] 10/07/2024 10:00 AM EST Hospital Encounter [place] [address] Arrived documented as of this encounter Visit Diagnoses Not on filedocumented in this encounter Care Teams Reinsurance Accountant Relationship Specialty Start Date End Date Edie Ellis MD [facility] [address] [address] PCP - General 10/15/10 documented as of this encounter
--- OUTSIDE RECORDS SUMMARY | 2024-08-15 17:00 | XMS_ITS | Encounter Summary ---
Author Organization [facility] [place] [address] Care Team Providers Care Clinical Operations Manager Name Role Phone Edie Ellis MD Primary Care Provider [phone] Encounter Details Date Type Department Care Team (Latest Contact Info) Description 01/02/2022 10:30 AM EST Laboratory Appointment Lab [address] [place] [phone] HFrEF (heart failure with reduced ejection fraction) [...] 10/05/2024 11:00 AM EST Appointment XRay at [address] [place] [phone] 10/05/2024 1:10 PM [place] [phone] Pricilla Finney MD [facility] [place] [address] 10/05/2024 1:10 PM [place] [address] Pricilla Finney MD [facility] [place] [address] 10/07/2024 10:00 AM EST Hospital Encounter Non-[place] [phone] Arrived documented as of this encounter Procedures [...] EST) Glucose 209(H) 65 - 199 mg/dL [facility] Comment:Diabetes: >=200 mg/d L plus symptoms Blood Urea Nitrogen 10 8 - 18 mg/dL [facility] Creatinine 0.64(L) 0.70 - 1.20 mg/dL [facility] Sodium 137 135 - 145 mmol/L [facility] Potassium 4.4 3.5 - 5.0 mmol/L [facility] Comment: Please note: ??Patients with WBC >100,000 may have falsely elevated Potassium levels. ??For accurate Potassium quantification in these patients send serum separator tube (gold top) for subsequent determinations. ??Contact the Clinical Chemistry Laboratory if there are any questions. Chloride 101 98 - 107 mmol/L [facility] Carbon Dioxide 23 22 - 31 mmol/L [facility] Anion Gap 13 5 - 15 mmol/L [facility] Calcium 8.7 8.5 - 10.5 mg/dL [facility] Est Glomerular Filtration Rate 107 >=60 mL/min/1. 73 m?? [facility] Comment: This patient? s estimated [...] MD CHEMISTRY OR DERABLES Performing Organization Address City/[facility]/ZIP Co de Phone Number [facility] [place] [address] * (ABNORMAL) pro-Brain Natriuretic Peptide (01/02/2022 10:43 AM EST) NT-proBNP 140(H) <=124 pg/mL [facility] Blood 01/02/2022 10:4 3 AM EST 01/02/2022 10:52 AM EST Narrative Resulting Agency Comment Spec In Lab Alla Richardson MD CHEMISTRY OR DERABLES Performing Organization Address [facility]/ZIP Co de Phone Number [facility] [place] [address] * CK (01/02/2022 10:43 AM EST) Creatine Kinase 32 0 - 160 unit/L [facility] Blood 01/02/2022 10:4 3 AM EST 01/02/2022 10:52 AM EST Narrative Resulting Agency Comment Spec In Lab Alla Richardson MD CHEMISTRY OR DERABLES [facility] [place] [address] documented in this encounter Visit Diagnoses Diagnosis HFrEF (heart failure with reduced ejection fraction) documented in this encounter Care Teams Clinical Operations Manager Relationship Specialty Start Date End Date Edie Ellis MD [facility] [address] [place] [address] PCP - General 10/15/10 documented as of this encounter
--- OUTSIDE RECORDS SUMMARY | 2024-08-15 17:00 | XMS_ITS | Encounter Summary ---
Author Organization [facility] [place] [address] Care Team Providers Care Steel Loader Name Role Phone Edie Ellis MD Primary Care Provider [phone] Encounter Details Date Type Department Care Team (Late Contact Info) Description 08/05/2022 Telephone Neurology at [facility] [place] [phone] Kieran Harkins MD [place] [address] Social History Tobacco Use Types Packs/Day Years [...] 11:00 AM EST Appointment XRay at [address] [place] [phone] 10/05/2024 1:10 PM [place] [address] Pricilla Finney MD [facility] [place] [address] 10/05/2024 1:10 PM [place] [address] Pricilla Finney MD [facility] [place] [address] 10/07/2024 10:00 AM EST Hospital Encounter Non-[place] [address] Arrived documented as of this encounter Visit Diagnoses Not on filedocumented in this encounter Care Teams Steel Loader Relationship Specialty Start Date End Date Edie Ellis MD [facility] [address] [place] [address] PCP - General 10/15/10 documented as of this encounter
--- OUTSIDE RECORDS SUMMARY | 2024-08-15 17:01 | XMS_ITS | Encounter Summary ---
Author Organization [facility] [place] [address] Care Team Providers Care Pet Crematory Worker Name Role Phone Edie Ellis MD Primary Care Provider [phone] Encounter Details Date Type Department Care Team (Late st Contact Info) Description 09/02/2013 Telephone Cardiology at [address] [phone] Zaina Adkins CMA Social History Tobacco Use [...] 11:00 AM EST Appointment XRay at [address] [place] [address] 10/05/2024 1:10 PM EST Appointment MRI at [place] [phone] Pricilla Finney MD [facility] [address] 10/05/2024 1:10 PM [place] [address] Pricilla Finney MD [facility] [place] [address] 10/07/2024 10:00 AM EST Hospital Encounter Non-[place] [phone] Arrived documented as of this encounter Visit Diagnoses Not on filedocumented in this encounter Care Teams Pet Crematory Worker Relationship Specialty Start Date End Date Edie Ellis MD [address] [place] [address] PCP - General 10/15/10 documented as of this encounter
--- OUTSIDE RECORDS SUMMARY | 2024-08-15 17:01 | XMS_ITS | Encounter Summary ---
Author Organization [facility] Address [facility] [place] [address] Care Team Providers Care Removable Prosthodontist Name Role Phone Edie Ellis MD Primary Care Provider [phone] Encounter Details Date Type Department Care Team (Late st Contact Info) Description 09/06/2013 Orders Only Cardiology at [address] [phone] Kika David PA [facility] [address] [place] [address] Cardiomyopathy (Primary Dx) Social History Tobacco Use [...] 11:00 AM EST Appointment XRay at [address] [place] [address] 10/05/2024 1:10 PM EST Appointment MRI at [place] [phone] Pricilla Finney MD [facility] [place] [address] 10/05/2024 1:10 PM [place] [address] Pricilla Finney MD [facility] [place] [address] 10/07/2024 10:00 AM EST Hospital Encounter Non-Invasive [place] [phone] Arrived documented as of this encounter Procedures [...] cardiomyopathies documented in this encounter Care Teams Removable Prosthodontist Relationship Specialty Start Date End Date Edie Ellis MD [address] [place] [address] PCP - General 10/15/10 documented as of this encounter
--- OUTSIDE RECORDS SUMMARY | 2024-08-15 17:01 | XMS_ITS | Encounter Summary ---
Author Organization [facility] Address [facility] [address] Care Team Providers Care Shop Foreman Name Role Phone Edie Ellis MD Primary Care Provider [phone] Reason for Referral * Consultation (Routine) - [...] to see. She sees Dr Eid at [facility]. This seems confusing that we would get a referral. Thanks! Vani Evangelista MD [facility] [place] [address] Alla Nahs MD [facility] [place] [address] Referral ID Status Reason Start Date Expiration Date V isits Requested Visits Authorized [id number] Closed Consult, Test & Treat 07/01/2021 07/01/2022 1 1 Reason for Visit * Reason Comments Shortness of Breath Dizziness Encounter Details Date Type Department Care Team ([facility] Contact Info) Description 07/01/2021 9:26 AM EDT - 07/01/2021 1:38 PM EDT Emergency Emergency Department [facility] [place] [address] Fior Little MD [facility] DR [place]ERGENCY [place] [address] SOB (shortness of breath) Discharge Disposition: Home [...] a day 03/12/2015 naloxone (Narcan) 4 mg/actuation Allen, Non-Aerosol Once 03/10/2019 magnesium oxide (MAG-OX) 400 [...] cardiomyopathy, CHF, A. fib [facility] chest tightness and lightheadedness. Symptoms started last night with chest tightness, leg swelling and shortness of breath. This morning she woke up with a headache and some lightheadedness. She came to [facility] for blood work where she was extremely [...] pneumonia, electrolyte abnormality ACS-has a history of AR. Troponin negative and EKG shows no signs [...] per day. BNP is elevated to 666. [id number] has been partially vaccinated. Receiving her first [...] 10/05/2024 11:00 AM EST Appointment XRay at [address] [place] [address] 10/05/2024 1:10 PM [place] [address] Pricilla Finney MD [facility] [place] [address] 10/05/2024 1:10 PM [place] [address] Pricilla Finney MD [facility] [place] [address] 10/07/2024 10:00 AM EST Hospital Encounter Non-[place] [phone] Arrived Scheduled Orders Name Type Priority Associated [...] 07/01/2021 9:59 AM EDT RAPID COVID-19 PCR ([facility]) STAT 07/01/2021 9:59 AM EDT documented in [...] who have questions please contact the health patient care coordinator that requested your imaging first. ? Narrative [...] patients who have questions please contactthe health patient care coordinator that requested your imaging first. Fior Little [...] Lab Fior Little MD HEMATOLOGY ORDERABL ES [facility] [place] [address] * Abraham Tube Hold (07/01/2021 10:00 AM EDT) Abraham Hold Sample in lab. [facility] Blood Venous Draw / Unknown 07/01/2021 10:00 AM EDT 07/01/2021 10:11 AM EDT Vani Evangelista MD CHEMISTRY ORDERAB LES [facility] [place] [address] * Gold Tube HOLD (07/01/2021 10:00 AM EDT) Gold Hold Sample in lab. [facility] Blood Venous Draw / Unknown 07/01/2021 10:00 AM EDT 07/01/2021 10:10 AM EDT Vani Evangelista MD CHEMISTRY ORDERAB LES Performing Organization Address City/[facility]/[place] [address] * Blue Tube HOLD (07/01/2021 10:00 AM EDT) Pathologist [facility] Blue Hold Sample in lab. [facility] Blood Venous Draw / Unknown 07/01/2021 10:00 AM EDT 07/01/2021 10:10 AM EDT Vani Evangelista MD HEMATOLOGY ORDERA BLES Performing Organization Address [facility] [place] [place] [address] * Differential, Automated (07/01/2021 10:00 AM EDT) [facility] Neutrophil % 56.0 % [facility] Neutrophil Absolute 4.88 1.70 - 6.10 x10(3)/[facility] LABORATORY Lymph % 33.6 % [facility] Lymphocytes Abs 2.9 0.9 - 3.2 x10(3)/[facility] LABORATORY Monocyte % 4.5 % [facility] Monocyte Abs 0.4 0.3 - 0.9 x10(3)/[facility] LABORATORY Eos % 4.7 % [facility] Eosinophils Abs 0.4 0.0 - 0.4 x10(3)/[facility] LABORATORY Basophil % 1.0 % [facility] Baso Absolute 0.1 0.0 - 0.1 x10(3)/[facility] LABORATORY Immature Gran % 0.20 % [facility] Comment: Immature granulocytes(IG's)percentage and absolute count will include metamyelocytes, myelocytes, and promyelocytes. Blood smears from CBCs yielding IG's will be scanned manually for concordance. If this scan disagrees with the automated IG or if promyelocytes are noted, a manual differential will be performed. Immature Gran Absolute 0.02 0.00 - 0.04 x10(3)/mcL [facility] Blood 07/01/2021 10:0 0 AM EDT 07/01/2021 10:09 AM EDT Narrative Resulting Agency Comment Spec In Lab Vani Evangelista MD HEMATOLOGY ORDERA BLES [facility] [place] [address] * (ABNORMAL) Hemogram (07/01/2021 10:00 AM EDT) White Blood Cell 8.7 4.0 - 9.5 x10(3)/mc L [facility] Red Blood Cell 4.33 4.00 - [...] HOSPITAL LABORATORY Platelet 183 145 - 357 x10(3)/ L [facility] RDW Standard Deviation 46.7(H) 37.0 - 46.0 [facility]ATORY RDW coefficient of variation 14.1 11.5 - 14.1 % [facility] Mean Platelet Volume 10.6 7.6 - 12.9 [facility]ORATORY NRBC% auto 0.0 % [facility] NRBC Absolute 0.000 0.000 - 0.000 x10(3)/mc L [facility] Blood 07/01/2021 10:0 0 AM EDT 07/01/2021 10:09 AM EDT Narrative Resulting Agency Comment Spec In Lab Vani Evangelista MD HEMATOLOGY ORDERA BLES [facility] [place] [address] * (ABNORMAL) pro-Brain Natriuretic Peptide (07/01/2021 10:00 AM EDT) NT-proBNP 666(H) <=124 pg/mL [facility] Blood 07/01/2021 10:0 0 AM EDT 07/01/2021 10:09 AM EDT Narrative Resulting Agency Comment Spec In Lab Fior Little MD CHEMISTRY ORDERABLE S Performing Organization Address [facility]/ZIP Co de Phone Number [facility] [place] [address] * Troponin (07/01/2021 10:00 AM EDT) Troponin-T <0.01 0.00 - 0.00 ng/mL [facility] Comment: The 99th percentile for Troponin T is less than 0.01 ng/mL, any detectable cTnT concentration using this assay should be considered elevated. According to the third universal definition of myocardial infarction the following criteria with a clinical presentation consistent with acute myocardial ischemia meets the diagnosis for a myocardial infarction (AR). Detection of a rise and/or fall of cTnT, with at least one value greater than the 99th percentile (> or = 0.01) and with at least one of the following ?? Symptoms of ischemia ?? New or presumed new significant GJ-[id number]-L wave (ST-T) changes or new left bundle [...] additional sample may be indicated. Reference: [employer] Definition of Myocardial Infarction. Journal of the [place] [employer] 2012;60:1581-98 Blood 07/01/2021 10:0 0 AM EDT 07/01/2021 10:09 AM EDT Narrative Resulting Agency Comment Spec In Lab Fior Little MD CHEMISTRY ORDERABLE S [facility] [place] [address] * Basic Metabolic Panel (non-fasting) (07/01/2021 10:00 AM EDT) Glucose 121 65 - 199 mg/dL [facility] [...] MD CHEMISTRY ORDERABLE S Performing Organization Address City/[facility] Co de Phone Number [facility] [place] [address] * EKG 12 Lead (07/01/2021 9:59 AM EDT) Pathologist [facility] Ventricular rate 75 BPM MUSE SYSTEM Atrial Rate 75 BPM MUSE SYSTEM P-R Interval 180 ms MUSE SYSTEM QRS Duration 70 ms MUSE SYSTEM Q-T Interval 420 ms MUSE SYSTEM QTC Calculated (Bezet) 469 ms MUSE SYSTEM Calculated P Latta 9 degrees MUSE SYSTEM Calculated R Latta -5 degrees MUSE SYSTEM Calculated T Latta 18 degrees MUSE SYSTEM INTERPRETATION Normal sinus rhythm Low voltage QRS Low septal forces Poor R-wave progression Abnormal ECG When compared with ECG of 07-SEP-2013 09:28, No significant change was found Confirmed by Rainer Nova MD ([id number]) on 07/01/2021 12:26:28 PM MUSE SYSTEM 07/01/2021 9:59 AM EDT 07/01/2021 12:26 PM EDT Fior Little MD ECG ORDERABLES Performing Organization Address [facility] Co de Phone Number MUSE SYSTEM * COVID-19 PCR (07/01/2021 9:59 AM EDT) [facility] SARS-CoV-2 RNA (Rapid) Not Detected Not Detected [...] using the Simplexa COVID-19 Direct Assay by [employer] as authorized by the FDA issued Emergency [...] Department of Pathology and Laboratory Medicine at [facility], certified under the Clinical Laboratory Improvement Amendments [...] fact sheets at the following FDA website: https://www.fda.gov/medical-devices/igamkbciwcc-hgunyea-6446-kwgtg-39-tspkomcft- use-a rgkvtkjpqnfjl-zeogbrc-ifgpuin/utlis-pykjoklqnbf-mjdu SARS-CoV-2 Source [employer] ARCHITECT Swab [facility] Nasopharyngeal Swab 07/01/20 9:59 AM EDT 07/01/2021 10:52 AM EDT Comment:Symptoms->COVID-19 S uspected Narrative Resulting Agency Comment Spec In Lab Fior Little MD MICROBIOLOGY - [facility] [place] [address] documented in this encounter Visit Diagnoses Diagnosis SOB (shortness of breath) Shortness of breath documented in this encounter Additional Health Concerns Infection Onset Date Last Indicated Resolved Time Rule Out COVID-19 07/01/2021 07/01/2021 07/01/2021 12:54 PM EDT documented as of this encounter Care Teams Shop Foreman Relationship Specialty Start Date End Date Edie Ellis MD [address] [facility] [address] [place] [address] PCP - General 10/15/10 documented as of this encounter
--- OUTSIDE RECORDS SUMMARY | 2024-08-15 17:01 | XMS_ITS | Encounter Summary ---
Author Organization [facility] [place] [address] Care Team Providers Care Cook Manager Name Role Phone Edie Ellis MD Primary Care Provider [phone] Encounter Details Date Type Department Care Team (Latest Contact Info) Description 06/17/2021 8:00 AM EDT Laboratory Appointment Lab [address] [place] [address] Other cardiomyopathy; ASCVD (arteriosclerotic cardiovascular disease); AMARO [...] 11:00 AM EST Appointment XRay at [address] [place] [phone] 10/05/2024 1:10 PM [place] [address] Pricilla Finney MD [facility] [place] [address] 10/05/2024 1:10 PM [place] [address] Lee AnntPricilla MD [facility] [place] [address] 10/07/2024 10:00 AM EST Hospital Encounter Non-Invasive Cardiology Lab [facility] [place] [address] Arrived documented as of this [...] AM EDT) LDL Cholesterol, Direct 60 mg/dL [facility] Comment: Lowest Risk: <100 mg/dL Lower Risk: 100-129 mg/dL Borderline High Risk: 130-159 mg/dL High Risk: 160-189 mg/dL Very High Risk: >xc=535 mg/dL Blood 06/17/2021 8:09 AM EDT 06/17/2021 8:20 AM EDT Narrative Resulting Agency Comment Spec In Lab Andreina David APRN CHEMISTRY ORDERABLES [facility] [place] [address] * (ABNORMAL) Differential, Automated (06/17/2021 8:09 AM EDT) Neutrophil % 54.2 % [facility] Neutrophil Absolute 5.65 1.70 - 6.10 x10(3)/ L [facility] Lymph % 32.2 % [facility] Lymphocytes Abs 3.4(H) 0.9 - 3.2 x10(3)/ L [facility] Monocyte % 5.2 % [facility] Monocyte Abs 0.5 0.3 - 0.9 x10(3)/ L [facility] Eos % 6.8 % [facility] Eosinophils Abs 0.7(H) 0.0 - 0.4 x10(3)/ L [facility] Basophil % 1.3 % [facility] Baso Absolute 0.1 0.0 - 0.1 x10(3)/mc L [facility] Immature Gran % 0.30 % [facility] Comment: Immature granulocytes(IG's)percentage and absolute count will include metamyelocytes, myelocytes, and promyelocytes. Blood smears from CBCs yielding IG's will be scanned manually for concordance. If this scan disagrees with the automated IG or if promyelocytes are noted, a manual differential will be performed. Immature Gran Absolute 0.03 0.00 - 0.04 x10(3)/mc L [facility] Blood 06/17/2021 8:09 AM EDT 06/17/2021 8:17 AM EDT Narrative Resulting Agency Comment Spec In Lab Andreina David APRN HEMATOLOGY ORDERABLE S Performing Organization Address City/State/[facility] Co de Phone Number [facility] [place] [address] * (ABNORMAL) Hemogram (06/17/2021 8:09 AM EDT) White Blood Cell 10.4(H) 4.0 - 9.5 x10(3)/mc L [facility] Red Blood Cell 5.12 4.00 - 5.21 x10(6)/mc L [facility] Hemoglobin 15.0 11.7 - 15.5 gm/dL [facility] Hematocrit 46.7(H) 35.7 - 45.8 % [facility] Mean Cell Volume 91.2 82.6 - 94.4 fL [facility] Mean Cell Hemoglobin 29.3 27.1 - 32.0 pg [facility] Mean Cell Hemoglobin Concentration 32.1 31.7 - 35.0 gm/dL [facility] Platelet 256 145 - 357 x10(3)/mc L [facility] RDW Standard Deviation 48.0(H) 37.0 - 46.0 fL [facility] RDW coefficient of variation 14.5(H) 11.5 - 14.1 % [facility] Mean Platelet Volume 10.6 7.6 - 12.9 fL [facility] NRBC% auto 0.0 % [facility] NRBC Absolute 0.000 0.000 - 0.000 x10(3)/mc L [facility] Blood 06/17/2021 8:09 AM EDT 06/17/2021 8:17 AM EDT Narrative Resulting Agency Comment Spec In Lab Andreina David APRN HEMATOLOGY ORDERABLE S [facility] [place] [address] * Comprehensive metabolic panel (non-fasting) (06/17/2021 8:09 AM EDT) Glucose 189 65 - 199 mg/dL [facility] Comment:Diabetes: >=200 mg/d L plus symptoms Blood Urea Nitrogen 14 8 - 18 mg/dL [facility] Creatinine 0.72 0.70 - 1.20 mg/dL [facility] Sodium 137 135 - 145 mmol/L [facility] Potassium 4.0 3.5 - 5.0 mmol/L [facility] Comment: Please note: ??Patients with WBC >100,000 may have falsely elevated Potassium levels. ??For accurate Potassium quantification in these patients send serum separator tube (gold top) for subsequent determinations. ??Contact the Clinical Chemistry Laboratory if there are any questions. Chloride 99 98 - 107 mmol/L [facility] Carbon Dioxide 26 22 - 31 mmol/L [facility] Anion Gap 12 5 - 15 mmol/L [facility] Calcium 9.2 8.5 - 10.5 mg/dL [facility] Protein, Total 7.4 6.1 - 8.0 gm/dL [facility] Albumin 4.6 3.2 - 5.2 gm/dL [facility] Aspartate Aminotransferase 26 0 - 30 unit/L [facility] Alanine Aminotransferase 23 0 - 30 unit/L [facility] Alkaline Phosphatase 62 35 - 105 unit/L [facility] Bilirubin, Total 0.3 0.2 - 1.3 mg/dL [facility] Est Glomerular Filtration Rate 100 >=60 mL/min/1. 73 m?? [facility] Comment: This patient? s estimated [...] David APRN CHEMISTRY ORDERABLES Performing Organization Address City/[facility]/ZIP Co de Phone Number [facility] [place] [address] * pro-Brain Natriuretic Peptide (06/17/2021 8:09 AM EDT) NT-proBNP 79 <=124 pg/mL [facility] Blood 06/17/2021 8:09 AM EDT 06/17/2021 8:17 AM EDT Narrative Resulting Agency Comment Spec In Lab Andreina David APRN CHEMISTRY ORDERABLES Performing Organization Address [facility] Co de Phone Number [facility] [place] [address] * TSH (06/17/2021 8:09 AM EDT) Thyroid Stimulating Hormone 0.85 0.27 - 4.20 mcIU/mL [facility] Comment: Reference Interval (mcIU/mL): Females: ??First Trimester: 0.23-3.88 ??Second Trimester: 0.22-3.90 ??Third Trimester: 0.44-4.66 Blood 06/17/2021 8:09 AM EDT 06/17/2021 8:17 AM EDT Narrative Resulting Agency Comment Spec In Lab Andreina David APRN CHEMISTRY ORDERABLES [facility] [place] [address] * Lipid Panel (Reflex Direct LDL) (06/17/2021 8:09 AM EDT) Cholesterol, Total 144 mg/dL [facility] Comment: Lower Risk: <200 mg/dL Average Risk: 200-239 mg/dL Higher Risk: >jb=758 mg/dL Triglyceride 489 mg/dL [facility] Comment: Average Risk/Lower Risk: <150 mg/dL Borderline High Risk: 150-199 mg/dL High Risk: 200-499 mg/dL Very High Risk: >gr=087 mg/dL HDL Cholesterol 30 mg/dL [facility] Comment: Males: ?? Higher Risk: <40 mg/dL Females: ?? Higher Risk: <50 mg/dL LDL Cholesterol Not Calculated [facility] Comment: Lowest Risk: <100 mg/dL Lower Risk: 100-129 mg/dL Borderline High Risk: 130-159 mg/dL High Risk: 160-189 mg/dL Very High Risk: >dk=097 mg/dL Calculated LDL value is not valid for triglycerides greater than 400 mg/dl.06/17/21 08:56 Cholesterol/HDL Ratio 4.8 ratio [facility] Lipid Interpretation See Note [facility] Comment: Lipid management should be guided by a patient? s ASCVD risk, goals and preferences. ACC/AHA Guidelines recommend high intensity statin if clinical ASCVD or LDL greater than or equal to 190 mg/dL. http://Q-Layerurl.com/EJG-WLG-Inqhwtgez Adults aged 40-75 with LDL 70-189 mg/dL should have their 10 year ASCVD risk estimated with the ACC/AHA ASCVD risk hurricane tracker http://tools.acc.org/KCAOG-Orkx-Rjgzpqtde/ Statin should be discussed if risk greater [...] David APRN CHEMISTRY ORDERABLES Performing Organization Address City/State/[facility] Co de Phone Number [facility] [place] [address] documented in this encounter Visit Diagnoses Diagnosis Other cardiomyopathy ASCVD (arteriosclerotic cardiovascular disease) Unspecified cardiovascular disease AMARO (dyspnea on exertion) Other dyspnea and respiratory abnormality documented in this encounter Care Teams Cook Manager Relationship Specialty Start Date End Date Edie Ellis MD [facility] [address] [place] [address] PCP - General 10/15/10 documented as of this encounter
--- OUTSIDE RECORDS SUMMARY | 2024-08-15 17:01 | XMS_ITS | Encounter Summary ---
Author Organization [facility] Address [facility] [place] [address] Care Team Providers Care Sole Assessor Name Role Phone Edie Ellis MD Primary Care Provider [phone] Reason for Visit * Consultation (Routine) - [...] to see. She sees Dr Eid at [facility]. This seems confusing that we would get a referral. Thanks! Vani Evangelista MD [facility] [place] [address] Alla Nash MD [facility] [place] [id number] Referral ID Status Reason Start Date Expiration Date V isits Requested Visits Authorized [id number] Closed Consult, Test & Treat 07/01/2021 07/01/2022 1 1 Encounter Details Date Type Department Care Team ([facility] Contact Info) Description 08/16/2021 10:40 AM EDT Office Visit Cardiology at [address] [address] Kina Awad PA [facility] [place] [address] HFrEF (heart failure with reduced ejection fraction); [...] [facility] [place] Section of Advanced Heart Failure Cardiology [facility] [place] [id number] OUTPATIENT VISIT DATE: 06/09/21 OUTPATIENT VISIT TYPE: [...] syncopal event Aug 2020, admitted to [facility]. Loss of urine. Placed on [...] mouth daily. ??? Lancets Misc by [facility].(Non-Drug; Combo Route) route daily. ??? Miscellaneous Medical Supply Mis 1 strip by [facility].(Non-Drug; Combo Route) route daily. [...] Diuretic Lasix 20 mg daily ICD or MOLDER MACHINE TENDER-D if indicated Not indicated with LVEF [...] 11:00 AM EST Appointment XRay at [address] [place] [address] 10/05/2024 1:10 PM [place] [address] Pricilla Finney MD [facility] [place] [place] [address] 10/05/2024 1:10 PM [place] [address] Pricilla Finney MD [facility] [place] [address] 10/07/2024 10:00 AM EST Hospital Encounter Non-In[place] [address] Arrived documented as of this encounter Results * pro-Brain Natriuretic Peptide (08/16/2021 9:45 AM EDT) Pathologist [facility] NT-proBNP 34 <=124 pg/mL [facility] Blood 08/16/2021 9:45 AM EDT 08/16/2021 10:01 AM EDT Narrative Resulting Agency Comment Spec In Lab Alla Richardson MD CHEMISTRY OR DERABLES [facility] [place] [address] * (ABNORMAL) Basic Metabolic Panel (non-fasting) (08/16/2021 9:45 AM EDT) Glucose 122 65 - 199 mg/dL [facility] Comment:Diabetes: >=200 mg/d L plus symptoms Blood Urea Nitrogen 12 8 - 18 mg/dL [facility] Creatinine 0.66(L) 0.70 - 1.20 mg/dL [facility] Sodium 135 135 - 145 mmol/L [facility] Potassium 4.6 3.5 - 5.0 mmol/L [facility] Comment: Please note: ??Patients with WBC >100,000 may have falsely elevated Potassium levels. ??For accurate Potassium quantification in these patients send serum separator tube (gold top) for subsequent determinations. ??Contact the Clinical Chemistry Laboratory if there are any questions. Chloride 98 98 - 107 mmol/L [facility] Carbon Dioxide 28 22 - 31 mmol/L [facility] Anion Gap 9 5 - 15 mmol/L [facility] Calcium 9.5 8.5 - 10.5 mg/dL [facility] Est Glomerular Filtration Rate 106 >=60 mL/min/1. 73 m?? [facility] Comment: This patient? s [...] Lab Alla Richardson MD CHEMISTRY OR DERABLES [facility] [place] [address] documented in this encounter Visit Diagnoses Diagnosis HFrEF (heart failure with reduced ejection fraction) Cardiomyopathy, unspecified type documented in this encounter Care Teams Sole Assessor Relationship Specialty Start Date End Date Edie Ellis MD [address] [place] [address] PCP - General 10/15/10 documented as of this encounter
--- OUTSIDE RECORDS SUMMARY | 2024-08-15 17:01 | XMS_ITS | Encounter Summary ---
Author Organization [facility] [place] [address] Care Team Providers Care Order Desk Clerk Name Role Phone Edie Ellis MD Primary Care Provider [phone] Encounter Details Date Type Department Care Team (Late st Contact Info) Description 09/07/2013 9:00 AM EDT - 09/07/2013 10:00 AM EDT [place] [address] Suhas Tavares MD [facility] [place] [address] CARDIAC CATHETERIZATION Social History Tobacco Use Types [...] by your doctor, do not take any mbro-wvz-rukaeag medicines or herbal preparations without first discussing this with your doctor or pharmacist. There is the possibility of side effect and interactions when these are combined. Follow up Care Who to Call with Questions or Problems If there are any questions or problems that you think might be related to your cardiac cath or angioplasty, contact the canteen operator manager combination by calling [facility] at . documented in this encounter [...] hours as needed. 04/29/2014 Lancets Misc by [facility]Non-Drug; Combo Route) route daily. 06/17/2021 Miscellaneous Medical Supply [facility] 1 strip by [facility].(Non-Drug; Combo Route) route daily. 06/17/2021 clonAZEpam (KLONOPIN) [...] the Treatment of Subjects with de daniel [place] Coronary Artery Lesions PI: Jonathan Silva MD Pager #:[phone] Research Coordinators: Hemant Muniz, BS, BA, TOWBOAT PILOT Pager #:[phone] Santos Quach, CHARLY Pager #: [phone] Purpose: The pivotal trial to support the [place] pre-market approval (PMA) of Absorb BVS. ABSORB III will evaluate the safety and effectiveness of the Absorb BVS System compared to the XIENCE in the treatment of subjects, including those with diabetes mellitus, with ischemic heart disease caused by up to two denovo [place] coronary artery lesions in separate epicardial vessels. [...] Target lesion(s) must be located in a [place] coronary artery with a visually estimated or quantitatively assessed %DS of >= 50% and < 100% with a TONYA flow of >= 1 and one of the following: stenosis >= 70%, an abnormal functional test (e.g., fractional flow reserve, stress test), unstable angina or post-infarct angina. a. Lesion(s) must be located in a [place] coronary artery with RVD by visual estimation of >= 2.50 mm and <= 3.75 mm. b. Lesion(s) must be located in a [place] coronary artery with length by visual estimation of <= 24 mm. Angiographic Exclusion Criteria: 1. Lesion which prevents successful balloon pre-dilatation, defined as full balloon expansion with the following outcomes: - Residual %DS is a maximum < 40% (per visual estimation), <= 20% is strongly recommended. -TONYA Grade-3 flow [...] a bifurcation with a: a. side branch >= 2 mm in diameter, or b. side branch with either an ostial or non-ostial lesion with diameter stenosis > 50%, or c. side branch requiring pre-dilatation or protection guide wire 6. Anatomy proximal to or within the lesion that may impair delivery of the Absorb BVS or XIENCE stent: b. Extreme angulation (>= 90??) proximal to or within the target lesion. c. Excessive tortuosity (>= two 45?? angles) proximal to or within the target lesion. d. Moderate or heavy calcification proximal to or within the target lesion. If IVUS used, subject must be excluded if calcium ARC in the vessel prior to the lesion or within the lesion is >= 180??. 7. Vessel contains thrombus as indicated [...] the Treatment of Subjects with de daniel [place] Coronary Artery Lesions PI: Jonathan Silva MD Pager #:[phone] Research Coordinators: Hemant Muniz, BS, BA, TOWBOAT PILOT Pager #:[phone] Snatos Quach RN Pager #: [phone] Purpose: The pivotal trial to support the [place] pre-market approval (PMA) of Absorb BVS. ABSORB III will evaluate the safety and effectiveness of the Absorb BVS System compared to the XIENCE in the treatment of subjects, including those with diabetes mellitus, with ischemic heart disease caused by up to two denovo [place] coronary artery lesions in separate epicardial vessels. [...] proceed to cath. Luke Luevano MD Pager [phone] Websphere Commerce Developer documented in this encounter Procedure Notes * Provider, Scanning - 09/07/2013 7:22 PM EDTAssociated Order(s): SCAN DOC: CARDIAC CATH documented in this encounter Miscellaneous Notes * Miscellaneous - Provider, Scanning - 09/07/2013 7:22 PM EDT * Miscellaneous - Provider, Scanning - 09/07/2013 3:29 PM EDT * Discharge Summary - Suhas Tavares MD - 09/07/2013 11:44 AM EDT [facility] SAME DAY DISCHARGE SUMMARY Jammie Gottlieb 09/07/2013 Primary Care Provider: EDIE ELLIS MD Referring Mysql Dba: Taurus Menjivar MD Procedures: Left heart catheterization, [...] 10/05/2024 11:00 AM EST Appointment XRay at [address] [place] [address] 10/05/2024 1:10 PM [place] [address] Pricilla Finney MD [facility] [place] [address] 10/05/2024 1:10 PM EST Appointment MRI at [facility] [place] [address] Pricilla Finney MD [facility] [place] [address] 10/07/2024 10:00 AM EST Hospital Encounter Non-Invasive Cardiology Lab Count Includes [facility] [address] Arrived documented as of this encounter [...] (Bezet) 469 ms MUSE SYSTEM Calculated P [place] 14 degrees MUSE SYSTEM Calculated R [place] 7 degrees MUSE SYSTEM Calculated T [place] 13 degrees MUSE SYSTEM INTERPRETATION Normal sinus rhythm Normal ECG When compared with ECG of 19-DEC-2009 12:47, No significant change was found Confirmed by Rainer Nova MD ([id number]) on 09/09/2013 8:09:14 AM MUSE SYSTEM 09/07/2013 9:28 AM EDT 09/09/2013 8:09 AM EDT Jonathan Tapia MD ECG ORDERABLES [employer] SYSTEM documented in this encounter Visit Diagnoses Diagnosis Cardiomyopathy Other primary cardiomyopathies CAD (coronary artery disease) Coronary atherosclerosis of unspecified type of vessel, [place] or graft Cardiomyopathy Other primary cardiomyopathies documented [...] RN) documented in this encounter Care Teams Order Desk Clerk Relationship Specialty Start Date End Date Edie Ellis MD [address] [place] [address] PCP - General 10/15/10 documented as of this encounter
--- OUTSIDE RECORDS SUMMARY | 2024-08-15 17:01 | XMS_ITS | Encounter Summary ---
[place] [address] Care Team Providers Care Box Cutter Name Role Phone Edie Ellis MD Primary Care Provider [phone] Reason for Referral * Diagnostic Test (Routine) - Closed Specialty Diagnoses / Procedures Referred By Contac t Referred To Contact Radiology Diagnoses Cardiomyopathy, unspecified type Procedures MRI Cardiac Morphology Function o Nikhil Huntley MD [address] [place] [address] [place] [address] [place] [address] Referral ID Status Reason Start Date Expiration Date V isits Requested Visits Authorized [id number] Closed Specialty Service Requested 04/04/2021 10/05/2022 1 1 Reason for Visit * Diagnostic Test (Routine) - Closed Specialty Diagnoses / Procedures Referred By Contac t Referred To Contact Radiology Diagnoses Cardiomyopathy, unspecified type Procedures MRI Cardiac Morphology Function eduardo Nikhil Huntley MD [address] [place] [address] [facility] [place] [address] [place] [address] Referral ID Status Reason Start Date Expiration Date V isits Requested Visits Authorized [id number] Closed Specialty Service Requested 04/04/2021 10/05/2022 1 1 Encounter Details Date Type Department Care Team (Latest Contact Info) Description 05/08/2021 8:47 AM EDT - 05/08/2021 11:59 PM EDT Hospital Encounter MRI at [facility] [place] [address] Nikhil Eid MD [address] [place] [address] [place] [address] Cardiomyopathy, unspecified type Discharge Disposition: Home Social [...] a day 03/12/2015 naloxone (Narcan) 4 mg/actuation Orrum, Non-Aerosol Once 03/10/2019 magnesium oxide (MAG-OX) 400 [...] by mouth daily. 06/17/2021 Lancets Misc by [facility].(Non-Drug; Combo Route) route daily. 06/17/2021 Miscellaneous Medical Supply Misc 1 strip by [facility].(Non-Drug; Combo Route) route daily. 06/17/2021 [...] 11:00 AM EST Appointment XRay at [address] [place] [address] 10/05/2024 1:10 PM [place] [address] Pricilla Finney MD [facility] [place] [address] 10/05/2024 1:10 PM [place] [address] Pricilla Finney MD [facility] [place] [address] 10/07/2024 10:00 AM EST Hospital Encounter Non[place] [address] Arrived documented as of this encounter Procedures [...] who have questions please contact the health medical care manager that requested your imaging first. [...] seen on the prior outside CT from 2016). QUANTITATIVE DATA: LEFT VENTRICLE: LV Mass: 123 [...] also already seen on the prior outside CTfrom 2016). QUANTITATIVE DATA: LEFT VENTRICLE: LV Mass: 123 [...] patients who have questions please contactthe health medical care manager that requested your imaging first. Nikhil Eid [...] mLs documented in this encounter Care Teams Box Cutter Relationship Specialty Start Date End Date Edie Ellis MD [address] [place] [address] PCP - General 10/15/10 documented as of this encounter
--- OUTSIDE RECORDS SUMMARY | 2024-08-15 17:01 | XMS_ITS | Encounter Summary ---
Author Organization Formerly [facility] Address [facility] [place] [address] Care Team Providers Care Audit Specialist Name Role Phone Edie Ellis MD Primary Care Provider Encounter Details Date Type Department Care Team (Latest Contact Info) Description 09/06/2021 7:13 AM EDT - 09/06/2021 3:02 PM EDT Hospital En[place] [address] Justino Washburn MD [facility] [place] [address] HFrEF (heart failure with reduced ejection fraction); [...] by your doctor, do not take any tmoo-ipa-kbhowol medicinesor herbal preparations without first discussing this with your doctor or pharmacist. There is the possibility of side effects and interactions when these are combined. Follow Up Care Who to call with questions or problems If there are any questions or problems that you think might be related to your cardiac cath or angioplasty, contact the webmethods architect race relations adviser by calling [facility] at . documented in this encounter Medications [...] a day 03/12/2015 naloxone (Narcan) 4 mg/actuation [place], Non-Aerosol Once 03/10/2019 magnesium oxide (MAG-OX) 400 [...] without complication, unspecified whether assisted insulin use Take 10 mg by mouth [...] QTC Calculated (Bezet) 469 ms Calculated P Callao 9 degrees Calculated R Callao -5 degrees Calculated T Callao 18 degrees INTERPRETATION Normal sinus rhythm Low [...] the original note were not included. Formerly [facility] [place] [address] CORONARY ANGIOGRAM AND PERCUTANEOUS CORONARY INTERVENTION REPORT Patient: Jammie Gottlieb : 1975 MR number: [id number] Date of Service: 09/06/2021 Public Relations Writer: Justino Washburn MD Fellow: Femi Koroma MD [...] obtained. The patient was brought to the laboratory chemist and placed onthe table. Time out was [...] no procedural complications. ??? I provided direct qwns-jc-[id number] monitoring of conscious sedation which was administered [...] 10/05/2024 11:00 AM EST Appointment XRay at [address] [place] [address] 10/05/2024 1:10 PM [place] [address] Pricilla Finney MD [facility] [place] [address] 10/05/2024 1:10 PM [place] [address] Pricilla Finney MD [facility] [place] [address] 10/07/2024 10:00 AM EST Hospital Encounter Non[place] [address] Arrived documented as of this [...] Modality Other Narrative 09/06/2021 12:54 PM EDT ?[facility] ? Cardiac Catheterization/Intervention Report ? Patient Name: hCery, Jammie A. ? Procedure Date: 09/06/2021 ? A #: [id number] ? Primary Physician: Washburn, Justino P ? Case #: [id number] ? File Name: [id number] ? Catheterization Order Number: [id number] ? [facility] ? Final Report [place], [place] ? Patient Name: ? Jammie A. [place] ? ID#: ?[id number] ? : ?1975 ? Procedure Date: ? September 06, 2021 ? Case #: ? [id number] ? Room: ? 1 ? Case Physician: [...] procedure was Elective. The indication for ?the laboratory chemist visit is cardiomyopathy. Chest pain symptom assessment [...] right heart catheterization and oximetry. ? Justino Washburn, M.D. ? Electronically Signed by: Justino Washburn M.D. ? Report Finalized: 09/06/2021 ??12:46 ? Procedure Note Justino Washburn MD - 09/06/2021 [facility] Cardiac Catheterization/Intervention Report Patient Name: Jammie Gottlieb Procedure Date: 09/06/2021 A #: [id number] Primary Physician: Justino Washburn Case #: [id number] File Name: [id number] Catheterization Order Number: [id number] [facility] FinalReport [place], [place] Patient Name: Jammie Gottlieb ID#:[id number] :1975 Procedure Date: September 06, 2021 Case #: [id number] Room: 1 Case Physician: Justino Washburn M.D. Start: 11:54 Fellow: Randy Koroma M.D. Admission:09/06/2021 Referring Snachez Gant Physicians: Alla Juárez M.D. Procedures: * [...] was designated as ASA Class II. The [facility] clinical frailtyscale is 3: Managing Well. Diagnostic Tests: Prior Coronary Angiography: LV ejection fraction within 6 months is 41%. Medications Prior to Procedure: Angiotensin Converting Enzyme Inhibitor, Aspirin, Beta Blockerand Statin. Indications for Diagnostic Cath: The priority of the diagnostic procedure was Elective. Theindication for the laboratory chemist visit is cardiomyopathy. Chest pain symptom assessmentwas: Asymptomatic. Technique: A 6 SLFr sheath was inserted in the right radial artery utilizingthe Seldinger technique. A 6 SLFr sheath was inserted in the rightmedian antecubital vein utilizing the Seldinger technique. Right heart catheterization was performed utilizing a 6Fr BALLOON WEDGEcatheter. The left coronary artery was injected utilizing a 5Fr JAAN RADIALcatheter. A 5Fr JANA RADIAL catheter was [...] * POCT Glucose (09/06/2021 8:23 AM EDT) Glucose, POC 109 65 - 199 mg/dL [facility] Comment: Supplemental ranges: <140 mg/dL before meals <180 mg/dL all other times of the day Blood 09/06/2021 8:23 AM EDT 09/06/2021 8:23 AM EDT Justino Washburn MD POINT OF CARE TEST O RDERABLES [facility] [place] [address] * (ABNORMAL) Differential, Automated (09/06/2021 8:10 AM EDT) Neutrophil % 65.0 % [facility] Neutrophil Absolute 7.22(H) 1.70 - 6.10 x10(3)/ L [facility] Lymph % 27.0 % [facility] Lymphocytes Abs 3.0 0.9 - 3.2 x10(3)/[facility] Monocyte % 5.0 % [facility] Monocyte Abs 0.6 0.3 - 0.9 x10(3)/[facility] Eos % 1.9 % [facility] Eosinophils Abs 0.2 0.0 - 0.4 x10(3)/[facility] Basophil % 0.7 % [facility] Baso Absolute 0.1 0.0 - 0.1 x10(3)/[facility] Immature Gran % 0.40 % [facility] Comment: Immature granulocytes(IG's)percentage and absolute count will include metamyelocytes, myelocytes, and promyelocytes. Blood smears from CBCs yielding IG's will be scanned manually for concordance. If this scan disagrees with the automated IG or if promyelocytes are noted, a manual differential will be performed. Immature Gran Absolute 0.04 0.00 - 0.04 x10(3)/[facility] Blood 09/06/2021 8:10 AM EDT 09/06/2021 8:28 AM EDT Narrative Resulting Agency Comment Spec In Lab Kina RODRÍGUEZ HEMATOLOGY ORDERABLE S [facility] [place] [address] * (ABNORMAL) Hemogram (09/06/2021 8:10 AM EDT) Pathologist [facility] White Blood Cell 11.1(H) 4.0 - 9.5 x10(3)/ L [facility] Red Blood Cell 5.06 4.00 - 5.21 x10(6)/mc L [facility] Hemoglobin 14.8 11.7 - 15.5 g/dL [facility] Hematocrit 45.1 35.7 - 45.8 % [facility] Mean Cell Volume 89.1 82.6 - 94.4 fL [facility] Mean Cell Hemoglobin 29.2 27.1 - 32.0 pg [facility] Mean Cell Hemoglobin Concentration 32.8 31.7 - 35.0 g/dL [facility] Platelet 255 145 - 357 x10(3)/ L [facility] RDW Standard Deviation 44.4 37.0 - 46.0 [facility] RDW coefficient of variation 13.6 11.5 - 14.1 % [facility] Mean Platelet Volume 10.3 7.6 - 12.9 [facility] NRBC% auto 0.0 % [facility] NRBC Absolute 0.000 0.000 - 0.000 x10(3)/[facility] Blood 09/06/2021 8:10 AM EDT 09/06/2021 8:28 AM EDT Narrative Resulting Agency Comment Spec In Lab Kina RODRÍGUEZ HEMATOLOGY ORDERABLE S [facility] [place] [address] * Prothrombin Time (09/06/2021 8:10 AM EDT) Prothrombin Time 11.8 9.4 - 12.5 sec [facility] International Normalization Ratio 1.0 [facility] Comment: An INR <2.0 indicates [...] MD HEMATOLOGY O RDERABLES Performing Organization Address City/State/[facility] Co de Phone Number [facility] [place] [address] * (ABNORMAL) BMP w/fasting Glucose (09/06/2021 8:10 [...] of Diabetes Mellitus, Position Statement from the [place] [employer]. ??Diabetes Care, Volume 33, Supplement 1, Nov 2009 Blood Urea Nitrogen 20(H) 8 - 18 mg/dL [facility] [...] 107 mmol/L [facility] Carbon Dioxide 26 22 - 31 mmol/L [facility] Anion Gap 14 5 - 15 mmol/L [facility] Calcium 9.8 8.5 - 10.5 mg/dL [facility] Est Glomerular Filtration Rate 105 >=60 mL/min/1. 73 m?? [facility] [...] MD CHEMISTRY OR DERABLES Performing Organization Address City/State/[facility] Co de Phone Number [facility] [place] [address] documented in this encounter Visit Diagnoses Diagnosis [...] Until Thu09/06/21 at 1703, Pain, while in laboratory chemist, Routine Given 09/06/2021 11:53 AM EDT 2 [...] Until Thu09/06/21 at 1703, Pain, while in laboratory chemist, Routine 1153 (Given - Provid er: Maria [...] Baker) documented in this encounter Care Teams Audit Specialist Relationship Specialty Start Date End Date Edie Ellis MD [address] [place] [address] PCP - General 10/15/10 documented as of this encounter
--- OUTSIDE RECORDS SUMMARY | 2024-08-15 17:01 | XMS_ITS | Encounter Summary ---
Author Organization [facility] Address [facility] [place] [address] Care Team Providers Care Chief Engineering Division Name Role Phone Edie Ellis MD Primary Care Provider [phone] Reason for Referral * Diagnostic Test (Routine) - Closed Specialty Diagnoses / Procedures Referred By Geraldine t Referred To Contact Cardiology Diagnoses HFrEF (heart failure with reduced ejection fraction) Pulmonary hypertension Procedures Echocardiogram Transthoracic([facility]) Kina Awad PA [facility] [place] [address] [facility] [place] [address] Referral ID Status Reason Start Date Expiration Date V isits Requested Visits Authorized [id number] Closed Specialty Service Requested 09/09/2021 09/09/2022 1 1 Encounter Details Date Type Department Care Team (Late st Contact Info) Description 09/06/2021 10:40 AM EDT Office Visit Cardiology at [address] [address] Kina Awad PA [facility] [place] [address] HFrEF (heart failure with reduced [...] from the original note were not included. [facility] Section of Advanced Heart Failure Cardiology [facility] [place] [address] OUTPATIENT VISIT DATE: 06/09/21 OUTPATIENT VISIT TYPE: [...] Last syncopal event Aug 2020, admitted to [facility]. Loss of urine. Placed on Keppra, [...] palpitations, overall unchanged and notably rare. Recommended /[facility] to further evaluate. Upcoming appointment [...] by mouth daily. ??? Lancets Misc by [facility].(Non-Drug; Combo Route) route daily. ??? Miscellaneous Medical Supply Misc 1 strip by [facility].(Non-Drug; Combo Route) route [...] MACY Diuretic Stop Lasix today ICD or MICA SPREADER-D if indicated Not indicated with LVEF >35% [...] 10/05/2024 11:00 AM EST Appointment XRay at [address] [place] [address] 10/05/2024 1:10 PM [place] [address] Pricilla Finney MD [facility] [place] [address] 10/05/2024 1:10 PM [place] [phone] Pricilla Finney MD [facility] [place] [address] 10/07/2024 10:00 AM EST Hospital Encounter Non-[place] [address] Arrived documented as of this encounter Results * ECHO COMPLETE (01/02/2022 10:18 AM EST) EF 52 HEARTLAB SYSTEM Anatomical Region Laterality Modality Other 01/02/2022 Narrative 01/02/2022 10:32 AM EST Procedure: ?Transthoracic Echocardiogram Patient: ?CARSON MCCANN A ? (Age): 1975(46y) Med Rec#: ? [id number] ?Sex: ?F ? Site Loc: ? DH ?Ht / Wt: ??163(cm)/94(kg) Pt. Loc: ?Echo Lab ?BSA: ?1.99 Study Date: ?? 01/02/2022 ?Pt. Type: Outpatient Tape: ? Referring: PRECIOUS Reading: Luke Luevano ??([id number]) Superintendent Meter Tests: Wil Cuellar RDCS, FASE Diagnosis: *Cardiomyopathy, unspecified [...] 01/02/2022 10:31:41 Images reviewed and interpretation verified [facility] Procedure Note Luke Luevano MD - 01/02/2022 Procedure: Transthoracic Echocardiogram Patient: CARSON METZGER(Age): 1975(46y) Med Rec#: [id number] Sex: F Site Loc: [facility] Ht / Wt: 163(cm)/94(kg) Pt. Loc: Echo Lab BSA: 1.99 Study Date: 01/02/2022 Pt. Type: Outpatient Tape: [facility] Reading: Luke Luevano ([id number]) Superintendent Meter Tests: Wil Cuellar RDCS, FASE Diagnosis: *Cardiomyopathy, unspecified [...] 01/02/2022 10:31:41 Images reviewed and interpretation verified [facility] Alla Richardson MD ECHO ORDERAB LES documented in this encounter Visit Diagnoses Diagnosis HFrEF (heart failure with reduced ejection fraction) Pulmonary hypertension Other chronic pulmonary heart diseases HFrEF (heart failure with reduced ejection fraction) Pulmonary hypertension Other chronic pulmonary heart diseases documented in this encounter Care Teams Chief Engineering Division Relationship Specialty Start Date End Date Edie Ellis MD [address] [place] [address] PCP - General 10/15/10 documented as of this encounter
--- OUTSIDE RECORDS SUMMARY | 2024-08-15 17:01 | XMS_ITS | Encounter Summary ---
Author Organization [facility] [place] [address] Care Team Providers Care Account Information Clerk Name Role Phone Edie Ellis MD Primary Care Provider [phone] Reason for Visit * Reason Onset Date Comments Medication Refill 03/20/2015 Encounter Details Date Type Department Care Team (Late st Contact Info) Description 03/20/2015 Refill [place] [address] Estrada Parikh MD [facility] [place] [address] Post laminectomy syndrome Social History Tobacco Use [...] 10/05/2024 11:00 AM EST Appointment XRay at [address] [place] [address] 10/05/2024 1:10 PM [place] [address] Pricilla Finney MD [facility] [place] [address] 10/05/2024 1:10 PM [place] [address] Pricilla Finney MD [facility] [place] [address] 10/07/2024 10:00 AM EST Hospital Encounter Non-[place]vasive [place] [address] Arrived documented as of this encounter Visit Diagnoses Diagnosis Post laminectomy syndrome Postlaminectomy syndrome, unspecified region documented in this encounter Care Teams Account Information Clerk Relationship Specialty Start Date End Date Edie Ellis MD [facility] [address] [place] [address] PCP - General 10/15/10 documented as of this encounter
--- OUTSIDE RECORDS SUMMARY | 2024-08-15 17:01 | XMS_ITS | Encounter Summary ---
Author Organization [facility] Address [facility] [place] [address] Care Team Providers Care Court Commissioner Name Role Phone Edie Ellis MD Primary Care Provider [phone] Reason for Visit * Reason Comments Sterilization Encounter Details Date Type Department Care Team (Late st Contact Info) Description 03/30/2014 2:30 PM EDT Office Visit Obstetrics [place] [address] Hola Valdez MD [facility] [address] General counseling and advice on female contraception [...] 20 minutes of that were spent in [id number] discussion. documented in this encounter Plan of Treatment Upcoming Encounters Date Type Department Care Team (Brian st Contact Info) Description 10/05/2024 11:00 AM EST Appointment XRay at [address] [place] [address] 10/05/2024 1:10 PM [place] [address] Pricilla Finney MD [facility] [place] [place] [address] 10/05/2024 1:10 PM [place] [address] Pricilla Finney MD [facility] [place] [address] 10/07/2024 10:00 AM EST Hospital Encounter Non-Invasive [place] [address] Arrived documented as of this encounter Visit Diagnoses Diagnosis General counseling and advice on female contraception- Primary Other general counseling and advice for contraceptive management documented in this encounter Care Teams Court Commissioner Relationship Specialty Start Date End Date Edie Ellis MD [facility] [address] [place] [address] PCP - General 10/15/10 documented as of this encounter
--- OUTSIDE RECORDS SUMMARY | 2024-08-15 17:01 | XMS_ITS | Encounter Summary ---
Author Organization [facility] Address [facility] [address] Care Team Providers Care Protective Signal Repairer Helper Name Role Phone Edie Ellis MD Primary Care Provider [phone] Encounter Details Date Type Department Care Team (Latest Contact Info) Description 03/05/2017 - 03/05/2017 11:59 PM EDT Hospital Encounter Radiology Library at [facility] [place] [address] Edie Ellis MD [facility] [address] [place], [place] [id number] Pain Discharge Disposition: Home Social History Tobacco [...] by mouth daily. 06/17/2021 Lancets Misc by [facility] [place].(Non-Drug; Combo Route) route daily. 06/17/2021 Miscellaneous Medical Supply Misc 1 strip by [facility] [place].(Non-Drug; Combo Route) route daily. 06/17/2021 clonAZEpam (KLONOPIN) 1 mg tablet Take 1 mg by mouth 2 times daily as needed. 01/02/2022 ibuprofen (ADVIL;MOTRIN) 600 mg tablet 600 MG = 1 Tablet(s), PO, Q6H 03/05/2010 06/17/2021 documented as of this encounter Plan of Treatment Upcoming Encounters Date Type Department Care Team (Late st Contact Info) Description 10/05/2024 11:00 AM EST Appointment XRay at [address] [place] [address] 10/05/2024 1:10 PM [place] [address] Pricilla Finney MD [facility] DR [place]OLOG[place] [address] 10/05/2024 1:10 PM [place] [address] Pricilla Finney MD [facility] DR [place]OLOG[place] [address] 10/07/2024 10:00 AM EST Hospital Encounter Non-[place]vasive [place] [address] Arrived documented as of this encounter Procedures Procedure Name Priority Date/Time Associated Diagnosis Comments FILM LIBRARY STORAGE ONLY CT ABDOMEN AND PELVIS Routine 03/05/2017 12:00 AM EDT Pain documented in this encounter Results * Film Library- Storage Only CT Abdomen & Pelvis (03/05/2017 12:00 AM EDT) Narrative [facility] - 03/18/2017 2:28 PM EDT This exam is for storage only and is auto-finalizing. Edie Ellis MD IMG FILM LIBRARY ORD ERABLES DH [place], [place] documented in this encounter Visit Diagnoses Diagnosis Pain Generalized pain documented in this encounter Care Teams Protective Signal Repairer Helper Relationship Specialty Start Date End Date Edie Ellis MD [address] [place] [address] PCP - General 10/15/10 documented as of this encounter
--- OUTSIDE RECORDS SUMMARY | 2024-08-15 17:01 | XMS_ITS | Encounter Summary ---
[place] [address] Care Team Providers Care Loan Interviewer Name Role Phone Edie Ellis MD Primary Care Provider [phone] Reason for Visit * Reason Onset Date Comments Other 09/01/2013 PHONE CALL PRE C ATH Encounter Details Date Type Department Care Team (Late st Contact Info) Description 09/01/2013 Telephone Cardiology at [address] [phone] Rachel Arrieta Other (PHONE CALL PRE CATH) [...] 11:00 AM EST Appointment XRay at [address] [place] [address] 10/05/2024 1:10 PM EST Appointment MRI at [place] [phone] Pricilla Finney MD [facility] [place] [address] 10/05/2024 1:10 PM EST [place] [address] Pricilla Finney MD [facility] [place] [address] 10/07/2024 10:00 AM EST Hospital Encounter Non-Invasive [place] [address] Arrived documented as of this encounter Visit Diagnoses Not on filedocumented in this encounter Care Teams Loan Interviewer Relationship Specialty Start Date End Date Edie Ellis MD [address] [place] [address] PCP - General 10/15/10 documented as of this encounter
--- OUTSIDE RECORDS SUMMARY | 2024-08-15 17:01 | XMS_ITS | Encounter Summary ---
Author Organization [facility] Address [facility] [place] [address] Care Team Providers Care Tank House Operator Helper Name Role Phone Edie Ellis MD Primary Care Provider [phone] Encounter Details Date Type Department Care Team (Late st Contact Info) Description 09/06/2021 9:00 AM EDT - 09/06/2021 10:00 AM EDT [place] [address] Justion Washburn MD [facility] [address] CARDIAC CATHETERIZATION Social History Tobacco Use Types [...] by your doctor, do not take any ibmk-xqf-xewsmgp medicinesor herbal preparations without first discussing this with your doctor or pharmacist. There is the possibility of side effects and interactions when these are combined. Follow Up Care Who to call with questions or problems If there are any questions or problems that you think might be related to your cardiac cath or angioplasty, contact the e commerce architect director consumer by calling [facility] at . documented in this encounter [...] a day 03/12/2015 naloxone (Narcan) 4 mg/actuation [place], Non-Aerosol Once 03/10/2019 magnesium oxide (MAG-OX) 400 [...] diabetes mellitus without complication, unspecified whether terminal carman insulin use Take 10 mg by mouth [...] QTC Calculated (Bezet) 469 ms Calculated P [place] 9 degrees Calculated R [place] -5 degrees Calculated T [place] 18 degrees INTERPRETATION Normal sinus rhythm Low [...] from the original note were not included. [facility] [place] [address] CORONARY ANGIOGRAM AND PERCUTANEOUS CORONARY INTERVENTION REPORT Patient: Jammie Gottlieb : 1975 MR number: [id number] Date of Service: 09/06/2021 Professional Development Director: Justino Washburn MD Fellow: Femi Koroma MD [...] obtained. The patient was brought to the crime lab technician and placed onthe table. Time [...] no procedural complications. ??? I provided direct votd-sp-ally monitoring of conscious sedation which was administered [...] 10/05/2024 11:00 AM EST Appointment XRay at [address] [place] [address] 10/05/2024 1:10 PM [place] [address] Pricilla Finney MD [facility] [place] [address] 10/05/2024 1:10 PM [place] [address] Pricilla Finney MD [facility] [place] [address] 10/07/2024 10:00 AM EST Hospital Encounter Non-[place] [address] Arrived documented as of this encounter Procedures [...] Modality Other Narrative 09/06/2021 12:54 PM EDT ?[facility] ? Cardiac Catheterization/Intervention Report ? Patient Name: Jammie GottliebNing ? Procedure Date: 09/06/2021 ? A #: [id number] ? Primary Physician: Justino Washburn ? Case #: [id number] ? File Name: [id number] ? Catheterization Order Number: [id number] ? [facility] ? Final Report [place], [place] ? Patient Name: ? Jammie A. Hollywood ? ID#: ?[id number] ? : ?1975 ? Procedure Date: ? September 06, 2021 ? Case #: ? [id number] ? Room: ? 1 ? Case Physician: ? Justino Washburn MNingD. ?Start: ?11:54 ?Fellow: ? Randy Koroma M.D. ?Admission: ??09/06/2021 ? Referring ? Kina Munozetti, P.A. ? Physicians: ?Alla Juárez M.D. ? Procedures: [...] procedure was Elective. The indication for ?the crime lab technician visit is cardiomyopathy. Chest pain [...] right heart catheterization and oximetry. ? Justino Washburn MNingD. ? Electronically Signed by: Justino Washburn M.D. ? Report Finalized: 09/06/2021 ??12:46 ? Procedure Note Justino Washburn MD - 09/06/2021 [facility] Cardiac Catheterization/Intervention Report Patient Name: Jammie Gottlieb Procedure Date: 09/06/2021 A #: [id number] Primary Physician: Justino Washburn Case #: [id number] File Name: [id number] Catheterization Order Number: [id number] [facility] FinalReport [place], [place] Patient Name: Jammie Gottlieb ID#:[id number] :1975 Procedure Date: September 06, 2021 Case [...] was designated as ASA Class II. The [facility] clinical frailtyscale is 3: Managing Well. Diagnostic Tests: Prior Coronary Angiography: LV ejection fraction within 6 months is 41%. Medications Prior to Procedure: Angiotensin Converting Enzyme Inhibitor, Aspirin, Beta Blockerand Statin. Indications for Diagnostic Cath: The priority of the diagnostic procedure was Elective. Theindication for the crime lab technician visit is cardiomyopathy. Chest pain [...] * POCT Glucose (09/06/2021 8:23 AM EDT) [facility] Glucose, POC 109 65 - 199 mg/dL [facility] Comment: Supplemental ranges: <140 mg/dL before meals <180 mg/dL all other times of the day Blood 09/06/2021 8:23 AM EDT 09/06/2021 8:23 AM EDT Justino Washburn MD POINT OF CARE TEST O RDERABLES [facility] [place] [address] * (ABNORMAL) Differential, Automated (09/06/2021 8:10 AM EDT) Pathologist [facility] Neutrophil % 65.0 % [facility] Neutrophil Absolute 7.22(H) 1.70 - 6.10 x10(3)/[facility] LAB[facility]AT[facility] Lymph % 27.0 % [facility] Lymphocytes Abs 3.0 0.9 - 3.2 x10(3)/[facility] Monocyte % 5.0 % [facility] Monocyte Abs 0.6 0.3 - 0.9 x10(3)/[facility] Eos % 1.9 % [facility] Eosinophils Abs 0.2 0.0 - 0.4 x10(3)/[facility] Basophil % 0.7 % [facility] Baso Absolute 0.1 0.0 - 0.1 x10(3)/[facility] Immature Gran % 0.40 % [facility] Comment: Immature granulocytes(IG's)percentage and absolute count will include metamyelocytes, myelocytes, and promyelocytes. Blood smears from CBCs yielding IG's will be scanned manually for concordance. If this scan disagrees with the automated IG or if promyelocytes are noted, a manual differential will be performed. Immature Gran Absolute 0.04 0.00 - 0.04 x10(3)/[facility] Blood 09/06/2021 8:10 AM EDT 09/06/2021 8:28 AM EDT Narrative Resulting Agency Comment Spec In Lab Kina RODRÍGUEZ HEMATOLOGY ORDERABLE S [facility] [place] [address] * (ABNORMAL) Hemogram (09/06/2021 8:10 AM EDT) Pathologist [facility] White Blood Cell 11.1(H) 4.0 - 9.5 x10(3)/[facility] Red Blood Cell 5.06 4.00 - 5.21 x10(6)/mc L [facility] Hemoglobin 14.8 11.7 - 15.5 g/dL [facility] Hematocrit 45.1 35.7 - 45.8 % [facility] Mean Cell Volume 89.1 82.6 - 94.4 fL [facility] Mean Cell Hemoglobin 29.2 27.1 - 32.0 pg [facility] Mean Cell Hemoglobin Concentration 32.8 31.7 - 35.0 g/dL [facility] Platelet 255 145 - 357 x10(3)/mc L [facility] RDW Standard Deviation 44.4 37.0 - 46.0 fL [facility] RDW coefficient of variation 13.6 11.5 - 14.1 % [facility] Mean Platelet Volume 10.3 7.6 - 12.9 fL [facility] NRBC% auto 0.0 % [facility] NRBC Absolute 0.000 0.000 - 0.000 x10(3)/mc L [facility] Blood 09/06/2021 8:10 AM EDT 09/06/2021 8:28 AM EDT Narrative Resulting Agency Comment Spec In Lab Kina RODRÍGUEZ HEMATOLOGY ORDERABLE S [facility] [place] [address] * Prothrombin Time (09/06/2021 8:10 AM EDT) Prothrombin Time 11.8 9.4 - 12.5 sec [facility] International Normalization Ratio 1.0 [facility] Comment: An INR <2.0 indicates adequate [...] Lab Alla Richardson MD HEMATOLOGY O RDERABLES [facility] [place] [address] * (ABNORMAL) BMP w/fasting Glucose (09/06/2021 8:10 AM EDT) Glucose Fasting 112(H) 65 - 99 mg/dL [facility] Comment: ?Fasting* Glucose Interpretive [...] Urea Nitrogen 20(H) 8 - 18 mg/dL [facility] Creatinine 0.68(L) 0.70 - 1.20 mg/dL [facility] Sodium 139 135 - 145 mmol/L [facility] Potassium 4.4 3.5 - 5.0 mmol/L [facility] Comment: Please note: ??Patients with WBC >100,000 may have falsely elevated Potassium levels. ??For accurate Potassium quantification in these patients send serum separator tube (gold top) for subsequent determinations. ??Contact the Clinical Chemistry Laboratory if there are any questions. Chloride 99 98 - 107 mmol/L [facility] Carbon Dioxide 26 22 - 31 mmol/L [facility] Anion Gap 14 5 - 15 mmol/L [facility] Calcium 9.8 8.5 - 10.5 mg/dL [facility] Est Glomerular Filtration Rate 105 >=60 mL/min/1. 73 m?? [facility] Comment: This patient? s [...] Lab Alla Richardson MD CHEMISTRY OR DERABLES [facility] [place] [address] documented in this encounter Visit Diagnoses Diagnosis [...] Until Thu09/06/21 at 1703, Pain, while in crime lab technician, Routine Given 09/06/2021 11:53 AM [...] Until Thu09/06/21 at 1703, Pain, while in crime lab technician, Routine 1153 (Given - Provid [...] Baker) documented in this encounter Care Teams Tank House Operator Helper Relationship Specialty Start Date End Date Edie Ellis MD [facility] [address] [place] [address] PCP - General 10/15/10 documented as of this encounter
--- OUTSIDE RECORDS SUMMARY | 2024-08-15 17:01 | XMS_ITS | Encounter Summary ---
Author Organization [facility] Address [facility] [place] [address] Care Team Providers Care Television Writer Name Role Phone Edie Ellis MD Primary Care Provider [phone] Encounter Details Date Type Department Care Team (Latest Contact Info) Description 03/06/2017 - 03/06/2017 11:59 PM EDT Hospital Encounter Radiology Library at [facility] [place] [address] Edie Ellis MD [facility] [address] [place], [place] [id number] Pain Discharge Disposition: Home Social History Tobacco [...] Miscellaneous Medical Supply Misc 1 strip by [facility]Non-Drug; Combo Route) route daily. 06/17/2021 clonAZEpam (KLONOPIN) 1 mg tablet Take 1 mg by mouth 2 times daily as needed. 01/02/2022 ibuprofen (ADVIL;MOTRIN) 600 mg tablet 600 MG = 1 Tablet(s), PO, Q6H 03/05/2010 06/17/2021 documented as of this encounter Plan of Treatment Upcoming Encounters Date Type Department Care Team (Late st Contact Info) Description 10/05/2024 11:00 AM EST Appointment XRay at [address] [place] [address] 10/05/2024 1:10 PM [place] [address] Pricilla Finney MD [facility] [place] [address] 10/05/2024 1:10 PM [place] [address] Pricilla Finney MD [facility] [place] [address] 10/07/2024 10:00 AM EST Hospital Encounter Non-[place] [address] Arrived documented as of this encounter Procedures Procedure Name Priority Date/Time Associated Diagnosis Comments FILM LIBRARY STORAGE ONLY ULTRASOUND STUDY Routine 03/06/2017 12:00 AM EDT Pain documented in this encounter Results * Film Library- Storage Only Ultrasound Study (03/06/2017 12:00 AM EDT) Narrative RAD - 03/18/2017 2:29 PM EDT This exam is for storage only and is auto-finalizing. Edie Ellis MD [facility] FILM LIBRARY ORD ERABLES Performing Organization Address City/State/[facility] Co de Phone Number [place], [place] documented in this encounter Visit Diagnoses Diagnosis Pain Generalized pain documented in this encounter Care Teams Television Writer Relationship Specialty Start Date End Date Edie Ellis MD [address] [place] [address] PCP - General 10/15/10 documented as of this encounter
--- OUTSIDE RECORDS SUMMARY | 2024-08-15 17:01 | XMS_ITS | Encounter Summary ---
Author Organization [facility] [place] [address] Care Team Providers Care Fire Extinguisher Repairer Name Role Phone Edie Ellis MD Primary Care Provider [phone] Reason for Visit * Reason Comments Backache Left Leg Pain Encounter Details Date Type Department Care Team (Late st Contact Info) Description 06/04/2012 3:15 PM EDT Follow-Up [place] [address] Hemant Rivera MD [facility] [place] [address] Lumbar radiculopathy (Primary Dx) Discharge Disposition: Home [...] 11:00 AM EST Appointment XRay at [address] [place] [address] 10/05/2024 1:10 PM [place] [address] Pricilla Finney MD [facility] [place] [address] 10/05/2024 1:10 PM [place] [address] Pricilla Finney MD [facility] [place] [address] 10/07/2024 10:00 AM EST Hospital Encounter Non-Invasive Cardiology Lab [place] [phone] Arrived documented as of this encounter Visit Diagnoses Diagnosis Lumbar radiculopathy- Primary Thoracic or lumbosacral neuritis or radiculitis, unspecified documented in this encounter Care Teams Fire Extinguisher Repairer Relationship Specialty Start Date End Date Edie Ellis MD [address] [place] [address] PCP - General 10/15/10 documented as of this encounter
--- OUTSIDE RECORDS SUMMARY | 2024-08-15 17:01 | XMS_ITS | Encounter Summary ---
Author Organization [facility] Address [facility] [place] [address] Care Team Providers Care Clerical Stock Inspector Name Role Phone Edie Ellis MD Primary Care Provider Encounter Details Date Type Department Care Team (Late st Contact Info) Description 06/03/2012 10:58 AM EDT - 06/03/2012 12:26 PM EDT Surgery [place] [address] Carine Gill MD [facility] [place] [address] PERC IMPLANTATION NEUROSTIMULATOR ELECTRODE ARRAY, EPIDURAL (WRVU [...] to call your physician or the hospital sole rounding machine operator if you have any questions, and they will be happy to assist you. [facility] Anesthesia Department [address] [place] [address] * Patient Instructions* Heaven Mariano MD - [...] until we see you in clinic. Call [phone] with any questions. documented in this encounter [...] hours as needed. 04/29/2014 Lancets Misc by [facility]Non-Drug; Combo Route) route daily. 06/17/2021 Miscellaneous Medical Supply [facility] 1 strip by [facility].(Non-Drug; Combo Route) route daily. 06/17/2021 clonAZEpam (KLONOPIN) [...] Operative Note Patient Name: Jammie Gottlieb : [id number] MR#: [id number] Case Date: 06/03/2012 Surgeon: Surgeon(s) and Role: [...] 06/03/2012 12:00 AM EDT [facility] Operative Note Patient Name: Jammie Gottlieb : [id number] MR#: [id number] Case Date: 06/03/2012 Surgeon: Surgeon(s) and Role: [...] 11:00 AM EST Appointment XRay at [address] [place] [address] 10/05/2024 1:10 PM [place] [address] Pricilla Finney MD [facility] [place] [address] 10/05/2024 1:10 PM [place] [address] Pricilla Finney MD [facility] [place] [address] 10/07/2024 10:00 AM EST Hospital Encounter Non-Invasive [place] [address] Arrived Pending Results Name Type Priority Associated [...] hours., Day of Surgery (Day of Procedure), Routine, Indication for (Active or Suspected): Prophylaxis Given 06/03/2012 11:50 AM EDT 1,000 mg [...] hours., Day of Surgery (Day of Procedure), Routine, Indication for (Active or Suspected): Prophylaxis 1030 (Due)1150 (Give n - Provider: Leticia [...] MD) documented in this encounter Care Teams Clerical Stock Inspector Relationship Specialty Start Date End Date Edie Ellis MD [address] [place] [address] PCP - General 10/15/10 documented as of this encounter
--- OUTSIDE RECORDS SUMMARY | 2024-08-15 17:01 | XMS_ITS | Encounter Summary ---
Author Organization [facility] [place] [address] Care Team Providers Care Geropsychologist Name Role Phone Edie Ellis MD Primary Care Provider [phone] Encounter Details Date Type Department Care Team (Late st Contact Info) Description 06/14/2021 Orders Only Cardiology at [address] [address] Maryam Crouch, RN Social History Tobacco Use Types Packs/Day [...] 11:00 AM EST Appointment XRay at [address] [place] [address] 10/05/2024 1:10 PM EST [place] [address] Pricilla Finney MD [facility] [place] [address] 10/05/2024 1:10 PM EST [place] [address] Pricilla Finney MD [facility] [place] [address] 10/07/2024 10:00 AM EST Hospital Encounter Non-[place] [address] Arrived documented as of this encounter Visit Diagnoses Not on filedocumented in this encounter Additional Health Concerns Infection Onset Date Last Indicated Resolved Time Rule Out COVID-19 07/01/2021 07/01/2021 07/01/2021 12:54 PM EDT documented as of this encounter Care Teams Geropsychologist Relationship Specialty Start Date End Date Edie Ellis MD [facility] [address] [place] [address] PCP - General 10/15/10 documented as of this encounter
--- OUTSIDE RECORDS SUMMARY | 2024-08-15 17:01 | XMS_ITS | Encounter Summary ---
Author Organization [facility] [place] [address] Care Team Providers Care Database Administrator Name Role Phone Edie Ellis MD Primary Care Provider [phone] Encounter Details Date Type Department Care Team (Latest Contact Info) Description 08/16/2021 9:40 AM EDT Laboratory Appointment Lab [address] [place] [address] HFrEF (heart failure with reduced ejection fraction) [...] 10/05/2024 11:00 AM EST Appointment XRay at [address] [place] [address] 10/05/2024 1:10 PM [place] [address] Pricilla Finney MD [facility] [place] [address] 10/05/2024 1:10 PM EST Appointment MRI at [facility] [place] [place] [address] Pricilla Finney MD [facility] DR NEUROLOGY DEPT [place], [place] [address] 10/07/2024 10:00 AM EST Hospital Encounter Non-Invasive Cardiology Lab [facility] [place] [address] Arrived documented as of this encounter [...] EDT) Glucose 122 65 - 199 mg/dL [facility] Comment:Diabetes: >=200 mg/d L plus symptoms Blood Urea Nitrogen 12 8 - 18 mg/dL [facility] Creatinine 0.66(L) 0.70 - 1.20 mg/dL [facility] Sodium 135 135 - 145 mmol/L [facility] Potassium 4.6 3.5 - 5.0 mmol/L [facility] Comment: Please note: ??Patients with WBC >100,000 may have falsely elevated Potassium levels. ??For accurate Potassium quantification in these patients send serum separator tube (gold top) for subsequent determinations. ??Contact the Clinical Chemistry Laboratory if there are any questions. Chloride 98 98 - 107 mmol/L [facility] Carbon Dioxide 28 22 - 31 mmol/L [facility] Anion Gap 9 5 - 15 mmol/L [facility] Calcium 9.5 8.5 - 10.5 mg/dL [facility] Est Glomerular Filtration Rate 106 >=60 mL/min/1. 73 m?? [facility] [...] Lab Alla Richardson MD CHEMISTRY OR DERABLES [facility] [place] [address] * pro-Brain Natriuretic Peptide (08/16/2021 9:45 AM EDT) NT-proBNP 34 <=124 pg/mL [facility] Blood 08/16/2021 9:45 AM EDT 08/16/2021 10:01 AM EDT Narrative Resulting Agency Comment Spec In Lab Alla Richardson MD CHEMISTRY OR DERABLES Performing Organization Address City/[facility]/ZIP Co de Phone Number [facility] [place] [address] documented in this encounter Visit Diagnoses Diagnosis HFrEF (heart failure with reduced ejection fraction) documented in this encounter Care Teams Database Administrator Relationship Specialty Start Date End Date Edie Ellis MD [address] [place] [address] PCP - General 10/15/10 documented as of this encounter
--- OUTSIDE RECORDS SUMMARY | 2024-08-15 17:01 | XMS_ITS | Encounter Summary ---
Author Organization [facility] Address [facility] [place] [address] Care Team Providers Care Teacher Citizenship Name Role Phone Edie Ellis MD Primary Care Provider [phone] Reason for Visit * Reason Onset Date Comments Medication Refill 07/22/2021 [employer]xiga, insur ance requesting 90 day supply Encounter Details Date Type Department Care Team (Late st Contact Info) Description 07/22/2021 Refill Cardiology at [address] [place] [address] Andreina David, [facility] [place] [address] Medication Refill ([employer], insurance requesting 90 day [...] 11:00 AM EST Appointment XRay at [address] [place] [address] 10/05/2024 1:10 PM EST Appointment MRI at [address] Pricilla Finney MD [facility] [place] [address] 10/05/2024 1:10 PM EST Appointment MRI at [place] [phone] Pricilla Finney MD [facility] [place] [address] 10/07/2024 10:00 AM EST Hospital Encounter Non-Invasive Cardiology Lab [place] [address] Arrived documented as of this encounter Visit Diagnoses Diagnosis Type 2 diabetes mellitus without complication, unspecified whether prison insulin use documented in this encounter Care Teams Teacher Citizenship Relationship Specialty Start Date End Date Edie Ellis MD [facility] [address] [place] [address] PCP - General 10/15/10 documented as of this encounter
--- OUTSIDE RECORDS SUMMARY | 2024-08-15 17:01 | XMS_ITS | Encounter Summary ---
Author Organization [facility] Address [facility] [place] [address] Care Team Providers Care Telephone Service Adviser Name Role Phone Edie Ellis MD Primary Care Provider Reason for Referral * Consultation (Routine) - Closed Specialty Diagnoses / Procedures Referred By Geraldine olmedo Referred To Contact Genetics Diagnoses Cardiomyopathy, unspecified type Kina Griffin PA [facility] [place] [address] [address] Referral ID Status Reason Start Date Expiration Date V isits Requested Visits Authorized [id number] Closed Consult, Test & Treat 06/17/2021 06/17/2022 1 1 Reason for Visit * Consultation (Routine) - Closed Specialty Diagnoses / Procedures Referred By Geraldine olmedo Referred To Contact Cardiology Diagnoses Cardiomyopathy, unspecified Cardiomyopathy. Needs CMRI and referral to HF for family hx of CM *SCANNED DOCS Edie Ellis MD [address] [place] [address] Alla Nash MD [facility] [place] [address] Referral ID Status Reason Start Date Expiration Date Visits Re quested Visits Authorized [id number] Closed 04/09/2021 04/09/2022 1 1 Encounter Details Date Type Department Care Team (Late st Contact Info) Description 06/17/2021 9:00 AM EDT Office Visit Cardiology at [address] [place] [address] Alla Nash MD [facility] [place] [address] Kina Griffin PA [facility] [place] [address] Cardiomyopathy, unspecified type Social History Tobacco Use [...] the original note were not included. [facility] Section of Advanced Heart Failure Cardiology [facility] [address] [place], [place] [address] OUTPATIENT VISIT DATE: 06/09/21 OUTPATIENT VISIT TYPE: [...] Last syncopal event Aug 2020, admitted to [facility]. Loss of urine. Placed on Keppra, released [...] thus delayed admission. Called PCP. Directed to [facility]. Told this was a CHF exacerbation. CXR, [...] daily. ??? Lancets Misc by [facility]Non-Drug; Combo Route) route daily. ??? Miscellaneous Medical Supply Misc 1 strip by [facility]Non-Drug; Combo Route) route daily. ??? clonAZEpam (KLONOPIN) [...] Diuretic Lasix 20 mg daily ICD or CHOIR SINGER-D if indicated Not indicated with LVEF >35% [...] Attending Addendum I was the assigned attending lumber stacker operator for this clinical encounter. For the [...] in clinic after genetic testing to determine ferry terminal agent plan for follow up. Thank you for allowing us to participate in the care of this patient. For any additional questions,my pager is #[phone]. Alla Juárez MD MPH Advanced Heart Disease & Cardiac Transplant Attending 06/17/2021, 12:43 PM documented in this encounter Plan of Treatment Upcoming Encounters Date Type Department Care Team (Late st Contact Info) Description 10/05/2024 11:00 AM EST Appointment XRay at [address] [place] [address] 10/05/2024 1:10 PM [place] [address] Pricilla Finney MD [facility] [place] [address] 10/05/2024 1:10 PM [place] [address] Pricilla Finney MD [facility] [place] [address] 10/07/2024 10:00 AM EST Hospital Encounter Non[place] [address] Arrived Scheduled Referrals Name Type Priority Associated Diagnoses Orde r Schedule Referral to Genetics Outpatient Referral Routine Cardiomyopathy, unspecified type Ordered: 06/17/2021 documented as of this encounter Visit Diagnoses Diagnosis Cardiomyopathy, unspecified type documented in this encounter Care Teams Telephone Service Adviser Relationship Specialty Start Date End Date Edie Ellis MD [address] [place] [address] PCP - General 10/15/10 documented as of this encounter
--- OUTSIDE RECORDS SUMMARY | 2024-08-15 17:01 | XMS_ITS | Encounter Summary ---
Author Organization [facility] Address [facility] [place] [address] Care Team Providers Care Technical Operator Name Role Phone Edie Ellis MD Primary Care Provider [phone] Encounter Details Date Type Department Care Team (Latest Contact Info) Description 09/07/2013 8:10 AM EDT - 09/07/2013 3:32 PM EDT Hospital Encounter [place] [address] Suhas Tavares MD [facility] [place] [address] Cardiomyopathy; CAD (coronary artery disease) Discharge Disposition: [...] by your doctor, do not take any kues-lio-ffbruco medicines or herbal preparations without first discussing this with your doctor or pharmacist. There is the possibility of side effect and interactions when these are combined. Follow up Care Who to Call with Questions or Problems If there are any questions or problems that you think might be related to your cardiac cath or angioplasty, contact the watch mechanic carton forming machine adjuster by calling [facility] at . documented in this encounter [...] hours as needed. 04/29/2014 Lancets Misc by [facility]Non-Drug; Combo Route) route daily. 06/17/2021 Miscellaneous Medical Supply Mis 1 strip by [facility].(Non-Drug; Combo Route) [...] the Treatment of Subjects with de daniel Chit[place] Coronary Artery Lesions PI: Jonathan Silva MD Pager #:[phone] Research Coordinators: Hemant Muniz, BS, BA, SLEEVE FIXER Pager #:[phone] Santos Quach RN Pager #: [phone] Purpose: The pivotal trial to support the [place] pre-market approval (PMA) of Absorb BVS. ABSORB III will evaluate the safety and effectiveness of the Absorb BVS System compared to the XIENCE in the treatment of subjects, including those with diabetes mellitus, with ischemic heart disease caused by up to two [place] coronary artery lesions in separate epicardial vessels. [...] Target lesion(s) must be located in a [place] coronary artery with a visually estimated or quantitatively assessed %DS of >= 50% and < 100% with a TONYA flow of >= 1 and one of the following: stenosis >= 70%, an abnormal functional test (e.g., fractional flow reserve, stress test), unstable angina or post-infarct angina. a. Lesion(s) must be located in a [place] coronary artery with RVD by visual estimation of >= 2.50 mm and <= 3.75 mm. b. Lesion(s) must be located in a [place] coronary artery with length by visual estimation [...] the Treatment of Subjects with de daniel [place] Coronary Artery Lesions PI: Jonathan Silva MD Pager #:[phone] Research Coordinators: Hemant Muniz, BS, BA, SLEEVE FIXER Pager #:[phone] Santos Quach RN Pager #: [phone] Purpose: The pivotal trial to support the [place] pre-market approval (PMA) of Absorb BVS. ABSORB III will evaluate the safety and effectiveness of the Absorb BVS System compared to the XIENCE in the treatment of subjects, including those with diabetes mellitus, with ischemic heart disease caused by up to two [place] coronary artery lesions in separate epicardial vessels. [...] proceed to cath. Luke Luevano MD Pager [phone] Slide Forming Machine Tender documented in this encounter Procedure Notes * Provider, Scanning - 09/07/2013 7:22 PM EDTAssociated Order(s): SCAN DOC: CARDIAC CATH documented in this encounter Miscellaneous Notes * Miscellaneous - Provider, Scanning - 09/07/2013 7:22 PM EDT * Miscellaneous - Provider, Scanning - 09/07/2013 3:29 PM EDT * Discharge Summary - Suhas Tavares MD - 09/07/2013 11:44 AM EDT [facility] SAME DAY DISCHARGE SUMMARY Jammie Gottlieb 09/07/2013 Primary Care Provider: EDIE ELLIS MD Referring Crystalizer Operator: Taurus Menjivar MD Procedures: Left heart catheterization, [...] 11:00 AM EST Appointment XRay at [address] [place] [address] 10/05/2024 1:10 PM EST Appointment MRI at [facility] [place] [address] Pricilla Finney MD [facility] [place] [place] [address] 10/05/2024 1:10 PM [place] [address] Pricilla Finney MD [facility] [place] [address] 10/07/2024 10:00 AM EST Hospital Encounter Non-[place]vasive [place] [address] Arrived documented as of this [...] (Bezet) 469 ms MUSE SYSTEM Calculated P [place] 14 degrees MUSE SYSTEM Calculated R [place] 7 degrees MUSE SYSTEM Calculated T [place] 13 degrees MUSE SYSTEM INTERPRETATION Normal sinus rhythm Normal ECG When compared with ECG of 19-DEC-2009 12:47, No significant change was found Confirmed by Rainer Nova MD (49) on 09/09/2013 8:09:14 AM MUSE SYSTEM 09/07/2013 9:28 AM EDT 09/09/2013 8:09 AM EDT Joanthan Tapia MD ECG ORDERABLES MUSE SYSTEM documented in this encounter Visit Diagnoses Diagnosis Cardiomyopathy Other primary cardiomyopathies CAD (coronary artery disease) Coronary atherosclerosis of unspecified type of vessel, [place] or graft documented in this encounter Administered [...] Holly Carrion RN) Continuous Medication Order 09/05/2013 09/06/201309/07/2013 sodium chloride 0.9% infusion (CANCELED) 200 mL/hr, [...] RN) documented in this encounter Care Teams Technical Operator Relationship Specialty Start Date End Date Edie Ellis MD [address] [place] [address] PCP - General 10/15/10 documented as of this encounter
--- OUTSIDE RECORDS SUMMARY | 2024-08-15 17:02 | XMS_ITS | Encounter Summary ---
Author Organization [facility] Address [facility] [place] [address] Care Team Providers Care Fibreglass Laminator Name Role Phone Edie Ellis MD Primary Care Provider [phone] Encounter Details Date Type Department Care Team (Latest Contact Info) Description 06/03/2012 9:45 AM EDT - 06/03/2012 5:26 PM EDT Hospital Encounter [place] [address] [facility] [address] Discharge Disposition: Home Social History Tobacco Use [...] to call your physician or the hospital electric melt operator if you have any questions, and they will be happy to assist you. [facility] Anesthesia Department [address] [place] [address] * Patient Instructions* Heaven Mariano MD - [...] until we see you in clinic. Call [phone] with any questions. documented in this encounter [...] hours as needed. 04/29/2014 Lancets Misc by [facility]Non-Drug; Combo Route) route daily. 06/17/2021 Miscellaneous Medical Supply [facility] 1 strip by [facility].(Non-Drug; Combo Route) route daily. 06/17/2021 clonAZEpam (KLONOPIN) [...] Operative Note Patient Name: Jammie Gottlieb : [id number] MR#: [id number] Case Date: 06/03/2012 Surgeon: Surgeon(s) and Role: [...] Mariano MD - 06/03/2012 12:00 AM EDT [facility] Operative Note Patient Name: Jammie Gottlieb : [id number] MR#: [id number] Case Date: 06/03/2012 Surgeon: Surgeon(s) and Role: [...] 11:00 AM EST Appointment XRay at [address] [place] [address] 10/05/2024 1:10 PM [place] [address] [facility] [place] [address] 10/05/2024 1:10 PM [place] [address] [facility] [place] [address] 10/07/2024 10:00 AM EST Hospital Encounter Non-Invasive [place] [address] Arrived Pending Results Name Type Priority Associated [...] MD) documented in this encounter Care Teams Fibreglass Laminator Relationship Specialty Start Date End Date Edie Ellis MD [address] [facility] [address] [place] [address] PCP - General 10/15/10 documented as of this encounter
--- OUTSIDE RECORDS SUMMARY | 2024-08-15 17:02 | XMS_ITS | Referral Summary ---
Author Organization [facility] Address [address] [place] [address] Care Team Providers Care Slat Basket Maker Machine Name Role Phone Edie Ellis MD Primary Care Provider [phone] Social History Tobacco Use Types Packs/Day Years Used Date Smoking Tobacco: Never Assessed Interpersonal Safety Answer Date Record ed Physically Hurt Never 06/24/2020 Verbally Threaten Not on file 06/24/2020 Sex and Gender Information Value Date Recorded Sex Assigned at Not on file Gender Identity Not on file Sexual Orientation Not on file Plan of Treatment Not on file Care Teams Slat Basket Maker Machine Relationship Specialty Start Date End Date Edie Ellis MD [address] [place] [address] [address] [place] [address] PCP - General 03/21/19
--- OUTSIDE RECORDS SUMMARY | 2024-08-15 17:02 | XMS_ITS | Encounter Summary ---
Author Organization [facility] Address [address] [place] [address] Care Team Providers Care Line Cook Name Role Phone Unknown, Provider Primary Care Provider [phone] Encounter Details Date Type Department Care Team (Late st Contact Info) Description 03/15/2019 Results Only [facility] [phone] Oscar Irene MD [address] [place] [address] Social History Tobacco Use Types Packs/Day Years [...] ? RAMY GOTTLIEB ? Accession #: ? [id number] ? : ? 1975 (Age: 43) ??F ? Collect Date: ? 03/15/2019 ? Location: ? [facility] ? Receive Date: ? 03/16/2019 ? Provider: OSCAR IRENE MD Copy to: MANISHA KERR MD ? Final Pathologic Diagnosis: ENDOMETRIUM, CURETTAGE: - Inactive to weakly proliferative endometrium with papillary syncytial metaplasia and glandular and stromal breakdown. See comment. - Scant fragments of benign endocervical tissue. Comment: Candy Butcher slides of this case were reviewed at [...] (ASCP) 03/16/2019 4:20 PM End of Report [facility] 03/15/2019 15:4 1 EDT 03/16/2019 15:41 EDT Oscar Irene MD PATHOLOGY ORDERABLES [facility] [address] [place] [address] documented in this encounter Visit Diagnoses Not on filedocumented in this encounter Care Teams Line Cook Relationship Specialty Start Date End Date Unknown, Provider, PCP - General 10/04/15 03/20/19 documented as of this encounter
--- OUTSIDE RECORDS SUMMARY | 2024-08-15 17:02 | XMS_ITS | Encounter Summary ---
Author Organization [facility] Address [address] [place] [address] Care Team Providers Care Milking System Installer Name Role Phone Edie Ellis MD Primary Care Provider [phone] Encounter Details Date Type Department Care Team (Late st Contact Info) Description 11/27/2021 Lab Requisition [facility] Pathology & Laboratory Medicine - [facility] [address] [place], [place] [address] Outr Resulting Lab, Provider Social History Tobacco [...] ORDERABLES [facility] [address] [place] [address] documented in this encounter Visit Diagnoses Not on filedocumented in this encounter Care Teams Milking System Installer Relationship Specialty Start Date End Date Edie Ellis MD [address] [place] [phone] PCP - General 03/21/19 documented as of this encounter
--- OUTSIDE RECORDS SUMMARY | 2024-08-15 17:02 | XMS_ITS | Encounter Summary ---
Author Organization [facility] [place] [address] Care Team Providers Care Tierce Filler Name Role Phone Edie Ellis MD Primary Care Provider [phone] Encounter Details Date Type Department Care Team (Late st Contact Info) Description 05/19/2011 Orders Only [place] [address] Kelby Gill MD [facility] [place] [address] Social History Tobacco Use Types Packs/Day Years [...] 11:00 AM EST Appointment XRay at [address] [place] [address] 10/05/2024 1:10 PM [place] [address] Pricilla Finney MD [facility] [place] [address] 10/05/2024 1:10 PM [place] [address] Pricilla Finney MD [facility] [place] [address] 10/07/2024 10:00 AM EST Hospital Encounter Non-[place]vasive [place] [address] Arrived documented as of this encounter Visit Diagnoses Not on filedocumented in this encounter Care Teams Tierce Filler Relationship Specialty Start Date End Date Edie Ellis MD [facility] [address] [place] [address] PCP - General 10/15/10 documented as of this encounter
--- OUTSIDE RECORDS SUMMARY | 2024-08-15 17:02 | XMS_ITS | Encounter Summary ---
Author Organization [facility] Address [address] [place] [address] Care Team Providers Care Air Quality Chemist Name Role Phone Unavailable Primary Care Provider Unavailabl e Encounter Details Date Type Department Care Team (Late st Contact Info) Description 03/27/2003 Results Only [facility] [address] [place] [address] Edie Kerr MD [address] [facility] [address] [place] [address] Social History Tobacco Use Types [...] ? RAMY GOTTLIEB ? Accession #: ? [id number] : ? 1975 (Age: 27) ??F ?Collect [...] Kerr MD PATHOLOGY ORDERABLES [facility] [address] [place] [address] documented in this encounter Visit Diagnoses Not on filedocumented in this encounter
--- OUTSIDE RECORDS SUMMARY | 2024-08-15 17:02 | XMS_ITS | Encounter Summary ---
Author Organization [facility] Address [address] [place] [address] Care Team Providers Care Director Health Name Role Phone Edie Ellis MD Primary Care Provider [phone] Encounter Details Date Type Department Care Team (Late st Contact Info) Description 06/11/2020 Lab Requisition [facility] Pathology & Laboratory Medicine - [facility] [address] [place] [address] Oscar Keen MD [address] [place] [address] Infection following a procedure, organ and space [...] unspecified documented in this encounter Care Teams Director Health Relationship Specialty Start Date End Date Edie Ellis MD [facility] [address] [address] PCP - General 03/21/19 documented as of this encounter
--- OUTSIDE RECORDS SUMMARY | 2024-08-15 17:02 | XMS_ITS | Encounter Summary ---
Author Organization [facility] Address [address] [place] [address] Care Team Providers Care Conditioning Machine Operator Name Role Phone Unavailable Primary Care Provider Unavailabl e Encounter Details Date Type Department Care Team (Late st Contact Info) Description 03/02/2013 Results Only [facility] Laboratory Services - [facility] [address] [place], [place] [address] Edie Kerr MD [address] [facility] 1 [place] [address] Social History Tobacco Use Types [...] ? RAMY GOTTLIEB ? Accession #: ? [id number] ? : ? 1975 (Age: 37) ??F [...] types 16,18,31,33,35, 39,45,51,52,56,58, 59,66, and 68 by clocksmith mediated amplification. Comments Document reviewed and electronically signed by: ? System Interface ? Report date: 03/09/2013 By the signature above, the attending physician certifies that he/she has personally conducted a gross and/or microscopic examination of the described specimens and rendered or confirmed the above diagnosis. End of Report [facility] 03/02/2013 03/03/2013 Edie Kerr MD PATHOLOGY ORDERABLES [facility] [address] [place] [address] documented in this encounter Visit Diagnoses Not on filedocumented in this encounter
--- OUTSIDE RECORDS SUMMARY | 2024-08-15 17:02 | XMS_ITS | Encounter Summary ---
[place] [address] Care Team Providers Care Photo Technologist Name Role Phone Edie Ellis MD Primary Care Provider [phone] Reason for Visit * Reason Comments Back Pain ongoing pain, not re lieved by [facility]I Encounter Details Date Type Department Care Team (Late st Contact Info) Description 06/27/2011 Telephone [place] [phone] Tesha Wong RN Back Pain (ongoing pain, [...] questions were answered. She was transferred to [place] to schedule left LMBB's with Dr. Gill. Anticoagulants: No. Patient knows how to contact the Pain Management Center if any further questions or concerns occur. documented in this encounter Plan of Treatment Upcoming Encounters Date Type Department Care Team (Late st Contact Info) Description 10/05/2024 11:00 AM EST Appointment XRay at [address] [place] [address] 10/05/2024 1:10 PM [place] [address] Pricilla Finney MD [facility] [place] [address] 10/05/2024 1:10 PM [place] [address] Pricilla Finney MD [facility] [place] [address] 10/07/2024 10:00 AM EST Hospital Encounter Non-[place] [address] Arrived documented as of this encounter Visit Diagnoses Not on filedocumented in this encounter Care Teams Photo Technologist Relationship Specialty Start Date End Date Edie Ellis MD [address] [place] [address] PCP - General 10/15/10 documented as of this encounter
--- OUTSIDE RECORDS SUMMARY | 2024-08-15 17:02 | XMS_ITS | Encounter Summary ---
Author Organization [facility] Address [address] [place] [address] Care Team Providers Care Meat Smoker Name Role Phone Edie Ellis MD Primary Care Provider [phone] Encounter Details Date Type Department Care Team ([facility] Contact Info) Description 12/15/2019 Lab Requisition [facility] Pathology & Laboratory Medicine - [facility] [address] [place] [address] Unknown, Provider, Social History Tobacco Use Types [...] RESULT [facility] [address] [place] [address] * LH (12/15/2019 9:54 EST) Luteinizing Hormone [...] BLOOD GA S ORDERABLES Performing Organization Address City/State/[facility] Co de Phone Number [facility] [address] [place] [address] * FSH (12/15/2019 9:54 EST) [facility] 2.4 [...] ORDERABLES [facility] [address] [place] [address] documented in this encounter Visit Diagnoses Not on filedocumented in this encounter Care Teams Meat Smoker Relationship Specialty Start Date End Date Edie Ellis MD [address] [place] [phone] PCP - General 03/21/19 documented as of this encounter
--- OUTSIDE RECORDS SUMMARY | 2024-08-15 17:02 | XMS_ITS | Encounter Summary ---
Author Organization [facility] [place] [address] Care Team Providers Care Structural Technician Name Role Phone Edie Ellis MD Primary Care Provider [phone] Encounter Details Date Type Department Care Team (Late st Contact Info) Description 02/15/2010 Orders Only Obstetrics and Gynecology at [facility] [place] [address] Jessica Buchanan MD [facility] OBSTETRICS [place] [address] Social History Tobacco Use Types Packs/Day Years Used Date Smoking Tobacco: Never Assessed [facility] Inpatient Questions Answer Date Recorded Does [...] 10/05/2024 11:00 AM EST Appointment XRay at [address] [place] [address] 10/05/2024 1:10 PM [place] [address] Pricilla Finney MD [facility] [place] [address] 10/05/2024 1:10 PM [place] [address] Pricilla Finney MD [facility] [place] [address] 10/07/2024 10:00 AM EST Hospital Encounter Non-[place] [address] Arrived documented as of this encounter Procedures Procedure Name Priority Date/Time Associated Diagnosis Comments SURGICAL PATHOLOGY REPORT Routine 02/18/2010 10:26 AM EDT documented in this encounter Results * Surgical Pathology Report (02/18/2010 10:26 AM EDT) Surgical Pathology Report [id number] ? Location: ; [facility]; A The signing pathologist has (i) examined [...] parenchyma; (4) maternal surface with parenchyma; (5-8) senior human resources representative sections of surface with parenchyma; (5-8) [...] only in conjunction with standard diagnostic procedures. JONNY LAROSE 02/18/2010 10:2 6 AM EDT Jessica Buchanan MD PATHOLOGY/CYTOLOGY O RDERABLES [facility] documented in this encounter Visit Diagnoses Not on filedocumented in this encounter Additional Health Concerns Infection Onset Date Last Indicated Resolved Time Rule Out COVID-19 07/01/2021 07/01/2021 07/01/2021 12:54 PM EDT documented as of this encounter Care Teams Structural Technician Relationship Specialty Start Date End Date Edie Ellis MD [address] [place] [address] PCP - General 10/15/10 documented as of this encounter
--- OUTSIDE RECORDS SUMMARY | 2024-08-15 17:02 | XMS_ITS | Encounter Summary ---
Author Organization [facility] Address [address] [place] [address] Care Team Providers Care Staple Cutter Name Role Phone Edie Ellis MD Primary Care Provider [phone] Encounter Details Date Type Department Care Team ([facility] st Contact Info) Description 08/08/2021 Lab Requisition [facility] Pathology & Laboratory Medicine - [facility] [address], [place] [address] Outr Resulting Lab, Provider Social History Tobacco [...] Outr Resulting Lab MICROBIOLOGY - GENERAL ORDERABLES [facility] [address] [place] [address] * COVID-19 TESTING (08/07/2021 20:10 EDT) COVID-19 rt-PCR Result Negative Negative 08/09/2021 12:04 EDT [facility] Comment: This test has [...] performed using the julieta SARS-CoV-2 assay ([employer] on the Julieta 6800 System Performing Lab Julieta 6800 [facility] Lab 08/09/2021 12:04 EDT [facility] Swab 08/07/2021 20:1 0 EDT 08/08/2021 16:02 EDT Provider Outr Resulting Lab MICROBIOLOGY - GENERAL ORDERABLES [facility] [address] [place] [address] documented in this encounter Visit Diagnoses Not on filedocumented in this encounter Care Teams Staple Cutter Relationship Specialty Start Date End Date Edie Ellis MD [address] [place] [address] PCP - General 03/21/19 documented as of this encounter
--- OUTSIDE RECORDS SUMMARY | 2024-08-15 17:02 | XMS_ITS | Encounter Summary ---
Author Organization [facility] Address [facility] [place] [address] Care Team Providers Care Manager Renewable Energy Name Role Phone Edie Elils MD Primary Care Provider [phone] Encounter Details Date Type Department Care Team (Latest Contact Info) Description 03/28/2011 2:38 PM EDT - 03/28/2011 11:59 PM EDT Hospital [place] [address] CLINIC, Kelby Bravo MD [facility] [place] [address] Lumbar radiculopathy Discharge Disposition: Home Social History [...] 11:00 AM EST Appointment XRay at [address] [place] [address] 10/05/2024 1:10 PM [place] [address] Pricilla Finney MD [facility] [place] [address] 10/05/2024 1:10 PM [place] [address] Pricilla Finney MD [facility] [place] [address] 10/07/2024 10:00 AM EST Hospital Encounter Non-Invasive [place] [address] Arrived documented as of this [...] to the prior study. Kelby Gill MD IMG MRI ORDERABLE S documented in this encounter [...] Arm documented in this encounter Care Teams Manager Renewable Energy Relationship Specialty Start Date End Date Edie Ellis MD [address] [place] [address] PCP - General 10/15/10 documented as of this encounter
--- OUTSIDE RECORDS SUMMARY | 2024-08-15 17:02 | XMS_ITS | Encounter Summary ---
[place] [address] Care Team Providers Care Film Library Clerk Name Role Phone Edie Ellis MD Primary Care Provider [phone] Reason for Visit * Reason Onset Date Comments Back Pain 05/29/2011 s/p LESI 05/19/11 Encounter Details Date Type Department Care Team (Late st Contact Info) Description 05/29/2011 Telephone [place] [address] Tesha Wong RN Back Pain (s/p LESI [...] Center Post-Procedure Phone Note Patient: Jammie Gottlieb [id number] Post-procedure phone call from patient to report [...] 10/05/2024 11:00 AM EST Appointment XRay at [address] [place] [address] 10/05/2024 1:10 PM [place] [address] Pricilla Finney MD [facility] [place] [address] 10/05/2024 1:10 PM [place] [address] Pricilla Finney MD [facility] [place] [address] 10/07/2024 10:00 AM EST Hospital Encounter Non-[place] [address] Arrived documented as of this encounter Visit Diagnoses Not on filedocumented in this encounter Care Teams Film Library Clerk Relationship Specialty Start Date End Date Edie Ellis MD [address] [place] [address] PCP - General 10/15/10 documented as of this encounter
--- OUTSIDE RECORDS SUMMARY | 2024-08-15 17:02 | XMS_ITS | Encounter Summary ---
[place] [address] Care Team Providers Care Supervisor Picking Crew Name Role Phone Edie Ellis MD Primary Care Provider [phone] Reason for Visit * Reason Comments Pre Procedure Call Encounter Details Date Type Department Care Team (Late st Contact Info) Description 05/31/2012 Telephone [place] [phone] Madelyn Campa, RN Pre Procedure Call Social [...] Pre-Operative Information Phone Note Patient: Jammie Gottlieb [id number] Call placed to Jammie Gottlieb with information [...] any further questions or concerns. Madelyn Campa VALET SERVICE ATTENDANT documented in this encounter Plan of Treatment Upcoming Encounters Date Type Department Care Team (Late st Contact Info) Description 10/05/2024 11:00 AM EST Appointment XRay at [address] [place] [address] 10/05/2024 1:10 PM EST Appointment [place] [address] Pricilla Finney MD [facility] [place] [address] 10/05/2024 1:10 PM EST Appointment [place] [address] Pricilla Finney MD [facility] [place] [address] 10/07/2024 10:00 AM EST Hospital Encounter Non-Invasive [place] [address] Arrived documented as of this encounter Visit Diagnoses Not on filedocumented in this encounter Care Teams Supervisor Picking Crew Relationship Specialty Start Date End Date Edie Ellis MD [address] [place] [address] PCP - General 10/15/10 documented as of this encounter
--- OUTSIDE RECORDS SUMMARY | 2024-08-15 17:02 | XMS_ITS | Encounter Summary ---
Author Organization [facility] Address [address] [place] [address] Care Team Providers Care Aircraft Mechanic Structures Name Role Phone Unknown, Provider Primary Care Provider Encounter Details Date Type Department Care Team (Late st Contact Info) Description 02/15/2018 Results Only [facility] [phone] Edie Kerr MD [address] [facility] [address] [place] [address] Social History Tobacco Use Types [...] ? RAMY GOTTLIEB ? Accession #: ? [id number] ? : ? 1975 (Age: 42) ??F [...] types 16,18,31,33,35, 39,45,51,52,56,58, 59,66, and 68 by lead software tester mediated amplification. Comments Document reviewed and electronically signed by: ? System Interface ? Report date: 02/19/2018 By the signature above, the attending physician certifies that he/she has personally conducted a gross and/or microscopic examination of the described specimens and rendered or confirmed the above diagnosis. End of Report [facility] 02/15/2018 02/16/2018 Edie Kerr MD PATHOLOGY ORDERABLES [facility] [address] [place] [address] documented in this encounter Visit Diagnoses Not on filedocumented in this encounter Care Teams Aircraft Mechanic Structures Relationship Specialty Start Date End Date Unknown, Provider, PCP - General 10/04/15 03/20/19 documented as of this encounter
--- OUTSIDE RECORDS SUMMARY | 2024-08-15 17:02 | XMS_ITS | Encounter Summary ---
Author Organization [facility] Address [facility] [place] [address] Care Team Providers Care Dot Compliance Manager Name Role Phone Edie Ellis MD Primary Care Provider [phone] Reason for Visit * Reason Comments Backache Encounter Details Date Type Department Care Team (Latest Contact Info) Description 05/19/2011 9:00 AM EDT Office [place] [address] Kelby Gill MD [facility] [place] [address] Lumbar radiculopathy (Primary Dx) Discharge Disposition: Home [...] 2. 3. Patient states they have a drivers' cash clerk to transport after procedure? Yes 4. Patient [...] 11:00 AM EST Appointment XRay at [address] [place] [address] 10/05/2024 1:10 PM [place] [address] Pricilla Finney MD [facility] [place] [address] 10/05/2024 1:10 PM [place] [address] Pricilla Finney MD [facility] [place] [address] 10/07/2024 10:00 AM EST Hospital Encounter Non-[place] [address] Arrived documented as of this encounter Results [...] mg documented in this encounter Care Teams Dot Compliance Manager Relationship Specialty Start Date End Date Edie Ellis MD [facility] [address] [place] [address] PCP - General 10/15/10 documented as of this encounter
--- OUTSIDE RECORDS SUMMARY | 2024-08-15 17:02 | XMS_ITS | Encounter Summary ---
Author Organization [facility] Address [address] [place] [address] Care Team Providers Care Copier Field Service Technician Name Role Phone Edie Ellis MD Primary Care Provider [phone] Encounter Details Date Type Department Care Team (Late st Contact Info) Description 05/18/2022 Lab Requisition [facility] Pathology & Laboratory Medicine - [facility] [address] [place] [address] Outr Resulting Lab, Provider Social History Tobacco [...] on filedocumented in this encounter Care Teams Copier Field Service Technician Relationship Specialty Start Date End Date Edie Ellis MD [address] [place] [phone] PCP - General 03/21/19 documented as of this encounter
--- OUTSIDE RECORDS SUMMARY | 2024-08-15 17:02 | XMS_ITS | Encounter Summary ---
Author Organization [facility] Address [address] [place] [address] Care Team Providers Care Garment Patternmaker Name Role Phone Unavailable Primary Care Provider Unavailabl e Encounter Details Date Type Department Care Team (Late st Contact Info) Description 09/14/2000 Results Only [facility] conversion [address] [place] [address] Unknown, Provider, Social History Tobacco Use Types [...] UNIT COLLECT ORDERABLES [facility] [address] [place] [address] documented in this encounter Visit Diagnoses Not on filedocumented in this encounter
--- OUTSIDE RECORDS SUMMARY | 2024-08-15 17:02 | XMS_ITS | Encounter Summary ---
[place] [address] Care Team Providers Care Bit Grinder Name Role Phone Edie Ellis MD Primary Care Provider [phone] Reason for Visit * Reason Comments Back Pain Encounter Details Date Type Department Care Team (Late st Contact Info) Description 01/30/2012 Tele[place] [address] Madelyn Campa, RN Back Pain Social History [...] to do. She had an MRI at [facility] but doesn't think she could tolerate the [...] 11:00 AM EST Appointment XRay at [address] [place] [address] 10/05/2024 1:10 PM [place] [address] Pricilla Finney MD [facility] [place] [address] 10/05/2024 1:10 PM [place] [address] Pricilla Finney MD [facility] [place] [address] 10/07/2024 10:00 AM EST Hospital Encounter Non-[place]vasive [place] [address]1000 Arrived documented as of this encounter Visit Diagnoses Not on filedocumented in this encounter Care Teams Bit Grinder Relationship Specialty Start Date End Date Edie Ellis MD [address] [place] [address] PCP - General 10/15/10 documented as of this encounter
--- OUTSIDE RECORDS SUMMARY | 2024-08-15 17:02 | XMS_ITS | Encounter Summary ---
Author Organization [facility] Address [facility] [place] [address] Care Team Providers Care Control Room Tender Name Role Phone Edie Ellis MD Primary Care Provider [phone] Reason for Visit * Reason Comments Backache Pain In Limb Encounter Details Date Type Department Care Team (Late st Contact Info) Description 03/28/2011 10:45 AM EDT Office [place] [address] Deysi Sterling MD [facility] [place] [address] Lumbar radiculopathy (Primary Dx) Discharge Disposition: Home [...] diabetes mellitus. Social History: She lives in [place], [place] with her and 3 children. She [...] 10/05/2024 11:00 AM EST Appointment XRay at [address] [place] [address] 10/05/2024 1:10 [place] [address] Pricilla Finney MD [facility] [place] [address] 10/05/2024 1:10 [place] [address] Pricilla Finney MD [facility] [place] [address] 10/07/2024 10:00 AM EST Hospital Encounter Non-Invasive [place] [address] Arrived documented as of this encounter Visit Diagnoses Diagnosis Lumbar radiculopathy- Primary Thoracic or lumbosacral neuritis or radiculitis, unspecified documented in this encounter Care Teams Control Room Tender Relationship Specialty Start Date End Date Edie Ellis MD [facility] [address] [place] [address] PCP - General 10/15/10 documented as of this encounter
--- OUTSIDE RECORDS SUMMARY | 2024-08-15 17:02 | XMS_ITS | Encounter Summary ---
Author Organization [facility] Address [facility] [place] [address] Care Team Providers Care Linseed Cake Trimmer Name Role Phone Edie Ellis MD Primary Care Provider [phone] Encounter Details Date Type Department Care Team (Late st Contact Info) Description 05/19/2011 9:30 AM EDT - 05/19/2011 9:59 AM EDT Hospital Encounter XRay at [address] [place] [address] Social History Tobacco Use Types Packs/Day Years [...] 11:00 AM EST Appointment XRay at [address] [place] [address] 10/05/2024 1:10 PM [place] [address] Pricilla Finney MD [facility] [place] [address] 10/05/2024 1:10 PM [place] [address] Pricilla Finney MD [facility] [place] [address] 10/07/2024 10:00 AM EST Hospital Encounter Non-[place] [address] Arrived documented as of this encounter Visit Diagnoses Not on filedocumented in this encounter Care Teams Linseed Cake Trimmer Relationship Specialty Start Date End Date Edie Ellis MD [facility] [address] [place] [address] PCP - General 10/15/10 documented as of this encounter
--- OUTSIDE RECORDS SUMMARY | 2024-08-15 17:02 | XMS_ITS | Encounter Summary ---
Author Organization [facility] [place] [address] Care Team Providers Care Felt Tipping Machine Tender Name Role Phone Edie Ellis MD Primary Care Provider [phone] Encounter Details Date Type Department Care Team (Late st Contact Info) Description 12/26/2011 [place] [address]1000 Jamie Dickinson MD [facility] [place] [address] Social History Tobacco Use Types Packs/Day Years [...] 11:00 AM EST Appointment XRay at [address] [place] [address] 10/05/2024 1:10 PM [place] [address]1000 Pricilla Finney MD [facility] NEUROLOGY DEPT [place], [place] [address] 10/05/2024 1:10 PM [place] [address] Pricilla Finney MD [facility] [place] [address] 10/07/2024 10:00 AM EST Hospital Encounter Non-[place] [address]1000 Arrived documented as of this encounter Visit Diagnoses Not on filedocumented in this encounter Care Teams Felt Tipping Machine Tender Relationship Specialty Start Date End Date Edie Ellis MD [address] [place] [address] [address] [place] [address] PCP - General 10/15/10 documented as of this encounter
--- OUTSIDE RECORDS SUMMARY | 2024-08-15 17:02 | XMS_ITS | Encounter Summary ---
Author Organization [facility] Address [facility] [address]enna [address] [place] [id number] Care Team Providers Care Historical Records Administrator Name Role Phone Edie Ellis MD Primary Care Provider [phone] Reason for Referral * Psychiatric (Routine) - Complete - Patient Seen (External Appt Consult Notes Rcv'd) Specialty Diagnoses / Procedures Referred By Geraldine olmedo Referred To Contact Psychiatry Diagnoses Thoracic or lumbosacral neuritis or radiculitis, unspecified Kelby Gill MD [facility] [place] [address] Jazmin Angulo, PhD [facility] [place] [address] Referral ID Status Reason Start Date Expiration Date Visits Requested Visits Authorized [id number] Complete - Patient Seen (External Appt Consult Notes Rcv'd) Consult, Test & Treat 12/12/2011 06/09/2012 1 1 Encounter Details Date Type Department Care Team (Late st Contact Info) Description 12/12/2011 Orders Only [place] [address] Kelby Gill MD [facility] [place] [address] Thoracic or lumbosacral neuritis or [...] 11:00 AM EST Appointment XRay at [address] [place] [phone] 10/05/2024 1:10 PM [place] [address] Pricilla Finney MD [facility] [place] [place] [address] 10/05/2024 1:10 PM [place] [address] Pricilla Finney MD [facility] [place] [place] [address] 10/07/2024 10:00 AM EST Hospital Encounter Non-Invasive Cardiology Lab [address] Arrived Scheduled Referrals Name Type Priority Associated Diagnoses Orde r Schedule REFERRAL TO PSYCHIATRY Outpatient Referral Routine Thoracic or lumbosacral neuritis or radiculitis, unspecified Ordered: 12/12/2011 documented as of this encounter Visit Diagnoses Diagnosis Thoracic or lumbosacral neuritis or radiculitis, unspecified- Primary documented in this encounter Care Teams Historical Records Administrator Relationship Specialty Start Date End Date Edie Ellis MD [facility] [address] [place] [address] PCP - General 10/15/10 documented as of this encounter
--- OUTSIDE RECORDS SUMMARY | 2024-08-15 17:02 | XMS_ITS | Encounter Summary ---
Author Organization [facility] [place] [address] Care Team Providers Care Child Watch Attendant Name Role Phone Edie Ellis MD Primary Care Provider [phone] Reason for Visit * Reason Comments Backache Encounter Details Date Type Department Care Team (Late st Contact Info) Description 12/08/2011 10:45 AM EST [place] [address] Kelby Gill MD [facility] [place] [address] Lumbar radiculopathy (Primary Dx) Discharge Disposition: Home [...] 10/05/2024 11:00 AM EST Appointment XRay at [address] [place] [address] 10/05/2024 1:10 PM [place] [address] Pricilla Finney MD [facility] [place] [address] 10/05/2024 1:10 PM [place] [address] Pricilla Finney MD [facility] [place] [address] 10/07/2024 10:00 AM EST Hospital Encounter Non-Invasive [place] [address] Arrived documented as of this encounter Visit Diagnoses Diagnosis Lumbar radiculopathy- Primary Thoracic or lumbosacral neuritis or radiculitis, unspecified documented in this encounter Care Teams Child Watch Attendant Relationship Specialty Start Date End Date Edie Ellis MD [facility] [address] [place] [address] PCP - General 10/15/10 documented as of this encounter
--- OUTSIDE RECORDS SUMMARY | 2024-08-15 17:02 | XMS_ITS | Encounter Summary ---
Author Organization [facility] Address [address] [place] [address] Care Team Providers Care Hotel Office Manager Name Role Phone Edie Ellis MD Primary Care Provider Encounter Details Date Type Department Care Team ([facility] st Contact Info) Description 07/09/2022 Lab Requisition [facility] Pathology & Laboratory Medicine - [facility] [address], [place] [address] Outr Resulting Lab, Provider Social History Tobacco [...] Name Priority Date/Time Associated Diagnosis Comments URINE [id number] NE RATIO (ACR) Routine 07/09/2022 8:55 EDT documented in this encounter Results * URINE [id number] RATIO (ACR) (07/09/2022 8:55 EDT) Albumin, Urine <0.6 See Note mg/dL 07/09/2022 22:49 EDT [facility] Comment: NOTE: Reference range not established Creatinine, Urine 105.0 See Note mg/dL 07/09/2022 22:49 EDT [facility] Comment: NOTE: Reference range not established Lab Urine Albumin to Creatinine Ratio 07/09/2022 22:49 EDT [facility] Comment: Unable to calculate due to albumin result <0.6. Urine Albumin/Creatinine Ratio: Normal: <30 ug/mg Creatinine Moderately increased albuminuria: 30-300 ug/mg Creatinine Alisia increased albuminuria: >300 ug/mg Creatinine Urine URINE SPECIMEN COLLECTION, CLEAN CATCH / Unknown 07/09/2022 8:55 EDT 07/09/2022 21:18 EDT Provider Outr Resulting Lab CHEMISTRY & BLOOD GAS ORDERABLES [facility] [address] [place] [address] documented in this encounter Visit Diagnoses Not on filedocumented in this encounter Care Teams Hotel Office Manager Relationship Specialty Start Date End Date Edie Ellis MD [address] [place] [phone] PCP - General 03/21/19 documented as of this encounter
--- OUTSIDE RECORDS SUMMARY | 2024-08-15 17:02 | XMS_ITS | Encounter Summary ---
Author Organization [facility] [place] [address] Care Team Providers Care Co Op Name Role Phone Edie Ellis MD Primary Care Provider [phone] Encounter Details Date Type Department Care Team (Late st Contact Info) Description 03/26/2011 Abstract [place] [phone] Kelby Gill MD [facility] [place] [address] Social History Tobacco Use Types Packs/Day Years [...] 11:00 AM EST Appointment XRay at [address] [place] [phone] 10/05/2024 1:10 PM [place] [address] Pricilla Finney MD [facility] [place] [address] 10/05/2024 1:10 PM [place] [phone] Pricilla Finney MD [facility] [place] [address] 10/07/2024 10:00 AM EST Hospital Encounter [place] [phone] Arrived documented as of this encounter Visit Diagnoses Not on filedocumented in this encounter Care Teams Co Op Relationship Specialty Start Date End Date Edie Ellis MD [address] [place] [address] [facility] [address] [place] [address] PCP - General 10/15/10 documented as of this encounter
--- OUTSIDE RECORDS SUMMARY | 2024-08-15 17:02 | XMS_ITS | Encounter Summary ---
Author Organization [facility] Address [address] [place] [address] Care Team Providers Care Criminal Psychologist Name Role Phone Edie Ellis MD Primary Care Provider [phone] Encounter Details Date Type Department Care Team ([facility] st Contact Info) Description 08/28/2020 Lab Requisition [facility] Pathology & Laboratory Medicine - [facility] [address] [place], [place] [address] Outr Resulting Lab, Provider Social History Tobacco [...] Outr Resulting Lab MICROBIOLOGY - GENERAL ORDERABLES [facility] [address] [place] [address] * COVID-19 TESTING (08/28/2020 0:40 EDT) COVID-19 rt-PCR Result Negative Negative 08/28/2020 12:58 EDT [facility] Comment: This test [...] history, and epidemiological information. Performed on the Doctor [employer] Fusion instrument Performing Lab [facility] Lab 08/28/2020 12:58 EDT [facility] Swab 08/28/2020 0:40 EDT 08/28/2020 8:59 EDT Provider Outr Resulting Lab MICROBIOLOGY - GENERAL ORDERABLES [facility] [address] [place] [address] documented in this encounter Visit Diagnoses Not on filedocumented in this encounter Care Teams Criminal Psychologist Relationship Specialty Start Date End Date Edie Ellis MD [address] [place] [phone] PCP - General 03/21/19 documented as of this encounter
--- OUTSIDE RECORDS SUMMARY | 2024-08-15 17:02 | XMS_ITS | Encounter Summary ---
Author Organization [facility] Address [address] [place] [address] Care Team Providers Care Expanding Machine Operator Name Role Phone Edie Ellis MD Primary Care Provider [phone] Encounter Details Date Type Department Care Team ([facility] st Contact Info) Description 03/22/2023 Lab Requisition [facility] Pathology & Laboratory Medicine - [facility] [address] [place], [place] [address] Outr Resulting Lab, Provider Social History Tobacco [...] gonorrhoeae Result Negative Negative 03/23/2023 12:55 EDT [facility] Chlamydia trachomatis Result Negative Negative 03/23/2023 12:55 EDT [facility] Swab ENTIRE VAGINA / Unknown 03/21/2023 12:27 EDT 03/22/2023 17:27 EDT Provider Outr Resulting Lab MICROBIOLOGY - GENERAL ORDERABLES [facility] [address] [place] [address] documented in this encounter Visit Diagnoses Not on filedocumented in this encounter Care Teams Expanding Machine Operator Relationship Specialty Start Date End Date Edie Ellis MD [address] [place] [phone] PCP - General 03/21/19 documented as of this encounter
--- OUTSIDE RECORDS SUMMARY | 2024-08-15 17:02 | XMS_ITS | Encounter Summary ---
Author Organization [facility] Address [address] [place] [address] Care Team Providers Care Pattern Shop Supervisor Name Role Phone Unavailable Primary Care Provider Unavailabl e Encounter Details Date Type Department Care Team (Late st Contact Info) Description 02/21/2000 Results Only [facility] - Map conversion [address] [place] [address] Melodie Salguero CNM [facility] [place], [place] [phone] Social History Tobacco Use Types Packs/Day Years [...] ? RAMY GOTTLIEB ? Accession #: ? [id number] : ? 1975 (Age: 24) ??F ?Collect Date: ? 02/21/2000 Location: ?Receive Date: ? 02/21/2000 Provider: ?ANEA LELONG CNM Copy to: ?ANEA LELONG CNM ? Specimen/Source: ?Pap Smear (One Slide) Last Menstrual Period: ? GYNECOLOGIC ??CYTOPATHOLOGY ??REPORT Name: JELLY GOTTLIEBVISHAL Smiley ?[facility] : 1975 ?? 24Y F ?Client ID: [id number] SS#: [id number] ? Clinician: LELONG CNM, ANEA ?? Location: [facility] ??Copy to: ?? Specimen: ?Pap Smear [...] Salguero CNM PATHOLOGY ORDERABLES [facility] [address] [place] [address] documented in this encounter Visit Diagnoses Not on filedocumented in this encounter
--- OUTSIDE RECORDS SUMMARY | 2024-08-15 17:02 | XMS_ITS | Encounter Summary ---
Author Organization [facility] Address [address] [place] [address] Care Team Providers Care Industrial Therapist Name Role Phone Unknown, Provider Primary Care Provider [phone] Encounter Details Date Type Department Care Team (Latest Contact Info) Description 03/15/2019 9:46 EDT - 03/15/2019 23:59 EDT Hospital Encounter [address] [address] Unknown, Provider, Discharge Disposition: Home or Self Care Social History Tobacco Use Types Packs/Day Years Used Date Smoking Tobacco: Never Assessed Sex and Gender Information Value Date Recorded Sex Assigned at Not on file Gender Identity Not on file Sexual Orientation Not on file documented as of this encounter Discharge Disposition Disposition Code Departure Means Destination Home or Self Mcfp documented in this encounter Plan of Treatment Not on file documented as of this encounter Visit Diagnoses Not on filedocumented in this encounter Care Teams Industrial Therapist Relationship Specialty Start Date End Date Unknown, Provider, PCP - General 10/04/15 03/20/19 documented as of this encounter
--- OUTSIDE RECORDS SUMMARY | 2024-08-15 17:02 | XMS_ITS | Encounter Summary ---
Author Organization [facility] [place] [address] Care Team Providers Care Felt Checker Name Role Phone Edie Ellis MD Primary Care Provider [phone] Encounter Details Date Type Department Care Team (Late st Contact Info) Description 01/30/2012 [place] [phone] Jamie Dickinson MD [facility] [place] [address] Social History Tobacco Use Types Packs/Day Years [...] 11:00 AM EST Appointment XRay at [address] [place] [phone] 10/05/2024 1:10 PM [place] [phone] Pricilla Finney MD [facility] NEUROLOGY DEPT [place], [place] [phone] 10/05/2024 1:10 [place] [phone] Pricilla Finney MD [facility] [place] [address] 10/07/2024 10:00 AM EST Hospital Encounter Non[place] [phone] Arrived documented as of this encounter Visit Diagnoses Not on filedocumented in this encounter Care Teams Felt Checker Relationship Specialty Start Date End Date Edie Ellis MD [address] [place] [address] [address] [place] [address] PCP - General 10/15/10 documented as of this encounter
--- OUTSIDE RECORDS SUMMARY | 2024-08-15 17:02 | XMS_ITS | Encounter Summary ---
Author Organization [facility] [place] [address] Care Team Providers Care Test Director Name Role Phone Edie Ellis MD Primary Care Provider [phone] Encounter Details Date Type Department Care Team (Late st Contact Info) Description 05/19/2011 Orders [place] [phone] Kelby Gill MD [facility] [place] [address] Social History Tobacco Use Types Packs/Day Years [...] 11:00 AM EST Appointment XRay at [address] [place] [phone] 10/05/2024 1:10 PM [place] [phone] Pricilla Finney MD [facility] [place] [address] 10/05/2024 1:10 PM [place] [address] Pricilla Finney MD [facility] [place] [address] 10/07/2024 10:00 AM EST Hospital Encounter Non[place] [address] Arrived documented as of this encounter Procedures Procedure Name Priority Date/Time Associated Diagnosis Comments FILM LIBRARY STORAGE ONLY PAIN CLINIC C ARM Routine 05/19/2011 5:52 PM EDT documented in this encounter Results * FILM LIBRARY-STORAGE ONLY PAIN CLINIC C-ARM (05/19/2011 5:52 PM EDT) 05/19/2011 5:52 PM EDT Narrative [facility] - 03/28/2014 7:50 PM EDT This is a non-reportable exam. Procedure Note [facility] - 03/28/2014 This is a non-reportable exam. Kelby Gill MD IMG FILM LIBRARY ORDERABLES [facility] [address] [facility] [address] documented in this encounter Visit Diagnoses Not on filedocumented in this encounter Care Teams Test Director Relationship Specialty Start Date End Date Edie Ellis MD [facility] MORALES [address] [place] [address] PCP - General 10/15/10 documented as of this encounter
--- OUTSIDE RECORDS SUMMARY | 2024-08-15 17:02 | XMS_ITS | Encounter Summary ---
Author Organization [facility] Address [address] [place] [address] Care Team Providers Care Wheel Borer Name Role Phone Edie Ellis MD Primary Care Provider [phone] Encounter Details Date Type Department Care Team (Late st Contact Info) Description 05/21/2020 Lab Requisition [facility] Pathology & Laboratory Medicine - [facility] [address] [place] [address] Oscar Keen MD [address] [place] [address] Excessive and frequent menstruation with regular cycle; [...] - No specific pathologic features. 05/27/2020 8:42 [facility] at 0842 Attestation There was significant resident/fellow involvement in the diagnostic evaluation of this case. By the signature below, the attending physician certifies that they have personally conducted a gross and/or microscopic examination of the described specimens and rendered or confirmed the above diagnosis. 05/27/2020 8:42 [facility] at 0842 Clinical History Menorrhagia, dysmenorrhea, history of endometrial ablation 05/27/2020 8:42 [facility] Gross Description A. Received in [...] fimbriated ends are not definitively identified bilaterally. Trolley Worker sections are submitted as follows: BLOCK RUSSELL A1- title insurance sales representative right ovary A2- title insurance sales representative right fallopian tube including sections from each end A3- title insurance sales representative left ovary to include cystic spaces A4- title insurance sales representative left fallopian tube including sections from each end A5- anterior cervix A6-A7- title insurance sales representative full thickness anterior endomyometrium A8- anterior lower uterine segment A9- anterior myometrial/serosa l cyst A10- posterior cervix A11-A12- full-thickness posterior endomyometrium A13-14 posterior lower uterine segment Emmanuel Arnold, 05/22/2020 14:25 05/27/2020 8:42 EDT [facility] Resident/Sukhjinder w: Emmanuel Arnold, 05/27/2020 8:42 EDT [facility] Scanned Images 05/27/2020 8:42 EDT [facility] Tissue SPECIMEN FROM UTERUS / Unknown 05/18/2020 14:35 EDT 05/21/2020 17:54 EDT Oscar Keen MD PATHOLOGY ORDERABLES [facility] [address] [place] [address] documented in this encounter Visit Diagnoses Diagnosis Excessive and frequent menstruation with regular cycle Excessive or frequent menstruation Other specified postprocedural states documented in this encounter Care Teams Wheel Borer Relationship Specialty Start Date End Date Edie Ellis MD [address] [place] [phone] PCP - General 03/21/19 documented as of this encounter
--- OUTSIDE RECORDS SUMMARY | 2024-08-15 17:02 | XMS_ITS | Encounter Summary ---
Author Organization [facility] Address [address] [place] [address] Care Team Providers Care Acting Section Chief Name Role Phone Unavailable Primary Care Provider Unavailabl e Encounter Details Date Type Department Care Team (Late st Contact Info) Description 10/27/2000 Results Only [facility] - [place] conversion [address] [place] [address] Tom Koehler MD [address] [place] [address] Social History Tobacco Use Types [...] ? RAMY GOTTLIEB ? Accession #: ? [id number] : ? 1975 (Age: 25) ??F ?Collect [...] Koehler MD PATHOLOGY ORDERABLES [facility] [address] [place] [address] documented in this encounter Visit Diagnoses Not on filedocumented in this encounter
--- OUTSIDE RECORDS SUMMARY | 2024-08-15 17:02 | XMS_ITS | Encounter Summary ---
Author Organization [facility] Address [address] [place] [address] Care Team Providers Care Vehicle Fuel Systems Converter Name Role Phone Unavailable Primary Care Provider Unavailabl e Encounter Details Date Type Department Care Team (Late st Contact Info) Description 01/05/2006 Results Only [facility] conversion [address] [place] [address] Edie Kerr MD [address] [facility] [address] [address] [place] [address] Social History Tobacco Use Types [...] ? RAMY GOTTLIEB ? Accession #: ? [id number] : ? 1975 (Age: 30) ??F ?Collect Date: ? 01/05/2006 Location: ? [facility] ? Receive Date: ? 01/06/2006 Provider: ?EDIE KERR MD Copy to: ? Specimen/Source: ?ThinPrep Pap Test, Cervix/Endocervix, processed on [employer] ThinPrep Imaging System, with manual evaluation Last [...] Kerr MD PATHOLOGY ORDERABLES Performing Organization Address City/State/[facility] Co de Phone Number [facility] [address] [place] [address] documented in this encounter Visit Diagnoses Not on filedocumented in this encounter
--- OUTSIDE RECORDS SUMMARY | 2024-08-15 17:02 | XMS_ITS | Encounter Summary ---
Author Organization [facility] Address [address] [place] [address] Care Team Providers Care Project Developer Name Role Phone Unavailable Primary Care Provider Unavailabl e Encounter Details Date Type Department Care Team (Late st Contact Info) Description 05/05/2004 Results Only [facility] conversion [address] [place] [address] Gaudencio Calvin, DO [facility] [place] [address] Social History Tobacco Use Types Packs/Day Years [...] ? RAMY GOTTLIEB ? Accession #: ? [id number] ? : ? 1975 (Age: 28) ??F [...] Gross Description: ? Received in formalin labeled Foreman and L5-S1 disc are four johnson-yellow to white portions of fibrocartilaginous tissue which measure 1.5 x 1.5 x 1.0 cm in aggregate. ??No definitive nodule is identified. ??No sections submitted. Gross only. ??(Ihsan Bailey/[facility] End of Report [facility] 05/05/2004 05/06/2004 14: 39 EDT Gaudencio Calvin DO PATHOLOGY ORDERAB LES [facility] [address] [place] [address] documented in this encounter Visit Diagnoses Not on filedocumented in this encounter
--- OUTSIDE RECORDS SUMMARY | 2024-08-15 17:02 | XMS_ITS | Encounter Summary ---
Author Organization [facility] Address [facility] [place] [address] Care Team Providers Care Creel Selector Name Role Phone Edie Ellis MD Primary Care Provider [phone] Encounter Details Date Type Department Care Team (Late st Contact Info) Description 06/03/2012 11:59 AM EDT Anesthesia Event [place] [address] Chika Suárez MD [facility] [place] [address] Car Kaiser, SPUN PASTE MACHINE OPERATOR [address] [place] [address] Anesthesia Record Procedure Summary Procedure Name Responsible [...] induction Plan discussed with medical student and SPUN PASTE MACHINE OPERATOR. documented in this encounter Miscellaneous Notes * Addendum Note - Chika Suárez MD - 06/21/2012 3:15 PM EDT Addendum created 06/21/121514 by Chika Suárez MD Modules edited:Anesthesia Review and Sign Navigator Section, Flowsheet VN, Inpatient Notes Flowsheet [id number] Procedural Verification * Addendum Note - Chika Suárez MD - 06/21/2012 3:15 PM EDT Addendum created 06/21/121514 by Chika Suárez MD Modules edited:Anesthesia Review and Sign Navigator Section, Flowsheet VN, Inpatient Notes Flowsheet [id number] Procedural Verification documented in this encounter Plan of Treatment Upcoming Encounters Date Type Department Care Team (Late st Contact Info) Description 10/05/2024 11:00 AM EST Appointment XRay at [address] [place] [phone] 10/05/2024 1:10 PM EST [place] [address] Pricilla Finney MD [facility] [place] [address] 10/05/2024 1:10 PM EST [place] [address] Pricilla Finney MD [facility] [place] [address] 10/07/2024 10:00 AM EST Hospital Encounter Non-Invasive [place] [address] Arrived documented as of this encounter Visit Diagnoses Not on filedocumented in this encounter Care Teams Creel Selector Relationship Specialty Start Date End Date Edie Ellis MD [facility] MORALES GRANADOS [email or web address] [address] [place] [address] PCP - General 10/15/10 documented as of this encounter
--- OUTSIDE RECORDS SUMMARY | 2024-08-15 17:02 | XMS_ITS | Encounter Summary ---
Author Organization [facility] Address [address] [place] [address] Care Team Providers Care Netting Inspector Name Role Phone Edie Ellis MD Primary Care Provider [phone] Encounter Details Date Type Department Care Team (Late st Contact Info) Description 05/12/2022 Lab Requisition [facility] Pathology & Laboratory Medicine - [facility] [address] [place] [address] Ioana Khan MD [address] [place] [address],[place] [address] Encounter for other general examination Social History [...] management options, if applicable. 05/15/2022 8:54 EDT [facility] Final Diagnosis A. URINARY BLADDER, POSTERIOR WALL, BIOPSY: - Urothelial tissue with sub-epithelial capillary congestion and surface reactive epithelial changes. See comment. - Muscularis propria is present. 05/15/2022 8:54 [facility] Diagnosis Comment The biopsies consists of urothelial tissue with sub-epithelial capillary congestion. The surface urothelium is partially denuded, however, where intact shows mild reactive changes. There is no evidence of carcinoma or high grade dysplasia in the biopsy material. Senior Electronics Engineer slides of this case were reviewed at the intradepartmental consultation conference. Deeper sections have been examined of block A1 and A2. 05/15/2022 8:54 [facility] Attestation There was significant resident/fellow involvement in the diagnostic evaluation of this case. By the signature below, the attending physician certifies that they have personally conducted a gross and/or microscopic examination of the described specimens and rendered or confirmed the above diagnosis. 05/15/2022 8:54 [facility] at 0854 Clinical History Erythematous patch posterior bladder wall, smoker 05/15/2022 8:54 [facility] Gross Description A. Received in [...] A2. CAESAR OSEI 05/12/2022 13:53 05/15/2022 8:54 [facility] Resident/Fell ow: Andressa Orlando DO 05/15/2022 8:54 T [facility] Performing Lab [facility] 05/15/2022 8:54 [facility] Scanned Images 05/15/2022 8:54 [facility] Tissue URINARY BLADDER BIOPSY SPECIMEN / Unknown 05/09/2022 12:47 EDT 05/12/2022 8:16 EDT Ioana Khan MD PATHOLOGY ORDERABLES [facility] [address] [place] [address] documented in this encounter Visit Diagnoses Diagnosis Encounter for other general examination documented in this encounter Care Teams Netting Inspector Relationship Specialty Start Date End Date Edie Ellis MD [address] [place] [phone] PCP - General 03/21/19 documented as of this encounter
--- OUTSIDE RECORDS SUMMARY | 2024-08-15 17:02 | XMS_ITS | Encounter Summary ---
Author Organization [facility] [place] [address] Care Team Providers Care Computer Systems Technology Instructor Name Role Phone Edie Ellis MD Primary Care Provider [phone] Reason for Visit * Reason Comments Low Back Pain Back Pain Encounter Details Date Type Department Care Team (Late st Contact Info) Description 02/02/2012 8:20 AM EDT [place] [address] Jamie Dickinson MD [facility] [place] [address] Back pain (Primary Dx) Discharge Disposition: Home [...] 10:24 AM EDT Copy: Kelby Gill M.D. [facility] Chief Complaint: Jammie Gottlieb is a 36-year-old woman, seen in referral from Kelby Gill M.D. for back and left leg pain. History of Present Illness: She underwent surgery in 2003 for left sciatica at [facility]. This was not a good [...] back and tenderness with palpation of the [id number]. Imaging Studies: Review of her lumbar MRI [...] 10/05/2024 11:00 AM EST Appointment XRay at [address] [place] [address] 10/05/2024 1:10 PM [place] [phone] Pricilla Finney MD [facility] [place] [address] 10/05/2024 1:10 PM [place] [address] Pricilla Finney MD [facility] [place] [address] 10/07/2024 10:00 AM EST Hospital Encounter Non[place] [address] Arrived documented as of this encounter Visit Diagnoses Diagnosis Back pain- Primary Backache, unspecified documented in this encounter Care Teams Computer Systems Technology Instructor Relationship Specialty Start Date End Date Edie Ellis MD Tsering SCHULTZ [address] [place] [id number] PCP - General 10/15/10 documented as of this encounter
--- OUTSIDE RECORDS SUMMARY | 2024-08-15 17:02 | XMS_ITS | Encounter Summary ---
Author Organization [facility] Address [address] [place] [address] Care Team Providers Care Residential Appliance Repair Technician Name Role Phone Edie Ellis MD Primary Care Provider [phone] Encounter Details Date Type Department Care Team ([facility] st Contact Info) Description 01/21/2023 Lab Requisition [facility] Pathology & Laboratory Medicine - [facility] [address] [place], [place] [id number] Outr Resulting Lab, Provider Social History Tobacco [...] Lyme Ab Negative Negative 01/22/2023 10:50 EST [facility] Blood VENOUS BLOOD / Unknown 01/21/2023 10:44 EST 01/21/2023 22:08 EST Provider Outr Resulting Lab IMMUNOLOGY A ND SEROLOGY ORDERABLES [facility] [address] [place] [address] documented in this encounter Visit Diagnoses Not on filedocumented in this encounter Care Teams Residential Appliance Repair Technician Relationship Specialty Start Date End Date Edie Ellis MD [address] [place] [id number] PCP - General 03/21/19 documented as of this encounter
--- OUTSIDE RECORDS SUMMARY | 2024-08-15 17:02 | XMS_ITS | Encounter Summary ---
Author Organization [facility] Address [address] [place] [address] Care Team Providers Care Dry Cleaner Name Role Phone Edie Ellis MD Primary Care Provider [phone] Encounter Details Date Type Department Care Team ([facility] st Contact Info) Description 08/08/2021 Lab Requisition [facility] Pathology & Laboratory Medicine - [facility] [address] [place], [place] [id number] Outr Resulting Lab, Provider Social History Tobacco [...] Lyme Ab Negative Negative 08/09/2021 10:37 EDT [facility] Blood VENOUS BLOOD / Unknown 08/07/2021 16:48 EDT 08/08/2021 16:06 EDT Provider Outr Resulting Lab IMMUNOLOGY A ND SEROLOGY ORDERABLES [facility] [address] [place] [address] documented in this encounter Visit Diagnoses Not on filedocumented in this encounter Care Teams Dry Cleaner Relationship Specialty Start Date End Date Edie Ellis MD [address] [place] [phone] PCP - General 03/21/19 documented as of this encounter
--- OUTSIDE RECORDS SUMMARY | 2024-08-15 17:02 | XMS_ITS | Clinical Summary ---
Author Organization [facility] Address [address] [place] [address] Care Team Providers Care Group Art Supervisor Name Role Phone Edie Ellis MD Primary Care Provider [phone] Social History Tobacco Use Types Packs/Day Years [...] COVID-19 Vaccine ( season) 2023 Care Teams Group Art Supervisor Relationship Specialty Start Date End Date Edie Ellis MD [address] [place] [phone] PCP - General 03/21/19
--- NOTE | 2024-08-15 18:11 | W.PC.ACHO ---
Registration Status: Primary Language: Preferred Language: ED Information & Data Chief Complaint Seizure 08/15/24 14:48 Triage Note multiple seizures on her way 08/15/24 11:47 to pharmacy. longest seizure 2 mins witnessed. BGL 90. 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) Chronic migraine (03/07/15) Medication overuse headache (03/07/15) Migraine headache with aura (03/07/15) Migraine headache without aura (03/07/15) control (01/25/14) Dehydration Suicidal ideation Change in mental status Tachycardia Splenomegaly Lactose intolerance Hyperlipidemia Depression Anxiety Chronic pain syndrome CAD (coronary artery disease) Morbid obesity Diabetes Polycystic ovaries (Last Reviewed 08/15/24 @ 17:02 by Diane Blas APRN) S/P hysterectomy History of arthroscopy of left shoulder Hx of cardiac catheterization History of endometrial ablation History of section Previous back surgery Most Recent Vital Signs Temperature 36.9 C 08/15/24 17:18 Pulse 63 08/15/24 17:18 Pulse Rhythm Regular 08/15/24 17:18 Pulse 78 08/15/24 16:31 Respiratory Rate 15 08/15/24 17:18 Respiratory Effort Normal 08/15/24 17:18 Respiratory Depth Normal 08/15/24 17:18 Respiratory Pattern Normal 08/15/24 17:18 Blood Pressure 102/79 08/15/24 17:18 Blood Pressure Mean 86 08/15/24 16:31 Pulse Oximetry 100 08/15/24 17:18 Oxygen Delivery Method Room Air 08/15/24 17:18 Oxygen Flow Rate 0 08/15/24 17:18 Pain Level 5 08/15/24 17:18 Allergies Penicillins Allergy (Severe, Verified 08/05/24 18:29) throat closes Sulfa (Sulfonamide Antibiotics) Allergy (Mild, Verified 08/05/24 18:29) Hives lactose Adverse Reaction (Verified 08/05/24 18:29) Diarrhea nausea, diarrhea IV IV Catheter Type [Right Diffusics Antecubital] Diet Orders Category Date Time Status Diabetes Consistent CHO [DIET] Nutrition 08/15/24 Dinner Active Diagnostics 08/15/24 08/15/24 08/15/24 Range/Units 16:12 16:05 13:30 WBC (4.4-10.8) 10^3/uL RBC (3.93-5.22) 10^6/uL Hgb (11.2-15.7) g/dL Hct (36.0-46.0) % MCV (80-95) fL MCH (27.0-33.0) pg MCHC (32.0-36.0) % RDW (11.7-14.6) % Plt Count (130-400) 10^3/uL MPV (8.0-11.0) fL Immature Gran % % Neutrophils % % Lymphocytes % % Monocytes % % Eosinophils % % Basophils % % Nucleated RBC % (0.0-0.3) % Absolute Neutrophils (1.2-6.7) 10^3/uL Absolute Lymphocytes (1.2-3.4) 10^3/uL Absolute Monocytes (0.1-0.8) 10^3/uL Absolute Eosinophils (0.0-0.7) 10^3/uL Absolute Basophils (0.0-0.2) 10^3/uL Sodium (136-145) mmol/L Potassium (3.5-5.1) mmol/L Chloride (98-107) mmol/L Carbon Dioxide (21.0-32.0) mmol/L Anion Gap (3-11) mmol/L BUN (7-18) mg/dL Creatinine (0.55-1.02) mg/dL Est GFR (CKD-EPI 2020) (mL/min/1.73m2) Glucose (74-106) mg/dL Calcium (8.5-10.1) mg/dL Magnesium (1.8-2.4) mg/dL Total Bilirubin (0.2-1.0) mg/dL AST (15-37) U/L ALT (14-59) U/L Alkaline Phosphatase (46-116) U/L Total Protein (6.4-8.2) g/dL Albumin (3.4-5.0) g/dL TSH (0.36-3.74) uIU/mL Urine Opiates Screen Negative (Negative) Urine Methadone Screen Negative (Negative) Ur Barbiturates Screen Negative (Negative) Lamotrigine Pending Ur Tricyclics Screen Negative (Negative) Levetiracetam Pending Ur Amphetamines Screen Negative (Negative) U Benzodiazepines Scrn Positive A (Negative) Urine Cocaine Screen Negative (Negative) Ur THC Screen Negative (Negative) 08/15/24 Range/Units 12:00 WBC 7.69 (4.4-10.8) 10^3/uL RBC 4.82 (3.93-5.22) 10^6/uL Hgb 14.9 (11.2-15.7) g/dL Hct 44.7 (36.0-46.0) % MCV 93 (80-95) fL MCH 30.9 (27.0-33.0) pg MCHC 33.3 (32.0-36.0) % RDW 11.9 (11.7-14.6) % Plt Count 193 (130-400) 10^3/uL MPV 10.2 (8.0-11.0) fL Immature Gran % 0.1 % Neutrophils % 58.1 % Lymphocytes % 33.4 % Monocytes % 5.3 % Eosinophils % 2.3 % Basophils % 0.8 % Nucleated RBC % 0.0 (0.0-0.3) % Absolute Neutrophils 4.46 (1.2-6.7) 10^3/uL Absolute Lymphocytes 2.57 (1.2-3.4) 10^3/uL Absolute Monocytes 0.41 (0.1-0.8) 10^3/uL Absolute Eosinophils 0.18 (0.0-0.7) 10^3/uL Absolute Basophils 0.06 (0.0-0.2) 10^3/uL Sodium 139 (136-145) mmol/L Potassium 4.3 (3.5-5.1) mmol/L Chloride 103 (98-107) mmol/L Carbon Dioxide 29.6 (21.0-32.0) mmol/L Anion Gap 6.4 (3-11) mmol/L BUN 21 H (7-18) mg/dL Creatinine 0.8 (0.55-1.02) mg/dL Est GFR (CKD-EPI 2020) 90.27 (mL/min/1.73m2) Glucose 79 (74-106) mg/dL Calcium 9.2 (8.5-10.1) mg/dL Magnesium 1.8 (1.8-2.4) mg/dL Total Bilirubin 0.44 (0.2-1.0) mg/dL AST 27 (15-37) U/L ALT 29 (14-59) U/L Alkaline Phosphatase 51 (46-116) U/L Total Protein 6.8 (6.4-8.2) g/dL Albumin 3.5 (3.4-5.0) g/dL TSH 0.62 (0.36-3.74) uIU/mL Urine Opiates Screen (Negative) Urine Methadone Screen (Negative) Ur Barbiturates Screen (Negative) Lamotrigine Ur Tricyclics Screen (Negative) Levetiracetam Ur Amphetamines Screen (Negative) U Benzodiazepines Scrn (Negative) Urine Cocaine Screen (Negative) Ur THC Screen (Negative) Intake and Output - 24 Hour Total 08/15/24 11:41 thru 08/15/24 17:42 Intake Total 110 Balance 110 Weight 81.193 kg Intake: IV 110 Other: Urine Appearance Clear Falls Risk Assessment History of Falls No History 08/15/24 17:18 Contributing Factors Unstable,Medications 08/15/24 17:18 Ambulatory Aids Independent 08/15/24 17:18 Tubes/Lines W/no contributing factors 08/15/24 17:18 Gait Evaluation No gait disturbance 08/15/24 17:18 Cognition No cognitive impairment 08/15/24 17:18 Fall Total Score 16 08/15/24 17:18 Level of Risk Standard/Low Risk 08/15/24 17:18 Problems (Last Reviewed 08/15/24 @ 17:02 by Diane Blas APRN) Seizure (Acute) Type 2 diabetes mellitus (Chronic) v v v v v v v v v Sending and/or Receiving Nurses: Please use comment section below to note any information pertinent to the patient hand-off not included above. Information / Comments: pt arrives to 228 via wheelchair Report received from: martha Armstrongedic
[2024-08-15] MEDS: clonazePAM 1 MG TAB PO (18:53)
[2024-08-15] MEDS: Sacubitril/Valsartan 49 mg/51 mg TAB 2 EACH PO (19:49)
[2024-08-15] MEDS: lamoTRIgine 100 MG TAB 200 MG PO (19:49)
[2024-08-15] MEDS: Rosuvastatin 10 MG TAB PO (19:50)
[2024-08-15] MEDS: Pregabalin 100 MG CAP PO (19:50)
[2024-08-15] MEDS: Magnesium Oxide 400 MG TAB PO (19:50)
[2024-08-15] MEDS: HYDROmorphone 4 MG TAB PO (19:51)
[2024-08-15] MEDS: Normal Saline Flush 10 ML SYR IVP (20:15)
[2024-08-15] MEDS: SUMAtriptan 25 MG TAB 50 MG PO (23:26)
[2024-08-16 03:08] VITALS: BP 94/71; PULSE 82; RESP 17; TEMP 36; O2SAT 96
[2024-08-16] MEDS: Levothyroxine 50 MCG TAB PO (06:38)
[2024-08-16 06:58] LABS: Abs Immature Grans 0.01 10^3/uL (0.0-0.06); Absolute Basophil Count 0.06 10^3/uL (0.0-0.2); Absolute Eosinophil Count 0.23 10^3/uL (0.0-0.7); Absolute Lymphocyte Count 2.92 10^3/uL (1.2-3.4); Absolute Neutrophil Count 3.68 10^3/uL (1.2-6.7); Basophils % 0.8 %; Eosinophils % 3.2 %; HCT 44.1 % (36.0-46.0); HGB 14.8 g/dL (11.2-15.7); Immature Grans % 0.1 %; MCH 30.7 pg (27.0-33.0); MCHC 33.6 % (32.0-36.0); MCV 92 fL (80-95); MPV 10.2 fL (8.0-11.0); Monocytes % 5.5 %; Neutrophils % 50.4 %; Platelet Count 191 10^3/uL (130-400); RBC 4.82 10^6/uL (3.93-5.22); RDW 12.2 % (11.7-14.6); RDW-SD 40.6 fL
[2024-08-16 07:16] LABS: ALT 24 U/L (14-59); AST 15 U/L (15-37); Alkaline Phosphatase 54 U/L (46-116); Anion Gap 6.6 mmol/L (3-11); BUN 16 mg/dL (7-18); CO2 29.4 mmol/L (21.0-32.0); CREATININE 0.7 mg/dL (0.55-1.02); Calcium 9.1 mg/dL (8.5-10.1); Chloride 103 mmol/L (98-107); Estimated GFR 105.95 (mL/min/1.73m2); Glucose 88 mg/dL (74-106); Sodium 139 mmol/L (136-145); Total Protein 6.3 g/dL (6.4-8.2)
[2024-08-16 08:24] VITALS: BP 109/73; PULSE 75; RESP 18; TEMP 36.2; O2SAT 99
[2024-08-16] MEDS: Omeprazole 20 MG CAPCR PO (08:30)
[2024-08-16] MEDS: HYDROmorphone 4 MG TAB PO ×2 (08:30→21:22)
[2024-08-16] MEDS: Pregabalin 100 MG CAP PO ×3 (08:30→21:21)
[2024-08-16] MEDS: Metoprolol CR 100 MG TABCR PO (08:30)
[2024-08-16] MEDS: Estradiol 1 MG TAB PO (08:31)
[2024-08-16] MEDS: buPROPion-XL 150 MG TABCR 450 MG PO (08:31)
[2024-08-16] MEDS: PARoxetine 20 MG TAB 40 MG PO (08:31)
[2024-08-16] MEDS: levETIRAcetam 500 MG TAB 750 MG PO ×2 (08:32→21:21)
[2024-08-16] MEDS: lamoTRIgine 25 MG TAB 50 MG PO (08:32)
[2024-08-16] MEDS: Mirabegron 25 MG TABCR PO (08:33)
[2024-08-16] MEDS: Aspirin E.C. 81 MG TABEC PO (08:33)
[2024-08-16] MEDS: Cholecalciferol (Vitamin D3) 1,000 UNIT TAB 2000 UNITS PO (08:33)
[2024-08-16] MEDS: Sacubitril/Valsartan 49 mg/51 mg TAB 2 EACH PO ×2 (08:33→21:24)
[2024-08-16] MEDS: Cyanocobalamin 500 MCG TAB 1000 MCG PO (08:33)
[2024-08-16] MEDS: Loratidine 10 MG TAB PO (08:35)
[2024-08-16] MEDS: clonazePAM 1 MG TAB PO (08:53)
--- NOTE | 2024-08-16 10:43 | PGE_ITS ---
Date of Service Date of service: 08/16/24 Time of Service: 10:43 Assessment and Plan Assessment and plan (1) Seizure: Status: Acute Assessment and plan: History of sezures, last in 06/2024 Tele-neurology consult with Dr. Watkins from [facility] ? Load with a total of 2000 mg of IV Keppra total on day one- completed ? Increase Lamictal by 50 mg AM every week until maximum dose of 200 mg for the morning has been reach- then patient would be on 200mg in AM and 200 mg at HS - With max dose of lamictal - Neurologist or OPT provider should discontinue Keppra: patient reported tiredness with Keppra- not conducive of compliance -EEG completed merlin pending - MRI w and w/o -unavailable d/t implemented defribrillator -F/u with tele-neuro with recommendation - No driving for 6 months -recently increased dose of Wellbutrin to 450mg daily might be promoting seizures Already on Keppra at home but most likely non-compliance issues determined s/p discussion with neurologist: patient reported Keppra causing tiredness Will continue the dosing of Keppra 750 mg PO Q12 h as per neurology recommendations Ordered Keppra and Lamictal levels are still pending On opioids at home chronically for back pain- will continue inpatient d/t risk of seizures with opioids -Might need reviewing with opt pain team or benefit from pain clinic Still reporting aura this AM, migraine but no further seizures. This is most likely a migraine with aura and not a pre-ictal aura Tele-neurology f/u on 08/16/24: -Recommendation for OPT MRI: Patient was scheduled for [employer]UEL CE[employer] SYSTEM[employer] ENGINE[employer] - will try to get an earlier date -No EEG read available at the time of the f/u -Confirmed that the aura is most likely linked to the migraine rather than the seizures, received sumatriptan but will bring her home triptan Rx -Ongoing plan with increased in lamictal to maximum dosing and de-escalation of Keppra with neurology as discussed in initial consult (2) Type 2 diabetes mellitus: Status: Chronic Assessment and plan: A1C 5.6 in 01/2024 Gluc AC and HS Continue home medicine regimen, [facility] Qualifiers: Diabetes mellitus complication status: without complication 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 Clemente Subjective Subjective Patient reports: no new complaints, still having pain, tolerating liquids well, tolerating a regular diet, voiding w/o difficulty and other (Still having c/o headache with visual changed); denies diarrhea, nausea, vomiting, shortness of breath or fever Exam Narrative Exam Narrative: Constitutional The patient follow directions, decreased ataxia noticed still - feeling off , move all 4 extremities equally The patient is without acute distress HENMT: Facial structures with normal appearance Eyes: Well aligned, intact ROM, no nystagmus Neck: Normal ROM, no meningeal signs Neuro:alert and oriented to self, person, place and situation. No neurological focal deficit, PERRLA on ambient light Resp: Speaks in full sentences, unlabored breathing, clear lung bilaterally Cardio: regular rhythm, S1, S2, no murmur, positive radial and pedal pulses GI: Abdomen is not distended, soft and non tender, bowel sounds are present Integumentary: Bilateral knee abrasion occurring prior to arrival?healing Extremities: strength 4/5 to bilateral lower and upper extremities Psych: RASS 0, congruent mood and normal affect. Objective Last Vital Signs Temp 36.2 C L 08/16/24 08:24 Pulse 75 08/16/24 08:24 Resp 18 08/16/24 08:24 BP 109/73 08/16/24 08:24 Pulse Ox 99 08/16/24 08:24 Laboratory Results - last 24 hr 08/15/24 08/15/24 08/16/24 12:00 13:30 06:12 WBC 7.69 7.30 RBC 4.82 4.82 Hgb 14.9 14.8 Hct 44.7 44.1 MCV 93 92 MCH 30.9 30.7 MCHC 33.3 33.6 RDW 11.9 12.2 Plt Count 193 191 MPV 10.2 10.2 Immature Gran % 0.1 0.1 Neutrophils % 58.1 50.4 Lymphocytes % 33.4 40.0 Monocytes % 5.3 5.5 Eosinophils % 2.3 3.2 Basophils % 0.8 0.8 Nucleated RBC % 0.0 0.0 Absolute Neutrophils 4.46 3.68 Absolute Lymphocytes 2.57 2.92 Absolute Monocytes 0.41 0.40 Absolute Eosinophils 0.18 0.23 Absolute Basophils 0.06 0.06 Sodium 139 139 Potassium 4.3 4.0 Chloride 103 103 Carbon Dioxide 29.6 29.4 Anion Gap 6.4 6.6 BUN 21 H 16 Creatinine 0.8 0.7 Est GFR (CKD-EPI 2020) 90.27 105.95 Glucose 79 88 Calcium 9.2 9.1 Magnesium 1.8 Total Bilirubin 0.44 0.40 AST 27 15 ALT 29 24 Alkaline Phosphatase 51 54 Total Protein 6.8 6.3 L Albumin 3.5 3.0 L TSH 0.62 Urine Opiates Screen Negative Urine Methadone Screen Negative Ur Barbiturates Screen Negative Ur Tricyclics Screen Negative Ur Amphetamines Screen Negative U Benzodiazepines Scrn Positive A Urine Cocaine Screen Negative Ur THC Screen Negative Time Spent with Patient Time Spent with Patient: >50 minutes Time was spent: preparing to see the patient(eg.review tests), obtaining and/or reviewing separately otained hiistory, ordering medications,tests, procedures, referring, communicating with other health lawn care worker, indepentently interpreting results, counseling the patient and care coordination
[2024-08-16] MEDS: SUMAtriptan 25 MG TAB 50 MG PO (13:12)
[2024-08-16] MEDS: Normal Saline Flush 10 ML SYR IVP ×2 (13:17→21:21)
--- NOTE | 2024-08-16 13:41 | INITIAL_ITS ---
Date of service: 08/16/24 Time of Service: 13:41 Care Management Initial Assmt Initial Assessment Reason for Hospitalization: Seizure Functional Status/Living Situation Patient Presentation: Jammie is sitting up in her chair, reading a book her retrieved from the [facility] Library, she reports starting the novel last night and is a third of the way through already. Jammie did not identify any concerns and reported being content with the care provided. Town of Residence: [facility] Resides with: Spouse (Yoni, and daughter) Significant Other/Family: Local Natural Supports: Daughters and significant other. Employment Status: Disabled Instrumental Activities of Daily Living (ADLs): Independent Activities/Hobbies/SocialSupport: Enjoys reading. Medications Medication Management: Issues/Barriers (Per MD, consulted neurologist is questioning compliance d/t possible skipped doses of Keppra) with Other Advance Directives Advance Directives: Do you have an Advance Directive: N 08/28/20 12:20 AD On File at [facility]: N 08/28/20 12:20 Date Asked 08/15/24 08/15/24 12:05 AD Date Reviewed COLST On File at [facility] No 08/12/23 18:18 COLST Date Scanned Code Status Resuscitation Status Full Code Insurance Coverage/Financial Issues Insurance: Medicare, Medicaid Care Team Visit Care Team Role Provider Type Edie Ellis MD Primary Care Provider [facility] STAFF PHYSICIAN Cisco French MD Emergency Provider [facility] STAFF PHYSICIAN Nicolas Clemente MD Admit Provider [facility] STAFF PHYSICIAN Attending Provider Other: plastic duplicator, Chronic pain management Discharge Potential Discharge Needs: Consult (Tele-Neuro), Imaging/labs (Head CT, negative per MD. ), PCP F/U Appt and Other ([facility] [place] follow up initiated in the community prior to admission. ) Anticipated Barriers to Discharge: Medical Status Patient/Family Education Needs: Review discharge instructions, discuss Ask Me Three Transportation: Private vehicle Plan: Anticipate Jammie will return home when ready per MD, she will follow up with community providers and transport via private vehicle with family, CM following. PFSH All Active Problems (Updated 08/16/24 @ 13:43 by Diane Blas APRN) Knee abrasion (Acute) Contraindication to deep vein thrombosis (DVT) prophylaxis (Acute) Seizure (Acute) Intentional benzodiazepine overdose (Acute) Patellofemoral arthritis of left knee (Acute) Pulmonary hypertension (Chronic) Acute respiratory failure with hypoxia (Acute) Pulmonary edema (Acute) Acute respiratory distress (Acute) COVID-19 (Acute) Bilateral carpal tunnel syndrome (Acute) S/P R ECTR: 05/13/2022 Amplified musculoskeletal pain (Acute) Tendonitis of long head of biceps brachii of right shoulder (Acute) Bursitis of right shoulder (Acute) Traumatic tear of right rotator cuff (Acute) Calcific tendinitis of right shoulder (Acute) 40mg depo-medrol injection: 02/11/2022 Lateral epicondylitis of right elbow (Acute) 40mg depo-medrol injection: 02/11/2022 Hematest positive stools (Acute) Cardiomyopathy (Chronic) last echocardiogram 01/27/2019, LVEF 50-55%, no regional wall motion abnormalities, mild LVH, mild MR; normal RV size and function Bipolar disorder (Chronic) 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 (Acute 01/25/14) Atypical chest pain (Acute) Type 2 diabetes mellitus (Chronic) Palpitations (Acute) Spell of altered consciousness (Acute) Elevated brain natriuretic peptide (BNP) level (Acute) Chest pain (Acute) Screening for colon cancer (Acute) Tobacco use (Acute) Fecal occult blood test positive (Acute) Medical History Myalgia Urinary incontinence Fatigue Shortness of breath Dizziness, nonspecific Orthostasis Elbow fracture, right Unresponsive episode Hyperthyroidism Carpal tunnel syndrome, left Impingement syndrome of left shoulder (~03/2019) Left rotator cuff tear (~03/2019) Tendinitis of long head of biceps brachii of left shoulder (~03/2019) Bursitis of left shoulder (~03/2019) Cervical radiculopathy bilateral Acute kidney injury DVT prophylaxis Discharge planning issues Dyspnea 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) Chronic migraine (03/07/15) Medication overuse headache (03/07/15) Migraine headache with aura (03/07/15) Migraine headache without aura (03/07/15) control (01/25/14) Dehydration Suicidal ideation Change in mental status Tachycardia Splenomegaly Lactose intolerance Hyperlipidemia Depression Anxiety Chronic pain syndrome CAD (coronary artery disease) mild non-obstructive disease per cardiac cath [place] [facility] [place]/07/[place], more recent repeat cath unchanged but with pulmonary HTN Morbid obesity Diabetes Polycystic ovaries Surgical History S/P hysterectomy History of arthroscopy of left shoulder Hx of cardiac catheterization 08/2021-no stent placed History of endometrial ablation History of section x2 Previous back surgery Social History Smoking/Tobacco Use Status: Former Tobacco Use Quit status: quit date established Smoking risk assessment performed?: Yes Alcohol Intake: never Drug use: Never Substance use type: does not use Housing: apartment Number of Children: 3 Current gender identity: female What is your relationship status?: Panel score (0-1 are the most socially isolated patients): 0 What type of physical activity do you participate in: none Do you feel safe at home: Yes Do you feel safe in your relationship?: Yes Female Reproductive History Menstrual control method: permanent sterilization SDOH(Care Management) Screening Will the Patient Participate in the Screening?: Yes Do you worry about having a steady place to live?: no Problems where you live: no known problems In the past 12 months, have you had to go without electric, gas, oil or water in your home?: no Have you or anyone in your house had to go without enough food to eat?: no Has lack of transportation kept you from medical appointments or from doing things needed for daily living?: no Has anyone in your support network made you feel unsafe for any reason?: no
[2024-08-16] MEDS: Naproxen 500 MG TAB PO ×2 (14:08→21:32)
--- NOTE | 2024-08-16 14:53 | PT.INIE ---
PT Notes Visit Reasons: Seizure Inpatient Physical Therapy Evaluation Date: 08-16-2024 Referring Doctor: Diane Blas PT Orders: PT CONSULT: Seizures, fall risk safety consult for discharge Precautions: Seizures, fall risk, IV Patient Profile/Admitting Diagnosis: Patient is a 49-year-old female with a past medical history of seizure disorder on Lamictal and Keppra, pulmonary hypertension, past intentional benzodiazepine overdose, CAD, diabetes presented to the ED at [facility] for evaluation of seizures. Patient reportedly having multiple witnessed generalized seizures lasting longer than 2-minute this morning; EMS witnessed 1 seizure administer midazolam 10 mg the patient. On presentation to the ED patient was altered and fatigue but no focal deficit as per ED provider's assessment. Patient is also still reporting mild persistent right frontal headache starting prior to seizures. Blood work in the ED was asked not significant for any abnormality. The head CT was negative for any acute intracranial process. The patient received Keppra 1 g IV in the ED; a level was sent. Teleneuro consultation was initiated and pending. The hospitalist was consulted and the patient was admitted for evaluation and management of seizures. When met, the patient was alert, vague about the date and slow to follow commands. The patient reported initial aura prior to seizure including change in vision such as sparkles, fainting sensation, a feeling of nystagmus and dissociation. The patient also reported urinary incontinence at the time of the seizures but no fecal incontinence. Patient denied any other pain besides the headache. Patient denied nausea vomiting and dysuria. PMHX: Seizure (Acute) Intentional benzodiazepine overdose (Acute) Patellofemoral arthritis of left knee (Acute) Pulmonary hypertension (Chronic) Acute respiratory failure with hypoxia (Acute) Pulmonary edema (Acute) Acute respiratory distress (Acute) COVID-19 (Acute) Bilateral carpal tunnel syndrome (Acute) S/P R ECTR: 05/13/2022mplified musculoskeletal pain (Acute) Tendonitis of long head of biceps brachii of right shoulder (Acute) Bursitis of right shoulder (Acute) Traumatic tear of right rotator cuff (Acute) Calcific tendinitis of right shoulder (Acute) 40mg depo-medrol injection: 02/11/2022Lateral epicondylitis of right elbow (Acute) 40mg depo-medrol injection: 02/11/2022Hematest positive stools (Acute) Cardiomyopathy (Chronic) last echocardiogram 01/27/2019, LVEF 50-55%, no regional wall motion abnormalities, mild LVH, mild MR; normal RV size and functionBipolar disorder (Chronic) 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 (Acute 01/25/14) Atypical chest pain (Acute) Type 2 diabetes mellitus (Chronic) Palpitations (Acute) Spell of altered consciousness (Acute) Elevated brain natriuretic peptide (BNP) level (Acute) Chest pain (Acute) Screening for colon cancer (Acute) Tobacco use (Acute) Fecal occult blood test positive (Acute) Medical History Myalgia Urinary incontinence Fatigue Shortness of breath Dizziness, nonspecific Orthostasis Elbow fracture, right Unresponsive episode Hyperthyroidism Carpal tunnel syndrome, left Impingement syndrome of left shoulder (~03/2019) Left rotator cuff tear (~03/2019) Tendinitis of long head of biceps brachii of left shoulder (~03/2019) Bursitis of left shoulder (~03/2019) Cervical radiculopathy bilateralAcute kidney injury DVT prophylaxis Discharge planning issues Dyspnea 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) Chronic migraine (03/07/15) Medication overuse headache (03/07/15) Migraine headache with aura (03/07/15) Migraine headache without aura (03/07/15) control (01/25/14) Dehydration Suicidal ideation Change in mental status Tachycardia Splenomegaly Lactose intolerance Hyperlipidemia Depression Anxiety Chronic pain syndrome CAD (coronary artery disease) mild non-obstructive disease per cardiac cath report from [facility] 09/07/2013, more recent repeat cath unchanged but with pulmonary HTNMorbid obesity Diabetes Polycystic ovaries Surgical History S/P hysterectomy History of arthroscopy of left shoulder Hx of cardiac catheterization 08/2021-no stent placedHistory of endometrial ablation History of section [id number] back surgery Social History/Home Situation: Patient resides with and 14-year-old daughter in a two-story apartment with 14 steps to enter with 2 rails and 14 steps with 1 rail on the right to her bedroom and only bathroom. She reports she frequently uses a front wheel walker for ambulation due to chronic back pain. She reports she does not work and is on disability. She is reports she spends most of her time on the second floor although did state she does a lot of walking Equipment Owned/DME: [facility] Subjective: Patient reports dull headache and continues with aura like symptoms including flashing, orbs and black floating objects. She reported her tongue feeling strange as well as legs feeling light. Objective: [] General Observation: Patient seated in chair reading a book when approached by PT. Patient with intermittent tongue rolling throughout conversation. Patient with intermittent delayed response to some questions but agreeable to participate in functional assessment. Mental Status: Alert and oriented x 3 Pain: 2/10 headache Vital Signs: 101/72 ROM: Right Upper Extremity: Within normal limits Left Upper Extremity: Within normal limits Right Lower Extremity: Within normal limits Left Lower Extremity: Within normal limits Strength: Right Upper Extremity: Shoulder elbow wrist 3+/5; hand grasp diminished as compared to left Left Upper Extremity: Shoulder elbow wrist 4 -/5 Right Lower Extremity: Hip 3+/5, knee 3+/5, ankle 3/5 Left Lower Extremity: Hip 3+/5, knee 4 -/5 ankle 3+/5 Sensation: Diminished bilateral lower extremities to light touch Bed Mobility/Transfers: Supine to sit independent Sit to supine independent Sit to stand standby assist/supervision Stand to sit standby assist/supervision Bed to chair min assist with FWW Gait: Ambulate with FWW and wheelchair follow min assist 45 feet demonstrating bilateral decreased step length and height, decreased dillan, increased weightbearing through upper extremities at end of distance Stairs: Unable at this time Balance: [] Static Sitting: Normal Dynamic Sitting: Good Static Standing: Fair with bilateral upper extremity support Dynamic Standing: Fair minus with bilateral upper extremity support Special Tests: Mobility Limitations Standardized Measure [facility] AM-PAC 6 clicks Basic Mobility Inpatient Short Form: Raw Score: 17 CMS Score: 50.57% Informed Consent/Education: Patient instructed in purpose of PT consult and plan of care. Assessment: Patient is a 49year old female referred to physical therapy services with the diagnosis of seizures. Patient requires assist of 1 for all functional mobility at this time with increased risk for falls. patient presents with clinical signs and symptoms consistent with admitting diagnosis, that resulted in mobility limitations, gait instability, generalized weakness and overall ADL decline as demonstrated by the following impairment level findings: 1. Decreased strength to bilateral upper and lower extremity major muscle groups right greater than left 2. Impaired sitting and standing balance 3. Impaired activity tolerance Impairments are contributing to the following functional limitations: 1. AMPAC score of 50.57% disability 2. Decline in transfer skills 3. Difficulty with ambulation without assistive device and physical assistance 4. Increased risk for falls 5. Increased time to complete mobility and ADL performance 6. Difficulty with managing steps alone safely on Patient currently is at a high risk for falls due to medical status, decreased sensation, decreased strength and impaired balance reactions in standing. Patient is assessed as a Moderate 11786 complexity based on the following: History: 49-year-old female with past medical history as indicated above Examination: Demonstrates impairments in strength, balance, & functional mobility level with underlying impairments and functional limitations as demonstrated above Presentation: Evolving Decision Making: Moderate Goals: Goals X1 week 1. Sit-Stand independent 2. Stand-Sit independent 3. Bed-Chair supervised with FWW 4. Chair-Bed supervised with FWW 5. Gait: Ambulate with FWW greater than 50 feet with supervision 6. Stairs: Perform 12 steps with rail supervision to enter and exit home safely 7. Independent with home exercise program 8. Improve balance to allow for supervised functional mobility Plan of Care/Treatment Plan: 1-2x/day, 7 days/week x 1 week. Plan of care has been reviewed with the [facility] providing the service under Physical Therapy direction. Initiate Physical Therapy intervention for strengthening, bed mobility, transfers, gait, stairs, balance training, use of assistive device. DISCHARGE RECOMMENDATIONS: [] [] Home with no services [] [X] Home with services PT when medically appropriate for discharge [] Home with outpatient PT [] [] SNF for continued rehabilitation [] [] Jail Care [] [] SNF versus LTC based on ability to participate and progress [] TREATMENT CODE/TIME: 13452 x 20 minutes for 1 unit, 85457 x 10 minutes for 1 unit/1405?1435 Please sign an return this page within 30 days if you agree with the above POC. Thank you! Physician Signature Date [facility]
[2024-08-16 16:42] VITALS: BP 98/71; PULSE 72; RESP 16; TEMP 36.6; O2SAT 96
[2024-08-16] MEDS: Acetaminophen 500 MG TAB 1000 MG PO (16:52)
--- NOTE | 2024-08-16 17:13 | PDOC.EEG ---
Neurology EEG EEG: [facility] Department of Neurology INPATIENT EEG REPORT Date of Recordin08/16/24 Interpreting Physician: Dr. Nat Eason Reason for study: Jammie Gottlieb is a 49 year-old with a reported history of seizures, admitted after having multiple breakthrough seizures. Current Medications: Current Medications Acetaminophen (Acetaminophen 500 Mg Tab) 1,000 mg PO Q8H PRN PRN Last Admin: 08/16/24 16:52 Dose: 1,000 mg Albuterol Sulfate (Albuterol Hfa 8 Gm 60 Puff Inh) 2 puff IH QID PRN PRN Albuterol/Ipratropium (Albuterol/Ipratropium 3 Ml Upd Vial) 3 ml UPD Q6H PRN PRN Aspirin (Aspirin E.C. 81 Mg Tabec) 81 mg PO DAILY [facility] Last Admin: 08/16/24 08:33 Dose: 81 mg Bacitracin/Polymyxin B Sulfate (Bacitracin/Polymyxin 30 Gm Tube) 0 gm TP DAILY [facility] Last Admin: 08/16/24 16:07 Dose: 1 appful Bupropion HCl (Bupropion-Xl 150 Mg Tabcr) 450 mg PO DAILY [facility] Last Admin: 08/16/24 08:31 Dose: 450 mg Cholecalciferol (Cholecalciferol (Vitamin D3) 1,000 Unit Tab) 2,000 units PO DAILY [facility] Last Admin: 08/16/24 08:33 Dose: 2,000 units Clonazepam (Clonazepam 1 Mg Tab) 1 mg PO DAILY PRN PRN Last Admin: 08/16/24 08:53 Dose: 1 mg Cyanocobalamin (Cyanocobalamin 500 Mcg Tab) 1,000 mcg PO DAILY [facility] Last Admin: 08/16/24 08:33 Dose: 1,000 mcg Device (Inhaler, Assist Device) 1 each DIRECTED [facility] Docusate Sodium (Docusate Sodium 100 Mg Cap) 100 mg PO TID PRN PRN Estradiol (Estradiol 1 Mg Tab) 1 mg PO DAILY [facility] Last Admin: 08/16/24 08:31 Dose: 1 mg Estradiol (Estradiol 0.5 Mg Tab) 1.5 mg PO QPM [facility] Last Admin: 08/15/24 19:50 Dose: 1.5 mg Hydrocortisone (Hydrocortisone 2.5% Cr 30 Gm Tube) 0 gm TP QID [facility] Last Admin: 08/16/24 16:08 Dose: Not Given Hydromorphone HCl (Hydromorphone 4 Mg Tab) 4 mg PO BID [facility] Last Admin: 08/16/24 08:30 Dose: 4 mg IV Miscellaneous Supplies (Iv Access-Emergency Dept) 1 each IV DIRECTED [facility] Lamotrigine (Lamotrigine 100 Mg Tab) 200 mg PO HS [facility] Last Admin: 08/15/24 19:49 Dose: 200 mg Lamotrigine (Lamotrigine 25 Mg Tab) 50 mg PO DAILY [facility] Last Admin: 08/16/24 08:32 Dose: 50 mg Levetiracetam (Levetiracetam 500 Mg Tab) 750 mg PO BID [facility] Last Admin: 08/16/24 08:32 Dose: 750 mg Levothyroxine Sodium (Levothyroxine 50 Mcg Tab) 50 mcg PO DAILY@0600 [facility] Last Admin: 08/16/24 06:38 Dose: 50 mcg Loratadine (Loratidine 10 Mg Tab) 10 mg PO DAILY [facility] Last Admin: 08/16/24 08:35 Dose: 10 mg Magnesium Oxide (Magnesium Oxide 400 Mg Tab) 400 mg PO HS [facility] Last Admin: 08/15/24 19:50 Dose: 400 mg Melatonin (Melatonin 3 Mg Tab) 9 mg PO HS PRN PRN Metoprolol Succinate (Metoprolol Cr 100 Mg Tabcr) 100 mg PO DAILY [facility] Last Admin: 08/16/24 08:30 Dose: 100 mg Mirabegron (Mirabegron 25 Mg Tabcr) 25 mg PO DAILY [facility] Last Admin: 08/16/24 08:33 Dose: 25 mg Naproxen (Naproxen 500 Mg Tab) 500 mg PO BID PRN PRN Last Admin: 08/16/24 14:08 Dose: 500 mg Nicotine (Nicotine 21 Mg/24 Hr Patch) 21 mg TD DAILY PRN PRN Omeprazole (Omeprazole 20 Mg Capcr) 20 mg PO DAILY@0730 [facility] Last Admin: 08/16/24 08:30 Dose: 20 mg Paroxetine HCl (Paroxetine 20 Mg Tab) 40 mg PO DAILY [facility] Last Admin: 08/16/24 08:31 Dose: 40 mg Pt's Own Dapagliflozin Propanediol [Farxiga ] 5 Mg Tablet 1 each PO DAILY [facility] Last Admin: 08/16/24 11:09 Dose: Not Given Pt's Own Icosapent Ethyl [Vascepa] 1 Gram Capsule 2 each PO BID [facility] Last Admin: 08/16/24 11:09 Dose: Not Given Pt's Own Naratriptan (2.5 Mg Tablet) 1 each PO BID PRN PRN Pt's Own Riboflavin (Vitamin B2) [ Vitamin B-2] 50 Mg Tablet 4 each PO BID [facility] Last Admin: 08/16/24 11:10 Dose: Not Given Pt's Own Vortioxetine [ Trintellix] 20 Mg Tablet 1 each PO DAILY [facility] Last Admin: 08/16/24 11:10 Dose: Not Given Polyethylene Glycol (Polyethylene Glycol 3350 17 Gm Packet) 17 gm PO DAILY PRN PRN Pregabalin (Pregabalin 100 Mg Cap) 100 mg PO TID [facility] Last Admin: 08/16/24 14:54 Dose: 100 mg Prochlorperazine Maleate (Prochlorperazine 10 Mg Tab) 10 mg PO DAILY PRN PRN PRN Reason: Headache Rosuvastatin Calcium (Rosuvastatin 10 Mg Tab) 10 mg PO QPM [facility] Last Admin: 08/15/24 19:50 Dose: 10 mg Sacubitril/Valsartan (Sacubitril/Valsartan 49 Mg/51 Mg Tab) 2 each PO BID [facility] Last Admin: 08/16/24 08:33 Dose: 2 each Sodium Chloride (Normal Saline Flush 10 Ml Syr) 0 ml IVP PRN PRN Sodium Chloride (Normal Saline Flush 10 Ml Syr) 0 ml IVP BID [facility] Last Admin: 08/16/24 13:17 Dose: 10 ml Sodium Chloride (Normal Saline 10 Ml Vial) 0 ml IJ DIRECTED PRN METHODS: A 21 channel digitized electroencephalogram was performed in the [facility] Med/Surg Floor or ICU. The 10/20 international system of electrode placement was used and bipolar and referential electrode montages were recorded. In addition to EEG the patient was monitored for EKG and lateral/vertical eye movements. Activation procedures of photic stimulation and hyperventilation were performed if applicable. Video was used during activation procedures and during events where applicable. The duration of the recording was ~60 minutes. DESCRIPTION OF EEG: The patient was noted to be awake and drowsy during the recording. During maximal wakefulness a 9-Hz posterior background rhythm was present which was well-modulated, symmetrical, reactive to eye opening, and of moderate voltage. With eye opening the background activity changed to a low voltage mixture of alpha, beta, and occasional theta range frequencies. Faster frequencies were present in the bilateral anterior head regions. There was a normal anterior-posterior voltage gradient. During drowsiness, there was attenuation of the posterior dominant background rhythm and vertex waves. No stage II sleep was recorded. Activating Procedures: Photic stimulation was performed which produced a symmetrical posterior driving response at various flash frequencies. Hyperventilation was performed with moderate effort and produced no physiological slowing of the background. EKG: EKG revealed normal sinus rhythm. INTERPRETATION: This EEG is normal during the awake and sleep states as well as during photic stimulation and hyperventilation. PRIOR EEG: -EEG (08/29/20): normal during the awake and sleep states as well as during photic stimulation and hyperventilation. CLINICAL CORRELATION: No focal regions of cerebral dysfunction or epileptiform activity was present. Epilepsy remains a clinical diagnosis and a normal EEG does not rule out epilepsy. Clinical correlation is advised. Nat Eason MD Date of service: 08/16/24
[2024-08-16 20:01] VITALS: BP 104/65; PULSE 74; RESP 18; TEMP 36.2; O2SAT 96
[2024-08-16] MEDS: Prochlorperazine 10 MG TAB PO (21:21)
[2024-08-16] MEDS: Magnesium Oxide 400 MG TAB PO (21:23)
[2024-08-16] MEDS: Rosuvastatin 10 MG TAB PO (21:23)
[2024-08-16] MEDS: lamoTRIgine 100 MG TAB 200 MG PO (21:24)
[2024-08-16 22:58] VITALS: BP 100/73; PULSE 72; RESP 18; TEMP 36.4; O2SAT 94
[2024-08-17 03:24] VITALS: BP 96/66; PULSE 71; RESP 18; TEMP 36.4; O2SAT 94
[2024-08-17] MEDS: Levothyroxine 50 MCG TAB PO (06:25)
[2024-08-17 06:34] LABS: Abs Immature Grans 0.01 10^3/uL (0.0-0.06); Absolute Basophil Count 0.08 10^3/uL (0.0-0.2); Absolute Eosinophil Count 0.29 10^3/uL (0.0-0.7); Absolute Lymphocyte Count 3.81 10^3/uL (1.2-3.4); Absolute Monocyte Count 0.45 10^3/uL (0.1-0.8); Absolute Neutrophil Count 2.33 10^3/uL (1.2-6.7); Basophils % 1.1 %; Eosinophils % 4.2 %; HCT 43.6 % (36.0-46.0); HGB 14.3 g/dL (11.2-15.7); Immature Grans % 0.1 %; Lymphocytes % 54.7 %; MCH 30.8 pg (27.0-33.0); MCHC 32.8 % (32.0-36.0); MCV 94 fL (80-95); MPV 10.4 fL (8.0-11.0); Monocytes % 6.5 %; Neutrophils % 33.4 %; Platelet Count 197 10^3/uL (130-400); RBC 4.64 10^6/uL (3.93-5.22); RDW 12.1 % (11.7-14.6); RDW-SD 41.8 fL; WBC 6.97 10^3/uL (4.4-10.8)
[2024-08-17 06:45] LABS: Anion Gap 6.5 mmol/L (3-11); BUN 19 mg/dL (7-18); CO2 29.5 mmol/L (21.0-32.0); CREATININE 0.8 mg/dL (0.55-1.02); Chloride 101 mmol/L (98-107); Estimated GFR 90.27 (mL/min/1.73m2); Glucose 122 mg/dL (74-106); Magnesium 1.4 mg/dL (1.8-2.4); Potassium 3.9 mmol/L (3.5-5.1); Sodium 137 mmol/L (136-145)
[2024-08-17 07:28] VITALS: BP 93/56; PULSE 73; RESP 16; TEMP 37.2; O2SAT 94
[2024-08-17] MEDS: Sacubitril/Valsartan 49 mg/51 mg TAB 2 EACH PO (08:33)
[2024-08-17] MEDS: Mirabegron 25 MG TABCR PO (08:33)
[2024-08-17] MEDS: Estradiol 1 MG TAB PO (08:33)
[2024-08-17] MEDS: levETIRAcetam 500 MG TAB 750 MG PO (08:33)
[2024-08-17] MEDS: Metoprolol CR 100 MG TABCR PO (08:33)
[2024-08-17] MEDS: buPROPion-XL 150 MG TABCR 450 MG PO (08:34)
[2024-08-17] MEDS: HYDROmorphone 4 MG TAB PO (08:36)
[2024-08-17] MEDS: Loratidine 10 MG TAB PO (08:36)
[2024-08-17] MEDS: Pregabalin 100 MG CAP PO ×2 (08:36→14:57)
[2024-08-17] MEDS: Omeprazole 20 MG CAPCR PO (08:37)
[2024-08-17] MEDS: Cholecalciferol (Vitamin D3) 1,000 UNIT TAB 2000 UNITS PO (08:37)
[2024-08-17] MEDS: PARoxetine 20 MG TAB 40 MG PO (08:38)
[2024-08-17] MEDS: lamoTRIgine 25 MG TAB 50 MG PO (08:38)
[2024-08-17] MEDS: Cyanocobalamin 500 MCG TAB 1000 MCG PO (08:38)
[2024-08-17] MEDS: Aspirin E.C. 81 MG TABEC PO (08:38)
[2024-08-17 09:55] VITALS: O2SAT 94
[2024-08-17] MEDS: MAGNESIUM SULFATE 4 GM/100 ML BAG IVINF (10:41)
[2024-08-17] MEDS: Naproxen 500 MG TAB PO (11:01)
[2024-08-17] MEDS: Acetaminophen 500 MG TAB 1000 MG PO (11:01)
[2024-08-17 11:35] VITALS: BP 90/67; PULSE 73; RESP 20; TEMP 36.5; O2SAT 95
--- NOTE | 2024-08-17 12:20 | PT.INTREAT ---
PT Notes Visit Reasons: Seizure Inpatient Physical Therapy Treatment Note [facility] Date: 08-17-2024 PRECAUTIONS:seizure precautions, IV SUBJECTIVE: Pt reports she is feeling much better today than yesterday. she reports her legs no longer feel light and she no longer is having the visual auras she had yesterday. OBJECTIVE: ?Pt awake alert smiling sitting in the chair reading with no lights on in room with the blinds half drawn. Pt agreeable to participated. ? PAIN: denies pain VITALS: monitored by Nursing Therapeutic Activities ([id number]): Direct one-on-one instruction in dynamic activities to improve functional performance. ? BED MOBILITY/TRANSFERS? Rolling L/R: independent Supine-sit: Independent? Sit-supine: Independent? Sit-stand: Independent ? Stand-sit: Independent? Bed-Chair: Independent with and without FWW? Chair-bed: Independent with and without FWW Provided skilled cues and instruction on performance and technique throughout. [X] Provided instruction in gait pattern [X] Patient education regarding pacing and breathing techniques to maximize activity tolerance? Functional Ambulation: 100 feet x 2 with FWW Decreased step length bilateral lower extremity, impaired dissociation of hip and shoulders, with cue able to increase step length slightly.?supervision including turns and obstacle management. ? STAIRS: First session 2 x 6 inch and 3 x 4 inch step with rail CGA reciprocal pattern ? ASSESSMENT: Patient demonstrates significant improvement in stability and motor control as compared to initial evaluation. Patient with increased fluidity of motion during functional mobility with FWW. 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 PLAN: Continue PT for strengthening, functional mobility, stairs until medically appropriate for discharge TREATMENT CODE/TIME: 76111w 27 minutes for 2 units/1106?1138 DISCHARGE RECOMMENDATION: Home with PT
--- NOTE | 2024-08-17 12:54 | W.PM.DS.N ---
Date of service: 08/17/24 Time of Service: 11:00 DS: Diagnosis Discharge Diagnosis (1) Seizure: Status: Acute (2) Type 2 diabetes mellitus: Status: Chronic (3) Knee abrasion: Status: Acute (4) Depression: (5) Discharge planning issues: Discharge Plan Disposition Patient Disposition: Home W/Home Health Services Condition: Improving Discharge Details Reason For Visit: Seizure Admit Date/Time: 08/15/24 16:12 Admit Provider: Nicolas Clemente Attending Provider: Nicolas Clemente Primary Care Provider: Edie Ellis [place] [facility] Hospital Course: This 49 years old female patient with a past medical history of seizure disorder on Lamictal and Keppra, pulmonary hypertension, past intentional benzodiazepine overdose, CAD, diabetes presented to the ED at [facility] on 08/15/2024 for evaluation of seizures. Patient reportedly having multiple witnessed generalized seizures lasting longer than 2-minute this morning; EMS witnessed 1 seizure administer midazolam 10 mg the patient. On presentation to the ED patient was altered and fatigue but no focal deficit as per ED provider's assessment. Patient is also still reporting mild persistent right frontal headache starting prior to seizures. Blood work in the ED was asked not significant for any abnormality. The head CT was negative for any acute intracranial process. The patient received Keppra 1 g IV in the ED; a level was sent. Teleneuro consultation was initiated and pending. The hospitalist was consulted and the patient was admitted for evaluation and management of seizures. When met, the patient was alert, vague about the date and slow to follow commands. The patient reported initial aura with migraine prior to seizure with change in vision such as sparkles, fainting sensation, a feeling of nystagmus and dissociation. The patient also reported urinary incontinence at the time of the seizures but no fecal incontinence. Patient denied any other pain besides the headache. Patient denied, fever, sick contact, nausea vomiting and dysuria. Hospitalist was consulted and patient admitted to the medical surgical floor for evaluation and management of seizures. Tele-neurology consultation was completed with the following recommendations: Already on Keppra at home but most likely non-compliance issues determined s/p discussion with neurologist: patient reported Keppra causing tiredness. ? Load with a total of 2000 mg of IV Keppra total - Increased Keppra to 750mg twice daily ? Increase Lamictal by 50 mg AM every week until maximum dose of 200 mg for the morning has been reach- then patient would be on 200mg in AM and 200 mg at HS -Once lamotrigine maxed out at 200 mg orally twice a day, recommendation for neurology to Keppra off by lowering the dose of Keppra by 250 mg for each dose weekly until stop. -EEG completed and showed no focal region of cerebral dysfunction or epileptiform activity. The EEG was normal during the awake and asleep states as well as during photic stimulation and hyperventilation. - MRI w and w/o seizure protocol-unavailable at this facility d/t implemented defribrillator: To be completed outpatient -F/u with neurology - No driving for 6 months or until seen by neurologist. 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 During the stay the patient chronic conditions were treated as per home medicine regimen. The patient did not experience any further episode of seizures. The patient reported feeling back to normal. Education and on medication compliance and avoidance of triggers completed with patient. The patient will be discharged home today increased dose of Keppra and lack Lamictal as mentioned in the above recommendations. The patient will have to follow-up with neurology and with her primary care practitioner within 7 days of discharge. Physical therapy recommendations are for home health physical therapy; patient has been using a front wheel walker during sessions. Discussed with Dr. Hamlin Home Meds and New Rx's Prescriptions: New levetiracetam 500 mg Tablet 750 mg PO BID Qty: 90 0RF lamotrigine [Lamictal] 100 mg tablet 50 mg PO DAILY Qty: 4 0RF Rx Instructions: take 50 mg in AM for one week, see your provider for further supply of lamictal to follow the following plan: then 100 mg for one week, then 150mg for one week, then you will take 200 mg two times a day Keep taking your HS dose as ordered by neurology docusate sodium [Colace] 100 mg capsule 100 mg PO DAILY Qty: 30 0RF Continued clonazepam 1 mg tablet 1 mg PO BID PRN melatonin 10 mg tablet 10 mg PO HS PRN loratadine 10 mg capsule 10 mg PO DAILY Trintellix 20 mg tablet 20 mg PO DAILY Patient Comments: TAKE ONE TABLET BY MOUTH EVERY DAY mirabegron [Myrbetriq] 25 mg tablet extended release 24 hr 25 mg PO Q24H Patient Comments: TAKE ONE TABLET BY MOUTH EVERY DAY cholecalciferol (vitamin D3) 50 mcg (2,000 unit) capsule 50 mcg PO DAILY naratriptan 2.5 mg tablet 2.5 mg PO BID PRN polyethylene glycol 3350 17 gram/dose Powder 17 g PO DAILY PRN cyanocobalamin (vitamin B-12) 1,000 mcg tablet 1,000 mcg PO DAILY Patient Comments: TAKE ONE TABLET BY MOUTH EVERY DAY icosapent ethyl [Vascepa] 1 gram capsule 2 g PO BID Patient Comments: TAKE TWO CAPSULES BY MOUTH TWICE A DAY dapagliflozin propanediol [Farxiga] 5 mg tablet 5 mg PO DAILY Patient Comments: Take 1 tablet by mouth once a day Entresto 97-103 mg tablet 1 tab PO BID Patient Comments: TAKE ONE TABLET BY MOUTH TWICE A DAY pregabalin 100 mg capsule 100 mg PO TID Patient Comments: Take 1 capsule by mouth three times a day magnesium oxide 400 MG tablet 400 mg PO HS Qty: 0 0RF levothyroxine [Synthroid] 25 MCG tablet 50 mcg PO HS omeprazole 20 mg Capsule,Delayed Release(Dr/Ec) 20 mg PO DAILY prochlorperazine maleate 10 mg Tablet 10 mg PO DAILY PRN (Reason: Headache) albuterol sulfate [Ventolin HFA] 90 mcg/actuation Hfa Aerosol Inhaler 2 puff INHALATION QID PRN naloxone [Narcan] 4 mg/actuation Seaview,Non-Aerosol 1 spray INTRANASAL ONCE PRN Patient Comments: Never used. aspirin 81 mg tablet,delayed release (DR/EC) 81 mg PO DAILY Qty: 14 0RF Rx Instructions: Take 1 daily with a meal for 30 days estradiol 1 mg tablet See Rx Instructions .ROUTE .COMPLEX Patient Comments: TAKE 1 TABLET BY MOUTH EVERY MORNING THEN 2 TABLETS EVERY EVENING Rx Instructions: --> 1mg qAM and 1.5m,g qPM hydrocortisone 2.5 % cream 1 applic topical QID Qty: 30 6RF acetaminophen 500 mg capsule 1,000 mg PO Q8H PRN PRNQty: 30 0RF bupropion HCl 150 mg tablet extended release 24 hr 150 mg PO BID Patient Comments: TAKE ONE TABLET BY MOUTH TWICE A DAY WITH MEALS metoprolol succinate 100 mg tablet extended release 24 hr 100 mg PO DAILY Patient Comments: TAKE ONE TABLET BY MOUTH EVERY DAY lamotrigine 200 mg tablet 200 mg PO HS naproxen 500 mg tablet 500 mg PO BID bupropion HCl 300 mg tablet extended release 24 hr 300 mg PO DAILY Patient Comments: TAKE ONE TABLET BY MOUTH EVERY DAY. TAKE WITH 150MG DOSE TO EQUAL 450MG levothyroxine 50 mcg tablet 50 mcg PO DAILY Patient Comments: TAKE ONE TABLET BY MOUTH EVERY DAY rosuvastatin 10 mg tablet 10 mg PO HS Patient Comments: TAKE ONE TABLET BY MOUTH AT BEDTIME riboflavin (vitamin B2) [Vitamin B-2] 100 mg tablet 200 mg PO BID Patient Comments: TAKE TWO TABLETS BY MOUTH EVERY DAY TWO TIMES A DAY paroxetine HCl 40 mg tablet 40 mg PO DAILY Patient Comments: TAKE ONE TABLET BY MOUTH EVERY DAY hydromorphone 4 mg tablet 4 mg PO BID Patient Comments: TAKE ONE TABLET BY MOUTH TWICE A DAY FOR PAIN Trulicity 3 mg/0.5 mL pen injector 3 mg SUBCUT QWEEK Patient Comments: INJECT 3MG UNDER THE SKIN ONCE WEEKLY Discontinued levetiracetam 500 mg tablet 500 mg PO BID Patient Comments: TAKE ONE TABLET BY MOUTH TWICE A DAY Discharge Instructions Referrals: Edie Ellis MD [Primary Care Provider] - (F/u within 7 days with PCP please ) Nat Eason MD [ [facility] STAFF PHYSICIAN] - (F/u with neurology please ) Activity:: No driving Equipment/Supplies:: Walker Diet:: heart healthy diabetic Discharge Orders Other Ambulatory Orders: MR brain wo/w (ONCE) Timeframe: [id number] Location: [facility] Ordered By: Diane Blas DS: Summary Time Spent with Patient providing and/or coordinating discharge services: Greater than 30 minutes Status at Discharge Functional status at discharge: independent ambulation Overall status at discharge: patient is progressing back to baseline Mental Status: mental status grossly normal Speech and Movement: speech and movement normal Mood: congruent mood Affect: normal affect Quality:SDOH Health Related Social Needs: No Data to Display Exam Narrative Exam Narrative: Constitutional The patient follow directions,move all 4 extremities equally The patient is without acute distress HENMT: Facial structures with normal appearance Eyes: Well aligned, intact ROM Neuro:alert and oriented x4 . No neurological focal deficit Resp: Speaks in full sentences, clear lung bilaterally Cardio: regular rhythm, S1, S2, no murmur GI: Abdomen is not distended, soft and non tender, bowel sounds are present Integumentary: Bilateral knee abrasion occurring prior to arrival?healing Extremities: strength 5/5 to bilateral lower and upper extremities, delayed in following commands with lower extremities Psych: RASS 0, congruent mood and normal affect. Psych Mental Status: mental status grossly normal Speech and Movement: speech and movement normal Mood: congruent mood Affect: normal affect DS: Data Vitals/I&O Vitals and I&O: Vital Signs Temperature 36.5 C 08/17/24 11:35 Temperature Source Tympanic 08/17/24 11:35 Pulse 73 08/17/24 11:35 Pulse Rhythm Regular 08/15/24 17:18 Pulse 78 08/15/24 16:31 Respiratory Rate 20 08/17/24 11:35 Respiratory Effort Normal 08/15/24 17:18 Respiratory Depth Normal 08/15/24 17:18 Respiratory Pattern Normal 08/15/24 17:18 Blood Pressure 90/67 L 08/17/24 11:35 Blood Pressure Mean 86 08/15/24 16:31 Pulse Oximetry 95 08/17/24 11:35 Oxygen Delivery Method Room Air 08/17/24 11:35 Oxygen Flow Rate 0 08/17/24 11:35 Pain Level 2 08/17/24 12:01 Comment RN Notified 08/17/24 03:24 Intake & Output 08/16/24 08/17/24 08/17/24 23:59 11:59 23:59 Intake Total 440 / 560 Output Total 900 / 1200 600 / 600 Balance -460 / -640 -590 / -590 Intake: IV Oral 440 / 440 Output: Urine 900 / 1200 600 / 600 Other: Urine Color Yellow Yellow Urine Appearance Cloudy Clear Comment voided independently Voiding Methods Toilet Toilet Data Completed and Pending Labs on day of discharge: Labs from last 24 hours 08/17/24 06:06 WBC 6.97 RBC 4.64 Hgb 14.3 Hct 43.6 MCV 94 MCH 30.8 MCHC 32.8 RDW 12.1 Plt Count 197 MPV 10.4 Immature Gran % 0.1 Neutrophils % 33.4 Lymphocytes % 54.7 Monocytes % 6.5 Eosinophils % 4.2 Basophils % 1.1 Nucleated RBC % 0.0 Absolute Neutrophils 2.33 Absolute Lymphocytes 3.81 H Absolute Monocytes 0.45 Absolute Eosinophils 0.29 Absolute Basophils 0.08 Sodium 137 Potassium 3.9 Chloride 101 Carbon Dioxide 29.5 Anion Gap 6.5 BUN 19 H Creatinine 0.8 Est GFR (CKD-EPI 2020) 90.27 Glucose 122 H Calcium 9.0 Magnesium 1.4 L PFSH All Active Problems (Updated 08/16/24 @ 13:43 by Diane Blas APRN) Knee abrasion (Acute) Contraindication to deep vein thrombosis (DVT) prophylaxis (Acute) Seizure (Acute) Intentional benzodiazepine overdose (Acute) Patellofemoral arthritis of left knee (Acute) Pulmonary hypertension (Chronic) Acute respiratory failure with hypoxia (Acute) Pulmonary edema (Acute) Acute respiratory distress (Acute) COVID-19 (Acute) Bilateral carpal tunnel syndrome (Acute) S/P R ECTR: 05/13/2022 Amplified musculoskeletal pain (Acute) Tendonitis of long head of biceps brachii of right shoulder (Acute) Bursitis of right shoulder (Acute) Traumatic tear of right rotator cuff (Acute) Calcific tendinitis of right shoulder (Acute) 40mg depo-medrol injection: 02/11/2022 Lateral epicondylitis of right elbow (Acute) 40mg depo-medrol injection: 02/11/2022 Hematest positive stools (Acute) Cardiomyopathy (Chronic) last echocardiogram 01/27/2019, LVEF 50-55%, no regional wall motion abnormalities, mild LVH, mild MR; normal RV size and function Bipolar disorder (Chronic) 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 (Acute 01/25/14) Atypical chest pain (Acute) Type 2 diabetes mellitus (Chronic) Palpitations (Acute) Spell of altered consciousness (Acute) Elevated brain natriuretic peptide (BNP) level (Acute) Chest pain (Acute) Screening for colon cancer (Acute) Tobacco use (Acute) Fecal occult blood test positive (Acute) Medical History Myalgia Urinary incontinence Fatigue Shortness of breath Dizziness, nonspecific Orthostasis Elbow fracture, right Unresponsive episode Hyperthyroidism Carpal tunnel syndrome, left Impingement syndrome of left shoulder (~03/2019) Left rotator cuff tear (~03/2019) Tendinitis of long head of biceps brachii of left shoulder (~03/2019) Bursitis of left shoulder (~03/2019) Cervical radiculopathy bilateral Acute kidney injury DVT prophylaxis Discharge planning issues Dyspnea 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) Chronic migraine (03/07/15) Medication overuse headache (03/07/15) Migraine headache with aura (03/07/15) Migraine headache without aura (03/07/15) control (01/25/14) Dehydration Suicidal ideation Change in mental status Tachycardia Splenomegaly Lactose intolerance Hyperlipidemia Depression Anxiety Chronic pain syndrome CAD (coronary artery disease) mild non-obstructive disease per cardiac cath report from [facility] [place], more recent repeat cath unchanged but with pulmonary HTN Morbid obesity Diabetes Polycystic ovaries Surgical History S/P hysterectomy History of arthroscopy of left shoulder Hx of cardiac catheterization 08/2021-no stent placed History of endometrial ablation History of section x2 Previous back surgery Social History Smoking/Tobacco Use Status: Former Tobacco Use Quit status: quit date established Smoking risk assessment performed?: Yes Alcohol Intake: never Drug use: Never Substance use type: does not use Housing: apartment Number of Children: 3 Current gender identity: female What is your relationship status?: Panel score (0-1 are the most socially isolated patients): 0 What type of physical activity do you participate in: none Do you feel safe at home: Yes Do you feel safe in your relationship?: Yes Female Reproductive History Menstrual control method: permanent sterilization Time Spent with Patient Time Spent with Patient: >85 minutes Time was spent: preparing to see the patient(eg.review tests), obtaining and/or reviewing separately otained hiistory, ordering medications,tests, procedures, referring, communicating with other health day care aide, indepentently interpreting results, counseling the patient and care coordination
[2024-08-17] MEDS: Docusate Sodium 100 MG/10 ML CUP 200 MG PO (13:25)
--- NOTE | 2024-08-17 15:07 | PDOC.HHF2F ---
Home Health Referral Home Health Orders Clinical synopsis of why skilled professionals are needed: This 49 years old female patient with a past medical history of seizure disorder on Lamictal and Keppra, pulmonary hypertension, past intentional benzodiazepine overdose, CAD, diabetes presented to the ED at [facility] on 08/15/2024 for evaluation of seizures. Patient reportedly having multiple witnessed generalized seizures lasting longer than 2-minute this morning; EMS witnessed 1 seizure administer midazolam 10 mg the patient. On presentation to the ED patient was altered and fatigue but no focal deficit as per ED provider's assessment. Patient is also still reporting mild persistent right frontal headache starting prior to seizures. Blood work in the ED was asked not significant for any abnormality. The head CT was negative for any acute intracranial process. The patient received Keppra 1 g IV in the ED; a level was sent. Teleneuro consultation was initiated and pending. The hospitalist was consulted and the patient was admitted for evaluation and management of seizures. When met, the patient was alert, vague about the date and slow to follow commands. The patient reported initial aura with migraine prior to seizure with change in vision such as sparkles, fainting sensation, a feeling of nystagmus and dissociation. The patient also reported urinary incontinence at the time of the seizures but no fecal incontinence. Patient denied any other pain besides the headache. Patient denied, fever, sick contact, nausea vomiting and dysuria. Hospitalist was consulted and patient admitted to the medical surgical floor for evaluation and management of seizures. Tele-neurology consultation was completed with the following recommendations: Already on Keppra at home but most likely non-compliance issues determined s/p discussion with neurologist: patient reported Keppra causing tiredness. ? Load with a total of 2000 mg of IV Keppra total - Increased Keppra to 750mg twice daily ? Increase Lamictal by 50 mg AM every week until maximum dose of 200 mg for the morning has been reach- then patient would be on 200mg in AM and 200 mg at HS -Once lamotrigine maxed out at 200 mg orally twice a day, recommendation for neurology to Keppra off by lowering the dose of Keppra by 250 mg for each dose weekly until stop. -EEG completed and showed no focal region of cerebral dysfunction or epileptiform activity. The EEG was normal during the awake and asleep states as well as during photic stimulation and hyperventilation. - MRI w and w/o seizure protocol-unavailable at this facility d/t implemented defribrillator: To be completed outpatient -F/u with neurology - No driving for 6 months or until seen by neurologist. 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 During the stay the patient chronic conditions were treated as per home medicine regimen. The patient did not experience any further episode of seizures. The patient reported feeling back to normal. Education and on medication compliance and avoidance of triggers completed with patient. The patient will be discharged home today increased dose of Keppra and lack Lamictal as mentioned in the above recommendations. The patient will have to follow-up with neurology and with her primary care practitioner within 7 days of discharge. Physical therapy recommendations are for home health physical therapy; patient has been using a front wheel walker during sessions. The patient also benefit from home health nursing to assist her in medicine compliance. Discussed with Dr. Hamlin Registered Nurse: Check all that apply Instruct on new or changed medication(s)/assess compliance: Ordered (Increased dosing of AED ( Keppra) , and additional dose of the second AED9 Lamictal ) Physical Therapist: Check all that apply Increase strength & endurance for safe mobility at home: Ordered To design/establish home maintenance program: Ordered Fall reduction therapy program for patient with history of frequent falls: Ordered Home safety evaluation and teaching/gait training including stair management (if applicable): Ordered Encounter Date and Reason: I certify that a FTF encounter for this patient was performed on August 17, 2024 and that such encounter was related to the primary reason the patient requires home health services. The encounter was conducted in the following manner: By me as the certifying physician, CONSTRUCTION SITE CROSSING GUARD, PA or By an inpatient physician, CONSTRUCTION SITE CROSSING GUARD or PA during an inpatient stay who communicated findings to me, Certification And Authentication I certify that I composed the above information based on my clinical judgment relating to this patient's medical condition and, if applicable, clinical findings communicated to me by the NPP or inpatient physician who performed the FTF encounter. Name of Provider that will be monitoring home health services: Edie Ellis
--- NOTE | 2024-08-17 18:39 | PDOC.CMDIS ---
Date of service: 08/17/24 Time of Service: 18:39 LACE Index Scoring Tool Questions: Length of Stay (in days): 2 Was the patient admitted via the E.D.?: Yes Comorbidities: Diabetes w/o Complication E.D. Visits: 1 Answers: Total Score: 7 Risk of Readmission: Low Risk Care Management Discharge Plan Reason for Hospitalization: Seizure Discharge Plan: Jammie will return home when ready per MD, she will follow up with community providers and transport via private vehicle with family, CM following. Patient/Family Education Needs: Review discharge instructions, discuss Ask Me Three. Services Needed at Discharge: Home Health Care Services (RN; provider identified need on day of discharge. ) SDOH Health Related Social Needs: No Data to Display
[2024-08-19 11:31] LABS: Levetiracetam 17.4 mcg/mL
[2024-08-19 12:24] LABS: Lamotrigine 2.2 mcg/mL (3.0-15.0)
== END 2024-08-17 16:12 | disposition home health service (06) ==
LOC: ER 16:21 → MS 16:54
PROVIDERS: Nurse Practitioner Acute Care; Admitting Provider Family Medicine; Emergency Provider Student in an Organized Health Care Education/Training Program; PCP Family Medicine; Visit Provider Family Medicine
DX: E11.9 Type 2 diabetes mellitus without complications; F31.9 Bipolar disorder, unspecified; G40.909 Epilepsy, unspecified, not intractable, without status epilepticus; Z79.84 Long term (current) use of oral hypoglycemic drugs; Z79.899 Other long term (current) drug therapy; I27.20 Pulmonary hypertension, unspecified; I25.10 Atherosclerotic heart disease of native coronary artery without angina pectoris; I42.9 Cardiomyopathy, unspecified; F17.210 Nicotine dependence, cigarettes, uncomplicated; Z79.85 Long-term (current) use of injectable non-insulin antidiabetic drugs; Z79.891 Long term (current) use of opiate analgesic; M54.9 Dorsalgia, unspecified; R51.9 Headache, unspecified; S80.212A Abrasion, left knee, initial encounter; S80.211A Abrasion, right knee, initial encounter; W19.XXXA Unspecified fall, initial encounter
CPT/HCPCS: 00123; 36415; 80048; 80053; 80175; 80307; 95816; 96365; 96366; 96367; 97162; 97530; 99285; 70450; 80177; 83735; 84443; 85025; 99223; 99233; 99239; G0378; J1953; J3475; J3490

== ENCOUNTER → 2024-08-16 08:15 | Outpatient (BNVA) | payer MEDICARE, MEDICAID, SELFPAY | PROVIDERS: PCP Family Medicine; Referring Provider Family Medicine; Visit Provider Psychiatry & Neurology Neurology ==

== ENCOUNTER 2024-08-28 23:14 | Emergency (ER) | payer MEDICARE, MEDICAID, SELFPAY ==
[2024-08-28] VITALS (10 sets, daily range): BP systolic 78–91; BP diastolic 44–52; PULSE 79–85; RESP 12–17; TEMP 37.2; O2SAT 88–95
--- NOTE | 2024-08-28 23:40 | ED.GENADUL_ITS ---
Discharge Plan Disposition Patient Disposition: Home Condition: Good Discharge Details Clinical Impression: Seizure Primary Care Provider: Edie Ellis ED Provider: Edin Taylor Home Meds and New Rx's Prescriptions: No Action clonazepam 1 mg tablet 1 mg PO BID PRN melatonin 10 mg tablet 10 mg PO HS PRN loratadine 10 mg capsule 10 mg PO DAILY Trintellix 20 mg tablet 20 mg PO DAILY Patient Comments: TAKE ONE TABLET BY MOUTH EVERY DAY mirabegron [Myrbetriq] 25 mg tablet extended release 24 hr 25 mg PO Q24H Patient Comments: TAKE ONE TABLET BY MOUTH EVERY DAY cholecalciferol (vitamin D3) 50 mcg (2,000 unit) capsule 50 mcg PO DAILY naratriptan 2.5 mg tablet 2.5 mg PO BID PRN polyethylene glycol 3350 17 gram/dose Powder 17 g PO DAILY PRN cyanocobalamin (vitamin B-12) 1,000 mcg tablet 1,000 mcg PO DAILY Patient Comments: TAKE ONE TABLET BY MOUTH EVERY DAY icosapent ethyl [Vascepa] 1 gram capsule 2 g PO BID Patient Comments: TAKE TWO CAPSULES BY MOUTH TWICE A DAY dapagliflozin propanediol [Farxiga] 5 mg tablet 5 mg PO DAILY Patient Comments: Take 1 tablet by mouth once a day Entresto 97-103 mg tablet 1 tab PO BID Patient Comments: TAKE ONE TABLET BY MOUTH TWICE A DAY pregabalin 100 mg capsule 100 mg PO TID Patient Comments: Take 1 capsule by mouth three times a day magnesium oxide 400 MG tablet 400 mg PO HS Qty: 0 0RF levothyroxine [Synthroid] 25 MCG tablet 50 mcg PO HS omeprazole 20 mg Capsule,Delayed Release(Dr/Ec) 20 mg PO DAILY prochlorperazine maleate 10 mg Tablet 10 mg PO DAILY PRN (Reason: Headache) albuterol sulfate [Ventolin HFA] 90 mcg/actuation Hfa Aerosol Inhaler 2 puff INHALATION QID PRN naloxone [Narcan] 4 mg/actuation [place],Non-Aerosol 1 spray INTRANASAL ONCE PRN Patient Comments: Never used. aspirin 81 mg tablet,delayed release (DR/EC) 81 mg PO DAILY Qty: 14 0RF Rx Instructions: Take 1 daily with a meal for 30 days estradiol 1 mg tablet See Rx Instructions .ROUTE .COMPLEX Patient Comments: TAKE 1 TABLET BY MOUTH EVERY MORNING THEN 2 TABLETS EVERY EVENING Rx Instructions: --> 1mg qAM and 1.5m,g qPM hydrocortisone 2.5 % cream 1 applic topical QID Qty: 30 6RF acetaminophen 500 mg capsule 1,000 mg PO Q8H PRN PRNQty: 30 0RF bupropion HCl 150 mg tablet extended release 24 hr 150 mg PO BID Patient Comments: TAKE ONE TABLET BY MOUTH TWICE A DAY WITH MEALS metoprolol succinate 100 mg tablet extended release 24 hr 100 mg PO DAILY Patient Comments: TAKE ONE TABLET BY MOUTH EVERY DAY lamotrigine 200 mg tablet 200 mg PO HS naproxen 500 mg tablet 500 mg PO BID bupropion HCl 300 mg tablet extended release 24 hr 300 mg PO DAILY Patient Comments: TAKE ONE TABLET BY MOUTH EVERY DAY. TAKE WITH 150MG DOSE TO EQUAL 450MG levothyroxine 50 mcg tablet 50 mcg PO DAILY Patient Comments: TAKE ONE TABLET BY MOUTH EVERY DAY rosuvastatin 10 mg tablet 10 mg PO HS Patient Comments: TAKE ONE TABLET BY MOUTH AT BEDTIME riboflavin (vitamin B2) [Vitamin B-2] 100 mg tablet 200 mg PO BID Patient Comments: TAKE TWO TABLETS BY MOUTH EVERY DAY TWO TIMES A DAY paroxetine HCl 40 mg tablet 40 mg PO DAILY Patient Comments: TAKE ONE TABLET BY MOUTH EVERY DAY hydromorphone 4 mg tablet 4 mg PO BID Patient Comments: TAKE ONE TABLET BY MOUTH TWICE A DAY FOR PAIN Trulicity 3 mg/0.5 mL pen injector 3 mg SUBCUT QWEEK Patient Comments: INJECT 3MG UNDER THE SKIN ONCE WEEKLY levetiracetam 500 mg Tablet 750 mg PO BID Qty: 90 0RF lamotrigine [Lamictal] 100 mg tablet 50 mg PO DAILY Qty: 4 0RF Rx Instructions: take 50 mg in AM for one week, see your provider for further supply of lamictal to follow the following plan: then 100 mg for one week, then 150mg for one week, then you will take 200 mg two times a day Keep taking your HS dose as ordered by neurology docusate sodium [Colace] 100 mg capsule 100 mg PO DAILY Qty: 30 0RF Discharge Instructions Instructions: Seizures, Adult ED Additional Instructions: At this time your symptoms appear to be consistent with a seizure. This may have been brought about by the transition away from Keppra towards lamotrigine. Please increase your dose as planned with your neurologist. Please drink plenty of fluids and stay well-hydrated. You should not drive, operate machinery, climb heights (such as a ladder), swim, or bathe alone or do anything else which could be dangerous if you would have another seizure. Please abide by this for the next 6 months or until cleared by a physician. If you notice any worsening of your symptoms, or any new symptoms such as vo miting, diarrhea, fever, chills, shortness of breath, chest pain, numbness, weakness, or fainting , please return immediately to the emergency department for reevaluation. Please follow up with your primary care provider as soon as possible for reassessment and reevaluation. As always, it was a pleasure participating in your medical care today. Referrals: Edie Ellis MD [Primary Care Provider] - [facility] General Date/Time Provider Initiated Documentation: 08/28/24 23:15 . HPI Narrative: 49-year-old female with a past medical history of bipolar disorder, type 2 diabetes mellitus, hypothyroidism, high cholesterol, and seizures previously on Keppra but now transitioning to lamotrigine with plans on increasing the dose of lamotrigine in the next few days, who normally has per family 1 seizure per week presents today for evaluation of seizure. Patient was brought in by EMS, and they and patient report that she had 3 seizures at home that lasted approximately 3 minutes each, they were witnessed by family. She was gently laid to the ground. She did not hit her head fall or have any trauma. When EMS arrived she had a very brief postictal phase for 1 minute, and then had a repeat episode of seizures. She was given 10 mg of IM Versed. Blood glucose was in the 90s. She was brought to the ER for further assessment. Patient states that she did slightly micturated on herself. She denies any headache, chest pain, or numbness tingling or weakness. No other complaints at this time. Patient is quite fatigued and tired at this time and notably postictal Related Data Home Medications ?Medication ?Instructions ?Recorded ?Confirmed levothyroxine 25 mcg tablet 50 mcg PO HS 03/05/17 08/28/24 (Synthroid) albuterol sulfate 90 mcg/actuation 2 puff inhalation QID PRN 03/10/19 08/28/24 aerosol inhaler (Ventolin HFA) naloxone 4 mg/actuation nasal 1 spray intranasal ONCE PRN 03/10/19 08/28/24 spray (Narcan) omeprazole 20 mg capsule,delayed 20 mg PO DAILY 03/10/19 08/28/24 release prochlorperazine maleate 10 mg 10 mg PO DAILY PRN Headache 03/10/19 08/28/24 tablet aspirin 81 mg tablet,delayed 81 mg PO DAILY Prevent blood clot 09/30/19 08/28/24 release #14 tabs polyethylene glycol 3350 17 17 g PO DAILY PRN 12/22/19 08/28/24 gram/dose oral powder naratriptan 2.5 mg tablet 2.5 mg PO BID PRN 03/27/20 08/28/24 estradiol 1 mg tablet See Rx Instructions .Route .COMPLEX 06/10/21 08/28/24 cholecalciferol (vitamin D3) 50 50 mcg PO DAILY 11/21/21 08/28/24 mcg (2,000 unit) capsule hydrocortisone 2.5 % topical cream 1 applic topical QID #30 grams 12/31/21 08/28/24 acetaminophen 500 mg capsule 1,000 mg (2 x 500 mg) PO Q8H PRN 05/13/22 08/28/24 PRN #30 caps clonazepam 1 mg tablet 1 mg PO BID PRN 11/14/22 08/28/24 melatonin 10 mg tablet 10 mg PO HS PRN 11/14/22 08/28/24 loratadine 10 mg capsule 10 mg PO DAILY 03/03/23 08/28/24 cyanocobalamin (vitamin B-12) 1,000 mcg PO DAILY 08/13/23 08/28/24 1,000 mcg tablet dapagliflozin propanediol 5 mg 5 mg PO DAILY 08/13/23 08/28/24 tablet (Farxiga) icosapent ethyl 1 gram capsule 2 g PO BID 08/13/23 08/28/24 (Vascepa) pregabalin 100 mg capsule 100 mg PO TID 08/13/23 08/28/24 sacubitril 97 mg-valsartan 103 mg 1 tab PO BID 08/13/23 08/28/24 tablet (Entresto) magnesium oxide 400 mg (241.3 mg 400 mg PO HS #0 tabs 08/17/23 08/28/24 magnesium) tablet bupropion HCl 150 mg 24 hr tablet, 150 mg PO BID 01/07/24 08/28/24 extended release mirabegron 25 mg tablet,extended 25 mg PO Q24H 08/05/24 08/28/24 release 24 hr (Myrbetriq) vortioxetine 20 mg tablet 20 mg PO DAILY 08/05/24 08/28/24 (Trintellix) bupropion HCl 300 mg 24 hr tablet, 300 mg PO DAILY 08/15/24 08/28/24 extended release dulaglutide 3 mg/0.5 mL 3 mg subcut QWEEK 08/15/24 08/28/24 subcutaneous pen injector (Trulicity) hydromorphone 4 mg tablet 4 mg PO BID 08/15/24 08/28/24 lamotrigine 200 mg tablet 200 mg PO HS 08/15/24 08/28/24 levothyroxine 50 mcg tablet 50 mcg PO DAILY 08/15/24 08/28/24 metoprolol succinate 100 mg 100 mg PO DAILY 08/15/24 08/28/24 tablet,extended release 24 hr naproxen 500 mg tablet 500 mg PO BID 08/15/24 08/28/24 paroxetine HCl 40 mg tablet 40 mg PO DAILY 08/15/24 08/28/24 riboflavin (vitamin B2) 100 mg 200 mg PO BID 08/15/24 08/28/24 tablet (Vitamin B-2) rosuvastatin 10 mg tablet 10 mg PO HS 08/15/24 08/28/24 lamotrigine 100 mg tablet 50 mg (1/2 x 100 mg) PO DAILY #4 08/16/24 08/28/24 (Lamictal) tabs levetiracetam 500 mg tablet 750 mg (1.5 x 500 mg) PO BID #90 08/16/24 08/28/24 tabs docusate sodium 100 mg capsule 100 mg PO DAILY #30 caps 08/17/24 08/28/24 (Colace) Previous Rx's ?Medication ?Instructions ?Recorded aspirin 81 mg tablet,delayed 81 mg PO DAILY Prevent blood clot 09/30/19 release #14 tabs hydrocortisone 2.5 % topical cream 1 applic topical QID #30 grams 12/31/21 acetaminophen 500 mg capsule 1,000 mg (2 x 500 mg) PO Q8H PRN 05/13/22 PRN #30 caps magnesium oxide 400 mg (241.3 mg 400 mg PO HS #0 tabs 08/17/23 magnesium) tablet lamotrigine 100 mg tablet 50 mg (1/2 x 100 mg) PO DAILY #4 08/16/24 (Lamictal) tabs levetiracetam 500 mg tablet 750 mg (1.5 x 500 mg) PO BID #90 08/16/24 tabs docusate sodium 100 mg capsule 100 mg PO DAILY #30 caps 08/17/24 (Colace) Allergies Allergy/AdvReac Type Severity Reaction Status Date / Time Penicillins Allergy Severe throat Verified 08/28/24 23:35 closes Sulfa (Sulfonamide Allergy Mild Hives Verified 08/28/24 23:35 Antibiotics) General Stated Complaint: Seizure RENATO: 3 Review of Systems All systems reviewed & are unremarkable except as noted in HPI and below Exam Narrative Exam Narrative: 1.Const: Well-nourished, Well-developed, appearing stated age 2.Eyes: PERRL, no conjunctival injection, and symmetrical lids. 3.ENT: Atraumatic external nose and ears. Moist MM. Neck: Symmetric, trachea midline, No thyromegaly. No tongue biting lesions 4.CVS: +S1/S2, No murmurs or gallops. Peripheral pulses 2+ and equal in all extremities. Brisk capillary refill in all extremities. 5.RESP: Unlabored respiratory effort. Clear to auscultation bilaterally. No wheezes rales or rhonchi 6.GI: Soft, Nontender/Nondistended, No hepatosplenomegaly. No guarding or rebound. 7.MSK: Normocephalic/Atraumatic, Extremities w/o deformity or ttp No cyanosis or clubbing, Normal movement of all extremities 8.Skin: Warm, Dry. No rashes or lesions. 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 Sensation grossly intact, no focal neurologic deficits.Notably sleepy and postictal 10.Psych: (AAO) x3. Course Vital Signs Vital signs: Vital Signs Temperature 37.2 C 08/28/24 23:20 Pulse 83 08/28/24 23:20 Respiratory Rate 13 08/28/24 23:20 Blood Pressure 87/52 L 08/28/24 23:20 Pulse Oximetry 94 08/28/24 23:20 Temperature 37.2 C 08/28/24 23:20 Temperature Source Temporal Artery Scan 08/28/24 23:20 Pulse 83 08/28/24 23:20 Respiratory Rate 13 08/28/24 23:20 Respiratory Effort Normal 08/28/24 23:29 Respiratory Depth Normal 08/28/24 23:29 Respiratory Pattern Bradypnea 08/28/24 23:29 Blood Pressure 87/52 L 08/28/24 23:20 Blood Pressure Position Sitting 08/28/24 23:20 Pulse Oximetry 94 08/28/24 23:20 Oxygen Delivery Method Room Air 08/28/24 23:20 Oxygen Flow Rate 0 08/28/24 23:20 Medical Decision Making 49-year-old female with a past medical history of bipolar disorder, type 2 diabetes mellitus, hypothyroidism, high cholesterol, and seizures previously on Keppra but now transitioning to lamotrigine with plans on increasing the dose of lamotrigine in the next few days, who normally has per family 1 seizure per week presents today for evaluation of seizure. Patient was brought in by EMS, and they and patient report that she had 3 seizures at home that lasted approximately 3 minutes each, they were witnessed by family. She was gently laid to the ground. She did not hit her head fall or have any trauma. When EMS arrived she had a very brief postictal phase for 1 minute, and then had a repeat episode of seizures. She was given 10 mg of IM Versed. Blood glucose was in the 90s. She was brought to the ER for further assessment. Patient states that she did slightly micturated on herself. She denies any headache, chest pain, or numbness tingling or weakness. No other complaints at this time. 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 No signs of trauma for the head neck or chest. She is able to answer questions and follow commands. GCS is 14, secondary to her eyes being closed but opening with command. Suspect seizure secondary to medical transition from the Keppra to lamotrigine. Will rehydrate as her blood pressure is slightly soft with a BP of 87/52. I suspect that her current clinical picture is also influenced by the 10 of Versed that she received prior to arrival. We will give 2 g of Keppra, monitor closely evaluate for other concerning etiologies and reassess. She has no neck stiffness or headache to suggest bleed or meningitis. No fever to suggest infection. She denies any overdose. 2:18 AM On reassessment patient is feeling much better. CT scan results have returned, no acute process. Laboratory workup has returned unremarkable. Repeat neurologic exam shows no neurologic deficits or abnormality. Patient feels well and would like to go home. Discussed the case with the patient's significant other at bedside, and he feels comfortable with the plan as well. Patient currently is on lamotrigine 200 mg in the morning and 75 at night. Plan was to increase to 100 mg at night with eventual transition to 200 mg at night. We recommend that the patient contact neurology for close follow-up and reassessment, and we do recommend that she begins that transition to the higher dose now as well. Patient is stable for discharge at this time. No neurologic deficit. We did get the patient up, ambulated her throughout the emergency department. She did well with this. No syncope, no tachycardia, or other abnormalities. Patient has received a liter of lactated Ringer's. Recommend continued fluids at home. Patient states that she feels at her baseline for her normal postictal status after seizures. Patient will be discharged home. I have extensively reviewed the treatment plan and discharge instructions with the patient and their family. I have addressed all patient concerns at this time. The patient and family was made aware of what symptoms to monitor for that would warrant a return to the emergency department. Discussed the plan with the patient and family, they demonstrate verbal understanding and agreement with our assessment and plan at this time. The documentation in this chart was dictated using Helium dictation software. Please excuse any dictation errors. FINDINGS: Brain: Normal. No hemorrhage. Unremarkable white matter. No mass effect. Cerebral ventricles: No ventriculomegaly. Paranasal sinuses: Visualized sinuses are unremarkable. No fluid levels. Mastoid air cells: Visualized mastoid air cells are well aerated. Bones: Unremarkable. No acute fracture. Soft tissues: Unremarkable. IMPRESSION: No acute intracranial abnormality. Thank you for allowing us to participate in the care of your patient. Dictated and Authenticated by: Taurus Reed MD 08/29/2024 1:21 AM Eastern Time ([place] & [place]) Quality:SDOH Health Related Social Needs: No Data to Display PFSH All Active Problems (Updated 08/29/24 @ 01:49 by Edin Taylor DO) Seizure (Acute) Contraindication to deep vein thrombosis (DVT) prophylaxis (Acute) Seizure (Acute) Intentional benzodiazepine overdose (Acute) Patellofemoral arthritis of left knee (Acute) Pulmonary hypertension (Chronic) Acute respiratory failure with hypoxia (Acute) Pulmonary edema (Acute) Acute respiratory distress (Acute) COVID-19 (Acute) Bilateral carpal tunnel syndrome (Acute) S/P R ECTR: 05/13/2022 Amplified musculoskeletal pain (Acute) Tendonitis of long head of biceps brachii of right shoulder (Acute) Bursitis of right shoulder (Acute) Traumatic tear of right rotator cuff (Acute) Calcific tendinitis of right shoulder (Acute) 40mg depo-medrol injection: 02/11/2022 Lateral epicondylitis of right elbow (Acute) 40mg depo-medrol injection: 02/11/2022 Hematest positive stools (Acute) Cardiomyopathy (Chronic) last echocardiogram 01/27/2019, LVEF 50-55%, no regional wall motion abnormalit ies, mild LVH, mild MR; normal RV size and function Bipolar disorder (Chronic) 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 (Acute 01/25/14) Atypical chest pain (Acute) Type 2 diabetes mellitus (Chronic) Palpitations (Acute) Spell of altered consciousness (Acute) Elevated brain natriuretic peptide (BNP) level (Acute) Chest pain (Acute) Screening for colon cancer (Acute) Tobacco use (Acute) Fecal occult blood test positive (Acute) Medical History Knee abrasion Myalgia Urinary incontinence Fatigue Shortness of breath Dizziness, nonspecific Orthostasis Elbow fracture, right Unresponsive episode Hyperthyroidism Carpal tunnel syndrome, left Impingement syndrome of left shoulder (~03/2019) Left rotator cuff tear (~03/2019) Tendinitis of long head of biceps brachii of left shoulder (~03/2019) Bursitis of left shoulder (~03/2019) Cervical radiculopathy bilateral Acute kidney injury DVT prophylaxis Discharge planning issues Dyspnea 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) Chronic migraine (03/07/15) Medication overuse headache (03/07/15) Migraine headache with aura (03/07/15) Migraine headache without aura (03/07/15) control (01/25/14) Dehydration Suicidal ideation Change in mental status Tachycardia Splenomegaly Lactose intolerance Hyperlipidemia Depression Anxiety Chronic pain syndrome CAD (coronary artery disease) mild non-obstructive disease per cardiac cath report from [facility] [place] [facility] [place], more recent repeat cath unchanged but with pulmonary HTN Morbid obesity Diabetes Polycystic ovaries Surgical History S/P hysterectomy History of arthroscopy of left shoulder Hx of cardiac catheterization 08/2021-no stent placed History of endometrial ablation History of section x2 Previous back surgery Social History Smoking/Tobacco Use Status: Former Tobacco Use Quit status: quit date established Smoking risk assessment performed?: Yes Alcohol Intake: never Drug use: Never Substance use type: does not use Housing: apartment Number of Children: 3 Current gender identity: female What is your relationship status?: Panel score (0-1 are the most socially isolated patients): 0 What type of physical activity do you participate in: none Do you feel safe at home: Yes Do you feel safe in your relationship?: Yes Female Reproductive History Menstrual control method: permanent sterilization
--- NOTE | 2024-08-28 23:45 | DI.CT_ITS ---
Exam(s) CT HEAD WO EXAM: CT HEAD WO CLINICAL HISTORY: seizure, eval for bleed/trauma. TECHNIQUE: Imaging Protocol: Axial computed tomography images with coronal and sagittal reformatted images were created and reviewed COMPARISON: CT CT HEAD WO from 08/15/2024 FINDINGS: There are no skull fractures. There is no fluid in the visualized paranasal sinuses. There is no evidence of intracranial hemorrhage, mass effect, or shift of midline structures. There are no extra-axial fluid collections. The ventricles are not enlarged or shifted and there is no blo od within the ventricular system nor within the basal cisterns. IMPRESSION: No acute intracranial findings on this noninfused CT scan of the brain. RADIATION DOSE DELIVERED: 856.73mGy.cm Total DLP DATA REPOSITORY: All CT scans at this facility are submitted to the National Radiology Data Registry (NRDR) Dose Index Registry (DIR) with the [employer] ([employer]). RADIATION OPTIMIZATION: All CT scans at this facility use at least one of these dose optimization te chniques: automated exposure control; mA and/or kV adjustment per patient size (includes targeted exa ms where dose is matched to clinical indication); or iterative reconstruction.
[2024-08-28] MEDS: Lactated Ringers 1,000 ML 1000 ML IV (23:50)
[2024-08-28 23:55] LABS: BE (Venous) 2 mmol/L (-2-3); HCO3 (Venous) 27 mmol/L (23-28); O2 Sat (Venous) 94 %; TCO2 (Venous) 24 mmol/L (24-29); pCO2 (Venous) 43 mmHg (41-51); pO2 (Venous) 74 mmHg
[2024-08-28] MEDS: levETIRAcetam 2,000 MG in Normal Saline 100 ML 400 MG IVPB (23:56)
[2024-08-28 23:58] LABS: Abs Immature Grans 0.01 10^3/uL (0.0-0.06); Absolute Basophil Count 0.06 10^3/uL (0.0-0.2); Absolute Eosinophil Count 0.28 10^3/uL (0.0-0.7); Absolute Lymphocyte Count 3.33 10^3/uL (1.2-3.4); Absolute Monocyte Count 0.52 10^3/uL (0.1-0.8); Basophils % 0.9 %; Eosinophils % 4.1 %; HCT 44.2 % (36.0-46.0); HGB 14.5 g/dL (11.2-15.7); Immature Grans % 0.1 %; Lymphocytes % 48.3 %; MCH 30.5 pg (27.0-33.0); MCHC 32.8 % (32.0-36.0); MCV 93 fL (80-95); MPV 10.3 fL (8.0-11.0); Monocytes % 7.5 %; Neutrophils % 39.1 %; Platelet Count 197 10^3/uL (130-400); RBC 4.75 10^6/uL (3.93-5.22); RDW 12.1 % (11.7-14.6); RDW-SD 41.6 fL
[2024-08-29] VITALS (20 sets, daily range): BP systolic 79–100; BP diastolic 45–63; PULSE 71–81; RESP 11–20; O2SAT 92–96
[2024-08-29 00:14] LABS: ALT 26 U/L (14-59); AST 16 U/L (15-37); Albumin 3.3 g/dL (3.4-5.0); Alkaline Phosphatase 46 U/L (46-116); Anion Gap 8.2 mmol/L (3-11); BUN 17 mg/dL (7-18); Bilirubin, Total 0.38 mg/dL (0.2-1.0); CO2 27.8 mmol/L (21.0-32.0); CREATININE 0.8 mg/dL (0.55-1.02); Calcium 8.5 mg/dL (8.5-10.1); Chloride 105 mmol/L (98-107); Estimated GFR 90.27 (mL/min/1.73m2); Glucose 107 mg/dL (74-106); Potassium 3.8 mmol/L (3.5-5.1); Sodium 141 mmol/L (136-145); Total Protein 6.4 g/dL (6.4-8.2)
[2024-08-29 00:20] LABS: ETHANOL BLOOD < 3.0 mg/dL (<10)
--- NOTE | 2024-08-29 01:22 | DI.VRAD_ITS ---
PROCEDURE INFORMATION: Exam: CT Head Without Contrast Exam date and time: 08/29/2024 12:26 AM Age: 49 years old Clinical indication: Other: Seizure, eval for bleed/trauma TECHNIQUE: Imaging protocol: Computed tomography of the head without contrast. Radiation optimization: All CT scans at this facility use at least one of these dose optimization techniques: automated exposure control; mA and/or kV adjustment per patient size (includes targeted exams where dose is matched to clinical indication); or iterative reconstruction. COMPARISON: CT HEAD WO 08/15/2024 1:12 PM FINDINGS: Brain: Normal. No hemorrhage. Unremarkable white matter. No mass effect. Cerebral ventricles: No ventriculomegaly. Paranasal sinuses: Visualized sinuses are unremarkable. No fluid levels. Mastoid air cells: Visualized mastoid air cells are well aerated. Bones: Unremarkable. No acute fracture. Soft tissues: Unremarkable. IMPRESSION: No acute intracranial abnormality. Dictated and Authenticated by: Taurus Reed MD. Ordering:ANGELA Jesus MD
[2024-08-31 13:05] LABS: Lamotrigine 2.1 mcg/mL (3.0-15.0)
== END 2024-08-29 02:20 | disposition home or self-care (01) ==
PROVIDERS: Emergency Provider Student in an Organized Health Care Education/Training Program; PCP Family Medicine
DX: R56.9 Unspecified convulsions (principal)
CPT/HCPCS: 36416; 80053; 80175; 82805; 96361; 96365; 99284; 70450; 80320; 85025; 99283; J1953

== ENCOUNTER 2024-09-21 14:45 | Observation (INO) | payer MEDICARE, MEDICAID, SELFPAY ==
[2024-09-21] VITALS (68 sets, daily range): BP systolic 92–160; BP diastolic 52–115; PULSE 66–90; RESP 8–31; TEMP 36.1–37; O2SAT 88–100
--- NOTE | 2024-09-21 14:49 | ED.GENADUL_ITS ---
Discharge Plan Disposition Patient Disposition: Admit to [facility] Discharge Details Clinical Impression: Brain TIA Admit Date/Time: 09/21/24 19:42 Admit Provider: Nikhil Conner Attending Provider: Nikhil Conner Primary Care Provider: Edie Ellis ED Provider: Prudencio Sims [facility] General Date/Time Provider Initiated Documentation: 09/21/24 14:47 . HPI Narrative: MDM This is an overall well-appearing normothermic and not tachycardic 49-year-old female with difficulty with word finding and reported confusion from primary care provider's office concerning for the possibility of CVA versus for which she will receive 1 g of levetiracetam had CT angiogram with vessel imaging. No pain or proportion to suggest necrotizing soft tissue infection. Soft nontender abdomen so not suspicious for any intra-abdominal process. No chest pain to suggest ACS however will obtain ECG to assess for dysrhythmia. Fingerstick blood glucose within normal limits on suspicion is low for DKA. No clear tonic- clonic activity no loss of bowel or bladder control. In the absence of chest pain my suspicion is low for thoracic aortic dissection. Patient is on bupropion which certainly could lower her seizure threshold. 4:[address] head with no acute abnormalities. No critical stenoses. CBC with erythrocytosis. No thrombocytopenia. No leukocytosis. Negative hCG. Portable chest with no acute findings. Negative ethanol, acetaminophen, reassuring comprehensive metabolic panel with no MACY. No acute LFT abnormalities. Normal reassuring magnesium. Undetectable salicylate. Normal reassuring TSH. 4:30 PM I spoke with neurology and they advised continuing the patient's lamotrigine. Advised hospitalization for MRI, EEG and urinalysis and chest x-ray. Urinalysis has been ordered. Chest x-ray complete. Patient reportedly took some of her husbands Ritalin. She has rapid pressured speech. I gave her 2 mg of IV midazolam and this resolved. 5 PM I spoke with Dr. Conner who agreed graciously to accept the patient for hospitalization. 10:47 PM Neurology recommendations sent up with patient to the MedSurg unit. Recommended maintenance dose of lamotrigine. No indication for lumbar puncture. Chronic conditions affecting the care of the patient: Bipolar diabetes hypothyroid hyperlipidemia History obtained from an outside historian: Paramedics External record review: N/A Diagnostic interpretations performed by me: Per my independent interpretation chest x-ray shows: Per my independent interpretation EKG shows: Narrow complex normal sinus rhythm at a rate of 80. Left axis deviation no signs of LVH. Poor R wave progression. DE and QTc within normal limits. Compared to prior dated 2 months ago no acute abnormalities. Low voltage is persistent. No acute injury pattern. ]Medications: Levetiracetam midazolam. Social determinants of health affecting disposition: N/A Management discussed with: Hospitalist neurology Treatment/interventions considered: N/A Response to therapies provided: N/A HPI This is a 49-year-old female history of type 2 diabetes seizures on lamotrigine arrived to the emergency department via EMS in the setting of period of confus ion and reported word finding troubles. Patient had a reassuring fingerstick blood glucose with paramedics at 93. Unable to obtain additional history secondary to the acuity of the patient's presentation. Exam General: Well-appearing in mild distress speaking in 2-3 word sentences. Head: Normocephalic, atraumatic. Eye:[Pupils equal, round reactive to light.] Extraocular eye movements intact. No conjunctival injection. No scleral icterus. Ear, nose, mouth, throat: Grossly normal inspection. Normal voice, handling secretions normally. Neck: Trachea midline. Cardiovascular: Well-perfused distal extremities. Regular rate and rhythm Respiratory: Nonlabored respiration. Clear lungs Gastrointestinal: Nondistended abdomen. Musculoskeletal: No edema. Moving all 4 extremities spontaneously. Skin: Normal for age and race, grossly normal temperature and turgor. No acute rash. Neurologic: Alert to person place and time. GCS 15. Patient is quite slow to respond. She is not aphasic however has difficulty naming items. She does have some left upper extremity weakness. No pronator drift. Please see neurological assessment for complete NIH stroke scale. Psychiatric: Mood and manner are appropriate. Grooming and personal hygiene are appropriate. Related Data Home Medications ?Medication ?Instructions ?Recorded ?Confirmed levothyroxine 25 mcg tablet 50 mcg PO HS 03/05/17 09/21/24 (Synthroid) albuterol sulfate 90 mcg/actuation 2 puff inhalation QID PRN 03/10/19 09/21/24 aerosol inhaler (Ventolin HFA) naloxone 4 mg/actuation nasal 1 spray intranasal ONCE PRN 04/18/19 10/30/24 spray (Narcan) omeprazole 20 mg capsule,delayed 20 mg PO DAILY 03/10/19 09/21/24 release prochlorperazine maleate 10 mg 10 mg PO DAILY PRN Headache 03/10/19 09/21/24 tablet aspirin 81 mg tablet,delayed 81 mg PO DAILY Prevent blood clot 09/30/19 09/21/24 release #14 tabs polyethylene glycol 3350 17 17 g PO DAILY PRN 12/22/19 09/21/24 gram/dose oral powder naratriptan 2.5 mg tablet 2.5 mg PO BID PRN 03/27/20 09/21/24 estradiol 1 mg tablet See Rx Instructions .Route .COMPLEX 06/10/21 09/21/24 cholecalciferol (vitamin D3) 50 50 mcg PO DAILY 11/21/21 09/21/24 mcg (2,000 unit) capsule hydrocortisone 2.5 % topical cream 1 applic topical QID #30 grams 12/31/2109/21 acetaminophen 500 mg capsule 1,000 mg (2 x 500 mg) PO Q8H PRN 05/13/22 09/21/24 PRN #30 caps clonazepam 1 mg tablet 1 mg PO BID PRN 11/14/22 09/21/24 melatonin 10 mg tablet 10 mg PO HS PRN 11/14/22 09/21/24 loratadine 10 mg capsule 10 mg PO DAILY 03/03/23 09/21/24 cyanocobalamin (vitamin B-12) 1,000 mcg PO DAILY 08/13/23 09/21/24 1,000 mcg tablet dapagliflozin propanediol 5 mg 5 mg PO DAILY 08/13/23 09/21/24 tablet (Farxiga) pregabalin 100 mg capsule 100 mg PO TID 08/13/23 09/21/24 sacubitril 97 mg-valsartan 103 mg 1 tab PO BID 08/13/23 09/21/24 tablet (Entresto) magnesium oxide 400 mg (241.3 mg 400 mg PO HS #0 tabs 08/17/23 09/21/24 magnesium) tablet bupropion HCl 150 mg 24 hr tablet, 150 mg PO DAILY 01/07/24 09/21/24 extended release mirabegron 25 mg tablet,extended 25 mg PO Q24H 08/05/24 09/21/24 release 24 hr (Myrbetriq) vortioxetine 20 mg tablet 20 mg PO DAILY 08/05/24 09/21/24 (Trintellix) bupropion HCl 300 mg 24 hr tablet, 300 mg PO DAILY 08/15/24 09/21/24 extended release dulaglutide 3 mg/0.5 mL 3 mg subcut QWEEK 08/15/24 09/21/24 subcutaneous pen injector (Trulicity) hydromorphone 4 mg tablet 4 mg PO BID 08/15/24 09/21/24 lamotrigine 200 mg tablet 200 mg PO HS 08/15/24 09/21/24 levothyroxine 50 mcg tablet 50 mcg PO DAILY 08/15/24 09/21/24 metoprolol succinate 100 mg 100 mg PO DAILY 08/15/24 09/21/24 tablet,extended release 24 hr naproxen 500 mg tablet 500 mg PO BID 08/15/24 09/21/24 paroxetine HCl 40 mg tablet 40 mg PO DAILY 08/15/24 09/21/24 riboflavin (vitamin B2) 100 mg 200 mg PO BID 08/15/24 09/21/24 tablet (Vitamin B-2) rosuvastatin 10 mg tablet 10 mg PO HS 08/15/24 09/21/24 lamotrigine 100 mg tablet 50 mg (1/2 x 100 mg) PO DAILY #4 08/16/24 09/21/24 (Lamictal) tabs docusate sodium 100 mg capsule 100 mg PO DAILY #30 caps 08/17/24 09/21/24 (Colace) hydroxyzine HCl 25 mg tablet 25 mg PO TID PRN 09/21/24 09/21/24 Previous Rx's ?Medication ?Instructions ?Recorded aspirin 81 mg tablet,delayed 81 mg PO DAILY Prevent blood clot 09/30/19 release #14 tabs hydrocortisone 2.5 % topical cream 1 applic topical QID #30 grams 12/31/21 acetaminophen 500 mg capsule 1,000 mg (2 x 500 mg) PO Q8H PRN 05/13/22 PRN #30 caps magnesium oxide 400 mg (241.3 mg 400 mg PO HS #0 tabs 08/17/23 magnesium) tablet lamotrigine 100 mg tablet 50 mg (1/2 x 100 mg) PO DAILY #4 09/24/24 (Lamictal) tabs docusate sodium 100 mg capsule 100 mg PO DAILY #30 caps 08/17/24 (Colace) Allergies Allergy/AdvReac Type Severity Reaction Status Date / Time Penicillins Allergy Severe throat Verified 09/21/24 15:26 closes Sulfa (Sulfonamide Allergy Mild Hives Verified 09/21/24 15:26 Antibiotics) General RENATO: 3 Medical Decision Making Quality:SDOH Health Related Social Needs: No Data to Display PFSH All Active Problems (Updated 09/21/24 @ 19:45 by Nikhil Conner) Encephalopathy acute (Acute) Brain TIA (Acute) Seizure (Acute) Contraindication to deep vein thrombosis (DVT) prophylaxis (Acute) Seizure (Acute) Intentional benzodiazepine overdose (Acute) Patellofemoral arthritis of left knee (Acute) Pulmonary hypertension (Chronic) Acute respiratory failure with hypoxia (Acute) Pulmonary edema (Acute) Acute respiratory distress (Acute) COVID-19 (Acute) Bilateral carpal tunnel syndrome (Acute) S/P R ECTR: 05/13/2022 Amplified musculoskeletal pain (Acute) Tendonitis of long head of biceps brachii of right shoulder (Acute) Bursitis of right shoulder (Acute) Traumatic tear of right rotator cuff (Acute) Calcific tendinitis of right shoulder (Acute) 40mg depo-medrol injection: 02/11/2022 Lateral epicondylitis of right elbow (Acute) 40mg depo-medrol injection: 02/11/2022 Hematest positive stools (Acute) Cardiomyopathy (Chronic) last echocardiogram 01/27/2019, LVEF 50-55%, no regional wall motion abnormalities, mild LVH, mild MR; normal RV size and function Bipolar disorder (Chronic) 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 (Acute 01/25/14) Atypical chest pain (Acute) Type 2 diabetes mellitus (Chronic) Palpitations (Acute) Spell of altered consciousness (Acute) Elevated brain natriuretic peptide (BNP) level (Acute) Chest pain (Acute) Screening for colon cancer (Acute) Tobacco use (Acute) Fecal occult blood test positive (Acute) Medical History Knee abrasion Myalgia Urinary incontinence Fatigue Shortness of breath Dizziness, nonspecific Orthostasis Elbow fracture, right Unresponsive episode Hyperthyroidism Carpal tunnel syndrome, left Impingement syndrome of left shoulder (~03/2019) Left rotator cuff tear (~03/2019) Tendinitis of long head of biceps brachii of left shoulder (~03/2019) Bursitis of left shoulder (~03/2019) Cervical radiculopathy bilateral Acute kidney injury DVT prophylaxis Discharge planning issues Dyspnea 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) Chronic migraine (03/07/15) Medication overuse headache (03/07/15) Migraine headache with aura (03/07/15) Migraine headache without aura (03/07/15) control (01/25/14) Dehydration Suicidal ideation Change in mental status Tachycardia Splenomegaly Lactose intolerance Hyperlipidemia Depression Anxiety Chronic pain syndrome CAD (coronary artery disease) mild non-obstructive disease [place] [facility] [place] more recent repeat cath unchanged but with pulmonary HTN Morbid obesity Diabetes Polycystic ovaries Surgical History S/P hysterectomy History of arthroscopy of left shoulder Hx of cardiac catheterization 08/2021-no stent placed History of endometrial ablation History of section x2 Previous back surgery Social History Smoking/Tobacco Use Status: Former Tobacco Use Quit status: quit date established Smoking risk assessment performed?: Yes Alcohol Intake: never Drug use: Never Substance use type: does not use Housing: apartment Number of Children: 3 Current gender identity: female What is your relationship status?: Panel score (0-1 are the most socially isolated patients): 0 What type of physical activity do you participate in: none Do you feel safe at home: Yes Do you feel safe in your relationship?: Yes Female Reproductive History Menstrual control method: permanent sterilization
[2024-09-21 14:55] LABS: Abs Immature Grans 0.01 10^3/uL (0.0-0.06); Absolute Basophil Count 0.05 10^3/uL (0.0-0.2); Absolute Eosinophil Count 0.13 10^3/uL (0.0-0.7); Absolute Lymphocyte Count 3.59 10^3/uL (1.2-3.4); Absolute Monocyte Count 0.44 10^3/uL (0.1-0.8); Basophils % 0.7 %; Eosinophils % 1.9 %; HCT 47.6 % (36.0-46.0); HGB 15.9 g/dL (11.2-15.7); Immature Grans % 0.1 %; Lymphocytes % 53.4 %; MCH 30.1 pg (27.0-33.0); MCHC 33.4 % (32.0-36.0); MCV 90 fL (80-95); MPV 9.5 fL (8.0-11.0); Monocytes % 6.5 %; Neutrophils % 37.4 %; Platelet Count 241 10^3/uL (130-400); RBC 5.28 10^6/uL (3.93-5.22); RDW 12.4 % (11.7-14.6); WBC 6.72 10^3/uL (4.4-10.8)
--- NOTE | 2024-09-21 15:00 | RT.EKG_ITS ---
APPROVED REPORT Exam: Resting ECG Reason for Exam: Confusion Patient Location: E HR:80 bpm ECG Measurements Heart Rate 80 AXIS ID 174 P 44 QRSd 96 QRS -11 QT 428 T 14 QTc 495 Conclusion Sinus rhythm...normal P axis, V-rate 60- 99 Inferior infarct, old...Q >35mS, II III aVF Anterior infarct, old...Q >40mS, abnormal ST-T, V2-V5 Narrow complex normal sinus rhythm at a rate of 80. Left axis deviation no signs of LVH. Poor R wav e progression. ID and QTc within normal limits. Compared to prior dated 2 months ago no acute abnor malities. Low voltage is persistent. No acute injury pattern.
[2024-09-21] MEDS: Normal Saline - Diluent 50 ML VIAL IJ ×2 (15:07→15:25)
[2024-09-21 15:21] LABS: Salicylate < 2.8 mg/dL (<2.8)
[2024-09-21 15:22] LABS: Acetaminophen < 2 ug/mL (10-30); HCG Qual (Serum) Negative
[2024-09-21 15:29] LABS: ALT 32 U/L (14-59); AST 20 U/L (15-37); Albumin 4.1 g/dL (3.4-5.0); Alkaline Phosphatase 52 U/L (46-116); Anion Gap 8.6 mmol/L (3-11); BUN 15 mg/dL (7-18); Bilirubin, Total 0.55 mg/dL (0.2-1.0); CO2 29.4 mmol/L (21.0-32.0); CREATININE 0.9 mg/dL (0.55-1.02); Calcium 9.7 mg/dL (8.5-10.1); Chloride 102 mmol/L (98-107); ETHANOL BLOOD < 3.0 mg/dL (<10); Estimated GFR 78.37 (mL/min/1.73m2); Glucose 90 mg/dL (74-106); Magnesium 2.2 mg/dL (1.8-2.4); Potassium 4.2 mmol/L (3.5-5.1); Sodium 140 mmol/L (136-145); TSH (W/Ref FT4) 1.46 uIU/mL (0.36-3.74); Total Protein 7.4 g/dL (6.4-8.2); Troponin I < 4 ng/L (<or=51)
[2024-09-21] MEDS: Midazolam 2 MG/2 ML VIAL IVP (15:36)
--- NOTE | 2024-09-21 15:40 | NUR.NOTE ---
Nursing Note: patient told this RN that she did not sleep all n ight last night d/t taking care of her . She said this AM she took on of her husbands ritalin to stay awake today
--- NOTE | 2024-09-21 15:45 | DI.CT_ITS ---
Exam(s) CT BRAIN NECK CTA EXAM: CT BRAIN NECK CTA zz CLINICAL HISTORY: Acute encephalopathy. TECHNIQUE: Imaging Protocol: Axial CT angiography was performed with multi-slice acquisition and mu lti-planar and/or 3D reconstructions. CONTRAST MATERIAL: Intravenous: Omnipaque 350 Contrast volume:70 cc COMPARISON: CT CT HEAD WO from 08/29/2024 FINDINGS: CTA Neck W: Aortic arch anatomy: The aortic arch anatomy is conventional and there is no significant stenosis at the origin of the great vessels off of the aortic arch. No intimal flap evident. Anterior circulation: Both common carotid arteries ascend with normal luminal diameters. At the level the carotid bulbs and proximal internal carotid arteries there is minimal plaque without hemodynamically significant stenosis evident. Posterior circulation: Both vertebral arteries originate in conventional fashion off of the subclavian arteries and there is no obvious stenosis at the origin of the vertebral arteries. Both vertebral arteries exhibit normal luminal diameters within the foramen transversarium. Left alfredito tebral artery is dominant. No intraluminal thrombus nor dissection of the vertebral arteries. Both vertebral arteries contribute to the formation of the basilar artery at the skull base. CTA Brain W: Anterior circulation: Both internal carotid arteries are patent in the skull base-carotid canals as well as within the cave rnous sinuses. The supraclinoid aspects of the ICAs are patent. Both A1 segments are patent as are the anterior cer ebral arteries and there is no evidence of aneurysm at the level of the anterior communicating artery . Both middle cerebral arteries are patent with no evidence of significant stenosis nor intraluminal th rombus. There also no aneurysms of these vessels. Posterior circulation: The basilar artery ascends in the midline. Distally it gives off patent bilateral superior cerebella r arteries. Above this level the basilar artery terminates as patent left posterior cerebral artery. The right P 1 segment is developmentally thin as the right posterior cerebral artery is predominantly fed by a po sterior communicating artery on the right side of the [id number]. The right [employer] is patent There is no evidence of aneurysm at the tip of the basilar artery nor elsewhere in the [id number] is. CT BRAIN: There is no evidence of intracranial hemorrhage, mass effect, or shift of midline structures. There are no extra-axial fluid collections. Ventricles are not enlarged or shifted. There are no ring enh ancing lesions in the brain and no abnormal meningeal enhancement. IMPRESSION: 1. Patent carotid arteries in the neck. No hemodynamically significant stenosis. 2. Patent vertebral arteries. 3. Patent intracranial arteries. 4. There are no ring enhancing lesions in brain and there is no abnormal meningeal enhancement. No i ntracranial hemorrhage. Report called by myself to ER 09/21/2024 at 3:48 p.m. RADIATION DOSE DELIVERED: Total DLP DATA REPOSITORY: All CT scans at this facility are submitted to the National Radiology Data Registry (NRDR) Dose Index Registry (DIR) with the [employer] (A[employer]). RADIATION OPTIMIZATION: All CT scans at this facility use at least one of these dose optimization te chniques: automated exposure control; mA and/or kV adjustment per patient size (includes targeted exa ms where dose is matched to clinical indication); or iterative reconstruction.
--- NOTE | 2024-09-21 15:46 | DI.RAD_ITS ---
Exam(s) XR PORTABLE CHEST AP EXAM: XR PORTABLE CHEST AP CLINICAL HISTORY: Acute encephalopathy TECHNIQUE: 2D digital imaging was performed. COMPARISON: CR XR CHEST 2V PA LATERAL from 03/18/[address] CHEST/ABD/PEL W from 07/05/2024 FINDINGS: LUNGS: Clear. No pleural abnormality seen. HEART: Normal size. AORTA: Normal diameter. BONES: Unremarkable for age. Soft tissues: Battery pack left lateral lower chest wall with lead extending superiorly overlying the midline of the chest. IMPRESSION: No acute findings. DATA REPOSITORY: RADIATION DOSE DELIVERED:
--- NOTE | 2024-09-21 17:55 | W.PM.HP.N ---
Date of service: 09/21/24 Time of Service: 17:55 Assessment and Plan Assessment and plan (1) Seizure: Start date: 09/21/24 Status: Acute Assessment and plan: This is a 49-year-old lady who has a history of seizures at least for the last 3 years on treatment over the last year now with adjustment of treatment on high-dose Lamictal and off Keppra having an episode which is more encephalopathic than like her typical seizures but she was slightly confused and possibly postictal during my exam. Teleneurology recommended [place] which [place] need [place] [facility] [place] and EEG which was normal in July but may be repeated. Differential diagnosis includes toxic epileptic encephalopathy which was transient which is more likely and less likely infectious etiology or metabolic etiology. Also will do list is vascular and the patient will be remaining on aspirin but not given dual platelet therapy at this time. I will restart her Keppra since this seems to be 1 thing that was recently changed and could be causing her symptoms. With her significant psychiatric disease conversion disorder also need to be considered. Will review her complex psychiatric medication list for complex. She will be observed on telemetry on a baby aspirin with EEG if available and arrangement for follow-up MRI with [facility] and with her local neurologist earlier than scheduled. She is a full code. (2) Encephalopathy acute: Start date: 09/21/24 Status: Acute Assessment and plan: This most likely is associated with her seizures but she will continue baby aspirin with MRI as available, and repeat EEG and adjustment of her antiseizure medications restarting Keppra until seen by local neurology. (3) Pulmonary hypertension: Status: Chronic Assessment and plan: Continue outpatient medical therapy. (4) Cardiomyopathy: Status: Chronic Assessment and plan: Continue outpatient medical therapy and follow cardiology as scheduled. Qualifiers: Cardiomyopathy type: other Qualified Code(s): I42.8 - Other cardiomyopathies (5) Bipolar disorder: Status: Chronic Assessment and plan: Continue outpatient medical therapy which is complex and should be reviewed for safety with minimal adjustment only if needed. The patient does have significant PTSD with agoraphobia and her episode could also be a conversion disorder. She has had significant depression with suicide attempt in the past. Benzodiazepine will be avoided. Qualifiers: Active/Remission status: currently active Current bipolar episode type: depressed Current episode severity: moderate Qualified Code(s): F31.32 - Bipolar disorder, current episode depressed, moderate (6) Type 2 diabetes mellitus: Status: Chronic Assessment and plan: Not on insulin presently but will be placed on glucometer before meals and at bedtime with sensitive sliding scale coverage. 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 This will not be stopped but monitor closely. She has no new neurological deficits from spinal cord compression. Qualifiers: Back pain location: back pain in other location Qualified Code(s): M54.89 - Other dorsalgia; G89.29 - Other chronic pain (8) Chronic migraine: Assessment and plan: Patient has been on migraine headache treatment in the past and recently has had a continuous headache after a fall [place] a local water[place] with concussion. This may be contributing to her change in status with her seizures and transient encephalopathy. Further imaging and/or consider LP with CSF evaluation if needed. She does need an [place] [facility] [place] She has never had an MRI throughout her life with history of seizures and head injury as well as headaches according to the patient. This is made more difficult present because of her AICD. History of Present Illness History of Present Illness Chief Complaint: Sudden onset of inability to speak or move by being awake with incontinence Narrative: This is a 49-year-old female patient with a history of seizures recently uncontrolled which began with her first seizure about 3 years ago while she was shopping at which time she went to the emergency room and had evaluation with a CT of the head which was negative. She did not receive an MRI of the brain at that time and has had an AICD planted this year because of cardiomyopathy which makes obtaining MRI more difficult. She was not placed on medical therapy 3 years ago and had no problems until just recently after she had a fall coming [place] the [place] striking her head and being brought to this emergency room for evaluation with CT of the head and body injuries being negative for any acute processes. Since then she has had a headache but also has a history of chronic headaches on ablative therapy for migraines. She states that she had a concussion from the fall and late summer she had a seizure once again while shopping being brought to [facility] with negative imaging of her head at that time. She was initiated on Keppra and sent home with the patient returning to this emergency room in July with several seizures prompting hospitalization. Once again CT of the head imaging was negative. Plans were to arrange for follow[place] [facility] [place] and at that time she had weaned off her Keppra because of side effects and therefore was reinitiated on Keppra with a gradually increasing dose of Lamictal with weaning of Keppra since July. She had been on Lamictal for mood disorder with severe psychiatric disease including bipolar disorder with depression and suicide attempt with benzodiazepine overdose earlier this year and PTSD with agoraphobia had many situations which make her anxious. She states as a mother this has been difficult while raising her children and attending activities. She did have an ED visit early August at this institution for breakthrough seizure and her Keppra was adjusted she was asked to continue her conversion to a high dose Lamictal and off Keppra because of side effects. Her history is significant for diabetes and she was in her 20s when she was more obese having lost 50 pounds this year and on less treatment for this problem. She also had a cardiomyopathy since a young age but this progressed and was thought to be secondary to her at first but then was found to be genetic with her daughter also having a cardiomyopathy. She did have cardiac catheterization and evaluation with placement of AICD in the spring 2023. She has been on medical therapy for her cardiomyopathy since she was 35 years old. On the day of presentation the patient presented to her PCP with reported confusion with the patient stating that she could not talk to herself but could not speak and had problems moving. Did have incontinence of urine but no seizure-like activity and she never was completely unaware of her surroundings. She did not mention any shakes to me as she had to the teleneurologist and at the time I interviewed the patient she was improving but continued to have difficulty remembering but she was very vague as well which improved over the half hour to 1 hour that I spent interviewing her repeatedly. She was seen by teleneurology who thought that she may have had a transient encephalopathy more likely toxic epileptic/vascular and less likely metabolic/infectious. They did not recommend any new interventions with negative CTA of the head and neck and she will continue on her baby aspirin and maintenance dose of Lamictal. They also recommended MRI which cannot be done at this institution and EEG with had been done during her last hospitalization in July. Her echocardiogram has been done multiple times with follow-up of her cardiomyopathy [place] [facility] [place] They did recommend possible lumbar puncture for CSF evaluation if imaging and EEG were unrevealing. Once again MRI cannot be performed at this institution but EEG may be repeated. I decided to continue Keppra for now because of this being the one thing removed from her regimen with seems to control her seizure activity and she was incontinent with her episode with possible postictal state with her confusion. She did not completely lose consciousness by history. She does see local neurology and will follow-up with neurology on her multiple issues once evaluated and safe. She also is on a complex medical regimen for psychiatry and this will be reviewed by pharmacy for safety and possible drug interactions causing her episodes. The patient remains a full code and appears to have supportive family. Review of Systems Narrative: 13 point review of systems otherwise unrevealing or stable. The patient did not bite her tongue or have incontinence of stool. She also denies any tonic-clonic activity during her spell prior to presentation and this was not witnessed. She does remember most of the episode. [facility] All Active Problems (Updated 09/22/24 @ 07:57 by Nikhil Conner) Chronic back pain (Chronic) Encephalopathy acute (Acute) Brain TIA (Acute) Seizure (Acute) Contraindication to deep vein thrombosis (DVT) prophylaxis (Acute) Seizure (Acute) Intentional benzodiazepine overdose (Acute) Patellofemoral arthritis of left knee (Acute) Pulmonary hypertension (Chronic) Acute respiratory failure with hypoxia (Acute) Pulmonary edema (Acute) Acute respiratory distress (Acute) COVID-19 (Acute) Bilateral carpal tunnel syndrome (Acute) S/P R ECTR: 05/13/2022 Amplified musculoskeletal pain (Acute) Tendonitis of long head of biceps brachii of right shoulder (Acute) Bursitis of right shoulder (Acute) Traumatic tear of right rotator cuff (Acute) Calcific tendinitis of right shoulder (Acute) 40mg depo-medrol injection: 02/11/2022 Lateral epicondylitis of right elbow (Acute) 40mg depo-medrol injection: 02/11/2022 Hematest positive stools (Acute) Cardiomyopathy (Chronic) last echocardiogram 01/27/2019, LVEF 50-55%, no regional wall motion abnormalities, mild LVH, mild MR; normal RV size and function Bipolar disorder (Chronic) 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 (Acute 01/25/14) Atypical chest pain (Acute) Type 2 diabetes mellitus (Chronic) Palpitations (Acute) Spell of altered consciousness (Acute) Elevated brain natriuretic peptide (BNP) level (Acute) Chest pain (Acute) Screening for colon cancer (Acute) Tobacco use (Acute) Fecal occult blood test positive (Acute) Medical History Knee abrasion Myalgia Urinary incontinence Fatigue Shortness of breath Dizziness, nonspecific Orthostasis Elbow fracture, right Unresponsive episode Hyperthyroidism Carpal tunnel syndrome, left Impingement syndrome of left shoulder (~03/2019) Left rotator cuff tear (~03/2019) Tendinitis of long head of biceps brachii of left shoulder (~03/2019) Bursitis of left shoulder (~03/2019) Cervical radiculopathy bilateral Acute kidney injury DVT prophylaxis Discharge planning issues Dyspnea 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) Chronic migraine (03/07/15) Medication overuse headache (03/07/15) Migraine headache with aura (03/07/15) Migraine headache without aura (03/07/15) control (01/25/14) Dehydration Suicidal ideation Change in mental status Tachycardia Splenomegaly Lactose intolerance Hyperlipidemia Depression Anxiety Chronic pain syndrome CAD (coronary artery disease) mild non-obstructive disease per cardiac cath [place] [facility] [place], more recent repeat cath unchanged but with pulmonary HTN Morbid obesity Diabetes Polycystic ovaries Surgical History S/P hysterectomy History of arthroscopy of left shoulder Hx of cardiac catheterization 08/2021-no stent placed History of endometrial ablation History of section x2 Previous back surgery Social History Smoking/Tobacco Use Status: Former Tobacco Use Quit status: quit date established Smoking risk assessment performed?: Yes Alcohol Intake: never Drug use: Never Substance use type: does not use Housing: apartment Number of Children: 3 Current gender identity: female What is your relationship status?: Panel score (0-1 are the most socially isolated patients): 0 What type of physical activity do you participate in: none Do you feel safe at home: Yes Do you feel safe in your relationship?: Yes Female Reproductive History Menstrual control method: permanent sterilization Meds Allergies and Home Medications Allergies Allergy/AdvReac Type Severity Reaction Status Date / Time Penicillins Allergy Severe throat Verified 09/21/24 15:26 closes Sulfa (Sulfonamide Allergy Mild Hives Verified 09/21/24 15:26 Antibiotics) Home Medications ?Medication ?Instructions ?Recorded ?Confirmed ?Type levothyroxine 25 mcg tablet 50 mcg PO HS 03/05/17 09/21/24 History (Synthroid) albuterol sulfate 90 mcg/actuation 2 puff inhalation QID PRN 03/10/19 09/21/24 History aerosol inhaler (Ventolin HFA) naloxone 4 mg/actuation nasal 1 spray intranasal ONCE PRN 03/10/19 09/21/24 History spray (Narcan) omeprazole 20 mg capsule,delayed 20 mg PO DAILY 03/10/19 09/21/24 History release prochlorperazine maleate 10 mg 10 mg PO DAILY PRN Headache 03/10/19 09/21/24 History tablet aspirin 81 mg tablet,delayed 81 mg PO DAILY Prevent blood clot 09/30/19 09/21/24 Rx release #14 tabs polyethylene glycol 3350 17 17 g PO DAILY PRN 12/22/19 09/21/24 History gram/dose oral powder naratriptan 2.5 mg tablet 2.5 mg PO BID PRN 03/27/20 09/21/24 History estradiol 1 mg tablet See Rx Instructions .Route .COMPLEX 06/10/21 09/21/24 History cholecalciferol (vitamin D3) 50 50 mcg PO DAILY 11/21/21 09/21/24 History mcg (2,000 unit) capsule hydrocortisone 2.5 % topical cream 1 applic topical QID #30 grams 12/31/21 09/21/24 Rx acetaminophen 500 mg capsule 1,000 mg (2 x 500 mg) PO Q8H PRN 05/13/22 09/21/24 Rx PRN #30 caps clonazepam 1 mg tablet 1 mg PO BID PRN 11/14/22 09/21/24 History melatonin 10 mg tablet 10 mg PO HS PRN 11/14/22 09/21/24 History loratadine 10 mg capsule 10 mg PO DAILY 03/03/23 09/21/24 History cyanocobalamin (vitamin B-12) 1,000 mcg PO DAILY 08/13/23 09/21/24 History 1,000 mcg tablet dapagliflozin propanediol 5 mg 5 mg PO DAILY 08/13/23 09/21/24 History tablet (Farxiga) pregabalin 100 mg capsule 100 mg PO TID 08/13/23 09/21/24 History sacubitril 97 mg-valsartan 103 mg 1 tab PO BID 08/13/23 09/21/24 History tablet (Entresto) magnesium oxide 400 mg (241.3 mg 400 mg PO HS #0 tabs 08/17/23 09/21/24 Rx magnesium) tablet bupropion HCl 150 mg 24 hr tablet, 150 mg PO DAILY 01/07/24 09/21/24 History extended release mirabegron 25 mg tablet,extended 25 mg PO Q24H 08/05/24 09/21/24 History release 24 hr (Myrbetriq) vortioxetine 20 mg tablet 20 mg PO DAILY 08/05/24 09/21/24 History (Trintellix) bupropion HCl 300 mg 24 hr tablet, 300 mg PO DAILY 08/15/24 09/21/24 History extended release dulaglutide 3 mg/0.5 mL 3 mg subcut QWEEK 08/15/24 09/21/24 History subcutaneous pen injector (Trulicity) hydromorphone 4 mg tablet 4 mg PO BID 08/15/24 09/21/24 History lamotrigine 200 mg tablet 200 mg PO HS 08/15/24 09/21/24 History levothyroxine 50 mcg tablet 50 mcg PO DAILY 08/15/24 09/21/24 History metoprolol succinate 100 mg 100 mg PO DAILY 08/15/24 09/21/24 History tablet,extended release 24 hr naproxen 500 mg tablet 500 mg PO BID 08/15/24 09/21/24 History paroxetine HCl 40 mg tablet 40 mg PO DAILY 08/15/24 09/21/24 History riboflavin (vitamin B2) 100 mg 200 mg PO BID 08/15/24 09/21/24 History tablet (Vitamin B-2) rosuvastatin 10 mg tablet 10 mg PO HS 08/15/24 09/21/24 History lamotrigine 100 mg tablet 50 mg (1/2 x 100 mg) PO DAILY #4 08/16/24 09/21/24 Rx (Lamictal) tabs docusate sodium 100 mg capsule 100 mg PO DAILY #30 caps 08/17/24 09/21/24 Rx (Colace) hydroxyzine HCl 25 mg tablet 25 mg PO TID PRN 09/21/24 09/21/24 History Exam Narrative Exam Narrative: General: Patient appears appropriate for age, alert and oriented x 3 with slight confusion and wandering with her telling of history initially during the interview but after 1 hour was more clear at least about her historical events. She is moderately distressed with her episode. Fair eye contact but flattened affect. Patient is moderately obese. HEENT: Normocephalic, eyes with pupils equal and react to light symmetrically, extraocular movement intact and sclera anicteric. Good dentition. Neck: Supple without JVD. Back: Normal posture without CVA tenderness. Lungs: Clear to auscultation and percussion with no focalizing rales or rhonchi. No expiratory wheeze with patient being a smoker. Heart: Regular rate and rhythm with no murmurs gallops appreciated. Patient does have a palpable subcutaneous AICD over her left lower lateral chest. Breast: Exam deferred. Abdomen: Obese contour, soft and nontender to palpation with no palpable hepatosplenomegaly. Genitalia/rectal: Exam deferred. Extremities: Without clubbing, cyanosis or pitting edema. Peripheral pulses intact. Skin: Normal color, warm and dry. Neuro: Cranial nerves II to XII grossly intact, no focalizing motor deficits and no tremor. Tone is normal without clonus. Babinski absent. He just has not gone symmetrical. Psych: Flattened affect with slow monotonous tone to voice. No abnormal thought processes. Remote and recent memory grossly intact the patient has difficulty remembering timeline of her story. Results Imaging Imaging Studies: EXAM: CT BRAIN NECK CTA zz CLINICAL HISTORY: Acute encephalopathy. TECHNIQUE: Imaging Protocol: Axial CT angiography was performed with multi-slice acquisition and multi-planar and/or 3D reconstructions. CONTRAST MATERIAL: Intravenous: Omnipaque 350 Contrast volume:70 cc COMPARISON: CT CT HEAD WO from 08/29/2024 FINDINGS: CTA Neck W: Aortic arch anatomy: The aortic arch anatomy is conventional and there is no significant stenosis at the origin of the great vessels off of the aortic arch. No intimal flap evident. Anterior circulation: Both common carotid arteries ascend with normal luminal diameters. At the level the carotid bulbs and proximal internal carotid arteries there is minimal plaque without hemodynamically significant stenosis evident. Posterior circulation: Both vertebral arteries originate in conventional fashion off of the subclavian arteries and there is no obvious stenosis at the origin of the vertebral arteries. Both vertebral arteries exhibit normal luminal diameters within the foramen transversarium. Left vertebral artery is dominant. No intraluminal thrombus nor dissection of the vertebral arteries. Both vertebral arteries contribute to the formation of the basilar artery at the skull base. CTA Brain W: Anterior circulation: Both internal carotid arteries are patent in the skull base-carotid canals as well as within the cavernous sinuses. The supraclinoid aspects of the ICAs are patent. Both A1 segments are patent as are the anterior cerebral arteries and there is no evidence of aneurysm at the level of the anterior communicating artery. Both middle cerebral arteries are patent with no evidence of significant stenosis nor intraluminal thrombus. There also no aneurysms of these vessels. Posterior circulation: The basilar artery ascends in the midline. Distally it gives off patent bilateral superior cerebellar arteries. Above this level the basilar artery terminates as patent left posterior cerebral artery. The right P1 segment is developmentally thin as the right posterior cerebral artery is predominantly fed by a posterior communicating artery on the right side of the [id number]. The right AR[employer]ELOPER is patent There is no evidence of aneurysm at the tip of the basilar artery nor elsewhere in the [id number]. CT BRAIN: There is no evidence of intracranial hemorrhage, mass effect, or shift of midline structures. There are no extra-axial fluid collections. Ventricles are not enlarged or shifted. There are no ring enhancing lesions in the brain and no abnormal meningeal enhancement. IMPRESSION: 1. Patent carotid arteries in the neck. No hemodynamically significant stenosis. 2. Patent vertebral arteries. 3. Patent intracranial arteries. 4. There are no ring enhancing lesions in brain and there is no abnormal meningeal enhancement. No intracranial hemorrhage. EXAM: XR PORTABLE CHEST AP CLINICAL HISTORY: Acute encephalopathy TECHNIQUE: 2D digital imaging was performed. COMPARISON: CR XR CHEST 2V PA LATERAL from 03/18/[address] CHEST/ABD/PEL W from 07/05/2024 FINDINGS: LUNGS: Clear. No pleural abnormality seen. HEART: Normal size. AORTA: Normal diameter. BONES: Unremarkable for age. Soft tissues: Battery pack left lateral lower chest wall with lead extending superiorly overlying the midline of the chest. IMPRESSION: No acute findings. Labs 09/22/24 05:28 09/21/24 14:15 Labs: Laboratory Results - last 24 hr 09/21/24 09/21/24 09/21/24 14:15 15:47 17:47 WBC 6.72 RBC 5.28 H Hgb 15.9 H Hct 47.6 H MCV 90 MCH 30.1 MCHC 33.4 RDW 12.4 Plt Count 241 MPV 9.5 Immature Gran % 0.1 Neutrophils % 37.4 Lymphocytes % 53.4 Monocytes % 6.5 Eosinophils % 1.9 Basophils % 0.7 Nucleated RBC % 0.0 Absolute Neutrophils 2.50 Absolute Lymphocytes 3.59 H Absolute Monocytes 0.44 Absolute Eosinophils 0.13 Absolute Basophils 0.05 Sodium 140 Potassium 4.2 Chloride 102 Carbon Dioxide 29.4 Anion Gap 8.6 BUN 15 Creatinine 0.9 Est GFR (CKD-EPI 2020) 78.37 Glucose 90 Calcium 9.7 Magnesium 2.2 Total Bilirubin 0.55 AST 20 ALT 32 Alkaline Phosphatase 52 Troponin I < 4 Cancelled Cancelled Total Protein 7.4 Albumin 4.1 TSH 1.46 Serum HCG, Qual Negative Salicylates < 2.8 Acetaminophen < 2 Ethyl Alcohol < 3.0 Last Vital Signs Temp 36.5 C 09/21/24 15:21 Pulse 82 09/21/24 16:45 Resp 18 09/21/24 16:45 BP 100/62 09/21/24 16:45 Pulse Ox 96 09/21/24 16:45 Time Spent Time spent with Patient: >75 minutes Time was spent: preparing to see the patient(eg.review tests), obtaining and/or reviewing separately otained hiistory, ordering medications,tests, procedures, referring, communicating with other health child care leader, indepentently interpreting results, counseling the patient and care coordination
[2024-09-21 18:49] LABS: Bilirubin Negative (Negative); Blood Negative (Negative); Clarity Clear (Clear); Glucose 500 mg/dL (Negative); Ketones 40 mg/dL (Negative); Leukocyte Esterase Negative (Negative); Nitrite Negative (Negative); Specific Gravity 1.015 (1.005-1.025); Urobilinogen 0.2 mg/dL (Up to 0.2); pH 7.5 (5-8)
--- NOTE | 2024-09-21 20:29 | W.PC.ACHO ---
Registration Status: Primary Language: Preferred Language: ED Information & Data Chief Complaint CVA/TIA 09/21/24 15:26 Chief Complaint CVA/TIA 09/21/24 15:21 Triage Note pateint says she felt 09/21/24 15:21 tingle all over, yelling out, has slowed speech and slow to answer questions, repeating children's names and yelling about not waking to today Medical / Surgical History (Last Reviewed 08/28/24 @ 23:44 by Edin Taylor DO) Knee abrasion Myalgia Urinary incontinence Fatigue Shortness of breath Dizziness, nonspecific Orthostasis Elbow fracture, right Unresponsive episode Hyperthyroidism Carpal tunnel syndrome, left Impingement syndrome of left shoulder (~03/2019) Left rotator cuff tear (~03/2019) Tendinitis of long head of biceps brachii of left shoulder (~03/2019) Bursitis of left shoulder (~03/2019) Cervical radiculopathy Acute kidney injury DVT prophylaxis Discharge planning issues Dyspnea 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) Chronic migraine (03/07/15) Medication overuse headache (03/07/15) Migraine headache with aura (03/07/15) Migraine headache without aura (03/07/15) control (01/25/14) Dehydration Suicidal ideation Change in mental status Tachycardia Splenomegaly Lactose intolerance Hyperlipidemia Depression Anxiety Chronic pain syndrome CAD (coronary artery disease) Morbid obesity Diabetes Polycystic ovaries (Last Reviewed 08/28/24 @ 23:44 by Edin Taylor DO) S/P hysterectomy History of arthroscopy of left shoulder Hx of cardiac catheterization History of endometrial ablation History of section Previous back surgery Most Recent Vital Signs Temperature 36.5 C 09/21/24 15:21 Pulse 82 09/21/24 16:45 Pulse 85 09/21/24 16:45 Respiratory Rate 18 09/21/24 16:45 Respiratory Effort Normal, Non-Labored 09/21/24 15:53 Blood Pressure 100/62 09/21/24 16:45 Blood Pressure Mean 74 09/21/24 16:45 Pulse Oximetry 96 09/21/24 16:45 Oxygen Delivery Method Room Air 09/21/24 15:21 Oxygen Flow Rate 0 09/21/24 15:21 Allergies Penicillins Allergy (Severe, Verified 09/21/24 15:26) throat closes Sulfa (Sulfonamide Antibiotics) Allergy (Mild, Verified 09/21/24 15:26) Hives Active Medications Generic Name Dose Route Start Last Admin Trade Name Nancy PRN Reason Stop Dose Admin Sodium Chloride 50 ml 09/21/24 15:15 09/21/24 15:07 Normal Saline - Diluent 50 Ml Vial IJ 50 ml .FOR DI USE URSULA Administration Sodium Chloride 50 ml 09/21/24 15:30 09/21/24 15:25 Normal Saline - Diluent 50 Ml Vial IJ 50 ml .FOR DI USE URSULA Administration IV IV Catheter Type [Right Saline Lock Antecubital] IV Catheter Gauge [Right 18 Antecubital] Diagnostics 09/21/24 09/21/24 09/21/24 Range/Units 19:42 18:45 17:47 WBC (4.4-10.8) 10^3/uL RBC (3.93-5.22) 10^6/uL Hgb (11.2-15.7) g/dL Hct (36.0-46.0) % MCV (80-95) fL MCH (27.0-33.0) pg MCHC (32.0-36.0) % RDW (11.7-14.6) % Plt Count (130-400) 10^3/uL MPV (8.0-11.0) fL Immature Gran % % Neutrophils % % Lymphocytes % % Monocytes % % Eosinophils % % Basophils % % Nucleated RBC % (0.0-0.3) % Absolute Neutrophils (1.2-6.7) 10^3/uL Absolute Lymphocytes (1.2-3.4) 10^3/uL Absolute Monocytes (0.1-0.8) 10^3/uL Absolute Eosinophils (0.0-0.7) 10^3/uL Absolute Basophils (0.0-0.2) 10^3/uL Sodium (136-145) mmol/L Potassium (3.5-5.1) mmol/L Chloride (98-107) mmol/L Carbon Dioxide (21.0-32.0) mmol/L Anion Gap (3-11) mmol/L BUN (7-18) mg/dL Creatinine (0.55-1.02) mg/dL Est GFR (CKD-EPI 2020) (mL/min/1.73m2) Glucose (74-106) mg/dL Calcium (8.5-10.1) mg/dL Magnesium (1.8-2.4) mg/dL Total Bilirubin (0.2-1.0) mg/dL AST (15-37) U/L ALT (14-59) U/L Alkaline Phosphatase (46-116) U/L Troponin I Cancelled (<or=51) ng/L Total Protein (6.4-8.2) g/dL Albumin (3.4-5.0) g/dL TSH (0.36-3.74) uIU/mL Serum HCG, Qual Urine Color Yellow (Yellow) Urine Clarity Clear (Clear) Urine pH 7.5 (5-8) Ur Specific [place] 1.015 (1.005-1.025) Urine Protein Negative (Neg-Trace) mg/dL Urine Ketones 40 H (Negative) mg/dL Urine Blood Negative (Negative) Urine Nitrite Negative (Negative) Urine Bilirubin Negative (Negative) Urine Urobilinogen 0.2 (Up to 0.2) mg/dL Ur Leukocyte Esterase Negative (Negative) Urine Glucose 500 H (Negative) mg/dL Salicylates (<2.8) mg/dL Acetaminophen (10-30) ug/mL Ethyl Alcohol (<10) mg/dL COVID-19 Source Pending SARS-CoV-2 (PCR) Pending 09/21/24 09/21/24 Range/Units 15:47 14:15 WBC 6.72 (4.4-10.8) 10^3/uL RBC 5.28 H (3.93-5.22) 10^6/uL Hgb 15.9 H (11.2-15.7) g/dL Hct 47.6 H (36.0-46.0) % MCV 90 (80-95) fL MCH 30.1 (27.0-33.0) pg MCHC 33.4 (32.0-36.0) % RDW 12.4 (11.7-14.6) % Plt Count 241 (130-400) 10^3/uL MPV 9.5 (8.0-11.0) fL Immature Gran % 0.1 % Neutrophils % 37.4 % Lymphocytes % 53.4 % Monocytes % 6.5 % Eosinophils % 1.9 % Basophils % 0.7 % Nucleated RBC % 0.0 (0.0-0.3) % Absolute Neutrophils 2.50 (1.2-6.7) 10^3/uL Absolute Lymphocytes 3.59 H (1.2-3.4) 10^3/uL Absolute Monocytes 0.44 (0.1-0.8) 10^3/uL Absolute Eosinophils 0.13 (0.0-0.7) 10^3/uL Absolute Basophils 0.05 (0.0-0.2) 10^3/uL Sodium 140 (136-145) mmol/L Potassium 4.2 (3.5-5.1) mmol/L Chloride 102 (98-107) mmol/L Carbon Dioxide 29.4 (21.0-32.0) mmol/L Anion Gap 8.6 (3-11) mmol/L BUN 15 (7-18) mg/dL Creatinine 0.9 (0.55-1.02) mg/dL Est GFR (CKD-EPI 2020) 78.37 (mL/min/1.73m2) Glucose 90 (74-106) mg/dL Calcium 9.7 (8.5-10.1) mg/dL Magnesium 2.2 (1.8-2.4) mg/dL Total Bilirubin 0.55 (0.2-1.0) mg/dL AST 20 (15-37) U/L ALT 32 (14-59) U/L Alkaline Phosphatase 52 (46-116) U/L Troponin I Cancelled < 4 (<or=51) ng/L Total Protein 7.4 (6.4-8.2) g/dL Albumin 4.1 (3.4-5.0) g/dL TSH 1.46 (0.36-3.74) uIU/mL Serum HCG, Qual Negative Urine Color (Yellow) Urine Clarity (Clear) Urine pH (5-8) Ur Specific [place] (1.005-1.025) Urine Protein (Neg-Trace) mg/dL Urine Ketones (Negative) mg/dL Urine Blood (Negative) Urine Nitrite (Negative) Urine Bilirubin (Negative) Urine Urobilinogen (Up to 0.2) mg/dL Ur Leukocyte Esterase (Negative) Urine Glucose (Negative) mg/dL Salicylates < 2.8 (<2.8) mg/dL Acetaminophen < 2 (10-30) ug/mL Ethyl Alcohol < 3.0 (<10) mg/dL COVID-19 Source SARS-CoV-2 (PCR) Intake and Output - 24 Hour Total 09/21/24 14:36 thru 09/21/24 15:54 Intake Total 125 Balance 125 Weight 85.3 kg Intake: IV 125 Falls Risk Assessment History of Falls No History 09/21/24 15:53 Fall Total Score 0 09/21/24 15:53 Level of Risk Standard/Low Risk 09/21/24 15:53 Problems (Last Reviewed 08/28/24 @ 23:44 by Edin Taylor DO) Encephalopathy acute (Acute) Brain TIA (Acute) Seizure (Acute) Pulmonary hypertension (Chronic) Cardiomyopathy (Chronic) Bipolar disorder (Chronic) Type 2 diabetes mellitus (Chronic) Notes 09/21/24 15:40 Nursing Notes by Laverne Goodrich Nursing Note: patient told this RN that she did not sleep all n ight last night d/t taking care of her . She said this AM she took on of her husbands ritalin to stay awake today Initialized on 09/21/24 15:40 - END OF NOTE v v v v v v v v v Sending and/or Receiving Nurses: Please use comment section below to note any information pertinent to the patient hand-off not included above. Information / Comments: Report received from: Aydin PARKS
[2024-09-21] MEDS: Heparin 5,000 UNITS/ML VIAL 5000 UNITS SC (22:12)
[2024-09-21] MEDS: Normal Saline Flush 10 ML SYR IVP ×2 (22:12→22:15)
[2024-09-21] MEDS: Naproxen 500 MG TAB PO (22:13)
[2024-09-21] MEDS: Metoprolol 50 MG TAB PO (22:13)
[2024-09-21] MEDS: Acetaminophen 325 MG TAB PO (22:13)
[2024-09-21] MEDS: Rosuvastatin 10 MG TAB PO (22:13)
[2024-09-21] MEDS: Pregabalin 100 MG CAP PO (22:13)
[2024-09-21] MEDS: levETIRAcetam 500 MG TAB PO (22:14)
[2024-09-21] MEDS: Melatonin 3 MG TAB 9 MG PO (22:14)
[2024-09-21] MEDS: Magnesium Oxide 400 MG TAB PO (22:14)
[2024-09-21] MEDS: HYDROmorphone 4 MG TAB PO (22:14)
[2024-09-21 23:51] LABS: Source Nasal/Nares
[2024-09-22] VITALS (128 sets, daily range): BP systolic 77–97; BP diastolic 54–67; PULSE 64–85; RESP 10–34; TEMP 36.3–36.4; O2SAT 86–100
[2024-09-22 00:21] LABS: COVID-19 PCR Negative (Negative)
[2024-09-22] MEDS: Levothyroxine 50 MCG TAB PO (05:24)
[2024-09-22] MEDS: Heparin 5,000 UNITS/ML VIAL 5000 UNITS SC ×3 (05:25→22:22)
[2024-09-22 06:50] LABS: HCT 44.3 % (36.0-46.0); HGB 14.5 g/dL (11.2-15.7); MCH 30.1 pg (27.0-33.0); MCHC 32.7 % (32.0-36.0); MCV 92 fL (80-95); Platelet Count 196 10^3/uL (130-400); RBC 4.81 10^6/uL (3.93-5.22); RDW 12.7 % (11.7-14.6); WBC 5.68 10^3/uL (4.4-10.8)
[2024-09-22 08:09] LABS: ALT 26 U/L (14-59); AST 27 U/L (15-37); Albumin 3.2 g/dL (3.4-5.0); Alkaline Phosphatase 43 U/L (46-116); Anion Gap 12.2 mmol/L (3-11); BUN 15 mg/dL (7-18); Bilirubin, Total 0.48 mg/dL (0.2-1.0); CO2 25.8 mmol/L (21.0-32.0); CREATININE 0.8 mg/dL (0.55-1.02); Chloride 105 mmol/L (98-107); Estimated GFR 90.27 (mL/min/1.73m2); Glucose 87 mg/dL (74-106); Magnesium 2.2 mg/dL (1.8-2.4); Potassium 4.1 mmol/L (3.5-5.1); Sodium 143 mmol/L (136-145); Total Protein 6.2 g/dL (6.4-8.2)
[2024-09-22] MEDS: Normal Saline Flush 10 ML SYR IVP ×2 (08:24→19:59)
[2024-09-22] MEDS: Sacubitril/Valsartan 49 mg/51 mg TAB 2 EACH PO ×2 (08:25→19:52)
[2024-09-22] MEDS: lamoTRIgine 100 MG TAB 200 MG PO ×2 (08:26→19:54)
[2024-09-22] MEDS: Estradiol 1 MG TAB PO (08:27)
[2024-09-22] MEDS: buPROPion-XL 150 MG TABCR 450 MG PO (08:28)
[2024-09-22] MEDS: Aspirin E.C. 81 MG TABEC PO (08:29)
[2024-09-22] MEDS: Loratidine 10 MG TAB PO (08:29)
[2024-09-22] MEDS: levETIRAcetam 500 MG TAB PO ×2 (08:29→19:51)
[2024-09-22] MEDS: Cyanocobalamin 500 MCG TAB 1000 MCG PO (08:29)
[2024-09-22] MEDS: Pregabalin 100 MG CAP PO ×3 (08:29→19:52)
[2024-09-22] MEDS: Mirabegron 25 MG TABCR PO (08:29)
[2024-09-22] MEDS: HYDROmorphone 4 MG TAB PO ×2 (08:29→19:51)
[2024-09-22] MEDS: Naproxen 500 MG TAB PO ×2 (08:29→19:51)
[2024-09-22] MEDS: Omeprazole 20 MG CAPCR PO (08:29)
--- NOTE | 2024-09-22 09:04 | INITIAL_ITS ---
Date of service: 09/22/24 Time of Service: 09:04 Care Management Initial Assmt Initial Assessment Reason for Hospitalization: seizure disorder, acute encephalopathy Functional Status/Living Situation Patient Presentation: Jammie presented to her PCP office yesterday with c/p confusion and problems moving. No seizure-like activity as she has had in the past, but was incontinent of urine and just not right. She was sent to the ER, and admitted to the ICU. Jammie was lying in bed, with the HOB elevated, when CM met with her. She did not look like she felt well, and stated that she did not feel well. She had a headache coming on, she was dizzy, her vision was off, and she was having what she called hallucinations, but they were occurring when her eyes were closed. She stated she was seeing people in the room, but when she opened her eyes, they were not there. The lights were dim in the room. CM kept the interview short, as Jamime was feeling poorly. Town of Residence: [facility] Resides with: Child and Spouse (Lives with and youngest daughter) Significant Other/Family: Local (, a son and 2 daughters live locally.) Natural Supports: family Employment Status: Disabled Instrumental Activities of Daily Living (ADLs): Independent Activities/Hobbies/SocialSupport: likes to read Medications Medication Management: No Issues/Barriers identified Advance Directives Advance Directives: Do you have an Advance Directive: N 08/17/24 07:04 AD On File at [facility]: N 08/17/24 07:04 Date Asked 09/21/24 09/21/24 14:52 AD Date Reviewed COLST On File at [facility] No 08/17/24 07:04 COLST Date Scanned Code Status Resuscitation Status Full Code Portal Pt does not currently have a portal and education provided: Yes Insurance Coverage/Financial Issues Insurance: Medicare, medicaid Care Team Visit Care Team Role Provider Type Edie Ellis MD Primary Care Provider [facility] STAFF PHYSICIAN Yennifer Byrnes, SAFE TECHNICIAN Other Providers SPEECH LANGUAGE PATHOLOGIST Ben Vides, SAFE TECHNICIAN Other Providers SPEECH LANGUAGE PATHOLOGIST Ngoc Kruger Other Providers SPEECH LANGUAGE PATHOLOGIST Bridgette Barry, SAFE TECHNICIAN Other Providers SPEECH LANGUAGE PATHOLOGI ST Ambar Nolan, SAFE TECHNICIAN Other Providers SPEECH LANGUAGE PATHOLOGIST InPatient Reinaldo Bradshaw Other Providers OTHER Prudencio Sims MD Emergency Provider [facility] STAFF PHYSICIAN Nikhil Conner Admit Provider MD [facility] STAFF PHYSICIAN Attending Provider Other: Melvina Bond is psych provider. Dr. Denton is neurologist. Discharge Potential Discharge Needs: Imaging/labs (Teleneurology recommended MRI which will need to be performed [place] [facility] because of her AICD and EEG which was normal in July but may be repeated), PCP F/U Appt and Other (neuro) Anticipated Barriers to Discharge: None Identified Patient/Family Education Needs: Review discharge instructions, discuss Ask Me Three Transportation: Private vehicle (Jammie believes she can get a ride, but her can't drive right now.) Plan: Anticipate that Jammie will be discharged home with no new services once medically cleared. She will transport home in a private vehicle with either her family or via [facility]. She will f/u with her PCP and neurologist. PFSH All Active Problems (Updated 09/22/24 @ 07:57 by Nikhil Conner) Chronic back pain (Chronic) Encephalopathy acute (Acute) Brain TIA (Acute) Seizure (Acute) Contraindication to deep vein thrombosis (DVT) prophylaxis (Acute) Seizure (Acute) Intentional benzodiazepine overdose (Acute) Patellofemoral arthritis of left knee (Acute) Pulmonary hypertension (Chronic) Acute respiratory failure with hypoxia (Acute) Pulmonary edema (Acute) Acute respiratory distress (Acute) COVID-19 (Acute) Bilateral carpal tunnel syndrome (Acute) S/P R ECTR: 05/13/2022 Amplified musculoskeletal pain (Acute) Tendonitis of long head of biceps brachii of right shoulder (Acute) Bursitis of right shoulder (Acute) Traumatic tear of right rotator cuff (Acute) Calcific tendinitis of right shoulder (Acute) 40mg depo-medrol injection: 02/11/2022 Lateral epicondylitis of right elbow (Acute) 40mg depo-medrol injection: 02/11/2022 Hematest positive stools (Acute) Cardiomyopathy (Chronic) last echocardiogram 01/27/2019, LVEF 50-55%, no regional wall motion abnormalities, mild LVH, mild MR; normal RV size and function Bipolar disorder (Chronic) 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 (Acute 01/25/14) Atypical chest pain (Acute) Type 2 diabetes mellitus (Chronic) Palpitations (Acute) Spell of altered consciousness (Acute) Elevated brain natriuretic peptide (BNP) level (Acute) Chest pain (Acute) Screening for colon cancer (Acute) Tobacco use (Acute) Fecal occult blood test positive (Acute) Medical History Knee abrasion Myalgia Urinary incontinence Fatigue Shortness of breath Dizziness, nonspecific Orthostasis Elbow fracture, right Unresponsive episode Hyperthyroidism Carpal tunnel syndrome, left Impingement syndrome of left shoulder (~03/2019) Left rotator cuff tear (~03/2019) Tendinitis of long head of biceps brachii of left shoulder (~03/2019) Bursitis of left shoulder (~03/2019) Cervical radiculopathy bilateral Acute kidney injury DVT prophylaxis Discharge planning issues Dyspnea 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) Chronic migraine (03/07/15) Medication overuse headache (03/07/15) Migraine headache with aura (03/07/15) Migraine headache without aura (03/07/15) control (01/25/14) Dehydration Suicidal ideation Change in mental status Tachycardia Splenomegaly Lactose intolerance Hyperlipidemia Depression Anxiety Chronic pain syndrome CAD (coronary artery disease) mild non-obstructive disease per cardiac cath report from [facility] 09/07/2013, more recent repeat cath unchanged but with pulmonary HTN Morbid obesity Diabetes Polycystic ovaries Surgical History S/P hysterectomy History of arthroscopy of left shoulder Hx of cardiac catheterization 08/2021-no stent placed History of endometrial ablation History of section x2 Previous back surgery Social History Smoking/Tobacco Use Status: Former Tobacco Use Quit status: quit date established Smoking risk assessment performed?: Yes Alcohol Intake: never Drug use: Never Substance use type: does not use Housing: apartment Number of Children: 3 Current gender identity: female What is your relationship status?: Panel score (0-1 are the most socially isolated patients): 0 What type of physical activity do you participate in: none Do you feel safe at home: Yes Do you feel safe in your relationship?: Yes Female Reproductive History Menstrual control method: permanent sterilization Readmission Within the Past 30 Days Yes or No: No SDOH(Care Management) Screening Will the Patient Participate in the Screening?: Declined to provide Health Related Social Needs Health related social needs: transportation insecurity(Z59.82) (reported that she can not drive due to her seizures, and her can't drive because he has knee problems.)
--- NOTE | 2024-09-22 09:56 | SP_ITS ---
Date of service: 09/22/24 Time of Service: 08:20 Subjective Cognitive-Communication Evaluation Speech Language Pathology Referred by: Nikhil Conner Referral Type: Cognitive/Communication Evaluation Reason for Referral/HPI: Jammie Gottlieb is a 49 yo female with PMH significant for bipolar disorder, hx seizures, DM admitted to [facility] with confusion and difficulty with word finding for workup for CVA vs encephalopathy. REPAIRER ENGINE PRODUCTION referral placed for cognitive-communication, limited communication. REPAIRER ENGINE PRODUCTION IMPRESSIONS & RECOMMENDATIONS: Jammie presents as alert, oriented x5, and conversant. She acknowledges baseline difficulty with word retrieval and memory which have been ongoing for ~1 year. She feels her confusion from yesterday has mostly resolved to baseline, but is still identifying vision changes (blurred, double vision) which is new this admission. She was seen today for a cognitive- communication evaluation. Speech is precise and clear, with intermittent (occurring 1-2x) mild delay in word retrieval noted in conversation. Jammie achieved a score of 28/30 on the [place] Cognitive Assessment (WNL=26+) and a score of 13/15 on the [place] Naming Test. She does demonstrate mild challenges with word retrieval and attention in testing, though no concerns for safe discharge home. Jammie may benefit from outpatient REPAIRER ENGINE PRODUCTION services for metacognitive strategy training. She is following up with neurology/Dr Eason next month and will discuss this referral at that time. FURTHER REPAIRER ENGINE PRODUCTION SERVICES: No further acute REPAIRER ENGINE PRODUCTION services indicated. Consider referral for REPAIRER ENGINE PRODUCTION outpatient services pending neurology workup. Diet Recommendations: Regular/Thin No dysphagia complaints/concerns. Patient finishing breakfast tray during REPAIRER ENGINE PRODUCTION evaluation. SUBJECTIVE: Patient received alert/awake, agreeable to evaluation Pain Reported? None OBJECTIVE: MOCA 8.1 Score [place] Making 1/1 Cube Copying 0/1 Clock Drawing 3/3 Naming 3/3 Digit Recall 2/2 Letter Tapping 1/1 Serial 7 Subtraction 2/3 Sentence Repetition 2/2 Word fluency 0/1 Abstraction 1/2 Delayed Recall 5/5 Orientation 6/6 Memory Index Score 15/15 MOCA Total Score 28/30 [place] Naming Test Short Form =13/15 + 2 with phonemic cues ASSESSMENT: Further acute REPAIRER ENGINE PRODUCTION Services not indicated Recommendation at Discharge: Consider outpatient REPAIRER ENGINE PRODUCTION services pending neuro work up Suggested Referrals: N/A Recommended Procedures: N/A Education Provided to: Patient Topics Addressed: REPAIRER ENGINE PRODUCTION role, REPAIRER ENGINE PRODUCTION findings, recommendations PLAN:Eval only REPAIRER ENGINE PRODUCTION CPT Code: 19624?Evaluation of speech sound production with evaluation of language comprehension and expression TOTAL TIME: 30 Minutes 820-850AM
--- NOTE | 2024-09-22 09:56 | W.SPSTE ---
Date of service: 09/22/24 Time of Service: 08:20 Subjective Cognitive-Communication Evaluation Speech Language Pathology Referred by: Nikhil Conner Referral Type: Cognitive/Communication Evaluation Reason for Referral/HPI: Jammie Gottlieb is a 49 yo female with PMH significant for bipolar disorder, hx seizures, DM admitted to [facility] with confusion and difficulty with word finding for workup for CVA vs encephalopathy. CASE SPECIALIST referral placed for cognitive-communication, limited communication. CASE SPECIALIST IMPRESSIONS & RECOMMENDATIONS: Jammie presents as alert, oriented x5, and conversant. She acknowledges baseline difficulty with word retrieval and memory which have been ongoing for ~1 year. She feels her confusion from yesterday has mostly resolved to baseline, but is still identifying vision changes (blurred, double vision) which is new this admission. She was seen today for a cognitive-communication evaluation. Speech is precise and clear, with intermittent (occurring 1-2x) mild delay in word retrieval noted in conversation. Jammie achieved a score of 28/30 on the [place] Cognitive Assessment (WNL=26+) and a score of 13/15 on the [place] Naming Test. She does demonstrate mild challenges with word retrieval and attention in testing, though no concerns for safe discharge home. Jammie may benefit from outpatient CASE SPECIALIST services for metacognitive strategy training. She is following up with neurology/Dr Eason next month and will discuss this referral at that time. FURTHER CASE SPECIALIST SERVICES: No further acute CASE SPECIALIST services indicated. Consider referral for CASE SPECIALIST outpatient services pending neurology workup. Diet Recommendations: Regular/Thin No dysphagia complaints/concerns. Patient finishing breakfast tray during CASE SPECIALIST evaluation. SUBJECTIVE: Patient received alert/awake, agreeable to evaluation Pain Reported? None OBJECTIVE: MOCA 8.1 Score [place] Making 1/1 Cube Copying 0/1 Clock Drawing 3/3 Naming 3/3 Digit Recall 2/2 Letter Tapping 1/1 Serial 7 Subtraction 2/3 Sentence Repetition 2/2 Word fluency 0/1 Abstraction 1/2 Delayed Recall 5/5 Orientation 6/6 Memory Index Score 15/15 MOCA Total Score 28/30 [place] Naming Test Short Form =13/15 + 2 with phonemic cues ASSESSMENT: Further acute CASE SPECIALIST Services not indicated Recommendation at Discharge: Consider outpatient CASE SPECIALIST services pending neuro work up Suggested Referrals: N/A Recommended Procedures: N/A Education Provided to: Patient Topics Addressed: CASE SPECIALIST role, CASE SPECIALIST findings, recommendations PLAN:Eval only CASE SPECIALIST CPT Code: 67428?Evaluation of speech sound production with evaluation of language comprehension and expression TOTAL TIME: 30 Minutes 820-850AM
--- NOTE | 2024-09-22 10:09 | TELEP.MEDREC ---
Date of service: 09/22/24 Time of Service: 10:09 Telepharmacy Home Med Rec Allergies Allergies: Penicillins Allergy (Severe, Verified 09/21/24 15:26) throat closes Sulfa (Sulfonamide Antibiotics) Allergy (Mild, Verified 09/21/24 15:26) Hives Interview Person Interviewed: Patient Quality Quality of Interview/Accuracy of Medication List: Good Sources Sources used to compile medication list: Patient List and SureScripts Changes made to Home Medication List: ADDITIONS: L-Carnitine 1000mg daily Levetiracetam 750mg BID DELETIONS: Carbamazepine Metformin CHANGES: Clonazepam to 0.5mg BID PRN Docusate to PRN Lamotrigine to 200mg BID Levothyroxine to 25mcg daily Magnesium Oxide to 400 AM, 800mg PM Naproxen to PRN Recommended Changes Attestation: The home medication list is now updated to the best of my knowledge and is ready to be reconciled by the provider. Please contact the TelePharmacy Medication Reconciliation Pharmacist at for any questions.
--- NOTE | 2024-09-22 10:48 | PT.INIE ---
PT Notes Visit Reasons: Seizure Disorder, Transient Encephalopathy Inpatient Physical Therapy Evaluation Date: 09/22/2024 Referring Doctor: Nikhil Conner MD PT Orders: PT CONSULT: Exacerbation Chronic Cond Precautions: Seizure precautions in place. Fall risk. Activity as tolerated. Patient Profile/Admitting Diagnosis: Jammie was previously seen for PT services from 08/16/2024 through 08/17/2024 discharged at independent level for all bed mobility and transfers as well as supervision for level surface ambulation of up to 200 feet using front-wheeled walker. Patient is a 49-year-old female with a past medical history significant for bipolar disorder, previous back surgeries, seizures (on Lamictal and Keppra), pulmonary hypertension, past intentional benzodiazepine overdose, CAD, diabetes who presented to the ED for evaluation of recurrent seizures. Patient was admitted to observation in [facility] for seizures, encephalopathy, pulmonary hypertension, cadiomyopathy, type II DM, cchronicn back pain, ans chroninc migraine. PMHX: All Active Problems (Updated 09/22/24 @ 07:57 by Nikhil Conner) Chronic back pain (Chronic) Encephalopathy acute (Acute) Brain TIA (Acute) Seizure (Acute) Contraindication to deep vein thrombosis (DVT) prophylaxis (Acute) Seizure (Acute) Intentional benzodiazepine overdose (Acute) Patellofemoral arthritis of left knee (Acute) Pulmonary hypertension (Chronic) Acute respiratory failure with hypoxia (Acute) Pulmonary edema (Acute) Acute respiratory distress (Acute) COVID-19 (Acute) Bilateral carpal tunnel syndrome (Acute) S/P R ECTR: 05/13/2022 Amplified musculoskeletal pain (Acute) Tendonitis of long head of biceps brachii of right shoulder (Acute) Bursitis of right shoulder (Acute) Traumatic tear of right rotator cuff (Acute) Calcific tendinitis of right shoulder (Acute) 40mg depo-medrol injection: 02/11/2022 Lateral epicondylitis of right elbow (Acute) 40mg depo-medrol injection: 02/11/2022 Hematest positive stools (Acute) Cardiomyopathy (Chronic) last echocardiogram 01/27/2019, LVEF 50-55%, no regional wall motion abnormalities, mild LVH, mild MR; normal RV size and function Bipolar disorder (Chronic) 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 (Acute 01/25/14) Atypical chest pain (Acute) Type 2 diabetes mellitus (Chronic) Palpitations (Acute) Spell of altered consciousness (Acute) Elevated brain natriuretic peptide (BNP) level (Acute) Chest pain (Acute) Screening for colon cancer (Acute) Tobacco use (Acute) Fecal occult blood test positive (Acute) Medical History Knee abrasion Myalgia Urinary incontinence Fatigue Shortness of breath Dizziness, nonspecific Orthostasis Elbow fracture, right Unresponsive episode Hyperthyroidism Carpal tunnel syndrome, left Impingement syndrome of left shoulder (~03/2019) Left rotator cuff tear (~03/2019) Tendinitis of long head of biceps brachii of left shoulder (~03/2019) Bursitis of left shoulder (~03/2019) Cervical radiculopathy bilateral Acute kidney injury DVT prophylaxis Discharge planning issues Dyspnea 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) Chronic migraine (03/07/15) Medication overuse headache (03/07/15) Migraine headache with aura (03/07/15) Migraine headache without aura (03/07/15) control (01/25/14) Dehydration Suicidal ideation Change in mental status Tachycardia Splenomegaly Lactose intolerance Hyperlipidemia Depression Anxiety Chronic pain syndrome CAD (coronary artery disease) mild non-obstructive disease per cardiac cath report from [facility] 09/07/2013, more recent repeat cath unchanged but with pulmonary HTN Morbid obesity Diabetes Polycystic ovaries Surgical History S/P hysterectomy History of arthroscopy of left shoulder Hx of cardiac catheterization 08/2021-no stent placed History of endometrial ablation History of section x2 Previous back surgery Anxiety Chronic pain syndrome CAD (coronary artery disease) mild non-obstructive disease per cardiac cath report from [facility] 09/07/2013, more recent repeat cath unchanged but with pulmonary HTN Morbid obesity Diabetes Polycystic ovaries Surgical History S/P hysterectomy History of arthroscopy of left shoulder Hx of cardiac catheterization 08/2021-no stent placed History of endometrial ablation History of section x2 Previous back surgery Social History/Home Situation: Patient resides with and 14-year-old daughter in a two-story apartment with 14 steps to enter with 2 rails and 14 steps with 1 rail on the right to her bedroom and only bathroom. She reports she frequently uses a front wheel walker for ambulation due to chronic back pain. She reports she does not work and is on disability. She is reports she spends most of her time on the second floor although did state she does a lot of walking Equipment Owned/DME: [employer] Subjective: Denies headache, chest pain, and lightheadedness. Was almost intermediate through the book when PT came in but no report of visual issues she had yesetrday. Later on in the patient interview before PT could ask if patient was willing to do a short in-rrom walk, she verbalized that the fogginess, the visual instability and her lvel of twitchiness was getting worse. Nurse was called and symptoms were reported. Nurse Joseline recommended assisting patient to bed so she could be safest should another episode recur. Objective: General Observation: Patient seated in chair reading a book when approached by PT. telemetry monitoring in place. Mental Status: Alert and oriented x 3 Pain: None reported Vital Signs: Soft BP at 88/57 mmHg and then about 5 mnutes after went up to 91/67 mmHg ROM: Right Upper Extremity: Shoulder Flexion WFL. Shoulder abduction WFL. Elbow flexion WFL. Wrist flexion WFL. Functional opening and closing of hand WFL. Left Upper Extremity: Shoulder Flexion WFL. Shoulder abduction WFL. Elbow flexion WFL. Wrist flexion WFL. Functional opening and closing of hand WFL. Right Lower Extremity: Hip flexion WFL. Hip abduction WFL. Knee flexion WFL. Ankle dorsiflexion WFL. Ankle plantarflexion WFL. Left Lower Extremity: Hip flexion WFL. Hip abduction WFL. Knee flexion WFL. Ankle dorsiflexion WFL. Ankle plantarflexion WFL. Strength: Right Upper Extremity: Shoulder flexors 4/5. Shoulder abductors 4/5. Elbow flexors 5/5. Elbow extensors 5/5. Learning Disabilities Resource Teacher strong. Left Upper Extremity: Shoulder flexors 4/5. Shoulder abductors 4/5. Elbow flexors 5/5. Elbow extensors 5/5. Learning Disabilities Resource Teacher strong. Right Lower Extremity: Hip flexors 4-/5. Hip abductors 4-/5. Knee flexors 4-/5. Knee extensors 4-/5. Ankle dorsiflexors 5/5. Ankle plantarflexors 5/5. Left Lower Extremity: Hip flexors 4-/5. Hip abductors 4-/5. Knee flexors 4-/5. Knee extensors 4-/5. Ankle dorsiflexors 5/5. Ankle plantarflexors 5/5. Sensation: Intact as to pain and light pressure in B Ue and LEs Bed Mobility/Transfers: Minimal cueing provided for use of B hands as needed for support, movement sequence, AD management, and posture to reduce fall risk and minimize pain report Sit to stand contact guard assist of PT and Nurse Joseline Stand to sit contact guard assist of PT and Nurse Joseline Chair to bed contact guard assist of PT and Nurse Joseline Sit to supine minimal assist of 2 with pain report in low back with initial resumption of supine but resolved with adjustment of HOB height Gait: 6 steps from bedside chair to edge of bed with contact guard assit of PT and Nurse Joseline for safety as patient verbalized prodromal symptoms to a seizure episode. Stairs: Not tested Balance: Static Sitting: Normal Dynamic Sitting: Good Static Standing: Fair Dynamic Standing: Fair Special Tests: Mobility Limitations Standardized Measure [facility] 6 clicks Basic Mobility Inpatient Short Form: Raw Score: 19 CMS Score: 42% deficit Informed Consent/Education: Patient instructed in purpose of PT consult and plan of care. Assessment: Mobility assessment limited by patient's prodromal symptoms of a seizure episode. She was instead assisted back onto the bed for safety as recommended by Nurse Trevizo. Patient needed minimal assist fro transfers and ambulation just for safety. Will continue to reassess mobility level as she fully restabilizes. Patient presents with clinical signs and symptoms consistent with admitting diagnosis, that resulted in mobility limitations, gait instability, generalized weakness and overall ADL decline as demonstrated by the following impairment level findings: 1. Decreased strength to bilateral upper and lower extremity major muscle groups right greater than left 2. Impaired sitting and standing balance 3. Impaired activity tolerance Impairments are contributing to the following functional limitations: 1. AMPA score of 42% disability 2. Decline in transfer skills 3. Difficulty with ambulation without assistive device and physical assistance 4. Increased risk for falls 5. Increased time to complete mobility and ADL performance 6. Difficulty with managing steps alone safely on Patient is assessed as a 83156 moderate complexity based on the following: History: 49-year-old female with past medical history as indicated above Examination: Demonstrates impairments in strength, balance, & functional mobility level with underlying impairments and functional limitations as demonstrated above Presentation: Evolving Decision Makin moderate complexity Goals: Goals X1 week 1. Sit-Stand independent 2. Stand-Sit independent 3. Bed-Chair independent 4. Chair-Bed independent 5. Gait: Independent with ambulattion with FWW vs SPC greater for 150 feet 6. Stairs: Perform 12 steps with rail independent to enter and exit home safely 7. Independent with home exercise program 8. Improve balance to allow for supervised functional mobility Plan of Care/Treatment Plan: 1-2x/day, 7 days/week x 1 week. Initiate Physical Therapy intervention for strengthening, bed mobility, transfers, gait, stairs, balance training, use of assistive device. DISCHARGE RECOMMENDATIONS: [] Home with no services [] [] Home with services [] Home with outpatient PT [] [] SNF for continued rehabilitation [] [] Jail Care [] [] SNF versus LTC based on ability to participate and progress [] [X] PT vs No Services based on progress towards goals TREATMENT CODE/TIME: 95906 x 203minutes for 1 unit (10:48-11:11). Thank you for the opportunity to participate in the care of this patient. Ani Ragsdale PT, DPT, CLT [facility] [place], [place]
[2024-09-22] MEDS: PARoxetine 20 MG TAB 40 MG PO (16:07)
--- NOTE | 2024-09-22 18:39 | PGE_ITS ---
Date of Service Date of service: 09/22/24 Time of Service: 18:43 Assessment and Plan Assessment and plan (1) Seizure: Start date: 09/21/24 Status: Acute Assessment and plan: This is a 49-year-old lady who has a history of seizures at least for the last 3 years on treatment over the last year now with adjustment of treatment on high- dose Lamictal and off Keppra having an episode which is more encephalopathic than like her typical seizures but she was slightly confused and possibly postictal during my initial exam. Teleneurology recommended MRI which will need to be performed at [facility] because of her AICD and EEG which was normal in July but may be repeated as available. Differential diagnosis includes toxic epileptic encephalopathy which was transient which is more likely and less likely infectious etiology or metabolic etiology. Her high-dose psychiatric medications are most likely the culprit for lowering her seizure threshold and her change in mental status recently. This is not appear to be a focalizing vascular event but the patient will remain on aspirin and not be given dual platelet therapy at this time. I restarted her Keppra as a precaution since this was only recently stopped with possible recurrence of seizures. With her significant psychiatric disease conversion disorder also needs to be considered. Pharmacy is reviewing her complex psychiatric medical regimen and we are modifying slightly but that should be reviewed by her primary care physician and psychiatry as an outpatient. She is a full code. (2) Encephalopathy acute: Start date: 09/21/24 Status: Acute Assessment and plan: This most likely is associated with her seizures but she will continue baby aspirin with MRI as available, and repeat EEG with neurology as an outpatient and adjusted her antiseizure medications restarting Keppra until seen by local neurology. Continue higher dose Lamictal. (3) Pulmonary hypertension: Status: Chronic Assessment and plan: Continue outpatient medical therapy. (4) Cardiomyopathy: Status: Chronic Assessment and plan: Continue outpatient medical therapy and follow cardiology as scheduled. Qualifiers: Cardiomyopathy type: other Qualified Code(s): I42.8 - Other cardiomyopathies (5) Bipolar disorder: Status: Chronic Assessment and plan: Continue outpatient medical therapy with Trintellix to be decreased but other medications to remain the same after confirmed by pharmacy. The patient does have significant PTSD with agoraphobia and her episode could also be a conversion disorder. She has had significant depression with suicide attempt in the past. Benzodiazepines will be avoided. Qualifiers: Active/Remission status: currently active Current bipolar episode type: depressed Current episode severity: moderate Qualified Code(s): F31.32 - Bipolar disorder, current episode depressed, moderate (6) Type 2 diabetes mellitus: Status: Chronic Assessment and plan: Not on insulin presently but will be placed on glucometer before meals and at bedtime with sensitive sliding scale coverage. Qualifiers: Diabetes mellitus long-term insulin use: without winery cellar hand use Diabetes mellitus complication status: without complication Qualified Code(s): E11.9 - Type 2 diabetes mellitus without complications (7) Chronic back pain: Status: Chronic Assessment and plan: Patient gave history of failed back surgery with chronic back pain on daily Dilaudid. This will not be stopped but monitor closely. She has no new neurological deficits from spinal cord compression. Qualifiers: Back pain location: back pain in other location Qualified Code(s): M54.89 - Other dorsalgia; G89.29 - Other chronic pain (8) Chronic migraine: Assessment and plan: Patient has been on migraine headache treatment in the past and recently has had a continuous headache after a fall [place] a local water[place] with concussion. This may be contributing to her change in status with her seizures and transient encephalopathy. Further imaging and/or consider LP with CSF evaluation if indicated which presently is not being pursued. She does need an MRI at [facility]. She has never had an MRI throughout her life with history of seizures and head injury as well as headaches according to the patient. This is made more difficult present because of her AICD. Subjective Subjective Interval history since last seen: This is a 49-year-old lady who presented with an episode at home which appear to be encephalopathic rather than seizure-like and with medications being modified upon admission, she feels that she is more toward her normal earlier in the day when I visited her. Later in the day she began to have the sensation of not being in her body but above the bed with seeing people in her mind's eye were in the room. She also had nausea. I had a long discussion with pharmacy about her medical regimen which is difficult to reconcile because of the patient seen 2 providers and at maximum doses of at least 3 of the medications which could affect each other. Also all the medications could increase seizure activity or lower seizure threshold. She is unable to have MRI performed at this institution and EEG is not available being normal last month. Treating her symptoms improved her status and she did calm down later in the day. She was restarted on her medications though they were high-dose long-term will need these reevaluated. She is back on Keppra and has had no seizure activity. Her presentation is most likely a consequence of her medications interacting with each other and being high-dose. With her recent fall, she does need to follow- up with an MRI which should be arranged before discharge. I did consult neurology who would not see her as an inpatient but should follow her up closely as an outpatient. If she improves with the medical regimen slightly modified by reducing her most recently started medication Trintellix to half dose, she may be ready for discharge for continued outpatient follow-up and more close follow- up at [facility] with MRI. Exam Narrative Exam Narrative: General: Patient appears appropriate for age, alert and oriented x 3 with flattened affect and being slightly anxious. She was more anxious as she began to have more symptoms later in the day. HEENT: Normocephalic, eyes with pupils equal and reac reactive t to light symmetrically, extraocular movement intact and sclera anicteric. Moist oral mucosa and good dentition. Neck: Supple without JVD. Back: Normal posture without CVA tenderness. Lungs: Clear to auscultation and percussion with no focalizing rales or rhonchi. No expiratory wheeze with patient being a smoker. Heart: Regular rate and rhythm with no murmurs gallops appreciated. Patient does have a palpable subcutaneous AICD over her left lower lateral chest. Abdomen: Obese contour, soft and nontender to palpation with no palpable hepatosplenomegaly. Extremities: Without clubbing, cyanosis or pitting edema. Peripheral pulses intact. Skin: Normal color, warm and dry. Neuro: Cranial nerves II to XII grossly intact, no focalizing motor deficits and no tremor. Tone is normal without clonus. Babinski absent. DTRs physiologic and symmetrical. Psych: Flattened affect with slow monotonous tone to voice. No abnormal thought processes during my exam but she manifested some visual hallucinations intermittently during the day. Remote and recent memory grossly intact. Objective Last Vital Signs Temp 36.3 C L 09/22/24 16:14 Pulse 71 09/22/24 17:54 Resp 19 09/22/24 17:54 BP 86/66 L 09/22/24 17:54 Pulse Ox 98 09/22/24 17:54 Laboratory Results - last 24 hr 09/21/24 09/21/24 09/21/24 18:45 22:30 22:33 WBC RBC Hgb Hct MCV MCH MCHC RDW Plt Count MPV Sodium Potassium Chloride Carbon Dioxide Anion Gap BUN Creatinine Est GFR (CKD-EPI 2020) Glucose Calcium Magnesium Total Bilirubin AST ALT Alkaline Phosphatase Total Protein Albumin Urine Color Yellow Cancelled Urine Clarity Clear Cancelled Urine pH 7.5 Cancelled Ur Specific [place] 1.015 Cancelled Urine Protein Negative Cancelled Urine Ketones 40 H Cancelled Urine Blood Negative Cancelled Urine Nitrite Negative Cancelled Urine Bilirubin Negative Cancelled Urine Urobilinogen 0.2 Cancelled Ur Leukocyte Esterase Negative Cancelled Urine Glucose 500 H Cancelled COVID-19 Source Cancelled SARS-CoV-2 (PCR) Cancelled 09/21/24 09/22/24 23:35 05:28 WBC 5.68 RBC 4.81 Hgb 14.5 Hct 44.3 MCV 92 MCH 30.1 MCHC 32.7 RDW 12.7 Plt Count 196 MPV 10.0 Sodium 143 Potassium 4.1 Chloride 105 Carbon Dioxide 25.8 Anion Gap 12.2 H BUN 15 Creatinine 0.8 Est GFR (CKD-EPI 2020) 90.27 Glucose 87 Calcium 9.0 Magnesium 2.2 Total Bilirubin 0.48 AST 27 ALT 26 Alkaline Phosphatase 43 L Total Protein 6.2 L Albumin 3.2 L Urine Color Urine Clarity Urine pH Ur Specific [place] Urine Protein Urine Ketones Urine Blood Urine Nitrite Urine Bilirubin Urine Urobilinogen Ur Leukocyte Esterase Urine Glucose COVID-19 Source Nasal/Nares SARS-CoV-2 (PCR) Negative Time Spent with Patient Time Spent with Patient: 35-49 minutes Time was spent: preparing to see the patient(eg.review tests), obtaining and/or reviewing separately otained hiistory, ordering medications,tests, procedures, referring, communicating with other health home care physical therapist, indepentently interpreting results, counseling the patient and care coordination
[2024-09-22] MEDS: Estradiol 1 MG TAB 1.5 MG PO (19:50)
[2024-09-22] MEDS: Magnesium Oxide 400 MG TAB PO (19:53)
[2024-09-22] MEDS: Rosuvastatin 10 MG TAB PO (19:53)
[2024-09-22] MEDS: Magnesium Oxide 400 MG TAB 800 MG PO (19:55)
[2024-09-22] MEDS: Melatonin 3 MG TAB 9 MG PO (19:58)
[2024-09-23] VITALS (10 sets, daily range): BP systolic 73–99; BP diastolic 49–70; PULSE 68–85; RESP 11–21; TEMP 36.2–36.3; O2SAT 91–99
[2024-09-23] MEDS: Heparin 5,000 UNITS/ML VIAL 5000 UNITS SC (06:13)
[2024-09-23] MEDS: Levothyroxine 50 MCG TAB PO (06:14)
[2024-09-23] MEDS: Sacubitril/Valsartan 49 mg/51 mg TAB 2 EACH PO (08:09)
[2024-09-23] MEDS: PARoxetine 20 MG TAB 40 MG PO (08:09)
[2024-09-23] MEDS: Loratidine 10 MG TAB PO (08:10)
[2024-09-23] MEDS: HYDROmorphone 4 MG TAB PO (08:10)
[2024-09-23] MEDS: Aspirin E.C. 81 MG TABEC PO (08:10)
[2024-09-23] MEDS: Magnesium Oxide 400 MG TAB PO (08:10)
[2024-09-23] MEDS: Cyanocobalamin 500 MCG TAB 1000 MCG PO (08:10)
[2024-09-23] MEDS: Naproxen 500 MG TAB PO (08:11)
[2024-09-23] MEDS: Mirabegron 25 MG TABCR PO (08:11)
[2024-09-23] MEDS: Pregabalin 100 MG CAP PO (08:11)
[2024-09-23] MEDS: Estradiol 1 MG TAB PO (08:12)
[2024-09-23] MEDS: levETIRAcetam 500 MG TAB PO (08:12)
[2024-09-23] MEDS: Omeprazole 20 MG CAPCR PO (08:12)
[2024-09-23] MEDS: lamoTRIgine 100 MG TAB 200 MG PO (08:12)
[2024-09-23] MEDS: buPROPion-XL 150 MG TABCR 450 MG PO (08:12)
[2024-09-23] MEDS: Normal Saline Flush 10 ML SYR IVP (08:24)
--- NOTE | 2024-09-23 11:45 | DSE_ITS ---
Date of service: 09/23/24 Time of Service: 11:46 DS: Diagnosis Discharge Diagnosis (1) Seizure: Status: Acute Asessment and Plan: Questionable whether this was an actual seizure. The patient just did not feel right. She was having difficulty speaking. At this point it seems more like a reaction to her polypharmacy. Suggestion was made that she sit comfortably in a safe place and hydrate herself and monitor her symptoms when these come on. No real seizure activity was witnessed. I had a long discussion with her psychiatric provider, Melvina Bond, JEREMIAH, we are trying to optimize her medica tions to keep her mood stabilized but there is a high likelihood of some side effects from this regimen. Keppra was given upon admission but not continued. (2) Encephalopathy acute: Status: Acute Asessment and Plan: Acute encephalopathy likely secondary to polypharmacy and multiple medication interactions. Trintellix was cut back to 10 mg daily. Patient had some low blood pressures as an inpatient so her metoprolol was stopped. Restart metoprolol as an outpatient pending her blood pressure results. (3) Cardiomyopathy: Status: Chronic Asessment and Plan: Underlying cardiomyopathy was not an active issue during this admission. (4) Bipolar disorder: Status: Chronic Asessment and Plan: Ongoing issues with bipolar disorder, suicidal ideation. Her mood was stable during this admission and she has voiced no concerns about suicidal ideation. (5) Type 2 diabetes mellitus: Status: Chronic Asessment and Plan: Diabetes under good control during this admission. Continue present medications. Discharge Plan Disposition Patient Disposition: Home Condition: Improving Discharge Details Reason For Visit: Seizure Disorder, Transient Encephalopathy Admit Date/Time: 09/21/24 19:42 Admit Provider: Nikhil Conner Attending Provider: Nikhil Conner [facility] Hospital Course: 49-year-old with history of seizure disorder and ongoing psychiatric illness including suicidal ideation. On the day of admission she felt confused and was acting postictal. She had a teleneurology visit that recommended MRI which could not be performed because of an AICD. She had a recent EEG in July that was normal. She was found to have a toxic encephalopathy related to her polypharmacy. Her meds were adjusted slightly, the Trintellix was decreased to 10 mg daily, metoprolol succinate was discontinued due to low blood pressures. Melvina Bond NP was consulted and agreed with these med adjustments. Patient has follow-up scheduled with Melvina Bond later this month and Staci Seals on 11/01/2024. Home Meds and New Rx's Prescriptions: New Trintellix 20 mg tablet 0.5 ea PO DAILY Qty: 30 0RF Continued clonazepam 1 mg tablet 0.5 mg PO BID PRN Patient Comments: decreased to 0.5mg BID per pt melatonin 10 mg tablet 10 mg PO HS PRN loratadine 10 mg capsule 10 mg PO DAILY mirabegron [Myrbetriq] 25 mg tablet extended release 24 hr 25 mg PO Q24H Patient Comments: TAKE ONE TABLET BY MOUTH EVERY DAY cholecalciferol (vitamin D3) 50 mcg (2,000 unit) capsule 50 mcg PO DAILY naratriptan 2.5 mg tablet 2.5 mg PO BID PRN polyethylene glycol 3350 17 gram/dose Powder 17 g PO DAILY PRN cyanocobalamin (vitamin B-12) 1,000 mcg tablet 1,000 mcg PO DAILY Patient Comments: TAKE ONE TABLET BY MOUTH EVERY DAY dapagliflozin propanediol [Farxiga] 5 mg tablet 5 mg PO QPM Patient Comments: Take 1 tablet by mouth once a day Entresto 97-103 mg tablet 1 tab PO BID Patient Comments: TAKE ONE TABLET BY MOUTH TWICE A DAY pregabalin 100 mg capsule 100 mg PO TID Patient Comments: Take 1 capsule by mouth three times a day hydroxyzine HCl 25 mg tablet 25 mg PO TID PRN Patient Comments: TAKE ONE TABLET BY MOUTH THREE TIMES A DAY NEEDED FOR ANXIETY L-Carnitine 500 mg tablet 1,000 mg PO BID Patient Comments: TAKE TWO TABLETS BY MOUTH EVERY DAY magnesium oxide 400 MG tablet See Rx Instructions PO HS Patient Comments: 400mg AM, 800mg HS per pt Rx Instructions: 400mg in AM, 800mg HS orally bedtime; docusate sodium [Colace] 100 mg capsule 100 mg PO DAILY PRN Patient Comments: PRN per pt hydrocortisone 2.5 % cream 1 applic topical QID PRN levothyroxine [Synthroid] 25 MCG tablet 25 mcg PO HS omeprazole 20 mg Capsule,Delayed Release(Dr/Ec) 20 mg PO DAILY prochlorperazine maleate 10 mg Tablet 10 mg PO DAILY PRN (Reason: Headache) albuterol sulfate [Ventolin HFA] 90 mcg/actuation Hfa Aerosol Inhaler 2 puff INHALATION QID PRN naloxone [Narcan] 4 mg/actuation [place],Non-Aerosol 1 spray INTRANASAL ONCE PRN Patient Comments: Never used. aspirin 81 mg tablet,delayed release (DR/EC) 81 mg PO DAILY Qty: 14 0RF Rx Instructions: Take 1 daily with a meal for 30 days estradiol 1 mg tablet See Rx Instructions .ROUTE .COMPLEX Patient Comments: TAKE 1 TABLET BY MOUTH EVERY MORNING THEN 1.5 TABLETS EVERY EVENING Rx Instructions: --> 1mg qAM and 1.5m,g qPM acetaminophen 500 mg capsule 1,000 mg PO Q8H PRN PRNQty: 30 0RF bupropion HCl 150 mg tablet extended release 24 hr 150 mg PO DAILY Patient Comments: TAKE ONE TABLET BY MOUTH TWICE A DAY WITH MEALS lamotrigine 200 mg tablet 200 mg PO BID naproxen 500 mg tablet 500 mg PO BID PRN bupropion HCl 300 mg tablet extended release 24 hr 300 mg PO DAILY Patient Comments: TAKE ONE TABLET BY MOUTH EVERY DAY. TAKE WITH 150MG DOSE TO EQUAL 450MG rosuvastatin 10 mg tablet 10 mg PO HS Patient Comments: TAKE ONE TABLET BY MOUTH AT BEDTIME riboflavin (vitamin B2) [Vitamin B-2] 100 mg tablet 200 mg PO BID Patient Comments: TAKE TWO TABLETS BY MOUTH EVERY DAY TWO TIMES A DAY paroxetine HCl 40 mg tablet 40 mg PO DAILY Patient Comments: TAKE ONE TABLET BY MOUTH EVERY DAY hydromorphone 4 mg tablet 4 mg PO BID Patient Comments: TAKE ONE TABLET BY MOUTH TWICE A DAY FOR PAIN Trulicity 3 mg/0.5 mL pen injector 3 mg SUBCUT QWEEK Patient Comments: INJECT 3MG UNDER THE SKIN ONCE WEEKLY on THURSDAY Discontinued Trintellix 20 mg tablet 20 mg PO DAILY Patient Comments: TAKE ONE TABLET BY MOUTH EVERY DAY levetiracetam 500 mg tablet 750 mg PO BID Patient Comments: TAKE ONE AND ONE-HALF TABLETS BY MOUTH TWICE A DAY metoprolol succinate 100 mg tablet extended release 24 hr 100 mg PO DAILY Patient Comments: TAKE ONE TABLET BY MOUTH EVERY DAY Discharge Instructions Activity:: Activity as Tolerated Equipment/Supplies:: No Equipment Needed Diet:: Carb Counting Discharge Orders Discharge Orders: Discharge Order (Routine); Ordered 09/23/24 Ordered By: Taurus Davis DS: Summary Time Spent with Patient providing and/or coordinating discharge services: Greater than 30 minutes Status at Discharge Functional status at discharge: independent ambulation Overall status at discharge: patient is back to baseline Mental Status: mental status grossly normal Speech and Movement: speech and movement normal Mood: congruent mood Affect: normal affect Quality:SDOH Health Related Social Needs: Health related social needs transportation insecurity( Z59.82) Health related social needs details: Lives with and son. Her son is coming to get her. Exam Narrative Exam Narrative: Patient was in good spirits sitting up in the chair. She had no respiratory distress. Her lung exam was clear on the right and left. Her heart sounds were regular and strong. No abdominal tenderness. Neurologically she was alert attentive and appropriate. She had no focal motor deficits. Psych Mental Status: mental status grossly normal Speech and Movement: speech and movement normal Mood: congruent mood Affect: normal affect DS: Data Vitals/I&O Vitals and I&O: Vital Signs Temperature 36.2 C L 09/23/24 09:44 Temperature Source Temporal Artery Scan 09/23/24 09:44 Pulse 80 09/23/24 09:44 Pulse 85 09/23/24 09:40 Respiratory Rate 14 09/23/24 09:44 Respiratory Effort Normal 09/21/24 21:29 Respiratory Depth Normal 09/21/24 21:29 Respiratory Pattern Normal 09/21/24 21:29 Blood Pressure 99/68 L 09/23/24 09:44 Blood Pressure Mean 79 09/23/24 09:40 Pulse Oximetry 99 09/23/24 09:44 Oxygen Delivery Method Room Air 09/23/24 09:44 Oxygen Flow Rate 0 09/23/24 09:44 Pain Level 3 09/22/24 16:14 Comment Back is 01/30--patient states this is her baseline. 09/22/24 16:14 Intake & Output 09/22/24 09/22/24 09/23/24 11:59 23:59 11:59 Intake Total 240 / 970 730 / 970 360 / 360 Output Total 700 / 2525 1825 / 2525 Balance -460 / -1555 -1095 / -1555 360 / 360 Weight 79.3 kg Intake: IV Oral 240 / 960 720 / 960 360 / 360 Output: Urine 700 / 2525 1825 / 2525 Other: Urine Color Yellow Yellow Urine Appearance Clear Clear Urine Odor Normal Strong PFSH All Active Problems (Updated 09/22/24 @ 07:57 by Nikhil Conner) Chronic back pain (Chronic) Encephalopathy acute (Acute) Brain TIA (Acute) Seizure (Acute) Contraindication to deep vein thrombosis (DVT) prophylaxis (Acute) Seizure (Acute) Intentional benzodiazepine overdose (Acute) Patellofemoral arthritis of left knee (Acute) Pulmonary hypertension (Chronic) Acute respiratory failure with hypoxia (Acute) Pulmonary edema (Acute) Acute respiratory distress (Acute) COVID-19 (Acute) Bilateral carpal tunnel syndrome (Acute) S/P R ECTR: 05/13/2022 Amplified musculoskeletal pain (Acute) Tendonitis of long head of biceps brachii of right shoulder (Acute) Bursitis of right shoulder (Acute) Traumatic tear of right rotator cuff (Acute) Calcific tendinitis of right shoulder (Acute) 40mg depo-medrol injection: 02/11/2022 Lateral epicondylitis of right elbow (Acute) 40mg depo-medrol injection: 02/11/2022 Hematest positive stools (Acute) Cardiomyopathy (Chronic) last echocardiogram 01/27/2019, LVEF 50-55%, no regional wall motion abnormalities, mild LVH, mild MR; normal RV size and function Bipolar disorder (Chronic) 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 (Acute 01/25/14) Atypical chest pain (Acute) Type 2 diabetes mellitus (Chronic) Palpitations (Acute) Spell of altered consciousness (Acute) Elevated brain natriuretic peptide (BNP) level (Acute) Chest pain (Acute) Screening for colon cancer (Acute) Tobacco use (Acute) Fecal occult blood test positive (Acute) Medical History Knee abrasion Myalgia Urinary incontinence Fatigue Shortness of breath Dizziness, nonspecific Orthostasis Elbow fracture, right Unresponsive episode Hyperthyroidism Carpal tunnel syndrome, left Impingement syndrome of left shoulder (~03/2019) Left rotator cuff tear (~03/2019) Tendinitis of long head of biceps brachii of left shoulder (~03/2019) Bursitis of left shoulder (~03/2019) Cervical radiculopathy bilateral Acute kidney injury DVT prophylaxis Discharge planning issues Dyspnea 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) Chronic migraine (03/07/15) Medication overuse headache (03/07/15) Migraine headache with aura (03/07/15) Migraine headache without aura (03/07/15) control (01/25/14) Dehydration Suicidal ideation Change in mental status Tachycardia Splenomegaly Lactose intolerance Hyperlipidemia Depression Anxiety Chronic pain syndrome CAD (coronary artery disease) mild non-obstructive disease per cardiac cath report from [facility] [place] 09/07/2013, more recent repeat cath unchanged but with pulmonary HTN Morbid obesity Diabetes Polycystic ovaries Surgical History S/P hysterectomy History of arthroscopy of left shoulder Hx of cardiac catheterization 08/2021-no stent placed History of endometrial ablation History of section x2 Previous back surgery Social History Smoking/Tobacco Use Status: Former Tobacco Use Quit status: quit date established Smoking risk assessment performed?: Yes Alcohol Intake: never Drug use: Never Substance use type: does not use Housing: apartment Number of Children: 3 Current gender identity: female What is your relationship status?: Panel score (0-1 are the most socially isolated patients): 0 What type of physical activity do you participate in: none Do you feel safe at home: Yes Do you feel safe in your relationship?: Yes Female Reproductive History Menstrual control method: permanent sterilization Time Spent with Patient Time Spent with Patient: 45-69 minutes Time was spent: preparing to see the patient(eg.review tests), obtaining and/or reviewing separately otained hiistory, ordering medications,tests, procedures, referring, communicating with other health personal care assistant, indepentently interpreting results, counseling the patient and care coordination
--- NOTE | 2024-09-23 15:09 | CMDISCH_ITS ---
Date of service: 09/23/24 Time of Service: 15:11 LACE Index Scoring Tool Questions: Length of Stay (in days): 2 Was the patient admitted via the E.D.?: Yes Comorbidities: Diabetes w/o Complication E.D. Visits: 3 Answers: Total Score: 9 Risk of Readmission: Low Risk Care Management Discharge Plan Reason for Hospitalization: seizure disorder, transient encephalopathy Discharge Plan: Jammie returned home with no new services. She transported home via private vehicle by family. She will follow up with her PCP and her discharge plan of care. She is happy to be going home. Patient/Family Education Needs: Review discharge instructions and limitations, discussion of self care needs including ask me three. SDOH Health Related Social Needs: 2 Health related social needs transportation insecurity( Z59.82) Health related social needs details Lives with and son. Her son is coming to get her. Health related social needs: transportation insecurity(Z59.82) (reported that she can not drive due to her seizures, and her can't drive because he has knee problems.) Health related social needs details: Lives with and son. Her son is coming to get her.
== END 2024-09-23 12:59 | disposition home or self-care (01) ==
LOC: ER 16:59 → ICU 20:38
PROVIDERS: Admitting Provider Family Medicine; Emergency Provider Emergency Medicine; PCP Family Medicine; Visit Provider Family Medicine
DX: G92.8 Other toxic encephalopathy (principal); G40.909 Epilepsy, unspecified, not intractable, without status epilepticus; Z79.899 Other long term (current) drug therapy; I27.20 Pulmonary hypertension, unspecified; F31.32 Bipolar disorder, current episode depressed, moderate; E11.9 Type 2 diabetes mellitus without complications; G89.29 Other chronic pain; M54.9 Dorsalgia, unspecified; Z79.891 Long term (current) use of opiate analgesic; I42.0 Dilated cardiomyopathy; F17.210 Nicotine dependence, cigarettes, uncomplicated; E05.90 Thyrotoxicosis, unspecified without thyrotoxic crisis or storm; G43.709 Chronic migraine without aura, not intractable, without status migrainosus; F41.8 Other specified anxiety disorders; E78.5 Hyperlipidemia, unspecified; I25.10 Atherosclerotic heart disease of native coronary artery without angina pectoris; M54.89 Other dorsalgia
CPT/HCPCS: 00123; 36415; 70496; 70498; 80053; 85027; 87635; 93005; 96365; 96372; 96375; 97162; 99285; 71045; 80320; 80329; 81003; 83735; 84443; 84484; 84703; 85025; 93010; 99223; 99232; 99239; G0378; J1644; J1815; J1953; J2060; J2250

== ENCOUNTER → 2024-10-13 10:40 | Outpatient (BNVA) | payer MEDICARE, MEDICAID, SELFPAY | PROVIDERS: PCP Family Medicine; Referring Provider Nurse Practitioner Acute Care; Visit Provider Psychiatry & Neurology Neurology | DX: R40.4 Transient alteration of awareness (principal); G43.709 Chronic migraine without aura, not intractable, without status migrainosus; F07.81 Postconcussional syndrome; G47.00 Insomnia, unspecified | CPT/HCPCS: 99215; G2212 ==

== ENCOUNTER 2024-11-07 19:35 | Outpatient (REF) | payer MEDICARE, MEDICAID, SELFPAY | END 2024-11-07 19:36 | disposition home or self-care (01) | LOC: NCHCN 19:35 | PROVIDERS: PCP Family Medicine; Visit Provider Family Medicine | DX: E03.9 Hypothyroidism, unspecified (principal) | CPT/HCPCS: 84443 ==

== ENCOUNTER 2025-01-23 18:02 | Emergency (ER) | payer MEDICARE, MEDICAID, SELFPAY ==
[2025-01-23 18:09] VITALS: BP 110/78; PULSE 87; RESP 20; TEMP 36.6; O2SAT 98
[2025-01-23 18:14] VITALS: BP 110/78; PULSE 87; RESP 20; TEMP 36.6; O2SAT 98
== END 2025-01-24 01:08 | disposition left against medical advice (07) ==
LOC: ER 19:04
PROVIDERS: PCP Family Medicine
DX: Z53.21 Procedure and treatment not carried out due to patient leaving prior to being seen by health care provider (principal)

== ENCOUNTER 2025-01-30 21:44 | Outpatient (REF) | payer MEDICARE, MEDICAID, SELFPAY ==
[2025-01-30 22:29] LABS: TSH (W/Ref FT4) 1.34 uIU/mL (0.36-3.74)
== END 2025-01-30 21:45 | disposition home or self-care (01) ==
LOC: NCHCN 21:44
PROVIDERS: PCP Family Medicine; Visit Provider Family Medicine
DX: E02 Subclinical iodine-deficiency hypothyroidism (principal)
CPT/HCPCS: 84443

== ENCOUNTER 2025-04-16 16:31 | Emergency (ER) | payer MEDICARE, MEDICAID, SELFPAY ==
[2025-04-16] VITALS (11 sets, daily range): BP systolic 95–103; BP diastolic 57–70; PULSE 80–102; RESP 21; TEMP 36.5–36.6; O2SAT 97–99
--- NOTE | 2025-04-16 16:30 | RT.EKG_ITS ---
APPROVED REPORT Exam: Resting ECG Reason for Exam: SOB Patient Location: E HR:90 bpm ECG Measurements Heart Rate 90 AXIS DC 161 P 63 QRSd 84 QRS 9 QT 382 T 31 QTc 469 Conclusion Sinus rhythm, rate 90 No interval abnormalities Q waves V1, V2, unchanged from priors No STEMI
--- NOTE | 2025-04-16 16:46 | ED.GENADUL_ITS ---
Discharge Plan Disposition Patient Disposition: Home Discharge Details Clinical Impression: Atypical migraine Primary Care Provider: Edie Ellis ED Provider: Maria L Simeon Home Meds and New Rx's Prescriptions: No Action clonazepam 1 mg tablet 0.5 mg PO BID PRN Patient Comments: decreased to 0.5mg BID per pt melatonin 10 mg tablet 10 mg PO HS PRN loratadine 10 mg capsule 10 mg PO DAILY mirabegron [Myrbetriq] 25 mg tablet extended release 24 hr 25 mg PO Q24H Patient Comments: TAKE ONE TABLET BY MOUTH EVERY DAY cholecalciferol (vitamin D3) 50 mcg (2,000 unit) capsule 50 mcg PO DAILY Emgality Pen 120 mg/mL pen injector 120 mg subcut QMONTH Qty: 3 3RF naratriptan 2.5 mg tablet 2.5 mg PO BID PRN polyethylene glycol 3350 17 gram/dose Powder 17 g PO DAILY PRN cyanocobalamin (vitamin B-12) 1,000 mcg tablet 1,000 mcg PO DAILY Patient Comments: TAKE ONE TABLET BY MOUTH EVERY DAY dapagliflozin propanediol [Farxiga] 5 mg tablet 5 mg PO QPM Patient Comments: Take 1 tablet by mouth once a day Entresto 97-103 mg tablet 1 tab PO BID Patient Comments: TAKE ONE TABLET BY MOUTH TWICE A DAY pregabalin 100 mg capsule 100 mg PO TID Patient Comments: Take 1 capsule by mouth three times a day hydroxyzine HCl 25 mg tablet 25 mg PO TID PRN Patient Comments: TAKE ONE TABLET BY MOUTH THREE TIMES A DAY NEEDED FOR ANXIETY L-Carnitine 500 mg tablet 1,000 mg PO BID Patient Comments: TAKE TWO TABLETS BY MOUTH EVERY DAY magnesium oxide 400 MG tablet See Rx Instructions PO HS Patient Comments: 400mg AM, 800mg HS per pt Rx Instructions: 400mg in AM, 800mg HS orally bedtime; docusate sodium [Colace] 100 mg capsule 100 mg PO DAILY PRN Patient Comments: PRN per pt hydrocortisone 2.5 % cream 1 applic topical QID PRN Trintellix 20 mg tablet 0.5 ea PO DAILY Qty: 30 0RF levothyroxine [Synthroid] 25 MCG tablet 25 mcg PO HS omeprazole 20 mg Capsule,Delayed Release(Dr/Ec) 20 mg PO DAILY prochlorperazine maleate 10 mg Tablet 10 mg PO DAILY PRN (Reason: Headache) albuterol sulfate [Ventolin HFA] 90 mcg/actuation Hfa Aerosol Inhaler 2 puff INHALATION QID PRN naloxone [Narcan] 4 mg/actuation [place],Non-Aerosol 1 spray INTRANASAL ONCE PRN Patient Comments: Never used. aspirin 81 mg tablet,delayed release (DR/EC) 81 mg PO DAILY Qty: 14 0RF Rx Instructions: Take 1 daily with a meal for 30 days estradiol 1 mg tablet See Rx Instructions .ROUTE .COMPLEX Patient Comments: TAKE 1 TABLET BY MOUTH EVERY MORNING THEN 1.5 TABLETS EVERY EVENING Rx Instructions: --> 1mg qAM and 1.5m,g qPM acetaminophen 500 mg capsule 1,000 mg PO Q8H PRN PRNQty: 30 0RF lamotrigine 200 mg tablet 200 mg PO BID naproxen 500 mg tablet 500 mg PO BID PRN rosuvastatin 10 mg tablet 10 mg PO HS Patient Comments: TAKE ONE TABLET BY MOUTH AT BEDTIME riboflavin (vitamin B2) [Vitamin B-2] 100 mg tablet 200 mg PO BID Patient Comments: TAKE TWO TABLETS BY MOUTH EVERY DAY TWO TIMES A DAY paroxetine HCl 40 mg tablet 40 mg PO DAILY Patient Comments: TAKE ONE TABLET BY MOUTH EVERY DAY hydromorphone 4 mg tablet 4 mg PO BID Patient Comments: TAKE ONE TABLET BY MOUTH TWICE A DAY FOR PAIN Trulicity 3 mg/0.5 mL pen injector 3 mg SUBCUT QWEEK Patient Comments: INJECT 3MG UNDER THE SKIN ONCE WEEKLY on THURSDAY bupropion HCl 450 mg tablet extended release 24 hr 450 mg PO ONCE Patient Comments: TAKE ONE TABLET BY MOUTH EVERY DAY Discharge Instructions Additional Instructions: Please call Dr Eason's office first thing Thursday to schedule a follow up appointment for further evaluation/management. Continue taking medications as prescribed. Eat regular meals and drink plenty of fluid throughout the day. Please take your migraine medications as prescribed if you develop new headaches. Return to emergency care if develop new severe headaches, uncontrollable vomiting, significant dizziness, balance problems, or if you have any new/concerning symptoms that are very worried about need to have rechecked again immediately. Referrals: [facility] [Provider Group] HPI General Date/Time Provider Initiated Documentation: 04/16/25 16:35 . HPI Narrative: Jammie is a 49-year-old female who presents to the emergency department accompanied by her for evaluation of intermittent cyanosis of toes and lips, observed as bright purple during a shower, accompanied by chest pressure, dyspnea (feeling like she cannot get good oxygenation), and a sensation of inadequate oxygenation since 0800 hours. Persistent visual disturbances described as 3D and foggy vision began at the same time. Reports twitching movements and a sensation of her brain being off. This morning also started with unusual headaches present all day: left-sided and occipital, described as going straight down through her head. Usual migraines encircle her head. She also reports some intermittent palpitations and left-sided chest discomfort today as well; says this feels like stress rather than CHF symptoms. Denies recent illness symptoms such as fever/chills, congestion, runny nose, sore throat, or cough. Experienced nausea this morning, consistent with her usual pattern. Diet includes coffee, water, soda during the day, and a meal at night; did not eat yesterday due to fatigue and malaise. No change in bowel or bladder function; has a history of constipation and had a large hard stool today (not black or tarry, no blood ). No recent seizures, says that these have been well- controlled on lamotrigine. However, she says that the shakiness that she feels is similar to the feeling she has prior to seizure. Denies EtOH, tobacco, marijuana, or other drug use. Reports she has been taking her medications as prescribed, has not used any as needed anxiety medication today Past medical history significant for seizures, cardiomyopathy, CHF, and implanted defibrillator. Also has history of bipolar, T2DM, hypothyroidism, HLD on estrogen replacement therapy post-hysterectomy and menopause. No history of blood clots; on aspirin therapy. Related Data Home Medications ?Medication ?Instructions ?Recorded ?Confirmed levothyroxine 25 mcg tablet 25 mcg PO HS 03/05/17 04/16/25 (Synthroid) albuterol sulfate 90 mcg/actuation 2 puff inhalation QID PRN 03/10/19 04/16/25 aerosol inhaler (Ventolin HFA) naloxone 4 mg/actuation nasal 1 spray intranasal ONCE PRN 03/10/19 04/16/25 spray (Narcan) omeprazole 20 mg capsule,delayed 20 mg PO DAILY 03/10/19 04/16/25 release prochlorperazine maleate 10 mg 10 mg PO DAILY PRN Headache 03/10/19 04/16/25 tablet aspirin 81 mg tablet,delayed 81 mg PO DAILY Prevent blood clot 09/30/19 04/16/25 release #14 tabs polyethylene glycol 3350 17 17 g PO DAILY PRN 12/22/19 04/16/25 gram/dose oral powder naratriptan 2.5 mg tablet 2.5 mg PO BID PRN 03/27/20 04/16/25 estradiol 1 mg tablet See Rx Instructions .Route .COMPLEX 06/10/21 04/16/25 cholecalciferol (vitamin D3) 50 50 mcg PO DAILY 11/21/21 04/16/25 mcg (2,000 unit) capsule acetaminophen 500 mg capsule 1,000 mg (2 x 500 mg) PO Q8H PRN 05/13/22 04/16/25 PRN #30 caps clonazepam 1 mg tablet 0.5 mg PO BID PRN 11/14/22 04/16/25 melatonin 10 mg tablet 10 mg PO HS PRN 11/14/22 04/16/25 loratadine 10 mg capsule 10 mg PO DAILY 03/03/23 04/16/25 cyanocobalamin (vitamin B-12) 1,000 mcg PO DAILY 08/13/23 04/16/25 1,000 mcg tablet dapagliflozin propanediol 5 mg 5 mg PO QPM 08/13/23 04/16/25 tablet (Farxiga) pregabalin 100 mg capsule 100 mg PO TID 08/13/23 04/16/25 sacubitril 97 mg-valsartan 103 mg 1 tab PO BID 08/13/23 04/16/25 tablet (Entresto) mirabegron 25 mg tablet,extended 25 mg PO Q24H 08/05/24 04/16/25 release 24 hr (Myrbetriq) dulaglutide 3 mg/0.5 mL 3 mg subcut QWEEK 08/15/24 04/16/25 subcutaneous [facility] hydromorphone 4 mg tablet 4 mg PO BID 08/15/24 04/16/25 lamotrigine 200 mg tablet 200 mg PO BID 08/15/24 04/16/25 naproxen 500 mg tablet 500 mg PO BID PRN 08/15/24 04/16/25 paroxetine HCl 40 mg tablet 40 mg PO DAILY 08/15/24 04/16/25 riboflavin (vitamin B2) 100 mg 200 mg PO BID 08/15/24 04/16/25 tablet (Vitamin B-2) rosuvastatin 10 mg tablet 10 mg PO HS 08/15/24 04/16/25 hydroxyzine HCl 25 mg tablet 25 mg PO TID PRN 09/21/24 04/16/25 docusate sodium 100 mg capsule 100 mg PO DAILY PRN 09/22/24 04/16/25 (Colace) hydrocortisone 2.5 % topical cream 1 applic topical QID PRN 09/22/24 04/16/25 levocarnitine 500 mg tablet 1,000 mg PO BID 09/22/24 04/16/25 (L-Carnitine) magnesium oxide 400 mg (241.3 mg See Rx Instructions PO HS 09/22/24 04/16/25 magnesium) tablet Trintellix 0.5 ea PO DAILY #30 tabs 09/23/24 04/16/25 galcanezumab-gnlm 120 mg/mL 120 mg subcut QMONTH #3 mL 11/07/24 04/16/25 subcutaneous pen injector (Emgality Pen) bupropion HCl 450 mg 24 hr tablet, 450 mg PO ONCE 04/16/25 04/16/25 extended release Previous Rx's ?Medication ?Instructions ?Recorded aspirin 81 mg tablet,delayed 81 mg PO DAILY Prevent blood clot 09/30/19 release #14 tabs acetaminophen 500 mg capsule 1,000 mg (2 x 500 mg) PO Q8H PRN 05/13/22 PRN #30 caps Trintellix 0.5 ea PO DAILY #30 tabs 09/23/24 galcanezumab-gnlm 120 mg/mL 120 mg subcut QMONTH #3 mL 11/07/24 subcutaneous pen injector (Emgality Pen) Allergies Allergy/AdvReac Type Severity Reaction Status Date / Time Penicillins Allergy Severe throat Verified 04/16/25 16:41 closes Sulfa (Sulfonamide Allergy Mild Hives Verified 04/16/25 16:41 Antibiotics) General Stated Complaint: SOB RENATO: 3 Exam Narrative Exam Narrative: General Appearance: Normal. Vital signs: Within normal limits. Respiratory: Easy work of breathing, lung sounds clear bilaterally. Able to speak in full sentences Cardiac: Normal heart sounds, regular rate and rhythm. Radial pulses intact bilaterally. brisk cap refill to upper and lower extremities, no circumoral or peripheral cyanosis noted Neurological: Cranial nerves II through XII intact as tested. EOMs intact. A+O x 3. Normal finger to finger, [id number], gait, rapid alternating mo vements; does have some tremor with hand coordination. Significant tremor noted to upper extremities with intentional movement. Skin: Warm and dry, no rash. Psychiatric: Normal. Course Vital Signs Vital signs: Vital Signs Temperature 36.6 C 04/16/25 16:35 Pulse 92 H 04/16/25 16:35 Respiratory Rate 21 04/16/25 16:35 Blood Pressure 103/70 04/16/25 16:35 Pulse Oximetry 98 04/16/25 16:35 Temperature 36.6 C 04/16/25 16:35 Temperature Source Oral 04/16/25 16:35 Pulse 92 H 04/16/25 16:35 Respiratory Rate 21 04/16/25 16:35 Blood Pressure 103/70 04/16/25 16:35 Blood Pressure Position Sitting 04/16/25 16:35 Pulse Oximetry 98 04/16/25 16:35 Oxygen Delivery Method Room Air 04/16/25 16:35 Oxygen Flow Rate 0 04/16/25 16:35 Medical Decision Making Initial Assessment: 49-year-old female presenting with intermittent blue discoloration of toes and lips, chest pressure, visual disturbances looks like everything is blurry and in 3-D, tremors, and headache Differential Diagnosis includes but is not limited to: CHF, ACS, GERD, Intracranial mass, electrolyte imbalance, viral illness, occult infection such as PNA or UTI, medication reaction/misuse, thyroid dysfunction, seizure prodrome, anxiety. History, presentation, and exam not consistent with CVA or posterior stroke. HEART score 3, indicating low risk of MACE. I independently interpreted the following tests: EKG reassuring, normal sinus rhythm, rate 90. No changes consistent with acute ischemia. Normal intervals. CBC, CMP, VBG, TSH, UA all unremarkable. Troponin flat at <[address] unremarkable, no acute intracranial abnormality. Chest x-ray reassuring. ED course: - Administered half a tablet of clonazepam for anxiety, with good improvement of tremors and headache. Jammie does report that she continues to have 3D vision with fogginess fading in and out. Repeat neuro exam improved, however patient is unable to heel-toe walk without assistance. Some tremor noted with [id number] and finger to finger. While waiting for labs Jammie reports that her chest pain and the 3D vision/foggy vision has fully resolved in her right eye and is improving in her left eye as well. She and her both report that she feels she has returned to baseline. She is able to ambulate without difficulty, says she feels steady on her feet. Cardiac workup today reassuring. Unclear etiology of chest discomfort, however resolved after GI cocktail. Teleneuro consult performed, discussed findings with Dr. Woods. At this time patient's headache and symptoms have fully resolved. History and presentation most consistent with atypical migraine; not consistent with CVA/TIA or seizure. Recommend close follow-up with neurology. Clinical Impression: Atypical migraine Disposition: Discharged home for follow-up with neurology. Reviewed discharge instructions with patient, including red flags indicate need for return to emergency care. She voices agreement with plan of care. MDM Components Evaluation: - Number of Differential Diagnoses or Management Options: Cyanosis, Chest Pressure, Visual Disturbances, Tremors, Constipation, Anxiety. - Amount and Complexity of Data Reviewed: Neurological exam, lung evaluation, patient history, and medication review. - Risk of Complication and Morbidity or Mortality: Moderate risk due to underlying cardiomyopathy, CHF, and potential neurological issues. Patient consented to the use of PERI Imaging Data Radiologic Study: Radiologist's impression: Exam(s) CT HEAD WO EXAM: CT HEAD WO CLINICAL HISTORY: headache, vision changes. TECHNIQUE: Imaging Protocol: Axial computed tomography images with coronal and sagittal reformatted images were created and reviewed COMPARISON: No exams were available for comparison FINDINGS: Ventricles and Extra axial spaces: Normal in size and morphology for the patient's age. Hemorrhage: None. Cerebral parenchyma: No evidence of acute infarct or mass. Midline shift: None. Brainstem/Cerebellum: Normal. Calvarium: Normal. Visualized Paranasal sinuses:Clear. Mastoids: Clear. Soft Tissues: Unremarkable. ORBITS: Unremarkable. PITUITARY: Not enlarged. IMPRESSION: No acute intracranial process. Radiologic Study #2: Radiologist's impression: Exam(s) XR CHEST 2V PA LATERAL EXAM: XR CHEST 2V PA LATERAL CLINICAL HISTORY: SOB, L sided chest discomfort TECHNIQUE: 2D digital imaging was performed. Two views. COMPARISON: CR XR PORTABLE CHEST AP from 09/21/2024 FINDINGS: HEART: Normal size. Aorta: Not dilated. PULMONARY VASCULATURE: Normal. MEDIASTINUM: Unremarkable. LUNGS: Clear. PLEURAL SPACE: No pleural effusion or pneumothorax. BONE:Unremarkable for age. SOFT TISSUES: Stimulator device noted anterior midline of the chest. IMPRESSION: No acute abnormality. Quality:SDOH Health Related Social Needs: Health related social needs details Lives with and son. Her son is coming to get her. PFSH All Active Problems (Updated 04/16/25 @ 22:28 by Maria L Mon) Atypical migraine (Acute) Insomnia (Acute) Post concussion syndrome (Acute) Migraine headache without aura (Acute 03/07/15) Chronic migraine (Acute 03/07/15) Medication overuse headache (Acute 03/07/15) Encephalopathy acute (Acute) Seizure (Acute) Contraindication to deep vein thrombosis (DVT) prophylaxis (Acute) Seizure (Acute) Intentional benzodiazepine overdose (Acute) Patellofemoral arthritis of left knee (Acute) Acute respiratory failure with hypoxia (Acute) Pulmonary edema (Acute) Acute respiratory distress (Acute) COVID-19 (Acute) Bilateral carpal tunnel syndrome (Acute) S/P R ECTR: 05/13/2022 Amplified musculoskeletal pain (Acute) Tendonitis of long head of biceps brachii of right shoulder (Acute) Bursitis of right shoulder (Acute) Traumatic tear of right rotator cuff (Acute) Calcific tendinitis of right shoulder (Acute) 40mg depo-medrol injection: 02/11/2022 Lateral epicondylitis of right elbow (Acute) 40mg depo-medrol injection: 02/11/2022 Hematest positive stools (Acute) 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 (Acute 01/25/14) Atypical chest pain (Acute) Palpitations (Acute) Spell of altered consciousness (Acute) Elevated brain natriuretic peptide (BNP) level (Acute) Chest pain (Acute) Screening for colon cancer (Acute) Tobacco use (Acute) Fecal occult blood test positive (Acute) Medical History Chronic back pain Pulmonary hypertension Type 2 diabetes mellitus Bipolar disorder Cardiomyopathy last echocardiogram 01/27/2019, LVEF 50-55%, no regional wall motion abnormalities, mild LVH, mild MR; normal RV size and function Knee abrasion Myalgia Urinary incontinence Fatigue Shortness of breath Dizziness, nonspecific Orthostasis Elbow fracture, right Hyperthyroidism Carpal tunnel syndrome, left Impingement syndrome of left shoulder (~03/2019) Left rotator cuff tear (~03/2019) Tendinitis of long head of biceps brachii of left shoulder (~03/2019) Bursitis of left shoulder (~03/2019) Cervical radiculopathy bilateral Acute kidney injury DVT prophylaxis Discharge planning issues Dyspnea control (01/25/14) Dehydration Suicidal ideation Change in mental status Tachycardia Splenomegaly Lactose intolerance Hyperlipidemia Depression Anxiety Chronic pain syndrome CAD (coronary artery disease) mild non-obstructive disease per cardiac cath report from [facility] 09/07/2013, more recent repeat cath unchanged but with pulmonary HTN Morbid obesity Diabetes Polycystic ovaries Surgical History S/P hysterectomy History of arthroscopy of left shoulder Hx of cardiac catheterization 08/2021-no stent placed History of endometrial ablation History of section x2 Previous back surgery Social History Smoking/Tobacco Use Status: Former Tobacco Use Quit status: quit date established Smoking risk assessment performed?: Yes Alcohol Intake: never Drug use: Never Substance use type: does not use Housing: apartment Number of Children: 3 current occupation: Disabled Current gender identity: female What is your relationship status?: Panel score (0-1 are the most socially isolated patients): 0 What type of physical activity do you participate in: none Do you feel safe at home: Yes Do you feel safe in your relationship?: Yes Female Reproductive History Menstrual control method: permanent sterilization
--- NOTE | 2025-04-16 17:00 | DI.CT_ITS ---
Exam(s) CT HEAD WO EXAM: CT HEAD WO CLINICAL HISTORY: headache, vision changes. TECHNIQUE: Imaging Protocol: Axial computed tomography images with coronal and sagittal reformatted images were created and reviewed COMPARISON: No exams were available for comparison FINDINGS: Ventricles and Extra axial spaces: Normal in size and morphology for the patient's age. Hemorrhage: None. Cerebral parenchyma: No evidence of acute infarct or mass. Midline shift: None. Brainstem/Cerebellum: Normal. Calvarium: Normal. Visualized Paranasal sinuses:Clear. Mastoids: Clear. Soft Tissues: Unremarkable. ORBITS: Unremarkable. PITUITARY: Not enlarged. IMPRESSION: No acute intracranial process. RADIATION DOSE DELIVERED: Total DLP DATA REPOSITORY: All CT scans at this facility are submitted to the National Radiology Data Registry (NRDR) Dose Index Registry (DIR) with the [employer] (ACR). RADIATION OPTIMIZATION: All CT scans at this facility use at least one of these dose optimization te chniques: automated exposure control; mA and/or kV adjustment per patient size (includes targeted exa ms where dose is matched to clinical indication); or iterative reconstruction.
--- NOTE | 2025-04-16 17:10 | DI.RAD_ITS ---
Exam(s) XR CHEST 2V PA LATERAL EXAM: XR CHEST 2V PA LATERAL CLINICAL HISTORY: SOB, L sided chest discomfort TECHNIQUE: 2D digital imaging was performed. Two views. COMPARISON: CR XR PORTABLE CHEST AP from 09/21/2024 FINDINGS: HEART: Normal size. Aorta: Not dilated. PULMONARY VASCULATURE: Normal. MEDIASTINUM: Unremarkable. LUNGS: Clear. PLEURAL SPACE: No pleural effusion or pneumothorax. BONE:Unremarkable for age. SOFT TISSUES: Stimulator device noted anterior midline of the chest. IMPRESSION: No acute abnormality. DATA REPOSITORY: RADIATION DOSE DELIVERED:
[2025-04-16] MEDS: clonazePAM 0.5 MG TAB PO (17:21)
[2025-04-16 17:27] LABS: BE (Venous) 4 mmol/L (-2-3); HCO3 (Venous) 29 mmol/L (23-28); O2 Sat (Venous) 88 %; TCO2 (Venous) 25 mmol/L (24-29); pCO2 (Venous) 44 mmHg (41-51); pH (Venous) 7.42 (7.31-7.41); pO2 (Venous) 53 mmHg
[2025-04-16 17:28] LABS: Abs Immature Grans 0.01 10^3/uL (0.0-0.06); Absolute Basophil Count 0.04 10^3/uL (0.0-0.2); Absolute Eosinophil Count 0.17 10^3/uL (0.0-0.7); Absolute Lymphocyte Count 2.52 10^3/uL (1.2-3.4); Absolute Monocyte Count 0.42 10^3/uL (0.1-0.8); Absolute Neutrophil Count 3.81 10^3/uL (1.2-6.7); Basophils % 0.6 %; Eosinophils % 2.4 %; HGB 14.7 g/dL (11.2-15.7); Immature Grans % 0.1 %; Lymphocytes % 36.2 %; MCH 30.4 pg (27.0-33.0); MCHC 33.4 % (32.0-36.0); MCV 91 fL (80-95); MPV 9.7 fL (8.0-11.0); Neutrophils % 54.7 %; Platelet Count 189 10^3/uL (130-400); RBC 4.84 10^6/uL (3.93-5.22); RDW 12.8 % (11.7-14.6); RDW-SD 42.8 fL; WBC 6.97 10^3/uL (4.4-10.8)
[2025-04-16 17:41] LABS: Magnesium 1.7 mg/dL (1.8-2.4)
[2025-04-16 17:43] LABS: Bilirubin Negative (Negative); Blood Negative (Negative); Clarity Clear (Clear); Glucose 500 mg/dL (Negative); Ketones Negative (Negative); Leukocyte Esterase Negative (Negative); Nitrite Negative (Negative); Urobilinogen 0.2 mg/dL (Up to 0.2)
[2025-04-16 17:55] LABS: *AMPHETAMINES SCREEN URINE Negative (Negative); *BARBITURATES SCREEN URINE Negative (Negative); *BENZODIAZEPINES SCREEN URINE Negative (Negative); Cannabinoids THC Negative (Negative); Cocaine Screen,Urine Negative (Negative); METHADONE URINE SCREEN Negative (Negative); OPIATES URINE SCREEN Positive (Negative)
[2025-04-16 17:56] LABS: ALT 23 U/L (14-59); AST 19 U/L (15-37); Albumin 3.6 g/dL (3.4-5.0); Alkaline Phosphatase 53 U/L (46-116); Anion Gap 7.7 mmol/L (3-11); BUN 12 mg/dL (7-18); Bilirubin, Total 0.3 mg/dL (0.2-1.0); CO2 30.3 mmol/L (21.0-32.0); CREATININE 0.6 mg/dL (0.55-1.02); Chloride 102 mmol/L (98-107); Estimated GFR 109.96 (mL/min/1.73m2); Glucose 91 mg/dL (74-106); Potassium 4.2 mmol/L (3.5-5.1); Sodium 140 mmol/L (136-145); TSH (W/Ref FT4) 1.94 uIU/mL (0.36-3.74); Total Protein 6.9 g/dL (6.4-8.2)
[2025-04-16 17:57] LABS: Tricyclic Antidepressants Negative (Negative)
[2025-04-16 17:57] LABS: ETHANOL BLOOD < 3.0 mg/dL (<10); Troponin I < 4 ng/L (<or=51)
--- NOTE | 2025-04-16 18:05 | DI.VRAD_ITS ---
PROCEDURE INFORMATION: Exam: CT Head Without Contrast Exam date and time: 04/16/2025 5:36 PM Age: 49 years old Clinical indication: Other: Headache, vision changes TECHNIQUE: Imaging protocol: Computed tomography of the head without contrast. COMPARISON: CT BRAIN NECK CTA 09/21/2024 3:04 PM FINDINGS: Brain: No acute intracranial hemorrhage, mass-effect, midline shift, or extra-axial collection is seen. The quinonez white matter differentiation appears preserved. Cerebral ventricles: The ventricular system and basilar cisterns appear appropriate in size and configuration. Paranasal sinuses: The visualized paranasal sinuses appear well-aerated. Mastoid air cells: The mastoid air cells appear well-aerated. Auditory system: The middle ear cavities appear clear. Orbital cavities: The globes and intraorbital structures appear grossly intact. Bones: The bony calvarium appears intact. No depressed skull fracture is seen. Soft tissues: No significant scalp lesion is seen. IMPRESSION: No acute intracranial abnormality seen. Dictated and Authenticated by: Chilo Dobson MD. Orderin Calli Lisa MD
[2025-04-16 18:08] LABS: COVID-19 PCR Negative (Negative); Influenza A PCR Negative (Negative); Influenza B PCR Negative (Negative); RSV PCR Negative (Negative)
[2025-04-16 18:10] LABS: Source Nasopharynx
--- NOTE | 2025-04-16 18:10 | DI.VRAD_ITS ---
PROCEDURE INFORMATION: Exam: XR Chest Exam date and time: 04/16/2025 5:32 PM Age: 49 years old Clinical indication: Other: SOB, L sided chest discomfort TECHNIQUE: Imaging protocol: Radiologic exam of the chest. Views: 2 views. COMPARISON: CR XR PORTABLE CHEST AP 09/21/2024 3:18 PM FINDINGS: Tubes, catheters and devices: There is a cardiac defibrillator device implanted in the upper left lateral abdominal wall with an associated lead in the presternal subcutaneous soft tissue. Lungs: No pulmonary consolidation is seen. Pleural spaces: No pleural effusion or pneumothorax is demonstrated. Heart/Mediastinum: The heart appears normal in size. Bones/joints: The visualized bony structures appear grossly intact. There are osteophytes along the thoracic spinal margin. IMPRESSION: No active disease is seen in the chest. Dictated and Authenticated by: Chilo Dobson MD. Orderin Calli Lisa MD
[2025-04-16 19:24] LABS: Lab Add On Test DONE
[2025-04-16 19:35] LABS: Salicylate < 2.8 mg/dL (<2.8)
[2025-04-16 19:36] LABS: Acetaminophen < 2 ug/mL (10-30)
[2025-04-16 19:42] LABS: Troponin I 4 ng/L (<or=51)
[2025-04-16] MEDS: Fluorescein STRIPS 100/BOX 1 MG OP (21:11)
[2025-04-16] MEDS: Fluorescein STRIPS 100/BOX 1 MG (21:12)
[2025-04-16] MEDS: Mylanta Suspension 30 ML CUP (21:12)
[2025-04-16] MEDS: Lidocaine 2% Viscous 15 ML CUP (21:12)
[2025-04-16] MEDS: Ciprofloxacin 0.3% 2.5 ML BTL OS (21:33)
--- NOTE | 2025-04-19 07:05 | NUR.NOTE ---
Access chart to reconcile EKG's in [facility] with EKG orders in [facility]. Duplicate order cancelled. Nursing Note:
== END 2025-04-16 23:00 | disposition home or self-care (01) ==
PROVIDERS: Emergency Provider Nurse Practitioner Family; PCP Family Medicine
DX: G43.809 Other migraine, not intractable, without status migrainosus (principal); E11.9 Type 2 diabetes mellitus without complications; I25.10 Atherosclerotic heart disease of native coronary artery without angina pectoris; E78.5 Hyperlipidemia, unspecified; Z79.82 Long term (current) use of aspirin; Z95.810 Presence of automatic (implantable) cardiac defibrillator; Z79.84 Long term (current) use of oral hypoglycemic drugs; Z87.891 Personal history of nicotine dependence
CPT/HCPCS: 80053; 80307; 82805; 82962; 87637; 93005; 99285; 70450; 71046; 80320; 80329; 81003; 83735; 84443; 84484; 85025; 93010; 99284

== ENCOUNTER → 2025-05-09 12:54 | Outpatient (BNVA) | payer MEDICARE, MEDICAID, SELFPAY | PROVIDERS: PCP Family Medicine; Referring Provider Family Medicine; Visit Provider Psychiatry & Neurology Neurology | DX: R40.4 Transient alteration of awareness (principal); G44.40 Drug-induced headache, not elsewhere classified, not intractable; G43.709 Chronic migraine without aura, not intractable, without status migrainosus; F07.81 Postconcussional syndrome; G47.00 Insomnia, unspecified | CPT/HCPCS: 99215 ==

== ENCOUNTER 2025-05-16 13:42 | Observation (INO) | payer MEDICARE, MEDICAID, SELFPAY ==
[2025-05-16] VITALS (15 sets, daily range): BP systolic 107–136; BP diastolic 60–77; PULSE 74–98; RESP 15–31; TEMP 36.4–36.7; O2SAT 94–100
--- NOTE | 2025-05-16 14:00 | DI.CT_ITS ---
Exam(s) CT HEAD WO EXAM: CT HEAD WO CLINICAL HISTORY: confusion. TECHNIQUE: Imaging Protocol: Axial computed tomography images with coronal and sagittal reformatted images were created and reviewed COMPARISON: CT CT HEAD WO from 04/16/2025 FINDINGS: Ventricles and Extra axial spaces: Normal in size and morphology for the patient's age. Hemorrhage: None. Cerebral parenchyma: There is no evidence of an acute territorial infarct or mass effect. Midline shift: None. Brainstem/Cerebellum: Normal. Calvarium: Normal. Visualized Paranasal sinuses/Mastoids: Clear. Soft Tissues: Unremarkable. IMPRESSION: No acute intracranial process. RADIATION DOSE DELIVERED: 892.14mGy.cm Total DLP DATA REPOSITORY: All CT scans at this facility are submitted to the National Radiology Data Registry (NRDR) Dose Index Registry (DIR) with the [employer] (ACR). RADIATION OPTIMIZATION: All CT scans at this facility use at least one of these dose optimization techniques: automated exposure control; mA and/or kV adjustment per patient size (includes targeted exams where dose is matched to clinical indication); or iterative reconstruction.
[2025-05-16 14:15] LABS: Abs Immature Grans 0.01 10^3/uL (0.0-0.06); Absolute Basophil Count 0.03 10^3/uL (0.0-0.2); Absolute Eosinophil Count 0.08 10^3/uL (0.0-0.7); Absolute Lymphocyte Count 1.68 10^3/uL (1.2-3.4); Absolute Monocyte Count 0.35 10^3/uL (0.1-0.8); Absolute Neutrophil Count 3.76 10^3/uL (1.2-6.7); Basophils % 0.5 %; Eosinophils % 1.4 %; HCT 44.4 % (36.0-46.0); HGB 14.9 g/dL (11.2-15.7); Immature Grans % 0.2 %; Lymphocytes % 28.4 %; MCH 29.9 pg (27.0-33.0); MCHC 33.6 % (32.0-36.0); MCV 89 fL (80-95); MPV 9.7 fL (8.0-11.0); Monocytes % 5.9 %; Neutrophils % 63.6 %; Platelet Count 177 10^3/uL (130-400); RBC 4.98 10^6/uL (3.93-5.22); RDW 12.9 % (11.7-14.6); RDW-SD 42.2 fL; WBC 5.91 10^3/uL (4.4-10.8)
--- NOTE | 2025-05-16 14:15 | RT.EKG_ITS ---
APPROVED REPORT Exam: Resting ECG Reason for Exam: confusion, OD Patient Location: E HR:82 bpm ECG Measurements Heart Rate 82 AXIS AL 169 P 22 QRSd 89 QRS -14 QT 422 T 35 QTc 492 Conclusion Sinus rhythm...normal P axis, V-rate 60- 99 Low voltage, extremity and precordial leads...extremity<0.5mV, precordial<1.0mV Anteroseptal infarct, old...Q >40mS, V1-V2 No Occlusion MN
--- NOTE | 2025-05-16 14:19 | W.ED.GENAD ---
Discharge Plan Disposition Patient Disposition: Admit to [facility] Condition: Improving Discharge Details Clinical Impression: Anticholinergic crisis Primary Care Provider: Edie Ellis ED Provider: Sherrie Apodaca [place] Meds and New Rx's Prescriptions: No Action clonazepam 1 mg tablet 0.5 mg PO BID PRN Patient Comments: decreased to 0.5mg BID per pt melatonin 10 mg tablet 10 mg PO HS PRN loratadine 10 mg capsule 10 mg PO DAILY mirabegron [Myrbetriq] 25 mg tablet extended release 24 hr 25 mg PO Q24H Patient Comments: TAKE ONE TABLET BY MOUTH EVERY DAY gabapentin 100 mg capsule 100 mg PO DAILY Aimovig Autoinjector 140 mg/mL auto-injector 140 mg subcut QMONTH Qty: 1 11RF cholecalciferol (vitamin D3) 50 mcg (2,000 unit) capsule 50 mcg PO DAILY naratriptan 2.5 mg tablet 2.5 mg PO BID PRN polyethylene glycol 3350 17 gram/dose Powder 17 g PO DAILY PRN cyanocobalamin (vitamin B-12) 1,000 mcg tablet 1,000 mcg PO DAILY Patient Comments: TAKE ONE TABLET BY MOUTH EVERY DAY dapagliflozin propanediol [Farxiga] 5 mg tablet 5 mg PO QPM Patient Comments: Take 1 tablet by mouth once a day Entresto 97-103 mg tablet 1 tab PO BID Patient Comments: TAKE ONE TABLET BY MOUTH TWICE A DAY hydroxyzine HCl 25 mg tablet 25 mg PO TID PRN Patient Comments: TAKE ONE TABLET BY MOUTH THREE TIMES A DAY NEEDED FOR ANXIETY L-Carnitine 500 mg tablet 1,000 mg PO BID Patient Comments: TAKE TWO TABLETS BY MOUTH EVERY DAY magnesium oxide 400 MG tablet See Rx Instructions PO HS Patient Comments: 400mg AM, 800mg HS per pt Rx Instructions: 400mg in AM, 800mg HS orally bedtime; docusate sodium [Colace] 100 mg capsule 100 mg PO DAILY PRN Patient Comments: PRN per pt hydrocortisone 2.5 % cream 1 applic topical QID PRN Trintellix 20 mg tablet 0.5 ea PO DAILY Qty: 30 0RF omeprazole 20 mg Capsule,Delayed Release(Dr/Ec) 20 mg PO DAILY prochlorperazine maleate 10 mg Tablet 10 mg PO DAILY PRN (Reason: Headache) albuterol sulfate [Ventolin HFA] 90 mcg/actuation Hfa Aerosol Inhaler 2 puff INHALATION QID PRN naloxone [Narcan] 4 mg/actuation [place],Non-Aerosol 1 spray INTRANASAL ONCE PRN Patient Comments: Never used. aspirin 81 mg tablet,delayed release (DR/EC) 81 mg PO DAILY Qty: 14 0RF Rx Instructions: Take 1 daily with a meal for 30 days estradiol 1 mg tablet See Rx Instructions .ROUTE .COMPLEX Patient Comments: TAKE 1 TABLET BY MOUTH EVERY MORNING THEN 1.5 TABLETS EVERY EVENING Rx Instructions: --> 1mg qAM and 1.5m,g qPM acetaminophen 500 mg capsule 1,000 mg PO Q8H PRN PRNQty: 30 0RF lamotrigine 200 mg tablet 200 mg PO BID naproxen 500 mg tablet 500 mg PO BID PRN rosuvastatin 10 mg tablet 10 mg PO HS Patient Comments: TAKE ONE TABLET BY MOUTH AT BEDTIME riboflavin (vitamin B2) [Vitamin B-2] 100 mg tablet 200 mg PO BID Patient Comments: TAKE TWO TABLETS BY MOUTH EVERY DAY TWO TIMES A DAY paroxetine HCl 40 mg tablet 40 mg PO DAILY Patient Comments: TAKE ONE TABLET BY MOUTH EVERY DAY hydromorphone 4 mg tablet 4 mg PO BID Patient Comments: TAKE ONE TABLET BY MOUTH TWICE A DAY FOR PAIN Trulicity 3 mg/0.5 mL pen injector 1.5 mg SUBCUT QWEEK Patient Comments: INJECT 3MG UNDER THE SKIN ONCE WEEKLY on THURSDAY bupropion HCl 450 mg tablet extended release 24 hr 450 mg PO ONCE Patient Comments: TAKE ONE TABLET BY MOUTH EVERY DAY scopolamine base 1 mg over 3 days patch 3 day 1 patch transdermal Q48H Patient Comments: APPLY ONE PATCH TO THE SKIN EVERY OTHER DAY Trintellix 20 mg tablet 20 mg PO DAILY Patient Comments: TAKE ONE TABLET BY MOUTH EVERY DAY HPI General Date/Time Provider Initiated Documentation: 05/16/25 13:46. Limitations to Documentation: altered mental status. Information obtained by: patient, family () and RN notes reviewed. History of Present Illness 49 year old F presents to the emergency department with the chief complaint of confusion, hallucinations, described as severe, Patient started experiencing this hour(s) and it has been constant. No relieving factors improve symptom(s), No exacerbating factors reported . Patient notes confusion, malaise and weakness (patient feels generally weak but no focal deficits); denies chest pain, diaphoresis, fever/chills, headaches, nausea/vomiting, rash, seizure, shortness of breath and syncope. Related Data Home Medications ?Medication ?Instructions ?Recorded ?Confirmed albuterol sulfate 90 mcg/actuation 2 puff inhalation QID PRN 03/10/19 05/16/25 aerosol inhaler (Ventolin HFA) naloxone 4 mg/actuation nasal 1 spray intranasal ONCE PRN 03/10/19 05/16/25 spray (Narcan) omeprazole 20 mg capsule,delayed 20 mg PO DAILY 03/10/19 05/16/25 release prochlorperazine maleate 10 mg 10 mg PO DAILY PRN Headache 03/10/19 05/16/25 tablet aspirin 81 mg tablet,delayed 81 mg PO DAILY Prevent blood clot 09/30/19 05/16/25 release #14 tabs polyethylene glycol 3350 17 17 g PO DAILY PRN 12/22/19 05/16/25 gram/dose oral powder naratriptan 2.5 mg tablet 2.5 mg PO BID PRN 03/27/20 05/16/25 estradiol 1 mg tablet See Rx Instructions .Route .COMPLEX 06/10/21 05/16/25 cholecalciferol (vitamin D3) 50 50 mcg PO DAILY 11/21/21 05/16/25 mcg (2,000 unit) capsule acetaminophen 500 mg capsule 1,000 mg (2 x 500 mg) PO Q8H PRN 05/13/22 05/16/25 PRN #30 caps clonazepam 1 mg tablet 0.5 mg PO BID PRN 11/14/22 05/16/25 melatonin 10 mg tablet 10 mg PO HS PRN 11/14/22 05/16/25 loratadine 10 mg capsule 10 mg PO DAILY 03/03/23 05/16/25 cyanocobalamin (vitamin B-12) 1,000 mcg PO DAILY 08/13/23 05/16/25 1,000 mcg tablet dapagliflozin propanediol 5 mg 5 mg PO QPM 08/13/23 05/16/25 tablet (Farxiga) sacubitril 97 mg-valsartan 103 mg 1 tab PO BID 08/13/23 05/16/25 tablet (Entresto) mirabegron 25 mg tablet,extended 25 mg PO Q24H 08/05/24 05/16/25 release 24 hr (Myrbetriq) hydromorphone 4 mg tablet 4 mg PO BID 08/15/24 05/16/25 lamotrigine 200 mg tablet 200 mg PO BID 08/15/24 05/16/25 naproxen 500 mg tablet 500 mg PO BID PRN 08/15/24 05/16/25 paroxetine HCl 40 mg tablet 40 mg PO DAILY 08/15/24 05/16/25 riboflavin (vitamin B2) 100 mg 200 mg PO BID 08/15/24 05/16/25 tablet (Vitamin B-2) rosuvastatin 10 mg tablet 10 mg PO HS 08/15/24 05/16/25 hydroxyzine HCl 25 mg tablet 25 mg PO TID PRN 09/21/24 05/16/25 docusate sodium 100 mg capsule 100 mg PO DAILY PRN 09/22/24 05/16/25 (Colace) hydrocortisone 2.5 % topical cream 1 applic topical QID PRN 09/22/24 05/16/25 levocarnitine 500 mg tablet 1,000 mg PO BID 09/22/24 05/16/25 (L-Carnitine) magnesium oxide 400 mg (241.3 mg See Rx Instructions PO HS 09/22/24 05/16/25 magnesium) tablet Trintellix 0.5 ea PO DAILY #30 tabs 09/23/24 05/16/25 bupropion HCl 450 mg 24 hr tablet, 450 mg PO ONCE 04/16/25 05/16/25 extended release dulaglutide 3 mg/0.5 mL 1.5 mg subcut QWEEK 05/09/25 05/16/25 subcutaneous pen injector (Trulicity) gabapentin 100 mg capsule 100 mg PO DAILY 05/09/25 05/16/25 erenumab-aooe 140 mg/mL 140 mg subcut QMONTH #1 mL 05/15/25 05/16/25 subcutaneous auto-injector (Aimovig Autoinjector) scopolamine base 1 mg over 3 days 1 patch transdermal Q48H 05/16/25 05/16/25 transdermal patch vortioxetine 20 mg tablet 20 mg PO DAILY 05/16/25 05/16/25 (Trintellix) Previous Rx's ?Medication ?Instructions ?Recorded aspirin 81 mg tablet,delayed 81 mg PO DAILY Prevent blood clot 11/08/19 release #14 tabs acetaminophen 500 mg capsule 1,000 mg (2 x 500 mg) PO Q8H PRN 05/13/22 PRN #30 caps Trintellix 0.5 ea PO DAILY #30 tabs 09/23/24 erenumab-aooe 140 mg/mL 140 mg subcut QMONTH #1 mL 05/15/25 subcutaneous auto-injector (Aimovig Autoinjector) Allergies Allergy/AdvReac Type Severity Reaction Status Date / Time Penicillins Allergy Severe throat Verified 05/09/25 12:57 closes Sulfa (Sulfonamide Allergy Mild Hives Verified 05/09/25 12:57 Antibiotics) General Stated Complaint: AMS/LOC RENATO: 2 Review of Systems Constitutional Constitutional: Reports as per HPI, Denies chills, Denies fever(s) and Denies headache(s) Eyes Eyes: Denies change in vision ENT Ears, Nose, Mouth, and Throat: Denies headache(s) Cardiovascular Cardiovascular: Reports as per HPI, Denies chest pain and Denies dyspnea Respiratory Respiratory: Reports as per HPI, Denies cough and Denies dyspnea Gastrointestinal Gastrointestinal: Reports as per HPI, Denies abdominal pain and Denies change in bowel habits Integumentary/Breasts Skin/Breast: Reports as per HPI and Denies rash Neurologic Neurologic: Denies abnormal movements, Denies abnormal speech and Denies headache(s) Exam Const General: cooperative, no acute distress, well developed, well groomed, in distress moderate (very anxious, moving frequently, tactile hallucinations, confused), anxious, not diaphoretic and ill appearing (confused) Nutritional Appearance: average body habitus and well nourished Orientation: alert and awake [facility] Head: normal to inspection, no palpable skull fracture, normocephalic and atraumatic Face and sinus: normal facial exam Mouth: mucous membranes dry (appears very dry), no drooling, No mouth trauma and no muffled voice Eyes General: appearance normal, both eyes and all related structures Pupils: pupil size (bilateral fixed) EOM: EOM intact bilaterally Resp Effort & Inspection: normal respiratory effort, able to speak in complete sentences and no respiratory distress Auscultation: clear to auscultation bilaterally, no rales, no rhonchi and no wheezes Cardio Rate: regular rate Rhythm: regular rhythm Heart Sounds: S1 normal and S2 normal GI Inspection: normal to inspection Palpation: soft, not firm, no guarding and nontender Skin General skin exam: no rashes or lesions noted Trauma: no lacerations or abrasions Neuro General: patient alert and patient awake Speech: speech normal Extrem General: normal to inspection Course Vital Signs Vital signs: Vital Signs Temperature 36.5 C 05/16/25 13:42 Pulse 98 H 05/16/25 13:42 Respiratory Rate 18 05/16/25 13:42 Blood Pressure 119/70 05/16/25 13:42 Pulse Oximetry 100 05/16/25 13:42 Temperature 36.5 C 05/16/25 13:47 Temperature Source Oral 05/16/25 13:47 Pulse 89 05/16/25 14:11 Respiratory Rate 16 05/16/25 14:13 Respiratory Effort Normal, Non-Labored 05/16/25 14:13 Respiratory Depth Normal 05/16/25 14:13 Respiratory Pattern Normal 05/16/25 14:13 Blood Pressure 119/70 05/16/25 13:47 Blood Pressure Position Supine 05/16/25 13:47 Pulse Oximetry 100 05/16/25 14:11 Oxygen Delivery Method Room Air 05/16/25 13:47 Oxygen Flow Rate 0 05/16/25 13:47 Pain Level 0 05/16/25 13:47 Lab/Test Results Lab/Test Results: Laboratory Tests Range/Units 05/16/25 14:07 WBC (4.4-10.8) 10^3/uL 5.91 RBC (3.93-5.22) 10^6/uL 4.98 Hgb (11.2-15.7) g/dL 14.9 Hct (36.0-46.0) % 44.4 MCV (80-95) fL 89 MCH (27.0-33.0) pg 29.9 MCHC (32.0-36.0) % 33.6 RDW (11.7-14.6) % 12.9 Plt Count (130-400) 10^3/uL 177 MPV (8.0-11.0) fL 9.7 Immature Gran % % 0.2 Neutrophils % % 63.6 Lymphocytes % % 28.4 Monocytes % % 5.9 Eosinophils % % 1.4 Basophils % % 0.5 Nucleated RBC % (0.0-0.3) % 0.0 Absolute Neutrophils (1.2-6.7) 10^3/uL 3.76 Absolute Lymphocytes (1.2-3.4) 10^3/uL 1.68 Absolute Monocytes (0.1-0.8) 10^3/uL 0.35 Absolute Eosinophils (0.0-0.7) 10^3/uL 0.08 Absolute Basophils (0.0-0.2) 10^3/uL 0.03 Medical Decision Making Patient presents via EMS with a chief complaint of shaking and confusion. Patient began having these symptoms along with delusional activity this morning. No trauma or injury. No headache. Patient did begin scopolamine last week as prescribed by primary care. However, patient does report that she added an extra patch yesterday currently has 2 on. While she feels she is not able to move well, she does not have any focal deficits, more of this global sensation along with confusion of where she is in time. She describes having previously seen a neurologist and being diagnosed with glitch and reports that this feels similar. No seizure disorder. Past medical history significant for pulmonary hypertension, type 2 diabetes, bipolar, cardiomyopathy, fatigue, hyperthyroid, anxiety, chronic pain, polycystic ovaries. She is followed by neurology for spells of altered consciousness which the neurologist describes as both epileptic and nonepileptic. Patient also has chronic paresthesias of the legs associated with opioid hypoalgesia. Patient does describe that both of her legs feel somewhat weak. History is difficult to obtain from the patient as she keeps trying to figure out where she is in space, time, reacting to tactile sensations that are not present and trying to convince me she is wearing a hat. Interestingly, patient is able to calm and answer my questions but then will quickly go into more rapid pressured confused speech. On exam, patient has confusion as noted above. She is moving all of her extremities although she does seem hesitant to do so. Normal cardiac and pulmonary exam. No shortness of breath. No recent fevers or chills. No nuchal rigidity. Abdomen is benign. She does have fairly fixed pupils. She also appears very dry on exam, particularly the mucous membranes. Patient denies any purposeful overdoses side placing the extra scopolamine patch. She denies suicidality. Concerned for anticholinergic toxicity. 2 Scopolamine were removed, she said she added extra yesterday. She appears dry, will give fluids. With the agitations, will give benzos. Spoke with Poison Control. they advised liekly toxicity as noted. Advised possible QRS prolongation. Anything over 120, advised sodium bicarb 2-3amps and repeating EKG. ECG obtained and reviewed by Dr. Sims. QRS 89. No need for bicarb at this point. Labs reviewed, no significant abnormality. No leukocytosis, anemia. CMP WNL. Troponin WNL x 2. No ETOH, APAP or salicylates. CT reviewed by radiologist, no acute abnormality. 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 Based on the half-life of the scopolamine, recommend admission for observation, possible readministration of further benzodiazepines. I consulted with the hospitalist, Dr. Lucas, who is in agreement with this plan. Patient is also in agreement this plan. Quality:SDOH Health Related Social Needs: Health related social needs details Lives with and son. Her son is coming to get her. PFSH All Active Problems (Updated 05/16/25 @ 16:07 by ANNE Cool) Anticholinergic crisis (Acute) Atypical migraine (Acute) Insomnia (Acute) Post concussion syndrome (Acute) Migraine headache without aura (Acute 03/07/15) Chronic migraine (Acute 03/07/15) Medication overuse headache (Acute 03/07/15) Encephalopathy acute (Acute) Seizure (Acute) Contraindication to deep vein thrombosis (DVT) prophylaxis (Acute) Seizure (Acute) Intentional benzodiazepine overdose (Acute) Patellofemoral arthritis of left knee (Acute) Acute respiratory failure with hypoxia (Acute) Pulmonary edema (Acute) Acute respiratory distress (Acute) COVID-19 (Acute) Bilateral carpal tunnel syndrome (Acute) S/P R ECTR: 05/13/2022 Amplified musculoskeletal pain (Acute) Tendonitis of long head of biceps brachii of right shoulder (Acute) Bursitis of right shoulder (Acute) Traumatic tear of right rotator cuff (Acute) Calcific tendinitis of right shoulder (Acute) 40mg depo-medrol injection: 02/11/2022 Lateral epicondylitis of right elbow (Acute) 40mg depo-medrol injection: 02/11/2022 Hematest positive stools (Acute) 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 (Acute 01/25/14) Atypical chest pain (Acute) Palpitations (Acute) Spell of altered consciousness (Acute) Elevated brain natriuretic peptide (BNP) level (Acute) Chest pain (Acute) Screening for colon cancer (Acute) Tobacco use (Acute) Fecal occult blood test positive (Acute) Medical History Chronic back pain Pulmonary hypertension Type 2 diabetes mellitus Bipolar disorder Cardiomyopathy last echocardiogram 01/27/2019, LVEF 50-55%, no regional wall motion abnormalities, mild LVH, mild MR; normal RV size and function Knee abrasion Myalgia Urinary incontinence Fatigue Shortness of breath Dizziness, nonspecific Orthostasis Elbow fracture, right Hyperthyroidism Carpal tunnel syndrome, left Impingement syndrome of left shoulder (~03/2019) Left rotator cuff tear (~03/2019) Tendinitis of long head of biceps brachii of left shoulder (~03/2019) Bursitis of left shoulder (~03/2019) Cervical radiculopathy bilateral Acute kidney injury DVT prophylaxis Discharge planning issues Dyspnea control (01/25/14) Dehydration Suicidal ideation Change in mental status Tachycardia Splenomegaly Lactose intolerance Hyperlipidemia Depression Anxiety Chronic pain syndrome CAD (coronary artery disease) mild non-obstructive disease [place] [facility] [place] more recent repeat cath unchanged but with pulmonary HTN Morbid obesity Diabetes Polycystic ovaries Surgical History S/P hysterectomy History of arthroscopy of left shoulder Hx of cardiac catheterization 08/2021-no stent placed History of endometrial ablation History of section x2 Previous back surgery Social History Smoking/Tobacco Use Status: Former Tobacco Use Quit status: quit date established Smoking risk assessment performed?: Yes Alcohol Intake: never Drug use: Never Substance use type: does not use Housing: apartment Number of Children: 3 current occupation: Disabled Current gender identity: female What is your relationship status?: Panel score (0-1 are the most socially isolated patients): 0 What type of physical activity do you participate in: none Do you feel safe at home: Yes Do you feel safe in your relationship?: Yes Female Reproductive History Menstrual control method: permanent sterilization
[2025-05-16] MEDS: Normal Saline 1,000 ML 1000 ML IV (14:20)
[2025-05-16 14:46] LABS: ETHANOL BLOOD < 3.0 mg/dL (<10)
[2025-05-16 14:47] LABS: ALT 24 U/L (14-59); AST 19 U/L (15-37); Albumin 3.4 g/dL (3.4-5.0); Alkaline Phosphatase 57 U/L (46-116); Anion Gap 9.8 mmol/L (3-11); BUN 11 mg/dL (7-18); Bilirubin, Total 0.4 mg/dL (0.2-1.0); CO2 26.2 mmol/L (21.0-32.0); CREATININE 0.8 mg/dL (0.55-1.02); Calcium 8.6 mg/dL (8.5-10.1); Chloride 106 mmol/L (98-107); Estimated GFR 90.27 (mL/min/1.73m2); Glucose 105 mg/dL (74-106); Magnesium 1.9 mg/dL (1.8-2.4); Potassium 3.9 mmol/L (3.5-5.1); Salicylate < 2.8 mg/dL (<2.8); Sodium 142 mmol/L (136-145); Total Protein 6.5 g/dL (6.4-8.2)
[2025-05-16 14:50] LABS: Troponin I < 4 ng/L (<or=51)
[2025-05-16 14:51] LABS: Acetaminophen < 2 ug/mL (10-30)
[2025-05-16] MEDS: Lactated Ringers 1,000 ML 1000 ML IV (15:13)
[2025-05-16] MEDS: Midazolam 2 MG/2 ML VIAL IVP (15:13)
[2025-05-16 15:30] LABS: Troponin I 4 ng/L (<or=51)
--- NOTE | 2025-05-16 15:47 | W.PM.HP.N ---
Date of service: 05/16/25 Time of Service: 16:00 Assessment and Plan Assessment and plan (1) Anticholinergic drug overdose: Status: Acute Assessment and plan: Symptoms meeting criteria w findings of multiple patches of scopolamine on as patient as being using more than ordered This could also be seizure activity but will address working Dx of anticholinergic toxicity IVF tele benzo for agitation Bicarb for QRS> 120 ms and repeat EKG (2) Encephalopathy acute: Status: Acute Assessment and plan: Most likely d/t above as above (3) Atypical migraine: Status: Acute Assessment and plan: continue home meds (4) Insomnia: Status: Acute Assessment and plan: melatonin at HS (5) Seizure: Status: Acute Assessment and plan: continue home meds Lovenox for DVT prophylaxis History of Present Illness History of Present Illness Chief Complaint: AMS, hallucinations Narrative: This 49 years old female patient with a past medical history of seizure disorder, pulmonary hypertension, past intentional benzodiazepine overdose, CAD, diabetes, bipolar,chronic paresthesias of the legs associated with opioid hypoalgesia, cardiomyopathy, fatigue, hyperthyroid, anxiety, chronic pain, polycystic ovaries presented to the ED at [facility] for evaluation of confusion, hallucinations.the patient is followed by neurology for spells of altered consciousness which the neurologist describes as both epileptic and nonepileptic. Patient reported adjusting her scopolamine patch dosing up yesterday, she denied chest pain, diaphoresis, fever/chills, headaches, nausea/vomiting, rash, seizure, shortness of breath and syncope, reported tremors, confusion, malaise and weakness, dry mouth, daily vomiting. Patient found to have 2 scopolamine patches on by RN. Head CT was negative for intracranial process.UDS positive for benzos and opiates, labs otherwise unremarkable. S/p consultation with poison control recommendation made for benzodazepines for agitation, sodium bicarbonate 2-3 amps for QRS prolongation>120 ms with f/u EKG;EKG in the Ed showed a QRS of 89 ms.. The patient was admitted to the medical surgical floor for anticholinergic toxicity by the hospitalist team. Full code status confirmed. Review of Systems All systems reviewed & are unremarkable except as noted in HPI and below PFSH All Active Problems (Updated 05/16/25 @ 18:34 by Diane Blas APRN) Anticholinergic drug overdose (Acute) Anticholinergic crisis (Acute) Atypical migraine (Acute) Insomnia (Acute) Post concussion syndrome (Acute) Migraine headache without aura (Acute 03/07/15) Chronic migraine (Acute 03/07/15) Medication overuse headache (Acute 03/07/15) Encephalopathy acute (Acute) Seizure (Acute) Contraindication to deep vein thrombosis (DVT) prophylaxis (Acute) Seizure (Acute) Intentional benzodiazepine overdose (Acute) Patellofemoral arthritis of left knee (Acute) Acute respiratory failure with hypoxia (Acute) Pulmonary edema (Acute) Acute respiratory distress (Acute) COVID-19 (Acute) Bilateral carpal tunnel syndrome (Acute) S/P R ECTR: 05/13/2022 Amplified musculoskeletal pain (Acute) Tendonitis of long head of biceps brachii of right shoulder (Acute) Bursitis of right shoulder (Acute) Traumatic tear of right rotator cuff (Acute) Calcific tendinitis of right shoulder (Acute) 40mg depo-medrol injection: 02/11/2022 Lateral epicondylitis of right elbow (Acute) 40mg depo-medrol injection: 02/11/2022 Hematest positive stools (Acute) 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 (Acute 01/25/14) Atypical chest pain (Acute) Palpitations (Acute) Spell of altered consciousness (Acute) Elevated brain natriuretic peptide (BNP) level (Acute) Chest pain (Acute) Screening for colon cancer (Acute) Tobacco use (Acute) Fecal occult blood test positive (Acute) Medical History Chronic back pain Pulmonary hypertension Type 2 diabetes mellitus Bipolar disorder Cardiomyopathy last echocardiogram 01/27/2019, LVEF 50-55%, no regional wall motion abnormalities, mild LVH, mild MR; normal RV size and function Knee abrasion Myalgia Urinary incontinence Fatigue Shortness of breath Dizziness, nonspecific Orthostasis Elbow fracture, right Hyperthyroidism Carpal tunnel syndrome, left Impingement syndrome of left shoulder (~03/2019) Left rotator cuff tear (~03/2019) Tendinitis of long head of biceps brachii of left shoulder (~03/2019) Bursitis of left shoulder (~03/2019) Cervical radiculopathy bilateral Acute kidney injury DVT prophylaxis Discharge planning issues Dyspnea control (01/25/14) Dehydration Suicidal ideation Change in mental status Tachycardia Splenomegaly Lactose intolerance Hyperlipidemia Depression Anxiety Chronic pain syndrome CAD (coronary artery disease) mild non-obstructive disease per cardiac cath report from [facility] [place] 09/07/2013, more recent repeat cath unchanged but with pulmonary HTN Morbid obesity Diabetes Polycystic ovaries Surgical History S/P hysterectomy History of arthroscopy of left shoulder Hx of cardiac catheterization 08/2021-no stent placed History of endometrial ablation History of section x2 Previous back surgery Social History Smoking/Tobacco Use Status: Former Tobacco Use Quit status: quit date established Smoking risk assessment performed?: Yes Alcohol Intake: never Drug use: Never Substance use type: does not use Housing: apartment Number of Children: 3 current occupation: Disabled Current gender identity: female What is your relationship status?: Panel score (0-1 are the most socially isolated patients): 0 What type of physical activity do you participate in: none Do you feel safe at home: Yes Do you feel safe in your relationship?: Yes Female Reproductive History Menstrual control method: permanent sterilization Meds Allergies and Home Medications Allergies Allergy/AdvReac Type Severity Reaction Status Date / Time Penicillins Allergy Severe throat Verified 05/09/25 12:57 closes Sulfa (Sulfonamide Allergy Mild Hives Verified 05/09/25 12:57 Antibiotics) Home Medications ?Medication ?Instructions ?Recorded ?Confirmed ?Type albuterol sulfate 90 mcg/actuation 2 puff inhalation QID PRN 03/10/19 05/16/25 History aerosol inhaler (Ventolin HFA) naloxone 4 mg/actuation nasal 1 spray intranasal ONCE PRN 03/10/19 05/16/25 History spray (Narcan) omeprazole 20 mg capsule,delayed 20 mg PO DAILY 03/10/19 05/16/25 History release prochlorperazine maleate 10 mg 10 mg PO DAILY PRN Headache 03/10/19 05/16/25 History tablet aspirin 81 mg tablet,delayed 81 mg PO DAILY Prevent blood clot 09/30/19 05/16/25 Rx release #14 tabs polyethylene glycol 3350 17 17 g PO DAILY PRN 12/22/19 05/16/25 History gram/dose oral powder naratriptan 2.5 mg tablet 2.5 mg PO BID PRN 03/27/20 05/16/25 History estradiol 1 mg tablet See Rx Instructions .Route .COMPLEX 06/10/21 05/16/25 History cholecalciferol (vitamin D3) 50 50 mcg PO DAILY 11/21/21 05/16/25 History mcg (2,000 unit) capsule acetaminophen 500 mg capsule 1,000 mg (2 x 500 mg) PO Q8H PRN 05/13/22 05/16/25 Rx PRN #30 caps clonazepam 1 mg tablet 0.5 mg PO BID PRN 11/14/22 05/16/25 History melatonin 10 mg tablet 10 mg PO HS PRN 11/14/22 05/16/25 History loratadine 10 mg capsule 10 mg PO DAILY 03/03/23 05/16/25 History cyanocobalamin (vitamin B-12) 1,000 mcg PO DAILY 08/13/23 05/16/25 History 1,000 mcg tablet dapagliflozin propanediol 5 mg 5 mg PO QPM 08/13/23 05/16/25 History tablet (Farxiga) sacubitril 97 mg-valsartan 103 mg 1 tab PO BID 08/13/23 05/16/25 History tablet (Entresto) mirabegron 25 mg tablet,extended 25 mg PO Q24H 08/05/24 05/16/25 History release 24 hr (Myrbetriq) hydromorphone 4 mg tablet 4 mg PO BID 08/15/24 05/16/25 History lamotrigine 200 mg tablet 200 mg PO BID 08/15/24 05/16/25 History naproxen 500 mg tablet 500 mg PO BID PRN 08/15/24 05/16/25 History paroxetine HCl 40 mg tablet 40 mg PO DAILY 08/15/24 05/16/25 History riboflavin (vitamin B2) 100 mg 200 mg PO BID 08/15/24 05/16/25 History tablet (Vitamin B-2) rosuvastatin 10 mg tablet 10 mg PO HS 08/15/24 05/16/25 History hydroxyzine HCl 25 mg tablet 25 mg PO TID PRN 09/21/24 05/16/25 History docusate sodium 100 mg capsule 100 mg PO DAILY PRN 09/22/24 05/16/25 History (Colace) hydrocortisone 2.5 % topical cream 1 applic topical QID PRN 09/22/24 05/16/25 History levocarnitine 500 mg tablet 1,000 mg PO DAILY 09/22/24 05/16/25 History (L-Carnitine) magnesium oxide 400 mg (241.3 mg See Rx Instructions PO HS 09/22/24 05/16/25 History magnesium) tablet bupropion HCl 450 mg 24 hr tablet, 450 mg PO ONCE 04/16/25 05/16/25 History extended release dulaglutide 3 mg/0.5 mL 1.5 mg subcut QWEEK 05/09/25 05/16/25 History subcutaneous pen injector (Trulicity) gabapentin 100 mg capsule 100 mg PO DAILY 05/09/25 05/16/25 History erenumab-aooe 140 mg/mL 140 mg subcut QMONTH #1 mL 05/15/25 05/16/25 Rx subcutaneous auto-injector (Aimovig Autoinjector) scopolamine base 1 mg over 3 days 1 patch transdermal Q48H 05/16/25 05/16/25 History transdermal patch vortioxetine 10 mg tablet 10 mg PO DAILY 05/16/25 05/16/25 History (Trintellix) vortioxetine 20 mg tablet 20 mg PO DAILY 05/16/25 05/16/25 History (Trintellix) Exam Narrative Exam Narrative: Within the full female appearing of stated age with dry mucous membranes no flushing skin cool to the touch, PERRLA 5 brisk, awake alert oriented x 3 no focal deficit, clear lungs, S1-S2 regular, abdomen is nondistended soft nontender bowel sounds are present no bladder distention moves all 4 extremities Results Labs 05/16/25 14:07 05/16/25 14:07 Labs: Laboratory Results - last 24 hr 05/16/25 05/16/25 14:07 15:05 WBC 5.91 RBC 4.98 Hgb 14.9 Hct 44.4 MCV 89 MCH 29.9 MCHC 33.6 RDW 12.9 Plt Count 177 MPV 9.7 Immature Gran % 0.2 Neutrophils % 63.6 Lymphocytes % 28.4 Monocytes % 5.9 Eosinophils % 1.4 Basophils % 0.5 Nucleated RBC % 0.0 Absolute Neutrophils 3.76 Absolute Lymphocytes 1.68 Absolute Monocytes 0.35 Absolute Eosinophils 0.08 Absolute Basophils 0.03 Sodium 142 Potassium 3.9 Chloride 106 Carbon Dioxide 26.2 Anion Gap 9.8 BUN 11 Creatinine 0.8 Est GFR (CKD-EPI 2020) 90.27 Glucose 105 Calcium 8.6 Magnesium 1.9 Total Bilirubin 0.4 AST 19 ALT 24 Alkaline Phosphatase 57 Troponin I < 4 4 Total Protein 6.5 Albumin 3.4 Salicylates < 2.8 Acetaminophen < 2 Ethyl Alcohol < 3.0 Last Vital Signs Temp 36.5 C 05/16/25 13:47 Pulse 83 05/16/25 14:51 Resp 25 H 05/16/25 14:51 BP 111/67 05/16/25 14:31 Pulse Ox 94 05/16/25 14:51 Time Spent Time spent with Patient: >75 minutes Time was spent: preparing to see the patient(eg.review tests), obtaining and/or reviewing separately otained hiistory, ordering medications,tests, procedures, referring, communicating with other health before and after school daycare worker, indepentently interpreting results, counseling the patient and care coordination
[2025-05-16 17:25] LABS: Bilirubin Negative (Negative); Blood Negative (Negative); Clarity Clear (Clear); Glucose 500 mg/dL (Negative); Ketones 40 mg/dL (Negative); Leukocyte Esterase Negative (Negative); Nitrite Negative (Negative); Urobilinogen 0.2 mg/dL (Up to 0.2); pH 8.5 (5-8)
--- NOTE | 2025-05-16 17:39 | W.PC.ACHO ---
Registration Status: ADM ALEX Primary Language: Preferred Language: Tamaz[place] ED Information & Data Chief Complaint AMS/LOC 05/16/25 14:23 Triage Note Pt brought in by EMS for 05/16/25 13:42 seizure activity- reports no activity noted- pt not answering any questions but continues to repeat words such as stroke- follows commands for getting an oral temperature Medical / Surgical History (Last Reviewed 05/09/25 @ 13:07 by Nat Eason MD) Chronic back pain Pulmonary hypertension Type 2 diabetes mellitus Bipolar disorder Cardiomyopathy Knee abrasion Myalgia Urinary incontinence Fatigue Shortness of breath Dizziness, nonspecific Orthostasis Elbow fracture, right Hyperthyroidism Carpal tunnel syndrome, left Impingement syndrome of left shoulder (~03/2019) Left rotator cuff tear (~03/2019) Tendinitis of long head of biceps brachii of left shoulder (~03/2019) Bursitis of left shoulder (~03/2019) Cervical radiculopathy Acute kidney injury DVT prophylaxis Discharge planning issues Dyspnea control (01/25/14) Dehydration Suicidal ideation Change in mental status Tachycardia Splenomegaly Lactose intolerance Hyperlipidemia Depression Anxiety Chronic pain syndrome CAD (coronary artery disease) Morbid obesity Diabetes Polycystic ovaries (Last Reviewed 05/09/25 @ 13:07 by Nat Eason MD) S/P hysterectomy History of arthroscopy of left shoulder Hx of cardiac catheterization History of endometrial ablation History of section Previous back surgery Most Recent Vital Signs Temperature 36.5 C 05/16/25 17:29 Temperature Source Temporal Artery Scan 05/16/25 17:29 Pulse 81 05/16/25 17:29 Pulse 85 05/16/25 14:51 Respiratory Rate 15 05/16/25 17:29 Respiratory Effort Normal, Non-Labored 05/16/25 14:13 Respiratory Depth Normal 05/16/25 14:13 Respiratory Pattern Normal 05/16/25 14:13 Blood Pressure 114/77 05/16/25 17:29 Blood Pressure Mean 89 05/16/25 17:29 Blood Pressure Position Supine 05/16/25 13:47 Pulse Oximetry 99 05/16/25 17:29 Oxygen Delivery Method Room Air 05/16/25 17:29 Oxygen Flow Rate 0 05/16/25 17:29 Pain Level 9 05/16/25 17:29 Allergies Penicillins Allergy (Severe, Verified 05/09/25 12:57) throat closes Sulfa (Sulfonamide Antibiotics) Allergy (Mild, Verified 05/09/25 12:57) Hives Precautions Isolation Standard precaution 05/16/25 14:13 IV IV Catheter Type [Left Peripheral IV Antecubital] IV Catheter Gauge [Left 20 Antecubital] Diet Orders Category Date Time Status Diabetes Consistent CHO/Heart Healthy [DIET] Nutrition 05/16/25 Dinner Active Diagnostics 05/16/25 05/16/25 05/16/25 Range/Units 17:16 17:03 15:05 WBC (4.4-10.8) 10^3/uL RBC (3.93-5.22) 10^6/uL Hgb (11.2-15.7) g/dL Hct (36.0-46.0) % MCV (80-95) fL MCH (27.0-33.0) pg MCHC (32.0-36.0) % RDW (11.7-14.6) % Plt Count (130-400) 10^3/uL MPV (8.0-11.0) fL Immature Gran % % Neutrophils % % Lymphocytes % % Monocytes % % Eosinophils % % Basophils % % Nucleated RBC % (0.0-0.3) % Absolute Neutrophils (1.2-6.7) 10^3/uL Absolute Lymphocytes (1.2-3.4) 10^3/uL Absolute Monocytes (0.1-0.8) 10^3/uL Absolute Eosinophils (0.0-0.7) 10^3/uL Absolute Basophils (0.0-0.2) 10^3/uL Sodium (136-145) mmol/L Potassium (3.5-5.1) mmol/L Chloride (98-107) mmol/L Carbon Dioxide (21.0-32.0) mmol/L Anion Gap (3-11) mmol/L BUN (7-18) mg/dL Creatinine (0.55-1.02) mg/dL Est GFR (CKD-EPI 2020) (mL/min/1.73m2) Glucose (74-106) mg/dL Calcium (8.5-10.1) mg/dL Magnesium (1.8-2.4) mg/dL Total Bilirubin (0.2-1.0) mg/dL AST (15-37) U/L ALT (14-59) U/L Alkaline Phosphatase (46-116) U/L Troponin I Pending 4 (<or=51) ng/L Total Protein (6.4-8.2) g/dL Albumin (3.4-5.0) g/dL Urine Color Yellow (Yellow) Urine Clarity Clear (Clear) Urine pH 8.5 H (5-8) Ur Specific [place] 1.020 (1.005-1.025) Urine Protein Negative (Neg-Trace) mg/dL Urine Ketones 40 H (Negative) mg/dL Urine Blood Negative (Negative) Urine Nitrite Negative (Negative) Urine Bilirubin Negative (Negative) Urine Urobilinogen 0.2 (Up to 0.2) mg/dL Ur Leukocyte Esterase Negative (Negative) Urine Glucose 500 H (Negative) mg/dL Salicylates (<2.8) mg/dL Urine Opiates Screen Pending Acetaminophen (10-30) ug/mL Ur Barbiturates Screen Pending Ur Tricyclics Screen Pending Ur Amphetamines Screen Pending U Benzodiazepines Scrn Pending Urine Cocaine Screen Pending Ur THC Screen Pending Ethyl Alcohol (<10) mg/dL /24/25 Range/Units 14:07 WBC 5.91 (4.4-10.8) 10^3/uL RBC 4.98 (3.93-5.22) 10^6/uL Hgb 14.9 (11.2-15.7) g/dL Hct 44.4 (36.0-46.0) % MCV 89 (80-95) fL MCH 29.9 (27.0-33.0) pg MCHC 33.6 (32.0-36.0) % RDW 12.9 (11.7-14.6) % Plt Count 177 (130-400) 10^3/uL MPV 9.7 (8.0-11.0) fL Immature Gran % 0.2 % Neutrophils % 63.6 % Lymphocytes % 28.4 % Monocytes % 5.9 % Eosinophils % 1.4 % Basophils % 0.5 % Nucleated RBC % 0.0 (0.0-0.3) % Absolute Neutrophils 3.76 (1.2-6.7) 10^3/uL Absolute Lymphocytes 1.68 (1.2-3.4) 10^3/uL Absolute Monocytes 0.35 (0.1-0.8) 10^3/uL Absolute Eosinophils 0.08 (0.0-0.7) 10^3/uL Absolute Basophils 0.03 (0.0-0.2) 10^3/uL Sodium 142 (136-145) mmol/L Potassium 3.9 (3.5-5.1) mmol/L Chloride 106 (98-107) mmol/L Carbon Dioxide 26.2 (21.0-32.0) mmol/L Anion Gap 9.8 (3-11) mmol/L BUN 11 (7-18) mg/dL Creatinine 0.8 (0.55-1.02) mg/dL Est GFR (CKD-EPI 2020) 90.27 (mL/min/1.73m2) Glucose 105 (74-106) mg/dL Calcium 8.6 (8.5-10.1) mg/dL Magnesium 1.9 (1.8-2.4) mg/dL Total Bilirubin 0.4 (0.2-1.0) mg/dL AST 19 (15-37) U/L ALT 24 (14-59) U/L Alkaline Phosphatase 57 (46-116) U/L Troponin I < 4 (<or=51) ng/L Total Protein 6.5 (6.4-8.2) g/dL Albumin 3.4 (3.4-5.0) g/dL Urine Color (Yellow) Urine Clarity (Clear) Urine pH (5-8) Ur Specific [place] (1.005-1.025) Urine Protein (Neg-Trace) mg/dL Urine Ketones (Negative) mg/dL Urine Blood (Negative) Urine Nitrite (Negative) Urine Bilirubin (Negative) Urine Urobilinogen (Up to 0.2) mg/dL Ur Leukocyte Esterase (Negative) Urine Glucose (Negative) mg/dL Salicylates < 2.8 (<2.8) mg/dL Urine Opiates Screen Acetaminophen < 2 (10-30) ug/mL Ur Barbiturates Screen Ur Tricyclics Screen Ur Amphetamines Screen U Benzodiazepines Scrn Urine Cocaine Screen Ur THC Screen Ethyl Alcohol < 3.0 (<10) mg/dL [id number] Documentation Fingerstick Glucose Start: 05/16/25 13:49 Freq: Status: Complete Protocol: Activity Type Activity Date Activity User E-sign Co-sign Detail Recorded Client Recorded Date Recorded By Document 05/16/25 13:49 SHARMAINE ECHOLS(3) [id number] 05/16/25 13:49 SHARMAINE DAFITZON(4) Intake and Output - 24 Hour Total 05/16/25 13:37 thru 05/16/25 16:18 Intake Total 1000 Balance 1000 Weight 79.4 kg Intake: IV 1000 Falls Risk Assessment History of Falls Previous History 05/16/25 14:13 Contributing Factors Impairments,Incontinence, 05/16/25 14:13 Medications Ambulatory Aids Independent 05/16/25 14:13 Tubes/Lines None 05/16/25 14:13 Gait Evaluation W/no contributing factors 05/16/25 14:13 Cognition Cognitive impairment 05/16/25 14:13 Fall Total Score 49 05/16/25 14:13 Level of Risk Moderate Risk 05/16/25 14:13 Problems (Last Reviewed 05/09/25 @ 13:07 by Nat Eason MD) Anticholinergic crisis (Acute) Atypical migraine (Acute) Insomnia (Acute) Encephalopathy acute (Acute) Seizure (Acute) v v v v v v v v v Sending and/or Receiving Nurses: Please use comment section below to note any information pertinent to the patient hand-off not included above. Information / Comments: Pt brought to floor and settled into room by RN and INTENSIVE CARE NURSE. Pt was more lucid and able to carry on a conversation. States she feels more clear now. Pt asking for something to eat. SHe is on clear liquid diet and was brought some jello and applejuice. 3 bed rails up, bed alarm and posy alarm activated and pt oriented to room. call kelley within reach and pt aware for need to call for assistance before ambulating Report received from: Jana dailey SPECIAL NEEDS TUTOR
[2025-05-16 17:42] LABS: *AMPHETAMINES SCREEN URINE Negative (Negative); *BARBITURATES SCREEN URINE Negative (Negative); *BENZODIAZEPINES SCREEN URINE Positive (Negative); Cannabinoids THC Negative (Negative); Cocaine Screen,Urine Negative (Negative); METHADONE URINE SCREEN Negative (Negative); OPIATES URINE SCREEN Positive (Negative)
[2025-05-16 17:48] LABS: Tricyclic Antidepressants Negative (Negative)
[2025-05-16] MEDS: HYDROmorphone 4 MG TAB PO (18:06)
[2025-05-16 18:11] LABS: Troponin I 4 ng/L (<or=51)
[2025-05-16] MEDS: Lactated Ringers 1,000 ML 125 ML IV (19:06)
[2025-05-16] MEDS: Enoxaparin 40 MG/0.4 ML SYR SC (19:51)
[2025-05-16] MEDS: lamoTRIgine 100 MG TAB 200 MG PO (19:52)
[2025-05-16] MEDS: Magnesium Oxide 400 MG TAB 800 MG PO (19:52)
[2025-05-16] MEDS: Rosuvastatin 10 MG TAB PO (19:52)
[2025-05-16] MEDS: Acetaminophen 325 MG TAB 650 MG PO (19:52)
[2025-05-16] MEDS: Sacubitril/Valsartan 49 mg/51 mg TAB 2 EACH PO (21:05)
[2025-05-17] MEDS: Lactated Ringers 1,000 ML 125 ML IV (03:07)
--- NOTE | 2025-05-17 03:39 | NUR.NOTE ---
Nursing Note: This nurse spoke with poison control around 334. Poison control requested A&O status as well as most recent set of VS and wondered if anymore patches had been found. Poison control endorsed that her VS are reassuring.
[2025-05-17 06:51] LABS: Absolute Basophil Count 0.03 10^3/uL (0.0-0.2); Absolute Eosinophil Count 0.15 10^3/uL (0.0-0.7); Absolute Lymphocyte Count 1.92 10^3/uL (1.2-3.4); Absolute Monocyte Count 0.23 10^3/uL (0.1-0.8); Basophils % 0.8 %; Eosinophils % 3.8 %; HCT 38.9 % (36.0-46.0); HGB 12.7 g/dL (11.2-15.7); MCHC 32.6 % (32.0-36.0); MCV 92 fL (80-95); MPV 10.2 fL (8.0-11.0); Monocytes % 5.8 %; Neutrophils % 41.6 %; Platelet Count 142 10^3/uL (130-400); RBC 4.24 10^6/uL (3.93-5.22); RDW-SD 43.7 fL
[2025-05-17 06:54] LABS: Absolute Neutrophil Count 1.66 10^3/uL (1.2-6.7)
[2025-05-17 07:40] VITALS: BP 117/80; PULSE 75; RESP 17; TEMP 36.1; O2SAT 95
[2025-05-17 07:47] LABS: Anion Gap 7.3 mmol/L (3-11); BUN 9 mg/dL (7-18); CO2 28.7 mmol/L (21.0-32.0); CREATININE 0.7 mg/dL (0.55-1.02); Chloride 107 mmol/L (98-107); Estimated GFR 105.95 (mL/min/1.73m2); Glucose 92 mg/dL (74-106); Potassium 3.7 mmol/L (3.5-5.1); Sodium 143 mmol/L (136-145)
[2025-05-17] MEDS: lamoTRIgine 100 MG TAB 200 MG PO (07:58)
[2025-05-17] MEDS: Cyanocobalamin 500 MCG TAB 1000 MCG PO (07:58)
[2025-05-17] MEDS: Normal Saline Flush 10 ML SYR IVP (07:58)
[2025-05-17] MEDS: Cholecalciferol (Vitamin D3) 1,000 UNIT TAB 2000 UNITS PO (07:59)
[2025-05-17] MEDS: Magnesium Oxide 400 MG TAB PO (07:59)
[2025-05-17] MEDS: HYDROmorphone 4 MG TAB PO (07:59)
[2025-05-17] MEDS: Aspirin E.C. 81 MG TABEC PO (08:00)
[2025-05-17] MEDS: Omeprazole 20 MG CAPCR PO (08:00)
--- NOTE | 2025-05-17 08:48 | PDOC.CMIN ---
Date of service: 05/17/25 Time of Service: 08:48 Care Management Initial Assmt Initial Assessment Reason for Hospitalization: anticholinergic crisis Functional Status/Living Situation Patient Presentation: Jammie presented to the ED yesterday afternoon, accompanied by family, with c/o confusion and hallucinations that were described as severe. On arrival to ER, Jammie's family stated that the symptoms had been going on for hours and were constant. She was noted to be wearing more than one scopalomine patch. Jammie was up in the bedside chair when CM met with her today. She was very pleasant, engaged very easily with CM. She stated that she is feeling a lot better and is hoping to go home. Jammie did work with PT today, who recommended PT, but Jammie declined this offer and also offer of PT eval. Town of Residence: [facility] Resides with: Child (lives with and youngest daughter) and Spouse (Yoni) Significant Other/Family: Local (son and daughter are in the area and are in close contact.) Natural Supports: family Employment Status: Disabled Instrumental Activities of Daily Living (ADLs): Independent Activities/Hobbies/SocialSupport: enjoys reading Advance Directives Advance Directives: Do you have an Advance Directive: N 08/17/24, 07:04 AD On File at [facility]: N 08/17/24, 07:04 Date Asked 04/16/25 04/16/25, 16:41 AD Date Reviewed COLST On File at [facility] No 08/17/24, 07:04 COLST Date Scanned Code Status Resuscitation Status Full Code Insurance Coverage/Financial Issues Insurance: Medicare Part A & B Medicaid of [place] Care Team Visit Care Team Role Provider Type Diane Blas APRN MD [facility] STAFF PHYSICIAN Edie Ellis MD Primary Care Provider [facility] STAFF PHYSICIAN InPatient Reinaldo Bradshaw Other Providers OTHER ANNE Cool Emergency Provider PHYSICIANS SQL SERVER DBA DEVELOPER Prudencio Hamlin Admit Provider [facility] STAFF PHYSICIAN Attending Provider Discharge Potential Discharge Needs: PCP F/U Appt Anticipated Barriers to Discharge: None Identified Patient/Family Education Needs: Review discharge instructions, discuss Ask Me Three Transportation: Private vehicle Plan: Anticipate that Jammie will be discharged home with no new services. She will f/u with her PCP and continue per her plan of care. She will transport home in a private vehicle. CM will continue to follow and update the plan as needed. Social Determinants of Health Screening Social Determinants of health last assessed in clinic: 05/17/25 Will the Patient Participate in the Screening?: Yes Do you worry about having a steady place to live?: no Problems where you live: no known problems In the past 12 months, have you had to go without electric, gas, oil or water in your home?: no 1. Within the past 12 months, we worried whether our food would run out before we got money to buy more.: Don't know/refused 2. Within the past 12 months, the food we bought just didn't last and we didn't have money to get more.: Don't know/refused Has lack of transportation kept you from medical appointments or from doing things needed for daily living?: no Has anyone in your life made you feel unsafe or unsupported?: no How hard is it for you to pay for the very basics like food, housing, medical care, and heating? Would you say it is:: Not hard at all Do you want help finding or keeping work or a job?: I do not need or want help If for any reason you need help with day-to-day activities such as bathing, preparing meals, shopping, managing finances, etc., do you get the help you need?: I don?t need any help How often do you feel lonely or isolated from those around you?: Never Do you speak a language other than Citizen [place] at home?: No Does the patient want assistance with any of the above?: No PFSH All Active Problems (Updated 05/17/25 @ 00:03 by SHARMAINE ECHOLS) Anticholinergic drug overdose (Acute) Anticholinergic crisis (Acute) Insomnia (Acute) Post concussion syndrome (Acute) Migraine headache without aura (Acute 03/07/15) Chronic migraine (Acute 03/07/15) Medication overuse headache (Acute 03/07/15) Encephalopathy acute (Acute) Seizure (Acute) Contraindication to deep vein thrombosis (DVT) prophylaxis (Acute) Seizure (Acute) Intentional benzodiazepine overdose (Acute) Patellofemoral arthritis of left knee (Acute) Acute respiratory failure with hypoxia (Acute) Pulmonary edema (Acute) Acute respiratory distress (Acute) COVID-19 (Acute) Bilateral carpal tunnel syndrome (Acute) S/P R ECTR: 05/13/2022 Amplified musculoskeletal pain (Acute) Tendonitis of long head of biceps brachii of right shoulder (Acute) Bursitis of right shoulder (Acute) Traumatic tear of right rotator cuff (Acute) Calcific tendinitis of right shoulder (Acute) 40mg depo-medrol injection: 02/11/2022 Lateral epicondylitis of right elbow (Acute) 40mg depo-medrol injection: 02/11/2022 Hematest positive stools (Acute) 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 (Acute 01/25/14) Atypical chest pain (Acute) Palpitations (Acute) Spell of altered consciousness (Acute) Elevated brain natriuretic peptide (BNP) level (Acute) Chest pain (Acute) Screening for colon cancer (Acute) Tobacco use (Acute) Fecal occult blood test positive (Acute) Medical History Chronic back pain Pulmonary hypertension Type 2 diabetes mellitus Bipolar disorder Cardiomyopathy last echocardiogram 01/27/2019, LVEF 50-55%, no regional wall motion abnormalities, mild LVH, mild MR; normal RV size and function Knee abrasion Myalgia Urinary incontinence Fatigue Shortness of breath Dizziness, nonspecific Orthostasis Elbow fracture, right Hyperthyroidism Carpal tunnel syndrome, left Impingement syndrome of left shoulder (~03/2019) Left rotator cuff tear (~03/2019) Tendinitis of long head of biceps brachii of left shoulder (~03/2019) Bursitis of left shoulder (~03/2019) Cervical radiculopathy bilateral Acute kidney injury DVT prophylaxis Discharge planning issues Dyspnea control (01/25/14) Dehydration Suicidal ideation Change in mental status Tachycardia Splenomegaly Lactose intolerance Hyperlipidemia Depression Anxiety Chronic pain syndrome CAD (coronary artery disease) mild non-obstructive disease [place] cardiac cath [place] [facility] [place], more recent repeat cath unchanged but with pulmonary HTN Morbid obesity Diabetes Polycystic ovaries Surgical History S/P hysterectomy History of arthroscopy of left shoulder Hx of cardiac catheterization 08/2021-no stent placed History of endometrial ablation History of section x2 Previous back surgery Social History Smoking/Tobacco Use Status: Former Tobacco Use Quit status: quit date established Smoking risk assessment performed?: Yes Alcohol Intake: never Drug use: Never Substance use type: does not use Housing: house Number of Children: 3 current occupation: Disabled Current gender identity: female What is your relationship status?: Panel score (0-1 are the most socially isolated patients): 0 What type of physical activity do you participate in: none Do you feel safe at home: Yes Do you feel safe in your relationship?: Yes Female Reproductive History Menstrual control method: permanent sterilization
[2025-05-17] MEDS: Sacubitril/Valsartan 49 mg/51 mg TAB 2 EACH PO (09:01)
--- NOTE | 2025-05-17 09:36 | W.PM.PROGNOT ---
Date of Service Date of service: 05/17/25 Time of Service: 09:37 Assessment and Plan Assessment and plan (1) Anticholinergic drug overdose: Status: Acute Assessment and plan: Symptoms meeting criteria w findings of multiple patches of scopolamine on as patient as being using more than ordered This could also be seizure activity but will address working Dx of anticholinergic toxicity IVF tele benzo for agitation Bicarb for QRS> 120 ms and repeat EKG (2) Encephalopathy acute: Status: Acute Assessment and plan: Most likely d/t above as above (3) Atypical migraine: Status: Inactive Assessment and plan: continue home meds (4) Insomnia: Status: Acute Assessment and plan: melatonin at HS (5) Seizure: Status: Acute Assessment and plan: continue home meds Lovenox for DVT prophylaxis Objective Last Vital Signs Temp 36.1 C L 05/17/25 07:40 Pulse 75 05/17/25 07:40 Resp 17 05/17/25 07:40 BP 117/80 05/17/25 07:40 Pulse Ox 95 05/17/25 07:40 Laboratory Results - last 24 hr 05/16/25 05/16/25 05/16/25 14:07 15:05 17:16 WBC 5.91 RBC 4.98 Hgb 14.9 Hct 44.4 MCV 89 MCH 29.9 MCHC 33.6 RDW 12.9 Plt Count 177 MPV 9.7 Immature Gran % 0.2 Neutrophils % 63.6 Lymphocytes % 28.4 Monocytes % 5.9 Eosinophils % 1.4 Basophils % 0.5 Nucleated RBC % 0.0 Absolute Neutrophils 3.76 Absolute Lymphocytes 1.68 Absolute Monocytes 0.35 Absolute Eosinophils 0.08 Absolute Basophils 0.03 Sodium 142 Potassium 3.9 Chloride 106 Carbon Dioxide 26.2 Anion Gap 9.8 BUN 11 Creatinine 0.8 Est GFR (CKD-EPI 2020) 90.27 Glucose 105 Calcium 8.6 Magnesium 1.9 Total Bilirubin 0.4 AST 19 ALT 24 Alkaline Phosphatase 57 Troponin I < 4 4 Total Protein 6.5 Albumin 3.4 Urine Color Yellow Urine Clarity Clear Urine pH 8.5 H Ur Specific [place] 1.020 Urine Protein Negative Urine Ketones 40 H Urine Blood Negative Urine Nitrite Negative Urine Bilirubin Negative Urine Urobilinogen 0.2 Ur Leukocyte Esterase Negative Urine Glucose 500 H Salicylates < 2.8 Urine Opiates Screen Positive A Urine Methadone Screen Negative Acetaminophen < 2 Ur Barbiturates Screen Negative Ur Tricyclics Screen Negative Ur Amphetamines Screen Negative U Benzodiazepines Scrn Positive A Urine Cocaine Screen Negative Ur THC Screen Negative Ethyl Alcohol < 3.0 05/16/25 05/17/25 17:46 05:59 WBC 4.00 L RBC 4.24 Hgb 12.7 D Hct 38.9 MCV 92 MCH 30.0 MCHC 32.6 RDW 13.0 Plt Count 142 MPV 10.2 Immature Gran % 0.0 Neutrophils % 41.6 Lymphocytes % 48.0 Monocytes % 5.8 Eosinophils % 3.8 Basophils % 0.8 Nucleated RBC % 0.0 Absolute Neutrophils 1.66 Absolute Lymphocytes 1.92 Absolute Monocytes 0.23 Absolute Eosinophils 0.15 Absolute Basophils 0.03 Sodium 143 Potassium 3.7 Chloride 107 Carbon Dioxide 28.7 Anion Gap 7.3 BUN 9 Creatinine 0.7 Est GFR (CKD-EPI 2020) 105.95 Glucose 92 Calcium 8.0 L Magnesium Total Bilirubin AST ALT Alkaline Phosphatase Troponin I 4 Total Protein Albumin Urine Color Urine Clarity Urine pH Ur Specific [place] Urine Protein Urine Ketones Urine Blood Urine Nitrite Urine Bilirubin Urine Urobilinogen Ur Leukocyte Esterase Urine Glucose Salicylates Urine Opiates Screen Urine Methadone Screen Acetaminophen Ur Barbiturates Screen Ur Tricyclics Screen Ur Amphetamines Screen U Benzodiazepines Scrn Urine Cocaine Screen Ur THC Screen Ethyl Alcohol
--- NOTE | 2025-05-17 10:09 | IN_ITS ---
PT Notes Visit Reasons: Anticholinergic crisis Physical Therapy Day Surgery Initial Evaluation Date: 05/17/2025 Referring Doctor: Diane Blas NP PT Orders: PT CONSULT: Fall safety assessment, safety consult for discharge Precautions: Seizure, IV access LUE, Standard, fall risk Patient Profile/Admitting Diagnosis: This 49 years old female patient with a past medical history of seizure disorder, pulmonary hypertension, past intentional benzodiazepine overdose, CAD, diabetes, bipolar,chronic paresthesias of the legs associated with opioid hypoalgesia, cardiomyopathy, fatigue, hyperthyroid, anxiety, chronic pain, polycystic ovaries presented to the ED at [facility] for evaluation of confusion, hallucinations.The patient is followed by neurology for spells of altered consciousness which the neurologist describes as both epileptic and nonepileptic. Patient reported adjusting her scopolamine patch dosing up, confusion, malaise and weakness, dry mouth, daily vomiting. Patient found to have 2 scopolamine patches on by RN. Head CT was negative for intracranial process.UDS positive for benzos and opiates, labs otherwise unremarkable. S/p consultation with poison control recommendation made for benzodazepines for agitation, sodium bicarbonate 2-3 amps for QRS prolongation>120 ms with f/u EKG;EKG in the ED showed a QRS of 89 ms.. The patient was admitted to the medical surgical floor for anticholinergic toxicity by the hospitalist team. PMHX: Anticholinergic drug overdose (Acute) Anticholinergic crisis (Acute) Atypical migraine (Acute) Insomnia (Acute) Post concussion syndrome (Acute) Migraine headache without aura (Acute 03/07/15) Chronic migraine (Acute 03/07/15) Medication overuse headache (Acute 03/07/15) Encephalopathy acute (Acute) Seizure (Acute) Contraindication to deep vein thrombosis (DVT) prophylaxis (Acute) Seizure (Acute) Intentional benzodiazepine overdose (Acute) Patellofemoral arthritis of left knee (Acute) Acute respiratory failure with hypoxia (Acute) Pulmonary edema (Acute) Acute respiratory distress (Acute) COVID-19 (Acute) Bilateral carpal tunnel syndrome (Acute) S/P R ECTR: 2Amplified musculoskeletal pain (Acute) Tendonitis of long head of biceps brachii of right shoulder (Acute) Bursitis of right shoulder (Acute) Traumatic tear of right rotator cuff (Acute) Calcific tendinitis of right shoulder (Acute) 40mg depo-medrol injection: 02/11/2022Lateral epicondylitis of right elbow (Acute) 40mg depo-medrol injection: 02/11/2022Hematest positive stools (Acute) 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 (Acute 01/25/14) Atypical chest pain (Acute) Palpitations (Acute) Spell of altered consciousness (Acute) Elevated brain natriuretic peptide (BNP) level (Acute) Chest pain (Acute) Screening for colon cancer (Acute) Tobacco use (Acute) Fecal occult blood test positive (Acute) Medical History Chronic back pain Pulmonary hypertension Type 2 diabetes mellitus Bipolar disorder Cardiomyopathy last echocardiogram 01/27/2019, LVEF 50-55%, no regional wall motion abnormalities, mild LVH, mild MR; normal RV size and functionKnee abrasion Myalgia Urinary incontinence Fatigue Shortness of breath Dizziness, nonspecific Orthostasis Elbow fracture, right Hyperthyroidism Carpal tunnel syndrome, left Impingement syndrome of left shoulder (~03/2019) Left rotator cuff tear (~03/2019) Tendinitis of long head of biceps brachii of left shoulder (~03/2019) Bursitis of left shoulder (~03/2019) Cervical radiculopathy bilateralAcute kidney injury DVT prophylaxis Discharge planning issues Dyspnea control (01/25/14) Dehydration Suicidal ideation Change in mental status Tachycardia Splenomegaly Lactose intolerance Hyperlipidemia Depression Anxiety Chronic pain syndrome CAD (coronary artery disease) mild non-obstructive disease per cardiac cath report from [facility] 09/07/2013, more recent repeat cath unchanged but with pulmonary HTNMorbid obesity Diabetes Polycystic ovaries Surgical History S/P hysterectomy History of arthroscopy of left shoulder Hx of cardiac catheterization 08/2021-no stent placedHistory of endometrial ablation History of section [id number] back surgery Social History/Home Situation: Pt resides with and son in [facility] with steps to enter. Pt reports being independent at home at times she needs to use a wa lker or cane. She reports independent ADL Equipment Owned/DME: walker , cane, Subjective: Pt reports she her left arm, and abdominal muscles are sore today from holding herself up so long yesterday before she got to the ED. Pt notes she has chronic LBP from old back surgery. She states if she takes her meds on schedule then her pain is manageable at a 5/10 Objective: [] General Observation: young female seated in chair with IV infusing in LUE. Mental Status: alert and Ox4, cooperative, able to follow instructions Pain: 5/10 back; left arm and abdominals sore ROM: [] Right Upper Extremity: WFL Left Upper Extremity: WFL Right Lower Extremity:WFL Left Lower Extremity: WFL Strength: Right Upper Extremity:3/5 Left Upper Extremity: 3/5 Right Lower Extremity: >/=to 3/5 Left Lower Extremity: >/=to 3/5 Sensation: Intact Bed Mobility/Transfers: [] Supine to sit independent Sit to stand supervision with cues for hand placement Stand to sit supervision with cues for hand placement Bed to chair supervision with FWW Gait: Ambulate with FWW 100 feet with slow dillan reduced step length bilateral supervision Stairs: 5 steps with rail step to pattern standby assist Balance: [] Static Sitting: Normal Dynamic Sitting: Good Static Standing: Good Dynamic Standing: Fair plus Special Tests: [] Mobility Limitations Standardized Measure [] [facility] AM-PAC 6 clicks Basic Mobility Inpatient Short Form: [] Raw Score: 21 CMS Score: 28.97% Informed Consent/Education: Patient instructed in purpose of PT consult. Assessment: Patient is a 49-year-old female who presents with clinical signs and symptoms consistent with current/admitting diagnoses that have resulted to mobility limitations, gait instability, generalized weakness, and impairment of motor control as demonstrated by the following impairment level findings: 1. Decreased strength to BLE/BUE major muscle groups 2. Impaired standing balance 3. Impaired functional activity tolerance 4. pain in back,abdominals and LUE Impairments are contributing to the following functional limitations: 1. Inability to safely ambulate without assistive device 2. Increase completion time for mobility ADL performance 3. Increased fall risk 4. difficulty performing stairs without assistance Despite deficits stated above patient is appropriate for discharge to home and would benefit from home health PT. Anticipate patient discharged home later this day per MD Patient is assessed as a moderate complexity based on the following: History: 49-year-old female with impairment level findings, functional limitations, and past medical history as indicated above Examination: Demonstrable impairment in strength, balance, and mobility level with underlying impairments and functional limitations as documented above Presentation: evolving Decision Making: moderate Goals: N/A. PT evaluation and 1-2 treatment sessions only for functional mobility training using recommended AD and for HEP instruction. Plan of Care/Treatment Plan: N/A. PT evaluation and 1-2 treatment session only for functional mobility training using recommended AD and for HEP instruction. DISCHARGE RECOMMENDATIONS: Home with HHPT and supervision with use of FWW TREATMENT CODE/TIME: [id number] Thank you for the opportunity to participate in the care of this patient. [facility]
[2025-05-17 11:40] VITALS: BP 120/75; PULSE 72; RESP 17; TEMP 36.4; O2SAT 99
--- NOTE | 2025-05-17 12:44 | DSE_ITS ---
Date of service: 05/17/25 Time of Service: 12:44 DS: Diagnosis Discharge Diagnosis (1) Anticholinergic drug overdose: Status: Acute (2) Encephalopathy acute: Status: Acute (3) Atypical migraine: Status: Inactive (4) Insomnia: Status: Acute (5) Seizure: Status: Acute Discharge Plan Disposition Patient Disposition: Home Condition: Improving Discharge Details Reason For Visit: Anticholinergic crisis Admit Date/Time: 05/16/25 15:59 Admit Provider: Prudencio Hamlin Attending Provider: Prudencio Hamlin Primary Care Provider: Edie Ellis [facility] Hospital Course: This 49 years old female patient with a past medical history of seizure disorder, pulmonary hypertension, past intentional benzodiazepine overdose, CAD, diabetes, bipolar,chronic paresthesias of the legs associated with opioid hypoalgesia, cardiomyopathy, fatigue, hyperthyroid, anxiety, chronic pain, polycystic ovaries presented to the ED at [facility] for evaluation of confusion, cisneros llucinations.The patient is followed by neurology for spells of altered consciousness which the neurologist describes as both epileptic and nonepileptic . Patient reported adjusting her scopolamine patch dosing up. confusion, malaise and weakness, dry mouth, daily vomiting. Patient found to have 2 scopolamine patches on by RN. Head CT was negative for intracranial process.UDS positive for benzos and opiates, labs otherwise unremarkable. S/p consultation with poison control recommendation made for benzodazepines for agitation, sodium bicarbonate 2-3 amps for QRS prolongation>120 ms with f/u EKG;EKG in the ED showed a QRS of 89 ms.. The patient was admitted to the medical surgical floor for anticholinergic toxicity by the hospitalist team. The patient is back to baseline, hemodynamically stable w/o arrhythmia on telemetry-QRS around 0.08 sec.The patient will be discharged home with follow-up with PCP within 7 days of discharge. She was educated on taking her medicines as ordered and verbalized understanding. Recommendation for PCP follow-up Neurology referral follow up on lamictal level done inpatient Ongoing education on complaince to medicine orders Discussed with Dr. Hamlin Home Meds and New Rx's Prescriptions: Continued melatonin 10 mg tablet 10 mg PO HS PRN loratadine 10 mg capsule 10 mg PO DAILY mirabegron [Myrbetriq] 25 mg tablet extended release 24 hr 25 mg PO Q24H Patient Comments: TAKE ONE TABLET BY MOUTH EVERY DAY gabapentin 100 mg capsule 100 mg PO DAILY Aimovig Autoinjector 140 mg/mL auto-injector 140 mg subcut QMONTH Qty: 1 11RF cholecalciferol (vitamin D3) 50 mcg (2,000 unit) capsule 50 mcg PO DAILY naratriptan 2.5 mg tablet 2.5 mg PO BID PRN polyethylene glycol 3350 17 gram/dose Powder 17 g PO DAILY PRN cyanocobalamin (vitamin B-12) 1,000 mcg tablet 1,000 mcg PO DAILY Patient Comments: TAKE ONE TABLET BY MOUTH EVERY DAY dapagliflozin propanediol [Farxiga] 5 mg tablet 5 mg PO QPM Patient Comments: Take 1 tablet by mouth once a day Entresto 97-103 mg tablet 1 tab PO BID Patient Comments: TAKE ONE TABLET BY MOUTH TWICE A DAY hydroxyzine HCl 25 mg tablet 25 mg PO TID PRN Patient Comments: TAKE ONE TABLET BY MOUTH THREE TIMES A DAY NEEDED FOR ANXIETY L-Carnitine 500 mg tablet 1,000 mg PO DAILY Patient Comments: TAKE TWO TABLETS BY MOUTH EVERY DAY magnesium oxide 400 MG tablet See Rx Instructions PO HS Patient Comments: 400mg AM, 800mg HS per pt Rx Instructions: 400mg in AM, 800mg HS orally bedtime; docusate sodium [Colace] 100 mg capsule 100 mg PO DAILY PRN Patient Comments: PRN per pt hydrocortisone 2.5 % cream 1 applic topical QID PRN omeprazole 20 mg Capsule,Delayed Release(Dr/Ec) 20 mg PO DAILY prochlorperazine maleate 10 mg Tablet 10 mg PO DAILY PRN (Reason: Headache) albuterol sulfate [Ventolin HFA] 90 mcg/actuation Hfa Aerosol Inhaler 2 puff INHALATION QID PRN naloxone [Narcan] 4 mg/actuation [place],Non-Aerosol 1 spray INTRANASAL ONCE PRN Patient Comments: Never used. aspirin 81 mg tablet,delayed release (DR/EC) 81 mg PO DAILY Qty: 14 0RF Rx Instructions: Take 1 daily with a meal for 30 days estradiol 1 mg tablet See Rx Instructions .ROUTE .COMPLEX Patient Comments: TAKE 1 TABLET BY MOUTH EVERY MORNING THEN 1.5 TABLETS EVERY EVENING Rx Instructions: --> 1mg qAM and 1.5m,g qPM acetaminophen 500 mg capsule 1,000 mg PO Q8H PRN PRNQty: 30 0RF lamotrigine 200 mg tablet 200 mg PO BID naproxen 500 mg tablet 500 mg PO BID PRN rosuvastatin 10 mg tablet 10 mg PO HS Patient Comments: TAKE ONE TABLET BY MOUTH AT BEDTIME riboflavin (vitamin B2) [Vitamin B-2] 100 mg tablet 200 mg PO BID Patient Comments: TAKE TWO TABLETS BY MOUTH EVERY DAY TWO TIMES A DAY paroxetine HCl 40 mg tablet 40 mg PO DAILY Patient Comments: TAKE ONE TABLET BY MOUTH EVERY DAY hydromorphone 4 mg tablet 4 mg PO BID Patient Comments: TAKE ONE TABLET BY MOUTH TWICE A DAY FOR PAIN bupropion HCl 450 mg tablet extended release 24 hr 450 mg PO ONCE Patient Comments: TAKE ONE TABLET BY MOUTH EVERY DAY scopolamine base 1 mg over 3 days patch 3 day 1 patch transdermal Q48H Patient Comments: APPLY ONE PATCH TO THE SKIN EVERY OTHER DAY Trintellix 20 mg tablet 20 mg PO DAILY Patient Comments: TAKE ONE TABLET BY MOUTH EVERY DAY Trintellix 10 mg tablet 10 mg PO DAILY Patient Comments: TAKE ONE TABLET BY MOUTH EVERY DAY clonazepam 0.5 mg tablet 0.5 mg PO BID PRN Patient Comments: TAKE ONE TO TWO TABLETS BY MOUTH THREE TIMES EVERY DAY NEEDED FOR EXTREME ANXIETY/PANIC ATTACKS; USE SPARINGLY Trulicity 1.5 mg/0.5 mL pen injector 1.5 mg SUBCUT QWEEK Patient Comments: INJECT 1.5 MG (ONE PEN) SUBCUTANEOUSLY ONCE WEEKLY Discharge Instructions Referrals: Edie Ellis MD [Primary Care Provider, Medicine] Referral Note: follow-up within 7 days of discharge Activity:: Activity as Tolerated Equipment/Supplies:: No Equipment Needed Diet:: As Tolerated Discharge Orders Discharge Orders: Discharge Order (Routine); Ordered 05/17/25 Ordered By: Diane Blas DS: Summary Time Spent with Patient providing and/or coordinating discharge services: Greater than 30 minutes Status at Discharge Functional status at discharge: independent ambulation Overall status at discharge: patient is back to baseline Mental Status: mental status grossly normal Speech and Movement: speech and movement normal Mood: congruent mood Affect: normal affect Quality:SDOH Health Related Social Needs: Health related social needs details Lives with and son. Her son is coming to get her. Exam Narrative Exam Narrative: 49 yo female patient appearing of stated age with moist mucous membranes, no flushing, skin cool to the touch, , awake alert oriented x 3 no focal deficit, clear lungs, S1-S2 regular, abdomen is nondistended soft nontender bowel sounds are present , moves all 4 extremities Psych Mental Status: mental status grossly normal Speech and Movement: speech and movement normal Mood: congruent mood Affect: normal affect DS: Data Vitals/I&O Vitals and I&O: Vital Signs Temperature 36.4 C L 05/17/25 11:40 Temperature Source Temporal Artery Scan 05/17/25 11:40 Pulse 72 05/17/25 11:40 Pulse 85 05/16/25 14:51 Respiratory Rate 17 05/17/25 11:40 Respiratory Effort Normal 05/16/25 19:27 Respiratory Depth Normal 05/16/25 19:27 Respiratory Pattern Normal 05/16/25 19:27 Blood Pressure 120/75 05/17/25 11:40 Blood Pressure Mean 90 05/17/25 11:40 Blood Pressure Position Supine 05/16/25 13:47 Pulse Oximetry 99 05/17/25 11:40 Oxygen Delivery Method Room Air 05/17/25 11:40 Oxygen Flow Rate 0 05/17/25 11:40 Pain Level 0 05/17/25 11:40 Intake & Output 05/16/25 05/17/25 05/17/25 23:59 11:59 23:59 Intake Total 2350 / 2350 1600 / 1600 Output Total 350 / 350 1350 / 1350 Balance 1999 250 / 250 Weight 79.4 kg Intake: IV 1999 1000 / 1000 Oral 350 / 350 600 / 600 Output: Urine 350 / 350 1350 / 1350 Other: Urine Color Yellow Yellow Urine Appearance Clear Clear Urine Odor Normal Data Completed and Pending Labs on day of discharge: Labs from last 24 hours 05/17/25 05/16/25 05/16/25 05:59 17:46 17:16 WBC 4.00 L RBC 4.24 Hgb 12.7 D Hct 38.9 MCV 92 MCH 30.0 MCHC 32.6 RDW 13.0 Plt Count 142 MPV 10.2 Immature Gran % 0.0 Neutrophils % 41.6 Lymphocytes % 48.0 Monocytes % 5.8 Eosinophils % 3.8 Basophils % 0.8 Nucleated RBC % 0.0 Absolute Neutrophils 1.66 Absolute Lymphocytes 1.92 Absolute Monocytes 0.23 Absolute Eosinophils 0.15 Absolute Basophils 0.03 Sodium 143 Potassium 3.7 Chloride 107 Carbon Dioxide 28.7 Anion Gap 7.3 BUN 9 Creatinine 0.7 Est GFR (CKD-EPI 2020) 105.95 Glucose 92 Calcium 8.0 L Magnesium Total Bilirubin AST ALT Alkaline Phosphatase Troponin I 4 Total Protein Albumin Urine Color Yellow Urine Clarity Clear Urine pH 8.5 H Ur Specific Parks 1.020 Urine Protein Negative Urine Ketones 40 H Urine Blood Negative Urine Nitrite Negative Urine Bilirubin Negative Urine Urobilinogen 0.2 Ur Leukocyte Esterase Negative Urine Glucose 500 H Salicylates Urine Opiates Screen Positive A Urine Methadone Screen Negative Acetaminophen Ur Barbiturates Screen Negative Ur Tricyclics Screen Negative Ur Amphetamines Screen Negative U Benzodiazepines Scrn Positive A Urine Cocaine Screen Negative Ur THC Screen Negative Ethyl Alcohol 05/16/25 05/16/25 15:05 14:07 WBC 5.91 RBC 4.98 Hgb 14.9 Hct 44.4 MCV 89 MCH 29.9 MCHC 33.6 RDW 12.9 Plt Count 177 MPV 9.7 Immature Gran % 0.2 Neutrophils % 63.6 Lymphocytes % 28.4 Monocytes % 5.9 Eosinophils % 1.4 Basophils % 0.5 Nucleated RBC % 0.0 Absolute Neutrophils 3.76 Absolute Lymphocytes 1.68 Absolute Monocytes 0.35 Absolute Eosinophils 0.08 Absolute Basophils 0.03 Sodium 142 Potassium 3.9 Chloride 106 Carbon Dioxide 26.2 Anion Gap 9.8 BUN 11 Creatinine 0.8 Est GFR (CKD-EPI 2020) 90.27 Glucose 105 Calcium 8.6 Magnesium 1.9 Total Bilirubin 0.4 AST 19 ALT 24 Alkaline Phosphatase 57 Troponin I 4 < 4 Total Protein 6.5 Albumin 3.4 Urine Color Urine Clarity Urine pH Ur Specific [place] Urine Protein Urine Ketones Urine Blood Urine Nitrite Urine Bilirubin Urine Urobilinogen Ur Leukocyte Esterase Urine Glucose Salicylates < 2.8 Urine Opiates Screen Urine Methadone Screen Acetaminophen < 2 Ur Barbiturates Screen Ur Tricyclics Screen Ur Amphetamines Screen U Benzodiazepines Scrn Urine Cocaine Screen Ur THC Screen Ethyl Alcohol < 3.0 PFSH All Active Problems (Updated 05/17/25 @ 00:03 by SHARMAINE ECHOLS) Anticholinergic drug overdose (Acute) Anticholinergic crisis (Acute) Insomnia (Acute) Post concussion syndrome (Acute) Migraine headache without aura (Acute 03/07/15) Chronic migraine (Acute 03/07/15) Medication overuse headache (Acute 03/07/15) Encephalopathy acute (Acute) Seizure (Acute) Contraindication to deep vein thrombosis (DVT) prophylaxis (Acute) Seizure (Acute) Intentional benzodiazepine overdose (Acute) Patellofemoral arthritis of left knee (Acute) Acute respiratory failure with hypoxia (Acute) Pulmonary edema (Acute) Acute respiratory distress (Acute) COVID-19 (Acute) Bilateral carpal tunnel syndrome (Acute) S/P R ECTR: 05/13/2022 Amplified musculoskeletal pain (Acute) Tendonitis of long head of biceps brachii of right shoulder (Acute) Bursitis of right shoulder (Acute) Traumatic tear of right rotator cuff (Acute) Calcific tendinitis of right shoulder (Acute) 40mg depo-medrol injection: 02/11/2022 Lateral epicondylitis of right elbow (Acute) 40mg depo-medrol injection: 02/11/2022 Hematest positive stools (Acute) 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 (Acute 01/25/14) Atypical chest pain (Acute) Palpitations (Acute) Spell of altered consciousness (Acute) Elevated brain natriuretic peptide (BNP) level (Acute) Chest pain (Acute) Screening for colon cancer (Acute) Tobacco use (Acute) Fecal occult blood test positive (Acute) Medical History Chronic back pain Pulmonary hypertension Type 2 diabetes mellitus Bipolar disorder Cardiomyopathy last echocardiogram 01/27/2019, LVEF 50-55%, no regional wall motion abnormalities, mild LVH, mild MR; normal RV size and function Knee abrasion Myalgia Urinary incontinence Fatigue Shortness of breath Dizziness, nonspecific Orthostasis Elbow fracture, right Hyperthyroidism Carpal tunnel syndrome, left Impingement syndrome of left shoulder (~03/2019) Left rotator cuff tear (~03/2019) Tendinitis of long head of biceps brachii of left shoulder (~03/2019) Bursitis of left shoulder (~03/2019) Cervical radiculopathy bilateral Acute kidney injury DVT prophylaxis Discharge planning issues Dyspnea control (01/25/14) Dehydration Suicidal ideation Change in mental status Tachycardia Splenomegaly Lactose intolerance Hyperlipidemia Depression Anxiety Chronic pain syndrome CAD (coronary artery disease) mild non-obstructive disease per cardiac cath report from [facility] [place] [facility] [place], more recent repeat cath unchanged but with pulmonary HTN Morbid obesity Diabetes Polycystic ovaries Surgical History S/P hysterectomy History of arthroscopy of left shoulder Hx of cardiac catheterization 08/2021-no stent placed History of endometrial ablation History of section x2 Previous back surgery Social History Smoking/Tobacco Use Status: Former Tobacco Use Quit status: quit date established Smoking risk assessment performed?: Yes Alcohol Intake: never Drug use: Never Substance use type: does not use Housing: house Number of Children: 3 current occupation: Disabled Current gender identity: female What is your relationship status?: Panel score (0-1 are the most socially isolated patients): 0 What type of physical activity do you participate in: none Do you feel safe at home: Yes Do you feel safe in your relationship?: Yes Female Reproductive History Menstrual control method: permanent sterilization Time Spent with Patient Time Spent with Patient: >85 minutes Time was spent: preparing to see the patient(eg.review tests), obtaining and/or reviewing separately otained hiistory, ordering medications,tests, procedures, referring, communicating with other health resident care aid, indepentently interpreting results, counseling the patient and care coordination
--- NOTE | 2025-05-17 15:01 | PDOC.CMDIS ---
Date of service: 05/17/25 Time of Service: 15:01 LACE Index Scoring Tool Questions: Length of Stay (in days): 1 Was the patient admitted via the E.D.?: Yes Comorbidities: Diabetes w/o Complication E.D. Visits: 3 Answers: Total Score: 8 Risk of Readmission: Low Risk Care Management Discharge Plan Reason for Hospitalization: anticholinergic crisis Discharge Plan: Jammie will discharge home this afternoon with no new services. She will f/u with her PCP and continue per her plan of care. Jammie will transport home in a private vehicle. Patient/Family Education Needs: Review of discharge instructions, activity, limitations and discuss Ask me 3. SDOH Health Related Social Needs: Health related social needs details Lives with and son. Her son is coming to get her.
--- NOTE | 2025-05-17 15:18 | CHAPLAIN ---
Jammie was sitting up in bed when I visited. She said she's hoping to go home today. I explained my role and offered support.
[2025-05-17 15:30] VITALS: BP 117/74; PULSE 79; RESP 17; TEMP 36; O2SAT 100
[2025-05-20 12:33] LABS: Lamotrigine 4.4 mcg/mL (3.0-15.0)
== END 2025-05-17 15:49 | disposition home or self-care (01) ==
LOC: ER 16:07 → MS 17:17
PROVIDERS: Admitting Provider Family Medicine; Emergency Provider Physician Assistant; PCP Family Medicine; Responsible Provider Nurse Practitioner Acute Care; Visit Provider Family Medicine
DX: T44.3X1A Poisoning by other parasympatholytics [anticholinergics and antimuscarinics] and spasmolytics, accidental (unintentional), initial encounter (principal); G92.8 Other toxic encephalopathy; R56.9 Unspecified convulsions; I27.20 Pulmonary hypertension, unspecified; I25.10 Atherosclerotic heart disease of native coronary artery without angina pectoris; E11.9 Type 2 diabetes mellitus without complications; F31.9 Bipolar disorder, unspecified; I42.9 Cardiomyopathy, unspecified; E05.90 Thyrotoxicosis, unspecified without thyrotoxic crisis or storm; Z79.899 Other long term (current) drug therapy; Z79.85 Long-term (current) use of injectable non-insulin antidiabetic drugs; F41.9 Anxiety disorder, unspecified; R20.8 Other disturbances of skin sensation; R53.83 Other fatigue; G89.29 Other chronic pain; E28.2 Polycystic ovarian syndrome
CPT/HCPCS: 00123; 36415; 36416; 80048; 80053; 80175; 80307; 82962; 93005; 96361; 96372; 96374; 97162; 99285; J1650; 70450; 80320; 80329; 81003; 83735; 84484; 85025; 93010; 99223; 99239; G0378; J2250

== ENCOUNTER 2025-08-30 18:10 | Outpatient (REF) | payer MEDICARE, MEDICAID, SELFPAY ==
[2025-08-30 21:12] LABS: COMMENT (LAB VIEW ONLY) 54.58 mg/dL; Microalb ug/mg Crea 10.3 ug/mg Cr
== END 2025-08-30 18:11 | disposition home or self-care (01) ==
LOC: NCHCN 18:10
PROVIDERS: PCP Family Medicine; Visit Provider Family Medicine
DX: E11.9 Type 2 diabetes mellitus without complications (principal)
CPT/HCPCS: 82043; 82570

== ENCOUNTER → 2025-09-20 14:41 | Outpatient (BNVA) | payer MEDICARE, MEDICAID, SELFPAY | PROVIDERS: PCP Family Medicine; Referring Provider Family Medicine; Visit Provider Psychiatry & Neurology Neurology | DX: R40.4 Transient alteration of awareness (principal); G44.40 Drug-induced headache, not elsewhere classified, not intractable; G43.709 Chronic migraine without aura, not intractable, without status migrainosus; R07.81 Pleurodynia; G47.00 Insomnia, unspecified; R56.9 Unspecified convulsions | CPT/HCPCS: 99214 ==

== ENCOUNTER → 2025-10-10 02:16 | Outpatient (CLI) | payer MEDICARE, MEDICAID, SELFPAY ==
--- NOTE | 2025-10-10 | DI.MAMMO_ITS ---
Exam(s) MAMMO SCREENING EXAM: MAMMO SCREENING CLINICAL HISTORY: Z12.31 Screening. TECHNIQUE: Bilateral full field digital CC and MLO mammographic images were obtained with 3D tomosynthesis and utilizing computer aided detection (CAD). COMPARISON: Prior mammograms were reviewed. FINDINGS: There has been no significant change in the appearance and distribution of the fibroglandular tissue. There are no new spiculated masses nor malignant appearing microcalcification groups. There is no significant architectural distortion nor skin thickening-retraction. IMPRESSION: No radiographic evidence of malignancy. BI-RADS Category 1 - Negative Breast Density - Category B - There are scattered areas of fibroglandular density. Breast density Category C or D implies that the patient has dense breast tissue. Dense breast tissue can make it harder to find cancer on a mammogram. Dense breast tissue is also associated with an increased risk of breast cancer. This information about the result of the mammogram report was provided to the patient to raise their awareness. Use this report when you speak with the patient about their risks for breast cancer, which includes their family history. At that time, you may recommend additional screening tests (Ultrasound or MRI) as these tests may add significant information. A negative radiographic report should not delay biopsy if a dominant or clinically suspicious mass is present. Up to ten percent of cancers are not identified on mammography. A negative report may reinforce clinical impression. Adenosis and dense breasts may obscure an underlying neoplasm. False positive reports average 6 to 10%. Patient will receive a letter notifying them of these results.
== END ==
LOC: DI 02:16
PROVIDERS: PCP Family Medicine; Visit Provider Family Medicine
DX: Z12.31 Encounter for screening mammogram for malignant neoplasm of breast (principal)
CPT/HCPCS: 77063; 77067